=== PATIENT | female | born 1950 | race Caucasian/White ===

== ENCOUNTER 2020-04-25 09:52 | Outpatient (REF) | payer MEDICARE, MEDICAID, SELFPAY ==
--- NOTE | 2020-04-25 11:49 | ECG_ITS ---
Test Reason : CP Blood Pressure : / mmHG Vent. Rate : 086 BPM Atrial Rate : 086 BPM P-R Int : 154 ms QRS Dur : 078 ms QT Int : 360 ms P-R-T Axes : 052 047 041 degrees QTc Int : 430 ms Normal sinus rhythm Nonspecific ST abnormality Abnormal ECG When compared with ECG of 07-NOV-2019 11:13, No significant change was found Referred By: Kim Quinn Electronically Signed By:JORGE LAUGHLIN MD
[2020-04-25 11:59] LABS: MANUAL DIFF FLAG NO
[2020-04-25 12:09] LABS: Basophils Percent Auto 0.2 % (0-2); Eosinophils Absolute Auto 0.3 X10*3/uL (0.0-0.4); Eosinophils Percent Auto 2.1 % (0-4); Hematocrit 41.7 % (37-47); Hemoglobin 12.9 g/dl (12.0-16.0); Imm Gran Abs Auto 0.04 X10*3/uL (0.00-0.03); Imm Gran Pct Auto 0.3 % (0.0-0.4); Lymphocytes Absolute Auto 3.8 X10*3/uL (1.2-4.9); Lymphocytes Percent Auto 31.4 % (20-40); Mean Corpuscular HGB Conc 30.9 g/dl (31.0-35.0); Mean Corpuscular Hemoglobin 27.6 pg (27.0-33.0); Mean Corpuscular Volume 89.3 fL (80-98); Monocytes Absolute Auto 0.7 X10*3/uL (0.1-1.2); Monocytes Percent Auto 5.7 % (2-11); Neutrophils Absolute Auto 7.3 X10*3/uL (2.0-8.3); Neutrophils Percent Auto 60.3 % (45-73); Platelet Count 286 X10*3/uL (160-400); Red Blood Count 4.67 X10*6/uL (4.20-5.50); Red Cell Distribution Width 13.9 % (11.0-16.0); White Blood Count 12.1 X10*3/uL (4.8-10.8)
[2020-04-25 12:48] LABS: Anion Gap 14 (12-20); Blood Urea Nitrogen 15 mg/dL (9-16); Calcium 9.2 mg/dL (8.4-10.2); Carbon Dioxide 31 mmol/L (22-29); Chloride 101 mmol/L (96-108); Estimated Glomerular Filt Rate 48; Glucose Random 89 mg/dL (60-115); Potassium 4.7 mmol/l (3.3-5.1); Sodium 141 mmol/L (135-145)
== END 2020-04-25 09:53 | disposition home or self-care (01) ==
LOC: HO.LAB 09:52
PROVIDERS: PCP Internal Medicine; Referring Provider Orthopaedic Surgery; Visit Provider Physician Assistant
DX: Z01.810 Encounter for preprocedural cardiovascular examination (principal)
CPT/HCPCS: 36415; 80048; 85025; 93005

== ENCOUNTER 2020-05-23 14:31 | Outpatient (REF) | payer MEDICARE, MEDICAID, SELFPAY | END 2020-05-23 14:32 | disposition home or self-care (01) | LOC: HO.LAB 14:31 | PROVIDERS: PCP Internal Medicine; Visit Provider Physician Assistant | DX: Z13.89 Encounter for screening for other disorder (principal) ==

== ENCOUNTER → 2020-05-24 09:21 | Outpatient (BNVA) | payer MEDICARE, MEDICAID, SELFPAY | PROVIDERS: PCP Internal Medicine; Visit Provider Orthopaedic Surgery | DX: Z76.89 Persons encountering health services in other specified circumstances (principal) ==

== ENCOUNTER 2020-05-25 13:20 | Outpatient (REF) | payer MEDICARE, MEDICAID, SELFPAY | END 2020-05-25 13:21 | disposition home or self-care (01) | LOC: HO.MAMMO 13:20 | PROVIDERS: PCP Internal Medicine; Visit Provider Internal Medicine | DX: Z13.89 Encounter for screening for other disorder (principal) ==

== ENCOUNTER 2020-05-28 05:40 | Inpatient (IN) | payer MEDICARE, MEDICAID, SELFPAY ==
[2020-05-14 14:03] VITALS: BMI 38.5
[2020-05-14 14:28] VITALS: BP 141/63; PULSE 95; RESP 24; O2SAT 94
--- NOTE | 2020-05-14 14:43 | P.CONAN_ITS ---
Documented by User: Ethel Parsons 05/14/20 15:00 HPI - Anesthesia Eval Consult details Narrative: 70yo F for L Knee Replacement Total PCP clearance pending [facility] Past Medical History Medical History Arthritis Back pain COPD (chronic obstructive pulmonary disease) CPAP (continuous positive airway pressure) dependence 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, managed as type 1 DMII (diabetes mellitus, type 2) Elevated cholesterol GERD (gastroesophageal reflux disease) History of adrenal adenoma History of diverticulitis History of restless legs syndrome Hx SBO Hyperlipidemia No family history of adverse response to anesthesia ALDO (obstructive sleep apnea) Osteochondroma of left femur Sleep apnea Wears dentures Wears glasses Family History Family History Father HTN (hypertension) Diabetes mellitus Mother HTN (hypertension) Liver cancer Family history of problems with anesthesia: No Surgical History Surgical History (Updated 05/23/20 @ 10:25 by Treva Hess CMA) H/O colonoscopy H/O excision of mass H/O exploratory laparotomy History of appendectomy History of arthroscopy of left knee History of cholecystectomy History of hysterectomy History of oophorectomy History of partial colectomy History of surgery Hx of cataract extraction History of Problems with Anesthesia: No Social History Social History Are you a primary health care technician to a significant other at home: No Do you presently have visiting nurse or other home services: No Smoking Status: Never smoker Second Hand Smoke Exposure: Yes Use of substances other than those prescribed or required for medical reasons: No Have you been hit, kicked, punched, or otherwise hurt by someone within the past year? If so, by whom?: No Advance Directives Information Provided: No Recently lost weight without trying: No Narrative Narrative: No recent illness >4 mets with walking/stairs Meds Allergies Allergy/AdvReac Type Severity Reaction Status Date / Time adhesive tape [ADHESIVE TAPE] Allergy Intermediate RASH Verified 05/23/20 13:19 trimethobenzamide Allergy Mild NAUSEA Verified 05/23/20 13:19 [From TIGAN] environmental Allergy Intermediate Nasal Uncoded 05/23/20 10:40 congestion Home Medications Medication Instructions Recorded Confirmed Type blood sugar diagnostic #10 ea 10/14/20 11/04/20 History bupropion HCl 150 mg 24 hr tablet, 150 mg PO QAM 04/25/20 05/16/20 History extended release fluticasone propionate 50 1 spray INTRANASAL DAILY 04/25/20 05/16/20 History mcg/actuation nasal spray,suspension gabapentin 300 mg capsule 300 mg PO BID 04/25/20 05/16/20 History lancets 28 gauge #100 ea 04/25/20 05/16/20 History mirabegron 25 mg tablet,extended 25 mg PO QAM 04/25/20 05/16/20 History release 24 hr montelukast 10 mg tablet 10 mg PO QAM 04/25/20 05/16/20 History oxygen-air delivery systems #1 04/25/20 05/16/20 History pen needle, diabetic 31 gauge x #50 ea 04/25/20 05/16/20 History 3/16 ropinirole 1 mg tablet 1 mg PO BID 04/25/20 05/16/20 History trazodone 100 mg tablet 250 mg PO BEDTIME 04/25/20 05/16/20 History Levemir FlexTouch U-100 Insuln 20 unit SUBCUT QAM 05/14/20 05/16/20 History albuterol sulfate [Ventolin HFA] 2 puff INHALATION Q4-6H PRN 05/14/20 05/16/20 History metformin 500 mg PO QAM 05/14/20 05/16/20 History lidocaine 5 % topical patch 1 patch TOPICAL DAILY 05/16/20 05/16/20 History albuterol sulfate 90 mcg/actuation 2 inh INHALATION Q6H 05/23/20 History breath activated powder inhaler,sensor aspirin 81 mg tablet,delayed 81 mg PO DAILY 05/23/20 History release fluticasone propionate 115 2 puff INHALATION BID 05/23/20 History mcg-salmeterol 21 mcg/actuation HFA inhaler gabapentin 300 mg capsule 300 mg PO BEDTIME 05/23/20 History insulin glargine 100 unit/mL (3 10 unit SUBCUT QAM 05/23/20 History mL) subcutaneous pen montelukast 10 mg tablet 10 mg PO DAILY 05/23/20 History sertraline 25 mg tablet 25 mg PO DAILY 05/23/20 History sertraline 50 mg tablet 50 mg PO DAILY 05/23/20 History valacyclovir 500 mg tablet mg PO 05/23/20 History Exam Exam Date and Time: May 14, 2020 1443 Height,Weight and Vital Signs: Height 5 ft Weight 89.6 kg Last Vital Signs Pulse 95 05/14/20 14:28 Resp 24 H 05/14/20 14:28 BP 141/63 H 05/14/20 14:28 Pulse Ox 94 05/14/20 14:28 Pertinent Lab Results Pertinent Lab Results: Laboratory Tests 12/27/19 04/25/20 04/25/20 10:22 11:35 11:35 WBC 12.1 H Hgb 12.9 Hct 41.7 Plt Count 286 Sodium 141 Potassium 4.7 Chloride 101 Carbon Dioxide 31 H BUN 15 Creatinine 1.12 Hemoglobin A1c 5.9 Narrative Narrative: EKG 04/25/20: NSR@86, Nonspecific ST abnorm Airway Mallampati Class: III (Small mouth) Neck ROM: Full Denture: Upper Partial: Lower Heart: RRR Lungs: Bilat upper wheeze, clear bilat bases Assessment and Plan Assessment Anesthesia Assessment: Anesthesia Plan Discussed and PAT Visit Documented by User: Roderick Hutchinson 05/28/20 07:24 [facility] Past Medical History Medical History Arthritis Back pain COPD (chronic obstructive pulmonary disease) CPAP (continuous positive airway pressure) dependence 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, managed as type 1 DMII (diabetes mellitus, type 2) Elevated cholesterol GERD (gastroesophageal reflux disease) History of adrenal adenoma History of diverticulitis History of restless legs syndrome Hx SBO Hyperlipidemia No family history of adverse response to anesthesia ALDO (obstructive sleep apnea) Osteochondroma of left femur Sleep apnea Wears dentures Wears glasses Family History Family History Father HTN (hypertension) Diabetes mellitus Mother HTN (hypertension) Liver cancer Surgical History Surgical History (Updated 05/23/20 @ 10:25 by Treva Hess CMA) H/O colonoscopy H/O excision of mass H/O exploratory laparotomy History of appendectomy History of arthroscopy of left knee History of cholecystectomy History of hysterectomy History of oophorectomy History of partial colectomy History of surgery Hx of cataract extraction Social History Social History Are you a primary health care technician to a significant other at home: No Do you presently have visiting nurse or other home services: No Smoking Status: Never smoker Second Hand Smoke Exposure: Yes Use of substances other than those prescribed or required for medical reasons: No Have you been hit, kicked, punched, or otherwise hurt by someone within the past year? If so, by whom?: No Advance Directives Information Provided: No Recently lost weight without trying: No Meds Allergies Allergy/AdvReac Type Severity Reaction Status Date / Time adhesive tape [ADHESIVE TAPE] Allergy Intermediate RASH Verified 05/23/20 13:19 trimethobenzamide Allergy Mild NAUSEA Verified 05/23/20 13:19 [From TIGAN] environmental Allergy Intermediate Nasal Uncoded 05/23/20 10:40 congestion Home Medications Medication Instructions Recorded Confirmed Type blood sugar diagnostic #10 ea 04/25/20 05/16/20 History bupropion HCl 150 mg 24 hr tablet, 150 mg PO QAM 04/25/20 05/16/20 History extended release fluticasone propionate 50 1 spray INTRANASAL DAILY 04/25/20 05/16/20 History mcg/actuation nasal spray,suspension gabapentin 300 mg capsule 300 mg PO BID 04/25/20 05/16/20 History lancets 28 gauge #100 ea 04/25/20 05/16/20 History mirabegron 25 mg tablet,extended 25 mg PO QAM 04/25/20 05/16/20 History release 24 hr montelukast 10 mg tablet 10 mg PO QAM 04/25/20 05/16/20 History oxygen-air delivery systems #1 04/25/20 05/16/20 History pen needle, diabetic 31 gauge x #50 ea 04/25/20 05/16/20 History 3/16 ropinirole 1 mg tablet 1 mg PO BID 04/25/20 05/16/20 History trazodone 100 mg tablet 250 mg PO BEDTIME 04/25/20 05/16/20 History Levemir FlexTouch U-100 Insuln 20 unit SUBCUT QAM 05/14/20 05/16/20 History albuterol sulfate [Ventolin HFA] 2 puff INHALATION Q4-6H PRN 05/14/20 05/16/20 History metformin 500 mg PO QAM 05/14/20 05/16/20 History lidocaine 5 % topical patch 1 patch TOPICAL DAILY 05/16/20 05/16/20 History albuterol sulfate 90 mcg/actuation 2 inh INHALATION Q6H 05/23/20 History breath activated powder inhaler,sensor aspirin 81 mg tablet,delayed 81 mg PO DAILY 05/23/20 History release fluticasone propionate 115 2 puff INHALATION BID 05/23/20 History mcg-salmeterol 21 mcg/actuation HFA inhaler gabapentin 300 mg capsule 300 mg PO BEDTIME 05/23/20 History insulin glargine 100 unit/mL (3 10 unit SUBCUT QAM 05/23/20 History mL) subcutaneous pen montelukast 10 mg tablet 10 mg PO DAILY 05/23/20 History sertraline 25 mg tablet 25 mg PO DAILY 05/23/20 History sertraline 50 mg tablet 50 mg PO DAILY 05/23/20 History valacyclovir 500 mg tablet mg PO 05/23/20 History Exam Airway Mallampati Class: III TM Dist: >3cm Neck ROM: Limited Loose/Missing/Broken Teeth: Yes (No upper. Missing some lower) Heart: RRR Assessment and Plan Assessment Anesthesia Assessment: Anesthesia Plan Discussed Final Anesthetic Review NPO: Yes (Except medicatons) ASA Class: III Final Preanesthetic Review: Consent Obtained/Reviewed Anesthetic Plan Anesthetic Plan: Spinal and Regional Block Disposition: Standard PACU
[2020-05-15 08:28] LABS: MRSA Nasal PCR NEGATIVE (Negative); SA Nasal PCR NEGATIVE (Negative)
[2020-05-28] VITALS (13 sets, daily range): BP systolic 116–144; BP diastolic 55–66; PULSE 72–88; RESP 16–20; TEMP 35.8–36.2; O2SAT 94–100
[2020-05-28 06:11] LABS: COVID-19 Test Negative (Negative)
[2020-05-28 06:37] LABS: Glucose, Whole Blood 132 mg/dL (60-115)
[2020-05-28] MEDS: Gabapentin 600 MG TABLET PO (06:58)
[2020-05-28] MEDS: Lactated Ringers 1,000 ML 100 ML IVCONT ×3 (07:12→21:50)
[2020-05-28] MEDS: ceFAZolin Sodium/Dextrose,Iso 2 GM/50 ML PIGGYBACK IV ×2 (07:13→14:23)
--- NOTE | 2020-05-28 07:30 | MHC.SHP ---
Pre-Procedural Eval Section A The patient is an INPATIENT: No Changes since office visit: No Cold of Flu in the past 2 weeks, No New Medical Problems, No Changes in Medication and No Patient answered all questions The History & Physical has been completed within 30 days and I have reviewed it.: Yes Section B Chief Complaint: osteoarthritis/LEFT TOTAL KNEE ARTHROPLASTY Allergies: Allergies Allergy/AdvReac Type Severity Reaction Status Date / Time adhesive tape [ADHESIVE TAPE] Allergy Intermediate RASH Verified 05/23/20 13:19 trimethobenzamide Allergy Mild NAUSEA Verified 05/23/20 13:19 [From TIGAN] environmental Allergy Intermediate Nasal Uncoded 05/23/20 10:40 congestion Plan Patient has been examined and remains a candidate for the planned procedure
--- NOTE | 2020-05-28 09:18 | PM.PRCOR ---
Brief Operative Note Date of procedure: 05/28/20 Pre-op diagnosis: oa left knee Post-op diagnosis: same Procedure: left tka Anesthesia: regional and spinal Surgeon: Tonya Shaw Estimated blood loss (mL): 75 Condition: stable Disposition: PACU
[2020-05-28] MEDS: ondansetron HCL 4 MG/2 ML VIAL IVPUSH (09:38)
[2020-05-28] MEDS: Morphine Sulfate 2 MG/ML CARTRIDGE IVPUSH ×2 (11:15→16:53)
[2020-05-28] MEDS: Ketorolac Tromethamine 15 MG/ML VIAL IVPUSH ×3 (11:30→22:06)
[2020-05-28] MEDS: oxyCODONE HCl Immed Release 5 MG TABLET 10 MG PO (11:31)
[2020-05-28] MEDS: Acetaminophen 325 MG TABLET 650 MG PO ×3 (11:31→22:06)
--- NOTE | 2020-05-28 13:48 | PM.IMCN ---
History of Present Illness Data of Consult Service Date: 05/28/20 <Rebecca Calloway NP - Last Filed: 05/28/20 17:04> Requesting physician: Tonya Shaw <Rebecca Calloway NP - Last Filed: 05/28/20 17:04> Primary Care Provider: Shelbi Perez MD <Rebecca Calloway NP - Last Filed: 05/28/20 17:04> HPI Reason for consult: Medical Management <Rebecca Calloway NP - Last Filed: 05/28/20 17:04> 70 year old women with multiple medical problems including diabetes, GERD and HLD. She was admitted by orthopedic surgery and is status post lefr knee arthroplasty. Surgery was unremarkable, Vital signs are stable. She was sitting in the chair with no acute medical complaints. <Rebecca Calloway NP - Last Filed: 05/28/20 17:04> Review of Systems Review of Systems: Denies any recent fever chills or decrease in appetite respiratory denies any shortness of breath coverage production cardiovascular is adjustment of any PND or edema gastrointestinal denies any dysphagia abdominal pain nausea vomiting or diarrhea genitourinary denies any dysuria frequency or hematuria musculoskeletal knee pain neuropsych denies any weakness or seizures all other systems reviewed are negative <Rebecca Calloway NP - Last Filed: 05/28/20 17:04> [facility] Medical History: Medical History Arthritis Back pain COPD (chronic obstructive pulmonary disease) CPAP (continuous positive airway pressure) dependence 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, managed as type 1 DMII (diabetes mellitus, type 2) Elevated cholesterol GERD (gastroesophageal reflux disease) History of adrenal adenoma History of diverticulitis History of restless legs syndrome Hx SBO Hyperlipidemia No family history of adverse response to anesthesia ALDO (obstructive sleep apnea) Osteoarthritis of left knee Osteochondroma of left femur Sleep apnea Wears dentures Wears glasses <Rebecca Calloway NP - Last Filed: 05/28/20 17:04> Family History: Family History Father HTN (hypertension) Diabetes mellitus Mother HTN (hypertension) Liver cancer <Rebecca Calloway NP - Last Filed: 05/28/20 17:04> Surgical History: Surgical History H/O colonoscopy H/O excision of mass H/O exploratory laparotomy History of appendectomy History of arthroscopy of left knee History of cholecystectomy History of hysterectomy History of oophorectomy History of partial colectomy History of surgery Hx of cataract extraction <Rebecca Calloway NP - Last Filed: 05/28/20 17:04> Social History: Social History Smoking Status: Never smoker Second Hand Smoke Exposure: Yes service: No Current occupational status: unemployed <Rebecca Calloway NP - Last Filed: 05/28/20 17:04> Meds Allergies/Adverse reactions: Allergies Allergy/AdvReac Type Severity Reaction Status Date / Time adhesive tape [ADHESIVE TAPE] Allergy Intermediate RASH Verified 06/13/20 12:55 trimethobenzamide Allergy Mild NAUSEA Verified 06/13/20 12:55 [From [facility]] environmental Allergy Intermediate Nasal Uncoded 05/23/20 10:40 congestion <Rebecca Calloway NP - Last Filed: 05/28/20 17:04> Home medications: Home Medications Medication Instructions Recorded Confirmed Type blood sugar diagnostic #10 ea 04/25/20 05/16/20 History bupropion HCl 150 mg 24 hr tablet, 150 mg PO QAM 04/25/20 05/16/20 History extended release fluticasone propionate 50 1 spray INTRANASAL DAILY 04/25/20 05/16/20 History mcg/actuation nasal spray,suspension gabapentin 300 mg capsule 300 mg PO BID@09,16 04/25/20 05/28/20 History lancets 28 gauge #100 ea 04/25/20 05/16/20 History mirabegron 25 mg tablet,extended 25 mg PO QAM 04/25/20 05/16/20 History release 24 hr oxygen-air delivery systems #1 04/25/20 05/16/20 History pen needle, diabetic 31 gauge x #50 ea 04/25/20 05/16/20 History 3/16 ropinirole 1 mg tablet 1 mg PO BID 04/25/20 05/16/20 History trazodone 100 mg tablet 250 mg PO BEDTIME 04/25/20 05/16/20 History Levemir FlexTouch U-100 Insuln 20 unit SUBCUT QAM 05/14/20 05/16/20 History albuterol sulfate [Ventolin HFA] 2 puff INHALATION Q4H PRN 05/14/20 05/28/20 History metformin 500 mg PO QAM 05/14/20 05/16/20 History lidocaine 5 % topical patch 1 patch TOPICAL DAILY 05/16/20 05/28/20 History aspirin 81 mg tablet,delayed 81 mg PO DAILY 05/23/20 05/28/20 History release fluticasone propionate 115 2 puff INHALATION BID 05/23/20 05/28/20 History mcg-salmeterol 21 mcg/actuation HFA inhaler gabapentin 300 mg capsule 600 mg PO BEDTIME 05/23/20 05/28/20 History montelukast 10 mg tablet 10 mg PO BEDTIME 05/23/20 05/28/20 History sertraline 50 mg tablet 50 mg PO DAILY 05/23/20 05/28/20 History <Rebecca Calloway NP - Last Filed: 05/28/20 17:04> Physical Exam Vital Signs and Narrative: Vital Signs: Last Vital Signs Temp 96.5 F L 05/28/20 10:15 Pulse 74 05/28/20 13:05 Resp 18 05/28/20 10:45 BP 134/55 L 05/28/20 13:05 Pulse Ox 97 05/28/20 13:05 Body Mass Index 38.5 <Rebecca Calloway NP - Last Filed: 05/28/20 17:04> Appearing in no acute distress head is normocephalic atraumatic eyes pupils are PERRLA sclera is anicteric mouth throat mucous membranes are intact and moist neck is supple no lymphadenopathy, no JVD noted lung sounds are clear to auscultation heart regular rate rhythm, clear S1, S2 positive bowel sounds, abdomen is soft, nontender neuro patient is alert x3, no focal deficits MSK left knee with clean, dry dressing. <Rebecca Calloway NP - Last Filed: 05/28/20 17:04> Results Labs CBC and Chem 7: : 05/29/20 06:34 <Rebecca Calloway NP - Last Filed: 05/28/20 17:04> Labs: Laboratory Results - last 24 hr 05/28/20 05/28/20 05/28/20 05:40 05:40 06:33 POC Glucose 132 H COVID-19 PCR Cancelled COVID-19 (JESSIKA) Negative COVID-19 Clin Com See Note <Rebecca Calloway NP - Last Filed: 05/28/20 17:04> Assessment and Plan (1) Osteoarthritis of left knee: 70 year old women status post left knee arthroplasty Left knee arthroplasty. Management as per surgical team, pain medications. Diabetes. Sliding scale, ADA diet HLD. Continue statin. Depression. Continue home medications. DVT prophylaxis with full dose aspirin. Discussed with Dr. Diaz Full code <Rebecca Calloway NP - Last Filed: 05/28/20 17:04>
[2020-05-28] MEDS: HYDROmorphone HCl 2 MG TABLET PO ×3 (14:23→23:42)
--- NOTE | 2020-05-28 15:30 | MHC.CM.PN ---
nurse caretaker grounds note electronic medical record reviewed aong with case disc uissed with staff tracy . met with patient and explained the re of the nurse caretaker grounds t her she lives with her she has a cane , walker at home but was not using it she did not want to get dependent on this , she has no vna ,no dme services in the home . she reported that she has copd and has no machinery, she has sleep apnea and in the past she had cpap machine but this was discontinued by pulmonary after she lost much weight. patient checks her poc 2x weekly and since her weight loss her physican has decreased her medication doses she has a psychiatricist and is pending her getting a new face to face interactive session after the covid for anxiety and depresison reviewed with patient the list of the vna agencies for her to choose and she chose the [facility] for nursing [facility] home physical discharge plan home with her , with new referral to the [facility] for ? nursing and home physical natividad guardado iniated referra to [facility] f/u as directed on the discharge instructions. transportation family medicare imm explained to her and paperwork given to her
[2020-05-28] MEDS: oxyCODONE HCl Immed Release 5 MG TABLET PO (16:51)
[2020-05-28] MEDS: 0.9 % Sodium Chloride Flush 3 ML SYRINGE IVFLUSH (16:52)
[2020-05-28] MEDS: traZODone HCL 50 MG TABLET 250 MG PO (21:42)
[2020-05-28] MEDS: Docusate Sodium 100 MG CAPSULE PO (21:43)
[2020-05-28] MEDS: Gabapentin 300 MG CAPSULE 600 MG PO (21:43)
[2020-05-28] MEDS: rOPINIRole HCL 1 MG TABLET PO (21:43)
[2020-05-28 21:51] LABS: Glucose, Whole Blood 171 mg/dL (60-115)
[2020-05-28] MEDS: Insulin Lispro 100 UNIT/ML 3 ML VIAL SUBCUT (22:05)
[2020-05-29] VITALS (8 sets, daily range): BP systolic 114–139; BP diastolic 48–81; PULSE 77–94; RESP 16–19; TEMP 36.2–36.8; O2SAT 91–99; BMI 38.5
[2020-05-29] MEDS: Acetaminophen 325 MG TABLET 650 MG PO ×4 (04:08→21:55)
[2020-05-29] MEDS: Ketorolac Tromethamine 15 MG/ML VIAL IVPUSH ×4 (04:09→21:56)
[2020-05-29] MEDS: HYDROmorphone HCl 2 MG TABLET PO ×4 (05:07→18:20)
--- NOTE | 2020-05-29 07:00 | XR_ITS ---
EXAMINATION: XR KNEE, LEFT CLINICAL INFORMATION: Postop COMPARISON: 03/07/2020 TECHNIQUE: Two views of the left knee. FINDINGS: There is a total left knee arthroplasty. The distal femoral component articulates appropriately with the tibial plateau and patellar components. No periprosthetic lucency or fracture. Postoperative soft tissue and joint space gas. Anterior skin stephanie. Smooth osseous excrescence at the medial aspect of the distal femoral metaphysis is unchanged suggestive of osteochondroma. XR/XR knee LT 2V IMPRESSION: Total left knee arthroplasty in typical positioning and alignment.
[2020-05-29 07:05] LABS: Hematocrit 33.4 % (37-47); Hemoglobin 10.3 g/dl (12.0-16.0)
--- NOTE | 2020-05-29 07:53 | P.PNOP_ITS ---
Subjective Subjective Interval history: POD1 s/p LT TKA. Patient resting comfortably in bed. Pain management was an issue overnight. Patient was switched to Dilauded and her pain is now tolerable. She has gotten out of bed to use the bathroom. Denies SOB or chest pain. Physical Exam Vital Signs: Vital Signs: Last Vital Signs Temp 97.1 F 05/29/20 04:00 Pulse 85 05/29/20 04:00 Resp 18 05/29/20 04:00 BP 124/48 L 05/29/20 04:00 Pulse Ox 99 05/29/20 04:00 Body Mass Index 38.5 Const: General: cooperative, healthy appearing and no acute distress Resp: Effort & Inspection: normal respiratory effort and able to speak in complete sentences Cardio: Rate: regular rate Peripheral pulses: Peripheral pulses 2+ throughout GI: Inspection: Yes normal to inspection Palpation (GI): Soft to palpation Skin: General skin exam: no rashes or lesions noted Extrem: Other: No ecchymosis, redness, or drainage. Dressing is clean dry and intact. NVI Progress Note: A&P Assessment and plan (1) Status post left knee replacement: Status: Acute Assessment and Plan: Continue pain mgmnt Begin ASA for dvt ppx today begin PT for LT TKA Dispo planning-Pending PT eval, pain mgmnt Fall Risk Details Current Medications: Current Medications Generic Name Dose Route Start Last Admin Trade Name Freq PRN Reason Stop Dose Admin Acetaminophen 650 mg 05/28/20 10:45 05/29/20 04:08 Acetaminophen 325 Mg Tablet PO 650 mg Q6H RANGEL Administration Albuterol Sulfate 2 puff 05/28/20 18:42 Albuterol Sulfate 90 Mcg 8 Gm Inhaler INHALE Q4H PRN Shortness Of Breath Aspirin 325 mg 05/29/20 22:00 Aspirin 325 Mg Tablet PO BID RANGEL Atorvastatin Calcium 80 mg 05/29/20 09:00 Atorvastatin Calcium 80 Mg Tablet PO DAILY RANGEL Bupropion HCl 150 mg 05/29/20 09:00 Bupropion Hcl Xl 150 Mg Tab.Er.24h PO DAILY RANGEL Docusate Sodium 100 mg 05/28/20 21:00 05/28/20 21:43 Docusate Sodium 100 Mg Capsule PO 100 mg BID RANGEL Administration Fentanyl 25 mcg 05/28/20 09:33 Fentanyl Citrate/Pf 100 Mcg/2 Ml Vial IVPUSH Q5M PRN Pain, Moderate (Pain Scale 4-6 Fluticasone Propionate 1 spray 05/29/20 09:00 Fluticasone Propionate Nasal 16 Gm [place] NOSTRIL-B DAILY [facility] Fluticasone/Vilanterol 1 puff 05/29/20 08:00 Fluticasone/Vilanterol 100/25 Blst.W.Dev INHALE RDAILY [facility] Gabapentin 300 mg 05/29/20 09:00 Gabapentin 300 Mg Capsule PO BID@ [facility] Gabapentin 600 mg 05/28/20 21:00 05/28/20 21:43 Gabapentin 300 Mg Capsule PO 600 mg BEDTIME [facility] Administration Hydromorphone HCl 0.25 mg 05/28/20 09:33 Hydromorphone Hcl 0.5 Mg/0.5 Ml Syringe IVPUSH Q5M PRN Pain, Severe (Pain Scale 7-10) Hydromorphone HCl 2 mg 05/28/20 13:22 05/29/20 05:07 Hydromorphone Hcl 2 Mg Tablet PO 2 mg Q4H PRN Administration Pain, Moderate (Pain Scale 4-6 Lactated Ringer's 1,000 mls @ 100 mls/hr 05/28/20 05:45 05/28/20 21:50 Lr IVCONT 100 mls/hr .Q10H [facility] Administration Insulin Glargine 14 unit 05/29/20 09:00 Insulin Glargine,Hum.Rec.Anlog 100 Unit/Ml 10 Ml Vial SUBCUT DAILY [facility] Insulin Human Lispro 0 unit 05/28/20 21:00 05/28/20 22:05 Insulin Lispro 100 Unit/Ml 3 Ml Vial SUBCUT 2 unit QIDACHS [facility] Administration Protocol Ketorolac Tromethamine 15 mg 05/28/20 10:45 05/29/20 04:09 Ketorolac Tromethamine 15 Mg/Ml Vial IVPUSH 15 mg Q6H [facility] Administration Lidocaine 1 patch 05/29/20 09:00 Lidocaine 4 % Patch Adh..Patch TRANSDERMA DAILY PRN Pain, Mild (Pain Scale 1-3) Metformin HCl 500 mg 05/29/20 09:00 Metformin Hcl 500 Mg Tablet PO DAILY [facility] Mirabegron 25 mg 05/29/20 09:00 Mirabegron 25 Mg Tab.Er.24h PO DAILY [facility] Montelukast Sodium 10 mg 05/28/20 21:00 05/28/20 21:43 Montelukast Sodium 10 Mg Tablet PO Not Given BEDTIME RANGEL Morphine Sulfate 2 mg 05/28/20 10:45 05/28/20 16:53 Morphine Sulfate 2 Mg/Ml Cartridge IVPUSH 2 mg Q2H PRN Administration Pain, Severe (Pain Scale 7-10) Naloxone HCl 0.2 mg 05/28/20 10:45 Naloxone Hcl 0.4 Mg/Ml Vial IVPUSH Q2M PRN Excessive sedation or RR < 8 Ondansetron HCl 4 mg 05/28/20 09:33 05/28/20 09:38 Ondansetron Hcl 4 Mg/2 Ml Vial IVPUSH 4 mg ONCE PRN Administration Nausea and Vomiting Ondansetron HCl 4 mg 05/28/20 10:45 Ondansetron Hcl 4 Mg/2 Ml Vial IVPUSH Q8H PRN Nausea and Vomiting Pharmacy Consult 1 each 05/28/20 16:42 Consult Rx Perform Med Rec MISCELLANE ONCE PRN Consult order Ropinirole HCl 1 mg 05/28/20 21:00 05/28/20 21:43 Ropinirole Hcl 1 Mg Tablet PO 1 mg BID RANGEL Administration Sertraline HCl 50 mg 05/29/20 09:00 Sertraline Hcl 50 Mg Tablet PO DAILY [facility]ANG[facility] Sodium Chloride 3 ml 05/28/20 16:00 05/29/20 07:12 0.9 % Sodium Chloride Flush 3 Ml Syringe IVFLUSH Not Given QSHIFT RANGEL Trazodone HCl 250 mg 05/28/20 21:00 05/28/20 21:42 Trazodone Hcl 50 Mg Tablet PO 250 mg BEDTIME RANGEL Administration Time Spent With Patient Time: Total time spent is greater than 50% in coordination of care (as documented) at patient's floor/unit and/or counseling patient: Time with patient: 15 - 24 minutes Procedures Abscess I/D Date of Service: 05/29/20
[2020-05-29 08:18] LABS: Glucose, Whole Blood 136 mg/dL (60-115)
[2020-05-29] MEDS: Mirabegron 25 MG TAB.ER.24H PO (08:31)
[2020-05-29] MEDS: Gabapentin 300 MG CAPSULE PO ×2 (08:31→16:19)
[2020-05-29] MEDS: rOPINIRole HCL 1 MG TABLET PO ×2 (08:31→21:56)
[2020-05-29] MEDS: Docusate Sodium 100 MG CAPSULE PO ×2 (08:31→21:56)
[2020-05-29] MEDS: metFORMIN HCl 500 MG TABLET PO (08:31)
[2020-05-29] MEDS: Atorvastatin Calcium 80 MG TABLET PO (08:31)
[2020-05-29] MEDS: Insulin Glargine,Hum.rec.anlog 100 UNIT/ML 10 ML VIAL 14 UNIT SUBCUT (08:32)
[2020-05-29] MEDS: Fluticasone Propionate Nasal 16 GM SPRAY 1 SPRAY NOSTRIL-B (08:58)
--- NOTE | 2020-05-29 09:26 | HO.POSTANES ---
Post Anesthesia Evaluation Post Anesthesia Evaluation Vital Signs: Vital Signs Temp Pulse Resp BP Pulse Ox 05/29/20 08:00 97.7 F 89 19 126/81 96 05/29/20 04:00 97.1 F 85 18 124/48 L 99 05/29/20 00:01 98.3 F 77 16 114/52 L 98 Anesthesia: Spinal Mental Status: Awake Pain Control: Satisfactory Nausea/Vomiting: None Hydration: Adequate Anesthesia-Related Issues: No Anes. Related Issues
--- NOTE | 2020-05-29 09:40 | OP_ITS ---
SURGEON: Tonya Shaw MD PREOPERATIVE DIAGNOSIS: Osteoarthritis, left knee. POSTOPERATIVE DIAGNOSIS: Osteoarthritis, left knee. PROCEDURE PERFORMED: Left total knee arthroplasty - Seema NexGen CR-Flex size D, left GSF femur, 5 x 10 mm monoblock tibial component, 32 mm monoblock patellar component. ESTIMATED BLOOD LOSS: COMPLICATIONS: ANESTHESIA: ASSISTANTS: SPECIMENS: STORAGE MANAGEMENT CONSULTANT: EDMUND Hughes CLINICAL NOTE: This lady has had ongoing problems with osteoarthritis involving the left knee over number of years. Over time, she has subsequently become medically stable and cleared for surgery and therefore after explaining the risks, benefits, and alternatives and answering all the questions, it was mutually agreed upon to carry out the following procedure. DESCRIPTION OF PROCEDURE: Under adductor block and spinal anesthetic, the patient was placed supine on the operating table. Pneumatic tourniquet cuff was placed around the upper left thigh and inflated to 300 mmHg at the beginning of the case. The left knee was then prepped and draped in standard fashion. Surgical time-out was then performed. The patient was identified, procedure confirmed, site confirmed. Medical analogy and history reviewed. Preoperative antibiotics were given. Tranexamic acid was given as well. All other items were discussed and agreed upon. Standard midline approach to the knee was carried out, taken down through subcutaneous tissues. Hemostasis was achieved along the way using electrocautery. This brought us down to the level of the extensor mechanism, where standard medial parapatellar arthrotomy was carried out. The patella was retracted to lateral gutter. The soft tissue elevated from the anterior aspect of the femur. At the level of the tibia, the soft tissue elevated medially subperiosteally protecting medial-sided soft tissues. Then, portion of the meniscus was excised. Similarly on the lateral side, portion of the fat pad, portion of the meniscus were excised and soft tissue elevated protecting the lateral-sided soft tissues. The ACL was resected. We turned our attention to the femur. Standard intramedullary hole was established. Cutting guide was set for 5 degrees of valgus with a standard cut was resected flat. The sizing guide was then used. Size was size D. The 3-degree external rotation pins were set. The all-in-one cutting guide was placed over the distal end. Following this, the anterior and anterior chamfer, posterior and posterior chamfer, and patellar recess cuts were all made. The lug holes were made. The guides were removed. Bony fragments were removed. We turned our attention to the tibia. Extramedullary guide was used in standard fashion, referencing the tibial tubercle, subcutaneous port of the tibia, and the middle of the ankle. The slope was set. It was set for minimal resection. It was resected flat. A trial reduction was then performed using the 5 tibial base plate aligned with the extramedullary guided pin with a 10 mm trial liner. This was performed using the CR-Flex GSF femur. This showed external alignment, full range of motion, and stability at 0, 30, 60, and 90 degrees of flexion. We then turned our attention to the patella. Soft tissue elevated circumferentially, it was resected flat. The 32 mm guide was selected. It fit nicely. The lug hole was made. The trial component was put into place. The knee was placed through range of motion. Patella tracked centrally and therefore, the size D CR-Flex GSF femur for the left side along with 5 x 10 mm monoblock tibial component, 32 mm monoblock patellar component were all selected and brought up to the table. The trial components were all removed after the peg holes of the tibia was made. The tourniquet was let down. Total tourniquet time of 41 minutes. The area of the lateral genicular artery was identified and cauterized. The knee was then thoroughly irrigated. Permanent components were brought up the table. The tibia followed by the femur, followed by the patella were all successfully press-fit into place. The knee was placed through range of motion at full extension, full flexion, external alignment, stable mediolaterally at 0, 30, 60, and 90 degrees of flexion and the patella tracked centrally and therefore, we proceeded to closure. Wound was thoroughly irrigated. The extensor mechanism was closed with the combination of interrupted #2 Dexon and #2 Quill suture running. The skin was approximated using interrupted 2-0 Dexon. Skin was closed with stephanie. Sterile dressing was then applied. The patient was then transferred supine to the room bed, then taken to the recovery room in good condition. Intraoperatively, there was approximately 75 mL blood loss. No intraoperative transfusions or complications. A second unit of tranexamic acid was given at the time of closure. MD GEORGE Ramos/[facility] / [id number]
[2020-05-29 10:48] LABS: Estimated Glomerular Filt Rate 46
[2020-05-29 11:35] LABS: Glucose, Whole Blood 137 mg/dL (60-115)
[2020-05-29] MEDS: 0.9 % Sodium Chloride Flush 3 ML SYRINGE IVFLUSH ×2 (16:21→21:56)
--- NOTE | 2020-05-29 16:41 | P.PNIM_ITS ---
Subjective Subjective Date of Service: 05/30/20 Interval History: copd, diabetes Review of Systems Patient still has knee area pain operation area, denies any chest pain or shortness of breath . Cardiovascular Denies any chest pain or palpitations Respiratory no cough Gastrointestinal Denies any abdominal pain or nausea vomiting Physical Exam Vital Signs: Vital Signs: Last Vital Signs Temp 97.5 F 05/29/20 11:07 Pulse 83 05/29/20 13:30 Resp 18 05/29/20 11:07 BP 126/56 L 05/29/20 13:30 Pulse Ox 96 05/29/20 13:30 Body Mass Index 38.5 Physical exam: Cvs: rrr, [id number] , no murmur res: clear to auscultation ,no rhonchii or wheezing abd: no rebound or guarding ,nt, bs present. ext : left knee operation area : still has pain ,pulses present , no cyanosis neuro: axo3 , nonfocal. Objective Data Current Medications Generic Name Dose Route Start Last Admin Trade Name Freq PRN Reason Stop Dose Admin Acetaminophen 650 mg 05/28/20 10:45 05/29/20 16:19 Acetaminophen 325 Mg Tablet PO 650 mg Q6H RANGEL Administration Albuterol Sulfate 2 puff 05/28/20 18:42 Albuterol Sulfate 90 Mcg 8 Gm Inhaler INHALE Q4H PRN Shortness Of Breath Aspirin 325 mg 05/29/20 22:00 Aspirin 325 Mg Tablet PO BID RANGEL Atorvastatin Calcium 80 mg 05/29/20 09:00 05/29/20 08:31 Atorvastatin Calcium 80 Mg Tablet PO 80 mg DAILY RANGEL Administration Bupropion HCl 150 mg 05/29/20 09:00 05/29/20 08:46 Bupropion Hcl Xl 150 Mg Tab.Er.24h PO Not Given DAILY RANGEL Docusate Sodium 100 mg 05/28/20 21:00 05/29/20 08:31 Docusate Sodium 100 Mg Capsule PO 100 mg BID RANGEL Administration Fentanyl 25 mcg 05/28/20 09:33 Fentanyl Citrate/Pf 100 Mcg/2 Ml Vial IVPUSH Q5M PRN Pain, Moderate (Pain Scale 4-6 Fluticasone Propionate 1 spray 05/29/20 09:00 05/29/20 08:58 Fluticasone Propionate Nasal 16 Gm [place] NOSTRIL-B 1 spray DAILY RANGEL Administration Fluticasone/Vilanterol 1 puff 05/29/20 08:00 05/29/20 10:18 Fluticasone/Vilanterol 100/25 Blst.W.Dev INHALE Not Given RDAILY [facility] Gabapentin 300 mg 05/29/20 09:00 05/29/20 16:19 Gabapentin 300 Mg Capsule PO 300 mg BID@ [facility]ANGEL Administration Gabapentin 600 mg 05/28/20 21:00 05/28/20 21:43 Gabapentin 300 Mg Capsule PO 600 mg BEDTIME [facility] Administration Hydromorphone HCl 0.25 mg 05/28/20 09:33 Hydromorphone Hcl 0.5 Mg/0.5 Ml Syringe IVPUSH Q5M PRN Pain, Severe (Pain Scale 7-10) Hydromorphone HCl 2 mg 05/28/20 13:22 05/29/20 12:53 Hydromorphone Hcl 2 Mg Tablet PO 2 mg Q4H PRN Administration Pain, Moderate (Pain Scale 4-6 Insulin Glargine 14 unit 05/29/20 09:00 05/29/20 08:32 Insulin Glargine,Hum.Rec.Anlog 100 Unit/Ml 10 Ml Vial SUBCUT 14 unit DAILY [facility] Administration Insulin Human Lispro 0 unit 05/28/20 21:00 05/29/20 11:29 Insulin Lispro 100 Unit/Ml 3 Ml Vial SUBCUT Not Given QIDACHS [facility] Protocol Ketorolac Tromethamine 15 mg 05/28/20 10:45 05/29/20 16:19 Ketorolac Tromethamine 15 Mg/Ml Vial IVPUSH 15 mg Q6H [facility] Administration Lidocaine 1 patch 05/29/20 09:00 Lidocaine 4 % Patch Adh..Patch TRANSDERMA DAILY PRN Pain, Mild (Pain Scale 1-3) Metformin HCl 500 mg 05/29/20 09:00 05/29/20 08:31 Metformin Hcl 500 Mg Tablet PO 500 mg DAILY [facility] Administration Mirabegron 25 mg 05/29/20 09:00 05/29/20 08:31 Mirabegron 25 Mg Tab.Er.24h PO 25 mg DAILY RANGEL Administration Montelukast Sodium 10 mg 05/28/20 21:00 05/28/20 21:43 Montelukast Sodium 10 Mg Tablet PO Not Given BEDTIME [facility] Morphine Sulfate 2 mg 05/28/20 10:45 05/28/20 16:53 Morphine Sulfate 2 Mg/Ml Cartridge IVPUSH 2 mg Q2H PRN Administration Pain, Severe (Pain Scale 7-10) Naloxone HCl 0.2 mg 05/28/20 10:45 Naloxone Hcl 0.4 Mg/Ml Vial IVPUSH Q2M PRN Excessive sedation or RR < 8 Ondansetron HCl 4 mg 05/28/20 09:33 05/28/20 09:38 Ondansetron Hcl 4 Mg/2 Ml Vial IVPUSH 4 mg ONCE PRN Administration Nausea and Vomiting Ondansetron HCl 4 mg 05/28/20 10:45 Ondansetron Hcl 4 Mg/2 Ml Vial IVPUSH Q8H PRN Nausea and Vomiting Pharmacy Consult 1 each 05/28/20 16:42 Consult Rx Perform Med Rec MISCELLANE ONCE PRN Consult order Ropinirole HCl 1 mg 05/28/20 21:00 05/29/20 08:31 Ropinirole Hcl 1 Mg Tablet PO 1 mg BID RANGEL Administration Sertraline HCl 50 mg 05/29/20 09:00 05/29/20 08:46 Sertraline Hcl 50 Mg Tablet PO Not Given DAILY RANGEL Sodium Chloride 3 ml 05/28/20 16:00 05/29/20 16:21 0.9 % Sodium Chloride Flush 3 Ml Syringe IVFLUSH 3 ml QSHIFT RANGEL Administration Trazodone HCl 250 mg 05/28/20 21:00 05/28/20 21:42 Trazodone Hcl 50 Mg Tablet PO 250 mg BEDTIME RANGEL Administration Labs CBC & Chem 7: 05/29/20 06:34 Assessment and Plan (1) Diabetes 1.5, managed as type 1: Status: Acute (2) Osteoarthritis of left knee: Status: Acute Assessment and Plan: 70 year old women status post left knee arthroplasty 1.Left knee arthroplasty. Management as per surgical team, Continue pain management. 2.Diabetes.: Fingersticks with sliding scale -continue glargine , metformin and Sliding scale, ADA diet 3.HLD. Continue statin. 4.Depression. Continue sertraline . 5. copd:continue flucotisone/vilantrol, singulair
[2020-05-29 17:04] LABS: Glucose, Whole Blood 136 mg/dL (60-115)
[2020-05-29 20:40] LABS: Glucose, Whole Blood 164 mg/dL (60-115)
[2020-05-29] MEDS: Insulin Lispro 100 UNIT/ML 3 ML VIAL SUBCUT (21:54)
[2020-05-29] MEDS: traZODone HCL 50 MG TABLET 250 MG PO (21:55)
[2020-05-29] MEDS: Aspirin 325 MG TABLET PO (21:55)
[2020-05-29] MEDS: Gabapentin 300 MG CAPSULE 600 MG PO (21:55)
[2020-05-29] MEDS: Montelukast Sodium 10 MG TABLET PO (21:55)
[2020-05-30] VITALS (9 sets, daily range): BP systolic 103–159; BP diastolic 54–68; PULSE 74–89; RESP 16–18; TEMP 35.5–36.4; O2SAT 90–99
[2020-05-30] MEDS: HYDROmorphone HCl 2 MG TABLET PO ×5 (01:00→19:12)
[2020-05-30] MEDS: Ketorolac Tromethamine 15 MG/ML VIAL IVPUSH ×4 (04:49→22:02)
[2020-05-30] MEDS: Acetaminophen 325 MG TABLET 650 MG PO ×4 (04:49→22:00)
[2020-05-30 08:16] LABS: Glucose, Whole Blood 136 mg/dL (60-115)
[2020-05-30] MEDS: Aspirin 325 MG TABLET PO ×2 (09:14→22:00)
[2020-05-30] MEDS: Mirabegron 25 MG TAB.ER.24H PO (09:14)
[2020-05-30] MEDS: Gabapentin 300 MG CAPSULE PO ×2 (09:14→14:56)
[2020-05-30] MEDS: metFORMIN HCl 500 MG TABLET PO (09:14)
[2020-05-30] MEDS: rOPINIRole HCL 1 MG TABLET PO ×2 (09:14→22:01)
[2020-05-30] MEDS: Atorvastatin Calcium 80 MG TABLET PO (09:14)
[2020-05-30] MEDS: Insulin Glargine,Hum.rec.anlog 100 UNIT/ML 10 ML VIAL 14 UNIT SUBCUT (09:15)
[2020-05-30] MEDS: 0.9 % Sodium Chloride Flush 3 ML SYRINGE IVFLUSH ×3 (09:19→22:02)
--- NOTE | 2020-05-30 09:58 | MHC.CM.PN ---
nurse health care aide note , electronic medica record reviewed physical thearpy is recomending home with physical thearpy , plan of care assess pain management , monitor labs daily pt/t services discharge plan anticipate discharge tomorrow 05/31/2020 home with new referral to the [facility] for [facility] physical theap[facility] (patient luis f be going home on asa) pcp patient to [facility] for fllow up post hospitla discharge rthopedic follow up per discharge instructions transprtation famiy imm was tutu 05/28/2020
--- NOTE | 2020-05-30 10:06 | PM.PNORT ---
Subjective Subjective Interval history: POD 2 s/p LT TKA No overnight events resting in chair, states PT went well she is starting to feel more comfortable walking with walker denies sob, cp, dizziness Physical Exam Vital Signs: Vital Signs: Last Vital Signs Temp 96.8 F 05/30/20 07:47 Pulse 74 05/30/20 08:46 Resp 18 05/30/20 07:47 BP 103/54 L 05/30/20 08:46 Pulse Ox 99 05/30/20 08:46 Body Mass Index 38.5 Const: General: cooperative, healthy appearing and no acute distress Resp: Effort & Inspection: normal respiratory effort and able to speak in complete sentences Cardio: Rate: regular rate Peripheral pulses: Peripheral pulses 2+ throughout GI: Inspection: Yes normal to inspection Palpation (GI): Soft to palpation Skin: General skin exam: no rashes or lesions noted Extrem: Other: Left knee bandage intact, no erythema mild edema, calf supple non tender. Progress Note: A&P Assessment and plan (1) Status post left knee replacement: Status: Acute Assessment and Plan: Continue pain mgmnt cont dvt ppx cont PT for LT TKA Dispo planning-Pending PT, pain mgmnt Fall Risk Details Current Medications: Current Medications Generic Name Dose Route Start Last Admin Trade Name Freq PRN Reason Stop Dose Admin Acetaminophen 650 mg 05/28/20 10:45 05/30/20 09:14 Acetaminophen 325 Mg Tablet PO 650 mg Q6H RANGEL Administration Albuterol Sulfate 2 puff 05/28/20 18:42 Albuterol Sulfate 90 Mcg 8 Gm Inhaler INHALE Q4H PRN Shortness Of Breath Aspirin 325 mg 05/29/20 22:00 05/30/20 09:14 Aspirin 325 Mg Tablet PO 325 mg BID RANGEL Administration Atorvastatin Calcium 80 mg 05/29/20 09:00 05/30/20 09:14 Atorvastatin Calcium 80 Mg Tablet PO 80 mg DAILY [facility]ANGEL Administration Bupropion HCl 150 mg 05/29/20 09:00 05/30/20 09:18 Bupropion Hcl Xl 150 Mg Tab.Er.24h PO Not Given DAILY RANGEL Docusate Sodium 100 mg 05/28/20 21:00 05/30/20 09:18 Docusate Sodium 100 Mg Capsule PO Not Given BID RANGEL Fentanyl 25 mcg 05/28/20 09:33 Fentanyl Citrate/Pf 100 Mcg/2 Ml Vial IVPUSH Q5M PRN Pain, Moderate (Pain Scale 4-6 Fluticasone Propionate 1 spray 05/29/20 09:00 05/30/20 09:20 Fluticasone Propionate Nasal 16 Gm [place] NOSTRIL-B Not Given DAILY [facility] Fluticasone/Vilanterol 1 puff 05/29/20 08:00 05/30/20 09:19 Fluticasone/Vilanterol 100/25 Blst.W.Dev INHALE Not Given RDAILY [facility] Gabapentin 300 mg 05/29/20 09:00 05/30/20 09:14 Gabapentin 300 Mg Capsule PO 300 mg BID@ [facility] Administration Gabapentin 600 mg 05/28/20 21:00 05/29/20 21:55 Gabapentin 300 Mg Capsule PO 600 mg BEDTIME [facility] Administration Hydromorphone HCl 0.25 mg 05/28/20 09:33 Hydromorphone Hcl 0.5 Mg/0.5 Ml Syringe IVPUSH Q5M PRN Pain, Severe (Pain Scale 7-10) Hydromorphone HCl 2 mg 05/28/20 13:22 05/30/20 06:13 Hydromorphone Hcl 2 Mg Tablet PO 2 mg Q4H PRN Administration Pain, Moderate (Pain Scale 4-6 Insulin Glargine 14 unit 05/29/20 09:00 05/30/20 09:15 Insulin Glargine,Hum.Rec.Anlog 100 Unit/Ml 10 Ml Vial SUBCUT 14 unit DAILY [facility] Administration Insulin Human Lispro 0 unit 05/28/20 21:00 05/30/20 08:02 Insulin Lispro 100 Unit/Ml 3 Ml Vial SUBCUT Not Given QIDACHS [facility] Protocol Ketorolac Tromethamine 15 mg 05/28/20 10:45 05/30/20 09:14 Ketorolac Tromethamine 15 Mg/Ml Vial IVPUSH 15 mg Q6H [facility] Administration Lidocaine 1 patch 05/29/20 09:00 Lidocaine 4 % Patch Adh..Patch TRANSDERMA DAILY PRN Pain, Mild (Pain Scale 1-3) Metformin HCl 500 mg 05/29/20 09:00 05/30/20 09:14 Metformin Hcl 500 Mg Tablet PO 500 mg DAILY [facility] Administration Mirabegron 25 mg 05/29/20 09:00 05/30/20 09:14 Mirabegron 25 Mg Tab.Er.24h PO 25 mg DAILY [facility] Administration Montelukast Sodium 10 mg 05/28/20 21:00 05/29/20 21:55 Montelukast Sodium 10 Mg Tablet PO 10 mg BEDTIME [facility]ANGEL Administration Morphine Sulfate 2 mg 05/28/20 10:45 05/28/20 16:53 Morphine Sulfate 2 Mg/Ml Cartridge IVPUSH 2 mg Q2H PRN Administration Pain, Severe (Pain Scale 7-10) Naloxone HCl 0.2 mg 05/28/20 10:45 Naloxone Hcl 0.4 Mg/Ml Vial IVPUSH Q2M PRN Excessive sedation or RR < 8 Ondansetron HCl 4 mg 05/28/20 09:33 05/28/20 09:38 Ondansetron Hcl 4 Mg/2 Ml Vial IVPUSH 4 mg ONCE PRN Administration Nausea and Vomiting Ondansetron HCl 4 mg 05/28/20 10:45 Ondansetron Hcl 4 Mg/2 Ml Vial IVPUSH Q8H PRN Nausea and Vomiting Pharmacy Consult 1 each 05/28/20 16:42 Consult Rx Perform Med Rec MISCELLANE ONCE PRN Consult order Ropinirole HCl 1 mg 05/28/20 21:00 05/30/20 09:14 Ropinirole Hcl 1 Mg Tablet PO 1 mg BID RANGEL Administration Sertraline HCl 50 mg 05/29/20 09:00 05/30/20 09:20 Sertraline Hcl 50 Mg Tablet PO Not Given DAILY [facility]ANGEL Sodium Chloride 3 ml 05/28/20 16:00 05/30/20 09:19 0.9 % Sodium Chloride Flush 3 Ml Syringe IVFLUSH 3 ml QSHIFT RANGEL Administration Trazodone HCl 250 mg 05/28/20 21:00 05/29/20 21:55 Trazodone Hcl 50 Mg Tablet PO 250 mg BEDTIME RANGEL Administration Time Spent With Patient Time: Total time spent is greater than 50% in coordination of care (as documented) at patient's floor/unit and/or counseling patient: Time with patient: 15 - 24 minutes Procedures Abscess I/D Date of Service: 05/30/20
[2020-05-30 11:42] LABS: Glucose, Whole Blood 132 mg/dL (60-115)
--- NOTE | 2020-05-30 14:19 | HO.PM.IMPN ---
Subjective Subjective Date of Service: 05/30/20 Interval History: copd , dm Review of Systems Denies any chest pain or shortness of breath or abdominal pain or fever or chills. No urinary complaints. Physical Exam Vital Signs: Vital Signs: Last Vital Signs Temp 96.9 F 05/30/20 11:28 Pulse 82 05/30/20 11:28 Resp 18 05/30/20 11:28 BP 129/63 05/30/20 11:28 Pulse Ox 94 05/30/20 11:28 Body Mass Index 38.5 Physical exam: Heent : neck supple eyes: no erythema or discharge. Cvs: rrr, [id number] , no murmur. res: clear to auscultation ,no rhonchii or wheezing abd: no rebound or guarding ,nt, bs present. ext pulses present , no cyanosis neuro: axo3 , nonfocal. Objective Data Current Medications Generic Name Dose Route Start Last Admin Trade Name Freq PRN Reason Stop Dose Admin Acetaminophen 650 mg 05/28/20 10:45 05/30/20 09:14 Acetaminophen 325 Mg Tablet PO 650 mg Q6H RANGEL Administration Albuterol Sulfate 2 puff 05/28/20 18:42 Albuterol Sulfate 90 Mcg 8 Gm Inhaler INHALE Q4H PRN Shortness Of Breath Aspirin 325 mg 05/29/20 22:00 05/30/20 09:14 Aspirin 325 Mg Tablet PO 325 mg BID RANGEL Administration Atorvastatin Calcium 80 mg 05/29/20 09:00 05/30/20 09:14 Atorvastatin Calcium 80 Mg Tablet PO 80 mg DAILY RANGEL Administration Bupropion HCl 150 mg 05/29/20 09:00 05/30/20 09:18 Bupropion Hcl Xl 150 Mg Tab.Er.24h PO Not Given DAILY RANGEL Docusate Sodium 100 mg 05/28/20 21:00 05/30/20 09:18 Docusate Sodium 100 Mg Capsule PO Not Given BID [facility] Fentanyl 25 mcg 05/28/20 09:33 Fentanyl Citrate/Pf 100 Mcg/2 Ml Vial IVPUSH Q5M PRN Pain, Moderate (Pain Scale 4-6 Fluticasone Propionate 1 spray 05/29/20 09:00 05/30/20 09:20 Fluticasone Propionate Nasal 16 Gm Gibson NOSTRIL-B Not Given DAILY [facility] Fluticasone/Vilanterol 1 puff 05/29/20 08:00 05/30/20 09:19 Fluticasone/Vilanterol 100/25 Blst.W.Dev INHALE Not Given RDAILY [facility] Gabapentin 300 mg 05/29/20 09:00 05/30/20 09:14 Gabapentin 300 Mg Capsule PO 300 mg BID@ RANGEL Administration Gabapentin 600 mg 05/28/20 21:00 05/29/20 21:55 Gabapentin 300 Mg Capsule PO 600 mg BEDTIME RANGEL Administration Hydromorphone HCl 0.25 mg 05/28/20 09:33 Hydromorphone Hcl 0.5 Mg/0.5 Ml Syringe IVPUSH Q5M PRN Pain, Severe (Pain Scale 7-10) Hydromorphone HCl 2 mg 05/28/20 13:22 05/30/20 10:28 Hydromorphone Hcl 2 Mg Tablet PO 2 mg Q4H PRN Administration Pain, Moderate (Pain Scale 4-6 Insulin Glargine 14 unit 05/29/20 09:00 05/30/20 09:15 Insulin Glargine,Hum.Rec.Anlog 100 Unit/Ml 10 Ml Vial SUBCUT 14 unit DAILY RANGEL Administration Insulin Human Lispro 0 unit 05/28/20 21:00 05/30/20 12:21 Insulin Lispro 100 Unit/Ml 3 Ml Vial SUBCUT Not Given QIDACHS [facility] Protocol Ketorolac Tromethamine 15 mg 05/28/20 10:45 05/30/20 09:14 Ketorolac Tromethamine 15 Mg/Ml Vial IVPUSH 15 mg Q6H RANGEL Administration Lidocaine 1 patch 05/29/20 09:00 Lidocaine 4 % Patch Adh..Patch TRANSDERMA DAILY PRN Pain, Mild (Pain Scale 1-3) Metformin HCl 500 mg 05/29/20 09:00 05/30/20 09:14 Metformin Hcl 500 Mg Tablet PO 500 mg DAILY RANGEL Administration Mirabegron 25 mg 05/29/20 09:00 05/30/20 09:14 Mirabegron 25 Mg Tab.Er.24h PO 25 mg DAILY RANGEL Administration Montelukast Sodium 10 mg 05/28/20 21:00 05/29/20 21:55 Montelukast Sodium 10 Mg Tablet PO 10 mg BEDTIME RANGEL Administration Morphine Sulfate 2 mg 05/28/20 10:45 05/28/20 16:53 Morphine Sulfate 2 Mg/Ml Cartridge IVPUSH 2 mg Q2H PRN Administration Pain, Severe (Pain Scale 7-10) Naloxone HCl 0.2 mg 05/28/20 10:45 Naloxone Hcl 0.4 Mg/Ml Vial IVPUSH Q2M PRN Excessive sedation or RR < 8 Ondansetron HCl 4 mg 05/28/20 09:33 05/28/20 09:38 Ondansetron Hcl 4 Mg/2 Ml Vial IVPUSH 4 mg ONCE PRN Administration Nausea and Vomiting Ondansetron HCl 4 mg 05/28/20 10:45 Ondansetron Hcl 4 Mg/2 Ml Vial IVPUSH Q8H PRN Nausea and Vomiting Pharmacy Consult 1 each 05/28/20 16:42 Consult Rx Perform Med Rec MISCELLANE ONCE PRN Consult order Ropinirole HCl 1 mg 05/28/20 21:00 05/30/20 09:14 Ropinirole Hcl 1 Mg Tablet PO 1 mg BID RANGEL Administration Sertraline HCl 50 mg 05/29/20 09:00 05/30/20 09:20 Sertraline Hcl 50 Mg Tablet PO Not Given DAILY RANGEL Sodium Chloride 3 ml 05/28/20 16:00 05/30/20 09:19 0.9 % Sodium Chloride Flush 3 Ml Syringe IVFLUSH 3 ml QSHIFT RANGEL Administration Trazodone HCl 250 mg 05/28/20 21:00 05/29/20 21:55 Trazodone Hcl 50 Mg Tablet PO 250 mg BEDTIME RANGEL Administration Labs CBC & Chem 7: 05/29/20 06:34 Assessment and Plan (1) Diabetes 1.5, managed as type 1: Status: Acute Assessment and Plan: 70 year old women status post left knee arthroplasty 1.Left knee arthroplasty. Management as per surgical team, Continue pain management. postop anemia mild leucocytosis seems reactive yesterday , patient is asymptomatic. 2.Diabetes.: fs running 130-170 Fingersticks with sliding scale -continue glargine , metformin and Sliding scale, ADA diet 3.HLD. Continue statin. 4.Depression. Continue sertraline , wellbutrin. 5. copd:continue flucotisone/vilantrol, singulair
[2020-05-30 16:46] LABS: Glucose, Whole Blood 158 mg/dL (60-115)
[2020-05-30] MEDS: Insulin Lispro 100 UNIT/ML 3 ML VIAL SUBCUT ×2 (16:51→22:02)
[2020-05-30 20:59] LABS: Glucose, Whole Blood 160 mg/dL (60-115)
[2020-05-30] MEDS: Gabapentin 300 MG CAPSULE 600 MG PO (22:01)
[2020-05-30] MEDS: traZODone HCL 50 MG TABLET 250 MG PO (22:01)
[2020-05-30] MEDS: Docusate Sodium 100 MG CAPSULE PO (22:01)
[2020-05-30] MEDS: Montelukast Sodium 10 MG TABLET PO (22:01)
[2020-05-31] MEDS: HYDROmorphone HCl 2 MG TABLET PO ×2 (02:19→08:01)
[2020-05-31 03:38] VITALS: BP 145/61; PULSE 79; RESP 16; TEMP 36; O2SAT 95
[2020-05-31] MEDS: Ketorolac Tromethamine 15 MG/ML VIAL IVPUSH ×2 (04:14→10:37)
[2020-05-31] MEDS: Acetaminophen 325 MG TABLET 650 MG PO ×2 (04:14→10:37)
[2020-05-31 07:30] VITALS: BP 134/50; PULSE 77; RESP 18; TEMP 35.8; O2SAT 97
[2020-05-31 07:36] LABS: Glucose, Whole Blood 122 mg/dL (60-115)
[2020-05-31] MEDS: 0.9 % Sodium Chloride Flush 3 ML SYRINGE IVFLUSH (08:02)
--- NOTE | 2020-05-31 08:32 | P.DS_ITS ---
DS: Providers Provider Date of admission: 05/28/20 05:40 Primary care physician: Shelbi Perez MD Consults: 05/28/20 10:45 Consult to Hospitalist Routine Consulting Provider: Hospitalist Reason for consultation: medical issues Has provider been notified: No DS: Diagnosis Discharge Diagnosis (1) Status post left knee replacement: Status: Acute Problem details: Ms. Fraga is a 70-year-old female who presented to our office with ongoing right knee pain. She had failed all conservative measures and continued to have difficulty with daily activities therefore she consented to move forward with right total knee arthroplasty. DS: Medications Discharge Medications Home Medications: Home Medications Medication Instructions Recorded Confirmed blood sugar diagnostic #10 ea 04/25/20 05/16/20 bupropion HCl 150 mg 24 hr tablet, 150 mg PO QAM 04/25/20 05/16/20 extended release fluticasone propionate 50 1 spray INTRANASAL DAILY 04/25/20 05/16/20 mcg/actuation nasal spray,suspension gabapentin 300 mg capsule 300 mg PO BID@09,16 04/25/20 05/28/20 lancets 28 gauge #100 ea 04/25/20 05/16/20 mirabegron 25 mg tablet,extended 25 mg PO QAM 04/25/20 05/16/20 release 24 hr oxygen-air delivery systems #1 04/25/20 05/16/20 pen needle, diabetic 31 gauge x #50 ea 04/25/20 05/16/2009/25 ropinirole 1 mg tablet 1 mg PO BID 04/25/20 05/16/20 trazodone 100 mg tablet 250 mg PO BEDTIME 04/25/20 05/16/20 Levemir FlexTouch U-100 Insuln 20 unit SUBCUT QAM 05/14/20 05/16/20 albuterol sulfate [Ventolin HFA] 2 puff INHALATION Q4H PRN 05/14/20 05/28/20 metformin 500 mg PO QAM 05/14/20 05/16/20 lidocaine 5 % topical patch 1 patch TOPICAL DAILY 05/16/20 05/28/20 aspirin 81 mg tablet,delayed 81 mg PO DAILY 05/23/20 05/28/20 release fluticasone propionate 115 2 puff INHALATION BID 05/23/20 05/28/20 mcg-salmeterol 21 mcg/actuation HFA inhaler gabapentin 300 mg capsule 600 mg PO BEDTIME 05/23/20 05/28/20 montelukast 10 mg tablet 10 mg PO BEDTIME 05/23/20 05/28/20 sertraline 50 mg tablet 50 mg PO DAILY 05/23/20 05/28/20 Previous Rx's Medication Instructions Recorded atorvastatin 80 mg tablet 80 mg PO DAILY #90 tab 05/08/20 acetaminophen 650 mg PO Q6H 30 Days #240 tab 05/31/20 aspirin 325 mg PO BID 14 Days #28 tab 05/31/20 docusate sodium 100 mg PO BID 30 Days #60 cap 05/31/20 hydromorphone 2 mg PO Q4H PRN 7 Days #42 tab 05/31/20 DS: Summary Hospital Course Hospital Course: Ms. fraga underwent a successful right total knee arthroplasty she was transferred to PACU and then to the floor where she recovered during her stay her vitals were stable afebrile at 96.5 and her labs are unremarkable hemoglobin 10.3 hematocrit 33.4. Postop day 1 she was started on aspirin 325 mg p.o. b.i.d. and she received physical therapy services twice a day prior to discharge her Aquacel dressing was changed incision clean dry and intact oxygen applied and the plan is to be discharged home with VNA services. Time spent discussing smoking cessation with patient: more than 10 minutes Status at Discharge Functional status at discharge: uses cane/walker Time Spent with Patient Time attestation: Total time spent providing and/or coordinating discharge services: Discharge coordination time: Greater than 30 minutes Physical Exam Vital Signs: Vital Signs: Last Vital Signs Temp 96.5 F L 05/31/20 07:30 Pulse 77 05/31/20 07:30 Resp 18 05/31/20 07:30 BP 134/50 L 05/31/20 07:30 Pulse Ox 97 05/31/20 07:30 Body Mass Index 38.5 Const: General: cooperative, healthy appearing and no acute distress Resp: Effort & Inspection: normal respiratory effort and able to speak in complete sentences Cardio: Rate: regular rate Peripheral pulses: Peripheral pulses 2+ throughout GI: Inspection: Yes normal to inspection Palpation (GI): Soft to palpation Skin: General skin exam: no rashes or lesions noted Extrem: Other: Right knee incision clean dry and intact. No erythema or drainage. Calf supple nontender. DS: Data Data Completed and Pending Pending studies at discharge: Pending at discharge 05/28/20 09:00 Surgical [PTH] Routine Labs on day of discharge: 05/14/20 14:40 MRSA Nasal Screen Routine 05/23/20 15:11 Type and Screen Routine 05/28/20 05:38 Albuterol Sulfate (0.083%) [Ventolin (0.083%)] 2.5 mg INHALE ONCE PRN Gabapentin [Neurontin] 600 mg PO PREOP ONE ceFAZolin Sodium/Dextrose,Iso [Ancef] 2 gm in 50 ml IV PREOP 05/28/20 05:38 Glucose, blood poc AM PRE-OP Providone-Iodine Solution 5% nasal swab .Both Nares x2 pre-op Surgical prep, hair removal PREOP 05/28/20 05:40 COVID-19 ID NOW ([facility]) Stat 05/28/20 05:45 Lactated Ringers [Lr] 1,000 ml IVCONT 100 mls/hr 05/28/20 06:33 Glucose, Whole Blood Routine 05/28/20 06:40 Gabapentin [Neurontin] 300 mg .ROUTE .STK-MED ONE ceFAZolin Sodium/Dextrose,Iso [Ancef] 2 gm in 50 ml .ROUTE As directed 05/28/20 07:11 Bupivacaine MPF 0.5 % [Sensorcaine MPF 0.5% 30 ML] 30 ml .ROUTE .STK-MED ONE Lidocaine HCl 2 % MPF [Xylocaine 2 % MPF] 5 ml .ROUTE .STK-MED ONE Midazolam HCl/PF [Versed] 2 mg .ROUTE .STK-MED ONE 05/28/20 07:15 Vital Signs Q1H Albuterol Sulfate (0.083%) [Ventolin (0.083%)] 2.5 mg INHALE ONCE PRN ondansetron HCL [Zofran] 4 mg IVPUSH ONCE PRN 05/28/20 07:46 Tranexamic Acid [Cyklokapron] 1,000 mg .ROUTE .STK-MED ONE 05/28/20 08:03 Ketamine HCl/NS 50 mg IVPUSH .STK-MED ONE 05/28/20 08:32 Tranexamic Acid [Cyklokapron] 1,000 mg .ROUTE .STK-MED ONE ePHEDrine sulfate 50 mg .ROUTE .STK-MED ONE 05/28/20 09:11 Transfer Order Routine 05/28/20 09:33 Continuous pulse oximetry CONT Vital Signs Q1H Vital Signs Q5MIN oxyCODONE HCl Immed Release [Roxicodone] 5 mg PO ONCE PRN 05/28/20 Breakfast Regular Diet 05/28/20 10:45 Straight Urinary Catheterization NEEDED 05/28/20 12:00 oxyCODONE HCl Immed Release [Roxicodone] 10 mg PO Q6H 05/28/20 13:45 ceFAZolin Sodium/Dextrose,Iso [Ancef] 2 gm in 50 ml IV ONCE@1345 05/28/20 21:16 Glucose, Whole Blood Routine 05/29/20 06:34 Hemoglobin and Hematocrit DAILY@0600 05/29/20 07:00 XR knee LT 2V Routine 05/29/20 08:13 Glucose, Whole Blood Routine 05/29/20 10:21 Creatinine Stat 05/29/20 11:11 Glucose, Whole Blood Routine 05/29/20 17:00 Glucose, Whole Blood Routine 05/29/20 20:36 Glucose, Whole Blood Routine 05/30/20 07:45 Glucose, Whole Blood Routine 05/30/20 11:27 Glucose, Whole Blood Routine 05/30/20 16:38 Glucose, Whole Blood Routine 05/30/20 20:53 Glucose, Whole Blood Routine 05/31/20 07:23 Glucose, Whole Blood Routine Laboratory Last Values Hgb 10.3 g/dl (12.0-16.0) L D 05/29/20 06:34 Hct 33.4 % (37-47) L 05/29/20 06:34 Creatinine 1.16 mg/dL (0.5-1.4) 05/29/20 10:21 Estim Creat Clear Calc 45.0 05/29/20 10:21 Estimated GFR 46 05/29/20 10:21 POC Glucose 122 mg/dL (60-115) H 05/31/20 07:23 Nasal Screen MRSA (PCR) NEGATIVE (Negative) 05/14/20 14:40 Nasal S. aureus Screen NEGATIVE (Negative) 05/14/20 14:40 Nasal MRSA/S.aureus Interp SEE NOTE 05/14/20 14:40 COVID-19 PCR Cancelled 05/28/20 05:40 COVID-19 (JESSIKA) Negative (Negative) 05/28/20 05:40 COVID-19 Clin Com See Note 05/28/20 05:40 Blood Type A Positive 05/23/20 15:11 Antibody Screen NEGATIVE 05/23/20 15:11 Discharge Plan Discharge Patient Disposition: Home Health Service Referrals: Kim Quinn PA-C [Physician [facility] Molder] - (06/13/20 12:30) Discharge Medications: New acetaminophen 325 mg Tablet 650 mg PO Q6H 30 Days Qty: 240 RF: 0 aspirin 325 mg Tablet 325 mg PO BID 14 Days Qty: 28 RF: 0 hydromorphone 2 mg Tablet 2 mg PO Q4H PRN (Reason: Pain, Moderate (Pain Scale 4-6) 7 Days Qty: 42 RF: 0 docusate sodium 100 mg Capsule 100 mg PO BID 30 Days Qty: 60 RF: 0 Continued atorvastatin 80 mg tablet 80 mg PO DAILY Qty: 90 RF: 0 Levemir FlexTouch U-100 Insuln 100 unit/mL (3 mL) insulin pen 20 unit subcut QAM RF: 0 metformin 500 mg tablet 500 mg PO QAM RF: 0 albuterol sulfate [Ventolin HFA] 90 mcg/actuation Hfa Aerosol Inhaler 2 puff INHALATION Q4H PRN (Reason: Shortness Of Breath) RF: 0 sertraline 50 mg tablet 50 mg PO DAILY RF: 0 lidocaine 5 % adhesive patch,medicated 1 patch topical DAILY RF: 0 gabapentin 300 mg capsule 300 mg PO BID@16 RF: 0 trazodone 100 mg tablet 250 mg PO BEDTIME RF: 0 (DME) blood sugar diagnostic Strip See Rx Instructions ea Not Applicable TID Qty: 10 RF: 0 mirabegron 25 mg tablet extended release 24 hr 25 mg PO QAM RF: 0 fluticasone propionate 50 mcg/actuation spray,suspension 1 spray intranasal DAILY RF: 0 bupropion HCl 150 mg tablet extended release 24 hr 150 mg PO QAM RF: 0 (DME) lancets 28 gauge misc See Rx Instructions ea topical TID Qty: 100 RF: 0 ropinirole 1 mg tablet 1 mg PO BID RF: 0 (DME) pen needle, diabetic 31 gauge x 3/16 needle See Rx Instructions ea subcut TID Qty: 50 RF: 0 (DME) oxygen-air delivery systems Device See Rx Instructions .ROUTE .MEDSUPPLY Qty: 1 RF: 0 Advair HFA 115-21 mcg/actuation HFA aerosol inhaler 2 puff inhalation BID RF: 0 montelukast 10 mg tablet 10 mg PO BEDTIME RF: 0 gabapentin 300 mg capsule 600 mg PO BEDTIME RF: 0 Held aspirin [Adult Aspirin Regimen] 81 mg tablet,delayed release (DR/EC) 81 mg PO DAILY RF: 0 Hold Instructions: Resume on 06/15/20. Discharge Orders: Discharge Order (Routine); Ordered 05/31/20 Ordered By: Kim Quinn Diet: regular diet Activity on Discharge: Use cane or walker Activity Restrictions/Additional Instructions: * Physical Therapy for ROM 0-120, quad strength, gait training . Use walker for ambulation * Limit stair climbing, No shower, No tub bath, No driving * Continue Aspirin for 2 weeks * Keep Aquacel dressing clean, dry and intact. * Follow up with orthopedics in 2 weeks Visit Report Forms: Patient Portal Discharge page Care Plan Goals: Restore function of right knee Health Concerns: None Plan of Treatment: Physical Therapy Pain management DVT prophylaxis
--- NOTE | 2020-05-31 08:32 | W.MHC.F2F ---
Service Date Service Date: 05/31/20 Reasons for Services Homebound: Leaving the home is medically contraindicated at this time without the asist of a device and/or another person due th the listed conditions above and below. Certification: Based on the above findings, I certify that this patient is confined to the home and needs intermittent shelter care, physical therapy and/or speech therapy, or continues to need occupational therapy. The patient is under my care, and I have initiated the establishment of the plan of care. The patient will be followed by a physician who will periodically review the plan of care.
[2020-05-31 09:09] VITALS: BP 134/50; PULSE 77; O2SAT 97
[2020-05-31] MEDS: Gabapentin 300 MG CAPSULE PO (09:20)
[2020-05-31] MEDS: Mirabegron 25 MG TAB.ER.24H PO (09:20)
[2020-05-31] MEDS: Atorvastatin Calcium 80 MG TABLET PO (09:20)
[2020-05-31] MEDS: buPROPion HCl XL 150 MG TAB.ER.24H PO (09:20)
[2020-05-31] MEDS: Docusate Sodium 100 MG CAPSULE PO (09:20)
[2020-05-31] MEDS: Aspirin 325 MG TABLET PO (09:21)
[2020-05-31] MEDS: metFORMIN HCl 500 MG TABLET PO (09:21)
[2020-05-31] MEDS: Insulin Glargine,Hum.rec.anlog 100 UNIT/ML 10 ML VIAL 14 UNIT SUBCUT (09:22)
[2020-05-31] MEDS: rOPINIRole HCL 1 MG TABLET PO (09:26)
[2020-05-31 11:08] VITALS: BP 118/55; PULSE 89; RESP 18; TEMP 36; O2SAT 96
--- NOTE | 2020-05-31 11:15 | MHC.CM.PN ---
nurse palliative care physician note electronic medical record reviewed along with case discussed with orthopedic surgical pa and staff nurse . met with patient she was aware that she would be dischagred home today and was ready , discharge home with referral to the [facility] for home physical therarpy to start tomorrow pcp dr pastor san patient has scheduled appointment in two weeks orthopedic surgical pa follow up as directed n the discharge instructions transportation family medicare imm updated all paperwork cmpleted and reviewed with patient
[2020-05-31 11:36] LABS: Glucose, Whole Blood 219 mg/dL (60-115)
[2020-05-31] MEDS: Insulin Lispro 100 UNIT/ML 3 ML VIAL SUBCUT (11:51)
--- NOTE | 2020-05-31 17:43 | HO.PM.IMPN ---
Subjective Subjective Date of Service: 05/31/20 Interval History: COPD, diabetes Review of Systems Patient denies any chest pain or shortness of breath or abdominal pain or fever or chills or any urinary complaints. Physical Exam Vital Signs: Vital Signs: Last Vital Signs Temp 96.8 F 05/31/20 11:08 Pulse 89 05/31/20 11:08 Resp 18 05/31/20 11:08 BP 118/55 L 05/31/20 11:08 Pulse Ox 96 05/31/20 11:08 Body Mass Index 38.5 Physical exam: Cvs: rrr, [id number] , no murmur res: clear to auscultation ,no rhonchii or wheezing abd: no rebound or guarding ,nt, bs present. ext pulses present , no cyanosis neuro: axo3 , nonfocal. Objective Data Labs CBC & Chem 7: 05/29/20 06:34 Assessment and Plan (1) Status post left knee replacement: Problem details: Ms. Peacock is a 70-year-old female who presented to our office with ongoing right knee pain. She had failed all conservative measures and continued to have difficulty with daily activities therefore she consented to move forward with right total knee arthroplasty. Status: Acute (2) Diabetes 1.5, managed as type 1: Status: Acute Assessment and Plan: 70 year old women status post left knee arthroplasty 1.Left knee arthroplasty. Management as per surgical team, Continue pain management. postop anemia mild leucocytosis seems reactive . Asymptomatic 2.Diabetes.: fs running 120-160 Fingersticks with sliding scale -continue glargine , metformin and Sliding scale, ADA diet 3.HLD. Continue statin. 4.Depression. Continue sertraline , wellbutrin. 5. copd:continue flucotisone/vilantrol, singulair. Above management discussed with primary team in detail. Will sign off , please call us for any questions.
== END 2020-05-31 14:16 | disposition home health service (06) | DRG 470 ==
LOC: HO.SSSA 05:42 → HO.S3 09:34
PROVIDERS: Nurse Practitioner Acute Care; Orthopaedic Surgery; Admitting Provider Orthopaedic Surgery; PCP Internal Medicine; Visit Provider Orthopaedic Surgery
PROC: 0SRD0JA Replacement of Left Knee Joint with Synthetic Substitute, Uncemented, Open Approach (ICD-10-PCS; CPT 27447; principal; 2020-05-28 07:30)
DX: M17.12 Unilateral primary osteoarthritis, left knee (principal); E78.5 Hyperlipidemia, unspecified; Z20.828 Contact with and (suspected) exposure to other viral communicable diseases; J44.9 Chronic obstructive pulmonary disease, unspecified; E11.9 Type 2 diabetes mellitus without complications; Z79.51 Long term (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 inhaled steroids; Z79.84 Long term (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 oral hypoglycemic drugs; Z79.899 Other long term (current) drug therapy
CPT/HCPCS: 27447; 36415; 73560; 82565; 82947; 85014; 85018; 86850; 86900; 86901; 87635; 87640; 87641; 88304; 88311; 97110; 97116; 97162; 97166; 97535; C1776; J0690; J1885; J2250; J2270; J2405; U0003

== ENCOUNTER → 2020-06-13 12:50 | Outpatient (BNVA) | payer MEDICARE, MEDICAID, SELFPAY | PROVIDERS: PCP Internal Medicine; Referring Provider Internal Medicine; Visit Provider Physician Assistant | DX: Z96.652 Presence of left artificial knee joint (principal); Z77.22 Contact with and (suspected) exposure to environmental tobacco smoke (acute) (chronic) | CPT/HCPCS: 99212 ==

== ENCOUNTER → 2020-07-17 10:36 | Outpatient (BNVA) | payer MEDICARE, MEDICAID, SELFPAY | PROVIDERS: PCP Internal Medicine; Visit Provider Orthopaedic Surgery | DX: Z47.1 Aftercare following joint replacement surgery (principal); Z96.652 Presence of left artificial knee joint | CPT/HCPCS: 99212 ==

== ENCOUNTER → 2020-08-23 09:36 | Outpatient (BNVA) | payer MEDICARE, MEDICAID, SELFPAY | PROVIDERS: PCP Internal Medicine; Visit Provider Internal Medicine | DX: E66.9 Obesity, unspecified (principal); G47.33 Obstructive sleep apnea (adult) (pediatric); J98.4 Other disorders of lung; G47.34 Idiopathic sleep related nonobstructive alveolar hypoventilation | CPT/HCPCS: 99212 ==

== ENCOUNTER 2020-09-25 07:19 | Outpatient (REF) | payer MEDICARE, MEDICAID, SELFPAY ==
--- NOTE | ~2020-09-25 | XR_ITS ---
EXAMINATION: KNEE X-RAY CLINICAL INFORMATION: Left knee replacement. Bilateral knee pain. COMPARISON: Previous x-ray most recent May 2020 TECHNIQUE: Standing AP view of both knees and lateral view of the left knee FINDINGS: Left: There is a left 3 component total knee replacement in satisfactory position. Bone alignment is normal. No acute fracture or dislocation is seen. There is abnormal contour to the medial distal femoral metaphysis that is stable. There are small bony protuberances projecting off the medial distal femoral metaphysis and proximal tibial diaphysis suggestive of small osteochondromas. These appear unchanged. There is a osteophyte at the quadriceps tendon insertion to the patella. There is a joint effusion. Standing AP view of the right knee demonstrates medial femoral tibial joint space narrowing. There are osteochondromas projecting off the medial and lateral distal femoral metaphysis and medial proximal tibial metaphysis. XR/XR knee LT 2V IMPRESSION: Left knee: Satisfactory appearance of left knee replacement. Joint effusion. Probable small medial femoral and tibial osteochondromas. Left knee: Medial femoral tibial joint space narrowing. Distal femoral and proximal tibial osteochondromas.
--- NOTE | ~2020-09-25 | XR_ITS ---
EXAMINATION: KNEE X-RAY CLINICAL INFORMATION: Left knee replacement. Bilateral knee pain. COMPARISON: Previous x-ray most recent May 2020 TECHNIQUE: Standing AP view of both knees and lateral view of the left knee FINDINGS: Left: There is a left 3 component total knee replacement in satisfactory position. Bone alignment is normal. No acute fracture or dislocation is seen. There is abnormal contour to the medial distal femoral metaphysis that is stable. There are small bony protuberances projecting off the medial distal femoral metaphysis and proximal tibial diaphysis suggestive of small osteochondromas. These appear unchanged. There is a osteophyte at the quadriceps tendon insertion to the patella. There is a joint effusion. Standing AP view of the right knee demonstrates medial femoral tibial joint space narrowing. There are osteochondromas projecting off the medial and lateral distal femoral metaphysis and medial proximal tibial metaphysis. XR/XR knee standing BI IMPRESSION: Left knee: Satisfactory appearance of left knee replacement. Joint effusion. Probable small medial femoral and tibial osteochondromas. Left knee: Medial femoral tibial joint space narrowing. Distal femoral and proximal tibial osteochondromas.
== END 2020-09-25 07:20 | disposition home or self-care (01) ==
LOC: HO.HOSX 07:19
PROVIDERS: Visit Provider Orthopaedic Surgery
DX: M25.562 Pain in left knee (principal); M25.561 Pain in right knee; Z96.652 Presence of left artificial knee joint
CPT/HCPCS: 73560; 73565; 99212

== ENCOUNTER 2020-10-09 08:00 | Outpatient (RCR) | payer MEDICARE, MEDICAID, SELFPAY ==
--- NOTE | 2020-07-05 08:00 | MHC.PT.EP ---
[facility] [place] Office [place] Office [place] Office [address] James Stein [address] [phone] F: [phone] F: [phone] F: [phone] F: [phone] Physical Therapy Plan of Care Date of Evaluation: 07/05/20 Date of Surgery: 05/28/2020 Diagnosis: This is a 70 yo female presenting to skilled PT with a script for L TKA. Assessment: This is a 70 yo female presenting to skilled PT with a script for L TKA. Patient comes to the facility after a L TKA on 05/28 performed at [facility]. Patient had home PT until 06/29. Reports that her range was 107 at home. States that she has not been doing her HEP that much but walks (about 50 ft max, 3-4 per day). She reports having a lot of pain described as sharp and achy that is located over the incision and anterior kim. Functionally, she is limited in walking, stairs and transfers (sleeps in a recliner but was doing so at baseline). She needs assist with getting in and out of the bath tub (but showers on own using a shower chair). At [facility] she was occasionally on O2 and uses this sporadically at baseline. She is here today with a FWW but goals are to walk without it. Assessment reveals pain that ranges up to a 9/10 at the worst. She demos decreased gross ROM, gross strength, impaired balance and gait as expected of a TKA. She demos decreased function with stairs, walking and transfers. She has poor pain tolerance at [facility]. She has had PT in the past for multiple other ailments and is familiar with our facility. She is a good/fair candidate for skilled PT 2x/wk for 6wks in order to improve the functional impairments above and return to PLOF safely. Frequency and Duration: The patient will be seen 2x/wk for 6wks Short Term Goals: I in HEP Improved AAROM by at least 10 degs Longterm Goals: Perform stairs with reciprocal gait and without compensatory movements Pain improved to no more than 4/10 at the worst AROM to 115 degs at least and 0 degs extension Improve LEFs by at least 10 points Return to normal gait (from PLOF) without AD Treatment Plan: Modalities to reduce pain, spasms and effusion. Manual therapy to restore motion and function. Therapeutic exercise to improve strength and flexibility. Neuromuscular re-education for posture and balance. Therapeutic activities to return to functional activities of daily living. Electronically signed by: Lizeth Brady PT Please sign and return to therapist. Thank you for your referral.
--- NOTE | 2020-08-07 10:32 | MHC.PT.PR ---
[facility] [place] Office [place] Office [place] Office [address] James Stein [address] [phone] F: [phone] F: [phone] F: [phone] F: [phone] Physical Therapy Progress Note Diagnosis: This is a 70 yo female presenting to skilled PT with a script for L TKA. Date of Surgery: 05/28/2020 Date of Evaluation: 07/05/20 Treatments to Date: 9 Cancellations to Date: 1 No Shows to Date: 0 Subjective: Patient reporting in a lot of pain again, was up at night. Pain Score and Location: 6 anterior knee Objective Measures: PROM 5-105 degs Assessment: As the patient has had 9 visits with PT, progress note is being sent to ortho about general ROM, strength, pain etc. She demos 10-105 degs ROM AA. PT is having a hard time progressing this range as she reports too much pain and will not allow PT to progress her with PROM other than 1-2 reps on occasion. She demos poor quad set and still has a hard time with proper SLR. She is unable to reach full revolutions on the bike. The patient continues to need cuing throughout the session and questionable compliance with HEP as little progress is being made with gross ROM and strength. Additionally, she states that her MD is encouraging her to now use O2 during exercise as she reported that she did not want to before however her tank was empty and she did not bring in any today. She reports pain is limiting her and does not understand why. PT has educated her extensively on importance of HEP, pain management, and anatomy after surgery. I booked her out another 4 wks of PT as she is not functional yet and has not met goals. PT Plan: Continue with PT Frequency and Duration: The patient will be seen 2x/wk 4wks Treatment Plan: Therapeutic Exercise Dynamic Therapeutic Activities Neuromuscular Re-ed Manual Therapies Gait Home Exercise Program Patient Education Hot or Cold Pack Reviewed/ Agreed with Student Documentation: Therapist: Thank you once again for your referral.
== END 2020-10-10 15:32 | disposition other institution (70) ==
LOC: HO.PTCHIC 08:00
PROVIDERS: PCP Internal Medicine; Visit Provider Physician Assistant
DX: Z47.1 Aftercare following joint replacement surgery (principal); Z96.652 Presence of left artificial knee joint
CPT/HCPCS: 97110; 97140; 97162; 97163; 97530

== ENCOUNTER 2020-10-25 16:45 | Emergency (ER) | payer MEDICARE, MEDICAID, SELFPAY ==
[2020-10-25 16:51] VITALS: BP 140/64; PULSE 79; RESP 22; TEMP 36.7; O2SAT 98; BMI 39.2
== END 2020-10-25 20:14 | disposition left against medical advice (07) ==
PROVIDERS: Emergency Provider Emergency Medicine; PCP Internal Medicine
DX: J44.9 Chronic obstructive pulmonary disease, unspecified (principal); Z99.81 Dependence on supplemental oxygen; E11.9 Type 2 diabetes mellitus without complications; K21.9 Gastro-esophageal reflux disease without esophagitis
CPT/HCPCS: 99282; 99283

== ENCOUNTER 2020-11-09 10:54 | Outpatient (REF) | payer MEDICARE, MEDICAID, SELFPAY ==
--- NOTE | ~2020-11-09 | XR_ITS ---
EXAMINATION: XR CHEST CLINICAL INFORMATION: Cough COMPARISON: Previous chest x-ray most recent January 2019 and CTA of the chest January 2019 TECHNIQUE: 2 views of the chest were obtained. FINDINGS: The cardiac and mediastinal contours are stable. There are increased densities seen in both lungs probably related to bilateral costochondral cartilage. The lungs are otherwise clear. There is no pleural effusion or pneumothorax. There are degenerative changes of the spine. XR/XR chest 2V IMPRESSION: No evidence for acute disease in the chest.
[2020-11-09 14:22] LABS: Estimated Average Glucose 137 mg/dL; Hemoglobin A1c % 6.4 %
[2020-11-09 14:29] LABS: Alanine Aminotransferase 10 U/L (0-31); Albumin Level 3.8 g/dL (3.5-5.0); Alkaline Phosphatase 55 U/L (39-117); Anion Gap 16 (12-20); Aspartate Amino Transferase 13 U/L (5-31); Bilirubin Total 0.4 mg/dL (0.0-1.0); Blood Urea Nitrogen 16 mg/dL (9-16); Calcium 9.1 mg/dL (8.4-10.2); Carbon Dioxide 29 mmol/L (22-29); Chloride 100 mmol/L (96-108); Estimated Glomerular Filt Rate 47; Glucose Random 146 mg/dL (60-115); Potassium 4.1 mmol/L (3.3-5.1); Sodium 141 mmol/L (135-145); Total Protein 6.4 g/dL (6.5-8.0)
== END 2020-11-09 10:55 | disposition home or self-care (01) ==
LOC: HO.HMGCX 10:54
PROVIDERS: PCP Internal Medicine; Visit Provider Internal Medicine
DX: E11.40 Type 2 diabetes mellitus with diabetic neuropathy, unspecified (principal); R05 Cough; K21.9 Gastro-esophageal reflux disease without esophagitis; E78.9 Disorder of lipoprotein metabolism, unspecified; G25.81 Restless legs syndrome; Z91.09 Other allergy status, other than to drugs and biological substances
CPT/HCPCS: 36415; 71046; 80053; 83036

== ENCOUNTER 2020-11-17 08:24 | Outpatient (REF) | payer MEDICARE, MEDICAID, SELFPAY ==
--- NOTE | ~2020-11-17 | MM_ITS ---
EXAMINATION: MM SCREENING DIGITAL BREAST TOMOSYNTHESIS, BILATERAL CLINICAL INFORMATION: Screening. Asymptomatic. The lifetime risk of breast cancer based on the Tyrer-Cuzick Model is 3%. COMPARISON: Mammography: 10/01/2018, 03/01/2018, 08/12/2017, 02/06/2017, 01/30/2017 TECHNIQUE: Digital breast tomosynthesis is performed in both the craniocaudal and mediolateral oblique views along with computer-aided detection (CAD). Synthesized 2D images are generated from the tomosynthesis. Additional bilateral MLO views are provided. FINDINGS: There are scattered areas of fibroglandular density (ACR BI-RADS breast composition Category b). There is fibronodular parenchymal pattern with scattered asymmetries in both breasts, overall similar to prior studies. There is no significant mass or architectural abnormality or abnormal calcifications. The axilla and skin contours are unremarkable. No significant changes. MM/MM tomosynthesis screening BI IMPRESSION: No significant changes from prior exams. ASSESSMENT: BI-RADS 2: Benign RECOMMENDATION: Routine annual mammography screening. This patient's information was entered into a reminder system with a target due date for their next mammogram.
== END 2020-11-17 08:25 | disposition home or self-care (01) ==
LOC: HO.MAMMO 08:24
PROVIDERS: PCP Internal Medicine; Visit Provider Internal Medicine
DX: Z12.31 Encounter for screening mammogram for malignant neoplasm of breast (principal)
CPT/HCPCS: 77063; 77067

== ENCOUNTER 2020-12-13 16:03 | Emergency (ER) | payer MEDICARE, MEDICAID, SELFPAY ==
--- NOTE | ~2020-12-13 | XR_ITS ---
EXAMINATION: XR CHEST CLINICAL INFORMATION: Shortness of breath. COMPARISON: 11/09/2020 chest radiographs. TECHNIQUE: Frontal view of the chest was obtained. FINDINGS: No significant abnormality is noted involving the heart, lungs, mediastinum, bony thorax or soft tissues. XR/XR chest 1V IMPRESSION: No acute cardiopulmonary process.
[2020-12-13 16:13] VITALS: BP 150/73; PULSE 86; RESP 16; TEMP 37; O2SAT 97; BMI 39.0
--- NOTE | 2020-12-13 16:20 | ECG_ITS ---
Test Reason : CHEST PAIN Blood Pressure : / mmHG Vent. Rate : 084 BPM Atrial Rate : 084 BPM P-R Int : 164 ms QRS Dur : 084 ms QT Int : 382 ms P-R-T Axes : 049 020 027 degrees QTc Int : 451 ms Normal sinus rhythm with sinus arrhythmia Nonspecific ST abnormality Abnormal ECG When compared with ECG of 25-APR-2020 12:01, No significant change was found Referred By: Cruz Petty Electronically Signed By:Isaías Denise
--- NOTE | 2020-12-13 16:24 | ED.SOB ---
HPI - SOB/Dyspnea General Chief Complaint: Dyspnea Stated Complaint: SOB Time Seen by Provider: 12/13/20 16:15 Source: patient Mode of arrival: EMS Limitations: no limitations History of Present Illness HPI Narrative: pt with History of sleep apnea COPD not on any inhaler oxygen at home noticed increased shortness of breath for last few weeks which is getting worse ,, slight ambulation makes her short of breath feel chest tight no fever no chills no cough no leg swelling patient does have oxygen at home which she used to use before for sleep apnea and she been using it lately ,denies any chest pain Related Data Home Medications Medication Instructions Recorded Confirmed blood sugar diagnostic #10 ea 04/25/20 10/26/20 bupropion HCl 150 mg 24 hr tablet, 150 mg PO QAM 04/25/20 10/26/20 extended release fluticasone propionate 50 1 spray INTRANASAL DAILY 04/25/20 10/26/20 mcg/actuation nasal spray,suspension lancets 28 gauge #100 ea 04/25/20 10/26/20 mirabegron 25 mg tablet,extended 25 mg PO QAM 04/25/20 10/26/20 release 24 hr oxygen-air delivery systems #1 04/25/20 10/26/20 pen needle, diabetic 31 gauge x #50 ea 04/25/20 06/29/2009/25 ropinirole 1 mg tablet 1 mg PO BID 04/25/20 10/26/20 trazodone 100 mg tablet 250 mg PO BEDTIME 04/25/20 10/26/20 Levemir FlexTouch U-100 Insuln 20 unit SUBCUT QAM 05/14/20 10/26/20 aspirin 81 mg tablet,delayed 81 mg PO DAILY 05/23/20 10/26/20 release gabapentin 300 mg capsule 300 mg PO DAILY cap 08/23/20 10/26/20 gabapentin 300 mg capsule 900 mg PO BEDTIME cap 10/26/20 10/26/20 Previous Rx's Medication Instructions Recorded docusate sodium 100 mg PO BID 30 Days #60 cap 05/31/20 montelukast 10 mg tablet 10 mg PO BEDTIME 90 Days #90 tab 06/29/20 diaper,brief,adult,disposable #64 ea 07/31/20 atorvastatin 80 mg tablet 80 mg PO DAILY #90 tab 10/25/20 azithromycin 250 mg tablet 250 mg PO ONCE 5 Days #6 tab 10/26/20 sennosides 8.6 mg-docusate sodium 1 tab-cap PO BEDTIME 30 Days #30 11/06/20 50 mg tablet tab metformin 500 mg tablet 500 mg PO QAM 90 Days #90 tab 11/26/20 Allergies Allergy/AdvReac Type Severity Reaction Status Date / Time adhesive tape [ADHESIVE TAPE] Allergy Intermediate RASH Verified 10/26/20 11:18 trimethobenzamide Allergy Mild NAUSEA Verified 10/26/20 11:18 [From TIGAN] environmental Allergy Intermediate Nasal Uncoded 10/26/20 11:18 congestion Review of Systems Review of Systems: Constitutional : No Weight loss, No Fever, No Chills ENT/Mouth : No sore throat, No Rhinorrhea Eyes: No Eye Pain, No Swelling Cardiovascular : No Chest Pain, no palpitations Respiratory : No Cough, No Sputum, + shortness of breath Gastrointestinal : no Nausea, No Vomiting, No Diarrhea, No abdominal Pain, no black stools Genitourinary : No Dysuria, No Urinary Frequency Musculoskeletal : No joint pain, No Myalgias, No Joint Swelling Skin : No Skin Lesions, No rash Neuro : No Weakness, No Numbness, No Dizziness, No Headache Psych : No Anxiety/Panic, No Depression Heme/Lymph: No Bruising, No Lymphadenopathy Endocrine : No Polyuria, No Polydipsia All other systems reviewed and are negative [facility] Past Medical History Medical History Arthritis Back pain Constipation due to opioid therapy COPD (chronic obstructive pulmonary disease) CPAP (continuous positive airway pressure) dependence 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, managed as type 1 DMII (diabetes mellitus, type 2) Elevated cholesterol GERD (gastroesophageal reflux disease) History of adrenal adenoma History of diverticulitis History of restless legs syndrome Hx SBO Hyperlipidemia No family history of adverse response to anesthesia Nocturnal hypoxemia Obesity (BMI 30-39.9) ALDO (obstructive sleep apnea) ALDO (obstructive sleep apnea) Osteoarthritis of left knee Osteochondroma of left femur Restrictive airway disease Sleep apnea Wears dentures Wears glasses Surgical History H/O colonoscopy H/O excision of mass H/O exploratory laparotomy History of appendectomy History of arthroscopy of left knee History of cholecystectomy History of hysterectomy History of oophorectomy History of partial colectomy History of surgery Hx of cataract extraction Family History Family History Father HTN (hypertension) Diabetes mellitus Mother HTN (hypertension) Liver cancer Social History Social History Are you a primary career development associate to a significant other at home: No Do you presently have visiting nurse or other home services: No Alcohol intake: never Patient Tobacco Use Status: Never used Tobacco Second Hand Smoke Exposure: Yes Use of substances other than those prescribed or required for medical reasons: No Advance Directives: No Advance Directives Information Provided: Yes service: No Current occupational status: unemployed Physical Exam Vital Signs: Vital Signs: Last Vital Signs Temp 97.8 F 12/13/20 20:10 Pulse 82 12/13/20 20:10 Resp 16 12/13/20 20:10 BP 152/77 H 12/13/20 20:10 Pulse Ox 100 12/13/20 20:10 Body Mass Index 39.0 Appearance: Alert. Oriented X3. No acute distress. Obese Eyes: PERRLA, No Nystagmus ENT: Pharynx normal. Oral Mucosa moist Neck: Normal inspection. Neck supple. CVS: Normal heart rate and rhythm. Pulses normal. Respiratory: No respiratory distress. Equal air entry bilateral, no wheezing/rales/rhonchi decreased air entry bilateral Abdomen: Soft and nontender. Bowel sounds are present, no mass palpable, no CVA tenderness Skin: Skin warm and dry. Normal skin color. Normal skin turgor. Extremities: No lower extremity edema. No calf tenderness Neuro: Oriented X 3. No motor deficit. No sensory deficit.No cerebellar signs , cranial nerves II-XII intact MDM - SOB/Dyspnea MDM Narrative Medical decision making narrative: Patient workup is negative for any CHF. Symptoms likely from sleep apnea Pickwickian syndrome patient already has oxygen at home at this time patient is saturating 97% on room air Lab Data Attestation: I reviewed the patient's lab results. Result diagrams: 12/13/20 17:02 12/13/20 17:02 Labs: Lab Results 12/13/20 12/13/20 12/13/20 Range/Units 17:02 17:02 17:02 WBC 9.5 (4.8-10.8) X10*3/uL RBC 4.33 (4.20-5.50) X10*6/uL Hgb 11.8 L (12.0-16.0) g/dl Hct 37.7 (37-47) % MCV 87.1 (80-98) fL MCH 27.3 (27.0-33.0) pg MCHC 31.3 (31.0-35.0) g/dl RDW 14.5 (11.0-16.0) % Plt Count 256 (160-400) X10*3/uL MPV 11.9 (9.4-12.3) fL Immature Gran % (Auto) 0.2 (0.0-0.4) % Neut % (Auto) 58.3 (45-73) % Lymph % (Auto) 31.4 (20-40) % [place] % (Auto) 7.0 (2-11) % Eos % (Auto) 2.8 (0-4) % Baso % (Auto) 0.3 (0-2) % Lymph # (Auto) 3.0 (1.2-4.9) X10*3/uL [place] # (Auto) 0.7 (0.1-1.2) X10*3/uL Eos # (Auto) 0.3 (0.0-0.4) X10*3/uL Baso # (Auto) 0.0 (0.0-0.2) X10*3/uL Abs Immat Gran (auto) 0.02 (0.00-0.03) X10*3/uL Absolute Neuts (auto) 5.5 (2.0-8.3) X10*3/uL Absolute Nucleated RBC 0.000 (0.0-0.012) X10*3/uL Nucleated RBC % (auto) 0.0 (0.0-0.2) /100WBC PT 11.7 (10.8-13.0) SEC INR 1.0 (0.9-1.1) APTT 34.3 (24.1-38.0) SEC D-Dimer 262 NG/ML VBG pH (7.32-7.43) VBG pCO2 mmHg VBG pO2 mmHg VBG HCO3 (22-26) mmol/L VBG O2 Saturation % VBG Base Excess mmol/L Sodium 142 (135-145) mmol/L Potassium 4.4 (3.3-5.1) mmol/L Chloride 104 (96-108) mmol/L Carbon Dioxide 29 (22-29) mmol/L Anion Gap 13 (12-20) BUN 16 (9-16) mg/dL Creatinine 0.99 (0.5-1.4) mg/dL Estim Creat Clear Calc 53.0 Estimated GFR 55 Random Glucose 112 (60-115) mg/dL Calcium 9.3 (8.4-10.2) mg/dL Total Bilirubin 0.3 (0.0-1.0) mg/dL Direct Bilirubin < 0.2 (0.0-0.5) mg/dL AST 16 (5-31) U/L ALT 16 (0-31) U/L Alkaline Phosphatase 49 (39-117) U/L Troponin I High Sens (<3.5-17.0) ng/L B-Natriuretic Peptide (<100) pg/mL Total Protein 6.7 (6.5-8.0) g/dL Albumin 4.0 (3.5-5.0) g/dL COVID-19 (JESSIKA) (Negative) COVID-19 Clin Com 12/13/20 12/13/20 12/13/20 Range/Units 17:02 17:02 17:07 WBC (4.8-10.8) X10*3/uL RBC (4.20-5.50) X10*6/uL Hgb (12.0-16.0) g/dl Hct (37-47) % MCV (80-98) fL MCH (27.0-33.0) pg MCHC (31.0-35.0) g/dl RDW (11.0-16.0) % Plt Count (160-400) X10*3/uL MPV (9.4-12.3) fL Immature Gran % (Auto) (0.0-0.4) % Neut % (Auto) (45-73) % Lymph % (Auto) (20-40) % [place] % (Auto) (2-11) % Eos % (Auto) (0-4) % Baso % (Auto) (0-2) % Lymph # (Auto) (1.2-4.9) X10*3/uL [place] # (Auto) (0.1-1.2) X10*3/uL Eos # (Auto) (0.0-0.4) X10*3/uL Baso # (Auto) (0.0-0.2) X10*3/uL Abs Immat Gran (auto) (0.00-0.03) X10*3/uL Absolute Neuts (auto) (2.0-8.3) X10*3/uL Absolute Nucleated RBC (0.0-0.012) X10*3/uL Nucleated RBC % (auto) (0.0-0.2) /100WBC PT (10.8-13.0) SEC INR (0.9-1.1) APTT (24.1-38.0) SEC D-Dimer NG/ML VBG pH 7.39 (7.32-7.43) VBG pCO2 54 mmHg VBG pO2 53 mmHg VBG HCO3 33 H (22-26) mmol/L VBG O2 Saturation 82.0 % VBG Base Excess 7.0 mmol/L Sodium (135-145) mmol/L Potassium (3.3-5.1) mmol/L Chloride (96-108) mmol/L Carbon Dioxide (22-29) mmol/L Anion Gap (12-20) BUN (9-16) mg/dL Creatinine (0.5-1.4) mg/dL Estim Creat Clear Calc Estimated GFR Random Glucose (60-115) mg/dL Calcium (8.4-10.2) mg/dL Total Bilirubin (0.0-1.0) mg/dL Direct Bilirubin (0.0-0.5) mg/dL AST (5-31) U/L ALT (0-31) U/L Alkaline Phosphatase (39-117) U/L Troponin I High Sens < 3.5 (<3.5-17.0) ng/L B-Natriuretic Peptide < 10 (<100) pg/mL Total Protein (6.5-8.0) g/dL Albumin (3.5-5.0) g/dL COVID-19 (JESSIKA) Negative (Negative) COVID-19 Clin Com See Note ECG Data Attestation: I personally reviewed and interpreted this ECG as follows: Interpretation: Normal sinus rhythm heart rate 84 beats per minute nonspecific ST T wave changes no acute ischemia Discharge Plan Discharge Clinical Impression: Chronic dyspnea Patient Disposition: Home, Self-Care Instructions: Dyspnea (ED) Additional Instructions: Your shortness of breath is likely because of gain weight and possible sleep apnea. Follow with PCP Prescriptions: No Action (DME) Depend Underwear For Women S-M Misc See Rx Instructions .ROUTE .MEDSUPPLY Qty: 64 RF: 6 atorvastatin 80 mg tablet 80 mg PO DAILY Qty: 90 RF: 0 sennosides-docusate sodium [Senokot-S] 8.6-50 mg tablet 1 tab-cap PO BEDTIME 30 Days Qty: 30 RF: 0 metformin 500 mg tablet 500 mg PO QAM 90 Days Qty: 90 RF: 0 Levemir FlexTouch U-100 Insuln 100 unit/mL (3 mL) insulin pen 20 unit subcut QAM RF: 0 docusate sodium 100 mg Capsule 100 mg PO BID 30 Days Qty: 60 RF: 0 montelukast 10 mg tablet 10 mg PO BEDTIME 90 Days Qty: 90 RF: 0 gabapentin 300 mg capsule 900 mg PO BEDTIME RF: 0 azithromycin 250 mg tablet 250 mg PO ONCE 5 Days Qty: 6 RF: 0 trazodone 100 mg tablet 250 mg PO BEDTIME RF: 0 (DME) blood sugar diagnostic Strip See Rx Instructions ea Not Applicable TID Qty: 10 RF: 0 mirabegron 25 mg tablet extended release 24 hr 25 mg PO QAM RF: 0 fluticasone propionate 50 mcg/actuation spray,suspension 1 spray intranasal DAILY RF: 0 bupropion HCl 150 mg tablet extended release 24 hr 150 mg PO QAM RF: 0 (DME) lancets 28 gauge misc See Rx Instructions ea topical TID Qty: 100 RF: 0 ropinirole 1 mg tablet 1 mg PO BID RF: 0 (DME) pen needle, diabetic 31 gauge x 3/16 needle See Rx Instructions ea subcut TID Qty: 50 RF: 0 (DME) oxygen-air delivery systems Device See Rx Instructions .ROUTE .MEDSUPPLY Qty: 1 RF: 0 gabapentin 300 mg capsule 300 mg PO DAILY RF: 0 aspirin [Adult Aspirin Regimen] 81 mg tablet,delayed release (DR/EC) 81 mg PO DAILY RF: 0 Hold Instructions: Resume on 06/15/20. Interventions: ED Discharge Assessment Last Done: 12/13/20 21:19 Discharge Date/Time: 12/13/20 21:20
[2020-12-13] MEDS: Albuterol/Iprat 2.5/0.5MG 3 ML AMPUL.NEB INHALE (16:58)
[2020-12-13 16:59] VITALS: PULSE 87; O2SAT 94
[2020-12-13 17:11] LABS: MANUAL DIFF FLAG NO
[2020-12-13 17:18] LABS: Venous Blood Gas Refer to POC result
[2020-12-13 17:18] LABS: Basophils Percent Auto 0.3 % (0-2); Eosinophils Absolute Auto 0.3 X10*3/uL (0.0-0.4); Eosinophils Percent Auto 2.8 % (0-4); Hematocrit 37.7 % (37-47); Hemoglobin 11.8 g/dl (12.0-16.0); Imm Gran Abs Auto 0.02 X10*3/uL (0.00-0.03); Imm Gran Pct Auto 0.2 % (0.0-0.4); Lymphocytes Percent Auto 31.4 % (20-40); Mean Corpuscular HGB Conc 31.3 g/dl (31.0-35.0); Mean Corpuscular Hemoglobin 27.3 pg (27.0-33.0); Mean Corpuscular Volume 87.1 fL (80-98); Mean Platelet Volume 11.9 fL (9.4-12.3); Monocytes Absolute Auto 0.7 X10*3/uL (0.1-1.2); Neutrophils Absolute Auto 5.5 X10*3/uL (2.0-8.3); Neutrophils Percent Auto 58.3 % (45-73); Platelet Count 256 X10*3/uL (160-400); Red Blood Count 4.33 X10*6/uL (4.20-5.50); Red Cell Distribution Width 14.5 % (11.0-16.0); White Blood Count 9.5 X10*3/uL (4.8-10.8)
[2020-12-13 17:19] LABS: VBG HCO3 33 mmol/L (22-26); VBG pCO2 54 mmHg; VBG pH 7.39 (7.32-7.43); VBG pO2 53 mmHg
[2020-12-13 17:24] VITALS: BP 124/67; PULSE 78; RESP 18; TEMP 37.1; O2SAT 96
[2020-12-13 17:31] LABS: Prothrombin Time 11.7 SEC (10.8-13.0)
[2020-12-13 17:34] LABS: D Dimer 262 NG/ML; Partial Thromboplastin Time 34.3 SEC (24.1-38.0)
[2020-12-13 17:40] LABS: Alanine Aminotransferase 16 U/L (0-31); Alkaline Phosphatase 49 U/L (39-117); Anion Gap 13 (12-20); Aspartate Amino Transferase 16 U/L (5-31); Bilirubin Direct < 0.2 mg/dL (0.0-0.5); Bilirubin Total 0.3 mg/dL (0.0-1.0); Blood Urea Nitrogen 16 mg/dL (9-16); Calcium 9.3 mg/dL (8.4-10.2); Carbon Dioxide 29 mmol/L (22-29); Chloride 104 mmol/L (96-108); Estimated Glomerular Filt Rate 55; Glucose Random 112 mg/dL (60-115); Potassium 4.4 mmol/L (3.3-5.1); Sodium 142 mmol/L (135-145); Total Protein 6.7 g/dL (6.5-8.0)
[2020-12-13 17:44] LABS: B Type Natriuretic Peptide < 10 pg/mL (<100); Troponin-I High Sensitivity < 3.5 ng/L (<3.5-17.0)
[2020-12-13 17:45] LABS: COVID-19 Test Negative (Negative)
[2020-12-13 20:10] VITALS: BP 152/77; PULSE 82; RESP 16; TEMP 36.6; O2SAT 100
== END 2020-12-13 21:20 | disposition home or self-care (01) ==
PROVIDERS: Emergency Provider Internal Medicine; PCP Internal Medicine
DX: R06.00 Dyspnea, unspecified (principal); Z20.822 Contact with and (suspected) exposure to COVID-19; J44.9 Chronic obstructive pulmonary disease, unspecified; E11.9 Type 2 diabetes mellitus without complications; E78.5 Hyperlipidemia, unspecified; Z99.81 Dependence on supplemental oxygen; Z79.02 Long term (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 antithrombotics/antiplatelets; Z79.82 Long term (current) use of aspirin; Z79.4 Long term (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 insulin
CPT/HCPCS: 36415; 71045; 80048; 80076; 83880; 84484; 85025; 85379; 85610; 85730; 87635; 93005; 94640; 99284; 99285

== ENCOUNTER → 2020-12-26 09:33 | Outpatient (BNVA) | payer MEDICARE, MEDICAID, SELFPAY | PROVIDERS: Visit Provider Orthopaedic Surgery | DX: Z47.1 Aftercare following joint replacement surgery (principal); Z96.652 Presence of left artificial knee joint | CPT/HCPCS: 99212 ==

== ENCOUNTER 2021-01-29 16:18 | Emergency (ER) | payer MEDICARE, MEDICAID, SELFPAY ==
--- NOTE | ~2021-01-29 | CT_ITS ---
EXAMINATION: CT ABDOMEN AND PELVIS WITHOUT CONTRAST CLINICAL INFORMATION: Diffuse abdominal pain. History of multiple small bowel obstructions. COMPARISON: CT abdomen and pelvis with contrast 01/19/2020. TECHNIQUE: Multidetector volumetric imaging was performed from the superior aspect of the liver through the pubic symphysis. Sagittal and coronal reformatted images were obtained on the technologist's workstation. This CT examination was performed using dose optimization techniques as appropriate, variously including the following: *Automated exposure control *Adjustment of mA and/or kV according to patient size (this includes techniques or standardized protocols for targeted exams where dose is matched to indication/reason for exam; i.e. extremities or head) *Use of iterative reconstruction technique DLP: 1001 mGy-cm FINDINGS: LUNG BASES: The heart size and the lung bases are clear. LIVER, GALLBLADDER, AND BILIARY TREE: The liver is normal in size, shape, and attenuation. No focal hepatic lesion or biliary ductal dilatation is present. The gallbladder is not visualized. PANCREAS: Unremarkable. SPLEEN: Unremarkable. ADRENAL GLANDS: Unremarkable. KIDNEYS AND URETERS: The kidneys are normal in size, shape, and attenuation. 3 mm calculi lower pole left kidney is stable. No additional calculi seen. There is no caliectasis or hydronephrosis. BLADDER: Unremarkable. GASTROINTESTINAL TRACT: There is an anastomotic suture line in the sigmoid colon, patent. Scattered stool, diverticuli and gas is seen in the colon. The small bowel loops are unremarkable. Smaller appendix is not seen. No free air or free fluid seen. ABDOMINAL WALL: No significant hernia is appreciated. LYMPH NODES: Normal. VASCULAR: Unremarkable. PELVIC VISCERA: No free air or free fluid seen. OSSEOUS STRUCTURES: There are degenerative disc changes L5-S1 disc level with vacuum disc phenomena. Rest of the disc levels, vertebral heights and alignment is normal. CT/CT abdomen pelvis wo con IMPRESSION: No acute intra-abdominal process seen. Anastomotic suture line sigmoid colon is stable. No obstruction or bowel dilatation seen. No change in the nonobstructing 3 mm calculi lower pole left kidney.
[2021-01-29 16:20] VITALS: BP 150/82; PULSE 99; RESP 18; TEMP 37.1; O2SAT 95; BMI 42.7
--- NOTE | 2021-01-29 18:18 | ECG_ITS ---
Test Reason : ABDOMINAL PAIN Blood Pressure : / mmHG Vent. Rate : 081 BPM Atrial Rate : 081 BPM P-R Int : 156 ms QRS Dur : 084 ms QT Int : 386 ms P-R-T Axes : 041 028 033 degrees QTc Int : 448 ms Normal sinus rhythm Nonspecific ST abnormality Abnormal ECG When compared with ECG of 13-DEC-2020 16:42, No significant change was found Referred By: Cleopatra Rogers Electronically Signed By:RAMSYE ZARATE MD
--- NOTE | 2021-01-29 18:23 | ED_ITS ---
HPI - Abdominal Pain General Chief Complaint: Abdominal Pain Stated Complaint: abdominal pain Time Seen by Provider: 01/29/21 18:06 Source: patient Mode of arrival: ambulatory Limitations: no limitations History of Present Illness HPI narrative: Patient comes emergency room complaining of diffuse abdominal pain but worse in the epigastric and umbilical area. Patient has had multiple small-bowel obstructions in the past, states it feels about same. Patient has been nauseous, no vomiting, had diarrhea 2 days ago, and no bowel movements for the last 2 days. Patient states that she is able to pass gas. Patient denies dysuria, no flank pain, no fever chills Related Data Home Medications Medication Instructions Recorded Confirmed blood sugar diagnostic #10 ea 04/25/20 10/26/20 bupropion HCl 150 mg 24 hr tablet, 150 mg PO QAM 04/25/20 10/26/20 extended release lancets 28 gauge #100 ea 04/25/20 10/26/20 mirabegron 25 mg tablet,extended 25 mg PO QAM 04/25/20 10/26/20 release 24 hr oxygen-air delivery systems #1 04/25/20 10/26/20 pen needle, diabetic 31 gauge x #50 ea 04/25/20 06/29/2009/25 ropinirole 1 mg tablet 1 mg PO BID 04/25/20 10/26/20 trazodone 100 mg tablet 250 mg PO BEDTIME 04/25/20 10/26/20 Levemir FlexTouch U-100 Insuln 20 unit SUBCUT QAM 05/14/20 10/26/20 aspirin 81 mg tablet,delayed 81 mg PO DAILY 05/23/20 10/26/20 release gabapentin 300 mg capsule 300 mg PO DAILY cap 08/23/20 10/26/20 gabapentin 300 mg capsule 900 mg PO BEDTIME cap 10/26/20 10/26/20 Previous Rx's Medication Instructions Recorded docusate sodium 100 mg PO BID 30 Days #60 cap 05/31/20 diaper,brief,adult,disposable #64 ea 07/31/20 azithromycin 250 mg tablet 250 mg PO ONCE 5 Days #6 tab 10/26/20 metformin 500 mg tablet 500 mg PO QAM 90 Days #90 tab 11/26/20 fluticasone propionate 50 1 spray INTRANASAL DAILY 30 Days 12/19/20 mcg/actuation nasal #16 g spray,suspension montelukast 10 mg tablet 10 mg PO BEDTIME 90 Days #90 tab 12/26/20 albuterol sulfate 90 mcg/actuation 2 puff INHALATION Q4-6H PRN 30 12/27/20 aerosol inhaler Days #8.5 g atorvastatin 80 mg tablet 80 mg PO DAILY #90 tab 01/18/21 cefuroxime axetil 500 mg PO BID #20 tab 01/29/21 hyoscyamine sulfate 0.25 mg PO QID PRN #10 tab 01/29/21 Allergies Allergy/AdvReac Type Severity Reaction Status Date / Time adhesive tape [ADHESIVE TAPE] Allergy Intermediate RASH Verified 01/29/21 16:20 trimethobenzamide Allergy Mild NAUSEA Verified 01/29/21 16:20 [From TIGAN] environmental Allergy Intermediate Nasal Uncoded 01/29/21 15:29 congestion Review of Systems Review of Systems Constitutional : No Weight loss, No Fever, No Chills, No Night Sweats, No Fatigue, No Malaise ENT/Mouth : No Hearing loss, No Ear Pain, No Nasal Congestion, No Sinus Pain, No Hoarseness, No sore throat, No Rhinorrhea, No Swallowing Difficulty Eyes: No Eye Pain, No Swelling, No Redness, No Foreign Body, No Discharge, No Vision Changes Cardiovascular : No Chest Pain, No SOB, No Dyspnea on Exertion, No Orthopnea, No Edema, No Palpitations Respiratory : No Cough, No Sputum, No Wheezing, No Smoke Exposure, No Dyspnea Gastrointestinal : Complaining of Nausea, No Vomiting, complaining Diarrhea 2 days ago, complaining of diffuse abdominal Pain but worse in the epigastric and malcolm umbilical area, No Hematochezia, No Melena Genitourinary : no irregular bleeding, No Dysuria, No Urinary Frequency, No Hematuria, No Urinary Incontinence, No Urgency, No Flank Pain, No Urinary Flow Changes, No Hesitancy Musculoskeletal : No joint pain, No Myalgias, No Joint Swelling Skin : No Skin Lesions, No rash Neuro : No Weakness, No Numbness, No Paresthesias, No Loss of Consciousness, No Dizziness, No Headache Psych : No Anxiety/Panic, No Depression, No SI/HI/AH/VH, No Social Issues, Heme/Lymph: No Bruising, No Bleeding,No Lymphadenopathy Endocrine : No Polyuria, No Polydipsia, No Temperature Intolerance Physical Exam Vital Signs: Vital Signs: Last Vital Signs Temp 98.7 F 01/29/21 16:20 Pulse 80 01/29/21 19:36 Resp 15 01/29/21 20:18 BP 140/74 H 01/29/21 19:36 Pulse Ox 97 01/29/21 19:36 Body Mass Index 42.7 Appearance: Alert. Oriented X3. Seems uncomfortable Eyes: Pupils equal, round and reactive to light. ENT: Pharynx normal. Neck: Normal inspection. Neck supple. No lymph nodes noted. No crepitus CVS: Normal heart rate and rhythm. Pulses normal. Normal S1 and S2 Respiratory: No respiratory distress. Breath sounds normal. No Wheezing. No rales Abdomen: Soft , diffuse abdominal pain but worse in the epigastric area. No rigidity. Moderate distention, no guarding, no rebound. Skin: Skin warm and dry. Normal skin color. Normal skin turgor. Extremities: No lower extremity edema. No lower extremity edema. No Lacerations. No Rash Neuro: Oriented X 3. No motor deficit. No sensory deficit. Moving all extermities. No slurred speech. Course Course Course Narrative: Patient feeling much better. Patient has not had any vomiting or diarrhea. I discussed the labs and imaging with the patient, no acute process. Urinalysis is pending. Patient does have a urine tract infection. Patient was giving a 1st dose of ceftriaxone in the emergency room. Sepsis is not suspected. MDM - Abdominal Pain Lab Data Result diagrams: 01/29/21 19:12 01/29/21 19:12 Labs: Lab Results 01/29/21 01/29/21 01/29/21 Range/Units 19:12 19:12 19:12 WBC Cancelled 11.2 H RBC Cancelled 4.19 L Hgb Cancelled 11.5 L Hct Cancelled 37.1 MCV Cancelled 88.5 MCH Cancelled 27.4 MCHC Cancelled 31.0 RDW Cancelled 14.2 Plt Count Cancelled 255 MPV Cancelled 11.2 Immature Gran % (Auto) Cancelled 0.4 Neut % (Auto) Cancelled 63.2 Lymph % (Auto) Cancelled 27.1 Daggett % (Auto) Cancelled 6.7 Eos % (Auto) Cancelled 2.4 Baso % (Auto) Cancelled 0.2 Lymph # (Auto) Cancelled 3.0 Daggett # (Auto) Cancelled 0.8 Eos # (Auto) Cancelled 0.3 Baso # (Auto) Cancelled 0.0 Abs Immat Gran (auto) Cancelled 0.05 H Absolute Neuts (auto) Cancelled 7.1 Absolute Nucleated RBC Cancelled 0.000 Nucleated RBC % (auto) Cancelled 0.0 Sodium 144 (135-145) mmol/L Potassium 4.2 (3.3-5.1) mmol/L Chloride 104 (96-108) mmol/L Carbon Dioxide 32 H (22-29) mmol/L Anion Gap 12 (12-20) BUN 14 (9-16) mg/dL Creatinine 1.23 (0.5-1.4) mg/dL Estim Creat Clear Calc 44.4 Estimated GFR 43 Random Glucose 93 (60-115) mg/dL Lactic Acid (0.5-2.0) mmol/L Calcium 9.2 (8.4-10.2) mg/dL Total Bilirubin 0.2 (0.0-1.0) mg/dL Direct Bilirubin (0.0-0.5) mg/dL AST 18 (5-31) U/L ALT 18 (0-31) U/L Alkaline Phosphatase 45 (39-117) U/L Total Protein 6.4 L (6.5-8.0) g/dL Albumin 3.7 (3.5-5.0) g/dL Lipase (8-78) U/L Urine Color Urine Appearance Urine pH (5.0-8.0) Ur Specific [place] (1.005-1.025) Urine Protein (NEG-TRACE) MG/DL Urine Glucose (UA) (NEG) MG/DL Urine Ketones (NEG) MG/DL Urine Blood (NEG) Urine Nitrite (NEG) Ur Leukocyte Esterase (NEG) Urine RBC (0) /HPF Urine WBC (0-4) /HPF Ur Squamous Epith Cells /LPF Tyrosine Crystals /LPF Amorphous Sediment /LPF Urine Bacteria /LPF Urine Mucus /LPF 01/29/21 01/29/21 01/29/21 Range/Units 19:12 19:12 19:12 WBC RBC Hgb Hct MCV MCH MCHC RDW Plt Count MPV Immature Gran % (Auto) Neut % (Auto) Lymph % (Auto) Daggett % (Auto) Eos % (Auto) Baso % (Auto) Lymph # (Auto) Daggett # (Auto) Eos # (Auto) Baso # (Auto) Abs Immat Gran (auto) Absolute Neuts (auto) Absolute Nucleated RBC Nucleated RBC % (auto) Sodium 143 (135-145) mmol/L Potassium 4.3 (3.3-5.1) mmol/L Chloride 103 (96-108) mmol/L Carbon Dioxide 33 H (22-29) mmol/L Anion Gap 11 L (12-20) BUN 14 (9-16) mg/dL Creatinine 1.22 (0.5-1.4) mg/dL Estim Creat Clear Calc 44.7 Estimated GFR 43 Random Glucose 94 (60-115) mg/dL Lactic Acid 1.2 (0.5-2.0) mmol/L Calcium 9.0 (8.4-10.2) mg/dL Total Bilirubin 0.3 (0.0-1.0) mg/dL Direct Bilirubin < 0.2 (0.0-0.5) mg/dL AST 19 (5-31) U/L ALT 18 (0-31) U/L Alkaline Phosphatase 45 (39-117) U/L Total Protein 6.4 L (6.5-8.0) g/dL Albumin 3.7 (3.5-5.0) g/dL Lipase 14 (8-78) U/L Urine Color Urine Appearance Urine pH (5.0-8.0) Ur Specific [place] (1.005-1.025) Urine Protein (NEG-TRACE) MG/DL Urine Glucose (UA) (NEG) MG/DL Urine Ketones (NEG) MG/DL Urine Blood (NEG) Urine Nitrite (NEG) Ur Leukocyte Esterase (NEG) Urine RBC (0) /HPF Urine WBC (0-4) /HPF Ur Squamous Epith Cells /LPF Tyrosine Crystals /LPF Amorphous Sediment /LPF Urine Bacteria /LPF Urine Mucus /LPF 01/29/ Range/Units 20:43 WBC RBC Hgb Hct MCV MCH MCHC RDW Plt Count MPV Immature Gran % (Auto) Neut % (Auto) Lymph % (Auto) Daggett % (Auto) Eos % (Auto) Baso % (Auto) Lymph # (Auto) Daggett # (Auto) Eos # (Auto) Baso # (Auto) Abs Immat Gran (auto) Absolute Neuts (auto) Absolute Nucleated RBC Nucleated RBC % (auto) Sodium (135-145) mmol/L Potassium (3.3-5.1) mmol/L Chloride (96-108) mmol/L Carbon Dioxide (22-29) mmol/L Anion Gap (12-20) BUN (9-16) mg/dL Creatinine (0.5-1.4) mg/dL Estim Creat Clear Calc Estimated GFR Random Glucose (60-115) mg/dL Lactic Acid (0.5-2.0) mmol/L Calcium (8.4-10.2) mg/dL Total Bilirubin (0.0-1.0) mg/dL Direct Bilirubin (0.0-0.5) mg/dL AST (5-31) U/L ALT (0-31) U/L Alkaline Phosphatase (39-117) U/L Total Protein (6.5-8.0) g/dL Albumin (3.5-5.0) g/dL Lipase (8-78) U/L Urine Color YELLOW Urine Appearance HAZY Urine pH 6.0 (5.0-8.0) Ur Specific [place] >= 1.030 H (1.005-1.025) Urine Protein 1+ H (NEG-TRACE) MG/DL Urine Glucose (UA) NEG (NEG) MG/DL Urine Ketones NEG (NEG) MG/DL Urine Blood 3+ H (NEG) Urine Nitrite POS H (NEG) Ur Leukocyte Esterase 1+ H (NEG) Urine RBC 15-29 H (0) /HPF Urine WBC 30-49 H (0-4) /HPF Ur Squamous Epith Cells 1+ /LPF Tyrosine Crystals TRACE /LPF Amorphous Sediment TRACE /LPF Urine Bacteria 3+ /LPF Urine Mucus TRACE /LPF Imaging Data CT scan - abdomen: Radiologist's impression: INDINGS: LUNG BASES: The heart size and the lung bases are clear. LIVER, GALLBLADDER, AND BILIARY TREE: The liver is normal in size, shape, and attenuation. No focal hepatic lesion or biliary ductal dilatation is present. The gallbladder is not visualized. PANCREAS: Unremarkable. SPLEEN: Unremarkable. ADRENAL GLANDS: Unremarkable. KIDNEYS AND URETERS: The kidneys are normal in size, shape, and attenuation. 3 mm calculi lower pole left kidney is stable. No additional calculi seen. There is no caliectasis or hydronephrosis. BLADDER: Unremarkable. GASTROINTESTINAL TRACT: There is an anastomotic suture line in the sigmoid colon, patent. Scattered stool, diverticuli and gas is seen in the colon. The small bowel loops are unremarkable. Smaller appendix is not seen. No free air or free fluid seen. ABDOMINAL WALL: No significant hernia is appreciated. LYMPH NODES: Normal. VASCULAR: Unremarkable. PELVIC VISCERA: No free air or free fluid seen. OSSEOUS STRUCTURES: There are degenerative disc changes L5-S1 disc level with vacuum disc phenomena. Rest of the disc levels, vertebral heights and alignment is normal. CT/CT abdomen pelvis wo con IMPRESSION: No acute intra-abdominal process seen. Anastomotic suture line sigmoid colon is stable. No obstruction or bowel dilatation seen. No change in the nonobstructing 3 mm calculi lower pole left kidney. ECG Data Attestation: I personally reviewed and interpreted this ECG as follows: (Sinus rhythm, heart rate 81, no ST segment depression, T-wave inversion, QTC 448) Discharge Plan Discharge Clinical Impression: Acute UTI (urinary tract infection) Abdominal pain Qualifiers: Abdominal location: generalized Qualified Code(s): R10.84 - Generalized abdominal pain Patient Disposition: Home, Self-Care Instructions: Abdominal Pain (ED), Urinary Tract Infection in Older Adults (ED) Additional Instructions: Please follow-up with your primary care physician tomorrow. If you have any worsening or new symptoms, please return to the emergency room or call 911 Prescriptions: New hyoscyamine sulfate 0.125 mg tablet 0.25 mg PO QID PRN (Reason: dyspepsia) Qty: 10 RF: 0 cefuroxime axetil 500 mg tablet 500 mg PO BID Qty: 20 RF: 0 No Action (DME) Depend Underwear For Women S-M Misc See Rx Instructions .ROUTE .MEDSUPPLY Qty: 64 RF: 6 metformin 500 mg tablet 500 mg PO QAM 90 Days Qty: 90 RF: 0 fluticasone propionate 50 mcg/actuation spray,suspension 1 spray intranasal DAILY 30 Days Qty: 16 RF: 5 montelukast 10 mg tablet 10 mg PO BEDTIME 90 Days Qty: 90 RF: 0 albuterol sulfate [ProAir HFA] 90 mcg/actuation HFA aerosol inhaler 2 puff inhalation Q4-6H PRN (Reason: shortness of breath or wheezing) 30 Days Qty: 8.5 RF: 1 atorvastatin 80 mg tablet 80 mg PO DAILY Qty: 90 RF: 0 Levemir FlexTouch U-100 Insuln 100 unit/mL (3 mL) insulin pen 20 unit subcut QAM RF: 0 docusate sodium 100 mg Capsule 100 mg PO BID 30 Days Qty: 60 RF: 0 gabapentin 300 mg capsule 900 mg PO BEDTIME RF: 0 azithromycin 250 mg tablet 250 mg PO ONCE 5 Days Qty: 6 RF: 0 trazodone 100 mg tablet 250 mg PO BEDTIME RF: 0 (DME) blood sugar diagnostic Strip See Rx Instructions ea Not Applicable TID Qty: 10 RF: 0 mirabegron 25 mg tablet extended release 24 hr 25 mg PO QAM RF: 0 bupropion HCl 150 mg tablet extended release 24 hr 150 mg PO QAM RF: 0 (DME) lancets 28 gauge misc See Rx Instructions ea topical TID Qty: 100 RF: 0 ropinirole 1 mg tablet 1 mg PO BID RF: 0 (DME) pen needle, diabetic 31 gauge x 3/16 needle See Rx Instructions ea subcut TID Qty: 50 RF: 0 (DME) oxygen-air delivery systems Device See Rx Instructions .ROUTE .MEDSUPPLY Qty: 1 RF: 0 gabapentin 300 mg capsule 300 mg PO DAILY RF: 0 aspirin [Adult Aspirin Regimen] 81 mg tablet,delayed release (DR/EC) 81 mg PO DAILY RF: 0 Hold Instructions: Resume on 06/15/20. [facility] Past Medical History Medical History Arthritis Back pain Constipation due to opioid therapy COPD (chronic obstructive pulmonary disease) CPAP (continuous positive airway pressure) dependence 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, managed as type 1 DMII (diabetes mellitus, type 2) Elevated cholesterol GERD (gastroesophageal reflux disease) History of adrenal adenoma History of diverticulitis History of restless legs syndrome Hx SBO Hyperlipidemia No family history of adverse response to anesthesia Nocturnal hypoxemia Obesity (BMI 30-39.9) ALDO (obstructive sleep apnea) ALDO (obstructive sleep apnea) Osteoarthritis of left knee Osteochondroma of left femur Restrictive airway disease Sleep apnea Wears dentures Wears glasses Surgical History H/O colonoscopy H/O excision of mass H/O exploratory laparotomy History of appendectomy History of arthroscopy of left knee History of cholecystectomy History of hysterectomy History of oophorectomy History of partial colectomy History of surgery Hx of cataract extraction Family History Family History Father HTN (hypertension) Diabetes mellitus Mother HTN (hypertension) Liver cancer Social History Social History Are you a primary managed care provider to a significant other at home: No Do you presently have visiting nurse or other home services: No Alcohol intake: never Patient Tobacco Use Status: Never used Tobacco Second Hand Smoke Exposure: Yes Advance Directives: No Advance Directives Information Provided: Yes service: No Current occupational status: unemployed
[2021-01-29 19:23] LABS: MANUAL DIFF FLAG NO
[2021-01-29 19:25] LABS: Basophils Percent Auto 0.2 % (0-2); Eosinophils Absolute Auto 0.3 X10*3/uL (0.0-0.4); Eosinophils Percent Auto 2.4 % (0-4); Hematocrit 37.1 % (37-47); Hemoglobin 11.5 g/dl (12.0-16.0); Imm Gran Abs Auto 0.05 X10*3/uL (0.00-0.03); Imm Gran Pct Auto 0.4 % (0.0-0.4); Lymphocytes Percent Auto 27.1 % (20-40); Mean Corpuscular Hemoglobin 27.4 pg (27.0-33.0); Mean Corpuscular Volume 88.5 fL (80-98); Mean Platelet Volume 11.2 fL (9.4-12.3); Monocytes Absolute Auto 0.8 X10*3/uL (0.1-1.2); Monocytes Percent Auto 6.7 % (2-11); Neutrophils Absolute Auto 7.1 X10*3/uL (2.0-8.3); Neutrophils Percent Auto 63.2 % (45-73); Platelet Count 255 X10*3/uL (160-400); Red Blood Count 4.19 X10*6/uL (4.20-5.50); Red Cell Distribution Width 14.2 % (11.0-16.0); White Blood Count 11.2 X10*3/uL (4.8-10.8)
[2021-01-29 19:36] VITALS: BP 140/74; PULSE 80; RESP 18; O2SAT 97
[2021-01-29 19:49] LABS: Lactic Acid 1.2 mmol/L (0.5-2.0)
[2021-01-29 19:52] LABS: Alanine Aminotransferase 18 U/L (0-31); Albumin Level 3.7 g/dL (3.5-5.0); Alkaline Phosphatase 45 U/L (39-117); Anion Gap 11 (12-20); Aspartate Amino Transferase 19 U/L (5-31); Bilirubin Direct < 0.2 mg/dL (0.0-0.5); Bilirubin Total 0.3 mg/dL (0.0-1.0); Blood Urea Nitrogen 14 mg/dL (9-16); Carbon Dioxide 33 mmol/L (22-29); Chloride 103 mmol/L (96-108); Creatinine Clr Calc Pharmacy 44.7; Estimated Glomerular Filt Rate 43; Glucose Random 94 mg/dL (60-115); Lipase 14 U/L (8-78); Potassium 4.3 mmol/L (3.3-5.1); Sodium 143 mmol/L (135-145); Total Protein 6.4 g/dL (6.5-8.0)
[2021-01-29 19:53] LABS: Alanine Aminotransferase 18 U/L (0-31); Albumin Level 3.7 g/dL (3.5-5.0); Alkaline Phosphatase 45 U/L (39-117); Anion Gap 12 (12-20); Aspartate Amino Transferase 18 U/L (5-31); Bilirubin Total 0.2 mg/dL (0.0-1.0); Blood Urea Nitrogen 14 mg/dL (9-16); Calcium 9.2 mg/dL (8.4-10.2); Carbon Dioxide 32 mmol/L (22-29); Chloride 104 mmol/L (96-108); Creatinine Clr Calc Pharmacy 44.4; Estimated Glomerular Filt Rate 43; Glucose Random 93 mg/dL (60-115); Potassium 4.2 mmol/L (3.3-5.1); Sodium 144 mmol/L (135-145); Total Protein 6.4 g/dL (6.5-8.0)
[2021-01-29 20:18] VITALS: RESP 15
[2021-01-29] MEDS: HYDROmorphone HCl 1 MG/ML SYRINGE IVPUSH (20:18)
[2021-01-29] MEDS: ondansetron HCL 4 MG/2 ML VIAL IVPUSH (20:18)
[2021-01-29] MEDS: 0.9 % Sodium Chloride 1,000 ML 999 ML IVCONT (20:18)
[2021-01-29 20:49] LABS: Appearance Urine HAZY; Color Urine YELLOW; Glucose Urine UA NEG (NEG); Leukocyte Esterase Urine 1+ (NEG); Nitrite Urine POS (NEG); Specific Gravity - Urine >= 1.030 (1.005-1.025); UACC Culture Trigger YES; Urine Blood 3+ (NEG); Urine Ketones NEG (NEG); Urine Protein 1+ MG/DL (NEG-TRACE)
[2021-01-29 20:56] LABS: Bacteria Urine 3+ /LPF; Mucus Urine TRACE /LPF; Squamous Epithelial Cell Urine 1+ /LPF; Tyrosine Crystal Urine TRACE /LPF; WBC Urine 30-49 /HPF (0-4)
[2021-01-29 20:57] LABS: Amorphous Sediment Urine TRACE /LPF
[2021-01-29] MEDS: cefTRIAXone sodium 1 GM in 0.9 % Sodium Chloride 50 ML IV (22:06)
[2021-01-29 22:11] VITALS: BP 105/60; PULSE 82; RESP 18; TEMP 36.6; O2SAT 93
[2021-01-29] MEDS: Acetaminophen 325 MG TABLET 975 MG PO (22:48)
[2021-01-29] MEDS: Ibuprofen 400 MG TABLET PO (22:49)
== END 2021-01-29 23:10 | disposition home or self-care (01) ==
PROVIDERS: Emergency Provider Emergency Medicine; PCP Internal Medicine
DX: N39.0 Urinary tract infection, site not specified (principal); E11.9 Type 2 diabetes mellitus without complications; J44.9 Chronic obstructive pulmonary disease, unspecified; Z79.4 Long term (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 insulin; Z79.899 Other long term (current) drug therapy
CPT/HCPCS: 36415; 51701; 74176; 80048; 80053; 80076; 81001; 81003; 82248; 83605; 83690; 85025; 87086; 87088; 87186; 93005; 96365; 96375; 99284; J0696; J1170; J2405

== ENCOUNTER 2021-02-05 10:45 | Emergency (ER) | payer MEDICARE, MEDICAID, SELFPAY ==
--- NOTE | ~2021-02-05 | US_ITS ---
EXAMINATION: US VENOUS ULTRASOUND WITH DOPPLER LOWER EXTREMITY, BILATERAL CLINICAL INFORMATION: Bilateral lower extremity swelling, left greater than right COMPARISON: Previous lower extremity venous ultrasound most recent December 2019 TECHNIQUE: Ultrasound of the deep veins is performed from the hip to the calf with compression sonography and color and pulse Doppler assessment. Spectral analysis with color-flow imaging is performed. FINDINGS: RIGHT: There is normal venous compression and respiratory variation and augmented flow. The visualized common femoral vein, superficial femoral vein, profunda femoral vein, popliteal vein, and the trifurcation region shows no evidence of deep venous thrombosis. There is no significant popliteal fossa cyst. LEFT: There is normal venous compression and respiratory variation and augmented flow. The visualized common femoral vein, superficial femoral vein, profunda femoral vein, popliteal vein, and the trifurcation region shows no evidence of deep venous thrombosis. There is no significant popliteal fossa cyst. US/US venous duplex LE BI IMPRESSION: No DVT demonstrated in the bilateral lower extremity.
--- NOTE | ~2021-02-05 | XR_ITS ---
EXAMINATION: XR CHEST CLINICAL INFORMATION: Shortness of breath COMPARISON: None TECHNIQUE: Frontal view of the chest was obtained. FINDINGS: The lungs are well-expanded and clear of acute pneumonic process. The heart size and pulmonary vascularity is normal. There is moderate spondylosis dorsal spine. No lytic process seen. XR/XR chest 1V IMPRESSION: Unremarkable chest exam. Mild cardiomegaly. Moderate spondylosis dorsal spine.
[2021-02-05 11:35] VITALS: BP 123/60; BP 141/76; PULSE 84; PULSE 90; RESP 16; TEMP 36.5; O2SAT 99; BMI 42.0
--- NOTE | 2021-02-05 11:48 | PC.NURSE ---
Pt alert and oriented x3, vss, LS audible inspiratory and expiratory wheezes. Pt states yesterday after walking to her car she began having a copd exacerbation. Pt is on 2L n/c at home. She states that she used her inhaler 2hrs ago with no relief. and has dyspnia with exertion. Pt got an albuterol tx in the ambulance with some relief. Pt denies sob/difficulty breathing at this time. No apparent distress noted. Awaiting ED provider.
--- NOTE | 2021-02-05 12:27 | ECG_ITS ---
Test Reason : DYSPNEA Blood Pressure : / mmHG Vent. Rate : 081 BPM Atrial Rate : 081 BPM P-R Int : 158 ms QRS Dur : 086 ms QT Int : 396 ms P-R-T Axes : 047 018 024 degrees QTc Int : 460 ms Normal sinus rhythm Nonspecific ST abnormality Abnormal ECG When compared with ECG of 29-JAN-2021 19:01, No significant change was found Referred By: Radha Jacinto Electronically Signed By:CASH SHELBY
[2021-02-05] MEDS: guaiFEN/Codeine SF 200/20/10ML 10 ML LIQUID PO (12:52)
[2021-02-05] MEDS: Magnesium Sulfate/H2O 2 GM/50 ML PIGGYBACK IV (12:52)
[2021-02-05] MEDS: methylPREDNISolone Sod Succ 125 MG/2 ML VIAL IVPUSH (12:52)
[2021-02-05] MEDS: Acetaminophen 325 MG TABLET 650 MG PO (13:23)
[2021-02-05] MEDS: diphenhydrAMINE HCL 25 MG TABLET 50 MG PO (13:23)
--- NOTE | 2021-02-05 13:38 | PC.NURSE ---
Iv in the pt's R hand that was placed by ems infiltrated. New IV 22 gauge placed in R wrist also infiltrated. Pt is a difficult stick, this health underwriter is awaiting another RN to place a new IV.
[2021-02-05 14:46] LABS: MANUAL DIFF FLAG NO
[2021-02-05 14:48] LABS: Basophils Percent Auto 0.2 % (0-2); Eosinophils Absolute Auto 0.3 X10*3/uL (0.0-0.4); Eosinophils Percent Auto 2.2 % (0-4); Hematocrit 38.3 % (37-47); Hemoglobin 11.8 g/dl (12.0-16.0); Imm Gran Abs Auto 0.04 X10*3/uL (0.00-0.03); Imm Gran Pct Auto 0.3 % (0.0-0.4); Lymphocytes Absolute Auto 2.6 X10*3/uL (1.2-4.9); Lymphocytes Percent Auto 21.8 % (20-40); Mean Corpuscular HGB Conc 30.8 g/dl (31.0-35.0); Mean Corpuscular Hemoglobin 27.2 pg (27.0-33.0); Mean Corpuscular Volume 88.2 fL (80-98); Mean Platelet Volume 11.5 fL (9.4-12.3); Monocytes Absolute Auto 0.5 X10*3/uL (0.1-1.2); Monocytes Percent Auto 4.1 % (2-11); Neutrophils Absolute Auto 8.6 X10*3/uL (2.0-8.3); Neutrophils Percent Auto 71.4 % (45-73); Platelet Count 235 X10*3/uL (160-400); Red Blood Count 4.34 X10*6/uL (4.20-5.50); Red Cell Distribution Width 14.2 % (11.0-16.0); White Blood Count 12.1 X10*3/uL (4.8-10.8)
--- NOTE | 2021-02-05 14:48 | ED_ITS ---
HPI - General Adult General Chief complaint: Upper Respiratory Symptoms Stated complaint: R KNEE PAIN AFTER MIS STEP Time Seen by Provider: 02/05/21 12:04 Source: patient and EMS Mode of arrival: EMS Limitations: no limitations History of Present Illness HPI narrative: 71-year-old female with a past medical history of COPD, obstructive sleep apnea, restrictive airway disease, nocturnal hypoxemia currently on on 2 L of nasal cannula oxygen at bedtime only and multiple comorbidities presenting to the ED via EMS with complaints of a dry cough over the past week worse in the past 2 days where she is using her Singulair and albuterol inhaler and mild to no symptomatic relief. She reports she placed her 2 L of nasal cannula oxygen on during the day this morning due to she was having difficulty breathing this morning. She says the shortness of breath is worse with walking or laying down flat. She denies any dizziness, headaches, fevers, change in vision, chest pain, nausea/vomiting/diarrhea, abdominal pain or any other symptoms complaints or concerns at this time. MD complaint: Shortness of breath/cough Onset (ago): week(s) (One week worse since yesterday) Related Data Home Medications Medication Instructions Recorded Confirmed bupropion HCl 150 mg 24 hr tablet, 150 mg PO QAM 04/25/20 10/26/20 extended release lancets 28 gauge #100 ea 04/25/20 10/26/20 mirabegron 25 mg tablet,extended 25 mg PO QAM 04/25/20 10/26/20 release 24 hr oxygen-air delivery systems #1 04/25/20 10/26/20 pen needle, diabetic 31 gauge x #50 ea 04/25/20 06/29/2009/25 trazodone 100 mg tablet 250 mg PO BEDTIME 04/25/20 10/26/20 Levemir FlexTouch U-100 Insuln 20 unit SUBCUT QAM 05/14/20 10/26/20 aspirin 81 mg tablet,delayed 81 mg PO DAILY 05/23/20 10/26/20 release gabapentin 300 mg capsule 300 mg PO DAILY cap 08/23/20 10/26/20 gabapentin 300 mg capsule 900 mg PO BEDTIME cap 10/26/20 10/26/20 Previous Rx's Medication Instructions Recorded docusate sodium 100 mg PO BID 30 Days #60 cap 05/31/20 diaper,brief,adult,disposable #64 ea 07/31/20 azithromycin 250 mg tablet 250 mg PO ONCE 5 Days #6 tab 10/26/20 metformin 500 mg tablet 500 mg PO QAM 90 Days #90 tab 11/26/20 fluticasone propionate 50 1 spray INTRANASAL DAILY 30 Days 12/19/20 mcg/actuation nasal #16 g spray,suspension montelukast 10 mg tablet 10 mg PO BEDTIME 90 Days #90 tab 12/26/20 albuterol sulfate 90 mcg/actuation 2 puff INHALATION Q4-6H PRN 30 12/27/20 aerosol inhaler Days #8.5 g cefuroxime axetil 500 mg PO BID #20 tab 01/29/21 hyoscyamine sulfate 0.25 mg PO QID PRN #10 tab 01/29/21 ropinirole 1 mg tablet 1 mg PO BID 30 Days #60 tab 01/30/21 atorvastatin 80 mg tablet 80 mg PO DAILY #90 tab 02/04/21 blood sugar diagnostic See Rx Instructions .ROUTE TID 02/04/21 #100 strip albuterol sulfate 0.63 mg INHALATION QID PRN #75 ml 02/05/21 albuterol sulfate 1 inh INHALATION QID PRN #8.5 g 02/05/21 azithromycin See Rx Instructions .ROUTE 02/05/21 .COMPLEX #6 tab codeine-guaifenesin [Guaifenesin 5 ml PO Q6H PRN #120 ml 02/05/21 AC] nebulizers [AeroEclipse II #1 ea 02/05/21 Nebulizer] prednisone 40 mg PO DAILY 5 Days #10 tab 02/05/21 Allergies Allergy/AdvReac Type Severity Reaction Status Date / Time adhesive tape [ADHESIVE TAPE] Allergy Intermediate RASH Verified 01/29/21 16:20 trimethobenzamide Allergy Mild NAUSEA Verified 01/29/21 16:20 [From TIGAN] environmental Allergy Intermediate Nasal Uncoded 01/29/21 15:29 congestion Review of Systems Review of Systems: Constitutional : No Weight loss, No Fever, No Chills, No Night Sweats, No Fatigue, No Malaise ENT/Mouth : No Hearing loss, No Ear Pain, No Nasal Congestion, No Sinus Pain, No Hoarseness, No sore throat, No Rhinorrhea, No Swallowing Difficulty Eyes: No Eye Pain, No Swelling, No Redness, No Foreign Body, No Discharge, No Vision Changes Cardiovascular : Positive shortness of breath/dyspnea on exertion/orthopnea, No Chest Pain, No Edema, No Palpitations Respiratory : Positive Cough, positive wheezing, No Sputum Gastrointestinal : No Nausea, No Vomiting, No Diarrhea, No Constipation, No abdominal Pain, No Hematochezia, No Melena Genitourinary : no irregular bleeding, No Dysuria, No Urinary Frequency, No Hematuria, No Urinary Incontinence, No Urgency, No Flank Pain, No Urinary Flow Changes, No Hesitancy Musculoskeletal : No joint pain, No Myalgias, No Joint Swelling Skin : No Skin Lesions, No rash Neuro : No Weakness, No Numbness, No Paresthesias, No Loss of Consciousness, No Dizziness, No Headache Psych : No Anxiety/Panic, No Depression, No SI/HI/AH/VH, No Social Issues, Heme/Lymph: No Bruising, No Bleeding,No Lymphadenopathy Endocrine : No Polyuria, No Polydipsia, No Temperature Intolerance Yes all other systems are reviewed and are negative PMFSH Past Medical History Attestation statement: The following information was validated with the patient. Medical History Arthritis Back pain Constipation due to opioid therapy COPD (chronic obstructive pulmonary disease) CPAP (continuous positive airway pressure) dependence 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, managed as type 1 DMII (diabetes mellitus, type 2) Elevated cholesterol GERD (gastroesophageal reflux disease) History of adrenal adenoma History of diverticulitis History of restless legs syndrome Hx SBO Hyperlipidemia No family history of adverse response to anesthesia Nocturnal hypoxemia Obesity (BMI 30-39.9) ALDO (obstructive sleep apnea) ALDO (obstructive sleep apnea) Osteoarthritis of left knee Osteochondroma of left femur Restrictive airway disease Sleep apnea Wears dentures Wears glasses Surgical History H/O colonoscopy H/O excision of mass H/O exploratory laparotomy History of appendectomy History of arthroscopy of left knee History of cholecystectomy History of hysterectomy History of oophorectomy History of partial colectomy History of surgery Hx of cataract extraction Family History Family History Father HTN (hypertension) Diabetes mellitus Mother HTN (hypertension) Liver cancer Social History Social History Are you a primary adult care provider to a significant other at home: No Do you presently have visiting nurse or other home services: No Alcohol intake: never Patient Tobacco Use Status: Never used Tobacco Second Hand Smoke Exposure: Yes Use of substances other than those prescribed or required for medical reasons: No Advance Directives: Yes Advance Directives Information Provided: No Advance Directives on File: No service: No Current occupational status: unemployed Physical Exam Vital Signs: Vital Signs: Last Vital Signs Temp 97.7 F 02/05/21 11:35 Pulse 79 02/05/21 16:08 Resp 13 02/05/21 14:49 BP 142/66 H 02/05/21 14:49 Pulse Ox 99 02/05/21 14:49 Oxygen Flow Rate 2 02/05/21 11:35 Body Mass Index 42.0 vital signs have been reviewed as normal and appeared to be correct. Blood pressure normal. Heart rate normal. Respiration rate normal. Temperature normal. Oxygen saturation normal. Appearance: Alert. Oriented X3. No acute distress. Head: Normal external exam. Normocephalic. Atraumatic. Eyes: PERRLA. EOMI. Conjunctiva and sclera normal. Eyelids normal. ENT: EAC normal. TM's Normal. Pharynx normal. Uvula midline. Moist mucous membranes. No trismus noted. No drooling noted. No muffled voice noted. Neck: Normal inspection. Neck supple. FROM. No adenopathy. Thyroid Normal. No meningeal signs. No neck mass noted. CVS: Normal heart rate and rhythm. Heart sound normal. Pulses normal throughout. No murmurs/rales/gallops. Respiratory: Mild respiratory distress with 2 L of nasal cannula on with inspiratory and expiratory wheezing throughout and decreased breath sounds. No rales/rhonchi noted. Chest nontender. Abdomen: Soft and nontender. Bowel sounds normal in all 4 quadrants. No distention noted. No organomegaly noted. No visible injury noted. Back: Full range of motion noted. No rashes/lesion/induration/fluctuance or signs of infection noted. Skin: Skin warm and dry. Normal skin color. Normal skin turgor. No rashes/lesions/lacerations noted. Extremities: Lower extremity edema worse on the left than the right with calf tenderness on the left side. No calf tenderness to the right lower extremity. Extremities exhibit normal range of motion. Extremities nontender. Neuro: Oriented X 3. No motor deficit. No sensory deficit. Reflexes normal. Normal steady gait. No focal neuro deficits noted. Vascular: + radial pulses/+ 2 distal pedal pulses/+2 dorsalis pedis b/l. Normal cap refill. No cyanosis noted to upper extremity nails and lower extremity toes nails. Course Course Course Narrative: 12:30pm - 71-year-old presenting to the ED via EMS with complaints of a dry cough over the past week worse in the past 2 days where she is using her Singulair and albuterol inhaler and mild to no symptomatic relief. She reports she placed her 2 L of nasal cannula oxygen on during the day this morning due to she was having difficulty breathing this morning. She says the shortness of breath is worse with walking or laying down flat. On exam patient is alert and oriented x3. In mild respiratory distress with inspiratory and expiratory wheezing throughout and decreased breath sounds requiring to use her 2 L of nasal cannula oxygen during the day at this time. Otherwise no other acute distress. Vital signs are stable within normal limits. CV RRR. Abdomen is soft nontender. Patient was noted to have bilateral pitting edema worse on the left than the right with left calf tenderness. Although has bilateral distal +2 pedal pulses. Plan: Labs, chest x-ray, EKG, venous duplex ultrasound of bilateral lower extremities, COVID/flu/RSV swab, UA. Provide a L of IV fluids, 2 g of magnesium, 125 mg Solu-Medrol and 10 mg of Robitussin with codeine and re- evaluate. Reevaluation(s) Reevaluation #1: - patient had an IV that infiltrated from EMS to her right hand dorsal aspect the nurse noticed right away pulled out the IV in place warm compresses and I gave the patient some Tylenol and some Benadryl due to she was reporting some itchiness as well. - CXR revealed mild cardiomegaly otherwise no acute processes are noted. - EKG normal sinus rhythm with ventricular of [address] abnormalities no acute ischemic changes are noted. - Still awaiting labs and ultrasound of lower extremities at this time. Time: 13:10 Reevaluation #2: - labs [place] [id number]. Random glucose 116. Troponin 3.9. Otherwise all other labs are within normal limits. UA with blood otherwise no evidence of UTI. Patient negative for COVID/RSV/flu. - awaiting venous duplex ultrasound of lower extremities Time: 15:51 Reevaluation #3: - venous duplex ultrasound of lower extremity within normal limits. - I took the patient off of the 2 L of nasal cannula oxygen and she continues to stay at 94-96% on room air. - therefore at this time will DC home with antibiotics for bronchitis, predn isone, and inhalers and instructions to return if any new or worsening symptoms to follow up with primary care provider. Patient understands agrees with this plan. Time: 16:45 Medical Decision Making Medical Records Medical records reviewed: Yes I reviewed the patient's medical records. Lab Data Lab results reviewed: Yes I reviewed the patient's lab results. Result diagrams: 02/05/21 14:41 02/05/21 14:41 Labs: Lab Results 02/05/21 02/05/21 02/05/21 Range/Units 14:41 14:41 14:41 WBC 12.1 H (4.8-10.8) X10*3/uL RBC 4.34 (4.20-5.50) X10*6/uL Hgb 11.8 L (12.0-16.0) g/dl Hct 38.3 (37-47) % MCV 88.2 (80-98) fL MCH 27.2 (27.0-33.0) pg MCHC 30.8 L (31.0-35.0) g/dl RDW 14.2 (11.0-16.0) % Plt Count 235 (160-400) X10*3/uL MPV 11.5 (9.4-12.3) fL Immature Gran % (Auto) 0.3 (0.0-0.4) % Neut % (Auto) 71.4 (45-73) % Lymph % (Auto) 21.8 (20-40) % Randall % (Auto) 4.1 (2-11) % Eos % (Auto) 2.2 (0-4) % Baso % (Auto) 0.2 (0-2) % Lymph # (Auto) 2.6 (1.2-4.9) X10*3/uL Randall # (Auto) 0.5 (0.1-1.2) X10*3/uL Eos # (Auto) 0.3 (0.0-0.4) X10*3/uL Baso # (Auto) 0.0 (0.0-0.2) X10*3/uL Abs Immat Gran (auto) 0.04 H (0.00-0.03) X10*3/uL Absolute Neuts (auto) 8.6 H (2.0-8.3) X10*3/uL Absolute Nucleated RBC 0.000 (0.0-0.012) X10*3/uL Nucleated RBC % (auto) 0.0 (0.0-0.2) /100WBC PT 11.4 (9.9-13.0) SEC INR 1.0 (0.9-1.1) Sodium 143 (135-145) mmol/L Potassium 3.9 (3.3-5.1) mmol/L Chloride 105 (96-108) mmol/L Carbon Dioxide 28 (22-29) mmol/L Anion Gap 14 (12-20) BUN 12 (9-16) mg/dL Creatinine 1.13 (0.5-1.4) mg/dL Estim Creat Clear Calc 47.8 Estimated GFR 47 Random Glucose 116 H (60-115) mg/dL Calcium 8.8 (8.4-10.2) mg/dL Magnesium 1.8 (1.6-2.6) mg/dL Total Bilirubin < 0.2 (0.0-1.0) mg/dL AST 19 (5-31) U/L ALT 18 (0-31) U/L Alkaline Phosphatase 44 (39-117) U/L Troponin I High Sens (<3.5-17.0) ng/L B-Natriuretic Peptide (<100) pg/mL Total Protein 6.5 (6.5-8.0) g/dL Albumin 3.8 (3.5-5.0) g/dL Urine Color Urine Appearance Urine pH (5.0-8.0) Ur Specific [place] (1.005-1.025) Urine Protein (NEG-TRACE) MG/DL Urine Glucose (UA) (NEG) MG/DL Urine Ketones (NEG) MG/DL Urine Blood (NEG) Urine Nitrite (NEG) Ur Leukocyte Esterase (NEG) Urine RBC (0) /HPF Urine WBC (0-4) /HPF Ur Squamous Epith Cells /LPF Urine Bacteria /LPF Urine Yeast /HPF Coronavirus (PCR) (Negative) Influenza Type A (PCR) (Negative) Influenza Type B (PCR) (Negative) RSV RNA Qual (PCR) (Negative) 02/05/21 02/05/21 02/05/21 Range/Units 14:41 14:41 14:42 WBC (4.8-10.8) X10*3/uL RBC (4.20-5.50) X10*6/uL Hgb (12.0-16.0) g/dl Hct (37-47) % MCV (80-98) fL MCH (27.0-33.0) pg MCHC (31.0-35.0) g/dl RDW (11.0-16.0) % Plt Count (160-400) X10*3/uL MPV (9.4-12.3) fL Immature Gran % (Auto) (0.0-0.4) % Neut % (Auto) (45-73) % Lymph % (Auto) (20-40) % Randall % (Auto) (2-11) % Eos % (Auto) (0-4) % Baso % (Auto) (0-2) % Lymph # (Auto) (1.2-4.9) X10*3/uL Randall # (Auto) (0.1-1.2) X10*3/uL Eos # (Auto) (0.0-0.4) X10*3/uL Baso # (Auto) (0.0-0.2) X10*3/uL Abs Immat Gran (auto) (0.00-0.03) X10*3/uL Absolute Neuts (auto) (2.0-8.3) X10*3/uL Absolute Nucleated RBC (0.0-0.012) X10*3/uL Nucleated RBC % (auto) (0.0-0.2) /100WBC PT (9.9-13.0) SEC INR (0.9-1.1) Sodium (135-145) mmol/L Potassium (3.3-5.1) mmol/L Chloride (96-108) mmol/L Carbon Dioxide (22-29) mmol/L Anion Gap (12-20) BUN (9-16) mg/dL Creatinine (0.5-1.4) mg/dL Estim Creat Clear Calc Estimated GFR Random Glucose (60-115) mg/dL Calcium (8.4-10.2) mg/dL Magnesium (1.6-2.6) mg/dL Total Bilirubin (0.0-1.0) mg/dL AST (5-31) U/L ALT (0-31) U/L Alkaline Phosphatase (39-117) U/L Troponin I High Sens 3.9 (<3.5-17.0) ng/L B-Natriuretic Peptide 10 (<100) pg/mL Total Protein (6.5-8.0) g/dL Albumin (3.5-5.0) g/dL Urine Color YELLOW Urine Appearance HAZY Urine pH 6.0 (5.0-8.0) Ur Specific [place] 1.025 (1.005-1.025) Urine Protein 1+ H (NEG-TRACE) MG/DL Urine Glucose (UA) NEG (NEG) MG/DL Urine Ketones NEG (NEG) MG/DL Urine Blood 3+ H (NEG) Urine Nitrite NEG (NEG) Ur Leukocyte Esterase NEG (NEG) Urine RBC 10-14 H (0) /HPF Urine WBC 0-2 (0-4) /HPF Ur Squamous Epith Cells 2+ /LPF Urine Bacteria TRACE /LPF Urine Yeast 2+ /HPF Coronavirus (PCR) NEGATIVE (Negative) Influenza Type A (PCR) NEGATIVE (Negative) Influenza Type B (PCR) NEGATIVE (Negative) RSV RNA Qual (PCR) NEGATIVE (Negative) Imaging Data Chest x-ray: Attestation: I personally reviewed and interpreted this imaging study as follows: Radiologist's impression: FINDINGS: The lungs are well-expanded and clear of acute pneumonic process. The heart size and pulmonary vascularity is normal. There is moderate spondylosis dorsal spine. No lytic process seen. XR/XR chest 1V IMPRESSION: Unremarkable chest exam. Mild cardiomegaly. Moderate spondylosis dorsal spine. Venous duplex ultrasound of lower extremities: Attestation: I personally reviewed and interpreted this imaging study as follows: Radiologist's impression: FINDINGS: RIGHT: There is normal venous compression and respiratory variation and augmented flow. The visualized common femoral vein, superficial femoral vein, profunda femoral vein, popliteal vein, and the trifurcation region shows no evidence of deep venous thrombosis. There is no significant popliteal fossa cyst. LEFT: There is normal venous compression and respiratory variation and augmented flow. The visualized common femoral vein, superficial femoral vein, profunda femoral vein, popliteal vein, and the trifurcation region shows no evidence of deep venous thrombosis. There is no significant popliteal fossa cyst. US/US venous duplex LE BI IMPRESSION: No DVT demonstrated in the bilateral lower extremity. ECG Data Attestation: I personally reviewed and interpreted this ECG as follows: Interpretation: - EKG normal sinus rhythm with ventricular of [address] abnormalities no acute ischemic changes are noted. Similar when compared to prior EKG 12/13/2020. Critical Care Time Critical Care Time Critical Care Time: Yes Total Critical Care Time: 60 Attestation: I personally attest to this time spent taking care of the patient Discharge Plan Discharge Clinical Impression: Bronchitis, COPD (chronic obstructive pulmonary disease), Chronic dyspnea, Bilateral wheezing, Acute bronchospasm Patient Disposition: Home, Self-Care Instructions: Acute Bronchitis (ED), COPD (Chronic Obstructive Pulmonary Disease) (ED) Additional Instructions: You are being prescribed steroids you are diabetic please monitor your blood glucose level more often because the steroids can increase your blood glucose levels. Please adjust her insulin level as needed. Return if any new or wo rsening symptoms follow-up with your primary care provider. Prescriptions: New (DME) AeroEclipse II Nebulizer Misc See Rx Instructions .ROUTE .MEDSUPPLY Qty: 1 RF: 0 albuterol sulfate 0.63 mg/3 mL solution for nebulization 0.63 mg inhalation QID PRN (Reason: shortness of breath or wheezing) Qty: 75 RF: 0 azithromycin 250 mg tablet See Rx Instructions .ROUTE .COMPLEX Qty: 6 RF: 0 codeine-guaifenesin [Guaifenesin AC] 10-100 mg/5 mL liquid 5 ml PO Q6H PRN (Reason: cold symptoms) Qty: 120 RF: 0 albuterol sulfate 90 mcg/actuation HFA aerosol inhaler 1 inh inhalation QID PRN (Reason: shortness of breath or wheezing) Qty: 8.5 RF: 0 prednisone 20 mg tablet 40 mg PO DAILY 5 Days Qty: 10 RF: 0 No Action (DME) Depend Underwear For Women S-M Misc See Rx Instructions .ROUTE .MEDSUPPLY Qty: 64 RF: 6 metformin 500 mg tablet 500 mg PO QAM 90 Days Qty: 90 RF: 0 fluticasone propionate 50 mcg/actuation spray,suspension 1 spray intranasal DAILY 30 Days Qty: 16 RF: 5 montelukast 10 mg tablet 10 mg PO BEDTIME 90 Days Qty: 90 RF: 0 albuterol sulfate [ProAir HFA] 90 mcg/actuation HFA aerosol inhaler 2 puff inhalation Q4-6H PRN (Reason: shortness of breath or wheezing) 30 Days Qty: 8.5 RF: 1 ropinirole 1 mg tablet 1 mg PO BID 30 Days Qty: 60 RF: 0 atorvastatin 80 mg tablet 80 mg PO DAILY Qty: 90 RF: 0 blood sugar diagnostic [FreeStyle Lite Strips] Strip See Rx Instructions .ROUTE TID Qty: 100 RF: 11 Levemir FlexTouch U-100 Insuln 100 unit/mL (3 mL) insulin pen 20 unit subcut QAM RF: 0 docusate sodium 100 mg Capsule 100 mg PO BID 30 Days Qty: 60 RF: 0 hyoscyamine sulfate 0.125 mg tablet 0.25 mg PO QID PRN (Reason: dyspepsia) Qty: 10 RF: 0 cefuroxime axetil 500 mg tablet 500 mg PO BID Qty: 20 RF: 0 gabapentin 300 mg capsule 900 mg PO BEDTIME RF: 0 azithromycin 250 mg tablet 250 mg PO ONCE 5 Days Qty: 6 RF: 0 trazodone 100 mg tablet 250 mg PO BEDTIME RF: 0 mirabegron 25 mg tablet extended release 24 hr 25 mg PO QAM RF: 0 bupropion HCl 150 mg tablet extended release 24 hr 150 mg PO QAM RF: 0 (DME) lancets 28 gauge misc See Rx Instructions ea topical TID Qty: 100 RF: 0 (DME) pen needle, diabetic 31 gauge x 3/16 needle See Rx Instructions ea subcut TID Qty: 50 RF: 0 (DME) oxygen-air delivery systems Device See Rx Instructions .ROUTE .MEDSUPPLY Qty: 1 RF: 0 gabapentin 300 mg capsule 300 mg PO DAILY RF: 0 aspirin [Adult Aspirin Regimen] 81 mg tablet,delayed release (DR/EC) 81 mg PO DAILY RF: 0 Hold Instructions: Resume on 06/15/20. Referrals: Shelbi Perez MD [Primary Care Provider] - 2 days Print Language: [place]
[2021-02-05 14:49] VITALS: BP 142/66; PULSE 82; RESP 13; O2SAT 99
[2021-02-05 14:49] LABS: Glucose Urine UA NEG (NEG); Leukocyte Esterase Urine NEG (NEG); Nitrite Urine NEG (NEG); Specific Gravity - Urine 1.025 (1.005-1.025); Urine Blood 3+ (NEG); Urine Ketones NEG (NEG); Urine Protein 1+ MG/DL (NEG-TRACE)
[2021-02-05 14:50] LABS: Appearance Urine HAZY; Color Urine YELLOW
--- NOTE | 2021-02-05 14:50 | PC.NURSE ---
new iv placed in R hand, line patent.
[2021-02-05 14:54] LABS: Prothrombin Time 11.4 SEC (9.9-13.0)
[2021-02-05 14:59] LABS: WBC Urine 0-2 /HPF (0-4)
[2021-02-05 15:00] LABS: Bacteria Urine TRACE /LPF; Squamous Epithelial Cell Urine 2+ /LPF
[2021-02-05 15:18] LABS: Alanine Aminotransferase 18 U/L (0-31); Albumin Level 3.8 g/dL (3.5-5.0); Alkaline Phosphatase 44 U/L (39-117); Anion Gap 14 (12-20); Aspartate Amino Transferase 19 U/L (5-31); Bilirubin Total < 0.2 mg/dL (0.0-1.0); Blood Urea Nitrogen 12 mg/dL (9-16); Calcium 8.8 mg/dL (8.4-10.2); Carbon Dioxide 28 mmol/L (22-29); Chloride 105 mmol/L (96-108); Creatinine Clr Calc Pharmacy 47.8; Estimated Glomerular Filt Rate 47; Glucose Random 116 mg/dL (60-115); Magnesium 1.8 mg/dL (1.6-2.6); Potassium 3.9 mmol/L (3.3-5.1); Sodium 143 mmol/L (135-145); Total Protein 6.5 g/dL (6.5-8.0)
[2021-02-05 15:20] LABS: B Type Natriuretic Peptide 10 pg/mL (<100); Troponin-I High Sensitivity 3.9 ng/L (<3.5-17.0)
[2021-02-05 15:26] LABS: Influenza A PCR NEGATIVE (Negative); Influenza B PCR NEGATIVE (Negative); Resp Syncy Virus RNA Qual PCR NEGATIVE (Negative); SARS COV2 PCR INHOUSE NEGATIVE (Negative)
--- NOTE | 2021-02-05 15:59 | PC.NURSE ---
Vera Respiratory Therapist was contacted by this medical writer, she will be down to ed to see pt shortly.
[2021-02-05 16:08] VITALS: PULSE 79; O2SAT 96
[2021-02-05] MEDS: Albuterol Sulfate (0.083%) 2.5 MG/3 ML VIAL.NEB 10 MG INHALE (16:12)
== END 2021-02-05 18:14 | disposition home or self-care (01) ==
PROVIDERS: Physician Assistant Medical; Emergency Provider Emergency Medicine Emergency Medical Services; PCP Internal Medicine
DX: J40 Bronchitis, not specified as acute or chronic (principal); J44.9 Chronic obstructive pulmonary disease, unspecified; R06.09 Other forms of dyspnea; J98.01 Acute bronchospasm; M79.661 Pain in right lower leg; R60.0 Localized edema; R06.02 Shortness of breath; R06.2 Wheezing; E78.5 Hyperlipidemia, unspecified; E11.9 Type 2 diabetes mellitus without complications; Z20.822 Contact with and (suspected) exposure to COVID-19; Z79.82 Long term (current) use of aspirin; Z79.02 Long term (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 antithrombotics/antiplatelets; Z79.84 Long term (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 oral hypoglycemic drugs; Z79.899 Other long term (current) drug therapy
CPT/HCPCS: 0241U; 36415; 71045; 80053; 81001; 83735; 83880; 84484; 85025; 85610; 93005; 93970; 94640; 96365; 96366; 96375; 99284; 99291; J2930; J3475; Q0163

== ENCOUNTER → 2021-02-21 11:22 | Outpatient (BNVA) | payer MEDICARE, MEDICAID, SELFPAY | PROVIDERS: PCP Internal Medicine; Visit Provider Internal Medicine | DX: G47.33 Obstructive sleep apnea (adult) (pediatric) (principal); E66.09 Other obesity due to excess calories; J98.4 Other disorders of lung; J30.9 Allergic rhinitis, unspecified | CPT/HCPCS: 99212 ==

== ENCOUNTER 2021-04-23 12:46 | Outpatient (REF) | payer MEDICARE, MEDICAID, SELFPAY ==
--- NOTE | ~2021-04-23 | XR_ITS ---
EXAMINATION: XR CHEST CLINICAL INFORMATION: Chronic obstructive pulmonary disease. COMPARISON: Most recent chest radiograph dated 02/05/2021. TECHNIQUE: 2 views of the chest were obtained. FINDINGS: Mild, unchanged chronic interstitial prominence. No new airspace consolidation. No pleural effusion or pneumothorax. Stable cardiomediastinal silhouette. No acute osseous abnormality. XR/XR chest 2V IMPRESSION: No acute cardiopulmonary findings.
== END 2021-04-23 12:47 | disposition home or self-care (01) ==
LOC: HO.XRAY 12:46
PROVIDERS: PCP Internal Medicine; Visit Provider Internal Medicine
DX: J44.1 Chronic obstructive pulmonary disease with (acute) exacerbation (principal); G47.33 Obstructive sleep apnea (adult) (pediatric); J98.4 Other disorders of lung; G47.34 Idiopathic sleep related nonobstructive alveolar hypoventilation
CPT/HCPCS: 71046; 99212

== ENCOUNTER → 2021-05-13 13:01 | Outpatient (BNVA) | payer MEDICARE, MEDICAID, SELFPAY | PROVIDERS: PCP Internal Medicine; Visit Provider Internal Medicine | DX: J44.1 Chronic obstructive pulmonary disease with (acute) exacerbation (principal); J98.4 Other disorders of lung; G47.33 Obstructive sleep apnea (adult) (pediatric); G47.34 Idiopathic sleep related nonobstructive alveolar hypoventilation; J30.9 Allergic rhinitis, unspecified; E66.09 Other obesity due to excess calories; Z68.42 Body mass index [BMI] 45.0-49.9, adult; Z71.3 Dietary counseling and surveillance; Z99.89 Dependence on other enabling machines and devices | CPT/HCPCS: 99212 ==

== ENCOUNTER 2021-06-26 11:00 | Outpatient (REF) | payer MEDICARE, MEDICAID, SELFPAY ==
[2021-06-26 14:07] LABS: Estimated Average Glucose 169 mg/dL; Hemoglobin A1c % 7.5 %
[2021-06-26 14:36] LABS: Alanine Aminotransferase 17 U/L (0-31); Albumin Level 4.1 g/dL (3.5-5.0); Alkaline Phosphatase 50 U/L (39-117); Anion Gap 17 (12-20); Aspartate Amino Transferase 21 U/L (5-31); Bilirubin Total 0.3 mg/dL (0.0-1.0); Blood Urea Nitrogen 18 mg/dL (9-16); Calcium 9.5 mg/dL (8.4-10.2); Carbon Dioxide 27 mmol/L (22-29); Chloride 102 mmol/L (96-108); Estimated Glomerular Filt Rate 32; Glucose Random 138 mg/dL (60-115); Potassium 4.1 mmol/L (3.3-5.1); Sodium 142 mmol/L (135-145); Total Protein 6.8 g/dL (6.5-8.0)
[2021-06-26 14:45] LABS: Creatinine Urine 95.35 mg/dL; Microalbum/Creatinine Ratio Ur 57.6 ug/mg cr
== END 2021-06-26 11:01 | disposition home or self-care (01) ==
LOC: HO.HMGCLDS 11:00
PROVIDERS: PCP Internal Medicine; Visit Provider Internal Medicine
DX: Z13.89 Encounter for screening for other disorder (principal)
CPT/HCPCS: 36415; 80053; 82043; 83036

== ENCOUNTER 2021-06-29 10:19 | Inpatient (IN) | payer MEDICARE, MEDICAID, SELFPAY ==
[2021-06-29] VITALS (9 sets, daily range): BP systolic 134–162; BP diastolic 58–84; PULSE 93–116; RESP 17–24; TEMP 36.8–37; O2SAT 94–99; BMI 47.0
--- NOTE | ~2021-06-29 | XR_ITS ---
EXAMINATION: XR CHEST CLINICAL INFORMATION: SOB COMPARISON: Chest 04/23/2021 TECHNIQUE: Frontal view of the chest was obtained. FINDINGS: The lungs are fairly well-expanded and clear of acute process. The heart size and pulmonary vascularity is normal. There is moderate spondylosis dorsal spine. No lytic process seen. XR/XR chest 1V IMPRESSION: Unremarkable chest exam. There is moderate spondylosis dorsal spine. No major change compared to 04/23/2021
--- NOTE | 2021-06-29 10:55 | ED.SOB ---
HPI - SOB/Dyspnea General Chief Complaint: Dyspnea Stated Complaint: DIFFICULTY BREATHING Time Seen by Provider: 06/29/21 10:41 Source: patient and EMS Mode of arrival: EMS Limitations: no limitations History of Present Illness HPI Narrative: 71-year-old female came in by ambulance for evaluation of shortness of breath. Patient with a history of COPD/restrictive lung disease, sleep apnea, for the past 3-4 days patient been having gradual worsening of difficulty breathing with dry nonproductive coughing, but no fever or chills. Patient also notice swelling in her lower extremities, patient sleeps on a recliner because cannot sleep in bed. Patient declined chest pain. Patient's symptoms is worsening with exertion. Nothing improves the patient's symptoms, described it as moderate in severity. Patient did not have symptoms like this in the past. Patient received her 3 COVID vaccination, with no exposure to sick contact, no recent travel, no prolonged immobilization. Related Data Home Medications Medication Instructions Recorded Confirmed bupropion HCl 150 mg 24 hr tablet, 150 mg PO QAM 04/25/20 06/29/21 extended release oxygen-air delivery systems #1 04/25/20 06/29/21 trazodone 100 mg tablet 250 mg PO BEDTIME 04/25/20 06/29/21 aspirin 81 mg tablet,delayed 81 mg PO DAILY 05/23/20 06/29/21 release (Adult Aspirin Regimen) gabapentin 300 mg capsule 900 mg PO BEDTIME cap 05/13/21 06/29/21 atorvastatin 80 mg tablet 80 mg PO BEDTIME 06/29/21 06/29/21 fluticasone propionate 50 1 spray INTRANASAL DAILY 06/29/21 06/29/21 mcg/actuation nasal spray,suspension gabapentin 300 mg capsule 300 mg PO DAILY 06/29/21 06/29/21 hydroxyzine pamoate 25 mg capsule 1 cap PO BID 06/29/21 06/29/21 metformin 500 mg tablet 500 mg PO DAILY 06/29/21 06/29/21 ropinirole 1 mg tablet 2 mg PO BID 06/29/21 06/29/21 Previous Rx's Medication Instructions Recorded nebulizers (AeroEclipse II #1 ea 02/05/21 Nebulizer) albuterol sulfate 0.63 mg/3 mL 0.63 mg (3 mL) INHALATION QID PRN 02/21/21 solution for nebulization #75 ml albuterol sulfate 90 mcg/actuation 2 puff INHALATION Q4-6H PRN 30 05/13/21 aerosol inhaler (ProAir HFA) Days #8.5 g insulin detemir U-100 100 unit/mL 20 unit (0.2 mL) SUBCUT QAM 90 06/24/21 (3 mL) subcutaneous pen (Levemir Days #18 ml FlexTouch U-100 Insulin) lancets 28 gauge #100 ea 06/24/21 montelukast 10 mg tablet 10 mg PO BEDTIME 90 Days #90 tab 06/24/21 diaper,brief,adult,disposable #64 ea 06/26/21 (Depend Underwear For Women S-M) lisinopril 5 mg tablet 5 mg PO DAILY 90 Days #90 tab 06/26/21 pen needle, diabetic 31 gauge x #100 ea 06/26/21 3/16 Allergies Allergy/AdvReac Type Severity Reaction Status Date / Time adhesive tape [ADHESIVE TAPE] Allergy Intermediate RASH Verified 06/26/21 10:38 trimethobenzamide Allergy Mild NAUSEA Verified 06/26/21 10:38 [From TIGAN] environmental Allergy Intermediate Nasal Uncoded 06/26/21 10:38 congestion Review of Systems Review of Systems: All other systems are reviewed and are negative Constitutional: Reports as per HPI and Reports no additional constitutional complaints Eyes: Reports as per HPI and Reports no additional eye complaints Reports system reviewed and no additional complaints, except as documented Cardiovascular: Reports as per HPI and Reports no additional cardiovascular complaints Respiratory: Reports as per HPI and Reports no additional respiratory complaints Gastrointestinal: Reports as per HPI and Reports no additional gastrointestinal complaints Genitourinary: Reports no additional female genitourinary complaints Musculoskeletal: Reports no additional musculoskeletal complaints Skin/Breast: Reports system reviewed and no additional complaints, except as docu Psychiatric: Reports no additional psychiatric complaints Endocrine: Reports no additional endocrine complaints Hematologic/Lymphatic: Reports no additional hematologic/lymphatic complaints Allergic/Immunologic: Reports no additional allergic/immunologic complaints Reports system reviewed and no additional complaints, except as documented and Reports Abnormal speech present [facility] Past Medical History Medical History Allergic rhinitis Arthritis Back pain Constipation due to opioid therapy COPD (chronic obstructive pulmonary disease) COPD (chronic obstructive pulmonary disease) COPD exacerbation CPAP (continuous positive airway pressure) dependence 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, managed as type 1 DMII (diabetes mellitus, type 2) Elevated cholesterol GERD (gastroesophageal reflux disease) History of adrenal adenoma History of diverticulitis History of restless legs syndrome Hx SBO Hyperlipidemia No family history of adverse response to anesthesia Nocturnal hypoxemia Obesity (BMI 30-39.9) ALDO (obstructive sleep apnea) ALDO (obstructive sleep apnea) Osteoarthritis of left knee Osteochondroma of left femur Restrictive airway disease Sleep apnea Wears dentures Wears glasses Surgical History H/O colonoscopy H/O excision of mass H/O exploratory laparotomy History of appendectomy History of arthroscopy of left knee History of cholecystectomy History of hysterectomy History of oophorectomy History of partial colectomy History of surgery Hx of cataract extraction Family History Family History Father HTN (hypertension) Diabetes mellitus Mother HTN (hypertension) Liver cancer Social History Social History Housing: Apartment Are you a primary customer care agent to a significant other at home: No Do you presently have visiting nurse or other home services: No Alcohol intake: never Patient Tobacco Use Status: Never used Tobacco Second Hand Smoke Exposure: Yes Use of substances other than those prescribed or required for medical reasons: No Advance Directives: No Advance Directives Information Provided: No service: No Current occupational status: unemployed Physical Exam Vital Signs: Vital Signs: Last Vital Signs Temp 98.3 F 06/29/21 10:38 Pulse 104 H 06/29/21 12:30 Resp 24 H 06/29/21 12:30 BP 157/84 H 06/29/21 12:30 Pulse Ox 94 06/29/21 12:30 Oxygen Flow Rate 2 06/29/21 10:38 BMI result Body Mass Index 47.0 Vital signs have been reviewed as appeared to be correct. Blood pressure normal. Heart rate normal. Respiration rate normal. Temperature normal. Oxygen saturation normal. Appearance: Alert. Oriented X3. No acute distress. Head: Normal external exam. Normocephalic. Atraumatic. No Hammer signs noted. No raccoon eyes noted Eyes: PERRLA. EOMI. Conjunctiva and sclera normal. Eyelids normal. ENT: TM's Normal. Pharynx normal. Uvula midline. Moist mucous membranes. No trismus noted. No drooling noted. No muffled voice noted. Neck: Normal inspection. Neck supple. FROM. No adenopathy. Thyroid Normal. No meningeal signs. No neck mass noted. CVS: Normal heart rate and rhythm. Heart sound normal. No murmurs noted. Pulses normal throughout. Respiratory: No respiratory distress. Diffuse bilateral expiratory wheezing with prolonged expiration, bilateral basal rales. Abdomen: Soft and nontender. Bowel sounds normal in all 4 quadrants. No distention noted. No organomegaly noted. No visible injury noted. Back: No CVA tenderness. Full range of motion noted. Skin: Skin warm and dry. Normal skin color. Normal skin turgor. No rashes/lesions/lacerations noted. Extremities: +2 bilateral lower extremity edema. Extremities exhibit normal range of motion. Extremities nontender. Neuro: Oriented X 3. Cranial nerve exam: II-XII are grossly intact No motor deficit. No sensory deficit. Reflexes normal. Course Course Course Narrative: Assessment and plan. 71-year-old female history of COPD, sleep apnea, use oxygen at home, came in for evaluation of COPD exacerbation, patient initially came in with difficulty breathing with widespread wheezing and prolonged expiration and bilateral lung rales with +2 edema bilaterally, patient partially improved with Solu-Medrol/magnesium and bronchodilator. Patient feels better but still with COPD exacerbation after the treatment. Patient will require admission. Patient with acute renal injury. Reevaluation(s) Reevaluation #1: IV fluid/antibiotic was ordered later after the x-ray was reported at 12:30 to ensure no other comorbidity i.e. congestive heart failure or volume overload due to acute renal injury. Time: 13:00 MDM - SOB/Dyspnea Medical Records Attestation: I reviewed the patient's medical records. Lab Data Attestation: I reviewed the patient's lab results. Result diagrams: 06/29/21 11:14 06/29/21 11:14 Labs: Lab Results 06/29/21 06/29/21 06/29/21 Range/Units 11:14 11:14 11:14 WBC 14.9 H (4.8-10.8) X10*3/uL RBC 3.71 L (4.20-5.50) X10*6/uL Hgb 10.8 L (12.0-16.0) g/dl Hct 33.6 L (37.0-47.0) % MCV 90.6 (80.0-98.0) fL MCH 29.1 (27.0-33.0) pg MCHC 32.1 (31.0-35.0) g/dl RDW 12.6 (11.0-16.0) % Plt Count 219 (160-400) X10*3/uL MPV 11.8 (9.4-12.3) fL Immature Gran % (Auto) 0.4 (0.0-0.4) % Neut % (Auto) 79.6 H (45-73) % Lymph % (Auto) 12.5 L (20-40) % Norton % (Auto) 6.1 (2-11) % Eos % (Auto) 1.3 (0-4) % Baso % (Auto) 0.1 (0-2) % Lymph # (Auto) 1.9 (1.2-4.9) X10*3/uL Norton # (Auto) 0.9 (0.1-1.2) X10*3/uL Eos # (Auto) 0.2 (0.0-0.4) X10*3/uL Baso # (Auto) 0.0 (0.0-0.2) X10*3/uL Abs Immat Gran (auto) 0.06 H (0.00-0.03) X10*3/uL Absolute Neuts (auto) 11.9 H (2.0-8.3) x10*3/uL Absolute Nucleated RBC 0.000 (0.0-0.012) X10*3/uL Nucleated RBC % (auto) 0.0 (0.0-0.2) /100WBC PT 12.3 (9.9-13.0) SEC INR 1.1 (0.9-1.1) APTT 33.2 (24.1-38.0) SEC Sodium 139 (135-145) mmol/L Potassium 4.4 (3.3-5.1) mmol/L Chloride 104 (96-108) mmol/L Carbon Dioxide 27 (22-29) mmol/L Anion Gap 12 (12-20) BUN 18 H (9-16) mg/dL Creatinine 1.57 H (0.5-1.4) mg/dL Estim Creat Clear Calc 36.8 Estimated GFR 32 Random Glucose 262 H (60-115) mg/dL Lactic Acid (0.5-2.0) mmol/L Calcium 8.8 D (8.4-10.2) mg/dL Total Bilirubin 0.4 (0.0-1.0) mg/dL Direct Bilirubin < 0.2 (0.0-0.5) mg/dL AST 19 (5-31) U/L ALT 18 (0-31) U/L Alkaline Phosphatase 41 (39-117) U/L Troponin I High Sens (<3.5-17.0) ng/L B-Natriuretic Peptide (<100) pg/mL Total Protein 6.1 L (6.5-8.0) g/dL Albumin 3.7 (3.5-5.0) g/dL Lipase 19 (8-78) U/L Urine Color Urine Appearance Urine pH (5.0-8.0) Ur Specific Oscar (1.005-1.025) Urine Protein (NEG-TRACE) MG/DL Urine Glucose (UA) (NEG) MG/DL Urine Ketones (NEG) MG/DL Urine Blood (NEG) Urine Nitrite (NEG) Ur Leukocyte Esterase (NEG) Urine RBC (0) /HPF Urine WBC (0-4) /HPF Ur Squamous Epith Cells /LPF Urine Bacteria /LPF Influenza Type A (PCR) (Negative) Influenza Type B (PCR) (Negative) RSV RNA Qual (PCR) (Negative) SARS-CoV-2 RNA (RT-PCR) (Negative) 06/29/21 06/29/21 06/29/21 Range/Units 11:14 11:14 11:14 WBC (4.8-10.8) X10*3/uL RBC (4.20-5.50) X10*6/uL Hgb (12.0-16.0) g/dl Hct (37.0-47.0) % MCV (80.0-98.0) fL MCH (27.0-33.0) pg MCHC (31.0-35.0) g/dl RDW (11.0-16.0) % Plt Count (160-400) X10*3/uL MPV (9.4-12.3) fL Immature Gran % (Auto) (0.0-0.4) % Neut % (Auto) (45-73) % Lymph % (Auto) (20-40) % Norton % (Auto) (2-11) % Eos % (Auto) (0-4) % Baso % (Auto) (0-2) % Lymph # (Auto) (1.2-4.9) X10*3/uL Norton # (Auto) (0.1-1.2) X10*3/uL Eos # (Auto) (0.0-0.4) X10*3/uL Baso # (Auto) (0.0-0.2) X10*3/uL Abs Immat Gran (auto) (0.00-0.03) X10*3/uL Absolute Neuts (auto) (2.0-8.3) x10*3/uL Absolute Nucleated RBC (0.0-0.012) X10*3/uL Nucleated RBC % (auto) (0.0-0.2) /100WBC PT (9.9-13.0) SEC INR (0.9-1.1) APTT (24.1-38.0) SEC Sodium (135-145) mmol/L Potassium (3.3-5.1) mmol/L Chloride (96-108) mmol/L Carbon Dioxide (22-29) mmol/L Anion Gap (12-20) BUN (9-16) mg/dL Creatinine (0.5-1.4) mg/dL Estim Creat Clear Calc Estimated GFR Random Glucose (60-115) mg/dL Lactic Acid 1.2 (0.5-2.0) mmol/L Calcium (8.4-10.2) mg/dL Total Bilirubin (0.0-1.0) mg/dL Direct Bilirubin (0.0-0.5) mg/dL AST (5-31) U/L ALT (0-31) U/L Alkaline Phosphatase (39-117) U/L Troponin I High Sens 5.7 (<3.5-17.0) ng/L B-Natriuretic Peptide < 10 (<100) pg/mL Total Protein (6.5-8.0) g/dL Albumin (3.5-5.0) g/dL Lipase (8-78) U/L Urine Color Urine Appearance Urine pH (5.0-8.0) Ur Specific Oscar (1.005-1.025) Urine Protein (NEG-TRACE) MG/DL Urine Glucose (UA) (NEG) MG/DL Urine Ketones (NEG) MG/DL Urine Blood (NEG) Urine Nitrite (NEG) Ur Leukocyte Esterase (NEG) Urine RBC (0) /HPF Urine WBC (0-4) /HPF Ur Squamous Epith Cells /LPF Urine Bacteria /LPF Influenza Type A (PCR) NEGATIVE (Negative) Influenza Type B (PCR) NEGATIVE (Negative) RSV RNA Qual (PCR) NEGATIVE (Negative) SARS-CoV-2 RNA (RT-PCR) NEGATIVE (Negative) 06/29/21 Range/Units 11:14 WBC (4.8-10.8) X10*3/uL RBC (4.20-5.50) X10*6/uL Hgb (12.0-16.0) g/dl Hct (37.0-47.0) % MCV (80.0-98.0) fL MCH (27.0-33.0) pg MCHC (31.0-35.0) g/dl RDW (11.0-16.0) % Plt Count (160-400) X10*3/uL MPV (9.4-12.3) fL Immature Gran % (Auto) (0.0-0.4) % Neut % (Auto) (45-73) % Lymph % (Auto) (20-40) % Norton % (Auto) (2-11) % Eos % (Auto) (0-4) % Baso % (Auto) (0-2) % Lymph # (Auto) (1.2-4.9) X10*3/uL Norton # (Auto) (0.1-1.2) X10*3/uL Eos # (Auto) (0.0-0.4) X10*3/uL Baso # (Auto) (0.0-0.2) X10*3/uL Abs Immat Gran (auto) (0.00-0.03) X10*3/uL Absolute Neuts (auto) (2.0-8.3) x10*3/uL Absolute Nucleated RBC (0.0-0.012) X10*3/uL Nucleated RBC % (auto) (0.0-0.2) /100WBC PT (9.9-13.0) SEC INR (0.9-1.1) APTT (24.1-38.0) SEC Sodium (135-145) mmol/L Potassium (3.3-5.1) mmol/L Chloride (96-108) mmol/L Carbon Dioxide (22-29) mmol/L Anion Gap (12-20) BUN (9-16) mg/dL Creatinine (0.5-1.4) mg/dL Estim Creat Clear Calc Estimated GFR Random Glucose (60-115) mg/dL Lactic Acid (0.5-2.0) mmol/L Calcium (8.4-10.2) mg/dL Total Bilirubin (0.0-1.0) mg/dL Direct Bilirubin (0.0-0.5) mg/dL AST (5-31) U/L ALT (0-31) U/L Alkaline Phosphatase (39-117) U/L Troponin I High Sens (<3.5-17.0) ng/L B-Natriuretic Peptide (<100) pg/mL Total Protein (6.5-8.0) g/dL Albumin (3.5-5.0) g/dL Lipase (8-78) U/L Urine Color YELLOW Urine Appearance HAZY Urine pH 6.0 (5.0-8.0) Ur Specific Oscar 1.020 (1.005-1.025) Urine Protein NEG (NEG-TRACE) MG/DL Urine Glucose (UA) 100 H (NEG) MG/DL Urine Ketones NEG (NEG) MG/DL Urine Blood 3+ H (NEG) Urine Nitrite POS H (NEG) Ur Leukocyte Esterase TRACE H (NEG) Urine RBC 15-29 H (0) /HPF Urine WBC 15-29 H (0-4) /HPF Ur Squamous Epith Cells 2+ /LPF Urine Bacteria 3+ /LPF Influenza Type A (PCR) (Negative) Influenza Type B (PCR) (Negative) RSV RNA Qual (PCR) (Negative) SARS-CoV-2 RNA (RT-PCR) (Negative) Imaging Data Chest x-ray: Attestation: I personally reviewed and interpreted this imaging study as follows: Radiologist's impression: Unremarkable chest exam. Discharge Plan Discharge Clinical Impression: COPD exacerbation, Acute kidney injury Patient Disposition: Admitted As Inpatient
[2021-06-29 11:22] LABS: MANUAL DIFF FLAG NO
[2021-06-29 11:23] LABS: Basophils Percent Auto 0.1 % (0-2); Eosinophils Absolute Auto 0.2 X10*3/uL (0.0-0.4); Eosinophils Percent Auto 1.3 % (0-4); Hematocrit 33.6 % (37.0-47.0); Hemoglobin 10.8 g/dl (12.0-16.0); Imm Gran Abs Auto 0.06 X10*3/uL (0.00-0.03); Imm Gran Pct Auto 0.4 % (0.0-0.4); Lymphocytes Absolute Auto 1.9 X10*3/uL (1.2-4.9); Lymphocytes Percent Auto 12.5 % (20-40); Mean Corpuscular HGB Conc 32.1 g/dl (31.0-35.0); Mean Corpuscular Hemoglobin 29.1 pg (27.0-33.0); Mean Corpuscular Volume 90.6 fL (80.0-98.0); Mean Platelet Volume 11.8 fL (9.4-12.3); Monocytes Absolute Auto 0.9 X10*3/uL (0.1-1.2); Monocytes Percent Auto 6.1 % (2-11); Neutrophils Absolute Auto 11.9 x10*3/uL (2.0-8.3); Neutrophils Percent Auto 79.6 % (45-73); Platelet Count 219 X10*3/uL (160-400); Red Blood Count 3.71 X10*6/uL (4.20-5.50); Red Cell Distribution Width 12.6 % (11.0-16.0); White Blood Count 14.9 X10*3/uL (4.8-10.8)
[2021-06-29 11:29] LABS: INTERNATIONAL NORM RATIO 1.1 (0.9-1.1); Prothrombin Time 12.3 SEC (9.9-13.0)
[2021-06-29 11:31] LABS: Appearance Urine HAZY; Color Urine YELLOW; Glucose Urine UA 100 MG/DL (NEG); Leukocyte Esterase Urine TRACE (NEG); Nitrite Urine POS (NEG); UACC Culture Trigger YES; Urine Blood 3+ (NEG); Urine Ketones NEG (NEG); Urine Protein NEG (NEG-TRACE)
[2021-06-29 11:32] LABS: Partial Thromboplastin Time 33.2 SEC (24.1-38.0)
[2021-06-29 11:33] LABS: Lactic Acid 1.2 mmol/L (0.5-2.0)
[2021-06-29 11:37] LABS: Bacteria Urine 3+ /LPF; Squamous Epithelial Cell Urine 2+ /LPF
[2021-06-29 11:41] LABS: Alanine Aminotransferase 18 U/L (0-31); Albumin Level 3.7 g/dL (3.5-5.0); Alkaline Phosphatase 41 U/L (39-117); Anion Gap 12 (12-20); Aspartate Amino Transferase 19 U/L (5-31); Bilirubin Direct < 0.2 mg/dL (0.0-0.5); Bilirubin Total 0.4 mg/dL (0.0-1.0); Blood Urea Nitrogen 18 mg/dL (9-16); Calcium 8.8 mg/dL (8.4-10.2); Carbon Dioxide 27 mmol/L (22-29); Chloride 104 mmol/L (96-108); Creatinine Clr Calc Pharmacy 36.8; Estimated Glomerular Filt Rate 32; Glucose Random 262 mg/dL (60-115); Lipase 19 U/L (8-78); Potassium 4.4 mmol/L (3.3-5.1); Sodium 139 mmol/L (135-145); Total Protein 6.1 g/dL (6.5-8.0)
[2021-06-29 11:45] LABS: B Type Natriuretic Peptide < 10 pg/mL (<100); Troponin-I High Sensitivity 5.7 ng/L (<3.5-17.0)
[2021-06-29 12:02] LABS: Influenza A PCR NEGATIVE (Negative); Influenza B PCR NEGATIVE (Negative); Resp Syncy Virus RNA Qual PCR NEGATIVE (Negative); SARS COV2 PCR INHOUSE NEGATIVE (Negative)
[2021-06-29] MEDS: Albuterol/Iprat 2.5/0.5MG 3 ML AMPUL.NEB INHALE ×2 (12:18→20:24)
[2021-06-29] MEDS: Albuterol Sulfate (0.083%) 2.5 MG/3 ML VIAL.NEB INHALE (12:18)
[2021-06-29] MEDS: methylPREDNISolone Sod Succ 125 MG/2 ML VIAL IVPUSH (12:23)
--- NOTE | 2021-06-29 12:25 | PC.NURSE ---
Receiving updraft at this time, no visible SOB noted however pt sounds congested with exp wheezing throughout
--- NOTE | 2021-06-29 14:21 | P.HPHOSP_ITS ---
History of Present Illness Date of Service: 06/29/21 <EDMUND March - Last Filed: 06/29/21 14:39> Attending physician on admission: Russell Diaz <EDMUND March - Last Filed: 06/29/21 14:39> Chief Complaint: cough <EDMUND March - Last Filed: 06/29/21 14:39> This is a 71 female with history chronic respiratory failure / COPD who presents to the emergency department cough. Patient reports 5 days increasing shortness breath especially with exertion. This has been associated with a cough productive of thick phlegm. She denies any associated fever, chills, recent sick contacts. In the emergency department she was noted to be tachypneic on arrival. Workup was significant for leukocytosis of 14.9 as well as elevated creatinine of 1.57. Chest x-ray showed no evidence of pneumonia. COVID, flu, RSV screen were negative. She received multiple updraft treatments as well as systemic steroids but continued to be tachypneic and continued to wheeze therefore the decision was made to admit her for further management. <EDMUND March - Last Filed: 06/29/21 14:39> Review of Systems Review of Systems: Yes all other systems are reviewed and are negative <EDMUND March - Last Filed: 06/29/21 14:39> Constitutional: Constitutional: Denies chills and Denies fever(s) <EDMUND March - Last Filed: 06/29/21 14:39> Cardiovascular: Cardiovascular: Denies chest pain and Reports dyspnea <EDMUND March - Last Filed: 06/29/21 14:39> Respiratory: Respiratory: Reports cough, Reports excessive phlegm production and Reports dyspnea <EDMUND March Last Filed: 06/29/21 14:39> Gastrointestinal: Gastrointestinal: Denies abdominal pain <EDMUND March - Last Filed: 06/29/21 14:39> [facility] Medical History: Medical History Allergic rhinitis Arthritis Back pain Constipation due to opioid therapy COPD (chronic obstructive pulmonary disease) COPD (chronic obstructive pulmonary disease) COPD exacerbation CPAP (continuous positive airway pressure) dependence 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, managed as type 1 DMII (diabetes mellitus, type 2) Elevated cholesterol GERD (gastroesophageal reflux disease) History of adrenal adenoma History of diverticulitis History of restless legs syndrome Hx SBO Hyperlipidemia No family history of adverse response to anesthesia Nocturnal hypoxemia Obesity (BMI 30-39.9) ALDO (obstructive sleep apnea) ALDO (obstructive sleep apnea) Osteoarthritis of left knee Osteochondroma of left femur Restrictive airway disease Sleep apnea Wears dentures Wears glasses <EDMUND March - Last Filed: 06/29/21 14:39> Family History: Family History Father HTN (hypertension) Diabetes mellitus Mother HTN (hypertension) Liver cancer <EDMUND March - Last Filed: 06/29/21 14:39> Surgical History: Surgical History H/O colonoscopy H/O excision of mass H/O exploratory laparotomy History of appendectomy History of arthroscopy of left knee History of cholecystectomy History of hysterectomy History of oophorectomy History of partial colectomy History of surgery Hx of cataract extraction <EDMUND March - Last Filed: 06/29/21 14:39> Social History: Social History 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: Other 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 Other:: ex Housing: Apartment Are you a primary customer care specialist to a significant other at home: No Do you presently have visiting nurse or other home services: No Alcohol intake: never Patient Tobacco Use Status: Never used Tobacco Second Hand Smoke Exposure: Yes service: No Current occupational status: unemployed <EDMUND March - Last Filed: 06/29/21 14:39> Meds Allergies/Adverse reactions: Allergies Allergy/AdvReac Type Severity Reaction Status Date / Time adhesive tape [ADHESIVE TAPE] Allergy Intermediate RASH Verified 06/26/21 10:38 trimethobenzamide Allergy Mild NAUSEA Verified 06/26/21 10:38 [From TIGAN] environmental Allergy Intermediate Nasal Uncoded 06/26/21 10:38 congestion <EDMUND March - Last Filed: 06/29/21 14:39> Active Medications: Current Medications Acetaminophen (Acetaminophen 325 Mg Tablet) 650 mg PO Q6H PRN PRN Reason: Pain, Mild (Pain Scale 1-3) Albuterol/Ipratropium (Albuterol/Iprat 2.5/0.5mg 3 Ml Ampul.Neb) 3 ml INHALE RQ6H WHILE AWAKE RANGEL Albuterol/Ipratropium (Albuterol/Iprat 2.5/0.5mg 3 Ml Ampul.Neb) 3 ml INHALE RQ4H PRN PRN Reason: shorntess of breath/wheezing Aspirin (Aspirin Enteric Coated 81 Mg Tablet.Dr) 81 mg PO DAILY RANGEL Atorvastatin Calcium (Atorvastatin Calcium 80 Mg Tablet) 80 mg PO BEDTIME RANGEL Bupropion HCl (Bupropion Hcl Xl 150 Mg Tab.Er.24h) 150 mg PO QAM RANGEL Dextrose (Dextrose 50 % 25 Gm/50 Ml Vial) 25 gm IVPUSH Q15M PRN; Protocol PRN Reason: per Hypoglycemia Standing Ord. Docusate Sodium (Docusate Sodium 100 Mg Capsule) 100 mg PO DAILY PRN PRN Reason: Constipation Fluticasone Propionate (Fluticasone Propionate Nasal 16 Gm [place]) 1 spray NOSTRIL-B DAILY [facility] Gabapentin (Gabapentin 300 Mg Capsule) 300 mg PO DAILY RANGEL Gabapentin (Gabapentin 300 Mg Capsule) 900 mg PO BEDTIME RANGEL Glucose (Glucose Gel 15 Gm Gel..Gram.) 15 gm PO Q15M PRN; Protocol PRN Reason: per Hypoglycemia Standing Ord. Heparin Sodium (Porcine) (Heparin Sodium,Porcine 5,000 Unit/Ml Vial) 5,000 unit SUBCUT Q12H [facility] Hydroxyzine HCl (Hydroxyzine Hcl 25 Mg Tablet) 25 mg PO BID [facility] Sodium Chloride (Ns) 1,000 mls @ 999 mls/hr IVCONT .Q1H1M RANGEL Stop: 06/29/21 15:00 Ceftriaxone Sodium 1 gm/ (Sodium Chloride) 50 mls @ 100 mls/hr IV ONCE ONE Stop: 06/29/21 14:25 Insulin Human Lispro (Insulin Lispro 100 Unit/Ml 3 Ml Vial) 0 unit SUBCUT QIDACHS RANGEL; Protocol Methylprednisolone Sodium Succinate (Methylprednisolone Sod Succ 40 Mg/Ml Vial) 40 mg IVPUSH BID [facility] Montelukast Sodium (Montelukast Sodium 10 Mg Tablet) 10 mg PO BEDTIME [facility] Non-Formulary Medication (Insulin Detemir U-100 [Levemir Flextouch U-100 Insuln]) 20 unit SUBCUT QAM [facility] Ondansetron HCl (Ondansetron Hcl 4 Mg/2 Ml Vial) 4 mg IVPUSH Q8H PRN PRN Reason: Nausea and Vomiting Pharmacy Consult (Consult Rx Perform Med Rec) 1 each MISCELLANE ONCE PRN PRN Reason: Consult order Ropinirole HCl (Ropinirole Hcl 1 Mg Tablet) 2 mg PO BID [facility] Sodium Chloride (0.9 % Sodium Chloride Flush 3 Ml Syringe) 3 ml IVFLUSH QSHIFT RANGEL Trazodone HCl (Trazodone Hcl 50 Mg Tablet) 250 mg PO BEDTIME [facility] <EDMUND March - Last Filed: 06/29/21 14:39> Home medications: Home Medications Medication Instructions Recorded Confirmed Last Taken Type bupropion HCl 150 mg 24 hr tablet, 150 mg PO QAM 04/25/20 06/29/21 06/29/21 History extended release oxygen-air delivery systems #1 04/25/20 06/29/21 Unknown History trazodone 100 mg tablet 250 mg PO BEDTIME 04/25/20 06/29/21 06/28/21 History aspirin 81 mg tablet,delayed 81 mg PO DAILY 05/23/20 06/29/21 06/29/21 History release (Adult Aspirin Regimen) gabapentin 300 mg capsule 900 mg PO BEDTIME cap 05/13/21 06/29/21 06/28/21 History atorvastatin 80 mg tablet 80 mg PO BEDTIME 06/29/21 06/29/21 06/28/21 History fluticasone propionate 50 1 spray INTRANASAL DAILY 06/29/21 06/29/21 06/29/21 History mcg/actuation nasal spray,suspension gabapentin 300 mg capsule 300 mg PO DAILY 06/29/21 06/29/21 06/29/21 History hydroxyzine pamoate 25 mg capsule 1 cap PO BID 06/29/21 06/29/21 06/29/21 History metformin 500 mg tablet 500 mg PO DAILY 06/29/21 06/29/21 06/29/21 History ropinirole 1 mg tablet 2 mg PO BID 06/29/21 06/29/21 06/28/21 History <EDMUND March - Last Filed: 06/29/21 14:39> Physical Exam Vital Signs and Narrative: Vital Signs: Last Vital Signs Temp 98.3 F 06/29/21 10:38 Pulse 104 H 06/29/21 12:30 Resp 24 H 06/29/21 12:30 BP 157/84 H 06/29/21 12:30 Pulse Ox 94 06/29/21 12:30 Oxygen Flow Rate 2 06/29/21 10:38 BMI result Body Mass Index 47.0 <EDMUND March - Last Filed: 06/29/21 14:39> Const: General: comfortable, alert and awake <EDMUND March - Last Filed: 06/29/21 14:39> Nutritional Appearance: obese <EDMUND March - Last Filed: 06/29/21 14:39> Orientation/consciousness: patient oriented x3 <EDMUND March - Last Filed: 06/29/21 14:39> HENMT: Head: Yes normocephalic and Yes atraumatic <EDMUND March - Last Filed: 06/29/21 14:39> Eyes: Sclerae: sclerae normal <EDMUND March - Last Filed: 06/29/21 14:39> Resp: Other: Bilateral expiratory wheezing and rhonchi <EDMUND March - Last Filed: 06/29/21 14:39> Cardio: Rate: regular rate <EDMUND March - Last Filed: 06/29/21 14:39> Rhythm: regular rhythm <EDMUND March - Last Filed: 06/29/21 14:39> GI: Palpation (GI): Soft to palpation and nontender <EDMUND March - Last Filed: 06/29/21 14:39> Neuro: General: patient oriented x3 <EDMUND March - Last Filed: 06/29/21 14:39> Cranial nerves: Yes CN's II-XII intact bilaterally and Yes Bilaterally intact EOM present <EDMUND March - Last Filed: 06/29/21 14:39> Extrem: Other: able to move all 4 extremities spontaneously. There is no lower extremity edema <EDMUND March - Last Filed: 06/29/21 14:39> Results Labs CBC and Chem 7: : 07/01/21 08:14 07/01/21 04:13 <EDMUND March - Last Filed: 06/29/21 14:39> Labs: Laboratory Results - last 24 hr 06/29/21 06/29/21 06/29/21 11:14 11:14 11:14 MCV 90.6 MCH 29.1 MCHC 32.1 RDW 12.6 Plt Count 219 MPV 11.8 Immature Gran % (Auto) 0.4 Neut % (Auto) 79.6 H Lymph % (Auto) 12.5 L Power % (Auto) 6.1 Eos % (Auto) 1.3 Baso % (Auto) 0.1 Lymph # (Auto) 1.9 Power # (Auto) 0.9 Eos # (Auto) 0.2 Baso # (Auto) 0.0 Abs Immat Gran (auto) 0.06 H Absolute Neuts (auto) 11.9 H Absolute Nucleated RBC 0.000 Nucleated RBC % (auto) 0.0 PT 12.3 INR 1.1 APTT 33.2 Anion Gap 12 Estim Creat Clear Calc 36.8 Estimated GFR 32 Random Glucose 262 H Lactic Acid Calcium 8.8 D Total Bilirubin 0.4 Direct Bilirubin < 0.2 AST 19 ALT 18 Alkaline Phosphatase 41 Troponin I High Sens B-Natriuretic Peptide Total Protein 6.1 L Albumin 3.7 Lipase 19 Urine Color Urine Appearance Urine pH Ur Specific [place] Urine Protein Urine Glucose (UA) Urine Ketones Urine Blood Urine Nitrite Ur Leukocyte Esterase Urine RBC Urine WBC Ur Squamous Epith Cells Urine Bacteria Influenza Type A (PCR) Influenza Type B (PCR) RSV RNA Qual (PCR) SARS-CoV-2 RNA (RT-PCR) 06/29/21 06/29/21 06/29/21 11:14 11:14 11:14 MCV MCH MCHC RDW Plt Count MPV Immature Gran % (Auto) Neut % (Auto) Lymph % (Auto) Power % (Auto) Eos % (Auto) Baso % (Auto) Lymph # (Auto) Power # (Auto) Eos # (Auto) Baso # (Auto) Abs Immat Gran (auto) Absolute Neuts (auto) Absolute Nucleated RBC Nucleated RBC % (auto) PT INR APTT Anion Gap Estim Creat Clear Calc Estimated GFR Random Glucose Lactic Acid 1.2 Calcium Total Bilirubin Direct Bilirubin AST ALT Alkaline Phosphatase Troponin I High Sens 5.7 B-Natriuretic Peptide < 10 Total Protein Albumin Lipase Urine Color Urine Appearance Urine pH Ur Specific [place] Urine Protein Urine Glucose (UA) Urine Ketones Urine Blood Urine Nitrite Ur Leukocyte Esterase Urine RBC Urine WBC Ur Squamous Epith Cells Urine Bacteria Influenza Type A (PCR) NEGATIVE Influenza Type B (PCR) NEGATIVE RSV RNA Qual (PCR) NEGATIVE SARS-CoV-2 RNA (RT-PCR) NEGATIVE 06/29/21 11:14 MCV MCH MCHC RDW Plt Count MPV Immature Gran % (Auto) Neut % (Auto) Lymph % (Auto) Power % (Auto) Eos % (Auto) Baso % (Auto) Lymph # (Auto) Power # (Auto) Eos # (Auto) Baso # (Auto) Abs Immat Gran (auto) Absolute Neuts (auto) Absolute Nucleated RBC Nucleated RBC % (auto) PT INR APTT Anion Gap Estim Creat Clear Calc Estimated GFR Random Glucose Lactic Acid Calcium Total Bilirubin Direct Bilirubin AST ALT Alkaline Phosphatase Troponin I High Sens B-Natriuretic Peptide Total Protein Albumin Lipase Urine Color YELLOW Urine Appearance HAZY Urine pH 6.0 Ur Specific [place] 1.020 Urine Protein NEG Urine Glucose (UA) 100 H Urine Ketones NEG Urine Blood 3+ H Urine Nitrite POS H Ur Leukocyte Esterase TRACE H Urine RBC 15-29 H Urine WBC 15-29 H Ur Squamous Epith Cells 2+ Urine Bacteria 3+ Influenza Type A (PCR) Influenza Type B (PCR) RSV RNA Qual (PCR) SARS-CoV-2 RNA (RT-PCR) <EDMUND March - Last Filed: 06/29/21 14:39> Imaging Radiologist's Impressions: Impressions Chest X-Ray 06/29/21 12:05 IMPRESSION: Unremarkable chest exam. There is moderate spondylosis dorsal spine. No major change compared to 04/23/2021 <EDMUND March - Last Filed: 06/29/21 14:39> Assessment and Plan (1) Acute kidney injury: Status: Acute <EDMUND March - Last Filed: 06/29/21 14:39> (2) COPD exacerbation: Status: Acute <EDMUND March - Last Filed: 06/29/21 14:39> this is a 71 old female with history COPD /chronic respiratory failure on 2 L of home oxygen, morbid obesity, hypoventilation, diabetes presents to the emergency department with 5 day history of increasing shortness of breath on exertion and productive cough acute COPD exacerbation/ chronic respiratory failure currently maintaining saturations in the mid 90s on baseline oxygen scheduled and p.r.n. breathing treatments IV Solu-Medrol given increase in cough and purulent sputum production, will start azithromycin AGUSTIN on CKD3 SCr today 1.57 (1.60 on 06/26 when routine labs were drawn and was increased from baseline and pcp was planning on repeating labs) hold lisinopril follow renal function daily DM will convert home dose of Levimir to Lantus hold metformin SSI, POCs, ADA diet HLD continue HLD mood continue bupropion, hydroxizine RLS continue ropinerole, gabapentin dvt ppx - heparin hcp - son code status - Full code attending - dr. diaz <EDMUND March - Last Filed: 06/29/21 14:39> Quality Stroke Does the patient have a stroke diagnosis?: No <EDMUND March - Last Filed: 06/29/21 14:39> VTE Prior VTE?: No <EDMUND March - Last Filed: 06/29/21 14:39> VTE Risk Level:: Medical - moderate - high <EDMUND March - Last Filed: 06/29/21 14:39> VTE Device Contraindication: N/A - Device Ordered <EDMUND March - Last Filed: 06/29/21 14:39> VTE Drug Contraindication: N/A - Med Ordered <EDMUND March - Last Filed: 06/29/21 14:39>
[2021-06-29] MEDS: cefTRIAXone sodium 1 GM in 0.9 % Sodium Chloride 50 ML IV (14:34)
[2021-06-29] MEDS: 0.9 % Sodium Chloride 1,000 ML 999 ML IVCONT (14:36)
[2021-06-29] MEDS: Heparin Sodium,Porcine 5,000 UNIT/ML VIAL 5000 UNIT SUBCUT (14:36)
--- NOTE | 2021-06-29 15:08 | PM.EVENT ---
Event Note Date of Service: 06/29/21 Event Note: This patient is seen and examined with APC. Patient came with shortness of breath and cough with phlegm for 3-4days duration, ?Workup was significant for leukocytosis of 14.9 as well as elevated creatinine of 1.57.? Chest x-ray showed no evidence of pneumonia.? COVID, flu, RSV screen were negative. ED admission given for COPD exacerbation: Lab imaging reviewed- As above. Physical exam: Please see H&P chest: Has bilateral wheezing. assessment and plan coordinated in APCs note, Agree with the plan in addition: COPD exacerbation: Started on nebs, steroids, antibiotics, oxygen support continue to monitor.
[2021-06-29] MEDS: Azithromycin 500 MG in 0.9 % Sodium Chloride 250 ML 125 MG IV (15:50)
[2021-06-29] MEDS: Insulin Lispro 100 UNIT/ML 3 ML VIAL SUBCUT ×2 (16:26→21:44)
[2021-06-29 16:30] LABS: Glucose, Whole Blood 284 mg/dL (60-115)
[2021-06-29 20:45] LABS: Glucose, Whole Blood 321 mg/dL (60-115)
[2021-06-29] MEDS: traZODone HCL 50 MG TABLET 250 MG PO (21:37)
[2021-06-29] MEDS: methylPREDNISolone Sod Succ 40 MG/ML VIAL IVPUSH (21:37)
[2021-06-29] MEDS: Montelukast Sodium 10 MG TABLET PO (21:38)
[2021-06-29] MEDS: Atorvastatin Calcium 80 MG TABLET PO (21:38)
[2021-06-29] MEDS: hydrOXYzine HCL 25 MG TABLET PO (21:38)
[2021-06-29] MEDS: Gabapentin 300 MG CAPSULE PO (21:39)
[2021-06-29] MEDS: rOPINIRole HCL 2 MG TABLET PO (21:39)
[2021-06-29] MEDS: Gabapentin 300 MG CAPSULE 900 MG PO (21:44)
[2021-06-30] VITALS (7 sets, daily range): BP systolic 117–189; BP diastolic 50–78; PULSE 79–100; RESP 17–19; TEMP 36.3–37; O2SAT 93–97
[2021-06-30] MEDS: Heparin Sodium,Porcine 5,000 UNIT/ML VIAL 5000 UNIT SUBCUT ×2 (01:13→12:38)
[2021-06-30] MEDS: 0.9 % Sodium Chloride Flush 3 ML SYRINGE IVFLUSH ×3 (01:13→15:45)
[2021-06-30] MEDS: guaiFENesin DM 100/10/5 ML 5 ML SYRUP PO ×2 (01:49→09:23)
[2021-06-30 06:12] LABS: MANUAL DIFF FLAG NO
[2021-06-30 06:15] LABS: Basophils Percent Auto 0.1 % (0-2); Hematocrit 32.1 % (37.0-47.0); Hemoglobin 10.2 g/dl (12.0-16.0); Imm Gran Abs Auto 0.08 X10*3/uL (0.00-0.03); Imm Gran Pct Auto 0.5 % (0.0-0.4); Lymphocytes Absolute Auto 1.2 X10*3/uL (1.2-4.9); Lymphocytes Percent Auto 8.4 % (20-40); Mean Corpuscular HGB Conc 31.8 g/dl (31.0-35.0); Mean Corpuscular Volume 91.2 fL (80.0-98.0); Mean Platelet Volume 11.8 fL (9.4-12.3); Monocytes Absolute Auto 0.3 X10*3/uL (0.1-1.2); Monocytes Percent Auto 2.1 % (2-11); Neutrophils Absolute Auto 13.1 x10*3/uL (2.0-8.3); Neutrophils Percent Auto 88.9 % (45-73); Platelet Count 228 X10*3/uL (160-400); Red Blood Count 3.52 X10*6/uL (4.20-5.50); Red Cell Distribution Width 12.9 % (11.0-16.0); White Blood Count 14.8 X10*3/uL (4.8-10.8)
[2021-06-30 06:55] LABS: Anion Gap 13 (12-20); Blood Urea Nitrogen 21 mg/dL (9-16); Calcium 8.5 mg/dL (8.4-10.2); Carbon Dioxide 27 mmol/L (22-29); Chloride 105 mmol/L (96-108); Creatinine Clr Calc Pharmacy 38.5; Estimated Glomerular Filt Rate 34; Glucose Random 299 mg/dL (60-115); Potassium 4.1 mmol/L (3.3-5.1); Sodium 141 mmol/L (135-145)
[2021-06-30] MEDS: Gabapentin 300 MG CAPSULE PO (07:41)
[2021-06-30] MEDS: hydrOXYzine HCL 25 MG TABLET PO ×2 (07:41→20:40)
[2021-06-30] MEDS: buPROPion HCl XL 150 MG TAB.ER.24H PO (07:41)
[2021-06-30] MEDS: rOPINIRole HCL 2 MG TABLET PO ×2 (07:42→20:40)
[2021-06-30] MEDS: Insulin Lispro 100 UNIT/ML 3 ML VIAL SUBCUT ×4 (07:42→20:39)
[2021-06-30] MEDS: Aspirin Enteric Coated 81 MG TABLET.DR PO (07:42)
[2021-06-30 07:43] LABS: Glucose, Whole Blood 258 mg/dL (60-115)
[2021-06-30] MEDS: Lactated Ringers 1,000 ML 80 ML IVCONT (07:49)
[2021-06-30] MEDS: Insulin Glargine,Hum.rec.anlog 100 UNIT/ML 10 ML VIAL 14 UNIT SUBCUT (09:24)
[2021-06-30] MEDS: methylPREDNISolone Sod Succ 40 MG/ML VIAL IVPUSH ×2 (09:24→20:40)
[2021-06-30 11:41] LABS: Glucose, Whole Blood 267 mg/dL (60-115)
--- NOTE | 2021-06-30 11:42 | P.PNIM_ITS ---
Subjective Subjective Date of Service: 06/30/21 Interval History: seen and examined this morning follow up for copd exacerbation, possible agustin still reporting OBRIEN, productive cough Review of Systems Review of Systems: Yes all other systems are reviewed and are negative Constitutional Constitutional: Denies chills and Denies fever(s) Cardiovascular Cardiovascular: Denies chest pain and Reports dyspnea on exertion Respiratory Respiratory: Reports change in phlegm color, Reports cough and Reports dyspnea on exertion Gastrointestinal Gastrointestinal: Denies abdominal pain Physical Exam Verdana 4l Vital Signs: Verdana 4d Verdana 4d Vital Signs: Verdana 4d Verdana 4Bd Last Vital Signs Verdana 4d Director Of Institutional Research New 4d Director Of Institutional Research New 4d Temp 98.0 F 06/30/21 07:15 Director Of Institutional Research New 4d Pulse 79 06/30/21 07:15 Director Of Institutional Research NewNew 4d Resp 19 06/30/21 07:15 BP 132/61 06/30/21 07:15 Pulse Ox 93 06/30/21 07:15 Oxygen Flow Rate 2 06/29/21 10:38 BMI result Body Mass Index 47.0 Const: General: comfortable, alert and awake Nutritional Appearance: obese Orientation/consciousness: patient oriented x3 HENMT: Head: Yes normocephalic and Yes atraumatic Eyes: Sclerae: sclerae normal Resp: Other: wheezing improving, b/l rhonchi Cardio: Rate: regular rate Rhythm: regular rhythm GI: Palpation (GI): Soft to palpation and nontender Neuro: General: patient oriented x3 Cranial nerves: Yes CN's II-XII intact bilaterally and Yes Bilaterally intact EOM present Extrem: Other: able to move all 4 extremities spontaneously. There is no lower extremity edema Objective Data Active Medications Acetaminophen (Acetaminophen 325 Mg Tablet) 650 mg PO Q6H PRN PRN Reason: Pain, Mild (Pain Scale 1-3) Albuterol/Ipratropium (Albuterol/Iprat 2.5/0.5mg 3 Ml Ampul.Neb) 3 ml INHALE RQ6H WHILE AWAKE [facility] Last Admin: 06/30/21 10:56 Dose: Not Given Documented by: BENNY Non-Admin Reason: resp not avail Albuterol/Ipratropium (Albuterol/Iprat 2.5/0.5mg 3 Ml Ampul.Neb) 3 ml INHALE RQ4H PRN PRN Reason: shorntess of breath/wheezing Aspirin (Aspirin Enteric Coated 81 Mg Tablet.Dr) 81 mg PO DAILY [facility] Last Admin: 06/30/21 07:42 Dose: 81 mg Documented by: KULDEEP Atorvastatin Calcium (Atorvastatin Calcium 80 Mg Tablet) 80 mg PO BEDTIME [facility] Last Admin: 06/29/21 21:38 Dose: 80 mg Documented by: CRISTINO Bupropion HCl (Bupropion Hcl Xl 150 Mg Tab.Er.24h) 150 mg PO DAILY [facility] Last Admin: 06/30/21 07:41 Dose: 150 mg Documented by: KULDEEP Dextrose (Dextrose 50 % 25 Gm/50 Ml Vial) 25 gm IVPUSH Q15M PRN; Protocol PRN Reason: per Hypoglycemia Standing Ord. Docusate Sodium (Docusate Sodium 100 Mg Capsule) 100 mg PO DAILY PRN PRN Reason: Constipation Fluticasone Propionate (Fluticasone Propionate Nasal 16 Gm [place]) 1 spray NOSTRIL-B DAILY [facility] Last Admin: 06/30/21 10:56 Dose: Not Given Documented by: ERNIERICC Non-Admin Reason: resp not avial Gabapentin (Gabapentin 300 Mg Capsule) 300 mg PO DAILY [facility] Last Admin: 06/30/21 07:41 Dose: 300 mg Documented by: KULDEEP Gabapentin (Gabapentin 300 Mg Capsule) 900 mg PO BEDTIME [facility] Last Admin: 06/29/21 21:44 Dose: 900 mg Documented by: CRISTINO Glucose (Glucose Gel 15 Gm Gel..Gram.) 15 gm PO Q15M PRN; Protocol PRN Reason: per Hypoglycemia Standing Ord. Guaifenesin/Dextromethorphan (Guaifenesin Dm 100/10/5 Ml 5 Ml Syrup) 5 ml PO Q4H PRN PRN Reason: Cough Last Admin: 06/30/21 09:23 Dose: 5 ml Documented by: KULDEEP Heparin Sodium (Porcine) (Heparin Sodium,Porcine 5,000 Unit/Ml Vial) 5,000 unit SUBCUT Q12H [facility] Last Admin: 06/30/21 01:13 Dose: 5,000 unit Documented by: JESSICA Hydroxyzine HCl (Hydroxyzine Hcl 25 Mg Tablet) 25 mg PO BID [facility] Last Admin: 06/30/21 07:41 Dose: 25 mg Documented by: KULDEEP Azithromycin 500 mg/ Sodium (Chloride) 250 mls @ 125 mls/hr IV Q24H [facility] Last Infusion: 06/29/21 18:31 Dose: 0 mls/hr Documented by: CRISTINO Lactated Ringer's (Lr) 1,000 mls @ 80 mls/hr IVCONT .[id number] [facility] Stop: 06/30/21 20:14 Last Admin: 06/30/21 07:49 Dose: 80 mls/hr Documented by: KULDEEP Insulin Glargine (Insulin Glargine,Hum.Rec.Anlog 100 Unit/Ml 10 Ml Vial) 14 unit SUBCUT DAILY [facility] Last Admin: 06/30/21 09:24 Dose: 14 unit Documented by: KULDEEP Insulin Human Lispro (Insulin Lispro 100 Unit/Ml 3 Ml Vial) 0 unit SUBCUT QIDACHS [facility]; Protocol Last Admin: 06/30/21 11:33 Dose: 6 unit Documented by: KULDEEP Methylprednisolone Sodium Succinate (Methylprednisolone Sod Succ 40 Mg/Ml Vial) 40 mg IVPUSH BID [facility] Last Admin: 06/30/21 09:24 Dose: 40 mg Documented by: KULDEEP Montelukast Sodium (Montelukast Sodium 10 Mg Tablet) 10 mg PO BEDTIME [facility] Last Admin: 06/29/21 21:38 Dose: 10 mg Documented by: CRISTINO Pharmacy Consult (Consult Rx Perform Med Rec) 1 each MISCELLANE ONCE PRN PRN Reason: Consult order Ropinirole HCl (Ropinirole Hcl 2 Mg Tablet) 2 mg PO BID [facility] Last Admin: 06/30/21 07:42 Dose: 2 mg Documented by: KULDEEP Sodium Chloride (0.9 % Sodium Chloride Flush 3 Ml Syringe) 3 ml IVFLUSH QSHIFT [facility] Last Admin: 06/30/21 07:55 Dose: 3 ml Documented by: KULDEEP Trazodone HCl (Trazodone Hcl 50 Mg Tablet) 250 mg PO BEDTIME [facility] Last Admin: 06/29/21 21:37 Dose: 250 mg Documented by: CRISTINO Labs CBC & Chem 7: 06/30/21 06:00 06/30/21 06:00 Labs: Laboratory Results - last 24 hr 06/29/21 06/29/21 06/29/21 11:14 11:14 11:14 MCV MCH MCHC RDW Plt Count MPV Immature Gran % (Auto) Neut % (Auto) Lymph % (Auto) [place] % (Auto) Eos % (Auto) Baso % (Auto) Lymph # (Auto) [place] # (Auto) Eos # (Auto) Baso # (Auto) Abs Immat Gran (auto) Absolute Neuts (auto) Absolute Nucleated RBC Nucleated RBC % (auto) Anion Gap 12 Estim Creat Clear Calc 36.8 Estimated GFR 32 POC Glucose Random Glucose 262 H Calcium 8.8 D Total Bilirubin 0.4 Direct Bilirubin < 0.2 AST 19 ALT 18 Alkaline Phosphatase 41 Troponin I High Sens 5.7 B-Natriuretic Peptide < 10 Total Protein 6.1 L Albumin 3.7 Lipase 19 Influenza Type A (PCR) NEGATIVE Influenza Type B (PCR) NEGATIVE RSV RNA Qual (PCR) NEGATIVE SARS-CoV-2 RNA (RT-PCR) NEGATIVE 06/29/21 06/29/21 06/30/21 16:23 20:20 06:00 MCV 91.2 MCH 29.0 MCHC 31.8 RDW 12.9 Plt Count 228 MPV 11.8 Immature Gran % (Auto) 0.5 H Neut % (Auto) 88.9 H Lymph % (Auto) 8.4 L [place] % (Auto) 2.1 Eos % (Auto) 0.0 Baso % (Auto) 0.1 Lymph # (Auto) 1.2 [place] # (Auto) 0.3 Eos # (Auto) 0.0 Baso # (Auto) 0.0 Abs Immat Gran (auto) 0.08 H Absolute Neuts (auto) 13.1 H Absolute Nucleated RBC 0.000 Nucleated RBC % (auto) 0.0 Anion Gap Estim Creat Clear Calc Estimated GFR POC Glucose 284 H 321 H Random Glucose Calcium Total Bilirubin Direct Bilirubin AST ALT Alkaline Phosphatase Troponin I High Sens B-Natriuretic Peptide Total Protein Albumin Lipase Influenza Type A (PCR) Influenza Type B (PCR) RSV RNA Qual (PCR) SARS-CoV-2 RNA (RT-PCR) 06/30/21 06/30/21 06/30/21 06:00 07:14 11:28 MCV MCH MCHC RDW Plt Count MPV Immature Gran % (Auto) Neut % (Auto) Lymph % (Auto) [place] % (Auto) Eos % (Auto) Baso % (Auto) Lymph # (Auto) [place] # (Auto) Eos # (Auto) Baso # (Auto) Abs Immat Gran (auto) Absolute Neuts (auto) Absolute Nucleated RBC Nucleated RBC % (auto) Anion Gap 13 Estim Creat Clear Calc 38.5 Estimated GFR 34 POC Glucose 258 H 267 H Random Glucose 299 H Calcium 8.5 Total Bilirubin Direct Bilirubin AST ALT Alkaline Phosphatase Troponin I High Sens B-Natriuretic Peptide Total Protein Albumin Lipase Influenza Type A (PCR) Influenza Type B (PCR) RSV RNA Qual (PCR) SARS-CoV-2 RNA (RT-PCR) Microbiology Microbiology Results: Microbiology 06/29/21 Unknown Urine Culture - Preliminary Urine clean catch - Urine almaguer top Gram negative alesha Assessment and Plan (1) COPD exacerbation: Status: Acute (2) Acute kidney injury: Status: Acute Assessment and Plan: this is a 71 old female with history COPD /chronic respiratory failure on 2 L of home oxygen, morbid obesity, hypoventilation, diabetes presents to the emergency department with 5 day history of increasing shortness of breath on exertion and productive cough acute COPD exacerbation/ chronic respiratory failure currently maintaining saturations in the mid 90s on baseline 2L oxygen continue scheduled and p.r.n. breathing treatments continue IV Solu-Medrol, can likely transition to PO prednisone tomorrow given increase in cough and purulent sputum production, initially started on azithromycin, will change to ceftin to cover urine as well AGUSTIN on CKD3 SCr today 1.50 (1.60 on 06/26 when routine labs were drawn and was increased from baseline and pcp was planning on repeating labs) hold lisinopril gentle IVF follow renal function daily. if no significant improvement, this may represent new baseline UTI unclear why UA collected as patient has no urinary symptoms UCx growing gram neg alesha will change abx to ceftin to cover urine source as well leukocytosis r/t steroid use DM will convert home dose of Levimir to Lantus hold metformin SSI, POCs, ADA diet HLD continue HLD mood continue bupropion, hydroxizine RLS continue ropinerole, gabapentin dvt ppx - heparin hcp - son code status - Full code attending - dr. brumfield Quality Stroke Does the patient have a stroke diagnosis?: No VTE Prior VTE?: No VTE Risk Level:: Medical - moderate - high VTE Device Contraindication: N/A - Device Ordered VTE Drug Contraindication: N/A - Med Ordered
[2021-06-30 16:33] LABS: Glucose, Whole Blood 257 mg/dL (60-115)
[2021-06-30] MEDS: Albuterol/Iprat 2.5/0.5MG 3 ML AMPUL.NEB INHALE (20:09)
[2021-06-30 20:34] LABS: Glucose, Whole Blood 309 mg/dL (60-115)
[2021-06-30] MEDS: traZODone HCL 50 MG TABLET 250 MG PO (20:40)
[2021-06-30] MEDS: Montelukast Sodium 10 MG TABLET PO (20:40)
[2021-06-30] MEDS: Atorvastatin Calcium 80 MG TABLET PO (20:41)
[2021-06-30] MEDS: Gabapentin 300 MG CAPSULE 900 MG PO (20:41)
[2021-07-01] VITALS (7 sets, daily range): BP systolic 137–166; BP diastolic 57–71; PULSE 67–93; RESP 17–20; TEMP 36.2–36.6; O2SAT 92–98
[2021-07-01] MEDS: 0.9 % Sodium Chloride Flush 3 ML SYRINGE IVFLUSH ×4 (00:02→21:54)
[2021-07-01] MEDS: Heparin Sodium,Porcine 5,000 UNIT/ML VIAL 5000 UNIT SUBCUT ×2 (03:31→15:32)
[2021-07-01 05:09] LABS: Anion Gap 17 (12-20); Blood Urea Nitrogen 30 mg/dL (9-16); Calcium 8.5 mg/dL (8.4-10.2); Carbon Dioxide 21 mmol/L (22-29); Chloride 107 mmol/L (96-108); Creatinine Clr Calc Pharmacy 40.1; Estimated Glomerular Filt Rate 36; Glucose Random 316 mg/dL (60-115); Potassium 4.6 mmol/L (3.3-5.1); Sodium 140 mmol/L (135-145)
[2021-07-01 07:49] LABS: Glucose, Whole Blood 273 mg/dL (60-115)
[2021-07-01] MEDS: Insulin Lispro 100 UNIT/ML 3 ML VIAL SUBCUT ×4 (07:51→21:54)
[2021-07-01] MEDS: Gabapentin 300 MG CAPSULE PO (07:52)
[2021-07-01] MEDS: Aspirin Enteric Coated 81 MG TABLET.DR PO (07:52)
[2021-07-01] MEDS: buPROPion HCl XL 150 MG TAB.ER.24H PO (07:52)
[2021-07-01] MEDS: hydrOXYzine HCL 25 MG TABLET PO ×2 (07:52→21:54)
[2021-07-01] MEDS: Albuterol/Iprat 2.5/0.5MG 3 ML AMPUL.NEB INHALE ×3 (08:29→19:14)
[2021-07-01 08:30] LABS: Basophils Percent Auto 0.1 % (0-2); Hematocrit 34.2 % (37.0-47.0); Hemoglobin 10.9 g/dl (12.0-16.0); Imm Gran Abs Auto 0.11 X10*3/uL (0.00-0.03); Imm Gran Pct Auto 0.6 % (0.0-0.4); Lymphocytes Absolute Auto 1.8 X10*3/uL (1.2-4.9); Lymphocytes Percent Auto 10.2 % (20-40); Mean Corpuscular HGB Conc 31.9 g/dl (31.0-35.0); Mean Corpuscular Hemoglobin 28.5 pg (27.0-33.0); Mean Corpuscular Volume 89.5 fL (80.0-98.0); Mean Platelet Volume 12.1 fL (9.4-12.3); Monocytes Absolute Auto 0.5 X10*3/uL (0.1-1.2); Monocytes Percent Auto 3.1 % (2-11); Platelet Count 239 X10*3/uL (160-400); Red Blood Count 3.82 X10*6/uL (4.20-5.50); Red Cell Distribution Width 12.9 % (11.0-16.0); White Blood Count 17.5 X10*3/uL (4.8-10.8)
[2021-07-01 08:32] LABS: MANUAL DIFF FLAG NO
--- NOTE | 2021-07-01 09:56 | MHC.CLN ---
NUTRITION CHANGED DIET TO DIABETIC 1800 KCAL. PROVIDES 39.6 KCALS/KG IBW.
[2021-07-01] MEDS: methylPREDNISolone Sod Succ 40 MG/ML VIAL IVPUSH ×2 (10:09→21:52)
[2021-07-01] MEDS: Fluticasone Propionate Nasal 16 GM SPRAY 1 SPRAY NOSTRIL-B (10:09)
[2021-07-01] MEDS: Insulin Glargine,Hum.rec.anlog 100 UNIT/ML 10 ML VIAL 14 UNIT SUBCUT (10:09)
[2021-07-01] MEDS: rOPINIRole HCL 2 MG TABLET PO ×2 (10:09→21:52)
--- NOTE | 2021-07-01 10:48 | P.PNIM_ITS ---
Subjective Subjective Date of Service: 07/01/21 Review of Systems Follow-up COPD exacerbation Still with coughing and wheezing Sitting up in a chair Physical Exam Vital Signs: Vital Signs: Last Vital Signs Temp 97.1 F 07/01/21 07:24 Pulse 67 07/01/21 08:30 Resp 20 07/01/21 08:30 BP 137/57 L 07/01/21 07:24 Pulse Ox 95 07/01/21 07:24 Oxygen Flow Rate 2 06/29/21 10:38 BMI result Body Mass Index 47.0 Objective Data Active Medications Acetaminophen (Acetaminophen 325 Mg Tablet) 650 mg PO Q6H PRN PRN Reason: Pain, Mild (Pain Scale 1-3) Albuterol/Ipratropium (Albuterol/Iprat 2.5/0.5mg 3 Ml Ampul.Neb) 3 ml INHALE RQ6H WHILE AWAKE [facility] Last Admin: 07/01/21 08:29 Dose: 3 ml Documented by: ORESTES Albuterol/Ipratropium (Albuterol/Iprat 2.5/0.5mg 3 Ml Ampul.Neb) 3 ml INHALE R Q4H PRN PRN Reason: shorntess of breath/wheezing Aspirin (Aspirin Enteric Coated 81 Mg Tablet.Dr) 81 mg PO DAILY [facility] Last Admin: 07/01/21 07:52 Dose: 81 mg Documented by: KULDEEP Atorvastatin Calcium (Atorvastatin Calcium 80 Mg Tablet) 80 mg PO BEDTIME [facility] Last Admin: 06/30/21 20:41 Dose: 80 mg Documented by: CRISTINO Bupropion HCl (Bupropion Hcl Xl 150 Mg Tab.Er.24h) 150 mg PO DAILY [facility] Last Admin: 07/01/21 07:52 Dose: 150 mg Documented by: KULDEEP Cefuroxime Axetil (Cefuroxime Axetil 250 Mg Tablet) 250 mg PO Q12H [facility] Last Admin: 07/01/21 00:00 Dose: 250 mg Documented by: AKIKO Dextrose (Dextrose 50 % 25 Gm/50 Ml Vial) 25 gm IVPUSH Q15M PRN; Protocol PRN Reason: per Hypoglycemia Standing Ord. Docusate Sodium (Docusate Sodium 100 Mg Capsule) 100 mg PO DAILY PRN PRN Reason: Constipation Fluticasone Propionate (Fluticasone Propionate Nasal 16 Gm [place]) 1 spray NOSTRIL-B DAILY [facility] Last Admin: 07/01/21 10:09 Dose: 1 spray Documented by: KULDEEP Gabapentin (Gabapentin 300 Mg Capsule) 300 mg PO DAILY [facility] Last Admin: 07/01/21 07:52 Dose: 300 mg Documented by: KULDEEP Gabapentin (Gabapentin 300 Mg Capsule) 900 mg PO BEDTIME [facility] Last Admin: 06/30/21 20:41 Dose: 900 mg Documented by: CRISTINO Glucose (Glucose Gel 15 Gm Gel..Gram.) 15 gm PO Q15M PRN; Protocol PRN Reason: per Hypoglycemia Standing Ord. Guaifenesin/Dextromethorphan (Guaifenesin Dm 100/10/5 Ml 5 Ml Syrup) 5 ml PO Q4H PRN PRN Reason: Cough Last Admin: 06/30/21 09:23 Dose: 5 ml Documented by: KULDEEP Heparin Sodium (Porcine) (Heparin Sodium,Porcine 5,000 Unit/Ml Vial) 5,000 unit SUBCUT Q12H [facility] Last Admin: 07/01/21 03:31 Dose: 5,000 unit Documented by: AKIKO Hydroxyzine HCl (Hydroxyzine Hcl 25 Mg Tablet) 25 mg PO BID [facility] Last Admin: 07/01/21 07:52 Dose: 25 mg Documented by: KULDEEP Insulin Glargine (Insulin Glargine,Hum.Rec.Anlog 100 Unit/Ml 10 Ml Vial) 14 unit SUBCUT DAILY [facility] Last Admin: 07/01/21 10:09 Dose: 14 unit Documented by: KULDEEP Insulin Human Lispro (Insulin Lispro 100 Unit/Ml 3 Ml Vial) 0 unit SUBCUT QIDACHS [facility]; Protocol Last Admin: 07/01/21 07:51 Dose: 6 unit Documented by: KULDEEP Methylprednisolone Sodium Succinate (Methylprednisolone Sod Succ 40 Mg/Ml Vial) 40 mg IVPUSH BID [facility] Last Admin: 07/01/21 10:09 Dose: 40 mg Documented by: KULDEEP Montelukast Sodium (Montelukast Sodium 10 Mg Tablet) 10 mg PO BEDTIME [facility] Last Admin: 06/30/21 20:40 Dose: 10 mg Documented by: CRISTINO Pharmacy Consult (Consult Rx Perform Med Rec) 1 each MISCELLANE ONCE PRN PRN Reason: Consult order Ropinirole HCl (Ropinirole Hcl 2 Mg Tablet) 2 mg PO BID [facility] Last Admin: 07/01/21 10:09 Dose: 2 mg Documented by: KULDEEP Sodium Chloride (0.9 % Sodium Chloride Flush 3 Ml Syringe) 3 ml IVFLUSH QSHIFT [facility] Last Admin: 07/01/21 10:10 Dose: 3 ml Documented by: KULDEEP Trazodone HCl (Trazodone Hcl 50 Mg Tablet) 250 mg PO BEDTIME [facility] Last Admin: 06/30/21 20:40 Dose: 250 mg Documented by: CRISTINO Labs CBC & Chem 7: 07/01/21 08:14 07/01/21 04:13 Labs: Laboratory Results - last 24 hr 06/30/21 06/30/21 06/30/21 11:28 16:09 19:41 MCV MCH MCHC RDW Plt Count MPV Immature Gran % (Auto) Neut % (Auto) Lymph % (Auto) [place] % (Auto) Eos % (Auto) Baso % (Auto) Lymph # (Auto) [place] # (Auto) Eos # (Auto) Baso # (Auto) Abs Immat Gran (auto) Absolute Neuts (auto) Absolute Nucleated RBC Nucleated RBC % (auto) Anion Gap Estim Creat Clear Calc Estimated GFR POC Glucose 267 H 257 H 309 H Random Glucose Calcium 07/01/21 07/01/21 07/01/21 04:13 07:20 08:14 MCV 89.5 MCH 28.5 MCHC 31.9 RDW 12.9 Plt Count 239 MPV 12.1 Immature Gran % (Auto) 0.6 H Neut % (Auto) 86.0 H Lymph % (Auto) 10.2 L [place] % (Auto) 3.1 Eos % (Auto) 0.0 Baso % (Auto) 0.1 Lymph # (Auto) 1.8 [place] # (Auto) 0.5 Eos # (Auto) 0.0 Baso # (Auto) 0.0 Abs Immat Gran (auto) 0.11 H Absolute Neuts (auto) 15.0 H Absolute Nucleated RBC 0.000 Nucleated RBC % (auto) 0.0 Anion Gap 17 Estim Creat Clear Calc 40.1 Estimated GFR 36 POC Glucose 273 H Random Glucose 316 H Calcium 8.5 Microbiology Microbiology Results: Microbiology 06/29/21 Unknown Urine Culture - Preliminary Urine clean catch - Urine almaguer top Gram negative alesha 06/29/21 12:33 Blood Culture - Preliminary Blood - Venous No growth after 24 hours. 06/29/21 11:14 Blood Culture - Preliminary Blood - Venous No growth after 24 hours. Assessment and Plan (1) COPD exacerbation: Status: Acute (2) Acute kidney injury: Status: Acute (3) COPD (chronic obstructive pulmonary disease): Status: Acute (4) Diabetes: Status: Acute Assessment and Plan: This is a 71 old female with history COPD /chronic respiratory failure on 2 L of home oxygen, morbid obesity, hypoventilation, diabetes presents to the emergency department with 5 day history of increasing shortness of breath on exertion and productive cough acute COPD exacerbation/ chronic respiratory failure Still with coughing and wheezing continue scheduled and? p.r.n. breathing treatments Increase IV Solu-Medrol to t.i.d. Ceftin AGUSTIN on CKD3 SCr today 1.50 (1.60 on 06/26 when routine labs were drawn and was increased from baseline and pcp was planning on repeating labs) hold lisinopril gentle IVF follow renal function daily. if no significant improvement, this may represent new baseline UTI unclear why UA collected as patient has no urinary symptoms UCx growing gram neg alesha continue Ceftin leukocytosis r/t steroid use DM will convert home dose of Levimir to Lantus hold metformin SSI, POCs, ADA diet HLD continue HLD mood continue bupropion, hydroxizine RLS continue ropinerole, gabapentin dvt ppx - heparin hcp - son code status - Full code attending Dr. Tang Quality Stroke Does the patient have a stroke diagnosis?: No VTE Prior VTE?: No VTE Risk Level:: Medical - moderate - high VTE Device Contraindication: N/A - Device Ordered VTE Drug Contraindication: N/A - Med Ordered
[2021-07-01 11:46] LABS: Glucose, Whole Blood 197 mg/dL (60-115)
--- NOTE | 2021-07-01 14:46 | MHC.CM.PN ---
Addendum entered by Erika Carcamo 07/02/21 13:46: 07/02/22 PATIENT EVALUATED BY PHYSICAL THERAPY AND PATIENT WITH EXERTION O2 SATS DROP SIGNIFICANTLY. AND THEY RECOMENDED STR , PATIENT TERRIE IS VERUY ACCEPTING OF [facility] AND IS WILLING TO ONLY GO TO [facility] REFERRAL SENT TO THEM AWAITING RESPONSE WITH DISCHARGE FOR TOMORROW WITH OXYGEN Original Note: nurse home day care provider note electronic medical record reviewed along with case discussed on rounds, met with patient she lives [facility] in [facility], she has no vna services as she is not homebound, she does have a stunt woman from [facility] 1x week for housekeeping and laundry bathing her friend will stay with her overnight if she is not feeling well or needs help , her son lives close by she is independnet in [place] and mobility with out the use of any equipementy she recived the coiv vacination aug the pfzier she confirmed health care proxy naming her son requested copy to be brought o the hospital , confirmed pcp dr odin guy dioscharge plan home with no vna as of now. self resumption of linecare for her home oxygen and nebulizer transportation family or friend, patient has handicap sticker for her care, her friend or son transport to medical appointment s, she is followed by dr caicedo pulomnary pcp dr odin stewart medic[employer] imm sighned re uested copy of hcp
[2021-07-01] MEDS: Acetaminophen 325 MG TABLET 650 MG PO (15:37)
[2021-07-01] MEDS: guaiFENesin DM 100/10/5 ML 5 ML SYRUP PO ×2 (15:37→23:40)
[2021-07-01 16:51] LABS: Glucose, Whole Blood 334 mg/dL (60-115)
[2021-07-01 19:22] LABS: Glucose, Whole Blood 262 mg/dL (60-115)
[2021-07-01] MEDS: Montelukast Sodium 10 MG TABLET PO (21:52)
[2021-07-01] MEDS: traZODone HCL 50 MG TABLET 250 MG PO (21:53)
[2021-07-01] MEDS: Gabapentin 300 MG CAPSULE 900 MG PO (21:53)
[2021-07-01] MEDS: Atorvastatin Calcium 80 MG TABLET PO (21:54)
[2021-07-02] VITALS (10 sets, daily range): BP systolic 149–188; BP diastolic 54–77; PULSE 68–80; RESP 17–20; TEMP 36.2–36.6; O2SAT 20–97
[2021-07-02] MEDS: Heparin Sodium,Porcine 5,000 UNIT/ML VIAL 5000 UNIT SUBCUT ×2 (02:02→13:54)
[2021-07-02 06:07] LABS: Hematocrit 33.6 % (37.0-47.0); Hemoglobin 10.8 g/dl (12.0-16.0); Mean Corpuscular HGB Conc 32.1 g/dl (31.0-35.0); Mean Corpuscular Hemoglobin 28.7 pg (27.0-33.0); Mean Corpuscular Volume 89.4 fL (80.0-98.0); Mean Platelet Volume 12.5 fL (9.4-12.3); Platelet Count 253 X10*3/uL (160-400); Red Blood Count 3.76 X10*6/uL (4.20-5.50); Red Cell Distribution Width 12.8 % (11.0-16.0); White Blood Count 14.3 X10*3/uL (4.8-10.8)
[2021-07-02 06:27] LABS: Anion Gap 15 (12-20); Blood Urea Nitrogen 40 mg/dL (9-16); Calcium 8.9 mg/dL (8.4-10.2); Carbon Dioxide 26 mmol/L (22-29); Chloride 102 mmol/L (96-108); Creatinine Clr Calc Pharmacy 33.2; Estimated Glomerular Filt Rate 29; Glucose Random 345 mg/dL (60-115); Potassium 4.9 mmol/L (3.3-5.1); Sodium 138 mmol/L (135-145)
[2021-07-02 07:46] LABS: Glucose, Whole Blood 284 mg/dL (60-115)
[2021-07-02] MEDS: Insulin Lispro 100 UNIT/ML 3 ML VIAL SUBCUT ×4 (07:53→20:38)
[2021-07-02] MEDS: methylPREDNISolone Sod Succ 40 MG/ML VIAL IVPUSH ×2 (07:53→20:37)
[2021-07-02] MEDS: Insulin Glargine,Hum.rec.anlog 100 UNIT/ML 10 ML VIAL 14 UNIT SUBCUT (07:53)
[2021-07-02] MEDS: Aspirin Enteric Coated 81 MG TABLET.DR PO (07:54)
[2021-07-02] MEDS: rOPINIRole HCL 2 MG TABLET PO ×2 (07:54→20:37)
[2021-07-02] MEDS: 0.9 % Sodium Chloride Flush 3 ML SYRINGE IVFLUSH ×3 (07:54→20:38)
[2021-07-02] MEDS: hydrOXYzine HCL 25 MG TABLET PO ×2 (07:54→20:37)
[2021-07-02] MEDS: Gabapentin 300 MG CAPSULE PO (07:54)
[2021-07-02] MEDS: buPROPion HCl XL 150 MG TAB.ER.24H PO (07:54)
[2021-07-02] MEDS: Albuterol/Iprat 2.5/0.5MG 3 ML AMPUL.NEB INHALE ×2 (08:13→15:09)
--- NOTE | 2021-07-02 10:51 | HO.PM.IMPN ---
Subjective Subjective Date of Service: 07/02/21 Review of Systems Follow up COPD exacerbation Still with cough and wheezing but better Denies chest pain, nausea, vomiting All other systems are reviewed and are negative Physical Exam Vital Signs: Vital Signs: Last Vital Signs Temp 97.4 F 07/02/21 07:35 Pulse 77 07/02/21 09:54 Resp 17 07/02/21 07:35 BP 164/73 H 07/02/21 07:35 Pulse Ox 94 07/02/21 09:54 Oxygen Flow Rate 2 06/29/21 10:38 BMI result Body Mass Index 47.0 Appearing in no acute distress lungs exp wheezing heart regular rate rhythm, clear S1, S2 positive bowel sounds, abdomen is soft, nontender neuro patient is alert x3, no focal deficits Objective Data Active Medications Acetaminophen (Acetaminophen 325 Mg Tablet) 650 mg PO Q6H PRN PRN Reason: Pain, Mild (Pain Scale 1-3) Last Admin: 07/01/21 15:37 Dose: 650 mg Documented by: MONSE Albuterol/Ipratropium (Albuterol/Iprat 2.5/0.5mg 3 Ml Ampul.Neb) 3 ml INHALE RQ6H WHILE AWAKE [facility] Last Admin: 07/02/21 08:13 Dose: 3 ml Documented by: ORESTES Albuterol/Ipratropium (Albuterol/Iprat 2.5/0.5mg 3 Ml Ampul.Neb) 3 ml INHALE RQ4H PRN PRN Reason: shorntess of breath/wheezing Aspirin (Aspirin Enteric Coated 81 Mg Tablet.) 81 mg PO DAILY [facility] Last Admin: 07/02/21 07:54 Dose: 81 mg Documented by: NEGRA Atorvastatin Calcium (Atorvastatin Calcium 80 Mg Tablet) 80 mg PO BEDTIME [facility] Last Admin: 07/01/21 21:54 Dose: 80 mg Documented by: LEIGHTON Bupropion HCl (Bupropion Hcl Xl 150 Mg Tab.Er.24h) 150 mg PO DAILY [facility] Last Admin: 07/02/21 07:54 Dose: 150 mg Documented by: NEGRA Cefuroxime Axetil (Cefuroxime Axetil 250 Mg Tablet) 250 mg PO Q12H [facility] Last Admin: 07/01/21 23:41 Dose: 250 mg Documented by: HO.CASTILM Dextrose (Dextrose 50 % 25 Gm/50 Ml Vial) 25 gm IVPUSH Q15M PRN; Protocol PRN Reason: per Hypoglycemia Standing Ord. Docusate Sodium (Docusate Sodium 100 Mg Capsule) 100 mg PO DAILY PRN PRN Reason: Constipation Fluticasone Propionate (Fluticasone Propionate Nasal 16 Gm [place]) 1 spray NOSTRIL-B DAILY [facility] Last Admin: 07/02/21 08:00 Dose: Not Given Documented by: NEGRA Non-Admin Reason: Patient Refused Gabapentin (Gabapentin 300 Mg Capsule) 300 mg PO DAILY [facility] Last Admin: 07/02/21 07:54 Dose: 300 mg Documented by: NEGRA Gabapentin (Gabapentin 300 Mg Capsule) 900 mg PO BEDTIME [facility] Last Admin: 07/01/21 21:53 Dose: 900 mg Documented by: LEIGHTON Glucose (Glucose Gel 15 Gm Gel..Gram.) 15 gm PO Q15M PRN; Protocol PRN Reason: per Hypoglycemia Standing Ord. Guaifenesin/Dextromethorphan (Guaifenesin Dm 100/10/5 Ml 5 Ml Syrup) 5 ml PO Q4H PRN PRN Reason: Cough Last Admin: 07/01/21 23:40 Dose: 5 ml Documented by: LEIGHTON Heparin Sodium (Porcine) (Heparin Sodium,Porcine 5,000 Unit/Ml Vial) 5,000 unit SUBCUT Q12H [facility] Last Admin: 07/02/21 02:02 Dose: 5,000 unit Documented by: LEIGHTON Hydroxyzine HCl (Hydroxyzine Hcl 25 Mg Tablet) 25 mg PO BID [facility] Last Admin: 07/02/21 07:54 Dose: 25 mg Documented by: NEGRA Insulin Glargine (Insulin Glargine,Hum.Rec.Anlog 100 Unit/Ml 10 Ml Vial) 14 unit SUBCUT DAILY [facility] Last Admin: 07/02/21 07:53 Dose: 14 unit Documented by: NEGRA Insulin Human Lispro (Insulin Lispro 100 Unit/Ml 3 Ml Vial) 0 unit SUBCUT QIDACHS [facility]; Protocol Last Admin: 07/02/21 07:53 Dose: 6 unit Documented by: NEGRA Methylprednisolone Sodium Succinate (Methylprednisolone Sod Succ 40 Mg/Ml Vial) 40 mg IVPUSH BID [facility] Last Admin: 07/02/21 07:53 Dose: 40 mg Documented by: NEGRA Montelukast Sodium (Montelukast Sodium 10 Mg Tablet) 10 mg PO BEDTIME [facility] Last Admin: 07/01/21 21:52 Dose: 10 mg Documented by: LEIGHTON Pharmacy Consult (Consult Rx Perform Med Rec) 1 each MISCELLANE ONCE PRN PRN Reason: Consult order Ropinirole HCl (Ropinirole Hcl 2 Mg Tablet) 2 mg PO BID [facility] Last Admin: 07/02/21 07:54 Dose: 2 mg Documented by: NEGRA Sodium Chloride (0.9 % Sodium Chloride Flush 3 Ml Syringe) 3 ml IVFLUSH QSHIFT [facility] Last Admin: 07/02/21 07:54 Dose: 3 ml Documented by: NEGRA Trazodone HCl (Trazodone Hcl 50 Mg Tablet) 250 mg PO BEDTIME [facility] Last Admin: 07/01/21 21:53 Dose: 250 mg Documented by: LEIGHTON Labs CBC & Chem 7: 07/02/21 05:23 07/02/21 05:23 Labs: Laboratory Results - last 24 hr 07/01/21 07/01/21 07/01/21 11:41 15:48 19:18 MCV MCH MCHC RDW Plt Count MPV Absolute Nucleated RBC Nucleated RBC % (auto) Anion Gap Estim Creat Clear Calc Estimated GFR POC Glucose 197 H 334 H 262 H Random Glucose Calcium 07/02/21 07/02/21 07/02/21 05:23 05:23 07:33 MCV 89.4 MCH 28.7 MCHC 32.1 RDW 12.8 Plt Count 253 MPV 12.5 H Absolute Nucleated RBC 0.000 Nucleated RBC % (auto) 0.0 Anion Gap 15 Estim Creat Clear Calc 33.2 Estimated GFR 29 POC Glucose 284 H Random Glucose 345 H Calcium 8.9 Microbiology Microbiology Results: Microbiology 06/29/21 12:33 Blood Culture - Preliminary Blood - Venous No growth after 48 hours. 06/29/21 11:14 Blood Culture - Preliminary Blood - Venous No growth after 48 hours. 06/29/21 Unknown Urine Culture - Preliminary Urine clean catch - Urine almaguer top Gram negative alesha Assessment and Plan (1) COPD exacerbation: Status: Acute (2) Acute kidney injury: Status: Acute (3) UTI (urinary tract infection): Status: Acute Assessment and Plan: This is a 71 old female with history COPD /chronic respiratory failure on 2 L of home oxygen, morbid obesity, hypoventilation, diabetes presents to the emergency department with 5 day history of increasing shortness of breath on exertion and productive cough Acute COPD exacerbation/ chronic respiratory failure Still with coughing and wheezing but improving continue scheduled and? p.r.n. breathing treatments Ceftin AGUSTIN on CKD3 (1.60 on 06/26 when routine labs were drawn and was increased from baseline and pcp was planning on repeating labs) hold lisinopril follow renal function daily. if no significant improvement, this may represent new baseline UTI unclear why UA collected as patient has no urinary symptoms UCx growing gram neg alesha continue Ceftin leukocytosis r/t steroid use DM will convert home dose of Levimir to Lantus hold metformin SSI, POCs, ADA diet HLD continue HLD mood continue bupropion, hydroxizine RLS continue ropinerole, gabapentin dvt ppx - heparin hcp - son code status - Full code attending? Dr. Tang Quality Stroke Does the patient have a stroke diagnosis?: No VTE Prior VTE?: No VTE Risk Level:: Medical - moderate - high VTE Device Contraindication: N/A - Device Ordered VTE Drug Contraindication: N/A - Med Ordered
[2021-07-02 11:32] LABS: Glucose, Whole Blood 307 mg/dL (60-115)
--- NOTE | 2021-07-02 13:57 | MHC.CM.PN ---
NURSE DIFFERENTIAL SPECIALIST NOTE DISCHARGE PLAN PATIENT NOW ACCEPTING REFERRAL TO [facility] (WAITING ON [facility]ONSEONLY AT THIS TIME FOR STR WITH OXYGEN , PER PHYSICAL THERAPY EVALUATION DISCHARGE ANTICIPATED FOR TOMORROW TRANSPORTATION ACTION [facility]LS VS WHEELCHAIR VAN WITH O2
[2021-07-02 16:42] LABS: Glucose, Whole Blood 331 mg/dL (60-115)
[2021-07-02 20:11] LABS: Glucose, Whole Blood 254 mg/dL (60-115)
[2021-07-02] MEDS: Gabapentin 300 MG CAPSULE 900 MG PO (20:37)
[2021-07-02] MEDS: Atorvastatin Calcium 80 MG TABLET PO (20:37)
[2021-07-02] MEDS: Montelukast Sodium 10 MG TABLET PO (20:37)
[2021-07-02] MEDS: traZODone HCL 50 MG TABLET 250 MG PO (20:37)
[2021-07-02] MEDS: guaiFENesin DM 100/10/5 ML 5 ML SYRUP PO (20:44)
[2021-07-03] VITALS (9 sets, daily range): BP systolic 146–172; BP diastolic 56–75; PULSE 63–94; RESP 17–24; TEMP 36.2–37; O2SAT 92–97
[2021-07-03] MEDS: Heparin Sodium,Porcine 5,000 UNIT/ML VIAL 5000 UNIT SUBCUT ×2 (02:30→13:44)
[2021-07-03] MEDS: hydrOXYzine HCL 25 MG TABLET PO ×2 (07:36→20:39)
[2021-07-03] MEDS: Gabapentin 300 MG CAPSULE PO (07:36)
[2021-07-03] MEDS: Aspirin Enteric Coated 81 MG TABLET.DR PO (07:36)
[2021-07-03] MEDS: buPROPion HCl XL 150 MG TAB.ER.24H PO (07:36)
[2021-07-03] MEDS: rOPINIRole HCL 2 MG TABLET PO ×2 (07:36→20:39)
[2021-07-03] MEDS: methylPREDNISolone Sod Succ 40 MG/ML VIAL IVPUSH ×2 (07:37→20:38)
[2021-07-03] MEDS: 0.9 % Sodium Chloride Flush 3 ML SYRINGE IVFLUSH ×3 (07:37→23:03)
[2021-07-03] MEDS: Insulin Glargine,Hum.rec.anlog 100 UNIT/ML 10 ML VIAL 14 UNIT SUBCUT (07:37)
[2021-07-03] MEDS: Insulin Lispro 100 UNIT/ML 3 ML VIAL SUBCUT ×4 (07:37→20:39)
[2021-07-03 07:49] LABS: Glucose, Whole Blood 272 mg/dL (60-115)
[2021-07-03] MEDS: Albuterol/Iprat 2.5/0.5MG 3 ML AMPUL.NEB INHALE ×3 (08:18→20:30)
--- NOTE | 2021-07-03 10:28 | P.PNIM_ITS ---
Subjective Subjective Date of Service: 07/03/21 Interval History: seen and examined this AM slowly improving able to ambulate but desaturates to high 80s on oxygen Review of Systems negative except HPI Physical Exam Vital Signs: Vital Signs: Last Vital Signs Temp 97.9 F 07/03/21 07:14 Pulse 76 07/03/21 08:18 Resp 18 07/03/21 08:18 BP 157/69 H 07/03/21 07:14 Pulse Ox 97 07/03/21 07:14 Oxygen Flow Rate 2 06/29/21 10:38 BMI result Body Mass Index 47.0 Const: Other: General - no acute distress, appears comfortable Cardiovascular - regular rate and rhythm, S1-S2 Lungs - mild distress with exertion, scattered wheezing Abdomen - soft, nontender, no rebound or guarding Extremities - no edema bilaterally Neuro - awake and alert, no focal deficits Objective Data Active Medications Acetaminophen (Acetaminophen 325 Mg Tablet) 650 mg PO Q6H PRN PRN Reason: Pain, Mild (Pain Scale 1-3) Last Admin: 07/01/21 15:37 Dose: 650 mg Documented by: MONSE Albuterol/Ipratropium (Albuterol/Iprat 2.5/0.5mg 3 Ml Ampul.Neb) 3 ml INHALE RQ6H WHILE AWAKE [facility] Last Admin: 07/03/21 08:18 Dose: 3 ml Documented by: SAHIL Albuterol/Ipratropium (Albuterol/Iprat 2.5/0.5mg 3 Ml Ampul.Neb) 3 ml INHALE RQ4H PRN PRN Reason: shorntess of breath/wheezing Aspirin (Aspirin Enteric Coated 81 Mg Tablet.) 81 mg PO DAILY [facility] Last Admin: 07/03/21 07:36 Dose: 81 mg Documented by: NEGRA Atorvastatin Calcium (Atorvastatin Calcium 80 Mg Tablet) 80 mg PO BEDTIME [facility] Last Admin: 07/02/21 20:37 Dose: 80 mg Documented by: ROSAURA Bupropion HCl (Bupropion Hcl Xl 150 Mg Tab.Er.24h) 150 mg PO DAILY [facility] Last Admin: 07/03/21 07:36 Dose: 150 mg Documented by: NEGRA Cefuroxime Axetil (Cefuroxime Axetil 250 Mg Tablet) 250 mg PO Q12H [facility] Last Admin: 07/02/21 23:33 Dose: 250 mg Documented by: ROSAURA Dextrose (Dextrose 50 % 25 Gm/50 Ml Vial) 25 gm IVPUSH Q15M PRN; Protocol PRN Reason: per Hypoglycemia Standing Ord. Docusate Sodium (Docusate Sodium 100 Mg Capsule) 100 mg PO DAILY PRN PRN Reason: Constipation Fluticasone Propionate (Fluticasone Propionate Nasal 16 Gm [place]) 1 spray NOSTRIL-B DAILY [facility] Last Admin: 07/03/21 07:38 Dose: Not Given Documented by: NEGRA Non-Admin Reason: Patient Refused Gabapentin (Gabapentin 300 Mg Capsule) 300 mg PO DAILY [facility] Last Admin: 07/03/21 07:36 Dose: 300 mg Documented by: NEGRA Gabapentin (Gabapentin 300 Mg Capsule) 900 mg PO BEDTIME [facility] Last Admin: 07/02/21 20:37 Dose: 900 mg Documented by: ROSAURA Glucose (Glucose Gel 15 Gm Gel..Gram.) 15 gm PO Q15M PRN; Protocol PRN Reason: per Hypoglycemia Standing Ord. Guaifenesin/Dextromethorphan (Guaifenesin Dm 100/10/5 Ml 5 Ml Syrup) 5 ml PO Q4H PRN PRN Reason: Cough Last Admin: 07/02/21 20:44 Dose: 5 ml Documented by: ROSAURA Heparin Sodium (Porcine) (Heparin Sodium,Porcine 5,000 Unit/Ml Vial) 5,000 unit SUBCUT Q12H [facility] Last Admin: 07/03/21 02:30 Dose: 5,000 unit Documented by: ROSAURA Hydroxyzine HCl (Hydroxyzine Hcl 25 Mg Tablet) 25 mg PO BID [facility] Last Admin: 07/03/21 07:36 Dose: 25 mg Documented by: NEGRA Insulin Glargine (Insulin Glargine,Hum.Rec.Anlog 100 Unit/Ml 10 Ml Vial) 14 unit SUBCUT DAILY [facility] Last Admin: 07/03/21 07:37 Dose: 14 unit Documented by: NEGRA Insulin Human Lispro (Insulin Lispro 100 Unit/Ml 3 Ml Vial) 0 unit SUBCUT QIDACHS [facility]; Protocol Last Admin: 07/03/21 07:37 Dose: 6 unit Documented by: NEGRA Methylprednisolone Sodium Succinate (Methylprednisolone Sod Succ 40 Mg/Ml Vial) 40 mg IVPUSH BID [facility] Last Admin: 07/03/21 07:37 Dose: 40 mg Documented by: NEGRA Montelukast Sodium (Montelukast Sodium 10 Mg Tablet) 10 mg PO BEDTIME [facility] Last Admin: 07/02/21 20:37 Dose: 10 mg Documented by: ROSAURA Pharmacy Consult (Consult Rx Perform Med Rec) 1 each MISCELLANE ONCE PRN PRN Reason: Consult order Ropinirole HCl (Ropinirole Hcl 2 Mg Tablet) 2 mg PO BID [facility] Last Admin: 07/03/21 07:36 Dose: 2 mg Documented by: NEGRA Sodium Chloride (0.9 % Sodium Chloride Flush 3 Ml Syringe) 3 ml IVFLUSH QSHIFT [facility] Last Admin: 07/03/21 07:37 Dose: 3 ml Documented by: NEGRA Trazodone HCl (Trazodone Hcl 50 Mg Tablet) 250 mg PO BEDTIME [facility] Last Admin: 07/02/21 20:37 Dose: 250 mg Documented by: ROSAURA Labs CBC & Chem 7: 07/02/21 05:23 07/02/21 05:23 Labs: Laboratory Results - last 24 hr 07/02/21 07/02/21 07/02/21 11:12 16:14 19:09 POC Glucose 307 H 331 H 254 H 07/03/21 07:12 POC Glucose 272 H Microbiology Microbiology Results: Microbiology 06/29/21 Unknown Urine Culture - Preliminary Urine clean catch - Urine almaguer top Klebsiella oxytoca Assessment and Plan (1) COPD exacerbation: Status: Acute Assessment and Plan: This is a 71 old female with history COPD /chronic respiratory failure on 2 L of home oxygen, morbid obesity, hypoventilation, diabetes presents to the emergency department with 5 day history of increasing shortness of breath on exertion and productive cough Acute COPD exacerbation/ chronic respiratory failure slowly improving continue iv steroids an additional 24 hours and reassess continue scheduled bronchodilators AGUSTIN on CKD3 this may be her new baseline monitor UTI due to klebsiella oxytoca pt does not endorse any urinary symptoms continue ceftin blood cx negative cx sent to ref. lab DM lantus + SSI, POCs, ADA diet hold orals HLD continue HLD mood continue bupropion, hydroxizine RLS continue ropinerole, gabapentin Full Code DVT pptx, Subcut. heparin Quality Stroke Does the patient have a stroke diagnosis?: No VTE Prior VTE?: No VTE Risk Level:: Medical - moderate - high VTE Device Contraindication: N/A - Device Ordered VTE Drug Contraindication: N/A - Med Ordered
[2021-07-03 11:18] LABS: Glucose, Whole Blood 233 mg/dL (60-115)
[2021-07-03] MEDS: Acetaminophen 325 MG TABLET 650 MG PO ×2 (13:44→23:03)
--- NOTE | 2021-07-03 14:53 | MHC.CM.PN ---
Addendum entered by Tricia Philip 07/03/21 15:33: [facility] WILLING TO OFFER BUT UNABLE TO DO SO UNTIL EARLY NEXT WEEK. MD NOTIFIED Original Note: PATIENT STATES SHE WANTS TO GO HOME WITH [facility] SERVICES AND NOT GO TO REHAB. SHE IS AGREEABLE TO ANY AGENCY THAT WILL OFFER AND HAS NO PREFERENCE. REFERRAL PLACED TO NA. CASE MANAGEMENT TO FOLLOW AND UPDATE NEEDED. PATIENT IS OUT OF HER NEBULIZER VIALS AND SHE WILL NEED AN RX FOR THIS
[2021-07-03 16:10] LABS: Glucose, Whole Blood 355 mg/dL (60-115)
--- NOTE | 2021-07-03 16:21 | MHC.CM.PN ---
PLAN IS HOME TOMORROW WITH [facility]. AWARE THAT AGENCY WILL NOT BE ABLE TO START UNTIL EARLY NEXT WEEK.
[2021-07-03 20:15] LABS: Glucose, Whole Blood 284 mg/dL (60-115)
[2021-07-03] MEDS: guaiFENesin DM 100/10/5 ML 5 ML SYRUP PO (20:38)
[2021-07-03] MEDS: Gabapentin 300 MG CAPSULE 900 MG PO (20:39)
[2021-07-03] MEDS: Atorvastatin Calcium 80 MG TABLET PO (20:39)
[2021-07-03] MEDS: traZODone HCL 50 MG TABLET 250 MG PO (20:39)
[2021-07-03] MEDS: Montelukast Sodium 10 MG TABLET PO (20:39)
[2021-07-04] VITALS: BP 130/59; PULSE 75; RESP 16; TEMP 36.5; O2SAT 95
[2021-07-04] MEDS: Heparin Sodium,Porcine 5,000 UNIT/ML VIAL 5000 UNIT SUBCUT (03:50)
[2021-07-04 04:00] VITALS: BP 152/64; PULSE 82; RESP 16; TEMP 36.3; O2SAT 93
[2021-07-04 07:16] VITALS: BP 163/72; PULSE 64; RESP 20; TEMP 36.5; O2SAT 96
[2021-07-04 07:42] LABS: Glucose, Whole Blood 343 mg/dL (60-115)
[2021-07-04] MEDS: Aspirin Enteric Coated 81 MG TABLET.DR PO (07:42)
[2021-07-04] MEDS: Gabapentin 300 MG CAPSULE PO (07:42)
[2021-07-04] MEDS: hydrOXYzine HCL 25 MG TABLET PO (07:42)
[2021-07-04] MEDS: rOPINIRole HCL 2 MG TABLET PO (07:42)
[2021-07-04] MEDS: buPROPion HCl XL 150 MG TAB.ER.24H PO (07:42)
[2021-07-04] MEDS: Insulin Glargine,Hum.rec.anlog 100 UNIT/ML 10 ML VIAL 14 UNIT SUBCUT (07:43)
[2021-07-04] MEDS: Insulin Lispro 100 UNIT/ML 3 ML VIAL SUBCUT (07:43)
[2021-07-04] MEDS: methylPREDNISolone Sod Succ 40 MG/ML VIAL IVPUSH (07:43)
[2021-07-04] MEDS: 0.9 % Sodium Chloride Flush 3 ML SYRINGE IVFLUSH (07:43)
[2021-07-04] MEDS: Albuterol/Iprat 2.5/0.5MG 3 ML AMPUL.NEB INHALE (09:22)
[2021-07-04 09:23] VITALS: PULSE 82; RESP 22; O2SAT 98
--- NOTE | 2021-07-04 10:19 | W.MHC.F2F ---
Service Date Service Date: 07/04/21 Encounter Date of encounter: 07/04/21 Reasons for Services Reason for physical therapy: home safety and mobility, therapeutic exercises and gait/transfer training MD Overseeing Care: Shelbi Perez Homebound: Leaving the home is medically contraindicated at this time without the asist of a device and/or another person due th the listed conditions above and below. Reason homebound: shortness of breath with minimal effort, poor balance / fall risk and weakness related to hospital stay Certification: Based on the above findings, I certify that this patient is confined to the home and needs intermittent shelter care, physical therapy and/or speech therapy, or continues to need occupational therapy. The patient is under my care, and I have initiated the establishment of the plan of care. The patient will be followed by a physician who will periodically review the plan of care.
--- NOTE | 2021-07-04 11:19 | P.DS_ITS ---
DS: Providers Provider Date of Service: 07/04/21 Date of admission: 06/29/21 14:08 Date of discharge: 07/04/21 Primary care physician: Shelbi Perez MD Attending physician on discharge: Kingsley Tang Discharging clinician: Elmira Henry DS: Diagnosis Discharge Diagnosis (1) COPD exacerbation: Status: Acute DS: Summary Hospital Course Hospital Course: From H&P This is a 71 female with history chronic respiratory failure / COPD who presents to the emergency department cough.? Patient reports 5 days increasing shortness breath especially with exertion.? This has been associated with a cough productive of thick phlegm.? She denies any associated fever, chills, recent sick contacts.? In the emergency department she was noted to be tachypneic on arrival. ? Workup was significant for leukocytosis of 14.9 as well as elevated creatinine of 1.57.? Chest x-ray showed no evidence of pneumonia.? COVID, flu, RSV screen were negative.? She received multiple updraft treatments as well as systemic steroids but continued to be tachypneic and continued to wheeze therefore the decision was made to admit her for further management. Acute COPD exacerbation: patient was started on Systemic steroids and initially started on azithromycin as well as breathing treatments. Her antibiotics were changed from azithromycin Ceftin due to concern for UTI. she was maintained on her home 2 L of oxygen. Over the past 2 days her breathing and cough improved significantly and she is now stable for discharge home. UTI. UA was obtained as part of workup in the ED. Urine culture grew Klebsiella oxytoca. Sensitivities are not yet back and were sent out to reference lab for susceptibility testing however she had no urinary symptoms. she was treated with ceftin and completed course of antibiotics while in the hospital. she was evaluated by Physical therapy who recommended SNF. patient declined SNF and opted to return home with home physical therapy. Physical therapy will likely not be available to start with her until Thursday. This was discussed with the patient however she prefers to spend the holiday at home and requests to be discharged home. Time Spent with Patient Time attestation: Total time spent providing and/or coordinating discharge services: Discharge coordination time: Greater than 30 minutes Quality: Stroke Does the patient have a stroke diagnosis?: No Physical Exam Vital Signs: Vital Signs: Last Vital Signs Temp 97.7 F 07/04/21 07:16 Pulse 82 07/04/21 09:23 Resp 22 H 07/04/21 09:23 BP 163/72 H 07/04/21 07:16 Pulse Ox 96 07/04/21 07:16 Oxygen Flow Rate 2 06/29/21 10:38 BMI result Body Mass Index 47.0 DS: Data Data Completed and Pending Completed studies during hospitalization [Text1]: Procedures Replacement of Left Knee Joint with Synthetic Substitute, Uncemented, Open Approach (05/28/20) Labs on day of discharge: Laboratory Results - last 24 hr 07/03/21 07/03/21 07/03/21 11:11 16:01 20:11 POC Glucose 233 H 355 H* 284 H 07/04/21 07:16 POC Glucose 343 H Preliminary micro results at discharge 06/29/21 Unknown Urine Culture - Preliminary Urine clean catch - Urine almaguer top Klebsiella oxytoca 06/29/21 12:33 Blood Culture - Preliminary Blood - Venous No growth after 48 hours. 06/29/21 11:14 Blood Culture - Preliminary Blood - Venous No growth after 48 hours. Discharge Plan Discharge Patient Disposition: Home Health Service Discharge Diagnosis: COPD exacerbation Renal insufficiency Referrals: Shelbi Perez MD [Primary Care Provider] - 1 Week Discharge Medications: New amlodipine [Norvasc] 5 mg tablet 5 mg PO DAILY 30 Days Qty: 30 RF: 0 prednisone 20 mg tablet 40 mg PO DAILY 5 Days Qty: 10 RF: 0 Continued Levemir FlexTouch U-100 Insuln 100 unit/mL (3 mL) insulin pen 20 unit subcut QAM 90 Days Qty: 18 RF: 1 montelukast 10 mg tablet 10 mg PO BEDTIME 90 Days Qty: 90 RF: 0 hydroxyzine pamoate 25 mg capsule 1 cap PO BID RF: 0 ropinirole 1 mg tablet 2 mg PO BID RF: 0 fluticasone propionate 50 mcg/actuation spray,suspension 1 spray intranasal DAILY RF: 0 gabapentin 300 mg capsule 300 mg PO DAILY RF: 0 metformin 500 mg tablet 500 mg PO DAILY RF: 0 atorvastatin 80 mg tablet 80 mg PO BEDTIME RF: 0 aspirin [Adult Aspirin Regimen] 81 mg tablet,delayed release (DR/EC) 81 mg PO DAILY 30 Days Qty: 30 RF: 0 gabapentin 300 mg capsule 900 mg PO BEDTIME RF: 0 trazodone 100 mg tablet 250 mg PO BEDTIME RF: 0 bupropion HCl 150 mg tablet extended release 24 hr 150 mg PO QAM RF: 0 albuterol sulfate 0.63 mg/3 mL solution for nebulization 0.63 mg inhalation QID PRN (Reason: shortness of breath or wheezing) Qty: 75 RF: 0 albuterol sulfate [ProAir HFA] 90 mcg/actuation HFA aerosol inhaler 2 puff inhalation Q4-6H PRN (Reason: shortness of breath or wheezing) 30 Days Qty: 8.5 RF: 2 Discontinued lisinopril 5 mg tablet 5 mg PO DAILY 90 Days Qty: 90 RF: 0 No Action (DME) lancets 28 gauge misc See Rx Instructions ea topical TID Qty: 100 RF: 3 (DME) pen needle, diabetic 31 gauge x 3/16 needle See Rx Instructions ea subcut TID Qty: 100 RF: 1 (DME) Depend Underwear For Women S-M Misc See Rx Instructions .ROUTE .MEDSUPPLY Qty: 64 RF: 6 (DME) AeroEclipse II Nebulizer Misc See Rx Instructions .ROUTE .MEDSUPPLY Qty: 1 RF: 0 (DME) oxygen-air delivery systems Device See Rx Instructions .ROUTE .MEDSUPPLY Qty: 1 RF: 0 Discharge Orders: Discharge Order (Routine); Ordered 07/04/21 Ordered By: Elmira Henry Diet: diabetic diet Activity on Discharge: As tolerated Stand Alone Forms: Patient Portal Discharge page Other Ambulatory Orders: Basic Metabolic Panel (Routine) Timeframe: 1 Week Facility: [facility] - Location: Laboratory Ordered By: Elmira Henry Care Plan Goals: see below Health Concerns: COPD exacerbation renal insufficiency. UTI Plan of Treatment: COPD.Complete course of steroids Abnormal kidney function. Labs should be repeated in one weeks. Blood pressure: Do not take lisinopril. you have been started on a new blood pressure medication Norvasc, please take as prescribed. Call to schedule follow up with PCP for blood pressure and kidney function monitoring Assessment: see discharge summary
--- NOTE | 2021-07-04 12:22 | MHC.CM.PN ---
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
== END 2021-07-04 11:30 | disposition home health service (06) | DRG 191 ==
LOC: HO.ED 14:04 → HO.EDOVER 14:35 → HO.S3 16:58
PROVIDERS: Family Medicine; Nurse Practitioner Acute Care; Admitting Provider Physician Assistant Medical; Emergency Provider Emergency Medicine; PCP Internal Medicine; Visit Provider Physician Assistant Medical
DX: J44.1 Chronic obstructive pulmonary disease with (acute) exacerbation (principal); N17.9 Acute kidney failure, unspecified; N39.0 Urinary tract infection, site not specified; J96.10 Chronic respiratory failure, unspecified whether with hypoxia or hypercapnia; Z68.42 Body mass index [BMI] 45.0-49.9, adult; E66.2 Morbid (severe) obesity with alveolar hypoventilation; E11.22 Type 2 diabetes mellitus with diabetic chronic kidney disease; G25.81 Restless legs syndrome; E78.5 Hyperlipidemia, unspecified; F39 Unspecified mood [affective] disorder; N18.30 Chronic kidney disease, stage 3 unspecified; Z99.81 Dependence on supplemental oxygen; Z20.822 Contact with and (suspected) exposure to COVID-19; Z79.4 Long term (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 insulin; Z79.51 Long term (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 inhaled steroids; Z79.82 Long term (current) use of aspirin; Z79.899 Other long term (current) drug therapy
CPT/HCPCS: 0241U; 36415; 71045; 80048; 80053; 80076; 81001; 82043; 82947; 83036; 83605; 83690; 83880; 84484; 85025; 85027; 85610; 85730; 87040; 87086; 87088; 94640; 96365; 96375; 97110; 97116; 97162; 99285; J0456; J0696; J2920; J2930

== ENCOUNTER 2021-07-07 10:43 | Inpatient (IN) | payer MEDICARE, MEDICAID, SELFPAY ==
--- NOTE | ~2021-07-07 | CT_ITS ---
EXAMINATION: CT CHEST WITHOUT CONTRAST CLINICAL INFORMATION: Shortness of breath COMPARISON: Chest x-ray of same day and CT of the chest of January 27, 2019 TECHNIQUE: Multidetector volumetric CT imaging of the chest was done. Axial MIP volume rendering provided. Sagittal and coronal reformatted images were obtained. This CT examination was performed using dose optimization techniques as appropriate, variously including the following: *Automated exposure control *Adjustment of mA and/or kV according to patient size (this includes techniques or standardized protocols for targeted exams where dose is matched to indication/reason for exam; i.e. extremities or head) *Use of iterative reconstruction technique DLP: 546 mGy-cm FINDINGS: LUNGS: Central airways are patent. No significant bronchial wall thickening is seen. No bronchiectasis is noted. There are some scattered sub-4 mm densities seen. Calcified granulomas present. There are some areas of atelectasis or scarring seen in the lower lobes bilaterally. MEDIASTINUM: Visualized thyroid gland appears unremarkable. Heart upper limits of normal in size. No pericardial effusion. No hilar or mediastinal lymphadenopathy appreciated. No thoracic aortic aneurysm. PLEURA: There is no pleural effusion. No pleural mass or thickening. AXILLA: No lymphadenopathy. UPPER ABDOMEN: Unremarkable. OSSEOUS STRUCTURES: There are multiple old healed left rib fractures. There is a 9 mm sclerotic lesion seen about the anterior superior aspect of the T11 vertebral body without definite bony destruction but which could represent a sclerotic metastases and clinical correlation with possible breast malignancy is suggested Degenerative changes of both shoulders evident. There is multilevel degenerative disc disease seen. CT/CT chest wo con IMPRESSION: No significant acute parenchymal disease within the lungs. Single sclerotic lesion within the T11 vertebral body as described. Old granulomatous disease. According to the UPDATED 2017 Fleischner Society recommendations, the advised follow-up imaging for solid nodules < 6 mm is: LOW RISK PATIENT: No routine follow-up. HIGH RISK PATIENT: Optional CT at 12 months.
--- NOTE | ~2021-07-07 | NM_ITS ---
EXAMINATION: NM BONE SCAN OF THE WHOLE BODY CLINICAL INFORMATION: Back pain. Single sclerotic lesion in the T11 vertebral body. COMPARISON: No previous lung scan is available for comparison. Radiographs of the chest dated 07/07/2021 are available for comparison. CT scan of the chest dated 07/07/2021 is available for comparison. CT scan of the abdomen and pelvis dated 01/29/2021 is also available for comparison. Multiple additional CT scans are available for comparison dating back to CT scan of the chest dated 09/12/2016. TECHNIQUE: Multiple gamma scintillation camera images of the whole body were performed 2.5 hours following the intravenous administration of 34 mCi Tc-99m MDP. FINDINGS: In the head, no significant abnormalities are present. In the thoracic cage and upper extremities, there is mildly increased activity in the acromioclavicular joints bilaterally and the right sternoclavicular joint. Faintly increased activity in the left sternoclavicular joint and sternomanubrial junction is also noted. All of these abnormalities are likely arthritic in etiology. In the spine, there is a minimal thoracolumbar scoliosis with lumbar convexity to the left. No significant foci of abnormally increased activity are present in the spine. In particular, the T11 vertebral body appears unremarkable. In the pelvis, there is a small focus of mildly increased activity adjacent to the right ischial tuberosity and this appears to correspond to degenerative osteophyte at this site on the 2020 CT scan. In the lower extremities, a photopenic defect from a well-healed left total knee prosthesis is noted. Mildly increased activity is present in both knees without a discrete focal component on either side. No other definite bony abnormalities are noted. The urinary bladder and faint visualization of both kidneys are noted. The CT scan dated 07/07/2021 shows a densely sclerotic subcentimeter focus anteriorly in the left superior endplate of T11. This is been present on multiple prior CT scans, and appears slightly larger than on the earliest available CT scan dated 09/12/2016, but appears stable when compared to the 01/29/2021 CT scan. NM/NM bone scan whole body IMPRESSION: 1. No significant abnormality is present on this bone scan in the T11 vertebral body. This suggests a chronic CT sclerotic focus present at this site is likely a nonaggressive lesion such as a benign bone island. On the available CT scans, this appears stable since 01/29/2021, but slightly larger than on the least recent study dated 09/12/2016, although it was clearly evident on that study. 2. A few additional mild nonspecific abnormalities are noted as described above and these are all likely arthritic or traumatic in etiology. None of these abnormalities is strongly suspicious for metastatic disease.
--- NOTE | ~2021-07-07 | XR_ITS ---
EXAMINATION: XR CHEST CLINICAL INFORMATION: Shortness of breath COMPARISON: Chest x-ray on 06/29/2021 TECHNIQUE: 2 views of the chest were obtained. FINDINGS: No significant abnormality is noted involving the heart, lungs, mediastinum, bony thorax or soft tissues. XR/XR chest 2V IMPRESSION: Unremarkable examination.
--- NOTE | 2021-07-07 10:57 | ECG_ITS ---
Test Reason : SOB Blood Pressure : / mmHG Vent. Rate : 089 BPM Atrial Rate : 089 BPM P-R Int : 144 ms QRS Dur : 084 ms QT Int : 372 ms P-R-T Axes : 061 033 023 degrees QTc Int : 452 ms Normal sinus rhythm Normal ECG When compared with ECG of 05-FEB-2021 13:00, No significant change was found Referred By: Janett Talavera Electronically Signed By:Isaías Denise
--- NOTE | 2021-07-07 10:59 | ED.SOB ---
HPI - SOB/Dyspnea General Chief Complaint: Back Pain/Injury Stated Complaint: lower back pain Time Seen by Provider: 07/07/21 10:47 Source: patient and EMS Mode of arrival: EMS Limitations: no limitations History of Present Illness HPI Narrative: ?71-year-old female with a past medical history of COPD on 2L NC chronically, obstructive sleep apnea, restrictive airway disease, GERD, HLD, DM here with complaints of acute on chronic SOB x 2 days with productive cough, mid to low back pain. Of note the patient was admitted to this facility from 06/29-07/04 for COPD exacerbation, acute kidney injury. Patient tells me after leaving she felt well for about a day and then her symptoms returned. She is currently on prednisone 40 mg daily. The patient denies any chest pain, leg swelling, fevers, chills, body aches, joint pain, muscle aches. No radiation of back pain. No incontinence. No numbness or tingling of lower extremities. No saddle anesthesia Related Data Home Medications Medication Instructions Recorded Confirmed bupropion HCl 150 mg 24 hr tablet, 150 mg PO DAILY 04/25/20 07/07/21 extended release oxygen-air delivery systems #1 04/25/20 06/29/21 trazodone 100 mg tablet 250 mg PO BEDTIME 04/25/20 07/07/21 gabapentin 300 mg capsule 900 mg PO BEDTIME cap 05/13/21 07/07/21 atorvastatin 80 mg tablet 80 mg PO BEDTIME 06/29/21 07/07/21 fluticasone propionate 50 1 spray INTRANASAL DAILY 06/29/21 07/07/21 mcg/actuation nasal spray,suspension gabapentin 300 mg capsule 300 mg PO DAILY 06/29/21 07/07/21 hydroxyzine pamoate 25 mg capsule 1 cap PO BID 06/29/21 07/07/21 metformin 500 mg tablet 500 mg PO DAILY 06/29/21 07/07/21 ropinirole 1 mg tablet 2 mg PO BID 06/29/21 07/07/21 Previous Rx's Medication Instructions Recorded nebulizers (AeroEclipse II #1 ea 02/05/21 Nebulizer) albuterol sulfate 0.63 mg/3 mL 0.63 mg (3 mL) INHALATION QID PRN 02/21/21 solution for nebulization #75 ml albuterol sulfate 90 mcg/actuation 2 puff INHALATION Q4-6H PRN 30 05/13/21 aerosol inhaler (ProAir HFA) Days #8.5 g insulin detemir U-100 100 unit/mL 20 unit (0.2 mL) SUBCUT QAM 90 06/24/21 (3 mL) subcutaneous pen (Levemir Days #18 ml FlexTouch U-100 Insulin) lancets 28 gauge #100 ea 06/24/21 montelukast 10 mg tablet 10 mg PO BEDTIME 90 Days #90 tab 06/24/21 diaper,brief,adult,disposable #64 ea 06/26/21 (Depend Underwear For Women S-M) pen needle, diabetic 31 gauge x #100 ea 06/26/21 3/16 aspirin 81 mg tablet,delayed 81 mg PO DAILY 30 Days #30 tab 07/03/21 release (Adult Aspirin Regimen) amlodipine 5 mg tablet (Norvasc) 5 mg PO DAILY 30 Days #30 tab 07/04/21 prednisone 20 mg tablet 40 mg PO DAILY 5 Days #10 tab 07/04/21 Allergies Allergy/AdvReac Type Severity Reaction Status Date / Time adhesive tape [ADHESIVE TAPE] Allergy Intermediate RASH Verified 06/26/21 10:38 trimethobenzamide Allergy Mild NAUSEA Verified 06/26/21 10:38 [From TIGAN] environmental Allergy Intermediate Nasal Uncoded 06/26/21 10:38 congestion Review of Systems Review of Systems: Yes all other systems are reviewed and are negative Constitutional: Constitutional: Reports no additional constitutional complaints, Denies body ache(s), Denies chills, Denies fever(s), Denies headache(s) and Denies weakness Eyes: Eyes: Reports no additional eye complaints and Denies change in vision ENT: Reports system reviewed and no additional complaints, except as documented, Denies dizziness, Denies headache(s), Denies nasal congestion, Denies nasal discharge and Denies neck pain Cardiovascular: Cardiovascular: Reports no additional cardiovascular complaints, Denies chest pain, Denies leg edema and Reports dyspnea Respiratory: Respiratory: Reports no additional respiratory complaints, Reports cough and Reports dyspnea Gastrointestinal: Gastrointestinal: Reports no additional gastrointestinal complaints, Denies abdominal pain, Denies diarrhea, Denies nausea and Denies vomiting Genitourinary: Genitourinary: Reports no additional female genitourinary complaints and Denies urinary incontinence Musculoskeletal: Musculoskeletal: Reports no additional musculoskeletal complaints, Reports back pain, Denies arthralgias, Denies joint swelling, Denies neck pain, Denies numbness and Denies tingling Integumentary/Breasts: Skin/Breast: Reports system reviewed and no additional complaints, except as docu and Denies rash Neurologic: Reports system reviewed and no additional complaints, except as documented, Denies Abnormal speech present, Denies dizziness, Denies headache(s), Denies numbness, Denies tingling and Denies weakness [facility] Past Medical History Attestation statement: The following information was validated with the patient. Source: old records reviewed and nursing notes reviewed Medical History Allergic rhinitis Arthritis Back pain Constipation due to opioid therapy COPD (chronic obstructive pulmonary disease) COPD (chronic obstructive pulmonary disease) COPD exacerbation CPAP (continuous positive airway pressure) dependence 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, managed as type 1 DMII (diabetes mellitus, type 2) Elevated cholesterol GERD (gastroesophageal reflux disease) History of adrenal adenoma History of diverticulitis History of restless legs syndrome Hx SBO Hyperlipidemia No family history of adverse response to anesthesia Nocturnal hypoxemia Obesity (BMI 30-39.9) ALDO (obstructive sleep apnea) ALDO (obstructive sleep apnea) Osteoarthritis of left knee Osteochondroma of left femur Restrictive airway disease Sleep apnea Wears dentures Wears glasses Surgical History H/O colonoscopy H/O excision of mass H/O exploratory laparotomy History of appendectomy History of arthroscopy of left knee History of cholecystectomy History of hysterectomy History of oophorectomy History of partial colectomy History of surgery Hx of cataract extraction Family History Family History Father HTN (hypertension) Diabetes mellitus Mother HTN (hypertension) Liver cancer Social History Social History 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: Other 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 Other:: ex Housing: Apartment Are you a primary daytime caregiver to a significant other at home: No Do you presently have visiting nurse or other home services: No Alcohol intake: never Patient Tobacco Use Status: Never used Tobacco Second Hand Smoke Exposure: Yes Advance Directives: Yes Advance Directives Information Provided: No Advance Directives on File: No service: No Current occupational status: unemployed Physical Exam Vital Signs: Vital Signs: Last Vital Signs Temp 98.1 F 07/07/21 14:57 Pulse 87 07/07/21 14:57 Resp 18 07/07/21 14:57 BP 125/50 L 07/07/21 14:57 Pulse Ox 94 07/07/21 14:57 Oxygen Flow Rate 2 07/07/21 11:13 BMI result Body Mass Index 53.8 Const: General: cooperative, healthy appearing, comfortable and no acute distress Orientation/consciousness: patient oriented x3 Limitations: no limitations HENMT: Head: Yes normal to inspection Ears: hearing grossly normal bilaterally and TM's normal bilaterally General nose exam: Normal external nose present Face and sinus: Yes normal facial exam Mouth: Normal oral and palatal mucosa present Throat: Yes posterior oropharynx normal, Yes tonsils normal and Yes uvula midline Eyes: General: appearance normal, both eyes and all related structures Pupils: Equal, round and reactive pupils present Neck: Neck: Yes normal visual inspection, Yes full ROM, Yes no lymphadenopathy and Yes no meningeal signs Chest: Chest palpation & inspection: normal inspection of the chest Resp: Other: Tachypnea with a rate of 22, expiratory wheezing throughout, coarse breath sounds anteriorairway. Cardio: Rate: regular rate Rhythm: regular rhythm Peripheral pulses: Peripheral pulses 2+ throughout GI: Inspection: Yes normal to inspection Palpation (GI): Soft to palpation and nontender Auscultation: normal bowel sounds Back/Spine/Pelvis: Other: Tenderness in the midthoracic spine and into the mid to lower lumbar spine with no step-offs or deformities. There is also tenderness in the bilateral soft tissue area of the thoracic spine with a palpable muscle spasm. No CVA tenderness. Thoracic/Lumbar Spine: thoracic and lumbar spine normal to inspection Skin: General skin exam: no rashes or lesions noted Neuro: General: patient oriented x3, no meningeal signs, no focal motor deficits and normal sensation to monofilament Cranial nerves: Yes Equal, round and reactive pupils present Cognition (Neuro): normal cognition Speech: No Abnormal speech present Gait exam (Neuro): Normal gait present Motor exam (neuro): 5/5 motor strength present throughout Extrem: General: Yes normal to inspection Course Course Course Narrative: 71-year-old female with a history of COPD on chronic oxygen here with reports of increasing shortness of breath for last 2 days with productive cough and mid to low back pain with no known injury or trauma. On exam the patient has mild tachypnea, inspiratory x-ray wheezing throughout, diffuse back tenderness. No neurological deficits or red flag symptoms. Per patient pain is worsened with palpation of the back and is not worsened with any breathing or coughing. Recent admit for COPD exacerbation discharged on June 04. Will check labs, EKG, chest x-ray, COVID screen. Will give DuoNeb, magnesium, Solu-Medrol, analgesia and re-assess. 1330-labs show mild leukocytosis unchanged from previous. Renal function at baseline. Chest x-ray shows no acute finding. Due to symptoms will check CT chest. 1340-continued wheezing, cough, tachypnea. Will repeat nebulizer, give cough suppressant, low dose narcotic. 1700-continued wheezing. CT chest shows no signs of infection. Plan for admit for COPD exacerbation. Tachypnea from chronic lung disease and not infection. Call out to Medicine (Dr Mendoza) who accepted admission. MDM - SOB/Dyspnea Medical Records Attestation: I reviewed the patient's medical records. Lab Data Attestation: I reviewed the patient's lab results. Result diagrams: 07/07/21 11:47 07/07/21 11:47 Labs: Lab Results 07/07/21 07/07/21 07/07/21 Range/Units 11:46 11:47 11:47 WBC 17.0 H (4.8-10.8) X10*3/uL RBC 3.79 L (4.20-5.50) X10*6/uL Hgb 10.8 L (12.0-16.0) g/dl Hct 34.0 L (37.0-47.0) % MCV 89.7 (80.0-98.0) fL MCH 28.5 (27.0-33.0) pg MCHC 31.8 (31.0-35.0) g/dl RDW 13.1 (11.0-16.0) % Plt Count 263 (160-400) X10*3/uL MPV 11.9 (9.4-12.3) fL Immature Gran % (Auto) 1.8 H (0.0-0.4) % Neut % (Auto) 80.1 H (45-73) % Lymph % (Auto) 12.6 L (20-40) % [place] % (Auto) 3.3 (2-11) % Eos % (Auto) 2.1 (0-4) % Baso % (Auto) 0.1 (0-2) % Lymph # (Auto) 2.1 (1.2-4.9) X10*3/uL [place] # (Auto) 0.6 (0.1-1.2) X10*3/uL Eos # (Auto) 0.4 (0.0-0.4) X10*3/uL Baso # (Auto) 0.0 (0.0-0.2) X10*3/uL Abs Immat Gran (auto) 0.31 H (0.00-0.03) X10*3/uL Absolute Neuts (auto) 13.6 H (2.0-8.3) x10*3/uL Absolute Nucleated RBC 0.000 (0.0-0.012) X10*3/uL Nucleated RBC % (auto) 0.0 (0.0-0.2) /100WBC PT 10.8 (9.9-13.0) SEC INR 1.0 (0.9-1.1) Sodium (135-145) mmol/L Potassium (3.3-5.1) mmol/L Chloride (96-108) mmol/L Carbon Dioxide (22-29) mmol/L Anion Gap (12-20) BUN (9-16) mg/dL Creatinine (0.5-1.4) mg/dL Estim Creat Clear Calc Estimated GFR Random Glucose (60-115) mg/dL Lactic Acid (0.5-2.0) mmol/L Calcium (8.4-10.2) mg/dL Magnesium (1.6-2.6) mg/dL Total Bilirubin (0.0-1.0) mg/dL Direct Bilirubin (0.0-0.5) mg/dL AST (5-31) U/L ALT (0-31) U/L Alkaline Phosphatase (39-117) U/L Troponin I High Sens (<3.5-17.0) ng/L B-Natriuretic Peptide (<100) pg/mL Total Protein (6.5-8.0) g/dL Albumin (3.5-5.0) g/dL Urine Color Urine Appearance Urine pH (5.0-8.0) Ur Specific [place] (1.005-1.025) Urine Protein (NEG-TRACE) MG/DL Urine Glucose (UA) (NEG) MG/DL Urine Ketones (NEG) MG/DL Urine Blood (NEG) Urine Nitrite (NEG) Ur Leukocyte Esterase (NEG) Urine RBC (0) /HPF Urine WBC (0-4) /HPF Ur Squamous Epith Cells /LPF Urine Bacteria /LPF Urine Yeast /HPF Influenza Type A (PCR) NEGATIVE (Negative) Influenza Type B (PCR) NEGATIVE (Negative) RSV RNA Qual (PCR) NEGATIVE (Negative) SARS-CoV-2 RNA (RT-PCR) NEGATIVE (Negative) 07/07/21 07/07/21 07/07/21 Range/Units 11:47 11:47 11:47 WBC (4.8-10.8) X10*3/uL RBC (4.20-5.50) X10*6/uL Hgb (12.0-16.0) g/dl Hct (37.0-47.0) % MCV (80.0-98.0) fL MCH (27.0-33.0) pg MCHC (31.0-35.0) g/dl RDW (11.0-16.0) % Plt Count (160-400) X10*3/uL MPV (9.4-12.3) fL Immature Gran % (Auto) (0.0-0.4) % Neut % (Auto) (45-73) % Lymph % (Auto) (20-40) % [place] % (Auto) (2-11) % Eos % (Auto) (0-4) % Baso % (Auto) (0-2) % Lymph # (Auto) (1.2-4.9) X10*3/uL [place] # (Auto) (0.1-1.2) X10*3/uL Eos # (Auto) (0.0-0.4) X10*3/uL Baso # (Auto) (0.0-0.2) X10*3/uL Abs Immat Gran (auto) (0.00-0.03) X10*3/uL Absolute Neuts (auto) (2.0-8.3) x10*3/uL Absolute Nucleated RBC (0.0-0.012) X10*3/uL Nucleated RBC % (auto) (0.0-0.2) /100WBC PT (9.9-13.0) SEC INR (0.9-1.1) Sodium 138 (135-145) mmol/L Potassium 4.8 (3.3-5.1) mmol/L Chloride 102 (96-108) mmol/L Carbon Dioxide 26 (22-29) mmol/L Anion Gap 15 (12-20) BUN 27 H (9-16) mg/dL Creatinine 1.50 H (0.5-1.4) mg/dL Estim Creat Clear Calc 37.1 Estimated GFR 34 Random Glucose 332 H (60-115) mg/dL Lactic Acid 1.9 (0.5-2.0) mmol/L Calcium 8.8 (8.4-10.2) mg/dL Magnesium 1.9 (1.6-2.6) mg/dL Total Bilirubin 0.2 (0.0-1.0) mg/dL Direct Bilirubin < 0.2 (0.0-0.5) mg/dL AST 19 (5-31) U/L ALT 23 (0-31) U/L Alkaline Phosphatase 40 (39-117) U/L Troponin I High Sens 4.6 (<3.5-17.0) ng/L B-Natriuretic Peptide < 10 (<100) pg/mL Total Protein 6.0 L (6.5-8.0) g/dL Albumin 3.2 L (3.5-5.0) g/dL Urine Color Urine Appearance Urine pH (5.0-8.0) Ur Specific [place] (1.005-1.025) Urine Protein (NEG-TRACE) MG/DL Urine Glucose (UA) (NEG) MG/DL Urine Ketones (NEG) MG/DL Urine Blood (NEG) Urine Nitrite (NEG) Ur Leukocyte Esterase (NEG) Urine RBC (0) /HPF Urine WBC (0-4) /HPF Ur Squamous Epith Cells /LPF Urine Bacteria /LPF Urine Yeast /HPF Influenza Type A (PCR) (Negative) Influenza Type B (PCR) (Negative) RSV RNA Qual (PCR) (Negative) SARS-CoV-2 RNA (RT-PCR) (Negative) 07/07/21 Range/Units 12:16 WBC (4.8-10.8) X10*3/uL RBC (4.20-5.50) X10*6/uL Hgb (12.0-16.0) g/dl Hct (37.0-47.0) % MCV (80.0-98.0) fL MCH (27.0-33.0) pg MCHC (31.0-35.0) g/dl RDW (11.0-16.0) % Plt Count (160-400) X10*3/uL MPV (9.4-12.3) fL Immature Gran % (Auto) (0.0-0.4) % Neut % (Auto) (45-73) % Lymph % (Auto) (20-40) % [place] % (Auto) (2-11) % Eos % (Auto) (0-4) % Baso % (Auto) (0-2) % Lymph # (Auto) (1.2-4.9) X10*3/uL [place] # (Auto) (0.1-1.2) X10*3/uL Eos # (Auto) (0.0-0.4) X10*3/uL Baso # (Auto) (0.0-0.2) X10*3/uL Abs Immat Gran (auto) (0.00-0.03) X10*3/uL Absolute Neuts (auto) (2.0-8.3) x10*3/uL Absolute Nucleated RBC (0.0-0.012) X10*3/uL Nucleated RBC % (auto) (0.0-0.2) /100WBC PT (9.9-13.0) SEC INR (0.9-1.1) Sodium (135-145) mmol/L Potassium (3.3-5.1) mmol/L Chloride (96-108) mmol/L Carbon Dioxide (22-29) mmol/L Anion Gap (12-20) BUN (9-16) mg/dL Creatinine (0.5-1.4) mg/dL Estim Creat Clear Calc Estimated GFR Random Glucose (60-115) mg/dL Lactic Acid (0.5-2.0) mmol/L Calcium (8.4-10.2) mg/dL Magnesium (1.6-2.6) mg/dL Total Bilirubin (0.0-1.0) mg/dL Direct Bilirubin (0.0-0.5) mg/dL AST (5-31) U/L ALT (0-31) U/L Alkaline Phosphatase (39-117) U/L Troponin I High Sens (<3.5-17.0) ng/L B-Natriuretic Peptide (<100) pg/mL Total Protein (6.5-8.0) g/dL Albumin (3.5-5.0) g/dL Urine Color YELLOW Urine Appearance HAZY Urine pH 5.5 (5.0-8.0) Ur Specific [place] >= 1.030 H (1.005-1.025) Urine Protein TRACE (NEG-TRACE) MG/DL Urine Glucose (UA) 500 H (NEG) MG/DL Urine Ketones NEG (NEG) MG/DL Urine Blood 2+ H (NEG) Urine Nitrite NEG (NEG) Ur Leukocyte Esterase NEG (NEG) Urine RBC 5-9 H (0) /HPF Urine WBC 1-4 (0-4) /HPF Ur Squamous Epith Cells 2+ /LPF Urine Bacteria 1+ /LPF Urine Yeast 2+ /HPF Influenza Type A (PCR) (Negative) Influenza Type B (PCR) (Negative) RSV RNA Qual (PCR) (Negative) SARS-CoV-2 RNA (RT-PCR) (Negative) Imaging Data Chest x-ray: Attestation: I personally reviewed and interpreted this imaging study as follows: Radiologist's impression: EXAMINATION: XR CHEST CLINICAL INFORMATION: Shortness of breath COMPARISON: Chest x-ray on 06/29/2021 TECHNIQUE: 2 views of the chest were obtained. FINDINGS: No significant abnormality is noted involving the heart, lungs, mediastinum, bony thorax or soft tissues. XR/XR chest 2V IMPRESSION: Unremarkable examination. CT scan - chest: Attestation: I personally reviewed and interpreted this imaging study as follows: Radiologist's impression: FINDINGS: LUNGS: Central airways are patent. No significant bronchial wall thickening is seen. No bronchiectasis is noted. There are some scattered sub-4 mm densities seen. Calcified granulomas present. There are some areas of atelectasis or scarring seen in the lower lobes bilaterally.? MEDIASTINUM: Visualized thyroid gland appears unremarkable. Heart upper limits of normal in size. No pericardial effusion. No hilar or mediastinal lymphadenopathy appreciated. No thoracic aortic aneurysm. PLEURA: There is no pleural effusion. No pleural mass or thickening.? AXILLA: No lymphadenopathy.? UPPER ABDOMEN: Unremarkable.? OSSEOUS STRUCTURES: There are multiple old healed left rib fractures. There is a 9 mm sclerotic lesion seen about the anterior superior aspect of the T11 vertebral body without definite bony destruction but which could represent a sclerotic metastases and clinical correlation with possible breast malignancy is suggested Degenerative changes of both shoulders evident. There is multilevel degenerative disc disease seen.? CT/CT chest wo con IMPRESSION: No significant acute parenchymal disease within the lungs. ? Single sclerotic lesion within the T11 vertebral body as described.? ? Old granulomatous disease. ? According to the UPDATED 2017 Fleischner Society recommendations, the advised follow-up imaging for solid nodules < 6 mm is: ?? LOW RISK PATIENT: No routine follow-up. ?? HIGH RISK PATIENT: Optional CT at 12 months. ECG Data Attestation: I personally reviewed and interpreted this ECG as follows: ECG interpretation date: 07/07/21 ECG interpretation time: 11:25 Interpretation: Normal sinus rhythm with a rate 89, normal RI, normal QRS, QT Discharge Plan Discharge Clinical Impression: COPD (chronic obstructive pulmonary disease), COPD exacerbation Patient Disposition: Admitted As Inpatient
[2021-07-07 11:13] VITALS: BP 154/55; PULSE 88; PULSE 89; RESP 18; TEMP 36.8; O2SAT 98; BMI 53.8
[2021-07-07 11:55] LABS: MANUAL DIFF FLAG NO
[2021-07-07 11:56] LABS: Basophils Percent Auto 0.1 % (0-2); Eosinophils Absolute Auto 0.4 X10*3/uL (0.0-0.4); Eosinophils Percent Auto 2.1 % (0-4); Hemoglobin 10.8 g/dl (12.0-16.0); Imm Gran Abs Auto 0.31 X10*3/uL (0.00-0.03); Imm Gran Pct Auto 1.8 % (0.0-0.4); Lymphocytes Absolute Auto 2.1 X10*3/uL (1.2-4.9); Lymphocytes Percent Auto 12.6 % (20-40); Mean Corpuscular HGB Conc 31.8 g/dl (31.0-35.0); Mean Corpuscular Hemoglobin 28.5 pg (27.0-33.0); Mean Corpuscular Volume 89.7 fL (80.0-98.0); Mean Platelet Volume 11.9 fL (9.4-12.3); Monocytes Absolute Auto 0.6 X10*3/uL (0.1-1.2); Monocytes Percent Auto 3.3 % (2-11); Neutrophils Absolute Auto 13.6 x10*3/uL (2.0-8.3); Neutrophils Percent Auto 80.1 % (45-73); Platelet Count 263 X10*3/uL (160-400); Red Blood Count 3.79 X10*6/uL (4.20-5.50); Red Cell Distribution Width 13.1 % (11.0-16.0)
[2021-07-07] MEDS: Magnesium Sulfate/H2O 2 GM/50 ML PIGGYBACK IV (11:59)
[2021-07-07] MEDS: methylPREDNISolone Sod Succ 125 MG/2 ML VIAL IVPUSH (11:59)
[2021-07-07] MEDS: Morphine Sulfate 4 MG/ML CARTRIDGE IVPUSH (11:59)
[2021-07-07 12:08] LABS: Lactic Acid 1.9 mmol/L (0.5-2.0)
[2021-07-07 12:09] LABS: Prothrombin Time 10.8 SEC (9.9-13.0)
[2021-07-07 12:16] LABS: Alanine Aminotransferase 23 U/L (0-31); Albumin Level 3.2 g/dL (3.5-5.0); Alkaline Phosphatase 40 U/L (39-117); Anion Gap 15 (12-20); Aspartate Amino Transferase 19 U/L (5-31); Bilirubin Direct < 0.2 mg/dL (0.0-0.5); Bilirubin Total 0.2 mg/dL (0.0-1.0); Blood Urea Nitrogen 27 mg/dL (9-16); Calcium 8.8 mg/dL (8.4-10.2); Carbon Dioxide 26 mmol/L (22-29); Chloride 102 mmol/L (96-108); Creatinine Clr Calc Pharmacy 37.1; Estimated Glomerular Filt Rate 34; Glucose Random 332 mg/dL (60-115); Magnesium 1.9 mg/dL (1.6-2.6); Potassium 4.8 mmol/L (3.3-5.1); Sodium 138 mmol/L (135-145)
[2021-07-07 12:18] LABS: B Type Natriuretic Peptide < 10 pg/mL (<100); Troponin-I High Sensitivity 4.6 ng/L (<3.5-17.0)
[2021-07-07 12:23] LABS: Appearance Urine HAZY; Color Urine YELLOW; Glucose Urine UA 500 MG/DL (NEG); Leukocyte Esterase Urine NEG (NEG); Nitrite Urine NEG (NEG); PH 5.5 (5.0-8.0); Specific Gravity - Urine >= 1.030 (1.005-1.025); UACC Culture Trigger NO; Urine Blood 2+ (NEG); Urine Ketones NEG (NEG); Urine Protein TRACE MG/DL (NEG-TRACE)
--- NOTE | 2021-07-07 12:30 | PHA.MEDREC ---
Pharmacy Consult ? Medication Reconciliation Pharmacy has completed the medication reconciliation. Spoke with patient in ED, meds have not changed since previous discharge on 07/04/21. Took all AM medications
[2021-07-07 12:34] LABS: Bacteria Urine 1+ /LPF; Squamous Epithelial Cell Urine 2+ /LPF
[2021-07-07 12:35] LABS: Influenza A PCR NEGATIVE (Negative); Influenza B PCR NEGATIVE (Negative); Resp Syncy Virus RNA Qual PCR NEGATIVE (Negative); SARS COV2 PCR INHOUSE NEGATIVE (Negative)
[2021-07-07] MEDS: Albuterol/Iprat 2.5/0.5MG 3 ML AMPUL.NEB INHALE (12:35)
[2021-07-07] MEDS: Albuterol Sulfate (0.083%) 2.5 MG/3 ML VIAL.NEB 10 MG INHALE (13:49)
[2021-07-07 13:52] VITALS: PULSE 78; RESP 16; O2SAT 97
[2021-07-07] MEDS: Morphine Sulfate 2 MG/ML CARTRIDGE IVPUSH (14:50)
[2021-07-07] MEDS: guaiFEN/Codeine SF 200/20/10ML 10 ML LIQUID PO (14:50)
[2021-07-07 14:57] VITALS: BP 125/50; PULSE 87; RESP 18; TEMP 36.7; O2SAT 94
--- NOTE | 2021-07-07 17:32 | P.HPHOSP_ITS ---
History of Present Illness Date of Service: 07/07/21 Chief Complaint: Shortness of breath 71-year-old woman presented to the complaints of worsening shortness of breath. She was recently discharged from [facility] on 07/04/2021 and at that time treated for COPD exacerbation. At that time was recommended that she go to short-term rehab however she declined and preferred to have physical therapy at home. She is returning today with continued cough, shortness breath productive cough and low back pain. In the ER she was noted to have an elevated white blood cell count of 17.0, COVID-19 negative. She is not noted to have any hypoxia. chest CT did not show any clear consolidation. In the ER she was given a dose of albuterol, Solu- Medrol, magnesium, Robitussin, morphine. She will be admitted for further management and treatment of acute on chronic COPD exacerbation. Review of Systems Verdana 4l Review of Systems: Verdana 4d Verdana 4d Denies any recent fever chills or decrease in appetite respiratory See HPI cardiovascular See HPI gastrointestinal denies any dysphagia abdominal pain nausea vomiting or diarrhea genitourinary denies any dysuria frequency or hematuriahematuria musculoskeletal denies any joint pain or swelling neuropsych denies any weakness or seizures all other systems reviewed are negative [facility] Medical History (Updated 07/07/21 @ 17:37 by Rebecca Calloway NP) Allergic rhinitis Arthritis Constipation due to opioid therapy COPD (chronic obstructive pulmonary disease) CPAP (continuous positive airway pressure) dependence Diabetes Elevated cholesterol GERD (gastroesophageal reflux disease) History of adrenal adenoma History of diverticulitis History of restless legs syndrome Hx SBO Hyperlipidemia Obesity (BMI 30-39.9) ALDO (obstructive sleep apnea) Osteoarthritis of left knee Osteochondroma of left femur Family History Father HTN (hypertension) Diabetes mellitus Mother HTN (hypertension) Liver cancer Surgical History H/O colonoscopy H/O excision of mass H/O exploratory laparotomy History of appendectomy History of arthroscopy of left knee History of cholecystectomy History of hysterectomy History of oophorectomy History of partial colectomy History of surgery Hx of cataract extraction Social History 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: Family 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 Other:: ex Housing: House Are you a primary rn complex care to a significant other at home: No Do you presently have visiting nurse or other home services: Yes Alcohol intake: never Patient Tobacco Use Status: Never used Tobacco Second Hand Smoke Exposure: Yes Use of substances other than those prescribed or required for medical reasons: No Advance Directives: Yes Advance Directives Information Provided: No Advance Directives on File: No Advance Directives Date on File: 07/08/21 Do you have thoughts of harming others: None Do you have a plan to hurt others: No Plan Recently lost weight without trying: No service: No Current occupational status: unemployed Meds Allergies Allergy/AdvReac Type Severity Reaction Status Date / Time adhesive tape Allergy Intermediate RASH Verified 06/26/21 10:38 [ADHESIVE TAPE] trimethobenzamide Allergy Mild NAUSEA Verified 06/26/21 10:38 [From TIGAN] environmental Allergy Intermediate Nasal Uncoded 06/26/21 10:38 congestion Active Medications: Current Medications Acetaminophen (Acetaminophen 325 Mg Tablet) 650 mg PO Q6H PRN PRN Reason: Pain, Mild (Pain Scale 1-3) Albuterol Sulfate (Albuterol Sulfate (0.083%) 2.5 Mg/3 Ml Vial.Neb) 2.5 mg INHALE RQ4H WHILE AWAKE RANGEL Amlodipine Besylate (Amlodipine Besylate 5 Mg Tablet) 5 mg PO DAILY RANGEL; Protocol Aspirin (Aspirin Enteric Coated 81 Mg Tablet.Dr) 81 mg PO DAILY RANGEL Atorvastatin Calcium (Atorvastatin Calcium 80 Mg Tablet) 80 mg PO BEDTIME RANGEL Bupropion HCl (Bupropion Hcl Xl 150 Mg Tab.Er.24h) 150 mg PO DAILY [facility] Fluticasone Propionate (Fluticasone Propionate Nasal 16 Gm [place]) 1 spray NOSTRIL-B DAILY [facility] Gabapentin (Gabapentin 300 Mg Capsule) 300 mg PO DAILY [facility] Gabapentin (Gabapentin 300 Mg Capsule) 900 mg PO BEDTIME RANGEL Heparin Sodium (Porcine) (Heparin Sodium,Porcine 5,000 Unit/Ml Vial) 5,000 unit SUBCUT Q12H RANGEL Hydroxyzine HCl (Hydroxyzine Hcl 25 Mg Tablet) 25 mg PO BID [facility] Methylprednisolone Sodium Succinate (Methylprednisolone Sod Succ 40 Mg/Ml Vial) 40 mg IVPUSH Q8H RANGEL Montelukast Sodium (Montelukast Sodium 10 Mg Tablet) 10 mg PO BEDTIME [facility] Non-Formulary Medication (Insulin Detemir U-100 [Levemir Flextouch U-100 Insuln]) 20 unit SUBCUT QAM [facility] Ondansetron HCl (Ondansetron Hcl 4 Mg/2 Ml Vial) 4 mg IVPUSH Q8H PRN PRN Reason: Nausea and Vomiting Pharmacy Consult (Consult Rx Perform Med Rec) 1 each MISCELLANE ONCE PRN PRN Reason: Consult order Ropinirole HCl (Ropinirole Hcl 1 Mg Tablet) 2 mg PO BID [facility] Sodium Chloride (0.9 % Sodium Chloride Flush 3 Ml Syringe) 3 ml IVFLUSH QSHIFT [facility] Trazodone HCl (Trazodone Hcl 50 Mg Tablet) 250 mg PO BEDTIME [facility] Home Medications Medication Instructions Recorded Confirmed Last Taken Type bupropion HCl 150 150 mg PO DAILY 04/25/20 07/07/21 07/07/21 History mg 24 hr tablet, extended release oxygen-air #1 04/25/20 06/29/21 07/07/21 History delivery systems trazodone 100 mg 250 mg PO 04/25/20 07/07/21 07/06/21 History tablet BEDTIME gabapentin 300 mg 900 mg PO 05/13/21 07/07/21 07/06/21 History capsule BEDTIME cap atorvastatin 80 80 mg PO BEDTIME 06/29/21 07/07/21 07/06/21 History mg tablet fluticasone 1 spray 06/29/21 07/07/21 07/07/21 History propionate 50 INTRANASAL DAILY mcg/actuation nasal spray,suspension gabapentin 300 mg 300 mg PO DAILY 06/29/21 07/07/21 07/07/21 History capsule hydroxyzine 1 cap PO BID 06/29/21 07/07/21 07/07/21 History pamoate 25 mg capsule metformin 500 mg 500 mg PO DAILY 06/29/21 07/07/21 07/07/21 History tablet ropinirole 1 mg 2 mg PO BID 06/29/21 07/07/21 07/07/21 History tablet Physical Exam Verdana 4l Vital Signs and Narrative: Verdana 4d Verdana 4d Vital Signs: Verdana 4d Verdana 4Bd Last Vital Signs Verdana 4d Postdoctoral Scientist New 4d Postdoctoral Scientist New 4d Temp 98.1 F 07/07/21 14:57 Postdoctoral Scientist New 4d Pulse 87 07/07/21 14:57 Manuel FreitasNejohanna 4d Resp 18 07/07/21 14:57 BP 125/50 L 07/07/21 14:57 Pulse Ox 94 07/07/21 14:57 Oxygen Flow Rate 2 07/07/21 11:13 BMI result Body Mass Index 53.8 Appearing in no acute distress head is normocephalic atraumatic eyes pupils are PERRLA sclera is anicteric mouth throat mucous membranes are intact and moist neck is supple no lymphadenopathy, no JVD noted lung sounds exp wheezing heart regular rate rhythm, clear S1, S2 positive bowel sounds, abdomen is soft, nontender neuro patient is alert x3, no focal deficits Results Labs CBC and Chem 7: 07/08/21 07:10 07/08/21 07:10 Labs: Laboratory Results - last 24 hr 07/07/21 07/07/21 07/07/21 11:46 11:47 11:47 MCV 89.7 MCH 28.5 MCHC 31.8 RDW 13.1 Plt Count 263 MPV 11.9 Immature Gran % (Auto) 1.8 H Neut % (Auto) 80.1 H Lymph % (Auto) 12.6 L [place] % (Auto) 3.3 Eos % (Auto) 2.1 Baso % (Auto) 0.1 Lymph # (Auto) 2.1 [place] # (Auto) 0.6 Eos # (Auto) 0.4 Baso # (Auto) 0.0 Abs Immat Gran (auto) 0.31 H Absolute Neuts (auto) 13.6 H Absolute Nucleated RBC 0.000 Nucleated RBC % (auto) 0.0 PT 10.8 INR 1.0 Anion Gap Estim Creat Clear Calc Estimated GFR Random Glucose Lactic Acid Calcium Magnesium Total Bilirubin Direct Bilirubin AST ALT Alkaline Phosphatase Troponin I High Sens B-Natriuretic Peptide Total Protein Albumin Urine Color Urine Appearance Urine pH Ur Specific [place] Urine Protein Urine Glucose (UA) Urine Ketones Urine Blood Urine Nitrite Ur Leukocyte Esterase Urine RBC Urine WBC Ur Squamous Epith Cells Urine Bacteria Urine Yeast Influenza Type A (PCR) NEGATIVE Influenza Type B (PCR) NEGATIVE RSV RNA Qual (PCR) NEGATIVE SARS-CoV-2 RNA (RT-PCR) NEGATIVE 07/07/21 07/07/21 07/07/21 11:47 11:47 11:47 MCV MCH MCHC RDW Plt Count MPV Immature Gran % (Auto) Neut % (Auto) Lymph % (Auto) [place] % (Auto) Eos % (Auto) Baso % (Auto) Lymph # (Auto) [place] # (Auto) Eos # (Auto) Baso # (Auto) Abs Immat Gran (auto) Absolute Neuts (auto) Absolute Nucleated RBC Nucleated RBC % (auto) PT INR Anion Gap 15 Estim Creat Clear Calc 37.1 Estimated GFR 34 Random Glucose 332 H Lactic Acid 1.9 Calcium 8.8 Magnesium 1.9 Total Bilirubin 0.2 Direct Bilirubin < 0.2 AST 19 ALT 23 Alkaline Phosphatase 40 Troponin I High Sens 4.6 B-Natriuretic Peptide < 10 Total Protein 6.0 L Albumin 3.2 L Urine Color Urine Appearance Urine pH Ur Specific [place] Urine Protein Urine Glucose (UA) Urine Ketones Urine Blood Urine Nitrite Ur Leukocyte Esterase Urine RBC Urine WBC Ur Squamous Epith Cells Urine Bacteria Urine Yeast Influenza Type A (PCR) Influenza Type B (PCR) RSV RNA Qual (PCR) SARS-CoV-2 RNA (RT-PCR) 07/07/21 12:16 MCV MCH MCHC RDW Plt Count MPV Immature Gran % (Auto) Neut % (Auto) Lymph % (Auto) [place] % (Auto) Eos % (Auto) Baso % (Auto) Lymph # (Auto) [place] # (Auto) Eos # (Auto) Baso # (Auto) Abs Immat Gran (auto) Absolute Neuts (auto) Absolute Nucleated RBC Nucleated RBC % (auto) PT INR Anion Gap Estim Creat Clear Calc Estimated GFR Random Glucose Lactic Acid Calcium Magnesium Total Bilirubin Direct Bilirubin AST ALT Alkaline Phosphatase Troponin I High Sens B-Natriuretic Peptide Total Protein Albumin Urine Color YELLOW Urine Appearance HAZY Urine pH 5.5 Ur Specific [place] >= 1.030 H Urine Protein TRACE Urine Glucose (UA) 500 H Urine Ketones NEG Urine Blood 2+ H Urine Nitrite NEG Ur Leukocyte Esterase NEG Urine RBC 5-9 H Urine WBC 1-4 Ur Squamous Epith Cells 2+ Urine Bacteria 1+ Urine Yeast 2+ Influenza Type A (PCR) Influenza Type B (PCR) RSV RNA Qual (PCR) SARS-CoV-2 RNA (RT-PCR) Imaging Radiologist's Impressions: Impressions Chest X-Ray 07/07/21 12:28 IMPRESSION: Unremarkable examination. Chest CT 07/07/21 14:51 IMPRESSION: No significant acute parenchymal disease within the lungs. Single sclerotic lesion within the T11 vertebral body as described. Old granulomatous disease. According to the UPDATED 2017 Fleischner Society recommendations, the advised follow-up imaging for solid nodules < 6 mm is: LOW RISK PATIENT: No routine follow-up. HIGH RISK PATIENT: Optional CT at 12 months. Assessment and Plan (1) Low back pain: Status: Acute (2) COPD exacerbation: Status: Acute (3) Obesity due to excess calories: Status: Acute 71 year old women admitted with acute on chronic COPD exacerbation Acute on chronic respiratory failure secondary to COPD exacerbation with no hypoxia Scheduled duonebs Solumedrol 40mg Q8h Supplemental oxygen as needed Single sclerotic lesion within the T11 vertebral body New finding will order bone scan CKD3 Avoid nephrotoxic agents Diabetes will convert home dose of Levimir to Lantus hold metformin SSI, POCs, ADA diet HLD continue HLD mood continue bupropion, hydroxizine RLS continue ropinerole, gabapentin Morbid obesity. BMI 53.9 Discussed the importance of weight management as this may contribute to worsening of other comorbidities. dvt ppx - heparin Attending Dr. Mendoza code status - Full code Quality Stroke Does the patient have a stroke diagnosis?: No VTE Prior VTE?: No VTE Risk Level:: Medical - moderate - high VTE Device Contraindication: Treatment Not Indicated VTE Drug Contraindication: N/A - Med Ordered
[2021-07-07] MEDS: Heparin Sodium,Porcine 5,000 UNIT/ML VIAL 5000 UNIT SUBCUT (18:04)
[2021-07-07 19:20] VITALS: BP 139/68; PULSE 88; RESP 16; TEMP 36.5; O2SAT 97
[2021-07-07] MEDS: Albuterol Sulfate (0.083%) 2.5 MG/3 ML VIAL.NEB INHALE (20:54)
[2021-07-07 20:55] VITALS: PULSE 85; RESP 20; O2SAT 98
[2021-07-07] MEDS: traZODone HCL 100 MG TABLET 250 MG PO (22:53)
[2021-07-07] MEDS: hydrOXYzine HCL 25 MG TABLET PO (22:53)
[2021-07-07] MEDS: Gabapentin 300 MG CAPSULE 900 MG PO (22:54)
[2021-07-07] MEDS: Montelukast Sodium 10 MG TABLET PO (22:55)
[2021-07-07] MEDS: methylPREDNISolone Sod Succ 40 MG/ML VIAL IVPUSH (22:55)
[2021-07-07 23:00] LABS: Glucose, Whole Blood 305 mg/dL (60-115)
[2021-07-07] MEDS: Insulin Lispro 100 UNIT/ML 3 ML VIAL SUBCUT (23:19)
[2021-07-07] MEDS: Atorvastatin Calcium 80 MG TABLET PO (23:20)
[2021-07-07] MEDS: rOPINIRole HCL 2 MG TABLET PO (23:20)
[2021-07-07 23:22] VITALS: BP 131/52; PULSE 90; RESP 17
[2021-07-07] MEDS: rOPINIRole HCL 1 MG TABLET 2 MG PO (23:31)
[2021-07-08] VITALS (12 sets, daily range): BP systolic 135–153; BP diastolic 60–70; PULSE 77–91; RESP 14–24; TEMP 36.2–37; O2SAT 94–100
[2021-07-08] MEDS: methylPREDNISolone Sod Succ 40 MG/ML VIAL IVPUSH ×3 (05:34→21:03)
[2021-07-08] MEDS: Heparin Sodium,Porcine 5,000 UNIT/ML VIAL 5000 UNIT SUBCUT ×2 (05:34→17:11)
[2021-07-08] MEDS: 0.9 % Sodium Chloride Flush 3 ML SYRINGE IVFLUSH ×4 (05:37→21:07)
[2021-07-08 07:20] LABS: MANUAL DIFF FLAG NO
[2021-07-08 07:28] LABS: Basophils Percent Auto 0.1 % (0-2); Hemoglobin 11.1 g/dl (12.0-16.0); Imm Gran Abs Auto 0.32 X10*3/uL (0.00-0.03); Imm Gran Pct Auto 1.6 % (0.0-0.4); Lymphocytes Absolute Auto 1.9 X10*3/uL (1.2-4.9); Lymphocytes Percent Auto 9.4 % (20-40); Mean Corpuscular HGB Conc 31.7 g/dl (31.0-35.0); Mean Corpuscular Hemoglobin 28.4 pg (27.0-33.0); Mean Corpuscular Volume 89.5 fL (80.0-98.0); Mean Platelet Volume 11.8 fL (9.4-12.3); Monocytes Absolute Auto 0.4 X10*3/uL (0.1-1.2); Monocytes Percent Auto 2.1 % (2-11); Neutrophils Absolute Auto 17.4 x10*3/uL (2.0-8.3); Neutrophils Percent Auto 86.8 % (45-73); Platelet Count 255 X10*3/uL (160-400); Red Blood Count 3.91 X10*6/uL (4.20-5.50); Red Cell Distribution Width 13.1 % (11.0-16.0); White Blood Count 20.1 X10*3/uL (4.8-10.8)
[2021-07-08] MEDS: Insulin Glargine,Hum.rec.anlog 100 UNIT/ML 10 ML VIAL 14 UNIT SUBCUT (07:30)
[2021-07-08] MEDS: Insulin Lispro 100 UNIT/ML 3 ML VIAL SUBCUT ×4 (07:30→21:06)
[2021-07-08] MEDS: amLODIPine Besylate 5 MG TABLET PO (07:31)
[2021-07-08] MEDS: buPROPion HCl XL 150 MG TAB.ER.24H PO (07:31)
[2021-07-08] MEDS: Gabapentin 300 MG CAPSULE PO (07:31)
[2021-07-08] MEDS: Aspirin Enteric Coated 81 MG TABLET.DR PO (07:31)
[2021-07-08] MEDS: hydrOXYzine HCL 25 MG TABLET PO ×2 (07:32→21:03)
[2021-07-08] MEDS: rOPINIRole HCL 2 MG TABLET PO ×2 (07:34→21:04)
[2021-07-08 07:48] LABS: Anion Gap 13 (12-20); Blood Urea Nitrogen 31 mg/dL (9-16); Carbon Dioxide 27 mmol/L (22-29); Chloride 103 mmol/L (96-108); Creatinine Clr Calc Pharmacy 43.8; Estimated Glomerular Filt Rate 41; Glucose Random 265 mg/dL (60-115); Potassium 4.9 mmol/L (3.3-5.1); Sodium 138 mmol/L (135-145)
[2021-07-08 09:27] LABS: Glucose, Whole Blood 220 mg/dL (60-115)
[2021-07-08] MEDS: Acetaminophen 325 MG TABLET 650 MG PO (09:36)
--- NOTE | 2021-07-08 11:18 | P.PNIM_ITS ---
Subjective Subjective Date of Service: 07/08/21 <Rebecca Calloway NP - Last Filed: 07/08/21 15:02> 07/19/21 <Nicolas Pavon DO - Last Filed: 07/19/21 18:07> Review of Systems Follow-up COPD exacerbation, back pain Still having 10/10 back pain, no shortness of breath All other systems are reviewed and are negative <Rebecca Calloway NP - Last Filed: 07/08/21 15:02> Physical Exam Vital Signs: Vital Signs: Last Vital Signs Temp 97.8 F 07/08/21 10:23 Pulse 83 07/08/21 10:23 Resp 24 H 07/08/21 10:23 BP 150/68 H 07/08/21 10:23 Pulse Ox 99 07/08/21 10:23 Oxygen Flow Rate 2 07/07/21 11:13 BMI result Body Mass Index 53.8 <Rebecca Calloway NP - Last Filed: 07/08/21 15:02> Appearing in no acute distress lung sounds are clear to auscultation heart regular rate rhythm, clear S1, S2 positive bowel sounds, abdomen is soft, nontender neuro patient is alert x3, no focal deficits <Rebecca Calloway NP - Last Filed: 07/08/21 15:02> Objective Data Active Medications Acetaminophen (Acetaminophen 325 Mg Tablet) 650 mg PO Q6H PRN PRN Reason: Pain, Mild (Pain Scale 1-3) Last Admin: 07/08/21 09:36 Dose: 650 mg Documented by: YUE Albuterol Sulfate (Albuterol Sulfate (0.083%) 2.5 Mg/3 Ml Vial.Neb) 2.5 mg INHALE RQ4H WHILE AWAKE [facility] Last Admin: 07/08/21 08:17 Dose: Not Given Documented by: NAEEM Non-Admin Reason: pt with PT eval Amlodipine Besylate (Amlodipine Besylate 5 Mg Tablet) 5 mg PO DAILY [facility]; Protocol Last Admin: 07/08/21 07:31 Dose: 5 mg Documented by: YUE Aspirin (Aspirin Enteric Coated 81 Mg Tablet.) 81 mg PO DAILY [facility] Last Admin: 07/08/21 07:31 Dose: 81 mg Documented by: YUE Atorvastatin Calcium (Atorvastatin Calcium 80 Mg Tablet) 80 mg PO BEDTIME [facility] Last Admin: 07/07/21 23:20 Dose: 80 mg Documented by: KNE Bupropion HCl (Bupropion Hcl Xl 150 Mg Tab.Er.24h) 150 mg PO DAILY [facility] Last Admin: 07/08/21 07:31 Dose: 150 mg Documented by: YUE Dextrose (Dextrose 50 % 25 Gm/50 Ml Vial) 25 gm IVPUSH Q15M PRN; Protocol PRN Reason: per Hypoglycemia Standing Ord. Fluticasone Propionate (Fluticasone Propionate Nasal 16 Gm Butler) 1 spray NOSTRIL-B DAILY [facility] Last Admin: 07/08/21 10:55 Dose: Not Given Documented by: GEN Non-Admin Reason: See Note Comments: NOT STOCKED ON UNIT Gabapentin (Gabapentin 300 Mg Capsule) 300 mg PO DAILY [facility] Last Admin: 07/08/21 07:31 Dose: 300 mg Documented by: YUE Gabapentin (Gabapentin 300 Mg Capsule) 900 mg PO BEDTIME [facility] Last Admin: 07/07/21 22:54 Dose: 900 mg Documented by: KEN Glucose (Glucose Gel 15 Gm Gel..Gram.) 15 gm PO Q15M PRN; Protocol PRN Reason: per Hypoglycemia Standing Ord. Heparin Sodium (Porcine) (Heparin Sodium,Porcine 5,000 Unit/Ml Vial) 5,000 unit SUBCUT Q12H [facility] Last Admin: 07/08/21 05:34 Dose: 5,000 unit Documented by: KEN Hydroxyzine HCl (Hydroxyzine Hcl 25 Mg Tablet) 25 mg PO BID [facility] Last Admin: 07/08/21 07:32 Dose: 25 mg Documented by: YUE Insulin Glargine (Insulin Glargine,Hum.Rec.Anlog 100 Unit/Ml 10 Ml Vial) 14 unit SUBCUT DAILY [facility] Last Admin: 07/08/21 07:30 Dose: 14 unit Documented by: YUE Insulin Human Lispro (Insulin Lispro 100 Unit/Ml 3 Ml Vial) 0 unit SUBCUT QIDACHS [facility]; Protocol Last Admin: 07/08/21 07:30 Dose: 4 unit Documented by: YUE Methylprednisolone Sodium Succinate (Methylprednisolone Sod Succ 40 Mg/Ml Vial) 40 mg IVPUSH Q8H [facility] Last Admin: 07/08/21 05:34 Dose: 40 mg Documented by: KEN Montelukast Sodium (Montelukast Sodium 10 Mg Tablet) 10 mg PO BEDTIME [facility] Last Admin: 07/07/21 22:55 Dose: 10 mg Documented by: KEN Morphine Sulfate (Morphine Sulfate 2 Mg/Ml Cartridge) 2 mg IVPUSH Q4H PRN; Protocol PRN Reason: Pain, Mild (Pain Scale 1-3) Ondansetron HCl (Ondansetron Hcl 4 Mg/2 Ml Vial) 4 mg IVPUSH Q8H PRN PRN Reason: Nausea and Vomiting Pharmacy Consult (Consult Rx Perform Med Rec) 1 each MISCELLANE ONCE PRN PRN Reason: Consult order Ropinirole HCl (Ropinirole Hcl 2 Mg Tablet) 2 mg PO BID [facility] Last Admin: 07/08/21 07:34 Dose: 2 mg Documented by: YUE Sodium Chloride (0.9 % Sodium Chloride Flush 3 Ml Syringe) 3 ml IVFLUSH QSHIFT [facility] Last Admin: 07/08/21 07:37 Dose: 3 ml Documented by: YUE Trazodone HCl (Trazodone Hcl 100 Mg Tablet) 250 mg PO BEDTIME [facility] Last Admin: 07/07/21 22:53 Dose: 250 mg Documented by: KEN <Rebecca Calloway NP - Last Filed: 07/08/21 15:02> Labs CBC & Chem 7: : 07/09/21 06:09 07/09/21 06:09 <Rebecca Calloway NP - Last Filed: 07/08/21 15:02> Labs: Laboratory Results - last 24 hr 07/07/21 07/07/21 07/07/21 11:46 11:47 11:47 MCV 89.7 MCH 28.5 MCHC 31.8 RDW 13.1 Plt Count 263 MPV 11.9 Immature Gran % (Auto) 1.8 H Neut % (Auto) 80.1 H Lymph % (Auto) 12.6 L [place] % (Auto) 3.3 Eos % (Auto) 2.1 Baso % (Auto) 0.1 Lymph # (Auto) 2.1 [place] # (Auto) 0.6 Eos # (Auto) 0.4 Baso # (Auto) 0.0 Abs Immat Gran (auto) 0.31 H Absolute Neuts (auto) 13.6 H Absolute Nucleated RBC 0.000 Nucleated RBC % (auto) 0.0 PT 10.8 INR 1.0 Anion Gap Estim Creat Clear Calc Estimated GFR POC Glucose Random Glucose Lactic Acid Calcium Magnesium Total Bilirubin Direct Bilirubin AST ALT Alkaline Phosphatase Troponin I High Sens B-Natriuretic Peptide Total Protein Albumin Urine Color Urine Appearance Urine pH Ur Specific [place] Urine Protein Urine Glucose (UA) Urine Ketones Urine Blood Urine Nitrite Ur Leukocyte Esterase Urine RBC Urine WBC Ur Squamous Epith Cells Urine Bacteria Urine Yeast Influenza Type A (PCR) NEGATIVE Influenza Type B (PCR) NEGATIVE RSV RNA Qual (PCR) NEGATIVE SARS-CoV-2 RNA (RT-PCR) NEGATIVE 07/07/21 07/07/21 07/07/21 11:47 11:47 11:47 MCV MCH MCHC RDW Plt Count MPV Immature Gran % (Auto) Neut % (Auto) Lymph % (Auto) [place] % (Auto) Eos % (Auto) Baso % (Auto) Lymph # (Auto) [place] # (Auto) Eos # (Auto) Baso # (Auto) Abs Immat Gran (auto) Absolute Neuts (auto) Absolute Nucleated RBC Nucleated RBC % (auto) PT INR Anion Gap 15 Estim Creat Clear Calc 37.1 Estimated GFR 34 POC Glucose Random Glucose 332 H Lactic Acid 1.9 Calcium 8.8 Magnesium 1.9 Total Bilirubin 0.2 Direct Bilirubin < 0.2 AST 19 ALT 23 Alkaline Phosphatase 40 Troponin I High Sens 4.6 B-Natriuretic Peptide < 10 Total Protein 6.0 L Albumin 3.2 L Urine Color Urine Appearance Urine pH Ur Specific [place] Urine Protein Urine Glucose (UA) Urine Ketones Urine Blood Urine Nitrite Ur Leukocyte Esterase Urine RBC Urine WBC Ur Squamous Epith Cells Urine Bacteria Urine Yeast Influenza Type A (PCR) Influenza Type B (PCR) RSV RNA Qual (PCR) SARS-CoV-2 RNA (RT-PCR) 07/07/21 07/07/21 07/08/21 12:16 22:56 07:10 MCV 89.5 MCH 28.4 MCHC 31.7 RDW 13.1 Plt Count 255 MPV 11.8 Immature Gran % (Auto) 1.6 H Neut % (Auto) 86.8 H Lymph % (Auto) 9.4 L [place] % (Auto) 2.1 Eos % (Auto) 0.0 Baso % (Auto) 0.1 Lymph # (Auto) 1.9 [place] # (Auto) 0.4 Eos # (Auto) 0.0 Baso # (Auto) 0.0 Abs Immat Gran (auto) 0.32 H Absolute Neuts (auto) 17.4 H Absolute Nucleated RBC 0.000 Nucleated RBC % (auto) 0.0 PT INR Anion Gap Estim Creat Clear Calc Estimated GFR POC Glucose 305 H Random Glucose Lactic Acid Calcium Magnesium Total Bilirubin Direct Bilirubin AST ALT Alkaline Phosphatase Troponin I High Sens B-Natriuretic Peptide Total Protein Albumin Urine Color YELLOW Urine Appearance HAZY Urine pH 5.5 Ur Specific [place] >= 1.030 H Urine Protein TRACE Urine Glucose (UA) 500 H Urine Ketones NEG Urine Blood 2+ H Urine Nitrite NEG Ur Leukocyte Esterase NEG Urine RBC 5-9 H Urine WBC 1-4 Ur Squamous Epith Cells 2+ Urine Bacteria 1+ Urine Yeast 2+ Influenza Type A (PCR) Influenza Type B (PCR) RSV RNA Qual (PCR) SARS-CoV-2 RNA (RT-PCR) 07/08/21 07/08/21 07:10 07:20 MCV MCH MCHC RDW Plt Count MPV Immature Gran % (Auto) Neut % (Auto) Lymph % (Auto) [place] % (Auto) Eos % (Auto) Baso % (Auto) Lymph # (Auto) [place] # (Auto) Eos # (Auto) Baso # (Auto) Abs Immat Gran (auto) Absolute Neuts (auto) Absolute Nucleated RBC Nucleated RBC % (auto) PT INR Anion Gap 13 Estim Creat Clear Calc 43.8 Estimated GFR 41 POC Glucose 220 H Random Glucose 265 H Lactic Acid Calcium 9.0 Magnesium Total Bilirubin Direct Bilirubin AST ALT Alkaline Phosphatase Troponin I High Sens B-Natriuretic Peptide Total Protein Albumin Urine Color Urine Appearance Urine pH Ur Specific [place] Urine Protein Urine Glucose (UA) Urine Ketones Urine Blood Urine Nitrite Ur Leukocyte Esterase Urine RBC Urine WBC Ur Squamous Epith Cells Urine Bacteria Urine Yeast Influenza Type A (PCR) Influenza Type B (PCR) RSV RNA Qual (PCR) SARS-CoV-2 RNA (RT-PCR) <Rebecca Calloway NP - Last Filed: 07/08/21 15:02> Assessment and Plan (1) COPD exacerbation: Status: Resolved <Rebecca Calloway NP - Last Filed: 07/08/21 15:02> (2) Low back pain: Status: Acute <Rebecca Calloway NP - Last Filed: 07/08/21 15:02> Assessment and Plan: 71 year old women admitted with acute on chronic COPD exacerbation Acute COPD exacerbation with no hypoxia Scheduled duonebs Solumedrol 40mg Q8h Supplemental oxygen as needed Single sclerotic lesion within the T11 vertebral body 10/10 back pain New finding? will order bone scan Pain management CKD3 Avoid nephrotoxic agents Diabetes will convert home dose of Levimir to Lantus hold metformin SSI, POCs, ADA diet HLD continue HLD mood continue bupropion, hydroxizine RLS continue ropinerole, gabapentin dvt ppx - heparin Attending Dr. Pavon code status - Full code <Rebecca Calloway NP - Last Filed: 07/08/21 15:02> 71 year old women admitted with acute on chronic COPD exacerbation Acute COPD exacerbation with no hypoxia Scheduled duonebs Solumedrol 40mg Q8h Supplemental oxygen as needed Single sclerotic lesion within the T11 vertebral body 10/10 back pain New finding? will order bone scan Pain management CKD3 Avoid nephrotoxic agents Diabetes will convert home dose of Levimir to Lantus hold metformin SSI, POCs, ADA diet HLD continue HLD mood continue bupropion, hydroxizine RLS continue ropinerole, gabapentin dvt ppx - heparin Attending Dr. Pavon code status - Full code I personally examined and reviewed the chart. I agree with history physical assessment and plan as outlined by Ms. Calloway <Nicolas Pavon, DO - Last Filed: 07/19/21 18:07> Quality Stroke Does the patient have a stroke diagnosis?: No <Rebecca Calloway NP - Last Filed: 07/08/21 15:02> VTE Prior VTE?: No <Rebecca Calloway NP - Last Filed: 07/08/21 15:02> VTE Risk Level:: Medical - moderate - high <Rebecca Calloway NP - Last Filed: 07/08/21 15:02> VTE Device Contraindication: Treatment Not Indicated <Rebecca Calloway NP - Last Filed: 07/08/21 15:0 2> VTE Drug Contraindication: N/A - Med Ordered <Rebecca Calloway NP - Last Filed: 07/08/21 15:02>
[2021-07-08 11:39] LABS: Glucose, Whole Blood 348 mg/dL (60-115)
[2021-07-08] MEDS: Morphine Sulfate 2 MG/ML CARTRIDGE IVPUSH ×2 (11:45→21:12)
[2021-07-08] MEDS: Albuterol Sulfate (0.083%) 2.5 MG/3 ML VIAL.NEB INHALE ×3 (11:56→20:53)
--- NOTE | 2021-07-08 12:29 | PC.NURSE ---
REPORT TO MS RN GIVEN. [facility] CALLED AND NOTIFIED OF PTS TRANSFER TO FLOOR AND PLAN DISCUSSED WITH [facility] ABOUT VOIDING PRIOR TO SCAN. PRN MORPHINE ORDERED AND ADMINISTERED FOR BONE PAIN WITH POSITIVE EFFECT. BASELINE PAIN PER PT 5/10 FOR CHRONIC PAIN.
[2021-07-08 16:41] LABS: Glucose, Whole Blood 273 mg/dL (60-115)
[2021-07-08 20:10] LABS: Glucose, Whole Blood 368 mg/dL (60-115)
[2021-07-08] MEDS: traZODone HCL 100 MG TABLET 250 MG PO (21:03)
[2021-07-08] MEDS: Montelukast Sodium 10 MG TABLET PO (21:04)
[2021-07-08] MEDS: Atorvastatin Calcium 80 MG TABLET PO (21:04)
[2021-07-08] MEDS: Gabapentin 300 MG CAPSULE 900 MG PO (21:05)
[2021-07-09] MEDS: guaiFENesin DM 100/10/5 ML 5 ML SYRUP PO (01:48)
[2021-07-09] MEDS: methylPREDNISolone Sod Succ 40 MG/ML VIAL IVPUSH ×2 (03:35→12:11)
[2021-07-09] MEDS: Morphine Sulfate 2 MG/ML CARTRIDGE IVPUSH ×2 (03:35→10:12)
[2021-07-09 04:00] VITALS: BP 132/60; PULSE 79; RESP 17; TEMP 36.1; O2SAT 94
[2021-07-09] MEDS: Heparin Sodium,Porcine 5,000 UNIT/ML VIAL 5000 UNIT SUBCUT (05:18)
--- NOTE | 2021-07-09 05:41 | PC.NURSE ---
Pt still with SOB on exertion and back pain, can tolerate walking to the BR independently, tolerating O2 at 2L/min via NC, prn Morphine given with some effect, c/o persistent and congested coughing, notified, Guaifenissin po ordered, gave to pt, slept at intervals.
[2021-07-09 06:24] LABS: Hematocrit 32.3 % (37.0-47.0); Hemoglobin 10.5 g/dl (12.0-16.0); Mean Corpuscular HGB Conc 32.5 g/dl (31.0-35.0); Mean Corpuscular Hemoglobin 29.2 pg (27.0-33.0); Mean Corpuscular Volume 89.7 fL (80.0-98.0); Mean Platelet Volume 12.1 fL (9.4-12.3); Platelet Count 253 X10*3/uL (160-400); Red Cell Distribution Width 13.2 % (11.0-16.0); White Blood Count 19.3 X10*3/uL (4.8-10.8)
[2021-07-09] MEDS: Albuterol Sulfate (0.083%) 2.5 MG/3 ML VIAL.NEB INHALE (07:46)
[2021-07-09 07:48] VITALS: PULSE 88; RESP 16; O2SAT 95
[2021-07-09 07:53] LABS: Glucose, Whole Blood 332 mg/dL (60-115)
[2021-07-09 08:00] VITALS: BP 146/65; PULSE 79; RESP 17; TEMP 36.1; O2SAT 97
[2021-07-09 08:06] LABS: Anion Gap 12 (12-20); Blood Urea Nitrogen 45 mg/dL (9-16); Calcium 8.9 mg/dL (8.4-10.2); Carbon Dioxide 26 mmol/L (22-29); Chloride 101 mmol/L (96-108); Creatinine Clr Calc Pharmacy 35.9; Estimated Glomerular Filt Rate 33; Glucose Random 382 mg/dL (60-115); Potassium 5.2 mmol/L (3.3-5.1); Sodium 134 mmol/L (135-145)
[2021-07-09] MEDS: Insulin Lispro 100 UNIT/ML 3 ML VIAL SUBCUT ×2 (08:25→12:10)
[2021-07-09] MEDS: Aspirin Enteric Coated 81 MG TABLET.DR PO (08:26)
[2021-07-09] MEDS: amLODIPine Besylate 5 MG TABLET PO (08:26)
[2021-07-09] MEDS: buPROPion HCl XL 150 MG TAB.ER.24H PO (08:26)
[2021-07-09] MEDS: hydrOXYzine HCL 25 MG TABLET PO (08:26)
[2021-07-09] MEDS: 0.9 % Sodium Chloride Flush 3 ML SYRINGE IVFLUSH (08:26)
[2021-07-09] MEDS: Gabapentin 300 MG CAPSULE PO (08:26)
[2021-07-09] MEDS: rOPINIRole HCL 2 MG TABLET PO (08:26)
[2021-07-09] MEDS: Insulin Glargine,Hum.rec.anlog 100 UNIT/ML 10 ML VIAL 14 UNIT SUBCUT (08:28)
[2021-07-09 09:26] VITALS: BP 146/65; PULSE 79; O2SAT 97
--- NOTE | 2021-07-09 10:33 | MHC.CM.PN ---
CM MET WITH PT WHO REPORTS SHE WAS RECENTLY DISCHARGED AND FELT SHE COULD MANAGE AT HOME SHE REPORTS SHE HAS HER EX- LIVING WITH HER AND THE PLAN WAS FOR HIM TO HELP HER HOWEVER HE WILL NOT DO SO. SHE REPORTS SHE WAS DISCHARGED WITH [facility] BUT DID NOT KNOW THE AGENCY PT HAS A HCP ON FILE AND HER [facility] DELIVERED PT NOW AGREEABLE TO STR SHE WOULD LIKE DINORAH DUNNE VACCINATION CARD PROVIDED, COPY PLACED IN CHART
[2021-07-09 11:30] LABS: Glucose, Whole Blood 302 mg/dL (60-115)
[2021-07-09 11:34] VITALS: BP 140/62; PULSE 85; RESP 20; TEMP 36.1; O2SAT 96
--- NOTE | 2021-07-09 12:13 | PM.DS ---
DS: Providers Provider Date of Service: 07/09/21 Date of admission: 07/07/21 17:28 Primary care physician: Shelbi Perez MD Attending physician on discharge: Kingsley Tang Discharging clinician: Rebecca Calloway DS: Diagnosis Discharge Diagnosis (1) Low back pain: Status: Acute (2) COPD exacerbation: Status: Acute (3) Obesity due to excess calories: Status: Acute DS: Summary Hospital Course Hospital Course: Hp as per admitting provider 71-year-old woman presented to the complaints of worsening shortness of breath.? She was recently discharged from [facility] on 07/04/2021 and at that time treated for COPD exacerbation.? At that time was recommended that she go to short-term rehab however she declined and preferred to have physical therapy at home.? She is returning today with continued cough, shortness breath productive cough and low back pain. In the ER she was noted to have an elevated white blood cell count of 17.0, COVID-19 negative.? She is not noted to have any hypoxia. chest CT did not show any clear consolidation.? In the ER she was given a dose of albuterol, Solu-Medrol, magnesium, Robitussin, morphine.? She will be admitted for further management and treatment of acute on chronic COPD exacerbation. Acute COPD exacerbation with no hypoxia Scheduled duonebs Solumedrol 40mg Q8h Supplemental oxygen as needed Steroids changed to prednisone taper continue albuterol treatments as prescribed. Single sclerotic lesion within the T11 vertebral body 10/10 back pain initially New finding? Bone scan negative for malignancy, arthritic changes noted Pain management as needed CKD Chronic avoid nephrotoxic agents Time Spent with Patient Time attestation: Total time spent providing and/or coordinating discharge services: Discharge coordination time: Greater than 30 minutes Quality: Stroke Does the patient have a stroke diagnosis?: No Physical Exam Vital Signs: Vital Signs: Last Vital Signs Temp 96.9 F 07/09/21 11:34 Pulse 85 07/09/21 11:34 Resp 20 07/09/21 11:34 BP 140/62 H 07/09/21 11:34 Pulse Ox 96 07/09/21 11:34 Oxygen Flow Rate 2 07/07/21 11:13 BMI result Body Mass Index 53.8 Appearing in no acute distress head is normocephalic atraumatic eyes pupils are PERRLA sclera is anicteric mouth throat mucous membranes are intact and moist neck is supple no lymphadenopathy, no JVD noted lung sounds mild chronic wheeze heart regular rate rhythm, clear S1, S2 positive bowel sounds, abdomen is soft, nontender, obese neuro patient is alert x3, no focal deficits DS: Data Data Completed and Pending Completed studies during hospitalization [Text1]: Procedures Replacement of Left Knee Joint with Synthetic Substitute, Uncemented, Open Approach (05/28/20) Labs on day of discharge: Laboratory Results - last 24 hr 07/08/21 07/08/21 07/09/21 15:51 19:33 06:09 WBC 19.3 H RBC 3.60 L Hgb 10.5 L Hct 32.3 L MCV 89.7 MCH 29.2 MCHC 32.5 RDW 13.2 Plt Count 253 MPV 12.1 Absolute Nucleated RBC 0.000 Nucleated RBC % (auto) 0.0 Sodium Potassium Chloride Carbon Dioxide Anion Gap BUN Creatinine Estim Creat Clear Calc Estimated GFR POC Glucose 273 H 368 H* Random Glucose Calcium 07/09/21 07/09/21 07/09/21 06:09 07:28 11:12 WBC RBC Hgb Hct MCV MCH MCHC RDW Plt Count MPV Absolute Nucleated RBC Nucleated RBC % (auto) Sodium 134 L Potassium 5.2 H Chloride 101 Carbon Dioxide 26 Anion Gap 12 BUN 45 H Creatinine 1.55 H Estim Creat Clear Calc 35.9 Estimated GFR 33 POC Glucose 332 H 302 H Random Glucose 382 H* Calcium 8.9 Preliminary micro results at discharge 07/07/21 11:46 Blood Culture - Preliminary Blood - Venous No growth after 24 hours. 07/07/21 11:47 Blood Culture - Preliminary Blood - Venous No growth after 24 hours. Discharge Plan Discharge Anticipated Discharge Date/Time: 07/09/21 12:06 Patient Disposition: [facility] Discharge Diagnosis: COPD exacerbation Low back pain Referrals: Shelbi Perez MD [Primary Care Provider] - 1 Week Discharge Medications: New prednisone 10 mg tablet See Taper mg PO DAILY Qty: 30 RF: 0 Continued Levemir FlexTouch U-100 Insuln 100 unit/mL (3 mL) insulin pen 20 unit subcut QAM 90 Days Qty: 18 RF: 1 montelukast 10 mg tablet 10 mg PO BEDTIME 90 Days Qty: 90 RF: 0 (DME) lancets 28 gauge misc See Rx Instructions ea topical TID Qty: 100 RF: 3 (DME) pen needle, diabetic 31 gauge x 3/16 needle See Rx Instructions ea subcut TID Qty: 100 RF: 1 (DME) Depend Underwear For Women S-M Misc See Rx Instructions .ROUTE .MEDSUPPLY Qty: 64 RF: 6 (DME) AeroEclipse II Nebulizer Misc See Rx Instructions .ROUTE .MEDSUPPLY Qty: 1 RF: 0 hydroxyzine pamoate 25 mg capsule 1 cap PO BID RF: 0 ropinirole 1 mg tablet 2 mg PO BID RF: 0 fluticasone propionate 50 mcg/actuation spray,suspension 1 spray intranasal DAILY RF: 0 gabapentin 300 mg capsule 300 mg PO DAILY RF: 0 metformin 500 mg tablet 500 mg PO DAILY RF: 0 atorvastatin 80 mg tablet 80 mg PO BEDTIME RF: 0 aspirin [Adult Aspirin Regimen] 81 mg tablet,delayed release (DR/EC) 81 mg PO DAILY 30 Days Qty: 30 RF: 0 amlodipine [Norvasc] 5 mg tablet 5 mg PO DAILY 30 Days Qty: 30 RF: 0 prednisone 20 mg tablet 40 mg PO DAILY 5 Days Qty: 10 RF: 0 gabapentin 300 mg capsule 900 mg PO BEDTIME RF: 0 trazodone 100 mg tablet 250 mg PO BEDTIME RF: 0 bupropion HCl 150 mg tablet extended release 24 hr 150 mg PO DAILY RF: 0 (DME) oxygen-air delivery systems Device See Rx Instructions .ROUTE .MEDSUPPLY Qty: 1 RF: 0 albuterol sulfate 0.63 mg/3 mL solution for nebulization 0.63 mg inhalation QID PRN (Reason: shortness of breath or wheezing) Qty: 75 RF: 0 albuterol sulfate [ProAir HFA] 90 mcg/actuation HFA aerosol inhaler 2 puff inhalation Q4-6H PRN (Reason: shortness of breath or wheezing) 30 Days Qty: 8.5 RF: 2 Discharge Orders: Discharge Order (Routine); Ordered 07/09/21 Ordered By: Rebecca Calloway Diet: advance to usual diet Activity on Discharge: As tolerated Stand Alone Forms: Patient Portal Discharge page Care Plan Goals: Resolution of back pain and respiratory symptoms Health Concerns: COPD exacerbation Low back pain Plan of Treatment: Follow-up with your primary care provider once discharged from short-term rehab Continue your prednisone taper Assessment: see discharge summary
--- NOTE | 2021-07-09 12:26 | MHC.CM.PN ---
Addendum entered by Erika Carcamo 07/09/21 14:05: PER [facility] STA[facility] PATIENT DID NOT MEET CRITERIA FOR BLS TRANSPORT SO THEY TOOK HER IN THE AMBULANCE AFTER WHEELCHAIR VAN TANIYA COMPLEETED EXPLAINED TO PATIENT SHE UNDERSTANDS THIS IS SELF PAY AND WAS ACCEPTING OF THIS , INFORMED THE FACILITY THAT THERE WAS A DELAY AND SHE WAS LEAVING [facility] NOW Original Note: NURSE TURF GROWER NOTE CASE DISCUSSED WITH HOSPITLIST INSULATION BLOWER PATIENT WILL BE DISCHARGED TODAY IF STR BED SECURED , REFERRRALS [facility]IATED TO [facility] (NO BED AVAILABILITY)( CLINIOClly accepted at [facility] discharge to [facility] with cont o2 transport via [facility] with o2 care [facility] to follow up with lázaro man all discharge paperwork completed and sent via [employer] to facility post anesthesia care unit nurse , staff nurse and patient awarw of disposition and time of transport
== END 2021-07-09 14:00 | disposition skilled nursing facility (03) | DRG 190 ==
LOC: HO.ED 16:20 → HO.EDOVER 18:00 → HO.S3 07-08 12:10
PROVIDERS: Nurse Practitioner Family; Admitting Provider Nurse Practitioner Acute Care; Emergency Provider Emergency Medicine; PCP Internal Medicine; Visit Provider Nurse Practitioner Acute Care
DX: J44.1 Chronic obstructive pulmonary disease with (acute) exacerbation (principal); J96.20 Acute and chronic respiratory failure, unspecified whether with hypoxia or hypercapnia; Z68.43 Body mass index [BMI] 50.0-59.9, adult; Z20.822 Contact with and (suspected) exposure to COVID-19; Z99.81 Dependence on supplemental oxygen; N18.30 Chronic kidney disease, stage 3 unspecified; E78.5 Hyperlipidemia, unspecified; E11.22 Type 2 diabetes mellitus with diabetic chronic kidney disease; M54.50 Low back pain, unspecified; G25.81 Restless legs syndrome; E66.01 Morbid (severe) obesity due to excess calories; K21.9 Gastro-esophageal reflux disease without esophagitis; Z79.4 Long term (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 insulin; Z79.51 Long term (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 inhaled steroids; Z79.84 Long term (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 oral hypoglycemic drugs; Z79.899 Other long term (current) drug therapy
CPT/HCPCS: 0241U; 36415; 71046; 71250; 78306; 80048; 80076; 81001; 82947; 83605; 83735; 83880; 84484; 85025; 85027; 85610; 87040; 93005; 94640; 94644; 97116; 97162; 99285; A9503; J2270; J2920; J2930; J3475

== ENCOUNTER 2021-07-15 00:16 | Outpatient (REF) | payer MEDICARE, MEDICAID, SELFPAY | END 2021-07-15 00:17 | disposition home or self-care (01) | LOC: HO.MMNH1L 00:16 | PROVIDERS: Visit Provider Family Medicine | DX: Z13.89 Encounter for screening for other disorder (principal) ==

== ENCOUNTER 2021-07-16 22:34 | Inpatient (IN) | payer MEDICARE, MEDICAID, SELFPAY ==
--- NOTE | ~2021-07-16 | XR_ITS ---
EXAMINATION: CHEST AND LUMBAR SPINE CLINICAL INFORMATION: Fall with back pain COMPARISON: CT chest as well as chest radiograph dated 07/07/2021 TECHNIQUE: Single view chest, 3 views lumbar spine FINDINGS: Heart size upper limits of normal for technique. Some mild bibasilar atelectasis is seen. No acute infiltrates, effusions or lung masses are seen. Mild degenerative changes present in the spine with predominantly endplate changes with sclerosis and osteophytes. Vertebral heights are well-maintained as are disc spaces with some mild narrowing at L5-S1. Surgical clips are seen in the mid pelvis. A rectal chain suture anastomosis appears to be present XR/XR lumbar spine 2-3V IMPRESSION: * No acute intrathoracic disease. * No evidence of a traumatic osseous injury involving the lumbar spine.
--- NOTE | ~2021-07-16 | XR_ITS ---
EXAMINATION: CHEST AND LUMBAR SPINE CLINICAL INFORMATION: Fall with back pain COMPARISON: CT chest as well as chest radiograph dated 07/07/2021 TECHNIQUE: Single view chest, 3 views lumbar spine FINDINGS: Heart size upper limits of normal for technique. Some mild bibasilar atelectasis is seen. No acute infiltrates, effusions or lung masses are seen. Mild degenerative changes present in the spine with predominantly endplate changes with sclerosis and osteophytes. Vertebral heights are well-maintained as are disc spaces with some mild narrowing at L5-S1. Surgical clips are seen in the mid pelvis. A rectal chain suture anastomosis appears to be present XR/XR chest 1V IMPRESSION: * No acute intrathoracic disease. * No evidence of a traumatic osseous injury involving the lumbar spine.
--- NOTE | ~2021-07-16 | CT_ITS ---
EXAMINATION: CT HEAD WITHOUT CONTRAST CLINICAL INFORMATION: Fall COMPARISON: None TECHNIQUE: Contiguous axial imaging was performed from the skull base to vertex without intravenous administration of contrast. This CT examination was performed using dose optimization techniques as appropriate, variously including the following: *Automated exposure control *Adjustment of mA and/or kV according to patient size (this includes techniques or standardized protocols for targeted exams where dose is matched to indication/reason for exam; i.e. extremities or head) *Use of iterative reconstruction technique DLP: 640 mGy-cm FINDINGS: There is no evidence of acute intracranial hemorrhage or territorial infarction. No abnormal mass effect or midline shift is seen. Pathak to white matter differentiation is well preserved. No extra-axial fluid collections are identified. The ventricles are normal in size. There is no abnormal attenuation within the brain parenchyma. The osseous structures and soft tissues are normal. Moderate mucosal thickening throughout the paranasal sinuses. Mastoid air cells are clear. CT/CT head/brain wo con IMPRESSION: No acute intracranial pathology.
[2021-07-16 22:39] VITALS: BP 110/58; PULSE 115; O2SAT 97
--- NOTE | 2021-07-16 22:49 | ECG_ITS ---
Test Reason : WEAKNESS Blood Pressure : / mmHG Vent. Rate : 117 BPM Atrial Rate : 117 BPM P-R Int : 146 ms QRS Dur : 082 ms QT Int : 338 ms P-R-T Axes : 051 033 023 degrees QTc Int : 471 ms Sinus tachycardia Nonspecific ST abnormality Abnormal ECG When compared with ECG of 07-JUL-2021 11:25, Nonspecific ST abnormality is now Present Referred By: Renee Aranda Electronically Signed By:RAMSEY ZARATE MD
--- NOTE | 2021-07-16 22:53 | ED.FALL ---
HPI - Fall General Chief Complaint: Fall Stated Complaint: fall Time Seen by Provider: 07/16/21 22:48 Source: patient and EMS Mode of arrival: EMS Limitations: no limitations History of Present Illness HPI Narrative: 71-year-old female came in from home by EMS for evaluation after she fell of the chair. Patient with history of COPD, restrictive lung disease, sleep apnea, patient uses 2 L of supplemental oxygen at home, patient has been complaining worsening of difficulty breathing, patient chronically with difficulty breathing due to advanced COPD, patient also complaining of nonproductive cough, no fever, no chills, patient received her 3 COVID vaccination, decline any sick contacts, no recent travel. Patient also came in for evaluation after she slipped of the recliner at home, landing on her back, patient do not recall if she hit her head, patient declined headache, no neck pain. Related Data Home Medications Medication Instructions Recorded Confirmed bupropion HCl 150 mg 24 hr tablet, 150 mg PO DAILY 04/25/20 07/07/21 extended release oxygen-air delivery systems #1 04/25/20 06/29/21 trazodone 100 mg tablet 250 mg PO BEDTIME 04/25/20 07/07/21 gabapentin 300 mg capsule 900 mg PO BEDTIME cap 05/13/21 07/07/21 atorvastatin 80 mg tablet 80 mg PO BEDTIME 06/29/21 07/07/21 fluticasone propionate 50 1 spray INTRANASAL DAILY 06/29/21 07/07/21 mcg/actuation nasal spray,suspension gabapentin 300 mg capsule 300 mg PO DAILY 06/29/21 07/07/21 hydroxyzine pamoate 25 mg capsule 1 cap PO BID 06/29/21 07/07/21 metformin 500 mg tablet 500 mg PO DAILY 06/29/21 07/07/21 ropinirole 1 mg tablet 2 mg PO BID 06/29/21 07/07/21 Previous Rx's Medication Instructions Recorded nebulizers (AeroEclipse II #1 ea 02/05/21 Nebulizer) albuterol sulfate 0.63 mg/3 mL 0.63 mg (3 mL) INHALATION QID PRN 02/21/21 solution for nebulization #75 ml albuterol sulfate 90 mcg/actuation 2 puff INHALATION Q4-6H PRN 30 05/13/21 aerosol inhaler (ProAir HFA) Days #8.5 g insulin detemir U-100 100 unit/mL 20 unit (0.2 mL) SUBCUT QAM 90 06/24/21 (3 mL) subcutaneous pen (Levemir Days #18 ml FlexTouch U-100 Insulin) lancets 28 gauge #100 ea 06/24/21 montelukast 10 mg tablet 10 mg PO BEDTIME 90 Days #90 tab 06/24/21 diaper,brief,adult,disposable #64 ea 06/26/21 (Depend Underwear For Women S-M) pen needle, diabetic 31 gauge x #100 ea 06/26/21 3/16 aspirin 81 mg tablet,delayed 81 mg PO DAILY 30 Days #30 tab 07/03/21 release (Adult Aspirin Regimen) amlodipine 5 mg tablet (Norvasc) 5 mg PO DAILY 30 Days #30 tab 07/04/21 prednisone 20 mg tablet 40 mg PO DAILY 5 Days #10 tab 07/04/21 prednisone 10 mg tablet See Taper PO DAILY #30 tab 07/09/21 Allergies Allergy/AdvReac Type Severity Reaction Status Date / Time adhesive tape [ADHESIVE TAPE] Allergy Intermediate RASH Verified 06/26/21 10:38 trimethobenzamide Allergy Mild NAUSEA Verified 06/26/21 10:38 [From TIGAN] environmental Allergy Intermediate Nasal Uncoded 06/26/21 10:38 congestion Review of Systems Review of Systems: All other systems are reviewed and are negative Constitutional: Reports as per HPI and Reports no additional constitutional complaints Eyes: Reports as per HPI and Reports no additional eye complaints Reports system reviewed and no additional complaints, except as documented Cardiovascular: Reports as per HPI and Reports no additional cardiovascular complaints Respiratory: Reports as per HPI and Reports no additional respiratory complaints Gastrointestinal: Reports as per HPI and Reports no additional gastrointestinal complaints Genitourinary: Reports no additional female genitourinary complaints Musculoskeletal: Reports no additional musculoskeletal complaints Skin/Breast: Reports system reviewed and no additional complaints, except as docu Psychiatric: Reports no additional psychiatric complaints Endocrine: Reports no additional endocrine complaints Hematologic/Lymphatic: Reports no additional hematologic/lymphatic complaints Allergic/Immunologic: Reports no additional allergic/immunologic complaints Reports system reviewed and no additional complaints, except as documented and Reports Abnormal speech present PMFSH Past Medical History Medical History Allergic rhinitis Arthritis Constipation due to opioid therapy COPD (chronic obstructive pulmonary disease) CPAP (continuous positive airway pressure) dependence Diabetes Diabetes Elevated cholesterol GERD (gastroesophageal reflux disease) History of adrenal adenoma History of diverticulitis History of restless legs syndrome Hx SBO Hyperlipidemia Obesity (BMI 30-39.9) Obesity due to excess calories ALDO (obstructive sleep apnea) Osteoarthritis of left knee Osteochondroma of left femur Surgical History H/O colonoscopy H/O excision of mass H/O exploratory laparotomy History of appendectomy History of arthroscopy of left knee History of cholecystectomy History of hysterectomy History of oophorectomy History of partial colectomy History of surgery Hx of cataract extraction Family History Family History Father HTN (hypertension) Diabetes mellitus Mother HTN (hypertension) Liver cancer Social History Social History 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: Family 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 Other:: ex Housing: House Are you a primary health care specialist to a significant other at home: No Do you presently have visiting nurse or other home services: Yes Alcohol intake: never Patient Tobacco Use Status: Never used Tobacco Second Hand Smoke Exposure: Yes Advance Directives Date on File: 07/08/21 service: No Current occupational status: unemployed Physical Exam Vital Signs: Vital Signs: Last Vital Signs Pulse 107 H 07/17/21 00:00 Resp 18 07/17/21 00:00 BP 119/54 L 07/17/21 00:00 Pulse Ox 99 07/17/21 00:00 Oxygen Flow Rate 2 07/16/21 23:00 BMI result Body Mass Index 40.6 Vital signs have been reviewed as appeared to be correct. Blood pressure normal. Heart rate normal. Respiration rate normal. Temperature normal. Oxygen saturation normal. Appearance: Alert. Oriented X3. No acute distress. Head: Normal external exam. Normocephalic. Atraumatic. No Hammer signs noted. No raccoon eyes noted Eyes: PERRLA. EOMI. Conjunctiva and sclera normal. Eyelids normal. ENT: TM's Normal. Pharynx normal. Uvula midline. Moist mucous membranes. No trismus noted. No drooling noted. No muffled voice noted. Neck: Normal inspection. Neck supple. FROM. No adenopathy. Thyroid Normal. No meningeal signs. No neck mass noted. CVS: Normal heart rate and rhythm. Heart sound normal. No murmurs noted. Pulses normal throughout. Respiratory: No respiratory distress. Painless inspiration. Breath sounds normal. Diffuse expiratory wheezing, prolonged expiration, decreased air entry bilaterally. Abdomen: Soft and nontender. Bowel sounds normal in all 4 quadrants. No distention noted. No organomegaly noted. No visible injury noted. Back: No CVA tenderness. Full range of motion noted. Skin: Skin warm and dry. Normal skin color. Normal skin turgor. No rashes/lesions/lacerations noted. Extremities: No lower extremity edema. Extremities exhibit normal range of motion. Extremities nontender. Neuro: Oriented X 3. Cranial nerve exam: II-XII are grossly intact No motor deficit. No sensory deficit. Reflexes normal. Course Course Course Narrative: Assessment and plan. 71-year-old female history of COPD came in with COPD exacerbation. 1. found to be tachycardic and tachypneic with leukocytosis that will fall the patient into sirs criteria patient received antibiotics, culture and lactic acid was checked. 2. COPD exacerbation is likely secondary to COVID infection. 3. Falling from recliner hitting her head and lower back with no internal injury on the CT of the abdomen or lumbar spine x-ray. 4. Patient is hyperglycemic known history of diabetes, well controlled with insulin p.r.n.. MDM - Fall Medical Records Attestation: I reviewed the patient's medical records. Lab Data Attestation: I reviewed the patient's lab results. Result diagrams: 07/16/21 23:59 07/16/21 23:59 Labs: Lab Results 07/16/21 07/16/21 07/16/21 Range/Units 22:58 23:59 23:59 WBC 13.2 H (4.8-10.8) X10*3/uL RBC 4.07 L (4.20-5.50) X10*6/uL Hgb 11.9 L (12.0-16.0) g/dl Hct 36.7 L (37.0-47.0) % MCV 90.2 (80.0-98.0) fL MCH 29.2 (27.0-33.0) pg MCHC 32.4 (31.0-35.0) g/dl RDW 13.3 (11.0-16.0) % Plt Count Not Reportable MPV Not Reportable Immature Gran % (Auto) 0.8 H (0.0-0.4) % Neut % (Auto) 79.1 H (45-73) % Lymph % (Auto) 7.6 L (20-40) % [place] % (Auto) 11.9 H (2-11) % Eos % (Auto) 0.5 (0-4) % Baso % (Auto) 0.1 (0-2) % Lymph # (Auto) 1.0 L (1.2-4.9) X10*3/uL [place] # (Auto) 1.6 H (0.1-1.2) X10*3/uL Eos # (Auto) 0.1 (0.0-0.4) X10*3/uL Baso # (Auto) 0.0 (0.0-0.2) X10*3/uL Abs Immat Gran (auto) 0.11 H (0.00-0.03) X10*3/uL Absolute Neuts (auto) 10.4 H (2.0-8.3) x10*3/uL Absolute Nucleated RBC 0.000 (0.0-0.012) X10*3/uL Nucleated RBC % (auto) 0.0 (0.0-0.2) /100WBC Smear Tech's Comments VERIFIED Sodium 135 (135-145) mmol/L Potassium 4.3 (3.3-5.1) mmol/L Chloride 98 (96-108) mmol/L Carbon Dioxide 24 (22-29) mmol/L Anion Gap 17 (12-20) BUN 21 H (9-16) mg/dL Creatinine 2.01 H (0.5-1.4) mg/dL Estim Creat Clear Calc 26.4 Estimated GFR 24 POC Glucose 359 H* (60-115) mg/dL Random Glucose 391 H* (60-115) mg/dL Lactic Acid (0.5-2.0) mmol/L Calcium 8.4 D (8.4-10.2) mg/dL Magnesium 1.7 (1.6-2.6) mg/dL Total Bilirubin 0.5 (0.0-1.0) mg/dL Direct Bilirubin 0.2 (0.0-0.5) mg/dL AST 19 D (5-31) U/L ALT 24 (0-31) U/L Alkaline Phosphatase 40 (39-117) U/L B-Natriuretic Peptide (<100) pg/mL Total Protein 5.9 L (6.5-8.0) g/dL Albumin 3.3 L (3.5-5.0) g/dL Lipase 42 (8-78) U/L Influenza Type A (PCR) (Negative) Influenza Type B (PCR) (Negative) RSV RNA Qual (PCR) (Negative) SARS-CoV-2 RNA (RT-PCR) (Negative) 07/16/21 07/16/21 07/17/21 Range/Units 23:59 23:59 00:07 WBC (4.8-10.8) X10*3/uL RBC (4.20-5.50) X10*6/uL Hgb (12.0-16.0) g/dl Hct (37.0-47.0) % MCV (80.0-98.0) fL MCH (27.0-33.0) pg MCHC (31.0-35.0) g/dl RDW (11.0-16.0) % Plt Count MPV Immature Gran % (Auto) (0.0-0.4) % Neut % (Auto) (45-73) % Lymph % (Auto) (20-40) % [place] % (Auto) (2-11) % Eos % (Auto) (0-4) % Baso % (Auto) (0-2) % Lymph # (Auto) (1.2-4.9) X10*3/uL [place] # (Auto) (0.1-1.2) X10*3/uL Eos # (Auto) (0.0-0.4) X10*3/uL Baso # (Auto) (0.0-0.2) X10*3/uL Abs Immat Gran (auto) (0.00-0.03) X10*3/uL Absolute Neuts (auto) (2.0-8.3) x10*3/uL Absolute Nucleated RBC (0.0-0.012) X10*3/uL Nucleated RBC % (auto) (0.0-0.2) /100WBC Smear Tech's Comments Sodium (135-145) mmol/L Potassium (3.3-5.1) mmol/L Chloride (96-108) mmol/L Carbon Dioxide (22-29) mmol/L Anion Gap (12-20) BUN (9-16) mg/dL Creatinine (0.5-1.4) mg/dL Estim Creat Clear Calc Estimated GFR POC Glucose (60-115) mg/dL Random Glucose (60-115) mg/dL Lactic Acid 1.5 (0.5-2.0) mmol/L Calcium (8.4-10.2) mg/dL Magnesium (1.6-2.6) mg/dL Total Bilirubin (0.0-1.0) mg/dL Direct Bilirubin (0.0-0.5) mg/dL AST (5-31) U/L ALT (0-31) U/L Alkaline Phosphatase (39-117) U/L B-Natriuretic Peptide 14 (<100) pg/mL Total Protein (6.5-8.0) g/dL Albumin (3.5-5.0) g/dL Lipase (8-78) U/L Influenza Type A (PCR) NEGATIVE (Negative) Influenza Type B (PCR) NEGATIVE (Negative) RSV RNA Qual (PCR) NEGATIVE (Negative) SARS-CoV-2 RNA (RT-PCR) POSITIVE A (Negative) Imaging Data CT scan - head: Attestation: I personally reviewed and interpreted this imaging study as follows: Radiologist's impression: No acute intracranial pathology. Lumbar spine x-ray: Attestation: I personally reviewed and interpreted this imaging study as follows: Radiologist's impression: No acute pathology involving the lumbar spine. ECG Data Attestation: I personally reviewed and interpreted this ECG as follows: Interpretation: Sinus tachycardia at 117 beats per minute, normal axis deviation, normal intervals, nonspecific ST-T changes. Discharge Plan Discharge Clinical Impression: Asthma exacerbation in COPD, COVID-19 virus infection, Hyperglycemia, Fall Patient Disposition: Admitted As Inpatient Prescriptions: No Action Levemir FlexTouch U-100 Insuln 100 unit/mL (3 mL) insulin pen 20 unit subcut QAM 90 Days Qty: 18 RF: 1 montelukast 10 mg tablet 10 mg PO BEDTIME 90 Days Qty: 90 RF: 0 (DME) lancets 28 gauge misc See Rx Instructions ea topical TID Qty: 100 RF: 3 (DME) pen needle, diabetic 31 gauge x 3/16 needle See Rx Instructions ea subcut TID Qty: 100 RF: 1 (DME) Depend Underwear For Women S-M Misc See Rx Instructions .ROUTE .MEDSUPPLY Qty: 64 RF: 6 (DME) AeroEclipse II Nebulizer Misc See Rx Instructions .ROUTE .MEDSUPPLY Qty: 1 RF: 0 hydroxyzine pamoate 25 mg capsule 1 cap PO BID RF: 0 ropinirole 1 mg tablet 2 mg PO BID RF: 0 fluticasone propionate 50 mcg/actuation spray,suspension 1 spray intranasal DAILY RF: 0 gabapentin 300 mg capsule 300 mg PO DAILY RF: 0 metformin 500 mg tablet 500 mg PO DAILY RF: 0 atorvastatin 80 mg tablet 80 mg PO BEDTIME RF: 0 aspirin [Adult Aspirin Regimen] 81 mg tablet,delayed release (DR/EC) 81 mg PO DAILY 30 Days Qty: 30 RF: 0 amlodipine [Norvasc] 5 mg tablet 5 mg PO DAILY 30 Days Qty: 30 RF: 0 prednisone 20 mg tablet 40 mg PO DAILY 5 Days Qty: 10 RF: 0 prednisone 10 mg tablet See Taper mg PO DAILY Qty: 30 RF: 0 gabapentin 300 mg capsule 900 mg PO BEDTIME RF: 0 trazodone 100 mg tablet 250 mg PO BEDTIME RF: 0 bupropion HCl 150 mg tablet extended release 24 hr 150 mg PO DAILY RF: 0 (DME) oxygen-air delivery systems Device See Rx Instructions .ROUTE .MEDSUPPLY Qty: 1 RF: 0 albuterol sulfate 0.63 mg/3 mL solution for nebulization 0.63 mg inhalation QID PRN (Reason: shortness of breath or wheezing) Qty: 75 RF: 0 albuterol sulfate [ProAir HFA] 90 mcg/actuation HFA aerosol inhaler 2 puff inhalation Q4-6H PRN (Reason: shortness of breath or wheezing) 30 Days Qty: 8.5 RF: 2
[2021-07-16 23:00] VITALS: BP 122/54; PULSE 109; RESP 29; O2SAT 99; BMI 40.6
[2021-07-16 23:09] LABS: Glucose, Whole Blood 359 mg/dL (60-115)
[2021-07-16] MEDS: methylPREDNISolone Sod Succ 125 MG/2 ML VIAL IVPUSH (23:30)
[2021-07-16] MEDS: Magnesium Sulfate/H2O 2 GM/50 ML PIGGYBACK IV (23:30)
[2021-07-16] MEDS: Albuterol/Iprat 2.5/0.5MG 3 ML AMPUL.NEB INHALE (23:50)
[2021-07-16] MEDS: Albuterol Sulfate (0.083%) 2.5 MG/3 ML VIAL.NEB 5 MG INHALE (23:50)
[2021-07-16 23:51] VITALS: PULSE 109; RESP 29
[2021-07-17] VITALS (10 sets, daily range): BP systolic 105–155; BP diastolic 49–64; PULSE 88–108; RESP 18–26; TEMP 36.6–36.9; O2SAT 94–99
[2021-07-17] MEDS: levoFLOXacin/D5W 750 MG/150 ML PIGGYBACK 100 MG IV
[2021-07-17 00:07] LABS: Basophils Percent Auto 0.1 % (0-2); Eosinophils Absolute Auto 0.1 X10*3/uL (0.0-0.4); Eosinophils Percent Auto 0.5 % (0-4); Hematocrit 36.7 % (37.0-47.0); Hemoglobin 11.9 g/dl (12.0-16.0); Imm Gran Abs Auto 0.11 X10*3/uL (0.00-0.03); Imm Gran Pct Auto 0.8 % (0.0-0.4); Lymphocytes Percent Auto 7.6 % (20-40); MANUAL DIFF FLAG SCAN; Mean Corpuscular HGB Conc 32.4 g/dl (31.0-35.0); Mean Corpuscular Hemoglobin 29.2 pg (27.0-33.0); Mean Corpuscular Volume 90.2 fL (80.0-98.0); Monocytes Absolute Auto 1.6 X10*3/uL (0.1-1.2); Monocytes Percent Auto 11.9 % (2-11); Neutrophils Absolute Auto 10.4 x10*3/uL (2.0-8.3); Neutrophils Percent Auto 79.1 % (45-73); Red Blood Count 4.07 X10*6/uL (4.20-5.50); Red Cell Distribution Width 13.3 % (11.0-16.0); SCAN SMEAR FLAG 1; White Blood Count 13.2 X10*3/uL (4.8-10.8)
[2021-07-17 00:17] LABS: Lactic Acid 1.5 mmol/L (0.5-2.0)
[2021-07-17 00:26] LABS: Alanine Aminotransferase 24 U/L (0-31); Albumin Level 3.3 g/dL (3.5-5.0); Alkaline Phosphatase 40 U/L (39-117); Anion Gap 17 (12-20); Aspartate Amino Transferase 19 U/L (5-31); B Type Natriuretic Peptide 14 pg/mL (<100); Bilirubin Direct 0.2 mg/dL (0.0-0.5); Bilirubin Total 0.5 mg/dL (0.0-1.0); Blood Urea Nitrogen 21 mg/dL (9-16); Calcium 8.4 mg/dL (8.4-10.2); Carbon Dioxide 24 mmol/L (22-29); Chloride 98 mmol/L (96-108); Creatinine Clr Calc Pharmacy 26.4; Estimated Glomerular Filt Rate 24; Glucose Random 391 mg/dL (60-115); Lipase 42 U/L (8-78); Magnesium 1.7 mg/dL (1.6-2.6); Potassium 4.3 mmol/L (3.3-5.1); Sodium 135 mmol/L (135-145); Total Protein 5.9 g/dL (6.5-8.0)
[2021-07-17 00:28] LABS: SLIDE REVIEW VERIFIED
[2021-07-17 00:58] LABS: Influenza A PCR NEGATIVE (Negative); Influenza B PCR NEGATIVE (Negative); Resp Syncy Virus RNA Qual PCR NEGATIVE (Negative); SARS COV2 PCR INHOUSE POSITIVE (Negative)
[2021-07-17] MEDS: Insulin Regular, Human 100 UNIT/ML 3 ML VIAL 10 UNIT IVPUSH (01:25)
--- NOTE | 2021-07-17 01:36 | P.HPHOSP_ITS ---
History of Present Illness Date of Service: 07/17/21 Chief Complaint: Fall 71-year-old female with a past medical history of hypertension, hyperlipidemia, diabetes, GERD, obesity, ALDO on CPAP, osteoarthritis, osteo chondroma left femur, COPD on 2 L of home oxygen; COVID-19 vaccinated; presented to the hospital today with a chief complaint of fall. Patient reports that she was on her in recliner and subsequently she tripped and fell over;denies any head strike or loss of consciousness. Denies any chest brittaney n or palpitations. Reports that she has been having shortness of breath which has worsened; denies any fever chills or cough. Mentioned she uses home oxygen. Denies any numbness tingling or focal weakness. Denies any GI symptoms. Review of all other systems is negative except mentioned above ER course: Per ER team patient noted to have bilateral wheezing on examination; given nebu lizations and steroids. On follow-up patient COVID came back positive. CT head and lumbar spine x-ray showed no acute findings; patient given a dose of Levaquin. Admitted to the hospital for further management [facility] Medical History Allergic rhinitis Arthritis Constipation due to opioid therapy COPD (chronic obstructive pulmonary disease) CPAP (continuous positive airway pressure) dependence Diabetes Diabetes Elevated cholesterol GERD (gastroesophageal reflux disease) History of adrenal adenoma History of diverticulitis History of restless legs syndrome Hx SBO Hyperlipidemia Obesity (BMI 30-39.9) Obesity due to excess calories ALDO (obstructive sleep apnea) Osteoarthritis of left knee Osteochondroma of left femur Family History Father HTN (hypertension) Diabetes mellitus Mother HTN (hypertension) Liver cancer Pertinent family history: as above Surgical History H/O colonoscopy H/O excision of mass H/O exploratory laparotomy History of appendectomy History of arthroscopy of left knee History of cholecystectomy History of hysterectomy History of oophorectomy History of partial colectomy History of surgery Hx of cataract extraction Social History 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: Family 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 Other:: ex Housing: House Are you a primary career development engineer to a significant other at home: No Do you presently have visiting nurse or other home services: Yes Alcohol intake: never Patient Tobacco Use Status: Never used Tobacco Second Hand Smoke Exposure: Yes Advance Directives: Yes Advance Directives on File: Yes Advance Directives Date on File: 07/08/21 service: No Current occupational status: unemployed Meds Allergies Allergy/AdvReac Type Severity Reaction Status Date / Time adhesive tape [ADHESIVE TAPE] Allergy Intermediate RASH Verified 06/26/21 10:38 trimethobenzamide Allergy Mild NAUSEA Verified 06/26/21 10:38 [From TIGAN] environmental Allergy Intermediate Nasal Uncoded 06/26/21 10:38 congestion Home Medications Medication Instructions Recorded Confirmed Last Taken Type bupropion HCl 150 mg 24 hr tablet, 150 mg PO DAILY 04/25/20 07/07/21 07/07/21 History extended release oxygen-air delivery systems #1 04/25/20 06/29/21 07/07/21 History trazodone 100 mg tablet 250 mg PO BEDTIME 04/25/20 07/07/21 07/06/21 History gabapentin 300 mg capsule 900 mg PO BEDTIME cap 05/13/21 07/07/21 07/06/21 History atorvastatin 80 mg tablet 80 mg PO BEDTIME 06/29/21 07/07/21 07/06/21 History fluticasone propionate 50 1 spray INTRANASAL DAILY 06/29/21 07/07/21 07/07/21 History mcg/actuation nasal spray,suspension gabapentin 300 mg capsule 300 mg PO DAILY 06/29/21 07/07/21 07/07/21 History hydroxyzine pamoate 25 mg capsule 1 cap PO BID 06/29/21 07/07/21 07/07/21 History metformin 500 mg tablet 500 mg PO DAILY 06/29/21 07/07/21 07/07/21 History ropinirole 1 mg tablet 2 mg PO BID 06/29/21 07/07/21 07/07/21 History Physical Exam Vital Signs and Narrative: Vital Signs: Last Vital Signs Pulse 107 H 07/17/21 00:00 Resp 18 07/17/21 00:00 BP 119/54 L 07/17/21 00:00 Pulse Ox 99 07/17/21 00:00 Oxygen Flow Rate 2 07/16/21 23:00 BMI result Body Mass Index 40.6 Gen: Appears be in no acute distress; speaks in full sentences. On supplemental oxygen. HEENT: NCAT, Moist mucosa. Pulmonary: Bilateral wheezing noted CVS: Normal S1-S2 Abdomen: BS+, Soft, Nontender Extremities: Warm well perfused Neuro: Alert and awake. Results Labs CBC and Chem 7: 07/16/21 23:59 07/16/21 23:59 Labs: Laboratory Results - last 24 hr 07/16/21 07/16/21 07/16/21 22:58 23:59 23:59 MCV 90.2 MCH 29.2 MCHC 32.4 RDW 13.3 Plt Count Not Reportable MPV Not Reportable Immature Gran % (Auto) 0.8 H Neut % (Auto) 79.1 H Lymph % (Auto) 7.6 L Simpson % (Auto) 11.9 H Eos % (Auto) 0.5 Baso % (Auto) 0.1 Lymph # (Auto) 1.0 L Simpson # (Auto) 1.6 H Eos # (Auto) 0.1 Baso # (Auto) 0.0 Abs Immat Gran (auto) 0.11 H Absolute Neuts (auto) 10.4 H Absolute Nucleated RBC 0.000 Nucleated RBC % (auto) 0.0 Smear Tech's Comments VERIFIED Anion Gap 17 Estim Creat Clear Calc 26.4 Estimated GFR 24 POC Glucose 359 H* Random Glucose 391 H* Lactic Acid Calcium 8.4 D Magnesium 1.7 Total Bilirubin 0.5 Direct Bilirubin 0.2 AST 19 D ALT 24 Alkaline Phosphatase 40 B-Natriuretic Peptide Total Protein 5.9 L Albumin 3.3 L Lipase 42 Influenza Type A (PCR) Influenza Type B (PCR) RSV RNA Qual (PCR) SARS-CoV-2 RNA (RT-PCR) 07/16/21 07/16/21 07/17/21 23:59 23:59 00:07 MCV MCH MCHC RDW Plt Count MPV Immature Gran % (Auto) Neut % (Auto) Lymph % (Auto) Simpson % (Auto) Eos % (Auto) Baso % (Auto) Lymph # (Auto) Simpson # (Auto) Eos # (Auto) Baso # (Auto) Abs Immat Gran (auto) Absolute Neuts (auto) Absolute Nucleated RBC Nucleated RBC % (auto) Smear Tech's Comments Anion Gap Estim Creat Clear Calc Estimated GFR POC Glucose Random Glucose Lactic Acid 1.5 Calcium Magnesium Total Bilirubin Direct Bilirubin AST ALT Alkaline Phosphatase B-Natriuretic Peptide 14 Total Protein Albumin Lipase Influenza Type A (PCR) NEGATIVE Influenza Type B (PCR) NEGATIVE RSV RNA Qual (PCR) NEGATIVE SARS-CoV-2 RNA (RT-PCR) POSITIVE A Imaging Radiologist's Impressions: Impressions Chest X-Ray 07/17/21 00:29 IMPRESSION: * No acute intrathoracic disease. * No evidence of a traumatic osseous injury involving the lumbar spine. Lumbar Spine X-Ray 07/17/21 00:29 IMPRESSION: * No acute intrathoracic disease. * No evidence of a traumatic osseous injury involving the lumbar spine. Head CT 07/17/21 00:30 IMPRESSION: No acute intracranial pathology. Assessment and Plan (1) Asthma exacerbation in COPD: Status: Acute (2) COVID-19 virus infection: Status: Acute (3) Hyperglycemia: Status: Acute 71-year-old female with a past medical history of hypertension, hyperlipidemia, diabetes, GERD, obesity, ALDO on CPAP, osteoarthritis, osteo chondroma left femur, COPD on 2 L of home oxygen; COVID-19 vaccinated; presented to the hospital today with a chief complaint of fall/SOB-> noted to have all in conditions Fall: Mechanical in nature. CT head and lumbar spine showed no acute findings. Patient reports back pain- chronic; denies any numbness tingling or focal weakness. Pain control. COVID-19 positive: Patient on supplemental oxygen at baseline. Supportive care. Patient on steroids. id consult COPD exacerbation: Patient noted to bilateral wheezing. Patient given nebulizations. Spoke to the nursing excavating supervisor for isolated room to continue nebulizer treatments as the patient is COVID positive. Continue Solu-Medrol 40 mg Diabetes with hyperglycemia: Will keep the patient on Lantus plus insulin sl iding scale. Monitor fingerstick glucose. History of ALDO: Continue home CPAP at night For all other chronic conditions home medications will be continued DVT prophylaxis: Lovenox Code status: Full code Quality Stroke Does the patient have a stroke diagnosis?: No VTE Prior VTE?: No VTE Risk Level:: Medical - moderate - high VTE Device Contraindication: Treatment Not Indicated VTE Drug Contraindication: N/A - Med Ordered
[2021-07-17 03:14] LABS: Appearance Urine HAZY; Color Urine OTHER; Glucose Urine UA >=1000 MG/DL (NEG); Leukocyte Esterase Urine NEG (NEG); Nitrite Urine NEG (NEG); PH 5.5 (5.0-8.0); Specific Gravity - Urine 1.025 (1.005-1.025); UACC Culture Trigger NO; Urine Blood 3+ (NEG); Urine Ketones NEG (NEG); Urine Protein 2+ MG/DL (NEG-TRACE)
[2021-07-17 03:33] LABS: Amorphous Sediment Urine 3+ /LPF; Mucus Urine 2+ /LPF; Squamous Epithelial Cell Urine 1+ /LPF
[2021-07-17 07:25] LABS: Basophils Percent Auto 0.1 % (0-2); Eosinophils Percent Auto 0.1 % (0-4); Hemoglobin 10.1 g/dl (12.0-16.0); Imm Gran Abs Auto 0.04 X10*3/uL (0.00-0.03); Imm Gran Pct Auto 0.5 % (0.0-0.4); Lymphocytes Absolute Auto 0.4 X10*3/uL (1.2-4.9); Lymphocytes Percent Auto 4.4 % (20-40); Mean Corpuscular HGB Conc 31.6 g/dl (31.0-35.0); Mean Corpuscular Hemoglobin 28.2 pg (27.0-33.0); Mean Corpuscular Volume 89.4 fL (80.0-98.0); Mean Platelet Volume 12.4 fL (9.4-12.3); Monocytes Absolute Auto 0.2 X10*3/uL (0.1-1.2); Monocytes Percent Auto 2.2 % (2-11); Neutrophils Percent Auto 92.7 % (45-73); Platelet Count 170 X10*3/uL (160-400); Red Blood Count 3.58 X10*6/uL (4.20-5.50); Red Cell Distribution Width 13.2 % (11.0-16.0); SCAN SMEAR FLAG 1; White Blood Count 8.7 X10*3/uL (4.8-10.8)
[2021-07-17 07:40] LABS: Anion Gap 13 (12-20); Blood Urea Nitrogen 25 mg/dL (9-16); Calcium 8.6 mg/dL (8.4-10.2); Carbon Dioxide 29 mmol/L (22-29); Chloride 96 mmol/L (96-108); Creatinine Clr Calc Pharmacy 24.7; Estimated Glomerular Filt Rate 23; Glucose Random 546 mg/dL (60-115); Potassium 4.2 mmol/L (3.3-5.1); Sodium 134 mmol/L (135-145)
[2021-07-17 07:41] LABS: Glucose, Whole Blood 457 mg/dL (60-115)
[2021-07-17] MEDS: methylPREDNISolone Sod Succ 40 MG/ML VIAL IVPUSH ×3 (07:56→18:18)
[2021-07-17] MEDS: 0.9 % Sodium Chloride Flush 3 ML SYRINGE IVFLUSH ×2 (07:56→15:00)
[2021-07-17 08:13] LABS: MANUAL DIFF FLAG SCAN
--- NOTE | 2021-07-17 08:37 | PC.NURSE ---
waiting to hear back from hopsitalist about blood glucose level and new insulin order.
[2021-07-17] MEDS: Insulin Lispro 100 UNIT/ML 3 ML VIAL SUBCUT ×4 (10:19→21:22)
[2021-07-17] MEDS: Insulin Lispro 100 UNIT/ML 3 ML VIAL 10 UNIT SUBCUT ×2 (10:20→18:19)
--- NOTE | 2021-07-17 10:49 | PC.NURSE ---
pt resting comfortably in bed, no rachael, 2l nc. shields in place. pt aware of plan for admission and denied having any questions at this time.
--- NOTE | 2021-07-17 11:22 | MHC.CM.PN ---
Addendum entered by Coral Crowder 07/17/21 11:30: PT DISCHARGED HOME WITH [facility] ON 07/04/21. ANOTHER REFERRAL WAS MADE TO THEM FOR POST DC NEEDS Original Note: PT WAS RECENTLY DISCHARGED TO [facility] FOR STR CM CONTACTED PT VIA T/C [phone]. PT REPORTS SHE SIGNED HERSELF OUT OF [facility] THE DAY OF ADMISSION, SHE REPORTS THE CONDITIONS THERE WERE TERRIBLE AND SHE FEELS THEY GAVE HER COVID-19 PT REPORTS SHE WILL NOT GO TO [facility] AT DC, SHE SAYS SHE WILL GO HOME AND NO WHERE ELSE. PTS EX- LIVES WITH HER AND SHE HAS HOME O2 PT CONFIRMS HER PCP IS IVAN DUMONT AND SHE HAS A HCP ON FILE PT REPORTS SHE WAS SUPPOSED TO HAVE A VNA PRIOR TO HER LAST INPT ADMISSION BUT IS UNSURE OF THE AGENCY. IMM DELIVERED VIA T/C, ORIGINAL TO BE MAILED, COPY SENT TO [facility] CURRENT DC PLAN IS HOME WITH [facility] EX- WILL TRANSPORT
[2021-07-17] MEDS: Albuterol/Iprat 2.5/0.5MG 3 ML AMPUL.NEB INHALE ×2 (11:51→20:04)
[2021-07-17 12:01] LABS: Glucose, Whole Blood 472 mg/dL (60-115)
--- NOTE | 2021-07-17 12:55 | PM.EVENT ---
Event Note Date of Service: 07/17/21 Event Note: I personally and examined this patient and reviewed record, labs, meds, vitals and I agree with assessment plan from H and P from this morning. Assymptomatic from covid perspective so no steroid at this time.
--- NOTE | 2021-07-17 15:15 | PC.NURSE ---
patient requested medication for anxiety, Dr. Mendoza was notified of patients request as well as the patients current poc. No new orders have been given at this time, will continue to monitor.
[2021-07-17 16:21] LABS: Glucose, Whole Blood 444 mg/dL (60-115)
--- NOTE | 2021-07-17 16:57 | W.PM.IDCN ---
History of Present Illness Data of Consult Service Date: 07/17/21 Requesting physician: Rajat Mendoza Primary Care Provider: Unknown Physician HPI Reason for consult: COVID She presents with fall out of chair She normally has shortness of breath and uses oxygen She takes 2 liters She is now on room air Review of Systems Review of Systems: Yes all other systems are reviewed and are negative [facility] Past Medical History Medical History Allergic rhinitis Arthritis Constipation due to opioid therapy COPD (chronic obstructive pulmonary disease) CPAP (continuous positive airway pressure) dependence Diabetes Diabetes Elevated cholesterol GERD (gastroesophageal reflux disease) History of adrenal adenoma History of diverticulitis History of restless legs syndrome Hx SBO Hyperlipidemia Obesity (BMI 30-39.9) Obesity due to excess calories ALDO (obstructive sleep apnea) Osteoarthritis of left knee Osteochondroma of left femur Family History Family History Father HTN (hypertension) Diabetes mellitus Mother HTN (hypertension) Liver cancer Family history: reviewed and not pertinent Surgical History Surgical History H/O colonoscopy H/O excision of mass H/O exploratory laparotomy History of appendectomy History of arthroscopy of left knee History of cholecystectomy History of hysterectomy History of oophorectomy History of partial colectomy History of surgery Hx of cataract extraction Social History Social History 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: Spouse 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 Other:: ex Housing: House Are you a primary child care associate teacher to a significant other at home: No Do you presently have visiting nurse or other home services: No Alcohol intake: unknown Patient Tobacco Use Status: Never used Tobacco Second Hand Smoke Exposure: Yes Advance Directives Date on File: 07/08/21 service: No Current occupational status: unemployed Meds Allergies Allergy/AdvReac Type Severity Reaction Status Date / Time adhesive tape [ADHESIVE TAPE] Allergy Intermediate RASH Verified 08/07/21 13:06 trimethobenzamide Allergy Mild NAUSEA Verified 08/07/21 13:06 [From TIGAN] environmental Allergy Intermediate Nasal Uncoded 08/07/21 13:06 congestion Active Medications: Current Medications Acetaminophen (Acetaminophen 325 Mg Tablet) 650 mg PO Q6H PRN PRN Reason: Pain, Mild (Pain Scale 1-3) Albuterol Sulfate (Albuterol Sulfate (0.083%) 2.5 Mg/3 Ml Vial.Neb) 2.5 mg INHALE Q2H PRN PRN Reason: Shortness of Breath/Wheezing Albuterol Sulfate (Albuterol Sulfate 90 Mcg 8 Gm Inhaler) 2 puff INHALE Q4H PRN PRN Reason: shortness of breath or wheezing Albuterol/Ipratropium (Albuterol/Iprat 2.5/0.5mg 3 Ml Ampul.Neb) 3 ml INHALE RQ4H WHILE AWAKE [facility] Last Admin: 07/17/21 11:51 Dose: 3 ml Documented by: Amlodipine Besylate (Amlodipine Besylate 5 Mg Tablet) 5 mg PO DAILY [facility]; Protocol Atorvastatin Calcium (Atorvastatin Calcium 80 Mg Tablet) 80 mg PO BEDTIME [facility] Bupropion HCl (Bupropion Hcl Xl 150 Mg Tab.Er.24h) 150 mg PO DAILY [facility] Dextrose (Dextrose 50 % 25 Gm/50 Ml Vial) 25 gm IVPUSH Q15M PRN; Protocol PRN Reason: per Hypoglycemia Standing Ord. Enoxaparin Sodium (Enoxaparin Sodium 40 Mg/0.4 Ml Syringe) 40 mg SUBCUT Q24H [facility] Last Admin: 07/17/21 01:48 Dose: Not Given Documented by: Fluticasone Propionate (Fluticasone Propionate Nasal 16 Gm [place]) 1 spray NOSTRIL-B DAILY [facility] Gabapentin (Gabapentin 300 Mg Capsule) 300 mg PO DAILY [facility] Gabapentin (Gabapentin 300 Mg Capsule) 900 mg PO BEDTIME [facility] Glucose (Glucose Gel 15 Gm Gel..Gram.) 15 gm PO Q15M PRN; Protocol PRN Reason: per Hypoglycemia Standing Ord. Hydroxyzine HCl (Hydroxyzine Hcl 25 Mg Tablet) 25 mg PO BID [facility] Insulin Glargine (Insulin Glargine,Hum.Rec.Anlog 100 Unit/Ml 10 Ml Vial) 20 unit SUBCUT BEDTIME [facility] Insulin Human Lispro (Insulin Lispro 100 Unit/Ml 3 Ml Vial) 0 - 10 unit SUBCUT QIDACHS [facility]; Protocol Last Admin: 07/17/21 14:59 Dose: 10 unit Documented by: Levofloxacin (Levofloxacin 500 Mg Tablet) 500 mg PO Q24H [facility] Last Admin: 07/17/21 01:49 Dose: Not Given Documented by: Lisinopril (Lisinopril 5 Mg Tablet) 5 mg PO DAILY [facility]; Protocol Melatonin (Melatonin 3 Mg Tablet) 6 mg PO BEDTIME PRN PRN Reason: Insomnia Metformin HCl (Metformin Hcl 500 Mg Tablet) 500 mg PO DAILY [facility] Methylprednisolone Sodium Succinate (Methylprednisolone Sod Succ 40 Mg/Ml Vial) 40 mg IVPUSH Q6H [facility] Last Admin: 07/17/21 15:00 Dose: 40 mg Documented by: Montelukast Sodium (Montelukast Sodium 10 Mg Tablet) 10 mg PO BEDTIME [facility]ANGEL Morphine Sulfate (Morphine Sulfate 4 Mg/Ml Cartridge) 1 mg IVPUSH Q4H PRN; Protocol PRN Reason: Pain, SOB Ropinirole HCl (Ropinirole Hcl 2 Mg Tablet) 2 mg PO BID [facility] Senna (Sennosides 8.6 Mg Tablet) 17.2 mg PO BEDTIME PRN PRN Reason: Constipation Sodium Chloride (0.9 % Sodium Chloride Flush 3 Ml Syringe) 3 ml IVFLUSH QSHIFT [facility] Last Admin: 07/17/21 15:00 Dose: 3 ml Documented by: Trazodone HCl (Trazodone Hcl 100 Mg Tablet) 250 mg PO BEDTIME [facility] Home Medications Medication Instructions Recorded Confirmed Last Taken Type bupropion HCl 150 mg 24 hr tablet, 150 mg PO DAILY 04/25/20 08/07/21 07/07/21 History extended release oxygen-air delivery systems #1 04/25/20 07/17/21 07/07/21 History trazodone 100 mg tablet 250 mg PO BEDTIME 04/25/20 08/07/21 07/06/21 History gabapentin 300 mg capsule 900 mg PO BEDTIME cap 05/13/21 08/07/21 07/06/21 History fluticasone propionate 50 1 spray INTRANASAL DAILY 06/29/21 08/07/21 07/07/21 History mcg/actuation nasal spray,suspension gabapentin 300 mg capsule 300 mg PO DAILY 06/29/21 08/07/21 07/07/21 History hydroxyzine pamoate 25 mg capsule 1 cap PO BID 06/29/21 08/07/21 07/07/21 History metformin 500 mg tablet 500 mg PO DAILY 06/29/21 08/07/21 07/07/21 History ropinirole 2 mg tablet 2 mg PO BID 07/17/21 08/07/21 Unknown History blood sugar diagnostic (FreeStyle 08/09/21 Unknown History Lite Strips) Physical Exam Vital Signs: Vital Signs: Last Vital Signs Temp 98.0 F 07/17/21 11:33 Pulse 108 H 07/17/21 12:07 Resp 21 H 07/17/21 12:07 BP 141/61 H 07/17/21 11:33 Pulse Ox 96 07/17/21 11:33 Oxygen Flow Rate 2 07/16/21 23:00 BMI result Body Mass Index 40.6 Const: General: cooperative Eyes: General: appearance normal, both eyes and all related structures Pupils: Equal, round and reactive pupils present Resp: Effort & Inspection: normal respiratory effort Cardio: Rate: regular rate Rhythm: regular rhythm GI: Palpation (GI): nontender Neuro: Cranial nerves: Yes Equal, round and reactive pupils present Results Labs CBC & Chem 7: 07/25/21 06:54 07/25/21 06:54 Labs: Short CBC 07/16/21 07/17/21 Range/Units 23:59 06:58 WBC 13.2 H 8.7 (4.8-10.8) X10*3/uL Hgb 11.9 L 10.1 L (12.0-16.0) g/dl Hct 36.7 L 32.0 L (37.0-47.0) % Plt Count Not Reportable 170 D BMP 07/16/21 07/17/21 23:59 06:58 Sodium 135 134 L Potassium 4.3 4.2 Chloride 98 96 Carbon Dioxide 24 29 BUN 21 H 25 H Creatinine 2.01 H 2.14 H Calcium 8.4 D 8.6 Liver Function 07/16/21 Range/Units 23:59 Total Bilirubin 0.5 (0.0-1.0) mg/dL Direct Bilirubin 0.2 (0.0-0.5) mg/dL AST 19 D (5-31) U/L ALT 24 (0-31) U/L Alkaline Phosphatase 40 (39-117) U/L Albumin 3.3 L (3.5-5.0) g/dL Urine 07/17/21 Range/Units 03:06 Urine Color OTHER Urine Appearance HAZY Urine pH 5.5 (5.0-8.0) Ur Specific [place] 1.025 (1.005-1.025) Urine Protein 2+ H (NEG-TRACE) MG/DL Urine Glucose (UA) >=1000 H (NEG) MG/DL Assessment and Plan (1) Asthma exacerbation in COPD: Status: Resolved (2) COVID-19 virus infection: Status: Resolved She has rather unknown duration of lung symptoms if any as presents with fall She is responding to steroids She has no signs of UTI and no pyuria of note (3) Fall: Status: Resolved Plan May continue steroids and oxygen as needed Would stop Levaquin No need for Remdesivir or Baricitinib at this time
[2021-07-17] MEDS: Gabapentin 300 MG CAPSULE PO (18:18)
[2021-07-17] MEDS: amLODIPine Besylate 5 MG TABLET PO (18:18)
[2021-07-17] MEDS: metFORMIN HCl 500 MG TABLET PO (18:18)
[2021-07-17] MEDS: Fluticasone Propionate Nasal 16 GM SPRAY 1 SPRAY NOSTRIL-B (18:18)
[2021-07-17] MEDS: lisinopriL 5 MG TABLET PO (18:19)
[2021-07-17] MEDS: buPROPion HCl XL 150 MG TAB.ER.24H PO (18:19)
[2021-07-17 20:52] LABS: Glucose, Whole Blood 453 mg/dL (60-115)
[2021-07-17] MEDS: traZODone HCL 100 MG TABLET 250 MG PO (21:20)
[2021-07-17] MEDS: Montelukast Sodium 10 MG TABLET PO (21:20)
[2021-07-17] MEDS: Atorvastatin Calcium 80 MG TABLET PO (21:21)
[2021-07-17] MEDS: hydrOXYzine HCL 25 MG TABLET PO (21:21)
[2021-07-17] MEDS: rOPINIRole HCL 2 MG TABLET PO (21:21)
[2021-07-17] MEDS: Insulin Glargine,Hum.rec.anlog 100 UNIT/ML 10 ML VIAL 20 UNIT SUBCUT (21:22)
[2021-07-17] MEDS: Gabapentin 300 MG CAPSULE 900 MG PO (21:22)
--- NOTE | 2021-07-17 21:44 | PC.NURSE ---
patient a&ox3, vss, night monitor nsr, pt medicated per order, call hurst within reach, will continue to monitor.
[2021-07-18] VITALS (12 sets, daily range): BP systolic 89–116; BP diastolic 39–53; PULSE 77–101; RESP 16–22; TEMP 36.2–36.6; O2SAT 92–97
[2021-07-18] MEDS: 0.9 % Sodium Chloride Flush 3 ML SYRINGE IVFLUSH ×3 (01:44→18:34)
[2021-07-18] MEDS: Enoxaparin Sodium 40 MG/0.4 ML SYRINGE SUBCUT (01:44)
[2021-07-18] MEDS: methylPREDNISolone Sod Succ 40 MG/ML VIAL IVPUSH ×4 (01:44→21:36)
--- NOTE | 2021-07-18 05:48 | PM.EVENT ---
Event Note Date of Service: 07/18/21 Event Note: NSVT: pt had 20 beat Vtach; ordered basic p[yvette and mag levels; Will defer to Day team for cardiology follow up. pt asymptomatic
[2021-07-18 07:19] LABS: Glucose, Whole Blood 444 mg/dL (60-115)
[2021-07-18 07:49] LABS: Magnesium 2.3 mg/dL (1.6-2.6)
[2021-07-18] MEDS: Albuterol/Iprat 2.5/0.5MG 3 ML AMPUL.NEB INHALE ×4 (08:01→20:07)
[2021-07-18] MEDS: rOPINIRole HCL 2 MG TABLET PO ×2 (08:13→21:40)
[2021-07-18] MEDS: metFORMIN HCl 500 MG TABLET PO (08:13)
[2021-07-18] MEDS: Gabapentin 300 MG CAPSULE PO (08:14)
[2021-07-18] MEDS: buPROPion HCl XL 150 MG TAB.ER.24H PO (08:14)
[2021-07-18] MEDS: Fluticasone Propionate Nasal 16 GM SPRAY 1 SPRAY NOSTRIL-B (08:15)
[2021-07-18] MEDS: Insulin Lispro 100 UNIT/ML 3 ML VIAL SUBCUT ×4 (08:15→21:37)
[2021-07-18] MEDS: hydrOXYzine HCL 25 MG TABLET PO ×2 (08:22→21:40)
--- NOTE | 2021-07-18 08:49 | P.CDIC_ITS ---
CDI Concurrent Query Documentation Clarification: PHYSICIAN'S DOCUMENTATION REQUEST Date of Query: 07/18/21 0849 Patient Name: Mine Peacock Admit Date: 07/17/21 Dear Doctor, A review of the medical record indicates additional documentation may be needed. Please review below and update the documentation accordingly. Risk Factors/Clinical Indicators/Treatments BMI: 40.6 If possible, please provide an associated diagnosis related to the abnormal BMI, such as: For a BMI >= 40: * Overweight * Obesity * Due to excess calories * Drug induced * Due to other cause * Severe or Morbid Obesity Or: * BMI is not significant * Other (please specify) * Unable to determine Use of terms such as suspected, likely, concern for, or probable (associated with a specific diagnosis that is being evaluated, monitored, or treated as if it exists) are acceptable and can be coded in the inpatient setting, when documented at the time of discharge. Thank you, Teresita Rodríguez [facility], CDIS Extension: [phone] Please use your independent medical judgment in providing your response. THIS QUERY IS PART OF THE PERMANENT MEDICAL RECORD Provider Response: Morbid Obesity
--- NOTE | 2021-07-18 08:49 | MHC.CDI.CONC ---
CDI Concurrent Query Documentation Clarification: PHYSICIAN'S DOCUMENTATION REQUEST Date of Query: 07/18/21 0849 Patient Name: Mine Peacock Admit Date: 07/17/21 Dear Doctor, A review of the medical record indicates additional documentation may be needed. Please review below and update the documentation accordingly. Risk Factors/Clinical Indicators/Treatments BMI: 40.6 If possible, please provide an associated diagnosis related to the abnormal BMI, such as: For a BMI >= 40: Overweight Obesity Due to excess calories Drug induced Due to other cause Severe or Morbid Obesity Or: BMI is not significant Other (please specify) Unable to determine Use of terms such as suspected, likely, concern for, or probable (associated with a specific diagnosis that is being evaluated, monitored, or treated as if it exists) are acceptable and can be coded in the inpatient setting, when documented at the time of discharge. Thank you, Teresita Rodríguez [facility], CDIS Extension: [phone] Please use your independent medical judgment in providing your response. THIS QUERY IS PART OF THE PERMANENT MEDICAL RECORD Provider Response: Morbid Obesity
--- NOTE | 2021-07-18 08:51 | PC.NURSE ---
D apa notified of BP, Pt alert/oriented, skin pink warm and dry. states mild dizziness when repositioned for breakfast, BP meds held 20 units insulin given sq of lispro for poc 444, sat 95-96% on baseline 2lpm via nc, no visible sob. Ping patent
[2021-07-18] MEDS: Insulin Lispro 100 UNIT/ML 3 ML VIAL 10 UNIT SUBCUT ×2 (08:55→18:34)
[2021-07-18 11:18] LABS: Glucose, Whole Blood 384 mg/dL (60-115)
--- NOTE | 2021-07-18 13:19 | P.PNIM_ITS ---
Subjective Subjective Date of Service: 07/19/21 Interval History: f/u fall, covid that is assymptomatic Review of Systems Gen: no fever Resp: no sob, Physical Exam Vital Signs: Vital Signs: Last Vital Signs Temp 98 F 07/17/21 19:41 Pulse 82 07/18/21 11:13 Resp 20 07/18/21 11:13 BP 100/49 L 07/18/21 10:24 Pulse Ox 96 07/18/21 10:08 Oxygen Flow Rate 2 07/16/21 23:00 BMI result Body Mass Index 40.6 Objective Data Active Medications Acetaminophen (Acetaminophen 325 Mg Tablet) 650 mg PO Q6H PRN PRN Reason: Pain, Mild (Pain Scale 1-3) Albuterol Sulfate (Albuterol Sulfate (0.083%) 2.5 Mg/3 Ml Vial.Neb) 2.5 mg INHALE Q2H PRN PRN Reason: Shortness of Breath/Wheezing Albuterol Sulfate (Albuterol Sulfate 90 Mcg 8 Gm Inhaler) 2 puff INHALE Q4H PRN PRN Reason: shortness of breath or wheezing Albuterol/Ipratropium (Albuterol/Iprat 2.5/0.5mg 3 Ml Ampul.Neb) 3 ml INHALE RQ4H WHILE AWAKE [facility] Last Admin: 07/18/21 11:12 Dose: 3 ml Documented by: ORESTES Amlodipine Besylate (Amlodipine Besylate 5 Mg Tablet) 5 mg PO DAILY [facility]; Protocol Last Admin: 07/18/21 08:15 Dose: Not Given Documented by: ARIADNE Non-Admin Reason: Decreased Blood Pressure Atorvastatin Calcium (Atorvastatin Calcium 80 Mg Tablet) 80 mg PO BEDTIME [facility] Last Admin: 07/17/21 21:21 Dose: 80 mg Documented by: KARENA Bupropion HCl (Bupropion Hcl Xl 150 Mg Tab.Er.24h) 150 mg PO DAILY [facility] Last Admin: 07/18/21 08:14 Dose: 150 mg Documented by: ARIADNE Dextrose (Dextrose 50 % 25 Gm/50 Ml Vial) 25 gm IVPUSH Q15M PRN; Protocol PRN Reason: per Hypoglycemia Standing Ord. Enoxaparin Sodium (Enoxaparin Sodium 40 Mg/0.4 Ml Syringe) 40 mg SUBCUT Q24H [facility] Last Admin: 07/18/21 01:44 Dose: 40 mg Documented by: EMILIANO Fluticasone Propionate (Fluticasone Propionate Nasal 16 Gm [place]) 1 spray NOSTRIL-B DAILY [facility] Last Admin: 07/18/21 08:15 Dose: 1 spray Documented by: ARIADNE Gabapentin (Gabapentin 300 Mg Capsule) 300 mg PO DAILY [facility] Last Admin: 07/18/21 08:14 Dose: 300 mg Documented by: ARIADNE Gabapentin (Gabapentin 300 Mg Capsule) 900 mg PO BEDTIME [facility] Last Admin: 07/17/21 21:22 Dose: 900 mg Documented by: KARENA Glucose (Glucose Gel 15 Gm Gel..Gram.) 15 gm PO Q15M PRN; Protocol PRN Reason: per Hypoglycemia Standing Ord. Hydroxyzine HCl (Hydroxyzine Hcl 25 Mg Tablet) 25 mg PO BID [facility] Last Admin: 07/18/21 08:22 Dose: 25 mg Documented by: ARIADNE Insulin Glargine (Insulin Glargine,Hum.Rec.Anlog 100 Unit/Ml 10 Ml Vial) 30 un it SUBCUT BEDTIME [facility] Insulin Human Lispro (Insulin Lispro 100 Unit/Ml 3 Ml Vial) 0 - 10 unit SUBCUT QIDACHS [facility]; Protocol Last Admin: 07/18/21 08:15 Dose: 10 unit Documented by: ARIADNE Comments: will give [address] Mendoza Lisinopril (Lisinopril 5 Mg Tablet) 5 mg PO DAILY [facility]; Protocol Last Admin: 07/18/21 08:14 Dose: Not Given Documented by: ARIADNE Non-Admin Reason: Decreased Blood Pressure Melatonin (Melatonin 3 Mg Tablet) 6 mg PO BEDTIME PRN PRN Reason: Insomnia Metformin HCl (Metformin Hcl 500 Mg Tablet) 500 mg PO DAILY [facility] Last Admin: 07/18/21 08:13 Dose: 500 mg Documented by: ARIADNE Methylprednisolone Sodium Succinate (Methylprednisolone Sod Succ 40 Mg/Ml Vial) 40 mg IVPUSH Q6H [facility] Last Admin: 07/18/21 08:16 Dose: 40 mg Documented by: ARIADNE Montelukast Sodium (Montelukast Sodium 10 Mg Tablet) 10 mg PO BEDTIME [facility] Last Admin: 07/17/21 21:20 Dose: 10 mg Documented by: KARENA Morphine Sulfate (Morphine Sulfate 4 Mg/Ml Cartridge) 1 mg IVPUSH Q4H PRN; Protocol PRN Reason: Pain, SOB Ropinirole HCl (Ropinirole Hcl 2 Mg Tablet) 2 mg PO BID [facility] Last Admin: 07/18/21 08:13 Dose: 2 mg Documented by: ARIADNE Senna (Sennosides 8.6 Mg Tablet) 17.2 mg PO BEDTIME PRN PRN Reason: Constipation Sodium Chloride (0.9 % Sodium Chloride Flush 3 Ml Syringe) 3 ml IVFLUSH QSHIFT [facility] Last Admin: 07/18/21 08:15 Dose: 3 ml Documented by: ARIADNE Trazodone HCl (Trazodone Hcl 100 Mg Tablet) 250 mg PO BEDTIME [facility] Last Admin: 07/17/21 21:20 Dose: 250 mg Documented by: KARENA Labs CBC & Chem 7: 07/17/21 06:58 07/19/21 05:57 Labs: Laboratory Results - last 24 hr 07/17/21 07/17/21 07/18/21 16:17 20:46 07:16 POC Glucose 444 H* 453 H* 444 H* Magnesium 07/18/21 07/18/21 07:23 11:14 POC Glucose 384 H* Magnesium 2.3 Microbiology Microbiology Results: Microbiology 07/17/21 06:58 Blood Culture - Preliminary Blood - Venous No growth after 24 hours. 07/17/21 00:57 Blood Culture - Preliminary Blood - Venous No growth after 24 hours. Assessment and Plan (1) COVID-19 virus infection: Status: Acute (2) Asthma exacerbation in COPD: Status: Acute (3) Fall: Status: Acute (4) Hyperglycemia: Status: Acute Assessment and Plan: 71-year-old female with a past medical history of hypertension, hyperlipidemia, diabetes, GERD, obesity, ALDO on CPAP, osteoarthritis, osteo chondroma left femur, COPD on 2 L of home oxygen; COVID-19 vaccinated; presented to the hospital today with a chief complaint of fall/SOB-> noted to have all in conditions Fall: Mechanical in nature.? CT head and lumbar spine showed no acute findings.? Patient reports back pain- chronic; denies any numbness tingling or focal weakness.? Pain control.? PT eval COVID-19 positive:?Assymptomatic, on baseline O2 at home COPD exacerbation:? Nebs and steroid Diabetes with hyperglycemia:?Hyperglycemia d/t steroid, continue lantus ssi, increase Lantus History of ALDO: Continue home CPAP at night For all other chronic conditions home medications will be continued DVT prophylaxis:? Lovenox Code status:? Full code Quality Stroke Does the patient have a stroke diagnosis?: No VTE Prior VTE?: No VTE Risk Level:: Medical - moderate - high VTE Device Contraindication: Treatment Not Indicated VTE Drug Contraindication: N/A - Med Ordered
[2021-07-18 13:39] LABS: Glucose, Whole Blood 335 mg/dL (60-115)
[2021-07-18] MEDS: Insulin Lispro 100 UNIT/ML 3 ML VIAL 7 UNIT SUBCUT (13:51)
[2021-07-18 17:47] LABS: Glucose, Whole Blood 428 mg/dL (60-115)
[2021-07-18 21:16] LABS: Glucose, Whole Blood 511 mg/dL (60-115)
[2021-07-18] MEDS: traZODone HCL 100 MG TABLET 250 MG PO (21:39)
[2021-07-18] MEDS: Atorvastatin Calcium 80 MG TABLET PO (21:39)
[2021-07-18] MEDS: Insulin Glargine,Hum.rec.anlog 100 UNIT/ML 10 ML VIAL 30 UNIT SUBCUT (21:39)
[2021-07-18] MEDS: Gabapentin 300 MG CAPSULE 900 MG PO (21:40)
[2021-07-18] MEDS: Montelukast Sodium 10 MG TABLET PO (21:40)
[2021-07-18 22:34] LABS: Anion Gap 15 (12-20); Blood Urea Nitrogen 54 mg/dL (9-16); Calcium 8.5 mg/dL (8.4-10.2); Carbon Dioxide 27 mmol/L (22-29); Chloride 97 mmol/L (96-108); Creatinine Clr Calc Pharmacy 18.5; Estimated Glomerular Filt Rate 16; Glucose Random 557 mg/dL (60-115); Potassium 4.4 mmol/L (3.3-5.1); Sodium 135 mmol/L (135-145)
--- NOTE | 2021-07-18 23:09 | PC.NURSE ---
Addendum entered by Sandra Baca RN 07/19/21 07:33: 0650; lab called with critical glucose of 367. labs show they were drawn at 0557. obstetrics technician checked patient's blood sugar at [address] Richard made aware. Day shift RN made aware in nurse to nurse report. Addendum entered by Sandra Baca RN 07/19/21 05:00: at 2352; blood sugar 512, placed order for 5 units IV Push regular insulin, administered with secondary RN, Saran. Per , recheck blood sugar in 3-4hrs 0339; blood sugar 366. Dr. Richard notified, per MD, administer 10 units humalog per sliding scale, as unscheduled dose and recheck blood sugar in 3 hrs; 0700 In addition, from stat BMP; increase in bun and creatinine noted, NS @50 started at 0040 (total of 500cc) Original Note: 2100; blood sugar 511, per sliding scale 10 units humalog administered and scheduled bedtime lantus [address] Richard notified via [employer], no additional insulin at this time per MD. Per , encourage po water and stat BMP. 2240; Lab called with critical glucose of 557, Dr. Richard notified, awaiting orders.
--- NOTE | 2021-07-18 23:47 | PM.EVENT ---
Event Note Date of Service: 07/18/21 Event Note: Hyperglycemia: FSG in 500s pt given Lispro 10u, and lantus 30U at 9:30Pm. stat BMP showed no DKA. Regular insulin 5u IV push x1 AGUSTIN on CKD: pt creatinine worsened to 2.8; Discontinued metformin, lisinopril; Reduced Lovenox to 30mg; Will defer gabapentin adjustment to Pharmacy. Gentle IV fluids- @50cc/hr total 500cc
[2021-07-18 23:58] LABS: Glucose, Whole Blood 512 mg/dL (60-115)
[2021-07-19] VITALS (9 sets, daily range): BP systolic 114–123; BP diastolic 43–58; PULSE 67–93; RESP 17–24; TEMP 36.4–36.6; O2SAT 95–97
[2021-07-19] MEDS: Insulin Regular, Human 100 UNIT/ML 3 ML VIAL IVPUSH (00:23)
[2021-07-19] MEDS: Enoxaparin Sodium 40 MG/0.4 ML SYRINGE 30 MG SUBCUT ×2 (00:30→23:36)
[2021-07-19] MEDS: 0.9 % Sodium Chloride Flush 3 ML SYRINGE IVFLUSH ×3 (00:30→23:41)
[2021-07-19] MEDS: 0.9 % Sodium Chloride 500 ML 50 ML IVCONT (00:41)
[2021-07-19] MEDS: methylPREDNISolone Sod Succ 40 MG/ML VIAL IVPUSH ×2 (03:32→08:40)
[2021-07-19 03:47] LABS: Glucose, Whole Blood 366 mg/dL (60-115)
[2021-07-19] MEDS: Insulin Lispro 100 UNIT/ML 3 ML VIAL SUBCUT ×4 (04:20→21:25)
[2021-07-19 06:52] LABS: Glucose, Whole Blood 299 mg/dL (60-115)
[2021-07-19 06:53] LABS: Anion Gap 11 (12-20); Blood Urea Nitrogen 54 mg/dL (9-16); Calcium 8.5 mg/dL (8.4-10.2); Carbon Dioxide 29 mmol/L (22-29); Chloride 100 mmol/L (96-108); Creatinine Clr Calc Pharmacy 22.4; Estimated Glomerular Filt Rate 20; Glucose Random 367 mg/dL (60-115); Potassium 4.7 mmol/L (3.3-5.1); Sodium 135 mmol/L (135-145)
[2021-07-19] MEDS: Fluticasone Propionate Nasal 16 GM SPRAY 1 SPRAY NOSTRIL-B (08:38)
[2021-07-19] MEDS: hydrOXYzine HCL 25 MG TABLET PO ×2 (08:40→21:24)
[2021-07-19] MEDS: amLODIPine Besylate 5 MG TABLET PO (08:40)
[2021-07-19] MEDS: buPROPion HCl XL 150 MG TAB.ER.24H PO (08:40)
[2021-07-19] MEDS: Gabapentin 300 MG CAPSULE PO (08:40)
[2021-07-19] MEDS: rOPINIRole HCL 2 MG TABLET PO ×2 (08:40→21:23)
--- NOTE | 2021-07-19 08:46 | PC.NURSE ---
Pt A&Ox3, Lungs diminished in the bases, no complaints of pain at this time. Pt states MD said she will be DC'd today, pt worried as her ride is in [place] and will have to clean out of the snow. Explained no DC orders yet, will not throw pt out, we will give her ride time to get here. Awaiting further orders. Will continue to monitor.
[2021-07-19] MEDS: Albuterol/Iprat 2.5/0.5MG 3 ML AMPUL.NEB INHALE ×4 (08:50→19:29)
--- NOTE | 2021-07-19 14:27 | MHC.CM.PN ---
Per Dr Mendoza, patient will be ready for discharge today. Physical therapy eval is ordered and pending due to falls. Patient has refused shelter in the past. [facility]aretenders aware of potential discharge today. Continue to monitor for d/c needs.
--- NOTE | 2021-07-19 15:19 | HO.PM.IMPN ---
Subjective Subjective Date of Service: 07/20/21 Interval History: f/u fall, covid that is assymptomatic, renal function worse Review of Systems Gen: no fever Resp: no sob, Physical Exam Vital Signs: Vital Signs: Last Vital Signs Temp 97.9 F 07/19/21 03:32 Pulse 93 07/19/21 14:40 Resp 20 07/19/21 14:40 BP 115/43 L 07/19/21 14:40 Pulse Ox 95 07/19/21 14:40 Oxygen Flow Rate 2 07/16/21 23:00 BMI result Body Mass Index 40.6 Objective Data Active Medications Acetaminophen (Acetaminophen 325 Mg Tablet) 650 mg PO Q6H PRN PRN Reason: Pain, Mild (Pain Scale 1-3) Albuterol Sulfate (Albuterol Sulfate (0.083%) 2.5 Mg/3 Ml Vial.Neb) 2.5 mg INHALE Q2H PRN PRN Reason: Shortness of Breath/Wheezing Albuterol Sulfate (Albuterol Sulfate 90 Mcg 8 Gm Inhaler) 2 puff INHALE Q4H PRN PRN Reason: shortness of breath or wheezing Albuterol/Ipratropium (Albuterol/Iprat 2.5/0.5mg 3 Ml Ampul.Neb) 3 ml INHALE RQ4H WHILE AWAKE [facility] Last Admin: 07/19/21 13:15 Dose: 3 ml Documented by: PAYAL Amlodipine Besylate (Amlodipine Besylate 5 Mg Tablet) 5 mg PO DAILY [facility]; Protocol Last Admin: 07/19/21 08:40 Dose: 5 mg Documented by: SAW Atorvastatin Calcium (Atorvastatin Calcium 80 Mg Tablet) 80 mg PO BEDTIME [facility] Last Admin: 07/18/21 21:39 Dose: 80 mg Documented by: FAWAD Bupropion HCl (Bupropion Hcl Xl 150 Mg Tab.Er.24h) 150 mg PO DAILY [facility] Last Admin: 07/19/21 08:40 Dose: 150 mg Documented by: SAW Dextrose (Dextrose 50 % 25 Gm/50 Ml Vial) 25 gm IVPUSH Q15M PRN; Protocol PRN Reason: per Hypoglycemia Standing Ord. Enoxaparin Sodium (Enoxaparin Sodium 40 Mg/0.4 Ml Syringe) 30 mg SUBCUT Q24H [facility] Last Admin: 07/19/21 00:30 Dose: 30 mg Documented by: FAWAD Fluticasone Propionate (Fluticasone Propionate Nasal 16 Gm [place]) 1 spray NOSTRIL-B DAILY [facility] Last Admin: 07/19/21 08:38 Dose: 1 spray Documented by: SAW Gabapentin (Gabapentin 300 Mg Capsule) 300 mg PO DAILY [facility] [place] Last Admin: 07/19/21 08:40 Dose: 300 mg Documented by: SAW Gabapentin (Gabapentin 300 Mg Capsule) 900 mg PO BEDTIME [facility] Last Admin: 07/18/21 21:40 Dose: 900 mg Documented by: FAWAD Glucose (Glucose Gel 15 Gm Gel..Gram.) 15 gm PO Q15M PRN; Protocol PRN Reason: per Hypoglycemia Standing Ord. Hydroxyzine HCl (Hydroxyzine Hcl 25 Mg Tablet) 25 mg PO BID [facility] Last Admin: 07/19/21 08:40 Dose: 25 mg Documented by: SAW Insulin Glargine (Insulin Glargine,Hum.Rec.Anlog 100 Unit/Ml 10 Ml Vial) 30 unit SUBCUT BEDTIME [facility] Last Admin: 07/18/21 21:39 Dose: 30 unit Documented by: FAWAD Insulin Human Lispro (Insulin Lispro 100 Unit/Ml 3 Ml Vial) 0 - 10 unit SUBCUT QIDAS [facility] [place]; Protocol Last Admin: 07/19/21 13:18 Dose: 2 unit Documented by: SAW Insulin Human Lispro (Insulin Lispro 100 Unit/Ml 3 Ml Vial) 10 unit SUBCUT QIDAS [facility] Last Admin: 07/19/21 12:36 Dose: Not Given Documented by: SAW Non-Admin Reason: Physician Held Med Melatonin (Melatonin 3 Mg Tablet) 6 mg PO BEDTIME PRN PRN Reason: Insomnia Montelukast Sodium (Montelukast Sodium 10 Mg Tablet) 10 mg PO BEDTIME [facility] Last Admin: 07/18/21 21:40 Dose: 10 mg Documented by: FAWAD Morphine Sulfate (Morphine Sulfate 4 Mg/Ml Cartridge) 1 mg IVPUSH Q4H PRN; Protocol PRN Reason: Pain, SOB Ropinirole HCl (Ropinirole Hcl 2 Mg Tablet) 2 mg PO BID [facility] Last Admin: 07/19/21 08:40 Dose: 2 mg Documented by: SAW Senna (Sennosides 8.6 Mg Tablet) 17.2 mg PO BEDTIME PRN PRN Reason: Constipation Sodium Chloride (0.9 % Sodium Chloride Flush 3 Ml Syringe) 3 ml IVFLUSH QSHIFT [facility] Last Admin: 07/19/21 08:41 Dose: Not Given Documented by: SAW Non-Admin Reason: IV Running Trazodone HCl (Trazodone Hcl 100 Mg Tablet) 250 mg PO BEDTIME [facility] Last Admin: 07/18/21 21:39 Dose: 250 mg Documented by: FAWAD Labs CBC & Chem 7: 07/17/21 06:58 07/20/21 07:54 Labs: Laboratory Results - last 24 hr 07/18/21 07/18/21 07/18/21 17:43 21:12 22:07 Anion Gap 15 Estim Creat Clear Calc 18.5 Estimated GFR 16 POC Glucose 428 H* 511 H* Random Glucose 557 H* Calcium 8.5 07/18/21 07/19/21 07/19/21 23:52 03:39 05:57 Anion Gap 11 L Estim Creat Clear Calc 22.4 Estimated GFR 20 POC Glucose 512 H* 366 H* Random Glucose 367 H* Calcium 8.5 07/19/21 06:46 Anion Gap Estim Creat Clear Calc Estimated GFR POC Glucose 299 H Random Glucose Calcium Microbiology Microbiology Results: Microbiology 07/17/21 06:58 Blood Culture - Preliminary Blood - Venous No growth after 48 hours. 07/17/21 00:57 Blood Culture - Preliminary Blood - Venous No growth after 48 hours. Assessment and Plan (1) COVID-19 virus infection: Status: Acute (2) Asthma exacerbation in COPD: Status: Acute (3) Fall: Status: Acute (4) Hyperglycemia: Status: Acute Assessment and Plan: 71-year-old female with a past medical history of hypertension, hyperlipidemia, diabetes, GERD, obesity, ALDO on CPAP, osteoarthritis, osteo chondroma left femur, COPD on 2 L of home oxygen; COVID-19 vaccinated; presented to the hospital today with a chief complaint of fall/SOB-> noted to have all in conditions Fall: Mechanical in nature.? CT head and lumbar spine showed no acute findings.? Patient reports back pain- chronic; denies any numbness tingling or focal weakness.? Pain control.? PT eval COVID-19 positive:?Assymptomatic, on baseline O2 at home COPD exacerbation:? Nebs and steroid AGUSTIN--pre renal on IVF, monitor Diabetes with hyperglycemia:?Hyperglycemia d/t steroid, continue lantus ssi, increase Lantus History of ALDO: Continue home CPAP at night For all other chronic conditions home medications will be continued DVT prophylaxis:? Lovenox Code status:? Full code Quality Stroke Does the patient have a stroke diagnosis?: No VTE Prior VTE?: No VTE Risk Level:: Medical - moderate - high VTE Device Contraindication: Treatment Not Indicated VTE Drug Contraindication: N/A - Med Ordered
--- NOTE | 2021-07-19 17:29 | PC.NURSE ---
pt currently resting comfortably in bed in semifowlers position, per case mgt pt d/c has been postponed until thursday pending renal labs. pt was under the impression that she was to be d/c this evening. pt and made aware of change. pt resps are = and nonlabored, pt in nsr on lead 2, pt in no distress
[2021-07-19 18:16] LABS: Glucose, Whole Blood 192 mg/dL (60-115)
[2021-07-19 21:05] LABS: Glucose, Whole Blood 496 mg/dL (60-115)
[2021-07-19] MEDS: traZODone HCL 100 MG TABLET 250 MG PO (21:23)
[2021-07-19] MEDS: Atorvastatin Calcium 80 MG TABLET PO (21:23)
[2021-07-19] MEDS: Gabapentin 300 MG CAPSULE 900 MG PO (21:24)
[2021-07-19] MEDS: Montelukast Sodium 10 MG TABLET PO (21:24)
[2021-07-19] MEDS: Melatonin 3 MG TABLET 6 MG PO (21:24)
[2021-07-19] MEDS: Insulin Glargine,Hum.rec.anlog 100 UNIT/ML 10 ML VIAL 30 UNIT SUBCUT (21:25)
--- NOTE | 2021-07-19 21:25 | PC.NURSE ---
Pt medicated per MAR Pt given 10 units inuslin lispro per sliding scale Will continue to monitor
[2021-07-20] VITALS (8 sets, daily range): BP systolic 102–138; BP diastolic 42–60; PULSE 82–99; RESP 17–30; TEMP 36.7–37; O2SAT 90–98
--- NOTE | 2021-07-20 00:05 | PC.NURSE ---
Pt BG at 1999 496. Pt covered with sliding scale lispro and humalog. Rechecked BG = 367 Dr. Richard made aware. Per Dr. Richard, cover patient with sliding scale. Per sliding scale, will give patient 10 units lispro
--- NOTE | 2021-07-20 00:15 | PC.NURSE ---
BG recheck = 365 Dr. Richard made aware. Per Dr. Richard, cover with sliding scale. Pt given another 10 units of insulin lispro. Pt tolerated well Will continue to monitor
[2021-07-20] MEDS: Insulin Lispro 100 UNIT/ML 3 ML VIAL 10 UNIT SUBCUT (00:27)
[2021-07-20 00:37] LABS: Glucose, Whole Blood 364 mg/dL (60-115)
--- NOTE | 2021-07-20 07:22 | PC.NURSE ---
07/19/21 1630 insulin not administered or documented by previous rn
[2021-07-20 07:46] LABS: Glucose, Whole Blood 101 mg/dL (60-115)
[2021-07-20] MEDS: buPROPion HCl XL 150 MG TAB.ER.24H PO (08:03)
[2021-07-20] MEDS: Fluticasone Propionate Nasal 16 GM SPRAY 1 SPRAY NOSTRIL-B (08:03)
[2021-07-20] MEDS: hydrOXYzine HCL 25 MG TABLET PO ×2 (08:03→21:01)
[2021-07-20] MEDS: amLODIPine Besylate 5 MG TABLET PO (08:03)
[2021-07-20] MEDS: Gabapentin 300 MG CAPSULE PO (08:03)
[2021-07-20] MEDS: rOPINIRole HCL 2 MG TABLET PO ×2 (08:03→21:02)
[2021-07-20] MEDS: 0.9 % Sodium Chloride Flush 3 ML SYRINGE IVFLUSH ×2 (08:04→17:20)
[2021-07-20] MEDS: Albuterol/Iprat 2.5/0.5MG 3 ML AMPUL.NEB INHALE ×4 (08:22→20:56)
[2021-07-20 08:31] LABS: Anion Gap 11 (12-20); Blood Urea Nitrogen 45 mg/dL (9-16); Calcium 8.6 mg/dL (8.4-10.2); Carbon Dioxide 29 mmol/L (22-29); Chloride 102 mmol/L (96-108); Creatinine Clr Calc Pharmacy 29.6; Estimated Glomerular Filt Rate 28; Glucose Random 100 mg/dL (60-115); Potassium 4.1 mmol/L (3.3-5.1); Sodium 138 mmol/L (135-145)
--- NOTE | 2021-07-20 11:27 | P.PNIM_ITS ---
Subjective Subjective Date of Service: 07/20/21 Interval History: f/u fall, covid that is assymptomatic, renal function worse Review of Systems Gen: no fever Resp: no sob, Physical Exam Vital Signs: Vital Signs: Last Vital Signs Temp 98.0 F 07/20/21 08:06 Pulse 82 07/20/21 08:23 Resp 17 07/20/21 08:23 BP 102/42 L 07/20/21 08:06 Pulse Ox 92 07/20/21 08:06 Oxygen Flow Rate 2 07/16/21 23:00 BMI result Body Mass Index 40.6 Const: Other: General: AO X 3, no acute distress Resp: CTA bilateral CVS: S1,S2,RRR GI: +BS, NT, no distention Skin: No rash Neuro: motor grossly intact Psych: appropriate affect Objective Data Active Medications Acetaminophen (Acetaminophen 325 Mg Tablet) 650 mg PO Q6H PRN PRN Reason: Pain, Mild (Pain Scale 1-3) Albuterol Sulfate (Albuterol Sulfate (0.083%) 2.5 Mg/3 Ml Vial.Neb) 2.5 mg INHALE Q2H PRN PRN Reason: Shortness of Breath/Wheezing Albuterol Sulfate (Albuterol Sulfate 90 Mcg 8 Gm Inhaler) 2 puff INHALE Q4H PRN PRN Reason: shortness of breath or wheezing Albuterol/Ipratropium (Albuterol/Iprat 2.5/0.5mg 3 Ml Ampul.Neb) 3 ml INHALE RQ4H WHILE AWAKE [facility] Last Admin: 07/20/21 08:22 Dose: 3 ml Documented by: PAYAL Amlodipine Besylate (Amlodipine Besylate 5 Mg Tablet) 5 mg PO DAILY [facility] [place]; Protocol Last Admin: 07/20/21 08:03 Dose: 5 mg Documented by: ESTHELA Atorvastatin Calcium (Atorvastatin Calcium 80 Mg Tablet) 80 mg PO BEDTIME [facility] [place] Last Admin: 07/19/21 21:23 Dose: 80 mg Documented by: MI Bupropion HCl (Bupropion Hcl Xl 150 Mg Tab.Er.24h) 150 mg PO DAILY [facility] [place] Last Admin: 07/20/21 08:03 Dose: 150 mg Documented by: ESTHELA Dextrose (Dextrose 50 % 25 Gm/50 Ml Vial) 25 gm IVPUSH Q15M PRN; Protocol PRN Reason: per Hypoglycemia Standing Ord. Enoxaparin Sodium (Enoxaparin Sodium 40 Mg/0.4 Ml Syringe) 30 mg SUBCUT Q24H [facility] [place] Last Admin: 07/19/21 23:36 Dose: 30 mg Documented by: MI Fluticasone Propionate (Fluticasone Propionate Nasal 16 Gm [place]) 1 spray NOSTRIL-B DAILY [facility] [place] Last Admin: 07/20/21 08:03 Dose: 1 spray Documented by: ESTHELA Gabapentin (Gabapentin 300 Mg Capsule) 300 mg PO DAILY [facility] [place] Last Admin: 07/20/21 08:03 Dose: 300 mg Documented by: ESTHELA Gabapentin (Gabapentin 300 Mg Capsule) 900 mg PO BEDTIME [facility] [place] Last Admin: 07/19/21 21:24 Dose: 900 mg Documented by: MI Glucose (Glucose Gel 15 Gm Gel..Gram.) 15 gm PO Q15M PRN; Protocol PRN Reason: per Hypoglycemia Standing Ord. Hydroxyzine HCl (Hydroxyzine Hcl 25 Mg Tablet) 25 mg PO BID [facility] [place] Last Admin: 07/20/21 08:03 Dose: 25 mg Documented by: ESTHELA Insulin Glargine (Insulin Glargine,Hum.Rec.Anlog 100 Unit/Ml 10 Ml Vial) 30 unit SUBCUT BEDTIME [facility] [place] Last Admin: 07/19/21 21:25 Dose: 30 unit Documented by: MI Insulin Human Lispro (Insulin Lispro 100 Unit/Ml 3 Ml Vial) 0 - 10 unit SUBCUT QIDACHS [facility] [place]; Protocol Last Admin: 07/20/21 07:45 Dose: Not Given Documented by: ESTHELA Non-Admin Reason: No Insulin Coverage Insulin Human Lispro (Insulin Lispro 100 Unit/Ml 3 Ml Vial) 10 unit SUBCUT QIDACHS [facility] [place] Last Admin: 07/20/21 07:45 Dose: Not Given Documented by: ESTHELA Non-Admin Reason: No Insulin Coverage Melatonin (Melatonin 3 Mg Tablet) 6 mg PO BEDTIME PRN PRN Reason: Insomnia Last Admin: 07/19/21 21:24 Dose: 6 mg Documented by: MI Montelukast Sodium (Montelukast Sodium 10 Mg Tablet) 10 mg PO BEDTIME [facility] [place] Last Admin: 07/19/21 21:24 Dose: 10 mg Documented by: MI Morphine Sulfate (Morphine Sulfate 4 Mg/Ml Cartridge) 1 mg IVPUSH Q4H PRN; Protocol PRN Reason: Pain, SOB Ropinirole HCl (Ropinirole Hcl 2 Mg Tablet) 2 mg PO BID [facility] [place] Last Admin: 07/20/21 08:03 Dose: 2 mg Documented by: ESTHELA Senna (Sennosides 8.6 Mg Tablet) 17.2 mg PO BEDTIME PRN PRN Reason: Constipation Sodium Chloride (0.9 % Sodium Chloride Flush 3 Ml Syringe) 3 ml IVFLUSH QSHIFT [facility] [place] Last Admin: 07/20/21 08:04 Dose: 3 ml Documented by: ESTHELA Trazodone HCl (Trazodone Hcl 100 Mg Tablet) 250 mg PO BEDTIME [facility] [place] Last Admin: 07/19/21 21:23 Dose: 250 mg Documented by: MI Labs CBC & Chem 7: 07/17/21 06:58 07/20/21 07:54 Labs: Laboratory Results - last 24 hr 07/19/21 07/19/21 07/19/21 12:08 20:54 23:37 Anion Gap Estim Creat Clear Calc Estimated GFR POC Glucose 192 H 496 H* 364 H* Random Glucose Calcium 07/20/21 07/20/21 07:38 07:54 Anion Gap 11 L Estim Creat Clear Calc 29.6 Estimated GFR 28 POC Glucose 101 Random Glucose 100 Calcium 8.6 Microbiology Microbiology Results: Microbiology 07/17/21 06:58 Blood Culture - Preliminary Blood - Venous No growth after 48 hours. Assessment and Plan (1) COVID-19 virus infection: Status: Acute (2) Asthma exacerbation in COPD: Status: Acute (3) Fall: Status: Acute (4) Hyperglycemia: Status: Acute Assessment and Plan: 71-year-old female with a past medical history of hypertension, hyperlipidemia, diabetes, GERD, obesity, ALDO on CPAP, osteoarthritis, osteo chondroma left femur, COPD on 2 L of home oxygen; COVID-19 vaccinated; presented to the hospital today with a chief complaint of fall/SOB-> noted to have all in conditions Fall: Mechanical in nature.? CT head and lumbar spine showed no acute findings.? Patient reports back pain- chronic; denies any numbness tingling or focal we akness.? Pain control.? PT eval COVID-19 positive:?Assymptomatic, on baseline O2 at home COPD exacerbation:? Nebs and steroid AGUSTIN--pre renal on IVF, monitor--better today Diabetes with hyperglycemia:?Hyperglycemia d/t steroid, continue lantus ssi, increase Lantus History of ALDO: Continue home CPAP at night For all other chronic conditions home medications will be continued DVT prophylaxis:? Lovenox Code status:? Full code Quality Stroke Does the patient have a stroke diagnosis?: No VTE Prior VTE?: No VTE Risk Level:: Medical - moderate - high VTE Device Contraindication: Treatment Not Indicated VTE Drug Contraindication: N/A - Med Ordered
[2021-07-20 11:55] LABS: Glucose, Whole Blood 127 mg/dL (60-115)
[2021-07-20] MEDS: guaiFEN/Codeine SF 200/20/10ML 10 ML LIQUID 5 ML PO ×2 (15:42→22:20)
[2021-07-20] MEDS: Acetaminophen 325 MG TABLET 650 MG PO (15:45)
[2021-07-20 16:48] LABS: Glucose, Whole Blood 256 mg/dL (60-115)
[2021-07-20] MEDS: Insulin Lispro 100 UNIT/ML 3 ML VIAL SUBCUT ×2 (18:07→22:21)
[2021-07-20 20:46] LABS: Glucose, Whole Blood 376 mg/dL (60-115)
[2021-07-20] MEDS: Insulin Glargine,Hum.rec.anlog 100 UNIT/ML 10 ML VIAL 30 UNIT SUBCUT (21:00)
[2021-07-20] MEDS: Gabapentin 300 MG CAPSULE 900 MG PO (21:01)
[2021-07-20] MEDS: Melatonin 3 MG TABLET 6 MG PO (21:01)
[2021-07-20] MEDS: Atorvastatin Calcium 80 MG TABLET PO (21:01)
[2021-07-20] MEDS: Montelukast Sodium 10 MG TABLET PO (21:02)
[2021-07-20] MEDS: traZODone HCL 100 MG TABLET 250 MG PO (21:02)
--- NOTE | 2021-07-20 22:40 | PC.NURSE ---
pts bedtime POC was 376. per protocol, pt to get 15u insulin and dr richard was notified. oked just the 15 u to be given and no other intervention. pyxis only allowed for set range order to be drawn from pyxis which was 10 unit, t/w notified MD Richard of range order maxing out at 10u even though sliding scale calls for 15u. Dr. Richard oked just 10U to be given. pt medicated per SEP with 10u of insulin Lispro
[2021-07-21] VITALS (8 sets, daily range): BP systolic 102–117; BP diastolic 48–63; PULSE 80–99; RESP 16–24; TEMP 36.7–37.5; O2SAT 94–97
[2021-07-21] MEDS: Enoxaparin Sodium 40 MG/0.4 ML SYRINGE 30 MG SUBCUT (00:17)
[2021-07-21] MEDS: Acetaminophen 325 MG TABLET 650 MG PO ×2 (01:24→08:34)
[2021-07-21 07:31] LABS: Glucose, Whole Blood 195 mg/dL (60-115)
[2021-07-21] MEDS: Insulin Lispro 100 UNIT/ML 3 ML VIAL SUBCUT ×3 (07:52→21:20)
[2021-07-21 08:33] LABS: Anion Gap 12 (12-20); Blood Urea Nitrogen 36 mg/dL (9-16); Calcium 8.9 mg/dL (8.4-10.2); Carbon Dioxide 35 mmol/L (22-29); Chloride 98 mmol/L (96-108); Creatinine Clr Calc Pharmacy 26.7; Estimated Glomerular Filt Rate 25; Glucose Random 179 mg/dL (60-115); Potassium 4.7 mmol/L (3.3-5.1); Sodium 140 mmol/L (135-145)
[2021-07-21] MEDS: guaiFEN/Codeine SF 200/20/10ML 10 ML LIQUID 5 ML PO ×2 (08:33→21:15)
[2021-07-21] MEDS: rOPINIRole HCL 2 MG TABLET PO ×2 (08:34→21:17)
[2021-07-21] MEDS: buPROPion HCl XL 150 MG TAB.ER.24H PO (08:34)
[2021-07-21] MEDS: hydrOXYzine HCL 25 MG TABLET PO ×2 (08:34→21:18)
[2021-07-21] MEDS: amLODIPine Besylate 5 MG TABLET PO (08:34)
[2021-07-21] MEDS: Gabapentin 300 MG CAPSULE PO (08:34)
[2021-07-21] MEDS: 0.9 % Sodium Chloride Flush 3 ML SYRINGE IVFLUSH (08:35)
--- NOTE | 2021-07-21 09:47 | PC.NURSE ---
IV in RAC infiltrated upon assessment. will place a new line
--- NOTE | 2021-07-21 10:39 | PC.NURSE ---
pt had a large BM this morning. OOB by herself, 1x assist to sit to commode and full assist to clean the pt. pts carolina and adalid changed
--- NOTE | 2021-07-21 10:48 | P.PNIM_ITS ---
Subjective Subjective Date of Service: 07/21/21 Interval History: f/u covid, copd and renal failure.. coughing more, no more sob thatn usual, renal function is getting worse Review of Systems Gen: no fever Resp: no sob, Physical Exam Vital Signs: Vital Signs: Last Vital Signs Temp 98.5 F 07/21/21 09:33 Pulse 87 07/21/21 09:33 Resp 22 H 07/21/21 09:33 BP 117/50 L 07/21/21 09:33 Pulse Ox 96 07/21/21 09:33 Oxygen Flow Rate 2 07/16/21 23:00 BMI result Body Mass Index 40.6 Const: Other: General: AO X 3, no acute distress Resp: CTA bilateral CVS: S1,S2,RRR GI: +BS, NT, no distention Skin: No rash Neuro: motor grossly intact Psych: appropriate affect Objective Data Active Medications Acetaminophen (Acetaminophen 325 Mg Tablet) 650 mg PO Q6H PRN PRN Reason: Pain, Mild (Pain Scale 1-3) Last Admin: 07/21/21 08:34 Dose: 650 mg Documented by: TOBY Albuterol Sulfate (Albuterol Sulfate (0.083%) 2.5 Mg/3 Ml Vial.Neb) 2.5 mg INHALE Q2H PRN PRN Reason: Shortness of Breath/Wheezing Albuterol Sulfate (Albuterol Sulfate 90 Mcg 8 Gm Inhaler) 2 puff INHALE Q4H PRN PRN Reason: shortness of breath or wheezing Albuterol/Ipratropium (Albuterol/Iprat 2.5/0.5mg 3 Ml Ampul.Neb) 3 ml INHALE RQ4H WHILE AWAKE [facility] Last Admin: 07/21/21 08:58 Dose: Not Given Documented by: NAEEM Non-Admin Reason: rt unavail Amlodipine Besylate (Amlodipine Besylate 5 Mg Tablet) 5 mg PO DAILY [facility]; Protocol Last Admin: 07/21/21 08:34 Dose: 5 mg Documented by: TOBY Atorvastatin Calcium (Atorvastatin Calcium 80 Mg Tablet) 80 mg PO BEDTIME [facility] Last Admin: 07/20/21 21:01 Dose: 80 mg Documented by: TOBY Benzonatate (Benzonatate 100 Mg Capsule) 100 mg PO TID PRN PRN Reason: Cough Bupropion HCl (Bupropion Hcl Xl 150 Mg Tab.Er.24h) 150 mg PO DAILY [facility] Last Admin: 07/21/21 08:34 Dose: 150 mg Documented by: TOBY Dextrose (Dextrose 50 % 25 Gm/50 Ml Vial) 25 gm IVPUSH Q15M PRN; Protocol PRN Reason: per Hypoglycemia Standing Ord. Enoxaparin Sodium (Enoxaparin Sodium 40 Mg/0.4 Ml Syringe) 30 mg SUBCUT Q24H [facility] Last Admin: 07/21/21 00:17 Dose: 30 mg Documented by: MCTMiguel Angel Fluticasone Propionate (Fluticasone Propionate Nasal 16 Gm [place]) 1 spray NOSTRIL-B DAILY [facility] Last Admin: 07/21/21 08:43 Dose: Not Given Documented by: TOBY Non-Admin Reason: Patient Refused Gabapentin (Gabapentin 300 Mg Capsule) 300 mg PO DAILY [facility] Last Admin: 07/21/21 08:34 Dose: 300 mg Documented by: TOBY Gabapentin (Gabapentin 300 Mg Capsule) 900 mg PO BEDTIME [facility] Last Admin: 07/20/21 21:01 Dose: 900 mg Documented by: TOBY Glucose (Glucose Gel 15 Gm Gel..Gram.) 15 gm PO Q15M PRN; Protocol PRN Reason: per Hypoglycemia Standing Ord. Guaifenesin/Codeine Phosphate (Guaifen/Codeine Sf 200/20/10ml 10 Ml Liquid) 5 ml PO Q6H PRN PRN Reason: Cough Last Admin: 07/21/21 08:33 Dose: 5 ml Documented by: TOBY Hydroxyzine HCl (Hydroxyzine Hcl 25 Mg Tablet) 25 mg PO BID [facility] Last Admin: 07/21/21 08:34 Dose: 25 mg Documented by: TOBY Sodium Chloride () 1,000 mls @ 80 mls/hr IVCONT .[id number] [facility] Insulin Glargine (Insulin Glargine,Hum.Rec.Anlog 100 Unit/Ml 10 Ml Vial) 30 unit SUBCUT BEDTIME [facility] Last Admin: 07/20/21 21:00 Dose: 30 unit Documented by: TOBY Insulin Human Lispro (Insulin Lispro 100 Unit/Ml 3 Ml Vial) 0 - 10 unit SUBCUT QIDACHS [facility]; Protocol Last Admin: 07/21/21 07:52 Dose: 4 unit Documented by: TOBY Melatonin (Melatonin 3 Mg Tablet) 6 mg PO BEDTIME PRN PRN Reason: Insomnia Last Admin: 07/20/21 21:01 Dose: 6 mg Documented by: TOBY Montelukast Sodium (Montelukast Sodium 10 Mg Tablet) 10 mg PO BEDTIME [facility] Last Admin: 07/20/21 21:02 Dose: 10 mg Documented by: TOBY Morphine Sulfate (Morphine Sulfate 4 Mg/Ml Cartridge) 1 mg IVPUSH Q4H PRN; Protocol PRN Reason: Pain, SOB Ropinirole HCl (Ropinirole Hcl 2 Mg Tablet) 2 mg PO BID [facility] Last Admin: 07/21/21 08:34 Dose: 2 mg Documented by: TOBY Senna (Sennosides 8.6 Mg Tablet) 17.2 mg PO BEDTIME PRN PRN Reason: Constipation Sodium Chloride (0.9 % Sodium Chloride Flush 3 Ml Syringe) 3 ml IVFLUSH QSHIFT [facility] Last Admin: 07/21/21 08:35 Dose: 3 ml Documented by: TOBY Trazodone HCl (Trazodone Hcl 100 Mg Tablet) 250 mg PO BEDTIME [facility] Last Admin: 07/20/21 21:02 Dose: 250 mg Documented by: TOBY Labs CBC & Chem 7: 07/17/21 06:58 07/21/21 07:46 Labs: Laboratory Results - last 24 hr 07/20/21 07/20/21 07/20/21 11:50 16:36 20:38 Anion Gap Estim Creat Clear Calc Estimated GFR POC Glucose 127 H 256 H 376 H* Random Glucose Calcium 07/21/21 07/21/21 07:20 07:46 Anion Gap 12 Estim Creat Clear Calc 26.7 Estimated GFR 25 POC Glucose 195 H Random Glucose 179 H Calcium 8.9 Assessment and Plan (1) COVID-19 virus infection: Status: Acute (2) Asthma exacerbation in COPD: Status: Acute (3) Fall: Status: Acute (4) Hyperglycemia: Status: Acute Assessment and Plan: 71-year-old female with a past medical history of hypertension, hyperlipidemia, diabetes, GERD, obesity, ALDO on CPAP, osteoarthritis, osteo chondroma left femur, COPD on 2 L of home oxygen; COVID-19 vaccinated; presented to the hospital today with a chief complaint of fall/SOB-> noted to have all in cond itions Fall: Mechanical in nature.? CT head and lumbar spine showed no acute findings.? Patient reports back pain- chronic; denies any numbness tingling or focal weakness.? Pain control.? PT eval COVID-19 positive:?now coughing, but no sob, on baseline home O2 COPD exacerbation:? Nebs and steroid AGUSTIN--pre renal, creatinine is worst today, Creatinine is worse today, get nephrology consult, restart IVF at 80 and hour Diabetes with hyperglycemia:?Hyperglycemia d/t steroid, continue lantus ssi, hyperglycemia is better History of ALDO: Continue home CPAP at night For all other chronic conditions home medications will be continued DVT prophylaxis:? Lovenox Code status:? Full code Quality Stroke Does the patient have a stroke diagnosis?: No VTE Prior VTE?: No VTE Risk Level:: Medical - moderate - high VTE Device Contraindication: Treatment Not Indicated VTE Drug Contraindication: N/A - Med Ordered
[2021-07-21] MEDS: Albuterol/Iprat 2.5/0.5MG 3 ML AMPUL.NEB INHALE ×3 (11:10→21:26)
[2021-07-21 13:02] LABS: Glucose, Whole Blood 147 mg/dL (60-115)
[2021-07-21] MEDS: Sodium Chloride 0.45 % 1,000 ML 80 ML IVCONT (13:17)
[2021-07-21] MEDS: Morphine Sulfate 4 MG/ML CARTRIDGE 1 MG IVPUSH (15:43)
--- NOTE | 2021-07-21 15:52 | P.CONNP_ITS ---
History of Present Illness Reason for Consult Consult date: 07/21/21 Reason for consult: AGUSTIN Chief Complaint Chief complaint: COPD exacerbation/COVID History of Present Illness Narrative: Ms. Mine Peacock is a 71-year-old female with past medical history of undiagnosed CKD stage II/IIIa (BL Cr 1.1-1.2mg/dL), hypertension, hyperlipidemia, diabetes, GERD, obesity, ALDO on CPAP, osteoarthritis, osteo chondroma left femur, COPD on 2 L of home oxygen who presented to hospital with symptomatic COVID and COPD exacerbation. Course now complicated by AGUSTIN on CKD along with uncontrolled hyperglycemia. U/A showing microhematuria Chest imaging going against any pulmonary edema. Review of Systems Review of Systems Gen: no fever Resp: no sob, PMFSH Past Medical History Medical History Allergic rhinitis Arthritis Constipation due to opioid therapy COPD (chronic obstructive pulmonary disease) CPAP (continuous positive airway pressure) dependence Diabetes Diabetes Elevated cholesterol GERD (gastroesophageal reflux disease) History of adrenal adenoma History of diverticulitis History of restless legs syndrome Hx SBO Hyperlipidemia Obesity (BMI 30-39.9) Obesity due to excess calories ALDO (obstructive sleep apnea) Osteoarthritis of left knee Osteochondroma of left femur Family History Family History Father HTN (hypertension) Diabetes mellitus Mother HTN (hypertension) Liver cancer Family history: reviewed and not pertinent Surgical History Surgical History H/O colonoscopy H/O excision of mass H/O exploratory laparotomy History of appendectomy History of arthroscopy of left knee History of cholecystectomy History of hysterectomy History of oophorectomy History of partial colectomy History of surgery Hx of cataract extraction Social History Social History 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: Family 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 Other:: ex Housing: House Are you a primary hearing care professional to a significant other at home: No Do you presently have visiting nurse or other home services: Yes Alcohol intake: unknown Patient Tobacco Use Status: Never used Tobacco Second Hand Smoke Exposure: Yes Use of substances other than those prescribed or required for medical reasons: Unknown Advance Directives: Yes Advance Directives on File: Yes Advance Directives Date on File: 07/08/21 service: No Current occupational status: unemployed Meds Allergies Allergy/AdvReac Type Severity Reaction Status Date / Time adhesive tape [ADHESIVE TAPE] Allergy Intermediate RASH Verified 06/26/21 10:38 trimethobenzamide Allergy Mild NAUSEA Verified 06/26/21 10:38 [From TIGAN] environmental Allergy Intermediate Nasal Uncoded 06/26/21 10:38 congestion Active Medications: Current Medications Acetaminophen (Acetaminophen 325 Mg Tablet) 650 mg PO Q6H PRN PRN Reason: Pain, Mild (Pain Scale 1-3) Last Admin: 07/21/21 08:34 Dose: 650 mg Documented by: Albuterol Sulfate (Albuterol Sulfate (0.083%) 2.5 Mg/3 Ml Vial.Neb) 2.5 mg INHALE Q2H PRN PRN Reason: Shortness of Breath/Wheezing Albuterol Sulfate (Albuterol Sulfate 90 Mcg 8 Gm Inhaler) 2 puff INHALE Q4H PRN PRN Reason: shortness of breath or wheezing Albuterol/Ipratropium (Albuterol/Iprat 2.5/0.5mg 3 Ml Ampul.Neb) 3 ml INHALE RQ4H WHILE AWAKE [facility] Last Admin: 07/21/21 15:21 Dose: 3 ml Documented by: Amlodipine Besylate (Amlodipine Besylate 5 Mg Tablet) 5 mg PO DAILY [facility]; Protocol Last Admin: 07/21/21 08:34 Dose: 5 mg Documented by: Atorvastatin Calcium (Atorvastatin Calcium 80 Mg Tablet) 80 mg PO BEDTIME [facility] Last Admin: 07/20/21 21:01 Dose: 80 mg Documented by: Benzonatate (Benzonatate 100 Mg Capsule) 100 mg PO TID PRN PRN Reason: Cough Bupropion HCl (Bupropion Hcl Xl 150 Mg Tab.Er.24h) 150 mg PO DAILY [facility] Last Admin: 07/21/21 08:34 Dose: 150 mg Documented by: Dextrose (Dextrose 50 % 25 Gm/50 Ml Vial) 25 gm IVPUSH Q15M PRN; Protocol PRN Reason: per Hypoglycemia Standing Ord. Enoxaparin Sodium (Enoxaparin Sodium 40 Mg/0.4 Ml Syringe) 30 mg SUBCUT Q24H [facility] Last Admin: 07/21/21 00:17 Dose: 30 mg Documented by: Fluticasone Propionate (Fluticasone Propionate Nasal 16 Gm [place]) 1 spray NOSTRIL-B DAILY [facility] Last Admin: 07/21/21 08:43 Dose: Not Given Documented by: Gabapentin (Gabapentin 300 Mg Capsule) 300 mg PO DAILY [facility] Last Admin: 07/21/21 08:34 Dose: 300 mg Documented by: Gabapentin (Gabapentin 300 Mg Capsule) 900 mg PO BEDTIME [facility] Last Admin: 07/20/21 21:01 Dose: 900 mg Documented by: Glucose (Glucose Gel 15 Gm Gel..Gram.) 15 gm PO Q15M PRN; Protocol PRN Reason: per Hypoglycemia Standing Ord. Guaifenesin/Codeine Phosphate (Guaifen/Codeine Sf 200/20/10ml 10 Ml Liquid) 5 ml PO Q6H PRN PRN Reason: Cough Last Admin: 07/21/21 08:33 Dose: 5 ml Documented by: Hydroxyzine HCl (Hydroxyzine Hcl 25 Mg Tablet) 25 mg PO BID [facility] Last Admin: 07/21/21 08:34 Dose: 25 mg Documented by: Sodium Chloride () 1,000 mls @ 80 mls/hr IVCONT .[id number] [facility] Last Admin: 07/21/21 13:17 Dose: 80 mls/hr Documented by: Insulin Glargine (Insulin Glargine,Hum.Rec.Anlog 100 Unit/Ml 10 Ml Vial) 30 unit SUBCUT BEDTIME [facility] Last Admin: 07/20/21 21:00 Dose: 30 unit Documented by: Insulin Human Lispro (Insulin Lispro 100 Unit/Ml 3 Ml Vial) 0 - 10 unit SUBCUT QIDACHS [facility]; Protocol Last Admin: 07/21/21 13:17 Dose: Not Given Documented by: Melatonin (Melatonin 3 Mg Tablet) 6 mg PO BEDTIME PRN PRN Reason: Insomnia Last Admin: 07/20/21 21:01 Dose: 6 mg Documented by: Montelukast Sodium (Montelukast Sodium 10 Mg Tablet) 10 mg PO BEDTIME [facility] Last Admin: 07/20/21 21:02 Dose: 10 mg Documented by: Morphine Sulfate (Morphine Sulfate 4 Mg/Ml Cartridge) 1 mg IVPUSH Q4H PRN; Protocol PRN Reason: Pain, SOB Last Admin: 07/21/21 15:43 Dose: 1 mg Documented by: Ropinirole HCl (Ropinirole Hcl 2 Mg Tablet) 2 mg PO BID [facility] Last Admin: 07/21/21 08:34 Dose: 2 mg Documented by: Senna (Sennosides 8.6 Mg Tablet) 17.2 mg PO BEDTIME PRN PRN Reason: Constipation Sodium Chloride (0.9 % Sodium Chloride Flush 3 Ml Syringe) 3 ml IVFLUSH QSHIFT [facility] Last Admin: 07/21/21 08:35 Dose: 3 ml Documented by: Trazodone HCl (Trazodone Hcl 100 Mg Tablet) 250 mg PO BEDTIME [facility] Last Admin: 07/20/21 21:02 Dose: 250 mg Documented by: Home Medications Medication Instructions Recorded Confirmed Last Taken Type bupropion HCl 150 mg 24 hr tablet, 150 mg PO DAILY 04/25/20 07/17/21 07/07/21 History extended release oxygen-air delivery systems #1 04/25/20 07/17/21 07/07/21 History trazodone 100 mg tablet 250 mg PO BEDTIME 04/25/20 07/17/21 07/06/21 History gabapentin 300 mg capsule 900 mg PO BEDTIME cap 05/13/21 07/17/21 07/06/21 History atorvastatin 80 mg tablet 80 mg PO BEDTIME 06/29/21 07/17/21 07/06/21 History fluticasone propionate 50 1 spray INTRANASAL DAILY 06/29/21 07/17/21 07/07/21 History mcg/actuation nasal spray,suspension gabapentin 300 mg capsule 300 mg PO DAILY 06/29/21 07/17/21 07/07/21 History hydroxyzine pamoate 25 mg capsule 1 cap PO BID 06/29/21 07/17/21 07/07/21 History metformin 500 mg tablet 500 mg PO DAILY 06/29/21 07/17/21 07/07/21 History lisinopril 5 mg tablet 1 tab PO DAILY 07/17/21 07/17/21 Unknown History ropinirole 2 mg tablet 2 mg PO BID 07/17/21 07/17/21 Unknown History Physical Exam Vital Signs: Last Vital Signs Temp 98.5 F 07/21/21 09:33 Pulse 95 07/21/21 15:21 Resp 20 07/21/21 15:21 BP 117/50 L 07/21/21 09:33 Pulse Ox 96 07/21/21 09:33 Oxygen Flow Rate 2 07/16/21 23:00 BMI result Body Mass Index 40.6 Const Other: General: AO X 3, no acute distress Resp: CTA bilateral CVS: S1,S2,RRR GI: +BS, NT, no distention Skin: No rash Neuro: motor grossly intact Psych: appropriate affect Results Lab Results Result Diagrams: 07/17/21 06:58 07/21/21 07:46 Lab results: Chemistry 07/18/21 07/19/21 07/20/21 22:07 05:57 07:54 Sodium 135 135 138 Potassium 4.4 4.7 4.1 Carbon Dioxide 27 29 29 BUN 54 H D 54 H 45 H Creatinine 2.85 H 2.36 H 1.79 H Calcium 8.5 8.5 8.6 07/21/21 07:46 Sodium 140 Potassium 4.7 Carbon Dioxide 35 H BUN 36 H Creatinine 1.98 H Calcium 8.9 Assessment and Plan (1) COVID-19 virus infection: Status: Acute (2) Asthma exacerbation in COPD: Status: Acute (3) Fall: Status: Acute (4) Hyperglycemia: Status: Acute (5) AGUSTIN (acute kidney injury): Status: Acute Ms. Mine Peacock is a 71-year-old female with past medical history of undiagnosed CKD stage II/IIIa (BL Cr 1.1-1.2mg/dL), hypertension, hyperlipidemia, diabetes, GERD, obesity, ALDO on CPAP, osteoarthritis, osteo chondroma left femur, COPD on 2 L of home oxygen who presented to hospital with symptomatic COVID and COPD exacerbation. Course now complicated by AGUSTIN on CKD along with uncontrolled hyperglycemia. 1. AGUSTIN on CKD BL Cr 1.0-1.1mg/dL Prtoeinuria on U/As MIcroscopic hematuria Cr rise from 06/26/2021 so ? Subacute kidney injury. CT chest at this time ?old granulomatous disease? Assessment: I hope this is all just pre-renal AGUSTIN with COVID. However with the hematuria and Cr rise since mid June I wonder if she has a GN. Plan: - Repeat U/A - Chec C3, C4, ANCA, SPEP, Immunfix, and Free light chains - check 1,25 vit D - IVF as yo uare for now - control hyperglycemia which causes hypovolemia by osmotic diuresis Procedures Date of Service Date of Service: 07/21/21
[2021-07-21 18:24] LABS: Glucose, Whole Blood 268 mg/dL (60-115)
[2021-07-21 20:14] LABS: Glucose, Whole Blood 235 mg/dL (60-115)
[2021-07-21] MEDS: Melatonin 3 MG TABLET 6 MG PO (21:17)
[2021-07-21] MEDS: traZODone HCL 100 MG TABLET 250 MG PO (21:17)
[2021-07-21] MEDS: Gabapentin 300 MG CAPSULE 900 MG PO (21:17)
[2021-07-21] MEDS: Montelukast Sodium 10 MG TABLET PO (21:18)
[2021-07-21] MEDS: Atorvastatin Calcium 80 MG TABLET PO (21:18)
[2021-07-21] MEDS: Insulin Glargine,Hum.rec.anlog 100 UNIT/ML 10 ML VIAL 30 UNIT SUBCUT (21:19)
--- NOTE | 2021-07-21 21:45 | PC.NURSE ---
Assumed care of pt Pt medicated per SEP Pt tolerated well Will continue to monitor
[2021-07-22] VITALS (10 sets, daily range): BP systolic 110–121; BP diastolic 45–68; PULSE 64–85; RESP 16–21; TEMP 36.2–37.2; O2SAT 90–98
[2021-07-22] MEDS: Sodium Chloride 0.45 % 1,000 ML 80 ML IVCONT ×2 (00:27→14:30)
[2021-07-22] MEDS: Enoxaparin Sodium 40 MG/0.4 ML SYRINGE 30 MG SUBCUT (01:03)
[2021-07-22] MEDS: ondansetron HCL 4 MG/2 ML VIAL IVPUSH (03:33)
[2021-07-22] MEDS: Acetaminophen 325 MG TABLET 650 MG PO ×2 (03:37→14:36)
[2021-07-22] MEDS: guaiFEN/Codeine SF 200/20/10ML 10 ML LIQUID 5 ML PO ×2 (03:38→14:36)
[2021-07-22 07:37] LABS: Glucose, Whole Blood 129 mg/dL (60-115)
[2021-07-22] MEDS: Albuterol/Iprat 2.5/0.5MG 3 ML AMPUL.NEB INHALE ×4 (08:26→21:19)
[2021-07-22] MEDS: hydrOXYzine HCL 25 MG TABLET PO ×2 (08:30→22:35)
[2021-07-22] MEDS: buPROPion HCl XL 150 MG TAB.ER.24H PO (08:30)
[2021-07-22] MEDS: amLODIPine Besylate 5 MG TABLET PO (08:30)
[2021-07-22] MEDS: Gabapentin 300 MG CAPSULE PO (08:31)
[2021-07-22] MEDS: 0.9 % Sodium Chloride Flush 3 ML SYRINGE IVFLUSH (08:31)
[2021-07-22] MEDS: rOPINIRole HCL 2 MG TABLET PO ×2 (08:31→22:34)
[2021-07-22 09:53] LABS: Anion Gap 11 (12-20); Blood Urea Nitrogen 32 mg/dL (9-16); Calcium 8.3 mg/dL (8.4-10.2); Carbon Dioxide 33 mmol/L (22-29); Chloride 98 mmol/L (96-108); Creatinine Clr Calc Pharmacy 27.3; Estimated Glomerular Filt Rate 25; Glucose Random 159 mg/dL (60-115); Potassium 4.2 mmol/L (3.3-5.1); Sodium 138 mmol/L (135-145)
--- NOTE | 2021-07-22 10:40 | P.PNNP_ITS ---
Subjective Subjective Date of Service: 07/26/21 Interval history: Events noted Physical Exam Vital Signs: Vital Signs: Last Vital Signs Temp 98.4 F 07/22/21 05:50 Pulse 70 07/22/21 08:27 Resp 16 07/22/21 08:27 BP 110/45 L 07/22/21 08:02 Pulse Ox 94 07/22/21 08:02 Oxygen Flow Rate 2 07/16/21 23:00 BMI result Body Mass Index 40.6 Const: Other: General: AO X 3, no acute distress Resp: CTA bilateral CVS: S1,S2,RRR GI: +BS, NT, no distention Skin: No rash Neuro: motor grossly intact Psych: appropriate affect Objective Data Labs CBC & Chem 7: 07/25/21 06:54 07/25/21 06:54 Labs: Laboratory Results - last 24 hr 07/21/21 07/21/21 07/21/21 12:55 18:02 20:01 Sodium Potassium Chloride Carbon Dioxide Anion Gap BUN Creatinine Estim Creat Clear Calc Estimated GFR POC Glucose 147 H 268 H 235 H Random Glucose Calcium 07/22/21 07/22/21 07:26 09:07 Sodium 138 Potassium 4.2 Chloride 98 Carbon Dioxide 33 H Anion Gap 11 L BUN 32 H Creatinine 1.94 H Estim Creat Clear Calc 27.3 Estimated GFR 25 POC Glucose 129 H Random Glucose 159 H Calcium 8.3 L D Microbiology Microbiology Results: Microbiology 07/17/21 06:58 Blood - Venous Blood Culture - Final No growth after 5 days. 07/17/21 00:57 Blood - Venous Blood Culture - Final No growth after 5 days. Procedures Date of Service Date of Service: 07/22/21 Assessment & Plan Assessment and plan (1) COVID-19 virus infection: Status: Acute (2) Asthma exacerbation in COPD: Status: Resolved (3) Fall: Status: Resolved (4) Hyperglycemia: Status: Resolved (5) AGUSTIN (acute kidney injury): Status: Acute Assessment and Plan: 71-year-old female with past medical history of undiagnosed CKD stage II/IIIa (BL Cr 1.1-1.2mg/dL), hypertension, hyperlipidemia, diabetes, GERD, obesity, ALDO on CPAP, osteoarthritis, osteo chondroma left femur, COPD on 2 L of home oxygen who presented to hospital with symptomatic COVID and COPD exacerbation. Course now complicated by AGUSTIN on CKD along with uncontrolled hyperglycemia. 1. AGUSTIN on CKD BL Cr 1.0-1.1mg/dL Prtoeinuria on U/As MIcroscopic hematuria Cr rise from 06/26/2021 so ? Subacute kidney injury. CT chest at this time ?old granulomatous disease? Assessment: I hope this is all just pre-renal AGUSTIN with COVID. However with the hematuria and Cr rise since mid June ? GN. Plan: - Urine protein creatinine ratio - Check C3, C4, ANCA, SPEP, Immunfix, and Free light chains - control hyperglycemia which causes hypovolemia by osmotic diuresis Time Spent With Patient Time: Total time spent is greater than 50% in coordination of care (as document ed) at patient's floor/unit and/or counseling patient: Time with patient: 15 - 24 minutes Progress Note: Quality Stroke Does the patient have a stroke diagnosis?: No
--- NOTE | 2021-07-22 11:04 | PC.NURSE ---
Pt A&ox3, no complaints of pain at this time. Medicated as per MAR orders, shields with clear yellow urine at this time. Assisted with T&P in bed. Will continue to monitor.
[2021-07-22 13:47] LABS: Glucose, Whole Blood 113 mg/dL (60-115)
[2021-07-22] MEDS: Benzonatate 100 MG CAPSULE PO (14:36)
--- NOTE | 2021-07-22 15:25 | HO.PM.IMPN ---
Subjective Subjective Date of Service: 07/23/21 Interval History: f/u on on covid, copd exacerbation, hypoxia, renal failure--she is feeling better, cough is better Review of Systems cough no fever Physical Exam Vital Signs: Vital Signs: Last Vital Signs Temp 98.4 F 07/22/21 05:50 Pulse 64 07/22/21 12:00 Resp 18 07/22/21 12:00 BP 110/45 L 07/22/21 08:02 Pulse Ox 94 07/22/21 08:02 Oxygen Flow Rate 2 07/16/21 23:00 BMI result Body Mass Index 40.6 Const: Other: General: AO X 3, no acute distress Resp: CTA bilateral CVS: S1,S2,RRR GI: +BS, NT, no distention Skin: No rash Neuro: motor grossly intact Psych: appropriate affect Objective Data Active Medications Acetaminophen (Acetaminophen 325 Mg Tablet) 650 mg PO Q6H PRN PRN Reason: Pain, Mild (Pain Scale 1-3) Last Admin: 07/22/21 14:36 Dose: 650 mg Documented by: SAW Albuterol Sulfate (Albuterol Sulfate (0.083%) 2.5 Mg/3 Ml Vial.Neb) 2.5 mg INHALE Q2H PRN PRN Reason: Shortness of Breath/Wheezing Albuterol Sulfate (Albuterol Sulfate 90 Mcg 8 Gm Inhaler) 2 puff INHALE Q4H PRN PRN Reason: shortness of breath or wheezing Albuterol/Ipratropium (Albuterol/Iprat 2.5/0.5mg 3 Ml Ampul.Neb) 3 ml INHALE RQ4H WHILE AWAKE [facility] Last Admin: 07/22/21 11:59 Dose: 3 ml Documented by: NAEEM Amlodipine Besylate (Amlodipine Besylate 5 Mg Tablet) 5 mg PO DAILY [facility]; Protocol Last Admin: 07/22/21 08:30 Dose: 5 mg Documented by: SAW Atorvastatin Calcium (Atorvastatin Calcium 80 Mg Tablet) 80 mg PO BEDTIME [facility] Last Admin: 07/21/21 21:18 Dose: 80 mg Documented by: BRENNEN Benzonatate (Benzonatate 100 Mg Capsule) 100 mg PO TID PRN PRN Reason: Cough Last Admin: 07/22/21 14:36 Dose: 100 mg Documented by: SAW Bupropion HCl (Bupropion Hcl Xl 150 Mg Tab.Er.24h) 150 mg PO DAILY [facility] Last Admin: 07/22/21 08:30 Dose: 150 mg Documented by: SAW Dextrose (Dextrose 50 % 25 Gm/50 Ml Vial) 25 gm IVPUSH Q15M PRN; Protocol PRN Reason: per Hypoglycemia Standing Ord. Enoxaparin Sodium (Enoxaparin Sodium 40 Mg/0.4 Ml Syringe) 30 mg SUBCUT Q24H [facility] Last Admin: 07/22/21 01:03 Dose: 30 mg Documented by: BRENNEN Fluticasone Propionate (Fluticasone Propionate Nasal 16 Gm [place]) 1 spray NOSTRIL-B DAILY [facility] Last Admin: 07/22/21 09:36 Dose: Not Given Documented by: SAW Non-Admin Reason: Patient Refused Gabapentin (Gabapentin 300 Mg Capsule) 300 mg PO DAILY [facility] Last Admin: 07/22/21 08:31 Dose: 300 mg Documented by: SAW Gabapentin (Gabapentin 300 Mg Capsule) 900 mg PO BEDTIME [facility] Last Admin: 07/21/21 21:17 Dose: 900 mg Documented by: BRENNEN Glucose (Glucose Gel 15 Gm Gel..Gram.) 15 gm PO Q15M PRN; Protocol PRN Reason: per Hypoglycemia Standing Ord. Guaifenesin/Codeine Phosphate (Guaifen/Codeine Sf 200/20/10ml 10 Ml Liquid) 5 ml PO Q6H PRN PRN Reason: Cough Last Admin: 07/22/21 14:36 Dose: 5 ml Documented by: SAW Hydroxyzine HCl (Hydroxyzine Hcl 25 Mg Tablet) 25 mg PO BID [facility] Last Admin: 07/22/21 08:30 Dose: 25 mg Documented by: SAW Sodium Chloride () 1,000 mls @ 80 mls/hr IVCONT .[id number] [facility] Last Admin: 07/22/21 14:30 Dose: 80 mls/hr Documented by: SAW Insulin Glargine (Insulin Glargine,Hum.Rec.Anlog 100 Unit/Ml 10 Ml Vial) 30 unit SUBCUT BEDTIME [facility] Last Admin: 07/21/21 21:19 Dose: 30 unit Documented by: BRENNEN Insulin Human Lispro (Insulin Lispro 100 Unit/Ml 3 Ml Vial) 0 - 10 unit SUBCUT QIDAS [facility]; Protocol Last Admin: 07/22/21 13:48 Dose: Not Given Documented by: SAW Non-Admin Reason: No Insulin Coverage Melatonin (Melatonin 3 Mg Tablet) 6 mg PO BEDTIME PRN PRN Reason: Insomnia Last Admin: 07/21/21 21:17 Dose: 6 mg Documented by: BRENNEN Montelukast Sodium (Montelukast Sodium 10 Mg Tablet) 10 mg PO BEDTIME [facility] Last Admin: 07/21/21 21:18 Dose: 10 mg Documented by: BRENNEN Ropinirole HCl (Ropinirole Hcl 2 Mg Tablet) 2 mg PO BID [facility] Last Admin: 07/22/21 08:31 Dose: 2 mg Documented by: SAW Senna (Sennosides 8.6 Mg Tablet) 17.2 mg PO BEDTIME PRN PRN Reason: Constipation Sodium Chloride (0.9 % Sodium Chloride Flush 3 Ml Syringe) 3 ml IVFLUSH QSHIFT [facility] Last Admin: 07/22/21 08:31 Dose: 3 ml Documented by: SAW Trazodone HCl (Trazodone Hcl 100 Mg Tablet) 250 mg PO BEDTIME [facility] Last Admin: 07/21/21 21:17 Dose: 250 mg Documented by: BRENNEN Labs CBC & Chem 7: 07/17/21 06:58 07/23/21 07:52 Labs: Laboratory Results - last 24 hr 07/21/21 07/21/21 07/22/21 18:02 20:01 07:26 Anion Gap Estim Creat Clear Calc Estimated GFR POC Glucose 268 H 235 H 129 H Random Glucose Calcium 07/22/21 07/22/21 09:07 13:35 Anion Gap 11 L Estim Creat Clear Calc 27.3 Estimated GFR 25 POC Glucose 113 Random Glucose 159 H Calcium 8.3 L D Microbiology Microbiology Results: Microbiology 07/17/21 06:58 Blood Culture - Final Blood - Venous No growth after 5 days. 07/17/21 00:57 Blood Culture - Final Blood - Venous No growth after 5 days. Assessment and Plan (1) COVID-19 virus infection: Status: Acute (2) Asthma exacerbation in COPD: Status: Resolved (3) Fall: Status: Resolved (4) Hyperglycemia: Status: Resolved Assessment and Plan: 71-year-old female with a past medical history of hypertension, hyperlipidemia, diabetes, GERD, obesity, ALDO on CPAP, osteoarthritis, osteo chondroma left femur, COPD on 2 L of home oxygen; COVID-19 vaccinated; presented to the hospital today with a chief complaint of fall/SOB-> noted to have all in conditions Fall: Mechanical in nature.? CT head and lumbar spine showed no acute findings.? Patient reports back pain- chronic; denies any numbness tingling or focal weakness.? Pain control.? PT eval COVID-19 positive:?now coughing, but no sob, on baseline home O2, added steroid for copd COPD exacerbation:? Nebs and steroid AGUSTIN on CKD--pre renal, creatinine is worst today, Creatinine is better, probably at baseline, dc IVF Diabetes with hyperglycemia:?Hyperglycemia d/t steroid, continue insulin, steroid is been reduced History of ALDO: Continue home CPAP at night For all other chronic conditions home medications will be continued DVT prophylaxis:? Lovenox Code status:? Full code PT eval Quality Stroke Does the patient have a stroke diagnosis?: No VTE Prior VTE?: No VTE Risk Level:: Medical - moderate - high VTE Device Contraindication: Treatment Not Indicated VTE Drug Contraindication: N/A - Med Ordered
[2021-07-22] MEDS: methylPREDNISolone Sod Succ 40 MG/ML VIAL 30 MG IVPUSH (17:01)
[2021-07-22] MEDS: Insulin Lispro 100 UNIT/ML 3 ML VIAL SUBCUT ×2 (17:02→22:39)
[2021-07-22 17:17] LABS: Glucose, Whole Blood 213 mg/dL (60-115)
--- NOTE | 2021-07-22 21:00 | PC.NURSE ---
patient had a partial bed bath ,bedding was change ,patient in good spirits ,blood sugar 408 rn aware .
[2021-07-22 21:37] LABS: Glucose, Whole Blood 408 mg/dL (60-115)
[2021-07-22] MEDS: Atorvastatin Calcium 80 MG TABLET PO (22:35)
[2021-07-22] MEDS: Montelukast Sodium 10 MG TABLET PO (22:35)
[2021-07-22] MEDS: Melatonin 3 MG TABLET 6 MG PO (22:36)
[2021-07-22] MEDS: traZODone HCL 100 MG TABLET 250 MG PO (22:36)
[2021-07-22] MEDS: Gabapentin 300 MG CAPSULE 900 MG PO (22:37)
[2021-07-22] MEDS: Insulin Glargine,Hum.rec.anlog 100 UNIT/ML 10 ML VIAL 30 UNIT SUBCUT (22:39)
[2021-07-22] MEDS: Lidocaine 4 % Patch ADH..PATCH 1 PATCH TRANSDERMA (22:54)
--- NOTE | 2021-07-22 22:59 | PC.NURSE ---
delayed entry- Assumed care of pt at 1900. Pt resting in bed, in NAD, awake and alert, resps even and non-labored, attached to cardiac nurse practitioner. Medicated per SEP. Expressing frustration regarding lack of inpt bed, also states food trays have been incorrect. Offered verbal reassurance and therapeutic communication. Call light at hand, lights dimmed for comfort, pt able to reposition self.
[2021-07-23] VITALS (11 sets, daily range): BP systolic 103–125; BP diastolic 43–60; PULSE 67–90; RESP 13–24; TEMP 36.2–37.3; O2SAT 90–97
[2021-07-23] MEDS: Enoxaparin Sodium 40 MG/0.4 ML SYRINGE 30 MG SUBCUT (00:35)
[2021-07-23] MEDS: methylPREDNISolone Sod Succ 40 MG/ML VIAL 30 MG IVPUSH ×2 (00:36→09:06)
[2021-07-23] MEDS: Sodium Chloride 0.45 % 1,000 ML 80 ML IVCONT ×2 (01:49→13:35)
[2021-07-23] MEDS: Benzonatate 100 MG CAPSULE PO ×2 (02:53→15:56)
[2021-07-23] MEDS: guaiFEN/Codeine SF 200/20/10ML 10 ML LIQUID 5 ML PO ×2 (02:53→17:58)
[2021-07-23] MEDS: Acetaminophen 325 MG TABLET 650 MG PO ×2 (02:53→17:58)
--- NOTE | 2021-07-23 06:33 | PC.NURSE ---
Report called to jo RN. Pt to floor on hospital bed, transported in stable condition w/ all belongings, attached to portable quality assurance monitor, 3.5L O2 via [place]
[2021-07-23 07:25] LABS: Glucose, Whole Blood 331 mg/dL (60-115)
[2021-07-23] MEDS: Albuterol/Iprat 2.5/0.5MG 3 ML AMPUL.NEB INHALE ×2 (07:31→21:11)
[2021-07-23 08:51] LABS: Glucose Random 384 mg/dL (60-115)
[2021-07-23 08:52] LABS: Anion Gap 13 (12-20); Blood Urea Nitrogen 38 mg/dL (9-16); Calcium 8.1 mg/dL (8.4-10.2); Carbon Dioxide 28 mmol/L (22-29); Chloride 99 mmol/L (96-108); Creatinine Clr Calc Pharmacy 27.3; Estimated Glomerular Filt Rate 25; Potassium 5.1 mmol/L (3.3-5.1); Sodium 135 mmol/L (135-145)
[2021-07-23] MEDS: Insulin Lispro 100 UNIT/ML 3 ML VIAL SUBCUT ×5 (09:05→20:18)
[2021-07-23] MEDS: buPROPion HCl XL 150 MG TAB.ER.24H PO (09:06)
[2021-07-23] MEDS: rOPINIRole HCL 2 MG TABLET PO ×2 (09:06→20:17)
[2021-07-23] MEDS: Gabapentin 300 MG CAPSULE PO (09:06)
[2021-07-23] MEDS: hydrOXYzine HCL 25 MG TABLET PO ×2 (09:06→20:17)
[2021-07-23] MEDS: amLODIPine Besylate 5 MG TABLET PO (09:06)
--- NOTE | 2021-07-23 11:14 | P.PNNP_ITS ---
Subjective Subjective Date of Service: 07/26/21 Interval history: Events noted Physical Exam Vital Signs: Vital Signs: Last Vital Signs Temp 97.2 F 07/23/21 07:40 Pulse 72 07/23/21 09:44 Resp 24 H 07/23/21 07:40 BP 122/51 L 07/23/21 09:44 Pulse Ox 97 07/23/21 06:56 Oxygen Flow Rate 2 07/16/21 23:00 BMI result Body Mass Index 40.6 Const: Other: General: AO X 3, no acute distress Resp: CTA bilateral CVS: S1,S2,RRR GI: +BS, NT, no distention Skin: No rash Neuro: motor grossly intact Psych: appropriate affect Objective Data Labs CBC & Chem 7: 07/25/21 06:54 07/25/21 06:54 Labs: Laboratory Results - last 24 hr 07/22/21 07/22/21 07/22/21 13:35 16:45 20:54 Sodium Potassium Chloride Carbon Dioxide Anion Gap BUN Creatinine Estim Creat Clear Calc Estimated GFR POC Glucose 113 213 H 408 H* Random Glucose Calcium 07/23/21 07/23/21 07:17 07:52 Sodium 135 Potassium 5.1 D Chloride 99 Carbon Dioxide 28 Anion Gap 13 BUN 38 H Creatinine 1.94 H Estim Creat Clear Calc 27.3 Estimated GFR 25 POC Glucose 331 H Random Glucose 384 H* Calcium 8.1 L Microbiology Microbiology Results: Microbiology 07/17/21 06:58 Blood - Venous Blood Culture - Final No growth after 5 days. 07/17/21 00:57 Blood - Venous Blood Culture - Final No growth after 5 days. Procedures Date of Service Date of Service: 07/23/21 Assessment & Plan Assessment and plan (1) COVID-19 virus infection: Status: Acute (2) Asthma exacerbation in COPD: Status: Resolved (3) Fall: Status: Resolved (4) Hyperglycemia: Status: Resolved (5) AGUSTIN (acute kidney injury): Status: Acute Assessment and Plan: 71-year-old female with past medical history of undiagnosed CKD stage II/IIIa (BL Cr 1.1-1.2mg/dL), hypertension, hyperlipidemia, diabetes, GERD, obesity, ALDO on CPAP, osteoarthritis, osteo chondroma left femur, COPD on 2 L of home oxygen who presented to hospital with symptomatic COVID and COPD exacerbation. Course now complicated by AGUSTIN on CKD along with uncontrolled hyperglycemia. 1. AGUSTIN on CKD BL Cr 1.0-1.1mg/dL Proteinuria on U/As MIcroscopic hematuria Cr rise from 06/26/2021 so ? Subacute kidney injury. CT chest at this time ?old granulomatous disease? Assessment: ? pre-renal AGUSTIN with COVID. However with the hematuria and Cr rise since mid June ? GN. No change in creatinine today Plan: - Urine protein creatinine ratio - Check C3, C4, ANCA, SPEP, Immunfix, and Free light chains - control hyperglycemia which causes hypovolemia by osmotic diuresis Time Spent With Patient Time: Total time spent is greater than 50% in coordination of care (as docu mented) at patient's floor/unit and/or counseling patient: Time with patient: 15 - 24 minutes Progress Note: Quality Stroke Does the patient have a stroke diagnosis?: No
[2021-07-23 11:25] LABS: Glucose, Whole Blood 320 mg/dL (60-115)
--- NOTE | 2021-07-23 14:32 | MHC.SLORD ---
Speech Language Pathology Order Status: Sent secure text to (Dr. Mendoza) re Speech eval/consult ordered for this PT on 07/23. stated that consult/eval not needed at this time. D/C of Speech order.
[2021-07-23 16:08] LABS: Glucose, Whole Blood 392 mg/dL (60-115)
[2021-07-23 20:00] LABS: Glucose, Whole Blood 436 mg/dL (60-115)
[2021-07-23] MEDS: Montelukast Sodium 10 MG TABLET PO (20:17)
[2021-07-23] MEDS: Gabapentin 300 MG CAPSULE 900 MG PO (20:17)
[2021-07-23] MEDS: traZODone HCL 100 MG TABLET 250 MG PO (20:17)
[2021-07-23] MEDS: Atorvastatin Calcium 80 MG TABLET PO (20:17)
[2021-07-23] MEDS: 0.9 % Sodium Chloride Flush 3 ML SYRINGE IVFLUSH (20:18)
[2021-07-23] MEDS: Insulin Glargine,Hum.rec.anlog 100 UNIT/ML 10 ML VIAL 30 UNIT SUBCUT (20:18)
[2021-07-24] VITALS (7 sets, daily range): BP systolic 100–136; BP diastolic 46–62; PULSE 67–81; RESP 18–20; TEMP 36.4–36.9; O2SAT 94–99
[2021-07-24] MEDS: guaiFEN/Codeine SF 200/20/10ML 10 ML LIQUID 5 ML PO ×2 (01:06→14:44)
[2021-07-24] MEDS: Enoxaparin Sodium 40 MG/0.4 ML SYRINGE 30 MG SUBCUT ×2 (01:06→23:11)
[2021-07-24] MEDS: Sodium Chloride 0.45 % 1,000 ML 80 ML IVCONT (02:22)
[2021-07-24 06:42] LABS: Anion Gap 9 (12-20); Blood Urea Nitrogen 38 mg/dL (9-16); Carbon Dioxide 30 mmol/L (22-29); Chloride 105 mmol/L (96-108); Creatinine Clr Calc Pharmacy 28.6; Estimated Glomerular Filt Rate 27; Glucose Random 195 mg/dL (60-115); Potassium 4.6 mmol/L (3.3-5.1); Sodium 139 mmol/L (135-145)
[2021-07-24 07:56] LABS: Glucose, Whole Blood 154 mg/dL (60-115)
[2021-07-24] MEDS: Insulin Lispro 100 UNIT/ML 3 ML VIAL SUBCUT ×4 (08:20→21:39)
[2021-07-24] MEDS: hydrOXYzine HCL 25 MG TABLET PO ×2 (08:22→21:37)
[2021-07-24] MEDS: buPROPion HCl XL 150 MG TAB.ER.24H PO (08:22)
[2021-07-24] MEDS: Gabapentin 300 MG CAPSULE PO (08:22)
[2021-07-24] MEDS: rOPINIRole HCL 2 MG TABLET PO ×2 (08:23→21:38)
[2021-07-24] MEDS: amLODIPine Besylate 5 MG TABLET PO (08:23)
[2021-07-24] MEDS: Lidocaine 4 % Patch ADH..PATCH 1 PATCH TRANSDERMA (08:24)
--- NOTE | 2021-07-24 11:04 | PM.PNNEP ---
Subjective Subjective Date of Service: 07/26/21 Interval history: Events noted Physical Exam Vital Signs: Vital Signs: Last Vital Signs Temp 97.7 F 07/24/21 07:59 Pulse 67 07/24/21 09:59 Resp 20 07/24/21 07:59 BP 100/57 L 07/24/21 09:59 Pulse Ox 97 07/24/21 09:59 Oxygen Flow Rate 2 07/16/21 23:00 BMI result Body Mass Index 40.6 Const: Other: General: AO X 3, no acute distress Resp: CTA bilateral CVS: S1,S2,RRR GI: +BS, NT, no distention Skin: No rash Neuro: motor grossly intact Psych: appropriate affect Objective Data Labs CBC & Chem 7: 07/25/21 06:54 07/25/21 06:54 Labs: Laboratory Results - last 24 hr 07/23/21 07/23/21 07/23/21 11:19 16:04 19:56 Sodium Potassium Chloride Carbon Dioxide Anion Gap BUN Creatinine Estim Creat Clear Calc Estimated GFR POC Glucose 320 H 392 H* 436 H* Random Glucose Calcium 07/24/21 07/24/21 06:04 07:42 Sodium 139 Potassium 4.6 Chloride 105 Carbon Dioxide 30 H Anion Gap 9 L BUN 38 H Creatinine 1.85 H Estim Creat Clear Calc 28.6 Estimated GFR 27 POC Glucose 154 H Random Glucose 195 H Calcium 8.0 L Microbiology Microbiology Results: Microbiology 07/17/21 06:58 Blood - Venous Blood Culture - Final No growth after 5 days. 07/17/21 00:57 Blood - Venous Blood Culture - Final No growth after 5 days. Procedures Date of Service Date of Service: 07/24/21 Assessment & Plan Assessment and plan (1) COVID-19 virus infection: Status: Acute (2) Asthma exacerbation in COPD: Status: Resolved (3) Fall: Status: Resolved (4) Hyperglycemia: Status: Resolved (5) AGUSTIN (acute kidney injury): Status: Acute Assessment and Plan: 71-year-old female with past medical history of undiagnosed CKD stage II/IIIa (BL Cr 1.1-1.2mg/dL), hypertension, hyperlipidemia, diabetes, GERD, obesity, ALDO on CPAP, osteoarthritis, osteo chondroma left femur, COPD on 2 L of home oxygen who presented to hospital with symptomatic COVID and COPD exacerbation. Course now complicated by AGUSTIN on CKD along with uncontrolled hyperglycemia. 1. AGUSTIN on CKD BL Cr 1.0-1.1mg/dL Proteinuria on U/As MIcroscopic hematuria Cr rise from 06/26/2021 so ? Subacute kidney injury. CT chest at this time ?old granulomatous disease? ? pre-renal AGUSTIN with COVID. However with the hematuria and Cr rise since mid June ? GN. creatinine marginally beter Plan: - Urine protein creatinine ratio - Check C3, C4, ANCA, SPEP, Immunfix, and Free light chains - control hyperglycemia which causes hypovolemia by osmotic diuresis Time Spent With Patient Time: Total time spent is greater than 50% in coordination of care (as documented) at patient's floor/unit and/or counseling patient: Time with patient: 15 - 24 minutes Progress Note: Quality Stroke Does the patient have a stroke diagnosis?: No
[2021-07-24 11:29] LABS: Glucose, Whole Blood 185 mg/dL (60-115)
--- NOTE | 2021-07-24 15:13 | P.PNIM_ITS ---
Subjective Subjective Date of Service: 07/24/21 Interval History: no acute issues overnight. Breathing slowly improving Review of Systems denies chest pain Admits to shortness of breath with minimal exertion Denies nausea vomiting diarrhea Physical Exam Vital Signs: Vital Signs: Last Vital Signs Temp 97.8 F 07/24/21 11:53 Pulse 74 07/24/21 11:53 Resp 18 07/24/21 11:53 BP 113/62 07/24/21 11:53 Pulse Ox 99 07/24/21 11:53 Oxygen Flow Rate 2 07/16/21 23:00 BMI result Body Mass Index 40.6 Const: Other: no acute distress Resp: Other: clear to auscultation bilaterally no rales rho Cardio: Other: no S4; positive S1-S2; no S3 murmurs rubs or gallops GI: Other: soft nontender nondistended with normoactive bowel sounds Extrem: Other: no edema bilateral Objective Data Active Medications Acetaminophen (Acetaminophen 325 Mg Tablet) 650 mg PO Q6H PRN PRN Reason: Pain, Mild (Pain Scale 1-3) Last Admin: 07/23/21 17:58 Dose: 650 mg Documented by: PONCE Albuterol Sulfate (Albuterol Sulfate 90 Mcg 8 Gm Inhaler) 2 puff INHALE Q4H PRN PRN Reason: shortness of breath or wheezing Amlodipine Besylate (Amlodipine Besylate 5 Mg Tablet) 5 mg PO DAILY [facility]; Protocol Last Admin: 07/24/21 08:23 Dose: 5 mg Documented by: FELICIA Atorvastatin Calcium (Atorvastatin Calcium 80 Mg Tablet) 80 mg PO BEDTIME [facility] Last Admin: 07/23/21 20:17 Dose: 80 mg Documented by: HUNTER Benzonatate (Benzonatate 100 Mg Capsule) 100 mg PO TID PRN PRN Reason: Cough Last Admin: 07/23/21 15:56 Dose: 100 mg Documented by: PONCE Bupropion HCl (Bupropion Hcl Xl 150 Mg Tab.Er.24h) 150 mg PO DAILY [facility] Last Admin: 07/24/21 08:22 Dose: 150 mg Documented by: FELICIA Dextrose (Dextrose 50 % 25 Gm/50 Ml Vial) 25 gm IVPUSH Q15M PRN; Protocol PRN Reason: per Hypoglycemia Standing Ord. Enoxaparin Sodium (Enoxaparin Sodium 40 Mg/0.4 Ml Syringe) 30 mg SUBCUT Q24H [facility] Last Admin: 07/24/21 01:06 Dose: 30 mg Documented by: HUNTER Fluticasone Propionate (Fluticasone Propionate Nasal 16 Gm [place]) 1 spray NOSTRIL-B DAILY [facility] Last Admin: 07/23/21 11:06 Dose: Not Given Documented by: PONCE Non-Admin Reason: Patient Refused Gabapentin (Gabapentin 300 Mg Capsule) 300 mg PO DAILY [facility] Last Admin: 07/24/21 08:22 Dose: 300 mg Documented by: FELICIA Gabapentin (Gabapentin 300 Mg Capsule) 900 mg PO BEDTIME [facility] Last Admin: 07/23/21 20:17 Dose: 900 mg Documented by: HUNTER Glucose (Glucose Gel 15 Gm Gel..Gram.) 15 gm PO Q15M PRN; Protocol PRN Reason: per Hypoglycemia Standing Ord. Guaifenesin/Codeine Phosphate (Guaifen/Codeine Sf 200/20/10ml 10 Ml Liquid) 5 ml PO Q6H PRN PRN Reason: Cough Last Admin: 07/24/21 14:44 Dose: 5 ml Documented by: FELICIA Hydroxyzine HCl (Hydroxyzine Hcl 25 Mg Tablet) 25 mg PO BID [facility] Last Admin: 07/24/21 08:22 Dose: 25 mg Documented by: FELICIA Insulin Glargine (Insulin Glargine,Hum.Rec.Anlog 100 Unit/Ml 10 Ml Vial) 30 unit SUBCUT BEDTIME [facility] Last Admin: 07/23/21 20:18 Dose: 30 unit Documented by: HUNTER Insulin Human Lispro (Insulin Lispro 100 Unit/Ml 3 Ml Vial) 0 - 10 unit SUBCUT QIDACHS [facility]; Protocol Last Admin: 07/24/21 12:19 Dose: 4 unit Documented by: FELICIA Lidocaine (Lidocaine 4 % Patch Adh..Patch) 1 patch TRANSDERMA DAILY [facility]; Protocol Last Admin: 07/24/21 08:24 Dose: 1 patch Documented by: FELICIA Melatonin (Melatonin 3 Mg Tablet) 6 mg PO BEDTIME PRN PRN Reason: Insomnia Last Admin: 07/22/21 22:36 Dose: 6 mg Documented by: EDMUNDO Montelukast Sodium (Montelukast Sodium 10 Mg Tablet) 10 mg PO BEDTIME [facility] Last Admin: 07/23/21 20:17 Dose: 10 mg Documented by: HUNTER Ropinirole HCl (Ropinirole Hcl 2 Mg Tablet) 2 mg PO BID [facility] Last Admin: 07/24/21 08:23 Dose: 2 mg Documented by: FELICIA Senna (Sennosides 8.6 Mg Tablet) 17.2 mg PO BEDTIME PRN PRN Reason: Constipation Sodium Chloride (0.9 % Sodium Chloride Flush 3 Ml Syringe) 3 ml IVFLUSH QSHIFT [facility] Last Admin: 07/24/21 08:27 Dose: Not Given Documented by: FELICIA Non-Admin Reason: IV Running Trazodone HCl (Trazodone Hcl 100 Mg Tablet) 250 mg PO BEDTIME [facility] Last Admin: 07/23/21 20:17 Dose: 250 mg Documented by: HUNTER Labs CBC & Chem 7: 07/17/21 06:58 07/24/21 06:04 Labs: Laboratory Results - last 24 hr 07/16/21 07/17/21 07/18/21 23:59 06:58 22:07 Anion Gap Creatinine 2.01 H 2.14 H 2.85 H Estim Creat Clear Calc Estimated GFR POC Glucose Random Glucose Calcium 07/19/21 07/20/21 07/21/21 05:57 07:54 07:46 Anion Gap Creatinine 2.36 H 1.79 H 1.98 H Estim Creat Clear Calc Estimated GFR POC Glucose Random Glucose Calcium 07/22/21 07/23/21 07/23/21 09:07 07:52 16:04 Anion Gap Creatinine 1.94 H 1.94 H Estim Creat Clear Calc Estimated GFR POC Glucose 392 H* Random Glucose Calcium 07/23/21 07/24/21 07/24/21 19:56 06:04 07:42 Anion Gap 9 L Creatinine 1.85 H Estim Creat Clear Calc 28.6 Estimated GFR 27 POC Glucose 436 H* 154 H Random Glucose 195 H Calcium 8.0 L 07/24/21 11:14 Anion Gap Creatinine Estim Creat Clear Calc Estimated GFR POC Glucose 185 H Random Glucose Calcium Assessment and Plan (1) AGUSTIN (acute kidney injury): Status: Acute (2) COVID-19 virus infection: Status: Acute (3) Diabetes 1.5, managed as type 1: Status: Acute Assessment and Plan: 71-year-old female with a past medical history of hypertension, hyperlipidemia, diabetes, GERD, obesity, ALDO on CPAP, osteoarthritis, osteo chondroma left femur, COPD on 2 L of home oxygen; COVID-19 vaccinated; presented to the hospital today with a chief complaint of fall/SOB-> noted to have all in conditions 1.COVID-19 Back to baseline O2....steroids as ordered(COPD) Continue Nebs 2.AGUSTIN on CKD Slowly improving...appreciate Renal input Follow renals/divalents 3.DMII Continue Sliding scale as ordered Adjust as indicated History of ALDO: Continue home CPAP at night DVT prophylaxis:? Lovenox Code status:? Full code PT eval Quality Stroke Does the patient have a stroke diagnosis?: No VTE Prior VTE?: No VTE Risk Level:: Medical - moderate - high VTE Device Contraindication: Treatment Not Indicated VTE Drug Contraindication: N/A - Med Ordered
[2021-07-24 16:36] LABS: Glucose, Whole Blood 198 mg/dL (60-115)
[2021-07-24] MEDS: 0.9 % Sodium Chloride Flush 3 ML SYRINGE IVFLUSH ×2 (17:16→21:38)
[2021-07-24 20:13] LABS: Glucose, Whole Blood 261 mg/dL (60-115)
[2021-07-24] MEDS: Gabapentin 300 MG CAPSULE 900 MG PO (21:37)
[2021-07-24] MEDS: Montelukast Sodium 10 MG TABLET PO (21:37)
[2021-07-24] MEDS: Atorvastatin Calcium 80 MG TABLET PO (21:38)
[2021-07-24] MEDS: Melatonin 3 MG TABLET 6 MG PO (21:38)
[2021-07-24] MEDS: Insulin Glargine,Hum.rec.anlog 100 UNIT/ML 10 ML VIAL 30 UNIT SUBCUT (21:38)
[2021-07-24] MEDS: traZODone HCL 100 MG TABLET 250 MG PO (21:38)
[2021-07-24] MEDS: Acetaminophen 325 MG TABLET 650 MG PO (23:11)
[2021-07-25 03:28] VITALS: BP 115/53; PULSE 77; RESP 19; TEMP 36.7; O2SAT 95
[2021-07-25 07:40] VITALS: BP 131/71; PULSE 89; RESP 18; TEMP 36.4; O2SAT 95
[2021-07-25 07:43] LABS: Hematocrit 33.4 % (37.0-47.0); Hemoglobin 10.1 g/dl (12.0-16.0); Mean Corpuscular HGB Conc 30.2 g/dl (31.0-35.0); Mean Corpuscular Hemoglobin 28.6 pg (27.0-33.0); Mean Corpuscular Volume 94.6 fL (80.0-98.0); Platelet Count 187 X10*3/uL (160-400); Red Blood Count 3.53 X10*6/uL (4.20-5.50); Red Cell Distribution Width 13.4 % (11.0-16.0); White Blood Count 8.5 X10*3/uL (4.8-10.8)
[2021-07-25 07:47] LABS: Anion Gap 11 (12-20); Blood Urea Nitrogen 41 mg/dL (9-16); Calcium 8.1 mg/dL (8.4-10.2); Carbon Dioxide 27 mmol/L (22-29); Chloride 104 mmol/L (96-108); Creatinine Clr Calc Pharmacy 30.8; Estimated Glomerular Filt Rate 29; Glucose Random 163 mg/dL (60-115); Potassium 4.3 mmol/L (3.3-5.1); Sodium 138 mmol/L (135-145)
[2021-07-25 07:51] LABS: Glucose, Whole Blood 133 mg/dL (60-115)
[2021-07-25 08:39] LABS: Band Neutrophils Percent 3 % (3-5); Eosinophils Absolute Manual 0.5 X10*3/uL (0.0-0.4); Eosinophils Percent Manual 6 % (0-4); Lymphocytes Absolute Manual 2.6 X10*3/uL (1.2-4.9); Lymphocytes Percent Manual 31 % (20-40); Metamyelocytes Absolute 0.4 X10*3/uL; Metamyelocytes Percent 5 %; Neutrophils Absolute Manual 4.9 X10*3/uL (2.0-8.3); Neutrophils Percent Manual 55 % (45-73); RBC Morphology NOTED
[2021-07-25 08:40] LABS: Hypochromasia 1+ (5-14) /OIF; Platelet Estimate NORMAL (NORMAL); Platelet Morphology Comment NORMAL; Schistocytes 1+ (0-2) /OIF
[2021-07-25 08:41] LABS: Toxic Vacuolation PRESENT
[2021-07-25] MEDS: Gabapentin 300 MG CAPSULE PO (09:02)
[2021-07-25] MEDS: amLODIPine Besylate 5 MG TABLET PO (09:02)
[2021-07-25] MEDS: hydrOXYzine HCL 25 MG TABLET PO (09:02)
[2021-07-25] MEDS: 0.9 % Sodium Chloride Flush 3 ML SYRINGE IVFLUSH (09:02)
[2021-07-25] MEDS: buPROPion HCl XL 150 MG TAB.ER.24H PO (09:02)
[2021-07-25] MEDS: rOPINIRole HCL 2 MG TABLET PO (09:02)
[2021-07-25] MEDS: Lidocaine 4 % Patch ADH..PATCH 1 PATCH TRANSDERMA (09:03)
[2021-07-25 09:48] VITALS: PULSE 102; PULSE 79; PULSE 80; O2SAT 90; O2SAT 92
--- NOTE | 2021-07-25 10:39 | P.PNNP_ITS ---
Subjective Subjective Date of Service: 07/26/21 Interval history: Events noted Physical Exam Vital Signs: Vital Signs: Last Vital Signs Temp 97.5 F 07/25/21 07:40 Pulse 89 07/25/21 07:40 Resp 18 07/25/21 07:40 BP 131/71 07/25/21 07:40 Pulse Ox 95 07/25/21 07:40 Oxygen Flow Rate 2 07/16/21 23:00 BMI result Body Mass Index 40.6 Const: Other: General: AO X 3, no acute distress Resp: CTA bilateral CVS: S1,S2,RRR GI: +BS, NT, no distention Skin: No rash Neuro: motor grossly intact Psych: appropriate affect Objective Data Labs CBC & Chem 7: 07/25/21 06:54 07/25/21 06:54 Labs: Laboratory Results - last 24 hr 07/24/21 07/24/21 07/24/21 11:14 16:12 19:41 WBC RBC Hgb Hct MCV MCH MCHC RDW Plt Count MPV Immature Gran % (Auto) Neut % (Auto) Lymph % (Auto) [place] % (Auto) Eos % (Auto) Baso % (Auto) Lymph # (Auto) [place] # (Auto) Eos # (Auto) Baso # (Auto) Abs Immat Gran (auto) Absolute Neuts (auto) Absolute Nucleated RBC Nucleated RBC % (auto) Neutrophils % (Manual) Band Neutrophils % Lymphocytes % (Manual) Eosinophils % (Manual) Metamyelocytes % Abs Neuts (Manual) Lymphocytes # (Manual) Eosinophils # (Manual) Metamyelocytes # Toxic Vacuolation Platelet Estimate Plt Morphology Comment RBC Morphology Hypochromasia Schistocytes Sodium Potassium Chloride Carbon Dioxide Anion Gap BUN Creatinine Estim Creat Clear Calc Estimated GFR POC Glucose 185 H 198 H 261 H Random Glucose Calcium 07/25/21 07/25/21 07/25/21 06:54 06:54 07:41 WBC 8.5 RBC 3.53 L Hgb 10.1 L Hct 33.4 L MCV 94.6 MCH 28.6 MCHC 30.2 L RDW 13.4 Plt Count 187 MPV 12.0 Immature Gran % (Auto) Cancelled Neut % (Auto) Cancelled Lymph % (Auto) Cancelled [place] % (Auto) Cancelled Eos % (Auto) Cancelled Baso % (Auto) Cancelled Lymph # (Auto) Cancelled [place] # (Auto) Cancelled Eos # (Auto) Cancelled Baso # (Auto) Cancelled Abs Immat Gran (auto) Cancelled Absolute Neuts (auto) Cancelled Absolute Nucleated RBC 0.000 Nucleated RBC % (auto) 0.0 Neutrophils % (Manual) 55 Band Neutrophils % 3 Lymphocytes % (Manual) 31 Eosinophils % (Manual) 6 H Metamyelocytes % 5 Abs Neuts (Manual) 4.9 Lymphocytes # (Manual) 2.6 Eosinophils # (Manual) 0.5 H Metamyelocytes # 0.4 Toxic Vacuolation PRESENT Platelet Estimate NORMAL Plt Morphology Comment NORMAL RBC Morphology NOTED Hypochromasia 1+ (5-14) Schistocytes 1+ (0-2) Sodium 138 Potassium 4.3 Chloride 104 Carbon Dioxide 27 Anion Gap 11 L BUN 41 H Creatinine 1.72 H Estim Creat Clear Calc 30.8 Estimated GFR 29 POC Glucose 133 H Random Glucose 163 H Calcium 8.1 L Microbiology Microbiology Results: Microbiology 07/17/21 06:58 Blood - Venous Blood Culture - Final No growth after 5 days. 07/17/21 00:57 Blood - Venous Blood Culture - Final No growth after 5 days. Procedures Date of Service Date of Service: 07/25/21 Assessment & Plan Assessment and plan (1) COVID-19 virus infection: Status: Acute (2) Asthma exacerbation in COPD: Status: Resolved (3) Fall: Status: Resolved (4) Hyperglycemia: Status: Resolved (5) AGUSTIN (acute kidney injury): Status: Acute Assessment and Plan: 71-year-old female with past medical history of undiagnosed CKD stage II/IIIa (BL Cr 1.1-1.2mg/dL), hypertension, hyperlipidemia, diabetes, GERD, obesity, ALDO on CPAP, osteoarthritis, osteo chondroma left femur, COPD on 2 L of home oxygen who presented to hospital with symptomatic COVID and COPD exacerbation. Course now complicated by AGUSTIN on CKD along with uncontrolled hyperglycemia. 1. AGUSTIN on CKD BL Cr 1.0-1.1mg/dL Proteinuria on U/As MIcroscopic hematuria Cr rise from 06/26/2021 so ? Subacute kidney injury. CT chest at this time ?old granulomatous disease? ? pre-renal AGUSTIN with COVID. However with the hematuria and Cr rise since mid June ? GN. creatinine marginally beter Plan: - Urine protein creatinine ratio - Check C3, C4, ANCA, SPEP, Immunfix, and Free light chains - can be done as outpatient DC planning Time Spent With Patient Time: Total time spent is greater than 50% in coordination of care (as documented) at patient's floor/unit and/or counseling patient: Time with patient: 15 - 24 minutes Progress Note: Quality Stroke Does the patient have a stroke diagnosis?: No
[2021-07-25 10:59] VITALS: BP 139/54; PULSE 94; RESP 19; TEMP 36.4; O2SAT 93
[2021-07-25 11:38] LABS: Glucose, Whole Blood 467 mg/dL (60-115)
--- NOTE | 2021-07-25 11:42 | P.DS_ITS ---
DS: Providers Provider Date of Service: 07/25/21 Date of admission: 07/17/21 01:31 Primary care physician: Unknown Physician Consults: 07/17/21 01:36 Consult to Infectious Diseases Routine Consulting Provider: Beverley Friend Reason for consultation: covid positive 07/21/21 10:45 Consult to Nephrology Routine Consulting Provider: Mekhi Tolliver Reason for consultation: AGUSTIN that is not improving Has provider been notified: No DS: Diagnosis Discharge Diagnosis (1) COVID-19 virus infection: Status: Acute (2) Asthma exacerbation in COPD: Status: Resolved (3) Fall: Status: Resolved (4) Hyperglycemia: Status: Resolved (5) AGUSTIN (acute kidney injury): Status: Acute DS: Summary Hospital Course Hospital Course: 71-year-old female with a past medical history of hypertension, hyperlipidemia, diabetes, GERD, obesity, ALDO on CPAP, osteoarthritis, osteo chondroma left femur, COPD on 2 L of home oxygen; COVID-19 vaccinated; presented to the hospital today with a chief complaint of fall/SOB- Hospital course patient admitted to the floor and seen in consultation by Renal. Workup in place and per Renal can be continued as an outpatient. Renal function slowly returned back to baseline. Patient recovered from COVID with steroids and supplemental O2 and is now at her baseline O2. Sugars were adjusted secondary to steroids. At this point time she has been cleared for return home on previous oxygen settings and can follow up with her PCP Time Spent with Patient Time attestation: Total time spent providing and/or coordinating discharge services: Discharge coordination time: Greater than 30 minutes Quality: Stroke Does the patient have a stroke diagnosis?: No Physical Exam Vital Signs: Vital Signs: Last Vital Signs Temp 97.5 F 07/25/21 10:59 Pulse 94 07/25/21 10:59 Resp 19 07/25/21 10:59 BP 139/54 L 07/25/21 10:59 Pulse Ox 93 07/25/21 10:59 Oxygen Flow Rate 2 07/16/21 23:00 BMI result Body Mass Index 40.6 Const: Other: no acute distress Resp: Other: clear to auscultation bilaterally no rales rho Cardio: Other: no S4; positive S1-S2; no S3 murmurs rubs or gallops GI: Other: soft nontender nondistended with normoactive bowel sounds Extrem: Other: no edema bilateral DS: Data Data Completed and Pending Completed studies during hospitalization [Text1]: Procedures Replacement of Left Knee Joint with Synthetic Substitute, Uncemented, Open Approach (05/28/20) Labs on day of discharge: Laboratory Results - last 24 hr 07/24/21 07/24/21 07/25/21 16:12 19:41 06:54 WBC RBC Hgb Hct MCV MCH MCHC RDW Plt Count MPV Immature Gran % (Auto) Neut % (Auto) Lymph % (Auto) [place] % (Auto) Eos % (Auto) Baso % (Auto) Lymph # (Auto) [place] # (Auto) Eos # (Auto) Baso # (Auto) Abs Immat Gran (auto) Absolute Neuts (auto) Absolute Nucleated RBC Nucleated RBC % (auto) Neutrophils % (Manual) Band Neutrophils % Lymphocytes % (Manual) Eosinophils % (Manual) Metamyelocytes % Abs Neuts (Manual) Lymphocytes # (Manual) Eosinophils # (Manual) Metamyelocytes # Toxic Vacuolation Platelet Estimate Plt Morphology Comment RBC Morphology Hypochromasia Schistocytes Sodium 138 Potassium 4.3 Chloride 104 Carbon Dioxide 27 Anion Gap 11 L BUN 41 H Creatinine 1.72 H Estim Creat Clear Calc 30.8 Estimated GFR 29 POC Glucose 198 H 261 H Random Glucose 163 H Calcium 8.1 L 07/25/21 07/25/21 07/25/21 06:54 07:41 11:22 WBC 8.5 RBC 3.53 L Hgb 10.1 L Hct 33.4 L MCV 94.6 MCH 28.6 MCHC 30.2 L RDW 13.4 Plt Count 187 MPV 12.0 Immature Gran % (Auto) Cancelled Neut % (Auto) Cancelled Lymph % (Auto) Cancelled [place] % (Auto) Cancelled Eos % (Auto) Cancelled Baso % (Auto) Cancelled Lymph # (Auto) Cancelled [place] # (Auto) Cancelled Eos # (Auto) Cancelled Baso # (Auto) Cancelled Abs Immat Gran (auto) Cancelled Absolute Neuts (auto) Cancelled Absolute Nucleated RBC 0.000 Nucleated RBC % (auto) 0.0 Neutrophils % (Manual) 55 Band Neutrophils % 3 Lymphocytes % (Manual) 31 Eosinophils % (Manual) 6 H Metamyelocytes % 5 Abs Neuts (Manual) 4.9 Lymphocytes # (Manual) 2.6 Eosinophils # (Manual) 0.5 H Metamyelocytes # 0.4 Toxic Vacuolation PRESENT Platelet Estimate NORMAL Plt Morphology Comment NORMAL RBC Morphology NOTED Hypochromasia 1+ (5-14) Schistocytes 1+ (0-2) Sodium Potassium Chloride Carbon Dioxide Anion Gap BUN Creatinine Estim Creat Clear Calc Estimated GFR POC Glucose 133 H 467 H* Random Glucose Calcium Discharge Plan Discharge Anticipated Discharge Date/Time: 07/19/21 14:21 Patient Disposition: Home Health Service Discharge Diagnosis: COPD ex, covid 19 fall, Referrals: [facility] [Outside] - 1 Week Physician,Unknown J [Primary Care Provider] - 1 Week Discharge Medications: No Action montelukast 10 mg tablet 10 mg PO BEDTIME 90 Days Qty: 90 RF: 0 (DME) lancets 28 gauge misc See Rx Instructions ea topical TID Qty: 100 RF: 3 (DME) pen needle, diabetic 31 gauge x 3/16 needle See Rx Instructions ea subcut TID Qty: 100 RF: 1 (DME) Depend Underwear For Women S-M Misc See Rx Instructions .ROUTE .MEDSUPPLY Qty: 64 RF: 6 (DME) AeroEclipse II Nebulizer Misc See Rx Instructions .ROUTE .MEDSUPPLY Qty: 1 RF: 0 hydroxyzine pamoate 25 mg capsule 1 cap PO BID RF: 0 fluticasone propionate 50 mcg/actuation spray,suspension 1 spray intranasal DAILY RF: 0 gabapentin 300 mg capsule 300 mg PO DAILY RF: 0 metformin 500 mg tablet 500 mg PO DAILY RF: 0 atorvastatin 80 mg tablet 80 mg PO BEDTIME RF: 0 amlodipine [Norvasc] 5 mg tablet 5 mg PO DAILY 30 Days Qty: 30 RF: 0 ropinirole 2 mg tablet 2 mg PO BID RF: 0 lisinopril 5 mg tablet 1 tab PO DAILY RF: 0 gabapentin 300 mg capsule 900 mg PO BEDTIME RF: 0 trazodone 100 mg tablet 250 mg PO BEDTIME RF: 0 bupropion HCl 150 mg tablet extended release 24 hr 150 mg PO DAILY RF: 0 (DME) oxygen-air delivery systems Device See Rx Instructions .ROUTE .MEDSUPPLY Qty: 1 RF: 0 albuterol sulfate [ProAir HFA] 90 mcg/actuation HFA aerosol inhaler 2 puff inhalation Q4-6H PRN (Reason: shortness of breath or wheezing) 30 Days Qty: 8.5 RF: 2 Discharge Orders: Discharge Order (Routine); Ordered 07/25/21 Ordered By: Nicolas Pavon Diet: advance to usual diet Activity on Discharge: As tolerated Stand Alone Forms: Patient Portal Discharge page Care Plan Goals: Full recovery from covid and fall Health Concerns: continue Plan of Treatment: continue using your inhalers as before, follow up with your Doctor in a week, you declined rehab Assessment: As above
--- NOTE | 2021-07-25 11:52 | MHC.CM.PN ---
IMM 07/25/21 Female 71 DX Covid+ She is discharged today. [facility] will provide home care services. The patient has arranged for transportation home. Pts spouse will provide transportation and he will bring home oxygen supply as well.
[2021-07-25] MEDS: Insulin Lispro 100 UNIT/ML 3 ML VIAL SUBCUT (11:55)
[2021-07-25 15:39] VITALS: BP 123/64; PULSE 89; RESP 18; TEMP 37.1; O2SAT 97
== END 2021-07-25 16:05 | disposition home health service (06) | DRG 178 ==
LOC: HO.ED 07-17 01:25 → HO.EDOVER 07-17 01:39 → HO.IMC 07-23 05:36
PROVIDERS: Internal Medicine; Admitting Provider Hospitalist; Emergency Provider Emergency Medicine; PCP Internal Medicine; Visit Provider Hospitalist
DX: U07.1 COVID-19 (principal); J44.1 Chronic obstructive pulmonary disease with (acute) exacerbation; J45.901 Unspecified asthma with (acute) exacerbation; I47.2 Ventricular tachycardia; Z68.41 Body mass index [BMI] 40.0-44.9, adult; N17.9 Acute kidney failure, unspecified; E11.65 Type 2 diabetes mellitus with hyperglycemia; E78.5 Hyperlipidemia, unspecified; E66.01 Morbid (severe) obesity due to excess calories; G89.29 Other chronic pain; N18.31 Chronic kidney disease, stage 3a; E11.22 Type 2 diabetes mellitus with diabetic chronic kidney disease; K21.9 Gastro-esophageal reflux disease without esophagitis; G47.33 Obstructive sleep apnea (adult) (pediatric); Z99.81 Dependence on supplemental oxygen; Z79.51 Long term (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 inhaled steroids; Z79.84 Long term (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 oral hypoglycemic drugs; Z79.899 Other long term (current) drug therapy
CPT/HCPCS: 0241U; 36415; 70450; 71045; 72100; 80048; 80076; 81001; 82947; 83605; 83690; 83735; 83880; 85007; 85025; 85027; 87040; 93005; 94640; 96365; 96366; 96375; 97110; 97161; 97530; 99285; C1758; J1650; J1956; J2270; J2405; J2920; J2930; J3475

== ENCOUNTER 2021-07-22 00:58 | Outpatient (REF) | payer MEDICARE, MEDICAID, SELFPAY | END 2021-07-22 00:59 | disposition home or self-care (01) | LOC: HO.MMNH1L 00:58 | PROVIDERS: Visit Provider Family Medicine | DX: Z13.89 Encounter for screening for other disorder (principal) ==

== ENCOUNTER 2021-08-08 13:30 | Outpatient (REF) | payer MEDICARE, MEDICAID, SELFPAY ==
--- NOTE | ~2021-08-08 | XR_ITS ---
EXAMINATION: XR CHEST CLINICAL INFORMATION: Shortness of breath COMPARISON: Previous chest x-rays most recent 07/17/2021 TECHNIQUE: 2 views of the chest were obtained. FINDINGS: The cardiac and mediastinal contours are stable. There is slight elevation of the right hemidiaphragm. There is question of atelectasis or small infiltrate at the lung bases. There is no pleural effusion or pneumothorax. There are degenerative changes of the spine. XR/XR chest 2V IMPRESSION: Question atelectasis or small infiltrates at the lung bases.
== END 2021-08-08 13:31 | disposition home or self-care (01) ==
LOC: HO.HMGCX 13:30
PROVIDERS: Visit Provider Internal Medicine
DX: R06.02 Shortness of breath (principal)
CPT/HCPCS: 71046

== ENCOUNTER 2021-08-12 09:07 | Inpatient (IN) | payer MEDICARE, MEDICAID, SELFPAY ==
[2021-08-12] VITALS (9 sets, daily range): BP systolic 112–190; BP diastolic 57–80; PULSE 84–104; RESP 16–20; TEMP 36.4–36.9; O2SAT 88–99; BMI 32.6
--- NOTE | ~2021-08-12 | XR_ITS ---
EXAMINATION: XR CHEST CLINICAL INFORMATION: SOB COMPARISON: Chest 08/08/2021 TECHNIQUE: 2 views of the chest were obtained. FINDINGS: The lungs are well-expanded and clear of acute pneumonic process. There is patchy opacity in both lung bases question atelectasis or infiltrate, similar to previous study. The heart size and pulmonary vascularity is normal. Mild extra scoliosis with moderate spondylosis dorsal spine. XR/XR chest 2V IMPRESSION: Patchy opacity in both lung bases likely atelectasis or infiltrate. No change from previous study 08/08/2021
--- NOTE | 2021-08-12 09:33 | ECG_ITS ---
Test Reason : CHF Blood Pressure : / mmHG Vent. Rate : 093 BPM Atrial Rate : 093 BPM P-R Int : 156 ms QRS Dur : 082 ms QT Int : 368 ms P-R-T Axes : 053 018 020 degrees QTc Int : 457 ms Normal sinus rhythm Normal ECG When compared with ECG of 16-JUL-2021 23:29, No significant change was found Referred By: Janett Talavera Electronically Signed By:CASH SHELBY
--- NOTE | 2021-08-12 09:35 | ED_ITS ---
HPI - URI/Sore Throat General Chief Complaint: Upper Respiratory Symptoms Stated Complaint: SOB 98% @ 3LPM,LEG SWELLING PER EMS Time Seen by Provider: 08/12/21 09:21 Source: EMS Mode of arrival: EMS Limitations: no limitations History of Present Illness HPI Narrative: 71-year-old female with a past medical history of hypertension, hyperlipidemia, diabetes, GERD, obesity, ALDO on CPAP, osteoarthritis, osteo chondroma left femur, COPD on 2-3 L of home oxygen here with acute on chronic SOB over last few days despite home medications. Saw her PCP Thursday for follow-up. Recommended go to ER due to difficulty breathing but patient declined. Had outpatient x-ray and recommended to follow-up with Dr Frederick. Continues to feel short of breath today which is worsening causing patient to call EMS. +chronic cough. No chest pain, fever. Has LE swelling noted over the last few weeks. No pain, redness of the legs. On ASA only. Recent admit July 17 through July 25 for COPD exacerbation, COVID treated with nebulizers, IV steroids. Declined STR and was discharged home. Related Data Home Medications Medication Instructions Recorded Confirmed bupropion HCl 150 mg 24 hr 150 mg PO DAILY 04/25/20 08/12/21 tablet, extended release oxygen-air delivery systems #1 04/25/20 07/17/21 trazodone 100 mg tablet 250 mg PO BEDTIME 04/25/20 08/12/21 gabapentin 300 mg capsule 900 mg PO BEDTIME cap 05/13/21 08/12/21 fluticasone propionate 50 1 spray INTRANASAL DAILY 06/29/21 08/12/21 mcg/actuation nasal spray,suspension gabapentin 300 mg capsule 300 mg PO DAILY 06/29/21 08/12/21 hydroxyzine pamoate 25 mg 1 cap PO BID 06/29/21 08/12/21 capsule metformin 500 mg tablet 500 mg PO DAILY 06/29/21 08/12/21 ropinirole 2 mg tablet 2 mg PO BID 07/17/21 08/12/21 blood sugar diagnostic 08/09/21 (FreeStyle Lite Strips) hydroxyzine pamoate 25 mg 25 mg PO DAILY PRN 08/12/21 08/12/21 capsule insulin detemir U-100 100 20 unit SUBCUT DAILY 08/12/21 08/12/21 unit/mL (3 mL) subcutaneous pen (Levemir FlexTouch U-100 Insulin) Previous Rx's Medication Instructions Recorded nebulizers (AeroEclipse II #1 ea 02/05/21 Nebulizer) albuterol sulfate 90 mcg/actuation 2 puff INHALATION Q4-6H PRN 30 05/13/21 aerosol inhaler (ProAir HFA) Days #8.5 g lancets 28 gauge #100 ea 06/24/21 montelukast 10 mg tablet 10 mg PO BEDTIME 90 Days #90 tab 06/24/21 diaper,brief,adult,disposable #64 ea 06/26/21 (Depend Underwear For Women S-M) amlodipine 5 mg tablet (Norvasc) 5 mg PO DAILY 30 Days #30 tab 07/04/21 atorvastatin 80 mg tablet 80 mg PO DAILY 90 Days #90 tab 08/07/21 lisinopril 5 mg tablet 5 mg PO DAILY 90 Days #90 tab 08/09/21 pen needle, diabetic 31 gauge x #100 ea 08/09/2109/25 (BD Ultra-Fine Mini Pen Needle) pen needle, diabetic 31 gauge x #100 ea 08/12/21 3/16 Allergies Allergy/AdvReac Type Severity Reaction Status Date / Time adhesive tape Allergy Intermediate RASH Verified 08/07/21 13:06 [ADHESIVE TAPE] trimethobenzamide Allergy Mild NAUSEA Verified 08/07/21 13:06 [From TIGAN] environmental Allergy Intermediate Nasal Uncoded 08/07/21 13:06 congestion Review of Systems Verdana 4l Review of Systems: Yes all other systems are reviewed and Verdana 4d are negative Verdana 4l Constitutional: Verdana 4d Constitutional: Verdana 4d Verdana 4d Reports no additional constitutional complaints, Denies body ache(s), Denies chills, Denies fever(s), Denies headache(s) and Denies weakness Verdana 4l Eyes: Verdana 4d Verdana 4d Eyes: Verdana 4d Reports no additional eye complaints and Denies change in vision Verdana 4l ENT: Verdana 4d Reports system reviewed and no additional complaints, except as documented, Denies dizziness, Denies headache(s), Denies nasal congestion, Denies nasal discharge and Denies neck pain Verdana 4l Cardiovascular: Verdana 4d Cardiovascular: Verdana 4d Verdana 4d Reports no additional cardiovascular complaints, Denies chest pain, Reports leg edema and Reports dyspnea Verdana 4l Respiratory: Verdana 4d Verdana 4d Respiratory: Verdana 4d Reports no additional respiratory complaints, Reports cough and Reports dyspnea Verdana 4l Gastrointestinal: Verdana 4d Gastrointestinal: Verdana 4d Verdana 4d Reports no additional gastrointestinal complaints, Denies abdominal pain, Denies diarrhea, Denies nausea and Denies vomiting Verdana 4l Genitourinary: Verdana 4d Verdana 4d Genitourinary: Verdana 4d Reports no additional female genitourinary complaints and Denies urinary incontinence Verdana 4l Musculoskeletal: Verdana 4d Musculoskeletal: Verdana 4d Verdana 4d Reports no additional musculoskeletal complaints, Denies back pain, Denies arthralgias, Denies joint swelling, Denies neck pain, Denies numbness and Denies tingling Verdana 4l Integumentary/Breasts: Verdana 4d Skin/Breast: Verdana 4d Verdana 4d Reports system reviewed and no additional complaints, except as docu and Denies rash Verdana 4l Neurologic: Verdana 4d Reports system reviewed and no additional complaints, except as documented, Denies Abnormal speech present, Denies dizziness, Denies headache(s), Denies numbness, Denies tingling and Denies weakness PMFSH Past Medical History Attestation statement: The following information was validated with the patient. Source: old records reviewed and nursing notes reviewed Medical History Allergic rhinitis Arthritis Constipation due to opioid therapy COPD (chronic obstructive pulmonary disease) CPAP (continuous positive airway pressure) dependence Diabetes Diabetes Elevated cholesterol GERD (gastroesophageal reflux disease) History of adrenal adenoma History of diverticulitis History of restless legs syndrome Hx SBO Hyperlipidemia Obesity (BMI 30-39.9) Obesity due to excess calories ALDO (obstructive sleep apnea) Osteoarthritis of left knee Osteochondroma of left femur Surgical History H/O colonoscopy H/O excision of mass H/O exploratory laparotomy History of appendectomy History of arthroscopy of left knee History of cholecystectomy History of hysterectomy History of oophorectomy History of partial colectomy History of surgery Hx of cataract extraction Family History Family History Father HTN (hypertension) Diabetes mellitus Mother HTN (hypertension) Liver cancer Social History Social History 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: Spouse 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 Other:: ex Housing: House Are you a primary career education teacher to a significant other at home: No Do you presently have visiting nurse or other home services: No Alcohol intake: unknown Patient Tobacco Use Status: Never used Tobacco Second Hand Smoke Exposure: Yes Advance Directives: Yes Advance Directives Information Provided: Yes Advance Directives on File: No Advance Directives Date on File: 07/08/21 service: No Current occupational status: unemployed Physical Exam Verdana 4l Vital Signs: Verdana 4d Verdana 4d Vital Signs: Verdana 4d Verdana 4Bd Last Vital Signs Verdana 4d Appliance Tester New 4d Appliance Tester New 4d Temp 97.5 F 08/12/21 11:02 Appliance Tester New 4d Pulse 84 08/12/21 11:02 Appliance Tester New 4d Resp 19 08/12/21 11:02 BP 112/59 L 08/12/21 11:02 Pulse Ox 97 08/12/21 13:11 Oxygen Flow Rate 3 08/12/21 09:20 BMI result Body Mass Index 32.6 Const: General: cooperative, healthy appearing, comfortable and no acute distress Orientation/consciousness: patient oriented x3 Limitations: no limitations HENMT: Head: Yes normal to inspection Ears: hearing grossly normal bilaterally General nose exam: Normal external nose present Face and sinus: Yes normal facial exam Mouth: Normal oral and palatal mucosa present Throat: Yes posterior oropharynx normal Eyes: General: appearance normal, both eyes and all related structures Pupils: Equal, round and reactive pupils present Neck: Neck: Yes normal visual inspection and Yes no lymphadenopathy Chest: Chest palpation & inspection: normal inspection of the chest Resp: Other: Not moving much air Diminished throughout with slight wheezing in upper airways Mild accessory muscle use with tachypnea rate 22 Effort & Inspection: normal respiratory effort Cardio: Rate: regular rate Rhythm: regular rhythm Peripheral pulses: Peripheral pulses 2+ throughout GI: Inspection: Yes normal to inspection Palpation (GI): Soft to palpation and nontender Auscultation: normal bowel sounds Back/Spine/Pelvis: Thoracic/Lumbar Spine: thoracic and lumbar spine normal to inspection Skin: General skin exam: no rashes or lesions noted Neuro: General: patient oriented x3, no focal motor deficits and normal sensation to monofilament Cranial nerves: Yes Equal, round and reactive pupils present Cognition (Neuro): normal cognition Speech: No Abnormal speech present Gait exam (Neuro): Normal gait present Motor exam (neuro): 5/5 motor strength present throughout Extrem: Other: 1 plus non pitting edema to LE General: Yes normal to inspection and Yes no calf tenderness Course Course Course Narrative: 71 yo female here with complaints of increasing SOB last few days with associated chronic cough and LE swelling. No increased oxygen requirements. Using nebulizers with continued symptoms. Recent admit for COPD exacerbation complicated by COVID 19 infection, declined STR on discharge and has been home with services. On arrival mild tachypnea noted, diminished breath sounds throughout with wheezing. 1 plus non pitting edema. Will check CXR, EKG, labs. Give duoneb, IV solumedrol, IV magnesium. Tachypnea from CLD and not infection 1115-chest x-ray is concerning for bilateral pneumonia. Patient recent hospitalization for both COVID and COPD exacerbation. At this time infection chavarria spected. Blood cultures and lactic acid ordered. Antibiotics ordered for assumed a healthcare acquired pneumonia. Very tachypnic with movement to commode, continued wheezing throughout, w hypoxia on baseline 2L NC. Anticipate admission. 1230-discussed case with Dr. Smith from medicine who accepted admission MDM - URI/Sore Throat Medical Records Attestation: I reviewed the patient's medical records. Lab Data Attestation: I reviewed the patient's lab results. Result diagrams: 08/12/21 09:52 08/12/21 09:52 Labs: Lab Results 08/12/21 08/12/21 08/12/21 Range/Units 09:52 09:52 09:52 WBC 7.4 (4.8-10.8) X10*3/uL RBC 3.25 L (4.20-5.50) X10*6/uL Hgb 9.1 L (12.0-16.0) g/dl Hct 29.8 L (37.0-47.0) % MCV 91.7 (80.0-98.0) fL MCH 28.0 (27.0-33.0) pg MCHC 30.5 L (31.0-35.0) g/dl RDW 13.2 (11.0-16.0) % Plt Count 268 D (160-400) X10*3/uL MPV 10.8 (9.4-12.3) fL Immature Gran % (Auto) 1.7 H (0.0-0.4) % Neut % (Auto) 60.0 (45-73) % Lymph % (Auto) 25.7 (20-40) % [place] % (Auto) 8.9 (2-11) % Eos % (Auto) 3.6 (0-4) % Baso % (Auto) 0.1 (0-2) % Lymph # (Auto) 1.9 (1.2-4.9) X10*3/uL [place] # (Auto) 0.7 (0.1-1.2) X10*3/uL Eos # (Auto) 0.3 (0.0-0.4) X10*3/uL Baso # (Auto) 0.0 (0.0-0.2) X10*3/uL Abs Immat Gran (auto) 0.13 H (0.00-0.03) X10*3/uL Absolute Neuts (auto) 4.5 (2.0-8.3) x10*3/uL Absolute Nucleated RBC 0.000 (0.0-0.012) X10*3/uL Nucleated RBC % (auto) 0.0 (0.0-0.2) /100WBC PT (9.9-13.0) SEC INR (0.9-1.1) VBG pH (7.32-7.43) VBG pCO2 mmHg VBG pO2 mmHg VBG HCO3 (22-26) mmol/L VBG O2 Saturation % VBG Base Excess mmol/L Sodium 141 (135-145) mmol/L Potassium 4.4 (3.3-5.1) mmol/L Chloride 101 (96-108) mmol/L Carbon Dioxide 30 H (22-29) mmol/L Anion Gap 14 (12-20) BUN 19 H D (9-16) mg/dL Creatinine 1.72 H (0.5-1.4) mg/dL Estim Creat Clear Calc 36.6 Estimated GFR 29 Random Glucose 244 H (60-115) mg/dL Calcium 9.4 D (8.4-10.2) mg/dL Total Bilirubin 0.3 (0.0-1.0) mg/dL Direct Bilirubin < 0.2 (0.0-0.5) mg/dL AST 19 (5-31) U/L ALT 18 (0-31) U/L Alkaline Phosphatase 43 (39-117) U/L Troponin I High Sens 4.8 (<3.5-17.0) ng/L B-Natriuretic Peptide < 10 (<100) pg/mL Total Protein 6.0 L (6.5-8.0) g/dL Albumin 3.3 L (3.5-5.0) g/dL Procalcitonin ng/mL COVID-19 (JESSIKA) (Negative) COVID-19 Clin Com 08/12/21 08/12/21 08/12/21 Range/Units 09:52 09:52 09:59 WBC (4.8-10.8) X10*3/uL RBC (4.20-5.50) X10*6/uL Hgb (12.0-16.0) g/dl Hct (37.0-47.0) % MCV (80.0-98.0) fL MCH (27.0-33.0) pg MCHC (31.0-35.0) g/dl RDW (11.0-16.0) % Plt Count (160-400) X10*3/uL MPV (9.4-12.3) fL Immature Gran % (Auto) (0.0-0.4) % Neut % (Auto) (45-73) % Lymph % (Auto) (20-40) % [place] % (Auto) (2-11) % Eos % (Auto) (0-4) % Baso % (Auto) (0-2) % Lymph # (Auto) (1.2-4.9) X10*3/uL [place] # (Auto) (0.1-1.2) X10*3/uL Eos # (Auto) (0.0-0.4) X10*3/uL Baso # (Auto) (0.0-0.2) X10*3/uL Abs Immat Gran (auto) (0.00-0.03) X10*3/uL Absolute Neuts (auto) (2.0-8.3) x10*3/uL Absolute Nucleated RBC (0.0-0.012) X10*3/uL Nucleated RBC % (auto) (0.0-0.2) /100WBC PT 12.1 (9.9-13.0) SEC INR 1.1 (0.9-1.1) VBG pH 7.47 H (7.32-7.43) VBG pCO2 44 mmHg VBG pO2 98 mmHg VBG HCO3 32 H (22-26) mmol/L VBG O2 Saturation 97.0 % VBG Base Excess 8.4 mmol/L Sodium (135-145) mmol/L Potassium (3.3-5.1) mmol/L Chloride (96-108) mmol/L Carbon Dioxide (22-29) mmol/L Anion Gap (12-20) BUN (9-16) mg/dL Creatinine (0.5-1.4) mg/dL Estim Creat Clear Calc Estimated GFR Random Glucose (60-115) mg/dL Calcium (8.4-10.2) mg/dL Total Bilirubin (0.0-1.0) mg/dL Direct Bilirubin (0.0-0.5) mg/dL AST (5-31) U/L ALT (0-31) U/L Alkaline Phosphatase (39-117) U/L Troponin I High Sens (<3.5-17.0) ng/L B-Natriuretic Peptide (<100) pg/mL Total Protein (6.5-8.0) g/dL Albumin (3.5-5.0) g/dL Procalcitonin 0.06 ng/mL COVID-19 (JESSIKA) (Negative) COVID-19 Clin Com 08/12/21 Range/Units 12:32 WBC (4.8-10.8) X10*3/uL RBC (4.20-5.50) X10*6/uL Hgb (12.0-16.0) g/dl Hct (37.0-47.0) % MCV (80.0-98.0) fL MCH (27.0-33.0) pg MCHC (31.0-35.0) g/dl RDW (11.0-16.0) % Plt Count (160-400) X10*3/uL MPV (9.4-12.3) fL Immature Gran % (Auto) (0.0-0.4) % Neut % (Auto) (45-73) % Lymph % (Auto) (20-40) % [place] % (Auto) (2-11) % Eos % (Auto) (0-4) % Baso % (Auto) (0-2) % Lymph # (Auto) (1.2-4.9) X10*3/uL [place] # (Auto) (0.1-1.2) X10*3/uL Eos # (Auto) (0.0-0.4) X10*3/uL Baso # (Auto) (0.0-0.2) X10*3/uL Abs Immat Gran (auto) (0.00-0.03) X10*3/uL Absolute Neuts (auto) (2.0-8.3) x10*3/uL Absolute Nucleated RBC (0.0-0.012) X10*3/uL Nucleated RBC % (auto) (0.0-0.2) /100WBC PT (9.9-13.0) SEC INR (0.9-1.1) VBG pH (7.32-7.43) VBG pCO2 mmHg VBG pO2 mmHg VBG HCO3 (22-26) mmol/L VBG O2 Saturation % VBG Base Excess mmol/L Sodium (135-145) mmol/L Potassium (3.3-5.1) mmol/L Chloride (96-108) mmol/L Carbon Dioxide (22-29) mmol/L Anion Gap (12-20) BUN (9-16) mg/dL Creatinine (0.5-1.4) mg/dL Estim Creat Clear Calc Estimated GFR Random Glucose (60-115) mg/dL Calcium (8.4-10.2) mg/dL Total Bilirubin (0.0-1.0) mg/dL Direct Bilirubin (0.0-0.5) mg/dL AST (5-31) U/L ALT (0-31) U/L Alkaline Phosphatase (39-117) U/L Troponin I High Sens (<3.5-17.0) ng/L B-Natriuretic Peptide (<100) pg/mL Total Protein (6.5-8.0) g/dL Albumin (3.5-5.0) g/dL Procalcitonin ng/mL COVID-19 (JESSIKA) Negative (Negative) COVID-19 Clin Com See Note Imaging Data Chest x-ray: Attestation: I personally reviewed and interpreted this imaging study as follows: Radiologist's impression: FINDINGS: The lungs are well-expanded and clear of acute pneumonic process. There is patchy opacity in both lung bases question atelectasis or infiltrate, similar to previous study. The heart size and pulmonary vascularity is normal. Mild extra scoliosis with moderate spondylosis dorsal spine. XR/XR chest 2V IMPRESSION: Patchy opacity in both lung bases likely atelectasis or infiltrate. No change from previous study 08/08/2021 ECG Data Attestation: I personally reviewed and interpreted this ECG as follows: ECG interpretation date: 08/12/21 ECG interpretation time: 10:02 Interpretation: Normal sinus rhythm with a rate of 93, normal FL, normal QRS, normal QT Discharge Plan Discharge Clinical Impression: COPD exacerbation, Pneumonia, Anemia, CKD (chronic kidney disease) Patient Disposition: Admitted As Inpatient
[2021-08-12] MEDS: Albuterol/Iprat 2.5/0.5MG 3 ML AMPUL.NEB INHALE ×3 (09:45→21:00)
[2021-08-12 10:03] LABS: Venous Blood Gas Refer to POC result
[2021-08-12 10:04] LABS: VBG Base Excess 8.4 mmol/L; VBG HCO3 32 mmol/L (22-26); VBG pCO2 44 mmHg; VBG pH 7.47 (7.32-7.43); VBG pO2 98 mmHg
[2021-08-12 10:07] LABS: MANUAL DIFF FLAG NO
[2021-08-12 10:15] LABS: INTERNATIONAL NORM RATIO 1.1 (0.9-1.1); Prothrombin Time 12.1 SEC (9.9-13.0)
[2021-08-12 10:17] LABS: Basophils Percent Auto 0.1 % (0-2); Eosinophils Absolute Auto 0.3 X10*3/uL (0.0-0.4); Eosinophils Percent Auto 3.6 % (0-4); Hematocrit 29.8 % (37.0-47.0); Hemoglobin 9.1 g/dl (12.0-16.0); Imm Gran Abs Auto 0.13 X10*3/uL (0.00-0.03); Imm Gran Pct Auto 1.7 % (0.0-0.4); Lymphocytes Absolute Auto 1.9 X10*3/uL (1.2-4.9); Lymphocytes Percent Auto 25.7 % (20-40); Mean Corpuscular HGB Conc 30.5 g/dl (31.0-35.0); Mean Corpuscular Volume 91.7 fL (80.0-98.0); Mean Platelet Volume 10.8 fL (9.4-12.3); Monocytes Absolute Auto 0.7 X10*3/uL (0.1-1.2); Monocytes Percent Auto 8.9 % (2-11); Neutrophils Absolute Auto 4.5 x10*3/uL (2.0-8.3); Platelet Count 268 X10*3/uL (160-400); Red Blood Count 3.25 X10*6/uL (4.20-5.50); Red Cell Distribution Width 13.2 % (11.0-16.0); White Blood Count 7.4 X10*3/uL (4.8-10.8)
[2021-08-12] MEDS: methylPREDNISolone Sod Succ 125 MG/2 ML VIAL IVPUSH (10:18)
[2021-08-12] MEDS: Magnesium Sulfate/H2O 2 GM/50 ML PIGGYBACK IV (10:18)
[2021-08-12 10:35] LABS: Alanine Aminotransferase 18 U/L (0-31); Albumin Level 3.3 g/dL (3.5-5.0); Alkaline Phosphatase 43 U/L (39-117); Anion Gap 14 (12-20); Aspartate Amino Transferase 19 U/L (5-31); Bilirubin Direct < 0.2 mg/dL (0.0-0.5); Bilirubin Total 0.3 mg/dL (0.0-1.0); Blood Urea Nitrogen 19 mg/dL (9-16); Calcium 9.4 mg/dL (8.4-10.2); Carbon Dioxide 30 mmol/L (22-29); Chloride 101 mmol/L (96-108); Creatinine Clr Calc Pharmacy 36.6; Estimated Glomerular Filt Rate 29; Glucose Random 244 mg/dL (60-115); Potassium 4.4 mmol/L (3.3-5.1); Sodium 141 mmol/L (135-145)
[2021-08-12 10:45] LABS: B Type Natriuretic Peptide < 10 pg/mL (<100); Troponin-I High Sensitivity 4.8 ng/L (<3.5-17.0)
--- NOTE | 2021-08-12 11:43 | PHA.MEDREC ---
Pharmacy Consult ? Medication Reconciliation Pharmacy has completed the medication reconciliation. Patient reports medication are the same as last admission. Levemir was no on list but she takes it at home. She reports she has a PRN hydroxyzine in addition to BID RANGEL. Jennifer Mujica, SeleneD
[2021-08-12 12:18] LABS: Procalcitonin 0.06 ng/mL
[2021-08-12 12:51] LABS: COVID-19 Test Negative (Negative)
--- NOTE | 2021-08-12 13:55 | PC.NURSE ---
PT IS A DIFFICULT STICK AND WAITING ON PHLEBOTOMY FOR LAB WORK
--- NOTE | 2021-08-12 14:01 | P.HPHOSP_ITS ---
History of Present Illness Date of Service: 08/12/21 Attending physician on admission: Em Smith Chief Complaint: shortness of breath 71-year-old female patient with past medical history significant for hypertension, hyperlipidemia, diabetes mellitus, GERD, osteoarthritis, osteo chondroma left femur history of COPD on 2 L of oxygen, history of obstructive sleep apnea on CPAP recently discharged from [facility] on July 25 after being treated for COVID infection, AGUSTIN and fall, as per patient she was doing fine up until few days ago when she developed shortness of breath worse with exertion associated with cough productive of clear phlegm she has been feeling cold but denies any fevers, denies nausea vomiting no recent travel, has been compliant with all of her medication use 2 L of oxygen at home since was unable to walk short distances without being short of breath came to the emergency room and noted to have finger 88% on 2 L, chest x-ray showed bilateral opacity infiltrate versus atelectasis, renal function at baseline, noted to have drop in hematocrit from 33.4-29.8, patient denies melena, hematochezia or hematemesis, patient will be admitted to medical floor with a diagnosis of acute on chronic hypoxic respiratory failure. Review of Systems Verdana 4l Review of Systems: Verdana 4d Verdana 4d General no headache , no dizziness , feels cold no fever CVS no chest pain, no palpitation. Respiratory productive cough, shortness of breath worse with exertion Gastrointestinal no nausea no vomiting, no abdominal pain no urgency,, no burning musculoskeletal no pain skin no rash Yes all other systems are reviewed and are negative [facility] Medical History Allergic rhinitis Arthritis Constipation due to opioid therapy COPD (chronic obstructive pulmonary disease) CPAP (continuous positive airway pressure) dependence Diabetes Diabetes Elevated cholesterol GERD (gastroesophageal reflux disease) History of adrenal adenoma History of diverticulitis History of restless legs syndrome Hx SBO Hyperlipidemia Obesity (BMI 30-39.9) Obesity due to excess calories ALDO (obstructive sleep apnea) Osteoarthritis of left knee Osteochondroma of left femur Family History Father HTN (hypertension) Diabetes mellitus Mother HTN (hypertension) Liver cancer Surgical History H/O colonoscopy H/O excision of mass H/O exploratory laparotomy History of appendectomy History of arthroscopy of left knee History of cholecystectomy History of hysterectomy History of oophorectomy History of partial colectomy History of surgery Hx of cataract extraction Social History 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: Spouse 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 Other:: ex Housing: House Are you a primary direct care professional to a significant other at home: No Do you presently have visiting nurse or other home services: No Alcohol intake: unknown Patient Tobacco Use Status: Never used Tobacco Second Hand Smoke Exposure: Yes Advance Directives: Yes Advance Directives Information Provided: Yes Advance Directives on File: No Advance Directives Date on File: 07/08/21 service: No Current occupational status: unemployed Meds Allergies Allergy/AdvReac Type Severity Reaction Status Date / Time adhesive tape Allergy Intermediate RASH Verified 08/07/21 13:06 [ADHESIVE TAPE] trimethobenzamide Allergy Mild NAUSEA Verified 08/07/21 13:06 [From TIGAN] environmental Allergy Intermediate Nasal Uncoded 08/07/21 13:06 congestion Active Medications: Current Medications Acetaminophen (Acetaminophen 325 Mg Tablet) 650 mg PO Q6H PRN PRN Reason: Pain, Mild (Pain Scale 1-3) Albuterol Sulfate (Albuterol Sulfate 90 Mcg 8 Gm Inhaler) 2 puff INHALE Q4H PRN PRN Reason: shortness of breath or wheezing Albuterol/Ipratropium (Albuterol/Iprat 2.5/0.5mg 3 Ml Ampul.Neb) 3 ml INHALE RQ6H WHILE AWAKE [facility] Amlodipine Besylate (Amlodipine Besylate 5 Mg Tablet) 5 mg PO DAILY RANGEL; Protocol Atorvastatin Calcium (Atorvastatin Calcium 80 Mg Tablet) 80 mg PO DAILY [facility] Bupropion HCl (Bupropion Hcl Xl 150 Mg Tab.Er.24h) 150 mg PO DAILY [facility] Enoxaparin Sodium (Enoxaparin Sodium 40 Mg/0.4 Ml Syringe) 40 mg SUBCUT Q24H [facility] Fluticasone Propionate (Fluticasone Propionate Nasal 16 Gm [place]) 1 spray NOSTRIL-B DAILY [facility] Gabapentin (Gabapentin 300 Mg Capsule) 300 mg PO DAILY [facility] Gabapentin (Gabapentin 300 Mg Capsule) 900 mg PO BEDTIME [facility] Hydroxyzine HCl (Hydroxyzine Hcl 25 Mg Tablet) 25 mg PO DAILY PRN PRN Reason: Anxiety Hydroxyzine HCl (Hydroxyzine Hcl 25 Mg Tablet) 25 mg PO BID [facility] Metformin HCl (Metformin Hcl 500 Mg Tablet) 500 mg PO DAILY [facility] Montelukast Sodium (Montelukast Sodium 10 Mg Tablet) 10 mg PO BEDTIME [facility] Non-Formulary Medication (Insulin Detemir U-100 [Levemir Flextouch U-100 In suln]) 20 unit SUBCUT DAILY [facility] Ondansetron HCl (Ondansetron Hcl 4 Mg/2 Ml Vial) 4 mg IVPUSH Q8H PRN PRN Reason: Nausea Pharmacy Consult (Consult Rx Perform Med Rec) 1 each MISCELLANE ONCE PRN PRN Reason: Consult order Ropinirole HCl (Ropinirole Hcl 2 Mg Tablet) 2 mg PO BID [facility] Sodium Chloride (0.9 % Sodium Chloride Flush 3 Ml Syringe) 3 ml IVFLUSH QSHIFT [facility] Trazodone HCl (Trazodone Hcl 100 Mg Tablet) 200 mg PO BEDTIME [facility] Home Medications Medication Instructions Recorded Confirmed Last Taken Type bupropion HCl 150 150 mg PO DAILY 04/25/20 08/12/21 07/07/21 History mg 24 hr tablet, extended release oxygen-air #1 04/25/20 07/17/21 07/07/21 History delivery systems trazodone 100 mg 250 mg PO 04/25/20 08/12/21 07/06/21 History tablet BEDTIME gabapentin 300 mg 900 mg PO 05/13/21 08/12/21 07/06/21 History capsule BEDTIME cap fluticasone 1 spray 06/29/21 08/12/21 07/07/21 History propionate 50 INTRANASAL DAILY mcg/actuation nasal spray,suspension gabapentin 300 mg 300 mg PO DAILY 06/29/21 08/12/21 07/07/21 History capsule hydroxyzine 1 cap PO BID 06/29/21 08/12/21 07/07/21 History pamoate 25 mg capsule metformin 500 mg 500 mg PO DAILY 06/29/21 08/12/21 07/07/21 History tablet ropinirole 2 mg 2 mg PO BID 07/17/21 08/12/21 Unknown History tablet blood sugar 08/09/21 Unknown History diagnostic (FreeStyle Lite Strips) hydroxyzine 25 mg PO DAILY 08/12/21 08/12/21 Unknown History pamoate 25 mg PRN capsule insulin detemir 20 unit SUBCUT 08/12/21 08/12/21 Unknown History U-100 100 unit/mL DAILY (3 mL) subcutaneous pen (Levemir FlexTouch U-100 Insulin) Physical Exam Verdana 4l Vital Signs and Narrative: Verdana 4d Verdana 4d Vital Signs: Verdana 4d Verdana 4Bd Last Vital Signs Verdana 4d Final Inspection Supervisor New 4d Final Inspection Supervisor New 4d Temp 97.5 F 08/12/21 11:02 Final Inspection Supervisor New 4d Pulse 84 08/12/21 11:02 Final Inspection Supervisor New 4d Resp 19 08/12/21 11:02 BP 112/59 L 08/12/21 11:02 Pulse Ox 97 08/12/21 13:11 Oxygen Flow Rate 3 08/12/21 09:20 BMI result Body Mass Index 32.6 Const: Other: General awake alert, no acute distress. HEENT pupil equal reactive to light and accommodation Neck supple no JVD. CVS regular rate rhythm, Respiratory lungs clear to auscultation, no respiratory distress Gastrointestinal abdomen soft, nontender, bowel sounds audible, Extremities no edema. Neuro nonfocal , speech clear. Skin no rash Psych appropriate affect Results Labs CBC and Chem 7: 08/12/21 09:52 08/12/21 09:52 Labs: Laboratory Results - last 24 hr 08/12/21 08/12/21 08/12/21 09:52 09:52 09:52 MCV 91.7 MCH 28.0 MCHC 30.5 L RDW 13.2 Plt Count 268 D MPV 10.8 Immature Gran % (Auto) 1.7 H Neut % (Auto) 60.0 Lymph % (Auto) 25.7 Love % (Auto) 8.9 Eos % (Auto) 3.6 Baso % (Auto) 0.1 Lymph # (Auto) 1.9 Love # (Auto) 0.7 Eos # (Auto) 0.3 Baso # (Auto) 0.0 Abs Immat Gran (auto) 0.13 H Absolute Neuts (auto) 4.5 Absolute Nucleated RBC 0.000 Nucleated RBC % (auto) 0.0 PT INR VBG pH VBG pCO2 VBG pO2 VBG HCO3 VBG O2 Saturation VBG Base Excess Anion Gap 14 Estim Creat Clear Calc 36.6 Estimated GFR 29 Random Glucose 244 H Calcium 9.4 D Total Bilirubin 0.3 Direct Bilirubin < 0.2 AST 19 ALT 18 Alkaline Phosphatase 43 Troponin I High Sens 4.8 B-Natriuretic Peptide < 10 Total Protein 6.0 L Albumin 3.3 L Procalcitonin COVID-19 (JESSIKA) COVID-19 Clin Com 08/12/21 08/12/21 08/12/21 09:52 09:52 09:59 MCV MCH MCHC RDW Plt Count MPV Immature Gran % (Auto) Neut % (Auto) Lymph % (Auto) Love % (Auto) Eos % (Auto) Baso % (Auto) Lymph # (Auto) Love # (Auto) Eos # (Auto) Baso # (Auto) Abs Immat Gran (auto) Absolute Neuts (auto) Absolute Nucleated RBC Nucleated RBC % (auto) PT 12.1 INR 1.1 VBG pH 7.47 H VBG pCO2 44 VBG pO2 98 VBG HCO3 32 H VBG O2 Saturation 97.0 VBG Base Excess 8.4 Anion Gap Estim Creat Clear Calc Estimated GFR Random Glucose Calcium Total Bilirubin Direct Bilirubin AST ALT Alkaline Phosphatase Troponin I High Sens B-Natriuretic Peptide Total Protein Albumin Procalcitonin 0.06 COVID-19 (JESSIKA) COVID-19 Clin Com 08/12/21 12:32 MCV MCH MCHC RDW Plt Count MPV Immature Gran % (Auto) Neut % (Auto) Lymph % (Auto) Love % (Auto) Eos % (Auto) Baso % (Auto) Lymph # (Auto) Love # (Auto) Eos # (Auto) Baso # (Auto) Abs Immat Gran (auto) Absolute Neuts (auto) Absolute Nucleated RBC Nucleated RBC % (auto) PT INR VBG pH VBG pCO2 VBG pO2 VBG HCO3 VBG O2 Saturation VBG Base Excess Anion Gap Estim Creat Clear Calc Estimated GFR Random Glucose Calcium Total Bilirubin Direct Bilirubin AST ALT Alkaline Phosphatase Troponin I High Sens B-Natriuretic Peptide Total Protein Albumin Procalcitonin COVID-19 (JESSIKA) Negative COVID-19 Clin Com See Note Imaging Radiologist's Impressions: Impressions Chest X-Ray 08/12/21 10:35 IMPRESSION: Patchy opacity in both lung bases likely atelectasis or infiltrate. No change from previous study 08/08/2021 Assessment and Plan (1) Anemia: Status: Acute (2) CKD (chronic kidney disease): Status: Acute (3) COPD exacerbation: Status: Acute (4) Acute and chronic respiratory failure with hypoxia: Status: Acute Plan 71-year-old female with a past medical history of hypertension, hyperlipidemia, diabetes, GERD, obesity, ALDO on CPAP, osteoarthritis, osteo chondroma left femur, COPD on 2 L of home oxygen; COVID-19 vaccinated, status post recent COVID infection and AGUSTIN presented to the hospital today with a chief complaint of shortness of breath worse with exertion associated with cough productive of clear phlegm, diagnosed to have acute on chronic hypoxic respiratory failure and acute on chronic anemia. Acute on chronic hypoxic respiratory failure likely due to COPD exacerbation , post COVID sequlea and worsening anemia. will treat patient with DuoNeb, IV steroids,and cough medication, supportive care patient on 2 L of oxygen at home, noted to have finger oximetry 88% on 2 L check stool guaiac iron studies repeat COVID is negative obstructive sleep apnea continue CPAP diabetes mellitus type 2 with hyperglycemia continue home medication add insulin sliding scale and diabetic diet generalized weakness, encourage out of bed with ambulation, if noted to be weak will obtain PT consult, on multiple sedative medications will reduce dose of trazodone to 200 mg from 250 mg hypertension soft BP on arrival patient on lisinopril and amlodipine will hold lisinopril continue amlodipine follow BP closely chronic kidney disease stage 3 stable DVT prophylaxis with lovenox full code Quality Stroke Does the patient have a stroke diagnosis?: No VTE Prior VTE?: No VTE Risk Level:: Medical - moderate - high VTE Device Contraindication: Treatment Not Indicated VTE Drug Contraindication: N/A - Med Ordered
[2021-08-12] MEDS: cefEPime HCl 2 GM in 0.9 % Sodium Chloride 50 ML IV (14:10)
[2021-08-12] MEDS: Enoxaparin Sodium 40 MG/0.4 ML SYRINGE SUBCUT (14:11)
[2021-08-12 14:47] LABS: Lactic Acid 3.3 mmol/L (0.5-2.0)
[2021-08-12 14:57] LABS: Iron 52 mcg/dL (30-160); Percent Iron Saturation 18 % (15-50); Total Iron Binding Capacity 294 mcg/dL (228-428); Unsaturated Iron Binding 242 ug/dL
[2021-08-12 15:17] LABS: Ferritin 109 ng/mL (10-250)
[2021-08-12 16:04] LABS: Reflex Lactate? Lactic Acid Added
[2021-08-12 16:57] LABS: ~Lactic Acid-LAB USE ONLY 5.1 mmol/L (0.5-2.0)
[2021-08-12 17:28] LABS: Glucose, Whole Blood 409 mg/dL (60-115)
[2021-08-12] MEDS: Insulin Lispro 100 UNIT/ML 3 ML VIAL SUBCUT ×2 (17:29→20:15)
[2021-08-12] MEDS: 0.9 % Sodium Chloride 1,000 ML 100 ML IVCONT (17:39)
[2021-08-12] MEDS: 0.9 % Sodium Chloride Flush 3 ML SYRINGE IVFLUSH (17:39)
[2021-08-12 18:43] LABS: Reflex Lactate? 2 Y
[2021-08-12 19:59] LABS: Glucose, Whole Blood 401 mg/dL (60-115)
[2021-08-12] MEDS: traZODone HCL 100 MG TABLET 200 MG PO (20:14)
[2021-08-12] MEDS: Montelukast Sodium 10 MG TABLET PO (20:14)
[2021-08-12] MEDS: Gabapentin 300 MG CAPSULE 900 MG PO (20:14)
[2021-08-12] MEDS: methylPREDNISolone Sod Succ 40 MG/ML VIAL IVPUSH (20:14)
[2021-08-12] MEDS: rOPINIRole HCL 2 MG TABLET PO (20:14)
[2021-08-12] MEDS: hydrOXYzine HCL 25 MG TABLET PO (20:14)
--- NOTE | 2021-08-12 22:54 | PC.NURSE ---
pt's POC at bedtime was 401, Dr. Richard aware, gave 14 units of humalog per sliding scale.
[2021-08-12 23:51] LABS: Lactic Acid 2.9 mmol/L (0.5-2.0)
[2021-08-13 01:19] LABS: Reflex Lactate? Lactic Acid Added
[2021-08-13 01:56] LABS: ~Lactic Acid-LAB USE ONLY 2.4 mmol/L (0.5-2.0)
[2021-08-13 03:41] LABS: Reflex Lactate? 2 Y
--- NOTE | 2021-08-13 03:45 | PC.NURSE ---
PER CHANGE OF SHIFT REPORT A REPEAT LACTIC LEVEL WILL BE DRAWN ON THIS PT AT 0000; RESULT NOTED AT 2.9 WHICH IS DOWN FROM PREVIOUS 5.0. HOSPITALIST ON DUTY ALERTED VIA TIGER TEXT AND WILL AGAIN REPEAT DRAW IN 2 HOURS. VITALS, [id number], O2 AT 4L/M N/C AND SAT LEVEL 95%, IVF ORDERED OF NS 100ML/HR. PT OFFERS NO COMPLAINTS, ASSIST OF ONE TO BEDSIDE COMMODE. REPEAT LACTIC RESULT OF 2.4 AT 0200 ALSO REPORTED TO HOSPITALIST, NO CHANGES TO PT STATUS, AND WILL AGAIN REPEAT AT 0400. CONTINUE TO MONITOR CLOSELY
[2021-08-13 04:00] VITALS: BP 130/60; PULSE 91; RESP 17; TEMP 36.9; O2SAT 96
[2021-08-13 04:09] LABS: ~Lactic Acid-LAB USE ONLY 1.8 mmol/L (0.5-2.0)
--- NOTE | 2021-08-13 04:41 | PC.NURSE ---
REPEAT LACTIC DRAW FROM 0400 IS AT 1.8. HOSPITALIST UPDATED BY TIGER TEXT AND NOTED TO HAVE READ ALL MESSAGES.
[2021-08-13] MEDS: Albuterol/Iprat 2.5/0.5MG 3 ML AMPUL.NEB INHALE ×2 (05:40→11:11)
[2021-08-13 05:41] VITALS: PULSE 106; RESP 18
[2021-08-13 07:16] VITALS: BP 117/56; PULSE 91; RESP 20; TEMP 36.1; O2SAT 97
[2021-08-13 07:43] LABS: Glucose, Whole Blood 353 mg/dL (60-115)
[2021-08-13] MEDS: Insulin Lispro 100 UNIT/ML 3 ML VIAL SUBCUT ×2 (07:51→12:07)
[2021-08-13] MEDS: methylPREDNISolone Sod Succ 40 MG/ML VIAL IVPUSH (07:53)
[2021-08-13] MEDS: 0.9 % Sodium Chloride Flush 3 ML SYRINGE IVFLUSH (07:53)
[2021-08-13] MEDS: buPROPion HCl XL 150 MG TAB.ER.24H PO (07:53)
[2021-08-13] MEDS: Atorvastatin Calcium 80 MG TABLET PO (07:54)
[2021-08-13] MEDS: amLODIPine Besylate 5 MG TABLET PO (07:54)
[2021-08-13] MEDS: hydrOXYzine HCL 25 MG TABLET PO (07:55)
[2021-08-13] MEDS: Gabapentin 300 MG CAPSULE PO (07:55)
[2021-08-13] MEDS: rOPINIRole HCL 2 MG TABLET PO (07:55)
--- NOTE | 2021-08-13 09:23 | MHC.CM.PN ---
CM met with Patient at bedside and addressed IMM with her, providing her with the original and placing a copy on the chart. Patient lives in an apartment with her Ex and she uses a walker to assist with mobility. Patient has [employer] for home O2 and she is active with [facility]. Home/resume said services is the goal and CM has initiated and will follow for dc planning. Patient's PCP is Dr. Shelbi Perez and she has received [employer] X 3 [employer] vax.
[2021-08-13] MEDS: Insulin Glargine,Hum.rec.anlog 100 UNIT/ML 10 ML VIAL 14 UNIT SUBCUT (09:33)
[2021-08-13 11:13] VITALS: PULSE 92; RESP 20; O2SAT 93
[2021-08-13 11:14] LABS: Glucose, Whole Blood 273 mg/dL (60-115)
[2021-08-13 11:49] VITALS: BP 116/60; RESP 18; TEMP 36.9; O2SAT 97
--- NOTE | 2021-08-13 14:03 | P.DS_ITS ---
DS: Providers Provider Date of Service: 08/13/21 Date of admission: 08/12/21 13:38 Primary care physician: Shelbi Perez MD DS: Diagnosis Discharge Diagnosis (1) Anemia: Status: Acute (2) CKD (chronic kidney disease): Status: Acute (3) COPD exacerbation: Status: Acute (4) Acute and chronic respiratory failure with hypoxia: Status: Acute DS: Summary Hospital Course Hospital Course: Chief Complaint:? shortness of breath ?71-year-old female patient with past medical history significant for hypertension, hyperlipidemia, diabetes mellitus, GERD, osteoarthritis, osteo chondroma left femur history of COPD on 2 L of oxygen, history of obstructive sleep apnea on CPAP recently discharged from [facility] on July 25 after being treated for COVID infection, AGUSTIN and fall, as per patient she was doing fine up until few days ago when she developed shortness of breath worse with exertion associated with cough productive of clear phlegm she has been feeling cold but denies any fevers, denies nausea vomiting no recent travel, has been compliant with all of her medication use 2 L of oxygen at home since was unable to walk short distances without being short of breath came to the emergency room and noted to have finger? 88% on 2 L, chest x-ray showed bilateral opacity infiltrate versus? atelectasis, renal function at baseline, no jeanna to have drop in hematocrit from 33.4-29.8, patient denies melena, hematochezia or hematemesis, patient will be admitted to medical floor with a diagnosis of acute on chronic hypoxic respiratory failure. hospital course 71-year-old female with a past medical history of hypertension, hyperlipidemia, diabetes, GERD, obesity, ALDO on CPAP, osteoarthritis, osteo chondroma left femur, COPD on 2 L of home oxygen; COVID-19 vaccinated, status post recent COVID infection and AGUSTIN presented to the hospital with a chief complaint of? shortness of breath worse with exertion associated with cough productive of clear phlegm, diagnosed to have acute on chronic hypoxic?respiratory failure likely related to post COVID sequelae and mild COPD exacerbation and acute on chronic anemia, patient admitted to medical floor was treated with DuoNeb and IV steroids or the course of hospitalization patient remained hemodynamically stable able to walk to the bathroom without hypoxia and distress in regard to drop in hematocrit iron studies were obtained direct consistent with anemia of inflammatory disease likely related to recent acute COVID infection, since patient seems to be at baseline she has been recommended to continue activity as tolerated at home to have outpatient follow-up with PCP for repeat hematocrit, noted to have low procalcitonin and have no new infiltrates on chest x-ray therefore does not require treatment with antibiotics patient also complain of generalized weakness likely multifactorial related to anemia, recent COVID infection, hypotension and polypharmacy therefore dose of trazodone reduced to 200 mg from 250 mg, she has been recommended to minimize use of hydroxyzine , lisinopril has been discontinued due to soft blood pressure. patient also noted to have lactic acidosis likely related to metformin and poor by mouth intake patient was treated with IV fluids lactic acid normalized metformin has been discontinued. obstructive sleep apnea continue CPAP diabetes mellitus type 2 with hyperglycemia continue insulin and low-dose glipizide added can further adjust dose of glipizide for better blood sugar control chronic kidney disease stage 3 stable Time Spent with Patient Time attestation: Total time spent providing and/or coordinating discharge services: Discharge coordination time: Greater than 30 minutes Quality: Stroke Does the patient have a stroke diagnosis?: No Physical Exam Verdana 4l Vital Signs: Verdana 4d Verdana 4d Vital Signs: Verdana 4d Verdana 4Bd Last Vital Signs Verdana 4d Public Service Officer New 4d Public Service Officer New 4d Temp 98.5 F 08/13/21 11:49 Public Service Officer New 4d Pulse 92 08/13/21 11:13 Public Service Officer New 4d Resp 18 08/13/21 11:49 BP 116/60 08/13/21 11:49 Pulse Ox 97 08/13/21 11:49 Oxygen Flow Rate 3 08/12/21 09:20 BMI result Body Mass Index 32.6 Const: Other: General? awake alert, no acute distress. HEENT pupil equal reactive to light and accommodation Neck? supple no JVD. CVS? regular rate rhythm, Respiratory lungs clear to auscultation, no respiratory distress Gastrointestinal abdomen soft, nontender, bowel sounds audible, Extremities no edema. Neuro nonfocal , speech clear. Skin no rash Psych appropriate affect DS: Data Data Completed and Pending Completed studies during hospitalization [Text1]: Procedures Replacement of Left Knee Joint with Synthetic Substitute, Uncemented, Open Approach (05/28/20) Labs on day of discharge: Laboratory Results - last 24 hr 08/12/21 08/12/2108/12/22 09:52 14:00 16:34 POC Glucose Lactic Acid 3.3 H* Lactic Acid F/U @ 2Hr 5.1 H* Lactic Acid F/U @ 4Hr Iron 52 TIBC 294 % Saturation 18 Unsat Iron Binding 242 Ferritin 109 08/12/21 08/12/21 08/12/21 17:19 19:02 19:47 POC Glucose 409 H* 401 H* Lactic Acid Lactic Acid F/U @ 2Hr Lactic Acid F/U @ 4Hr 5.0 H* Iron TIBC % Saturation Unsat Iron Binding Ferritin 08/12/21 08/13/21 08/13/21 23:16 01:38 03:54 POC Glucose Lactic Acid 2.9 H* Lactic Acid F/U @ 2Hr 2.4 H* Lactic Acid F/U @ 4Hr 1.8 Iron TIBC % Saturation Unsat Iron Binding Ferritin 08/13/21 08/13/21 07:37 11:10 POC Glucose 353 H* 273 H Lactic Acid Lactic Acid F/U @ 2Hr Lactic Acid F/U @ 4Hr Iron TIBC % Saturation Unsat Iron Binding Ferritin Discharge Plan Discharge Patient Disposition: Home Health Service Discharge Diagnosis: acute on chronic hypoxic respiratory failure generalized weakness Lactic acidosis Referrals: Shelbi Perez MD [Primary Care Provider] - 1 Week Discharge Medications: New dextromethorphan-guaifenesin 10-100 mg/5 mL Syrup 10 ml PO Q6H PRN (Reason: cough) Qty: 240 0RF glipizide 2.5 mg tablet extended release 24 hr 2.5 mg PO DAILY Qty: 30 0RF Continued montelukast 10 mg tablet 10 mg PO BEDTIME 90 Days Qty: 90 0RF (DME) lancets 28 gauge misc See Rx Instructions ea topical TID Qty: 100 3RF Rx Instructions: once a day (DME) Depend Underwear For Women S-M Misc See Rx Instructions .ROUTE .MEDSUPPLY Qty: 64 6RF Rx Instructions: 2 times a day as needed atorvastatin 80 mg tablet 80 mg PO DAILY 90 Days Qty: 90 0RF (DME) pen needle, diabetic [BD Ultra-Fine Mini Pen Needle] 31 gauge x 3/16 needle See Rx Instructions .Route Qty: 100 2RF Rx Instructions: Use to administer insulin twice daily (DME) FreeStyle Lite Strips Strip See Rx Instructions .ROUTE 0RF Rx Instructions: Use to check blood sugar twice daily and when having symptoms of hypo/hyperglycemia (DME) pen needle, diabetic 31 gauge x 3/16 needle See Rx Instructions ea subcut TID Qty: 100 1RF Rx Instructions: As directed (DME) AeroEclipse II Nebulizer Misc See Rx Instructions .ROUTE .MEDSUPPLY Qty: 1 0RF Rx Instructions: As directed hydroxyzine pamoate 25 mg capsule 1 cap PO BID 0RF fluticasone propionate 50 mcg/actuation spray,suspension 1 spray intranasal DAILY 0RF gabapentin 300 mg capsule 300 mg PO DAILY 0RF amlodipine [Norvasc] 5 mg tablet 5 mg PO DAILY 30 Days Qty: 30 0RF ropinirole 2 mg tablet 2 mg PO BID 0RF Levemir FlexTouch U-100 Insuln 100 unit/mL (3 mL) insulin pen 20 unit subcut DAILY 0RF hydroxyzine pamoate 25 mg capsule 25 mg PO DAILY PRN (Reason: Anxiety) 0RF gabapentin 300 mg capsule 900 mg PO BEDTIME 0RF Rx Instructions: pt takes 1 300mg in am and pm and 3 and bedtime trazodone 100 mg tablet 250 mg PO BEDTIME 0RF bupropion HCl 150 mg tablet extended release 24 hr 150 mg PO DAILY 0RF (DME) oxygen-air delivery systems Device See Rx Instructions .ROUTE .MEDSUPPLY Qty: 1 0RF Rx Instructions: As directed albuterol sulfate [ProAir HFA] 90 mcg/actuation HFA aerosol inhaler 2 puff inhalation Q4-6H PRN (Reason: shortness of breath or wheezing) 30 Days Qty: 8.5 2RF Changed trazodone 100 mg tablet 200 mg PO BEDTIME Qty: 0 0RF Discontinued lisinopril 5 mg tablet 5 mg PO DAILY 90 Days Qty: 90 0RF metformin 500 mg tablet 500 mg PO DAILY 0RF Discharge Orders: Discharge Order (Routine); Ordered 08/13/21 Ordered By: Em Smith Diet: diabetic diet and low fat, low cholesterol Activity on Discharge: As tolerated Stand Alone Forms: Patient Portal Discharge page Care Plan Goals: generalized weakness post COVID securely recommend to continue all home medications as before. Metformin due to lactic acidosis, reduce dose of trazo done to 200 mg at bedtime, stop lisinopril since noted to have soft blood pressures, you have been started on new medication glipizide 2.[address] of metformin follow diabetic diet ambulate as tolerated continue home oxygen as before. Health Concerns: COPD, chronic respiratory failure, diabetes mellitus continue home medications other than changes mentioned above Plan of Treatment: outpatient follow-up with primary care physician in 7-10 days. Assessment: per discharge summary
--- NOTE | 2021-08-13 14:19 | MHC.CM.PN ---
Patient has been medically cleared for dc to home today, with services. Patient is active with [facility], who has been notified of today's dc. IMM addressed with Patient this morning.
== END 2021-08-13 15:55 | disposition home health service (06) | DRG 190 ==
LOC: HO.ED 11:48 → HO.EDOVER 13:49 → HO.S3 16:02
PROVIDERS: Hospitalist; Nurse Practitioner Family; Admitting Provider Hospitalist; Emergency Provider Emergency Medicine Emergency Medical Services; PCP Internal Medicine; Visit Provider Hospitalist
DX: J44.1 Chronic obstructive pulmonary disease with (acute) exacerbation (principal); J96.21 Acute and chronic respiratory failure with hypoxia; E87.2 Acidosis; E66.9 Obesity, unspecified; Z99.81 Dependence on supplemental oxygen; Z20.822 Contact with and (suspected) exposure to COVID-19; D63.1 Anemia in chronic kidney disease; K21.9 Gastro-esophageal reflux disease without esophagitis; G47.33 Obstructive sleep apnea (adult) (pediatric); Z99.89 Dependence on other enabling machines and devices; E11.65 Type 2 diabetes mellitus with hyperglycemia; I12.9 Hypertensive chronic kidney disease with stage 1 through stage 4 chronic kidney disease, or unspecified chronic kidney disease; Z68.32 Body mass index [BMI] 32.0-32.9, adult; U09.9 Post COVID-19 condition, unspecified; N18.30 Chronic kidney disease, stage 3 unspecified; E11.22 Type 2 diabetes mellitus with diabetic chronic kidney disease; Z79.4 Long term (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 insulin; Z79.51 Long term (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 inhaled steroids; Z79.899 Other long term (current) drug therapy
CPT/HCPCS: 36415; 71046; 80048; 80076; 82728; 82803; 82947; 83540; 83605; 83880; 84145; 84484; 85025; 85610; 87040; 87635; 93005; 94640; 96365; 96366; 96375; 99285; J0692; J1650; J2920; J2930; J3475

== ENCOUNTER 2021-08-23 09:54 | Outpatient (REF) | payer MEDICARE, MEDICAID, SELFPAY ==
[2021-08-23 11:23] LABS: MANUAL DIFF FLAG NO
[2021-08-23 11:27] LABS: Basophils Percent Auto 0.1 % (0-2); Eosinophils Absolute Auto 0.2 X10*3/uL (0.0-0.4); Eosinophils Percent Auto 2.2 % (0-4); Hematocrit 30.4 % (37.0-47.0); Hemoglobin 9.4 g/dl (12.0-16.0); Imm Gran Abs Auto 0.08 X10*3/uL (0.00-0.03); Imm Gran Pct Auto 0.9 % (0.0-0.4); Lymphocytes Absolute Auto 1.8 X10*3/uL (1.2-4.9); Lymphocytes Percent Auto 18.8 % (20-40); Mean Corpuscular HGB Conc 30.9 g/dl (31.0-35.0); Mean Corpuscular Hemoglobin 28.2 pg (27.0-33.0); Mean Corpuscular Volume 91.3 fL (80.0-98.0); Mean Platelet Volume 11.6 fL (9.4-12.3); Monocytes Absolute Auto 0.8 X10*3/uL (0.1-1.2); Monocytes Percent Auto 8.5 % (2-11); Neutrophils Absolute Auto 6.5 x10*3/uL (2.0-8.3); Neutrophils Percent Auto 69.5 % (45-73); Platelet Count 228 X10*3/uL (160-400); Red Blood Count 3.33 X10*6/uL (4.20-5.50); Red Cell Distribution Width 13.4 % (11.0-16.0); White Blood Count 9.3 X10*3/uL (4.8-10.8)
[2021-08-23 11:37] LABS: Alanine Aminotransferase 17 U/L (0-31); Albumin Level 3.8 g/dL (3.5-5.0); Alkaline Phosphatase 38 U/L (39-117); Anion Gap 13 (12-20); Aspartate Amino Transferase 18 U/L (5-31); Bilirubin Total 0.3 mg/dL (0.0-1.0); Blood Urea Nitrogen 17 mg/dL (9-16); Calcium 9.5 mg/dL (8.4-10.2); Carbon Dioxide 31 mmol/L (22-29); Chloride 101 mmol/L (96-108); Estimated Glomerular Filt Rate 30; Glucose Random 184 mg/dL (60-115); Potassium 4.4 mmol/L (3.3-5.1); Sodium 141 mmol/L (135-145); Total Protein 6.3 g/dL (6.5-8.0)
== END 2021-08-23 09:55 | disposition home or self-care (01) ==
LOC: HO.HMGCLDS 09:54
PROVIDERS: Visit Provider Internal Medicine
DX: D64.9 Anemia, unspecified (principal); R79.89 Other specified abnormal findings of blood chemistry; E13.9 Other specified diabetes mellitus without complications; Z79.4 Long term (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 insulin
CPT/HCPCS: 36415; 80053; 85025

== ENCOUNTER → 2021-08-28 11:07 | Outpatient (BNVA) | payer MEDICARE, MEDICAID, SELFPAY | PROVIDERS: PCP Internal Medicine; Visit Provider Internal Medicine | DX: G47.33 Obstructive sleep apnea (adult) (pediatric) (principal); J30.9 Allergic rhinitis, unspecified; J98.4 Other disorders of lung; E66.01 Morbid (severe) obesity due to excess calories; R09.02 Hypoxemia; R53.1 Weakness; R05.9 Cough, unspecified; U09.9 Post COVID-19 condition, unspecified | CPT/HCPCS: 99212 ==

== ENCOUNTER 2021-09-25 09:54 | Outpatient (REF) | payer MEDICARE, MEDICAID, SELFPAY ==
--- NOTE | ~2021-09-25 | US_ITS ---
EXAMINATION: US RETROPERITONEAL LIMITED (RENAL ONLY) CLINICAL INFORMATION: Dorsalgia, unspecified. COMPARISON: CT abdomen and pelvis 01/29/2021. TECHNIQUE: Real-time imaging of the kidneys. FINDINGS: RIGHT KIDNEY: 8.8 x 3.5 x 4.4 cm (SAG x AP x TRV). The kidney is normal in size, contour, and echogenicity. Renal cortical thickness is normal. No calculi or focal parenchymal lesions. No hydronephrosis. LEFT KIDNEY: 9.2 x 3.6 x 4.9 cm (SAG x AP x TRV). The kidney is normal in size, contour, and echogenicity. Renal cortical thickness is normal. No focal parenchymal lesions or hydronephrosis. A 3 mm nonobstructing left lower pole renal stone. US/US renal BI IMPRESSION: 3 mm nonobstructing left lower pole renal stone.
--- NOTE | 2021-10-01 14:04 | P.HPGS_ITS ---
History of Present Illness History of Present Illness Date of Service: 10/01/21 Chief complaint: DORSALGIA Narrative: Mine Peacock is a 71 year old female who came tot ED this morning because of abdominal pain. This started at around 5AM this morning. She describes this as diffuse and not localized to one area of the abdomen. She denies nausea or vomitting. She has had BMs, and actually says she had one watery bowel movement yesterday and 3 others with wellformed stools. She denies diarrhea currently and seems to be passing flatus. She has had multiple abdominal surgeries. She has had sigmoid resection for diverticulitis, appendectomy, cholecystectomy and an ex lap in 2018 for SBO with lysis of adhesions done at that time. She does mention she has frequent urination. Review of Systems Constitutional: Constitutional: Reports chills (says she usually gets chills whenever she has abdominal pain) and Denies fever(s) Cardiovascular: Cardiovascular: Denies chest pain, Reports dyspnea and Reports dyspnea on exertion Respiratory: Respiratory: Reports cough, Reports dyspnea and Reports dyspnea on exertion Gastrointestinal: Gastrointestinal: Denies hematochezia and Denies change in bowel habits Genitourinary: Genitourinary: Denies hematuria Musculoskeletal: Musculoskeletal: Reports back pain and Denies limited range of motion Neurologic: Denies focal weakness and Denies convulsions Psychiatric: Psychiatric: Denies depression and Denies mood swings PMFSH Past Medical History Medical History Allergic rhinitis Anemia Arthritis CKD (chronic kidney disease) Constipation due to opioid therapy COPD (chronic obstructive pulmonary disease) COPD exacerbation CPAP (continuous positive airway pressure) dependence Diabetes Diabetes Elevated cholesterol GERD (gastroesophageal reflux disease) History of adrenal adenoma History of diverticulitis History of restless legs syndrome Hx SBO Hyperlipidemia Hypoxemia Morbid obesity Obesity (BMI 30-39.9) Obesity due to excess calories ALDO (obstructive sleep apnea) Osteoarthritis of left knee Osteochondroma of left femur Family History Family History Father HTN (hypertension) Diabetes mellitus Mother HTN (hypertension) Liver cancer Surgical History Surgical History H/O colonoscopy H/O excision of mass H/O exploratory laparotomy History of appendectomy History of arthroscopy of left knee History of cholecystectomy History of hysterectomy History of oophorectomy History of partial colectomy History of surgery Hx of cataract extraction Social History Social History 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: Significant Other 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 Other:: ex Housing: Apartment Are you a primary physician primary care sports medicine to a significant other at home: No Do you presently have visiting nurse or other home services: Yes ([facility]) Alcohol intake: unknown Patient Tobacco Use Status: Never used Tobacco Second Hand Smoke Exposure: Yes Advance Directives: Yes Advance Directives on File: Yes Advance Directives Date on File: 07/08/21 service: No Current occupational status: retired Meds Allergies Allergy/AdvReac Type Severity Reaction Status Date / Time adhesive tape [ADHESIVE TAPE] Allergy Intermediate RASH Verified 08/28/21 11:54 trimethobenzamide Allergy Mild NAUSEA Verified 08/28/21 11:54 [From TIGAN] environmental Allergy Intermediate Nasal Uncoded 08/28/21 11:54 congestion Active Medications: Current Medications Sodium Chloride (Ns) 1,000 mls @ 100 mls/hr IVCONT .Q10H RANGEL Morphine Sulfate (Morphine Sulfate 4 Mg/Ml Cartridge) 3 mg IVPUSH Q3H PRN; Protocol PRN Reason: Pain, Severe (Pain Scale 7-10) Sodium Chloride (0.9 % Sodium Chloride Flush 3 Ml Syringe) 3 ml IVFLUSH QSHIFT RANGEL Home Medications Medication Instructions Recorded Confirmed Last Taken Type bupropion HCl 150 mg 24 hr tablet, 150 mg PO DAILY 04/25/20 10/01/21 07/07/21 History extended release oxygen-air delivery systems #1 04/25/20 08/23/21 07/07/21 History gabapentin 300 mg capsule 900 mg PO BEDTIME cap 05/13/21 10/01/21 07/06/21 History gabapentin 300 mg capsule 300 mg PO DAILY 06/29/21 10/01/21 07/07/21 History hydroxyzine pamoate 25 mg capsule 1 cap PO BID 06/29/21 10/01/21 07/07/21 History blood sugar diagnostic (FreeStyle 08/09/21 08/23/21 Unknown History Lite Strips) insulin detemir U-100 100 unit/mL 20 unit SUBCUT DAILY 08/12/21 10/01/21 Unknown History (3 mL) subcutaneous pen (Levemir FlexTouch U-100 Insulin) aspirin 81 mg chewable tablet 81 mg PO DAILY 10/01/21 10/01/21 Unknown History lisinopril 5 mg tablet 1 tab PO DAILY 10/01/21 10/01/21 Unknown History trazodone 100 mg tablet 200 mg PO BEDTIME 10/01/21 10/01/21 Unknown History Physical Exam Const: Other: morbidly obese ,appears anxious General: no acute distress Orientation/consciousness: patient oriented x3 Neck: Neck: Yes no lymphadenopathy Resp: Auscultation: clear to auscultation bilaterally Cardio: Rhythm: regular rhythm GI: Other: tender diffusely Palpation (GI): Soft to palpation, Tenderness to palpation present (GI) and no guarding Neuro: General: patient oriented x3 Results Results Abdomen CT scan report/results: report reviewed and image reviewed CT scan - pelvis: report reviewed and image reviewed Assessment and Plan (1) Abdominal pain: Qualifiers: Abdominal location: generalized Qualified Code(s): R10.84 - Generalized abdominal pain Status: Acute I have reviewed her CT scan with Dr. Mcneal. There is no acute inflammatory process. There is some fecalization in one segment of the distal small bowel without other signs of obstruction. There may be some loops of small bowel that are adherent to the abdominal wall on the right sie Quality VTE VTE Risk Level:: Medical - moderate - high VTE Device Contraindication: N/A - Device Ordered VTE Drug Contraindication: N/A - Med Ordered
== END 2021-09-25 09:55 | disposition home or self-care (01) ==
LOC: HO.HMGCX 09:54
PROVIDERS: PCP Internal Medicine; Visit Provider Internal Medicine
DX: M54.9 Dorsalgia, unspecified (principal); Z87.442 Personal history of urinary calculi
CPT/HCPCS: 76775

== ENCOUNTER 2021-10-01 06:30 | Inpatient (IN) | payer MEDICARE, MEDICAID, SELFPAY ==
[2021-10-01] VITALS (9 sets, daily range): BP systolic 114–172; BP diastolic 46–90; PULSE 84–105; RESP 14–22; TEMP 36.3–37.3; O2SAT 97–100; BMI 90.8
--- NOTE | ~2021-10-01 | CT_ITS ---
EXAMINATION: CT ABDOMEN AND PELVIS WITHOUT CONTRAST CLINICAL INFORMATION: Diffuse abdominal pain, distention. Rule out obstruction. COMPARISON: Renal ultrasound 09/25/2021. CT abdomen and pelvis without contrast 09/29/2020. TECHNIQUE: Multidetector volumetric imaging was performed from the superior aspect of the liver through the pubic symphysis. Sagittal and coronal reformatted images were obtained on the technologist's workstation. This CT examination was performed using dose optimization techniques as appropriate, variously including the following: *Automated exposure control *Adjustment of mA and/or kV according to patient size (this includes techniques or standardized protocols for targeted exams where dose is matched to indication/reason for exam; i.e. extremities or head) *Use of iterative reconstruction technique DLP: 991 mGy-cm FINDINGS: LUNG BASES: There is platelike atelectasis in both lung bases. The heart size is normal. LIVER, GALLBLADDER, AND BILIARY TREE: The liver is enlarged in size measuring 20 cm in length. It has normal shape, counter and attenuation. No focal hepatic lesion or biliary ductal dilatation is present. The gallbladder is not visualized. PANCREAS: Unremarkable. SPLEEN: Unremarkable. ADRENAL GLANDS: Unremarkable. KIDNEYS AND URETERS: The kidneys are normal in size, shape, and attenuation. There is a 5 mm nonobstructive radiopaque calculi lower pole left kidney. No additional radiopaque calculi seen. There is no caliectasis or hydronephrosis. There is no perinephric stranding either. BLADDER: Unremarkable. GASTROINTESTINAL TRACT: There is scattered stool, diverticula and gas seen throughout the colon without any significant distention. There is previous surgical changes along the proximal sigmoid colon with anastomotic segment appearing patent. There is a soft tissue density adjacent to the anastomosis measuring 2.6 cm in a craniocaudad length on sagittal image 75/5 and axial image 67/3, question scar, recurrence or old diverticulum. An outpouching or diverticulum was seen on the previous CT exam 01/29/2021 image 68/3. The small bowel loops are normal caliber. Appendix is not visualized. There is no free air or free fluid. ABDOMINAL WALL: No significant hernia is appreciated. LYMPH NODES: No abnormal lymph nodes seen in the pelvis or the retroperitoneum. No abnormal mesenteric lymph nodes seen either. VASCULAR: Unremarkable. PELVIC VISCERA: Unremarkable. OSSEOUS STRUCTURES: Evaluation of the there are degenerative disc changes L5-S1 disc level with vacuum disc phenomena. Mild spondylosis seen. CT/CT abdomen pelvis wo con IMPRESSION: Anastomotic sigmoid colon is widely patent. However there is a likely diverticulum which was opacified is stool in the previous study is now is appears solid measuring 50 Hounsfield units. Whether this is fluid-filled R there is a recurrence of tumor is not known. Mild constipation is present without distention. There is colonic diverticulosis without diverticulitis.. No abnormal size lymph nodes seen. Mild hepatomegaly. Fleischner guidelines were followed.
[2021-10-01 07:28] LABS: MANUAL DIFF FLAG NO
--- NOTE | 2021-10-01 07:28 | ECG_ITS ---
Test Reason : ABDOMINAL PAIN Blood Pressure : / mmHG Vent. Rate : 082 BPM Atrial Rate : 082 BPM P-R Int : 166 ms QRS Dur : 084 ms QT Int : 390 ms P-R-T Axes : 055 016 034 degrees QTc Int : 455 ms Normal sinus rhythm Nonspecific ST abnormality Abnormal ECG When compared with ECG of 12-AUG-2021 10:02, No significant change was found Referred By: Osmar Linda Electronically Signed By:Isaías Denise
--- NOTE | 2021-10-01 07:31 | ED_ITS ---
HPI - Abdominal Pain General Chief Complaint: Abdominal Pain Stated Complaint: ABD PAIN Time Seen by Provider: 10/01/21 06:44 Source: patient Mode of arrival: EMS Limitations: no limitations History of Present Illness HPI narrative: 71-year-old female who presents emergency department for evaluation of abdominal pain, nausea and vomiting with symptoms beginning at 05:00 hours. Patient states that she was fine yesterday. This morning she woke up with severe, sharp, epigastric pain that radiates to her back. She states the pain came on suddenly. She states the pain is 10/10. The patient had associated nausea with dry heaves. She states that her abdomen does feel distended and bloated. She states that she has had a cough which is productive of white phlegm but denies chest pain. She does feel short of breath. She states she had chills but no fever. The patient did not have any diarrhea. She states she had 3 normal bowel movements yesterday. The patient has significant past surgical history with small bowel obstruction , partial colectomy, appendectomy, cholecystectomy, hysterectomy, 1 ovary removed. She has been vaccinated for COVID-19 with 3 Pfizer vaccinations. MD elicited complaint: abdominal pain Pertinent past history: other (Bowel obstruction requiring surgery in the past, appendectomy, cholecystectomy, hysterectomy, 1 ovary removed) Onset (ago): hour(s) (2) Pain Consistency: constant Location: epigastric Severity: severe Pain scale (0-10): 10 Quality: sharp Radiation: back Migration to: no migration Exacerbating factors: nothing Relieving factors: nothing Associated symptoms: nausea, vomiting and chills Related Data Home Medications Medication Instructions Recorded Confirmed bupropion HCl 150 mg 24 hr tablet, 150 mg PO DAILY 04/25/20 08/23/21 extended release oxygen-air delivery systems #1 04/25/20 08/23/21 gabapentin 300 mg capsule 900 mg PO BEDTIME cap 05/13/21 08/23/21 gabapentin 300 mg capsule 300 mg PO DAILY 06/29/21 08/23/21 hydroxyzine pamoate 25 mg capsule 1 cap PO BID 06/29/21 08/23/21 blood sugar diagnostic (FreeStyle 08/09/21 08/23/21 Lite Strips) insulin detemir U-100 100 unit/mL 20 unit SUBCUT DAILY 08/12/21 08/23/21 (3 mL) subcutaneous pen (Levemir FlexTouch U-100 Insulin) Previous Rx's Medication Instructions Recorded nebulizers (AeroEclipse II #1 ea 02/05/21 Nebulizer) albuterol sulfate 90 mcg/actuation 2 puff INHALATION Q4-6H PRN 30 05/13/21 aerosol inhaler (ProAir HFA) Days #8.5 g lancets 28 gauge #100 ea 06/24/21 montelukast 10 mg tablet 10 mg PO BEDTIME 90 Days #90 tab 06/24/21 diaper,brief,adult,disposable #64 ea 06/26/21 (Depend Underwear For Women S-M) atorvastatin 80 mg tablet 80 mg PO DAILY 90 Days #90 tab 08/07/21 pen needle, diabetic 31 gauge x #100 ea 08/09/2109/25 (BD Ultra-Fine Mini Pen Needle) pen needle, diabetic 31 gauge x #100 ea 08/12/21 316 glipizide 2.5 mg tablet, extended 2.5 mg PO DAILY #30 tab 08/13/21 release 24 hr trazodone 100 mg tablet 200 mg PO BEDTIME #0 tab 08/13/21 amlodipine 5 mg tablet (Norvasc) 5 mg PO DAILY 30 Days #90 tab 08/26/21 fluticasone propionate 50 1 spray INTRANASAL DAILY 30 Days 09/09/21 mcg/actuation nasal #16 g spray,suspension insulin detemir U-100 100 unit/mL 20 unit (0.2 mL) SUBCUT QAM 90 09/09/21 (3 mL) subcutaneous pen (Levemir Days #18 ml FlexTouch U-100 Insulin) ropinirole 2 mg tablet 2 mg PO BID 90 Days #180 tab 09/16/21 albuterol sulfate 1.25 mg/3 mL 2.5 mg (6 mL) INHALATION Q4-6H PRN 09/18/21 solution for nebulization 30 Days #90 ml Allergies Allergy/AdvReac Type Severity Reaction Status Date / Time adhesive tape [ADHESIVE TAPE] Allergy Intermediate RASH Verified 08/28/21 11:54 trimethobenzamide Allergy Mild NAUSEA Verified 08/28/21 11:54 [From TIGAN] environmental Allergy Intermediate Nasal Uncoded 08/28/21 11:54 congestion Review of Systems Review of Systems Yes all other systems are reviewed and are negative [facility]LY [facility] Past Medical History FOR[facility] Narrative: Social history: Patient lives with her , he has recent abdominal aneurysm surgery but is recovering. The patient denies tobacco use. She denies alcohol use. She denies drug use. Medical History Allergic rhinitis Anemia Arthritis CKD (chronic kidney disease) Constipation due to opioid therapy COPD (chronic obstructive pulmonary disease) COPD exacerbation CPAP (continuous positive airway pressure) dependence Diabetes Diabetes Elevated cholesterol GERD (gastroesophageal reflux disease) History of adrenal adenoma History of diverticulitis History of restless legs syndrome Hx SBO Hyperlipidemia Hypoxemia Morbid obesity Obesity (BMI 30-39.9) Obesity due to excess calories ALDO (obstructive sleep apnea) Osteoarthritis of left knee Osteochondroma of left femur Surgical History H/O colonoscopy H/O excision of mass H/O exploratory laparotomy History of appendectomy History of arthroscopy of left knee History of cholecystectomy History of hysterectomy History of oophorectomy History of partial colectomy History of surgery Hx of cataract extraction Family History Family History Father HTN (hypertension) Diabetes mellitus Mother HTN (hypertension) Liver cancer Social History Social History 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: Significant Other 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 Other:: ex Housing: Apartment Are you a primary grounds caretaker to a significant other at home: No Do you presently have visiting nurse or other home services: Yes ([facility]) Alcohol intake: unknown Patient Tobacco Use Status: Never used Tobacco Second Hand Smoke Exposure: Yes Advance Directives: Yes Advance Directives on File: Yes Advance Directives Date on File: 07/08/21 service: No Current occupational status: retired Physical Exam ED Vital Signs: Vital Signs - 24 hr 10/01/21 06:44 10/01/21 06:45 10/01/21 06:51 Temperature 98.0 F 97.9 F Pulse Rate 86 97 Respiratory Rate 16 22 H Blood Pressure 149/74 H 172/66 H Pulse Oximetry 97 99 10/01/21 07:38 10/01/21 09:56 10/01/21 12:13 Temperature 97.4 F Pulse Rate 86 91 84 Respiratory Rate 20 20 17 Blood Pressure 136/46 L 139/59 L 126/64 Pulse Oximetry 99 97 10/01/ 13:29 Temperature Pulse Rate 87 Respiratory Rate 14 Blood Pressure 149/54 H Pulse Oximetry 100 BMI result Body Mass Index 90.8 Const Other: Awake, alert, female, appears to be in moderate distress secondary to her pain, very pleasant cooperative, answers all questions appropriately HENMT Head: Yes normal to inspection, Yes normocephalic and Yes atraumatic Ears: external ears normal General nose exam: Normal external nose present Face and sinus: Yes normal facial exam Mouth: Normal oral and palatal mucosa present Throat: Yes posterior oropharynx normal Eyes General: appearance normal, both eyes and all related structures Pupils: Equal, round and reactive pupils present Neck Neck: Yes normal visual inspection, Yes no lymphadenopathy, Yes trachea midline and Yes supple Chest Chest palpation & inspection: normal inspection of the chest and normal palpation of entire chest wall Resp Effort & Inspection: normal respiratory effort and able to speak in complete sentences Auscultation: clear to auscultation bilaterally Cardio Rate: regular rate Rhythm: regular rhythm Heart sounds: S1 normal heart sound present, S2 normal heart sound present and no murmurs GI Other: Obese, moderate to severe mid epigastric tenderness, [id number] diffuse tenderness, she does appear to be distended, she has normoactive bowel sounds General: Yes no CVA tenderness Back/Spine/Pelvis Back: no CVA tenderness Skin General skin exam: no rashes or lesions noted Neuro Cranial nerves: Yes CN's II-XII intact bilaterally and Yes Equal, round and reactive pupils present Cognition (Neuro): normal cognition Motor exam (neuro): 5/5 motor strength present throughout Extrem General: Yes normal to inspection Psych Appearance: grossly normal Speech and movement: Normal speech and movement present Affect: normal affect Attitude: cooperative Thought process: Normal thought process present Thought content: Normal thought content present Course Course Course Narrative: 71-year-old female who presents emergency department for evaluation of sudden onset mid epigastric abdominal pain at 05:00 hours, the pain came on suddenly and was severe 10/10. Patient's vital signs revealed an elevated blood pressure of 149/74 otherwise unremarkable. The patient does have significant midepigastric tenderness as well as diffuse tenderness, she does appear to be distended. Patient has had multiple surgical procedures including a small-bowel obstruction and a partial colectomy. Differential includes was not limited to viral syndrome, small-bowel obstruction, perforated bowel, gastritis. I ordered a BMP, CBC, lactic acid, lipase, liver panel, PT/INR, PTT, troponin, urinalysis. CT scan of the abdomen pelvis with IV contrast will be obtained. Patient was ordered to get normal saline IV x1 L, Dilaudid 1 mg IV and Zofran 4 mg IV. 11 11: Laboratory evaluation: WBC normal 10,700, BUN and creatinine elevated at 19 and 1.73, this is chronic. LFTs, lipase normal. Urinalysis 2+ blood, negative leukocyte esterase positive nitrates. Microscopic 2 RBCs, 4 WBCs, 3+ bacteria 2+ squamous cells, do not think that this represents a urinary tract infection. Lactate elevated 2.2. COVID-[address] scan abdomen pelvis without IV contrast, radiology reading as follows: Anastomotic sigmoid colon is widely patent. However there is a likely diverticulum which was opacified is stool in the previous study is now is appears solid measuring 50 Hounsfield units. Whether this is fluid-filled R there is a recurrence of tumor is not known. Mild constipation is present without distention. There is colonic diverticulosis without diverticulitis. No abnormal size lymph nodes seen. Mild hepatomegaly. The patient continues to have significant abdominal pain and diffuse abdominal tenderness despite being treated with 2 doses of Dilaudid 1 mg IV. This time I do not have a clear etiology for her pain. I believe the patient should be admitted for pain management and further observation. I will discuss this with the covering surgeon. 1129: I did discuss the patient's case with the covering surgeon, Dr. Quintanilla as and he did agree to evaluate the patient here in the emergency department for further management. 1335: Patient was seen by the surgeon, Dr. Quintanilla and he did evaluate the patient. He will admit the patient to his service. At this time, we both agree that there does not seem to be in acute infectious process therefore the patient was not treated with antibiotics. Patient did require another dose of Dilaudid 1 mg IV for her pain. ? MDM - Abdominal Pain Lab Data Attestation: I reviewed the patient's lab results. Result diagrams: 10/01/21 07:26 10/01/21 07:26 Labs: Lab Results 10/01/21 10/01/2122 Range/Units 07:26 07:26 07:26 WBC 10.7 (4.8-10.8) X10*3/uL RBC 4.22 D (4.20-5.50) X10*6/uL Hgb 11.6 L D (12.0-16.0) g/dl Hct 38.0 D (37.0-47.0) % MCV 90.0 (80.0-98.0) fL MCH 27.5 (27.0-33.0) pg MCHC 30.5 L (31.0-35.0) g/dl RDW 12.9 (11.0-16.0) % Plt Count 201 (160-400) X10*3/uL MPV 12.0 (9.4-12.3) fL Immature Gran % (Auto) 0.4 (0.0-0.4) % Neut % (Auto) 72.9 (45-73) % Lymph % (Auto) 18.3 L (20-40) % [place] % (Auto) 5.7 (2-11) % Eos % (Auto) 2.4 (0-4) % Baso % (Auto) 0.3 (0-2) % Lymph # (Auto) 2.0 (1.2-4.9) X10*3/uL [place] # (Auto) 0.6 (0.1-1.2) X10*3/uL Eos # (Auto) 0.3 (0.0-0.4) X10*3/uL Baso # (Auto) 0.0 (0.0-0.2) X10*3/uL Abs Immat Gran (auto) 0.04 H (0.00-0.03) X10*3/uL Absolute Neuts (auto) 7.8 (2.0-8.3) x10*3/uL Absolute Nucleated RBC 0.000 (0.0-0.012) X10*3/uL Nucleated RBC % (auto) 0.0 (0.0-0.2) /100WBC PT (9.9-13.0) SEC INR (0.9-1.1) APTT (24.1-38.0) SEC Sodium 139 (135-145) mmol/L Potassium 4.6 (3.3-5.1) mmol/L Chloride 101 (96-108) mmol/L Carbon Dioxide 25 (22-29) mmol/L Anion Gap 18 (12-20) BUN 19 H (9-16) mg/dL Creatinine 1.73 H (0.5-1.4) mg/dL Estim Creat Clear Calc 52.5 Estimated GFR 29 Random Glucose 241 H (60-115) mg/dL Lactic Acid (0.5-2.0) mmol/L Lactic Acid F/U @ 2Hr (0.5-2.0) mmol/L Calcium 9.3 (8.4-10.2) mg/dL Total Bilirubin 0.4 (0.0-1.0) mg/dL Direct Bilirubin < 0.2 (0.0-0.5) mg/dL AST 17 (5-31) U/L ALT 18 (0-31) U/L Alkaline Phosphatase 39 (39-117) U/L Troponin I High Sens < 3.5 (<3.5-17.0) ng/L Total Protein 6.4 L (6.5-8.0) g/dL Albumin 4.0 (3.5-5.0) g/dL Lipase 18 (8-78) U/L Urine Color Urine Appearance Urine pH (5.0-8.0) Ur Specific [place] (1.005-1.025) Urine Protein (NEG-TRACE) MG/DL Urine Glucose (UA) (NEG) MG/DL Urine Ketones (NEG) MG/DL Urine Blood (NEG) Urine Nitrite (NEG) Ur Leukocyte Esterase (NEG) Urine RBC (0) /HPF Urine WBC (0-4) /HPF Ur Squamous Epith Cells /LPF Urine Bacteria /LPF Urine Mucus /LPF COVID-19 (JESSIKA) (Negative) COVID-19 Clin Com 10/01/21 10/01/21 10/01/21 Range/Units 07:47 08:20 08:20 WBC (4.8-10.8) X10*3/uL RBC (4.20-5.50) X10*6/uL Hgb (12.0-16.0) g/dl Hct (37.0-47.0) % MCV (80.0-98.0) fL MCH (27.0-33.0) pg MCHC (31.0-35.0) g/dl RDW (11.0-16.0) % Plt Count (160-400) X10*3/uL MPV (9.4-12.3) fL Immature Gran % (Auto) (0.0-0.4) % Neut % (Auto) (45-73) % Lymph % (Auto) (20-40) % [place] % (Auto) (2-11) % Eos % (Auto) (0-4) % Baso % (Auto) (0-2) % Lymph # (Auto) (1.2-4.9) X10*3/uL [place] # (Auto) (0.1-1.2) X10*3/uL Eos # (Auto) (0.0-0.4) X10*3/uL Baso # (Auto) (0.0-0.2) X10*3/uL Abs Immat Gran (auto) (0.00-0.03) X10*3/uL Absolute Neuts (auto) (2.0-8.3) x10*3/uL Absolute Nucleated RBC (0.0-0.012) X10*3/uL Nucleated RBC % (auto) (0.0-0.2) /100WBC PT 11.6 (9.9-13.0) SEC INR 1.0 (0.9-1.1) APTT 28.1 (24.1-38.0) SEC Sodium (135-145) mmol/L Potassium (3.3-5.1) mmol/L Chloride (96-108) mmol/L Carbon Dioxide (22-29) mmol/L Anion Gap (12-20) BUN (9-16) mg/dL Creatinine (0.5-1.4) mg/dL Estim Creat Clear Calc Estimated GFR Random Glucose (60-115) mg/dL Lactic Acid 2.2 H* (0.5-2.0) mmol/L Lactic Acid F/U @ 2Hr (0.5-2.0) mmol/L Calcium (8.4-10.2) mg/dL Total Bilirubin (0.0-1.0) mg/dL Direct Bilirubin (0.0-0.5) mg/dL AST (5-31) U/L ALT (0-31) U/L Alkaline Phosphatase (39-117) U/L Troponin I High Sens (<3.5-17.0) ng/L Total Protein (6.5-8.0) g/dL Albumin (3.5-5.0) g/dL Lipase (8-78) U/L Urine Color Urine Appearance Urine pH (5.0-8.0) Ur Specific [place] (1.005-1.025) Urine Protein (NEG-TRACE) MG/DL Urine Glucose (UA) (NEG) MG/DL Urine Ketones (NEG) MG/DL Urine Blood (NEG) Urine Nitrite (NEG) Ur Leukocyte Esterase (NEG) Urine RBC (0) /HPF Urine WBC (0-4) /HPF Ur Squamous Epith Cells /LPF Urine Bacteria /LPF Urine Mucus /LPF COVID-19 (JESSIKA) Negative (Negative) COVID-19 Clin Com See Note 10/01/21 10/01/21 Range/Units 09:59 11:34 WBC (4.8-10.8) X10*3/uL RBC (4.20-5.50) X10*6/uL Hgb (12.0-16.0) g/dl Hct (37.0-47.0) % MCV (80.0-98.0) fL MCH (27.0-33.0) pg MCHC (31.0-35.0) g/dl RDW (11.0-16.0) % Plt Count (160-400) X10*3/uL MPV (9.4-12.3) fL Immature Gran % (Auto) (0.0-0.4) % Neut % (Auto) (45-73) % Lymph % (Auto) (20-40) % [place] % (Auto) (2-11) % Eos % (Auto) (0-4) % Baso % (Auto) (0-2) % Lymph # (Auto) (1.2-4.9) X10*3/uL [place] # (Auto) (0.1-1.2) X10*3/uL Eos # (Auto) (0.0-0.4) X10*3/uL Baso # (Auto) (0.0-0.2) X10*3/uL Abs Immat Gran (auto) (0.00-0.03) X10*3/uL Absolute Neuts (auto) (2.0-8.3) x10*3/uL Absolute Nucleated RBC (0.0-0.012) X10*3/uL Nucleated RBC % (auto) (0.0-0.2) /100WBC PT (9.9-13.0) SEC INR (0.9-1.1) APTT (24.1-38.0) SEC Sodium (135-145) mmol/L Potassium (3.3-5.1) mmol/L Chloride (96-108) mmol/L Carbon Dioxide (22-29) mmol/L Anion Gap (12-20) BUN (9-16) mg/dL Creatinine (0.5-1.4) mg/dL Estim Creat Clear Calc Estimated GFR Random Glucose (60-115) mg/dL Lactic Acid (0.5-2.0) mmol/L Lactic Acid F/U @ 2Hr 1.6 (0.5-2.0) mmol/L Calcium (8.4-10.2) mg/dL Total Bilirubin (0.0-1.0) mg/dL Direct Bilirubin (0.0-0.5) mg/dL AST (5-31) U/L ALT (0-31) U/L Alkaline Phosphatase (39-117) U/L Troponin I High Sens (<3.5-17.0) ng/L Total Protein (6.5-8.0) g/dL Albumin (3.5-5.0) g/dL Lipase (8-78) U/L Urine Color YELLOW Urine Appearance HAZY Urine pH 5.5 (5.0-8.0) Ur Specific [place] 1.020 (1.005-1.025) Urine Protein NEG (NEG-TRACE) MG/DL Urine Glucose (UA) NEG (NEG) MG/DL Urine Ketones NEG (NEG) MG/DL Urine Blood 2+ H (NEG) Urine Nitrite POS H (NEG) Ur Leukocyte Esterase NEG (NEG) Urine RBC 0-2 (0) /HPF Urine WBC 1-4 (0-4) /HPF Ur Squamous Epith Cells 2+ /LPF Urine Bacteria 3+ /LPF Urine Mucus 1+ /LPF COVID-19 (JESSIKA) (Negative) COVID-19 Clin Com ECG Data Attestation: I personally reviewed and interpreted this ECG as follows: Interpretation: 0751: Normal sinus rhythm rate of 82, normal [place] interval, QRS duration and QTC interval, Q-wave in lead 3, no ST segment elevation, no ST segment depression, no PACs, no PVCs Discharge Plan Discharge Clinical Impression: Abdominal pain Qualifiers: Abdominal location: generalized Qualified Code(s): R10.84 - Generalized a bdominal pain Patient Disposition: Admitted As Inpatient
[2021-10-01 07:32] LABS: Basophils Percent Auto 0.3 % (0-2); Eosinophils Absolute Auto 0.3 X10*3/uL (0.0-0.4); Eosinophils Percent Auto 2.4 % (0-4); Hemoglobin 11.6 g/dl (12.0-16.0); Imm Gran Abs Auto 0.04 X10*3/uL (0.00-0.03); Imm Gran Pct Auto 0.4 % (0.0-0.4); Lymphocytes Percent Auto 18.3 % (20-40); Mean Corpuscular HGB Conc 30.5 g/dl (31.0-35.0); Mean Corpuscular Hemoglobin 27.5 pg (27.0-33.0); Monocytes Absolute Auto 0.6 X10*3/uL (0.1-1.2); Monocytes Percent Auto 5.7 % (2-11); Neutrophils Absolute Auto 7.8 x10*3/uL (2.0-8.3); Neutrophils Percent Auto 72.9 % (45-73); Platelet Count 201 X10*3/uL (160-400); Red Blood Count 4.22 X10*6/uL (4.20-5.50); Red Cell Distribution Width 12.9 % (11.0-16.0); White Blood Count 10.7 X10*3/uL (4.8-10.8)
[2021-10-01] MEDS: 0.9 % Sodium Chloride 1,000 ML 999 ML IV (07:39)
[2021-10-01] MEDS: HYDROmorphone HCl 1 MG/ML SYRINGE IVPUSH ×3 (07:39→13:38)
[2021-10-01] MEDS: ondansetron HCL 4 MG/2 ML VIAL IVPUSH (07:40)
[2021-10-01 07:46] LABS: Alanine Aminotransferase 18 U/L (0-31); Alkaline Phosphatase 39 U/L (39-117); Anion Gap 18 (12-20); Aspartate Amino Transferase 17 U/L (5-31); Bilirubin Direct < 0.2 mg/dL (0.0-0.5); Bilirubin Total 0.4 mg/dL (0.0-1.0); Blood Urea Nitrogen 19 mg/dL (9-16); Calcium 9.3 mg/dL (8.4-10.2); Carbon Dioxide 25 mmol/L (22-29); Chloride 101 mmol/L (96-108); Creatinine Clr Calc Pharmacy 52.5; Estimated Glomerular Filt Rate 29; Glucose Random 241 mg/dL (60-115); Lipase 18 U/L (8-78); Potassium 4.6 mmol/L (3.3-5.1); Sodium 139 mmol/L (135-145); Total Protein 6.4 g/dL (6.5-8.0)
[2021-10-01 07:52] LABS: Troponin-I High Sensitivity < 3.5 ng/L (<3.5-17.0)
[2021-10-01 08:08] LABS: COVID-19 Test Negative (Negative)
[2021-10-01 08:32] LABS: Prothrombin Time 11.6 SEC (9.9-13.0)
[2021-10-01 08:35] LABS: Partial Thromboplastin Time 28.1 SEC (24.1-38.0)
[2021-10-01 08:40] LABS: Lactic Acid 2.2 mmol/L (0.5-2.0)
[2021-10-01 10:11] LABS: Appearance Urine HAZY; Color Urine YELLOW; Glucose Urine UA NEG (NEG); Leukocyte Esterase Urine NEG (NEG); Nitrite Urine POS (NEG); PH 5.5 (5.0-8.0); UACC Culture Trigger YES; Urine Blood 2+ (NEG); Urine Ketones NEG (NEG); Urine Protein NEG (NEG-TRACE)
[2021-10-01 10:24] LABS: Reflex Lactate? Lactic Acid Added
[2021-10-01 10:27] LABS: Bacteria Urine 3+ /LPF; Mucus Urine 1+ /LPF; RBC Urine 0-2 /HPF (0); Squamous Epithelial Cell Urine 2+ /LPF
[2021-10-01 11:57] LABS: ~Lactic Acid-LAB USE ONLY 1.6 mmol/L (0.5-2.0)
[2021-10-01] MEDS: Lactated Ringers 1,000 ML 125 ML IVCONT (12:16)
--- NOTE | 2021-10-01 14:13 | PHA.MEDREC ---
Pharmacy Consult ? Medication Reconciliation Pharmacy has completed the medication reconciliation. Patient confirmed all medications. Reports she no longer takes metformin at home. Jennifer Mujica, PharmD
--- NOTE | 2021-10-01 14:16 | P.HPGS_ITS ---
History of Present Illness History of Present Illness Date of Service: 10/04/21 Chief complaint: abdominal pain Narrative: Mine Peacock is a 71 year old female who came tot ED this morning because of abdominal pain. This started at around 5AM this morning. She describes this as diffuse and not localized to one area of the abdomen. She denies nausea or vomitting. She has had BMs, and actually says she had one watery bowel movement yesterday and 3 others with wellformed stools. She denies diarrhea currently and seems to be passing flatus. She has had multiple abdominal surgeries. She has had sigmoid resection for diverticulitis, appendectomy, cholecystectomy and an ex lap in 2018 for SBO with lysis of adhesions done at that time. She does mention she has frequent urination. Review of Systems Constitutional: Constitutional: Reports chills (she says she usually gets chills whenever she has abdominal pain) and Denies fever(s) Cardiovascular: Cardiovascular: Denies chest pain, Reports dyspnea and Reports dyspnea on exertion Respiratory: Respiratory: Denies cough, Reports dyspnea and Reports dyspnea on exertion Gastrointestinal: Gastrointestinal: Denies hematochezia and Denies change in bowel habits Genitourinary: Genitourinary: Denies hematuria Musculoskeletal: Musculoskeletal: Reports back pain and Reports limited range of motion Neurologic: Denies focal weakness and Denies convulsions Psychiatric: Psychiatric: Denies depression and Denies mood swings [facility] Past Medical History Medical History (Updated 10/01/21 @ 16:16 by Rebecca Calloway NP) Allergic rhinitis Anemia Arthritis CKD (chronic kidney disease) Constipation due to opioid therapy COPD exacerbation CPAP (continuous positive airway pressure) dependence Diabetes Elevated cholesterol GERD (gastroesophageal reflux disease) History of adrenal adenoma History of diverticulitis History of restless legs syndrome Hx SBO Hyperlipidemia Hypoxemia Morbid obesity Obesity (BMI 30-39.9) ALDO (obstructive sleep apnea) Osteoarthritis of left knee Osteochondroma of left femur Family History Family History Father HTN (hypertension) Diabetes mellitus Mother HTN (hypertension) Liver cancer Surgical History Surgical History H/O colonoscopy H/O excision of mass H/O exploratory laparotomy History of appendectomy History of arthroscopy of left knee History of cholecystectomy History of hysterectomy History of oophorectomy History of partial colectomy History of surgery Hx of cataract extraction Social History Social History 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: Family 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 Other:: ex Housing: Apartment Are you a primary director of primary care to a significant other at home: No Do you presently have visiting nurse or other home services: Yes ([facility]) Alcohol intake: unknown Patient Tobacco Use Status: Never used Tobacco Second Hand Smoke Exposure: Yes Use of substances other than those prescribed or required for medical reasons: No Currently Displaying Signs/Symptoms of Drug Intoxication Withdrawal: No Any prior treatment program specific to substance use: No Have you been hit, kicked, punched, or otherwise hurt by someone within the past year? If so, by whom?: No Do you feel safe in your current relationship?: No Current Relationship Is there a partner from a previous relationship who is making you feel unsafe now?: No Are you made to feel afraid or neglected: No Spiritual Healthcare Practices: none Restorationism Healthcare Practices: Islam music Advance Directives: Yes Advance Directives on File: Yes Advance Directives Date on File: 07/08/21 Do you have thoughts of harming others: None Do you have a plan to hurt others: No Plan Recently lost weight without trying: No Eating poorly because of decreased appetite: No Nutrition Risks: No Nutritional Risk Patient : No : No Poor oral hygiene: No service: No Current occupational status: retired [employer] Allergies Allergy/AdvReac Type Severity Reaction Status Date / Time adhesive tape [ADHESIVE TAPE] Allergy Intermediate RASH Verified 08/28/21 11:54 trimethobenzamide Allergy Mild NAUSEA Verified 08/28/21 11:54 [From TIGAN] environmental Allergy Intermediate Nasal Uncoded 08/28/21 11:54 congestion Active Medications: Current Medications Lactated Ringer's (Lr) 1,000 mls @ 125 mls/hr IVCONT .Q8H RANGEL Last Admin: 10/01/21 12:16 Dose: 125 mls/hr Documented by: Home Medications Medication Instructions Recorded Confirmed Last Taken Type bupropion HCl 150 mg 24 hr tablet, 150 mg PO DAILY 04/25/20 10/01/21 07/07/21 History extended release oxygen-air delivery systems #1 04/25/20 08/23/21 07/07/21 History gabapentin 300 mg capsule 900 mg PO BEDTIME cap 05/13/21 10/01/21 07/06/21 History gabapentin 300 mg capsule 300 mg PO DAILY 06/29/21 10/01/21 07/07/21 History hydroxyzine pamoate 25 mg capsule 1 cap PO BID 06/29/21 10/01/21 07/07/21 History blood sugar diagnostic (FreeStyle 08/09/21 08/23/21 Unknown History Lite Strips) insulin detemir U-100 100 unit/mL 20 unit SUBCUT DAILY 08/12/21 10/01/21 Unknown History (3 mL) subcutaneous pen (Levemir FlexTouch U-100 Insulin) aspirin 81 mg chewable tablet 81 mg PO DAILY 10/01/21 10/01/21 Unknown History lisinopril 5 mg tablet 1 tab PO DAILY 10/01/21 10/01/21 Unknown History trazodone 100 mg tablet 200 mg PO BEDTIME 10/01/21 10/01/21 Unknown History Physical Exam Vital Signs: Vital Signs: Last Vital Signs Temp 97.4 F 10/01/21 07:38 Pulse 87 10/01/21 13:29 Resp 14 10/01/21 13:29 BP 149/54 H 10/01/21 13:29 Pulse Ox 100 10/01/21 13:29 Oxygen Flow Rate 2 10/01/21 06:44 BMI result Body Mass Index 90.8 Const: Other: morbidly obese General: no acute distress Orientation/consciousness: patient oriented x3 Neck: Neck: Yes no lymphadenopathy Resp: Auscultation: clear to auscultation bilaterally Cardio: Rhythm: regular rhythm GI: Other: diffusely tender Palpation (GI): Soft to palpation, Tenderness to palpation present (GI), no guarding and not rigid Neuro: General: patient oriented x3 Results Results Labs: Short CBC 10/01/21 Range/Units 07:26 WBC 10.7 (4.8-10.8) X10*3/uL Hgb 11.6 L D (12.0-16.0) g/dl Hct 38.0 D (37.0-47.0) % Plt Count 201 (160-400) X10*3/uL BMP 10/01/21 07:26 Sodium 139 Potassium 4.6 Chloride 101 Carbon Dioxide 25 BUN 19 H Creatinine 1.73 H Calcium 9.3 Liver Function 10/01/21 Range/Units 07:26 Total Bilirubin 0.4 (0.0-1.0) mg/dL Direct Bilirubin < 0.2 (0.0-0.5) mg/dL AST 17 (5-31) U/L ALT 18 (0-31) U/L Alkaline Phosphatase 39 (39-117) U/L Albumin 4.0 (3.5-5.0) g/dL Urine 10/01/21 Range/Units 09:59 Urine Color YELLOW Urine Appearance HAZY Urine pH 5.5 (5.0-8.0) Ur Specific [place] 1.020 (1.005-1.025) Urine Protein NEG (NEG-TRACE) MG/DL Urine Glucose (UA) NEG (NEG) MG/DL Abdomen CT scan report/results: report reviewed and image reviewed CT scan - pelvis: report reviewed and image reviewed Assessment and Plan (1) Abdominal pain: Qualifiers: Abdominal location: generalized Qualified Code(s): R10.84 - Generalized abdominal pain Status: Acute I have reviewed her CT scan with Dr. Mcneal. There is no acute inflammatory process. There is some fecalization in one segment of the distal small bowel without other signs of obstruction. There may be some loops of small bowel that are adherent to the abdominal wall on the right side that may be thickened. Again, there is no evidence of obstruction being caused by this at this time. The old sigmoid anastomosis appears patent, and there is air distally in the GI tract. It is uncertain at this time as to the exact etiology of her abdominal pain. Her lactate is at the upper limit of normal and this is likely due to having no oral intake since early this morning. She does not have leukocytosis or left shift. We will keep her NPO with IVF. I have consulted the Hospitalist in view of her multiple medical issues. She appears hemodynamically stable at this time. Quality Stroke Does the patient have a stroke diagnosis?: No VTE Prior VTE?: No VTE Risk Level:: Medical - moderate - high VTE Device Contraindication: N/A - Device Ordered VTE Drug Contraindication: N/A - Med Ordered Procedures Date of Service Date of Service: 10/01/21
[2021-10-01] MEDS: 0.9 % Sodium Chloride 1,000 ML 100 ML IVCONT (15:33)
--- NOTE | 2021-10-01 16:12 | P.CONHOSP_ITS ---
History of Present Illness Data of Consult Service Date: 10/01/21 <Rebecca Calloway NP - Last Filed: 10/01/21 17:05> Requesting physician: Juan Quintanilla <Rebecca Calloway NP - Last Filed: 10/01/21 17:05> Primary Care Provider: Unknown Physician <Rebecca Calloway NP - Last Filed: 10/01/21 17:05> HPI 71 year old women admitted by general surgery for abdominal pain that started at 0500 with no nausea or vomiting. She did have one watery stool yesterday. She is passing flatus. Her vital signs are stable, labs within acceptable limits. Abdominal and pelvic CT showed mild constipation without distension, diverticulosis without diverticulitis, anastomotic sigmoid colon with no obvious obstruction <Rebecca Calloway NP - Last Filed: 10/01/21 17:05> Review of Systems Review of Systems: Denies any recent fever chills or decrease in appetite respiratory denies any shortness of breath coverage production cardiovascular denies chest pain gastrointestinal See HPI genitourinary denies any dysuria frequency or hematuria musculoskeletal denies any joint pain or swelling neuropsych denies any weakness or seizures all other systems reviewed are negative <Rebecca Calloway NP - Last Filed: 10/01/21 17:05> [facility] Medical History: Medical History (Updated 10/01/21 @ 16:16 by Rebecca Calloway NP) Allergic rhinitis Anemia Arthritis CKD (chronic kidney disease) Constipation due to opioid therapy COPD exacerbation CPAP (continuous positive airway pressure) dependence Diabetes Elevated cholesterol GERD (gastroesophageal reflux disease) History of adrenal adenoma History of diverticulitis History of restless legs syndrome Hx SBO Hyperlipidemia Hypoxemia Morbid obesity Obesity (BMI 30-39.9) ALDO (obstructive sleep apnea) Osteoarthritis of left knee Osteochondroma of left femur <Rebecca Calloway NP - Last Filed: 10/01/21 17:05> Family History: Family History Father HTN (hypertension) Diabetes mellitus Mother HTN (hypertension) Liver cancer <Rebecca Calloway NP - Last Filed: 10/01/21 17:05> Surgical History: Surgical History H/O colonoscopy H/O excision of mass H/O exploratory laparotomy History of appendectomy History of arthroscopy of left knee History of cholecystectomy History of hysterectomy History of oophorectomy History of partial colectomy History of surgery Hx of cataract extraction <Rebecca Calloway NP - Last Filed: 10/01/21 17:05> Social History: Social History 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: Significant Other 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 Other:: ex Housing: Apartment Are you a primary customer care representative to a significant other at home: No Do you presently have visiting nurse or other home services: Yes ([facility]) Alcohol intake: unknown Patient Tobacco Use Status: Never used Tobacco Second Hand Smoke Exposure: Yes Currently Displaying Signs/Symptoms of Drug Intoxication Withdrawal: No Advance Directives: Yes Advance Directives on File: Yes Advance Directives Date on File: 07/08/21 service: No Current occupational status: retired <Rebecca Calloway NP - Last Filed: 10/01/21 17:05> Meds Allergies/Adverse reactions: Allergies Allergy/AdvReac Type Severity Reaction Status Date / Time adhesive tape [ADHESIVE TAPE] Allergy Intermediate RASH Verified 08/28/21 11:54 trimethobenzamide Allergy Mild NAUSEA Verified 08/28/21 11:54 [From TIGAN] environmental Allergy Intermediate Nasal Uncoded 08/28/21 11:54 congestion <Rebecca Calloway NP - Last Filed: 10/01/21 17:05> Active Medications: Current Medications Heparin Sodium (Porcine) (Heparin Sodium,Porcine 5,000 Unit/Ml Vial) 5,000 unit SUBCUT Q8H RANGEL Lactated Ringer's (Lr) 1,000 mls @ 125 mls/hr IVCONT .Q8H RANGEL Last Infusion: 10/01/21 15:40 Dose: Infused Documented by: Sodium Chloride (Ns) 1,000 mls @ 100 mls/hr IVCONT .Q10H RANGEL Last Admin: 10/01/21 15:33 Dose: 100 mls/hr Documented by: Sodium Chloride (Ns) 1,000 mls @ 100 mls/hr IVCONT .Q10H RANGEL Last Admin: 10/01/21 16:04 Dose: Not Given Documented by: Morphine Sulfate (Morphine Sulfate 4 Mg/Ml Cartridge) 3 mg IVPUSH Q3H PRN; Protocol PRN Reason: Pain, Severe (Pain Scale 7-10) Morphine Sulfate (Morphine Sulfate 4 Mg/Ml Cartridge) 3 mg IVPUSH Q3H PRN; Protocol PRN Reason: Pain, Severe (Pain Scale 7-10) Sodium Chloride (0.9 % Sodium Chloride Flush 3 Ml Syringe) 3 ml IVFLUSH [facility] Last Admin: 10/01/21 16:04 Dose: Not Given Documented by: Sodium Chloride (0.9 % Sodium Chloride Flush 3 Ml Syringe) 3 ml IVFLUSH [facility] Last Admin: 10/01/21 16:04 Dose: Not Given Documented by: <Rebecca Calloway NP - Last Filed: 10/01/21 17:05> Home medications: Home Medications Medication Instructions Recorded Confirmed Last Taken Type bupropion HCl 150 mg 24 hr tablet, 150 mg PO DAILY 04/25/20 10/01/21 07/07/21 History extended release oxygen-air delivery systems #1 04/25/20 08/23/21 07/07/21 History gabapentin 300 mg capsule 900 mg PO BEDTIME cap 05/13/21 10/01/21 07/06/21 History gabapentin 300 mg capsule 300 mg PO DAILY 06/29/21 10/01/21 07/07/21 History hydroxyzine pamoate 25 mg capsule 1 cap PO BID 06/29/21 10/01/21 07/07/21 History blood sugar diagnostic (FreeStyle 08/09/21 08/23/21 Unknown History Lite Strips) insulin detemir U-100 100 unit/mL 20 unit SUBCUT DAILY 08/12/21 10/01/21 Unknown History (3 mL) subcutaneous pen (Levemir FlexTouch U-100 Insulin) aspirin 81 mg chewable tablet 81 mg PO DAILY 10/01/21 10/01/21 Unknown History lisinopril 5 mg tablet 1 tab PO DAILY 10/01/21 10/01/21 Unknown History trazodone 100 mg tablet 200 mg PO BEDTIME 10/01/21 10/01/21 Unknown History <Rebecca Calloway NP - Last Filed: 10/01/21 17:05> Physical Exam Vital Signs and Narrative: Vital Signs: Last Vital Signs Temp 99.1 F 10/01/21 15:27 Pulse 91 10/01/21 15:27 Resp 14 10/01/21 15:27 BP 169/79 H 10/01/21 15:27 Pulse Ox 100 10/01/21 15:27 Oxygen Flow Rate 2 10/01/21 06:44 BMI result Body Mass Index 90.8 <Rebecca Calloway NP - Last Filed: 10/01/21 17:05> Appearing in no acute distress head is normocephalic atraumatic eyes pupils are PERRLA sclera is anicteric mouth throat mucous membranes are intact and moist neck is supple no lymphadenopathy, no JVD noted lung sounds are clear to auscultation heart regular rate rhythm, clear S1, S2 positive bowel sounds,diffuse tenderness neuro patient is alert x3, no focal deficits <Rebecca Calloway NP - Last Filed: 10/01/21 17:05> Results Labs CBC and Chem 7: : 10/02/21 06:03 10/02/21 06:03 <Rebecca Calloway NP - Last Filed: 10/01/21 17:05> Labs: Laboratory Results - last 24 hr 10/01/21 10/01/21 10/01/21 07:26 07:26 07:47 MCV 90.0 MCH 27.5 MCHC 30.5 L RDW 12.9 Plt Count 201 MPV 12.0 Immature Gran % (Auto) 0.4 Neut % (Auto) 72.9 Lymph % (Auto) 18.3 L [place] % (Auto) 5.7 Eos % (Auto) 2.4 Baso % (Auto) 0.3 Lymph # (Auto) 2.0 [place] # (Auto) 0.6 Eos # (Auto) 0.3 Baso # (Auto) 0.0 Abs Immat Gran (auto) 0.04 H Absolute Neuts (auto) 7.8 Absolute Nucleated RBC 0.000 Nucleated RBC % (auto) 0.0 PT INR APTT Anion Gap 18 Estim Creat Clear Calc 52.5 Estimated GFR 29 Random Glucose 241 H Lactic Acid Lactic Acid F/U @ 2Hr Calcium 9.3 Total Bilirubin 0.4 Direct Bilirubin < 0.2 AST 17 ALT 18 Alkaline Phosphatase 39 Total Protein 6.4 L Albumin 4.0 Lipase 18 Urine Color Urine Appearance Urine pH Ur Specific [place] Urine Protein Urine Glucose (UA) Urine Ketones Urine Blood Urine Nitrite Ur Leukocyte Esterase Urine RBC Urine WBC Ur Squamous Epith Cells Urine Bacteria Urine Mucus COVID-19 (JESSIKA) Negative COVID-19 Clin Com See Note 10/01/21 10/01/21 10/01/21 08:20 08:20 09:59 MCV MCH MCHC RDW Plt Count MPV Immature Gran % (Auto) Neut % (Auto) Lymph % (Auto) [place] % (Auto) Eos % (Auto) Baso % (Auto) Lymph # (Auto) [place] # (Auto) Eos # (Auto) Baso # (Auto) Abs Immat Gran (auto) Absolute Neuts (auto) Absolute Nucleated RBC Nucleated RBC % (auto) PT 11.6 INR 1.0 APTT 28.1 Anion Gap Estim Creat Clear Calc Estimated GFR Random Glucose Lactic Acid 2.2 H* Lactic Acid F/U @ 2Hr Calcium Total Bilirubin Direct Bilirubin AST ALT Alkaline Phosphatase Total Protein Albumin Lipase Urine Color YELLOW Urine Appearance HAZY Urine pH 5.5 Ur Specific [place] 1.020 Urine Protein NEG Urine Glucose (UA) NEG Urine Ketones NEG Urine Blood 2+ H Urine Nitrite POS H Ur Leukocyte Esterase NEG Urine RBC 0-2 Urine WBC 1-4 Ur Squamous Epith Cells 2+ Urine Bacteria 3+ Urine Mucus 1+ COVID-19 (JESSIKA) COVID-19 [facility] Com 10/01/21 11:34 MCV MCH MCHC RDW Plt Count MPV Immature Gran % (Auto) Neut % (Auto) Lymph % (Auto) [place] % (Auto) Eos % (Auto) Baso % (Auto) Lymph # (Auto) [place] # (Auto) Eos # (Auto) Baso # (Auto) Abs Immat Gran (auto) Absolute Neuts (auto) Absolute Nucleated RBC Nucleated RBC % (auto) PT INR APTT Anion Gap Estim Creat Clear Calc Estimated GFR Random Glucose Lactic Acid Lactic Acid F/U @ 2Hr 1.6 Calcium Total Bilirubin Direct Bilirubin AST ALT Alkaline Phosphatase Total Protein Albumin Lipase Urine Color Urine Appearance Urine pH Ur Specific [place] Urine Protein Urine Glucose (UA) Urine Ketones Urine Blood Urine Nitrite Ur Leukocyte Esterase Urine RBC Urine WBC Ur Squamous Epith Cells Urine Bacteria Urine Mucus COVID-19 (JESSIKA) COVID-19 Clin Com <Rebecca Calloway NP - Last Filed: 10/01/21 17:05> Imaging Radiologist's Impressions: Impressions Abdomen/Pelvis CT 10/01/21 08:41 IMPRESSION: Anastomotic sigmoid colon is widely patent. However there is a likely diverticulum which was opacified is stool in the previous study is now is appears solid measuring 50 Hounsfield units. Whether this is fluid-filled R there is a recurrence of tumor is not known. Mild constipation is present without distention. There is colonic diverticulosis without diverticulitis.. No abnormal size lymph nodes seen. Mild hepatomegaly. Fleischner guidelines were followed. <Rebecca Callowya NP - Last Filed: 10/01/21 17:05> Assessment and Plan (1) Abdominal pain: Qualifiers: Abdominal location: generalized Qualified Code(s): R10.84 - Generalized abdominal pain <Rebecca Calloway NP - Last Filed: 10/01/21 17:05> Status: Acute <Rebecca Calloway NP - Last Filed: 10/01/21 17:05> Plan 71 year old women admitted by general surgery with abdominal pain Abdominal pain. History of multiple abdominal surgeries No evidence obstruction on the CT scan, there may be some loops of small bowel that are adherent to the abdominal wall on the right side that may be thickened NPO IV fluids CKD3. Near baseline Avoid nephrotoxic agents Diabetes will convert home dose of Levimir to Lantus hold metformin SSI, POCs, ADA diet Hypertension Continue lisinopril and amlodipine Mental health. Continue home medications Neuropathy Continue gabapentin HLD continue HLD RLS continue ropinerole, gabapentin Morbid obesity.? Discussed the importance of weight management as this may contribute to worsening of other comorbidities. dvt ppx - heparin Attending Dr. Pavon code status - Full code <Rebecca Calloway NP - Last Filed: 10/01/21 17:05> Brief Operative Note Date of procedure: 10/02/21 <Teresita Clark CNP - Last Filed: 10/02/21 12:35> Procedure: Under sterile conditions, inserted 18G angio catheter to left external jugular, good blood return, flushed with 0.9% NaCl and secured. <Teresita Clark CNP - Last Filed: 10/02/21 12:35>
[2021-10-01] MEDS: Morphine Sulfate 4 MG/ML CARTRIDGE 3 MG IVPUSH (17:44)
--- NOTE | 2021-10-01 17:46 | MHC.CM.PN ---
CM met with admitted patient with bed assignment pending. A&Ox3. IMM reviewed and signed 10/01/2021@4620. Copy given and to medical records. HCP on file. HCP/son Lewis Pappas ([phone]). Lives with . No DME. [facility]. [employer]. Fully vaccinated and boosted with Pfizer. D/C plan is home with existing services. Pt to arrange transportation home.
--- NOTE | 2021-10-01 20:28 | PC.NURSE ---
Pt was sleeping soundly when I woke her to introduce myself and assess her. Pt yelled at me to give her her pain medications. I explained to patient she wasn't due just yet but by the time I finished my assessment, I could get her HS meds including her pain medication (Morphine). Pt was agreeable. IV fluids infusing as ordered. Pt is A&OX3, speech is clear. LS-CTA. No cough or sob. Pt snorts. Pt obese. BS-hypoactive. Last BM was yesterday, 09/30. Pt NPO. PP+, +LE edema. Will medicate patient and continue to monitor.
[2021-10-01] MEDS: traZODone HCL 100 MG TABLET 200 MG PO (20:39)
[2021-10-01] MEDS: Montelukast Sodium 10 MG TABLET PO (20:40)
[2021-10-01] MEDS: Gabapentin 300 MG CAPSULE 900 MG PO (20:41)
[2021-10-01] MEDS: hydrOXYzine HCL 25 MG TABLET PO (20:42)
[2021-10-01] MEDS: rOPINIRole HCL 2 MG TABLET PO (21:37)
[2021-10-01 21:53] LABS: Glucose, Whole Blood 145 mg/dL (60-115)
[2021-10-01] MEDS: oxyCODONE HCl Immed Release 5 MG TABLET 10 MG PO (22:26)
--- NOTE | 2021-10-01 22:41 | PC.NURSE ---
Pt c/o 03/22 abdominal pain. When going to give IV Morphine, pt told me her IV hurt. IV assessed and was infiltrated, area puffy. Several attempts to restart IV by [address] ordered PO Oxycodone prn-given.
[2021-10-02] VITALS: BP 145/52; PULSE 101; RESP 14; TEMP 36.3; O2SAT 98
[2021-10-02] MEDS: Prochlorperazine Edisylate 10 MG/2 ML VIAL 5 MG IM ×2 (00:26→21:17)
[2021-10-02 03:30] VITALS: BP 107/55; PULSE 100; RESP 16; TEMP 36.6; O2SAT 94
[2021-10-02] MEDS: oxyCODONE HCl Immed Release 5 MG TABLET 10 MG PO ×3 (03:52→18:32)
[2021-10-02 06:22] LABS: MANUAL DIFF FLAG NO
[2021-10-02 06:45] LABS: Anion Gap 14 (12-20); Blood Urea Nitrogen 18 mg/dL (9-16); Carbon Dioxide 29 mmol/L (22-29); Chloride 103 mmol/L (96-108); Creatinine Clr Calc Pharmacy 55.1; Estimated Glomerular Filt Rate 31; Glucose Random 173 mg/dL (60-115); Potassium 4.6 mmol/L (3.3-5.1); Sodium 141 mmol/L (135-145)
[2021-10-02 06:53] LABS: Basophils Percent Auto 0.2 % (0-2); Eosinophils Absolute Auto 0.2 X10*3/uL (0.0-0.4); Hematocrit 35.6 % (37.0-47.0); Hemoglobin 10.6 g/dl (12.0-16.0); Imm Gran Abs Auto 0.04 X10*3/uL (0.00-0.03); Imm Gran Pct Auto 0.4 % (0.0-0.4); Lymphocytes Absolute Auto 2.9 X10*3/uL (1.2-4.9); Lymphocytes Percent Auto 29.5 % (20-40); Mean Corpuscular HGB Conc 29.8 g/dl (31.0-35.0); Mean Corpuscular Hemoglobin 27.3 pg (27.0-33.0); Mean Corpuscular Volume 91.8 fL (80.0-98.0); Mean Platelet Volume 12.6 fL (9.4-12.3); Monocytes Percent Auto 10.3 % (2-11); Neutrophils Absolute Auto 5.7 x10*3/uL (2.0-8.3); Neutrophils Percent Auto 57.6 % (45-73); Platelet Count 209 X10*3/uL (160-400); Red Blood Count 3.88 X10*6/uL (4.20-5.50); White Blood Count 9.9 X10*3/uL (4.8-10.8)
[2021-10-02 08:15] VITALS: BP 101/44; PULSE 107; RESP 19; TEMP 37.5; O2SAT 90
[2021-10-02] MEDS: rOPINIRole HCL 2 MG TABLET PO ×2 (08:52→20:38)
[2021-10-02] MEDS: Atorvastatin Calcium 80 MG TABLET PO (08:52)
[2021-10-02] MEDS: buPROPion HCl XL 150 MG TAB.ER.24H PO (08:52)
[2021-10-02] MEDS: Gabapentin 300 MG CAPSULE PO (08:52)
[2021-10-02] MEDS: Heparin Sodium,Porcine 5,000 UNIT/ML VIAL 5000 UNIT SUBCUT ×2 (08:53→17:17)
[2021-10-02] MEDS: hydrOXYzine HCL 25 MG TABLET PO ×2 (08:53→20:39)
--- NOTE | 2021-10-02 09:34 | PM.PNGS ---
Subjective Subjective Date of Service: 10/02/21 Interval history: Has multiple complaints Lower abdominal pain, associated with urination She describes vague symptoms of urinary frequency well as difficulty She also describes back pain Physical Exam Vital Signs: Vital Signs: Last Vital Signs Temp 99.5 F 10/02/21 08:15 Pulse 107 H 10/02/21 08:15 Resp 19 10/02/21 08:15 BP 101/44 L 10/02/21 08:15 Pulse Ox 90 L 10/02/21 08:15 Oxygen Flow Rate 2 10/01/21 06:44 BMI result Body Mass Index 90.8 Const: Other: Very anxious looking General: no acute distress Resp: Effort & Inspection: normal respiratory effort Cardio: Rhythm: regular rhythm GI: Other: Vague tenderness diffusely Palpation (GI): Soft to palpation, not firm and no guarding Objective Data Active Medications Albuterol Sulfate (Albuterol Sulfate (0.042%) 1.25 Mg/3 Ml Vial.Neb) 2.5 mg INHALE Q4H PRN PRN Reason: shortness of breath or wheezing Albuterol Sulfate (Albuterol Sulfate 90 Mcg 8 Gm Inhaler) 2 puff INHALE Q4H PRN PRN Reason: shortness of breath or wheezing Amlodipine Besylate (Amlodipine Besylate 5 Mg Tablet) 5 mg PO DAILY [facility]; Protocol Last Admin: 10/02/21 08:55 Dose: Not Given Documented by: MONSE Non-Admin Reason: Decreased Blood Pressure Atorvastatin Calcium (Atorvastatin Calcium 80 Mg Tablet) 80 mg PO DAILY [facility] Last Admin: 10/02/21 08:52 Dose: 80 mg Documented by: MONSE Bupropion HCl (Bupropion Hcl Xl 150 Mg Tab.Er.24h) 150 mg PO DAILY [facility] Last Admin: 10/02/21 08:52 Dose: 150 mg Documented by: MONSE Fluticasone Propionate (Fluticasone Propionate Nasal 16 Gm [place]) 1 spray NOSTRIL-B DAILY [facility] Gabapentin (Gabapentin 300 Mg Capsule) 300 mg PO DAILY [facility] Last Admin: 10/02/21 08:52 Dose: 300 mg Documented by: MONSE Gabapentin (Gabapentin 300 Mg Capsule) 900 mg PO BEDTIME [facility] Last Admin: 10/01/21 20:41 Dose: 900 mg Documented by: KENDAL Heparin Sodium (Porcine) (Heparin Sodium,Porcine 5,000 Unit/Ml Vial) 5,000 unit SUBCUT Q8H [facility] Last Admin: 10/02/21 08:53 Dose: 5,000 unit Documented by: MONSE Hydroxyzine HCl (Hydroxyzine Hcl 25 Mg Tablet) 25 mg PO BID [facility] Last Admin: 10/02/21 08:53 Dose: 25 mg Documented by: MONSE Sodium Chloride (Ns) 1,000 mls @ 100 mls/hr IVCONT .Q10H [facility] Last Admin: 10/02/21 00:39 Dose: Not Given Documented by: GLEN Non-Admin Reason: Not In Room Ceftriaxone Sodium 1 gm/ (Sodium Chloride) 50 mls @ 100 mls/hr IV Q24H [facility] Insulin Glargine (Insulin Glargine,Hum.Rec.Anlog 100 Unit/Ml 10 Ml Vial) 14 unit SUBCUT DAILY [facility] Lisinopril (Lisinopril 5 Mg Tablet) 5 mg PO DAILY [facility]; Protocol Last Admin: 10/02/21 08:55 Dose: Not Given Documented by: MONSE Non-Admin Reason: Decreased Blood Pressure Montelukast Sodium (Montelukast Sodium 10 Mg Tablet) 10 mg PO BEDTIME [facility] Last Admin: 10/01/21 20:40 Dose: 10 mg Documented by: KENDAL Morphine Sulfate (Morphine Sulfate 4 Mg/Ml Cartridge) 3 mg IVPUSH Q3H PRN; Protocol PRN Reason: Pain, Severe (Pain Scale 7-10) Last Admin: 10/01/21 17:44 Dose: 3 mg Documented by: Oxycodone HCl (Oxycodone Hcl Immed Release 5 Mg Tablet) 10 mg PO Q4H PRN PRN Reason: Pain, Severe (Pain Scale 7-10) Last Admin: 10/02/21 08:52 Dose: 10 mg Documented by: MONSE Prochlorperazine Edisylate (Prochlorperazine Edisylate 10 Mg/2 Ml Vial) 5 mg IM Q6H PRN PRN Reason: Nausea and Vomiting Last Admin: 10/02/21 00:26 Dose: 5 mg Documented by: GLEN Ropinirole HCl (Ropinirole Hcl 2 Mg Tablet) 2 mg PO BID [facility] Last Admin: 10/02/21 08:52 Dose: 2 mg Documented by: MONSE Sodium Chloride (0.9 % Sodium Chloride Flush 3 Ml Syringe) 3 ml IVFLUSH QSAKFT [facility] Last Admin: 10/02/21 08:15 Dose: Not Given Documented by: MONSE Non-Admin Reason: No Access Sodium Chloride (0.9 % Sodium Chloride Flush 3 Ml Syringe) [facility] Last Admin: 10/02/21 08:15 Dose: Not Given Documented by: MONSE Non-Admin Reason: No Access Trazodone HCl (Trazodone Hcl 100 Mg Tablet) 200 mg PO BEDTIME [facility] Last Admin: 10/01/21 20:39 Dose: 200 mg Documented by: KENDAL Labs CBC & Chem 7: 10/02/21 06:03 10/02/21 06:03 Labs: Laboratory Results - last 24 hr 10/01/21 10/01/21 10/01/21 09:59 11:34 21:50 MCV MCH MCHC RDW Plt Count MPV Immature Gran % (Auto) Neut % (Auto) Lymph % (Auto) [place] % (Auto) Eos % (Auto) Baso % (Auto) Lymph # (Auto) [place] # (Auto) Eos # (Auto) Baso # (Auto) Abs Immat Gran (auto) Absolute Neuts (auto) Absolute Nucleated RBC Nucleated RBC % (auto) Anion Gap Estim Creat Clear Calc Estimated GFR POC Glucose 145 H Random Glucose Lactic Acid F/U @ 2Hr 1.6 Calcium Urine Color YELLOW Urine Appearance HAZY Urine pH 5.5 Ur Specific [place] 1.020 Urine Protein NEG Urine Glucose (UA) NEG Urine Ketones NEG Urine Blood 2+ H Urine Nitrite POS H Ur Leukocyte Esterase NEG Urine RBC 0-2 Urine WBC 1-4 Ur Squamous Epith Cells 2+ Urine Bacteria 3+ Urine Mucus 1+ 10/02/21 10/02/21 06:03 06:03 MCV 91.8 MCH 27.3 MCHC 29.8 L RDW 13.0 Plt Count 209 MPV 12.6 H Immature Gran % (Auto) 0.4 Neut % (Auto) 57.6 Lymph % (Auto) 29.5 [place] % (Auto) 10.3 Eos % (Auto) 2.0 Baso % (Auto) 0.2 Lymph # (Auto) 2.9 [place] # (Auto) 1.0 Eos # (Auto) 0.2 Baso # (Auto) 0.0 Abs Immat Gran (auto) 0.04 H Absolute Neuts (auto) 5.7 Absolute Nucleated RBC 0.000 Nucleated RBC % (auto) 0.0 Anion Gap 14 Estim Creat Clear Calc 55.1 Estimated GFR 31 POC Glucose Random Glucose 173 H Lactic Acid F/U @ 2Hr Calcium 9.0 Urine Color Urine Appearance Urine pH Ur Specific [place] Urine Protein Urine Glucose (UA) Urine Ketones Urine Blood Urine Nitrite Ur Leukocyte Esterase Urine RBC Urine WBC Ur Squamous Epith Cells Urine Bacteria Urine Mucus Procedures Date of Service Date of Service: 10/02/21 Progress Note: A&P Assessment and plan (1) Abdominal pain: Status: Acute Assessment and Plan: Has multiple vague complaints Reviewed CT scan with radiologist - no acute intra-abdominal process this time Although there is note of loop of small bowel that seems to be adherent to the abdominal wall on the right side Also has UTI - currently being treated Okay to have clear liquids Will need midline because of poor IV access Encouraged to get out of bed Discussed with hospitalist Fall Risk Details Current Medications: Current Medications Albuterol Sulfate (Albuterol Sulfate (0.042%) 1.25 Mg/3 Ml Vial.Neb) 2.5 mg INHALE Q4H PRN PRN Reason: shortness of breath or wheezing Albuterol Sulfate (Albuterol Sulfate 90 Mcg 8 Gm Inhaler) 2 puff INHALE Q4H PRN PRN Reason: shortness of breath or wheezing Amlodipine Besylate (Amlodipine Besylate 5 Mg Tablet) 5 mg PO DAILY [facility]; Protocol Last Admin: 10/02/21 08:55 Dose: Not Given Documented by: Atorvastatin Calcium (Atorvastatin Calcium 80 Mg Tablet) 80 mg PO DAILY [facility] Last Admin: 10/02/21 08:52 Dose: 80 mg Documented by: Bupropion HCl (Bupropion Hcl Xl 150 Mg Tab.Er.24h) 150 mg PO DAILY [facility] Last Admin: 10/02/21 08:52 Dose: 150 mg Documented by: Fluticasone Propionate (Fluticasone Propionate Nasal 16 Gm [place]) 1 spray NOSTRIL-B DAILY [facility] Gabapentin (Gabapentin 300 Mg Capsule) 300 mg PO DAILY [facility] Last Admin: 10/02/21 08:52 Dose: 300 mg Documented by: Gabapentin (Gabapentin 300 Mg Capsule) 900 mg PO BEDTIME [facility] Last Admin: 03/22/22 20:41 Dose: 900 mg Documented by: Heparin Sodium (Porcine) (Heparin Sodium,Porcine 5,000 Unit/Ml Vial) 5,000 unit SUBCUT Q8H [facility] Last Admin: 10/02/21 08:53 Dose: 5,000 unit Documented by: Hydroxyzine HCl (Hydroxyzine Hcl 25 Mg Tablet) 25 mg PO BID [facility] Last Admin: 10/02/21 08:53 Dose: 25 mg Documented by: Sodium Chloride (Ns) 1,000 mls @ 100 mls/hr IVCONT .Q10H [facility] Last Admin: 10/02/21 00:39 Dose: Not Given Documented by: Ceftriaxone Sodium 1 gm/ (Sodium Chloride) 50 mls @ 100 mls/hr IV Q24H [facility] Insulin Glargine (Insulin Glargine,Hum.Rec.Anlog 100 Unit/Ml 10 Ml Vial) 14 unit SUBCUT DAILY [facility] Lisinopril (Lisinopril 5 Mg Tablet) 5 mg PO DAILY [facility]; Protocol Last Admin: 10/02/21 08:55 Dose: Not Given Documented by: Montelukast Sodium (Montelukast Sodium 10 Mg Tablet) 10 mg PO BEDTIME [facility] Last Admin: 10/01/21 20:40 Dose: 10 mg Documented by: Morphine Sulfate (Morphine Sulfate 4 Mg/Ml Cartridge) 3 mg IVPUSH Q3H PRN; Protocol PRN Reason: Pain, Severe (Pain Scale 7-10) Last Admin: 10/01/21 17:44 Dose: 3 mg Documented by: Oxycodone HCl (Oxycodone Hcl Immed Release 5 Mg Tablet) 10 mg PO Q4H PRN PRN Reason: Pain, Severe (Pain Scale 7-10) Last Admin: 10/02/21 08:52 Dose: 10 mg Documented by: Prochlorperazine Edisylate (Prochlorperazine Edisylate 10 Mg/2 Ml Vial) 5 mg IM Q6H PRN PRN Reason: Nausea and Vomiting Last Admin: 10/02/21 00:26 Dose: 5 mg Documented by: Ropinirole HCl (Ropinirole Hcl 2 Mg Tablet) 2 mg PO BID [facility] Last Admin: 10/02/21 08:52 Dose: 2 mg Documented by: Sodium Chloride (0.9 % Sodium Chloride Flush 3 Ml Syringe) 3 ml IVFLUSH QSHIFT [facility] Last Admin: 10/02/21 08:15 Dose: Not Given Documented by: Sodium Chloride (0.9 % Sodium Chloride Flush 3 Ml Syringe) 3 ml IVFLUSH QSHIFT [facility] Last Admin: 10/02/21 08:15 Dose: Not Given Documented by: Trazodone HCl (Trazodone Hcl 100 Mg Tablet) 200 mg PO BEDTIME [facility] Last Admin: 10/01/21 20:39 Dose: 200 mg Documented by: Time Spent With Patient Time: Total time spent is greater than 50% in coordination of care (as documented) at patient's floor/unit and/or counseling patient: Quality Stroke Does the patient have a stroke diagnosis?: No VTE Prior VTE?: No VTE Risk Level:: Medical - moderate - high VTE Device Contraindication: N/A - Device Ordered VTE Drug Contraindication: N/A - Med Ordered
--- NOTE | 2021-10-02 10:24 | MHC.CM.PN ---
Female 71 DX AB pain. Patient lives at home with her spouse. She has [facility] services in place. DP home with resumption of services. The patient prefers to go home. She will accept a VNA if ordered by MD. She does not want to discharge to a facility for STR. Family will provide transportation home.
[2021-10-02 11:32] VITALS: BP 146/55; PULSE 109; RESP 18; TEMP 37.3; O2SAT 93
[2021-10-02] MEDS: 0.9 % Sodium Chloride 1,000 ML 100 ML IVCONT ×2 (12:49→21:55)
[2021-10-02] MEDS: cefTRIAXone sodium 1 GM in 0.9 % Sodium Chloride 50 ML IV (12:49)
[2021-10-02] MEDS: Fluticasone Propionate Nasal 16 GM SPRAY 1 SPRAY NOSTRIL-B (12:55)
--- NOTE | 2021-10-02 14:07 | HO.PM.IMPN ---
Subjective Subjective Date of Service: 10/02/21 Review of Systems Follow-up abdominal pain Denies nausea, vomiting, diarrhea Reports diffuse body pain Physical Exam Vital Signs: Vital Signs: Last Vital Signs Temp 99.2 F 10/02/21 11:32 Pulse 109 H 10/02/21 11:32 Resp 18 10/02/21 11:32 BP 146/55 H 10/02/21 11:32 Pulse Ox 93 10/02/21 11:32 Oxygen Flow Rate 2 10/01/21 06:44 BMI result Body Mass Index 90.8 Appearing in no acute distress lung sounds are clear to auscultation heart regular rate rhythm, clear S1, S2 positive bowel sounds, abdomen is soft, nontender neuro patient is alert x3, no focal deficits New EJ placed for IV access Objective Data Active Medications Albuterol Sulfate (Albuterol Sulfate (0.042%) 1.25 Mg/3 Ml Vial.Neb) 2.5 mg INHALE Q4H PRN PRN Reason: shortness of breath or wheezing Albuterol Sulfate (Albuterol Sulfate 90 Mcg 8 Gm Inhaler) 2 puff INHALE Q4H PRN PRN Reason: shortness of breath or wheezing Amlodipine Besylate (Amlodipine Besylate 5 Mg Tablet) 5 mg PO DAILY [facility]; Protocol Last Admin: 10/02/21 08:55 Dose: Not Given Documented by: MONSE Non-Admin Reason: Decreased Blood Pressure Atorvastatin Calcium (Atorvastatin Calcium 80 Mg Tablet) 80 mg PO DAILY [facility] Last Admin: 10/02/21 08:52 Dose: 80 mg Documented by: MONSE Bupropion HCl (Bupropion Hcl Xl 150 Mg Tab.Er.24h) 150 mg PO DAILY [facility] Last Admin: 10/02/21 08:52 Dose: 150 mg Documented by: MONSE Fluticasone Propionate (Fluticasone Propionate Nasal 16 Gm [place]) 1 spray NOSTRIL-B DAILY [facility] Last Admin: 10/02/21 12:55 Dose: 1 spray Documented by: MONSE Gabapentin (Gabapentin 300 Mg Capsule) 300 mg PO DAILY [facility] Last Admin: 10/02/21 08:52 Dose: 300 mg Documented by: MONSE Gabapentin (Gabapentin 300 Mg Capsule) 900 mg PO BEDTIME [facility] Last Admin: 10/01/21 20:41 Dose: 900 mg Documented by: KENDAL Heparin Sodium (Porcine) (Heparin Sodium,Porcine 5,000 Unit/Ml Vial) 5,000 unit SUBCUT Q8H [facility] Last Admin: 10/02/21 08:53 Dose: 5,000 unit Documented by: MONSE Hydroxyzine HCl (Hydroxyzine Hcl 25 Mg Tablet) 25 mg PO BID [facility] Last Admin: 10/02/21 08:53 Dose: 25 mg Documented by: MONSE Sodium Chloride (Ns) 1,000 mls @ 100 mls/hr IVCONT .Q10H [facility] Last Admin: 10/02/21 12:49 Dose: 100 mls/hr Documented by: MONSE Ceftriaxone Sodium 1 gm/ (Sodium Chloride) 50 mls @ 100 mls/hr IV Q24H [facility] Last Infusion: 10/02/21 13:19 Dose: 0 mls/hr Documented by: MONSE Insulin Glargine (Insulin Glargine,Hum.Rec.Anlog 100 Unit/Ml 10 Ml Vial) 14 unit SUBCUT DAILY [facility] Last Admin: 10/02/21 10:08 Dose: Not Given Documented by: MONSE Non-Admin Reason: NPO Lisinopril (Lisinopril 5 Mg Tablet) 5 mg PO DAILY [facility]; Protocol Last Admin: 10/02/21 08:55 Dose: Not Given Documented by: MONSE Non-Admin Reason: Decreased Blood Pressure Montelukast Sodium (Montelukast Sodium 10 Mg Tablet) 10 mg PO BEDTIME [facility] Last Admin: 10/01/21 20:40 Dose: 10 mg Documented by: KENDAL Morphine Sulfate (Morphine Sulfate 4 Mg/Ml Cartridge) 3 mg IVPUSH Q3H PRN; Protocol PRN Reason: Pain, Severe (Pain Scale 7-10) Last Admin: 10/01/21 17:44 Dose: 3 mg Documented by: Oxycodone HCl (Oxycodone Hcl Immed Release 5 Mg Tablet) 10 mg PO Q4H PRN PRN Reason: Pain, Severe (Pain Scale 7-10) Last Admin: 10/02/21 08:52 Dose: 10 mg Documented by: MONSE Prochlorperazine Edisylate (Prochlorperazine Edisylate 10 Mg/2 Ml Vial) 5 mg IM Q6H PRN PRN Reason: Nausea and Vomiting Last Admin: 10/02/21 00:26 Dose: 5 mg Documented by: GLEN Ropinirole HCl (Ropinirole Hcl 2 Mg Tablet) 2 mg PO BID [facility] Last Admin: 10/02/21 08:52 Dose: 2 mg Documented by: MONSE Sodium Chloride (0.9 % Sodium Chloride Flush 3 Ml Syringe) [facility] Last Admin: 10/02/21 08:15 Dose: Not Given Documented by: MONSE Non-Admin Reason: No Access Sodium Chloride (0.9 % Sodium Chloride Flush 3 Ml Syringe) [facility] Last Admin: 10/02/21 08:15 Dose: Not Given Documented by: MONSE Non-Admin Reason: No Access Trazodone HCl (Trazodone Hcl 100 Mg Tablet) 200 mg PO BEDTIME [facility] Last Admin: 10/01/21 20:39 Dose: 200 mg Documented by: KENDAL Labs CBC & Chem 7: 10/02/21 06:03 10/02/21 06:03 Labs: Laboratory Results - last 24 hr 10/01/21 10/02/21 10/02/21 21:50 06:03 06:03 MCV 91.8 MCH 27.3 MCHC 29.8 L RDW 13.0 Plt Count 209 MPV 12.6 H Immature Gran % (Auto) 0.4 Neut % (Auto) 57.6 Lymph % (Auto) 29.5 [place] % (Auto) 10.3 Eos % (Auto) 2.0 Baso % (Auto) 0.2 Lymph # (Auto) 2.9 [place] # (Auto) 1.0 Eos # (Auto) 0.2 Baso # (Auto) 0.0 Abs Immat Gran (auto) 0.04 H Absolute Neuts (auto) 5.7 Absolute Nucleated RBC 0.000 Nucleated RBC % (auto) 0.0 Anion Gap 14 Estim Creat Clear Calc 55.1 Estimated GFR 31 POC Glucose 145 H Random Glucose 173 H Calcium 9.0 Microbiology Microbiology Results: Microbiology 10/01/21 00:00 Urine Culture - Preliminary Urine clean catch - Urine almaguer top Gram negative alesha Assessment and Plan (1) Abdominal pain: Status: Acute Plan 71 year old women admitted by general surgery with abdominal pain Abdominal pain.? History of multiple abdominal surgeries No evidence obstruction on the CT scan, there may be some loops of small bowel that are adherent to the abdominal wall on the right side that may be thickened NPO IV fluids, EJ placed Pain management CKD3.? Near baseline Avoid nephrotoxic agents Diabetes will convert home dose of Levimir to Lantus hold metformin SSI, POCs, ADA diet Hypertension Continue lisinopril and amlodipine Mental health.? Continue home medications Neuropathy Continue gabapentin HLD continue HLD RLS continue ropinerole, gabapentin Morbid obesity.? Discussed the importance of weight management as this may contribute to worsening of other comorbidities. dvt ppx - heparin Attending Dr. Tang code status - Full code Quality Stroke Does the patient have a stroke diagnosis?: No VTE Prior VTE?: No VTE Risk Level:: Medical - moderate - high VTE Device Contraindication: N/A - Device Ordered VTE Drug Contraindication: N/A - Med Ordered
[2021-10-02] MEDS: 0.9 % Sodium Chloride Flush 3 ML SYRINGE IVFLUSH (15:15)
[2021-10-02 16:00] VITALS: BP 128/60; PULSE 99; RESP 20; TEMP 36.7; O2SAT 96
[2021-10-02 16:47] LABS: Glucose, Whole Blood 125 mg/dL (60-115)
[2021-10-02 19:44] VITALS: BP 180/69; PULSE 97; RESP 20; TEMP 36.6; O2SAT 96
[2021-10-02] MEDS: Gabapentin 300 MG CAPSULE 900 MG PO (20:38)
[2021-10-02] MEDS: traZODone HCL 100 MG TABLET 200 MG PO (20:39)
[2021-10-02] MEDS: Montelukast Sodium 10 MG TABLET PO (20:39)
[2021-10-02 20:40] LABS: Glucose, Whole Blood 121 mg/dL (60-115)
[2021-10-03] VITALS (7 sets, daily range): BP systolic 117–137; BP diastolic 44–56; PULSE 81–95; RESP 15–20; TEMP 36.3–36.8; O2SAT 91–98
[2021-10-03] MEDS: oxyCODONE HCl Immed Release 5 MG TABLET 10 MG PO ×2 (00:13→08:44)
[2021-10-03] MEDS: Heparin Sodium,Porcine 5,000 UNIT/ML VIAL 5000 UNIT SUBCUT ×3 (00:15→15:02)
[2021-10-03] MEDS: Morphine Sulfate 4 MG/ML CARTRIDGE 3 MG IVPUSH ×2 (03:01→20:38)
[2021-10-03 07:57] LABS: Glucose, Whole Blood 107 mg/dL (60-115)
--- NOTE | 2021-10-03 08:19 | P.PNGS_ITS ---
Subjective Subjective Date of Service: 10/03/21 Interval history: Complaints of frequent urination, dysuria Says she is unable to control voiding because of this frequent urination No nausea or vomiting Hungry and wants to try food Physical Exam Vital Signs: Vital Signs: Last Vital Signs Temp 97.7 F 10/03/21 07:49 Pulse 88 10/03/21 07:49 Resp 19 10/03/21 07:49 BP 127/47 L 10/03/21 07:49 Pulse Ox 97 10/03/21 07:49 Oxygen Flow Rate 2 10/01/21 06:44 BMI result Body Mass Index 90.8 Const: Other: A little anxious General: comfortable and no acute distress Resp: Other: On O2 by nasal cannula Effort & Inspection: normal respiratory effort Cardio: Rate: regular rate GI: Palpation (GI): Soft to palpation, not firm, nontender and no guarding Objective Data Active Medications Albuterol Sulfate (Albuterol Sulfate (0.042%) 1.25 Mg/3 Ml Vial.Neb) 2.5 mg INHALE Q4H PRN PRN Reason: shortness of breath or wheezing Albuterol Sulfate (Albuterol Sulfate 90 Mcg 8 Gm Inhaler) 2 puff INHALE Q4H PRN PRN Reason: shortness of breath or wheezing Amlodipine Besylate (Amlodipine Besylate 5 Mg Tablet) 5 mg PO DAILY [facility]; Prot ocol Last Admin: 10/02/21 08:55 Dose: Not Given Documented by: MONSE Non-Admin Reason: Decreased Blood Pressure Atorvastatin Calcium (Atorvastatin Calcium 80 Mg Tablet) 80 mg PO DAILY [facility] Last Admin: 10/02/21 08:52 Dose: 80 mg Documented by: MONSE Bupropion HCl (Bupropion Hcl Xl 150 Mg Tab.Er.24h) 150 mg PO DAILY [facility] Last Admin: 10/02/21 08:52 Dose: 150 mg Documented by: MONSE Dextrose (Dextrose 50 % 25 Gm/50 Ml Vial) 25 gm IVPUSH Q15M PRN; Protocol PRN Reason: per Hypoglycemia Standing Ord. Fluticasone Propionate (Fluticasone Propionate Nasal 16 Gm [place]) 1 spray NOSTRIL-B DAILY [facility] Last Admin: 10/02/21 12:55 Dose: 1 spray Documented by: MONSE Gabapentin (Gabapentin 300 Mg Capsule) 300 mg PO DAILY [facility] Last Admin: 10/02/21 08:52 Dose: 300 mg Documented by: MONSE Gabapentin (Gabapentin 300 Mg Capsule) 900 mg PO BEDTIME [facility] Last Admin: 10/02/21 20:38 Dose: 900 mg Documented by: BIRGIT Glucose (Glucose Gel 15 Gm Gel..Gram.) 15 gm PO Q15M PRN; Protocol PRN Reason: per Hypoglycemia Standing Ord. Heparin Sodium (Porcine) (Heparin Sodium,Porcine 5,000 Unit/Ml Vial) 5,000 unit SUBCUT Q8H [facility] Last Admin: 10/03/21 00:15 Dose: 5,000 unit Documented by: ROSEY Hydroxyzine HCl (Hydroxyzine Hcl 25 Mg Tablet) 25 mg PO BID [facility] Last Admin: 10/02/21 20:39 Dose: 25 mg Documented by: BIRGIT Sodium Chloride (Ns) 1,000 mls @ 100 mls/hr IVCONT .Q10H [facility] Last Admin: 10/02/21 21:55 Dose: 100 mls/hr Documented by: BIRGIT Ceftriaxone Sodium 1 gm/ (Sodium Chloride) 50 mls @ 100 mls/hr IV Q24H [facility] Last Infusion: 10/02/21 13:19 Dose: 0 mls/hr Documented by: MONSE Insulin Glargine (Insulin Glargine,Hum.Rec.Anlog 100 Unit/Ml 10 Ml Vial) 14 unit SUBCUT DAILY [facility] Last Admin: 10/02/21 10:08 Dose: Not Given Documented by: MONSE Non-Admin Reason: NPO Insulin Human Lispro (Insulin Lispro 100 Unit/Ml 3 Ml Vial) 0 unit SUBCUT QIDACHS [facility]; Protocol Last Admin: 10/03/21 08:06 Dose: Not Given Documented by: ANNA Non-Admin Reason: No Insulin Coverage Lisinopril (Lisinopril 5 Mg Tablet) 5 mg PO DAILY [facility]; Protocol Last Admin: 10/02/21 08:55 Dose: Not Given Documented by: MONSE Non-Admin Reason: Decreased Blood Pressure Montelukast Sodium (Montelukast Sodium 10 Mg Tablet) 10 mg PO BEDTIME [facility] Last Admin: 10/02/21 20:39 Dose: 10 mg Documented by: BIRGIT Morphine Sulfate (Morphine Sulfate 4 Mg/Ml Cartridge) 3 mg IVPUSH Q3H PRN; Pr otocol PRN Reason: Pain, Severe (Pain Scale 7-10) Last Admin: 10/03/21 03:01 Dose: 3 mg Documented by: ROSEY Oxycodone HCl (Oxycodone Hcl Immed Release 5 Mg Tablet) 10 mg PO Q4H PRN PRN Reason: Pain, Severe (Pain Scale 7-10) Last Admin: 10/03/21 00:13 Dose: 10 mg Documented by: ROSEY Prochlorperazine Edisylate (Prochlorperazine Edisylate 10 Mg/2 Ml Vial) 5 mg IM Q6H PRN PRN Reason: Nausea and Vomiting Last Admin: 10/02/21 21:17 Dose: 5 mg Documented by: BIRGTI Ropinirole HCl (Ropinirole Hcl 2 Mg Tablet) 2 mg PO BID [facility] Last Admin: 10/02/21 20:38 Dose: 2 mg Documented by: BIRGIT Sodium Chloride (0.9 % Sodium Chloride Flush 3 Ml Syringe) 3 ml IVFLUSH [facility] Last Admin: 10/03/21 00:15 Dose: Not Given Documented by: ROSEY Non-Admin Reason: IV Running Sodium Chloride (0.9 % Sodium Chloride Flush 3 Ml Syringe) 3 ml IVFLUSH [facility] Last Admin: 10/03/21 00:15 Dose: Not Given Documented by: ROSEY Non-Admin Reason: IV Running Trazodone HCl (Trazodone Hcl 100 Mg Tablet) 200 mg PO BEDTIME [facility] Last Admin: 10/02/21 20:39 Dose: 200 mg Documented by: BIRGIT Labs CBC & Chem 7: 10/02/21 06:03 10/02/21 06:03 Labs: Laboratory Results - last 24 hr 10/02/21 10/02/21 10/03/21 16:42 20:36 07:53 POC Glucose 125 H 121 H 107 Microbiology Microbiology Results: Microbiology 10/01/21 00:00 Urine Culture - Preliminary Urine clean catch - Urine almaguer top Gram negative alesha Procedures Date of Service Date of Service: 10/03/21 Progress Note: A&P Assessment and plan (1) Abdominal pain: Status: Acute Assessment and Plan: Main complaint now is frequent urination with dysuria Will advance diet Encouraged to get out of bed Hospitalist following for multiple medical issues Abdominal exam benign WBC normal, creatinine slightly elevated Fall Risk Details Current Medications: Current Medications Albuterol Sulfate (Albuterol Sulfate (0.042%) 1.25 Mg/3 Ml Vial.Neb) 2.5 mg INHALE Q4H PRN PRN Reason: shortness of breath or wheezing Albuterol Sulfate (Albuterol Sulfate 90 Mcg 8 Gm Inhaler) 2 puff INHALE Q4H PRN PRN Reason: shortness of breath or wheezing Amlodipine Besylate (Amlodipine Besylate 5 Mg Tablet) 5 mg PO DAILY [facility]; Protocol Last Admin: 10/02/21 08:55 Dose: Not Given Documented by: Atorvastatin Calcium (Atorvastatin Calcium 80 Mg Tablet) 80 mg PO DAILY [facility] Last Admin: 10/02/21 08:52 Dose: 80 mg Documented by: Bupropion HCl (Bupropion Hcl Xl 150 Mg Tab.Er.24h) 150 mg PO DAILY [facility] Last Admin: 10/02/21 08:52 Dose: 150 mg Documented by: Dextrose (Dextrose 50 % 25 Gm/50 Ml Vial) 25 gm IVPUSH Q15M PRN; Protocol PRN Reason: per Hypoglycemia Standing Ord. Fluticasone Propionate (Fluticasone Propionate Nasal 16 Gm [place]) 1 spray NOSTRIL-B DAILY [facility] Last Admin: 10/02/21 12:55 Dose: 1 spray Documented by: Gabapentin (Gabapentin 300 Mg Capsule) 300 mg PO DAILY [facility] Last Admin: 10/02/21 08:52 Dose: 300 mg Documented by: Gabapentin (Gabapentin 300 Mg Capsule) 900 mg PO BEDTIME [facility] Last Admin: 10/02/21 20:38 Dose: 900 mg Documented by: Glucose (Glucose Gel 15 Gm Gel..Gram.) 15 gm PO Q15M PRN; Protocol PRN Reason: per Hypoglycemia Standing Ord. Heparin Sodium (Porcine) (Heparin Sodium,Porcine 5,000 Unit/Ml Vial) 5,000 unit SUBCUT Q8H [facility] Last Admin: 10/03/21 00:15 Dose: 5,000 unit Documented by: Hydroxyzine HCl (Hydroxyzine Hcl 25 Mg Tablet) 25 mg PO BID [facility] Last Admin: 10/02/21 20:39 Dose: 25 mg Documented by: Sodium Chloride (Ns) 1,000 mls @ 100 mls/hr IVCONT .Q10H [facility] Last Admin: 10/02/21 21:55 Dose: 100 mls/hr Documented by: Ceftriaxone Sodium 1 gm/ (Sodium Chloride) 50 mls @ 100 mls/hr IV Q24H [facility] Last Infusion: 10/02/21 13:19 Dose: Infused Documented by: Insulin Glargine (Insulin Glargine,Hum.Rec.Anlog 100 Unit/Ml 10 Ml Vial) 14 unit SUBCUT DAILY [facility] Last Admin: 10/02/21 10:08 Dose: Not Given Documented by: Insulin Human Lispro (Insulin Lispro 100 Unit/Ml 3 Ml Vial) 0 unit SUBCUT QIDACHS [facility]; Protocol Last Admin: 10/03/21 08:06 Dose: Not Given Documented by: Lisinopril (Lisinopril 5 Mg Tablet) 5 mg PO DAILY [facility]; Protocol Last Admin: 10/02/21 08:55 Dose: Not Given Documented by: Montelukast Sodium (Montelukast Sodium 10 Mg Tablet) 10 mg PO BEDTIME [facility] Last Admin: 10/02/21 20:39 Dose: 10 mg Documented by: Morphine Sulfate (Morphine Sulfate 4 Mg/Ml Cartridge) 3 mg IVPUSH Q3H PRN; Protocol PRN Reason: Pain, Severe (Pain Scale 7-10) Last Admin: 10/03/21 03:01 Dose: 3 mg Documented by: Oxycodone HCl (Oxycodone Hcl Immed Release 5 Mg Tablet) 10 mg PO Q4H PRN PRN Reason: Pain, Severe (Pain Scale 7-10) Last Admin: 10/03/21 00:13 Dose: 10 mg Documented by: Prochlorperazine Edisylate (Prochlorperazine Edisylate 10 Mg/2 Ml Vial) 5 mg IM Q6H PRN PRN Reason: Nausea and Vomiting Last Admin: 10/02/21 21:17 Dose: 5 mg Documented by: Ropinirole HCl (Ropinirole Hcl 2 Mg Tablet) 2 mg PO BID [facility] Last Admin: 10/02/21 20:38 Dose: 2 mg Documented by: Sodium Chloride (0.9 % Sodium Chloride Flush 3 Ml Syringe) 3 ml IVFLUSH QSHIFT [facility] Last Admin: 10/03/21 00:15 Dose: Not Given Documented by: Sodium Chloride (0.9 % Sodium Chloride Flush 3 Ml Syringe) 3 ml IVFLUSH QSHIFT [facility] Last Admin: 10/03/21 00:15 Dose: Not Given Documented by: Trazodone HCl (Trazodone Hcl 100 Mg Tablet) 200 mg PO BEDTIME [facility] Last Admin: 10/02/21 20:39 Dose: 200 mg Documented by: Time Spent With Patient Time: Total time spent is greater than 50% in coordination of care (as documented) at patient's floor/unit and/or counseling patient: Quality Stroke Does the patient have a stroke diagnosis?: No VTE Prior VTE?: No VTE Risk Level:: Medical - moderate - high VTE Device Contraindication: N/A - Device Ordered VTE Drug Contraindication: N/A - Med Ordered
[2021-10-03] MEDS: cefTRIAXone sodium 1 GM in 0.9 % Sodium Chloride 50 ML IV (08:34)
[2021-10-03] MEDS: 0.9 % Sodium Chloride 1,000 ML 100 ML IVCONT ×2 (08:34→18:26)
[2021-10-03] MEDS: buPROPion HCl XL 150 MG TAB.ER.24H PO (08:45)
[2021-10-03] MEDS: Gabapentin 300 MG CAPSULE PO (08:45)
[2021-10-03] MEDS: lisinopriL 5 MG TABLET PO (08:45)
[2021-10-03] MEDS: hydrOXYzine HCL 25 MG TABLET PO ×2 (08:45→20:38)
[2021-10-03] MEDS: 0.9 % Sodium Chloride Flush 3 ML SYRINGE IVFLUSH ×5 (08:45→20:46)
[2021-10-03] MEDS: rOPINIRole HCL 2 MG TABLET PO ×2 (08:45→20:38)
[2021-10-03] MEDS: amLODIPine Besylate 5 MG TABLET PO (08:45)
[2021-10-03] MEDS: Atorvastatin Calcium 80 MG TABLET PO (08:45)
[2021-10-03 11:49] LABS: Glucose, Whole Blood 121 mg/dL (60-115)
--- NOTE | 2021-10-03 13:17 | P.PNIM_ITS ---
Subjective Subjective Date of Service: 10/03/21 Interval History: Seen and examined this morning Reporting back pain, upper abdominal pain. No dysuria, increased urination no fever or chills Review of Systems Review of Systems: Yes all other systems are reviewed and are negative Constitutional Constitutional: Denies chills and Denies fever(s) Cardiovascular Cardiovascular: Denies chest pain, Denies palpitations and Denies dyspnea Respiratory Respiratory: Denies dyspnea Gastrointestinal Gastrointestinal: Denies nausea and Denies vomiting Endocrine Endocrine: Denies palpitations Physical Exam Vital Signs: Vital Signs: Last Vital Signs Temp 97.8 F 10/03/21 12:00 Pulse 95 10/03/21 12:00 Resp 19 10/03/21 12:00 BP 137/50 L 10/03/21 12:00 Pulse Ox 97 10/03/21 12:00 Oxygen Flow Rate 2 10/01/21 06:44 BMI result Body Mass Index 90.8 Const: General: comfortable, alert and awake Nutritional Appearance: overweight Orientation/consciousness: patient oriented x3 Resp: Effort & Inspection: normal respiratory effort and able to speak in complete sentences Cardio: Rate: regular rate Heart sounds: S1 normal heart sound present and S2 normal heart sound present GI: Inspection: No distended Palpation (GI): Soft to palpation and nontender Neuro: General: patient oriented x3 Objective Data Active Medications Albuterol Sulfate (Albuterol Sulfate (0.042%) 1.25 Mg/3 Ml Vial.Neb) 2.5 mg INHALE Q4H PRN PRN Reason: shortness of breath or wheezing Albuterol Sulfate (Albuterol Sulfate 90 Mcg 8 Gm Inhaler) 2 puff INHALE Q4H PRN PRN Reason: shortness of breath or wheezing Amlodipine Besylate (Amlodipine Besylate 5 Mg Tablet) 5 mg PO DAILY [facility]; Protocol Last Admin: 10/03/21 08:45 Dose: 5 mg Documented by: ANNA Atorvastatin Calcium (Atorvastatin Calcium 80 Mg Tablet) 80 mg PO DAILY [facility] Last Admin: 10/03/21 08:45 Dose: 80 mg Documented by: ANNA Bupropion HCl (Bupropion Hcl Xl 150 Mg Tab.Er.24h) 150 mg PO DAILY [facility] Last Admin: 10/03/21 08:45 Dose: 150 mg Documented by: ANNA Dextrose (Dextrose 50 % 25 Gm/50 Ml Vial) 25 gm IVPUSH Q15M PRN; Protocol PRN Reason: per Hypoglycemia Standing Ord. Fluticasone Propionate (Fluticasone Propionate Nasal 16 Gm [place]) 1 spray NOSTRIL-B DAILY [facility] Last Admin: 10/03/21 08:46 Dose: Not Given Documented by: ANNA Non-Admin Reason: Patient Refused Gabapentin (Gabapentin 300 Mg Capsule) 300 mg PO DAILY [facility] Last Admin: 10/03/21 08:45 Dose: 300 mg Documented by: ANNA Gabapentin (Gabapentin 300 Mg Capsule) 900 mg PO BEDTIME [facility] Last Admin: 10/02/21 20:38 Dose: 900 mg Documented by: BIRGIT Glucose (Glucose Gel 15 Gm Gel..Gram.) 15 gm PO Q15M PRN; Protocol PRN Reason: per Hypoglycemia Standing Ord. Heparin Sodium (Porcine) (Heparin Sodium,Porcine 5,000 Unit/Ml Vial) 5,000 unit SUBCUT Q8H [facility] Last Admin: 10/03/21 08:44 Dose: 5,000 unit Documented by: ANNA Hydroxyzine HCl (Hydroxyzine Hcl 25 Mg Tablet) 25 mg PO BID [facility] Last Admin: 10/03/21 08:45 Dose: 25 mg Documented by: ANNA Sodium Chloride (Ns) 1,000 mls @ 100 mls/hr IVCONT .Q10H [facility] Last Admin: 10/03/21 08:34 Dose: 100 mls/hr Documented by: ANNA Ceftriaxone Sodium 1 gm/ (Sodium Chloride) 50 mls @ 100 mls/hr IV Q24H [facility] Last Infusion: 10/03/21 09:15 Dose: 0 mls/hr Documented by: ANNA Insulin Glargine (Insulin Glargine,Hum.Rec.Anlog 100 Unit/Ml 10 Ml Vial) 14 unit SUBCUT DAILY [facility] Last Admin: 10/03/21 08:43 Dose: Not Given Documented by: ANNA Non-Admin Reason: decreased PO intake; refused snack Insulin Human Lispro (Insulin Lispro 100 Unit/Ml 3 Ml Vial) 0 unit SUBCUT QIDACHS [facility]; Protocol Last Admin: 10/03/21 11:58 Dose: Not Given Documented by: ANNA Non-Admin Reason: No Insulin Coverage Lisinopril (Lisinopril 5 Mg Tablet) 5 mg PO DAILY [facility]; Protocol Last Admin: 10/03/21 08:45 Dose: 5 mg Documented by: ANNA Montelukast Sodium (Montelukast Sodium 10 Mg Tablet) 10 mg PO BEDTIME [facility] Last Admin: 10/02/21 20:39 Dose: 10 mg Documented by: BIRGIT Morphine Sulfate (Morphine Sulfate 4 Mg/Ml Cartridge) 3 mg IVPUSH Q3H PRN; Protocol PRN Reason: Pain, Severe (Pain Scale 7-10) Last Admin: 10/03/21 03:01 Dose: 3 mg Documented by: ROSEY Oxycodone HCl (Oxycodone Hcl Immed Release 5 Mg Tablet) 10 mg PO Q4H PRN PRN Reason: Pain, Severe (Pain Scale 7-10) Last Admin: 10/03/21 08:44 Dose: 10 mg Documented by: ANNA Prochlorperazine Edisylate (Prochlorperazine Edisylate 10 Mg/2 Ml Vial) 5 mg IM Q6H PRN PRN Reason: Nausea and Vomiting Last Admin: 10/02/21 21:17 Dose: 5 mg Documented by: BIRGIT Ropinirole HCl (Ropinirole Hcl 2 Mg Tablet) 2 mg PO BID [facility] Last Admin: 10/03/21 08:45 Dose: 2 mg Documented by: ANNA Sodium Chloride (0.9 % Sodium Chloride Flush 3 Ml Syringe) 3 ml IVFLUSH [facility] Last Admin: 10/03/21 08:45 Dose: 3 ml Documented by: ANNA Sodium Chloride (0.9 % Sodium Chloride Flush 3 Ml Syringe) 3 ml IVFLUSH [facility] Last Admin: 10/03/21 08:45 Dose: 3 ml Documented by: ANNA Trazodone HCl (Trazodone Hcl 100 Mg Tablet) 200 mg PO BEDTIME [facility] Last Admin: 10/02/21 20:39 Dose: 200 mg Documented by: BIRGIT Labs CBC & Chem 7: 10/02/21 06:03 10/02/21 06:03 Labs: Laboratory Results - last 24 hr 10/02/21 10/02/21 10/03/21 16:42 20:36 07:53 POC Glucose 125 H 121 H 107 10/03/21 11:45 POC Glucose 121 H Microbiology Microbiology Results: Microbiology 10/01/21 00:00 Urine Culture - Final Urine clean catch - Urine almaguer top Klebsiella pneumoniae Assessment and Plan (1) UTI (urinary tract infection): Status: Acute (2) Abdominal pain: Status: Acute Plan 71 year old women admitted by general surgery with abdominal pain UTI afebrile, no leukocytosis Urine culture growing Klebsiella pneumonia Continue IV ceftriaxone Abdominal pain.? History of multiple abdominal surgeries No evidence obstruction on the CT scan, there may be some loops of small bowel that are adherent to the abdominal wall on the right side that may be thickened management per surgical team CKD3.? Creatinine Near baseline Avoid nephrotoxic agents Chronic respiratory failure secondary to COPD Continue 2 L supplemental oxygen Diabetes will convert home dose of Levimir to Lantus hold metformin SSI, POCs, ADA diet Hypertension Continue lisinopril and amlodipine Mental health.? Continue home medications Neuropathy Continue gabapentin HLD continue HLD RLS continue ropinerole, gabapentin Morbid obesity.? Discussed the importance of weight management as this may contribute to worsening of other comorbidities. dvt ppx - heparin Attending Dr. Tang code status - Full code Quality Stroke Does the patient have a stroke diagnosis?: No VTE Prior VTE?: No VTE Risk Level:: Medical - moderate - high VTE Device Contraindication: N/A - Device Ordered VTE Drug Contraindication: N/A - Med Ordered
[2021-10-03] MEDS: oxyCODONE HCl Immed Release 5 MG TABLET PO (15:02)
[2021-10-03 16:12] LABS: Glucose, Whole Blood 108 mg/dL (60-115)
[2021-10-03] MEDS: Gabapentin 300 MG CAPSULE 900 MG PO (20:38)
[2021-10-03] MEDS: Montelukast Sodium 10 MG TABLET PO (20:38)
[2021-10-03] MEDS: traZODone HCL 100 MG TABLET 200 MG PO (20:38)
[2021-10-03 21:00] LABS: Glucose, Whole Blood 121 mg/dL (60-115)
[2021-10-04] VITALS (7 sets, daily range): BP systolic 118–163; BP diastolic 49–62; PULSE 80–93; RESP 18–19; TEMP 36.1–36.8; O2SAT 97–98
[2021-10-04] MEDS: Heparin Sodium,Porcine 5,000 UNIT/ML VIAL 5000 UNIT SUBCUT ×3 (00:38→18:18)
[2021-10-04] MEDS: 0.9 % Sodium Chloride Flush 3 ML SYRINGE IVFLUSH ×4 (00:42→18:21)
[2021-10-04] MEDS: Morphine Sulfate 4 MG/ML CARTRIDGE 3 MG IVPUSH ×3 (02:40→21:09)
[2021-10-04] MEDS: 0.9 % Sodium Chloride 1,000 ML 100 ML IVCONT ×2 (06:38→18:29)
[2021-10-04 08:34] LABS: Glucose, Whole Blood 128 mg/dL (60-115)
[2021-10-04] MEDS: cefTRIAXone sodium 1 GM in 0.9 % Sodium Chloride 50 ML IV (09:55)
[2021-10-04] MEDS: hydrOXYzine HCL 25 MG TABLET PO ×2 (09:57→21:01)
[2021-10-04] MEDS: lisinopriL 5 MG TABLET PO (09:57)
[2021-10-04] MEDS: Gabapentin 300 MG CAPSULE PO (09:57)
[2021-10-04] MEDS: amLODIPine Besylate 5 MG TABLET PO (09:57)
[2021-10-04] MEDS: Atorvastatin Calcium 80 MG TABLET PO (09:57)
[2021-10-04] MEDS: rOPINIRole HCL 2 MG TABLET PO ×2 (09:57→21:01)
[2021-10-04] MEDS: buPROPion HCl XL 150 MG TAB.ER.24H PO (09:57)
[2021-10-04] MEDS: Insulin Glargine,Hum.rec.anlog 100 UNIT/ML 10 ML VIAL 14 UNIT SUBCUT (09:58)
[2021-10-04] MEDS: Fluticasone Propionate Nasal 16 GM SPRAY 1 SPRAY NOSTRIL-B (10:17)
[2021-10-04 10:22] LABS: MANUAL DIFF FLAG NO
[2021-10-04 10:24] LABS: Basophils Percent Auto 0.2 % (0-2); Eosinophils Absolute Auto 0.3 X10*3/uL (0.0-0.4); Eosinophils Percent Auto 4.4 % (0-4); Hematocrit 30.7 % (37.0-47.0); Hemoglobin 9.4 g/dl (12.0-16.0); Imm Gran Abs Auto 0.01 X10*3/uL (0.00-0.03); Imm Gran Pct Auto 0.2 % (0.0-0.4); Lymphocytes Absolute Auto 1.3 X10*3/uL (1.2-4.9); Lymphocytes Percent Auto 20.1 % (20-40); Mean Corpuscular HGB Conc 30.6 g/dl (31.0-35.0); Mean Corpuscular Hemoglobin 27.7 pg (27.0-33.0); Mean Corpuscular Volume 90.6 fL (80.0-98.0); Mean Platelet Volume 11.9 fL (9.4-12.3); Monocytes Absolute Auto 0.5 X10*3/uL (0.1-1.2); Monocytes Percent Auto 6.8 % (2-11); Neutrophils Absolute Auto 4.5 x10*3/uL (2.0-8.3); Neutrophils Percent Auto 68.3 % (45-73); Platelet Count 157 X10*3/uL (160-400); Red Blood Count 3.39 X10*6/uL (4.20-5.50); Red Cell Distribution Width 12.6 % (11.0-16.0); White Blood Count 6.6 X10*3/uL (4.8-10.8)
[2021-10-04 10:52] LABS: Anion Gap 12 (12-20); Blood Urea Nitrogen 12 mg/dL (9-16); Calcium 8.2 mg/dL (8.4-10.2); Carbon Dioxide 26 mmol/L (22-29); Chloride 107 mmol/L (96-108); Creatinine Clr Calc Pharmacy 71.6; Estimated Glomerular Filt Rate 41; Glucose Random 137 mg/dL (60-115); Potassium 4.1 mmol/L (3.3-5.1); Sodium 141 mmol/L (135-145)
[2021-10-04 11:11] LABS: Glucose, Whole Blood 148 mg/dL (60-115)
--- NOTE | 2021-10-04 11:16 | P.PNGS_ITS ---
Subjective Subjective Date of Service: 10/07/21 Interval history: Complaints of back pain abdominal pain, frequent urination Otherwise tolerating diet well Has had good BMs Physical Exam Vital Signs: Vital Signs: Last Vital Signs Temp 97.3 F 10/04/21 11:08 Pulse 93 10/04/21 11:08 Resp 18 10/04/21 11:08 BP 149/62 H 10/04/21 11:08 Pulse Ox 97 10/04/21 11:08 Oxygen Flow Rate 2 10/01/21 06:44 BMI result Body Mass Index 90.8 Const: Other: Morbidly obese, a little short of breath as baseline General: comfortable Resp: Other: A little short of breath Cardio: Rate: regular rate GI: Other: Soft, no guarding, no rebound, not distended, some tenderness, vague, mid abdomen Objective Data Active Medications Albuterol Sulfate (Albuterol Sulfate (0.042%) 1.25 Mg/3 Ml Vial.Neb) 2.5 mg INHALE Q4H PRN PRN Reason: shortness of breath or wheezing Albuterol Sulfate (Albuterol Sulfate 90 Mcg 8 Gm Inhaler) 2 puff INHALE Q4H PRN PRN Reason: shortness of breath or wheezing Amlodipine Besylate (Amlodipine Besylate 5 Mg Tablet) 5 mg PO DAILY [facility]; Protocol Last Admin: 10/04/21 09:57 Dose: 5 mg Documented by: GISELL Atorvastatin Calcium (Atorvastatin Calcium 80 Mg Tablet) 80 mg PO DAILY [facility] Last Admin: 10/04/21 09:57 Dose: 80 mg Documented by: GISELL Bupropion HCl (Bupropion Hcl Xl 150 Mg Tab.Er.24h) 150 mg PO DAILY [facility] Last Admin: 10/04/21 09:57 Dose: 150 mg Documented by: GISELL Dextrose (Dextrose 50 % 25 Gm/50 Ml Vial) 25 gm IVPUSH Q15M PRN; Protocol PRN Reason: per Hypoglycemia Standing Ord. Fluticasone Propionate (Fluticasone Propionate Nasal 16 Gm [place]) 1 spray NOSTRIL-B DAILY [facility] Last Admin: 10/04/21 10:17 Dose: 1 spray Documented by: GISELL Gabapentin (Gabapentin 300 Mg Capsule) 300 mg PO DAILY [facility] Last Admin: 10/04/21 09:57 Dose: 300 mg Documented by: GISELL Gabapentin (Gabapentin 300 Mg Capsule) 900 mg PO BEDTIME [facility] Last Admin: 10/03/21 20:38 Dose: 900 mg Documented by: TAM Glucose (Glucose Gel 15 Gm Gel..Gram.) 15 gm PO Q15M PRN; Protocol PRN Reason: per Hypoglycemia Standing Ord. Heparin Sodium (Porcine) (Heparin Sodium,Porcine 5,000 Unit/Ml Vial) 5,000 unit SUBCUT Q8H [facility] Last Admin: 10/04/21 09:56 Dose: 5,000 unit Documented by: GISELL Hydroxyzine HCl (Hydroxyzine Hcl 25 Mg Tablet) 25 mg PO BID [facility] Last Admin: 10/04/21 09:57 Dose: 25 mg Documented by: GISELL Sodium Chloride (Ns) 1,000 mls @ 100 mls/hr IVCONT .Q10H [facility] Last Admin: 10/04/21 06:38 Dose: 100 mls/hr Documented by: TAM Ceftriaxone Sodium 1 gm/ (Sodium Chloride) 50 mls @ 100 mls/hr IV Q24H [facility] Last Admin: 10/04/21 09:55 Dose: 100 mls/hr Documented by: GISELL Insulin Glargine (Insulin Glargine,Hum.Rec.Anlog 100 Unit/Ml 10 Ml Vial) 14 unit SUBCUT DAILY [facility] Last Admin: 10/04/21 09:58 Dose: 14 unit Documented by: GISELL Insulin Human Lispro (Insulin Lispro 100 Unit/Ml 3 Ml Vial) 0 unit SUBCUT QIDACHS [facility]; Protocol Last Admin: 10/04/21 08:07 Dose: Not Given Documented by: GISELL Non-Admin Reason: No Insulin Coverage Lisinopril (Lisinopril 5 Mg Tablet) 5 mg PO DAILY [facility]; Protocol Last Admin: 10/04/21 09:57 Dose: 5 mg Documented by: GISELL Montelukast Sodium (Montelukast Sodium 10 Mg Tablet) 10 mg PO BEDTIME [facility] Last Admin: 10/03/21 20:38 Dose: 10 mg Documented by: TAM Morphine Sulfate (Morphine Sulfate 4 Mg/Ml Cartridge) 3 mg IVPUSH Q3H PRN; Protocol PRN Reason: Pain, Severe (Pain Scale 7-10) Last Admin: 10/04/21 09:53 Dose: 3 mg Documented by: GISELL Oxycodone HCl (Oxycodone Hcl Immed Release 5 Mg Tablet) 5 mg PO Q4H PRN PRN Reason: Pain, Severe (Pain Scale 7-10) Last Admin: 10/03/21 15:02 Dose: 5 mg Documented by: ANNA Prochlorperazine Edisylate (Prochlorperazine Edisylate 10 Mg/2 Ml Vial) 5 mg IM Q6H PRN PRN Reason: Nausea and Vomiting Last Admin: 10/02/21 21:17 Dose: 5 mg Documented by: BIRGIT Ropinirole HCl (Ropinirole Hcl 2 Mg Tablet) 2 mg PO BID [facility] Last Admin: 10/04/21 09:57 Dose: 2 mg Documented by: GISELL Sodium Chloride (0.9 % Sodium Chloride Flush 3 Ml Syringe) [facility] Last Admin: 10/04/21 09:58 Dose: 3 ml Documented by: GISELL Sodium Chloride (0.9 % Sodium Chloride Flush 3 Ml Syringe) 3 ml IVFLUSH [facility] Last Admin: 10/04/21 09:58 Dose: 3 ml Documented by: GISELL Trazodone HCl (Trazodone Hcl 100 Mg Tablet) 200 mg PO BEDTIME [facility] Last Admin: 10/03/21 20:38 Dose: 200 mg Documented by: TAM Labs CBC & Chem 7: 10/04/21 10:16 10/04/21 10:16 Labs: Laboratory Results - last 24 hr 10/03/21 10/03/21 10/03/21 11:45 16:09 20:47 MCV MCH MCHC RDW Plt Count MPV Immature Gran % (Auto) Neut % (Auto) Lymph % (Auto) [place] % (Auto) Eos % (Auto) Baso % (Auto) Lymph # (Auto) [place] # (Auto) Eos # (Auto) Baso # (Auto) Abs Immat Gran (auto) Absolute Neuts (auto) Absolute Nucleated RBC Nucleated RBC % (auto) Anion Gap Estim Creat Clear Calc Estimated GFR POC Glucose 121 H 108 121 H Random Glucose Calcium 10/04/21 10/04/21 10/04/21 07:50 10:16 10:16 MCV 90.6 MCH 27.7 MCHC 30.6 L RDW 12.6 Plt Count 157 L MPV 11.9 Immature Gran % (Auto) 0.2 Neut % (Auto) 68.3 Lymph % (Auto) 20.1 [place] % (Auto) 6.8 Eos % (Auto) 4.4 H Baso % (Auto) 0.2 Lymph # (Auto) 1.3 [place] # (Auto) 0.5 Eos # (Auto) 0.3 Baso # (Auto) 0.0 Abs Immat Gran (auto) 0.01 Absolute Neuts (auto) 4.5 Absolute Nucleated RBC 0.000 Nucleated RBC % (auto) 0.0 Anion Gap 12 Estim Creat Clear Calc 71.6 Estimated GFR 41 POC Glucose 128 H Random Glucose 137 H Calcium 8.2 L D 10/04/21 11:08 MCV MCH MCHC RDW Plt Count MPV Immature Gran % (Auto) Neut % (Auto) Lymph % (Auto) [place] % (Auto) Eos % (Auto) Baso % (Auto) Lymph # (Auto) [place] # (Auto) Eos # (Auto) Baso # (Auto) Abs Immat Gran (auto) Absolute Neuts (auto) Absolute Nucleated RBC Nucleated RBC % (auto) Anion Gap Estim Creat Clear Calc Estimated GFR POC Glucose 148 H Random Glucose Calcium Microbiology Microbiology Results: Microbiology 10/01/21 00:00 Urine Culture - Final Urine clean catch - Urine almaguer top Klebsiella pneumoniae Procedures Date of Service Date of Service: 10/04/21 Progress Note: A&P Assessment and plan (1) Abdominal pain: Status: Acute Assessment and Plan: No significant etiology of abdominal pain CT scan review She did have UTI Good GI functions No obstruction Has multiple medical issues, and especially pulmonary Plan is to discharge her home once she feels ready Poor oral intake Has been on antibiotics for UTI Will discuss with hospitalist Fall Risk Details Current Medications: Current Medications Albuterol Sulfate (Albuterol Sulfate (0.042%) 1.25 Mg/3 Ml Vial.Neb) 2.5 mg INHALE Q4H PRN PRN Reason: shortness of breath or wheezing Albuterol Sulfate (Albuterol Sulfate 90 Mcg 8 Gm Inhaler) 2 puff INHALE Q4H PRN PRN Reason: shortness of breath or wheezing Amlodipine Besylate (Amlodipine Besylate 5 Mg Tablet) 5 mg PO DAILY [facility]; Protocol Last Admin: 10/04/21 09:57 Dose: 5 mg Documented by: Atorvastatin Calcium (Atorvastatin Calcium 80 Mg Tablet) 80 mg PO DAILY [facility] Last Admin: 10/04/21 09:57 Dose: 80 mg Documented by: Bupropion HCl (Bupropion Hcl Xl 150 Mg Tab.Er.24h) 150 mg PO DAILY [facility] Last Admin: 10/04/21 09:57 Dose: 150 mg Documented by: Dextrose (Dextrose 50 % 25 Gm/50 Ml Vial) 25 gm IVPUSH Q15M PRN; Protocol PRN Reason: per Hypoglycemia Standing Ord. Fluticasone Propionate (Fluticasone Propionate Nasal 16 Gm [place]) 1 spray NOSTRIL-B DAILY [facility] Last Admin: 10/04/21 10:17 Dose: 1 spray Documented by: Gabapentin (Gabapentin 300 Mg Capsule) 300 mg PO DAILY [facility] Last Admin: 10/04/21 09:57 Dose: 300 mg Documented by: Gabapentin (Gabapentin 300 Mg Capsule) 900 mg PO BEDTIME [facility] Last Admin: 10/03/21 20:38 Dose: 900 mg Documented by: Glucose (Glucose Gel 15 Gm Gel..Gram.) 15 gm PO Q15M PRN; Protocol PRN Reason: per Hypoglycemia Standing Ord. Heparin Sodium (Porcine) (Heparin Sodium,Porcine 5,000 Unit/Ml Vial) 5,000 unit SUBCUT Q8H [facility] Last Admin: 10/04/21 09:56 Dose: 5,000 unit Documented by: Hydroxyzine HCl (Hydroxyzine Hcl 25 Mg Tablet) 25 mg PO BID [facility] Last Admin: 10/04/21 09:57 Dose: 25 mg Documented by: Sodium Chloride (Ns) 1,000 mls @ 100 mls/hr IVCONT .Q10H [facility] Last Admin: 10/04/21 06:38 Dose: 100 mls/hr Documented by: Ceftriaxone Sodium 1 gm/ (Sodium Chloride) 50 mls @ 100 mls/hr IV Q24H [facility] Last Admin: 10/04/21 09:55 Dose: 100 mls/hr Documented by: Insulin Glargine (Insulin Glargine,Hum.Rec.Anlog 100 Unit/Ml 10 Ml Vial) 14 unit SUBCUT DAILY [facility] Last Admin: 10/04/21 09:58 Dose: 14 unit Documented by: Insulin Human Lispro (Insulin Lispro 100 Unit/Ml 3 Ml Vial) 0 unit SUBCUT QIDACHS [facility]; Protocol Last Admin: 10/04/21 08:07 Dose: Not Given Documented by: Lisinopril (Lisinopril 5 Mg Tablet) 5 mg PO DAILY [facility]; Protocol Last Admin: 10/04/21 09:57 Dose: 5 mg Documented by: Montelukast Sodium (Montelukast Sodium 10 Mg Tablet) 10 mg PO BEDTIME [facility] Last Admin: 10/03/21 20:38 Dose: 10 mg Documented by: Morphine Sulfate (Morphine Sulfate 4 Mg/Ml Cartridge) 3 mg IVPUSH Q3H PRN; Protocol PRN Reason: Pain, Severe (Pain Scale 7-10) Last Admin: 10/04/21 09:53 Dose: 3 mg Documented by: Oxycodone HCl (Oxycodone Hcl Immed Release 5 Mg Tablet) 5 mg PO Q4H PRN PRN Reason: Pain, Severe (Pain Scale 7-10) Last Admin: 10/03/21 15:02 Dose: 5 mg Documented by: Prochlorperazine Edisylate (Prochlorperazine Edisylate 10 Mg/2 Ml Vial) 5 mg IM Q6H PRN PRN Reason: Nausea and Vomiting Last Admin: 10/02/21 21:17 Dose: 5 mg Documented by: Ropinirole HCl (Ropinirole Hcl 2 Mg Tablet) 2 mg PO BID [facility] Last Admin: 10/04/21 09:57 Dose: 2 mg Documented by: Sodium Chloride (0.9 % Sodium Chloride Flush 3 Ml Syringe) 3 ml IVFLUSH [facility] Last Admin: 10/04/21 09:58 Dose: 3 ml Documented by: Sodium Chloride (0.9 % Sodium Chloride Flush 3 Ml Syringe) 3 ml IVFLUSH [facility] Last Admin: 10/04/21 09:58 Dose: 3 ml Documented by: Trazodone HCl (Trazodone Hcl 100 Mg Tablet) 200 mg PO BEDTIME [facility] Last Admin: 10/03/21 20:38 Dose: 200 mg Documented by: Time Spent With Patient Time: Total time spent is greater than 50% in coordination of care (as documented) at patient's floor/unit and/or counseling patient: Quality Stroke Does the patient have a stroke diagnosis?: No VTE Prior VTE?: No VTE Risk Level:: Medical - moderate - high VTE Device Contraindication: N/A - Device Ordered VTE Drug Contraindication: N/A - Med Ordered
[2021-10-04 13:34] LABS: Glucose, Whole Blood < 10 mg/dL (60-115)
--- NOTE | 2021-10-04 14:01 | HO.PM.IMPN ---
Subjective Subjective Date of Service: 10/04/21 Interval History: reporting mid abdominal pain but no nausea or vomiting or diarrhea no dysuria, fever or chills Review of Systems Review of Systems: Yes all other systems are reviewed and are negative Constitutional Constitutional: Denies chills and Denies fever(s) Cardiovascular Cardiovascular: Denies chest pain, Denies palpitations and Denies dyspnea Respiratory Respiratory: Denies cough and Denies dyspnea Gastrointestinal Gastrointestinal: Denies diarrhea, Denies nausea and Denies vomiting Endocrine Endocrine: Denies palpitations Physical Exam Vital Signs: Vital Signs: Last Vital Signs Temp 97.3 F 10/04/21 11:08 Pulse 93 10/04/21 11:08 Resp 18 10/04/21 11:08 BP 149/62 H 10/04/21 11:08 Pulse Ox 97 10/04/21 11:08 Oxygen Flow Rate 2 10/01/21 06:44 BMI result Body Mass Index 90.8 Const: General: comfortable, alert and awake Nutritional Appearance: overweight Orientation/consciousness: patient oriented x3 Resp: Other: scattered wheezing Effort & Inspection: normal respiratory effort and able to speak in complete sentences Cardio: Rate: regular rate Heart sounds: S1 normal heart sound present and S2 normal heart sound present GI: Inspection: No distended Palpation (GI): Soft to palpation and nontender Neuro: General: patient oriented x3 Objective Data Active Medications Albuterol Sulfate (Albuterol Sulfate (0.042%) 1.25 Mg/3 Ml Vial.Neb) 2.5 mg INHALE Q4H PRN PRN Reason: shortness of breath or wheezing Albuterol Sulfate (Albuterol Sulfate 90 Mcg 8 Gm Inhaler) 2 puff INHALE Q4H PRN PRN Reason: shortness of breath or wheezing Amlodipine Besylate (Amlodipine Besylate 5 Mg Tablet) 5 mg PO DAILY [facility]; Protocol Last Admin: 10/04/21 09:57 Dose: 5 mg Documented by: GISELL Atorvastatin Calcium (Atorvastatin Calcium 80 Mg Tablet) 80 mg PO DAILY [facility] Last Admin: 10/04/21 09:57 Dose: 80 mg Documented by: GISELL Bupropion HCl (Bupropion Hcl Xl 150 Mg Tab.Er.24h) 150 mg PO DAILY [facility] Last Admin: 10/04/21 09:57 Dose: 150 mg Documented by: GISELL Dextrose (Dextrose 50 % 25 Gm/50 Ml Vial) 25 gm IVPUSH Q15M PRN; Protocol PRN Reason: per Hypoglycemia Standing Ord. Fluticasone Propionate (Fluticasone Propionate Nasal 16 Gm [place]) 1 spray NOSTRIL-B DAILY [facility] Last Admin: 10/04/21 10:17 Dose: 1 spray Documented by: GISELL Gabapentin (Gabapentin 300 Mg Capsule) 300 mg PO DAILY [facility] Last Admin: 10/04/21 09:57 Dose: 300 mg Documented by: GISELL Gabapentin (Gabapentin 300 Mg Capsule) 900 mg PO BEDTIME [facility] Last Admin: 10/03/21 20:38 Dose: 900 mg Documented by: TAM Glucose (Glucose Gel 15 Gm Gel..Gram.) 15 gm PO Q15M PRN; Protocol PRN Reason: per Hypoglycemia Standing Ord. Heparin Sodium (Porcine) (Heparin Sodium,Porcine 5,000 Unit/Ml Vial) 5,000 unit SUBCUT Q8H [facility] Last Admin: 10/04/21 09:56 Dose: 5,000 unit Documented by: GISELL Hydroxyzine HCl (Hydroxyzine Hcl 25 Mg Tablet) 25 mg PO BID [facility] Last Admin: 10/04/21 09:57 Dose: 25 mg Documented by: GISELL Sodium Chloride (Ns) 1,000 mls @ 100 mls/hr IVCONT .Q10H [facility] Last Admin: 10/04/21 06:38 Dose: 100 mls/hr Documented by: TAM Ceftriaxone Sodium 1 gm/ (Sodium Chloride) 50 mls @ 100 mls/hr IV Q24H [facility] Last Infusion: 10/04/21 11:16 Dose: 0 mls/hr Documented by: GISELL Insulin Glargine (Insulin Glargine,Hum.Rec.Anlog 100 Unit/Ml 10 Ml Vial) 14 unit SUBCUT DAILY [facility] Last Admin: 10/04/21 09:58 Dose: 14 unit Documented by: GISELL Insulin Human Lispro (Insulin Lispro 100 Unit/Ml 3 Ml Vial) 0 unit SUBCUT QIDACHS [facility]; Protocol Last Admin: 10/04/21 11:17 Dose: Not Given Documented by: GISELL Non-Admin Reason: No Insulin Coverage Lisinopril (Lisinopril 5 Mg Tablet) 5 mg PO DAILY [facility]; Protocol Last Admin: 10/04/21 09:57 Dose: 5 mg Documented by: GISELL Montelukast Sodium (Montelukast Sodium 10 Mg Tablet) 10 mg PO BEDTIME [facility] Last Admin: 10/03/21 20:38 Dose: 10 mg Documented by: TAM Morphine Sulfate (Morphine Sulfate 4 Mg/Ml Cartridge) 3 mg IVPUSH Q3H PRN; Protocol PRN Reason: Pain, Severe (Pain Scale 7-10) Last Admin: 10/04/21 09:53 Dose: 3 mg Documented by: GISELL Oxycodone HCl (Oxycodone Hcl Immed Release 5 Mg Tablet) 5 mg PO Q4H PRN PRN Reason: Pain, Severe (Pain Scale 7-10) Last Admin: 10/03/21 15:02 Dose: 5 mg Documented by: ANNA Prochlorperazine Edisylate (Prochlorperazine Edisylate 10 Mg/2 Ml Vial) 5 mg IM Q6H PRN PRN Reason: Nausea and Vomiting Last Admin: 10/02/21 21:17 Dose: 5 mg Documented by: BIRGIT Ropinirole HCl (Ropinirole Hcl 2 Mg Tablet) 2 mg PO BID [facility] Last Admin: 10/04/21 09:57 Dose: 2 mg Documented by: GISELL Sodium Chloride (0.9 % Sodium Chloride Flush 3 Ml Syringe) 3 ml IVFLUSH [facility] Last Admin: 10/04/21 09:58 Dose: 3 ml Documented by: GISELL Sodium Chloride (0.9 % Sodium Chloride Flush 3 Ml Syringe) 3 ml IVFLUSH [facility] Last Admin: 10/04/21 09:58 Dose: 3 ml Documented by: GISELL Trazodone HCl (Trazodone Hcl 100 Mg Tablet) 200 mg PO BEDTIME [facility] Last Admin: 10/03/21 20:38 Dose: 200 mg Documented by: TAM Labs CBC & Chem 7: 10/04/21 10:16 10/04/21 10:16 Labs: Laboratory Results - last 24 hr 10/03/21 10/03/21 10/04/21 16:09 20:47 07:49 MCV MCH MCHC RDW Plt Count MPV Immature Gran % (Auto) Neut % (Auto) Lymph % (Auto) [place] % (Auto) Eos % (Auto) Baso % (Auto) Lymph # (Auto) [place] # (Auto) Eos # (Auto) Baso # (Auto) Abs Immat Gran (auto) Absolute Neuts (auto) Absolute Nucleated RBC Nucleated RBC % (auto) Anion Gap Estim Creat Clear Calc Estimated GFR POC Glucose 108 121 H < 10 L* Random Glucose Calcium 10/04/21 10/04/21 10/04/21 07:50 10:16 10:16 MCV 90.6 MCH 27.7 MCHC 30.6 L RDW 12.6 Plt Count 157 L MPV 11.9 Immature Gran % (Auto) 0.2 Neut % (Auto) 68.3 Lymph % (Auto) 20.1 [place] % (Auto) 6.8 Eos % (Auto) 4.4 H Baso % (Auto) 0.2 Lymph # (Auto) 1.3 [place] # (Auto) 0.5 Eos # (Auto) 0.3 Baso # (Auto) 0.0 Abs Immat Gran (auto) 0.01 Absolute Neuts (auto) 4.5 Absolute Nucleated RBC 0.000 Nucleated RBC % (auto) 0.0 Anion Gap 12 Estim Creat Clear Calc 71.6 Estimated GFR 41 POC Glucose 128 H Random Glucose 137 H Calcium 8.2 L D 10/04/21 11:08 MCV MCH MCHC RDW Plt Count MPV Immature Gran % (Auto) Neut % (Auto) Lymph % (Auto) [place] % (Auto) Eos % (Auto) Baso % (Auto) Lymph # (Auto) [place] # (Auto) Eos # (Auto) Baso # (Auto) Abs Immat Gran (auto) Absolute Neuts (auto) Absolute Nucleated RBC Nucleated RBC % (auto) Anion Gap Estim Creat Clear Calc Estimated GFR POC Glucose 148 H Random Glucose Calcium Assessment and Plan (1) UTI (urinary tract infection): Status: Acute Plan 71 year old women admitted by general surgery with abdominal pain UTI afebrile, no leukocytosis Urine culture growing Klebsiella pneumonia Continue IV ceftriaxone Abdominal pain.? History of multiple abdominal surgeries No evidence obstruction on the CT scan management per surgical team CKD3.? Creatinine Near baseline Avoid nephrotoxic agents Chronic respiratory failure secondary to COPD Continue 2 L supplemental oxygen scattered wheezing on exam but no sob or cough continue prn breathing treatments Diabetes will convert home dose of Levimir to Lantus hold metformin SSI, POCs, ADA diet Hypertension Continue lisinopril and amlodipine Mood Continue home medications, wellbutrin, atarax Neuropathy Continue gabapentin HLD continue HLD RLS continue ropinerole, gabapentin Morbid obesity.? Discussed the importance of weight management as this may contribute to worsening of other comorbidities. dvt ppx - heparin Attending Dr. Tang code status - Full code Quality Stroke Does the patient have a stroke diagnosis?: No VTE Prior VTE?: No VTE Risk Level:: Medical - moderate - high VTE Device Contraindication: N/A - Device Ordered VTE Drug Contraindication: N/A - Med Ordered
--- NOTE | 2021-10-04 15:18 | MHC.CM.PN ---
Female 71 DX UTI DP home with resumption of [facility]. She will arrange for transportation home.
[2021-10-04 16:33] LABS: Glucose, Whole Blood 131 mg/dL (60-115)
[2021-10-04 20:46] LABS: Glucose, Whole Blood 162 mg/dL (60-115)
[2021-10-04] MEDS: Insulin Lispro 100 UNIT/ML 3 ML VIAL SUBCUT (21:01)
[2021-10-04] MEDS: traZODone HCL 100 MG TABLET 200 MG PO (21:02)
[2021-10-04] MEDS: Montelukast Sodium 10 MG TABLET PO (21:02)
[2021-10-04] MEDS: Gabapentin 300 MG CAPSULE 900 MG PO (21:02)
[2021-10-05] MEDS: Heparin Sodium,Porcine 5,000 UNIT/ML VIAL 5000 UNIT SUBCUT ×4 (00:23→23:36)
[2021-10-05] MEDS: 0.9 % Sodium Chloride Flush 3 ML SYRINGE IVFLUSH ×6 (00:25→23:37)
[2021-10-05 03:08] VITALS: BP 126/71; PULSE 84; RESP 18; TEMP 36.1; O2SAT 97
[2021-10-05] MEDS: Albuterol Sulfate (0.042%) 1.25 MG/3 ML VIAL.NEB 2.5 MG INHALE (06:40)
[2021-10-05 06:41] VITALS: PULSE 84; RESP 20; O2SAT 97
[2021-10-05 08:00] VITALS: BP 150/65; PULSE 102; RESP 20; TEMP 36.2; O2SAT 99
[2021-10-05 08:32] LABS: Glucose, Whole Blood 138 mg/dL (60-115)
[2021-10-05] MEDS: rOPINIRole HCL 2 MG TABLET PO ×2 (10:05→21:59)
[2021-10-05] MEDS: buPROPion HCl XL 150 MG TAB.ER.24H PO (10:05)
[2021-10-05] MEDS: amLODIPine Besylate 5 MG TABLET PO (10:05)
[2021-10-05] MEDS: lisinopriL 5 MG TABLET PO (10:06)
[2021-10-05] MEDS: Atorvastatin Calcium 80 MG TABLET PO (10:06)
[2021-10-05] MEDS: hydrOXYzine HCL 25 MG TABLET PO ×2 (10:06→21:59)
--- NOTE | 2021-10-05 10:06 | PM.PNGS ---
Subjective Subjective Date of Service: 10/05/21 Interval history: Patient reports continued abdominal pain in the lower abdomen. Was incontinent of urine but did have a solid bowel movement this morning. Physical Exam Vital Signs: Vital Signs: Last Vital Signs Temp 97.2 F 10/05/21 08:00 Pulse 102 H 10/05/21 08:00 Resp 20 10/05/21 08:00 BP 150/65 H 10/05/21 08:00 Pulse Ox 99 10/05/21 08:00 Oxygen Flow Rate 2 10/01/21 06:44 BMI result Body Mass Index 90.8 Const: General: no acute distress Nutritional Appearance: obese Orientation/consciousness: patient oriented x3 Limitations: no limitations HEENT: Head: Yes normocephalic and Yes atraumatic Resp: Other: On nasal O2 Effort & Inspection: normal respiratory effort GI: Other: Obese, distended, soft, mild tenderness in the lower abdomen without rebound or guarding. Skin: Other: Warm, dry, no rash Neuro: General: patient oriented x3 Objective Data Active Medications Albuterol Sulfate (Albuterol Sulfate (0.042%) 1.25 Mg/3 Ml Vial.Neb) 2.5 mg INHALE Q4H PRN PRN Reason: shortness of breath or wheezing Last Admin: 10/05/21 06:40 Dose: 2.5 mg Documented by: OMAR Albuterol Sulfate (Albuterol Sulfate 90 Mcg 8 Gm Inhaler) 2 puff INHALE Q4H PRN PRN Reason: shortness of breath or wheezing Amlodipine Besylate (Amlodipine Besylate 5 Mg Tablet) 5 mg PO DAILY [facility]; Protocol Last Admin: 10/04/21 09:57 Dose: 5 mg Documented by: GISELL Atorvastatin Calcium (Atorvastatin Calcium 80 Mg Tablet) 80 mg PO DAILY [facility] Last Admin: 10/04/21 09:57 Dose: 80 mg Documented by: GISELL Bupropion HCl (Bupropion Hcl Xl 150 Mg Tab.Er.24h) 150 mg PO DAILY [facility] Last Admin: 10/04/21 09:57 Dose: 150 mg Documented by: GISELL Dextrose (Dextrose 50 % 25 Gm/50 Ml Vial) 25 gm IVPUSH Q15M PRN; Protocol PRN Reason: per Hypoglycemia Standing Ord. Fluticasone Propionate (Fluticasone Propionate Nasal 16 Gm [place]) 1 spray NOSTRIL-B DAILY [facility] Last Admin: 10/04/21 10:17 Dose: 1 spray Documented by: IGSELL Gabapentin (Gabapentin 300 Mg Capsule) 300 mg PO DAILY [facility] Last Admin: 10/04/21 09:57 Dose: 300 mg Documented by: GISELL Gabapentin (Gabapentin 300 Mg Capsule) 900 mg PO BEDTIME [facility] Last Admin: 10/04/21 21:02 Dose: 900 mg Documented by: PONCE Glucose (Glucose Gel 15 Gm Gel..Gram.) 15 gm PO Q15M PRN; Protocol PRN Reason: per Hypoglycemia Standing Ord. Heparin Sodium (Porcine) (Heparin Sodium,Porcine 5,000 Unit/Ml Vial) 5,000 unit SUBCUT Q8H [facility] Last Admin: 10/05/21 00:23 Dose: 5,000 unit Documented by: AKIKO Hydroxyzine HCl (Hydroxyzine Hcl 25 Mg Tablet) 25 mg PO BID [facility] Last Admin: 10/04/21 21:01 Dose: 25 mg Documented by: PONCE Ceftriaxone Sodium 1 gm/ (Sodium Chloride) 50 mls @ 100 mls/hr IV Q24H [facility] Stop: 10/06/21 09:29 Last Infusion: 10/04/21 11:16 Dose: 0 mls/hr Documented by: GISELL Insulin Glargine (Insulin Glargine,Hum.Rec.Anlog 100 Unit/Ml 10 Ml Vial) 14 unit SUBCUT DAILY [facility] Last Admin: 10/04/21 09:58 Dose: 14 unit Documented by: GISELL Insulin Human Lispro (Insulin Lispro 100 Unit/Ml 3 Ml Vial) 0 unit SUBCUT QIDACHS [facility]; Protocol Last Admin: 10/05/21 07:30 Dose: Not Given Documented by: JOSEPH Non-Admin Reason: No Insulin Coverage Lisinopril (Lisinopril 5 Mg Tablet) 5 mg PO DAILY [facility]; Protocol Last Admin: 10/04/21 09:57 Dose: 5 mg Documented by: GISELL Montelukast Sodium (Montelukast Sodium 10 Mg Tablet) 10 mg PO BEDTIME [facility] Last Admin: 10/04/21 21:02 Dose: 10 mg Documented by: PONCE Morphine Sulfate (Morphine Sulfate 4 Mg/Ml Cartridge) 3 mg IVPUSH Q3H PRN; Protocol PRN Reason: Pain, Severe (Pain Scale 7-10) Last Admin: 10/04/21 21:09 Dose: 3 mg Documented by: PONCE Oxycodone HCl (Oxycodone Hcl Immed Release 5 Mg Tablet) 5 mg PO Q4H PRN PRN Reason: Pain, Severe (Pain Scale 7-10) Last Admin: 10/03/21 15:02 Dose: 5 mg Documented by: ANNA Prochlorperazine Edisylate (Prochlorperazine Edisylate 10 Mg/2 Ml Vial) 5 mg IM Q6H PRN PRN Reason: Nausea and Vomiting Last Admin: 10/02/21 21:17 Dose: 5 mg Documented by: BIRGIT Ropinirole HCl (Ropinirole Hcl 2 Mg Tablet) 2 mg PO BID [facility] Last Admin: 10/04/21 21:01 Dose: 2 mg Documented by: PONCE Sodium Chloride (0.9 % Sodium Chloride Flush 3 Ml Syringe) 3 ml IVFLUSH [facility] Last Admin: 10/05/21 00:25 Dose: 3 ml Documented by: AKIKO Sodium Chloride (0.9 % Sodium Chloride Flush 3 Ml Syringe) 3 ml IVFLUSH [facility] Last Admin: 10/05/21 00:25 Dose: 3 ml Documented by: AKIKO Trazodone HCl (Trazodone Hcl 100 Mg Tablet) 200 mg PO BEDTIME [facility] Last Admin: 10/04/21 21:02 Dose: 200 mg Documented by: PONCE Labs CBC & Chem 7: 10/04/21 10:16 10/04/21 10:16 Labs: Laboratory Results - last 24 hr 10/04/21 10/04/21 10/04/21 07:49 10:16 10:16 MCV 90.6 MCH 27.7 MCHC 30.6 L RDW 12.6 Plt Count 157 L MPV 11.9 Immature Gran % (Auto) 0.2 Neut % (Auto) 68.3 Lymph % (Auto) 20.1 [place] % (Auto) 6.8 Eos % (Auto) 4.4 H Baso % (Auto) 0.2 Lymph # (Auto) 1.3 [place] # (Auto) 0.5 Eos # (Auto) 0.3 Baso # (Auto) 0.0 Abs Immat Gran (auto) 0.01 Absolute Neuts (auto) 4.5 Absolute Nucleated RBC 0.000 Nucleated RBC % (auto) 0.0 Anion Gap 12 Estim Creat Clear Calc 71.6 Estimated GFR 41 POC Glucose < 10 L* Random Glucose 137 H Calcium 8.2 L D 10/04/21 10/04/21 10/04/21 11:08 16:24 20:39 MCV MCH MCHC RDW Plt Count MPV Immature Gran % (Auto) Neut % (Auto) Lymph % (Auto) [place] % (Auto) Eos % (Auto) Baso % (Auto) Lymph # (Auto) [place] # (Auto) Eos # (Auto) Baso # (Auto) Abs Immat Gran (auto) Absolute Neuts (auto) Absolute Nucleated RBC Nucleated RBC % (auto) Anion Gap Estim Creat Clear Calc Estimated GFR POC Glucose 148 H 131 H 162 H Random Glucose Calcium 10/05/21 07:25 MCV MCH MCHC RDW Plt Count MPV Immature Gran % (Auto) Neut % (Auto) Lymph % (Auto) [place] % (Auto) Eos % (Auto) Baso % (Auto) Lymph # (Auto) [place] # (Auto) Eos # (Auto) Baso # (Auto) Abs Immat Gran (auto) Absolute Neuts (auto) Absolute Nucleated RBC Nucleated RBC % (auto) Anion Gap Estim Creat Clear Calc Estimated GFR POC Glucose 138 H Random Glucose Calcium Procedures Date of Service Date of Service: 10/05/21 Progress Note: A&P Assessment and plan (1) Abdominal pain: Status: Acute Assessment and Plan: Continued abdominal pain of unknown etiology. CT shows no obstruction, full stool. Her GI function remains good and she is tolerating some food. She continues on antibiotics for UTI. Will continue to monitor for the next 24 hours. Fall Risk Details Current Medications: Current Medications Albuterol Sulfate (Albuterol Sulfate (0.042%) 1.25 Mg/3 Ml Vial.Neb) 2.5 mg INHALE Q4H PRN PRN Reason: shortness of breath or wheezing Last Admin: 10/05/21 06:40 Dose: 2.5 mg Documented by: Albuterol Sulfate (Albuterol Sulfate 90 Mcg 8 Gm Inhaler) 2 puff INHALE Q4H PRN PRN Reason: shortness of breath or wheezing Amlodipine Besylate (Amlodipine Besylate 5 Mg Tablet) 5 mg PO DAILY [facility]; Protocol Last Admin: 10/04/21 09:57 Dose: 5 mg Documented by: Atorvastatin Calcium (Atorvastatin Calcium 80 Mg Tablet) 80 mg PO DAILY [facility] Last Admin: 10/04/21 09:57 Dose: 80 mg Documented by: Bupropion HCl (Bupropion Hcl Xl 150 Mg Tab.Er.24h) 150 mg PO DAILY [facility] Last Admin: 10/04/21 09:57 Dose: 150 mg Documented by: Dextrose (Dextrose 50 % 25 Gm/50 Ml Vial) 25 gm IVPUSH Q15M PRN; Protocol PRN Reason: per Hypoglycemia Standing Ord. Fluticasone Propionate (Fluticasone Propionate Nasal 16 Gm [place]) 1 spray NOSTRIL-B DAILY [facility] Last Admin: 10/04/21 10:17 Dose: 1 spray Documented by: Gabapentin (Gabapentin 300 Mg Capsule) 300 mg PO DAILY [facility] Last Admin: 10/04/21 09:57 Dose: 300 mg Documented by: Gabapentin (Gabapentin 300 Mg Capsule) 900 mg PO BEDTIME [facility] Last Admin: 10/04/21 21:02 Dose: 900 mg Documented by: Glucose (Glucose Gel 15 Gm Gel..Gram.) 15 gm PO Q15M PRN; Protocol PRN Reason: per Hypoglycemia Standing Ord. Heparin Sodium (Porcine) (Heparin Sodium,Porcine 5,000 Unit/Ml Vial) 5,000 unit SUBCUT Q8H [facility] Last Admin: 10/05/21 00:23 Dose: 5,000 unit Documented by: Hydroxyzine HCl (Hydroxyzine Hcl 25 Mg Tablet) 25 mg PO BID [facility] Last Admin: 10/04/21 21:01 Dose: 25 mg Documented by: Ceftriaxone Sodium 1 gm/ (Sodium Chloride) 50 mls @ 100 mls/hr IV Q24H [facility] Stop: 10/06/21 09:29 Last Infusion: 10/04/21 11:16 Dose: Infused Documented by: Insulin Glargine (Insulin Glargine,Hum.Rec.Anlog 100 Unit/Ml 10 Ml Vial) 14 unit SUBCUT DAILY [facility] Last Admin: 10/04/21 09:58 Dose: 14 unit Documented by: Insulin Human Lispro (Insulin Lispro 100 Unit/Ml 3 Ml Vial) 0 unit SUBCUT QIDACHS [facility]; Protocol Last Admin: 10/05/21 07:30 Dose: Not Given Documented by: Lisinopril (Lisinopril 5 Mg Tablet) 5 mg PO DAILY [facility]; Protocol Last Admin: 10/04/21 09:57 Dose: 5 mg Documented by: Montelukast Sodium (Montelukast Sodium 10 Mg Tablet) 10 mg PO BEDTIME [facility] Last Admin: 10/04/21 21:02 Dose: 10 mg Documented by: Morphine Sulfate (Morphine Sulfate 4 Mg/Ml Cartridge) 3 mg IVPUSH Q3H PRN; Protocol PRN Reason: Pain, Severe (Pain Scale 7-10) Last Admin: 10/04/21 21:09 Dose: 3 mg Documented by: Oxycodone HCl (Oxycodone Hcl Immed Release 5 Mg Tablet) 5 mg PO Q4H PRN PRN Reason: Pain, Severe (Pain Scale 7-10) Last Admin: 10/03/21 15:02 Dose: 5 mg Documented by: Prochlorperazine Edisylate (Prochlorperazine Edisylate 10 Mg/2 Ml Vial) 5 mg IM Q6H PRN PRN Reason: Nausea and Vomiting Last Admin: 10/02/21 21:17 Dose: 5 mg Documented by: Ropinirole HCl (Ropinirole Hcl 2 Mg Tablet) 2 mg PO BID [facility] Last Admin: 10/04/21 21:01 Dose: 2 mg Documented by: Sodium Chloride (0.9 % Sodium Chloride Flush 3 Ml Syringe) 3 ml IVFLUSH [facility] Last Admin: 10/05/21 00:25 Dose: 3 ml Documented by: Sodium Chloride (0.9 % Sodium Chloride Flush 3 Ml Syringe) 3 ml IVFLUSH [facility] Last Admin: 10/05/21 00:25 Dose: 3 ml Documented by: Trazodone HCl (Trazodone Hcl 100 Mg Tablet) 200 mg PO BEDTIME [facility] Last Admin: 10/04/21 21:02 Dose: 200 mg Documented by: Time Spent With Patient Time: Total time spent is greater than 50% in coordination of care (as documented) at patient's floor/unit and/or counseling patient: Quality Stroke Does the patient have a stroke diagnosis?: No VTE Prior VTE?: No VTE Risk Level:: Medical - moderate - high VTE Device Contraindication: N/A - Device Ordered VTE Drug Contraindication: N/A - Med Ordered
[2021-10-05] MEDS: Insulin Glargine,Hum.rec.anlog 100 UNIT/ML 10 ML VIAL 14 UNIT SUBCUT (10:07)
[2021-10-05] MEDS: Gabapentin 300 MG CAPSULE PO (10:07)
[2021-10-05] MEDS: cefTRIAXone sodium 1 GM in 0.9 % Sodium Chloride 50 ML IV (10:07)
[2021-10-05] MEDS: Fluticasone Propionate Nasal 16 GM SPRAY 1 SPRAY NOSTRIL-B (10:07)
[2021-10-05] MEDS: Morphine Sulfate 4 MG/ML CARTRIDGE 3 MG IVPUSH ×2 (10:18→22:04)
[2021-10-05 11:22] LABS: Glucose, Whole Blood 223 mg/dL (60-115)
[2021-10-05 11:40] VITALS: BP 134/56; PULSE 84; RESP 20; TEMP 36.8; O2SAT 98
[2021-10-05] MEDS: Insulin Lispro 100 UNIT/ML 3 ML VIAL SUBCUT ×2 (12:28→17:35)
--- NOTE | 2021-10-05 13:18 | P.PNIM_ITS ---
Subjective Subjective Date of Service: 10/05/21 Interval History: seen and examined this morning feeling better today, less abdominal pain, back pain no nausea, vomiting, or diarrhea no fever or chills Review of Systems Review of Systems: Yes all other systems are reviewed and are negative Constitutional Constitutional: Denies chills and Denies fever(s) Cardiovascular Cardiovascular: Denies chest pain, Denies palpitations and Denies dyspnea Respiratory Respiratory: Denies cough and Denies dyspnea Gastrointestinal Gastrointestinal: Reports abdominal pain, Denies diarrhea, Denies nausea and Denies vomiting Endocrine Endocrine: Denies palpitations Physical Exam Vital Signs: Vital Signs: Last Vital Signs Temp 98.3 F 10/05/21 11:40 Pulse 84 10/05/21 11:40 Resp 20 10/05/21 11:40 BP 134/56 L 10/05/21 11:40 Pulse Ox 98 10/05/21 11:40 Oxygen Flow Rate 2 10/01/21 06:44 BMI result Body Mass Index 90.8 Const: General: comfortable, alert and awake Nutritional Appearance: overweight Orientation/consciousness: patient oriented x3 Resp: Effort & Inspection: normal respiratory effort and able to speak in complete sentences Cardio: Rate: regular rate Heart sounds: S1 normal heart sound present and S2 normal heart sound present GI: Inspection: No distended Palpation (GI): Soft to palpation and nonte nder Neuro: General: patient oriented x3 Objective Data Active Medications Albuterol Sulfate (Albuterol Sulfate (0.042%) 1.25 Mg/3 Ml Vial.Neb) 2.5 mg INHALE Q4H PRN PRN Reason: shortness of breath or wheezing Last Admin: 10/05/21 06:40 Dose: 2.5 mg Documented by: OMAR Albuterol Sulfate (Albuterol Sulfate 90 Mcg 8 Gm Inhaler) 2 puff INHALE Q4H PRN PRN Reason: shortness of breath or wheezing Amlodipine Besylate (Amlodipine Besylate 5 Mg Tablet) 5 mg PO DAILY [facility]; Protocol Last Admin: 10/05/21 10:05 Dose: 5 mg Documented by: JOSEPH Atorvastatin Calcium (Atorvastatin Calcium 80 Mg Tablet) 80 mg PO DAILY [facility] Last Admin: 10/05/21 10:06 Dose: 80 mg Documented by: JOSEPH Bupropion HCl (Bupropion Hcl Xl 150 Mg Tab.Er.24h) 150 mg PO DAILY [facility] Last Admin: 10/05/21 10:05 Dose: 150 mg Documented by: JOSEPH Dextrose (Dextrose 50 % 25 Gm/50 Ml Vial) 25 gm IVPUSH Q15M PRN; Protocol PRN Reason: per Hypoglycemia Standing Ord. Fluticasone Propionate (Fluticasone Propionate Nasal 16 Gm [place]) 1 spray NOSTRIL-B DAILY [facility] Last Admin: 10/05/21 10:07 Dose: 1 spray Documented by: JOSEPH Gabapentin (Gabapentin 300 Mg Capsule) 300 mg PO DAILY [facility] Last Admin: 10/05/21 10:07 Dose: 300 mg Documented by: JOSEPH Gabapentin (Gabapentin 300 Mg Capsule) 900 mg PO BEDTIME [facility] Last Admin: 10/04/21 21:02 Dose: 900 mg Documented by: BROUlysses Glucose (Glucose Gel 15 Gm Gel..Gram.) 15 gm PO Q15M PRN; Protocol PRN Reason: per Hypoglycemia Standing Ord. Heparin Sodium (Porcine) (Heparin Sodium,Porcine 5,000 Unit/Ml Vial) 5,000 unit SUBCUT Q8H [facility] Last Admin: 10/05/21 10:05 Dose: 5,000 unit Documented by: JOSEPH Hydroxyzine HCl (Hydroxyzine Hcl 25 Mg Tablet) 25 mg PO BID [facility] Last Admin: 10/05/21 10:06 Dose: 25 mg Documented by: JOSEPH Ceftriaxone Sodium 1 gm/ (Sodium Chloride) 50 mls @ 100 mls/hr IV Q24H [facility] Stop: 10/06/21 09:29 Last Infusion: 10/05/21 11:46 Dose: 0 mls/hr Documented by: JOSEPH Insulin Glargine (Insulin Glargine,Hum.Rec.Anlog 100 Unit/Ml 10 Ml Vial) 14 unit SUBCUT DAILY [facility] Last Admin: 10/05/21 10:07 Dose: 14 unit Documented by: JOSEPH Insulin Human Lispro (Insulin Lispro 100 Unit/Ml 3 Ml Vial) 0 unit SUBCUT QIDACHS [facility]; Protocol Last Admin: 10/05/21 12:28 Dose: 4 unit Documented by: JOSEPH Lisinopril (Lisinopril 5 Mg Tablet) 5 mg PO DAILY [facility]; Protocol Last Admin: 10/05/21 10:06 Dose: 5 mg Documented by: JOSEPH Montelukast Sodium (Montelukast Sodium 10 Mg Tablet) 10 mg PO BEDTIME [facility] Last Admin: 10/04/21 21:02 Dose: 10 mg Documented by: PONCE Morphine Sulfate (Morphine Sulfate 4 Mg/Ml Cartridge) 3 mg IVPUSH Q3H PRN; Protocol PRN Reason: Pain, Severe (Pain Scale 7-10) Last Admin: 10/05/21 10:18 Dose: 3 mg Documented by: JOSEPH Oxycodone HCl (Oxycodone Hcl Immed Release 5 Mg Tablet) 5 mg PO Q4H PRN PRN Reason: Pain, Severe (Pain Scale 7-10) Last Admin: 10/03/21 15:02 Dose: 5 mg Documented by: ANNA Prochlorperazine Edisylate (Prochlorperazine Edisylate 10 Mg/2 Ml Vial) 5 mg IM Q6H PRN PRN Reason: Nausea and Vomiting Last Admin: 10/02/21 21:17 Dose: 5 mg Documented by: BIRGIT Ropinirole HCl (Ropinirole Hcl 2 Mg Tablet) 2 mg PO BID [facility] Last Admin: 10/05/21 10:05 Dose: 2 mg Documented by: JOSEPH Sodium Chloride (0.9 % Sodium Chloride Flush 3 Ml Syringe) 3 ml IVFLUSH [facility] Last Admin: 10/05/21 10:06 Dose: 3 ml Documented by: JOSEPH Sodium Chloride (0.9 % Sodium Chloride Flush 3 Ml Syringe) 3 ml IVFLUSH [facility] Last Admin: 10/05/21 10:06 Dose: Not Given Documented by: JOSEPH Non-Admin Reason: Duplicate Order Trazodone HCl (Trazodone Hcl 100 Mg Tablet) 200 mg PO BEDTIME [facility] Last Admin: 10/04/21 21:02 Dose: 200 mg Documented by: PONCE Labs CBC & Chem 7: 10/04/21 10:16 10/04/21 10:16 Labs: Laboratory Results - last 24 hr 10/04/21 10/04/21 10/04/21 07:49 16:24 20:39 POC Glucose < 10 L* 131 H 162 H 10/05/21 10/05/21 07:25 11:15 POC Glucose 138 H 223 H Assessment and Plan (1) UTI (urinary tract infection): Status: Acute Plan 71 year old women admitted by general surgery with abdominal pain UTI afebrile, no leukocytosis; no evidence of sepsis Urine culture growing Klebsiella pneumonia Continue IV ceftriaxone, day 4/5 Abdominal pain.? History of multiple abdominal surgeries No evidence obstruction on the CT scan management per surgical team CKD3.? Creatinine Near baseline Avoid nephrotoxic agents Chronic respiratory failure secondary to COPD saturating well on baseline 2 L supplemental oxygen continue prn breathing treatments Diabetes home dose of Levimir converted to Lantus hold metformin SSI, POCs, ADA diet Hypertension Continue lisinopril and amlodipine Mood Continue home medications, wellbutrin, atarax Neuropathy Continue gabapentin HLD continue HLD RLS continue ropinerole, gabapentin Morbid obesity.? Discussed the importance of weight management as this may contribute to worsening of other comorbidities. dvt ppx - heparin Attending Dr. Murdock code status - Full code Quality Stroke Does the patient have a stroke diagnosis?: No VTE Prior VTE?: No VTE Risk Level:: Medical - moderate - high VTE Device Contraindication: N/A - Device Ordered VTE Drug Contraindication: N/A - Med Ordered
[2021-10-05 15:13] VITALS: BP 125/88; PULSE 95; RESP 18; TEMP 36.5; O2SAT 98
[2021-10-05 16:31] LABS: Glucose, Whole Blood 215 mg/dL (60-115)
[2021-10-05 20:00] VITALS: BP 168/62; PULSE 94; RESP 18; TEMP 36.2; O2SAT 97
[2021-10-05 21:53] LABS: Glucose, Whole Blood 140 mg/dL (60-115)
[2021-10-05] MEDS: traZODone HCL 100 MG TABLET 200 MG PO (21:58)
[2021-10-05] MEDS: Gabapentin 300 MG CAPSULE 900 MG PO (21:59)
[2021-10-05] MEDS: Montelukast Sodium 10 MG TABLET PO (21:59)
[2021-10-06] VITALS (7 sets, daily range): BP systolic 111–127; BP diastolic 54–57; PULSE 68–86; RESP 17–20; TEMP 36.3–37.1; O2SAT 95–98
[2021-10-06 07:53] LABS: Glucose, Whole Blood 160 mg/dL (60-115)
[2021-10-06] MEDS: Insulin Glargine,Hum.rec.anlog 100 UNIT/ML 10 ML VIAL 14 UNIT SUBCUT (08:27)
[2021-10-06] MEDS: Insulin Lispro 100 UNIT/ML 3 ML VIAL SUBCUT ×3 (08:27→22:07)
[2021-10-06] MEDS: Heparin Sodium,Porcine 5,000 UNIT/ML VIAL 5000 UNIT SUBCUT ×2 (08:28→16:34)
[2021-10-06] MEDS: cefTRIAXone sodium 1 GM in 0.9 % Sodium Chloride 50 ML IV (08:28)
[2021-10-06] MEDS: lisinopriL 5 MG TABLET PO (08:28)
[2021-10-06] MEDS: 0.9 % Sodium Chloride Flush 3 ML SYRINGE IVFLUSH ×3 (08:28→22:07)
[2021-10-06] MEDS: Atorvastatin Calcium 80 MG TABLET PO (08:28)
[2021-10-06] MEDS: Gabapentin 300 MG CAPSULE PO (08:28)
[2021-10-06] MEDS: hydrOXYzine HCL 25 MG TABLET PO ×2 (08:29→22:06)
[2021-10-06] MEDS: rOPINIRole HCL 2 MG TABLET PO ×2 (08:29→22:08)
[2021-10-06] MEDS: amLODIPine Besylate 5 MG TABLET PO (08:29)
[2021-10-06] MEDS: buPROPion HCl XL 150 MG TAB.ER.24H PO (08:29)
[2021-10-06] MEDS: Fluticasone Propionate Nasal 16 GM SPRAY 1 SPRAY NOSTRIL-B (08:31)
[2021-10-06] MEDS: Morphine Sulfate 4 MG/ML CARTRIDGE 3 MG IVPUSH ×2 (08:42→14:10)
--- NOTE | 2021-10-06 09:57 | PM.PNGS ---
Subjective Subjective Date of Service: 10/06/21 Interval history: Abdominal pain is improved today. She is tolerating regular diet without nausea or vomiting. She does have occasional waves of increased pain in the upper abdomen. Bowels are moving daily. Physical Exam Vital Signs: Vital Signs: Last Vital Signs Temp 98.7 F 10/06/21 07:43 Pulse 80 10/06/21 07:43 Resp 20 10/06/21 07:43 BP 120/56 L 10/06/21 07:43 Pulse Ox 95 10/06/21 07:43 Oxygen Flow Rate 2 10/01/21 06:44 BMI result Body Mass Index 90.8 Const: General: cooperative and no acute distress Nutritional Appearance: obese Orientation/consciousness: patient oriented x3 Limitations: no limitations Resp: Effort & Inspection: normal respiratory effort GI: Inspection: Yes normal to inspection Palpation (GI): Soft to palpation and Tenderness to palpation present (GI) in the LUQ and in the RUQ Percussion: Yes normal to percussion Auscultation: normal bowel sounds Rectal Exam - Female: deferred Skin: General skin exam: no rashes or lesions noted Neuro: General: patient oriented x3 Extrem: General: Yes normal to inspection Objective Data Active Medications Albuterol Sulfate (Albuterol Sulfate (0.042%) 1.25 Mg/3 Ml Vial.Neb) 2.5 mg INHALE Q4H PRN PRN Reason: shortness of breath or wheezing Last Admin: 10/05/21 06:40 Dose: 2.5 mg Documented by: OMAR Albuterol Sulfate (Albuterol Sulfate 90 Mcg 8 Gm Inhaler) 2 puff INHALE Q4H PRN PRN Reason: shortness of breath or wheezing Amlodipine Besylate (Amlodipine Besylate 5 Mg Tablet) 5 mg PO DAILY [facility]; Protocol Last Admin: 10/06/21 08:29 Dose: 5 mg Documented by: LEIGHTON Atorvastatin Calcium (Atorvastatin Calcium 80 Mg Tablet) 80 mg PO DAILY [facility] Last Admin: 10/06/21 08:28 Dose: 80 mg Documented by: LEIGHTON Bupropion HCl (Bupropion Hcl Xl 150 Mg Tab.Er.24h) 150 mg PO DAILY [facility] Last Admin: 10/06/21 08:29 Dose: 150 mg Documented by: LEIGHTON Dextrose (Dextrose 50 % 25 Gm/50 Ml Vial) 25 gm IVPUSH Q15M PRN; Protocol PRN Reason: per Hypoglycemia Standing Ord. Fluticasone Propionate (Fluticasone Propionate Nasal 16 Gm [place]) 1 spray NOSTRIL-B DAILY [facility] Last Admin: 10/06/21 08:31 Dose: 1 spray Documented by: LEIGHTON Gabapentin (Gabapentin 300 Mg Capsule) 300 mg PO DAILY [facility] Last Admin: 10/06/21 08:28 Dose: 300 mg Documented by: LEIGHTON Gabapentin (Gabapentin 300 Mg Capsule) 900 mg PO BEDTIME [facility] Last Admin: 10/05/21 21:59 Dose: 900 mg Documented by: LEIGHTON Glucose (Glucose Gel 15 Gm Gel..Gram.) 15 gm PO Q15M PRN; Protocol PRN Reason: per Hypoglycemia Standing Ord. Heparin Sodium (Porcine) (Heparin Sodium,Porcine 5,000 Unit/Ml Vial) 5,000 unit SUBCUT Q8H [facility] Last Admin: 10/06/21 08:28 Dose: 5,000 unit Documented by: LEIGHTON Hydroxyzine HCl (Hydroxyzine Hcl 25 Mg Tablet) 25 mg PO BID [facility] Last Admin: 10/06/21 08:29 Dose: 25 mg Documented by: LEIGHTON Insulin Glargine (Insulin Glargine,Hum.Rec.Anlog 100 Unit/Ml 10 Ml Vial) 14 unit SUBCUT DAILY [facility] Last Admin: 10/06/21 08:27 Dose: 14 unit Documented by: LEIGHTON Insulin Human Lispro (Insulin Lispro 100 Unit/Ml 3 Ml Vial) 0 unit SUBCUT QIDACHS [facility]; Protocol Last Admin: 10/06/21 08:27 Dose: 2 unit Documented by: LEIGHTON Lisinopril (Lisinopril 5 Mg Tablet) 5 mg PO DAILY [facility]; Protocol Last Admin: 10/06/21 08:28 Dose: 5 mg Documented by: LEIGHTON Montelukast Sodium (Montelukast Sodium 10 Mg Tablet) 10 mg PO BEDTIME [facility] Last Admin: 10/05/21 21:59 Dose: 10 mg Documented by: LEIGHTON Morphine Sulfate (Morphine Sulfate 4 Mg/Ml Cartridge) 3 mg IVPUSH Q3H PRN; Protocol PRN Reason: Pain, Severe (Pain Scale 7-10) Last Admin: 10/06/21 08:42 Dose: 3 mg Documented by: LEIGHTON Oxycodone HCl (Oxycodone Hcl Immed Release 5 Mg Tablet) 5 mg PO Q4H PRN PRN Reason: Pain, Severe (Pain Scale 7-10) Last Admin: 10/03/21 15:02 Dose: 5 mg Documented by: ANNA Prochlorperazine Edisylate (Prochlorperazine Edisylate 10 Mg/2 Ml Vial) 5 mg IM Q6H PRN PRN Reason: Nausea and Vomiting Last Admin: 10/02/21 21:17 Dose: 5 mg Documented by: BIRGIT Ropinirole HCl (Ropinirole Hcl 2 Mg Tablet) 2 mg PO BID [facility] Last Admin: 10/06/21 08:29 Dose: 2 mg Documented by: LEIGHTON Sodium Chloride (0.9 % Sodium Chloride Flush 3 Ml Syringe) [facility] Last Admin: 10/06/21 08:28 Dose: 3 ml Documented by: LEIGHTON Sodium Chloride (0.9 % Sodium Chloride Flush 3 Ml Syringe) 3 ml IVFLUSH [facility] Last Admin: 10/06/21 09:54 Dose: Not Given Documented by: LEIGHTON Non-Admin Reason: Previously Administered Trazodone HCl (Trazodone Hcl 100 Mg Tablet) 200 mg PO BEDTIME [facility] Last Admin: 10/05/21 21:58 Dose: 200 mg Documented by: LEIGHTON Labs CBC & Chem 7: 10/04/21 10:16 10/04/21 10:16 Labs: Laboratory Results - last 24 hr 10/05/21 10/05/21 10/05/21 11:15 16:27 21:46 POC Glucose 223 H 215 H 140 H 10/06/21 07:48 POC Glucose 160 H Procedures Date of Service Date of Service: 10/06/21 Progress Note: A&P Assessment and plan (1) Abdominal pain: Status: Acute Plan Overall patient does feel improved but does continue to complain of upper abdominal pain. She denies any urinary symptoms. She is tolerating regular diet without nausea or vomiting. On exam she is tender in the epigastrium and upper quadrants. Will observe for 24 hours more with possible discharge in a.m. tomorrow. Discussed with patient's son as well. Fall Risk Details Current Medications: Current Medications Albuterol Sulfate (Albuterol Sulfate (0.042%) 1.25 Mg/3 Ml Vial.Neb) 2.5 mg INHALE Q4H PRN PRN Reason: shortness of breath or wheezing Last Admin: 10/05/21 06:40 Dose: 2.5 mg Documented by: Albuterol Sulfate (Albuterol Sulfate 90 Mcg 8 Gm Inhaler) 2 puff INHALE Q4H PRN PRN Reason: shortness of breath or wheezing Amlodipine Besylate (Amlodipine Besylate 5 Mg Tablet) 5 mg PO DAILY [facility]; Protocol Last Admin: 10/06/21 08:29 Dose: 5 mg Documented by: Atorvastatin Calcium (Atorvastatin Calcium 80 Mg Tablet) 80 mg PO DAILY [facility] Last Admin: 10/06/21 08:28 Dose: 80 mg Documented by: Bupropion HCl (Bupropion Hcl Xl 150 Mg Tab.Er.24h) 150 mg PO DAILY [facility] Last Admin: 10/06/21 08:29 Dose: 150 mg Documented by: Dextrose (Dextrose 50 % 25 Gm/50 Ml Vial) 25 gm IVPUSH Q15M PRN; Protocol PRN Reason: per Hypoglycemia Standing Ord. Fluticasone Propionate (Fluticasone Propionate Nasal 16 Gm [place]) 1 spray NOSTRIL-B DAILY [facility] Last Admin: 10/06/21 08:31 Dose: 1 spray Documented by: Gabapentin (Gabapentin 300 Mg Capsule) 300 mg PO DAILY [facility] Last Admin: 10/06/21 08:28 Dose: 300 mg Documented by: Gabapentin (Gabapentin 300 Mg Capsule) 900 mg PO BEDTIME [facility] Last Admin: 10/05/21 21:59 Dose: 900 mg Documented by: Glucose (Glucose Gel 15 Gm Gel..Gram.) 15 gm PO Q15M PRN; Protocol PRN Reason: per Hypoglycemia Standing Ord. Heparin Sodium (Porcine) (Heparin Sodium,Porcine 5,000 Unit/Ml Vial) 5,000 unit SUBCUT Q8H [facility] Last Admin: 10/06/21 08:28 Dose: 5,000 unit Documented by: Hydroxyzine HCl (Hydroxyzine Hcl 25 Mg Tablet) 25 mg PO BID [facility] Last Admin: 10/06/21 08:29 Dose: 25 mg Documented by: Insulin Glargine (Insulin Glargine,Hum.Rec.Anlog 100 Unit/Ml 10 Ml Vial) 14 unit SUBCUT DAILY [facility] Last Admin: 10/06/21 08:27 Dose: 14 unit Documented by: Insulin Human Lispro (Insulin Lispro 100 Unit/Ml 3 Ml Vial) 0 unit SUBCUT QIDACHS [facility]; Protocol Last Admin: 10/06/21 08:27 Dose: 2 unit Documented by: Lisinopril (Lisinopril 5 Mg Tablet) 5 mg PO DAILY [facility]; Protocol Last Admin: 10/06/21 08:28 Dose: 5 mg Documented by: Montelukast Sodium (Montelukast Sodium 10 Mg Tablet) 10 mg PO BEDTIME [facility] Last Admin: 10/05/21 21:59 Dose: 10 mg Documented by: Morphine Sulfate (Morphine Sulfate 4 Mg/Ml Cartridge) 3 mg IVPUSH Q3H PRN; Protocol PRN Reason: Pain, Severe (Pain Scale 7-10) Last Admin: 10/06/21 08:42 Dose: 3 mg Documented by: Oxycodone HCl (Oxycodone Hcl Immed Release 5 Mg Tablet) 5 mg PO Q4H PRN PRN Reason: Pain, Severe (Pain Scale 7-10) Last Admin: 10/03/21 15:02 Dose: 5 mg Documented by: Prochlorperazine Edisylate (Prochlorperazine Edisylate 10 Mg/2 Ml Vial) 5 mg IM Q6H PRN PRN Reason: Nausea and Vomiting Last Admin: 10/02/21 21:17 Dose: 5 mg Documented by: Ropinirole HCl (Ropinirole Hcl 2 Mg Tablet) 2 mg PO BID [facility] Last Admin: 10/06/21 08:29 Dose: 2 mg Documented by: Sodium Chloride (0.9 % Sodium Chloride Flush 3 Ml Syringe) 3 ml IVFLUSH [facility] Last Admin: 10/06/21 08:28 Dose: 3 ml Documented by: Sodium Chloride (0.9 % Sodium Chloride Flush 3 Ml Syringe) 3 ml IVFLUSH [facility] Last Admin: 10/06/21 09:54 Dose: Not Given Documented by: Trazodone HCl (Trazodone Hcl 100 Mg Tablet) 200 mg PO BEDTIME [facility] Last Admin: 10/05/21 21:58 Dose: 200 mg Documented by: Time Spent With Patient Time: Total time spent is greater than 50% in coordination of care (as documented) at patient's floor/unit and/or counseling patient: Quality Stroke Does the patient have a stroke diagnosis?: No VTE Prior VTE?: No VTE Risk Level:: Medical - moderate - high VTE Device Contraindication: N/A - Device Ordered VTE Drug Contraindication: N/A - Med Ordered
--- NOTE | 2021-10-06 11:19 | P.PNIM_ITS ---
Subjective Subjective Date of Service: 10/06/21 Interval History: Seen and examined this morning Abdominal pain and back pain are improving She is tolerating a diet without nausea, vomiting, diarrhea Review of Systems Review of Systems: Yes all other systems are reviewed and are negative Constitutional Constitutional: Denies chills and Denies fever(s) Cardiovascular Cardiovascular: Denies chest pain, Denies palpitations and Denies dyspnea Respiratory Respiratory: Denies cough and Denies dyspnea Gastrointestinal Gastrointestinal: Reports abdominal pain, Denies nausea and Denies vomiting Endocrine Endocrine: Denies palpitations Physical Exam Vital Signs: Vital Signs: Last Vital Signs Temp 98.7 F 10/06/21 07:43 Pulse 80 10/06/21 07:43 Resp 20 10/06/21 07:43 BP 120/56 L 10/06/21 07:43 Pulse Ox 95 10/06/21 07:43 Oxygen Flow Rate 2 10/01/21 06:44 BMI result Body Mass Index 90.8 Const: General: comfortable, alert and awake Nutritional Appearance: overweight Orientation/consciousness: patient oriented x3 Resp: Other: scattered wheezing; no tachypnea Effort & Inspection: normal respiratory effort and able to speak in complete sentences Cardio: Rate: regular rate Heart sounds: S1 normal heart sound present and S2 normal heart sound present GI: Inspection: No distended Palpation (GI): Soft to palpation and nontender Neuro: General: patient oriented x3 Objective Data Active Medications Albuterol Sulfate (Albuterol Sulfate (0.042%) 1.25 Mg/3 Ml Vial.Neb) 2.5 mg INHALE Q4H PRN PRN Reason: shortness of breath or wheezing Last Admin: 10/05/21 06:40 Dose: 2.5 mg Documented by: OMAR Albuterol Sulfate (Albuterol Sulfate 90 Mcg 8 Gm Inhaler) 2 puff INHALE Q4H PRN PRN Reason: shortness of breath or wheezing Amlodipine Besylate (Amlodipine Besylate 5 Mg Tablet) 5 mg PO DAILY [facility]; Protocol Last Admin: 10/06/21 08:29 Dose: 5 mg Documented by: LEIGHTON Atorvastatin Calcium (Atorvastatin Calcium 80 Mg Tablet) 80 mg PO DAILY [facility] Last Admin: 10/06/21 08:28 Dose: 80 mg Documented by: LEIGHTON Bupropion HCl (Bupropion Hcl Xl 150 Mg Tab.Er.24h) 150 mg PO DAILY [facility] Last Admin: 10/06/21 08:29 Dose: 150 mg Documented by: LEIGHTON Dextrose (Dextrose 50 % 25 Gm/50 Ml Vial) 25 gm IVPUSH Q15M PRN; Protocol PRN Reason: per Hypoglycemia Standing Ord. Fluticasone Propionate (Fluticasone Propionate Nasal 16 Gm [place]) 1 spray NOSTRIL-B DAILY [facility] Last Admin: 10/06/21 08:31 Dose: 1 spray Documented by: LEIGHTON Gabapentin (Gabapentin 300 Mg Capsule) 300 mg PO DAILY [facility] Last Admin: 10/06/21 08:28 Dose: 300 mg Documented by: LEIGHTON Gabapentin (Gabapentin 300 Mg Capsule) 900 mg PO BEDTIME [facility] Last Admin: 10/05/21 21:59 Dose: 900 mg Documented by: LEIGHTON Glucose (Glucose Gel 15 Gm Gel..Gram.) 15 gm PO Q15M PRN; Protocol PRN Reason: per Hypoglycemia Standing Ord. Heparin Sodium (Porcine) (Heparin Sodium,Porcine 5,000 Unit/Ml Vial) 5,000 unit SUBCUT Q8H [facility] Last Admin: 10/06/21 08:28 Dose: 5,000 unit Documented by: LEIGHTON Hydroxyzine HCl (Hydroxyzine Hcl 25 Mg Tablet) 25 mg PO BID [facility] Last Admin: 10/06/21 08:29 Dose: 25 mg Documented by: LEIGHTON Insulin Glargine (Insulin Glargine,Hum.Rec.Anlog 100 Unit/Ml 10 Ml Vial) 14 unit SUBCUT DAILY [facility] Last Admin: 10/06/21 08:27 Dose: 14 unit Documented by: LEIGHTON Insulin Human Lispro (Insulin Lispro 100 Unit/Ml 3 Ml Vial) 0 unit SUBCUT QIDACHS [facility]; Protocol Last Admin: 10/06/21 08:27 Dose: 2 unit Documented by: LEIGHTON Lisinopril (Lisinopril 5 Mg Tablet) 5 mg PO DAILY [facility]; Protocol Last Admin: 10/06/21 08:28 Dose: 5 mg Documented by: LEIGHTON Montelukast Sodium (Montelukast Sodium 10 Mg Tablet) 10 mg PO BEDTIME [facility] Last Admin: 10/05/21 21:59 Dose: 10 mg Documented by: LEIGHTON Morphine Sulfate (Morphine Sulfate 4 Mg/Ml Cartridge) 3 mg IVPUSH Q3H PRN; Protocol PRN Reason: Pain, Severe (Pain Scale 7-10) Last Admin: 10/06/21 08:42 Dose: 3 mg Documented by: LEIGHTON Oxycodone HCl (Oxycodone Hcl Immed Release 5 Mg Tablet) 5 mg PO Q6H PRN PRN Reason: Pain, Severe (Pain Scale 7-10) Prochlorperazine Edisylate (Prochlorperazine Edisylate 10 Mg/2 Ml Vial) 5 mg IM Q6H PRN PRN Reason: Nausea and Vomiting Last Admin: 10/02/21 21:17 Dose: 5 mg Documented by: BIRGIT Ropinirole HCl (Ropinirole Hcl 2 Mg Tablet) 2 mg PO BID [facility] Last Admin: 10/06/21 08:29 Dose: 2 mg Documented by: LEIGHTON Sodium Chloride (0.9 % Sodium Chloride Flush 3 Ml Syringe) 3 ml IVFLUSH [facility] Last Admin: 10/06/21 08:28 Dose: 3 ml Documented by: LEIGHTON Sodium Chloride (0.9 % Sodium Chloride Flush 3 Ml Syringe) 3 ml IVFLUSH [facility] Last Admin: 10/06/21 09:54 Dose: Not Given Documented by: LEIGHTON Non-Admin Reason: Previously Administered Trazodone HCl (Trazodone Hcl 100 Mg Tablet) 200 mg PO BEDTIME [facility] Last Admin: 10/05/21 21:58 Dose: 200 mg Documented by: LEIGHTON Labs CBC & Chem 7: 10/04/21 10:16 10/04/21 10:16 Labs: Laboratory Results - last 24 hr 10/05/21 10/05/21 10/05/21 11:15 16:27 21:46 POC Glucose 223 H 215 H 140 H 10/06/21 07:48 POC Glucose 160 H Assessment and Plan (1) UTI (urinary tract infection): Status: Acute Plan 71 year old women admitted by general surgery with abdominal pain UTI afebrile, no leukocytosis; no evidence of sepsis Urine culture growing Klebsiella pneumonia Continue IV ceftriaxone, day 5/5 Abdominal pain.? Improving History of multiple abdominal surgeries. No evidence obstruction on the CT scan management per surgical team CKD3.? Creatinine Near baseline Avoid nephrotoxic agents Chronic respiratory failure secondary to COPD intermittent wheezing, but no respiratory symptoms saturating well on baseline 2 L supplemental oxygen continue prn breathing treatments Diabetes home dose of Levimir converted to Lantus hold metformin SSI, POCs, ADA diet Hypertension Continue lisinopril and amlodipine Mood Continue home medications, wellbutrin, atarax Neuropathy Continue gabapentin HLD continue HLD RLS continue ropinerole, gabapentin Morbid obesity.? Discussed the importance of weight management as this may contribute to worsening of other comorbidities. dvt ppx - heparin Attending Dr. Murdock code status - Full code Quality Stroke Does the patient have a stroke diagnosis?: No VTE Prior VTE?: No VTE Risk Level:: Medical - moderate - high VTE Device Contraindication: N/A - Device Ordered VTE Drug Contraindication: N/A - Med Ordered
[2021-10-06 11:39] LABS: Glucose, Whole Blood 173 mg/dL (60-115)
[2021-10-06] MEDS: Albuterol Sulfate (0.042%) 1.25 MG/3 ML VIAL.NEB 2.5 MG INHALE (12:41)
[2021-10-06 16:27] LABS: Glucose, Whole Blood 123 mg/dL (60-115)
[2021-10-06 20:28] LABS: Glucose, Whole Blood 179 mg/dL (60-115)
[2021-10-06] MEDS: Montelukast Sodium 10 MG TABLET PO (22:06)
[2021-10-06] MEDS: Gabapentin 300 MG CAPSULE 900 MG PO (22:06)
[2021-10-06] MEDS: traZODone HCL 100 MG TABLET 200 MG PO (22:07)
[2021-10-06] MEDS: oxyCODONE HCl Immed Release 5 MG TABLET PO (22:15)
[2021-10-07] VITALS: BP 146/58; PULSE 74; RESP 20; TEMP 36.8; O2SAT 96
[2021-10-07] MEDS: Heparin Sodium,Porcine 5,000 UNIT/ML VIAL 5000 UNIT SUBCUT ×2 (00:59→08:37)
[2021-10-07] MEDS: 0.9 % Sodium Chloride Flush 3 ML SYRINGE IVFLUSH ×3 (01:05→08:37)
[2021-10-07 03:34] VITALS: BP 101/50; PULSE 64; RESP 20; TEMP 36.7; O2SAT 98
[2021-10-07 08:00] VITALS: BP 137/69; PULSE 74; RESP 18; TEMP 36.5; O2SAT 98
[2021-10-07 08:18] LABS: Glucose, Whole Blood 158 mg/dL (60-115)
[2021-10-07] MEDS: Gabapentin 300 MG CAPSULE PO (08:35)
[2021-10-07] MEDS: rOPINIRole HCL 2 MG TABLET PO (08:35)
[2021-10-07] MEDS: buPROPion HCl XL 150 MG TAB.ER.24H PO (08:35)
[2021-10-07] MEDS: oxyCODONE HCl Immed Release 5 MG TABLET PO (08:35)
[2021-10-07] MEDS: amLODIPine Besylate 5 MG TABLET PO (08:35)
[2021-10-07] MEDS: lisinopriL 5 MG TABLET PO (08:35)
[2021-10-07] MEDS: Atorvastatin Calcium 80 MG TABLET PO (08:35)
[2021-10-07] MEDS: hydrOXYzine HCL 25 MG TABLET PO (08:35)
[2021-10-07] MEDS: Insulin Lispro 100 UNIT/ML 3 ML VIAL SUBCUT ×2 (08:36→11:55)
[2021-10-07] MEDS: Fluticasone Propionate Nasal 16 GM SPRAY 1 SPRAY NOSTRIL-B (08:44)
--- NOTE | 2021-10-07 09:58 | HO.PM.IMPN ---
Subjective Subjective Date of Service: 10/07/21 Review of Systems Follow up consultation abd pain denied nausea or vomiting Doing better today Physical Exam Vital Signs: Vital Signs: Last Vital Signs Temp 97.7 F 10/07/21 08:00 Pulse 74 10/07/21 08:00 Resp 18 10/07/21 08:00 BP 137/69 10/07/21 08:00 Pulse Ox 98 10/07/21 08:00 Oxygen Flow Rate 2 10/01/21 06:44 BMI result Body Mass Index 90.8 Appearing in no acute distress lung sounds are clear to auscultation heart regular rate rhythm, clear S1, S2 positive bowel sounds, abdomen is soft, nontender neuro patient is alert x3, no focal deficits Objective Data Active Medications Albuterol Sulfate (Albuterol Sulfate (0.042%) 1.25 Mg/3 Ml Vial.Neb) 2.5 mg INHALE Q4H PRN PRN Reason: shortness of breath or wheezing Last Admin: 10/06/21 12:41 Dose: 2.5 mg Documented by: NAEEM Albuterol Sulfate (Albuterol Sulfate 90 Mcg 8 Gm Inhaler) 2 puff INHALE Q4H PRN PRN Reason: shortness of breath or wheezing Amlodipine Besylate (Amlodipine Besylate 5 Mg Tablet) 5 mg PO DAILY [facility]; Protocol Last Admin: 10/07/21 08:35 Dose: 5 mg Documented by: EVONNE Atorvastatin Calcium (Atorvastatin Calcium 80 Mg Tablet) 80 mg PO DAILY [facility]S [facility] Last Admin: 10/07/21 08:35 Dose: 80 mg Documented by: EVONNE Bupropion HCl (Bupropion Hcl Xl 150 Mg Tab.Er.24h) 150 mg PO DAILY [facility] 234 B[facility]S [facility] Last Admin: 10/07/21 08:35 Dose: 150 mg Documented by: EVONNE Dextrose (Dextrose 50 % 25 Gm/50 Ml Vial) 25 gm IVPUSH Q15M PRN; Protocol PRN Reason: per Hypoglycemia Standing Ord. Fluticasone Propionate (Fluticasone Propionate Nasal 16 Gm [place]) 1 spray NOSTRIL-B DAILY [facility] 234 [facility]S [facility] Last Admin: 10/07/21 08:44 Dose: 1 spray Documented by: EVONNE Gabapentin (Gabapentin 300 Mg Capsule) 300 mg PO DAILY [facility] 234 [facility]S [facility] Last Admin: 10/07/21 08:35 Dose: 300 mg Documented by: EVONNE Gabapentin (Gabapentin 300 Mg Capsule) 900 mg PO BEDTIME [facility] 234 [facility]EDS [facility] Last Admin: 10/06/21 22:06 Dose: 900 mg Documented by: SUMA Glucose (Glucose Gel 15 Gm Gel..Gram.) 15 gm PO Q15M PRN; Protocol PRN Reason: per Hypoglycemia Standing Ord. Heparin Sodium (Porcine) (Heparin Sodium,Porcine 5,000 Unit/Ml Vial) 5,000 unit SUBCUT Q8H [facility] 234 B[facility]S [facility] Last Admin: 10/07/21 08:37 Dose: 5,000 unit Documented by: EVONNE Hydroxyzine HCl (Hydroxyzine Hcl 25 Mg Tablet) 25 mg PO BID [facility] 234 B[facility]S [facility] Last Admin: 10/07/21 08:35 Dose: 25 mg Documented by: EVONNE Insulin Glargine (Insulin Glargine,Hum.Rec.Anlog 100 Unit/Ml 10 Ml Vial) 14 unit SUBCUT DAILY [facility] 234 BEDS [facility] Last Admin: 10/06/21 08:27 Dose: 14 unit Documented by: LEIGHTON Insulin Human Lispro (Insulin Lispro 100 Unit/Ml 3 Ml Vial) 0 unit SUBCUT QIDACHS [facility] 234 BEDS [facility]; Protocol Last Admin: 10/07/21 08:36 Dose: 2 unit Documented by: EVONNE Lisinopril (Lisinopril 5 Mg Tablet) 5 mg PO DAILY [facility] 234 B[facility]S [facility]; Protocol Last Admin: 10/07/21 08:35 Dose: 5 mg Documented by: EVONNE Montelukast Sodium (Montelukast Sodium 10 Mg Tablet) 10 mg PO BEDTIME [facility] 234 BEDS [facility] Last Admin: 10/06/21 22:06 Dose: 10 mg Documented by: SUMA Oxycodone HCl (Oxycodone Hcl Immed Release 5 Mg Tablet) 5 mg PO Q6H PRN PRN Reason: Pain, Severe (Pain Scale 7-10) Last Admin: 10/07/21 08:35 Dose: 5 mg Documented by: EVONNE Prochlorperazine Edisylate (Prochlorperazine Edisylate 10 Mg/2 Ml Vial) 5 mg IM Q6H PRN PRN Reason: Nausea and Vomiting Last Admin: 10/02/21 21:17 Dose: 5 mg Documented by: BIRGIT Ropinirole HCl (Ropinirole Hcl 2 Mg Tablet) 2 mg PO BID [facility] 234 B[facility]S AT [facility] Last Admin: 10/07/21 08:35 Dose: 2 mg Documented by: EVONNE Sodium Chloride (0.9 % Sodium Chloride Flush 3 Ml Syringe) 3 ml IVFLUSH QSHIFT [facility]CLUDE 234 BEDS AT [facility] Last Admin: 10/07/21 08:37 Dose: 3 ml Documented by: EVONNE Sodium Chloride (0.9 % Sodium Chloride Flush 3 Ml Syringe) 3 ml IVFLUSH QSHIFT [facility]CLUDE 234 BEDS AT [facility] Last Admin: 10/07/21 08:45 Dose: Not Given Documented by: EVONNE Non-Admin Reason: Previously Administered Trazodone HCl (Trazodone Hcl 100 Mg Tablet) 200 mg PO BEDTIME [facility] 234 BEDS AT [facility] Last Admin: 10/06/21 22:07 Dose: 200 mg Documented by: SUMA Labs CBC & Chem 7: 10/04/21 10:16 10/04/21 10:16 Labs: Laboratory Results - last 24 hr 10/06/21 10/06/21 10/06/21 11:21 15:32 20:06 POC Glucose 173 H 123 H 179 H 10/07/21 08:14 POC Glucose 158 H Assessment and Plan (1) Abdominal pain: Status: Acute Plan 71 year old women admitted by general surgery with abdominal pain UTI afebrile, no leukocytosis; no evidence of sepsis Urine culture growing Klebsiella pneumonia Continue IV ceftriaxone, day 5/5 Abdominal pain.? Improving History of multiple abdominal surgeries. No evidence obstruction on the CT scan management per surgical team CKD3.? Creatinine Near baseline Avoid nephrotoxic agents Chronic respiratory failure secondary to COPD intermittent wheezing, but no respiratory symptoms saturating well on baseline 2 L supplemental oxygen continue prn breathing treatments Diabetes home dose of Levimir converted to Lantus hold metformin SSI, POCs, ADA diet Hypertension Continue lisinopril and amlodipine Mood Continue home medications, wellbutrin, atarax Neuropathy Continue gabapentin HLD continue HLD RLS continue ropinerole, gabapentin Morbid obesity.? Discussed the importance of weight management as this may contribute to worsening of other comorbidities. dvt ppx - heparin Attending Dr. Smith code status - Full code DISPO. Patient may likely be discharged today MEDICAL CONSULTATION COMPLETE. WILL SIGN OFF Quality Stroke Does the patient have a stroke diagnosis?: No VTE Prior VTE?: No VTE Risk Level:: Medical - moderate - high VTE Device Contraindication: N/A - Device Ordered VTE Drug Contraindication: N/A - Med Ordered
--- NOTE | 2021-10-07 10:48 | P.PNGS_ITS ---
Subjective Subjective Date of Service: 10/07/21 Interval history: Main complaint is back pain Otherwise tolerating diet Says she has constipation but this chronic Says she is ready to go home later today Physical Exam Vital Signs: Vital Signs: Last Vital Signs Temp 97.7 F 10/07/21 08:00 Pulse 74 10/07/21 08:00 Resp 18 10/07/21 08:00 BP 137/69 10/07/21 08:00 Pulse Ox 98 10/07/21 08:00 Oxygen Flow Rate 2 10/01/21 06:44 BMI result Body Mass Index 90.8 Const: Other: A little short of breath, as baseline General: comfortable and no acute distress Resp: Other: Using O2, good air entry bilaterally although with some shortness of breath periodically, as baseline Effort & Inspection: No symmetric chest movement Cardio: Other: Regular rhythm GI: Other: Abdomen obese but soft, no guarding rebound, vague diffuse tenderness, mild Objective Data Active Medications Albuterol Sulfate (Albuterol Sulfate (0.042%) 1.25 Mg/3 Ml Vial.Neb) 2.5 mg INHALE Q4H PRN PRN Reason: shortness of breath or wheezing Last Admin: 10/06/21 12:41 Dose: 2.5 mg Documented by: NAEEM Albuterol Sulfate (Albuterol Sulfate 90 Mcg 8 Gm Inhaler) 2 puff INHALE Q4H PRN PRN Reason: shortness of breath or wheezing Amlodipine Besylate (Amlodipine Besylate 5 Mg Tablet) 5 mg PO DAILY [facility]; P rotocol Last Admin: 10/07/21 08:35 Dose: 5 mg Documented by: EVONNE Atorvastatin Calcium (Atorvastatin Calcium 80 Mg Tablet) 80 mg PO DAILY [facility] Last Admin: 10/07/21 08:35 Dose: 80 mg Documented by: EVONNE Bupropion HCl (Bupropion Hcl Xl 150 Mg Tab.Er.24h) 150 mg PO DAILY [facility] Last Admin: 10/07/21 08:35 Dose: 150 mg Documented by: EVONNE Dextrose (Dextrose 50 % 25 Gm/50 Ml Vial) 25 gm IVPUSH Q15M PRN; Protocol PRN Reason: per Hypoglycemia Standing Ord. Fluticasone Propionate (Fluticasone Propionate Nasal 16 Gm Custer) 1 spray N OSTRIL-B DAILY [facility] Last Admin: 10/07/21 08:44 Dose: 1 spray Documented by: EVONNE Gabapentin (Gabapentin 300 Mg Capsule) 300 mg PO DAILY [facility] Last Admin: 10/07/21 08:35 Dose: 300 mg Documented by: EVONNE Gabapentin (Gabapentin 300 Mg Capsule) 900 mg PO BEDTIME [facility] Last Admin: 10/06/21 22:06 Dose: 900 mg Documented by: SUMA Glucose (Glucose Gel 15 Gm Gel..Gram.) 15 gm PO Q15M PRN; Protocol PRN Reason: per Hypoglycemia Standing Ord. Heparin Sodium (Porcine) (Heparin Sodium,Porcine 5,000 Unit/Ml Vial) 5,000 unit SUBCUT Q8H [facility] Last Admin: 10/07/21 08:37 Dose: 5,000 unit Documented by: EVONNE Hydroxyzine HCl (Hydroxyzine Hcl 25 Mg Tablet) 25 mg PO BID [facility] Last Admin: 10/07/21 08:35 Dose: 25 mg Documented by: EVONNE Insulin Glargine (Insulin Glargine,Hum.Rec.Anlog 100 Unit/Ml 10 Ml Vial) 14 unit SUBCUT DAILY [facility] Last Admin: 10/06/21 08:27 Dose: 14 unit Documented by: CASTJOI Insulin Human Lispro (Insulin Lispro 100 Unit/Ml 3 Ml Vial) 0 unit SUBCUT QIDACHS [facility]; Protocol Last Admin: 10/07/21 08:36 Dose: 2 unit Documented by: EVONNE Lisinopril (Lisinopril 5 Mg Tablet) 5 mg PO DAILY [facility]; Protocol Last Admin: 10/07/21 08:35 Dose: 5 mg Documented by: EVONNE Montelukast Sodium (Montelukast Sodium 10 Mg Tablet) 10 mg PO BEDTIME [facility] Last Admin: 10/06/21 22:06 Dose: 10 mg Documented by: SUMA Oxycodone HCl (Oxycodone Hcl Immed Release 5 Mg Tablet) 5 mg PO Q6H PRN PRN Reason: Pain, Severe (Pain Scale 7-10) Last Admin: 10/07/21 08:35 Dose: 5 mg Documented by: EVONNE Prochlorperazine Edisylate (Prochlorperazine Edisylate 10 Mg/2 Ml Vial) 5 mg IM Q6H PRN PRN Reason: Nausea and Vomiting Last Admin: 10/02/21 21:17 Dose: 5 mg Documented by: BIRGIT Ropinirole HCl (Ropinirole Hcl 2 Mg Tablet) 2 mg PO BID [facility] Last Admin: 10/07/21 08:35 Dose: 2 mg Documented by: EVONNE Sodium Chloride (0.9 % Sodium Chloride Flush 3 Ml Syringe) [facility] Last Admin: 10/07/21 08:37 Dose: 3 ml Documented by: EVONNE Sodium Chloride (0.9 % Sodium Chloride Flush 3 Ml Syringe) [facility] Last Admin: 10/07/21 08:45 Dose: Not Given Documented by: EVONNE Non-Admin Reason: Previously Administered Trazodone HCl (Trazodone Hcl 100 Mg Tablet) 200 mg PO BEDTIME [facility] Last Admin: 10/06/21 22:07 Dose: 200 mg Documented by: SUMA Labs CBC & Chem 7: 10/04/21 10:16 10/04/21 10:16 Labs: Laboratory Results - last 24 hr 10/06/21 10/06/21 10/06/21 11:21 15:32 20:06 POC Glucose 173 H 123 H 179 H 10/07/21 08:14 POC Glucose 158 H Procedures Date of Service Date of Service: 10/07/21 Progress Note: A&P Assessment and plan (1) Abdominal pain: Status: Acute Assessment and Plan: CT scans reviewed multiple times - no obvious etiology Patient does have chronic constipation She says she is to be discharged Restart all medications Advised on high-fiber diet Also advised to follow-up with her primary care physician in view of multiple other chronic issues She is comfortable with the plan Fall Risk Details Current Medications: Current Medications Albuterol Sulfate (Albuterol Sulfate (0.042%) 1.25 Mg/3 Ml Vial.Neb) 2.5 mg INHALE Q4H PRN PRN Reason: shortness of breath or wheezing Last Admin: 10/06/21 12:41 Dose: 2.5 mg Documented by: Albuterol Sulfate (Albuterol Sulfate 90 Mcg 8 Gm Inhaler) 2 puff INHALE Q4H PRN PRN Reason: shortness of breath or wheezing Amlodipine Besylate (Amlodipine Besylate 5 Mg Tablet) 5 mg PO DAILY [facility]; Protocol Last Admin: 10/07/21 08:35 Dose: 5 mg Documented by: Atorvastatin Calcium (Atorvastatin Calcium 80 Mg Tablet) 80 mg PO DAILY [facility] Last Admin: 10/07/21 08:35 Dose: 80 mg Documented by: Bupropion HCl (Bupropion Hcl Xl 150 Mg Tab.Er.24h) 150 mg PO DAILY [facility] Last Admin: 10/07/21 08:35 Dose: 150 mg Documented by: Dextrose (Dextrose 50 % 25 Gm/50 Ml Vial) 25 gm IVPUSH Q15M PRN; Protocol PRN Reason: per Hypoglycemia Standing Ord. Fluticasone Propionate (Fluticasone Propionate Nasal 16 Gm Custer) 1 spray NOSTRIL-B DAILY [facility] Last Admin: 10/07/21 08:44 Dose: 1 spray Documented by: Gabapentin (Gabapentin 300 Mg Capsule) 300 mg PO DAILY [facility] Last Admin: 10/07/21 08:35 Dose: 300 mg Documented by: Gabapentin (Gabapentin 300 Mg Capsule) 900 mg PO BEDTIME [facility] Last Admin: 10/06/21 22:06 Dose: 900 mg Documented by: Glucose (Glucose Gel 15 Gm Gel..Gram.) 15 gm PO Q15M PRN; Protocol PRN Reason: per Hypoglycemia Standing Ord. Heparin Sodium (Porcine) (Heparin Sodium,Porcine 5,000 Unit/Ml Vial) 5,000 unit SUBCUT Q8H [facility] Last Admin: 10/07/21 08:37 Dose: 5,000 unit Documented by: Hydroxyzine HCl (Hydroxyzine Hcl 25 Mg Tablet) 25 mg PO BID [facility] Last Admin: 10/07/21 08:35 Dose: 25 mg Documented by: Insulin Glargine (Insulin Glargine,Hum.Rec.Anlog 100 Unit/Ml 10 Ml Vial) 14 unit SUBCUT DAILY [facility] Last Admin: 10/06/21 08:27 Dose: 14 unit Documented by: Insulin Human Lispro (Insulin Lispro 100 Unit/Ml 3 Ml Vial) 0 unit SUBCUT QIDACHS [facility]; Protocol Last Admin: 10/07/21 08:36 Dose: 2 unit Documented by: Lisinopril (Lisinopril 5 Mg Tablet) 5 mg PO DAILY [facility]; Protocol Last Admin: 10/07/21 08:35 Dose: 5 mg Documented by: Montelukast Sodium (Montelukast Sodium 10 Mg Tablet) 10 mg PO BEDTIME [facility] Last Admin: 10/06/21 22:06 Dose: 10 mg Documented by: Oxycodone HCl (Oxycodone Hcl Immed Release 5 Mg Tablet) 5 mg PO Q6H PRN PRN Reason: Pain, Severe (Pain Scale 7-10) Last Admin: 10/07/21 08:35 Dose: 5 mg Documented by: Prochlorperazine Edisylate (Prochlorperazine Edisylate 10 Mg/2 Ml Vial) 5 mg IM Q6H PRN PRN Reason: Nausea and Vomiting Last Admin: 10/02/21 21:17 Dose: 5 mg Documented by: Ropinirole HCl (Ropinirole Hcl 2 Mg Tablet) 2 mg PO BID [facility] Last Admin: 10/07/21 08:35 Dose: 2 mg Documented by: Sodium Chloride (0.9 % Sodium Chloride Flush 3 Ml Syringe) 3 ml IVFLUSH [facility] Last Admin: 10/07/21 08:37 Dose: 3 ml Documented by: Sodium Chloride (0.9 % Sodium Chloride Flush 3 Ml Syringe) 3 ml IVFLUSH [facility] Last Admin: 10/07/21 08:45 Dose: Not Given Documented by: Trazodone HCl (Trazodone Hcl 100 Mg Tablet) 200 mg PO BEDTIME [facility] Last Admin: 10/06/21 22:07 Dose: 200 mg Documented by: Time Spent With Patient Time: Total time spent is greater than 50% in coordination of care (as documented) at patient's floor/unit and/or counseling patient: Quality Stroke Does the patient have a stroke diagnosis?: No VTE Prior VTE?: No VTE Risk Level:: Medical - moderate - high VTE Device Contraindication: N/A - Device Ordered VTE Drug Contraindication: N/A - Med Ordered
[2021-10-07] MEDS: Insulin Glargine,Hum.rec.anlog 100 UNIT/ML 10 ML VIAL 14 UNIT SUBCUT (11:01)
[2021-10-07 11:24] LABS: Glucose, Whole Blood 160 mg/dL (60-115)
[2021-10-07 12:00] VITALS: BP 129/63; PULSE 88; RESP 18; TEMP 36.2; O2SAT 98
--- NOTE | 2021-10-07 14:05 | MHC.CM.PN ---
PT MEDICALLY CLEARED FOR D/C HOME W/[facility] OF [facility] AND [facility] FOR HOME O2, PT'S SON AT BEDSIDE AND HE WILL TRANSPORT PT HOME. LOANER TANK HAS BEEN REQUESTED FROM [facility].
--- NOTE | 2021-10-09 16:09 | P.DS_ITS ---
DS: Providers Provider Date of Service: 10/07/21 Date of admission: 10/01/21 14:22 Primary care physician: Shelbi Perez MD Consults: 10/01/21 14:22 Consult to Hospitalist Routine Consulting Provider: Hospitalist Reason For Exam: DM, COPD, HTN DS: Diagnosis Discharge Diagnosis (1) Abdominal pain: Status: Acute (2) Urinary tract infection: Status: Acute DS: Summary Hospital Course Hospital Course: [age] year old female with multiple medical problems, admitted on 10/01/2021 of abdominal pain. She has multiple abdominal surgeries. Her CAT scan showed some fecalization of the distal small bowel without obvious transition point. She was kept NPO initially and on IV fluids. She also was diagnosed to have urinary tract infection. She did have significant complaints with urination. She continued to have a benign exam so her diet was slowly advanced from clear liquids to regular. She did not have any vomiting and tolerated this well. She continued to have issues with urination and also stated she had significant back pain among others. She was therefore kept in the hospital as she did not feel she was ready to be discharged. A hospitalist was also following her because of her other medical issues. She did to tolerate regular diet. She had good bowel movements and flatus. She never had any fever. Her white colon was normal. She eventually felt ready to be discharged on October 08, 2021. Time Spent with Patient Time attestation: Total time spent providing and/or coordinating discharge services: Discharge coordination time: Greater than 30 minutes Quality: Stroke Does the patient have a stroke diagnosis?: No Physical Exam Vital Signs: Vital Signs: Last Vital Signs Temp 97.2 F 10/07/21 12:00 Pulse 88 10/07/21 12:00 Resp 18 10/07/21 12:00 BP 129/63 10/07/21 12:00 Pulse Ox 98 10/07/21 12:00 Oxygen Flow Rate 2 10/01/21 06:44 BMI result Body Mass Index 90.8 Const: Other: Morbidly obese General: comfortable and no acute distress Resp: Other: On O2 by nasal cannula, good breath sounds bilaterally, occasionally short of breath Cardio: Rate: regular rate GI: Other: Soft, obese, no guarding rebound, nontender DS: Data Data Completed and Pending Completed studies during hospitalization [Text1]: Procedures Replacement of Left Knee Joint with Synthetic Substitute, Uncemented, Open Approach (05/28/20) Labs on day of discharge: Laboratory Results WBC 6.6 X10*3/uL (4.8-10.8) 10/04/21 10:16 RBC 3.39 X10*6/uL (4.20-5.50) L 10/04/21 10:16 Hgb 9.4 g/dl (12.0-16.0) L 10/04/21 10:16 Hct 30.7 % (37.0-47.0) L 10/04/21 10:16 MCV 90.6 fL (80.0-98.0) 10/04/21 10:16 MCH 27.7 pg (27.0-33.0) 10/04/21 10:16 MCHC 30.6 g/dl (31.0-35.0) L 10/04/21 10:16 RDW 12.6 % (11.0-16.0) 10/04/21 10:16 Plt Count 157 X10*3/uL (160-400) L 10/04/21 10:16 MPV 11.9 fL (9.4-12.3) 10/04/21 10:16 Immature Gran % (Auto) 0.2 % (0.0-0.4) 10/04/21 10:16 Neut % (Auto) 68.3 % (45-73) 10/04/21 10:16 Lymph % (Auto) 20.1 % (20-40) 10/04/21 10:16 [place] % (Auto) 6.8 % (2-11) 10/04/21 10:16 Eos % (Auto) 4.4 % (0-4) H 10/04/21 10:16 Baso % (Auto) 0.2 % (0-2) 10/04/21 10:16 Lymph # (Auto) 1.3 X10*3/uL (1.2-4.9) 10/04/21 10:16 [place] # (Auto) 0.5 X10*3/uL (0.1-1.2) 10/04/21 10:16 Eos # (Auto) 0.3 X10*3/uL (0.0-0.4) 10/04/21 10:16 Baso # (Auto) 0.0 X10*3/uL (0.0-0.2) 10/04/21 10:16 Abs Immat Gran (auto) 0.01 X10*3/uL (0.00-0.03) 10/04/21 10:16 Absolute Neuts (auto) 4.5 x10*3/uL (2.0-8.3) 10/04/21 10:16 Absolute Nucleated RBC 0.000 X10*3/uL (0.0-0.012) 10/04/21 10:16 Nucleated RBC % (auto) 0.0 /100WBC (0.0-0.2) 10/04/21 10:16 PT 11.6 SEC (9.9-13.0) 10/01/21 08:20 INR 1.0 (0.9-1.1) 10/01/21 08:20 APTT 28.1 SEC (24.1-38.0) 10/01/21 08:20 Sodium 141 mmol/L (135-145) 10/04/21 10:16 Potassium 4.1 mmol/L (3.3-5.1) 10/04/21 10:16 Chloride 107 mmol/L (96-108) 10/04/21 10:16 Carbon Dioxide 26 mmol/L (22-29) 10/04/21 10:16 Anion Gap 12 (12-20) 10/04/21 10:16 BUN 12 mg/dL (9-16) 10/04/21 10:16 Creatinine 1.27 mg/dL (0.5-1.4) 10/04/21 10:16 Estim Creat Clear Calc 71.6 10/04/21 10:16 Estimated GFR 41 10/04/21 10:16 POC Glucose 160 mg/dL (60-115) H 10/07/21 11:06 Random Glucose 137 mg/dL (60-115) H 10/04/21 10:16 Lactic Acid 2.2 mmol/L (0.5-2.0) H* 10/01/21 08:20 Lactic Acid F/U @ 2Hr 1.6 mmol/L (0.5-2.0) 10/01/21 11:34 Calcium 8.2 mg/dL (8.4-10.2) L D 10/04/21 10:16 Total Bilirubin 0.4 mg/dL (0.0-1.0) 10/01/21 07:26 Direct Bilirubin < 0.2 mg/dL (0.0-0.5) 10/01/21 07:26 AST 17 U/L (5-31) 10/01/21 07:26 ALT 18 U/L (0-31) 10/01/21 07:26 Alkaline Phosphatase 39 U/L (39-117) 10/01/21 07:26 Troponin I High Sens < 3.5 ng/L (<3.5-17.0) 10/01/21 07:26 Total Protein 6.4 g/dL (6.5-8.0) L 10/01/21 07:26 Albumin 4.0 g/dL (3.5-5.0) 10/01/21 07:26 Lipase 18 U/L (8-78) 10/01/21 07:26 Urine Color YELLOW 10/01/21 09:59 Urine Appearance HAZY 10/01/21 09:59 Urine pH 5.5 (5.0-8.0) 10/01/21 09:59 Ur Specific [place] 1.020 (1.005-1.025) 10/01/21 09:59 Urine Protein NEG MG/DL (NEG-TRACE) 10/01/21 09:59 Urine Glucose (UA) NEG MG/DL (NEG) 10/01/21 09:59 Urine Ketones NEG MG/DL (NEG) 10/01/21 09:59 Urine Blood 2+ (NEG) H 10/01/21 09:59 Urine Nitrite POS (NEG) H 10/01/21 09:59 Ur Leukocyte Esterase NEG (NEG) 10/01/21 09:59 Urine RBC 0-2 /HPF (0) 10/01/21 09:59 Urine WBC 1-4 /HPF (0-4) 10/01/21 09:59 Ur Squamous Epith Cells 2+ /LPF 10/01/21 09:59 Urine Bacteria 3+ /LPF 10/01/21 09:59 Urine Mucus 1+ /LPF 10/01/21 09:59 COVID-19 (JESSIKA) Negative (Negative) 10/01/21 07:47 COVID-19 Clin Com See Note 10/01/21 07:47 Impressions Abdomen/Pelvis CT 10/01/21 08:41 IMPRESSION: Anastomotic sigmoid colon is widely patent. However there is a likely diverticulum which was opacified is stool in the previous study is now is appears solid measuring 50 Hounsfield units. Whether this is fluid-filled R there is a recurrence of tumor is not known. Mild constipation is present without distention. There is colonic diverticulosis without diverticulitis.. No abnormal size lymph nodes seen. Mild hepatomegaly. Fleischner guidelines were followed. Discharge Plan Discharge Patient Disposition: Home, Self-Care Discharge Diagnosis: abdominal pain, UTI Referrals: Shelbi Perez MD [Primary Care Provider] - 1 Week Discharge Medications: New oxycodone-acetaminophen [Percocet] 5-325 mg tablet 1 tab PO TID PRN (Reason: back pain) Qty: 20 0RF docusate sodium [Colace] 100 mg capsule 100 mg PO BID Qty: 60 2RF Continued montelukast 10 mg tablet 10 mg PO BEDTIME 90 Days Qty: 90 0RF (DME) lancets [facility] See Rx Instructions ea topical TID Qty: 100 3RF Rx Instructions: once a day (DME) Depend Underwear For Women [facility] [place] [facility] See Rx Instructions .ROUTE .MEDSUPPLY Qty: 64 6RF Rx Instructions: 2 times a day as needed atorvastatin 80 mg tablet 80 mg PO DAILY 90 Days Qty: 90 0RF (DME) pen needle, diabetic [BD Ultra-Fine Mini Pen Needle] 31 gauge x 3/16 needle See Rx Instructions .Route Qty: 100 2RF Rx Instructions: Use to administer insulin twice daily (DME) FreeStyle Lite Strips Strip See Rx Instructions .Route 0RF Rx Instructions: Use to check blood sugar twice daily and when having symptoms of hypo/hyperglycemia (DME) pen needle, diabetic 31 gauge x 3/16 needle See Rx Instructions ea subcut TID Qty: 100 1RF Rx Instructions: As directed amlodipine [Norvasc] 5 mg tablet 5 mg PO DAILY 30 Days Qty: 90 0RF fluticasone propionate 50 mcg/actuation spray,suspension 1 spray intranasal DAILY 30 Days Qty: 16 3RF ropinirole 2 mg tablet 2 mg PO BID 90 Days Qty: 180 1RF (DME) AeroEclipse II Nebulizer Misc See Rx Instructions .ROUTE .MEDSUPPLY Qty: 1 0RF Rx Instructions: As directed hydroxyzine pamoate 25 mg capsule 1 cap PO BID 0RF gabapentin 300 mg capsule 300 mg PO DAILY 0RF Levemir FlexTouch U-100 Insuln 100 unit/mL (3 mL) insulin pen 20 unit subcut DAILY 0RF glipizide 2.5 mg tablet extended release 24 hr 2.5 mg PO DAILY Qty: 30 0RF lisinopril 5 mg tablet 1 tab PO DAILY 0RF trazodone 100 mg tablet 200 mg PO BEDTIME 0RF aspirin 81 mg Tablet,Chewable 81 mg PO DAILY 0RF albuterol sulfate 1.25 mg/3 mL solution for nebulization 2.5 mg inhalation Q4-6H PRN (Reason: shortness of breath or wheezing) 30 Days Qty: 90 2RF gabapentin 300 mg capsule 900 mg PO BEDTIME 0RF Rx Instructions: pt takes 1 300mg in am and pm and 3 and bedtime bupropion HCl 150 mg tablet extended release 24 hr 150 mg PO DAILY 0RF (DME) oxygen-air delivery systems Device See Rx Instructions .ROUTE .MEDSUPPLY Qty: 1 0RF Rx Instructions: As directed albuterol sulfate [ProAir HFA] 90 mcg/actuation HFA aerosol inhaler 2 puff inhalation Q4-6H PRN (Reason: shortness of breath or wheezing) 30 Days Qty: 8.5 2RF Discharge Orders: Discharge Order (Routine); Ordered 10/07/21 Ordered By: Randi Marquez Diet: advance to usual diet Activity on Discharge: As tolerated Stand Alone Forms: Patient Portal Discharge page Activity Restrictions/Additional Instructions: diet as tolerated Care Plan Goals: control UTI Monitor respiratory issues Health Concerns: COPD DM control Plan of Treatment: restart all meds close ffup with PCP Assessment: Much improved, good GI function Discharge Date/Time: 10/07/21 14:46
== END 2021-10-07 14:46 | disposition home or self-care (01) | DRG 690 ==
LOC: HO.ED 13:36 → HO.EDOVER 14:33 → HO.IMC 22:50 → HO.S3 10-05 16:52
PROVIDERS: Physician Assistant Medical; Admitting Provider Surgery; Emergency Provider Emergency Medicine Emergency Medical Services; PCP Internal Medicine; Visit Provider Nurse Practitioner Acute Care
DX: N39.0 Urinary tract infection, site not specified (principal); Z68.45 Body mass index [BMI] 70 or greater, adult; J96.10 Chronic respiratory failure, unspecified whether with hypoxia or hypercapnia; B96.1 Klebsiella pneumoniae [K. pneumoniae] as the cause of diseases classified elsewhere; I12.9 Hypertensive chronic kidney disease with stage 1 through stage 4 chronic kidney disease, or unspecified chronic kidney disease; N18.30 Chronic kidney disease, stage 3 unspecified; E66.01 Morbid (severe) obesity due to excess calories; E11.22 Type 2 diabetes mellitus with diabetic chronic kidney disease; E11.40 Type 2 diabetes mellitus with diabetic neuropathy, unspecified; E78.5 Hyperlipidemia, unspecified; G25.81 Restless legs syndrome; Z20.822 Contact with and (suspected) exposure to COVID-19; K21.9 Gastro-esophageal reflux disease without esophagitis; Z79.4 Long term (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 insulin; Z79.51 Long term (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 inhaled steroids; Z79.82 Long term (current) use of aspirin; Z79.891 Long term (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 opiate analgesic; Z79.899 Other long term (current) drug therapy
CPT/HCPCS: 36415; 74176; 80048; 80076; 81001; 82947; 83605; 83690; 84484; 85025; 85610; 85730; 87086; 87088; 87186; 87635; 93005; 94640; 96361; 96374; 96375; 96376; 99285; J0696; J1170; J2270; J2405

== ENCOUNTER → 2021-10-14 14:16 | Outpatient (BNVA) | payer MEDICARE, MEDICAID, SELFPAY | PROVIDERS: PCP Internal Medicine; Visit Provider Internal Medicine | DX: G47.33 Obstructive sleep apnea (adult) (pediatric) (principal); R06.02 Shortness of breath; J30.9 Allergic rhinitis, unspecified; J98.4 Other disorders of lung; E66.01 Morbid (severe) obesity due to excess calories; Z68.41 Body mass index [BMI] 40.0-44.9, adult | CPT/HCPCS: 99212 ==

== ENCOUNTER 2021-10-30 13:02 | Outpatient (REF) | payer MEDICARE, MEDICAID, SELFPAY ==
[2021-10-30 13:49] LABS: MANUAL DIFF FLAG NO
[2021-10-30 13:54] LABS: Basophils Percent Auto 0.4 % (0-2); Eosinophils Absolute Auto 0.3 X10*3/uL (0.0-0.4); Hematocrit 37.1 % (37.0-47.0); Hemoglobin 11.6 g/dl (12.0-16.0); Imm Gran Abs Auto 0.04 X10*3/uL (0.00-0.03); Imm Gran Pct Auto 0.4 % (0.0-0.4); Lymphocytes Absolute Auto 2.9 X10*3/uL (1.2-4.9); Lymphocytes Percent Auto 25.8 % (20-40); Mean Corpuscular HGB Conc 31.3 g/dl (31.0-35.0); Mean Corpuscular Hemoglobin 27.2 pg (27.0-33.0); Mean Corpuscular Volume 87.1 fL (80.0-98.0); Mean Platelet Volume 12.4 fL (9.4-12.3); Monocytes Absolute Auto 0.6 X10*3/uL (0.1-1.2); Monocytes Percent Auto 5.1 % (2-11); Neutrophils Absolute Auto 7.3 x10*3/uL (2.0-8.3); Neutrophils Percent Auto 65.3 % (45-73); Platelet Count 241 X10*3/uL (160-400); Red Blood Count 4.26 X10*6/uL (4.20-5.50); Red Cell Distribution Width 12.8 % (11.0-16.0); White Blood Count 11.1 X10*3/uL (4.8-10.8)
[2021-10-30 14:15] LABS: Alanine Aminotransferase 16 U/L (0-31); Albumin Level 3.9 g/dL (3.5-5.0); Alkaline Phosphatase 41 U/L (39-117); Anion Gap 16 (12-20); Aspartate Amino Transferase 17 U/L (5-31); Bilirubin Total 0.4 mg/dL (0.0-1.0); Blood Urea Nitrogen 21 mg/dL (9-16); Calcium 9.6 mg/dL (8.4-10.2); Carbon Dioxide 27 mmol/L (22-29); Chloride 100 mmol/L (96-108); Estimated Glomerular Filt Rate 29; Glucose Random 132 mg/dL (60-115); Potassium 4.5 mmol/L (3.3-5.1); Sodium 138 mmol/L (135-145); Total Protein 6.6 g/dL (6.5-8.0)
[2021-10-30 14:19] LABS: Estimated Average Glucose 166 mg/dL; Hemoglobin A1c % 7.4 %
[2021-10-30 14:36] LABS: Ferritin 43 ng/mL (10-250); TSH reflex Free T4 1.12 uIU/mL (0.32-4.0)
[2021-10-30 14:49] LABS: Folate 7.4 ng/mL (> or = 4.0); Vitamin B12 285 pg/mL (200-900)
== END 2021-10-30 13:03 | disposition home or self-care (01) ==
LOC: HO.HMGCLDS 13:02
PROVIDERS: PCP Internal Medicine; Visit Provider Internal Medicine
DX: E11.40 Type 2 diabetes mellitus with diabetic neuropathy, unspecified (principal); D64.9 Anemia, unspecified; R79.89 Other specified abnormal findings of blood chemistry; E78.9 Disorder of lipoprotein metabolism, unspecified; R32 Unspecified urinary incontinence; Z79.4 Long term (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 insulin
CPT/HCPCS: 36415; 80053; 82607; 82728; 82746; 83036; 84443; 85025

== ENCOUNTER 2021-11-22 09:49 | Emergency (ER) | payer MEDICARE, MEDICAID, SELFPAY ==
--- NOTE | ~2021-11-22 | CT_ITS ---
EXAMINATION: CT ABDOMEN AND PELVIS WITHOUT CONTRAST CLINICAL INFORMATION: Abdominal pain and constipation. COMPARISON: Previous CT of the abdomen and pelvis September 2021. TECHNIQUE: Multidetector volumetric imaging was performed from the superior aspect of the liver through the pubic symphysis. Sagittal and coronal reformatted images were obtained on the technologist's workstation. This CT examination was performed using dose optimization techniques as appropriate, variously including the following: *Automated exposure control *Adjustment of mA and/or kV according to patient size (this includes techniques or standardized protocols for targeted exams where dose is matched to indication/reason for exam; i.e. extremities or head) *Use of iterative reconstruction technique DLP: 997 mGy-cm FINDINGS: LUNG BASES: The visualized lung bases are unremarkable. LIVER, GALLBLADDER, AND BILIARY TREE: The liver is normal in size, shape, and attenuation. No focal hepatic lesion or biliary ductal dilatation is present. The gallbladder is not seen and may have been removed. PANCREAS: Unremarkable. SPLEEN: Unremarkable. ADRENAL GLANDS: Unremarkable. KIDNEYS AND URETERS: There is a 4 mm stone in the lower pole of the left kidney. BLADDER: Unremarkable. GASTROINTESTINAL TRACT: There are postsurgical changes to the distal sigmoid colon or upper rectum. There is increased soft tissue along the left side of the anastomosis measuring 1.5 cm axial image 70 series 3 that is unchanged from recent exam September 2021. There is stool seen in this region on prior exam January 2021 and this may represent postsurgical change from the anastomosis for outpouching or diverticulum containing stool. There is diverticulosis of the colon. No evidence of diverticulitis is seen. There is stool throughout the colon questionable for mild constipation. There is no evidence of obstruction. The appendix is not seen. ABDOMINAL WALL: No significant hernia is appreciated. LYMPH NODES: Normal. VASCULAR: Unremarkable. PELVIC VISCERA: Unremarkable. OSSEOUS STRUCTURES: Stable postsurgical changes to the distal sigmoid colon. There is degenerative disc disease at L5-S1 and multilevel spondylosis. CT/CT abdomen pelvis wo con IMPRESSION: Diverticulosis. No evidence of diverticulitis. Stool throughout the colon questionable for constipation. No evidence of obstruction. Nonobstructing left renal stone. Fleischner guidelines were followed.
[2021-11-22 09:59] VITALS: BP 161/69; PULSE 100; RESP 19; TEMP 36.6; O2SAT 98; BMI 43.0
--- NOTE | 2021-11-22 10:39 | ED_ITS ---
HPI - Abdominal Pain General Chief Complaint: Abdominal Pain Stated Complaint: abd pain/nausea Time Seen by Provider: 11/22/21 10:37 Source: patient and old records reviewed Mode of arrival: EMS Limitations: no limitations History of Present Illness MD elicited complaint: abdominal pain Pertinent past history: other (UTI, SBO, multiple abdominal surgeries) Onset (ago): day(s) (3) Pain Consistency: constant Location: LUQ Severity: moderate Quality: stabbing Radiation: other (periumbilical) Migration to: no migration Exacerbating factors: movement Relieving factors: nothing Context: history of similar episodes Associated symptoms: nausea and constipation (last BM two days ago did pass flatus this AM) Related Data Home Medications Medication Instructions Recorded Confirmed bupropion HCl 150 mg 24 hr tablet, 150 mg PO DAILY 04/25/20 10/30/21 extended release oxygen-air delivery systems #1 04/25/20 10/30/21 gabapentin 300 mg capsule 900 mg PO BEDTIME cap 05/13/21 10/30/21 gabapentin 300 mg capsule 300 mg PO DAILY 06/29/21 10/30/21 hydroxyzine pamoate 25 mg capsule 1 cap PO BID 06/29/21 10/30/21 blood sugar diagnostic (FreeStyle 08/09/21 08/23/21 Lite Strips) insulin detemir U-100 100 unit/mL 20 unit SUBCUT DAILY 08/12/21 10/30/21 (3 mL) subcutaneous pen (Levemir FlexTouch U-100 Insulin) aspirin 81 mg chewable tablet 81 mg PO DAILY 10/01/21 10/30/21 lisinopril 5 mg tablet 1 tab PO DAILY 10/01/21 10/30/21 trazodone 100 mg tablet 200 mg PO BEDTIME 10/01/21 10/30/21 Previous Rx's Medication Instructions Recorded nebulizers (AeroEclipse II #1 ea 02/05/21 Nebulizer) albuterol sulfate 90 mcg/actuation 2 puff INHALATION Q4-6H PRN 30 05/13/21 aerosol inhaler (ProAir HFA) Days #8.5 g lancets 28 gauge #100 ea 06/24/21 montelukast 10 mg tablet 10 mg PO BEDTIME 90 Days #90 tab 06/24/21 diaper,brief,adult,disposable #64 ea 06/26/21 (Depend Underwear For Women S-M) atorvastatin 80 mg tablet 80 mg PO DAILY 90 Days #90 tab 08/07/21 pen needle, diabetic 31 gauge x #100 ea 08/09/2109/25 (BD Ultra-Fine Mini Pen Needle) pen needle, diabetic 31 gauge x #100 ea 08/12/2109/25 glipizide 2.5 mg tablet, extended 2.5 mg PO DAILY #30 tab 08/13/21 release 24 hr amlodipine 5 mg tablet (Norvasc) 5 mg PO DAILY 30 Days #90 tab 08/26/21 fluticasone propionate 50 1 spray INTRANASAL DAILY 30 Days 09/09/21 mcg/actuation nasal #16 g spray,suspension ropinirole 2 mg tablet 2 mg PO BID 90 Days #180 tab 09/16/21 docusate sodium 100 mg capsule 100 mg PO BID #60 cap 10/07/21 (Colace) oxycodone-acetaminophen 5 mg-325 1 tab PO TID PRN #20 tab 10/07/21 mg tablet (Percocet) furosemide 20 mg tablet (Lasix) 20 mg PO Q OTHER DAY 28 Days #14 10/14/21 tab acyclovir 5 % topical ointment 1 appl TOPICAL 6XD 7 Days #5 g 11/18/21 (Zovirax) albuterol sulfate 1.25 mg/3 mL 2.5 mg (6 mL) INHALATION Q4-6H PRN 11/20/21 solution for nebulization 30 Days #90 ml MDD copd hydrocortisone 2.5 % topical cream 1 appl TOPICAL BID PRN #20 g 11/20/21 Allergies Allergy/AdvReac Type Severity Reaction Status Date / Time adhesive tape [ADHESIVE TAPE] Allergy Intermediate RASH Verified 11/18/21 14:36 trimethobenzamide Allergy Mild NAUSEA Verified 11/18/21 14:36 [From TIGAN] environmental Allergy Intermediate Nasal Uncoded 11/18/21 14:36 congestion Review of Systems Review of Systems Constitutional : No Weight loss, No Fever, No Chills ENT/Mouth : No sore throat, No Rhinorrhea Eyes: No Swelling, No Redness Cardiovascular : No Chest Pain, No SOB, NoEdema Respiratory : No Cough, No Sputum, No Wheezing Gastrointestinal : Positive Nausea, no Vomiting, no Diarrhea, positive abdominal Pain, No Hematochezia, No Melena, pos constipation Genitourinary : No Dysuria, No Urinary Frequency, No Hematuria, No Urgency Musculoskeletal : No joint pain, No Myalgias, No Joint Swelling Skin : No Skin Lesions, No rash Neuro : No Weakness, No Numbness, No Dizziness, No Headache Psych : No Anxiety/Panic, No Depression Heme/Lymph: No Bruising, No Lymphadenopathy Endocrine : No Polyuria, No Polydipsia All other systems reviewed and are negative. [facility] Past Medical History Attestation statement: The following information was validated with the patient. Source: old records reviewed Medical History Allergic rhinitis Anemia Arthritis CKD (chronic kidney disease) Constipation due to opioid therapy COPD exacerbation CPAP (continuous positive airway pressure) dependence Diabetes Elevated cholesterol GERD (gastroesophageal reflux disease) History of adrenal adenoma History of diverticulitis History of restless legs syndrome Hx SBO Hyperlipidemia Hypoxemia Morbid obesity Obesity (BMI 30-39.9) ALDO (obstructive sleep apnea) Osteoarthritis of left knee Osteochondroma of left femur Urinary tract infection Surgical History H/O colonoscopy H/O excision of mass H/O exploratory laparotomy History of appendectomy History of arthroscopy of left knee History of cholecystectomy History of hysterectomy History of oophorectomy History of partial colectomy History of surgery Hx of cataract extraction Family History Family History Father HTN (hypertension) Diabetes mellitus Mother HTN (hypertension) Liver cancer Social History Social History 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: Family 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 Other:: ex Housing: Apartment Are you a primary care support representative to a significant other at home: No Do you presently have visiting nurse or other home services: Yes ([facility]) Alcohol intake: unknown Patient Tobacco Use Status: Never used Tobacco Second Hand Smoke Exposure: Yes Advance Directives: Yes Advance Directives on File: Yes Advance Directives Date on File: 07/08/21 service: No Current occupational status: retired Cognitive needs: No Hearing needs: No Vision needs: No Physical Exam ED Vital Signs: Vital Signs - 24 hr 11/22/21 09:59 11/22/21 11:54 11/22/21 13:00 Temperature 98 F Pulse Rate 100 83 Respiratory Rate 19 20 16 Blood Pressure 161/69 H 108/43 L Pulse Oximetry 98 94 BMI result Body Mass Index 43.0 Appearance: Alert. Oriented X3. No acute distress. Eyes: Pupils equal, round and reactive to light. ENT: Pharynx normal. Neck: Normal inspection. Neck supple. CVS: Normal heart rate and rhythm. Pulses normal. Respiratory: No respiratory distress. Breath sounds normal. Abdomen: Soft and ttp across the periumbilical area no mass felt mild distention no rebound Skin: Skin warm and dry. Normal skin color. Extremities: No lower extremity edema. No calf ttp Neuro: Oriented X 3. No motor deficit. No sensory deficit. Course Course Course Narrative: Cr at baseline will place on bowel regimen and have PCP repeat Cr on Thursday MDM - Abdominal Pain MDM Narrative Medical decision making narrative: 71 yo female with hx of anemia, UTI, obesity, IDDM, CKD, ALDO, multiple abdominal surgeries here with c/o 3 days of sharp intermittent abdominal pain no BM x 2 days with nausea did pass flatus this AM. At this time will obtain basic labs, IV pain medications, CT scan for SBO. Dispo per results and findings. Lab Data Result diagrams: 11/22/21 11:42 11/22/21 11:42 Labs: Lab Results 11/22/21 11/22/21 11/22/21 Range/Units 11:42 11:42 11:59 WBC 10.3 (4.8-10.8) X10*3/uL RBC 4.15 L (4.20-5.50) X10*6/uL Hgb 11.2 L (12.0-16.0) g/dl Hct 35.2 L (37.0-47.0) % MCV 84.8 (80.0-98.0) fL MCH 27.0 (27.0-33.0) pg MCHC 31.8 (31.0-35.0) g/dl RDW 13.2 (11.0-16.0) % Plt Count 226 (160-400) X10*3/uL MPV 12.2 (9.4-12.3) fL Immature Gran % (Auto) 0.4 (0.0-0.4) % Neut % (Auto) 60.8 (45-73) % Lymph % (Auto) 29.6 (20-40) % [place] % (Auto) 6.5 (2-11) % Eos % (Auto) 2.4 (0-4) % Baso % (Auto) 0.3 (0-2) % Lymph # (Auto) 3.1 (1.2-4.9) X10*3/uL [place]ink[place] # (Auto) 0.7 (0.1-1.2) X10*3/uL Eos # (Auto) 0.3 (0.0-0.4) X10*3/uL Baso # (Auto) 0.0 (0.0-0.2) X10*3/uL Abs Immat Gran (auto) 0.04 H (0.00-0.03) X10*3/uL Absolute Neuts (auto) 6.3 (2.0-8.3) x10*3/uL Absolute Nucleated RBC 0.000 (0.0-0.012) X10*3/uL Nucleated RBC % (auto) 0.0 (0.0-0.2) /100WBC PT (9.9-13.0) SEC INR (0.9-1.1) Sodium 139 (135-145) mmol/L Potassium 4.8 (3.3-5.1) mmol/L Chloride 101 (96-108) mmol/L Carbon Dioxide 26 (22-29) mmol/L Anion Gap 17 (12-20) BUN 25 H (9-16) mg/dL Creatinine 1.83 H (0.5-1.4) mg/dL Estim Creat Clear Calc 29.9 Estimated GFR 27 Random Glucose 138 H (60-115) mg/dL Calcium 9.5 (8.4-10.2) mg/dL Magnesium 1.7 (1.6-2.6) mg/dL Total Bilirubin 0.2 (0.0-1.0) mg/dL Direct Bilirubin < 0.2 (0.0-0.5) mg/dL AST 22 (5-31) U/L ALT 18 (0-31) U/L Alkaline Phosphatase 41 (39-117) U/L Total Protein 6.7 (6.5-8.0) g/dL Albumin 3.9 (3.5-5.0) g/dL Lipase 17 (8-78) U/L Urine Color Urine Appearance Urine pH (5.0-8.0) Ur Specific [place] (1.005-1.025) Urine Protein (NEG-TRACE) MG/DL Urine Glucose (UA) (NEG) MG/DL Urine Ketones (NEG) MG/DL Urine Blood (NEG) Urine Nitrite (NEG) Ur Leukocyte Esterase (NEG) Urine RBC (0) /HPF Urine WBC (0-4) /HPF Ur Squamous Epith Cells /LPF Urine Bacteria /LPF Urine Yeast /HPF COVID-19 (JESSIKA) Negative (Negative) COVID-19 Clin Com See Note 11/22/21 11/22/21 Range/Units 11:59 12:36 WBC (4.8-10.8) X10*3/uL RBC (4.20-5.50) X10*6/uL Hgb (12.0-16.0) g/dl Hct (37.0-47.0) % MCV (80.0-98.0) fL MCH (27.0-33.0) pg MCHC (31.0-35.0) g/dl RDW (11.0-16.0) % Plt Count (160-400) X10*3/uL MPV (9.4-12.3) fL Immature Gran % (Auto) (0.0-0.4) % Neut % (Auto) (45-73) % Lymph % (Auto) (20-40) % Winkler % (Auto) (2-11) % Eos % (Auto) (0-4) % Baso % (Auto) (0-2) % Lymph # (Auto) (1.2-4.9) X10*3/uL [place]ink[place] # (Auto) (0.1-1.2) X10*3/uL Eos # (Auto) (0.0-0.4) X10*3/uL Baso # (Auto) (0.0-0.2) X10*3/uL Abs Immat Gran (auto) (0.00-0.03) X10*3/uL Absolute Neuts (auto) (2.0-8.3) x10*3/uL Absolute Nucleated RBC (0.0-0.012) X10*3/uL Nucleated RBC % (auto) (0.0-0.2) /100WBC PT 12.3 (9.9-13.0) SEC INR 1.1 (0.9-1.1) Sodium (135-145) mmol/L Potassium (3.3-5.1) mmol/L Chloride (96-108) mmol/L Carbon Dioxide (22-29) mmol/L Anion Gap (12-20) BUN (9-16) mg/dL Creatinine (0.5-1.4) mg/dL Estim Creat Clear Calc Estimated GFR Random Glucose (60-115) mg/dL Calcium (8.4-10.2) mg/dL Magnesium (1.6-2.6) mg/dL Total Bilirubin (0.0-1.0) mg/dL Direct Bilirubin (0.0-0.5) mg/dL AST (5-31) U/L ALT (0-31) U/L Alkaline Phosphatase (39-117) U/L Total Protein (6.5-8.0) g/dL Albumin (3.5-5.0) g/dL Lipase (8-78) U/L Urine Color YELLOW Urine Appearance CLEAR Urine pH 6.0 (5.0-8.0) Ur Specific [place] 1.015 (1.005-1.025) Urine Protein NEG (NEG-TRACE) MG/DL Urine Glucose (UA) NEG (NEG) MG/DL Urine Ketones NEG (NEG) MG/DL Urine Blood 1+ H (NEG) Urine Nitrite NEG (NEG) Ur Leukocyte Esterase NEG (NEG) Urine RBC 0-2 (0) /HPF Urine WBC 0-2 (0-4) /HPF Ur Squamous Epith Cells 3+ /LPF Urine Bacteria 1+ /LPF Urine Yeast TRACE /HPF COVID-19 (JESSIKA) (Negative) COVID-19 Clin Com ECG Data Attestation: I personally reviewed and interpreted this ECG as follows: ECG interpretation date: 11/22/21 ECG interpretation time: 11:34 Interpretation: Rate: 84 Rhythm: NSR [place]: normal Normal P waves. Normal MELISSA. Normal QRS complex. ST T wave : non specific no EDWIN qTC: normal prior studies: no acute ischemia The study has been interpreted contemporaneously by me. Discharge Plan Discharge Clinical Impression: Constipation Qualifiers: Constipation type: unspecified constipation type Qualified Code(s): K59.00 - Constipation, unspecified Abdominal pain Qualifiers: Abdominal location: periumbilical Qualified Code(s): R10.33 - Periumbilical pain CKD (chronic kidney disease) Qualifiers: Chronic kidney disease stage: unspecified stage Qualified Code(s): N18.9 - Chronic kidney disease, unspecified Patient Disposition: Home, Self-Care Instructions: Abdominal Pain (ED), Chronic Kidney Disease (ED), Constipation (ED) Additional Instructions: return to ED for any worsening symptoms or concerns repeat Cr with PCP no later than Thursday take docusate, senna, miralax and probiotic for stool regimen Prescriptions: No Action montelukast 10 mg tablet 10 mg PO BEDTIME 90 Days Qty: 90 0RF (DME) lancets 28 gauge misc See Rx Instructions ea topical TID Qty: 100 3RF Rx Instructions: once a day (DME) Depend Underwear For Women [facility] See Rx Instructions .ROUTE .MEDSUPPLY Qty: 64 6RF Rx Instructions: 2 times a day as needed atorvastatin 80 mg tablet 80 mg PO DAILY 90 Days Qty: 90 0RF (DME) pen needle, diabetic [BD Ultra-Fine Mini Pen Needle] 31 gauge x 3/16 needle See Rx Instructions .Route Qty: 100 2RF Rx Instructions: Use to administer insulin twice daily (DME) FreeStyle Lite Strips Strip See Rx Instructions .Route 0RF Rx Instructions: Use to check blood sugar twice daily and when having symptoms of hypo/hyperglycemia (DME) pen needle, diabetic 31 gauge x 3/16 needle See Rx Instructions ea subcut TID Qty: 100 1RF Rx Instructions: As directed amlodipine [Norvasc] 5 mg tablet 5 mg PO DAILY 30 Days Qty: 90 0RF fluticasone propionate 50 mcg/actuation spray,suspension 1 spray intranasal DAILY 30 Days Qty: 16 3RF ropinirole 2 mg tablet 2 mg PO BID 90 Days Qty: 180 1RF hydrocortisone 2.5 % cream 1 appl topical BID PRN (Reason: skin irritation) Qty: 20 0RF albuterol sulfate 1.25 mg/3 mL solution for nebulization 2.5 mg inhalation Q4-6H MDD copd PRN (Reason: copd) 30 Days Qty: 90 2RF (DME) AeroEclipse II Nebulizer Misc See Rx Instructions .ROUTE .MEDSUPPLY Qty: 1 0RF Rx Instructions: As directed hydroxyzine pamoate 25 mg capsule 1 cap PO BID 0RF gabapentin 300 mg capsule 300 mg PO DAILY 0RF Levemir FlexTouch U-100 Insuln 100 unit/mL (3 mL) insulin pen 20 unit subcut DAILY 0RF glipizide 2.5 mg tablet extended release 24 hr 2.5 mg PO DAILY Qty: 30 0RF lisinopril 5 mg tablet 1 tab PO DAILY 0RF trazodone 100 mg tablet 200 mg PO BEDTIME 0RF aspirin 81 mg Tablet,Chewable 81 mg PO DAILY 0RF oxycodone-acetaminophen [Percocet] 5-325 mg tablet 1 tab PO TID PRN (Reason: back pain) Qty: 20 0RF docusate sodium [Colace] 100 mg capsule 100 mg PO BID Qty: 60 2RF gabapentin 300 mg capsule 900 mg PO BEDTIME 0RF Rx Instructions: pt takes 1 300mg in am and pm and 3 and bedtime acyclovir [Zovirax] 5 % ointment 1 appl topical 6XD 7 Days Qty: 5 0RF bupropion HCl 150 mg tablet extended release 24 hr 150 mg PO DAILY 0RF (DME) oxygen-air delivery systems Device See Rx Instructions .ROUTE .MEDSUPPLY Qty: 1 0RF Rx Instructions: As directed albuterol sulfate [ProAir HFA] 90 mcg/actuation HFA aerosol inhaler 2 puff inhalation Q4-6H PRN (Reason: shortness of breath or wheezing) 30 Days Qty: 8.5 2RF furosemide [Lasix] 20 mg tablet 20 mg PO Q OTHER DAY 28 Days Qty: 14 2RF Referrals: Shelbi Perez MD [Primary Care Provider] - (no later than Thursday repeat kidney function can happen tomorrow too)
--- NOTE | 2021-11-22 10:48 | ECG_ITS ---
Test Reason : ABDOMINAL PAIN Blood Pressure : / mmHG Vent. Rate : 084 BPM Atrial Rate : 084 BPM P-R Int : 166 ms QRS Dur : 080 ms QT Int : 382 ms P-R-T Axes : 038 022 028 degrees QTc Int : 451 ms Normal sinus rhythm Nonspecific ST abnormality Abnormal ECG When compared with ECG of 01-OCT-2021 07:51, No significant change was found Referred By: Arleen Banegas Electronically Signed By:RAMSEY ZARATE MD
[2021-11-22 11:49] LABS: MANUAL DIFF FLAG NO
[2021-11-22 11:52] LABS: Basophils Percent Auto 0.3 % (0-2); Eosinophils Absolute Auto 0.3 X10*3/uL (0.0-0.4); Eosinophils Percent Auto 2.4 % (0-4); Hematocrit 35.2 % (37.0-47.0); Hemoglobin 11.2 g/dl (12.0-16.0); Imm Gran Abs Auto 0.04 X10*3/uL (0.00-0.03); Imm Gran Pct Auto 0.4 % (0.0-0.4); Lymphocytes Absolute Auto 3.1 X10*3/uL (1.2-4.9); Lymphocytes Percent Auto 29.6 % (20-40); Mean Corpuscular HGB Conc 31.8 g/dl (31.0-35.0); Mean Corpuscular Volume 84.8 fL (80.0-98.0); Mean Platelet Volume 12.2 fL (9.4-12.3); Monocytes Absolute Auto 0.7 X10*3/uL (0.1-1.2); Monocytes Percent Auto 6.5 % (2-11); Neutrophils Absolute Auto 6.3 x10*3/uL (2.0-8.3); Neutrophils Percent Auto 60.8 % (45-73); Platelet Count 226 X10*3/uL (160-400); Red Blood Count 4.15 X10*6/uL (4.20-5.50); Red Cell Distribution Width 13.2 % (11.0-16.0); White Blood Count 10.3 X10*3/uL (4.8-10.8)
[2021-11-22 11:54] VITALS: RESP 20
[2021-11-22] MEDS: HYDROmorphone HCl 0.5 MG/0.5 ML SYRINGE IVPUSH (11:54)
[2021-11-22] MEDS: ondansetron HCL 4 MG/2 ML VIAL IVPUSH (11:54)
[2021-11-22 12:07] LABS: Alanine Aminotransferase 18 U/L (0-31); Albumin Level 3.9 g/dL (3.5-5.0); Alkaline Phosphatase 41 U/L (39-117); Anion Gap 17 (12-20); Aspartate Amino Transferase 22 U/L (5-31); Bilirubin Direct < 0.2 mg/dL (0.0-0.5); Bilirubin Total 0.2 mg/dL (0.0-1.0); Blood Urea Nitrogen 25 mg/dL (9-16); Calcium 9.5 mg/dL (8.4-10.2); Carbon Dioxide 26 mmol/L (22-29); Chloride 101 mmol/L (96-108); Creatinine Clr Calc Pharmacy 29.9; Estimated Glomerular Filt Rate 27; Glucose Random 138 mg/dL (60-115); Lipase 17 U/L (8-78); Magnesium 1.7 mg/dL (1.6-2.6); Potassium 4.8 mmol/L (3.3-5.1); Sodium 139 mmol/L (135-145); Total Protein 6.7 g/dL (6.5-8.0)
[2021-11-22 12:13] LABS: Appearance Urine CLEAR; Color Urine YELLOW; Glucose Urine UA NEG (NEG); Leukocyte Esterase Urine NEG (NEG); Nitrite Urine NEG (NEG); Specific Gravity - Urine 1.015 (1.005-1.025); UACC Culture Trigger NO; Urine Blood 1+ (NEG); Urine Ketones NEG (NEG); Urine Protein NEG (NEG-TRACE)
[2021-11-22 12:22] LABS: Squamous Epithelial Cell Urine 3+ /LPF
[2021-11-22 12:23] LABS: Bacteria Urine 1+ /LPF; WBC Urine 0-2 /HPF (0-4)
[2021-11-22 12:24] LABS: COVID-19 Test Negative (Negative); RBC Urine 0-2 /HPF (0)
[2021-11-22 12:50] LABS: INTERNATIONAL NORM RATIO 1.1 (0.9-1.1); Prothrombin Time 12.3 SEC (9.9-13.0)
[2021-11-22 13:00] VITALS: BP 108/43; PULSE 83; RESP 16; O2SAT 94
== END 2021-11-22 14:29 | disposition home or self-care (01) ==
PROVIDERS: Emergency Provider Emergency Medicine; PCP Internal Medicine
DX: R10.33 Periumbilical pain (principal); K59.00 Constipation, unspecified; E11.22 Type 2 diabetes mellitus with diabetic chronic kidney disease; N18.9 Chronic kidney disease, unspecified; J44.9 Chronic obstructive pulmonary disease, unspecified; G47.33 Obstructive sleep apnea (adult) (pediatric); Z79.4 Long term (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 insulin; Z99.89 Dependence on other enabling machines and devices
CPT/HCPCS: 36415; 74176; 80048; 80076; 81001; 83690; 83735; 85025; 85610; 87635; 93005; 99283; J1170; J2405

== ENCOUNTER 2021-11-23 19:02 | Inpatient (IN) | payer MEDICARE, MEDICAID, SELFPAY ==
--- NOTE | ~2021-11-23 | CT_ITS ---
EXAMINATION: CT ABDOMEN AND PELVIS WITHOUT CONTRAST CLINICAL INFORMATION: Epigastric pain. Elevated white blood cell count COMPARISON: 11/22/2021 TECHNIQUE: Multidetector volumetric imaging was performed from the superior aspect of the liver through the pubic symphysis. Sagittal and coronal reformatted images were obtained on the technologist's workstation. This CT examination was performed using dose optimization techniques as appropriate, variously including the following: *Automated exposure control *Adjustment of mA and/or kV according to patient size (this includes techniques or standardized protocols for targeted exams where dose is matched to indication/reason for exam; i.e. extremities or head) *Use of iterative reconstruction technique DLP: 932 mGy-cm FINDINGS: LUNG BASES: The visualized lung bases are unremarkable. LIVER, GALLBLADDER, AND BILIARY TREE: The liver is normal in size, shape, and attenuation. No focal hepatic lesion or biliary ductal dilatation is present. Gallbladder absent. PANCREAS: Unremarkable. SPLEEN: Unremarkable. ADRENAL GLANDS: Unremarkable. KIDNEYS AND URETERS: The kidneys are normal in size, shape, and attenuation. No hydronephrosis or hydroureter. Nonobstructive 4 mm calculus, lower pole left kidney. No perinephric stranding. BLADDER: Unremarkable. GASTROINTESTINAL TRACT: There are multiple loops of small bowel within the midabdomen which straight wall thickening, perienteric fat stranding and haziness and trace mesenteric fluid, without significant dilatation to suggest obstruction. Scattered colonic diverticula without evidence of diverticulitis. Rectosigmoid anastomosis intact. Appendix not seen. Stomach unremarkable. ABDOMINAL WALL: No significant hernia is appreciated. LYMPH NODES: Normal. VASCULAR: Aorta mildly atherosclerotic but normal caliber. PELVIC VISCERA: Hysterectomy. No adnexal abnormalities. OSSEOUS STRUCTURES: No acute or suspicious osseous abnormalities. CT/CT abdomen pelvis wo con IMPRESSION: Interval development of multiple inflamed loops of small bowel within the midabdomen with associated mesenteric edema and fluid. No evidence of bowel obstruction. Infectious and ischemic enteritis are considered. Lack of intravenous contrast limits assessment of the latter. These correlate with lactate levels and consider repeating the scan with angiographic and portal venous phase imaging to exclude mesenteric arterial and venous occlusion, as clinically indicated.
--- NOTE | ~2021-11-23 | XR_ITS ---
EXAMINATION: XR ABDOMEN KUB CLINICAL INDICATION: Epigastric pain COMPARISON: CT abdomen pelvis yesterday, 11/22/2021 TECHNIQUE: AP view of the abdomen. FINDINGS: No evidence of bowel obstruction. Postop changes seen in the pelvis with colonic anastomosis and multiple surgical clips. The lung bases are unremarkable. XR/XR KUB IMPRESSION: No evidence of bowel obstruction
--- NOTE | ~2021-11-23 | CT_ITS ---
EXAMINATION: CT ANGIOGRAM ABDOMEN AND PELVIS CLINICAL INFORMATION: Severe epigastric pain COMPARISON: CT from 11/23/2021 and 11/22/2021 TECHNIQUE: Multiple axial images were obtained through the abdomen and pelvis and pelvis following the administration of 100 mL of Omnipaque 350 intravenous contrast. Acquisition performed in both the arterial and portal venous phase. Coronal, sagittal, and three-dimensional/MIP reformatted images are obtained and reviewed. Images were reviewed on a dedicated 3-D workstation. This CT examination was performed using dose optimization techniques as appropriate, variously including the following: *Automated exposure control *Adjustment of mA and/or kV according to patient size (this includes techniques or standardized protocols for targeted exams where dose is matched to indication/reason for exam; i.e. extremities or head) *Use of iterative reconstruction technique DLP: 1751 mGy-cm FINDINGS: Vascular: 1. The abdominal aorta is normal in course and caliber. The iliac vasculature is patent with normal caliber. No dissection. 2. There are single bilateral renal arteries which are widely patent. 3. The celiac axis, superior mesenteric artery, and inferior mesenteric artery are patent. The branches of the superior mesenteric artery in the region of enteritis appear normally opacified. 4. The portal vein is patent. The superior mesenteric vein is patent. Nonvascular: LUNG BASES: Minimal bibasilar atelectasis. LIVER, GALLBLADDER, AND BILIARY TREE: The liver is normal in size, shape, and attenuation. No focal liver lesion. There is mild intrahepatic biliary ductal dilatation again noted.. The gallbladder is absent. PANCREAS: Unremarkable. SPLEEN: Unremarkable. ADRENAL GLANDS: Unremarkable. KIDNEYS AND URETERS: The kidneys are normal in size, shape, and attenuation. No hydronephrosis or hydroureter. The left lower pole renal calculus is again noted. BLADDER: Unremarkable. GASTROINTESTINAL TRACT: The stomach is unremarkable. Prominent duodenal diverticulum present. Normal caliber small bowel. As seen on the recent prior CT, there is wall thickening with adjacent inflammatory stranding of the fat involving small bowel in the left anterior abdomen. Colonic diverticulosis without diverticulitis. Distal colonic anastomosis noted. No free air. ABDOMINAL WALL: No significant hernia is appreciated. LYMPH NODES: Normal. PELVIC VISCERA: Uterus not seen. No adnexal mass. OSSEOUS STRUCTURES: Sclerotic focus of the superior endplate of T11 is again noted. Mild degenerative changes of the spine. Degenerative changes of the hips. CT/CT angio abdomen pelvis IMPRESSION: 1. No vascular abnormality to suggest mesenteric ischemia. 2. Persistent inflammatory change of the fat in the region of small bowel wall thickening in the left anterior abdomen. The wall thickening is less prominent than on the recent prior study. This is suggestive of enteritis, likely infectious or inflammatory. Fleischner guidelines were followed.
[2021-11-23 19:12] VITALS: BP 160/88; PULSE 92; O2SAT 98; BMI 34.2
--- NOTE | 2021-11-23 19:58 | ED.ABDPAIN ---
HPI - Abdominal Pain General Chief Complaint: Abdominal Pain <EDMUND Anderson Last Filed: 11/24/21 03:55> Stated Complaint: Abd pain <EDMUND Anderson - Last Filed: 11/24/21 03:55> Time Seen by Provider: 11/23/21 19:35 <EDMUND Anderson Last Filed: 11/24/21 03:55> Source: patient <EDMUND Anderson - Last Filed: 11/24/21 03:55> Mode of arrival: ambulatory <EDMUND Anderson Last Filed: 11/24/21 03:55> Limitations: no limitations <EDMUND Anderson Last Filed: 11/24/21 03:55> History of Present Illness HPI narrative: This is a 71-year-old female past medical history significant for CKD, COPD, diabetes, GERD, SBO, diabetes, obesity presenting to the emergency department with complaints of epigastric abdominal pain. Patient tells me that she was seen here yesterday had a full workup which was unremarkable, they told her that her abdominal pain was likely secondary to constipation. Patient tells me she went home she took all medications as prescribed had a large bowel movement she now reports symptoms diarrhea and severe epigastric pain, 10/10 nonradiating. She tells me that it is an aching pain. She denies fevers, chills, nausea, vomiting, chest pain, shortness of breath, headache, dizziness. <EDMUND Anderson Last Filed: 11/24/21 03:55> MD elicited complaint: abdominal pain <EDMUND Anderson Last Filed: 11/24/21 03:55> Pertinent past history: constipation <EDMUND Anderson Last Filed: 11/24/21 03:55> Onset (ago): day(s) (1) <EDMUND Anderson Last Filed: 11/24/21 03:55> Pain Consistency: constant <EDMUND Anderson Last Filed: 11/24/21 03:55> Location: epigastric <EDMUND Anderson Last Filed: 11/24/21 03:55> Severity: severe <EDMUND Anderson - Last Filed: 11/24/21 03:55> Pain scale (0-10): 10 <EDMUND Anderson - Last Filed: 11/24/21 03:55> Quality: cramping <EDMUND Anderson - Last Filed: 11/24/21 03:55> Radiation: none <EDMUND Anderson - Last Filed: 11/24/21 03:55> Migration to: no migration <EDMUND Anderson - Last Filed: 11/24/21 03:55> Exacerbating factors: nothing <EDMUND Anderson - Last Filed: 11/24/21 03:55> Relieving factors: nothing <EDMUND Anderson - Last Filed: 11/24/21 03:55> Associated symptoms: denies other symptoms <EDMUND Anderson - Last Filed: 11/24/21 03:55> Related Data Home Medications: Home Medications Medication Instructions Recorded Confirmed bupropion HCl 150 mg 24 hr tablet, 150 mg PO DAILY 04/25/20 10/30/21 extended release oxygen-air delivery systems #1 04/25/20 10/30/21 gabapentin 300 mg capsule 900 mg PO BEDTIME cap 05/13/21 10/30/21 gabapentin 300 mg capsule 300 mg PO DAILY 06/29/21 10/30/21 hydroxyzine pamoate 25 mg capsule 1 cap PO BID 06/29/21 10/30/21 blood sugar diagnostic (FreeStyle 08/09/21 08/23/21 Lite Strips) insulin detemir U-100 100 unit/mL 20 unit SUBCUT DAILY 08/12/21 10/30/21 (3 mL) subcutaneous pen (Levemir FlexTouch U-100 Insulin) aspirin 81 mg chewable tablet 81 mg PO DAILY 10/01/21 10/30/21 lisinopril 5 mg tablet 1 tab PO DAILY 10/01/21 10/30/21 trazodone 100 mg tablet 200 mg PO BEDTIME 10/01/21 10/30/21 Previous Rx's Medication Instructions Recorded nebulizers (AeroEclipse II #1 ea 02/05/21 Nebulizer) albuterol sulfate 90 mcg/actuation 2 puff INHALATION Q4-6H PRN 30 05/13/21 aerosol inhaler (ProAir HFA) Days #8.5 g lancets 28 gauge #100 ea 06/24/21 montelukast 10 mg tablet 10 mg PO BEDTIME 90 Days #90 tab 06/24/21 diaper,brief,adult,disposable #64 ea 06/26/21 (Depend Underwear For Women S-M) atorvastatin 80 mg tablet 80 mg PO DAILY 90 Days #90 tab 08/07/21 pen needle, diabetic 31 gauge x #100 ea 08/09/2109/25 (BD Ultra-Fine Mini Pen Needle) pen needle, diabetic 31 gauge x #100 ea 08/12/2109/25 glipizide 2.5 mg tablet, extended 2.5 mg PO DAILY #30 tab 08/13/21 release 24 hr amlodipine 5 mg tablet (Norvasc) 5 mg PO DAILY 30 Days #90 tab 08/26/21 fluticasone propionate 50 1 spray INTRANASAL DAILY 30 Days 09/09/21 mcg/actuation nasal #16 g spray,suspension ropinirole 2 mg tablet 2 mg PO BID 90 Days #180 tab 09/16/21 docusate sodium 100 mg capsule 100 mg PO BID #60 cap 10/07/21 (Colace) oxycodone-acetaminophen 5 mg-325 1 tab PO TID PRN #20 tab 10/07/21 mg tablet (Percocet) furosemide 20 mg tablet (Lasix) 20 mg PO Q OTHER DAY 28 Days #14 10/14/21 tab acyclovir 5 % topical ointment 1 appl TOPICAL 6XD 7 Days #5 g 11/18/21 (Zovirax) albuterol sulfate 1.25 mg/3 mL 2.5 mg (6 mL) INHALATION Q4-6H PRN 11/20/21 solution for nebulization 30 Days #90 ml MDD copd hydrocortisone 2.5 % topical cream 1 appl TOPICAL BID PRN #20 g 11/20/21 <EDMUND Anderson - Last Filed: 11/24/21 03:55> Allergies/Adverse Reactions: Allergies Allergy/AdvReac Type Severity Reaction Status Date / Time adhesive tape [ADHESIVE TAPE] Allergy Intermediate RASH Verified 11/18/21 14:36 trimethobenzamide Allergy Mild NAUSEA Verified 11/18/21 14:36 [From TIG] environmental Allergy Intermediate Nasal Uncoded 11/18/21 14:36 congestion <EDMUND Anderson - Last Filed: 11/24/21 03:55> Review of Systems Review of Systems Constitutional : No Weight loss, No Fever, No Chills, No Fatigue, No Malaise ENT/Mouth : No sore throat, No Rhinorrhea Eyes: No Eye Pain, No Swelling, No Redness Cardiovascular : No Chest Pain, No SOB, No Dyspnea on Exertion, No Orthopnea, No Edema, No Palpitations Respiratory : No Cough, No Sputum, No Wheezing Gastrointestinal : No Nausea, No Vomiting, + Diarrhea, + Constipation, + abdominal Pain, No Hematochezia, No Melena Genitourinary : No Dysuria, No Urinary Frequency, No Hematuria, Musculoskeletal : No joint pain, No Myalgias, No Joint Swelling Skin : No Skin Lesions, No rash Neuro : No Weakness, No Numbness, No Dizziness, No Headache Psych : No Anxiety/Panic, No Depression All other systems reviewed and are negative <EDMUND Anderson - Last Filed: 11/24/21 03:55> Yes all other systems are reviewed and are negative <EDMUND Anderson - Last Filed: 11/24/21 03:55> [facility] Past Medical History Attestation statement: The following information was validated with the patient. <EDMUND Anderson - Last Filed: 11/24/21 03:55> Source: old records reviewed and nursing notes reviewed <EDMUND Anderson - Last Filed: 11/24/21 03:55> Medical History: Medical History Allergic rhinitis Anemia Arthritis CKD (chronic kidney disease) Constipation due to opioid therapy COPD exacerbation CPAP (continuous positive airway pressure) dependence Diabetes Elevated cholesterol GERD (gastroesophageal reflux disease) History of adrenal adenoma History of diverticulitis History of restless legs syndrome Hx SBO Hyperlipidemia Hypoxemia Morbid obesity Obesity (BMI 30-39.9) ALDO (obstructive sleep apnea) Osteoarthritis of left knee Osteochondroma of left femur Urinary tract infection <EDMUND Anderson - Last Filed: 11/24/21 03:55> Surgical History: Surgical History H/O colonoscopy H/O excision of mass H/O exploratory laparotomy History of appendectomy History of arthroscopy of left knee History of cholecystectomy History of hysterectomy History of oophorectomy History of partial colectomy History of surgery Hx of cataract extraction <EDMUND Anderson - Last Filed: 11/24/21 03:55> Family History Family History: Family History Father HTN (hypertension) Diabetes mellitus Mother HTN (hypertension) Liver cancer <EDMUND Anderson - Last Filed: 11/24/21 03:55> Social History Social History: Social History 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: Family 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 Other:: ex Housing: Apartment Are you a primary urgent care physician assistant to a significant other at home: No Do you presently have visiting nurse or other home services: Yes ([facility]) Alcohol intake: never Patient Tobacco Use Status: Never used Tobacco Second Hand Smoke Exposure: Yes Use of substances other than those prescribed or required for medical reasons: No Advance Directives: Yes Advance Directives Information Provided: No Advance Directives on File: No Advance Directives Date on File: 07/08/21 service: No Current occupational status: retired Cognitive needs: No Hearing needs: No Vision needs: No <EDMUND Anderson - Last Filed: 11/24/21 03:55> Physical Exam ED Vital Signs: Vital Signs - 24 hr 11/24/21 03:49 11/24/21 06:31 Temperature 98.2 F Pulse Rate 90 94 Blood Pressure 133/57 L 129/64 Pulse Oximetry 95 98 BMI result Body Mass Index 34.2 <EDMUND Anderson - Last Filed: 11/24/21 03:55> Vital Signs - 24 hr 11/24/21 03:49 11/24/21 06:31 Temperature 98.2 F Pulse Rate 90 94 Blood Pressure 133/57 L 129/64 Pulse Oximetry 95 98 BMI result Body Mass Index 34.2 <Maria Black MD - Last Filed: 11/24/21 06:49> Appearance: Alert.? Oriented X3.? No acute distress.? Head: Normocephalic, atraumatic, no step-offs or deformities Eyes: Pupils equal, round and reactive to light.? ENT: Pharynx normal.? Neck: Normal inspection.? Neck supple.? CVS: Normal heart rate and rhythm, normal rate low 100s.? Pulses normal.? Respiratory: No respiratory distress.? Breath sounds normal.? Abdomen: Soft and + pain in the epigastric region, nontender to bilateral lower quadrants common bilateral upper quadrants. Skin: Skin warm and dry.? Normal skin color.? Normal skin turgor.? Extremities: No lower extremity edema.? No calf ttp. 5/5 strength to bilateral upper and lower extremities Back: No midline tenderness, no C-spine tenderness, full range of motion, no CVA tenderness bilaterally Neuro: Oriented X 3.? No motor deficit.? No sensory deficit. CN 2-12 intact <EDMUND Anderson - Last Filed: 11/24/21 03:55> Course Reevaluation(s) Reevaluation #1: Patient is noted to have a significant leukocytosis with left shift. No acute electrolyte abnormalities requiring intervention. Patient is noted to have a slight AGUSTIN which appears to be around patient's baseline. At this time infection is suspected will order blood cultures, lactic and Zosyn. I will also repeat CT of abdomen and pelvis to ensure that patient does not have diverticulitis. Urine is also pending. <EDMUND Anderson - Last Filed: 11/24/21 03:55> Time: 23:00 <EDMUND Anderson Last Filed: 11/24/21 03:55> Reevaluation #2: Discuss this case with Dr. Sheikh who recommends a CT angiogram of the abdomen to rule out venous or arterial occlusions, as patient has a new onset white blood cell count home, increased lactic acid. At this time CTA of the abdomen will be ordered. <EDMUND Anderson - Last Filed: 11/24/21 03:55> Time: 00:14 <EMDUND Anderson Last Filed: 11/24/21 03:55> Reevaluation #3: CT angiogram of the abdomen pending. I did reach out to Dr. Fuller and expressed my concern for mesenteric ischemia. He tells me that if the scan shows that this requires bypassing patient will likely require transfer to another facility however if it is a mesenteric ischemia without complications patient can likely stay here in-house. I have given report to Dr. Black, requested that we inform him of any abnormal CT results. Will continue to monitor <EDMUND Anderson - Last Filed: 11/24/21 03:55> Time: 02:56 <EDMUND Anderson - Last Filed: 11/24/21 03:55> Additional Reevaluation(s): Troponin added, EKG normal sinus rhythm no signs atrial fibrillation. Report given to . <EDMUND Anderson - Last Filed: 11/24/21 03:55> Troponin added, EKG normal sinus rhythm no signs atrial fibrillation. Report given to . Patient was signed out to me to follow-up on CT angio for possible mesenteric ischemia. On review of these results that CT angio was negative for mesenteric ischemia up and only identify enteritis. This was communicated to both surgery as well as to the inpatient hospitalist the latter of which accepted admission. Patient has remained hemodynamically stable, received an a, as well as pain medication. <Maria Black MD - Last Filed: 11/24/21 06:49> MDM - Abdominal Pain MDM Narrative Medical decision making narrative: 2030 71-year-old female presenting to the emergency department with epigastric pain status post episode of constipation. Patient now reports she is having some diarrhea and severe epigastric pain. Physical examination significant for pain with palpation to epigastric region with normal active bowel sounds. No CVA tenderness. Regular rate and rhythm. Lungs clear. Neuro exam nonfocal. Vitals were not put in by nursing patient on portable monitor 98% 2L, RR 16, Pulse around 100, w/ regular rate and rythem. Plan at this time is basic labs, urine, KUB. I reviewed patient's imaging from yesterday she was noted to have constipation, diverticulosis without diverticulitis. Patient has no history of aneurysms, vasculature on yesterday's CT scan of the abdomen was not within normal limits therefore very low suspicion for abdominal aneurysm/dissection. Patient's epigastric pain likely secondary to constipation which is now been resolved. <EDMUND Anderson - Last Filed: 11/24/21 03:55> Medical Records Attestation: I reviewed the patient's medical records. <EDMUND Anderson - Last Filed: 11/24/21 03:55> Lab Data Attestation: I reviewed the patient's lab results. <EDMUND Anderson - Last Filed: 11/24/21 03:55> Result diagrams: : 11/23/21 20:59 11/24/21 01:35 <EDMUND Anderson - Last Filed: 11/24/21 03:55> Labs: Lab Results 11/23/21 11/23/21 11/23/21 Range/Units 20:59 20:59 20:59 WBC 16.4 H (4.8-10.8) X10*3/uL RBC 4.87 (4.20-5.50) X10*6/uL Hgb 13.1 (12.0-16.0) g/dl Hct 41.3 (37.0-47.0) % MCV 84.8 (80.0-98.0) fL MCH 26.9 L (27.0-33.0) pg MCHC 31.7 (31.0-35.0) g/dl RDW 13.2 (11.0-16.0) % Plt Count Not Reportable MPV Not Reportable Immature Gran % (Auto) 0.4 (0.0-0.4) % Neut % (Auto) 80.1 H (45-73) % Lymph % (Auto) 12.4 L (20-40) % [place] % (Auto) 5.7 (2-11) % Eos % (Auto) 1.2 (0-4) % Baso % (Auto) 0.2 (0-2) % Lymph # (Auto) 2.0 (1.2-4.9) X10*3/uL [place] # (Auto) 0.9 (0.1-1.2) X10*3/uL Eos # (Auto) 0.2 (0.0-0.4) X10*3/uL Baso # (Auto) 0.0 (0.0-0.2) X10*3/uL Abs Immat Gran (auto) 0.06 H (0.00-0.03) X10*3/uL Absolute Neuts (auto) 13.2 H (2.0-8.3) x10*3/uL Absolute Nucleated RBC 0.000 (0.0-0.012) X10*3/uL Nucleated RBC % (auto) 0.0 (0.0-0.2) /100WBC ESR 29 H (0-20) MM/HR Sodium 139 (135-145) mmol/L Potassium 4.7 (3.3-5.1) mmol/L Chloride 101 (96-108) mmol/L Carbon Dioxide 26 (22-29) mmol/L Anion Gap 17 (12-20) BUN 29 H (9-16) mg/dL Creatinine 1.74 H (0.5-1.4) mg/dL Estim Creat Clear Calc 27.6 Estimated GFR 29 Random Glucose 160 H (60-115) mg/dL Lactic Acid (0.5-2.0) mmol/L Lactic Acid F/U @ 2Hr (0.5-2.0) mmol/L Calcium 9.7 (8.4-10.2) mg/dL Magnesium 1.7 (1.6-2.6) mg/dL Total Bilirubin 0.3 (0.0-1.0) mg/dL AST 21 (5-31) U/L ALT 20 (0-31) U/L Alkaline Phosphatase 42 (39-117) U/L Troponin I High Sens (<3.5-17.0) ng/L C-Reactive Protein 2.02 H (< or = 0.50) mg/dL Total Protein 6.9 (6.5-8.0) g/dL Albumin 3.9 (3.5-5.0) g/dL Lipase 15 (8-78) U/L Urine Color Urine Appearance Urine pH (5.0-8.0) Ur Specific [place] (1.005-1.025) Urine Protein (NEG-TRACE) MG/DL Urine Glucose (UA) (NEG) MG/DL Urine Ketones (NEG) MG/DL Urine Blood (NEG) Urine Nitrite (NEG) Ur Leukocyte Esterase (NEG) Urine RBC (0) /HPF Urine WBC (0-4) /HPF Ur Squamous Epith Cells /LPF Uric Acid Crystals /LPF Urine Bacteria /LPF Urine Yeast /HPF 11/23/21 11/24/21 11/24/21 Range/Units 23:10 01:35 01:40 WBC (4.8-10.8) X10*3/uL RBC (4.20-5.50) X10*6/uL Hgb (12.0-16.0) g/dl Hct (37.0-47.0) % MCV (80.0-98.0) fL MCH (27.0-33.0) pg MCHC (31.0-35.0) g/dl RDW (11.0-16.0) % Plt Count MPV Immature Gran % (Auto) (0.0-0.4) % Neut % (Auto) (45-73) % Lymph % (Auto) (20-40) % [place] % (Auto) (2-11) % Eos % (Auto) (0-4) % Baso % (Auto) (0-2) % Lymph # (Auto) (1.2-4.9) X10*3/uL [place] # (Auto) (0.1-1.2) X10*3/uL Eos # (Auto) (0.0-0.4) X10*3/uL Baso # (Auto) (0.0-0.2) X10*3/uL Abs Immat Gran (auto) (0.00-0.03) X10*3/uL Absolute Neuts (auto) (2.0-8.3) x10*3/uL Absolute Nucleated RBC (0.0-0.012) X10*3/uL Nucleated RBC % (auto) (0.0-0.2) /100WBC ESR (0-20) MM/HR Sodium 140 (135-145) mmol/L Potassium 4.2 (3.3-5.1) mmol/L Chloride 105 (96-108) mmol/L Carbon Dioxide 24 (22-29) mmol/L Anion Gap 15 (12-20) BUN 26 H (9-16) mg/dL Creatinine 1.54 H (0.5-1.4) mg/dL Estim Creat Clear Calc 31.2 Estimated GFR 33 Random Glucose 161 H (60-115) mg/dL Lactic Acid 2.1 H* (0.5-2.0) mmol/L Lactic Acid F/U @ 2Hr 2.0 (0.5-2.0) mmol/L Calcium 8.3 L D (8.4-10.2) mg/dL Magnesium (1.6-2.6) mg/dL Total Bilirubin (0.0-1.0) mg/dL AST (5-31) U/L ALT (0-31) U/L Alkaline Phosphatase (39-117) U/L Troponin I High Sens (<3.5-17.0) ng/L C-Reactive Protein (< or = 0.50) mg/dL Total Protein (6.5-8.0) g/dL Albumin (3.5-5.0) g/dL Lipase (8-78) U/L Urine Color Urine Appearance Urine pH (5.0-8.0) Ur Specific [place] (1.005-1.025) Urine Protein (NEG-TRACE) MG/DL Urine Glucose (UA) (NEG) MG/DL Urine Ketones (NEG) MG/DL Urine Blood (NEG) Urine Nitrite (NEG) Ur Leukocyte Esterase (NEG) Urine RBC (0) /HPF Urine WBC (0-4) /HPF Ur Squamous Epith Cells /LPF Uric Acid Crystals /LPF Urine Bacteria /LPF Urine Yeast /HPF 11/24/21 11/24/21 Range/Units 03:03 06:07 WBC (4.8-10.8) X10*3/uL RBC (4.20-5.50) X10*6/uL Hgb (12.0-16.0) g/dl Hct (37.0-47.0) % MCV (80.0-98.0) fL MCH (27.0-33.0) pg MCHC (31.0-35.0) g/dl RDW (11.0-16.0) % Plt Count MPV Immature Gran % (Auto) (0.0-0.4) % Neut % (Auto) (45-73) % Lymph % (Auto) (20-40) % [place] % (Auto) (2-11) % Eos % (Auto) (0-4) % Baso % (Auto) (0-2) % Lymph # (Auto) (1.2-4.9) X10*3/uL [place] # (Auto) (0.1-1.2) X10*3/uL Eos # (Auto) (0.0-0.4) X10*3/uL Baso # (Auto) (0.0-0.2) X10*3/uL Abs Immat Gran (auto) (0.00-0.03) X10*3/uL Absolute Neuts (auto) (2.0-8.3) x10*3/uL Absolute Nucleated RBC (0.0-0.012) X10*3/uL Nucleated RBC % (auto) (0.0-0.2) /100WBC ESR (0-20) MM/HR Sodium (135-145) mmol/L Potassium (3.3-5.1) mmol/L Chloride (96-108) mmol/L Carbon Dioxide (22-29) mmol/L Anion Gap (12-20) BUN (9-16) mg/dL Creatinine (0.5-1.4) mg/dL Estim Creat Clear Calc Estimated GFR Random Glucose (60-115) mg/dL Lactic Acid (0.5-2.0) mmol/L Lactic Acid F/U @ 2Hr (0.5-2.0) mmol/L Calcium (8.4-10.2) mg/dL Magnesium (1.6-2.6) mg/dL Total Bilirubin (0.0-1.0) mg/dL AST (5-31) U/L ALT (0-31) U/L Alkaline Phosphatase (39-117) U/L Troponin I High Sens < 3.5 (<3.5-17.0) ng/L C-Reactive Protein (< or = 0.50) mg/dL Total Protein (6.5-8.0) g/dL Albumin (3.5-5.0) g/dL Lipase (8-78) U/L Urine Color YELLOW Urine Appearance HAZY Urine pH 5.5 (5.0-8.0) Ur Specific [place] 1.025 (1.005-1.025) Urine Protein NEG (NEG-TRACE) MG/DL Urine Glucose (UA) NEG (NEG) MG/DL Urine Ketones NEG (NEG) MG/DL Urine Blood 2+ H (NEG) Urine Nitrite NEG (NEG) Ur Leukocyte Esterase NEG (NEG) Urine RBC 0-2 (0) /HPF Urine WBC 0-2 (0-4) /HPF Ur Squamous Epith Cells 3+ /LPF Uric Acid Crystals 2+ /LPF Urine Bacteria 1+ /LPF Urine Yeast 1+ /HPF <EDMUND Anderson - Last Filed: 11/24/21 03:55> Lab Results 11/23/21 11/23/21 11/23/21 Range/Units 20:59 20:59 20:59 WBC 16.4 H (4.8-10.8) X10*3/uL RBC 4.87 (4.20-5.50) X10*6/uL Hgb 13.1 (12.0-16.0) g/dl Hct 41.3 (37.0-47.0) % MCV 84.8 (80.0-98.0) fL MCH 26.9 L (27.0-33.0) pg MCHC 31.7 (31.0-35.0) g/dl RDW 13.2 (11.0-16.0) % Plt Count Not Reportable MPV Not Reportable Immature Gran % (Auto) 0.4 (0.0-0.4) % Neut % (Auto) 80.1 H (45-73) % Lymph % (Auto) 12.4 L (20-40) % [place] % (Auto) 5.7 (2-11) % Eos % (Auto) 1.2 (0-4) % Baso % (Auto) 0.2 (0-2) % Lymph # (Auto) 2.0 (1.2-4.9) X10*3/uL [place] # (Auto) 0.9 (0.1-1.2) X10*3/uL Eos # (Auto) 0.2 (0.0-0.4) X10*3/uL Baso # (Auto) 0.0 (0.0-0.2) X10*3/uL Abs Immat Gran (auto) 0.06 H (0.00-0.03) X10*3/uL Absolute Neuts (auto) 13.2 H (2.0-8.3) x10*3/uL Absolute Nucleated RBC 0.000 (0.0-0.012) X10*3/uL Nucleated RBC % (auto) 0.0 (0.0-0.2) /100WBC ESR 29 H (0-20) MM/HR Sodium 139 (135-145) mmol/L Potassium 4.7 (3.3-5.1) mmol/L Chloride 101 (96-108) mmol/L Carbon Dioxide 26 (22-29) mmol/L Anion Gap 17 (12-20) BUN 29 H (9-16) mg/dL Creatinine 1.74 H (0.5-1.4) mg/dL Estim Creat Clear Calc 27.6 Estimated GFR 29 Random Glucose 160 H (60-115) mg/dL Lactic Acid (0.5-2.0) mmol/L Lactic Acid F/U @ 2Hr (0.5-2.0) mmol/L Calcium 9.7 (8.4-10.2) mg/dL Magnesium 1.7 (1.6-2.6) mg/dL Total Bilirubin 0.3 (0.0-1.0) mg/dL AST 21 (5-31) U/L ALT 20 (0-31) U/L Alkaline Phosphatase 42 (39-117) U/L Troponin I High Sens (<3.5-17.0) ng/L C-Reactive Protein 2.02 H (< or = 0.50) mg/dL Total Protein 6.9 (6.5-8.0) g/dL Albumin 3.9 (3.5-5.0) g/dL Lipase 15 (8-78) U/L Urine Color Urine Appearance Urine pH (5.0-8.0) Ur Specific [place] (1.005-1.025) Urine Protein (NEG-TRACE) MG/DL Urine Glucose (UA) (NEG) MG/DL Urine Ketones (NEG) MG/DL Urine Blood (NEG) Urine Nitrite (NEG) Ur Leukocyte Esterase (NEG) Urine RBC (0) /HPF Urine WBC (0-4) /HPF Ur Squamous Epith Cells /LPF Uric Acid Crystals /LPF Urine Bacteria /LPF Urine Yeast /HPF 05/14/22 05/15/22 05/15/22 Range/Units 23:10 01:35 01:40 WBC (4.8-10.8) X10*3/uL RBC (4.20-5.50) X10*6/uL Hgb (12.0-16.0) g/dl Hct (37.0-47.0) % MCV (80.0-98.0) fL MCH (27.0-33.0) pg MCHC (31.0-35.0) g/dl RDW (11.0-16.0) % Plt Count MPV Immature Gran % (Auto) (0.0-0.4) % Neut % (Auto) (45-73) % Lymph % (Auto) (20-40) % [place] % (Auto) (2-11) % Eos % (Auto) (0-4) % Baso % (Auto) (0-2) % Lymph # (Auto) (1.2-4.9) X10*3/uL [place] # (Auto) (0.1-1.2) X10*3/uL Eos # (Auto) (0.0-0.4) X10*3/uL Baso # (Auto) (0.0-0.2) X10*3/uL Abs Immat Gran (auto) (0.00-0.03) X10*3/uL Absolute Neuts (auto) (2.0-8.3) x10*3/uL Absolute Nucleated RBC (0.0-0.012) X10*3/uL Nucleated RBC % (auto) (0.0-0.2) /100WBC ESR (0-20) MM/HR Sodium 140 (135-145) mmol/L Potassium 4.2 (3.3-5.1) mmol/L Chloride 105 (96-108) mmol/L Carbon Dioxide 24 (22-29) mmol/L Anion Gap 15 (12-20) BUN 26 H (9-16) mg/dL Creatinine 1.54 H (0.5-1.4) mg/dL Estim Creat Clear Calc 31.2 Estimated GFR 33 Random Glucose 161 H (60-115) mg/dL Lactic Acid 2.1 H* (0.5-2.0) mmol/L Lactic Acid F/U @ 2Hr 2.0 (0.5-2.0) mmol/L Calcium 8.3 L D (8.4-10.2) mg/dL Magnesium (1.6-2.6) mg/dL Total Bilirubin (0.0-1.0) mg/dL AST (5-31) U/L ALT (0-31) U/L Alkaline Phosphatase (39-117) U/L Troponin I High Sens (<3.5-17.0) ng/L C-Reactive Protein (< or = 0.50) mg/dL Total Protein (6.5-8.0) g/dL Albumin (3.5-5.0) g/dL Lipase (8-78) U/L Urine Color Urine Appearance Urine pH (5.0-8.0) Ur Specific [place] (1.005-1.025) Urine Protein (NEG-TRACE) MG/DL Urine Glucose (UA) (NEG) MG/DL Urine Ketones (NEG) MG/DL Urine Blood (NEG) Urine Nitrite (NEG) Ur Leukocyte Esterase (NEG) Urine RBC (0) /HPF Urine WBC (0-4) /HPF Ur Squamous Epith Cells /LPF Uric Acid Crystals /LPF Urine Bacteria /LPF Urine Yeast /HPF 11/24/21 11/24/21 Range/Units 03:03 06:07 WBC (4.8-10.8) X10*3/uL RBC (4.20-5.50) X10*6/uL Hgb (12.0-16.0) g/dl Hct (37.0-47.0) % MCV (80.0-98.0) fL MCH (27.0-33.0) pg MCHC (31.0-35.0) g/dl RDW (11.0-16.0) % Plt Count MPV Immature Gran % (Auto) (0.0-0.4) % Neut % (Auto) (45-73) % Lymph % (Auto) (20-40) % [place] % (Auto) (2-11) % Eos % (Auto) (0-4) % Baso % (Auto) (0-2) % Lymph # (Auto) (1.2-4.9) X10*3/uL [place] # (Auto) (0.1-1.2) X10*3/uL Eos # (Auto) (0.0-0.4) X10*3/uL Baso # (Auto) (0.0-0.2) X10*3/uL Abs Immat Gran (auto) (0.00-0.03) X10*3/uL Absolute Neuts (auto) (2.0-8.3) x10*3/uL Absolute Nucleated RBC (0.0-0.012) X10*3/uL Nucleated RBC % (auto) (0.0-0.2) /100WBC ESR (0-20) MM/HR Sodium (135-145) mmol/L Potassium (3.3-5.1) mmol/L Chloride (96-108) mmol/L Carbon Dioxide (22-29) mmol/L Anion Gap (12-20) BUN (9-16) mg/dL Creatinine (0.5-1.4) mg/dL Estim Creat Clear Calc Estimated GFR Random Glucose (60-115) mg/dL Lactic Acid (0.5-2.0) mmol/L Lactic Acid F/U @ 2Hr (0.5-2.0) mmol/L Calcium (8.4-10.2) mg/dL Magnesium (1.6-2.6) mg/dL Total Bilirubin (0.0-1.0) mg/dL AST (5-31) U/L ALT (0-31) U/L Alkaline Phosphatase (39-117) U/L Troponin I High Sens < 3.5 (<3.5-17.0) ng/L C-Reactive Protein (< or = 0.50) mg/dL Total Protein (6.5-8.0) g/dL Albumin (3.5-5.0) g/dL Lipase (8-78) U/L Urine Color YELLOW Urine Appearance HAZY Urine pH 5.5 (5.0-8.0) Ur Specific [place] 1.025 (1.005-1.025) Urine Protein NEG (NEG-TRACE) MG/DL Urine Glucose (UA) NEG (NEG) MG/DL Urine Ketones NEG (NEG) MG/DL Urine Blood 2+ H (NEG) Urine Nitrite NEG (NEG) Ur Leukocyte Esterase NEG (NEG) Urine RBC 0-2 (0) /HPF Urine WBC 0-2 (0-4) /HPF Ur Squamous Epith Cells 3+ /LPF Uric Acid Crystals 2+ /LPF Urine Bacteria 1+ /LPF Urine Yeast 1+ /HPF <Maria Black MD - Last Filed: 11/24/21 06:49> ECG Data Attestation: I personally reviewed and interpreted this ECG as follows: <EDMUND Anderson - Last Filed: 11/24/21 03:55> ECG interpretation date: 11/24/21 <EDMUND Anderson - Last Filed: 11/24/21 03:55> ECG interpretation time: 03:50 <EDMUND Anderson - Last Filed: 11/24/21 03:55> Prior ECG tracings: available for review <EDMUND Anderson - Last Filed: 11/24/21 03:55> Interpretation: Ventricular rate of 89, MD normal, QRS normal, QT/QTC normal. No evidence signs of ischemia. No significant changes from September 2021 <EDMUND Anderson - Last Filed: 11/24/21 03:55> Critical Care Time Critical Care Time Critical Care Time: No <EDMUND Anderson Last Filed: 11/24/21 03:55> Discharge Plan Discharge Clinical Impression: Enteritis, ALDO (obstructive sleep apnea), Diabetes <EDMUND Anderson Last Filed: 11/24/21 03:55> Patient Disposition: Admitted As Inpatient <EDMUND Anderson Last Filed: 11/24/21 03:55>
[2021-11-23 21:03] LABS: MANUAL DIFF FLAG NO
[2021-11-23] MEDS: oxyCODONE HCl Immed Release 5 MG TABLET PO (21:05)
[2021-11-23 21:13] LABS: Basophils Percent Auto 0.2 % (0-2); Eosinophils Absolute Auto 0.2 X10*3/uL (0.0-0.4); Eosinophils Percent Auto 1.2 % (0-4); Hemoglobin 13.1 g/dl (12.0-16.0); Imm Gran Pct Auto 0.4 % (0.0-0.4); PLT CLUMP 1; SCAN SMEAR FLAG 1
[2021-11-23 21:15] LABS: Hematocrit 41.3 % (37.0-47.0); Imm Gran Abs Auto 0.06 X10*3/uL (0.00-0.03); Lymphocytes Percent Auto 12.4 % (20-40); Mean Corpuscular HGB Conc 31.7 g/dl (31.0-35.0); Mean Corpuscular Hemoglobin 26.9 pg (27.0-33.0); Mean Corpuscular Volume 84.8 fL (80.0-98.0); Monocytes Absolute Auto 0.9 X10*3/uL (0.1-1.2); Monocytes Percent Auto 5.7 % (2-11); Neutrophils Absolute Auto 13.2 x10*3/uL (2.0-8.3); Neutrophils Percent Auto 80.1 % (45-73); Red Blood Count 4.87 X10*6/uL (4.20-5.50); Red Cell Distribution Width 13.2 % (11.0-16.0)
[2021-11-23 21:43] LABS: White Blood Count 16.4 X10*3/uL (4.8-10.8)
[2021-11-23 21:50] LABS: Alanine Aminotransferase 20 U/L (0-31); Albumin Level 3.9 g/dL (3.5-5.0); Alkaline Phosphatase 42 U/L (39-117); Anion Gap 17 (12-20); Aspartate Amino Transferase 21 U/L (5-31); Bilirubin Total 0.3 mg/dL (0.0-1.0); Blood Urea Nitrogen 29 mg/dL (9-16); Calcium 9.7 mg/dL (8.4-10.2); Carbon Dioxide 26 mmol/L (22-29); Chloride 101 mmol/L (96-108); Creatinine Clr Calc Pharmacy 27.6; Estimated Glomerular Filt Rate 29; Glucose Random 160 mg/dL (60-115); Lipase 15 U/L (8-78); Magnesium 1.7 mg/dL (1.6-2.6); Potassium 4.7 mmol/L (3.3-5.1); Sodium 139 mmol/L (135-145); Total Protein 6.9 g/dL (6.5-8.0)
[2021-11-23] MEDS: Magnesium Hydrox/Alum Hydrox 30 ML ORAL.SUSP PO (23:27)
[2021-11-23] MEDS: Piperacillin Sodium/Tazobactam 3.375 GM in 0.9 % Sodium Chloride 50 ML IV (23:28)
[2021-11-23] MEDS: 0.9 % Sodium Chloride 1,000 ML 999 ML IV (23:29)
[2021-11-23 23:49] LABS: Lactic Acid 2.1 mmol/L (0.5-2.0)
--- NOTE | 2021-11-23 23:57 | PC.NURSE ---
Reported critical lab to Rosario Gabriel.
[2021-11-24 00:20] LABS: C Reactive Protein 2.02 mg/dL (< or = 0.50)
[2021-11-24] MEDS: 0.9 % Sodium Chloride 1,000 ML 999 ML IV (00:25)
[2021-11-24 00:44] LABS: Erythrocyte Sedimentation Rate 29 MM/HR (0-20)
[2021-11-24 01:17] LABS: Reflex Lactate? Lactic Acid Added
[2021-11-24] MEDS: Morphine Sulfate 4 MG/ML CARTRIDGE IVPUSH (01:19)
[2021-11-24 02:00] LABS: Anion Gap 15 (12-20); Blood Urea Nitrogen 26 mg/dL (9-16); Calcium 8.3 mg/dL (8.4-10.2); Carbon Dioxide 24 mmol/L (22-29); Chloride 105 mmol/L (96-108); Creatinine Clr Calc Pharmacy 31.2; Estimated Glomerular Filt Rate 33; Glucose Random 161 mg/dL (60-115); Potassium 4.2 mmol/L (3.3-5.1); Sodium 140 mmol/L (135-145)
--- NOTE | 2021-11-24 02:48 | ECG_ITS ---
Test Reason : palpitations Blood Pressure : / mmHG Vent. Rate : 089 BPM Atrial Rate : 089 BPM P-R Int : 174 ms QRS Dur : 068 ms QT Int : 362 ms P-R-T Axes : 050 008 032 degrees QTc Int : 440 ms Normal sinus rhythm Nonspecific ST and T wave abnormality Borderline ECG When compared with ECG of 22-NOV-2021 11:20, No significant changes seen Referred By: Megan Baez Electronically Signed By:CASH SHELBY
[2021-11-24 03:11] LABS: Appearance Urine HAZY; Color Urine YELLOW; Glucose Urine UA NEG (NEG); Leukocyte Esterase Urine NEG (NEG); Nitrite Urine NEG (NEG); PH 5.5 (5.0-8.0); Specific Gravity - Urine 1.025 (1.005-1.025); UACC Culture Trigger NO; Urine Blood 2+ (NEG); Urine Ketones NEG (NEG); Urine Protein NEG (NEG-TRACE)
[2021-11-24 03:17] LABS: Bacteria Urine 1+ /LPF; RBC Urine 0-2 /HPF (0); Squamous Epithelial Cell Urine 3+ /LPF; Uric Acid Crystals Urine 2+ /LPF; WBC Urine 0-2 /HPF (0-4)
--- NOTE | 2021-11-24 03:46 | PC.NURSE ---
I assumed nursing care of Mine upon her arrival to the ER via EMS. She presents for evaluation of persistent, severe epigastric abdominal pain. She was seen in our ED one day prior for constipation and was discharged home with instructions on what to take to relieve her constipation. She states she did so and had a very large bowel movement, but all day today has had the pain that she presents with. Mine is alert, oriented x 3, she makes eye contact with RN and has been calm and cooperative. Respirations are non-labored, no cyanosis, she speaks in full sentences, room air sat's 95% or better. She denies feeling short of breath. She complains of nausea but states she has not vomited. She has not had any difficulty voiding, and states that she has had multiple episodes of diarrhea prior to coming to ED (after the initial large bowel movement that relieved her constipation). Skin pale/warm/dry. She has ambulated throughout the department with one stand by assist with slow but otherwise steady gait. Since she arrived she has continuously complained of severe abdominal [pain, describes it as coming in waves and it seems to be worse with any movement (ie: getting OOB to walk to the bathroom). She was initially given PO Oxycodone without any change in her pain. In addition she was administered Morphine 4mg IVP and admitted to some relief of her pain (5/10 from 10). There has been no vomiting in the ED. Miguel is currently having her second CT (first was non-con, second with con) and will remain in the ED and we will continue to monitor her.
[2021-11-24 03:49] VITALS: BP 133/57; PULSE 90; TEMP 36.8; O2SAT 95
[2021-11-24] MEDS: iohexoL 350 MG/ML 100 ML INFUS..BTL IV (05:42)
[2021-11-24] MEDS: HYDROmorphone HCl 0.5 MG/0.5 ML SYRINGE IVPUSH (06:00)
[2021-11-24 06:31] VITALS: BP 129/64; PULSE 94; O2SAT 98
[2021-11-24 06:34] LABS: Troponin-I High Sensitivity < 3.5 ng/L (<3.5-17.0)
--- NOTE | 2021-11-24 07:18 | P.HPHOSP_ITS ---
History of Present Illness Date of Service: 11/24/21 Chief Complaint: Abdominal pain 71-year-old female patient with past medical history significant for hypertension, hyperlipidemia, diabetes mellitus, GERD, osteoarthritis, CKD3, osteo chondroma left femur history of COPD on 2 L of oxygen, history of obstructive sleep apnea on CPAP. She presented to ED with abdominal pain. She had been seen in ED the day before with abdominal pain that was attributed to constipation and was given bowel regimen which she took and had multiple bowel and thought she was all cleaned up , however she continues to have abdominal pain in the epigastric region and returned to the ED where a CT initially raised conncern of mesenteric ischemia but a repeat with contrast showed no evidence of mesenteric ischemia but rather enteritis coinciding with WBC of 16. She was given Zosyn in the ED. Review of Systems Review of Systems: Gen: no fever Resp: no sob, no cough CV: no chest, no OBRIEN, no leg edema GI: No n/v, no abd pain Neuro: No confusion Yes all other systems are reviewed and are negative ON LICENSE OF [facility] Medical History Allergic rhinitis Anemia Arthritis CKD (chronic kidney disease) Constipation due to opioid therapy COPD exacerbation CPAP (continuous positive airway pressure) dependence Diabetes Elevated cholesterol GERD (gastroesophageal reflux disease) History of adrenal adenoma History of diverticulitis History of restless legs syndrome Hx SBO Hyperlipidemia Hypoxemia Morbid obesity Obesity (BMI 30-39.9) ALDO (obstructive sleep apnea) Osteoarthritis of left knee Osteochondroma of left femur Urinary tract infection Family History Father HTN (hypertension) Diabetes mellitus Mother HTN (hypertension) Liver cancer Surgical History H/O colonoscopy H/O excision of mass H/O exploratory laparotomy History of appendectomy History of arthroscopy of left knee History of cholecystectomy History of hysterectomy History of oophorectomy History of partial colectomy History of surgery Hx of cataract extraction Social History 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: Family 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 Other:: EX Housing: House Are you a primary medicare coordinator to a significant other at home: No Do you presently have visiting nurse or other home services: No Alcohol intake: never Patient Tobacco Use Status: Never used Tobacco Smoked in Last 30 Days: No e-Cigarette/Vaping Use: Never Used Second Hand Smoke Exposure: No Use of substances other than those prescribed or required for medical reasons: No Currently Displaying Signs/Symptoms of Drug Intoxication Withdrawal: No Any prior treatment program specific to substance use: No Have you been hit, kicked, punched, or otherwise hurt by someone within the past year? If so, by whom?: No Do you feel safe in your current relationship?: No Current Relationship Is there a partner from a previous relationship who is making you feel unsafe now?: No Are you made to feel afraid or neglected: No Advance Directives: Yes Advance Directives Information Provided: No Advance Directives on File: No Advance Directives Date on File: 07/08/21 Do you have thoughts of harming others: None Do you have a plan to hurt others: No Plan Recently lost weight without trying: No Eating poorly because of decreased appetite: No Nutrition Risks: No Nutritional Risk Patient : No : No Poor oral hygiene: No service: No Current occupational status: retired Cognitive needs: No Hearing needs: No Vision needs: No Meds Allergies Allergy/AdvReac Type Severity Reaction Status Date / Time adhesive tape [ADHESIVE TAPE] Allergy Intermediate RASH Verified 11/18/21 14:36 trimethobenzamide Allergy Mild NAUSEA Verified 11/18/21 14:36 [From TIGAN] environmental Allergy Intermediate Nasal Uncoded 11/18/21 14:36 congestion Home Medications Medication Instructions Recorded Confirmed Last Taken Type bupropion HCl 150 mg 24 hr tablet, 150 mg PO DAILY 04/25/20 11/24/21 11/22/21 H istory extended release oxygen-air delivery systems #1 04/25/20 11/24/21 11/22/21 History gabapentin 300 mg capsule 900 mg PO BEDTIME cap 05/13/21 11/24/21 11/22/21 History gabapentin 300 mg capsule 300 mg PO DAILY 06/29/21 11/24/21 11/22/21 History hydroxyzine pamoate 25 mg capsule 1 cap PO BID 06/29/21 11/24/21 11/22/21 History blood sugar diagnostic (FreeStyle 08/09/21 11/24/21 11/22/21 History Lite Strips) insulin detemir U-100 100 unit/mL 20 unit SUBCUT DAILY 08/12/21 11/24/21 11/22/21 History (3 mL) subcutaneous pen (Levemir FlexTouch U-100 Insulin) aspirin 81 mg chewable tablet 81 mg PO DAILY 10/01/21 11/24/21 11/22/21 History lisinopril 5 mg tablet 1 tab PO DAILY 10/01/21 11/24/21 11/22/21 History trazodone 100 mg tablet 200 mg PO BEDTIME 10/01/21 11/24/21 11/22/21 History montelukast 10 mg tablet 10 mg PO DAILY 11/24/21 11/24/21 11/22/21 History Physical Exam Vital Signs and Narrative: Vital Signs: Last Vital Signs Temp 98.2 F 11/24/21 03:49 Pulse 94 11/24/21 06:31 BP 129/64 11/24/21 06:31 Pulse Ox 98 11/24/21 06:31 BMI result Body Mass Index 34.2 Const: Other: Constitutional: Alert, in no distress, overweight. Mental Status: Oriented to person, place and time. Eyes: Pupils are equal, round and reactive to light. Ear, Nose and Throat: Oropharynx clear, mucous membranes moist. Ears and nose without eformities. Respiratory: Clear to auscultation. No wheezing, rales or rhonchi. Cardiovascular: S1 S2 regular. No murmurs, rubs or gallops. Gastrointestinal: Abdomen soft, non-tender, non-distended. Normal bowel sounds.? Neurologic: Cranial nerves II-XII grossly intact. No focal neurological deficits. Moves all extremities spontaneously.? Skin: No rashes or lesions.? Musculoskeletal: No cyanosis or clubbing. Psychiatric: Normal mood and affect? Results Labs CBC and Chem 7: 11/25/21 08:43 11/24/21 01:35 Labs: Laboratory Results - last 24 hr 11/23/21 11/23/21 11/23/21 20:59 20:59 20:59 MCV 84.8 MCH 26.9 L MCHC 31.7 RDW 13.2 Plt Count Not Reportable MPV Not Reportable Immature Gran % (Auto) 0.4 Neut % (Auto) 80.1 H Lymph % (Auto) 12.4 L [place] % (Auto) 5.7 Eos % (Auto) 1.2 Baso % (Auto) 0.2 Lymph # (Auto) 2.0 [place] # (Auto) 0.9 Eos # (Auto) 0.2 Baso # (Auto) 0.0 Abs Immat Gran (auto) 0.06 H Absolute Neuts (auto) 13.2 H Absolute Nucleated RBC 0.000 Nucleated RBC % (auto) 0.0 ESR 29 H Anion Gap 17 Estim Creat Clear Calc 27.6 Estimated GFR 29 Random Glucose 160 H Lactic Acid Lactic Acid F/U @ 2Hr Calcium 9.7 Magnesium 1.7 Total Bilirubin 0.3 AST 21 ALT 20 Alkaline Phosphatase 42 Troponin I High Sens C-Reactive Protein 2.02 H Total Protein 6.9 Albumin 3.9 Lipase 15 Urine Color Urine Appearance Urine pH Ur Specific [place] Urine Protein Urine Glucose (UA) Urine Ketones Urine Blood Urine Nitrite Ur Leukocyte Esterase Urine RBC Urine WBC Ur Squamous Epith Cells Uric Acid Crystals Urine Bacteria Urine Yeast 11/23/21 11/24/21 11/24/21 23:10 01:35 01:40 MCV MCH MCHC RDW Plt Count MPV Immature Gran % (Auto) Neut % (Auto) Lymph % (Auto) [place] % (Auto) Eos % (Auto) Baso % (Auto) Lymph # (Auto) [place] # (Auto) Eos # (Auto) Baso # (Auto) Abs Immat Gran (auto) Absolute Neuts (auto) Absolute Nucleated RBC Nucleated RBC % (auto) ESR Anion Gap 15 Estim Creat Clear Calc 31.2 Estimated GFR 33 Random Glucose 161 H Lactic Acid 2.1 H* Lactic Acid F/U @ 2Hr 2.0 Calcium 8.3 L D Magnesium Total Bilirubin AST ALT Alkaline Phosphatase Troponin I High Sens C-Reactive Protein Total Protein Albumin Lipase Urine Color Urine Appearance Urine pH Ur Specific [place] Urine Protein Urine Glucose (UA) Urine Ketones Urine Blood Urine Nitrite Ur Leukocyte Esterase Urine RBC Urine WBC Ur Squamous Epith Cells Uric Acid Crystals Urine Bacteria Urine Yeast 11/24/21 11/24/21 03:03 06:07 MCV MCH MCHC RDW Plt Count MPV Immature Gran % (Auto) Neut % (Auto) Lymph % (Auto) [place] % (Auto) Eos % (Auto) Baso % (Auto) Lymph # (Auto) [place] # (Auto) Eos # (Auto) Baso # (Auto) Abs Immat Gran (auto) Absolute Neuts (auto) Absolute Nucleated RBC Nucleated RBC % (auto) ESR Anion Gap Estim Creat Clear Calc Estimated GFR Random Glucose Lactic Acid Lactic Acid F/U @ 2Hr Calcium Magnesium Total Bilirubin AST ALT Alkaline Phosphatase Troponin I High Sens < 3.5 C-Reactive Protein Total Protein Albumin Lipase Urine Color YELLOW Urine Appearance HAZY Urine pH 5.5 Ur Specific [place] 1.025 Urine Protein NEG Urine Glucose (UA) NEG Urine Ketones NEG Urine Blood 2+ H Urine Nitrite NEG Ur Leukocyte Esterase NEG Urine RBC 0-2 Urine WBC 0-2 Ur Squamous Epith Cells 3+ Uric Acid Crystals 2+ Urine Bacteria 1+ Urine Yeast 1+ Imaging Radiologist's Impressions: Impressions KUB X-Ray 11/23/21 20:13 IMPRESSION: No evidence of bowel obstruction Abdomen/Pelvis CT 11/23/21 22:13 IMPRESSION: Interval development of multiple inflamed loops of small bowel within the midabdomen with associated mesenteric edema and fluid. No evidence of bowel obstruction. Infectious and ischemic enteritis are considered. Lack of intravenous contrast limits assessment of the latter. These correlate with lactate levels and consider repeating the scan with angiographic and portal venous phase imaging to exclude mesenteric arterial and venous occlusion, as clinically indicated. Abdomen/Pelvis CTA 11/24/21 05:40 IMPRESSION: 1. No vascular abnormality to suggest mesenteric ischemia. 2. Persistent inflammatory change of the fat in the region of small bowel wall thickening in the left anterior abdomen. The wall thickening is less prominent than on the recent prior study. This is suggestive of enteritis, likely infectious or inflammatory. Fleischner guidelines were followed. Assessment and Plan (1) Enteritis: Status: Acute (2) Diabetes: Status: Acute Plan 71-year-old female patient with past medical history significant for hypertension, hyperlipidemia, diabetes mellitus, GERD, osteoarthritis, CKD3, osteo chondroma left femur history of COPD on 2 L of oxygen, history of obstruc tive sleep apnea on CPAP. She presented to ED with abdominal pain and found to have enteritis. Enteritis-Treat with IV Abx (Flagyl, Ceftriaxone) and monitor for response liquid diet and advance as tolerated, and if not improving consider GI consult or surgery consult CKD3.? Creatinine Near baseline Avoid nephrotoxic agents Chronic respiratory failure secondary to COPD--no exacerbation Continue 2 L supplemental oxygen Diabetes will convert home dose of Levimir to Lantus hold metformin SSI, POCs, ADA diet Hypertension Continue lisinopril and amlodipine Mood Continue home medications, wellbutrin, atarax Neuropathy Continue gabapentin HLD continue HLD RLS continue ropinerole, gabapentin Morbid obesity.? Discussed the importance of weight management as this may contribute to worsenin g of other comorbidities. DVT prophylaxis, heparin Admission was spent at least 2 midnight to administer IV antibiotics for enteritis and monitor response. Quality Stroke Does the patient have a stroke diagnosis?: No VTE Prior VTE?: No VTE Risk Level:: Medical - moderate - high VTE Device Contraindication: Treatment Not Indicated VTE Drug Contraindication: N/A - Med Ordered
[2021-11-24 08:09] VITALS: BP 137/57; PULSE 91; RESP 16; TEMP 36.6; O2SAT 99
--- NOTE | 2021-11-24 09:11 | PHA.MEDREC ---
Pharmacy Consult ? Medication Reconciliation Pharmacy has completed the medication reconciliation.
[2021-11-24] MEDS: Morphine Sulfate 2 MG/ML CARTRIDGE IVPUSH ×3 (09:34→21:49)
[2021-11-24 14:00] VITALS: BP 122/49; PULSE 91; RESP 18; TEMP 36.6; O2SAT 94
[2021-11-24 14:26] LABS: Glucose, Whole Blood 118 mg/dL (60-115)
[2021-11-24 16:55] VITALS: BP 126/80; PULSE 71; RESP 16
[2021-11-24 18:21] LABS: Glucose, Whole Blood 116 mg/dL (60-115)
[2021-11-24 18:33] LABS: COVID-19 Test Negative (Negative); IDNOW Serial# 55D5AD1C
[2021-11-24 18:39] LABS: Influenza A Negative (Negative); Influenza B2 Negative (Negative)
[2021-11-24] MEDS: rOPINIRole HCL 2 MG TABLET PO (22:30)
[2021-11-24] MEDS: Gabapentin 300 MG CAPSULE 900 MG PO (22:30)
[2021-11-24] MEDS: traZODone HCL 100 MG TABLET 200 MG PO (22:31)
[2021-11-24 22:41] LABS: Glucose, Whole Blood 155 mg/dL (60-115)
[2021-11-24 23:42] VITALS: BP 113/46; PULSE 96; RESP 16; TEMP 37.2; O2SAT 97
[2021-11-25] MEDS: 0.9 % Sodium Chloride Flush 3 ML SYRINGE IVFLUSH ×3 (00:17→17:32)
[2021-11-25 02:13] VITALS: BMI 29.7
[2021-11-25 03:02] VITALS: BP 137/50; PULSE 84; RESP 16; TEMP 36.4; O2SAT 98
[2021-11-25] MEDS: Morphine Sulfate 2 MG/ML CARTRIDGE IVPUSH ×4 (04:46→22:58)
[2021-11-25 07:44] VITALS: BP 108/55; PULSE 84; RESP 18; TEMP 36.1; O2SAT 99
[2021-11-25] MEDS: cefTRIAXone sodium 1 GM in 0.9 % Sodium Chloride 50 ML IV (07:54)
[2021-11-25 07:58] LABS: Glucose, Whole Blood 162 mg/dL (60-115)
[2021-11-25] MEDS: metroNIDAZOLE/NS 500 MG/100 ML PIGGYBACK 100 MG IV ×2 (08:45→17:32)
[2021-11-25 08:59] LABS: Hematocrit 32.7 % (37.0-47.0); Hemoglobin 10.4 g/dl (12.0-16.0); Mean Corpuscular HGB Conc 31.8 g/dl (31.0-35.0); Mean Corpuscular Hemoglobin 26.9 pg (27.0-33.0); Mean Corpuscular Volume 84.7 fL (80.0-98.0); Mean Platelet Volume 11.7 fL (9.4-12.3); Platelet Count 191 X10*3/uL (160-400); Red Blood Count 3.86 X10*6/uL (4.20-5.50); Red Cell Distribution Width 13.4 % (11.0-16.0); White Blood Count 9.2 X10*3/uL (4.8-10.8)
[2021-11-25 09:22] LABS: Platelet Count 230 X10*3/uL (160-400)
--- NOTE | 2021-11-25 09:32 | HO.PM.IMPN ---
Subjective Subjective Date of Service: 11/25/21 Interval History: Follow-up on enteritis Interval history: Still has some pain, but overall better. No nausea vomiting Review of Systems Gen: no fever Resp: no sob, no cough CV: no chest, no OBRIEN, no leg edema GI: No n/v, + abd pain Neuro: No confusion Physical Exam Vital Signs: Vital Signs: Last Vital Signs Temp 97.0 F 11/25/21 07:44 Pulse 84 11/25/21 07:44 Resp 18 11/25/21 07:44 BP 108/55 L 11/25/21 07:44 Pulse Ox 99 11/25/21 07:44 BMI result Body Mass Index 29.7 Const: Other: Constitutional: Alert, in no distress, overweight. Mental Status: Oriented to person, place and time. Respiratory: Clear to auscultation. No wheezing, rales or rhonchi. Cardiovascular: S1 S2 regular. No murmurs, rubs or gallops. Gastrointestinal: Abdomen soft, mid epigastric tenderness, non-distended. Normal bowel sounds.? Neurologic: Cranial nerves II-XII grossly intact. No focal neurological deficits. Moves all extremities spontaneously.? Skin: No rashes or lesions.? Psychiatric: Normal mood and affect? Objective Data Active Medications Dextrose (Dextrose 50 % 25 Gm/50 Ml Syringe) 25 gm IVPUSH Q15M PRN; Protocol PRN Reason: per Hypoglycemia Standing Ord. Gabapentin (Gabapentin 300 Mg Capsule) 900 mg PO BEDTIME [facility] Last Admin: 11/24/21 22:30 Dose: 900 mg Documented by: ANURAG Glucose (Glucose Gel 15 Gm Gel..Gram.) 15 gm PO Q15M PRN; Protocol PRN Reason: per Hypoglycemia Standing Ord. Heparin Sodium (Porcine) (Heparin Sodium,Porcine 5,000 Unit/Ml Vial) 5,000 unit SUBCUT Q12H [facility] Ceftriaxone Sodium 1 gm/ (Sodium Chloride) 50 mls @ 100 mls/hr IV Q24H [facility] Last Admin: 11/25/21 07:54 Dose: 100 mls/hr Documented by: AKIKO Metronidazole (Flagyl) 500 mg in 100 mls @ 100 mls/hr IV Q8H [facility] Last Admin: 11/25/21 08:45 Dose: 100 mls/hr Documented by: AKIKO Insulin Human Lispro (Insulin Lispro 100 Unit/Ml 3 Ml Vial) 0 unit SUBCUT QIDACHS [facility]; Protocol Last Admin: 11/24/21 22:36 Dose: Not Given Documented by: ANURAG Non-Admin Reason: Patient Refused Morphine Sulfate (Morphine Sulfate 2 Mg/Ml Cartridge) 2 mg IVPUSH Q4H PRN; Protocol PRN Reason: Pain, Severe (Pain Scale 7-10) Last Admin: 11/25/21 08:40 Dose: 2 mg Documented by: AKIKO Ropinirole HCl (Ropinirole Hcl 2 Mg Tablet) 2 mg PO BID [facility] Last Admin: 11/24/21 22:30 Dose: 2 mg Documented by: ANURAG Sodium Chloride (0.9 % Sodium Chloride Flush 3 Ml Syringe) 3 ml IVFLUSH QSHIFT [facility] Last Admin: 11/25/21 07:54 Dose: 3 ml Documented by: AKIKO Trazodone HCl (Trazodone Hcl 100 Mg Tablet) 200 mg PO BEDTIME [facility] Last Admin: 11/24/21 22:31 Dose: 200 mg Documented by: ANURAG Labs CBC & Chem 7: 11/25/21 08:43 11/24/21 01:35 Labs: Laboratory Results - last 24 hr 11/23/21 11/24/21 11/24/21 20:59 14:17 18:11 MCV MCH MCHC RDW Plt Count 230 MPV Absolute Nucleated RBC Nucleated RBC % (auto) POC Glucose 118 H COVID-19 (JESSIKA) COVID-19 Clin Com Influenza Type A (DONY) Negative Influenza Type B (DONY) Negative Influenza A & B Note See Note 11/24/21 11/24/21 11/24/21 18:11 18:11 22:36 MCV MCH MCHC RDW Plt Count MPV Absolute Nucleated RBC Nucleated RBC % (auto) POC Glucose 116 H 155 H COVID-19 (JESSIKA) Negative COVID-19 Clin Com See Note Influenza Type A (DONY) Influenza Type B (DONY) Influenza A & B Note 11/25/21 11/25/21 07:47 08:43 MCV 84.7 MCH 26.9 L MCHC 31.8 RDW 13.4 Plt Count 191 MPV 11.7 Absolute Nucleated RBC 0.000 Nucleated RBC % (auto) 0.0 POC Glucose 162 H COVID-19 (JESSIKA) COVID-19 Clin Com Influenza Type A (DONY) Influenza Type B (DONY) Influenza A & B Note Microbiology Microbiology Results: Microbiology 11/23/21 23:10 Blood Culture - Preliminary Blood - Venous No growth after 24 hours. 11/23/21 23:10 Blood Culture - Preliminary Blood - Venous No growth after 24 hours. Assessment and Plan (1) Enteritis: Status: Acute (2) Diabetes: Status: Acute Plan 71-year-old female patient with past medical history significant for hypertension, hyperlipidemia, diabetes mellitus, GERD, osteoarthritis, CKD3, osteo chondroma left femur history of COPD on 2 L of oxygen, history of obstructive sleep apnea on CPAP. She presented to ED with abdominal pain and found to have enteritis. Enteritis-Treat with IV Abx (Flagyl, Ceftriaxone) and monitor for response liquid diet and advance as tolerated. GI consult CKD3.? Creatinine Near baseline Avoid nephrotoxic agents Chronic respiratory failure secondary to COPD--no exacerbation Continue 2 L supplemental oxygen Diabetes will convert home dose of Levimir to Lantus hold metformin SSI, POCs, ADA diet Hypertension Continue lisinopril and amlodipine Mood Continue home medications, wellbutrin, atarax Neuropathy Continue gabapentin HLD continue HLD RLS continue ropinerole, gabapentin Morbid obesity.? Discussed the importance of weight management as this may contribute to worsening of other comorbidities. DVT prophylaxis, heparin Inaptient need: Ongoing management with IV Abx for suspected bacterial enteritis, peristent pain with need for IV pain medication and diet being slowly advanced Quality Stroke Does the patient have a stroke diagnosis?: No VTE Prior VTE?: No VTE Risk Level:: Medical - moderate - high VTE Device Contraindication: Treatment Not Indicated VTE Drug Contraindication: N/A - Med Ordered
[2021-11-25 11:17] VITALS: BP 130/59; PULSE 88; RESP 18; TEMP 36.9; O2SAT 95
[2021-11-25 11:42] LABS: Glucose, Whole Blood 159 mg/dL (60-115)
[2021-11-25] MEDS: Insulin Lispro 100 UNIT/ML 3 ML VIAL SUBCUT (12:22)
[2021-11-25] MEDS: Heparin Sodium,Porcine 5,000 UNIT/ML VIAL 5000 UNIT SUBCUT ×2 (12:22→21:00)
[2021-11-25] MEDS: rOPINIRole HCL 2 MG TABLET PO ×2 (12:22→20:59)
--- NOTE | 2021-11-25 14:27 | PC.NURSE ---
Shyann reporting abdominal pain with clear liquids. Poor PO intake. MD notified via text.
[2021-11-25 15:09] VITALS: BP 149/63; PULSE 94; RESP 18; TEMP 37.1; O2SAT 92
--- NOTE | 2021-11-25 16:09 | PM.EVENT ---
Event Note Date of Service: 11/25/21 Event Note: GI consult dictated Enteritis on CT, currently on abx. Agree with present rx, if worsens consider repeat CT and surgery eval.
--- NOTE | 2021-11-25 16:16 | MHC.CM.PN ---
IMM 11/25/21, CM MET W/PT WHO REPORTS SHE LIVES W//HER , PT REPORTS SHE HAS TWO WALKERS, NR RAILS, PRN HOME O2 W/LINCARE AND DAILY [employer] FOR ASSISTANCE W/ADLS'SHOWERING AND TWICE WEEKLY [employer] DOES [employer] LO[employer], PT REPORTS SHE IS FULLY VACC W/PFIZER, HCP VERIFIES SON CRISTINA AND IS ON FILE AND PCP VERFIED IVAN DUMONT, PT REPORTS SHE DOES NOT WANT STR HOWEVER WOULD ACCEPT A VNA IF RECOMMENDED. D/C PLAN HOME W/RESUMP OF DAILY [employer] VS HOME W/[employer]ER AND NEW VNA, PT'S SON CRISTINA FOR TRANSPORT
[2021-11-25 16:18] LABS: Glucose, Whole Blood 134 mg/dL (60-115)
[2021-11-25] MEDS: 0.9 % Sodium Chloride 1,000 ML 100 ML IVCONT (17:32)
[2021-11-25 19:15] VITALS: BP 139/64; PULSE 86; RESP 18; TEMP 36.7; O2SAT 94
[2021-11-25] MEDS: ondansetron HCL 4 MG/2 ML VIAL IVPUSH (19:38)
[2021-11-25 20:26] LABS: Glucose, Whole Blood 133 mg/dL (60-115)
[2021-11-25] MEDS: traZODone HCL 100 MG TABLET 200 MG PO (20:58)
[2021-11-25] MEDS: Gabapentin 300 MG CAPSULE 900 MG PO (20:59)
[2021-11-25 23:53] VITALS: BP 137/63; PULSE 90; RESP 17; TEMP 36.7; O2SAT 92
[2021-11-26] MEDS: metroNIDAZOLE/NS 500 MG/100 ML PIGGYBACK 100 MG IV ×4 (00:29→23:16)
--- NOTE | 2021-11-26 02:58 | CONS_ITS ---
DATE OF SERVICE: 11/25/2021 REFERRING PHYSICIAN: Rajat Mendoza MD REFERRING PROVIDER: Rajat Mendoza MD. REASON FOR CONSULTATION: Enteritis. HISTORY OF PRESENT ILLNESS: The patient is a pleasant 71-year-old woman, who was admitted to the hospital after presenting to the emergency room with complaints of abdominal pain. She was initially seen on November 22 with complaints of abdominal pain with associated constipation. She underwent CT scanning, which is reviewed. She was prescribed laxatives and took these, which cause some diarrhea. Subsequently, she returned to the emergency room with continued complaints of abdominal pain. CT scanning was again obtained, which raised a question of ischemia and a followup CT scan with angiography was interpreted as showing persistent inflammatory change in the fat in the region of the small bowel wall thickening suggestive of enteritis, possibly infectious or inflammatory. The patient was admitted to the hospital and has been started on antibiotics. She has had no diarrhea since admission. PAST MEDICAL HISTORY: 1. Hypertension. 2. Hyperlipidemia. 3. Diabetes. 4. Gastroesophageal reflux disease. 5. Osteoarthritis. 6. Chronic kidney disease. 7. COPD. 8. Sleep apnea. 9. Elevated BMI. PAST SURGICAL HISTORY: Includes exploratory laparotomy, arthroscopy, cholecystectomy, hysterectomy, sigmoid resection for diverticular disease, cataract surgery, and colonoscopy on October 14, 2018 showing diverticulosis and multiple polyps. CURRENT MEDICATIONS: Her current medication list is reviewed in the chart. ALLERGIES: MULTIPLE MEDICATION ALLERGIES ARE REVIEWED. FAMILY HISTORY: This is reviewed with the patient and is noncontributory. SOCIAL HISTORY: There is no current tobacco, alcohol, or substance abuse. REVIEW OF SYSTEMS: SKIN: No pruritus. HEENT: Negative. CARDIOPULMONARY: She denies shortness of breath or chest pain. GASTROINTESTINAL: As above. GENITOURINARY: Negative. NEUROPSYCHIATRIC: Negative. PHYSICAL EXAMINATION: GENERAL: Shows a pleasant female, lying comfortably in bed. VITAL SIGNS: Reviewed in electronic medical record and are stable. SKIN: Anicteric. HEENT: Shows no scleral icterus. NECK: Without lymphadenopathy or thyromegaly. LUNGS: Clear. HEART: Shows a regular rate and rhythm. S1, S2. No murmur. ABDOMEN: Soft without focal masses or tenderness. Bowel sounds are present. No organomegaly is noted. There is some mild diffuse tenderness to palpation. EXTREMITIES: Without edema. LABORATORY DATA: Shows a white blood cell count of 6.6, hematocrit 32. Chemistries are reviewed. Review of her CT scan shows findings as noted above. IMPRESSION: Enteritis, possible causes for this include an infectious gastroenteritis. Ischemia seems to be less likely based on the CT scan findings. She has also had multiple abdominal surgeries, but this does not appear to be consistent with a bowel obstruction. I agree with treating her with IV antibiotics and following her clinically. If she has worsening of her symptoms, I would recommend surgical consultation and possible repeat CAT scanning. Thanks for asking me to see her. I will follow her in the hospital with you. MD HOSEA Harrison/[facility] / [phone]
[2021-11-26] MEDS: Morphine Sulfate 2 MG/ML CARTRIDGE IVPUSH ×4 (03:02→23:16)
[2021-11-26] MEDS: 0.9 % Sodium Chloride 1,000 ML 100 ML IVCONT ×3 (03:03→21:42)
[2021-11-26 03:55] VITALS: BP 112/57; PULSE 75; RESP 16; TEMP 36.4; O2SAT 98
[2021-11-26 07:22] VITALS: BP 131/57; PULSE 88; RESP 19; TEMP 36.1; O2SAT 99
[2021-11-26 07:33] LABS: Glucose, Whole Blood 107 mg/dL (60-115)
[2021-11-26] MEDS: rOPINIRole HCL 2 MG TABLET PO ×2 (09:58→21:41)
[2021-11-26] MEDS: Heparin Sodium,Porcine 5,000 UNIT/ML VIAL 5000 UNIT SUBCUT ×2 (09:58→21:41)
[2021-11-26] MEDS: cefTRIAXone sodium 1 GM in 0.9 % Sodium Chloride 50 ML IV (09:58)
[2021-11-26 11:43] VITALS: BP 122/53; PULSE 77; RESP 20; TEMP 36.3; O2SAT 98
[2021-11-26 11:44] LABS: Glucose, Whole Blood 97 mg/dL (60-115)
[2021-11-26] MEDS: ondansetron HCL 4 MG/2 ML VIAL IVPUSH (14:45)
[2021-11-26 15:13] VITALS: BP 168/64; PULSE 93; RESP 18; TEMP 36.7; O2SAT 96
--- NOTE | 2021-11-26 15:41 | MHC.CM.PN ---
NOT READY FOR DISCHARGE PLAN IS FOR SCAN. PATIENT MAY NEED VNA UPON DISCHARGE AND CASE MANAGEMENT WILL DISCUSS PREFERENCES WITH HER DC TIME NEARS
--- NOTE | 2021-11-26 15:47 | P.PNIM_ITS ---
Subjective Subjective Date of Service: 11/26/21 Interval History: enteritis Review of Systems Abdominal pain is similar to yesterday Denies any nausea vomiting She says that the pain is still persistent and need pain medications Physical Exam Vital Signs: Vital Signs: Last Vital Signs Temp 98.0 F 11/26/21 15:13 Pulse 93 11/26/21 15:13 Resp 18 11/26/21 15:13 BP 168/64 H 11/26/21 15:13 Pulse Ox 96 11/26/21 15:13 BMI result Body Mass Index 29.7 Appearance: Alert.? Oriented X3.? cvs: rrr, [id number] , no murmur res: clear to auscultation ,no rhonchii or wheezing abd: no rebound or guarding ,still has midabdomen pain persistent, bs present. ext pulses present , no cyanosis . neuro: axo3 , nonfocal. Objective Data Active Medications Dextrose (Dextrose 50 % 25 Gm/50 Ml Syringe) 25 gm IVPUSH Q15M PRN; Protocol PRN Reason: per Hypoglycemia Standing Ord. Gabapentin (Gabapentin 300 Mg Capsule) 900 mg PO BEDTIME [facility] Last Admin: 11/25/21 20:59 Dose: 900 mg Documented by: CRISTINO Glucose (Glucose Gel 15 Gm Gel..Gram.) 15 gm PO Q15M PRN; Protocol PRN Reason: per Hypoglycemia Standing Ord. Heparin Sodium (Porcine) (Heparin Sodium,Porcine 5,000 Unit/Ml Vial) 5,000 unit SUBCUT Q12H [facility] Last Admin: 11/26/21 09:58 Dose: 5,000 unit Documented by: TRINIDAD Ceftriaxone Sodium 1 gm/ (Sodium Chloride) 50 mls @ 100 mls/hr IV Q24H [facility] Last Infusion: 11/26/21 10:33 Dose: 0 mls/hr Documented by: TRINIDAD Metronidazole (Flagyl) 500 mg in 100 mls @ 100 mls/hr IV Q8H [facility] Last Admin: 11/26/21 14:46 Dose: 100 mls/hr Documented by: TRINIDAD Sodium Chloride (Ns) 1,000 mls @ 100 mls/hr IVCONT .Q10H [facility] Last Infusion: 11/26/21 13:06 Dose: 0 mls/hr Documented by: TRINIDAD Insulin Human Lispro (Insulin Lispro 100 Unit/Ml 3 Ml Vial) 0 unit SUBCUT QIDACHS [facility]; Protocol Last Admin: 11/26/21 12:13 Dose: Not Given Documented by: TRINIDAD Non-Admin Reason: No Insulin Coverage Morphine Sulfate (Morphine Sulfate 2 Mg/Ml Cartridge) 2 mg IVPUSH Q4H PRN; Protocol PRN Reason: Pain, Severe (Pain Scale 7-10) Last Admin: 11/26/21 10:44 Dose: 2 mg Documented by: TRINIDAD Ondansetron HCl (Ondansetron Hcl 4 Mg/2 Ml Vial) 4 mg IVPUSH Q8H PRN PRN Reason: Nausea and Vomiting Last Admin: 11/26/21 14:45 Dose: 4 mg Documented by: TRINIDAD Ropinirole HCl (Ropinirole Hcl 2 Mg Tablet) 2 mg PO BID [facility] Last Admin: 11/26/21 09:58 Dose: 2 mg Documented by: TRINIDAD Sodium Chloride (0.9 % Sodium Chloride Flush 3 Ml Syringe) 3 ml IVFLUSH QSHIFT [facility] Last Admin: 11/26/21 14:46 Dose: Not Given Documented by: TRINIDAD Non-Admin Reason: IV Running Trazodone HCl (Trazodone Hcl 100 Mg Tablet) 200 mg PO BEDTIME [facility] Last Admin: 11/25/21 20:58 Dose: 200 mg Documented by: CRISTIANOIT Labs CBC & Chem 7: 11/25/21 08:43 11/24/21 01:35 Labs: Laboratory Results - last 24 hr 11/25/21 11/25/21 11/26/21 15:07 19:11 07:11 POC Glucose 134 H 133 H 107 11/26/21 11:07 POC Glucose 97 Microbiology Microbiology Results: Microbiology 11/23/21 23:10 Blood Culture - Preliminary Blood - Venous No growth after 48 hours. 11/23/21 23:10 Blood Culture - Preliminary Blood - Venous No growth after 48 hours. Assessment and Plan (1) Enteritis: Status: Acute Plan 71-year-old female patient with past medical history significant for hypertension, hyperlipidemia, diabetes mellitus, GERD, osteoarthritis, CKD3, osteo chondroma left femur history of COPD on 2 L of oxygen, history of obstructive sleep apnea on CPAP. She presented to ED with abdominal pain and found to have enteritis. Enteritis- abd ct: 1. No vascular abnormality to suggest mesenteric ischemia. 2. Persistent inflammatory change of the fat in the region of small bowel wall thickening in the left anterior abdomen. The wall thickening is less prominent than on the recent prior study. This is suggestive of enteritis, likely infectious or inflammatory Treat with IV Abx (Flagyl, Ceftriaxone) GI consult-noted -persistent abomen pain,continue iv antibiotics,will try trial of clear liquid diet added surgery eval-since persistenet pain . CKD3.? Creatinine Near baseline Avoid nephrotoxic agents Chronic respiratory failure secondary to COPD--no exacerbation Continue 2 L supplemental oxygen Diabetes: fs running 97-130 range will convert home dose of Levimir to Lantus hold metformin SSI, POCs, ADA diet Hypertension Continue lisinopril and amlodipine Mood Continue home medications, wellbutrin, atarax Neuropathy Continue gabapentin HLD continue HLD RLS continue ropinerole, gabapentin Morbid obesity.? Discussed the importance of weight management as this may contribute to worsening of other comorbidities. DVT prophylaxis, heparin Inaptient need: Ongoing management with IV Abx for suspected bacterial enteritis, peristent pain with need for IV pain medication and diet clear liquid -if tolerate will advance. Quality Stroke Does the patient have a stroke diagnosis?: No VTE Prior VTE?: No VTE Risk Level:: Medical - moderate - high VTE Device Contraindication: Treatment Not Indicated VTE Drug Contraindication: N/A - Med Ordered
[2021-11-26 16:10] LABS: Glucose, Whole Blood 117 mg/dL (60-115)
--- NOTE | 2021-11-26 16:36 | PM.CNGS ---
History of Present Illness Consult details Consult date: 11/26/21 Reason for consult: abdominal pain Requesting physician: Russell Diaz Narrative: 71-year-old female patient with history of enteritis, diabetes, morbid obesity and chronic abdominal pain presenting with complaints of persistent abdominal pain mainly in the left upper quadrant. She has undergone multiple abdominal procedures including sigmoid resection for diverticulitis, appendectomy, cholecystectomy, exploratory laparotomy for small-bowel obstruction with lysis of adhesions. The pain is usually associated with constipation but she is reporting passing her bowels after taking stool softeners. She returns to the emergency department on 11/24/2021 because of increased abdominal pain. Initial will evaluation with CT abdomen and pelvis without contrast raised the suspicion of mesenteric ischemia however subsequent repeat CT with contrast revealed no evidence of mesenteric ischemia. There is inflammation of a loop of small bowel in the left upper quadrant suggestive of enteritis. She was placed on Zosyn. She reports anorexia and continues to move her bowels. Review of Systems Constitutional: Constitutional: Reports chills (she says she usually gets chills whenever she has abdominal pain) and Denies fever(s) Cardiovascular: Cardiovascular: Denies chest pain, Reports dyspnea and Reports dyspnea on exertion Respiratory: Respiratory: Denies cough, Reports dyspnea and Reports dyspnea on exertion Gastrointestinal: Gastrointestinal: Denies hematochezia and Denies change in bowel habits Genitourinary: Genitourinary: Denies hematuria Musculoskeletal: Musculoskeletal: Reports back pain, Reports arthralgias and Reports limited range of motion Neurologic: Denies focal weakness and Denies convulsions Psychiatric: Psychiatric: Reports depression and Denies mood swings [facility] Past Medical History Medical History Allergic rhinitis Anemia Arthritis CKD (chronic kidney disease) Constipation due to opioid therapy COPD exacerbation CPAP (continuous positive airway pressure) dependence Diabetes Elevated cholesterol GERD (gastroesophageal reflux disease) History of adrenal adenoma History of diverticulitis History of restless legs syndrome Hx SBO Hyperlipidemia Hypoxemia Morbid obesity Obesity (BMI 30-39.9) ALDO (obstructive sleep apnea) Osteoarthritis of left knee Osteochondroma of left femur Urinary tract infection Family History Family History Father HTN (hypertension) Diabetes mellitus Mother HTN (hypertension) Liver cancer Surgical History Surgical History H/O colonoscopy H/O excision of mass H/O exploratory laparotomy History of appendectomy History of arthroscopy of left knee History of cholecystectomy History of hysterectomy History of oophorectomy History of partial colectomy History of surgery Hx of cataract extraction Social History Social History 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: Family 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 Other:: EX Housing: House Are you a primary cattle care worker to a significant other at home: No Do you presently have visiting nurse or other home services: No Alcohol intake: never Patient Tobacco Use Status: Never used Tobacco Smoked in Last 30 Days: No e-Cigarette/Vaping Use: Never Used Second Hand Smoke Exposure: No Use of substances other than those prescribed or required for medical reasons: No Currently Displaying Signs/Symptoms of Drug Intoxication Withdrawal: No Any prior treatment program specific to substance use: No Have you been hit, kicked, punched, or otherwise hurt by someone within the past year? If so, by whom?: No Do you feel safe in your current relationship?: No Current Relationship Is there a partner from a previous relationship who is making you feel unsafe now?: No Are you made to feel afraid or neglected: No Advance Directives: Yes Advance Directives Information Provided: No Advance Directives on File: No Advance Directives Date on File: 07/08/21 Do you have thoughts of harming others: None Do you have a plan to hurt others: No Plan Recently lost weight without trying: No Eating poorly because of decreased appetite: No Nutrition Risks: No Nutritional Risk Patient : No : No Poor oral hygiene: No service: No Current occupational status: retired Cognitive needs: No Hearing needs: No Vision needs: No Meds Allergies Allergy/AdvReac Type Severity Reaction Status Date / Time adhesive tape [ADHESIVE TAPE] Allergy Intermediate RASH Verified 11/18/21 14:36 trimethobenzamide Allergy Mild NAUSEA Verified 11/18/21 14:36 [From TIGAN] environmental Allergy Intermediate Nasal Uncoded 11/18/21 14:36 congestion Active Medications: Current Medications Dextrose (Dextrose 50 % 25 Gm/50 Ml Syringe) 25 gm IVPUSH Q15M PRN; Protocol PRN Reason: per Hypoglycemia Standing Ord. Gabapentin (Gabapentin 300 Mg Capsule) 900 mg PO BEDTIME [facility]ANGEL Last Admin: 11/25/21 20:59 Dose: 900 mg Documented by: Glucose (Glucose Gel 15 Gm Gel..Gram.) 15 gm PO Q15M PRN; Protocol PRN Reason: per Hypoglycemia Standing Ord. Heparin Sodium (Porcine) (Heparin Sodium,Porcine 5,000 Unit/Ml Vial) 5,000 unit SUBCUT Q12H [facility] Last Admin: 11/26/21 09:58 Dose: 5,000 unit Documented by: Ceftriaxone Sodium 1 gm/ (Sodium Chloride) 50 mls @ 100 mls/hr IV Q24H [facility] Last Infusion: 11/26/21 10:33 Dose: Infused Documented by: Metronidazole (Flagyl) 500 mg in 100 mls @ 100 mls/hr IV Q8H [facility] Last Infusion: 11/26/21 16:24 Dose: Infused Documented by: Sodium Chloride (Ns) 1,000 mls @ 100 mls/hr IVCONT .Q10H [facility] Last Infusion: 11/26/21 13:06 Dose: Infused Documented by: Insulin Human Lispro (Insulin Lispro 100 Unit/Ml 3 Ml Vial) 0 unit SUBCUT QIDACHS [facility]; Protocol Last Admin: 11/26/21 16:26 Dose: Not Given Documented by: Morphine Sulfate (Morphine Sulfate 2 Mg/Ml Cartridge) 2 mg IVPUSH Q4H PRN; Protocol PRN Reason: Pain, Severe (Pain Scale 7-10) Last Admin: 11/26/21 10:44 Dose: 2 mg Documented by: Ondansetron HCl (Ondansetron Hcl 4 Mg/2 Ml Vial) 4 mg IVPUSH Q8H PRN PRN Reason: Nausea and Vomiting Last Admin: 11/26/21 14:45 Dose: 4 mg Documented by: Ropinirole HCl (Ropinirole Hcl 2 Mg Tablet) 2 mg PO BID [facility] Last Admin: 11/26/21 09:58 Dose: 2 mg Documented by: Sodium Chloride (0.9 % Sodium Chloride Flush 3 Ml Syringe) 3 ml IVFLUSH QSHIFT [facility] Last Admin: 11/26/21 14:46 Dose: Not Given Documented by: Trazodone HCl (Trazodone Hcl 100 Mg Tablet) 200 mg PO BEDTIME [facility] Last Admin: 11/25/21 20:58 Dose: 200 mg Documented by: Home Medications Medication Instructions Recorded Confirmed Last Taken Type bupropion HCl 150 mg 24 hr tablet, 150 mg PO DAILY 04/25/20 11/24/21 11/22/21 History extended release oxygen-air delivery systems #1 04/25/20 11/24/21 11/22/21 History gabapentin 300 mg capsule 900 mg PO BEDTIME cap 05/13/21 11/24/21 11/22/21 History gabapentin 300 mg capsule 300 mg PO DAILY 06/29/21 11/24/21 11/22/21 History hydroxyzine pamoate 25 mg capsule 1 cap PO BID 06/29/21 11/24/21 11/22/21 History blood sugar diagnostic (FreeStyle 08/09/21 11/24/21 11/22/21 History Lite Strips) insulin detemir U-100 100 unit/mL 20 unit SUBCUT DAILY 08/12/21 11/24/21 11/22/21 History (3 mL) subcutaneous pen (Levemir FlexTouch U-100 Insulin) aspirin 81 mg chewable tablet 81 mg PO DAILY 10/01/21 11/24/21 11/22/21 History lisinopril 5 mg tablet 1 tab PO DAILY 10/01/21 11/24/21 11/22/21 History trazodone 100 mg tablet 200 mg PO BEDTIME 10/01/21 11/24/21 11/22/21 History montelukast 10 mg tablet 10 mg PO DAILY 11/24/21 11/24/21 11/22/21 History Physical Exam Vital Signs: Vital Signs: Last Vital Signs Temp 98.0 F 11/26/21 15:13 Pulse 93 11/26/21 15:13 Resp 18 11/26/21 15:13 BP 168/64 H 11/26/21 15:13 Pulse Ox 96 11/26/21 15:13 BMI result Body Mass Index 29.7 Const: General: no acute distress Nutritional Appearance: obese Orientation/consciousness: patient oriented x3 Limitations: no limitations HEENT: Head: Yes normocephalic and Yes atraumatic Ears: hearing grossly normal bilaterally Resp: Other: On nasal O2, Effort & Inspection: uses accessory muscles Auscultation: no rales, no rhonchi and no wheezes GI: Inspection: Yes Abdominal panniculus present and Yes obesity Palpation (GI): Soft to palpation, Tenderness to palpation present (GI) in the LUQ and in the RUQ; Negative for Dalton's sign negative and with no rebound tenderness, no guarding and not rigid Auscultation: normal bowel sounds Rectal Exam - Female: deferred Skin: General skin exam: no rashes or lesions noted Neuro: General: patient oriented x3 Extrem: General: Yes normal to inspection Results Labs Result diagrams: 11/25/21 08:43 11/24/21 01:35 Labs: Abnormal lab results 11/25/21 11/26/21 Range/Units 19:11 15:18 POC Glucose 133 H 117 H (60-115) mg/dL Urine 11/24/21 Range/Units 03:03 Urine Color YELLOW Urine Appearance HAZY Urine pH 5.5 (5.0-8.0) Ur Specific Rawson 1.025 (1.005-1.025) Urine Protein NEG (NEG-TRACE) MG/DL Urine Glucose (UA) NEG (NEG) MG/DL All other labs normal. Assessment and Plan (1) Enteritis: Status: Acute Plan 71-year-old female patient with multiple medical problems and previous history of small-bowel obstruction presenting with complaints of abdominal pain in the upper abdomen. Patient was initially thought to have mesenteric ischemia however subsequent CT evaluation is negative for ischemia. She does have an area of enteritis mainly in the left upper quadrant this may be results of her previous surgical procedures. There is no evidence of obstruction at this time. There is some fluid surrounding the bowel. Agree with IV antibiotics and starting clear liquid diet. Patient was encouraged to get out of bed and ambulate. I will follow along during her hospitalization. Procedures Date of Service Date of Service: 11/26/21
[2021-11-26 20:00] VITALS: BP 128/57; PULSE 78; RESP 18; TEMP 36.9; O2SAT 98
[2021-11-26 20:47] LABS: Glucose, Whole Blood 124 mg/dL (60-115)
[2021-11-26] MEDS: Gabapentin 300 MG CAPSULE 900 MG PO (21:41)
[2021-11-26] MEDS: traZODone HCL 100 MG TABLET 200 MG PO (21:41)
[2021-11-26 23:23] VITALS: BP 147/56; PULSE 70; RESP 18; TEMP 36.1; O2SAT 98
[2021-11-27] VITALS (8 sets, daily range): BP systolic 126–151; BP diastolic 53–71; PULSE 74–95; RESP 16–18; TEMP 36.2–37.1; O2SAT 91–100
[2021-11-27 07:03] LABS: Anion Gap 11 (12-20); Blood Urea Nitrogen 8 mg/dL (9-16); Calcium 8.5 mg/dL (8.4-10.2); Carbon Dioxide 28 mmol/L (22-29); Chloride 106 mmol/L (96-108); Creatinine Clr Calc Pharmacy 36.4; Estimated Glomerular Filt Rate 43; Glucose Random 115 mg/dL (60-115); Potassium 3.5 mmol/L (3.3-5.1); Sodium 141 mmol/L (135-145)
[2021-11-27 07:52] LABS: Glucose, Whole Blood 114 mg/dL (60-115)
--- NOTE | 2021-11-27 08:37 | P.PNIM_ITS ---
Subjective Subjective Date of Service: 11/27/21 Interval History: enteritis Review of Systems Abdominal pain is minimally better than yesterday but still significant pain. She is taking little bit clear liquid diet today. Has diarrhea Physical Exam Vital Signs: Vital Signs: Last Vital Signs Temp 98.0 F 11/27/21 07:12 Pulse 81 11/27/21 07:12 Resp 18 11/27/21 07:12 BP 151/56 H 11/27/21 07:12 Pulse Ox 99 11/27/21 07:12 BMI result Body Mass Index 29.7 Appearance: Alert.? Oriented X3.? cvs: [id number], [id number] , no murmur res: Air entry fair, has mild wheezing. abd: no rebound or guarding ,still has midabdomen pain persistent, bs present. ext pulses present , no cyanosis . neuro: axo3 , nonfocal Objective Data Active Medications Dextrose (Dextrose 50 % 25 Gm/50 Ml Syringe) 25 gm IVPUSH Q15M PRN; Protocol PRN Reason: per Hypoglycemia Standing Ord. Gabapentin (Gabapentin 300 Mg Capsule) 900 mg PO BEDTIME [facility] Last Admin: 11/26/21 21:41 Dose: 900 mg Documented by: ERIKA Glucose (Glucose Gel 15 Gm Gel..Gram.) 15 gm PO Q15M PRN; Protocol PRN Reason: per Hypoglycemia Standing Ord. Heparin Sodium (Porcine) (Heparin Sodium,Porcine 5,000 Unit/Ml Vial) 5,000 unit SUBCUT Q12H [facility] Last Admin: 11/26/21 21:41 Dose: 5,000 unit Documented by: ERIKA Ceftriaxone Sodium 1 gm/ (Sodium Chloride) 50 mls @ 100 mls/hr IV Q24H [facility] Last Infusion: 11/26/21 10:33 Dose: 0 mls/hr Documented by: TRINIDAD Metronidazole (Flagyl) 500 mg in 100 mls @ 100 mls/hr IV Q8H [facility] Last Infusion: 11/27/21 00:23 Dose: 0 mls/hr Documented by: ERIKA Insulin Human Lispro (Insulin Lispro 100 Unit/Ml 3 Ml Vial) 0 unit SUBCUT QIDACHS [facility]; Protocol Last Admin: 11/26/21 21:41 Dose: Not Given Documented by: ERIKA Non-Admin Reason: No Insulin Coverage Morphine Sulfate (Morphine Sulfate 2 Mg/Ml Cartridge) 2 mg IVPUSH Q4H PRN; Protocol PRN Reason: Pain, Severe (Pain Scale 7-10) Last Admin: 11/26/21 23:16 Dose: 2 mg Documented by: ERIKA Ondansetron HCl (Ondansetron Hcl 4 Mg/2 Ml Vial) 4 mg IVPUSH Q8H PRN PRN Reason: Nausea and Vomiting Last Admin: 11/26/21 14:45 Dose: 4 mg Documented by: TRINIDAD Ropinirole HCl (Ropinirole Hcl 2 Mg Tablet) 2 mg PO BID [facility] Last Admin: 11/26/21 21:41 Dose: 2 mg Documented by: ERIKA Sodium Chloride (0.9 % Sodium Chloride Flush 3 Ml Syringe) 3 ml IVFLUSH QSHIFT [facility] Last Admin: 11/26/21 21:43 Dose: Not Given Documented by: ERIKA Non-Admin Reason: IV Running Trazodone HCl (Trazodone Hcl 100 Mg Tablet) 200 mg PO BEDTIME [facility] Last Admin: 11/26/21 21:41 Dose: 200 mg Documented by: ERIKA Labs CBC & Chem 7: 11/25/21 08:43 11/27/21 06:11 Labs: Laboratory Results - last 24 hr 11/26/21 11/26/21 11/26/21 11:07 15:18 20:18 Anion Gap Estim Creat Clear Calc Estimated GFR POC Glucose 97 117 H 124 H Random Glucose Calcium 11/27/21 11/27/21 06:11 07:16 Anion Gap 11 L Estim Creat Clear Calc 36.4 Estimated GFR 43 POC Glucose 114 Random Glucose 115 Calcium 8.5 Assessment and Plan (1) Enteritis: Status: Acute Plan 71-year-old female patient with past medical history significant for hypertension, hyperlipidemia, diabetes mellitus, GERD, osteoarthritis, CKD3, osteo chondroma left femur history of COPD on 2 L of oxygen, history of obstru ctive sleep apnea on CPAP. She presented to ED with abdominal pain and found to have enteritis. Enteritis- abd ct: 1. No vascular abnormality to suggest mesenteric ischemia. 2. Persistent inflammatory change of the fat in the region of small bowel wall thickening in the left anterior abdomen. The wall thickening is less prominent than on the recent prior study. This is suggestive of enteritis, likely infectious or inflammatory Treat with IV Abx (Flagyl, Ceftriaxone) GI consult-noted -persistent abomen pain,continue iv antibiotics,clear liquid diet added surgery eval-noted,continue current management. CKD3.? Creatinine Near baseline Avoid nephrotoxic agents Chronic respiratory failure secondary to COPD-has copd excerebation Continue 2 L supplemental oxygen, nebs Diarrahe: stool studies if cdiff neg -then will lopermide. Diabetes: fs running 100-130 range will convert home dose of Levimir to Lantus hold metformin SSI, POCs, ADA diet Hypertension Continue lisinopril and amlodipine Mood Continue home medications, wellbutrin, atarax Neuropathy Continue gabapentin HLD continue HLD RLS continue ropinerole, gabapentin Morbid obesity.? Discussed the importance of weight management as this may contribute to worsening of other comorbidities. DVT prophylaxis, heparin Inaptient need: Ongoing management with IV Abx for suspected bacterial enteritis, peristent pain with need for IV pain medication and diet clear liquid , diarrhae -if tolerate will advance. Quality Stroke Does the patient have a stroke diagnosis?: No VTE Prior VTE?: No VTE Risk Level:: Medical - moderate - high VTE Device Contraindication: Treatment Not Indicated VTE Drug Contraindication: N/A - Med Ordered
[2021-11-27] MEDS: rOPINIRole HCL 2 MG TABLET PO ×2 (09:40→20:35)
[2021-11-27] MEDS: Heparin Sodium,Porcine 5,000 UNIT/ML VIAL 5000 UNIT SUBCUT ×2 (09:40→20:34)
[2021-11-27] MEDS: Furosemide 20 MG/2 ML VIAL IVPUSH (09:40)
[2021-11-27] MEDS: metroNIDAZOLE/NS 500 MG/100 ML PIGGYBACK 100 MG IV ×2 (09:41→17:28)
[2021-11-27] MEDS: 0.9 % Sodium Chloride Flush 3 ML SYRINGE IVFLUSH (09:41)
[2021-11-27] MEDS: 0.9 % Sodium Chloride 1,000 ML 100 ML IVCONT (09:56)
[2021-11-27] MEDS: cefTRIAXone sodium 1 GM in 0.9 % Sodium Chloride 50 ML IV (11:00)
[2021-11-27] MEDS: Morphine Sulfate 2 MG/ML CARTRIDGE IVPUSH ×2 (11:04→21:36)
[2021-11-27 11:23] LABS: Glucose, Whole Blood 138 mg/dL (60-115)
[2021-11-27] MEDS: Albuterol/Iprat 2.5/0.5MG 3 ML AMPUL.NEB INHALE ×3 (11:38→19:08)
[2021-11-27] MEDS: ondansetron HCL 4 MG/2 ML VIAL IVPUSH ×2 (11:53→23:18)
[2021-11-27 15:57] LABS: Glucose, Whole Blood 104 mg/dL (60-115)
[2021-11-27] MEDS: 0.9 % Sodium Chloride 1,000 ML 50 ML IVCONT (17:29)
[2021-11-27 19:46] LABS: Glucose, Whole Blood 175 mg/dL (60-115)
[2021-11-27] MEDS: traZODone HCL 100 MG TABLET 200 MG PO (20:35)
[2021-11-27] MEDS: Gabapentin 300 MG CAPSULE 900 MG PO (20:35)
[2021-11-28] MEDS: 0.9 % Sodium Chloride Flush 3 ML SYRINGE IVFLUSH (01:02)
[2021-11-28] MEDS: metroNIDAZOLE/NS 500 MG/100 ML PIGGYBACK 100 MG IV ×2 (01:02→09:45)
[2021-11-28 01:53] VITALS: RESP 18
[2021-11-28] MEDS: Morphine Sulfate 2 MG/ML CARTRIDGE IVPUSH (01:53)
[2021-11-28] MEDS: 0.9 % Sodium Chloride 1,000 ML 50 ML IVCONT (01:54)
[2021-11-28 03:31] VITALS: BP 126/60; PULSE 76; RESP 14; O2SAT 91
[2021-11-28 07:30] VITALS: BP 145/68; PULSE 100; RESP 18; TEMP 36.7; O2SAT 94
[2021-11-28 07:50] LABS: Glucose, Whole Blood 134 mg/dL (60-115)
[2021-11-28] MEDS: Albuterol/Iprat 2.5/0.5MG 3 ML AMPUL.NEB INHALE ×2 (08:27→11:25)
[2021-11-28 08:28] VITALS: PULSE 89; RESP 20; O2SAT 91
[2021-11-28] MEDS: rOPINIRole HCL 2 MG TABLET PO (08:40)
[2021-11-28] MEDS: Heparin Sodium,Porcine 5,000 UNIT/ML VIAL 5000 UNIT SUBCUT (08:40)
[2021-11-28] MEDS: cefTRIAXone sodium 1 GM in 0.9 % Sodium Chloride 50 ML IV (08:40)
[2021-11-28] MEDS: ondansetron HCL 4 MG/2 ML VIAL IVPUSH (09:46)
[2021-11-28 11:27] VITALS: PULSE 89; RESP 20; O2SAT 94
[2021-11-28 11:46] VITALS: BP 139/62; PULSE 91; RESP 18; TEMP 36.7; O2SAT 91
[2021-11-28 11:57] LABS: Glucose, Whole Blood 152 mg/dL (60-115)
--- NOTE | 2021-11-28 12:48 | HO.PM.IMPN ---
Subjective Subjective Date of Service: 11/28/21 Interval History: Enteritis Review of Systems Abdominal pain improving, tolerating diet, denies any chest pain or shortness of breath or fever or chills. Physical Exam Vital Signs: Vital Signs: Last Vital Signs Temp 98.1 F 11/28/21 11:46 Pulse 91 11/28/21 11:46 Resp 18 11/28/21 11:46 BP 139/62 11/28/21 11:46 Pulse Ox 91 L 11/28/21 11:46 BMI result Body Mass Index 29.7 Appearance: Alert.? Oriented X3.? cvs: rrr, [id number] , no murmur res:? Air entry fair, has mild wheezing. abd: no rebound or guarding ,painseems imporving significantly, bs present. ext pulses present , no cyanosis . neuro: axo3 , nonfocal Objective Data Active Medications Albuterol/Ipratropium (Albuterol/Iprat 2.5/0.5mg 3 Ml Ampul.Neb) 3 ml INHALE RQ4H WHILE AWAKE [facility] Last Admin: 11/28/21 11:25 Dose: 3 ml Documented by: KYREE Dextrose (Dextrose 50 % 25 Gm/50 Ml Syringe) 25 gm IVPUSH Q15M PRN; Protocol PRN Reason: per Hypoglycemia Standing Ord. Gabapentin (Gabapentin 300 Mg Capsule) 900 mg PO BEDTIME [facility] Last Admin: 11/27/21 20:35 Dose: 900 mg Documented by: CRISTINO Glucose (Glucose Gel 15 Gm Gel..Gram.) 15 gm PO Q15M PRN; Protocol PRN Reason: per Hypoglycemia Standing Ord. Heparin Sodium (Porcine) (Heparin Sodium,Porcine 5,000 Unit/Ml Vial) 5,000 unit SUBCUT Q12H [facility] Last Admin: 11/28/21 08:40 Dose: 5,000 unit Documented by: ZAK Ceftriaxone Sodium 1 gm/ (Sodium Chloride) 50 mls @ 100 mls/hr IV Q24H [facility] Last Infusion: 11/28/21 09:55 Dose: 0 mls/hr Documented by: ZAK Metronidazole (Flagyl) 500 mg in 100 mls @ 100 mls/hr IV Q8H [facility] Last Infusion: 11/28/21 11:06 Dose: 0 mls/hr Documented by: ZAK Insulin Human Lispro (Insulin Lispro 100 Unit/Ml 3 Ml Vial) 0 unit SUBCUT QIDACHS [facility]; Protocol Last Admin: 11/28/21 12:03 Dose: Not Given Documented by: ZAK Non-Admin Reason: No Insulin Coverage Morphine Sulfate (Morphine Sulfate 2 Mg/Ml Cartridge) 2 mg IVPUSH Q4H PRN; Protocol PRN Reason: Pain, Severe (Pain Scale 7-10) Last Admin: 11/28/21 01:53 Dose: 2 mg Documented by: JACOBOC Ondansetron HCl (Ondansetron Hcl 4 Mg/2 Ml Vial) 4 mg IVPUSH Q6H PRN PRN Reason: Nausea and Vomiting Ropinirole HCl (Ropinirole Hcl 2 Mg Tablet) 2 mg PO BID [facility] Last Admin: 11/28/21 08:40 Dose: 2 mg Documented by: ZAK Sodium Chloride (0.9 % Sodium Chloride Flush 3 Ml Syringe) 3 ml IVFLUSH QSHIFT [facility] Last Admin: 11/28/21 08:24 Dose: Not Given Documented by: COTEMA Non-Admin Reason: IV Running Trazodone HCl (Trazodone Hcl 100 Mg Tablet) 200 mg PO BEDTIME [facility] Last Admin: 11/27/21 20:35 Dose: 200 mg Documented by: BEIT Labs CBC & Chem 7: 11/25/21 08:43 11/27/21 06:11 Labs: Laboratory Results - last 24 hr 11/27/21 11/27/21 11/28/21 15:12 18:57 07:29 POC Glucose 104 175 H 134 H 11/28/21 11:47 POC Glucose 152 H Assessment and Plan Plan 71-year-old female patient with past medical history significant for hypertension, hyperlipidemia, diabetes mellitus, GERD, osteoarthritis, CKD3, osteo chondroma left femur history of COPD on 2 L of oxygen, history of obstructive sleep apnea on CPAP. She presented to ED with abdominal pain and found to have enteritis. Enteritis- abd ct: 1. No vascular abnormality to suggest mesenteric ischemia. 2. Persistent inflammatory change of the fat in the region of small bowel wall thickening in the left anterior abdomen. The wall thickening is less prominent than on the recent prior study. This is suggestive of enteritis, likely infectious or inflammatory Treat with IV Abx (Flagyl, Ceftriaxone) GI consult-noted -persistent abomen pain,continue iv antibiotics,clear liquid diet added surgery eval-noted,continue current management. CKD3.? Creatinine Near baseline Avoid nephrotoxic agents Chronic respiratory failure secondary to COPD-has copd excerebation Continue 2 L supplemental oxygen, nebs Diarrahe: stool studies if cdiff neg -then will lopermide. Diabetes: fs running 100-130 range will convert home dose of Levimir to Lantus hold metformin SSI, POCs, ADA diet Hypertension Continue lisinopril and amlodipine Mood Continue home medications, wellbutrin, atarax Neuropathy Continue gabapentin HLD continue HLD RLS continue ropinerole, gabapentin Morbid obesity.? Discussed the importance of weight management as this may contribute to worsening of other comorbidities. DVT prophylaxis, heparin Inaptient need Quality Stroke Does the patient have a stroke diagnosis?: No VTE Prior VTE?: No VTE Risk Level:: Medical - moderate - high VTE Device Contraindication: Treatment Not Indicated VTE Drug Contraindication: N/A - Med Ordered
--- NOTE | 2021-11-28 12:54 | PM.PNGS ---
Subjective Subjective Date of Service: 11/28/21 Interval history: Patient reports decreased abdominal pain. She is tolerating p.o. without nausea or vomiting. She reports a loose bowel movement yesterday, but no diarrhea today. Physical Exam Vital Signs: Vital Signs: Last Vital Signs Temp 98.1 F 11/28/21 11:46 Pulse 91 11/28/21 11:46 Resp 18 11/28/21 11:46 BP 139/62 11/28/21 11:46 Pulse Ox 91 L 11/28/21 11:46 BMI result Body Mass Index 29.7 Const: General: comfortable and no acute distress Nutritional Appearance: obese Orientation/consciousness: patient oriented x3 Resp: Effort & Inspection: normal respiratory effort, no cough and no respiratory distress GI: Palpation (GI): Soft to palpation and Tenderness to palpation present (GI) ( To deep palpation in the upper abdomen. No rebound or guarding) Percussion: Yes normal to percussion Auscultation: normal bowel sounds Neuro: General: patient oriented x3 Objective Data Active Medications Albuterol/Ipratropium (Albuterol/Iprat 2.5/0.5mg 3 Ml Ampul.Neb) 3 ml INHALE RQ4H WHILE AWAKE [facility] Last Admin: 11/28/21 11:25 Dose: 3 ml Documented by: KYREE Dextrose (Dextrose 50 % 25 Gm/50 Ml Syringe) 25 gm IVPUSH Q15M PRN; Protocol PRN Reason: per Hypoglycemia Standing Ord. Gabapentin (Gabapentin 300 Mg Capsule) 900 mg PO BEDTIME [facility] Last Admin: 11/27/21 20:35 Dose: 900 mg Documented by: CRISTINO Glucose (Glucose Gel 15 Gm Gel..Gram.) 15 gm PO Q15M PRN; Protocol PRN Reason: per Hypoglycemia Standing Ord. Heparin Sodium (Porcine) (Heparin Sodium,Porcine 5,000 Unit/Ml Vial) 5,000 unit SUBCUT Q12H [facility] Last Admin: 11/28/21 08:40 Dose: 5,000 unit Documented by: ZAK Ceftriaxone Sodium 1 gm/ (Sodium Chloride) 50 mls @ 100 mls/hr IV Q24H [facility] Last Infusion: 11/28/21 09:55 Dose: 0 mls/hr Documented by: ZAK Metronidazole (Flagyl) 500 mg in 100 mls @ 100 mls/hr IV Q8H [facility] Last Infusion: 11/28/21 11:06 Dose: 0 mls/hr Documented by: ZAK Insulin Human Lispro (Insulin Lispro 100 Unit/Ml 3 Ml Vial) 0 unit SUBCUT QIDACHS [facility]; Protocol Last Admin: 11/28/21 12:03 Dose: Not Given Documented by: ZAK Non-Admin Reason: No Insulin Coverage Morphine Sulfate (Morphine Sulfate 2 Mg/Ml Cartridge) 2 mg IVPUSH Q4H PRN; Protocol PRN Reason: Pain, Severe (Pain Scale 7-10) Last Admin: 11/28/21 01:53 Dose: 2 mg Documented by: NAUMOC Ondansetron HCl (Ondansetron Hcl 4 Mg/2 Ml Vial) 4 mg IVPUSH Q6H PRN PRN Reason: Nausea and Vomiting Ropinirole HCl (Ropinirole Hcl 2 Mg Tablet) 2 mg PO BID [facility] Last Admin: 11/28/21 08:40 Dose: 2 mg Documented by: ZAK Sodium Chloride (0.9 % Sodium Chloride Flush 3 Ml Syringe) 3 ml IVFLUSH QSHIFT [facility] Last Admin: 11/28/21 08:24 Dose: Not Given Documented by: COTEMA Non-Admin Reason: IV Running Trazodone HCl (Trazodone Hcl 100 Mg Tablet) 200 mg PO BEDTIME [facility] Last Admin: 11/27/21 20:35 Dose: 200 mg Documented by: BEIT Labs CBC & Chem 7: 11/25/21 08:43 11/27/21 06:11 Labs: Laboratory Results - last 24 hr 11/27/21 11/27/21 11/28/21 15:12 18:57 07:29 POC Glucose 104 175 H 134 H 11/28/21 11:47 POC Glucose 152 H Procedures Date of Service Date of Service: 11/28/21 Progress Note: A&P Assessment and plan (1) Enteritis: Status: Acute Plan Overall the patient is improved with decreased abdominal pain and no evidence of bowel obstruction. She is tolerating some p.o. without nausea or vomiting and her bowels are moving. No surgical intervention recommended. Time Spent With Patient Time: Total time spent is greater than 50% in coordination of care (as documented) at patient's floor/unit and/or counseling patient: Quality Stroke Does the patient have a stroke diagnosis?: No VTE Prior VTE?: No VTE Risk Level:: Medical - moderate - high VTE Device Contraindication: Treatment Not Indicated VTE Drug Contraindication: N/A - Med Ordered
--- NOTE | 2021-11-28 13:00 | MHC.CM.PN ---
PATIENT AGREESS TO RETURN HOME TODAY HER SON LEAVES WORK AT [address] PROVIDE TRANSPORT PATIENT REQUESTS [facility], SHE HAD THEM IN THE PAST AND LIKED THE CARD WRITER [employer]ACED IMM 11/27 IN CHART
--- NOTE | 2021-11-28 13:44 | W.MHC.F2F ---
Service Date Service Date: 11/28/21 Encounter Date of encounter: 11/28/21 Reasons for Services Signs and symptoms assessed: Enteritis, Kay on CKD. Denies any new complaint of chest pain or shortness of breath or abdominal pain or fever or chills or nausea or vomiting Denies any cough Denies any weakness or numbness. Reason for intermediate: diabetic teaching, medication management, medication treatment and teach disease management MD Overseeing Care: Shelbi Perez Homebound: Leaving the home is medically contraindicated at this time without the asist of a device and/or another person due th the listed conditions above and below. Reason homebound: weakness related to hospital stay Homebound supporting statement: Patient is generalized weak post hospitalization-also need help with appointments, blood draws. Certification: Based on the above findings, I certify that this patient is confined to the home and needs intermittent intermediate care, physical therapy and/or speech therapy, or continues to need occupational therapy. The patient is under my care, and I have initiated the establishment of the plan of care. The patient will be followed by a physician who will periodically review the plan of care.
--- NOTE | 2021-11-28 13:48 | MHC.CM.PN ---
[facility] HAS TAKEN THE DAY OFF AND WILL BE IN TO TRANSPORT HIS MOTHER AROUND 1530 TODAY RN AWARE
--- NOTE | 2021-11-28 13:54 | P.DS_ITS ---
DS: Providers Provider Date of Service: 11/28/21 Date of admission: 11/24/21 09:11 Primary care physician: Shelbi Perez MD Consults: 11/25/21 09:34 Consult to Gastroenterology Routine Consulting Provider: Tom Carrasco Reason for consultation: enteritis Has provider been notified: No 11/26/21 12:52 Consult to General Surgery Routine Consulting Provider: [facility] General Surgeons Reason for consultation: abd pain not improvin , enritis ,multiple abd surgeries Has provider been notified: No DS: Diagnosis Discharge Diagnosis (1) Enteritis: Status: Acute DS: Summary Hospital Course Hospital Course: 71-year-old female patient with past medical history significant for hypertension, hyperlipidemia, diabetes mellitus, GERD, osteoarthritis, CKD3, osteo chondroma left femur history of COPD on 2 L of oxygen, history of obstructive sleep apnea on CPAP. She presented to ED with abdominal pain. She had been seen in ED the day before with abdominal pain that was attributed to constipation and was given bowel regimen which she took and had multiple bowel and thought she was all cleaned up , however she continues to have abdominal pain in the epigastric region and returned to the ED where a CT initially raised conncern of mesenteric ischemia but a repeat with contrast showed no evidence of mesenteric ischemia but rather? enteritis coinciding with WBC of 16. She was given Zosyn in the ED. Hospital course: Patient was admitted for mid abdominal pain and found to have enteritis started on IV antibiotic and CT abdomen was done-with IV antibiotics and bowel rest and hydration patient improved significantly. CT abdomen does not show ischemia. Leukocytosis improved, no fever, blood culture negative at 48 hours. Patient was seen by surgery and GI-since patient is improving patient is going home with p.o. antibiotics. Patient also had a KI on CKD: Improved with hydration and holding lisinopril, monitor BMP out patiently in 1 week-further use of lisinopril out patiently as per PCP. Patient was encouraged for p.o. hydration. Mild COPD exacerbation improved with nebs.not sob or wheezing anymore,continue home meds . Above management discussed with the patient in detail length she understand and in agreement with the above plan, time spent 50 minutes and 50% time spent on counseling. Significant findings: As above. Procedures performed: None. Treatment and response: As above. Complications: None. Time Spent with Patient Time attestation: Total time spent providing and/or coordinating discharge services: Discharge coordination time: Greater than 30 minutes Quality: Safe Use of Opioids Does Pt have an Active Cancer Diagnosis on the Problem List?: No Quality: Stroke Does the patient have a stroke diagnosis?: No Physical Exam Vital Signs: Vital Signs: Last Vital Signs Temp 98.1 F 11/28/21 11:46 Pulse 91 11/28/21 11:46 Resp 18 11/28/21 11:46 BP 139/62 11/28/21 11:46 Pulse Ox 91 L 11/28/21 11:46 BMI result Body Mass Index 29.7 Appearance: Alert.? Oriented X3.? cvs: rrr, [id number] , no murmur res:? Air entry fair, has mild wheezing. abd: no rebound or guarding ,abd pain improved, bs present. ext pulses present , no cyanosis . neuro: axo3 , nonfocal DS: Data Data Completed and Pending Completed studies during hospitalization [Text1]: Procedures Replacement of Left Knee Joint with Synthetic Substitute, Uncemented, Open Approach (05/28/20) Labs on day of discharge: Laboratory Results - last 24 hr 11/27/21 11/27/21 11/28/21 15:12 18:57 07:29 POC Glucose 104 175 H 134 H 11/28/21 11:47 POC Glucose 152 H Preliminary micro results at discharge 11/23/21 23:10 Blood Culture - Preliminary Blood - Venous No growth after 48 hours. 11/23/21 23:10 Blood Culture - Preliminary Blood - Venous No growth after 48 hours. Additional Comments Additional comments: CT/CT angio abdomen pelvis IMPRESSION: ? 1. No vascular abnormality to suggest mesenteric ischemia. 2. Persistent inflammatory change of the fat in the region of small bowel wall thickening in the left anterior abdomen. The wall thickening is less prominent than on the recent prior study. This is suggestive of enteritis, likely infectious or inflammatory. ? Fleischner guidelines were followed. Discharge Plan Discharge Patient Disposition: Home, Self-Care Discharge Diagnosis: enteritis Referrals: [facility] [Outside] - 1 Week Shelbi Perez MD [Primary Care Provider] - 1 Week Discharge Medications: New amoxicillin-pot clavulanate 875-125 mg tablet 1 tab PO BID Qty: 8 0RF Continued (DME) lancets 28 gauge misc See Rx Instructions ea topical TID Qty: 100 3RF Rx Instructions: once a day (DME) Depend Underwear For Women S-M [facility] [place] See Rx Instructions .ROUTE .MEDSUPPLY Qty: 64 6RF Rx Instructions: 2 times a day as needed atorvastatin 80 mg tablet 80 mg PO DAILY 90 Days Qty: 90 0RF (DME) pen needle, diabetic [BD Ultra-Fine Mini Pen Needle] 31 gauge x 3/16 needle See Rx Instructions .Route Qty: 100 2RF Rx Instructions: Use to administer insulin twice daily (DME) FreeStyle Lite Strips Strip See Rx Instructions .Route 0RF Rx Instructions: Use to check blood sugar twice daily and when having symptoms of hy po/hyperglycemia (DME) pen needle, diabetic 31 gauge x 3/16 needle See Rx Instructions ea subcut TID Qty: 100 1RF Rx Instructions: As directed ropinirole 2 mg tablet 2 mg PO BID 90 Days Qty: 180 1RF hydrocortisone 2.5 % cream 1 appl topical BID PRN (Reason: skin irritation) Qty: 20 0RF albuterol sulfate 1.25 mg/3 mL solution for nebulization 2.5 mg inhalation Q4-6H MDD copd PRN (Reason: copd) 30 Days Qty: 90 2RF amlodipine [Norvasc] 5 mg tablet 5 mg PO DAILY 30 Days Qty: 90 0RF (DME) AeroEclipse II Nebulizer [facility] [place] See Rx Instructions .ROUTE .MEDSUPPLY Qty: 1 0RF Rx Instructions: As directed hydroxyzine pamoate 25 mg capsule 1 cap PO BID 0RF gabapentin 300 mg capsule 300 mg PO DAILY 0RF Levemir FlexTouch U-100 Insuln 100 unit/mL (3 mL) insulin pen 20 unit subcut DAILY 0RF glipizide 2.5 mg tablet extended release 24 hr 2.5 mg PO DAILY Qty: 30 0RF trazodone 100 mg tablet 200 mg PO BEDTIME 0RF aspirin 81 mg Tablet,Chewable 81 mg PO DAILY 0RF docusate sodium [Colace] 100 mg capsule 100 mg PO BID Qty: 60 2RF montelukast 10 mg tablet 10 mg PO DAILY 0RF gabapentin 300 mg capsule 900 mg PO BEDTIME 0RF Rx Instructions: pt takes 1 300mg in am and pm and 3 and bedtime acyclovir [Zovirax] 5 % ointment 1 appl topical 6XD 7 Days Qty: 5 0RF bupropion HCl 150 mg tablet extended release 24 hr 150 mg PO DAILY 0RF (DME) oxygen-air delivery systems Device See Rx Instructions .ROUTE .MEDSUPPLY Qty: 1 0RF Rx Instructions: As directed albuterol sulfate [ProAir HFA] 90 mcg/actuation HFA aerosol inhaler 2 puff inhalation Q4-6H PRN (Reason: shortness of breath or wheezing) 30 Days Qty: 8.5 2RF Held lisinopril 5 mg tablet 1 tab PO DAILY 0RF Hold Instructions: Resume on 12/10/21. Discharge Orders: Discharge Order (Routine); Ordered 11/28/21 Ordered By: Russell Diaz Diet: advance to usual diet Activity on Discharge: As tolerated Stand Alone Forms: Patient Portal Discharge page Care Plan Goals: Patient was admitted for mid abdominal pain and found to have enteritis started on IV antibiotic and CT abdomen was done-with IV antibiotics and bowel rest and hydration patient improved significantly. CT abdomen does not show ischemia. Leukocytosis improved, no fever, blood culture negative at 48 hours. Patient was seen by surgery and GI-since patient is improving patient is going home with p.o. antibiotics. Patient also had a KI on CKD: Improved with hydration and holding lisinopril, monitor BMP out patiently in 1 week-further use of lisinopril out patiently as per PCP. Patient was encouraged for p.o. hydration. Mild COPD exacerbation improved with nebs. Health Concerns: As above. Plan of Treatment: As above. Assessment: As Above.
[2021-11-28] MEDS: Amoxicillin/Potassium Clav 875 MG TABLET PO (14:05)
== END 2021-11-28 15:23 | disposition home or self-care (01) | DRG 392 ==
LOC: HO.ED 11-24 06:20 → HO.EDOVER 11-24 09:26 → HO.S3 11-24 19:44
PROVIDERS: Physician Assistant; Student in an Organized Health Care Education/Training Program; Admitting Provider Internal Medicine; Emergency Provider Internal Medicine; PCP Internal Medicine; Visit Provider Internal Medicine
DX: A09 Infectious gastroenteritis and colitis, unspecified (principal); J44.1 Chronic obstructive pulmonary disease with (acute) exacerbation; N17.9 Acute kidney failure, unspecified; J96.10 Chronic respiratory failure, unspecified whether with hypoxia or hypercapnia; G47.33 Obstructive sleep apnea (adult) (pediatric); I12.9 Hypertensive chronic kidney disease with stage 1 through stage 4 chronic kidney disease, or unspecified chronic kidney disease; N18.30 Chronic kidney disease, stage 3 unspecified; E11.22 Type 2 diabetes mellitus with diabetic chronic kidney disease; E78.5 Hyperlipidemia, unspecified; K21.9 Gastro-esophageal reflux disease without esophagitis; M19.90 Unspecified osteoarthritis, unspecified site; E11.40 Type 2 diabetes mellitus with diabetic neuropathy, unspecified; G25.81 Restless legs syndrome; E66.01 Morbid (severe) obesity due to excess calories; Z96.652 Presence of left artificial knee joint; Z68.29 Body mass index [BMI] 29.0-29.9, adult; Z20.822 Contact with and (suspected) exposure to COVID-19; Z88.8 Allergy status to other drugs, medicaments and biological substances; Z79.4 Long term (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 insulin; Z79.82 Long term (current) use of aspirin; Z79.899 Other long term (current) drug therapy
CPT/HCPCS: 36415; 74018; 74174; 74176; 80048; 80053; 80076; 81001; 82947; 83605; 83690; 83735; 84484; 85025; 85027; 85610; 85652; 86140; 87040; 87502; 87635; 93005; 96361; 96365; 96374; 96375; 99283; 99284; 99285; J0696; J1170; J1940; J2270; J2405; J2543; Q9967

== ENCOUNTER → 2021-12-30 15:15 | Outpatient (BNVA) | payer MEDICARE, MEDICAID, SELFPAY | PROVIDERS: PCP Internal Medicine; Visit Provider Internal Medicine | DX: G47.33 Obstructive sleep apnea (adult) (pediatric) (principal); G47.34 Idiopathic sleep related nonobstructive alveolar hypoventilation; J98.4 Other disorders of lung; E66.01 Morbid (severe) obesity due to excess calories; Z68.41 Body mass index [BMI] 40.0-44.9, adult | CPT/HCPCS: 99212 ==

== ENCOUNTER 2022-01-03 20:11 | Inpatient (IN) | payer MEDICARE, MEDICAID, SELFPAY ==
--- NOTE | ~2022-01-03 | US_ITS ---
EXAMINATION: US VENOUS ULTRASOUND WITH DOPPLER LOWER EXTREMITY, BILATERAL CLINICAL INFORMATION: Bilateral lower extremity pain. COMPARISON: None TECHNIQUE: Ultrasound of the deep veins is performed from the hip to the calf with compression sonography and color and pulse Doppler assessment. Spectral analysis with color-flow imaging is performed. FINDINGS: RIGHT: There is normal venous compression and respiratory variation and augmented flow. The visualized common femoral vein, superficial femoral vein, profunda femoral vein, popliteal vein, and the trifurcation region shows no evidence of deep venous thrombosis. There is no significant popliteal fossa cyst. LEFT: There is normal venous compression and respiratory variation and augmented flow. The visualized common femoral vein, superficial femoral vein, profunda femoral vein, popliteal vein, and the trifurcation region shows no evidence of deep venous thrombosis. There is no significant popliteal fossa cyst. If the patient's symptoms persist, followup ultrasound in 5 days 7 days might be of value to exclude proximal propagation from a non-visualized calf vein. US/US venous duplex LE BI IMPRESSION: No DVT demonstrated in the bilateral lower extremity.
--- NOTE | ~2022-01-03 | CT_ITS ---
EXAMINATION: CT ABDOMEN AND PELVIS WITHOUT CONTRAST CLINICAL INFORMATION: Constipation, abdominal pain, vomiting. COMPARISON: 11/23/2021, 11/24/2021, 2017 study TECHNIQUE: Multidetector volumetric imaging was performed from the superior aspect of the liver through the pubic symphysis. Sagittal and coronal reformatted images were obtained on the technologist's workstation. This CT examination was performed using dose optimization techniques as appropriate, variously including the following: *Automated exposure control *Adjustment of mA and/or kV according to patient size (this includes techniques or standardized protocols for targeted exams where dose is matched to indication/reason for exam; i.e. extremities or head) *Use of iterative reconstruction technique DLP: 1005 mGy-cm FINDINGS: This exam is limited from motion. LUNG BASES: Comparable to previous. No acute finding LIVER, GALLBLADDER, AND BILIARY TREE: The liver is normal in size, shape, and attenuation. No focal hepatic lesion or biliary ductal dilatation is present. A normal gallbladder is not seen. No change from previous PANCREAS: Unremarkable. SPLEEN: Unremarkable. ADRENAL GLANDS: Unremarkable. KIDNEYS AND URETERS: Nonobstructing calculi on the left. BLADDER: Unremarkable. GASTROINTESTINAL TRACT: The bowel pattern is felt to be nonobstructing. Again motion limits detailed evaluation. Overall there is felt to be decreasing soft tissue stranding associated with bowel loops adjacent to the abdominal wall on the left however there is felt to be some soft tissue stranding which is new around the region of the splenic flexure and some thickening of the bowel wall here.. In addition there is air density in the region and while vast majority of this is felt to be in bowel cannot exclude some localized air density outside of the bowel as some of this air density is intimately associated with the anterior abdominal wall. ABDOMINAL WALL: No significant hernia is appreciated. LYMPH NODES: Normal. VASCULAR: No aneurysmal change. Some atherosclerotic changes PELVIC VISCERA: Unremarkable. OSSEOUS STRUCTURES: Degenerative changes. Sclerotic area anterior at D11 is not significantly changed from most recent previous but is felt to be increasing from previous studies dating 09/01/2017 CT/CT abdomen pelvis wo con IMPRESSION: While there is overall improvement in the appearance of bowel adjacent the abdominal wall on the left there is felt to be a new area of concern in the region and this is felt to be involving large bowel in the region of the splenic flexure. There are diverticular in the region therefore this could represent diverticulitis. Colitis infectious versus noninfectious focal would also be in the differential and ischemia again cannot be excluded. In addition air densities are seen in the region and while the majority of this air density is felt to be within bowel loops I cannot exclude some extraluminal air density and some of this does appear to be associated with the abdominal wall. Correlation needs to be made clinically. Abscess in this region cannot be excluded Motion does limit this exam and therefore detailed evaluation is limited. Sclerotic lesion at D11 which is increasing in size compared to previous studies. Certainly sclerotic metastatic metastatic focus cannot be excluded though no other lesion is seen here. Correlation recommended clinically. Recommend pre and postcontrast MRI to further evaluate and/or bone scan Fleischner guidelines were followed.
[2022-01-03 20:17] VITALS: BP 150/100; PULSE 86; O2SAT 95
--- NOTE | 2022-01-03 20:22 | ECG_ITS ---
Test Reason : nausea/vomiting Blood Pressure : / mmHG Vent. Rate : 085 BPM Atrial Rate : 085 BPM P-R Int : 168 ms QRS Dur : 082 ms QT Int : 380 ms P-R-T Axes : 047 015 024 degrees QTc Int : 452 ms Normal sinus rhythm Nonspecific ST abnormality Abnormal ECG When compared with ECG of 24-NOV-2021 03:34, Nonspecific T wave abnormality, improved in Anterior leads Referred By: Arleen Banegas Electronically Signed By:RAMSEY ZARATE MD
--- NOTE | 2022-01-03 20:25 | ED_ITS ---
HPI - Nausea/Vomiting/Diarrhea General Chief complaint: Nausea/Vomiting/Diarrhea Stated complaint: N/V Time Seen by Provider: 01/03/22 20:21 Source: patient Mode of arrival: EMS Limitations: no limitations History of Present Illness HPI Narrative: 71 yo female hx of CKD, enteritis, DM, obesity, chronic abdominal pain, SBO in past with ex lap and lysis of adhesions, IDDM, here with c/o nausea and vomiting after eating a ham sandwhich today all symptoms started at 4pm. She reports some mild abdominal pain. She is passing gas today. Last BM two days ago per her reports which was diarrhea. MD elicited complaint: nausea, vomiting and abdominal pain Pertinent past history: bowel obstruction Onset (ago): hour(s) (4) Description of vomiting: food contents and watery Associated nausea: Yes Associated abdominal pain: Yes Location of pain: diffuse Radiation: diffuse Pain consistency: intermittent Severity: mild Quality: cramping Exacerbating factors: eating Relieving factors: none Context: other (started after eating a ham sandwhich) Associated symptoms: loss of appetite, malaise and nausea/vomiting Treatment prior to arrival: other (zofran with EMS) Related Data Home Medications Medication Instructions Recorded Confirmed bupropion HCl 150 mg 24 hr tablet, 150 mg PO DAILY 04/25/20 11/29/21 extended release oxygen-air delivery systems ##1 04/25/20 11/29/21 gabapentin 300 mg capsule 900 mg PO BEDTIME 05/13/21 11/29/21 gabapentin 300 mg capsule 300 mg PO DAILY 06/29/21 11/29/21 hydroxyzine pamoate 25 mg capsule 1 cap PO BID 06/29/21 11/29/21 blood sugar diagnostic (FreeStyle 08/09/21 11/29/21 Lite Strips) insulin detemir U-100 100 unit/mL 20 unit subcut DAILY 08/12/21 11/29/21 (3 mL) subcutaneous pen (Levemir FlexTouch U-100 Insulin) aspirin 81 mg chewable tablet 81 mg PO DAILY 10/01/21 11/29/21 lisinopril 5 mg tablet 1 tab PO DAILY 10/01/21 11/29/21 trazodone 100 mg tablet 200 mg PO BEDTIME 10/01/21 11/29/21 Previous Rx's Medication Instructions Recorded nebulizers (AeroEclipse II #1 ea 02/05/21 Nebulizer) albuterol sulfate 90 mcg/actuation 2 puff inhalation Q4-6H PRN 05/13/21 aerosol inhaler (ProAir HFA) shortness of breath or wheezing 30 days #8.5 grams lancets 28 gauge #100 ea 06/24/21 diaper,brief,adult,disposable #64 ea 06/26/21 (Depend Underwear For Women S-M) pen needle, diabetic 31 gauge x #100 ea 08/09/2109/25 (BD Ultra-Fine Mini Pen Needle) pen needle, diabetic 31 gauge x #100 ea 08/12/21 316 ropinirole 2 mg tablet 2 mg PO BID 90 days #180 tabs 09/16/21 docusate sodium 100 mg capsule 100 mg PO BID #60 caps 10/07/21 (Colace) acyclovir 5 % topical ointment 1 appl topical 6XD 7 days #5 grams 11/18/21 (Zovirax) hydrocortisone 2.5 % topical cream 1 appl topical BID PRN skin 11/20/21 irritation #20 grams montelukast 10 mg tablet 10 mg PO DAILY #90 tabs 11/29/21 albuterol sulfate 1.25 mg/3 mL 2.5 mg (6 mL) inhalation Q4-6H PRN 12/30/21 solution for nebulization copd 30 days #90 mL amlodipine 5 mg tablet (Norvasc) 5 mg PO DAILY 30 days #90 tabs 01/01/22 atorvastatin 80 mg tablet 80 mg PO DAILY 90 days #90 tabs 01/01/22 Allergies Allergy/AdvReac Type Severity Reaction Status Date / Time adhesive tape [ADHESIVE TAPE] Allergy Intermediate RASH Verified 12/30/21 16:03 trimethobenzamide Allergy Mild NAUSEA Verified 12/30/21 16:03 [From TIGAN] environmental Allergy Intermediate Nasal Uncoded 12/30/21 16:03 congestion Review of Systems Review of Systems: Constitutional : No Weight loss, No Fever, No Chills ENT/Mouth : No sore throat, No Rhinorrhea Eyes: No Swelling, No Redness Cardiovascular : No Chest Pain, No SOB, NoEdema Respiratory : No Cough, No Sputum, No Wheezing Gastrointestinal : Positive Nausea, Positive Vomiting, no Diarrhea, positive abdominal Pain, No Hematochezia, No Melena Genitourinary : No Dysuria, No Urinary Frequency, No Hematuria, No Urgency Musculoskeletal : No joint pain, No Myalgias, No Joint Swelling Skin : No Skin Lesions, No rash Neuro : No Weakness, No Numbness, No Dizziness, No Headache Psych : No Anxiety/Panic, No Depression Heme/Lymph: No Bruising, No Lymphadenopathy Endocrine : No Polyuria, No Polydipsia All other systems reviewed and are negative. Gastrointestinal: Gastrointestinal: Reports nausea PMFSH Past Medical History Attestation statement: The following information was validated with the patient. Medical History Anemia CKD (chronic kidney disease) COPD exacerbation CPAP (continuous positive airway pressure) dependence Diabetes Elevated cholesterol GERD (gastroesophageal reflux disease) History of adrenal adenoma History of diverticulitis History of restless legs syndrome Hx SBO Hyperlipidemia Osteoarthritis of left knee Osteochondroma of left femur Surgical History H/O colonoscopy H/O excision of mass H/O exploratory laparotomy History of appendectomy History of arthroscopy of left knee History of cholecystectomy History of hysterectomy History of oophorectomy History of partial colectomy History of surgery Hx of cataract extraction Family History Family History Father HTN (hypertension) Diabetes mellitus Mother HTN (hypertension) Liver cancer Social History Social History 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: Family 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 Other:: EX Housing: House Are you a primary administrator health care facility to a significant other at home: No Do you presently have visiting nurse or other home services: No Alcohol intake: never Patient Tobacco Use Status: Never used Tobacco e-Cigarette/Vaping Use: Never Used Second Hand Smoke Exposure: No Advance Directives: Yes Advance Directives on File: Yes Advance Directives Date on File: 07/08/21 service: No Current occupational status: retired Cognitive needs: No Hearing needs: No Vision needs: No Physical Exam Vital Signs: Vital Signs: Last Vital Signs Temp 98.4 F 01/03/22 22:00 Pulse 71 01/03/22 22:00 Resp 16 01/03/22 22:00 BP 97/54 L 01/03/22 22:00 Pulse Ox 98 01/03/22 22:00 O2 Del Method 01/03/22 22:00 Oxygen Flow Rate 4 01/03/22 20:28 BMI result Body Mass Index 39.9 Appearance: Alert. Oriented X3. No acute distress. Eyes: Pupils equal, round and reactive to light. ENT: Pharynx normal. Neck: Normal inspection. Neck supple. CVS: Normal heart rate and rhythm. Pulses normal. Respiratory: No respiratory distress. Breath sounds normal. Abdomen: Soft and obese with mild diffuse ttp no rebound, food emesis on shirt Skin: Skin warm and dry. Normal skin color. Normal skin turgor. Extremities: trace pitting lower extremity edema. No calf ttp Neuro: Oriented X 3. No motor deficit. No sensory deficit. Course Course Course Narrative: at this time possible infection suspected 1046pm will start on zosyn and admit the patient MDM - Nausea/Vomiting/Diarrhea MDM Narrative Medical decision making narrative: 71 yo female hx of CKD, enteritis, DM, obesity, chronic abdominal pain, SBO in past with ex lap and lysis of adhesions, IDDM, here with c/o nausea and vomiting after eating a ham sandwhich today at this time will need labs, EKG, CT scan for SBO, UA - possible enteritis, SBO, UTI - dispo per results and findings. Lab Data Result diagrams: 01/03/22 22:01 01/03/22 22:00 Labs: Lab Results 01/03/22 01/03/22 01/03/22 Range/Units 21:49 21:49 22:00 WBC (4.8-10.8) X10*3/uL RBC (4.20-5.50) X10*6/uL Hgb (12.0-16.0) g/dl Hct (37.0-47.0) % MCV (80.0-98.0) fL MCH (27.0-33.0) pg MCHC (31.0-35.0) g/dl RDW (11.0-16.0) % Plt Count (160-400) X10*3/uL MPV (9.4-12.3) fL Immature Gran % (Auto) (0.0-0.4) % Neut % (Auto) (45-73) % Lymph % (Auto) (20-40) % [place] % (Auto) (2-11) % Eos % (Auto) (0-4) % Baso % (Auto) (0-2) % Lymph # (Auto) (1.2-4.9) X10*3/uL [place] # (Auto) (0.1-1.2) X10*3/uL Eos # (Auto) (0.0-0.4) X10*3/uL Baso # (Auto) (0.0-0.2) X10*3/uL Abs Immat Gran (auto) (0.00-0.03) X10*3/uL Absolute Neuts (auto) (2.0-8.3) x10*3/uL Absolute Nucleated RBC (0.0-0.012) X10*3/uL Nucleated RBC % (auto) (0.0-0.2) /100WBC PT (9.9-13.0) SEC INR (0.9-1.1) VBG pH (7.32-7.43) VBG pCO2 mmHg VBG pO2 mmHg VBG HCO3 (22-26) mmol/L VBG O2 Saturation % VBG Base Excess mmol/L Sodium 137 (135-145) mmol/L Potassium 4.4 D (3.3-5.1) mmol/L Chloride 101 (96-108) mmol/L Carbon Dioxide 24 (22-29) mmol/L Anion Gap 16 (12-20) BUN 27 H D (9-16) mg/dL Creatinine 1.87 H (0.5-1.4) mg/dL Estim Creat Clear Calc 28.0 Estimated GFR 27 Random Glucose 202 H (60-115) mg/dL Lactic Acid (0.5-2.0) mmol/L Calcium 9.1 D (8.4-10.2) mg/dL Magnesium 1.9 (1.6-2.6) mg/dL Total Bilirubin 0.5 (0.0-1.0) mg/dL Direct Bilirubin 0.2 (0.0-0.5) mg/dL AST 16 (5-31) U/L ALT 15 (0-31) U/L Alkaline Phosphatase 41 (39-117) U/L Troponin I High Sens 4.5 (<3.5-17.0) ng/L B-Natriuretic Peptide < 10 (<100) pg/mL Total Protein 6.3 L (6.5-8.0) g/dL Albumin 3.7 (3.5-5.0) g/dL Lipase 17 (8-78) U/L COVID-19 (JESSIKA) Negative (Negative) COVID-19 Clin Com See Note 01/03/22 01/03/22 01/03/22 Range/Units 22:01 22:01 22:01 WBC 15.7 H (4.8-10.8) X10*3/uL RBC 4.08 L (4.20-5.50) X10*6/uL Hgb 11.1 L (12.0-16.0) g/dl Hct 34.6 L (37.0-47.0) % MCV 84.8 (80.0-98.0) fL MCH 27.2 (27.0-33.0) pg MCHC 32.1 (31.0-35.0) g/dl RDW 14.6 (11.0-16.0) % Plt Count 204 (160-400) X10*3/uL MPV 12.0 (9.4-12.3) fL Immature Gran % (Auto) 0.6 H (0.0-0.4) % Neut % (Auto) 79.5 H (45-73) % Lymph % (Auto) 11.6 L (20-40) % [place] % (Auto) 7.2 (2-11) % Eos % (Auto) 0.9 (0-4) % Baso % (Auto) 0.2 (0-2) % Lymph # (Auto) 1.8 (1.2-4.9) X10*3/uL [place] # (Auto) 1.1 (0.1-1.2) X10*3/uL Eos # (Auto) 0.1 (0.0-0.4) X10*3/uL Baso # (Auto) 0.0 (0.0-0.2) X10*3/uL Abs Immat Gran (auto) 0.09 H (0.00-0.03) X10*3/uL Absolute Neuts (auto) 12.5 H (2.0-8.3) x10*3/uL Absolute Nucleated RBC 0.000 (0.0-0.012) X10*3/uL Nucleated RBC % (auto) 0.0 (0.0-0.2) /100WBC PT 12.0 (9.9-13.0) SEC INR 1.1 (0.9-1.1) VBG pH (7.32-7.43) VBG pCO2 mmHg VBG pO2 mmHg VBG HCO3 (22-26) mmol/L VBG O2 Saturation % VBG Base Excess mmol/L Sodium (135-145) mmol/L Potassium (3.3-5.1) mmol/L Chloride (96-108) mmol/L Carbon Dioxide (22-29) mmol/L Anion Gap (12-20) BUN (9-16) mg/dL Creatinine (0.5-1.4) mg/dL Estim Creat Clear Calc Estimated GFR Random Glucose (60-115) mg/dL Lactic Acid 1.8 (0.5-2.0) mmol/L Calcium (8.4-10.2) mg/dL Magnesium (1.6-2.6) mg/dL Total Bilirubin (0.0-1.0) mg/dL Direct Bilirubin (0.0-0.5) mg/dL AST (5-31) U/L ALT (0-31) U/L Alkaline Phosphatase (39-117) U/L Troponin I High Sens (<3.5-17.0) ng/L B-Natriuretic Peptide (<100) pg/mL Total Protein (6.5-8.0) g/dL Albumin (3.5-5.0) g/dL Lipase (8-78) U/L COVID-19 (JESSIKA) (Negative) COVID-19 Clin Com 01/03/22 Range/Units 22:07 WBC (4.8-10.8) X10*3/uL RBC (4.20-5.50) X10*6/uL Hgb (12.0-16.0) g/dl Hct (37.0-47.0) % MCV (80.0-98.0) fL MCH (27.0-33.0) pg MCHC (31.0-35.0) g/dl RDW (11.0-16.0) % Plt Count (160-400) X10*3/uL MPV (9.4-12.3) fL Immature Gran % (Auto) (0.0-0.4) % Neut % (Auto) (45-73) % Lymph % (Auto) (20-40) % [place] % (Auto) (2-11) % Eos % (Auto) (0-4) % Baso % (Auto) (0-2) % Lymph # (Auto) (1.2-4.9) X10*3/uL [place] # (Auto) (0.1-1.2) X10*3/uL Eos # (Auto) (0.0-0.4) X10*3/uL Baso # (Auto) (0.0-0.2) X10*3/uL Abs Immat Gran (auto) (0.00-0.03) X10*3/uL Absolute Neuts (auto) (2.0-8.3) x10*3/uL Absolute Nucleated RBC (0.0-0.012) X10*3/uL Nucleated RBC % (auto) (0.0-0.2) /100WBC PT (9.9-13.0) SEC INR (0.9-1.1) VBG pH 7.46 H (7.32-7.43) VBG pCO2 31 mmHg VBG pO2 156 mmHg VBG HCO3 22 (22-26) mmol/L VBG O2 Saturation 99.0 % VBG Base Excess -0.2 mmol/L Sodium (135-145) mmol/L Potassium (3.3-5.1) mmol/L Chloride (96-108) mmol/L Carbon Dioxide (22-29) mmol/L Anion Gap (12-20) BUN (9-16) mg/dL Creatinine (0.5-1.4) mg/dL Estim Creat Clear Calc Estimated GFR Random Glucose (60-115) mg/dL Lactic Acid (0.5-2.0) mmol/L Calcium (8.4-10.2) mg/dL Magnesium (1.6-2.6) mg/dL Total Bilirubin (0.0-1.0) mg/dL Direct Bilirubin (0.0-0.5) mg/dL AST (5-31) U/L ALT (0-31) U/L Alkaline Phosphatase (39-117) U/L Troponin I High Sens (<3.5-17.0) ng/L B-Natriuretic Peptide (<100) pg/mL Total Protein (6.5-8.0) g/dL Albumin (3.5-5.0) g/dL Lipase (8-78) U/L COVID-19 (JESSIKA) (Negative) COVID-19 Clin Com ECG Data Attestation: I personally reviewed and interpreted this ECG as follows: ECG interpretation date: 01/03/22 ECG interpretation time: 20:39 Interpretation: Rate: 85 Rhythm: NSR [place]: normal Normal P waves. Normal MELISSA. Normal QRS complex. ST T wave : no EDWIN, inverted V1-V2 qTC: normal prior studies: no change from prior The study has been interpreted contemporaneously by me. . Discharge Plan Discharge Clinical Impression: AGUSTIN (acute kidney injury) Leukocytosis Qualifiers: Leukocytosis type: unspecified Qualified Code(s): D72.829 - Elevated white blood cell count, unspecified Abdominal pain Qualifiers: Abdominal location: unspecified location Qualified Code(s): R10.9 - Unspecified abdominal pain Vomiting Qualifiers: Vomiting type: unspecified Nausea presence: with nausea Qualified Code(s): R11.2 - Nausea with vomiting, unspecified Patient Disposition: Admitted As Inpatient Prescriptions: No Action (DME) lancets 28 gauge misc See Rx Instructions topical TID Qty: 100 3RF Rx Instructions: once a day (DME) Depend Underwear For Women S-[place] [facility] [place] Rx Instructions .ROUTE .MEDSUPPLY Qty: 64 6RF Rx Instructions: 2 times a day as needed (DME) pen needle, diabetic [BD Ultra-Fine Mini Pen Needle] 31 gauge x 3/16 needle See Rx Instructions .Route Qty: 100 2RF Rx Instructions: Use to administer insulin twice daily (DME) FreeStyle Lite Strips Strip See Rx Instructions .Route Rx Instructions: Use to check blood sugar twice daily and when having symptoms of hypo/hyperglycemia (DME) pen needle, diabetic 31 gauge x 3/16 needle See Rx Instructions subcut TID Qty: 100 1RF Rx Instructions: As directed ropinirole 2 mg tablet 2 mg PO BID 90 Days Qty: 180 1RF hydrocortisone 2.5 % cream 1 appl topical BID PRN (Reason: skin irritation) Qty: 20 0RF montelukast 10 mg tablet 10 mg PO DAILY Qty: 90 1RF amlodipine [Norvasc] 5 mg tablet 5 mg PO DAILY 30 Days Qty: 90 0RF atorvastatin 80 mg tablet 80 mg PO DAILY 90 Days Qty: 90 0RF (DME) AeroEclipse II Nebulizer Misc See Rx Instructions .ROUTE .MEDSUPPLY Qty: 1 0RF Rx Instructions: As directed hydroxyzine pamoate 25 mg capsule 1 cap PO BID gabapentin 300 mg capsule 300 mg PO DAILY Levemir FlexTouch U-100 Insuln 100 unit/mL (3 mL) insulin pen 20 unit subcut DAILY lisinopril 5 mg tablet 1 tab PO DAILY Hold Instructions: Resume on 12/10/21. trazodone 100 mg tablet 200 mg PO BEDTIME aspirin 81 mg Tablet,Chewable 81 mg PO DAILY docusate sodium [Colace] 100 mg capsule 100 mg PO BID Qty: 60 2RF gabapentin 300 mg capsule 900 mg PO BEDTIME Rx Instructions: pt takes 1 300mg in am and pm and 3 and bedtime acyclovir [Zovirax] 5 % ointment 1 appl topical 6XD 7 Days Qty: 5 0RF bupropion HCl 150 mg tablet extended release 24 hr 150 mg PO DAILY (DME) oxygen-air delivery systems Device See Rx Instructions .ROUTE .MEDSUPPLY Qty: 1 Rx Instructions: As directed albuterol sulfate [ProAir HFA] 90 mcg/actuation HFA aerosol inhaler 2 puff inhalation Q4-6H PRN (Reason: shortness of breath or wheezing) 30 Days Qty: 8.5 2RF albuterol sulfate 1.25 mg/3 mL solution for nebulization 2.5 mg inhalation Q4-6H MDD copd PRN (Reason: copd) 30 Days Qty: 90 2RF
[2022-01-03 20:28] VITALS: BP 112/32; PULSE 85; RESP 18; TEMP 36.9; O2SAT 100; BMI 39.9
--- NOTE | 2022-01-03 20:43 | PC.NURSE ---
PATIENT CAME IN WITH NAUSEA /VOMITING ,PATIENT WAS CLEAN UP AND CHANGE INTO HOSPITAL ATTIRE .
[2022-01-03 22:00] VITALS: BP 97/54; PULSE 71; RESP 16; TEMP 36.9; O2SAT 98
[2022-01-03 22:05] LABS: Venous Blood Gas Refer to POC result
[2022-01-03 22:05] LABS: MANUAL DIFF FLAG NO
[2022-01-03 22:07] LABS: Basophils Percent Auto 0.2 % (0-2); Eosinophils Absolute Auto 0.1 X10*3/uL (0.0-0.4); Eosinophils Percent Auto 0.9 % (0-4); Hematocrit 34.6 % (37.0-47.0); Hemoglobin 11.1 g/dl (12.0-16.0); Imm Gran Abs Auto 0.09 X10*3/uL (0.00-0.03); Imm Gran Pct Auto 0.6 % (0.0-0.4); Lymphocytes Absolute Auto 1.8 X10*3/uL (1.2-4.9); Lymphocytes Percent Auto 11.6 % (20-40); Mean Corpuscular HGB Conc 32.1 g/dl (31.0-35.0); Mean Corpuscular Hemoglobin 27.2 pg (27.0-33.0); Mean Corpuscular Volume 84.8 fL (80.0-98.0); Monocytes Absolute Auto 1.1 X10*3/uL (0.1-1.2); Monocytes Percent Auto 7.2 % (2-11); Neutrophils Absolute Auto 12.5 x10*3/uL (2.0-8.3); Neutrophils Percent Auto 79.5 % (45-73); Platelet Count 204 X10*3/uL (160-400); Red Blood Count 4.08 X10*6/uL (4.20-5.50); Red Cell Distribution Width 14.6 % (11.0-16.0); White Blood Count 15.7 X10*3/uL (4.8-10.8)
[2022-01-03 22:09] LABS: COVID-19 Test Negative (Negative); IDNOW Serial# 08D9AD1C
[2022-01-03 22:13] LABS: INTERNATIONAL NORM RATIO 1.1 (0.9-1.1)
[2022-01-03 22:14] LABS: B Type Natriuretic Peptide < 10 pg/mL (<100); Troponin-I High Sensitivity 4.5 ng/L (<3.5-17.0)
[2022-01-03 22:14] LABS: VBG Base Excess -0.2 mmol/L; VBG HCO3 22 mmol/L (22-26); VBG pCO2 31 mmHg; VBG pH 7.46 (7.32-7.43); VBG pO2 156 mmHg
[2022-01-03 22:19] LABS: Lactic Acid 1.8 mmol/L (0.5-2.0)
[2022-01-03 22:35] LABS: Alanine Aminotransferase 15 U/L (0-31); Albumin Level 3.7 g/dL (3.5-5.0); Alkaline Phosphatase 41 U/L (39-117); Anion Gap 16 (12-20); Aspartate Amino Transferase 16 U/L (5-31); Bilirubin Direct 0.2 mg/dL (0.0-0.5); Bilirubin Total 0.5 mg/dL (0.0-1.0); Blood Urea Nitrogen 27 mg/dL (9-16); Calcium 9.1 mg/dL (8.4-10.2); Carbon Dioxide 24 mmol/L (22-29); Chloride 101 mmol/L (96-108); Estimated Glomerular Filt Rate 27; Glucose Random 202 mg/dL (60-115); Lipase 17 U/L (8-78); Magnesium 1.9 mg/dL (1.6-2.6); Potassium 4.4 mmol/L (3.3-5.1); Sodium 137 mmol/L (135-145); Total Protein 6.3 g/dL (6.5-8.0)
[2022-01-03] MEDS: Piperacillin Sodium/Tazobactam 3.375 GM in 0.9 % Sodium Chloride 50 ML IV (23:44)
[2022-01-03] MEDS: 0.9 % Sodium Chloride 500 ML IV (23:44)
[2022-01-03 23:45] VITALS: BP 130/56; PULSE 79; RESP 16; TEMP 36.7; O2SAT 98
[2022-01-03 23:46] VITALS: BP 121/40; PULSE 79; RESP 20; TEMP 36.6; O2SAT 98
--- NOTE | 2022-01-03 23:46 | PM.IMHP ---
History of Present Illness Date of Service: 01/03/22 Chief Complaint: weakness This is a 71-year-old female with extensive past medical history that includes anemia, CKD, COPD, diabetes, GERD, history of diverticulitis, HLD, depression anxiety, restless leg syndrome, among others who presents to the hospital with complaints of generalized weakness. . Shunt reports that for the past 1 week she has had difficulty with increased worsening weakness, she has been feeling dizzy, she went use the bathroom today, sat in the toilet, and was unable to get up therefore EMS was called. Patient reports some nausea with no vomiting, decreased oral intake, reports that she has only been drinking some juice and very minimal water intake, she has had poor appetite, she reports chills with no fever, reports a chronic cough that has not worsened, reports no worsening shortness of breath or sputum production. Reports no diarrhea constipation. Reports that her urine has been decrease, has decreased urine output as well as dysuria. Patient reports no lower extremity edema. On arrival to the ED patient hemodynamically stable no significant abnormal vitals. Of note patient uses 2 L of oxygen at home chronically, currently satting in the high 90s. Labs are significant for WBC count of 15.7, hemoglobin of 11.1 which is around her baseline, BUN of 27, creatinine of 1.87 with a baseline of around 1.2-1.5, LDH of 254, lactic acid normal, UA positive for leukocyte Estrace and WBC, Abdominal pelvic CT shows concern for possible diverticulitis versus colitis infectious versus noninfectious etiology. This appears improved in the appearance of bowel adjacent to the abdominal wall on the left but there are felt to be a new area of concern in the region and this is felt to be involving large bowel in the region of the splenic flexure, diverticulitis versus colitis. Patient will be admitted for further management Review of Systems Review of Systems: Yes all other systems are reviewed and are negative [facility] Medical History Anemia CKD (chronic kidney disease) COPD exacerbation CPAP (continuous positive airway pressure) dependence Diabetes Elevated cholesterol GERD (gastroesophageal reflux disease) History of adrenal adenoma History of diverticulitis History of restless legs syndrome Hx SBO Hyperlipidemia Osteoarthritis of left knee Osteochondroma of left femur Family History Father HTN (hypertension) Diabetes mellitus Mother HTN (hypertension) Liver cancer Surgical History H/O colonoscopy H/O excision of mass H/O exploratory laparotomy History of appendectomy History of arthroscopy of left knee History of cholecystectomy History of hysterectomy History of oophorectomy History of partial colectomy History of surgery Hx of cataract extraction Social History 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: Family 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 Other:: EX Housing: House Are you a primary day care supervisor to a significant other at home: No Do you presently have visiting nurse or other home services: No Alcohol intake: never Patient Tobacco Use Status: Never used Tobacco e-Cigarette/Vaping Use: Never Used Second Hand Smoke Exposure: No Advance Directives: Yes Advance Directives on File: Yes Advance Directives Date on File: 07/08/21 service: No Current occupational status: retired Cognitive needs: No Hearing needs: No Vision needs: No Meds Allergies Allergy/AdvReac Type Severity Reaction Status Date / Time adhesive tape [ADHESIVE TAPE] Allergy Intermediate RASH Verified 12/30/21 16:03 trimethobenzamide Allergy Mild NAUSEA Verified 12/30/21 16:03 [From TIGAN] environmental Allergy Intermediate Nasal Uncoded 12/30/21 16:03 congestion Active Medications: Current Medications Pharmacy Consult (Consult Rx Perform Med Rec) 1 each MISCELLANE ONCE PRN PRN Reason: Consult order Home Medications Medication Instructions Recorded Confirmed Last Taken Type bupropion HCl 150 mg 24 hr tablet, 150 mg PO DAILY 04/25/20 11/29/21 11/22/21 History extended release oxygen-air delivery systems ##1 04/25/20 11/29/21 11/22/21 History gabapentin 300 mg capsule 900 mg PO BEDTIME 05/13/21 11/29/21 11/22/21 History gabapentin 300 mg capsule 300 mg PO DAILY 06/29/21 11/29/21 11/22/21 History hydroxyzine pamoate 25 mg capsule 1 cap PO BID 06/29/21 11/29/21 11/22/21 History blood sugar diagnostic (FreeStyle 08/09/21 11/29/21 11/22/21 History Lite Strips) insulin detemir U-100 100 unit/mL 20 unit subcut DAILY 08/12/21 11/29/21 11/22/21 History (3 mL) subcutaneous pen (Levemir FlexTouch U-100 Insulin) aspirin 81 mg chewable tablet 81 mg PO DAILY 10/01/21 11/29/21 11/22/21 History lisinopril 5 mg tablet 1 tab PO DAILY 10/01/21 11/29/21 11/22/21 History trazodone 100 mg tablet 200 mg PO BEDTIME 10/01/21 11/29/21 11/22/21 History Physical Exam Vital Signs and Narrative: Vital Signs: Last Vital Signs Temp 98.4 F 01/03/22 22:00 Pulse 71 01/03/22 22:00 Resp 16 01/03/22 22:00 BP 97/54 L 01/03/22 22:00 Pulse Ox 98 01/03/22 22:00 O2 Del Method 01/03/22 22:00 Oxygen Flow Rate 4 01/03/22 20:28 BMI result Body Mass Index 39.9 Const: General: cooperative and no acute distress Orientation/consciousness: patient oriented x3 Eyes: General: appearance normal, both eyes and all related structures Pupils: Equal, round and reactive pupils present Resp: Effort & Inspection: normal respiratory effort Auscultation: clear to auscultation bilaterally Cardio: Rate: regular rate Rhythm: regular rhythm GI: Other: Abdomen is soft, mildly tender on deep palpation, no rebound or guarding Palpation (GI): Soft to palpation Auscultation: normal bowel sounds Skin: General skin exam: no rashes or lesions noted Neuro: General: patient oriented x3 Cranial nerves: Yes Equal, round and reactive pupils present Cognition (Neuro): normal cognition Extrem: Other: Has significant pain in the lower extremities on palpation, around the knee, behind calves bilaterally General: Yes normal to inspection and Yes no pedal edema Results Labs CBC and Chem 7: 01/03/22 22:01 01/03/22 22:00 Labs: Laboratory Results - last 24 hr 01/03/22 01/03/22 01/03/22 21:49 21:49 22:00 MCV MCH MCHC RDW Plt Count MPV Immature Gran % (Auto) Neut % (Auto) Lymph % (Auto) [place] % (Auto) Eos % (Auto) Baso % (Auto) Lymph # (Auto) [place] # (Auto) Eos # (Auto) Baso # (Auto) Abs Immat Gran (auto) Absolute Neuts (auto) Absolute Nucleated RBC Nucleated RBC % (auto) PT INR VBG pH VBG pCO2 VBG pO2 VBG HCO3 VBG O2 Saturation VBG Base Excess Anion Gap 16 Estim Creat Clear Calc 28.0 Estimated GFR 27 Random Glucose 202 H Lactic Acid Calcium 9.1 D Magnesium 1.9 Total Bilirubin 0.5 Direct Bilirubin 0.2 AST 16 ALT 15 Alkaline Phosphatase 41 Troponin I High Sens 4.5 B-Natriuretic Peptide < 10 Total Protein 6.3 L Albumin 3.7 Lipase 17 COVID-19 (JESSIKA) Negative COVID-19 Clin Com See Note 01/03/22 01/03/22 01/03/22 22:01 22:01 22:01 MCV 84.8 MCH 27.2 MCHC 32.1 RDW 14.6 Plt Count 204 MPV 12.0 Immature Gran % (Auto) 0.6 H Neut % (Auto) 79.5 H Lymph % (Auto) 11.6 L [place] % (Auto) 7.2 Eos % (Auto) 0.9 Baso % (Auto) 0.2 Lymph # (Auto) 1.8 [place] # (Auto) 1.1 Eos # (Auto) 0.1 Baso # (Auto) 0.0 Abs Immat Gran (auto) 0.09 H Absolute Neuts (auto) 12.5 H Absolute Nucleated RBC 0.000 Nucleated RBC % (auto) 0.0 PT 12.0 INR 1.1 VBG pH VBG pCO2 VBG pO2 VBG HCO3 VBG O2 Saturation VBG Base Excess Anion Gap Estim Creat Clear Calc Estimated GFR Random Glucose Lactic Acid 1.8 Calcium Magnesium Total Bilirubin Direct Bilirubin AST ALT Alkaline Phosphatase Troponin I High Sens B-Natriuretic Peptide Total Protein Albumin Lipase COVID-19 (JESSIKA) COVID-19 Clin Com 01/03/22 22:07 MCV MCH MCHC RDW Plt Count MPV Immature Gran % (Auto) Neut % (Auto) Lymph % (Auto) [place] % (Auto) Eos % (Auto) Baso % (Auto) Lymph # (Auto) [place] # (Auto) Eos # (Auto) Baso # (Auto) Abs Immat Gran (auto) Absolute Neuts (auto) Absolute Nucleated RBC Nucleated RBC % (auto) PT INR VBG pH 7.46 H VBG pCO2 31 VBG pO2 156 VBG HCO3 22 VBG O2 Saturation 99.0 VBG Base Excess -0.2 Anion Gap Estim Creat Clear Calc Estimated GFR Random Glucose Lactic Acid Calcium Magnesium Total Bilirubin Direct Bilirubin AST ALT Alkaline Phosphatase Troponin I High Sens B-Natriuretic Peptide Total Protein Albumin Lipase COVID-19 (JESSIKA) COVID-19 Clin Com Imaging Radiologist's Impressions: Impressions Abdomen/Pelvis CT 01/03/22 21:03 IMPRESSION: While there is overall improvement in the appearance of bowel adjacent the abdominal wall on the left there is felt to be a new area of concern in the region and this is felt to be involving large bowel in the region of the splenic flexure. There are diverticular in the region therefore this could represent diverticulitis. Colitis infectious versus noninfectious focal would also be in the differential and ischemia again cannot be excluded. In addition air densities are seen in the region and while the majority of this air density is felt to be within bowel loops I cannot exclude some extraluminal air density and some of this does appear to be associated with the abdominal wall. Correlation needs to be made clinically. Abscess in this region cannot be excluded Motion does limit this exam and therefore detailed evaluation is limited. Sclerotic lesion at D11 which is increasing in size compared to previous studies. Certainly sclerotic metastatic metastatic focus cannot be excluded though no other lesion is seen here. Correlation recommended clinically. Recommend pre and postcontrast MRI to further evaluate and/or bone scan Fleischner guidelines were followed. Assessment and Plan (1) AGUSTIN (acute kidney injury): Status: Acute (2) Urinary tract infection: Status: Acute (3) Leukocytosis: Qualifiers: Leukocytosis type: unspecified Qualified Code(s): D72.829 - Elevated white blood cell count, unspecified Status: Acute (4) Colitis: Status: Acute Plan 71-year-old female with past medical history as above presents to the hospital with generalized weakness found to have UTI as well as AGUSTIN # UTI - likely the cause of her weakness - UA positive for leukocyte Estrace and WBC - will treat with antibiotics - follow cultures # AGUSTIN - likely prerenal secondary to dehydration as well as UTI - IV fluids - follow BMP # colitis versus diverticulitis - patient has abnormal findings on abdominal CT - abdominal exam shows no rebound or guarding, mild tenderness on deep palpation - has no lactic acidosis but mildly elevated LDH - will treat with IV antibiotics for colitis/diverticulitis - GI consulted - will keep NPO right now until GI consult and further recommendation # leukocytosis - likely multifactorial in the setting of UTI as well as possible colitis - treat above - follow CBC # diabetes - low-dose sliding scale insulin - diabetic diet # hypertension - stable will continue amlodipine, hold lisinopril in the setting of AGUSTIN # at this time pending further med review, will continue all her other medications once reviewed Given AGUSTIN, further evaluation for the diverticulitis versus colitis, as well as requirement for IV fluid, patient will need a minimum 2 night hospital stay for further management and monitoring Quality Stroke Does the patient have a stroke diagnosis?: No VTE Prior VTE?: No VTE Risk Level:: Medical - moderate - high VTE Device Contraindication: Treatment Not Indicated VTE Drug Contraindication: N/A - Med Ordered
[2022-01-03 23:47] LABS: Lactate Dehydrogenase 254 U/L (122-220)
--- NOTE | 2022-01-03 23:47 | PC.NURSE ---
PATIENT WAS CHECK ON AND REPOSITION ,WAS GIVEN A PITCHER OF WATER AT BEDSIDE ,
[2022-01-03 23:59] LABS: Color Urine YELLOW; Glucose Urine UA NEG (NEG); Leukocyte Esterase Urine 1+ (NEG); Nitrite Urine NEG (NEG); Specific Gravity - Urine 1.025 (1.005-1.025); UACC Culture Trigger YES; Urine Blood 2+ (NEG); Urine Ketones NEG (NEG); Urine Protein NEG (NEG-TRACE)
[2022-01-04] VITALS (9 sets, daily range): BP systolic 95–135; BP diastolic 45–62; PULSE 60–88; RESP 12–19; TEMP 36.6–36.8; O2SAT 93–100
[2022-01-04] LABS: Appearance Urine HAZY
[2022-01-04 00:09] LABS: Bacteria Urine 4+ /LPF; Squamous Epithelial Cell Urine 1+ /LPF; WBC Urine 30-49 /HPF (0-4)
[2022-01-04] MEDS: Lactated Ringers 1,000 ML 100 ML IVCONT ×3 (01:08→23:44)
[2022-01-04] MEDS: 0.9 % Sodium Chloride Flush 3 ML SYRINGE IVFLUSH ×3 (01:09→17:46)
[2022-01-04] MEDS: Heparin Sodium,Porcine 5,000 UNIT/ML VIAL 5000 UNIT SUBCUT ×3 (01:13→23:43)
[2022-01-04] MEDS: metroNIDAZOLE/NS 500 MG/100 ML PIGGYBACK 100 MG IV ×4 (01:13→23:44)
[2022-01-04] MEDS: levoFLOXacin/D5W 750 MG/150 ML PIGGYBACK 100 MG IV (02:12)
[2022-01-04] MEDS: oxyCODONE HCl Immed Release 5 MG TABLET PO (02:12)
[2022-01-04] MEDS: Lactated Ringers 1,000 ML 999 ML IV (04:01)
[2022-01-04 07:01] LABS: MANUAL DIFF FLAG NO
[2022-01-04 07:04] LABS: Glucose, Whole Blood 125 mg/dL (60-115)
[2022-01-04 07:08] LABS: Basophils Percent Auto 0.3 % (0-2); Eosinophils Absolute Auto 0.2 X10*3/uL (0.0-0.4); Eosinophils Percent Auto 1.4 % (0-4); Hematocrit 37.7 % (37.0-47.0); Hemoglobin 11.9 g/dl (12.0-16.0); Imm Gran Abs Auto 0.05 X10*3/uL (0.00-0.03); Imm Gran Pct Auto 0.5 % (0.0-0.4); Lymphocytes Absolute Auto 2.6 X10*3/uL (1.2-4.9); Lymphocytes Percent Auto 23.6 % (20-40); Mean Corpuscular HGB Conc 31.6 g/dl (31.0-35.0); Mean Corpuscular Hemoglobin 27.2 pg (27.0-33.0); Mean Corpuscular Volume 86.3 fL (80.0-98.0); Mean Platelet Volume 12.2 fL (9.4-12.3); Monocytes Absolute Auto 0.8 X10*3/uL (0.1-1.2); Monocytes Percent Auto 7.6 % (2-11); Neutrophils Absolute Auto 7.4 x10*3/uL (2.0-8.3); Neutrophils Percent Auto 66.6 % (45-73); Platelet Count 201 X10*3/uL (160-400); Red Blood Count 4.37 X10*6/uL (4.20-5.50); Red Cell Distribution Width 14.6 % (11.0-16.0); White Blood Count 11.1 X10*3/uL (4.8-10.8)
[2022-01-04] MEDS: Acetaminophen 325 MG TABLET 650 MG PO (07:27)
[2022-01-04 07:35] LABS: Anion Gap 14 (12-20); Blood Urea Nitrogen 25 mg/dL (9-16); Calcium 9.1 mg/dL (8.4-10.2); Carbon Dioxide 26 mmol/L (22-29); Chloride 104 mmol/L (96-108); Creatinine Clr Calc Pharmacy 31.7; Estimated Glomerular Filt Rate 31; Glucose Random 134 mg/dL (60-115); Potassium 4.3 mmol/L (3.3-5.1); Sodium 140 mmol/L (135-145)
--- NOTE | 2022-01-04 09:20 | PHA.MEDREC ---
Pharmacy Consult ? Medication Reconciliation Pharmacy has completed the medication reconciliation. Pt stated she was here in September and takes all of the medications she was discharged on, went over med list and confirmed doses and timing.
--- NOTE | 2022-01-04 10:37 | P.CNGI_ITS ---
History of Present Illness Data of Consult Service Date: 01/04/22 Requesting physician: Kaleb Roman Primary Care Provider: Shelbi Perez MD [facility] Reason for consult: abnormal CT scan of the colon 71 YF with extensive PMH that includes anemia, CKD, COPD (on home O2 of 2L/m by [place]), diabetes, GERD, history of diverticulitis, HLD, depression anxiety, restless leg syndrome. Pt has had multiple abdominal surgeries - sigmoid resection for diverticulitis, appendectomy, cholecystectomy and an ex lap in 2018 for SBO with lysis of adhesions done at that time. Pt came [place] [facility] on 01/03/22 with generalized weakness. .? She reported that she has noted wosening dizziness and weakness for the past 1 week. Pt was unable to get up from the toilet seat yesterday and EMS was called.? She notes poor appetite with decreased oral intake with nausea with no vomiting, Pt has been drinking some juice with minimal water intake She complained of chills (no fever), chronic cough and denied any worsening of chronic shortness of breath or sputum production.? Pt denied diarrhea or constipation.? Reports that her urine has been decrease, has decreased urine output as well as dysuria.? Patient reports no lower extremity edema.? On arrival to the ED patient hemodynamically stable no significant abnormal vitals.? Of note patient uses 2 L of oxygen at home chronically, currently satting in the high 90s. Pt complains of poor appetite and lower abdominal pain x 1 week. She notes nausea on waking up - resolves after she has breakfast. She only ate when she felt like - mostly fish, pork chops and steak Patient denies symptoms of heartburn, dysphagia. Pt has chronic constipation and takes colace twice daily with good results. She has a BM every morning followed by 2 episodes of loose stools with urgency and sometimes fecal incontinence. She notes some abdominal cramps which resolve after she has a BM. BM have been brownish in color without black stools or rectal bleeding. Patient has DM, CKD and COPD (on home O2) Denies being on chronic anticoagulation. pt is and has 2 children. She worked at [employer] at [facility] [place] 15 yrs and left due to disabilty related to asthma/COPD. She denies smoking or ETOH abuse. Patient denies known family history of colon cancer or other GI malignancies. Son has a colostomy ? due to colon polyps. Dad had colitis. Labs are significant for WBC count of 15.7, hemoglobin of 11.1 which is around her baseline, BUN of 27, creatinine of 1.87 with a baseline of around 1.2-1.5, LDH of 254, lactic acid normal, UA positive for leukocyte Estrace and WBC, Pt was admitted and started on IV antiobiotics (levofloxacin and metronidazole). IMAGING STUDIES: 01/03/[address] SCAN SHOWED: While there is overall improvement in the appearance of bowel adjacent the abdominal wall on the left there is felt to be a new area of concern in the region and this is felt to be involving large bowel in the region of the splenic flexure. There are diverticular in the region therefore this could represent diverticulitis. Colitis infectious versus noninfectious focal would also be in the differential and ischemia again cannot be excluded. In addition air densities are seen in the region and while the majority of this air density is felt to be within bowel loops I cannot exclude some extraluminal air density and some of this does appear to be associated with the abdominal wall. Correlation needs to be made clinically. Abscess in this region cannot be excluded ? Motion does limit this exam and therefore detailed evaluation is limited. PAST EGD/COLONOSCOPY: 10/2018 PT HAD A SCREENING COLONOSCOPY: Cecum ? A 3-4 mm diminutive polyp removed by cold biopsy Ascending Colon ? Three 3-4 mm sessile polyps removed by cold biopsy and moderate diverticulosis. A 4th 1 cms sessile polyp removed with hot snare and polypectomy site treated with cautery using the snare tip. Sigmoid Colon ? A 12-15 mm sessile polyp at 35 cms removed with a hot snare and moderate diverticulosis. Normal end to end anastomosis seen at 10 cms. Ano-rectum - Moderate internal hemorrhoids Colonoscopy Findings: Six adenomatous polyps removed Normal end to end colon anastomosis seen at 10 cms. Moderate diverticulosis seen in the entire colon Moderate hemorrhoids on retroflexed exam. Plan: Repeat Colonoscopy interval based on path results ? in 3-5 years if polyps are adenomatous and 10 years if polyps are hyperplastic. Review of Systems Review of Systems: Yes all other systems are reviewed and are negative Constitutional: Constitutional: Reports fatigue, Denies fever(s) and Reports poor appetite Cardiovascular: Cardiovascular: Denies chest pain and Reports dyspnea (due to COPD) Respiratory: Respiratory: Reports dyspnea (due to COPD) Gastrointestinal: Gastrointestinal: Reports abdominal pain, Reports constipation and Reports diarrhea Endocrine: Endocrine: Reports fatigue [facility] Past Medical History Medical History Anemia CKD (chronic kidney disease) COPD exacerbation CPAP (continuous positive airway pressure) dependence Diabetes Elevated cholesterol GERD (gastroesophageal reflux disease) History of adrenal adenoma History of diverticulitis History of restless legs syndrome Hx SBO Hyperlipidemia Osteoarthritis of left knee Osteochondroma of left femur Family History Family History Father HTN (hypertension) Diabetes mellitus Mother HTN (hypertension) Liver cancer Surgical History Surgical History H/O colonoscopy H/O excision of mass H/O exploratory laparotomy History of appendectomy History of arthroscopy of left knee History of cholecystectomy History of hysterectomy History of oophorectomy History of partial colectomy History of surgery Hx of cataract extraction Social History Social History 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: Other 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 Other:: EX Housing: Apartment Are you a primary patient care provider to a significant other at home: No Do you presently have visiting nurse or other home services: No Alcohol intake: never Patient Tobacco Use Status: Never used Tobacco e-Cigarette/Vaping Use: Never Used Second Hand Smoke Exposure: No Advance Directives Date on File: 07/08/21 service: No Current occupational status: retired Cognitive needs: No Hearing needs: No Vision needs: No Meds Allergies Allergy/AdvReac Type Severity Reaction Status Date / Time adhesive tape [ADHESIVE TAPE] Allergy Intermediate RASH Verified 12/30/21 16:03 trimethobenzamide Allergy Mild NAUSEA Verified 12/30/21 16:03 [From TIGAN] environmental Allergy Intermediate Nasal Uncoded 12/30/21 16:03 congestion Active Medications: Current Medications Acetaminophen (Acetaminophen 325 Mg Tablet) 650 mg PO Q6H PRN PRN Reason: Pain, Mild (Pain Scale 1-3) Last Admin: 01/04/22 07:27 Dose: 650 mg Albuterol/Ipratropium (Albuterol/Iprat 2.5/0.5mg 3 Ml Ampul.Neb) 3 ml INHALE RQ4H PRN PRN Reason: Shortness of Breath/Wheezing Dextrose (Dextrose 50 % 25 Gm/50 Ml Syringe) 25 gm IVPUSH Q15M PRN; Protocol PRN Reason: per Hypoglycemia Standing Ord. Docusate Sodium (Docusate Sodium 100 Mg Capsule) 100 mg PO DAILY PRN PRN Reason: Constipation Glucose (Glucose Gel 15 Gm Gel..Gram.) 15 gm PO Q15M PRN; Protocol PRN Reason: per Hypoglycemia Standing Ord. Heparin Sodium (Porcine) (Heparin Sodium,Porcine 5,000 Unit/Ml Vial) 5,000 unit SUBCUT Q12H [facility] Last Admin: 01/04/22 01:13 Dose: 5,000 unit Lactated Ringer's (Lr) 1,000 mls @ 100 mls/hr IVCONT .Q10H [facility] Last Admin: 01/04/22 08:19 Dose: 100 mls/hr Levofloxacin (Levaquin) 750 mg in 150 mls @ 100 mls/hr IV Q48H [facility] Metronidazole (Flagyl) 500 mg in 100 mls @ 100 mls/hr IV Q8H [facility] Last Admin: 01/04/22 07:50 Dose: 100 mls/hr Insulin Human Lispro (Insulin Lispro 100 Unit/Ml 3 Ml Vial) 0 unit SUBCUT QIDACHS [facility]; Protocol Last Admin: 01/04/22 07:09 Dose: Not Given Ondansetron HCl (Ondansetron Hcl 4 Mg/2 Ml Vial) 4 mg IVPUSH Q8H PRN PRN Reason: Nausea and Vomiting Pharmacy Consult (Consult Rx Perform Med Rec) 1 each MISCELLANE ONCE PRN PRN Reason: Consult order Sodium Chloride (0.9 % Sodium Chloride Flush 3 Ml Syringe) 3 ml IVFLUSH QSHIFT [facility] Last Admin: 01/04/22 07:51 Dose: 3 ml Home Medications Medication Instructions Recorded Confirmed Last Taken Type bupropion HCl 150 mg 24 hr tablet, 150 mg PO DAILY 04/25/20 01/04/22 01/03/22 History extended release oxygen-air delivery systems ##1 04/25/20 11/29/21 11/22/21 History gabapentin 300 mg capsule 900 mg PO BEDTIME 05/13/21 01/04/22 11/22/21 History gabapentin 300 mg capsule 300 mg PO DAILY 06/29/21 01/04/2201/03/22 History hydroxyzine pamoate 25 mg capsule 1 cap PO BID 06/29/21 01/04/22 01/03/22 History blood sugar diagnostic (FreeStyle 08/09/21 11/29/21 11/22/21 History Lite Strips) insulin detemir U-100 100 unit/mL 20 unit subcut DAILY 08/12/21 01/04/22 2 History (3 mL) subcutaneous pen (Levemir FlexTouch U-100 Insulin) aspirin 81 mg chewable tablet 81 mg PO DAILY 10/01/21 01/04/22 01/03/22 History lisinopril 5 mg tablet 1 tab PO DAILY 10/01/21 01/04/22 01/03/22 History trazodone 100 mg tablet 200 mg PO BEDTIME 10/01/21 01/04/22 11/22/21 History cholecalciferol (vitamin D3) 25 25 mcg PO DAILY 01/04/22 01/04/22 01/03/22 History mcg (1,000 unit) capsule furosemide 20 mg tablet 1 tab PO Q OTHER DAY edema 01/04/22 01/04/22 01/02/22 History Physical Exam Vital Signs: Vital Signs: Last Vital Signs Temp 97.9 F 01/04/22 02:41 Pulse 67 01/04/22 06:44 Resp 13 01/04/22 06:44 BP 118/58 L 01/04/22 06:44 Pulse Ox 100 01/04/22 06:44 O2 Del Method 01/04/22 06:44 O2 Flow Rate 2 01/04/22 06:44 Oxygen Flow Rate 4 01/03/22 20:28 BMI result Body Mass Index 39.9 Const: General: no acute distress Nutritional Appearance: obese Orientation/consciousness: patient oriented x3 Limitations: no limitations HEENT: Head: Yes normal to inspection Ears: hearing grossly normal bilaterally Eyes: Sclerae: sclerae normal Pupils: Equal, round and reactive pupils present Neck: Neck: Yes normal visual inspection Chest: Chest palpation & inspection: normal inspection of the chest Resp: Effort & Inspection: normal respiratory effort Auscultation: clear to auscultation bilaterally Cardio: Palpation: normal PMI Rate: regular rate Rhythm: regular rhythm Heart sounds: S1 normal heart sound present, S2 normal heart sound present and no murmurs GI: Inspection: Yes obesity and Yes scar (healed mid line scar of past abdominal surgeries) Palpation (GI): Soft to palpation, Tenderness to palpation present (GI) (Mild to moderate tenderness in the RLQ and LUQ) and No hepatosplenomegaly present Auscultation: normal bowel sounds Rectal Exam - Female: deferred Skin: General skin exam: no rashes or lesions noted Neuro: General: patient oriented x3, gait normal and moves all extremities Cranial nerves: Yes Equal, round and reactive pupils present Psych: Appearance: grossly normal Mental Status: mental status grossly normal Results Labs CBC & Chem 7: 01/06/22 06:09 01/08/22 09:59 Labs: Short CBC 01/03/22 01/04/22 Range/Units 22:01 06:31 WBC 15.7 H 11.1 H (4.8-10.8) X10*3/uL Hgb 11.1 L 11.9 L (12.0-16.0) g/dl Hct 34.6 L 37.7 (37.0-47.0) % Plt Count 204 201 (160-400) X10*3/uL BMP 01/03/22 01/04/22 22:00 06:31 Sodium 137 140 Potassium 4.4 D 4.3 Chloride 101 104 Carbon Dioxide 24 26 BUN 27 H D 25 H Creatinine 1.87 H 1.65 H Calcium 9.1 D 9.1 Liver Function 01/03/22 Range/Units 22:00 Total Bilirubin 0.5 (0.0-1.0) mg/dL Direct Bilirubin 0.2 (0.0-0.5) mg/dL AST 16 (5-31) U/L ALT 15 (0-31) U/L Alkaline Phosphatase 41 (39-117) U/L Albumin 3.7 (3.5-5.0) g/dL Urine 01/03/22 Range/Units 23:50 Urine Color YELLOW Urine Appearance HAZY Urine pH 6.0 (5.0-8.0) Ur Specific [place] 1.025 (1.005-1.025) Urine Protein NEG (NEG-TRACE) MG/DL Urine Glucose (UA) NEG (NEG) MG/DL Assessment and Plan (1) Colitis: Status: Acute (2) Abdominal pain: Qualifiers: Abdominal location: unspecified location Qualified Code(s): R10.9 - Unspecified abdominal pain Status: Acute (3) Nausea: Status: Acute (4) Enteritis: Status: Acute Plan 71 YF with extensive PMH that includes anemia, CKD, COPD (on home O2 of 2L/m by [place]), diabetes, GERD, history of diverticulitis, HLD, depression anxiety, restless leg syndrome. Pt has had multiple abdominal surgeries - sigmoid resection for diverticulitis, appendectomy, cholecystectomy and an ex lap in 2018 for SBO with lysis of adhesions done at that time. Pt admitted on 01/03/22 with generalized weakness, dizziness, poor appetite with decreased oral intake and abdominal pain, Abd CT scan showed improvement in the appearance of bowel adjacent the abdominal wall and a new area involving large bowel in the region of the splenic flexure. ? diverticulitis. infectious or ischemic Colitis RECOMMENDATIONS: 1. Continue IV antibiotics for UTI and suspected diverticulitis. 2. Start on a clear liquid diet in the am and advance diet as tolerated 3. Pt will be scheduled for a colonoscopy as an outpatient in 2-3 weeks - after resolution of diverticulitis. Procedures Date of Service Date of Service: 01/04/22
--- NOTE | 2022-01-04 11:06 | P.PNIM_ITS ---
Subjective Subjective Date of Service: 01/04/22 Interval History: f/u on colitis interval history: Still has some abdominal pain, and leg pain from restless legs Review of Systems abdominal pain, pain in the legs Physical Exam Vital Signs: Vital Signs: Last Vital Signs Temp 97.9 F 01/04/22 02:41 Pulse 78 01/04/22 10:39 Resp 12 01/04/22 10:39 BP 114/45 L 01/04/22 10:39 Pulse Ox 93 01/04/22 10:39 O2 Del Method 01/04/22 10:39 O2 Flow Rate 2 01/04/22 10:39 Oxygen Flow Rate 4 01/03/22 20:28 BMI result Body Mass Index 39.9 Const: Other: General: AO X 3, no acute distress Resp: CTA bilateral CVS: S1,S2,RRR GI: +BS non specific tenderness, no distention Skin: No rash Neuro: motor grossly intact Psych: appropriate affect General: cooperative and no acute distress Orientation/consciousness: patient oriented x3 Eyes: General: appearance normal, both eyes and all related structures Pupils: Equal, round and reactive pupils present Resp: Effort & Inspection: normal respiratory effort Auscultation: clear to auscultation bilaterally Cardio: Rate: regular rate Rhythm: regular rhythm GI: Other: Abdomen is soft, mildly tender on deep palpation, no rebound or guarding Palpation (GI): Soft to palpation Auscultation: normal bowel sounds Skin: General skin exam: no rashes or lesions noted Neuro: General: patient oriented x3 Cranial nerves: Yes Equal, round and reactive pupils present Cognition (Neuro): normal cognition Extrem: Other: Has significant pain in the lower extremities on palpation, around the knee, behind calves bilaterally General: Yes normal to inspection and Yes no pedal edema Objective Data Active Medications Acetaminophen (Acetaminophen 325 Mg Tablet) 650 mg PO Q6H PRN PRN Reason: Pain, Mild (Pain Scale 1-3) Last Admin: 01/04/22 07:27 Dose: 650 mg Documented By: RICHARD Albuterol/Ipratropium (Albuterol/Iprat 2.5/0.5mg 3 Ml Ampul.Neb) 3 ml INHALE RQ4H PRN PRN Reason: Shortness of Breath/Wheezing Dextrose (Dextrose 50 % 25 Gm/50 Ml Syringe) 25 gm IVPUSH Q15M PRN; Protocol PRN Reason: per Hypoglycemia Standing Ord. Docusate Sodium (Docusate Sodium 100 Mg Capsule) 100 mg PO DAILY PRN PRN Reason: Constipation Glucose (Glucose Gel 15 Gm Gel..Gram.) 15 gm PO Q15M PRN; Protocol PRN Reason: per Hypoglycemia Standing Ord. Heparin Sodium (Porcine) (Heparin Sodium,Porcine 5,000 Unit/Ml Vial) 5,000 unit SUBCUT Q12H [facility] Last Admin: 01/04/22 01:13 Dose: 5,000 unit Documented By: ELSI Lactated Ringer's (Lr) 1,000 mls @ 100 mls/hr IVCONT .Q10H [facility] Last Admin: 01/04/22 08:19 Dose: 100 mls/hr Documented By: RICHARD Levofloxacin (Levaquin) 750 mg in 150 mls @ 100 mls/hr IV Q48H [facility] Metronidazole (Flagyl) 500 mg in 100 mls @ 100 mls/hr IV Q8H [facility] Last Admin: 01/04/22 07:50 Dose: 100 mls/hr Documented By: RICHARD Insulin Human Lispro (Insulin Lispro 100 Unit/Ml 3 Ml Vial) 0 unit SUBCUT QIDACHS [facility]; Protocol Last Admin: 01/04/22 07:09 Dose: Not Given Documented By: DONNA Non-Admin Reason: No Insulin Coverage Ondansetron HCl (Ondansetron Hcl 4 Mg/2 Ml Vial) 4 mg IVPUSH Q8H PRN PRN Reason: Nausea and Vomiting Pharmacy Consult (Consult Rx Perform Med Rec) 1 each MISCELLANE ONCE PRN PRN Reason: Consult order Sodium Chloride (0.9 % Sodium Chloride Flush 3 Ml Syringe) 3 ml IVFLUSH QSHIFT [facility] Last Admin: 01/04/22 07:51 Dose: 3 ml Documented By: RICHARD Labs CBC & Chem 7: 01/04/22 06:31 01/04/22 06:31 Labs: Laboratory Results - last 24 hr 01/03/22 01/03/22 01/03/22 21:49 21:49 22:00 MCV MCH MCHC RDW Plt Count MPV Immature Gran % (Auto) Neut % (Auto) Lymph % (Auto) [place] % (Auto) Eos % (Auto) Baso % (Auto) Lymph # (Auto) [place] # (Auto) Eos # (Auto) Baso # (Auto) Abs Immat Gran (auto) Absolute Neuts (auto) Absolute Nucleated RBC Nucleated RBC % (auto) PT INR VBG pH VBG pCO2 VBG pO2 VBG HCO3 VBG O2 Saturation VBG Base Excess Anion Gap 16 Estim Creat Clear Calc 28.0 Estimated GFR 27 POC Glucose Random Glucose 202 H Lactic Acid Calcium 9.1 D Magnesium 1.9 Total Bilirubin 0.5 Direct Bilirubin 0.2 AST 16 ALT 15 Alkaline Phosphatase 41 Lactate Dehydrogenase 254 H Troponin I High Sens 4.5 B-Natriuretic Peptide < 10 Total Protein 6.3 L Albumin 3.7 Lipase 17 Urine Color Urine Appearance Urine pH Ur Specific [place] Urine Protein Urine Glucose (UA) Urine Ketones Urine Blood Urine Nitrite Ur Leukocyte Esterase Urine RBC Urine WBC Ur Squamous Epith Cells Urine Bacteria COVID-19 (JESSIKA) Negative COVID-IR Diagnostyx Com See Note 01/03/22 01/03/22 01/03/22 22:01 22:01 22:01 MCV 84.8 MCH 27.2 MCHC 32.1 RDW 14.6 Plt Count 204 MPV 12.0 Immature Gran % (Auto) 0.6 H Neut % (Auto) 79.5 H Lymph % (Auto) 11.6 L [place] % (Auto) 7.2 Eos % (Auto) 0.9 Baso % (Auto) 0.2 Lymph # (Auto) 1.8 [place] # (Auto) 1.1 Eos # (Auto) 0.1 Baso # (Auto) 0.0 Abs Immat Gran (auto) 0.09 H Absolute Neuts (auto) 12.5 H Absolute Nucleated RBC 0.000 Nucleated RBC % (auto) 0.0 PT 12.0 INR 1.1 VBG pH VBG pCO2 VBG pO2 VBG HCO3 VBG O2 Saturation VBG Base Excess Anion Gap Estim Creat Clear Calc Estimated GFR POC Glucose Random Glucose Lactic Acid 1.8 Calcium Magnesium Total Bilirubin Direct Bilirubin AST ALT Alkaline Phosphatase Lactate Dehydrogenase Troponin I High Sens B-Natriuretic Peptide Total Protein Albumin Lipase Urine Color Urine Appearance Urine pH Ur Specific [place] Urine Protein Urine Glucose (UA) Urine Ketones Urine Blood Urine Nitrite Ur Leukocyte Esterase Urine RBC Urine WBC Ur Squamous Epith Cells Urine Bacteria COVID-19 (JESSIKA) COVID-IR Diagnostyx Com 01/03/22 01/03/22 01/04/22 22:07 23:50 06:31 MCV 86.3 MCH 27.2 MCHC 31.6 RDW 14.6 Plt Count 201 MPV 12.2 Immature Gran % (Auto) 0.5 H Neut % (Auto) 66.6 Lymph % (Auto) 23.6 [place] % (Auto) 7.6 Eos % (Auto) 1.4 Baso % (Auto) 0.3 Lymph # (Auto) 2.6 [place] # (Auto) 0.8 Eos # (Auto) 0.2 Baso # (Auto) 0.0 Abs Immat Gran (auto) 0.05 H Absolute Neuts (auto) 7.4 Absolute Nucleated RBC 0.000 Nucleated RBC % (auto) 0.0 PT INR VBG pH 7.46 H VBG pCO2 31 VBG pO2 156 VBG HCO3 22 VBG O2 Saturation 99.0 VBG Base Excess -0.2 Anion Gap Estim Creat Clear Calc Estimated GFR POC Glucose Random Glucose Lactic Acid Calcium Magnesium Total Bilirubin Direct Bilirubin AST ALT Alkaline Phosphatase Lactate Dehydrogenase Troponin I High Sens B-Natriuretic Peptide Total Protein Albumin Lipase Urine Color YELLOW Urine Appearance HAZY Urine pH 6.0 Ur Specific [place] 1.025 Urine Protein NEG Urine Glucose (UA) NEG Urine Ketones NEG Urine Blood 2+ H Urine Nitrite NEG Ur Leukocyte Esterase 1+ H Urine RBC 1-4 Urine WBC 30-49 H Ur Squamous Epith Cells 1+ Urine Bacteria 4+ COVID-19 (JESSIKA) COVID-19 Clin Com 01/04/22 01/04/22 06:31 06:53 MCV MCH MCHC RDW Plt Count MPV Immature Gran % (Auto) Neut % (Auto) Lymph % (Auto) [place] % (Auto) Eos % (Auto) Baso % (Auto) Lymph # (Auto) [place] # (Auto) Eos # (Auto) Baso # (Auto) Abs Immat Gran (auto) Absolute Neuts (auto) Absolute Nucleated RBC Nucleated RBC % (auto) PT INR VBG pH VBG pCO2 VBG pO2 VBG HCO3 VBG O2 Saturation VBG Base Excess Anion Gap 14 Estim Creat Clear Calc 31.7 Estimated GFR 31 POC Glucose 125 H Random Glucose 134 H Lactic Acid Calcium 9.1 Magnesium Total Bilirubin Direct Bilirubin AST ALT Alkaline Phosphatase Lactate Dehydrogenase Troponin I High Sens B-Natriuretic Peptide Total Protein Albumin Lipase Urine Color Urine Appearance Urine pH Ur Specific [place] Urine Protein Urine Glucose (UA) Urine Ketones Urine Blood Urine Nitrite Ur Leukocyte Esterase Urine RBC Urine WBC Ur Squamous Epith Cells Urine Bacteria COVID-19 (JESSIKA) COVID-19 Clin Com Assessment and Plan (1) AGUSTIN (acute kidney injury): Status: Acute (2) Colitis: Status: Acute Plan 71-year-old female with past medical history as above presents to the hospital with generalized weakness found to have UTI as well as AGUSTIN # UTI - likely the cause of her weakness -continue Levaquin, follow cultures # AGUSTIN--Improving, continue IVF, BMP # Colitis versus diverticulitis -Continue Flagyl+Levaquin -Morphine for pain # leukocytosis - likely multifactorial in the setting of UTI as well as possible colitis - treat above - follow CBC # diabetes - low-dose sliding scale insulin - diabetic diet # hypertension - stable will continue amlodipine, hold lisinopril in the setting of AGUSTIN Need for inpatient: IV Abx for acute colitis, AGUSTIN needing IVF Quality Stroke Does the patient have a stroke diagnosis?: No VTE Prior VTE?: No VTE Risk Level:: Medical - moderate - high VTE Device Contraindication: Treatment Not Indicated VTE Drug Contraindication: N/A - Med Ordered
[2022-01-04] MEDS: Furosemide 20 MG TABLET PO (11:46)
[2022-01-04] MEDS: Morphine Sulfate 2 MG/ML CARTRIDGE IVPUSH ×3 (11:48→23:00)
[2022-01-04] MEDS: amLODIPine Besylate 5 MG TABLET PO (11:48)
[2022-01-04 11:53] LABS: Glucose, Whole Blood 137 mg/dL (60-115)
--- NOTE | 2022-01-04 15:02 | PC.NURSE ---
Pt A&Ox4, pt out of bed to commode. Pt resting in bed and needs are being met.
[2022-01-04 18:35] LABS: Glucose, Whole Blood 99 mg/dL (60-115)
--- NOTE | 2022-01-04 21:32 | PC.NURSE ---
Attempted to call report Amanda GUTIERREZ will call me back.
[2022-01-04 22:51] LABS: Glucose, Whole Blood 109 mg/dL (60-115)
[2022-01-04] MEDS: Gabapentin 300 MG CAPSULE 900 MG PO (22:58)
[2022-01-04] MEDS: hydrOXYzine HCL 25 MG TABLET PO (22:59)
[2022-01-04] MEDS: Docusate Sodium 100 MG CAPSULE PO (22:59)
[2022-01-04] MEDS: traZODone HCL 100 MG TABLET 200 MG PO (22:59)
[2022-01-04] MEDS: rOPINIRole HCL 2 MG TABLET PO (23:43)
[2022-01-05 03:46] VITALS: BP 139/65; PULSE 83; RESP 15; TEMP 36; O2SAT 100
[2022-01-05] MEDS: Morphine Sulfate 2 MG/ML CARTRIDGE IVPUSH ×4 (04:54→23:08)
[2022-01-05 07:45] LABS: Glucose, Whole Blood 145 mg/dL (60-115)
[2022-01-05 08:00] VITALS: BP 118/85; PULSE 83; RESP 18; TEMP 37.1; O2SAT 96
[2022-01-05] MEDS: Docusate Sodium 100 MG CAPSULE PO ×2 (08:10→19:44)
[2022-01-05] MEDS: amLODIPine Besylate 5 MG TABLET PO (08:10)
[2022-01-05] MEDS: Aspirin 81 MG TAB.CHEW PO (08:10)
[2022-01-05] MEDS: rOPINIRole HCL 2 MG TABLET PO ×2 (08:11→19:42)
[2022-01-05] MEDS: lisinopriL 5 MG TABLET PO (08:11)
[2022-01-05] MEDS: hydrOXYzine HCL 25 MG TABLET PO ×2 (08:11→19:43)
[2022-01-05] MEDS: Atorvastatin Calcium 80 MG TABLET PO (08:11)
[2022-01-05] MEDS: Montelukast Sodium 10 MG TABLET PO (08:11)
[2022-01-05] MEDS: Cholecalciferol (Vitamin D3) 25 MCG TABLET PO (08:11)
[2022-01-05] MEDS: Gabapentin 300 MG CAPSULE PO (08:11)
[2022-01-05] MEDS: buPROPion HCl XL 150 MG TAB.ER.24H PO (08:11)
[2022-01-05] MEDS: Insulin Glargine,Hum.rec.anlog 100 UNIT/ML 10 ML VIAL 14 UNIT SUBCUT (08:12)
[2022-01-05] MEDS: metroNIDAZOLE/NS 500 MG/100 ML PIGGYBACK 100 MG IV ×3 (08:12→23:10)
--- NOTE | 2022-01-05 09:16 | MHC.CM.PN ---
UPON ASSESSMENT ATTEMPT, PATIENT ASKS TO BE LEFT ALONE SHE ASKS THAT IMM BE LEFT BEDSIDE AND SHE VERBALIZES COMPREHENSION OF HER MEDICARE RIGHTS. WHEN ASKED IF HER ASSESSMENT INFORMATION WE HAVE ON FILE IS STILL THE SAME, SHE AGREES ACCORDING TO PREVIOUS VISIT, PATIENT LIVES WITH SPOUSE AND HAS 2 WALKERS IN THE HOME SHE IS ACTIVE WITH [facility] AIDE AND [employer] [employer] HOME O2 [facility]ROUGH [facility]. REFERRAL TO BE PLACED TO [facility] TO ASKS IF PATIENT IS STILL ACTIVE WITH AGENCY. HCP IS ON FILE AND VERIFIED. SHE IS COVID VACCINATED X 3. THIS INFORMATION WAS RETRIEVED FROM [facility] 01/05 IN CHART CASE MANAGEMENT FOLLOWING
--- NOTE | 2022-01-05 09:53 | P.PNIM_ITS ---
Subjective Subjective Date of Service: 01/05/22 Interval History: f/u on colitis interval history: She feels a bit better, but sore all over Review of Systems abdominal pain, pain in the legs Physical Exam Vital Signs: Vital Signs: Last Vital Signs Temp 98.8 F 01/05/22 08:00 Pulse 83 01/05/22 08:00 Resp 18 01/05/22 08:00 BP 118/85 01/05/22 08:00 Pulse Ox 96 01/05/22 08:00 O2 Del Method 01/05/22 08:00 O2 Flow Rate 2 01/05/22 03:46 Oxygen Flow Rate 4 01/03/22 20:28 BMI result Body Mass Index 39.9 Const: Other: General: AO X 3, no acute distress Resp: CTA bilateral CVS: S1,S2,RRR GI: +BS non specific tenderness, no distention Skin: No rash Neuro: motor grossly intact Psych: appropriate affect Objective Data Active Medications Acetaminophen (Acetaminophen 325 Mg Tablet) 650 mg PO Q6H PRN PRN Reason: Pain, Mild (Pain Scale 1-3) Last Admin: 01/04/22 07:27 Dose: 650 mg Documented By: RICHARD Albuterol Sulfate (Albuterol Sulfate (0.042%) 1.25 Mg/3 Ml Vial.Neb) 2.5 mg INHALE Q4H PRN PRN Reason: copd Albuterol Sulfate (Albuterol Sulfate 90 Mcg 8 Gm Inhaler) 2 puff INHALE Q4H PRN PRN Reason: shortness of breath or wheezing Albuterol/Ipratropium (Albuterol/Iprat 2.5/0.5mg 3 Ml Ampul.Neb) 3 ml INHALE RQ4H PRN PRN Reason: Shortness of Breath/Wheezing Amlodipine Besylate (Amlodipine Besylate 5 Mg Tablet) 5 mg PO DAILY [facility]; Protocol Last Admin: 01/05/22 08:10 Dose: 5 mg Documented By: ALEXA Aspirin (Aspirin 81 Mg Tab.Chew) 81 mg PO DAILY [facility] Last Admin: 01/05/22 08:10 Dose: 81 mg Documented By: ALEXA Atorvastatin Calcium (Atorvastatin Calcium 80 Mg Tablet) 80 mg PO DAILY [facility] Last Admin: 01/05/22 08:11 Dose: 80 mg Documented By: ALEXA Bupropion HCl (Bupropion Hcl Xl 150 Mg Tab.Er.24h) 150 mg PO DAILY [facility] Last Admin: 01/05/22 08:11 Dose: 150 mg Documented By: ALEXA Dextrose (Dextrose 50 % 25 Gm/50 Ml Syringe) 25 gm IVPUSH Q15M PRN; Protocol PRN Reason: per Hypoglycemia Standing Ord. Docusate Sodium (Docusate Sodium 100 Mg Capsule) 100 mg PO DAILY PRN PRN Reason: Constipation Docusate Sodium (Docusate Sodium 100 Mg Capsule) 100 mg PO BID [facility] Last Admin: 01/05/22 08:10 Dose: 100 mg Documented By: ALEXA Furosemide (Furosemide 20 Mg Tablet) 20 mg PO Q48H [facility]; Protocol Last Admin: 01/04/22 11:46 Dose: 20 mg Documented By: DONNA Gabapentin (Gabapentin 300 Mg Capsule) 300 mg PO DAILY [facility] Last Admin: 01/05/22 08:11 Dose: 300 mg Documented By: ALEXA Gabapentin (Gabapentin 300 Mg Capsule) 900 mg PO BEDTIME [facility] Last Admin: 01/04/22 22:58 Dose: 900 mg Documented By: ANURAG Glucose (Glucose Gel 15 Gm Gel..Gram.) 15 gm PO Q15M PRN; Protocol PRN Reason: per Hypoglycemia Standing Ord. Heparin Sodium (Porcine) (Heparin Sodium,Porcine 5,000 Unit/Ml Vial) 5,000 unit SUBCUT Q12H [facility] Last Admin: 01/04/22 23:43 Dose: 5,000 unit Documented By: DEBRA Hydroxyzine HCl (Hydroxyzine Hcl 25 Mg Tablet) 25 mg PO BID [facility] Last Admin: 01/05/22 08:11 Dose: 25 mg Documented By: ALEXA Lactated Ringer's (Lr) 1,000 mls @ 100 mls/hr IVCONT .Q10H [facility] Last Infusion: 01/05/22 08:15 Dose: 0 mls/hr Documented By: ALEXA Levofloxacin (Levaquin) 750 mg in 150 mls @ 100 mls/hr IV Q48H [facility] Metronidazole (Flagyl) 500 mg in 100 mls @ 100 mls/hr IV Q8H [facility] Last Admin: 01/05/22 08:12 Dose: 100 mls/hr Documented By: ALEXA Insulin Glargine (Insulin Glargine,Hum.Rec.Anlog 100 Unit/Ml 10 Ml Vial) 14 unit SUBCUT DAILY [facility] Last Admin: 01/05/22 08:12 Dose: 14 unit Documented By: ALEXA Insulin Human Lispro (Insulin Lispro 100 Unit/Ml 3 Ml Vial) 0 unit SUBCUT QIDACHS [facility]; Protocol Last Admin: 01/05/22 07:57 Dose: Not Given Documented By: ALEXA Non-Admin Reason: No Insulin Coverage Lisinopril (Lisinopril 5 Mg Tablet) 5 mg PO DAILY [facility]; Protocol Last Admin: 01/05/22 08:11 Dose: 5 mg Documented By: ALEXA Montelukast Sodium (Montelukast Sodium 10 Mg Tablet) 10 mg PO DAILY [facility] Last Admin: 01/05/22 08:11 Dose: 10 mg Documented By: ALEXA Morphine Sulfate (Morphine Sulfate 2 Mg/Ml Cartridge) 2 mg IVPUSH Q3H PRN; Protocol PRN Reason: Pain, Severe (Pain Scale 7-10) Last Admin: 01/05/22 04:54 Dose: 2 mg Documented By: DEBRA Ondansetron HCl (Ondansetron Hcl 4 Mg/2 Ml Vial) 4 mg IVPUSH Q8H PRN PRN Reason: Nausea and Vomiting Pharmacy Consult (Consult Rx Perform Med Rec) 1 each MISCELLANE ONCE PRN PRN Reason: Consult order Ropinirole HCl (Ropinirole Hcl 2 Mg Tablet) 2 mg PO BID [facility] Last Admin: 01/05/22 08:11 Dose: 2 mg Documented By: ALEXA Sodium Chloride (0.9 % Sodium Chloride Flush 3 Ml Syringe) 3 ml IVFLUSH QSHIFT [facility] Last Admin: 01/05/22 07:13 Dose: Not Given Documented By: ALEXA Non-Admin Reason: IV Running Trazodone HCl (Trazodone Hcl 100 Mg Tablet) 200 mg PO BEDTIME [facility] Last Admin: 01/04/22 22:59 Dose: 200 mg Documented By: ANURAG Vitamin D (Cholecalciferol (Vitamin D3) 25 Mcg Tablet) 25 mcg PO DAILY [facility] Last Admin: 01/05/22 08:11 Dose: 25 mcg Documented By: ALEXA Labs CBC & Chem 7: 01/04/22 06:31 01/04/22 06:31 Labs: Laboratory Results - last 24 hr 01/04/22 01/04/22 01/04/22 11:49 18:32 22:47 POC Glucose 137 H 99 109 01/05/22 07:33 POC Glucose 145 H Microbiology Microbiology Results: Microbiology 01/03/22 21:49 Blood Culture - Preliminary Blood - Venous No growth after 24 hours. 01/03/22 21:49 Blood Culture - Preliminary Blood - Venous No growth after 24 hours. Assessment and Plan (1) Colitis: Status: Acute (2) Leukocytosis: Status: Acute Plan 71-year-old female with past medical history as above presents to the hospital with generalized weakness found to have UTI as well as AGUSTIN # UTI -likely the cause of her weakness -continue Levaquin, follow cultures # AGUSTIN--Improving, continue IVF, BMP # Colitis versus diverticulitis -Continue Flagyl+Levaquin -Morphine for pain -seen by GI, recommendation: -1.? Continue IV antibiotics for UTI and suspected diverticulitis. 2.? Repeat Abdominal CT scan on 01/06/22 3.? If repeat CT scan rules out diverticulitis, I can schedule pt for a colonoscopy on 01/07/22 4.? Start on a clear liquid diet in the am and advance diet as tolerated # leukocytosis - likely multifactorial in the setting of UTI as well as possible colitis - treat above - follow CBC # diabetes - low-dose sliding scale insulin - diabetic diet # hypertension - normal continue amlodipine, hold lisinopril in the setting of AGUSTIN Need for inpatient: IV Abx for acute colitis, AGUSTIN needing IVF Quality Stroke Does the patient have a stroke diagnosis?: No VTE Prior VTE?: No VTE Risk Level:: Medical - moderate - high VTE Device Contraindication: Treatment Not Indicated VTE Drug Contraindication: N/A - Med Ordered
[2022-01-05 11:11] LABS: Glucose, Whole Blood 149 mg/dL (60-115)
[2022-01-05] MEDS: Heparin Sodium,Porcine 5,000 UNIT/ML VIAL 5000 UNIT SUBCUT ×2 (11:44→23:09)
[2022-01-05 12:00] VITALS: BP 108/59; PULSE 84; RESP 18; TEMP 36.6; O2SAT 98
[2022-01-05 16:00] VITALS: BP 110/56; PULSE 77; RESP 16; TEMP 36.6; O2SAT 98
[2022-01-05] MEDS: Lactated Ringers 1,000 ML 100 ML IVCONT (16:20)
[2022-01-05 16:37] LABS: Glucose, Whole Blood 153 mg/dL (60-115)
[2022-01-05] MEDS: Insulin Lispro 100 UNIT/ML 3 ML VIAL SUBCUT (16:44)
[2022-01-05] MEDS: traZODone HCL 100 MG TABLET 200 MG PO (19:43)
[2022-01-05] MEDS: Gabapentin 300 MG CAPSULE 900 MG PO (19:43)
[2022-01-05] MEDS: 0.9 % Sodium Chloride Flush 3 ML SYRINGE IVFLUSH (19:44)
[2022-01-05 19:59] VITALS: BP 122/59; PULSE 82; RESP 17; TEMP 37.2; O2SAT 97
[2022-01-05 20:43] LABS: Glucose, Whole Blood 136 mg/dL (60-115)
[2022-01-05] MEDS: levoFLOXacin/D5W 750 MG/150 ML PIGGYBACK 100 MG IV (21:36)
[2022-01-05 23:18] VITALS: BP 105/50; PULSE 77; RESP 20; TEMP 36.9; O2SAT 97
[2022-01-06] MEDS: Albuterol/Iprat 2.5/0.5MG 3 ML AMPUL.NEB INHALE (01:08)
[2022-01-06 01:09] VITALS: PULSE 77; RESP 20; O2SAT 96
[2022-01-06 03:46] VITALS: BP 121/53; PULSE 80; RESP 21; TEMP 37.1; O2SAT 98
[2022-01-06] MEDS: Morphine Sulfate 2 MG/ML CARTRIDGE IVPUSH ×4 (04:07→21:21)
[2022-01-06 06:41] LABS: Anion Gap 11 (12-20); Blood Urea Nitrogen 20 mg/dL (9-16); Calcium 8.5 mg/dL (8.4-10.2); Carbon Dioxide 31 mmol/L (22-29); Chloride 101 mmol/L (96-108); Creatinine Clr Calc Pharmacy 33.2; Estimated Glomerular Filt Rate 32; Glucose Random 142 mg/dL (60-115); Potassium 4.1 mmol/L (3.3-5.1); Sodium 139 mmol/L (135-145)
[2022-01-06 07:17] LABS: Hematocrit 31.5 % (37.0-47.0); Hemoglobin 9.8 g/dl (12.0-16.0); Mean Corpuscular HGB Conc 31.1 g/dl (31.0-35.0); Mean Corpuscular Volume 86.8 fL (80.0-98.0); Mean Platelet Volume 11.8 fL (9.4-12.3); Platelet Count 210 X10*3/uL (160-400); Red Blood Count 3.63 X10*6/uL (4.20-5.50); Red Cell Distribution Width 14.4 % (11.0-16.0); White Blood Count 9.2 X10*3/uL (4.8-10.8)
[2022-01-06 07:40] LABS: Glucose, Whole Blood 127 mg/dL (60-115)
--- NOTE | 2022-01-06 08:55 | P.CDIC_ITS ---
CDI Concurrent Query Documentation Clarification: PHYSICIAN'S DOCUMENTATION REQUEST Date of Query: 01/06/22 0855 Patient Name: Mine Peacock Admit Date: 01/03/22 Dear Doctor, A review of the medical record indicates additional documentation may be needed. Please review below and update the documentation accordingly. Clinical Indicators: The following clinical information was noted in the record: Risk Factors/Clinical Indicators/Treatments BUN 27/Creat 1.87/Est GFR 27 Per H&P: AGUSTIN PMH: CKD Please clarify which of the following accurately represents the patient's renal status: * Acute renal failure (with type, appropriate) on Chronic Kidney Disease (CKD) - see criteria * CKD, please provide stage - see criteria * Other (please specify) * Unable to determine Criteria for AGUSTIN* Stages of Chronic Kidney Disease* 1. Increase in serum creatinine by ? 0.3 mg/dL Level Description GFR (?26.5 micromol/L) within 48 hours, or G1 Normal or High > 90 2. Increase in serum creatinine to ?1.5 times baseline, G2 Mildly decreased 60 ? 89 which is known or presumed to have occurred within 7 days, or G3a Mildly to moderately decreased 45 ? 59 3. Urine volume <0.5 mL/kg/hour for six hours G3b Moderately to severely decreased 30 - 44 G4 Severely decreased 15 ? 29 G5 Kidney failure < 15 *Source: Kidney Disease: Improving Global Outcomes (KDIGO) 2012 Use of terms such as suspected, likely, concern for, or probable (associated with a specific diagnosis that is being evaluated, monitored, or treated as if it exists) are acceptable and can be coded in the inpatient setting, when documented at the time of discharge. Thank you, Leslee Belcher , RN Extension: [phone] Please use your independent medical judgment in providing your response. THIS QUERY IS PART OF THE PERMANENT MEDICAL RECORD Provider Response: Other Other Diagnosis: Agustin, on ckd
[2022-01-06] MEDS: metroNIDAZOLE/NS 500 MG/100 ML PIGGYBACK 100 MG IV ×3 (09:33→23:27)
[2022-01-06] MEDS: 0.9 % Sodium Chloride Flush 3 ML SYRINGE IVFLUSH ×4 (09:33→23:32)
[2022-01-06] MEDS: Insulin Glargine,Hum.rec.anlog 100 UNIT/ML 10 ML VIAL 14 UNIT SUBCUT (09:34)
[2022-01-06] MEDS: hydrOXYzine HCL 25 MG TABLET PO ×2 (09:35→20:50)
[2022-01-06] MEDS: Insulin Lispro 100 UNIT/ML 3 ML VIAL SUBCUT (09:35)
[2022-01-06] MEDS: amLODIPine Besylate 5 MG TABLET PO (09:35)
[2022-01-06] MEDS: Gabapentin 300 MG CAPSULE PO (09:35)
[2022-01-06] MEDS: buPROPion HCl XL 150 MG TAB.ER.24H PO (09:35)
[2022-01-06] MEDS: Cholecalciferol (Vitamin D3) 25 MCG TABLET PO (09:35)
[2022-01-06] MEDS: lisinopriL 5 MG TABLET PO (09:36)
[2022-01-06] MEDS: Aspirin 81 MG TAB.CHEW PO (09:36)
[2022-01-06] MEDS: rOPINIRole HCL 2 MG TABLET PO ×2 (09:36→20:51)
[2022-01-06] MEDS: Atorvastatin Calcium 80 MG TABLET PO (09:36)
[2022-01-06] MEDS: Docusate Sodium 100 MG CAPSULE PO ×2 (09:36→20:51)
[2022-01-06] MEDS: Montelukast Sodium 10 MG TABLET PO (09:36)
--- NOTE | 2022-01-06 09:36 | HO.PM.IMPN ---
Subjective Subjective Date of Service: 01/06/22 Interval History: f/u on colitis interval history: She is sore everywhere and stick to stomach Review of Systems abdominal pain, pain in the legs Physical Exam Vital Signs: Vital Signs: Last Vital Signs Temp 98.7 F 01/06/22 03:46 Pulse 80 01/06/22 03:46 Resp 21 H 01/06/22 03:46 BP 121/53 L 01/06/22 03:46 Pulse Ox 98 01/06/22 03:46 O2 Del Method 01/06/22 04:00 O2 Flow Rate 2 01/05/22 19:59 Oxygen Flow Rate 4 01/03/22 20:28 BMI result Body Mass Index 39.9 Const: Other: General: AO X 3, no acute distress Resp: CTA bilateral CVS: S1,S2,RRR GI: +BS non specific tenderness, no distention Skin: No rash Neuro: motor grossly intact Psych: appropriate affect Objective Data Active Medications Acetaminophen (Acetaminophen 325 Mg Tablet) 650 mg PO Q6H PRN PRN Reason: Pain, Mild (Pain Scale 1-3) Last Admin: 01/04/22 07:27 Dose: 650 mg Documented By: RICHARD Albuterol Sulfate (Albuterol Sulfate (0.042%) 1.25 Mg/3 Ml Vial.Neb) 2.5 mg INHALE Q4H PRN PRN Reason: copd Albuterol Sulfate (Albuterol Sulfate 90 Mcg 8 Gm Inhaler) 2 puff INHALE Q4H PRN PRN Reason: shortness of breath or wheezing Albuterol/Ipratropium (Albuterol/Iprat 2.5/0.5mg 3 Ml Ampul.Neb) 3 ml INHALE RQ4H PRN PRN Reason: Shortness of Breath/Wheezing Last Admin: 01/06/22 01:08 Dose: 3 ml Documented By: DAMI Amlodipine Besylate (Amlodipine Besylate 5 Mg Tablet) 5 mg PO DAILY [facility]; Protocol Last Admin: 01/05/22 08:10 Dose: 5 mg Documented By: ALEXA Aspirin (Aspirin 81 Mg Tab.Chew) 81 mg PO DAILY [facility] Last Admin: 01/05/22 08:10 Dose: 81 mg Documented By: ALEXA Atorvastatin Calcium (Atorvastatin Calcium 80 Mg Tablet) 80 mg PO DAILY [facility] Last Admin: 01/05/22 08:11 Dose: 80 mg Documented By: ALEXA Bupropion HCl (Bupropion Hcl Xl 150 Mg Tab.Er.24h) 150 mg PO DAILY [facility] Last Admin: 01/05/22 08:11 Dose: 150 mg Documented By: ALEXA Dextrose (Dextrose 50 % 25 Gm/50 Ml Syringe) 25 gm IVPUSH Q15M PRN; Protocol PRN Reason: per Hypoglycemia Standing Ord. Docusate Sodium (Docusate Sodium 100 Mg Capsule) 100 mg PO DAILY PRN PRN Reason: Constipation Docusate Sodium (Docusate Sodium 100 Mg Capsule) 100 mg PO BID [facility] Last Admin: 01/05/22 19:44 Dose: 100 mg Documented By: TOOTIE Furosemide (Furosemide 20 Mg Tablet) 20 mg PO Q48H [facility]; Protocol Last Admin: 01/04/22 11:46 Dose: 20 mg Documented By: DONNA Gabapentin (Gabapentin 300 Mg Capsule) 300 mg PO DAILY [facility] Last Admin: 01/05/22 08:11 Dose: 300 mg Documented By: ALEXA Gabapentin (Gabapentin 300 Mg Capsule) 900 mg PO BEDTIME [facility] Last Admin: 01/05/22 19:43 Dose: 900 mg Documented By: TOOTIE Glucose (Glucose Gel 15 Gm Gel..Gram.) 15 gm PO Q15M PRN; Protocol PRN Reason: per Hypoglycemia Standing Ord. Heparin Sodium (Porcine) (Heparin Sodium,Porcine 5,000 Unit/Ml Vial) 5,000 unit SUBCUT Q12H [facility] Last Admin: 01/05/22 23:09 Dose: 5,000 unit Documented By: TOOTIE Hydroxyzine HCl (Hydroxyzine Hcl 25 Mg Tablet) 25 mg PO BID [facility] Last Admin: 01/05/22 19:43 Dose: 25 mg Documented By: TOOTIE Levofloxacin (Levaquin) 750 mg in 150 mls @ 100 mls/hr IV Q48H [facility] Last Infusion: 01/05/22 23:13 Dose: 0 mls/hr Documented By: TOOTIE Metronidazole (Flagyl) 500 mg in 100 mls @ 100 mls/hr IV Q8H [facility] Last Infusion: 01/06/22 00:21 Dose: 0 mls/hr Documented By: TOOTIE Insulin Glargine (Insulin Glargine,Hum.Rec.Anlog 100 Unit/Ml 10 Ml Vial) 14 unit SUBCUT DAILY [facility] Last Admin: 01/05/22 08:12 Dose: 14 unit Documented By: ALEXA Insulin Human Lispro (Insulin Lispro 100 Unit/Ml 3 Ml Vial) 0 unit SUBCUT QIDACHS [facility]; Protocol Last Admin: 01/05/22 21:20 Dose: Not Given Documented By: TOOTIE Non-Admin Reason: No Insulin Coverage Lisinopril (Lisinopril 5 Mg Tablet) 5 mg PO DAILY [facility]; Protocol Last Admin: 01/05/22 08:11 Dose: 5 mg Documented By: ALEXA Montelukast Sodium (Montelukast Sodium 10 Mg Tablet) 10 mg PO DAILY [facility] Last Admin: 01/05/22 08:11 Dose: 10 mg Documented By: ALEXA Morphine Sulfate (Morphine Sulfate 2 Mg/Ml Cartridge) 2 mg IVPUSH Q3H PRN; Protocol PRN Reason: Pain, Severe (Pain Scale 7-10) Last Admin: 01/06/22 04:07 Dose: 2 mg Documented By: TOOTIE Ondansetron HCl (Ondansetron Hcl 4 Mg/2 Ml Vial) 4 mg IVPUSH Q8H PRN PRN Reason: Nausea and Vomiting Pharmacy Consult (Consult Rx Perform Med Rec) 1 each MISCELLANE ONCE PRN PRN Reason: Consult order Ropinirole HCl (Ropinirole Hcl 2 Mg Tablet) 2 mg PO BID [facility] Last Admin: 01/05/22 19:42 Dose: 2 mg Documented By: TOOTIE Sodium Chloride (0.9 % Sodium Chloride Flush 3 Ml Syringe) 3 ml IVFLUSH QSHIFT [facility] Last Admin: 01/05/22 19:44 Dose: 3 ml Documented By: TOOTIE Trazodone HCl (Trazodone Hcl 100 Mg Tablet) 200 mg PO BEDTIME [facility] Last Admin: 01/05/22 19:43 Dose: 200 mg Documented By: TOOTIE Vitamin D (Cholecalciferol (Vitamin D3) 25 Mcg Tablet) 25 mcg PO DAILY [facility] Last Admin: 01/05/22 08:11 Dose: 25 mcg Documented By: ALEXA Labs CBC & Chem 7: 01/06/22 06:09 01/06/22 06:09 Labs: Laboratory Results - last 24 hr 01/05/22 01/05/22 01/05/22 11:05 16:13 20:01 MCV MCH MCHC RDW Plt Count MPV Absolute Nucleated RBC Nucleated RBC % (auto) Anion Gap Estim Creat Clear Calc Estimated GFR POC Glucose 149 H 153 H 136 H Random Glucose Calcium 01/06/22 01/06/22 01/06/22 06:09 06:09 07:33 MCV 86.8 MCH 27.0 MCHC 31.1 RDW 14.4 Plt Count 210 MPV 11.8 Absolute Nucleated RBC 0.000 Nucleated RBC % (auto) 0.0 Anion Gap 11 L Estim Creat Clear Calc 33.2 Estimated GFR 32 POC Glucose 127 H Random Glucose 142 H Calcium 8.5 D Microbiology Microbiology Results: Microbiology 01/04/22 Unknown Urine Culture - Preliminary Urine Catheterized - Feng Catheter Gram negative alesha 01/03/22 21:49 Blood Culture - Preliminary Blood - Venous No growth after 48 hours. 01/03/22 21:49 Blood Culture - Preliminary Blood - Venous No growth after 48 hours. Assessment and Plan (1) Colitis: Status: Acute (2) Leukocytosis: Status: Acute Plan 71-year-old female with past medical history as above presents to the hospital with generalized weakness found to have UTI as well as AGUSTIN # UTI, culture growing GNR -likely the cause of her weakness -continue Levaquin, follow cultures # AGUSTIN on CKD --Improving, continue IVF, # Colitis versus diverticulitis -Continue Flagyl+Levaquin -Morphine for pain -seen by GI, recommendation: -1.? Continue IV antibiotics for UTI and suspected diverticulitis. 2.? Repeat Abdominal CT scan on 01/06/22 3.? If repeat CT scan rules out diverticulitis, I can schedule pt for a colonoscopy on 01/07/22 4.? Start on a clear liquid diet in the am and advance diet as tolerated # leukocytosis--resollved - likely multifactorial in the setting of UTI as well as possible colitis - treat above - follow CBC # diabetes - low-dose sliding scale insulin - diabetic diet # hypertension - normal continue amlodipine, hold lisinopril in the setting of AGUSTIN Need for inpatient: IV Abx for acute colitis, AGUSTIN needing IVF PT eval for possible rehab Quality Stroke Does the patient have a stroke diagnosis?: No VTE Prior VTE?: No VTE Risk Level:: Medical - moderate - high VTE Device Contraindication: Treatment Not Indicated VTE Drug Contraindication: N/A - Med Ordered
[2022-01-06 10:52] VITALS: BP 103/40; PULSE 68; RESP 18; TEMP 36.6; O2SAT 97
[2022-01-06 11:57] LABS: Glucose, Whole Blood 128 mg/dL (60-115)
[2022-01-06] MEDS: ondansetron HCL 4 MG/2 ML VIAL IVPUSH ×2 (13:09→21:22)
[2022-01-06] MEDS: Heparin Sodium,Porcine 5,000 UNIT/ML VIAL 5000 UNIT SUBCUT ×2 (13:09→23:28)
[2022-01-06] MEDS: Furosemide 20 MG TABLET PO (13:10)
[2022-01-06 15:22] VITALS: BP 129/57; PULSE 77; RESP 18; TEMP 37.1; O2SAT 98
[2022-01-06 16:27] LABS: Glucose, Whole Blood 116 mg/dL (60-115)
[2022-01-06 19:19] VITALS: BP 132/62; PULSE 82; RESP 18; TEMP 36.7; O2SAT 91
[2022-01-06 19:55] LABS: Glucose, Whole Blood 105 mg/dL (60-115)
[2022-01-06 20:09] LABS: Glucose, Whole Blood 113 mg/dL (60-115)
[2022-01-06] MEDS: traZODone HCL 100 MG TABLET 200 MG PO (20:50)
[2022-01-06] MEDS: Gabapentin 300 MG CAPSULE 900 MG PO (20:50)
[2022-01-06 23:23] VITALS: BP 128/61; PULSE 82; RESP 17; TEMP 36.4; O2SAT 94
[2022-01-07 04:00] VITALS: BP 124/54; PULSE 84; RESP 17; TEMP 36.4; O2SAT 94
[2022-01-07 07:24] VITALS: BP 142/58; PULSE 88; RESP 16; TEMP 36.8; O2SAT 93
[2022-01-07 07:36] LABS: Glucose, Whole Blood 151 mg/dL (60-115)
[2022-01-07] MEDS: metroNIDAZOLE/NS 500 MG/100 ML PIGGYBACK 100 MG IV ×3 (07:49→23:08)
[2022-01-07] MEDS: 0.9 % Sodium Chloride Flush 3 ML SYRINGE IVFLUSH ×3 (07:50→20:24)
[2022-01-07] MEDS: Cholecalciferol (Vitamin D3) 25 MCG TABLET PO (07:50)
[2022-01-07] MEDS: amLODIPine Besylate 5 MG TABLET PO (07:50)
[2022-01-07] MEDS: Insulin Lispro 100 UNIT/ML 3 ML VIAL SUBCUT ×3 (07:50→20:22)
[2022-01-07] MEDS: rOPINIRole HCL 2 MG TABLET PO ×2 (07:50→20:22)
[2022-01-07] MEDS: Insulin Glargine,Hum.rec.anlog 100 UNIT/ML 10 ML VIAL 14 UNIT SUBCUT (07:50)
[2022-01-07] MEDS: buPROPion HCl XL 150 MG TAB.ER.24H PO (07:51)
[2022-01-07] MEDS: Docusate Sodium 100 MG CAPSULE PO ×2 (07:51→20:22)
[2022-01-07] MEDS: lisinopriL 5 MG TABLET PO (07:51)
[2022-01-07] MEDS: hydrOXYzine HCL 25 MG TABLET PO ×2 (07:51→20:22)
[2022-01-07] MEDS: Montelukast Sodium 10 MG TABLET PO (07:51)
[2022-01-07] MEDS: Atorvastatin Calcium 80 MG TABLET PO (07:51)
[2022-01-07] MEDS: Gabapentin 300 MG CAPSULE PO (07:51)
[2022-01-07] MEDS: Aspirin 81 MG TAB.CHEW PO (07:52)
[2022-01-07] MEDS: Morphine Sulfate 2 MG/ML CARTRIDGE IVPUSH ×4 (08:56→23:09)
--- NOTE | 2022-01-07 09:18 | HO.PM.IMPN ---
Subjective Subjective Date of Service: 01/07/22 Interval History: f/u on colitis interval history:c/o pain in the legs from fall last week, no abdominal pain but vomitting last night Review of Systems abdominal pain, pain in the legs Physical Exam Vital Signs: Vital Signs: Last Vital Signs Temp 98.3 F 01/07/22 07:24 Pulse 88 01/07/22 07:24 Resp 16 01/07/22 07:24 BP 142/58 H 01/07/22 07:24 Pulse Ox 93 01/07/22 07:24 O2 Del Method 01/07/22 07:24 O2 Flow Rate 2.0 01/07/22 07:24 Oxygen Flow Rate 4 01/03/22 20:28 BMI result Body Mass Index 39.9 Const: Other: General: AO X 3, no acute distress Resp: CTA bilateral CVS: S1,S2,RRR GI: +BS non specific tenderness, no distention Skin: No rash Neuro: motor grossly intact Psych: appropriate affect Objective Data Active Medications Acetaminophen (Acetaminophen 325 Mg Tablet) 650 mg PO Q6H PRN PRN Reason: Pain, Mild (Pain Scale 1-3) Last Admin: 01/04/22 07:27 Dose: 650 mg Documented By: RCIHARD Albuterol Sulfate (Albuterol Sulfate (0.042%) 1.25 Mg/3 Ml Vial.Neb) 2.5 mg INHALE Q4H PRN PRN Reason: copd Albuterol Sulfate (Albuterol Sulfate 90 Mcg 8 Gm Inhaler) 2 puff INHALE Q4H PRN PRN Reason: shortness of breath or wheezing Albuterol/Ipratropium (Albuterol/Iprat 2.5/0.5mg 3 Ml Ampul.Neb) 3 ml INHALE RQ4H PRN PRN Reason: Shortness of Breath/Wheezing Last Admin: 01/06/22 01:08 Dose: 3 ml Documented By: DAMI Amlodipine Besylate (Amlodipine Besylate 5 Mg Tablet) 5 mg PO DAILY [facility]; Protocol Last Admin: 01/07/22 07:50 Dose: 5 mg Documented By: NEGRA Aspirin (Aspirin 81 Mg Tab.Chew) 81 mg PO DAILY [facility] Last Admin: 01/07/22 07:52 Dose: 81 mg Documented By: NEGRA Atorvastatin Calcium (Atorvastatin Calcium 80 Mg Tablet) 80 mg PO DAILY [facility] Last Admin: 01/07/22 07:51 Dose: 80 mg Documented By: NEGRA Bupropion HCl (Bupropion Hcl Xl 150 Mg Tab.Er.24h) 150 mg PO DAILY [facility] Last Admin: 01/07/22 07:51 Dose: 150 mg Documented By: NEGRA Dextrose (Dextrose 50 % 25 Gm/50 Ml Syringe) 25 gm IVPUSH Q15M PRN; Protocol PRN Reason: per Hypoglycemia Standing Ord. Docusate Sodium (Docusate Sodium 100 Mg Capsule) 100 mg PO DAILY PRN PRN Reason: Constipation Docusate Sodium (Docusate Sodium 100 Mg Capsule) 100 mg PO BID [facility] Last Admin: 01/07/22 07:51 Dose: 100 mg Documented By: NEGRA Furosemide (Furosemide 20 Mg Tablet) 20 mg PO Q48H [facility]; Protocol Last Admin: 01/06/22 13:10 Dose: 20 mg Documented By: KATHARINA-TONO Gabapentin (Gabapentin 300 Mg Capsule) 300 mg PO DAILY [facility] Last Admin: 01/07/22 07:51 Dose: 300 mg Documented By: NEGRA Gabapentin (Gabapentin 300 Mg Capsule) 900 mg PO BEDTIME [facility] Last Admin: 01/06/22 20:50 Dose: 900 mg Documented By: SAROJ Glucose (Glucose Gel 15 Gm Gel..Gram.) 15 gm PO Q15M PRN; Protocol PRN Reason: per Hypoglycemia Standing Ord. Heparin Sodium (Porcine) (Heparin Sodium,Porcine 5,000 Unit/Ml Vial) 5,000 unit SUBCUT Q12H [facility] Last Admin: 01/06/22 23:28 Dose: 5,000 unit Documented By: SAROJ Hydroxyzine HCl (Hydroxyzine Hcl 25 Mg Tablet) 25 mg PO BID [facility] Last Admin: 01/07/22 07:51 Dose: 25 mg Documented By: NEGRA Levofloxacin (Levaquin) 750 mg in 150 mls @ 100 mls/hr IV Q48H [facility] Last Infusion: 01/05/22 23:13 Dose: 0 mls/hr Documented By: TOOTIE Metronidazole (Flagyl) 500 mg in 100 mls @ 100 mls/hr IV Q8H [facility] Last Infusion: 01/07/22 09:00 Dose: 0 mls/hr Documented By: NEGRA Insulin Glargine (Insulin Glargine,Hum.Rec.Anlog 100 Unit/Ml 10 Ml Vial) 14 unit SUBCUT DAILY [facility] Last Admin: 01/07/22 07:50 Dose: 14 unit Documented By: NEGRA Insulin Human Lispro (Insulin Lispro 100 Unit/Ml 3 Ml Vial) 0 unit SUBCUT QIDACHS [facility]; Protocol Last Admin: 01/07/22 07:50 Dose: 2 unit Documented By: NEGRA Lisinopril (Lisinopril 5 Mg Tablet) 5 mg PO DAILY [facility]; Protocol Last Admin: 01/07/22 07:51 Dose: 5 mg Documented By: NEGRA Montelukast Sodium (Montelukast Sodium 10 Mg Tablet) 10 mg PO DAILY [facility] Last Admin: 01/07/22 07:51 Dose: 10 mg Documented By: NEGRA Morphine Sulfate (Morphine Sulfate 2 Mg/Ml Cartridge) 2 mg IVPUSH Q3H PRN; Protocol PRN Reason: Pain, Severe (Pain Scale 7-10) Last Admin: 01/07/22 08:56 Dose: 2 mg Documented By: NEGRA Ondansetron HCl (Ondansetron Hcl 4 Mg/2 Ml Vial) 4 mg IVPUSH Q8H PRN PRN Reason: Nausea and Vomiting Last Admin: 01/06/22 21:22 Dose: 4 mg Documented By: SAROJ Pharmacy Consult (Consult Rx Perform Med Rec) 1 each MISCELLANE ONCE PRN PRN Reason: Consult order Ropinirole HCl (Ropinirole Hcl 2 Mg Tablet) 2 mg PO BID [facility] Last Admin: 01/07/22 07:50 Dose: 2 mg Documented By: NEGRA Sodium Chloride (0.9 % Sodium Chloride Flush 3 Ml Syringe) 3 ml IVFLUSH QSHIFT [facility] Last Admin: 01/07/22 07:50 Dose: 3 ml Documented By: NEGRA Trazodone HCl (Trazodone Hcl 100 Mg Tablet) 200 mg PO BEDTIME [facility] Last Admin: 01/06/22 20:50 Dose: 200 mg Documented By: SAROJ Vitamin D (Cholecalciferol (Vitamin D3) 25 Mcg Tablet) 25 mcg PO DAILY [facility] Last Admin: 01/07/22 07:50 Dose: 25 mcg Documented By: NEGRA Labs CBC & Chem 7: 01/06/22 06:09 01/06/22 06:09 Labs: Laboratory Results - last 24 hr 01/06/22 01/06/22 01/06/22 11:02 15:25 19:21 POC Glucose 128 H 116 H 105 01/06/22 01/07/22 20:00 07:24 POC Glucose 113 151 H Microbiology Microbiology Results: Microbiology 01/04/22 Unknown Urine Culture - Final Urine Catheterized - Feng Catheter Klebsiella oxytoca Assessment and Plan (1) Colitis: Status: Acute (2) Urinary tract infection: Status: Acute (3) Morbid obesity: Status: Acute Plan 71-year-old female with past medical history as above presents to the hospital with generalized weakness found to have UTI as well as AGUSTIN # UTI, culture growing Klebsiel oxytoca sensitive to Levaquin -likely the cause of her weakness -continue Levaquin # AGUSTIN on CKD 3 --Improving, Cr back to baseline, check labs today # Colitis versus diverticulitis--clinically seem to be improving -Continue Flagyl+Levaquin -Morphine for pain -seen by GI, recommendation: -GI recommending colonoscopy down the road # leukocytosis--resollved - likely multifactorial in the setting of UTI as well as possible colitis - treat above - follow CBC # diabetes - low-dose sliding scale insulin - diabetic diet # hypertension - normal continue amlodipine, hold lisinopril in the setting of AGUSTIN #obesity--weight loss advised to minimize health risks Leg pain, recent fall --hip xray PT eval for possible rehab Need for inpatient: IV Abx for acute colitis, AGUSTIN needing IVF PT eval for possible rehab Quality Stroke Does the patient have a stroke diagnosis?: No VTE Prior VTE?: No VTE Risk Level:: Medical - moderate - high VTE Device Contraindication: Treatment Not Indicated VTE Drug Contraindication: N/A - Med Ordered
[2022-01-07 11:11] LABS: Anion Gap 13 (12-20); Blood Urea Nitrogen 18 mg/dL (9-16); Calcium 8.7 mg/dL (8.4-10.2); Carbon Dioxide 32 mmol/L (22-29); Chloride 98 mmol/L (96-108); Creatinine Clr Calc Pharmacy 32.7; Estimated Glomerular Filt Rate 32; Glucose Random 157 mg/dL (60-115); Sodium 139 mmol/L (135-145)
[2022-01-07 11:56] LABS: Glucose, Whole Blood 143 mg/dL (60-115)
[2022-01-07 12:02] VITALS: BP 122/51; PULSE 72; RESP 16; TEMP 36.2; O2SAT 96
[2022-01-07] MEDS: Heparin Sodium,Porcine 5,000 UNIT/ML VIAL 5000 UNIT SUBCUT ×2 (12:27→23:09)
[2022-01-07 15:07] VITALS: BP 113/57; PULSE 71; RESP 18; TEMP 36.2; O2SAT 91
[2022-01-07 15:35] LABS: Glucose, Whole Blood 165 mg/dL (60-115)
--- NOTE | 2022-01-07 16:15 | MHC.CM.PN ---
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
[2022-01-07 19:13] VITALS: BP 91/57; PULSE 73; RESP 18; TEMP 36.1; O2SAT 94
[2022-01-07 19:35] LABS: Glucose, Whole Blood 186 mg/dL (60-115)
[2022-01-07] MEDS: levoFLOXacin/D5W 750 MG/150 ML PIGGYBACK 100 MG IV (20:19)
[2022-01-07] MEDS: Gabapentin 300 MG CAPSULE 900 MG PO (20:21)
[2022-01-07] MEDS: traZODone HCL 100 MG TABLET 200 MG PO (20:22)
[2022-01-07 23:31] VITALS: BP 90/48; PULSE 70; RESP 17; TEMP 36.8; O2SAT 97
[2022-01-08] VITALS (8 sets, daily range): BP systolic 100–119; BP diastolic 50–59; PULSE 68–98; RESP 16–18; TEMP 36.4–36.9; O2SAT 97–98
[2022-01-08 08:02] LABS: Glucose, Whole Blood 142 mg/dL (60-115)
[2022-01-08] MEDS: Aspirin 81 MG TAB.CHEW PO (08:04)
[2022-01-08] MEDS: rOPINIRole HCL 2 MG TABLET PO ×2 (08:04→20:18)
[2022-01-08] MEDS: Cholecalciferol (Vitamin D3) 25 MCG TABLET PO (08:04)
[2022-01-08] MEDS: metroNIDAZOLE/NS 500 MG/100 ML PIGGYBACK 100 MG IV ×3 (08:04→23:36)
[2022-01-08] MEDS: Gabapentin 300 MG CAPSULE PO (08:05)
[2022-01-08] MEDS: amLODIPine Besylate 5 MG TABLET PO (08:05)
[2022-01-08] MEDS: lisinopriL 5 MG TABLET PO (08:05)
[2022-01-08] MEDS: Insulin Glargine,Hum.rec.anlog 100 UNIT/ML 10 ML VIAL 14 UNIT SUBCUT (08:05)
[2022-01-08] MEDS: hydrOXYzine HCL 25 MG TABLET PO ×2 (08:05→20:18)
[2022-01-08] MEDS: Atorvastatin Calcium 80 MG TABLET PO (08:05)
[2022-01-08] MEDS: buPROPion HCl XL 150 MG TAB.ER.24H PO (08:05)
[2022-01-08] MEDS: Montelukast Sodium 10 MG TABLET PO (08:05)
[2022-01-08] MEDS: Docusate Sodium 100 MG CAPSULE PO ×2 (08:05→20:18)
[2022-01-08] MEDS: 0.9 % Sodium Chloride Flush 3 ML SYRINGE IVFLUSH ×3 (08:06→20:19)
[2022-01-08] MEDS: Albuterol/Iprat 2.5/0.5MG 3 ML AMPUL.NEB INHALE (08:40)
[2022-01-08 10:17] LABS: Anion Gap 15 (12-20); Blood Urea Nitrogen 20 mg/dL (9-16); Calcium 8.5 mg/dL (8.4-10.2); Carbon Dioxide 28 mmol/L (22-29); Chloride 99 mmol/L (96-108); Estimated Glomerular Filt Rate 30; Glucose Random 275 mg/dL (60-115); Sodium 138 mmol/L (135-145)
[2022-01-08] MEDS: Morphine Sulfate 2 MG/ML CARTRIDGE IVPUSH (10:17)
[2022-01-08 11:21] LABS: Glucose, Whole Blood 227 mg/dL (60-115)
[2022-01-08] MEDS: Heparin Sodium,Porcine 5,000 UNIT/ML VIAL 5000 UNIT SUBCUT ×2 (11:44→23:36)
[2022-01-08] MEDS: Insulin Lispro 100 UNIT/ML 3 ML VIAL SUBCUT ×3 (11:44→20:19)
--- NOTE | 2022-01-08 14:48 | P.PNIM_ITS ---
Subjective Subjective Date of Service: 01/08/22 Interval History: Seen and examined this morning Reporting back pain and leg pain since fall last Thursday No abdominal pain, denies diarrhea Review of Systems Review of Systems: Yes all other systems are reviewed and are negative Constitutional Constitutional: Denies chills and Denies fever(s) Cardiovascular Cardiovascular: Denies chest pain, Denies palpitations and Denies dyspnea Respiratory Respiratory: Denies dyspnea Gastrointestinal Gastrointestinal: Denies abdominal pain, Denies nausea and Denies vomiting Endocrine Endocrine: Denies palpitations Physical Exam Vital Signs: Vital Signs: Last Vital Signs Temp 97.5 F 01/08/22 11:32 Pulse 69 01/08/22 11:38 Resp 16 01/08/22 11:32 BP 119/53 L 01/08/22 11:38 Pulse Ox 98 01/08/22 11:38 O2 Del Method 01/08/22 11:32 O2 Flow Rate 2.0 01/08/22 11:32 Oxygen Flow Rate 4 01/03/22 20:28 BMI result Body Mass Index 39.9 Const: General: comfortable and no acute distress Nutritional Appearance: obese Orientation/consciousness: patient oriented x3 Resp: Effort & Inspection: normal respiratory effort and able to speak in complete sentences Cardio: Rate: regular rate Heart sounds: S1 normal heart sound present and S2 normal heart sound present GI: Inspection: No distended Palpation (GI): Soft to palpation and nontender Neuro: General: patient oriented x3 Extrem: Other: Able to move all 4 extremities spontaneously General: Yes no pedal edema Objective Data Active Medications Acetaminophen (Acetaminophen 325 Mg Tablet) 650 mg PO Q6H PRN PRN Reason: Pain, Mild (Pain Scale 1-3) Last Admin: 01/04/22 07:27 Dose: 650 mg Documented By: RICHARD Albuterol Sulfate (Albuterol Sulfate (0.042%) 1.25 Mg/3 Ml Vial.Neb) 2.5 mg INHALE Q4H PRN PRN Reason: copd Albuterol Sulfate (Albuterol Sulfate 90 Mcg 8 Gm Inhaler) 2 puff INHALE Q4H PRN PRN Reason: shortness of breath or wheezing Albuterol/Ipratropium (Albuterol/Iprat 2.5/0.5mg 3 Ml Ampul.Neb) 3 ml INHALE RQ4H PRN PRN Reason: Shortness of Breath/Wheezing Last Admin: 01/08/22 08:40 Dose: 3 ml Documented By: LUIS ALFREDO Amlodipine Besylate (Amlodipine Besylate 5 Mg Tablet) 5 mg PO DAILY [facility]; Protocol Last Admin: 01/08/22 08:05 Dose: 5 mg Documented By: NEGRA Aspirin (Aspirin 81 Mg Tab.Chew) 81 mg PO DAILY [facility] Last Admin: 01/08/22 08:04 Dose: 81 mg Documented By: NEGRA Atorvastatin Calcium (Atorvastatin Calcium 80 Mg Tablet) 80 mg PO DAILY [facility] Last Admin: 01/08/22 08:05 Dose: 80 mg Documented By: NEGRA Bupropion HCl (Bupropion Hcl Xl 150 Mg Tab.Er.24h) 150 mg PO DAILY [facility] Last Admin: 01/08/22 08:05 Dose: 150 mg Documented By: NEGRA Dextrose (Dextrose 50 % 25 Gm/50 Ml Syringe) 25 gm IVPUSH Q15M PRN; Protocol PRN Reason: per Hypoglycemia Standing Ord. Docusate Sodium (Docusate Sodium 100 Mg Capsule) 100 mg PO DAILY PRN PRN Reason: Constipation Docusate Sodium (Docusate Sodium 100 Mg Capsule) 100 mg PO BID [facility] Last Admin: 01/08/22 08:05 Dose: 100 mg Documented By: NEGRA Furosemide (Furosemide 20 Mg Tablet) 20 mg PO Q48H [facility]; Protocol Last Admin: 01/08/22 11:45 Dose: Not Given Documented By: NEGRA Non-Admin Reason: Patient Refused Gabapentin (Gabapentin 300 Mg Capsule) 300 mg PO DAILY [facility] Last Admin: 01/08/22 08:05 Dose: 300 mg Documented By: NEGRA Gabapentin (Gabapentin 300 Mg Capsule) 900 mg PO BEDTIME [facility] Last Admin: 01/07/22 20:21 Dose: 900 mg Documented By: SAROJ Glucose (Glucose Gel 15 Gm Gel..Gram.) 15 gm PO Q15M PRN; Protocol PRN Reason: per Hypoglycemia Standing Ord. Heparin Sodium (Porcine) (Heparin Sodium,Porcine 5,000 Unit/Ml Vial) 5,000 unit SUBCUT Q12H [facility] Last Admin: 01/08/22 11:44 Dose: 5,000 unit Documented By: NEGRA Hydroxyzine HCl (Hydroxyzine Hcl 25 Mg Tablet) 25 mg PO BID [facility] Last Admin: 01/08/22 08:05 Dose: 25 mg Documented By: NEGRA Levofloxacin (Levaquin) 750 mg in 150 mls @ 100 mls/hr IV Q48H [facility] Last Infusion: 01/07/22 22:03 Dose: 0 mls/hr Documented By: SAROJ Metronidazole (Flagyl) 500 mg in 100 mls @ 100 mls/hr IV Q8H [facility] Last Infusion: 01/08/22 09:07 Dose: 0 mls/hr Documented By: NEGRA Insulin Glargine (Insulin Glargine,Hum.Rec.Anlog 100 Unit/Ml 10 Ml Vial) 14 unit SUBCUT DAILY [facility] Last Admin: 01/08/22 08:05 Dose: 14 unit Documented By: NEGRA Insulin Human Lispro (Insulin Lispro 100 Unit/Ml 3 Ml Vial) 0 unit SUBCUT QIDACHS [facility]; Protocol Last Admin: 01/08/22 11:44 Dose: 4 unit Documented By: NEGRA Lisinopril (Lisinopril 5 Mg Tablet) 5 mg PO DAILY [facility]; Protocol Last Admin: 01/08/22 08:05 Dose: 5 mg Documented By: NEGRA Montelukast Sodium (Montelukast Sodium 10 Mg Tablet) 10 mg PO DAILY [facility] Last Admin: 01/08/22 08:05 Dose: 10 mg Documented By: NEGRA Morphine Sulfate (Morphine Sulfate 2 Mg/Ml Cartridge) 2 mg IVPUSH Q3H PRN; Protocol PRN Reason: Pain, Severe (Pain Scale 7-10) Last Admin: 01/08/22 10:17 Dose: 2 mg Documented By: NEGRA Ondansetron HCl (Ondansetron Hcl 4 Mg/2 Ml Vial) 4 mg IVPUSH Q8H PRN PRN Reason: Nausea and Vomiting Last Admin: 01/06/22 21:22 Dose: 4 mg Documented By: SAROJ Pharmacy Consult (Consult Rx Perform Med Rec) 1 each MISCELLANE ONCE PRN PRN Reason: Consult order Ropinirole HCl (Ropinirole Hcl 2 Mg Tablet) 2 mg PO BID [facility] Last Admin: 01/08/22 08:04 Dose: 2 mg Documented By: NEGRA Sodium Chloride (0.9 % Sodium Chloride Flush 3 Ml Syringe) 3 ml IVFLUSH QSHIFT [facility] Last Admin: 01/08/22 08:06 Dose: 3 ml Documented By: NEGRA Trazodone HCl (Trazodone Hcl 100 Mg Tablet) 200 mg PO BEDTIME [facility] Last Admin: 01/07/22 20:22 Dose: 200 mg Documented By: SAROJ Vitamin D (Cholecalciferol (Vitamin D3) 25 Mcg Tablet) 25 mcg PO DAILY [facility] Last Admin: 01/08/22 08:04 Dose: 25 mcg Documented By: NEGRA Labs CBC & Chem 7: 01/06/22 06:09 01/08/22 09:59 Labs: Laboratory Results - last 24 hr 01/07/22 01/07/22 01/08/22 15:06 19:18 07:10 Anion Gap Estim Creat Clear Calc Estimated GFR POC Glucose 165 H 186 H 142 H Random Glucose Calcium 01/08/22 01/08/22 09:59 11:11 Anion Gap 15 Estim Creat Clear Calc 31.0 Estimated GFR 30 POC Glucose 227 H Random Glucose 275 H Calcium 8.5 Assessment and Plan (1) Colitis: Status: Acute Plan 71-year-old female with past medical history as above presents to the hospital with generalized weakness found to have UTI as well as AGUSTIN Back pain T11 sclerotic lesion Patient had a bone scan in 2020 with no significant abnormality present in the T11 vertebral body suggesting nonaggressive lesion Appears to have increased in size on repeat imaging, would consider outpatient follow-up eval by PT, states that pain is not limiting functional activity pain control UTI, culture growing Klebsiel oxytoca sensitive to Levaquin -likely the cause of her weakness -continue Levaquin day #4 -blood cultures negative to date AGUSTIN on CKD 3 Creatinine seems to fluctuate, seems within baseline at this time Colitis versus diverticulitis--clinically seem to be improving -Continue Flagyl+Levaquin -Morphine for pain -seen by GI - GI recommending outpatient colonoscopy leukocytosis--resolved - likely multifactorial in the setting of UTI as well as possible colitis diabetes -continue lantus - low-dose sliding scale insulin - diabetic diet hypertension - normal continue amlodipine - lisinopril resumed obesity--weight loss advised to minimize health risks PT eval --recommend home with home PT Need for inpatient: IV Abx for acute colitis, UTI Attending-Dr. Tang Quality Stroke Does the patient have a stroke diagnosis?: No VTE Prior VTE?: No VTE Risk Level:: Medical - moderate - high VTE Device Contraindication: Treatment Not Indicated VTE Drug Contraindication: N/A - Med Ordered
[2022-01-08 15:34] LABS: Glucose, Whole Blood 236 mg/dL (60-115)
[2022-01-08 19:35] LABS: Glucose, Whole Blood 212 mg/dL (60-115)
[2022-01-08] MEDS: Gabapentin 300 MG CAPSULE 900 MG PO (20:19)
[2022-01-08] MEDS: traZODone HCL 100 MG TABLET 200 MG PO (20:19)
[2022-01-08] MEDS: oxyCODONE HCl Immed Release 5 MG TABLET PO (20:23)
[2022-01-09] MEDS: oxyCODONE HCl Immed Release 5 MG TABLET PO (02:53)
[2022-01-09 04:00] VITALS: BP 100/45; PULSE 63; RESP 17; TEMP 36.4; O2SAT 95
[2022-01-09 07:15] VITALS: BP 110/53; PULSE 66; RESP 18; TEMP 36.4; O2SAT 98
[2022-01-09 07:27] LABS: Glucose, Whole Blood 183 mg/dL (60-115)
[2022-01-09] MEDS: Insulin Glargine,Hum.rec.anlog 100 UNIT/ML 10 ML VIAL 14 UNIT SUBCUT (07:39)
[2022-01-09] MEDS: Insulin Lispro 100 UNIT/ML 3 ML VIAL SUBCUT (07:39)
[2022-01-09] MEDS: rOPINIRole HCL 2 MG TABLET PO (07:41)
[2022-01-09] MEDS: amLODIPine Besylate 5 MG TABLET PO (07:41)
[2022-01-09] MEDS: Montelukast Sodium 10 MG TABLET PO (07:41)
[2022-01-09] MEDS: Cholecalciferol (Vitamin D3) 25 MCG TABLET PO (07:41)
[2022-01-09] MEDS: buPROPion HCl XL 150 MG TAB.ER.24H PO (07:41)
[2022-01-09] MEDS: Gabapentin 300 MG CAPSULE PO (07:41)
[2022-01-09] MEDS: Atorvastatin Calcium 80 MG TABLET PO (07:41)
[2022-01-09] MEDS: lisinopriL 5 MG TABLET PO (07:41)
[2022-01-09] MEDS: Aspirin 81 MG TAB.CHEW PO (07:42)
[2022-01-09] MEDS: 0.9 % Sodium Chloride Flush 3 ML SYRINGE IVFLUSH (07:42)
[2022-01-09] MEDS: hydrOXYzine HCL 25 MG TABLET PO (07:42)
[2022-01-09] MEDS: Docusate Sodium 100 MG CAPSULE PO (07:42)
[2022-01-09] MEDS: metroNIDAZOLE/NS 500 MG/100 ML PIGGYBACK 100 MG IV (07:42)
--- NOTE | 2022-01-09 09:51 | P.DS_ITS ---
DS: Providers Provider Date of Service: 01/09/22 Date of admission: 01/03/22 23:44 Date of discharge: 01/09/22 Primary care physician: Shelbi Dumont MD Consults: 01/04/22 06:33 Consult to Gastroenterology Routine Consulting Provider: Britton Aceves Reason for consultation: abdnormal Abd CT Has provider been notified: No Attending physician on discharge: Kingsley Tang Discharging clinician: Elmira Henry DS: Diagnosis Discharge Diagnosis (1) Colitis: Status: Acute DS: Summary Hospital Course Hospital Course: From H&P on day of admission This is a 71-year-old female with extensive past medical history that includes anemia, CKD, COPD, diabetes, GERD, history of diverticulitis, HLD, depression anxiety, restless leg syndrome, among others who presents to the hospital with complaints of generalized weakness. .? Shunt reports that for the past 1 week she has had difficulty with increased worsening weakness, she has been feeling dizzy, she went use the bathroom today, sat in the toilet, and was unable to get up therefore EMS was called.? Patient reports some nausea with no vomiting, decreased oral intake, reports that she has only been drinking some juice and very minimal water intake, she has had poor appetite, she reports chills with no fever, reports a chronic cough that has not worsened, reports no worsening shortness of breath or sputum production.? Reports no diarrhea constipation.? Reports that her urine has been decrease, has decreased urine output as well as dysuria.? Patient reports no lower extremity edema.? On arrival to the ED patient hemodynamically stable no significant abnormal vitals.? Of note patient uses 2 L of oxygen at home chronically, currently satting in the high 90s. Labs are significant for WBC count of 15.7, hemoglobin of 11.1 which is around her baseline, BUN of 27, creatinine of 1.87 with a baseline of around 1.2-1.5, LDH of 254, lactic acid normal, UA positive for leukocyte Estrace and WBC, Abdominal pelvic CT shows concern for possible diverticulitis versus colitis infectious versus noninfectious etiology.? This appears improved in the appearance of bowel adjacent to the abdominal wall on the left but there are felt to be a new area of concern in the region and this is felt to be involving large bowel in the region of the splenic flexure, diverticulitis versus colitis. Patient will be admitted for further management Discharge diagnoses: Probable diverticulitis UTI AGUSTIN on CKD 3 Mechanical fall pain secondary to mechanical fall Hospital course by problem: Back pain T11 sclerotic lesion on imaging. No leg weakness. Patient had a bone scan in 2020 with no significant abnormality present in the T11 vertebral body suggesting nonaggressive lesion. Appears to have increased in size on repeat imaging, would consider outpatient follow-up.patient was initially treated for pain with IV narcotics but was able to be weaned off. She was evaluated by PT, states that pain is not limiting functional activity and recommended to discharge her home with home physical therapy. UTI, culture growing Klebsiel oxytoca sensitive to Levaquin She will be discharged home to complete a course of antibiotics. Blood cultures have remained negative to date AGUSTIN on CKD 3 Creatinine seems to fluctuate, seems within baseline at this time Colitis versus diverticulitis. She was treated with IV levofloxacin and Flagyl. Leukocytosis resolved. Diarrhea resolved. Patient has no abdominal pain and is tolerating a regular diet. She was seen by GI who recommended an outpatient colonoscopy in the near future. Time Spent with Patient Time attestation: Total time spent providing and/or coordinating discharge services: Discharge coordination time: Greater than 30 minutes Quality: Safe Use of Opioids Does Pt have an Active Cancer Diagnosis on the Problem List?: No Quality: Stroke Does the patient have a stroke diagnosis?: No Physical Exam Vital Signs: Vital Signs: Last Vital Signs Temp 97.6 F 01/09/22 07:15 Pulse 66 01/09/22 07:15 Resp 18 01/09/22 07:15 BP 110/53 L 01/09/22 07:15 Pulse Ox 98 01/09/22 07:15 O2 Del Method 01/09/22 07:15 O2 Flow Rate 2.0 01/09/22 07:15 Oxygen Flow Rate 4 01/03/22 20:28 BMI result Body Mass Index 39.9 Const: General: comfortable and no acute distress Nutritional Appearance: obese Orientation/consciousness: patient oriented x3 Resp: Effort & Inspection: normal respiratory effort and able to speak in complete sentences Cardio: Rate: regular rate Heart sounds: S1 normal heart sound present and S2 normal heart sound present GI: Inspection: No distended Palpation (GI): Soft to palpation and nontende r Neuro: General: patient oriented x3 Extrem: Other: Able to move all 4 extremities spontaneously General: Yes no pedal edema DS: Data Data Completed and Pending Completed studies during hospitalization [Text1]: Procedures Replacement of Left Knee Joint with Synthetic Substitute, Uncemented, Open Approach (05/28/20) Labs on day of discharge: Laboratory Results - last 24 hr 01/08/22 01/08/22 01/08/22 09:59 11:11 15:10 Sodium 138 Potassium 4.0 Chloride 99 Carbon Dioxide 28 Anion Gap 15 BUN 20 H Creatinine 1.69 H Estim Creat Clear Calc 31.0 Estimated GFR 30 POC Glucose 227 H 236 H Random Glucose 275 H Calcium 8.5 01/08/22 01/09/22 19:16 07:13 Sodium Potassium Chloride Carbon Dioxide Anion Gap BUN Creatinine Estim Creat Clear Calc Estimated GFR POC Glucose 212 H 183 H Random Glucose Calcium Discharge Plan Discharge Patient Disposition: Home Health Service Discharge Diagnosis: UTI colitis CKD3 Referrals: [facility] [Other] - 1 Day ([facility]UMPTION OF HER [facility] FOR NRUSING FOR DIAGNOSIS SIGN SYMPTOM MANAGEMENT AND HOME PT OF OCYGEN CONSUMPTION AND TREATMENT SELF RESUMPTION OF HER HOME O2 CO TRANSPORTATION FAMILY PCP DR SHELBI DUMONT PATIENT INSTRUCTED TO CLAL FOR APPOINTMENT TO BE SEEN POST HOSPITLA DISCHARGE ) Shelbi Dumont MD [Primary Care Provider] - 1 Week Britton Aceves MD [Physician] - 1 Week Discharge Medications: New levofloxacin 500 mg tablet 500 mg PO DAILY 5 Days Qty: 5 0RF metronidazole 500 mg tablet 500 mg PO Q8H 5 Days Qty: 15 0RF Continued ropinirole 2 mg tablet 2 mg PO BID 90 Days Qty: 180 1RF montelukast 10 mg tablet 10 mg PO DAILY Qty: 90 1RF amlodipine [Norvasc] 5 mg tablet 5 mg PO DAILY 30 Days Qty: 90 0RF atorvastatin 80 mg tablet 80 mg PO DAILY 90 Days Qty: 90 0RF hydroxyzine pamoate 25 mg capsule 1 cap PO BID gabapentin 300 mg capsule 300 mg PO DAILY Levemir FlexTouch U-100 Insuln 100 unit/mL (3 mL) insulin pen 20 unit subcut DAILY lisinopril 5 mg tablet 1 tab PO DAILY Hold Instructions: Resume on 12/10/21. trazodone 100 mg tablet 200 mg PO BEDTIME aspirin 81 mg Tablet,Chewable 81 mg PO DAILY docusate sodium [Colace] 100 mg capsule 100 mg PO BID Qty: 60 2RF furosemide 20 mg tablet 1 tab PO Q OTHER DAY cholecalciferol (vitamin D3) 25 mcg (1,000 unit) Capsule 25 mcg PO DAILY gabapentin 300 mg capsule 900 mg PO BEDTIME Rx Instructions: pt takes 1 300mg in am and pm and 3 and bedtime bupropion HCl 150 mg tablet extended release 24 hr 150 mg PO DAILY albuterol sulfate [ProAir HFA] 90 mcg/actuation HFA aerosol inhaler 2 puff inhalation Q4-6H PRN (Reason: shortness of breath or wheezing) 30 Days Qty: 8.5 2RF albuterol sulfate 1.25 mg/3 mL solution for nebulization 2.5 mg inhalation Q4-6H MDD copd PRN (Reason: copd) 30 Days Qty: 90 2RF No Action (DME) [facility]ancets [facility] See Rx Instructions topical TID Qty: 100 3RF Rx Instructions: once a day (DME) Depend Underwear For Women S-M [facility] [place] See Rx Instructions .ROUTE .MEDSUPPLY Qty: 64 6RF Rx Instructions: 2 times a day as needed (DME) pen needle, diabetic [BD Ultra-Fine Mini Pen Needle] 31 gauge x 3/16 needle See Rx Instructions .Route Qty: 100 2RF Rx Instructions: Use to administer insulin twice daily (DME) FreeStyle Lite Strips Strip See Rx Instructions .Route Rx Instructions: Use to check blood sugar twice daily and when having symptoms of hypo/hyperglycemia (DME) pen needle, diabetic 31 gauge x 3/16 needle See Rx Instructions subcut TID Qty: 100 1RF Rx Instructions: As directed (DME) AeroEclipse II Nebulizer [facility] [place] See Rx Instructions .ROUTE .MEDSUPPLY Qty: 1 0RF Rx Instructions: As directed (DME) oxygen-air delivery systems Device See Rx Instructions .ROUTE .MEDSUPPLY Qty: 1 Rx Instructions: As directed Discharge Orders: Discharge Order (Routine); Ordered 01/09/22 Ordered By: Elmira Henry Activity on Discharge: As tolerated Stand Alone Forms: Patient Portal Discharge page Care Plan Goals: see below Health Concerns: UTI probable diverticulitis Plan of Treatment: complete course of antibiotics as prescribed You will be discharged home with physical therapy at home Call to schedule a follow-up appointment with your PCP Call to schedule a follow-up appointment with Gastroenterology to schedule a colonoscopy Assessment: see discharge summary Discharge Date/Time: 01/09/22 12:27
--- NOTE | 2022-01-09 11:14 | P.F2F_ITS ---
Service Date Service Date: 01/09/22 Encounter Date of encounter: 01/09/22 Reasons for Services Signs and symptoms assessed: increased lateral weight shift, slow carli, decreased heel to toe Reason for physical therapy: home safety and mobility, therapeutic exercises and gait/transfer training MD Overseeing Care: Shelbi Perez Homebound: Leaving the home is medically contraindicated at this time without the asist of a device and/or another person due th the listed conditions above and below. Reason homebound: unsteady gait / fall risk Certification: Based on the above findings, I certify that this patient is confined to the home and needs intermittent [facility] care, physical therapy and/or speech therapy, or continues to need occupational therapy. The patient is under my care, and I have initiated the establishment of the plan of care. The patient will be followed by a physician who will periodically review the plan of care.
--- NOTE | 2022-01-09 13:19 | MHC.CM.PN ---
NURSE CASR VERIFY REP NOTE PATIENT WAS DISCUAHRED BEFORE I WAS ABLE TO ENTER HER D/C PAPERWORK IN TO HER D/C PLAN I CALLED HER AND SPOKE WITH HER AND INFORMED HER THYAT SHE WILL BE HAVING THE RESUIMPTION OF HER [facility] for nur[facility] and home pt and i requested they call her to let them know when they will be coming out discharge plan home with [facility] for nsg and home pt self resumtpion of her home oe pcp patient to contact pcp and make post hospitla dischagre follow up transportation family
== END 2022-01-09 12:27 | disposition home health service (06) | DRG 690 ==
LOC: HO.ED 22:51 → HO.EDOVER 23:59 → HO.S3 01-04 20:43
PROVIDERS: Hospitalist; Internal Medicine; Admitting Provider Internal Medicine; Emergency Provider Emergency Medicine; PCP Internal Medicine; Responsible Provider Physician Assistant Medical; Visit Provider Physician Assistant Medical
DX: N39.0 Urinary tract infection, site not specified (principal); N17.9 Acute kidney failure, unspecified; E66.01 Morbid (severe) obesity due to excess calories; J44.9 Chronic obstructive pulmonary disease, unspecified; E78.5 Hyperlipidemia, unspecified; D72.829 Elevated white blood cell count, unspecified; E86.0 Dehydration; K57.30 Diverticulosis of large intestine without perforation or abscess without bleeding; I12.9 Hypertensive chronic kidney disease with stage 1 through stage 4 chronic kidney disease, or unspecified chronic kidney disease; N18.30 Chronic kidney disease, stage 3 unspecified; K52.9 Noninfective gastroenteritis and colitis, unspecified; E11.22 Type 2 diabetes mellitus with diabetic chronic kidney disease; Z20.822 Contact with and (suspected) exposure to COVID-19; Z99.81 Dependence on supplemental oxygen; Z91.81 History of falling; Z68.39 Body mass index [BMI] 39.0-39.9, adult; Z88.8 Allergy status to other drugs, medicaments and biological substances; Z79.4 Long term (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 insulin; Z79.82 Long term (current) use of aspirin; Z79.899 Other long term (current) drug therapy
CPT/HCPCS: 36415; 74176; 80048; 80076; 81001; 81003; 82803; 82947; 83605; 83615; 83690; 83735; 83880; 84484; 85025; 85027; 85610; 87040; 87086; 87088; 87186; 87635; 93005; 93970; 96361; 96374; 97116; 97162; 99285; J1956; J2270; J2405; J2543

== ENCOUNTER 2022-02-25 11:08 | Outpatient (REF) | payer MEDICARE, MEDICAID, SELFPAY ==
[2022-02-25 14:11] LABS: Anion Gap 18 (12-20); Blood Urea Nitrogen 25 mg/dL (9-16); Calcium 9.2 mg/dL (8.4-10.2); Carbon Dioxide 27 mmol/L (22-29); Chloride 101 mmol/L (96-108); Estimated Glomerular Filt Rate 33; Glucose Random 174 mg/dL (60-115); Potassium 4.5 mmol/L (3.3-5.1); Sodium 141 mmol/L (135-145)
== END 2022-02-25 11:09 | disposition home or self-care (01) ==
LOC: HO.HMGCLDS 11:08
PROVIDERS: PCP Internal Medicine; Visit Provider Internal Medicine Hypertension Specialist
DX: N18.32 Chronic kidney disease, stage 3b (principal)
CPT/HCPCS: 36415; 80048

== ENCOUNTER 2022-04-17 11:12 | Emergency (ER) | payer MEDICARE, MEDICAID, SELFPAY ==
--- NOTE | ~2022-04-17 | CT_ITS ---
EXAMINATION: CT ABDOMEN AND PELVIS WITHOUT CONTRAST CLINICAL INFORMATION: Bilateral lower abdomen pain COMPARISON: 01/03/2022 TECHNIQUE: Multidetector volumetric imaging was performed from the superior aspect of the liver through the pubic symphysis. Sagittal and coronal reformatted images were obtained on the technologist's workstation. This CT examination was performed using dose optimization techniques as appropriate, variously including the following: *Automated exposure control *Adjustment of mA and/or kV according to patient size (this includes techniques or standardized protocols for targeted exams where dose is matched to indication/reason for exam; i.e. extremities or head) *Use of iterative reconstruction technique DLP: 2005 mGy-cm FINDINGS: Suboptimal assessment in some regions due to motion artifact. LUNG BASES: Mild dependent patchy right basilar opacity. LIVER, GALLBLADDER, AND BILIARY TREE: The liver is normal in size, shape, and attenuation. No focal hepatic lesion or biliary ductal dilatation is identified. The bladder appears absent. PANCREAS: Unremarkable. SPLEEN: Unremarkable. ADRENAL GLANDS: Unremarkable. KIDNEYS AND URETERS: No hydronephrosis or obstructing calculus bilaterally. There are left lower pole renal calculi measuring up to approximately 6 mm. BLADDER: Unremarkable. GASTROINTESTINAL TRACT: No evidence of bowel obstruction. Suture line is present in the sigmoid colon. There is colonic diverticulosis without diverticulitis. No free fluid or free air is seen. ABDOMINAL WALL: No significant hernia is appreciated. LYMPH NODES: Normal. VASCULAR: Mild scattered atherosclerotic calcifications. PELVIC VISCERA: Status post hysterectomy. OSSEOUS STRUCTURES: Redemonstrated sclerotic focus in the T11 vertebral body, similar to prior. Degenerative changes are noted in the spine. CT/CT abdomen pelvis wo IV con IMPRESSION: No acute findings identified in the abdomen/pelvis.
[2022-04-17 11:20] VITALS: BP 158/61; PULSE 80; O2SAT 98
[2022-04-17 11:28] VITALS: BP 101/65; PULSE 90; RESP 20; TEMP 36.6; O2SAT 94; BMI 33.6
[2022-04-17 11:47] LABS: MANUAL DIFF FLAG NO
[2022-04-17 11:48] LABS: Basophils Percent Auto 0.3 % (0-2); Eosinophils Absolute Auto 0.3 X10*3/uL (0.0-0.4); Eosinophils Percent Auto 2.5 % (0-4); Hematocrit 37.3 % (37.0-47.0); Hemoglobin 11.9 g/dl (12.0-16.0); Imm Gran Abs Auto 0.03 X10*3/uL (0.00-0.03); Imm Gran Pct Auto 0.3 % (0.0-0.4); Lymphocytes Absolute Auto 2.3 X10*3/uL (1.2-4.9); Lymphocytes Percent Auto 21.9 % (20-40); Mean Corpuscular HGB Conc 31.9 g/dl (31.0-35.0); Mean Corpuscular Hemoglobin 27.3 pg (27.0-33.0); Mean Corpuscular Volume 85.6 fL (80.0-98.0); Mean Platelet Volume 11.3 fL (9.4-12.3); Monocytes Absolute Auto 0.6 X10*3/uL (0.1-1.2); Monocytes Percent Auto 5.4 % (2-11); Neutrophils Absolute Auto 7.3 x10*3/uL (2.0-8.3); Neutrophils Percent Auto 69.6 % (45-73); Platelet Count 226 X10*3/uL (160-400); Red Blood Count 4.36 X10*6/uL (4.20-5.50); Red Cell Distribution Width 12.9 % (11.0-16.0); White Blood Count 10.4 X10*3/uL (4.8-10.8)
[2022-04-17 12:16] LABS: Alanine Aminotransferase 19 U/L (0-31); Albumin Level 3.8 g/dL (3.5-5.0); Alkaline Phosphatase 48 U/L (39-117); Anion Gap 17 (12-20); Aspartate Amino Transferase 28 U/L (5-31); Bilirubin Direct 0.2 mg/dL (0.0-0.5); Bilirubin Total 0.5 mg/dL (0.0-1.0); Blood Urea Nitrogen 16 mg/dL (9-16); Calcium 8.9 mg/dL (8.4-10.2); Carbon Dioxide 24 mmol/L (22-29); Chloride 102 mmol/L (96-108); Creatinine Clr Calc Pharmacy 35.4; Estimated Glomerular Filt Rate 34; Glucose Random 129 mg/dL (60-115); Lipase 14 U/L (8-78); Potassium 4.2 mmol/L (3.3-5.1); Sodium 139 mmol/L (135-145); Total Protein 6.5 g/dL (6.5-8.0)
[2022-04-17 14:33] LABS: Appearance Urine Cloudy; Color Urine Yellow; Glucose Urine UA Negative (Negative); Leukocyte Esterase Urine Moderate (2+) (Negative); Nitrite Urine Positive (Negative); PH 5.5 (5.0-9.0); Specific Gravity - Urine 1.015 (1.005-1.025); UMIC TRIGGER UACC YES; Urine Blood Trace (Negative); Urine Ketones Negative (Negative); Urine Protein Negative (Neg-Trace)
[2022-04-17 14:38] LABS: Bacteria Urine 4+ (None Seen); Hyaline Casts Urine 0-2 /LPF (0-2); RBC Urine 0-2 /HPF (0-2); UACC Culture Trigger YES; WBC Urine >50 /HPF (0-5)
[2022-04-17 21:52] VITALS: BP 150/71; PULSE 97; RESP 16; TEMP 36.4; O2SAT 93
[2022-04-17 23:02] VITALS: BP 149/67; PULSE 102; RESP 22; TEMP 36.4; O2SAT 96
--- NOTE | 2022-04-17 23:10 | ED.ABDPAIN ---
HPI - Abdominal Pain General Chief Complaint: Abdominal Pain Stated Complaint: abdominal pain Time Seen by Provider: 04/17/22 22:56 Source: patient Mode of arrival: ambulatory Limitations: no limitations History of Present Illness HPI narrative: 72-year-old female past medical history significant for hypertension, hyperlipidemia, diabetes, GERD, obesity, ALDO on CPAP, osteoarthritis, osteochondroma of the left femur, COPD on 2-3 L of oxygen at home, colitis presenting to the emergency department with complaints of lower abdominal pain, urinary frequency, urgency, dysuria as well as diarrhea x1 week worsening. Patient tells me that she has intermittent boring pain to the lower abdomen, she reports this feels like her typical UTI. Patient also reports that she has been having episodes of loose diarrhea over the past week with mucus mixed into it. Denies blood in stool. Patient tells me that she just does not feel well. Denies chest pain, shortness of breath, nausea, vomiting, headache, vision changes, dizziness fevers, chills, back pain, flank pain Denies recent antibiotic use, abnormal consumed food, recent travel Related Data Home Medications Medication Instructions Recorded Confirmed bupropion HCl 150 mg 24 hr tablet, 150 mg PO DAILY 04/25/20 02/25/22 extended release oxygen-air delivery systems ##1 04/25/20 02/25/22 gabapentin 300 mg capsule 900 mg PO BEDTIME 05/13/21 02/25/22 gabapentin 300 mg capsule 300 mg PO DAILY 06/29/21 02/25/22 hydroxyzine pamoate 25 mg capsule 1 cap PO BID 06/29/21 02/25/22 blood sugar diagnostic (FreeStyle 08/09/21 02/25/22 Lite Strips) aspirin 81 mg chewable tablet 81 mg PO DAILY 10/01/21 02/25/22 trazodone 100 mg tablet 200 mg PO BEDTIME 10/01/21 02/25/22 cholecalciferol (vitamin D3) 25 25 mcg PO DAILY 01/04/22 02/25/22 mcg (1,000 unit) capsule Previous Rx's Medication Instructions Recorded nebulizers (AeroEclipse II #1 ea 02/05/21 Nebulizer) albuterol sulfate 90 mcg/actuation 2 puff inhalation Q4-6H PRN 05/13/21 aerosol inhaler (ProAir HFA) shortness of breath or wheezing 30 days #8.5 grams lancets 28 gauge #100 ea 06/24/21 diaper,brief,adult,disposable #64 ea 06/26/21 (Depend Underwear For Women Small-Medium) pen needle, diabetic 31 gauge x #100 ea 08/09/2109/25 (BD Ultra-Fine Mini Pen Needle) pen needle, diabetic 31 gauge x #100 ea 08/12/21 3 ropinirole 2 mg tablet 2 mg PO BID 90 days #180 tabs 09/16/21 montelukast 10 mg tablet 10 mg PO DAILY #90 tabs 11/29/21 atorvastatin 80 mg tablet 80 mg PO DAILY 90 days #90 tabs 01/01/22 levofloxacin 500 mg tablet 500 mg PO DAILY 5 days #5 tabs 01/09/22 metronidazole 500 mg tablet 500 mg PO Q8H 5 days #15 tabs 01/09/22 bisacodyl 5 mg tablet,delayed 10 mg PO ONCE 1 day #2 tabs 01/14/22 release (Dulcolax (bisacodyl)) polyethylene glycol 3350 17 238 g PO ONCE 1 day #238 grams 01/14/22 gram/dose oral powder (Miralax) docusate sodium 100 mg capsule 100 mg PO BID #60 caps 02/07/22 (Colace) lisinopril 5 mg tablet 5 mg PO DAILY #90 tabs 02/07/22 adult diapers large #100 ea 02/25/22 amlodipine 5 mg tablet (Norvasc) 5 mg PO DAILY 30 days #90 tabs 03/05/22 insulin detemir U-100 100 unit/mL 20 unit (0.2 mL) subcut DAILY 90 03/05/22 (3 mL) subcutaneous pen (Levemir days #18 mL FlexTouch U-100 Insulin) albuterol sulfate 1.25 mg/3 mL 1.25 mg (3 mL) inhalation Q4-6H 03/18/22 solution for nebulization PRN shortness of breath or wheezing #150 mL furosemide 20 mg tablet 20 mg PO Q OTHER DAY edema 28 days 03/18/22 #14 tabs cefuroxime axetil 250 mg tablet 250 mg PO BID 7 days #14 tabs 04/17/22 Allergies Allergy/AdvReac Type Severity Reaction Status Date / Time adhesive tape [ADHESIVE TAPE] Allergy Intermediate RASH Verified 02/25/22 11:33 trimethobenzamide Allergy Mild NAUSEA Verified 02/25/22 11:33 [From TIGAN] environmental Allergy Intermediate Nasal Uncoded 12/30/21 16:03 congestion Review of Systems Review of Systems Constitutional : No Weight loss, No Fever, No Chills, No Fatigue, No Malaise ENT/Mouth : No sore throat, No Rhinorrhea Eyes: No Eye Pain, No Swelling, No Redness Cardiovascular : No Chest Pain, No SOB, No Dyspnea on Exertion, No Orthopnea, No Edema, No Palpitations Respiratory : No Cough, No Sputum, No Wheezing Gastrointestinal : No Nausea, No Vomiting, + Diarrhea, No Constipation, No abdominal Pain, No Hematochezia, No Melena Genitourinary : + Dysuria, + Urinary Frequency, + Hematuria, Musculoskeletal : No joint pain, No Myalgias, No Joint Swelling Skin : No Skin Lesions, No rash Neuro : No Weakness, No Numbness, No Dizziness, No Headache Psych : No Anxiety/Panic, No Depression All other systems reviewed and are negative Yes all other systems are reviewed and are negative PMFSH Past Medical History Attestation statement: The following information was validated with the patient. Source: old records reviewed and nursing notes reviewed Medical History Allergic rhinitis Anemia Arthritis CKD (chronic kidney disease) Constipation due to opioid therapy COPD exacerbation CPAP (continuous positive airway pressure) dependence Diabetes Elevated cholesterol GERD (gastroesophageal reflux disease) History of adrenal adenoma History of diverticulitis History of restless legs syndrome Hx SBO Hyperlipidemia Hypoxemia Morbid obesity Obesity (BMI 30-39.9) ALDO (obstructive sleep apnea) Osteoarthritis of left knee Osteochondroma of left femur Urinary tract infection Surgical History H/O colonoscopy H/O excision of mass H/O exploratory laparotomy History of appendectomy History of arthroscopy of left knee History of cholecystectomy History of hysterectomy History of oophorectomy History of partial colectomy History of surgery Hx of cataract extraction Family History Family History Father HTN (hypertension) Diabetes mellitus Mother HTN (hypertension) Liver cancer Social History Social History 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: Other 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 Other:: EX Housing: Apartment Are you a primary vocational childcare teacher to a significant other at home: No Do you presently have visiting nurse or other home services: No Alcohol intake: never Patient Tobacco Use Status: Never used Tobacco e-Cigarette/Vaping Use: Never Used Second Hand Smoke Exposure: No Advance Directives: No Advance Directives Date on File: 07/08/21 service: No Current occupational status: retired Cognitive needs: No Hearing needs: No Vision needs: No Physical Exam ED Vital Signs: Vital Signs - 24 hr 04/17/22 11:28 04/17/22 21:52 04/17/22 23:02 Temperature 97.9 F 97.5 F 97.5 F Pulse Rate 90 97 102 H Respiratory Rate 20 16 22 H Blood Pressure 101/65 150/71 H 149/67 H Pulse Oximetry 94 93 96 Oxygen Delivery Method Room Air Room Air Room Air 04/17/22 23:56 Temperature 97.9 F Pulse Rate 94 Respiratory Rate 15 Blood Pressure 132/61 Pulse Oximetry 94 Oxygen Delivery Method Room Air BMI result Body Mass Index 33.6 Vital signs stable Appearance: Alert.? Oriented X3.? No acute distress.? Head: Normocephalic, atraumatic, no step-offs or deformities Eyes: Pupils equal, round and reactive to light.? CVS: Normal heart rate and rhythm.? Pulses normal.? Respiratory: No respiratory distress.? Breath sounds normal.? Abdomen: Soft and diffusely tender worse in the lower abdomen. Normoactive bowel sounds Skin: Skin warm and dry.? Normal skin color.? Normal skin turgor.? Extremities: No lower extremity edema.? No calf ttp. 5/5 strength to bilateral upper and lower extremities Back: No CVA tenderness bilaterally Neuro: Oriented X 3.? No motor deficit.? No sensory deficit. CN 2-12 intact Course Reevaluation(s) Reevaluation #1: CBC appears to be around patient's baseline. Chemistry with no acute electrolyte abnormalities requiring intervention, patient's creatinine noted to be elevated however around baseline. Lipase within normal limits. UA positive for infection with leukocyte esterases and nitrates. At this time patient will be given antibiotics. Time: 23:15 Reevaluation #2: Patient's CT of the abdomen with no acute findings. Patient's pain likely secondary to urinary tract infection. No signs of pyelonephritis, no signs of intra-abdominal pathologies. Patient will be discharged home with p.o. antibiotics, advised return with new or worsening symptoms. At this time I feel comfortable discharge home with prompt PCP follow-up. Patient tells me she is unable to give us a stool sample and he does not feel like she is had to go while waiting or in our emergency department. Therefore supporting the unlikely that this is Clostridium difficile Time: 00:15 MDM - Abdominal Pain MDM Narrative Medical decision making narrative: 2310 72-year-old female presents with urinary frequency, urgency, dysuria, lower abdominal pain and diarrhea times a week. Physical examination with the diffusely tender abdomen worse in the lower region, normoactive bowel sounds, soft, nondistended. No CVA tenderness. Regular rate and rhythm, lungs clear. Neuro nonfocal. Vital signs stable. Likely cystitis versus UTI. I do not suspect pyelonephritis in this patient. Low suspicion for C diff, likely viral diarrhea or colitis. Plan at this time is to obtain basic labs, imaging, urine. Medical Records Attestation: I reviewed the patient's medical records. Lab Data Attestation: I reviewed the patient's lab results. Result diagrams: 04/17/22 11:40 04/17/22 11:40 Labs: Lab Results 04/17/22 04/17/22 04/17/22 Range/Units 11:40 11:40 14:21 WBC 10.4 (4.8-10.8) X10*3/uL RBC 4.36 D (4.20-5.50) X10*6/uL Hgb 11.9 L D (12.0-16.0) g/dl Hct 37.3 (37.0-47.0) % MCV 85.6 (80.0-98.0) fL MCH 27.3 (27.0-33.0) pg MCHC 31.9 (31.0-35.0) g/dl RDW 12.9 (11.0-16.0) % Plt Count 226 (160-400) X10*3/uL MPV 11.3 (9.4-12.3) fL Immature Gran % (Auto) 0.3 (0.0-0.4) % Neut % (Auto) 69.6 (45-73) % Lymph % (Auto) 21.9 (20-40) % [place] % (Auto) 5.4 (2-11) % Eos % (Auto) 2.5 (0-4) % Baso % (Auto) 0.3 (0-2) % Lymph # (Auto) 2.3 (1.2-4.9) X10*3/uL [place] # (Auto) 0.6 (0.1-1.2) X10*3/uL Eos # (Auto) 0.3 (0.0-0.4) X10*3/uL Baso # (Auto) 0.0 (0.0-0.2) X10*3/uL Abs Immat Gran (auto) 0.03 (0.00-0.03) X10*3/uL Absolute Neuts (auto) 7.3 (2.0-8.3) x10*3/uL Absolute Nucleated RBC 0.000 (0.0-0.012) X10*3/uL Nucleated RBC % (auto) 0.0 (0.0-0.2) /100WBC Sodium 139 (135-145) mmol/L Potassium 4.2 (3.3-5.1) mmol/L Chloride 102 (96-108) mmol/L Carbon Dioxide 24 (22-29) mmol/L Anion Gap 17 (12-20) BUN 16 (9-16) mg/dL Creatinine 1.49 H (0.5-1.4) mg/dL Estim Creat Clear Calc 35.4 Estimated GFR 34 Random Glucose 129 H (60-115) mg/dL Calcium 8.9 (8.4-10.2) mg/dL Total Bilirubin 0.5 (0.0-1.0) mg/dL Direct Bilirubin 0.2 (0.0-0.5) mg/dL AST 28 D (5-31) U/L ALT 19 (0-31) U/L Alkaline Phosphatase 48 (39-117) U/L Total Protein 6.5 (6.5-8.0) g/dL Albumin 3.8 (3.5-5.0) g/dL Lipase 14 (8-78) U/L Urine Color Yellow Urine Appearance Cloudy Urine pH 5.5 (5.0-9.0) Ur Specific [place] 1.015 (1.005-1.025) Urine Protein Negative (Neg-Trace) mg/dL Urine Glucose (UA) Negative (Negative) mg/dL Urine Ketones Negative (Negative) mg/dL Urine Blood Trace H (Negative) Urine Nitrite Positive H (Negative) Ur Leukocyte Esterase Moderate (2+) H (Negative) Urine RBC 0-2 (0-2) /HPF Urine WBC >50 H (0-5) /HPF Ur Squamous Epith Cells 3-5 (0-2) /HPF Urine Bacteria 4+ (None Seen) Hyaline Casts 0-2 (0-2) /LPF Critical Care Time Critical Care Time Critical Care Time: No Discharge Plan Discharge Clinical Impression: Lower abdominal pain, Urinary tract infection, Diarrhea Patient Disposition: Home, Self-Care Instructions: Acute Diarrhea (ED), Abdominal Pain (ED), Urinary Tract Infection in Older Adults (ED) Additional Instructions: Take your medications as prescribed. If you were prescribed antibiotics today, it is important that you take your medication to their entirety, do not skip any doses, do not finish them early. Follow-up with your primary care provider this week. Return to the emergency department with new or worsening symptoms. Such as fevers, chills, chest pain, shortness of breath, nausea, vomiting, dizziness, headache, vision changes, lethargy In case of emergency call 911 CT/CT abdomen pelvis wo IV con IMPRESSION: No acute findings identified in the abdomen/pelvis.? Prescriptions: New cefuroxime axetil 250 mg tablet 250 mg PO BID 7 Days Qty: 14 0RF No Action (DME) lancets 28 gauge misc See Rx Instructions topical TID Qty: 100 3RF Rx Instructions: once a day (DME) Depend Underwear For Women [facility] [place] .ROUTE .MEDSUPPLY Qty: 64 6RF Rx Instructions: 2 times a day as needed (DME) pen needle, diabetic [BD Ultra-Fine Mini Pen Needle] 31 gauge x 3/16 needle See Rx Instructions .Route Qty: 100 2RF Rx Instructions: Use to administer insulin twice daily (DME) FreeStyle Lite Strips Strip See Rx Instructions .Route Rx Instructions: Use to check blood sugar twice daily and when having symptoms of hypo/hyperglycemia (DME) pen needle, diabetic 31 gauge x 3/16 needle See Rx Instructions subcut TID Qty: 100 1RF Rx Instructions: As directed ropinirole 2 mg tablet 2 mg PO BID 90 Days Qty: 180 1RF montelukast 10 mg tablet 10 mg PO DAILY Qty: 90 1RF atorvastatin 80 mg tablet 80 mg PO DAILY 90 Days Qty: 90 0RF bisacodyl [Dulcolax (bisacodyl)] 5 mg tablet,delayed release (DR/EC) 10 mg PO ONCE 1 Days Qty: 2 0RF Rx Instructions: take orally as directed prior to colonoscopy polyethylene glycol 3350 [Miralax] 17 gram/dose powder 238 g PO ONCE 1 Days Qty: 238 0RF Rx Instructions: take orally as directed prior to colonoscopy lisinopril 5 mg tablet 5 mg PO DAILY Qty: 90 0RF Hold Instructions: Resume on 12/10/21. docusate sodium [Colace] 100 mg capsule 100 mg PO BID Qty: 60 2RF amlodipine [Norvasc] 5 mg tablet 5 mg PO DAILY 30 Days Qty: 90 0RF Levemir FlexTouch U-100 Insuln 100 unit/mL (3 mL) insulin pen 20 unit subcut DAILY 90 Days Qty: 18 3RF furosemide 20 mg tablet 20 mg PO Q OTHER DAY 28 Days Qty: 14 3RF albuterol sulfate 1.25 mg/3 mL solution for nebulization 1.25 mg inhalation Q4-6H PRN (Reason: shortness of breath or wheezing) Qty: 150 2RF (DME) AeroEclipse [place]ul[place] [facility] [place] [facility] [place] Instructions .ROUTE .MEDSUPPLY Qty: 1 0RF Rx Instructions: As directed hydroxyzine pamoate 25 mg capsule 1 cap PO BID gabapentin 300 mg capsule 300 mg PO DAILY trazodone 100 mg tablet 200 mg PO BEDTIME aspirin 81 mg Tablet,Chewable 81 mg PO DAILY cholecalciferol (vitamin D3) 25 mcg (1,000 unit) Capsule 25 mcg PO DAILY levofloxacin 500 mg tablet 500 mg PO DAILY 5 Days Qty: 5 0RF metronidazole 500 mg tablet 500 mg PO Q8H 5 Days Qty: 15 0RF gabapentin 300 mg capsule 900 mg PO BEDTIME Rx Instructions: pt takes 1 300mg in am and pm and 3 and bedtime (DME) adult diapers large large See Rx Instructions .Route .MEDSUPPLY Qty: 100 6RF Rx Instructions: twice a day bupropion HCl 150 mg tablet extended release 24 hr 150 mg PO DAILY (DME) oxygen-air delivery systems Device See Rx Instructions .ROUTE .MEDSUPPLY Qty: 1 Rx Instructions: As directed albuterol sulfate [ProAir HFA] 90 mcg/actuation HFA aerosol inhaler 2 puff inhalation Q4-6H PRN (Reason: shortness of breath or wheezing) 30 Days Qty: 8.5 2RF Referrals: Shelbi Perez MD [Primary Care Provider] - Interventions: LWBS Worksheet Last Done: 04/17/22 20:58
[2022-04-17 23:56] VITALS: BP 132/61; PULSE 94; RESP 15; TEMP 36.6; O2SAT 94
== END 2022-04-18 00:58 | disposition home or self-care (01) ==
PROVIDERS: Emergency Provider Internal Medicine; PCP Internal Medicine
DX: N39.0 Urinary tract infection, site not specified (principal); B96.1 Klebsiella pneumoniae [K. pneumoniae] as the cause of diseases classified elsewhere; R31.9 Hematuria, unspecified; R19.7 Diarrhea, unspecified; R10.30 Lower abdominal pain, unspecified; E11.9 Type 2 diabetes mellitus without complications; I10 Essential (primary) hypertension; E78.5 Hyperlipidemia, unspecified; E66.9 Obesity, unspecified; Z68.33 Body mass index [BMI] 33.0-33.9, adult; Z79.82 Long term (current) use of aspirin; Z79.899 Other long term (current) drug therapy; Z79.02 Long term (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 antithrombotics/antiplatelets; Z79.4 Long term (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 insulin
CPT/HCPCS: 36415; 74176; 80048; 80076; 81001; 83690; 85025; 87086; 87088; 87186; 99283; 99284

== ENCOUNTER 2022-05-02 14:39 | Outpatient (REF) | payer MEDICARE, MEDICAID, SELFPAY ==
[2022-05-02 16:39] LABS: Appearance Urine Cloudy; Color Urine Yellow; Glucose Urine UA Negative (Negative); Leukocyte Esterase Urine Moderate (2+) (Negative); Nitrite Urine Positive (Negative); PH 6.5 (5.0-9.0); Specific Gravity - Urine 1.015 (1.005-1.025); UMIC TRIGGER UACC YES; Urine Blood Trace (Negative); Urine Ketones Negative (Negative); Urine Protein Negative (Neg-Trace)
[2022-05-02 16:42] LABS: Bacteria Urine 4+ (None Seen); Hyaline Casts Urine 0-2 /LPF (0-2); RBC Urine 0-2 /HPF (0-2); UACC Culture Trigger YES; WBC Urine >50 /HPF (0-5)
[2022-05-02 17:39] LABS: CDiff Gene PCR NEGATIVE (Negative)
== END 2022-05-02 14:40 | disposition home or self-care (01) ==
LOC: HO.HMGCLDS 14:39
PROVIDERS: PCP Internal Medicine; Visit Provider Internal Medicine
DX: R19.7 Diarrhea, unspecified (principal); N39.0 Urinary tract infection, site not specified
CPT/HCPCS: 36415; 81001; 87086; 87088; 87186; 87493

== ENCOUNTER → 2022-05-14 10:20 | Outpatient (BNVA) | payer MEDICARE, MEDICAID, SELFPAY | PROVIDERS: PCP Internal Medicine; Visit Provider Internal Medicine | DX: G47.33 Obstructive sleep apnea (adult) (pediatric) (principal); J96.91 Respiratory failure, unspecified with hypoxia; J98.4 Other disorders of lung; R05.9 Cough, unspecified | CPT/HCPCS: 99212 ==

== ENCOUNTER 2022-07-10 07:45 | Emergency (ER) | payer MEDICARE, MEDICAID, SELFPAY ==
--- NOTE | ~2022-07-10 | XR_ITS ---
EXAMINATION: XR CHEST CLINICAL INFORMATION: SOB. COMPARISON: None TECHNIQUE: Frontal view of the chest was obtained. FINDINGS: The lungs are well-expanded and clear. The heart size is enlarged. Pulmonary vascularity is normal. There is moderate spondylosis dorsal spine with mild dextroscoliosis dorsal spine noted. XR/XR chest 1V IMPRESSION: Mild cardiomegaly. No acute process seen.
[2022-07-10 07:53] VITALS: BP 134/61; BP 148/90; PULSE 102; PULSE 88; RESP 17; TEMP 37; O2SAT 97; O2SAT 98; BMI 33.7
--- NOTE | 2022-07-10 08:17 | ED.SOB ---
HPI - SOB/Dyspnea General Chief Complaint: Dyspnea Stated Complaint: DIFF BREATHING,?UTI PER EMS Time Seen by Provider: 07/10/22 08:12 Source: patient Mode of arrival: EMS History of Present Illness HPI Narrative: 72-year-old female brought in by EMS with history of COPD on baseline oxygen states that she began having a cough with increased shortness of breath as well as chest pain with the cough since last night and endorses that she does use ?water pills?. She otherwise denies any fever, chills, GI symptoms but does states she has had some urinary burning. Related Data Home Medications Medication Instructions Recorded Confirmed bupropion HCl 150 mg 24 hr tablet, 150 mg PO DAILY 04/25/20 04/30/22 extended release oxygen-air delivery systems ##1 04/25/20 04/30/22 gabapentin 300 mg capsule 900 mg PO BEDTIME 05/13/21 04/30/22 gabapentin 300 mg capsule 300 mg PO DAILY 06/29/21 04/30/22 hydroxyzine pamoate 25 mg capsule 1 cap PO BID 06/29/21 04/30/22 blood sugar diagnostic (FreeStyle 08/09/21 04/30/22 Lite Strips) aspirin 81 mg chewable tablet 81 mg PO DAILY 10/01/21 04/30/22 trazodone 100 mg tablet 200 mg PO BEDTIME 10/01/21 04/30/22 cholecalciferol (vitamin D3) 25 25 mcg PO DAILY 01/04/22 04/30/22 mcg (1,000 unit) capsule Previous Rx's Medication Instructions Recorded nebulizers (AeroEclipse II #1 ea 02/05/21 Nebulizer) lancets 28 gauge #100 ea 06/24/21 pen needle, diabetic 31 gauge x #100 ea 08/09/2109/25 (BD Ultra-Fine Mini Pen Needle) pen needle, diabetic 31 gauge x #100 ea 08/12/2109/25 metronidazole 500 mg tablet 500 mg PO Q8H 5 days #15 tabs 01/09/22 bisacodyl 5 mg tablet,delayed 10 mg PO ONCE 1 day #2 tabs 01/14/22 release (Dulcolax (bisacodyl)) polyethylene glycol 3350 17 238 g PO ONCE 1 day #238 grams 01/14/22 gram/dose oral powder (Miralax) docusate sodium 100 mg capsule 100 mg PO BID #60 caps 02/07/22 (Colace) adult diapers large #100 ea 02/25/22 insulin detemir U-100 100 unit/mL 20 unit (0.2 mL) subcut DAILY 90 03/05/22 (3 mL) subcutaneous pen (Levemir days #18 mL FlexTouch U-100 Insulin) albuterol sulfate 1.25 mg/3 mL 1.25 mg (3 mL) inhalation Q4-6H 03/18/22 solution for nebulization PRN shortness of breath or wheezing #150 mL cefuroxime axetil 250 mg tablet 250 mg PO BID 7 days #14 tabs 04/30/22 levofloxacin 500 mg tablet 500 mg PO DAILY 5 days #5 tabs 05/05/22 diaper,brief,adult,disposable #64 ea 05/06/22 albuterol sulfate 90 mcg/actuation 2 puff inhalation Q4-6H PRN 05/17/22 aerosol inhaler (ProAir HFA) shortness of breath or wheezing 30 days #8.5 grams montelukast 10 mg tablet 10 mg PO DAILY #90 tabs 05/22/22 ipratropium 0.5 mg-albuterol 3 mg 3 ml inhalation Q6H PRN wheezing, 05/26/22 (2.5 mg base)/3 mL nebulization copd 30 days #180 mL soln furosemide 20 mg tablet 20 mg PO Q OTHER DAY for edema #42 06/02/22 tabs ropinirole 2 mg tablet 2 mg PO BID 90 days #180 tabs 06/02/22 amlodipine 5 mg tablet (Norvasc) 5 mg PO DAILY 30 days #90 tabs 06/25/22 atorvastatin 80 mg tablet 80 mg PO DAILY 90 days #90 tabs 06/25/22 lisinopril 5 mg tablet 5 mg PO DAILY #90 tabs 06/25/22 levofloxacin 750 mg tablet 750 mg PO DAILY 7 days #7 tabs 07/10/22 oseltamivir 30 mg capsule (Tamiflu) 30 mg PO BID 5 days #10 caps 07/10/22 Allergies Allergy/AdvReac Type Severity Reaction Status Date / Time adhesive tape [ADHESIVE TAPE] Allergy Intermediate RASH Verified 07/10/22 07:55 trimethobenzamide Allergy Mild NAUSEA Verified 07/10/22 07:55 [From TIGAN] environmental Allergy Intermediate Nasal Uncoded 07/10/22 07:55 congestion Review of Systems Review of Systems: Pertinent positives and negatives as stated in HPI PENDING SALE TO [facility] Past Medical History Source: nursing notes reviewed Medical History Allergic rhinitis Anemia Arthritis CKD (chronic kidney disease) Constipation due to opioid therapy COPD exacerbation CPAP (continuous positive airway pressure) dependence Diabetes Elevated cholesterol GERD (gastroesophageal reflux disease) History of adrenal adenoma History of diverticulitis History of restless legs syndrome Hx SBO Hyperlipidemia Hypoxemia Morbid obesity Obesity (BMI 30-39.9) ALDO (obstructive sleep apnea) Osteoarthritis of left knee Osteochondroma of left femur Respiratory failure with hypoxia Urinary tract infection Surgical History H/O colonoscopy H/O excision of mass H/O exploratory laparotomy History of appendectomy History of arthroscopy of left knee History of cholecystectomy History of hysterectomy History of oophorectomy History of partial colectomy History of surgery Hx of cataract extraction Family History Family History Father HTN (hypertension) Diabetes mellitus Mother HTN (hypertension) Liver cancer Social History Social History 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: Other 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 Other:: EX Housing: Apartment Are you a primary sub acute care nurse to a significant other at home: No Do you presently have visiting nurse or other home services: No Alcohol intake: never Patient Tobacco Use Status: Never used Tobacco e-Cigarette/Vaping Use: Never Used Second Hand Smoke Exposure: No Advance Directives: Yes Advance Directives Information Provided: Yes Advance Directives on File: No Advance Directives Date on File: 07/08/21 service: No Current occupational status: retired Cognitive needs: No Hearing needs: No Vision needs: No Physical Exam Vital Signs: Vital Signs: Last Vital Signs Temp 98.6 F 07/10/22 07:53 Pulse 85 07/10/22 09:28 Resp 19 07/10/22 09:28 BP 138/63 07/10/22 09:28 Pulse Ox 100 07/10/22 09:28 O2 Del Method 07/10/22 09:28 O2 Flow Rate 3 07/10/22 09:28 Oxygen Flow Rate 3 07/10/22 07:53 BMI result Body Mass Index 33.7 VITAL SIGNS: Reviewed. GENERAL: Well developed, well nourished, in no acute distress. HEAD: Normocephalic/atraumatic EYES: PERRLA, EOMI EARS: Ext canals without abnormality, TMs non-bulging and non-erythematous NOSE: Nares patent bilateral OROPHARYNX: no oral lesions noted, posterior pharynx clear and non-erythematous without noted tonsillar enlargement/erythema/exudates NECK: Supple, no adenopathy LUNGS: Good inspiratory effort without significant expiratory wheeze or rhonchi noted, patient does not appear to be tachypneic and is on baseline nasal cannula. SpO2<98> CARDIOVASCULAR: Regular rate and rhythm without noted murmurs, no JVD 1+ symmetrical lower extremity edema. ABDOMEN: Soft, non-tender, non-distended with bowel sounds. MUSCULOSKELETAL: No tenderness, deformities, or effusions noted on gross inspection. EXTREMITIES: No cyanosis, clubbing or edema. SKIN: Inspection of the skin reveals no rashes NEUROLOGIC: Alert and oriented x 3. Strength and sensation to light touch were grossly intact x 4. Medical Decision Making Medical Decision Making MDM Narrative: 72-year-old female arrives via EMS with shortness breath and cough related chest pain since last night she is afebrile and oxygenating well on baseline nasal cannula. She otherwise appears well. 0958: I reviewed all investigations and there is no leukocytosis or left shift and the anemia is chronically stable, VBG is negative for acidosis and pCO2 is 44, renal function appears to be chronically stable and no acute findings on chest x-ray. Patient has otherwise been oxygenating well on her baseline oxygen, she is not tachypneic nor is she febrile. On review of further testing she is noted to be influenza A positive and within the window for treatment. Due to her renal function she will be started on 30 mg b.i.d. for 5 days. She is also noted to have a UTI which is recurrent and based off of last microbiology results she is started on levofloxacin. EKG is negative for evidence of QT prolongation and additional information was given to the facility regarding follow-up on urine culture and possible antibiotic adjustment. Differential Diagnosis Differential Diagnoses: The differential diagnosis associated with the presentation includes I will rule out Viral illness, COPD exacerbation, UTI Lab Data [facility] Lab Attestation statement: I reviewed the patient's lab results. Please see discussion above Result Diagrams: 07/10/22 09:03 07/10/22 09:03 Labs: Lab Results 07/10/22 07/10/22 07/10/22 Range/Units 08:04 09:03 09:03 WBC 8.9 (4.8-10.8) X10*3/uL RBC 4.28 (4.20-5.50) X10*6/uL Hgb 11.6 L (12.0-16.0) g/dl Hct 36.5 L (37.0-47.0) % MCV 85.3 (80.0-98.0) fL MCH 27.1 (27.0-33.0) pg MCHC 31.8 (31.0-35.0) g/dl RDW 13.7 (11.0-16.0) % Plt Count 202 (160-400) X10*3/uL MPV 11.9 (9.4-12.3) fL Immature Gran % (Auto) 0.3 (0.0-0.4) % Neut % (Auto) 71.2 (45-73) % Lymph % (Auto) 18.8 L (20-40) % Carver % (Auto) 6.9 (2-11) % Eos % (Auto) 2.6 (0-4) % Baso % (Auto) 0.2 (0-2) % Lymph # (Auto) 1.7 (1.2-4.9) X10*3/uL Carver # (Auto) 0.6 (0.1-1.2) X10*3/uL Eos # (Auto) 0.2 (0.0-0.4) X10*3/uL Baso # (Auto) 0.0 (0.0-0.2) X10*3/uL Abs Immat Gran (auto) 0.03 (0.00-0.03) X10*3/uL Absolute Neuts (auto) 6.3 (2.0-8.3) x10*3/uL Absolute Nucleated RBC 0.000 (0.0-0.012) X10*3/uL Nucleated RBC % (auto) 0.0 (0.0-0.2) /100WBC VBG pH (7.32-7.43) VBG pCO2 mmHg VBG pO2 mmHg VBG HCO3 (22-26) mmol/L VBG O2 Saturation % VBG Base Excess mmol/L Sodium 140 (135-145) mmol/L Potassium 4.0 (3.3-5.1) mmol/L Chloride 103 (96-108) mmol/L Carbon Dioxide 29 (22-29) mmol/L Anion Gap 12 (12-20) BUN 18 H (9-16) mg/dL Creatinine 1.49 H (0.5-1.4) mg/dL Estim Creat Clear Calc 42.3 Estimated GFR 34 Random Glucose 237 H (60-115) mg/dL Calcium 8.9 (8.4-10.2) mg/dL Total Bilirubin 0.3 (0.0-1.0) mg/dL AST 17 (5-31) U/L ALT 18 (0-31) U/L Alkaline Phosphatase 47 (39-117) U/L Total Protein 6.3 L (6.5-8.0) g/dL Albumin 3.8 (3.5-5.0) g/dL Urine Color Urine Appearance Urine pH (5.0-9.0) Ur Specific [place] (1.005-1.025) Urine Protein (Neg-Trace) mg/dL Urine Glucose (UA) (Negative) mg/dL Urine Ketones (Negative) mg/dL Urine Blood (Negative) Urine Nitrite (Negative) Ur Leukocyte Esterase (Negative) Urine RBC (0-2) /HPF Urine WBC (0-5) /HPF Ur Squamous Epith Cells (0-2) /HPF Urine Bacteria (None Seen) Hyaline Casts (0-2) /LPF Influenza Type A (PCR) POSITIVE A (Negative) Influenza Type B (PCR) NEGATIVE (Negative) RSV RNA Qual (PCR) NEGATIVE (Negative) SARS-CoV-2 RNA (RT-PCR) NEGATIVE (Negative) 07/10/22 07/10/22 Range/Units 09:03 09:10 WBC (4.8-10.8) X10*3/uL RBC (4.20-5.50) X10*6/uL Hgb (12.0-16.0) g/dl Hct (37.0-47.0) % MCV (80.0-98.0) fL MCH (27.0-33.0) pg MCHC (31.0-35.0) g/dl RDW (11.0-16.0) % Plt Count (160-400) X10*3/uL MPV (9.4-12.3) fL Immature Gran % (Auto) (0.0-0.4) % Neut % (Auto) (45-73) % Lymph % (Auto) (20-40) % Carver % (Auto) (2-11) % Eos % (Auto) (0-4) % Baso % (Auto) (0-2) % Lymph # (Auto) (1.2-4.9) X10*3/uL Carver # (Auto) (0.1-1.2) X10*3/uL Eos # (Auto) (0.0-0.4) X10*3/uL Baso # (Auto) (0.0-0.2) X10*3/uL Abs Immat Gran (auto) (0.00-0.03) X10*3/uL Absolute Neuts (auto) (2.0-8.3) x10*3/uL Absolute Nucleated RBC (0.0-0.012) X10*3/uL Nucleated RBC % (auto) (0.0-0.2) /100WBC VBG pH 7.37 (7.32-7.43) VBG pCO2 44 mmHg VBG pO2 59 mmHg VBG HCO3 25 (22-26) mmol/L VBG O2 Saturation 85.0 % VBG Base Excess 0.2 mmol/L Sodium (135-145) mmol/L Potassium (3.3-5.1) mmol/L Chloride (96-108) mmol/L Carbon Dioxide (22-29) mmol/L Anion Gap (12-20) BUN (9-16) mg/dL Creatinine (0.5-1.4) mg/dL Estim Creat Clear Calc Estimated GFR Random Glucose (60-115) mg/dL Calcium (8.4-10.2) mg/dL Total Bilirubin (0.0-1.0) mg/dL AST (5-31) U/L ALT (0-31) U/L Alkaline Phosphatase (39-117) U/L Total Protein (6.5-8.0) g/dL Albumin (3.5-5.0) g/dL Urine Color Yellow Urine Appearance Clear Urine pH 5.5 (5.0-9.0) Ur Specific [place] 1.020 (1.005-1.025) Urine Protein Negative (Neg-Trace) mg/dL Urine Glucose (UA) 500 H (Negative) mg/dL Urine Ketones Negative (Negative) mg/dL Urine Blood Trace H (Negative) Urine Nitrite Positive H (Negative) Ur Leukocyte Esterase Small (1+) H (Negative) Urine RBC 0-2 (0-2) /HPF Urine WBC 21-50 H (0-5) /HPF Ur Squamous Epith Cells 3-5 (0-2) /HPF Urine Bacteria 4+ (None Seen) Hyaline Casts 0-2 (0-2) /LPF Influenza Type A (PCR) (Negative) Influenza Type B (PCR) (Negative) RSV RNA Qual (PCR) (Negative) SARS-CoV-2 RNA (RT-PCR) (Negative) Independent Interpretation I performed an independent interpretation of an: EKG Interpretation: Normal sinus rhythm, HR-82, no STEMI, MO/QRS/QTC are within normal limits. External Record Review External record reviewed: Prior outpatient labs Prescription Management I considered prescription management with: Antiviral Tamiflu that was renally dosed Chronic Conditions Patient?s care impacted by: Other COPD Critical Care Time Critical Care Time Critical Care Time: Yes Total Critical Care Time: 30 Attestation: I personally attest to this time spent taking care of the patient. Discharge Plan Discharge Clinical Impression: Viral syndrome, Influenza A, Acute UTI Patient Disposition: [facility] Additional Instructions: 1. Resume all home medications as prescribed. 2. Complete the entire course of antibiotics for the UTI, it will be very important to follow-up on the urine culture and adjust antibiotics as indicated. 3. Please complete the entire course of antiviral medication for the influenza a infection. 4. Please follow-up with the primary care provider in the next 1 day. May consider a urology consult regarding patient's frequent UTIs. Return to the ER for any worsening symptoms. Prescriptions: New oseltamivir [Tamiflu] 30 mg capsule 30 mg PO BID 5 Days Qty: 10 0RF levofloxacin 750 mg tablet 750 mg PO DAILY 7 Days Qty: 7 0RF No Action (DME) lancets 28 gauge misc See Rx Instructions topical TID Qty: 100 3RF Rx Instructions: once a day (DME) pen needle, diabetic [BD Ultra-Fine Mini Pen Needle] 31 gauge x 3/16 needle See Rx Instructions .Route Qty: 100 2RF Rx Instructions: Use to administer insulin twice daily (DME) FreeStyle Lite Strips Strip See Rx Instructions .Route Rx Instructions: Use to check blood sugar twice daily and when having symptoms of hypo/hyperglycemia (DME) pen needle, diabetic 31 gauge x 3/16 needle See Rx Instructions subcut TID Qty: 100 1RF Rx Instructions: As directed bisacodyl [Dulcolax (bisacodyl)] 5 mg tablet,delayed release (DR/EC) 10 mg PO ONCE 1 Days Qty: 2 0RF Rx Instructions: take orally as directed prior to colonoscopy polyethylene glycol 3350 [Miralax] 17 gram/dose powder 238 g PO ONCE 1 Days Qty: 238 0RF Rx Instructions: take orally as directed prior to colonoscopy docusate sodium [Colace] 100 mg capsule 100 mg PO BID Qty: 60 2RF Levemir FlexTouch U-100 Insuln 100 unit/mL (3 mL) insulin pen 20 unit subcut DAILY 90 Days Qty: 18 3RF albuterol sulfate 1.25 mg/3 mL solution for nebulization 1.25 mg inhalation Q4-6H PRN (Reason: shortness of breath or wheezing) Qty: 150 2RF levofloxacin 500 mg tablet 500 mg PO DAILY 5 Days Qty: 5 0RF (DME) diaper,brief,adult,disposable [facility] See Rx Instructions .Route Qty: 64 5RF Rx Instructions: Use for stress incontinence albuterol sulfate [ProAir HFA] 90 mcg/actuation HFA aerosol inhaler 2 puff inhalation Q4-6H PRN (Reason: shortness of breath or wheezing) 30 Days Qty: 8.5 2RF montelukast 10 mg tablet 10 mg PO DAILY Qty: 90 1RF ipratropium-albuterol 0.5 mg-3 mg(2.5 mg base)/3 mL solution for nebulization 3 ml inhalation Q6H PRN (Reason: wheezing, copd) 30 Days Qty: 180 3RF furosemide 20 mg tablet 20 mg PO Q OTHER DAY Qty: 42 1RF ropinirole 2 mg tablet 2 mg PO BID 90 Days Qty: 180 1RF lisinopril 5 mg tablet 5 mg PO DAILY Qty: 90 0RF Hold Instructions: Resume on 12/10/21. amlodipine [Norvasc] 5 mg tablet 5 mg PO DAILY 30 Days Qty: 90 0RF atorvastatin 80 mg tablet 80 mg PO DAILY 90 Days Qty: 90 0RF (DME) AeroEclipse II Nebulizer Misc See Rx Instructions .ROUTE .MEDSUPPLY Qty: 1 0RF Rx Instructions: As directed hydroxyzine pamoate 25 mg capsule 1 cap PO BID gabapentin 300 mg capsule 300 mg PO DAILY trazodone 100 mg tablet 200 mg PO BEDTIME aspirin 81 mg Tablet,Chewable 81 mg PO DAILY cholecalciferol (vitamin D3) 25 mcg (1,000 unit) Capsule 25 mcg PO DAILY metronidazole 500 mg tablet 500 mg PO Q8H 5 Days Qty: 15 0RF gabapentin 300 mg capsule 900 mg PO BEDTIME Rx Instructions: pt takes 1 300mg in am and pm and 3 and bedtime (DME) adult diapers large large See Rx Instructions .Route .MEDSUPPLY Qty: 100 6RF Rx Instructions: twice a day cefuroxime axetil 250 mg tablet 250 mg PO BID 7 Days Qty: 14 0RF bupropion HCl 150 mg tablet extended release 24 hr 150 mg PO DAILY (DME) oxygen-air delivery systems Device See Rx Instructions .ROUTE .MEDSUPPLY Qty: 1 Rx Instructions: As directed Referrals: Shelbi Perez MD [Primary Care Provider] - (Influenza a positive)
--- NOTE | 2022-07-10 08:41 | ECG_ITS ---
Test Reason : DYSPNEA Blood Pressure : / mmHG Vent. Rate : 082 BPM Atrial Rate : 082 BPM P-R Int : 162 ms QRS Dur : 086 ms QT Int : 394 ms P-R-T Axes : 037 025 029 degrees QTc Int : 460 ms Normal sinus rhythm Nonspecific ST and T wave abnormality Abnormal ECG When compared with ECG of 03-JAN-2022 20:26, No significant change was found Referred By: Maria Black Electronically Signed By:RAMSEY ZARATE MD
[2022-07-10 09:11] LABS: MANUAL DIFF FLAG NO
[2022-07-10 09:14] LABS: Venous Blood Gas Refer to POC result
[2022-07-10 09:15] LABS: VBG Base Excess 0.2 mmol/L; VBG HCO3 25 mmol/L (22-26); VBG pCO2 44 mmHg; VBG pH 7.37 (7.32-7.43); VBG pO2 59 mmHg
[2022-07-10 09:16] LABS: Basophils Percent Auto 0.2 % (0-2); Eosinophils Absolute Auto 0.2 X10*3/uL (0.0-0.4); Eosinophils Percent Auto 2.6 % (0-4); Hematocrit 36.5 % (37.0-47.0); Hemoglobin 11.6 g/dl (12.0-16.0); Imm Gran Abs Auto 0.03 X10*3/uL (0.00-0.03); Imm Gran Pct Auto 0.3 % (0.0-0.4); Lymphocytes Absolute Auto 1.7 X10*3/uL (1.2-4.9); Lymphocytes Percent Auto 18.8 % (20-40); Mean Corpuscular HGB Conc 31.8 g/dl (31.0-35.0); Mean Corpuscular Hemoglobin 27.1 pg (27.0-33.0); Mean Corpuscular Volume 85.3 fL (80.0-98.0); Mean Platelet Volume 11.9 fL (9.4-12.3); Monocytes Absolute Auto 0.6 X10*3/uL (0.1-1.2); Monocytes Percent Auto 6.9 % (2-11); Neutrophils Absolute Auto 6.3 x10*3/uL (2.0-8.3); Neutrophils Percent Auto 71.2 % (45-73); Platelet Count 202 X10*3/uL (160-400); Red Blood Count 4.28 X10*6/uL (4.20-5.50); Red Cell Distribution Width 13.7 % (11.0-16.0); White Blood Count 8.9 X10*3/uL (4.8-10.8)
[2022-07-10 09:19] LABS: Influenza A PCR POSITIVE (Negative); Influenza B PCR NEGATIVE (Negative); Resp Syncy Virus RNA Qual PCR NEGATIVE (Negative); SARS COV2 PCR INHOUSE NEGATIVE (Negative)
[2022-07-10 09:21] LABS: Appearance Urine Clear; Color Urine Yellow; Glucose Urine UA 500 mg/dL (Negative); Leukocyte Esterase Urine Small (1+) (Negative); Nitrite Urine Positive (Negative); PH 5.5 (5.0-9.0); UMIC TRIGGER UACC YES; Urine Blood Trace (Negative); Urine Ketones Negative (Negative); Urine Protein Negative (Neg-Trace)
[2022-07-10 09:28] VITALS: BP 138/63; PULSE 85; RESP 19; O2SAT 100
[2022-07-10 09:31] LABS: Bacteria Urine 4+ (None Seen); Hyaline Casts Urine 0-2 /LPF (0-2); RBC Urine 0-2 /HPF (0-2); UACC Culture Trigger YES; WBC Urine 21-50 /HPF (0-5)
[2022-07-10 09:32] LABS: Alanine Aminotransferase 18 U/L (0-31); Albumin Level 3.8 g/dL (3.5-5.0); Alkaline Phosphatase 47 U/L (39-117); Anion Gap 12 (12-20); Aspartate Amino Transferase 17 U/L (5-31); Bilirubin Total 0.3 mg/dL (0.0-1.0); Blood Urea Nitrogen 18 mg/dL (9-16); Calcium 8.9 mg/dL (8.4-10.2); Carbon Dioxide 29 mmol/L (22-29); Chloride 103 mmol/L (96-108); Creatinine Clr Calc Pharmacy 42.3; Estimated Glomerular Filt Rate 34; Glucose Random 237 mg/dL (60-115); Sodium 140 mmol/L (135-145); Total Protein 6.3 g/dL (6.5-8.0)
[2022-07-10] MEDS: levoFLOXacin 750 MG TABLET PO (11:08)
[2022-07-10] MEDS: Ibuprofen 400 MG TABLET PO (11:08)
[2022-07-10] MEDS: Acetaminophen 325 MG TABLET 975 MG PO (11:08)
== END 2022-07-10 11:22 | disposition skilled nursing facility (03) ==
PROVIDERS: Emergency Provider Student in an Organized Health Care Education/Training Program; PCP Internal Medicine
DX: J11.1 Influenza due to unidentified influenza virus with other respiratory manifestations (principal); N39.0 Urinary tract infection, site not specified; B96.20 Unspecified Escherichia coli [E. coli] as the cause of diseases classified elsewhere; E13.22 Other specified diabetes mellitus with diabetic chronic kidney disease; N18.30 Chronic kidney disease, stage 3 unspecified; E78.5 Hyperlipidemia, unspecified; E66.9 Obesity, unspecified; Z68.33 Body mass index [BMI] 33.0-33.9, adult; Z99.81 Dependence on supplemental oxygen; Z79.4 Long term (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 insulin; Z20.822 Contact with and (suspected) exposure to COVID-19
CPT/HCPCS: 0241U; 36415; 71045; 80053; 81001; 82803; 85025; 87086; 87088; 87186; 93005; 99284

== ENCOUNTER 2022-08-05 09:41 | Outpatient (REF) | payer MEDICARE, MEDICAID, SELFPAY ==
[2022-08-05 18:03] LABS: Urine Cytology See Pathology rpt
== END 2022-08-05 09:42 | disposition home or self-care (01) ==
LOC: HO.LAB 09:41
PROVIDERS: PCP Internal Medicine; Visit Provider Nurse Practitioner Family
DX: N39.0 Urinary tract infection, site not specified (principal); R31.29 Other microscopic hematuria; N32.81 Overactive bladder
CPT/HCPCS: 51798; 87086; 87088; 87186; 88112; 99202

== ENCOUNTER → 2022-08-13 10:08 | Outpatient (BNVA) | payer OTHER, SELFPAY | PROVIDERS: PCP Internal Medicine; Visit Provider Internal Medicine | DX: G47.33 Obstructive sleep apnea (adult) (pediatric) (principal); G47.34 Idiopathic sleep related nonobstructive alveolar hypoventilation; J98.4 Other disorders of lung; J44.9 Chronic obstructive pulmonary disease, unspecified; J30.9 Allergic rhinitis, unspecified | CPT/HCPCS: 99212 ==

== ENCOUNTER 2022-08-22 09:29 | Outpatient (REF) | payer OTHER, SELFPAY ==
[2022-08-22 11:31] LABS: MANUAL DIFF FLAG NO
[2022-08-22 11:46] LABS: Basophils Percent Auto 0.3 % (0-2); Eosinophils Absolute Auto 0.3 X10*3/uL (0.0-0.4); Eosinophils Percent Auto 2.5 % (0-4); Hematocrit 37.5 % (37.0-47.0); Imm Gran Abs Auto 0.04 X10*3/uL (0.00-0.03); Imm Gran Pct Auto 0.4 % (0.0-0.4); Lymphocytes Absolute Auto 2.8 X10*3/uL (1.2-4.9); Lymphocytes Percent Auto 24.7 % (20-40); Mean Corpuscular Hemoglobin 27.6 pg (27.0-33.0); Mean Corpuscular Volume 86.2 fL (80.0-98.0); Mean Platelet Volume 12.8 fL (9.4-12.3); Monocytes Absolute Auto 0.6 X10*3/uL (0.1-1.2); Monocytes Percent Auto 5.6 % (2-11); Neutrophils Absolute Auto 7.6 x10*3/uL (2.0-8.3); Neutrophils Percent Auto 66.5 % (45-73); Platelet Count 253 X10*3/uL (160-400); Red Blood Count 4.35 X10*6/uL (4.20-5.50); Red Cell Distribution Width 14.5 % (11.0-16.0); White Blood Count 11.4 X10*3/uL (4.8-10.8)
[2022-08-22 12:02] LABS: Alanine Aminotransferase 17 U/L (0-31); Albumin Level 3.9 g/dL (3.5-5.0); Alkaline Phosphatase 57 U/L (39-117); Anion Gap 16 (12-20); Aspartate Amino Transferase 18 U/L (5-31); Bilirubin Total 0.5 mg/dL (0.0-1.0); Blood Urea Nitrogen 21 mg/dL (9-16); Calcium 9.4 mg/dL (8.4-10.2); Carbon Dioxide 25 mmol/L (22-29); Chloride 104 mmol/L (96-108); Estimated Glomerular Filt Rate 37; Glucose Random 222 mg/dL (60-115); Potassium 4.1 mmol/L (3.3-5.1); Sodium 141 mmol/L (135-145); Total Protein 6.6 g/dL (6.5-8.0)
[2022-08-22 12:19] LABS: Estimated Average Glucose 209 mg/dL; Hemoglobin A1c % 8.9 %
== END 2022-08-22 09:30 | disposition home or self-care (01) ==
LOC: HO.HMGCLDS 09:29
PROVIDERS: PCP Internal Medicine; Visit Provider Internal Medicine
DX: D64.9 Anemia, unspecified (principal); E11.40 Type 2 diabetes mellitus with diabetic neuropathy, unspecified; E78.9 Disorder of lipoprotein metabolism, unspecified; F33.9 Major depressive disorder, recurrent, unspecified; F41.1 Generalized anxiety disorder; G25.81 Restless legs syndrome; K21.9 Gastro-esophageal reflux disease without esophagitis; Z79.4 Long term (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 insulin
CPT/HCPCS: 36415; 80053; 83036; 85025

== ENCOUNTER 2022-08-27 13:26 | Outpatient (REF) | payer OTHER, SELFPAY ==
[2022-08-27 17:05] LABS: Appearance Urine Clear; Color Urine Yellow; Glucose Urine UA Negative (Negative); Leukocyte Esterase Urine Trace (Negative); Nitrite Urine Positive (Negative); PH 5.5 (5.0-9.0); Specific Gravity - Urine 1.015 (1.005-1.025); UMIC TRIGGER UACC YES; Urine Blood Negative (Negative); Urine Ketones Negative (Negative); Urine Protein Negative (Neg-Trace)
[2022-08-27 17:08] LABS: Bacteria Urine 4+ (None Seen); Hyaline Casts Urine 0-2 /LPF (0-2); RBC Urine 0-2 /HPF (0-2); UACC Culture Trigger YES
== END 2022-08-27 13:27 | disposition home or self-care (01) ==
LOC: HO.HMGCLNP 13:26
PROVIDERS: Visit Provider Internal Medicine
DX: R79.89 Other specified abnormal findings of blood chemistry (principal); E10.9 Type 1 diabetes mellitus without complications; N39.0 Urinary tract infection, site not specified; R31.29 Other microscopic hematuria; D64.9 Anemia, unspecified
CPT/HCPCS: 81001; 81003; 87086; 87088; 87186

== ENCOUNTER 2022-10-05 21:38 | Emergency (ER) | payer OTHER, SELFPAY ==
--- NOTE | ~2022-10-05 | CT_ITS ---
EXAMINATION: CT ABDOMEN AND PELVIS WITHOUT CONTRAST CLINICAL INFORMATION: Left-sided flank COMPARISON: CT abdomen pelvis 04/17/2022 along with multiple other CT scans of the abdomen pelvis the pelvis dating back to 10/18/2016. TECHNIQUE: Multidetector volumetric imaging was performed from the superior aspect of the liver through the pubic symphysis. Sagittal and coronal reformatted images were obtained on the technologist's workstation. This CT examination was performed using dose optimization techniques as appropriate, variously including the following: *Automated exposure control *Adjustment of mA and/or kV according to patient size (this includes techniques or standardized protocols for targeted exams where dose is matched to indication/reason for exam; i.e. extremities or head) *Use of iterative reconstruction technique DLP: 1060 mGy-cm FINDINGS: LUNG BASES: The visualized lung bases are unremarkable. LIVER, GALLBLADDER, AND BILIARY TREE: The liver is enlarged measuring 21.2 cm in greatest cephalocaudad dimension. Shape and attenuation are normal. No focal hepatic lesion or biliary ductal dilatation is present. The gallbladder is not seen PANCREAS: Unremarkable. SPLEEN: Unremarkable. ADRENAL GLANDS: Unremarkable. KIDNEYS AND URETERS: The kidneys are normal in size, shape, and attenuation. A 4 mm nonobstructing left lower pole renal calculus is present which measures about 500 Hounsfield units which includes partial volume averaging and is 14 cm from the posterior axillary line. No hydronephrosis, hydroureter, or additional calculi seen. No perinephric stranding. BLADDER: Calcification is present at the dome of the bladder (8:71) which has been present since at least 10/18/2016 and is unchanged. GASTROINTESTINAL TRACT: Dense seen is a suture line near the distal sigmoid/proximal rectum without evidence of obstruction. There are a few scattered colonic diverticula without diverticulitis. The small and large bowel are otherwise unremarkable. The appendix is not seen but there is no evidence of appendicitis evidence of appendicitis.. ABDOMINAL WALL: No significant hernia is appreciated. LYMPH NODES: Normal. VASCULAR: Unremarkable. PELVIC VISCERA: Uterus is not present. An abnormal adnexal mass or free intraperitoneal fluid is not present. OSSEOUS STRUCTURES: Degenerative changes are present in the spine most marked at L5-S1. CT/CT abdomen pelvis wo IV con IMPRESSION: 1. A cause for the patient's left-sided flank pain has not been found. 2. Incidental note made of a nonobstructing 4 mm left lower pole renal calculus, hepatomegaly, cholecystectomy, colonic diverticula without diverticulitis, hysterectomy and degenerative changes L5-S1. Fleischner guidelines were followed.
[2022-10-05 21:48] VITALS: BP 154/76; PULSE 96; O2SAT 97
[2022-10-05 22:02] VITALS: BP 135/62; PULSE 90; RESP 18; TEMP 36.6; O2SAT 97; BMI 39.0
--- NOTE | 2022-10-05 22:50 | MHC.EDTECH ---
PT BLOOD DRAWN AND SENT TO LAB ,PT WAS GIVEN A URINE CUP FOR SAMPLE .
[2022-10-05 22:53] LABS: MANUAL DIFF FLAG NO
[2022-10-05 22:54] LABS: Basophils Percent Auto 0.3 % (0-2); Eosinophils Absolute Auto 0.2 X10*3/uL (0.0-0.4); Eosinophils Percent Auto 1.6 % (0-4); Hematocrit 35.9 % (37.0-47.0); Hemoglobin 11.4 g/dl (12.0-16.0); Imm Gran Abs Auto 0.05 X10*3/uL (0.00-0.03); Imm Gran Pct Auto 0.4 % (0.0-0.4); Lymphocytes Absolute Auto 2.5 X10*3/uL (1.2-4.9); Lymphocytes Percent Auto 18.9 % (20-40); Mean Corpuscular HGB Conc 31.8 g/dl (31.0-35.0); Mean Corpuscular Hemoglobin 27.4 pg (27.0-33.0); Mean Corpuscular Volume 86.3 fL (80.0-98.0); Monocytes Absolute Auto 0.9 X10*3/uL (0.1-1.2); Monocytes Percent Auto 6.5 % (2-11); Neutrophils Absolute Auto 9.7 x10*3/uL (2.0-8.3); Neutrophils Percent Auto 72.3 % (45-73); Platelet Count 228 X10*3/uL (160-400); Red Blood Count 4.16 X10*6/uL (4.20-5.50); Red Cell Distribution Width 14.1 % (11.0-16.0); White Blood Count 13.4 X10*3/uL (4.8-10.8)
[2022-10-05 23:10] LABS: Alanine Aminotransferase 16 U/L (0-31); Albumin Level 3.6 g/dL (3.5-5.0); Alkaline Phosphatase 45 U/L (39-117); Anion Gap 16 (12-20); Aspartate Amino Transferase 16 U/L (5-31); Bilirubin Total 0.4 mg/dL (0.0-1.0); Blood Urea Nitrogen 28 mg/dL (9-16); Calcium 8.5 mg/dL (8.4-10.2); Carbon Dioxide 27 mmol/L (22-29); Chloride 100 mmol/L (96-108); Creatinine Clr Calc Pharmacy 31.1; Estimated Glomerular Filt Rate 31; Glucose Random 256 mg/dL (60-115); Potassium 4.5 mmol/L (3.3-5.1); Sodium 138 mmol/L (135-145)
--- NOTE | 2022-10-06 00:07 | ED_ITS ---
HPI - Abdominal Pain General Chief Complaint: Abdominal Pain Stated Complaint: L Flank pain Time Seen by Provider: 10/05/22 23:27 History of Present Illness HPI narrative: Patient is a 72-year-old female presents today with having left sided abdominal pain. The pain is dull in nature. Been ongoing for the day. There is no fever no chills. No cough no congestion or worsening symptoms. Positive previous abdominal surgery in the past. Patient claims she has sepsis and then the dirk rajesh was done about 15 years ago. There is no change in bowel movement. There is no nausea no vomiting. Patient is from home. Had a previous history UTI. Positive history of diabetes, chronic kidney disease. History of COPD. Related Data Home Medications Medication Instructions Recorded Confirmed bupropion HCl 150 mg 24 hr tablet, 150 mg PO DAILY 04/25/20 08/22/22 extended release oxygen-air delivery systems ##1 04/25/20 08/22/22 gabapentin 300 mg capsule 900 mg PO BEDTIME 05/13/21 08/22/22 gabapentin 300 mg capsule 300 mg PO DAILY 06/29/21 08/22/22 blood sugar diagnostic (FreeStyle 08/09/21 08/22/22 Lite Strips) aspirin 81 mg chewable tablet 81 mg PO DAILY 10/01/21 08/22/22 trazodone 100 mg tablet 200 mg PO BEDTIME 10/01/21 08/22/22 cholecalciferol (vitamin D3) 25 25 mcg PO DAILY 01/04/22 08/22/22 mcg (1,000 unit) capsule ropinirole 4 mg tablet 4 mg PO BID 08/05/22 08/22/22 hydroxyzine pamoate 25 mg capsule 25 mg PO BEDTIME 08/13/22 08/22/22 Previous Rx's Medication Instructions Recorded nebulizers (AeroEclipse II #1 ea 02/05/21 Nebulizer) lancets 28 gauge #100 ea 06/24/21 pen needle, diabetic 31 gauge x #100 ea 08/09/2109/25 (BD Ultra-Fine Mini Pen Needle) bisacodyl 5 mg tablet,delayed 10 mg PO ONCE 1 day #2 tabs 01/14/22 release (Dulcolax (bisacodyl)) polyethylene glycol 3350 17 238 g PO ONCE 1 day #238 grams 01/14/22 gram/dose oral powder (Miralax) docusate sodium 100 mg capsule 100 mg PO BID #60 caps 02/07/22 (Colace) adult diapers large #100 ea 02/25/22 insulin detemir U-100 100 unit/mL 20 unit (0.2 mL) subcut DAILY 90 03/05/22 (3 mL) subcutaneous pen (Levemir days #18 mL FlexTouch U-100 Insulin) albuterol sulfate 1.25 mg/3 mL 1.25 mg (3 mL) inhalation Q4-6H 03/18/22 solution for nebulization PRN shortness of breath or wheezing #150 mL diaper,brief,adult,disposable #64 ea 05/06/22 albuterol sulfate 90 mcg/actuation 2 puff inhalation Q4-6H PRN 05/17/22 aerosol inhaler (ProAir HFA) shortness of breath or wheezing 30 days #8.5 grams ipratropium 0.5 mg-albuterol 3 mg 3 ml inhalation Q6H PRN wheezing, 05/26/22 (2.5 mg base)/3 mL nebulization copd 30 days #180 mL soln ropinirole 2 mg tablet 2 mg PO BID 90 days #180 tabs 06/02/22 atorvastatin 80 mg tablet 80 mg PO DAILY 90 days #90 tabs 06/25/22 lisinopril 5 mg tablet 5 mg PO DAILY #90 tabs 06/25/22 pen needle, diabetic 31 gauge x #100 ea 07/11/2209/25 amlodipine 5 mg tablet (Norvasc) 5 mg PO DAILY 30 days #90 tabs 08/21/22 estradiol 0.01% (0.1 mg/gram) See Rx Instructions vaginal 3XW 08/21/22 vaginal cream #42.5 grams tolterodine 2 mg capsule,extended 2 mg PO DAILY 30 days #30 caps 08/28/22 release 24 hr sulfamethoxazole 800 1 tab PO BID UTI 10 days #20 tabs 08/29/22 mg-trimethoprim 160 mg tablet (Bactrim DS) blood sugar diagnostic (OneTouch #100 ea 09/16/22 Ultra Test strips) lancets 30 gauge (OneTouch Delica #100 ea 09/16/22 Lancets) blood-glucose meter (OneTouch #1 ea 09/19/22 Ultra2 Meter) ondansetron 4 mg disintegrating 4 mg PO ONCE PRN nausea and 09/19/22 tablet vomiting 30 days #30 tabs montelukast 10 mg tablet 10 mg PO DAILY #90 tabs 10/03/22 sulfamethoxazole 800 1 tab PO BID 7 days #14 tabs 10/06/22 mg-trimethoprim 160 mg tablet (Bactrim DS) Allergies Allergy/AdvReac Type Severity Reaction Status Date / Time adhesive tape [ADHESIVE TAPE] Allergy Intermediate RASH Verified 10/05/22 22:02 trimethobenzamide Allergy Mild NAUSEA Verified 10/05/22 22:02 [From TIGAN] environmental Allergy Intermediate Nasal Uncoded 08/13/22 10:29 congestion Review of Systems Review of Systems Positive abdominal pain on the left side Yes all other systems are reviewed and are negative PMFSH Past Medical History Attestation statement: The following information was validated with the patient. Medical History Allergic rhinitis Anemia Arthritis CKD (chronic kidney disease) Constipation due to opioid therapy COPD (chronic obstructive pulmonary disease) COPD exacerbation CPAP (continuous positive airway pressure) dependence Diabetes Elevated cholesterol GERD (gastroesophageal reflux disease) History of adrenal adenoma History of diverticulitis History of restless legs syndrome Hx SBO Hyperlipidemia Hypoxemia Morbid obesity Obesity (BMI 30-39.9) ALDO (obstructive sleep apnea) Osteoarthritis of left knee Osteochondroma of left femur Respiratory failure with hypoxia Urinary tract infection Surgical History H/O colonoscopy H/O excision of mass H/O exploratory laparotomy History of appendectomy History of arthroscopy of left knee History of cholecystectomy History of hysterectomy History of oophorectomy History of partial colectomy History of surgery Hx of cataract extraction Family History Family History Father HTN (hypertension) Diabetes mellitus Mother HTN (hypertension) Liver cancer Social History Social History 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: Other 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 Other:: EX Housing: Apartment Are you a primary special needs child caregiver to a significant other at home: No Do you presently have visiting nurse or other home services: No Alcohol intake: never Patient Tobacco Use Status: Never used Tobacco e-Cigarette/Vaping Use: Never Used Second Hand Smoke Exposure: No Advance Directives: No Advance Directives Information Provided: No Advance Directives Date on File: 07/08/21 service: No Current occupational status: retired Cognitive needs: No Hearing needs: No Vision needs: No Physical Exam ED Vital Signs: Vital Signs - 24 hr 10/05/22 22:02 Temperature 97.9 F Pulse Rate 90 Respiratory Rate 18 Blood Pressure 135/62 Pulse Oximetry 97 Oxygen Delivery Method Nasal Cannula BMI result Body Mass Index 39.0 Appearance: Alert. Oriented X3. No acute distress. Eyes: Pupils equal, round and reactive to light. ENT: Pharynx normal. Neck: Normal inspection. Neck supple. No lymph nodes noted. No crepitus CVS: Normal heart rate and rhythm. Pulses normal. Normal S1 and S2 Respiratory: No respiratory distress. Breath sounds normal. No Wheezing. No rales Abdomen: Soft and nontender. No rigidity. No distention. good BS x4 Skin: Skin warm and dry. Normal skin color. Normal skin turgor. Extremities: No lower extremity edema. Neurovascular intact to all extremities. No Lacerations. No Rash Neuro: Oriented X 3. No motor deficit. No sensory deficit. Moving all ext ermities. No slurred speech Medical Decision Making Medical Decision Making MDM Narrative: Positive abdominal pain more on the left side. CT scan of the abdomen showed no evidence of diverticulitis. No evidence of abscess no evidence of perforation. Patient's urine however was grossly infected. Patient is old chart was reviewed. Will start patient on Rocephin. No distress. White count slightly elevated. Creatinine is baseline. Patient has a history of recurrent UTIs. In stable condition. Tolerating fluid no distress abdomen is benign will discharge home on antibiotics. Differential Diagnosis UTI, diverticulitis, abscess, perforation Admission/Observation Consideration of admission/observation: Escalation of care including admission/observation considered Lab Data MDM Lab Attestation statement: I reviewed the patient's lab results. 10/05/22 22:48 10/05/22 22:48 Labs: Lab Results 10/05/22 10/05/22 10/06/22 Range/Units 22:48 22:48 00:21 WBC 13.4 H (4.8-10.8) X10*3/uL RBC 4.16 L (4.20-5.50) X10*6/uL Hgb 11.4 L (12.0-16.0) g/dl Hct 35.9 L (37.0-47.0) % MCV 86.3 (80.0-98.0) fL MCH 27.4 (27.0-33.0) pg MCHC 31.8 (31.0-35.0) g/dl RDW 14.1 (11.0-16.0) % Plt Count 228 (160-400) X10*3/uL MPV 12.0 (9.4-12.3) fL Immature Gran % (Auto) 0.4 (0.0-0.4) % Neut % (Auto) 72.3 (45-73) % Lymph % (Auto) 18.9 L (20-40) % [place] % (Auto) 6.5 (2-11) % Eos % (Auto) 1.6 (0-4) % Baso % (Auto) 0.3 (0-2) % Lymph # (Auto) 2.5 (1.2-4.9) X10*3/uL [place] # (Auto) 0.9 (0.1-1.2) X10*3/uL Eos # (Auto) 0.2 (0.0-0.4) X10*3/uL Baso # (Auto) 0.0 (0.0-0.2) X10*3/uL Abs Immat Gran (auto) 0.05 H (0.00-0.03) X10*3/uL Absolute Neuts (auto) 9.7 H (2.0-8.3) x10*3/uL Absolute Nucleated RBC 0.000 (0.0-0.012) X10*3/uL Nucleated RBC % (auto) 0.0 (0.0-0.2) /100WBC Sodium 138 (135-145) mmol/L Potassium 4.5 (3.3-5.1) mmol/L Chloride 100 (96-108) mmol/L Carbon Dioxide 27 (22-29) mmol/L Anion Gap 16 (12-20) BUN 28 H (9-16) mg/dL Creatinine 1.64 H (0.5-1.4) mg/dL Estim Creat Clear Calc 31.1 Estimated GFR 31 Random Glucose 256 H (60-115) mg/dL Calcium 8.5 D (8.4-10.2) mg/dL Total Bilirubin 0.4 (0.0-1.0) mg/dL AST 16 (5-31) U/L ALT 16 (0-31) U/L Alkaline Phosphatase 45 (39-117) U/L Total Protein 6.0 L (6.5-8.0) g/dL Albumin 3.6 (3.5-5.0) g/dL Urine Color Yellow Urine Appearance Turbid Urine pH 6.0 (5.0-9.0) Ur Specific [place] 1.020 (1.005-1.025) Urine Protein 100 (2+) H (Neg-Trace) mg/dL Urine Glucose (UA) 100 H (Negative) mg/dL Urine Ketones Negative (Negative) mg/dL Urine Blood Moderate (2+) H (Negative) Urine Nitrite Positive H (Negative) Ur Leukocyte Esterase Large (3+) H (Negative) Radiology Impression Discussion of test interpretation with radiology: I have reviewed the radiologist's reading. External Record Review External record reviewed: Inpatient record Chronic Conditions Patient?s care impacted by: Diabetes and Hypertension With previous abdominal surgery multiple UTI COPD Discharge Plan Discharge Clinical Impression: Recurrent UTI Patient Disposition: Home, Self-Care Instructions: Urinary Tract Infection in Older Adults (ED) Prescriptions: New sulfamethoxazole-trimethoprim [Bactrim DS] 800-160 mg tablet 1 tab PO BID 7 Days Qty: 14 0RF No Action (DME) lancets 28 gauge misc See Rx Instructions topical TID Qty: 100 3RF Rx Instructions: once a day (DME) pen needle, diabetic [BD Ultra-Fine Mini Pen Needle] 31 gauge x 3/16 needle See Rx Instructions .Route Qty: 100 2RF Rx Instructions: Use to administer insulin twice daily (DME) FreeStyle Lite Strips Strip See Rx Instructions .Route Rx Instructions: Use to check blood sugar twice daily and when having symptoms of hypo/hyperglycemia bisacodyl [Dulcolax (bisacodyl)] 5 mg tablet,delayed release (DR/EC) 10 mg PO ONCE 1 Days Qty: 2 0RF Rx Instructions: take orally as directed prior to colonoscopy polyethylene glycol 3350 [Miralax] 17 gram/dose powder 238 g PO ONCE 1 Days Qty: 238 0RF Rx Instructions: take orally as directed prior to colonoscopy docusate sodium [Colace] 100 mg capsule 100 mg PO BID Qty: 60 2RF Levemir FlexTouch U-100 Insuln 100 unit/mL (3 mL) insulin pen 20 unit subcut DAILY 90 Days Qty: 18 3RF albuterol sulfate 1.25 mg/3 mL solution for nebulization 1.25 mg inhalation Q4-6H PRN (Reason: shortness of breath or wheezing) Qty: 150 2RF (DME) diaper,brief,adult,disposable Misc See Rx Instructions .Route Qty: 64 5RF Rx Instructions: Use for stress incontinence albuterol sulfate [ProAir HFA] 90 mcg/actuation HFA aerosol inhaler 2 puff inhalation Q4-6H PRN (Reason: shortness of breath or wheezing) 30 Days Qty: 8.5 2RF ipratropium-albuterol 0.5 mg-3 mg(2.5 mg base)/3 mL solution for nebulization 3 ml inhalation Q6H PRN (Reason: wheezing, copd) 30 Days Qty: 180 3RF ropinirole 2 mg tablet 2 mg PO BID 90 Days Qty: 180 1RF lisinopril 5 mg tablet 5 mg PO DAILY Qty: 90 0RF Hold Instructions: Resume on 12/10/21. atorvastatin 80 mg tablet 80 mg PO DAILY 90 Days Qty: 90 0RF (DME) pen needle, diabetic 31 gauge x 3/16 needle See Rx Instructions subcut TID Qty: 100 1RF Rx Instructions: As directed estradiol 0.01 % (0.1 mg/gram) cream See Rx Instructions vaginal 3XW Qty: 42.5 1RF Rx Instructions: vaginally 3 times a week; pea sized amount to urethra 3 times a week amlodipine [Norvasc] 5 mg tablet 5 mg PO DAILY 30 Days Qty: 90 0RF tolterodine 2 mg capsule,extended release 24hr 2 mg PO DAILY 30 Days Qty: 30 1RF sulfamethoxazole-trimethoprim [Bactrim DS] 800-160 mg tablet 1 tab PO BID 10 Days Qty: 20 0RF (DME) OneTouch Ultra Test Strip See Rx Instructions .Route Qty: 100 2RF Rx Instructions: Use to check blood sugar twice daily and when having symptoms of hypo/hyperglycemia (DME) lancets [OneTouch Delica Lancets] 30 gauge misc See Rx Instructions .Route Qty: 100 2RF Rx Instructions: Use to check blood sugar twice daily and when having symptoms of hypo/hyperglycemia (DME) blood-glucose meter [OneTouch Ultra2 Meter] [facility] [place] See Rx Instructions .Route Qty: 1 0RF Rx Instructions: Use to check blood sugar twice daily and when having symptoms of hypo/hyperglycemia ondansetron 4 mg tablet,disintegrating 4 mg PO ONCE PRN (Reason: nausea and vomiting) 30 Days Qty: 30 0RF montelukast 10 mg tablet 10 mg PO DAILY Qty: 90 1RF (DME) AeroEclipse II Nebulizer [facility] [place] See Rx Instructions .ROUTE .MEDSUPPLY Qty: 1 0RF Rx Instructions: As directed gabapentin 300 mg capsule 300 mg PO DAILY hydroxyzine pamoate 25 mg capsule 25 mg PO BEDTIME trazodone 100 mg tablet 200 mg PO BEDTIME aspirin 81 mg Tablet,Chewable 81 mg PO DAILY cholecalciferol (vitamin D3) 25 mcg (1,000 unit) Capsule 25 mcg PO DAILY gabapentin 300 mg capsule 900 mg PO BEDTIME Rx Instructions: pt takes 1 300mg in am and pm and 3 and bedtime (DME) adult diapers large large See Rx Instructions .Route .MEDSUPPLY Qty: 100 6RF Rx Instructions: twice a day bupropion HCl 150 mg tablet extended release 24 hr 150 mg PO DAILY (DME) oxygen-air delivery systems Device See Rx Instructions .ROUTE .MEDSUPPLY Qty: 1 Rx Instructions: As directed ropinirole 4 mg tablet 4 mg PO BID Referrals: Shelbi Perez MD [Primary Care Provider] -
[2022-10-06 00:27] LABS: Appearance Urine Turbid; Color Urine Yellow; Glucose Urine UA 100 mg/dL (Negative); Leukocyte Esterase Urine Large (3+) (Negative); Nitrite Urine Positive (Negative); UMIC TRIGGER UACC YES; Urine Blood Moderate (2+) (Negative); Urine Ketones Negative (Negative); Urine Protein 100 (2+) mg/dL (Neg-Trace)
[2022-10-06 00:46] LABS: Bacteria Urine 4+ (None Seen); Hyaline Casts Urine 0-2 /LPF (0-2); UACC Culture Trigger YES; WBC Urine >50 /HPF (0-5)
[2022-10-06] MEDS: cefTRIAXone sodium 1 GM in 0.9 % Sodium Chloride 50 ML IV (01:07)
== END 2022-10-06 01:56 | disposition home or self-care (01) ==
PROVIDERS: Emergency Provider Emergency Medicine Emergency Medical Services; PCP Internal Medicine
DX: N39.0 Urinary tract infection, site not specified (principal); R10.2 Pelvic and perineal pain; E11.9 Type 2 diabetes mellitus without complications; Z79.899 Other long term (current) drug therapy; Z79.4 Long term (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 insulin
CPT/HCPCS: 36415; 74176; 80053; 81001; 85025; 87086; 87186; 96374; 99284; J0696

== ENCOUNTER 2022-10-13 10:14 | Emergency (ER) | payer OTHER, SELFPAY ==
--- NOTE | ~2022-10-13 | CT_ITS ---
EXAMINATION: CT ABDOMEN AND PELVIS WITHOUT CONTRAST CLINICAL INFORMATION: Abdominal pain COMPARISON: 10/05/2022 TECHNIQUE: Multidetector volumetric imaging was performed from the superior aspect of the liver through the pubic symphysis. Sagittal and coronal reformatted images were obtained on the technologist's workstation. This CT examination was performed using dose optimization techniques as appropriate, variously including the following: *Automated exposure control *Adjustment of mA and/or kV according to patient size (this includes techniques or standardized protocols for targeted exams where dose is matched to indication/reason for exam; i.e. extremities or head) *Use of iterative reconstruction technique DLP: 1056 mGy-cm FINDINGS: LUNG BASES: The visualized lung bases are unremarkable. LIVER, GALLBLADDER, AND BILIARY TREE: The liver is normal in size, shape, and attenuation. No focal hepatic lesion or biliary ductal dilatation is present. The gallbladder is likely absent. PANCREAS: Unremarkable. SPLEEN: Unremarkable. ADRENAL GLANDS: Unremarkable. KIDNEYS AND URETERS: The kidneys are normal in size, shape, and attenuation. No hydronephrosis or hydroureter. Left lower pole 0.5 cm calculus is 16 cm from the posterior axillary line. BLADDER: Unremarkable. GASTROINTESTINAL TRACT: The stomach is unremarkable. Normal caliber small bowel. There is no obstruction. Scattered colonic diverticulosis throughout the colon. No diverticulitis. No wall thickening or inflammation. Distal colonic anastomosis noted. No free air or free fluid. ABDOMINAL WALL: No significant hernia is appreciated. Mild stranding in the subcutaneous fat along the lower left anterior abdominal wall. No collection. LYMPH NODES: Normal. VASCULAR: Normal caliber aorta with mild atherosclerotic calcification. PELVIC VISCERA: Uterus not seen. No adnexal mass. OSSEOUS STRUCTURES: No acute or suspicious osseous abnormality. Mild degenerative change throughout the spine. Degenerative changes of the hips. T11 vertebral body focal sclerosis is unchanged. CT/CT abdomen pelvis wo IV con IMPRESSION: 1. No acute findings in the abdomen or pelvis. No inflammatory changes. Colonic diverticulosis without diverticulitis. 2. Nonobstructing left lower pole renal calculus. Fleischner guidelines were followed.
[2022-10-13 10:16] VITALS: BP 129/53; PULSE 100; RESP 22; TEMP 36.6; O2SAT 94; BMI 43.0
[2022-10-13 10:26] VITALS: BP 124/52; PULSE 93; RESP 18; TEMP 36.4; O2SAT 92
--- NOTE | 2022-10-13 10:54 | ED_ITS ---
HPI - General Adult General Chief complaint: Abdominal Pain Stated complaint: severe abd pain Time Seen by Provider: 10/13/22 10:54 Source: patient Mode of arrival: ambulatory Limitations: no limitations History of Present Illness HPI narrative: Patient is a 72yo female with an extensive PMH including DM and CKD presenting for abdominal pain. Patient stated that yesterday she woke up with back pain which moved towards her abdomen throughout the day causing her to vomit. She stated she has been unable to keep food down. She stated that her last BM was yesterday and was large but otherwise consistent with her regular stools. She stated she has been able to pass flatus. Patient denies fever or headache. She has no known sick contacts. Patient was seen for similar complaint on 10/05/22 and diagnosed with a UTI at that time and was treated with Bactrim. Patient denies any chest pain, shortness of breath, or difficulty breathing. MD complaint: LLQ pain Onset (ago): day(s) (1) Location: abdomen Radiation: back Quality: sharp Pain Consistency: constant Relieving factors: rest Exacerbating factors: eating and movement Associated symptoms: nausea/vomiting Treatments prior to arrival: none Related Data Home Medications Medication Instructions Recorded Confirmed bupropion HCl 150 mg 24 hr tablet, 150 mg PO DAILY 04/25/20 08/22/22 extended release oxygen-air delivery systems ##1 04/25/20 08/22/22 gabapentin 300 mg capsule 900 mg PO BEDTIME 05/13/21 08/22/22 gabapentin 300 mg capsule 300 mg PO DAILY 06/29/21 08/22/22 blood sugar diagnostic (FreeStyle 08/09/21 08/22/22 Lite Strips) aspirin 81 mg chewable tablet 81 mg PO DAILY 10/01/21 08/22/22 trazodone 100 mg tablet 200 mg PO BEDTIME 10/01/21 08/22/22 cholecalciferol (vitamin D3) 25 25 mcg PO DAILY 01/04/22 08/22/22 mcg (1,000 unit) capsule ropinirole 4 mg tablet 4 mg PO BID 08/05/22 08/22/22 hydroxyzine pamoate 25 mg capsule 25 mg PO BEDTIME 08/13/22 08/22/22 Previous Rx's Medication Instructions Recorded nebulizers (AeroEclipse II #1 ea 02/05/21 Nebulizer) lancets 28 gauge #100 ea 06/24/21 bisacodyl 5 mg tablet,delayed 10 mg PO ONCE 1 day #2 tabs 01/14/22 release (Dulcolax (bisacodyl)) polyethylene glycol 3350 17 238 g PO ONCE 1 day #238 grams 01/14/22 gram/dose oral powder (Miralax) docusate sodium 100 mg capsule 100 mg PO BID #60 caps 02/07/22 (Colace) adult diapers large #100 ea 02/25/22 insulin detemir U-100 100 unit/mL 20 unit (0.2 mL) subcut DAILY 90 03/05/22 (3 mL) subcutaneous pen (Levemir days #18 mL FlexTouch U-100 Insulin) albuterol sulfate 1.25 mg/3 mL 1.25 mg (3 mL) inhalation Q4-6H 03/18/22 solution for nebulization PRN shortness of breath or wheezing #150 mL diaper,brief,adult,disposable #64 ea 05/06/22 albuterol sulfate 90 mcg/actuation 2 puff inhalation Q4-6H PRN 05/17/22 aerosol inhaler (ProAir HFA) shortness of breath or wheezing 30 days #8.5 grams ipratropium 0.5 mg-albuterol 3 mg 3 ml inhalation Q6H PRN wheezing, 05/26/22 (2.5 mg base)/3 mL nebulization copd 30 days #180 mL soln ropinirole 2 mg tablet 2 mg PO BID 90 days #180 tabs 06/02/22 atorvastatin 80 mg tablet 80 mg PO DAILY 90 days #90 tabs 06/25/22 pen needle, diabetic 31 gauge x #100 ea 07/11/22 3/16 amlodipine 5 mg tablet (Norvasc) 5 mg PO DAILY 30 days #90 tabs 08/21/22 estradiol 0.01% (0.1 mg/gram) See Rx Instructions vaginal 3XW 08/21/22 vaginal cream #42.5 grams tolterodine 2 mg capsule,extended 2 mg PO DAILY 30 days #30 caps 08/28/22 release 24 hr sulfamethoxazole 800 1 tab PO BID UTI 10 days #20 tabs 08/29/22 mg-trimethoprim 160 mg tablet (Bactrim DS) blood sugar diagnostic (OneTouch #100 ea 09/16/22 Ultra Test strips) lancets 30 gauge (OneTouch Delica #100 ea 09/16/22 Lancets) blood-glucose meter (OneTouch #1 ea 09/19/22 Ultra2 Meter) ondansetron 4 mg disintegrating 4 mg PO ONCE PRN nausea and 09/19/22 tablet vomiting 30 days #30 tabs montelukast 10 mg tablet 10 mg PO DAILY #90 tabs 10/03/22 lisinopril 5 mg tablet 5 mg PO DAILY #90 tabs 10/06/22 sulfamethoxazole 800 1 tab PO BID 7 days #14 tabs 10/06/22 mg-trimethoprim 160 mg tablet (Bactrim DS) pen needle, diabetic 31 gauge x #100 ea 10/08/22 3 (BD Ultra-Fine Mini Pen Needle) Allergies Allergy/AdvReac Type Severity Reaction Status Date / Time adhesive tape [ADHESIVE TAPE] Allergy Intermediate RASH Verified 10/13/22 10:16 trimethobenzamide Allergy Mild NAUSEA Verified 10/13/22 10:16 [From TIGAN] environmental Allergy Intermediate Nasal Uncoded 10/13/22 10:16 congestion Review of Systems Review of Systems: Yes all other systems are reviewed and are negative Constitutional: Constitutional: Reports no additional constitutional complaints, Denies chills, Denies fever(s) and Denies night sweats Eyes: Eyes: Reports no additional eye complaints, Denies blurry vision, Denies change in vision, Denies diplopia, Denies eye discharge, Denies loss of vision and Denies eye pain ENT: Denies dizziness Cardiovascular: Cardiovascular: Reports no additional cardiovascular complaints, Denies chest pain, Denies lightheadedness, Denies Loss of Consciousn ess and Denies dyspnea Respiratory: Respiratory: Reports no additional respiratory complaints and Denies dyspnea Gastrointestinal: Gastrointestinal: Reports no additional gastrointestinal complaints, Reports abdominal pain, Denies melena, Denies hematochezia, Denies change in bowel habits and Denies change in stool character Genitourinary: Genitourinary: Denies hematuria, Denies urinary frequency, Denies dysuria, Denies urinary incontinence, Denies urinary hesitancy and Denies urinary urgency Musculoskeletal: Musculoskeletal: Reports no additional musculoskeletal complaints, Denies numbness and Denies tingling Neurologic: Denies dizziness, Denies loss of vision, Denies numbness and Denies tingling Psychiatric: Psychiatric: Reports no additional psychiatric complaints Endocrine: Endocrine: Reports no additional endocrine complaints Hematologic/Lymphatic: Hematologic/Lymphatic: Reports no additional hematologic/lymphatic complaints Allergic/Immunologic: Allergic/Immunologic: Reports no additional allergic/immunologic complaints [facility] Past Medical History Attestation statement: The following information was validated with the patient. Source: old records reviewed and nursing notes reviewed Medical History Allergic rhinitis Anemia Arthritis CKD (chronic kidney disease) Constipation due to opioid therapy COPD (chronic obstructive pulmonary disease) COPD exacerbation CPAP (continuous positive airway pressure) dependence Diabetes Elevated cholesterol GERD (gastroesophageal reflux disease) History of adrenal adenoma History of diverticulitis History of restless legs syndrome Hx SBO Hyperlipidemia Hypoxemia Morbid obesity Obesity (BMI 30-39.9) ALDO (obstructive sleep apnea) Osteoarthritis of left knee Osteochondroma of left femur Respiratory failure with hypoxia Urinary tract infection Surgical History H/O colonoscopy H/O excision of mass H/O exploratory laparotomy History of appendectomy History of arthroscopy of left knee History of cholecystectomy History of hysterectomy History of oophorectomy History of partial colectomy History of surgery Hx of cataract extraction Family History Family History Father HTN (hypertension) Diabetes mellitus Mother HTN (hypertension) Liver cancer Social History Social History 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: Other 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 Other:: EX Housing: Apartment Are you a primary day care center director to a significant other at home: No Do you presently have visiting nurse or other home services: No Alcohol intake: never Patient Tobacco Use Status: Never used Tobacco Smoked in Last 30 Days: No e-Cigarette/Vaping Use: Never Used Second Hand Smoke Exposure: No Use of substances other than those prescribed or required for medical reasons: No Any prior treatment program specific to substance use: No Advance Directives: No Advance Directives Information Provided: Yes Advance Directives Date on File: 07/08/21 service: No Current occupational status: retired Cognitive needs: No Hearing needs: No Vision needs: No Physical Exam ED Vital Signs: Vital Signs - 24 hr 10/13/22 10:16 10/13/22 10:26 10/13/22 12:03 Temperature 98 F 97.6 F Pulse Rate 100 93 80 Respiratory Rate 22 H 18 16 Blood Pressure 129/53 L 124/52 L 114/40 L Pulse Oximetry 94 92 96 Oxygen Delivery Method Room Air Room Air Room Air 10/13/22 14:09 Temperature Pulse Rate 83 Respiratory Rate 16 Blood Pressure 135/49 L Pulse Oximetry 93 Oxygen Delivery Method Room Air BMI result Body Mass Index 43.0 Const General: no acute distress, alert and awake Nutritional Appearance: obese Orientation/consciousness: patient oriented x3 Limitations: no limitations HENMT Head: Yes normal to inspection and Yes atraumatic Ears: hearing grossly normal bilaterally and external ears normal General nose exam: Normal external nose present, no nasal discharge noted and no epistaxis Face and sinus: Yes normal facial exam, No abrasion and No laceration Mouth: Normal oral and palatal mucosa present, no drooling and no muffled voice Eyes General: appearance normal, both eyes and all related structures Periorbital: periorbital findings normal Eyelids: Yes eyelids normal Conjunctivae: conjunctivae normal Pupils: Equal, round and reactive pupils present EOM: EOMs intact bilaterally Neck Neck: Yes normal visual inspection, Yes full ROM and Yes no lymphadenopathy Chest Chest palpation & inspection: normal inspection of the chest Resp Effort & Inspection: normal respiratory effort and able to speak in complete sentences Auscultation: clear to auscultation bilaterally Cardio Rate: regular rate Rhythm: regular rhythm GI Inspection: Yes normal to inspection Palpation (GI): Soft to palpation, not firm, Tenderness to palpation present (GI) in the LLQ, no guarding and not rigid Neuro General: patient oriented x3 and moves all extremities Cranial nerves: Yes Equal, round and reactive pupils present Cognition (Neuro): normal cognition Motor exam (neuro): 5/5 motor strength present throughout Sensory Exam: Normal double simultaneous stimulation for sensation Coordination: [id number] test normal Extrem General: Yes normal to inspection, Yes full ROM and Yes capillary refill normal Psych Appearance: grossly normal Mental Status: mental status grossly normal Affect: normal affect Attitude: cooperative Thought process: Normal thought process present Thought content: Normal thought content present Insight: Good insight present (Psych) Medications Administered Discontinued Medications Generic Name Dose Route Start Last Admin Trade Name Freq PRN Reason Stop Dose Admin Morphine Sulfate 4 mg 10/13/22 13:55 10/13/22 13:59 Morphine Sulfate 4 Mg/Ml Cartridge IVPUSH 10/13/22 13:56 4 mg ONCE ONE Administration Protocol Ondansetron HCl 4 mg 10/13/22 13:55 10/13/22 13:59 Ondansetron Hcl 4 Mg/2 Ml Vial IVPUSH 10/13/22 13:56 4 mg ONCE ONE Administration Medical Decision Making Medical Decision Making [facility] Narrative: Patient is a 72 year old assigned female at with a history of DM and CKD presenting to the emergency department today with abdominal pain. Patient's physical exam showed minimal abdominal pain to palpation but was otherwise unremarkable. Patient's blood work showed a mildly elevated K+ but was otherwise unremarkable. Patient's urine showed no acute process. Patient's EKG was unremarkable. Patient's abdominal CT showed no acute process. I explained my physical exam findings as well as all test results to the patient. I answered all questions asked by the patient. I stressed the importance of the patient taking her medication as prescribed. I stressed the importance of the patient following up with her primary care provider. I stressed the importance of the patient returning to the emergency department immediately if her symptoms were to worsen or if she were to develop any dizziness, shortness of breath, difficulty breathing, chest pain, blurry vision, loss of vision, nausea, vomiting, abdominal pain, fever, chills, back pain, or any other complaints. Patient verbalized agreement and understanding with this treatment plan and discharge. Differential Diagnosis Differential Diagnoses: The differential diagnosis associated with the presentation includes colitis, diverticulitis, bowel obstruction Lab Data MDM Lab Attestation statement: I reviewed the patient's lab results. 10/13/22 11:10 10/13/22 11:10 Labs: Lab Results 10/13/22 10/13/22 10/13/22 Range/Units 11:06 11:10 11:10 WBC 8.8 (4.8-10.8) X10*3/uL RBC 4.55 (4.20-5.50) X10*6/uL Hgb 12.4 (12.0-16.0) g/dl Hct 39.2 (37.0-47.0) % MCV 86.2 (80.0-98.0) fL MCH 27.3 (27.0-33.0) pg MCHC 31.6 (31.0-35.0) g/dl RDW 14.1 (11.0-16.0) % Plt Count 257 (160-400) X10*3/uL MPV 11.6 (9.4-12.3) fL Immature Gran % (Auto) 0.7 H (0.0-0.4) % Neut % (Auto) 72.9 (45-73) % Lymph % (Auto) 19.3 L (20-40) % [place] % (Auto) 4.1 (2-11) % Eos % (Auto) 2.8 (0-4) % Baso % (Auto) 0.2 (0-2) % Lymph # (Auto) 1.7 (1.2-4.9) X10*3/uL [place] # (Auto) 0.4 (0.1-1.2) X10*3/uL Eos # (Auto) 0.3 (0.0-0.4) X10*3/uL Baso # (Auto) 0.0 (0.0-0.2) X10*3/uL Abs Immat Gran (auto) 0.06 H (0.00-0.03) X10*3/uL Absolute Neuts (auto) 6.4 (2.0-8.3) x10*3/uL Absolute Nucleated RBC 0.000 (0.0-0.012) X10*3/uL Nucleated RBC % (auto) 0.0 (0.0-0.2) /100WBC Sodium 135 (135-145) mmol/L Potassium 5.2 H (3.3-5.1) mmol/L Chloride 101 (96-108) mmol/L Carbon Dioxide 25 (22-29) mmol/L Anion Gap 14 (12-20) BUN 31 H (9-16) mg/dL Creatinine 2.02 H (0.5-1.4) mg/dL Estim Creat Clear Calc 26.7 Estimated GFR 24 Random Glucose 197 H (60-115) mg/dL Calcium 9.4 D (8.4-10.2) mg/dL Magnesium 1.8 (1.6-2.6) mg/dL Total Bilirubin 0.4 (0.0-1.0) mg/dL AST 24 (5-31) U/L ALT 19 (0-31) U/L Alkaline Phosphatase 46 (39-117) U/L Troponin I High Sens (<3.5-17.0) ng/L Total Protein 6.7 (6.5-8.0) g/dL Albumin 4.1 (3.5-5.0) g/dL Urine Color Urine Appearance Urine pH (5.0-9.0) Ur Specific [place] (1.005-1.025) Urine Protein (Neg-Trace) mg/dL Urine Glucose (UA) (Negative) mg/dL Urine Ketones (Negative) mg/dL Urine Blood (Negative) Urine Nitrite (Negative) Ur Leukocyte Esterase (Negative) COVID-19 (JESSIKA) Negative (Negative) COVID-19 Clin Com See Note 10/13/22 10/13/22 Range/Units 11:10 12:18 WBC (4.8-10.8) X10*3/uL RBC (4.20-5.50) X10*6/uL Hgb (12.0-16.0) g/dl Hct (37.0-47.0) % MCV (80.0-98.0) fL MCH (27.0-33.0) pg MCHC (31.0-35.0) g/dl RDW (11.0-16.0) % Plt Count (160-400) X10*3/uL MPV (9.4-12.3) fL Immature Gran % (Auto) (0.0-0.4) % Neut % (Auto) (45-73) % Lymph % (Auto) (20-40) % [place] % (Auto) (2-11) % Eos % (Auto) (0-4) % Baso % (Auto) (0-2) % Lymph # (Auto) (1.2-4.9) X10*3/uL [place] # (Auto) (0.1-1.2) X10*3/uL Eos # (Auto) (0.0-0.4) X10*3/uL Baso # (Auto) (0.0-0.2) X10*3/uL Abs Immat Gran (auto) (0.00-0.03) X10*3/uL Absolute Neuts (auto) (2.0-8.3) x10*3/uL Absolute Nucleated RBC (0.0-0.012) X10*3/uL Nucleated RBC % (auto) (0.0-0.2) /100WBC Sodium (135-145) mmol/L Potassium (3.3-5.1) mmol/L Chloride (96-108) mmol/L Carbon Dioxide (22-29) mmol/L Anion Gap (12-20) BUN (9-16) mg/dL Creatinine (0.5-1.4) mg/dL Estim Creat Clear Calc Estimated GFR Random Glucose (60-115) mg/dL Calcium (8.4-10.2) mg/dL Magnesium (1.6-2.6) mg/dL Total Bilirubin (0.0-1.0) mg/dL AST (5-31) U/L ALT (0-31) U/L Alkaline Phosphatase (39-117) U/L Troponin I High Sens < 3.5 (<3.5-17.0) ng/L Total Protein (6.5-8.0) g/dL Albumin (3.5-5.0) g/dL Urine Color Yellow Urine Appearance Clear Urine pH 5.5 (5.0-9.0) Ur Specific [place] 1.020 (1.005-1.025) Urine Protein Negative (Neg-Trace) mg/dL Urine Glucose (UA) Negative (Negative) mg/dL Urine Ketones Negative (Negative) mg/dL Urine Blood Negative (Negative) Urine Nitrite Negative (Negative) Ur Leukocyte Esterase Negative (Negative) COVID-19 (JESSIKA) (Negative) COVID-19 Clin Com Independent Interpretation I performed an independent interpretation of an: EKG Interpretation: Vent. Rate: 086 BPM ? ? Atrial Rate: 086 BPM P-R Int: 164 ms? QRS Dur: 082 ms QT Int: 368 ms ? ? ? P-R-T Axes: 054 020 027 degrees QTc Int: 440 ms ? Normal sinus rhythm Nonspecific ST abnormality Abnormal ECG When compared with ECG of 10-JUL-2022 09:20, T wave inversion no longer evident in Anterior leads DD/ [id number] Radiology Impression Radiologist Impression: My interpretation is in agreement with the radiologist's impression of this imaging study. EXAMINATION: CT ABDOMEN AND PELVIS WITHOUT CONTRAST? CLINICAL INFORMATION: Abdominal pain? COMPARISON: 10/05/2022? TECHNIQUE: Multidetector volumetric imaging was performed from the superior aspect of the liver through the pubic symphysis. Sagittal and coronal reformatted images were obtained on the technologist's workstation.? This CT examination was performed using dose optimization techniques as appropriate, variously including the following: *Automated exposure control *Adjustment of mA and/or kV according to patient size (this includes techniques or standardized protocols for targeted exams where dose is matched to indication/reason for exam; i.e. extremities or head) *Use of iterative reconstruction technique DLP: 1056 mGy-cm FINDINGS: LUNG BASES: The visualized lung bases are unremarkable.? LIVER, GALLBLADDER, AND BILIARY TREE: The liver is normal in size, shape, and attenuation. No focal hepatic lesion or biliary ductal dilatation is present. The gallbladder is likely absent.? PANCREAS: Unremarkable.? SPLEEN: Unremarkable.? ADRENAL GLANDS: Unremarkable.? KIDNEYS AND URETERS: The kidneys are normal in size, shape, and attenuation. No hydronephrosis or hydroureter. Left lower pole 0.5 cm calculus is 16 cm from the posterior axillary line. BLADDER: Unremarkable.? GASTROINTESTINAL TRACT: The stomach is unremarkable. Normal caliber small bowel. There is no obstruction. Scattered colonic diverticulosis throughout the colon. No diverticulitis. No wall thickening or inflammation. Distal colonic anastomosis noted. No free air or free fluid.? ABDOMINAL WALL: No significant hernia is appreciated. Mild stranding in the subcutaneous fat along the lower left anterior abdominal wall. No collection. LYMPH NODES: Normal. VASCULAR: Normal caliber aorta with mild atherosclerotic calcification. PELVIC VISCERA: Uterus not seen. No adnexal mass.? OSSEOUS STRUCTURES: No acute or suspicious osseous abnormality. Mild degenerative change throughout the spine. Degenerative changes of the hips. T11 vertebral body focal sclerosis is unchanged.? CT/CT abdomen pelvis wo IV con IMPRESSION: 1.? No acute findings in the abdomen or pelvis. No inflammatory changes. Colonic diverticulosis without diverticulitis. 2.? Nonobstructing left lower pole renal calculus. ? Fleischner guidelines were followed. Dictated By: Davey York MD Signed By: Electronically signed by Davey York MD 10/13/22 [id number] Discharge Plan Discharge Clinical Impression: Abdominal pain Patient Disposition: Home, Self-Care Instructions: Abdominal Pain (ED) Additional Instructions: Follow up with your primary care provider. Return to the emergency department immediately if your symptoms worsen or if you develop any dizziness, shortness of breath, difficulty breathing, chest pain, blurry vision, loss of vision, nausea, vomiting, abdominal pain, fever, chills, back pain, or any other complaints. Prescriptions: No Action (DME) lancets 28 gauge misc See Rx Instructions topical TID Qty: 100 3RF Rx Instructions: once a day (DME) FreeStyle Lite Strips Strip See Rx Instructions .Route Rx Instructions: Use to check blood sugar twice daily and when having symptoms of hyp o/hyperglycemia bisacodyl [Dulcolax (bisacodyl)] 5 mg tablet,delayed release (DR/EC) 10 mg PO ONCE 1 Days Qty: 2 0RF Rx Instructions: take orally as directed prior to colonoscopy polyethylene glycol 3350 [Miralax] 17 gram/dose powder 238 g PO ONCE 1 Days Qty: 238 0RF Rx Instructions: take orally as directed prior to colonoscopy docusate sodium [Colace] 100 mg capsule 100 mg PO BID Qty: 60 2RF Levemir FlexTouch U-100 Insuln 100 unit/mL (3 mL) insulin pen 20 unit subcut DAILY 90 Days Qty: 18 3RF albuterol sulfate 1.25 mg/3 mL solution for nebulization 1.25 mg inhalation Q4-6H PRN (Reason: shortness of breath or wheezing) Qty: 150 2RF (DME) diaper,brief,adult,disposable Misc See Rx Instructions .Route Qty: 64 5RF Rx Instructions: Use for stress incontinence albuterol sulfate [ProAir HFA] 90 mcg/actuation HFA aerosol inhaler 2 puff inhalation Q4-6H PRN (Reason: shortness of breath or wheezing) 30 Days Qty: 8.5 2RF ipratropium-albuterol 0.5 mg-3 mg(2.5 mg base)/3 mL solution for nebulization 3 ml inhalation Q6H PRN (Reason: wheezing, copd) 30 Days Qty: 180 3RF ropinirole 2 mg tablet 2 mg PO BID 90 Days Qty: 180 1RF atorvastatin 80 mg tablet 80 mg PO DAILY 90 Days Qty: 90 0RF (DME) pen needle, diabetic 31 gauge x 3/16 needle See Rx Instructions subcut TID Qty: 100 1RF Rx Instructions: As directed estradiol 0.01 % (0.1 mg/gram) cream See Rx Instructions vaginal 3XW Qty: 42.5 1RF Rx Instructions: vaginally 3 times a week; pea sized amount to urethra 3 times a week amlodipine [Norvasc] 5 mg tablet 5 mg PO DAILY 30 Days Qty: 90 0RF tolterodine 2 mg capsule,extended release 24hr 2 mg PO DAILY 30 Days Qty: 30 1RF sulfamethoxazole-trimethoprim [Bactrim DS] 800-160 mg tablet 1 tab PO BID 10 Days Qty: 20 0RF (DME) OneTouch Ultra Test Strip See Rx Instructions .Route Qty: 100 2RF Rx Instructions: Use to check blood sugar twice daily and when having symptoms of hypo/hyperglycemia (DME) lancets [OneTouch Delica Lancets] 30 gauge misc See Rx Instructions .Route Qty: 100 2RF Rx Instructions: Use to check blood sugar twice daily and when having symptoms of hypo/hyperglycemia (DME) blood-glucose meter [OneTouch Ultra2 Meter] Misc See Rx Instructions .Route Qty: 1 0RF Rx Instructions: Use to check blood sugar twice daily and when having symptoms of hypo/hyperglycemia ondansetron 4 mg tablet,disintegrating 4 mg PO ONCE PRN (Reason: nausea and vomiting) 30 Days Qty: 30 0RF montelukast 10 mg tablet 10 mg PO DAILY Qty: 90 1RF lisinopril 5 mg tablet 5 mg PO DAILY Qty: 90 0RF Hold Instructions: Resume on 12/10/21. (DME) pen needle, diabetic [BD Ultra-Fine Mini Pen Needle] 31 gauge x 3/16 needle See Rx Instructions .Route Qty: 100 2RF Rx Instructions: Use to administer insulin twice daily (DME) AeroEclipse II Nebulizer Misc See Rx Instructions .ROUTE .MEDSUPPLY Qty: 1 0RF Rx Instructions: As directed gabapentin 300 mg capsule 300 mg PO DAILY hydroxyzine pamoate 25 mg capsule 25 mg PO BEDTIME trazodone 100 mg tablet 200 mg PO BEDTIME aspirin 81 mg Tablet,Chewable 81 mg PO DAILY cholecalciferol (vitamin D3) 25 mcg (1,000 unit) Capsule 25 mcg PO DAILY sulfamethoxazole-trimethoprim [Bactrim DS] 800-160 mg tablet 1 tab PO BID 7 Days Qty: 14 0RF gabapentin 300 mg capsule 900 mg PO BEDTIME Rx Instructions: pt takes 1 300mg in am and pm and 3 and bedtime (DME) adult diapers large large See Rx Instructions .Route .MEDSUPPLY Qty: 100 6RF Rx Instructions: twice a day bupropion HCl 150 mg tablet extended release 24 hr 150 mg PO DAILY (DME) oxygen-air delivery systems Device See Rx Instructions .ROUTE .MEDSUPPLY Qty: 1 Rx Instructions: As directed ropinirole 4 mg tablet 4 mg PO BID Referrals: Shelbi Perez MD [Primary Care Provider] - Stand Alone Forms: Work/School Release Interventions: ED Discharge Assessment Last Done: 10/13/22 15:25 Discharge Date/Time: 10/13/22 15:25 Print Language: Setswana
--- NOTE | 2022-10-13 10:55 | ECG_ITS ---
Test Reason : ABD PAIN, N/V Blood Pressure : / mmHG Vent. Rate : 086 BPM Atrial Rate : 086 BPM P-R Int : 164 ms QRS Dur : 082 ms QT Int : 368 ms P-R-T Axes : 054 020 027 degrees QTc Int : 440 ms Normal sinus rhythm Nonspecific ST abnormality Abnormal ECG When compared with ECG of 10-JUL-2022 09:20, T wave inversion no longer evident in Anterior leads Referred By: Shima Rai Electronically Signed By:Isaías Denise
[2022-10-13 11:15] LABS: MANUAL DIFF FLAG NO
[2022-10-13 11:22] LABS: Basophils Percent Auto 0.2 % (0-2); Eosinophils Absolute Auto 0.3 X10*3/uL (0.0-0.4); Eosinophils Percent Auto 2.8 % (0-4); Hematocrit 39.2 % (37.0-47.0); Hemoglobin 12.4 g/dl (12.0-16.0); Imm Gran Abs Auto 0.06 X10*3/uL (0.00-0.03); Imm Gran Pct Auto 0.7 % (0.0-0.4); Lymphocytes Absolute Auto 1.7 X10*3/uL (1.2-4.9); Lymphocytes Percent Auto 19.3 % (20-40); Mean Corpuscular HGB Conc 31.6 g/dl (31.0-35.0); Mean Corpuscular Hemoglobin 27.3 pg (27.0-33.0); Mean Corpuscular Volume 86.2 fL (80.0-98.0); Mean Platelet Volume 11.6 fL (9.4-12.3); Monocytes Absolute Auto 0.4 X10*3/uL (0.1-1.2); Monocytes Percent Auto 4.1 % (2-11); Neutrophils Absolute Auto 6.4 x10*3/uL (2.0-8.3); Neutrophils Percent Auto 72.9 % (45-73); Platelet Count 257 X10*3/uL (160-400); Red Blood Count 4.55 X10*6/uL (4.20-5.50); Red Cell Distribution Width 14.1 % (11.0-16.0); White Blood Count 8.8 X10*3/uL (4.8-10.8)
[2022-10-13 11:39] LABS: Alanine Aminotransferase 19 U/L (0-31); Albumin Level 4.1 g/dL (3.5-5.0); Alkaline Phosphatase 46 U/L (39-117); Anion Gap 14 (12-20); Aspartate Amino Transferase 24 U/L (5-31); Bilirubin Total 0.4 mg/dL (0.0-1.0); Blood Urea Nitrogen 31 mg/dL (9-16); Calcium 9.4 mg/dL (8.4-10.2); Carbon Dioxide 25 mmol/L (22-29); Chloride 101 mmol/L (96-108); Creatinine Clr Calc Pharmacy 26.7; Estimated Glomerular Filt Rate 24; Glucose Random 197 mg/dL (60-115); Magnesium 1.8 mg/dL (1.6-2.6); Potassium 5.2 mmol/L (3.3-5.1); Sodium 135 mmol/L (135-145); Total Protein 6.7 g/dL (6.5-8.0)
[2022-10-13 11:44] LABS: COVID-19 Test Negative (Negative); IDNOW Serial# 55D5AD1C
[2022-10-13 11:52] LABS: Troponin-I High Sensitivity < 3.5 ng/L (<3.5-17.0)
[2022-10-13 12:03] VITALS: BP 114/40; PULSE 80; RESP 16; O2SAT 96
[2022-10-13 12:32] LABS: Appearance Urine Clear; Color Urine Yellow; Glucose Urine UA Negative (Negative); Leukocyte Esterase Urine Negative (Negative); Nitrite Urine Negative (Negative); PH 5.5 (5.0-9.0); Urine Blood Negative (Negative); Urine Ketones Negative (Negative); Urine Protein Negative (Neg-Trace)
[2022-10-13] MEDS: ondansetron HCL 4 MG/2 ML VIAL IVPUSH (13:59)
[2022-10-13] MEDS: Morphine Sulfate 4 MG/ML CARTRIDGE IVPUSH (13:59)
[2022-10-13 14:09] VITALS: BP 135/49; PULSE 83; RESP 16; O2SAT 93
== END 2022-10-13 15:25 | disposition home or self-care (01) ==
PROVIDERS: Physician Assistant Medical; Emergency Provider Emergency Medicine; PCP Internal Medicine
DX: R10.32 Left lower quadrant pain (principal); R11.2 Nausea with vomiting, unspecified; Z20.822 Contact with and (suspected) exposure to COVID-19; Z20.828 Contact with and (suspected) exposure to other viral communicable diseases; Z79.899 Other long term (current) drug therapy
CPT/HCPCS: 74176; 80053; 81003; 83735; 84484; 85025; 87635; 93005; 96374; 96375; 99284; 99285; J2270; J2405

== ENCOUNTER 2022-11-12 08:57 | Outpatient (REF) | payer OTHER, SELFPAY ==
--- NOTE | ~2022-11-12 | US_ITS ---
EXAMINATION: US RETROPERITONEAL LIMITED (RENAL ONLY) CLINICAL INFORMATION: Other microscopic hematuria. COMPARISON: CT abdomen pelvis 10/13/2022. X-ray abdomen KUB 11/23/2021. Renal ultrasound 09/25/2021. TECHNIQUE: Real-time imaging of the kidneys. Technically difficult study secondary to body habitus. FINDINGS: RIGHT KIDNEY: 9.7 x 3.7 x 5.1 cm (SAG x AP x TRV). The kidney is normal in size, contour, and echogenicity. Renal cortical thickness is normal. No calculi or focal parenchymal lesions. No hydronephrosis. LEFT KIDNEY: 10.5 x 3.8 x 5.0 cm (SAG x AP x TRV). The kidney is normal in size, contour, and echogenicity. Renal cortical thickness is normal. No calculi or focal parenchymal lesions. No hydronephrosis. US/US renal BI IMPRESSION: Unremarkable renal ultrasound.
== END 2022-11-12 08:58 | disposition home or self-care (01) ==
LOC: HO.HMGCX 08:57
PROVIDERS: PCP Internal Medicine; Visit Provider Nurse Practitioner Family
DX: R31.29 Other microscopic hematuria (principal); N32.81 Overactive bladder; J44.9 Chronic obstructive pulmonary disease, unspecified; R09.02 Hypoxemia; R05.9 Cough, unspecified
CPT/HCPCS: 76775; 99212

== ENCOUNTER 2022-11-19 10:30 | Outpatient (REF) | payer OTHER, SELFPAY ==
--- NOTE | ~2022-11-19 | US_ITS ---
EXAMINATION: US PELVIS LIMITED (BLADDER) CLINICAL INFORMATION: Overactive bladder, microscopic hematuria. COMPARISON: Ultrasound retroperitoneal limited (renal only) 11/12/2022. CT abdomen and pelvis without contrast 10/13/2022. X-ray abdomen KUB 11/23/2021. Ultrasound retroperitoneal limited (renal only) 09/25/2021. X-ray abdomen 03/09/2018. TECHNIQUE: Real-time imaging of the bladder. FINDINGS: BLADDER: Well distended and normal. Bilateral ureteral jets are demonstrated. Prevoid bladder volume is 196.6 mL. Postvoid bladder volume is 47.7 mL. US/US bladder IMPRESSION: [id number] post void residual bladder volume. Normal bilateral ureteral jets.
--- NOTE | ~2022-11-19 | MM_ITS ---
EXAMINATION: MM SCREENING DIGITAL BREAST TOMOSYNTHESIS, BILATERAL CLINICAL INFORMATION: Screening. Asymptomatic. The lifetime risk of breast cancer based on the Tyrer-Cuzick Model is 2%. COMPARISON: Mammography: 11/17/2020, 09/03/2018, 03/01/2019, 09/03/2018 TECHNIQUE: Digital breast tomosynthesis is performed in both the craniocaudal and mediolateral oblique views along with computer-aided detection (CAD). Synthesized 2D images are generated from the tomosynthesis. FINDINGS: There are scattered areas of fibroglandular density (ACR BI-RADS breast composition Category b). Parenchymal pattern is similar to prior exams. There are scattered fibronodular and minor asymmetric fibroglandular densities similar to prior exams. No developing density or architectural abnormality. There are no significant masses, abnormal calcifications, or other abnormalities. The axilla and skin contours are unremarkable. No significant changes from prior studies. MM/MM tomosynthesis screening BI IMPRESSION: No mammographic evidence of malignancy. ASSESSMENT: BI-RADS 2: Benign RECOMMENDATION: Routine annual mammography screening. This patient's information was entered into a reminder system with a target due date for their next mammogram.
[2022-11-19 12:01] LABS: Estimated Average Glucose 200 mg/dL; Hemoglobin A1c % 8.6 %
[2022-11-19 12:48] LABS: Alanine Aminotransferase 25 U/L (0-31); Albumin Level 3.9 g/dL (3.5-5.0); Alkaline Phosphatase 42 U/L (39-117); Anion Gap 16 (12-20); Aspartate Amino Transferase 26 U/L (5-31); Bilirubin Total 0.4 mg/dL (0.0-1.0); Blood Urea Nitrogen 24 mg/dL (9-16); Calcium 9.6 mg/dL (8.4-10.2); Carbon Dioxide 29 mmol/L (22-29); Chloride 99 mmol/L (96-108); Estimated Glomerular Filt Rate 35; Glucose Random 208 mg/dL (60-115); Potassium 4.5 mmol/L (3.3-5.1); Sodium 139 mmol/L (135-145); Total Protein 6.4 g/dL (6.5-8.0)
== END 2022-11-19 10:31 | disposition home or self-care (01) ==
LOC: HO.HMGCLDS 10:30
PROVIDERS: PCP Internal Medicine; Visit Provider Internal Medicine
DX: Z12.31 Encounter for screening mammogram for malignant neoplasm of breast (principal); E13.9 Other specified diabetes mellitus without complications; R79.89 Other specified abnormal findings of blood chemistry; R31.29 Other microscopic hematuria; N32.81 Overactive bladder; Z79.4 Long term (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 insulin
CPT/HCPCS: 36415; 76857; 77063; 77067; 80053; 83036

== ENCOUNTER → 2022-11-26 14:37 | Outpatient (BNVA) | payer OTHER, SELFPAY | PROVIDERS: PCP Internal Medicine; Visit Provider Nurse Practitioner Family | DX: N32.81 Overactive bladder (principal); Z79.899 Other long term (current) drug therapy | CPT/HCPCS: 51798; 99212 ==

== ENCOUNTER 2022-12-20 21:08 | Emergency (ER) | payer OTHER, SELFPAY ==
--- NOTE | ~2022-12-20 | US_ITS ---
EXAMINATION: US VENOUS ULTRASOUND WITH DOPPLER LOWER EXTREMITY, LEFT CLINICAL INFORMATION: Left lower extremity swelling. COMPARISON: Lower extremity Doppler venous ultrasound of 01/04/2022. TECHNIQUE: Ultrasound of the deep veins is performed from the hip to the calf with compression sonography and color and pulse Doppler assessment. Spectral analysis with color-flow imaging is performed. FINDINGS: There is normal venous compression and respiratory variation and augmented flow. The visualized common femoral vein, superficial femoral vein, profunda femoral vein, popliteal vein, and posterior tibial veins shows no evidence of deep venous thrombosis. There is no significant popliteal fossa cyst. The left peroneal veins could not be well demonstrated. If the patient's symptoms persist, followup ultrasound in 5 days 7 days might be of value to exclude proximal propagation from a non-visualized calf vein. US/US venous duplex LE LT IMPRESSION: No DVT demonstrated in the left lower extremity, above the knee. Left peroneal veins could not be demonstrated.
[2022-12-20 21:25] VITALS: BP 147/44; BP 196/100; PULSE 107; PULSE 99; RESP 24; TEMP 36.3; O2SAT 93; O2SAT 95; BMI 43.8
--- NOTE | 2022-12-20 22:11 | MHC.EDTECH ---
Pt was able to ambulate to the bathroom to void. SG
[2022-12-20 22:22] VITALS: BP 167/75; PULSE 104; RESP 14; TEMP 36.2; O2SAT 93
--- NOTE | 2022-12-20 22:36 | PC.NURSE ---
pt very anxiouse, pulling off clothing, not keeping o2 on md made aware,
--- NOTE | 2022-12-20 23:31 | ED_ITS ---
HPI - General Adult General Chief complaint: General Medical Stated complaint: sob diarrhea Time Seen by Provider: 12/20/22 22:43 Source: patient and EMS Mode of arrival: EMS Limitations: no limitations History of Present Illness HPI narrative: 72-year-old female past medical history significant for hypertension, h yperlipidemia, diabetes, GERD, obesity, ALDO on CPAP, osteoarthritis, osteochondroma of the left femur, COPD on 2-3 L of oxygen at home, colitis?here with complaints of restlessness, agitation, anxiety, several episodes of diarrhea. Patient reports these symptoms began after starting Mirapex 0.5 mg b.i.d. on December 15 for restless leg syndrome by her neurologist. She was on Requip prior to this but did not feel that was helping her restless leg symptoms. There for her neurologist changed her to a new medication. Patient also complaining of left lower extremity swelling. Unable quantify how long this is been going on for. No associated redness, warmth, fevers or chill, shortness of breath or chest pain Related Data Home Medications Medication Instructions Recorded Confirmed bupropion HCl 150 mg 24 hr tablet, 150 mg PO DAILY 04/25/20 11/19/22 extended release oxygen-air delivery systems ##1 04/25/20 11/19/22 gabapentin 300 mg capsule 900 mg PO BEDTIME 05/13/21 11/19/22 gabapentin 300 mg capsule 300 mg PO DAILY 06/29/21 11/19/22 blood sugar diagnostic (FreeStyle 08/09/21 11/19/22 Lite Strips) aspirin 81 mg chewable tablet 81 mg PO DAILY 10/01/21 11/19/22 trazodone 100 mg tablet 200 mg PO BEDTIME 10/01/21 11/19/22 cholecalciferol (vitamin D3) 25 25 mcg PO DAILY 01/04/22 11/19/22 mcg (1,000 unit) capsule ropinirole 4 mg tablet 4 mg PO BID 08/05/22 11/19/22 hydroxyzine pamoate 25 mg capsule 25 mg PO BEDTIME 08/13/22 11/19/22 Previous Rx's Medication Instructions Recorded nebulizers (AeroEclipse II #1 ea 02/05/21 Nebulizer) lancets 28 gauge #100 ea 06/24/21 bisacodyl 5 mg tablet,delayed 10 mg PO ONCE 1 day #2 tabs 01/14/22 release (Dulcolax (bisacodyl)) polyethylene glycol 3350 17 238 g PO ONCE 1 day #238 grams 01/14/22 gram/dose oral powder (Miralax) docusate sodium 100 mg capsule 100 mg PO BID #60 caps 02/07/22 (Colace) adult diapers large #100 ea 02/25/22 albuterol sulfate 1.25 mg/3 mL 1.25 mg (3 mL) inhalation Q4-6H 03/18/22 solution for nebulization PRN shortness of breath or wheezing #150 mL diaper,brief,adult,disposable #64 ea 05/06/22 albuterol sulfate 90 mcg/actuation 2 puff inhalation Q4-6H PRN 05/17/22 aerosol inhaler (ProAir HFA) shortness of breath or wheezing 30 days #8.5 grams ipratropium 0.5 mg-albuterol 3 mg 3 ml inhalation Q6H PRN wheezing, 05/26/22 (2.5 mg base)/3 mL nebulization copd 30 days #180 mL soln ropinirole 2 mg tablet 2 mg PO BID 90 days #180 tabs 06/02/22 pen needle, diabetic 31 gauge x #100 ea 07/11/2209/25 estradiol 0.01% (0.1 mg/gram) See Rx Instructions vaginal 3XW 08/21/22 vaginal cream #42.5 grams blood sugar diagnostic (OneTouch #100 ea 09/16/22 Ultra Test strips) lancets 30 gauge (OneTouch Delica #100 ea 09/16/22 Lancets) blood-glucose meter (OneTouch #1 ea 09/19/22 Ultra2 Meter) ondansetron 4 mg disintegrating 4 mg PO ONCE PRN nausea and 09/19/22 tablet vomiting 30 days #30 tabs montelukast 10 mg tablet 10 mg PO DAILY #90 tabs 10/03/22 lisinopril 5 mg tablet 5 mg PO DAILY #90 tabs 10/06/22 pen needle, diabetic 31 gauge x #100 ea 10/14/22 3 (BD Ultra-Fine Mini Pen Needle) amlodipine 5 mg tablet (Norvasc) 5 mg PO DAILY 30 days #90 tabs 10/29/22 insulin detemir U-100 100 unit/mL 20 unit (0.2 mL) subcut DAILY 90 10/29/22 (3 mL) subcutaneous pen (Levemir days #18 mL FlexTouch U-100 Insulin) fluticasone furoate 200 1 inh inhalation DAILY COPD 30 11/14/22 mcg-vilanterol 25 mcg/dose days #60 ea inhalation powder (Breo Ellipta) nitrofurantoin 100 mg PO BID 7 days #14 caps 11/19/22 monohydrate/macrocrystals 100 mg capsule (Macrobid) atorvastatin 80 mg tablet 80 mg PO DAILY 90 days #90 tabs 11/21/22 tolterodine 2 mg capsule,extended 2 mg PO DAILY 90 days #90 caps 11/26/22 release 24 hr insulin aspart U-100 100 unit/mL 10 unit (0.1 mL) subcut TID #15 mL 12/10/22 (3 mL) subcutaneous pen (Novolog FlexPen U-100 Insulin aspart) Allergies Allergy/AdvReac Type Severity Reaction Status Date / Time adhesive tape [ADHESIVE TAPE] Allergy Intermediate RASH Verified 11/26/22 14:39 trimethobenzamide Allergy Mild NAUSEA Verified 11/26/22 14:39 [From TIGAN] environmental Allergy Intermediate Nasal Uncoded 11/26/22 14:39 congestion Review of Systems Review of Systems: Yes all other systems are reviewed and are negative Constitutional: Constitutional: Reports no additional constitutional complaints, Denies body ache(s), Denies chills, Denies fever(s), Denies headach e(s) and Denies weakness Eyes: Eyes: Reports no additional eye complaints and Denies change in vision ENT: Reports system reviewed and no additional complaints, except as documented, Denies dizziness, Denies headache(s), Denies nasal congestion, Denies nasal discharge and Denies neck pain Cardiovascular: Cardiovascular: Reports no additional cardiovascular com plaints, Denies chest pain, Denies leg edema and Denies dyspnea Respiratory: Respiratory: Reports no additional respiratory complaints, Denies cough and Denies dyspnea Gastrointestinal: Gastrointestinal: Reports no additional gastrointestinal complaints, Denies abdominal pain, Denies diarrhea, Denies nausea and Denies vomiting Genitourinary: Genitourinary: Reports no additional female genitourinary complaints and Denies urinary incontinence Musculoskeletal: Musculoskeletal: Reports no additional musculoskeletal complaints, Denies back pain, Denies arthralgias, Denies joint swelling, Denies neck pain, Denies numbness and Denies tingling Integumentary/Breasts: Skin/Breast: Reports system reviewed and no additional complaints, except as docu and Denies rash Neurologic: Reports system reviewed and no additional complaints, except as documented, Denies dizziness, Denies headache(s), Denies numbness, Denies tingling and Denies weakness Psychiatric: Psychiatric: Reports anxiety and Reports irritability PMFSH Past Medical History Attestation statement: The following information was validated with the patient. Source: old records reviewed and nursing notes reviewed Medical History Allergic rhinitis Anemia Arthritis CKD (chronic kidney disease) Constipation due to opioid therapy COPD (chronic obstructive pulmonary disease) COPD exacerbation CPAP (continuous positive airway pressure) dependence Diabetes Elevated cholesterol GERD (gastroesophageal reflux disease) History of adrenal adenoma History of diverticulitis History of restless legs syndrome Hx SBO Hyperlipidemia Hypoxemia Morbid obesity Obesity (BMI 30-39.9) ALDO (obstructive sleep apnea) Osteoarthritis of left knee Osteochondroma of left femur Respiratory failure with hypoxia Urinary tract infection Surgical History H/O colonoscopy H/O excision of mass H/O exploratory laparotomy History of appendectomy History of arthroscopy of left knee History of cholecystectomy History of hysterectomy History of oophorectomy History of partial colectomy History of surgery Hx of cataract extraction Family History Family History Father HTN (hypertension) Diabetes mellitus Mother HTN (hypertension) Liver cancer Social History Social History 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: Other 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 Other:: EX Housing: Apartment Are you a primary manager home healthcare to a significant other at home: No Do you presently have visiting nurse or other home services: No Alcohol intake: never Patient Tobacco Use Status: Never used Tobacco e-Cigarette/Vaping Use: Never Used Second Hand Smoke Exposure: No Advance Directives: No Advance Directives Information Provided: Yes Advance Directives Date on File: 07/08/21 service: No Current occupational status: retired Cognitive needs: No Hearing needs: No Vision needs: No Physical Exam ED Vital Signs: Vital Signs - 24 hr 12/20/22 21:25 12/20/22 22:22 12/21/22 00:00 Temperature 97.4 F 97.1 F Pulse Rate 99 104 H 104 H Respiratory Rate 24 H 14 18 Blood Pressure 147/44 H 167/75 H 174/72 H Pulse Oximetry 93 93 98 Oxygen Delivery Method Room Air Room Air Nasal Cannula Oxygen Flow Rate 2 BMI result Body Mass Index 43.8 Const General: cooperative, healthy appearing, comfortable and no acute distress Orientation/consciousness: patient oriented x3 Limitations: no limitations HENMT Head: Yes normal to inspection Ears: hearing grossly normal bilaterally Eyes General: appearance normal, both eyes and all related structures Pupils: Equal, round and reactive pupils present Neck Neck: Yes normal visual inspection, Yes full ROM, Yes no lymphadenopathy and Yes no meningeal signs Chest Chest palpation & inspection: normal inspection of the chest Resp Effort & Inspection: normal respiratory effort Auscultation: clear to auscultation bilaterally Cardio Rate: regular rate Rhythm: regular rhythm Peripheral pulses: Peripheral pulses 2+ throughout Skin General skin exam: no rashes or lesions noted Neuro General: patient oriented x3, moves all extremities, no meningeal signs and Unable to assess gait Cranial nerves: Yes Equal, round and reactive pupils present Cognition (Neuro): normal cognition Gait exam (Neuro): Unable to assess gait Motor exam (neuro): 5/5 motor strength present throughout Sensory Exam: Normal double simultaneous stimulation for sensation Extrem Other: Left calf tenderness with nonpitting swelling. There are palpable DP and PT pulse. Sensation intact distally Course Course Course Narrative: Ultrasound is negative for DVT. Labs are unremarkable. Patient reports improvement of some of her symptoms with some lorazepam. We discussed that her symptoms are likely secondary to recent medication change. I would recommend she hold the Mirapex and discuss her medications with her neurologist and primary care doctor on Thursday. Reviewed worrisome signs and symptoms of when to return to the emergency room. Comfortabe with plan for discharge home Medications Administered Discontinued Medications Generic Name Dose Route Start Last Admin Trade Name Freq PRN Reason Stop Dose Admin Lorazepam 2 mg 12/20/22 22:54 12/20/22 23:58 Lorazepam 1 Mg Tablet PO 12/20/22 22:55 2 mg ONCE ONE Administration Medical Decision Making Medical Decision Making MDM Narrative: 72-year-old female past medical history significant for hypertension, hyperlipidemia, diabetes, GERD, obesity, ALDO on CPAP, osteoarthritis, osteochondroma of the left femur, COPD on 2-3 L of oxygen at home, colitis?here with complaints of restlessness, agitation, anxiety, several episodes of diarrhea. Patient reports these symptoms began after starting Mirapex 0.5 mg b.i.d. on December 15 for restless leg syndrome by her neurologist. She was on Requip prior to this but did not feel that was helping her restless leg symptoms. There for her neurologist changed her to a new medication. Patient also complaining of left lower extremity swelling. Unable quantify how long this is been going on for. No associated redness, warmth, fevers or chill, shortness of breath or chest pain Symptoms are likely related to her recent medication change. Will obtain labs, venous ultrasound to evaluate the left lower extremity swelling and pain Differential Diagnosis Differential Diagnoses: The differential diagnosis associated with the presentation includes Low concern for DVT, cellulitis Consider medication react Lab Data MDM Lab Attestation statement: I reviewed the patient's lab results. 12/20/22 23:37 12/20/22 23:37 Labs: Lab Results 12/20/22 12/20/22 12/20/22 Range/Units 23:37 23:37 23:37 WBC 12.9 H (4.8-10.8) X10*3/uL RBC 4.29 (4.20-5.50) X10*6/uL Hgb 11.9 L (12.0-16.0) g/dl Hct 37.7 (37.0-47.0) % MCV 87.9 (80.0-98.0) fL MCH 27.7 (27.0-33.0) pg MCHC 31.6 (31.0-35.0) g/dl RDW 14.0 (11.0-16.0) % Plt Count 231 (160-400) X10*3/uL MPV 11.6 (9.4-12.3) fL Immature Gran % (Auto) 0.4 (0.0-0.4) % Neut % (Auto) 71.3 (45-73) % Lymph % (Auto) 20.5 (20-40) % [place] % (Auto) 5.3 (2-11) % Eos % (Auto) 2.2 (0-4) % Baso % (Auto) 0.3 (0-2) % Lymph # (Auto) 2.6 (1.2-4.9) X10*3/uL [place] # (Auto) 0.7 (0.1-1.2) X10*3/uL Eos # (Auto) 0.3 (0.0-0.4) X10*3/uL Baso # (Auto) 0.0 (0.0-0.2) X10*3/uL Abs Immat Gran (auto) 0.05 H (0.00-0.03) X10*3/uL Absolute Neuts (auto) 9.2 H (2.0-8.3) x10*3/uL Absolute Nucleated RBC 0.000 (0.0-0.012) X10*3/uL Nucleated RBC % (auto) 0.0 (0.0-0.2) /100WBC PT 10.2 (10.0-13.1) SEC INR 0.9 (0.9-1.1) Sodium 140 (135-145) mmol/L Potassium 4.7 (3.3-5.1) mmol/L Chloride 102 (96-108) mmol/L Carbon Dioxide 27 (22-29) mmol/L Anion Gap 16 (12-20) BUN 25 H (9-16) mg/dL Creatinine 1.64 H (0.5-1.4) mg/dL Estim Creat Clear Calc 33.2 Estimated GFR 31 Random Glucose 212 H (60-115) mg/dL Calcium 9.6 (8.4-10.2) mg/dL Magnesium 1.9 (1.6-2.6) mg/dL Total Bilirubin 0.3 (0.0-1.0) mg/dL Direct Bilirubin 0.1 (0.0-0.5) mg/dL AST 25 (5-31) U/L ALT 26 (0-31) U/L Alkaline Phosphatase 46 (39-117) U/L Total Protein 6.7 (6.5-8.0) g/dL Albumin 3.9 (3.5-5.0) g/dL Independent Interpretation I performed an independent interpretation of an: Ultrasound Interpretation: I independently reviewed the ultrasound agree with radiologist's report Radiology Impression Discussion of test interpretation with radiology: I have reviewed the radiologist's reading. Radiologist Impression: [address] [address] Ultrasound Report Signed Patient: Mine Peacock MR#: [id number] : 1950 Acct:[id number] Age/Sex: 72 / F ADM Date: 12/20/22 Loc: HO.ED Attending Dr: Ordering Physician: Janett Talavera NP Date of Service: 12/20/22 Procedure(s): US venous duplex LE LT Accession Number(s): [id number] cc: Janett Talavera NP~ EXAMINATION:? US VENOUS ULTRASOUND WITH DOPPLER LOWER EXTREMITY, LEFT CLINICAL INFORMATION:? Left lower extremity swelling. COMPARISON:? Lower extremity Doppler venous ultrasound of 01/04/2022. TECHNIQUE: Ultrasound of the deep veins is performed from the hip to the calf with compression sonography and color and pulse Doppler assessment. Spectral analysis with color-flow imaging is performed. FINDINGS: There is normal venous compression and respiratory variation and augmented flow. The visualized common femoral vein, superficial femoral vein, profunda femoral vein, popliteal vein, and posterior tibial veins shows no evidence of deep venous thrombosis. ? There is no significant popliteal fossa cyst. The left peroneal veins could not be well demonstrated. If the patient's symptoms persist, followup ultrasound in 5 days 7 days might be of value to exclude proximal propagation from a non-visualized calf vein. US/US venous duplex LE LT IMPRESSION: No DVT demonstrated in the left lower extremity, above the knee. Left peroneal veins could not be demonstrated. Discharge Plan Discharge Clinical Impression: Medication reaction Patient Disposition: Home, Self-Care Instructions: Anxiety (ED) Additional Instructions: Please stop taking the Mirapex if you feel that it is making her symptoms worse Discuss this with your neurologist on Thursday Prescriptions: No Action (DME) lancets 28 gauge misc See Rx Instructions topical TID Qty: 100 3RF Rx Instructions: once a day (DME) FreeStyle Lite Strips Strip See Rx Instructions .Route Rx Instructions: Use to check blood sugar twice daily and when having symptoms of hypo/hyperglycemia bisacodyl [Dulcolax (bisacodyl)] 5 mg tablet,delayed release (DR/EC) 10 mg PO ONCE 1 Days Qty: 2 0RF Rx Instructions: take orally as directed prior to colonoscopy polyethylene glycol 3350 [Miralax] 17 gram/dose powder 238 g PO ONCE 1 Days Qty: 238 0RF Rx Instructions: take orally as directed prior to colonoscopy docusate sodium [Colace] 100 mg capsule 100 mg PO BID Qty: 60 2RF albuterol sulfate 1.25 mg/3 mL solution for nebulization 1.25 mg inhalation Q4-6H PRN (Reason: shortness of breath or wheezing) Qty: 150 2RF (DME) diaper,brief,adult,disposable Misc See Rx Instructions .Route Qty: 64 5RF Rx Instructions: Use for stress incontinence albuterol sulfate [ProAir HFA] 90 mcg/actuation HFA aerosol inhaler 2 puff inhalation Q4-6H PRN (Reason: shortness of breath or wheezing) 30 Days Qty: 8.5 2RF ipratropium-albuterol 0.5 mg-3 mg(2.5 mg base)/3 mL solution for nebulization 3 ml inhalation Q6H PRN (Reason: wheezing, copd) 30 Days Qty: 180 3RF ropinirole 2 mg tablet 2 mg PO BID 90 Days Qty: 180 1RF (DME) pen needle, diabetic 31 gauge x 3/16 needle See Rx Instructions subcut TID Qty: 100 1RF Rx Instructions: As directed estradiol 0.01 % (0.1 mg/gram) cream See Rx Instructions vaginal 3XW Qty: 42.5 1RF Rx Instructions: vaginally 3 times a week; pea sized amount to urethra 3 times a week (DME) OneTouch Ultra Test Strip See Rx Instructions .Route Qty: 100 2RF Rx Instructions: Use to check blood sugar twice daily and when having symptoms of hypo/hype rglycemia (DME) lancets [OneTouch Delica Lancets] 30 gauge misc See Rx Instructions .Route Qty: 100 2RF Rx Instructions: Use to check blood sugar twice daily and when having symptoms of hypo/hyperglycemia (DME) blood-glucose meter [OneTouch Ultra2 Meter] Misc See Rx Instructions .Route Qty: 1 0RF Rx Instructions: Use to check blood sugar twice daily and when having symptoms of hypo/hyperglycemia ondansetron 4 mg tablet,disintegrating 4 mg PO ONCE PRN (Reason: nausea and vomiting) 30 Days Qty: 30 0RF montelukast 10 mg tablet 10 mg PO DAILY Qty: 90 1RF lisinopril 5 mg tablet 5 mg PO DAILY Qty: 90 0RF Hold Instructions: Resume on 12/10/21. (DME) pen needle, diabetic [BD Ultra-Fine Mini Pen Needle] 31 gauge x 3/16 needle See Rx Instructions .Route Qty: 100 2RF Rx Instructions: Use to administer insulin twice daily amlodipine [Norvasc] 5 mg tablet 5 mg PO DAILY 30 Days Qty: 90 0RF Levemir FlexTouch U100 Insulin 100 unit/mL (3 mL) insulin pen 20 unit subcut DAILY 90 Days Qty: 18 3RF fluticasone furoate-vilanterol [Breo Ellipta] 200-25 mcg/dose blister with device 1 inh inhalation DAILY 30 Days Qty: 60 4RF atorvastatin 80 mg tablet 80 mg PO DAILY 90 Days Qty: 90 0RF insulin aspart U-100 [Novolog FlexPen U-100 Insulin] 100 unit/mL (3 mL) insulin pen 10 unit subcut TID Qty: 15 0RF (DME) AeroEclipse II Nebulizer Misc See Rx Instructions .ROUTE .MEDSUPPLY Qty: 1 0RF Rx Instructions: As directed gabapentin 300 mg capsule 300 mg PO DAILY hydroxyzine pamoate 25 mg capsule 25 mg PO BEDTIME trazodone 100 mg tablet 200 mg PO BEDTIME aspirin 81 mg Tablet,Chewable 81 mg PO DAILY cholecalciferol (vitamin D3) 25 mcg (1,000 unit) Capsule 25 mcg PO DAILY gabapentin 300 mg capsule 900 mg PO BEDTIME Rx Instructions: pt takes 1 300mg in am and pm and 3 and bedtime (DME) adult diapers large large See Rx Instructions .Route .MEDSUPPLY Qty: 100 6RF Rx Instructions: twice a day nitrofurantoin monohyd/m-cryst [Macrobid] 100 mg capsule 100 mg PO BID 7 Days Qty: 14 0RF Rx Instructions: must administer with a meal/food bupropion HCl 150 mg tablet extended release 24 hr 150 mg PO DAILY (DME) oxygen-air delivery systems Device See Rx Instructions .ROUTE .MEDSUPPLY Qty: 1 Rx Instructions: As directed ropinirole 4 mg tablet 4 mg PO BID tolterodine 2 mg capsule,extended release 24hr 2 mg PO DAILY 90 Days Qty: 90 3RF Referrals: Shelbi Perez MD [Primary Care Provider] - 1 week Interventions: ED Discharge Assessment Last Done: 12/21/22 01:30 Discharge Date/Time: 12/21/22 01:31
[2022-12-20 23:42] LABS: MANUAL DIFF FLAG NO
[2022-12-20 23:53] LABS: Basophils Percent Auto 0.3 % (0-2); Eosinophils Absolute Auto 0.3 X10*3/uL (0.0-0.4); Eosinophils Percent Auto 2.2 % (0-4); Hematocrit 37.7 % (37.0-47.0); Hemoglobin 11.9 g/dl (12.0-16.0); Imm Gran Abs Auto 0.05 X10*3/uL (0.00-0.03); Imm Gran Pct Auto 0.4 % (0.0-0.4); Lymphocytes Absolute Auto 2.6 X10*3/uL (1.2-4.9); Lymphocytes Percent Auto 20.5 % (20-40); Mean Corpuscular HGB Conc 31.6 g/dl (31.0-35.0); Mean Corpuscular Hemoglobin 27.7 pg (27.0-33.0); Mean Corpuscular Volume 87.9 fL (80.0-98.0); Mean Platelet Volume 11.6 fL (9.4-12.3); Monocytes Absolute Auto 0.7 X10*3/uL (0.1-1.2); Monocytes Percent Auto 5.3 % (2-11); Neutrophils Absolute Auto 9.2 x10*3/uL (2.0-8.3); Neutrophils Percent Auto 71.3 % (45-73); Platelet Count 231 X10*3/uL (160-400); Red Blood Count 4.29 X10*6/uL (4.20-5.50); White Blood Count 12.9 X10*3/uL (4.8-10.8)
[2022-12-20 23:58] LABS: INTERNATIONAL NORM RATIO 0.9 (0.9-1.1); Prothrombin Time 10.2 SEC (10.0-13.1)
[2022-12-20] MEDS: LORazepam 1 MG TABLET 2 MG PO (23:58)
[2022-12-21] VITALS: BP 174/72; PULSE 104; RESP 18; O2SAT 98
[2022-12-21 00:12] LABS: Alanine Aminotransferase 26 U/L (0-31); Albumin Level 3.9 g/dL (3.5-5.0); Alkaline Phosphatase 46 U/L (39-117); Anion Gap 16 (12-20); Aspartate Amino Transferase 25 U/L (5-31); Bilirubin Direct 0.1 mg/dL (0.0-0.5); Bilirubin Total 0.3 mg/dL (0.0-1.0); Blood Urea Nitrogen 25 mg/dL (9-16); Calcium 9.6 mg/dL (8.4-10.2); Carbon Dioxide 27 mmol/L (22-29); Chloride 102 mmol/L (96-108); Glucose Random 212 mg/dL (60-115); Magnesium 1.9 mg/dL (1.6-2.6); Potassium 4.7 mmol/L (3.3-5.1); Sodium 140 mmol/L (135-145); Total Protein 6.7 g/dL (6.5-8.0)
[2022-12-21 00:13] LABS: Creatinine Clr Calc Pharmacy 33.2; Estimated Glomerular Filt Rate 31
--- NOTE | 2022-12-21 00:55 | PC.NURSE ---
pt calling her son for a ride home. pt feeling better and ready for discharge.
== END 2022-12-21 01:31 | disposition home or self-care (01) ==
PROVIDERS: Nurse Practitioner Family; Emergency Provider Emergency Medicine; PCP Internal Medicine
DX: R45.1 Restlessness and agitation (principal); F41.9 Anxiety disorder, unspecified; T42.8X5A Adverse effect of antiparkinsonism drugs and other central muscle-tone depressants, initial encounter; Y92.9 Unspecified place or not applicable; R19.7 Diarrhea, unspecified; M79.605 Pain in left leg; M79.604 Pain in right leg; G25.81 Restless legs syndrome; E10.22 Type 1 diabetes mellitus with diabetic chronic kidney disease; I12.9 Hypertensive chronic kidney disease with stage 1 through stage 4 chronic kidney disease, or unspecified chronic kidney disease; N18.30 Chronic kidney disease, stage 3 unspecified; E78.5 Hyperlipidemia, unspecified; E66.9 Obesity, unspecified; Z68.41 Body mass index [BMI] 40.0-44.9, adult; J44.9 Chronic obstructive pulmonary disease, unspecified; Z99.81 Dependence on supplemental oxygen; Z79.899 Other long term (current) drug therapy; Z79.82 Long term (current) use of aspirin; Z79.4 Long term (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 insulin; Z79.02 Long term (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 antithrombotics/antiplatelets
CPT/HCPCS: 36415; 80048; 80076; 83735; 85025; 85610; 93971; 99283; 99284

== ENCOUNTER → 2023-01-14 10:56 | Outpatient (BNVA) | payer OTHER, SELFPAY | PROVIDERS: PCP Internal Medicine; Visit Provider Internal Medicine | DX: J44.9 Chronic obstructive pulmonary disease, unspecified (principal); J96.91 Respiratory failure, unspecified with hypoxia; J30.9 Allergic rhinitis, unspecified | CPT/HCPCS: 99212 ==

== ENCOUNTER 2023-01-24 16:42 | Emergency (ER) | payer OTHER, SELFPAY ==
--- NOTE | ~2023-01-24 | XR_ITS ---
EXAMINATION: XR CHEST CLINICAL INFORMATION: Shortness of breath and chest pain COMPARISON: Chest radiograph 07/10/2022 TECHNIQUE: Frontal view of the chest was obtained. FINDINGS: Heart size mildly enlarged. No other Significant abnormality is noted involving the heart, lungs, mediastinum, bony thorax or soft tissues. XR/XR chest 1V IMPRESSION: Mild cardiomegaly. No acute intrathoracic disease.
--- NOTE | 2023-01-24 16:53 | ED.SOB ---
HPI - SOB/Dyspnea General Chief Complaint: Dyspnea Stated Complaint: SOB?coughing Time Seen by Provider: 01/24/23 17:02 Source: patient and family (Soft) Mode of arrival: ambulatory Limitations: no limitations History of Present Illness HPI Narrative: 73-year-old female history of COPD came in for evaluation of shortness of breath with white sputum for the past 5 days. Patient normally lives with supplemental oxygen 2.5-3 L 02/02 for COPD, no exposure to sick contacts, no recent travel, patient notices bilateral lower extremities increased swelling, complaining of chest pain only with coughing, patient been having chills but no fever. Patient lives home with her limited ambulation home can walk to the bathroom with no actuarial assistant, patient normally sleeps an a recliner at night suffer from PND. Related Data Home Medications Medication Instructions Recorded Confirmed bupropion HCl 150 mg 24 hr tablet, 150 mg PO DAILY 04/25/20 11/19/22 extended release oxygen-air delivery systems ##1 04/25/20 11/19/22 gabapentin 300 mg capsule 900 mg PO BEDTIME 05/13/21 11/19/22 gabapentin 300 mg capsule 300 mg PO DAILY 06/29/21 11/19/22 blood sugar diagnostic (FreeStyle 08/09/21 11/19/22 Lite Strips) aspirin 81 mg chewable tablet 81 mg PO DAILY 10/01/21 11/19/22 trazodone 100 mg tablet 200 mg PO BEDTIME 10/01/21 11/19/22 cholecalciferol (vitamin D3) 25 25 mcg PO DAILY 01/04/22 11/19/22 mcg (1,000 unit) capsule ropinirole 4 mg tablet 4 mg PO BID 08/05/22 11/19/22 hydroxyzine pamoate 25 mg capsule 25 mg PO BEDTIME 08/13/22 11/19/22 pramipexole 0.5 mg tablet 0.5 mg PO BID 01/14/23 Previous Rx's Medication Instructions Recorded nebulizers (AeroEclipse II #1 ea 02/05/21 Nebulizer) lancets 28 gauge #100 ea 06/24/21 bisacodyl 5 mg tablet,delayed 10 mg PO ONCE 1 day #2 tabs 01/14/22 release (Dulcolax (bisacodyl)) polyethylene glycol 3350 17 238 g PO ONCE 1 day #238 grams 01/14/22 gram/dose oral powder (Miralax) docusate sodium 100 mg capsule 100 mg PO BID #60 caps 02/07/22 (Colace) adult diapers large #100 ea 02/25/22 albuterol sulfate 1.25 mg/3 mL 1.25 mg (3 mL) inhalation Q4-6H 03/18/22 solution for nebulization PRN shortness of breath or wheezing #150 mL diaper,brief,adult,disposable #64 ea 05/06/22 albuterol sulfate 90 mcg/actuation 2 puff inhalation Q4-6H PRN 05/17/22 aerosol inhaler (ProAir HFA) shortness of breath or wheezing 30 days #8.5 grams ipratropium 0.5 mg-albuterol 3 mg 3 ml inhalation Q6H PRN wheezing, 05/26/22 (2.5 mg base)/3 mL nebulization copd 30 days #180 mL soln ropinirole 2 mg tablet 2 mg PO BID 90 days #180 tabs 06/02/22 pen needle, diabetic 31 gauge x #100 ea 07/11/2209/25 blood sugar diagnostic (OneTouch #100 ea 09/16/22 Ultra Test strips) lancets 30 gauge (OneTouch Delica #100 ea 09/16/22 Lancets) blood-glucose meter (OneTouch #1 ea 09/19/22 Ultra2 Meter) ondansetron 4 mg disintegrating 4 mg PO ONCE PRN nausea and 09/19/22 tablet vomiting 30 days #30 tabs montelukast 10 mg tablet 10 mg PO DAILY #90 tabs 10/03/22 lisinopril 5 mg tablet 5 mg PO DAILY #90 tabs 10/06/22 pen needle, diabetic 31 gauge x #100 ea 10/14/2209/25 (BD Ultra-Fine Mini Pen Needle) amlodipine 5 mg tablet (Norvasc) 5 mg PO DAILY 30 days #90 tabs 10/29/22 insulin detemir U-100 100 unit/mL 20 unit (0.2 mL) subcut DAILY 90 10/29/22 (3 mL) subcutaneous pen (Levemir days #18 mL FlexTouch U-100 Insulin) fluticasone furoate 200 1 inh inhalation DAILY COPD 30 11/14/22 mcg-vilanterol 25 mcg/dose days #60 ea inhalation powder (Breo Ellipta) nitrofurantoin 100 mg PO BID 7 days #14 caps 11/19/22 monohydrate/macrocrystals 100 mg capsule (Macrobid) atorvastatin 80 mg tablet 80 mg PO DAILY 90 days #90 tabs 11/21/22 tolterodine 2 mg capsule,extended 2 mg PO DAILY 90 days #90 caps 11/26/22 release 24 hr insulin aspart U-100 100 unit/mL 10 unit (0.1 mL) subcut TID #15 mL 12/10/22 (3 mL) subcutaneous pen (Novolog FlexPen U-100 Insulin aspart) estradiol 0.01% (0.1 mg/gram) See Rx Instructions vaginal 3XW 12/29/22 vaginal cream #42.5 grams albuterol sulfate 2.5 mg/3 mL 2.5 mg (3 mL) inhalation Q4-6H PRN 01/24/23 (0.083 %) solution for nebulization shortness of breath or wheezing #75 mL albuterol sulfate 90 mcg/actuation 1 inh inhalation Q4-6H PRN 01/24/23 breath activated powder inhaler shortness of breath or wheezing #1 ea doxycycline hyclate 100 mg tablet 100 mg PO BID #14 tabs 01/24/23 prednisone 20 mg tablet 20 mg PO BID #10 tabs 01/24/23 Allergies Allergy/AdvReac Type Severity Reaction Status Date / Time adhesive tape [ADHESIVE TAPE] Allergy Intermediate RASH Verified 01/24/23 16:53 trimethobenzamide Allergy Mild NAUSEA Verified 01/24/23 16:53 [From TIGAN] environmental Allergy Intermediate Nasal Uncoded 01/14/23 11:54 congestion Review of Systems Review of Systems: All other systems are reviewed and are negative Constitutional: Reports as per HPI and Reports no additional constitutional complaints Eyes: Reports as per HPI and Reports no additional eye complaints Reports system reviewed and no additional complaints, except as documented Cardiovascular: Reports as per HPI and Reports no additional cardiovascular complaints Respiratory: Reports as per HPI and Reports no additional respiratory complaints Gastrointestinal: Reports as per HPI and Reports no additional gastrointestinal complaints Genitourinary: Reports no additional female genitourinary complaints Musculoskeletal: Reports no additional musculoskeletal complaints Skin/Breast: Reports system reviewed and no additional complaints, except as docu Psychiatric: Reports no additional psychiatric complaints Endocrine: Reports no additional endocrine complaints Hematologic/Lymphatic: Reports no additional hematologic/lymphatic complaints Allergic/Immunologic: Reports no additional allergic/immunologic complaints Reports system reviewed and no additional complaints, except as documented and Reports Abnormal speech present [facility] Past Medical History Medical History Allergic rhinitis Anemia Arthritis CKD (chronic kidney disease) Constipation due to opioid therapy COPD (chronic obstructive pulmonary disease) COPD exacerbation CPAP (continuous positive airway pressure) dependence Diabetes Elevated cholesterol GERD (gastroesophageal reflux disease) History of adrenal adenoma History of diverticulitis History of restless legs syndrome Hx SBO Hyperlipidemia Hypoxemia Morbid obesity Obesity (BMI 30-39.9) ALDO (obstructive sleep apnea) Osteoarthritis of left knee Osteochondroma of left femur Respiratory failure with hypoxia Urinary tract infection Surgical History H/O colonoscopy H/O excision of mass H/O exploratory laparotomy History of appendectomy History of arthroscopy of left knee History of cholecystectomy History of hysterectomy History of oophorectomy History of partial colectomy History of surgery Hx of cataract extraction Family History Family History Father HTN (hypertension) Diabetes mellitus Mother HTN (hypertension) Liver cancer Social History Social History 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: Other 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 Other:: EX Housing: Apartment Are you a primary respite care provider to a significant other at home: No Do you presently have visiting nurse or other home services: No Alcohol intake: never Patient Tobacco Use Status: Never used Tobacco Smoked in Last 30 Days: No e-Cigarette/Vaping Use: Never Used Second Hand Smoke Exposure: No Use of substances other than those prescribed or required for medical reasons: No Advance Directives: No Advance Directives Information Provided: No Advance Directives Date on File: 07/08/21 service: No Current occupational status: retired Cognitive needs: No Hearing needs: No Vision needs: No Physical Exam Vital Signs: Vital Signs: Last Vital Signs Temp 98.2 F 01/24/23 20:24 Pulse 83 01/24/23 20:24 Resp 16 01/24/23 20:24 BP 125/40 L 01/24/23 20:24 Pulse Ox 95 01/24/23 20:24 O2 Del Method Nasal Cannula 01/24/23 20:24 O2 Flow Rate 3 01/24/23 20:24 Oxygen Flow Rate 2 01/24/23 16:54 BMI result Body Mass Index 40.4 Vital signs have been reviewed as appeared to be correct. Blood pressure normal. Heart rate normal. Respiration rate normal. Temperature normal. Oxygen saturation normal. Appearance: Alert. Oriented X3. No acute distress. Head: Normal external exam. Normocephalic. Atraumatic. No Hammer signs noted. No raccoon eyes noted Eyes: PERRLA. EOMI. Conjunctiva and sclera normal. Eyelids normal. ENT: TM's Normal. Pharynx normal. Uvula midline. Moist mucous membranes. No trismus noted. No drooling noted. No muffled voice noted. Neck: Normal inspection. Neck supple. FROM. No adenopathy. Thyroid Normal. No meningeal signs. No neck mass noted. CVS: Normal heart rate and rhythm. Heart sound normal. No murmurs noted. Pulses normal throughout. Respiratory: No respiratory distress. Painless inspiration. Breath sounds normal. Bilateral moderate expiratory wheezing with prolonged expiration with basilar rales. Chest nontender. No accessory muscle usage noted or decreased air movement noted. Abdomen: Soft and nontender. Bowel sounds normal in all 4 quadrants. No distention noted. No organomegaly noted. No visible injury noted. Back: No CVA tenderness. Full range of motion noted. Skin: Skin warm and dry. Normal skin color. Normal skin turgor. No rashes/lesions/lacerations noted. Extremities: No lower extremity edema. Extremities exhibit normal range of motion. Extremities nontender. Neuro: Oriented X 3. Cranial nerve exam: II-XII are grossly intact No motor deficit. No sensory deficit. Reflexes normal. Course Course Course Narrative: RME - 73 yo female with history of COPD on 2.5L NC, CKD III, DM, obesity, ALDO, neuropathy, arthritis, depression/anxiety who presents to the ER from home c/o 5-6 days of worsening SOB and productive cough. Using neb Q4 at home with no improvement. She reports intermittent left sided chest pains as well, worse with breathing and coughing. No fevers at home Audibly wheezing in triage. SpO2 94% on 3L NC Plan: CXR, labs, nebs, steroids, and to go back to treatment room now Reevaluation(s) Reevaluation #1: Patient feels better able to bees comfortably satting 95% on 3 L, unremarkable labs and chest x-ray. Medications Administered Discontinued Medications Generic Name Dose Route Start Last Admin Trade Name Freq PRN Reason Stop Dose Admin Albuterol Sulfate 10 mg 01/24/23 16:59 01/24/23 17:08 Albuterol Sulfate (0.083%) 2.5 Mg/3 Ml Vial.Neb INHALE 01/24/23 17:00 10 mg ONCE ONE Administration Albuterol Sulfate 5 mg 01/24/23 17:09 01/24/23 18:25 Albuterol Sulfate (0.083%) 2.5 Mg/3 Ml Vial.Neb INHALE 01/24/23 17:10 Not Given ONCE ONE Albuterol/Ipratropium 3 ml 01/24/23 17:09 01/24/23 18:25 Albuterol/Iprat 2.5/0.5mg 3 Ml Ampul.Neb INHALE 01/24/23 17:10 Not Given ONCE ONE Magnesium Sulfate 2 gm in 50 mls @ 25 mls/hr 01/24/23 17:10 01/24/23 19:00 Magnesium Sulfate/H2o IV 01/24/23 19:09 Infused ONCE ONE Infusion Methylprednisolone Sodium Succinate 125 mg 01/24/23 17:09 01/24/23 18:41 Methylprednisolone Sod Succ 125 Mg/2 Ml Vial IVPUSH 01/24/23 17:10 125 mg ONCE ONE Administration Medical Decision Making Differential Diagnosis Differential Diagnoses: The differential diagnosis associated with the presentation includes (COPD exacerbation, pneumonia, pneumothorax, electrolyte abnormality, ACS, CHF, severe anemia.) Admission/Observation Consideration of admission/observation: Escalation of care including admission/observation considered Lab Data MDM Lab Attestation statement: I reviewed the patient's lab results. 01/24/23 17:51 01/24/23 17:51 Labs: Lab Results 01/24/23 01/24/23 01/24/23 Range/Units 17:51 17:51 17:51 WBC 10.1 (4.8-10.8) X10*3/uL RBC 4.28 (4.20-5.50) X10*6/uL Hgb 12.0 (12.0-16.0) g/dl Hct 38.1 (37.0-47.0) % MCV 89.0 (80.0-98.0) fL MCH 28.0 (27.0-33.0) pg MCHC 31.5 (31.0-35.0) g/dl RDW 13.1 (11.0-16.0) % Plt Count 215 (160-400) X10*3/uL MPV 11.9 (9.4-12.3) fL Immature Gran % (Auto) 0.3 (0.0-0.4) % Neut % (Auto) 53.8 (45-73) % Lymph % (Auto) 37.3 (20-40) % [place] % (Auto) 5.7 (2-11) % Eos % (Auto) 2.7 (0-4) % Baso % (Auto) 0.2 (0-2) % Lymph # (Auto) 3.8 (1.2-4.9) X10*3/uL [place] # (Auto) 0.6 (0.1-1.2) X10*3/uL Eos # (Auto) 0.3 (0.0-0.4) X10*3/uL Baso # (Auto) 0.0 (0.0-0.2) X10*3/uL Abs Immat Gran (auto) 0.03 (0.00-0.03) X10*3/uL Absolute Neuts (auto) 5.4 (2.0-8.3) x10*3/uL Absolute Nucleated RBC 0.000 (0.0-0.012) X10*3/uL Nucleated RBC % (auto) 0.0 (0.0-0.2) /100WBC VBG pH (7.32-7.43) VBG pCO2 mmHg VBG pO2 mmHg VBG HCO3 (22-26) mmol/L VBG O2 Saturation % VBG Base Excess mmol/L Sodium 141 (135-145) mmol/L Potassium 4.3 (3.3-5.1) mmol/L Chloride 101 (96-108) mmol/L Carbon Dioxide 28 (22-29) mmol/L Anion Gap 16 (12-20) BUN 21 H (9-16) mg/dL Creatinine 1.63 H (0.5-1.4) mg/dL Estim Creat Clear Calc 31.5 Estimated GFR 31 Random Glucose 230 H (60-115) mg/dL Lactic Acid 1.6 (0.5-2.0) mmol/L Calcium 9.5 (8.4-10.2) mg/dL Magnesium 1.8 (1.6-2.6) mg/dL Total Bilirubin 0.3 (0.0-1.0) mg/dL Direct Bilirubin 0.1 (0.0-0.5) mg/dL AST 19 (5-31) U/L ALT 21 (0-31) U/L Alkaline Phosphatase 45 (39-117) U/L Troponin I High Sens (<3.5-17.0) ng/L B-Natriuretic Peptide (<100) pg/mL Total Protein 7.0 (6.5-8.0) g/dL Albumin 3.9 (3.5-5.0) g/dL Procalcitonin 0.06 ng/mL Urine Color Urine Appearance Urine pH (5.0-9.0) Ur Specific [place] (1.005-1.025) Urine Protein (Neg-Trace) mg/dL Urine Glucose (UA) (Negative) mg/dL Urine Ketones (Negative) mg/dL Urine Blood (Negative) Urine Nitrite (Negative) Ur Leukocyte Esterase (Negative) Urine RBC (0-2) /HPF Urine WBC (0-5) /HPF Ur Squamous Epith Cells (0-2) /HPF Urine Bacteria (None Seen) Hyaline Casts (0-2) /LPF Respiratory Panel [place] Adenovirus (Rapid PCR) B.pert (TEM-PCR) B.parapertussis DNA PCR C. pneumoniae DNA (PCR) Coronavirus OC43 (PCR) Coronavirus HKU1 (PCR) Coronavirus 229E (PCR) Coronavirus NL63 (PCR) Human Metapneumovir PCR Influenza A (RT-PCR) Influenza B (RT-PCR) M. pneumoniae (PCR) Parainfluenza 1 (PCR) Parainfluenza 2 (PCR) Parainfluenza 3 (PCR) Parainfluenza 4 (PCR) RSV (PCR) Entero/Rhino (PCR) SARS-CoV-2 RNA (RT-PCR) 01/24/23 01/24/23 01/24/23 Range/Units 17:51 17:51 17:51 WBC (4.8-10.8) X10*3/uL RBC (4.20-5.50) X10*6/uL Hgb (12.0-16.0) g/dl Hct (37.0-47.0) % MCV (80.0-98.0) fL MCH (27.0-33.0) pg MCHC (31.0-35.0) g/dl RDW (11.0-16.0) % Plt Count (160-400) X10*3/uL MPV (9.4-12.3) fL Immature Gran % (Auto) (0.0-0.4) % Neut % (Auto) (45-73) % Lymph % (Auto) (20-40) % Bo[place] % (Auto) (2-11) % Eos % (Auto) (0-4) % Baso % (Auto) (0-2) % Lymph # (Auto) (1.2-4.9) X10*3/uL Bo[place] # (Auto) (0.1-1.2) X10*3/uL Eos # (Auto) (0.0-0.4) X10*3/uL Baso # (Auto) (0.0-0.2) X10*3/uL Abs Immat Gran (auto) (0.00-0.03) X10*3/uL Absolute Neuts (auto) (2.0-8.3) x10*3/uL Absolute Nucleated RBC (0.0-0.012) X10*3/uL Nucleated RBC % (auto) (0.0-0.2) /100WBC VBG pH (7.32-7.43) VBG pCO2 mmHg VBG pO2 mmHg VBG HCO3 (22-26) mmol/L VBG O2 Saturation % VBG Base Excess mmol/L Sodium (135-145) mmol/L Potassium (3.3-5.1) mmol/L Chloride (96-108) mmol/L Carbon Dioxide (22-29) mmol/L Anion Gap (12-20) BUN (9-16) mg/dL Creatinine (0.5-1.4) mg/dL Estim Creat Clear Calc Estimated GFR Random Glucose (60-115) mg/dL Lactic Acid (0.5-2.0) mmol/L Calcium (8.4-10.2) mg/dL Magnesium (1.6-2.6) mg/dL Total Bilirubin (0.0-1.0) mg/dL Direct Bilirubin (0.0-0.5) mg/dL AST (5-31) U/L ALT (0-31) U/L Alkaline Phosphatase (39-117) U/L Troponin I High Sens < 2.7 (<3.5-17.0) ng/L B-Natriuretic Peptide 29 (<100) pg/mL Total Protein (6.5-8.0) g/dL Albumin (3.5-5.0) g/dL Procalcitonin ng/mL Urine Color Urine Appearance Urine pH (5.0-9.0) Ur Specific [place] (1.005-1.025) Urine Protein (Neg-Trace) mg/dL Urine Glucose (UA) (Negative) mg/dL Urine Ketones (Negative) mg/dL Urine Blood (Negative) Urine Nitrite (Negative) Ur Leukocyte Esterase (Negative) Urine RBC (0-2) /HPF Urine WBC (0-5) /HPF Ur Squamous Epith Cells (0-2) /HPF Urine Bacteria (None Seen) Hyaline Casts (0-2) /LPF Respiratory Panel [place] Cancelled Adenovirus (Rapid PCR) Cancelled B.pert (TEM-PCR) Cancelled B.parapertussis DNA PCR Cancelled C. pneumoniae DNA (PCR) Cancelled Coronavirus OC43 (PCR) Cancelled Coronavirus HKU1 (PCR) Cancelled Coronavirus 229E (PCR) Cancelled Coronavirus NL63 (PCR) Cancelled Human Metapneumovir PCR Cancelled Influenza A (RT-PCR) Cancelled Influenza B (RT-PCR) Cancelled M. pneumoniae (PCR) Cancelled Parainfluenza 1 (PCR) Cancelled Parainfluenza 2 (PCR) Cancelled Parainfluenza 3 (PCR) Cancelled Parainfluenza 4 (PCR) Cancelled RSV (PCR) Cancelled Entero/Rhino (PCR) Cancelled SARS-CoV-2 RNA (RT-PCR) Cancelled 01/24/23 01/24/23 Range/Units 17:54 17:59 WBC (4.8-10.8) X10*3/uL RBC (4.20-5.50) X10*6/uL Hgb (12.0-16.0) g/dl Hct (37.0-47.0) % MCV (80.0-98.0) fL MCH (27.0-33.0) pg MCHC (31.0-35.0) g/dl RDW (11.0-16.0) % Plt Count (160-400) X10*3/uL MPV (9.4-12.3) fL Immature Gran % (Auto) (0.0-0.4) % Neut % (Auto) (45-73) % Lymph % (Auto) (20-40) % [place] % (Auto) (2-11) % Eos % (Auto) (0-4) % Baso % (Auto) (0-2) % Lymph # (Auto) (1.2-4.9) X10*3/uL [place] # (Auto) (0.1-1.2) X10*3/uL Eos # (Auto) (0.0-0.4) X10*3/uL Baso # (Auto) (0.0-0.2) X10*3/uL Abs Immat Gran (auto) (0.00-0.03) X10*3/uL Absolute Neuts (auto) (2.0-8.3) x10*3/uL Absolute Nucleated RBC (0.0-0.012) X10*3/uL Nucleated RBC % (auto) (0.0-0.2) /100WBC VBG pH 7.45 H (7.32-7.43) VBG pCO2 52 mmHg VBG pO2 56 mmHg VBG HCO3 36 H (22-26) mmol/L VBG O2 Saturation 89.0 % VBG Base Excess 10.6 mmol/L Sodium (135-145) mmol/L Potassium (3.3-5.1) mmol/L Chloride (96-108) mmol/L Carbon Dioxide (22-29) mmol/L Anion Gap (12-20) BUN (9-16) mg/dL Creatinine (0.5-1.4) mg/dL Estim Creat Clear Calc Estimated GFR Random Glucose (60-115) mg/dL Lactic Acid (0.5-2.0) mmol/L Calcium (8.4-10.2) mg/dL Magnesium (1.6-2.6) mg/dL Total Bilirubin (0.0-1.0) mg/dL Direct Bilirubin (0.0-0.5) mg/dL AST (5-31) U/L ALT (0-31) U/L Alkaline Phosphatase (39-117) U/L Troponin I High Sens (<3.5-17.0) ng/L B-Natriuretic Peptide (<100) pg/mL Total Protein (6.5-8.0) g/dL Albumin (3.5-5.0) g/dL Procalcitonin ng/mL Urine Color Yellow Urine Appearance Clear Urine pH 5.5 (5.0-9.0) Ur Specific [place] 1.015 (1.005-1.025) Urine Protein Negative (Neg-Trace) mg/dL Urine Glucose (UA) 250 H (Negative) mg/dL Urine Ketones Negative (Negative) mg/dL Urine Blood Negative (Negative) Urine Nitrite Negative (Negative) Ur Leukocyte Esterase Small (1+) H (Negative) Urine RBC 0-2 (0-2) /HPF Urine WBC 6-10 H (0-5) /HPF Ur Squamous Epith Cells 0-2 (0-2) /HPF Urine Bacteria 4+ (None Seen) Hyaline Casts 0-2 (0-2) /LPF Respiratory Panel [place] Adenovirus (Rapid PCR) B.pert (TEM-PCR) B.parapertussis DNA PCR C. pneumoniae DNA (PCR) Coronavirus OC43 (PCR) Coronavirus HKU1 (PCR) Coronavirus 229E (PCR) Coronavirus NL63 (PCR) Human Metapneumovir PCR Influenza A (RT-PCR) Influenza B (RT-PCR) M. pneumoniae (PCR) Parainfluenza 1 (PCR) Parainfluenza 2 (PCR) Parainfluenza 3 (PCR) Parainfluenza 4 (PCR) RSV (PCR) Entero/Rhino (PCR) SARS-CoV-2 RNA (RT-PCR) Independent Interpretation I performed an independent interpretation of an: Plain X-Ray (Chest: No acute intrathoracic pathology) Radiology Impression Discussion of test interpretation with radiology: I have reviewed the radiologist's reading. Chronic Conditions Patient?s care impacted by: Other (COPD) Discharge Plan Discharge Clinical Impression: Acute exacerbation of chronic obstructive pulmonary disease (COPD) Patient Disposition: Home, Self-Care Instructions: COPD (Chronic Obstructive Pulmonary Disease) (ED) Additional Instructions: Follow-up with your PCP/photo checker. Return to the emergency department if worsening of your breathing. Use supplemental oxygen as directed. Prescriptions: New albuterol sulfate 90 mcg/actuation aerosol powdr breath activated 1 inh inhalation Q4-6H PRN (Reason: shortness of breath or wheezing) Qty: 1 0RF albuterol sulfate 2.5 mg /3 mL (0.083 %) solution for nebulization 2.5 mg inhalation Q4-6H PRN (Reason: shortness of breath or wheezing) Qty: 75 0RF prednisone 20 mg tablet 20 mg PO BID Qty: 10 0RF doxycycline hyclate 100 mg tablet 100 mg PO BID Qty: 14 0RF No Action (DME) lancets 28 gauge misc See Rx Instructions topical TID Qty: 100 3RF Rx Instructions: once a day (DME) FreeStyle Lite Strips Strip See Rx Instructions .Route Rx Instructions: Use to check blood sugar twice daily and when having symptoms of hypo/hyperglycemia bisacodyl [Dulcolax (bisacodyl)] 5 mg tablet,delayed release (DR/EC) 10 mg PO ONCE 1 Days Qty: 2 0RF Rx Instructions: take orally as directed prior to colonoscopy polyethylene glycol 3350 [Miralax] 17 gram/dose powder 238 g PO ONCE 1 Days Qty: 238 0RF Rx Instructions: take orally as directed prior to colonoscopy docusate sodium [Colace] 100 mg capsule 100 mg PO BID Qty: 60 2RF albuterol sulfate 1.25 mg/3 mL solution for nebulization 1.25 mg inhalation Q4-6H PRN (Reason: shortness of breath or wheezing) Qty: 150 2RF (DME) diaper,brief,adult,disposable Misc See Rx Instructions .Route Qty: 64 5RF Rx Instructions: Use for stress incontinence albuterol sulfate [ProAir HFA] 90 mcg/actuation HFA aerosol inhaler 2 puff inhalation Q4-6H PRN (Reason: shortness of breath or wheezing) 30 Days Qty: 8.5 2RF ipratropium-albuterol 0.5 mg-3 mg(2.5 mg base)/3 mL solution for nebulization 3 ml inhalation Q6H PRN (Reason: wheezing, copd) 30 Days Qty: 180 3RF ropinirole 2 mg tablet 2 mg PO BID 90 Days Qty: 180 1RF (DME) pen needle, diabetic 31 gauge x 3/16 needle See Rx Instructions subcut TID Qty: 100 1RF Rx Instructions: As directed (DME) OneTouch Ultra Test Strip See Rx Instructions .Route Qty: 100 2RF Rx Instructions: Use to check blood sugar twice daily and when having symptoms of hypo/hyperglycemia (DME) lancets [EXPO CommunicationsTouch Delica Lancets] 30 gauge misc See Rx Instructions .Route Qty: 100 2RF Rx Instructions: Use to check blood sugar twice daily and when having symptoms of hypo/hyperglycemia (DME) blood-glucose meter [[employer]Touch Ultra2 Meter] Misc See Rx Instructions .Route Qty: 1 0RF Rx Instructions: Use to check blood sugar twice daily and when having symptoms of hypo/hyperglycemia ondansetron 4 mg tablet,disintegrating 4 mg PO ONCE PRN (Reason: nausea and vomiting) 30 Days Qty: 30 0RF montelukast 10 mg tablet 10 mg PO DAILY Qty: 90 1RF lisinopril 5 mg tablet 5 mg PO DAILY Qty: 90 0RF Hold Instructions: Resume on 12/10/21. (DME) pen needle, diabetic [BD Ultra-Fine Mini Pen Needle] 31 gauge x 3/16 needle See Rx Instructions .Route Qty: 100 2RF Rx Instructions: Use to administer insulin twice daily amlodipine [Norvasc] 5 mg tablet 5 mg PO DAILY 30 Days Qty: 90 0RF Levemir FlexTouch U100 Insulin 100 unit/mL (3 mL) insulin pen 20 unit subcut DAILY 90 Days Qty: 18 3RF fluticasone furoate-vilanterol [Breo Ellipta] 200-25 mcg/dose blister with device 1 inh inhalation DAILY 30 Days Qty: 60 4RF atorvastatin 80 mg tablet 80 mg PO DAILY 90 Days Qty: 90 0RF insulin aspart U-100 [Novolog FlexPen U-100 Insulin] 100 unit/mL (3 mL) insulin pen 10 unit subcut TID Qty: 15 0RF estradiol 0.01 % (0.1 mg/gram) cream See Rx Instructions vaginal 3XW Qty: 42.5 3RF Rx Instructions: vaginally 3 times a week; pea sized amount to urethra 3 times a week (DME) AeroEclipse II Nebulizer Misc See Rx Instructions .ROUTE .MEDSUPPLY Qty: 1 0RF Rx Instructions: As directed gabapentin 300 mg capsule 300 mg PO DAILY hydroxyzine pamoate 25 mg capsule 25 mg PO BEDTIME trazodone 100 mg tablet 200 mg PO BEDTIME aspirin 81 mg Tablet,Chewable 81 mg PO DAILY cholecalciferol (vitamin D3) 25 mcg (1,000 unit) Capsule 25 mcg PO DAILY gabapentin 300 mg capsule 900 mg PO BEDTIME Rx Instructions: pt takes 1 300mg in am and pm and 3 and bedtime (DME) adult diapers large large See Rx Instructions .Route .MEDSUPPLY Qty: 100 6RF Rx Instructions: twice a day nitrofurantoin monohyd/m-cryst [Macrobid] 100 mg capsule 100 mg PO BID 7 Days Qty: 14 0RF Rx Instructions: must administer with a meal/food bupropion HCl 150 mg tablet extended release 24 hr 150 mg PO DAILY (DME) oxygen-air delivery systems Device See Rx Instructions .ROUTE .MEDSUPPLY Qty: 1 Rx Instructions: As directed ropinirole 4 mg tablet 4 mg PO BID pramipexole 0.5 mg tablet 0.5 mg PO BID tolterodine 2 mg capsule,extended release 24hr 2 mg PO DAILY 90 Days Qty: 90 3RF Interventions: ED Discharge Assessment Last Done: 01/24/23 21:13 Discharge Date/Time: 01/24/23 21:14
[2023-01-24 16:54] VITALS: BP 95/74; PULSE 96; RESP 24; TEMP 36.8; O2SAT 98; BMI 40.4
--- NOTE | 2023-01-24 16:57 | ECG_ITS ---
Test Reason : SOB Blood Pressure : / mmHG Vent. Rate : 088 BPM Atrial Rate : 088 BPM P-R Int : 162 ms QRS Dur : 080 ms QT Int : 368 ms P-R-T Axes : 044 018 035 degrees QTc Int : 445 ms Normal sinus rhythm Normal ECG When compared with ECG of 13-OCT-2022 10:59, No significant change was found Referred By: Joslyn Qiu Electronically Signed By:RAMSEY ZARATE MD
--- NOTE | 2023-01-24 17:06 | MHC.EDTECH ---
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
[2023-01-24] MEDS: Albuterol Sulfate (0.083%) 2.5 MG/3 ML VIAL.NEB 10 MG INHALE (17:08)
[2023-01-24 17:55] VITALS: BP 141/51; PULSE 85; RESP 18; TEMP 37; O2SAT 97
[2023-01-24 17:57] LABS: MANUAL DIFF FLAG NO
--- NOTE | 2023-01-24 17:59 | MHC.EDTECH ---
PATIENT EKG DONE AND WAS READ BY PROVIDER ,1SET BLOOD CULTURE ,LACTIC ACID ,BMP ,CBC ,BNP ,ESTEBAN BLOOD GAS ,DRAWN , RESP PANEL AND URINE SAMPLE COLLECTED AND SENT TO LAB ,VITALS SIGN TAKEN ,PT IS WATCHING TELEVISION ,PATIENT SON IN ROOM .
[2023-01-24 18:02] LABS: VBG Base Excess 10.6 mmol/L; VBG HCO3 36 mmol/L (22-26); VBG pCO2 52 mmHg; VBG pH 7.45 (7.32-7.43); VBG pO2 56 mmHg
[2023-01-24 18:03] LABS: Venous Blood Gas Refer to POC result
[2023-01-24 18:05] LABS: Basophils Percent Auto 0.2 % (0-2); Eosinophils Absolute Auto 0.3 X10*3/uL (0.0-0.4); Eosinophils Percent Auto 2.7 % (0-4); Hematocrit 38.1 % (37.0-47.0); Imm Gran Abs Auto 0.03 X10*3/uL (0.00-0.03); Imm Gran Pct Auto 0.3 % (0.0-0.4); Lymphocytes Absolute Auto 3.8 X10*3/uL (1.2-4.9); Lymphocytes Percent Auto 37.3 % (20-40); Mean Corpuscular HGB Conc 31.5 g/dl (31.0-35.0); Mean Platelet Volume 11.9 fL (9.4-12.3); Monocytes Absolute Auto 0.6 X10*3/uL (0.1-1.2); Monocytes Percent Auto 5.7 % (2-11); Neutrophils Absolute Auto 5.4 x10*3/uL (2.0-8.3); Neutrophils Percent Auto 53.8 % (45-73); Platelet Count 215 X10*3/uL (160-400); Red Blood Count 4.28 X10*6/uL (4.20-5.50); Red Cell Distribution Width 13.1 % (11.0-16.0); White Blood Count 10.1 X10*3/uL (4.8-10.8)
[2023-01-24 18:08] LABS: Lactic Acid 1.6 mmol/L (0.5-2.0)
[2023-01-24 18:18] LABS: B Type Natriuretic Peptide 29 pg/mL (<100)
[2023-01-24 18:19] LABS: Alanine Aminotransferase 21 U/L (0-31); Albumin Level 3.9 g/dL (3.5-5.0); Alkaline Phosphatase 45 U/L (39-117); Anion Gap 16 (12-20); Aspartate Amino Transferase 19 U/L (5-31); Bilirubin Direct 0.1 mg/dL (0.0-0.5); Bilirubin Total 0.3 mg/dL (0.0-1.0); Blood Urea Nitrogen 21 mg/dL (9-16); Calcium 9.5 mg/dL (8.4-10.2); Carbon Dioxide 28 mmol/L (22-29); Chloride 101 mmol/L (96-108); Creatinine Clr Calc Pharmacy 31.5; Estimated Glomerular Filt Rate 31; Glucose Random 230 mg/dL (60-115); Magnesium 1.8 mg/dL (1.6-2.6); Potassium 4.3 mmol/L (3.3-5.1); Sodium 141 mmol/L (135-145)
[2023-01-24 18:28] LABS: Troponin-I High Sensitivity < 2.7 ng/L (<3.5-17.0)
[2023-01-24 18:33] LABS: Procalcitonin 0.06 ng/mL
[2023-01-24] MEDS: methylPREDNISolone Sod Succ 125 MG/2 ML VIAL IVPUSH (18:41)
[2023-01-24] MEDS: Magnesium Sulfate/H2O 2 GM/50 ML PIGGYBACK IV (18:43)
[2023-01-24 18:49] LABS: Appearance Urine Clear; Color Urine Yellow; Glucose Urine UA 250 mg/dL (Negative); Leukocyte Esterase Urine Small (1+) (Negative); Nitrite Urine Negative (Negative); PH 5.5 (5.0-9.0); Specific Gravity - Urine 1.015 (1.005-1.025); UMIC TRIGGER UACC YES; Urine Blood Negative (Negative); Urine Ketones Negative (Negative); Urine Protein Negative (Neg-Trace)
[2023-01-24 18:54] LABS: Bacteria Urine 4+ (None Seen); Hyaline Casts Urine 0-2 /LPF (0-2); RBC Urine 0-2 /HPF (0-2); Squamous Epithelial Cell Urine 0-2 /HPF (0-2); UACC Culture Trigger YES
[2023-01-24 20:24] VITALS: BP 125/40; PULSE 83; RESP 16; TEMP 36.8; O2SAT 95
== END 2023-01-24 21:14 | disposition home or self-care (01) ==
PROVIDERS: Physician Assistant; Emergency Provider Emergency Medicine
DX: J44.1 Chronic obstructive pulmonary disease with (acute) exacerbation (principal); N39.0 Urinary tract infection, site not specified; B96.89 Other specified bacterial agents as the cause of diseases classified elsewhere; R06.02 Shortness of breath; E10.22 Type 1 diabetes mellitus with diabetic chronic kidney disease; I12.9 Hypertensive chronic kidney disease with stage 1 through stage 4 chronic kidney disease, or unspecified chronic kidney disease; N18.30 Chronic kidney disease, stage 3 unspecified; E78.5 Hyperlipidemia, unspecified; E66.9 Obesity, unspecified; Z68.41 Body mass index [BMI] 40.0-44.9, adult; Z87.440 Personal history of urinary (tract) infections; Z99.81 Dependence on supplemental oxygen; Z79.4 Long term (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 insulin
CPT/HCPCS: 36415; 71045; 80048; 80076; 81001; 82803; 83605; 83735; 83880; 84145; 84484; 85025; 87040; 87086; 87088; 87186; 87633; 93005; 94640; 96374; 96375; 99285; J2930; J3475

== ENCOUNTER → 2023-01-24 16:57 | Outpatient (BNV) | payer OTHER, SELFPAY | PROVIDERS: Emergency Provider Emergency Medicine; Visit Provider Internal Medicine Cardiovascular Disease | DX: R06.02 Shortness of breath (principal) | CPT/HCPCS: 93010 ==

== ENCOUNTER 2023-02-18 11:48 | Outpatient (AMB) | payer OTHER, SELFPAY ==
[2023-02-18 11:48] VITALS: BP 142/64; PULSE 115; O2SAT 95; BMI 42.4
--- NOTE | 2023-02-18 11:48 | A.OFFPC_ITS ---
Vital Signs 02/18/23 11:48 Height 5 ft Weight 217 lb BMI 42.4 BP 142/64 H Blood Pressure Location Lt brachial Position Sitting Pulse 115 H Pulse Source Pulse Oximeter Pulse Oximetry (%) 95 Oxygen Delivery Method Room Air Intake Visit Reasons: PE Intake Note: Pt is here today for PE.Pt states that she has a question about Amlodipine as she has not been taking it. Allergies adhesive tape [ADHESIVE TAPE] Allergy (Intermediate, Verified 02/18/23 11:58) RASH trimethobenzamide [From TIGAN] Allergy (Mild, Verified 02/18/23 11:58) NAUSEA environmental Allergy (Intermediate, Uncoded 02/18/23 11:58) Nasal congestion Medication List - Last Reconciled 02/18/23 by Shelbi Perez MD [adult diapers large twice a day] albuterol sulfate 90 mcg/actuation 1 inh inhalation Q4-6H PRN albuterol sulfate 2.5 mg (3 mL) inhalation Q4-6H PRN albuterol sulfate 1.25 mg (3 mL) inhalation Q4-6H PRN albuterol sulfate 90 mcg/actuation (ProAir HFA) 2 puffs inhalation Q4-6H PRN 30 days amlodipine (Norvasc) 5 mg PO DAILY 30 days aspirin 81 mg PO DAILY atorvastatin 80 mg PO DAILY 90 days bisacodyl (Dulcolax (bisacodyl)) 10 mg (2 x 5 mg) PO ONCE 1 day blood sugar diagnostic (FreeStyle Lite Strips) Use to check blood sugar twice daily and when having symptoms of hypo/hyperglycemia blood sugar diagnostic (OneTouch Ultra Test strips) Use to check blood sugar twi ce daily and when having symptoms of hypo/hyperglycemia blood-glucose meter (OneTouch Ultra2 Meter) Use to check blood sugar twice daily and when having symptoms of hypo/hyperglycemia bupropion HCl 150 mg PO DAILY cefdinir 300 mg PO BID 7 days cholecalciferol (vitamin D3) 25 mcg PO DAILY diaper,brief,adult,disposable Use for stress incontinence docusate sodium (Colace) 100 mg PO BID doxycycline hyclate 100 mg PO BID estradiol 0.01%(0.1mg/gram) vaginally 3 times a week; pea sized amount to urethra 3 times a week fluticasone furoate-vilanterol 200-25 mcg/dose (Breo Ellipta) 1 inh inhalation DAILY 30 days gabapentin 300 mg PO DAILY gabapentin 900 mg PO BEDTIME hydroxyzine pamoate 25 mg PO BEDTIME insulin aspart U-100 (Novolog FlexPen U-100 Insulin aspart) 10 units (0.1 mL) subcut TID insulin detemir U-100 (Levemir FlexTouch U-100 Insulin) 20 units (0.2 mL) subcut DAILY 90 days ipratropium-albuterol 0.5 mg-3 mg(2.5 mg base)/3 mL 3 mL inhalation Q6H PRN 30 days lancets once a day lancets (Eddy LabsTouch Delica Lancets) Use to check blood sugar twice daily and when having symptoms of hypo/hyperglycemia lisinopril 5 mg PO DAILY montelukast 10 mg PO DAILY nebulizers (AeroEclipse II Nebulizer) As directed ondansetron 4 mg PO ONCE PRN 30 days oxygen-air delivery systems As directed pen needle, diabetic As directed pen needle, diabetic (BD Ultra-Fine Mini Pen Needle) Use to administer insulin t wice daily polyethylene glycol 3350 (Miralax) 238 grams PO ONCE 1 day pramipexole 0.5 mg PO BID ropinirole 2 mg PO BID 90 days ropinirole 4 mg PO BID tolterodine ER 2 mg PO DAILY 90 days trazodone 200 mg PO BEDTIME Tobacco use date assessed: 02/18/23 Fall risk assessment: 2 + Falls in past year Last assessed Fall Risk: 02/18/23 Dental Screening Dental Screen Date: 02/18/23 Did you have a dental visit in the last 12 months?: Yes Did you have a dental problem in the last 6 months where you did not have access to dental care?: No Was dental information given to patient?: Patient has dentist HPI PE HPI Details Physical exam appointment Mammogram was November of this year Colonoscopy was October of [address] Aceves Patient have a history of hysterectomy secondary to fibroid Blood pressure is 142/64 as she stop taking amlodipine but continued to take lisinopril Patient is seeing a swimming pool service technician for chronic kidney disease. Creatinine is stable Other provided patient is seeing are Dr. Amos for restless leg syndrome Psychiatrist Dr. Mccray [facility] Dr. 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 Labs were done in January a new set of labs is needed in 3 months before visit. [facility] Medical History Allergic rhinitis Anemia Arthritis CKD (chronic kidney disease) Constipation due to opioid therapy COPD (chronic obstructive pulmonary disease) COPD exacerbation CPAP (continuous positive airway pressure) dependence Diabetes Elevated cholesterol GERD (gastroesophageal reflux disease) History of adrenal adenoma History of diverticulitis History of restless legs syndrome Hx SBO Hyperlipidemia Hypoxemia Morbid obesity Obesity (BMI 30-39.9) ALDO (obstructive sleep apnea) Osteoarthritis of left knee Osteochondroma of left femur Respiratory failure with hypoxia Urinary tract infection Surgical History H/O colonoscopy H/O excision of mass H/O exploratory laparotomy History of appendectomy History of arthroscopy of left knee History of cholecystectomy History of hysterectomy History of oophorectomy History of partial colectomy History of surgery Hx of cataract extraction Family History Father HTN (hypertension) Diabetes mellitus Mother HTN (hypertension) Liver cancer Social History 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: Other 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 Other:: EX Housing: Apartment Are you a primary rn urgent care to a significant other at home: No Do you presently have visiting nurse or other home services: No Alcohol intake: never Patient Tobacco Use Status: Never used Tobacco e-Cigarette/Vaping Use: Never Used Second Hand Smoke Exposure: No Advance Directives Date on File: 07/08/21 service: No Current occupational status: retired Cognitive needs: No Hearing needs: No Vision needs: No Questionnaire PHQ-9 Over the last 2 weeks, how often have you been bothered by any of the following problems? 1. Little interest or pleasure in doing things: several days 2. Feeling down, depressed, or hopeless: several days 3. Trouble falling or staying asleep, or sleeping too much: several days 4. Feeling tired or having little energy: nearly every day 5. Poor appetite or overeating: nearly every day 6. Feeling bad about yourself - or that you are a failure or have let yourself or your family down: not at all 7. Trouble concentrating on things, such as reading the newspaper or watching television: not at all 8. Moving or speaking so slowly that other people could have noticed. Or the opposite - being so fidgety or restless that you have been moving around a lot more than usual: not at all 9. Thoughts that you would be better off or of hurting yourself in some way: not at all Total score: 9 Depression Screening Interpretation: Positive 71715 - PHQ-9 Billing: Yes Source: Developed by Drs. Ellis Child, Nimo Castillo, Miguel East and colleagues, with an educational miki from [employer]. Thrive Questionnaire Date Thrive assessed: 02/18/23 I am a: Patient What is your living situation today?: I have a steady place to live Within the past 12 months, did the food you bought not last and you didn't have the money to get more?: Never true Within the past 12 months, did you worry whether your food would run out before you got money to buy more?: Never true Do you have trouble paying for medicines?: No Do you have trouble getting transportation to medical appointments?: No Do you have trouble paying your heating and electricity bill?: No Do you have trouble taking care of your child, family member or friend?: No Do you have trouble with day-to-day activities such as bathing, preparing meals, shopping, managing finances, etc.?: No Are you currently unemployed and looking for a job?: No Are you interested in more education?: No Please select the resources that you would like help with: None Currently or been in a relationship where the following occur: no concerns reported AUDIT C Alcohol Use Questionnaire (AUDIT-C) 1. How often do you have a drink containing alcohol?: Never 3. How often do you have six or more drinks on one occasion?: Never Total Score: 0 RACHNA-7 AMB Questionnaire RACHNA-7 Date RACHNA - 7 assessed: 02/18/23 Feeling nervous, anxious, or on edge: 0 = Not at all Not being able to stop or control worryin = Not at all Worrying too much about different things: 0 = Not at all Trouble relaxin = Not at all Being so restless that it is hard to sit still: 0 = Not at all Becoming easily annoyed or irritable: 0 = Not at all Feeling afraid as if something awful might happen: 0 = Not at all Total RACHNA-7 score (0-4 normal; 5-9 mild; 10-14 moderate; 15-21 severe): 0 Source: Developed by Drs. Ellis Child, Nimo Castillo, Miguel East and colleagues, with an educational miki from [employer]. Review of Systems Const Denies chills and Denies fever(s) ENT Denies epistaxis and Denies nasal discharge Card Denies chest pain Resp Denies chest congestion, Denies cough and Denies hemoptysis GI Denies nausea Skin/Breast Denies rash Neuro Reports no additional complaints Psych Reports no additional complaints Endo Reports no additional complaints Physical exam (Primary Care) Vital Signs: Last Vital Signs Pulse 115 H 02/18/23 11:48 BP 142/64 H 02/18/23 11:48 Pulse Ox 95 02/18/23 11:48 Oxygen Delivery Method Room Air 02/18/23 11:48 BMI result Body Mass Index 42.4 Tobacco/Smoking Status: Tobacco use Status Tobacco use date assessed 02/18/23 02/18/23 12:03 Patient Tobacco Use Status Never used Tobacco 02/18/23 12:03 e-Cigarette/Vaping Use Never Used 02/18/23 11:53 PHQ-9: PHQ-9 Score PHQ-9: Total score 9 02/18/23 12:31 Depression Screening Interpretation: Positive Thrive Assessment: Date of Thrive Assessment Date Thrive assessed 02/18/23 02/18/23 12:03 Currently or been in a relationship where the following occur: no concerns reported Const General: cooperative, comfortable and no acute distress Orientation/consciousness: patient oriented x3 HENMT Head: Yes normocephalic Eyes General: appearance normal, both eyes and all related structures Neck Neck: Yes supple Resp Effort & Inspection: normal respiratory effort, no cough and no stridor Cardio Rhythm: regular rhythm Heart sounds: S1 normal heart sound present and S2 normal heart sound present Skin General skin exam: turgor normal Neuro Other: Walk with the help of walker General: patient oriented x3, tone normal and moves all extremities Assessment and Plan Assessment & Plan (1) Encounter for general adult medical examination with abnormal findings: Code(s): Z00.01 - Encounter for general adult medical examination with abnormal findings (2) Diabetes 1.5, managed as type 1: Code(s): E13.9 - Other specified diabetes mellitus without complications (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: Code(s): Z79.4 - 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 (4) Diabetic neuropathy, painful: Code(s): E11.40 - Type 2 diabetes mellitus with diabetic neuropathy, unspecified (5) Lipid disorder: Code(s): E78.9 - Disorder of lipoprotein metabolism, unspecified (6) Restless leg syndrome: Code(s): G25.81 - Restless legs syndrome (7) Environmental allergies: Code(s): Z91.09 - Other allergy status, other than to drugs and biological substances (8) Depression, major, recurrent: Code(s): F33.9 - Major depressive disorder, recurrent, unspecified (9) Anxiety, generalized: Code(s): F41.1 - Generalized anxiety disorder Plan Physical exam appointment Mammogram was November of this year Colonoscopy was October of [address] Aceves Patient have a history of hysterectomy secondary to fibroid Blood pressure is 142/64 as she stop taking amlodipine but continued to take lisinopril Patient is seeing a swimming pool service technician for chronic kidney disease. Creatinine is stable Other provided patient is seeing are Dr. Amos for restless leg syndrome Psychiatrist Dr. Mccray [facility] Dr. 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 Labs were done in January a new set of labs is needed in 3 months before visit. Orders: Orders Comprehensive Met. 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, Z91.09 - Other allergy status, other than to drugs and biological substances Hemoglobin A1c Today E11.40 - Type 2 diabetes mellitus with diabetic neuropathy, unspecified, E13.9 - Other specified diabetes mellitus without complications, E78.9 - Disorder of lipoprotein metabolism, unspecified, F33.9 - Major depressive disorder, recurrent, unspecified, F41.1 - Generalized anxiety disorder, G25.81 - Restless legs syndrome, Z00.01 - Encounter for general adult medical examination with abnormal findings, Z79.4 - senior care (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 insulin, Z91.09 - Other allergy status, other than to drugs and biological substances LDL Cholesterol Direct Today E11.40 - Type 2 diabetes mellitus with diabetic neuropathy, unspecified, E13.9 - Other specified diabetes mellitus without complications, E78.9 - Disorder of lipoprotein metabolism, unspecified, F33.9 - Major depressive disorder, recurrent, unspecified, F41.1 - Generalized anxiety disorder, G25.81 - Restless legs syndrome, Z00.01 - Encounter for general adult medical examination with abnormal findings, Z79.4 - senior care (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 insulin, Z91.09 - Other allergy status, other than to drugs and biological substances Complete Blood Count Auto Diff Today E11.40 - Type 2 diabetes mellitus with diabetic neuropathy, unspecified, E13.9 - Other specified diabetes mellitus without complications, E78.9 - Disorder of lipoprotein metabolism, unspecified, F33.9 - Major depressive disorder, recurrent, unspecified, F41.1 - Generalized anxiety disorder, G25.81 - Restless legs syndrome, Z00.01 - Encounter for general adult medical examination with abnormal findings, Z79.4 - 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, Z91.09 - Other allergy status, other than to drugs and biological substances Referrals Podiatry Referral E13.9 - Other specified diabetes mellitus without complications Medications: Changed From pen needle, diabetic As directed 100 ea 1RF E13.9 - Other specified diabetes mellitus without complications To pen needle, diabetic 4x a day 1,200 ea 1RF E13.9 - Other specified diabetes mellitus without complications Discontinued cefdinir Discontinued Reason: Patient Completed Course 300 mg PO BID 7 days 14 caps 0RF doxycycline hyclate Discontinued Reason: Patient Completed Course 100 mg PO BID 14 tabs 0RF Coding Level of Care Code Est Pt Prev Care >65y(46317) Diagnoses Encounter for general adult medical examination with abnormal findings Z00.01 Diabetes 1.5, managed as type 1 E13.9 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
== END 2023-02-18 12:31 | disposition home or self-care (01) ==
PROVIDERS: Visit Provider Internal Medicine
DX: Z00.01 Encounter for general adult medical examination with abnormal findings (principal); E11.40 Type 2 diabetes mellitus with diabetic neuropathy, unspecified; Z79.4 Long term (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 insulin; F33.9 Major depressive disorder, recurrent, unspecified; E78.9 Disorder of lipoprotein metabolism, unspecified; G25.81 Restless legs syndrome; Z91.09 Other allergy status, other than to drugs and biological substances; F41.1 Generalized anxiety disorder
CPT/HCPCS: 99397

== ENCOUNTER 2023-03-18 11:04 | Outpatient (AMB) | payer OTHER, SELFPAY ==
[2023-03-18 11:11] VITALS: BP 110/60; PULSE 109; O2SAT 92; BMI 43.0
--- NOTE | 2023-03-18 11:11 | MHC.OFFVIS ---
Intake Vital Signs 03/18/23 11:11 Height 5 ft Weight 220 lb BMI 43.0 BP 110/60 Blood Pressure Location Lt brachial Position Sitting Pulse 109 H Pulse Source Pulse Oximeter Pulse Oximetry (%) 92 Oxygen Delivery Method Room Air Intake Visit Reasons: COPD Intake Note: pt is here for follow up and states she still does not have portable oxygen due to a battery issue, [facility] is DME, pt had ER visit about a month ago, here at was put on prednisone Pricing Clerk Required: No Allergies adhesive tape [ADHESIVE TAPE] Allergy (Intermediate, Verified 03/18/23 11:15) RASH trimethobenzamide [From TIGAN] Allergy (Mild, Verified 03/18/23 11:15) NAUSEA environmental Allergy (Intermediate, Uncoded 03/18/23 11:15) Nasal congestion Medication List - Last Reconciled 03/18/23 by Hong Frederick MD [adult diapers large twice a day] albuterol sulfate 90 mcg/actuation 1 inh inhalation Q4-6H PRN albuterol sulfate 2.5 mg (3 mL) inhalation Q4-6H PRN albuterol sulfate 1.25 mg (3 mL) inhalation Q4-6H PRN albuterol sulfate 90 mcg/actuation (ProAir HFA) 2 puffs inhalation Q4-6H PRN 30 days amlodipine (Norvasc) 5 mg PO DAILY 30 days aspirin 81 mg PO DAILY atorvastatin 80 mg PO DAILY 90 days bisacodyl (Dulcolax (bisacodyl)) 10 mg (2 x 5 mg) PO ONCE 1 day blood sugar diagnostic (FreeStyle Lite Strips) Use to check blood sugar twice daily and when having symptoms of hypo/hyperglycemia blood sugar diagnostic (OneTouch Ultra Test strips) Use to check blood sugar twice daily and when having symptoms of hypo/hyperglycemia blood-glucose meter (OneTouch Ultra2 Meter) Use to check blood sugar twice daily and when having symptoms of hypo/hyperglycemia bupropion HCl 150 mg PO DAILY cholecalciferol (vitamin D3) 25 mcg PO DAILY diaper,brief,adult,disposable Use for stress incontinence docusate sodium (Colace) 100 mg PO BID estradiol 0.01%(0.1mg/gram) vaginally 3 times a week; pea sized amount to urethra 3 times a week fluticasone furoate-vilanterol 200-25 mcg/dose (Breo Ellipta) 1 inh inhalation DAILY 30 days gabapentin 300 mg PO DAILY gabapentin 900 mg PO BEDTIME hydroxyzine pamoate 25 mg PO BEDTIME insulin aspart U-100 (Novolog FlexPen U-100 Insulin aspart) 10 units (0.1 mL) subcut TID insulin detemir U-100 (Levemir FlexTouch U-100 Insulin) 20 units (0.2 mL) subcut DAILY 90 days ipratropium-albuterol 0.5 mg-3 mg(2.5 mg base)/3 mL 3 mL inhalation Q6H PRN 30 days lancets once a day lancets (OneTouch Delica Lancets) Use to check blood sugar twice daily and when having symptoms of hypo/hyperglycemia lisinopril 5 mg PO DAILY montelukast 10 mg PO DAILY nebulizers (AeroEclipse II Nebulizer) As directed ondansetron 4 mg PO ONCE PRN 30 days oxygen-air delivery systems As directed pen needle, diabetic (BD Ultra-Fine Mini Pen Needle) Use to administer insulin twice daily pen needle, diabetic 4x a day polyethylene glycol 3350 (Miralax) 238 grams PO ONCE 1 day pramipexole 0.5 mg PO BID ropinirole 2 mg PO BID 90 days ropinirole 4 mg PO BID tolterodine ER 2 mg PO DAILY 90 days trazodone 200 mg PO BEDTIME Do you need a note to return to daycare/school/sports/work: No HPI COPD HPI Details THIS 73 YEARS OLD FEMALE, WITH MORBID OBESITY AND MULTIPLE COMORBIDITIES, WELL CHRONIC OBSTRUCTIVE PULMONARY DISEASE, IS HERE FOR FOLLOW-UP AFTER 2 MONTHS. ABOUT A MONTH AGO SEEN IN THE EMERGENCY ROOM WITH AN ACUTE EXACERBATION OF COPD, TREATED WITH A SHORT COURSE OF PREDNISONE AND GOT BETTER. SHE CONTINUES TO COMPLAIN OF GETTING SHORT OF BREATH ON MINIMAL WALKING IN THE HOUSE OR OUTSIDE. SHE DOES TAKE. HER MEDICATIONS REGULARLY SHE DOES USE O2 2 L/MINUTE AT HOME DURING THE DAYTIME WELL AT NIGHT. HER POC UNIT NOT FUNCTIONING WELL DUE TO LACK OF BATTERY. HER LOCOMOTION IS IMPAIRED AND SHE USES WALKER TO WALK AROUND, [facility] Medical History Allergic rhinitis Anemia Arthritis CKD (chronic kidney disease) Constipation due to opioid therapy COPD (chronic obstructive pulmonary disease) COPD exacerbation CPAP (continuous positive airway pressure) dependence Diabetes Elevated cholesterol GERD (gastroesophageal reflux disease) History of adrenal adenoma History of diverticulitis History of restless legs syndrome Hx SBO Hyperlipidemia Hypoxemia Morbid obesity Obesity (BMI 30-39.9) LADO (obstructive sleep apnea) Osteoarthritis of left knee Osteochondroma of left femur Respiratory failure with hypoxia Urinary tract infection Surgical History H/O colonoscopy H/O excision of mass H/O exploratory laparotomy History of appendectomy History of arthroscopy of left knee History of cholecystectomy History of hysterectomy History of oophorectomy History of partial colectomy History of surgery Hx of cataract extraction Family History Father HTN (hypertension) Diabetes mellitus Mother HTN (hypertension) Liver cancer Social History 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: Other 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 Other:: EX Housing: Apartment Are you a primary transitional care manager to a significant other at home: No Do you presently have visiting nurse or other home services: No Alcohol intake: never Patient Tobacco Use Status: Never used Tobacco e-Cigarette/Vaping Use: Never Used Second Hand Smoke Exposure: No Advance Directives Date on File: 07/08/21 service: No Current occupational status: retired Cognitive needs: No Hearing needs: No Vision needs: No Review of Systems Const All systems reviewed & are unremarkable except as noted in HPI and below Eyes Reports no additional complaints ENT Reports nasal congestion (Intermittent) Card Denies chest pain, Denies irregular heart rhythm, Reports leg edema and Reports dyspnea Resp Reports as per HPI and Reports dyspnea GI Reports no additional complaints Reports no additional complaints Musc Reports abnormal gait (Impaired gait due to weakness of lower extremities, has to use a walker), Reports back pain and Reports limited range of motion Skin/Breast Reports system reviewed and no additional complaints, except as documented Neuro Reports abnormal gait (Impaired gait due to weakness of lower extremities, has to use a walker) Endo Reports other (Being treated for diabetes mellitus with diabetic neuropathy) Physical Exam Vital Signs: Last Vital Signs Pulse 109 H 03/18/23 11:11 BP 110/60 03/18/23 11:11 Pulse Ox 92 03/18/23 11:11 Oxygen Delivery Method Room Air 03/18/23 11:11 BMI result Body Mass Index 43.0 Const General: comfortable (But very weak), no acute distress, alert and awake Orientation/consciousness: patient oriented x3 HEENT Head: Yes normal to inspection General nose exam: No nasal polyps present, No nasal discharge present and Other nasal findings present (Mild nasal congestion) Face and sinus: Yes sinuses nontender Mouth: oropharynx normal Throat: Yes posterior oropharynx normal Eyes General: appearance normal, both eyes and all related structures Neck Neck: Yes normal visual inspection, Yes no lymphadenopathy, Yes trachea midline and Yes no JVD Thyroid: Thyroid normal Chest Chest palpation & inspection: normal inspection of the chest, normal palpation of entire chest wall and no tenderness Resp Other: Percussion note is resonant, breath sounds are very decreased over the basilar areas. No audible wheezes rhonchi or creps. Cardio Palpation: normal PMI Rate: regular rate Rhythm: regular rhythm Heart sounds: no gallops and no murmurs GI Palpation (GI): Soft to palpation, nontender, No hepatosplenomegaly present, no masses and Other GI palpation findings present (Abdomen is obese and protuberant) Auscultation: normal bowel sounds Back/Spine/Pelvis Thoracic/Lumbar Spine: thoracic and lumbar spine normal to inspection and thoraco-lumbar ROM limited Skin General skin exam: no rashes or lesions noted Neuro General: patient oriented x3 and no focal motor deficits Cranial nerves: Yes CN's II-XII intact bilaterally Extrem General: Yes normal to inspection, Yes no calf tenderness, Yes edema (ONLY MINIMAL AT THIS TIME.), Yes venous stasis dermatitis and Yes other (HAS THE A SMALL CONTUSION OF THE RIGHT FOREFOOT, WITH BLUISH DISCOLORATION ) Psych Appearance: grossly normal Speech and movement: Normal speech and movement present Assessment & Plan Assessment & Plan (1) COPD (chronic obstructive pulmonary disease): Comment: THIS PATIENT DOES HAVE CHRONIC BRONCHITIS/ COPD, WITH SHORTNESS OF BREATH, COUGH AND CONGESTION OF THE CHEST. RELATIVELY STABLE AT THIS TIME TX :DUONEB UPDRAFTS Q 6 HOURS WHILE AWAKE DURING THE DAYTIME.( MAY USE UP TO 3 TIMES A DAY ) ALBUTEROL HFA 2 PUFFS Q 6 HOURS P.R.N. BREO 100-25 one inh daily . Code(s): J44.9 - Chronic obstructive pulmonary disease, unspecified (2) Respiratory failure with hypoxia: Comment: This patient definitely has nocturnal hypoxemia but also desaturates very quickly on any effort. So she is advised to use O2 2 L/minute 24 hours a day. During the daytime if she cannot use POC , she is advised to use the portable cylinder but should use oxygen with any minimal physical activity. WE HAVE ALREADY SENT A REQUEST TO THE DME SUPPLIER, TO SERVICE HER POC UNIT. Code(s): J96.91 - Respiratory failure, unspecified with hypoxia (3) Allergic rhinitis: Comment: Mild, and she may use Flonase 2 spray each nostril daily as needed. Code(s): J30.9 - Allergic rhinitis, unspecified (4) ALDO (obstructive sleep apnea): Comment: Patient does have obstructive sleep apnea as expected, She is NOT ABLE to tolerate the CPAP. Hence she uses oxygen 2 L/minute at night. Code(s): G47.33 - Obstructive sleep apnea (adult) (pediatric) Coding Level of Care Code Est Pt Level 3 (71365) Diagnoses COPD (chronic obstructive pulmonary disease) J44.9 Respiratory failure with hypoxia J96.91 Allergic rhinitis J30.9 ALDO (obstructive sleep apnea) G47.33
== END 2023-03-18 11:36 | disposition home or self-care (01) ==
PROVIDERS: PCP Internal Medicine; Visit Provider Internal Medicine
DX: J44.9 Chronic obstructive pulmonary disease, unspecified (principal); J96.91 Respiratory failure, unspecified with hypoxia; J30.9 Allergic rhinitis, unspecified; G47.33 Obstructive sleep apnea (adult) (pediatric)
CPT/HCPCS: 99213

== ENCOUNTER → 2023-03-18 11:04 | Outpatient (BNVA) | payer OTHER, SELFPAY | PROVIDERS: PCP Internal Medicine; Visit Provider Internal Medicine | DX: J44.9 Chronic obstructive pulmonary disease, unspecified (principal); J96.91 Respiratory failure, unspecified with hypoxia; J30.9 Allergic rhinitis, unspecified; G47.33 Obstructive sleep apnea (adult) (pediatric) | CPT/HCPCS: 99212 ==

== ENCOUNTER 2023-04-09 10:24 | Outpatient (AMB) | payer OTHER, SELFPAY ==
--- NOTE | 2023-04-09 10:36 | A.OFFVIS_ITS ---
Intake Vital Signs 04/09/23 10:54 Height 5 ft Weight 209 lb 7.026 oz BMI 40.9 BP 120/78 Blood Pressure Location Lt brachial Position Sitting Intake Visit Reasons: Bilateral breast pain Intake Note: Patient is seen in office for evaluation and treatment of a bilateral breast pain. Patient c/o: onset 2 month, pain when bending or moving certain ways around the nipple area, had milk ducts removed in the past due to discharge, no other concerns regarding the breast, did no breast feed E Commerce Web Developer Required: No Accompanied by: Family/Other Allergies adhesive tape [ADHESIVE TAPE] Allergy (Intermediate, Verified 04/09/23 10:48) RASH trimethobenzamide [From TIGAN] Allergy (Mild, Verified 04/09/23 10:48) NAUSEA environmental Allergy (Intermediate, Uncoded 04/09/23 10:48) Nasal congestion Medication List - Last Reconciled 04/09/23 by Luiz Fuller MD [adult diapers large twice a day] albuterol sulfate 90 mcg/actuation 1 inh inhalation Q4-6H PRN albuterol sulfate 2.5 mg (3 mL) inhalation Q4-6H PRN albuterol sulfate 1.25 mg (3 mL) inhalation Q4-6H PRN albuterol sulfate 90 mcg/actuation (ProAir HFA) 2 puffs inhalation Q4-6H PRN 30 days amlodipine (Norvasc) 5 mg PO DAILY 30 days aspirin 81 mg PO DAILY atorvastatin 80 mg PO DAILY 90 days bisacodyl (Dulcolax (bisacodyl)) 10 mg (2 x 5 mg) PO ONCE 1 day blood sugar diagnostic (FreeStyle Lite Strips) Use to check blood sugar twice daily and when having symptoms of hypo/hyperglycemia blood sugar diagnostic (OneTouch Ultra Test strips) Use to check blood sugar twice daily and when having symptoms of hypo/hyperglycemia blood-glucose meter (OneTouch Ultra2 Meter) Use to check blood sugar twice daily and when having symptoms of hypo/hyperglycemia bupropion HCl 150 mg PO DAILY cholecalciferol (vitamin D3) 25 mcg PO DAILY diaper,brief,adult,disposable Use for stress incontinence docusate sodium (Colace) 100 mg PO BID estradiol 0.01%(0.1mg/gram) vaginally 3 times a week; pea sized amount to urethra 3 times a week fluticasone furoate-vilanterol 200-25 mcg/dose (Breo Ellipta) 1 inh inhalation DAILY 30 days gabapentin 300 mg PO DAILY gabapentin 900 mg PO BEDTIME hydroxyzine pamoate 25 mg PO BEDTIME insulin aspart U-100 (Novolog FlexPen U-100 Insulin aspart) 10 units (0.1 mL) subcut TID insulin detemir U-100 (Levemir FlexTouch U-100 Insulin) 20 units (0.2 mL) subcut DAILY 90 days ipratropium-albuterol 0.5 mg-3 mg(2.5 mg base)/3 mL 3 mL inhalation Q6H PRN 30 days lancets once a day lancets ([employer] Lancets) Use to check blood sugar twice daily and when having symptoms of hypo/hyperglycemia lisinopril 5 mg PO DAILY montelukast 10 mg PO DAILY nebulizers (AeroEclipse II Nebulizer) As directed oxygen-air delivery systems As directed pen needle, diabetic (BD Ultra-Fine Mini Pen Needle) Use to administer insulin twice daily pen needle, diabetic 4x a day polyethylene glycol 3350 (Miralax) 238 grams PO ONCE 1 day pramipexole 0.5 mg PO BID ropinirole 2 mg PO BID 90 days ropinirole 4 mg PO BID tolterodine ER 2 mg PO DAILY 90 days trazodone 200 mg PO BEDTIME HPI HPI Comments History of Present Illness Details 73-year-old female patient well known to service presenting with complaints of left breast pain. She reports a previous history of bilateral breast excisions for nipple discharge performed by Dr. Fierro many years ago. She was well until approximately 2 months ago when she developed pain around the left nipple and upper outer quadrant. She denies any trauma to the breast and could not feel any palpable mass. She does frequently check her breast for fear breast cancer but denies any new changes. He also denies any nipple discharge. Her last mammogram dated 11/19/2022 revealed no mammographic evidence of malignancy (BI-RADS 2). She denies a family history of breast cancer. [facility] Medical History Allergic rhinitis Anemia Arthritis CKD (chronic kidney disease) Constipation due to opioid therapy COPD (chronic obstructive pulmonary disease) COPD exacerbation CPAP (continuous positive airway pressure) dependence Diabetes Elevated cholesterol GERD (gastroesophageal reflux disease) History of adrenal adenoma History of diverticulitis History of restless legs syndrome Hx SBO Hyperlipidemia Hypoxemia Morbid obesity Obesity (BMI 30-39.9) ALDO (obstructive sleep apnea) Osteoarthritis of left knee Osteochondroma of left femur Respiratory failure with hypoxia Urinary tract infection Surgical History H/O excision of mass History of oophorectomy History of cholecystectomy History of appendectomy History of arthroscopy of left knee History of partial colectomy Hx of cataract extraction H/O exploratory laparotomy H/O colonoscopy History of surgery History of hysterectomy Family History Father HTN (hypertension) Diabetes mellitus Mother HTN (hypertension) Liver cancer Social History 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: Other 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 Other:: EX Housing: Apartment Are you a primary medicare nurse to a significant other at home: No Do you presently have visiting nurse or other home services: No Alcohol intake: never Patient Tobacco Use Status: Never used Tobacco e-Cigarette/Vaping Use: Never Used Second Hand Smoke Exposure: No Advance Directives Date on File: 07/08/21 service: No Current occupational status: retired Cognitive needs: No Hearing needs: No Vision needs: No Female Reproductive History Menstrual Age of Menarche: 13 Age of menopause: 45 Total pregnancies: 2 Number of Living Children: 2 Review of Systems Const All systems reviewed & are unremarkable except as noted in HPI and below Denies chills, Denies fever(s) and Denies weight loss Card Denies chest pain, Denies irregular heart rhythm, Reports leg edema and Reports dyspnea Resp Reports as per HPI and Reports dyspnea GI Reports no additional complaints Reports no additional complaints and Denies nipple discharge Musc Reports back pain and Reports limited range of motion Skin/Breast Reports system reviewed and no additional complaints, except as documented, Denies breast swelling, Denies breast skin changes, Reports breast pain, Denies breast mass and Denies nipple discharge Physical Exam Vital Signs: Last Vital Signs BP 120/78 04/09/23 10:54 BMI result Body Mass Index 40.9 Const General: no acute distress Nutritional Appearance: obese Orientation/consciousness: patient oriented x3 Chest Other: Large pendulous bilateral breasts. Left breast: No skin change, no nipple retraction, no nipple discharge, no palpable mass, no enlarged lymph nodes. Right breast: No skin change, no nipple retraction, no nipple discharge, no palpable mass, no enlarged lymph nodes Resp Effort & Inspection: normal respiratory effort Neuro General: patient oriented x3 Assessment & Plan Assessment & Plan (1) Mastodynia of left breast: Code(s): N64.4 - Mastodynia Plan 73-year-old female patient presenting with complaints of left breast pain around the nipple and upper outer quadrant. She has had previous bilateral breast b iopsies for nipple discharge which were benign. Examination today revealed no suspicious findings in either breast with no skin change, nipple discharge or enlarged lymph nodes. I recommended further evaluation with a diagnostic left breast mammogram and ultrasound. She should return following the studies to review the results and discuss treatment options. Orders: Orders MM diagnostic mammo unilat LT Today N64.4 - Mastodynia US breast LT limited Today N64.4 - Mastodynia Coding Level of Care Code Est Pt Level 3 (88469) Diagnoses Mastodynia of left breast N64.4
[2023-04-09 10:54] VITALS: BP 120/78; BMI 40.9
== END 2023-04-09 11:11 | disposition home or self-care (01) ==
PROVIDERS: PCP Internal Medicine; Visit Provider Surgery
DX: N64.4 Mastodynia (principal)
CPT/HCPCS: 99213

== ENCOUNTER → 2023-04-09 10:24 | Outpatient (BNVA) | payer OTHER, SELFPAY | PROVIDERS: PCP Internal Medicine; Visit Provider Surgery | DX: N64.4 Mastodynia (principal) | CPT/HCPCS: 99212 ==

== ENCOUNTER 2023-04-16 22:37 | Emergency (ER) | payer OTHER, SELFPAY ==
[2023-04-16 22:44] VITALS: BP 122/59; BP 170/80; PULSE 80; PULSE 93; RESP 20; TEMP 36.8; O2SAT 97; O2SAT 98; BMI 42.9
--- NOTE | 2023-04-16 23:08 | ED.SOB ---
HPI - SOB/Dyspnea General Chief Complaint: Dyspnea Stated Complaint: diff. breathing,albuterol 1hr ago but no relief Time Seen by Provider: 04/16/23 22:58 Source: patient Mode of arrival: ambulatory Limitations: no limitations History of Present Illness HPI Narrative: Patient history of COPD/asthma overlap on 2 L oxygen 24hrs comes here for increased cough and shortness of breath 3 days fever no chills feels congested cough is mostly dry no other family member sick patient using albuterol inhaler without much relief the saturating 97% on 2LPM feel chest tight with nausea no chest pain patient also noticed increased leg swelling I last few weeks and gained about 20 lb in last few months Related Data Home Medications Medication Instructions Recorded Confirmed bupropion HCl 150 mg 24 hr tablet, 150 mg PO DAILY 04/25/20 04/09/23 extended release oxygen-air delivery systems ##1 04/25/20 04/09/23 gabapentin 300 mg capsule 900 mg PO BEDTIME 05/13/21 04/09/23 gabapentin 300 mg capsule 300 mg PO DAILY 06/29/21 04/09/23 blood sugar diagnostic (FreeStyle 08/09/21 04/09/23 Lite Strips) aspirin 81 mg chewable tablet 81 mg PO DAILY 10/01/21 04/09/23 trazodone 100 mg tablet 200 mg PO BEDTIME 10/01/21 04/09/23 cholecalciferol (vitamin D3) 25 25 mcg PO DAILY 01/04/22 04/09/23 mcg (1,000 unit) capsule ropinirole 4 mg tablet 4 mg PO BID 08/05/22 02/18/23 hydroxyzine pamoate 25 mg capsule 25 mg PO BEDTIME 08/13/22 04/09/23 pramipexole 0.5 mg tablet 0.5 mg PO BID 01/14/23 04/09/23 Previous Rx's Medication Instructions Recorded nebulizers (AeroEclipse II #1 ea 02/05/21 Nebulizer) lancets 28 gauge #100 ea 06/24/21 bisacodyl 5 mg tablet,delayed 10 mg (2 x 5 mg) PO ONCE 1 day #2 01/14/22 release (Dulcolax (bisacodyl)) tabs polyethylene glycol 3350 17 238 g PO ONCE 1 day #238 grams 01/14/22 gram/dose oral powder (Miralax) docusate sodium 100 mg capsule 100 mg PO BID #60 caps 02/07/22 (Colace) adult diapers large #100 ea 02/25/22 albuterol sulfate 1.25 mg/3 mL 1.25 mg (3 mL) inhalation Q4-6H 03/18/22 solution for nebulization PRN shortness of breath or wheezing #150 mL diaper,brief,adult,disposable #64 ea 05/06/22 albuterol sulfate 90 mcg/actuation 2 puff inhalation Q4-6H PRN 05/17/22 aerosol inhaler (ProAir HFA) shortness of breath or wheezing 30 days #8.5 grams ipratropium 0.5 mg-albuterol 3 mg 3 ml inhalation Q6H PRN wheezing, 05/26/22 (2.5 mg base)/3 mL nebulization copd 30 days #180 mL soln ropinirole 2 mg tablet 2 mg PO BID 90 days #180 tabs 06/02/22 lancets 30 gauge (OneTouch Delica #100 ea 09/16/22 Lancets) blood-glucose meter (LightSand CommunicationsTouch #1 ea 09/19/22 Ultra2 Meter) montelukast 10 mg tablet 10 mg PO DAILY #90 tabs 10/03/22 pen needle, diabetic 31 gauge x #100 ea 10/14/2209/25 (BD Ultra-Fine Mini Pen Needle) amlodipine 5 mg tablet (Norvasc) 5 mg PO DAILY 30 days #90 tabs 10/29/22 insulin detemir U-100 100 unit/mL 20 unit (0.2 mL) subcut DAILY 90 10/29/22 (3 mL) subcutaneous pen (Levemir days #18 mL FlexTouch U-100 Insulin) fluticasone furoate 200 1 inh inhalation DAILY COPD 30 11/14/22 mcg-vilanterol 25 mcg/dose days #60 ea inhalation powder (Breo Ellipta) tolterodine 2 mg capsule,extended 2 mg PO DAILY 90 days #90 caps 11/26/22 release 24 hr insulin aspart U-100 100 unit/mL 10 unit (0.1 mL) subcut TID #15 mL 12/10/22 (3 mL) subcutaneous pen (Novolog FlexPen U-100 Insulin aspart) estradiol 0.01% (0.1 mg/gram) See Rx Instructions vaginal 3XW 12/29/22 vaginal cream #42.5 grams albuterol sulfate 2.5 mg/3 mL 2.5 mg (3 mL) inhalation Q4-6H PRN 01/24/23 (0.083 %) solution for nebulization shortness of breath or wheezing #75 mL albuterol sulfate 90 mcg/actuation 1 inh inhalation Q4-6H PRN 01/24/23 breath activated powder inhaler shortness of breath or wheezing #1 ea blood sugar diagnostic (OneTouch #100 ea 01/27/23 Ultra Test strips) lisinopril 5 mg tablet 5 mg PO DAILY #90 tabs 01/29/23 pen needle, diabetic 31 gauge x #1,200 ea 02/18/23 3/16 atorvastatin 80 mg tablet 80 mg PO DAILY 90 days #90 tabs 03/02/23 cefuroxime axetil 500 mg tablet 500 mg PO BID 10 days #20 tabs 04/17/23 doxycycline hyclate 100 mg tablet 100 mg PO BID #20 tabs 04/17/23 prednisone 20 mg tablet 40 mg (2 x 20 mg) PO DAILY #10 tabs 04/17/23 Allergies Allergy/AdvReac Type Severity Reaction Status Date / Time adhesive tape [ADHESIVE TAPE] Allergy Intermediate RASH Verified 04/09/23 10:48 trimethobenzamide Allergy Mild NAUSEA Verified 04/09/23 10:48 [From TIGAN] environmental Allergy Intermediate Nasal Uncoded 04/09/23 10:48 congestion PMFSH Past Medical History Medical History Allergic rhinitis Anemia Arthritis CKD (chronic kidney disease) Constipation due to opioid therapy COPD (chronic obstructive pulmonary disease) COPD exacerbation CPAP (continuous positive airway pressure) dependence Diabetes Elevated cholesterol GERD (gastroesophageal reflux disease) History of adrenal adenoma History of diverticulitis History of restless legs syndrome Hx SBO Hyperlipidemia Hypoxemia Morbid obesity Obesity (BMI 30-39.9) ALDO (obstructive sleep apnea) Osteoarthritis of left knee Osteochondroma of left femur Respiratory failure with hypoxia Urinary tract infection Surgical History H/O excision of mass History of oophorectomy History of cholecystectomy History of appendectomy History of arthroscopy of left knee History of partial colectomy Hx of cataract extraction H/O exploratory laparotomy H/O colonoscopy History of surgery History of hysterectomy Family History Family History Father HTN (hypertension) Diabetes mellitus Mother HTN (hypertension) Liver cancer Social History Social History 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: Other 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 Other:: EX Housing: Apartment Are you a primary eye care professional to a significant other at home: No Do you presently have visiting nurse or other home services: No Alcohol intake: never Patient Tobacco Use Status: Never used Tobacco Smoked in Last 30 Days: No e-Cigarette/Vaping Use: Never Used Second Hand Smoke Exposure: No Use of substances other than those prescribed or required for medical reasons: No Advance Directives: Yes Advance Directives Information Provided: Yes Advance Directives on File: No Advance Directives Date on File: 07/08/21 service: No Current occupational status: retired Cognitive needs: No Hearing needs: No Vision needs: No Physical Exam Vital Signs: Vital Signs: Last Vital Signs Temp 98.2 F 04/16/23 22:44 Pulse 90 04/17/23 00:13 Resp 18 04/17/23 00:13 BP 122/59 L 04/16/23 22:44 Pulse Ox 97 04/16/23 22:44 O2 Del Method Nasal Cannula 04/16/23 22:44 Oxygen Flow Rate 2 04/16/23 22:44 BMI result Body Mass Index 42.9 Appearance: Alert. Oriented X3. No acute distress. Eyes: No pallor/icterus ENT: Pharynx normal. Oral Mucosa moist Neck: Normal inspection. Neck supple. CVS: Normal heart rate and rhythm. Pulses normal. Respiratory: No respiratory distress. Equal air entry bilateral, no wheezing/rales/rhonchi prolonged expiration Abdomen: Soft and nontender. Bowel sounds are present, no mass palpable, no CVA tenderness Skin: Skin warm and dry. Normal skin color. Normal skin turgor. Extremities: 2+ lower extremity edema. No calf tenderness Neuro: Oriented X 3. No motor deficit. No sensory deficit.No cerebellar signs , cranial nerves II-XII intact Medications Administered Discontinued Medications Generic Name Dose Route Start Last Admin Trade Name Freq PRN Reason Stop Dose Admin Albuterol/Ipratropium 3 ml 04/16/23 23:37 04/17/23 00:13 Albuterol/Iprat 2.5/0.5mg 3 Ml Ampul.Neb INHALE 04/16/23 23:38 3 ml ONCE ONE Administration Cefuroxime Axetil 500 mg 04/16/23 23:26 04/16/23 23:35 Cefuroxime Axetil 500 Mg Tablet PO 04/16/23 23:27 500 mg ONCE ONE Administration Dexamethasone 10 mg 04/16/23 23:26 04/16/23 23:35 Dexamethasone 2 Mg Tablet PO 04/16/23 23:27 10 mg ONCE ONE Administration Doxycycline Monohydrate 100 mg 04/16/23 23:26 04/16/23 23:35 Doxycycline Monohydrate 100 Mg Capsule PO 04/16/23 23:27 100 mg ONCE ONE Administration Medical Decision Making Medical Decision Making [facility] Narrative: Patient with bronchitis x-ray negative serologies negative for COVID/flu saturating 97% on 2 L of discharge patient home on antibiotics and prednisone Differential Diagnosis Differential Diagnoses: The differential diagnosis associated with the presentation includes COPD/bronchitis/pneumonia/Chf Lab Data [facility] Lab Attestation statement: I reviewed the patient's lab results. 04/16/23 22:59 04/16/23 22:59 Labs: Lab Results 04/16/23 Range/Units 22:59 WBC 12.7 H (4.8-10.8) X10*3/uL RBC 4.26 (4.20-5.50) X10*6/uL Hgb 12.0 (12.0-16.0) g/dl Hct 37.3 (37.0-47.0) % MCV 87.6 (80.0-98.0) fL MCH 28.2 (27.0-33.0) pg MCHC 32.2 (31.0-35.0) g/dl RDW 13.2 (11.0-16.0) % Plt Count 238 (160-400) X10*3/uL MPV 11.3 (9.4-12.3) fL Immature Gran % (Auto) 0.4 (0.0-0.4) % Neut % (Auto) 63.7 (45-73) % Lymph % (Auto) 25.4 (20-40) % [place] % (Auto) 7.3 (2-11) % Eos % (Auto) 3.0 (0-4) % Baso % (Auto) 0.2 (0-2) % Lymph # (Auto) 3.2 (1.2-4.9) X10*3/uL [place] # (Auto) 0.9 (0.1-1.2) X10*3/uL Eos # (Auto) 0.4 (0.0-0.4) X10*3/uL Baso # (Auto) 0.0 (0.0-0.2) X10*3/uL Abs Immat Gran (auto) 0.05 H (0.00-0.03) X10*3/uL Absolute Neuts (auto) 8.1 (2.0-8.3) x10*3/uL Absolute Nucleated RBC 0.000 (0.0-0.012) X10*3/uL Nucleated RBC % (auto) 0.0 (0.0-0.2) /100WBC Sodium 141 (135-145) mmol/L Potassium 4.3 (3.3-5.1) mmol/L Chloride 103 (96-108) mmol/L Carbon Dioxide 26 (22-29) mmol/L Anion Gap 16 (12-20) BUN 28 H (9-16) mg/dL Creatinine 1.46 H (0.5-1.4) mg/dL Estim Creat Clear Calc 36.3 Estimated GFR 35 Random Glucose 120 H (60-115) mg/dL Calcium 9.6 (8.4-10.2) mg/dL Total Bilirubin 0.3 (0.0-1.0) mg/dL Direct Bilirubin 0.1 (0.0-0.5) mg/dL AST 19 (5-31) U/L ALT 19 (0-31) U/L Alkaline Phosphatase 38 L (39-117) U/L Troponin I High Sens < 2.7 (<3.5-17.0) ng/L B-Natriuretic Peptide < 10 (<100) pg/mL Total Protein 6.8 (6.5-8.0) g/dL Albumin 3.9 (3.5-5.0) g/dL Lipase 23 (8-78) U/L COVID-19 (JESSIKA) Negative (Negative) COVID-19 Clin Com See Note Influenza Type A (DONY) Negative (Negative) Influenza Type B (DONY) Negative (Negative) Influenza A & B Note See Note Radiology Impression Discussion of test interpretation with radiology: I have reviewed the radiologist's reading. Discharge Plan Discharge Clinical Impression: COPD (chronic obstructive pulmonary disease) Patient Disposition: Home, Self-Care Instructions: COPD (Chronic Obstructive Pulmonary Disease) (ED) Additional Instructions: Continue taking nebulizer treatment every 4-6 hours as needed Prednisone as prescribed Antibiotic as prescribed Follow with PCP if not better Prescriptions: New prednisone 20 mg tablet 40 mg PO DAILY Qty: 10 0RF cefuroxime axetil 500 mg tablet 500 mg PO BID 10 Days Qty: 20 0RF doxycycline hyclate 100 mg tablet 100 mg PO BID Qty: 20 0RF No Action (DME) lancets 28 gauge misc See Rx Instructions topical TID Qty: 100 3RF Rx Instructions: once a day (DME) FreeStyle Lite Strips Strip See Rx Instructions .Route Rx Instructions: Use to check blood sugar twice daily and when having symptoms of hypo/hyperglycemia bisacodyl [Dulcolax (bisacodyl)] 5 mg tablet,delayed release (DR/EC) 10 mg PO ONCE 1 Days Qty: 2 0RF Rx Instructions: take orally as directed prior to colonoscopy polyethylene glycol 3350 [Miralax] 17 gram/dose powder 238 g PO ONCE 1 Days Qty: 238 0RF Rx Instructions: take orally as directed prior to colonoscopy docusate sodium [Colace] 100 mg capsule 100 mg PO BID Qty: 60 2RF albuterol sulfate 1.25 mg/3 mL solution for nebulization 1.25 mg inhalation Q4-6H PRN (Reason: shortness of breath or wheezing) Qty: 150 2RF (DME) diaper,brief,adult,disposable Misc See Rx Instructions .Route Qty: 64 5RF Rx Instructions: Use for stress incontinence albuterol sulfate [ProAir HFA] 90 mcg/actuation HFA aerosol inhaler 2 puff inhalation Q4-6H PRN (Reason: shortness of breath or wheezing) 30 Days Qty: 8.5 2RF ipratropium-albuterol 0.5 mg-3 mg(2.5 mg base)/3 mL solution for nebulization 3 ml inhalation Q6H PRN (Reason: wheezing, copd) 30 Days Qty: 180 3RF ropinirole 2 mg tablet 2 mg PO BID 90 Days Qty: 180 1RF (DME) lancets [OneTouch Delica Lancets] 30 gauge misc See Rx Instructions .Route Qty: 100 2RF Rx Instructions: Use to check blood sugar twice daily and when having symptoms of hypo/hyperglycemia (DME) blood-glucose meter [OneTouch Ultra2 Meter] Mis See Rx Instructions .Route Qty: 1 0RF Rx Instructions: Use to check blood sugar twice daily and when having symptoms of hypo/hyperglycemia montelukast 10 mg tablet 10 mg PO DAILY Qty: 90 1RF (DME) pen needle, diabetic [BD Ultra-Fine Mini Pen Needle] 31 gauge x 3/16 needle See Rx Instructions .Route Qty: 100 2RF Rx Instructions: Use to administer insulin twice daily amlodipine [Norvasc] 5 mg tablet 5 mg PO DAILY 30 Days Qty: 90 0RF Levemir FlexTouch U100 Insulin 100 unit/mL (3 mL) insulin pen 20 unit subcut DAILY 90 Days Qty: 18 3RF fluticasone furoate-vilanterol [Breo Ellipta] 200-25 mcg/dose blister with device 1 inh inhalation DAILY 30 Days Qty: 60 4RF insulin aspart U-100 [Novolog FlexPen U-100 Insulin] 100 unit/mL (3 mL) insulin pen 10 unit subcut TID Qty: 15 0RF estradiol 0.01 % (0.1 mg/gram) cream See Rx Instructions vaginal 3XW Qty: 42.5 3RF Rx Instructions: vaginally 3 times a week; pea sized amount to urethra 3 times a week (DME) OneTouch Ultra Test Strip See Rx Instructions .Route Qty: 100 2RF Rx Instructions: Use to check blood sugar twice daily and when having symptoms of hypo/hyperglycemia lisinopril 5 mg tablet 5 mg PO DAILY Qty: 90 0RF Hold Instructions: Resume on 12/10/21. atorvastatin 80 mg tablet 80 mg PO DAILY 90 Days Qty: 90 0RF (DME) AeroEclipse II Nebulizer [facility] See Rx Instructions .ROUTE .MEDSUPPLY Qty: 1 0RF Rx Instructions: As directed gabapentin 300 mg capsule 300 mg PO DAILY hydroxyzine pamoate 25 mg capsule 25 mg PO BEDTIME trazodone 100 mg tablet 200 mg PO BEDTIME aspirin 81 mg Tablet,Chewable 81 mg PO DAILY cholecalciferol (vitamin D3) 25 mcg (1,000 unit) Capsule 25 mcg PO DAILY albuterol sulfate 90 mcg/actuation aerosol powdr breath activated 1 inh inhalation Q4-6H PRN (Reason: shortness of breath or wheezing) Qty: 1 0RF albuterol sulfate 2.5 mg /3 mL (0.083 %) solution for nebulization 2.5 mg inhalation Q4-6H PRN (Reason: shortness of breath or wheezing) Qty: 75 0RF gabapentin 300 mg capsule 900 mg PO BEDTIME Rx Instructions: pt takes 1 300mg in am and pm and 3 and bedtime (DME) adult diapers large large See Rx Instructions .Route .MEDSUPPLY Qty: 100 6RF Rx Instructions: twice a day (DME) pen needle, diabetic 31 gauge x 3/16 needle See Rx Instructions subcut TID Qty: 1200 1RF Rx Instructions: 4x a day bupropion HCl 150 mg tablet extended release 24 hr 150 mg PO DAILY (DME) oxygen-air delivery systems Device See Rx Instructions .ROUTE .MEDSUPPLY Qty: 1 Rx Instructions: As directed ropinirole 4 mg tablet 4 mg PO BID pramipexole 0.5 mg tablet 0.5 mg PO BID tolterodine 2 mg capsule,extended release 24hr 2 mg PO DAILY 90 Days Qty: 90 3RF
[2023-04-16 23:38] LABS: Alanine Aminotransferase 19 U/L (0-31); Albumin Level 3.9 g/dL (3.5-5.0); Alkaline Phosphatase 38 U/L (39-117); Anion Gap 16 (12-20); Aspartate Amino Transferase 19 U/L (5-31); Bilirubin Direct 0.1 mg/dL (0.0-0.5); Bilirubin Total 0.3 mg/dL (0.0-1.0); Blood Urea Nitrogen 28 mg/dL (9-16); Calcium 9.6 mg/dL (8.4-10.2); Carbon Dioxide 26 mmol/L (22-29); Chloride 103 mmol/L (96-108); Creatinine Clr Calc Pharmacy 36.3; Estimated Glomerular Filt Rate 35; Glucose Random 120 mg/dL (60-115); Lipase 23 U/L (8-78); Potassium 4.3 mmol/L (3.3-5.1); Sodium 141 mmol/L (135-145); Total Protein 6.8 g/dL (6.5-8.0)
[2023-04-17 00:13] VITALS: PULSE 90; RESP 18; O2SAT 96
--- NOTE | 2023-04-17 01:36 | PC.NURSE ---
pt assessed, pt reported doesnt want to wait for ambulance ride home.pt is currently on chronic oxygen NC without a tank
== END 2023-04-17 01:44 | disposition home or self-care (01) ==
PROVIDERS: Emergency Provider Internal Medicine
DX: J44.9 Chronic obstructive pulmonary disease, unspecified (principal); R06.02 Shortness of breath; R60.0 Localized edema; Z11.52 Encounter for screening for COVID-19; E13.22 Other specified diabetes mellitus with diabetic chronic kidney disease; N18.30 Chronic kidney disease, stage 3 unspecified; D64.9 Anemia, unspecified; G47.33 Obstructive sleep apnea (adult) (pediatric); Z99.89 Dependence on other enabling machines and devices; Z99.81 Dependence on supplemental oxygen; Z79.82 Long term (current) use of aspirin; Z79.899 Other long term (current) drug therapy; Z79.4 Long term (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 insulin
CPT/HCPCS: 36415; 71045; 80048; 80076; 83690; 83880; 84484; 85025; 87502; 87635; 93005; 94640; 99284; 99285; J8540

== ENCOUNTER 2023-05-05 09:08 | Outpatient (REF) | payer OTHER, SELFPAY | END 2023-05-05 09:09 | disposition home or self-care (01) | LOC: HO.MAMMO 09:08 | PROVIDERS: PCP Internal Medicine; Visit Provider Surgery | DX: Z13.89 Encounter for screening for other disorder (principal) ==

== ENCOUNTER 2023-05-25 07:45 | Outpatient (REF) | payer OTHER, SELFPAY ==
--- NOTE | ~2023-05-25 | US_ITS ---
EXAMINATION: MM DIAGNOSTIC DIGITAL BREAST TOMOSYNTHESIS, LEFT US BREAST LIMITED, LEFT MAMMOGRAPHY: CLINICAL INFORMATION: Left breast pain superior and outer aspect. COMPARISON: Mammography: 11/19/2022, 11/17/2020, 09/03/2018, 03/01/2019, 09/03/2018 TECHNIQUE: Digital left breast tomosynthesis is performed in both the craniocaudal and mediolateral oblique views along with computer-aided detection (CAD). Synthesized 2D images are generated from the tomosynthesis. In addition, second left MLO 3-D full-field view was obtained. FINDINGS: There are scattered areas of fibroglandular density (ACR BI-RADS breast composition Category b). There are no suspicious masses, suspicious grouped calcifications, or areas of architectural distortion in either breast. The parenchymal pattern is stable from prior exams. No mammographic abnormality is noted in the region of pain in the superior and outer left breast. ULTRASOUND: CLINICAL INFORMATION: Left breast pain superior and outer aspect COMPARISON: None contributory. TECHNIQUE: Targeted left sonographic evaluation was performed using a high frequency linear transducer. Attention was given to the area of pain in the upper outer quadrant as marked by the technologist and as pointed out by the patient. Selected archived documentation. FINDINGS: LEFT BREAST: There is a mixture of fatty and fibroglandular tissue. No suspicious mass is seen. There is no pathologic acoustic shadowing. There is no cystic abnormality. There is no ultrasonographic correlate to the region of breast pain. US/US breast LT limited mamm only IMPRESSION: No findings suspicious for malignancy in the left breast. No changes from prior studies. No mammographic or ultrasonographic correlate to the focus of left breast pain upper outer quadrant. Recommend clinical management. OVERALL ASSESSMENT: Mammography: BI-RADS 1 - Negative Ultrasound: BI-RADS 1 - Negative RECOMMENDATION: 1. Patient should be managed based on the clinical impression. 2. Otherwise, routine annual screening mammography. This patient's information was entered into a reminder system with a target due date for their next mammogram.
== END 2023-05-25 07:46 | disposition home or self-care (01) ==
LOC: HO.MAMMO 07:45
PROVIDERS: PCP Internal Medicine; Visit Provider Surgery
DX: N64.4 Mastodynia (principal)
CPT/HCPCS: 76642; 77061; 77065

== ENCOUNTER → 2023-05-25 09:00 | Outpatient (BNV) | payer OTHER, SELFPAY | PROVIDERS: PCP Internal Medicine; Visit Provider Radiology Diagnostic Radiology | DX: N64.4 Mastodynia (principal) | CPT/HCPCS: 76642; 77061; 77065 ==

== ENCOUNTER 2023-05-27 09:40 | Outpatient (AMB) | payer MEDICARE, SELFPAY ==
--- NOTE | 2023-05-27 09:44 | MHC.PC.OV ---
Vital Signs 05/27/23 09:46 Height 5 ft Weight 224 lb BMI 43.7 BP 130/74 Blood Pressure Location Lt brachial Position Sitting Pulse 90 Pulse Source Pulse Oximeter Pulse Oximetry (%) 96 Oxygen Delivery Method Room Air Intake Visit Reasons: 3 month follow up Allergies adhesive tape [ADHESIVE TAPE] Allergy (Intermediate, Verified 05/27/23 09:46) RASH trimethobenzamide [From TIGAN] Allergy (Mild, Verified 05/27/23 09:46) NAUSEA environmental Allergy (Intermediate, Uncoded 05/27/23 09:46) Nasal congestion Medication List - Last Reconciled 05/27/23 by Shelbi Perez MD [adult diapers large twice a day] albuterol sulfate 90 mcg/actuation 1 inh inhalation Q4-6H PRN albuterol sulfate 2.5 mg (3 mL) inhalation Q4-6H PRN albuterol sulfate 1.25 mg (3 mL) inhalation Q4-6H PRN albuterol sulfate 90 mcg/actuation (ProAir HFA) 2 puffs inhalation Q4-6H PRN 30 days amlodipine (Norvasc) 5 mg PO DAILY 30 days aspirin 81 mg PO DAILY atorvastatin 80 mg PO DAILY 90 days blood sugar diagnostic (FreeStyle Lite Strips) Use to check blood sugar twice daily and when having symptoms of hypo/hyperglycemia blood sugar diagnostic (OneTouch Ultra Test strips) Use to check blood sugar twice daily and when having symptoms of hypo/hyperglycemia blood-glucose meter (OneTouch Ultra2 Meter) Use to check blood sugar twice daily and when having symptoms of hypo/hyperglycemia bupropion HCl 150 mg PO DAILY cholecalciferol (vitamin D3) 25 mcg PO DAILY diaper,brief,adult,disposable Use for stress incontinence fluticasone furoate-vilanterol 200-25 mcg/dose (Breo Ellipta) 1 inh inhalation DAILY 30 days gabapentin 900 mg PO BEDTIME hydroxyzine pamoate 25 mg PO BEDTIME insulin aspart U-100 (Novolog FlexPen U-100 Insulin aspart) 10 units (0.1 mL) subcut TID insulin detemir U-100 (Levemir FlexTouch U-100 Insulin) 20 units (0.2 mL) subcut DAILY 90 days ipratropium-albuterol 0.5 mg-3 mg(2.5 mg base)/3 mL 3 mL inhalation Q6H PRN 30 days lancets once a day lancets (OneTouch Delica Lancets) Use to check blood sugar twice daily and when having symptoms of hypo/hyperglycemia lisinopril 5 mg PO DAILY montelukast 10 mg PO DAILY nebulizers (AeroEclipse II Nebulizer) As directed oxygen-air delivery systems As directed pen needle, diabetic (BD Ultra-Fine Mini Pen Needle) Use to administer insulin twice daily pen needle, diabetic 4x a day pramipexole 0.5 mg PO BID ropinirole 2 mg PO BID 90 days tolterodine ER 2 mg PO DAILY 90 days trazodone 200 mg PO BEDTIME walker Wheeled walker with seat and brakes Tobacco use date assessed: 05/27/23 Fall risk assessment: No Falls in past year Last assessed Fall Risk: 05/27/23 Dental Screening Dental Screen Date: 05/27/23 Did you have a dental visit in the last 12 months?: No Was dental information given to patient?: Patient declined HPI 3 month follow up HPI Details Patient is 73-year-old female came in today for hospital discharge follow-up from [facility] dated 04/16/2023 Patient have history of COPD/asthma overlap and is on 2 L of baseline oxygen Presented to emergency room with increasing cough and shortness of breath of 3 days duration without any fever or chills. Patient complained of chest congestion Vital signs was stable, pulse ox was 97 on oxygen 2 L White count was elevated at 12.0 Creatinine was 1.46 which has improved from before After evaluation patient was discharged with a diagnosis of COPD flare up She was prescribed nebulizer treatment every 4-6 hours as needed Prednisone 20 mg tablets 10, 2 tablets daily for 5 days And antibiotic , cefuroxime 500 mg b.i.d. for 10 days And doxycycline b.i.d. for 10 days Patient is established with customer acquisition specialist her last visit was in March with Dr. Frederick Medication list reviewed Patient is insulin-dependent diabetic, her hemoglobin A1c is 7.8 Breathing miller she is back to her baseline Blood pressure is stable patient is on amlodipine 5 mg, and lisinopril 5 mg She takes atorvastatin for lipid control Pramipexole for restless leg syndrome Patient is also seeing psychiatrist and is taking medication for depression and anxiety through them She is mobile with the help of walker BMI is 43.7 patient is morbidly obese, and had difficulty losing weight She is complaining of severe sore throat today to a strep test which is negative I have sent amoxicillin for the patient She is requesting a walker with the basket so she can put her oxygen tank Patient has chronic urine incontinence and uses depend diaper large size, she changes 4 times a day she need a script for that She is also requesting a shower chair that fits on the top with grab bars. Patient says that her insurance clinical business manager came in and told her that she can have all these things her name was Katy Patient have a Health Care insurance. She will return in September for follow-up appointment [facility] Medical History COPD (chronic obstructive pulmonary disease) Respiratory failure with hypoxia Urinary tract infection Hypoxemia Morbid obesity CKD (chronic kidney disease) Anemia COPD exacerbation Allergic rhinitis ALDO (obstructive sleep apnea) Obesity (BMI 30-39.9) Constipation due to opioid therapy Osteoarthritis of left knee Hx SBO Hyperlipidemia CPAP (continuous positive airway pressure) dependence History of adrenal adenoma Osteochondroma of left femur Arthritis Diabetes Elevated cholesterol History of restless legs syndrome History of diverticulitis GERD (gastroesophageal reflux disease) Surgical History H/O excision of mass History of oophorectomy History of cholecystectomy History of appendectomy History of arthroscopy of left knee History of partial colectomy Hx of cataract extraction H/O exploratory laparotomy H/O colonoscopy History of surgery History of hysterectomy Family History Father HTN (hypertension) Diabetes mellitus Mother HTN (hypertension) Liver cancer Social History 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: Other 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 Other:: EX Housing: Apartment Are you a primary healthcare representative to a significant other at home: No Do you presently have visiting nurse or other home services: No Alcohol intake: never Patient Tobacco Use Status: Never used Tobacco e-Cigarette/Vaping Use: Never Used Second Hand Smoke Exposure: No Advance Directives Date on File: 07/08/21 service: No Current occupational status: retired Cognitive needs: No Hearing needs: No Vision needs: No Female Reproductive History Menstrual Age of Menarche: 13 Questionnaire Thrive Questionnaire Date Thrive assessed: 02/18/23 RACHNA-7 AMB Questionnaire RACHNA-7 Date RACHNA - 7 assessed: 02/18/23 Source: Developed by Drs. Ellis Child, Nimo Castillo, Miguel East and colleagues, with an educational miki from [employer]. Review of Systems Const Denies chills and Denies fever(s) ENT Denies epistaxis and Denies nasal discharge Card Denies chest pain Resp Denies hemoptysis GI Denies diarrhea and Denies nausea Skin/Breast Denies rash Neuro Reports no additional complaints Psych Reports no additional complaints Endo Reports no additional complaints Physical exam (Primary Care) Vital Signs: Last Vital Signs Pulse 90 05/27/23 09:46 BP 130/74 05/27/23 09:46 Pulse Ox 96 05/27/23 09:46 Oxygen Delivery Method Room Air 05/27/23 09:46 BMI result Body Mass Index 43.7 Tobacco/Smoking Status: Tobacco use Status Tobacco use date assessed 05/27/23 05/27/23 09:47 Patient Tobacco Use Status Never used Tobacco 05/27/23 09:45 e-Cigarette/Vaping Use Never Used 05/27/23 09:45 Thrive Assessment: Date of Thrive Assessment Date Thrive assessed 02/18/23 05/27/23 09:45 Const General: cooperative, comfortable and no acute distress Orientation/consciousness: patient oriented x3 HENMT Head: Yes normocephalic Eyes General: appearance normal, both eyes and all related structures Neck Neck: Yes supple Resp Effort & Inspection: normal respiratory effort, no cough and no stridor Cardio Rhythm: regular rhythm Heart sounds: S1 normal heart sound present and S2 normal heart sound present Skin General skin exam: turgor normal Neuro Other: Unsteady on her feet, use walker to walk General: patient oriented x3, tone normal and moves all extremities Results AMB Hemoglobin A1c AMB Hemoglobin A1c 7.8 % Last Edit by Liz Kowalski CMA on 05/27/23 10:07 AMB Rapid Strep AMB Rapid Strep Negative Last Edit by Liz Kowalski CMA on 05/27/23 10:15 Results Reviewed Results Reviewed: Laboratory Last Values Hgb A1c (Clinic) 7.8 % (4.0-6.0) H 05/27/23 10:06 Strep Scn Rapid Clinic Negative 05/27/23 10:06 Assessment and Plan Assessment & Plan (1) Hospital discharge follow-up: Code(s): Z09 - Encounter for follow-up examination after completed treatment for conditions other than malignant neoplasm (2) Chronic kidney disease, stage III (moderate): Code(s): N18.30 - Chronic kidney disease, stage 3 unspecified Qualifiers: Chronic kidney disease stage 3 subtype: stage 3a (GFR 45-59) Qualified Code(s): N18.31 - Chronic kidney disease, stage 3a (3) COPD (chronic obstructive pulmonary disease): Comment: THIS PATIENT DOES HAVE CHRONIC BRONCHITIS/ COPD, WITH SHORTNESS OF BREATH, COUGH AND CONGESTION OF THE CHEST. RELATIVELY STABLE AT THIS TIME TX :DUONEB UPDRAFTS Q 6 HOURS WHILE AWAKE DURING THE DAYTIME.( MAY USE UP TO 3 TIMES A DAY ) ALBUTEROL HFA 2 PUFFS Q 6 HOURS P.R.N. BREO 100-25 one inh daily . 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: Code(s): E10.69 - Type 1 diabetes mellitus with other specified complication; E66.01 - Morbid (severe) obesity due to excess calories (7) Anemia: Code(s): D64.9 - Anemia, unspecified Qualifiers: Anemia type: due to chronic kidney disease Chronic kidney disease stage: stage 3 (moderate) Chronic kidney disease stage 3 subtype: stage 3a (GFR 45-59) Qualified Code(s): N18.31 - Chronic kidney disease, stage 3a; D63.1 - Anemia in chronic kidney disease (8) terminal carman (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 insulin: Code(s): Z79.4 - terminal carman (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 insulin (9) Urine incontinence: Code(s): R32 - Unspecified urinary incontinence Qualifiers: Urinary Incontinence type: mixed stress and urge incontinence Qualified Code(s): N39.46 - Mixed incontinence (10) Chronic GERD: Code(s): K21.9 - Gastro-esophageal reflux disease without esophagitis (11) Lipid disorder: Code(s): E78.9 - Disorder of lipoprotein metabolism, unspecified (12) Environmental allergies: Code(s): Z91.09 - Other allergy status, other than to drugs and biological substances (13) Restless leg syndrome: Code(s): G25.81 - Restless legs syndrome (14) Walker as ambulation aid: Code(s): Z99.89 - Dependence on other enabling machines and devices (15) Risk for falls: Code(s): Z91.81 - History of falling (16) Gait instability: Code(s): R26.81 - Unsteadiness on feet (17) Weakness of both legs: Code(s): R29.898 - Other symptoms and signs involving the musculoskeletal system Plan Patient is 73-year-old female came in today for hospital discharge follow-up from [facility] dated 04/16/2023 Patient have history of COPD/asthma overlap and is on 2 L of baseline oxygen Presented to emergency room with increasing cough and shortness of breath of 3 days duration without any fever or chills. Patient complained of chest congestion Vital signs was stable, pulse ox was 97 on oxygen 2 L White count was elevated at 12.0 Creatinine was 1.46 which has improved from before After evaluation patient was discharged with a diagnosis of COPD flare up She was prescribed nebulizer treatment every 4-6 hours as needed Prednisone 20 mg tablets 10, 2 tablets daily for 5 days And antibiotic , cefuroxime 500 mg b.i.d. for 10 days And doxycycline b.i.d. for 10 days Patient is established with customer acquisition specialist her last visit was in March with Dr. Frederick Medication list reviewed Patient is insulin-dependent diabetic, her hemoglobin A1c is 7.8 Breathing miller she is back to her baseline Blood pressure is stable patient is on amlodipine 5 mg, and lisinopril 5 mg She takes atorvastatin for lipid control Pramipexole for restless leg syndrome Patient is also seeing psychiatrist and is taking medication for depression and anxiety through them She is mobile with the help of walker BMI is 43.7 patient is morbidly obese, and had difficulty losing weight She is complaining of severe sore throat today to a strep test which is negative I have sent amoxicillin for the patient She is requesting a walker with the basket so she can put her oxygen tank Patient has chronic urine incontinence and uses depend diaper large size, she changes 4 times a day she need a script for that She is also requesting a shower chair that fits on the top with grab bars. Patient says that her insurance clinical business manager came in and told her that she can have all these things her name was Katy Patient have a Health Care insurance. Patient does have diabetic neuropathy and gait instability And she is at risk of fall She will return in September for follow-up appointment Orders: Orders AMB Hemoglobin A1c Today E13.9 - Other specified diabetes mellitus without complications AMB Rapid Strep Screen Today Z13.9 - Encounter for screening, unspecified Medications: New amoxicillin 875 mg PO BID 14 tabs 0RF 7 days Refilled insulin aspart U-100 (Novolog FlexPen U-100 Insulin aspart) 10 units (0.1 mL) subcut TID 15 mL 0RF Discontinued ropinirole Discontinued Reason: Doctor's Order 2 mg PO BID 90 days 180 tabs 1RF Coding Level of Care Code Est Pt Level 5 (59526) Diagnoses Hospital discharge follow-up Z09 Stage 3a chronic kidney disease N18.31 Chronic kidney disease stage 3 subtype: stage 3a (GFR 45-59) Panlobular emphysema J43.1 COPD type: emphysema Emphysema type: panlobular Recurrent major depressive disorder, in partial remission F33.41 Active/Remission status: in partial remission Diabetic neuropathy, painful E11.40 Type 1 diabetes mellitus with morbid obesity E10.69; E66.01 Anemia due to stage 3a chronic kidney disease N18.31; D63.1 Anemia type: due to chronic kidney disease Chronic kidney disease stage: stage 3 (moderate) Chronic kidney disease stage 3 subtype: stage 3a (GFR 45-59) terminal carman (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 insulin Z79.4 Mixed stress and urge urinary incontinence N39.46 Urinary Incontinence type: mixed stress and urge incontinence Chronic GERD K21.9 Lipid disorder E78.9 Environmental allergies Z91.09 Restless leg syndrome G25.81 Walker as ambulation aid Z99.89 Risk for falls Z91.81 Gait instability R26.81 Weakness of both legs R29.898
[2023-05-27 09:46] VITALS: BP 130/74; PULSE 90; O2SAT 96; BMI 43.7
== END 2023-05-27 10:19 | disposition home or self-care (01) ==
PROVIDERS: PCP Internal Medicine; Visit Provider Internal Medicine
DX: E13.9 Other specified diabetes mellitus without complications (principal)
CPT/HCPCS: 83036; 87880; 99215

== ENCOUNTER 2023-06-02 14:20 | Outpatient (AMB) | payer OTHER, SELFPAY ==
--- NOTE | 2023-06-02 14:30 | A.OFFVIS_ITS ---
Intake Vital Signs 06/02/23 14:46 Height 5 ft Weight 222 lb 10.67 oz BMI 43.5 BP 122/82 Blood Pressure Location Lt brachial Position Sitting Intake Visit Reasons: Breast US and mammo results Intake Note: Patient is seen in office for ultrasound results, following left breast. Patient c/o: continued pain, here for results mm & us: 05/25/23 Panel Assembler Required: No Accompanied by: Family/Other Allergies adhesive tape [ADHESIVE TAPE] Allergy (Intermediate, Verified 06/02/23 14:46) RASH trimethobenzamide [From TIGAN] Allergy (Mild, Verified 06/02/23 14:46) NAUSEA environmental Allergy (Intermediate, Uncoded 06/02/23 14:46) Nasal congestion Medication List - Last Reconciled 06/02/23 by Luiz Fuller MD [adult diapers large twice a day] albuterol sulfate 90 mcg/actuation 1 inh inhalation Q4-6H PRN albuterol sulfate 2.5 mg (3 mL) inhalation Q4-6H PRN albuterol sulfate 1.25 mg (3 mL) inhalation Q4-6H PRN albuterol sulfate 90 mcg/actuation (ProAir HFA) 2 puffs inhalation Q4-6H PRN 30 days amlodipine (Norvasc) 5 mg PO DAILY 30 days amoxicillin 875 mg PO BID 7 days aspirin 81 mg PO DAILY atorvastatin 80 mg PO DAILY 90 days blood sugar diagnostic (FreeStyle Lite Strips) Use to check blood sugar twice daily and when having symptoms of hypo/hyperglycemia blood sugar diagnostic (OneTouch Ultra Test strips) Use to check blood sugar twice daily and when having symptoms of hypo/hyperglycemia blood-glucose meter (OneTouch Ultra2 Meter) Use to check blood sugar twice daily and when having symptoms of hypo/hyperglycemia bupropion HCl 150 mg PO DAILY cholecalciferol (vitamin D3) 25 mcg PO DAILY diaper,brief,adult,disposable Use for stress incontinence fluticasone furoate-vilanterol 200-25 mcg/dose (Breo Ellipta) 1 inh inhalation DAILY 30 days gabapentin 900 mg PO BEDTIME hydroxyzine pamoate 25 mg PO BEDTIME insulin aspart U-100 (Novolog FlexPen U-100 Insulin aspart) 10 units (0.1 mL) subcut TID insulin detemir U-100 (Levemir FlexTouch U-100 Insulin) 20 units (0.2 mL) subcut DAILY 90 days ipratropium-albuterol 0.5 mg-3 mg(2.5 mg base)/3 mL 3 mL inhalation Q6H PRN 30 days lancets once a day lancets (OneTouch Delica Lancets) Use to check blood sugar twice daily and when having symptoms of hypo/hyperglycemia lisinopril 5 mg PO DAILY montelukast 10 mg PO DAILY nebulizers (AeroEclipse II Nebulizer) As directed oxygen-air delivery systems As directed pen needle, diabetic (BD Ultra-Fine Mini Pen Needle) Use to administer insulin twice daily pen needle, diabetic 4x a day pramipexole 0.5 mg PO BID Shower Chair Shower chair with back and arm rests tolterodine ER 2 mg PO DAILY 90 days trazodone 200 mg PO BEDTIME walker Wheeled walker with seat and brakes HPI HPI Comments History of Present Illness Details 73-year-old female patient well known to service presenting with complaints of left breast pain. She reports a previous history of bilateral b reast excisions for nipple discharge performed by Dr. Fierro many years ago. She was well until approximately 2 months ago when she developed pain around the left nipple and upper outer quadrant. She denies any trauma to the breast and could not feel any palpable mass. She does frequently check her breast for fear breast cancer but denies any new changes. He also denies any nipple discharge. Her last mammogram dated 11/19/2022 revealed no mammographic evidence of malignancy (BI-RADS 2). She denies a family history of breast cancer. She returns today following a recent diagnostic left breast mammogram and ultrasound. This study was performed at the [facility] on 05/25/2023 and revealed no findings suspicious for malignancy in the left breast. No changes were noted from the prior study. No mammographic or ultrasound mahad correlate to the focus of left breast pain in the outer quadrant. Since her last visit the patient reports continued breast pain. On her previous visit however no suspicious findings were noted on examination. She returns today to review the radiologic studies. [facility] Medical History COPD (chronic obstructive pulmonary disease) Respiratory failure with hypoxia Urinary tract infection Hypoxemia Morbid obesity CKD (chronic kidney disease) Anemia COPD exacerbation Allergic rhinitis ALDO (obstructive sleep apnea) Obesity (BMI 30-39.9) Constipation due to opioid therapy Osteoarthritis of left knee Hx SBO Hyperlipidemia CPAP (continuous positive airway pressure) dependence History of adrenal adenoma Osteochondroma of left femur Arthritis Diabetes Elevated cholesterol History of restless legs syndrome History of diverticulitis GERD (gastroesophageal reflux disease) Surgical History H/O excision of mass History of oophorectomy History of cholecystectomy History of appendectomy History of arthroscopy of left knee History of partial colectomy Hx of cataract extraction H/O exploratory laparotomy H/O colonoscopy History of surgery History of hysterectomy Family History Father HTN (hypertension) Diabetes mellitus Mother HTN (hypertension) Liver cancer 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: Other 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 Other:: EX Housing: Apartment Are you a primary animal care supervisor to a significant other at home: No Do you presently have visiting nurse or other home services: No Alcohol intake: never Patient Tobacco Use Status: Never used Tobacco e-Cigarette/Vaping Use: Never Used Second Hand Smoke Exposure: No Advance Directives Date on File: 07/08/21 service: No Current occupational status: retired Cognitive needs: No Hearing needs: No Vision needs: No Female Reproductive History Menstrual Age of Menarche: 13 Review of Systems Const All systems reviewed & are unremarkable except as noted in HPI and below Denies chills, Denies fever(s) and Denies weight loss Card Denies chest pain, Denies irregular heart rhythm, Reports leg edema and Reports dyspnea Resp Reports as per HPI and Reports dyspnea GI Reports no additional complaints Reports no additional complaints and Denies nipple discharge Musc Reports back pain and Reports limited range of motion Skin/Breast Reports system reviewed and no additional complaints, except as documented, Denies breast swelling, Denies breast skin changes, Reports breast pain, Denies breast mass and Denies nipple discharge Physical Exam Vital Signs: Last Vital Signs BP 122/82 06/02/23 14:46 BMI result Body Mass Index 43.5 Const General: no acute distress Nutritional Appearance: obese Orientation/consciousness: patient oriented x3 Chest Other: Exam deferred Resp Effort & Inspection: normal respiratory effort Neuro General: patient oriented x3 Assessment & Plan Assessment & Plan (1) Mastodynia of left breast: Code(s): N64.4 - Mastodynia Plan 73-year-old female patient presenting with complaints of left breast pain around the nipple and upper outer quadrant. She has had previous bilateral breast biopsies for nipple discharge which were benign. Examination revealed no suspicious findings in either breast with no skin change, nipple discharge or enlarged lymph nodes. Diagnostic mammogram and ultrasound left breast was negative for any suspicious findings. I reviewed the findings in detail with the patient. No surgical intervention is recommended at this time. She should continue with her annual screening mammogram due in November 2023. She should follow up p.r.n.. Coding Level of Care Code Est Pt Level 3 (25151) Diagnoses Mastodynia of left breast N64.4
[2023-06-02 14:46] VITALS: BP 122/82; BMI 43.5
== END 2023-06-02 14:59 | disposition home or self-care (01) ==
LOC: HO.HGS 14:20
PROVIDERS: PCP Internal Medicine; Visit Provider Surgery
DX: N64.4 Mastodynia (principal)
CPT/HCPCS: 99213

== ENCOUNTER → 2023-06-02 14:20 | Outpatient (BNVA) | payer OTHER, SELFPAY | PROVIDERS: PCP Internal Medicine; Visit Provider Surgery | DX: N64.4 Mastodynia (principal) | CPT/HCPCS: 99212 ==

== ENCOUNTER 2023-06-06 07:24 | Inpatient (IN) | payer OTHER, SELFPAY ==
[2023-06-06] VITALS (8 sets, daily range): BP systolic 116–150; BP diastolic 54–78; PULSE 83–108; RESP 16–24; TEMP 36.1–36.8; O2SAT 94–98; BMI 34.7; BMI 43.5
--- NOTE | ~2023-06-06 | XR_ITS ---
EXAMINATION: XR CHEST CLINICAL INFORMATION: Dyspnea COMPARISON: None available. TECHNIQUE: Frontal view of the chest was obtained. FINDINGS: The lungs are well expanded and clear acute processes. Heart size and pulmonary vascularity is normal. There is moderate spondylosis dorsal spine with mild dextroscoliosis. No aggressive lytic process seen. XR/XR chest 1V IMPRESSION: No acute cardiopulmonary process seen.
--- NOTE | 2023-06-06 07:33 | ECG_ITS ---
Test Reason : DYSPNEA Blood Pressure : / mmHG Vent. Rate : 082 BPM Atrial Rate : 082 BPM P-R Int : 180 ms QRS Dur : 066 ms QT Int : 382 ms P-R-T Axes : 067 027 027 degrees QTc Int : 446 ms Normal sinus rhythm Nonspecific ST abnormality Abnormal ECG When compared with ECG of 16-APR-2023 22:54, No significant change was found Referred By: Larisa Banegas Electronically Signed By:JORGE LAUGHLIN MD
--- NOTE | 2023-06-06 07:37 | ED.SOB ---
HPI - SOB/Dyspnea General Chief Complaint: Dyspnea Stated Complaint: DIFF BREATHING X 3 DAYS Source: patient and old records reviewed Mode of arrival: EMS Limitations: no limitations History of Present Illness HPI Narrative: 73 yo female with PMH of COPD on 2L NC, DM, obesity, UTI, CKD, colitis, arthritis, anxiety, depression, anemia, GERD, diverticulitis, HLD, restless leg syndrome notes 3 days of cough, congestion and wheezing. No fevers, chest pain, n/v/d. No sick contacts or travel. She states she just couldn't take it anymore. She is using her nebs every 4 hours. MD elicited complaint: shortness of breath and cough Pertinent past history: COPD and asthma Onset (ago): day(s) (3) Context: recent illness Timing: constant Severity: moderate Exacerbating factors: exertion and coughing Relieving factors: rest and bronchodilators Known history of: COPD Associated symptoms: cough, wheezing and sputum production Treatment prior to arrival: bronchodilator Related Data Home oxygen amount: 2 liters Home Medications Medication Instructions Recorded Confirmed bupropion HCl 150 mg 24 hr tablet, 150 mg PO DAILY 04/25/20 06/02/23 extended release oxygen-air delivery systems ##1 04/25/20 06/02/23 gabapentin 300 mg capsule 900 mg PO BEDTIME 05/13/21 06/02/23 blood sugar diagnostic (FreeStyle 08/09/21 06/02/23 Lite Strips) aspirin 81 mg chewable tablet 81 mg PO DAILY 10/01/21 06/02/23 trazodone 100 mg tablet 200 mg PO BEDTIME 10/01/21 06/02/23 cholecalciferol (vitamin D3) 25 25 mcg PO DAILY 01/04/22 06/02/23 mcg (1,000 unit) capsule hydroxyzine pamoate 25 mg capsule 25 mg PO BEDTIME 08/13/22 06/02/23 pramipexole 0.5 mg tablet 0.5 mg PO BID 01/14/23 06/02/23 Previous Rx's Medication Instructions Recorded nebulizers (AeroEclipse II #1 ea 02/05/21 Nebulizer) lancets 28 gauge #100 ea 06/24/21 albuterol sulfate 1.25 mg/3 mL 1.25 mg (3 mL) inhalation Q4-6H 09/06/22 solution for nebulization PRN shortness of breath or wheezing #150 mL diaper,brief,adult,disposable #64 ea 05/06/22 albuterol sulfate 90 mcg/actuation 2 puff inhalation Q4-6H PRN 05/17/22 aerosol inhaler (ProAir HFA) shortness of breath or wheezing 30 days #8.5 grams ipratropium 0.5 mg-albuterol 3 mg 3 ml inhalation Q6H PRN wheezing, 05/26/22 (2.5 mg base)/3 mL nebulization copd 30 days #180 mL soln lancets 30 gauge (OneTouch Delica #100 ea 09/16/22 Lancets) blood-glucose meter (OneTouch #1 ea 09/19/22 Ultra2 Meter) montelukast 10 mg tablet 10 mg PO DAILY #90 tabs 10/03/22 pen needle, diabetic 31 gauge x #100 ea 10/14/2209/25 (BD Ultra-Fine Mini Pen Needle) amlodipine 5 mg tablet (Norvasc) 5 mg PO DAILY 30 days #90 tabs 10/29/22 insulin detemir U-100 100 unit/mL 20 unit (0.2 mL) subcut DAILY 90 10/29/22 (3 mL) subcutaneous pen (Levemir days #18 mL FlexTouch U-100 Insulin) fluticasone furoate 200 1 inh inhalation DAILY COPD 30 11/14/22 mcg-vilanterol 25 mcg/dose days #60 ea inhalation powder (Breo Ellipta) tolterodine 2 mg capsule,extended 2 mg PO DAILY 90 days #90 caps 11/26/22 release 24 hr albuterol sulfate 2.5 mg/3 mL 2.5 mg (3 mL) inhalation Q4-6H PRN 01/24/23 (0.083 %) solution for nebulization shortness of breath or wheezing #75 mL albuterol sulfate 90 mcg/actuation 1 inh inhalation Q4-6H PRN 01/24/23 breath activated powder inhaler shortness of breath or wheezing #1 ea blood sugar diagnostic (OneTouch #100 ea 01/27/23 Ultra Test strips) lisinopril 5 mg tablet 5 mg PO DAILY #90 tabs 01/29/23 pen needle, diabetic 31 gauge x #1,200 ea 08/09/23 3/16 adult diapers large #100 ea 05/20/23 walker #1 ea 05/20/23 atorvastatin 80 mg tablet 80 mg PO DAILY 90 days #90 tabs 05/22/23 Shower Chair #1 ea 05/27/23 amoxicillin 875 mg tablet 875 mg PO BID 7 days #14 tabs 05/27/23 insulin aspart U-100 100 unit/mL 10 unit (0.1 mL) subcut TID #15 mL 05/27/23 (3 mL) subcutaneous pen (Novolog FlexPen U-100 Insulin aspart) Allergies Allergy/AdvReac Type Severity Reaction Status Date / Time adhesive tape [ADHESIVE TAPE] Allergy Intermediate RASH Verified 06/06/23 07:37 trimethobenzamide Allergy Mild NAUSEA Verified 06/06/23 07:37 [From TIGAN] environmental Allergy Intermediate Nasal Uncoded 06/06/23 07:37 congestion Review of Systems Review of Systems: Constitutional : No Fever, pos Chills ENT/Mouth : No Hoarseness, No sore throat, pos Rhinorrhea Eyes: No Redness, No Discharge, No Vision Changes Cardiovascular : No Chest Pain, positive SOB, positive Dyspnea on Exertion, No Edema Respiratory : positive Cough, No Sputum, positive Wheezing, Gastrointestinal : No Nausea, No Vomiting, No Diarrhea, No abdominal Pain Genitourinary : No Dysuria, No Hematuria Musculoskeletal : No joint pain, No Myalgias Skin : No rash Neuro : No Weakness, No Numbness, No Headache Psych : No anxiety, depression Heme/Lymph: No Bruising, No Bleeding Endocrine : No Polyuria, No Polydipsia All other systems reviewed and are negative PMFSH Past Medical History Attestation statement: The following information was validated with the patient. Medical History COPD (chronic obstructive pulmonary disease) Respiratory failure with hypoxia Urinary tract infection Hypoxemia Morbid obesity CKD (chronic kidney disease) Anemia COPD exacerbation Allergic rhinitis ALDO (obstructive sleep apnea) Obesity (BMI 30-39.9) Constipation due to opioid therapy Osteoarthritis of left knee Hx SBO Hyperlipidemia CPAP (continuous positive airway pressure) dependence History of adrenal adenoma Osteochondroma of left femur Arthritis Diabetes Elevated cholesterol History of restless legs syndrome History of diverticulitis GERD (gastroesophageal reflux disease) Surgical History H/O excision of mass History of oophorectomy History of cholecystectomy History of appendectomy History of arthroscopy of left knee History of partial colectomy Hx of cataract extraction H/O exploratory laparotomy H/O colonoscopy History of surgery History of hysterectomy Family History Family History Father HTN (hypertension) Diabetes mellitus Mother HTN (hypertension) Liver cancer Social History 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: Other 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 Other:: EX Housing: Apartment Are you a primary gericare aide teacher to a significant other at home: No Do you presently have visiting nurse or other home services: No Alcohol intake: never Patient Tobacco Use Status: Never used Tobacco Smoked in Last 30 Days: No e-Cigarette/Vaping Use: Never Used Second Hand Smoke Exposure: No Use of substances other than those prescribed or required for medical reasons: No Advance Directives: No Advance Directives Information Provided: No Advance Directives Date on File: 07/08/21 service: No Current occupational status: retired Cognitive needs: No Hearing needs: No Vision needs: No Physical Exam Vital Signs: Vital Signs: Last Vital Signs Temp 97.8 F 06/06/23 07:32 Pulse 85 06/06/23 09:44 Resp 22 H 06/06/23 09:44 BP 122/58 L 06/06/23 09:44 Pulse Ox 97 06/06/23 09:44 O2 Del Method Nasal Cannula 06/06/23 09:44 O2 Flow Rate 2 06/06/23 09:44 Oxygen Flow Rate 2 06/06/23 07:32 BMI result Body Mass Index 34.7 Appearance: Alert. Oriented X3. No acute distress. Eyes: Pupils equal, round and reactive to light. ENT: Pharynx normal. Neck: Normal inspection. Neck supple. CVS: Normal heart rate and rhythm. Pulses normal. Respiratory: No respiratory distress. Breath sounds coarse and diffuse exp wheezes throughout Abdomen: Soft and nontender. obese Skin: Skin warm and dry. Normal skin color. Normal skin turgor. Extremities: No lower extremity edema. No calf ttp Neuro: Oriented X 3. No motor deficit. No sensory deficit. Course Course Course Narrative: repeat hour long neb ordered Medications Administered Discontinued Medications Generic Name Dose Route Start Last Admin Trade Name Freq PRN Reason Stop Dose Admin Albuterol Sulfate 5 mg/ 7.5 mg 06/06/23 08:24 06/06/23 08:33 Albuterol Sulfate 2.5 mg INHALE 06/06/23 08:25 7.5 mg ONCE ONE Administration Albuterol Sulfate 5 mg/ 0 mg 06/06/23 07:39 06/06/23 07:46 Albuterol/Ipratropium 3 ml INHALE 06/06/23 07:40 7.5 each ONCE ONE Administration Ceftriaxone Sodium 1 gm/ 50 mls @ 100 mls/hr 06/06/23 07:52 06/06/23 09:40 Sodium Chloride IV 06/06/23 08:21 Infused ONCE ONE Infusion Methylprednisolone Sodium Succinate 60 mg 06/06/23 07:33 06/06/23 08:35 Methylprednisolone Sod Succ 125 Mg/2 Ml Vial IVPUSH 06/06/23 07:34 60 mg ONCE ONE Administration Medical Decision Making Medical Decision Making MDM Narrative: 73 yo female with PMH of COPD on 2L NC, DM, obesity, UTI, CKD, colitis, arthritis, anxiety, depression, anemia, GERD, diverticulitis, HLD, restless leg syndrome here with c/o URI symptoms and persistent wheezing despite home treatments. At this time she is very wheezy but not hypoxic she is 96% on her 2L NC will obtain basic labs, cultures, lactic acid, CXR for pneumonia, PCR viral panel, give neb, IV steroids, empiric ceftriaxone. Differential Diagnosis Differential Diagnoses: The differential diagnosis associated with the presentation includes URI, viral syndrome, pneumonia, COPD Admission/Observation Consideration of admission/observation: Escalation of care including admission/observation considered still wheezing, no hypoxia but doesn't feel she can manage at home Consult Healthcare Provider Management of the patient was discussed with: Hospitalist (will admit for further workup) Lab Data [facility] Lab Attestation statement: I reviewed the patient's lab results. 06/06/23 07:56 06/06/23 07:56 Labs: Lab Results 06/06/23 06/06/23 Range/Units 07:56 08:00 WBC 12.0 H (4.8-10.8) X10*3/uL RBC 4.13 L (4.20-5.50) X10*6/uL Hgb 11.7 L (12.0-16.0) g/dl Hct 36.8 L (37.0-47.0) % MCV 89.1 (80.0-98.0) fL MCH 28.3 (27.0-33.0) pg MCHC 31.8 (31.0-35.0) g/dl RDW 13.2 (11.0-16.0) % Plt Count 208 (160-400) X10*3/uL MPV 11.5 (9.4-12.3) fL Immature Gran % (Auto) 0.4 (0.0-0.4) % Neut % (Auto) 60.7 (45-73) % Lymph % (Auto) 30.4 (20-40) % [place] % (Auto) 5.2 (2-11) % Eos % (Auto) 3.1 (0-4) % Baso % (Auto) 0.2 (0-2) % Lymph # (Auto) 3.7 (1.2-4.9) X10*3/uL [place] # (Auto) 0.6 (0.1-1.2) X10*3/uL Eos # (Auto) 0.4 (0.0-0.4) X10*3/uL Baso # (Auto) 0.0 (0.0-0.2) X10*3/uL Abs Immat Gran (auto) 0.05 H (0.00-0.03) X10*3/uL Absolute Neuts (auto) 7.3 (2.0-8.3) x10*3/uL Absolute Nucleated RBC 0.000 (0.0-0.012) X10*3/uL Nucleated RBC % (auto) 0.0 (0.0-0.2) /100WBC VBG pH 7.40 (7.32-7.43) VBG pCO2 54 mmHg VBG pO2 82 mmHg VBG HCO3 34 H (22-26) mmol/L VBG O2 Saturation 96.0 % VBG Base Excess 7.9 mmol/L Sodium 142 (135-145) mmol/L Potassium 4.6 (3.3-5.1) mmol/L Chloride 100 (96-108) mmol/L Carbon Dioxide 30 H (22-29) mmol/L Anion Gap 17 (12-20) BUN 19 H (9-16) mg/dL Creatinine 1.64 H (0.5-1.4) mg/dL Estim Creat Clear Calc 38.4 Estimated GFR 31 Random Glucose 205 H (60-115) mg/dL Lactic Acid 2.0 (0.5-2.0) mmol/L Calcium 9.6 (8.4-10.2) mg/dL Magnesium 1.8 (1.6-2.6) mg/dL Total Bilirubin 0.3 (0.0-1.0) mg/dL Direct Bilirubin 0.1 (0.0-0.5) mg/dL AST 25 (5-31) U/L ALT 19 (0-31) U/L Alkaline Phosphatase 39 (39-117) U/L Troponin I High Sens < 2.7 (<3.5-17.0) ng/L B-Natriuretic Peptide < 10 (<100) pg/mL Total Protein 7.3 (6.5-8.0) g/dL Albumin 4.0 (3.5-5.0) g/dL Procalcitonin 0.07 ng/mL Influenza Type A (PCR) NEGATIVE (Negative) Influenza Type B (PCR) NEGATIVE (Negative) RSV RNA Qual (PCR) NEGATIVE (Negative) SARS-CoV-2 RNA (RT-PCR) NEGATIVE (Negative) Independent Interpretation I performed an independent interpretation of an: EKG and Plain X-Ray (no pneumonia) Interpretation: Rate: 82 Rhythm: NSR [place]: normal Normal P waves. Normal MELISSA. Normal QRS complex. ST T wave : no EDWIN, inverted T wave V1, artifact noted qTC: normal prior studies: no acute ischemia The study has been interpreted contemporaneously by me. . Radiology Impression Discussion of test interpretation with radiology: I have reviewed the radiologist's reading. Independent Historian Clinical information obtained from an independent historian. History obtained from or confirmed by: EMS External Record Review External record reviewed: Inpatient record Critical Care Time Critical Care Time Critical Care Time: Yes Total Critical Care Time: 35 Attestation: repeat hour long nebs, review or records, admission I attest to this time spent taking care of the patient Discharge Plan Discharge Clinical Impression: Acute exacerbation of chronic obstructive pulmonary disease Patient Disposition: Admitted As Inpatient Prescriptions: No Action (DME) lancets 28 gauge misc See Rx Instructions topical TID Qty: 100 3RF Rx Instructions: once a day (DME) FreeStyle Lite Strips Strip See Rx Instructions .Route Rx Instructions: Use to check blood sugar twice daily and when having symptoms of hypo/hyperglycemia albuterol sulfate 1.25 mg/3 mL solution for nebulization 1.25 mg inhalation Q4-6H PRN (Reason: shortness of breath or wheezing) Qty: 150 2RF (DME) diaper,brief,adult,disposable Misc See Rx Instructions .Route Qty: 64 5RF Rx Instructions: Use for stress incontinence albuterol sulfate [ProAir HFA] 90 mcg/actuation HFA aerosol inhaler 2 puff inhalation Q4-6H PRN (Reason: shortness of breath or wheezing) 30 Days Qty: 8.5 2RF ipratropium-albuterol 0.5 mg-3 mg(2.5 mg base)/3 mL solution for nebulization 3 ml inhalation Q6H PRN (Reason: wheezing, copd) 30 Days Qty: 180 3RF (DME) lancets [OneTouch Delica Lancets] 30 gauge misc See Rx Instructions .Route Qty: 100 2RF Rx Instructions: Use to check blood sugar twice daily and when having symptoms of hypo/hyperglycemia (DME) blood-glucose meter [OneTouch Ultra2 Meter] Misc See Rx Instructions .Route Qty: 1 0RF Rx Instructions: Use to check blood sugar twice daily and when having symptoms of hypo/hyperglycemia montelukast 10 mg tablet 10 mg PO DAILY Qty: 90 1RF (DME) pen needle, diabetic [BD Ultra-Fine Mini Pen Needle] 31 gauge x 3/16 needle See Rx Instructions .Route Qty: 100 2RF Rx Instructions: Use to administer insulin twice daily amlodipine [Norvasc] 5 mg tablet 5 mg PO DAILY 30 Days Qty: 90 0RF Levemir FlexTouch U100 Insulin 100 unit/mL (3 mL) insulin pen 20 unit subcut DAILY 90 Days Qty: 18 3RF fluticasone furoate-vilanterol [Breo Ellipta] 200-25 mcg/dose blister with device 1 inh inhalation DAILY 30 Days Qty: 60 4RF (DME) OneTouch Ultra Test Strip See Rx Instructions .Route Qty: 100 2RF Rx Instructions: Use to check blood sugar twice daily and when having symptoms of hypo/hyperglycemia lisinopril 5 mg tablet 5 mg PO DAILY Qty: 90 0RF Hold Instructions: Resume on 12/10/21. ([facility] [place]er [facility] See Rx Instructions .Route Qty: 1 0RF Rx Instructions: Wheeled walker with seat and brakes ([facility] [place]) adult diapers large large See Rx Instructions .Route .MEDSUPPLY Qty: 100 6RF Rx Instructions: twice a day atorvastatin 80 mg tablet 80 mg PO DAILY 90 Days Qty: 90 0RF ([facility] [place]) Shower Chair [facility] See Rx Instructions .Route Qty: 1 0RF Rx Instructions: Shower chair with back and arm rests ([facility] [place]) AeroEclipse II Nebulizer [facility] See Rx Instructions .ROUTE .MEDSUPPLY Qty: 1 0RF Rx Instructions: As directed hydroxyzine pamoate 25 mg capsule 25 mg PO BEDTIME trazodone 100 mg tablet 200 mg PO BEDTIME aspirin 81 mg Tablet,Chewable 81 mg PO DAILY cholecalciferol (vitamin D3) 25 mcg (1,000 unit) Capsule 25 mcg PO DAILY albuterol sulfate 90 mcg/actuation aerosol pow breath activated 1 inh inhalation Q4-6H PRN (Reason: shortness of breath or wheezing) Qty: 1 0RF albuterol sulfate 2.5 mg /3 mL (0.083 %) solution for nebulization 2.5 mg inhalation Q4-6H PRN (Reason: shortness of breath or wheezing) Qty: 75 0RF gabapentin 300 mg capsule 900 mg PO BEDTIME Rx Instructions: pt takes 1 300mg in am and pm and 3 and bedtime insulin aspart U-100 [Novolog FlexPen U-100 Insulin] 100 unit/mL (3 mL) insulin pen 10 unit subcut TID Qty: 15 0RF amoxicillin 875 mg tablet 875 mg PO BID 7 Days Qty: 14 0RF ([facility] [place]) pen needle, diabetic 31 gauge x 3/16 needle See Rx Instructions subcut TID Qty: 1200 1RF Rx Instructions: 4x a day bupropion HCl 150 mg tablet extended release 24 hr 150 mg PO DAILY ([facility] [place]) oxygen-air delivery systems Device See Rx Instructions .ROUTE .MEDSUPPLY Qty: 1 Rx Instructions: As directed pramipexole 0.5 mg tablet 0.5 mg PO BID tolterodine 2 mg capsule,extended release 24hr 2 mg PO DAILY 90 Days Qty: 90 3RF
[2023-06-06] MEDS: Albuterol Sulfate 5 MG, Albuterol/Iprat 2.5/0.5MG 3 ML 3 ML INHALE (07:46)
[2023-06-06 08:01] LABS: MANUAL DIFF FLAG NO
[2023-06-06 08:03] LABS: Basophils Percent Auto 0.2 % (0-2); Eosinophils Absolute Auto 0.4 X10*3/uL (0.0-0.4); Eosinophils Percent Auto 3.1 % (0-4); Hematocrit 36.8 % (37.0-47.0); Hemoglobin 11.7 g/dl (12.0-16.0); Imm Gran Abs Auto 0.05 X10*3/uL (0.00-0.03); Imm Gran Pct Auto 0.4 % (0.0-0.4); Lymphocytes Absolute Auto 3.7 X10*3/uL (1.2-4.9); Lymphocytes Percent Auto 30.4 % (20-40); Mean Corpuscular HGB Conc 31.8 g/dl (31.0-35.0); Mean Corpuscular Hemoglobin 28.3 pg (27.0-33.0); Mean Corpuscular Volume 89.1 fL (80.0-98.0); Mean Platelet Volume 11.5 fL (9.4-12.3); Monocytes Absolute Auto 0.6 X10*3/uL (0.1-1.2); Monocytes Percent Auto 5.2 % (2-11); Neutrophils Absolute Auto 7.3 x10*3/uL (2.0-8.3); Neutrophils Percent Auto 60.7 % (45-73); Platelet Count 208 X10*3/uL (160-400); Red Blood Count 4.13 X10*6/uL (4.20-5.50); Red Cell Distribution Width 13.2 % (11.0-16.0)
[2023-06-06 08:06] LABS: VBG Base Excess 7.9 mmol/L; VBG HCO3 34 mmol/L (22-26); VBG pCO2 54 mmHg; VBG pO2 82 mmHg
[2023-06-06 08:08] LABS: Venous Blood Gas Refer to POC result
[2023-06-06 08:23] LABS: B Type Natriuretic Peptide < 10 pg/mL (<100)
[2023-06-06] MEDS: Albuterol Sulfate 5 MG, Albuterol Sulfate (0.083%) 2.5 MG 7.5 MG INHALE (08:33)
[2023-06-06] MEDS: cefTRIAXone sodium 1 GM in 0.9 % Sodium Chloride 50 ML IV (08:35)
[2023-06-06] MEDS: methylPREDNISolone Sod Succ 125 MG/2 ML VIAL 60 MG IVPUSH (08:35)
[2023-06-06 08:40] LABS: Troponin-I High Sensitivity < 2.7 ng/L (<3.5-17.0)
[2023-06-06 08:48] LABS: Influenza A PCR NEGATIVE (Negative); Influenza B PCR NEGATIVE (Negative); Resp Syncy Virus RNA Qual PCR NEGATIVE (Negative); SARS COV2 PCR INHOUSE NEGATIVE (Negative)
[2023-06-06 08:52] LABS: Alanine Aminotransferase 19 U/L (0-31); Alkaline Phosphatase 39 U/L (39-117); Anion Gap 17 (12-20); Aspartate Amino Transferase 25 U/L (5-31); Bilirubin Direct 0.1 mg/dL (0.0-0.5); Bilirubin Total 0.3 mg/dL (0.0-1.0); Blood Urea Nitrogen 19 mg/dL (9-16); Calcium 9.6 mg/dL (8.4-10.2); Carbon Dioxide 30 mmol/L (22-29); Chloride 100 mmol/L (96-108); Creatinine Clr Calc Pharmacy 38.4; Estimated Glomerular Filt Rate 31; Glucose Random 205 mg/dL (60-115); Magnesium 1.8 mg/dL (1.6-2.6); Potassium 4.6 mmol/L (3.3-5.1); Sodium 142 mmol/L (135-145); Total Protein 7.3 g/dL (6.5-8.0)
[2023-06-06 09:18] LABS: Procalcitonin 0.07 ng/mL
--- NOTE | 2023-06-06 10:40 | PM.IMHP ---
History of Present Illness Date of Service: 06/06/23 Chief Complaint: Shortness of breath Chief Complaint: Abdominal pain 73-year-old female patient with a past medical history significant for hypertension, hyperlipidemia, diabetes mellitus, GERD, osteoarthritis, CKD3, osteo chondroma left femur history of COPD on 2 L of oxygen, history of obstructive sleep apnea on CPAP. She presents with severe days of increasing shortness of breath and wheezing despite repeat use of inhalers at home. CXR is unremarkable, and O2 saturation is within normal range. She is treated in the ED with bronchodilators by Neb, IV steroid, and is being admitted for exacerbation of COPD. Review of Systems Review of Systems: Gen: no fever Resp: + sob, + cough CV: no chest, no OBRIEN, no leg edema GI: No n/v, no abd pain Neuro: No confusion [facility] Medical History COPD (chronic obstructive pulmonary disease) Respiratory failure with hypoxia Urinary tract infection Hypoxemia Morbid obesity CKD (chronic kidney disease) Anemia COPD exacerbation Allergic rhinitis ALDO (obstructive sleep apnea) Obesity (BMI 30-39.9) Constipation due to opioid therapy Osteoarthritis of left knee Hx SBO Hyperlipidemia CPAP (continuous positive airway pressure) dependence History of adrenal adenoma Osteochondroma of left femur Arthritis Diabetes Elevated cholesterol History of restless legs syndrome History of diverticulitis GERD (gastroesophageal reflux disease) Family History Father HTN (hypertension) Diabetes mellitus Mother HTN (hypertension) Liver cancer Surgical History H/O excision of mass History of oophorectomy History of cholecystectomy History of appendectomy History of arthroscopy of left knee History of partial colectomy Hx of cataract extraction H/O exploratory laparotomy H/O colonoscopy History of surgery History of hysterectomy 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: Other 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 Other:: EX Housing: Apartment Are you a primary care companion to a significant other at home: No Do you presently have visiting nurse or other home services: No Alcohol intake: never Patient Tobacco Use Status: Never used Tobacco Smoked in Last 30 Days: No e-Cigarette/Vaping Use: Never Used Second Hand Smoke Exposure: No Use of substances other than those prescribed or required for medical reasons: No Advance Directives: No Advance Directives Information Provided: No Advance Directives Date on File: 07/08/21 service: No Current occupational status: retired Cognitive needs: No Hearing needs: No Vision needs: No Meds Allergies Allergy/AdvReac Type Severity Reaction Status Date / Time adhesive tape [ADHESIVE TAPE] Allergy Intermediate RASH Verified 06/06/23 07:37 trimethobenzamide Allergy Mild NAUSEA Verified 06/06/23 07:37 [From TIGAN] environmental Allergy Intermediate Nasal Uncoded 06/06/23 07:37 congestion Home Medications Medication Instructions Recorded Confirmed Last Taken Type bupropion HCl 150 mg 24 hr tablet, 150 mg PO DAILY 04/25/20 06/06/23 01/03/22 History extended release oxygen-air delivery systems ##1 04/25/20 06/02/23 11/22/21 History gabapentin 300 mg capsule 900 mg PO BEDTIME 05/13/21 06/06/23 11/22/21 History blood sugar diagnostic (FreeStyle 08/09/21 06/02/23 11/22/21 History Lite Strips) aspirin 81 mg chewable tablet 81 mg PO DAILY 10/01/21 06/06/23 01/03/22 History trazodone 100 mg tablet 200 mg PO BEDTIME 10/01/21 06/06/23 11/22/21 History cholecalciferol (vitamin D3) 25 25 mcg PO DAILY 01/04/22 06/06/23 01/03/22 History mcg (1,000 unit) capsule hydroxyzine pamoate 25 mg capsule 25 mg PO BID 08/13/22 06/06/23 Unknown History pramipexole 0.5 mg tablet 0.5 mg PO BID 01/14/23 06/06/23 Unknown History citalopram 10 mg tablet 10 mg PO DAILY 06/06/23 06/06/23 Unknown History gabapentin 300 mg capsule 300 mg PO QAM 06/06/23 06/06/23 Unknown History insulin aspart U-100 100 unit/mL See Protocol subcut TID 06/06/23 06/06/23 06/05/23 History (3 mL) subcutaneous pen (Novolog FlexPen U-100 Insulin aspart) multivitamin 1 tab PO DAILY 06/06/23 06/06/23 Unknown History ropinirole 2 mg tablet 2 mg PO BID 06/06/23 06/06/23 Unknown History Physical Exam Vital Signs and Narrative: Vital Signs: Last Vital Signs Temp 97.8 F 06/06/23 07:32 Pulse 85 06/06/23 09:44 Resp 22 H 06/06/23 09:44 BP 122/58 L 06/06/23 09:44 Pulse Ox 97 06/06/23 09:44 O2 Del Method Nasal Cannula 06/06/23 09:44 O2 Flow Rate 2 06/06/23 09:44 Oxygen Flow Rate 2 06/06/23 07:32 BMI result Body Mass Index 34.7 Const: Other: Constitutional: Alert, in no distress, overweight. Mental Status: Oriented to person, place and time. Eyes: Pupils are equal, round and reactive to light. Ear, Nose and Throat: Oropharynx clear, mucous membranes moist. Respiratory: Clear to auscultation. No wheezing, rales or rhonchi. Cardiovascular: S1 S2 regular. No murmurs, rubs or gallops. Gastrointestinal: Abdomen soft, non-tender, non-distended. Normal bowel sounds.? Neurologic: Cranial nerves II-XII grossly intact. No focal neurological deficits. Moves all extremities spontaneously.? Skin: No rashes or lesions.? Musculoskeletal: No cyanosis or clubbing. Psychiatric: Normal mood and affect? Results Labs 06/06/23 07:56 06/06/23 07:56 Labs: Laboratory Results - last 24 hr 06/06/23 06/06/23 07:56 08:00 MCV 89.1 MCH 28.3 MCHC 31.8 RDW 13.2 Plt Count 208 MPV 11.5 Immature Gran % (Auto) 0.4 Neut % (Auto) 60.7 Lymph % (Auto) 30.4 [place] % (Auto) 5.2 Eos % (Auto) 3.1 Baso % (Auto) 0.2 Lymph # (Auto) 3.7 [place] # (Auto) 0.6 Eos # (Auto) 0.4 Baso # (Auto) 0.0 Abs Immat Gran (auto) 0.05 H Absolute Neuts (auto) 7.3 Absolute Nucleated RBC 0.000 Nucleated RBC % (auto) 0.0 VBG pH 7.40 VBG pCO2 54 VBG pO2 82 VBG HCO3 34 H VBG O2 Saturation 96.0 VBG Base Excess 7.9 Anion Gap 17 Estim Creat Clear Calc 38.4 Estimated GFR 31 Random Glucose 205 H Lactic Acid 2.0 Calcium 9.6 Magnesium 1.8 Total Bilirubin 0.3 Direct Bilirubin 0.1 AST 25 ALT 19 Alkaline Phosphatase 39 B-Natriuretic Peptide < 10 Total Protein 7.3 Albumin 4.0 Procalcitonin 0.07 Influenza Type A (PCR) NEGATIVE Influenza Type B (PCR) NEGATIVE RSV RNA Qual (PCR) NEGATIVE SARS-CoV-2 RNA (RT-PCR) NEGATIVE Imaging Radiologist's Impressions: Impressions Chest X-Ray 06/06/23 08:25 IMPRESSION: No acute cardiopulmonary process seen. Assessment and Plan (1) Acute exacerbation of chronic obstructive pulmonary disease: Status: Acute Plan 73-year-old female patient with past medical history significant for hypertension, hyperlipidemia, diabetes mellitus, GERD, osteoarthritis, CKD3, osteo chondroma left femur history of COPD on 2 L of oxygen, history of obstructive sleep apnea on CPAP here with SOB and is admitted for exacerbation of COPD with chronic respiratory failure #Acute COPD exacerbation without hypoxia -treat with bronchodilaros by Neb, IV Corticosteroid, O2 # diabetes, SSI, - diabetic diet # hypertension, continue Norvasc #HLD --lipitor # peripheral Neuropathy--gabapentin #ckd3--stable #Mood desorders--continue home meds #Obesity--weight loss advised DVT--lovenox admission for 2 minimum midnights for management with acute copd exacerbation need IV steroid and close monitoring for detelioration given multiple comorbidities Quality Stroke Does the patient have a stroke diagnosis?: No VTE Prior VTE?: No VTE Risk Level:: Medical - moderate - high VTE Device Contraindication: Treatment Not Indicated VTE Drug Contraindication: N/A - Med Ordered
--- NOTE | 2023-06-06 10:50 | PHA.MEDREC ---
Addendum entered by Tata Ross 06/06/23 11:55: Asked the patient about lisinopril to reverify and she is unsure if she is on it. Will add to medication list as she last picked up in January (after the amlodipine) and could potentially have some left over from previous fills. Original Note: Pharmacy Consult ? Medication Reconciliation Pharmacy has completed the medication reconciliation. spoke with patient to confirm medications. She reports being on one blood pressure medication and believes the lisinopril got discontinued. She confirmed being on two medications for her restless leg syndrome. The pramipexole is prescribed for TID however she cannot remember to take it in the afternoon so she uses it BID. She confirmed her insulin doses and that she uses a SS for the aspart. She reports taking hydroxyzine BID instead of once daily. She reports that she did not take any medications today.
[2023-06-06] MEDS: Albuterol Sulfate 2.5 MG, Albuterol Sulfate (0.083%) 2.5 MG 5 MG INHALE (11:12)
[2023-06-06] MEDS: buPROPion HCl XL 150 MG TAB.ER.24H PO (12:27)
[2023-06-06] MEDS: Gabapentin 300 MG CAPSULE PO (12:28)
[2023-06-06] MEDS: Escitalopram Oxalate 5 MG TABLET PO (12:28)
[2023-06-06] MEDS: Montelukast Sodium 10 MG TABLET PO (12:28)
[2023-06-06] MEDS: Cholecalciferol (Vitamin D3) 25 MCG TABLET PO (12:28)
[2023-06-06] MEDS: Multivitamin TABLET 1 TAB PO (12:28)
[2023-06-06] MEDS: Atorvastatin Calcium 80 MG TABLET PO (12:28)
[2023-06-06] MEDS: Aspirin 81 MG TAB.CHEW PO (12:29)
[2023-06-06] MEDS: Enoxaparin Sodium 40 MG/0.4 ML SYRINGE SUBCUT (12:30)
--- NOTE | 2023-06-06 12:39 | PC.NURSE ---
delayed admin of and Mirapex and Ropinerole secondary to meds not loaded in pyxis. Pharmacy notified; will bring to unit [facility].
[2023-06-06 13:54] LABS: Glucose, Whole Blood 240 mg/dL (60-115)
[2023-06-06] MEDS: Insulin Lispro 100 UNIT/ML 3 ML VIAL SUBCUT ×3 (13:56→20:39)
[2023-06-06] MEDS: Insulin Glargine,Hum.rec.anlog 100 UNIT/ML 10 ML VIAL 14 UNIT SUBCUT (13:56)
[2023-06-06] MEDS: Pramipexole Di-HCL 0.25 MG TABLET 0.5 MG PO ×2 (13:57→20:40)
[2023-06-06] MEDS: rOPINIRole HCL 2 MG TABLET PO ×2 (13:57→20:41)
--- NOTE | 2023-06-06 16:03 | PC.NURSE ---
Report given to Saran MAURER
[2023-06-06 16:38] LABS: Glucose, Whole Blood 330 mg/dL (60-115)
[2023-06-06] MEDS: 0.9 % Sodium Chloride Flush 3 ML SYRINGE IVFLUSH ×2 (16:55→20:40)
[2023-06-06 20:33] LABS: Glucose, Whole Blood 322 mg/dL (60-115)
[2023-06-06] MEDS: methylPREDNISolone Sod Succ 40 MG/ML VIAL IVPUSH (20:40)
[2023-06-06] MEDS: Gabapentin 300 MG CAPSULE 900 MG PO (20:40)
[2023-06-06] MEDS: traZODone HCL 100 MG TABLET 200 MG PO (20:41)
[2023-06-06] MEDS: hydrOXYzine HCL 25 MG TABLET PO (20:41)
[2023-06-06] MEDS: Acetaminophen 325 MG TABLET 650 MG PO (21:43)
[2023-06-07] MEDS: Albuterol Sulfate (0.083%) 2.5 MG/3 ML VIAL.NEB INHALE ×2 (03:07→14:08)
[2023-06-07 03:08] VITALS: PULSE 76; RESP 18; O2SAT 95
[2023-06-07 03:44] VITALS: BP 140/65; PULSE 79; RESP 18; TEMP 36.6; O2SAT 96
--- NOTE | 2023-06-07 07:06 | P.PNIM_ITS ---
Subjective Subjective Date of Service: 06/07/23 Interval History: f/u on acute copd exacerbation, chronic resp failure. Still feels congested Physical Exam 2 Vital Signs: Vital Signs: Last Vital Signs Temp 97.8 F 06/07/23 03:44 Pulse 79 06/07/23 03:44 Resp 18 06/07/23 03:44 BP 140/65 H 06/07/23 03:44 Pulse Ox 96 06/07/23 03:44 O2 Del Method Nasal Cannula 06/07/23 03:44 O2 Flow Rate 2 06/07/23 03:44 Oxygen Flow Rate 2 06/06/23 07:32 BMI result Body Mass Index 43.5 Const: Other: General: AO X 3, no acute distress Resp: some wheeze and dimish sounds shannan CVS: S1,S2,RRR GI: +BS, NT, no distention Skin: No rash Neuro: motor grossly intact Psych: appropriate affect Objective Data Active Medications Acetaminophen (Acetaminophen 325 Mg Tablet) 650 mg PO Q6H PRN PRN Reason: Pain, Mild (Pain Scale 1-3) Last Admin: 06/06/23 21:43 Dose: 650 mg Documented By: DEBRA Albuterol Sulfate (Albuterol Sulfate (0.083%) 2.5 Mg/3 Ml Vial.Neb) 2.5 mg INHALE Q4H PRN PRN Reason: shortness of breath or wheezing Last Admin: 06/07/23 03:07 Dose: 2.5 mg Documented By: JESSICA Albuterol Sulfate (Albuterol Sulfate 90 Mcg 8 Gm Inhaler) 2 puff INHALE Q4H PRN PRN Reason: shortness of breath or wheezing Amlodipine Besylate (Amlodipine Besylate 5 Mg Tablet) 5 mg PO DAILY [facility]; Protocol Aspirin (Aspirin 81 Mg Tab.Chew) 81 mg PO DAILY [facility] Last Admin: 06/06/23 12:29 Dose: 81 mg Documented By: SADAF Atorvastatin Calcium (Atorvastatin Calcium 80 Mg Tablet) 80 mg PO DAILY [facility] Last Admin: 06/06/23 12:28 Dose: 80 mg Documented By: SADAF Bupropion HCl (Bupropion Hcl Xl 150 Mg Tab.Er.24h) 150 mg PO DAILY [facility] Last Admin: 06/06/23 12:27 Dose: 150 mg Documented By: SADAF Dextrose (Dextrose 50 % 25 Gm/50 Ml Syringe) 25 gm IVPUSH Q15M PRN; Protocol PRN Reason: per Hypoglycemia Standing Ord. Enoxaparin Sodium (Enoxaparin Sodium 40 Mg/0.4 Ml Syringe) 40 mg SUBCUT Q24H [facility] Last Admin: 06/06/23 12:30 Dose: 40 mg Documented By: SADAF Escitalopram Oxalate (Escitalopram Oxalate 5 Mg Tablet) 5 mg PO DAILY [facility] Last Admin: 06/06/23 12:28 Dose: 5 mg Documented By: SADAF Gabapentin (Gabapentin 300 Mg Capsule) 300 mg PO DAILY [facility] Last Admin: 06/06/23 12:28 Dose: 300 mg Documented By: SADAF Gabapentin (Gabapentin 300 Mg Capsule) 900 mg PO BEDTIME [facility] Last Admin: 06/06/23 20:40 Dose: 900 mg Documented By: DEBRA Glucose (Glucose Gel 15 Gm Gel..Gram.) 15 gm PO Q15M PRN; Protocol PRN Reason: per Hypoglycemia Standing Ord. Hydroxyzine HCl (Hydroxyzine Hcl 25 Mg Tablet) 25 mg PO BID [facility] Last Admin: 06/06/23 20:41 Dose: 25 mg Documented By: DEBRA Insulin Glargine (Insulin Glargine,Hum.Rec.Anlog 100 Unit/Ml 10 Ml Vial) 14 unit SUBCUT DAILY [facility] Last Admin: 06/06/23 13:56 Dose: 14 unit Documented By: SADAF Insulin Human Lispro (Insulin Lispro 100 Unit/Ml 3 Ml Vial) 0 unit SUBCUT QIDACHS [facility]; Protocol Last Admin: 06/06/23 20:39 Dose: 8 unit Documented By: EDBRA Magnesium Hydroxide (Milk Of Magnesia 30 Ml Oral.Susp) 30 ml PO DAILY PRN PRN Reason: Constipation Melatonin (Melatonin 3 Mg Tablet) 6 mg PO BEDTIME PRN PRN Reason: Insomnia Methylprednisolone Sodium Succinate (Methylprednisolone Sod Succ 40 Mg/Ml Vial) 40 mg IVPUSH BID [facility] Last Admin: 06/06/23 20:40 Dose: 40 mg Documented By: DEBRA Montelukast Sodium (Montelukast Sodium 10 Mg Tablet) 10 mg PO DAILY [facility] Last Admin: 06/06/23 12:28 Dose: 10 mg Documented By: SADAF Multivitamins/Vitamin C (Multivitamin Tablet) 1 tab PO DAILY [facility] Last Admin: 06/06/23 12:28 Dose: 1 tab Documented By: SADAF Ondansetron HCl (Ondansetron Hcl 4 Mg/2 Ml Vial) 4 mg IVPUSH Q8H PRN PRN Reason: Nausea and Vomiting Pramipexole Dihydrochloride (Pramipexole Di-Hcl 0.25 Mg Tablet) 0.5 mg PO BID [facility] Last Admin: 06/06/23 20:40 Dose: 0.5 mg Documented By: DEBRA Ropinirole HCl (Ropinirole Hcl 2 Mg Tablet) 2 mg PO BID [facility] Last Admin: 06/06/23 20:41 Dose: 2 mg Documented By: DEBRA Senna (Sennosides 8.6 Mg Tablet) 17.2 mg PO BEDTIME PRN PRN Reason: Constipation Sodium Chloride (0.9 % Sodium Chloride Flush 3 Ml Syringe) 3 ml IVFLUSH QSHIFT [facility] Last Admin: 06/06/23 20:40 Dose: 3 ml Documented By: DEBRA Trazodone HCl (Trazodone Hcl 100 Mg Tablet) 200 mg PO BEDTIME [facility] Last Admin: 06/06/23 20:41 Dose: 200 mg Documented By: DEBRA Vitamin D (Cholecalciferol (Vitamin D3) 25 Mcg Tablet) 25 mcg PO DAILY [facility] Last Admin: 06/06/23 12:28 Dose: 25 mcg Documented By: SADAF Labs 06/06/23 07:56 06/06/23 07:56 Labs: Laboratory Results - last 24 hr 06/06/23 06/06/23 06/06/23 07:56 08:00 13:49 MCV 89.1 MCH 28.3 MCHC 31.8 RDW 13.2 Plt Count 208 MPV 11.5 Immature Gran % (Auto) 0.4 Neut % (Auto) 60.7 Lymph % (Auto) 30.4 Cloud % (Auto) 5.2 Eos % (Auto) 3.1 Baso % (Auto) 0.2 Lymph # (Auto) 3.7 Cloud # (Auto) 0.6 Eos # (Auto) 0.4 Baso # (Auto) 0.0 Abs Immat Gran (auto) 0.05 H Absolute Neuts (auto) 7.3 Absolute Nucleated RBC 0.000 Nucleated RBC % (auto) 0.0 VBG pH 7.40 VBG pCO2 54 VBG pO2 82 VBG HCO3 34 H VBG O2 Saturation 96.0 VBG Base Excess 7.9 Anion Gap 17 Estim Creat Clear Calc 38.4 Estimated GFR 31 POC Glucose 240 H Random Glucose 205 H Lactic Acid 2.0 Calcium 9.6 Magnesium 1.8 Total Bilirubin 0.3 Direct Bilirubin 0.1 AST 25 ALT 19 Alkaline Phosphatase 39 B-Natriuretic Peptide < 10 Total Protein 7.3 Albumin 4.0 Procalcitonin 0.07 Influenza Type A (PCR) NEGATIVE Influenza Type B (PCR) NEGATIVE RSV RNA Qual (PCR) NEGATIVE SARS-CoV-2 RNA (RT-PCR) NEGATIVE 06/06/23 06/06/23 16:32 20:13 MCV MCH MCHC RDW Plt Count MPV Immature Gran % (Auto) Neut % (Auto) Lymph % (Auto) Cloud % (Auto) Eos % (Auto) Baso % (Auto) Lymph # (Auto) Cloud # (Auto) Eos # (Auto) Baso # (Auto) Abs Immat Gran (auto) Absolute Neuts (auto) Absolute Nucleated RBC Nucleated RBC % (auto) VBG pH VBG pCO2 VBG pO2 VBG HCO3 VBG O2 Saturation VBG Base Excess Anion Gap Estim Creat Clear Calc Estimated GFR POC Glucose 330 H 322 H Random Glucose Lactic Acid Calcium Magnesium Total Bilirubin Direct Bilirubin AST ALT Alkaline Phosphatase B-Natriuretic Peptide Total Protein Albumin Procalcitonin Influenza Type A (PCR) Influenza Type B (PCR) RSV RNA Qual (PCR) SARS-CoV-2 RNA (RT-PCR) Assessment and Plan (1) Acute exacerbation of chronic obstructive pulmonary disease: Status: Acute Plan 73-year-old female patient with past medical history significant for hypertension, hyperlipidemia, diabetes mellitus, GERD, osteoarthritis, CKD3, osteo chondroma left femur history of COPD on 2 L of oxygen, history of obstructive sleep apnea on CPAP here with SOB and is admitted for exacerbation of COPD with chronic respiratory failure #Acute COPD exacerbation without hypoxia -treat with bronchodilaros by Neb, continue IV Corticosteroid for 1 more day then change to PO, O2@ 2 L NC # diabetes, Lantus + SSI, diabetic diet # hypertension, controlled, continue Norvasc #HLD --lipitor # peripheral Neuropathy--gabapentin #ckd3--stable #Mood desorders--continue home meds #Obesity--weight loss advised DVT--lovenox need for inpt: IV steroid for decompensated copd and frequent monitoring of resp status Quality Stroke Does the patient have a stroke diagnosis?: No VTE Prior VTE?: No VTE Risk Level:: Medical - moderate - high VTE Device Contraindication: Treatment Not Indicated VTE Drug Contraindication: N/A - Med Ordered
[2023-06-07 07:49] LABS: Glucose, Whole Blood 245 mg/dL (60-115)
[2023-06-07 07:53] VITALS: BP 139/64; PULSE 79; RESP 18; TEMP 36.3; O2SAT 96
[2023-06-07] MEDS: hydrOXYzine HCL 25 MG TABLET PO ×2 (08:17→19:46)
[2023-06-07] MEDS: rOPINIRole HCL 2 MG TABLET PO ×2 (08:18→19:46)
[2023-06-07] MEDS: Pramipexole Di-HCL 0.25 MG TABLET 0.5 MG PO ×2 (08:18→19:46)
[2023-06-07] MEDS: Multivitamin TABLET 1 TAB PO (08:18)
[2023-06-07] MEDS: Escitalopram Oxalate 5 MG TABLET PO (08:18)
[2023-06-07] MEDS: Aspirin 81 MG TAB.CHEW PO (08:18)
[2023-06-07] MEDS: Atorvastatin Calcium 80 MG TABLET PO (08:19)
[2023-06-07] MEDS: Montelukast Sodium 10 MG TABLET PO (08:19)
[2023-06-07] MEDS: methylPREDNISolone Sod Succ 40 MG/ML VIAL IVPUSH ×2 (08:19→19:46)
[2023-06-07] MEDS: Cholecalciferol (Vitamin D3) 25 MCG TABLET PO (08:19)
[2023-06-07] MEDS: Gabapentin 300 MG CAPSULE PO (08:19)
[2023-06-07] MEDS: Insulin Lispro 100 UNIT/ML 3 ML VIAL SUBCUT ×4 (08:19→22:03)
[2023-06-07] MEDS: amLODIPine Besylate 5 MG TABLET PO (08:19)
[2023-06-07] MEDS: buPROPion HCl XL 150 MG TAB.ER.24H PO (08:19)
[2023-06-07] MEDS: Insulin Glargine,Hum.rec.anlog 100 UNIT/ML 10 ML VIAL 14 UNIT SUBCUT (08:20)
[2023-06-07 11:33] LABS: Glucose, Whole Blood 327 mg/dL (60-115)
[2023-06-07] MEDS: Enoxaparin Sodium 40 MG/0.4 ML SYRINGE SUBCUT (12:04)
[2023-06-07 14:09] VITALS: PULSE 86; RESP 20; O2SAT 96
--- NOTE | 2023-06-07 14:55 | MHC.CM.PN ---
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
[2023-06-07 15:04] VITALS: BP 127/59; PULSE 86; RESP 16; TEMP 36.1; O2SAT 95
[2023-06-07] MEDS: Acetaminophen 325 MG TABLET 650 MG PO (15:45)
[2023-06-07 16:29] LABS: Glucose, Whole Blood 339 mg/dL (60-115)
[2023-06-07] MEDS: 0.9 % Sodium Chloride Flush 3 ML SYRINGE IVFLUSH ×2 (17:12→19:47)
[2023-06-07] MEDS: Gabapentin 300 MG CAPSULE 900 MG PO (19:45)
[2023-06-07] MEDS: traZODone HCL 100 MG TABLET 200 MG PO (19:46)
[2023-06-07 20:00] VITALS: BP 133/60; PULSE 79; RESP 18; TEMP 36.7; O2SAT 96
[2023-06-07 20:34] LABS: Glucose, Whole Blood 322 mg/dL (60-115)
[2023-06-07 22:23] LABS: Appearance Urine Clear; Color Urine Yellow; Glucose Urine UA >=1000 mg/dL (Negative); Leukocyte Esterase Urine Negative (Negative); Nitrite Urine Negative (Negative); Specific Gravity - Urine 1.025 (1.005-1.025); UMIC TRIGGER UACC YES; Urine Blood Negative (Negative); Urine Ketones Negative (Negative); Urine Protein Negative (Neg-Trace)
[2023-06-07 22:36] LABS: Bacteria Urine None Seen (None Seen); Hyaline Casts Urine 0-2 /LPF (0-2); RBC Urine 0-2 /HPF (0-2); WBC Urine 0-5 /HPF (0-5)
[2023-06-08] MEDS: Acetaminophen 325 MG TABLET 650 MG PO ×2 (02:22→08:41)
[2023-06-08 04:00] VITALS: BP 127/58; PULSE 86; RESP 16; TEMP 36.6; O2SAT 95
[2023-06-08 07:02] VITALS: BP 133/65; PULSE 87; RESP 18; TEMP 37.3; O2SAT 96
[2023-06-08 07:29] LABS: Glucose, Whole Blood 281 mg/dL (60-115)
[2023-06-08] MEDS: Insulin Lispro 100 UNIT/ML 3 ML VIAL SUBCUT ×4 (08:37→21:10)
[2023-06-08] MEDS: Insulin Glargine,Hum.rec.anlog 100 UNIT/ML 10 ML VIAL 14 UNIT SUBCUT (08:37)
[2023-06-08] MEDS: methylPREDNISolone Sod Succ 40 MG/ML VIAL IVPUSH ×2 (08:37→21:13)
[2023-06-08] MEDS: Pramipexole Di-HCL 0.25 MG TABLET 0.5 MG PO ×2 (08:38→21:09)
[2023-06-08] MEDS: Escitalopram Oxalate 5 MG TABLET PO (08:38)
[2023-06-08] MEDS: Cholecalciferol (Vitamin D3) 25 MCG TABLET PO (08:38)
[2023-06-08] MEDS: hydrOXYzine HCL 25 MG TABLET PO ×2 (08:38→21:09)
[2023-06-08] MEDS: Montelukast Sodium 10 MG TABLET PO (08:38)
[2023-06-08] MEDS: Multivitamin TABLET 1 TAB PO (08:38)
[2023-06-08] MEDS: Aspirin 81 MG TAB.CHEW PO (08:38)
[2023-06-08] MEDS: buPROPion HCl XL 150 MG TAB.ER.24H PO (08:38)
[2023-06-08] MEDS: rOPINIRole HCL 2 MG TABLET PO ×2 (08:38→21:08)
[2023-06-08] MEDS: Gabapentin 300 MG CAPSULE PO (08:39)
[2023-06-08] MEDS: amLODIPine Besylate 5 MG TABLET PO (08:39)
[2023-06-08] MEDS: Atorvastatin Calcium 80 MG TABLET PO (08:39)
[2023-06-08] MEDS: 0.9 % Sodium Chloride Flush 3 ML SYRINGE IVFLUSH ×3 (08:39→21:25)
--- NOTE | 2023-06-08 10:33 | P.PNIM_ITS ---
Subjective Subjective Date of Service: 06/08/23 Interval History: feels short of breath particularly with exertion coughing yellow sputum tinged with small amount of blood no fver Review of Systems Review of Systems: Yes all other systems are reviewed and are negative Physical Exam 2 Vital Signs: Vital Signs: Last Vital Signs Temp 99.1 F 06/08/23 07:02 Pulse 87 06/08/23 07:02 Resp 18 06/08/23 07:02 BP 133/65 06/08/23 07:02 Pulse Ox 96 06/08/23 07:02 O2 Del Method Nasal Cannula 06/08/23 07:02 O2 Flow Rate 2 06/08/23 07:02 Oxygen Flow Rate 2 06/06/23 07:32 BMI result Body Mass Index 43.5 Gen: in no acute distress HEENT: sclera anicteric, moist mucus membranes Neck: supple Lungs: diminished air entry, end-expiratory wheezing at bases bilaterally Heart: regular rate and rhythm, no murmurs Abd: soft, non-tender, non-distended, morbidly obese Ext: no edema Skin: warm/well-perfused Neuro: alert and oriented x3, no focal findings Psych: appropriate affect Objective Data Active Medications Acetaminophen (Acetaminophen 325 Mg Tablet) 650 mg PO Q6H PRN PRN Reason: Pain, Mild (Pain Scale 1-3) Last Admin: 06/08/23 08:41 Dose: 650 mg Documented By: MICHEL Albuterol Sulfate (Albuterol Sulfate (0.083%) 2.5 Mg/3 Ml Vial.Neb) 2.5 mg INHALE Q4H PRN PRN Reason: shortness of breath or wheezing Last Admin: 06/07/23 14:08 Dose: 2.5 mg Documented By: LEONILA Albuterol Sulfate (Albuterol Sulfate 90 Mcg 8 Gm Inhaler) 2 puff INHALE Q4H PRN PRN Reason: shortness of breath or wheezing Amlodipine Besylate (Amlodipine Besylate 5 Mg Tablet) 5 mg PO DAILY [facility]; Protocol Last Admin: 06/08/23 08:39 Dose: 5 mg Documented By: MICHEL Aspirin (Aspirin 81 Mg Tab.Chew) 81 mg PO DAILY [facility] Last Admin: 06/08/23 08:38 Dose: 81 mg Documented By: MICHEL Atorvastatin Calcium (Atorvastatin Calcium 80 Mg Tablet) 80 mg PO DAILY [facility] Last Admin: 06/08/23 08:39 Dose: 80 mg Documented By: COTEMA Bupropion HCl (Bupropion Hcl Xl 150 Mg Tab.Er.24h) 150 mg PO DAILY [facility] Last Admin: 06/08/23 08:38 Dose: 150 mg Documented By: COTEMA Dextrose (Dextrose 50 % 25 Gm/50 Ml Syringe) 25 gm IVPUSH Q15M PRN; Protocol PRN Reason: per Hypoglycemia Standing Ord. Enoxaparin Sodium (Enoxaparin Sodium 40 Mg/0.4 Ml Syringe) 40 mg SUBCUT Q24H [facility] Last Admin: 06/07/23 12:04 Dose: 40 mg Documented By: MAHESH Escitalopram Oxalate (Escitalopram Oxalate 5 Mg Tablet) 5 mg PO DAILY [facility] Last Admin: 06/08/23 08:38 Dose: 5 mg Documented By: COTEMA Gabapentin (Gabapentin 300 Mg Capsule) 300 mg PO DAILY [facility] Last Admin: 06/08/23 08:39 Dose: 300 mg Documented By: ESTEFANIAEMA Gabapentin (Gabapentin 300 Mg Capsule) 900 mg PO BEDTIME [facility] Last Admin: 06/07/23 19:45 Dose: 900 mg Documented By: LYSZ Glucose (Glucose Gel 15 Gm Gel..Gram.) 15 gm PO Q15M PRN; Protocol PRN Reason: per Hypoglycemia Standing Ord. Hydroxyzine HCl (Hydroxyzine Hcl 25 Mg Tablet) 25 mg PO BID [facility] Last Admin: 06/08/23 08:38 Dose: 25 mg Documented By: ESTEFANIAEMA Insulin Glargine (Insulin Glargine,Hum.Rec.Anlog 100 Unit/Ml 10 Ml Vial) 14 unit SUBCUT DAILY [facility] Last Admin: 06/08/23 08:37 Dose: 14 unit Documented By: MICHEL Insulin Human Lispro (Insulin Lispro 100 Unit/Ml 3 Ml Vial) 0 unit SUBCUT QIDACHS [facility]; Protocol Last Admin: 06/08/23 08:37 Dose: 6 unit Documented By: ESTEFANIAEMA Magnesium Hydroxide (Milk Of Magnesia 30 Ml Oral.Susp) 30 ml PO DAILY PRN PRN Reason: Constipation Melatonin (Melatonin 3 Mg Tablet) 6 mg PO BEDTIME PRN PRN Reason: Insomnia Methylprednisolone Sodium Succinate (Methylprednisolone Sod Succ 40 Mg/Ml Vial) 40 mg IVPUSH BID [facility] Last Admin: 06/08/23 08:37 Dose: 40 mg Documented By: COTEMA Montelukast Sodium (Montelukast Sodium 10 Mg Tablet) 10 mg PO DAILY [facility] Last Admin: 06/08/23 08:38 Dose: 10 mg Documented By: MICHEL Multivitamins/Vitamin C (Multivitamin Tablet) 1 tab PO DAILY [facility] Last Admin: 06/08/23 08:38 Dose: 1 tab Documented By: ESTEFANIAEMA Ondansetron HCl (Ondansetron Hcl 4 Mg/2 Ml Vial) 4 mg IVPUSH Q8H PRN PRN Reason: Nausea and Vomiting Pramipexole Dihydrochloride (Pramipexole Di-Hcl 0.25 Mg Tablet) 0.5 mg PO BID [facility] Last Admin: 06/08/23 08:38 Dose: 0.5 mg Documented By: MICHEL Ropinirole HCl (Ropinirole Hcl 2 Mg Tablet) 2 mg PO BID [facility] Last Admin: 06/08/23 08:38 Dose: 2 mg Documented By: ESTEFANIAEMA Senna (Sennosides 8.6 Mg Tablet) 17.2 mg PO BEDTIME PRN PRN Reason: Constipation Sodium Chloride (0.9 % Sodium Chloride Flush 3 Ml Syringe) 3 ml IVFLUSH QSHIFT [facility] Last Admin: 06/08/23 08:39 Dose: 3 ml Documented By: MICHEL Trazodone HCl (Trazodone Hcl 100 Mg Tablet) 200 mg PO BEDTIME [facility] Last Admin: 06/07/23 19:46 Dose: 200 mg Documented By: LYSZ Vitamin D (Cholecalciferol (Vitamin D3) 25 Mcg Tablet) 25 mcg PO DAILY [facility] Last Admin: 06/08/23 08:38 Dose: 25 mcg Documented By: MICHEL Labs 06/06/23 07:56 06/06/23 07:56 Labs: Laboratory Results - last 24 hr 06/07/23 06/07/23 06/07/23 11:30 16:18 20:20 POC Glucose 327 H 339 H 322 H Urine Color Urine Appearance Urine pH Ur Specific Lucinda Urine Protein Urine Glucose (UA) Urine Ketones Urine Blood Urine Nitrite Ur Leukocyte Esterase Urine RBC Urine WBC Ur Squamous Epith Cells Urine Bacteria Hyaline Casts Urine Yeast 06/07/23 06/08/23 22:15 07:07 POC Glucose 281 H Urine Color Yellow Urine Appearance Clear Urine pH 6.0 Ur Specific Lucinda 1.025 Urine Protein Negative Urine Glucose (UA) >=1000 H Urine Ketones Negative Urine Blood Negative Urine Nitrite Negative Ur Leukocyte Esterase Negative Urine RBC 0-2 Urine WBC 0-5 Ur Squamous Epith Cells 11-20 Urine Bacteria None Seen Hyaline Casts 0-2 Urine Yeast Present Microbiology Microbiology Results: Microbiology 06/06/23 07:56 Blood Culture - Preliminary Blood - Venous No growth after 48 hours. 06/06/23 08:32 Blood Culture - Preliminary Blood - Venous No growth after 24 hours. Assessment and Plan (1) Acute exacerbation of chronic obstructive pulmonary disease: Status: Acute Plan d3 73yo F with HTN, HLD, DM2, GERD, OA, CKD3, osteochondroma of L femur, COPD on 2L home O2, ALDO on CPAP admitted for COPD exac acute COPD exac - continue IV steroids, nebs chronic hypoxic RF - O2 2L @ night DM2 - basal-bolus insulin HTN - amlodipine HLD - atorvastatin peripheral neuropathy - gabapentin CKD3 - SCr at baseline mood disorder - bupropion, hydroxyzine, trazodone, escitalopram RLS - pramipexole, ropinirole morbid obesity - diet/exercise counseling VTE ppx - LMWH dispo - PT consult, may need STR vs home with VNA In my clinical judgment, the patient requires continued inpatient hospitalization for the following reasons: dyspnea, COPD Total time managing care of this patient today: 35 minutes. Quality Stroke Does the patient have a stroke diagnosis?: No VTE Prior VTE?: No VTE Risk Level:: Medical - moderate - high VTE Device Contraindication: Treatment Not Indicated VTE Drug Contraindication: N/A - Med Ordered
[2023-06-08 11:20] LABS: Glucose, Whole Blood 221 mg/dL (60-115)
[2023-06-08] MEDS: Enoxaparin Sodium 40 MG/0.4 ML SYRINGE SUBCUT (11:37)
--- NOTE | 2023-06-08 13:56 | MHC.CM.PN ---
pr rounds pt to have pt eval ?str no dc date at this time
[2023-06-08] MEDS: oxyCODONE HCl Immed Release 5 MG TABLET PO ×2 (14:16→21:36)
[2023-06-08] MEDS: Lidocaine 4 % Patch ADH..PATCH 1 PATCH TRANSDERMA (14:16)
[2023-06-08 15:21] VITALS: BP 136/60; PULSE 92; RESP 18; TEMP 36.6; O2SAT 96
[2023-06-08 16:30] LABS: Glucose, Whole Blood 400 mg/dL (60-115)
[2023-06-08 19:30] VITALS: BP 129/86; PULSE 87; RESP 16; TEMP 36.6; O2SAT 95
[2023-06-08 20:29] VITALS: PULSE 78; RESP 20; O2SAT 97
[2023-06-08] MEDS: Albuterol Sulfate (0.083%) 2.5 MG/3 ML VIAL.NEB INHALE (20:29)
[2023-06-08 20:37] LABS: Glucose, Whole Blood 382 mg/dL (60-115)
[2023-06-08] MEDS: Gabapentin 300 MG CAPSULE 900 MG PO (21:08)
[2023-06-08] MEDS: traZODone HCL 100 MG TABLET 200 MG PO (21:09)
[2023-06-09] MEDS: oxyCODONE HCl Immed Release 5 MG TABLET PO (03:00)
[2023-06-09 04:00] VITALS: BP 119/58; PULSE 67; RESP 17; TEMP 36.4; O2SAT 95
[2023-06-09 07:22] VITALS: BP 145/77; PULSE 87; RESP 20; TEMP 36.2; O2SAT 97
[2023-06-09 07:29] LABS: Glucose, Whole Blood 307 mg/dL (60-115)
[2023-06-09] MEDS: Lidocaine 4 % Patch ADH..PATCH 1 PATCH TRANSDERMA (07:52)
[2023-06-09] MEDS: Atorvastatin Calcium 80 MG TABLET PO (07:53)
[2023-06-09] MEDS: Sennosides 8.6 MG TABLET 17.2 MG PO (07:53)
[2023-06-09] MEDS: Gabapentin 300 MG CAPSULE PO (07:53)
[2023-06-09] MEDS: Escitalopram Oxalate 5 MG TABLET PO (07:53)
[2023-06-09] MEDS: hydrOXYzine HCL 25 MG TABLET PO (07:53)
[2023-06-09] MEDS: amLODIPine Besylate 5 MG TABLET PO (07:53)
[2023-06-09] MEDS: 0.9 % Sodium Chloride Flush 3 ML SYRINGE IVFLUSH (07:53)
[2023-06-09] MEDS: Cholecalciferol (Vitamin D3) 25 MCG TABLET PO (07:53)
[2023-06-09] MEDS: Montelukast Sodium 10 MG TABLET PO (07:54)
[2023-06-09] MEDS: buPROPion HCl XL 150 MG TAB.ER.24H PO (07:54)
[2023-06-09] MEDS: methylPREDNISolone Sod Succ 40 MG/ML VIAL IVPUSH (07:54)
[2023-06-09] MEDS: Insulin Lispro 100 UNIT/ML 3 ML VIAL SUBCUT ×2 (07:54→12:06)
[2023-06-09] MEDS: Aspirin 81 MG TAB.CHEW PO (07:54)
[2023-06-09] MEDS: Insulin Glargine,Hum.rec.anlog 100 UNIT/ML 10 ML VIAL 18 UNIT SUBCUT (07:55)
[2023-06-09] MEDS: Multivitamin TABLET 1 TAB PO (08:20)
[2023-06-09] MEDS: Pramipexole Di-HCL 0.25 MG TABLET 0.5 MG PO (08:20)
[2023-06-09] MEDS: rOPINIRole HCL 2 MG TABLET PO (08:20)
[2023-06-09 11:13] LABS: Glucose, Whole Blood 230 mg/dL (60-115)
--- NOTE | 2023-06-09 11:27 | P.F2F_ITS ---
Service Date Service Date: 06/09/23 Encounter Date of encounter: 06/09/23 Reasons for Services Signs and symptoms assessed: Dyspnea on Exertion,Gross Deconditioning, Impaired Bed Mobility, Impaired Gait Pattern, Impaired Safety ,Impaired Standing Balance, Impaired Transfer Ability, Impaired Trunk Control,Muscle Weakness Reason for physical therapy: home safety and mobility, therapeutic exercises, gait/transfer training, assess need for DME, ADL training and energy conservation MD Overseeing Care: Shelbi Perez Homebound: Leaving the home is medically contraindicated at this time without the asist of a device and/or another person due th the listed conditions above and below. Reason homebound: shortness of breath with minimal effort and weakness related to hospital stay Homebound supporting statement: Bed Mobility, Transfer Training,Gait Training, Therapeutic Activities, Therapeutic Exercise, Patient Education, Safety,Balance Certification: Based on the above findings, I certify that this patient is confined to the home and needs intermittent detention care, physical therapy and/or speech therapy, or continues to need occupational therapy. The patient is under my care, and I have initiated the establishment of the plan of care. The patient will be followed by a physician who will periodically review the plan of care. Time Spent With Patient Time: Total time managing care of this patient today ____ minutes.
--- NOTE | 2023-06-09 11:37 | PM.DS ---
DS: Providers Provider Date of Service: 06/09/23 Date of admission: 06/06/23 11:38 Date of discharge: 06/09/23 Primary care physician: Shelbi Perez MD DS: Diagnosis Discharge Diagnosis (1) Acute exacerbation of chronic obstructive pulmonary disease: Status: Acute (2) Morbid obesity: Status: Acute DS: Summary Hospital Course Hospital Course: from admission H+P by hospitalist Rajat Rosas, 06/06/23: 73-year-old female patient with a past medical history significant for hypertension, hyperlipidemia, diabetes mellitus, GERD, osteoarthritis, CKD3, osteo chondroma left femur history of COPD on 2 L of oxygen, history of obstructive sleep apnea on CPAP. She presents with severe days of increasing shortness of breath and wheezing despite repeat use of inhalers at home. CXR is unremarkable, and O2 saturation is within normal range. She is treated in the ED with bronchodilators by Neb, IV steroid, and is being admitted for exacerbation of COPD. 73yo F with HTN, HLD, DM2, GERD, OA, CKD3, osteochondroma of L femur, COPD on 2L home O2, and ALDO on CPAP who was admitted for COPD exacerbation. She was treated with IV methylprednisolone and nebulized bronchodilators with symptomatic improvement. Night-time CPAP and ongoing O2 @ 2L NC were continued. Short-term rehabilitation was recommended, but she refused. She was discharged home with VNA services and prescribed a prednisone taper. Time Attestation Total time managing care of this patient today: 35 mintues. Discharge coordination time: Greater than 30 minutes Quality: Safe Use of Opioids Does Pt have an Active Cancer Diagnosis on the Problem List?: No Quality: Stroke Does the patient have a stroke diagnosis?: No Physical Exam Vital Signs: Vital Signs: Last Vital Signs Temp 97.2 F 06/09/23 07:22 Pulse 87 06/09/23 07:22 Resp 20 06/09/23 07:22 BP 145/77 H 06/09/23 07:22 Pulse Ox 97 06/09/23 07:22 O2 Del Method Nasal Cannula 06/09/23 07:22 O2 Flow Rate 2 06/09/23 07:22 Oxygen Flow Rate 2 06/06/23 07:32 BMI result Body Mass Index 43.5 Gen: in no acute distress HEENT: sclera anicteric, moist mucus membranes Neck: supple Lungs: clear to auscultation bilaterally Heart: regular rate and rhythm, no murmurs Abd: soft, non-tender, non-distended, obese Ext: no edema Skin: warm/well-perfused Neuro: alert and oriented x3, no focal findings Psych: appropriate affect DS: Data Data Completed and Pending Completed studies during hospitalization [Text1]: Laboratory Results WBC 12.0 X10*3/uL (4.8-10.8) H 06/06/23 07:56 RBC 4.13 X10*6/uL (4.20-5.50) L 06/06/23 07:56 Hgb 11.7 g/dl (12.0-16.0) L 06/06/23 07:56 Hct 36.8 % (37.0-47.0) L 06/06/23 07:56 MCV 89.1 fL (80.0-98.0) 06/06/23 07:56 MCH 28.3 pg (27.0-33.0) 06/06/23 07:56 MCHC 31.8 g/dl (31.0-35.0) 06/06/23 07:56 RDW 13.2 % (11.0-16.0) 06/06/23 07:56 Plt Count 208 X10*3/uL (160-400) 06/06/23 07:56 MPV 11.5 fL (9.4-12.3) 06/06/23 07:56 Immature Gran % (Auto) 0.4 % (0.0-0.4) 06/06/23 07:56 Neut % (Auto) 60.7 % (45-73) 06/06/23 07:56 Lymph % (Auto) 30.4 % (20-40) 06/06/23 07:56 Luce % (Auto) 5.2 % (2-11) 06/06/23 07:56 Eos % (Auto) 3.1 % (0-4) 06/06/23 07:56 Baso % (Auto) 0.2 % (0-2) 06/06/23 07:56 Lymph # (Auto) 3.7 X10*3/uL (1.2-4.9) 06/06/23 07:56 Luce # (Auto) 0.6 X10*3/uL (0.1-1.2) 06/06/23 07:56 Eos # (Auto) 0.4 X10*3/uL (0.0-0.4) 06/06/23 07:56 Baso # (Auto) 0.0 X10*3/uL (0.0-0.2) 06/06/23 07:56 Abs Immat Gran (auto) 0.05 X10*3/uL (0.00-0.03) H 06/06/23 07:56 Absolute Neuts (auto) 7.3 x10*3/uL (2.0-8.3) 06/06/23 07:56 Absolute Nucleated RBC 0.000 X10*3/uL (0.0-0.012) 06/06/23 07:56 Nucleated RBC % (auto) 0.0 /100WBC (0.0-0.2) 06/06/23 07:56 VBG pH 7.40 (7.32-7.43) 06/06/23 08:00 VBG pCO2 54 mmHg 06/06/23 08:00 VBG pO2 82 mmHg 06/06/23 08:00 VBG HCO3 34 mmol/L (22-26) H 06/06/23 08:00 VBG O2 Saturation 96.0 % 06/06/23 08:00 VBG Base Excess 7.9 mmol/L 06/06/23 08:00 Sodium 142 mmol/L (135-145) 06/06/23 07:56 Potassium 4.6 mmol/L (3.3-5.1) 06/06/23 07:56 Chloride 100 mmol/L (96-108) 06/06/23 07:56 Carbon Dioxide 30 mmol/L (22-29) H 06/06/23 07:56 Anion Gap 17 (12-20) 06/06/23 07:56 BUN 19 mg/dL (9-16) H 06/06/23 07:56 Creatinine 1.64 mg/dL (0.5-1.4) H 06/06/23 07:56 Estim Creat Clear Calc 38.4 06/06/23 07:56 Estimated GFR 31 06/06/23 07:56 POC Glucose 230 mg/dL (60-115) H 06/09/23 11:09 Random Glucose 205 mg/dL (60-115) H 06/06/23 07:56 Lactic Acid 2.0 mmol/L (0.5-2.0) 06/06/23 07:56 Calcium 9.6 mg/dL (8.4-10.2) 06/06/23 07:56 Magnesium 1.8 mg/dL (1.6-2.6) 06/06/23 07:56 Total Bilirubin 0.3 mg/dL (0.0-1.0) 06/06/23 07:56 Direct Bilirubin 0.1 mg/dL (0.0-0.5) 06/06/23 07:56 AST 25 U/L (5-31) 06/06/23 07:56 ALT 19 U/L (0-31) 06/06/23 07:56 Alkaline Phosphatase 39 U/L (39-117) 06/06/23 07:56 Troponin I High Sens < 2.7 ng/L (<3.5-17.0) 06/06/23 07:56 B-Natriuretic Peptide < 10 pg/mL (<100) 06/06/23 07:56 Total Protein 7.3 g/dL (6.5-8.0) 06/06/23 07:56 Albumin 4.0 g/dL (3.5-5.0) 06/06/23 07:56 Procalcitonin 0.07 ng/mL 06/06/23 07:56 Urine Color Yellow 06/07/23 22:15 Urine Appearance Clear 06/07/23 22:15 Urine pH 6.0 (5.0-9.0) 06/07/23 22:15 Ur Specific [place] 1.025 (1.005-1.025) 06/07/23 22:15 Urine Protein Negative mg/dL (Neg-Trace) 06/07/23 22:15 Urine Glucose (UA) >=1000 mg/dL (Negative) H 06/07/23 22:15 Urine Ketones Negative mg/dL (Negative) 06/07/23 22:15 Urine Blood Negative (Negative) 06/07/23 22:15 Urine Nitrite Negative (Negative) 06/07/23 22:15 Ur Leukocyte Esterase Negative (Negative) 06/07/23 22:15 Urine RBC 0-2 /HPF (0-2) 06/07/23 22:15 Urine WBC 0-5 /HPF (0-5) 06/07/23 22:15 Ur Squamous Epith Cells 11-20 /HPF (0-2) 06/07/23 22:15 Urine Bacteria None Seen (None Seen) 06/07/23 22:15 Hyaline Casts 0-2 /LPF (0-2) 06/07/23 22:15 Urine Yeast Present 06/07/23 22:15 Influenza Type A (PCR) NEGATIVE (Negative) 06/06/23 07:56 Influenza Type B (PCR) NEGATIVE (Negative) 06/06/23 07:56 RSV RNA Qual (PCR) NEGATIVE (Negative) 06/06/23 07:56 SARS-CoV-2 RNA (RT-PCR) NEGATIVE (Negative) 06/06/23 07:56 Impressions Chest X-Ray 06/06/23 08:25 IMPRESSION: No acute cardiopulmonary process seen. Labs on day of discharge: Laboratory Results - last 24 hr 06/08/23 06/08/23 06/09/23 16:11 20:14 07:25 POC Glucose 400 H* 382 H* 307 H 06/09/23 11:09 POC Glucose 230 H Preliminary micro results at discharge 06/06/23 08:32 Blood Culture - Preliminary Blood - Venous No growth after 48 hours. 06/06/23 07:56 Blood Culture - Preliminary Blood - Venous No growth after 48 hours. Discharge Plan Discharge Anticipated Discharge Date/Time: 06/09/23 13:17 Patient Disposition: Home Health Service Discharge Diagnosis: COPD exacerbation Referrals: Shelbi Perez MD [Primary Care Provider] - 1 Week Discharge Medications: New lidocaine [Lidocaine Pain Relief] 4 % Adhesive Patch,Medicated 1 patch transdermal DAILY Qty: 30 0RF Protocol: Apply to: Apply to: back prednisone 10 mg tablet See Rx Instructions .ROUTE .COMPLEX Qty: 20 0RF Rx Instructions: 40 mg daily x 2 days, then 30 mg daily x 2 days, then 20 mg daily x 2 days, then 10 mg daily x 2 days Continued (DME) lancets 28 gauge misc See Rx Instructions topical TID Qty: 100 3RF Rx Instructions: once a day (DME) FreeStyle Lite Strips Strip See Rx Instructions .Route Rx Instructions: Use to check blood sugar twice daily and when having symptoms of hypo/hyperglycemia (DME) diaper,brief,adult,disposable Misc See Rx Instructions .Route Qty: 64 5RF Rx Instructions: Use for stress incontinence albuterol sulfate [ProAir HFA] 90 mcg/actuation HFA aerosol inhaler 2 puff inhalation Q4-6H PRN (Reason: shortness of breath or wheezing) 30 Days Qty: 8.5 2RF (DME) lancets [OneTouch Delica Lancets] 30 gauge misc See Rx Instructions .Route Qty: 100 2RF Rx Instructions: Use to check blood sugar twice daily and when having symptoms of hypo/hyperglycemia (DME) blood-glucose meter [Massage EnvyTouch Ultra2 Meter] Misc See Rx Instructions .Route Qty: 1 0RF Rx Instructions: Use to check blood sugar twice daily and when having symptoms of hypo/hyperglycemia montelukast 10 mg tablet 10 mg PO DAILY Qty: 90 1RF (DME) pen needle, diabetic [BD Ultra-Fine Mini Pen Needle] 31 gauge x 3/16 needle See Rx Instructions .Route Qty: 100 2RF Rx Instructions: Use to administer insulin twice daily amlodipine [Norvasc] 5 mg tablet 5 mg PO DAILY 30 Days Qty: 90 0RF Levemir FlexTouch U100 Insulin 100 unit/mL (3 mL) insulin pen 20 unit subcut DAILY 90 Days Qty: 18 3RF (DME) OneTouch Ultra Test Strip See Rx Instructions .Route Qty: 100 2RF Rx Instructions: Use to check blood sugar twice daily and when having symptoms of hypo/hyperglycemia (DME) walker Misc See Rx Instructions .Route Qty: 1 0RF Rx Instructions: Wheeled walker with seat and brakes (DME) adult diapers large large See Rx Instructions .Route .MEDSUPPLY Qty: 100 6RF Rx Instructions: twice a day atorvastatin 80 mg tablet 80 mg PO DAILY 90 Days Qty: 90 0RF (DME) Shower Chair Misc See Rx Instructions .Route Qty: 1 0RF Rx Instructions: Shower chair with back and arm rests (DME) AeroEclipse II Nebulizer Misc See Rx Instructions .ROUTE .MEDSUPPLY Qty: 1 0RF Rx Instructions: As directed hydroxyzine pamoate 25 mg capsule 25 mg PO BID trazodone 100 mg tablet 200 mg PO BEDTIME aspirin 81 mg Tablet,Chewable 81 mg PO DAILY cholecalciferol (vitamin D3) 25 mcg (1,000 unit) Capsule 25 mcg PO DAILY albuterol sulfate 2.5 mg /3 mL (0.083 %) solution for nebulization 2.5 mg inhalation Q4-6H PRN (Reason: shortness of breath or wheezing) Qty: 75 0RF multivitamin Tablet 1 tab PO DAILY citalopram 10 mg tablet 10 mg PO DAILY ropinirole 2 mg tablet 2 mg PO BID gabapentin 300 mg capsule 300 mg PO QAM insulin aspart U-100 [Novolog FlexPen U-100 Insulin] 100 unit/mL (3 mL) insulin pen See Protocol subcut TID Protocol: Insulin Correction Scale Less than or equal to 110 ---- Give (units): 0 111 to 150 Give (units): 0 151 to 200 Give (units): 2 201 to 250 Give (units): 4 251 to 300 Give (units): 6 301 to 350 Give (units): 8 Greater than 350 Give (units): 10 Call MD if Blood Glucose > : 350 lisinopril 5 mg tablet 5 mg PO DAILY gabapentin 300 mg capsule 900 mg PO BEDTIME Rx Instructions: pt takes 1 300mg in am and pm and 3 and bedtime (DME) pen needle, diabetic 31 gauge x 3/16 needle See Rx Instructions subcut TID Qty: 1200 1RF Rx Instructions: 4x a day bupropion HCl 150 mg tablet extended release 24 hr 150 mg PO DAILY (DME) oxygen-air delivery systems Device See Rx Instructions .ROUTE .MEDSUPPLY Qty: 1 Rx Instructions: As directed pramipexole 0.5 mg tablet 0.5 mg PO BID Discharge Orders: Discharge Order (Routine); Ordered 06/09/23 Ordered By: Jason Boyle Diet: Diabetic diet Activity on Discharge: As tolerated Stand Alone Forms: Patient Portal Discharge page Care Plan Goals: respiratory health Health Concerns: COPD exacerbation Plan of Treatment: use home oxygen 2L as prescribed previously prednisone taper: 40 mg daily x 2 days, then 30 mg daily x 2 days, then 20 mg daily x 2 days, then 10 mg daily x 2 days continue albuterol inhaler/nebs for rescue Please follow up with your primary care doctor within 1 week. Return to the hospital if you experience recurrent or worsening symptoms. Assessment: See Discharge Summary.
[2023-06-09 11:54] LABS: Glucose, Whole Blood 215 mg/dL (60-115)
[2023-06-09] MEDS: Enoxaparin Sodium 40 MG/0.4 ML SYRINGE SUBCUT (12:05)
--- NOTE | 2023-06-09 12:12 | MHC.CM.PN ---
pt being dcd home pt declined str spoke w/ benjamín singh who approved hvns pt also has training generalist [facility] and mow
== END 2023-06-09 15:51 | disposition home health service (06) | DRG 191 ==
LOC: HO.ED 09:54 → HO.EDOVER 11:39 → HO.S3 15:37
PROVIDERS: Admitting Provider Internal Medicine; Emergency Provider Emergency Medicine; PCP Internal Medicine; Visit Provider Family Medicine
DX: J44.1 Chronic obstructive pulmonary disease with (acute) exacerbation (principal); J96.11 Chronic respiratory failure with hypoxia; Z68.41 Body mass index [BMI] 40.0-44.9, adult; F39 Unspecified mood [affective] disorder; G25.81 Restless legs syndrome; I12.9 Hypertensive chronic kidney disease with stage 1 through stage 4 chronic kidney disease, or unspecified chronic kidney disease; E78.5 Hyperlipidemia, unspecified; E66.01 Morbid (severe) obesity due to excess calories; E11.42 Type 2 diabetes mellitus with diabetic polyneuropathy; N18.30 Chronic kidney disease, stage 3 unspecified; E11.22 Type 2 diabetes mellitus with diabetic chronic kidney disease; Z20.822 Contact with and (suspected) exposure to COVID-19; Z79.4 Long term (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 insulin; Z79.82 Long term (current) use of aspirin; Z79.899 Other long term (current) drug therapy
CPT/HCPCS: 0241U; 36415; 71045; 80048; 80076; 81001; 82803; 82947; 83605; 83735; 83880; 84145; 84484; 85025; 87040; 93005; 94640; 97162; 99285; J0696; J1650; J2920; J2930

== ENCOUNTER → 2023-06-06 08:12 | Outpatient (BNV) | payer OTHER, SELFPAY | PROVIDERS: Emergency Provider Emergency Medicine; Visit Provider Internal Medicine | DX: J44.1 Chronic obstructive pulmonary disease with (acute) exacerbation (principal); E66.01 Morbid (severe) obesity due to excess calories; Z68.41 Body mass index [BMI] 40.0-44.9, adult | CPT/HCPCS: 99223; 99232; 99239; G0180 ==

== ENCOUNTER 2023-06-17 08:27 | Outpatient (REF) | payer MEDICARE, SELFPAY ==
--- NOTE | ~2023-06-17 | XR_ITS ---
EXAMINATION: XR WRIST, LEFT CLINICAL INFORMATION: Pain COMPARISON: None available. TECHNIQUE: PA, lateral, and oblique views of the left wrist. FINDINGS: No acute visible fracture or dislocation. Moderate multi joint arthritic changes greatest at the first carpometacarpal joint, radiocarpal joint and fifth distal interphalangeal joints. Cortical irregularity along the distal radial diaphysis and mid ulnar diaphysis, nonspecific though may reflect sequela of remote trauma. Joint spaces and alignment are otherwise maintained. Soft tissues are unremarkable. XR/XR wrist LT min 3V IMPRESSION: 1. No acute visible fracture or dislocation. 2. Moderate multi joint arthritic changes greatest at the first carpometacarpal joint, radiocarpal joint and fifth distal interphalangeal joints. 3. Cortical irregularity along the distal radial diaphysis and mid ulnar diaphysis, nonspecific though may reflect sequela of remote trauma.
== END 2023-06-17 08:28 | disposition home or self-care (01) ==
LOC: HO.HOSX 08:27
PROVIDERS: PCP Internal Medicine; Visit Provider Physical Medicine & Rehabilitation
DX: M25.532 Pain in left wrist (principal); Z79.899 Other long term (current) drug therapy
CPT/HCPCS: 73110; 99202

== ENCOUNTER 2023-06-17 08:27 | Outpatient (AMB) | payer MEDICARE, SELFPAY ==
--- NOTE | 2023-06-17 08:35 | A.OFFVIS_ITS ---
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 States pain started about 1-2 months ago. No injury she can recall. States pain is mainly on her dorsum aspect of wrist. States she has a small lump and recently ts has increase inpain. Allergies adhesive tape [ADHESIVE TAPE] Allergy (Intermediate, Verified 06/17/23 08:39) RASH trimethobenzamide [From TIGAN] Allergy (Mild, Verified 06/17/23 08:39) NAUSEA environmental Allergy (Intermediate, Uncoded 06/17/23 08:39) Nasal congestion Medication List - Last Reconciled 06/17/23 by Hansa De Souza MD [adult diapers large twice a day] albuterol sulfate 2.5 mg (3 mL) inhalation Q4-6H PRN albuterol sulfate 90 mcg/actuation (ProAir HFA) 2 puffs inhalation Q4-6H PRN 30 days amlodipine (Norvasc) 5 mg PO DAILY 30 days aspirin 81 mg PO DAILY atorvastatin 80 mg PO DAILY 90 days blood sugar diagnostic (FreeStyle Lite Strips) Use to check blood sugar twice daily and when having symptoms of hypo/hyperglycemia blood sugar diagnostic ([employer] Ultra Test strips) Use to check blood sugar twice daily and when having symptoms of hypo/hyperglycemia blood-glucose meter (NetbooksTouch Ultra2 Meter) Use to check blood sugar twice daily and when having symptoms of hypo/hyperglycemia bupropion HCl 150 mg PO DAILY cholecalciferol (vitamin D3) 25 mcg PO DAILY citalopram 10 mg PO DAILY diaper,brief,adult,disposable Use for stress incontinence gabapentin 300 mg PO QAM gabapentin 900 mg PO BEDTIME hydroxyzine pamoate 25 mg PO BID insulin aspart U-100 (Novolog FlexPen U-100 Insulin aspart) See Protocol sliding scale doses subcut TID insulin detemir U-100 (Levemir FlexTouch U-100 Insulin) 20 units (0.2 mL) subcut DAILY 90 days lancets once a day lancets (NetbooksTouch Delica Lancets) Use to check blood sugar twice daily and when having symptoms of hypo/hyperglycemia lidocaine 4% (Lidocaine Pain Relief) 1 patch See Protocol transdermal DAILY lisinopril 5 mg PO DAILY montelukast 10 mg PO DAILY multivitamin 1 tab PO DAILY nebulizers (AeroEclipse II Nebulizer) As directed oxygen-air delivery systems As directed pen needle, diabetic (BD Ultra-Fine Mini Pen Needle) Use to administer insulin twice daily pen needle, diabetic 4x a day pramipexole 0.5 mg PO BID prednisone 40 mg daily x 2 days, then 30 mg daily x 2 days, then 20 mg daily x 2 days, then 10 mg daily x 2 days ropinirole 2 mg PO BID Shower Chair Shower chair with back and arm rests trazodone 200 mg PO BEDTIME walker Wheeled walker with seat and brakes HPI HPI Comments History of Present Illness Details History of hypertension, hyperlipidemia, diabetes mellitus, GERD, osteoarthritis, CKD3, osteochondroma left femur, history of COPD on 2 L of oxygen. Not on O2 as of today, says not needing it now. History of neuropathy from DM, says she does get numbness on hands and tingling on legs. 4 months of left wrist pain. Denies pain . Says noted enlargement of bone on wrist. if she turns the wrist, it would hurt. bump on left forearm, 7 months, already seen by clay transporter. Not tried any treatment at all. [facility] Medical History (Updated 06/17/23 @ 09:18 by Hansa De Souza MD) COPD (chronic obstructive pulmonary disease) Respiratory failure with hypoxia Urinary tract infection Hypoxemia Morbid obesity CKD (chronic kidney disease) Anemia COPD exacerbation Allergic rhinitis ALDO (obstructive sleep apnea) Obesity (BMI 30-39.9) Constipation due to opioid therapy Osteoarthritis of left knee Hx SBO Hyperlipidemia CPAP (continuous positive airway pressure) dependence History of adrenal adenoma Osteochondroma of left femur Arthritis Diabetes Elevated cholesterol History of restless legs syndrome History of diverticulitis GERD (gastroesophageal reflux disease) Surgical History (Updated 06/10/23 @ 00:03 by Farzad Hays) H/O excision of mass History of oophorectomy History of cholecystectomy History of appendectomy History of arthroscopy of left knee History of partial colectomy Hx of cataract extraction H/O exploratory laparotomy H/O colonoscopy History of surgery History of hysterectomy Family History Father HTN (hypertension) Diabetes mellitus Mother HTN (hypertension) Liver cancer Social History 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 Other:: EX Housing: Apartment Are you a primary doggy daycare activities director to a significant other at home: No Do you presently have visiting nurse or other home services: No Alcohol intake: never Comment: PT SLEEPING Patient Tobacco Use Status: Never used Tobacco e-Cigarette/Vaping Use: Never Used Second Hand Smoke Exposure: No Advance Directives Date on File: 07/08/21 service: No Current occupational status: retired Cognitive needs: No Hearing needs: No Vision needs: No Female Reproductive History Menstrual Age of Menarche: 13 Review of Systems Const All systems reviewed & are unremarkable except as noted in HPI and below Physical Exam Constitutional: Patient appears to be in no acute distress, well nourished and well developed. MSK: Ganglion cyst left forearm. Nontender. No intrinsic hand weakness noted. No atrophy noted. Eladio test negative. Tender on left CMC joint and left radial wrist. Carpal compression test negative. Tinel sign negative. Strength is 5/5 in all muscle groups tested. No increased tone noted. Results Reviewed Results Reviewed: I reviewed records from the following: ER, hospitalist PCP Last HbA1c 7.8 Assessment & Plan Assessment & Plan (1) Arthritis: Code(s): M19.90 - Unspecified osteoarthritis, unspecified site Plan Suspect arthritis affecting CMC joint or wrist. Will put on a resting wrist brace. We will do left wrist x-rays today. Assessment and plan discussed with patient, and patient was agreeable. All questions were answered thoroughly. Hansa De Souza MD, ENRIQUETA Board Certified, [place] [employer] and [employer] (ABPMR) Board Certified, [place] [employer] Electrodiagnostic [employer] (ABEM) Orders: Orders XR wrist LT min 3V Today M19.90 - Unspecified osteoarthritis, unspecified site, M25.539 - Pain in unspecified wrist Coding Level of Care Code New Pt Level 4 (64035) Diagnoses Arthritis M19.90
== END 2023-06-17 09:21 | disposition home or self-care (01) ==
PROVIDERS: PCP Internal Medicine; Visit Provider Physical Medicine & Rehabilitation
DX: M19.90 Unspecified osteoarthritis, unspecified site (principal)
CPT/HCPCS: 99204

== ENCOUNTER 2023-06-27 12:03 | Emergency (ER) | payer OTHER, MEDICARE, SELFPAY ==
[2023-06-27] VITALS (7 sets, daily range): BP systolic 119–140; BP diastolic 53–99; PULSE 89–99; RESP 12–16; TEMP 36.2–36.8; O2SAT 94–99; BMI 39.1
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
--- NOTE | 2023-06-27 13:01 | ECG_ITS ---
Test Reason : CHEST PAIN Blood Pressure : / mmHG Vent. Rate : 090 BPM Atrial Rate : 090 BPM P-R Int : 158 ms QRS Dur : 088 ms QT Int : 376 ms P-R-T Axes : 064 041 042 degrees QTc Int : 459 ms Normal sinus rhythm Normal ECG When compared with ECG of 06-JUN-2023 07:57, No significant change was found Referred By: Lorraine Peacock Electronically Signed By:Isaías Denise
[2023-06-27 14:10] LABS: MANUAL DIFF FLAG NO
[2023-06-27 14:11] LABS: Basophils Percent Auto 0.2 % (0-2); Eosinophils Absolute Auto 0.3 X10*3/uL (0.0-0.4); Eosinophils Percent Auto 3.1 % (0-4); Hematocrit 35.1 % (37.0-47.0); Hemoglobin 11.1 g/dl (12.0-16.0); Imm Gran Abs Auto 0.04 X10*3/uL (0.00-0.03); Imm Gran Pct Auto 0.5 % (0.0-0.4); Lymphocytes Absolute Auto 2.1 X10*3/uL (1.2-4.9); Mean Corpuscular HGB Conc 31.6 g/dl (31.0-35.0); Mean Corpuscular Hemoglobin 28.4 pg (27.0-33.0); Mean Corpuscular Volume 89.8 fL (80.0-98.0); Mean Platelet Volume 11.4 fL (9.4-12.3); Monocytes Absolute Auto 0.5 X10*3/uL (0.1-1.2); Monocytes Percent Auto 5.4 % (2-11); Neutrophils Absolute Auto 5.5 x10*3/uL (2.0-8.3); Neutrophils Percent Auto 65.8 % (45-73); Platelet Count 179 X10*3/uL (160-400); Red Blood Count 3.91 X10*6/uL (4.20-5.50); Red Cell Distribution Width 13.3 % (11.0-16.0); White Blood Count 8.4 X10*3/uL (4.8-10.8)
[2023-06-27 14:24] LABS: Prothrombin Time 11.9 SEC (11.1-13.3)
[2023-06-27 14:26] LABS: Alanine Aminotransferase 32 U/L (0-31); Albumin Level 3.8 g/dL (3.5-5.0); Alkaline Phosphatase 37 U/L (39-117); Anion Gap 13 (12-20); Aspartate Amino Transferase 31 U/L (5-31); Bilirubin Direct 0.2 mg/dL (0.0-0.5); Bilirubin Total 0.4 mg/dL (0.0-1.0); Blood Urea Nitrogen 23 mg/dL (9-16); Calcium 9.5 mg/dL (8.4-10.2); Carbon Dioxide 34 mmol/L (22-29); Chloride 101 mmol/L (96-108); Estimated Glomerular Filt Rate 32; Glucose Random 119 mg/dL (60-115); Lipase 15 U/L (8-78); Sodium 144 mmol/L (135-145); Total Protein 6.7 g/dL (6.5-8.0)
[2023-06-27 14:27] LABS: Partial Thromboplastin Time 28.6 SEC (26.0-36.4)
[2023-06-27 14:32] LABS: Troponin-I High Sensitivity 3.1 ng/L (<3.5-17.0)
[2023-06-27] MEDS: 0.9 % Sodium Chloride 1,000 ML 999 ML IV (14:36)
[2023-06-27] MEDS: iohexoL 350 MG/ML 100 ML INFUS..BTL 85 ML IV (14:49)
[2023-06-27] MEDS: fentaNYL citrate/PF 100 MCG/2 ML VIAL 50 MCG IVPUSH (16:10)
== END 2023-06-27 18:00 | disposition home or self-care (01) ==
PROVIDERS: Physician Assistant Medical; Emergency Provider Emergency Medicine; PCP Internal Medicine
DX: S13.4XXA Sprain of ligaments of cervical spine, initial encounter (principal); V43.52XA Car driver injured in collision with other type car in traffic accident, initial encounter; E10.22 Type 1 diabetes mellitus with diabetic chronic kidney disease; N18.30 Chronic kidney disease, stage 3 unspecified; J44.9 Chronic obstructive pulmonary disease, unspecified; R26.81 Unsteadiness on feet; E66.9 Obesity, unspecified; Z68.39 Body mass index [BMI] 39.0-39.9, adult; Y93.89 Activity, other specified; Y92.414 Local residential or business street as the place of occurrence of the external cause; Y99.9 Unspecified external cause status; R93.89 Abnormal findings on diagnostic imaging of other specified body structures; Z99.81 Dependence on supplemental oxygen; Z79.899 Other long term (current) drug therapy
CPT/HCPCS: 36415; 70450; 70486; 71260; 72125; 73562; 73590; 74177; 80048; 80076; 83690; 84484; 85025; 85610; 85730; 93005; 96361; 96374; 99285; J3010; Q9967

== ENCOUNTER → 2023-06-27 13:01 | Outpatient (BNV) | payer MEDICARE, SELFPAY | PROVIDERS: Emergency Provider Emergency Medicine; PCP Internal Medicine; Visit Provider Internal Medicine Cardiovascular Disease | DX: R07.9 Chest pain, unspecified (principal) | CPT/HCPCS: 93010 ==

== ENCOUNTER 2023-06-30 12:04 | Outpatient (AMB) | payer OTHER, MEDICARE, SELFPAY ==
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
[2023-06-30 12:09] VITALS: BP 138/86; PULSE 101; O2SAT 95; BMI 44.2
== END 2023-06-30 13:38 | disposition home or self-care (01) ==
PROVIDERS: PCP Internal Medicine; Visit Provider Internal Medicine
DX: S06.0X0A Concussion without loss of consciousness, initial encounter (principal); S00.83XA Contusion of other part of head, initial encounter; S60.221A Contusion of right hand, initial encounter; Z04.3 Encounter for examination and observation following other accident; M25.561 Pain in right knee; M25.562 Pain in left knee; V89.2XXA Person injured in unspecified motor-vehicle accident, traffic, initial encounter
CPT/HCPCS: 99215

== ENCOUNTER 2023-07-03 00:13 | Emergency (ER) | payer OTHER, MEDICARE, SELFPAY ==
[2023-07-03 00:21] VITALS: BP 138/62; PULSE 84; RESP 17; TEMP 36.5; O2SAT 96
[2023-07-03 00:25] VITALS: BP 138/62; BP 180/100; PULSE 85; PULSE 94; RESP 20; TEMP 36.7; O2SAT 97; O2SAT 98; BMI 43.6
--- NOTE | 2023-07-03 00:31 | ECG_ITS ---
Test Reason : PAIN Blood Pressure : / mmHG Vent. Rate : 081 BPM Atrial Rate : 081 BPM P-R Int : 162 ms QRS Dur : 086 ms QT Int : 380 ms P-R-T Axes : 064 035 039 degrees QTc Int : 441 ms Normal sinus rhythm Normal ECG When compared with ECG of 27-JUN-2023 13:00, No significant change was found Referred By: Roderick Dillard Electronically Signed By:RAMSEY ZARATE MD
[2023-07-03] MEDS: oxyCODONE HCl Immed Release 5 MG TABLET PO ×2 (00:44→02:09)
--- OUTSIDE RECORDS SUMMARY | 2023-07-03 01:11 | XMS_ITS | Patient Health Record ---
Author Name Unknown [facility] Address [address] [place] [address] Care Team Providers Care Business Management Manager Name Role Phone Chris BROWNE, [facility] Primary Care Provider Nik Horner Unavailable [phone] ALLERGIES No Known Allergies REASON FOR REFERRAL No Information MEDICATIONS Medication SIG (Take, Route, Frequency, Duration) Notes Start Date End Date Status D3-1000 Active Ammonium Lactate 12 % 1 application to affected area Externally to feet Twice a day for 30 days Active buPROPion HCl ER (XL) 150 MG 1 tablet in the morning Oral Active metFORMIN HCl 500 MG Oral Once a day Not-Taking Levemir FlexTouch 100 UNIT/ML Subcutaneous for 37 Active Gabapentin 300 MG Oral Once a day Active Myrbetriq 25 MG Oral for 30 Ac tive Lidocaine 5 % External for 30 Active rOPINIRole HCl 1 MG 2 tablet Oral Once a day Active Montelukast Sodium 10 MG Oral Once a day Active Atorvastatin Calcium 80 MG Oral Once a day Active traZODone HCl 100 MG Oral Once a day Active Destin Aspirin 81 1 tablet Once a day Active glipiZIDE ER 2.5 MG TAKE 1 TABLET BY MARLO TH EVERY DAY Oral for 30 Active Extra Depth Orthopedic Shoes (1 Pair) with Customized Heat Molded Multidensity Innersoles (3 Pair) as directed Dx: NIDDM (E11.9), Hammertoe Foot Deformity (M20.41,M20.42), Preulcerative Skin Lesion(s) (L85.1) Active IMMUNIZATIONS Vaccine Route Administration Date Status Comme nts COVID-19 [employer] Vaccine Unknown 05/10/2021 Administered 1st 08/21/2020 2nd 09/11/2020 Influenza Unknown 03/13/2021 Administered SOCIAL HISTORY Tobacco Use: Social History Observation Description Date Details (start date - stop date) Never Smoker NA - NA Sex Assigned At : Social History Observation Description Sex Assigned At Unknown Tobacco Use/Smoking Question Answer Notes Are you a: nonsmoker Additional Findings: Tobacco Non-User Current no n-smoker Alcohol Screen Question Answer Notes Did you have a drink containing alcohol in the p ast year? No Points 0 Interpretation Negative Tobacco use other than smoking: Question Answer Notes Are you an other tobacco user? No PROBLEMS Problem Type ICD Code Onset Dates Problem Status W/U Status Risk SNOMED Code Notes Problem Other hammer toe(s) (acquired), right foot (M20.41) Active confirmed Acquired hammer toe of right foot (038760270812371 5) Problem Other hammer toe(s) (acquired), left foot (M20.42) Active confirmed Acquired hamme r toe of left foot ([id number] 3) Problem Type 2 diabetes mellitus without complication (E11.9) Active confirmed Type 2 diabetes mellitus without complication (319834296) Encounters Encounter Location Date Provider Diagnosis [facility] [address] 07/04/2022 Nik Hernandez [facility] [address] [facility] [address] [facility] [address] 07/29/2022 Nik Hernandez PLAN OF TREATMENT Pending Test Test Name Order Date [id number] NAIL, 6 OR MORE 09/21/2020 [id number] NAIL, 6 OR MORE 12/21/2020 [id number] NAIL, 6 OR MORE 05/17/2021 [id number] NAIL, 6 OR MORE 08/23/2021 [id number] NAIL, 6 OR MORE 01/28/2022 [id number] NAIL, 6 OR MORE 05/11/2020 Insurance Providers Payer Name Payer Address Payer Phone Subscriber Number Group Number Insured Name Patient Relationship to Insured Coverage Start Date Coverage End Date Medicare National [employer] [address] [place] [address] [id number] [place] Self - patient is the insured MEDICAL (GENERAL) HISTORY Medical History History ICD Code Lung disease COPD CAD Depression Restless Leg type II diabetes Surgical History Surgery Date(Month/Year) teeth extraction Surgery 2019 Left Knee Replacement Hospitalization History Reason Date(Month/Year) [facility] - pneumonia/ high sugars 15 days 2 [facility] fell about a week 01/2022
--- OUTSIDE RECORDS SUMMARY | 2023-07-03 01:12 | XMS_ITS | Patient Health Record ---
Author Name Unknown Organization [facility] Address [address] [place] [address] Care Team Providers Care Cable Tool Driller Name Role Phone José Manuel Bowman MD Primary Care Provider UnavailEllis Bernabe Unavailable [phone] Gladys BROWNE, Wallace Unavailable Unavailable ALLERGIES Allergen (clinical drug ingredient) Drug/Non Drug Allergy documented on EMR Reaction Allergy Type Onset Date Status trimethobenzamide Tigan Unknown Drug Allergy Active REASON FOR REFERRAL No Information SOCIAL HISTORY Sex Assigned At : Social History Observation Description Sex Assigned At Unknown PROBLEMS Problem Type ICD Code Onset Dates Problem Status W/U Status Risk SNOMED Code Notes Problem Ulcerative colitis (K51.90) Active confirmed Ulcerative colitis (90944903) PLAN OF TREATMENT No Information Insurance Providers Payer Name Payer Address Payer Phone Subscriber Number Group Number Insured Name Patient Relationship to Insured Coverage Start Date Coverage End Date MEDICARE OF [place] [address] [place] [id number] MENDY DESMOND Self - patient is the insured MEDICAID OF [facility] [address] [place] [address] [phone] [id number] MENDY DESMOND Self - patient is the insured MEDICAL (GENERAL) HISTORY Medical History History ICD Code colonoscopy 11-09-2006 gerd Surgical History Surgery Date(Month/Year) cholecystectomy hysterectomy with oophorectomy D&C and tubal ligation
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
--- NOTE | 2023-07-03 01:51 | MHC.EDTECH ---
call out to [facility] at 0152 to book transport for pt back home, estimated eta given was 0300
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
== END 2023-07-03 03:15 | disposition home or self-care (01) ==
PROVIDERS: Emergency Provider Emergency Medicine; PCP Internal Medicine
DX: M54.50 Low back pain, unspecified (principal); R07.89 Other chest pain; J44.9 Chronic obstructive pulmonary disease, unspecified; Z99.81 Dependence on supplemental oxygen
CPT/HCPCS: 93005; 99284; 99285

== ENCOUNTER → 2023-07-03 00:31 | Outpatient (BNV) | payer MEDICARE, SELFPAY | PROVIDERS: Emergency Provider Emergency Medicine; PCP Internal Medicine; Visit Provider Internal Medicine Cardiovascular Disease | DX: M54.50 Low back pain, unspecified (principal); R10.9 Unspecified abdominal pain | CPT/HCPCS: 93010 ==

== ENCOUNTER 2023-07-22 10:45 | Outpatient (AMB) | payer MEDICARE, SELFPAY ==
[2023-07-22 11:04] VITALS: BP 112/52; PULSE 112; O2SAT 93; BMI 40.3
--- NOTE | 2023-07-22 11:04 | A.OFFVIS_ITS ---
Intake Vital Signs 07/22/23 11:04 Height 5 ft 2 in Weight 220 lb 7.396 oz BMI 40.3 BP 112/52 L Blood Pressure Location Lt brachial Position Sitting Pulse 112 H Pulse Source Pulse Oximeter Pulse Oximetry (%) 93 Oxygen Delivery Method Nasal Cannula Oxygen Flow Rate 2 Intake Visit Reasons: COPD Intake Note: pt is here for follow up and states her breathing is labored with some chest heaviness. Had ER visit. Business Intelligence Etl Developer Required: No Allergies adhesive tape [ADHESIVE TAPE] Allergy (Intermediate, Verified 07/22/23 11:47) RASH trimethobenzamide [From TIGAN] Allergy (Mild, Verified 07/22/23 11:47) NAUSEA environmental Allergy (Intermediate, Uncoded 07/22/23 11:47) Nasal congestion Medication List - Last Reconciled 07/22/23 by Hong Frederick MD [adult diapers large Use up to 6/day] albuterol sulfate 2.5 mg (3 mL) inhalation Q4-6H PRN albuterol sulfate 90 mcg/actuation (ProAir HFA) 2 puffs inhalation Q4-6H PRN 30 days amlodipine (Norvasc) 5 mg PO DAILY 30 days aspirin 81 mg PO DAILY atorvastatin 80 mg PO DAILY 90 days blood sugar diagnostic (FreeStyle Lite Strips) Use to check blood sugar twice daily and when having symptoms of hypo/hyperglycemia blood sugar diagnostic (OneTouch Ultra Test strips) Use to check blood sugar twice daily and when having symptoms of hypo/hyperglycemia blood-glucose meter (OneTouch Ultra2 Meter) Use to check blood sugar twice daily and when having symptoms of hypo/hyperglycemia bupropion HCl 150 mg PO DAILY cholecalciferol (vitamin D3) 25 mcg PO DAILY citalopram 10 mg PO DAILY diaper,brief,adult,disposable Use for stress incontinence gabapentin 300 mg PO QAM hydroxyzine pamoate 25 mg PO BID insulin aspart U-100 (Novolog FlexPen U-100 Insulin aspart) See Protocol sliding scale doses subcut TID insulin detemir U-100 20 units (0.2 mL) subcut DAILY 90 days lancets once a day lancets (OneTouch Delica Lancets) Use to check blood sugar twice daily and when having symptoms of hypo/hyperglycemia lisinopril 5 mg PO DAILY montelukast 10 mg PO DAILY multivitamin 1 tab PO DAILY nebulizers (AeroEclipse II Nebulizer) As directed oxycodone 5 mg PO Q6H PRN oxygen-air delivery systems As directed pen needle, diabetic (BD Ultra-Fine Mini Pen Needle) Use to administer insulin twice daily pen needle, diabetic 4x a day pramipexole 0.5 mg PO BID ropinirole 2 mg PO BID Shower Chair Shower chair with back and arm rests trazodone 200 mg PO BEDTIME walker Wheeled walker with seat and brakes Do you need a note to return to daycare/school/sports/work: No HPI COPD HPI Details 73 YEARS OLD FEMALE, A KNOWN CASE OF SEV ERE OBSTRUCTIVE AIRWAY DI SORDER, AND HYPOXEMIA, ALONG WITH MULTIPLE COMORBIDITIES, SHE COMES TODAY FOR HER ROUTINE FOLLOW-UP AFTER 3 MONTHS. SHE HAS HAD NO RECENT RESPIRATORY INFECTION, AND DOES NOT SMOKE. SHE IS USING OXYGEN 24 HOURS A DAY, FOR OUTDOORS SHE USING POC . HOWEVER SHE IS A MOUTH BREATHER, AND IS NOT GETTING THE RIGHT AMOUNT OF O2. SO SHE WALKS INTO THE OFFICE EVEN WEARING THE OXYGEN, HER O2 SATS ARE QUITE LOW. AFTER SITTING DOWN AND CONCENTRATING ON BREATHING THROUGH THE NOSE O2 SAT DOES COME UP TO 92-93%. SHE HAS RECENTLY BEEN SEEN IN THE EMERGENCY ROOM BECAUSE OF CHEST AND BACK PAIN. HAD COMPLETE WORKUP, IT SHOWS DEGENERATIVE ARTHRITIS OF THE SPINE, NO SIGNIFICANT ABNORMALITY IN THE CHEST. [facility] Medical History COPD (chronic obstructive pulmonary disease) Respiratory failure with hypoxia Urinary tract infection Hypoxemia Morbid obesity CKD (chronic kidney disease) Anemia COPD exacerbation Allergic rhinitis ALDO (obstructive sleep apnea) Obesity (BMI 30-39.9) Constipation due to opioid therapy Osteoarthritis of left knee Hx SBO Hyperlipidemia CPAP (continuous positive airway pressure) dependence History of adrenal adenoma Osteochondroma of left femur Arthritis Diabetes Elevated cholesterol History of restless legs syndrome History of diverticulitis GERD (gastroesophageal reflux disease) Surgical History H/O excision of mass History of oophorectomy History of cholecystectomy History of appendectomy History of arthroscopy of left knee History of partial colectomy Hx of cataract extraction H/O exploratory laparotomy H/O colonoscopy History of surgery History of hysterectomy Family History Father HTN (hypertension) Diabetes mellitus Mother HTN (hypertension) Liver cancer Social History 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 Other:: EX Housing: Apartment Are you a primary manager critical care to a significant other at home: No Do you presently have visiting nurse or other home services: No Alcohol intake: never Comment: PT SLEEPING Patient Tobacco Use Status: Never used Tobacco e-Cigarette/Vaping Use: Never Used Second Hand Smoke Exposure: No Advance Directives Date on File: 07/08/21 service: No Current occupational status: retired Cognitive needs: No Hearing needs: No Vision needs: No Female Reproductive History Menstrual Age of Menarche: 13 Review of Systems Const All systems reviewed & are unremarkable except as noted in HPI and below Eyes Reports no additional complaints ENT Reports nasal congestion (Intermittent) Card Denies chest pain, Denies irregular heart rhythm, Reports leg edema and Reports dyspnea Resp Reports as per HPI and Reports dyspnea GI Reports no additional complaints Reports no additional complaints Musc Reports abnormal gait (Impaired gait due to weakness of lower extremities, has to use a walker), Reports back pain and Reports limited range of motion Skin/Breast Reports system reviewed and no additional complaints, except as documented Neuro Reports abnormal gait (Impaired gait due to weakness of lower extremities, has to use a walker) Endo Reports other (Being treated for diabetes mellitus with diabetic neuropathy) Physical Exam Vital Signs: Last Vital Signs Pulse 112 H 07/22/23 11:04 BP 112/52 L 07/22/23 11:04 Pulse Ox 93 07/22/23 11:04 Oxygen Delivery Method Nasal Cannula 07/22/23 11:04 Oxygen Flow Rate 2 07/22/23 11:04 BMI result Body Mass Index 40.3 Const General: comfortable (But very weak), no acute distress, alert and awake Orientation/consciousness: patient oriented x3 HEENT Head: Yes normal to inspection General nose exam: No nasal polyps present, No nasal discharge present and Other nasal findings present (Mild nasal congestion) Face and sinus: Yes sinuses nontender Mouth: oropharynx normal Throat: Yes posterior oropharynx normal Eyes General: appearance normal, both eyes and all related structures Neck Neck: Yes normal visual inspection, Yes no lymphadenopathy, Yes trachea midline and Yes no JVD Thyroid: Thyroid normal Chest Chest palpation & inspection: normal inspection of the chest, normal palpation of entire chest wall and no tenderness Resp Other: Percussion note is resonant, breath sounds are very decreased over the basilar areas. No audible wheezes rhonchi or creps. Cardio Palpation: normal PMI Rate: regular rate Rhythm: regular rhythm Heart sounds: no gallops and no murmurs GI Palpation (GI): Soft to palpation, nontender, No hepatosplenomegaly present, no masses and Other GI palpation findings present (Abdomen is obese and protuberant) Auscultation: normal bowel sounds Back/Spine/Pelvis Thoracic/Lumbar Spine: thoracic and lumbar spine normal to inspection and thoraco-lumbar ROM limited Skin General skin exam: no rashes or lesions noted Neuro General: patient oriented x3 and no focal motor deficits Cranial nerves: Yes CN's II-XII intact bilaterally Extrem General: Yes normal to inspection, Yes no calf tenderness, Yes edema (ONLY MINIMAL AT THIS TIME.), Yes venous stasis dermatitis and Yes other (HAS THE A SMALL CONTUSION OF THE RIGHT FOREFOOT, WITH BLUISH DISCOLORATION ) Psych Appearance: grossly normal Speech and movement: Normal speech and movement present Assessment & Plan Assessment & Plan (1) COPD (chronic obstructive pulmonary disease): Comment: THIS PATIENT DOES HAVE CHRONIC BRONCHITIS/ COPD, WITH SHORTNESS OF BREATH, COUGH AND CONGESTION OF THE CHEST. RELATIVELY STABLE AT THIS TIME , BUT CONTINUES TO BE SHORT OF BREATH ON MINIMAL EXERTION, Code(s): J44.9 - Chronic obstructive pulmonary disease, unspecified Qualifiers: COPD type: emphysema Emphysema type: panlobular Qualified Code(s): J43.1 - Panlobular emphysema Plan: TX :DUONEB UPDRAFTS Q 6 HOURS WHILE AWAKE DURING THE DAYTIME.( USE AT LEAST 3 TIMES A DAY . ) ALBUTEROL HFA 2 PUFFS Q 6 HOURS P.R.N. BREO 100-25 one inh daily . (2) Respiratory failure with hypoxia: Comment: This patient definitely has nocturnal hypoxemia as well as Exercise induced Hypoxemia . Use of POC . not effective as she is mouth breather So she is advised to use O2 3 L/minute , when using POC .Instructed Re: proper use of POC/ O2 conserving unit . Code(s): J96.91 - Respiratory failure, unspecified with hypoxia Plan: as above Coding Level of Care Code Est Pt Level 4 (04781) Diagnoses Panlobular emphysema J43.1 COPD type: emphysema Emphysema type: panlobular Respiratory failure with hypoxia J96.91
== END 2023-07-22 11:27 | disposition home or self-care (01) ==
PROVIDERS: PCP Internal Medicine; Visit Provider Internal Medicine
DX: J43.1 Panlobular emphysema (principal); J96.91 Respiratory failure, unspecified with hypoxia
CPT/HCPCS: 99214

== ENCOUNTER → 2023-07-22 10:45 | Outpatient (BNVA) | payer MEDICARE, SELFPAY | PROVIDERS: PCP Internal Medicine; Visit Provider Internal Medicine | DX: J43.1 Panlobular emphysema (principal); J96.91 Respiratory failure, unspecified with hypoxia | CPT/HCPCS: 99212 ==

== ENCOUNTER 2023-07-24 10:30 | Emergency (ER) | payer MEDICARE, SELFPAY ==
--- NOTE | ~2023-07-24 | XR_ITS ---
EXAMINATION: XR CHEST CLINICAL INFORMATION: Left chest pain radiating to back. COMPARISON: CT chest 06/27/2023 TECHNIQUE: 2 views of the chest were obtained. FINDINGS: The lungs are well-expanded without any acute consolidation, pulmonary nodule or mass. There is no pleural effusion suspected. Heart size is borderline enlarged. On recent CT chest exam there is moderate pericardial fat seen. The pulmonary vascularity is normal. Moderate right para midline spondylosis seen. XR/XR chest 2V IMPRESSION: No acute cardiopulmonary process seen.
--- NOTE | 2023-07-24 10:40 | ECG_ITS ---
Test Reason : CP Blood Pressure : / mmHG Vent. Rate : 077 BPM Atrial Rate : 077 BPM P-R Int : 162 ms QRS Dur : 082 ms QT Int : 390 ms P-R-T Axes : 065 047 051 degrees QTc Int : 441 ms Normal sinus rhythm Normal ECG When compared with ECG of 03-JUL-2023 00:40, No significant change was found Referred By: Courtney Phillip Electronically Signed By:RAMSEY ZARATE MD
[2023-07-24 10:59] VITALS: BP 113/84; BP 126/65; PULSE 80; PULSE 86; RESP 20; TEMP 36.6; O2SAT 98; BMI 43.9
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
--- NOTE | 2023-07-24 11:08 | PC.NURSE ---
Pt to [facility] with complaints of CP, pt states that the pain is in her left chest and radiates to her back. O2 dependent, on 2LNC chronically. Pt states that she thinks her pain is related to stress, states that yesterday she didn't have supplemental oxygen all day due to her forgetting to fill the tank. All other VSS. Pt A&Ox3. EKG complete & given to ED provider. Cardiac monitoring in place. WCTA
[2023-07-24 11:35] VITALS: BP 126/65; PULSE 80; RESP 20; TEMP 36.6; O2SAT 98
[2023-07-24 11:49] LABS: MANUAL DIFF FLAG NO
[2023-07-24 12:01] LABS: Basophils Percent Auto 0.3 % (0-2); Eosinophils Absolute Auto 0.3 X10*3/uL (0.0-0.4); Hematocrit 35.7 % (37.0-47.0); Hemoglobin 11.1 g/dl (12.0-16.0); Imm Gran Abs Auto 0.04 X10*3/uL (0.00-0.03); Imm Gran Pct Auto 0.4 % (0.0-0.4); Lymphocytes Absolute Auto 2.2 X10*3/uL (1.2-4.9); Lymphocytes Percent Auto 22.4 % (20-40); Mean Corpuscular HGB Conc 31.1 g/dl (31.0-35.0); Mean Corpuscular Hemoglobin 28.2 pg (27.0-33.0); Mean Corpuscular Volume 90.6 fL (80.0-98.0); Mean Platelet Volume 11.8 fL (9.4-12.3); Monocytes Absolute Auto 0.6 X10*3/uL (0.1-1.2); Monocytes Percent Auto 6.4 % (2-11); Neutrophils Absolute Auto 6.6 x10*3/uL (2.0-8.3); Neutrophils Percent Auto 67.5 % (45-73); Platelet Count 195 X10*3/uL (160-400); Red Blood Count 3.94 X10*6/uL (4.20-5.50); Red Cell Distribution Width 13.2 % (11.0-16.0); White Blood Count 9.7 X10*3/uL (4.8-10.8)
--- OUTSIDE RECORDS SUMMARY | 2023-07-24 12:05 | XMS_ITS | Patient Health Record ---
Author Name Unknown [facility] Address [address] [place] [address] Care Team Providers Care Catcher Filter Tip Name Role Phone Chris BROWNE, [facility] Primary Care Provider Nik Horner Unavailable [phone] ALLERGIES No Known Allergies REASON FOR REFERRAL [...] Route Administration Date Status Comme nts COVID-19 [employer] Vaccine Unknown 05/10/2021 Administered 1st 08/21/2020 2nd [...] confirmed Acquired hammer toe of right foot (313832354020070 5) Problem Other hammer toe(s) (acquired), left foot (M20.42) Active confirmed Acquired hamme r toe of left foot ([id number] 3) Problem Type 2 diabetes mellitus without complication (E11.9) Active confirmed Type 2 diabetes mellitus without complication (048652033) Encounters Encounter Location Date Provider Diagnosis [facility] [address] [address] 07/25/2022 Nik Hernandez [facility] [address] [address] 07/29/2022 Nik Hernandez PLAN OF TREATMENT Pending Test Test Name Order Date [id number] NAIL, 6 OR MORE 09/21/2020 [id number] NAIL, 6 OR MORE 12/21/2020 [id number] NAIL, 6 OR MORE 05/17/2021 [id number] NAIL, 6 OR MORE 08/23/2021 [id number] NAIL, 6 OR MORE 01/28/2022 [id number] NAIL, 6 OR MORE 05/11/2020 Insurance Providers Payer Name Payer Address Payer Phone Subscriber Number Group Number Insured Name Patient Relationship to Insured Coverage Start Date Coverage End Date [employer] [address] [place] [address] [id number] [employer] Self - patient is the insured MEDICAL (GENERAL) HISTORY Medical History History ICD Code Lung disease COPD CAD Depression Restless Leg type II diabetes Surgical History Surgery Date(Month/Year) teeth extraction Surgery 2019 Left Knee Replacement Hospitalization History Reason Date(Month/Year) [facility] - pneumonia/ high sugars 15 days 2 [facility] fell about a week 01/2022
--- OUTSIDE RECORDS SUMMARY | 2023-07-24 12:05 | XMS_ITS | Patient Health Record ---
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 Name Role Phone José Manuel Bowman MD Primary Care Provider UnavailEllis Bernabe Unavailable [phone] Gladys BROWNE, Wallace Unavailable Unavailable ALLERGIES Allergen [...] Ulcerative colitis (K51.90) Active confirmed Ulcerative colitis ([id number]) PLAN OF TREATMENT No Information Insurance Providers Payer Name Payer Address Payer Phone Subscriber Number Group Number Insured Name Patient Relationship to Insured Coverage Start Date Coverage End Date MEDICARE OF [place] [address] [place] [id number] SWATI BROOKEE Self - patient is the insured MEDICAID OF [facility] [address] [place] [phone] [id number] MISSY BROOKELENE Self - patient is the insured MEDICAL (GENERAL) HISTORY Medical History History ICD Code colonoscopy 11-09-2006 gerd Surgical History Surgery Date(Month/Year) cholecystectomy hysterectomy with oophorectomy D&C and tubal ligation
[2023-07-24 12:07] LABS: Prothrombin Time 11.6 SEC (11.1-13.3)
[2023-07-24 12:13] LABS: Alanine Aminotransferase 21 U/L (0-31); Albumin Level 3.8 g/dL (3.5-5.0); Alkaline Phosphatase 41 U/L (39-117); Anion Gap 12 (12-20); Aspartate Amino Transferase 21 U/L (5-31); Bilirubin Total 0.4 mg/dL (0.0-1.0); Blood Urea Nitrogen 23 mg/dL (9-16); Calcium 9.1 mg/dL (8.4-10.2); Carbon Dioxide 31 mmol/L (22-29); Chloride 102 mmol/L (96-108); Creatinine Clr Calc Pharmacy 35.2; Estimated Glomerular Filt Rate 33; Glucose Random 182 mg/dL (60-115); Lipase 16 U/L (8-78); Magnesium 1.8 mg/dL (1.6-2.6); Potassium 4.2 mmol/L (3.3-5.1); Sodium 141 mmol/L (135-145); Total Protein 6.5 g/dL (6.5-8.0)
[2023-07-24 12:17] LABS: B Type Natriuretic Peptide < 10 pg/mL (<100)
[2023-07-24 12:18] LABS: Troponin-I High Sensitivity < 2.7 ng/L (<3.5-17.0)
[2023-07-24 13:40] VITALS: BP 103/68; PULSE 80; RESP 20; TEMP 36.4; O2SAT 99
[2023-07-24 14:42] LABS: D Dimer High Sensitivity < 150 NG/ML
[2023-07-24] MEDS: Magnesium Hydrox/Alum Hydrox 30 ML ORAL.SUSP PO (14:43)
[2023-07-24] MEDS: Acetaminophen 325 MG TABLET 975 MG PO (14:43)
[2023-07-24] MEDS: PHENobarb/Hyoscy/Atropine/Scop 10 ML ELIXIR PO (14:43)
[2023-07-24] MEDS: Ondansetron ODT 4 MG TAB.RAPDIS TRANSLINGU (14:43)
[2023-07-24 15:16] VITALS: BP 103/44; PULSE 74; RESP 20; TEMP 36.6; O2SAT 94
--- NOTE | 2023-07-24 15:28 | MHC.EDTECH ---
THIS PCT ASSUNED CARE OF PT AT 1500 ,VITALS TAKEN AND BLOOD SUGAR CHECK ,PT COMFORTABLE WATCHING TELEVISION .
[2023-07-24 15:32] LABS: Appearance Urine Cloudy; Color Urine Yellow; Glucose Urine UA 100 mg/dL (Negative); Leukocyte Esterase Urine Small (1+) (Negative); Nitrite Urine Negative (Negative); PH 5.5 (5.0-9.0); UMIC TRIGGER UACC YES; Urine Blood Negative (Negative); Urine Ketones Negative (Negative); Urine Protein Negative (Neg-Trace)
[2023-07-24 15:45] LABS: Bacteria Urine 2+ (None Seen); UACC Culture Trigger YES
[2023-07-24 15:51] LABS: RBC Urine 0-2 /HPF (0-2)
[2023-07-24 16:00] VITALS: BP 124/61; PULSE 79; RESP 19; TEMP 36.4; O2SAT 98
[2023-07-24 18:06] LABS: Glucose, Whole Blood 136 mg/dL (60-115)
== END 2023-07-24 16:37 | disposition home or self-care (01) ==
PROVIDERS: Physician Assistant Medical; Emergency Provider Emergency Medicine; PCP Internal Medicine
DX: N39.0 Urinary tract infection, site not specified (principal); K21.9 Gastro-esophageal reflux disease without esophagitis; R07.89 Other chest pain; J44.9 Chronic obstructive pulmonary disease, unspecified; R06.02 Shortness of breath; Z99.81 Dependence on supplemental oxygen; Z79.899 Other long term (current) drug therapy
CPT/HCPCS: 36415; 71046; 80053; 81001; 82947; 83690; 83735; 83880; 84484; 85025; 85379; 85610; 87086; 93005; 99284; 99285

== ENCOUNTER → 2023-07-24 10:40 | Outpatient (BNV) | payer MEDICARE, SELFPAY | PROVIDERS: Emergency Provider Emergency Medicine; PCP Internal Medicine; Visit Provider Internal Medicine Cardiovascular Disease | DX: R07.9 Chest pain, unspecified (principal) | CPT/HCPCS: 93010 ==

== ENCOUNTER 2023-08-04 09:29 | Outpatient (AMB) | payer MEDICARE, SELFPAY ==
[2023-08-04 09:49] VITALS: BP 100/46; PULSE 83; O2SAT 96; BMI 44.0
--- NOTE | 2023-08-04 09:49 | MHC.PC.OV ---
Vital Signs 08/04/23 09:49 Height 5 ft Weight 225 lb 8 oz BMI 44.0 BP 100/46 L Blood Pressure Location Rt brachial Position Sitting Pulse 83 Pulse Source Pulse Oximeter Pulse Oximetry (%) 96 Oxygen Delivery Method Room Air Intake Visit Reasons: COPD Allergies adhesive tape [ADHESIVE TAPE] Allergy (Intermediate, Verified 08/04/23 09:50) RASH trimethobenzamide [From TIGAN] Allergy (Mild, Verified 08/04/23 09:50) NAUSEA environmental Allergy (Intermediate, Uncoded 07/22/23 11:47) Nasal congestion Medication List - Last Reconciled 08/04/23 by Shelbi Perez MD [adult diapers large Use up to 6/day] albuterol sulfate 2.5 mg (3 mL) inhalation Q4-6H PRN albuterol sulfate 90 mcg/actuation (ProAir HFA) 2 puffs inhalation Q4-6H PRN 30 days amlodipine (Norvasc) 5 mg PO DAILY 30 days aspirin 81 mg PO DAILY atorvastatin 80 mg PO DAILY 90 days blood sugar diagnostic (FreeStyle Lite Strips) Use to check blood sugar twice daily and when having symptoms of hypo/hyperglycemia blood sugar diagnostic (Vivid Logicuch Ultra Test strips) Use to check blood sugar twice daily and when having symptoms of hypo/hyperglycemia blood-glucose meter (Vivid Logicuch Ultra2 Meter) Use to check blood sugar twice daily and when having symptoms of hypo/hyperglycemia bupropion HCl 150 mg PO DAILY cholecalciferol (vitamin D3) 25 mcg PO DAILY citalopram 10 mg PO DAILY diaper,brief,adult,disposable Use for stress incontinence gabapentin 300 mg PO QAM hydroxyzine pamoate 25 mg PO BID insulin aspart U-100 (Novolog FlexPen U-100 Insulin aspart) See Protocol sliding scale doses subcut TID insulin detemir U-100 20 units (0.2 mL) subcut DAILY 90 days ipratropium-albuterol 0.5 mg-3 mg(2.5 mg base)/3 mL 3 mL inhalation Q6H PRN 30 days lancets once a day lancets (Vivid Logicuch Delica Lancets) Use to check blood sugar twice daily and when having symptoms of hypo/hyperglycemia lisinopril 5 mg PO DAILY montelukast 10 mg PO DAILY multivitamin 1 tab PO DAILY nebulizers (AeroEclipse II Nebulizer) As directed oxygen-air delivery systems As directed pantoprazole (Protonix) 20 mg PO BEDTIME 4 weeks pen needle, diabetic (BD Ultra-Fine Mini Pen Needle) Use to administer insulin twice daily pen needle, diabetic 4x a day ropinirole 2 mg PO BID Shower Chair Shower chair with back and arm rests trazodone 200 mg PO BEDTIME walker Wheeled walker with seat and brakes Tobacco use date assessed: 08/04/23 Fall risk assessment: No Falls in past year Last assessed Fall Risk: 08/04/23 Dental Screening Dental Screen Date: 08/04/23 Did you have a dental visit in the last 12 months?: No Did you have a dental problem in the last 6 months where you did not have access to dental care?: No Was dental information given to patient?: Patient has dentist HPI COPD HPI Details Patient is 73-year-old female with a history of COPD on 2 L of nasal cannula, diabetes mellitus, morbid obesity, chronic kidney disease, arthritis, anxiety, depression, anemia, GERD, restless leg syndrome, hyperlipidemia, Came in for her regular follow-up appointment Sugars are out of control, hemoglobin A1c is 9.9 Patient is on long-acting 20 units of insulin once a day and NovoLog as per insulin sliding scale I am adding Trulicity today once a week We will book a telemedicine visit in 3 week to follow up on that Patient also have a chronic kidney disease, diabetic nephropathy and microalbuminuria last hemoglobin A1c checked 12th of this month was in 30s She has lost in touch with Nephrology, I have created another referral for her to see them Blood pressure is stable Patient is also on lipid medication Medication list reviewed Depression management through Psychiatry all medications through them for depression Chronic urine incontinence with frequency of urination Patient is on diapers She has requesting a urinalysis which I have ordered for her Diabetic neuropathy treated with gabapentin 300 mg COPD management through sales administration specialist Allergies stable Restless leg syndrome: Patient is on ropinirole 2 mg b.i.d. She uses walker for ambulation Morbidly obese [facility] Medical History COPD (chronic obstructive pulmonary disease) Respiratory failure with hypoxia Urinary tract infection Hypoxemia Morbid obesity CKD (chronic kidney disease) Anemia COPD exacerbation Allergic rhinitis ALDO (obstructive sleep apnea) Obesity (BMI 30-39.9) Constipation due to opioid therapy Osteoarthritis of left knee Hx SBO Hyperlipidemia CPAP (continuous positive airway pressure) dependence History of adrenal adenoma Osteochondroma of left femur Arthritis Diabetes Elevated cholesterol History of restless legs syndrome History of diverticulitis GERD (gastroesophageal reflux disease) Surgical History H/O excision of mass History of oophorectomy History of cholecystectomy History of appendectomy History of arthroscopy of left knee History of partial colectomy Hx of cataract extraction H/O exploratory laparotomy H/O colonoscopy History of surgery History of hysterectomy Family History Father HTN (hypertension) Diabetes mellitus Mother HTN (hypertension) Liver cancer Social History 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 Other:: EX Housing: Apartment Are you a primary professional healthcare representative to a significant other at home: No Do you presently have visiting nurse or other home services: No Unable to assess alcohol history related to: Unknown Alcohol intake: never Comment: PT SLEEPING Patient Tobacco Use Status: Never used Tobacco e-Cigarette/Vaping Use: Never Used Second Hand Smoke Exposure: No Advance Directives Date on File: 07/08/21 service: No Current occupational status: retired Cognitive needs: No Hearing needs: No Vision needs: No Female Reproductive History Menstrual Age of Menarche: 13 Questionnaire Thrive Questionnaire Date Thrive assessed: 06/07/23 RACHNA-7 AMB Questionnaire RACHNA-7 Date RACHNA - 7 assessed: 02/18/23 Source: Developed by Drs. Ellis Child, Nimo Castillo, Miguel East and colleagues, with an educational miki from [employer]. Review of Systems Const Denies chills and Denies fever(s) ENT Denies epistaxis and Denies nasal discharge Card Denies chest pain Resp Denies chest congestion, Denies cough and Denies hemoptysis GI Denies diarrhea and Denies nausea Skin/Breast Denies rash Neuro Reports no additional complaints Psych Reports no additional complaints Endo Reports no additional complaints Physical exam (Primary Care) Vital Signs: Last Vital Signs Pulse 83 08/04/23 09:49 BP 100/46 L 08/04/23 09:49 Pulse Ox 96 08/04/23 09:49 Oxygen Delivery Method Room Air 08/04/23 09:49 BMI result Body Mass Index 44.0 Tobacco/Smoking Status: Tobacco use Status Tobacco use date assessed 08/04/23 08/04/23 09:56 Patient Tobacco Use Status Never used Tobacco 08/04/23 09:53 e-Cigarette/Vaping Use Never Used 08/04/23 09:53 Thrive Assessment: Date of Thrive Assessment Date Thrive assessed 06/07/23 08/04/23 09:53 Const General: cooperative, comfortable and no acute distress Orientation/consciousness: patient oriented x3 HENMT Head: Yes normocephalic Eyes General: appearance normal, both eyes and all related structures Neck Neck: Yes supple Resp Effort & Inspection: normal respiratory effort, no cough and no stridor Cardio Rhythm: regular rhythm Heart sounds: S1 normal heart sound present and S2 normal heart sound present Skin General skin exam: turgor normal Neuro General: patient oriented x3, tone normal and moves all extremities Results AMB Hemoglobin A1c AMB Hemoglobin A1c 9.9 % Last Edit by Liz Kowalski CMA on 08/04/23 10:13 Results Reviewed Results Reviewed: Laboratory Last Values Hgb A1c (Clinic) 9.9 % (4.0-6.0) H 08/04/23 10:10 Assessment and Plan Assessment & Plan (1) Recurrent UTI: Code(s): N39.0 - Urinary tract infection, site not specified (2) Diabetic nephropathy: Code(s): E11.21 - Type 2 diabetes mellitus with diabetic nephropathy Qualifiers: Diabetes mellitus type: type 1 Qualified Code(s): E10.21 - Type 1 diabetes mellitus with diabetic nephropathy (3) CKD (chronic kidney disease): Code(s): N18.9 - Chronic kidney disease, unspecified Qualifiers: Chronic kidney disease stage: stage 3 (moderate) Chronic kidney disease stage 3 subtype: stage 3b (GFR 30-44) Qualified Code(s): N18.32 - Chronic kidney disease, stage 3b (4) Microalbuminuria: Code(s): R80.9 - Proteinuria, unspecified (5) COPD (chronic obstructive pulmonary disease): Comment: THIS PATIENT DOES HAVE CHRONIC BRONCHITIS/ COPD, WITH SHORTNESS OF BREATH, COUGH AND CONGESTION OF THE CHEST. RELATIVELY STABLE AT THIS TIME , BUT CONTINUES TO BE SHORT OF BREATH ON MINIMAL EXERTION, Code(s): J44.9 - Chronic obstructive pulmonary disease, unspecified Qualifiers: COPD type: emphysema Emphysema type: panlobular Qualified Code(s): J43.1 - Panlobular emphysema (6) Depression, major, recurrent: Code(s): F33.9 - Major depressive disorder, recurrent, unspecified Qualifiers: Active/Remission status: in partial remission Qualified Code(s): F33.41 - Major depressive disorder, recurrent, in partial remission (7) Diabetic neuropathy, painful: Code(s): E11.40 - Type 2 diabetes mellitus with diabetic neuropathy, unspecified (8) Type 1 diabetes mellitus with morbid obesity: Code(s): E10.69 - Type 1 diabetes mellitus with other specified complication; E66.01 - Morbid (severe) obesity due to excess calories (9) Anemia: Code(s): D64.9 - Anemia, unspecified Qualifiers: Anemia type: due to chronic kidney disease Chronic kidney disease stage: stage 3 (moderate) Chronic kidney disease stage 3 subtype: stage 3a (GFR 45-59) Qualified Code(s): N18.31 - Chronic kidney disease, stage 3a; D63.1 - Anemia in chronic kidney disease (10) intermediate (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 insulin: Code(s): Z79.4 - environmental health safety engineer (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 insulin (11) Urine incontinence: Code(s): R32 - Unspecified urinary incontinence Qualifiers: Urinary Incontinence type: mixed stress and urge incontinence Qualified Code(s): N39.46 - Mixed incontinence (12) Chronic GERD: Code(s): K21.9 - Gastro-esophageal reflux disease without esophagitis (13) Lipid disorder: Code(s): E78.9 - Disorder of lipoprotein metabolism, unspecified (14) Environmental allergies: Code(s): Z91.09 - Other allergy status, other than to drugs and biological substances (15) Restless leg syndrome: Code(s): G25.81 - Restless legs syndrome (16) Walker as ambulation aid: Code(s): Z99.89 - Dependence on other enabling machines and devices (17) Risk for falls: Code(s): Z91.81 - History of falling (18) Gait instability: Code(s): R26.81 - Unsteadiness on feet (19) Weakness of both legs: Code(s): R29.898 - Other symptoms and signs involving the musculoskeletal system Plan Patient is 73-year-old female with a history of COPD on 2 L of nasal cannula, diabetes mellitus, morbid obesity, chronic kidney disease, arthritis, anxiety, depression, anemia, GERD, restless leg syndrome, hyperlipidemia, Came in for her regular follow-up appointment Sugars are out of control, hemoglobin A1c is 9.9 Patient is on long-acting 20 units of insulin once a day and NovoLog as per insulin sliding scale I am adding Trulicity today once a week We will book a telemedicine visit in 3 week to follow up on that Patient also have a chronic kidney disease, diabetic nephropathy and microalbuminuria last hemoglobin A1c checked 12th of this month was in 30s She has lost in touch with Nephrology, I have created another referral for her to see them Blood pressure is stable Patient is also on lipid medication Medication list reviewed Depression management through Psychiatry all medications through them for depression Chronic urine incontinence with frequency of urination Patient is on diapers She has requesting a urinalysis which I have ordered for her Diabetic neuropathy treated with gabapentin 300 mg COPD management through sales administration specialist Allergies stable Restless leg syndrome: Patient is on ropinirole 2 mg b.i.d. She uses walker for ambulation Morbidly obese Orders: Orders UA CC w/rflx Micro + Cult Today N39.0 - Urinary tract infection, site not specified AMB Hemoglobin A1c Today E10.69 - Type 1 diabetes mellitus with other specified complication, E66.01 - Morbid (severe) obesity due to excess calories Referrals Nephrology Referral E11.21 - Type 2 diabetes mellitus with diabetic nephropathy, N18.9 - Chronic kidney disease, unspecified, N39.0 - Urinary tract infection, site not specified, R80.9 - Proteinuria, unspecified Medications: New dulaglutide (Trulicity) 1.5 mg (0.5 mL) subcut QWEEK 2.5 mL 0RF 30 days Coding Level of Care Code Est Pt Level 5 (66482) Diagnoses Recurrent UTI N39.0 Diabetic nephropathy associated with type 1 diabetes mellitus E10.21 Diabetes mellitus type: type 1 Stage 3b chronic kidney disease N18.32 Chronic kidney disease stage: stage 3 (moderate) Chronic kidney disease stage 3 subtype: stage 3b (GFR 30-44) Microalbuminuria R80.9 Panlobular emphysema J43.1 COPD type: emphysema Emphysema type: panlobular Recurrent major depressive disorder, in partial remission F33.41 Active/Remission status: in partial remission Diabetic neuropathy, painful E11.40 Type 1 diabetes mellitus with morbid obesity E10.69; E66.01 Anemia due to stage 3a chronic kidney disease N18.31; D63.1 Anemia type: due to chronic kidney disease Chronic kidney disease stage: stage 3 (moderate) Chronic kidney disease stage 3 subtype: stage 3a (GFR 45-59) environmental health safety engineer (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 insulin Z79.4 Mixed stress and urge urinary incontinence N39.46 Urinary Incontinence type: mixed stress and urge incontinence Chronic GERD K21.9 Lipid disorder E78.9 Environmental allergies Z91.09 Restless leg syndrome G25.81 Walker as ambulation aid Z99.89 Risk for falls Z91.81 Gait instability R26.81 Weakness of both legs R29.898 Time Spent (min) 40 Comment 5 minute prep, 25 with patient, 5 minute charting, 5 minute coordination of care
== END 2023-08-04 10:07 | disposition home or self-care (01) ==
PROVIDERS: PCP Internal Medicine; Visit Provider Internal Medicine
DX: E10.69 Type 1 diabetes mellitus with other specified complication (principal)
CPT/HCPCS: 83036; 99215

== ENCOUNTER 2023-08-04 10:08 | Outpatient (REF) | payer MEDICARE, SELFPAY ==
[2023-08-04 13:59] LABS: Appearance Urine Clear; Color Urine Yellow; Glucose Urine UA 500 mg/dL (Negative); Leukocyte Esterase Urine Negative (Negative); Nitrite Urine Positive (Negative); PH 5.5 (5.0-9.0); UMIC TRIGGER UACC YES; Urine Blood Negative (Negative); Urine Ketones Negative (Negative); Urine Protein Negative (Neg-Trace)
[2023-08-04 14:06] LABS: Bacteria Urine 4+ (None Seen); Hyaline Casts Urine 0-2 /LPF (0-2); RBC Urine 0-2 /HPF (0-2); UACC Culture Trigger YES
== END 2023-08-04 10:09 | disposition home or self-care (01) ==
LOC: HO.HMGCLDS 10:08
PROVIDERS: PCP Internal Medicine; Visit Provider Internal Medicine
DX: E10.69 Type 1 diabetes mellitus with other specified complication (principal); E66.01 Morbid (severe) obesity due to excess calories
CPT/HCPCS: 81001; 81003; 87086; 87088; 87186

== ENCOUNTER 2023-08-11 14:44 | Outpatient (AMB) | payer MEDICARE, SELFPAY ==
[2023-08-11 14:45] VITALS: BP 134/68; BMI 44.0
--- NOTE | 2023-08-11 14:45 | HO.NEPHOV_ITS ---
HPI HPI Comments History of Present Illness Details 73-year-old woman with hypertension, hyperlipidemia, diabetes mellitus, GERD, osteoarthritis, CKD3, osteo chondroma left femur history of COPD on 2 L of oxygen, history of obstructive sleep apnea on CPAP. h/o CKD 3 : Baseline creatinine of 1.5 h/o few episodes of AGUSTIN - mostly due to hypoperfusion and resolved Recently had UTI with E.Coli and treated with Bactrim x 3 days Blood sugar has been elevated; A1C was 9.9% Trulicity has been prescribed but she has not started yet due to insurance issues [facility] Medical History (Updated 08/11/23 @ 15:08 by Peter Alexander MD) COPD (chronic obstructive pulmonary disease) Respiratory failure with hypoxia Urinary tract infection Hypoxemia Morbid obesity CKD (chronic kidney disease) Anemia COPD exacerbation Allergic rhinitis ALDO (obstructive sleep apnea) Obesity (BMI 30-39.9) Constipation due to opioid therapy Osteoarthritis of left knee Hx SBO Hyperlipidemia CPAP (continuous positive airway pressure) dependence History of adrenal adenoma Osteochondroma of left femur Arthritis Diabetes Elevated cholesterol History of restless legs syndrome History of diverticulitis GERD (gastroesophageal reflux disease) Surgical History H/O excision of mass History of oophorectomy History of cholecystectomy History of appendectomy History of arthroscopy of left knee History of partial colectomy Hx of cataract extraction H/O exploratory laparotomy H/O colonoscopy History of surgery History of hysterectomy Family History Father HTN (hypertension) Diabetes mellitus Mother HTN (hypertension) Liver cancer Social History 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 Other:: EX Housing: Apartment Are you a primary certified caregiver to a significant other at home: No Do you presently have visiting nurse or other home services: No Unable to assess alcohol history related to: Unknown Alcohol intake: never Comment: PT SLEEPING Patient Tobacco Use Status: Never used Tobacco e-Cigarette/Vaping Use: Never Used Second Hand Smoke Exposure: No Advance Directives Date on File: 07/08/21 service: No Current occupational status: retired Cognitive needs: No Hearing needs: No Vision needs: No Female Reproductive History Menstrual Age of Menarche: 13 Vital Signs 08/11/23 14:45 Height 5 ft Weight 225 lb 6 oz BMI 44.0 BP 134/68 Blood Pressure Location Rt brachial Position Sitting Physical Exam Vital Signs: Last Vital Signs BP 134/68 08/11/23 14:45 BMI result Body Mass Index 44.0 Const General: comfortable Nutritional Appearance: well nourished and obese Orientation/consciousness: patient oriented x3 HEENT Head: No normal to inspection Mouth: moist mucous membranes Neck Neck: Yes supple and Yes no JVD Resp Auscultation: clear to auscultation bilaterally, no rales and rub present Cardio Jugular venous distension: no JVD Palpation: no palpable S3 and no palpable S4 Heart sounds: no rubs GI Palpation (GI): Soft to palpation and nontender Percussion: No Fluid wave present General: Yes no CVA tenderness Back/Spine/Pelvis Back: no CVA tenderness Skin General skin exam: no rashes or lesions noted Neuro General: patient oriented x3 Extrem General: Yes no pedal edema and No clubbing Assessment & Plan Assessment & Plan (1) CKD (chronic kidney disease): Code(s): N18.9 - Chronic kidney disease, unspecified Qualifiers: Chronic kidney disease stage: stage 3 (moderate) Chronic kidney disease stage 3 subtype: stage 3b (GFR 30-44) Qualified Code(s): N18.32 - Chronic kidney disease, stage 3b Plan: Due to Hypertensive diabetic kidney disease Urine sediments are balnd- NO reason to suspect AGN/AiN Obstruction unlikely based on recent CT scan Creatinine is close to baseline Goal is to slow the progression of kidney disease Contine to avoid nephrotoxins including NSAIDS - Discussed with Mine Avoid Hypotension and maintain BP < 130/80 Optimize blood sugar Continue ACEi for renal protection Would benefit from SGLT-2 inhibitor Needs weight loss (2) Morbid obesity: Code(s): E66.01 - Morbid (severe) obesity due to excess calories Plan: Discussed weight loss (3) Anemia: Code(s): D64.9 - Anemia, unspecified Qualifiers: Anemia type: due to chronic kidney disease Chronic kidney disease stage: stage 3 (moderate) Chronic kidney disease stage 3 subtype: stage 3a (GFR 45-59) Qualified Code(s): N18.31 - Chronic kidney disease, stage 3a; D63.1 - Anemia in chronic kidney disease Plan: Multifactorial No indication for Epogen Orders: Orders Electrolytes 3 Months N18.9 - Chronic kidney disease, unspecified Blood Urea Nitrogen 3 Months N18.9 - Chronic kidney disease, unspecified Total Protein Urine Random 3 Months N18.9 - Chronic kidney disease, unspecified Creatinine Urine 3 Months N18.9 - Chronic kidney disease, unspecified Creatinine 3 Months N18.9 - Chronic kidney disease, unspecified Calcium 3 Months N18.9 - Chronic kidney disease, unspecified UA and rflx microscopic 3 Months N18.9 - Chronic kidney disease, unspecified Parathyroid Hormone Intact 3 Months N18.9 - Chronic kidney disease, unspecified Coding Level of Care Code Est Pt Level 4 (94901) Diagnoses Stage 3b chronic kidney disease N18.32 Chronic kidney disease stage: stage 3 (moderate) Chronic kidney disease stage 3 subtype: stage 3b (GFR 30-44) Morbid obesity E66.01 Anemia due to stage 3a chronic kidney disease N18.31; D63.1 Anemia type: due to chronic kidney disease Chronic kidney disease stage: stage 3 (moderate) Chronic kidney disease stage 3 subtype: stage 3a (GFR 45-59) Results Reviewed Results Reviewed: 2022 CT SCAN Bilateral adrenal glands: Unremarkable. Kidneys and ureters: Both kidneys are normal size, shape and position. There is a 6 mm radiopaque calculi lower pole and a 6 minute hypodensity upper pole likely cyst left kidney. The right kidney is unremarkable. No perinephric stranding seen. Nephrology Results: Hgb 11.1 g/dl (12.0-16.0) L 07/24/23 WBC 9.7 X10*3/uL (4.8-10.8) 07/24/23 Plt Count 195 X10*3/uL (160-400) 07/24/23 Sodium 141 mmol/L (135-145) 07/24/23 Potassium 4.2 mmol/L (3.3-5.1) 07/24/23 Chloride 102 mmol/L (96-108) 07/24/23 Carbon Dioxide 31 mmol/L (22-29) H 07/24/23 BUN 23 mg/dL (9-16) H 07/24/23 Creatinine 1.53 mg/dL (0.5-1.4) H 07/24/23 Calcium 9.1 mg/dL (8.4-10.2) 07/24/23 Urine Protein Negative mg/dL (Neg-Trace) 08/04/23
== END 2023-08-11 15:14 | disposition home or self-care (01) ==
PROVIDERS: PCP Internal Medicine; Visit Provider Internal Medicine Hypertension Specialist
DX: N18.32 Chronic kidney disease, stage 3b (principal); E66.01 Morbid (severe) obesity due to excess calories; N18.31 Chronic kidney disease, stage 3a; D63.1 Anemia in chronic kidney disease
CPT/HCPCS: 99214

== ENCOUNTER → 2023-08-11 14:44 | Outpatient (BNVA) | payer MEDICARE, SELFPAY | PROVIDERS: PCP Internal Medicine; Visit Provider Internal Medicine Hypertension Specialist | DX: N18.32 Chronic kidney disease, stage 3b (principal); D63.1 Anemia in chronic kidney disease; E66.01 Morbid (severe) obesity due to excess calories; Z68.41 Body mass index [BMI] 40.0-44.9, adult | CPT/HCPCS: 99212 ==

== ENCOUNTER 2023-08-28 15:11 | Outpatient (AMB) | payer MEDICARE, SELFPAY ==
[2023-08-28 15:16] VITALS: BP 146/60; PULSE 119; O2SAT 96; BMI 43.6
--- NOTE | 2023-08-28 15:16 | MHC.PC.OV ---
Vital Signs 08/28/23 15:16 Height 5 ft Weight 223 lb 8 oz BMI 43.6 BP 146/60 H Blood Pressure Location Rt brachial Position Sitting Pulse 119 H Pulse Source Pulse Oximeter Pulse Oximetry (%) 96 Oxygen Delivery Method Room Air Intake Visit Reasons: Pain on side up to back/Coughing up phelgm Allergies adhesive tape [ADHESIVE TAPE] Allergy (Intermediate, Verified 08/28/23 15:18) RASH trimethobenzamide [From TIGAN] Allergy (Mild, Verified 08/28/23 15:18) NAUSEA environmental Allergy (Intermediate, Uncoded 07/22/23 11:47) Nasal congestion Medication List - Last Reconciled 08/28/23 by Shelbi Perez MD [adult diapers large Use up to 6/day] albuterol sulfate 90 mcg/actuation (ProAir HFA) 2 puffs inhalation Q4-6H PRN 30 days albuterol sulfate 2.5 mg (3 mL) inhalation Q4-6H PRN amlodipine (Norvasc) 5 mg PO DAILY 30 days aspirin 81 mg PO DAILY atorvastatin 80 mg PO DAILY 90 days blood sugar diagnostic (FreeStyle Lite Strips) Use to check blood sugar twice daily and when having symptoms of hypo/hyperglycemia blood sugar diagnostic ([employer] Ultra Test strips) Use to check blood sugar twice daily and when having symptoms of hypo/hyperglycemia blood-glucose meter ([employer] Ultra2 Meter) Use to check blood sugar twice daily and when having symptoms of hypo/hyperglycemia bupropion HCl 150 mg PO DAILY cholecalciferol (vitamin D3) 25 mcg PO DAILY citalopram 10 mg PO DAILY diaper,brief,adult,disposable Use for stress incontinence dulaglutide 1.5 mg (0.25 mL) subcut QWEEK 30 days gabapentin 300 mg PO QAM hydroxyzine pamoate 25 mg PO BID insulin aspart U-100 (Novolog FlexPen U-100 Insulin aspart) See Protocol sliding scale doses subcut TID insulin detemir U-100 20 units (0.2 mL) subcut DAILY 90 days ipratropium-albuterol 0.5 mg-3 mg(2.5 mg base)/3 mL 3 mL inhalation Q6H PRN 30 days lancets once a day lancets ([employer] Delica Lancets) Use to check blood sugar twice daily and when having symptoms of hypo/hyperglycemia lisinopril 5 mg PO DAILY montelukast 10 mg PO DAILY multivitamin 1 tab PO DAILY nebulizers (AeroEclipse II Nebulizer) As directed oxygen-air delivery systems As directed pen needle, diabetic (BD Ultra-Fine Mini Pen Needle) Use to administer insulin twice daily pen needle, diabetic 4x a day ropinirole 2 mg PO BID Shower Chair Shower chair with back and arm rests trazodone 200 mg PO BEDTIME walker Wheeled walker with seat and brakes Tobacco use date assessed: 08/28/23 Dental Screening Dental Screen Date: 08/28/23 Did you have a dental visit in the last 12 months?: No Did you have a dental problem in the last 6 months where you did not have access to dental care?: No Was dental information given to patient?: No HPI Pain on side up to back/Coughing up phelgm HPI Details Patient is 73-year-old female with uncontrolled diabetes, spot blood sugar is 383 Patient says that it is because of pain that she is having This morning she started having pain left posterior ribcage area She is pointing to words lower ribs posteriorly at the site of pain And she is having severe pain with pressure at that side Also having muscle spasms I have ordered x-ray of ribs, I have sent Percocet tablets she may take 1q aid as needed for pain And cyclobenzaprine 10 mg Q 8 as needed Further management after the reports Pulse ox is 96% on room air Blood pressure is slightly elevated along with heart rate as patient is in pain She looks uncomfortable, pain is worsened with movement [facility]LY [facility] Medical History COPD (chronic obstructive pulmonary disease) Respiratory failure with hypoxia Urinary tract infection Hypoxemia Morbid obesity CKD (chronic kidney disease) Anemia COPD exacerbation Allergic rhinitis ALDO (obstructive sleep apnea) Obesity (BMI 30-39.9) Constipation due to opioid therapy Osteoarthritis of left knee Hx SBO Hyperlipidemia CPAP (continuous positive airway pressure) dependence History of adrenal adenoma Osteochondroma of left femur Arthritis Diabetes Elevated cholesterol History of restless legs syndrome History of diverticulitis GERD (gastroesophageal reflux disease) Surgical History H/O excision of mass History of oophorectomy History of cholecystectomy History of appendectomy History of arthroscopy of left knee History of partial colectomy Hx of cataract extraction H/O exploratory laparotomy H/O colonoscopy History of surgery History of hysterectomy Family History Father HTN (hypertension) Diabetes mellitus Mother HTN (hypertension) Liver cancer Social History 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 Other:: EX Housing: Apartment Are you a primary long term care social worker to a significant other at home: No Do you presently have visiting nurse or other home services: No Unable to assess alcohol history related to: Unknown Alcohol intake: never Comment: PT SLEEPING Patient Tobacco Use Status: Never used Tobacco e-Cigarette/Vaping Use: Never Used Second Hand Smoke Exposure: No Advance Directives Date on File: 07/08/21 service: No Current occupational status: retired Cognitive needs: No Hearing needs: No Vision needs: No Female Reproductive History Menstrual Age of Menarche: 13 Questionnaire Thrive Questionnaire Date Thrive assessed: 06/07/23 AUDIT C Alcohol Use Questionnaire (AUDIT-C) 1. How often do you have a drink containing alcohol?: Never 3. How often do you have six or more drinks on one occasion?: Never Total Score: 0 Score Reviewed/Action Taken: Yes RACHNA-7 AMB Questionnaire RACHNA-7 Date RACHNA - 7 assessed: 02/18/23 Source: Developed by Drs. Ellis Child, Nimo Castillo, Miguel East and colleagues, with an educational miki from [employer]. Review of Systems Const Denies chills and Denies fever(s) ENT Denies epistaxis and Denies nasal discharge Resp Denies chest congestion and Denies hemoptysis GI Denies diarrhea and Denies nausea Skin/Breast Denies rash Neuro Reports no additional complaints Psych Reports no additional complaints Endo Reports no additional complaints Physical exam (Primary Care) Vital Signs: Last Vital Signs Pulse 119 H 08/28/23 15:16 BP 146/60 H 08/28/23 15:16 Pulse Ox 96 08/28/23 15:16 Oxygen Delivery Method Room Air 08/28/23 15:16 BMI result Body Mass Index 43.6 Tobacco/Smoking Status: Tobacco use Status Tobacco use date assessed 08/28/23 08/28/23 15:20 Patient Tobacco Use Status Never used Tobacco 08/28/23 15:20 e-Cigarette/Vaping Use Never Used 08/28/23 15:20 Thrive Assessment: Date of Thrive Assessment Date Thrive assessed 06/07/23 08/28/23 15:20 Const General: cooperative Orientation/consciousness: patient oriented x3 HENMT Head: Yes normocephalic Neck Neck: Yes supple Resp Effort & Inspection: no stridor Cardio Rhythm: regular rhythm Heart sounds: S1 normal heart sound present and S2 normal heart sound present Back/Spine/Pelvis Back/spine/pelvis image: 1. Site of pain with pressure 2. No pain with percussion Skin General skin exam: turgor normal Neuro General: patient oriented x3, tone normal and moves all extremities Assessment and Plan Assessment & Plan (1) Acute chest wall pain: Code(s): R07.89 - Other chest pain (2) Hyperglycemia: Code(s): R73.9 - Hyperglycemia, unspecified (3) Elevated blood pressure reading: Code(s): R03.0 - Elevated blood-pressure reading, without diagnosis of hypertension (4) Tachycardia: Code(s): R00.0 - Tachycardia, unspecified (5) Pain: Code(s): R52 - Pain, unspecified Plan Patient is 73-year-old female with uncontrolled diabetes, spot blood sugar is 383 Patient says that it is because of pain that she is having This morning she started having pain left posterior ribcage area She is pointing to words lower ribs posteriorly at the site of pain And she is having severe pain with pressure at that side Also having muscle spasms I have ordered x-ray of ribs, I have sent Percocet tablets she may take 1q aid as needed for pain And cyclobenzaprine 10 mg Q 8 as needed Further management after the reports Pulse ox is 96% on room air Blood pressure is slightly elevated along with heart rate as patient is in pain She looks uncomfortable, pain is worsened with movement Orders: Orders XR ribs LT min 3V w CXR1V Today R07.89 - Other chest pain Medications: New oxycodone-acetaminophen 5-325 mg (Percocet) Partial Fill upon patient request. 1 tab PO TID 7 days PRN 20 tabs 0RF pain cyclobenzaprine 10 mg PO TID 7 days PRN 20 tabs 0RF muscle spasm Coding Level of Care Code Est Pt Level 4 (95718) Diagnoses Acute chest wall pain R07.89 Hyperglycemia R73.9 Elevated blood pressure reading R03.0 Tachycardia R00.0 Pain R52
== END 2023-08-28 15:52 | disposition home or self-care (01) ==
PROVIDERS: PCP Internal Medicine; Visit Provider Internal Medicine
DX: R07.89 Other chest pain (principal); R73.9 Hyperglycemia, unspecified; R03.0 Elevated blood-pressure reading, without diagnosis of hypertension; R00.0 Tachycardia, unspecified
CPT/HCPCS: 99214

== ENCOUNTER 2023-08-28 15:37 | Outpatient (REF) | payer MEDICARE, SELFPAY ==
--- NOTE | ~2023-08-28 | XR_ITS ---
EXAMINATION: XR RIBS, LEFT CLINICAL INFORMATION: Chest pain. COMPARISON: Chest radiograph 07/24/2023. TECHNIQUE: 3 views of the left ribs were obtained. FINDINGS: Stable prominence of the cardiomediastinal silhouette. Unchanged mild diffuse interstitial thickening. No new focal consolidation, pleural effusion or pneumothorax. Chronic deformity of the left anterolateral second rib. Chronic deformities of the bilateral proximal humerus. No acutely appearing displaced rib fractures. XR/XR ribs LT min 3V w CXR1V IMPRESSION: 1. No acute cardiopulmonary findings. 2. No acutely appearing displaced rib fractures. 3. Chronic deformities of the bilateral proximal humerus and left anterolateral second rib.
== END 2023-08-28 15:38 | disposition home or self-care (01) ==
LOC: HO.HMGCX 15:37
PROVIDERS: PCP Internal Medicine; Visit Provider Internal Medicine
DX: R07.89 Other chest pain (principal)
CPT/HCPCS: 71101

== ENCOUNTER 2023-09-01 12:18 | Emergency (ER) | payer MEDICARE, SELFPAY ==
--- NOTE | ~2023-09-01 | CT_ITS ---
EXAMINATION: CT chest, abdomen and pelvis without IV contrast. CLINICAL INDICATIONS: Urinary frequency. Question kidney stones. COMPARISON: CT abdomen and pelvis 06/27/2023. TECHNIQUE: 5 mm thin axial and reformatted 3 mm thin sagittal coronal images of chest, abdomen pelvis were obtained without contrast. DLP 1305. This CT examination was performed using dose optimization technique as appropriate, variously including the following: Automated exposure control Adjustment of MA and/or KV according to patient size(this includes techniques or standardized protocols for targeted exams where dose is matched to indication/reason for exam; extremities or head. Use of iterative reconstruction techniques. FINDINGS: CHEST: LUNGS: The lungs are well-expanded without acute consolidation, contusion, mass or pulmonary nodules. Pleura: There is no pleural effusion, thickening or pneumothorax. No calcified pleural plaque seen. Mediastinum: The thyroid lobes are symmetrical and normal. The central trachea and bronchi are widely patent. Heart size and the great vessels are normal caliber. There is no pericardial effusion. No abnormal size mediastinal hilar lymph nodes. Axilla: No abnormal size axillary lymph nodes. The chest wall is unremarkable. Osseous structures: No aggressive lytic or sclerotic process seen. Abdomen and pelvis: Liver, ducts and gallbladder: The liver is normal size, contour and density. No focal lesion or intrahepatic ductal dilatation. Spleen: Unremarkable. Pancreas: Unremarkable. Adrenal glands: Unremarkable. Kidneys: Both kidneys are normal size, position size and position. There is a nonobstructive 6 mm radiopaque calculi lower pole calyx left kidney. No additional radiopaque calculi seen. Both ureters are normal caliber. Bladder: The bladder is nondistended and appears unremarkable. Lymphovascular structures: Abdominal aorta is normal caliber. No retroperitoneal lymph nodes, hematoma or mass seen. GI tract: There is scattered stool, diverticuli and gas seen throughout the colon. No evidence of distention or diverticulitis. There are annular sutures in the sigmoid colon with widely patent lumen. Small bowel loops are normal caliber. Appendix is not visualized. There is no free fluid or free air seen. Abdominal wall: There is no evidence of hernia. Likely postsurgical changes along the lower anterior abdominal wall. Pelvis: The uterus has been surgically removed. No adnexal mass or free fluid seen. Osseous structures: There is mild degenerative disc changes with vacuum disc phenomena L5-S1 disc level. No aggressive lytic or sclerotic process seen. There is mild degenerative ventral spondylosis lower dorsal spine. CT/CT abdomen pelvis wo IV con IMPRESSION: Unremarkable CT chest exam. Nonobstructive 6 mm radiopaque calculi lower pole left kidney. There is no evidence of hydronephrosis. Mild degenerative disc changes L5-S1 disc level with vacuum disc phenomena and ventral spondylosis.
[2023-09-01 12:24] VITALS: BP 134/90; PULSE 92; O2SAT 99
[2023-09-01 12:41] VITALS: BP 110/95; PULSE 93; RESP 19; TEMP 36.6; O2SAT 97; BMI 44.9
--- NOTE | 2023-09-01 12:47 | ECG_ITS ---
Test Reason : sob Blood Pressure : / mmHG Vent. Rate : 088 BPM Atrial Rate : 088 BPM P-R Int : 152 ms QRS Dur : 086 ms QT Int : 366 ms P-R-T Axes : 036 015 019 degrees QTc Int : 442 ms Normal sinus rhythm Cannot rule out Anterior infarct , age undetermined Abnormal ECG When compared with ECG of 24-JUL-2023 10:44, No significant change was found Referred By: Raz Cuenca Electronically Signed By:RAMSEY ZARATE MD
--- NOTE | 2023-09-01 12:47 | ED_ITS ---
HPI - General Adult General Chief complaint: General Medical Stated complaint: DIZZY W/STANDING,PROD COUGH PER EMS History of Present Illness HPI narrative: left without completion of treatment by ED provider. Related Data Home Medications Medication Instructions Recorded Confirmed bupropion HCl 150 mg 24 hr tablet, 150 mg PO DAILY 04/25/20 08/28/23 extended release oxygen-air delivery systems ##1 04/25/20 08/28/23 blood sugar diagnostic (FreeStyle 08/09/21 08/28/23 Lite Strips) aspirin 81 mg chewable tablet 81 mg PO DAILY 10/01/21 08/28/23 trazodone 100 mg tablet 200 mg PO BEDTIME 10/01/21 08/28/23 cholecalciferol (vitamin D3) 25 25 mcg PO DAILY 01/04/22 08/28/23 mcg (1,000 unit) capsule hydroxyzine pamoate 25 mg capsule 25 mg PO BID 08/13/22 08/28/23 citalopram 10 mg tablet 10 mg PO DAILY 06/06/23 08/28/23 multivitamin 1 tab PO DAILY 06/06/23 08/28/23 ropinirole 2 mg tablet 2 mg PO BID 06/06/23 08/28/23 gabapentin 300 mg capsule 300 mg PO QAM 07/22/23 08/28/23 Previous Rx's Medication Instructions Recorded nebulizers (AeroEclipse II #1 ea 02/05/21 Nebulizer) lancets 28 gauge #100 ea 06/24/21 diaper,brief,adult,disposable #64 ea 05/06/22 albuterol sulfate 90 mcg/actuation 2 puff inhalation Q4-6H PRN 05/17/22 aerosol inhaler (ProAir HFA) shortness of breath or wheezing 30 days #8.5 grams lancets 30 gauge (OneTouch Delica #100 ea 09/16/22 Lancets) blood-glucose meter (OneTouch #1 ea 09/19/22 Ultra2 Meter) pen needle, diabetic 31 gauge x #100 ea 10/14/2209/25 (BD Ultra-Fine Mini Pen Needle) blood sugar diagnostic (OneTouch #100 ea 01/27/23 Ultra Test strips) pen needle, diabetic 31 gauge x #1,200 ea 02/18/2309/25 walker #1 ea 05/20/23 Shower Chair #1 ea 05/27/23 adult diapers large #200 ea 06/30/23 ipratropium 0.5 mg-albuterol 3 mg 3 ml inhalation Q6H PRN 07/22/23 (2.5 mg base)/3 mL nebulization copd/wheezing 30 days #270 mL soln amlodipine 5 mg tablet (Norvasc) 5 mg PO DAILY 30 days #90 tabs 08/06/23 atorvastatin 80 mg tablet 80 mg PO DAILY 90 days #90 tabs 08/06/23 insulin aspart U-100 100 unit/mL See Protocol subcut TID #30 mL 08/06/23 (3 mL) subcutaneous pen (Novolog FlexPen U-100 Insulin aspart) lisinopril 5 mg tablet 5 mg PO DAILY #90 tabs 08/06/23 montelukast 10 mg tablet 10 mg PO DAILY #90 tabs 08/06/23 albuterol sulfate 2.5 mg/3 mL 2.5 mg (3 mL) inhalation Q4-6H PRN 08/18/23 (0.083 %) solution for nebulization shortness of breath or wheezing #75 mL dulaglutide 3 mg/0.5 mL 1.5 mg (0.25 mL) subcut QWEEK 30 08/24/23 subcutaneous pen injector days #1.25 mL cyclobenzaprine 10 mg tablet 10 mg PO TID PRN muscle spasm 7 08/28/23 days #20 tabs insulin glargine 100 unit/mL (3 20 unit (0.2 mL) subcut DAILY #15 08/28/23 mL) subcutaneous pen (Lantus mL Solostar U-100 Insulin) oxycodone-acetaminophen 5 mg-325 1 tab PO TID PRN pain 7 days #20 08/28/23 mg tablet (Percocet) tabs Allergies Allergy/AdvReac Type Severity Reaction Status Date / Time adhesive tape [ADHESIVE TAPE] Allergy Intermediate RASH Verified 09/01/23 12:41 trimethobenzamide Allergy Mild NAUSEA Verified 09/01/23 12:41 [From TIGAN] environmental Allergy Intermediate Nasal Uncoded 09/01/23 12:41 congestion PMFSH Past Medical History Medical History COPD (chronic obstructive pulmonary disease) Respiratory failure with hypoxia Urinary tract infection Hypoxemia Morbid obesity CKD (chronic kidney disease) Anemia COPD exacerbation Allergic rhinitis ALDO (obstructive sleep apnea) Obesity (BMI 30-39.9) Constipation due to opioid therapy Osteoarthritis of left knee Hx SBO Hyperlipidemia CPAP (continuous positive airway pressure) dependence History of adrenal adenoma Osteochondroma of left femur Arthritis Diabetes Elevated cholesterol History of restless legs syndrome History of diverticulitis GERD (gastroesophageal reflux disease) Surgical History H/O excision of mass History of oophorectomy History of cholecystectomy History of appendectomy History of arthroscopy of left knee History of partial colectomy Hx of cataract extraction H/O exploratory laparotomy H/O colonoscopy History of surgery History of hysterectomy Family History Family History Father HTN (hypertension) Diabetes mellitus Mother HTN (hypertension) Liver cancer Social History Social History 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 Other:: EX Housing: Apartment Are you a primary client care manager to a significant other at home: No Do you presently have visiting nurse or other home services: No Unable to assess alcohol history related to: Unknown Alcohol intake: never Comment: PT SLEEPING Patient Tobacco Use Status: Never used Tobacco e-Cigarette/Vaping Use: Never Used Second Hand Smoke Exposure: No Advance Directives: No Advance Directives Information Provided: Yes Advance Directives Date on File: 07/08/21 service: No Current occupational status: retired Cognitive needs: No Hearing needs: No Vision needs: No Physical Exam ED Vital Signs: Vital Signs - 24 hr 09/01/23 12:41 09/01/23 13:15 Temperature 98 F Pulse Rate 93 87 Respiratory Rate 19 20 Blood Pressure 110/95 H Pulse Oximetry 97 Oxygen Delivery Method Room Air BMI result Body Mass Index 44.9 Course Course Course Narrative: RME: 73-year-old female oxygen dependent due to COPD with known rib fracture presents to ED for 4 days of coughing with white phlegm. Patient states also states increased urinary frequency. O2 sat at baseline on 2 L which is 98%. Chest CT EKG labs ordered. Medications Administered Discontinued Medications Generic Name Dose Route Start Last Admin Trade Name Freq PRN Reason Stop Dose Admin Albuterol Sulfate 2.5 mg/ 0 mg 09/01/23 13:04 09/01/23 13:13 Albuterol/Ipratropium 3 ml INHALE 09/01/23 13:05 1 dose ONCE ONE Administration Medical Decision Making Lab Data 09/01/23 13:48 09/01/23 13:48 Labs: Lab Results 09/01/23 Range/Units 13:48 WBC 12.4 H (4.8-10.8) X10*3/uL RBC 4.41 (4.20-5.50) X10*6/uL Hgb 12.4 (12.0-16.0) g/dl Hct 39.2 (37.0-47.0) % MCV 88.9 (80.0-98.0) fL MCH 28.1 (27.0-33.0) pg MCHC 31.6 (31.0-35.0) g/dl RDW 12.7 (11.0-16.0) % Plt Count 213 (160-400) X10*3/uL MPV 11.9 (9.4-12.3) fL Immature Gran % (Auto) 0.4 (0.0-0.4) % Neut % (Auto) 67.5 (45-73) % Lymph % (Auto) 24.4 (20-40) % Schuyler % (Auto) 5.1 (2-11) % Eos % (Auto) 2.4 (0-4) % Baso % (Auto) 0.2 (0-2) % Lymph # (Auto) 3.0 (1.2-4.9) X10*3/uL Schuyler # (Auto) 0.6 (0.1-1.2) X10*3/uL Eos # (Auto) 0.3 (0.0-0.4) X10*3/uL Baso # (Auto) 0.0 (0.0-0.2) X10*3/uL Abs Immat Gran (auto) 0.05 H (0.00-0.03) X10*3/uL Absolute Neuts (auto) 8.3 (2.0-8.3) x10*3/uL Absolute Nucleated RBC 0.000 (0.0-0.012) X10*3/uL Nucleated RBC % (auto) 0.0 (0.0-0.2) /100WBC PT 10.9 L (11.1-13.3) SEC INR 0.9 (0.9-1.1) APTT 29.2 (26.0-36.8) SEC Sodium 139 (135-145) mmol/L Potassium 4.9 (3.3-5.1) mmol/L Chloride 100 (96-108) mmol/L Carbon Dioxide 29 (22-29) mmol/L Anion Gap 15 (12-20) BUN 17 H (9-16) mg/dL Creatinine 1.46 H (0.5-1.4) mg/dL Estim Creat Clear Calc 37.3 Estimated GFR 35 Random Glucose 210 H (60-115) mg/dL Calcium 9.1 (8.4-10.2) mg/dL Total Bilirubin 0.2 (0.0-1.0) mg/dL AST 21 (5-31) U/L ALT 20 (0-31) U/L Alkaline Phosphatase 44 (39-117) U/L Troponin I High Sens < 2.7 (<3.5-17.0) ng/L B-Natriuretic Peptide < 10 (<100) pg/mL Total Protein 7.1 (6.5-8.0) g/dL Albumin 3.9 (3.5-5.0) g/dL Discharge Plan Discharge Clinical Impression: URI (upper respiratory infection) Patient Disposition: Left W/O Completing Treatment Prescriptions: No Action (DME) lancets 28 gauge misc See Rx Instructions topical TID Qty: 100 3RF Rx Instructions: once a day (DME) FreeStyle Lite Strips Strip See Rx Instructions .Route Rx Instructions: Use to check blood sugar twice daily and when having symptoms of hypo/hyperglycemia (DME) diaper,brief,adult,disposable Misc See Rx Instructions .Route Qty: 64 5RF Rx Instructions: Use for stress incontinence albuterol sulfate [ProAir HFA] 90 mcg/actuation HFA aerosol inhaler 2 puff inhalation Q4-6H PRN (Reason: shortness of breath or wheezing) 30 Days Qty: 8.5 2RF (DME) lancets [OneTouch Delica Lancets] 30 gauge misc See Rx Instructions .Route Qty: 100 2RF Rx Instructions: Use to check blood sugar twice daily and when having symptoms of hypo/hyperglycemia (DME) blood-glucose meter [OneTouch Ultra2 Meter] [facility] See Rx Instructions .Route Qty: 1 0RF Rx Instructions: Use to check blood sugar twice daily and when having symptoms of hypo/hyperglycemia (DME) pen needle, diabetic [BD Ultra-Fine Mini Pen Needle] 31 gauge x 3/16 needle See Rx Instructions .Route Qty: 100 2RF Rx Instructions: Use to administer insulin twice daily (DME) OneTouch Ultra Test Strip See Rx Instructions .Route Qty: 100 2RF Rx Instructions: Use to check blood sugar twice daily and when having symptoms of hypo/hyperglycemia (DME) walker Mis See Rx Instructions .Route Qty: 1 0RF Rx Instructions: Wheeled walker with seat and brakes (DME) Shower Chair Misc See Rx Instructions .Route Qty: 1 0RF Rx Instructions: Shower chair with back and arm rests (DME) adult diapers large large See Rx Instructions .Route .MEDSUPPLY Qty: 200 6RF Rx Instructions: Use up to 6/day amlodipine [Norvasc] 5 mg tablet 5 mg PO DAILY 30 Days Qty: 90 0RF atorvastatin 80 mg tablet 80 mg PO DAILY 90 Days Qty: 90 0RF insulin aspart U-100 [Novolog FlexPen U-100 Insulin] 100 unit/mL (3 mL) insulin pen See Protocol subcut TID Qty: 30 0RF Protocol: Insulin Correction Scale Less than or equal to 110 ---- Give (units): 0 111 to 150 Give (units): 0 151 to 200 Give (units): 2 201 to 250 Give (units): 4 251 to 300 Give (units): 6 301 to 350 Give (units): 8 Greater than 350 Give (units): 10 Call MD if Blood Glucose > : 350 Rx Instructions: Up to 10 units before each meal according to sliding scale montelukast 10 mg tablet 10 mg PO DAILY Qty: 90 1RF lisinopril 5 mg tablet 5 mg PO DAILY Qty: 90 0RF albuterol sulfate 2.5 mg /3 mL (0.083 %) solution for nebulization 2.5 mg inhalation Q4-6H PRN (Reason: shortness of breath or wheezing) Qty: 75 0RF Trulicity 3 mg/0.5 mL pen injector 1.5 mg subcut QWEEK 30 Days Qty: 1.25 0RF insulin glargine [Lantus Solostar U-100 Insulin] 100 unit/mL (3 mL) insulin pen 20 unit subcut DAILY Qty: 15 0RF (DME) AeroEclipse II Nebulizer Misc See Rx Instructions .ROUTE .MEDSUPPLY Qty: 1 0RF Rx Instructions: As directed hydroxyzine pamoate 25 mg capsule 25 mg PO BID trazodone 100 mg tablet 200 mg PO BEDTIME aspirin 81 mg Tablet,Chewable 81 mg PO DAILY cholecalciferol (vitamin D3) 25 mcg (1,000 unit) Capsule 25 mcg PO DAILY multivitamin Tablet 1 tab PO DAILY citalopram 10 mg tablet 10 mg PO DAILY ropinirole 2 mg tablet 2 mg PO BID gabapentin 300 mg capsule 300 mg PO QAM Rx Instructions: 1 in am and 3 at bedtime oxycodone-acetaminophen [Percocet] 5-325 mg tablet 1 tab PO TID PRN (Reason: pain) 7 Days Qty: 20 0RF Rx Instructions: Partial Fill upon patient request. cyclobenzaprine 10 mg tablet 10 mg PO TID PRN (Reason: muscle spasm) 7 Days Qty: 20 0RF (DME) pen needle, diabetic 31 gauge x 3/16 needle See Rx Instructions subcut TID Qty: 1200 1RF Rx Instructions: 4x a day bupropion HCl 150 mg tablet extended release 24 hr 150 mg PO DAILY (DME) oxygen-air delivery systems Device See Rx Instructions .ROUTE .MEDSUPPLY Qty: 1 Rx Instructions: As directed ipratropium-albuterol 0.5 mg-3 mg(2.5 mg base)/3 mL solution for nebulization 3 ml inhalation Q6H PRN (Reason: copd/wheezing) 30 Days Qty: 270 3RF Discharge Date/Time: 09/01/23 18:12
[2023-09-01] MEDS: Albuterol Sulfate 2.5 MG, Albuterol/Iprat 2.5/0.5MG 3 ML 3 ML INHALE (13:13)
[2023-09-01 13:15] VITALS: PULSE 87; RESP 20; O2SAT 100
--- OUTSIDE RECORDS SUMMARY | 2023-09-01 13:53 | XMS_ITS | Patient Health Record ---
Author Name Unknown [facility] Address [address] [place] [address] Care Team Providers Care Inspector Conveyor Line Name Role Phone Chris BROWNE, [facility] Primary Care Provider Nik Horner Unavailable [phone] ALLERGIES No Known Allergies REASON FOR REFERRAL [...] Route Administration Date Status Comme nts COVID-19 [employer] Vaccine Unknown 05/10/2021 Administered 1st 08/21/2020 2nd [...] confirmed Acquired hammer toe of right foot ([id number] 5) Problem Other hammer toe(s) (acquired), left foot (M20.42) Active confirmed Acquired hamme r toe of left foot ([id number] 3) Problem Type 2 diabetes mellitus without complication (E11.9) Active confirmed Type 2 diabetes mellitus without complication (185269785) PLAN OF TREATMENT Pending Test Test Name Order Date [id number] NAIL, 6 OR MORE 09/21/2020 [id number] NAIL, 6 OR MORE 12/21/2020 [id number] NAIL, 6 OR MORE 05/17/2021 [id number] NAIL, 6 OR MORE 08/23/2021 [id number] NAIL, 6 OR MORE 01/28/2022 [id number] NAIL, 6 OR MORE 05/11/2020 Insurance Providers Payer Name Payer Address Payer Phone Subscriber Number Group Number Insured Name Patient Relationship to Insured Coverage Start Date Coverage End Date [employer] [address] [place] [address] [id number] [employer] [place] Self - patient is the insured MEDICAL (GENERAL) HISTORY Medical History History ICD Code Lung disease COPD CAD Depression Restless Leg type II diabetes Surgical History Surgery Date(Month/Year) teeth extraction Surgery 2019 Left Knee Replacement Hospitalization History Reason Date(Month/Year) [facility] - pneumonia/ high sugars 15 days [facility] fell about a week 01/2022
--- OUTSIDE RECORDS SUMMARY | 2023-09-01 13:53 | XMS_ITS | Patient Health Record ---
Author Name Unknown Organization [facility] Address [address] [place] [address] Care Team Providers Care Renewable Energy Engineer Name Role Phone José Manuel Bowman MD Primary Care Provider UnavailEllis Bernabe Unavailable [phone] Wallace Graham MD Unavailable Unavailable ALLERGIES Allergen (clinical drug ingredient) [...] Ulcerative colitis (K51.90) Active confirmed Ulcerative colitis ([id number]) PLAN OF TREATMENT No Information Insurance Providers Payer Name Payer Address Payer Phone Subscriber Number Group Number Insured Name Patient Relationship to Insured Coverage Start Date Coverage End Date MEDICARE OF [place] [address] [place] [phone] [id number] DESMOND BROOKE Self - patient is the insured MEDICAID OF [facility] [address] [place] [phone] [id number] DESMOND BROOKE Self - patient is the insured MEDICAL (GENERAL) HISTORY Medical History History ICD Code colonoscopy 11-09-2006 gerd Surgical History Surgery Date(Month/Year) cholecystectomy hysterectomy with oophorectomy D&C and tubal ligation
[2023-09-01 13:54] LABS: MANUAL DIFF FLAG NO
[2023-09-01 13:55] LABS: Basophils Percent Auto 0.2 % (0-2); Eosinophils Absolute Auto 0.3 X10*3/uL (0.0-0.4); Eosinophils Percent Auto 2.4 % (0-4); Hematocrit 39.2 % (37.0-47.0); Hemoglobin 12.4 g/dl (12.0-16.0); Imm Gran Abs Auto 0.05 X10*3/uL (0.00-0.03); Imm Gran Pct Auto 0.4 % (0.0-0.4); Lymphocytes Percent Auto 24.4 % (20-40); Mean Corpuscular HGB Conc 31.6 g/dl (31.0-35.0); Mean Corpuscular Hemoglobin 28.1 pg (27.0-33.0); Mean Corpuscular Volume 88.9 fL (80.0-98.0); Mean Platelet Volume 11.9 fL (9.4-12.3); Monocytes Absolute Auto 0.6 X10*3/uL (0.1-1.2); Monocytes Percent Auto 5.1 % (2-11); Neutrophils Absolute Auto 8.3 x10*3/uL (2.0-8.3); Neutrophils Percent Auto 67.5 % (45-73); Platelet Count 213 X10*3/uL (160-400); Red Blood Count 4.41 X10*6/uL (4.20-5.50); Red Cell Distribution Width 12.7 % (11.0-16.0); White Blood Count 12.4 X10*3/uL (4.8-10.8)
[2023-09-01 14:09] LABS: Alanine Aminotransferase 20 U/L (0-31); Albumin Level 3.9 g/dL (3.5-5.0); Alkaline Phosphatase 44 U/L (39-117); Anion Gap 15 (12-20); Aspartate Amino Transferase 21 U/L (5-31); Bilirubin Total 0.2 mg/dL (0.0-1.0); Blood Urea Nitrogen 17 mg/dL (9-16); Calcium 9.1 mg/dL (8.4-10.2); Carbon Dioxide 29 mmol/L (22-29); Chloride 100 mmol/L (96-108); Creatinine Clr Calc Pharmacy 37.3; Estimated Glomerular Filt Rate 35; Glucose Random 210 mg/dL (60-115); INTERNATIONAL NORM RATIO 0.9 (0.9-1.1); Potassium 4.9 mmol/L (3.3-5.1); Prothrombin Time 10.9 SEC (11.1-13.3); Sodium 139 mmol/L (135-145); Total Protein 7.1 g/dL (6.5-8.0)
[2023-09-01 14:12] LABS: Partial Thromboplastin Time 29.2 SEC (26.0-36.8)
[2023-09-01 14:15] LABS: B Type Natriuretic Peptide < 10 pg/mL (<100)
[2023-09-01 14:21] LABS: Troponin-I High Sensitivity < 2.7 ng/L (<3.5-17.0)
== END 2023-09-01 18:12 | disposition left against medical advice (07) ==
PROVIDERS: Physician Assistant; Emergency Provider Emergency Medicine; PCP Internal Medicine
DX: J22 Unspecified acute lower respiratory infection (principal); R42 Dizziness and giddiness; R05.9 Cough, unspecified; R35.0 Frequency of micturition; R06.02 Shortness of breath; R10.2 Pelvic and perineal pain; M54.6 Pain in thoracic spine; Z79.899 Other long term (current) drug therapy
CPT/HCPCS: 36415; 71250; 74176; 80053; 83880; 84484; 85025; 85610; 85730; 93005; 94640; 99284

== ENCOUNTER → 2023-09-01 12:47 | Outpatient (BNV) | payer MEDICARE, SELFPAY | PROVIDERS: Emergency Provider Emergency Medicine; PCP Internal Medicine; Visit Provider Internal Medicine Cardiovascular Disease | DX: R06.02 Shortness of breath (principal); R94.31 Abnormal electrocardiogram [ECG] [EKG] | CPT/HCPCS: 93010 ==

== ENCOUNTER 2023-09-01 23:16 | Inpatient (IN) | payer OTHER, SELFPAY ==
--- NOTE | ~2023-09-01 | IR_ITS ---
CLINICAL HISTORY: IV antibiotics. CKD PROCEDURES: 1. Real-time ultrasound guided access into the right internal jugular vein after documentation of selective vessel patency, and permanent imaging storing in the patient records. 2. Placement of a 6 Fr, 19 cm tunneled, dual-lumen power injectable Horton CLINICIAN: Roderick Jerry PA-C MEDICATIONS: -Lidocaine 1% 10 ml, SQ. -Additional details, please see nursing flowsheet. Complications: None. Estimated blood loss: <5 ml Specimens: None. Contrast: None. Fluoroscopy time: 2.4 min PROCEDURE NOTE: The procedure, risks, benefits, and alternatives were carefully explained to the patient and written informed consent was obtained. The patient was placed supine on the fluoroscopy table. A timeout was performed. The right neck and chest was prepped and draped in usual sterile fashion. Local anesthesia was administered to the right neck access site with lidocaine. Under ultrasound guidance, the right internal jugular vein was accessed with a 5 fr micropuncture set. A permanent ultrasound picture was saved. A peel-away sheath was advanced over the wire. The catheter was measured and cut to length. Next, subcutaneous lidocaine was administered to the chest. Using blunt dissection, a subcutaneous tunnel was created that connects from the upper chest to the venotomy site. The catheter was pulled through the tunnel. The catheter was advanced through the sheath, which was subsequent peeled away. The catheter was tested, flushed, and sutured to the skin with its tip in the cavoatrial junction. The venotomy site was closed with surgical glue. A dry sterile dressing was applied to the chest and the venotomy site. A permanent chest fluoroscopic image was saved demonstrating the catheter tip in the cavoatrial junction. The patient was stable after the procedure was transferred back to the floor. IR/IR cvc insert central tunnel IMPRESSION: Placement of a tunneled dual-lumen Horton catheter PLAN: -The catheter may be used immediately. This procedure was performed by Roderick Jerry PA-C, and supervised by Dr. Rosas
[2023-09-01 23:25] VITALS: BP 124/55; PULSE 87; RESP 20; TEMP 36.7; O2SAT 99
[2023-09-01 23:28] VITALS: BP 138/80; PULSE 85; O2SAT 90
[2023-09-01 23:34] VITALS: BP 124/55; PULSE 78; RESP 16; TEMP 36.6; O2SAT 98; BMI 45.9
--- NOTE | 2023-09-01 23:59 | ED.BACK ---
HPI - Back Pain/Injury General Chief Complaint: Back Pain/Injury Stated Complaint: BI-LAT LOWER BACK PAIN,PAIN URINATING Time Seen by Provider: 09/01/23 23:46 Source: patient and EMS Mode of arrival: EMS Limitations: no limitations History of Present Illness HPI Narrative: 73-year-old female came in for evaluation bilateral flank pain. Patient came to the emergency department earlier today had some blood workup and CT of the chest and abdomen then patient decided to go home before seen by a provider because of the long wait in the waiting room patient returned by ambulance to the ED for evaluation of bilateral flank pain that started 3 days ago, patient declined any history of trauma or fall. No dysuria, no frequency urination, no fever, no chills, no blood in the urine. Related Data Home Medications Medication Instructions Recorded Confirmed bupropion HCl 150 mg 24 hr tablet, 150 mg PO DAILY 04/25/20 08/28/23 extended release oxygen-air delivery systems ##1 04/25/20 08/28/23 blood sugar diagnostic (FreeStyle 08/09/21 08/28/23 Lite Strips) aspirin 81 mg chewable tablet 81 mg PO DAILY 10/01/21 08/28/23 trazodone 100 mg tablet 200 mg PO BEDTIME 10/01/21 08/28/23 cholecalciferol (vitamin D3) 25 25 mcg PO DAILY 01/04/22 08/28/23 mcg (1,000 unit) capsule hydroxyzine pamoate 25 mg capsule 25 mg PO BID 08/13/22 08/28/23 citalopram 10 mg tablet 10 mg PO DAILY 06/06/23 08/28/23 multivitamin 1 tab PO DAILY 06/06/23 08/28/23 ropinirole 2 mg tablet 2 mg PO BID 06/06/23 08/28/23 gabapentin 300 mg capsule 300 mg PO QAM 07/22/23 08/28/23 Previous Rx's Medication Instructions Recorded nebulizers (AeroEclipse II #1 ea 02/05/21 Nebulizer) lancets 28 gauge #100 ea 06/24/21 diaper,brief,adult,disposable #64 ea 05/06/22 albuterol sulfate 90 mcg/actuation 2 puff inhalation Q4-6H PRN 05/17/22 aerosol inhaler (ProAir HFA) shortness of breath or wheezing 30 days #8.5 grams lancets 30 gauge (OneTouch Delica #100 ea 09/16/22 Lancets) blood-glucose meter (OneTouch #1 ea 09/19/22 Ultra2 Meter) pen needle, diabetic 31 gauge x #100 ea 10/14/2209/25 (BD Ultra-Fine Mini Pen Needle) blood sugar diagnostic (OneTouch #100 ea 01/27/23 Ultra Test strips) pen needle, diabetic 31 gauge x #1,200 ea 02/18/2309/25 walker #1 ea 05/20/23 Shower Chair #1 ea 05/27/23 adult diapers large #200 ea 06/30/23 ipratropium 0.5 mg-albuterol 3 mg 3 ml inhalation Q6H PRN 07/22/23 (2.5 mg base)/3 mL nebulization copd/wheezing 30 days #270 mL soln amlodipine 5 mg tablet (Norvasc) 5 mg PO DAILY 30 days #90 tabs 08/06/23 atorvastatin 80 mg tablet 80 mg PO DAILY 90 days #90 tabs 08/06/23 insulin aspart U-100 100 unit/mL See Protocol subcut TID #30 mL 08/06/23 (3 mL) subcutaneous pen (Novolog FlexPen U-100 Insulin aspart) lisinopril 5 mg tablet 5 mg PO DAILY #90 tabs 08/06/23 montelukast 10 mg tablet 10 mg PO DAILY #90 tabs 08/06/23 albuterol sulfate 2.5 mg/3 mL 2.5 mg (3 mL) inhalation Q4-6H PRN 08/18/23 (0.083 %) solution for nebulization shortness of breath or wheezing #75 mL dulaglutide 3 mg/0.5 mL 1.5 mg (0.25 mL) subcut QWEEK 30 08/24/23 subcutaneous pen injector days #1.25 mL cyclobenzaprine 10 mg tablet 10 mg PO TID PRN muscle spasm 7 08/28/23 days #20 tabs insulin glargine 100 unit/mL (3 20 unit (0.2 mL) subcut DAILY #15 08/28/23 mL) subcutaneous pen (Lantus mL Solostar U-100 Insulin) oxycodone-acetaminophen 5 mg-325 1 tab PO TID PRN pain 7 days #20 08/28/23 mg tablet (Percocet) tabs Allergies Allergy/AdvReac Type Severity Reaction Status Date / Time adhesive tape [ADHESIVE TAPE] Allergy Intermediate RASH Verified 09/01/23 23:38 trimethobenzamide Allergy Mild NAUSEA Verified 09/01/23 23:38 [From TIGAN] environmental Allergy Intermediate Nasal Uncoded 09/01/23 12:41 congestion Review of Systems Review of Systems: All other systems are reviewed and are negative Constitutional: Reports as per HPI and Reports no additional constitutional complaints Eyes: Reports as per HPI and Reports no additional eye complaints Reports system reviewed and no additional complaints, except as documented Cardiovascular: Reports as per HPI and Reports no additional cardiovascular complaints Respiratory: Reports as per HPI and Reports no additional respiratory complaints Gastrointestinal: Reports as per HPI and Reports no additional gastrointestinal complaints Genitourinary: Reports no additional female genitourinary complaints Musculoskeletal: Reports no additional musculoskeletal complaints Skin/Breast: Reports system reviewed and no additional complaints, except as docu Psychiatric: Reports no additional psychiatric complaints Endocrine: Reports no additional endocrine complaints Hematologic/Lymphatic: Reports no additional hematologic/lymphatic complaints Allergic/Immunologic: Reports no additional allergic/immunologic complaints Reports system reviewed and no additional complaints, except as documented and Reports Abnormal speech present PMFSH Past Medical History Medical History COPD (chronic obstructive pulmonary disease) Respiratory failure with hypoxia Urinary tract infection Hypoxemia Morbid obesity CKD (chronic kidney disease) Anemia COPD exacerbation Allergic rhinitis ALDO (obstructive sleep apnea) Obesity (BMI 30-39.9) Constipation due to opioid therapy Osteoarthritis of left knee Hx SBO Hyperlipidemia CPAP (continuous positive airway pressure) dependence History of adrenal adenoma Osteochondroma of left femur Arthritis Diabetes Elevated cholesterol History of restless legs syndrome History of diverticulitis GERD (gastroesophageal reflux disease) Surgical History H/O excision of mass History of oophorectomy History of cholecystectomy History of appendectomy History of arthroscopy of left knee History of partial colectomy Hx of cataract extraction H/O exploratory laparotomy H/O colonoscopy History of surgery History of hysterectomy Family History Family History Father HTN (hypertension) Diabetes mellitus Mother HTN (hypertension) Liver cancer Social History Social History 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 Other:: EX Housing: Apartment Are you a primary career development facilitator to a significant other at home: No Do you presently have visiting nurse or other home services: No Unable to assess alcohol history related to: Unknown Alcohol intake: never Comment: PT SLEEPING Patient Tobacco Use Status: Never used Tobacco Smoked in Last 30 Days: No e-Cigarette/Vaping Use: Never Used Second Hand Smoke Exposure: No Use of substances other than those prescribed or required for medical reasons: No Advance Directives: No Advance Directives Information Provided: No Advance Directives Date on File: 07/08/21 service: No Current occupational status: retired Cognitive needs: No Hearing needs: No Vision needs: No Physical Exam Vital Signs: Vital Signs: Last Vital Signs Temp 98.0 F 09/02/23 06:15 Pulse 85 09/02/23 06:15 Resp 16 09/02/23 06:15 BP 122/58 L 09/02/23 06:15 Pulse Ox 99 09/02/23 06:15 O2 Del Method Room Air, Nasal C annula 09/02/23 06:15 O2 Flow Rate 2 09/02/23 06:15 BMI result Body Mass Index 45.9 Vital signs have been reviewed and appear to be correct. Blood pressure elevated. Heart rate normal. Respiratory rate normal. Temperature normal. Oxygen saturation normal. Appearance: Alert. Oriented X3. No acute distress. Head: Normal external exam. Normocephalic. Atraumatic. No Hammer signs noted. No raccoon eyes noted Eyes: PERRLA. EOMI. Conjunctiva and sclera normal. Eyelids normal. ENT: TM's Normal. Pharynx normal. Uvula midline. Moist mucous membranes. No trismus noted. No drooling noted. No muffled voice noted. Neck: Normal inspection. Neck supple. FROM. No adenopathy. Thyroid Normal. No meningeal signs. No neck mass noted. CVS: Normal heart rate and rhythm. Heart sound normal. No murmurs noted. Pulses normal throughout. Respiratory: No respiratory distress. Painless inspiration. Breath sounds normal. No wheezes/rales/rhonchi noted. Chest nontender. No accessory muscle usage noted or decreased air movement noted. Abdomen: Soft and nontender. Bowel sounds normal in all 4 quadrants. No distention noted. No organomegaly noted. No visible injury noted. Back: No CVA tenderness. Full range of motion noted. Skin: Skin warm and dry. Normal skin color. Normal skin turgor. No rashes/lesions/lacerations noted. Extremities: No lower extremity edema. Extremities exhibit normal range of motion. Extremities nontender. Neuro: Oriented X 3. Cranial nerve exam: II-XII are grossly intact No motor deficit. No sensory deficit. Reflexes normal. Course Reevaluation(s) Reevaluation #1: A 73-year-old female was history of multiple ED visits presented today with nontraumatic bilateral flank pain, UA is showing UTI, exam is consistent with pyelonephritis, patient meets SIRS criteria without severe sepsis or septic shock. Will admit for IV ceftriaxone and pain control. Time: 07:01 Medications Administered Discontinued Medications Generic Name Dose Route Start Last Admin Trade Name Freq PRN Reason Stop Dose Admin Sodium Chloride 1,000 mls @ 999 mls/hr 09/02/23 04:31 09/02/23 06:46 Ns IV 09/02/23 05:31 Infused .Q1H1M ONE Infusion Ceftriaxone Sodium 1 gm/ 50 mls @ 100 mls/hr 09/02/23 04:31 09/02/23 05:57 Sodium Chloride IV 09/02/23 05:00 Infused ONCE ONE Infusion Morphine Sulfate 1 mg 09/01/23 23:57 09/02/23 02:11 Morphine Sulfate 2 Mg/Ml Cartridge IVPUSH 09/01/23 23:58 1 mg ONCE ONE Administration Protocol Morphine Sulfate 2 mg 09/02/23 04:44 09/02/23 05:00 Morphine Sulfate 2 Mg/Ml Cartridge IVPUSH 09/02/23 04:45 2 mg ONCE ONE Administration Protocol Medical Decision Making Differential Diagnosis Differential Diagnoses: The differential diagnosis associated with the presentation includes (Simple UTI, pyelonephritis, myofascial back pain, kidney stone, colitis, diverticulitis, electrolyte derangement, severe anemia.) Admission/Observation Consideration of admission/observation: Escalation of care including admission/observation considered Consult Healthcare Provider Management of the patient was discussed with: Hospitalist (Dr. Bolton) Lab Data MDM Lab Attestation statement: I reviewed the patient's lab results. Labs: Lab Results 09/02/23 09/02/23 Range/Units 02:06 05:14 POC Glucose 151 H (60-115) mg/dL Urine Color Yellow Urine Appearance Cloudy Urine pH 5.5 (5.0-9.0) Ur Specific Damon 1.020 (1.005-1.025) Urine Protein Negative (Neg-Trace) mg/dL Urine Glucose (UA) >=1000 H (Negative) mg/dL Urine Ketones Negative (Negative) mg/dL Urine Blood Negative (Negative) Urine Nitrite Positive H (Negative) Ur Leukocyte Esterase Moderate (2+) H (Negative) Urine RBC 0-2 (0-2) /HPF Urine WBC >50 H (0-5) /HPF Ur Squamous Epith Cells 3-5 (0-2) /HPF Urine Bacteria 4+ (None Seen) Hyaline Casts 0-2 (0-2) /LPF Independent Interpretation I performed an independent interpretation of an: CT Scan (Abdomen and pelvis:Nonobstructive 6 mm radiopaque calculi lower pole left kidney. There is no evidence of hydronephrosis. Mild degenerative disc changes L5-S1 disc level with vacuum disc phenomena and ventral spondylosis.) Radiology Impression Discussion of test interpretation with radiology: I have reviewed the radiologist's reading. Critical Care Time Critical Care Time Critical Care Time: Yes Total Critical Care Time: 60 Attestation: I spent 60 minutes providing critical care service to the patient, this including time spent at the bedside to evaluate the patient, reassess the patient, monitoring vital signs, review labs, and radiographic studies, counseling the patient/family, discussing the case with consultants, disposition the patient. Discharge Plan Discharge Clinical Impression: Acute pyelonephritis, Severe back pain Patient Disposition: Admitted As Inpatient Prescriptions: No Action (DME) lancets 28 gauge misc See Rx Instructions topical TID Qty: 100 3RF Rx Instructions: once a day (DME) FreeStyle Lite Strips Strip See Rx Instructions .Route Rx Instructions: Use to check blood sugar twice daily and when having symptoms of hypo/hyperglycemia (DME) diaper,brief,adult,disposable Misc See Rx Instructions .Route Qty: 64 5RF Rx Instructions: Use for stress incontinence albuterol sulfate [ProAir HFA] 90 mcg/actuation HFA aerosol inhaler 2 puff inhalation Q4-6H PRN (Reason: shortness of breath or wheezing) 30 Days Qty: 8.5 2RF (DME) lancets [OneTouch Delica Lancets] 30 gauge misc See Rx Instructions .Route Qty: 100 2RF Rx Instructions: Use to check blood sugar twice daily and when having symptoms of hypo/hyperglycemia (DME) blood-glucose meter [OneTouch Ultra2 Meter] Mis See Rx Instructions .Route Qty: 1 0RF Rx Instructions: Use to check blood sugar twice daily and when having symptoms of hypo/hyperglycemia (DME) pen needle, diabetic [BD Ultra-Fine Mini Pen Needle] 31 gauge x 3/16 needle See Rx Instructions .Route Qty: 100 2RF Rx Instructions: Use to administer insulin twice daily (DME) OneTouch Ultra Test Strip See Rx Instructions .Route Qty: 100 2RF Rx Instructions: Use to check blood sugar twice daily and when having symptoms of hypo/hyperglycemia (DME) walker Misc See Rx Instructions .Route Qty: 1 0RF Rx Instructions: Wheeled walker with seat and brakes (DME) Shower Chair Misc See Rx Instructions .Route Qty: 1 0RF Rx Instructions: Shower chair with back and arm rests (DME) adult diapers large large See Rx Instructions .Route .MEDSUPPLY Qty: 200 6RF Rx Instructions: Use up to 6/day amlodipine [Norvasc] 5 mg tablet 5 mg PO DAILY 30 Days Qty: 90 0RF atorvastatin 80 mg tablet 80 mg PO DAILY 90 Days Qty: 90 0RF insulin aspart U-100 [Novolog FlexPen U-100 Insulin] 100 unit/mL (3 mL) insulin pen See Protocol subcut TID Qty: 30 0RF Protocol: Insulin Correction Scale Less than or equal to 110 ---- Give (units): 0 111 to 150 Give (units): 0 151 to 200 Give (units): 2 201 to 250 Give (units): 4 251 to 300 Give (units): 6 301 to 350 Give (units): 8 Greater than 350 Give (units): 10 Call MD if Blood Glucose > : 350 Rx Instructions: Up to 10 units before each meal according to sliding scale montelukast 10 mg tablet 10 mg PO DAILY Qty: 90 1RF lisinopril 5 mg tablet 5 mg PO DAILY Qty: 90 0RF albuterol sulfate 2.5 mg /3 mL (0.083 %) solution for nebulization 2.5 mg inhalation Q4-6H PRN (Reason: shortness of breath or wheezing) Qty: 75 0RF Trulicity 3 mg/0.5 mL pen injector 1.5 mg subcut QWEEK 30 Days Qty: 1.25 0RF insulin glargine [Lantus Solostar U-100 Insulin] 100 unit/mL (3 mL) insulin pen 20 unit subcut DAILY Qty: 15 0RF (DME) AeroEclipse II Nebulizer Misc See Rx Instructions .ROUTE .MEDSUPPLY Qty: 1 0RF Rx Instructions: As directed hydroxyzine pamoate 25 mg capsule 25 mg PO BID trazodone 100 mg tablet 200 mg PO BEDTIME aspirin 81 mg Tablet,Chewable 81 mg PO DAILY cholecalciferol (vitamin D3) 25 mcg (1,000 unit) Capsule 25 mcg PO DAILY multivitamin Tablet 1 tab PO DAILY citalopram 10 mg tablet 10 mg PO DAILY ropinirole 2 mg tablet 2 mg PO BID gabapentin 300 mg capsule 300 mg PO QAM Rx Instructions: 1 in am and 3 at bedtime oxycodone-acetaminophen [Percocet] 5-325 mg tablet 1 tab PO TID PRN (Reason: pain) 7 Days Qty: 20 0RF Rx Instructions: Partial Fill upon patient request. cyclobenzaprine 10 mg tablet 10 mg PO TID PRN (Reason: muscle spasm) 7 Days Qty: 20 0RF (DME) pen needle, diabetic 31 gauge x 3/16 needle See Rx Instructions subcut TID Qty: 1200 1RF Rx Instructions: 4x a day bupropion HCl 150 mg tablet extended release 24 hr 150 mg PO DAILY (DME) oxygen-air delivery systems Device See Rx Instructions .ROUTE .MEDSUPPLY Qty: 1 Rx Instructions: As directed ipratropium-albuterol 0.5 mg-3 mg(2.5 mg base)/3 mL solution for nebulization 3 ml inhalation Q6H PRN (Reason: copd/wheezing) 30 Days Qty: 270 3RF
[2023-09-02] VITALS (9 sets, daily range): BP systolic 114–135; BP diastolic 52–62; PULSE 85–97; RESP 16–22; TEMP 36.4–36.9; O2SAT 95–100
[2023-09-02] MEDS: Morphine Sulfate 2 MG/ML CARTRIDGE 1 MG IVPUSH (02:11)
[2023-09-02 02:14] LABS: Appearance Urine Cloudy; Color Urine Yellow; Glucose Urine UA >=1000 mg/dL (Negative); Leukocyte Esterase Urine Moderate (2+) (Negative); Nitrite Urine Positive (Negative); PH 5.5 (5.0-9.0); UMIC TRIGGER UACC YES; Urine Blood Negative (Negative); Urine Ketones Negative (Negative); Urine Protein Negative (Neg-Trace)
[2023-09-02 03:02] LABS: Bacteria Urine 4+ (None Seen); Hyaline Casts Urine 0-2 /LPF (0-2); RBC Urine 0-2 /HPF (0-2); UACC Culture Trigger YES; WBC Urine >50 /HPF (0-5)
[2023-09-02] MEDS: Morphine Sulfate 2 MG/ML CARTRIDGE IVPUSH ×4 (05:00→22:22)
[2023-09-02] MEDS: 0.9 % Sodium Chloride 1,000 ML 999 ML IV (05:02)
[2023-09-02] MEDS: cefTRIAXone sodium 1 GM in 0.9 % Sodium Chloride 50 ML IV (05:02)
[2023-09-02 05:19] LABS: Glucose, Whole Blood 151 mg/dL (60-115)
[2023-09-02 06:58] LABS: Lactic Acid 1.4 mmol/L (0.5-2.0)
--- NOTE | 2023-09-02 08:42 | P.HPHOSP_ITS ---
History of Present Illness Date of Service: 09/02/23 Chief Complaint: back pain The patient is a 73 year old female with prior UTI and a PMH of DM, COPD/Chronic hypoxic resp failure on 2L, HTN, HLD, CKD3, RLS, Mood disorder and others who presents to [facility] ED for the second time in less than 24 hours with complaints of bilateral flank pain for 2-3 days duration. She endorses associated chills without fevers. She reports urinary urgency and frequency. She reports nausea without vomiting and a decreased overall oral intake. She reports similar symptoms as her prior UTI, however back pain is new. She denies any CP/SOB/Headache/abd. pain. a She inially presented on 09/01/22 AM but left prior to being seen. Her work up in the ED shows an elevated WBC count, normal lactate, SCr at baseline, UA positive for UTI. CT showing a 6mm non-obstructing stone in the lower pole of L kidney, no hydro. She has been given analgesics, IVF and IV antibiotics. She will now be admitted for further care. Review of Systems 2 Review of Systems: Negative except HPI/interval history. [facility] Medical History COPD (chronic obstructive pulmonary disease) Respiratory failure with hypoxia Urinary tract infection Hypoxemia Morbid obesity CKD (chronic kidney disease) Anemia COPD exacerbation Allergic rhinitis ALDO (obstructive sleep apnea) Obesity (BMI 30-39.9) Constipation due to opioid therapy Osteoarthritis of left knee Hx SBO Hyperlipidemia CPAP (continuous positive airway pressure) dependence History of adrenal adenoma Osteochondroma of left femur Arthritis Diabetes Elevated cholesterol History of restless legs syndrome History of diverticulitis GERD (gastroesophageal reflux disease) Family History Father HTN (hypertension) Diabetes mellitus Mother HTN (hypertension) Liver cancer Surgical History H/O excision of mass History of oophorectomy History of cholecystectomy History of appendectomy History of arthroscopy of left knee History of partial colectomy Hx of cataract extraction H/O exploratory laparotomy H/O colonoscopy History of surgery History of hysterectomy Social History 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 Other:: EX Housing: Apartment Are you a primary insurance healthcare representative to a significant other at home: No Do you presently have visiting nurse or other home services: No Unable to assess alcohol history related to: Unknown Alcohol intake: never Comment: PT SLEEPING Patient Tobacco Use Status: Never used Tobacco Smoked in Last 30 Days: No e-Cigarette/Vaping Use: Never Used Second Hand Smoke Exposure: No Use of substances other than those prescribed or required for medical reasons: No Advance Directives: No Advance Directives Information Provided: No Advance Directives Date on File: 07/08/21 service: No Current occupational status: retired Cognitive needs: No Hearing needs: No Vision needs: No Meds Allergies Allergy/AdvReac Type Severity Reaction Status Date / Time adhesive tape [ADHESIVE TAPE] Allergy Intermediate RASH Verified 09/01/23 23:38 trimethobenzamide Allergy Mild NAUSEA Verified 09/01/23 23:38 [From TIGAN] environmental Allergy Intermediate Nasal Uncoded 09/01/23 12:41 congestion Active Medications: Current Medications Enoxaparin Sodium (Enoxaparin Sodium 40 Mg/0.4 Ml Syringe) 40 mg SUBCUT Q24H RANGEL Ceftriaxone Sodium 1 gm/ (Sodium Chloride) 50 mls @ 100 mls/hr IV Q24H RANGEL Sodium Chloride (0.9 % Sodium Chloride Flush 3 Ml Syringe) 3 ml IVFLUSH QSHIFT [facility] Home Medications Medication Instructions Recorded Confirmed Last Taken Type bupropion HCl 150 mg 24 hr tablet, 150 mg PO QPM 04/25/20 09/02/23 09/01/23 History extended release oxygen-air delivery systems ##1 04/25/20 08/28/23 11/22/21 History blood sugar diagnostic (FreeStyle 08/09/21 08/28/23 11/22/21 History Lite Strips) aspirin 81 mg chewable tablet 81 mg PO DAILY 10/01/21 09/02/23 09/01/23 History trazodone 100 mg tablet 200 mg PO BEDTIME 10/01/21 09/02/23 08/31/23 History cholecalciferol (vitamin D3) 25 25 mcg PO DAILY 01/04/22 09/02/23 09/01/23 History mcg (1,000 unit) capsule hydroxyzine pamoate 25 mg capsule 25 mg PO BID 08/13/22 09/02/23 09/01/23 History citalopram 10 mg tablet 10 mg PO DAILY 06/06/23 09/02/23 09/01/23 History multivitamin 1 tab PO DAILY 06/06/23 09/02/23 09/01/23 History gabapentin 300 mg capsule 300 mg PO QAM 07/22/23 09/02/23 09/01/23 History albuterol sulfate 90 mcg/actuation 2 puff inhalation Q4H PRN 09/02/23 09/02/23 Unknown History aerosol inhaler (ProAir HFA) shortness of breath or wheezing gabapentin 300 mg capsule 900 mg PO BEDTIME 09/02/23 09/02/23 09/01/23 History insulin detemir U-100 100 unit/mL 20 unit subcut BEDTIME 09/02/23 09/02/23 09/01/23 History (3 mL) subcutaneous pen (Levemir FlexPen) pantoprazole 20 mg tablet,delayed 20 mg PO BEDTIME 09/02/23 09/02/23 09/01/23 History release pramipexole 0.5 mg tablet 0.5 mg PO TID 09/02/23 09/02/23 09/01/23 History ropinirole 2 mg tablet 2 mg PO BID 09/02/23 09/02/23 09/01/23 History Physical Exam 2 Vital Signs and Narrative: Vital Signs: Last Vital Signs Temp 98.0 F 09/02/23 06:15 Pulse 85 09/02/23 06:15 Resp 16 09/02/23 06:15 BP 122/58 L 09/02/23 06:15 Pulse Ox 99 09/02/23 06:15 O2 Del Method Room Air, Nasal C annula 09/02/23 06:15 O2 Flow Rate 2 09/02/23 06:15 BMI result Body Mass Index 45.9 Const: Other: Constitutional - Awake and Alert, No apparent distress Eyes - PERRLA, EOMI Cardiovascular - S1S2, RRR, No edema Respiratory - Normal lung expansion, Normal respiratory effort, No respiratory distress, CTA bilaterally Gastrointestinal - NT / ND; +BS; No rebound or guarding - L CVA TTP Extremities - no calf tenderness bilaterally, no swelling Musculoskeletal - Normal inspection, normal ROM Skin - Warm/Dry Neurological - Alert & oriented x3, No focal deficit Psychological - Appropriate affect Results Labs 09/02/23 09:42 Labs: Laboratory Results - last 24 hr 09/02/23 09/02/23 09/02/23 02:06 05:14 06:30 POC Glucose 151 H Lactic Acid 1.4 Urine Color Yellow Urine Appearance Cloudy Urine pH 5.5 Ur Specific [place] 1.020 Urine Protein Negative Urine Glucose (UA) >=1000 H Urine Ketones Negative Urine Blood Negative Urine Nitrite Positive H Ur Leukocyte Esterase Moderate (2+) H Urine RBC 0-2 Urine WBC >50 H Ur Squamous Epith Cells 3-5 Urine Bacteria 4+ Hyaline Casts 0-2 Assessment and Plan (1) Sepsis: Status: Acute Plan This is a 73 year old female with multiple UTIs in the past who now presents with the same. She meets SIRS criteria with tachycardia, tachypnea and leukocytosis. She will be admitted for further management. 1. Sepsis due to UTI Meets sepsis with tachycardia, tachypnea and luekocytosis No severe features; SCr is chronically elevated IV rocephin, f/u cultures 2. Non-obstructive 6mm nephrolithiasis will consult urology unclear if her pain is secondary to this vs MSK in nature 3. DM, uncontrolled last A1C 9.9 slidingt scale + POC ADA diet 4. HTN controlled continue baseline meds 5. HLD statin Full Code Endorses her Sons as HCP Patient with sepsis secondary to UTI / nephrolithiasis, which will require 48 hours of IV antibiotics + consultaition with urology. Therefore, admission expected to span 2 midnights and hence, will be admitted as inpatient. Quality Stroke Does the patient have a stroke diagnosis?: No VTE Prior VTE?: No VTE Risk Level:: Medical - moderate - high VTE Device Contraindication: Treatment Not Indicated VTE Drug Contraindication: N/A - Med Ordered
--- OUTSIDE RECORDS SUMMARY | 2023-09-02 08:56 | XMS_ITS | Patient Health Record ---
Author Name Unknown [facility] Address [address] [place] [address] Care Team Providers Care Tapper Bit Name Role Phone Chris BROWNE, [facility] Primary Care Provider Nik Horner Unavailable [phone] ALLERGIES No Known Allergies REASON FOR REFERRAL [...] Route Administration Date Status Comme nts COVID-19 [employer] Vaccine Unknown 05/10/2021 Administered 1st 08/21/2020 2nd [...] confirmed Acquired hammer toe of right foot (701972153441478 5) Problem Other hammer toe(s) (acquired), left foot (M20.42) Active confirmed Acquired hamme r toe of left foot (173437642432675 3) Problem Type 2 diabetes mellitus without complication (E11.9) Active confirmed Type 2 diabetes mellitus without complication (195726726) PLAN OF TREATMENT Pending Test Test Name Order Date [id number] NAIL, 6 OR MORE 09/21/2020 [id number] NAIL, 6 OR MORE 12/21/2020 [id number] NAIL, 6 OR MORE 05/17/2021 [id number] NAIL, 6 OR MORE 08/23/2021 [id number] NAIL, 6 OR MORE 01/28/2022 [id number] NAIL, 6 OR MORE 05/11/2020 Insurance Providers Payer Name Payer Address Payer Phone Subscriber Number Group Number Insured Name Patient Relationship to Insured Coverage Start Date Coverage End Date Medicare [employer] [address] [place] [address] [id number] [employer] [place] Self - patient is the insured MEDICAL (GENERAL) HISTORY Medical History History ICD Code Lung disease COPD CAD Depression Restless Leg type II diabetes Surgical History Surgery Date(Month/Year) teeth extraction Surgery 2019 Left Knee Replacement Hospitalization History Reason Date(Month/Year) [facility] - pneumonia/ high sugars 15 days [facility] fell about a week 01/2022
--- OUTSIDE RECORDS SUMMARY | 2023-09-02 08:56 | XMS_ITS | Patient Health Record ---
Author Name Unknown Organization [facility] Address [address] [place] [address] Care Team Providers Care Vocational Teacher Name Role Phone José Manuel Bowman MD Primary Care Provider UnavailEllis Bernabe Unavailable [phone] Wallace Graham MD Unavailable Unavailable ALLERGIES Allergen [...] Ulcerative colitis (K51.90) Active confirmed Ulcerative colitis (73875830) PLAN OF TREATMENT No Information Insurance Providers Payer Name Payer Address Payer Phone Subscriber Number Group Number Insured Name Patient Relationship to Insured Coverage Start Date Coverage End Date MEDICARE OF [place] [address] [place] [id number] DESMOND BROOKE Self - patient is the insured MEDICAID OF [facility] [address] [place] [phone] [id number] DESMOND BROOKE Self - patient is the insured MEDICAL (GENERAL) HISTORY Medical History History ICD Code colonoscopy 11-09-2006 gerd Surgical History Surgery Date(Month/Year) cholecystectomy hysterectomy with oophorectomy D&C and tubal ligation
--- NOTE | 2023-09-02 09:11 | PHA.MEDREC ---
Pharmacy Consult ? Medication Reconciliation Pharmacy has completed the medication reconciliation. Spoke to patient and confirmed medication list. Patient no longer takes trulicity, takes gabapentin 300 mg in the morning and 900 mg at bedtime. She also injects 20 units of levemir at bedtime.
--- NOTE | 2023-09-02 09:18 | PC.NURSE ---
took over from prev shift. lovenox not verified yet- called pharmacist to inquire if ready to verify
--- NOTE | 2023-09-02 09:19 | PC.NURSE ---
pharm state awaiting renal labs to verify lovenox
--- NOTE | 2023-09-02 09:19 | PC.NURSE ---
Addendum entered by Kym Bermudez 09/02/23 09:24: spoke w phleb. Mariama Original Note: called phlebotomy to notify pt in need of creatinine lab draw. spoke w place change roof bolter. states will come down.
--- NOTE | 2023-09-02 09:46 | PC.NURSE ---
walked to br w/o issue, voided x1. phleb drawing blood at this time
[2023-09-02 10:04] LABS: Estimated Glomerular Filt Rate 38
[2023-09-02] MEDS: Enoxaparin Sodium 40 MG/0.4 ML SYRINGE SUBCUT (10:33)
[2023-09-02] MEDS: Insulin Lispro 100 UNIT/ML 3 ML VIAL SUBCUT ×3 (12:27→22:29)
[2023-09-02 12:28] LABS: Glucose, Whole Blood 187 mg/dL (60-115)
--- NOTE | 2023-09-02 12:35 | PC.NURSE ---
Assumed care of this patient at 1100, patient resting quietly in bed waiting for bed assignment and lunch at this time.
[2023-09-02 14:28] LABS: Glucose, Whole Blood 218 mg/dL (60-115)
[2023-09-02] MEDS: Gabapentin 300 MG CAPSULE PO (15:20)
[2023-09-02] MEDS: buPROPion HCl XL 150 MG TAB.ER.24H PO (15:20)
[2023-09-02] MEDS: Pramipexole Di-HCL 0.25 MG TABLET 0.5 MG PO ×2 (15:20→22:25)
[2023-09-02 16:39] LABS: Glucose, Whole Blood 229 mg/dL (60-115)
[2023-09-02] MEDS: 0.9 % Sodium Chloride Flush 3 ML SYRINGE IVFLUSH ×2 (17:19→22:20)
[2023-09-02 20:23] LABS: Glucose, Whole Blood 178 mg/dL (60-115)
[2023-09-02] MEDS: Gabapentin 300 MG CAPSULE 900 MG PO (22:25)
[2023-09-02] MEDS: rOPINIRole HCL 2 MG TABLET PO (22:25)
[2023-09-02] MEDS: hydrOXYzine HCL 25 MG TABLET PO (22:25)
[2023-09-02] MEDS: Omeprazole 20 MG CAPSULE.DR PO (22:26)
[2023-09-02] MEDS: traZODone HCL 100 MG TABLET 200 MG PO (22:26)
[2023-09-02] MEDS: Insulin Glargine,Hum.rec.anlog 100 UNIT/ML 10 ML VIAL 14 UNIT SUBCUT (22:29)
[2023-09-03 03:41] VITALS: BP 114/60; PULSE 84; RESP 16; TEMP 36.7; O2SAT 96
[2023-09-03] MEDS: Morphine Sulfate 2 MG/ML CARTRIDGE IVPUSH ×5 (04:06→23:32)
[2023-09-03] MEDS: cefTRIAXone sodium 1 GM in 0.9 % Sodium Chloride 50 ML IV (04:17)
[2023-09-03 06:04] LABS: Anion Gap 13 (12-20); Blood Urea Nitrogen 21 mg/dL (9-16); Calcium 9.1 mg/dL (8.4-10.2); Carbon Dioxide 32 mmol/L (22-29); Chloride 100 mmol/L (96-108); Creatinine Clr Calc Pharmacy 38.7; Estimated Glomerular Filt Rate 36; Glucose Random 166 mg/dL (60-115); Potassium 4.4 mmol/L (3.3-5.1); Sodium 141 mmol/L (135-145)
[2023-09-03 07:23] LABS: Glucose, Whole Blood 141 mg/dL (60-115)
[2023-09-03 07:41] VITALS: BP 126/60; PULSE 86; RESP 18; TEMP 37; O2SAT 98
[2023-09-03] MEDS: Enoxaparin Sodium 40 MG/0.4 ML SYRINGE SUBCUT (08:48)
[2023-09-03] MEDS: Atorvastatin Calcium 80 MG TABLET PO (08:48)
[2023-09-03] MEDS: 0.9 % Sodium Chloride Flush 3 ML SYRINGE IVFLUSH ×3 (08:48→20:14)
[2023-09-03] MEDS: Gabapentin 300 MG CAPSULE PO (08:49)
[2023-09-03] MEDS: Montelukast Sodium 10 MG TABLET PO (08:49)
[2023-09-03] MEDS: rOPINIRole HCL 2 MG TABLET PO ×2 (08:49→20:13)
[2023-09-03] MEDS: Pramipexole Di-HCL 0.25 MG TABLET 0.5 MG PO ×3 (08:49→20:13)
[2023-09-03] MEDS: Escitalopram Oxalate 5 MG TABLET PO (08:49)
[2023-09-03] MEDS: Multivitamin TABLET 1 TAB PO (08:49)
[2023-09-03] MEDS: hydrOXYzine HCL 25 MG TABLET PO ×2 (08:49→20:13)
[2023-09-03] MEDS: Aspirin 81 MG TAB.CHEW PO (08:49)
[2023-09-03] MEDS: Cholecalciferol (Vitamin D3) 25 MCG TABLET PO (08:49)
--- NOTE | 2023-09-03 09:37 | MHC.CM.PN ---
IMM 09/03/23 Patient lives alone; but a friend stays with her prn. 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 Her son is her NIGHTMAN. She uses a walker. A HCP has been documented. Patient states that she will not go to [facility] home with [facility]. A family member will provide transportation home.
[2023-09-03] MEDS: Cyclobenzaprine HCl 10 MG TABLET PO (10:40)
[2023-09-03 11:04] LABS: Glucose, Whole Blood 162 mg/dL (60-115)
--- NOTE | 2023-09-03 11:07 | P.CNUR_ITS ---
History of Present Illness Consult details Consult date: 09/03/23 Narrative: Mine is a 73 year old female with prior UTI and a PMH of HTN, HLD, CKD3, RLS, DM, COPD/Chronic hypoxic resp failure on 2L, Mood disorder with complaints of bilateral flank pain for 2-3 days duration. She reports urinary urgency and frequency. She had some nausea without vomiting, denied fever. On evaluation, urine testing consistent with UTI. CT scan imaging left nonobstructing kidney stone. CTAP wo IV contrast: Kidneys: Both kidneys are normal size, position size and position. There is a nonobstructive 6 mm radiopaque calculi lower pole calyx left kidney. No additional radiopaque calculi seen. Both ureters are normal caliber. Bladder: The bladder is nondistended and appears unremarkable. Review of Systems 2 Review of Systems: 10 point ROS negative other stated in th e HPI [facility] Past Medical History Medical History Recurrent UTI COPD (chronic obstructive pulmonary disease) Respiratory failure with hypoxia Urinary tract infection Hypoxemia Morbid obesity CKD (chronic kidney disease) Anemia COPD exacerbation Allergic rhinitis ALDO (obstructive sleep apnea) Obesity (BMI 30-39.9) Constipation due to opioid therapy Osteoarthritis of left knee Hx SBO Hyperlipidemia CPAP (continuous positive airway pressure) dependence History of adrenal adenoma Osteochondroma of left femur Arthritis Diabetes Elevated cholesterol History of restless legs syndrome History of diverticulitis GERD (gastroesophageal reflux disease) Family History Family History Father HTN (hypertension) Diabetes mellitus Mother HTN (hypertension) Liver cancer Surgical History Surgical History H/O excision of mass History of oophorectomy History of cholecystectomy History of appendectomy History of arthroscopy of left knee History of partial colectomy Hx of cataract extraction H/O exploratory laparotomy H/O colonoscopy History of surgery History of hysterectomy Social History Social History 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: Spouse 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 Other:: EX Housing: Apartment Are you a primary md do resident urgent care to a significant other at home: No Do you presently have visiting nurse or other home services: Yes (Home per diem nurse.) Unable to assess alcohol history related to: Unknown Alcohol intake: never Comment: PT SLEEPING Patient Tobacco Use Status: Never used Tobacco e-Cigarette/Vaping Use: Never Used Second Hand Smoke Exposure: No Advance Directives Date on File: 07/08/21 service: No Current occupational status: retired Cognitive needs: No Hearing needs: No Vision needs: No Meds Allergies Allergy/AdvReac Type Severity Reaction Status Date / Time adhesive tape [ADHESIVE TAPE] Allergy Intermediate RASH Verified 09/01/23 23:38 trimethobenzamide Allergy Mild NAUSEA Verified 09/01/23 23:38 [From TIGAN] environmental Allergy Intermediate Nasal Uncoded 09/01/23 12:41 congestion Active Medications: Current Medications Aspirin (Aspirin 81 Mg Tab.Chew) 81 mg PO DAILY [facility] Last Admin: 09/03/23 08:49 Dose: 81 mg Atorvastatin Calcium (Atorvastatin Calcium 80 Mg Tablet) 80 mg PO DAILY [facility] Last Admin: 09/03/23 08:48 Dose: 80 mg Bupropion HCl (Bupropion Hcl Xl 150 Mg Tab.Er.24h) 150 mg PO DAILY@1999 [facility] Last Admin: 09/02/23 15:20 Dose: 150 mg Cyclobenzaprine HCl (Cyclobenzaprine Hcl 10 Mg Tablet) 10 mg PO TID PRN PRN Reason: muscle spasm Last Admin: 09/03/23 10:40 Dose: 10 mg Enoxaparin Sodium (Enoxaparin Sodium 40 Mg/0.4 Ml Syringe) 40 mg SUBCUT Q24H [facility] Last Admin: 09/03/23 08:48 Dose: 40 mg Escitalopram Oxalate (Escitalopram Oxalate 5 Mg Tablet) 5 mg PO DAILY [facility] Last Admin: 09/03/23 08:49 Dose: 5 mg Gabapentin (Gabapentin 300 Mg Capsule) 900 mg PO BEDTIME [facility] Last Admin: 09/02/23 22:25 Dose: 900 mg Gabapentin (Gabapentin 300 Mg Capsule) 300 mg PO DAILY@0900 [facility] Last Admin: 09/03/23 08:49 Dose: 300 mg Hydroxyzine HCl (Hydroxyzine Hcl 25 Mg Tablet) 25 mg PO BID [facility] Last Admin: 09/03/23 08:49 Dose: 25 mg Ceftriaxone Sodium 1 gm/ (Sodium Chloride) 50 mls @ 100 mls/hr IV Q24H [facility] Last Infusion: 02/22/24 04:53 Dose: Infused Insulin Glargine (Insulin Glargine,Hum.Rec.Anlog 100 Unit/Ml 10 Ml Vial) 14 unit SUBCUT BEDTIME [facility] Last Admin: 09/02/23 22:29 Dose: 14 unit Insulin Human Lispro (Insulin Lispro 100 Unit/Ml 3 Ml Vial) 0 unit SUBCUT QIDACHS [facility]; Protocol Last Admin: 09/03/23 07:28 Dose: Not Given Methylprednisolone Sodium Succinate (Methylprednisolone Sod Succ 125 Mg/2 Ml Vial) 60 mg IVPUSH Q6H [facility] Montelukast Sodium (Montelukast Sodium 10 Mg Tablet) 10 mg PO DAILY [facility] Last Admin: 09/03/23 08:49 Dose: 10 mg Morphine Sulfate (Morphine Sulfate 2 Mg/Ml Cartridge) 2 mg IVPUSH Q4H PRN; Protocol PRN Reason: Pain, Severe (Pain Scale 7-10) Last Admin: 09/03/23 08:48 Dose: 2 mg Multivitamins/Vitamin C (Multivitamin Tablet) 1 tab PO DAILY [facility] Last Admin: 09/03/23 08:49 Dose: 1 tab Omeprazole (Omeprazole 20 Mg Capsule.Dr) 20 mg PO BEDTIME [facility] Last Admin: 09/02/23 22:26 Dose: 20 mg Pramipexole Dihydrochloride (Pramipexole Di-Hcl 0.25 Mg Tablet) 0.5 mg PO TID [facility] Last Admin: 09/03/23 08:49 Dose: 0.5 mg Ropinirole HCl (Ropinirole Hcl 2 Mg Tablet) 2 mg PO BID [facility] Last Admin: 09/03/23 08:49 Dose: 2 mg Sodium Chloride (0.9 % Sodium Chloride Flush 3 Ml Syringe) [facility] Last Admin: 09/03/23 08:48 Dose: 3 ml Trazodone HCl (Trazodone Hcl 100 Mg Tablet) 200 mg PO BEDTIME [facility] Last Admin: 09/02/23 22:26 Dose: 200 mg Vitamin D (Cholecalciferol (Vitamin D3) 25 Mcg Tablet) 25 mcg PO DAILY [facility] Last Admin: 09/03/23 08:49 Dose: 25 mcg Home Medications Medication Instructions Recorded Confirmed Last Taken Type bupropion HCl 150 mg 24 hr tablet, 150 mg PO QPM 04/25/20 09/02/23 09/01/23 History extended release oxygen-air delivery systems ##1 04/25/20 08/28/23 11/22/21 History blood sugar diagnostic (FreeStyle 08/09/21 08/28/23 11/22/21 History Lite Strips) aspirin 81 mg chewable tablet 81 mg PO DAILY 10/01/21 09/02/23 09/01/23 History trazodone 100 mg tablet 200 mg PO BEDTIME 10/01/21 09/02/23 08/31/23 History cholecalciferol (vitamin D3) 25 25 mcg PO DAILY 01/04/22 09/02/23 09/01/23 History mcg (1,000 unit) capsule hydroxyzine pamoate 25 mg capsule 25 mg PO BID 08/13/22 09/02/23 09/01/23 History citalopram 10 mg tablet 10 mg PO DAILY 06/06/23 09/02/23 09/01/23 History multivitamin 1 tab PO DAILY 06/06/23 09/02/23 09/01/23 History gabapentin 300 mg capsule 300 mg PO QAM 07/22/23 09/02/23 09/01/23 History albuterol sulfate 90 mcg/actuation 2 puff inhalation Q4H PRN 09/02/23 09/02/23 Unknown History aerosol inhaler (ProAir HFA) shortness of breath or wheezing gabapentin 300 mg capsule 900 mg PO BEDTIME 09/02/23 09/02/23 09/01/23 History insulin detemir U-100 100 unit/mL 20 unit subcut BEDTIME 09/02/23 09/02/23 09/01/23 History (3 mL) subcutaneous pen (Levemir FlexPen) pantoprazole 20 mg tablet,delayed 20 mg PO BEDTIME 09/02/23 09/02/23 09/01/23 History release pramipexole 0.5 mg tablet 0.5 mg PO TID 09/02/23 09/02/23 09/01/23 History ropinirole 2 mg tablet 2 mg PO BID 09/02/23 09/02/23 09/01/23 History Physical Exam 2 Vital Signs: Vital Signs: Last Vital Signs Temp 98.6 F 09/03/23 07:41 Pulse 86 09/03/23 07:41 Resp 18 09/03/23 07:41 BP 126/60 09/03/23 07:41 Pulse Ox 98 09/03/23 07:41 O2 Del Method Nasal Cannula 09/03/23 07:41 O2 Flow Rate 2 09/03/23 07:41 BMI result Body Mass Index 45.9 Const: General: cooperative, healthy appearing and no acute distress O rientation/consciousness: patient oriented x3 HEENT: Head: Yes normal to inspection, Yes normocephalic and Yes atraumatic Eyes: Conjunctivae: conjunctivae normal Neck: Neck: Yes normal visual inspection and Yes trachea midline Chest: Chest palpation & inspection: normal inspection of the chest Resp: Other: Nasal cannula in place Effort & Inspection: normal respiratory effort Cardio: Rate: regular rate GI: Inspection: Yes normal to inspection : General: Yes CVA tenderness Back/Spine/Pelvis: Back: CVA tenderness Skin: General skin exam: no rashes or lesions noted Neuro: General: patient oriented x3 Psych: Appearance: grossly normal Results Labs 09/03/23 05:22 Labs: Abnormal lab results 09/02/23 09/02/23 09/02/23 Range/Units 12:20 14:23 16:32 Carbon Dioxide (22-29) mmol/L BUN (9-16) mg/dL Creatinine (0.5-1.4) mg/dL POC Glucose 187 H 218 H 229 H (60-115) mg/dL Random Glucose (60-115) mg/dL 09/02/23 09/03/23 09/03/23 Range/Units 20:14 05:22 07:19 Carbon Dioxide 32 H (22-29) mmol/L BUN 21 H (9-16) mg/dL Creatinine 1.43 H (0.5-1.4) mg/dL POC Glucose 178 H 141 H (60-115) mg/dL Random Glucose 166 H (60-115) mg/dL 09/03/23 Range/Units 10:57 Carbon Dioxide (22-29) mmol/L BUN (9-16) mg/dL Creatinine (0.5-1.4) mg/dL POC Glucose 162 H (60-115) mg/dL Random Glucose (60-115) mg/dL BMP 09/03/23 05:22 Sodium 141 Potassium 4.4 Chloride 100 Carbon Dioxide 32 H BUN 21 H Creatinine 1.43 H Calcium 9.1 Urine 09/02/23 Range/Units 02:06 Urine Color Yellow Urine Appearance Cloudy Urine pH 5.5 (5.0-9.0) Ur Specific [place] 1.020 (1.005-1.025) Urine Protein Negative (Neg-Trace) mg/dL Urine Glucose (UA) >=1000 H (Negative) mg/dL All other labs normal. Imaging Abdomen CT scan report/results: report reviewed and image reviewed CT scan - pelvis: report reviewed and image reviewed Additional studies: Date of Service: 09/01/23 EXAMINATION: CT chest, abdomen and pelvis without IV contrast. CLINICAL INDICATIONS: Urinary frequency. Question kidney stones. COMPARISON: CT abdomen and pelvis 06/27/2023. TECHNIQUE: 5 mm thin axial and reformatted 3 mm thin sagittal coronal images of chest, abdomen pelvis were obtained without contrast. DLP 1305. This CT examination was performed using dose optimization technique as appropriate, variously including the following: Automated exposure control Adjustment of MA and/or KV according to patient size(this includes techniques or standardized protocols for targeted exams where dose is matched to indication/reason for exam; extremities or head. Use of iterative reconstruction techniques. FINDINGS: CHEST: LUNGS: The lungs are well-expanded without acute consolidation, contusion, mass or pulmonary nodules. Pleura: There is no pleural effusion, thickening or pneumothorax. No calcified pleural plaque seen. Mediastinum: The thyroid lobes are symmetrical and normal. The central trachea and bronchi are widely patent. Heart size and the great vessels are normal caliber. There is no pericardial effusion. No abnormal size mediastinal hilar lymph nodes. Axilla: No abnormal size axillary lymph nodes. The chest wall is unremarkable. Osseous structures: No aggressive lytic or sclerotic process seen. Abdomen and pelvis: Liver, ducts and gallbladder: The liver is normal size, contour and density. No focal lesion or intrahepatic ductal dilatation. Spleen: Unremarkable. Pancreas: Unremarkable. Adrenal glands: Unremarkable. Kidneys: Both kidneys are normal size, position size and position. There is a nonobstructive 6 mm radiopaque calculi lower pole calyx left kidney. No additional radiopaque calculi seen. Both ureters are normal caliber. Bladder: The bladder is nondistended and appears unremarkable. Lymphovascular structures: Abdominal aorta is normal caliber. No retroperitoneal lymph nodes, hematoma or mass seen. GI tract: There is scattered stool, diverticuli and gas seen throughout the colon. No evidence of distention or diverticulitis. There are annular sutures in the sigmoid colon with widely patent lumen. Small bowel loops are normal caliber. Appendix is not visualized. There is no free fluid or free air seen. Abdominal wall: There is no evidence of hernia. Likely postsurgical changes along the lower anterior abdominal wall. Pelvis: The uterus has been surgically removed. No adnexal mass or free fluid seen. Osseous structures: There is mild degenerative disc changes with vacuum disc phenomena L5-S1 disc level. No aggressive lytic or sclerotic process seen. There is mild degenerative ventral spondylosis lower dorsal spine. IMPRESSION: Unremarkable CT chest exam. Nonobstructive 6 mm radiopaque calculi lower pole left kidney. There is no evidence of hydronephrosis. Mild degenerative disc changes L5-S1 disc level with vacuum disc phenomena and ventral spondylosis. Assessment and Plan (1) Acute pyelonephritis: Status: Acute (2) Kidney stone on left side: Status: Acute (3) Recurrent UTI: Status: Acute Plan urine and blood cultures pending direct antibiotics pending sensitivies, complete 14 day course outpatient fu with Urology for stone management Procedures Date of Service Date of Service: 09/03/23
[2023-09-03] MEDS: methylPREDNISolone Sod Succ 125 MG/2 ML VIAL 60 MG IVPUSH ×3 (11:40→22:34)
[2023-09-03] MEDS: Insulin Lispro 100 UNIT/ML 3 ML VIAL SUBCUT ×3 (11:40→21:01)
--- NOTE | 2023-09-03 14:41 | P.PNIM_ITS ---
Subjective Subjective Date of Service: 09/03/23 Interval History: No acute issues overnight. Still complains of bilateral flank pain Review of Systems Denies chest pain Denies shortness of breath Denies nausea vomiting diarrhea Denies fever chills Physical Exam 2 Vital Signs: Vital Signs: Last Vital Signs Temp 98.6 F 09/03/23 07:41 Pulse 86 09/03/23 07:41 Resp 18 09/03/23 07:41 BP 126/60 09/03/23 07:41 Pulse Ox 98 09/03/23 07:41 O2 Del Method Nasal Cannula 09/03/23 07:41 O2 Flow Rate 2 09/03/23 07:41 BMI result Body Mass Index 45.9 Const: Other: Awake alert no acute distress Resp: Other: Scattered expiratory wheezes throughout Cardio: Other: No S4; positive S1-S2; no S3 murmurs rubs or gallops GI: Other: Soft nontender nondistended normoactive bowel sounds Extrem: Other: No edema bilaterally Objective Data Active Medications Albuterol/Ipratropium (Albuterol/Iprat 2.5/0.5mg 3 Ml Ampul.Neb) 3 ml INHALE RQ4H WHILE AWAKE [facility] Aspirin (Aspirin 81 Mg Tab.Chew) 81 mg PO DAILY [facility] Last Admin: 09/03/23 08:49 Dose: 81 mg Documented By: MARY GRACE Atorvastatin Calcium (Atorvastatin Calcium 80 Mg Tablet) 80 mg PO DAILY [facility] Last Admin: 09/03/23 08:48 Dose: 80 mg Documented By: MARY GRACE Bupropion HCl (Bupropion Hcl Xl 150 Mg Tab.Er.24h) 150 mg PO DAILY@1999 [facility] Last Admin: 09/02/23 15:20 Dose: 150 mg Documented By: LEONILA Cyclobenzaprine HCl (Cyclobenzaprine Hcl 10 Mg Tablet) 10 mg PO TID PRN PRN Reason: muscle spasm Last Admin: 09/03/23 10:40 Dose: 10 mg Documented By: MARY GRACE Enoxaparin Sodium (Enoxaparin Sodium 40 Mg/0.4 Ml Syringe) 40 mg SUBCUT Q24H [facility] Last Admin: 09/03/23 08:48 Dose: 40 mg Documented By: MARY GRACE Escitalopram Oxalate (Escitalopram Oxalate 5 Mg Tablet) 5 mg PO DAILY [facility] Last Admin: 09/03/23 08:49 Dose: 5 mg Documented By: MARY GRACE Gabapentin (Gabapentin 300 Mg Capsule) 900 mg PO BEDTIME [facility] Last Admin: 09/02/23 22:25 Dose: 900 mg Documented By: SHANA Gabapentin (Gabapentin 300 Mg Capsule) 300 mg PO DAILY@0900 [facility] Last Admin: 09/03/23 08:49 Dose: 300 mg Documented By: MARY GRACE Hydroxyzine HCl (Hydroxyzine Hcl 25 Mg Tablet) 25 mg PO BID [facility] Last Admin: 09/03/23 08:49 Dose: 25 mg Documented By: MARY GRACE Ceftriaxone Sodium 1 gm/ (Sodium Chloride) 50 mls @ 100 mls/hr IV Q24H [facility] Last Infusion: 09/03/23 04:53 Dose: Infused Documented By: SHANA Insulin Glargine (Insulin Glargine,Hum.Rec.Anlog 100 Unit/Ml 10 Ml Vial) 14 unit SUBCUT BEDTIME [facility] Last Admin: 09/02/23 22:29 Dose: 14 unit Documented By: SHANA Insulin Human Lispro (Insulin Lispro 100 Unit/Ml 3 Ml Vial) 0 unit SUBCUT QIDACHS [facility]; Protocol Last Admin: 09/03/23 11:40 Dose: 2 unit Documented By: BEAR Methylprednisolone Sodium Succinate (Methylprednisolone Sod Succ 125 Mg/2 Ml Vial) 60 mg IVPUSH Q6H [facility] Last Admin: 09/03/23 11:40 Dose: 60 mg Documented By: BEAR Montelukast Sodium (Montelukast Sodium 10 Mg Tablet) 10 mg PO DAILY [facility] Last Admin: 09/03/23 08:49 Dose: 10 mg Documented By: MARY GRACE Morphine Sulfate (Morphine Sulfate 2 Mg/Ml Cartridge) 2 mg IVPUSH Q4H PRN; Protocol PRN Reason: Pain, Severe (Pain Scale 7-10) Last Admin: 09/03/23 13:07 Dose: 2 mg Documented By: MARY GRACE Multivitamins/Vitamin C (Multivitamin Tablet) 1 tab PO DAILY [facility] Last Admin: 09/03/23 08:49 Dose: 1 tab Documented By: MARY GRACE Omeprazole (Omeprazole 20 Mg Capsule.) 20 mg PO BEDTIME [facility] Last Admin: 09/02/23 22:26 Dose: 20 mg Documented By: SHANA Pramipexole Dihydrochloride (Pramipexole Di-Hcl 0.25 Mg Tablet) 0.5 mg PO TID [facility] Last Admin: 09/03/23 08:49 Dose: 0.5 mg Documented By: MARY GRACE Ropinirole HCl (Ropinirole Hcl 2 Mg Tablet) 2 mg PO BID [facility] Last Admin: 09/03/23 08:49 Dose: 2 mg Documented By: MARY GRACE Sodium Chloride (0.9 % Sodium Chloride Flush 3 Ml Syringe) 3 ml IVFLUSH QSHIFT [facility] Last Admin: 09/03/23 08:48 Dose: 3 ml Documented By: MARY GRACE Trazodone HCl (Trazodone Hcl 100 Mg Tablet) 200 mg PO BEDTIME [facility] Last Admin: 09/02/23 22:26 Dose: 200 mg Documented By: SHANA Vitamin D (Cholecalciferol (Vitamin D3) 25 Mcg Tablet) 25 mcg PO DAILY [facility] Last Admin: 09/03/23 08:49 Dose: 25 mcg Documented By: MARY GRACE Labs 09/03/23 05:22 Labs: Laboratory Results - last 24 hr 09/02/23 09/02/23 09/03/23 16:32 20:14 05:15 Hold Purple Top SEE NOTE Anion Gap Estim Creat Clear Calc Estimated GFR POC Glucose 229 H 178 H Random Glucose Calcium 09/03/23 09/03/23 09/03/23 05:22 07:19 10:57 Hold Purple Top Anion Gap 13 Estim Creat Clear Calc 38.7 Estimated GFR 36 POC Glucose 141 H 162 H Random Glucose 166 H Calcium 9.1 Microbiology Microbiology Results: Microbiology 09/02/23 Unknown Urine Culture - Preliminary Urine clean catch - Urine almaguer top Gram negative alesha 09/02/23 04:54 Blood Culture - Preliminary Blood - Arterial Prelim: GPC Gram Stain only 09/02/23 04:54 Blood Culture - Preliminary Blood - Arterial No growth after 24 hours. Assessment and Plan (1) Sepsis: Status: Acute (2) Recurrent UTI: Status: Acute Plan This is a 73 year old female with multiple UTIs in the past who now presents with the same. She meets SIRS criteria with tachycardia, tachypnea and leukocytosis. She will be admitted for further management. 1. Sepsis due to UTI (preliminary Gram-negative rods) -sepsis resolved -ceftriaxone (2) -await formal culture 2. Non-obstructive 6mm nephrolithiasis -appreciate urology input -continue ceftriaxone; adjust as per culture -outpatient follow-up 3. DMII uncontrolled -acceptable control on current therapies -lispro correctional scale -adjust as indicated 4. HTN -acceptable control -adjust therapies as clinically indicated Full Code Machelle Requires ongoing hospitalization for IV antibiotics to treat likely UTI pending cultures. Also requires IV analgesia at this time Quality Stroke Does the patient have a stroke diagnosis?: No VTE Prior VTE?: No VTE Risk Level:: Medical - moderate - high VTE Device Contraindication: Treatment Not Indicated VTE Drug Contraindication: N/A - Med Ordered
[2023-09-03] MEDS: Albuterol/Iprat 2.5/0.5MG 3 ML AMPUL.NEB INHALE ×2 (15:19→20:26)
[2023-09-03 15:21] VITALS: PULSE 96; RESP 16; O2SAT 94
[2023-09-03 15:26] VITALS: BP 122/56; PULSE 95; RESP 16; TEMP 36.7; O2SAT 94
[2023-09-03 15:47] LABS: Glucose, Whole Blood 250 mg/dL (60-115)
[2023-09-03 19:21] VITALS: BP 130/59; PULSE 99; RESP 16; TEMP 36.4; O2SAT 92
[2023-09-03] MEDS: Omeprazole 20 MG CAPSULE.DR PO (20:13)
[2023-09-03] MEDS: buPROPion HCl XL 150 MG TAB.ER.24H PO (20:13)
[2023-09-03] MEDS: traZODone HCL 100 MG TABLET 200 MG PO (20:13)
[2023-09-03] MEDS: Gabapentin 300 MG CAPSULE 900 MG PO (20:14)
[2023-09-03 20:35] LABS: Glucose, Whole Blood 403 mg/dL (60-115)
[2023-09-03] MEDS: Insulin Glargine,Hum.rec.anlog 100 UNIT/ML 10 ML VIAL 14 UNIT SUBCUT (21:01)
--- NOTE | 2023-09-03 22:01 | PC.NURSE ---
[id number] pt received 10 units lispro per scale and 14 units lantus notified no additional insulin ordered.
[2023-09-04] VITALS (7 sets, daily range): BP systolic 114–131; BP diastolic 53–60; PULSE 78–92; RESP 16–18; TEMP 36.2–36.6; O2SAT 92–96
[2023-09-04] MEDS: Morphine Sulfate 2 MG/ML CARTRIDGE IVPUSH ×3 (03:25→14:54)
[2023-09-04] MEDS: Cyclobenzaprine HCl 10 MG TABLET PO ×3 (03:25→21:10)
[2023-09-04] MEDS: methylPREDNISolone Sod Succ 125 MG/2 ML VIAL 60 MG IVPUSH ×4 (04:55→22:29)
[2023-09-04] MEDS: cefTRIAXone sodium 1 GM in 0.9 % Sodium Chloride 50 ML IV (04:56)
[2023-09-04 07:32] LABS: Glucose, Whole Blood 410 mg/dL (60-115)
[2023-09-04] MEDS: Albuterol/Iprat 2.5/0.5MG 3 ML AMPUL.NEB INHALE ×3 (07:41→20:47)
[2023-09-04] MEDS: Aspirin 81 MG TAB.CHEW PO (07:57)
[2023-09-04] MEDS: Enoxaparin Sodium 40 MG/0.4 ML SYRINGE SUBCUT (07:57)
[2023-09-04] MEDS: Cholecalciferol (Vitamin D3) 25 MCG TABLET PO (07:58)
[2023-09-04] MEDS: Montelukast Sodium 10 MG TABLET PO (07:58)
[2023-09-04] MEDS: Multivitamin TABLET 1 TAB PO (07:58)
[2023-09-04] MEDS: rOPINIRole HCL 2 MG TABLET PO ×2 (07:58→21:10)
[2023-09-04] MEDS: Escitalopram Oxalate 5 MG TABLET PO (07:58)
[2023-09-04] MEDS: Gabapentin 300 MG CAPSULE PO (07:58)
[2023-09-04] MEDS: hydrOXYzine HCL 25 MG TABLET PO ×2 (07:58→21:10)
[2023-09-04] MEDS: Atorvastatin Calcium 80 MG TABLET PO (07:58)
[2023-09-04] MEDS: Pramipexole Di-HCL 0.25 MG TABLET 0.5 MG PO ×3 (07:58→21:09)
[2023-09-04] MEDS: Insulin Lispro 100 UNIT/ML 3 ML VIAL SUBCUT ×4 (07:59→21:16)
[2023-09-04] MEDS: 0.9 % Sodium Chloride Flush 3 ML SYRINGE IVFLUSH ×2 (08:06→21:14)
[2023-09-04 11:25] LABS: Glucose, Whole Blood 416 mg/dL (60-115)
[2023-09-04] MEDS: Insulin Lispro 100 UNIT/ML 3 ML VIAL 10 UNIT SUBCUT (11:59)
--- NOTE | 2023-09-04 12:27 | HO.PM.IMPN ---
Subjective Subjective Date of Service: 09/04/23 Interval History: Continues with mild diffuse abdominal pain and flank pain. Essentially unchanged since admission Review of Systems Denies chest pain Denies shortness of breath Denies nausea vomiting diarrhea Denies fever chills Physical Exam Vital Signs: Vital Signs: Last Vital Signs Temp 97.5 F 09/04/23 07:27 Pulse 78 09/04/23 07:42 Resp 18 09/04/23 07:42 BP 121/58 L 09/04/23 07:27 Pulse Ox 96 09/04/23 07:27 O2 Del Method Nasal Cannula 09/04/23 07:27 O2 Flow Rate 2 09/04/23 07:27 BMI result Body Mass Index 45.9 Const: Other: Awake alert no acute distress Resp: Other: Scattered expiratory wheezes throughout Cardio: Other: No S4; positive S1-S2; no S3 murmurs rubs or gallops GI: Other: Soft nontender nondistended normoactive bowel sounds Extrem: Other: No edema bilaterally Objective Data Active Medications Albuterol/Ipratropium (Albuterol/Iprat 2.5/0.5mg 3 Ml Ampul.Neb) 3 ml INHALE RQ4H WHILE AWAKE [facility] Last Admin: 09/04/23 11:15 Dose: Not Given Documented By: EMMIE Non-Admin Reason: Patient Refused Aspirin (Aspirin 81 Mg Tab.Chew) 81 mg PO DAILY [facility] Last Admin: 09/04/23 07:57 Dose: 81 mg Documented By: MARY GRACE Atorvastatin Calcium (Atorvastatin Calcium 80 Mg Tablet) 80 mg PO DAILY [facility] Last Admin: 09/04/23 07:58 Dose: 80 mg Documented By: MARY GRACE Bupropion HCl (Bupropion Hcl Xl 150 Mg Tab.Er.24h) 150 mg PO DAILY@1999 [facility] Last Admin: 09/03/23 20:13 Dose: 150 mg Documented By: ABRAHAM Cyclobenzaprine HCl (Cyclobenzaprine Hcl 10 Mg Tablet) 10 mg PO TID PRN PRN Reason: muscle spasm Last Admin: 09/04/23 03:25 Dose: 10 mg Documented By: ABRAHAM Enoxaparin Sodium (Enoxaparin Sodium 40 Mg/0.4 Ml Syringe) 40 mg SUBCUT Q24H [facility] Last Admin: 09/04/23 07:57 Dose: 40 mg Documented By: MARY GRACE Escitalopram Oxalate (Escitalopram Oxalate 5 Mg Tablet) 5 mg PO DAILY [facility] Last Admin: 09/04/23 07:58 Dose: 5 mg Documented By: MARY GRACE Gabapentin (Gabapentin 300 Mg Capsule) 900 mg PO BEDTIME [facility] Last Admin: 09/03/23 20:14 Dose: 900 mg Documented By: ABRAHAM Gabapentin (Gabapentin 300 Mg Capsule) 300 mg PO DAILY@0900 [facility] Last Admin: 09/04/23 07:58 Dose: 300 mg Documented By: MARY GRACE Hydroxyzine HCl (Hydroxyzine Hcl 25 Mg Tablet) 25 mg PO BID [facility] Last Admin: 09/04/23 07:58 Dose: 25 mg Documented By: MARY GRACE Ceftriaxone Sodium 1 gm/ (Sodium Chloride) 50 mls @ 100 mls/hr IV Q24H [facility] Last Infusion: 09/04/23 05:35 Dose: Infused Documented By: ABRAHAM Insulin Glargine (Insulin Glargine,Hum.Rec.Anlog 100 Unit/Ml 10 Ml Vial) 14 unit SUBCUT BEDTIME [facility] Last Admin: 09/03/23 21:01 Dose: 14 unit Documented By: ABRAHAM Insulin Human Lispro (Insulin Lispro 100 Unit/Ml 3 Ml Vial) 0 unit SUBCUT QIDACHS [facility]; Protocol Last Admin: 09/04/23 11:59 Dose: 10 unit Documented By: MARY GRACE Methylprednisolone Sodium Succinate (Methylprednisolone Sod Succ 125 Mg/2 Ml Vial) 60 mg IVPUSH Q6H [facility] Last Admin: 09/04/23 10:22 Dose: 60 mg Documented By: MARY GRACE Montelukast Sodium (Montelukast Sodium 10 Mg Tablet) 10 mg PO DAILY [facility] Last Admin: 09/04/23 07:58 Dose: 10 mg Documented By: MARY GRACE Morphine Sulfate (Morphine Sulfate 2 Mg/Ml Cartridge) 2 mg IVPUSH Q4H PRN; Protocol PRN Reason: Pain, Severe (Pain Scale 7-10) Last Admin: 09/04/23 10:26 Dose: 2 mg Documented By: MARY GRACE Multivitamins/Vitamin C (Multivitamin Tablet) 1 tab PO DAILY [facility] Last Admin: 09/04/23 07:58 Dose: 1 tab Documented By: MARY GRACE Omeprazole (Omeprazole 20 Mg Capsule.Dr) 20 mg PO BEDTIME [facility] Last Admin: 09/03/23 20:13 Dose: 20 mg Documented By: ABRAHAM Pramipexole Dihydrochloride (Pramipexole Di-Hcl 0.25 Mg Tablet) 0.5 mg PO TID [facility] Last Admin: 09/04/23 07:58 Dose: 0.5 mg Documented By: MARY GRACE Ropinirole HCl (Ropinirole Hcl 2 Mg Tablet) 2 mg PO BID [facility] Last Admin: 09/04/23 07:58 Dose: 2 mg Documented By: MARY GRACE Sodium Chloride (0.9 % Sodium Chloride Flush 3 Ml Syringe) 3 ml IVFLUSH QSHIFT [facility] Last Admin: 09/04/23 08:06 Dose: 3 ml Documented By: MARY GRACE Trazodone HCl (Trazodone Hcl 100 Mg Tablet) 200 mg PO BEDTIME [facility] Last Admin: 09/03/23 20:13 Dose: 200 mg Documented By: ABRAHAM Vitamin D (Cholecalciferol (Vitamin D3) 25 Mcg Tablet) 25 mcg PO DAILY [facility] Last Admin: 09/04/23 07:58 Dose: 25 mcg Documented By: MARY GRACE Labs 09/03/23 05:22 Labs: Laboratory Results - last 24 hr 09/03/23 09/03/23 09/04/23 15:35 20:28 07:29 POC Glucose 250 H 403 H* 410 H* 09/04/23 11:16 POC Glucose 416 H* Microbiology Microbiology Results: Microbiology 09/02/23 Unknown Urine Culture - Final Urine clean catch - Urine almaguer top Citrobacter freundii Streptococcus viridans group 09/02/23 04:54 Blood Culture - Preliminary Blood - Arterial No growth after 48 hours. 09/02/23 04:54 Blood Culture - Preliminary Blood - Arterial Streptococcus viridans group 09/03/23 05:22 Blood Culture - Preliminary Blood - Venous No growth after 24 hours. 09/03/23 05:22 Blood Culture - Preliminary Blood - Venous No growth after 24 hours. Assessment and Plan (1) Recurrent UTI: Status: Acute (2) Kidney stone on left side: Status: Acute (3) Sepsis: Status: Acute Plan This is a 73 year old female with multiple UTIs in the past who now presents with the same. She meets SIRS criteria with tachycardia, tachypnea and leukocytosis. She will be admitted for further management. 1. Sepsis due to UTI (preliminary Gram-negative rods) -culture C.Freundii resistant CTX (will DC) -start meropenem -ID Consult 2. Non-obstructive 6mm nephrolithiasis -appreciate urology input -continue ceftriaxone; adjust as per culture -outpatient follow-up 3. DMII uncontrolled -acceptable control on current therapies -lispro correctional scale -adjust as indicated 4. HTN -acceptable control -adjust therapies as clinically indicated Full Code Machelle Requires ongoing hospitalization for IV antibiotics to treat likely UTI pending cultures. Also requires IV analgesia at this time Quality Stroke Does the patient have a stroke diagnosis?: No VTE Prior VTE?: No VTE Risk Level:: Medical - moderate - high VTE Device Contraindication: Treatment Not Indicated VTE Drug Contraindication: N/A - Med Ordered
--- NOTE | 2023-09-04 13:56 | MHC.CM.PN ---
per deepika pt to be dcd in 1 to 2 more days plan remins home with new hvns
[2023-09-04 16:09] LABS: Glucose, Whole Blood 298 mg/dL (60-115)
--- NOTE | 2023-09-04 17:22 | P.CNID_ITS ---
History of Present Illness Data of Consult Service Date: 09/04/23 Requesting physician: Nicolas Pavon Primary Care Provider: Shelbi Perez MD HPI Reason for consult: pain left flank,multidrug resistant Citrobacter She presents with one week pain left flank. She has back pain as well. CT scan no OM Small nonobstructing stone. Review of Systems 2 Review of Systems: Yes all other systems are reviewed and are negative PMFSH Past Medical History Medical History Recurrent UTI COPD (chronic obstructive pulmonary disease) Respiratory failure with hypoxia Urinary tract infection Hypoxemia Morbid obesity CKD (chronic kidney disease) Anemia COPD exacerbation Allergic rhinitis ALDO (obstructive sleep apnea) Obesity (BMI 30-39.9) Constipation due to opioid therapy Osteoarthritis of left knee Hx SBO Hyperlipidemia CPAP (continuous positive airway pressure) dependence History of adrenal adenoma Osteochondroma of left femur Arthritis Diabetes Elevated cholesterol History of restless legs syndrome History of diverticulitis GERD (gastroesophageal reflux disease) Family History Family History Father HTN (hypertension) Diabetes mellitus Mother HTN (hypertension) Liver cancer Family history: reviewed and not pertinent Surgical History Surgical History H/O excision of mass History of oophorectomy History of cholecystectomy History of appendectomy History of arthroscopy of left knee History of partial colectomy Hx of cataract extraction H/O exploratory laparotomy H/O colonoscopy History of surgery History of hysterectomy Social History Social History 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: Spouse 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 Other:: EX Housing: Apartment Are you a primary career services officer to a significant other at home: No Do you presently have visiting nurse or other home services: Yes (Home insurance claims assistant.) Unable to assess alcohol history related to: Unknown Alcohol intake: never Comment: PT SLEEPING Patient Tobacco Use Status: Never used Tobacco e-Cigarette/Vaping Use: Never Used Second Hand Smoke Exposure: No Advance Directives Date on File: 07/08/21 service: No Current occupational status: retired Cognitive needs: No Hearing needs: No Vision needs: No Meds Allergies Allergy/AdvReac Type Severity Reaction Status Date / Time adhesive tape [ADHESIVE TAPE] Allergy Intermediate RASH Verified 09/01/23 23:38 trimethobenzamide Allergy Mild NAUSEA Verified 09/01/23 23:38 [From [facility]] environmental Allergy Intermediate Nasal Uncoded 09/01/23 12:41 congestion Active Medications: Current Medications Albuterol/Ipratropium (Albuterol/Iprat 2.5/0.5mg 3 Ml Ampul.Neb) 3 ml INHALE RQ4H WHILE AWAKE [facility] Last Admin: 09/04/23 15:27 Dose: 3 ml Aspirin (Aspirin 81 Mg Tab.Chew) 81 mg PO DAILY [facility] Last Admin: 09/04/23 07:57 Dose: 81 mg Atorvastatin Calcium (Atorvastatin Calcium 80 Mg Tablet) 80 mg PO DAILY [facility] Last Admin: 09/04/23 07:58 Dose: 80 mg Bupropion HCl (Bupropion Hcl Xl 150 Mg Tab.Er.24h) 150 mg PO DAILY@2000 [facility] Last Admin: 09/03/23 20:13 Dose: 150 mg Cyclobenzaprine HCl (Cyclobenzaprine Hcl 10 Mg Tablet) 10 mg PO TID PRN PRN Reason: muscle spasm Last Admin: 09/04/23 13:13 Dose: 10 mg Enoxaparin Sodium (Enoxaparin Sodium 40 Mg/0.4 Ml Syringe) 40 mg SUBCUT Q24H [facility] Last Admin: 09/04/23 07:57 Dose: 40 mg Escitalopram Oxalate (Escitalopram Oxalate 5 Mg Tablet) 5 mg PO DAILY [facility] Last Admin: 09/04/23 07:58 Dose: 5 mg Gabapentin (Gabapentin 300 Mg Capsule) 900 mg PO BEDTIME [facility] Last Admin: 09/03/23 20:14 Dose: 900 mg Gabapentin (Gabapentin 300 Mg Capsule) 300 mg PO DAILY@0900 [facility] Last Admin: 09/04/23 07:58 Dose: 300 mg Hydroxyzine HCl (Hydroxyzine Hcl 25 Mg Tablet) 25 mg PO BID [facility] Last Admin: 09/04/23 07:58 Dose: 25 mg Ceftriaxone Sodium 1 gm/ (Sodium Chloride) 50 mls @ 100 mls/hr IV Q24H [facility] Last Infusion: 09/04/23 05:35 Dose: Infused Meropenem 500 mg/ Sodium (Chloride) 50 mls @ 100 mls/hr IV Q12H [facility] Last Infusion: 09/04/23 14:03 Dose: Infused Insulin Glargine (Insulin Glargine,Hum.Rec.Anlog 100 Unit/Ml 10 Ml Vial) 14 unit SUBCUT BEDTIME [facility] Last Admin: 09/03/23 21:01 Dose: 14 unit Insulin Human Lispro (Insulin Lispro 100 Unit/Ml 3 Ml Vial) 0 unit SUBCUT QIDACHS [facility]; Protocol Last Admin: 09/04/23 16:23 Dose: 6 unit Methylprednisolone Sodium Succinate (Methylprednisolone Sod Succ 125 Mg/2 Ml Vial) 60 mg IVPUSH Q6H [facility] Last Admin: 09/04/23 16:22 Dose: 60 mg Montelukast Sodium (Montelukast Sodium 10 Mg Tablet) 10 mg PO DAILY [facility] Last Admin: 09/04/23 07:58 Dose: 10 mg Morphine Sulfate (Morphine Sulfate 2 Mg/Ml Cartridge) 2 mg IVPUSH Q4H PRN; Protocol PRN Reason: Pain, Severe (Pain Scale 7-10) Last Admin: 09/04/23 14:54 Dose: 2 mg Multivitamins/Vitamin C (Multivitamin Tablet) 1 tab PO DAILY [facility] Last Admin: 09/04/23 07:58 Dose: 1 tab Omeprazole (Omeprazole 20 Mg Capsule.Dr) 20 mg PO BEDTIME [facility] Last Admin: 09/03/23 20:13 Dose: 20 mg Pramipexole Dihydrochloride (Pramipexole Di-Hcl 0.25 Mg Tablet) 0.5 mg PO TID [facility] Last Admin: 09/04/23 14:54 Dose: 0.5 mg Ropinirole HCl (Ropinirole Hcl 2 Mg Tablet) 2 mg PO BID [facility] Last Admin: 09/04/23 07:58 Dose: 2 mg Sodium Chloride (0.9 % Sodium Chloride Flush 3 Ml Syringe) 3 ml IVFLUSH QSHIFT [facility] Last Admin: 09/04/23 14:58 Dose: Not Given Trazodone HCl (Trazodone Hcl 100 Mg Tablet) 200 mg PO BEDTIME [facility] Last Admin: 09/03/23 20:13 Dose: 200 mg Vitamin D (Cholecalciferol (Vitamin D3) 25 Mcg Tablet) 25 mcg PO DAILY [facility] Last Admin: 09/04/23 07:58 Dose: 25 mcg Home Medications Medication Instructions Recorded Confirmed Last Taken Type bupropion HCl 150 mg 24 hr tablet, 150 mg PO QPM 04/25/20 09/02/23 09/01/23 History extended release oxygen-air delivery systems ##1 04/25/20 08/28/23 11/22/21 History blood sugar diagnostic (FreeStyle 08/09/21 08/28/23 11/22/21 History Lite Strips) aspirin 81 mg chewable tablet 81 mg PO DAILY 10/01/21 09/02/23 09/01/23 History trazodone 100 mg tablet 200 mg PO BEDTIME 10/01/21 09/02/23 08/31/23 History cholecalciferol (vitamin D3) 25 25 mcg PO DAILY 01/04/22 09/02/23 09/01/23 History mcg (1,000 unit) capsule hydroxyzine pamoate 25 mg capsule 25 mg PO BID 08/13/22 09/02/23 09/01/23 History citalopram 10 mg tablet 10 mg PO DAILY 06/06/23 09/02/23 09/01/23 History multivitamin 1 tab PO DAILY 06/06/23 09/02/23 09/01/23 History gabapentin 300 mg capsule 300 mg PO QAM 07/22/23 09/02/23 09/01/23 History albuterol sulfate 90 mcg/actuation 2 puff inhalation Q4H PRN 09/02/23 09/02/23 Unknown History aerosol inhaler (ProAir HFA) shortness of breath or wheezing gabapentin 300 mg capsule 900 mg PO BEDTIME 09/02/23 09/02/23 09/01/23 History insulin detemir U-100 100 unit/mL 20 unit subcut BEDTIME 09/02/23 09/02/23 09/01/23 History (3 mL) subcutaneous pen (Levemir FlexPen) pantoprazole 20 mg tablet,delayed 20 mg PO BEDTIME 09/02/23 09/02/23 09/01/23 History release pramipexole 0.5 mg tablet 0.5 mg PO TID 09/02/23 09/02/23 09/01/23 History ropinirole 2 mg tablet 2 mg PO BID 09/02/23 09/02/23 09/01/23 History Physical Exam 2 Vital Signs: Vital Signs: Last Vital Signs Temp 97.2 F 09/04/23 15:33 Pulse 86 09/04/23 15:33 Resp 18 09/04/23 15:33 BP 114/53 L 09/04/23 15:33 Pulse Ox 92 09/04/23 15:33 O2 Del Method Nasal Cannula 09/04/23 15:33 O2 Flow Rate 2 09/04/23 15:33 BMI result Body Mass Index 45.9 GI: Other: left flank pain Results Labs 09/03/23 05:22 Microbiology Microbiology Results: Microbiology 09/02/23 Unknown Urine clean catch - Urine almaguer top Urine Culture - Final Citrobacter freundii Streptococcus viridans group 09/02/23 04:54 Blood - Arterial Blood Culture - Preliminary No growth after 48 hours. 09/02/23 04:54 Blood - Arterial Blood Culture - Preliminary Streptococcus viridans group 09/03/23 05:22 Blood - Venous Blood Culture - Preliminary No growth after 24 hours. 09/03/23 05:22 Blood - Venous Blood Culture - Preliminary No growth after 24 hours. Assessment and Plan (1) Recurrent UTI: Status: Acute (2) Kidney stone on left side: Status: Acute (3) Sepsis: Status: Acute Plan She has probable pyelonephritis left kidney Citrobacter and strep viridans possibly associated with stone. There is small renal stone Would switch to Merem 10 days IV total Ertapenem. Follow Urology.
[2023-09-04 20:04] LABS: Glucose, Whole Blood 329 mg/dL (60-115)
[2023-09-04] MEDS: Gabapentin 300 MG CAPSULE 900 MG PO (21:09)
[2023-09-04] MEDS: traZODone HCL 100 MG TABLET 200 MG PO (21:09)
[2023-09-04] MEDS: Omeprazole 20 MG CAPSULE.DR PO (21:09)
[2023-09-04] MEDS: buPROPion HCl XL 150 MG TAB.ER.24H PO (21:10)
[2023-09-04] MEDS: Insulin Glargine,Hum.rec.anlog 100 UNIT/ML 10 ML VIAL 14 UNIT SUBCUT (21:16)
[2023-09-05] VITALS (12 sets, daily range): BP systolic 125–162; BP diastolic 57–74; PULSE 80–94; RESP 14–24; TEMP 36–37; O2SAT 92–98
[2023-09-05] MEDS: Morphine Sulfate 2 MG/ML CARTRIDGE IVPUSH ×4 (00:04→15:45)
[2023-09-05] MEDS: methylPREDNISolone Sod Succ 125 MG/2 ML VIAL 60 MG IVPUSH ×4 (05:25→22:46)
[2023-09-05 07:26] LABS: Glucose, Whole Blood 393 mg/dL (60-115)
[2023-09-05] MEDS: Albuterol/Iprat 2.5/0.5MG 3 ML AMPUL.NEB INHALE ×4 (07:49→20:39)
[2023-09-05] MEDS: Aspirin 81 MG TAB.CHEW PO (07:54)
[2023-09-05] MEDS: Montelukast Sodium 10 MG TABLET PO (07:54)
[2023-09-05] MEDS: hydrOXYzine HCL 25 MG TABLET PO ×2 (07:55→20:34)
[2023-09-05] MEDS: Gabapentin 300 MG CAPSULE PO (07:55)
[2023-09-05] MEDS: Cholecalciferol (Vitamin D3) 25 MCG TABLET PO (07:55)
[2023-09-05] MEDS: Pramipexole Di-HCL 0.25 MG TABLET 0.5 MG PO ×3 (07:55→20:34)
[2023-09-05] MEDS: Atorvastatin Calcium 80 MG TABLET PO (07:55)
[2023-09-05] MEDS: Multivitamin TABLET 1 TAB PO (07:55)
[2023-09-05] MEDS: rOPINIRole HCL 2 MG TABLET PO ×2 (07:55→20:34)
[2023-09-05] MEDS: Escitalopram Oxalate 5 MG TABLET PO (07:55)
[2023-09-05] MEDS: 0.9 % Sodium Chloride Flush 3 ML SYRINGE IVFLUSH ×3 (07:56→20:37)
[2023-09-05] MEDS: Insulin Lispro 100 UNIT/ML 3 ML VIAL SUBCUT ×4 (07:56→21:17)
[2023-09-05] MEDS: Insulin Lispro 100 UNIT/ML 3 ML VIAL 10 UNIT SUBCUT ×2 (07:56→23:49)
[2023-09-05] MEDS: Enoxaparin Sodium 40 MG/0.4 ML SYRINGE SUBCUT (07:58)
[2023-09-05 11:08] LABS: Glucose, Whole Blood 376 mg/dL (60-115)
[2023-09-05] MEDS: Insulin Glargine,Hum.rec.anlog 100 UNIT/ML 10 ML VIAL 10 UNIT SUBCUT ×2 (11:36→20:36)
--- NOTE | 2023-09-05 13:28 | P.PNIM_ITS ---
Subjective Subjective Date of Service: 09/05/23 Interval History: No acute issues overnight. Slowly improving from pain standpoint. Review of Systems Denies chest pain Denies shortness of breath Denies nausea vomiting diarrhea Denies fever chills Physical Exam 2 Vital Signs: Vital Signs: Last Vital Signs Temp 98.6 F 09/05/23 07:04 Pulse 80 09/05/23 11:07 Resp 18 09/05/23 11:07 BP 138/63 09/05/23 07:04 Pulse Ox 97 09/05/23 07:04 O2 Del Method Nasal Cannula 09/05/23 07:04 O2 Flow Rate 2 09/05/23 07:04 BMI result Body Mass Index 45.9 Const: Other: Awake alert no acute distress Resp: Other: Scattered expiratory wheezes throughout Cardio: Other: No S4; positive S1-S2; no S3 murmurs rubs or gallops GI: Other: Soft nontender nondistended normoactive bowel sounds Extrem: Other: No edema bilaterally Objective Data Active Medications Albuterol/Ipratropium (Albuterol/Iprat 2.5/0.5mg 3 Ml Ampul.Neb) 3 ml INHALE RQ4H WHILE AWAKE [facility] Last Admin: 09/05/23 11:06 Dose: 3 ml Documented By: EMMIE Aspirin (Aspirin 81 Mg Tab.Chew) 81 mg PO DAILY [facility] Last Admin: 09/05/23 07:54 Dose: 81 mg Documented By: MONSE Atorvastatin Calcium (Atorvastatin Calcium 80 Mg Tablet) 80 mg PO DAILY [facility] Last Admin: 09/05/23 07:55 Dose: 80 mg Documented By: MONSE Bupropion HCl (Bupropion Hcl Xl 150 Mg Tab.Er.24h) 150 mg PO DAILY@1999 [facility] Last Admin: 09/04/23 21:10 Dose: 150 mg Documented By: TOOTIE Cyclobenzaprine HCl (Cyclobenzaprine Hcl 10 Mg Tablet) 10 mg PO TID PRN PRN Reason: muscle spasm Last Admin: 09/04/23 21:10 Dose: 10 mg Documented By: TOOTIE Enoxaparin Sodium (Enoxaparin Sodium 40 Mg/0.4 Ml Syringe) 40 mg SUBCUT Q24H [facility] Last Admin: 09/05/23 07:58 Dose: 40 mg Documented By: MONSE Escitalopram Oxalate (Escitalopram Oxalate 5 Mg Tablet) 5 mg PO DAILY [facility] Last Admin: 09/05/23 07:55 Dose: 5 mg Documented By: MONSE Gabapentin (Gabapentin 300 Mg Capsule) 900 mg PO BEDTIME [facility] Last Admin: 09/04/23 21:09 Dose: 900 mg Documented By: TOOTIE Gabapentin (Gabapentin 300 Mg Capsule) 300 mg PO DAILY@0900 [facility] Last Admin: 09/05/23 07:55 Dose: 300 mg Documented By: MONSE Hydroxyzine HCl (Hydroxyzine Hcl 25 Mg Tablet) 25 mg PO BID [facility] Last Admin: 09/05/23 07:55 Dose: 25 mg Documented By: MONSE Meropenem 1 gm/ Sodium (Chloride) 100 mls @ 200 mls/hr IV Q12H [facility] Stop: 09/14/23 00:29 Last Infusion: 09/05/23 12:07 Dose: Infused Documented By: MONSE Insulin Glargine (Insulin Glargine,Hum.Rec.Anlog 100 Unit/Ml 10 Ml Vial) 10 unit SUBCUT BID [facility] Insulin Human Lispro (Insulin Lispro 100 Unit/Ml 3 Ml Vial) 0 unit SUBCUT QIDACHS [facility]; Protocol Last Admin: 09/05/23 11:37 Dose: 10 unit Documented By: MONSE Methylprednisolone Sodium Succinate (Methylprednisolone Sod Succ 125 Mg/2 Ml Vial) 60 mg IVPUSH Q6H [facility] Last Admin: 09/05/23 11:37 Dose: 60 mg Documented By: MONSE Montelukast Sodium (Montelukast Sodium 10 Mg Tablet) 10 mg PO DAILY [facility] Last Admin: 09/05/23 07:54 Dose: 10 mg Documented By: MONSE Morphine Sulfate (Morphine Sulfate 2 Mg/Ml Cartridge) 2 mg IVPUSH Q4H PRN; Protocol PRN Reason: Pain, Severe (Pain Scale 7-10) Last Admin: 09/05/23 11:42 Dose: 2 mg Documented By: MONSE Multivitamins/Vitamin C (Multivitamin Tablet) 1 tab PO DAILY [facility] Last Admin: 09/05/23 07:55 Dose: 1 tab Documented By: MONSE Omeprazole (Omeprazole 20 Mg Capsule.) 20 mg PO BEDTIME [facility] Last Admin: 09/04/23 21:09 Dose: 20 mg Documented By: TOOTIE Pramipexole Dihydrochloride (Pramipexole Di-Hcl 0.25 Mg Tablet) 0.5 mg PO TID [facility] Last Admin: 09/05/23 07:55 Dose: 0.5 mg Documented By: MONSE Ropinirole HCl (Ropinirole Hcl 2 Mg Tablet) 2 mg PO BID [facility] Last Admin: 09/05/23 07:55 Dose: 2 mg Documented By: MONSE Sodium Chloride (0.9 % Sodium Chloride Flush 3 Ml Syringe) 3 ml IVFLUSH QSHIFT [facility] Last Admin: 09/05/23 07:56 Dose: 3 ml Documented By: MONSE Trazodone HCl (Trazodone Hcl 100 Mg Tablet) 200 mg PO BEDTIME [facility] Last Admin: 09/04/23 21:09 Dose: 200 mg Documented By: TOOTIE Vitamin D (Cholecalciferol (Vitamin D3) 25 Mcg Tablet) 25 mcg PO DAILY [facility] Last Admin: 09/05/23 07:55 Dose: 25 mcg Documented By: MONSE Labs 09/03/23 05:22 Labs: Laboratory Results - last 24 hr 09/04/23 09/04/23 09/05/23 16:02 19:54 07:20 POC Glucose 298 H 329 H 393 H* 09/05/23 11:03 POC Glucose 376 H* Microbiology Microbiology Results: Microbiology 09/02/23 04:54 Blood Culture - Preliminary Blood - Arterial Streptococcus viridans group 09/03/23 05:22 Blood Culture - Preliminary Blood - Venous No growth after 48 hours. 09/03/23 05:22 Blood Culture - Preliminary Blood - Venous No growth after 48 hours. 09/02/23 Unknown Urine Culture - Final Urine clean catch - Urine almaguer top Citrobacter freundii Streptococcus viridans group 09/02/23 04:54 Blood Culture - Preliminary Blood - Arterial No growth after 48 hours. Assessment and Plan (1) Recurrent UTI: Status: Acute (2) Sepsis: Status: Acute (3) Diabetes 1.5, managed as type 1: Status: Acute Plan This is a 73 year old female with multiple UTIs in the past who now presents with the same. She meets SIRS criteria with tachycardia, tachypnea and leukocytosis. She will be admitted for further management. 1. Sepsis due to UTI (preliminary Gram-negative rods) -culture C.Freundii resistant CTX (will DC) -start meropenem(1) -ID Consult... 10 day total meropenem/ertapenem 2. Non-obstructive 6mm nephrolithiasis -appreciate urology input -continue meropenem -outpatient follow-up 3. DMII uncontrolled -unacceptable control on current therapies -increase Lantus to 10 units b.i.d. -lispro correctional scale -adjust as indicated 4. HTN -acceptable control -adjust therapies as clinically indicated Full Code Machelle Requires ongoing hospitalization for IV antibiotics to treat likely UTI pending cultures. Also requires IV analgesia at this time Quality Stroke Does the patient have a stroke diagnosis?: No VTE Prior VTE?: No VTE Risk Level:: Medical - moderate - high VTE Device Contraindication: Treatment Not Indicated VTE Drug Contraindication: N/A - Med Ordered
[2023-09-05 17:10] LABS: Glucose, Whole Blood 335 mg/dL (60-115)
[2023-09-05 20:18] LABS: Glucose, Whole Blood 387 mg/dL (60-115)
[2023-09-05] MEDS: traZODone HCL 100 MG TABLET 200 MG PO (20:34)
[2023-09-05] MEDS: buPROPion HCl XL 150 MG TAB.ER.24H PO (20:34)
[2023-09-05] MEDS: Gabapentin 300 MG CAPSULE 900 MG PO (20:34)
[2023-09-05] MEDS: Omeprazole 20 MG CAPSULE.DR PO (20:34)
[2023-09-05] MEDS: Cyclobenzaprine HCl 10 MG TABLET PO (20:35)
[2023-09-05 23:30] LABS: Glucose, Whole Blood 375 mg/dL (60-115)
[2023-09-06] VITALS (8 sets, daily range): BP systolic 131–147; BP diastolic 60–69; PULSE 79–88; RESP 14–18; TEMP 36.2–36.6; O2SAT 95–97
[2023-09-06 02:16] LABS: Glucose, Whole Blood 371 mg/dL (60-115)
[2023-09-06] MEDS: Insulin Lispro 100 UNIT/ML 3 ML VIAL 12 UNIT SUBCUT (02:30)
--- NOTE | 2023-09-06 02:34 | PM.EVENT ---
Event Note Date of Service: 09/06/23 Event Note: Contacted multiple times as the patient has been having persistent hyperglycemia. Long-acting insulin was added as well as insulin with meals plus insulin sliding scale (increased to resistance). Time Spent With Patient Time: Total time managing care of this patient today ____ minutes.
[2023-09-06] MEDS: Morphine Sulfate 2 MG/ML CARTRIDGE IVPUSH ×3 (02:36→23:06)
[2023-09-06] MEDS: 0.9 % Sodium Chloride 500 ML IV (03:33)
[2023-09-06] MEDS: methylPREDNISolone Sod Succ 125 MG/2 ML VIAL 60 MG IVPUSH ×2 (05:11→10:03)
--- NOTE | 2023-09-06 05:29 | PC.NURSE ---
Routine POC at bedtime =387, Dr. Bolton was notified, Lispro sliding scale was revised, Lispro 12 units SC given and schedule Lantus 10 units SC. POC rechecked at [id number], Dr. Bolton was made aware, another Lispro 10 units SC given. POC rechecked at 0200= 371, Dr. Bolton was updated, another Lispro 12 units SC given, NSS 500 ml bolus also was ordered and given.
[2023-09-06 07:21] LABS: Glucose, Whole Blood 224 mg/dL (60-115)
[2023-09-06] MEDS: rOPINIRole HCL 2 MG TABLET PO ×2 (07:49→20:03)
[2023-09-06] MEDS: Multivitamin TABLET 1 TAB PO (07:49)
[2023-09-06] MEDS: Cholecalciferol (Vitamin D3) 25 MCG TABLET PO (07:49)
[2023-09-06] MEDS: Atorvastatin Calcium 80 MG TABLET PO (07:49)
[2023-09-06] MEDS: Gabapentin 300 MG CAPSULE PO (07:49)
[2023-09-06] MEDS: Pramipexole Di-HCL 0.25 MG TABLET 0.5 MG PO ×3 (07:49→20:02)
[2023-09-06] MEDS: hydrOXYzine HCL 25 MG TABLET PO ×2 (07:49→20:02)
[2023-09-06] MEDS: Montelukast Sodium 10 MG TABLET PO (07:49)
[2023-09-06] MEDS: Escitalopram Oxalate 5 MG TABLET PO (07:50)
[2023-09-06] MEDS: Insulin Lispro 100 UNIT/ML 3 ML VIAL SUBCUT ×4 (07:50→20:04)
[2023-09-06] MEDS: Aspirin 81 MG TAB.CHEW PO (07:50)
[2023-09-06] MEDS: Insulin Lispro 100 UNIT/ML 3 ML VIAL 7 UNIT SUBCUT ×4 (07:50→20:03)
[2023-09-06] MEDS: Enoxaparin Sodium 40 MG/0.4 ML SYRINGE SUBCUT (07:51)
[2023-09-06] MEDS: 0.9 % Sodium Chloride Flush 3 ML SYRINGE IVFLUSH ×3 (07:55→20:04)
[2023-09-06] MEDS: Albuterol/Iprat 2.5/0.5MG 3 ML AMPUL.NEB INHALE ×4 (08:22→19:30)
[2023-09-06] MEDS: Insulin Glargine,Hum.rec.anlog 100 UNIT/ML 10 ML VIAL 10 UNIT SUBCUT ×2 (10:07→20:03)
[2023-09-06 11:10] LABS: Glucose, Whole Blood 287 mg/dL (60-115)
--- NOTE | 2023-09-06 12:31 | P.PNIM_ITS ---
Subjective Subjective Date of Service: 09/06/23 Interval History: Still in considerable discomfort. Tolerant of therapies Review of Systems Denies chest pain Denies shortness of breath Denies nausea vomiting diarrhea Denies fever chills Physical Exam 2 Vital Signs: Vital Signs: Last Vital Signs Temp 97.2 F 09/06/23 07:24 Pulse 85 09/06/23 11:42 Resp 18 09/06/23 11:42 BP 135/60 09/06/23 07:24 Pulse Ox 96 09/06/23 07:24 O2 Del Method Nasal Cannula 09/06/23 07:24 O2 Flow Rate 2 09/06/23 07:24 BMI result Body Mass Index 45.9 Const: Other: Awake alert no acute distress Resp: Other: Clear throughout no rales rhonchi, wheezes Cardio: Other: No S4; positive S1-S2; no S3 murmurs rubs or gallops GI: Other: Soft nontender nondistended normoactive bowel sounds Extrem: Other: No edema bilaterally Objective Data Active Medications Albuterol/Ipratropium (Albuterol/Iprat 2.5/0.5mg 3 Ml Ampul.Neb) 3 ml INHALE RQ4H WHILE AWAKE [facility] Last Admin: 09/06/23 11:40 Dose: 3 ml Documented By: INDER Aspirin (Aspirin 81 Mg Tab.Chew) 81 mg PO DAILY [facility] Last Admin: 09/06/23 07:50 Dose: 81 mg Documented By: MONSE Atorvastatin Calcium (Atorvastatin Calcium 80 Mg Tablet) 80 mg PO DAILY [facility] Last Admin: 09/06/23 07:49 Dose: 80 mg Documented By: MONSE Bupropion HCl (Bupropion Hcl Xl 150 Mg Tab.Er.24h) 150 mg PO DAILY@1999 [facility] Last Admin: 09/05/23 20:34 Dose: 150 mg Documented By: LEIGHTON Cyclobenzaprine HCl (Cyclobenzaprine Hcl 10 Mg Tablet) 10 mg PO TID PRN PRN Reason: muscle spasm Last Admin: 09/05/23 20:35 Dose: 10 mg Documented By: LEIGHTON Docusate Sodium (Docusate Sodium 100 Mg Capsule) 100 mg PO BID PRN PRN Reason: Constipation Enoxaparin Sodium (Enoxaparin Sodium 40 Mg/0.4 Ml Syringe) 40 mg SUBCUT Q24H [facility] Last Admin: 09/06/23 07:51 Dose: 40 mg Documented By: MONSE Escitalopram Oxalate (Escitalopram Oxalate 5 Mg Tablet) 5 mg PO DAILY [facility] Last Admin: 09/06/23 07:50 Dose: 5 mg Documented By: MONSE Gabapentin (Gabapentin 300 Mg Capsule) 900 mg PO BEDTIME [facility] Last Admin: 09/05/23 20:34 Dose: 900 mg Documented By: LEIGHTON Gabapentin (Gabapentin 300 Mg Capsule) 300 mg PO DAILY@0900 [facility] Last Admin: 09/06/23 07:49 Dose: 300 mg Documented By: MONSE Hydroxyzine HCl (Hydroxyzine Hcl 25 Mg Tablet) 25 mg PO BID [facility] Last Admin: 09/06/23 07:49 Dose: 25 mg Documented By: MONSE Meropenem 1 gm/ Sodium (Chloride) 100 mls @ 200 mls/hr IV Q12H [facility] Stop: 09/14/23 00:29 Last Infusion: 09/06/23 00:36 Dose: Infused Documented By: LEIGHTON Insulin Glargine (Insulin Glargine,Hum.Rec.Anlog 100 Unit/Ml 10 Ml Vial) 10 unit SUBCUT BID [facility] Last Admin: 09/06/23 10:07 Dose: 10 unit Documented By: MONSE Insulin Human Lispro (Insulin Lispro 100 Unit/Ml 3 Ml Vial) 0 unit SUBCUT QIDACHS [facility]; Protocol Last Admin: 09/06/23 07:50 Dose: 6 unit Documented By: MONSE Insulin Human Lispro (Insulin Lispro 100 Unit/Ml 3 Ml Vial) 7 unit SUBCUT QIDACHS [facility] Last Admin: 09/06/23 07:50 Dose: 7 unit Documented By: MONSE Montelukast Sodium (Montelukast Sodium 10 Mg Tablet) 10 mg PO DAILY [facility] Last Admin: 09/06/23 07:49 Dose: 10 mg Documented By: MONSE Morphine Sulfate (Morphine Sulfate 2 Mg/Ml Cartridge) 2 mg IVPUSH Q4H PRN; Protocol PRN Reason: Pain, Severe (Pain Scale 7-10) Last Admin: 09/06/23 02:36 Dose: 2 mg Documented By: LEIGHTON Multivitamins/Vitamin C (Multivitamin Tablet) 1 tab PO DAILY [facility] Last Admin: 09/06/23 07:49 Dose: 1 tab Documented By: MONSE Omeprazole (Omeprazole 20 Mg Capsule.Dr) 20 mg PO BEDTIME [facility] Last Admin: 09/05/23 20:34 Dose: 20 mg Documented By: LEIGHTON Pramipexole Dihydrochloride (Pramipexole Di-Hcl 0.25 Mg Tablet) 0.5 mg PO TID [facility] Last Admin: 09/06/23 07:49 Dose: 0.5 mg Documented By: MONSE Ropinirole HCl (Ropinirole Hcl 2 Mg Tablet) 2 mg PO BID [facility] Last Admin: 09/06/23 07:49 Dose: 2 mg Documented By: MONSE Sodium Chloride (0.9 % Sodium Chloride Flush 3 Ml Syringe) 3 ml IVFLUSH QSHIFT [facility] Last Admin: 09/06/23 07:55 Dose: 3 ml Documented By: MONSE Trazodone HCl (Trazodone Hcl 100 Mg Tablet) 200 mg PO BEDTIME [facility] Last Admin: 09/05/23 20:34 Dose: 200 mg Documented By: LEIGHTON Vitamin D (Cholecalciferol (Vitamin D3) 25 Mcg Tablet) 25 mcg PO DAILY [facility] Last Admin: 09/06/23 07:49 Dose: 25 mcg Documented By: MONSE Labs 09/03/23 05:22 Labs: Laboratory Results - last 24 hr 09/05/23 09/05/23 09/05/23 16:44 19:55 23:24 POC Glucose 335 H 387 H* 375 H* 09/06/23 09/06/23 09/06/23 02:12 07:16 11:06 POC Glucose 371 H* 224 H 287 H Microbiology Microbiology Results: Microbiology 09/02/23 04:54 Blood Culture - Preliminary Blood - Arterial Streptococcus viridans group 09/03/23 05:22 Blood Culture - Preliminary Blood - Venous No growth after 48 hours. 09/03/23 05:22 Blood Culture - Preliminary Blood - Venous No growth after 48 hours. Assessment and Plan (1) Sepsis: Status: Acute (2) Recurrent UTI: Status: Acute Plan This is a 73 year old female with multiple UTIs in the past who now presents with the same. She meets SIRS criteria with tachycardia, tachypnea and leukocytosis. She will be admitted for further management. 1. Sepsis due to UTI (preliminary Gram-negative rods) -culture C.Freundii resistant CTX (will DC) -start meropenem(2) -ID Consult... 10 day total meropenem/ertapenem 2. Non-obstructive 6mm nephrolithiasis -appreciate urology input -continue meropenem -outpatient follow-up 3. DMII uncontrolled -unacceptable control on current therapies.. Steroids DC add; likely culprit -increase Lantus to 10 units b.i.d. -lispro correctional scale -adjust as indicated 4. HTN -acceptable control -adjust therapies as clinically indicated Full Code Machelle Requires ongoing hospitalization for IV antibiotics to treat likely UTI pending cultures. Also requires IV analgesia at this time Quality Stroke Does the patient have a stroke diagnosis?: No VTE Prior VTE?: No VTE Risk Level:: Medical - moderate - high VTE Device Contraindication: Treatment Not Indicated VTE Drug Contraindication: N/A - Med Ordered
[2023-09-06] MEDS: Docusate Sodium 100 MG CAPSULE PO ×2 (12:46→20:13)
[2023-09-06 16:18] LABS: Glucose, Whole Blood 341 mg/dL (60-115)
[2023-09-06 19:58] LABS: Glucose, Whole Blood 293 mg/dL (60-115)
[2023-09-06] MEDS: Omeprazole 20 MG CAPSULE.DR PO (20:02)
[2023-09-06] MEDS: buPROPion HCl XL 150 MG TAB.ER.24H PO (20:02)
[2023-09-06] MEDS: traZODone HCL 100 MG TABLET 200 MG PO (20:03)
[2023-09-06] MEDS: Gabapentin 300 MG CAPSULE 900 MG PO (20:03)
[2023-09-06] MEDS: Cyclobenzaprine HCl 10 MG TABLET PO (20:13)
[2023-09-07] VITALS (7 sets, daily range): BP systolic 128–146; BP diastolic 57–67; PULSE 75–85; RESP 15–18; TEMP 36.3–36.7; O2SAT 95–98
[2023-09-07] MEDS: Morphine Sulfate 2 MG/ML CARTRIDGE IVPUSH ×2 (04:03→08:50)
[2023-09-07 05:55] LABS: MANUAL DIFF FLAG NO
[2023-09-07 05:59] LABS: Basophils Percent Auto 0.1 % (0-2); Hematocrit 34.2 % (37.0-47.0); Hemoglobin 10.7 g/dl (12.0-16.0); Imm Gran Abs Auto 0.17 X10*3/uL (0.00-0.03); Imm Gran Pct Auto 1.2 % (0.0-0.4); Lymphocytes Absolute Auto 2.1 X10*3/uL (1.2-4.9); Lymphocytes Percent Auto 14.6 % (20-40); Mean Corpuscular HGB Conc 31.3 g/dl (31.0-35.0); Mean Corpuscular Hemoglobin 27.5 pg (27.0-33.0); Mean Corpuscular Volume 87.9 fL (80.0-98.0); Mean Platelet Volume 12.3 fL (9.4-12.3); Monocytes Percent Auto 7.2 % (2-11); Neutrophils Percent Auto 76.9 % (45-73); Platelet Count 202 X10*3/uL (160-400); Red Blood Count 3.89 X10*6/uL (4.20-5.50); Red Cell Distribution Width 13.2 % (11.0-16.0); White Blood Count 14.3 X10*3/uL (4.8-10.8)
[2023-09-07 06:17] LABS: Alanine Aminotransferase 16 U/L (0-31); Albumin Level 3.2 g/dL (3.5-5.0); Alkaline Phosphatase 38 U/L (39-117); Anion Gap 15 (12-20); Aspartate Amino Transferase 17 U/L (5-31); Bilirubin Total 0.2 mg/dL (0.0-1.0); Blood Urea Nitrogen 45 mg/dL (9-16); Calcium 8.8 mg/dL (8.4-10.2); Carbon Dioxide 30 mmol/L (22-29); Chloride 101 mmol/L (96-108); Creatinine Clr Calc Pharmacy 37.3; Estimated Glomerular Filt Rate 35; Glucose Fasting 248 mg/dL (60-99); Potassium 4.5 mmol/L (3.3-5.1); Sodium 141 mmol/L (135-145); Total Protein 5.6 g/dL (6.5-8.0)
[2023-09-07] MEDS: Albuterol/Iprat 2.5/0.5MG 3 ML AMPUL.NEB INHALE ×3 (07:23→20:21)
[2023-09-07 07:26] LABS: Glucose, Whole Blood 214 mg/dL (60-115)
[2023-09-07] MEDS: 0.9 % Sodium Chloride Flush 3 ML SYRINGE IVFLUSH ×3 (07:48→19:57)
[2023-09-07] MEDS: Insulin Lispro 100 UNIT/ML 3 ML VIAL SUBCUT ×2 (08:38→12:09)
[2023-09-07] MEDS: Insulin Lispro 100 UNIT/ML 3 ML VIAL 7 UNIT SUBCUT ×3 (08:38→17:24)
[2023-09-07] MEDS: Insulin Glargine,Hum.rec.anlog 100 UNIT/ML 10 ML VIAL 10 UNIT SUBCUT ×2 (08:39→21:05)
[2023-09-07] MEDS: Enoxaparin Sodium 40 MG/0.4 ML SYRINGE SUBCUT (08:40)
[2023-09-07] MEDS: Pramipexole Di-HCL 0.25 MG TABLET 0.5 MG PO ×3 (08:41→19:57)
[2023-09-07] MEDS: Escitalopram Oxalate 5 MG TABLET PO (08:42)
[2023-09-07] MEDS: Gabapentin 300 MG CAPSULE PO (08:42)
[2023-09-07] MEDS: Atorvastatin Calcium 80 MG TABLET PO (08:42)
[2023-09-07] MEDS: Montelukast Sodium 10 MG TABLET PO (08:42)
[2023-09-07] MEDS: Cholecalciferol (Vitamin D3) 25 MCG TABLET PO (08:42)
[2023-09-07] MEDS: hydrOXYzine HCL 25 MG TABLET PO ×2 (08:42→19:54)
[2023-09-07] MEDS: Multivitamin TABLET 1 TAB PO (08:42)
[2023-09-07] MEDS: Aspirin 81 MG TAB.CHEW PO (08:42)
[2023-09-07] MEDS: rOPINIRole HCL 2 MG TABLET PO ×2 (08:42→19:57)
--- NOTE | 2023-09-07 09:13 | P.PNIM_ITS ---
Subjective Subjective Date of Service: 09/07/23 Physical Exam 2 Vital Signs: Vital Signs: Last Vital Signs Temp 98.0 F 09/07/23 07:10 Pulse 80 09/07/23 07:25 Resp 18 09/07/23 07:25 BP 146/67 H 09/07/23 07:10 Pulse Ox 97 09/07/23 07:10 O2 Del Method Nasal Cannula 09/07/23 07:10 O2 Flow Rate 2 09/07/23 07:10 BMI result Body Mass Index 45.9 Objective Data Active Medications Albuterol/Ipratropium (Albuterol/Iprat 2.5/0.5mg 3 Ml Ampul.Neb) 3 ml INHALE RQ4H WHILE AWAKE [facility] Last Admin: 09/07/23 07:23 Dose: 3 ml Documented By: EMMIE Aspirin (Aspirin 81 Mg Tab.Chew) 81 mg PO DAILY [facility] Last Admin: 09/07/23 08:42 Dose: 81 mg Documented By: LUTHER Atorvastatin Calcium (Atorvastatin Calcium 80 Mg Tablet) 80 mg PO DAILY [facility] Last Admin: 09/07/23 08:42 Dose: 80 mg Documented By: LUTHER Bupropion HCl (Bupropion Hcl Xl 150 Mg Tab.Er.24h) 150 mg PO DAILY@1999 [facility] Last Admin: 09/06/23 20:02 Dose: 150 mg Documented By: LEIGHTON Cyclobenzaprine HCl (Cyclobenzaprine Hcl 10 Mg Tablet) 10 mg PO TID PRN PRN Reason: muscle spasm Last Admin: 09/06/23 20:13 Dose: 10 mg Documented By: LEIGHTON Docusate Sodium (Docusate Sodium 100 Mg Capsule) 100 mg PO BID PRN PRN Reason: Constipation Last Admin: 09/06/23 20:13 Dose: 100 mg Documented By: LEIGHTON Enoxaparin Sodium (Enoxaparin Sodium 40 Mg/0.4 Ml Syringe) 40 mg SUBCUT Q24H [facility] Last Admin: 09/07/23 08:40 Dose: 40 mg Documented By: LUTHER Escitalopram Oxalate (Escitalopram Oxalate 5 Mg Tablet) 5 mg PO DAILY [facility] Last Admin: 09/07/23 08:42 Dose: 5 mg Documented By: LUTHER Gabapentin (Gabapentin 300 Mg Capsule) 900 mg PO BEDTIME [facility] Last Admin: 09/06/23 20:03 Dose: 900 mg Documented By: LEIGHTON Gabapentin (Gabapentin 300 Mg Capsule) 300 mg PO DAILY@0900 [facility] Last Admin: 09/07/23 08:42 Dose: 300 mg Documented By: LUTHER Hydroxyzine HCl (Hydroxyzine Hcl 25 Mg Tablet) 25 mg PO BID [facility] Last Admin: 09/07/23 08:42 Dose: 25 mg Documented By: LUTHER Meropenem 1 gm/ Sodium (Chloride) 100 mls @ 200 mls/hr IV Q12H [facility] Stop: 09/14/23 00:29 Last Infusion: 09/07/23 00:16 Dose: Infused Documented By: LEIGHTON Insulin Glargine (Insulin Glargine,Hum.Rec.Anlog 100 Unit/Ml 10 Ml Vial) 10 unit SUBCUT BID [facility] Last Admin: 09/07/23 08:39 Dose: 10 unit Documented By: LUTHER Insulin Human Lispro (Insulin Lispro 100 Unit/Ml 3 Ml Vial) 0 unit SUBCUT QIDACHS [facility]; Protocol Last Admin: 09/07/23 08:38 Dose: 6 unit Documented By: LUTHER Insulin Human Lispro (Insulin Lispro 100 Unit/Ml 3 Ml Vial) 7 unit SUBCUT QIDACHS [facility] Last Admin: 09/07/23 08:38 Dose: 7 unit Documented By: LUTHER Montelukast Sodium (Montelukast Sodium 10 Mg Tablet) 10 mg PO DAILY [facility] Last Admin: 09/07/23 08:42 Dose: 10 mg Documented By: LUTHER Multivitamins/Vitamin C (Multivitamin Tablet) 1 tab PO DAILY [facility] Last Admin: 09/07/23 08:42 Dose: 1 tab Documented By: LUTHER Omeprazole (Omeprazole 20 Mg Capsule.Dr) 20 mg PO BEDTIME [facility] Last Admin: 09/06/23 20:02 Dose: 20 mg Documented By: LEIGHTON Pramipexole Dihydrochloride (Pramipexole Di-Hcl 0.25 Mg Tablet) 0.5 mg PO TID [facility] Last Admin: 09/07/23 08:41 Dose: 0.5 mg Documented By: LUTHER Ropinirole HCl (Ropinirole Hcl 2 Mg Tablet) 2 mg PO BID [facility] Last Admin: 09/07/23 08:42 Dose: 2 mg Documented By: LUTHER Sodium Chloride (0.9 % Sodium Chloride Flush 3 Ml Syringe) 3 ml IVFLUSH QSHIFT [facility] Last Admin: 09/07/23 07:48 Dose: 3 ml Documented By: LUTHER Trazodone HCl (Trazodone Hcl 100 Mg Tablet) 200 mg PO BEDTIME [facility] Last Admin: 09/06/23 20:03 Dose: 200 mg Documented By: CASTILMichelle Vitamin D (Cholecalciferol (Vitamin D3) 25 Mcg Tablet) 25 mcg PO DAILY [facility] Last Admin: 09/07/23 08:42 Dose: 25 mcg Documented By: LUTHER Labs 09/07/23 05:15 09/07/23 05:15 Labs: Laboratory Results - last 24 hr 09/06/23 09/06/23 09/06/23 11:06 16:13 19:54 MCV MCH MCHC RDW Plt Count MPV Immature Gran % (Auto) Neut % (Auto) Lymph % (Auto) [place] % (Auto) Eos % (Auto) Baso % (Auto) Lymph # (Auto) [place] # (Auto) Eos # (Auto) Baso # (Auto) Abs Immat Gran (auto) Absolute Neuts (auto) Absolute Nucleated RBC Nucleated RBC % (auto) Anion Gap Estim Creat Clear Calc Estimated GFR POC Glucose 287 H 341 H 293 H Fasting Glucose Calcium Total Bilirubin AST ALT Alkaline Phosphatase Total Protein Albumin 09/07/23 09/07/23 05:15 07:23 MCV 87.9 MCH 27.5 MCHC 31.3 RDW 13.2 Plt Count 202 MPV 12.3 Immature Gran % (Auto) 1.2 H Neut % (Auto) 76.9 H Lymph % (Auto) 14.6 L [place] % (Auto) 7.2 Eos % (Auto) 0.0 Baso % (Auto) 0.1 Lymph # (Auto) 2.1 [place] # (Auto) 1.0 Eos # (Auto) 0.0 Baso # (Auto) 0.0 Abs Immat Gran (auto) 0.17 H Absolute Neuts (auto) 11.0 H Absolute Nucleated RBC 0.000 Nucleated RBC % (auto) 0.0 Anion Gap 15 Estim Creat Clear Calc 37.3 Estimated GFR 35 POC Glucose 214 H Fasting Glucose 248 H Calcium 8.8 Total Bilirubin 0.2 AST 17 ALT 16 Alkaline Phosphatase 38 L Total Protein 5.6 L Albumin 3.2 L Microbiology Microbiology Results: Microbiology 09/02/23 04:54 Blood Culture - Final Blood - Arterial Streptococcus viridans group [place] magna Assessment and Plan (1) Sepsis: Status: Acute (2) Recurrent UTI: Status: Acute Plan This is a 73 year old female with multiple UTIs in the past who now presents with the same. She meets SIRS criteria with tachycardia, tachypnea and leukocytosis. She will be admitted for further management. Sepsis due to UTI (preliminary Gram-negative rods) culture C.Freundii resistant CTX (will DC) meropenem ID Consult> 10 day total meropenem/ertapenem Non-obstructive 6mm nephrolithiasis urology consult pending continue meropenem DMII uncontrolled Lantus to 10 units b.i.d. lispro correctional scale HTN acceptable control adjust therapies as clinically indicated Full Code Attending Dr. Clyde Carty Requires ongoing hospitalization for IV antibiotics to treat likely UTI pending cultures. Also requires IV analgesia at this time Quality Stroke Does the patient have a stroke diagnosis?: No VTE Prior VTE?: No VTE Risk Level:: Medical - moderate - high VTE Device Contraindication: Treatment Not Indicated VTE Drug Contraindication: N/A - Med Ordered
[2023-09-07 11:12] LABS: Glucose, Whole Blood 160 mg/dL (60-115)
--- NOTE | 2023-09-07 12:33 | P.PNUR_ITS ---
Subjective Subjective Date of Service: 09/07/23 Interval history: Asked to review stone On imaging has small stone left side. No evidence of hydronephrosis. Creatinine is in her normal range Elevated white count Diabetes is poorly controlled This is a complicated UTI in setting of poorly controlled diabetes Streptococcus urosepsis - continue IV ertapenem and oral antibiotics per Infectious Disease recommendation Physical Exam 2 Vital Signs: Vital Signs: Last Vital Signs Temp 98.0 F 09/07/23 07:10 Pulse 80 09/07/23 07:25 Resp 18 09/07/23 07:25 BP 146/67 H 09/07/23 07:10 Pulse Ox 97 09/07/23 07:10 O2 Del Method Nasal Cannula 09/07/23 07:10 O2 Flow Rate 2 09/07/23 07:10 BMI result Body Mass Index 45.9 Const: General: cooperative, healthy appearing, comfortable and no acute distress Orientation/consciousness: patient oriented x3 HEENT: Face and sinus: Yes normal facial exam Mouth: moist mucous membranes Neck: Neck: Yes normal visual inspection, Yes full ROM and Yes trachea midline Chest: Chest palpation & inspection: normal inspection of the chest Resp: Effort & Inspection: normal respiratory effort, able to speak in complete sentences and no respiratory distress GI: Inspection: Yes normal to inspection Back/Spine/Pelvis: Cervical Spine: normal cervical lordosis Thoracic/Lumbar Spine: thoracic and lumbar spine normal to inspection Skin: General skin exam: no rashes or lesions noted Neuro: General: patient oriented x3, tone normal and moves all extremities Extrem: General: Yes normal to inspection and Yes capillary refill normal Urology Results Labs 09/07/23 05:15 09/07/23 05:15 Labs: Laboratory Results - last 24 hr 09/06/23 09/06/23 09/07/23 16:13 19:54 05:15 WBC 14.3 H RBC 3.89 L Hgb 10.7 L Hct 34.2 L MCV 87.9 MCH 27.5 MCHC 31.3 RDW 13.2 Plt Count 202 MPV 12.3 Immature Gran % (Auto) 1.2 H Neut % (Auto) 76.9 H Lymph % (Auto) 14.6 L [place] % (Auto) 7.2 Eos % (Auto) 0.0 Baso % (Auto) 0.1 Lymph # (Auto) 2.1 [place] # (Auto) 1.0 Eos # (Auto) 0.0 Baso # (Auto) 0.0 Abs Immat Gran (auto) 0.17 H Absolute Neuts (auto) 11.0 H Absolute Nucleated RBC 0.000 Nucleated RBC % (auto) 0.0 Sodium 141 Potassium 4.5 Chloride 101 Carbon Dioxide 30 H Anion Gap 15 BUN 45 H Creatinine 1.48 H Estim Creat Clear Calc 37.3 Estimated GFR 35 POC Glucose 341 H 293 H Fasting Glucose 248 H Calcium 8.8 Total Bilirubin 0.2 AST 17 ALT 16 Alkaline Phosphatase 38 L Total Protein 5.6 L Albumin 3.2 L 09/07/23 09/07/23 07:23 11:08 WBC RBC Hgb Hct MCV MCH MCHC RDW Plt Count MPV Immature Gran % (Auto) Neut % (Auto) Lymph % (Auto) [place] % (Auto) Eos % (Auto) Baso % (Auto) Lymph # (Auto) [place] # (Auto) Eos # (Auto) Baso # (Auto) Abs Immat Gran (auto) Absolute Neuts (auto) Absolute Nucleated RBC Nucleated RBC % (auto) Sodium Potassium Chloride Carbon Dioxide Anion Gap BUN Creatinine Estim Creat Clear Calc Estimated GFR POC Glucose 214 H 160 H Fasting Glucose Calcium Total Bilirubin AST ALT Alkaline Phosphatase Total Protein Albumin Progress Note: A&P Assessment and plan (1) Recurrent UTI: Status: Acute (2) Acute pyelonephritis: Status: Acute (3) Sepsis: Status: Acute Plan Follow ID recommendations for complicated UTI Controlled diabetes Can review with Urology as outpatient Time Spent With Patient Time: Total time managing care of this patient today ____ minutes. Progress Note: Quality Stroke Does the patient have a stroke diagnosis?: No
[2023-09-07] MEDS: Morphine Sulfate 2 MG/ML CARTRIDGE 1 MG IVPUSH ×2 (14:01→22:14)
--- NOTE | 2023-09-07 14:13 | MHC.CM.PN ---
[er rounds pt not medically ready for dc pt to be seen by urololgy
--- NOTE | 2023-09-07 14:14 | MHC.CM.PN ---
per rounds pt not ready for dc needs a urology consult
[2023-09-07 16:10] LABS: Glucose, Whole Blood 113 mg/dL (60-115)
[2023-09-07] MEDS: Gabapentin 300 MG CAPSULE 900 MG PO (19:54)
[2023-09-07] MEDS: Cyclobenzaprine HCl 10 MG TABLET PO (19:54)
[2023-09-07] MEDS: Omeprazole 20 MG CAPSULE.DR PO (19:54)
[2023-09-07] MEDS: traZODone HCL 100 MG TABLET 200 MG PO (19:54)
[2023-09-07] MEDS: buPROPion HCl XL 150 MG TAB.ER.24H PO (19:55)
[2023-09-07 20:40] LABS: Glucose, Whole Blood 142 mg/dL (60-115)
--- NOTE | 2023-09-07 21:42 | PC.NURSE ---
Pt's blood sugar was 142. She has a standing order for 7 units of lispo and a sliding scale. Her blood sugar has been higher the last couple days because she's been on IV solumedrol. Bryant text to Dr. Jim, he said to hold the 7 units. She did get 10 units of lantus and had a snack.
[2023-09-08] VITALS (9 sets, daily range): BP systolic 129–155; BP diastolic 59–67; PULSE 76–92; RESP 16–22; TEMP 36.1–36.6; O2SAT 95–98
[2023-09-08] MEDS: Morphine Sulfate 2 MG/ML CARTRIDGE 1 MG IVPUSH ×2 (06:17→14:17)
[2023-09-08] MEDS: Albuterol/Iprat 2.5/0.5MG 3 ML AMPUL.NEB INHALE ×4 (07:30→20:07)
[2023-09-08 07:33] LABS: Glucose, Whole Blood 185 mg/dL (60-115)
[2023-09-08] MEDS: Multivitamin TABLET 1 TAB PO (08:27)
[2023-09-08] MEDS: Atorvastatin Calcium 80 MG TABLET PO (08:27)
[2023-09-08] MEDS: Montelukast Sodium 10 MG TABLET PO (08:27)
[2023-09-08] MEDS: Cholecalciferol (Vitamin D3) 25 MCG TABLET PO (08:27)
[2023-09-08] MEDS: Gabapentin 300 MG CAPSULE PO (08:27)
[2023-09-08] MEDS: Escitalopram Oxalate 5 MG TABLET PO (08:28)
[2023-09-08] MEDS: rOPINIRole HCL 2 MG TABLET PO ×2 (08:28→20:49)
[2023-09-08] MEDS: Pramipexole Di-HCL 0.25 MG TABLET 0.5 MG PO ×3 (08:28→20:49)
[2023-09-08] MEDS: hydrOXYzine HCL 25 MG TABLET PO ×2 (08:28→20:49)
[2023-09-08] MEDS: Aspirin 81 MG TAB.CHEW PO (08:28)
[2023-09-08] MEDS: Enoxaparin Sodium 40 MG/0.4 ML SYRINGE SUBCUT (08:30)
[2023-09-08] MEDS: Insulin Glargine,Hum.rec.anlog 100 UNIT/ML 10 ML VIAL 10 UNIT SUBCUT ×2 (08:33→20:57)
[2023-09-08] MEDS: Insulin Lispro 100 UNIT/ML 3 ML VIAL SUBCUT ×4 (08:33→20:50)
[2023-09-08] MEDS: 0.9 % Sodium Chloride Flush 3 ML SYRINGE IVFLUSH ×3 (08:34→20:50)
[2023-09-08] MEDS: Insulin Lispro 100 UNIT/ML 3 ML VIAL 7 UNIT SUBCUT ×4 (08:34→20:50)
[2023-09-08 11:07] LABS: Glucose, Whole Blood 255 mg/dL (60-115)
--- NOTE | 2023-09-08 14:03 | HO.PM.IMPN ---
Subjective Subjective Date of Service: 09/08/23 Review of Systems Follow up sepsis, UTI feeling better, oob to chair Physical Exam Vital Signs: Vital Signs: Last Vital Signs Temp 97.8 F 09/08/23 07:04 Pulse 92 09/08/23 12:32 Resp 20 09/08/23 12:32 BP 155/67 H 09/08/23 12:32 Pulse Ox 97 09/08/23 12:32 O2 Del Method Nasal Cannula 09/08/23 12:32 O2 Flow Rate 2 09/08/23 12:32 BMI result Body Mass Index 45.9 Appearing in no acute distress lung sounds are clear to auscultation heart regular rate rhythm, clear S1, S2 positive bowel sounds, abdomen is soft, nontender neuro patient is alert x3, no focal deficits Objective Data Active Medications Albuterol/Ipratropium (Albuterol/Iprat 2.5/0.5mg 3 Ml Ampul.Neb) 3 ml INHALE RQ4H WHILE AWAKE [facility] Last Admin: 09/08/23 11:18 Dose: 3 ml Documented By: ORESTES Aspirin (Aspirin 81 Mg Tab.Chew) 81 mg PO DAILY [facility] Last Admin: 09/08/23 08:28 Dose: 81 mg Documented By: LUTHER Atorvastatin Calcium (Atorvastatin Calcium 80 Mg Tablet) 80 mg PO DAILY [facility] Last Admin: 09/08/23 08:27 Dose: 80 mg Documented By: LUTHER Bupropion HCl (Bupropion Hcl Xl 150 Mg Tab.Er.24h) 150 mg PO DAILY@1999 [facility] Last Admin: 09/07/23 19:55 Dose: 150 mg Documented By: ROSAURA Cyclobenzaprine HCl (Cyclobenzaprine Hcl 10 Mg Tablet) 10 mg PO TID PRN PRN Reason: muscle spasm Last Admin: 09/07/23 19:54 Dose: 10 mg Documented By: ROSAURA Docusate Sodium (Docusate Sodium 100 Mg Capsule) 100 mg PO BID PRN PRN Reason: Constipation Last Admin: 09/06/23 20:13 Dose: 100 mg Documented By: LEIGHTON Enoxaparin Sodium (Enoxaparin Sodium 40 Mg/0.4 Ml Syringe) 40 mg SUBCUT Q24H [facility] Last Admin: 09/08/23 08:30 Dose: 40 mg Documented By: LUTHER Escitalopram Oxalate (Escitalopram Oxalate 5 Mg Tablet) 5 mg PO DAILY [facility] Last Admin: 09/08/23 08:28 Dose: 5 mg Documented By: LUTHER Gabapentin (Gabapentin 300 Mg Capsule) 900 mg PO BEDTIME [facility] Last Admin: 09/07/23 19:54 Dose: 900 mg Documented By: ROSAURA Gabapentin (Gabapentin 300 Mg Capsule) 300 mg PO DAILY@0900 [facility] Last Admin: 09/08/23 08:27 Dose: 300 mg Documented By: LUTHER Hydroxyzine HCl (Hydroxyzine Hcl 25 Mg Tablet) 25 mg PO BID [facility] Last Admin: 09/08/23 08:28 Dose: 25 mg Documented By: LUTHER Meropenem 1 gm/ Sodium (Chloride) 100 mls @ 200 mls/hr IV Q12H [facility] Stop: 09/14/23 00:29 Last Infusion: 09/08/23 12:23 Dose: Infused Documented By: LUTHER Insulin Glargine (Insulin Glargine,Hum.Rec.Anlog 100 Unit/Ml 10 Ml Vial) 10 unit SUBCUT BID [facility] Last Admin: 09/08/23 08:33 Dose: 10 unit Documented By: LUTHER Insulin Human Lispro (Insulin Lispro 100 Unit/Ml 3 Ml Vial) 0 unit SUBCUT QIDAS [facility]; Protocol Last Admin: 09/08/23 11:55 Dose: 8 unit Documented By: LUTHER Insulin Human Lispro (Insulin Lispro 100 Unit/Ml 3 Ml Vial) 7 unit SUBCUT QIDACHS [facility] Last Admin: 09/08/23 11:55 Dose: 7 unit Documented By: LUTHER Montelukast Sodium (Montelukast Sodium 10 Mg Tablet) 10 mg PO DAILY [facility] Last Admin: 09/08/23 08:27 Dose: 10 mg Documented By: LUTHER Morphine Sulfate (Morphine Sulfate 2 Mg/Ml Cartridge) 1 mg IVPUSH Q8H PRN; Protocol PRN Reason: Pain, Moderate(Pain Scale 4-6) Last Admin: 09/08/23 06:17 Dose: 1 mg Documented By: ROSAURA Multivitamins/Vitamin C (Multivitamin Tablet) 1 tab PO DAILY [facility] Last Admin: 09/08/23 08:27 Dose: 1 tab Documented By: LUTHER Omeprazole (Omeprazole 20 Mg Capsule.) 20 mg PO BEDTIME [facility] Last Admin: 09/07/23 19:54 Dose: 20 mg Documented By: ROSAURA Pramipexole Dihydrochloride (Pramipexole Di-Hcl 0.25 Mg Tablet) 0.5 mg PO TID [facility] Last Admin: 09/08/23 14:02 Dose: 0.5 mg Documented By: LUTHER Ropinirole HCl (Ropinirole Hcl 2 Mg Tablet) 2 mg PO BID [facility] Last Admin: 09/08/23 08:28 Dose: 2 mg Documented By: LUTHER Sodium Chloride (0.9 % Sodium Chloride Flush 3 Ml Syringe) 3 ml IVFLUSH QSHIFT [facility] Last Admin: 09/08/23 08:34 Dose: 3 ml Documented By: LUTHER Trazodone HCl (Trazodone Hcl 100 Mg Tablet) 200 mg PO BEDTIME [facility] Last Admin: 09/07/23 19:54 Dose: 200 mg Documented By: ROSAURA Vitamin D (Cholecalciferol (Vitamin D3) 25 Mcg Tablet) 25 mcg PO DAILY [facility] Last Admin: 09/08/23 08:27 Dose: 25 mcg Documented By: LUTHER Labs 09/07/23 05:15 09/07/23 05:15 Labs: Laboratory Results - last 24 hr 09/07/23 09/07/23 09/08/23 16:02 20:30 07:06 POC Glucose 113 142 H 185 H 09/08/23 11:01 POC Glucose 255 H Microbiology Microbiology Results: Microbiology 09/03/23 05:22 Blood Culture - Final Blood - Venous No growth after 5 days. 09/03/23 05:22 Blood Culture - Final Blood - Venous No growth after 5 days. 09/02/23 04:54 Blood Culture - Final Blood - Arterial No growth after 5 days. Assessment and Plan (1) Sepsis: Status: Acute (2) Recurrent UTI: Status: Acute Plan This is a 73 year old female with multiple UTIs in the past who now presents with the same. She meets SIRS criteria with tachycardia, tachypnea and leukocytosis. She will be admitted for further management. Sepsis due to C.Freundii, strep viridans resistant CTX meropenem started 09/05/23 to 09/14/23 ID Consult> 10 day total meropenem/ertapenem will need midline and VNA referral Non-obstructive 6mm nephrolithiasis urology consult> no need for evacuation at this time continue meropenem DMII uncontrolled Lantus to 10 units b.i.d. lispro correctional scale HTN acceptable control adjust therapies as clinically indicated Full Code Attending Dr. Clyde Carty Requires ongoing hospitalization for IV antibiotics to treat likely UTI pending cultures. Also requires IV analgesia at this time Quality Stroke Does the patient have a stroke diagnosis?: No VTE Prior VTE?: No VTE Risk Level:: Medical - moderate - high VTE Device Contraindication: Treatment Not Indicated VTE Drug Contraindication: N/A - Med Ordered
[2023-09-08 16:24] LABS: Glucose, Whole Blood 140 mg/dL (60-115)
[2023-09-08 20:25] LABS: Glucose, Whole Blood 232 mg/dL (60-115)
[2023-09-08] MEDS: traZODone HCL 100 MG TABLET 200 MG PO (20:48)
[2023-09-08] MEDS: buPROPion HCl XL 150 MG TAB.ER.24H PO (20:49)
[2023-09-08] MEDS: Cyclobenzaprine HCl 10 MG TABLET PO (20:49)
[2023-09-08] MEDS: Omeprazole 20 MG CAPSULE.DR PO (20:49)
[2023-09-08] MEDS: Gabapentin 300 MG CAPSULE 900 MG PO (20:49)
[2023-09-09] MEDS: Morphine Sulfate 2 MG/ML CARTRIDGE 1 MG IVPUSH (00:42)
[2023-09-09 03:07] VITALS: BP 143/65; PULSE 99; RESP 19; TEMP 36.1; O2SAT 93
[2023-09-09] MEDS: Cyclobenzaprine HCl 10 MG TABLET PO ×2 (05:47→16:59)
[2023-09-09 07:13] LABS: Glucose, Whole Blood 259 mg/dL (60-115)
[2023-09-09 07:20] VITALS: BP 124/59; PULSE 80; RESP 18; TEMP 36.2; O2SAT 96
[2023-09-09] MEDS: Albuterol/Iprat 2.5/0.5MG 3 ML AMPUL.NEB INHALE ×2 (07:42→15:40)
[2023-09-09 07:43] VITALS: PULSE 90; RESP 18; O2SAT 92
[2023-09-09] MEDS: Insulin Lispro 100 UNIT/ML 3 ML VIAL SUBCUT ×2 (07:52→12:11)
[2023-09-09] MEDS: 0.9 % Sodium Chloride Flush 3 ML SYRINGE IVFLUSH ×2 (07:52→16:55)
[2023-09-09] MEDS: hydrOXYzine HCL 25 MG TABLET PO (07:54)
[2023-09-09] MEDS: Enoxaparin Sodium 40 MG/0.4 ML SYRINGE SUBCUT (07:54)
[2023-09-09] MEDS: Insulin Lispro 100 UNIT/ML 3 ML VIAL 7 UNIT SUBCUT ×2 (07:54→12:11)
[2023-09-09] MEDS: Montelukast Sodium 10 MG TABLET PO (07:55)
[2023-09-09] MEDS: Atorvastatin Calcium 80 MG TABLET PO (07:55)
[2023-09-09] MEDS: rOPINIRole HCL 2 MG TABLET PO (07:55)
[2023-09-09] MEDS: Multivitamin TABLET 1 TAB PO (07:55)
[2023-09-09] MEDS: Cholecalciferol (Vitamin D3) 25 MCG TABLET PO (07:55)
[2023-09-09] MEDS: Pramipexole Di-HCL 0.25 MG TABLET 0.5 MG PO ×2 (07:55→14:49)
[2023-09-09] MEDS: Escitalopram Oxalate 5 MG TABLET PO (07:55)
[2023-09-09] MEDS: Gabapentin 300 MG CAPSULE PO (07:55)
[2023-09-09] MEDS: Aspirin 81 MG TAB.CHEW PO (07:55)
[2023-09-09] MEDS: Insulin Glargine,Hum.rec.anlog 100 UNIT/ML 10 ML VIAL 10 UNIT SUBCUT (07:59)
[2023-09-09] MEDS: oxyCODONE HCl Immed Release 5 MG TABLET PO (10:21)
[2023-09-09] MEDS: Lidocaine 4 % Patch ADH..PATCH 1 PATCH TRANSDERMA (10:21)
--- NOTE | 2023-09-09 11:53 | PM.EVENT ---
Event Note Date of Service: 09/09/23 Event Note: Procedure Note: Right IJ Horton Indication: IV antibiotics, CKD Right IJ 18 cm single lumen Horton placed. Tip dwight cavoatrial junction. Ok for use Roderick SHAFFER Interventional Radiology. Time Spent With Patient Time: Total time managing care of this patient today ____ minutes.
[2023-09-09 12:07] LABS: Glucose, Whole Blood 238 mg/dL (60-115)
--- NOTE | 2023-09-09 13:01 | MHC.CM.PN ---
pt home with [facility] and [facility] will be transported by family
--- NOTE | 2023-09-09 14:05 | PM.DS ---
DS: Providers Provider Date of Service: 09/09/23 Date of admission: 09/02/23 08:38 Primary care physician: Shelbi Perez MD Consults: 09/02/23 08:48 Consult to Urology Routine Consulting Provider: Sanchez Tobar Reason for consultation: 6mm stone, lower pole L kidney 09/04/23 12:33 Consult to Infectious Diseases Routine Consulting Provider: ERNST DAN Reason for consultation: Resistant UTI Has provider been notified: No DS: Diagnosis Discharge Diagnosis (1) Sepsis: Status: Acute (2) Recurrent UTI: Status: Acute DS: Summary Hospital Course Hospital Course: History and physical as per admitting provider. The patient is a 73 year old female with prior UTI and a PMH of DM, COPD/Chronic hypoxic resp failure on 2L, HTN, HLD, CKD3, RLS, Mood disorder and others who presents to [facility] for the second time in less than 24 hours with complaints of bilateral flank pain for 2-3 days duration. She endorses associated chills without fevers. She reports urinary urgency and frequency. She reports nausea without vomiting and a decreased overall oral intake. She reports similar symptoms as her prior UTI, however back pain is new. She denies any CP/SOB/Headache/abd. pain. a She inially presented on 09/01/22 AM but left prior to being seen. Her work up in the ED shows an elevated WBC count, normal lactate, SCr at baseline, UA positive for UTI. CT showing a 6mm non-obstructing stone in the lower pole of L kidney, no hydro. She has been given analgesics, IVF and IV antibiotics. She will now be admitted for further care. 73-year-old woman treated for Sepsis due to C.Freundii, strep viridans resistant and nonobstructive nephrolithiasis. She was treated with IV meropenem, and will continue ertapenem until 09/14/2023 as per [facility]. She had Horton catheter placed on 09/09/2023. Seen evaluated by Urology who stated no need for evacuation of renal calculi at this time as there is no obstruction. Patient had some back pain relieved by oxycodone and lidocaine patch. She has a scheduled appointment with Dr. Angulo in October. She will be followed by the visiting nurse home. Plan is to discharge today. Diabetes mellitus type 2. Continue home insulin Hypertension. Continue lisinopril, amlodipine Mental health. Continue home medications Time Attestation Discharge coordination time: Greater than 30 minutes Quality: Safe Use of Opioids Does Pt have an Active Cancer Diagnosis on the Problem List?: No Quality: Stroke Does the patient have a stroke diagnosis?: No Physical Exam Vital Signs: Vital Signs: Last Vital Signs Temp 97.2 F 09/09/23 07:20 Pulse 90 09/09/23 07:43 Resp 18 09/09/23 07:43 BP 124/59 L 09/09/23 07:20 Pulse Ox 96 09/09/23 07:20 O2 Del Method Nasal Cannula 09/09/23 07:20 O2 Flow Rate 2 09/09/23 07:20 BMI result Body Mass Index 45.9 Appearing in no acute distress head is normocephalic atraumatic eyes pupils are PERRLA sclera is anicteric mouth throat mucous membranes are intact and moist neck is supple no lymphadenopathy, no JVD noted lung sounds are clear to auscultation heart regular rate rhythm, clear S1, S2 positive bowel sounds, abdomen is soft, nontender neuro patient is alert x3, no focal deficits DS: Data Data Completed and Pending Completed studies during hospitalization [Text1]: Procedures Replacement of Left Knee Joint with Synthetic Substitute, Uncemented, Open Approach (05/28/20) Labs on day of discharge: Laboratory Results - last 24 hr 09/08/23 09/08/23 09/09/23 16:20 20:17 07:04 POC Glucose 140 H 232 H 259 H 09/09/23 12:02 POC Glucose 238 H Discharge Plan Discharge Anticipated Discharge Date/Time: 09/09/23 11:57 Patient Disposition: Home, Self-Care Discharge Diagnosis: Recurrent urinary tract infection Sepsis due to C.Freundii, strep viridans resistant UTI Nonobstructive nephrolithiasis Referrals: [facility] [Other] - 1 Week [facility] [Other] - 1 Week Shelbi Perez MD [Primary Care Provider] - 1 Week Discharge Medications: New ertapenem 1 gram recon soln 1 g IV DAILY Qty: 5 0RF Continued (DME) lancets 28 gauge misc See Rx Instructions topical TID Qty: 100 3RF Rx Instructions: once a day (DME) FreeStyle Lite Strips Strip See Rx Instructions .Route Rx Instructions: Use to check blood sugar twice daily and when having symptoms of hypo/hyperglycemia (DME) diaper,brief,adult,disposable Misc See Rx Instructions .Route Qty: 64 5RF Rx Instructions: Use for stress incontinence (DME) lancets [OneTouch Delica Lancets] 30 gauge misc See Rx Instructions .Route Qty: 100 2RF Rx Instructions: Use to check blood sugar twice daily and when having symptoms of hypo/hyperglycemia (DME) blood-glucose meter [Sweetspot IntelligenceTouch Ultra2 Meter] Misc See Rx Instructions .Route Qty: 1 0RF Rx Instructions: Use to check blood sugar twice daily and when having symptoms of hypo/hyperglycemia (DME) pen needle, diabetic [BD Ultra-Fine Mini Pen Needle] 31 gauge x 3/16 needle See Rx Instructions .Route Qty: 100 2RF Rx Instructions: Use to administer insulin twice daily (DME) OneTouch Ultra Test Strip See Rx Instructions .Route Qty: 100 2RF Rx Instructions: Use to check blood sugar twice daily and when having symptoms of hypo/hyperglycemia (DME) walker Misc See Rx Instructions .Route Qty: 1 0RF Rx Instructions: Wheeled walker with seat and brakes (DME) Shower Chair Misc See Rx Instructions .Route Qty: 1 0RF Rx Instructions: Shower chair with back and arm rests amlodipine [Norvasc] 5 mg tablet 5 mg PO DAILY 30 Days Qty: 90 0RF atorvastatin 80 mg tablet 80 mg PO DAILY 90 Days Qty: 90 0RF insulin aspart U-100 [Novolog FlexPen U-100 Insulin] 100 unit/mL (3 mL) insulin pen See Protocol subcut TID Qty: 30 0RF Protocol: Insulin Correction Scale Less than or equal to 110 ---- Give (units): 0 111 to 150 Give (units): 0 151 to 200 Give (units): 2 201 to 250 Give (units): 4 251 to 300 Give (units): 6 301 to 350 Give (units): 8 Greater than 350 Give (units): 10 Call MD if Blood Glucose > : 350 Rx Instructions: Up to 10 units before each meal according to sliding scale montelukast 10 mg tablet 10 mg PO DAILY Qty: 90 1RF lisinopril 5 mg tablet 5 mg PO DAILY Qty: 90 0RF albuterol sulfate 2.5 mg /3 mL (0.083 %) solution for nebulization 2.5 mg inhalation Q4-6H PRN (Reason: shortness of breath or wheezing) Qty: 75 0RF (DME) diaper,brief,adult,disposable Misc See Rx Instructions .Route Qty: 200 5RF Rx Instructions: Size medium pull up briefs (DME) AeroEclipse II Nebulizer Misc See Rx Instructions .ROUTE .MEDSUPPLY Qty: 1 0RF Rx Instructions: As directed hydroxyzine pamoate 25 mg capsule 25 mg PO BID trazodone 100 mg tablet 200 mg PO BEDTIME aspirin 81 mg Tablet,Chewable 81 mg PO DAILY cholecalciferol (vitamin D3) 25 mcg (1,000 unit) Capsule 25 mcg PO DAILY multivitamin Tablet 1 tab PO DAILY citalopram 10 mg tablet 10 mg PO DAILY gabapentin 300 mg capsule 300 mg PO QAM albuterol sulfate [ProAir HFA] 90 mcg/actuation HFA aerosol inhaler 2 puff inhalation Q4H PRN (Reason: shortness of breath or wheezing) gabapentin 300 mg Capsule 900 mg PO BEDTIME Levemir FlexPen 100 unit/mL (3 mL) insulin pen 20 unit subcut BEDTIME pantoprazole 20 mg tablet,delayed release (DR/EC) 20 mg PO BEDTIME pramipexole 0.5 mg tablet 0.5 mg PO TID ropinirole 2 mg tablet 2 mg PO BID cyclobenzaprine 10 mg tablet 10 mg PO TID PRN (Reason: muscle spasm) 7 Days Qty: 20 0RF (DME) pen needle, diabetic 31 gauge x 3/16 needle See Rx Instructions subcut TID Qty: 1200 1RF Rx Instructions: 4x a day bupropion HCl 150 mg tablet extended release 24 hr 150 mg PO QPM (DME) oxygen-air delivery systems Device See Rx Instructions .ROUTE .MEDSUPPLY Qty: 1 Rx Instructions: As directed Discharge Orders: Discharge Order (Routine); Ordered 09/09/23 Ordered By: Rebecca Calloway Diet: Advance to usual diet Activity on Discharge: As tolerated Stand Alone Forms: Patient Portal Discharge page Care Plan Goals: Horton catheter placed 09/09/2023 Health Concerns: Sepsis due to C.Freundii, strep viridans resistant UTI Nonobstructive nephrolithiasis Plan of Treatment: Follow-up with primary care provider as needed Continue ertapenem 1 g daily, stop date 09/13/22 Assessment: See discharge summary
[2023-09-09 15:41] VITALS: PULSE 88; RESP 18; O2SAT 92
[2023-09-09 15:44] VITALS: BP 119/51; PULSE 74; RESP 22; TEMP 36.6; O2SAT 99
[2023-09-09 16:08] LABS: Glucose, Whole Blood 100 mg/dL (60-115)
--- NOTE | 2023-09-09 16:27 | P.CDIM_ITS ---
PROVIDER RESPONSE TEXT: To clarify, the appropriate diagnosis supported by the clinical indicators: Obesity Due to excess calories QUERY TEXT: PHYSICIAN'S DOCUMENTATION REQUEST Date of Query: 09/09/2023 09:47 AM EST Patient Name: Mine Peacock Admit Date: 09/02/2023 Dear Rebecca Calloway, A review of the medical record indicates additional documentation may be needed. Please review below and update the documentation accordingly. Clinical Indicators: Height: ( ) 5' Weight: ( ) 106.594 kg BMI: ( ) 45.9 Other Clinical Notes Supporting Significance of the BMI: Per Nutritional Risk Assessment 09/09/23: on therapeutic diet If possible, please provide an associated diagnosis related to the abnormal BMI, such as: Overweight Obesity Due to excess calories Obesity Drug induced Obesity Due to other cause Specify the other cause Severe or Morbid Obesity With alveolar hypoventilation Severe or Morbid Obesity Without alveolar hypoventilation BMI is not significant Other (explain) Clinically unable to determine (explain) Thank you, Leslee Belcher RN Use of terms such as suspected, likely, concern for, or probable (associated with a specific diagnosi s that is being evaluated, monitored, or treated as if it exists) are acceptable and can be coded in the inpatient se tting, when documented at the time of discharge. Please use your independent medical judgment in providing your response. THIS QUERY IS PART OF THE PERMANENT MEDICAL RECORD
[2023-09-09] MEDS: Ertapenem Sodium 1 GM in 0.9 % Sodium Chloride 50 ML IV (16:53)
== END 2023-09-09 19:00 | disposition home or self-care (01) | DRG 872 ==
LOC: HO.ED 09-02 07:05 → HO.EDOVER 09-02 08:54 → HO.S3 09-02 13:28
PROVIDERS: Hospitalist; Physician Assistant Surgical; Admitting Provider Family Medicine; Emergency Provider Emergency Medicine; PCP Internal Medicine; Visit Provider Nurse Practitioner Acute Care
DX: A41.9 Sepsis, unspecified organism (principal); N10 Acute pyelonephritis; J96.11 Chronic respiratory failure with hypoxia; Z16.39 Resistance to other specified antimicrobial drug; Z68.42 Body mass index [BMI] 45.0-49.9, adult; N20.0 Calculus of kidney; E11.65 Type 2 diabetes mellitus with hyperglycemia; E78.5 Hyperlipidemia, unspecified; E66.09 Other obesity due to excess calories; N18.30 Chronic kidney disease, stage 3 unspecified; B95.4 Other streptococcus as the cause of diseases classified elsewhere; E11.22 Type 2 diabetes mellitus with diabetic chronic kidney disease; J44.9 Chronic obstructive pulmonary disease, unspecified; G25.81 Restless legs syndrome; I12.9 Hypertensive chronic kidney disease with stage 1 through stage 4 chronic kidney disease, or unspecified chronic kidney disease; Z99.81 Dependence on supplemental oxygen; Z87.440 Personal history of urinary (tract) infections; Z79.82 Long term (current) use of aspirin; Z79.4 Long term (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 insulin; Z79.899 Other long term (current) drug therapy
CPT/HCPCS: 36415; 36558; 80048; 80053; 81001; 82565; 82947; 83605; 85025; 87040; 87076; 87086; 87088; 87185; 87186; 87205; 94640; 97116; 97162; 97530; 99285; C1751; C1769; J0696; J1335; J1650; J2185; J2270; J2930

== ENCOUNTER 2023-09-02 08:38 | Outpatient (BNV) | payer OTHER, SELFPAY | END 2023-09-09 10:30 | PROVIDERS: Admitting Provider Family Medicine; Emergency Provider Emergency Medicine; PCP Internal Medicine; Visit Provider Physician Assistant Surgical | DX: N18.9 Chronic kidney disease, unspecified (principal) | CPT/HCPCS: 36558; 76937; 77001 ==

== ENCOUNTER → 2023-09-02 08:38 | Outpatient (BNV) | payer OTHER, SELFPAY | PROVIDERS: Admitting Provider Family Medicine; Emergency Provider Emergency Medicine; PCP Internal Medicine; Visit Provider Internal Medicine | DX: N39.0 Urinary tract infection, site not specified (principal); N20.0 Calculus of kidney; A41.9 Sepsis, unspecified organism | CPT/HCPCS: 99222 ==

== ENCOUNTER → 2023-09-02 08:38 | Outpatient (BNV) | payer OTHER, SELFPAY | PROVIDERS: Admitting Provider Family Medicine; Emergency Provider Emergency Medicine; PCP Internal Medicine; Visit Provider Urology | DX: N39.0 Urinary tract infection, site not specified (principal); N10 Acute pyelonephritis; A41.9 Sepsis, unspecified organism | CPT/HCPCS: 99222; 99232 ==

== ENCOUNTER → 2023-09-02 08:38 | Outpatient (BNV) | payer MEDICARE, SELFPAY | PROVIDERS: Admitting Provider Family Medicine; Emergency Provider Emergency Medicine; PCP Internal Medicine; Visit Provider Family Medicine | DX: A41.9 Sepsis, unspecified organism (principal); N39.0 Urinary tract infection, site not specified | CPT/HCPCS: 99223; 99232; 99233; 99238; 99499 ==

== ENCOUNTER 2023-09-14 12:59 | Outpatient (AMB) | payer OTHER, SELFPAY ==
[2023-09-14 13:13] VITALS: PULSE 89; TEMP 36.9; O2SAT 95
--- NOTE | 2023-09-14 13:13 | A.OFFVIS_ITS ---
Intake Vital Signs 09/14/23 13:13 Pulse 89 Pulse Source Pulse Oximeter Temp 98.5 F Temp Source Oral Pulse Oximetry (%) 95 Intake Visit Reasons: reff option/end of abx 3/4 ertapenem Allergies adhesive tape [ADHESIVE TAPE] Allergy (Intermediate, Verified 09/14/23 13:13) RASH trimethobenzamide [From TIGAN] Allergy (Mild, Verified 09/14/23 13:13) NAUSEA environmental Allergy (Intermediate, Uncoded 09/01/23 12:41) Nasal congestion HPI reff option/end of abx 3/4 ertapenem HPI Details She feels well. She has no complaints. She has no dysuria. [facility] Medical History Kidney stone on left side Diabetes 1.5, managed as type 1 Recurrent UTI COPD (chronic obstructive pulmonary disease) Respiratory failure with hypoxia Urinary tract infection Hypoxemia Morbid obesity CKD (chronic kidney disease) Anemia COPD exacerbation Allergic rhinitis ALDO (obstructive sleep apnea) Obesity (BMI 30-39.9) Constipation due to opioid therapy Osteoarthritis of left knee Hx SBO Hyperlipidemia CPAP (continuous positive airway pressure) dependence History of adrenal adenoma Osteochondroma of left femur Arthritis Diabetes Elevated cholesterol History of restless legs syndrome History of diverticulitis GERD (gastroesophageal reflux disease) Surgical History H/O excision of mass History of oophorectomy History of cholecystectomy History of appendectomy History of arthroscopy of left knee History of partial colectomy Hx of cataract extraction H/O exploratory laparotomy H/O colonoscopy History of surgery History of hysterectomy Family History Father HTN (hypertension) Diabetes mellitus Mother HTN (hypertension) Liver cancer Social History 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: Spouse 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 Other:: EX Housing: Apartment Are you a primary skin care therapist to a significant other at home: No Do you presently have visiting nurse or other home services: Yes (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.) Unable to assess alcohol history related to: Unknown Alcohol intake: never Comment: PT SLEEPING Patient Tobacco Use Status: Never used Tobacco e-Cigarette/Vaping Use: Never Used Second Hand Smoke Exposure: No Advance Directives Date on File: 07/08/21 service: No Current occupational status: retired Cognitive needs: No Hearing needs: No Vision needs: No Female Reproductive History Menstrual Age of Menarche: 13 Review of Systems Const All systems reviewed & are unremarkable except as noted in HPI and below Physical Exam Vital Signs: Last Vital Signs Temp 98.5 F 09/14/23 13:13 Pulse 89 09/14/23 13:13 Pulse Ox 95 09/14/23 13:13 Const General: cooperative Orientation/consciousness: patient oriented x3 HEENT Head: Yes normal to inspection Mouth: Normal oral and palatal mucosa present Eyes General: appearance normal, both eyes and all related structures Pupils: Equal, round and reactive pupils present Resp Effort & Inspection: normal respiratory effort Cardio Rate: regular rate Rhythm: regular rhythm GI Palpation (GI): Soft to palpation and nontender General: Yes no CVA tenderness Back/Spine/Pelvis Back: no CVA tenderness Skin General skin exam: no rashes or lesions noted Neuro General: patient oriented x3 Cranial nerves: Yes CN's II-XII intact bilaterally and Yes Equal, round and reactive pupils present Extrem General: Yes normal to inspection Psych Appearance: grossly normal Assessment & Plan Assessment & Plan (1) Recurrent UTI: Comment: She has no urinary symptoms at this time Code(s): N39.0 - Urinary tract infection, site not specified Plan: Would try to acidify urine as needed. No prophylactic antibiotics. Coding Level of Care Code Est Pt Level 3 (09290) Diagnoses Recurrent UTI N39.0
== END 2023-09-14 14:14 | disposition home or self-care (01) ==
LOC: HO.HID 12:59
PROVIDERS: PCP Internal Medicine; Visit Provider Internal Medicine
DX: N39.0 Urinary tract infection, site not specified (principal)
CPT/HCPCS: 99213

== ENCOUNTER → 2023-09-14 12:59 | Outpatient (BNVA) | payer OTHER, SELFPAY | PROVIDERS: PCP Internal Medicine; Visit Provider Internal Medicine | DX: N39.0 Urinary tract infection, site not specified (principal) | CPT/HCPCS: 99212 ==

== ENCOUNTER 2023-09-16 13:28 | Outpatient (REF) | payer OTHER, SELFPAY ==
--- NOTE | ~2023-09-16 | IR_ITS ---
Procedure: Right IJ tunneled central venous catheter removal. History/indication: IV antibiotics completed. Catheter no longer required. Procedure: The right IJ tunneled central venous catheter was removed with gentle traction. Hemostasis was readily achieved. The site was sterilely cleaned and a dressing was placed. IR/IR cvc remov tunnel wo prt/flight hostess IMPRESSION: Removal of right IJ tunneled central venous catheter
== END 2023-09-16 13:29 | disposition home or self-care (01) ==
LOC: HO.RADIR 13:28
PROVIDERS: Visit Provider Internal Medicine
DX: N39.0 Urinary tract infection, site not specified (principal)
CPT/HCPCS: 36589

== ENCOUNTER → 2023-09-16 13:35 | Outpatient (BNV) | payer OTHER, SELFPAY | PROVIDERS: Visit Provider Student in an Organized Health Care Education/Training Program | DX: N39.0 Urinary tract infection, site not specified (principal) | CPT/HCPCS: 36589 ==

== ENCOUNTER 2023-09-23 15:18 | Outpatient (REF) | payer OTHER, SELFPAY ==
[2023-09-23 16:54] LABS: CDiff Gene PCR POSITIVE (Negative)
[2023-09-23 17:28] LABS: CDiff Toxin Positive (Negative)
[2023-09-23 17:29] LABS: CDIFF Internal ctrl Dots and bkg OK (V)
[2023-09-24 12:05] LABS: Adenovirus F 40/41 Not Detected (Not Detect.); Astrovirus Not Detected (Not Detect.); Campylobacter Not Detected (Not Detect.); Cryptosporidium Not Detected (Not Detect.); Cyclospora cayetanensis Not Detected (Not Detect.); E. coli EAEC Not Detected (Not Detect.); E. coli EPEC Not Detected (Not Detect.); E. coli ETEC Not Detected (Not Detect.); E. coli STEC Not Detected (Not Detect.); Entamoeba histolytica Not Detected (Not Detect.); Giardia lamblia Not Detected (Not Detect.); Norovirus GI/GII Not Detected (Not Detect.); Plesiomonas shigelloides Not Detected (Not Detect.); Rotavirus A Not Detected (Not Detect.); Salmonella Not Detected (Not Detect.); Sapovirus Not Detected (Not Detect.); Shigella sp./EIEC Not Detected (Not Detect.); Vibrio Not Detected (Not Detect.); Vibrio Cholerae Not Detected (Not Detect.); Yersinia enterocolitica Not Detected (Not Detect.)
== END 2023-09-23 15:19 | disposition home or self-care (01) ==
LOC: HO.HVNA 15:18
PROVIDERS: Visit Provider Internal Medicine
DX: R10.9 Unspecified abdominal pain (principal); R19.7 Diarrhea, unspecified; Z79.2 Long term (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 antibiotics
CPT/HCPCS: 87324; 87493; 87507

== ENCOUNTER 2023-09-30 10:02 | Outpatient (AMB) | payer OTHER, SELFPAY ==
[2023-09-30 10:09] VITALS: BP 144/60; BMI 43.4
--- NOTE | 2023-09-30 10:09 | MHC.PC.OV ---
Vital Signs 09/30/23 10:09 Height 5 ft Weight 222 lb 6 oz BMI 43.4 BP 144/60 H Blood Pressure Location Rt brachial Position Sitting Intake Visit Reasons: 4 month fu Allergies adhesive tape [ADHESIVE TAPE] Allergy (Intermediate, Verified 09/30/23 10:11) RASH trimethobenzamide [From TIGAN] Allergy (Mild, Verified 09/30/23 10:11) NAUSEA environmental Allergy (Intermediate, Uncoded 09/01/23 12:41) Nasal congestion Medication List - Last Reconciled 09/30/23 by Shelbi Perez MD albuterol sulfate 90 mcg/actuation (ProAir HFA) 2 puffs inhalation Q4H PRN albuterol sulfate 2.5 mg (3 mL) inhalation Q4-6H PRN amlodipine (Norvasc) 5 mg PO DAILY 30 days aspirin 81 mg PO DAILY atorvastatin 80 mg PO DAILY 90 days blood sugar diagnostic (FreeStyle Lite Strips) Use to check blood sugar twice daily and when having symptoms of hypo/hyperglycemia blood sugar diagnostic (SurePoint Medical Ultra Test strips) Use to check blood sugar twice daily and when having symptoms of hypo/hyperglycemia blood-glucose meter (SurePoint Medical Ultra2 Meter) Use to check blood sugar twice daily and when having symptoms of hypo/hyperglycemia bupropion HCl 150 mg PO QPM cholecalciferol (vitamin D3) 25 mcg PO DAILY citalopram 10 mg PO DAILY cyclobenzaprine 10 mg PO TID PRN 7 days diaper,brief,adult,disposable Size medium pull up briefs diaper,brief,adult,disposable Use for stress incontinence gabapentin 900 mg PO BEDTIME gabapentin 300 mg PO QAM hydroxyzine pamoate 25 mg PO BID insulin aspart U-100 (Novolog FlexPen U-100 Insulin aspart) See Protocol sliding scale doses subcut TID insulin detemir U-100 (Levemir FlexPen) 20 units subcut BEDTIME lancets once a day lancets (Stepcaseuch Delica Lancets) Use to check blood sugar twice daily and when having symptoms of hypo/hyperglycemia lisinopril 5 mg PO DAILY metronidazole 500 mg PO TID 10 days montelukast 10 mg PO DAILY multivitamin 1 tab PO DAILY nebulizers (AeroEclipse II Nebulizer) As directed oxygen-air delivery systems As directed pantoprazole 20 mg PO BEDTIME pen needle, diabetic (BD Ultra-Fine Mini Pen Needle) Use to administer insulin twice daily pen needle, diabetic 4x a day pramipexole 0.5 mg PO TID ropinirole 2 mg PO BID Shower Chair Shower chair with back and arm rests trazodone 200 mg PO BEDTIME walker Wheeled walker with seat and brakes Tobacco use date assessed: 09/30/23 Fall risk assessment: No Falls in past year Last assessed Fall Risk: 09/30/23 Dental Screening Dental Screen Date: 09/30/23 Did you have a dental visit in the last 12 months?: No Did you have a dental problem in the last 6 months where you did not have access to dental care?: No Was dental information given to patient?: No HPI 4 month fu HPI Details Patient is a 73-year-old female who was in hospital September 01 secondary to pyelonephritis and kidney stones She was treated with IV antibiotic CT scan of abdomen showed Both kidneys are normal size, position size and position. There is a nonobstructive 6 mm radiopaque calculi lower pole calyx left kidney. No additional radiopaque calculi seen. Both ureters are normal caliber. She is trying to make appointment with Urology but could not get in touch with them I have sent message to Urology front office She also missed appointment with Dr. Frederick special education curriculum specialist as she was in the hospital Patient is doing well now However her sugars are out of control and are running around 300s She is currently taking Levemir 20 units in the morning, and NovoLog 3 times a day as per insulin sliding scale, patient says that she end up taking 10 units 3 times a day I am increasing Levemir to 20 units in the morning and 10 units at night She is to continue monitoring her blood sugar, we will book telemedicine visit in 2 weeks to check on that. Anemia: She will also have labs done today She has diabetic nephropathy, and has seen Nephrology at [facility], follow-up appointment is booked for October She want handicap placard paperwork filled, which I have for her patient have a diabetic neuropathy it is difficult for her to walk long distance. She has appointment booked for February [facility] Medical History Kidney stone on left side Diabetes 1.5, managed as type 1 Recurrent UTI COPD (chronic obstructive pulmonary disease) Respiratory failure with hypoxia Urinary tract infection Hypoxemia Morbid obesity CKD (chronic kidney disease) Anemia COPD exacerbation Allergic rhinitis ALDO (obstructive sleep apnea) Obesity (BMI 30-39.9) Constipation due to opioid therapy Osteoarthritis of left knee Hx SBO Hyperlipidemia CPAP (continuous positive airway pressure) dependence History of adrenal adenoma Osteochondroma of left femur Arthritis Diabetes Elevated cholesterol History of restless legs syndrome History of diverticulitis GERD (gastroesophageal reflux disease) Surgical History H/O excision of mass History of oophorectomy History of cholecystectomy History of appendectomy History of arthroscopy of left knee History of partial colectomy Hx of cataract extraction H/O exploratory laparotomy H/O colonoscopy History of surgery History of hysterectomy Family History Father HTN (hypertension) Diabetes mellitus Mother HTN (hypertension) Liver cancer Social History 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: Spouse 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 Other:: EX Housing: Apartment Are you a primary career placement services counselor to a significant other at home: No Do you presently have visiting nurse or other home services: 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 Ellis Child, Nimo Castillo, Miguel East and colleagues, with an educational miki from [employer]. Review of Systems Const Denies chills and Denies fever(s) ENT Denies epistaxis and Denies nasal discharge Card Denies chest pain Resp Denies chest congestion, Denies cough and Denies hemoptysis GI Denies diarrhea and Denies nausea Skin/Breast Denies rash Neuro Reports no additional complaints Psych Reports no additional complaints Endo Reports no additional complaints Physical exam (Primary Care) Vital Signs: Last Vital Signs BP 144/60 H 09/30/23 10:09 BMI result Body Mass Index 43.4 Tobacco/Smoking Status: Tobacco use Status Tobacco use date assessed 09/30/23 09/30/23 10:15 Patient Tobacco Use Status Never used Tobacco 09/30/23 10:15 e-Cigarette/Vaping Use Never Used 09/30/23 10:15 Thrive Assessment: Date of Thrive Assessment Date Thrive assessed 09/03/23 09/30/23 10:15 Const General: cooperative, comfortable and no acute distress Orientation/consciousness: patient oriented x3 HENMT Head: Yes normocephalic Eyes General: appearance normal, both eyes and all related structures Neck Neck: Yes supple Resp Effort & Inspection: normal respiratory effort, no cough and no stridor Cardio Rhythm: regular rhythm Heart sounds: S1 normal heart sound present and S2 normal heart sound present Skin General skin exam: turgor normal Neuro General: patient oriented x3, tone normal and moves all extremities Extrem Right lower extremity: no edema Left lower extremity: no edema Assessment and Plan Assessment & Plan (1) Uncontrolled diabetes mellitus: Qualifiers: Diabetes mellitus type: type 1 Glycemic state: with hyperglycemia (2) Diabetic nephropathy: Code(s): E11.21 - Type 2 diabetes mellitus with diabetic nephropathy Qualifiers: Diabetes mellitus type: type 1 Qualified Code(s): E10.21 - Type 1 diabetes mellitus with diabetic nephropathy (3) Microalbuminuria: Code(s): R80.9 - Proteinuria, unspecified (4) CKD (chronic kidney disease): Code(s): N18.9 - Chronic kidney disease, unspecified Qualifiers: Chronic kidney disease stage: stage 3 (moderate) Chronic kidney disease stage 3 subtype: stage 3b (GFR 30-44) Qualified Code(s): N18.32 - Chronic kidney disease, stage 3b (5) Morbid obesity: Code(s): E66.01 - Morbid (severe) obesity due to excess calories (6) COPD (chronic obstructive pulmonary disease): Code(s): J44.9 - Chronic obstructive pulmonary disease, unspecified Qualifiers: COPD type: emphysema Emphysema type: panlobular Qualified Code(s): J43.1 - Panlobular emphysema (7) Insulin dependent diabetes mellitus type IA: Code(s): E10.9 - Type 1 diabetes mellitus without complications (8) USP (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 insulin: Code(s): Z79.4 - 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 difficile diarrhea: Code(s): A04.72 - Enterocolitis due to Clostridium difficile, not specified as recurrent (10) Depression, major, recurrent: Code(s): F33.9 - Major depressive disorder, recurrent, unspecified Qualifiers: Active/Remission status: in partial remission Qualified Code(s): F33.41 - Major depressive disorder, recurrent, in partial remission (11) Anxiety, generalized: Code(s): F41.1 - Generalized anxiety disorder (12) Diabetic neuropathy, painful: Code(s): E11.40 - Type 2 diabetes mellitus with diabetic neuropathy, unspecified Plan Patient is a 73-year-old female who was in hospital September 01 secondary to pyelonephritis and kidney stones She was treated with IV antibiotic CT scan of abdomen showed Both kidneys are normal size, position size and position. There is a nonobstructive 6 mm radiopaque calculi lower pole calyx left kidney. No additional radiopaque calculi seen. Both ureters are normal caliber. She is trying to make appointment with Urology but could not get in touch with them I have sent message to Urology front office She also missed appointment with Dr. Frederick special education curriculum specialist as she was in the hospital Patient is doing well now However her sugars are out of control and are running around 300s She is currently taking Levemir 20 units in the morning, and NovoLog 3 times a day as per insulin sliding scale, patient says that she end up taking 10 units 3 times a day I am increasing Levemir to 20 units in the morning and 10 units at night She is to continue monitoring her blood sugar, we will book telemedicine visit in 2 weeks to check on that. Anemia: She will also have labs done today She has diabetic nephropathy, and has seen Nephrology at [facility], follow-up appointment is booked for October She want handicap zeyad paperwork filled, which I have for her patient have a diabetic neuropathy it is difficult for her to walk long distance. She has appointment booked for February She recently had C difficile diarrhea as well and is currently taking antibiotic for that, feeling better Orders: Orders Complete Blood Count Auto Diff Today E10.9 - Type 1 diabetes mellitus without complications, E11.21 - Type 2 diabetes mellitus with diabetic nephropathy, E66.01 - Morbid (severe) obesity due to excess calories, J44.1 - Chronic obstructive pulmonary disease with (acute) exacerbation, J44.9 - Chronic obstructive pulmonary disease, unspecified, N18.9 - Chronic kidney disease, unspecified, R80.9 - Proteinuria, unspecified, Z79.4 - USP (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 insulin LDL Cholesterol Direct Today E10.9 - Type 1 diabetes mellitus without complications, E11.21 - Type 2 diabetes mellitus with diabetic nephropathy, E66.01 - Morbid (severe) obesity due to excess calories, J44.1 - Chronic obstructive pulmonary disease with (acute) exacerbation, J44.9 - Chronic obstructive pulmonary disease, unspecified, N18.9 - Chronic kidney disease, unspecified, R80.9 - Proteinuria, unspecified, Z79.4 - ferry terminal supervisor (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 insulin Hemoglobin A1c Today E10.9 - Type 1 diabetes mellitus without complications, E11.21 - Type 2 diabetes mellitus with diabetic nephropathy, E66.01 - Morbid (severe) obesity due to excess calories, J44.1 - Chronic obstructive pulmonary disease with (acute) exacerbation, J44.9 - Chronic obstructive pulmonary disease, unspecified, N18.9 - Chronic kidney disease, unspecified, R80.9 - Proteinuria, unspecified, Z79.4 - ferry terminal supervisor (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 insulin Ferritin Today E10.9 - Type 1 diabetes mellitus without complications, E11.21 - Type 2 diabetes mellitus with diabetic nephropathy, E66.01 - Morbid (severe) obesity due to excess calories, J44.1 - Chronic obstructive pulmonary disease with (acute) exacerbation, J44.9 - Chronic obstructive pulmonary disease, unspecified, N18.9 - Chronic kidney disease, unspecified, R80.9 - Proteinuria, unspecified, Z79.4 - ferry terminal supervisor (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 insulin Comprehensive Met. Panel Today E10.9 - Type 1 diabetes mellitus without complications, E11.21 - Type 2 diabetes mellitus with diabetic nephropathy, E66.01 - Morbid (severe) obesity due to excess calories, J44.1 - Chronic obstructive pulmonary disease with (acute) exacerbation, J44.9 - Chronic obstructive pulmonary disease, unspecified, N18.9 - Chronic kidney disease, unspecified, R80.9 - Proteinuria, unspecified, Z79.4 - USP (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 insulin TSH reflex Free T4 Today E10.9 - Type 1 diabetes mellitus without complications, E11.21 - Type 2 diabetes mellitus with diabetic nephropathy, E66.01 - Morbid (severe) obesity due to excess calories, J44.1 - Chronic obstructive pulmonary disease with (acute) exacerbation, J44.9 - Chronic obstructive pulmonary disease, unspecified, N18.9 - Chronic kidney disease, unspecified, R80.9 - Proteinuria, unspecified, Z79.4 - ferry terminal supervisor (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 insulin Coding Level of Care Code Est Pt Level 5 (86494) Diagnoses Uncontrolled diabetes mellitus Diabetes mellitus type: type 1 Glycemic state: with hyperglycemia Diabetic nephropathy associated with type 1 diabetes mellitus E10.21 Diabetes mellitus type: type 1 Microalbuminuria R80.9 Stage 3b chronic kidney disease N18.32 Chronic kidney disease stage: stage 3 (moderate) Chronic kidney disease stage 3 subtype: stage 3b (GFR 30-44) Morbid obesity E66.01 Panlobular emphysema J43.1 COPD type: emphysema Emphysema type: panlobular Insulin dependent diabetes mellitus type IA E10.9 ferry 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 difficile diarrhea A04.72 Recurrent major depressive disorder, in partial remission F33.41 Active/Remission status: in partial remission Anxiety, generalized F41.1 Diabetic neuropathy, painful E11.40 Time Spent (min) 45 Comment 5 minute pre visit, 30 minutes with the patient, 5 minute charting, 5 minute paperwork
== END 2023-09-30 10:42 | disposition home or self-care (01) ==
PROVIDERS: PCP Internal Medicine; Visit Provider Internal Medicine
DX: E10.21 Type 1 diabetes mellitus with diabetic nephropathy (principal); N18.32 Chronic kidney disease, stage 3b; E66.01 Morbid (severe) obesity due to excess calories; J43.1 Panlobular emphysema; Z79.4 Long term (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 insulin; F33.41 Major depressive disorder, recurrent, in partial remission; E11.40 Type 2 diabetes mellitus with diabetic neuropathy, unspecified; J44.1 Chronic obstructive pulmonary disease with (acute) exacerbation; R80.9 Proteinuria, unspecified; A04.72 Enterocolitis due to Clostridium difficile, not specified as recurrent; F41.1 Generalized anxiety disorder
CPT/HCPCS: 99215

== ENCOUNTER 2023-09-30 10:44 | Outpatient (REF) | payer OTHER, SELFPAY ==
[2023-09-30 13:24] LABS: MANUAL DIFF FLAG NO
[2023-09-30 13:39] LABS: Basophils Percent Auto 0.4 % (0-2); Eosinophils Absolute Auto 0.4 X10*3/uL (0.0-0.4); Eosinophils Percent Auto 4.8 % (0-4); Hemoglobin 11.7 g/dl (12.0-16.0); Imm Gran Abs Auto 0.03 X10*3/uL (0.00-0.03); Imm Gran Pct Auto 0.4 % (0.0-0.4); Lymphocytes Absolute Auto 2.7 X10*3/uL (1.2-4.9); Lymphocytes Percent Auto 31.1 % (20-40); Mean Corpuscular HGB Conc 31.6 g/dl (31.0-35.0); Mean Corpuscular Volume 88.5 fL (80.0-98.0); Mean Platelet Volume 12.9 fL (9.4-12.3); Monocytes Absolute Auto 0.6 X10*3/uL (0.1-1.2); Monocytes Percent Auto 7.4 % (2-11); Neutrophils Absolute Auto 4.8 x10*3/uL (2.0-8.3); Neutrophils Percent Auto 55.9 % (45-73); Platelet Count 267 X10*3/uL (160-400); Red Blood Count 4.18 X10*6/uL (4.20-5.50); Red Cell Distribution Width 13.4 % (11.0-16.0); White Blood Count 8.5 X10*3/uL (4.8-10.8)
[2023-09-30 14:00] LABS: Alanine Aminotransferase 27 U/L (0-31); Albumin Level 3.6 g/dL (3.5-5.0); Alkaline Phosphatase 44 U/L (39-117); Anion Gap 15 (12-20); Aspartate Amino Transferase 29 U/L (5-31); Bilirubin Total 0.2 mg/dL (0.0-1.0); Blood Urea Nitrogen 16 mg/dL (9-16); Calcium 9.3 mg/dL (8.4-10.2); Carbon Dioxide 25 mmol/L (22-29); Chloride 105 mmol/L (96-108); Estimated Glomerular Filt Rate 34; Glucose Random 266 mg/dL (60-115); Potassium 3.8 mmol/L (3.3-5.1); Sodium 141 mmol/L (135-145); Total Protein 6.6 g/dL (6.5-8.0)
[2023-09-30 14:02] LABS: Estimated Average Glucose 203 mg/dL; Hemoglobin A1c % 8.7 % (<6.0)
[2023-09-30 14:09] LABS: Ferritin 52 ng/mL (10-250); TSH reflex Free T4 0.72 uIU/mL (0.32-4.0)
[2023-10-02 16:08] LABS: LDL Cholesterol Direct 76 mg/dL (<100)
== END 2023-09-30 10:45 | disposition home or self-care (01) ==
LOC: HO.HMGCLDS 10:44
PROVIDERS: PCP Internal Medicine; Visit Provider Internal Medicine
DX: E11.21 Type 2 diabetes mellitus with diabetic nephropathy (principal); N18.9 Chronic kidney disease, unspecified; E66.01 Morbid (severe) obesity due to excess calories; J44.1 Chronic obstructive pulmonary disease with (acute) exacerbation; R80.9 Proteinuria, unspecified; Z79.4 Long term (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 insulin
CPT/HCPCS: 36415; 80053; 82728; 83036; 83721; 84443; 85025

== ENCOUNTER 2023-10-01 13:29 | Emergency (ER) | payer OTHER, SELFPAY ==
--- NOTE | ~2023-10-01 | CT_ITS ---
EXAMINATION: CT ABDOMEN AND PELVIS WITHOUT CONTRAST CLINICAL INFORMATION: Left flank pain COMPARISON: CT abdomen pelvis 09/01/2023 TECHNIQUE: Multidetector volumetric imaging was performed from the superior aspect of the liver through the pubic symphysis. Sagittal and coronal reformatted images were obtained on the technologist's workstation. This CT examination was performed using dose optimization techniques as appropriate, variously including the following: *Automated exposure control *Adjustment of mA and/or kV according to patient size (this includes techniques or standardized protocols for targeted exams where dose is matched to indication/reason for exam; i.e. extremities or head) *Use of iterative reconstruction technique DLP: 984 mGy-cm FINDINGS: LUNG BASES: The visualized lung bases are unremarkable. LIVER, GALLBLADDER, AND BILIARY TREE: The liver is normal in size, shape, and attenuation. No focal hepatic lesion or biliary ductal dilatation is present. The gallbladder is not visualized likely contracted or surgically removed. PANCREAS: Unremarkable. SPLEEN: Unremarkable. ADRENAL GLANDS: Unremarkable. KIDNEYS AND URETERS: The kidneys are normal in size, shape, and attenuation. There is 6 mm nonobstructive radiopaque calculi lower pole calyx left kidney. No additional radiopaque calculi seen. There is no caliectasis or hydronephrosis. Both ureters are normal caliber. There is no perinephric stranding. BLADDER: Unremarkable. GASTROINTESTINAL TRACT: Scattered stool, diverticuli and gas is seen in colon without distention or diverticulitis. The small bowel loops are normal caliber. Appendix is not seen. Cecum is low-lying in the pelvis ABDOMINAL WALL: No significant hernia is appreciated. LYMPH NODES: Normal. VASCULAR: Unremarkable. PELVIC VISCERA: There are annular stephanie or sutures in the sigmoid colon from previous intervention widely patent lumen. There is scattered colonic diverticulosis without diverticulitis. No colonic distention. The small bowel loops are normal caliber. Appendix is not seen. No free air or free fluid. OSSEOUS STRUCTURES: Mild degenerative disc changes with vacuum disc phenomena L5/S1 disc level. No aggressive lytic or sclerotic process seen. CT/CT abdomen pelvis wo IV con IMPRESSION: 1. Nonobstructive 6 mm radiopaque calculi lower pole calyx left kidney. No caliectasis or hydronephrosis. It is stable compared to last CT abdomen exam 2. Colonic diverticulosis without diverticulitis. Fleischner guidelines were followed.
[2023-10-01 13:57] VITALS: BP 117/51; BP 138/72; PULSE 84; PULSE 86; RESP 18; TEMP 36.7; O2SAT 96; O2SAT 98; BMI 45.9
--- NOTE | 2023-10-01 14:05 | ED_ITS ---
HPI - Female Genitourinary General Chief complaint: Urogenital-Female Stated complaint: LOWER L BACK PAIN DIFF BREATHING Time Seen by Provider: 10/01/23 13:36 Source: patient and EMS Mode of arrival: EMS Limitations: no limitations History of Present Illness HPI Narrative: 73-year-old female brought in by ambulance for evaluation of left flank pain started 1 hour before arrival. Patient was hospitalized from 09/02 23 to 08/2023 for acute pyelonephritis that was treated with ertapenem, as reported by the patient she developed C diff currently taking oral vancomycin. About 1 hour ago patient started with left flank pain radiating down to the left groin, no fever, no chills. No recent fall, no trauma, no back injury recently. History of insulin-dependent diabetes been running high glucose despite using Lantus and sliding scale with NovoLog. Related Data Home Medications Medication Instructions Recorded Confirmed bupropion HCl 150 mg 24 hr tablet, 150 mg PO QPM 04/25/20 09/30/23 extended release oxygen-air delivery systems ##1 04/25/20 09/30/23 blood sugar diagnostic (FreeStyle 08/09/21 09/30/23 Lite Strips) aspirin 81 mg chewable tablet 81 mg PO DAILY 10/01/21 09/30/23 trazodone 100 mg tablet 200 mg PO BEDTIME 10/01/21 09/30/23 cholecalciferol (vitamin D3) 25 25 mcg PO DAILY 01/04/22 09/30/23 mcg (1,000 unit) capsule hydroxyzine pamoate 25 mg capsule 25 mg PO BID 08/13/22 09/30/23 citalopram 10 mg tablet 10 mg PO DAILY 06/06/23 09/30/23 multivitamin 1 tab PO DAILY 06/06/23 09/30/23 gabapentin 300 mg capsule 300 mg PO QAM 07/22/23 09/30/23 albuterol sulfate 90 mcg/actuation 2 puff inhalation Q4H PRN 09/02/23 09/30/23 aerosol inhaler (ProAir HFA) shortness of breath or wheezing gabapentin 300 mg capsule 900 mg PO BEDTIME 09/02/23 09/30/23 pantoprazole 20 mg tablet,delayed 20 mg PO BEDTIME 09/02/23 09/30/23 release pramipexole 0.5 mg tablet 0.5 mg PO TID 09/02/23 09/30/23 ropinirole 2 mg tablet 2 mg PO BID 09/02/23 09/30/23 Previous Rx's Medication Instructions Recorded nebulizers (AeroEclipse II #1 ea 02/05/21 Nebulizer) lancets 28 gauge #100 ea 06/24/21 diaper,brief,adult,disposable #64 ea 05/06/22 lancets 30 gauge (OneTouch Delica #100 ea 09/16/22 Lancets) blood-glucose meter (OneTouch #1 ea 09/19/22 Ultra2 Meter) pen needle, diabetic 31 gauge x #100 ea 10/14/2209/25 (BD Ultra-Fine Mini Pen Needle) pen needle, diabetic 31 gauge x #1,200 ea 02/18/2309/25 walker #1 ea 05/20/23 Shower Chair #1 ea 05/27/23 amlodipine 5 mg tablet (Norvasc) 5 mg PO DAILY 30 days #90 tabs 08/06/23 atorvastatin 80 mg tablet 80 mg PO DAILY 90 days #90 tabs 08/06/23 insulin aspart U-100 100 unit/mL See Protocol subcut TID #30 mL 08/06/23 (3 mL) subcutaneous pen (Novolog FlexPen U-100 Insulin aspart) lisinopril 5 mg tablet 5 mg PO DAILY #90 tabs 08/06/23 montelukast 10 mg tablet 10 mg PO DAILY #90 tabs 08/06/23 cyclobenzaprine 10 mg tablet 10 mg PO TID PRN muscle spasm 7 08/28/23 days #20 tabs diaper,brief,adult,disposable #200 ea 09/07/23 albuterol sulfate 2.5 mg/3 mL 2.5 mg (3 mL) inhalation Q4-6H PRN 09/15/23 (0.083 %) solution for nebulization shortness of breath or wheezing #75 mL metronidazole 500 mg tablet 500 mg PO TID 10 days #30 tabs 09/23/23 blood sugar diagnostic (OneTouch #100 ea 09/30/23 Ultra Test strips) insulin detemir U-100 100 unit/mL See Rx Instructions subcut 09/30/23 (3 mL) subcutaneous pen (Levemir .COMPLEX #30 mL FlexPen) Allergies Allergy/AdvReac Type Severity Reaction Status Date / Time adhesive tape [ADHESIVE TAPE] Allergy Intermediate RASH Verified 09/30/23 10:11 trimethobenzamide Allergy Mild NAUSEA Verified 09/30/23 10:11 [From TIGAN] environmental Allergy Intermediate Nasal Uncoded 09/01/23 12:41 congestion Review of Systems 2 Review of Systems: All other systems are reviewed and are negative Constitutional: Reports as per HPI and Reports no additional constitutional complaints Eyes: Reports as per HPI and Reports no additional eye complaints Reports system reviewed and no additional complaints, except as documented Cardiovascular: Reports as per HPI and Reports no additional cardiovascular complaints Respiratory: Reports as per HPI and Reports no additional respiratory complaints Gastrointestinal: Reports as per HPI and Reports no additional gastrointestinal complaints Genitourinary: Reports no additional female genitourinary complaints Musculoskeletal: Reports no additional musculoskeletal complaints Skin/Breast: Reports system reviewed and no additional complaints, except as docu Psychiatric: Reports no additional psychiatric complaints Endocrine: Reports no additional endocrine complaints Hematologic/Lymphatic: Reports no additional hematologic/lymphatic complaints Allergic/Immunologic: Reports no additional allergic/immunologic complaints Reports system reviewed and no additional complaints, except as documented and Reports Abnormal speech present [facility] Past Medical History Medical History Kidney stone on left side Diabetes 1.5, managed as type 1 Recurrent UTI COPD (chronic obstructive pulmonary disease) Respiratory failure with hypoxia Urinary tract infection Hypoxemia Morbid obesity CKD (chronic kidney disease) Anemia COPD exacerbation Allergic rhinitis ALDO (obstructive sleep apnea) Obesity (BMI 30-39.9) Constipation due to opioid therapy Osteoarthritis of left knee Hx SBO Hyperlipidemia CPAP (continuous positive airway pressure) dependence History of adrenal adenoma Osteochondroma of left femur Arthritis Diabetes Elevated cholesterol History of restless legs syndrome History of diverticulitis GERD (gastroesophageal reflux disease) Surgical History H/O excision of mass History of oophorectomy History of cholecystectomy History of appendectomy History of arthroscopy of left knee History of partial colectomy Hx of cataract extraction H/O exploratory laparotomy H/O colonoscopy History of surgery History of hysterectomy Family History Family History Father HTN (hypertension) Diabetes mellitus Mother HTN (hypertension) Liver cancer Social History Social History 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: Spouse 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 Other:: EX Housing: Apartment Are you a primary hospice patient care secretary to a significant other at home: No Do you presently have visiting nurse or other home services: Yes (Home residential monitor.) Unable to assess alcohol history related to: Unknown Alcohol intake: never Comment: PT SLEEPING Patient Tobacco Use Status: Never used Tobacco e-Cigarette/Vaping Use: Never Used Second Hand Smoke Exposure: No Advance Directives: No Advance Directives Date on File: 07/08/21 service: No Current occupational status: retired Cognitive needs: No Hearing needs: No Vision needs: No Physical Exam 2 Vital Signs: Vital Signs: Last Vital Signs Temp 97.9 F 10/01/23 16:08 Pulse 81 10/01/23 16:08 Resp 17 10/01/23 16:08 BP 108/51 L 10/01/23 16:08 Pulse Ox 99 10/01/23 16:08 O2 Del Method Nasal Cannula 10/01/23 16:08 O2 Flow Rate 2 10/01/23 16:08 BMI result Body Mass Index 45.9 Vital signs have been reviewed and appear to be correct. Blood pressure elevated. Heart rate normal. Respiratory rate normal. Temperature normal. Oxygen saturation normal. Appearance: Alert. Oriented X3. No acute distress. Head: Normal external exam. Normocephalic. Atraumatic. No Hammer signs noted. No raccoon eyes noted Eyes: PERRLA. EOMI. Conjunctiva and sclera normal. Eyelids normal. ENT: TM's Normal. Pharynx normal. Uvula midline. Moist mucous membranes. No trismus noted. No drooling noted. No muffled voice noted. Neck: Normal inspection. Neck supple. FROM. No adenopathy. Thyroid Normal. No meningeal signs. No neck mass noted. CVS: Normal heart rate and rhythm. Heart sound normal. No murmurs noted. Pulses normal throughout. Respiratory: No respiratory distress. Painless inspiration. Breath sounds normal. No wheezes/rales/rhonchi noted. Chest nontender. No accessory muscle usage noted or decreased air movement noted. Abdomen: Soft and nontender. Bowel sounds normal in all 4 quadrants. No distention noted. No organomegaly noted. No visible injury noted. Back: No CVA tenderness. Full range of motion noted. Skin: Skin warm and dry. Normal skin color. Normal skin turgor. No rashes/lesions/lacerations noted. Extremities: No lower extremity edema. Extremities exhibit normal range of motion. Extremities nontender. Neuro: Oriented X 3. Cranial nerve exam: II-XII are grossly intact No motor deficit. No sensory deficit. Reflexes normal. Course Reevaluation(s) Reevaluation #1: Myofascial pain in the left flank area. No UTI, kidney stones, patient feels better after was given IM morphine. Time: 19:19 Medications Administered Discontinued Medications Generic Name Dose Route Start Last Admin Trade Name Freq PRN Reason Stop Dose Admin Hydromorphone HCl 1 mg 10/01/23 13:49 10/01/23 16:12 Hydromorphone Hcl 1 Mg/Ml Syringe IVPUSH 10/01/23 13:50 Not Given ONCE ONE Protocol Sodium Chloride 1,000 mls @ 999 mls/hr 10/01/23 13:49 10/01/23 16:11 Ns IV 10/01/23 14:49 Not Given .Q1H1M ONE Ketorolac Tromethamine 15 mg 10/01/23 13:49 10/01/23 16:12 Ketorolac Tromethamine 15 Mg/Ml Vial IVPUSH 10/01/23 13:50 Not Given ONCE ONE Morphine Sulfate 2 mg 10/01/23 15:55 10/01/23 16:08 Morphine Sulfate 2 Mg/Ml Cartridge IM 10/01/23 15:56 2 mg ONCE ONE Administration Protocol Medical Decision Making Differential Diagnosis Differential Diagnoses: The differential diagnosis associated with the presentation includes (UTI, pyelonephritis, kidney stones, myofascial pain, electrolyte derangement, severe anemia.) Admission/Observation Consideration of admission/observation: Escalation of care including admission/observation considered Lab Data MDM Lab Attestation statement: I reviewed the patient's lab results. 10/01/23 14:00 10/01/23 14:00 Labs: Lab Results 10/01/23 10/01/23 10/01/23 Range/Units 14:00 14:01 14:41 WBC 7.6 (4.8-10.8) X10*3/uL RBC 3.95 L (4.20-5.50) X10*6/uL Hgb 11.0 L (12.0-16.0) g/dl Hct 34.9 L (37.0-47.0) % MCV 88.4 (80.0-98.0) fL MCH 27.8 (27.0-33.0) pg MCHC 31.5 (31.0-35.0) g/dl RDW 13.4 (11.0-16.0) % Plt Count 236 (160-400) X10*3/uL MPV 12.1 (9.4-12.3) fL Immature Gran % (Auto) 0.4 (0.0-0.4) % Neut % (Auto) 52.3 (45-73) % Lymph % (Auto) 31.8 (20-40) % [place] % (Auto) 9.6 (2-11) % Eos % (Auto) 5.6 H (0-4) % Baso % (Auto) 0.3 (0-2) % Lymph # (Auto) 2.4 (1.2-4.9) X10*3/uL [place] # (Auto) 0.7 (0.1-1.2) X10*3/uL Eos # (Auto) 0.4 (0.0-0.4) X10*3/uL Baso # (Auto) 0.0 (0.0-0.2) X10*3/uL Abs Immat Gran (auto) 0.03 (0.00-0.03) X10*3/uL Absolute Neuts (auto) 4.0 (2.0-8.3) x10*3/uL Absolute Nucleated RBC 0.000 (0.0-0.012) X10*3/uL Nucleated RBC % (auto) 0.0 (0.0-0.2) /100WBC Sodium 142 (135-145) mmol/L Potassium 3.7 (3.3-5.1) mmol/L Chloride 102 (96-108) mmol/L Carbon Dioxide 30 H (22-29) mmol/L Anion Gap 14 (12-20) BUN 16 (9-16) mg/dL Creatinine 1.23 (0.5-1.4) mg/dL Estim Creat Clear Calc 45.0 Estimated GFR 43 Random Glucose 299 H (60-115) mg/dL Calcium 9.0 (8.4-10.2) mg/dL Total Bilirubin 0.2 (0.0-1.0) mg/dL Direct Bilirubin < 0.2 (0.0-0.5) mg/dL AST 20 (5-31) U/L ALT 22 (0-31) U/L Alkaline Phosphatase 40 (39-117) U/L Troponin I High Sens < 2.7 (<3.5-17.0) ng/L B-Natriuretic Peptide 11 (<100) pg/mL Total Protein 5.8 L (6.5-8.0) g/dL Albumin 3.4 L (3.5-5.0) g/dL Lipase 24 (8-78) U/L Urine Color Yellow Urine Appearance Clear Urine pH 5.5 (5.0-9.0) Ur Specific [place] 1.015 (1.005-1.025) Urine Protein Negative (Neg-Trace) mg/dL Urine Glucose (UA) >=1000 H (Negative) mg/dL Urine Ketones Negative (Negative) mg/dL Urine Blood Negative (Negative) Urine Nitrite Negative (Negative) Ur Leukocyte Esterase Negative (Negative) Urine RBC 0-2 (0-2) /HPF Urine WBC 0-5 (0-5) /HPF Ur Squamous Epith Cells 0-2 (0-2) /HPF Urine Bacteria 1+ (None Seen) Hyaline Casts 0-2 (0-2) /LPF Urine Yeast Present Influenza Type A (PCR) NEGATIVE (Negative) Influenza Type B (PCR) NEGATIVE (Negative) RSV RNA Qual (PCR) NEGATIVE (Negative) SARS-CoV-2 RNA (RT-PCR) NEGATIVE (Negative) Independent Interpretation I performed an independent interpretation of an: CT Scan (Abdomen and pelvis:1. Nonobstructive 6 mm radiopaque calculi lower pole calyx left kidney. No caliectasis or hydronephrosis. It is stable compared to last CT abdomen exam 2. Colonic diverticulosis without diverticulitis. ) Radiology Impression Discussion of test interpretation with radiology: I have reviewed the radiologist's reading. Discharge Plan Discharge Clinical Impression: Myofascial pain Patient Disposition: Home, Self-Care Instructions: Musculoskeletal Pain (ED) Prescriptions: No Action (DME) lancets 28 gauge misc See Rx Instructions topical TID Qty: 100 3RF Rx Instructions: once a day (DME) FreeStyle Lite Strips Strip See Rx Instructions .Route Rx Instructions: Use to check blood sugar twice daily and when having symptoms of hypo/hyperglycemia (DME) diaper,brief,adult,disposable Misc See Rx Instructions .Route Qty: 64 5RF Rx Instructions: Use for stress incontinence (DME) lancets [Co.ImportTouch Delica Lancets] 30 gauge misc See Rx Instructions .Route Qty: 100 2RF Rx Instructions: Use to check blood sugar twice daily and when having symptoms of hypo/hyperglycemia (DME) blood-glucose meter [Co.ImportTouch Ultra2 Meter] Misc See Rx Instructions .Route Qty: 1 0RF Rx Instructions: Use to check blood sugar twice daily and when having symptoms of hypo/hyperglycemia (DME) pen needle, diabetic [BD Ultra-Fine Mini Pen Needle] 31 gauge x 3/16 needle See Rx Instructions .Route Qty: 100 2RF Rx Instructions: Use to administer insulin twice daily (DME) walker Misc See Rx Instructions .Route Qty: 1 0RF Rx Instructions: Wheeled walker with seat and brakes (DME) Shower Chair Misc See Rx Instructions .Route Qty: 1 0RF Rx Instructions: Shower chair with back and arm rests amlodipine [Norvasc] 5 mg tablet 5 mg PO DAILY 30 Days Qty: 90 0RF atorvastatin 80 mg tablet 80 mg PO DAILY 90 Days Qty: 90 0RF insulin aspart U-100 [Novolog FlexPen U-100 Insulin] 100 unit/mL (3 mL) insulin pen See Protocol subcut TID Qty: 30 0RF Protocol: Insulin Correction Scale Less than or equal to 110 ---- Give (units): 0 111 to 150 Give (units): 0 151 to 200 Give (units): 2 201 to 250 Give (units): 4 251 to 300 Give (units): 6 301 to 350 Give (units): 8 Greater than 350 Give (units): 10 Call MD if Blood Glucose > : 350 Rx Instructions: Up to 10 units before each meal according to sliding scale montelukast 10 mg tablet 10 mg PO DAILY Qty: 90 1RF lisinopril 5 mg tablet 5 mg PO DAILY Qty: 90 0RF (DME) diaper,brief,adult,disposable Misc See Rx Instructions .Route Qty: 200 5RF Rx Instructions: Size medium pull up briefs albuterol sulfate 2.5 mg /3 mL (0.083 %) solution for nebulization 2.5 mg inhalation Q4-6H PRN (Reason: shortness of breath or wheezing) Qty: 75 0RF metronidazole 500 mg tablet 500 mg PO TID 10 Days Qty: 30 0RF Levemir FlexPen 100 unit/mL (3 mL) insulin pen See Rx Instructions subcut .COMPLEX Qty: 30 0RF Rx Instructions: Take 20 units in am, 10 units at night subcutaneously; (DME) OneTouch Ultra Test Strip See Rx Instructions .Route Qty: 100 2RF Rx Instructions: Use to check blood sugar twice daily and when having symptoms of hypo/hyperglycemia (DME) AeroEclipse II Nebulizer Misc See Rx Instructions .ROUTE .MEDSUPPLY Qty: 1 0RF Rx Instructions: As directed hydroxyzine pamoate 25 mg capsule 25 mg PO BID trazodone 100 mg tablet 200 mg PO BEDTIME aspirin 81 mg Tablet,Chewable 81 mg PO DAILY cholecalciferol (vitamin D3) 25 mcg (1,000 unit) Capsule 25 mcg PO DAILY multivitamin Tablet 1 tab PO DAILY citalopram 10 mg tablet 10 mg PO DAILY gabapentin 300 mg capsule 300 mg PO QAM albuterol sulfate [ProAir HFA] 90 mcg/actuation HFA aerosol inhaler 2 puff inhalation Q4H PRN (Reason: shortness of breath or wheezing) gabapentin 300 mg Capsule 900 mg PO BEDTIME pantoprazole 20 mg tablet,delayed release (DR/EC) 20 mg PO BEDTIME pramipexole 0.5 mg tablet 0.5 mg PO TID ropinirole 2 mg tablet 2 mg PO BID cyclobenzaprine 10 mg tablet 10 mg PO TID PRN (Reason: muscle spasm) 7 Days Qty: 20 0RF (DME) pen needle, diabetic 31 gauge x 3/16 needle See Rx Instructions subcut TID Qty: 1200 1RF Rx Instructions: 4x a day bupropion HCl 150 mg tablet extended release 24 hr 150 mg PO QPM (DME) oxygen-air delivery systems Device See Rx Instructions .ROUTE .MEDSUPPLY Qty: 1 Rx Instructions: As directed Referrals: Shelbi Perez MD [Primary Care Provider] -
[2023-10-01 14:11] LABS: MANUAL DIFF FLAG NO
[2023-10-01 14:14] LABS: Basophils Percent Auto 0.3 % (0-2); Eosinophils Absolute Auto 0.4 X10*3/uL (0.0-0.4); Eosinophils Percent Auto 5.6 % (0-4); Hematocrit 34.9 % (37.0-47.0); Imm Gran Abs Auto 0.03 X10*3/uL (0.00-0.03); Imm Gran Pct Auto 0.4 % (0.0-0.4); Lymphocytes Absolute Auto 2.4 X10*3/uL (1.2-4.9); Lymphocytes Percent Auto 31.8 % (20-40); Mean Corpuscular HGB Conc 31.5 g/dl (31.0-35.0); Mean Corpuscular Hemoglobin 27.8 pg (27.0-33.0); Mean Corpuscular Volume 88.4 fL (80.0-98.0); Mean Platelet Volume 12.1 fL (9.4-12.3); Monocytes Absolute Auto 0.7 X10*3/uL (0.1-1.2); Monocytes Percent Auto 9.6 % (2-11); Neutrophils Percent Auto 52.3 % (45-73); Platelet Count 236 X10*3/uL (160-400); Red Blood Count 3.95 X10*6/uL (4.20-5.50); Red Cell Distribution Width 13.4 % (11.0-16.0); White Blood Count 7.6 X10*3/uL (4.8-10.8)
[2023-10-01 14:28] LABS: Alanine Aminotransferase 22 U/L (0-31); Albumin Level 3.4 g/dL (3.5-5.0); Alkaline Phosphatase 40 U/L (39-117); Anion Gap 14 (12-20); Aspartate Amino Transferase 20 U/L (5-31); Bilirubin Direct < 0.2 mg/dL (0.0-0.5); Bilirubin Total 0.2 mg/dL (0.0-1.0); Blood Urea Nitrogen 16 mg/dL (9-16); Carbon Dioxide 30 mmol/L (22-29); Chloride 102 mmol/L (96-108); Estimated Glomerular Filt Rate 43; Glucose Random 299 mg/dL (60-115); Lipase 24 U/L (8-78); Potassium 3.7 mmol/L (3.3-5.1); Sodium 142 mmol/L (135-145); Total Protein 5.8 g/dL (6.5-8.0)
[2023-10-01 14:33] LABS: B Type Natriuretic Peptide 11 pg/mL (<100)
[2023-10-01 14:35] LABS: Troponin-I High Sensitivity < 2.7 ng/L (<3.5-17.0)
[2023-10-01 14:50] LABS: Influenza A PCR NEGATIVE (Negative); Influenza B PCR NEGATIVE (Negative); Resp Syncy Virus RNA Qual PCR NEGATIVE (Negative); SARS COV2 PCR INHOUSE NEGATIVE (Negative)
[2023-10-01 15:00] LABS: Appearance Urine Clear; Color Urine Yellow; Glucose Urine UA >=1000 mg/dL (Negative); Leukocyte Esterase Urine Negative (Negative); Nitrite Urine Negative (Negative); PH 5.5 (5.0-9.0); Specific Gravity - Urine 1.015 (1.005-1.025); UMIC TRIGGER UACC YES; Urine Blood Negative (Negative); Urine Ketones Negative (Negative); Urine Protein Negative (Neg-Trace)
[2023-10-01 15:31] LABS: Bacteria Urine 1+ (None Seen); Hyaline Casts Urine 0-2 /LPF (0-2); RBC Urine 0-2 /HPF (0-2); Squamous Epithelial Cell Urine 0-2 /HPF (0-2); WBC Urine 0-5 /HPF (0-5)
[2023-10-01 16:08] VITALS: BP 108/51; PULSE 81; RESP 17; TEMP 36.6; O2SAT 99
[2023-10-01] MEDS: Morphine Sulfate 2 MG/ML CARTRIDGE IM (16:08)
[2023-10-01 19:35] VITALS: BP 114/52; PULSE 79; RESP 17; TEMP 36.6; O2SAT 96
== END 2023-10-01 19:36 | disposition home or self-care (01) ==
PROVIDERS: Emergency Provider Emergency Medicine; PCP Internal Medicine
DX: R51.9 Headache, unspecified (principal); M54.50 Low back pain, unspecified; R06.02 Shortness of breath; R10.30 Lower abdominal pain, unspecified; R10.2 Pelvic and perineal pain; Z79.899 Other long term (current) drug therapy; Z11.52 Encounter for screening for COVID-19; Z20.822 Contact with and (suspected) exposure to COVID-19
CPT/HCPCS: 0241U; 74176; 80048; 80076; 81001; 81003; 83690; 83880; 84484; 85025; 96372; 99284; J2270

== ENCOUNTER 2023-10-07 13:27 | Outpatient (REF) | payer OTHER, SELFPAY ==
[2023-10-07 13:57] LABS: Appearance Urine Clear; Color Urine Yellow; Glucose Urine UA >=1000 mg/dL (Negative); Leukocyte Esterase Urine Negative (Negative); Nitrite Urine Negative (Negative); PH 6.5 (5.0-9.0); Specific Gravity - Urine 1.025 (1.005-1.025); UMIC TRIGGER UACC YES; Urine Blood Negative (Negative); Urine Ketones Negative (Negative); Urine Protein Negative (Neg-Trace)
[2023-10-07 14:29] LABS: Bacteria Urine 1+ (None Seen); Hyaline Casts Urine 0-2 /LPF (0-2); RBC Urine 0-2 /HPF (0-2); WBC Urine 0-5 /HPF (0-5)
== END 2023-10-07 13:28 | disposition home or self-care (01) ==
LOC: HO.HVNA 13:27
PROVIDERS: Visit Provider Internal Medicine
DX: R30.0 Dysuria (principal)
CPT/HCPCS: 81001; 81003; 87086

== ENCOUNTER 2023-10-14 14:16 | Outpatient (AMB) | payer OTHER, SELFPAY ==
--- NOTE | 2023-10-14 14:32 | MHC.OFFVIS ---
Intake Vital Signs 10/14/23 14:33 Height 5 ft Weight 220 lb BMI 43.0 BP 102/60 Blood Pressure Location Lt brachial Position Sitting Pulse 113 H Pulse Source Pulse Oximeter Pulse Oximetry (%) 95 Oxygen Delivery Method Nasal Cannula Oxygen Flow Rate 2 Intake Visit Reasons: COPD Intake Note: pt is here for follow up and states she is still having problems with her breathing, coughing jag last night almost called an ambulance. was in for septic UTI and prior to that it was copd exh. 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 Allergies adhesive tape [ADHESIVE TAPE] Allergy (Intermediate, Verified 10/14/23 16:25) RASH trimethobenzamide [From TIGAN] Allergy (Mild, Verified 10/14/23 16:25) NAUSEA environmental Allergy (Intermediate, Uncoded 10/14/23 16:25) Nasal congestion Medication List - Last Reconciled 10/14/23 by Hong Frederick MD albuterol sulfate 90 mcg/actuation (ProAir HFA) 2 puffs inhalation Q4H PRN albuterol sulfate 2.5 mg (3 mL) inhalation Q4-6H PRN amlodipine (Norvasc) 5 mg PO DAILY 30 days aspirin 81 mg PO DAILY atorvastatin 80 mg PO DAILY 90 days blood sugar diagnostic (FreeStyle Lite Strips) Use to check blood sugar twice daily and when having symptoms of hypo/hyperglycemia blood sugar diagnostic (OneTouch Ultra Test strips) Use to check blood sugar twice daily and when having symptoms of hypo/hyperglycemia blood-glucose meter ([employer] Ultra2 Meter) Use to check blood sugar twice daily and when having symptoms of hypo/hyperglycemia bupropion HCl 150 mg PO QPM cholecalciferol (vitamin D3) 25 mcg PO DAILY citalopram 10 mg PO DAILY cyclobenzaprine 10 mg PO TID PRN 7 days diaper,brief,adult,disposable Size medium pull up briefs diaper,brief,adult,disposable Use for stress incontinence gabapentin 900 mg PO BEDTIME gabapentin 300 mg PO QAM hydroxyzine pamoate 25 mg PO BID insulin aspart U-100 (Novolog FlexPen U-100 Insulin aspart) See Protocol sliding scale doses subcut TID insulin detemir U-100 (Levemir FlexPen) Take 20 units in am, 10 units at night subcutaneously; lancets once a day lancets ([employer] Delica Lancets) Use to check blood sugar twice daily and when having symptoms of hypo/hyperglycemia lisinopril 5 mg PO DAILY metronidazole 500 mg PO TID 10 days montelukast 10 mg PO DAILY multivitamin 1 tab PO DAILY nebulizers (AeroEclipse II Nebulizer) As directed oxygen-air delivery systems As directed pantoprazole 20 mg PO BEDTIME pen needle, diabetic (BD Ultra-Fine Mini Pen Needle) Use to administer insulin twice daily pen needle, diabetic 4x a day pramipexole 0.5 mg PO TID ropinirole 2 mg PO BID Shower Chair Shower chair with back and arm rests trazodone 200 mg PO BEDTIME walker Wheeled walker with seat and brakes Do you need a note to return to daycare/school/sports/work: No HPI COPD HPI Details DESMOND Abernathy 73 YEARS OLD FEMALE, COMES IN FOR FOLLOW-UP AFTER 3 MONTHS. LAST MONTH SHE WAS HOSPITALIZED AND TREATED FOR ACUTE PYELONEPHRITIS WITH SEPSIS. SHE HAD TO HAVE PROLONGED COURSE OF IV ANTIBIOTIC THROUGH A PICC LINE. SHE DEVELOPED C DIFFICILE. AND DOES A CAUSE SEQUENCE LOST ABOUT 15-20 LB OF WEIGHT . DURING THIS TIME SHE HAD SOMEWHAT INCREASED RESPIRATORY SYMPTOMS. NOW HER BREATHING IS BACK TO HER BASELINE BUT STILL GETS TIRED EASILY. SHE USES O2 2 L/MINUTE AROUND THE CLOCK. AT PRESENT SHE SEEMS TO BE AT BASELINE, DENIES COUGH OR EXPECTORATION. ALSO DENIES ANY WHEEZING. [facility] Medical History Dysuria Kidney stone on left side Diabetes 1.5, managed as type 1 Recurrent UTI COPD (chronic obstructive pulmonary disease) Respiratory failure with hypoxia Urinary tract infection Hypoxemia Morbid obesity CKD (chronic kidney disease) Anemia COPD exacerbation Allergic rhinitis ALDO (obstructive sleep apnea) Obesity (BMI 30-39.9) Constipation due to opioid therapy Osteoarthritis of left knee Hx SBO Hyperlipidemia CPAP (continuous positive airway pressure) dependence History of adrenal adenoma Osteochondroma of left femur Arthritis Diabetes Elevated cholesterol History of restless legs syndrome History of diverticulitis GERD (gastroesophageal reflux disease) Surgical History H/O excision of mass History of oophorectomy History of cholecystectomy History of appendectomy History of arthroscopy of left knee History of partial colectomy Hx of cataract extraction H/O exploratory laparotomy H/O colonoscopy History of surgery History of hysterectomy Family History Father HTN (hypertension) Diabetes mellitus Mother HTN (hypertension) Liver cancer Social History 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: Spouse 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 Other:: EX Housing: Apartment Are you a primary child caregiver to a significant other at home: No Do you presently have 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.) Unable to assess alcohol history related to: Unknown Alcohol intake: never Comment: PT SLEEPING Patient Tobacco Use Status: Never used Tobacco e-Cigarette/Vaping Use: Never Used Second Hand Smoke Exposure: No Advance Directives Date on File: 07/08/21 service: No Current occupational status: retired Cognitive needs: No Hearing needs: No Vision needs: No Female Reproductive History Menstrual Age of Menarche: 13 Review of Systems Const All systems reviewed & are unremarkable except as noted in HPI and below Eyes Reports no additional complaints ENT Reports nasal congestion (Intermittent) Card Denies chest pain, Denies irregular heart rhythm, Reports leg edema and Reports dyspnea Resp Reports as per HPI and Reports dyspnea GI Reports no additional complaints Reports no additional complaints Musc Reports abnormal gait (Impaired gait due to weakness of lower extremities, has to use a walker), Reports back pain and Reports limited range of motion Skin/Breast Reports system reviewed and no additional complaints, except as documented Neuro Reports abnormal gait (Impaired gait due to weakness of lower extremities, has to use a walker) Endo Reports other (Being treated for diabetes mellitus with diabetic neuropathy) Physical Exam Vital Signs: Last Vital Signs Pulse 113 H 10/14/23 14:33 BP 102/60 10/14/23 14:33 Pulse Ox 95 10/14/23 14:33 Oxygen Delivery Method Nasal Cannula 10/14/23 14:33 Oxygen Flow Rate 2 10/14/23 14:33 BMI result Body Mass Index 43.0 Const General: comfortable (But very weak), no acute distress, alert and awake Orientation/consciousness: patient oriented x3 HEENT Head: Yes normal to inspection General nose exam: No nasal polyps present, No nasal discharge present and Other nasal findings present (Mild nasal congestion) Face and sinus: Yes sinuses nontender Mouth: oropharynx normal Throat: Yes posterior oropharynx normal Eyes General: appearance normal, both eyes and all related structures Neck Neck: Yes normal visual inspection, Yes no lymphadenopathy, Yes trachea midline and Yes no JVD Thyroid: Thyroid normal Chest Chest palpation & inspection: normal inspection of the chest, normal palpation of entire chest wall and no tenderness Resp Other: Percussion note is resonant, breath sounds are very decreased over the basilar areas. No audible wheezes rhonchi or creps. Cardio Palpation: normal PMI Rate: regular rate Rhythm: regular rhythm Heart sounds: no gallops and no murmurs GI Palpation (GI): Soft to palpation, nontender, No hepatosplenomegaly present, no masses and Other GI palpation findings present (Abdomen is obese and protuberant) Auscultation: normal bowel sounds Back/Spine/Pelvis Thoracic/Lumbar Spine: thoracic and lumbar spine normal to inspection and thoraco-lumbar ROM limited Skin General skin exam: no rashes or lesions noted Neuro General: patient oriented x3 and no focal motor deficits Cranial nerves: Yes CN's II-XII intact bilaterally Extrem General: Yes normal to inspection, Yes no calf tenderness, Yes edema (ONLY MINIMAL AT THIS TIME.), Yes venous stasis dermatitis and Yes other (HAS THE A SMALL CONTUSION OF THE RIGHT FOREFOOT, WITH BLUISH DISCOLORATION ) Psych Appearance: grossly normal Speech and movement: Normal speech and movement present Assessment & Plan Assessment & Plan (1) COPD (chronic obstructive pulmonary disease): Comment: DESMOND HAS LONGSTANDING HISTORY OF COPD, CURRENTLY STABLE WITH THE USE OF MEDS. Code(s): J44.9 - Chronic obstructive pulmonary disease, unspecified Qualifiers: COPD type: emphysema Emphysema type: panlobular Qualified Code(s): J43.1 - Panlobular emphysema Plan: ADVISED TO CONTINUE USING BREO 200-251 INHALATION DAILY. IPRATROPIUM/ALBUTEROL SOLUTION IN THE NEBULIZER Q 6 HOURS P.R.N. AND MAY USE UP TO 4 TIMES A DAY. ALBUTEROL HFA Q.4-6 HOURS P.R.N. WHEN OUTDOORS (2) Respiratory failure with hypoxia: Comment: This patient definitely has nocturnal hypoxemia as well as Exercise induced Hypoxemia . Use of POC . not effective as she is mouth breather Code(s): J96.91 - Respiratory failure, unspecified with hypoxia Plan: So she is advised to use O2 3 L/minute , when using POC .Instructed Re: proper use of POC/ O2 conserving unit . AND USE O2 2 L/MINUTE AT NIGHT AND AT REST DURING THE DAYTIME. (3) Nocturnal hypoxemia: Comment: She does have nocturnal hypoxemia as part of her obstructive sleep apnea. Code(s): G47.34 - Idiopathic sleep related nonobstructive alveolar hypoventilation Plan: USE O2 2 L/MINUTE AT NIGHT (4) ALDO (obstructive sleep apnea): Comment: Patient does have obstructive sleep apnea as expected, Code(s): G47.33 - Obstructive sleep apnea (adult) (pediatric) Plan: She is NOT ABLE to tolerate the CPAP. Hence she uses oxygen 2 L/minute at night. (5) Restrictive airway disease: Comment: Patient has restrictive lung disorder related to obesity. Advised to do deep Breathing exercises TID She tends to get congested and has frequent bouts of cough. tx : Ipratropium-Albuterol updrafts Q 6 hours W/A and p.r.n. . Code(s): J98.4 - Other disorders of lung Plan: ABOVE Coding Level of Care Code Est Pt Level 4 (01617) Diagnoses Panlobular emphysema J43.1 COPD type: emphysema Emphysema type: panlobular Respiratory failure with hypoxia J96.91 Nocturnal hypoxemia G47.34 ALDO (obstructive sleep apnea) G47.33 Restrictive airway disease J98.4
[2023-10-14 14:33] VITALS: BP 102/60; PULSE 113; O2SAT 95; BMI 43.0
== END 2023-10-14 14:56 | disposition home or self-care (01) ==
PROVIDERS: PCP Internal Medicine; Visit Provider Internal Medicine
DX: J43.1 Panlobular emphysema (principal); J96.91 Respiratory failure, unspecified with hypoxia; G47.34 Idiopathic sleep related nonobstructive alveolar hypoventilation; G47.33 Obstructive sleep apnea (adult) (pediatric); J98.4 Other disorders of lung
CPT/HCPCS: 99214

== ENCOUNTER → 2023-10-14 14:16 | Outpatient (BNVA) | payer OTHER, SELFPAY | PROVIDERS: PCP Internal Medicine; Visit Provider Internal Medicine | DX: J43.1 Panlobular emphysema (principal); J96.91 Respiratory failure, unspecified with hypoxia; G47.34 Idiopathic sleep related nonobstructive alveolar hypoventilation; G47.33 Obstructive sleep apnea (adult) (pediatric); J98.4 Other disorders of lung | CPT/HCPCS: 99212 ==

== ENCOUNTER 2023-10-15 08:35 | Outpatient (AMB) | payer OTHER, SELFPAY ==
--- NOTE | 2023-10-15 08:50 | MHC.PC.OV ---
Intake Visit Reasons: 2 Wk F/u~ Allergies adhesive tape [ADHESIVE TAPE] Allergy (Intermediate, Verified 10/15/23 08:50) RASH trimethobenzamide [From TIGAN] Allergy (Mild, Verified 10/15/23 08:50) NAUSEA environmental Allergy (Intermediate, Uncoded 10/14/23 16:25) Nasal congestion Medication List - Last Reconciled 10/15/23 by Shelbi Perez MD albuterol sulfate 90 mcg/actuation (ProAir HFA) 2 puffs inhalation Q4H PRN albuterol sulfate 2.5 mg (3 mL) inhalation Q4-6H PRN amlodipine (Norvasc) 5 mg PO DAILY 30 days aspirin 81 mg PO DAILY atorvastatin 80 mg PO DAILY 90 days blood sugar diagnostic (FreeStyle Lite Strips) Use to check blood sugar twice daily and when having symptoms of hypo/hyperglycemia blood sugar diagnostic ([employer] Ultra Test strips) Use to check blood sugar twice daily and when having symptoms of hypo/hyperglycemia blood-glucose meter ([employer] Ultra2 Meter) Use to check blood sugar twice daily and when having symptoms of hypo/hyperglycemia bupropion HCl XL 150 mg PO QPM cholecalciferol (vitamin D3) 25 mcg PO DAILY citalopram 10 mg PO DAILY cyclobenzaprine 10 mg PO TID PRN 7 days diaper,brief,adult,disposable Size medium pull up briefs diaper,brief,adult,disposable Use for stress incontinence gabapentin 900 mg PO BEDTIME gabapentin 300 mg PO QAM hydroxyzine pamoate 25 mg PO BID insulin aspart U-100 (Novolog FlexPen U-100 Insulin aspart) See Protocol sliding scale doses subcut TID insulin detemir U-100 (Levemir FlexPen) Take 20 units in am, 10 units at night subcutaneously; lancets once a day lancets ([employer] Delica Lancets) Use to check blood sugar twice daily and when having symptoms of hypo/hyperglycemia lisinopril 5 mg PO DAILY metronidazole 500 mg PO TID 10 days montelukast 10 mg PO DAILY multivitamin 1 tab PO DAILY nebulizers (AeroEclipse II Nebulizer) As directed oxygen-air delivery systems As directed pantoprazole 20 mg PO BEDTIME pen needle, diabetic (BD Ultra-Fine Mini Pen Needle) Use to administer insulin twice daily pen needle, diabetic 4x a day pramipexole 0.5 mg PO TID ropinirole 2 mg PO BID Shower Chair Shower chair with back and arm rests trazodone 200 mg PO BEDTIME walker Wheeled walker with seat and brakes Tobacco use date assessed: 10/15/23 Fall risk assessment: No Falls in past year Last assessed Fall Risk: 10/15/23 Dental Screening Dental Screen Date: 10/15/23 Did you have a dental visit in the last 12 months?: No Did you have a dental problem in the last 6 months where you did not have access to dental care?: No Was dental information given to patient?: Patient has dentist HPI 2 Wk F/u~ HPI Details Patient is 73-year-old female this is a tele medicine conference to address her uncontrolled sugar Patient was instructed to take 20 units of Levemir at night and 10 in the morning She says that her sugars are still running in to 50s in 300s During the day she is using insulin sliding scale and is taking NovoLog up to 10 units 2 times a day I am adjusting her insulin to 30 units at night and 15 in the morning She may continue using the sliding scale and now lock We will book another telemedicine visit in a week to follow-up on that [facility] Medical History Dysuria Kidney stone on left side Diabetes 1.5, managed as type 1 Recurrent UTI COPD (chronic obstructive pulmonary disease) Respiratory failure with hypoxia Urinary tract infection Hypoxemia Morbid obesity CKD (chronic kidney disease) Anemia COPD exacerbation Allergic rhinitis ALDO (obstructive sleep apnea) Obesity (BMI 30-39.9) Constipation due to opioid therapy Osteoarthritis of left knee Hx SBO Hyperlipidemia CPAP (continuous positive airway pressure) dependence History of adrenal adenoma Osteochondroma of left femur Arthritis Diabetes Elevated cholesterol History of restless legs syndrome History of diverticulitis GERD (gastroesophageal reflux disease) Surgical History H/O excision of mass History of oophorectomy History of cholecystectomy History of appendectomy History of arthroscopy of left knee History of partial colectomy Hx of cataract extraction H/O exploratory laparotomy H/O colonoscopy History of surgery History of hysterectomy Family History Father HTN (hypertension) Diabetes mellitus Mother HTN (hypertension) Liver cancer Social History 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: Spouse 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 Other:: EX Housing: Apartment Are you a primary critical care registered nurse to a significant other at home: No Do you presently have visiting 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 1. Little interest or pleasure in doing things: not at all 2. Feeling down, depressed, or hopeless: several days 3. Trouble falling or staying asleep, or sleeping too much: not at all 4. Feeling tired or having little energy: not at all 5. Poor appetite or overeating: several days 6. Feeling bad about yourself - or that you are a failure or have let yourself or your family down: not at all 7. Trouble concentrating on things, such as reading the newspaper or watching television: not at all 8. Moving or speaking so slowly that other people could have noticed. Or the opposite - being so fidgety or restless that you have been moving around a lot more than usual: not at all 9. Thoughts that you would be better off or of hurting yourself in some way: not at all Total score: 2 Depression Screening Interpretation: Negative Depression Screening Done: Yes 58038 - PHQ-9 Billing: Yes Source: Developed by Drs. Ellis Child, Nimo Castillo, Miguel East and colleagues, with an educational miki from [employer]. Thrive Questionnaire Date Thrive assessed: 10/15/23 I am a: Patient What is your living situation today?: I have a steady place to live Within the past 12 months, did the food you bought not last and you didn't have the money to get more?: Never true Within the past 12 months, did you worry whether your food would run out before you got money to buy more?: Never true Do you have trouble paying for medicines?: No Do you have trouble getting transportation to medical appointments?: No Do you have trouble paying your heating and electricity bill?: No Do you have trouble taking care of your child, family member or friend?: No Do you have trouble with day-to-day activities such as bathing, preparing meals, shopping, managing finances, etc.?: No Are you currently unemployed and looking for a job?: No Are you interested in more education?: No Please select the resources that you would like help with: None Currently or been in a relationship where the following occur: no concerns reported THRIVE Score: 0 AUDIT C Alcohol Use Questionnaire (AUDIT-C) 1. How often do you have a drink containing alcohol?: Never 3. How often do you have six or more drinks on one occasion?: Never Total Score: 0 Score Reviewed/Action Taken: Yes RACHNA-7 AMB Questionnaire RACHNA-7 Date RACHNA - 7 assessed: 10/15/23 Feeling nervous, anxious, or on edge: 0 = Not at all Not being able to stop or control worryin = Not at all Worrying too much about different things: 0 = Not at all Trouble relaxin = Not at all Being so restless that it is hard to sit still: 0 = Not at all Becoming easily annoyed or irritable: 0 = Not at all Feeling afraid as if something awful might happen: 0 = Not at all Total RACHNA-7 score (0-4 normal; 5-9 mild; 10-14 moderate; 15-21 severe): 0 Source: Developed by Drs. Ellis Child, Nimo Castillo, Miguel East and colleagues, with an educational miki from [employer]. RACHNA-7 Assessment Billing RACHNA-7 Assessment Tool: RACHNA-7 Assessment 82602 Review of Systems Const Denies chills and Denies fever(s) ENT Denies epistaxis and Denies nasal discharge Card Denies chest pain Resp Denies chest congestion, Denies cough and Denies hemoptysis GI Denies diarrhea and Denies nausea Skin/Breast Denies rash Neuro Reports no additional complaints Psych Reports no additional complaints Endo Reports no additional complaints Physical exam (Primary Care) Tobacco/Smoking Status: Tobacco use Status Tobacco use date assessed 10/15/23 10/15/23 08:51 Patient Tobacco Use Status Never used Tobacco 10/15/23 08:51 e-Cigarette/Vaping Use Never Used 10/15/23 08:51 PHQ-9: PHQ-9 Score PHQ-9: Total score 2 10/15/23 08:53 Depression Screening Interpretation: Negative Thrive Assessment: Date of Thrive Assessment Date Thrive assessed 10/15/23 10/15/23 08:53 Currently or been in a relationship where the following occur: no concerns reported Const General: cooperative, comfortable and no acute distress Orientation/consciousness: patient oriented x3 HENMT Head: Yes normocephalic Eyes General: appearance normal, both eyes and all related structures Neck Neck: Yes supple Resp Effort & Inspection: normal respiratory effort, no cough and no stridor Cardio Rhythm: regular rhythm Heart sounds: S1 normal heart sound present and S2 normal heart sound present Skin General skin exam: turgor normal Neuro General: patient oriented x3, tone normal and moves all extremities Extrem Right lower extremity: no edema Left lower extremity: no edema Telehealth Telehealth Location of provider rendering services: practice address Location of patient: address on file Patient Identification confirmed using: Name, : Yes Telehealth method: voice only Patient verbally consented to treatment: Yes Patient verbally consented to billing insurance company: Yes Patient informed of any privacy concerns related to visit: Yes Minutes spent on Phone/Video with Pt.: 15 Assessment and Plan Assessment & Plan (1) [facility] (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 insulin: Code(s): Z79.4 - 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 (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 insulin (2) Uncontrolled diabetes mellitus: Qualifiers: Diabetes mellitus type: type 1 Glycemic state: with hyperglycemia Qualified Code(s): E10.65 - Type 1 diabetes mellitus with hyperglycemia Plan Patient is 73-year-old female this is a tele medicine conference to address her uncontrolled sugar Patient was instructed to take 20 units of Levemir at night and 10 in the morning She says that her sugars are still running in to 50s in 300s During the day she is using insulin sliding scale and is taking NovoLog up to 10 units 2 times a day I am adjusting her insulin to 30 units at night and 15 in the morning She may continue using the sliding scale and now lock We will book another telemedicine visit in a week to follow-up on that Medications: Changed From insulin detemir U-100 (Levemir FlexPen) Take 20 units in am, 10 units at night subcutaneously; 30 mL 0RF E10.69 - Type 1 diabetes mellitus with other specified complication, E66.01 - Morbid (severe) obesity due to excess calories To insulin detemir U-100 (Levemir FlexPen) (0.5 mL) 50 units subcutaneously ; 30 days 30 mL 0RF E10.69 - Type 1 diabetes mellitus with other specified complication, E66.01 - Morbid (severe) obesity due to excess calories Coding Level of Care Code Tele Est Pt Level 3 (51327) Diagnoses [facility] (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 insulin Z79.4 Uncontrolled type 1 diabetes mellitus with hyperglycemia E10.65 Diabetes mellitus type: type 1 Glycemic state: with hyperglycemia Additional Codes RACHNA-7 Assessment Billing - RACHNA-7 Assessment Tool: RACHNA-7 Assessment 37160 ([id number])
== END 2023-10-15 16:30 | disposition home or self-care (01) ==
LOC: HO.HMGC 08:35
PROVIDERS: PCP Internal Medicine; Visit Provider Internal Medicine
DX: E10.65 Type 1 diabetes mellitus with hyperglycemia (principal); Z79.4 Long term (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 insulin
CPT/HCPCS: 99442

== ENCOUNTER 2023-10-17 20:25 | Inpatient (IN) | payer OTHER, SELFPAY ==
--- NOTE | ~2023-10-17 | XR_ITS ---
EXAMINATION: XR CHEST CLINICAL INFORMATION: Chest pain. COMPARISON: 07/24/2023. TECHNIQUE: Frontal view of the chest was obtained. FINDINGS: The cardiomediastinal silhouette is stable. There is no focal lung consolidation or pleural effusion. The bony structures and soft tissues are unremarkable. XR/XR chest 1V IMPRESSION: No acute cardiopulmonary process.
--- NOTE | ~2023-10-17 | CT_ITS ---
EXAMINATION: CT ABDOMEN AND PELVIS WITHOUT CONTRAST CLINICAL INFORMATION: Right flank pain COMPARISON: 10/01/2023 TECHNIQUE: Multidetector volumetric imaging was performed from the superior aspect of the liver through the pubic symphysis. Sagittal and coronal reformatted images were obtained on the technologist's workstation. This CT examination was performed using dose optimization techniques as appropriate, variously including the following: *Automated exposure control *Adjustment of mA and/or kV according to patient size (this includes techniques or standardized protocols for targeted exams where dose is matched to indication/reason for exam; i.e. extremities or head) *Use of iterative reconstruction technique DLP: 962 mGy-cm FINDINGS: LUNG BASES: The visualized lung bases are unremarkable. LIVER, GALLBLADDER, AND BILIARY TREE: The liver is normal in size, shape, and attenuation. No focal hepatic lesion or biliary ductal dilatation is present. Not visualized PANCREAS: Unremarkable. SPLEEN: Unremarkable. ADRENAL GLANDS: Unremarkable. KIDNEYS AND URETERS: The kidneys are normal in size, shape, and attenuation. No hydronephrosis, hydroureter seen. No perinephric stranding. 2 nonobstructing calcified stones in the lower pole the left kidney are unchanged compared to the prior exam. BLADDER: Unremarkable. GASTROINTESTINAL TRACT: The small bowel are unremarkable. Postsurgical changes seen within the rectosigmoid colon. No evidence of obstruction or mass lesion. No wall thickening or inflammatory stranding. Stool seen diffusely throughout the colon. Appendix is not visualized. ABDOMINAL WALL: No significant hernia is appreciated. LYMPH NODES: Normal. VASCULAR: Unremarkable. PELVIC VISCERA: Status post hysterectomy. No adnexal mass lesions. OSSEOUS STRUCTURES: Degenerative disc disease and degenerative changes of the bilateral hip joints CT/CT abdomen pelvis wo IV con IMPRESSION: 1. No acute process. 2. Left nephrolithiasis. No hydronephrosis. 3. Postsurgical changes within the rectosigmoid colon. No evidence of obstruction or mass lesion.
[2023-10-17 20:37] VITALS: BP 130/63; BP 160/90; PULSE 103; PULSE 113; RESP 22; TEMP 36.9; O2SAT 93; O2SAT 97; BMI 43.1
[2023-10-17 20:40] VITALS: BP 130/63; PULSE 114; RESP 17; TEMP 36.4; O2SAT 96
--- NOTE | 2023-10-17 20:51 | ECG_ITS ---
Test Reason : DYSPNEA Blood Pressure : / mmHG Vent. Rate : 108 BPM Atrial Rate : 108 BPM P-R Int : 180 ms QRS Dur : 070 ms QT Int : 322 ms P-R-T Axes : 059 032 025 degrees QTc Int : 431 ms Sinus tachycardia Otherwise normal ECG When compared with ECG of 01-SEP-2023 13:31, No significant change was found Referred By: Chyna Coppola Electronically Signed By:RAMSEY ZARATE MD
--- NOTE | 2023-10-17 21:01 | ED.SOB ---
HPI - SOB/Dyspnea General Chief Complaint: Dyspnea Stated Complaint: SOB, congestion bilaterally, neb 2.5 albuterol Time Seen by Provider: 10/17/23 20:37 History of Present Illness HPI Narrative: Patient is a 73-year-old female with a history of COPD baseline is on 2 L of oxygen at home presents today with having coughing congestion upper respiratory symptoms. Positive history of diabetes. Positive coughing upper respiratory symptoms positive generalized malaise. Symptoms been ongoing for about a week. Also complaining of burning on urination question pain to the right flank area. Patient from home. She is vaccinated for COVID. No diarrhea. No fever no chills. Positive history of chronic kidney disease. Related Data Home Medications ?Medication ?Instructions ?Recorded ?Confirmed bupropion HCl 150 mg 24 hr tablet, 150 mg PO QPM 04/25/20 10/15/23 extended release oxygen-air delivery systems ##1 04/25/20 10/15/23 blood sugar diagnostic (FreeStyle 08/09/21 10/15/23 Lite Strips) aspirin 81 mg chewable tablet 81 mg PO DAILY 10/01/21 10/15/23 trazodone 100 mg tablet 200 mg PO BEDTIME 10/01/21 10/15/23 cholecalciferol (vitamin D3) 25 25 mcg PO DAILY 01/04/22 10/15/23 mcg (1,000 unit) capsule hydroxyzine pamoate 25 mg capsule 25 mg PO BID 08/13/22 10/15/23 citalopram 10 mg tablet 10 mg PO DAILY 06/06/23 10/15/23 multivitamin 1 tab PO DAILY 06/06/23 10/15/23 gabapentin 300 mg capsule 300 mg PO QAM 07/22/23 10/15/23 albuterol sulfate 90 mcg/actuation 2 puff inhalation Q4H PRN 09/02/23 10/15/23 aerosol inhaler (ProAir HFA) shortness of breath or wheezing gabapentin 300 mg capsule 900 mg PO BEDTIME 09/02/23 10/15/23 pantoprazole 20 mg tablet,delayed 20 mg PO BEDTIME 09/02/23 10/15/23 release pramipexole 0.5 mg tablet 0.5 mg PO TID 09/02/23 10/15/23 ropinirole 2 mg tablet 2 mg PO BID 09/02/23 10/15/23 Previous Rx's ?Medication ?Instructions ?Recorded nebulizers (AeroEclipse II #1 ea 02/05/21 Nebulizer) lancets 28 gauge #100 ea 06/24/21 diaper,brief,adult,disposable #64 ea 05/06/22 lancets 30 gauge (OneTouch Delica #100 ea 09/16/22 Lancets) blood-glucose meter (OneTouch #1 ea 09/19/22 Ultra2 Meter) pen needle, diabetic 31 gauge x #100 ea 10/14/2209/25 (BD Ultra-Fine Mini Pen Needle) pen needle, diabetic 31 gauge x #1,200 ea 02/18/2309/25 walker #1 ea 05/20/23 Shower Chair #1 ea 05/27/23 montelukast 10 mg tablet 10 mg PO DAILY #90 tabs 08/06/23 cyclobenzaprine 10 mg tablet 10 mg PO TID PRN muscle spasm 7 08/28/23 days #20 tabs diaper,brief,adult,disposable #200 ea 09/07/23 metronidazole 500 mg tablet 500 mg PO TID 10 days #30 tabs 09/23/23 blood sugar diagnostic (OneTouch #100 ea 09/30/23 Ultra Test strips) albuterol sulfate 2.5 mg/3 mL 2.5 mg (3 mL) inhalation Q4-6H PRN 10/08/23 (0.083 %) solution for nebulization shortness of breath or wheezing #75 mL amlodipine 5 mg tablet (Norvasc) 5 mg PO DAILY 30 days #90 tabs 10/09/23 atorvastatin 80 mg tablet 80 mg PO DAILY 90 days #90 tabs 10/09/23 insulin aspart U-100 100 unit/mL See Protocol subcut TID #30 mL 10/09/23 (3 mL) subcutaneous pen (Novolog FlexPen U-100 Insulin aspart) lisinopril 5 mg tablet 5 mg PO DAILY #90 tabs 10/09/23 insulin detemir U-100 100 unit/mL 50 unit (0.5 mL) subcut .COMPLEX 10/15/23 (3 mL) subcutaneous pen (Levemir 30 days #30 mL FlexPen) Allergies Allergy/AdvReac Type Severity Reaction Status Date / Time adhesive tape [ADHESIVE TAPE] Allergy Intermediate RASH Verified 10/17/23 20:40 trimethobenzamide Allergy Mild NAUSEA Verified 10/15/23 08:50 [From TIGAN] environmental Allergy Intermediate Nasal Uncoded 10/17/23 20:40 congestion Review of Systems Review of Systems: Positive shortness of breath Positive coughing upper respiratory symptoms, positive flank pain Yes all other systems are reviewed and are negative PMFSH Past Medical History Attestation statement: The following information was validated with the patient. Source: unable to obtain Medical History Dysuria Kidney stone on left side Diabetes 1.5, managed as type 1 Recurrent UTI COPD (chronic obstructive pulmonary disease) Respiratory failure with hypoxia Urinary tract infection Hypoxemia Morbid obesity CKD (chronic kidney disease) Anemia COPD exacerbation Allergic rhinitis ALDO (obstructive sleep apnea) Obesity (BMI 30-39.9) Constipation due to opioid therapy Osteoarthritis of left knee Hx SBO Hyperlipidemia CPAP (continuous positive airway pressure) dependence History of adrenal adenoma Osteochondroma of left femur Arthritis Diabetes Elevated cholesterol History of restless legs syndrome History of diverticulitis GERD (gastroesophageal reflux disease) Surgical History H/O excision of mass History of oophorectomy History of cholecystectomy History of appendectomy History of arthroscopy of left knee History of partial colectomy Hx of cataract extraction H/O exploratory laparotomy H/O colonoscopy History of surgery History of hysterectomy Family History Family History Father HTN (hypertension) Diabetes mellitus Mother HTN (hypertension) Liver cancer Social History Social History 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: Spouse 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 Other:: EX Housing: Apartment Are you a primary health care analyst to a significant other at home: No Do you presently have visiting nurse or other home services: 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.) Unable to assess alcohol history related to: Unknown Alcohol intake: never Comment: PT SLEEPING Patient Tobacco Use Status: Never used Tobacco Smoked in Last 30 Days: No e-Cigarette/Vaping Use: Never Used Second Hand Smoke Exposure: No Use of substances other than those prescribed or required for medical reasons: No Advance Directives: Yes Advance Directives Information Provided: No Advance Directives on File: No Advance Directives Date on File: 07/08/21 service: No Current occupational status: retired Cognitive needs: No Hearing needs: No Vision needs: No Physical Exam Vital Signs: Vital Signs: Last Vital Signs Temp 99.8 F 10/17/23 23:36 Pulse 109 H 10/17/23 23:36 Resp 16 10/17/23 23:36 BP 157/61 H 10/17/23 23:36 Pulse Ox 94 10/17/23 23:36 O2 Del Method Nasal Cannula 10/17/23 23:36 O2 Flow Rate 2 10/17/23 23:36 Oxygen Flow Rate 2 10/17/23 20:37 BMI result Body Mass Index 43.1 Appearance: Alert. Oriented X3. No acute distress. Eyes: Pupils equal, round and reactive to light. ENT: Pharynx normal. Neck: Normal inspection. Neck supple. No lymph nodes noted. No crepitus CVS: Normal heart rate and rhythm. Pulses normal. Normal S1 and S2 Respiratory: No respiratory distress. Diminished breath sounds bilaterally positive expiratory wheezing bilaterally Abdomen: Soft and nontender. No rigidity. No distention. good BS x4 Skin: Skin warm and dry. Normal skin color. Normal skin turgor. Extremities: No lower extremity edema. Neurovascular intact to all extremities. No Lacerations. No Rash Neuro: Oriented X 3. No motor deficit. No sensory deficit. Moving all extermities. No slurred speech Medications Administered Discontinued Medications Generic Name Dose Route Start Last Admin Trade Name Freq PRN Reason Stop Dose Admin Levalbuterol HCl 3.75 mg/ 0 mg 10/17/23 21:30 10/17/23 21:42 Ipratropium [place] 0.5 mg INHALE 10/17/23 21:31 1.25 dose ONCE ONE Administration Guaifenesin 600 mg 10/17/23 23:32 10/17/23 23:46 Guaifenesin La 600 Mg Tab.Er.12h PO 10/17/23 23:33 600 mg ONCE ONE Administration Sodium Chloride 500 mls @ 999 mls/hr 10/17/23 21:00 10/17/23 23:13 Ns IV 10/17/23 21:30 Infused .Q31M RANGEL Infusion Ceftriaxone Sodium 1 gm/ 50 mls @ 100 mls/hr 10/17/23 20:55 10/17/23 22:04 Sodium Chloride IV 10/17/23 21:24 Infused ONCE ONE Infusion Ertapenem 1 gm/ Sodium 50 mls @ 100 mls/hr 10/17/23 22:57 10/17/23 23:47 Chloride IV 10/17/23 23:26 Infused ONCE ONE Infusion Methylprednisolone Sodium Succinate 125 mg 10/17/23 20:52 10/17/23 21:35 Methylprednisolone Sod Succ 125 Mg/2 Ml Vial IVPUSH 10/17/23 20:53 125 mg ONCE ONE Administration Medical Decision Making Medical Decision Making [facility] Narrative: My interpretation of patient's EKG showed a sinus rhythm heart rate is 100 [place] QRS QTC within normal limits there has no acute ST segment elevation noted. Patient had bilateral wheezing shortness of breath also complaining of flank pain. Her urine was grossly infected. Cultures obtained antibiotic was started patient had strep viridans in the past. Started patient on a dose of ertapenem. My interpretation patient's chest x-ray showed no focal infiltrate. CT scan of the abdomen pelvis was ordered. IV fluids given neb treatment given steroid given patient's troponin is less than 2.7 unlikely ACS patient's VBG showed no CO2 retention BNP is less than 10 no evidence for congestive heart failure. Flu COVID RSV were all negative. Will admit patient for further evaluation Differential Diagnosis Differential Diagnoses: The differential diagnosis associated with the presentation includes COPD, congestive heart failure, UTI Admission/Observation Consideration of admission/observation: Escalation of care including admission/observation considered Patient require admission Consult Healthcare Provider Management of the patient was discussed with: Hospitalist Lab Data [facility] Lab Attestation statement: I reviewed the patient's lab results. 10/17/23 21:10 10/17/23 21:10 Labs: Lab Results 10/17/23 10/17/23 10/17/23 Range/Units 21:10 21:34 21:49 WBC 10.2 (4.8-10.8) X10*3/uL RBC 4.14 L (4.20-5.50) X10*6/uL Hgb 11.6 L (12.0-16.0) g/dl Hct 36.4 L (37.0-47.0) % MCV 87.9 (80.0-98.0) fL MCH 28.0 (27.0-33.0) pg MCHC 31.9 (31.0-35.0) g/dl RDW 13.6 (11.0-16.0) % Plt Count 197 (160-400) X10*3/uL MPV 12.5 H (9.4-12.3) fL Immature Gran % (Auto) 0.4 (0.0-0.4) % Neut % (Auto) 68.9 (45-73) % Lymph % (Auto) 20.1 (20-40) % [place] % (Auto) 8.3 (2-11) % Eos % (Auto) 2.0 (0-4) % Baso % (Auto) 0.3 (0-2) % Lymph # (Auto) 2.1 (1.2-4.9) X10*3/uL [place] # (Auto) 0.9 (0.1-1.2) X10*3/uL Eos # (Auto) 0.2 (0.0-0.4) X10*3/uL Baso # (Auto) 0.0 (0.0-0.2) X10*3/uL Abs Immat Gran (auto) 0.04 H (0.00-0.03) X10*3/uL Absolute Neuts (auto) 7.0 (2.0-8.3) x10*3/uL Absolute Nucleated RBC 0.000 (0.0-0.012) X10*3/uL Nucleated RBC % (auto) 0.0 (0.0-0.2) /100WBC VBG pH 7.50 H (7.32-7.43) VBG pCO2 39 mmHg VBG pO2 68 mmHg VBG HCO3 31 H (22-26) mmol/L VBG O2 Saturation 94.0 % VBG Base Excess 7.6 mmol/L Sodium 142 (135-145) mmol/L Potassium 4.8 D (3.3-5.1) mmol/L Chloride 103 (96-108) mmol/L Carbon Dioxide 28 (22-29) mmol/L Anion Gap 16 (12-20) BUN 19 H (9-16) mg/dL Creatinine 1.44 H (0.5-1.4) mg/dL Estim Creat Clear Calc 37.0 Estimated GFR 36 Random Glucose 235 H (60-115) mg/dL Lactic Acid 1.4 (0.5-2.0) mmol/L Calcium 9.0 (8.4-10.2) mg/dL Total Bilirubin 0.2 (0.0-1.0) mg/dL Direct Bilirubin < 0.2 (0.0-0.5) mg/dL AST 25 (5-31) U/L ALT 17 (0-31) U/L Alkaline Phosphatase 40 (39-117) U/L Troponin I High Sens < 2.7 (<3.5-17.0) ng/L B-Natriuretic Peptide < 10 (<100) pg/mL Total Protein 6.9 (6.5-8.0) g/dL Albumin 3.6 (3.5-5.0) g/dL Urine Color Urine Appearance Urine pH (5.0-9.0) Ur Specific [place] (1.005-1.025) Urine Protein (Neg-Trace) mg/dL Urine Glucose (UA) (Negative) mg/dL Urine Ketones (Negative) mg/dL Urine Blood (Negative) Urine Nitrite (Negative) Ur Leukocyte Esterase (Negative) Urine RBC (0-2) /HPF Urine WBC (0-5) /HPF Ur Squamous Epith Cells (0-2) /HPF Urine Bacteria (None Seen) Hyaline Casts (0-2) /LPF Influenza Type A (PCR) NEGATIVE (Negative) Influenza Type B (PCR) NEGATIVE (Negative) RSV RNA Qual (PCR) NEGATIVE (Negative) SARS-CoV-2 RNA (RT-PCR) NEGATIVE (Negative) 10/17/23 Range/Units 22:10 WBC (4.8-10.8) X10*3/uL RBC (4.20-5.50) X10*6/uL Hgb (12.0-16.0) g/dl Hct (37.0-47.0) % MCV (80.0-98.0) fL MCH (27.0-33.0) pg MCHC (31.0-35.0) g/dl RDW (11.0-16.0) % Plt Count (160-400) X10*3/uL MPV (9.4-12.3) fL Immature Gran % (Auto) (0.0-0.4) % Neut % (Auto) (45-73) % Lymph % (Auto) (20-40) % [place]y % (Auto) (2-11) % Eos % (Auto) (0-4) % Baso % (Auto) (0-2) % Lymph # (Auto) (1.2-4.9) X10*3/uL [place] # (Auto) (0.1-1.2) X10*3/uL Eos # (Auto) (0.0-0.4) X10*3/uL Baso # (Auto) (0.0-0.2) X10*3/uL Abs Immat Gran (auto) (0.00-0.03) X10*3/uL Absolute Neuts (auto) (2.0-8.3) x10*3/uL Absolute Nucleated RBC (0.0-0.012) X10*3/uL Nucleated RBC % (auto) (0.0-0.2) /100WBC VBG pH (7.32-7.43) VBG pCO2 mmHg VBG pO2 mmHg VBG HCO3 (22-26) mmol/L VBG O2 Saturation % VBG Base Excess mmol/L Sodium (135-145) mmol/L Potassium (3.3-5.1) mmol/L Chloride (96-108) mmol/L Carbon Dioxide (22-29) mmol/L Anion Gap (12-20) BUN (9-16) mg/dL Creatinine (0.5-1.4) mg/dL Estim Creat Clear Calc Estimated GFR Random Glucose (60-115) mg/dL Lactic Acid (0.5-2.0) mmol/L Calcium (8.4-10.2) mg/dL Total Bilirubin (0.0-1.0) mg/dL Direct Bilirubin (0.0-0.5) mg/dL AST (5-31) U/L ALT (0-31) U/L Alkaline Phosphatase (39-117) U/L Troponin I High Sens (<3.5-17.0) ng/L B-Natriuretic Peptide (<100) pg/mL Total Protein (6.5-8.0) g/dL Albumin (3.5-5.0) g/dL Urine Color Yellow Urine Appearance Cloudy Urine pH 6.0 (5.0-9.0) Ur Specific [place] 1.020 (1.005-1.025) Urine Protein Negative (Neg-Trace) mg/dL Urine Glucose (UA) Negative (Negative) mg/dL Urine Ketones Negative (Negative) mg/dL Urine Blood Negative (Negative) Urine Nitrite Positive H (Negative) Ur Leukocyte Esterase Small (1+) H (Negative) Urine RBC 3-5 H (0-2) /HPF Urine WBC >50 H (0-5) /HPF Ur Squamous Epith Cells 6-10 (0-2) /HPF Urine Bacteria 4+ (None Seen) Hyaline Casts 0-2 (0-2) /LPF Influenza Type A (PCR) (Negative) Influenza Type B (PCR) (Negative) RSV RNA Qual (PCR) (Negative) SARS-CoV-2 RNA (RT-PCR) (Negative) ABG Data Attestation ABG: I personally reviewed and interpreted this ABG as follows: Interpretation: Venous blood gas showed no CO2 retention normal pH Independent Interpretation I performed an independent interpretation of an: EKG (My interpretation patient's EKG as above) and Plain X-Ray (Chest x-ray showed no focal infiltrate) Radiology Impression Discussion of test interpretation with radiology: I have reviewed the radiologist's reading. External Record Review External record reviewed: Inpatient record Chronic Conditions Patient?s care impacted by: Diabetes COPD on 2 L of oxygen Social Determinants Patient?s care significantly limited by Social Determinants of Health including: Problems related to primary support group Critical Care Time Critical Care Time Critical Care Time: Yes Total Critical Care Time: 40 Attestation: I have personally provided 40 minutes of critical care time exclusive of time spent on separately billable procedures. ?Time includes review of lab data, radiology results, discussion with consultants, and monitoring for potential decompensation. ?Interventions were performed as documented above Discharge Plan Discharge Clinical Impression: COPD (chronic obstructive pulmonary disease), Pneumonia Patient Disposition: Admitted As Inpatient Prescriptions: No Action (DME) lancets 28 gauge misc See Rx Instructions topical TID Qty: 100 3RF Rx Instructions: once a day (DME) FreeStyle Lite Strips Strip See Rx Instructions .Route Rx Instructions: Use to check blood sugar twice daily and when having symptoms of hypo/hyperglycemia (DME) diaper,brief,adult,disposable Misc See Rx Instructions .Route Qty: 64 5RF Rx Instructions: Use for stress incontinence (DME) lancets [OneTouch Delica Lancets] 30 gauge misc See Rx Instructions .Route Qty: 100 2RF Rx Instructions: Use to check blood sugar twice daily and when having symptoms of hypo/hyperglycemia (DME) blood-glucose meter [OneTouch Ultra2 Meter] Misc See Rx Instructions .Route Qty: 1 0RF Rx Instructions: Use to check blood sugar twice daily and when having symptoms of hypo/hyperglycemia (DME) pen needle, diabetic [BD Ultra-Fine Mini Pen Needle] 31 gauge x 3/16 needle See Rx Instructions .Route Qty: 100 2RF Rx Instructions: Use to administer insulin twice daily (DME) walker Misc See Rx Instructions .Route Qty: 1 0RF Rx Instructions: Wheeled walker with seat and brakes (DME) Shower Chair Misc See Rx Instructions .Route Qty: 1 0RF Rx Instructions: Shower chair with back and arm rests montelukast 10 mg tablet 10 mg PO DAILY Qty: 90 1RF (DME) diaper,brief,adult,disposable Misc See Rx Instructions .Route Qty: 200 5RF Rx Instructions: Size medium pull up briefs metronidazole 500 mg tablet 500 mg PO TID 10 Days Qty: 30 0RF (DME) OneTouch Ultra Test Strip See Rx Instructions .Route Qty: 100 2RF Rx Instructions: Use to check blood sugar twice daily and when having symptoms of hypo/hyperglycemia albuterol sulfate 2.5 mg /3 mL (0.083 %) solution for nebulization 2.5 mg inhalation Q4-6H PRN (Reason: shortness of breath or wheezing) Qty: 75 0RF amlodipine [Norvasc] 5 mg tablet 5 mg PO DAILY 30 Days Qty: 90 0RF lisinopril 5 mg tablet 5 mg PO DAILY Qty: 90 0RF insulin aspart U-100 [Novolog FlexPen U-100 Insulin] 100 unit/mL (3 mL) insulin pen See Protocol subcut TID Qty: 30 0RF Protocol: Insulin Correction Scale Less than or equal to 110 ---- Give (units): 0 111 to 150 Give (units): 0 151 to 200 Give (units): 2 201 to 250 Give (units): 4 251 to 300 Give (units): 6 301 to 350 Give (units): 8 Greater than 350 Give (units): 10 Call MD if Blood Glucose > : 350 Rx Instructions: Up to 10 units before each meal according to sliding scale atorvastatin 80 mg tablet 80 mg PO DAILY 90 Days Qty: 90 0RF (DME) AeroEclipse II Nebulizer [facility] [place] See Rx Instructions .ROUTE .MEDSUPPLY Qty: 1 0RF Rx Instructions: As directed hydroxyzine pamoate 25 mg capsule 25 mg PO BID trazodone 100 mg tablet 200 mg PO BEDTIME aspirin 81 mg Tablet,Chewable 81 mg PO DAILY cholecalciferol (vitamin D3) 25 mcg (1,000 unit) Capsule 25 mcg PO DAILY multivitamin Tablet 1 tab PO DAILY citalopram 10 mg tablet 10 mg PO DAILY gabapentin 300 mg capsule 300 mg PO QAM albuterol sulfate [ProAir HFA] 90 mcg/actuation HFA aerosol inhaler 2 puff inhalation Q4H PRN (Reason: shortness of breath or wheezing) gabapentin 300 mg Capsule 900 mg PO BEDTIME pantoprazole 20 mg tablet,delayed release (DR/EC) 20 mg PO BEDTIME pramipexole 0.5 mg tablet 0.5 mg PO TID ropinirole 2 mg tablet 2 mg PO BID cyclobenzaprine 10 mg tablet 10 mg PO TID PRN (Reason: muscle spasm) 7 Days Qty: 20 0RF Levemir FlexPen 100 unit/mL (3 mL) insulin pen 50 unit subcut .COMPLEX 30 Days Qty: 30 0RF Rx Instructions: 50 units subcutaneously ; (DME) pen needle, diabetic 31 gauge x 3/16 needle See Rx Instructions subcut TID Qty: 1200 1RF Rx Instructions: 4x a day bupropion HCl 150 mg tablet extended release 24 hr 150 mg PO QPM (DME) oxygen-air delivery systems Device See Rx Instructions .ROUTE .MEDSUPPLY Qty: 1 Rx Instructions: As directed Print Language: Kazakh
[2023-10-17] MEDS: cefTRIAXone sodium 1 GM in 0.9 % Sodium Chloride 50 ML IV (21:35)
[2023-10-17] MEDS: methylPREDNISolone Sod Succ 125 MG/2 ML VIAL IVPUSH (21:35)
[2023-10-17] MEDS: 0.9 % Sodium Chloride 500 ML 999 ML IV (21:36)
[2023-10-17 21:37] LABS: MANUAL DIFF FLAG NO
[2023-10-17 21:40] LABS: Venous Blood Gas Refer to POC result
[2023-10-17 21:41] LABS: Basophils Percent Auto 0.3 % (0-2); Eosinophils Absolute Auto 0.2 X10*3/uL (0.0-0.4); Hematocrit 36.4 % (37.0-47.0); Hemoglobin 11.6 g/dl (12.0-16.0); Imm Gran Abs Auto 0.04 X10*3/uL (0.00-0.03); Imm Gran Pct Auto 0.4 % (0.0-0.4); Lymphocytes Absolute Auto 2.1 X10*3/uL (1.2-4.9); Lymphocytes Percent Auto 20.1 % (20-40); Mean Corpuscular HGB Conc 31.9 g/dl (31.0-35.0); Mean Corpuscular Volume 87.9 fL (80.0-98.0); Mean Platelet Volume 12.5 fL (9.4-12.3); Monocytes Absolute Auto 0.9 X10*3/uL (0.1-1.2); Monocytes Percent Auto 8.3 % (2-11); Neutrophils Percent Auto 68.9 % (45-73); Platelet Count 197 X10*3/uL (160-400); Red Blood Count 4.14 X10*6/uL (4.20-5.50); Red Cell Distribution Width 13.6 % (11.0-16.0); White Blood Count 10.2 X10*3/uL (4.8-10.8)
[2023-10-17 21:42] VITALS: PULSE 108; RESP 22; O2SAT 92
[2023-10-17 21:42] LABS: VBG Base Excess 7.6 mmol/L; VBG HCO3 31 mmol/L (22-26); VBG pCO2 39 mmHg; VBG pO2 68 mmHg
[2023-10-17] MEDS: levalbuterol HCL 3.75 MG, Ipratropium Bromide 0.5 MG INHALE (21:42)
[2023-10-17 21:49] LABS: Lactic Acid 1.4 mmol/L (0.5-2.0)
[2023-10-17 21:59] LABS: Alanine Aminotransferase 17 U/L (0-31); Albumin Level 3.6 g/dL (3.5-5.0); Alkaline Phosphatase 40 U/L (39-117); Anion Gap 16 (12-20); Aspartate Amino Transferase 25 U/L (5-31); Bilirubin Direct < 0.2 mg/dL (0.0-0.5); Bilirubin Total 0.2 mg/dL (0.0-1.0); Blood Urea Nitrogen 19 mg/dL (9-16); Carbon Dioxide 28 mmol/L (22-29); Chloride 103 mmol/L (96-108); Estimated Glomerular Filt Rate 36; Glucose Random 235 mg/dL (60-115); Potassium 4.8 mmol/L (3.3-5.1); Sodium 142 mmol/L (135-145); Total Protein 6.9 g/dL (6.5-8.0)
[2023-10-17 22:05] LABS: Troponin-I High Sensitivity < 2.7 ng/L (<3.5-17.0)
[2023-10-17 22:10] LABS: B Type Natriuretic Peptide < 10 pg/mL (<100)
[2023-10-17 22:17] LABS: Appearance Urine Cloudy; Color Urine Yellow; Glucose Urine UA Negative (Negative); Leukocyte Esterase Urine Small (1+) (Negative); Nitrite Urine Positive (Negative); UMIC TRIGGER UACC YES; Urine Blood Negative (Negative); Urine Ketones Negative (Negative); Urine Protein Negative (Neg-Trace)
[2023-10-17 22:26] LABS: Bacteria Urine 4+ (None Seen); Hyaline Casts Urine 0-2 /LPF (0-2); UACC Culture Trigger YES; WBC Urine >50 /HPF (0-5)
[2023-10-17 22:35] LABS: Influenza A PCR NEGATIVE (Negative); Influenza B PCR NEGATIVE (Negative); Resp Syncy Virus RNA Qual PCR NEGATIVE (Negative); SARS COV2 PCR INHOUSE NEGATIVE (Negative)
[2023-10-17 22:43] VITALS: BP 131/60; PULSE 109; RESP 17; TEMP 36.6; O2SAT 96
[2023-10-17] MEDS: Ertapenem Sodium 1 GM in 0.9 % Sodium Chloride 50 ML IV (23:11)
[2023-10-17 23:36] VITALS: BP 157/61; PULSE 109; RESP 16; TEMP 37.7; O2SAT 94
[2023-10-17] MEDS: guaiFENesin LA 600 MG TAB.ER.12H PO (23:46)
[2023-10-18] VITALS (9 sets, daily range): BP systolic 111–127; BP diastolic 45–60; PULSE 98–115; RESP 16–24; TEMP 37.4; O2SAT 89–98
[2023-10-18] MEDS: Albuterol/Iprat 2.5/0.5MG 3 ML AMPUL.NEB INHALE ×4 (01:04→19:38)
[2023-10-18 02:09] LABS: Glucose, Whole Blood 262 mg/dL (60-115)
[2023-10-18] MEDS: HYDROmorphone HCl 0.5 MG/0.5 ML SYRINGE IVPUSH (02:09)
[2023-10-18] MEDS: Insulin Lispro 100 UNIT/ML 3 ML VIAL SUBCUT ×6 (02:09→21:13)
[2023-10-18] MEDS: Insulin Glargine,Hum.rec.anlog 100 UNIT/ML 10 ML VIAL 15 UNIT SUBCUT (02:10)
[2023-10-18] MEDS: Albuterol Sulfate 90 MCG 8 GM INHALER 4 PUFF INHALE ×2 (03:57→07:25)
[2023-10-18] MEDS: methylPREDNISolone Sod Succ 40 MG/ML VIAL IVPUSH ×3 (05:54→21:12)
[2023-10-18] MEDS: Acetaminophen 325 MG TABLET 975 MG PO (05:55)
[2023-10-18 07:08] LABS: Basophils Percent Auto 0.2 % (0-2); Hematocrit 37.1 % (37.0-47.0); Hemoglobin 11.7 g/dl (12.0-16.0); Imm Gran Abs Auto 0.07 X10*3/uL (0.00-0.03); Imm Gran Pct Auto 0.7 % (0.0-0.4); Lymphocytes Absolute Auto 0.8 X10*3/uL (1.2-4.9); Lymphocytes Percent Auto 7.7 % (20-40); MANUAL DIFF FLAG SCAN; Mean Corpuscular HGB Conc 31.5 g/dl (31.0-35.0); Mean Corpuscular Volume 88.8 fL (80.0-98.0); Mean Platelet Volume 12.2 fL (9.4-12.3); Monocytes Absolute Auto 0.1 X10*3/uL (0.1-1.2); Monocytes Percent Auto 1.2 % (2-11); Neutrophils Absolute Auto 8.9 x10*3/uL (2.0-8.3); Neutrophils Percent Auto 90.2 % (45-73); Platelet Count 193 X10*3/uL (160-400); Red Blood Count 4.18 X10*6/uL (4.20-5.50); Red Cell Distribution Width 13.6 % (11.0-16.0); SCAN SMEAR FLAG 1; White Blood Count 9.9 X10*3/uL (4.8-10.8)
[2023-10-18 07:15] LABS: Glucose, Whole Blood 289 mg/dL (60-115)
[2023-10-18] MEDS: Heparin Sodium,Porcine 5,000 UNIT/ML VIAL 5000 UNIT SUBCUT ×2 (07:25→17:50)
[2023-10-18] MEDS: 0.9 % Sodium Chloride Flush 3 ML SYRINGE IVFLUSH (07:26)
--- NOTE | 2023-10-18 07:27 | P.HPHOSP_ITS ---
History of Present Illness Date of Service: 10/18/23 Attending physician on admission: Arabella Abdul Chief Complaint: Shortness on breath Mine Peacock is 73 years old woman with past medical history significant for COPD -on home O2 2 L/Min, CKD, chronic anemia, morbid obesity, hyperlipidemia, obstructive sleep apnea, recurrent UTIs and type 2 diabetes mellitus presents to the emergency department complaining of worsening shortness of breath productive cough over the last several days. She also complained of right flank pain and discomfort with urination. Denies blood in urine. She denied any headache, sore throat, nausea, vomiting or diarrhea. Denies fever or chills. She denied alcohol abuse, tobacco smoking or illicit drug use. In the ED, she was found to have tachycardia and tachypnea. She is currently requiring 2 liters/minute supplemental oxygen which is her baseline. Blood workup showed no leukocytosis. Hemoglobin is at baseline. Platelets are normal. Creatinine is 1.44 (1.2). There are no significant electrolyte imbalances. LFTs are normal. BNP and troponin are negative. Urinalysis consistent with urinary tract infection. Abdomen pelvis CT scan showed no acute process. CXR is negative. ED tx: Acetaminophen 650 mg p.o., NS 500 mg IV, Solu-Medrol 125 mg IV, ceftriaxone 1 g IV, ertapenem 1 g IV, Mucinex 600 mg p.o. Review of Systems 2 Review of Systems: All 12 systems were reviewed and normal except as noted in HPI. [facility] Medical History Dysuria Kidney stone on left side Diabetes 1.5, managed as type 1 Recurrent UTI COPD (chronic obstructive pulmonary disease) Respiratory failure with hypoxia Urinary tract infection Hypoxemia Morbid obesity CKD (chronic kidney disease) Anemia COPD exacerbation Allergic rhinitis ALDO (obstructive sleep apnea) Obesity (BMI 30-39.9) Constipation due to opioid therapy Osteoarthritis of left knee Hx SBO Hyperlipidemia CPAP (continuous positive airway pressure) dependence History of adrenal adenoma Osteochondroma of left femur Arthritis Diabetes Elevated cholesterol History of restless legs syndrome History of diverticulitis GERD (gastroesophageal reflux disease) Family History Father HTN (hypertension) Diabetes mellitus Mother HTN (hypertension) Liver cancer Surgical History H/O excision of mass History of oophorectomy History of cholecystectomy History of appendectomy History of arthroscopy of left knee History of partial colectomy Hx of cataract extraction H/O exploratory laparotomy H/O colonoscopy History of surgery History of hysterectomy Social History 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: Spouse 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 Other:: EX Housing: Apartment Are you a primary career development manager to a significant other at home: No Do you presently have visiting nurse or other home services: 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.) Unable to assess alcohol history related to: Unknown Alcohol intake: never Comment: PT SLEEPING Patient Tobacco Use Status: Never used Tobacco Smoked in Last 30 Days: No e-Cigarette/Vaping Use: Never Used Second Hand Smoke Exposure: No Use of substances other than those prescribed or required for medical reasons: No Advance Directives: Yes Advance Directives Information Provided: No Advance Directives on File: No Advance Directives Date on File: 07/08/21 Nutrition Risks: No Nutritional Risk service: No Current occupational status: retired Cognitive needs: No Hearing needs: No Vision needs: No Meds Allergies Allergy/AdvReac Type Severity Reaction Status Date / Time adhesive tape [ADHESIVE TAPE] Allergy Intermediate RASH Verified 10/17/23 20:40 trimethobenzamide Allergy Mild NAUSEA Verified 10/15/23 08:50 [From TIGAN] environmental Allergy Intermediate Nasal Uncoded 10/17/23 20:40 congestion Active Medications: Current Medications Acetaminophen (Acetaminophen 325 Mg Tablet) 975 mg PO Q6H PRN PRN Reason: Pain, Mild (Pain Scale 1-3) Last Admin: 10/18/23 05:55 Dose: 975 mg Albuterol Sulfate (Albuterol Sulfate 90 Mcg 8 Gm Inhaler) 4 puff INHALE RQ4H WHILE AWAKE [facility] Last Admin: 10/18/23 07:25 Dose: 4 puff Glucose (Glucose Gel 15 Gm Gel..Gram.) 15 gm PO Q15M PRN; Protocol PRN Reason: per Hypoglycemia Standing Ord. Heparin Sodium (Porcine) (Heparin Sodium,Porcine 5,000 Unit/Ml Vial) 5,000 unit SUBCUT Q8H [facility]ANGEL Last Admin: 10/18/23 07:25 Dose: 5,000 unit Dextrose (D10) 250 mls @ 750 mls/hr IV Q15M PRN; Protocol PRN Reason: per Hypoglycemia Standing Ord. Insulin Human Lispro (Insulin Lispro 100 Unit/Ml 3 Ml Vial) 0 unit SUBCUT QIDACHS [facility]; Protocol Last Admin: 10/18/23 07:25 Dose: 6 unit Methylprednisolone Sodium Succinate (Methylprednisolone Sod Succ 40 Mg/Ml Vial) 40 mg IVPUSH Q6H [facility] Last Admin: 10/18/23 05:54 Dose: 40 mg Sodium Chloride (0.9 % Sodium Chloride Flush 3 Ml Syringe) 3 ml IVFLUSH QSHIFT [facility] Home Medications ?Medication ?Instructions ?Recorded ?Confirmed ?Last Taken ?Type bupropion HCl 150 mg 24 hr tablet, 150 mg PO QPM 04/25/20 10/15/23 09/01/23 History extended release oxygen-air delivery systems ##1 04/25/20 10/15/23 11/22/21 History blood sugar diagnostic (FreeStyle 08/09/21 10/15/23 11/22/21 History Lite Strips) aspirin 81 mg chewable tablet 81 mg PO DAILY 10/01/21 10/15/23 09/01/23 History trazodone 100 mg tablet 200 mg PO BEDTIME 10/01/21 10/15/23 08/31/23 History cholecalciferol (vitamin D3) 25 25 mcg PO DAILY 01/04/22 10/15/23 09/01/23 History mcg (1,000 unit) capsule hydroxyzine pamoate 25 mg capsule 25 mg PO BID 08/13/22 10/15/23 09/01/23 History citalopram 10 mg tablet 10 mg PO DAILY 06/06/23 10/15/23 09/01/23 History multivitamin 1 tab PO DAILY 06/06/23 10/15/23 09/01/23 History gabapentin 300 mg capsule 300 mg PO QAM 07/22/23 10/15/23 09/01/23 History albuterol sulfate 90 mcg/actuation 2 puff inhalation Q4H PRN 09/02/23 10/15/23 Unknown History aerosol inhaler (ProAir HFA) shortness of breath or wheezing gabapentin 300 mg capsule 900 mg PO BEDTIME 09/02/23 10/15/23 09/01/23 History pantoprazole 20 mg tablet,delayed 20 mg PO BEDTIME 09/02/23 10/15/23 09/01/23 History release pramipexole 0.5 mg tablet 0.5 mg PO TID 09/02/23 10/15/23 09/01/23 History ropinirole 2 mg tablet 2 mg PO BID 09/02/23 10/15/23 09/01/23 History insulin detemir U-100 100 unit/mL 50 unit subcut BEDTIME 10/18/23 Unknown History (3 mL) subcutaneous pen (Levemir FlexPen) Physical Exam 2 Vital Signs and Narrative: Vital Signs: Last Vital Signs Temp 99.4 F 10/18/23 01:53 Pulse 107 H 10/18/23 06:22 Resp 16 10/18/23 06:22 BP 122/60 10/18/23 06:22 Pulse Ox 89 L 10/18/23 06:22 O2 Del Method Nasal Cannula 10/18/23 06:22 O2 Flow Rate 1 10/18/23 06:22 Oxygen Flow Rate 2 10/17/23 20:37 BMI result Body Mass Index 43.1 Constitutional - Awake and Alert, No apparent distress. Tachypnea. Uncomfortable due to shortness of breath HEENT - Pupils equally round. Normal sclerae. Moist oral mucosa. Heart - tachycardic. Normal rate. Lungs - Normal lung expansion, Normal respiratory effort, No respiratory distress. Tachycardia. Bilateral expiratory wheezes. Gastrointestinal - nondistended. Normal bowel sounds. Right flank tenderness. No guarding or guarding. Extremities - no calf tenderness bilaterally, no swelling Musculoskeletal - Normal inspection, normal ROM Skin - Warm/Dry Neurological - Alert & oriented x3. Focal weakness. Normal speech. Psychological - Fepression affect Results Labs 10/17/23 21:10 10/17/23 21:10 Labs: Laboratory Results - last 24 hr 10/17/23 10/17/23 10/17/23 21:10 21:34 21:49 MCV 87.9 MCH 28.0 MCHC 31.9 RDW 13.6 Plt Count 197 MPV 12.5 H Immature Gran % (Auto) 0.4 Neut % (Auto) 68.9 Lymph % (Auto) 20.1 [place] % (Auto) 8.3 Eos % (Auto) 2.0 Baso % (Auto) 0.3 Lymph # (Auto) 2.1 [place] # (Auto) 0.9 Eos # (Auto) 0.2 Baso # (Auto) 0.0 Abs Immat Gran (auto) 0.04 H Absolute Neuts (auto) 7.0 Absolute Nucleated RBC 0.000 Nucleated RBC % (auto) 0.0 VBG pH 7.50 H VBG pCO2 39 VBG pO2 68 VBG HCO3 31 H VBG O2 Saturation 94.0 VBG Base Excess 7.6 Anion Gap 16 Estim Creat Clear Calc 37.0 Estimated GFR 36 POC Glucose Random Glucose 235 H Lactic Acid 1.4 Calcium 9.0 Total Bilirubin 0.2 Direct Bilirubin < 0.2 AST 25 ALT 17 Alkaline Phosphatase 40 Troponin I High Sens < 2.7 B-Natriuretic Peptide < 10 Total Protein 6.9 Albumin 3.6 Urine Color Urine Appearance Urine pH Ur Specific Gracey Urine Protein Urine Glucose (UA) Urine Ketones Urine Blood Urine Nitrite Ur Leukocyte Esterase Urine RBC Urine WBC Ur Squamous Epith Cells Urine Bacteria Hyaline Casts Influenza Type A (PCR) NEGATIVE Influenza Type B (PCR) NEGATIVE RSV RNA Qual (PCR) NEGATIVE SARS-CoV-2 RNA (RT-PCR) NEGATIVE 10/17/23 10/18/23 10/18/23 22:10 01:57 07:09 MCV MCH MCHC RDW Plt Count MPV Immature Gran % (Auto) Neut % (Auto) Lymph % (Auto) [place] % (Auto) Eos % (Auto) Baso % (Auto) Lymph # (Auto) [place] # (Auto) Eos # (Auto) Baso # (Auto) Abs Immat Gran (auto) Absolute Neuts (auto) Absolute Nucleated RBC Nucleated RBC % (auto) VBG pH VBG pCO2 VBG pO2 VBG HCO3 VBG O2 Saturation VBG Base Excess Anion Gap Estim Creat Clear Calc Estimated GFR POC Glucose 262 H 289 H Random Glucose Lactic Acid Calcium Total Bilirubin Direct Bilirubin AST ALT Alkaline Phosphatase Troponin I High Sens B-Natriuretic Peptide Total Protein Albumin Urine Color Yellow Urine Appearance Cloudy Urine pH 6.0 Ur Specific Gracey 1.020 Urine Protein Negative Urine Glucose (UA) Negative Urine Ketones Negative Urine Blood Negative Urine Nitrite Positive H Ur Leukocyte Esterase Small (1+) H Urine RBC 3-5 H Urine WBC >50 H Ur Squamous Epith Cells 6-10 Urine Bacteria 4+ Hyaline Casts 0-2 Influenza Type A (PCR) Influenza Type B (PCR) RSV RNA Qual (PCR) SARS-CoV-2 RNA (RT-PCR) Imaging Radiologist's Impressions: Impressions Abdomen/Pelvis CT 10/17/23 21:32 IMPRESSION: 1. No acute process. 2. Left nephrolithiasis. No hydronephrosis. 3. Postsurgical changes within the rectosigmoid colon. No evidence of obstruction or mass lesion. Chest X-Ray 10/17/23 21:40 IMPRESSION: No acute cardiopulmonary process. Assessment and Plan (1) COPD (chronic obstructive pulmonary disease): Qualifiers: COPD type: COPD with acute exacerbation Qualified Code(s): J44.1 - Chronic obstructive pulmonary disease with (acute) exacerbation Status: Acute (2) Uncontrolled diabetes mellitus: Qualifiers: Diabetes mellitus type: type 1 Glycemic state: with hyperglycemia Q ualified Code(s): E10.65 - Type 1 diabetes mellitus with hyperglycemia Status: Acute (3) Acute kidney injury: Status: Acute (4) Depression, major, recurrent: Qualifiers: Active/Remission status: in partial remission Qualified Code(s): F33.41 - Major depressive disorder, recurrent, in partial remission Status: Acute Plan Mine Peacock is 73 years old woman admitted with: * Acute exacerbation of COPD. Admit to hospitalist service. Telemetry. Pulse oximetry. Continue supplemental oxygen via nasal cannula to keep O2 sats > 90%. Continue bronchodilator therapy and IV steroids. Continue montelukast. * Right flank pain likely secondary to urinary tract infection/pyelonephritis. Continue ceftriaxone 1 mg IV daily. Urine culture was obtained -will follow resutls. * Acute kidney injury. Hold lisinopril. IV hydration. Continue to monitor renal function. * Type 2 diabetes mellitus. Continue Lantus and insulin sliding scale. Blood glucose monitoring before meals at bedtime. * Essential hypertension. Continue antihypertensive meds. * Hyperlipidemia. Continue statin. * Depression. Continue home medications. * Restless legs syndrome. Continue pramipexole. * GERD. Continue PPI. * Obstructive sleep apnea. CPAP at bedtime. * Morbid obesity. BMP 43.1 kg/m2. Weight loss. * Chronic anemia. Continue to monitor. * Awaiting for pharmacy to confirm home medications. DVT prophylaxis: Heparin Code status: Full Patient will need hospitalization for at least 2 midnights for acute exacerbation of COPD and urinary tract infection treatment with supplemental oxygen, bronchodilator therapy, IV steroids and IV antibiotics. Quality Stroke Does the patient have a stroke diagnosis?: No VTE Prior VTE?: No VTE Risk Level:: Medical - moderate - high VTE Device Contraindication: Treatment Not Indicated VTE Drug Contraindication: N/A - Med Ordered
[2023-10-18 07:42] LABS: SLIDE REVIEW VERIFIED
[2023-10-18] MEDS: Lactated Ringers 1,000 ML 100 ML IVCONT (08:32)
--- NOTE | 2023-10-18 09:25 | PHA.MEDREC ---
Addendum entered by Celso Pittman 10/18/23 10:52: Pt reports taking 15 units Levemir in the AM and 20 units in [address] PM[address] Dr. Perez has documented that patient was to initiate Levemir 15 units AM and 30 units PM, however patient states they were not told that. Patient also reports that the Levemir that was recently picked up has been giving her an allergic reaction and has made her feel sick . Original Note: Pharmacy Consult ? Medication Reconciliation Pharmacy has completed the medication reconciliation. Patient reports no longer taking protonix.
[2023-10-18] MEDS: guaiFENesin DM 600/30 1 TAB TAB.ER.12H 2 TAB PO ×2 (09:51→21:12)
--- NOTE | 2023-10-18 10:30 | PC.NURSE ---
oob to recliner chair at bedside. vss
[2023-10-18 11:02] LABS: Anion Gap 16 (12-20); Blood Urea Nitrogen 20 mg/dL (9-16); Calcium 8.9 mg/dL (8.4-10.2); Carbon Dioxide 26 mmol/L (22-29); Chloride 101 mmol/L (96-108); Creatinine Clr Calc Pharmacy 35.2; Estimated Glomerular Filt Rate 34; Glucose Random 296 mg/dL (60-115); Magnesium 1.5 mg/dL (1.6-2.6); Potassium 5.1 mmol/L (3.3-5.1); Sodium 138 mmol/L (135-145)
[2023-10-18] MEDS: Gabapentin 300 MG CAPSULE PO (11:43)
--- NOTE | 2023-10-18 12:10 | PC.NURSE ---
called pharmacy spoke w/bear re:mirapex sts will be loaded in pyxsis
[2023-10-18] MEDS: Pramipexole Di-HCL 0.25 MG TABLET 0.5 MG PO ×2 (12:30→21:12)
--- NOTE | 2023-10-18 13:21 | P.EN_ITS ---
Event Note Date of Service: 10/18/23 Event Note: seen and examined this morning follow up for COPD, UTI pt reports dysuria, sob for a few days; productive cough. appears comfortable, breathing nonlabored This is 73 years old woman admitted with: * Acute exacerbation of COPD. On 2 L of supplemental oxygen at baseline. Continue supplemental oxygen via nasal cannula to keep O2 sats > 90%. Continue bronchodilator therapy and IV steroids. * urinary tract infection. Continue ceftriaxone 1 mg IV daily. Urine culture was obtained -will follow results. Blood cultures pending. no sepsis. tachycardia r/t breathing treatments/respiratory status; tachypnea due to copd * Acute kidney injury on CKD3, mild Hold lisinopril. gentle IV hydration. Continue to monitor renal function. hold evening dose of gabapentin due to increased renal function * Type 2 diabetes mellitus. unclear dose of lantus. last admission received 10 bid - will start with that and titrate prn * Essential hypertension. Continue Norvasc, hold lisinopril due to mild AGUSTIN * Hyperlipidemia. Continue statin. * Depression. Continue home medications * Restless legs syndrome. Continue pramipexole. * Obstructive sleep apnea. CPAP at bedtime. * Morbid obesity. BMP 43.1 kg/m2. Weight loss encouraged * Chronic anemia. Continue to monitor. dvt ppx - heparin Time Spent With Patient Time: Total time managing care of this patient today ____ minutes.
--- NOTE | 2023-10-18 13:21 | PM.EVENT ---
Event Note Date of Service: 10/18/23 Event Note: seen and examined this morning follow up for COPD, UTI pt reports dysuria, sob for a few days; productive cough. appears comfortable, breathing nonlabored This is 73 years old woman admitted with: Acute exacerbation of COPD. On 2 L of supplemental oxygen at baseline. Continue supplemental oxygen via nasal cannula to keep O2 sats > 90%. Continue bronchodilator therapy and IV steroids. urinary tract infection. Continue ceftriaxone 1 mg IV daily. Urine culture was obtained -will follow results. Blood cultures pending. no sepsis. tachycardia r/t breathing treatments/respiratory status; tachypnea due to copd Acute kidney injury on CKD3, mild Hold lisinopril. gentle IV hydration. Continue to monitor renal function. hold evening dose of gabapentin due to increased renal function Type 2 diabetes mellitus. unclear dose of lantus. last admission received 10 bid - will start with that and titrate prn Essential hypertension. Continue Norvasc, hold lisinopril due to mild AGUSTIN Hyperlipidemia. Continue statin. Depression. Continue home medications Restless legs syndrome. Continue pramipexole. Obstructive sleep apnea. CPAP at bedtime. Morbid obesity. BMP 43.1 kg/m2. Weight loss encouraged Chronic anemia. Continue to monitor. dvt ppx - heparin Time Spent With Patient Time: Total time managing care of this patient today ____ minutes.
[2023-10-18 13:32] LABS: Glucose, Whole Blood 405 mg/dL (60-115)
--- NOTE | 2023-10-18 13:36 | PC.NURSE ---
Provider notified of blood sugar, new order obtained to give 14 units of fast acting insulin
[2023-10-18] MEDS: Insulin Glargine,Hum.rec.anlog 100 UNIT/ML 10 ML VIAL 10 UNIT SUBCUT ×2 (13:43→21:13)
--- NOTE | 2023-10-18 14:04 | PC.NURSE ---
Patient had large BM in bedside commode, reports legs feel better and less restless , at bedside
--- NOTE | 2023-10-18 16:09 | PC.NURSE ---
Patient sleeping comfortably at this time. Oxygen continues to flow via nasal cannula at 2LPM. Respirations even & unlabored. Resting in patient chair.
--- NOTE | 2023-10-18 17:18 | PC.NURSE ---
Patient repositioned into chair. Oxygen 2LPM via nasal cannula. Requesting a breathing treatment . Spoke with respiratory therapist, who will administer medications per PRN orders at 6:30pm. Pt aware and agreeable with this plan. Vital signs stable at this time. Pt requested pillow to be placed under her feet while in chair, new blanket, and 2 ice packs (1 per leg) for restless leg discomfort. Fluids continue to infuse at 80ml/hour as ordered, but IV is positional and patient frequently continues to bend her arm at the elbow, causing downstream occlusion pump alarm to alarm. Used bedside commode to void. Bedside commode cleansed by this RN. Call hurst within reach, all needs met at this time.
--- NOTE | 2023-10-18 17:36 | PC.NURSE ---
Dinner trays have not arrived yet. Plan for POC Glucose with meal.
[2023-10-18 18:48] LABS: Glucose, Whole Blood 313 mg/dL (60-115)
--- NOTE | 2023-10-18 19:02 | PC.NURSE ---
Patient requested a different dinner tray than the one given/offered. Cafeteria staff contacted by Roxanna Villarreal RN on behalf of this RN to request a new dinner tray. POC Glucose 313 at 18:44.
--- NOTE | 2023-10-18 19:39 | MHC.EDTECH ---
Pt requested to have malcolm-care as they had been incontinent of urine. Pt was assisted with stand by and set up assistance to the commode. They then were assisted with a partial bed bath, and oral care. Pt participated in the activities only needed limited assistance.
--- NOTE | 2023-10-18 21:00 | PC.NURSE ---
pt medicated per sep, pt tolerated well with water. pt resting in chair, reports she does not want to sleep in bed, pt given blankets and legs raised. pt normal sinus on tele 85-89bpm. pt on 2 L nasal cannula.
[2023-10-18 21:06] LABS: Glucose, Whole Blood 278 mg/dL (60-115)
[2023-10-18] MEDS: rOPINIRole HCL 2 MG TABLET PO (21:11)
[2023-10-18] MEDS: hydrOXYzine HCL 25 MG TABLET PO (21:12)
[2023-10-18] MEDS: cefTRIAXone sodium 1 GM in 0.9 % Sodium Chloride 50 ML IV (21:12)
[2023-10-18] MEDS: traZODone HCL 100 MG TABLET 200 MG PO (21:12)
[2023-10-18] MEDS: buPROPion HCl XL 150 MG TAB.ER.24H PO (21:12)
--- NOTE | 2023-10-18 22:17 | PC.RT ---
Pt refused CPAP for NOC suppport
[2023-10-19] VITALS (10 sets, daily range): BP systolic 122–154; BP diastolic 57–67; PULSE 90–112; RESP 18–26; TEMP 36.6–37.1; O2SAT 92–96; BMI 43.8
--- NOTE | 2023-10-19 00:57 | MHC.EDTECH ---
This pct assumed care of Patient at 2300 ,vitals taken ,Patient was incontinent of urine ,care given ,pt was given fresh ice water given ,pt room was tidy up ,Patient requested to sleep in the recliner chair ,RN aware .
[2023-10-19] MEDS: Heparin Sodium,Porcine 5,000 UNIT/ML VIAL 5000 UNIT SUBCUT ×3 (01:57→17:10)
[2023-10-19] MEDS: methylPREDNISolone Sod Succ 40 MG/ML VIAL IVPUSH ×2 (03:54→11:29)
[2023-10-19] MEDS: Lactated Ringers 1,000 ML 100 ML IVCONT ×2 (03:54→11:13)
--- NOTE | 2023-10-19 07:21 | PC.RT ---
pt refusing to wear cpap.
[2023-10-19] MEDS: Albuterol/Iprat 2.5/0.5MG 3 ML AMPUL.NEB INHALE ×4 (07:45→19:14)
[2023-10-19 07:51] LABS: Glucose, Whole Blood 311 mg/dL (60-115)
[2023-10-19] MEDS: Insulin Lispro 100 UNIT/ML 3 ML VIAL SUBCUT ×3 (08:08→17:10)
[2023-10-19] MEDS: Escitalopram Oxalate 10 MG TABLET 5 MG PO (08:11)
[2023-10-19] MEDS: Gabapentin 300 MG CAPSULE PO (08:12)
[2023-10-19] MEDS: guaiFENesin DM 600/30 1 TAB TAB.ER.12H 2 TAB PO (08:12)
[2023-10-19] MEDS: amLODIPine Besylate 5 MG TABLET PO (08:13)
[2023-10-19] MEDS: Pramipexole Di-HCL 0.25 MG TABLET 0.5 MG PO ×2 (08:13→15:42)
[2023-10-19] MEDS: Aspirin 81 MG TAB.CHEW PO (08:14)
[2023-10-19] MEDS: Atorvastatin Calcium 80 MG TABLET PO (08:14)
--- NOTE | 2023-10-19 08:21 | PC.NURSE ---
patient is sitting up in recliner, skin PWD, respirations equal though tachypneic. patient medicated per SEP, sitting up eating breakfast, has LR running 100ml/hr. patient speaking in clear full sentences, has productive cough, alert and oriented x3.
[2023-10-19] MEDS: Montelukast Sodium 10 MG TABLET PO (08:55)
[2023-10-19] MEDS: Insulin Glargine,Hum.rec.anlog 100 UNIT/ML 10 ML VIAL 10 UNIT SUBCUT (09:02)
[2023-10-19] MEDS: rOPINIRole HCL 2 MG TABLET PO (09:02)
--- NOTE | 2023-10-19 10:49 | HO.PM.IMPN ---
Subjective Subjective Date of Service: 10/19/23 Review of Systems Follow up COPD and UTI Still with some mild sob but better Physical Exam Vital Signs: Vital Signs: Last Vital Signs Temp 97.9 F 10/19/23 08:03 Pulse 109 H 10/19/23 10:45 Resp 22 H 10/19/23 10:45 BP 154/67 H 10/19/23 08:03 Pulse Ox 93 10/19/23 08:03 O2 Del Method Nasal Cannula 10/19/23 08:03 O2 Flow Rate 2 10/19/23 08:03 Oxygen Flow Rate 2 10/17/23 20:37 BMI result Body Mass Index 43.1 Appearing in no acute distress lung sounds are clear to auscultation heart regular rate rhythm, clear S1, S2 positive bowel sounds, abdomen is soft, nontender neuro patient is alert x3, no focal deficits Objective Data Active Medications Acetaminophen (Acetaminophen 325 Mg Tablet) 975 mg PO Q6H PRN PRN Reason: Pain, Mild (Pain Scale 1-3) Last Admin: 10/18/23 05:55 Dose: 975 mg Documented By: ZIGGY Albuterol Sulfate (Albuterol Sulfate (0.083%) 2.5 Mg/3 Ml Vial.Neb) 2.5 mg INHALE Q4H PRN PRN Reason: shortness of breath or wheezing Albuterol/Ipratropium (Albuterol/Iprat 2.5/0.5mg 3 Ml Ampul.Neb) 3 ml INHALE RQ4H WHILE AWAKE [facility] Last Admin: 10/19/23 10:44 Dose: 3 ml Documented By: NAEEM Amlodipine Besylate (Amlodipine Besylate 5 Mg Tablet) 5 mg PO DAILY [facility]; Protocol Last Admin: 10/19/23 08:13 Dose: 5 mg Documented By: RENEE Aspirin (Aspirin 81 Mg Tab.Chew) 81 mg PO DAILY [facility] Last Admin: 10/19/23 08:14 Dose: 81 mg Documented By: RENEE Atorvastatin Calcium (Atorvastatin Calcium 80 Mg Tablet) 80 mg PO DAILY [facility] Last Admin: 10/19/23 08:14 Dose: 80 mg Documented By: RENEE Bupropion HCl (Bupropion Hcl Xl 150 Mg Tab.Er.24h) 150 mg PO BEDTIME [facility] Last Admin: 10/18/23 21:12 Dose: 150 mg Documented By: SOFIA Cyclobenzaprine HCl (Cyclobenzaprine Hcl 10 Mg Tablet) 10 mg PO TID PRN PRN Reason: muscle spasm Escitalopram Oxalate (Escitalopram Oxalate 10 Mg Tablet) 5 mg PO DAILY [facility] Last Admin: 10/19/23 08:11 Dose: 5 mg Documented By: RENEE Gabapentin (Gabapentin 300 Mg Capsule) 300 mg PO DAILY [facility] Last Admin: 10/19/23 08:12 Dose: 300 mg Documented By: RENEE Gabapentin (Gabapentin 300 Mg Capsule) 900 mg PO BEDTIME [facility] Glucose (Glucose Gel 15 Gm Gel..Gram.) 15 gm PO Q15M PRN; Protocol PRN Reason: per Hypoglycemia Standing Ord. Glucose (Glucose Gel 15 Gm Gel..Gram.) 15 gm PO Q15M PRN; Protocol PRN Reason: per Hypoglycemia Standing Ord. Guaifenesin/Dextromethorphan (Guaifenesin Dm 600/30 1 Tab Tab.Er.12h) 2 tab PO BID [facility] Last Admin: 10/19/23 08:12 Dose: 2 tab Documented By: RENEE Heparin Sodium (Porcine) (Heparin Sodium,Porcine 5,000 Unit/Ml Vial) 5,000 unit SUBCUT Q8H [facility] Last Admin: 10/19/23 08:09 Dose: 5,000 unit Documented By: RENEE Hydroxyzine HCl (Hydroxyzine Hcl 25 Mg Tablet) 25 mg PO BEDTIME [facility] Last Admin: 10/18/23 21:12 Dose: 25 mg Documented By: SOFIA Dextrose (D10) 250 mls @ 750 mls/hr IV Q15M PRN; Protocol PRN Reason: per Hypoglycemia Standing Ord. Ceftriaxone Sodium 1 gm/ (Sodium Chloride) 50 mls @ 100 mls/hr IV Q24H [facility] Last Infusion: 10/18/23 23:06 Dose: Infused Documented By: SOFIA Dextrose (D10) 250 mls @ 750 mls/hr IV Q15M PRN; Protocol PRN Reason: per Hypoglycemia Standing Ord. Insulin Glargine (Insulin Glargine,Hum.Rec.Anlog 100 Unit/Ml 10 Ml Vial) 10 unit SUBCUT BID [facility] Last Admin: 10/19/23 09:02 Dose: 10 unit Documented By: RENEE Insulin Human Lispro (Insulin Lispro 100 Unit/Ml 3 Ml Vial) 0 unit SUBCUT QIDACHS [facility]; Protocol Last Admin: 10/19/23 08:08 Dose: 8 unit Documented By: RENEE Lisinopril (Lisinopril 5 Mg Tablet) 5 mg PO DAILY [facility]; Protocol Methylprednisolone Sodium Succinate (Methylprednisolone Sod Succ 40 Mg/Ml Vial) 40 mg IVPUSH Q8H [facility] Last Admin: 10/19/23 03:54 Dose: 40 mg Documented By: SOFIA Montelukast Sodium (Montelukast Sodium 10 Mg Tablet) 10 mg PO DAILY [facility] Last Admin: 10/19/23 08:55 Dose: 10 mg Documented By: RENEE Pramipexole Dihydrochloride (Pramipexole Di-Hcl 0.25 Mg Tablet) 0.5 mg PO TID [facility] Last Admin: 10/19/23 08:13 Dose: 0.5 mg Documented By: RENEE Ropinirole HCl (Ropinirole Hcl 2 Mg Tablet) 2 mg PO BID [facility] Last Admin: 10/19/23 09:02 Dose: 2 mg Documented By: RENEE Sodium Chloride (0.9 % Sodium Chloride Flush 3 Ml Syringe) 3 ml IVFLUSH QSHIFT [facility] Last Admin: 10/19/23 08:19 Dose: Not Given Documented By: RENEE Non-Admin Reason: IV Running Trazodone HCl (Trazodone Hcl 100 Mg Tablet) 200 mg PO BEDTIME [facility] Last Admin: 10/18/23 21:12 Dose: 200 mg Documented By: SOFIA Labs 10/18/23 06:06 10/18/23 06:06 Labs: Laboratory Results - last 24 hr 10/18/23 10/18/23 10/18/23 06:06 13:25 18:44 Anion Gap 16 Estim Creat Clear Calc 35.2 Estimated GFR 34 POC Glucose 405 H* 313 H Random Glucose 296 H Calcium 8.9 Magnesium 1.5 L 10/18/23 10/19/23 21:02 07:48 Anion Gap Estim Creat Clear Calc Estimated GFR POC Glucose 278 H 311 H Random Glucose Calcium Magnesium Microbiology Microbiology Results: Microbiology 10/17/23 22:10 Urine Culture - Final Urine clean catch - Urine almaguer top 10/17/23 21:10 Blood Culture - Preliminary Blood - Venous No growth after 24 hours. 10/17/23 21:10 Blood Culture - Preliminary Blood - Venous No growth after 24 hours. Assessment and Plan (1) COPD (chronic obstructive pulmonary disease): Status: Acute Plan 73-year-old woman admitted with acute COPD exacerbation Acute COPD exacerbation Continue supplemental oxygen to keep oxygen saturation greater than 90% Scheduled steroids and DuoNebs UTI Ceftriaxone urine cx negative AGUSTIN on CKD stage 3 Mild Hold lisinopril Gentle IV hydration Diabetes mellitus type 2 Sliding scale, ADA diet Hypertension Continue Norvasc, hold lisinopril due to AGUSTIN Hyperlipidemia Continue statin Mental health Continue home medications Restless leg syndrome Continue pramipexole Obstructive sleep apnea CPAP at bedtime Normocytic anemia Stable CBC Morbid obesity. BMI 43.1 Discussed importance of weight management as this may be contributing to worsening of other comorbidities DVT prophylaxis with heparin Attending Dr. Tang Full code Patient will require at least 48 hours admission for treatment of CMV exacerbation requiring scheduled IV steroids, scheduled DuoNeb treatments and oxygen Quality Stroke Does the patient have a stroke diagnosis?: No VTE Prior VTE?: No VTE Risk Level:: Medical - moderate - high VTE Device Contraindication: Treatment Not Indicated VTE Drug Contraindication: N/A - Med Ordered
[2023-10-19 11:35] LABS: Glucose, Whole Blood 318 mg/dL (60-115)
--- NOTE | 2023-10-19 12:02 | MHC.CM.PN ---
CM met with Patient at bedside and addressed IMM with her (original was given to Patient and a copy has been placed on the chart). Patient typically lives alone in an apartment but her Ex- is staying with her to assist her. Patient uses a w/c to assist with mobility and her Son/HCP is her [employer] 41 hours/week. Patient's home O2 is supplied by [facility] and she is active with [facility]. Home/resume said services is the goal and CM has initiated and will follow for dc planning.PCP is Dr. Shelbi Perez.
[2023-10-19] MEDS: 0.9 % Sodium Chloride Flush 3 ML SYRINGE IVFLUSH (15:45)
[2023-10-19 16:42] LABS: Glucose, Whole Blood 230 mg/dL (60-115)
[2023-10-19] MEDS: LORazepam 0.5 MG TABLET 0.25 MG PO (17:35)
--- NOTE | 2023-10-19 18:06 | PC.NURSE ---
Pt was getting anxious crying to RN about ex- and home issues with him going through her bills, asking RN for something for anxiety stating she feels like she wants to jump out of her skin and its making her breathing worse. Contacted provider. New order for 0.25mg PO ativan prn for anxiety- admin to pt with good effect, resting comfortably at this time
[2023-10-19 20:54] LABS: Glucose, Whole Blood 306 mg/dL (60-115)
[2023-10-20] VITALS (12 sets, daily range): BP systolic 117–145; BP diastolic 56–69; PULSE 80–97; RESP 18–22; TEMP 36.2–37.2; O2SAT 92–98
[2023-10-20] MEDS: methylPREDNISolone Sod Succ 40 MG/ML VIAL IVPUSH ×4 (00:25→20:09)
[2023-10-20] MEDS: buPROPion HCl XL 150 MG TAB.ER.24H PO ×2 (00:25→21:12)
[2023-10-20] MEDS: cefTRIAXone sodium 1 GM in 0.9 % Sodium Chloride 50 ML IV (00:25)
[2023-10-20] MEDS: rOPINIRole HCL 2 MG TABLET PO ×3 (00:26→21:12)
[2023-10-20] MEDS: traZODone HCL 100 MG TABLET 200 MG PO ×2 (00:26→21:12)
[2023-10-20] MEDS: guaiFENesin DM 600/30 1 TAB TAB.ER.12H 2 TAB PO ×3 (00:26→21:11)
[2023-10-20] MEDS: Pramipexole Di-HCL 0.25 MG TABLET 0.5 MG PO ×4 (00:26→21:12)
[2023-10-20] MEDS: hydrOXYzine HCL 25 MG TABLET PO ×2 (00:27→21:12)
[2023-10-20] MEDS: Heparin Sodium,Porcine 5,000 UNIT/ML VIAL 5000 UNIT SUBCUT ×3 (00:56→16:03)
[2023-10-20] MEDS: Insulin Glargine,Hum.rec.anlog 100 UNIT/ML 10 ML VIAL 10 UNIT SUBCUT ×3 (00:57→20:09)
[2023-10-20] MEDS: Insulin Lispro 100 UNIT/ML 3 ML VIAL SUBCUT ×5 (00:57→20:08)
[2023-10-20] MEDS: 0.9 % Sodium Chloride Flush 3 ML SYRINGE IVFLUSH ×4 (00:58→21:13)
[2023-10-20 01:08] LABS: Glucose, Whole Blood 271 mg/dL (60-115)
[2023-10-20] MEDS: LORazepam 0.5 MG TABLET 0.25 MG PO ×2 (03:09→21:12)
[2023-10-20] MEDS: Albuterol Sulfate (0.083%) 2.5 MG/3 ML VIAL.NEB INHALE (03:42)
[2023-10-20] MEDS: Albuterol/Iprat 2.5/0.5MG 3 ML AMPUL.NEB INHALE ×4 (07:33→19:19)
[2023-10-20 08:23] LABS: Glucose, Whole Blood 307 mg/dL (60-115)
[2023-10-20] MEDS: Atorvastatin Calcium 80 MG TABLET PO (08:48)
[2023-10-20] MEDS: Escitalopram Oxalate 10 MG TABLET 5 MG PO (08:48)
[2023-10-20] MEDS: Gabapentin 300 MG CAPSULE PO (08:48)
[2023-10-20] MEDS: amLODIPine Besylate 5 MG TABLET PO (08:49)
[2023-10-20] MEDS: Montelukast Sodium 10 MG TABLET PO (08:49)
[2023-10-20] MEDS: Aspirin 81 MG TAB.CHEW PO (08:49)
--- NOTE | 2023-10-20 10:11 | HO.PM.IMPN ---
Subjective Subjective Date of Service: 10/20/23 Review of Systems Follow up COPD exacerbation , UTI , AGUSTIN feeling better but still wheezy Physical Exam Vital Signs: Vital Signs: Last Vital Signs Temp 98.7 F 10/20/23 08:00 Pulse 96 10/20/23 08:00 Resp 20 10/20/23 08:00 BP 137/69 10/20/23 08:00 Pulse Ox 94 10/20/23 08:00 O2 Del Method Nasal Cannula 10/20/23 08:00 O2 Flow Rate 2 10/20/23 08:00 Oxygen Flow Rate 2 10/17/23 20:37 BMI result Body Mass Index 43.8 Appearing in no acute distress lung sounds exp wheezing heart regular rate rhythm, clear S1, S2 positive bowel sounds, abdomen is soft, nontender neuro patient is alert x3, no focal deficits Objective Data Active Medications Acetaminophen (Acetaminophen 325 Mg Tablet) 975 mg PO Q6H PRN PRN Reason: Pain, Mild (Pain Scale 1-3) Last Admin: 10/18/23 05:55 Dose: 975 mg Documented By: ZIGGY Albuterol Sulfate (Albuterol Sulfate (0.083%) 2.5 Mg/3 Ml Vial.Neb) 2.5 mg INHALE Q4H PRN PRN Reason: shortness of breath or wheezing Last Admin: 10/20/23 03:42 Dose: 2.5 mg Documented By: SHAKILA Albuterol/Ipratropium (Albuterol/Iprat 2.5/0.5mg 3 Ml Ampul.Neb) 3 ml INHALE RQ4H WHILE AWAKE [facility] Last Admin: 10/20/23 07:33 Dose: 3 ml Documented By: ORESTES Amlodipine Besylate (Amlodipine Besylate 5 Mg Tablet) 5 mg PO DAILY [facility]; Protocol Last Admin: 10/20/23 08:49 Dose: 5 mg Documented By: NAVNEET Aspirin (Aspirin 81 Mg Tab.Chew) 81 mg PO DAILY [facility] Last Admin: 10/20/23 08:49 Dose: 81 mg Documented By: NAVNEET Atorvastatin Calcium (Atorvastatin Calcium 80 Mg Tablet) 80 mg PO DAILY [facility] Last Admin: 10/20/23 08:48 Dose: 80 mg Documented By: NAVNEET Bupropion HCl (Bupropion Hcl Xl 150 Mg Tab.Er.24h) 150 mg PO BEDTIME [facility] Last Admin: 10/20/23 00:25 Dose: 150 mg Documented By: KATE Cyclobenzaprine HCl (Cyclobenzaprine Hcl 10 Mg Tablet) 10 mg PO TID PRN PRN Reason: muscle spasm Escitalopram Oxalate (Escitalopram Oxalate 10 Mg Tablet) 5 mg PO DAILY [facility] Last Admin: 10/20/23 08:48 Dose: 5 mg Documented By: NAVNEET Gabapentin (Gabapentin 300 Mg Capsule) 300 mg PO DAILY [facility] Last Admin: 10/20/23 08:48 Dose: 300 mg Documented By: NAVNEET Gabapentin (Gabapentin 300 Mg Capsule) 900 mg PO BEDTIME [facility] Glucose (Glucose Gel 15 Gm Gel..Gram.) 15 gm PO Q15M PRN; Protocol PRN Reason: per Hypoglycemia Standing Ord. Glucose (Glucose Gel 15 Gm Gel..Gram.) 15 gm PO Q15M PRN; Protocol PRN Reason: per Hypoglycemia Standing Ord. Guaifenesin/Dextromethorphan (Guaifenesin Dm 600/30 1 Tab Tab.Er.12h) 2 tab PO BID [facility] Last Admin: 10/20/23 08:49 Dose: 2 tab Documented By: NAVNEET Heparin Sodium (Porcine) (Heparin Sodium,Porcine 5,000 Unit/Ml Vial) 5,000 unit SUBCUT Q8H [facility] Last Admin: 10/20/23 08:49 Dose: 5,000 unit Documented By: NAVNEET Hydroxyzine HCl (Hydroxyzine Hcl 25 Mg Tablet) 25 mg PO BEDTIME [facility] Last Admin: 10/20/23 00:27 Dose: 25 mg Documented By: KATE Dextrose (D10) 250 mls @ 750 mls/hr IV Q15M PRN; Protocol PRN Reason: per Hypoglycemia Standing Ord. Ceftriaxone Sodium 1 gm/ (Sodium Chloride) 50 mls @ 100 mls/hr IV Q24H [facility] Last Infusion: 10/20/23 01:00 Dose: Infused Documented By: KATE Dextrose (D10) 250 mls @ 750 mls/hr IV Q15M PRN; Protocol PRN Reason: per Hypoglycemia Standing Ord. Insulin Glargine (Insulin Glargine,Hum.Rec.Anlog 100 Unit/Ml 10 Ml Vial) 10 unit SUBCUT BID [facility] Last Admin: 10/20/23 08:49 Dose: 10 unit Documented By: NAVNEET Insulin Human Lispro (Insulin Lispro 100 Unit/Ml 3 Ml Vial) 0 unit SUBCUT QIDACHS [facility]; Protocol Last Admin: 10/20/23 08:25 Dose: 8 unit Documented By: NAVNEET Lisinopril (Lisinopril 5 Mg Tablet) 5 mg PO DAILY [facility]; Protocol Lorazepam (Lorazepam 0.5 Mg Tablet) 0.25 mg PO Q8H PRN PRN Reason: Anxiety Last Admin: 10/20/23 03:09 Dose: 0.25 mg Documented By: DANITA Methylprednisolone Sodium Succinate (Methylprednisolone Sod Succ 40 Mg/Ml Vial) 40 mg IVPUSH Q8H [facility] Last Admin: 10/20/23 03:09 Dose: 40 mg Documented By: DANITA Montelukast Sodium (Montelukast Sodium 10 Mg Tablet) 10 mg PO DAILY [facility] Last Admin: 10/20/23 08:49 Dose: 10 mg Documented By: NAVNEET Pramipexole Dihydrochloride (Pramipexole Di-Hcl 0.25 Mg Tablet) 0.5 mg PO TID [facility] Last Admin: 10/20/23 08:48 Dose: 0.5 mg Documented By: NAVNEET Ropinirole HCl (Ropinirole Hcl 2 Mg Tablet) 2 mg PO BID [facility] Last Admin: 10/20/23 08:49 Dose: 2 mg Documented By: NAVNEET Sodium Chloride (0.9 % Sodium Chloride Flush 3 Ml Syringe) 3 ml IVFLUSH QSHIFT [facility] Last Admin: 10/20/23 08:49 Dose: 3 ml Documented By: NAVNEET Trazodone HCl (Trazodone Hcl 100 Mg Tablet) 200 mg PO BEDTIME [facility] Last Admin: 10/20/23 00:26 Dose: 200 mg Documented By: KATE Labs 10/18/23 06:06 10/18/23 06:06 Labs: Laboratory Results - last 24 hr 10/19/23 10/19/23 10/19/23 11:14 16:34 20:48 POC Glucose 318 H 230 H 306 H 10/20/23 10/20/23 00:40 08:15 POC Glucose 271 H 307 H Microbiology Microbiology Results: Microbiology 10/17/23 21:10 Blood Culture - Preliminary Blood - Venous No growth after 48 hours. 10/17/23 21:10 Blood Culture - Preliminary Blood - Venous No growth after 48 hours. 10/17/23 22:10 Urine Culture - Final Urine clean catch - Urine almaguer top Assessment and Plan (1) COPD (chronic obstructive pulmonary disease): Status: Acute Plan 73-year-old woman admitted with acute COPD exacerbation Acute COPD exacerbation Continue supplemental oxygen to keep oxygen saturation greater than 90% Scheduled steroids and DuoNebs UTI Ceftriaxone stopped urine cx negative AGUSTIN on CKD stage 3 Mild Hold lisinopril Gentle IV hydration Diabetes mellitus type 2 Sliding scale, ADA diet Hypertension Continue Norvasc, hold lisinopril due to AGUSTIN Hyperlipidemia Continue statin Mental health Continue home medications Restless leg syndrome Continue pramipexole Obstructive sleep apnea CPAP at bedtime Normocytic anemia Stable CBC Morbid obesity. BMI 43.1 Discussed importance of weight management as this may be contributing to worsening of other comorbidities DVT prophylaxis with heparin Attending Dr. Tang Full code continue hospital stay for treatment of CMV exacerbation requiring scheduled IV steroids, scheduled DuoNeb treatments and oxygen Quality Stroke Does the patient have a stroke diagnosis?: No VTE Prior VTE?: No VTE Risk Level:: Medical - moderate - high VTE Device Contraindication: Treatment Not Indicated VTE Drug Contraindication: N/A - Med Ordered
[2023-10-20] MEDS: Cyclobenzaprine HCl 10 MG TABLET PO ×2 (11:23→21:12)
[2023-10-20 12:05] LABS: Glucose, Whole Blood 297 mg/dL (60-115)
--- NOTE | 2023-10-20 12:14 | MHC.CM.PN ---
PT is recommending home with services; CM will follow.
--- NOTE | 2023-10-20 15:24 | W.PM.IDCN ---
History of Present Illness Data of Consult Service Date: 10/19/23 Requesting physician: Rebecca Calloway Primary Care Provider: Shelbi Perez MD HPI Reason for consult: COPD, ?UTI She presents with cough and shortness of breath. SHe has COPD. She has current no urinary symptoms. Review of Systems Review of Systems: Yes all other systems are reviewed and are negative PMFSH Past Medical History Medical History Dysuria Kidney stone on left side Diabetes 1.5, managed as type 1 Recurrent UTI COPD (chronic obstructive pulmonary disease) Respiratory failure with hypoxia Urinary tract infection Hypoxemia Morbid obesity CKD (chronic kidney disease) Anemia COPD exacerbation Allergic rhinitis ALDO (obstructive sleep apnea) Obesity (BMI 30-39.9) Constipation due to opioid therapy Osteoarthritis of left knee Hx SBO Hyperlipidemia CPAP (continuous positive airway pressure) dependence History of adrenal adenoma Osteochondroma of left femur Arthritis Diabetes Elevated cholesterol History of restless legs syndrome History of diverticulitis GERD (gastroesophageal reflux disease) Family History Family History Father HTN (hypertension) Diabetes mellitus Mother HTN (hypertension) Liver cancer Surgical History Surgical History H/O excision of mass History of oophorectomy History of cholecystectomy History of appendectomy History of arthroscopy of left knee History of partial colectomy Hx of cataract extraction H/O exploratory laparotomy H/O colonoscopy History of surgery History of hysterectomy Social History Social History 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: Other 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 Other:: ex- has been staying over Housing: House Are you a primary tree care foreman to a significant other at home: No Do you presently have visiting nurse or other home services: Yes Unable to assess alcohol history related to: Unknown Alcohol intake: never Comment: PT SLEEPING Patient Tobacco Use Status: Never used Tobacco e-Cigarette/Vaping Use: Never Used Second Hand Smoke Exposure: No Advance Directives Date on File: 10/19/23 service: No Current occupational status: retired Cognitive needs: No Hearing needs: No Vision needs: No Meds Allergies Allergy/AdvReac Type Severity Reaction Status Date / Time adhesive tape [ADHESIVE TAPE] Allergy Intermediate RASH Verified 10/17/23 20:40 trimethobenzamide Allergy Mild NAUSEA Verified 10/15/23 08:50 [From TIGAN] environmental Allergy Intermediate Nasal Uncoded 10/17/23 20:40 congestion Active Medications: Current Medications Acetaminophen (Acetaminophen 325 Mg Tablet) 975 mg PO Q6H PRN PRN Reason: Pain, Mild (Pain Scale 1-3) Last Admin: 10/18/23 05:55 Dose: 975 mg Albuterol Sulfate (Albuterol Sulfate (0.083%) 2.5 Mg/3 Ml Vial.Neb) 2.5 mg INHALE Q4H PRN PRN Reason: shortness of breath or wheezing Last Admin: 10/20/23 03:42 Dose: 2.5 mg Albuterol/Ipratropium (Albuterol/Iprat 2.5/0.5mg 3 Ml Ampul.Neb) 3 ml INHALE RQ4H WHILE AWAKE [facility] Last Admin: 10/20/23 14:52 Dose: 3 ml Amlodipine Besylate (Amlodipine Besylate 5 Mg Tablet) 5 mg PO DAILY [facility]; Protocol Last Admin: 10/20/23 08:49 Dose: 5 mg Aspirin (Aspirin 81 Mg Tab.Chew) 81 mg PO DAILY [facility] Last Admin: 10/20/23 08:49 Dose: 81 mg Atorvastatin Calcium (Atorvastatin Calcium 80 Mg Tablet) 80 mg PO DAILY [facility] Last Admin: 10/20/23 08:48 Dose: 80 mg Bupropion HCl (Bupropion Hcl Xl 150 Mg Tab.Er.24h) 150 mg PO BEDTIME [facility] Last Admin: 10/20/23 00:25 Dose: 150 mg Cyclobenzaprine HCl (Cyclobenzaprine Hcl 10 Mg Tablet) 10 mg PO TID PRN PRN Reason: muscle spasm Last Admin: 10/20/23 11:23 Dose: 10 mg Escitalopram Oxalate (Escitalopram Oxalate 10 Mg Tablet) 5 mg PO DAILY [facility] Last Admin: 10/20/23 08:48 Dose: 5 mg Gabapentin (Gabapentin 300 Mg Capsule) 300 mg PO DAILY [facility] Last Admin: 10/20/23 08:48 Dose: 300 mg Gabapentin (Gabapentin 300 Mg Capsule) 900 mg PO BEDTIME [facility] Glucose (Glucose Gel 15 Gm Gel..Gram.) 15 gm PO Q15M PRN; Protocol PRN Reason: per Hypoglycemia Standing Ord. Glucose (Glucose Gel 15 Gm Gel..Gram.) 15 gm PO Q15M PRN; Protocol PRN Reason: per Hypoglycemia Standing Ord. Guaifenesin/Dextromethorphan (Guaifenesin Dm 600/30 1 Tab Tab.Er.12h) 2 tab PO BID [facility] Last Admin: 10/20/23 08:49 Dose: 2 tab Heparin Sodium (Porcine) (Heparin Sodium,Porcine 5,000 Unit/Ml Vial) 5,000 unit SUBCUT Q8H [facility] Last Admin: 10/20/23 08:49 Dose: 5,000 unit Hydroxyzine HCl (Hydroxyzine Hcl 25 Mg Tablet) 25 mg PO BEDTIME [facility] Last Admin: 10/20/23 00:27 Dose: 25 mg Dextrose (D10) 250 mls @ 750 mls/hr IV Q15M PRN; Protocol PRN Reason: per Hypoglycemia Standing Ord. Dextrose (D10) 250 mls @ 750 mls/hr IV Q15M PRN; Protocol PRN Reason: per Hypoglycemia Standing Ord. Insulin Glargine (Insulin Glargine,Hum.Rec.Anlog 100 Unit/Ml 10 Ml Vial) 10 unit SUBCUT BID [facility] Last Admin: 10/20/23 08:49 Dose: 10 unit Insulin Human Lispro (Insulin Lispro 100 Unit/Ml 3 Ml Vial) 0 unit SUBCUT QIDACHS [facility]; Protocol Last Admin: 10/20/23 12:08 Dose: 8 unit Lisinopril (Lisinopril 5 Mg Tablet) 5 mg PO DAILY [facility]; Protocol Lorazepam (Lorazepam 0.5 Mg Tablet) 0.25 mg PO Q8H PRN PRN Reason: Anxiety Last Admin: 10/20/23 03:09 Dose: 0.25 mg Methylprednisolone Sodium Succinate (Methylprednisolone Sod Succ 40 Mg/Ml Vial) 40 mg IVPUSH Q8H [facility] Last Admin: 10/20/23 12:08 Dose: 40 mg Montelukast Sodium (Montelukast Sodium 10 Mg Tablet) 10 mg PO DAILY [facility] Last Admin: 10/20/23 08:49 Dose: 10 mg Pramipexole Dihydrochloride (Pramipexole Di-Hcl 0.25 Mg Tablet) 0.5 mg PO TID [facility] Last Admin: 10/20/23 08:48 Dose: 0.5 mg Ropinirole HCl (Ropinirole Hcl 2 Mg Tablet) 2 mg PO BID [facility] Last Admin: 10/20/23 08:49 Dose: 2 mg Sodium Chloride (0.9 % Sodium Chloride Flush 3 Ml Syringe) 3 ml IVFLUSH QSHIFT [facility] Last Admin: 10/20/23 08:49 Dose: 3 ml Trazodone HCl (Trazodone Hcl 100 Mg Tablet) 200 mg PO BEDTIME [facility] Last Admin: 10/20/23 00:26 Dose: 200 mg Home Medications ?Medication ?Instructions ?Recorded ?Confirmed ?Last Taken ?Type bupropion HCl 150 mg 24 hr tablet, 150 mg PO BEDTIME 04/25/20 10/18/23 09/01/23 History extended release oxygen-air delivery systems ##1 04/25/20 10/15/23 11/22/21 History blood sugar diagnostic (FreeStyle 08/09/21 10/15/23 11/22/21 History Lite Strips) aspirin 81 mg chewable tablet 81 mg PO DAILY 10/01/21 10/18/23 10/17/23 History trazodone 100 mg tablet 200 mg PO BEDTIME 10/01/21 10/18/23 08/31/23 History cholecalciferol (vitamin D3) 25 25 mcg PO DAILY 01/04/22 10/18/23 10/17/23 History mcg (1,000 unit) capsule hydroxyzine pamoate 25 mg capsule 25 mg PO BEDTIME 08/13/22 10/18/23 09/01/23 History citalopram 10 mg tablet 10 mg PO DAILY 06/06/23 10/18/23 10/17/23 History multivitamin 1 tab PO DAILY 06/06/23 10/18/23 10/17/23 History gabapentin 300 mg capsule 300 mg PO DAILY 07/22/23 10/18/23 10/17/23 History albuterol sulfate 90 mcg/actuation 2 puff inhalation Q4H PRN 09/02/23 10/18/23 Unknown History aerosol inhaler (ProAir HFA) shortness of breath or wheezing gabapentin 300 mg capsule 900 mg PO BEDTIME 09/02/23 10/18/23 09/01/23 History pramipexole 0.5 mg tablet 0.5 mg PO TID 09/02/23 10/18/23 10/17/23 History ropinirole 2 mg tablet 2 mg PO BID 09/02/23 10/18/23 10/17/23 History insulin detemir U-100 100 unit/mL 15 unit subcut DAILY 10/18/23 10/18/23 10/17/23 History (3 mL) subcutaneous pen (Levemir FlexPen) insulin detemir U-100 100 unit/mL 20 unit subcut BEDTIME 10/18/23 10/18/23 Unknown History (3 mL) subcutaneous pen (Levemir FlexPen) Physical Exam Vital Signs: Vital Signs: Last Vital Signs Temp 97.6 F 10/20/23 12:00 Pulse 90 10/20/23 14:54 Resp 20 10/20/23 14:54 BP 128/56 L 10/20/23 12:00 Pulse Ox 96 10/20/23 12:00 O2 Del Method Nasal Cannula 10/20/23 12:00 O2 Flow Rate 2 10/20/23 12:00 Oxygen Flow Rate 2 10/17/23 20:37 BMI result Body Mass Index 43.8 Const: General: cooperative HEENT: Head: Yes normal to inspection Face and sinus: Yes normal facial exam Mouth: Normal oral and palatal mucosa present Teeth and gingiva: dentition normal Eyes: General: appearance normal, both eyes and all related structures Pupils: Equal, round and reactive pupils present Resp: Effort & Inspection: normal respiratory effort Cardio: Rate: regular rate Rhythm: regular rhythm GI: Palpation (GI): Soft to palpation and nontender : General: Yes no CVA tenderness Back/Spine/Pelvis: Back: no CVA tenderness Skin: General skin exam: no rashes or lesions noted Neuro: General: moves all extremities Cranial nerves: Yes Equal, round and reactive pupils present Extrem: General: Yes normal to inspection Psych: Appearance: grossly normal Results Labs 10/18/23 06:06 10/18/23 06:06 Microbiology Microbiology Results: Microbiology 10/17/23 21:10 Blood - Venous Blood Culture - Preliminary No growth after 48 hours. 10/17/23 21:10 Blood - Venous Blood Culture - Preliminary No growth after 48 hours. 10/17/23 22:10 Urine clean catch - Urine almaguer top Urine Culture - Final Assessment and Plan (1) COPD (chronic obstructive pulmonary disease): Qualifiers: COPD type: COPD with acute exacerbation Qualified Code(s): J44.1 - Chronic obstructive pulmonary disease with (acute) exacerbation Status: Acute Plan there is no bacteremia or active lobar intiltrae at this time,new CXR. Agree hold antibiotics at this time
[2023-10-20 16:02] LABS: Glucose, Whole Blood 360 mg/dL (60-115)
[2023-10-20 20:50] LABS: Glucose, Whole Blood 350 mg/dL (60-115)
[2023-10-21] MEDS: Heparin Sodium,Porcine 5,000 UNIT/ML VIAL 5000 UNIT SUBCUT ×2 (00:05→08:12)
[2023-10-21] MEDS: Albuterol Sulfate (0.083%) 2.5 MG/3 ML VIAL.NEB INHALE (03:07)
[2023-10-21 03:10] VITALS: PULSE 96; RESP 18; O2SAT 98
[2023-10-21] MEDS: methylPREDNISolone Sod Succ 40 MG/ML VIAL IVPUSH ×2 (03:23→12:01)
[2023-10-21 03:26] VITALS: BP 150/67; PULSE 80; RESP 16; TEMP 36; O2SAT 96
[2023-10-21 07:06] LABS: Glucose, Whole Blood 397 mg/dL (60-115)
[2023-10-21 07:12] VITALS: BP 146/70; PULSE 89; RESP 17; TEMP 36.6; O2SAT 93
[2023-10-21 07:26] VITALS: O2SAT 93
--- NOTE | 2023-10-21 07:27 | HO.PM.IMPN ---
Subjective Subjective Date of Service: 10/21/23 Review of Systems Follow up COPD exacerbation , UTI , AGUSTIN feeling better but still wheezy Physical Exam Vital Signs: Vital Signs: Last Vital Signs Temp 98 F 10/21/23 07:12 Pulse 89 10/21/23 07:12 Resp 17 10/21/23 07:12 BP 146/70 H 10/21/23 07:12 Pulse Ox 93 10/21/23 07:12 O2 Del Method Nasal Cannula 10/21/23 07:12 O2 Flow Rate 2 10/21/23 07:12 Oxygen Flow Rate 2 10/17/23 20:37 BMI result Body Mass Index 43.8 Appearing in no acute distress lung sounds are clear to auscultation heart regular rate rhythm, clear S1, S2 positive bowel sounds, abdomen is soft, nontender neuro patient is alert x3, no focal deficits Objective Data Active Medications Acetaminophen (Acetaminophen 325 Mg Tablet) 975 mg PO Q6H PRN PRN Reason: Pain, Mild (Pain Scale 1-3) Last Admin: 10/18/23 05:55 Dose: 975 mg Documented By: ZIGGY Albuterol Sulfate (Albuterol Sulfate (0.083%) 2.5 Mg/3 Ml Vial.Neb) 2.5 mg INHALE Q4H PRN PRN Reason: shortness of breath or wheezing Last Admin: 10/21/23 03:07 Dose: 2.5 mg Documented By: KORI Albuterol/Ipratropium (Albuterol/Iprat 2.5/0.5mg 3 Ml Ampul.Neb) 3 ml INHALE RQ4H WHILE AWAKE [facility] Last Admin: 10/20/23 19:19 Dose: 3 ml Documented By: INDER Amlodipine Besylate (Amlodipine Besylate 5 Mg Tablet) 5 mg PO DAILY [facility]; Protocol Last Admin: 10/20/23 08:49 Dose: 5 mg Documented By: NAVNEET Aspirin (Aspirin 81 Mg Tab.Chew) 81 mg PO DAILY [facility] Last Admin: 10/20/23 08:49 Dose: 81 mg Documented By: NAVNEET Atorvastatin Calcium (Atorvastatin Calcium 80 Mg Tablet) 80 mg PO DAILY [facility] Last Admin: 10/20/23 08:48 Dose: 80 mg Documented By: NAVNEET Bupropion HCl (Bupropion Hcl Xl 150 Mg Tab.Er.24h) 150 mg PO BEDTIME [facility] Last Admin: 10/20/23 21:12 Dose: 150 mg Documented By: ROSAURA Cyclobenzaprine HCl (Cyclobenzaprine Hcl 10 Mg Tablet) 10 mg PO TID PRN PRN Reason: muscle spasm Last Admin: 10/20/23 21:12 Dose: 10 mg Documented By: ROSAURA Escitalopram Oxalate (Escitalopram Oxalate 10 Mg Tablet) 5 mg PO DAILY [facility] Last Admin: 10/20/23 08:48 Dose: 5 mg Documented By: NAVNEET Gabapentin (Gabapentin 300 Mg Capsule) 300 mg PO DAILY [facility] Last Admin: 10/20/23 08:48 Dose: 300 mg Documented By: NAVNEET Gabapentin (Gabapentin 300 Mg Capsule) 900 mg PO BEDTIME [facility] Glucose (Glucose Gel 15 Gm Gel..Gram.) 15 gm PO Q15M PRN; Protocol PRN Reason: per Hypoglycemia Standing Ord. Glucose (Glucose Gel 15 Gm Gel..Gram.) 15 gm PO Q15M PRN; Protocol PRN Reason: per Hypoglycemia Standing Ord. Guaifenesin/Dextromethorphan (Guaifenesin Dm 600/30 1 Tab Tab.Er.12h) 2 tab PO BID [facility] Last Admin: 10/20/23 21:11 Dose: 2 tab Documented By: ROSAURA Heparin Sodium (Porcine) (Heparin Sodium,Porcine 5,000 Unit/Ml Vial) 5,000 unit SUBCUT Q8H [facility] Last Admin: 10/21/23 00:05 Dose: 5,000 unit Documented By: ROSAURA Hydroxyzine HCl (Hydroxyzine Hcl 25 Mg Tablet) 25 mg PO BEDTIME [facility] Last Admin: 10/20/23 21:12 Dose: 25 mg Documented By: ROSAURA Dextrose (D10) 250 mls @ 750 mls/hr IV Q15M PRN; Protocol PRN Reason: per Hypoglycemia Standing Ord. Dextrose (D10) 250 mls @ 750 mls/hr IV Q15M PRN; Protocol PRN Reason: per Hypoglycemia Standing Ord. Insulin Glargine (Insulin Glargine,Hum.Rec.Anlog 100 Unit/Ml 10 Ml Vial) 10 unit SUBCUT BID [facility] Last Admin: 10/20/23 20:09 Dose: 10 unit Documented By: KATE Insulin Human Lispro (Insulin Lispro 100 Unit/Ml 3 Ml Vial) 0 unit SUBCUT QIDACHS [facility]; Protocol Last Admin: 10/20/23 20:08 Dose: 8 unit Documented By: KTAE Lisinopril (Lisinopril 5 Mg Tablet) 5 mg PO DAILY [facility]; Protocol Lorazepam (Lorazepam 0.5 Mg Tablet) 0.25 mg PO Q8H PRN PRN Reason: Anxiety Last Admin: 10/20/23 21:12 Dose: 0.25 mg Documented By: ROSAURA Methylprednisolone Sodium Succinate (Methylprednisolone Sod Succ 40 Mg/Ml Vial) 40 mg IVPUSH Q8H [facility] Last Admin: 10/21/23 03:23 Dose: 40 mg Documented By: ROSAURA Montelukast Sodium (Montelukast Sodium 10 Mg Tablet) 10 mg PO DAILY [facility] Last Admin: 10/20/23 08:49 Dose: 10 mg Documented By: NAVNEET Pramipexole Dihydrochloride (Pramipexole Di-Hcl 0.25 Mg Tablet) 0.5 mg PO TID [facility] Last Admin: 10/20/23 21:12 Dose: 0.5 mg Documented By: ROSAURA Ropinirole HCl (Ropinirole Hcl 2 Mg Tablet) 2 mg PO BID [facility] Last Admin: 10/20/23 21:12 Dose: 2 mg Documented By: ROSAURA Sodium Chloride (0.9 % Sodium Chloride Flush 3 Ml Syringe) 3 ml IVFLUSH QSHIFT [facility] Last Admin: 10/20/23 21:13 Dose: 3 ml Documented By: ROSAURA Trazodone HCl (Trazodone Hcl 100 Mg Tablet) 200 mg PO BEDTIME [facility] Last Admin: 10/20/23 21:12 Dose: 200 mg Documented By: ROSAURA Labs 10/18/23 06:06 10/18/23 06:06 Labs: Laboratory Results - last 24 hr 10/20/23 10/20/23 10/20/23 08:15 12:01 15:35 POC Glucose 307 H 297 H 360 H* 10/20/23 10/21/23 20:00 07:02 POC Glucose 350 H* 397 H* Assessment and Plan (1) COPD (chronic obstructive pulmonary disease): Status: Acute Plan 73-year-old woman admitted with acute COPD exacerbation Acute COPD exacerbation Continue supplemental oxygen to keep oxygen saturation greater than 90% Scheduled steroids and DuoNebs UTI Ceftriaxone stopped urine cx negative AGUSTIN on CKD stage 3 Mild Hold lisinopril Gentle IV hydration Diabetes mellitus type 2 Sliding scale, ADA diet Hypertension Continue Norvasc, hold lisinopril due to AGUSTIN Hyperlipidemia Continue statin Mental health Continue home medications Restless leg syndrome Continue pramipexole Obstructive sleep apnea CPAP at bedtime Normocytic anemia Stable CBC Morbid obesity. BMI 43.1 Discussed importance of weight management as this may be contributing to worsening of other comorbidities DVT prophylaxis with heparin Attending Dr. Tang Full code continue hospital stay for treatment of CMV exacerbation requiring scheduled IV steroids, scheduled DuoNeb treatments and oxygen Quality Stroke Does the patient have a stroke diagnosis?: No VTE Prior VTE?: No VTE Risk Level:: Medical - moderate - high VTE Device Contraindication: Treatment Not Indicated VTE Drug Contraindication: N/A - Med Ordered
[2023-10-21 07:34] LABS: Anion Gap 14 (12-20); Blood Urea Nitrogen 34 mg/dL (9-16); Calcium 8.5 mg/dL (8.4-10.2); Carbon Dioxide 28 mmol/L (22-29); Chloride 100 mmol/L (96-108); Creatinine Clr Calc Pharmacy 36.8; Estimated Glomerular Filt Rate 35; Glucose Random 426 mg/dL (60-115); Potassium 4.9 mmol/L (3.3-5.1); Sodium 137 mmol/L (135-145)
[2023-10-21] MEDS: Albuterol/Iprat 2.5/0.5MG 3 ML AMPUL.NEB INHALE ×2 (07:37→11:12)
[2023-10-21 07:39] VITALS: PULSE 83; RESP 20; O2SAT 94
[2023-10-21] MEDS: 0.9 % Sodium Chloride Flush 3 ML SYRINGE IVFLUSH (08:11)
[2023-10-21] MEDS: Insulin Glargine,Hum.rec.anlog 100 UNIT/ML 10 ML VIAL 10 UNIT SUBCUT (08:11)
--- NOTE | 2023-10-21 08:11 | PM.DS ---
DS: Providers Provider Date of Service: 10/21/23 Date of admission: 10/18/23 00:54 Primary care physician: Shelbi Perez MD Consults: 10/17/23 22:57 Consult to Infectious Diseases Routine Consulting Provider: [facility] [place] Infectious Disease Reason for consultation: uti DS: Diagnosis Discharge Diagnosis (1) COPD (chronic obstructive pulmonary disease): Status: Acute DS: Summary Hospital Course Hospital Course: History and physical as per admitting provider. Mine Peacock is 73 years old woman with past medical history significant for COPD -on home O2 2 L/Min, CKD, chronic anemia, morbid obesity, hyperlipidemia, obstructive sleep apnea, recurrent UTIs and type 2 diabetes mellitus presents to the emergency department complaining of worsening shortness of breath productive cough over the last several days. She also complained of right flank pain and discomfort with urination. Denies blood in urine. She denied any headache, sore throat, nausea, vomiting or diarrhea. Denies fever or chills. She denied alcohol abuse, tobacco smoking or illicit drug use. In the ED, she was found to have tachycardia and tachypnea. She is currently requiring 2 liters/minute supplemental oxygen which is her baseline. Blood workup showed no leukocytosis. Hemoglobin is at baseline. Platelets are normal. Creatinine is 1.44 (1.2). There are no significant electrolyte imbalances. LFTs are normal. BNP and troponin are negative. Urinalysis consistent with urinary tract infection. Abdomen pelvis CT scan showed no acute process. CXR is negative. ED tx: Acetaminophen 650 mg p.o., NS 500 mg IV, Solu-Medrol 125 mg IV, ceftriaxone 1 g IV, ertapenem 1 g IV, Mucinex 600 mg p.o. 73-year-old woman treated acute COPD exacerbation. Treated with supplemental oxygen, scheduled steroids and DuoNebs. Initially thought to have UTI but urine culture was negative so ceftriaxone was stopped. She did have mild AGUSTIN on CKD stage 3. Her lisinopril was held and she received gentle IV hydration. Creatinine back down close to her baseline. Her blood sugars were elevated secondary to steroid use. She may have to adjust her insulin at home. Plan is for discharge home with steroid taper. Diabetes mellitus type 2. Continue home medications Hypertension. Continue Norvasc, lisinopril Hyperlipidemia. Continue statin Mental health. Continue home medications Restless leg syndrome. Continue pramipexole Obstructive sleep apnea. CPAP at night Normocytic anemia. Stable CBC, remained above transfusion threshold Morbid obesity. BMI 43.1. Discussed importance of weight management as this may be contributing to worsening of other comorbidities Time Attestation Discharge Coordination Time (in mins): 32 Quality: Safe Use of Opioids Does Pt have an Active Cancer Diagnosis on the Problem List?: No Quality: Stroke Does the patient have a stroke diagnosis?: No Physical Exam Vital Signs: Vital Signs: Last Vital Signs Temp 98 F 10/21/23 07:12 Pulse 83 10/21/23 07:39 Resp 20 10/21/23 07:39 BP 146/70 H 10/21/23 07:12 Pulse Ox 93 10/21/23 07:12 O2 Del Method Nasal Cannula 10/21/23 07:12 O2 Flow Rate 2 10/21/23 07:12 Oxygen Flow Rate 2 10/17/23 20:37 BMI result Body Mass Index 43.8 Appearing in no acute distress head is normocephalic atraumatic eyes pupils are PERRLA sclera is anicteric mouth throat mucous membranes are intact and moist neck is supple no lymphadenopathy, no JVD noted lung sounds are clear to auscultation, ild exp wheezing heart regular rate rhythm, clear S1, S2 positive bowel sounds, abdomen is soft, nontender neuro patient is alert x3, no focal deficits DS: Data Data Completed and Pending Completed studies during hospitalization [Text1]: Procedures Insertion of Infusion Device into Superior Vena Cava, Percutaneous Approach (09/02/23) Insertion of Tunneled Vascular Access Device into Chest Subcutaneous Tissue and Fascia, Percutaneous Approach (09/02/23) Replacement of Left Knee Joint with Synthetic Substitute, Uncemented, Open Approach (05/28/20) Ultrasonography of Superior Vena Cava, Guidance (09/02/23) Labs on day of discharge: Laboratory Results - last 24 hr 10/20/23 10/20/23 10/20/23 08:15 12:01 15:35 Hold Purple Top Sodium Potassium Chloride Carbon Dioxide Anion Gap BUN Creatinine Estim Creat Clear Calc Estimated GFR POC Glucose 307 H 297 H 360 H* Random Glucose Calcium 10/20/23 10/21/23 10/21/23 20:00 07:02 07:07 Hold Purple Top SEE NOTE Sodium 137 Potassium 4.9 Chloride 100 Carbon Dioxide 28 Anion Gap 14 BUN 34 H Creatinine 1.46 H Estim Creat Clear Calc 36.8 Estimated GFR 35 POC Glucose 350 H* 397 H* Random Glucose 426 H* Calcium 8.5 Preliminary micro results at discharge 10/17/23 21:10 Blood Culture - Preliminary Blood - Venous No growth after 48 hours. 10/17/23 21:10 Blood Culture - Preliminary Blood - Venous No growth after 48 hours. Discharge Plan Discharge Anticipated Discharge Date/Time: 10/21/23 12:02 Patient Disposition: Home Health Service Discharge Diagnosis: COPD exacerbation AGUSTIN on CKD stage 3 Referrals: Jasen ALLISON [Outside] - 3-5 Days (Resume [facility] services) Shelbi Perez MD [Primary Care Provider] - 1 Week Discharge Medications: New prednisone 10 mg tablet See Taper PO DIRECTED Qty: 30 0RF Taper: Prednisone 40 mg daily for 3 Days and 0 Hour 30 mg daily for 3 Days and 0 Hour 20 mg daily for 3 Days and 0 Hour 10 mg daily for 3 Days and 0 Hour Rx Instructions: see taper instructions lorazepam 0.5 mg tablet 0.5 mg PO DAILY PRN (Reason: anxiety) Qty: 7 0RF Continued (DME) lancets 28 gauge misc See Rx Instructions topical TID Qty: 100 3RF Rx Instructions: once a day (DME) FreeStyle Lite Strips Strip See Rx Instructions .Route Rx Instructions: Use to check blood sugar twice daily and when having symptoms of hypo/hyperglycemia (DME) diaper,brief,adult,disposable Misc See Rx Instructions .Route Qty: 64 5RF Rx Instructions: Use for stress incontinence (DME) lancets [OneTouch Delica Lancets] 30 gauge misc See Rx Instructions .Route Qty: 100 2RF Rx Instructions: Use to check blood sugar twice daily and when having symptoms of hypo/hyperglycemia (DME) blood-glucose meter [OneTouch Ultra2 Meter] Misc See Rx Instructions .Route Qty: 1 0RF Rx Instructions: Use to check blood sugar twice daily and when having symptoms of hypo/hyperglycemia (DME) pen needle, diabetic [BD Ultra-Fine Mini Pen Needle] 31 gauge x 3/16 needle See Rx Instructions .Route Qty: 100 2RF Rx Instructions: Use to administer insulin twice daily (DME) walker Misc See Rx Instructions .Route Qty: 1 0RF Rx Instructions: Wheeled walker with seat and brakes (DME) Shower Chair Misc See Rx Instructions .Route Qty: 1 0RF Rx Instructions: Shower chair with back and arm rests montelukast 10 mg tablet 10 mg PO DAILY Qty: 90 1RF (DME) diaper,brief,adult,disposable Misc See Rx Instructions .Route Qty: 200 5RF Rx Instructions: Size medium pull up briefs (DME) OneTouch Ultra Test Strip See Rx Instructions .Route Qty: 100 2RF Rx Instructions: Use to check blood sugar twice daily and when having symptoms of hypo/hyperglycemia albuterol sulfate 2.5 mg /3 mL (0.083 %) solution for nebulization 2.5 mg inhalation Q4-6H PRN (Reason: shortness of breath or wheezing) Qty: 75 0RF amlodipine [Norvasc] 5 mg tablet 5 mg PO DAILY 30 Days Qty: 90 0RF lisinopril 5 mg tablet 5 mg PO DAILY Qty: 90 0RF insulin aspart U-100 [Novolog FlexPen U-100 Insulin] 100 unit/mL (3 mL) insulin pen See Protocol subcut TID Qty: 30 0RF Protocol: Insulin Correction Scale Less than or equal to 110 ---- Give (units): 0 111 to 150 Give (units): 0 151 to 200 Give (units): 2 201 to 250 Give (units): 4 251 to 300 Give (units): 6 301 to 350 Give (units): 8 Greater than 350 Give (units): 10 Call MD if Blood Glucose > : 350 Rx Instructions: Up to 10 units before each meal according to sliding scale atorvastatin 80 mg tablet 80 mg PO DAILY 90 Days Qty: 90 0RF (DME) AeroEclipse II Nebulizer Misc See Rx Instructions .ROUTE .MEDSUPPLY Qty: 1 0RF Rx Instructions: As directed hydroxyzine pamoate 25 mg capsule 25 mg PO BEDTIME trazodone 100 mg tablet 200 mg PO BEDTIME aspirin 81 mg Tablet,Chewable 81 mg PO DAILY cholecalciferol (vitamin D3) 25 mcg (1,000 unit) Capsule 25 mcg PO DAILY Levemir FlexPen 100 unit/mL (3 mL) insulin pen 20 unit subcut BEDTIME Levemir FlexPen 100 unit/mL (3 mL) insulin pen 15 unit subcut DAILY multivitamin Tablet 1 tab PO DAILY citalopram 10 mg tablet 10 mg PO DAILY gabapentin 300 mg capsule 300 mg PO DAILY albuterol sulfate [ProAir HFA] 90 mcg/actuation HFA aerosol inhaler 2 puff inhalation Q4H PRN (Reason: shortness of breath or wheezing) gabapentin 300 mg Capsule 900 mg PO BEDTIME pramipexole 0.5 mg tablet 0.5 mg PO TID ropinirole 2 mg tablet 2 mg PO BID cyclobenzaprine 10 mg tablet 10 mg PO TID PRN (Reason: muscle spasm) 7 Days Qty: 20 0RF (DME) pen needle, diabetic 31 gauge x 3/16 needle See Rx Instructions subcut TID Qty: 1200 1RF Rx Instructions: 4x a day bupropion HCl 150 mg tablet extended release 24 hr 150 mg PO BEDTIME (DME) oxygen-air delivery systems Device See Rx Instructions .ROUTE .MEDSUPPLY Qty: 1 Rx Instructions: As directed Discharge Orders: Discharge Order (Routine); Ordered 10/21/23 Ordered By: Rebecca Calloway Diet: Advance to usual diet Activity on Discharge: As tolerated Stand Alone Forms: Patient Portal Discharge page Print Language: Hungarian Care Plan Goals: Complete prednisone taper Health Concerns: COPD exacerbation AGUSTIN on CKD stage 3 Plan of Treatment: Follow-up with primary care provider as needed Take medications as prescribed Assessment: See discharge summary
[2023-10-21] MEDS: Cyclobenzaprine HCl 10 MG TABLET PO (08:12)
[2023-10-21] MEDS: Insulin Lispro 100 UNIT/ML 3 ML VIAL SUBCUT ×4 (08:12→12:01)
[2023-10-21] MEDS: rOPINIRole HCL 2 MG TABLET PO (08:12)
[2023-10-21] MEDS: guaiFENesin DM 600/30 1 TAB TAB.ER.12H 2 TAB PO (08:12)
[2023-10-21] MEDS: Aspirin 81 MG TAB.CHEW PO (08:12)
[2023-10-21] MEDS: Pramipexole Di-HCL 0.25 MG TABLET 0.5 MG PO (08:12)
[2023-10-21] MEDS: Atorvastatin Calcium 80 MG TABLET PO (08:13)
[2023-10-21] MEDS: Gabapentin 300 MG CAPSULE PO (08:13)
[2023-10-21] MEDS: Montelukast Sodium 10 MG TABLET PO (08:13)
[2023-10-21] MEDS: Acetaminophen 325 MG TABLET 975 MG PO (08:13)
[2023-10-21] MEDS: Escitalopram Oxalate 10 MG TABLET 5 MG PO (08:13)
[2023-10-21] MEDS: LORazepam 0.5 MG TABLET 0.25 MG PO (08:13)
[2023-10-21] MEDS: amLODIPine Besylate 5 MG TABLET PO (08:14)
--- NOTE | 2023-10-21 10:29 | MHC.CM.PN ---
Addendum entered by Niki Mendoza RN 10/21/23 10:30: IMM was delivered 10/18 Original Note: EMR reviewed. Per MD rounds patient is medically cleared to return home and resume services: [facility], [employer] (son) through [employer]. Son will provide transportation home at approx 1pm. RN aware.
[2023-10-21 11:14] VITALS: PULSE 82; RESP 18; O2SAT 94
[2023-10-21 11:36] LABS: Glucose, Whole Blood 271 mg/dL (60-115)
== END 2023-10-21 12:51 | disposition home health service (06) | DRG 191 ==
LOC: HO.ED 23:56 → HO.EDOVER 10-18 01:01 → HO.IMC 10-19 07:31 → HO.S3 10-20 19:42
PROVIDERS: Physician Assistant Medical; Admitting Provider Internal Medicine; Emergency Provider Emergency Medicine Emergency Medical Services; PCP Internal Medicine; Visit Provider Nurse Practitioner Acute Care
DX: J44.1 Chronic obstructive pulmonary disease with (acute) exacerbation (principal); N17.9 Acute kidney failure, unspecified; Z68.41 Body mass index [BMI] 40.0-44.9, adult; I12.9 Hypertensive chronic kidney disease with stage 1 through stage 4 chronic kidney disease, or unspecified chronic kidney disease; G25.81 Restless legs syndrome; E11.65 Type 2 diabetes mellitus with hyperglycemia; E11.22 Type 2 diabetes mellitus with diabetic chronic kidney disease; F33.41 Major depressive disorder, recurrent, in partial remission; N18.30 Chronic kidney disease, stage 3 unspecified; E78.5 Hyperlipidemia, unspecified; G47.33 Obstructive sleep apnea (adult) (pediatric); D63.1 Anemia in chronic kidney disease; Z99.81 Dependence on supplemental oxygen; E66.01 Morbid (severe) obesity due to excess calories; Z20.822 Contact with and (suspected) exposure to COVID-19; Z87.440 Personal history of urinary (tract) infections; Z79.4 Long term (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 insulin; Z79.82 Long term (current) use of aspirin; Z79.899 Other long term (current) drug therapy
CPT/HCPCS: 0241U; 36415; 71045; 74176; 80048; 80076; 81001; 82803; 82947; 83605; 83735; 83880; 84484; 85025; 87040; 87086; 93005; 94640; 97161; 99285; J0696; J1170; J1335; J1644; J2919; J2920; J2930; J7120

== ENCOUNTER → 2023-10-17 20:51 | Outpatient (BNV) | payer OTHER, SELFPAY | PROVIDERS: Admitting Provider Internal Medicine; Emergency Provider Emergency Medicine Emergency Medical Services; PCP Internal Medicine; Visit Provider Internal Medicine Cardiovascular Disease | DX: R06.00 Dyspnea, unspecified (principal) | CPT/HCPCS: 93010 ==

== ENCOUNTER → 2023-10-18 00:54 | Outpatient (BNV) | payer OTHER, SELFPAY | PROVIDERS: Admitting Provider Internal Medicine; Emergency Provider Emergency Medicine Emergency Medical Services; PCP Internal Medicine; Visit Provider Internal Medicine | DX: J44.1 Chronic obstructive pulmonary disease with (acute) exacerbation (principal) | CPT/HCPCS: 99223; 99232; 99239; 99499 ==

== ENCOUNTER → 2023-10-18 00:54 | Outpatient (BNV) | payer OTHER, SELFPAY | PROVIDERS: Admitting Provider Internal Medicine; Emergency Provider Emergency Medicine Emergency Medical Services; PCP Internal Medicine; Visit Provider Internal Medicine | DX: J44.1 Chronic obstructive pulmonary disease with (acute) exacerbation (principal) | CPT/HCPCS: 99222 ==

== ENCOUNTER 2023-10-27 10:46 | Outpatient (AMB) | payer MEDICARE, SELFPAY ==
--- NOTE | 2023-10-27 10:48 | HO.NEPHOV ---
HPI HPI Comments History of Present Illness Details 73-year-old woman with hypertension, hyperlipidemia, diabetes mellitus, GERD, osteoarthritis, CKD3, osteo chondroma left femur history of COPD on 2 L of oxygen, history of obstructive sleep apnea on CPAP. h/o CKD 3 : Baseline creatinine of 1.5 h/o few episodes of AGUSTIN - mostly due to hypoperfusion and resolved Recently had UTI with E.Coli and treated with Bactrim x 3 days Blood sugar has been elevated; A1C was 9.9% Trulicity has been prescribed but she has not started yet due to insurance issues 10/27/23 UTI in Aug treated with antibiotics Now on prednisone for COPD Blood sugar is elevated and has polyuria PFSH Medical History Dysuria Kidney stone on left side Diabetes 1.5, managed as type 1 Recurrent UTI COPD (chronic obstructive pulmonary disease) Respiratory failure with hypoxia Urinary tract infection Hypoxemia Morbid obesity CKD (chronic kidney disease) Anemia COPD exacerbation Allergic rhinitis ALDO (obstructive sleep apnea) Obesity (BMI 30-39.9) Constipation due to opioid therapy Osteoarthritis of left knee Hx SBO Hyperlipidemia CPAP (continuous positive airway pressure) dependence History of adrenal adenoma Osteochondroma of left femur Arthritis Diabetes Elevated cholesterol History of restless legs syndrome History of diverticulitis GERD (gastroesophageal reflux disease) Surgical History H/O excision of mass History of oophorectomy History of cholecystectomy History of appendectomy History of arthroscopy of left knee History of partial colectomy Hx of cataract extraction H/O exploratory laparotomy H/O colonoscopy History of surgery History of hysterectomy Family History Father HTN (hypertension) Diabetes mellitus Mother HTN (hypertension) Liver cancer Social History 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: Other 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 Other:: ex- has been staying over Housing: House Are you a primary career orientation teacher to a significant other at home: No Do you presently have visiting nurse or other home services: Yes Unable to assess alcohol history related to: Unknown Alcohol intake: never Comment: PT SLEEPING Patient Tobacco Use Status: Never used Tobacco e-Cigarette/Vaping Use: Never Used Second Hand Smoke Exposure: No Advance Directives Date on File: 10/19/23 service: No Current occupational status: retired Cognitive needs: No Hearing needs: No Vision needs: No Female Reproductive History Menstrual Age of Menarche: 13 Vital Signs 10/27/23 10:50 Height 5 ft Weight 214 lb BMI 41.8 BP 128/54 L Blood Pressure Location Lt brachial Position Sitting Pulse 113 H Pulse Source Pulse Oximeter Pulse Oximetry (%) 89 L Oxygen Delivery Method Room Air Physical Exam Vital Signs: Last Vital Signs Pulse 113 H 10/27/23 10:50 BP 128/54 L 10/27/23 10:50 Pulse Ox 89 L 10/27/23 10:50 Oxygen Delivery Method Room Air 10/27/23 10:50 BMI result Body Mass Index 41.8 Const General: comfortable Nutritional Appearance: well nourished and obese Orientation/consciousness: patient oriented x3 HEENT Head: No normal to inspection Mouth: moist mucous membranes Neck Neck: Yes supple and Yes no JVD Resp Auscultation: clear to auscultation bilaterally, no rales and rub present Cardio Jugular venous distension: no JVD Palpation: no palpable S3 and no palpable S4 Heart sounds: no rubs GI Palpation (GI): Soft to palpation and nontender Percussion: No Fluid wave present General: Yes no CVA tenderness Back/Spine/Pelvis Back: no CVA tenderness Skin General skin exam: no rashes or lesions noted Neuro General: patient oriented x3 Extrem General: Yes no pedal edema and No clubbing Assessment & Plan Assessment & Plan (1) CKD (chronic kidney disease): Code(s): N18.9 - Chronic kidney disease, unspecified Qualifiers: Chronic kidney disease stage: stage 3 (moderate) Chronic kidney disease stage 3 subtype: stage 3b (GFR 30-44) Qualified Code(s): N18.32 - Chronic kidney disease, stage 3b Plan: Due to Hypertensive diabetic kidney disease Urine sediments are balnd- NO reason to suspect AGN/AiN Obstruction unlikely based on recent CT scan Creatinine is close to baseline Goal is to slow the progression of kidney disease Contine to avoid nephrotoxins including NSAIDS - Discussed with Mine Avoid Hypotension and maintain BP < 130/80 Optimize blood sugar Continue ACEi for renal protection Would benefit from SGLT-2 inhibitor Needs weight loss (2) Morbid obesity: Code(s): E66.01 - Morbid (severe) obesity due to excess calories Plan: Discussed weight loss (3) Anemia: Code(s): D64.9 - Anemia, unspecified Qualifiers: Anemia type: due to chronic kidney disease Chronic kidney disease stage: stage 3 (moderate) Chronic kidney disease stage 3 subtype: stage 3a (GFR 45-59) Qualified Code(s): N18.31 - Chronic kidney disease, stage 3a; D63.1 - Anemia in chronic kidney disease Plan: Multifactorial No indication for Epogen Orders: Orders Basic Metabolic Panel 3 Months N18.32 - Chronic kidney disease, stage 3b Coding Level of Care Code Est Pt Level 4 (79240) Diagnoses Stage 3b chronic kidney disease N18.32 Chronic kidney disease stage: stage 3 (moderate) Chronic kidney disease stage 3 subtype: stage 3b (GFR 30-44) Morbid obesity E66.01 Anemia due to stage 3a chronic kidney disease N18.31; D63.1 Anemia type: due to chronic kidney disease Chronic kidney disease stage: stage 3 (moderate) Chronic kidney disease stage 3 subtype: stage 3a (GFR 45-59) Results Reviewed Nephrology Results: Hgb 11.7 g/dl (12.0-16.0) L 10/18/23 WBC 9.9 X10*3/uL (4.8-10.8) 10/18/23 Plt Count 193 X10*3/uL (160-400) 10/18/23 Sodium 137 mmol/L (135-145) 10/21/23 Potassium 4.9 mmol/L (3.3-5.1) 10/21/23 Chloride 100 mmol/L (96-108) 10/21/23 Carbon Dioxide 28 mmol/L (22-29) 10/21/23 BUN 34 mg/dL (9-16) H 10/21/23 Creatinine 1.46 mg/dL (0.5-1.4) H 10/21/23 Calcium 8.5 mg/dL (8.4-10.2) 10/21/23 Urine Protein Negative mg/dL (Neg-Trace) 10/17/23
[2023-10-27 10:50] VITALS: BP 128/54; PULSE 113; O2SAT 89; BMI 41.8
== END 2023-10-27 11:07 | disposition home or self-care (01) ==
PROVIDERS: PCP Internal Medicine; Visit Provider Internal Medicine Hypertension Specialist
DX: N18.32 Chronic kidney disease, stage 3b (principal); E66.01 Morbid (severe) obesity due to excess calories; N18.31 Chronic kidney disease, stage 3a; D63.1 Anemia in chronic kidney disease
CPT/HCPCS: 99214

== ENCOUNTER → 2023-10-27 10:46 | Outpatient (BNVA) | payer MEDICARE, SELFPAY | PROVIDERS: PCP Internal Medicine; Visit Provider Internal Medicine Hypertension Specialist | DX: N18.32 Chronic kidney disease, stage 3b (principal); D63.1 Anemia in chronic kidney disease; E66.01 Morbid (severe) obesity due to excess calories | CPT/HCPCS: 99212 ==

== ENCOUNTER 2023-11-29 15:00 | Inpatient (IN) | payer OTHER, SELFPAY ==
--- NOTE | ~2023-11-29 | CT_ITS ---
EXAMINATION: CT ABDOMEN AND PELVIS WITHOUT CONTRAST CLINICAL INFORMATION: Flank pain. Urinary frequency, sepsis COMPARISON: CT abdomen pelvis 10/01/[address] scans of the abdomen and pelvis dating back to 10/18/2016 TECHNIQUE: Multidetector volumetric imaging was performed from the superior aspect of the liver through the pubic symphysis. Sagittal and coronal reformatted images were obtained on the technologist's workstation. This CT examination was performed using dose optimization techniques as appropriate, variously including the following: *Automated exposure control *Adjustment of mA and/or kV according to patient size (this includes techniques or standardized protocols for targeted exams where dose is matched to indication/reason for exam; i.e. extremities or head) *Use of iterative reconstruction technique DLP: 1186 mGy-cm FINDINGS: LUNG BASES: The visualized lung bases are unremarkable aside from bibasilar atelectasis.. LIVER, GALLBLADDER, AND BILIARY TREE: The liver is enlarged measuring 21.2 cm greatest cephalocaudad dimension. Normal shape and attenuation. No focal hepatic lesion or biliary ductal dilatation is present. Gallbladder is contracted but otherwise unremarkable. PANCREAS: Unremarkable. SPLEEN: Unremarkable. ADRENAL GLANDS: Unremarkable. KIDNEYS AND URETERS: The kidneys are normal in size, shape, and attenuation. 6 mm left lower pole renal calculus is present which measures 622 Hounsfield units and is 15.3 cm from the posterior axillary line. No hydronephrosis, hydroureter, or other calculi seen. No perinephric stranding. BLADDER: Unremarkable. GASTROINTESTINAL TRACT: Rectal anastomosis is present which is widely patent. There are colonic diverticula seen without evidence of diverticulitis The small and large bowel are unremarkable. The appendix is not seen but there is no evidence of appendicitis evidence of appendicitis. ABDOMINAL WALL: No significant hernia is appreciated. LYMPH NODES: No retroperitoneal lymphadenopathy. VASCULAR: Unremarkable. PELVIC VISCERA: The uterus is not seen. An abnormal adnexal mass is not detected. No free intraperitoneal fluid is present. OSSEOUS STRUCTURES: Mild degenerative changes are seen in the spine most marked at L5-S1.. Deformity left femoral neck could be secondary to degenerative changes along with an osteochondral, unchanged dating back to at least 2016 CT/CT abdomen pelvis wo IV con IMPRESSION: 1. A cause for the patient's flank pain and sepsis has not been found. 2. Incidental note made of enlarged liver, nonobstructing 6 mm left lower pole renal calculus, rectal anastomosis, colonic diverticulosis without diverticulitis and degenerative changes in the spine. Fleischner guidelines were followed.
--- NOTE | ~2023-11-29 | XR_ITS ---
EXAMINATION: XR CHEST CLINICAL INFORMATION: Sepsis COMPARISON: Chest radiograph 10/17/2023 CT abdomen pelvis earlier today as well as on 10/17/2023 TECHNIQUE: 2 views of the chest were obtained. FINDINGS: No significant abnormality is noted involving the heart, lungs, mediastinum, bony thorax or soft tissues. Previously seen ill-defined patchy densities left midlung and right lung base are no longer seen. XR/XR chest 2V IMPRESSION: Unremarkable examination. Previously seen patchy densities in the lower lungs have resolved.
--- NOTE | 2023-11-29 15:13 | ED.GENADULT ---
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 States she was recently at [facility], admitted for less than 24 hours, and now recalls that she was discharged home on antibiotics for a UTI. She deneis cough or fevers but does complain of increased shortness of breath, as well as lower extremity swelling. States she is also currently on furosemide. Denies chest pain or palpitations. States that when she was here previously she was told she had a kidney stone. MD complaint: Urinary frequency, dysuria, shortness of breath Onset (ago): day(s) Location: abdomen Radiation: back Severity: moderate Quality: aching Pain Consistency: constant Relieving factors: rest Exacerbating factors: movement Associated symptoms: shortness of breath and other Treatments prior to arrival: other Related Data Home Medications ?Medication ?Instructions ?Recorded ?Confirmed bupropion HCl 150 mg 24 hr tablet, 150 mg PO BEDTIME 04/25/20 10/18/23 extended release oxygen-air delivery systems ##1 04/25/20 10/15/23 aspirin 81 mg chewable tablet 81 mg PO DAILY 10/01/21 10/18/23 trazodone 100 mg tablet 200 mg PO BEDTIME 10/01/21 10/18/23 cholecalciferol (vitamin D3) 25 25 mcg PO DAILY 01/04/22 10/18/23 mcg (1,000 unit) capsule hydroxyzine pamoate 25 mg capsule 25 mg PO BEDTIME 08/13/22 10/18/23 citalopram 10 mg tablet 10 mg PO DAILY 06/06/23 10/18/23 multivitamin 1 tab PO DAILY 06/06/23 10/18/23 albuterol sulfate 90 mcg/actuation 2 puff inhalation Q4H PRN 09/02/23 10/18/23 aerosol inhaler (ProAir HFA) shortness of breath or wheezing ropinirole 2 mg tablet 2 mg PO BID 09/02/23 10/18/23 insulin detemir U-100 100 unit/mL 20 unit subcut BEDTIME 10/18/23 10/18/23 (3 mL) subcutaneous pen (Levemir FlexPen) gabapentin 300 mg capsule 300 mg PO BEDTIME 10/27/23 gabapentin 300 mg capsule 300 mg PO BID 10/27/23 Previous Rx's ?Medication ?Instructions ?Recorded nebulizers (AeroEclipse II #1 ea 02/05/21 Nebulizer) lancets 28 gauge #100 ea 06/24/21 diaper,brief,adult,disposable #64 ea 05/06/22 lancets 30 gauge (OneTouch Delica #100 ea 09/16/22 Lancets) blood-glucose meter (OneTouch #1 ea 09/19/22 Ultra2 Meter) pen needle, diabetic 31 gauge x #100 ea 10/14/2209/25 (BD Ultra-Fine Mini Pen Needle) pen needle, diabetic 31 gauge x #1,200 ea 02/18/2309/25 walker #1 ea 05/20/23 Shower Chair #1 ea 05/27/23 montelukast 10 mg tablet 10 mg PO DAILY #90 tabs 08/06/23 cyclobenzaprine 10 mg tablet 10 mg PO TID PRN muscle spasm 7 08/28/23 days #20 tabs diaper,brief,adult,disposable #200 ea 09/07/23 amlodipine 5 mg tablet (Norvasc) 5 mg PO DAILY 30 days #90 tabs 10/09/23 atorvastatin 80 mg tablet 80 mg PO DAILY 90 days #90 tabs 10/09/23 insulin aspart U-100 100 unit/mL See Protocol subcut TID #30 mL 10/09/23 (3 mL) subcutaneous pen (Novolog FlexPen U-100 Insulin aspart) lisinopril 5 mg tablet 5 mg PO DAILY #90 tabs 10/09/23 lorazepam 0.5 mg tablet 0.5 mg PO DAILY PRN anxiety #7 tabs 10/21/23 prednisone 10 mg tablet See Taper PO DIRECTED #30 tabs 10/21/23 albuterol sulfate 2.5 mg/3 mL 2.5 mg (3 mL) inhalation Q4-6H PRN 11/03/23 (0.083 %) solution for nebulization shortness of breath or wheezing #75 mL insulin glargine 100 unit/mL (3 20 unit (0.2 mL) subcut DAILY #15 11/10/23 mL) subcutaneous pen (Lantus mL Solostar U-100 Insulin) blood sugar diagnostic (FreeStyle #100 ea 11/13/23 Lite Strips) blood sugar diagnostic (OneTouch #100 ea 11/13/23 Ultra Test strips) Allergies Allergy/AdvReac Type Severity Reaction Status Date / Time adhesive tape [ADHESIVE TAPE] Allergy Intermediate RASH Verified 11/29/23 15:17 trimethobenzamide Allergy Mild NAUSEA Verified 11/29/23 15:17 [From TIGAN] environmental Allergy Intermediate Nasal Uncoded 11/29/23 15:17 congestion Review of Systems Review of Systems: As per HPI. Yes all other systems are reviewed and are negative PMFSH Past Medical History Medical History Dysuria Kidney stone on left side Diabetes 1.5, managed as type 1 Recurrent UTI COPD (chronic obstructive pulmonary disease) Respiratory failure with hypoxia Urinary tract infection Hypoxemia Morbid obesity CKD (chronic kidney disease) Anemia COPD exacerbation Allergic rhinitis ALDO (obstructive sleep apnea) Obesity (BMI 30-39.9) Constipation due to opioid therapy Osteoarthritis of left knee Hx SBO Hyperlipidemia CPAP (continuous positive airway pressure) dependence History of adrenal adenoma Osteochondroma of left femur Arthritis Diabetes Elevated cholesterol History of restless legs syndrome History of diverticulitis GERD (gastroesophageal reflux disease) Surgical History H/O excision of mass History of oophorectomy History of cholecystectomy History of appendectomy History of arthroscopy of left knee History of partial colectomy Hx of cataract extraction H/O exploratory laparotomy H/O colonoscopy History of surgery History of hysterectomy Family History Family History Father HTN (hypertension) Diabetes mellitus Mother HTN (hypertension) Liver cancer Social History Social History 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: Other 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 Other:: ex- has been staying over Housing: House Are you a primary managed care provider to a significant other at home: No Do you presently have visiting nurse or other home services: Yes Unable to assess alcohol history related to: Unknown Alcohol intake: never Comment: PT SLEEPING Patient Tobacco Use Status: Never used Tobacco Smoked in Last 30 Days: No e-Cigarette/Vaping Use: Never Used Second Hand Smoke Exposure: No Use of substances other than those prescribed or required for medical reasons: No Advance Directives: Yes Advance Directives on File: Yes Advance Directives Date on File: 10/19/23 Nutrition Risks: No Nutritional Risk service: No Current occupational status: retired Cognitive needs: No Hearing needs: No Vision needs: No Physical Exam ED Vital Signs: Vital Signs - 24 hr 11/29/23 15:14 11/29/23 18:09 11/29/23 20:50 Temperature 98.3 F 98.1 F 98.2 F Pulse Rate 104 H 94 81 Respiratory Rate 20 18 16 Blood Pressure 125/72 136/57 L 122/53 L Pulse Oximetry 97 98 100 Oxygen Delivery Method Nasal Cannula Nasal Cannula Room Air Oxygen Flow Rate 2 1.5 BMI result Body Mass Index 46.9 Vital signs have been reviewed and appear to be correct. Blood pressure normal. Heart rate slightly tachycardic. Respiratory rate normal. Temperature normal. Oxygen saturation normal. Const General: cooperative, no acute distress and alert Nutritional Appearance: obese Orientation/consciousness: patient oriented x3 Limitations: no limitations HENMT Head: Yes normocephalic and Yes atraumatic Ears: hearing grossly normal bilaterally and external ears normal General nose exam: Normal external nose present Mouth: Normal oral and palatal mucosa present Throat: Yes uvula midline Eyes Pupils: Equal, round and reactive pupils present Neck Neck: Yes normal visual inspection and Yes supple Resp Effort & Inspection: labored Auscultation: diminished lung sounds diffuse Cardio Rate: regular rate Rhythm: regular rhythm Heart sounds: S1 normal heart sound present and S2 normal heart sound present Peripheral pulses: Peripheral pulses 2+ throughout GI Palpation (GI): Soft to palpation and nontender Auscultation: normoactive bowel sounds General: Yes CVA tenderness bilateral Back/Spine/Pelvis Back: CVA tenderness Skin General skin exam: elasticity normal and turgor normal Neuro General: patient oriented x3, tone normal, moves all extremities, no focal motor deficits, CN's II-XI intact bilaterally and deep tendon reflexes 2+ bilaterally Cranial nerves: Yes Equal, round and reactive pupils present Extrem General: Yes full ROM and Yes capillary refill normal Right lower extremity: edema Details: non-pitting Left lower extremity: edema Details: non-pitting Course Course Course Narrative: This is an RME performed by Filipe Clark CNP: Additional HPI, ROS, PE not included below will be deferred to primary provider. Patient is a 73-year-old female who presents to the emergency department for evaluation, Reports urinary frequency, using the bathroom every 5 minutes, dysuria, pain her lower abdomen into her back. She reports that she was seen [facility] 1 week ago due to urinary frequency, bilateral lower extremity edema for which she was treated with ?BiPAP, states she was diagnosed with a urinary tract infection and upon discharge reports that she was not sent with any antibiotics, nor diuretics. Plan: Labs, urinalysis Reevaluation(s) Reevaluation #1: Received call from lab, critical lactic acid 4.3, glucose 445. 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, tachycardic, WBC 17.4, patient being brought back to 22H, rocephin IV and sepsis fluid bolus ordered Time: 17:00 Medications Administered Discontinued Medications Generic Name Dose Route Start Last Admin Trade Name Freq PRN Reason Stop Dose Admin Sodium Chloride 3,265.86 mls @ 3,265.86 mls/hr 11/29/23 17:05 11/29/23 21:46 Ns 30 ml/kg infuse over 1 hr (3265.86 ml) 11/29/23 18:04 Infused IV Infusion .Q1H STA Ceftriaxone Sodium 1 gm/ 50 mls @ 100 mls/hr 11/29/23 17:05 11/29/23 18:15 Sodium Chloride IV 11/29/23 17:34 Infused ONCE ONE Infusion Vancomycin HCl 2,000 mg in 500 mls @ 250 mls/hr 11/29/23 20:37 11/29/23 20:56 Vancomycin/Ns IV 11/29/23 22:36 250 mls/hr ONCE ONE Administration Insulin Glargine 30 unit 11/29/23 21:31 11/29/23 22:05 Insulin Glargine,Hum.Rec.Anlog 100 Unit/Ml 10 Ml Vial SUBCUT 11/29/23 21:32 30 unit ONCE ONE Administration Insulin Human Lispro 5 unit 11/29/23 18:02 11/29/23 18:18 Insulin Lispro 100 Unit/Ml 3 Ml Vial SUBCUT 11/29/23 18:03 5 unit ONCE ONE Administration Ropinirole HCl 2 mg 11/29/23 21:45 11/29/23 22:05 Ropinirole Hcl 1 Mg Tablet PO 11/29/23 21:46 2 mg ONCE ONE Administration Sodium Zirconium Cyclosilicate 10 gm 11/29/23 19:38 11/29/23 19:59 Sodium Zirconium Cyclosilicate 10 Gm Powd.Pack PO 11/29/23 19:39 10 gm ONCE ONE Administration Medical Decision Making Medical Decision Making MDM Narrative: Patient is a 73-year-old female with history of T1.5DM, COPD, O2 dependent at 2lpm at baseline, recurrent UTIs, morbid obesity, CKD, anemia, ALDO on CPAP, arthritis, GERD presenting to the emergency department with complaint of urinary frequency, dysuria, lower abdominal and back pain, increasing shortness of breath. On exam patient is awake, A+Ox3, slightly tachycardic on arrival, HR improved once inside the ED, VS WNL, afebrile, normal neurological exam without focal deficits, physical exam findings as above. Given reported symptoms and physical exam findings, initial differential includes UTI/pyelonephritis, renal/ureteral calculi, obstructive uropathy, Covid, flu, RSV, pneumonia, COPD exacerbation, sepsis. Labs notable for leukocytosis with left shift, chronically elevated bicarb, slight alkalosis also consistent with baseline, slight hyperkalemia, Lokelma ordered, AGUSTIN, hyperglycemia, lactic acidosis, IV fluids and abx ordered from triage provider, BNP normal. EKG shows normal sinus rhythm. No evidence of infection on urinalysis. X-ray chest notable for no acute abnormalities, previously seen patchy densities in lower lungs have resolved. CT A/P notable for no evidence of obstructing calculi, hydronephrosis, or other cause for flank pain and sepsis. My interpretation is in agreement with the radiologist's interpretation. Review of recent discharge summary from admission at [facility] reveals that patient was admitted on 11/17 for COPD exacerbation at which time she was also diagnosed with a UTI. She was treated with IV antibiotics, and discharged home on azithromycin 500 mg for 3 days, cefpodoxime and prednisone taper. Betahydroxybutyrate added on also within normal limits. Repeat lactic of 1.5. Will admit for sepsis, admission accepted by Dr. Bolton. Differential Diagnosis Differential Diagnoses: The differential diagnosis associated with the presentation includes As per [facility] Admission/Observation Consideration of admission/observation: Escalation of care including admission/observation considered Consult Healthcare Provider Management of the patient was discussed with: Hospitalist Lab Data [facility] Lab Attestation statement: I reviewed the patient's lab results. As per [facility]. 11/29/23 16:27 11/29/23 16:27 Labs: Lab Results 11/29/23 11/29/23 11/29/23 Range/Units 16:27 16:29 17:17 WBC 17.4 H (4.8-10.8) X10*3/uL RBC 4.22 (4.20-5.50) X10*6/uL Hgb 12.1 (12.0-16.0) g/dl Hct 38.1 (37.0-47.0) % MCV 90.3 (80.0-98.0) fL MCH 28.7 (27.0-33.0) pg MCHC 31.8 (31.0-35.0) g/dl RDW 14.6 (11.0-16.0) % Plt Count 284 D (160-400) X10*3/uL MPV 12.0 (9.4-12.3) fL Immature Gran % (Auto) 0.9 H (0.0-0.4) % Neut % (Auto) 85.8 H (45-73) % Lymph % (Auto) 11.2 L (20-40) % Carlton % (Auto) 1.8 L (2-11) % Eos % (Auto) 0.1 (0-4) % Baso % (Auto) 0.2 (0-2) % Lymph # (Auto) 2.0 (1.2-4.9) X10*3/uL [place] # (Auto) 0.3 (0.1-1.2) X10*3/uL Eos # (Auto) 0.0 (0.0-0.4) X10*3/uL Baso # (Auto) 0.0 (0.0-0.2) X10*3/uL Abs Immat Gran (auto) 0.16 H (0.00-0.03) X10*3/uL Absolute Neuts (auto) 14.9 H (2.0-8.3) x10*3/uL Absolute Nucleated RBC 0.000 (0.0-0.012) X10*3/uL Nucleated RBC % (auto) 0.0 (0.0-0.2) /100WBC VBG pH (7.32-7.43) VBG pCO2 mmHg VBG pO2 mmHg VBG HCO3 (22-26) mmol/L VBG O2 Saturation % VBG Base Excess mmol/L Sodium 137 (135-145) mmol/L Potassium 5.2 H (3.3-5.1) mmol/L Chloride 94 L (96-108) mmol/L Carbon Dioxide 28 (22-29) mmol/L Anion Gap 20 (12-20) BUN 37 H (9-16) mg/dL Creatinine 1.70 H (0.5-1.4) mg/dL Estim Creat Clear Calc 32.9 Estimated GFR 29 POC Glucose 419 H* (60-115) mg/dL Random Glucose 445 H* (60-115) mg/dL Lactic Acid 4.3 H* (0.5-2.0) mmol/L Lactic Acid F/U @ 2Hr (0.5-2.0) mmol/L Calcium 9.7 D (8.4-10.2) mg/dL Total Bilirubin 0.3 (0.0-1.0) mg/dL AST 12 (5-31) U/L ALT 17 (0-31) U/L Alkaline Phosphatase 44 (39-117) U/L B-Natriuretic Peptide (<100) pg/mL Total Protein 6.8 (6.5-8.0) g/dL Albumin 3.9 (3.5-5.0) g/dL Beta-Hydroxybutyrate 0.15 (0.02-0.27) mmol/L Urine Color Yellow Urine Appearance Clear Urine pH 7.0 (5.0-9.0) Ur Specific [place] 1.020 (1.005-1.025) Urine Protein Negative (Neg-Trace) mg/dL Urine Glucose (UA) >=1000 H (Negative) mg/dL Urine Ketones Negative (Negative) mg/dL Urine Blood Negative (Negative) Urine Nitrite Negative (Negative) Ur Leukocyte Esterase Negative (Negative) Urine RBC 0-2 (0-2) /HPF Urine WBC 0-5 (0-5) /HPF Ur Squamous Epith Cells 0-2 (0-2) /HPF Urine Bacteria None Seen (None Seen) Hyaline Casts 0-2 (0-2) /LPF Influenza Type A (PCR) (Negative) Influenza Type B (PCR) (Negative) RSV RNA Qual (PCR) (Negative) SARS-CoV-2 RNA (RT-PCR) (Negative) 11/29/23 11/29/23 11/29/23 Range/Units 17:35 17:38 18:12 WBC (4.8-10.8) X10*3/uL RBC (4.20-5.50) X10*6/uL Hgb (12.0-16.0) g/dl Hct (37.0-47.0) % MCV (80.0-98.0) fL MCH (27.0-33.0) pg MCHC (31.0-35.0) g/dl RDW (11.0-16.0) % Plt Count (160-400) X10*3/uL MPV (9.4-12.3) fL Immature Gran % (Auto) (0.0-0.4) % Neut % (Auto) (45-73) % Lymph % (Auto) (20-40) % Carlton % (Auto) (2-11) % Eos % (Auto) (0-4) % Baso % (Auto) (0-2) % Lymph # (Auto) (1.2-4.9) X10*3/uL Carl[place] # (Auto) (0.1-1.2) X10*3/uL Eos # (Auto) (0.0-0.4) X10*3/uL Baso # (Auto) (0.0-0.2) X10*3/uL Abs Immat Gran (auto) (0.00-0.03) X10*3/uL Absolute Neuts (auto) (2.0-8.3) x10*3/uL Absolute Nucleated RBC (0.0-0.012) X10*3/uL Nucleated RBC % (auto) (0.0-0.2) /100WBC VBG pH 7.44 H (7.32-7.43) VBG pCO2 46 mmHg VBG pO2 74 mmHg VBG HCO3 31 H (22-26) mmol/L VBG O2 Saturation 96.0 % VBG Base Excess 6.6 mmol/L Sodium (135-145) mmol/L Potassium (3.3-5.1) mmol/L Chloride (96-108) mmol/L Carbon Dioxide (22-29) mmol/L Anion Gap (12-20) BUN (9-16) mg/dL Creatinine (0.5-1.4) mg/dL Estim Creat Clear Calc Estimated GFR POC Glucose (60-115) mg/dL Random Glucose (60-115) mg/dL Lactic Acid (0.5-2.0) mmol/L Lactic Acid F/U @ 2Hr (0.5-2.0) mmol/L Calcium (8.4-10.2) mg/dL Total Bilirubin (0.0-1.0) mg/dL AST (5-31) U/L ALT (0-31) U/L Alkaline Phosphatase (39-117) U/L B-Natriuretic Peptide < 10 (<100) pg/mL Total Protein (6.5-8.0) g/dL Albumin (3.5-5.0) g/dL Beta-Hydroxybutyrate (0.02-0.27) mmol/L Urine Color Urine Appearance Urine pH (5.0-9.0) Ur Specific [place] (1.005-1.025) Urine Protein (Neg-Trace) mg/dL Urine Glucose (UA) (Negative) mg/dL Urine Ketones (Negative) mg/dL Urine Blood (Negative) Urine Nitrite (Negative) Ur Leukocyte Esterase (Negative) Urine RBC (0-2) /HPF Urine WBC (0-5) /HPF Ur Squamous Epith Cells (0-2) /HPF Urine Bacteria (None Seen) Hyaline Casts (0-2) /LPF Influenza Type A (PCR) NEGATIVE (Negative) Influenza Type B (PCR) NEGATIVE (Negative) RSV RNA Qual (PCR) NEGATIVE (Negative) SARS-CoV-2 RNA (RT-PCR) NEGATIVE (Negative) 11/29/23 11/29/23 Range/Units 20:22 20:35 WBC (4.8-10.8) X10*3/uL RBC (4.20-5.50) X10*6/uL Hgb (12.0-16.0) g/dl Hct (37.0-47.0) % MCV (80.0-98.0) fL MCH (27.0-33.0) pg MCHC (31.0-35.0) g/dl RDW (11.0-16.0) % Plt Count (160-400) X10*3/uL MPV (9.4-12.3) fL Immature Gran % (Auto) (0.0-0.4) % Neut % (Auto) (45-73) % Lymph % (Auto) (20-40) % Carlton % (Auto) (2-11) % Eos % (Auto) (0-4) % Baso % (Auto) (0-2) % Lymph # (Auto) (1.2-4.9) X10*3/uL [place] # (Auto) (0.1-1.2) X10*3/uL Eos # (Auto) (0.0-0.4) X10*3/uL Baso # (Auto) (0.0-0.2) X10*3/uL Abs Immat Gran (auto) (0.00-0.03) X10*3/uL Absolute Neuts (auto) (2.0-8.3) x10*3/uL Absolute Nucleated RBC (0.0-0.012) X10*3/uL Nucleated RBC % (auto) (0.0-0.2) /100WBC VBG pH (7.32-7.43) VBG pCO2 mmHg VBG pO2 mmHg VBG HCO3 (22-26) mmol/L VBG O2 Saturation % VBG Base Excess mmol/L Sodium (135-145) mmol/L Potassium (3.3-5.1) mmol/L Chloride (96-108) mmol/L Carbon Dioxide (22-29) mmol/L Anion Gap (12-20) BUN (9-16) mg/dL Creatinine (0.5-1.4) mg/dL Estim Creat Clear Calc Estimated GFR POC Glucose 224 H (60-115) mg/dL Random Glucose (60-115) mg/dL Lactic Acid (0.5-2.0) mmol/L Lactic Acid F/U @ 2Hr 1.5 (0.5-2.0) mmol/L Calcium (8.4-10.2) mg/dL Total Bilirubin (0.0-1.0) mg/dL AST (5-31) U/L ALT (0-31) U/L Alkaline Phosphatase (39-117) U/L B-Natriuretic Peptide (<100) pg/mL Total Protein (6.5-8.0) g/dL Albumin (3.5-5.0) g/dL Beta-Hydroxybutyrate (0.02-0.27) mmol/L Urine Color Urine Appearance Urine pH (5.0-9.0) Ur Specific [place] (1.005-1.025) Urine Protein (Neg-Trace) mg/dL Urine Glucose (UA) (Negative) mg/dL Urine Ketones (Negative) mg/dL Urine Blood (Negative) Urine Nitrite (Negative) Ur Leukocyte Esterase (Negative) Urine RBC (0-2) /HPF Urine WBC (0-5) /HPF Ur Squamous Epith Cells (0-2) /HPF Urine Bacteria (None Seen) Hyaline Casts (0-2) /LPF Influenza Type A (PCR) (Negative) Influenza Type B (PCR) (Negative) RSV RNA Qual (PCR) (Negative) SARS-CoV-2 RNA (RT-PCR) (Negative) Independent Interpretation I performed an independent interpretation of an: EKG (normal sinus rhythm, rate 93 bpm, normal DC interval and QTc), Plain X-Ray and CT Scan Interpretation: No evidence of pneumonia on chest x-ray No evidence of renal or ureteral calculi or hydronephrosis on CT abdomen and pelvis Radiology Impression Discussion of test interpretation with radiology: I have reviewed the radiologist's reading. Radiologist Impression: XR/XR chest 2V IMPRESSION: Unremarkable examination. Previously seen patchy densities in the lower lungs have resolved. CT/CT abdomen pelvis wo IV con IMPRESSION: 1. A cause for the patient's flank pain and sepsis has not been found. 2. Incidental note made of enlarged liver, nonobstructing 6 mm left lower pole renal calculus, rectal anastomosis, colonic diverticulosis without diverticulitis and degenerative changes in the spine. Fleischner guidelines were followed. Independent Historian Clinical information obtained from an independent historian. History obtained from or confirmed by: Spouse External Record Review External record reviewed: Inpatient record, Office record and Outpatient record Prescription Management I considered prescription management with: Antibiotic Critical Care Time Critical Care Time Critical Care Time: Yes Total Critical Care Time: 60 Attestation: I have personally provided critical care time exclusive of time spent on separately billable procedures. Time includes review of lab data, radiology results, discussion with consultants, and monitoring for potential decompensation. Intervention performed as documented. Discharge Plan Discharge Clinical Impression: Sepsis, Hyperglycemia Patient Disposition: Admitted As Inpatient
[2023-11-29 15:14] VITALS: BP 125/72; PULSE 104; RESP 20; TEMP 36.8; O2SAT 97; BMI 46.9
[2023-11-29 16:38] LABS: MANUAL DIFF FLAG NO
[2023-11-29 16:39] LABS: Basophils Percent Auto 0.2 % (0-2); Eosinophils Percent Auto 0.1 % (0-4); Hematocrit 38.1 % (37.0-47.0); Hemoglobin 12.1 g/dl (12.0-16.0); Imm Gran Abs Auto 0.16 X10*3/uL (0.00-0.03); Imm Gran Pct Auto 0.9 % (0.0-0.4); Lymphocytes Percent Auto 11.2 % (20-40); Mean Corpuscular HGB Conc 31.8 g/dl (31.0-35.0); Mean Corpuscular Hemoglobin 28.7 pg (27.0-33.0); Mean Corpuscular Volume 90.3 fL (80.0-98.0); Monocytes Absolute Auto 0.3 X10*3/uL (0.1-1.2); Monocytes Percent Auto 1.8 % (2-11); Neutrophils Absolute Auto 14.9 x10*3/uL (2.0-8.3); Neutrophils Percent Auto 85.8 % (45-73); Platelet Count 284 X10*3/uL (160-400); Red Blood Count 4.22 X10*6/uL (4.20-5.50); Red Cell Distribution Width 14.6 % (11.0-16.0); White Blood Count 17.4 X10*3/uL (4.8-10.8)
[2023-11-29 16:42] LABS: Appearance Urine Clear; Color Urine Yellow; Glucose Urine UA >=1000 mg/dL (Negative); Leukocyte Esterase Urine Negative (Negative); Nitrite Urine Negative (Negative); UMIC TRIGGER UACC YES; Urine Blood Negative (Negative); Urine Ketones Negative (Negative); Urine Protein Negative (Neg-Trace)
[2023-11-29 16:57] LABS: Bacteria Urine None Seen (None Seen); Hyaline Casts Urine 0-2 /LPF (0-2); RBC Urine 0-2 /HPF (0-2); Squamous Epithelial Cell Urine 0-2 /HPF (0-2); WBC Urine 0-5 /HPF (0-5)
[2023-11-29 17:01] LABS: Lactic Acid 4.3 mmol/L (0.5-2.0)
[2023-11-29 17:03] LABS: Alanine Aminotransferase 17 U/L (0-31); Albumin Level 3.9 g/dL (3.5-5.0); Alkaline Phosphatase 44 U/L (39-117); Anion Gap 20 (12-20); Aspartate Amino Transferase 12 U/L (5-31); Bilirubin Total 0.3 mg/dL (0.0-1.0); Blood Urea Nitrogen 37 mg/dL (9-16); Calcium 9.7 mg/dL (8.4-10.2); Carbon Dioxide 28 mmol/L (22-29); Chloride 94 mmol/L (96-108); Creatinine Clr Calc Pharmacy 32.9; Estimated Glomerular Filt Rate 29; Glucose Random 445 mg/dL (60-115); Potassium 5.2 mmol/L (3.3-5.1); Sodium 137 mmol/L (135-145); Total Protein 6.8 g/dL (6.5-8.0)
[2023-11-29 17:24] LABS: Glucose, Whole Blood 419 mg/dL (60-115)
[2023-11-29] MEDS: cefTRIAXone sodium 1 GM in 0.9 % Sodium Chloride 50 ML IV (17:45)
[2023-11-29 17:46] LABS: VBG Base Excess 6.6 mmol/L; VBG HCO3 31 mmol/L (22-26); VBG pCO2 46 mmHg; VBG pH 7.44 (7.32-7.43); VBG pO2 74 mmHg
[2023-11-29 17:46] LABS: Venous Blood Gas Refer to POC result
--- NOTE | 2023-11-29 17:49 | ECG_ITS ---
Test Reason : ABNORMAL LABS Blood Pressure : / mmHG Vent. Rate : 093 BPM Atrial Rate : 093 BPM P-R Int : 158 ms QRS Dur : 074 ms QT Int : 350 ms P-R-T Axes : 064 021 031 degrees QTc Int : 435 ms Normal sinus rhythm Normal ECG When compared with ECG of 17-OCT-2023 21:01, No significant change was found Referred By: Niki Calvo Electronically Signed By:Isaías Denise
[2023-11-29 18:09] VITALS: BP 136/57; PULSE 94; RESP 18; TEMP 36.7; O2SAT 98
[2023-11-29] MEDS: Insulin Lispro 100 UNIT/ML 3 ML VIAL SUBCUT (18:18)
[2023-11-29 18:22] LABS: B Type Natriuretic Peptide < 10 pg/mL (<100)
[2023-11-29 18:36] LABS: Reflex Lactate? Lactic Acid Added
[2023-11-29 19:08] LABS: Influenza A PCR NEGATIVE (Negative); Influenza B PCR NEGATIVE (Negative); Resp Syncy Virus RNA Qual PCR NEGATIVE (Negative); SARS COV2 PCR INHOUSE NEGATIVE (Negative)
--- NOTE | 2023-11-29 19:49 | PC.NURSE ---
2nd lactic draw on hold until patient receives 1L, additional IV line attempted, unsuccessful. Provider made aware.
[2023-11-29] MEDS: Sodium Zirconium Cyclosilicate 10 GM POWD.PACK PO (19:59)
[2023-11-29 20:05] LABS: Beta-Hydroxybutyrate 0.15 mmol/L (0.02-0.27)
--- NOTE | 2023-11-29 20:30 | PC.NURSE ---
Third RN to attempt for IV line, provider made aware.
[2023-11-29 20:31] LABS: Glucose, Whole Blood 224 mg/dL (60-115)
[2023-11-29 20:50] VITALS: BP 122/53; PULSE 81; RESP 16; TEMP 36.8; O2SAT 100
[2023-11-29 20:53] LABS: ~Lactic Acid-LAB USE ONLY 1.5 mmol/L (0.5-2.0)
[2023-11-29] MEDS: vancomycin/NS 2,000 MG/500 ML PLAST..BAG 250 MG IV (20:56)
--- NOTE | 2023-11-29 21:26 | PC.NURSE ---
US line successfully inserted, IV fluids running via pressure bag.
--- NOTE | 2023-11-29 21:33 | P.HPHOSP_ITS ---
History of Present Illness Date of Service: 11/29/23 Attending physician on admission: Arabella Abdul Chief Complaint: Increased urinary frequency Mine Peacock is 73 years old woman with past medical history significant for COPD -on home O2 2 L/Min, CKD stage 3B, chronic anemia, morbid obesity, hyperlipidemia, obstructive sleep apnea (not using CPAP), recurrent UTIs, type 2 diabetes mellitus a recent hospitalization at [facility] for COPD exacerbation presents to the emergency department complaining of urinary frequency. She denies associated abdominal pain, pain with urination or blood in urine. She also denies fever or chills. She does complain of chronic lower back pain. Denied any headache, palpitation or dizziness. Patient also denied any acute gastrointestinal or cardiopulmonary symptoms. Denied tobacco smoking, alcohol abuse or illicit drug use. She stated that she has not taking diuretics or metformin. Also denies recent use of NSAIDs. In the ED, she was found to have tachycardia. Her O2 sats are currently on requiring 2 liters/minute supplemental oxygen via nasal cannula which is her baseline. Review of Systems 2 Review of Systems: All 12 systems were reviewed and normal except as noted in HPI. [facility] Medical History Dysuria Kidney stone on left side Diabetes 1.5, managed as type 1 Recurrent UTI COPD (chronic obstructive pulmonary disease) Respiratory failure with hypoxia Urinary tract infection Hypoxemia Morbid obesity CKD (chronic kidney disease) Anemia COPD exacerbation Allergic rhinitis ALDO (obstructive sleep apnea) Obesity (BMI 30-39.9) Constipation due to opioid therapy Osteoarthritis of left knee Hx SBO Hyperlipidemia CPAP (continuous positive airway pressure) dependence History of adrenal adenoma Osteochondroma of left femur Arthritis Diabetes Elevated cholesterol History of restless legs syndrome History of diverticulitis GERD (gastroesophageal reflux disease) Family History Father HTN (hypertension) Diabetes mellitus Mother HTN (hypertension) Liver cancer Surgical History H/O excision of mass History of oophorectomy History of cholecystectomy History of appendectomy History of arthroscopy of left knee History of partial colectomy Hx of cataract extraction H/O exploratory laparotomy H/O colonoscopy History of surgery History of hysterectomy Social History 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: Other 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 Other:: ex- has been staying over Housing: House Are you a primary youth care specialist to a significant other at home: No Do you presently have visiting nurse or other home services: Yes Unable to assess alcohol history related to: Unknown Alcohol intake: never Comment: PT SLEEPING Patient Tobacco Use Status: Never used Tobacco Smoked in Last 30 Days: No e-Cigarette/Vaping Use: Never Used Second Hand Smoke Exposure: No Use of substances other than those prescribed or required for medical reasons: No Advance Directives: Yes Advance Directives on File: Yes Advance Directives Date on File: 10/19/23 Nutrition Risks: No Nutritional Risk service: No Current occupational status: retired Cognitive needs: No Hearing needs: No Vision needs: No Meds Allergies Allergy/AdvReac Type Severity Reaction Status Date / Time adhesive tape [ADHESIVE TAPE] Allergy Intermediate RASH Verified 11/29/23 15:17 trimethobenzamide Allergy Mild NAUSEA Verified 11/29/23 15:17 [From TIGAN] environmental Allergy Intermediate Nasal Uncoded 11/29/23 15:17 congestion Active Medications: Current Medications Acetaminophen (Acetaminophen 325 Mg Tablet) 975 mg PO Q6H PRN PRN Reason: mild pain, headache or fever Glucose (Glucose Gel 15 Gm Gel..Gram.) 15 gm PO Q15M PRN; Protocol PRN Reason: per Hypoglycemia Standing Ord. Heparin Sodium (Porcine) (Heparin Sodium,Porcine 5,000 Unit/Ml Vial) 5,000 unit SUBCUT Q8H RANGEL Vancomycin HCl (Vancomycin/Ns) 2,000 mg in 500 mls @ 250 mls/hr IV ONCE ONE Stop: 11/29/23 22:36 Last Admin: 11/29/23 20:56 Dose: 250 mls/hr Dextrose (D10) 250 mls @ 750 mls/hr IV Q15M PRN; Protocol PRN Reason: per Hypoglycemia Standing Ord. Insulin Glargine (Insulin Glargine,Hum.Rec.Anlog 100 Unit/Ml 10 Ml Vial) 30 unit SUBCUT ONCE ONE Stop: 11/29/23 21:32 Insulin Human Lispro (Insulin Lispro 100 Unit/Ml 3 Ml Vial) 0 unit SUBCUT QIDACHS [facility]; Protocol Sodium Chloride (0.9 % Sodium Chloride Flush 3 Ml Syringe) 3 ml IVFLUSH QSHIFT [facility] Home Medications ?Medication ?Instructions ?Recorded ?Confirmed ?Last Taken ?Type bupropion HCl 150 mg 24 hr tablet, 150 mg PO BEDTIME 04/25/20 10/18/23 09/01/23 History extended release oxygen-air delivery systems ##1 04/25/20 10/15/23 11/22/21 History aspirin 81 mg chewable tablet 81 mg PO DAILY 10/01/21 10/18/23 10/17/23 History trazodone 100 mg tablet 200 mg PO BEDTIME 10/01/21 10/18/23 08/31/23 History cholecalciferol (vitamin D3) 25 25 mcg PO DAILY 01/04/22 10/18/23 10/17/23 History mcg (1,000 unit) capsule hydroxyzine pamoate 25 mg capsule 25 mg PO BEDTIME 08/13/22 10/18/23 09/01/23 History citalopram 10 mg tablet 10 mg PO DAILY 06/06/23 10/18/23 10/17/23 History multivitamin 1 tab PO DAILY 06/06/23 10/18/23 10/17/23 History albuterol sulfate 90 mcg/actuation 2 puff inhalation Q4H PRN 09/02/23 10/18/23 Unknown History aerosol inhaler (ProAir HFA) shortness of breath or wheezing ropinirole 2 mg tablet 2 mg PO BID 09/02/23 10/18/23 10/17/23 History insulin detemir U-100 100 unit/mL 20 unit subcut BEDTIME 10/18/23 10/18/23 Unknown History (3 mL) subcutaneous pen (Levemir FlexPen) gabapentin 300 mg capsule 300 mg PO BEDTIME 10/27/23 Unknown History gabapentin 300 mg capsule 300 mg PO BID 10/27/23 Unknown History Physical Exam 2 Vital Signs and Narrative: Vital Signs: Last Vital Signs Temp 98.2 F 11/29/23 20:50 Pulse 81 11/29/23 20:50 Resp 16 11/29/23 20:50 BP 122/53 L 11/29/23 20:50 Pulse Ox 100 11/29/23 20:50 O2 Del Method Room Air 11/29/23 20:50 O2 Flow Rate 1.5 11/29/23 20:50 Oxygen Flow Rate 2 05/19/24 15:14 BMI result Body Mass Index 46.9 Constitutional - Awake and Alert, No apparent distress. Nasal cannula in place. Obese. HEENT- Pupils equally round. Normal sclerae. Moist oral mucosa.. Heart - S1S2, RRR. Lungs - Normal lung expansion, Normal respiratory effort, No respiratory distress, CTA bilaterally Abdomen - NT / ND; +BS; No rebound or guarding - No CVA tenderness Extremities - no calf tenderness bilaterally, no swelling Musculoskeletal - Normal inspection, normal ROM Skin - Warm/Dry Neurological - Alert & oriented x3. No focal weakness. Normal speech. Psychological - Appropriate affect Results Labs 11/29/23 16:27 11/29/23 16:27 Labs: Laboratory Results - last 24 hr 11/29/23 11/29/23 11/29/23 16:27 16:29 17:17 MCV 90.3 MCH 28.7 MCHC 31.8 RDW 14.6 Plt Count 284 D MPV 12.0 Immature Gran % (Auto) 0.9 H Neut % (Auto) 85.8 H Lymph % (Auto) 11.2 L [place] % (Auto) 1.8 L Eos % (Auto) 0.1 Baso % (Auto) 0.2 Lymph # (Auto) 2.0 [place] # (Auto) 0.3 Eos # (Auto) 0.0 Baso # (Auto) 0.0 Abs Immat Gran (auto) 0.16 H Absolute Neuts (auto) 14.9 H Absolute Nucleated RBC 0.000 Nucleated RBC % (auto) 0.0 VBG pH VBG pCO2 VBG pO2 VBG HCO3 VBG O2 Saturation VBG Base Excess Anion Gap 20 Estim Creat Clear Calc 32.9 Estimated GFR 29 POC Glucose 419 H* Random Glucose 445 H* Lactic Acid 4.3 H* Lactic Acid F/U @ 2Hr Calcium 9.7 D Total Bilirubin 0.3 AST 12 ALT 17 Alkaline Phosphatase 44 B-Natriuretic Peptide Total Protein 6.8 Albumin 3.9 Beta-Hydroxybutyrate 0.15 Urine Color Yellow Urine Appearance Clear Urine pH 7.0 Ur Specific [place] 1.020 Urine Protein Negative Urine Glucose (UA) >=1000 H Urine Ketones Negative Urine Blood Negative Urine Nitrite Negative Ur Leukocyte Esterase Negative Urine RBC 0-2 Urine WBC 0-5 Ur Squamous Epith Cells 0-2 Urine Bacteria None Seen Hyaline Casts 0-2 Influenza Type A (PCR) Influenza Type B (PCR) RSV RNA Qual (PCR) SARS-CoV-2 RNA (RT-PCR) 11/29/23 11/29/23 11/29/23 17:35 17:38 18:12 MCV MCH MCHC RDW Plt Count MPV Immature Gran % (Auto) Neut % (Auto) Lymph % (Auto) [place] % (Auto) Eos % (Auto) Baso % (Auto) Lymph # (Auto) [place] # (Auto) Eos # (Auto) Baso # (Auto) Abs Immat Gran (auto) Absolute Neuts (auto) Absolute Nucleated RBC Nucleated RBC % (auto) VBG pH 7.44 H VBG pCO2 46 VBG pO2 74 VBG HCO3 31 H VBG O2 Saturation 96.0 VBG Base Excess 6.6 Anion Gap Estim Creat Clear Calc Estimated GFR POC Glucose Random Glucose Lactic Acid Lactic Acid F/U @ 2Hr Calcium Total Bilirubin AST ALT Alkaline Phosphatase B-Natriuretic Peptide < 10 Total Protein Albumin Beta-Hydroxybutyrate Urine Color Urine Appearance Urine pH Ur Specific [place] Urine Protein Urine Glucose (UA) Urine Ketones Urine Blood Urine Nitrite Ur Leukocyte Esterase Urine RBC Urine WBC Ur Squamous Epith Cells Urine Bacteria Hyaline Casts Influenza Type A (PCR) NEGATIVE Influenza Type B (PCR) NEGATIVE RSV RNA Qual (PCR) NEGATIVE SARS-CoV-2 RNA (RT-PCR) NEGATIVE 11/29/23 11/29/23 20:22 20:35 MCV MCH MCHC RDW Plt Count MPV Immature Gran % (Auto) Neut % (Auto) Lymph % (Auto) [place] % (Auto) Eos % (Auto) Baso % (Auto) Lymph # (Auto) [place] # (Auto) Eos # (Auto) Baso # (Auto) Abs Immat Gran (auto) Absolute Neuts (auto) Absolute Nucleated RBC Nucleated RBC % (auto) VBG pH VBG pCO2 VBG pO2 VBG HCO3 VBG O2 Saturation VBG Base Excess Anion Gap Estim Creat Clear Calc Estimated GFR POC Glucose 224 H Random Glucose Lactic Acid Lactic Acid F/U @ 2Hr 1.5 Calcium Total Bilirubin AST ALT Alkaline Phosphatase B-Natriuretic Peptide Total Protein Albumin Beta-Hydroxybutyrate Urine Color Urine Appearance Urine pH Ur Specific [place] Urine Protein Urine Glucose (UA) Urine Ketones Urine Blood Urine Nitrite Ur Leukocyte Esterase Urine RBC Urine WBC Ur Squamous Epith Cells Urine Bacteria Hyaline Casts Influenza Type A (PCR) Influenza Type B (PCR) RSV RNA Qual (PCR) SARS-CoV-2 RNA (RT-PCR) Imaging Radiologist's Impressions: Impressions Abdomen/Pelvis CT 11/29/23 18:29 IMPRESSION: 1. A cause for the patient's flank pain and sepsis has not been found. 2. Incidental note made of enlarged liver, nonobstructing 6 mm left lower pole renal calculus, rectal anastomosis, colonic diverticulosis without diverticulitis and degenerative changes in the spine. Fleischner guidelines were followed. Chest X-Ray 11/29/23 18:46 IMPRESSION: Unremarkable examination. Previously seen patchy densities in the lower lungs have resolved. Assessment and Plan (1) Sepsis: Qualifiers: Sepsis type: sepsis due to unspecified organism Severe sepsis acute organ dysfunction type: unspecified Severe sepsis shock status: unspecified Status: Acute (2) Hyperglycemia: Status: Acute Plan Mine Peacock is 73 years old woman admitted with: * Acute on chronic kidney failure (CKD stage 3B). Hold lisinopril. Hydration. Continue to monitor renal function. Avoid nephrotoxic agents. * SIRS criteria. Unknown etiology. Lactic acid normalized. Check urine culture. BCs X2 obtained -will follow results. Empiric IV antibiotic therapy with ceftriaxone and vancomycin. * Urinary frequency. Check urine culture. * COPD. No acute symptoms. Albuterol inhaler as needed for wheezing and/or shortness on breath. * Type 2 diabetes mellitus, uncontrolled. BG checks before meals and bedtime. Continue Lantus and insulin sliding scale. Diabetic diet. * Essential hypertension. Continue antihypertensive meds. Except lisinopril due to AGUSTIN. * Hyperlipidemia. Continue statin. * Depression. Continue home medications. * Restless legs syndrome. Continue ropinirole. * GERD. Continue PPI. * Obstructive sleep apnea. Patient is not using CPAP. * Morbid obesity. BMP 46.9 kg/m2. Weight loss. * Chronic anemia. Continue to monitor. DVT prophylaxis: Heparin Code status: Full Patient will need hospitalization for at least 2 midnights for AGUSTIN therapy with IV fluid and close monitoring of renal function. Patient also need therapy were empiric IV antibiotic therapy. Quality Stroke Does the patient have a stroke diagnosis?: No VTE Prior VTE?: No VTE Risk Level:: Medical - moderate - high VTE Device Contraindication: Treatment Not Indicated VTE Drug Contraindication: N/A - Med Ordered
[2023-11-29 21:53] VITALS: BP 141/53; PULSE 92; RESP 20; O2SAT 94
[2023-11-29] MEDS: Insulin Glargine,Hum.rec.anlog 100 UNIT/ML 10 ML VIAL 30 UNIT SUBCUT (22:05)
[2023-11-29] MEDS: rOPINIRole HCL 1 MG TABLET 2 MG PO (22:05)
[2023-11-29 22:06] VITALS: BP 127/54; PULSE 93; RESP 20; O2SAT 95
[2023-11-30] MEDS: Ketorolac Tromethamine 15 MG/ML VIAL IVPUSH (00:41)
[2023-11-30] MEDS: 0.9 % Sodium Chloride 1,000 ML 75 ML IVCONT (00:42)
[2023-11-30 02:16] VITALS: BP 129/54; PULSE 88; RESP 22; TEMP 36.6; O2SAT 97
[2023-11-30] MEDS: Acetaminophen 325 MG TABLET 975 MG PO ×2 (03:13→18:49)
[2023-11-30 05:05] LABS: MANUAL DIFF FLAG NO
[2023-11-30 05:06] LABS: Basophils Percent Auto 0.2 % (0-2); Eosinophils Absolute Auto 0.1 X10*3/uL (0.0-0.4); Eosinophils Percent Auto 0.8 % (0-4); Hematocrit 32.8 % (37.0-47.0); Hemoglobin 10.5 g/dl (12.0-16.0); Imm Gran Abs Auto 0.13 X10*3/uL (0.00-0.03); Imm Gran Pct Auto 0.9 % (0.0-0.4); Lymphocytes Absolute Auto 3.5 X10*3/uL (1.2-4.9); Lymphocytes Percent Auto 24.5 % (20-40); Mean Corpuscular Hemoglobin 28.7 pg (27.0-33.0); Mean Corpuscular Volume 89.6 fL (80.0-98.0); Mean Platelet Volume 12.5 fL (9.4-12.3); Monocytes Absolute Auto 0.9 X10*3/uL (0.1-1.2); Monocytes Percent Auto 5.9 % (2-11); Neutrophils Absolute Auto 9.7 x10*3/uL (2.0-8.3); Neutrophils Percent Auto 67.7 % (45-73); Platelet Count 209 X10*3/uL (160-400); Red Blood Count 3.66 X10*6/uL (4.20-5.50); Red Cell Distribution Width 14.4 % (11.0-16.0); White Blood Count 14.3 X10*3/uL (4.8-10.8)
[2023-11-30 05:27] LABS: Anion Gap 15 (12-20); Blood Urea Nitrogen 37 mg/dL (9-16); Calcium 8.6 mg/dL (8.4-10.2); Carbon Dioxide 24 mmol/L (22-29); Chloride 106 mmol/L (96-108); Creatinine Clr Calc Pharmacy 35.2; Estimated Glomerular Filt Rate 32; Glucose Random 182 mg/dL (60-115); Sodium 141 mmol/L (135-145)
[2023-11-30 06:36] VITALS: BP 123/59; PULSE 81; RESP 21; TEMP 36.7; O2SAT 98
[2023-11-30 07:37] LABS: Glucose, Whole Blood 121 mg/dL (60-115)
--- NOTE | 2023-11-30 09:35 | MHC.CM.PN ---
CM met with Patient at bedside, in the ED and addressed IMM with her, providing Patient with the original and a copy will be placed on the chart. Patient lives alone in a house and she uses a w/c to assist with mobility. Patient is active with [facility] for home O2, and her Son is her [employer] 41 hours/week. Home/resume said services is the goal and CM has initiated and will follow for dc planning. Son/Lewis is the HCP and the PCP is Dr.Asma Perez.
--- NOTE | 2023-11-30 10:09 | PHA.MEDREC ---
Pharmacy Consult ? Medication Reconciliation Pharmacy has completed the medication reconciliation. Spoke with patient to confirm medications. She confirmed insulin, Levemir 15 units in AM and 30 units at bedtime, she reports using the green pen, not the Lantus. Also uses humalog with sliding scale. She confirmed using gabapentin 1 capsule in the AM and 3 at bedtime. She reports not starting the Trulicity yet, and finished prednisone taper a few days ago.
[2023-11-30] MEDS: 0.9 % Sodium Chloride Flush 3 ML SYRINGE IVFLUSH ×2 (10:22→18:28)
[2023-11-30] MEDS: Heparin Sodium,Porcine 5,000 UNIT/ML VIAL 5000 UNIT SUBCUT ×2 (10:24→18:29)
--- NOTE | 2023-11-30 11:18 | P.PNIM_ITS ---
Subjective Subjective Date of Service: 11/30/23 Interval History: Admitted with multiple medical issues Complaining of polyuria, elevated blood sugars, shortness of breath with ambulation and acute on chronic back pain. Denies urinary burning, or dysuria, blood sugars and 400s, history of COPD on 2 L of oxygen, chronic cough unchanged, no fevers, no chills, no nausea no vomiting or abdominal pain, no diarrhea. Review of Systems All other system reviewed and negative. Physical Exam 2 Vital Signs: Vital Signs: Last Vital Signs Temp 98.0 F 11/30/23 06:36 Pulse 81 11/30/23 06:36 Resp 21 H 11/30/23 06:36 BP 123/59 L 11/30/23 06:36 Pulse Ox 98 11/30/23 06:36 O2 Del Method Nasal Cannula 11/30/23 06:36 O2 Flow Rate 2 11/30/23 06:36 Oxygen Flow Rate 2 11/29/23 15:14 BMI result Body Mass Index 46.9 Const: Other: Constitutional - Awake and Alert, No apparent distress Neck no JVD Cardiovascular - S1S2, RRR, No edema Respiratory - clear to auscultation bilaterally, no wheeze, no rhonchi Gastrointestinal - NT / ND; +BS; No rebound or guarding Extremities - no calf tenderness bilaterally, no swelling Musculoskeletal - Normal inspection, normal ROM Skin - Warm/Dry, no rash Neurological - Alert & oriented x3, No focal deficit Psychological - Appropriate affect Objective Data Active Medications Acetaminophen (Acetaminophen 325 Mg Tablet) 975 mg PO Q6H PRN PRN Reason: mild pain, headache or fever Last Admin: 11/30/23 03:13 Dose: 975 mg Documented By: ZIGGY Albuterol Sulfate (Albuterol Sulfate (0.083%) 2.5 Mg/3 Ml Vial.Neb) 2.5 mg INHALE Q2H PRN PRN Reason: Shortness of Breath/Wheezing Glucose (Glucose Gel 15 Gm Gel..Gram.) 15 gm PO Q15M PRN; Protocol PRN Reason: per Hypoglycemia Standing Ord. Heparin Sodium (Porcine) (Heparin Sodium,Porcine 5,000 Unit/Ml Vial) 5,000 unit SUBCUT Q8H [facility] Last Admin: 11/30/23 10:24 Dose: 5,000 unit Documented By: EDGAR Dextrose (D10) 250 mls @ 750 mls/hr IV Q15M PRN; Protocol PRN Reason: per Hypoglycemia Standing Ord. Insulin Human Lispro (Insulin Lispro 100 Unit/Ml 3 Ml Vial) 0 unit SUBCUT QIDACHS [facility]; Protocol Last Admin: 11/30/23 10:24 Dose: Not Given Documented By: EDGAR Non-Admin Reason: No Insulin Coverage Ketorolac Tromethamine (Ketorolac Tromethamine 15 Mg/Ml Vial) 15 mg IVPUSH ONCE PRN PRN Reason: Pain, Severe (Pain Scale 7-10) Last Admin: 11/30/23 00:41 Dose: 15 mg Documented By: ZIGGY Sodium Chloride (0.9 % Sodium Chloride Flush 3 Ml Syringe) 3 ml IVFLUSH [facility] Last Admin: 11/30/23 10:22 Dose: 3 ml Documented By: EDGAR Labs 11/30/23 04:36 11/30/23 04:36 Labs: Laboratory Results - last 24 hr 11/29/23 11/29/23 11/29/23 16:27 16:29 17:17 MCV 90.3 MCH 28.7 MCHC 31.8 RDW 14.6 Plt Count 284 D MPV 12.0 Immature Gran % (Auto) 0.9 H Neut % (Auto) 85.8 H Lymph % (Auto) 11.2 L [place] % (Auto) 1.8 L Eos % (Auto) 0.1 Baso % (Auto) 0.2 Lymph # (Auto) 2.0 [place] # (Auto) 0.3 Eos # (Auto) 0.0 Baso # (Auto) 0.0 Abs Immat Gran (auto) 0.16 H Absolute Neuts (auto) 14.9 H Absolute Nucleated RBC 0.000 Nucleated RBC % (auto) 0.0 VBG pH VBG pCO2 VBG pO2 VBG HCO3 VBG O2 Saturation VBG Base Excess Anion Gap 20 Estim Creat Clear Calc 32.9 Estimated GFR 29 POC Glucose 419 H* Random Glucose 445 H* Lactic Acid 4.3 H* Lactic Acid F/U @ 2Hr Calcium 9.7 D Total Bilirubin 0.3 AST 12 ALT 17 Alkaline Phosphatase 44 B-Natriuretic Peptide Total Protein 6.8 Albumin 3.9 Beta-Hydroxybutyrate 0.15 Urine Color Yellow Urine Appearance Clear Urine pH 7.0 Ur Specific [place] 1.020 Urine Protein Negative Urine Glucose (UA) >=1000 H Urine Ketones Negative Urine Blood Negative Urine Nitrite Negative Ur Leukocyte Esterase Negative Urine RBC 0-2 Urine WBC 0-5 Ur Squamous Epith Cells 0-2 Urine Bacteria None Seen Hyaline Casts 0-2 Influenza Type A (PCR) Influenza Type B (PCR) RSV RNA Qual (PCR) SARS-CoV-2 RNA (RT-PCR) 11/29/23 11/29/23 11/29/23 17:35 17:38 18:12 MCV MCH MCHC RDW Plt Count MPV Immature Gran % (Auto) Neut % (Auto) Lymph % (Auto) [place] % (Auto) Eos % (Auto) Baso % (Auto) Lymph # (Auto) [place] # (Auto) Eos # (Auto) Baso # (Auto) Abs Immat Gran (auto) Absolute Neuts (auto) Absolute Nucleated RBC Nucleated RBC % (auto) VBG pH 7.44 H VBG pCO2 46 VBG pO2 74 VBG HCO3 31 H VBG O2 Saturation 96.0 VBG Base Excess 6.6 Anion Gap Estim Creat Clear Calc Estimated GFR POC Glucose Random Glucose Lactic Acid Lactic Acid F/U @ 2Hr Calcium Total Bilirubin AST ALT Alkaline Phosphatase B-Natriuretic Peptide < 10 Total Protein Albumin Beta-Hydroxybutyrate Urine Color Urine Appearance Urine pH Ur Specific [place] Urine Protein Urine Glucose (UA) Urine Ketones Urine Blood Urine Nitrite Ur Leukocyte Esterase Urine RBC Urine WBC Ur Squamous Epith Cells Urine Bacteria Hyaline Casts Influenza Type A (PCR) NEGATIVE Influenza Type B (PCR) NEGATIVE RSV RNA Qual (PCR) NEGATIVE SARS-CoV-2 RNA (RT-PCR) NEGATIVE 11/29/23 11/29/23 11/30/23 20:22 20:35 04:36 MCV 89.6 MCH 28.7 MCHC 32.0 RDW 14.4 Plt Count 209 D MPV 12.5 H Immature Gran % (Auto) 0.9 H Neut % (Auto) 67.7 Lymph % (Auto) 24.5 [place] % (Auto) 5.9 Eos % (Auto) 0.8 Baso % (Auto) 0.2 Lymph # (Auto) 3.5 [place] # (Auto) 0.9 Eos # (Auto) 0.1 Baso # (Auto) 0.0 Abs Immat Gran (auto) 0.13 H Absolute Neuts (auto) 9.7 H Absolute Nucleated RBC 0.000 Nucleated RBC % (auto) 0.0 VBG pH VBG pCO2 VBG pO2 VBG HCO3 VBG O2 Saturation VBG Base Excess Anion Gap 15 Estim Creat Clear Calc 35.2 Estimated GFR 32 POC Glucose 224 H Random Glucose 182 H Lactic Acid Lactic Acid F/U @ 2Hr 1.5 Calcium 8.6 D Total Bilirubin AST ALT Alkaline Phosphatase B-Natriuretic Peptide Total Protein Albumin Beta-Hydroxybutyrate Urine Color Urine Appearance Urine pH Ur Specific [place] Urine Protein Urine Glucose (UA) Urine Ketones Urine Blood Urine Nitrite Ur Leukocyte Esterase Urine RBC Urine WBC Ur Squamous Epith Cells Urine Bacteria Hyaline Casts Influenza Type A (PCR) Influenza Type B (PCR) RSV RNA Qual (PCR) SARS-CoV-2 RNA (RT-PCR) 11/30/23 07:27 MCV MCH MCHC RDW Plt Count MPV Immature Gran % (Auto) Neut % (Auto) Lymph % (Auto) [place] % (Auto) Eos % (Auto) Baso % (Auto) Lymph # (Auto) [place] # (Auto) Eos # (Auto) Baso # (Auto) Abs Immat Gran (auto) Absolute Neuts (auto) Absolute Nucleated RBC Nucleated RBC % (auto) VBG pH VBG pCO2 VBG pO2 VBG HCO3 VBG O2 Saturation VBG Base Excess Anion Gap Estim Creat Clear Calc Estimated GFR POC Glucose 121 H Random Glucose Lactic Acid Lactic Acid F/U @ 2Hr Calcium Total Bilirubin AST ALT Alkaline Phosphatase B-Natriuretic Peptide Total Protein Albumin Beta-Hydroxybutyrate Urine Color Urine Appearance Urine pH Ur Specific [place] Urine Protein Urine Glucose (UA) Urine Ketones Urine Blood Urine Nitrite Ur Leukocyte Esterase Urine RBC Urine WBC Ur Squamous Epith Cells Urine Bacteria Hyaline Casts Influenza Type A (PCR) Influenza Type B (PCR) RSV RNA Qual (PCR) SARS-CoV-2 RNA (RT-PCR) Microbiology Microbiology Results: Microbiology 11/29/23 16:29 Urine Culture - Preliminary Urine clean catch Culture too young to evaluate. Assessment and Plan (1) Hyperglycemia: Status: Acute Plan Mine Peacock is 73 years old woman admitted with multiple medical issues: Acute on chronic kidney failure (CKD stage 3B). Likely due to polyurea due to hyperglycemia, treated with IV fluid, renal function returned to baseline SIRS criteria. Likely reactive leukocytosis with hyperglycemia WBC trending down, no fevers, chest x-ray unremarkable, UA benign, CT abdomen and pelvis showed no acute abnormality, patient noted to have nonobstructing 6 mm left lower pole renal calculus colonic diverticulosis without diverticulitis, in lung bases showed atelectasis. Will DC antibiotics COPD. No acute symptoms. Albuterol inhaler as needed for wheezing and/or shortness on breath. Continue baseline oxygen 2 L, encourage incentive spirometry out of bed to chair will consult PT due to shortness of breath with ambulation Type 2 diabetes mellitus, uncontrolled blood sugars. Will continue Lantus and insulin sliding scale, Diabetic diet and adjust dose of insulin prior to discharge. Essential hypertension. Resume lisinopril, hold amlodipine avoid hypotension. Hyperlipidemia. Continue statin. Depression. Resume all home medications Restless legs syndrome. Continue ropinirole. GERD. Continue PPI. Obstructive sleep apnea. not using CPAP at home. Morbid obesity. BMP 46.9 kg/m2. Counseling done, Weight loss recommended.. Chronic anemia. Continue to monitor. DVT prophylaxis: Heparin Code status: Full Patient will need continued inpatient hospitalization for close monitoring of renal function, blood sugars and follow-up on blood cultures and safe disposition. Quality Stroke Does the patient have a stroke diagnosis?: No VTE Prior VTE?: No VTE Risk Level:: Medical - moderate - high VTE Device Contraindication: Treatment Not Indicated VTE Drug Contraindication: N/A - Med Ordered
[2023-11-30 11:57] LABS: Glucose, Whole Blood 168 mg/dL (60-115)
[2023-11-30] MEDS: Insulin Lispro 100 UNIT/ML 3 ML VIAL SUBCUT ×3 (12:19→21:17)
[2023-11-30] MEDS: Insulin Glargine,Hum.rec.anlog 100 UNIT/ML 10 ML VIAL 10.5 UNIT SUBCUT (12:20)
[2023-11-30] MEDS: Gabapentin 300 MG CAPSULE PO (12:20)
--- NOTE | 2023-11-30 13:30 | P.CDIM_ITS ---
PROVIDER RESPONSE TEXT: To clarify, the appropriate diagnosis supported by the clinical indicators: Chronic respiratory failure QUERY TEXT: PHYSICIAN'S DOCUMENTATION REQUEST Date of Query: 11/30/2023 01:03 PM EDT Patient Name: Mine Peacock Admit Date: 11/30/2023 Dear Em Smith, A review of the medical record indicates additional documentation may be needed. Please review below and update the documentation accordingly. Clinical Indicators: H&P dated 11/28 - Past medical history for COPD - on home O2 2L min. In the ED she was found to have tachycardia, Her O2 sats are currently on requiring 2 liters/minute s upplemental oxygen via NC which is her baseline. ABG's ordered/RR 22 Obstructive sleep apnea, Morbidly obese Continue baseline oxygen, 2 L, encourage spirometry out of bed to chair will consult PT due to shortn ess of breath with ambulation. Please clarify which of the following accurately represents the patient's respiratory status: Chronic respiratory failure O2 dependent Other (explain) Clinically unable to determine (explain) Thank you, Teresita Rodríguez, CCS, CDIS Use of terms such as suspected, likely, concern for, or probable (associated with a specific diagnosi s that is being evaluated, monitored, or treated as if it exists) are acceptable and can be coded in the inpatient se tting, when documented at the time of discharge. Please use your independent medical judgment in providing your response. THIS QUERY IS PART OF THE PERMANENT MEDICAL RECORD
[2023-11-30] MEDS: rOPINIRole HCL 2 MG TABLET PO ×2 (13:42→21:16)
[2023-11-30 14:16] VITALS: BP 110/50; PULSE 97; RESP 13; TEMP 36.7; O2SAT 94
[2023-11-30 16:20] VITALS: BP 119/56; PULSE 91; RESP 23; TEMP 36.6; O2SAT 95
[2023-11-30 16:35] LABS: Glucose, Whole Blood 197 mg/dL (60-115)
[2023-11-30 18:26] LABS: Glucose, Whole Blood 236 mg/dL (60-115)
[2023-11-30 19:05] VITALS: BP 133/64; PULSE 99; RESP 16; TEMP 36.7; O2SAT 96
[2023-11-30] MEDS: traZODone HCL 100 MG TABLET 200 MG PO (21:16)
[2023-11-30] MEDS: Gabapentin 300 MG CAPSULE 900 MG PO (21:16)
[2023-11-30] MEDS: Insulin Glargine,Hum.rec.anlog 100 UNIT/ML 10 ML VIAL 21 UNIT SUBCUT (21:17)
[2023-11-30 21:25] LABS: Glucose, Whole Blood 229 mg/dL (60-115)
--- NOTE | 2023-11-30 21:36 | PC.NURSE ---
Pt aox4 reporting back pain, 02/19. Pt placed on reclyner for comfort. Pt able to ambulate with walker to reclyner. Medicated as per SEP. Pt tolerated well. Pt aware of plan of care.
[2023-11-30 23:17] VITALS: BP 154/70; PULSE 88; RESP 18; TEMP 36.4; O2SAT 96
[2023-12-01] MEDS: Heparin Sodium,Porcine 5,000 UNIT/ML VIAL 5000 UNIT SUBCUT ×2 (00:44→09:31)
[2023-12-01] MEDS: 0.9 % Sodium Chloride Flush 3 ML SYRINGE IVFLUSH ×2 (00:47→09:32)
[2023-12-01 00:58] LABS: Glucose, Whole Blood 86 mg/dL (60-115)
[2023-12-01 03:15] VITALS: BP 132/60; PULSE 74; RESP 18; TEMP 36.6; O2SAT 96
[2023-12-01 07:48] LABS: Hematocrit 33.7 % (37.0-47.0); Hemoglobin 10.6 g/dl (12.0-16.0); Mean Corpuscular HGB Conc 31.5 g/dl (31.0-35.0); Mean Corpuscular Hemoglobin 28.4 pg (27.0-33.0); Mean Corpuscular Volume 90.3 fL (80.0-98.0); Mean Platelet Volume 11.9 fL (9.4-12.3); Platelet Count 212 X10*3/uL (160-400); Red Blood Count 3.73 X10*6/uL (4.20-5.50); Red Cell Distribution Width 14.6 % (11.0-16.0); White Blood Count 11.3 X10*3/uL (4.8-10.8)
[2023-12-01 08:00] VITALS: BP 152/75; PULSE 85; RESP 20; TEMP 36.7; O2SAT 96
[2023-12-01 08:19] LABS: Anion Gap 13 (12-20); Blood Urea Nitrogen 33 mg/dL (9-16); Calcium 8.8 mg/dL (8.4-10.2); Carbon Dioxide 28 mmol/L (22-29); Chloride 107 mmol/L (96-108); Creatinine Clr Calc Pharmacy 42.1; Estimated Glomerular Filt Rate 39; Glucose Random 105 mg/dL (60-115); Potassium 4.2 mmol/L (3.3-5.1); Sodium 144 mmol/L (135-145)
[2023-12-01 08:53] LABS: Glucose, Whole Blood 110 mg/dL (60-115)
[2023-12-01] MEDS: Cholecalciferol (Vitamin D3) 25 MCG TABLET PO (09:30)
[2023-12-01] MEDS: Escitalopram Oxalate 5 MG TABLET PO (09:30)
[2023-12-01] MEDS: lisinopriL 10 MG TABLET PO (09:30)
[2023-12-01] MEDS: buPROPion HCl XL 150 MG TAB.ER.24H PO (09:30)
[2023-12-01] MEDS: Gabapentin 300 MG CAPSULE PO (09:31)
[2023-12-01] MEDS: hydrOXYzine HCL 25 MG TABLET PO (09:31)
[2023-12-01] MEDS: Atorvastatin Calcium 80 MG TABLET PO (09:31)
[2023-12-01] MEDS: rOPINIRole HCL 2 MG TABLET PO (09:31)
[2023-12-01] MEDS: Aspirin 81 MG TAB.CHEW PO (09:31)
[2023-12-01] MEDS: Montelukast Sodium 10 MG TABLET PO (09:31)
[2023-12-01] MEDS: Insulin Glargine,Hum.rec.anlog 100 UNIT/ML 10 ML VIAL 10.5 UNIT SUBCUT (09:31)
--- NOTE | 2023-12-01 11:42 | PM.DS ---
DS: Providers Provider Date of Service: 12/01/23 Date of admission: 11/29/23 21:18 Primary care physician: Shelbi Perez MD DS: Diagnosis Discharge Diagnosis (1) Hyperglycemia: Status: Acute DS: Summary Hospital Course Hospital Course: Date of Service: 11/29/23 Attending physician on admission: Arabella Abdul Chief Complaint: Increased urinary frequency Mine Peacock is 73 years old woman with past medical history significant for COPD -on home O2 2 L/Min, CKD stage 3B, chronic anemia, morbid obesity, hyperlipidemia, obstructive sleep apnea (not using CPAP), recurrent UTIs, type 2 diabetes mellitus a recent hospitalization at [facility] for COPD exacerbation presents to the emergency department complaining of urinary frequency. She denies associated abdominal pain, pain with urination or blood in urine. She also denies fever or chills. She does complain of chronic lower back pain. Denied any headache, palpitation or dizziness. Patient also denied any acute gastrointestinal or cardiopulmonary symptoms. Denied tobacco smoking, alcohol abuse or illicit drug use. She stated that she has not taking diuretics or metformin. Also denies recent use of NSAIDs. In the ED, she was found to have tachycardia. Her O2 sats are currently on requiring 2 liters/minute supplemental oxygen via nasal cannula which is her baseline. Hospital course: 73 years old woman admitted with multiple medical issues including polyurea, chronic back pain and elevated blood sugars recently taken off of metformin, in the emergency room patient was noted to have leukocytosis, tachycardia and hyperglycemia and elevated creatinine, therefore admitted to [facility] with following medical issues: Acute on chronic kidney failure (CKD stage 3B), Likely due to polyurea due to hyperglycemia, treated with IV fluid, renal function returned to baseline, recommend good blood sugar control, patient met SIRS criteria with tachycardia and leukocytosis, had no source of infection leukocytosis was likely reactive with hyperglycemia, patient had no fevers, chest x-ray unremarkable, UA benign, CT abdomen and pelvis showed no acute abnormality, patient noted to have non obstructing 6 mm left lower pole renal calculus, colonic diverticulosis without diverticulitis, lung bases showed atelectasis, all features of sepsis resolved.. In regard to COPD patient had no acute exacerbation recommend to continue home inhalers and 2 L of oxygen Type 2 diabetes mellitus, with hyperglycemia patient was treated with insulin, diabetic diet her dose of NovoLog sliding scale has been adjusted and she is recommended to resume Trulicity recently prescribed by primary care physician , also recommended to follow diabetic diet.. Essential hypertension. Noted to have stable blood pressures amlodipine discontinued and dose of lisinopril increased to 10 mg daily, to avoid polypharmacy. In regard to chronic medical issues including hyperlipidemia, depression, restless leg syndrome, GERD recommend to continue home medications GERD. Continue PPI. Obstructive sleep apnea. not using CPAP at home. Morbid obesity. BMP 46.9 kg/m2. Counseling done, Weight loss recommended.. Time Attestation Discharge Coordination Time (in mins): 38 Quality: Safe Use of Opioids Does Pt have an Active Cancer Diagnosis on the Problem List?: No Quality: Stroke Does the patient have a stroke diagnosis?: No Physical Exam Vital Signs: Vital Signs: Last Vital Signs Temp 98.0 F 12/01/23 08:00 Pulse 85 12/01/23 08:00 Resp 20 12/01/23 08:00 BP 152/75 H 12/01/23 08:00 Pulse Ox 96 12/01/23 08:00 O2 Del Method Nasal Cannula 12/01/23 08:00 O2 Flow Rate 2 12/01/23 08:00 Oxygen Flow Rate 2 11/29/23 15:14 BMI result Body Mass Index 46.9 Const: Other: Constitutional - Awake and Alert, No apparent distress Neck no JVD Cardiovascular - S1S2, RRR, No edema Respiratory - clear to auscultation bilaterally, no wheeze, no rhonchi Gastrointestinal - obese soft nontender, bowel sounds audible, No rebound or guarding Extremities - no calf tenderness bilaterally, no swelling Musculoskeletal - Normal inspection, normal ROM Skin - Warm/Dry, no rash Neurological - Alert & oriented x3, No focal deficit Psychological - Appropriate affect DS: Data Data Completed and Pending Completed studies during hospitalization [Text1]: Procedures Insertion of Infusion Device into Superior Vena Cava, Percutaneous Approach (09/02/23) Insertion of Tunneled Vascular Access Device into Chest Subcutaneous Tissue and Fascia, Percutaneous Approach (09/02/23) Replacement of Left Knee Joint with Synthetic Substitute, Uncemented, Open Approach (05/28/20) Ultrasonography of Superior Vena Cava, Guidance (09/02/23) Labs on day of discharge: Laboratory Results - last 24 hr 05/20/24 05/20/24 05/20/24 11:54 16:25 18:22 WBC RBC Hgb Hct MCV MCH MCHC RDW Plt Count MPV Absolute Nucleated RBC Nucleated RBC % (auto) Sodium Potassium Chloride Carbon Dioxide Anion Gap BUN Creatinine Estim Creat Clear Calc Estimated GFR POC Glucose 168 H 197 H 236 H Random Glucose Calcium 11/30/23 12/01/23 12/01/23 21:14 00:52 07:15 WBC 11.3 H RBC 3.73 L Hgb 10.6 L Hct 33.7 L MCV 90.3 MCH 28.4 MCHC 31.5 RDW 14.6 Plt Count 212 MPV 11.9 Absolute Nucleated RBC 0.000 Nucleated RBC % (auto) 0.0 Sodium 144 Potassium 4.2 Chloride 107 Carbon Dioxide 28 Anion Gap 13 BUN 33 H Creatinine 1.33 Estim Creat Clear Calc 42.1 Estimated GFR 39 POC Glucose 229 H 86 Random Glucose 105 Calcium 8.8 12/01/23 08:48 WBC RBC Hgb Hct MCV MCH MCHC RDW Plt Count MPV Absolute Nucleated RBC Nucleated RBC % (auto) Sodium Potassium Chloride Carbon Dioxide Anion Gap BUN Creatinine Estim Creat Clear Calc Estimated GFR POC Glucose 110 Random Glucose Calcium Preliminary micro results at discharge 11/29/23 16:27 Blood Culture - Preliminary Blood - Venous No growth after 24 hours. 11/29/23 16:28 Blood Culture - Preliminary Blood - Venous No growth after 24 hours. Discharge Plan Discharge Anticipated Discharge Date/Time: 12/01/23 10:53 Patient Disposition: Home Health Service Discharge Diagnosis: Acute on chronic kidney disease stage IIIB Hyperglycemia due to type 2 diabetes mellitus Referrals: Jasen ALLISON [Outside] - 1 Week Shelbi Perez MD [Primary Care Provider] - 1 Week Discharge Medications: Continued (DME) lancets 28 gauge misc See Rx Instructions topical TID Qty: 100 3RF Rx Instructions: once a day (DME) diaper,brief,adult,disposable Misc See Rx Instructions .Route Qty: 64 5RF Rx Instructions: Use for stress incontinence (DME) lancets [OneTouch Delica Lancets] 30 gauge misc See Rx Instructions .Route Qty: 100 2RF Rx Instructions: Use to check blood sugar twice daily and when having symptoms of hypo/hyperglycemia (DME) blood-glucose meter [[employer] Ultra2 Meter] Misc See Rx Instructions .Route Qty: 1 0RF Rx Instructions: Use to check blood sugar twice daily and when having symptoms of hypo/hyperglycemia (DME) pen needle, diabetic [BD Ultra-Fine Mini Pen Needle] 31 gauge x 3/16 needle See Rx Instructions .Route Qty: 100 2RF Rx Instructions: Use to administer insulin twice daily (DME) walker Misc See Rx Instructions .Route Qty: 1 0RF Rx Instructions: Wheeled walker with seat and brakes (DME) Shower Chair Misc See Rx Instructions .Route Qty: 1 0RF Rx Instructions: Shower chair with back and arm rests montelukast 10 mg tablet 10 mg PO DAILY Qty: 90 1RF (DME) diaper,brief,adult,disposable Misc See Rx Instructions .Route Qty: 200 5RF Rx Instructions: Size medium pull up briefs atorvastatin 80 mg tablet 80 mg PO DAILY 90 Days Qty: 90 0RF albuterol sulfate 2.5 mg /3 mL (0.083 %) solution for nebulization 2.5 mg inhalation Q4-6H PRN (Reason: shortness of breath or wheezing) Qty: 75 0RF (DME) FreeStyle Lite Strips Strip See Rx Instructions .Route Qty: 100 6RF Rx Instructions: Use to check blood sugar 3 times a day as needed (DME) OneTouch Ultra Test Strip See Rx Instructions .Route Qty: 100 2RF Rx Instructions: Use to check blood sugar 3 times a day as needed (DME) AeroEclipse II Nebulizer Misc See Rx Instructions .ROUTE .MEDSUPPLY Qty: 1 0RF Rx Instructions: As directed hydroxyzine pamoate 25 mg capsule 25 mg PO DAILY trazodone 100 mg tablet 200 mg PO BEDTIME aspirin 81 mg Tablet,Chewable 81 mg PO DAILY cholecalciferol (vitamin D3) 25 mcg (1,000 unit) Capsule 25 mcg PO DAILY Levemir FlexPen 100 unit/mL (3 mL) insulin pen 30 unit subcut BEDTIME citalopram 10 mg tablet 10 mg PO DAILY gabapentin 300 mg capsule 300 mg PO QAM albuterol sulfate [ProAir HFA] 90 mcg/actuation HFA aerosol inhaler 2 puff inhalation Q4H PRN (Reason: shortness of breath or wheezing) ropinirole 2 mg tablet 2 mg PO BID gabapentin 300 mg capsule 900 mg PO BEDTIME Levemir FlexPen 100 unit/mL (3 mL) insulin pen 15 unit subcut QAM insulin aspart U-100 [Novolog FlexPen U-100 Insulin] 100 unit/mL (3 mL) insulin pen See Protocol subcut TID Qty: 30 0RF Protocol: Insulin Correction Scale Less than or equal to 110 ---- Give (units): 0 111 to 150 Give (units): 0 151 to 200 Give (units): 2 201 to 250 Give (units): 6 251 to 300 Give (units): 8 301 to 350 Give (units): 10 Greater than 350 Give (units): 12 Call MD if Blood Glucose > : 350 Rx Instructions: Up to 10 units before each meal according to sliding scale (DME) pen needle, diabetic 31 gauge x 3/16 needle See Rx Instructions subcut TID Qty: 1200 1RF Rx Instructions: 4x a day bupropion HCl 150 mg tablet extended release 24 hr 150 mg PO DAILY (DME) oxygen-air delivery systems Device See Rx Instructions .ROUTE .MEDSUPPLY Qty: 1 Rx Instructions: As directed Changed lisinopril 5 mg tablet 10 mg PO DAILY Qty: 90 0RF Discontinued amlodipine [Norvasc] 5 mg tablet 5 mg PO DAILY 30 Days Qty: 90 0RF Discharge Orders: Discharge Order (Routine); Ordered 12/01/23 Ordered By: Em Smith Diet: Diabetic diet Activity on Discharge: As tolerated Stand Alone Forms: Patient Portal Discharge page Print Language: Portuguese Care Plan Goals: Continue taking current insulin/dose of insulin sliding scale adjusted/ Take Trulicity as prescribed by PCP Follow diabetic diet Discontinue amlodipine Increase dose of lisinopril to 10 mg (take 2 tablets of 5 mg lisinopril) Health Concerns: Diabetes Hypertension Plan of Treatment: Outpatient follow-up with primary care physician call for appointment Assessment: As above Discharge Date/Time: 12/01/23 13:00
[2023-12-01 11:58] LABS: Glucose, Whole Blood 153 mg/dL (60-115)
--- NOTE | 2023-12-01 12:10 | MHC.CM.PN ---
Pt has been medically cleared for DC, she will go home and resume her home care services from [facility], and [facility].
== END 2023-12-01 13:00 | disposition home health service (06) | DRG 872 ==
LOC: HO.ED 21:09 → HO.EDOVER 21:42 → HO.IMC 11-30 21:41
PROVIDERS: Nurse Practitioner Family; Registered Nurse Emergency; Admitting Provider Internal Medicine; Emergency Provider Internal Medicine; PCP Internal Medicine; Visit Provider Hospitalist
DX: A41.9 Sepsis, unspecified organism (principal); Z68.42 Body mass index [BMI] 45.0-49.9, adult; F33.9 Major depressive disorder, recurrent, unspecified; J98.11 Atelectasis; N17.9 Acute kidney failure, unspecified; E66.01 Morbid (severe) obesity due to excess calories; G47.33 Obstructive sleep apnea (adult) (pediatric); D63.1 Anemia in chronic kidney disease; G89.29 Other chronic pain; M54.50 Low back pain, unspecified; J44.9 Chronic obstructive pulmonary disease, unspecified; N18.32 Chronic kidney disease, stage 3b; K21.9 Gastro-esophageal reflux disease without esophagitis; E11.22 Type 2 diabetes mellitus with diabetic chronic kidney disease; E11.65 Type 2 diabetes mellitus with hyperglycemia; Z20.822 Contact with and (suspected) exposure to COVID-19; Z71.3 Dietary counseling and surveillance; Z99.81 Dependence on supplemental oxygen; Z87.440 Personal history of urinary (tract) infections; Z79.4 Long term (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 insulin; Z79.82 Long term (current) use of aspirin; Z79.899 Other long term (current) drug therapy
CPT/HCPCS: 0241U; 36415; 71046; 74176; 80048; 80053; 81001; 82010; 82803; 82947; 83605; 83880; 85025; 85027; 87040; 87086; 93005; 97161; 99285; J0696; J1644; J1885; J3370

== ENCOUNTER → 2023-11-29 17:49 | Outpatient (BNV) | payer OTHER, SELFPAY | PROVIDERS: Admitting Provider Internal Medicine; Emergency Provider Internal Medicine; PCP Internal Medicine; Visit Provider Internal Medicine Cardiovascular Disease | DX: A41.9 Sepsis, unspecified organism (principal) | CPT/HCPCS: 93010 ==

== ENCOUNTER → 2023-11-29 21:18 | Outpatient (BNV) | payer OTHER, SELFPAY | PROVIDERS: Admitting Provider Internal Medicine; Emergency Provider Internal Medicine; PCP Internal Medicine; Visit Provider Internal Medicine | DX: E11.65 Type 2 diabetes mellitus with hyperglycemia (principal); E11.22 Type 2 diabetes mellitus with diabetic chronic kidney disease; N18.32 Chronic kidney disease, stage 3b | CPT/HCPCS: 99223; 99232; 99239 ==

== ENCOUNTER 2023-12-02 03:53 | Emergency (ER) | payer OTHER, SELFPAY ==
[2023-12-02 03:54] VITALS: BP 118/64; BP 139/55; PULSE 90; PULSE 94; RESP 23; TEMP 36.8; O2SAT 97; O2SAT 98; BMI 46.4
--- NOTE | 2023-12-02 04:00 | ED_ITS ---
HPI - SOB/Dyspnea General Chief Complaint: Chest Pain Stated Complaint: SOB/ CP [id number] Time Seen by Provider: 12/02/23 04:00 Source: patient and EMS Mode of arrival: EMS Limitations: no limitations History of Present Illness HPI Narrative: Patient is 73 years old obese with history of COPD CKD sleep apnea recurrent UTIs and diabetes discharge at 11:00 11/30 comes back as while watching TV just prior to arrival she noticed sharp pain in mid chest patient was not coughing prior to that no shortness a breath chest pain is reproducible and gets worse when she takes a deep breath Related Data Home Medications ?Medication ?Instructions ?Recorded ?Confirmed bupropion HCl 150 mg 24 hr tablet, 150 mg PO DAILY 04/25/20 11/30/23 extended release oxygen-air delivery systems ##1 04/25/20 10/15/23 aspirin 81 mg chewable tablet 81 mg PO DAILY 10/01/21 11/30/23 trazodone 100 mg tablet 200 mg PO BEDTIME 10/01/21 11/30/23 cholecalciferol (vitamin D3) 25 25 mcg PO DAILY 01/04/22 11/30/23 mcg (1,000 unit) capsule hydroxyzine pamoate 25 mg capsule 25 mg PO DAILY 08/13/22 11/30/23 citalopram 10 mg tablet 10 mg PO DAILY 06/06/23 11/30/23 albuterol sulfate 90 mcg/actuation 2 puff inhalation Q4H PRN 09/02/23 11/30/23 aerosol inhaler (ProAir HFA) shortness of breath or wheezing ropinirole 2 mg tablet 2 mg PO BID 09/02/23 11/30/23 insulin detemir U-100 100 unit/mL 30 unit subcut BEDTIME 10/18/23 11/30/23 (3 mL) subcutaneous pen (Levemir FlexPen) gabapentin 300 mg capsule 300 mg PO QAM 10/27/23 11/30/23 gabapentin 300 mg capsule 900 mg PO BEDTIME 10/27/23 11/30/23 insulin detemir U-100 100 unit/mL 15 unit subcut QAM 11/30/23 11/30/23 (3 mL) subcutaneous pen (Levemir FlexPen) Previous Rx's ?Medication ?Instructions ?Recorded nebulizers (AeroEclipse II #1 ea 02/05/21 Nebulizer) lancets 28 gauge #100 ea 06/24/21 diaper,brief,adult,disposable #64 ea 05/06/22 lancets 30 gauge (OneTouch Delica #100 ea 09/16/22 Lancets) blood-glucose meter (OneTouch #1 ea 09/19/22 Ultra2 Meter) pen needle, diabetic 31 gauge x #100 ea 10/14/2209/25 (BD Ultra-Fine Mini Pen Needle) pen needle, diabetic 31 gauge x #1,200 ea 02/18/2309/25 walker #1 ea 05/20/23 Shower Chair #1 ea 05/27/23 montelukast 10 mg tablet 10 mg PO DAILY #90 tabs 08/06/23 diaper,brief,adult,disposable #200 ea 09/07/23 atorvastatin 80 mg tablet 80 mg PO DAILY 90 days #90 tabs 10/09/23 albuterol sulfate 2.5 mg/3 mL 2.5 mg (3 mL) inhalation Q4-6H PRN 11/03/23 (0.083 %) solution for nebulization shortness of breath or wheezing #75 mL blood sugar diagnostic (FreeStyle #100 ea 11/13/23 Lite Strips) blood sugar diagnostic (OneTouch #100 ea 11/13/23 Ultra Test strips) insulin aspart U-100 100 unit/mL See Protocol subcut TID #30 mL 12/01/23 (3 mL) subcutaneous pen (Novolog FlexPen U-100 Insulin aspart) lisinopril 5 mg tablet 10 mg (2 x 5 mg) PO DAILY #90 tabs 12/01/23 ibuprofen 600 mg tablet 600 mg PO Q6H PRN fever or pain 12/02/23 #30 tabs Allergies Allergy/AdvReac Type Severity Reaction Status Date / Time adhesive tape [ADHESIVE TAPE] Allergy Intermediate RASH Verified 12/02/23 04:05 trimethobenzamide Allergy Mild NAUSEA Verified 12/02/23 04:05 [From TIGAN] environmental Allergy Intermediate Nasal Uncoded 12/02/23 04:05 congestion Review of Systems 2 Review of Systems: Yes all other systems are reviewed and are negative PMFSH Past Medical History Medical History COPD (chronic obstructive pulmonary disease) Uncontrolled diabetes mellitus Depression, major, recurrent Dysuria Kidney stone on left side Diabetes 1.5, managed as type 1 Recurrent UTI COPD (chronic obstructive pulmonary disease) Respiratory failure with hypoxia Urinary tract infection Hypoxemia Morbid obesity CKD (chronic kidney disease) Anemia COPD exacerbation Allergic rhinitis ALDO (obstructive sleep apnea) Obesity (BMI 30-39.9) Constipation due to opioid therapy Osteoarthritis of left knee Hx SBO Hyperlipidemia CPAP (continuous positive airway pressure) dependence History of adrenal adenoma Osteochondroma of left femur Arthritis Diabetes Elevated cholesterol History of restless legs syndrome History of diverticulitis GERD (gastroesophageal reflux disease) Surgical History H/O excision of mass History of oophorectomy History of cholecystectomy History of appendectomy History of arthroscopy of left knee History of partial colectomy Hx of cataract extraction H/O exploratory laparotomy H/O colonoscopy History of surgery History of hysterectomy Family History Family History Father HTN (hypertension) Diabetes mellitus Mother HTN (hypertension) Liver cancer Social History Social History 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: Other 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 Other:: ex- has been staying over Housing: House Are you a primary care assistant to a significant other at home: No Do you presently have visiting nurse or other home services: Yes Unable to assess alcohol history related to: Unknown Alcohol intake: never Comment: PT SLEEPING Patient Tobacco Use Status: Never used Tobacco Smoked in Last 30 Days: No e-Cigarette/Vaping Use: Never Used Second Hand Smoke Exposure: No Use of substances other than those prescribed or required for medical reasons: No Advance Directives: Yes Advance Directives on File: Yes Advance Directives Date on File: 10/19/23 Do you have a plan to hurt others: No Plan service: No Current occupational status: retired Cognitive needs: No Hearing needs: No Vision needs: No Physical Exam 2 Vital Signs: Vital Signs: Last Vital Signs Temp 97.9 F 12/02/23 06:02 Pulse 89 12/02/23 06:02 Resp 20 12/02/23 06:02 BP 107/40 L 12/02/23 06:02 Pulse Ox 96 12/02/23 06:02 O2 Del Method Nasal Cannula 12/02/23 06:02 O2 Flow Rate 3 05/22/24 06:02 Oxygen Flow Rate 2 12/02/23 03:54 BMI result Body Mass Index 46.4 Appearance: Alert. Oriented X3. No acute distress. Obese Eyes: PERRLA, No Nystagmus ENT: Pharynx normal. Oral Mucosa moist mid chest wall tenderness Neck: Normal inspection. Neck supple. CVS: Normal heart rate and rhythm. Pulses normal. Respiratory: No respiratory distress. Equal air entry bilateral, no wheezing/rales/rhonchi Abdomen: Soft and nontender. Bowel sounds are present, no mass palpable, no CVA tenderness Skin: Skin warm and dry. Normal skin color. Normal skin turgor. Extremities: No lower extremity edema. No calf tenderness Neuro: Oriented X 3. Medications Administered Discontinued Medications Generic Name Dose Route Start Last Admin Trade Name Freq PRN Reason Stop Dose Admin Albuterol Sulfate 5 mg/ 0 mg 12/02/23 04:09 12/02/23 04:12 Albuterol/Ipratropium 3 ml INHALE 12/02/23 04:10 2.5 each ONCE ONE Administration Ketorolac Tromethamine 30 mg 12/02/23 04:25 12/02/23 04:57 Ketorolac Tromethamine 30 Mg/Ml Vial IVPUSH 12/02/23 04:26 30 mg ONCE ONE Administration Medical Decision Making Medical Decision Making [facility] Narrative: Patient with COPD sleep apnea diabetes discharge yesterday comes here with atypical chest pain without any ischemic EKG changes and normal troponin patient has reproducible patient feel comfortable after arrival in the ER will discharge patient back to home Differential Diagnosis Differential Diagnoses: The differential diagnosis associated with the presentation includes ACS/chest wall pain/COPD Lab Data [facility] Lab Attestation statement: I reviewed the patient's lab results. 12/02/23 04:14 12/02/23 04:14 Labs: Lab Results 12/02/23 Range/Units 04:14 WBC 12.2 H (4.8-10.8) X10*3/uL RBC 3.59 L (4.20-5.50) X10*6/uL Hgb 10.6 L (12.0-16.0) g/dl Hct 32.4 L (37.0-47.0) % MCV 90.3 (80.0-98.0) fL MCH 29.5 (27.0-33.0) pg MCHC 32.7 (31.0-35.0) g/dl RDW 14.5 (11.0-16.0) % Plt Count 206 (160-400) X10*3/uL MPV 11.7 (9.4-12.3) fL Immature Gran % (Auto) 0.7 H (0.0-0.4) % Neut % (Auto) 69.7 (45-73) % Lymph % (Auto) 21.7 (20-40) % [place] % (Auto) 6.1 (2-11) % Eos % (Auto) 1.6 (0-4) % Baso % (Auto) 0.2 (0-2) % Lymph # (Auto) 2.6 (1.2-4.9) X10*3/uL [place] # (Auto) 0.7 (0.1-1.2) X10*3/uL Eos # (Auto) 0.2 (0.0-0.4) X10*3/uL Baso # (Auto) 0.0 (0.0-0.2) X10*3/uL Abs Immat Gran (auto) 0.08 H (0.00-0.03) X10*3/uL Absolute Neuts (auto) 8.5 H (2.0-8.3) x10*3/uL Absolute Nucleated RBC 0.000 (0.0-0.012) X10*3/uL Nucleated RBC % (auto) 0.0 (0.0-0.2) /100WBC Sodium 140 (135-145) mmol/L Potassium 4.2 (3.3-5.1) mmol/L Chloride 101 (96-108) mmol/L Carbon Dioxide 28 (22-29) mmol/L Anion Gap 15 (12-20) BUN 36 H (9-16) mg/dL Creatinine 1.67 H (0.5-1.4) mg/dL Estim Creat Clear Calc 33.3 Estimated GFR 30 Random Glucose 301 H (60-115) mg/dL Calcium 9.1 (8.4-10.2) mg/dL Troponin I High Sens 2.8 (<3.5-17.0) ng/L Independent Interpretation I performed an independent interpretation of an: EKG Interpretation: Normal sinus rhythm heart rate 88 beats per minute normal intervals normal axis no acute ST T wave changes no acute ischemia Discharge Plan Discharge Clinical Impression: Acute chest wall pain Patient Disposition: Home, Self-Care Instructions: Chest Pain (ED) Additional Instructions: The pain is likely musculoskeletal chest pain Take ibuprofen for pain as needed Follow the PCP if pain continues Prescriptions: New ibuprofen 600 mg tablet 600 mg PO Q6H PRN (Reason: fever or pain) Qty: 30 0RF No Action (DME) lancets 28 gauge misc See Rx Instructions topical TID Qty: 100 3RF Rx Instructions: once a day (DME) diaper,brief,adult,disposable Misc See Rx Instructions .Route Qty: 64 5RF Rx Instructions: Use for stress incontinence (DME) lancets [OneTouch Delica Lancets] 30 gauge misc See Rx Instructions .Route Qty: 100 2RF Rx Instructions: Use to check blood sugar twice daily and when having symptoms of hypo/hyperglycemia (DME) blood-glucose meter [TAPQUADuch Ultra2 Meter] Misc See Rx Instructions .Route Qty: 1 0RF Rx Instructions: Use to check blood sugar twice daily and when having symptoms of hypo/hyperglycemia (DME) pen needle, diabetic [BD Ultra-Fine Mini Pen Needle] 31 gauge x 3/16 needle See Rx Instructions .Route Qty: 100 2RF Rx Instructions: Use to administer insulin twice daily (DME) walker Misc See Rx Instructions .Route Qty: 1 0RF Rx Instructions: Wheeled walker with seat and brakes (DME) Shower Chair Misc See Rx Instructions .Route Qty: 1 0RF Rx Instructions: Shower chair with back and arm rests montelukast 10 mg tablet 10 mg PO DAILY Qty: 90 1RF (DME) diaper,brief,adult,disposable Misc See Rx Instructions .Route Qty: 200 5RF Rx Instructions: Size medium pull up briefs atorvastatin 80 mg tablet 80 mg PO DAILY 90 Days Qty: 90 0RF albuterol sulfate 2.5 mg /3 mL (0.083 %) solution for nebulization 2.5 mg inhalation Q4-6H PRN (Reason: shortness of breath or wheezing) Qty: 75 0RF (DME) FreeStyle Lite Strips Strip See Rx Instructions .Route Qty: 100 6RF Rx Instructions: Use to check blood sugar 3 times a day as needed (DME) OneTouch Ultra Test Strip See Rx Instructions .Route Qty: 100 2RF Rx Instructions: Use to check blood sugar 3 times a day as needed (DME) AeroEclipse II Nebulizer Misc See Rx Instructions .ROUTE .MEDSUPPLY Qty: 1 0RF Rx Instructions: As directed hydroxyzine pamoate 25 mg capsule 25 mg PO DAILY trazodone 100 mg tablet 200 mg PO BEDTIME aspirin 81 mg Tablet,Chewable 81 mg PO DAILY cholecalciferol (vitamin D3) 25 mcg (1,000 unit) Capsule 25 mcg PO DAILY Levemir FlexPen 100 unit/mL (3 mL) insulin pen 30 unit subcut BEDTIME citalopram 10 mg tablet 10 mg PO DAILY gabapentin 300 mg capsule 300 mg PO QAM albuterol sulfate [ProAir HFA] 90 mcg/actuation HFA aerosol inhaler 2 puff inhalation Q4H PRN (Reason: shortness of breath or wheezing) ropinirole 2 mg tablet 2 mg PO BID gabapentin 300 mg capsule 900 mg PO BEDTIME Levemir FlexPen 100 unit/mL (3 mL) insulin pen 15 unit subcut QAM insulin aspart U-100 [Novolog FlexPen U-100 Insulin] 100 unit/mL (3 mL) insulin pen See Protocol subcut TID Qty: 30 0RF Protocol: Insulin Correction Scale Less than or equal to 110 ---- Give (units): 0 111 to 150 Give (units): 0 151 to 200 Give (units): 2 201 to 250 Give (units): 6 251 to 300 Give (units): 8 301 to 350 Give (units): 10 Greater than 350 Give (units): 12 Call MD if Blood Glucose > : 350 Rx Instructions: Up to 10 units before each meal according to sliding scale lisinopril 5 mg tablet 10 mg PO DAILY Qty: 90 0RF (DME) pen needle, diabetic 31 gauge x 3/16 needle See Rx Instructions subcut TID Qty: 1200 1RF Rx Instructions: 4x a day bupropion HCl 150 mg tablet extended release 24 hr 150 mg PO DAILY (DME) oxygen-air delivery systems Device See Rx Instructions .ROUTE .MEDSUPPLY Qty: 1 Rx Instructions: As directed Print Language: Tongan
--- NOTE | 2023-12-02 04:03 | ECG_ITS ---
Test Reason : CHEST PAIN Blood Pressure : / mmHG Vent. Rate : 088 BPM Atrial Rate : 088 BPM P-R Int : 154 ms QRS Dur : 082 ms QT Int : 372 ms P-R-T Axes : 043 021 025 degrees QTc Int : 450 ms Normal sinus rhythm Normal ECG When compared with ECG of 29-NOV-2023 17:59, No significant change was found Referred By: Cruz Martini Electronically Signed By:RAMSEY ZARATE MD
[2023-12-02] MEDS: Albuterol Sulfate 5 MG, Albuterol/Iprat 2.5/0.5MG 3 ML 3 ML INHALE (04:12)
[2023-12-02 04:14] VITALS: PULSE 89; RESP 20; O2SAT 97
[2023-12-02 04:19] LABS: MANUAL DIFF FLAG NO
--- NOTE | 2023-12-02 04:20 | PC.NURSE ---
pt biba from home, a&ox4, respirations even and unlabored, pt reporting onset of breath x3 hours with onset of left sided chest pain. ems gave pt 324mg of asprin in the ambulance, a duoneb and 100ml of normal saline. pt denies sob, n.v.d. pt reports [place] [facility] [place]cd. pt is on 2L nasal cannula baseline 98-99%. pt normal sinus on tele 86.90bpm. respiratory at bedside to give pt treatment.
[2023-12-02 04:21] LABS: Basophils Percent Auto 0.2 % (0-2); Eosinophils Absolute Auto 0.2 X10*3/uL (0.0-0.4); Eosinophils Percent Auto 1.6 % (0-4); Hematocrit 32.4 % (37.0-47.0); Hemoglobin 10.6 g/dl (12.0-16.0); Imm Gran Abs Auto 0.08 X10*3/uL (0.00-0.03); Imm Gran Pct Auto 0.7 % (0.0-0.4); Lymphocytes Absolute Auto 2.6 X10*3/uL (1.2-4.9); Lymphocytes Percent Auto 21.7 % (20-40); Mean Corpuscular HGB Conc 32.7 g/dl (31.0-35.0); Mean Corpuscular Hemoglobin 29.5 pg (27.0-33.0); Mean Corpuscular Volume 90.3 fL (80.0-98.0); Mean Platelet Volume 11.7 fL (9.4-12.3); Monocytes Absolute Auto 0.7 X10*3/uL (0.1-1.2); Monocytes Percent Auto 6.1 % (2-11); Neutrophils Absolute Auto 8.5 x10*3/uL (2.0-8.3); Neutrophils Percent Auto 69.7 % (45-73); Platelet Count 206 X10*3/uL (160-400); Red Blood Count 3.59 X10*6/uL (4.20-5.50); Red Cell Distribution Width 14.5 % (11.0-16.0); White Blood Count 12.2 X10*3/uL (4.8-10.8)
[2023-12-02 04:39] LABS: Anion Gap 15 (12-20); Blood Urea Nitrogen 36 mg/dL (9-16); Calcium 9.1 mg/dL (8.4-10.2); Carbon Dioxide 28 mmol/L (22-29); Chloride 101 mmol/L (96-108); Creatinine Clr Calc Pharmacy 33.3; Estimated Glomerular Filt Rate 30; Glucose Random 301 mg/dL (60-115); Potassium 4.2 mmol/L (3.3-5.1); Sodium 140 mmol/L (135-145)
[2023-12-02 04:48] LABS: Troponin-I High Sensitivity 2.8 ng/L (<3.5-17.0)
[2023-12-02] MEDS: Ketorolac Tromethamine 30 MG/ML VIAL IVPUSH (04:57)
[2023-12-02 06:02] VITALS: BP 107/40; PULSE 89; RESP 20; TEMP 36.6; O2SAT 96
[2023-12-02 07:55] VITALS: BP 109/44; PULSE 85; RESP 22; TEMP 36.8; O2SAT 95
[2023-12-02 08:42] LABS: Glucose, Whole Blood 182 mg/dL (60-115)
[2023-12-02 08:47] VITALS: BP 109/44; PULSE 85; RESP 22; TEMP 36.8; O2SAT 95
== END 2023-12-02 08:49 | disposition home or self-care (01) ==
PROVIDERS: Emergency Provider Internal Medicine
DX: R07.89 Other chest pain (principal); E13.22 Other specified diabetes mellitus with diabetic chronic kidney disease; N18.9 Chronic kidney disease, unspecified; Z79.899 Other long term (current) drug therapy; Z87.440 Personal history of urinary (tract) infections
CPT/HCPCS: 36415; 80048; 82947; 84484; 85025; 93005; 94640; 96374; 99284; 99285; J1885

== ENCOUNTER → 2023-12-02 04:03 | Outpatient (BNV) | payer OTHER, SELFPAY | PROVIDERS: Emergency Provider Internal Medicine; Visit Provider Internal Medicine Cardiovascular Disease | DX: R07.9 Chest pain, unspecified (principal) | CPT/HCPCS: 93010 ==

== ENCOUNTER 2023-12-04 22:00 | Emergency (ER) | payer OTHER, SELFPAY ==
--- NOTE | ~2023-12-04 | XR_ITS ---
EXAMINATION: XR LUMBOSACRAL SPINE CLINICAL INFORMATION: Low back pain. COMPARISON: 07/17/2021. TECHNIQUE: Three views of the lumbosacral spine. FINDINGS: The alignment is within normal limits. There is diffuse [id number] lumbar disc degenerative change most pronounced at L4-L5 and L5-S1 with loss of disc space, endplate change and osteophyte formation. No fracture is seen. The soft tissues are unremarkable. A calcification overlies the lower pole of the left kidney measuring 5 to 6 mm. XR/XR lumbar spine 2-3V IMPRESSION: 1. [id number] degenerative changes in the lumbar spine. No acute findings identified. 2. Possible left renal calculus.
[2023-12-04 22:11] VITALS: BP 129/55; BP 178/90; PULSE 88; PULSE 92; RESP 18; TEMP 36.4; O2SAT 95; O2SAT 98; BMI 44.8
[2023-12-04 22:17] VITALS: BP 129/55; PULSE 88; RESP 18; TEMP 36.4; O2SAT 95
[2023-12-04 22:28] LABS: Basophils Percent Auto 0.2 % (0-2); Eosinophils Absolute Auto 0.3 X10*3/uL (0.0-0.4); Eosinophils Percent Auto 2.5 % (0-4); Hematocrit 34.4 % (37.0-47.0); Hemoglobin 10.9 g/dl (12.0-16.0); Imm Gran Abs Auto 0.06 X10*3/uL (0.00-0.03); Imm Gran Pct Auto 0.6 % (0.0-0.4); Lymphocytes Absolute Auto 2.5 X10*3/uL (1.2-4.9); Lymphocytes Percent Auto 23.6 % (20-40); MANUAL DIFF FLAG NO; Mean Corpuscular HGB Conc 31.7 g/dl (31.0-35.0); Mean Corpuscular Hemoglobin 28.7 pg (27.0-33.0); Mean Corpuscular Volume 90.5 fL (80.0-98.0); Mean Platelet Volume 11.4 fL (9.4-12.3); Monocytes Absolute Auto 0.9 X10*3/uL (0.1-1.2); Monocytes Percent Auto 8.1 % (2-11); Platelet Count 202 X10*3/uL (160-400); Red Cell Distribution Width 14.6 % (11.0-16.0); White Blood Count 10.8 X10*3/uL (4.8-10.8)
--- NOTE | 2023-12-04 22:30 | ED.GENADULT ---
HPI - General Adult General Chief complaint: Back Pain/Injury Stated complaint: dx renal failure, bilateral kidney pain, SOB, CP Time Seen by Provider: 12/04/23 22:30 Source: patient and RN notes reviewed Limitations: no limitations History of Present Illness HPI narrative: 73-year-old female who has a history of diabetes, COPD O2 dependent, history of UTI, ALDO, return to the emergency department complaining of right low back pain. Patient states symptoms began while she was sitting at home. She denies any trauma or falls. Patient states he ambulates in her home without difficulty. Patient was in the emergency department for flank pain, chest pain on November 28 and December 01 with negative workups. Patient states she has been taking Tylenol for the pain. Is primarily located in the right low back. She denies any paresthesia or paralysis. No bowel or bladder incontinence. Related Data Home Medications ?Medication ?Instructions ?Recorded ?Confirmed bupropion HCl 150 mg 24 hr tablet, 150 mg PO DAILY 04/25/20 11/30/23 extended release oxygen-air delivery systems ##1 04/25/20 10/15/23 aspirin 81 mg chewable tablet 81 mg PO DAILY 10/01/21 11/30/23 trazodone 100 mg tablet 200 mg PO BEDTIME 10/01/21 11/30/23 cholecalciferol (vitamin D3) 25 25 mcg PO DAILY 01/04/22 11/30/23 mcg (1,000 unit) capsule hydroxyzine pamoate 25 mg capsule 25 mg PO DAILY 08/13/22 11/30/23 citalopram 10 mg tablet 10 mg PO DAILY 06/06/23 11/30/23 albuterol sulfate 90 mcg/actuation 2 puff inhalation Q4H PRN 09/02/23 11/30/23 aerosol inhaler (ProAir HFA) shortness of breath or wheezing ropinirole 2 mg tablet 2 mg PO BID 09/02/23 11/30/23 insulin detemir U-100 100 unit/mL 30 unit subcut BEDTIME 10/18/23 11/30/23 (3 mL) subcutaneous pen (Levemir FlexPen) gabapentin 300 mg capsule 300 mg PO QAM 10/27/23 11/30/23 gabapentin 300 mg capsule 900 mg PO BEDTIME 10/27/23 11/30/23 insulin detemir U-100 100 unit/mL 15 unit subcut QAM 11/30/23 11/30/23 (3 mL) subcutaneous pen (Levemir FlexPen) Previous Rx's ?Medication ?Instructions ?Recorded nebulizers (AeroEclipse II #1 ea 02/05/21 Nebulizer) lancets 28 gauge #100 ea 06/24/21 diaper,brief,adult,disposable #64 ea 05/06/22 lancets 30 gauge (OneTouch Delica #100 ea 09/16/22 Lancets) blood-glucose meter (OneTouch #1 ea 09/19/22 Ultra2 Meter) pen needle, diabetic 31 gauge x #100 ea 10/14/2209/25 (BD Ultra-Fine Mini Pen Needle) pen needle, diabetic 31 gauge x #1,200 ea 02/18/2309/25 walker #1 ea 05/20/23 Shower Chair #1 ea 05/27/23 montelukast 10 mg tablet 10 mg PO DAILY #90 tabs 08/06/23 diaper,brief,adult,disposable #200 ea 09/07/23 atorvastatin 80 mg tablet 80 mg PO DAILY 90 days #90 tabs 10/09/23 blood sugar diagnostic (FreeStyle #100 ea 11/13/23 Lite Strips) blood sugar diagnostic (OneTouch #100 ea 11/13/23 Ultra Test strips) insulin aspart U-100 100 unit/mL See Protocol subcut TID #30 mL 12/01/23 (3 mL) subcutaneous pen (Novolog FlexPen U-100 Insulin aspart) lisinopril 5 mg tablet 10 mg (2 x 5 mg) PO DAILY #90 tabs 12/01/23 ibuprofen 600 mg tablet 600 mg PO Q6H PRN fever or pain 12/02/23 #30 tabs albuterol sulfate 2.5 mg/3 mL 2.5 mg (3 mL) inhalation Q4-6H PRN 12/04/23 (0.083 %) solution for nebulization shortness of breath or wheezing #75 mL Allergies Allergy/AdvReac Type Severity Reaction Status Date / Time adhesive tape [ADHESIVE TAPE] Allergy Intermediate RASH Verified 12/04/23 22:14 trimethobenzamide Allergy Mild NAUSEA Verified 12/04/23 22:14 [From TIGAN] environmental Allergy Intermediate Nasal Uncoded 12/04/23 22:14 congestion Review of Systems Constitutional: Constitutional: Denies chills, Denies fever(s) and Denies headache(s) Eyes: Eyes: Denies change in vision and Denies other (No redness.) ENT: Denies headache(s), Denies nasal congestion, Denies nasal discharge and Denies sore throat Cardiovascular: Cardiovascular: Denies chest pain, Denies palpitations, Denies dyspnea, Denies dyspnea on exertion and Denies orthopnea Respiratory: Respiratory: Denies cough, Denies dyspnea and Denies dyspnea on exertion Gastrointestinal: Gastrointestinal: Denies abdominal pain, Denies melena, Denies hematochezia, Denies diarrhea, Denies nausea and Denies vomiting Genitourinary: Genitourinary: Denies dysuria and Denies urinary urgency Musculoskeletal: Musculoskeletal: Reports back pain, Denies stiffness and Denies tingling Integumentary/Breasts: Skin/Breast: Denies rash Neurologic: Denies headache(s), Denies focal weakness and Denies tingling Psychiatric: Psychiatric: Denies depression Endocrine: Endocrine: Denies palpitations PMFSH Past Medical History Source: old records reviewed and nursing notes reviewed Medical History COPD (chronic obstructive pulmonary disease) Uncontrolled diabetes mellitus Depression, major, recurrent Dysuria Kidney stone on left side Diabetes 1.5, managed as type 1 Recurrent UTI COPD (chronic obstructive pulmonary disease) Respiratory failure with hypoxia Urinary tract infection Hypoxemia Morbid obesity CKD (chronic kidney disease) Anemia COPD exacerbation Allergic rhinitis ALDO (obstructive sleep apnea) Obesity (BMI 30-39.9) Constipation due to opioid therapy Osteoarthritis of left knee Hx SBO Hyperlipidemia CPAP (continuous positive airway pressure) dependence History of adrenal adenoma Osteochondroma of left femur Arthritis Diabetes Elevated cholesterol History of restless legs syndrome History of diverticulitis GERD (gastroesophageal reflux disease) Surgical History H/O excision of mass History of oophorectomy History of cholecystectomy History of appendectomy History of arthroscopy of left knee History of partial colectomy Hx of cataract extraction H/O exploratory laparotomy H/O colonoscopy History of surgery History of hysterectomy Family History Family History Father HTN (hypertension) Diabetes mellitus Mother HTN (hypertension) Liver cancer Social History Social History 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: Other 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 Other:: ex- has been staying over Housing: House Are you a primary personal care home administrator to a significant other at home: No Do you presently have visiting nurse or other home services: Yes Unable to assess alcohol history related to: Unknown Alcohol intake: never Comment: PT SLEEPING Patient Tobacco Use Status: Never used Tobacco e-Cigarette/Vaping Use: Never Used Second Hand Smoke Exposure: No Advance Directives: Yes Advance Directives on File: Yes Advance Directives Date on File: 10/19/23 Do you have a plan to hurt others: No Plan service: No Current occupational status: retired Cognitive needs: No Hearing needs: No Vision needs: No Physical Exam ED Vital Signs: Vital Signs - 24 hr 12/04/23 22:11 12/04/23 22:17 12/05/23 01:06 Temperature 97.5 F 97.5 F 97.9 F Pulse Rate 88 88 89 Respiratory Rate 18 18 16 Blood Pressure 129/55 L 129/55 L 117/41 L Pulse Oximetry 95 95 99 Oxygen Delivery Method Nasal Cannula Nasal Cannula Nasal Cannula Oxygen Flow Rate 2 2 BMI result Body Mass Index 44.8 Const General: cooperative, no acute distress, alert and awake Resp Auscultation: clear to auscultation bilaterally Cardio Rate: regular rate Rhythm: regular rhythm GI Other: Abdomen is soft and nontender throughout. No peritoneal signs. Back/Spine/Pelvis Other: School Manager is 5/5 bilaterally. Full range of motion of all extremities. Able to straight leg raise bilaterally. Tenderness along the right lumbar region, worse with twisting to the left. Skin Other: No ecchymosis noted to the flank. Course Course Course Narrative: December 04, 2023, 11:15 p.m. despite discussing with the patient earlier regarding her back pain, and denying having any back pain at her previous visits, confirming it was upper, flank pain patient at this time states ?I lied and I had that same pain the other day?. Urinalysis pending at this time. Lumbar spine x-ray preliminary reading without any acute process. Urinalysis negative for infection. Remaining labs have been reviewed with the patient as well. Patient will be discharged home. She feels comfortable with this plan. No further questions at this time. Medical Decision Making Medical Decision Making [facility] Narrative: 73-year-old female who has a history of diabetes, COPD oxygen dependent, UTI, ALDO, among multiple other medical issues, presents complaining of right lumbar pain that began while at rest. Low suspicion for acute trauma or fracture. Suspect musculoskeletal in nature given history and physical exam findings. Check x-ray since this is a new finding and was not present at her previous visits from several days ago. Consideration for CT however given her recent scan without any acute findings, will defer at this time. History of UTI, check urine. Patient also reports her glucose levels have been elevated recently despite compliance with her medications. Check labs. Differential Diagnosis Differential Diagnoses: The differential diagnosis associated with the presentation includes Compression fracture Disc herniation Muscle spasm Muscle strain UTI Metabolic abnormality Admission/Observation Consideration of admission/observation: Escalation of care including admission/observation considered Consideration for admission if medically warranted Lab Data [facility] Lab Attestation statement: I reviewed the patient's lab results. 12/04/23 22:24 12/04/23 22:24 Labs: Lab Results 12/04/23 12/04/23 Range/Units 22:24 23:54 WBC 10.8 (4.8-10.8) X10*3/uL RBC 3.80 L (4.20-5.50) X10*6/uL Hgb 10.9 L (12.0-16.0) g/dl Hct 34.4 L (37.0-47.0) % MCV 90.5 (80.0-98.0) fL MCH 28.7 (27.0-33.0) pg MCHC 31.7 (31.0-35.0) g/dl RDW 14.6 (11.0-16.0) % Plt Count 202 (160-400) X10*3/uL MPV 11.4 (9.4-12.3) fL Immature Gran % (Auto) 0.6 H (0.0-0.4) % Neut % (Auto) 65.0 (45-73) % Lymph % (Auto) 23.6 (20-40) % [place] % (Auto) 8.1 (2-11) % Eos % (Auto) 2.5 (0-4) % Baso % (Auto) 0.2 (0-2) % Lymph # (Auto) 2.5 (1.2-4.9) X10*3/uL [place] # (Auto) 0.9 (0.1-1.2) X10*3/uL Eos # (Auto) 0.3 (0.0-0.4) X10*3/uL Baso # (Auto) 0.0 (0.0-0.2) X10*3/uL Abs Immat Gran (auto) 0.06 H (0.00-0.03) X10*3/uL Absolute Neuts (auto) 7.0 (2.0-8.3) x10*3/uL Absolute Nucleated RBC 0.000 (0.0-0.012) X10*3/uL Nucleated RBC % (auto) 0.0 (0.0-0.2) /100WBC Sodium 142 (135-145) mmol/L Potassium 4.2 (3.3-5.1) mmol/L Chloride 107 (96-108) mmol/L Carbon Dioxide 27 (22-29) mmol/L Anion Gap 12 (12-20) BUN 29 H (9-16) mg/dL Creatinine 1.47 H (0.5-1.4) mg/dL Estim Creat Clear Calc 37.1 Estimated GFR 35 Random Glucose 174 H (60-115) mg/dL Calcium 9.2 (8.4-10.2) mg/dL Total Bilirubin 0.3 (0.0-1.0) mg/dL AST 15 (5-31) U/L ALT 17 (0-31) U/L Alkaline Phosphatase 32 L (39-117) U/L Total Protein 6.3 L (6.5-8.0) g/dL Albumin 3.6 (3.5-5.0) g/dL Urine Color Yellow Urine Appearance Clear Urine pH 5.5 (5.0-9.0) Ur Specific [place] 1.010 (1.005-1.025) Urine Protein Negative (Neg-Trace) mg/dL Urine Glucose (UA) 100 H (Negative) mg/dL Urine Ketones Negative (Negative) mg/dL Urine Blood Negative (Negative) Urine Nitrite Negative (Negative) Ur Leukocyte Esterase Trace H (Negative) Urine RBC 0-2 (0-2) /HPF Urine WBC 0-5 (0-5) /HPF Ur Squamous Epith Cells 3-5 (0-2) /HPF Urine Bacteria None Seen (None Seen) Hyaline Casts 0-2 (0-2) /LPF Independent Interpretation I performed an independent interpretation of an: Plain X-Ray Interpretation: Preliminary reading of lumbar spine x-ray does not reveal any acute process. External Record Review External record reviewed: Inpatient record Tests considered The following testing was considered but not selected: CT Prescription Management I considered prescription management with: Pain Medication Chronic Conditions Patient?s care impacted by: Diabetes and Hypertension Discharge Plan Discharge Clinical Impression: Back pain Qualifiers: Back pain location: low back pain Chronicity: chronic Back pain laterality: right Sciatica presence: without sciatica Qualified Code(s): M54.50 - Low back pain, unspecified Patient Disposition: Home, Self-Care Instructions: Chronic Back Pain (DC) Additional Instructions: Rest. Avoid strenuous activity. You may continue to take Tylenol as directed. Your blood work and x-rays today were within the acceptable ranges. Your kidney function has improved since her last visit. Follow-up with your primary care provider. Call this week to schedule a follow-up appointment. Return to the emergency department if you have any worsening of symptoms, or any concerns. Get well soon! Prescriptions: No Action (DME) lancets 28 gauge misc See Rx Instructions topical TID Qty: 100 3RF Rx Instructions: once a day (DME) diaper,brief,adult,disposable Misc See Rx Instructions .Route Qty: 64 5RF Rx Instructions: Use for stress incontinence (DME) lancets [OneTouch Delica Lancets] 30 gauge misc See Rx Instructions .Route Qty: 100 2RF Rx Instructions: Use to check blood sugar twice daily and when having symptoms of hypo/hyperglycemia (DME) blood-glucose meter [OneTouch Ultra2 Meter] Misc See Rx Instructions .Route Qty: 1 0RF Rx Instructions: Use to check blood sugar twice daily and when having symptoms of hypo/hyperglycemia (DME) pen needle, diabetic [BD Ultra-Fine Mini Pen Needle] 31 gauge x 3/16 needle See Rx Instructions .Route Qty: 100 2RF Rx Instructions: Use to administer insulin twice daily (DME) walker Misc See Rx Instructions .Route Qty: 1 0RF Rx Instructions: Wheeled walker with seat and brakes (DME) Shower Chair Misc See Rx Instructions .Route Qty: 1 0RF Rx Instructions: Shower chair with back and arm rests montelukast 10 mg tablet 10 mg PO DAILY Qty: 90 1RF (DME) diaper,brief,adult,disposable Misc See Rx Instructions .Route Qty: 200 5RF Rx Instructions: Size medium pull up briefs atorvastatin 80 mg tablet 80 mg PO DAILY 90 Days Qty: 90 0RF (DME) FreeStyle Lite Strips Strip See Rx Instructions .Route Qty: 100 6RF Rx Instructions: Use to check blood sugar 3 times a day as needed (DME) OneTouch Ultra Test Strip See Rx Instructions .Route Qty: 100 2RF Rx Instructions: Use to check blood sugar 3 times a day as needed albuterol sulfate 2.5 mg /3 mL (0.083 %) solution for nebulization 2.5 mg inhalation Q4-6H PRN (Reason: shortness of breath or wheezing) Qty: 75 0RF (DME) AeroEclipse [place] [facility] [place] Instructions .ROUTE .MEDSUPPLY Qty: 1 0RF Rx Instructions: As directed hydroxyzine pamoate 25 mg capsule 25 mg PO DAILY trazodone 100 mg tablet 200 mg PO BEDTIME aspirin 81 mg Tablet,Chewable 81 mg PO DAILY cholecalciferol (vitamin D3) 25 mcg (1,000 unit) Capsule 25 mcg PO DAILY Levemir FlexPen 100 unit/mL (3 mL) insulin pen 30 unit subcut BEDTIME citalopram 10 mg tablet 10 mg PO DAILY gabapentin 300 mg capsule 300 mg PO QAM albuterol sulfate [ProAir HFA] 90 mcg/actuation HFA aerosol inhaler 2 puff inhalation Q4H PRN (Reason: shortness of breath or wheezing) ropinirole 2 mg tablet 2 mg PO BID gabapentin 300 mg capsule 900 mg PO BEDTIME Levemir FlexPen 100 unit/mL (3 mL) insulin pen 15 unit subcut QAM insulin aspart U-100 [Novolog FlexPen U-100 Insulin] 100 unit/mL (3 mL) insulin pen See Protocol subcut TID Qty: 30 0RF Protocol: Insulin Correction Scale Less than or equal to 110 ---- Give (units): 0 111 to 150 Give (units): 0 151 to 200 Give (units): 2 201 to 250 Give (units): 6 251 to 300 Give (units): 8 301 to 350 Give (units): 10 Greater than 350 Give (units): 12 Call MD if Blood Glucose > : 350 Rx Instructions: Up to 10 units before each meal according to sliding scale lisinopril 5 mg tablet 10 mg PO DAILY Qty: 90 0RF ibuprofen 600 mg tablet 600 mg PO Q6H PRN (Reason: fever or pain) Qty: 30 0RF (DME) pen needle, diabetic 31 gauge x 3/16 needle See Rx Instructions subcut TID Qty: 1200 1RF Rx Instructions: 4x a day bupropion HCl 150 mg tablet extended release 24 hr 150 mg PO DAILY (DME) oxygen-air delivery systems Device See Rx Instructions .ROUTE .MEDSUPPLY Qty: 1 Rx Instructions: As directed Print Language: Filipino
[2023-12-04 22:47] LABS: Alanine Aminotransferase 17 U/L (0-31); Albumin Level 3.6 g/dL (3.5-5.0); Alkaline Phosphatase 32 U/L (39-117); Anion Gap 12 (12-20); Aspartate Amino Transferase 15 U/L (5-31); Bilirubin Total 0.3 mg/dL (0.0-1.0); Blood Urea Nitrogen 29 mg/dL (9-16); Calcium 9.2 mg/dL (8.4-10.2); Carbon Dioxide 27 mmol/L (22-29); Chloride 107 mmol/L (96-108); Creatinine Clr Calc Pharmacy 37.1; Estimated Glomerular Filt Rate 35; Glucose Random 174 mg/dL (60-115); Potassium 4.2 mmol/L (3.3-5.1); Sodium 142 mmol/L (135-145); Total Protein 6.3 g/dL (6.5-8.0)
[2023-12-05 00:04] LABS: Appearance Urine Clear; Color Urine Yellow; Glucose Urine UA 100 mg/dL (Negative); Leukocyte Esterase Urine Trace (Negative); Nitrite Urine Negative (Negative); PH 5.5 (5.0-9.0); UMIC TRIGGER UA YES; Urine Blood Negative (Negative); Urine Ketones Negative (Negative); Urine Protein Negative (Neg-Trace)
[2023-12-05 00:16] LABS: Bacteria Urine None Seen (None Seen); Hyaline Casts Urine 0-2 /LPF (0-2); RBC Urine 0-2 /HPF (0-2); WBC Urine 0-5 /HPF (0-5)
[2023-12-05 00:50] VITALS: BP 117/41; PULSE 89; RESP 16; TEMP 36.6; O2SAT 99
[2023-12-05 01:06] VITALS: BP 117/41; PULSE 89; RESP 16; TEMP 36.6; O2SAT 99
== END 2023-12-05 00:50 | disposition home or self-care (01) ==
PROVIDERS: Physician Assistant; Emergency Provider Emergency Medicine
DX: M54.50 Low back pain, unspecified (principal); J44.9 Chronic obstructive pulmonary disease, unspecified; Z99.81 Dependence on supplemental oxygen; E13.22 Other specified diabetes mellitus with diabetic chronic kidney disease; N18.9 Chronic kidney disease, unspecified; Z79.4 Long term (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 insulin
CPT/HCPCS: 36415; 72100; 80053; 81001; 85025; 99283

== ENCOUNTER 2023-12-09 13:44 | Outpatient (AMB) | payer OTHER, SELFPAY ==
[2023-12-09 13:51] VITALS: BP 128/58; PULSE 103; O2SAT 96; BMI 44.0
--- NOTE | 2023-12-09 13:51 | A.OFFPC_ITS ---
Vital Signs 12/09/23 13:51 Height 5 ft Weight 225 lb 6 oz BMI 44.0 BP 128/58 L Blood Pressure Location Rt brachial Position Sitting Pulse 103 H Pulse Source Pulse Oximeter Pulse Oximetry (%) 96 Oxygen Delivery Method Room Air Intake [place] Reasons[place] [facility] [place] Allergies adhesive tape [ADHESIVE TAPE] Allergy (Intermediate, Verified 12/09/23 13:55) RASH trimethobenzamide [From TIGAN] Allergy (Mild, Verified 12/09/23 13:55) NAUSEA NSAIDS (Non-Steroidal Anti-Inflamma Adverse Reaction (Mild, Verified 12/09/23 14:22) Nephropathy environmental Allergy (Intermediate, Uncoded 12/04/23 22:14) Nasal congestion Medication List - Last Reconciled 12/09/23 by Shelbi Perez MD albuterol sulfate 90 mcg/actuation (ProAir HFA) 2 puffs inhalation Q4H PRN albuterol sulfate 2.5 mg (3 mL) inhalation Q4-6H PRN aspirin 81 mg PO DAILY atorvastatin 80 mg PO DAILY 90 days blood sugar diagnostic ([employer] Ultra Test strips) Use to check blood sugar 3 times a day as needed blood sugar diagnostic (FreeStyle Lite Strips) Use to check blood sugar 3 times a day as needed blood-glucose meter (Wright[employer] Ultra2 Meter) Use to check blood sugar twice daily and when having symptoms of hypo/hyperglycemia bupropion HCl XL 150 mg PO DAILY cholecalciferol (vitamin D3) 25 mcg PO DAILY citalopram 10 mg PO DAILY diaper,brief,adult,disposable Size medium pull up briefs diaper,brief,adult,disposable Use for stress incontinence gabapentin 900 mg PO BEDTIME gabapentin 300 mg PO QAM hydroxyzine pamoate 25 mg PO DAILY ibuprofen 600 mg PO Q6H PRN insulin aspart U-100 (Novolog FlexPen U-100 Insulin aspart) See Protocol sliding scale doses subcut TID insulin detemir U-100 (Levemir FlexPen) 30 units subcut BEDTIME insulin detemir U-100 (Levemir FlexPen) 15 units subcut QAM lancets once a day lancets (3-V BiosciencesTouch Delica Lancets) Use to check blood sugar twice daily and when having symptoms of hypo/hyperglycemia lisinopril 10 mg (2 x 5 mg) PO DAILY montelukast 10 mg PO DAILY nebulizers (AeroEclipse II Nebulizer) As directed oxygen-air delivery systems As directed pen needle, diabetic (BD Ultra-Fine Mini Pen Needle) Use to administer insulin twice daily pen needle, diabetic 4x a day ropinirole 2 mg PO BID Shower Chair Shower chair with back and arm rests trazodone 200 mg PO BEDTIME walker Wheeled walker with seat and brakes Tobacco use date assessed: 12/09/23 Fall risk assessment: No Falls in past year Last assessed Fall Risk: 12/09/23 Dental Screening Dental Screen Date: 12/09/23 Did you have a dental visit in the last 12 months?: No Did you have a dental problem in the last 6 months where you did not have access to dental care?: No Was dental information given to patient?: No HPI [facility] [place] HPI Details Patient is a 73-year-old female who was in emergency room [facility] of this month. Patient have a history of diabetes, COPD oxygen dependent, history of recurrent UTIs, obstructive sleep apnea. Has been going to emergency room recurrently for different reasons. She presented which chief complaint of flank pain bilateral and shortness a breath along with chest pain She was also in emergency room November 28 and of this month with negative workup. She pointed to worse right lower back the site of pain. Lumbar x-ray did not show anything acute, urine analysis was negative for infection After evaluation patient was discharged Her hemoglobin came back at 10.3 with hematocrit of 34.4 Creatinine 1.47 Electrolytes were within normal limit She continued to have pain lower lumbar radiating to right hip, I have placed a referral to pain management Due to her obesity patient is not very mobile, she need a dietary instructions and will be meeting with a dietitian, we will book appointment She is also due for diabetic foot exam, referral placed She has gotten script for Trulicity finally, But she has not started taking it. She will start and we will book 2 week follow-up appointment to see how her sugars are responding. [facility] Medical History COPD (chronic obstructive pulmonary disease) Uncontrolled diabetes mellitus Depression, major, recurrent Dysuria Kidney stone on left side Diabetes 1.5, managed as type 1 Recurrent UTI COPD (chronic obstructive pulmonary disease) Respiratory failure with hypoxia Urinary tract infection Hypoxemia Morbid obesity CKD (chronic kidney disease) Anemia COPD exacerbation Allergic rhinitis ALDO (obstructive sleep apnea) Obesity (BMI 30-39.9) Constipation due to opioid therapy Osteoarthritis of left knee Hx SBO Hyperlipidemia CPAP (continuous positive airway pressure) dependence History of adrenal adenoma Osteochondroma of left femur Arthritis Diabetes Elevated cholesterol History of restless legs syndrome History of diverticulitis GERD (gastroesophageal reflux disease) Surgical History H/O excision of mass History of oophorectomy History of cholecystectomy History of appendectomy History of arthroscopy of left knee History of partial colectomy Hx of cataract extraction H/O exploratory laparotomy H/O colonoscopy History of surgery History of hysterectomy Family History Father HTN (hypertension) Diabetes mellitus Mother HTN (hypertension) Liver cancer Social History 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: Other 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 Other:: ex- has been staying over Housing: House Are you a primary animal care technician to a significant other at home: No Do you presently have visiting nurse or other home services: Yes Unable to assess alcohol history related to: Unknown Alcohol intake: never Comment: PT SLEEPING Patient Tobacco Use Status: Never used Tobacco e-Cigarette/Vaping Use: Never Used Second Hand Smoke Exposure: No Advance Directives Date on File: 10/19/23 service: No Current occupational status: retired Cognitive needs: No Hearing needs: No Vision needs: No Female Reproductive History Menstrual Age of Menarche: 13 Questionnaire Thrive Questionnaire Date Thrive assessed: 11/30/23 AUDIT C Alcohol Use Questionnaire (AUDIT-C) 1. How often do you have a drink containing alcohol?: Never 3. How often do you have six or more drinks on one occasion?: Never Total Score: 0 Score Reviewed/Action Taken: Yes RACHNA-7 AMB Questionnaire RACHNA-7 Date RACHNA - 7 assessed: 10/15/23 Source: Developed by Drs. Ellis Child, Nimo Castillo, Miguel East and colleagues, with an educational miki from [employer]. Review of Systems Const Denies chills and Denies fever(s) ENT Denies epistaxis and Denies nasal discharge Card Denies chest pain Resp Denies chest congestion, Denies cough and Denies hemoptysis GI Denies diarrhea and Denies nausea Skin/Breast Denies rash Neuro Reports no additional complaints Psych Reports no additional complaints Endo Reports no additional complaints Physical exam (Primary Care) Vital Signs: Last Vital Signs Pulse 103 H 12/09/23 13:51 BP 128/58 L 12/09/23 13:51 Pulse Ox 96 12/09/23 13:51 Oxygen Delivery Method Room Air 12/09/23 13:51 BMI result Body Mass Index 44.0 Tobacco/Smoking Status: Tobacco use Status Tobacco use date assessed 12/09/23 12/09/23 13:56 Patient Tobacco Use Status Never used Tobacco 12/09/23 13:56 e-Cigarette/Vaping Use Never Used 12/09/23 13:56 Thrive Assessment: Date of Thrive Assessment Date Thrive assessed 11/30/23 12/09/23 13:56 Const Other: Morbidly obese female with nasal no sitting in a wheelchair General: cooperative, comfortable and no acute distress Orientation/consciousness: patient oriented x3 HENMT Head: Yes normocephalic Eyes General: appearance normal, both eyes and all related structures Neck Neck: Yes supple Resp Effort & Inspection: normal respiratory effort, no cough and no stridor Cardio Rhythm: regular rhythm Heart sounds: S1 normal heart sound present and S2 normal heart sound present Skin General skin exam: turgor normal Neuro General: patient oriented x3, tone normal and moves all extremities Assessment and Plan Assessment & Plan (1) Right lumbar radiculitis: Code(s): M54.16 - Radiculopathy, lumbar region (2) Diabetic neuropathy, painful: Code(s): E11.40 - Type 2 diabetes mellitus with diabetic neuropathy, unspecified (3) Microalbuminuria: Code(s): R80.9 - Proteinuria, unspecified (4) Diabetic nephropathy: Code(s): E11.21 - Type 2 diabetes mellitus with diabetic nephropathy Qualifiers: Diabetes mellitus type: type 1 Qualified Code(s): E10.21 - Type 1 diabetes mellitus with diabetic nephropathy (5) CKD (chronic kidney disease): Code(s): N18.9 - Chronic kidney disease, unspecified Qualifiers: Chronic kidney disease stage: stage 3 (moderate) Chronic kidney disease stage 3 subtype: stage 3b (GFR 30-44) Qualified Code(s): N18.32 - Chronic kidney disease, stage 3b (6) Morbid obesity: Code(s): E66.01 - Morbid (severe) obesity due to excess calories (7) Risk for falls: Code(s): Z91.81 - History of falling (8) Walker as ambulation aid: Code(s): Z99.89 - Dependence on other enabling machines and devices (9) Type 1 diabetes mellitus with morbid obesity: Code(s): E10.69 - Type 1 diabetes mellitus with other specified complication; E66.01 - Morbid (severe) obesity due to excess calories (10) COPD (chronic obstructive pulmonary disease): Comment: DESMOND HAS LONGSTANDING HISTORY OF COPD, CURRENTLY STABLE WITH THE USE OF MEDS. Code(s): J44.9 - Chronic obstructive pulmonary disease, unspecified Qualifiers: COPD type: emphysema Emphysema type: panlobular Qualified Code(s): J43.1 - Panlobular emphysema (11) Lipid disorder: Code(s): E78.9 - Disorder of lipoprotein metabolism, unspecified Plan Patient is a 73-year-old female who was in emergency room [facility] of this month. Patient have a history of diabetes, COPD oxygen dependent, history of recurrent UTIs, obstructive sleep apnea. Has been going to emergency room recurrently for different reasons. She presented which chief complaint of flank pain bilateral and shortness a breath along with chest pain She was also in emergency room November 28 and of this month with negative workup. She pointed to worse right lower back the site of pain. Lumbar x-ray did not show anything acute, urine analysis was negative for infection After evaluation patient was discharged Her hemoglobin came back at 10.3 with hematocrit of 34.4 Creatinine 1.47 Electrolytes were within normal limit She continued to have pain lower lumbar radiating to right hip, I have placed a referral to pain management Due to her obesity patient is not very mobile, she need a dietary instructions and will be meeting with a dietitian, we will book appointment She is also due for diabetic foot exam, referral placed She has gotten script for Trulicity finally, But she has not started taking it. She will start and we will book 2 week follow-up appointment to see how her sugars are responding. Within 50 minute spent in care this patient including [id number] discussion about her medical problems Medications, coordination of care charting reviewing the chart. Orders: Referrals Pain Management Referral M54.16 - Radiculopathy, lumbar region Podiatry Referral E11.40 - Type 2 diabetes mellitus with diabetic neuropathy, unspecified Medications: Refilled dulaglutide (Trulicity) 1.5 mg (0.5 mL) subcut QWEEK 30 days 2.5 mL 6RF Discontinued ibuprofen Discontinued Reason: Change Referral Type 600 mg PO Q6H PRN 30 tabs 0RF fever or pain Coding Level of Care Code Est Pt Level 5 (27155) Diagnoses Right lumbar radiculitis M54.16 Diabetic neuropathy, painful E11.40 Microalbuminuria R80.9 Diabetic nephropathy associated with type 1 diabetes mellitus E10.21 Diabetes mellitus type: type 1 Stage 3b chronic kidney disease N18.32 Chronic kidney disease stage: stage 3 (moderate) Chronic kidney disease stage 3 subtype: stage 3b (GFR 30-44) Morbid obesity E66.01 Risk for falls Z91.81 Walker as ambulation aid Z99.89 Type 1 diabetes mellitus with morbid obesity E10.69; E66.01 Panlobular emphysema J43.1 COPD type: emphysema Emphysema type: panlobular Lipid disorder E78.9
== END 2023-12-09 14:26 | disposition home or self-care (01) ==
PROVIDERS: Visit Provider Internal Medicine
DX: E10.21 Type 1 diabetes mellitus with diabetic nephropathy (principal); N18.32 Chronic kidney disease, stage 3b; E66.01 Morbid (severe) obesity due to excess calories; Z68.41 Body mass index [BMI] 40.0-44.9, adult; J43.1 Panlobular emphysema; M54.16 Radiculopathy, lumbar region; R80.9 Proteinuria, unspecified; Z99.89 Dependence on other enabling machines and devices; E78.9 Disorder of lipoprotein metabolism, unspecified; Z91.81 History of falling
CPT/HCPCS: 99215

== ENCOUNTER 2023-12-23 10:44 | Outpatient (AMB) | payer OTHER, SELFPAY ==
--- NOTE | 2023-12-23 10:47 | A.OFFVIS_ITS ---
Vital Signs 12/23/23 10:48 Height 5 ft Weight 219 lb 5.759 oz BMI 42.8 BP 130/60 Blood Pressure Location Lt brachial Position Sitting Pulse 75 Pulse Source Pulse Oximeter Pulse Oximetry (%) 94 Oxygen Delivery Method Nasal Cannula Oxygen Flow Rate 2 Intake Visit Reasons: COPD Intake Note: pt is here for follow up and states she is having some issues when she had a UTI, slightly better. Suspect Artist Required: No Allergies adhesive tape [ADHESIVE TAPE] Allergy (Intermediate, Verified 12/23/23 11:08) RASH trimethobenzamide [From TIGAN] Allergy (Mild, Verified 12/23/23 11:08) NAUSEA NSAIDS (Non-Steroidal Anti-Inflamma Adverse Reaction (Mild, Verified 12/23/23 11:08) Nephropathy environmental Allergy (Intermediate, Uncoded 12/23/23 11:08) Nasal congestion Medication List - Last Reconciled 12/23/23 by Hong Frederick MD albuterol sulfate 90 mcg/actuation (ProAir HFA) 2 puffs inhalation Q4H PRN albuterol sulfate 2.5 mg (3 mL) inhalation Q4-6H PRN aspirin 81 mg PO DAILY atorvastatin 80 mg PO DAILY 90 days blood sugar diagnostic (OneTouch Ultra Test strips) Use to check blood sugar 3 times a day as needed blood sugar diagnostic (FreeStyle Lite Strips) Use to check blood sugar 3 times a day as needed blood-glucose meter (OneTouch Ultra2 Meter) Use to check blood sugar twice daily and when having symptoms of hypo/hyperglycemia bupropion HCl XL 150 mg PO DAILY cholecalciferol (vitamin D3) 25 mcg PO DAILY citalopram 10 mg PO DAILY diaper,brief,adult,disposable Size medium pull up briefs diaper,brief,adult,disposable Use for stress incontinence dulaglutide (Trulicity) 1.5 mg (0.5 mL) subcut QWEEK 30 days gabapentin 900 mg PO BEDTIME gabapentin 300 mg PO QAM hydroxyzine pamoate 25 mg PO DAILY insulin aspart U-100 (Novolog FlexPen U-100 Insulin aspart) See Protocol sliding scale doses subcut TID insulin detemir U-100 (Levemir FlexPen) 15 units (0.15 mL) subcut QAM insulin detemir U-100 (Levemir FlexPen) 30 units (0.3 mL) subcut BEDTIME lancets once a day lancets (OneTouch Delica Lancets) Use to check blood sugar twice daily and when having symptoms of hypo/hyperglycemia lisinopril 10 mg (2 x 5 mg) PO DAILY montelukast 10 mg PO DAILY nebulizers (AeroEclipse II Nebulizer) As directed oxygen-air delivery systems As directed pen needle, diabetic (BD Ultra-Fine Mini Pen Needle) Use to administer insulin twice daily pen needle, diabetic 4x a day ropinirole 2 mg PO BID Shower Chair Shower chair with back and arm rests trazodone 200 mg PO BEDTIME walker Wheeled walker with seat and brakes Do you need a note to return to daycare/school/sports/work: No HPI HPI COPD: Details: This 75 years old very pleasant but somewhat depressed female, is here for follow-up after 2 months. She has been relatively stable and slowly improving. Does not have any active symptoms of UTI. Breathing has been relatively stable and she uses albuterol ProAir or in the nebulizer as needed. She does use oxygen 2 L/minute at night and during the daytime except for short breaks. She has lost about 5 lb of weight and plans to keep. On losing For her nasal allergies she continues to use montelukast 10 mg daily and seems to be doing okay. She does use the walker. [facility] Medical History COPD (chronic obstructive pulmonary disease) Uncontrolled diabetes mellitus Depression, major, recurrent Dysuria Kidney stone on left side Diabetes 1.5, managed as type 1 Recurrent UTI COPD (chronic obstructive pulmonary disease) Respiratory failure with hypoxia Urinary tract infection Hypoxemia Morbid obesity CKD (chronic kidney disease) Anemia COPD exacerbation Allergic rhinitis ALDO (obstructive sleep apnea) Obesity (BMI 30-39.9) Constipation due to opioid therapy Osteoarthritis of left knee Hx SBO Hyperlipidemia CPAP (continuous positive airway pressure) dependence History of adrenal adenoma Osteochondroma of left femur Arthritis Diabetes Elevated cholesterol History of restless legs syndrome History of diverticulitis GERD (gastroesophageal reflux disease) Surgical History H/O excision of mass History of oophorectomy History of cholecystectomy History of appendectomy History of arthroscopy of left knee History of partial colectomy Hx of cataract extraction H/O exploratory laparotomy H/O colonoscopy History of surgery History of hysterectomy Family History Father HTN (hypertension) Diabetes mellitus Mother HTN (hypertension) Liver cancer Social History 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: Other 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 Other:: ex- has been staying over Housing: House Are you a primary interior plant caretaker to a significant other at home: No Do you presently have visiting nurse or other home services: Yes Unable to assess alcohol history related to: Unknown Alcohol intake: never Comment: PT SLEEPING Patient Tobacco Use Status: Never used Tobacco e-Cigarette/Vaping Use: Never Used Second Hand Smoke Exposure: No Advance Directives Date on File: 10/19/23 service: No Current occupational status: retired Cognitive needs: No Hearing needs: No Vision needs: No Female Reproductive History Menstrual Age of Menarche: 13 Review of Systems Const All systems reviewed & are unremarkable except as noted in HPI and below Eyes Reports no additional complaints ENT Reports nasal congestion (Intermittent) Card Denies chest pain, Denies irregular heart rhythm, Reports leg edema and Reports dyspnea Resp Reports as per HPI and Reports dyspnea GI Reports no additional complaints Reports no additional complaints Musc Reports abnormal gait (Impaired gait due to weakness of lower extremities, has to use a walker), Reports back pain and Reports limited range of motion Skin/Breast Reports system reviewed and no additional complaints, except as documented Neuro Reports abnormal gait (Impaired gait due to weakness of lower extremities, has to use a walker) Endo Reports other (Being treated for diabetes mellitus with diabetic neuropathy) Physical Exam Vital Signs: Last Vital Signs Pulse 75 12/23/23 10:48 BP 130/60 12/23/23 10:48 Pulse Ox 94 12/23/23 10:48 Oxygen Delivery Method Nasal Cannula 12/23/23 10:48 Oxygen Flow Rate 2 12/23/23 10:48 BMI result Body Mass Index 42.8 Const General: comfortable (But very weak), no acute distress, alert and awake Orientation/consciousness: patient oriented x3 HEENT Head: Yes normal to inspection General nose exam: No nasal polyps present, No nasal discharge present and Other nasal findings present (Mild nasal congestion) Face and sinus: Yes sinuses nontender Mouth: oropharynx normal Throat: Yes posterior oropharynx normal Eyes General: appearance normal, both eyes and all related structures Neck Neck: Yes normal visual inspection, Yes no lymphadenopathy, Yes trachea midline and Yes no JVD Thyroid: Thyroid normal Chest Chest palpation & inspection: normal inspection of the chest, normal palpation of entire chest wall and no tenderness Resp Other: Percussion note is resonant, breath sounds are very decreased over the basilar areas. No audible wheezes rhonchi or creps. Cardio Palpation: normal PMI Rate: regular rate Rhythm: regular rhythm Heart sounds: no gallops and no murmurs GI Palpation (GI): Soft to palpation, nontender, No hepatosplenomegaly present, no masses and Other GI palpation findings present (Abdomen is obese and protuberant) Auscultation: normal bowel sounds Back/Spine/Pelvis Thoracic/Lumbar Spine: thoracic and lumbar spine normal to inspection and thoraco-lumbar ROM limited Skin General skin exam: no rashes or lesions noted Neuro General: patient oriented x3 and no focal motor deficits Cranial nerves: Yes CN's II-XII intact bilaterally Extrem General: Yes normal to inspection, Yes no calf tenderness, Yes edema (ONLY MINIMAL AT THIS TIME.), Yes venous stasis dermatitis and Yes other (HAS THE A SMALL CONTUSION OF THE RIGHT FOREFOOT, WITH BLUISH DISCOLORATION ) Psych Appearance: grossly normal Speech and movement: Normal speech and movement present Assessment & Plan Assessment & Plan (1) Obesity (BMI 30-39.9): Comment: She is morbidly obese, current BMI 42.8, has lost 5 lb of weight recently and is happy about that. Code(s): E66.9 - Obesity, unspecified Category: Medical Plan: Again had a good discussion about the weight and she will continue to watch her diet . She can not. Do much exercise (2) ALDO (obstructive sleep apnea): Comment: Patient does have obstructive sleep apnea as expected, But not able to use the CPAP She also has associated nocturnal hypoxemia. Code(s): G47.33 - Obstructive sleep apnea (adult) (pediatric) Category: Medical Plan: Continue to lose weight even if it is slow. Continue to use O2 2 L/minute at night (3) Restrictive airway disease: Comment: Patient has restrictive lung disorder related to obesity. Code(s): J98.4 - Other disorders of lung Category: Medical Plan: Advised to do deep Breathing exercises TID Continue to lose weight even though it is slow. (4) Respiratory failure with hypoxia: Comment: This patient definitely has nocturnal hypoxemia as well as Exercise induced Hypoxemia . Use of POC . not effective as she is mouth breather Code(s): J96.91 - Respiratory failure, unspecified with hypoxia Category: Medical Plan: O2 2 L/minute during the night, and continuously during the day except for short breaks, (5) COPD (chronic obstructive pulmonary disease): Comment: DESMOND HAS LONGSTANDING HISTORY OF COPD, CURRENTLY STABLE WITH THE USE OF MEDS. Code(s): J44.9 - Chronic obstructive pulmonary disease, unspecified Category: Medical Qualifiers: COPD type: emphysema Emphysema type: panlobular Qualified Code(s): J43.1 - Panlobular emphysema Plan: Ipratropium-albuterol, solution by nebulizer Q 6 hours while awake and p.r.n. ProAir 2 puffs Q 4-6 hours p.r.n. when outdoors. Montelukast 10 mg daily Coding Level of Care Code Est Pt Level 4 (50220) Diagnoses Obesity (BMI 30-39.9) E66.9 ALDO (obstructive sleep apnea) G47.33 Restrictive airway disease J98.4 Respiratory failure with hypoxia J96.91 Panlobular emphysema J43.1 COPD type: emphysema Emphysema type: panlobular
[2023-12-23 10:48] VITALS: BP 130/60; PULSE 75; O2SAT 94; BMI 42.8
== END 2023-12-23 11:08 | disposition home or self-care (01) ==
PROVIDERS: PCP Internal Medicine; Visit Provider Internal Medicine
DX: E66.9 Obesity, unspecified (principal); G47.33 Obstructive sleep apnea (adult) (pediatric); J98.4 Other disorders of lung; J96.91 Respiratory failure, unspecified with hypoxia; J43.1 Panlobular emphysema
CPT/HCPCS: 99214

== ENCOUNTER → 2023-12-23 10:44 | Outpatient (BNVA) | payer OTHER, SELFPAY | PROVIDERS: PCP Internal Medicine; Visit Provider Internal Medicine | DX: J43.1 Panlobular emphysema (principal); J98.4 Other disorders of lung; J96.91 Respiratory failure, unspecified with hypoxia; G47.33 Obstructive sleep apnea (adult) (pediatric); E66.01 Morbid (severe) obesity due to excess calories; Z68.41 Body mass index [BMI] 40.0-44.9, adult; Z99.81 Dependence on supplemental oxygen; Z99.89 Dependence on other enabling machines and devices | CPT/HCPCS: 99212 ==

== ENCOUNTER 2023-12-24 08:30 | Outpatient (AMB) | payer OTHER, SELFPAY ==
--- NOTE | 2023-12-24 08:40 | A.OFFPC_ITS ---
Intake Visit Reasons: 2 Wk F/u~ [phone] Allergies adhesive tape [ADHESIVE TAPE] Allergy (Intermediate, Verified 12/24/23 08:41) RASH trimethobenzamide [From TIGAN] Allergy (Mild, Verified 12/24/23 08:41) NAUSEA NSAIDS (Non-Steroidal Anti-Inflamma Adverse Reaction (Mild, Verified 12/24/23 08:41) Nephropathy environmental Allergy (Intermediate, Uncoded 12/23/23 11:08) Nasal congestion Tobacco use date assessed: 12/24/23 Fall risk assessment: No Falls in past year Last assessed Fall Risk: 12/24/23 Dental Screening Dental Screen Date: 12/24/23 Did you have a dental visit in the last 12 months?: Yes Did you have a dental problem in the last 6 months where you did not have access to dental care?: No Was dental information given to patient?: Patient has dentist HPI 2 Wk F/u~ [phone] HPI Details This is a telemedicine visit Patient has started taking Trulicity, her sugars are much better now She is checking it 2 times a day, she gave me couple of fasting sugar readings from yesterday and today It is 144 and 150 fasting She also went to business account specialist yesterday Dr. Frederick for her visit And was told that she is doing very well, her lungs were clear and her sugar was 141 during her visit. She is taking Trulicity once a week And Levemir 15 units in the morning and 30 units at night. [facility] Medical History COPD (chronic obstructive pulmonary disease) Uncontrolled diabetes mellitus Depression, major, recurrent Dysuria Kidney stone on left side Diabetes 1.5, managed as type 1 Recurrent UTI COPD (chronic obstructive pulmonary disease) Respiratory failure with hypoxia Urinary tract infection Hypoxemia Morbid obesity CKD (chronic kidney disease) Anemia COPD exacerbation Allergic rhinitis ALDO (obstructive sleep apnea) Obesity (BMI 30-39.9) Constipation due to opioid therapy Osteoarthritis of left knee Hx SBO Hyperlipidemia CPAP (continuous positive airway pressure) dependence History of adrenal adenoma Osteochondroma of left femur Arthritis Diabetes Elevated cholesterol History of restless legs syndrome History of diverticulitis GERD (gastroesophageal reflux disease) Surgical History H/O excision of mass History of oophorectomy History of cholecystectomy History of appendectomy History of arthroscopy of left knee History of partial colectomy Hx of cataract extraction H/O exploratory laparotomy H/O colonoscopy History of surgery History of hysterectomy Family History Father HTN (hypertension) Diabetes mellitus Mother HTN (hypertension) Liver cancer Social History 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: Other 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 Other:: ex- has been staying over Housing: House Are you a primary weekend caregiver to a significant other at home: No Do you presently have visiting nurse or other home services: Yes Unable to assess alcohol history related to: Unknown Alcohol intake: never Comment: PT SLEEPING Patient Tobacco Use Status: Never used Tobacco e-Cigarette/Vaping Use: Never Used Second Hand Smoke Exposure: No Advance Directives Date on File: 10/19/23 service: No Current occupational status: retired Cognitive needs: No Hearing needs: No Vision needs: No Female Reproductive History Menstrual Age of Menarche: 13 Questionnaire Thrive Questionnaire Date Thrive assessed: 11/30/23 AUDIT C Alcohol Use Questionnaire (AUDIT-C) 1. How often do you have a drink containing alcohol?: Never 3. How often do you have six or more drinks on one occasion?: Never Total Score: 0 Score Reviewed/Action Taken: Yes RACHNA-7 AMB Questionnaire RACHNA-7 Date RACHNA - 7 assessed: 10/15/23 Source: Developed by Drs. Ellis Child, Nimo Castillo, Miguel East and colleagues, with an educational imki from [employer]. Review of Systems Const Denies chills and Denies fever(s) ENT Denies epistaxis and Denies nasal discharge Card Denies chest pain Resp Denies chest congestion, Denies cough and Denies hemoptysis GI Denies diarrhea and Denies nausea Skin/Breast Denies rash Neuro Reports no additional complaints Psych Reports no additional complaints Endo Reports no additional complaints Physical exam (Primary Care) Tobacco/Smoking Status: Tobacco use Status Tobacco use date assessed 12/24/23 12/24/23 08:43 Patient Tobacco Use Status Never used Tobacco 12/24/23 08:43 e-Cigarette/Vaping Use Never Used 12/24/23 08:43 Thrive Assessment: Date of Thrive Assessment Date Thrive assessed 11/30/23 12/24/23 08:43 Telehealth Telehealth Telehealth Platform: [employer] Location of provider rendering services: practice address Location of patient: address on file Patient Identification confirmed using: Name, : Yes Telehealth method: voice only Patient verbally consented to treatment: Yes Patient verbally consented to billing insurance company: Yes Patient informed of any privacy concerns related to visit: Yes Minutes spent on Phone/Video with Pt.: 12 Assessment and Plan Assessment & Plan (1) Type 1 diabetes mellitus with morbid obesity: Code(s): E10.69 - Type 1 diabetes mellitus with other specified complication; E66.01 - Morbid (severe) obesity due to excess calories Plan This is a telemedicine visit Patient has started taking Trulicity, her sugars are much better now She is checking it 2 times a day, she gave me couple of fasting sugar readings from yesterday and today It is 144 and 150 fasting She also went to business account specialist yesterday Dr. Frederick for her visit And was told that she is doing very well, her lungs were clear and her sugar was 141 during her visit. She is taking Trulicity once a week And Levemir 15 units in the morning and 30 units at night. Medications: Changed From insulin detemir U-100 (Levemir FlexPen) 30 units (0.3 mL) subcut BEDTIME 15 mL 3RF To insulin detemir U-100 (Levemir FlexPen) 15 u in am, and 30 u at bed time 40.5 mL 3RF 90 days Discontinued insulin detemir U-100 (Levemir FlexPen) Discontinued Reason: Doctor's Order 15 units (0.15 mL) subcut QAM 15 mL 3RF Coding Level of Care Code Tele Est Pt Level 3 (89371) Diagnoses Type 1 diabetes mellitus with morbid obesity E10.69; E66.01
== END 2023-12-24 09:31 | disposition home or self-care (01) ==
LOC: HO.HMGC 08:30
PROVIDERS: PCP Internal Medicine; Visit Provider Internal Medicine
DX: E10.69 Type 1 diabetes mellitus with other specified complication (principal); E66.01 Morbid (severe) obesity due to excess calories
CPT/HCPCS: 99442

== ENCOUNTER 2024-01-27 15:26 | Outpatient (AMB) | payer OTHER, SELFPAY ==
--- NOTE | 2024-01-27 15:35 | AM.OFFWIN_ITS ---
Intake Vital Signs 01/27/24 15:36 Height 5 ft Weight 221 lb BMI 43.2 BP 128/62 Blood Pressure Location Lt brachial Position Sitting Pulse 127 H Pulse Source Pulse Oximeter Temp 98.4 F Temp Source Oral Pulse Oximetry (%) 96 Oxygen Delivery Method Nasal Cannula Intake Visit Reasons: EP ?UTI Intake Note: pt here c/o urinary urgency and back pain. Started 2 days ago Patient Tobacco Use Status: Never used Tobacco Allergies adhesive tape [ADHESIVE TAPE] Allergy (Intermediate, Verified 01/27/24 15:35) RASH trimethobenzamide [From TIGAN] Allergy (Mild, Verified 01/27/24 15:35) NAUSEA NSAIDS (Non-Steroidal Anti-Inflamma Adverse Reaction (Mild, Verified 01/27/24 15:35) Nephropathy environmental Allergy (Intermediate, Uncoded 01/27/24 15:35) Nasal congestion Do you need a note to return to daycare/school/sports/work: No HPI HPI Comments History of Present Illness Details Patient is a 74yo F who presents for UTI hx of UTIs in past and feels similar She gets urinary frequency/urgency with associated back pain Pain is intermittent and worse with palpation; located bilateral flank Denies dysuria, inability to urinate or hematuria She states no fever, chills abdominal pain Pt last urinated prior to leaving and states she knows she will be unable to urinate in office for us She denies CP, SOB, loose stool/melena Denies lower extremity parathesias, weakness or pain radiation [facility] Medical History COPD (chronic obstructive pulmonary disease) Uncontrolled diabetes mellitus Depression, major, recurrent Dysuria Kidney stone on left side Diabetes 1.5, managed as type 1 Recurrent UTI COPD (chronic obstructive pulmonary disease) Respiratory failure with hypoxia Urinary tract infection Hypoxemia Morbid obesity CKD (chronic kidney disease) Anemia COPD exacerbation Allergic rhinitis ALDO (obstructive sleep apnea) Obesity (BMI 30-39.9) Constipation due to opioid therapy Osteoarthritis of left knee Hx SBO Hyperlipidemia CPAP (continuous positive airway pressure) dependence History of adrenal adenoma Osteochondroma of left femur Arthritis Diabetes Elevated cholesterol History of restless legs syndrome History of diverticulitis GERD (gastroesophageal reflux disease) Surgical History H/O excision of mass History of oophorectomy History of cholecystectomy History of appendectomy History of arthroscopy of left knee History of partial colectomy Hx of cataract extraction H/O exploratory laparotomy H/O colonoscopy History of surgery History of hysterectomy Family History Father HTN (hypertension) Diabetes mellitus Mother HTN (hypertension) Liver cancer Social History 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: Other 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 Other:: ex- has been staying over Housing: House Are you a primary transitional care nurse to a significant other at home: No Do you presently have visiting nurse or other home services: Yes Unable to assess alcohol history related to: Unknown Alcohol intake: never Comment: PT SLEEPING Patient Tobacco Use Status: Never used Tobacco e-Cigarette/Vaping Use: Never Used Second Hand Smoke Exposure: No Advance Directives Date on File: 10/19/23 service: No Current occupational status: retired Cognitive needs: No Hearing needs: No Vision needs: No Female Reproductive History Menstrual Age of Menarche: 13 Review of Systems Const Denies chills and Denies fever(s) Denies hematuria, Reports difficulty voiding, Denies pelvic pain, Reports urinary incontinence (wears diaper at baseline), Denies urinary hesitancy and Reports urinary urgency Musc Reports back pain Physical Exam Vital Signs: Last Vital Signs Temp 98.4 F 01/27/24 15:36 Pulse 127 H 01/27/24 15:36 BP 128/62 01/27/24 15:36 Pulse Ox 96 01/27/24 15:36 Oxygen Delivery Method Nasal Cannula 01/27/24 15:36 BMI result Body Mass Index 43.2 General: Non-toxic, NAD. Speaking full sentences. Skin: Warm dry throughout Eye: EOMI Respiratory: CTA bilaterally. No wheezes, rales or rhonchi Cardiac: RRR. No murmur Abdominal: BS present. No tenderness to palpation lower quadrants of suprapubic region. Tenderness to palpation bilateral CVA. MSK: No midline tenderness. Full ROM extremities. Neurology: A/O. No aphasia or facial droop. Psych: Good mood and affect Assessment & Plan Assessment & Plan (1) Urinary urgency: Code(s): R39.15 - Urgency of urination Plan: Patient seen and evaluated. HR improved to 91bpm. Pt non-toxic appearing She was given a urinary hat and clean specimen sample per her request. Order placed at the lab and she will bring back tomorrow (as lab is closed currently) Antibiotics will be ordered with + urine sample if warranted Patient gave verbal understanding and had no additional questions or concerns at time of discharge All questions answered Orders: Orders UA and rflx microscopic Today R39.15 - Urgency of urination Coding Level of Care Code Est Pt Level 3 (86641) Diagnoses Urinary urgency R39.15
[2024-01-27 15:36] VITALS: BP 128/62; PULSE 127; TEMP 36.9; O2SAT 96; BMI 43.2
== END 2024-01-27 16:53 | disposition home or self-care (01) ==
PROVIDERS: PCP Internal Medicine; Visit Provider Physician Assistant
DX: R39.15 Urgency of urination (principal)
CPT/HCPCS: 99213

== ENCOUNTER 2024-01-28 10:00 | Outpatient (REF) | payer OTHER, SELFPAY ==
[2024-01-28 16:02] LABS: Appearance Urine Cloudy; Color Urine Yellow; Glucose Urine UA Negative (Negative); Leukocyte Esterase Urine Large (3+) (Negative); Nitrite Urine Positive (Negative); Specific Gravity - Urine 1.015 (1.005-1.025); UMIC TRIGGER UA YES; Urine Blood Trace (Negative); Urine Ketones Negative (Negative); Urine Protein Negative (Neg-Trace)
[2024-01-28 16:04] LABS: Bacteria Urine 4+ (None Seen); Hyaline Casts Urine 0-2 /LPF (0-2); WBC Urine >50 /HPF (0-5)
== END 2024-01-28 10:01 | disposition home or self-care (01) ==
LOC: HO.HMGCLNP 10:00
PROVIDERS: PCP Internal Medicine; Visit Provider Physician Assistant
DX: R39.15 Urgency of urination (principal)
CPT/HCPCS: 81001; 81003

== ENCOUNTER 2024-02-10 12:25 | Outpatient (AMB) | payer OTHER, SELFPAY ==
--- NOTE | 2024-02-10 12:30 | AM.OFFWIN_ITS ---
Intake Vital Signs 02/10/24 12:41 Height 5 ft Weight 221 lb BMI 43.2 BP 122/80 Blood Pressure Location Lt brachial Position Sitting Pulse 90 Pulse Source Pulse Oximeter Pulse Oximetry (%) 93 Oxygen Delivery Method Room Air Intake Visit Reasons: burning while urinating Intake Note: pt is here for uti Patient Tobacco Use Status: Never used Tobacco Allergies adhesive tape [ADHESIVE TAPE] Allergy (Intermediate, Verified 02/10/24 12:42) RASH trimethobenzamide [From TIGAN] Allergy (Mild, Verified 02/10/24 12:42) NAUSEA NSAIDS (Non-Steroidal Anti-Inflamma Adverse Reaction (Mild, Verified 02/10/24 12:42) Nephropathy environmental Allergy (Intermediate, Uncoded 01/27/24 15:35) Nasal congestion Do you need a note to return to daycare/school/sports/work: No HPI HPI Comments History of Present Illness Details Pt presents back to the office for UTI She was seen 01/26 for UTi symptoms At that time she could not produce urine sample but had UTI symptoms She brought back sample the following day which was + leks, nitrates and blood Tx with 7 days of ceohalexin States felt completely better but 2 days ago onset again of dysuria, frequency, urgency Slight lower back ache bilaterally No hematuria + baseline incontinence which she wears a pad for States no fever or chills Has not tried any medicine for it Has not seen urology in a while [facility] Medical History COPD (chronic obstructive pulmonary disease) Uncontrolled diabetes mellitus Depression, major, recurrent Dysuria Kidney stone on left side Diabetes 1.5, managed as type 1 Recurrent UTI COPD (chronic obstructive pulmonary disease) Respiratory failure with hypoxia Urinary tract infection Hypoxemia Morbid obesity CKD (chronic kidney disease) Anemia COPD exacerbation Allergic rhinitis ALDO (obstructive sleep apnea) Obesity (BMI 30-39.9) Constipation due to opioid therapy Osteoarthritis of left knee Hx SBO Hyperlipidemia CPAP (continuous positive airway pressure) dependence History of adrenal adenoma Osteochondroma of left femur Arthritis Diabetes Elevated cholesterol History of restless legs syndrome History of diverticulitis GERD (gastroesophageal reflux disease) Surgical History H/O excision of mass History of oophorectomy History of cholecystectomy History of appendectomy History of arthroscopy of left knee History of partial colectomy Hx of cataract extraction H/O exploratory laparotomy H/O colonoscopy History of surgery History of hysterectomy Family History Father HTN (hypertension) Diabetes mellitus Mother HTN (hypertension) Liver cancer Social History 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: Other 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 Other:: ex- has been staying over Housing: House Are you a primary mall plant caretaker to a significant other at home: No Do you presently have visiting nurse or other home services: Yes Unable to assess alcohol history related to: Unknown Alcohol intake: never Comment: PT SLEEPING Patient Tobacco Use Status: Never used Tobacco e-Cigarette/Vaping Use: Never Used Second Hand Smoke Exposure: No Advance Directives Date on File: 10/19/23 service: No Current occupational status: retired Cognitive needs: No Hearing needs: No Vision needs: No Female Reproductive History Menstrual Age of Menarche: 13 Review of Systems Const Denies chills, Denies fever(s) and Denies night sweats Card Denies chest pain and Denies dyspnea Resp Denies dyspnea GI Reports abdominal pain Denies hematuria, Reports dysuria, Reports urinary incontinence and Reports urinary urgency Musc Reports back pain Skin/Breast Denies rash (denies genital lesions/redness) Physical Exam Vital Signs: Last Vital Signs Pulse 90 02/10/24 12:41 BP 122/80 02/10/24 12:41 Pulse Ox 93 02/10/24 12:41 Oxygen Delivery Method Room Air 02/10/24 12:41 BMI result Body Mass Index 43.2 General: Non-toxic, NAD. Speaking full sentences. Skin: Warm dry throughout Eye: EOMI Respiratory: CTA bilaterally. No wheezes, rales or rhonchi Cardiac: RRR. No murmur Abdominal: BS present. Non-tender x 4 quadrants but +tenderness to palpation suprapubic region No CVAT MSK: Full ROM extremities. Neurology: A/O. No aphasia or facial droop. Gait without abnormality Psych: Good mood and affect Results AMB Urinalysis, Automated UA Leukoctes 500 Peng/uL Last Edit by Jacob Valdez CMA on 02/10/24 12:4 4 UA Nitrite Negative Last Edit by Jacob Valdez CMA on 02/10/24 12:44 UA Urobilinogen 0.2 mg/dL Last Edit by Jacob Valdez CMA on 02/10/24 12 :44 UA Protein 0 mg/dL Last Edit by Jacob Valdez CMA on 02/10/24 12:44 UA pH 6.0 Last Edit by Jacob Valdez CMA on 02/10/24 12:44 UA Blood 10 Tim/uL Last Edit by Jacob Valdez CMA on 02/10/24 12:44 UA Specific [place] 1.015 Last Edit by Jacob Valdez CMA on 02/10/24 12:44 UA Ketone Negative Last Edit by Jacob Valdez CMA on 02/10/24 12:44 UA Bilirubin 0 mg/dL Last Edit by Jacob Valdez CMA on 02/10/24 12:44 UA Glucose 0 mg/dL Last Edit by Jacob Valdez CMA on 02/10/24 12:44 Assessment & Plan Assessment & Plan (1) Urinary tract infection: Code(s): N39.0 - Urinary tract infection, site not specified Qualifiers: Urinary tract infection type: acute cystitis Hematuria presence: without hematuria Qualified Code(s): N30.00 - Acute cystitis without hematuria Plan: Patient seen and evaluated. Reviewed last labs/notes Culture sent U/a today + leuks and trace blood Keflex to pharmacy Told to follow up with urology Any worse go to ED; discussed retention/fevers etc Patient gave verbal understanding and had no additional questions or concerns at time of discharge All questions answered Orders: Orders Urine Culture Today N39.0 - Urinary tract infection, site not specified AMB Urinalysis Automated Today Z13.9 - Encounter for screening, unspecified Medications: New cephalexin 500 mg PO BID 10 caps 0RF Coding Level of Care Code Est Pt Level 3 (20899) Diagnoses Acute cystitis without hematuria N30.00 Urinary tract infection type: acute cystitis Hematuria presence: without hematuria
[2024-02-10 12:41] VITALS: BP 122/80; PULSE 90; O2SAT 93; BMI 43.2
== END 2024-02-10 12:57 | disposition home or self-care (01) ==
PROVIDERS: PCP Internal Medicine; Visit Provider Physician Assistant
DX: N30.00 Acute cystitis without hematuria (principal)
CPT/HCPCS: 81003; 99213

== ENCOUNTER 2024-02-10 16:40 | Outpatient (REF) | payer OTHER, SELFPAY | END 2024-02-10 16:41 | disposition home or self-care (01) | LOC: HO.LNP 16:40 | PROVIDERS: Visit Provider Physician Assistant | DX: N39.0 Urinary tract infection, site not specified (principal) | CPT/HCPCS: 87086; 87088; 87186 ==

== ENCOUNTER 2024-02-13 00:34 | Emergency (ER) | payer OTHER, SELFPAY ==
[2024-02-13] VITALS (7 sets, daily range): BP systolic 105–121; BP diastolic 38–77; PULSE 70–91; RESP 16–20; TEMP 36.7–36.9; O2SAT 96–100; BMI 43.9
--- NOTE | ~2024-02-13 | XR_ITS ---
EXAMINATION: XR CHEST CLINICAL INFORMATION: Shortness of breath COMPARISON: 11/29/2023 TECHNIQUE: Frontal view of the chest was obtained. FINDINGS: Lung volumes are symmetric. There is suggestion of mild left basilar atelectasis. No additional consolidation is seen. No evidence of pneumothorax, significant pleural effusion, or overt pulmonary edema. Cardiac silhouette remains prominent. Degenerative changes are noted in the spine and shoulders. XR/XR chest 1V IMPRESSION: Suggestion of mild left basilar atelectasis without additional acute findings.
--- NOTE | ~2024-02-13 | US_ITS ---
EXAMINATION: US VENOUS ULTRASOUND WITH DOPPLER LOWER EXTREMITY, LEFT CLINICAL INFORMATION: Left leg pain COMPARISON: 12/20/2022 TECHNIQUE: Ultrasound of the deep veins is performed from the hip to the calf with compression sonography and color and pulse Doppler assessment. Spectral analysis with color-flow imaging is performed. FINDINGS: There is normal venous compression and respiratory variation and augmented flow. The visualized common femoral vein, superficial femoral vein, profunda femoral vein, popliteal vein, and the trifurcation region shows no evidence of deep venous thrombosis. There is no significant popliteal fossa cyst. If the patient's symptoms persist, followup ultrasound in 5 days 7 days might be of value to exclude proximal propagation from a non-visualized calf vein. US/US venous duplex LE IMPRESSION: No DVT demonstrated in the left lower extremity.
--- NOTE | ~2024-02-13 | XR_ITS ---
EXAMINATION: XR THORACIC SPINE CLINICAL INFORMATION: Midline upper back pain and tenderness COMPARISON: 11/29/2023 TECHNIQUE: 3 views of the thoracic spine were obtained. FINDINGS: Thoracic spine alignment appears anatomic. Vertebral body heights are maintained. No acute fracture is seen. Multilevel endplate osteophytes are noted. XR/XR thoracic spine 3V IMPRESSION: No acute findings identified. Degenerative changes.
--- NOTE | ~2024-02-13 | XR_ITS ---
EXAMINATION: XR LUMBOSACRAL SPINE CLINICAL INFORMATION: Reason for Exam lower back midline pain and tenderness COMPARISON: 12/04/2023 TECHNIQUE: Three views of the lumbosacral spine. FINDINGS: There is anatomic alignment of the lumbar vertebral bodies and posterior elements. Vertebral body heights are maintained. No acute fracture is seen. There is disc space narrowing at L5-S1. Multilevel endplate osteophytes are present. There is facet arthropathy of the lower lumbar spine. Sacroiliac joints appear intact with degenerative change. XR/XR lumbar spine 2-3V IMPRESSION: No acute findings identified. Degenerative changes as noted above.
--- NOTE | 2024-02-13 01:24 | ECG_ITS ---
Test Reason : SOB Blood Pressure : / mmHG Vent. Rate : 078 BPM Atrial Rate : 078 BPM P-R Int : 166 ms QRS Dur : 088 ms QT Int : 388 ms P-R-T Axes : 000 033 016 degrees QTc Int : 442 ms Normal sinus rhythm Normal ECG When compared with ECG of 02-DEC-2023 04:06, No significant change was found Referred By: Lorraine Peacock Electronically Signed By:Isaías Denise
[2024-02-13 02:12] LABS: MANUAL DIFF FLAG NO
[2024-02-13 02:13] LABS: Basophils Percent Auto 0.4 % (0-2); Eosinophils Absolute Auto 0.3 X10*3/uL (0.0-0.4); Hematocrit 33.3 % (37.0-47.0); Hemoglobin 10.6 g/dl (12.0-16.0); Imm Gran Abs Auto 0.03 X10*3/uL (0.00-0.03); Imm Gran Pct Auto 0.3 % (0.0-0.4); Lymphocytes Percent Auto 26.1 % (20-40); Mean Corpuscular HGB Conc 31.8 g/dl (31.0-35.0); Mean Corpuscular Volume 91.2 fL (80.0-98.0); Mean Platelet Volume 11.8 fL (9.4-12.3); Monocytes Absolute Auto 0.7 X10*3/uL (0.1-1.2); Monocytes Percent Auto 5.9 % (2-11); Neutrophils Absolute Auto 7.3 x10*3/uL (2.0-8.3); Neutrophils Percent Auto 64.3 % (45-73); Platelet Count 206 X10*3/uL (160-400); Red Blood Count 3.65 X10*6/uL (4.20-5.50); Red Cell Distribution Width 13.2 % (11.0-16.0); White Blood Count 11.3 X10*3/uL (4.8-10.8)
[2024-02-13 02:27] LABS: Alanine Aminotransferase 12 U/L (0-31); Albumin Level 3.5 g/dL (3.5-5.0); Alkaline Phosphatase 37 U/L (39-117); Anion Gap 14 (12-20); Aspartate Amino Transferase 12 U/L (5-31); Bilirubin Direct < 0.2 mg/dL (0.0-0.5); Bilirubin Total 0.2 mg/dL (0.0-1.0); Blood Urea Nitrogen 21 mg/dL (9-16); Calcium 9.2 mg/dL (8.4-10.2); Carbon Dioxide 30 mmol/L (22-29); Chloride 102 mmol/L (96-108); Creatinine Clr Calc Pharmacy 30.1; Estimated Glomerular Filt Rate 28; Glucose Random 196 mg/dL (60-115); Lipase 19 U/L (8-78); Magnesium 1.8 mg/dL (1.6-2.6); Potassium 4.6 mmol/L (3.3-5.1); Sodium 141 mmol/L (135-145); Total Protein 6.1 g/dL (6.5-8.0)
[2024-02-13 02:34] LABS: Troponin-I High Sensitivity < 2.7 ng/L (<3.5-17.0)
[2024-02-13 02:49] LABS: Influenza A PCR NEGATIVE (Negative); Influenza B PCR NEGATIVE (Negative); Resp Syncy Virus RNA Qual PCR NEGATIVE (Negative); SARS COV2 PCR INHOUSE NEGATIVE (Negative)
--- NOTE | 2024-02-13 04:29 | ED_ITS ---
HPI - General Adult General Chief complaint: Back Pain/Injury Stated complaint: SOB/BACK PAIN Time Seen by Provider: 02/13/24 04:29 History of Present Illness ED Provider: Magda URIBE narrative: The patient is a 74-year-old woman who lives alone in her own apartment in [place]. She gets around with a walker. Last week or so she has had pain in her left arm. She says that yesterday she also had urinary symptoms and went to an urgent care center and was prescribed cephalexin for a UTI. Developed a cough with sputum production and felt short of breath. This evening she developed pain that she says is mostly in her upper back in the midline. There was no trauma. She called an ambulance and was brought to the hospital. She does not know if she has definitely had a fever but she says that she has felt a alternately hot and cold. She says she has had pain in the left arm that is not related to coughing for over a week. She has also had pain in her left leg she feels as if her left leg may be swollen. No abdominal pain. No vomiting. The patient is on home oxygen. Related Data Home Medications ?Medication ?Instructions ?Recorded ?Confirmed bupropion HCl 150 mg 24 hr tablet, 150 mg PO DAILY 04/25/20 12/23/23 extended release oxygen-air delivery systems ##1 04/25/20 12/23/23 aspirin 81 mg chewable tablet 81 mg PO DAILY 10/01/21 12/23/23 trazodone 100 mg tablet 200 mg PO BEDTIME 10/01/21 12/23/23 cholecalciferol (vitamin D3) 25 25 mcg PO DAILY 01/04/22 12/23/23 mcg (1,000 unit) capsule hydroxyzine pamoate 25 mg capsule 25 mg PO DAILY 08/13/22 12/23/23 citalopram 10 mg tablet 10 mg PO DAILY 06/06/23 12/23/23 albuterol sulfate 90 mcg/actuation 2 puff inhalation Q4H PRN 09/02/23 12/23/23 aerosol inhaler (ProAir HFA) shortness of breath or wheezing ropinirole 2 mg tablet 2 mg PO BID 09/02/23 12/23/23 gabapentin 300 mg capsule 900 mg PO BEDTIME 04/16/24 06/12/24 Previous Rx's ?Medication ?Instructions ?Recorded nebulizers (AeroEclipse II #1 ea 02/05/21 Nebulizer) lancets 28 gauge #100 ea 06/24/21 diaper,brief,adult,disposable #64 ea 05/06/22 lancets 30 gauge (OneTouch Delica #100 ea 09/16/22 Lancets) blood-glucose meter (OneTouch #1 ea 09/19/22 Ultra2 Meter) pen needle, diabetic 31 gauge x #100 ea 10/14/2209/25 (BD Ultra-Fine Mini Pen Needle) pen needle, diabetic 31 gauge x #1,200 ea 02/18/2309/25 walker #1 ea 05/20/23 Shower Chair #1 ea 05/27/23 diaper,brief,adult,disposable #200 ea 09/07/23 atorvastatin 80 mg tablet 80 mg PO DAILY 90 days #90 tabs 10/09/23 blood sugar diagnostic (FreeStyle #100 ea 11/13/23 Lite Strips) insulin detemir U-100 100 unit/mL See Rx Instructions subcut BID 90 12/24/23 (3 mL) subcutaneous pen (Levemir days #40.5 mL FlexPen) dulaglutide 1.5 mg/0.5 mL 1.5 mg (0.5 mL) subcut QWEEK 30 12/25/23 subcutaneous pen injector days #2.5 mL (Trulicity) insulin aspart U-100 100 unit/mL See Protocol subcut TID #30 mL 12/25/23 (3 mL) subcutaneous pen (Novolog FlexPen U-100 Insulin aspart) lisinopril 5 mg tablet 10 mg (2 x 5 mg) PO DAILY #90 tabs 12/25/23 montelukast 10 mg tablet 10 mg PO DAILY #90 tabs 12/25/23 albuterol sulfate 2.5 mg/3 mL 2.5 mg (3 mL) inhalation Q4-6H PRN 01/25/24 (0.083 %) solution for nebulization shortness of breath or wheezing #75 mL gabapentin 300 mg capsule 300 mg PO ONCE #90 caps 01/25/24 blood sugar diagnostic (OneTouch #100 ea 02/10/24 Ultra Test strips) cephalexin 500 mg capsule 500 mg PO BID #10 caps 02/10/24 azithromycin 250 mg tablet 250 mg PO DAILY 4 days #4 tabs 02/13/24 Allergies Allergy/AdvReac Type Severity Reaction Status Date / Time adhesive tape [ADHESIVE TAPE] Allergy Intermediate RASH Verified 02/13/24 00:49 trimethobenzamide Allergy Mild NAUSEA Verified 02/13/24 00:49 [From TIGAN] NSAIDS (Non-Steroidal AdvReac Mild Nephropathy Verified 02/13/24 00:49 Anti-Inflamma environmental Allergy Intermediate Nasal Uncoded 02/13/24 00:49 congestion Review of Systems 2 Review of Systems: Yes all other systems are reviewed and are negative [facility] Past Medical History Medical History COPD (chronic obstructive pulmonary disease) Uncontrolled diabetes mellitus Depression, major, recurrent Dysuria Kidney stone on left side Diabetes 1.5, managed as type 1 Recurrent UTI COPD (chronic obstructive pulmonary disease) Respiratory failure with hypoxia Urinary tract infection Hypoxemia Morbid obesity CKD (chronic kidney disease) Anemia COPD exacerbation Allergic rhinitis ALDO (obstructive sleep apnea) Obesity (BMI 30-39.9) Constipation due to opioid therapy Osteoarthritis of left knee Hx SBO Hyperlipidemia CPAP (continuous positive airway pressure) dependence History of adrenal adenoma Osteochondroma of left femur Arthritis Diabetes Elevated cholesterol History of restless legs syndrome History of diverticulitis GERD (gastroesophageal reflux disease) Surgical History H/O excision of mass History of oophorectomy History of cholecystectomy History of appendectomy History of arthroscopy of left knee History of partial colectomy Hx of cataract extraction H/O exploratory laparotomy H/O colonoscopy History of surgery History of hysterectomy Family History Family History Father HTN (hypertension) Diabetes mellitus Mother HTN (hypertension) Liver cancer Social History Social History 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: Other 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 Other:: ex- has been staying over Housing: House Are you a primary family member caretaker to a significant other at home: No Do you presently have visiting nurse or other home services: Yes Unable to assess alcohol history related to: Unknown Alcohol intake: never Comment: PT SLEEPING Patient Tobacco Use Status: Never used Tobacco Smoked in Last 30 Days: No e-Cigarette/Vaping Use: Never Used Second Hand Smoke Exposure: No Use of substances other than those prescribed or required for medical reasons: No Advance Directives: Yes Advance Directives on File: Yes Advance Directives Date on File: 10/19/23 Do you have a plan to hurt others: No Plan service: No Current occupational status: retired Cognitive needs: No Hearing needs: No Vision needs: No Physical Exam ED Vital Signs: Vital Signs - 24 hr 02/13/24 00:46 02/13/24 03:06 02/13/24 05:05 Temperature 98.0 F 98.4 F Pulse Rate 83 86 70 Respiratory Rate 20 20 16 Blood Pressure 110/38 L 121/77 Pulse Oximetry 98 99 Oxygen Delivery Method Nasal Cannula Nasal Cannula Oxygen Flow Rate 4 02/13/24 06:33 Temperature 98.4 F Pulse Rate 78 Respiratory Rate 16 Blood Pressure 118/41 L Pulse Oximetry 96 Oxygen Delivery Method Nasal Cannula Oxygen Flow Rate BMI result Body Mass Index 43.9 Const Other: The patient is a morbidly obese 74-year-old woman who looks as though she is chronically ill. She was sleeping when I entered the room. She woke easily with gentle verbal stimulation to a normal mental status. She did not appear in acute distress. HENMT Other: Face is symmetrical. Mucous membranes moist. Eyes Other: Pupils are round equal, conjunctivae are clear Neck Other: No visible JVD. Moving her neck easily. Resp Other: Slight wheezes bilaterally. Breath sounds are equal and symmetrical. No increased work of breathing. Cardio Rate: regular rate Rhythm: regular rhythm Heart sounds: S1 normal heart sound present and S2 normal heart sound present GI Other: Abdomen is soft and nontender Skin Other: Skin is dry and unremarkable Neuro Other: The patient is awake and alert with a normal mental status. Cranial nerves are grossly intact. She moves her extremities symmetrically and seems grossly neurologically intact. Extrem Other: The patient has surgical scars on the left leg at the knee consistent with a previous left knee replacement surgery. She reports some generalized tenderness to the leg but she does not seem to have any focal tenderness. No grossly objective abnormal findings on the left leg. Medications Administered Discontinued Medications Generic Name Dose Route Start Last Admin Trade Name Freq PRN Reason Stop Dose Admin Albuterol/Ipratropium 3 ml 02/13/24 04:40 02/13/24 05:03 Albuterol/Iprat 2.5/0.5mg 3 Ml Ampul.Neb INHALE 02/13/24 04:41 3 ml ONCE ONE Administration Medical Decision Making Medical Decision Making [facility] Narrative: The patient is a 74-year-old woman with multiple medical problems including COPD. She is on home oxygen. She presents with a chief complaint of cough and sputum production. She also has multiple other complaints including left arm pain, pain in her upper back and in her lower back (she describes midline pain in both the upper and the lower back). She also complains of pain in her left leg. Clinically the patient does not appear obviously ill. She had fallen asleep prior to my evaluation. She woke easily to a normal mental status. The patient has an essentially normal EKG. Chest x-ray shows no definite acute findings. Her white blood count is slightly elevated at 11.3 but she has a normal differential. C-reactive protein is minimally elevated at 1.68. Complained of left leg pain and she has a negative DVT of the left leg. From a coronary point of view she spoke about left arm pain troponins. She complained of midline pain in her upper back and her lower back. She has no compression fractures on thoracic or lumbar x-rays. The patient was given a DuoNeb updraft and seemed to feel better. Overall I do not have any significant suspicion for an acute coronary syndrome or a pulmonary embolism. I think this is more likely a COPD exacerbation associated with a variety of body pains. The patient has a fairly frequent user of the emergency room. She will be started on a course of azithromycin. She does not wish to be placed on prednisone and I feel that she is not really that sick and so I think avoiding prednisone at this point is not unreasonable. She seems to feel comfortable being discharged home. Lab Data 02/13/24 02:05 02/13/24 02:05 Labs: Lab Results 02/13/24 Range/Units 02:05 WBC 11.3 H (4.8-10.8) X10*3/uL RBC 3.65 L (4.20-5.50) X10*6/uL Hgb 10.6 L (12.0-16.0) g/dl Hct 33.3 L (37.0-47.0) % MCV 91.2 (80.0-98.0) fL MCH 29.0 (27.0-33.0) pg MCHC 31.8 (31.0-35.0) g/dl RDW 13.2 (11.0-16.0) % Plt Count 206 (160-400) X10*3/uL MPV 11.8 (9.4-12.3) fL Immature Gran % (Auto) 0.3 (0.0-0.4) % Neut % (Auto) 64.3 (45-73) % Lymph % (Auto) 26.1 (20-40) % Elliott % (Auto) 5.9 (2-11) % Eos % (Auto) 3.0 (0-4) % Baso % (Auto) 0.4 (0-2) % Lymph # (Auto) 3.0 (1.2-4.9) X10*3/uL Elliott # (Auto) 0.7 (0.1-1.2) X10*3/uL Eos # (Auto) 0.3 (0.0-0.4) X10*3/uL Baso # (Auto) 0.0 (0.0-0.2) X10*3/uL Abs Immat Gran (auto) 0.03 (0.00-0.03) X10*3/uL Absolute Neuts (auto) 7.3 (2.0-8.3) x10*3/uL Absolute Nucleated RBC 0.000 (0.0-0.012) X10*3/uL Nucleated RBC % (auto) 0.0 (0.0-0.2) /100WBC Sodium 141 (135-145) mmol/L Potassium 4.6 (3.3-5.1) mmol/L Chloride 102 (96-108) mmol/L Carbon Dioxide 30 H (22-29) mmol/L Anion Gap 14 (12-20) BUN 21 H (9-16) mg/dL Creatinine 1.76 H (0.5-1.4) mg/dL Estim Creat Clear Calc 30.1 Estimated GFR 28 Random Glucose 196 H (60-115) mg/dL Calcium 9.2 (8.4-10.2) mg/dL Magnesium 1.8 (1.6-2.6) mg/dL Total Bilirubin 0.2 (0.0-1.0) mg/dL Direct Bilirubin < 0.2 (0.0-0.5) mg/dL AST 12 (5-31) U/L ALT 12 (0-31) U/L Alkaline Phosphatase 37 L (39-117) U/L Troponin I High Sens < 2.7 (<3.5-17.0) ng/L C-Reactive Protein 1.68 H (< or = 0.50) mg/dL B-Natriuretic Peptide < 10 (<100) pg/mL Total Protein 6.1 L (6.5-8.0) g/dL Albumin 3.5 (3.5-5.0) g/dL Lipase 19 (8-78) U/L Influenza Type A (PCR) NEGATIVE (Negative) Influenza Type B (PCR) NEGATIVE (Negative) RSV RNA Qual (PCR) NEGATIVE (Negative) SARS-CoV-2 RNA (RT-PCR) NEGATIVE (Negative) Independent Interpretation I performed an independent interpretation of an: EKG Interpretation: EKG at 09/11/2000 shows normal sinus rhythm at 78 beats per minute. No definite acute ischemic changes. No significant change from previous EKG. Discharge Plan Discharge Clinical Impression: Acute bronchitis, Back pain, Left leg pain Patient Disposition: Home, Self-Care Additional Instructions: Your testing in the emergency room today has been quite reassuring. I think he may have some degree of bronchitis. They have been started on a course of the antibiotic azithromycin. Please take your next dose at around 7:00 AM tomorrow morning and then daily until done. Use your nebulizer machine at home every 4 hours as needed for cough. I would continue the antibiotic you were prescribed yesterday for your urine infection. Therefore you will be taking 2 antibiotics for a bit of time. Please contact your regular doctor on Thursday to arrange a follow up appointment this week. Return to the emergency room if significantly worse. Prescriptions: New azithromycin 250 mg tablet 250 mg PO DAILY 4 Days Qty: 4 0RF Rx Instructions: start on day 2 of therapy No Action (DME) lancets 28 gauge misc See Rx Instructions topical TID Qty: 100 3RF Rx Instructions: once a day (DME) diaper,brief,adult,disposable Misc See Rx Instructions .Route Qty: 64 5RF Rx Instructions: Use for stress incontinence (DME) lancets [OneTouch Delica Lancets] 30 gauge misc See Rx Instructions .Route Qty: 100 2RF Rx Instructions: Use to check blood sugar twice daily and when having symptoms of hypo/hyperglycemia (DME) blood-glucose meter [OneTouch Ultra2 Meter] Misc See Rx Instructions .Route Qty: 1 0RF Rx Instructions: Use to check blood sugar twice daily and when having symptoms of hypo/hyperglycemia (DME) pen needle, diabetic [BD Ultra-Fine Mini Pen Needle] 31 gauge x 3/16 needle See Rx Instructions .Route Qty: 100 2RF Rx Instructions: Use to administer insulin twice daily (DME) walker Misc See Rx Instructions .Route Qty: 1 0RF Rx Instructions: Wheeled walker with seat and brakes (DME) Shower Chair Misc See Rx Instructions .Route Qty: 1 0RF Rx Instructions: Shower chair with back and arm rests (DME) diaper,brief,adult,disposable Misc See Rx Instructions .Route Qty: 200 5RF Rx Instructions: Size medium pull up briefs atorvastatin 80 mg tablet 80 mg PO DAILY 90 Days Qty: 90 0RF (DME) FreeStyle Lite Strips Strip See Rx Instructions .Route Qty: 100 6RF Rx Instructions: Use to check blood sugar 3 times a day as needed lisinopril 5 mg tablet 10 mg PO DAILY Qty: 90 2RF insulin aspart U-100 [Novolog FlexPen U-100 Insulin] 100 unit/mL (3 mL) insulin pen See Protocol subcut TID Qty: 30 5RF Protocol: Insulin Correction Scale Less than or equal to 110 ---- Give (units): 0 111 to 150 Give (units): 0 151 to 200 Give (units): 2 201 to 250 Give (units): 6 251 to 300 Give (units): 8 301 to 350 Give (units): 10 Greater than 350 Give (units): 12 Call MD if Blood Glucose > : 350 Rx Instructions: Up to 10 units before each meal according to sliding scale Trulicity 1.5 mg/0.5 mL pen injector 1.5 mg subcut QWEEK 30 Days Qty: 2.5 4RF montelukast 10 mg tablet 10 mg PO DAILY Qty: 90 1RF gabapentin 300 mg capsule 300 mg PO ONCE Qty: 90 0RF albuterol sulfate 2.5 mg /3 mL (0.083 %) solution for nebulization 2.5 mg inhalation Q4-6H PRN (Reason: shortness of breath or wheezing) Qty: 75 0RF (DME) OneTouch Ultra Test Strip See Rx Instructions .Route Qty: 100 2RF Rx Instructions: Use to check blood sugar 3 times a day as needed (DME) AeroEclipse II Nebulizer Misc See Rx Instructions .ROUTE .MEDSUPPLY Qty: 1 0RF Rx Instructions: As directed hydroxyzine pamoate 25 mg capsule 25 mg PO DAILY trazodone 100 mg tablet 200 mg PO BEDTIME aspirin 81 mg Tablet,Chewable 81 mg PO DAILY cholecalciferol (vitamin D3) 25 mcg (1,000 unit) Capsule 25 mcg PO DAILY citalopram 10 mg tablet 10 mg PO DAILY albuterol sulfate [ProAir HFA] 90 mcg/actuation HFA aerosol inhaler 2 puff inhalation Q4H PRN (Reason: shortness of breath or wheezing) ropinirole 2 mg tablet 2 mg PO BID gabapentin 300 mg capsule 900 mg PO BEDTIME (DME) pen needle, diabetic 31 gauge x 3/16 needle See Rx Instructions subcut TID Qty: 1200 1RF Rx Instructions: 4x a day Levemir FlexPen 100 unit/mL (3 mL) insulin pen See Rx Instructions subcut BID 90 Days Qty: 40.5 3RF Rx Instructions: 15 u in am, and 30 u at bed time cephalexin 500 mg capsule 500 mg PO BID Qty: 10 0RF bupropion HCl 150 mg tablet extended release 24 hr 150 mg PO DAILY (DME) oxygen-air delivery systems Device See Rx Instructions .ROUTE .MEDSUPPLY Qty: 1 Rx Instructions: As directed Print Language: Kenyan
[2024-02-13] MEDS: Albuterol/Iprat 2.5/0.5MG 3 ML AMPUL.NEB INHALE (05:03)
[2024-02-13 05:08] LABS: C Reactive Protein 1.68 mg/dL (< or = 0.50)
[2024-02-13 05:19] LABS: B Type Natriuretic Peptide < 10 pg/mL (<100)
--- NOTE | 2024-02-13 06:15 | PC.NURSE ---
Pt back from US. Plan of care ongoing.
--- NOTE | 2024-02-13 06:22 | PC.NURSE ---
Pt requested and assisted to bedside commode. Plan of care ongoing.
--- NOTE | 2024-02-13 06:28 | PC.NURSE ---
Pt assisted back into bed. Plan of care ongoing.
[2024-02-13] MEDS: Azithromycin 500 MG TABLET PO (07:20)
== END 2024-02-13 07:31 | disposition home or self-care (01) ==
PROVIDERS: Physician Assistant Medical; Emergency Provider Emergency Medicine; PCP Internal Medicine
DX: J40 Bronchitis, not specified as acute or chronic (principal); M79.605 Pain in left leg; M54.9 Dorsalgia, unspecified; R06.02 Shortness of breath; E10.9 Type 1 diabetes mellitus without complications; E78.5 Hyperlipidemia, unspecified; J44.9 Chronic obstructive pulmonary disease, unspecified; Z99.81 Dependence on supplemental oxygen; Z79.4 Long term (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 insulin; Z79.02 Long term (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 antithrombotics/antiplatelets
CPT/HCPCS: 0241U; 36415; 71045; 72072; 72100; 80048; 80076; 83690; 83735; 83880; 84484; 85025; 86140; 93005; 93971; 94640; 99284; 99285

== ENCOUNTER → 2024-02-13 01:24 | Outpatient (BNV) | payer OTHER, SELFPAY | PROVIDERS: Emergency Provider Emergency Medicine; PCP Internal Medicine; Visit Provider Internal Medicine Cardiovascular Disease | DX: R06.02 Shortness of breath (principal) | CPT/HCPCS: 93010 ==

== ENCOUNTER 2024-02-24 11:03 | Outpatient (AMB) | payer MEDICARE, SELFPAY ==
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
[2024-02-24 11:08] VITALS: BP 164/76; PULSE 96; O2SAT 94; BMI 44.5
== END 2024-02-24 11:48 | disposition home or self-care (01) ==
PROVIDERS: PCP Internal Medicine; Visit Provider Internal Medicine
DX: Z00.01 Encounter for general adult medical examination with abnormal findings (principal); E11.40 Type 2 diabetes mellitus with diabetic neuropathy, unspecified; N18.32 Chronic kidney disease, stage 3b; M79.622 Pain in left upper arm; M25.512 Pain in left shoulder; E66.01 Morbid (severe) obesity due to excess calories; J43.1 Panlobular emphysema; R80.9 Proteinuria, unspecified; Z91.81 History of falling; E78.9 Disorder of lipoprotein metabolism, unspecified
CPT/HCPCS: 83036; 99214; 99397

== ENCOUNTER 2024-02-24 11:54 | Outpatient (REF) | payer OTHER, SELFPAY ==
--- NOTE | ~2024-02-24 | XR_ITS ---
EXAMINATION: XR CHEST 1 VIEW, XR SHOULDER 2 OR MORE VIEWS LEFT, XR HUMERUS LEFT CLINICAL INFORMATION: Cough. Pain. Left upper arm pain. COMPARISON: Chest radiograph 02/13/2024 . Chest radiograph 11/29/2023, chest radiograph 10/17/2023, chest radiograph 07/24/2023. TECHNIQUE: AP chest radiograph; AP and lateral radiographs of the left humerus; AP neutral, transscapular and repeat transscapular radiographs of the left shoulder FINDINGS: Chest: Low lung volumes are present. Making allowances for low lung volumes, mild diffuse vascular indistinctness is noted in diffuse fine pulmonary reticular opacities are visualized. No focal pulmonary consolidation noted. No effusions or pneumothoraces identified. The heart size is grossly normal. No displaced rib fractures noted. Left humerus and left shoulder: Chronic posterior neck deformity of the proximal left humerus is noted. No erosive osseous lesions noted. Mild osteophytosis of the acromioclavicular joint is visualized. Chronic posttraumatic deformity of the lateral segment left second rib is visualized. Grossly normal glenohumeral alignment is identified. Cortical irregularity of the humeral head which is well-corticated is noted and may represent chronic posttraumatic deformity. XR/XR shoulder LT min 2V IMPRESSION: Chest: *Findings suspicious for mild pulmonary vascular congestion. 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 *Osteoarthritis of the left acromioclavicular joint. *Chronic appearing posttraumatic deformity of the lateral segment of the left second rib. *No acute abnormalities identified. Electronically signed by: Jasson Aquino MD 03/06/2024 05:49 AM EDT
--- NOTE | ~2024-02-24 | XR_ITS ---
EXAMINATION: XR CHEST 1 VIEW, XR SHOULDER 2 OR MORE VIEWS LEFT, XR HUMERUS LEFT CLINICAL INFORMATION: Cough. Pain. Left upper arm pain. COMPARISON: Chest radiograph 02/13/2024 . Chest radiograph 11/29/2023, chest radiograph 10/17/2023, chest radiograph 07/24/2023. TECHNIQUE: AP chest radiograph; AP and lateral radiographs of the left humerus; AP neutral, transscapular and repeat transscapular radiographs of the left shoulder FINDINGS: Chest: Low lung volumes are present. Making allowances for low lung volumes, mild diffuse vascular indistinctness is noted in diffuse fine pulmonary reticular opacities are visualized. No focal pulmonary consolidation noted. No effusions or pneumothoraces identified. The heart size is grossly normal. No displaced rib fractures noted. Left humerus and left shoulder: Chronic posterior neck deformity of the proximal left humerus is noted. No erosive osseous lesions noted. Mild osteophytosis of the acromioclavicular joint is visualized. Chronic posttraumatic deformity of the lateral segment left second rib is visualized. Grossly normal glenohumeral alignment is identified. Cortical irregularity of the humeral head which is well-corticated is noted and may represent chronic posttraumatic deformity. XR/XR humerus LT IMPRESSION: Chest: *Findings suspicious for mild pulmonary vascular congestion. 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 *Osteoarthritis of the left acromioclavicular joint. *Chronic appearing posttraumatic deformity of the lateral segment of the left second rib. *No acute abnormalities identified. Electronically signed by: Jasson Aquino MD 03/06/2024 05:49 AM EDT
== END 2024-02-24 11:55 | disposition home or self-care (01) ==
LOC: HO.HMGCX 11:54
PROVIDERS: PCP Internal Medicine; Visit Provider Internal Medicine
DX: M79.622 Pain in left upper arm (principal); M25.512 Pain in left shoulder
CPT/HCPCS: 73030; 73060

== ENCOUNTER 2024-03-03 09:54 | Outpatient (AMB) | payer MEDICARE, SELFPAY ==
[2024-03-03 09:51] VITALS: BP 106/62; PULSE 82; O2SAT 96; BMI 43.9
--- NOTE | 2024-03-03 09:51 | HO.NEPHOV ---
Vital Signs 03/03/24 09:51 Height 5 ft Weight 225 lb BMI 43.9 BP 106/62 Blood Pressure Location Rt radial Position Sitting Pulse 82 Pulse Source Pulse Oximeter Pulse Oximetry (%) 96 Oxygen Delivery Method Room Air Intake Visit Reasons: Anemia/ 4 MO FU/ Conf Media Marketing Specialist Required: No Accompanied by: Spouse Allergies adhesive tape [ADHESIVE TAPE] Allergy (Intermediate, Verified 03/03/24 09:54) RASH trimethobenzamide [From TIGAN] Allergy (Mild, Verified 03/03/24 09:54) NAUSEA NSAIDS (Non-Steroidal Anti-Inflamma Adverse Reaction (Mild, Verified 03/03/24 09:54) Nephropathy environmental Allergy (Intermediate, Uncoded 02/13/24 00:49) Nasal congestion Medication List - Last Reconciled 03/03/24 by Peter Alexander MD albuterol sulfate 90 mcg/actuation (ProAir HFA) 2 puffs inhalation Q4H PRN albuterol sulfate 2.5 mg (3 mL) inhalation Q4-6H PRN aspirin 81 mg PO DAILY atorvastatin 80 mg PO DAILY 90 days blood sugar diagnostic (Private Practiceuch Ultra Test strips) Use to check blood sugar 3 times a day as needed blood sugar diagnostic (FreeStyle Lite Strips) Use to check blood sugar 3 times a day as needed blood-glucose meter (Bedloo Ultra2 Meter) Use to check blood sugar twice daily and when having symptoms of hypo/hyperglycemia bupropion HCl XL 150 mg PO DAILY cholecalciferol (vitamin D3) 25 mcg PO DAILY citalopram 10 mg PO DAILY diaper,brief,adult,disposable Size medium pull up briefs diaper,brief,adult,disposable Use for stress incontinence dulaglutide (Trulicity) 1.5 mg (0.5 mL) subcut QWEEK 30 days gabapentin 300 mg PO ONCE gabapentin 900 mg PO BEDTIME hydroxyzine pamoate 25 mg PO DAILY insulin aspart U-100 (Novolog FlexPen U-100 Insulin aspart) See Protocol sliding scale doses subcut TID insulin detemir U-100 (Levemir FlexPen) 15 u in am, and 30 u at bed time 90 days lancets once a day lancets (ApriusTouch Delica Lancets) Use to check blood sugar twice daily and when having symptoms of hypo/hyperglycemia lisinopril 10 mg (2 x 5 mg) PO DAILY montelukast 10 mg PO DAILY nebulizers (AeroEclipse II Nebulizer) As directed oxygen-air delivery systems As directed pen needle, diabetic (BD Ultra-Fine Mini Pen Needle) Use to administer insulin twice daily pen needle, diabetic 4x a day ropinirole 2 mg PO BID Shower Chair Shower chair with back and arm rests trazodone 200 mg PO BEDTIME walker Wheeled walker with seat and brakes HPI Comments Details: 73-year-old woman with hypertension, hyperlipidemia, diabetes mellitus, GERD, osteoarthritis, CKD3, osteo chondroma left femur history of COPD on 2 L of oxygen, history of obstructive sleep apnea on CPAP. h/o CKD 3 : Baseline creatinine of 1.5 h/o few episodes of AGUSTIN - mostly due to hypoperfusion and resolved Recently had UTI with E.Coli and treated with Bactrim x 3 days Blood sugar has been elevated; A1C was 9.9% Trulicity has been prescribed but she has not started yet due to insurance issues 10/27/23 UTI in Aug treated with antibiotics Now on prednisone for COPD Blood sugar is elevated and has polyuria 03/03/24 c/o Back pain and generalized body pain Recurrent UTI Now on Trulicity [facility] Medical History (Updated 03/03/24 @ 10:12 by Peter Alexander MD) Recurrent UTI COPD (chronic obstructive pulmonary disease) Uncontrolled diabetes mellitus Depression, major, recurrent Dysuria Kidney stone on left side Diabetes 1.5, managed as type 1 COPD (chronic obstructive pulmonary disease) Respiratory failure with hypoxia Urinary tract infection Hypoxemia Morbid obesity CKD (chronic kidney disease) Anemia COPD exacerbation Allergic rhinitis ALDO (obstructive sleep apnea) Obesity (BMI 30-39.9) Constipation due to opioid therapy Osteoarthritis of left knee Hx SBO Hyperlipidemia CPAP (continuous positive airway pressure) dependence History of adrenal adenoma Osteochondroma of left femur Arthritis Diabetes Elevated cholesterol History of restless legs syndrome History of diverticulitis GERD (gastroesophageal reflux disease) Surgical History H/O excision of mass History of oophorectomy History of cholecystectomy History of appendectomy History of arthroscopy of left knee History of partial colectomy Hx of cataract extraction H/O exploratory laparotomy H/O colonoscopy History of surgery History of hysterectomy Family History Father HTN (hypertension) Diabetes mellitus Mother HTN (hypertension) Liver cancer Social History 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: Other 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 Other:: ex- has been staying over Housing: House Are you a primary career discovery teacher to a significant other at home: No Do you presently have visiting nurse or other home services: Yes Unable to assess alcohol history related to: Unknown Alcohol intake: never Comment: PT SLEEPING Patient Tobacco Use Status: Never used Tobacco e-Cigarette/Vaping Use: Never Used Second Hand Smoke Exposure: No Advance Directives Date on File: 10/19/23 service: No Current occupational status: retired Cognitive needs: No Hearing needs: No Vision needs: No Female Reproductive History Menstrual Age of Menarche: 13 Physical Exam Vital Signs: Last Vital Signs Pulse 82 03/03/24 09:51 BP 106/62 03/03/24 09:51 Pulse Ox 96 03/03/24 09:51 Oxygen Delivery Method Room Air 03/03/24 09:51 BMI result Body Mass Index 43.9 Const General: comfortable; No acute distress Orientation/consciousness: patient oriented x3 Eyes General: appearance normal, both eyes and all related structures Visual Nation: normal visual nation by confrontation Neck Neck: Yes supple and Yes no JVD Resp Effort & Inspection: normal respiratory effort and respiratory effort not decreased Auscultation: rhonchi Cardio Palpation: no palpable S3 and no palpable S4 Heart sounds: no rubs GI Inspection: Yes normal to inspection Palpation (GI): Soft to palpation Percussion: Yes normal to percussion Auscultation: normal bowel sounds General: Yes no CVA tenderness Back/Spine/Pelvis Back: no CVA tenderness Skin General skin exam: no petechiae and no purpura Neuro General: patient oriented x3 and no focal motor deficits Extrem General: No clubbing and No edema Results Reviewed Nephrology Results: Hgb 10.6 g/dl (12.0-16.0) L 02/13/24 WBC 11.3 X10*3/uL (4.8-10.8) H 02/13/24 Plt Count 206 X10*3/uL (160-400) 02/13/24 Sodium 141 mmol/L (135-145) 02/13/24 Potassium 4.6 mmol/L (3.3-5.1) 02/13/24 Chloride 102 mmol/L (96-108) 02/13/24 Carbon Dioxide 30 mmol/L (22-29) H 02/13/24 BUN 21 mg/dL (9-16) H 02/13/24 Creatinine 1.76 mg/dL (0.5-1.4) H 02/13/24 Calcium 9.2 mg/dL (8.4-10.2) 02/13/24 Urine Protein Negative mg/dL (Neg-Trace) 01/28/24 Assessment & Plan Assessment & Plan (1) CKD (chronic kidney disease): Code(s): N18.9 - Chronic kidney disease, unspecified Category: Medical Qualifiers: Chronic kidney disease stage: stage 3 (moderate) Chronic kidney disease stage 3 subtype: stage 3b (GFR 30-44) Qualified Code(s): N18.32 - Chronic kidney disease, stage 3b Plan: Due to Hypertensive diabetic kidney disease Urine sediments are balnd- NO reason to suspect AGN/AiN Obstruction unlikely based on recent CT scan Creatinine is close to baseline Goal is to slow the progression of kidney disease Contine to avoid nephrotoxins including NSAIDS - Discussed with Mine Avoid Hypotension and maintain BP < 130/80 Optimize blood sugar Continue ACEi for renal protection Would benefit from SGLT-2 inhibitor Needs weight loss No significnat edema No need for diuretics REcurrent UTI Repeat urine culture (2) Morbid obesity: Code(s): E66.01 - Morbid (severe) obesity due to excess calories Category: Medical Plan: Discussed weight loss (3) Anemia: Code(s): D64.9 - Anemia, unspecified Category: Medical Qualifiers: Anemia type: due to chronic kidney disease Chronic kidney disease stage: stage 3 (moderate) Chronic kidney disease stage 3 subtype: stage 3a (GFR 45-59) Qualified Code(s): N18.31 - Chronic kidney disease, stage 3a; D63.1 - Anemia in chronic kidney disease Plan: Multifactorial No indication for Epogen (4) Recurrent UTI: Comment: She has no urinary symptoms at this time Code(s): N39.0 - Urinary tract infection, site not specified Category: Medical Plan . Orders: Orders Total Protein Urine Random Today N18.32 - Chronic kidney disease, stage 3b, N39.0 - Urinary tract infection, site not specified UA and rflx microscopic Today N18.32 - Chronic kidney disease, stage 3b, N39.0 - Urinary tract infection, site not specified Basic Metabolic Panel 4 Months N18.32 - Chronic kidney disease, stage 3b Creatinine Urine Today N18.32 - Chronic kidney disease, stage 3b, N39.0 - Urinary tract infection, site not specified Urine Culture Today N18.32 - Chronic kidney disease, stage 3b, N39.0 - Urinary tract infection, site not specified Complete Blood Count Auto Diff 4 Months N18.32 - Chronic kidney disease, stage 3b Coding Level of Care Code Est Pt Level 4 (78392) Diagnoses Stage 3b chronic kidney disease N18.32 Chronic kidney disease stage: stage 3 (moderate) Chronic kidney disease stage 3 subtype: stage 3b (GFR 30-44) Morbid obesity E66.01 Anemia due to stage 3a chronic kidney disease N18.31; D63.1 Anemia type: due to chronic kidney disease Chronic kidney disease stage: stage 3 (moderate) Chronic kidney disease stage 3 subtype: stage 3a (GFR 45-59) Recurrent UTI N39.0
== END 2024-03-03 10:15 | disposition home or self-care (01) ==
PROVIDERS: PCP Internal Medicine; Visit Provider Internal Medicine Hypertension Specialist
DX: N18.32 Chronic kidney disease, stage 3b (principal); E66.01 Morbid (severe) obesity due to excess calories; N18.31 Chronic kidney disease, stage 3a; D63.1 Anemia in chronic kidney disease; N39.0 Urinary tract infection, site not specified
CPT/HCPCS: 99214

== ENCOUNTER → 2024-03-03 09:54 | Outpatient (BNVA) | payer MEDICARE, SELFPAY | PROVIDERS: PCP Internal Medicine; Visit Provider Internal Medicine Hypertension Specialist | DX: I12.9 Hypertensive chronic kidney disease with stage 1 through stage 4 chronic kidney disease, or unspecified chronic kidney disease (principal); E11.22 Type 2 diabetes mellitus with diabetic chronic kidney disease; N18.32 Chronic kidney disease, stage 3b; D63.1 Anemia in chronic kidney disease; E78.5 Hyperlipidemia, unspecified; J44.9 Chronic obstructive pulmonary disease, unspecified; E66.01 Morbid (severe) obesity due to excess calories; N39.0 Urinary tract infection, site not specified; Z99.81 Dependence on supplemental oxygen; Z68.41 Body mass index [BMI] 40.0-44.9, adult | CPT/HCPCS: 99212 ==

== ENCOUNTER 2024-03-06 04:33 | Emergency (ER) | payer MEDICARE, SELFPAY ==
--- NOTE | ~2024-03-06 | XR_ITS ---
EXAMINATION: XR CHEST 1 VIEW, XR SHOULDER 2 OR MORE VIEWS LEFT, XR HUMERUS LEFT CLINICAL INFORMATION: Cough. Pain. Left upper arm pain. COMPARISON: Chest radiograph 02/13/2024 . Chest radiograph 11/29/2023, chest radiograph 10/17/2023, chest radiograph 07/24/2023. TECHNIQUE: AP chest radiograph; AP and lateral radiographs of the left humerus; AP neutral, transscapular and repeat transscapular radiographs of the left shoulder FINDINGS: Chest: Low lung volumes are present. Making allowances for low lung volumes, mild diffuse vascular indistinctness is noted in diffuse fine pulmonary reticular opacities are visualized. No focal pulmonary consolidation noted. No effusions or pneumothoraces identified. The heart size is grossly normal. No displaced rib fractures noted. Left humerus and left shoulder: Chronic posterior neck deformity of the proximal left humerus is noted. No erosive osseous lesions noted. Mild osteophytosis of the acromioclavicular joint is visualized. Chronic posttraumatic deformity of the lateral segment left second rib is visualized. Grossly normal glenohumeral alignment is identified. Cortical irregularity of the humeral head which is well-corticated is noted and may represent chronic posttraumatic deformity. XR/XR chest 1V IMPRESSION: Chest: *Findings suspicious for mild pulmonary vascular congestion. 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 *Osteoarthritis of the left acromioclavicular joint. *Chronic appearing posttraumatic deformity of the lateral segment of the left second rib. *No acute abnormalities identified. Electronically signed by: Jasson Aquino MD 03/06/2024 05:49 AM EDT
[2024-03-06 04:36] VITALS: BP 168/82; PULSE 88; O2SAT 95
[2024-03-06 04:38] VITALS: BP 172/82; PULSE 96; RESP 16; TEMP 36.8; O2SAT 97; BMI 44.3
--- NOTE | 2024-03-06 04:40 | ECG_ITS ---
Test Reason : SOB Blood Pressure : / mmHG Vent. Rate : 084 BPM Atrial Rate : 084 BPM P-R Int : 158 ms QRS Dur : 080 ms QT Int : 376 ms P-R-T Axes : 034 023 036 degrees QTc Int : 444 ms Normal sinus rhythm Normal ECG When compared with ECG of 13-FEB-2024 01:32, No significant change was found Referred By: Cleopatra Rogers Electronically Signed By:ANNABEL YEBOAH
--- NOTE | 2024-03-06 04:44 | ED_ITS ---
HPI - General Adult General Chief complaint: Dyspnea Stated complaint: Congestion/?Syncope Time Seen by Provider: 03/06/24 04:36 Source: patient and EMS Mode of arrival: EMS Limitations: no limitations History of Present Illness ED Provider: Dr. Cleopatra Rogers HPI narrative: Patient comes to the emergency room complaining of cough, mild shortness of breath for several days. Patient states that she has been trying to use her inhalers at home and neb machine without any relief. Patient states that although she is short of breath, is very mild. The most annoying symptom is the dry cough. Patient called 911, patient's oxygen saturation in the low 90s. Patient is oxygen dependent on 2 L for COPD. Patient was given albuterol per EMS. Patient complaining of nausea. Patient denies any chest pain, denies fever or chills. Related Data Home Medications ?Medication ?Instructions ?Recorded ?Confirmed bupropion HCl 150 mg 24 hr tablet, 150 mg PO DAILY 04/25/20 03/03/24 extended release oxygen-air delivery systems ##1 04/25/20 03/03/24 aspirin 81 mg chewable tablet 81 mg PO DAILY 10/01/21 03/03/24 trazodone 100 mg tablet 200 mg PO BEDTIME 10/01/21 03/03/24 cholecalciferol (vitamin D3) 25 25 mcg PO DAILY 01/04/22 03/03/24 mcg (1,000 unit) capsule hydroxyzine pamoate 25 mg capsule 25 mg PO DAILY 08/13/22 03/03/24 citalopram 10 mg tablet 10 mg PO DAILY 06/06/23 03/03/24 albuterol sulfate 90 mcg/actuation 2 puff inhalation Q4H PRN 09/02/23 03/03/24 aerosol inhaler (ProAir HFA) shortness of breath or wheezing ropinirole 2 mg tablet 2 mg PO BID 09/02/23 03/03/24 gabapentin 300 mg capsule 900 mg PO BEDTIME 10/27/23 03/03/24 Previous Rx's ?Medication ?Instructions ?Recorded nebulizers (AeroEclipse II #1 ea 02/05/21 Nebulizer) lancets 28 gauge #100 ea 06/24/21 diaper,brief,adult,disposable #64 ea 05/06/22 lancets 30 gauge (OneTouch Delica #100 ea 09/16/22 Lancets) blood-glucose meter (OneTouch #1 ea 09/19/22 Ultra2 Meter) pen needle, diabetic 31 gauge x #100 ea 10/14/2209/25 (BD Ultra-Fine Mini Pen Needle) pen needle, diabetic 31 gauge x #1,200 ea 02/18/2309/25 walker #1 ea 05/20/23 Shower Chair #1 ea 05/27/23 diaper,brief,adult,disposable #200 ea 09/07/23 atorvastatin 80 mg tablet 80 mg PO DAILY 90 days #90 tabs 10/09/23 blood sugar diagnostic (FreeStyle #100 ea 11/13/23 Lite Strips) insulin detemir U-100 100 unit/mL See Rx Instructions subcut BID 90 12/24/23 (3 mL) subcutaneous pen (Levemir days #40.5 mL FlexPen) dulaglutide 1.5 mg/0.5 mL 1.5 mg (0.5 mL) subcut QWEEK 30 12/25/23 subcutaneous pen injector days #2.5 mL (Trulicity) insulin aspart U-100 100 unit/mL See Protocol subcut TID #30 mL 12/25/23 (3 mL) subcutaneous pen (Novolog FlexPen U-100 Insulin aspart) lisinopril 5 mg tablet 10 mg (2 x 5 mg) PO DAILY #90 tabs 12/25/23 montelukast 10 mg tablet 10 mg PO DAILY #90 tabs 12/25/23 gabapentin 300 mg capsule 300 mg PO ONCE #90 caps 01/25/24 blood sugar diagnostic (OneTouch #100 ea 02/10/24 Ultra Test strips) albuterol sulfate 2.5 mg/3 mL 2.5 mg (3 mL) inhalation Q4-6H PRN 02/18/24 (0.083 %) solution for nebulization shortness of breath or wheezing #75 mL benzonatate 100 mg capsule 100 mg PO TID PRN cough #14 caps 03/06/24 Allergies Allergy/AdvReac Type Severity Reaction Status Date / Time adhesive tape [ADHESIVE TAPE] Allergy Intermediate RASH Verified 03/06/24 04:40 trimethobenzamide Allergy Mild NAUSEA Verified 03/06/24 04:40 [From TIGAN] NSAIDS (Non-Steroidal AdvReac Mild Nephropathy Verified 03/06/24 04:40 Anti-Inflamma environmental Allergy Intermediate Nasal Uncoded 02/13/24 00:49 congestion Review of Systems 2 Review of Systems: Constitutional : No Weight loss, No Fever, No Chills, No Night Sweats, No Fatigue, No Malaise ENT/Mouth : No Hearing loss, No Ear Pain, No Nasal Congestion, No Sinus Pain, No Hoarseness, No sore throat, No Rhinorrhea, No Swallowing Difficulty Eyes: No Eye Pain, No Swelling, No Redness, No Foreign Body, No Discharge, No Vision Changes Cardiovascular : No Chest Pain, No SOB, No Dyspnea on Exertion, No Orthopnea, No Edema, No Palpitations Respiratory : Complaining of productive cough, wheezing, shortness of breath Gastrointestinal : No Nausea, No Vomiting, No Diarrhea, No Constipation, No abdominal Pain, No Hematochezia, No Melena Genitourinary : no irregular bleeding, No Dysuria, No Urinary Frequency, No Hematuria, No Urinary Incontinence, No Urgency, No Flank Pain, No Urinary Flow Changes, No Hesitancy Musculoskeletal : No joint pain, No Myalgias, No Joint Swelling Skin : No Skin Lesions, No rash Neuro : No Weakness, No Numbness, No Paresthesias, No Loss of Consciousness, No Dizziness, No Headache Psych : No Anxiety/Panic, No Depression, No SI/HI/AH/VH, No Social Issues, Heme/Lymph: No Bruising, No Bleeding,No Lymphadenopathy Endocrine : No Polyuria, No Polydipsia, No Temperature Intolerance PMFSH Past Medical History Medical History Recurrent UTI COPD (chronic obstructive pulmonary disease) Uncontrolled diabetes mellitus Depression, major, recurrent Dysuria Kidney stone on left side Diabetes 1.5, managed as type 1 COPD (chronic obstructive pulmonary disease) Respiratory failure with hypoxia Urinary tract infection Hypoxemia Morbid obesity CKD (chronic kidney disease) Anemia COPD exacerbation Allergic rhinitis ALDO (obstructive sleep apnea) Obesity (BMI 30-39.9) Constipation due to opioid therapy Osteoarthritis of left knee Hx SBO Hyperlipidemia CPAP (continuous positive airway pressure) dependence History of adrenal adenoma Osteochondroma of left femur Arthritis Diabetes Elevated cholesterol History of restless legs syndrome History of diverticulitis GERD (gastroesophageal reflux disease) Surgical History H/O excision of mass History of oophorectomy History of cholecystectomy History of appendectomy History of arthroscopy of left knee History of partial colectomy Hx of cataract extraction H/O exploratory laparotomy H/O colonoscopy History of surgery History of hysterectomy Family History Family History Father HTN (hypertension) Diabetes mellitus Mother HTN (hypertension) Liver cancer Social History Social History 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: Other 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 Other:: ex- has been staying over Housing: House Are you a primary career education teacher to a significant other at home: No Do you presently have visiting nurse or other home services: Yes Unable to assess alcohol history related to: Unknown Alcohol intake: never Comment: PT SLEEPING Patient Tobacco Use Status: Never used Tobacco Smoked in Last 30 Days: No e-Cigarette/Vaping Use: Never Used Second Hand Smoke Exposure: No Use of substances other than those prescribed or required for medical reasons: No Advance Directives: Yes Advance Directives on File: Yes Advance Directives Date on File: 10/19/23 Do you have a plan to hurt others: No Plan service: No Current occupational status: retired Cognitive needs: No Hearing needs: No Vision needs: No Physical Exam ED Vital Signs: Vital Signs - 24 hr 03/06/24 04:38 03/06/24 04:56 Temperature 98.2 F Pulse Rate 96 87 Respiratory Rate 16 16 Blood Pressure 172/82 H Pulse Oximetry 97 Oxygen Delivery Method Nasal Cannula BMI result Body Mass Index 44.3 Const Other: Appearance: Alert. Oriented X3. No acute distress. Eyes: Pupils equal, round and reactive to light. ENT: Pharynx normal. Neck: Normal inspection. Neck supple. No lymph nodes noted. No crepitus CVS: Normal heart rate and rhythm. Pulses normal. Normal S1 and S2 Respiratory: 94 % on 2 L oxygen, very minimal wheezing, no crackles, speaking full sentences Abdomen: Soft and nontender. No rigidity. No distention. Skin: Skin warm and dry. Normal skin color. Normal skin turgor. Extremities: No lower extremity edema. No Lacerations. No Rash Neuro: Oriented X 3. No motor deficit. No sensory deficit. Moving all extremities. No slurred speech. CN 2 through 12 grossly intact Psych: calm, cooperative, normal affect Course Course Course Narrative: All of patient's labs and imaging pending -patient receiving another breathing treatment, Solu-Medrol, azithromycin and ceftriaxone Medications Administered Generic Name Dose Route Start Last Admin Trade Name Freq PRN Reason Stop Dose Admin Azithromycin 500 mg/ Sodium 250 mls @ 125 mls/hr 03/06/24 04:40 03/06/24 05:49 Chloride IV 03/06/24 06:39 125 mls/hr ONCE ONE Administration Discontinued Medications Generic Name Dose Route Start Last Admin Trade Name Freq PRN Reason Stop Dose Admin Sodium Chloride 1,000 mls @ 999 mls/hr 03/06/24 04:40 03/06/24 05:16 Ns IVCONT 03/06/24 05:40 999 mls/hr .Q1H1M ONE Administration Ceftriaxone Sodium 1 gm/ 50 mls @ 100 mls/hr 03/06/24 04:40 03/06/24 05:49 Sodium Chloride IV 03/06/24 05:09 Infused ONCE ONE Infusion Methylprednisolone Sodium Succinate 125 mg 03/06/24 04:40 03/06/24 05:16 Methylprednisolone Sod Succ 125 Mg/2 Ml Vial IVPUSH 03/06/24 04:41 125 mg ONCE ONE Administration Ondansetron HCl 4 mg 03/06/24 04:42 03/06/24 05:16 Ondansetron Hcl 4 Mg/2 Ml Vial IVPUSH 03/06/24 04:43 4 mg ONCE ONE Administration Medical Decision Making Medical Decision Making [facility] Narrative: My interpretation of labs: Patient's hematology at baseline coagulation normal, chemistry at baseline, creatinine 1.67 which is baseline for the patient, patient tested positive for COVID-19 -pt on her O2, 97%, walking around her room, no desaturations. Patient not tachycardic, no lower extremity pain. Patient states that what bothers her the most is a dry cough. -patient states that she feels well to go home. Patient states that her ex- who lives with her also has the same symptoms, likely also has COVID. -patient is not tachycardic, no fever, no hypotension, no fever, oxygen saturation is at baseline, pulmonary embolism is not suspected -chest x-ray: Mild pulmonary vascular congestion, no infiltrates Differential Diagnosis Differential Diagnoses: The differential diagnosis associated with the presentation includes (COVID, RSV, influenza, viral syndrome, pneumonia) Admission/Observation Consideration of admission/observation: Escalation of care including admission/observation considered (Given patient's symptoms, age and past medical history, observation/admission considered. Patient states that she feels well and requests to go home) Lab Data MDM Lab Attestation statement: I reviewed the patient's lab results. 03/06/24 05:12 03/06/24 05:12 Labs: Lab Results 03/06/24 Range/Units 05:12 WBC 13.1 H (4.8-10.8) X10*3/uL RBC 3.60 L (4.20-5.50) X10*6/uL Hgb 10.5 L (12.0-16.0) g/dl Hct 33.2 L (37.0-47.0) % MCV 92.2 (80.0-98.0) fL MCH 29.2 (27.0-33.0) pg MCHC 31.6 (31.0-35.0) g/dl RDW 13.0 (11.0-16.0) % Plt Count 224 (160-400) X10*3/uL MPV 11.9 (9.4-12.3) fL Immature Gran % (Auto) 0.5 H (0.0-0.4) % Neut % (Auto) 74.2 H (45-73) % Lymph % (Auto) 16.1 L (20-40) % Parker % (Auto) 6.0 (2-11) % Eos % (Auto) 2.8 (0-4) % Baso % (Auto) 0.4 (0-2) % Lymph # (Auto) 2.1 (1.2-4.9) X10*3/uL Parker # (Auto) 0.8 (0.1-1.2) X10*3/uL Eos # (Auto) 0.4 (0.0-0.4) X10*3/uL Baso # (Auto) 0.1 (0.0-0.2) X10*3/uL Abs Immat Gran (auto) 0.07 H (0.00-0.03) X10*3/uL Absolute Neuts (auto) 9.7 H (2.0-8.3) x10*3/uL Absolute Nucleated RBC 0.000 (0.0-0.012) X10*3/uL Nucleated RBC % (auto) 0.0 (0.0-0.2) /100WBC PT 11.7 (11.1-13.3) SEC INR 1.0 (0.9-1.1) Sodium 141 (135-145) mmol/L Potassium 4.8 (3.3-5.1) mmol/L Chloride 102 (96-108) mmol/L Carbon Dioxide 29 (22-29) mmol/L Anion Gap 15 (12-20) BUN 28 H (9-16) mg/dL Creatinine 1.67 H (0.5-1.4) mg/dL Estim Creat Clear Calc 31.9 Estimated GFR 30 Random Glucose 137 H (60-115) mg/dL Lactic Acid 1.3 (0.5-2.0) mmol/L Calcium 9.4 (8.4-10.2) mg/dL Magnesium 1.9 (1.6-2.6) mg/dL Total Bilirubin 0.3 (0.0-1.0) mg/dL Direct Bilirubin 0.1 (0.0-0.5) mg/dL AST 15 (5-31) U/L ALT 14 (0-31) U/L Alkaline Phosphatase 38 L (39-117) U/L Troponin I High Sens < 2.7 (<3.5-17.0) ng/L B-Natriuretic Peptide < 10 (<100) pg/mL Total Protein 6.3 L (6.5-8.0) g/dL Albumin 3.5 (3.5-5.0) g/dL Influenza Type A (PCR) NEGATIVE (Negative) Influenza Type B (PCR) NEGATIVE (Negative) RSV RNA Qual (PCR) NEGATIVE (Negative) SARS-CoV-2 RNA (RT-PCR) POSITIVE A (Negative) Independent Interpretation I performed an independent interpretation of an: Plain X-Ray Radiology Impression Discussion of test interpretation with radiology: I have reviewed the radiologist's reading. Radiologist Impression: FINDINGS: Chest: Low lung volumes are present. Making allowances for low lung volumes, mild diffuse vascular indistinctness is noted in diffuse fine pulmonary reticular opacities are visualized. No focal pulmonary consolidation noted. No effusions or pneumothoraces identified. The heart size is grossly normal. No displaced rib fractures noted. Left humerus and left shoulder: Chronic posterior neck deformity of the proximal left humerus is noted. No erosive osseous lesions noted. Mild osteophytosis of the acromioclavicular joint is visualized. Chronic posttraumatic deformity of the lateral segment left second rib is visualized. Grossly normal glenohumeral alignment is identified. Cortical irregularity of the humeral head which is well-corticated is noted and may represent chronic posttraumatic deformity. XR/XR chest 1V IMPRESSION: Chest: *Findings suspicious for mild pulmonary vascular congestion. 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 *Osteoarthritis of the left acromioclavicular joint. *Chronic appearing posttraumatic deformity of the lateral segment of the left second rib. *No acute abnormalities identified. Critical Care Time Critical Care Time Total Critical Care Time: 35 Attestation: I have personally provided critical care time. Time includes review of lab data, radiology results, discussion with consultants, and monitoring for potential decompensation. Intervention performed as documented. Discharge Plan Discharge Clinical Impression: COVID-19 Patient Disposition: Home, Self-Care Instructions: COVID-19 (Coronavirus Disease 2019) (ED) Additional Instructions: Please follow-up with your primary care physician tomorrow. If you have any worsening or new symptoms, please return to the emergency room or call 911 Prescriptions: New benzonatate 100 mg capsule 100 mg PO TID PRN (Reason: cough) Qty: 14 0RF No Action (DME) lancets 28 gauge misc See Rx Instructions topical TID Qty: 100 3RF Rx Instructions: once a day (DME) diaper,brief,adult,disposable Misc See Rx Instructions .Route Qty: 64 5RF Rx Instructions: Use for stress incontinence (DME) lancets [OneTouch Delica Lancets] 30 gauge misc See Rx Instructions .Route Qty: 100 2RF Rx Instructions: Use to check blood sugar twice daily and when having symptoms of hypo/hyperglycemia (DME) blood-glucose meter [OneTouch Ultra2 Meter] Misc See Rx Instructions .Route Qty: 1 0RF Rx Instructions: Use to check blood sugar twice daily and when having symptoms of hypo/hyperglycemia (DME) pen needle, diabetic [BD Ultra-Fine Mini Pen Needle] 31 gauge x 3/16 needle See Rx Instructions .Route Qty: 100 2RF Rx Instructions: Use to administer insulin twice daily (DME) walker Misc See Rx Instructions .Route Qty: 1 0RF Rx Instructions: Wheeled walker with seat and brakes (DME) Shower Chair Misc See Rx Instructions .Route Qty: 1 0RF Rx Instructions: Shower chair with back and arm rests (DME) diaper,brief,adult,disposable Misc See Rx Instructions .Route Qty: 200 5RF Rx Instructions: Size medium pull up briefs atorvastatin 80 mg tablet 80 mg PO DAILY 90 Days Qty: 90 0RF (DME) FreeStyle Lite Strips Strip See Rx Instructions .Route Qty: 100 6RF Rx Instructions: Use to check blood sugar 3 times a day as needed lisinopril 5 mg tablet 10 mg PO DAILY Qty: 90 2RF insulin aspart U-100 [Novolog FlexPen U-100 Insulin] 100 unit/mL (3 mL) insulin pen See Protocol subcut TID Qty: 30 5RF Protocol: Insulin Correction Scale Less than or equal to 110 ---- Give (units): 0 111 to 150 Give (units): 0 151 to 200 Give (units): 2 201 to 250 Give (units): 6 251 to 300 Give (units): 8 301 to 350 Give (units): 10 Greater than 350 Give (units): 12 Call MD if Blood Glucose > : 350 Rx Instructions: Up to 10 units before each meal according to sliding scale Trulicity 1.5 mg/0.5 mL pen injector 1.5 mg subcut QWEEK 30 Days Qty: 2.5 4RF montelukast 10 mg tablet 10 mg PO DAILY Qty: 90 1RF gabapentin 300 mg capsule 300 mg PO ONCE Qty: 90 0RF (DME) OneTouch Ultra Test Strip See Rx Instructions .Route Qty: 100 2RF Rx Instructions: Use to check blood sugar 3 times a day as needed albuterol sulfate 2.5 mg /3 mL (0.083 %) solution for nebulization 2.5 mg inhalation Q4-6H PRN (Reason: shortness of breath or wheezing) Qty: 75 0RF (DME) AeroEclipse II Nebulizer Misc See Rx Instructions .ROUTE .MEDSUPPLY Qty: 1 0RF Rx Instructions: As directed hydroxyzine pamoate 25 mg capsule 25 mg PO DAILY trazodone 100 mg tablet 200 mg PO BEDTIME aspirin 81 mg Tablet,Chewable 81 mg PO DAILY cholecalciferol (vitamin D3) 25 mcg (1,000 unit) Capsule 25 mcg PO DAILY citalopram 10 mg tablet 10 mg PO DAILY albuterol sulfate [ProAir HFA] 90 mcg/actuation HFA aerosol inhaler 2 puff inhalation Q4H PRN (Reason: shortness of breath or wheezing) ropinirole 2 mg tablet 2 mg PO BID gabapentin 300 mg capsule 900 mg PO BEDTIME (DME) pen needle, diabetic 31 gauge x 3/16 needle See Rx Instructions subcut TID Qty: 1200 1RF Rx Instructions: 4x a day Levemir FlexPen 100 unit/mL (3 mL) insulin pen See Rx Instructions subcut BID 90 Days Qty: 40.5 3RF Rx Instructions: 15 u in am, and 30 u at bed time bupropion HCl 150 mg tablet extended release 24 hr 150 mg PO DAILY (DME) oxygen-air delivery systems Device See Rx Instructions .ROUTE .MEDSUPPLY Qty: 1 Rx Instructions: As directed Print Language: Arabic
[2024-03-06 04:56] VITALS: PULSE 87; RESP 16; O2SAT 96
[2024-03-06 05:12] LABS: Basophils Absolute Auto 0.1 X10*3/uL (0.0-0.2); Basophils Percent Auto 0.4 % (0-2); Eosinophils Absolute Auto 0.4 X10*3/uL (0.0-0.4); Eosinophils Percent Auto 2.8 % (0-4); Hematocrit 33.2 % (37.0-47.0); Hemoglobin 10.5 g/dl (12.0-16.0); Imm Gran Abs Auto 0.07 X10*3/uL (0.00-0.03); Imm Gran Pct Auto 0.5 % (0.0-0.4); Lymphocytes Absolute Auto 2.1 X10*3/uL (1.2-4.9); Lymphocytes Percent Auto 16.1 % (20-40); MANUAL DIFF FLAG NO; Mean Corpuscular HGB Conc 31.6 g/dl (31.0-35.0); Mean Corpuscular Hemoglobin 29.2 pg (27.0-33.0); Mean Corpuscular Volume 92.2 fL (80.0-98.0); Mean Platelet Volume 11.9 fL (9.4-12.3); Monocytes Absolute Auto 0.8 X10*3/uL (0.1-1.2); Neutrophils Absolute Auto 9.7 x10*3/uL (2.0-8.3); Neutrophils Percent Auto 74.2 % (45-73); Platelet Count 224 X10*3/uL (160-400); White Blood Count 13.1 X10*3/uL (4.8-10.8)
[2024-03-06] MEDS: 0.9 % Sodium Chloride 1,000 ML 999 ML IVCONT (05:16)
[2024-03-06] MEDS: ondansetron HCL 4 MG/2 ML VIAL IVPUSH (05:16)
[2024-03-06] MEDS: methylPREDNISolone Sod Succ 125 MG/2 ML VIAL IVPUSH (05:16)
[2024-03-06] MEDS: cefTRIAXone sodium 1 GM in 0.9 % Sodium Chloride 50 ML IV (05:24)
[2024-03-06 05:33] LABS: Lactic Acid 1.3 mmol/L (0.5-2.0); Prothrombin Time 11.7 SEC (11.1-13.3)
[2024-03-06 05:38] LABS: Alanine Aminotransferase 14 U/L (0-31); Albumin Level 3.5 g/dL (3.5-5.0); Alkaline Phosphatase 38 U/L (39-117); Anion Gap 15 (12-20); Aspartate Amino Transferase 15 U/L (5-31); Bilirubin Direct 0.1 mg/dL (0.0-0.5); Bilirubin Total 0.3 mg/dL (0.0-1.0); Blood Urea Nitrogen 28 mg/dL (9-16); Calcium 9.4 mg/dL (8.4-10.2); Carbon Dioxide 29 mmol/L (22-29); Chloride 102 mmol/L (96-108); Creatinine Clr Calc Pharmacy 31.9; Estimated Glomerular Filt Rate 30; Glucose Random 137 mg/dL (60-115); Magnesium 1.9 mg/dL (1.6-2.6); Potassium 4.8 mmol/L (3.3-5.1); Sodium 141 mmol/L (135-145); Total Protein 6.3 g/dL (6.5-8.0); Troponin-I High Sensitivity < 2.7 ng/L (<3.5-17.0)
[2024-03-06 05:48] LABS: B Type Natriuretic Peptide < 10 pg/mL (<100)
[2024-03-06] MEDS: Azithromycin 500 MG in 0.9 % Sodium Chloride 250 ML 125 MG IV (05:49)
[2024-03-06 06:05] LABS: Influenza A PCR NEGATIVE (Negative); Influenza B PCR NEGATIVE (Negative); Resp Syncy Virus RNA Qual PCR NEGATIVE (Negative); SARS COV2 PCR INHOUSE POSITIVE (Negative)
[2024-03-06] MEDS: Benzonatate 100 MG CAPSULE PO (07:44)
[2024-03-06 07:48] VITALS: BP 110/51; PULSE 88; RESP 11; TEMP 36.6; O2SAT 98
--- NOTE | 2024-03-06 07:49 | PC.NURSE ---
Care of Pt assumed at chnage of shift. Pt is berseved resting on stretcher with NAD playing games on her phone. VSS, afebrile and A&OX# Breaths are slow even and unlabored; O2 @2L intermittent cough noted. Pt medicated per SEP. Will ambulate when abx finished.
--- NOTE | 2024-03-06 08:27 | PC.NURSE ---
Ambulation trial prior to d/c. Pt able to transfer from lying to sitting to standing with 2L O2 and stable O2 sat. Pt able to ambulate without respiratory distress and/or decrease in O2 sat. Cough present however cough has been baseline for Pt given Dx.
[2024-03-06 08:30] VITALS: BP 110/51; PULSE 88; RESP 18; TEMP 36.6; O2SAT 98
== END 2024-03-06 08:32 | disposition home or self-care (01) ==
PROVIDERS: Emergency Provider Emergency Medicine; PCP Internal Medicine
DX: U07.1 COVID-19 (principal); R06.00 Dyspnea, unspecified; R05.9 Cough, unspecified; R06.02 Shortness of breath; Z79.899 Other long term (current) drug therapy
CPT/HCPCS: 0241U; 36415; 71045; 80048; 80076; 83605; 83735; 83880; 84484; 85025; 85610; 87040; 93005; 94640; 96361; 96365; 96366; 96375; 99284; 99285; J0456; J0696; J2405; J2919

== ENCOUNTER 2024-03-11 08:30 | Outpatient (REF) | payer MEDICARE, SELFPAY ==
[2024-03-11 13:37] LABS: Appearance Urine Clear; Color Urine Yellow; Glucose Urine UA Negative (Negative); Leukocyte Esterase Urine Negative (Negative); Nitrite Urine Negative (Negative); PH 5.5 (5.0-9.0); Urine Blood Negative (Negative); Urine Ketones Negative (Negative); Urine Protein Trace mg/dL (Neg-Trace)
[2024-03-11 14:06] LABS: Creatinine Urine 178.86 mg/dL; Total Protein Urine Random 10 mg/dL (<12)
== END 2024-03-11 08:31 | disposition home or self-care (01) ==
LOC: HO.HMGCLNP 08:30
PROVIDERS: Visit Provider Internal Medicine Hypertension Specialist
DX: N18.32 Chronic kidney disease, stage 3b (principal); N39.0 Urinary tract infection, site not specified
CPT/HCPCS: 81003; 82570; 84156; 87086

== ENCOUNTER 2024-03-21 13:10 | Outpatient (AMB) | payer OTHER, SELFPAY ==
--- NOTE | 2024-03-21 13:12 | MHC.OFFVIS ---
Vital Signs 03/21/24 13:13 Height 5 ft Weight 218 lb BMI 42.6 BP 124/62 Blood Pressure Location Lt brachial Position Sitting Pulse 91 Pulse Source Pulse Oximeter Pulse Oximetry (%) 93 Oxygen Delivery Method Room Air Intake Visit Reasons: copd Intake Note: pt is here for follow up and states she is doing okay and using oxygen at night and with exertion Motor Vehicle Emissions Inspector Required: No Allergies adhesive tape [ADHESIVE TAPE] Allergy (Intermediate, Verified 03/21/24 13:39) RASH trimethobenzamide [From TIGAN] Allergy (Mild, Verified 03/21/24 13:39) NAUSEA NSAIDS (Non-Steroidal Anti-Inflamma Adverse Reaction (Mild, Verified 03/21/24 13:39) Nephropathy environmental Allergy (Intermediate, Uncoded 03/21/24 13:39) Nasal congestion Medication List - Last Reconciled 03/21/24 by Hong Frederick MD albuterol sulfate 90 mcg/actuation (ProAir HFA) 2 puffs inhalation Q4H PRN albuterol sulfate 2.5 mg (3 mL) inhalation Q4-6H PRN aspirin 81 mg PO DAILY atorvastatin 80 mg PO DAILY 90 days benzonatate 100 mg PO TID PRN blood sugar diagnostic (Enteyeuch Ultra Test strips) Use to check blood sugar 3 times a day as needed blood sugar diagnostic (FreeStyle Lite Strips) Use to check blood sugar 3 times a day as needed blood-glucose meter (Nanali Ultra2 Meter) Use to check blood sugar twice daily and when having symptoms of hypo/hyperglycemia bupropion HCl XL 150 mg PO DAILY cholecalciferol (vitamin D3) 25 mcg PO DAILY citalopram 10 mg PO DAILY diaper,brief,adult,disposable Size medium pull up briefs diaper,brief,adult,disposable Use for stress incontinence dulaglutide (Trulicity) 1.5 mg (0.5 mL) subcut QWEEK 30 days gabapentin 300 mg PO ONCE gabapentin 900 mg PO BEDTIME hydroxyzine pamoate 25 mg PO DAILY insulin aspart U-100 (Novolog FlexPen U-100 Insulin aspart) See Protocol sliding scale doses subcut TID insulin detemir U-100 (Levemir FlexPen) 15 u in am, and 30 u at bed time 90 days lancets once a day lancets (Nanali Delica Lancets) Use to check blood sugar twice daily and when having symptoms of hypo/hyperglycemia lisinopril 10 mg (2 x 5 mg) PO DAILY montelukast 10 mg PO DAILY nebulizers (AeroEclipse II Nebulizer) As directed oxygen-air delivery systems As directed pen needle, diabetic (BD Ultra-Fine Mini Pen Needle) Use to administer insulin twice daily pen needle, diabetic 4x a day ropinirole 2 mg PO BID Shower Chair Shower chair with back and arm rests trazodone 200 mg PO BEDTIME walker Wheeled walker with seat and brakes HPI HPI copd: Details: DESMOND, 74 YEARS OLD FEMALE IS HERE FOR , POST EMERGENCY ROOM FOLLOW-UP. WAS SEEN IN THE EMERGENCY ROOM ON 03/06 WITH SYMPTOMS OF ACUTE BRONCHITIS. TESTED POSITIVE FOR COVID-19 INFECTION . TREATED SYMPTOMATICALLY AND SHE HAS IMPROVED. SHE STILL HAS SOME. RESIDUAL COUGH OFF AND ON SHE GETS SHORT OF BREATH IF SHE TRIES TO GET OUT OF HER WHEELCHAIR. SHE DOES USE O2 AT NIGHT AND P.R.N. DURING THE DAYTIME. [facility] Medical History (Updated 03/21/24 @ 13:46 by Hong Frederick MD) Exercise hypoxemia Recurrent UTI COPD (chronic obstructive pulmonary disease) Uncontrolled diabetes mellitus Depression, major, recurrent Dysuria Kidney stone on left side Diabetes 1.5, managed as type 1 COPD (chronic obstructive pulmonary disease) Respiratory failure with hypoxia Urinary tract infection Hypoxemia Morbid obesity CKD (chronic kidney disease) Anemia COPD exacerbation Allergic rhinitis ALDO (obstructive sleep apnea) Obesity (BMI 30-39.9) Constipation due to opioid therapy Osteoarthritis of left knee Hx SBO Hyperlipidemia CPAP (continuous positive airway pressure) dependence History of adrenal adenoma Osteochondroma of left femur Arthritis Diabetes Elevated cholesterol History of restless legs syndrome History of diverticulitis GERD (gastroesophageal reflux disease) Surgical History H/O excision of mass History of oophorectomy History of cholecystectomy History of appendectomy History of arthroscopy of left knee History of partial colectomy Hx of cataract extraction H/O exploratory laparotomy H/O colonoscopy History of surgery History of hysterectomy Family History Father HTN (hypertension) Diabetes mellitus Mother HTN (hypertension) Liver cancer Social History 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: Other 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 Other:: ex- has been staying over Housing: House Are you a primary critical care unit nurse to a significant other at home: No Do you presently have visiting nurse or other home services: Yes Unable to assess alcohol history related to: Unknown Alcohol intake: never Comment: PT SLEEPING Patient Tobacco Use Status: Never used Tobacco e-Cigarette/Vaping Use: Never Used Second Hand Smoke Exposure: No Advance Directives Date on File: 10/19/23 service: No Current occupational status: retired Cognitive needs: No Hearing needs: No Vision needs: No Female Reproductive History Menstrual Age of Menarche: 13 Review of Systems Const All systems reviewed & are unremarkable except as noted in HPI and below Eyes Reports no additional complaints ENT Reports nasal congestion (Intermittent) Card Denies chest pain, Denies irregular heart rhythm, Reports leg edema and Reports dyspnea Resp Reports as per HPI and Reports dyspnea GI Reports no additional complaints Reports no additional complaints Musc Reports abnormal gait (Impaired gait due to weakness of lower extremities, has to use a walker), Reports back pain and Reports limited range of motion Skin/Breast Reports system reviewed and no additional complaints, except as documented Neuro Reports abnormal gait (Impaired gait due to weakness of lower extremities, has to use a walker) Endo Reports other (Being treated for diabetes mellitus with diabetic neuropathy) Physical Exam Vital Signs: Last Vital Signs Pulse 91 03/21/24 13:13 BP 124/62 03/21/24 13:13 Pulse Ox 93 03/21/24 13:13 Oxygen Delivery Method Room Air 03/21/24 13:13 BMI result Body Mass Index 42.6 Const General: comfortable (But very weak), no acute distress, alert and awake Orientation/consciousness: patient oriented x3 HEENT Head: Yes normal to inspection General nose exam: No nasal polyps present, No nasal discharge present and Other nasal findings present (Mild nasal congestion) Face and sinus: Yes sinuses nontender Mouth: oropharynx normal Throat: Yes posterior oropharynx normal Eyes General: appearance normal, both eyes and all related structures Neck Neck: Yes normal visual inspection, Yes no lymphadenopathy, Yes trachea midline and Yes no JVD Thyroid: Thyroid normal Chest Chest palpation & inspection: normal inspection of the chest, normal palpation of entire chest wall and no tenderness Resp Other: Percussion note is resonant, breath sounds are very decreased over the basilar areas. No audible wheezes rhonchi or creps. Cardio Palpation: normal PMI Rate: regular rate Rhythm: regular rhythm Heart sounds: no gallops and no murmurs GI Palpation (GI): Soft to palpation, nontender, No hepatosplenomegaly present, no masses and Other GI palpation findings present (Abdomen is obese and protuberant) Auscultation: normal bowel sounds Back/Spine/Pelvis Thoracic/Lumbar Spine: thoracic and lumbar spine normal to inspection and thoraco-lumbar ROM limited Skin General skin exam: no rashes or lesions noted Neuro General: patient oriented x3 and no focal motor deficits Cranial nerves: Yes CN's II-XII intact bilaterally Extrem General: Yes normal to inspection, Yes no calf tenderness, Yes edema (ONLY MINIMAL AT THIS TIME.), Yes venous stasis dermatitis and Yes other (HAS THE A SMALL CONTUSION OF THE RIGHT FOREFOOT, WITH BLUISH DISCOLORATION ) Psych Appearance: grossly normal Speech and movement: Normal speech and movement present Office Procedures 6 Minute Walk Time:: 13:25 SPO2 % at rest: 93 Pulse at rest: 88 SPO2 % during excercise: 87 Pulse during excercise: 119 SPO2 % after excercise: 94 Pulse after excercise: 100 Distance in yards walked: 35 Pastora Score: 8 Performance Observations:: Patient walked on level ground using a walker. Patient tires quickly and gets short of breath with wheezing. Stopped to rest after approx 20 yards with O2 saturation down between 89 and 91 with pulse rate approx 115. Continued walk and after only 10 yards O2 saturation down to 87% with pulse of 119. Rested with O2 applied at 2L via nasal cannula with saturation return to 93% and pulse rate to 100. Patient reports this happens any time she walks any distance. Patient would benefit from supplemental oxygen. [address] - 6 Minute Walk Assessment & Plan Assessment & Plan (1) Obesity (BMI 30-39.9): Comment: She is morbidly obese, current BMI 42.6, has lost 5 lb of weight recently and is happy about that. Code(s): E66.9 - Obesity, unspecified Category: Medical Plan: IS THE IMPORTANT FOR HER TO LOSE SOME WEIGHT. IT IS DIFFICULT TO LOSE WEIGHT IN HER CASE BECAUSE OF IMPAIRED LOCOMOTION. STILL TRYING TO WATCH HER DIET AND HAS LOST A FEW LB OF WEIGHT. ENCOURAGED TO KEEP ON WATCHING THE DIET. (2) ALDO (obstructive sleep apnea): Comment: Patient does have obstructive sleep apnea as expected, But not able to use the CPAP She also has associated nocturnal hypoxemia. Code(s): G47.33 - Obstructive sleep apnea (adult) (pediatric) Category: Medical Plan: USE O2 2 L/MINUTE AT NIGHT (3) Restrictive airway disease: Comment: Patient has restrictive lung disorder related to obesity. Code(s): J98.4 - Other disorders of lung Category: Medical Plan: ADVISED TO DO DEEP BREATHING EXERCISES 3 TIMES A DAY WITH INCENTIVE SPIROMETRY DEVICE. (4) Nocturnal hypoxemia: Comment: SHE DOES HAVE NOCTURNAL HYPOXEMIA PART OF HER OBSTRUCTIVE SLEEP APNEA. ALSO SHE DESATURATES QUICKLY ON TRYING TO WALK AROUND. CONFIRMED BY 6 MINUTES WALK TODAY. Code(s): G47.34 - Idiopathic sleep related nonobstructive alveolar hypoventilation Category: Medical Plan: USE O2 2 L/MINUTE AT NIGHT. USE O2 2 L/MINUTE P.R.N. DURING THE DAYTIME. SHOULD HAVE PORTABLE OXYGEN AND USE 2 L/MINUTE WHEN GOING OUTDOORS. (5) Exercise hypoxemia: Comment: 6 MINUTES WALK CONFIRMS THAT SHE DESATURATES ON ANY EXERTION. Code(s): R09.02 - Hypoxemia Category: Medical Plan: SHOULD USE O2 WITH PORTABLE UNIT AT 2 L/MINUTE Orders: Orders AMB 6 minute walk Today R06.02 - Shortness of breath Coding Level of Care Code Est Pt Level 4 (93123) Diagnoses Obesity (BMI 30-39.9) E66.9 ALDO (obstructive sleep apnea) G47.33 Restrictive airway disease J98.4 Nocturnal hypoxemia G47.34 Exercise hypoxemia R09.02 CPT Codes Coding ([id number])
[2024-03-21 13:13] VITALS: BP 124/62; PULSE 91; O2SAT 93; BMI 42.6
[2024-03-21 13:44] VITALS: PULSE 88; O2SAT 93
== END 2024-03-21 14:01 | disposition home or self-care (01) ==
PROVIDERS: PCP Internal Medicine; Visit Provider Internal Medicine
DX: E66.9 Obesity, unspecified (principal); G47.33 Obstructive sleep apnea (adult) (pediatric); J98.4 Other disorders of lung; G47.34 Idiopathic sleep related nonobstructive alveolar hypoventilation; R09.02 Hypoxemia
CPT/HCPCS: 94618; 99214

== ENCOUNTER → 2024-03-21 13:10 | Outpatient (BNVA) | payer OTHER, SELFPAY | PROVIDERS: PCP Internal Medicine; Visit Provider Internal Medicine | DX: J98.4 Other disorders of lung (principal); G47.33 Obstructive sleep apnea (adult) (pediatric); G47.34 Idiopathic sleep related nonobstructive alveolar hypoventilation; R09.02 Hypoxemia; E66.9 Obesity, unspecified; Z68.41 Body mass index [BMI] 40.0-44.9, adult | CPT/HCPCS: 94618; 99212 ==

== ENCOUNTER 2024-04-04 20:13 | Emergency (ER) | payer OTHER, SELFPAY ==
--- NOTE | ~2024-04-04 | CT_ITS ---
EXAMINATION: CT ABDOMEN AND PELVIS WITHOUT CONTRAST CLINICAL INFORMATION: Abdominal pain. COMPARISON: November 29, 2023 TECHNIQUE: Multidetector volumetric imaging was performed from the superior aspect of the liver through the pubic symphysis. Sagittal and coronal reformatted images were obtained on the technologist's workstation. This CT examination was performed using dose optimization techniques as appropriate, variously including the following: *Automated exposure control *Adjustment of mA and/or kV according to patient size (this includes techniques or standardized protocols for targeted exams where dose is matched to indication/reason for exam; i.e. extremities or head) *Use of iterative reconstruction technique DLP: 1016 mGy-cm FINDINGS: LUNG BASES: There is scarring at the lung bases. LIVER, GALLBLADDER, AND BILIARY TREE: The liver is normal in size, shape, and attenuation. No focal hepatic lesion or biliary ductal dilatation is present. The gallbladder is not seen. PANCREAS: Unremarkable. SPLEEN: Unremarkable. ADRENAL GLANDS: Unremarkable. KIDNEYS AND URETERS: The kidneys are normal in size, shape, and attenuation. There is a 5 mm nonobstructing calculus lower pole left kidney. BLADDER: Unremarkable. GASTROINTESTINAL TRACT: There is diffuse diverticulosis without diverticulitis. The appendix is not seen. ABDOMINAL WALL: No significant hernia is appreciated. LYMPH NODES: Normal. VASCULAR: Unremarkable. PELVIC VISCERA: There are surgical clips in the pelvis. OSSEOUS STRUCTURES: There is diffuse thoracolumbar degenerative change most pronounced at L5-S1. CT/CT abdomen pelvis wo IV con IMPRESSION: Diverticulosis without evidence of diverticulitis. Nonobstructing left renal calculus. Fleischner guidelines were followed. Electronically signed by: Santiago Nieves MD 04/05/2024 12:54 AM EDT
--- NOTE | 2024-04-04 20:16 | ECG_ITS ---
Test Reason : UROGENITAL FEMALE Blood Pressure : / mmHG Vent. Rate : 088 BPM Atrial Rate : 088 BPM P-R Int : 152 ms QRS Dur : 086 ms QT Int : 352 ms P-R-T Axes : 058 019 038 degrees QTc Int : 425 ms Normal sinus rhythm Nonspecific ST abnormality Abnormal ECG When compared with ECG of 06-MAR-2024 05:05, Nonspecific ST abnormality is now Present Referred By: Shima Rai Electronically Signed By:ANNABEL YEBOAH
[2024-04-04 20:22] VITALS: BP 114/70; PULSE 88; O2SAT 97
[2024-04-04 20:24] VITALS: BP 102/34; PULSE 87; RESP 20; TEMP 36.4; O2SAT 98; BMI 40.0
--- NOTE | 2024-04-04 20:38 | ED_ITS ---
HPI - Female Genitourinary General Chief complaint: Urogenital-Female Stated complaint: bilat flank Lback pain, - uti, -stones, nausea Time Seen by Provider: 04/04/24 20:27 Source: patient and old records reviewed Mode of arrival: EMS Limitations: no limitations History of Present Illness ED Provider: GRUPO URIBE Narrative: 74 yo female with PMH of GERD, HLD, anxiety, osteoarthritis, DM, obesity, ALDO, UTI, CKD, respiratory failure with hypoxia on 2L NC, here with c/o yesterday severe flank pain and abdominal pain that worsened with urination yesterday. No fevers/chills. Mild nausea. Normal soft BM and flatus today. She notes she tried to go to [facility] yesterday but the wait was too long. She states she still has the pain. It does not feel like a SBO. She is urinating and doesn't notice much pain. MD elicited complaint: back pain and flank pain Pertinent past history: recurrent UTIs Onset (ago): day(s) (1) Location of symptoms: pelvis, low back and flank Severity: moderate Quality of pain: dull and aching Consistency: constant Exacerbating factors: urination Relieving factors: none Associated symptoms: loss of appetite and nausea Related Data Home Medications ?Medication ?Instructions ?Recorded ?Confirmed bupropion HCl 150 mg 24 hr tablet, 150 mg PO DAILY 04/25/20 03/21/24 extended release oxygen-air delivery systems ##1 04/25/20 03/21/24 aspirin 81 mg chewable tablet 81 mg PO DAILY 10/01/21 03/21/24 trazodone 100 mg tablet 200 mg PO BEDTIME 10/01/21 03/21/24 cholecalciferol (vitamin D3) 25 25 mcg PO DAILY 01/04/22 03/21/24 mcg (1,000 unit) capsule hydroxyzine pamoate 25 mg capsule 25 mg PO DAILY 08/13/22 03/21/24 citalopram 10 mg tablet 10 mg PO DAILY 06/06/23 03/21/24 albuterol sulfate 90 mcg/actuation 2 puff inhalation Q4H PRN 09/02/23 03/21/24 aerosol inhaler (ProAir HFA) shortness of breath or wheezing ropinirole 2 mg tablet 2 mg PO BID 09/02/23 03/21/24 gabapentin 300 mg capsule 900 mg PO BEDTIME 10/27/23 03/21/24 Previous Rx's ?Medication ?Instructions ?Recorded nebulizers (AeroEclipse II #1 ea 02/05/21 Nebulizer) lancets 28 gauge #100 ea 06/24/21 diaper,brief,adult,disposable #64 ea 05/06/22 lancets 30 gauge (OneTouch Delica #100 ea 09/16/22 Lancets) blood-glucose meter (OneTouch #1 ea 09/19/22 Ultra2 Meter) pen needle, diabetic 31 gauge x #100 ea 10/14/22/16 (BD Ultra-Fine Mini Pen Needle) walker #1 ea 05/20/23 Shower Chair #1 ea 05/27/23 diaper,brief,adult,disposable #200 ea 09/07/23 blood sugar diagnostic (FreeStyle #100 ea 11/13/23 Lite Strips) insulin detemir U-100 100 unit/mL See Rx Instructions subcut BID 90 12/24/23 (3 mL) subcutaneous pen (Levemir days #40.5 mL FlexPen) dulaglutide 1.5 mg/0.5 mL 1.5 mg (0.5 mL) subcut QWEEK 30 12/25/23 subcutaneous pen injector days #2.5 mL (Trulicity) insulin aspart U-100 100 unit/mL See Protocol subcut TID #30 mL 12/25/23 (3 mL) subcutaneous pen (Novolog FlexPen U-100 Insulin aspart) lisinopril 5 mg tablet 10 mg (2 x 5 mg) PO DAILY #90 tabs 12/25/23 montelukast 10 mg tablet 10 mg PO DAILY #90 tabs 12/25/23 gabapentin 300 mg capsule 300 mg PO ONCE #90 caps 01/25/24 blood sugar diagnostic (OneTouch #100 ea 02/10/24 Ultra Test strips) benzonatate 100 mg capsule 100 mg PO TID PRN cough #14 caps 03/06/24 atorvastatin 80 mg tablet 80 mg PO DAILY 90 days #90 tabs 03/12/24 albuterol sulfate 2.5 mg/3 mL 2.5 mg (3 mL) inhalation Q4-6H PRN 03/16/24 (0.083 %) solution for nebulization shortness of breath or wheezing #75 mL pen needle, diabetic 31 gauge x #400 ea 03/28/2409/25 Allergies Allergy/AdvReac Type Severity Reaction Status Date / Time adhesive tape [ADHESIVE TAPE] Allergy Intermediate RASH Verified 04/04/24 20:26 trimethobenzamide Allergy Mild NAUSEA Verified 04/04/24 20:26 [From TIGAN] NSAIDS (Non-Steroidal AdvReac Mild Nephropathy Verified 04/04/24 20:26 Anti-Inflamma environmental Allergy Intermediate Nasal Uncoded 04/04/24 20:26 congestion Review of Systems 2 Review of Systems: Constitutional : No Weight loss, No Fever, No Chills ENT/Mouth : No sore throat, No Rhinorrhea Eyes: No Swelling, No Redness Cardiovascular : No Chest Pain, No SOB, NoEdema Respiratory : No Cough, No Sputum, No Wheezing Gastrointestinal : Positive Nausea, no Vomiting, no Diarrhea, positive abdominal Pain, No Hematochezia, No Melena Genitourinary : No Dysuria, No Urinary Frequency, No Hematuria, No Urgency Musculoskeletal : No joint pain, No Myalgias, No Joint Swelling, pos back pain Skin : No Skin Lesions, No rash Neuro : No Weakness, No Numbness, No Dizziness, No Headache All other systems reviewed and are negative. [facility] Past Medical History Attestation statement: The following information was validated with the patient. Source: old records reviewed Medical History Exercise hypoxemia Recurrent UTI COPD (chronic obstructive pulmonary disease) Uncontrolled diabetes mellitus Depression, major, recurrent Dysuria Kidney stone on left side Diabetes 1.5, managed as type 1 COPD (chronic obstructive pulmonary disease) Respiratory failure with hypoxia Urinary tract infection Hypoxemia Morbid obesity CKD (chronic kidney disease) Anemia COPD exacerbation Allergic rhinitis ALDO (obstructive sleep apnea) Obesity (BMI 30-39.9) Constipation due to opioid therapy Osteoarthritis of left knee Hx SBO Hyperlipidemia CPAP (continuous positive airway pressure) dependence History of adrenal adenoma Osteochondroma of left femur Arthritis Diabetes Elevated cholesterol History of restless legs syndrome History of diverticulitis GERD (gastroesophageal reflux disease) Surgical History H/O excision of mass History of oophorectomy History of cholecystectomy History of appendectomy History of arthroscopy of left knee History of partial colectomy Hx of cataract extraction H/O exploratory laparotomy H/O colonoscopy History of surgery History of hysterectomy Family History Family History Father HTN (hypertension) Diabetes mellitus Mother HTN (hypertension) Liver cancer Social History Social History 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: Other 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 Other:: ex- has been staying over Housing: House Are you a primary career coach to a significant other at home: No Do you presently have visiting nurse or other home services: Yes Unable to assess alcohol history related to: Unknown Alcohol intake: never Comment: PT SLEEPING Patient Tobacco Use Status: Never used Tobacco Smoked in Last 30 Days: No e-Cigarette/Vaping Use: Never Used Second Hand Smoke Exposure: No Advance Directives: Yes Advance Directives on File: Yes Advance Directives Date on File: 10/19/23 Do you have a plan to hurt others: No Plan service: No Current occupational status: retired Cognitive needs: No Hearing needs: No Vision needs: No Physical Exam 2 Vital Signs: Vital Signs: Last Vital Signs Temp 97.7 F 04/05/24 00:03 Pulse 85 04/05/24 00:03 Resp 16 04/05/24 00:03 BP 120/57 L 04/05/24 00:03 Pulse Ox 98 04/04/24 20:24 O2 Del Method Nasal Cannula 04/04/24 20:24 Oxygen Flow Rate 98 04/04/24 20:24 BMI result Body Mass Index 40.0 Appearance: Alert. Oriented X3. No acute distress. Eyes: Pupils equal, round and reactive to light. ENT: Pharynx normal. Neck: Normal inspection. Neck supple. CVS: Normal heart rate and rhythm. Pulses normal. Respiratory: No respiratory distress. Breath sounds normal. Abdomen: Soft and not distended but obese, mild lower abdominal ttp no rebound Skin: Skin warm and dry. Normal skin color. Normal skin turgor. Extremities: No lower extremity edema. No calf ttp Neuro: Oriented X 3. No motor deficit. No sensory deficit. Course Course Course Narrative: with flank and back pain patient offered STR but she declines. Medications Administered Discontinued Medications Generic Name Dose Route Start Last Admin Trade Name Freq PRN Reason Stop Dose Admin Fentanyl 50 mcg 04/04/24 20:56 04/04/24 22:39 Fentanyl Citrate/Pf 100 Mcg/2 Ml Vial IVPUSH 04/04/24 20:57 50 mcg ONCE ONE Administration Protocol Levofloxacin 500 mg in 100 mls @ 100 mls/hr 04/04/24 20:40 04/04/24 22:33 Levaquin IV 04/04/24 21:39 100 mls/hr ONCE ONE Administration Sodium Chloride 1,000 mls @ 999 mls/hr 04/04/24 20:40 04/04/24 22:33 Ns IV 04/04/24 21:40 999 mls/hr .Q1H1M ONE Administration Medical Decision Making Medical Decision Making MDM Narrative: 74 yo female with PMH of GERD, HLD, anxiety, osteoarthritis, DM, obesity, ALDO, UTI, CKD, respiratory failure with hypoxia on 2L NC, here with c/o abdominal pain and pain with urination at this time will obtain labs, IVF x 1 bolus, UA and CT scan for renal colic. Pressures are slightly soft has hx of recurrent enterobacter UTI - empiric levofloxacin ordered. Differential Diagnosis Differential Diagnoses: The differential diagnosis associated with the presentation includes renal colic, constipation, SBO, UTI Admission/Observation Consideration of admission/observation: Escalation of care including admission/observation considered labs reassuring, CT scan no acute findings at this time no acute cause of her pain Lab Data [facility] Lab Attestation statement: I reviewed the patient's lab results. residual positive PCR doubt active infection last positive 03/06/24 labs at baseline Cr at baseline WBC count chronically 11 urine culture sent off doubt UTI 04/04/24 21:30 04/04/24 21:30 Labs: Lab Results 04/04/24 04/04/24 04/04/24 Range/Units 21:00 21:29 21:30 WBC 11.3 H (4.8-10.8) X10*3/uL RBC 3.86 L (4.20-5.50) X10*6/uL Hgb 11.1 L (12.0-16.0) g/dl Hct 35.0 L (37.0-47.0) % MCV 90.7 (80.0-98.0) fL MCH 28.8 (27.0-33.0) pg MCHC 31.7 (31.0-35.0) g/dl RDW 13.8 (11.0-16.0) % Plt Count 208 (160-400) X10*3/uL MPV 11.7 (9.4-12.3) fL Immature Gran % (Auto) 0.4 (0.0-0.4) % Neut % (Auto) 63.5 (45-73) % Lymph % (Auto) 23.7 (20-40) % [place] % (Auto) 8.0 (2-11) % Eos % (Auto) 4.0 (0-4) % Baso % (Auto) 0.4 (0-2) % Lymph # (Auto) 2.7 (1.2-4.9) X10*3/uL [place] # (Auto) 0.9 (0.1-1.2) X10*3/uL Eos # (Auto) 0.5 H (0.0-0.4) X10*3/uL Baso # (Auto) 0.1 (0.0-0.2) X10*3/uL Abs Immat Gran (auto) 0.04 H (0.00-0.03) X10*3/uL Absolute Neuts (auto) 7.2 (2.0-8.3) x10*3/uL Absolute Nucleated RBC 0.000 (0.0-0.012) X10*3/uL Nucleated RBC % (auto) 0.0 (0.0-0.2) /100WBC Sodium 140 (135-145) mmol/L Potassium 4.6 (3.3-5.1) mmol/L Chloride 105 (96-108) mmol/L Carbon Dioxide 26 (22-29) mmol/L Anion Gap 14 (12-20) BUN 28 H (9-16) mg/dL Creatinine 1.88 H (0.5-1.4) mg/dL Estim Creat Clear Calc 26.7 Estimated GFR 26 Random Glucose 116 H (60-115) mg/dL Lactic Acid 1.1 (0.5-2.0) mmol/L Calcium 8.9 (8.4-10.2) mg/dL Magnesium 2.0 (1.6-2.6) mg/dL Total Bilirubin 0.2 (0.0-1.0) mg/dL AST 15 (5-31) U/L ALT 11 (0-31) U/L Alkaline Phosphatase 38 L (39-117) U/L Total Protein 6.6 (6.5-8.0) g/dL Albumin 3.7 (3.5-5.0) g/dL Urine Color Yellow Urine Appearance Clear Urine pH 5.5 (5.0-9.0) Ur Specific [place] 1.010 (1.005-1.025) Urine Protein Negative (Neg-Trace) mg/dL Urine Glucose (UA) Negative (Negative) mg/dL Urine Ketones Negative (Negative) mg/dL Urine Blood Negative (Negative) Urine Nitrite Negative (Negative) Ur Leukocyte Esterase Trace H (Negative) Urine RBC 0-2 (0-2) /HPF Urine WBC 11-20 H (0-5) /HPF Ur Squamous Epith Cells 3-5 (0-2) /HPF Urine Bacteria None Seen (None Seen) Hyaline Casts 0-2 (0-2) /LPF Influenza Type A (PCR) NEGATIVE (Negative) Influenza Type B (PCR) NEGATIVE (Negative) RSV RNA Qual (PCR) NEGATIVE (Negative) SARS-CoV-2 RNA (RT-PCR) POSITIVE A (Negative) Independent Interpretation I performed an independent interpretation of an: EKG and CT Scan (no acute cause of apin) Interpretation: Rate: 88 Rhythm: NSR [place]: normal Normal P waves. Normal MELISSA. Normal QRS complex. ST T wave : inverted t waves V1, no EDWIN qTC: 425 prior studies: no acute ischemia The study has been interpreted contemporaneously by me. . Radiology Impression Discussion of test interpretation with radiology: I have reviewed the radiologist's reading. Independent Historian Clinical information obtained from an independent historian. History obtained from or confirmed by: EMS External Record Review External record reviewed: Inpatient record and Prior outpatient labs Discharge Plan Discharge Clinical Impression: Bilateral flank pain Patient Disposition: Home, Self-Care Instructions: Flank Pain (ED) Additional Instructions: labs at baseline, urine no obvious infection we are sending off culture - given dose of IV antibiotics CT scan shows no acute process no bowel obstruction, no infection, no stone in ureter to cause pain. return for any worsening symptoms or concerns. no work up today as cause of pain KIDNEYS AND URETERS: The kidneys are normal in size, shape, and attenuation. There is a 5 mm nonobstructing calculus lower pole left kidney. BLADDER: Unremarkable. GASTROINTESTINAL TRACT: There is diffuse diverticulosis without diverticulitis. The appendix is not seen. ABDOMINAL WALL: No significant hernia is appreciated. LYMPH NODES: Normal. VASCULAR: Unremarkable. PELVIC VISCERA: There are surgical clips in the pelvis. OSSEOUS STRUCTURES: There is diffuse thoracolumbar degenerative change most pronounced at L5-S1. CT/CT abdomen pelvis wo IV con IMPRESSION: Diverticulosis without evidence of diverticulitis. Nonobstructing left renal calculus. Prescriptions: No Action (DME) lancets 28 gauge misc See Rx Instructions topical TID Qty: 100 3RF Rx Instructions: once a day (DME) diaper,brief,adult,disposable Misc See Rx Instructions .Route Qty: 64 5RF Rx Instructions: Use for stress incontinence (DME) lancets [[employer] Discovery Delica Lancets] 30 gauge misc See Rx Instructions .Route Qty: 100 2RF Rx Instructions: Use to check blood sugar twice daily and when having symptoms of hypo/hyperglycemia (DME) blood-glucose meter [Wonderflow Ultra2 Meter] Misc See Rx Instructions .Route Qty: 1 0RF Rx Instructions: Use to check blood sugar twice daily and when having symptoms of hypo/hyperglycemia (DME) pen needle, diabetic [BD Ultra-Fine Mini Pen Needle] 31 gauge x 3/16 needle See Rx Instructions .Route Qty: 100 2RF Rx Instructions: Use to administer insulin twice daily (DME) walker Misc See Rx Instructions .Route Qty: 1 0RF Rx Instructions: Wheeled walker with seat and brakes (DME) Shower Chair Misc See Rx Instructions .Route Qty: 1 0RF Rx Instructions: Shower chair with back and arm rests (DME) diaper,brief,adult,disposable Misc See Rx Instructions .Route Qty: 200 5RF Rx Instructions: Size medium pull up briefs (DME) FreeStyle Lite Strips Strip See Rx Instructions .Route Qty: 100 6RF Rx Instructions: Use to check blood sugar 3 times a day as needed lisinopril 5 mg tablet 10 mg PO DAILY Qty: 90 2RF insulin aspart U-100 [Novolog FlexPen U-100 Insulin] 100 unit/mL (3 mL) insulin pen See Protocol subcut TID Qty: 30 5RF Protocol: Insulin Correction Scale Less than or equal to 110 ---- Give (units): 0 111 to 150 Give (units): 0 151 to 200 Give (units): 2 201 to 250 Give (units): 6 251 to 300 Give (units): 8 301 to 350 Give (units): 10 Greater than 350 Give (units): 12 Call MD if Blood Glucose > : 350 Rx Instructions: Up to 10 units before each meal according to sliding scale Trulicity 1.5 mg/0.5 mL pen injector 1.5 mg subcut QWEEK 30 Days Qty: 2.5 4RF montelukast 10 mg tablet 10 mg PO DAILY Qty: 90 1RF gabapentin 300 mg capsule 300 mg PO ONCE Qty: 90 0RF (DME) OneTouch Ultra Test Strip See Rx Instructions .Route Qty: 100 2RF Rx Instructions: Use to check blood sugar 3 times a day as needed atorvastatin 80 mg tablet 80 mg PO DAILY 90 Days Qty: 90 0RF albuterol sulfate 2.5 mg /3 mL (0.083 %) solution for nebulization 2.5 mg inhalation Q4-6H PRN (Reason: shortness of breath or wheezing) Qty: 75 0RF (DME) pen needle, diabetic 31 gauge x 3/16 needle See Rx Instructions subcut TID Qty: 400 1RF Rx Instructions: check blood sugar four times per a day (DME) AeroEclipse II Nebulizer Misc See Rx Instructions .ROUTE .MEDSUPPLY Qty: 1 0RF Rx Instructions: As directed hydroxyzine pamoate 25 mg capsule 25 mg PO DAILY trazodone 100 mg tablet 200 mg PO BEDTIME aspirin 81 mg Tablet,Chewable 81 mg PO DAILY cholecalciferol (vitamin D3) 25 mcg (1,000 unit) Capsule 25 mcg PO DAILY citalopram 10 mg tablet 10 mg PO DAILY albuterol sulfate [ProAir HFA] 90 mcg/actuation HFA aerosol inhaler 2 puff inhalation Q4H PRN (Reason: shortness of breath or wheezing) ropinirole 2 mg tablet 2 mg PO BID gabapentin 300 mg capsule 900 mg PO BEDTIME benzonatate 100 mg capsule 100 mg PO TID PRN (Reason: cough) Qty: 14 0RF Levemir FlexPen 100 unit/mL (3 mL) insulin pen See Rx Instructions subcut BID 90 Days Qty: 40.5 3RF Rx Instructions: 15 u in am, and 30 u at bed time bupropion HCl 150 mg tablet extended release 24 hr 150 mg PO DAILY (DME) oxygen-air delivery systems Device See Rx Instructions .ROUTE .MEDSUPPLY Qty: 1 Rx Instructions: As directed Print Language: Urdu
[2024-04-04 21:12] LABS: Appearance Urine Clear; Color Urine Yellow; Glucose Urine UA Negative (Negative); Leukocyte Esterase Urine Trace (Negative); Nitrite Urine Negative (Negative); PH 5.5 (5.0-9.0); UMIC TRIGGER UACC YES; Urine Blood Negative (Negative); Urine Ketones Negative (Negative); Urine Protein Negative (Neg-Trace)
--- NOTE | 2024-04-04 21:28 | PC.NURSE ---
labs and meds delayed d/t difficult vascular access, MATT Saleh to bedside for US guided IV placement.
[2024-04-04 21:36] LABS: MANUAL DIFF FLAG NO
[2024-04-04 21:38] LABS: Basophils Absolute Auto 0.1 X10*3/uL (0.0-0.2); Basophils Percent Auto 0.4 % (0-2); Eosinophils Absolute Auto 0.5 X10*3/uL (0.0-0.4); Hemoglobin 11.1 g/dl (12.0-16.0); Imm Gran Abs Auto 0.04 X10*3/uL (0.00-0.03); Imm Gran Pct Auto 0.4 % (0.0-0.4); Lymphocytes Absolute Auto 2.7 X10*3/uL (1.2-4.9); Lymphocytes Percent Auto 23.7 % (20-40); Mean Corpuscular HGB Conc 31.7 g/dl (31.0-35.0); Mean Corpuscular Hemoglobin 28.8 pg (27.0-33.0); Mean Corpuscular Volume 90.7 fL (80.0-98.0); Mean Platelet Volume 11.7 fL (9.4-12.3); Monocytes Absolute Auto 0.9 X10*3/uL (0.1-1.2); Neutrophils Absolute Auto 7.2 x10*3/uL (2.0-8.3); Neutrophils Percent Auto 63.5 % (45-73); Platelet Count 208 X10*3/uL (160-400); Red Blood Count 3.86 X10*6/uL (4.20-5.50); Red Cell Distribution Width 13.8 % (11.0-16.0); White Blood Count 11.3 X10*3/uL (4.8-10.8)
[2024-04-04 21:47] LABS: Lactic Acid 1.1 mmol/L (0.5-2.0)
[2024-04-04 21:47] LABS: Bacteria Urine None Seen (None Seen); Hyaline Casts Urine 0-2 /LPF (0-2); RBC Urine 0-2 /HPF (0-2); UACC Culture Trigger YES
[2024-04-04 21:51] LABS: Alanine Aminotransferase 11 U/L (0-31); Albumin Level 3.7 g/dL (3.5-5.0); Alkaline Phosphatase 38 U/L (39-117); Anion Gap 14 (12-20); Aspartate Amino Transferase 15 U/L (5-31); Bilirubin Total 0.2 mg/dL (0.0-1.0); Blood Urea Nitrogen 28 mg/dL (9-16); Calcium 8.9 mg/dL (8.4-10.2); Carbon Dioxide 26 mmol/L (22-29); Chloride 105 mmol/L (96-108); Creatinine Clr Calc Pharmacy 26.7; Estimated Glomerular Filt Rate 26; Glucose Random 116 mg/dL (60-115); Potassium 4.6 mmol/L (3.3-5.1); Sodium 140 mmol/L (135-145); Total Protein 6.6 g/dL (6.5-8.0)
[2024-04-04 22:22] LABS: Influenza A PCR NEGATIVE (Negative); Influenza B PCR NEGATIVE (Negative); Resp Syncy Virus RNA Qual PCR NEGATIVE (Negative); SARS COV2 PCR INHOUSE POSITIVE (Negative)
[2024-04-04] MEDS: 0.9 % Sodium Chloride 1,000 ML 999 ML IV (22:33)
[2024-04-04] MEDS: levoFLOXacin/D5W 500 MG/100 ML PIGGYBACK 100 MG IV (22:33)
[2024-04-04 22:39] VITALS: RESP 14
[2024-04-04] MEDS: fentaNYL citrate/PF 100 MCG/2 ML VIAL 50 MCG IVPUSH (22:39)
--- NOTE | 2024-04-04 23:05 | PC.NURSE ---
Addendum entered by Naheed Bourne LPN 04/04/24 23:06: call [facility]st within reach Original Note: pt medicated per MAR repositioned in bed fluids and levofloxacin infusing per order, report given to MATT Porras
[2024-04-05 00:03] VITALS: BP 120/57; PULSE 85; RESP 16; TEMP 36.5
[2024-04-05 01:55] VITALS: BP 120/57; PULSE 85; RESP 16; TEMP 36.5; O2SAT 98
[2024-04-05 03:07] VITALS: BP 129/73; PULSE 79; RESP 18; TEMP 36.9; O2SAT 96
== END 2024-04-05 03:10 | disposition home or self-care (01) ==
PROVIDERS: Physician Assistant Medical; Emergency Provider Emergency Medicine
DX: R10.9 Unspecified abdominal pain (principal); R30.9 Painful micturition, unspecified; E11.22 Type 2 diabetes mellitus with diabetic chronic kidney disease; N18.9 Chronic kidney disease, unspecified; Z79.899 Other long term (current) drug therapy; Z03.818 Encounter for observation for suspected exposure to other biological agents ruled out
CPT/HCPCS: 0241U; 36415; 74176; 80053; 81001; 83605; 83735; 85025; 87040; 87086; 93005; 96374; 96375; 99284; 99285; J1956; J3010

== ENCOUNTER 2024-06-29 13:57 | Outpatient (AMB) | payer OTHER, SELFPAY ==
[2024-06-29 14:20] VITALS: BP 112/60; PULSE 98; O2SAT 99; BMI 39.3
--- NOTE | 2024-06-29 14:20 | A.OFFVIS_ITS ---
Vital Signs 06/29/24 14:20 Height 5 ft Weight 201 lb BMI 39.3 BP 112/60 Blood Pressure Location Lt brachial Position Sitting Pulse 98 Pulse Source Pulse Oximeter Pulse Oximetry (%) 99 Oxygen Delivery Method Nasal Cannula Oxygen Flow Rate 2 Intake Visit Reasons: COPD Intake Note: pt is here post rehab for a sprained ankle, she states she states her breathing is not good, had an ER visit on Thursday at [facility], put on prednisone but had to stop due to elevated blood sugar. Psychotherapist Counselor Required: No Allergies adhesive tape [ADHESIVE TAPE] Allergy (Intermediate, Verified 06/29/24 14:45) RASH trimethobenzamide [From TIGAN] Allergy (Mild, Verified 06/29/24 14:45) NAUSEA NSAIDS (Non-Steroidal Anti-Inflamma Adverse Reaction (Mild, Verified 06/29/24 14:45) Nephropathy environmental Allergy (Intermediate, Uncoded 06/29/24 14:45) Nasal congestion Medication List - Last Reconciled 06/29/24 by Hong Frederick MD albuterol sulfate 90 mcg/actuation (ProAir HFA) 2 puffs inhalation Q4H PRN albuterol sulfate 2.5 mg (3 mL) inhalation Q4-6H PRN amlodipine 5 mg PO DAILY aspirin 81 mg PO DAILY atorvastatin 80 mg PO DAILY 90 days benzonatate 100 mg PO TID PRN blood sugar diagnostic (OneTouch Ultra Test strips) Use to check blood sugar 3 times a day as needed blood sugar diagnostic (FreeStyle Lite Strips) Use to check blood sugar 3 times a day as needed blood-glucose meter (OneTouch Ultra2 Meter) Use to check blood sugar twice daily and when having symptoms of hypo/hyperglycemia bupropion HCl XL 150 mg PO DAILY cholecalciferol (vitamin D3) 25 mcg PO DAILY citalopram 20 mg PO DAILY diaper,brief,adult,disposable Size medium pull up briefs diaper,brief,adult,disposable Use for stress incontinence dulaglutide (Trulicity) 1.5 mg (0.5 mL) subcut QWEEK 30 days gabapentin 900 mg PO BEDTIME gabapentin 300 mg PO ONCE hydroxyzine pamoate 25 mg PO DAILY insulin aspart U-100 (Novolog FlexPen U-100 Insulin aspart) See Protocol sliding scale doses subcut TID insulin glargine (Lantus Solostar U-100 Insulin) 15 units in am, 30 units at bedtime each day, subcutaneously; lancets once a day lancets Use to check blood sugar twice daily and when having symptoms of hypo/hyperglycemia lisinopril 10 mg (2 x 5 mg) PO DAILY montelukast 10 mg PO DAILY nebulizers (AeroEclipse II Nebulizer) As directed oxygen-air delivery systems As directed pen needle, diabetic (BD Ultra-Fine Mini Pen Needle) Use to administer insulin twice daily pen needle, diabetic check blood sugar four times per a day ropinirole 2 mg PO BID Shower Chair Shower chair with back and arm rests trazodone 200 mg PO BEDTIME walker Wheeled walker with seat and brakes HPI HPI COPD: Details: THIS 74 YEARS OLD FEMALE, CHRONICALLY SICK DUE TO ADVANCED CHRONIC OBSTRUCTIVE PULMONARY DISEASE AND MULTIPLE COMORBID CONDITIONS, HAS SPENT A FEW MONTHS IN THE REHAB FACILITY AFTER SHE FELL AND SPRAINED HER ANKLE. SHE WAS RECENTLY DISCHARGED FROM THE REHAB FACILITY. LAST WEEK ENDED UP IN THE EMERGENCY ROOM DUE TO INCREASED SHORTNESS OF BREATH. SHE WAS STARTED ON PREDNISONE BUT HER BLOOD SUGAR SHORT UP TO 500 MG SO SHE STOPPED TAKING PREDNISONE. SHE IS DOING BETTER THAN BEFORE BUT CONTINUES TO BE SHORT OF BREATH ON MINIMAL EFFORT. SHE HAS CHRONIC WEAKNESS OF THE LOWER EXTREMITIES AND CAN NOT WALK SO SHE HAS REMAINS IN THE WHEELCHAIR. SHE HAS NOCTURNAL HYPOXEMIA AND USES O2 2 L/MINUTE AT NIGHT. SHE USES EVEN DURING THE DAYTIME BECAUSE OF INCREASED SHORTNESS OF BREATH. [facility] Medical History Exercise hypoxemia Recurrent UTI COPD (chronic obstructive pulmonary disease) Uncontrolled diabetes mellitus Depression, major, recurrent Dysuria Kidney stone on left side Diabetes 1.5, managed as type 1 COPD (chronic obstructive pulmonary disease) Respiratory failure with hypoxia Urinary tract infection Hypoxemia Morbid obesity CKD (chronic kidney disease) Anemia COPD exacerbation Allergic rhinitis ALDO (obstructive sleep apnea) Obesity (BMI 30-39.9) Constipation due to opioid therapy Osteoarthritis of left knee Hx SBO Hyperlipidemia CPAP (continuous positive airway pressure) dependence History of adrenal adenoma Osteochondroma of left femur Arthritis Diabetes Elevated cholesterol History of restless legs syndrome History of diverticulitis GERD (gastroesophageal reflux disease) Surgical History H/O excision of mass History of oophorectomy History of cholecystectomy History of appendectomy History of arthroscopy of left knee History of partial colectomy Hx of cataract extraction H/O exploratory laparotomy H/O colonoscopy History of surgery History of hysterectomy Family History Father HTN (hypertension) Diabetes mellitus Mother HTN (hypertension) Liver cancer Social History 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: Other 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 Other:: ex- has been staying over Housing: House Are you a primary home care coordinator to a significant other at home: No Do you presently have visiting nurse or other home services: Yes Unable to assess alcohol history related to: Unknown Alcohol intake: never Comment: PT SLEEPING Patient Tobacco Use Status: Never used Tobacco e-Cigarette/Vaping Use: Never Used Second Hand Smoke Exposure: No Advance Directives Date on File: 10/19/23 service: No Current occupational status: retired Cognitive needs: No Hearing needs: No Vision needs: No Female Reproductive History Menstrual Age of Menarche: 13 Review of Systems Const All systems reviewed & are unremarkable except as noted in HPI and below Eyes Reports no additional complaints ENT Reports nasal congestion (Intermittent) Card Denies chest pain, Denies irregular heart rhythm, Reports leg edema and Reports dyspnea Resp Reports as per HPI and Reports dyspnea GI Reports no additional complaints Reports no additional complaints Musc Reports abnormal gait (Impaired gait due to weakness of lower extremities, has to use a walker), Reports back pain and Reports limited range of motion Skin/Breast Reports system reviewed and no additional complaints, except as documented Neuro Reports abnormal gait (Impaired gait due to weakness of lower extremities, has to use a walker) Endo Reports other (Being treated for diabetes mellitus with diabetic neuropathy) Physical Exam Vital Signs: Last Vital Signs Pulse 98 06/29/24 14:20 BP 112/60 06/29/24 14:20 Pulse Ox 99 06/29/24 14:20 Oxygen Delivery Method Nasal Cannula 06/29/24 14:20 Oxygen Flow Rate 2 06/29/24 14:20 BMI result Body Mass Index 39.3 Const General: comfortable (But very weak), no acute distress, alert and awake Orientation/consciousness: patient oriented x3 HEENT Head: Yes normal to inspection General nose exam: No nasal polyps present, No nasal discharge present and Other nasal findings present (Mild nasal congestion) Face and sinus: Yes sinuses nontender Mouth: oropharynx normal Throat: Yes posterior oropharynx normal Eyes General: appearance normal, both eyes and all related structures Neck Neck: Yes normal visual inspection, Yes no lymphadenopathy, Yes trachea midline and Yes no JVD Thyroid: Thyroid normal Chest Chest palpation & inspection: normal inspection of the chest, normal palpation of entire chest wall and no tenderness Resp Other: Percussion note is resonant, breath sounds are very decreased over the basilar areas. No audible wheezes rhonchi or creps. Cardio Palpation: normal PMI Rate: regular rate Rhythm: regular rhythm Heart sounds: no gallops and no murmurs GI Palpation (GI): Soft to palpation, nontender, No hepatosplenomegaly present, no masses and Other GI palpation findings present (Abdomen is obese and protuberant) Auscultation: normal bowel sounds Back/Spine/Pelvis Thoracic/Lumbar Spine: thoracic and lumbar spine normal to inspection and thoraco-lumbar ROM limited Skin General skin exam: no rashes or lesions noted Neuro General: patient oriented x3 and no focal motor deficits Cranial nerves: Yes CN's II-XII intact bilaterally Extrem General: Yes normal to inspection, Yes no calf tenderness, Yes edema (ONLY MINIMAL AT THIS TIME.), Yes venous stasis dermatitis and Yes other (HAS THE A SMALL CONTUSION OF THE RIGHT FOREFOOT, WITH BLUISH DISCOLORATION ) Psych Appearance: grossly normal Speech and movement: Normal speech and movement present Assessment & Plan Assessment & Plan (1) Respiratory failure with hypoxia: Comment: This patient definitely has nocturnal hypoxemia as well as Exercise induced Hypoxemia . Use of POC not effective as she is mouth breather Code(s): J96.91 - Respiratory failure, unspecified with hypoxia Category: Medical Plan: O2 2 L/MINUTE AT NIGHT FOR SLEEP. AND 2 L/MINUTE DURING THE DAYTIME P.R.N. IF O2 SAT BELOW 90% OR IF SHE EXPERIENCES ANY RESPIRATORY DISTRESS. (2) COPD (chronic obstructive pulmonary disease): Comment: DESMOND HAS LONGSTANDING HISTORY OF COPD, CURRENTLY STABLE WITH THE USE OF MEDS, RECENTLY HAD AN ANOTHER ACUTE EXACERBATION AND WAS TREATED WITH A SHORT COURSE OF PREDNISONE, WHICH DROVE HER BLOOD SUGAR TOO HIGH. AND SHE HAD TO STOP PREDNISONE. Code(s): J44.9 - Chronic obstructive pulmonary disease, unspecified Category: Medical Qualifiers: COPD type: emphysema Emphysema type: panlobular Qualified Code(s): J43.1 - Panlobular emphysema Plan: PATIENT DOES NEED INHALED STEROIDS. I THINK SHE WILL BENEFIT FROM THE USE OF BUDESONIDE 0.5 MG IN THE NEBULIZER B.I.D.. ALSO PRESCRIBED IPRATROPIUM-ALBUTEROL SOLUTION TO USE 1 WHILE IN THE NEBULIZER Q 6 HOURS WHILE AWAKE. MAY USE ALBUTEROL HFA 2 PUFFS Q 4-6 HOURS P.R.N. WHEN OUTDOORS. (3) Allergic rhinitis: Comment: Mild, and AND SEEMS TO BE FAIRLY WELL CONTROLLED AT THIS TIME. Code(s): J30.9 - Allergic rhinitis, unspecified Category: Medical Plan: USE FLONASE-52 SPRAY IN EACH NOSTRIL DAILY (4) Morbid obesity: Comment: PATIENT IS CHRONICALLY OVERWEIGHT BECAUSE SHE CAN NOT DO ANY PHYSICAL ACTIVITY Code(s): E66.01 - Morbid (severe) obesity due to excess calories Category: Medical Plan: DISCUSS WITH HER ABOUT BEING OVERWEIGHT BUT FROM PRACTICAL POINT OF VIEW THERE IS NOT MUCH WHICH CAN BE DONE ABOUT THAT AT THIS TIME. Medications: New budesonide 0.5 mg (2 mL) inhalation BID 30 days 120 mL 3RF SEVERE COPD ipratropium-albuterol 0.5 mg-3 mg(2.5 mg base)/3 mL 3 mL inhalation QID 30 days 320 mL 3RF SEVERE COPD Coding Level of Care Code Est Pt Level 4 (13942) Diagnoses Respiratory failure with hypoxia J96.91 Panlobular emphysema J43.1 COPD type: emphysema Emphysema type: panlobular Allergic rhinitis J30.9 Morbid obesity E66.01
== END 2024-06-29 14:55 | disposition home or self-care (01) ==
PROVIDERS: PCP Internal Medicine; Visit Provider Internal Medicine
DX: J96.91 Respiratory failure, unspecified with hypoxia (principal); J43.1 Panlobular emphysema; J30.9 Allergic rhinitis, unspecified; E66.01 Morbid (severe) obesity due to excess calories
CPT/HCPCS: 99214

== ENCOUNTER → 2024-06-29 13:57 | Outpatient (BNVA) | payer OTHER, SELFPAY | PROVIDERS: PCP Internal Medicine; Visit Provider Internal Medicine | DX: J96.91 Respiratory failure, unspecified with hypoxia (principal); J43.1 Panlobular emphysema; J30.9 Allergic rhinitis, unspecified; E66.01 Morbid (severe) obesity due to excess calories; Z68.39 Body mass index [BMI] 39.0-39.9, adult | CPT/HCPCS: 99212 ==

== ENCOUNTER 2024-07-26 08:17 | Outpatient (REF) | payer OTHER, SELFPAY ==
[2024-07-26 09:58] LABS: MANUAL DIFF FLAG NO
[2024-07-26 10:05] LABS: Basophils Percent Auto 0.3 % (0-2); Eosinophils Absolute Auto 0.4 X10*3/uL (0.0-0.4); Eosinophils Percent Auto 4.8 % (0-4); Hematocrit 40.8 % (37.0-47.0); Hemoglobin 12.7 g/dl (12.0-16.0); Imm Gran Abs Auto 0.03 X10*3/uL (0.00-0.03); Imm Gran Pct Auto 0.3 % (0.0-0.4); Lymphocytes Absolute Auto 2.9 X10*3/uL (1.2-4.9); Lymphocytes Percent Auto 32.7 % (20-40); Mean Corpuscular HGB Conc 31.1 g/dl (31.0-35.0); Mean Corpuscular Hemoglobin 27.7 pg (27.0-33.0); Mean Corpuscular Volume 88.9 fL (80.0-98.0); Mean Platelet Volume 11.7 fL (9.4-12.3); Monocytes Absolute Auto 0.5 X10*3/uL (0.1-1.2); Monocytes Percent Auto 5.7 % (2-11); Neutrophils Absolute Auto 4.9 x10*3/uL (2.0-8.3); Neutrophils Percent Auto 56.2 % (45-73); Platelet Count 255 X10*3/uL (160-400); Red Blood Count 4.59 X10*6/uL (4.20-5.50); Red Cell Distribution Width 14.3 % (11.0-16.0); White Blood Count 8.8 X10*3/uL (4.8-10.8)
[2024-07-26 10:12] LABS: Estimated Average Glucose 171 mg/dL; Hemoglobin A1C 196.7284 umol/L; Hemoglobin A1c % 7.6 % (<6.0); Total Hemoglobin (HGBA1C) 3297.2692 umol/L
[2024-07-26 10:54] LABS: Alanine Aminotransferase 18 U/L (0-31); Albumin Level 4.2 g/dL (3.5-5.0); Alkaline Phosphatase 43 U/L (39-117); Anion Gap 13 (12-20); Aspartate Amino Transferase 22 U/L (5-31); Bilirubin Total 0.3 mg/dL (0.0-1.0); Blood Urea Nitrogen 27 mg/dL (9-16); Calcium 9.5 mg/dL (8.4-10.2); Carbon Dioxide 29 mmol/L (22-29); Chloride 105 mmol/L (96-108); Estimated Glomerular Filt Rate 32; Glucose Random 81 mg/dL (60-115); Potassium 4.2 mmol/L (3.3-5.1); Sodium 143 mmol/L (135-145); Total Protein 7.4 g/dL (6.5-8.0)
[2024-07-27 20:18] LABS: LDL Cholesterol Direct 87 mg/dL (<100)
== END 2024-07-26 08:18 | disposition home or self-care (01) ==
LOC: HO.HMGCLDS 08:17
PROVIDERS: PCP Internal Medicine; Visit Provider Internal Medicine
DX: E11.22 Type 2 diabetes mellitus with diabetic chronic kidney disease (principal); N18.31 Chronic kidney disease, stage 3a; D63.1 Anemia in chronic kidney disease; E78.9 Disorder of lipoprotein metabolism, unspecified; E11.40 Type 2 diabetes mellitus with diabetic neuropathy, unspecified; K21.9 Gastro-esophageal reflux disease without esophagitis; G25.81 Restless legs syndrome; F41.1 Generalized anxiety disorder; N39.46 Mixed incontinence; J98.4 Other disorders of lung; J30.89 Other allergic rhinitis; R79.89 Other specified abnormal findings of blood chemistry; Z79.4 Long term (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 insulin; Z79.899 Other long term (current) drug therapy; Z91.09 Other allergy status, other than to drugs and biological substances; Z99.81 Dependence on supplemental oxygen
CPT/HCPCS: 36415; 80053; 83036; 83721; 85025; 96127; 99212

== ENCOUNTER 2024-07-26 08:17 | Outpatient (AMB) | payer OTHER, SELFPAY ==
[2024-07-26 08:18] VITALS: BP 110/62; PULSE 84; O2SAT 96; BMI 41.5
--- NOTE | 2024-07-26 08:18 | A.OFFPC_ITS ---
Vital Signs 07/26/24 08:18 Height 5 ft Weight 212 lb 6 oz BMI 41.5 BP 110/62 Blood Pressure Location Rt brachial Position Sitting Pulse 84 Pulse Source Pulse Oximeter Pulse Oximetry (%) 96 Oxygen Delivery Method Room Air Intake Visit Reasons: Medication review Allergies adhesive tape [ADHESIVE TAPE] Allergy (Intermediate, Verified 07/26/24 08:18) RASH trimethobenzamide [From TIGAN] Allergy (Mild, Verified 07/26/24 08:18) NAUSEA NSAIDS (Non-Steroidal Anti-Inflamma Adverse Reaction (Mild, Verified 07/26/24 08:18) Nephropathy environmental Allergy (Intermediate, Uncoded 06/29/24 14:45) Nasal congestion Medication List - Last Reconciled 07/26/24 by Shelbi Perez MD albuterol sulfate 90 mcg/actuation (ProAir HFA) 2 puffs inhalation Q4H PRN albuterol sulfate 2.5 mg (3 mL) inhalation Q4-6H PRN amlodipine 5 mg PO DAILY aspirin 81 mg PO DAILY atorvastatin 80 mg PO DAILY 90 days benzonatate 100 mg PO TID PRN blood sugar diagnostic (OneTouch Ultra Test strips) Use to check blood sugar 3 times a day as needed blood sugar diagnostic (FreeStyle Lite Strips) Use to check blood sugar 3 times a day as needed blood-glucose meter (OneTouch Ultra2 Meter) Use to check blood sugar twice daily and when having symptoms of hypo/hyperglycemia budesonide 0.5 mg (2 mL) inhalation BID 30 days bupropion HCl XL 150 mg PO DAILY cholecalciferol (vitamin D3) 25 mcg PO DAILY citalopram 20 mg PO DAILY diaper,brief,adult,disposable Size medium pull up briefs diaper,brief,adult,disposable Use for stress incontinence dulaglutide (Trulicity) 1.5 mg (0.5 mL) subcut QWEEK 30 days gabapentin 900 mg PO BEDTIME gabapentin 300 mg PO ONCE hydroxyzine pamoate 25 mg PO DAILY insulin aspart U-100 (Novolog FlexPen U-100 Insulin aspart) See Protocol sliding scale doses subcut TID insulin glargine (Lantus Solostar U-100 Insulin) 15 units in am, 30 units at bedtime each day, subcutaneously; ipratropium-albuterol 0.5 mg-3 mg(2.5 mg base)/3 mL 3 mL inhalation QID 30 days lancets once a day lancets Use to check blood sugar twice daily and when having symptoms of hypo/hyperglycemia lisinopril 10 mg (2 x 5 mg) PO DAILY montelukast 10 mg PO DAILY nebulizers (AeroEclipse II Nebulizer) As directed oxygen-air delivery systems As directed pen needle, diabetic (BD Ultra-Fine Mini Pen Needle) Use to administer insulin twice daily pen needle, diabetic check blood sugar four times per a day ropinirole 2 mg PO BID Shower Chair Shower chair with back and arm rests trazodone 200 mg PO BEDTIME walker Wheeled walker with seat and brakes Tobacco use date assessed: 07/26/24 Fall risk assessment: No Falls in past year Last assessed Fall Risk: 07/26/24 Dental Screening Dental Screen Date: 07/26/24 Did you have a dental visit in the last 12 months?: No Did you have a dental problem in the last 6 months where you did not have access to dental care?: No Was dental information given to patient?: Patient declined HPI Medication review HPI Details - The patient is a 74-year-old female pr esenting with Type 2 Diabetes Mellitus management concerns. - Her fasting blood glucose levels gener ally range between 154 to 174 mg/dL, with a single elevated morning reading of 200 mg/dL. - She admits to dietary indiscretions im pacting her glycemic control. - Current diabetes medications include i nsulin aspart (NovoLog) and dulaglutide (Trulicity), patient is supposed to be on Lantus 15 units in the morning and 30 at night however she says that she never received the script - The patient suffered a right ankle fra cture late March after losing balance while entering a vehicle which now causes intermittent pain and affects mobility. Treated by [facility] - it seems as patient still need physica l therapy, currently impacting her rehabilitation process as ongoing pain and ambulation difficulties are noted. Awaiting for physical therapy order through [facility] Problem List - Anemia - Chronic Kidney Disease - Type 2 Diabetes Mellitus - Hypertension - Restless Leg Syndrome - Asthma - Right Ankle Fracture - Urinary Incontinence - morbid obesity Medications - Insulin aspart (NovoLog) ? 3 times lele ly for management of Type 2 Diabetes Mellitus - Dulaglutide (Trulicity) 1.5 mg once we ekly for management of Type 2 Diabetes Mellitus - Lisinopril for hypertension - Amlodipine for hypertension - Ropinirole for Restless Leg Syndrome - Trazodone - Gabapentin - Aspirin - Supplemental oxygen therapy ? 2 liters at nighttime for asthma management - all medication list reviewed with the patient Diagnostic results - Labs: CBC indicating slight anemia wit h hemoglobin at 11.1 g/dL, creatinine level at 1.88 mg/dL from five months prior. - Metabolic profile showed appropriate l iver enzyme levels. . [facility] of Care - An appointment with the psychiatrist i s scheduled for upcoming adjustments to psychiatric medications. - The patient has been directed to [facility] care with [facility] for her right ankle fracture. -nephrology - digital imaging specialist [facility] enter Patient Instructions - Check blood sugar levels regularly and report variances. - Start taking insulin glargine (Lantus) as scheduled upon receiving it. - Consult with [facility] re garding further rehabilitation for the right ankle. - Follow up on resuming physical therapy appointments for ankle mobility improvement. - Continue with current hypertension, Re stless Leg Syndrome, and asthma medications as prescribed. - Schedule and attend the next appointme nt with the psychiatrist. Plan Management of the patient's Type 2 Diabetes Mellitus involves restarting the long-acting insulin glargine regimen, which should improve her glycemic control and potentially reduce daily insulin aspart dependency. Due to challenges in acquiring medication, coordination with pharmacy services may be warranted. Her recent ankle fracture necessitates resumed physical therapy sessions and follow- up with orthopedics to advance mobility, an integral component for diabetes and overall health. Her current hypertension management will continue in tandem with ongoing medication usage, considering her slight renal insufficiency. Re-enga ging with psychiatric services is important soon, aligning trazodone and gabapentin use with her mental and physical health needs. Reinforcing dietary mindfulness and sustaining physical activity within tolerable limits are advised to synergize with her therapeutic management plan. Review of Systems - Musculoskeletal: Reports pain in right ankle with weather changes; variable ability to ambulate. Still have a splint on over the ankle - Endocrine: Reports fluctuations in glu cose levels, diet impacting levels. - Gastrointestinal: Denies constipation. - Genitourinary: Reports ongoing urinary incontinence. - Respiratory: Denies symptoms during co nsultation but uses supplemental oxygen at night. - Neurological: Reports insomnia issues. - Hematologic: Reports anemia, as indica jeanna by CBC results. General: No fever no chills neurological: No headaches no dizziness ear nose throat: No sore throat no hearing difficulty no ear pain cardiovascular: No syncope, no chest pain, no palpitations gastrointestinal: No nausea vomiting or diarrhea genitourinary: No dysuria skin: No new complaints Physical Exam general: No acute distress HEENT: No acute findings neck: Supple respiratory system: Able to talk in full sentences, no audible wheeze no stridor cardiovascular: S1-S2 gastrointestinal: No pain extremities: Right ankle fracture, healing; patient reports pain and variable ability to walk on it 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 awake oriented x3 motor sensory intact skin: Normal turgor Extremity: Splint on right ankle patient is sitting in wheelchair [facility] Medical History Exercise hypoxemia Recurrent UTI COPD (chronic obstructive pulmonary disease) Uncontrolled diabetes mellitus Depression, major, recurrent Dysuria Kidney stone on left side Diabetes 1.5, managed as type 1 COPD (chronic obstructive pulmonary disease) Respiratory failure with hypoxia Urinary tract infection Hypoxemia Morbid obesity CKD (chronic kidney disease) Anemia COPD exacerbation Allergic rhinitis ALDO (obstructive sleep apnea) Obesity (BMI 30-39.9) Constipation due to opioid therapy Osteoarthritis of left knee Hx SBO Hyperlipidemia CPAP (continuous positive airway pressure) dependence History of adrenal adenoma Osteochondroma of left femur Arthritis Diabetes Elevated cholesterol History of restless legs syndrome History of diverticulitis GERD (gastroesophageal reflux disease) Surgical History H/O excision of mass History of oophorectomy History of cholecystectomy History of appendectomy History of arthroscopy of left knee History of partial colectomy Hx of cataract extraction H/O exploratory laparotomy H/O colonoscopy History of surgery History of hysterectomy Family History Father HTN (hypertension) Diabetes mellitus Mother HTN (hypertension) Liver cancer Social History 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: Other 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 Other:: ex- has been staying over Housing: House Are you a primary care program resident to a significant other at home: No Do you presently have visiting nurse or other home services: Yes Unable to assess alcohol history related to: Unknown Alcohol intake: never Comment: PT SLEEPING Patient Tobacco Use Status: Never used Tobacco e-Cigarette/Vaping Use: Never Used Second Hand Smoke Exposure: No Advance Directives Date on File: 10/19/23 service: No Current occupational status: retired Cognitive needs: No Hearing needs: No Vision needs: No Female Reproductive History Menstrual Age of Menarche: 13 Questionnaire PHQ-9 Over the last 2 weeks, how often have you been bothered by any of the following problems? 1. Little interest or pleasure in doing things: more than half the days 2. Feeling down, depressed, or hopeless: more than half the days 3. Trouble falling or staying asleep, or sleeping too much: several days 4. Feeling tired or having little energy: several days 5. Poor appetite or overeating: several days 6. Feeling bad about yourself - or that you are a failure or have let yourself or your family down: not at all 7. Trouble concentrating on things, such as reading the newspaper or watching television: not at all 8. Moving or speaking so slowly that other people could have noticed. Or the opposite - being so fidgety or restless that you have been moving around a lot more than usual: several days 9. Thoughts that you would be better off or of hurting yourself in some way: not at all Total score: 8 Depression Screening Interpretation: Negative Depression Screening Done: Yes 56450 - PHQ-9 Billing: Yes Source: Developed by Drs. Ellis Child, Nimo Castillo, Miguel East and colleagues, with an educational miki from [employer]. Thrive Questionnaire Date Thrive assessed: 07/26/24 I am a: Patient What is your living situation today?: I have a steady place to live Within the past 12 months, did the food you bought not last and you didn't have the money to get more?: Never true Within the past 12 months, did you worry whether your food would run out before you got money to buy more?: Never true Do you have trouble paying for medicines?: No Do you have trouble getting transportation to medical appointments?: No Do you have trouble paying your heating and electricity bill?: No Do you have trouble taking care of your child, family member or friend?: No Do you have trouble with day-to-day activities such as bathing, preparing meals, shopping, managing finances, etc.?: No Are you currently unemployed and looking for a job?: No Are you interested in more education?: No Please select the resources that you would like help with: None Currently or been in a relationship where the following occur: No concerns reported THRIVE Score: 0 AUDIT C Alcohol Use Questionnaire (AUDIT-C) 1. How often do you have a drink containing alcohol?: Never 3. How often do you have six or more drinks on one occasion?: Never Total Score: 0 Score Reviewed/Action Taken: Yes RACHNA-7 AMB Questionnaire RACHNA-7 Date RACHNA - 7 assessed: 07/26/24 Feeling nervous, anxious, or on edge: 0 = Not at all Not being able to stop or control worryin = Not at all Worrying too much about different things: 0 = Not at all Trouble relaxin = Not at all Being so restless that it is hard to sit still: 0 = Not at all Becoming easily annoyed or irritable: 0 = Not at all Feeling afraid as if something awful might happen: 0 = Not at all Total RACHNA-7 score (0-4 normal; 5-9 mild; 10-14 moderate; 15-21 severe): 0 Source: Developed by Drs. Ellis Child, Nimo Castillo, Miguel East and colleagues, with an educational miki from [employer]. RACHNA-7 Assessment Billing RACHNA-7 Assessment Tool: RACHNA-7 Assessment 86558 Physical exam (Primary Care) Vital Signs: Last Vital Signs Pulse 84 07/26/24 08:18 BP 110/62 07/26/24 08:18 Pulse Ox 96 07/26/24 08:18 Oxygen Delivery Method Room Air 07/26/24 08:18 BMI result Body Mass Index 41.5 Tobacco/Smoking Status: Tobacco use Status Tobacco use date assessed 07/26/24 07/26/24 08:27 Patient Tobacco Use Status Never used Tobacco 07/26/24 08:27 e-Cigarette/Vaping Use Never Used 07/26/24 08:27 PHQ-9: PHQ-9 Score PHQ-9: Total score 8 07/26/24 08:48 Depression Screening Interpretation: Negative Thrive Assessment: Date of Thrive Assessment Date Thrive assessed 07/26/24 07/26/24 08:27 Currently or been in a relationship where the following occur: No concerns reported Coding Level of Care Code Est Pt Level 4 (91835) Complex EM visit Add On G2211 Diagnoses Insulin dependent diabetes mellitus type IA E10.9 Lipid disorder E78.9 halfway (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 insulin Z79.4 Anemia due to stage 3a chronic kidney disease N18.31; D63.1 Anemia type: due to chronic kidney disease Chronic kidney disease stage: stage 3 (moderate) Chronic kidney disease stage 3 subtype: stage 3a (GFR 45-59) Diabetic neuropathy, painful E11.40 Chronic GERD K21.9 Restless leg syndrome G25.81 Environmental allergies Z91.09 Anxiety, generalized F41.1 Mixed stress and urge urinary incontinence N39.46 Urinary Incontinence type: mixed stress and urge incontinence Restrictive airway disease J98.4 Non-seasonal allergic rhinitis due to other allergic trigger J30.89 Allergic rhinitis trigger: other Allergic rhinitis seasonality: non-seasonal Elevated serum creatinine R79.89 Supplemental oxygen dependent Z99.81 Additional Codes RACHNA-7 Assessment Billing - RACHNA-7 Assessment Tool: RACHNA-7 Assessment 43382 ([id number]) PHQ-9 - 76205 - PHQ-9 Billing: Yes ([id number]) Assessment & Plan Assessment & Plan (1) Insulin dependent diabetes mellitus type IA: Code(s): E10.9 - Type 1 diabetes mellitus without complications Category: Medical (2) Lipid disorder: Code(s): E78.9 - Disorder of lipoprotein metabolism, unspecified Category: Medical (3) halfway (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 insulin: Code(s): Z79.4 - terminal supervisor (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 insulin Category: Medical (4) Anemia: Code(s): D64.9 - Anemia, unspecified Category: Medical Qualifiers: Anemia type: due to chronic kidney disease Chronic kidney disease stage: stage 3 (moderate) Chronic kidney disease stage 3 subtype: stage 3a (GFR 45-59) Qualified Code(s): N18.31 - Chronic kidney disease, stage 3a; D63.1 - Anemia in chronic kidney disease (5) Diabetic neuropathy, painful: Code(s): E11.40 - Type 2 diabetes mellitus with diabetic neuropathy, unspecified Category: Medical (6) Chronic GERD: Code(s): K21.9 - Gastro-esophageal reflux disease without esophagitis Category: Medical (7) Restless leg syndrome: Code(s): G25.81 - Restless legs syndrome Category: Medical (8) Environmental allergies: Code(s): Z91.09 - Other allergy status, other than to drugs and biological substances Category: Medical (9) Anxiety, generalized: Code(s): F41.1 - Generalized anxiety disorder Category: Medical (10) Urine incontinence: Code(s): R32 - Unspecified urinary incontinence Category: Medical Qualifiers: Urinary Incontinence type: mixed stress and urge incontinence Qualified Code(s): N39.46 - Mixed incontinence (11) Restrictive airway disease: Comment: Patient has restrictive lung disorder related to obesity. Code(s): J98.4 - Other disorders of lung Category: Medical (12) Allergic rhinitis: Comment: Mild, and AND SEEMS TO BE FAIRLY WELL CONTROLLED AT THIS TIME. Code(s): J30.9 - Allergic rhinitis, unspecified Category: Medical Qualifiers: Allergic rhinitis trigger: other Allergic rhinitis seasonality: non- seasonal Qualified Code(s): J30.89 - Other allergic rhinitis (13) Elevated serum creatinine: Code(s): R79.89 - Other specified abnormal findings of blood chemistry Category: Medical (14) Supplemental oxygen dependent: Code(s): Z99.81 - Dependence on supplemental oxygen Category: Medical Plan - The patient is a 74-year-old female presenting with Type 2 Diabetes Mellitus management concerns. - Her fasting blood glucose levels generally range between 154 to 174 mg/dL, with a single elevated morning reading of 200 mg/dL. - She admits to dietary indiscretions impacting her glycemic control. - Current diabetes medications include insulin aspart (NovoLog) and dulaglutide (Trulicity), patient is supposed to be on Lantus 15 units in the morning and 30 at night however she says that she never received the script - The patient suffered a right ankle fracture late March after losing balance while entering a vehicle which now causes intermittent pain and affects mobility. Treated by [facility] - it seems as patient still need physical therapy, currently impacting her rehabilitation process as ongoing pain and ambulation difficulties are noted. Awaiting for physical therapy order through [facility] Problem List - Anemia - Chronic Kidney Disease - Type 2 Diabetes Mellitus - Hypertension - Restless Leg Syndrome - Asthma - Right Ankle Fracture - Urinary Incontinence - morbid obesity Medications - Insulin aspart (NovoLog) ? 3 times daily for management of Type 2 Diabetes Mellitus - Dulaglutide (Trulicity) 1.5 mg once weekly for management of Type 2 Diabetes Mellitus - Lisinopril for hypertension - Amlodipine for hypertension - Ropinirole for Restless Leg Syndrome - Trazodone - Gabapentin - Aspirin - Supplemental oxygen therapy ? 2 liters at nighttime for asthma management - all medication list reviewed with the patient Diagnostic results - Labs: CBC indicating slight anemia with hemoglobin at 11.1 g/dL, creatinine level at 1.88 mg/dL from five months prior. - Metabolic profile showed appropriate liver enzyme levels. . [facility] of Care - An appointment with the psychiatrist is scheduled for upcoming adjustments to psychiatric medications. - The patient has been directed to continue care with [facility] for her right ankle fracture. -nephrology - digital imaging specialist [facility] Patient Instructions - Check blood sugar levels regularly and report variances. - Start taking insulin glargine (Lantus) as scheduled upon receiving it. - Consult with [facility] regarding further rehabilitation for the right ankle. - Follow up on resuming physical therapy appointments for ankle mobility improvement. - Continue with current hypertension, Restless Leg Syndrome, and asthma medications as prescribed. - Schedule and attend the next appointment with the psychiatrist. Plan Management of the patient's Type 2 Diabetes Mellitus involves restarting the long-acting insulin glargine regimen, which should improve her glycemic control and potentially reduce daily insulin aspart dependency. Due to challenges in acquiring medication, coordination with pharmacy services may be warranted. Her recent ankle fracture necessitates resumed physical therapy sessions and follow- up with orthopedics to advance mobility, an integral component for diabetes and overall health. Her current hypertension management will continue in tandem with ongoing medication usage, considering her slight renal insufficiency. Re- engaging with psychiatric services is important soon, aligning trazodone and gabapentin use with her mental and physical health needs. Reinforcing dietary mindfulness and sustaining physical activity within tolerable limits are advised to synergize with her therapeutic management plan. Orders: Orders Hemoglobin A1c Today D63.1 - Anemia in chronic kidney disease, E10.9 - Type 1 diabetes mellitus without complications, E11.40 - Type 2 diabetes mellitus with diabetic neuropathy, unspecified, E78.9 - Disorder of lipoprotein metabolism, unspecified, F41.1 - Generalized anxiety disorder, G25.81 - Restless legs syndrome, J30.9 - Allergic rhinitis, unspecified, J98.4 - Other disorders of lung, K21.9 - Gastro-esophageal reflux disease without esophagitis, N18.31 - Chronic kidney disease, stage 3a, N39.46 - Mixed incontinence, R79.89 - Other specified abnormal findings of blood chemistry, Z79.4 - terminal supervisor (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 insulin, Z91.09 - Other allergy status, other than to drugs and biological substances, Z99.81 - Dependence on supplemental oxygen Comprehensive Met. Panel Today D63.1 - Anemia in chronic kidney disease, E10.9 - Type 1 diabetes mellitus without complications, E11.40 - Type 2 diabetes mellitus with diabetic neuropathy, unspecified, E78.9 - Disorder of lipoprotein metabolism, unspecified, F41.1 - Generalized anxiety disorder, G25.81 - Restless legs syndrome, J30.9 - Allergic rhinitis, unspecified, J98.4 - Other disorders of lung, K21.9 - Gastro-esophageal reflux disease without esophagitis, N18.31 - Chronic kidney disease, stage 3a, N39.46 - Mixed incontinence, R79.89 - Other specified abnormal findings of blood chemistry, Z79.4 - halfway (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 insulin, Z91.09 - Other allergy status, other than to drugs and biological substances, Z99.81 - Dependence on supplemental oxygen Microalbumin, Random (w Creat) Today D63.1 - Anemia in chronic kidney disease, E10.9 - Type 1 diabetes mellitus without complications, E11.40 - Type 2 diabetes mellitus with diabetic neuropathy, unspecified, E78.9 - Disorder of lipoprotein metabolism, unspecified, F41.1 - Generalized anxiety disorder, G25.81 - Restless legs syndrome, J30.9 - Allergic rhinitis, unspecified, J98.4 - Other disorders of lung, K21.9 - Gastro-esophageal reflux disease without esophagitis, N18.31 - Chronic kidney disease, stage 3a, N39.46 - Mixed incontinence, R79.89 - Other specified abnormal findings of blood chemistry, Z79.4 - halfway (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 insulin, Z91.09 - Other allergy status, other than to drugs and biological substances, Z99.81 - Dependence on supplemental oxygen Complete Blood Count Auto Diff Today D63.1 - Anemia in chronic kidney disease, E10.9 - Type 1 diabetes mellitus without complications, E11.40 - Type 2 diabetes mellitus with diabetic neuropathy, unspecified, E78.9 - Disorder of lipoprotein metabolism, unspecified, F41.1 - Generalized anxiety disorder, G25.81 - Restless legs syndrome, J30.9 - Allergic rhinitis, unspecified, J98.4 - Other disorders of lung, K21.9 - Gastro-esophageal reflux disease without esophagitis, N18.31 - Chronic kidney disease, stage 3a, N39.46 - Mixed incontinence, R79.89 - Other specified abnormal findings of blood chemistry, Z79.4 - halfway (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 insulin, Z91.09 - Other allergy status, other than to drugs and biological substances, Z99.81 - Dependence on supplemental oxygen LDL Cholesterol Direct Today D63.1 - Anemia in chronic kidney disease, E10.9 - Type 1 diabetes mellitus without complications, E11.40 - Type 2 diabetes mellitus with diabetic neuropathy, unspecified, E78.9 - Disorder of lipoprotein metabolism, unspecified, F41.1 - Generalized anxiety disorder, G25.81 - Restless legs syndrome, J30.9 - Allergic rhinitis, unspecified, J98.4 - Other disorders of lung, K21.9 - Gastro-esophageal reflux disease without esophagitis, N18.31 - Chronic kidney disease, stage 3a, N39.46 - Mixed incontinence, R79.89 - Other specified abnormal findings of blood chemistry, Z79.4 - halfway (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 insulin, Z91.09 - Other allergy status, other than to drugs and biological substances, Z99.81 - Dependence on supplemental oxygen Medications: Refilled insulin glargine (Lantus Solostar U-100 Insulin) 15 units in am, 30 units at bedtime each day, subcutaneously; 45 mL 1RF
== END 2024-07-26 09:02 | disposition home or self-care (01) ==
PROVIDERS: PCP Internal Medicine; Visit Provider Internal Medicine
DX: E10.9 Type 1 diabetes mellitus without complications (principal); E78.9 Disorder of lipoprotein metabolism, unspecified; Z79.4 Long term (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 insulin; N18.31 Chronic kidney disease, stage 3a; D63.1 Anemia in chronic kidney disease; E11.40 Type 2 diabetes mellitus with diabetic neuropathy, unspecified; K21.9 Gastro-esophageal reflux disease without esophagitis; G25.81 Restless legs syndrome; Z91.09 Other allergy status, other than to drugs and biological substances; F41.1 Generalized anxiety disorder; N39.46 Mixed incontinence; J98.4 Other disorders of lung; J30.89 Other allergic rhinitis; R79.89 Other specified abnormal findings of blood chemistry; Z99.81 Dependence on supplemental oxygen

== ENCOUNTER 2024-10-20 13:38 | Outpatient (AMB) | payer OTHER, SELFPAY ==
[2024-10-20 13:45] VITALS: BP 118/52; PULSE 91; O2SAT 90; BMI 40.3
--- NOTE | 2024-10-20 13:45 | A.OFFVIS_ITS ---
Vital Signs 10/20/24 13:45 Height 5 ft Weight 206 lb 2.115 oz BMI 40.3 BP 118/52 L Blood Pressure Location Lt brachial Position Sitting Pulse 91 Pulse Source Pulse Oximeter Pulse Oximetry (%) 90 L Oxygen Delivery Method Room Air Intake Visit Reasons: COPD follow-up Intake Note: pt is here for follow up and states she is not good with her breathing, a lot of wheezing, hard to get out of bed, she has a lump on side of left side of neck ? affecting her breathing., she does use oxygen at night when sleeping. Internal Communications Writer Required: No Allergies adhesive tape [ADHESIVE TAPE] Allergy (Intermediate, Verified 10/20/24 14:03) RASH trimethobenzamide [From TIGAN] Allergy (Mild, Verified 10/20/24 14:03) NAUSEA NSAIDS (Non-Steroidal Anti-Inflamma Adverse Reaction (Mild, Verified 10/20/24 14:03) Nephropathy environmental Allergy (Intermediate, Uncoded 10/20/24 14:03) Nasal congestion Medication List - Last Reconciled 10/20/24 by Hong Frederick MD albuterol sulfate 90 mcg/actuation (ProAir HFA) 2 puffs inhalation Q4H PRN albuterol sulfate 2.5 mg (3 mL) inhalation Q4-6H PRN amlodipine 5 mg PO DAILY aspirin 81 mg PO DAILY atorvastatin 80 mg PO DAILY 90 days benzonatate 100 mg PO TID PRN blood sugar diagnostic (FreeStyle Lite Strips) Use to check blood sugar 3 times a day as needed blood sugar diagnostic (OneTouch Ultra Test strips) Use to check blood sugar 3 times a day as needed blood-glucose meter (OneTouch Ultra2 Meter) Use to check blood sugar twice daily and when having symptoms of hypo/hyperglycemia budesonide 0.5 mg (2 mL) inhalation BID 30 days bupropion HCl XL 150 mg PO DAILY cholecalciferol (vitamin D3) 25 mcg PO DAILY citalopram 20 mg PO DAILY diaper,brief,adult,disposable Size medium pull up briefs diaper,brief,adult,disposable Use for stress incontinence dulaglutide (Trulicity) 1.5 mg (0.5 mL) subcut QWEEK 30 days gabapentin 900 mg PO BEDTIME gabapentin 300 mg PO ONCE hydroxyzine pamoate 25 mg PO DAILY insulin aspart U-100 (Novolog FlexPen U-100 Insulin aspart) See Protocol sliding scale doses subcut TID insulin glargine (Lantus Solostar U-100 Insulin) 15 units in am, 30 units at bedtime each day, subcutaneously; ipratropium-albuterol 0.5 mg-3 mg(2.5 mg base)/3 mL 3 mL inhalation QID 30 days lancets once a day lancets Use to check blood sugar twice daily and when having symptoms of hypo/hyperglycemia lisinopril 10 mg PO DAILY 90 days montelukast 10 mg PO DAILY nebulizers (AeroEclipse II Nebulizer) As directed oxygen-air delivery systems As directed pen needle, diabetic (BD Ultra-Fine Mini Pen Needle) Use to administer insulin twice daily pen needle, diabetic check blood sugar four times per a day ropinirole 2 mg PO BID Shower Chair Shower chair with back and arm rests trazodone 200 mg PO BEDTIME walker Wheeled walker with seat and brakes Do you need a note to return to daycare/school/sports/work: No HPI HPI COPD follow-up: Details: This 74 years old female is here for 4 months follow-up. She is being treated for chronic bronchial asthma/COPD. Which has remained relatively stable. Discussed many issues related to the cost of medications, monthly charge for using oxygen, Lot of stress at home and her daughter who has advanced chronic obstructive pulmonary disease always complaining of shortness of breath but continues smoking. Mine is on budesonide 0.5 mg via nebulizer b.i.d., and ipratropium-albuterol solution in the nebulizer to use at least 3 times a day. She is doing it regularly. She has O2 at home and is supposed to use O2 2 L/minute at night and 2 L/minute p.r.n. during the daytime. [facility] Medical History Exercise hypoxemia Recurrent UTI COPD (chronic obstructive pulmonary disease) Uncontrolled diabetes mellitus Depression, major, recurrent Dysuria Kidney stone on left side Diabetes 1.5, managed as type 1 COPD (chronic obstructive pulmonary disease) Respiratory failure with hypoxia Urinary tract infection Hypoxemia Morbid obesity CKD (chronic kidney disease) Anemia COPD exacerbation Allergic rhinitis ALDO (obstructive sleep apnea) Obesity (BMI 30-39.9) Constipation due to opioid therapy Osteoarthritis of left knee Hx SBO Hyperlipidemia CPAP (continuous positive airway pressure) dependence History of adrenal adenoma Osteochondroma of left femur Arthritis Diabetes Elevated cholesterol History of restless legs syndrome History of diverticulitis GERD (gastroesophageal reflux disease) Surgical History H/O excision of mass History of oophorectomy History of cholecystectomy History of appendectomy History of arthroscopy of left knee History of partial colectomy Hx of cataract extraction H/O exploratory laparotomy H/O colonoscopy History of surgery History of hysterectomy Family History Father HTN (hypertension) Diabetes mellitus Mother HTN (hypertension) Liver cancer Social History 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: Other 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 Other:: ex- has been staying over Housing: House Are you a primary healthcare administration intern to a significant other at home: No Do you presently have visiting nurse or other home services: Yes Unable to assess alcohol history related to: Unknown Alcohol intake: never Comment: PT SLEEPING Patient Tobacco Use Status: Never used Tobacco e-Cigarette/Vaping Use: Never Used Second Hand Smoke Exposure: No Advance Directives Date on File: 10/19/23 service: No Current occupational status: retired Cognitive needs: No Hearing needs: No Vision needs: No Female Reproductive History Menstrual Age of Menarche: 13 Review of Systems Const All systems reviewed & are unremarkable except as noted in HPI and below Eyes Reports no additional complaints ENT Reports nasal congestion (Intermittent) Card Denies chest pain, Denies irregular heart rhythm, Reports leg edema and Reports dyspnea Resp Reports as per HPI and Reports dyspnea GI Reports no additional complaints Reports no additional complaints Musc Reports abnormal gait (Impaired gait due to weakness of lower extremities, has to use a walker), Reports back pain and Reports limited range of motion Skin/Breast Reports system reviewed and no additional complaints, except as documented Neuro Reports abnormal gait (Impaired gait due to weakness of lower extremities, has to use a walker) Endo Reports other (Being treated for diabetes mellitus with diabetic neuropathy) Physical Exam Vital Signs: Last Vital Signs Pulse 91 10/20/24 13:45 BP 118/52 L 10/20/24 13:45 Pulse Ox 90 L 10/20/24 13:45 Oxygen Delivery Method Room Air 10/20/24 13:45 BMI result Body Mass Index 40.3 Const General: comfortable (But very weak), no acute distress, alert and awake Orientation/consciousness: patient oriented x3 HEENT Head: Yes normal to inspection General nose exam: No nasal polyps present, No nasal discharge present and Other nasal findings present (Mild nasal congestion) Face and sinus: Yes sinuses nontender Mouth: oropharynx normal Throat: Yes posterior oropharynx normal Eyes General: appearance normal, both eyes and all related structures Neck Neck: Yes normal visual inspection, Yes no lymphadenopathy, Yes trachea midline and Yes no JVD Thyroid: Thyroid normal Chest Chest palpation & inspection: normal inspection of the chest, normal palpation of entire chest wall and no tenderness Resp Other: Percussion note is resonant, breath sounds are very decreased over the basilar areas. No audible wheezes rhonchi or creps. Cardio Palpation: normal PMI Rate: regular rate Rhythm: regular rhythm Heart sounds: no gallops and no murmurs GI Palpation (GI): Soft to palpation, nontender, No hepatosplenomegaly present, no masses and Other GI palpation findings present (Abdomen is obese and protuberant) Auscultation: normal bowel sounds Back/Spine/Pelvis Thoracic/Lumbar Spine: thoracic and lumbar spine normal to inspection and thoraco-lumbar ROM limited Skin General skin exam: no rashes or lesions noted Neuro General: patient oriented x3 and no focal motor deficits Cranial nerves: Yes CN's II-XII intact bilaterally Extrem General: Yes normal to inspection, Yes no calf tenderness, Yes edema (ONLY MINIMAL AT THIS TIME.) and Yes venous stasis dermatitis Psych Appearance: grossly normal Speech and movement: Normal speech and movement present Assessment & Plan Assessment & Plan (1) Restrictive airway disease: Comment: Patient has restrictive lung disorder related to obesity. Lilia has moderately severe restrictive pulmonary disorder mainly due to her ob esity. Code(s): J98.4 - Other disorders of lung Category: Medical Plan: Advised to continue doing deep breathing exercises at least 3 times a day. Try to lose some weight, but she has difficulty in losing weight , because she can not do much exercise. (2) COPD (chronic obstructive pulmonary disease): Comment: MINE HAS LONGSTANDING HISTORY OF COPD, CURRENTLY STABLE WITH THE USE OF MEDS, HER CURRENT REGIMEN IS ARRANGED TO, MINIMIZE HER CO-PAYMENT. Code(s): J44.9 - Chronic obstructive pulmonary disease, unspecified Category: Medical Qualifiers: COPD type: emphysema Emphysema type: panlobular Qualified Code(s): J43.1 - Panlobular emphysema Plan: CONTINUE USING BUDESONIDE 5 MG SOLUTION IN THE NEBULIZER B.I.D.. CONTINUE USING IPRATROPIUM-ALBUTEROL SOLUTION IN THE NEBULIZER AND USE AT LEAST 3 TIMES A DAY. MAY USE ALBUTEROL HFA 2 PUFFS Q 6 HOURS P.R.N. WHEN OUTDOORS. (3) Respiratory failure with hypoxia: Comment: This patient definitely has nocturnal hypoxemia as well as Exercise induced Hypoxemia . Use of POC not effective as she is mouth breather Code(s): J96.91 - Respiratory failure, unspecified with hypoxia Category: Medical Plan: ADVISED TO CONTINUE USING O2 2 L/MINUTE AT NIGHT. AND 2 L/MINUTE DURING THE DAYTIME P.R.N. IF SHE IS WALKING AROUND OR FEELS MORE SHORT OF BREATH. Coding Level of Care Code Est Pt Level 3 (14427) Diagnoses Restrictive airway disease J98.4 Panlobular emphysema J43.1 COPD type: emphysema Emphysema type: panlobular Respiratory failure with hypoxia J96.91
--- OUTSIDE RECORDS SUMMARY | 2024-10-20 16:30 | XMS_ITS | Patient Health Record ---
Author Organization [facility] Address [address] [place] [address] Care Team Providers Care Inspecting Engineer Name Role Phone José Manuel Bowman MD Primary Care Provider UnavailEllis Bernabe Unavailable [phone] Wallace Graham MD Unavailable Unavailable Allergies Allergen (clinical drug ingredient) Drug/Non Drug Allergy documented on EMR Reaction Allergy Type Onset Date Status trimethobenzamide Tigan Unknown Drug Allergy Active Reason For Referral No Information Problems Problem Type SNOMED Code ICD Code Onset Dates Problem Status W/U Status Risk Notes Problem Ulcerative colitis (55165530) Ulcerative colitis (K51.90) Active confirmed Plan Of Treatment No Information Insurance Providers Payer Name Payer Address Payer Phone Subscriber Number Group Number Insured Name Patient Relationship to Insured Coverage Start Date Coverage End Date MEDICARE OF [place] [address] [place]IN [place]AKR[place] [id number] [phone] [id number] DESMOND BROOKE Self - patient is the insured MEDICAID OF [facility] [address] [place] [address] [phone] [id number] DESMOND BROOKE Self - patient is the insured Medical (General) History Medical History History ICD Code colonoscopy 11-09-2006 gerd Surgical History Surgery Date(Month/Year) cholecystectomy hysterectomy with oophorectomy D&C and tubal ligation
--- OUTSIDE RECORDS SUMMARY | 2024-10-20 16:30 | XMS_ITS ---
Author Organization [facility] Address [address] [place] [address] Care Team Providers Care Encapsulator Name Role Phone Chris Shelbi Primary Care Provider Unavailabl e Rajwinder Johns Unavailable [phone] REASON FOR VISIT BH Referral Encounters Encounter Location Date Provider Diagnosis [facility] [address] [place] [address] 10/10/2024 Rajwinder Johns Plan Of Treatment Next Appt Details Provider Name:Rajwinder jenkins, 10/21/2024 10:00:00 AM, [address] [facility], [facility] [address], [place], [address], Progress Notes * Mine PEACOCK RDOB:1950 (74 yo F)Acc No.[id number]:10/10/2024 Patient:?Mine PEACOCK :1950???Age:74 Y???Sex:Female Address:[address] [place] [address], [address], [place] [address] * true * Date:? Generated for Karli chucky/Wendy/eTransmitting on:?10/20/2024 04:29 PM EDT
--- OUTSIDE RECORDS SUMMARY | 2024-10-20 16:30 | XMS_ITS ---
Author Organization [facility] Address [address] [place] [address] Care Team Providers Care Computer Methods Analyst Name Role Phone Chris BROWNE, [facility] Primary Care Provider Nik Horner [phone] REASON FOR VISIT Reschedule Encounters Encounter Location Date Provider Diagnosis [address] [address] 04/29/2024 Nik Hernandez Plan Of Treatment Next Appt Details Provider Name:Nik Hernandez , 11/15/2024 03:30:00 PM, [address] [place] [address], [address], Progress Notes * Mary PEACOCKeDOB:1950 ( 74 yo F)Acc No.[id number]:04/29/2024 Patient:?Mine Peacock :1950???Age:74 Y???Sex:Female Address:[address] [place] [address], [place], [address] * true * Date:? Generated for Judah locke/Wendy/eTransmitting on:?10/20/2024 04:30 PM EDT
--- OUTSIDE RECORDS SUMMARY | 2024-10-20 16:30 | XMS_ITS | Encounter Summary ---
Author Organization [facility] Address [address] [place] [address] Care Team Providers Care Licensing Worker Name Role Phone Delaney Sherman MD Primary Care Provider Encounter Details Date Type Department Care Team (Latest Contact Info) Description 06/14/2024 Lab Requisition [facility] - Main Lab [address] [place] [address] Delaney Sherman MD [address] [place] [address] siebel solution architect (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 insulin (CMS/HCC V24, CMS/HCC V28); Type 2 diabetes mellitus without complications (CMS/HCC V24, CMS/HCC V28) Social History Tobacco Use Types Packs/Day Years Used Date Smoking Tobacco: Never Assessed Comments Unknown Sex and Gender Information Value Date Recorded Sex Assigned at Not on file Legal Sex Female 7:51 AM EST Gender Identity Not on file Sexual Orientation Not on file documented as of this encounter Plan of Treatment Not on file documented as of this encounter Procedures Procedure Name Priority Date/Time Associated Diagnosis Comments HEMOGLOBIN A1C Routine 06/14/2024 4:50 AM EST detention (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 insulin (CMS/[facility]) Type 2 diabetes mellitus without complications (CMS/[facility]) documented in this encounter Results * (ABNORMAL) Hemoglobin A1c (06/14/2024 4:50 AM EST) Hemoglobin A1C 6.5(H) <6.5 % LAB CHEMISTRY METHOD 06/14/2024 12:36 PM EST [facility] Mean Bld Glu Estim. 140 mg/dL LAB CHEMISTRY METHOD 06/14/2024 12:36 PM EST [facility] Blood Venous blood specimen / Unknown Venipuncture / Unknown 06/14/2024 4:50 AM EST 06/14/2024 8:48 AM EST Delaney Sherman MD LAB BLOOD ORDERABLES Final Resu lt [facility] ([facility] [address] [place] [address], documented in this encounter Visit Diagnoses Diagnosis siebel solution architect (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 insulin (CMS/HCC V24, CMS/[facility] V28) Type 2 diabetes mellitus without complications (CMS/HCC V24, CMS/HCC V28) documented in this encounter Care Teams Licensing Worker Relationship Specialty Start Date End Date Delaney Sherman MD [address] [place] [id number] PCP - General Hospitalist Medicine 06/14/24 documented as of this encounter
--- OUTSIDE RECORDS SUMMARY | 2024-10-20 16:31 | XMS_ITS ---
Author Organization [facility] Address [address] [place] [address] Care Team Providers Care Drafter Commercial Name Role Phone Shelbi Perez Primary Care Provider Unavailabl e Rajwinder Johns Unavailable [phone] REASON FOR VISIT Chronic Care F/U Encounters Encounter Location Date Provider Diagnosis [facility] [address] [facility] [address] [place] [address] 10/14/2024 Rajwinder Johns Plan Of Treatment Next Appt Details Provider Name:Rajwinder jenkins, 10/21/2024 10:00:00 AM, [address] [facility] [address], [place], [address], Progress Notes * Mine PEACOCK RDOB:1950 (74 yo F)Acc No.[id number]:10/14/2024 Patient:?Mine PEACOCK ??External Provider:?OH Jean :1950???Age:74 Y???Sex:Female D ate:10/14/2024 Address:[address] [place] [address], [place], [id number] Pcp:Shelbi Perez Subjective: * Chief Complaints: * ???1. Chronic Care F/U. * Medical History:?? Objective: * Vitals:? Assessment: Plan: * Treatment: Care Plan: * Problems:? * * The named appointment provid er may or may not be the originator of this progress note, and it is not deemed complete until electronically signed by the appointment provider. Sign off status: Pending * Provider:?[place] Jean Date:?0 10/14/2024 Generated for Judah locke/Wendy/Kyle on:?10/20/2024 04:31 PM EDT
--- OUTSIDE RECORDS SUMMARY | 2024-10-20 16:31 | XMS_ITS ---
Author Organization [facility] Care Team Providers Care Training Development Manager Name Role Phone Musa Castano Unavailable Unavailable Nan Torres Unavailable Unavailable Allergies and adverse reactions Code CodeSystem Substance Reaction Severity StartDate Concern Status 17536 RXNORM Trimethobenzamide Unknown 07/09/2021 act conchita Adhesive Tape Unknown 07/09/2021 active Care Team Name Role Address Phone Organization Dates Musa Castano PCP [address], [address], [place] States (Office): : [facility] 07/09/2021 - 07/13/2021 Nan Torres Attending Physician [address], [address], [place] (Office): [facility] 07/09/2021 - 07/13/2021 Immunizations Immunization Status Vaccine Details Vaccine Code CodeSystem Dontrell e Notes SARS-COV-2 (COVID-19) completed SARS-COV-2 (COVID-19) vaccine, mRNA, spike protein, LNP, preservative free, 10 mcg/0.2mL dose, francisco-sucrose formulation Step 2 of Multi-step with next step required 218 CVX created date: 07/09/2021 administered date: 09/28/2020 SARS-COV-2 (COVID-19) completed SARS-COV-2 (COVID-19) vaccine, mRNA, spike protein, LNP, preservative free, 10 mcg/0.2mL dose, francisco-sucrose formulation Step 1 of Multi-step with next step required 218 CVX created date: 07/09/2021 administered date: 09/11/2020 Mental Status Section Date Assessment Total Score Description 07/13/2021 BIMS 15 cognitively int act CAM 0 No delirium ind icated PHQ-9 02 minimal depress ion Problems Problem # Description Date of onset Resolved Date Code CodeSystem Concern Status 1 CHRONIC OBSTRUCTIVE PULMONARY DISEASE WITH (ACUTE) EXACERBATION 07/09/[address] active 2 CHRONIC RESPIRATORY FAILURE WITH HYPOXIA 07/09/[address] active 3 DEPENDENCE ON SUPPLEMENTAL OXYGEN 07/09/[address] active 4 DIFFICULTY IN WALKING, NOT ELSEWHERE CLASSIFIED 07/09/[address] active 5 ESSENTIAL (PRIMARY) HYPERTENSION 07/09/[address] active 6 GASTRO-ESOPHAGEAL REFLUX DISEASE WITHOUT ESOPHAGITIS 07/09/[address] active 7 HYPERLIPIDEMIA, UNSPECIFIED 07/09/[address] active 8 LOW BACK PAIN, UNSPECIFIED 07/09/[address] active 9 MAJOR DEPRESSIVE DISORDER, SINGLE EPISODE, UNSPECIFIED 07/09/[address] active 10 TYPE 2 DIABETES MELLITUS WITHOUT COMPLICATIONS 07/09/[address] active 11 UNILATERAL PRIMARY OSTEOARTHRITIS, LEFT KNEE 07/09/[address] active Reason for Referral No Reasons for Referral Entered Social History Social History Observation Description Start Date End Date Code Code System Current Smoking Status Tobacco smoking consumption unknown 499776377 SNOMED CT Sex Assigned At Female 1950 [address]-3 [facility] Vital Signs Code Code System Vitals Name Values and Units Timing Information 9279-1 LOINC Respiratory Rate Value=18.0 Units=/m in 07/13/2021 87181-3 LOINC O2 % BldC Oximetry Value=97.0 Units= % 07/13/2021 60434-1 LOINC Pain Level Value=2.0 07/13/2021 8462-4 [facility] Blood Pressure-Diastolic Value=57 Un its=mmHg 07/12/2021 8480-6 [facility] Blood Pressure-Systolic Hrdlp=762 Un its=mmHg 07/12/2021 8867-4 [facility] Heart rate Value=70.0 Units=/min 8310-5 [facility] Body Temperature Value=97.5 Units=?? F 07/12/2021 2339-0 [facility] Blood Sugar Jvkmo=596.0 Units=mg/dL 07/12/2021 8302-2 [facility] Height Value=57.0 Units=Inches 07/09/2021 82361-5 [facility] Weight Ubhjd=108.2 Units=Lbs
--- OUTSIDE RECORDS SUMMARY | 2024-10-20 16:31 | XMS_ITS | Patient Health Record ---
Author Organization [facility] Address [address] [place] [address] Care Team Providers Care Break Out Man Name Role Phone ChrisShelbi Primary Care Provider Unavailabl e Rajwinder Johns Unavailable [phone] Clinical, Operations Unavailable Unavailable Blanka Hernández Unavailable [phone] Mckenna Florentino Unavailable [phone] Allergies No Known Allergies Results Component Value Reference Range Notes Urinalysis, Complete-[id number] Reviewed date:04/05/2024 01:13:47 PM Interpretation: Performing Lab:[facility], [address] [facility], [place], Phone - [phone], Director - Deb Notes/Report: Clinical Information:SRC: SRC: Clinical Information:SRC: SRC: Specific Nursery 1.010 1.005-1.030 pH 7.5 5.0-7.5 Urine-Color Yellow Yellow Appearance Clear Clear WBC Esterase 2+ Negative Protein Negative Negative/Trace Glucose Negative Negative Ketones Negative Negative Occult Blood Negative Negative Bilirubin Negative Negative Urobilinogen,Semi-Qn 0.2 0.2-1.0 mg/dL Nitrite, Urine Negative Negative Microscopic Examination See below: Micr oscopic was indicated and was performed. WBC 0-5 0 - 5 /hpf RBC None seen 0 - 2 /hpf Epithelial Cells (non renal) 0-10 0 - 10 /hpf Casts None seen None seen /lpf Bacteria None seen None seen/Few Urine Culture, Routine-[id number] Reviewed date:04/06/2024 12:04:52 PM Interpretation: Performing Lab:[facility], [address], [address], [place], Phone - [phone], Director - Terry Notes/Report: Clinical Information:SRC:UC SRC:AAYUSH Clinical Information:SRC:UC SRC:UC Urine Culture, Routine Final report Result 1 Mixed urogenital rhina 50,000-100,000 colony forming units per mL Reason For Referral Reason REHAB (1) [address] Wheelchair with cushion and foot rests Height/Weight: 5' 220lbs 13 month rent-to-own Prescriber: Shelbi Beth Diagnosis 1 COPD (chronic obstru ctive pulmonary disease) (J44.9) Referral Organization [facility] Referring Provider First Name Lazara Referring Provider Last Name Jacki Referring Provider Speciality Physical T herapist Referred Provider [employer] General Notes Mimi Root 10:14:17 AM > If unable to process this request, please contact Mimi Root [phone] EXT [phone] [email or web address] Clinical Notes see doc [id number] [place] [facility] [place] Priority Routine Medications Medication SIG (Take, Route, Frequency, Duration) Notes Start Date End Date Status Albuterol Sulfate (2.5 MG/3ML) 0.083% 3 mL as needed Inhalation every 6 hrs PRN only Active Lisinopril 10 MG 1 tablet Orally Once a day Active Albuterol Sulfate HFA 108 (90 Base) MCG/ACT 1 puff as needed Inhalation every 4 hrs PRN Active Insulin Aspart FlexPen 100 UNIT/ML as directed Subcutaneous Sliding scale TID Active Multivitamin - 1 tablet Orally Once a day Not-Taking Ipratropium-Albuterol 0.5-2.5 (3) MG/3ML 3 mL as needed Inhalation every [address] Frederick Active Vitamin D3 125 MCG (5000 UT) 1 capsule Orally Once a day DC per member Not-Taking buPROPion HCl ER (SR) 150 MG 1 tablet in the morning Orally Once a day Active traZODone HCl 150 MG 1 tablet at bedtime Orally Once a day Active Atorvastatin Calcium 80 MG 1 tablet Orally Once a day Active rOPINIRole HCl 2 MG 1 tablet Orally Twice a day Active Citalopram Hydrobromide 10 MG 1 tablet Orally Once a day Active Montelukast Sodium 10 MG 1 tablet Orally Once a day Active Tylenol Extra Strength 500 MG 1 tablet as needed Orally every 6 hrs Active Aspirin 81 MG 1 tablet Orally Once a day Active Oxygen Concentrator 2-3 liters 2lPM as needed to maintain 2 sat 88-92% continuous 2L PRN Active Gabapentin 300 MG as directed Orally three times a day Active Cyclobenzaprine HCl 10 MG 1 tablet at bedtime as needed Orally Once a day DC per member Not-Taking hydrOXYzine HCl 25 MG as directed Orally twice a day PRN anxiety Active Lantus SoloStar 100 UNIT/ML 30 units as directed Subcutaneous daily Not-Taking Dulaglutide 3 MG/0.5ML as directed Subcutaneous weekly Active amLODIPine Besylate 5 MG 1 tablet Orally Once a day Not-Taking Problems Problem Type SNOMED Code ICD Code Onset Dates Problem Status W/U Status Risk Notes Problem 50960665 Dysuria (R30.0) Inactive confirmed Problem Type II diabetes mellitus without complication (647506055) Diabetes (E11.9) Inactive confirmed Problem 62845413 ALDO on CPAP (G47.33) Active confirmed Problem Chest pain (20809009) Chest pain (R07.9) Problem resolved confirmed Problem Heart failure (05391431) Heart failure, unspecified (I50.9) Inactive confirmed Problem Hypertension (14635894) HTN (hypertension) (I10) Inactive confirmed Problem 703066747 COPD exacerbatio n (J44.1) Problem resolved confirmed Problem COPD - Chronic obstructive pulmonary disease (93837098) COPD (chronic obstructive pulmonary disease) (J44.9) Active confirmed Problem Dyspnea (742161716) Dyspnea (R06.00) Inactive confirmed Problem 54392600 Mixed incontinence (N39.46) Active confirmed Problem 22340245 RACHNA (generalized anxiety disorder) (F41.1) Active confirmed Problem Chronic kidney disease (984762160) CKD (chronic kidney disease) (N18.9) Inactive confirmed Problem Polyneuropathy (40969200) Polyneuropathy (G62.9) Inactive confirmed Problem Moderate recurrent major depression (65760358) Major depressive disorder, recurrent episode, moderate (F33.1) Active confirmed Problem 15006976 Polymyalgia rheumatica (M35.3) Active confirmed Problem 29823066 Restless legs syndrome (RLS) (G25.81) Active confirmed Problem 753375544769 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) Active confirmed Problem 39509950 Dementia, unspecified, without behavioral disturbance (F03.90) Active confirmed Problem Chronic respiratory failure (44770468) Chronic respiratory failure with hypoxia (J96.11) Active confirmed Problem 301470848 Recurrent UTI (urinary tract infection) (N39.0) Active confirmed Problem 117311011815752 Unilateral primary osteoarthritis, left knee (M17.12) Active confirmed Problem 24566248 Extrapyramidal disorder (G25.9) Active confirmed Problem 103959133058137 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) Active confirmed Problem Panlobular emphysema (1798085) Panlobular emphysema (J43.1) Active confirmed Problem 6216475 Displaced trimalleolar fracture of right lower leg, subsequent encounter for closed fracture with routine healing (S82.851D) Active confirmed Problem 530473051 Arthritis, low back (M47.819) Active confirmed Problem 65302997 Other chronic pain (G89.29) Active confirmed Problem 401354075 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 (Z79.4) Active confirmed Problem 102096401 Chronic diastoli c (congestive) heart failure (I50.32) Active confirmed Problem 72084603753443 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 kidney disease, or unspecified chronic kidney disease (I13.0) Active confirmed Problem 306832165 Type 2 diabetes mellitus with diabetic neuropathy, unspecified (E11.40) Active confirmed Problem 118371550 Morbid (severe) obesity due to excess calories (E66.01) Active confirmed Problem 994964917 Skin abrasion (T14.8XXA) Active confirmed Problem 552766879 Uncontrolled typ e 2 diabetes mellitus with hyperglycemia (E11.65) Active confirmed Problem 575395423 COVID-19 virus infection (U07.1) Problem resolved confirmed Problem 908757998 COVID-19 (U07.1) Inactive confirmed Problem 712353282 Chronic kidney disease, stage 3b (N18.32) Active confirmed Problem 338815432 Stage 3a chronic kidney disease (N18.31) Inactive confirmed Problem 139236073 Body mass index [BMI] 40.0-44.9, adult (Z68.41) Active confirmed Problem 227565239 Long-term curren t use of injectable noninsulin antidiabetic medication (Z79.85) Active confirmed Problem 29925912 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 [address] [place] [address] 11/03/2023 Blanka Hernández [facility] [address] [place] [address] 11/20/2023 Mckenna Florentino [facility] [address] [place] [address] 04/04/2024 Rajwinder Johns [facility] [address] [place] [address] 09/26/2024 Rajwinder Johns [facility] [address] [place] [address] 10/10/2024 Rajwinder Johns [facility] [address] [place] [address] 10/10/2024 Rajwinder Johns [facility] [address] [place] [address] 02/24/2024 Rajwinder Johns 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 kidney disease, or unspecified chronic kidney disease I13.0 ; Chronic diastolic (congestive) heart failure I50.32 ; Stage 3a chronic kidney disease N18.31 ; COPD (chronic obstructive pulmonary disease) J44.9 ; Type 2 diabetes mellitus with diabetic neuropathy, unspecified E11.40 ; prison (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 insulin Z79.4 ; Major depressive disorder, recurrent episode, moderate F33.1 ; Mixed incontinence N39.46 ; Recurrent UTI (urinary tract infection) N39.0 ; RACHNA (generalized anxiety disorder) F41.1 ; ALDO on CPAP G47.33 ; 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 ; 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 ; S/P eye surgery Z98.890 ; Long-term current use of injectable noninsulin antidiabetic medication Z79.85 and Restless legs syndrome (RLS) G25.[address] [address] 03/07/2024 Rajwinder Johns COVID-19 virus infection U07.[address] [address] 02/19/2024 Rajwinder Johns COPD (chronic obstructive pulmonary disease) J44.9 ; Mixed incontinence N39.46 ; Uncontrolled type 2 diabetes mellitus with hyperglycemia E11.65 ; 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 Z79.4 ; COPD exacerbation J44.1 and Recurrent UTI (urinary tract infection) N39.[address] [address] 11/26/2023 Rajwinder Johns COPD (chronic obstructive pulmonary disease) J44.9 ; COPD exacerbation J44.1 ; Acute cystitis without hematuria N30.00 ; Mixed incontinence N39.46 ; Uncontrolled type 2 diabetes mellitus with hyperglycemia E11.65 and prison (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 insulin Z79.[address] [address] 12/09/2023 Rajwinder Johns COPD (chronic obstructive pulmonary disease) J44.9 ; COPD exacerbation J44.1 ; Acute cystitis without hematuria N30.00 ; Mixed incontinence N39.46 ; Uncontrolled type 2 diabetes mellitus with hyperglycemia E11.65 ; 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 Z79.4 ; Major depressive disorder, recurrent episode, moderate F33.1 and RACHNA (generalized anxiety disorder) F41.[address] [address] 12/16/2023 Rajwinder Johns COPD (chronic obstructive pulmonary disease) J44.9 ; Mixed incontinence N39.46 ; Uncontrolled type 2 diabetes mellitus with hyperglycemia E11.65 ; 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 Z79.4 ; Major depressive disorder, recurrent episode, moderate F33.1 and RACHNA (generalized anxiety disorder) F41.[address] [address] 06/24/2024 Rajwinder Johns 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 kidney disease, or unspecified chronic kidney disease I13.0 ; Chronic diastolic (congestive) heart failure I50.32 ; Stage 3a chronic kidney disease N18.31 ; COPD (chronic obstructive pulmonary disease) J44.9 ; Type 2 diabetes mellitus with diabetic neuropathy, unspecified E11.40 ; prison (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 insulin Z79.4 ; Major depressive disorder, recurrent episode, moderate F33.1 ; Mixed incontinence N39.46 ; Recurrent UTI (urinary tract infection) N39.0 ; RACHNA (generalized anxiety disorder) F41.1 ; ALDO on CPAP G47.33 ; 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 ; 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 ; Long-term current use of injectable noninsulin antidiabetic medication Z79.85 ; Restless legs syndrome (RLS) G25.81 ; Polymyalgia rheumatica M35.3 ; Uncontrolled type 2 diabetes mellitus with hyperglycemia E11.65 ; Extrapyramidal disorder G25.9 ; Panlobular emphysema J43.1 ; Chronic respiratory failure with hypoxia J96.11 ; Chronic kidney disease, stage 3b N18.32 ; Dementia, unspecified, without behavioral disturbance F03.90 ; Unilateral primary osteoarthritis, left knee M17.12 ; Displaced trimalleolar fracture of right lower leg, subsequent encounter for closed fracture with routine healing S82.851D ; Arthritis, low back M47.819 ; 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 and Other chronic pain G89.29 [place] [id number] [address] [address] 06/30/2024 Rajwinder Johns COPD (chronic obstructive pulmonary disease) J44.9 and RACHNA (generalized anxiety disorder) F41.[address] [address] 04/15/2024 Rajwinder Johns Closed displaced trimalleolar fracture of right ankle, sequela S82.851S [address] [address] 04/07/2024 Operations Clinical COPD (chronic obstructive pulmonary disease) J44.9 ; 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 kidney disease, or unspecified chronic kidney disease I13.0 ; Chronic diastolic (congestive) heart failure I50.32 ; Stage 3a chronic kidney disease N18.31 ; Uncontrolled type 2 diabetes mellitus with hyperglycemia E11.65 ; prison (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 insulin Z79.4 ; Type 2 diabetes mellitus with diabetic neuropathy, unspecified E11.40 ; Major depressive disorder, recurrent episode, moderate F33.1 ; Mixed incontinence N39.46 ; Restless legs syndrome (RLS) G25.81 ; RACHNA (generalized anxiety disorder) F41.1 ; ALDO on CPAP G47.33 ; Extrapyramidal disorder G25.9 ; Recurrent UTI (urinary tract infection) N39.0 ; COPD exacerbation J44.1 ; 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 ; S/P eye surgery Z98.890 ; Long-term current use of injectable noninsulin antidiabetic medication Z79.85 ; COVID-19 virus infection U07.1 ; Dysuria R30.0 ; Heart failure, unspecified I50.9 ; Panlobular emphysema J43.1 ; Respiratory failure, unspecified with hypoxia J96.91 ; Chronic respiratory failure with hypoxia J96.11 ; Chronic kidney disease, stage 3b N18.32 ; Dementia, unspecified, without behavioral disturbance F03.90 ; Polyneuropathy, unspecified G62.9 ; Unilateral primary osteoarthritis, left knee M17.12 and Polymyalgia rheumatica M35.[address] [address] 10/14/2024 Rajwinder Johns [address] [address] 12/23/2023 Rajwinder Johns COPD (chronic obstructive pulmonary disease) J44.9 ; Mixed incontinence N39.46 ; Uncontrolled type 2 diabetes mellitus with hyperglycemia E11.65 ; prison (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 insulin Z79.4 ; Major depressive disorder, recurrent episode, moderate F33.1 and RACHNA (generalized anxiety disorder) F41.1 [facility] [address] [place] [address] 01/29/2024 Rajwinder Johns COPD (chronic obstructive pulmonary disease) J44.9 ; Mixed incontinence N39.46 ; Uncontrolled type 2 diabetes mellitus with hyperglycemia E11.65 ; 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 Z79.4 ; Major depressive disorder, recurrent episode, moderate F33.1 and RACHNA (generalized anxiety disorder) F41.[address] [address] 07/05/2024 Rajwinder Johns COPD (chronic obstructive pulmonary disease) J44.9 ; RACHNA (generalized anxiety disorder) F41.1 and 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 [address] 07/07/2024 Rajwinder Johns 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 kidney disease, or unspecified chronic kidney disease I13.0 ; Chronic diastolic (congestive) heart failure I50.32 ; Stage 3a chronic kidney disease N18.31 ; COPD (chronic obstructive pulmonary disease) J44.9 ; Type 2 diabetes mellitus with diabetic neuropathy, unspecified E11.40 ; prison (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 insulin Z79.4 ; Major depressive disorder, recurrent episode, moderate F33.1 ; Mixed incontinence N39.46 ; Recurrent UTI (urinary tract infection) N39.0 ; RACHNA (generalized anxiety disorder) F41.1 ; ALDO on CPAP G47.33 ; 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 ; 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 ; Long-term current use of injectable noninsulin antidiabetic medication Z79.85 ; Restless legs syndrome (RLS) G25.81 ; Polymyalgia rheumatica M35.3 ; Uncontrolled type 2 diabetes mellitus with hyperglycemia E11.65 ; Extrapyramidal disorder G25.9 ; Panlobular emphysema J43.1 ; Chronic respiratory failure with hypoxia J96.11 ; Chronic kidney disease, stage 3b N18.32 ; Dementia, unspecified, without behavioral disturbance F03.90 ; Unilateral primary osteoarthritis, left knee M17.12 ; Displaced trimalleolar fracture of right lower leg, subsequent encounter for closed fracture with routine healing S82.851D ; Arthritis, low back M47.819 ; 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 and Other chronic pain G89.[address] [address] 07/15/2024 Rajwinder Johns COPD (chronic obstructive pulmonary disease) J44.9 ; RACHNA (generalized anxiety disorder) F41.1 ; 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 ; Type 2 diabetes mellitus with diabetic neuropathy, unspecified E11.40 ; Uncontrolled type 2 diabetes mellitus with hyperglycemia E11.65 ; Chronic kidney disease, stage 3b N18.32 ; Morbid (severe) obesity due to excess calories E66.01 ; Body mass index [BMI] 40.0-44.9, adult Z68.41 ; prison (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 insulin Z79.4 ; Long-term current use of injectable noninsulin antidiabetic medication Z79.85 and 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 kidney disease, or unspecified chronic kidney disease I13.[address] [address] 07/22/2024 Rajwinder Johns COPD (chronic obstructive pulmonary disease) J44.9 ; RACHNA (generalized anxiety disorder) F41.1 ; 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 ; Type 2 diabetes mellitus with diabetic neuropathy, unspecified E11.40 ; Uncontrolled type 2 diabetes mellitus with hyperglycemia E11.65 ; Chronic kidney disease, stage 3b N18.32 ; Morbid (severe) obesity due to excess calories E66.01 ; Body mass index [BMI] 40.0-44.9, adult Z68.41 ; prison (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 insulin Z79.4 ; Long-term current use of injectable noninsulin antidiabetic medication Z79.85 and 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 kidney disease, or unspecified chronic kidney disease I13.[address] [address] 07/28/2024 Rajwinder Johns COPD (chronic obstructive pulmonary disease) J44.9 ; RACHNA (generalized anxiety disorder) F41.1 ; 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 ; Type 2 diabetes mellitus with diabetic neuropathy, unspecified E11.40 ; Uncontrolled type 2 diabetes mellitus with hyperglycemia E11.65 ; Chronic kidney disease, stage 3b N18.32 ; Morbid (severe) obesity due to excess calories E66.01 ; Body mass index [BMI] 40.0-44.9, adult Z68.41 ; prison (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 insulin Z79.4 ; Long-term current use of injectable noninsulin antidiabetic medication Z79.85 and 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 kidney disease, or unspecified chronic kidney disease I13.[address] [address] 08/02/2024 Rajwinder Nat COPD (chronic obstructive pulmonary disease) J44.9 ; RACHNA (generalized anxiety disorder) F41.1 ; 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 ; Type 2 diabetes mellitus with diabetic neuropathy, unspecified E11.40 ; Uncontrolled type 2 diabetes mellitus with hyperglycemia E11.65 ; Chronic kidney disease, stage 3b N18.32 ; Morbid (severe) obesity due to excess calories E66.01 ; Body mass index [BMI] 40.0-44.9, adult Z68.41 ; prison (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 insulin Z79.4 ; Long-term current use of injectable noninsulin antidiabetic medication Z79.85 and 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 kidney disease, or unspecified chronic kidney disease I13.[address] [address] 08/08/2024 Rajwinder Nat COPD (chronic obstructive pulmonary disease) J44.9 ; RACHNA (generalized anxiety disorder) F41.1 ; 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 ; Type 2 diabetes mellitus with diabetic neuropathy, unspecified E11.40 ; Uncontrolled type 2 diabetes mellitus with hyperglycemia E11.65 ; Chronic kidney disease, stage 3b N18.32 ; Morbid (severe) obesity due to excess calories E66.01 ; Body mass index [BMI] 40.0-44.9, adult Z68.41 ; prison (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 insulin Z79.4 ; Long-term current use of injectable noninsulin antidiabetic medication Z79.85 ; 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 kidney disease, or unspecified chronic kidney disease I13.0 ; Other chronic pain G89.29 ; Unilateral primary osteoarthritis, left knee M17.12 ; Arthritis, low back M47.819 and Displaced trimalleolar fracture of right lower leg, subsequent encounter for closed fracture with routine healing S82.851D [address] [place] [address] 08/16/2024 Rajwidner Johns COPD (chronic obstructive pulmonary disease) J44.9 ; RACHNA (generalized anxiety disorder) F41.1 ; 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 ; Type 2 diabetes mellitus with diabetic neuropathy, unspecified E11.40 ; Uncontrolled type 2 diabetes mellitus with hyperglycemia E11.65 ; Chronic kidney disease, stage 3b N18.32 ; Morbid (severe) obesity due to excess calories E66.01 ; Body mass index [BMI] 40.0-44.9, adult Z68.41 ; 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 Z79.4 ; Long-term current use of injectable noninsulin antidiabetic medication Z79.85 ; 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 kidney disease, or unspecified chronic kidney disease I13.0 ; Other chronic pain G89.29 ; Unilateral primary osteoarthritis, left knee M17.12 ; Arthritis, low back M47.819 and Displaced trimalleolar fracture of right lower leg, subsequent encounter for closed fracture with routine healing S82.851D [address] [place] [address] 08/23/2024 Rajwinder Johns COPD (chronic obstructive pulmonary disease) J44.9 ; RACHNA (generalized anxiety disorder) F41.1 ; 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 ; Type 2 diabetes mellitus with diabetic neuropathy, unspecified E11.40 ; Uncontrolled type 2 diabetes mellitus with hyperglycemia E11.65 ; Chronic kidney disease, stage 3b N18.32 ; Morbid (severe) obesity due to excess calories E66.01 ; Body mass index [BMI] 40.0-44.9, adult Z68.41 ; prison (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 insulin Z79.4 ; Long-term current use of injectable noninsulin antidiabetic medication Z79.85 ; 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 kidney disease, or unspecified chronic kidney disease I13.0 ; Other chronic pain G89.29 ; Unilateral primary osteoarthritis, left knee M17.12 ; Arthritis, low back M47.819 and Displaced trimalleolar fracture of right lower leg, subsequent encounter for closed fracture with routine healing S82.851D [address] [place] [address] 08/30/2024 Rajwinder Johns COPD (chronic obstructive pulmonary disease) J44.9 ; RACHNA (generalized anxiety disorder) F41.1 ; 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 ; Type 2 diabetes mellitus with diabetic neuropathy, unspecified E11.40 ; Uncontrolled type 2 diabetes mellitus with hyperglycemia E11.65 ; Chronic kidney disease, stage 3b N18.32 ; Morbid (severe) obesity due to excess calories E66.01 ; Body mass index [BMI] 40.0-44.9, adult Z68.41 ; prison (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 insulin Z79.4 ; Long-term current use of injectable noninsulin antidiabetic medication Z79.85 ; 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 kidney disease, or unspecified chronic kidney disease I13.0 ; Other chronic pain G89.29 ; Unilateral primary osteoarthritis, left knee M17.12 ; Arthritis, low back M47.819 ; Displaced trimalleolar fracture of right lower leg, subsequent encounter for closed fracture with routine healing S82.851D and Skin abrasion T14.8XXA [address] [place] [address] 09/01/2024 Rajwinder Johns RACHNA (generalized anxiety disorder) F41.1 ; Other chronic pain G89.29 ; Unilateral primary osteoarthritis, left knee M17.12 ; Arthritis, low back M47.819 ; Displaced trimalleolar fracture of right lower leg, subsequent encounter for closed fracture with routine healing S82.851D ; Skin abrasion T14.8XXA and Major depressive disorder, recurrent episode, moderate F33.1 [facility] [address] [place] [address] 09/08/2024 Rajwinder Johns RACHNA (generalized anxiety disorder) F41.1 ; Other chronic pain G89.29 ; Unilateral primary osteoarthritis, left knee M17.12 ; Arthritis, low back M47.819 ; Displaced trimalleolar fracture of right lower leg, subsequent encounter for closed fracture with routine healing S82.851D ; Skin abrasion T14.8XXA and Major depressive disorder, recurrent episode, moderate F33.[address] [address] 09/15/2024 Rajwinder Johns RACHNA (generalized anxiety disorder) F41.1 ; Other chronic pain G89.29 ; Unilateral primary osteoarthritis, left knee M17.12 ; Arthritis, low back M47.819 ; Displaced trimalleolar fracture of right lower leg, subsequent encounter for closed fracture with routine healing S82.851D ; Skin abrasion T14.8XXA ; Major depressive disorder, recurrent episode, moderate F33.1 ; Type 2 diabetes mellitus with diabetic neuropathy, unspecified E11.40 ; Uncontrolled type 2 diabetes mellitus with hyperglycemia E11.65 ; 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 kidney disease, or unspecified chronic kidney disease I13.0 ; Chronic diastolic (congestive) heart failure I50.32 ; COPD (chronic obstructive pulmonary disease) J44.9 ; 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 ; prison (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 insulin Z79.4 ; Long-term current use of injectable noninsulin antidiabetic medication Z79.85 ; Chronic kidney disease, stage 3b N18.32 and Morbid (severe) obesity due to excess calories E66.[address] [address] 09/22/2024 Rajwinder Johns RACHNA (generalized anxiety disorder) F41.1 ; Other chronic pain G89.29 ; Unilateral primary osteoarthritis, left knee M17.12 ; Arthritis, low back M47.819 ; Displaced trimalleolar fracture of right lower leg, subsequent encounter for closed fracture with routine healing S82.851D ; Skin abrasion T14.8XXA ; Major depressive disorder, recurrent episode, moderate F33.1 ; Type 2 diabetes mellitus with diabetic neuropathy, unspecified E11.40 ; Uncontrolled type 2 diabetes mellitus with hyperglycemia E11.65 ; 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 kidney disease, or unspecified chronic kidney disease I13.0 ; Chronic diastolic (congestive) heart failure I50.32 ; COPD (chronic obstructive pulmonary disease) J44.9 ; 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 ; prison (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 insulin Z79.4 ; Long-term current use of injectable noninsulin antidiabetic medication Z79.85 ; Chronic kidney disease, stage 3b N18.32 and Morbid (severe) obesity due to excess calories E66.[address] [address] 09/29/2024 Rajwinder Johns RACHNA (generalized anxiety disorder) F41.1 ; Other chronic pain G89.29 ; Unilateral primary osteoarthritis, left knee M17.12 ; Arthritis, low back M47.819 ; Displaced trimalleolar fracture of right lower leg, subsequent encounter for closed fracture with routine healing S82.851D ; Skin abrasion T14.8XXA ; Major depressive disorder, recurrent episode, moderate F33.1 ; Type 2 diabetes mellitus with diabetic neuropathy, unspecified E11.40 ; Uncontrolled type 2 diabetes mellitus with hyperglycemia E11.65 ; 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 kidney disease, or unspecified chronic kidney disease I13.0 ; Chronic diastolic (congestive) heart failure I50.32 ; COPD (chronic obstructive pulmonary disease) J44.9 ; 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 [address] [place] [address] 10/07/2024 Rajwinder Johns RACHNA (generalized anxiety disorder) F41.1 ; Other chronic pain G89.29 ; Unilateral primary osteoarthritis, left knee M17.12 ; Arthritis, low back M47.819 ; Displaced trimalleolar fracture of right lower leg, subsequent encounter for closed fracture with routine healing S82.851D ; Skin abrasion T14.8XXA ; Major depressive disorder, recurrent episode, moderate F33.1 ; Type 2 diabetes mellitus with diabetic neuropathy, unspecified E11.40 ; Uncontrolled type 2 diabetes mellitus with hyperglycemia E11.65 ; 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 kidney disease, or unspecified chronic kidney disease I13.0 ; Chronic diastolic (congestive) heart failure I50.32 ; COPD (chronic obstructive pulmonary disease) J44.9 ; 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 ; prison (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 insulin Z79.4 ; Long-term current use of injectable noninsulin antidiabetic medication Z79.85 ; Chronic kidney disease, stage 3b N18.32 and Morbid (severe) obesity due to excess calories E66.[address] [address] 04/27/2024 Rajwinder Johns Closed displaced trimalleolar fracture of right ankle, sequela S82.851S [address] [address] 06/06/2024 Rajwinder Johns Displaced trimalleolar fracture of right lower leg, subsequent encounter for closed fracture with routine healing S82.851D [address] [address] 03/10/2024 Rajwinder Johns COPD (chronic obstructive pulmonary disease) J44.9 ; COPD exacerbation J44.1 ; COVID-19 virus infection U07.1 ; Uncontrolled type 2 diabetes mellitus with hyperglycemia E11.65 ; Type 2 diabetes mellitus with diabetic neuropathy, unspecified E11.40 ; Long-term current use of injectable noninsulin antidiabetic medication Z79.85 and prison (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 insulin Z79.[address] [address] 03/25/2024 Rajwinder Johns 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 kidney disease, or unspecified chronic kidney disease I13.0 ; Chronic diastolic (congestive) heart failure I50.32 ; Stage 3a chronic kidney disease N18.31 ; COPD (chronic obstructive pulmonary disease) J44.9 ; Type 2 diabetes mellitus with diabetic neuropathy, unspecified E11.40 ; 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 Z79.4 ; Major depressive disorder, recurrent episode, moderate F33.1 ; Mixed incontinence N39.46 ; Recurrent UTI (urinary tract infection) N39.0 ; RACHNA (generalized anxiety disorder) F41.1 ; ALDO on CPAP G47.33 ; 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 ; 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 ; S/P eye surgery Z98.890 ; Long-term current use of injectable noninsulin antidiabetic medication Z79.85 ; Restless legs syndrome (RLS) G25.81 and Polymyalgia rheumatica M35.[address] [address] 04/04/2024 Rajwinder Johns Uncontrolled type 2 diabetes mellitus with hyperglycemia E11.65 ; Type 2 diabetes mellitus with diabetic neuropathy, unspecified E11.40 ; Mixed incontinence N39.46 ; Recurrent UTI (urinary tract infection) N39.0 and Dysuria R30.[address] [address] 03/08/2024 Rajwinder Johns COPD (chronic obstructive pulmonary disease) J44.9 ; COPD exacerbation J44.1 and COVID-19 virus infection U07.1 Assessments Encounter Date Diagnosis (ICD Code) Assessment Notes Treatment Notes Treatment Clinical Notes Section Notes 11/26/2023 COPD (chronic obstructive pulmonary disease) (ICD-10 - J44.9) 12/09/2023 COPD (chronic obstructive pulmonary disease) (ICD-10 - J44.9) 12/16/2023 COPD (chronic obstructive pulmonary disease) (ICD-10 - J44.9) Chronic/Stable Oxygen dependent - 100% adherence - Member appears stable during visit without sxs of exacerbation - Continue medications and inhalers as prescribed - Educated member on importance of O2 use as prescribed - Avoid triggers as possible - Monitor for increased dyspnea or productive cough as first signs of exacerbation - Report any changes in symptoms or worsening SOB to providers/PCP/pulm - Encourage healthy diet to minimize risk of unwanted weight loss Advised to schedule follow up with PCP and independent film maker 12/23/2023 COPD (chronic obstructive pulmonary disease) (ICD-10 - J44.9) Chronic/Stable Oxygen dependent - 100% adherence - Member appears stable during visit without sxs of exacerbation - Continue medications and inhalers as prescribed - Educated member on importance of O2 use as prescribed - Avoid triggers as possible - Monitor for increased dyspnea or productive cough as first signs of exacerbation - Report any changes in symptoms or worsening SOB to providers/PCP/pulm - Encourage healthy diet to minimize risk of unwanted weight loss Advised to schedule follow up with PCP and independent film maker 02/24/2024 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 kidney disease, or unspecified chronic kidney disease (ICD-10 - I13.0) I50.32 Chronic diastolic HF N18.31 Stage 3a CKD Chronic/Stable - worsening kidney functions as in HPI - Continue ongoing DM mgmt to help prevent progression of disease - Continue ongoing HTN mgmt to help prevent progression of disease - Continue ongoing dietary control and healthy eating choices - DASH diet, low sodium - Avoid nephrotoxic meds where possible and renally adjust meds where clinically appropriate - F/U with PCP/nephro for ongoing monitoring/mgmt 01/29/2024 COPD (chronic obstructive pulmonary disease) (ICD-10 - J44.9) Chronic/Stable Oxygen dependent - 100% adherence - Member appears stable during visit without sxs of exacerbation - Continue medications and inhalers as prescribed - Educated member on importance of O2 use as prescribed - Avoid triggers as possible - Monitor for increased dyspnea or productive cough as first signs of exacerbation - Report any changes in symptoms or worsening SOB to providers/PCP/pulm - Encourage healthy diet to minimize risk of unwanted weight loss Advised to continue routine follow up with PCP and independent film maker 02/19/2024 COPD (chronic obstructive pulmonary disease) (ICD-10 - J44.9) J44.1 COPD exacerbation Chronic/Resolved Oxygen dependent - 100% adherence - Member appears stable during visit without sxs of exacerbation - Continue medications and inhalers as prescribed - Educated member on importance of O2 use as prescribed - Avoid triggers as possible - Monitor for increased dyspnea or productive cough as first signs of exacerbation - Report any changes in symptoms or worsening SOB to providers/PCP/pulm - Encourage healthy diet to minimize risk of unwanted weight loss Advised to continue routine follow up with PCP (02/24/2024) and independent film maker 03/08/2024 COPD (chronic obstructive pulmonary disease) (ICD-10 - J44.9) 03/07/2024 COVID-19 virus infection (ICD-10 - U07.1) Acute/Stable No s/s of respiratory distress Continue to wear oxygen and use CPAP as prescribed Continue tessalon perles and albuterol inhaler as prescribed Encouraged increased fluids, warm fluids, humidified air Educated on use of acetaminophen for fever and boday aches as needed. Educated on use of pulse oximeter and left one for patient to use; advised to report pulse oximetry of <92 Call [facility] for new sx's, questions or urgent needs - reminded of business hours; may use [facility] during off hours Counseled to seek ED eval for chest pain, dyspnea, syncope, high fever 04/04/2024 Uncontrolled type 2 diabetes mellitus with hyperglycemia (ICD-10 - E11.65) 04/07/2024 COPD (chronic obstructive pulmonary disease) (ICD-10 - J44.9) Dx added from [facility] 03/25/2024 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 kidney disease, or unspecified chronic kidney disease (ICD-10 - I13.0) I50.32 Chronic diastolic HF N18.31 Stage 3a CKD Chronic/Stable - Continue ongoing DM mgmt to help prevent progression of disease - Continue ongoing HTN mgmt to help prevent progression of disease - Continue ongoing dietary control and healthy eating choices - DASH diet, low sodium - Avoid nephrotoxic meds where possible and renally adjust meds where clinically appropriate - F/U with PCP/nephro for ongoing monitoring/mgmt 04/15/2024 Closed displaced trimalleolar fracture of right ankle, sequela (ICD-10 - S82.851S) New fracture Short term rehab for pain management and PT and medical monitoring with ortho follow up Will continue to follow in SNF as needed 04/27/2024 Closed displaced trimalleolar fracture of right ankle, sequela (ICD-10 - S82.851S) New fracture Short term rehab for pain management and PT and medical monitoring with ortho follow up Ortho f/u scheduled for 04/29/2024 Family discharge meeting scheduled for 05/06/2024 Will continue to follow in SNF as needed 06/06/2024 Displaced trimalleolar fracture of right lower leg, subsequent encounter for closed fracture with routine healing (ICD-10 - S82.851D) Helaing fracture Conitnue short term rehab for pain management and PT and medical monitoring with ortho follow up Ortho f/u was 04/28 and 05/2024 Day pass from SNF to home for Thanksgiving dinner 06/08/2024 Anticpates d/c from SNF to son's home in mid June Will continue to follow in SNF as needed and upon discharge once notified 06/30/2024 COPD (chronic obstructive pulmonary disease) (ICD-10 - J44.9) Chronic/Resolving mild exacerbation - Member appears stable during visit without sxs of exacerbation today, o2 sat 98% - Has follow up with pulmologist later today - Dr. Frederick of [place] - Continue medications and inhalers as prescribed - Educated member on importance of O2 use as prescribed - Avoid triggers as possible - Monitor for increased dyspnea or productive cough as first signs of exacerbation - Report any changes in symptoms or worsening SOB to providers/PCP/pulm - Encourage healthy diet to minimize risk of unwanted weight loss 06/24/2024 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 kidney disease, or unspecified chronic kidney disease (ICD-10 - I13.0) I50.32 Chronic diastolic HF N18.32 Stage 3b CKD Chronic/Stable - Continue ongoing DM mgmt to help prevent progression of disease - Continue ongoing HTN mgmt to help prevent progression of disease - Continue ongoing dietary control and healthy eating choices - DASH diet, low sodium - Denies any chest pain, palpitations, SOB at rest, OBRIEN and in no acute distress - Continue medications as prescribed - Monitor weights and volume status for any sxs of weight gain or BLE edema/swelling as sxs of decompensation (report any weight gain of 2# in 24h or 5# in a week to provider) - Continue activity as tolerated - Observe fluid restrictions if advised by fire protection designer/PCP - Continue routine F/U with fire protection designer and PCP - Contact provider or call 911/utilize ER or [facility] if approp for acute cardiac concerns - Avoid nephrotoxic meds where possible, renally adjust meds if clinically appropriate - F/U with PCP/nephro for ongoing monitoring/mgmt 07/07/2024 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 kidney disease, or unspecified chronic kidney disease (ICD-10 - I13.0) I50.32 Chronic diastolic HF N18.32 Stage 3b CKD Chronic/Stable - Continue ongoing DM mgmt to help prevent progression of disease - Continue ongoing HTN mgmt to help prevent progression of disease - Continue ongoing dietary control and healthy eating choices - DASH diet, low sodium - Denies any chest pain, palpitations, SOB at rest, OBRIEN and in no acute distress - Continue medications as prescribed - Monitor weights and volume status for any sxs of weight gain or BLE edema/swelling as sxs of decompensation (report any weight gain of 2# in 24h or 5# in a week to provider) - Continue activity as tolerated - Observe fluid restrictions if advised by fire protection designer/PCP - Continue routine F/U with fire protection designer and PCP - Contact provider or call 911/utilize ER or [facility] if approp for acute cardiac concerns - Avoid nephrotoxic meds where possible, renally adjust meds if clinically appropriate - F/U with PCP/nephro for ongoing monitoring/mgmt 07/15/2024 COPD (chronic obstructive pulmonary disease) (ICD-10 - J44.9) Z99.81 O2 dependent Chronic/Stable - Member appears stable during visit without sxs of exacerbation today, o2 sat 98% - Had follow up with independent film maker - Continue medications and inhalers as prescribed - Educated member on importance of O2 use as prescribed - Avoid triggers as possible - Monitor for increased dyspnea or productive cough as first signs of exacerbation - Report any changes in symptoms or worsening SOB to providers/PCP/pulm - Encourage healthy diet to minimize risk of unwanted weight loss 07/22/2024 COPD (chronic obstructive pulmonary disease) (ICD-10 - J44.9) Z99.81 O2 dependent Chronic/Stable - Member appears stable during visit without sxs of exacerbation today, o2 sat 98% - Had follow up with independent film maker - Continue medications and inhalers as prescribed - Educated member on importance of O2 use as prescribed - Avoid triggers as possible - Monitor for increased dyspnea or productive cough as first signs of exacerbation - Report any changes in symptoms or worsening SOB to providers/PCP/pulm - Encourage healthy diet to minimize risk of unwanted weight loss 07/28/2024 COPD (chronic obstructive pulmonary disease) (ICD-10 - J44.9) Z99.81 O2 dependent Chronic/Stable - Member appears stable during visit without sxs of exacerbation today, o2 sat 98% - Had follow up with independent film maker - Continue medications and inhalers as prescribed - Educated member on importance of O2 use as prescribed - Avoid triggers as possible - Monitor for increased dyspnea or productive cough as first signs of exacerbation - Report any changes in symptoms or worsening SOB to providers/PCP/pulm - Encourage healthy diet to minimize risk of unwanted weight loss 08/02/2024 COPD (chronic obstructive pulmonary disease) (ICD-10 - J44.9) Z99.81 O2 dependent Chronic/Stable - Member appears stable during visit without sxs of exacerbation today, o2 sat 98% - Had follow up with independent film maker - Continue medications and inhalers as prescribed - Educated member on importance of O2 use as prescribed - Avoid triggers as possible - Monitor for increased dyspnea or productive cough as first signs of exacerbation - Report any changes in symptoms or worsening SOB to providers/PCP/pulm - Encourage healthy diet to minimize risk of unwanted weight loss 08/08/2024 COPD (chronic obstructive pulmonary disease) (ICD-10 - J44.9) Z99.81 O2 dependent Chronic/Stable - Member appears stable during visit without sxs of exacerbation today, o2 sat 98% - Had follow up with independent film maker - Continue medications and inhalers as prescribed - Educated member on importance of O2 use as prescribed - Avoid triggers as possible - Monitor for increased dyspnea or productive cough as first signs of exacerbation - Report any changes in symptoms or worsening SOB to providers/PCP/pulm - Encourage healthy diet to minimize risk of unwanted weight loss 08/16/2024 COPD (chronic obstructive pulmonary disease) (ICD-10 - J44.9) Z99.81 O2 dependent Chronic/Stable - Member appears stable during visit without sxs of exacerbation today, o2 sat 98% - Had follow up with independent film maker - Continue medications and inhalers as prescribed - Educated member on importance of O2 use as prescribed - Avoid triggers as possible - Monitor for increased dyspnea or productive cough as first signs of exacerbation - Report any changes in symptoms or worsening SOB to providers/PCP/pulm - Encourage healthy diet to minimize risk of unwanted weight loss 08/30/2024 COPD (chronic obstructive pulmonary disease) (ICD-10 - J44.9) Z99.81 O2 dependent Chronic/Stable - Member appears stable during visit without sxs of exacerbation today, o2 sat 97% on RA - Follows up with Dr. Frederick routinely; needs to reschedule appointment - Continue medications and inhalers as prescribed - Educated member on importance of O2 use as prescribed - Avoid triggers as possible - Monitor for increased dyspnea or productive cough as first signs of exacerbation - Report any changes in symptoms or worsening SOB to providers/PCP/pulm - Encourage healthy diet to minimize risk of unwanted weight loss 08/23/2024 COPD (chronic obstructive pulmonary disease) (ICD-10 - J44.9) Z99.81 O2 dependent Chronic/Stable - Member appears stable during visit without sxs of exacerbation today, o2 sat 97% on RA - Follows up with Dr. Frederick routinely; needs to reschedule appointment - Continue medications and inhalers as prescribed - Educated member on importance of O2 use as prescribed - Avoid triggers as possible - Monitor for increased dyspnea or productive cough as first signs of exacerbation - Report any changes in symptoms or worsening SOB to providers/PCP/pulm - Encourage healthy diet to minimize risk of unwanted weight loss 03/10/2024 COPD (chronic obstructive pulmonary disease) (ICD-10 - J44.9) 09/01/2024 RACHNA (generalized anxiety disorder) (ICD-10 - F41.1) F33.1 MDD, recurrent, moderate Chronic/Labile - PHQ9 and GAD7 as above -Reviewed nature of anxiety, which can range from excessive worry to incapacitating baseless fear. Discussed s/s of shelia and when to report. Denies self harm, insomnia, difficulty concentrating. -Reviewed nonmedical management techniques - breathing (8-7-4 technique), meditating, reading, listening to music. - Member considering assistance from [facility] - Follow up with PCP routinely, and prescriber - Angie Mccray 09/11/2024, advised to f/u on referral to community therapist - Reminded to call pcp or this [facility] for worsening anxiety or depression -Crisis info given and advised to seek ED eval for SI/HI/AVH 09/15/2024 RACHNA (generalized anxiety disorder) (ICD-10 - F41.1) F33.1 MDD, recurrent, moderate Chronic/Labile -Reviewed nature of anxiety, which can range from excessive worry to incapacitating baseless fear. Discussed s/s of shelia and when to report. Denies self harm, insomnia, difficulty concentrating. -Reiterated the importance of medication regimen adherence -Reviewed nonmedical management techniques - breathing (8-7-4 technique), meditating, reading, listening to music. - Member agreeable to [facility] referral today - Follow up with PCP routinely, and prescriber - Angie Mccray 09/13/2024, advised to f/u on referral to community therapist - Reminded to call pcp or this [facility] for worsening anxiety or depression -Crisis info given and advised to seek ED eval for SI/HI/AVH 09/22/2024 RACHNA (generalized anxiety disorder) (ICD-10 - F41.1) F33.1 MDD, recurrent, moderate Chronic/Labile -Reviewed nature of anxiety, which can range from excessive worry to incapacitating baseless fear. Discussed s/s of shelia and when to report. Denies self harm, insomnia, difficulty concentrating. -Reiterated the importance of medication regimen adherence -Reviewed nonmedical management techniques - breathing (8-7-4 technique), meditating, reading, listening to music. - Supported patient in calling 911 for her ex- and stayed until they left with him - Member agreeable to [facility] referral today - Follow up with PCP routinely, and prescriber - Angie Mccray 09/13/2024, advised to f/u on referral to community therapist - Reminded to call pcp or this [facility] for worsening anxiety or depression -Crisis info given and advised to seek ED eval for SI/HI/AVH 09/29/2024 RACHNA (generalized anxiety disorder) (ICD-10 - F41.1) F33.1 MDD, recurrent, moderate Chronic/Labile -Reviewed nature of anxiety, which can range from excessive worry to incapacitating baseless fear. Discussed s/s of shelia and when to report. Denies self harm, insomnia, difficulty concentrating. -Reiterated the importance of medication regimen adherence -Reviewed nonmedical management techniques - breathing (8-7-4 technique), meditating, reading, listening to music. - Member agreeable to [facility] referral - In process - Follow up with PCP routinely, and prescriber - Angie Mccray, advised to make her aware of [facility] referral to community therapist - Reminded to call pcp or this APC for worsening anxiety or depression -Crisis info given and advised to seek ED eval for SI/HI/AVH 10/07/2024 RACHNA (generalized anxiety disorder) (ICD-10 - F41.1) F33.1 MDD, recurrent, moderate Chronic/Labile -Reviewed nature of anxiety, which can range from excessive worry to incapacitating baseless fear. Discussed s/s of shelia and when to report. Denies self harm, insomnia, difficulty concentrating. -Reiterated the importance of medication regimen adherence -Reviewed nonmedical management techniques - breathing (8-7-4 technique), meditating, reading, listening to music. - Member agreeable to [facility] referral - In process - Follow up with PCP routinely, and prescriber - Angie Mccray, advised to make her aware of [facility] referral to community therapist - Reminded to call pcp or this APC for worsening anxiety or depression -Crisis info given and advised to seek ED eval for SI/HI/AVH 09/08/2024 RACHNA (generalized anxiety disorder) (ICD-10 - F41.1) F33.1 MDD, recurrent, moderate Chronic/Labile - PHQ9 and GAD7 as above -Reviewed nature of anxiety, which can range from excessive worry to incapacitating baseless fear. Discussed s/s of shelia and when to report. Denies self harm, insomnia, difficulty concentrating. -Reviewed nonmedical management techniques - breathing (8-7-4 technique), meditating, reading, listening to music. 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 Reviewed nonmedical management techniques. Member denies increased s/s of anxiety. Member declines assistance from [facility] - Follow up with PCP and prescriber - Angie Mccray, advised to f/u on referral to community therapist - Reminded to call pcp or this APC for worsening anxiety 06/30/2024 RACHNA (generalized anxiety disorder) (ICD-10 - F41.1) Chronic/Improved since ED visit Reviewed nature of anxiety, which can range from excessive worry to incapacitating baseless fear. Reviewed nonmedical management techniques. Member denies increased s/s of anxiety. Member declines assistance from [facility] - Follow up with PCP and prescriber - Angie Mccray, advised to f/u on referral to community therapist - Reminded to call pcp or this APC for worsening anxiety 09/08/2024 Other chronic pain (ICD-10 - G89.29) M17.12 Unilateral primary OA of L knee M47.819 Arthritis, low back S82.851D displaced trimalleolar fracture or RLE, subsequent encounter with routine healing Chronic/Stable - Pain/stiffness in multiple joints at baseline - Educated to exercise regularly (low impact) for short periods as tolerated and PT/rehab may be helpful with movement and reduce pain/stress on joints - Continue PT at [facility] - Use assistive devices to avoid falls d/t pain and stiffness as needed - Avoid heavy lifting or overuse of joints - Continue medications as prescribed - Wear new ankle brace as directed by ortho - Use heat and/or cold to reduce pain/stiffness if helpful, for short periods only (<15 minutes) to avoid skin damage - Inform providers if pain worsens and report any acute changes to providers if pain is not managed - F/U with PCP/rheum/ortho as directed - HOME PEDAL DEVICE ORDERED and PENDING DELIVERY 10/07/2024 Other chronic pain (ICD-10 - G89.29) M17.12 Unilateral primary OA of L knee M47.819 Arthritis, low back S82.851D displaced trimalleolar fracture or RLE, subsequent encounter with routine healing Chronic/Stable - Pain/stiffness in multiple joints at baseline - Educated to exercise regularly (low impact) for short periods as tolerated and PT/rehab may be helpful with movement and reduce pain/stress on joints - Continue PT at [facility] - Use assistive devices to avoid falls d/t pain and stiffness as needed - Avoid heavy lifting or overuse of joints - Continue medications as prescribed - Wear new ankle brace as directed by ortho - Use heat and/or cold to reduce pain/stiffness if helpful, for short periods only (<15 minutes) to avoid skin damage - Inform providers if pain worsens and report any acute changes to providers if pain is not managed - F/U with PCP/rheum/ortho as directed - HOME PEDAL DEVICE ORDERED and PENDING DELIVERY 09/29/2024 Other chronic pain (ICD-10 - G89.29) M17.12 Unilateral primary OA of L knee M47.819 Arthritis, low back S82.851D displaced trimalleolar fracture or RLE, subsequent encounter with routine healing Chronic/Stable - Pain/stiffness in multiple joints at baseline - Educated to exercise regularly (low impact) for short periods as tolerated and PT/rehab may be helpful with movement and reduce pain/stress on joints - Continue PT at [facility] - Use assistive devices to avoid falls d/t pain and stiffness as needed - Avoid heavy lifting or overuse of joints - Continue medications as prescribed - Wear new ankle brace as directed by ortho - Use heat and/or cold to reduce pain/stiffness if helpful, for short periods only (<15 minutes) to avoid skin damage - Inform providers if pain worsens and report any acute changes to providers if pain is not managed - F/U with PCP/rheum/ortho as directed - HOME PEDAL DEVICE ORDERED and PENDING DELIVERY 09/22/2024 Other chronic pain (ICD-10 - G89.29) M17.12 Unilateral primary OA of L knee M47.819 Arthritis, low back S82.851D displaced trimalleolar fracture or RLE, subsequent encounter with routine healing Chronic/Stable - Pain/stiffness in multiple joints at baseline - Educated to exercise regularly (low impact) for short periods as tolerated and PT/rehab may be helpful with movement and reduce pain/stress on joints - Continue PT at [facility] - Use assistive devices to avoid falls d/t pain and stiffness as needed - Avoid heavy lifting or overuse of joints - Continue medications as prescribed - Wear new ankle brace as directed by ortho - Use heat and/or cold to reduce pain/stiffness if helpful, for short periods only (<15 minutes) to avoid skin damage - Inform providers if pain worsens and report any acute changes to providers if pain is not managed - F/U with PCP/rheum/ortho as directed - HOME PEDAL DEVICE ORDERED and PENDING DELIVERY 09/15/2024 Other chronic pain (ICD-10 - G89.29) M17.12 Unilateral primary OA of L knee M47.819 Arthritis, low back S82.851D displaced trimalleolar fracture or RLE, subsequent encounter with routine healing Chronic/Stable - Pain/stiffness in multiple joints at baseline - Educated to exercise regularly (low impact) for short periods as tolerated and PT/rehab may be helpful with movement and reduce pain/stress on joints - Continue PT at [facility] - Use assistive devices to avoid falls d/t pain and stiffness as needed - Avoid heavy lifting or overuse of joints - Continue medications as prescribed - Wear new ankle brace as directed by ortho - Use heat and/or cold to reduce pain/stiffness if helpful, for short periods only (<15 minutes) to avoid skin damage - Inform providers if pain worsens and report any acute changes to providers if pain is not managed - F/U with PCP/rheum/ortho as directed - HOME PEDAL DEVICE ORDERED and PENDING DELIVERY 09/01/2024 Other chronic pain (ICD-10 - G89.29) M17.12 Unilateral primary OA of L knee M47.819 Arthritis, low back S82.851D displaced trimalleolar fracture or RLE, subsequent encounter with routine healing Chronic/Stable - Pain/stiffness in multiple joints at baseline - Educated to exercise regularly (low impact) for short periods as tolerated and PT/rehab may be helpful with movement and reduce pain/stress on joints - Continue PT at [facility] - Use assistive devices to avoid falls d/t pain and stiffness as needed - Avoid heavy lifting or overuse of joints - Continue medications as prescribed - Wear new ankle brace as directed by ortho - Use heat and/or cold to reduce pain/stiffness if helpful, for short periods only (<15 minutes) to avoid skin damage - Inform providers if pain worsens and report any acute changes to providers if pain is not managed - F/U with PCP/rheum/ortho as directed - HOME PEDAL DEVICE ORDERED and PENDING DELIVERY 03/10/2024 COPD exacerbation (ICD-10 - J44.1) J44.9 COPD chronic back to baseline U07.1 Covid-19 resolving Improving/resolvin g sx's - Member appears stable during visit with sxs of mild exacerbation - Continue medications and inhalers as prescribed; counseled to complete course azithromycin and prednisone as prescribedz- reviewed use, expectations and importance of completing course - Educated member on importance of O2 use as prescribed - Avoid triggers as possible - Monitor for increased dyspnea or productive cough as first signs of exacerbation - Continue ongoing supportive care during Covid19 infection - Monitor for any rebound sxs or fever, chills, cough, respiratory distress, loss of taste/smell, body aches, headache or any other COVID sxs - Reviewed appropriate masking, social distancing, maximizing air flow, avoiding sharing utensils/dishes/cu ps/bedding when possible to help prevent transmission - Reviewed cleaning/disinfect ing high touch surfaces - Educated member on self care measures including staying hydrated, getting plenty of rest, repositioning and ambulating regularly - Educated member to call PCP, pulm or this APC as needed for new or worsening sxs 08/23/2024 RACHNA (generalized anxiety disorder) (ICD-10 - F41.1) Chronic/Labile -Reviewed nature of anxiety, which can range from excessive worry to incapacitating baseless fear. Discussed s/s of shelia and when to report. Denies self harm, insomnia, difficulty concentrating. -Reviewed nonmedical management techniques - breathing (8-7-4 technique), meditating, reading, listening to music. - Member declines assistance from [facility] - Follow up with PCP and prescriber - Angie Mccray, advised to f/u on referral to community therapist - Reminded to call pcp or this APC for worsening anxiety 08/30/2024 RACHNA (generalized anxiety disorder) (ICD-10 - F41.1) Chronic/Labile -Reviewed nature of anxiety, which can range from excessive worry to incapacitating baseless fear. Discussed s/s of shelia and when to report. Denies self harm, insomnia, difficulty concentrating. -Reviewed nonmedical management techniques - breathing (8-7-4 technique), meditating, reading, listening to music. - Member declines assistance from [facility] - Follow up with PCP and prescriber - Angie Mccray, advised to f/u on referral to community therapist - Reminded to call pcp or this [facility] for worsening anxiety 08/16/2024 RACHNA (generalized anxiety disorder) (ICD-10 - F41.1) Chronic/Stable Reviewed nature of anxiety, which can range from excessive worry to incapacitating baseless fear. Reviewed nonmedical management techniques. Member denies increased s/s of anxiety. Member declines assistance from [facility] - Follow up with PCP and prescriber - Angie Mccray, advised to f/u on referral to community therapist - Reminded to call pcp or this APC for worsening anxiety 08/08/2024 RACHNA (generalized anxiety disorder) (ICD-10 - F41.1) Chronic/Stable Reviewed nature of anxiety, which can range from excessive worry to incapacitating baseless fear. Reviewed nonmedical management techniques. Member denies increased s/s of anxiety. Member declines assistance from [facility] - Follow up with PCP and prescriber - Angie Mccray, advised to f/u on referral to community therapist - Reminded to call pcp or this APC for worsening anxiety 08/02/2024 RACHNA (generalized anxiety disorder) (ICD-10 - F41.1) Chronic/Stable Reviewed nature of anxiety, which can range from excessive worry to incapacitating baseless fear. Reviewed nonmedical management techniques. Member denies increased s/s of anxiety. Member declines assistance from [facility] - Follow up with PCP and prescriber - Angie Mccray, advised to f/u on referral to community therapist - Reminded to call pcp or this APC for worsening anxiety 07/28/2024 RACHNA (generalized anxiety disorder) (ICD-10 - F41.1) Chronic/Stable Reviewed nature of anxiety, which can range from excessive worry to incapacitating baseless fear. Reviewed nonmedical management techniques. Member denies increased s/s of anxiety. Member declines assistance from [facility] - Follow up with PCP and prescriber - Angie Mccray, advised to f/u on referral to community therapist - Reminded to call pcp or this APC for worsening anxiety 07/22/2024 RACHNA (generalized anxiety disorder) (ICD-10 - F41.1) Chronic/Stable Reviewed nature of anxiety, which can range from excessive worry to incapacitating baseless fear. Reviewed nonmedical management techniques. Member denies increased s/s of anxiety. Member declines assistance from [facility] - Follow up with PCP and prescriber - Angie Mccray, advised to f/u on referral to community therapist - Reminded to call pcp or this APC for worsening anxiety 07/15/2024 RACHNA (generalized anxiety disorder) (ICD-10 - F41.1) Chronic/Stable Reviewed nature of anxiety, which can range from excessive worry to incapacitating baseless fear. Reviewed nonmedical management techniques. Member denies increased s/s of anxiety. Member declines assistance from [facility] - Follow up with PCP and prescriber - Angie Mccray, advised to f/u on referral to community therapist - Reminded to call pcp or this APC for worsening anxiety 07/07/2024 Chronic diastolic (congestive) heart failure (ICD-10 - I50.32) 06/24/2024 Chronic diastolic (congestive) heart failure (ICD-10 - I50.32) 03/25/2024 Chronic diastolic (congestive) heart failure (ICD-10 - I50.32) 04/07/2024 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 kidney disease, or unspecified chronic kidney disease (ICD-10 - I13.0) Dx added from [facility] 04/04/2024 Type 2 diabetes mellitus with diabetic neuropathy, unspecified (ICD-10 - E11.40) E11.65 Uncontrolled T2DM with hyperglycemia - Chronic, stable - Continue Checking BG as ordered/directed goal BG 90-120 - Continue medication as prescribed - Recommend yearly eye exams, A1c - Recommend diabetic diet - Discussed potential for end-organ damage with chronic hyperglycemia - F/U with podiatry (as needed/desired) for regular foot checks - Report any sxs of hypo- or hyperglycemia immediately - F/U with PCP/endocrine for ongoing mgmt/monitoring 03/08/2024 COPD exacerbation (ICD-10 - J44.1) J44.9 COPD U07.1 Covid-19 Acute/Labile - Member appears stable during visit with sxs of mild exacerbation - Continue medications and inhalers as prescribed; new rx for z-arslan and short course of prednisone- explained use and expectations and importance of completing course - Educated member on importance of O2 use as prescribed - Avoid triggers as possible - Monitor for increased dyspnea or productive cough as first signs of exacerbation - Continue ongoing supportive care during Covid19 infection - Monitor for any rebound sxs or fever, chills, cough, respiratory distress, loss of taste/smell, body aches, headache or any other COVID sxs - Reviewed appropriate masking, social distancing, maximizing air flow, avoiding sharing utensils/dishes/cu ps/bedding when possible to help prevent transmission - Reviewed cleaning/disinfect ing high touch surfaces - Educated member on self care measures including staying hydrated, getting plenty of rest, repositioning and ambulating regularly - Educated member to call PCP, pulm or this APC as needed for new or worsening sxs 02/19/2024 Mixed incontinence (ICD-10 - N39.46) Chronic/Stable Educated to increase fluid intake during day time hours Member uses incontinuence pads on a daily basis. - Educated member to watch for signs of skin breakdown, and recurrent UTI (fever, pain or odor w/ urination, flank pain), call provider w/ any new symptoms - counseled on UTI preventions - void pre/post intercourse, stay well hydrated, take showers instead of baths, minimize douching in genital area, and wiping front to back - f/u with PCP prn and will continue to monitor s/sx UTIs 01/29/2024 Mixed incontinence (ICD-10 - N39.46) Chronic/Stable Educated to increase fluid intake during day time hours Member uses incontinuence pads on a daily basis. - Educated member to watch for signs of skin breakdown, and recurrent UTI (fever, pain or odor w/ urination, flank pain), call provider w/ any new symptoms - counseled on UTI preventions - void pre/post intercourse, stay well hydrated, take showers instead of baths, minimize douching in genital area, and wiping front to back - f/u with PCP prn and will continue to monitor s/sx UTIs 02/24/2024 Chronic diastolic (congestive) heart failure (ICD-10 - I50.32) 12/23/2023 Mixed incontinence (ICD-10 - N39.46) Chronic/Stable Educated to increase fluid intake during day time hours Member uses incontinuence pads on a daily basis. - Educated member to watch for signs of skin breakdown, and recurrent UTI (fever, pain or odor w/ urination, flank pain), call provider w/ any new symptoms - counseled on UTI preventions - void pre/post intercourse, stay well hydrated, take showers instead of baths, minimize douching in genital area, and wiping front to back - f/u with PCP prn and will continue to monitor s/sx UTIs 12/16/2023 Mixed incontinence (ICD-10 - N39.46) Chronic/Stable Educated to increase fluid intake during day time hours Member uses incontinuence pads on a daily basis. - Educated member to watch for signs of skin breakdown, and recurrent UTI (fever, pain or odor w/ urination, flank pain), call provider w/ any new symptoms - counseled on UTI preventions - void pre/post intercourse, stay well hydrated, take showers instead of baths, minimize douching in genital area, and wiping front to back - f/u with PCP prn and will continue to monitor s/sx UTIs 12/09/2023 COPD exacerbation (ICD-10 - J44.1) J44.9 COPD Acute on Chronic/Exacerbati on resolved - Member appears stable during visit without sxs of exacerbation - Continue medications and inhalers as prescribed - Educated member on importance of O2 use as prescribed - Avoid triggers as possible - Monitor for increased dyspnea or productive cough as first signs of exacerbation - Report any changes in symptoms or worsening SOB to providers/PCP/pulm - Encourage healthy diet to minimize risk of unwanted weight loss Advised to schedule follow up with PCP and independent film maker 11/26/2023 COPD exacerbation (ICD-10 - J44.1) J44.9 COPD Acute on Chronic/Improving Recent hospital admission for exacerbation Counseled to complete course of prednisone and antibiotic - Member appears stable during visit without sxs of worsening exacerbation - Continue medications and inhalers as prescribed - Educated member on importance of O2 use as prescribed - Avoid triggers as possible - Monitor for increased dyspnea or productive cough as first signs of exacerbation - Report any changes in symptoms or worsening SOB to providers/PCP/pulm - Encourage healthy diet to minimize risk of unwanted weight loss Advised to schedule follow up with PCP and independent film maker 11/26/2023 Acute cystitis without hematuria (ICD-10 - N30.00) N39.46 Mixed urinary Incontinence Acute/Improving - Recent hospitalization with UTI Educated to complete course of antibiotic as prescribed and to increase fluid intake Member uses incontinuence pads on a daily basis. - Educated member to watch for signs of skin breakdown, and recurrent UTI (fever, pain or odor w/ urination, flank pain), call provider w/ any new symptoms - counseled on UTI preventions - void pre/post intercourse, stay well hydrated, take showers instead of baths, minimize douching in genital area, and wiping front to back - f/u with PCP prn and will continue to monitor s/sx UTIs 12/09/2023 Acute cystitis without hematuria (ICD-10 - N30.00) N39.46 Mixed urinary Incontinence- Chronic/Stable Cystitis Acute/Resolved Educated to increase fluid intake Member uses incontinuence pads on a daily basis. - Educated member to watch for signs of skin breakdown, and recurrent UTI (fever, pain or odor w/ urination, flank pain), call provider w/ any new symptoms - counseled on UTI preventions - void pre/post intercourse, stay well hydrated, take showers instead of baths, minimize douching in genital area, and wiping front to back - f/u with PCP prn and will continue to monitor s/sx UTIs 12/16/2023 Uncontrolled type 2 diabetes mellitus with hyperglycemia (ICD-10 - E11.65) Z79.4 LT (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 insulin Chronic, stable Educated BG - call care team if >300 consistently - Provided education on Trulicity - intended effect and potential s/e's, demonstrated administration and how to set calendar schedule - member verbalized teachback, able to demonstrate successful administration and showed a calendar of future weekly doses - Member declines CGM will continue finger stick BG checks - Continue medication as prescribed- reviewed LT and SS insulin doses - Recommend yearly eye exams, A1c - Recommend diabetic diet - Discussed potential for end-organ damage with chronic hyperglycemia - F/U with podiatry (as needed/desired) for regular foot checks - Report any sxs of hypo- or hyperglycemia immediately - F/U with PCP/endocrine for ongoing mgmt/monitoring 12/23/2023 Uncontrolled type 2 diabetes mellitus with hyperglycemia (ICD-10 - E11.65) Z79.4 LT (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 insulin Chronic, stable Educated BG - call care team if >300 consistently - Provided education on Trulicity - intended effect and potential s/e's, demonstrated administration and how to set calendar schedule - member verbalized teachback, able to demonstrate successful administration and showed a calendar of future weekly doses - Member declines CGM will continue finger stick BG checks - Continue medication as prescribed- reviewed LT and SS insulin doses - Recommend yearly eye exams, A1c - Recommend diabetic diet - Discussed potential for end-organ damage with chronic hyperglycemia - F/U with podiatry (as needed/desired) for regular foot checks - Report any sxs of hypo- or hyperglycemia immediately - F/U with PCP/endocrine for ongoing mgmt/monitoring 02/24/2024 Stage 3a chronic kidney disease (ICD-10 - N18.31) 01/29/2024 Uncontrolled type 2 diabetes mellitus with hyperglycemia (ICD-10 - E11.65) Z79.4 LT (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 insulin Chronic, stable Educated BG - call care team if >300 consistently - Provided education on Trulicity - intended effect and potential s/e's, demonstrated administration and how to set calendar schedule - member verbalized teachback, able to demonstrate successful administration and showed a calendar of future weekly doses - Member declines CGM will continue finger stick BG checks - Continue medication as prescribed- reviewed LT and SS insulin doses - Recommend yearly eye exams, A1c - Recommend diabetic diet - Discussed potential for end-organ damage with chronic hyperglycemia - F/U with podiatry (as needed/desired) for regular foot checks - Report any sxs of hypo- or hyperglycemia immediately - F/U with PCP/endocrine for ongoing mgmt/monitoring 02/19/2024 Uncontrolled type 2 diabetes mellitus with hyperglycemia (ICD-10 - E11.65) Z79.4 LT (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 insulin Chronic, stable Educated BG - call care team if >300 consistently - Provided education on Trulicity - intended effect and potential s/e's, demonstrated administration and how to set calendar schedule - member verbalized teachback, able to demonstrate successful administration and showed a calendar of future weekly doses - Member declines CGM will continue finger stick BG checks - Continue medication as prescribed- reviewed LT and SS insulin doses - Recommend yearly eye exams, A1c - Recommend diabetic diet - Discussed potential for end-organ damage with chronic hyperglycemia - F/U with podiatry (as needed/desired) for regular foot checks - Report any sxs of hypo- or hyperglycemia immediately - F/U with PCP/endocrine for ongoing mgmt/monitoring 03/08/2024 COVID-19 virus infection (ICD-10 - U07.1) 04/04/2024 Mixed incontinence (ICD-10 - N39.46) 04/07/2024 Chronic diastolic (congestive) heart failure (ICD-10 - I50.32) Dx added from [facility] 03/25/2024 Stage 3a chronic kidney disease (ICD-10 - N18.31) 06/24/2024 Stage 3a chronic kidney disease (ICD-10 - N18.31) 07/07/2024 Stage 3a chronic kidney disease (ICD-10 - N18.31) 07/15/2024 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) 07/22/2024 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) 07/28/2024 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) 08/02/2024 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) 08/08/2024 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) 08/16/2024 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) 08/30/2024 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) 08/23/2024 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) 03/10/2024 COVID-19 virus infection (ICD-10 - U07.1) 09/01/2024 Unilateral primary osteoarthritis, left knee (ICD-10 - M17.12) 09/15/2024 Unilateral primary osteoarthritis, left knee (ICD-10 - M17.12) 09/22/2024 Unilateral primary osteoarthritis, left knee (ICD-10 - M17.12) 09/29/2024 Unilateral primary osteoarthritis, left knee (ICD-10 - M17.12) 10/07/2024 Unilateral primary osteoarthritis, left knee (ICD-10 - M17.12) 09/08/2024 Unilateral primary osteoarthritis, left knee (ICD-10 - M17.12) 07/05/2024 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) 09/08/2024 Arthritis, low back (ICD-10 - M47.819) 10/07/2024 Arthritis, low back (ICD-10 - M47.819) 09/29/2024 Arthritis, low back (ICD-10 - M47.819) 09/22/2024 Arthritis, low back (ICD-10 - M47.819) 09/15/2024 Arthritis, low back (ICD-10 - M47.819) 09/01/2024 Arthritis, low back (ICD-10 - M47.819) 03/10/2024 Uncontrolled type 2 diabetes mellitus with hyperglycemia (ICD-10 - E11.65) E11.40 T2DM with diabetic neuropathy, unspecified Z79.85 LT current use of injectable non-insulin antidiabetic medication Z79.4 LT current use of insulin Chronic/Stable - Continue check BG as ordered/directed - member continues to decline CGM - Continue medication as prescribed - Recommend yearly eye exams, A1c - Recommend diabetic diet - advised to be prudent about diet especially during infection and course of prednisone - Discussed potential for end-organ damage with chronic hyperglycemia - F/U with podiatry (as needed/desired) for regular foot checks - Report any sxs of hypo- or hyperglycemia immediately - F/U with PCP/endocrine for ongoing mgmt/monitoring 08/23/2024 Type 2 diabetes mellitus with diabetic neuropathy, unspecified (ICD-10 - E11.40) E11.65 Uncontrolled T2DM with hyperglycemia LT current use of insulin LT current use of injectable non insulin antidiabetic medication Chronic/Stable - Continue to check BG TID and HS as ordered/directed - declines CGM - Continue medication as prescribed - Confirm long acting insulin with PCP - Recommend yearly eye exams, A1c - Recommend diabetic diet - Discussed potential for end-organ damage with chronic hyperglycemia - F/U with podiatry (as needed/desired) for regular foot checks - Report any sxs of hypo- or hyperglycemia immediately - F/U with PCP/endocrine for ongoing mgmt/monitoring 08/30/2024 Type 2 diabetes mellitus with diabetic neuropathy, unspecified (ICD-10 - E11.40) E11.65 Uncontrolled T2DM with hyperglycemia LT current use of insulin LT current use of injectable non insulin antidiabetic medication Chronic/Stable - Continue to check BG TID and HS as ordered/directed - declines CGM - Continue medication as prescribed - Confirm long acting insulin with PCP - Recommend yearly eye exams, A1c - Recommend diabetic diet - Discussed potential for end-organ damage with chronic hyperglycemia - F/U with podiatry (as needed/desired) for regular foot checks - Report any sxs of hypo- or hyperglycemia immediately - F/U with PCP/endocrine for ongoing mgmt/monitoring 08/16/2024 Type 2 diabetes mellitus with diabetic neuropathy, unspecified (ICD-10 - E11.40) E11.65 Uncontrolled T2DM with hyperglycemia LT current use of insulin LT current use of injectable non insulin antidiabetic medication Chronic/Stable - Continue to check BG TID and HS as ordered/directed - declines CGM - Continue medication as prescribed - Confirm long acting insulin with PCP - Recommend yearly eye exams, A1c - Recommend diabetic diet - Discussed potential for end-organ damage with chronic hyperglycemia - F/U with podiatry (as needed/desired) for regular foot checks - Report any sxs of hypo- or hyperglycemia immediately - F/U with PCP/endocrine for ongoing mgmt/monitoring 08/08/2024 Type 2 diabetes mellitus with diabetic neuropathy, unspecified (ICD-10 - E11.40) E11.65 Uncontrolled T2DM with hyperglycemia LT current use of insulin LT current use of injectable non insulin antidiabetic medication Chronic/Stable - Continue to check BG TID and HS as ordered/directed - declines CGM - Continue medication as prescribed - Confirm long acting insulin with PCP - Recommend yearly eye exams, A1c - Recommend diabetic diet - Discussed potential for end-organ damage with chronic hyperglycemia - F/U with podiatry (as needed/desired) for regular foot checks - Report any sxs of hypo- or hyperglycemia immediately - F/U with PCP/endocrine for ongoing mgmt/monitoring 08/02/2024 Type 2 diabetes mellitus with diabetic neuropathy, unspecified (ICD-10 - E11.40) E11.65 Uncontrolled T2DM with hyperglycemia LT current use of insulin LT current use of injectable non insulin antidiabetic medication Chronic/Stable - Continue to check BG TID and HS as ordered/directed - declines CGM - Continue medication as prescribed - Confirm long acting insulin with PCP - Recommend yearly eye exams, A1c - Recommend diabetic diet - Discussed potential for end-organ damage with chronic hyperglycemia - F/U with podiatry (as needed/desired) for regular foot checks - Report any sxs of hypo- or hyperglycemia immediately - F/U with PCP/endocrine for ongoing mgmt/monitoring 07/28/2024 Type 2 diabetes mellitus with diabetic neuropathy, unspecified (ICD-10 - E11.40) E11.65 Uncontrolled T2DM with hyperglycemia LT current use of insulin LT current use of injectable non insulin antidiabetic medication Chronic/Stable - Continue to check BG TID and HS as ordered/directed - declines CGM - Continue medication as prescribed - Confirm long acting insulin with PCP - Recommend yearly eye exams, A1c - Recommend diabetic diet - Discussed potential for end-organ damage with chronic hyperglycemia - F/U with podiatry (as needed/desired) for regular foot checks - Report any sxs of hypo- or hyperglycemia immediately - F/U with PCP/endocrine for ongoing mgmt/monitoring 07/22/2024 Type 2 diabetes mellitus with diabetic neuropathy, unspecified (ICD-10 - E11.40) E11.65 Uncontrolled T2DM with hyperglycemia LT current use of insulin LT current use of injectable non insulin antidiabetic medication Chronic/Stable - Continue to check BG TID and HS as ordered/directed - declines CGM - Continue medication as prescribed - Confirm long acting insulin with PCP - Recommend yearly eye exams, A1c - Recommend diabetic diet - Discussed potential for end-organ damage with chronic hyperglycemia - F/U with podiatry (as needed/desired) for regular foot checks - Report any sxs of hypo- or hyperglycemia immediately - F/U with PCP/endocrine for ongoing mgmt/monitoring 07/15/2024 Type 2 diabetes mellitus with diabetic neuropathy, unspecified (ICD-10 - E11.40) E11.65 Uncontrolled T2DM with hyperglycemia LT current use of insulin LT current use of injectable non insulin antidiabetic medication Chronic/Stable - Continue to check BG TID and HS as ordered/directed - declines CGM - Continue medication as prescribed - Confirm long acting insulin with PCP - Recommend yearly eye exams, A1c - Recommend diabetic diet - Discussed potential for end-organ damage with chronic hyperglycemia - F/U with podiatry (as needed/desired) for regular foot checks - Report any sxs of hypo- or hyperglycemia immediately - F/U with PCP/endocrine for ongoing mgmt/monitoring 07/07/2024 COPD (chronic obstructive pulmonary disease) (ICD-10 - J44.9) J43.1 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 Chronic respiratory failure with hypoxia Z99.81 Oxygen dependent Chronic/Sable - Member appears stable during visit without sxs of exacerbation - Continue medications and inhalers as prescribed - Educated member on importance of O2 use as prescribed - Avoid triggers as possible - Monitor for increased dyspnea or productive cough as first signs of exacerbation - Report any changes in symptoms or worsening SOB to providers/PCP/pulm - Encourage healthy diet to minimize risk of unwanted weight loss - Follow up with PCP and Collections Manager routinely - Seek ED evaluation for hypoxia, dyspnea, chest pain 06/24/2024 COPD (chronic obstructive pulmonary disease) (ICD-10 - J44.9) J43.1 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 Chronic respiratory failure with hypoxia Z99.81 Oxygen dependent Chronic/Sable - Member appears stable during visit without sxs of exacerbation - Continue medications and inhalers as prescribed - Educated member on importance of O2 use as prescribed - Avoid triggers as possible - Monitor for increased dyspnea or productive cough as first signs of exacerbation - Report any changes in symptoms or worsening SOB to providers/PCP/pulm - Encourage healthy diet to minimize risk of unwanted weight loss - Follow up with PCP and Collections Manager routinely - Seek ED evaluation for hypoxia, dyspnea, chest pain 03/25/2024 COPD (chronic obstructive pulmonary disease) (ICD-10 - J44.9) Chronic/Sable - Member appears stable during visit without sxs of exacerbation - Continue medications and inhalers as prescribed - Educated member on importance of O2 use as prescribed - Avoid triggers as possible - Monitor for increased dyspnea or productive cough as first signs of exacerbation - Report any changes in symptoms or worsening SOB to providers/PCP/pulm - Encourage healthy diet to minimize risk of unwanted weight loss 04/07/2024 Stage 3a chronic kidney disease (ICD-10 - N18.31) Dx added from [facility] 04/04/2024 Recurrent UTI (urinary tract infection) (ICD-10 - N39.0) 02/19/2024 prison (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 insulin (ICD-10 - Z79.4) 01/29/2024 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 (ICD-10 - Z79.4) 02/24/2024 COPD (chronic obstructive pulmonary disease) (ICD-10 - J44.9) Chronic/Sable - Member appears stable during visit without sxs of exacerbation - Continue medications and inhalers as prescribed - Educated member on importance of O2 use as prescribed - Avoid triggers as possible - Monitor for increased dyspnea or productive cough as first signs of exacerbation - Report any changes in symptoms or worsening SOB to providers/PCP/pulm - Encourage healthy diet to minimize risk of unwanted weight loss 12/23/2023 prison (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 insulin (ICD-10 - Z79.4) 12/16/2023 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 (ICD-10 - Z79.4) 12/09/2023 Mixed incontinence (ICD-10 - N39.46) 11/26/2023 Mixed incontinence (ICD-10 - N39.46) 11/26/2023 Uncontrolled type 2 diabetes mellitus with hyperglycemia (ICD-10 - E11.65) Z79.4 LT (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 insulin Chronic, stable Educated BG may be elevated while on steroids - call care team if >300 consistently - Continue CBS as ordered/directed - Continue medication as prescribed - Recommend yearly eye exams, A1c - Recommend diabetic diet - Discussed potential for end-organ damage with chronic hyperglycemia - F/U with podiatry (as needed/desired) for regular foot checks - Report any sxs of hypo- or hyperglycemia immediately - F/U with PCP/endocrine for ongoing mgmt/monitoring 12/09/2023 Uncontrolled type 2 diabetes mellitus with hyperglycemia (ICD-10 - E11.65) Z79.4 LT (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 insulin Chronic, stable Educated BG may be elevated post steroids - call care team if >300 consistently - Continue CBS as ordered/directed - Continue medication as prescribed- reviewed LT and SS insulin doses - Recommend yearly eye exams, A1c - Recommend diabetic diet - Discussed potential for end-organ damage with chronic hyperglycemia - F/U with podiatry (as needed/desired) for regular foot checks - Report any sxs of hypo- or hyperglycemia immediately - F/U with PCP/endocrine for ongoing mgmt/monitoring 12/16/2023 Major depressive disorder, recurrent episode, moderate (ICD-10 - F33.1) F41.1 RACHNA Chronic/Stable - PHQ9/GAD7 completed as above - Reviewed nature of anxiety and depressive sxs - denies sxs of increased worry/sadness - Reviewed nonmedical management techniques - Continue medications as prescribed - Continue outpatient F/U with psych/prescribers and involve [facility] team as appropriate; encouraged to call [facility] for sooner visit as Angie Mccray does not return from Maternity Leave untile 01/11/2024 - Monitor for increased sxs of depression/anxiety and report acute changes to providers - Utilize emergency services if having sxs of SI/HI/AVH as appropriate 12/23/2023 Major depressive disorder, recurrent episode, moderate (ICD-10 - F33.1) F41.1 RACHNA Chronic/Stable - PHQ9/GAD7 completed as above - Reviewed nature of anxiety and depressive sxs - denies sxs of increased worry/sadness - Reviewed nonmedical management techniques - Continue medications as prescribed - Continue outpatient F/U with psych/prescribers and involve [facility] team as appropriate; encouraged to call [facility] for sooner visit as Angie Mccray does not return from Maternity Leave untile 01/11/2024 - Monitor for increased sxs of depression/anxiety and report acute changes to providers - Utilize emergency services if having sxs of SI/HI/AVH as appropriate 02/24/2024 Type 2 diabetes mellitus with diabetic neuropathy, unspecified (ICD-10 - E11.40) Z79.4 LT (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 insulin Z79.85 LT current use of injectable non-insulin diabetic medication Chronic/Stable Improved A1c - Continue checking BS as ordered/directed - Continue medication as prescribed - Recommend yearly eye exams, A1c - Recommend diabetic diet - Discussed potential for end-organ damage with chronic hyperglycemia - F/U with podiatry (as needed/desired) for regular foot checks - Report any sxs of hypo- or hyperglycemia immediately - F/U with PCP/endocrine for ongoing mgmt/monitoring 01/29/2024 Major depressive disorder, recurrent episode, moderate (ICD-10 - F33.1) F41.1 RACHNA Chronic/Stable - PHQ9/GAD7 completed as above - Reviewed nature of anxiety and depressive sxs - denies sxs of increased worry/sadness - Reviewed nonmedical management techniques - Continue medications as prescribed - Continue outpatient F/U with therapist/prescrib ers at [facility] and involve [facility] team as appropriate - Monitor for increased sxs of depression/anxiety and report acute changes to providers - Utilize emergency services if having sxs of SI/HI/AVH as appropriate 02/19/2024 COPD exacerbation (ICD-10 - J44.1) 04/04/2024 Dysuria (ICD-10 - R30.0) N39.46 Mixed incontinence N39.0 Recurrent UTI Acute/recurrent - member reports frequent UTI. rosa reports dysuria, pressure and frequent urination, Denies hematuria - counseled on UTI preventions - change incontinence pads frequently, stay well hydrated, take showers instead of baths, minimize use of soap or products with fragrance in genital area, and wiping front to back - Clean catch urine specimen obtained today and will have processed at [facility] - orders placed - Will treat empirically with nitrofurantoin - f/u with PCP prn and will continue to monitor s/sx UTIs- consider referral to urologist - Gave info for [facility] for acute s/sx's after hours/weekends 04/07/2024 Uncontrolled type 2 diabetes mellitus with hyperglycemia (ICD-10 - E11.65) Dx added from [facility] 03/25/2024 Type 2 diabetes mellitus with diabetic neuropathy, unspecified (ICD-10 - E11.40) Z79.4 LT (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 insulin Z79.85 LT current use of injectable non-insulin diabetic medication Chronic/Stable Improved A1c - Continue checking BS as ordered/directed - Continue medication as prescribed - Recommend yearly eye exams, A1c - Recommend diabetic diet - Discussed potential for end-organ damage with chronic hyperglycemia - F/U with podiatry (as needed/desired) for regular foot checks - Report any sxs of hypo- or hyperglycemia immediately - F/U with PCP/endocrine for ongoing mgmt/monitoring 06/24/2024 Type 2 diabetes mellitus with diabetic neuropathy, unspecified (ICD-10 - E11.40) E11.65 Uncontrolled DM2 with hyperglycemia Z79.4 LT (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 insulin Z79.85 LT current use of injectable non-insulin diabetic medication Chronic/Stable Improved A1c - Continue checking BS as ordered/directed - Continue medication as prescribed - Recommend yearly eye exams, A1c - Recommend diabetic diet - Discussed potential for end-organ damage with chronic hyperglycemia - F/U with podiatry (as needed/desired) for regular foot checks - Report any sxs of hypo- or hyperglycemia immediately - F/U with PCP/endocrine for ongoing mgmt/monitoring 07/07/2024 Type 2 diabetes mellitus with diabetic neuropathy, unspecified (ICD-10 - E11.40) E11.65 Uncontrolled DM2 with hyperglycemia Z79.4 LT (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 insulin Z79.85 LT current use of injectable non-insulin diabetic medication Chronic/Stable Improved A1c - Continue checking BS as ordered/directed - Continue medication as prescribed - Recommend yearly eye exams, A1c - Recommend diabetic diet - Discussed potential for end-organ damage with chronic hyperglycemia - F/U with podiatry (as needed/desired) for regular foot checks - Report any sxs of hypo- or hyperglycemia immediately - F/U with PCP/endocrine for ongoing mgmt/monitoring 07/15/2024 Uncontrolled type 2 diabetes mellitus with hyperglycemia (ICD-10 - E11.65) 07/22/2024 Uncontrolled type 2 diabetes mellitus with hyperglycemia (ICD-10 - E11.65) 07/28/2024 Uncontrolled type 2 diabetes mellitus with hyperglycemia (ICD-10 - E11.65) 08/02/2024 Uncontrolled type 2 diabetes mellitus with hyperglycemia (ICD-10 - E11.65) 08/08/2024 Uncontrolled type 2 diabetes mellitus with hyperglycemia (ICD-10 - E11.65) 08/16/2024 Uncontrolled type 2 diabetes mellitus with hyperglycemia (ICD-10 - E11.65) 08/30/2024 Uncontrolled type 2 diabetes mellitus with hyperglycemia (ICD-10 - E11.65) 08/23/2024 Uncontrolled type 2 diabetes mellitus with hyperglycemia (ICD-10 - E11.65) 03/10/2024 Type 2 diabetes mellitus with diabetic neuropathy, unspecified (ICD-10 - E11.40) 09/01/2024 Displaced trimalleolar fracture of right lower leg, subsequent encounter for closed fracture with routine healing (ICD-10 - S82.851D) 09/15/2024 Displaced trimalleolar fracture of right lower leg, subsequent encounter for closed fracture with routine healing (ICD-10 - S82.851D) 09/22/2024 Displaced trimalleolar fracture of right lower leg, subsequent encounter for closed fracture with routine healing (ICD-10 - S82.851D) 09/29/2024 Displaced trimalleolar fracture of right lower leg, subsequent encounter for closed fracture with routine healing (ICD-10 - S82.851D) 10/07/2024 Displaced trimalleolar fracture of right lower leg, subsequent encounter for closed fracture with routine healing (ICD-10 - S82.851D) 09/08/2024 Displaced trimalleolar fracture of right lower leg, subsequent encounter for closed fracture with routine healing (ICD-10 - S82.851D) 09/08/2024 Skin abrasion (ICD-10 - T14.8XXA) Acute/Improving Reviewed infection control measures, s/s if infection Recommended gentle cleansing with warm soapy water, application of abx ointment bid and cover with bandaide Will continue to monitor 10/07/2024 Skin abrasion (ICD-10 - T14.8XXA) Acute/Improving Reviewed infection control measures, s/s if infection Continue gentle cleansing with warm soapy water, application of abx ointment bid and cover with bandaide as needed Will continue to monitor 09/29/2024 Skin abrasion (ICD-10 - T14.8XXA) Acute/Improving Reviewed infection control measures, s/s if infection Continue gentle cleansing with warm soapy water, application of abx ointment bid and cover with bandaide as needed Will continue to monitor 09/22/2024 Skin abrasion (ICD-10 - T14.8XXA) Acute/Improving Reviewed infection control measures, s/s if infection Recommended gentle cleansing with warm soapy water, application of abx ointment bid and cover with bandaide Will continue to monitor 09/15/2024 Skin abrasion (ICD-10 - T14.8XXA) Acute/Improving Reviewed infection control measures, s/s if infection Recommended gentle cleansing with warm soapy water, application of abx ointment bid and cover with bandaide Will continue to monitor 09/01/2024 Skin abrasion (ICD-10 - T14.8XXA) Acute/Improving Reviewed infection control measures, s/s if infection Recommended gentle cleansing with warm soapy water, application of abx ointment bid and cover with bandaide Will continue to monitor 03/10/2024 Long-term current use of injectable noninsulin antidiabetic medication (ICD-10 - Z79.85) 08/23/2024 Chronic kidney disease, stage 3b (ICD-10 - N18.32) 08/30/2024 Chronic kidney disease, stage 3b (ICD-10 - N18.32) 08/16/2024 Chronic kidney disease, stage 3b (ICD-10 - N18.32) 08/08/2024 Chronic kidney disease, stage 3b (ICD-10 - N18.32) 08/02/2024 Chronic kidney disease, stage 3b (ICD-10 - N18.32) 07/28/2024 Chronic kidney disease, stage 3b (ICD-10 - N18.32) 07/22/2024 Chronic kidney disease, stage 3b (ICD-10 - N18.32) 07/15/2024 Chronic kidney disease, stage 3b (ICD-10 - N18.32) 07/07/2024 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 currently denies urinary s/sx. 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 (ICD-10 - Z79.4) 12/23/2023 RACHNA (generalized anxiety disorder) (ICD-10 - F41.1) 12/16/2023 RACHNA (generalized anxiety disorder) (ICD-10 - F41.1) 12/09/2023 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 (ICD-10 - Z79.4) 11/26/2023 prison (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 insulin (ICD-10 - Z79.4) 12/09/2023 Major depressive disorder, recurrent episode, moderate (ICD-10 - F33.1) F41.1 RACHNA Chronic/Stable - PHQ9/GAD7 completed as above - Reviewed nature of anxiety and depressive sxs - denies sxs of increased worry/sadness - Reviewed nonmedical management techniques - Continue medications as prescribed - Continue outpatient F/U with psych/prescribers and involve [facility] team as appropriate; encouraged to call Chaitanya Shrestha for sooner visit as Angie Mccray does not return from Maternity Leave untile 01/11/2024 - Monitor for increased sxs of depression/anxiety and report acute changes to providers - Utilize emergency services if having sxs of SI/HI/AVH as appropriate 02/24/2024 Major depressive disorder, recurrent episode, moderate (ICD-10 - F33.1) F41.1 RACHNA Chronic/Stable - PHQ2 completed by pcp in office today - negative - Reviewed nature of anxiety and depressive sxs - denies sxs of increased worry/sadness - Reviewed nonmedical management techniques - Continue medications as prescribed - Continue outpatient F/U with psych/prescribers and involve [facility] team as appropriate - Monitor for increased sxs of depression/anxiety and report acute changes to providers - Utilize emergency services if having sxs of SI/HI/AVH as appropriate 04/07/2024 Type 2 diabetes mellitus with diabetic neuropathy, unspecified (ICD-10 - E11.40) Dx added from [facility] 03/25/2024 Major depressive disorder, recurrent episode, moderate (ICD-10 - F33.1) F41.1 RACHNA Chronic/Stable - Reviewed nature of anxiety and depressive sxs - reports increased worry as in HPI - Reviewed nonmedical management techniques - Continue medications as prescribed - Continue outpatient F/U with psych/prescribers and involve [facility] team as appropriate - Monitor for increased sxs of depression/anxiety and report acute changes to providers - Utilize emergency services if having sxs of SI/HI/AVH as appropriate 06/24/2024 Major depressive disorder, recurrent episode, moderate (ICD-10 - F33.1) F41.1 RACHNA Chronic/Stable - Reviewed nature of anxiety and depressive sxs - Reminded to schedule f/u with Angie Mccray prescriber and to f/u with new therapist in community as referred by Angie - Reviewed nonmedical management techniques - Continue medications as prescribed - Continue outpatient F/U with psych/prescribers and involve [facility] team as appropriate - Monitor for increased sxs of depression/anxiety and report acute changes to providers - Utilize emergency services if having sxs of SI/HI/AVH as appropriate 07/07/2024 Major depressive disorder, recurrent episode, moderate (ICD-10 - F33.1) F41.1 RACHNA Chronic/Stable - Reviewed nature of anxiety and depressive sxs - Reminded to schedule f/u with Angie Mccray prescriber and to f/u with new therapist in community as referred by Angie - Reviewed nonmedical management techniques - Continue medications as prescribed - Continue outpatient F/U with psych/prescribers and involve [facility] team as appropriate - Monitor for increased sxs of depression/anxiety and report acute changes to providers - Utilize emergency services if having sxs of SI/HI/AVH as appropriate 07/15/2024 Morbid (severe) obesity due to excess calories (ICD-10 - E66.01) Z68.41 BMI 40.0-44.9, adult Chronic/Not Controlled - Weight gain since home from [facility] - Avoid gaining additional weight and try to lose weight, if possible - Eat a healthy diet rich in fruits, vegetables, and whole grains, practice portion control, and avoid high calorie snacks and drinks - Educated member on health risks related to obesity including cardiac, joint, and cancer - Remain as physically active as possible - Counseled normal BMI 18.5-24.9 and BMI > 25 has risk factors of ASCVD complications - Other behaviors that help in losing weight and maintaining a healthy weight include: controlling the environment to remove triggers for overeating, like eating out, snacks, ads on TV, etc.; setting a long-term goal, and then breaking it down into short-term goals; tracking progress in a journal; using nonfood rewards when goals are reached or for motivation - Continue to monitor weights with PCP 07/22/2024 Morbid (severe) obesity due to excess calories (ICD-10 - E66.01) Z68.41 BMI 40.0-44.9, adult Chronic/Not Controlled - Weight gain since home from [facility] - Avoid gaining additional weight and try to lose weight, if possible - Eat a healthy diet rich in fruits, vegetables, and whole grains, practice portion control, and avoid high calorie snacks and drinks - Educated member on health risks related to obesity including cardiac, joint, and cancer - Remain as physically active as possible - Counseled normal BMI 18.5-24.9 and BMI > 25 has risk factors of ASCVD complications - Other behaviors that help in losing weight and maintaining a healthy weight include: controlling the environment to remove triggers for overeating, like eating out, snacks, ads on TV, etc.; setting a long-term goal, and then breaking it down into short-term goals; tracking progress in a journal; using nonfood rewards when goals are reached or for motivation - Continue to monitor weights with PCP 07/28/2024 Morbid (severe) obesity due to excess calories (ICD-10 - E66.01) Z68.41 BMI 40.0-44.9, adult Chronic/Not Controlled - Weight gain since home from [facility] - Avoid gaining additional weight and try to lose weight, if possible - Eat a healthy diet rich in fruits, vegetables, and whole grains, practice portion control, and avoid high calorie snacks and drinks - Educated member on health risks related to obesity including cardiac, joint, and cancer - Remain as physically active as possible - Counseled normal BMI 18.5-24.9 and BMI > 25 has risk factors of ASCVD complications - Other behaviors that help in losing weight and maintaining a healthy weight include: controlling the environment to remove triggers for overeating, like eating out, snacks, ads on TV, etc.; setting a long-term goal, and then breaking it down into short-term goals; tracking progress in a journal; using nonfood rewards when goals are reached or for motivation - Continue to monitor weights with PCP 08/02/2024 Morbid (severe) obesity due to excess calories (ICD-10 - E66.01) Z68.41 BMI 40.0-44.9, adult Chronic/Not Controlled - Weight gain since home from [facility] - Avoid gaining additional weight and try to lose weight, if possible - Eat a healthy diet rich in fruits, vegetables, and whole grains, practice portion control, and avoid high calorie snacks and drinks - Educated member on health risks related to obesity including cardiac, joint, and cancer - Remain as physically active as possible - Counseled normal BMI 18.5-24.9 and BMI > 25 has risk factors of ASCVD complications - Other behaviors that help in losing weight and maintaining a healthy weight include: controlling the environment to remove triggers for overeating, like eating out, snacks, ads on TV, etc.; setting a long-term goal, and then breaking it down into short-term goals; tracking progress in a journal; using nonfood rewards when goals are reached or for motivation - Continue to monitor weights with PCP 08/08/2024 Morbid (severe) obesity due to excess calories (ICD-10 - E66.01) Z68.41 BMI 40.0-44.9, adult Chronic/Not Controlled - Weight gain since home from [facility] - Avoid gaining additional weight and try to lose weight, if possible - Eat a healthy diet rich in fruits, vegetables, and whole grains, practice portion control, and avoid high calorie snacks and drinks - Educated member on health risks related to obesity including cardiac, joint, and cancer - Remain as physically active as possible - Counseled normal BMI 18.5-24.9 and BMI > 25 has risk factors of ASCVD complications - Other behaviors that help in losing weight and maintaining a healthy weight include: controlling the environment to remove triggers for overeating, like eating out, snacks, ads on TV, etc.; setting a long-term goal, and then breaking it down into short-term goals; tracking progress in a journal; using nonfood rewards when goals are reached or for motivation - Continue to monitor weights with PCP 08/16/2024 Morbid (severe) obesity due to excess calories (ICD-10 - E66.01) Z68.41 BMI 40.0-44.9, adult Chronic/Not Controlled - Weight gain since home from [facility] - Avoid gaining additional weight and try to lose weight, if possible - Eat a healthy diet rich in fruits, vegetables, and whole grains, practice portion control, and avoid high calorie snacks and drinks - Educated member on health risks related to obesity including cardiac, joint, and cancer - Remain as physically active as possible - Counseled normal BMI 18.5-24.9 and BMI > 25 has risk factors of ASCVD complications - Other behaviors that help in losing weight and maintaining a healthy weight include: controlling the environment to remove triggers for overeating, like eating out, snacks, ads on TV, etc.; setting a long-term goal, and then breaking it down into short-term goals; tracking progress in a journal; using nonfood rewards when goals are reached or for motivation - Continue to monitor weights with PCP 08/30/2024 Morbid (severe) obesity due to excess calories (ICD-10 - E66.01) Z68.41 BMI 40.0-44.9, adult Chronic/Not Controlled - Weight gain since home from [facility] - Avoid gaining additional weight and try to lose weight, if possible - Eat a healthy diet rich in fruits, vegetables, and whole grains, practice portion control, and avoid high calorie snacks and drinks - Educated member on health risks related to obesity including cardiac, joint, and cancer - Remain as physically active as possible - Counseled normal BMI 18.5-24.9 and BMI > 25 has risk factors of ASCVD complications - Other behaviors that help in losing weight and maintaining a healthy weight include: controlling the environment to remove triggers for overeating, like eating out, snacks, ads on TV, etc.; setting a long-term goal, and then breaking it down into short-term goals; tracking progress in a journal; using nonfood rewards when goals are reached or for motivation - Continue to monitor weights with PCP 08/23/2024 Morbid (severe) obesity due to excess calories (ICD-10 - E66.01) Z68.41 BMI 40.0-44.9, adult Chronic/Not Controlled - Weight gain since home from [facility] - Avoid gaining additional weight and try to lose weight, if possible - Eat a healthy diet rich in fruits, vegetables, and whole grains, practice portion control, and avoid high calorie snacks and drinks - Educated member on health risks related to obesity including cardiac, joint, and cancer - Remain as physically active as possible - Counseled normal BMI 18.5-24.9 and BMI > 25 has risk factors of ASCVD complications - Other behaviors that help in losing weight and maintaining a healthy weight include: controlling the environment to remove triggers for overeating, like eating out, snacks, ads on TV, etc.; setting a long-term goal, and then breaking it down into short-term goals; tracking progress in a journal; using nonfood rewards when goals are reached or for motivation - Continue to monitor weights with PCP 03/10/2024 prison (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 insulin (ICD-10 - Z79.4) 09/01/2024 Major depressive disorder, recurrent episode, moderate (ICD-10 - F33.1) 09/15/2024 Major depressive disorder, recurrent episode, moderate (ICD-10 - F33.1) 09/22/2024 Major depressive disorder, recurrent episode, moderate (ICD-10 - F33.1) 09/29/2024 Major depressive disorder, recurrent episode, moderate (ICD-10 - F33.1) 10/07/2024 Major depressive disorder, recurrent episode, moderate (ICD-10 - F33.1) 09/08/2024 Major depressive disorder, recurrent episode, moderate (ICD-10 - F33.1) 10/07/2024 Type 2 diabetes mellitus with diabetic neuropathy, unspecified (ICD-10 - E11.40) 11.65 Uncontrolled T2DM with hyperglycemia E66.01 Obesity Z79.4 LT use of insulin Z79.85 LT use of injectable non-insulin antidiabetic me Chronic/Labile Sugars are variable based on diet - Continue check BG as ordered/directed; recommended but declines CGM - Continue medication as prescribed - [facility] - Recommend yearly eye exams, A1c - Recommend diabetic diet - offered referral to family educator - declines - Discussed potential for end-organ damage with chronic hyperglycemia - F/U with podiatry (as needed/desired) for regular foot checks - Report any sxs of hypo- or hyperglycemia immediately - F/U with PCP/endocrine for ongoing mgmt/monitoring 09/29/2024 Type 2 diabetes mellitus with diabetic neuropathy, unspecified (ICD-10 - E11.40) 11.65 Uncontrolled T2DM with hyperglycemia E66.01 Obesity Z79.4 LT use of insulin Z79.85 LT use of injectable non-insulin antidiabetic me Chronic/Labile Sugars are variable based on diet - Continue check BG as ordered/directed; recommended but declines CGM - Continue medication as prescribed - Novolog per , [facility] weekly - Recommend yearly eye exams, A1c - Recommend diabetic diet - offered referral to family educator - declines - Discussed potential for end-organ damage with chronic hyperglycemia - F/U with podiatry (as needed/desired) for regular foot checks - Report any sxs of hypo- or hyperglycemia immediately - F/U with PCP/endocrine for ongoing mgmt/monitoring 09/22/2024 Type 2 diabetes mellitus with diabetic neuropathy, unspecified (ICD-10 - E11.40) 11.65 Uncontrolled T2DM with hyperglycemia E66.01 Obesity Z79.4 LT use of insulin Z79.85 LT use of injectable non-insulin antidiabetic me Chronic/Labile Sugars are variable based on diet; today 212 - Continue check BG as ordered/directed; recommended but declines CGM - Continue medication as prescribed - Novolog per SS - Recommend yearly eye exams, A1c - Recommend diabetic diet - Discussed potential for end-organ damage with chronic hyperglycemia - F/U with podiatry (as needed/desired) for regular foot checks - Report any sxs of hypo- or hyperglycemia immediately - F/U with PCP/endocrine for ongoing mgmt/monitoring 09/15/2024 Type 2 diabetes mellitus with diabetic neuropathy, unspecified (ICD-10 - E11.40) 11.65 Uncontrolled T2DM with hyperglycemia E66.01 Obesity Z79.4 LT use of insulin Z79.85 LT use of injectable non-insulin antidiabetic me Chronic/Labile Sugars are variable based on diet; today 212 - Continue check BG as ordered/directed; recommended but declines CGM - Continue medication as prescribed - Novolog per SS - Recommend yearly eye exams, A1c - Recommend diabetic diet - Discussed potential for end-organ damage with chronic hyperglycemia - F/U with podiatry (as needed/desired) for regular foot checks - Report any sxs of hypo- or hyperglycemia immediately - F/U with PCP/endocrine for ongoing mgmt/monitoring 08/23/2024 Body mass index [BMI] 40.0-44.9, adult (ICD-10 - Z68.41) 08/30/2024 Body mass index [BMI] 40.0-44.9, adult (ICD-10 - Z68.41) 08/16/2024 Body mass index [BMI] 40.0-44.9, adult (ICD-10 - Z68.41) 08/08/2024 Body mass index [BMI] 40.0-44.9, adult (ICD-10 - Z68.41) 08/02/2024 Body mass index [BMI] 40.0-44.9, adult (ICD-10 - Z68.41) 07/28/2024 Body mass index [BMI] 40.0-44.9, adult (ICD-10 - Z68.41) 07/22/2024 Body mass index [BMI] 40.0-44.9, adult (ICD-10 - Z68.41) 07/15/2024 Body mass index [BMI] 40.0-44.9, adult (ICD-10 - Z68.41) 07/07/2024 Mixed incontinence (ICD-10 - N39.46) 06/24/2024 Mixed incontinence (ICD-10 - N39.46) 03/25/2024 Mixed incontinence (ICD-10 - N39.46) 04/07/2024 Major depressive disorder, recurrent episode, moderate (ICD-10 - F33.1) Dx added from [facility] 02/24/2024 Mixed incontinence (ICD-10 - N39.46) 12/09/2023 RACHNA (generalized anxiety disorder) (ICD-10 - F41.1) 02/24/2024 Recurrent UTI (urinary tract infection) (ICD-10 - N39.0) N39.46 Mixed incontinence Chronic/Labile Member uses pads on a daily basis. - Educated member to watch for signs of skin breakdown, and UTI (fever, pain or odor w/ urination, flank pain), call provider w/ any new symptoms - member reports frequent UTI. currenlty denies urinary s/sx. Denies pain or buring while urinating, frequent urination, feeling the need to urinate despite emptying bladder, hematuria, abdominal pressure or cramps - counseled on UTI preventions - void pre/post intercourse, stay well hydrated, take showers instead of baths, minimize douching in genital area, and wiping front to back - Member will follow up with PCP routinely and urologist as soon as possible and will continue to monitor s/sx UTIs 04/07/2024 Mixed incontinence (ICD-10 - N39.46) Dx added from [facility] 03/25/2024 Recurrent UTI (urinary tract infection) (ICD-10 - N39.0) N39.46 Mixed incontinence Chronic/Labile Member uses pads on a daily basis. - Educated member to watch for signs of skin breakdown, and UTI (fever, pain or odor w/ urination, flank pain), call provider w/ any new symptoms - member reports frequent UTI. currenlty denies urinary s/sx. Denies pain or buring while urinating, frequent urination, feeling the need to urinate despite emptying bladder, hematuria, abdominal pressure or cramps - counseled on UTI preventions - void pre/post intercourse, stay well hydrated, take showers instead of baths, minimize douching in genital area, and wiping front to back - Member will follow up with PCP routinely and urologist as soon as possible and will continue to monitor s/sx UTIs 06/24/2024 Recurrent UTI (urinary tract infection) (ICD-10 - N39.0) N39.46 Mixed incontinence Chronic/Labile Member uses pads on a daily basis. - Educated member to watch for signs of skin breakdown, and UTI (fever, pain or odor w/ urination, flank pain), call provider w/ any new symptoms - member reports frequent UTI. currenlty denies urinary s/sx. Denies pain or buring while urinating, frequent urination, feeling the need to urinate despite emptying bladder, hematuria, abdominal pressure or cramps - counseled on UTI preventions - void pre/post intercourse, stay well hydrated, take showers instead of baths, minimize douching in genital area, and wiping front to back - Member will follow up with PCP routinely and urologist as soon as possible and will continue to monitor s/sx UTIs 07/07/2024 Recurrent UTI (urinary tract infection) (ICD-10 - N39.0) N39.46 Mixed incontinence Chronic/Labile Member uses pads on a daily basis. - Educated member to watch for signs of skin breakdown, and UTI (fever, pain or odor w/ urination, flank pain), call provider w/ any new symptoms - member reports frequent UTI. currenlty denies urinary s/sx. 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 (ICD-10 - Z79.4) 07/28/2024 prison (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 insulin (ICD-10 - Z79.4) 08/02/2024 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 (ICD-10 - Z79.4) 08/08/2024 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 (ICD-10 - Z79.4) 08/16/2024 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 (ICD-10 - Z79.4) 08/30/2024 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 (ICD-10 - Z79.4) 08/23/2024 prison (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 insulin (ICD-10 - Z79.4) 09/15/2024 Uncontrolled type 2 diabetes mellitus with hyperglycemia (ICD-10 - E11.65) 09/22/2024 Uncontrolled type 2 diabetes mellitus with hyperglycemia (ICD-10 - E11.65) 09/29/2024 Uncontrolled type 2 diabetes mellitus with hyperglycemia (ICD-10 - E11.65) 10/07/2024 Uncontrolled type 2 diabetes mellitus with hyperglycemia (ICD-10 - E11.65) 10/07/2024 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 kidney disease, or unspecified chronic kidney disease (ICD-10 - I13.0) I50.32 Chr diastolic HF N18.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 Encouraged heart healthy diet, reduced intake of salt, saturated fat (animal fat, beef fat) and trans fat. Educated to avoid NSAIDS due to CKD. Reviewed the importance of preventing further kidney damage by controlling BP. 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 Encouraged heart healthy diet, reduced intake of salt, saturated fat (animal fat, beef fat) and trans fat. Educated to avoid NSAIDS due to CKD. Reviewed the importance of preventing further kidney damage by controlling BP. 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 Encouraged heart healthy diet, reduced intake of salt, saturated fat (animal fat, beef fat) and trans fat. Educated to avoid NSAIDS due to CKD. Reviewed the importance of preventing further kidney damage by controlling BP. 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 Encouraged heart healthy diet, reduced intake of salt, saturated fat (animal fat, beef fat) and trans fat. Educated to avoid NSAIDS due to CKD. Reviewed the importance of preventing further kidney damage by controlling BP. Continue to f/u with PCP/Paint Mixer Machine routinely 08/23/2024 Long-term current use of injectable noninsulin antidiabetic medication (ICD-10 - Z79.85) 08/30/2024 Long-term current use of injectable noninsulin antidiabetic medication (ICD-10 - Z79.85) 08/16/2024 Long-term current use of injectable noninsulin antidiabetic medication (ICD-10 - Z79.85) 08/08/2024 Long-term current use of injectable noninsulin antidiabetic medication (ICD-10 - Z79.85) 08/02/2024 Long-term current use of injectable noninsulin antidiabetic medication (ICD-10 - Z79.85) 07/28/2024 Long-term current use of injectable noninsulin antidiabetic medication (ICD-10 - Z79.85) 07/22/2024 Long-term current use of injectable noninsulin antidiabetic medication (ICD-10 - Z79.85) 07/15/2024 Long-term current use of injectable noninsulin antidiabetic medication (ICD-10 - Z79.85) 07/07/2024 RACHNA (generalized anxiety disorder) (ICD-10 - F41.1) 06/24/2024 RACHNA (generalized anxiety disorder) (ICD-10 - F41.1) 03/25/2024 RACHNA (generalized anxiety disorder) (ICD-10 - F41.1) 04/07/2024 Restless legs syndrome (RLS) (ICD-10 - G25.81) Dx added from [facility] 02/24/2024 RACHNA (generalized anxiety disorder) (ICD-10 - F41.1) 02/24/2024 ALDO on CPAP (ICD-10 - G47.33) Chronic/Stable Patient reports adherence with CPAP. Continue CPAP as ordered. Follow up with PCP if symptoms of headache, sleep deprivation, lethargy or increased fatigue occur. Education provided on behavior modification. Advised that weight loss and light exercise can help with sleep apnea. Encouraged member to continue with avoiding alcohol as it can depress the central nervous system, exacerbate ALDO, worsen sleepiness, and promote weight gain. Commended patient for adherence to CPAP, advised that accumulating evidence suggests that successful treatment of ALDO with continuous positive airway pressure (CPAP) can improve cardiovascular outcomes as well. 04/07/2024 RACHNA (generalized anxiety disorder) (ICD-10 - F41.1) Dx added from [facility] 03/25/2024 ALDO on CPAP (ICD-10 - G47.33) Chronic/Stable Patient reports adherence with CPAP. Continue CPAP as ordered. Follow up with PCP if symptoms of headache, sleep deprivation, lethargy or increased fatigue occur. Education provided on behavior modification. Advised that weight loss and light exercise can help with sleep apnea. Encouraged member to continue with avoiding alcohol as it can depress the central nervous system, exacerbate ALDO, worsen sleepiness, and promote weight gain. Commended patient for adherence to CPAP, advised that accumulating evidence suggests that successful treatment of ALDO with continuous positive airway pressure (CPAP) can improve cardiovascular outcomes as well. 06/24/2024 ALDO on CPAP (ICD-10 - G47.33) Chronic/Stable Patient reports adherence with CPAP. Continue CPAP as ordered. Follow up with PCP if symptoms of headache, sleep deprivation, lethargy or increased fatigue occur. Education provided on behavior modification. Advised that weight loss and light exercise can help with sleep apnea. Encouraged member to continue with avoiding alcohol as it can depress the central nervous system, exacerbate ALDO, worsen sleepiness, and promote weight gain. Commended patient for adherence to CPAP, advised that accumulating evidence suggests that successful treatment of ALDO with continuous positive airway pressure (CPAP) can improve cardiovascular outcomes as well. 07/07/2024 ALDO on CPAP (ICD-10 - G47.33) Chronic/Stable Patient reports adherence with CPAP. Continue CPAP as ordered. Follow up with PCP if symptoms of headache, sleep deprivation, lethargy or increased fatigue occur. Education provided on behavior modification. Advised that weight loss and light exercise can help with sleep apnea. Encouraged member to continue with avoiding alcohol as it can depress the central nervous system, exacerbate ALDO, worsen sleepiness, and promote weight gain. Commended patient for adherence to CPAP, advised that accumulating evidence suggests that successful treatment of ALDO with continuous positive airway pressure (CPAP) can improve cardiovascular outcomes as well. 07/15/2024 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 kidney disease, or unspecified chronic kidney disease (ICD-10 - I13.0) N18.32 CKD, 3b Chronic/Stable - Continue ongoing DM mgmt to help prevent progression of disease - Continue ongoing HTN mgmt to help prevent progression of disease - Continue ongoing dietary control and healthy eating choices - reviewed DASH and ADA diets - Avoid nephrotoxic meds where possible and renally adjust meds where clinically appropriate - F/U with PCP/nephro for ongoing monitoring/mgmt 07/22/2024 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 kidney disease, or unspecified chronic kidney disease (ICD-10 - I13.0) N18.32 CKD, 3b Chronic/Stable - Continue ongoing DM mgmt to help prevent progression of disease - Continue ongoing HTN mgmt to help prevent progression of disease - Continue ongoing dietary control and healthy eating choices - reviewed DASH and ADA diets - Avoid nephrotoxic meds where possible and renally adjust meds where clinically appropriate - F/U with PCP/nephro for ongoing monitoring/mgmt 07/28/2024 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 kidney disease, or unspecified chronic kidney disease (ICD-10 - I13.0) N18.32 CKD, 3b Chronic/Stable - Continue ongoing DM mgmt to help prevent progression of disease - Continue ongoing HTN mgmt to help prevent progression of disease - Continue ongoing dietary control and healthy eating choices - reviewed DASH and ADA diets - Avoid nephrotoxic meds where possible and renally adjust meds where clinically appropriate - F/U with PCP/nephro for ongoing monitoring/mgmt 08/02/2024 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 kidney disease, or unspecified chronic kidney disease (ICD-10 - I13.0) N18.32 CKD, 3b Chronic/Stable - Continue ongoing DM mgmt to help prevent progression of disease - Continue ongoing HTN mgmt to help prevent progression of disease - Continue ongoing dietary control and healthy eating choices - reviewed DASH and ADA diets - Avoid nephrotoxic meds where possible and renally adjust meds where clinically appropriate - F/U with PCP/nephro for ongoing monitoring/mgmt 08/08/2024 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 kidney disease, or unspecified chronic kidney disease (ICD-10 - I13.0) N18.32 CKD, 3b Chronic/Stable - Continue ongoing DM mgmt to help prevent progression of disease - Continue ongoing HTN mgmt to help prevent progression of disease - Continue ongoing dietary control and healthy eating choices - reviewed DASH and ADA diets - Avoid nephrotoxic meds where possible and renally adjust meds where clinically appropriate - F/U with PCP/nephro for ongoing monitoring/mgmt 08/16/2024 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 kidney disease, or unspecified chronic kidney disease (ICD-10 - I13.0) N18.32 CKD, 3b Chronic/Stable - Continue ongoing DM mgmt to help prevent progression of disease - Continue ongoing HTN mgmt to help prevent progression of disease - Continue ongoing dietary control and healthy eating choices - reviewed DASH and ADA diets - Avoid nephrotoxic meds where possible and renally adjust meds where clinically appropriate - F/U with PCP/nephro for ongoing monitoring/mgmt 08/30/2024 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 kidney disease, or unspecified chronic kidney disease (ICD-10 - I13.0) N18.32 CKD, 3b Chronic/Stable - Continue ongoing DM mgmt to help prevent progression of disease - Continue ongoing HTN mgmt to help prevent progression of disease - Continue ongoing dietary control and healthy eating choices - reviewed DASH and ADA diets - Avoid nephrotoxic meds where possible and renally adjust meds where clinically appropriate - F/U with PCP/nephro for ongoing monitoring/mgmt 08/23/2024 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 kidney disease, or unspecified chronic kidney disease (ICD-10 - I13.0) N18.32 CKD, 3b Chronic/Stable - Continue ongoing DM mgmt to help prevent progression of disease - Continue ongoing HTN mgmt to help prevent progression of disease - Continue ongoing dietary control and healthy eating choices - reviewed DASH and ADA diets - Avoid nephrotoxic meds where possible and renally adjust meds where clinically appropriate - F/U with PCP/nephro for ongoing monitoring/mgmt 09/15/2024 Chronic diastolic (congestive) heart failure (ICD-10 - I50.32) 09/22/2024 Chronic diastolic (congestive) heart failure (ICD-10 - I50.32) 09/29/2024 Chronic diastolic (congestive) heart failure (ICD-10 - I50.32) 10/07/2024 Chronic diastolic (congestive) heart failure (ICD-10 - I50.32) 10/07/2024 COPD (chronic obstructive pulmonary disease) (ICD-10 - J44.9) Z99.81 O2 dependent Chronic/Stable - Member appears stable during visit without sxs of exacerbation - Continue medications and inhalers as prescribed - Educated member on importance of O2 use as prescribed - Avoid triggers as possible - Monitor for increased dyspnea or productive cough as first signs of exacerbation - Report any changes in symptoms or worsening SOB to providers/PCP/pulm 09/29/2024 COPD (chronic obstructive pulmonary disease) (ICD-10 - J44.9) Z99.81 O2 dependent Chronic/Stable - Member appears stable during visit without sxs of exacerbation - Continue medications and inhalers as prescribed - Educated member on importance of O2 use as prescribed - Avoid triggers as possible - Monitor for increased dyspnea or productive cough as first signs of exacerbation - Report any changes in symptoms or worsening SOB to providers/PCP/pulm 09/22/2024 COPD (chronic obstructive pulmonary disease) (ICD-10 - J44.9) Z99.81 O2 dependent Chronic/Stable - Member appears stable during visit without sxs of exacerbation - Continue medications and inhalers as prescribed - Educated member on importance of O2 use as prescribed - Avoid triggers as possible - Monitor for increased dyspnea or productive cough as first signs of exacerbation - Report any changes in symptoms or worsening SOB to providers/PCP/pulm 09/15/2024 COPD (chronic obstructive pulmonary disease) (ICD-10 - J44.9) Z99.81 O2 dependent Chronic/Stable - Member appears stable during visit without sxs of exacerbation - Continue medications and inhalers as prescribed - Educated member on importance of O2 use as prescribed - Avoid triggers as possible - Monitor for increased dyspnea or productive cough as first signs of exacerbation - Report any changes in symptoms or worsening SOB to providers/PCP/pulm 08/23/2024 Other chronic pain (ICD-10 - G89.29) M17.12 Unilateral primary OA of L knee M47.819 Arthritis, low back S82.851D displaced trimalleolar fracture or RLE, subsequent encounter with routine healing Chronic/Stable - Pain/stiffness in multiple joints at baseline - Educated to exercise regularly (low impact) for short periods as tolerated and PT/rehab may be helpful with movement and reduce pain/stress on joints - Will start outpatient PT at [facility] by next week. - Use assistive devices to avoid falls d/t pain and stiffness as needed - Avoid heavy lifting or overuse of joints - Continue medications as prescribed - Use heat and/or cold to reduce pain/stiffness if helpful, for short periods only (<15 minutes) to avoid skin damage - Inform providers if pain worsens and report any acute changes to providers if pain is not managed - F/U with PCP/rheum/ortho as directed -[facility] ORDER FOR HOME PEDAL DEVICE THROUGH [facility] 08/30/2024 Other chronic pain (ICD-10 - G89.29) M17.12 Unilateral primary OA of L knee M47.819 Arthritis, low back S82.851D displaced trimalleolar fracture or RLE, subsequent encounter with routine healing Chronic/Stable - Pain/stiffness in multiple joints at baseline - Educated to exercise regularly (low impact) for short periods as tolerated and PT/rehab may be helpful with movement and reduce pain/stress on joints - Will start outpatient PT at [facility] by next week. - Use assistive devices to avoid falls d/t pain and stiffness as needed - Avoid heavy lifting or overuse of joints - Continue medications as prescribed - Use heat and/or cold to reduce pain/stiffness if helpful, for short periods only (<15 minutes) to avoid skin damage - Inform providers if pain worsens and report any acute changes to providers if pain is not managed - F/U with PCP/rheum/ortho as directed -[facility] ORDER FOR HOME PEDAL DEVICE THROUGH [facility] 08/16/2024 Other chronic pain (ICD-10 - G89.29) M17.12 Unilateral primary OA of L knee M47.819 Arthritis, low back S82.851D displaced trimalleolar fracture or RLE, subsequent encounter with routine healing Chronic/Stable - Pain/stiffness in multiple joints at baseline - Educated to exercise regularly (low impact) for short periods as tolerated and PT/rehab may be helpful with movement and reduce pain/stress on joints - Will start outpatient PT at [facility] by next week. - Use assistive devices to avoid falls d/t pain and stiffness as needed - Avoid heavy lifting or overuse of joints - Continue medications as prescribed - Use heat and/or cold to reduce pain/stiffness if helpful, for short periods only (<15 minutes) to avoid skin damage - Inform providers if pain worsens and report any acute changes to providers if pain is not managed - F/U with PCP/rheum/ortho as directed -[facility] ORDER FOR HOME PEDAL DEVICE THROUGH [facility] 08/08/2024 Other chronic pain (ICD-10 - G89.29) M17.12 Unilateral primary OA of L knee M47.819 Arthritis, low back S82.851D displaced trimalleolar fracture or RLE, subsequent encounter with routine healing Chronic/Stable - Pain/stiffness in multiple joints at baseline - Educated to exercise regularly (low impact) for short periods as tolerated and PT/rehab may be helpful with movement and reduce pain/stress on joints - Will start outpatient PT at [facility] by next week. 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) 03/25/2024 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) 04/07/2024 ALDO on CPAP (ICD-10 - G47.33) Dx added from [facility] 02/24/2024 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) 02/24/2024 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 Stenosis of lacrimal ducts Z98.890 S/p Eye surgery Acute/Improving - bruising to be expected Lacrimal drain in place right eye Continue warm compresses, warm water gentle cleanse Advised to report any fever, eye pain, acute vision changes, purulent drainage, malcolm orbital or conjuctival erythema F/u with opthalmologist as planned 04/07/2024 Extrapyramidal disorder (ICD-10 - G25.9) Dx added from [facility] 03/25/2024 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 Stenosis of lacrimal duct Chronic/Stable Advised to report any fever, eye pain, acute vision changes, purulent drainage, malcolm orbital or conjuctival erythema F/u with opthalmologist as planned 06/24/2024 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 Stenosis of lacrimal duct Chronic/Stable Advised to report any fever, eye pain, acute vision changes, purulent drainage, malcolm orbital or conjuctival erythema F/u with opthalmologist as planned 07/07/2024 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 Stenosis of lacrimal duct Chronic/Stable Advised to report any fever, eye pain, acute vision changes, purulent drainage, malcolm orbital or conjuctival erythema F/u with opthalmologist as planned 08/08/2024 Unilateral primary osteoarthritis, left knee (ICD-10 - M17.12) 08/16/2024 Unilateral primary osteoarthritis, left knee (ICD-10 - M17.12) 08/30/2024 Unilateral primary osteoarthritis, left knee (ICD-10 - M17.12) 08/23/2024 Unilateral primary osteoarthritis, left knee (ICD-10 - M17.12) 09/15/2024 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) 09/22/2024 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) 09/29/2024 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) 10/07/2024 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) 10/07/2024 prison (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 insulin (ICD-10 - Z79.4) 09/29/2024 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 (ICD-10 - Z79.4) 09/22/2024 prison (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 insulin (ICD-10 - Z79.4) 09/15/2024 prison (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 insulin (ICD-10 - Z79.4) 08/23/2024 Arthritis, low back (ICD-10 - M47.819) 08/30/2024 Arthritis, low back (ICD-10 - M47.819) 08/16/2024 Arthritis, low back (ICD-10 - M47.819) 08/08/2024 Arthritis, low back (ICD-10 - M47.819) 07/07/2024 Long-term current use of injectable noninsulin antidiabetic medication (ICD-10 - Z79.85) 06/24/2024 Long-term current use of injectable noninsulin antidiabetic medication (ICD-10 - Z79.85) 03/25/2024 S/P eye surgery (ICD-10 - Z98.890) 04/07/2024 Recurrent UTI (urinary tract infection) (ICD-10 - N39.0) Dx added from [facility] 02/24/2024 S/P eye surgery (ICD-10 - Z98.890) 02/24/2024 Long-term current use of injectable noninsulin antidiabetic medication (ICD-10 - Z79.85) 04/07/2024 COPD exacerbation (ICD-10 - J44.1) Dx added from [facility] 03/25/2024 Long-term current use of injectable noninsulin antidiabetic medication (ICD-10 - Z79.85) 06/24/2024 Restless legs syndrome (RLS) (ICD-10 - G25.81) Chronic/Stable - continue same meds - counseled on getting up and moving around helps the unpleasant feeling temporarily go away, physical exercise, relaxation techniques, massage - f/u PCP prn 07/07/2024 Restless legs syndrome (RLS) (ICD-10 - G25.81) Chronic/Stable - continue same meds - counseled on getting up and moving around helps the unpleasant feeling temporarily go away, physical exercise, relaxation techniques, massage - f/u PCP prn 08/08/2024 Displaced trimalleolar fracture of right lower leg, subsequent encounter for closed fracture with routine healing (ICD-10 - S82.851D) 08/16/2024 Displaced trimalleolar fracture of right lower leg, subsequent encounter for closed fracture with routine healing (ICD-10 - S82.851D) 08/30/2024 Displaced trimalleolar fracture of right lower leg, subsequent encounter for closed fracture with routine healing (ICD-10 - S82.851D) 08/23/2024 Displaced trimalleolar fracture of right lower leg, subsequent encounter for closed fracture with routine healing (ICD-10 - S82.851D) 09/15/2024 Long-term current use of injectable noninsulin antidiabetic medication (ICD-10 - Z79.85) 09/22/2024 Long-term current use of injectable noninsulin antidiabetic medication (ICD-10 - Z79.85) 09/29/2024 Long-term current use of injectable noninsulin antidiabetic medication (ICD-10 - Z79.85) 10/07/2024 Long-term current use of injectable noninsulin antidiabetic medication (ICD-10 - Z79.85) 10/07/2024 Chronic kidney disease, stage 3b (ICD-10 - N18.32) 09/29/2024 Chronic kidney disease, stage 3b (ICD-10 - N18.32) 09/22/2024 Chronic kidney disease, stage 3b (ICD-10 - N18.32) 09/15/2024 Chronic kidney disease, stage 3b (ICD-10 - N18.32) 08/30/2024 Skin abrasion (ICD-10 - T14.8XXA) Acute/Improving Reviewed infection control measures, s/s if infection Recommended gentle cleansing with warm soapy water, application of abx ointment bid and cover with bandaide Will continue to monitor 07/07/2024 Polymyalgia rheumatica (ICD-10 - M35.3) 06/24/2024 Polymyalgia rheumatica (ICD-10 - M35.3) 03/25/2024 Restless legs syndrome (RLS) (ICD-10 - G25.81) Chronic/Stable - continue same meds - counseled on getting up and moving around helps the unpleasant feeling temporarily go away, physical exercise, relaxation techniques, massage - f/u PCP prn 04/07/2024 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 Use assistive devices (cane, walker) to avoid falls d/t pain and stiffness. Avoid heavy lifting or overuse of joints. Use heat and/or cold to reduce pain/stiffness if helpful, for short periods only (<15 minutes) to avoid skin damage. F/u with PCP as scheduled Will continue to monitor 06/24/2024 Uncontrolled type 2 diabetes mellitus with hyperglycemia (ICD-10 - E11.65) 07/07/2024 Uncontrolled type 2 diabetes mellitus with hyperglycemia (ICD-10 - E11.65) 09/15/2024 Morbid (severe) obesity due to excess calories (ICD-10 - E66.01) 09/22/2024 Morbid (severe) obesity due to excess calories (ICD-10 - E66.01) 09/29/2024 Morbid (severe) obesity due to excess calories (ICD-10 - E66.01) 10/07/2024 Morbid (severe) obesity due to excess calories (ICD-10 - E66.01) 07/07/2024 Extrapyramidal disorder (ICD-10 - G25.9) 06/24/2024 Extrapyramidal disorder (ICD-10 - G25.9) 04/07/2024 Long-term current use of injectable noninsulin antidiabetic medication (ICD-10 - Z79.85) Dx added from [facility] 04/07/2024 COVID-19 virus infection (ICD-10 - U07.1) Dx added from [facility] 06/24/2024 Panlobular emphysema (ICD-10 - J43.1) 07/07/2024 Panlobular emphysema (ICD-10 - J43.1) 07/07/2024 Chronic respiratory failure with hypoxia (ICD-10 - J96.11) 06/24/2024 Chronic respiratory failure with hypoxia (ICD-10 - J96.11) 04/07/2024 Dysuria (ICD-10 - R30.0) Dx added from [facility] 04/07/2024 Heart failure, unspecified (ICD-10 - I50.9) Dx added from [facility] 06/24/2024 Chronic kidney disease, stage 3b (ICD-10 - N18.32) 07/07/2024 Chronic kidney disease, stage 3b (ICD-10 - N18.32) 07/07/2024 Dementia, unspecified, without behavioral disturbance (ICD-10 - F03.90) Chronic/Stable - Mild memory issue - member is a/o during visit; patient and family deny confusion and wandering - member requires assistance, cueing for ADL's, 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's - f/u PCP prn 06/24/2024 Dementia, unspecified, without behavioral disturbance (ICD-10 - F03.90) Chronic/Stable - Mild memory issue - member is a/o during visit; patient and family deny confusion and wandering - member requires assistance, cueing for ADL's, 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's - f/u PCP prn 04/07/2024 Panlobular emphysema (ICD-10 - J43.1) Dx added from [facility] 04/07/2024 Respiratory failure, unspecified with hypoxia (ICD-10 - J96.91) Dx added from [facility] 06/24/2024 Unilateral primary osteoarthritis, left knee (ICD-10 - M17.12) 07/07/2024 Unilateral primary osteoarthritis, left knee (ICD-10 - M17.12) 07/07/2024 Displaced trimalleolar fracture of right lower leg, subsequent encounter for closed fracture with routine healing (ICD-10 - S82.851D) Subacute/Improving Appropriate healing per Ortho - continue up routinely Wearing a walking boot, ambulating with assistance and use of walker Avoid falls, report changes in pain or mobility Continue home PT - [facility] Continue tylenol as needed 06/24/2024 Displaced trimalleolar fracture of right lower leg, subsequent encounter for closed fracture with routine healing (ICD-10 - S82.851D) Subacute/Improving Appropriate healing per Ortho - continue up routinely Wearing a walking boot, ambulating with assistance and use of walker Avoid falls, report changes in pain or mobility Continue home PT - [facility] Continue tylenol as needed 04/07/2024 Chronic respiratory failure with hypoxia (ICD-10 - J96.11) Dx added from [facility] 04/07/2024 Chronic kidney disease, stage 3b (ICD-10 - N18.32) Dx added from [facility] 06/24/2024 Arthritis, low back (ICD-10 - M47.819) 07/07/2024 Arthritis, low back (ICD-10 - M47.819) 07/07/2024 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 left knee Chronic/Stable Pain is moderate and not worsening Continue medication compliance Educated to exercise regularly for short periods; physical therapy may be helpful, especially low-impact. Use assistive devices (cane, walker) to avoid falls d/t pain and stiffness. Avoid heavy lifting or overuse of joints. Use heat and/or cold to reduce pain/stiffness if helpful, for short periods only (<15 minutes) to avoid skin damage. F/u with PCP as scheduled Will continue to monitor 07/07/2024 Other chronic pain (ICD-10 - G89.29) M35.3 Polymyalgia rheumatica M47.819 Arthritis, low back M17.12 Unilateral primary OA. left knee Chronic/Stable Pain is moderate and not worsening Continue medication compliance Educated to exercise regularly for short periods; physical therapy may be helpful, especially low-impact. Use assistive devices (cane, walker) to avoid falls d/t pain and stiffness. Avoid heavy lifting or overuse of joints. Use heat and/or cold to reduce pain/stiffness if helpful, for short periods only (<15 minutes) to avoid skin damage. F/u with PCP as scheduled Will continue to monitor 04/07/2024 Unilateral primary osteoarthritis, left knee (ICD-10 - M17.12) Dx added from [facility] 04/07/2024 Polymyalgia rheumatica (ICD-10 - M35.3) Dx added from [facility] 12/16/2023 Other Member accepts offer of Chronic Care follow up going forward. She finds benefit from visits and connection to [facility]. She is agreeable to interval visits biweekly and then monthly. [facility] contact information provided. [facility] info provided. 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 Reminded to follow up with pcp and pulm and ortho as scheduled and to utilize [facility] for afterhours urgent needs. Reviewed when to seek ED evaluation in relation to chronic health conditions - including COPD and CHF zones. 07/15/2024 Other Provided contac t information for this APC, [facility] and [facility] member services. Patient reminded of COPD Zones and HF/HTN Zones and when to call PCP or this APC for urgent visit, or to seek [facility] or UC during the afterhours, and when to seek ED eval. Patient verbalizes understanding. 07/28/2024 Other Provided contact information for this APC, [facility], and [facility] customer service. Reviewed COPD Zones, HTN/HF Zones and when to seek urgent care versus ED evaluation. Patient verbalizes understanding. 08/08/2024 Other Reminded of contact info for this APC, [facility] and [facility] customer service and when to call. Reviewed COPD, CHF and HTN zones and advised of symptoms when to seek ED evaluation versus PCP/APC/UC care. Patient verbalized understanding. 08/16/2024 Other Reviewed contact information for this APC, [facility], and [facility] customer service. Educated on HTN/HF and COPD Zones and when to seek UC versus present to the ED. 09/15/2024 Other Provided contact info the this APC, the [facility] Member services/CRU line and [facility]. REviewed HF, COPD, DM zones and sick day plans. Reviewed when to call PCP/APC versus when to request UC [facility] versus when to seek ED evaluation. Patient verbalizes understanding. Plan Of Treatment Next Appt Details Provider Name:Rajwinder jenkins, 10/21/2024 10:00:00 AM, [address] [facility] [address], [place], [address], Insurance Providers Payer Name Payer Address Payer Phone Subscriber Number Group Number Insured Name Patient Relationship to Insured Coverage Start Date Coverage End Date [facility] SCO ([id number]) [address] [facility] [address] [place] [address] [id number] Ayush Mine Self - patient is the insured 3 9 Medical (General) History Medical History History ICD Code Chest pain (resolved 09/26/2023) Extrapyramidal disorder G25.9 Major depressive disorder, recurrent epi sode, moderate F33.1 Urinary incontinence, unspecified type R 32 Acute cystitis without hematuria N30.00 COPD exacerbation (resolved 07/14/2024) undefined COVID-19 virus infection (resolved 07/14) Surgical History Surgery Date(Month/Year) [facility] Right ankle ORIF 04/2024 Hospitalization History Reason Date(Month/Year) [facility] ED - COPD exac 06/26/2024 [facility] for STR following ankle fracture 05/2024-06/22/2024 [facility] Right bi-malleolar fracture 04/2024 [facility] for dysuria left AMA d/t long wait time 04/03/2024 [facility] ED bronchitis 02/13/24 [facility] ED chest and back pain (ACS ruled ou t) 12/04/23 [facility] ED chest and back pain (ACS ruled ou t) 12/02/23 [facility] - ? Sepsis (ruled out) 11/28- [facility]- COPD exac, UTI 11/17-04/05
--- OUTSIDE RECORDS SUMMARY | 2024-10-20 16:31 | XMS_ITS ---
Author Organization [facility] Address [address] [place] [address] Care Team Providers Care Aircraft Mechanic Armament Name Role Phone ChrisShelbi Primary Care Provider Unavailabl e Rajwinder Johns Unavailable [phone] REASON FOR VISIT Referral to Encounters Encounter Location Date Provider Diagnosis [facility] [address] [place] [address] 10/10/2024 Rajwinder Johns Plan Of Treatment Next Appt Details Provider Name:Rajwinder jenkins, 10/21/2024 10:00:00 AM, [address] [facility], [address], [address], Progress Notes * Mine PEACOCK RDOB:1950 (74 yo F)Acc No.[id number]:10/10/2024 Patient:?Mine PEACOCK :1950???Age:74 Y???Sex:Female Address:[address] [place] [address], [address], [place] [address] * true * Date:? Generated for Judah locke/Wendy/eTransmitting on:?10/20/2024 04:30 PM EDT
--- OUTSIDE RECORDS SUMMARY | 2024-10-20 16:31 | XMS_ITS | Patient Health Record ---
Author Organization [facility] Address [address] [facility], [place] [address] Care Team Providers Care Footwear Sales Coordinator Name Role Phone Chris BROWNE, [facility] Primary Care Provider Nik Horner Unavailable [phone] Allergies No Known Allergies Results Component Value Reference Range Notes HEMOGLOBIN A1C (GLYCOHEMOGLO BIN) Reviewed date:08/19/2024 08:18:40 AM Interpretation: Performing Lab: Notes/Report: HEMOGLOBIN A1C % (HH) 7.0 HEMOGLOBIN A1C (GLYCOHEMOGLO BIN) Reviewed date:03/01/2024 10:37:07 AM Interpretation: Performing Lab: Notes/Report: HEMOGLOBIN A1C (HH) 7.0 Reason For Referral No Information Medications Medication SIG (Take, Route, Frequency, Duration) Notes Start Date End Date Status rOPINIRole HCl 1 MG 2 tablet Oral Once a day Active Montelukast Sodium 10 MG Oral Once a day Active Myrbetriq 25 MG Oral for 30 Ac tive Lidocaine 5 % External for 30 Active Levemir FlexTouch 100 UNIT/ML Subcutaneous for 37 Active Gabapentin 300 MG Oral Once a day Active D3-1000 Active buPROPion HCl ER (XL) 150 MG 1 tablet in the morning Oral Active metFORMIN HCl 500 MG Oral Once a day Not-Taking Destin Aspirin 81 1 tablet Once a day Active Extra Depth Orthopedic Shoes (1 Pair) with Customized Heat Molded Multidensity Innersoles (3 Pair) as directed Dx: NIDDM/Polyneuropathy (E11.42), Hammertoe Foot Deformity (M20.41,M20.42), Preulcerative Skin Lesion(s) (L85.1 03/01/2024 Active Atorvastatin Calcium 80 MG Oral Once a day Active glipiZIDE ER 2.5 MG TAKE 1 TABLET BY MARLO TH EVERY DAY Oral for 30 Active traZODone HCl 100 MG Oral Once a day Active Immunizations Vaccine Route Administration Date Status Amarjit nts COVID-19 Pfizer BioNTech Vaccine Unknown 05/10/2021 Administered 1st 08/21/2020 2nd 09/11/2020 Influenza Unknown 03/13/2021 Administered Social History Tobacco Use: Social History Observation Description Date Details (start date - stop date) Never Smoker NA - NA Tobacco use other than smoking: Question Answer Notes Are you an other tobacco user? No Tobacco Control (Standard) Question Answer Notes Tobacco use: Nonsmoker Additional Findings: Tobacco non-user Current no nsmoker AUDIT-C (Standard) Question Answer Notes Did you have a drink containing alcohol in the p ast year? No Points 0 Interpretation Negative Problems Problem Type SNOMED Code ICD Code Onset Dates Problem Status W/U Status Risk Notes Problem Acquired hammer toe of right foot (9070633732739014 ) Other hammer toe(s) (acquired), right foot (M20.41) Active confirmed Response to treatment, Improvemen t Problem Acquired hammer toe of left foot (1677102433691360 ) Other hammer toe(s) (acquired), left foot (M20.42) Active confirmed Response to treatment, Improvemen t Problem Polyneuropathy due to type 2 diabetes mellitus (468449619) Type 2 diabetes mellitus with diabetic polyneuropathy (E11.42) Active confirmed Vital Signs Blood pressure diastolic 80 mm Hg 08/19/2024 Height 5 ft in 08/19/2024 Blood pressure systolic 121 mm Hg 08/19/2024 Weight 198 lbs 08/19/2024 BMI 38.67 kg/m2 08/19/2024 Procedures Procedure Date Ordered Date Performed Result Body Sit e 82177-GDNTKRF NAIL, 6 OR MORE 03/01/2024 N/A 05009-SBCI SKIN LESIONS, OVER 4 03/01/2024 N/A 26072-DYCMFQR NAIL, 6 OR MORE 08/19/2024 N/A 22481-RPEN SKIN LESIONS, OVER 4 08/19/2024 N/A Encounters Encounter Location Date Provider Diagnosis [facility] [employer] [address] [place] [address] 03/01/2024 Nik Hernandez Type 2 diabetes mellitus with diabetic polyneuropathy E11.42 ; Tinea unguium B35.1 ; Other hammer toe(s) (acquired), right foot M20.41 and Other hammer toe(s) (acquired), left foot M20.[address] [address] 08/19/2024 Nik Hernandez Type 2 diabetes mellitus with diabetic polyneuropathy E11.42 ; Tinea unguium B35.1 ; Other hammer toe(s) (acquired), right foot M20.41 and Other hammer toe(s) (acquired), left foot M20.[address] [address] 04/29/2024 Nik Austinier Assessments Encounter Date Diagnosis (ICD Code) Assessment Notes Treatment Notes Treatment Clinical Notes Section Notes 03/01/2024 Type 2 diabetes mellitus with diabetic polyneuropathy (ICD-10 - E11.42) 03/01/2024 Tinea unguium (ICD-10 - B35.1) 08/19/2024 Type 2 diabetes mellitus with diabetic polyneuropathy (ICD-10 - E11.42) 08/19/2024 Tinea unguium (ICD-10 - B35.1) 08/19/2024 Other hammer toe(s) (acquired), right foot (ICD-10 - M20.41) Response to treatment,Impro vement 03/01/2024 Other hammer toe(s) (acquired), right foot (ICD-10 - M20.41) Patient Educated with: DIABETIC FOOT CARE INSTRUCTIONS. pdf (DIABETIC FOOT CARE INSTRUCTIONS. pdf) 03/01/2024 Other hammer toe(s) (acquired), left foot (ICD-10 - M20.42) 08/19/2024 Other hammer toe(s) (acquired), left foot (ICD-10 - M20.42) Response to treatment,Impro vement Plan Of Treatment Pending Test Test Name Order Date 18369-[id number] NAIL, 6 OR MORE 05/11/2020 20774-WLCZZGB NAIL, 6 OR MORE 09/21/2020 39667-PFFHPAP NAIL, 6 OR MORE 12/21/2020 60575-KGSCKWX NAIL, 6 OR MORE 05/17/2021 12736-UEOKWRZ NAIL, 6 OR MORE 08/23/2021 10159-KYSKWXH NAIL, 6 OR MORE 01/28/2022 66987-JPXDHGF NAIL, 6 OR MORE 03/01/2024 72563-UVRSIRS NAIL, 6 OR MORE 08/19/2024 57785-XFQX SKIN LESIONS, OVER 4 08/19/19 90718-VREM SKIN LESIONS, OVER 4 03/01/20 Next Appt Details Provider Name:Nik Hernandez , 11/15/2024 03:30:00 PM, [address] [place], [address], Insurance Providers Payer Name Payer Address Payer Phone Subscriber Number Group Number Insured Name Patient Relationship to Insured Coverage Start Date Coverage End Date [facility] CCA SCO Claims [address] [place] [phone] [id number] Mine Peacock Self - patient is the insured Medical (General) History Medical History History ICD Code Lung disease COPD CAD Depression Restless Leg type II diabetes Surgical History Surgery Date(Month/Year) teeth extraction Surgery 2019 Left Knee Replacement Right ankle ORIF 2023 Hospitalization History Reason Date(Month/Year) [facility]- fell broke her Right ankle 03/2024 [facility] fell about a week 01/2022 [facility] - pneumonia/ high sugars 15 days 202 2
--- OUTSIDE RECORDS SUMMARY | 2024-10-20 16:31 | XMS_ITS | Clinical Summary ---
Author Organization [address] [facility] Address [address] [place] [address] Phone Care Team Providers Care Interior Decorator Painting Name Role Phone Delaney Sherman MD Primary Care Provider [phone] Social History Tobacco Use Types Packs/Day Years Used Date Smoking Tobacco: Never Assessed Comments Unknown Sex and Gender Information Value Date Recorded Sex Assigned at Not on file Legal Sex Female 7:51 AM EST Gender Identity Not on file Sexual Orientation Not on file Plan of Treatment Health Maintenance Due Date Last Done Comments Breast Cancer Screening 1950 Diabetes: Annual GFR (Glomerular Filtration Rate) 1950 Diabetes: Annual Foot Exam 01/11/1960 Diabetes: Annual Retina Eye Exam 01/11/1960 DTaP,Tdap,and Td Vaccines (2 - Td or Tdap) 07/13/2004 07/13/1994 RSV Immunization Adult Patients (1 - Risk 60-74 years 1-dose series) 2010 Zoster Vaccines (2 of 3) 03/16/2012 01/20/2012 Pneumococcal Vaccine: 50+ Years (2 of 2 - PPSV23) 10/07/2015 08/12/2015 COVID-19 Vaccine (2023-2 5 season) 2024 05/10/2021, 09/28/2020, 09/11/2020 Influenza Vaccine (#1) 2024 , 09/10/2017 Cholesterol Screening (Lipid Panel) 06/14/2024 Colorectal Cancer Screening: Colonoscopy 06/14/2024 Depression Screening 06/14/2024 Diabetes: Annual Urine Albumin-Creatinine Ratio (uACR) 06/14/2024 Falls Risk Assessment 06/14/2024 Hepatitis C Screening 06/14/2024 Hypertension/CHF/CAD Annual BMP Blood Test 06/14/2024 Medicare Annual Wellness Visit 06/14/2024 Osteoporosis Screening (Bone Density Screening) 06/14/2024 Social Influencers of Health Screening 06/14/2024 Diabetes: Blood Sugar Contro l Test (HGBA1C) 12/13/2024 06/14/2024 HIB Vaccines Aged Out No longer eligi ble based on patient's age to complete this topic HPV Vaccines Aged Out No longer eligi ble based on patient's age to complete this topic Hepatitis A Vaccines Aged Out No long er eligible based on patient's age to complete this topic Hepatitis B Vaccines Aged Out No long er eligible based on patient's age to complete this topic IPV Vaccines Aged Out No longer eligi ble based on patient's age to complete this topic MMR Vaccines Aged Out No longer eligi ble based on patient's age to complete this topic Meningococcal ACWY Vaccine Aged Out N o longer eligible based on patient's age to complete this topic Meningococcal B Vaccine Aged Out No l onger eligible based on patient's age to complete this topic RSV Immunization Patients Under 20 months Aged Out No longer eligible b ased on patient's age to complete this topic Varicella Vaccines Aged Out No longer eligible based on patient's age to complete this topic Procedures Procedure Name Priority Date/Time Associated Diagnosis Comments HEMOGLOBIN A1C Routine 06/14/2024 4:50 AM EST wood 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 140 mg/dL LAB CHEMISTRY METHOD 06/14/2024 12:36 PM EST [facility] Blood Venous blood specimen / Unknown Venipuncture / Unknown 06/14/2024 4:50 AM EST 06/14/2024 8:48 AM EST us Delaney Sherman MD LAB BLOOD ORDERABLES Final Resu lt [facility] [address] [place] [address], from Last 3 Months or Most Recently Relevant to Health Maintenance Insurance [employer] MEDICARE Member Subscriber Plan / Payer (Ef fective 2023-Present) Name:Mine Peacock Relation to Subscriber:Self Name:Mine Peacock Payer ID:[id number] Group ID:[id number] Type:Not on file Address: [facility] [address] [place] [id number] Care Teams Interior Decorator Painting Relationship Specialty Start Date End Date Delaney Sherman MD [address] [place] [id number] PCP - General Hospitalist Medicine 06/14/24
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
--- OUTSIDE RECORDS SUMMARY | 2024-10-20 16:31 | XMS_ITS ---
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 Primary Care Provider Nik Horner Unavailable [phone] Allergies No Known Allergies REASON FOR VISIT At Risk Footcare, Toe Irritation Medications Medication SIG (Take, Route, Frequency, Duration) Notes Start Date End Date Status Lidocaine 5 % External for 30 Active [...] TH EVERY DAY Oral for 30 Active rOPINIRole HCl 1 MG 2 tablet Oral Once a day Active Montelukast Sodium 10 MG Oral Once a day Active Myrbetriq 25 MG Oral for 30 Ac tive traZODone HCl 100 MG Oral Once a day Active Social History Tobacco Use: Social History Observation [...] ast year? No Points 0 Interpretation Negative Vital Signs Height 5 ft in 08/19/2024 Weight 198 lbs 08/19/2024 BMI 38.67 kg/m2 08/19/2024 Blood pressure systolic 121 mm Hg 08/19/19 25 Blood pressure diastolic 80 mm Hg 025 Procedures Procedure Date Ordered Date Performed Result Body Sit e 52940-FKKSLWM NAIL, 6 OR MORE 08/19/2024 N/A 32154-VTXH SKIN LESIONS, OVER 4 08/19/2024 N/A Encounters Encounter Location Date Provider Diagnosis [facility] [address] [address] 08/19/2024 Nik Hernandez Type 2 diabetes mellitus with diabetic polyneuropathy E11.42 ; Tinea unguium B35.1 ; Other hammer toe(s) (acquired), right foot M20.41 and Other hammer toe(s) (acquired), left foot M20.42 Assessments Encounter Date Diagnosis (ICD Code) Assessment Notes Treatment Notes Treatment Clinical Notes Section Notes 08/19/2024 Type 2 diabetes mellitus with diabetic polyneuropathy (ICD-10 - E11.42) 08/19/2024 Tinea unguium (ICD-10 - B35.1) 08/19/2024 Other hammer toe(s) (acquired), right foot (ICD-10 - M20.41) Response to treatment,Impro vement 08/19/2024 Other hammer toe(s) (acquired), left foot (ICD-10 - M20.42) Response to treatment,Impro vement Plan Of Treatment Pending Test Test Name Order Date 72079-BPYXQAX NAIL, 6 OR MORE 08/19/2024 86599-WISO SKIN LESIONS, OVER 4 08/19/19 25 Next Appt Details Follow Up: prn, Reason: Provider Name:Nik Hernandez , 11/15/2024 03:30:00 PM, [address] [place] [address], [id number], Procedure Notes * Category Sub-Category Detail Notes Debride Nail 6-10 Nail debridement Due to the cl inical pathology outlined in the exam findings, performance of this nail treatment is medically necessary as its management by an unskilled/untrained nonprofessional would put this patients foot and overall health at risk. Therefore, debridement to affected nail(s), as described in exam ( TA, T1, T3, T4, T5, T7, T9), was performed exclusively by the physician of record to reduce/remove overall nail length, girth, thickness, subungual debris, and necrotic tissue, by manual and/or electrical means through the use of a nail nipper and/or dremel-type rubber grinder, to a more viable healthy nail plate or bed tissue 6-10 nails in total. Silver nitrate was used for any petechial bleeding as necessary. Definitive antifungal treatment options, both pharmaceutical and surgical, have been reviewed and discussed with the patient. The patient solely prefers the use of intermittent/as needed professional debridement services for their nail condition and understands the need for additional periodic treatments to maintain effectiveness in symptomatic relief - 85555 Keratoma Treatment Parring or Cutting o f Benign Hyperkeratotic Lesion(s) (-57) More than 4 Lesions - Due to the at risk nature of the patients medical condition as documented in the exam findings, performance of this keratoderma treatment is medically necessary as its management by an unskilled/untrained nonprofessional would put this patients foot and overall health at risk. Therefore, the benign hyperkeratotic lesions, ( 6) in total, locations as stated and described in the exam ( Medial , IPJ , TA , Medial , IPJ , T5 , SUB MTH (s) , 5 , B/L , Plantar, Heel(s) , B/L), were pared, and/or cut utilizing a sterile 15 blade, tissue nippers, and/or power dremel instrumentation by the physician of record - 43080 Progress Notes * Shahbaz PEACOCKOB:1950 ( 74 yo F)Acc No.[id number]:08/19/2024 Progress Note Patient:?Mine PEACOCK Provider:?Nik Hernandez DPM :1950???Age:74 Y???Sex:Female D ate:08/19/2024 Address:[address] [place] [address], [place] [address], [id number] Pcp:Shelbi Perez MD Subjective: * Chief Complaints: * ???At Risk FootcareToe Irrit ation * HPI: ???At Risk footcare:?Pt States Last PCP Visit:?Date?07/21/2024 ?Misc?Patient accompanied by, Son, CRISTINA, who is physically present in exam room at time of visit.?Toe pain:?Treatments:?Rx shoes .? * ROS:?General/Constitutional:?Nausea?denies.?Vomiting?denies.?Hunger Thirst?denies.?Loss appetite?denies.?Chills?denies.?Fatigue?denies.?Fever?denies.?Night Sweats?denies.?Unexplained weight loss?denies.?Unexplained weight gain?denies.?HEENTM:?Dentures?denies.?Dizziness?denies.?Glasses/contacts?denies.?Retinopathy?den ies.?Blurred/double vision?denies.?TMJ?denies.?Discharge/drainage?denies.?Implants?denies.?Sore throat?denies.?Dental implants?denies.?Hard of hearing ?denies.?Difficulty chewing/swallowing/speaking?denies.?Nose bleeds?denies.?Sore mouth?denies.?Respiratory:?On O xygen?denies.?Pneumonia/pleurisy?denies.?Bronchitis?denies.?Emphysema?denies.?Co ughing?denies.?Cough blood?denies.?Shortness of breath?denies.?Wheezing?denies.?Cardiovascular:?Pacemaker?denies.?MVP?denies.?WPW?denies.?CHF?denies.?Heart attack?denies.?Septal defect?denies.?Rapid beat?denies.?Chest pain ?denies.?Atrial Fib.?denies.?Murmur/Palpitations?denies.?Gastrointestinal:?Hemorrhoids?denies.?Stomach/Abdominal pain?denies.?Dark blood stool?denies.?Irritable bowel ?denies.?Constipation?denies.?Diarrhea?denies.?Hematology:?Swelling?admits.?Clots?denies.?Varicose Veins?denies.?Bruising?admits, on aspirin.?Bleeding problem?admits, on anticoagulants.?Genitourinary:?Blood urine?denies.?Frequent/Painfu/urination/bladder control?denies.?Kidney stones?denies.?Infection (UTI)?denies.?Nephropathy?denies.?sex trans dis (STD)?denies.?Prostate?denies.?Musculoskeletal:?Hammertoes?admits.?Bunions?admits.?Back Pain?denies.?Muscle Cramps/ Resting?denies.?Restless Leg Syndrome?admits.?Muscle cramps / walking?denies.?Generalized aches and pains?denies.?Weakness?denies.?Integ.:?Pepper?denies.?Scars?denies.?Corns/calluses?admits.?Ingrown nails?admits.?Painful nails?denies.?Open Sores?denies.?Rashes?denies.?Neurologic:?Difficulty sleeping?denies.?Brain disorder?denies.?Numbness?admits.?Balance trouble?denies.?Confusion?denies.?Fainting/blackouts?denies.?Tingling?admits, bilateral lower extremities.?Tremors?denies.? * Medical History:? * Surgical History:?teeth extr action Surgery 2019Left Knee Replacement Right ankle ORIF 2023 * Hospitalization/Major Diagno stic Procedure:?[facility] - pneumonia/ high sugars 15 days 2021C fell about a week - fell broke her Right ankle 03/2024 * Family History:?Mother: dece ased, cancer, heart attack, diagnosed with Diabetic - NIDDM.?Father: .? * Social History:?Tobacco Use:?Tobacco use other than smoking?Are you an other tobacco user??No ?Tobacco Control (Standard)?Tobacco use:?Nonsmoker ?Additional Findings: Tobacco non-user?Current nonsmoker ???Drugs/Alcohol:?Drugs?Have you used drugs other than those for medical reasons in the past 12 months??No ???Miscellaneous:?Caffeine: yes, frequency:, 2-3 cups per day. ?Children: yes. ?Exercise: yes, walking [place]. ?Marital status: . 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 ???Drug/Alcohol:?AUDIT-C (Standard)?Did you have a drink containing alcohol in the past year??No ?Points?0 ?Interpretation?Negative * Medications:?TakingAtorvasta tin Calcium 80 MG Tablet Oral Once a day [place] Aspirin 81 1 tablet Once a day buPROPion HCl ER (XL) 150 MG Tablet Extended Release 24 Hour 1 tablet in the morning Oral D3-1000 Gabapentin 300 MG Capsule Oral Once a day Levemir FlexTouch 100 UNIT/ML Solution Pen-injector Subcutaneous Lidocaine 5 % Patch External Myrbetriq 25 MG Tablet Extended Release 24 Hour Oral Montelukast Sodium 10 MG Tablet Oral Once a day rOPINIRole HCl 1 MG Tablet 2 tablet Oral Once a day traZODone HCl 100 MG Tablet Oral Once a day glipiZIDE ER 2.5 MG Tablet Extended Release 24 Hour TAKE 1 TABLET BY MOUTH EVERY DAY Oral Extra Depth Orthopedic Shoes (1 Pair) with Customized Heat Molded Multidensity Innersoles (3 Pair) as directed Dx: NIDDM/Polyneuropathy (E11.42), Hammertoe Foot Deformity (M20.41,M20.42), Preulcerative Skin Lesion(s) (L85.1 Taking Atorvastatin Calcium 80 MG Tablet Oral Once a day Taking [place] Aspirin 81 1 tablet Once a day Taking buPROPion HCl ER (XL) 150 MG Tablet Extended Release 24 Hour 1 tablet in the morning Oral Taking D3-1000 Taking Gabapentin 300 MG Capsule Oral Once a day Taking Levemir FlexTouch 100 UNIT/ML Solution Pen-injector Subcutaneous Taking Lidocaine 5 % Patch External Taking Myrbetriq 25 MG Tablet Extended Release 24 Hour Oral Taking Montelukast Sodium 10 MG Tablet Oral Once a day Taking rOPINIRole HCl 1 MG Tablet 2 tablet Oral Once a day Taking traZODone HCl 100 MG Tablet Oral Once a day Taking glipiZIDE ER 2.5 MG Tablet Extended Release 24 Hour TAKE 1 TABLET BY MOUTH EVERY DAY Oral Taking Extra Depth Orthopedic Shoes (1 Pair) with Customized Heat Molded Multidensity Innersoles (3 Pair) as directed Dx: NIDDM/Polyneuropathy (E11.42), Hammertoe Foot Deformity (M20.41,M20.42), Preulcerative Skin Lesion(s) (L85.1 Not-Taking/PRNmetFORMIN HCl 500 MG Tablet Oral Once a day Medication List reviewed and reconciled with the patientNot- Taking/PRN metFORMIN HCl 500 MG Tablet Oral Once a day Medication List reviewed and reconciled with the patient * Allergies:?N.K.D.A.yes[Aller gies Verified] Objective: * Vitals:?Ht:5 ft, Wt:198, BMI :38.67, Shoe size:7, BP:121/80mm Hg, BS:174, Ht-cm: 152.4 cm, Wt-k.81 kg. * ???Past Orders: ???Lab:HEMOGLOBIN A1C (GLYCO HEMOGLOBIN) (Order Date - 04/12/2024) (Collection Date & Time - 05/13/2024 08:17 AM) ? Value Reference Range ?HEMOGLOBIN A1C % (HH) 7.0 * Examination: ???Ophthalmology Referral: ?DIABETES EYE EXAM?Procedure Performed:?Yes ?Date of Exam Performed?01/25/2024 ?Diabetic Retinopathy Screening:?Yes ?Retinal Screening Performed:?Yes ?Findings of Diabetic Eye Exam:?no retinopathy?Neurological: ?SENSORY:? Neurological exam demonstrates, reduced light touch sensation, reduced sharp/dull pin prick discrimination , B/L, 5.07 monofilament test performed at plantar aspects of 5 varied sites per foot shows sensation, reduced , B/L.?Nails: ?NAILS are:?Elongated, overgrown, dystrophic, lytic, greater than 3mm thick, discolored and friable with crumbly malodorous subungual debris, with pain on palpation, TA, T1, T3, T4, T5, T7, T9, all other nails not described with characteristics as possessing mycosis are elongated, overgrown, and dystrophic.?Dermatologic: ?SKIN FINDINGS:?Skin exam reveals Keratotic lesion(s) located at , Medial , IPJ , TA , Medial , IPJ , T5 , SUB MTH (s) , 5 , B/L , Plantar, Heel(s) , B/L.?Orthopedic: ?DIGITAL DEFORMITIES:?Digital contracture, PIPJ, 2-5 B/L, incompl-reducible to push-up test, no over, nor underlapping, there is no longer, evidence of shoe producing skin irritation.?FOOTWEAR:?good condition, exhibit proper fit and accommodation for pedal deformities. OT were inspected and noted to be worn, but in good condition giving proper support at the present time.?General Examination: ?GENERAL APPEARANCE:?Reveals a pleasant, alert, well nourished, well- developed, well hydrated individual, who demonstrates proper attention to hygiene/body habitus, and is in no acute distress, Pt serves as own historian for office visit today.?ORIENTED:?person, place, and time.?FOOT EXAM:?Lower Extremity Neurological Exam performed:?Yes ?Visual exam of foot performed:?Yes ?Date?08/19/2024 ?Footwear Evaluation?Footwear Evaluation performed:?Yes??? Assessment: * Assessment: 1.?Type 2 diabetes mellitus with diabetic polyneuropathy - E11.42 (Primary)???2.?Tinea unguium - B35.1???3.?Other hammer toe(s) (acquired), right foot - M20.41???Specify :Chronic problem, Stable (1=3,2=4)???Notes :Response to treatment,Improvement???4.?Other hammer toe(s) (acquired), left foot - M20.42???Specify :Chronic problem, Stable (1=3,2=4)???Notes :Response to treatment,Improvement??? Plan: * Treatment: * Procedures:?Debride Nail 6-10:?Nail debridement?Due to the clinical pathology outlined in the exam findings, performance of this nail treatment is medically necessary as its management by an unskilled/untrained nonprofessional would put this patients foot and overall health at risk. Therefore, debridement to affected nail(s), as described in exam (?TA,?T1,?T3,?T4,?T5,?T7,?T9), was performed exclusively by the physician of record to reduce/remove overall nail length, girth, thickness, subungual debris, and necrotic tissue, by manual and/or electrical means through the use of a nail nipper and/or dremel-type rubber grinder, to a more viable healthy nail plate or bed tissue 6- 10 nails in total. Silver nitrate was used for any petechial bleeding as necessary. Definitive antifungal treatment options, both pharmaceutical and surgical, have been reviewed and discussed with the patient. The patient solely prefers the use of intermittent/as needed professional debridement services for their nail condition and understands the need for additional periodic treatments to maintain effectiveness in symptomatic relief - 92432.?Keratoma Treatment:?Parring or Cutting of Benign Hyperkeratotic Lesion(s)?(-57) More than 4 Lesions - Due to the at risk nature of the patients medical condition as documented in the exam findings, performance of this keratoderma treatment is medically necessary as its management by an unskilled/untrained nonprofessional would put this patients foot and overall health at risk. Therefore, the benign hyperkeratotic lesions, ( 6) in total, locations as stated and described in the exam (?Medial?,?IPJ?,?TA?,?Medial?,?IPJ?,?T5?,?SUB MTH (s)?,?5?,?B/L?,?Plantar,?Heel(s)?,?B/L), were pared, and/or cut utilizing a sterile 15 blade, tissue nippers, and/or power dremel instrumentation by the physician of record - 45097.? * Procedure Codes:?27352 DEBRI DE NAIL, 6 OR MORE, Modifiers: XS 28869 TRIM SKIN LESIONS, OVER 4, Modifiers: XS * Preventive Medicine:? ??Counseling:?Discussion:?-13: Office or other outpatient visit for the evaluation and management of an established patient, which required a medically appropriate history and/or examination and LOW level of DECISION MAKING for: 1 STABLE ACUTE UNCOMPLICATED PROBLEM, 2 OR MORE MINOR PROBLEMS, OR 1 STABLE CHRONIC PROBLEM, THAT POSE(S) A LOW RISK FOR MORBIDITY/MORTALITY. The visit on the day of the encounter encompassed interpreting the data and educating the patient as to the nature of their condition, treatment options available according to their individual PMH, meds, allergies, and overall health/living conditions, as well as any potential risks or complications that may occur from a failure to adhere to, and participate in, the recommended course of therapy. The discussion included a complete verbal, and/or written explanation of the examination results, any x-rays taken, the proposed diagnosis, and outline of the treatment plan. A schedule for future care needs was also explained. The patient verbalized an understanding of the instructions at this time and agreed to be an active participant in their treatment. If the patient should think of any questions or concerns after the visit, I have encouraged the patient to call the office.?Shoe Gear Counseling:?A thorough inspection of the patients Rxed shoegear and inserts was performed and findings communicated. We reviewed the many important medical advantages for adhering to regularly wearing these shoe and insert accomidative devices daily as well as reviewed the fact that a failure in accepting these recommedations may be deleterious, unable to prevent, and disadvantagely result in, many pedal complications such as skin irritation, skin ulceration, infection, and even loss of toe/foot/leg/or even their life. Time was also spent reviewing the proper footcare techniques including daily skin moisturization, daily foot inspection for any interruption in skin integrity, open lesions, or sign of infection such as redness/malodor/drainage/swelling as well as daily shoe inspection for the presence of internal foreign bodies and shoe as well as insert wear. Patient questions re: shoes, inserts, and self foot inspections were answered to their satisfaction as the patient verbally confirmed a full understanding of the above information.? ??Screening/Special Tests:?Fall Risk?Assessment:?Performed ?Plan of Care:?Documented ?Type of fall plan of care:?Balance, strength and gait training or instruction provided ?Screening:?One fall with injury in the past year ?FALLS: Screening for Future Fall Risk?Have you had two or more falls in the past year??No ?Have you had any falls with injury in the past year??Yes * Follow Up:?prn * Images: * Sign off status: Completed true * Provider:?Nik Hernandez DPM Date:?2024 Generated for Judah locke/Wendy/Kyle on:?10/20/2024 04:31 PM EDT History and Physical Notes * HPI (History of Present Illness) Category Sub-Category Detail Notes Category Not es Toe pain Treatments: Rx shoes At Risk footcare Pt States Last PCP Visit: Date: [facility] – [place], [place] Patient accompanied by, Son, CRISTINA, who is physically present in exam room at time of visit Examination Category Sub-Category Detail Notes Category Not es Neurological SENSORY: Neurological exa m demonstrates, reduced light touch sensation, reduced sharp/dull pin prick discrimination , B/L, 5.07 monofilament test performed at plantar aspects of 5 varied sites per foot shows sensation, reduced , B/L Dermatologic SKIN FINDINGS: Skin exam reveal s Keratotic lesion(s) located at , Medial , IPJ , TA , Medial , IPJ , T5 , SUB MTH (s) , 5 , B/L , Plantar, Heel(s) , B/L Orthopedic FOOTWEAR EVALUATION: good condit ion, exhibit proper fit and accommodation for pedal deformities. OT were inspected and noted to be worn, but in good condition giving proper support at the present time DIGITAL DEFORMITIES: Digital contracture , PIPJ, 2-5 B/L, incompl-reducible to push-up test, no over, nor underlapping, there is no longer, evidence of shoe producing skin irritation General Examination GENERAL APPEARANCE: Reveals a pleasant, alert, well nourished, well-developed, well hydrated individual, who demonstrates proper attention to hygiene/body habitus, and is in no acute distress, Pt serves as own historian for office visit today FOOT EXAM: Lower Extremity Neurological Exa m performed:: Yes Visual exam of foot performed:: Yes Date: 08/19/2024 ORIENTED: person, place, and t sonido Footwear Evaluation Footwear Evaluation performe d:: Yes Ophthalmology Referral DIABETES EYE EXAM Procedure Perform ed:: Yes ?Date of Exam Performed: 01/25/2024 Diabetic Retinopathy Screening:: Yes Retinal Screening Performed:: Yes Findings of Diabetic Eye Exam:: no retin opathy Nails NAILS are: Elongated, overg rown, dystrophic, lytic, greater than 3mm thick, discolored and friable with crumbly malodorous subungual debris, with pain on palpation, TA, T1, T3, T4, T5, T7, T9, all other nails not described with characteristics as possessing mycosis are elongated, overgrown, and dystrophic
--- OUTSIDE RECORDS SUMMARY | 2024-10-20 16:31 | XMS_ITS ---
Author Name Vicente Zhao Address [address] [place] [address] Phone [phone] Organization [facility] Care Team Providers Care Logistics Technician Name Role Phone Cristin Ogden Unavailable [phone] Reason for Referral Not Available Allergies, adverse reactions, alerts Allergen Type Reaction Severity Status Onset Date Adhesive Tape Allergy to substance (disorder) Unknown Active N/A Trimethobenzamide Allergy to substance (disorder) Unknown Active N/A Fluticasone-Sodium Chloride Allergy to s ubstance (disorder) Unknown Active N/A History of medication use Medication Class Instructions Start Date End Date Gabapentin 300 mg Cap TAKE 1 CAPSULE BY MOUTH IN THE MORNING AND 3 CAPSULES BY MOUTH AT BEDTIME DIRECTED 2022-08-29 No Data Available hydrOXYzine Pamoate 25 mg Cap TAKE 1 CAP REILLY BY MOUTH EVERY DAY AT BEDTIME NEEDED 2022-02-17 No Data Available Tolterodine Tartrate ER 2 mg Cap ER 24hr TAKE 1 CAPSULE BY MOUTH DAILY FOR 30 DAYS 2022-08-28 No Data Available Sulfamethoxazole-Trimethopri m 800/160 mg Tab TAKE 1 TABLET BY MOUTH TWICE A DAY FOR 7 DAYS 2022-10-06 No Data Available BD UF MINI PEN NEEDLE [id number] USE TO ADM INISTER INSULIN TWICE DAILY 2022-10-08 No Data Available amLODIPine Besylate 5 mg Tab TAKE 1 TABL ET BY MOUTH EVERY DAY 2022-08-21 No Data Available OneTouch Ultra Strip USE TO CHECK BLOOD SUGAR TWICE DAILY AND WHEN HAVING SYMPTOMS OF HYPO/HYPERGLYCEMIA 2022-09-16 No Data Available Lisinopril 5 mg Tab TAKE 1 TABLET BY MARLO TH EVERY DAY 2022-10-06 No Data Available Levemir FlexPen 100 UNIT/ML Solution Pen-injector INJECT 20 UNITS SUBCUTANEOUSLY ONCE DAILY 2022-10-29 No Data Available Breo Ellipta 200-25 MCG/ACT Aerosol Powder Breath Activated TAKE 1 INHALATION ONCE DAILY FOR COPD FOR 30 DAYS 2022-11-14 No Data Available Montelukast Sodium 10 mg Tab TAKE 1 TABL ET BY MOUTH EVERY DAY 2022-10-03 No Data Available buPROPion ER (XL) 150 mg Tab ER 24hr TAKE 1 TABLET BY MOUTH EVERY DAY IN THE MORNING 2022-11-03 No Data Available traZODone 100 mg Tab TAKE 2 TABLETS BY M OUTH AT BEDTIME NEEDED FOR INSOMNIA 2022-11-03 No Data Available Nitrofurantoin Monohyd Macro 100 mg Cap TAKE 1 CAPSULE BY MOUTH TWICE A DAY FOR 7 DAYS (MUST TAKE WITH MEAL/FOOD) 2022-11-19 No Data Available Atorvastatin Calcium 80 mg Tab TAKE 1 TABLET BY MOUTH EVERY DAY 2022-11-21 No Data Available Estradiol 0.1 mg/GM Crm USE A PEA SIZED AMOUNT VAGINALLY ON URETHRA 3 TIMES A WEEK 2022-08-21 No Data Available Insulin Lispro (1 Unit Dial) 100 UNIT/ML Solution Pen-injector INJECT 10 UNITS (0.1 ML) SUBCUTANEOUSLY 3 TIMES A DAY FOR 90 DAYS. USE INSULIN SLIDING SCALE 2022-11-24 No Data Available Pramipexole Dihydrochloride 0.5 mg Tab TAKE 1 TABLET BY MOUTH TWICE A DAY IN THE EVENING AND BEDTIME FOR 30 DAYS 2022-12-15 No Data Available rOPINIRole 2 mg Tab TAKE 1 TABLET BY MARLO TWICE A DAY FOR 90 DAYS 2023-01-01 No Data Available ProAir RespiClick 108 (90 Base) MCG/ACT Aerosol Powder Breath Activated 1 PUFF INHALED BY MOUTH EVERY 4 TO 6 HOURS NEEDED FOR SHORTNESS OF BREATH OR WHEEZING 2023-01-24 No Data Available Doxycycline Hyclate 100 mg Tab TAKE 1 TABLET BY MOUTH TWICE A DAY 2023-01-24 No Data Available predniSONE 20 mg Tab TAKE 1 TABLET BY MO UT TWICE A DAY 2023-01-24 No Data Available Cefdinir 300 mg Cap TAKE 1 CAPSULE BY MO UT 2 TIMES A DAY FOR 7 DAYS 2023-01-28 No Data Available BD UF MINI PEN NEEDLE [id number] USE TO ADM INISTER INSULIN TWICE DAILY 2022-10-14 No Data Available rOPINIRole 2 mg Tab No Data Available 2023-03-30 No Data Available Problem List Problem Status Onset Date Resolved Date Morbid obesity due to excess calories Active 09-18-17 N/A Major depressive disorder, recurrent, mild Active 2023-03-30 N/A H/O respiratory failure; Chr onic obstructive pulmonary disease, unspecified Active 2023-03-30 N/A Type 2 diabetes mellitus wit h complications: HLD, diabetic neuropathy, CKD stage 4 Active 2023-03-30 N/A Inflammatory bowel disease Active 2023-03-30 N /A History of diverticulitis Active 2023-03-30 N/ A Polymyalgia rheumatica Active 2023-03-30 N/A Restless legs syndrome Active 2023-03-30 N/A Social History Sex Female Functional Status Functional Category Effective Dates 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 Pt reports using assistive device of: 2023-03-30 Mental Status Status Date AOx 2023-03-30 Assessments Not Available Plan of Care Not Available
--- OUTSIDE RECORDS SUMMARY | 2024-10-20 16:31 | XMS_ITS ---
Author Organization [facility] Address [address] [place] [id number] Care Team Providers Care Welt Pocket Machine Operator Name Role Phone Chris BROWNE, Shelbi Primary Care Provider Nik Horner Unavailable [phone] Encounters Encounter Location Date Provider Diagnosis [address] [id number] 05/06/2024 Nik Hernandez Plan Of Treatment Next Appt Details Provider Name:Nik Hernandez , 11/15/2024 03:30:00 PM, [address] [place] [address], [phone], Progress Notes * Mary PEACOCKeDOB:1950 ( 74 yo F)Acc No.[id number]:05/06/2024 Progress Note Patient:?MENDY Mine Provider:?Nik Hernandez DPM :1950???Age:74 Y???Sex:Female D ate:05/06/2024 Address:[address] [place] [address], [place], [place] Pcp:Shelbi Perez MD Subjective: * Chief Complaints: * ??? * Medical History:? Objective: * Vitals:? Assessment: Plan: * Treatment: * Images: * The named appointment provid er may or may not be the originator of this progress note, and it is not deemed complete until electronically signed by the appointment provider. Sign off status: Pending * Provider:?Nik Hernandez DPM Date:?2023 Generated for Judah locke/Wendy/Kyle on:?10/20/2024 04:30 PM EDT
--- OUTSIDE RECORDS SUMMARY | 2024-10-20 16:31 | XMS_ITS | Clinical Summary ---
Author Organization [facility] Address [address] [place] [address] Phone Care Team Providers Care Heel Builder Name Role Phone Shelbi Perez MD Primary Care Provider [phone] Allergies Active Allergy Reactions Criticality Noted Date Comments Adhesive Tape 08/12/2021 Other reaction(s): skin irritation Fluticasone-Sodium Chloride Other (see comments) 08/12/2021 Trimethobenzamide 07/09/2021 Other reaction(s): GI s/s Medications acetaminophen (TYLENOL) 500 MG tablet Active Albuterol Sulfate 108 (90 Base) MCG/ACT aerosol powder 1 puff by Other route Active Aclidinium [place] (TUDORZA PRESSAIR IN) Inhale 4 Active insulin glargine (Lantus) 100 UNIT/ML injection Inject under the skin 4 Active gabapentin (NEURONTIN) 300 MG capsule Take 1 capsule by mouth in the morning and 1 capsule in the evening. 2 Active montelukast (SINGULAIR) 10 MG tablet Take 1 tablet by mouth 1 (one) time each day 2 Active traZODone (DESYREL) 50 MG tablet Take 2 tablets by mouth at bed time 2 Active amLODIPine (NORVASC) 5 MG tablet Take 5 mg by mouth 1 (one) time each day 2 Active atorvastatin (LIPITOR) 80 MG tablet Take 80 mg by mouth 1 (one) time each day 1 Active buPROPion XL (WELLBUTRIN XL) 150 MG 24 hr tablet Take 150 mg by mouth 1 (one) time each day in the morning 2 Active fluticasone (FLONASE) 50 MCG/ACT nasal spray INSTILL 1 SPRAY NASALLY DAILY 1 Active hydrOXYzine (VISTARIL) 25 MG capsule TAKE 1 CAPSULE BY MOUTH TWICE A DAY NEEDED FOR ANXIETY/SLEEP 2 Active Levemir FlexTouch 100 UNIT/ML injection INJECT 20 UNITS SUBCUTANOUSLY EVERY MORNING 2 Active B-D UF III MINI PEN NEEDLES 31G X 5 MM [facility] USE TO ADMINISTER INSULIN TWICE DAILY 2 Active lisinopril 5 MG tablet 2 Active rOPINIRole (REQUIP) 1 MG tablet Take 1 mg by mouth 1 Active aspirin (ST TINY) 81 MG EC tablet Take 1 tablet by mouth Active cholecalcifero l (VITAMIN D-3) 25 MCG (1000 UT) capsule Active traZODone (DESYREL) 100 MG tablet 200 mg 1 (one) time each day Active [facility] Gentle Laxative 5 MG EC tablet TAKE 2 TABLETS BY MOUTH ONCE FOR 1 DAY DIRECTED PRIOR TO COLONOSCOPY 2 Active Active Problems Problem Noted Date Diagnosed Date Acquired hammer toe of right foot 05/14/2022 Acute nontraumatic kidney injury 08/12/2021 Anxiety 08/12/2021 Chronic kidney disease stage 2 08/12/2021 Chronic depression 08/12/2021 Diabetes mellitus without me ntion of complication, type II or unspecified type, not stated as uncontrolled 08/12/2021 History of diverticulitis 08/12/2021 Morbid obesity 08/12/2021 Obstructive sleep apnea syndrome 08/12/2021 Polymyalgia rheumatica 08/12/2021 Restless legs 08/12/2021 Chronic obstructive pulmonar y disease with acute exacerbation 07/09/2021 Chronic respiratory failure with hypoxia 021 Dependence on supplemental oxygen 07/09/2021 Difficulty in walking 07/09/2021 Major depressive disorder with single episode Hyperlipidemia 07/09/2021 Low back pain 07/09/2021 Gastro-esophageal reflux disease without esophag itis 07/09/2021 Essential (primary) hypertension 07/09/2021 Unilateral primary osteoarthritis of left knee 1 09/09/2020 Immunizations Immunization Administration Dates Next Due Influenza (IM) Preservative Free 03/13/2021 Influenza, Unspecified 09/10/2017 Pfizer SARS-COV-2 05/10/2021 Pneumococcal Conjugate 02/10/2018,06/10/2015,07/2006 Pneumococcal Conjugate 13-Valent 08/12/2015 SARS-CoV-2, Unspecified 09/28/2020,09/11/2020 Td, Unspecified 07/13/1994 Zoster 01/20/2012 Family History Medical History Relation Comments Kidney disease Child 1 son has stones Hypertension Child 2 son Diabetes Father Kidney disease Father Cancer Mother liver cancer Diabetes Mother Hypertension Mother Kidney disease Mother congenital atrop hic kidney - eventual esrd Relation Status Comments Child 1 Child 2 Father Mother Social History Tobacco Use Types Packs/Day Years Used Date Smoking Tobacco: Never Alcohol Use Standard Drinks/Week Comments Yes 0 (1 standard drink = 0.6 oz pure alcohol) Alcoholic Drinks/day: Occasional social drink Comments Unknown Sex and Gender Information Value Date Recorded Sex Assigned at Not on file Legal Sex Female 5:02 PM EST Gender Identity Not on file Sexual Orientation Not on file Last Filed Vital Signs Vital Sign Reading Time Taken Comments Blood Pressure 130/80 10/08/2022 3:59 PM EDT Pulse 108 10/08/2022 3:59 PM EDT Temperature - - Respiratory Rate - - Oxygen Saturation 95% 10/08/2022 3:59 PM EDT Inhaled Oxygen Concentration - - Weight 98.7 kg (217 lb 9.6 oz) 10/08/2022 3:59 P M EDT Height - - Body Mass Index - - Plan of Treatment Health Maintenance Due Date Last Done Comments Breast Cancer Screening 1950 Colorectal Cancer Screening: Annual FOBT 1999 Colorectal Cancer Screening: Colonoscopy 1999 Colorectal Cancer Screening: Sigmoidoscopy 1999 Pneumococcal Vaccine: 50+ Years (2 of 2 - PPSV23 or PCV20) 04/07/2018 02/10/2018, 08/12/2015, 06/10/2015, Additional history exists Diabetes: Hemoglobin A1C 08/13/2020 Diabetes: Ophthalmology Exam 08/13/2020 Diabetes: Pedal Pulse Checked 08/13/2020 Diabetes: Sensory Foot Exam 08/13/2020 Diabetes: Visual Foot Exam 08/13/2020 Influenza Vaccine (Season Ended) 2025 03/13/2021, 09/10/2017 Hepatitis B Vaccine Aged Out No longe r eligible based on patient's age to complete this topic Insurance Medicaid [place] [facility] ([id number]) [place] [facility] ([id number]) [place] [address] Care Teams Heel Builder Relationship Specialty Start Date End Date Shelbi Perez MD [facility] [place] [address] PCP - General Internal Medicine 09/18/21
== END 2024-10-20 14:03 | disposition home or self-care (01) ==
LOC: HO.HPS 13:39
PROVIDERS: PCP Internal Medicine; Visit Provider Internal Medicine
DX: J98.4 Other disorders of lung (principal); J43.1 Panlobular emphysema; J96.91 Respiratory failure, unspecified with hypoxia
CPT/HCPCS: 99213

== ENCOUNTER → 2024-10-20 13:38 | Outpatient (BNVA) | payer OTHER, SELFPAY | PROVIDERS: PCP Internal Medicine; Visit Provider Internal Medicine | DX: J43.1 Panlobular emphysema (principal); J98.4 Other disorders of lung; J96.91 Respiratory failure, unspecified with hypoxia; F17.200 Nicotine dependence, unspecified, uncomplicated; Z99.81 Dependence on supplemental oxygen | CPT/HCPCS: 99212 ==

== ENCOUNTER → 2024-11-29 08:28 | Outpatient (RCR) | payer MEDICARE, MEDICAID, SELFPAY ==
--- NOTE | 2020-05-23 14:27 | MHC.PT.EP ---
[facility] [place] Office [place] Office [place] Office [address] [phone] F: [phone] F: [phone] F: [phone] F: [phone] Physical Therapy Plan of Care Date of Evaluation: 05/23/20 Date of Surgery: Scheduled 05/28/20 Diagnosis: Pre-hab for TKA of R knee Assessment: Patient is a 70 year old R handed female who presents with s/s consistent with pre-hab for TKA. She is fairly debilitated at this time from pain and co-morbidities although she has lost weight and is no longer using oxygen. Patient past medical history includes obesity, supplemental oxygen use, DM. Current impairments include pain, ROM, strength, safety, independence, activity tolerance and functional mobility. Functional limitations include decreased ability to walk, stand, transfer, negotiate stairs, and perform weight bearing activities.. Patient is motivated with good rehab potential. Skilled PT will address impairments and functional limitations in order to achieve goals. Frequency and Duration: The patient will be seen 1x Short Term Goals: HEP. Intermediate Goals: Treatment Plan: Modalities to reduce pain, spasms and effusion. Manual therapy to restore motion and function. Therapeutic exercise to improve strength and flexibility. Neuromuscular re-education for posture and balance. Therapeutic activities to return to functional activities of daily living. Please sign and return to therapist. Thank you for your referral.
--- NOTE | 2021-11-20 13:23 | MHC.PT.DC ---
[facility] [place] [facility] [place] [facility] [place] [facility] [address] James Stein [address] [phone] F: [phone] F: [phone] F: [phone] F: [phone] Physical Therapy Discharge Report Diagnosis: Pre-hab for TKA of R knee Date of Surgery: Scheduled 05/28/20 Date of Evaluation: 05/23/20 Date of Discharge: 05/23/20 Treatments to Date: 1 Cancellations to Date: No Shows to Date: Discharge Status: Discharge Summary: Patient is a 70 year old R handed female who presents with s/s consistent with pre-hab for TKA. She is fairly debilitated at this time from pain and co-morbidities although she has lost weight and is no longer using oxygen. Patient past medical history includes obesity, supplemental oxygen use, DM. Current impairments include pain, ROM, strength, safety, independence, activity tolerance and functional mobility. Functional limitations include decreased ability to walk, stand, transfer, negotiate stairs, and perform weight bearing activities.. Patient is motivated with good rehab potential. Skilled PT will address impairments and functional limitations in order to achieve goals. Pt will likely not require follow up visits before surgery. Electronically signed by: Alfonzo Munson, PT Please sign and return to therapist. Thank you for your referral.
== END | disposition home or self-care (01) ==
LOC: HO.PTCHIC 05-23 08:47
PROVIDERS: PCP Internal Medicine; Visit Provider Physician Assistant
DX: M19.90 Unspecified osteoarthritis, unspecified site (principal)
CPT/HCPCS: 97110; 97162; 99212

== ENCOUNTER 2024-12-23 12:05 | Outpatient (AMB) | payer OTHER, SELFPAY ==
[2024-12-23 12:16] VITALS: BP 158/92; PULSE 89; TEMP 36.4; O2SAT 85; BMI 40.2
--- NOTE | 2024-12-23 12:16 | MHC.OFFWIV ---
Intake Vital Signs 12/23/24 12:16 12/23/24 12:41 Height 5 ft Weight 206 lb BMI 40.2 BP 158/92 H Blood Pressure Location Lt brachial Position Sitting Pulse 89 Pulse Source Pulse Oximeter Temp 97.5 F Temp Source Temporal Artery Scan Pulse Oximetry (%) 85 L 96 Oxygen Delivery Method Room Air Nasal Cannula Oxygen Flow Rate 2 Intake Visit Reasons: EP-?uti & cough, sob Intake Note: Pt came into the [place] [facility] in a wheelchair with family member c/o shortness of breath. Pt speaks in choppy sentences. Coarse audible wheezing heard while rolling through the door. Lungs - coarse exp. wheezing all lobes. Pt roomed immediately. Initial 02 sat 86% on room air. Provider (Priscila White, DONNA and Evans) at bedside. Pt aware of plan of care. Duoneb tx initiated immediately. Patient Tobacco Use Status: Never used Tobacco Allergies adhesive tape [ADHESIVE TAPE] Allergy (Intermediate, Verified 12/23/24 12:17) RASH trimethobenzamide [From TIGAN] Allergy (Mild, Verified 12/23/24 12:17) NAUSEA NSAIDS (Non-Steroidal Anti-Inflamma Adverse Reaction (Mild, Verified 12/23/24 12:17) Nephropathy environmental Allergy (Intermediate, Uncoded 12/23/24 12:17) Nasal congestion HPI HPI Comments History of Present Illness Details Patient is a 74-year-old female with a past medical history of COPD, CKD, morbid obesity, gait instability using walker, T1DM, colitis, herpes simplex came in to be checked for a UTI. Upon arrival, she was having difficulty breathing, after we asked about this, she then complained of 3 days of shortness of breath and wheezing. She has been taking all of her inhalers, as prescribed including budesonide she also takes montelukast at night. She has been using her albuterol inhaler every 4 hours, as well as her albuterol nebulizer every 4 hours. Denies any sick contacts at home. She denies any fevers, ear pain, sinus pain. She has not tried taking any yktc-kuh-vkhjdhn medication [facility] Medical History Exercise hypoxemia Recurrent UTI COPD (chronic obstructive pulmonary disease) Uncontrolled diabetes mellitus Depression, major, recurrent Dysuria Kidney stone on left side Diabetes 1.5, managed as type 1 COPD (chronic obstructive pulmonary disease) Respiratory failure with hypoxia Urinary tract infection Hypoxemia Morbid obesity CKD (chronic kidney disease) Anemia COPD exacerbation Allergic rhinitis ALDO (obstructive sleep apnea) Obesity (BMI 30-39.9) Constipation due to opioid therapy Osteoarthritis of left knee Hx SBO Hyperlipidemia CPAP (continuous positive airway pressure) dependence History of adrenal adenoma Osteochondroma of left femur Arthritis Diabetes Elevated cholesterol History of restless legs syndrome History of diverticulitis GERD (gastroesophageal reflux disease) Surgical History H/O excision of mass History of oophorectomy History of cholecystectomy History of appendectomy History of arthroscopy of left knee History of partial colectomy Hx of cataract extraction H/O exploratory laparotomy H/O colonoscopy History of surgery History of hysterectomy Family History Father HTN (hypertension) Diabetes mellitus Mother HTN (hypertension) Liver cancer Social History 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: Other 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 Other:: ex- has been staying over Housing: House Are you a primary student career development specialist to a significant other at home: No Do you presently have visiting nurse or other home services: Yes Unable to assess alcohol history related to: Unknown Alcohol intake: never Comment: PT SLEEPING Patient Tobacco Use Status: Never used Tobacco e-Cigarette/Vaping Use: Never Used Second Hand Smoke Exposure: No Advance Directives Date on File: 10/19/23 service: No Current occupational status: retired Cognitive needs: No Hearing needs: No Vision needs: No Female Reproductive History Menstrual Age of Menarche: 13 Review of Systems Const All systems reviewed & are unremarkable except as noted in HPI and below Physical Exam Vital Signs: Last Vital Signs Temp 97.5 F 12/23/24 12:16 Pulse 89 12/23/24 12:16 BP 158/92 H 12/23/24 12:16 Pulse Ox 96 12/23/24 12:41 Oxygen Delivery Method Nasal Cannula 12/23/24 12:41 Oxygen Flow Rate 2 12/23/24 12:41 BMI result Body Mass Index 40.2 Const General: cooperative, in distress respiratory and tired appearing Nutritional Appearance: obese Orientation/consciousness: patient oriented x3 Limitations: ambulation with walker HEENT Head: Yes normal to inspection Ears: hearing grossly normal bilaterally, external ears normal and TM's normal bilaterally General nose exam: Normal external nose present, Normal nares present and No nasal discharge present Face and sinus: Yes normal facial exam and Yes sinuses nontender Mouth: Normal oral and palatal mucosa present and moist mucous membranes Throat: Yes tonsils normal, Yes uvula midline and Yes posterior oropharynx abnormal (Erythema) Eyes General: appearance normal, both eyes and all related structures Neck Neck: Yes normal visual inspection Resp Effort & Inspection: normal respiratory effort, able to speak in complete sentences, Actively coughing, labored, pursed lip breathing, respiratory distress (mild), tachypneic, no tripod positioning and uses accessory muscles Auscultation: no crackles, no rales, no rhonchi, wheezes expiratory wheezes, inspiratory wheezes and throughout and diminished lung sounds Cardio Rate: regular rate Rhythm: regular rhythm Heart sounds: normal S1 and S2 Skin General skin exam: no rashes or lesions noted Neuro General: patient oriented x3 Extrem General: Yes normal to inspection and Yes no clubbing, cyanosis or edema Office Procedures Nebulizer Treatment Nebulizer Treatment 38884-Qmgrmsakr/MDI RX initial, or Nebulizer Subsequent Treatment Nebulizer Treatment Nebulizer Treatment [id number]-Ykjbzqocu/MDI RX initial, or Nebulizer Subsequent Treatment Office Meds ipratropium 0.5 mg-albuterol 3 mg (2.5 mg base)/3 mL nebulization soln Performing Provider: Codi Arnold PA-C Performing Location: [facility] Administered by: Codi Arnold PA-C on 12/23/24 12:47 Dose Route Admin Location Dispensed Lot Number Expiration Date [facility] Warm In Worker 3 mL inhalation 3 mL [id number] 09/09/25 [id number] Assessment & Plan Assessment & Plan (1) Acute exacerbation of chronic obstructive pulmonary disease: Code(s): J44.1 - Chronic obstructive pulmonary disease with (acute) exacerbation Plan: Patient's oxygen saturation 84%, place her on 2 L nasal cannula and gave her a nebulizer treatment and called EMS. Lungs are very tight and wheezy without good airflow. Patient will be brought to the [facility] ED. called [facility] ED with expect. Orders: Orders AMB Nebulizer Treatment Today J44.1 - Chronic obstructive pulmonary disease with (acute) exacerbation Medications: New ipratropium-albuterol 0.5 mg-3 mg(2.5 mg base)/3 mL 3 mL inhalation ONCE 3 mL 0RF J44.1 - Chronic obstructive pulmonary disease with (acute) exacerbation Coding Level of Care Code Est Pt Level 5 (07553) Diagnoses Acute exacerbation of chronic obstructive pulmonary disease J44.1 CPT Codes Nebulizer Treatment - Nebulizer Treatment, initial or subsequent: [id number]-Avpoqkmlw/MDI RX initial, or Nebulizer Subsequent Treatment ([id number]) Nebulizer Treatment - Nebulizer Treatment, initial or subsequent: [id number]-Tfznrmdzx/MDI RX initial, or Nebulizer Subsequent Treatment ([id number])
[2024-12-23 12:41] VITALS: O2SAT 96
--- OUTSIDE RECORDS SUMMARY | 2024-12-23 12:51 | XMS_ITS | Patient Health Record ---
Author Organization [facility] Address [address] [place] [address] Care Team Providers Care Cooky Packer Name Role Phone José Manuel Bowman MD Primary Care Provider UnavailEllis Bernabe Unavailable [phone] Gladys BROWNE, Wallace Unavailable Unavailable Allergies Allergen (clinical drug ingredient) Drug/Non Drug Allergy documented on EMR Reaction Allergy Type Onset Date Status trimethobenzamide Tigan Unknown Drug Allergy Active Reason For Referral No Information Problems Problem Type SNOMED Code ICD Code Onset Dates Problem Status W/U Status Risk Notes Problem Ulcerative colitis (K51.90) Active confirmed Plan Of Treatment No Information Insurance Providers Payer Name Payer Address Payer Phone Subscriber Number Group Number Insured Name Patient Relationship to Insured Coverage Start Date Coverage End Date MEDICARE OF [place] [address] [place]ARIN CHAKRAB[place]Y [id number] DESMOND BROOKE Self - patient is the insured MEDICAID OF [employer] [facility] [address] [place] [address] [id number] SWATI BROOKEE Self - patient is the insured Medical (General) History Medical History History ICD Code colonoscopy 11-09-2006 gerd Surgical History Surgery Date(Month/Year) cholecystectomy hysterectomy with oophorectomy D&C and tubal ligation
== END 2024-12-23 13:05 | disposition home or self-care (01) ==
PROVIDERS: PCP Internal Medicine; Visit Provider Physician Assistant
DX: J44.1 Chronic obstructive pulmonary disease with (acute) exacerbation (principal)

== ENCOUNTER → 2024-12-23 12:05 | Outpatient (BNVA) | payer OTHER, SELFPAY | PROVIDERS: PCP Internal Medicine; Visit Provider Physician Assistant | DX: J44.1 Chronic obstructive pulmonary disease with (acute) exacerbation (principal) | CPT/HCPCS: 94640; 99212 ==

== ENCOUNTER 2024-12-23 13:09 | Emergency (ER) | payer OTHER, SELFPAY ==
--- NOTE | ~2024-12-23 | XR_ITS ---
EXAMINATION: XR CHEST CLINICAL INFORMATION: dyspnea COMPARISON: March 06, 2024. TECHNIQUE: Frontal view of the chest was obtained. FINDINGS: Mild prominence of the interstitial markings. No consolidation pleural effusion or pneumothorax. Cardiomediastinal silhouette size is normal and unchanged. Multilevel thoracic spondylosis. Old traumatic deformities in the proximal humerus.. Degenerative changes both shoulders. Patient's large body habitus/obesity. XR/XR chest 1V IMPRESSION: Mild interstitial lung edema in the correct clinical settings. Electronically signed by: Thomas Serna MD 12/23/2024 02:36 PM EDT
[2024-12-23 13:17] VITALS: BP 132/52; BP 183/103; PULSE 108; RESP 24; TEMP 36.6; O2SAT 100; O2SAT 96; BMI 41.1
--- NOTE | 2024-12-23 13:20 | ECG_ITS ---
Test Reason : DYSPNEA Blood Pressure : */* mmHG Vent. Rate : 102 BPM Atrial Rate : 102 BPM P-R Int : 156 ms QRS Dur : 80 ms QT Int : 338 ms P-R-T Axes : 56 33 27 degrees QTcB Int : 440 ms Sinus tachycardia Nonspecific ST abnormality Abnormal ECG When compared with ECG of 04-Apr-2024 20:44, No significant change was found Referred By: Scott Odonnell Electronically Signed By: RAMSEY ZARATE MD
--- NOTE | 2024-12-23 13:22 | ED_ITS ---
HPI - SOB/Dyspnea General Chief Complaint: Dyspnea Stated Complaint: PER EMS DYSPNEA 87% RA, WHEEZING Time Seen by Provider: 12/23/24 13:16 Source: patient and EMS Mode of arrival: EMS Limitations: no limitations History of Present Illness ED Provider: HPI Narrative: 74-year-old woman on p.r.n. oxygen felt like she is short of breath, EMS arrived found the or wheezing not hypoxic, this is going on for the past 2 days she received DuoNeb treatment, Solu-Medrol, presented continued wheezing, no chest pain no fevers or chills no hemoptysis. Related Data Home Medications ?Medication ?Instructions ?Recorded ?Confirmed bupropion HCl 150 mg 24 hr tablet, 150 mg PO DAILY 04/25/20 10/20/24 extended release oxygen-air delivery systems ##1 04/25/20 10/20/24 aspirin 81 mg chewable tablet 81 mg PO DAILY 10/01/21 10/20/24 trazodone 100 mg tablet 200 mg PO BEDTIME 10/01/21 10/20/24 cholecalciferol (vitamin D3) 25 25 mcg PO DAILY 01/04/22 10/20/24 mcg (1,000 unit) capsule hydroxyzine pamoate 25 mg capsule 25 mg PO DAILY 08/13/22 10/20/24 albuterol sulfate 90 mcg/actuation 2 puff inhalation Q4H PRN 09/02/23 10/20/24 aerosol inhaler (ProAir HFA) shortness of breath or wheezing ropinirole 2 mg tablet 2 mg PO BID 09/02/23 10/20/24 gabapentin 300 mg capsule 900 mg PO BEDTIME 10/27/23 10/20/24 amlodipine 5 mg tablet 5 mg PO DAILY 06/29/24 10/20/24 citalopram 10 mg tablet 20 mg PO DAILY 06/29/24 10/20/24 Previous Rx's ?Medication ?Instructions ?Recorded nebulizers (AeroEclipse II #1 ea 02/05/21 Nebulizer) lancets 28 gauge #100 ea 06/24/21 diaper,brief,adult,disposable #64 ea 05/06/22 blood-glucose meter (OneTouch #1 ea 09/19/22 Ultra2 Meter) pen needle, diabetic 31 gauge x #100 ea 10/14/2209/25 (BD Ultra-Fine Mini Pen Needle) walker #1 ea 05/20/23 Shower Chair #1 ea 05/27/23 blood sugar diagnostic (FreeStyle #100 ea 11/13/23 Lite Strips) benzonatate 100 mg capsule 100 mg PO TID PRN cough #14 caps 03/06/24 pen needle, diabetic 31 gauge x #400 ea 03/28/2409/25 lancets 30 gauge #100 ea 04/12/24 gabapentin 300 mg capsule 300 mg PO ONCE #90 caps 04/19/24 atorvastatin 80 mg tablet 80 mg PO DAILY 90 days #90 tabs 05/11/24 montelukast 10 mg tablet 10 mg PO DAILY #90 tabs 07/04/24 ipratropium 0.5 mg-albuterol 3 mg 3 ml inhalation QID SEVERE COPD 30 07/20/24 (2.5 mg base)/3 mL nebulization days #320 mL soln insulin glargine 100 unit/mL (3 See Rx Instructions subcut 07/27/24 mL) subcutaneous pen (Lantus .COMPLEX #45 mL Solostar U-100 Insulin) budesonide 0.5 mg/2 mL suspension 0.5 mg (2 mL) inhalation BID 09/12/24 for nebulization SEVERE COPD 30 days #120 mL insulin aspart U-100 100 unit/mL See Protocol subcut TID #30 mL 09/15/24 (3 mL) subcutaneous pen (Novolog FlexPen U-100 Insulin aspart) lisinopril 10 mg tablet 10 mg PO DAILY 90 days #90 tabs 09/22/24 diaper,brief,adult,disposable #200 ea 11/21/24 dulaglutide 1.5 mg/0.5 mL 1.5 mg (0.5 mL) subcut QWEEK 30 12/12/24 subcutaneous pen injector days #2.5 mL (Trulicity) albuterol sulfate 2.5 mg/3 mL 2.5 mg (3 mL) inhalation Q4-6H PRN 12/13/24 (0.083 %) solution for nebulization shortness of breath or wheezing #75 mL blood sugar diagnostic (OneTouch #100 ea 12/14/24 Ultra Test strips) prednisone 20 mg tablet 40 mg (2 x 20 mg) PO DAILY 5 days 12/23/24 #10 tabs Allergies Allergy/AdvReac Type Severity Reaction Status Date / Time adhesive tape [ADHESIVE TAPE] Allergy Intermediate RASH Verified 12/23/24 13:20 trimethobenzamide Allergy Mild NAUSEA Verified 12/23/24 13:20 [From TIGAN] NSAIDS (Non-Steroidal AdvReac Mild Nephropathy Verified 12/23/24 13:20 Anti-Inflamma environmental Allergy Intermediate Nasal Uncoded 12/23/24 13:20 congestion Review of Systems 2 Constitutional: Constitutional: Reports as per [facility] Past Medical History Medical History Exercise hypoxemia Recurrent UTI COPD (chronic obstructive pulmonary disease) Uncontrolled diabetes mellitus Depression, major, recurrent Dysuria Kidney stone on left side Diabetes 1.5, managed as type 1 COPD (chronic obstructive pulmonary disease) Respiratory failure with hypoxia Urinary tract infection Hypoxemia Morbid obesity CKD (chronic kidney disease) Anemia COPD exacerbation Allergic rhinitis ALDO (obstructive sleep apnea) Obesity (BMI 30-39.9) Constipation due to opioid therapy Osteoarthritis of left knee Hx SBO Hyperlipidemia CPAP (continuous positive airway pressure) dependence History of adrenal adenoma Osteochondroma of left femur Arthritis Diabetes Elevated cholesterol History of restless legs syndrome History of diverticulitis GERD (gastroesophageal reflux disease) Surgical History H/O excision of mass History of oophorectomy History of cholecystectomy History of appendectomy History of arthroscopy of left knee History of partial colectomy Hx of cataract extraction H/O exploratory laparotomy H/O colonoscopy History of surgery History of hysterectomy Family History Family History Father HTN (hypertension) Diabetes mellitus Mother HTN (hypertension) Liver cancer Social History Social History 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: Other 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 Other:: ex- has been staying over Housing: House Are you a primary transitions rn care coordinator to a significant other at home: No Do you presently have visiting nurse or other home services: Yes Unable to assess alcohol history related to: Unknown Alcohol intake: never Comment: PT SLEEPING Patient Tobacco Use Status: Never used Tobacco Smoked in Last 30 Days: No e-Cigarette/Vaping Use: Never Used Second Hand Smoke Exposure: No Use of substances other than those prescribed or required for medical reasons: No Advance Directives: Yes Advance Directives on File: Yes Advance Directives Date on File: 10/22/23 Do you have a plan to hurt others: No Plan service: No Current occupational status: retired Cognitive needs: No Hearing needs: No Vision needs: No Physical Exam 2 Vital Signs: Vital Signs: Last Vital Signs Temp 97.8 F 12/23/24 13:17 Pulse 106 H 12/23/24 13:54 Resp 21 H 12/23/24 13:54 BP 132/52 L 12/23/24 13:17 Pulse Ox 94 12/23/24 13:54 O2 Del Method Aerosol Mask 12/23/24 13:54 BMI result Body Mass Index 41.1 Const: Other: * Gen: ?Overall well-appearing patient * HEENT: PERRLA, EOMI, MMM, * Neck: Supple, no LAD * CV: RRR, no obvious murmurs appreciated * Resp: ?Expiratory wheezing throughout * Abd: ?Bowel sounds are present, no tenderness no rebound no rigidity * MSK: FROM, strength 5/5 all extremities, no pitting edema in the lower extremities noted * Skin: Warm, dry, intact, * Neuro: ?Alert and oriented x3, moving upper and lower extremities symmetrically, no obvious facial asymmetry noted Medications Administered Generic Name Dose Route Start Last Admin Trade Name Freq PRN Reason Stop Dose Admin Magnesium Sulfate 2 gm in 50 mls @ 25 mls/hr 12/23/24 13:20 12/23/24 13:52 Magnesium Sulfate/H2o IV 12/23/24 15:19 25 mls/hr ONCE ONE Administration Discontinued Medications Generic Name Dose Route Start Last Admin Trade Name Freq PRN Reason Stop Dose Admin Levalbuterol HCl 3.75 mg/ 0 mg 12/23/24 13:23 12/23/24 13:30 Ipratropium [place] 0.5 mg INHALE 12/23/24 13:24 1 dose ONCE ONE Administration Medical Decision Making Medical Decision Making MDM Narrative: Presenting with what appears to be COPD/asthma exacerbation, considerations for further workup as below, we will continue albuterol treatment, add on magnesium, we will determine the necessity for admission, at least at the time of my evaluation based on presentation I did not feel further imaging such as CT is indicated to workup for PE. 15:15 patient re-evaluated, she feels much better, at this point she is not wheezing, she feels comfortable being discharged home. Differential Diagnosis Differential Diagnoses: The differential diagnosis associated with the presentation includes CHF, COPD exacerbation, pneumonia, pneumothorax, ACS, PE, Admission/Observation Consideration of admission/observation: Escalation of care including admission/observation considered Lab Data MDM Lab Attestation statement: I reviewed the patient's lab results. 12/23/24 13:51 12/23/24 13:51 Labs: Lab Results 12/23/24 12/23/24 12/23/24 Range/Units 13:51 13:55 14:03 WBC 15.1 H (4.8-10.8) X10*3/uL RBC 4.30 (4.20-5.50) X10*6/uL Hgb 12.0 (12.0-16.0) g/dl Hct 37.7 (37.0-47.0) % MCV 87.7 (80.0-98.0) fL MCH 27.9 (27.0-33.0) pg MCHC 31.8 (31.0-35.0) g/dl RDW 13.8 (11.0-16.0) % Plt Count 249 (160-400) X10*3/uL MPV 11.2 (9.4-12.3) fL Immature Gran % (Auto) 0.3 (0.0-0.4) % Neut % (Auto) 56.2 (45-73) % Lymph % (Auto) 35.8 (20-40) % [place] % (Auto) 4.8 (2-11) % Eos % (Auto) 2.6 (0-4) % Baso % (Auto) 0.3 (0-2) % Lymph # (Auto) 5.4 H (1.2-4.9) X10*3/uL [place] # (Auto) 0.7 (0.1-1.2) X10*3/uL Eos # (Auto) 0.4 (0.0-0.4) X10*3/uL Baso # (Auto) 0.0 (0.0-0.2) X10*3/uL Abs Immat Gran (auto) 0.05 H (0.00-0.03) X10*3/uL Absolute Neuts (auto) 8.5 H (2.0-8.3) x10*3/uL Absolute Nucleated RBC 0.000 (0.0-0.012) X10*3/uL Nucleated RBC % (auto) 0.0 (0.0-0.2) /100WBC Smear Tech's Comments VERIFIED VBG pH 7.45 H (7.32-7.43) VBG pCO2 45 mmHg VBG pO2 52 mmHg VBG HCO3 32 H (22-26) mmol/L VBG O2 Saturation 82.0 % VBG Base Excess 7.7 mmol/L Sodium 141 (135-145) mmol/L Potassium 4.6 (3.3-5.1) mmol/L Chloride 103 (96-108) mmol/L Carbon Dioxide 28 (22-29) mmol/L Anion Gap 15 (12-20) BUN 18 H (9-16) mg/dL Creatinine 1.48 H (0.5-1.4) mg/dL Estim Creat Clear Calc 34.4 Estimated GFR 34 Random Glucose 100 (60-115) mg/dL Calcium 8.9 D (8.4-10.2) mg/dL B-Natriuretic Peptide < 10 (<100) pg/mL Urine Color Yellow Urine Appearance Cloudy Urine pH 8.0 (5.0-9.0) Ur Specific [place] 1.015 (1.005-1.025) Urine Protein Trace (Neg-Trace) mg/dL Urine Glucose (UA) Negative (Negative) mg/dL Urine Ketones Negative (Negative) mg/dL Urine Blood Small (1+) H (Negative) Urine Nitrite Positive H (Negative) Ur Leukocyte Esterase Large (3+) H (Negative) Urine RBC 0-2 (0-2) /HPF Urine WBC >50 H (0-5) /HPF Ur Squamous Epith Cells 3-5 (0-2) /HPF Urine Bacteria 4+ (None Seen) Hyaline Casts 0-2 (0-2) /LPF Influenza Type A (PCR) NEGATIVE (Negative) Influenza Type B (PCR) NEGATIVE (Negative) RSV RNA Qual (PCR) NEGATIVE (Negative) SARS-CoV-2 RNA (RT-PCR) NEGATIVE (Negative) Independent Interpretation I performed an independent interpretation of an: EKG (102 beats per minute otherwise normal ECG without dysrhythmia, AV ollie blocks or ST-T changes to suspect underlying ACS, my independent interpretation) and Plain X-Ray (No pneumothorax, no pneumonia I do not appreciate significant vascular congestion) Radiology Impression Discussion of test interpretation with radiology: I have reviewed the radiologist's reading. Radiologist Impression: No BNP no evidence for crackles on exam do not suspect pulmonary edema Critical Care Time Critical Care Time Critical Care Time: Yes Total Critical Care Time: 45 Attestation: Time is exclusive of separately billable procedures. Time includes: direct patient care, patient reassessment, coordination of patient care, interpretation of data (laboratory data, pulse oximetry, arterial blood gases and chest xrays), review of patient's medical records, medical consultation and documentation of patient care. Procedures excluded from critical care time: central intravenous line placement and electrocardiography. Discharge Plan Discharge Clinical Impression: Acute exacerbation of chronic obstructive pulmonary disease COPD (chronic obstructive pulmonary disease) Qualifiers: COPD type: emphysema Emphysema type: panlobular Qualified Code(s): J43.1 - Panlobular emphysema Patient Disposition: Home, Self-Care Additional Instructions: Continue with the nebulizer treatment or 2 puffs of albuterol every 4 hours for the rest of the day, continue steroids starting tomorrow, your workup today has been reassuring, you improved with steroids, IV magnesium and DuoNeb treatments Follow up with the PCP any other issues or concerns come back to the ER Prescriptions: New prednisone 20 mg tablet 40 mg PO DAILY 5 Days Qty: 10 0RF No Action (DME) lancets 28 gauge misc See Rx Instructions topical TID Qty: 100 3RF Rx Instructions: once a day (DME) diaper,brief,adult,disposable Misc See Rx Instructions .Route Qty: 64 5RF Rx Instructions: Use for stress incontinence (DME) blood-glucose meter [OneTouch Ultra2 Meter] Misc See Rx Instructions .Route Qty: 1 0RF Rx Instructions: Use to check blood sugar twice daily and when having symptoms of hypo/hyperglycemia (DME) pen needle, diabetic [BD Ultra-Fine Mini Pen Needle] 31 gauge x 3/16 needle See Rx Instructions .Route Qty: 100 2RF Rx Instructions: Use to administer insulin twice daily (DME) walker Misc See Rx Instructions .Route Qty: 1 0RF Rx Instructions: Wheeled walker with seat and brakes (DME) Shower Chair Misc See Rx Instructions .Route Qty: 1 0RF Rx Instructions: Shower chair with back and arm rests (DME) FreeStyle Lite Strips Strip See Rx Instructions .Route Qty: 100 6RF Rx Instructions: Use to check blood sugar 3 times a day as needed (DME) pen needle, diabetic 31 gauge x 3/16 needle See Rx Instructions subcut TID Qty: 400 1RF Rx Instructions: check blood sugar four times per a day (DME) lancets 30 gauge misc See Rx Instructions .Route Qty: 100 2RF Rx Instructions: Use to check blood sugar twice daily and when having symptoms of hypo/hyperglycemia gabapentin 300 mg capsule 300 mg PO ONCE Qty: 90 2RF atorvastatin 80 mg tablet 80 mg PO DAILY 90 Days Qty: 90 2RF montelukast 10 mg tablet 10 mg PO DAILY Qty: 90 5RF ipratropium-albuterol 0.5 mg-3 mg(2.5 mg base)/3 mL solution for nebulization 3 ml inhalation QID 30 Days Qty: 320 3RF insulin glargine [Lantus Solostar U-100 Insulin] 100 unit/mL (3 mL) insulin pen See Rx Instructions subcut .COMPLEX Qty: 45 1RF Rx Instructions: 15 units in am, 30 units at bedtime each day, subcutaneously; budesonide 0.5 mg/2 mL suspension for nebulization 0.5 mg inhalation BID 30 Days Qty: 120 1RF insulin aspart U-100 [Novolog FlexPen U-100 Insulin] 100 unit/mL (3 mL) insulin pen See Protocol subcut TID Qty: 30 1RF Protocol: Insulin Correction Scale Less than or equal to 110 ---- Give (units): 0 111 to 150 Give (units): 0 151 to 200 Give (units): 2 201 to 250 Give (units): 6 251 to 300 Give (units): 8 301 to 350 Give (units): 10 Greater than 350 Give (units): 12 Call MD if Blood Glucose > : 350 Rx Instructions: Up to 10 units before each meal according to sliding scale lisinopril 10 mg tablet 10 mg PO DAILY 90 Days Qty: 90 3RF (DME) diaper,brief,adult,disposable Misc See Rx Instructions .Route Qty: 200 11RF Rx Instructions: Size large adult pull up briefs Trulicity 1.5 mg/0.5 mL pen injector 1.5 mg subcut QWEEK 30 Days Qty: 2.5 4RF albuterol sulfate 2.5 mg /3 mL (0.083 %) solution for nebulization 2.5 mg inhalation Q4-6H PRN (Reason: shortness of breath or wheezing) Qty: 75 0RF (DME) OneTouch Ultra Test Strip See Rx Instructions .Route Qty: 100 2RF Rx Instructions: Use to check blood sugar 3 times a day as needed (DME) AeroEclipse II Nebulizer [facility] [place] See Rx Instructions .ROUTE .MEDSUPPLY Qty: 1 0RF Rx Instructions: As directed hydroxyzine pamoate 25 mg capsule 25 mg PO DAILY trazodone 100 mg tablet 200 mg PO BEDTIME aspirin 81 mg Tablet,Chewable 81 mg PO DAILY cholecalciferol (vitamin D3) 25 mcg (1,000 unit) Capsule 25 mcg PO DAILY citalopram 10 mg tablet 20 mg PO DAILY albuterol sulfate [ProAir HFA] 90 mcg/actuation HFA aerosol inhaler 2 puff inhalation Q4H PRN (Reason: shortness of breath or wheezing) ropinirole 2 mg tablet 2 mg PO BID gabapentin 300 mg capsule 900 mg PO BEDTIME benzonatate 100 mg capsule 100 mg PO TID PRN (Reason: cough) Qty: 14 0RF bupropion HCl 150 mg tablet extended release 24 hr 150 mg PO DAILY (DME) oxygen-air delivery systems Device See Rx Instructions .ROUTE .MEDSUPPLY Qty: 1 Rx Instructions: As directed amlodipine 5 mg tablet 5 mg PO DAILY Referrals: Shelbi Perez MD [Primary Care Provider] - Print Language: Senegalese
[2024-12-23 13:30] VITALS: PULSE 105; RESP 28; O2SAT 94
[2024-12-23] MEDS: levalbuterol HCL 3.75 MG, Ipratropium Bromide 0.5 MG INHALE (13:30)
[2024-12-23] MEDS: Magnesium Sulfate/H2O 2 GM/50 ML PIGGYBACK IV (13:52)
[2024-12-23 13:54] VITALS: PULSE 106; RESP 21; O2SAT 94
[2024-12-23 13:59] LABS: VBG Base Excess 7.7 mmol/L; VBG HCO3 32 mmol/L (22-26); VBG pCO2 45 mmHg; VBG pH 7.45 (7.32-7.43); VBG pO2 52 mmHg
[2024-12-23 14:00] LABS: Basophils Percent Auto 0.3 % (0-2); Eosinophils Absolute Auto 0.4 X10*3/uL (0.0-0.4); Eosinophils Percent Auto 2.6 % (0-4); Hematocrit 37.7 % (37.0-47.0); Imm Gran Abs Auto 0.05 X10*3/uL (0.00-0.03); Imm Gran Pct Auto 0.3 % (0.0-0.4); Lymphocytes Absolute Auto 5.4 X10*3/uL (1.2-4.9); Lymphocytes Percent Auto 35.8 % (20-40); MANUAL DIFF FLAG SCAN; Mean Corpuscular HGB Conc 31.8 g/dl (31.0-35.0); Mean Corpuscular Hemoglobin 27.9 pg (27.0-33.0); Mean Corpuscular Volume 87.7 fL (80.0-98.0); Mean Platelet Volume 11.2 fL (9.4-12.3); Monocytes Absolute Auto 0.7 X10*3/uL (0.1-1.2); Monocytes Percent Auto 4.8 % (2-11); Neutrophils Absolute Auto 8.5 x10*3/uL (2.0-8.3); Neutrophils Percent Auto 56.2 % (45-73); Platelet Count 249 X10*3/uL (160-400); Red Cell Distribution Width 13.8 % (11.0-16.0); SCAN SMEAR FLAG 1; Venous Blood Gas Refer to POC result; White Blood Count 15.1 X10*3/uL (4.8-10.8)
[2024-12-23 14:09] LABS: Appearance Urine Cloudy; Color Urine Yellow; Glucose Urine UA Negative (Negative); Leukocyte Esterase Urine Large (3+) (Negative); Nitrite Urine Positive (Negative); Specific Gravity - Urine 1.015 (1.005-1.025); UMIC TRIGGER UACC YES; Urine Blood Small (1+) (Negative); Urine Ketones Negative (Negative); Urine Protein Trace mg/dL (Neg-Trace)
[2024-12-23 14:14] LABS: Anion Gap 15 (12-20); Blood Urea Nitrogen 18 mg/dL (9-16); Calcium 8.9 mg/dL (8.4-10.2); Carbon Dioxide 28 mmol/L (22-29); Chloride 103 mmol/L (96-108); Creatinine Clr Calc Pharmacy 34.4; Estimated Glomerular Filt Rate 34; Glucose Random 100 mg/dL (60-115); Potassium 4.6 mmol/L (3.3-5.1); Sodium 141 mmol/L (135-145)
[2024-12-23 14:18] LABS: Bacteria Urine 4+ (None Seen); Hyaline Casts Urine 0-2 /LPF (0-2); RBC Urine 0-2 /HPF (0-2); UACC Culture Trigger YES; WBC Urine >50 /HPF (0-5)
[2024-12-23 14:18] LABS: B Type Natriuretic Peptide < 10 pg/mL (<100)
[2024-12-23 14:20] LABS: SLIDE REVIEW VERIFIED
--- NOTE | 2024-12-23 14:25 | PC.NURSE ---
Pt placed on purewick, nothing else needed at this time. Care ongoing
[2024-12-23 15:01] LABS: Influenza A PCR NEGATIVE (Negative); Influenza B PCR NEGATIVE (Negative); Resp Syncy Virus RNA Qual PCR NEGATIVE (Negative); SARS COV2 PCR INHOUSE NEGATIVE (Negative)
[2024-12-23 15:20] VITALS: BP 159/77; PULSE 115; RESP 20; TEMP 37.1; O2SAT 96
== END 2024-12-23 16:01 | disposition home or self-care (01) ==
PROVIDERS: Emergency Provider Emergency Medicine; PCP Internal Medicine
DX: J44.1 Chronic obstructive pulmonary disease with (acute) exacerbation (principal); J43.1 Panlobular emphysema; R06.02 Shortness of breath; E13.22 Other specified diabetes mellitus with diabetic chronic kidney disease; Z03.818 Encounter for observation for suspected exposure to other biological agents ruled out; Z79.899 Other long term (current) drug therapy
CPT/HCPCS: 0241U; 36415; 71045; 80048; 81001; 82803; 83880; 85025; 87086; 87088; 87186; 93005; 94640; 96365; 96366; 99284; 99285; J3475

== ENCOUNTER → 2024-12-23 13:20 | Outpatient (BNV) | payer OTHER, SELFPAY | PROVIDERS: Emergency Provider Emergency Medicine; PCP Internal Medicine; Visit Provider Radiology Diagnostic Radiology | DX: R06.00 Dyspnea, unspecified (principal) | CPT/HCPCS: 71045 ==

== ENCOUNTER → 2024-12-23 13:20 | Outpatient (BNV) | payer OTHER, SELFPAY | PROVIDERS: Emergency Provider Emergency Medicine; PCP Internal Medicine; Visit Provider Internal Medicine Cardiovascular Disease | DX: R00.0 Tachycardia, unspecified (principal) | CPT/HCPCS: 93010 ==

== ENCOUNTER 2024-12-23 22:24 | Emergency (ER) | payer OTHER, SELFPAY ==
[2024-12-23 22:47] VITALS: BP 140/62; PULSE 111; RESP 26; TEMP 36.9; O2SAT 95; BMI 30.5
[2024-12-23 23:21] LABS: Basophils Percent Auto 0.1 % (0-2); Hematocrit 34.9 % (37.0-47.0); Hemoglobin 11.4 g/dl (12.0-16.0); Imm Gran Abs Auto 0.06 X10*3/uL (0.00-0.03); Imm Gran Pct Auto 0.4 % (0.0-0.4); Lymphocytes Absolute Auto 0.6 X10*3/uL (1.2-4.9); MANUAL DIFF FLAG SCAN; Mean Corpuscular HGB Conc 32.7 g/dl (31.0-35.0); Mean Corpuscular Hemoglobin 28.1 pg (27.0-33.0); Mean Platelet Volume 11.3 fL (9.4-12.3); Monocytes Absolute Auto 0.1 X10*3/uL (0.1-1.2); Monocytes Percent Auto 0.4 % (2-11); Neutrophils Absolute Auto 13.2 x10*3/uL (2.0-8.3); Neutrophils Percent Auto 95.1 % (45-73); Platelet Count 245 X10*3/uL (160-400); Red Blood Count 4.06 X10*6/uL (4.20-5.50); Red Cell Distribution Width 13.9 % (11.0-16.0); SCAN SMEAR FLAG 1; White Blood Count 13.9 X10*3/uL (4.8-10.8)
[2024-12-23 23:40] LABS: Glucose, Whole Blood 550 mg/dL (60-115)
[2024-12-23 23:41] LABS: SLIDE REVIEW VERIFIED
[2024-12-24 00:02] LABS: Alanine Aminotransferase 12 U/L (0-31); Alkaline Phosphatase 49 U/L (39-117); Anion Gap 17 (12-20); Aspartate Amino Transferase 19 U/L (5-31); Bilirubin Total 0.3 mg/dL (0.0-1.0); Blood Urea Nitrogen 26 mg/dL (9-16); Calcium 8.6 mg/dL (8.4-10.2); Carbon Dioxide 23 mmol/L (22-29); Chloride 99 mmol/L (96-108); Creatinine Clr Calc Pharmacy 32.5; Estimated Glomerular Filt Rate 28; Glucose Random 631 mg/dL (60-115); Potassium 4.5 mmol/L (3.3-5.1); Sodium 134 mmol/L (135-145); Total Protein 6.8 g/dL (6.5-8.0)
--- NOTE | 2024-12-24 00:42 | ED.GENADULT ---
HPI - General Adult General Chief complaint: General Medical Stated complaint: elevated BS 600 Time Seen by Provider: 12/24/24 00:27 History of Present Illness ED Provider: Fredis Mercado MD HPI narrative: 74-year-old female who returns to the hospital she tells me that she was in the ED earlier today for exacerbation of COPD she said she was wheezy received the steroid and was discharged home she tells me that earlier today when EMS got her at her home her blood sugar was 90 and over the past several days it has been well controlled in the 150 range since she is been on Trulicity. She takes Humalog b.i.d. on a sliding scale. No nausea vomiting fever. She feels her respiratory complaints have actually improved today. Related Data Home Medications ?Medication ?Instructions ?Recorded ?Confirmed bupropion HCl 150 mg 24 hr tablet, 150 mg PO DAILY 04/25/20 10/20/24 extended release oxygen-air delivery systems ##1 04/25/20 10/20/24 aspirin 81 mg chewable tablet 81 mg PO DAILY 10/01/21 10/20/24 trazodone 100 mg tablet 200 mg PO BEDTIME 10/01/21 10/20/24 cholecalciferol (vitamin D3) 25 25 mcg PO DAILY 01/04/22 10/20/24 mcg (1,000 unit) capsule hydroxyzine pamoate 25 mg capsule 25 mg PO DAILY 08/13/22 10/20/24 albuterol sulfate 90 mcg/actuation 2 puff inhalation Q4H PRN 09/02/23 10/20/24 aerosol inhaler (ProAir HFA) shortness of breath or wheezing ropinirole 2 mg tablet 2 mg PO BID 09/02/23 10/20/24 gabapentin 300 mg capsule 900 mg PO BEDTIME 10/27/23 10/20/24 amlodipine 5 mg tablet 5 mg PO DAILY 06/29/24 10/20/24 citalopram 10 mg tablet 20 mg PO DAILY 06/29/24 10/20/24 Previous Rx's ?Medication ?Instructions ?Recorded nebulizers (AeroEclipse II #1 ea 02/05/21 Nebulizer) lancets 28 gauge #100 ea 06/24/21 diaper,brief,adult,disposable #64 ea 05/06/22 blood-glucose meter (OneTouch #1 ea 09/19/22 Ultra2 Meter) pen needle, diabetic 31 gauge x #100 ea 10/14/2209/25 (BD Ultra-Fine Mini Pen Needle) walker #1 ea 05/20/23 Shower Chair #1 ea 05/27/23 blood sugar diagnostic (FreeStyle #100 ea 11/13/23 Lite Strips) benzonatate 100 mg capsule 100 mg PO TID PRN cough #14 caps 03/06/24 pen needle, diabetic 31 gauge x #400 ea 03/28/2409/25 lancets 30 gauge #100 ea 04/12/24 gabapentin 300 mg capsule 300 mg PO ONCE #90 caps 04/19/24 atorvastatin 80 mg tablet 80 mg PO DAILY 90 days #90 tabs 05/11/24 montelukast 10 mg tablet 10 mg PO DAILY #90 tabs 07/04/24 ipratropium 0.5 mg-albuterol 3 mg 3 ml inhalation QID SEVERE COPD 30 07/20/24 (2.5 mg base)/3 mL nebulization days #320 mL soln insulin glargine 100 unit/mL (3 See Rx Instructions subcut 07/27/24 mL) subcutaneous pen (Lantus .COMPLEX #45 mL Solostar U-100 Insulin) budesonide 0.5 mg/2 mL suspension 0.5 mg (2 mL) inhalation BID 09/12/24 for nebulization SEVERE COPD 30 days #120 mL insulin aspart U-100 100 unit/mL See Protocol subcut TID #30 mL 09/15/24 (3 mL) subcutaneous pen (Novolog FlexPen U-100 Insulin aspart) lisinopril 10 mg tablet 10 mg PO DAILY 90 days #90 tabs 09/22/24 diaper,brief,adult,disposable #200 ea 11/21/24 dulaglutide 1.5 mg/0.5 mL 1.5 mg (0.5 mL) subcut QWEEK 30 12/12/24 subcutaneous pen injector days #2.5 mL (Trulicity) albuterol sulfate 2.5 mg/3 mL 2.5 mg (3 mL) inhalation Q4-6H PRN 12/13/24 (0.083 %) solution for nebulization shortness of breath or wheezing #75 mL blood sugar diagnostic (OneTouch #100 ea 12/14/24 Ultra Test strips) prednisone 20 mg tablet 40 mg (2 x 20 mg) PO DAILY 5 days 12/23/24 #10 tabs cefpodoxime 100 mg tablet 100 mg PO BID 7 days #14 tabs 12/27/24 Allergies Allergy/AdvReac Type Severity Reaction Status Date / Time adhesive tape (ADHESIVE TAPE) Allergy Intermediate RASH Verified 12/23/24 22:48 trimethobenzamide (From Allergy Mild NAUSEA Verified 12/23/24 22:48 TIGAN) NSAIDS (Non-Steroidal AdvReac Mild Nephropathy Verified 12/23/24 22:48 Anti-Inflamma environmental Allergy Intermediate Nasal Uncoded 12/23/24 22:48 congestion PMFSH Past Medical History Medical History Exercise hypoxemia Recurrent UTI COPD (chronic obstructive pulmonary disease) Uncontrolled diabetes mellitus Depression, major, recurrent Dysuria Kidney stone on left side Diabetes 1.5, managed as type 1 COPD (chronic obstructive pulmonary disease) Respiratory failure with hypoxia Urinary tract infection Hypoxemia Morbid obesity CKD (chronic kidney disease) Anemia COPD exacerbation Allergic rhinitis ALDO (obstructive sleep apnea) Obesity (BMI 30-39.9) Constipation due to opioid therapy Osteoarthritis of left knee Hx SBO Hyperlipidemia CPAP (continuous positive airway pressure) dependence History of adrenal adenoma Osteochondroma of left femur Arthritis Diabetes Elevated cholesterol History of restless legs syndrome History of diverticulitis GERD (gastroesophageal reflux disease) Surgical History H/O excision of mass History of oophorectomy History of cholecystectomy History of appendectomy History of arthroscopy of left knee History of partial colectomy Hx of cataract extraction H/O exploratory laparotomy H/O colonoscopy History of surgery History of hysterectomy Family History Family History Father HTN (hypertension) Diabetes mellitus Mother HTN (hypertension) Liver cancer Social History Social History 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: Other 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 Other:: ex- has been staying over Housing: House Are you a primary resident care manager to a significant other at home: No Do you presently have visiting nurse or other home services: Yes Unable to assess alcohol history related to: Unknown Alcohol intake: never Comment: PT SLEEPING Patient Tobacco Use Status: Never used Tobacco Smoked in Last 30 Days: No e-Cigarette/Vaping Use: Never Used Second Hand Smoke Exposure: No Use of substances other than those prescribed or required for medical reasons: No Advance Directives: Yes Advance Directives on File: Yes Advance Directives Date on File: 10/22/23 service: No Current occupational status: retired Cognitive needs: No Hearing needs: No Vision needs: No Physical Exam ED Vital Signs: Vital Signs - 24 hr 12/23/24 22:47 Temperature 98.4 F Pulse Rate 111 H Respiratory Rate 26 H Blood Pressure 140/62 H Pulse Oximetry 95 Oxygen Delivery Method Nasal Cannula BMI result Body Mass Index 30.5 Const Other: EXAM: Gen: Alert, awake, well appearing, well hydrated. Obese, edentulous, no respiratory distress nasal cannula at 1 L, saturation on the monitor 95% Head: Atraumatic Eyes: Anicteric, Normal conjunctiva. ENT: Moist mucosa, no pallor. ? Neck: Supple. Skin: ?No observable rash or bruising on exposed or examined skin Respiratory: Breathing comfortably, No distress.Clear to auscultation bilaterally, symmetric chest expansion, No wheeze, rales, ronchi. Cardiovascular: Regular rate and rhythm. No murmurs or rub. Well perfused periphery, warm extremities. No edema. ? Abdominal: No FOCAL TENDERNESS. Soft, no objective distension. No palpable masses or obvious organomegaly. ?No guarding, no rebound tenderness or other peritoneal findings. : No flank tenderness. Neuro: Alert. Gross movement of all extremities intact. ? Psych: Calm. Cooperative. MSK: No grossly visible deformity. Vital signs: See flowsheet Course Course Course Narrative: Shima Rai PA-C [id number] 12/27/2024: Patient's urine positive for Proteus Mirabilis which is different from patient's previous bacteria. Antibiotic sent. Patient called and informed. Medications Administered Discontinued Medications Generic Name Dose Route Start Last Admin Trade Name Freq PRN Reason Stop Dose Admin Insulin Human Regular 16 unit 12/24/24 00:45 12/24/24 00:55 Insulin Regular, Human 100 Unit/Ml 10 Ml Vial SUBCUT 12/24/24 00:46 16 unit ONCE ONE Administration Insulin Human Regular 10 unit 12/24/24 01:36 12/24/24 01:43 Insulin Regular, Human 100 Unit/Ml 10 Ml Vial SUBCUT 12/24/24 01:37 10 unit ONCE ONE Administration Medical Decision Making Medical Decision Making MDM Narrative: 74-year-old female diabetic COPD exacerbation in the ED this afternoon with initiation of prednisone. Labs with no acidosis, anion gap. Hyperglycemia 600+. No distress from a respiratory standpoint I think she is stable and improved. We discussed that this is a complication adverse effect of prednisone in the saturation of patients who need prednisone for COPD exacerbation with underlying diabetes. We will do subcu insulin here Differential Diagnosis Differential Diagnoses: The differential diagnosis associated with the presentation includes Dehydration, prednisone induced glucose Lab Data 12/23/24 23:16 12/23/24 23:16 Labs: Lab Results 12/23/24 12/23/24 12/24/24 Range/Units 22:56 23:16 01:32 WBC 13.9 H (4.8-10.8) X10*3/uL RBC 4.06 L (4.20-5.50) X10*6/uL Hgb 11.4 L (12.0-16.0) g/dl Hct 34.9 L (37.0-47.0) % MCV 86.0 (80.0-98.0) fL MCH 28.1 (27.0-33.0) pg MCHC 32.7 (31.0-35.0) g/dl RDW 13.9 (11.0-16.0) % Plt Count 245 (160-400) X10*3/uL MPV 11.3 (9.4-12.3) fL Immature Gran % (Auto) 0.4 (0.0-0.4) % Neut % (Auto) 95.1 H (45-73) % Lymph % (Auto) 4.0 L (20-40) % Caswell % (Auto) 0.4 L (2-11) % Eos % (Auto) 0.0 (0-4) % Baso % (Auto) 0.1 (0-2) % Lymph # (Auto) 0.6 L (1.2-4.9) X10*3/uL [place] # (Auto) 0.1 (0.1-1.2) X10*3/uL Eos # (Auto) 0.0 (0.0-0.4) X10*3/uL Baso # (Auto) 0.0 (0.0-0.2) X10*3/uL Abs Immat Gran (auto) 0.06 H (0.00-0.03) X10*3/uL Absolute Neuts (auto) 13.2 H (2.0-8.3) x10*3/uL Absolute Nucleated RBC 0.000 (0.0-0.012) X10*3/uL Nucleated RBC % (auto) 0.0 (0.0-0.2) /100WBC Smear Tech's Comments VERIFIED Sodium 134 L (135-145) mmol/L Potassium 4.5 (3.3-5.1) mmol/L Chloride 99 (96-108) mmol/L Carbon Dioxide 23 (22-29) mmol/L Anion Gap 17 (12-20) BUN 26 H (9-16) mg/dL Creatinine 1.79 H (0.5-1.4) mg/dL Estim Creat Clear Calc 32.5 Estimated GFR 28 POC Glucose 550 H* 473 H* (60-115) mg/dL Random Glucose 631 H* (60-115) mg/dL Calcium 8.6 (8.4-10.2) mg/dL Total Bilirubin 0.3 (0.0-1.0) mg/dL AST 19 (5-31) U/L ALT 12 (0-31) U/L Alkaline Phosphatase 49 (39-117) U/L Total Protein 6.8 (6.5-8.0) g/dL Albumin 4.0 (3.5-5.0) g/dL Discharge Plan Discharge Clinical Impression: Acute hyperglycemia, Acute UTI Patient Disposition: Home, Self-Care Instructions: Diabetic Hyperglycemia (ED) Additional Instructions: DISCHARGE DIAGNOSES: Hyperglycemia, maximally over 600 HISTORY OF PRESENTATION: Recent exacerbation of COPD started on prednisone and elevated glucose today EMERGENCY DEPARTMENT COURSE,TESTS, TREATMENTS: While in the ED today you received 2 separate subcutaneous doses of insulin 1st 16, after this your blood sugar was 473. After that we gave you another 10 units of NovoLog subcutaneous. Please check your blood sugar 1st thing in the morning and repeat as you typically would continue your sliding scale and the prednisone DISCHARGE MEDICATIONS: ?[We have made no changes to your regular medication regimen] FOLLOW-UP: ?Call your primary or general physician soon as possible to discuss your symptoms, your ED visit and to discuss follow up plans Call your primary doctor for follow up INSTRUCTIONS ?& RETURN PRECAUTIONS: If any symptoms change first call your primary physician, if it is after-hours your primary doctors office should have a provider carbon grinder you can speak with. If the symptoms are severe or very concerning to you then call 911 or return to the ED. Fredis Mercado MD Emergency Physician [facility] Prescriptions: New cefpodoxime 100 mg tablet 100 mg PO BID 7 Days Qty: 14 0RF Rx Instructions: must administer with a meal/food No Action (DME) lancets 28 gauge misc See Rx Instructions topical TID Qty: 100 3RF Rx Instructions: once a day (DME) diaper,brief,adult,disposable Misc See Rx Instructions .Route Qty: 64 5RF Rx Instructions: Use for stress incontinence (DME) blood-glucose meter [OneTouch Ultra2 Meter] Misc See Rx Instructions .Route Qty: 1 0RF Rx Instructions: Use to check blood sugar twice daily and when having symptoms of hypo/hyperglycemia (DME) pen needle, diabetic [BD Ultra-Fine Mini Pen Needle] 31 gauge x 3/16 needle See Rx Instructions .Route Qty: 100 2RF Rx Instructions: Use to administer insulin twice daily (DME) walker Misc See Rx Instructions .Route Qty: 1 0RF Rx Instructions: Wheeled walker with seat and brakes (DME) Shower Chair Misc See Rx Instructions .Route Qty: 1 0RF Rx Instructions: Shower chair with back and arm rests (DME) FreeStyle Lite Strips Strip See Rx Instructions .Route Qty: 100 6RF Rx Instructions: Use to check blood sugar 3 times a day as needed (DME) pen needle, diabetic 31 gauge x 3/16 needle See Rx Instructions subcut TID Qty: 400 1RF Rx Instructions: check blood sugar four times per a day (DME) lancets 30 gauge misc See Rx Instructions .Route Qty: 100 2RF Rx Instructions: Use to check blood sugar twice daily and when having symptoms of hypo/hyperglycemia gabapentin 300 mg capsule 300 mg PO ONCE Qty: 90 2RF atorvastatin 80 mg tablet 80 mg PO DAILY 90 Days Qty: 90 2RF montelukast 10 mg tablet 10 mg PO DAILY Qty: 90 5RF ipratropium-albuterol 0.5 mg-3 mg(2.5 mg base)/3 mL solution for nebulization 3 ml inhalation QID 30 Days Qty: 320 3RF insulin glargine [Lantus Solostar U-100 Insulin] 100 unit/mL (3 mL) insulin pen See Rx Instructions subcut .COMPLEX Qty: 45 1RF Rx Instructions: 15 units in am, 30 units at bedtime each day, subcutaneously; budesonide 0.5 mg/2 mL suspension for nebulization 0.5 mg inhalation BID 30 Days Qty: 120 1RF insulin aspart U-100 [Novolog FlexPen U-100 Insulin] 100 unit/mL (3 mL) insulin pen See Protocol subcut TID Qty: 30 1RF Protocol: Insulin Correction Scale Less than or equal to 110 ---- Give (units): 0 111 to 150 Give (units): 0 151 to 200 Give (units): 2 201 to 250 Give (units): 6 251 to 300 Give (units): 8 301 to 350 Give (units): 10 Greater than 350 Give (units): 12 Call MD if Blood Glucose > : 350 Rx Instructions: Up to 10 units before each meal according to sliding scale lisinopril 10 mg tablet 10 mg PO DAILY 90 Days Qty: 90 3RF (DME) diaper,brief,adult,disposable Misc See Rx Instructions .Route Qty: 200 11RF Rx Instructions: Size large adult pull up briefs Trulicity 1.5 mg/0.5 mL pen injector 1.5 mg subcut QWEEK 30 Days Qty: 2.5 4RF albuterol sulfate 2.5 mg /3 mL (0.083 %) solution for nebulization 2.5 mg inhalation Q4-6H PRN (Reason: shortness of breath or wheezing) Qty: 75 0RF (DME) OneTouch Ultra Test Strip See Rx Instructions .Route Qty: 100 2RF Rx Instructions: Use to check blood sugar 3 times a day as needed (DME) AeroEclipse II Nebulizer Misc See Rx Instructions .ROUTE .MEDSUPPLY Qty: 1 0RF Rx Instructions: As directed hydroxyzine pamoate 25 mg capsule 25 mg PO DAILY trazodone 100 mg tablet 200 mg PO BEDTIME aspirin 81 mg Tablet,Chewable 81 mg PO DAILY cholecalciferol (vitamin D3) 25 mcg (1,000 unit) Capsule 25 mcg PO DAILY citalopram 10 mg tablet 20 mg PO DAILY albuterol sulfate [ProAir HFA] 90 mcg/actuation HFA aerosol inhaler 2 puff inhalation Q4H PRN (Reason: shortness of breath or wheezing) ropinirole 2 mg tablet 2 mg PO BID gabapentin 300 mg capsule 900 mg PO BEDTIME benzonatate 100 mg capsule 100 mg PO TID PRN (Reason: cough) Qty: 14 0RF prednisone 20 mg tablet 40 mg PO DAILY 5 Days Qty: 10 0RF bupropion HCl 150 mg tablet extended release 24 hr 150 mg PO DAILY (DME) oxygen-air delivery systems Device See Rx Instructions .ROUTE .MEDSUPPLY Qty: 1 Rx Instructions: As directed amlodipine 5 mg tablet 5 mg PO DAILY Interventions: ED Discharge Assessment Last Done: 12/24/24 01:48 Discharge Date/Time: 12/24/24 02:00 Print Language: [place]
[2024-12-24] MEDS: Insulin Regular, Human 100 UNIT/ML 10 ML VIAL 16 UNIT SUBCUT (00:55)
[2024-12-24 01:36] LABS: Glucose, Whole Blood 473 mg/dL (60-115)
[2024-12-24] MEDS: Insulin Regular, Human 100 UNIT/ML 10 ML VIAL 10 UNIT SUBCUT (01:43)
[2024-12-24 01:48] VITALS: BP 138/68; PULSE 98; RESP 22; TEMP 36.4; O2SAT 97
== END 2024-12-24 02:00 | disposition home or self-care (01) ==
PROVIDERS: Emergency Provider Emergency Medicine
DX: E11.65 Type 2 diabetes mellitus with hyperglycemia (principal); N39.0 Urinary tract infection, site not specified; Z79.4 Long term (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 insulin; Z79.85 Long-term (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 injectable non-insulin antidiabetic drugs
CPT/HCPCS: 36415; 80053; 82947; 85025; 99283; 99284

== ENCOUNTER 2025-01-09 10:15 | Outpatient (AMB) | payer OTHER, SELFPAY ==
[2025-01-09 10:44] VITALS: BP 114/60; PULSE 82; TEMP 36.3; O2SAT 99; BMI 32.1
--- NOTE | 2025-01-09 10:44 | AM.OFFWIN_ITS ---
Intake Vital Signs 01/09/25 10:44 Height 5 ft 8 in Weight 211 lb BMI 32.1 BP 114/60 Blood Pressure Location Lt brachial Position Sitting Pulse 82 Temp 97.3 F Temp Source Oral Pulse Oximetry (%) 99 Oxygen Delivery Method Nasal Cannula Oxygen Flow Rate 2 Intake Visit Reasons: EP-?uti Intake Note: Patient states finished antibiotic and feels like UTI has worsened Patient Tobacco Use Status: Never used Tobacco Title Inspector Required: No Allergies adhesive tape (ADHESIVE TAPE) Allergy (Intermediate, Verified 01/09/25 10:57) RASH trimethobenzamide (From TIGAN) Allergy (Mild, Verified 01/09/25 10:57) NAUSEA NSAIDS (Non-Steroidal Anti-Inflamma Adverse Reaction (Mild, Verified 01/09/25 10:57) Nephropathy environmental Allergy (Intermediate, Uncoded 12/23/24 22:48) Nasal congestion Do you need a note to return to daycare/school/sports/work: No HPI HPI Comments History of Present Illness Details 74 y/o Female patient who presents to [facility] walk in clinic with c/o ??UTI symptoms. Pt c/o Lower abdominal pain and discomfort. She was recently admitted at [facility] for COPD exacerbation and Urinary tract infection 12/23 and 12/24. She was treated with Abx and completed the course. H/o Constipation and takes Colace - she has not had a bowel movement in 2 days, last took Colace 2 days ago. [facility] Medical History Exercise hypoxemia Recurrent UTI COPD (chronic obstructive pulmonary disease) Uncontrolled diabetes mellitus Depression, major, recurrent Dysuria Kidney stone on left side Diabetes 1.5, managed as type 1 COPD (chronic obstructive pulmonary disease) Respiratory failure with hypoxia Urinary tract infection Hypoxemia Morbid obesity CKD (chronic kidney disease) Anemia COPD exacerbation Allergic rhinitis ALDO (obstructive sleep apnea) Obesity (BMI 30-39.9) Constipation due to opioid therapy Osteoarthritis of left knee Hx SBO Hyperlipidemia CPAP (continuous positive airway pressure) dependence History of adrenal adenoma Osteochondroma of left femur Arthritis Diabetes Elevated cholesterol History of restless legs syndrome History of diverticulitis GERD (gastroesophageal reflux disease) Surgical History H/O excision of mass History of oophorectomy History of cholecystectomy History of appendectomy History of arthroscopy of left knee History of partial colectomy Hx of cataract extraction H/O exploratory laparotomy H/O colonoscopy History of surgery History of hysterectomy Family History Father HTN (hypertension) Diabetes mellitus Mother HTN (hypertension) Liver cancer Social History 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: Other 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 Other:: ex- has been staying over Housing: House Are you a primary patient care provider to a significant other at home: No Do you presently have visiting nurse or other home services: Yes Unable to assess alcohol history related to: Unknown Alcohol intake: never Comment: PT SLEEPING Patient Tobacco Use Status: Never used Tobacco e-Cigarette/Vaping Use: Never Used Second Hand Smoke Exposure: No Advance Directives Date on File: 10/22/23 service: No Current occupational status: retired Cognitive needs: No Hearing needs: No Vision needs: No Female Reproductive History Menstrual Age of Menarche: 13 Review of Systems Const All systems reviewed & are unremarkable except as noted in HPI and below Physical Exam Vital Signs: Last Vital Signs Temp 97.3 F 01/09/25 10:44 Pulse 82 01/09/25 10:44 BP 114/60 01/09/25 10:44 Pulse Ox 99 01/09/25 10:44 Oxygen Delivery Method Nasal Cannula 01/09/25 10:44 Oxygen Flow Rate 2 01/09/25 10:44 BMI result Body Mass Index 32.1 Const General: no acute distress Nutritional Appearance: obese Orientation/consciousness: patient oriented x3 Limitations: wheelchair GI Inspection: Yes Abdominal panniculus present Palpation (GI): Soft to palpation, not firm, Tenderness to palpation present (GI) periumbilically and suprapubicly, no guarding and not rigid Auscultation: normal bowel sounds General: Yes no CVA tenderness Back/Spine/Pelvis Back: no CVA tenderness Neuro General: patient oriented x3 Results AMB Urinalysis, Automated UA Leukoctes 0 Peng/uL Last Edit by Liz Kowalski CMA on 01/09/25 10:59 UA Nitrite Negative Last Edit by Liz Kowalski CMA on 01/09/25 10:59 UA Urobilinogen 0.2 mg/dL Last Edit by Liz Kowalski CMA on 01/09/25 10:59 UA Protein 0 mg/dL Last Edit by Liz Kowalski, ROSALINE on 01/09/25 10:59 UA pH 6.0 Last Edit by Liz Kowalski, ROSALINE on 01/09/25 10:59 UA Blood 0 Tim/uL Last Edit by Liz Kowalski, ROSALINE on 01/09/25 10:59 UA Specific [place] 1.025 Last Edit by Liz Kowalski, ROSALINE on 01/09/25 10:59 UA Ketone Negative Last Edit by Liz Kowalski, ROSALINE on 01/09/25 10:59 UA Bilirubin 0 mg/dL Last Edit by Liz Kowalski, ROSALINE on 01/09/25 10:59 UA Glucose 0 mg/dL Last Edit by Liz Kowalski, ROSALINE on 01/09/25 10:59 Results Reviewed Results Reviewed: Laboratory Last Values Urine pH (Auto) 6.0 01/09/25 10:58 Specific [place] (Auto) 1.025 01/09/25 10:58 Urine Protein (Auto) 0 mg/dL 01/09/25 10:58 Glucose (UA)(Auto) 0 mg/dL 01/09/25 10:58 Urine Ketones (Auto) Negative 01/09/25 10:58 Urine Blood (Auto) 0 Tim/uL 01/09/25 10:58 Urine Nitrite (Auto) Negative 01/09/25 10:58 Urine Bilirubin (Auto) 0 mg/dL 01/09/25 10:58 Urine Urobilinogen (Auto) 0.2 mg/dL 01/09/25 10:58 Leukocyte Esterase (Auto) 0 Peng/uL 01/09/25 10:58 Assessment & Plan Assessment & Plan (1) Abdominal pain: Code(s): R10.9 - Unspecified abdominal pain Qualifiers: Abdominal location: upper abdomen, unspecified Qualified Code(s): R10.10 - Upper abdominal pain, unspecified Plan: DDx's: Constipation vs GERD vs BV vs Macie (due to recent Abx use). Pt denies Vaginal symptoms. Advised to take her Colace. Urinalysis negative. Orders: Orders AMB Urinalysis Automated Today Z13.9 - Encounter for screening, unspecified Coding Level of Care Code Est Pt Level 4 (78551) Diagnoses Pain of upper abdomen R10.10 Abdominal location: upper abdomen, unspecified Time Spent (min) 20
--- OUTSIDE RECORDS SUMMARY | 2025-01-09 10:53 | XMS_ITS | Patient Health Record ---
Author Organization [facility] Address [address] [place] [address] Care Team Providers Care Mortgage Consultant Name Role Phone José Manuel Bowman MD Primary Care Provider UnavailEllis Bernabe Unavailable [phone] Wallace Graham MD Unavailable Unavailable Allergies Allergen (clinical drug ingredient) Drug/Non Drug Allergy documented on EMR Reaction Allergy Type Onset Date Status trimethobenzamide Tigan Unknown Drug Allergy Active Reason For Referral No Information Problems Problem Type SNOMED Code ICD Code Onset Dates Problem Status W/U Status Risk Notes Problem Ulcerative colitis (53691449) Ulcerative colitis (K51.90) Active confirmed Plan Of Treatment No Information Insurance Providers Payer Name Payer Address Payer Phone Subscriber Number Group Number Insured Name Patient Relationship to Insured Coverage Start Date Coverage End Date MEDICARE OF [place] [address] [place] [id number] DESMOND BROOKE Self - patient is the insured MEDICAID OF [facility] [address] [place] [address] [id number] DESMOND BROOKE Self - patient is the insured Medical (General) History Medical History History ICD Code colonoscopy 11-09-2006 gerd Surgical History Surgery Date(Month/Year) cholecystectomy hysterectomy with oophorectomy D&C and tubal ligation
== END 2025-01-09 11:17 | disposition home or self-care (01) ==
PROVIDERS: PCP Internal Medicine; Visit Provider Nurse Practitioner Family
DX: R10.10 Upper abdominal pain, unspecified (principal); Z13.9 Encounter for screening, unspecified

== ENCOUNTER → 2025-01-09 10:15 | Outpatient (BNVA) | payer OTHER, SELFPAY | PROVIDERS: PCP Internal Medicine; Visit Provider Nurse Practitioner Family | DX: R10.10 Upper abdominal pain, unspecified (principal) | CPT/HCPCS: 81003; 99212 ==

== ENCOUNTER 2025-01-27 13:51 | Outpatient (AMB) | payer OTHER, SELFPAY ==
--- OUTSIDE RECORDS SUMMARY | 2024-05-06 05:00 | XMS_ITS ---
[facility] Address [address] [place] [address] Care Team Providers Care Cardboard Cutter Name Role Phone Chris BROWNE, Shelbi Primary Care Provider UnavailNik Haynes Unavailable [phone] Encounters Encounter Location Date Provider Diagnosis [address] [address] 05/06/2024 Nik Hernandez Plan Of Treatment Next Appt Details Provider Name:Nik Hernandez , 02/21/2025 09:30:00 AM, [address] [place] [address], [phone], Progress Notes * MENDYMatthewleeeDOB:1950 ( 75 yo F)Acc No.[id number]:05/06/2024 Progress Note Patient: Mine MISM Provider: Nicolás Hernandez DPM :1950 A ge:74 Y S ex:Female Date:05/06/2024 Address:[address] [place] [address] Pcp:Shelbi Perez MD Subjective: * Chief Complaints: [...] 1 Generated for Judah locke/Wendy/Kyle on: 0 01/27/2025 01:55 PM EDT
--- NOTE | 2025-01-27 13:53 | A.OFFPC_ITS ---
Vital Signs 01/27/25 13:57 Height 5 ft 8 in BMI Reason not done Patient refused/unable BP 150/76 H Blood Pressure Location Rt brachial Position Sitting Pulse 94 Pulse Source Pulse Oximeter Pulse Oximetry (%) 92 Oxygen Delivery Method Room Air Intake Visit Reasons: Swollen Crime Laboratory Analyst Required: No Allergies adhesive tape (ADHESIVE TAPE) Allergy (Intermediate, Verified 01/27/25 13:57) RASH trimethobenzamide (From TIGAN) Allergy (Mild, Verified 01/27/25 13:57) NAUSEA NSAIDS (Non-Steroidal Anti-Inflamma Adverse Reaction (Mild, Verified 01/27/25 13:57) Nephropathy environmental Allergy (Intermediate, Uncoded 12/23/24 22:48) Nasal congestion Medication List - Last Reconciled 01/27/25 by Shelbi Perez MD albuterol sulfate 90 mcg/actuation (ProAir HFA) 2 puffs inhalation Q4H PRN albuterol sulfate 2.5 mg (3 mL) inhalation Q4-6H PRN amlodipine 5 mg PO DAILY aspirin 81 mg PO DAILY atorvastatin 80 mg PO DAILY 90 days blood sugar diagnostic (FreeStyle Lite Strips) Use to check blood sugar 3 times a day as needed blood sugar diagnostic (OneTouch Ultra Test strips) Use to check blood sugar 3 times a day as needed blood-glucose meter (Luminate HealthTouch Ultra2 Meter) Use to check blood sugar twice daily and when having symptoms of hypo/hyperglycemia budesonide 0.5 mg (2 mL) inhalation BID 30 days bupropion HCl XL 150 mg PO DAILY cholecalciferol (vitamin D3) 25 mcg PO DAILY citalopram 20 mg PO DAILY diaper,brief,adult,disposable Use for stress incontinence diaper,brief,adult,disposable Size large adult pull up briefs dulaglutide (Trulicity) 1.5 mg (0.5 mL) subcut QWEEK 30 days gabapentin 900 mg PO BEDTIME gabapentin 300 mg PO ONCE hydroxyzine pamoate 25 mg PO DAILY insulin aspart U-100 (Novolog FlexPen U-100 Insulin aspart) See Protocol sliding scale doses subcut TID ipratropium-albuterol 0.5 mg-3 mg(2.5 mg base)/3 mL 3 mL inhalation QID 30 days lancets once a day lancets Use to check blood sugar twice daily and when having symptoms of hypo/hyperglycemia lisinopril 10 mg PO DAILY 90 days montelukast 10 mg PO DAILY nebulizers (AeroEclipse II Nebulizer) As directed oxygen-air delivery systems As directed pen needle, diabetic (BD Ultra-Fine Mini Pen Needle) Use to administer insulin twice daily pen needle, diabetic check blood sugar four times per a day ropinirole 2 mg PO BID Shower Chair Shower chair with back and arm rests trazodone 200 mg PO BEDTIME walker Wheeled walker with seat and brakes Tobacco use date assessed: 07/26/24 Fall risk assessment: No Falls in past year Last assessed Fall Risk: 01/27/25 Dental Screening Dental Screen Date: 07/26/24 HPI Swollen HPI Details History - The patient is a 75-year-old female pr esenting with generalized swelling and difficulty with breathing. She came in today with her son who is personal brass cleaner and visiting nurse - Swelling has been present for approxim ately two weeks, causing discomfort. - The patient reports breathing difficul ties that have also persisted for about two weeks, indicating an exacerbation of previous respiratory issues. - A history of chronic obstructive pulmo nary disease (COPD) exacerbation was noted, recently treated with prednisone for breathing and antibiotics for a urinary tract infection. - The patient reports variable blood sug ar levels, with a reading of 170 mg/dL fasting and a recent reading of 94 mg/dL. - Blood pressure readings have been cons istently elevated, noted at 150/76 mmHg and previously at 182/78 mmHg. - The latest laboratory results indicate worsening renal function, with serum creatinine increasing from 1.58 to 1.79 mg/dL since July, and an estimated glomerular filtration rate (eGFR) of 28 mL/min/1.73m? indicating declining kidney function. - Liver enzymes are reported to be withi n normal limits. - The patient experienced a urinary trac t infection that contributed to a COPD exacerbation and was treated in December 2022. - Complaints of new skin sores were note d, with the midline sore being present for over a month and worsening, while another sore was newly observed. - Patient had a past history of hospital ization in December for the aforementioned COPD exacerbation and urinary tract infection. Medical History: - Chronic obstructive pulmonary disease (COPD) - Hypertension - Diabetes mellitus - Chronic kidney disease, worsening - History of urinary tract infections - Cataracts, stable as per recent ophtha lmology exam Medications - Amlodipine 5 mg for hypertension - Lisinopril 10 mg for hypertension - Prednisone (recent course for COPD exa cerbation) - Trulicity 1.5 mg for diabetes - Novolog insulin, 10 units before meals for diabetes management Problem List - Generalized swelling - Difficulty breathing - Chronic Obstructive Pulmonary Disease (COPD) Exacerbation - Hypertension - Diabetes Mellitus - Chronic Kidney Disease - Urinary Tract Infection (recent) - Skin sores Diagnostic results - Labs: - Hemoglobin: 11.4 g/dL - Hematocrit: 34.9% - Serum creatinine: 1.79 mg/dL (increase d from 1.58 mg/dL) - Sodium: 134 mEq/L (slightly low) - eGFR: 28 mL/min/1.73m? - Tests and diagnostics: - Liver functio n tests normal as per conversation [facility] - Compound Mixer, Dr. Rebecca Green, for chronic kidney disease management - Previous hospitalization for COPD exac erbation and urinary tract infection - Embossing Press Operator Apprentice for eye examination, w ith findings of stable cataracts - internal communications specialist Patient Instructions - Increase Lisinopril to 20 mg for blood pressure management. - Begin Lantus, starting with 20 units a t night; monitor blood sugar; increase to 30 units if necessary. - Start diuretic (Lasix) every other day for swelling but only for a short period. - Continue monitoring blood pressure and blood sugar levels. - Maintain hygiene for skin sores and ap ply Bactroban. - Schedule an appointment with a nephrol ogist. - Weigh daily to assess fluid changes. - Follow low sodium diet and control car bohydrate intake to manage diabetes. Review of Systems General: No fever no chills neurological: No headaches no dizziness ear nose throat: No sore throat no hearing difficulty no ear pain cardiovascular: No syncope, no chest pain, no palpitations gastrointestinal: No nausea vomiting or diarrhea endocrine: No polyuria polydipsia no heat intolerance skin: No new complaints Physical Exam general: No acute distress HEENT: No acute findings neck: Supple respiratory system: Lungs are clear, no audible wheeze, no stridor cardiovascular: S1-S2 RRR gastrointestinal: Abdomen with a couple of sores, not infected/patient keep on picking on them extremities: Slight swelling nonpitting ankle, possible lymphedema BOILER ERECTOR: Alert awake oriented x3 motor intact skin: Normal turgor, sores present, not infected but need monitoring [facility] Medical History Exercise hypoxemia Recurrent UTI COPD (chronic obstructive pulmonary disease) Uncontrolled diabetes mellitus Depression, major, recurrent Dysuria Kidney stone on left side Diabetes 1.5, managed as type 1 COPD (chronic obstructive pulmonary disease) Respiratory failure with hypoxia Urinary tract infection Hypoxemia Morbid obesity CKD (chronic kidney disease) Anemia COPD exacerbation Allergic rhinitis ALDO (obstructive sleep apnea) Obesity (BMI 30-39.9) Constipation due to opioid therapy Osteoarthritis of left knee Hx SBO Hyperlipidemia CPAP (continuous positive airway pressure) dependence History of adrenal adenoma Osteochondroma of left femur Arthritis Diabetes Elevated cholesterol History of restless legs syndrome History of diverticulitis GERD (gastroesophageal reflux disease) Surgical History H/O excision of mass History of oophorectomy History of cholecystectomy History of appendectomy History of arthroscopy of left knee History of partial colectomy Hx of cataract extraction H/O exploratory laparotomy H/O colonoscopy History of surgery History of hysterectomy Family History Father HTN (hypertension) Diabetes mellitus Mother HTN (hypertension) Liver cancer Social History 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: Other 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 Other:: ex- has been staying over Housing: House Are you a primary career guidance technician to a significant other at home: No Do you presently have visiting nurse or other home services: Yes Unable to assess alcohol history related to: Unknown Alcohol intake: never Comment: PT SLEEPING Patient Tobacco Use Status: Never used Tobacco e-Cigarette/Vaping Use: Never Used Second Hand Smoke Exposure: No Advance Directives Date on File: 10/22/23 service: No Current occupational status: retired Cognitive needs: No Hearing needs: No Vision needs: No Female Reproductive History Menstrual Age of Menarche: 13 Questionnaire Thrive Questionnaire Date Thrive assessed: 07/26/24 Within the past 12 months, did the food you bought not last and you didn't have the money to get more?: I choose not to answer this question Within the past 12 months, did you worry whether your food would run out before you got money to buy more?: I choose not to answer this question Do you have trouble paying for medicines?: No Do you have trouble getting transportation to medical appointments?: No Do you have trouble paying your heating and electricity bill?: No Do you have trouble taking care of your child, family member or friend?: No Do you have trouble with day-to-day activities such as bathing, preparing meals, shopping, managing finances, etc.?: No Are you currently unemployed and looking for a job?: No Are you interested in more education?: No Please select the resources that you would like help with: None Currently or been in a relationship where the following occur: I choose not to answer THRIVE Score: 0 AUDIT C Alcohol Use Questionnaire (AUDIT-C) 1. How often do you have a drink containing alcohol?: Never 3. How often do you have six or more drinks on one occasion?: Never Total Score: 0 Score Reviewed/Action Taken: Yes RACHNA-7 AMB Questionnaire RACHNA-7 Date RACHNA - 7 assessed: 01/27/25 Feeling nervous, anxious, or on edge: 2 = More than half the days Not being able to stop or control worryin = More than half the days Worrying too much about different things: 0 = Not at all Trouble relaxin = Not at all Being so restless that it is hard to sit still: 0 = Not at all Becoming easily annoyed or irritable: 0 = Not at all Feeling afraid as if something awful might happen: 0 = Not at all Total RACHNA-7 score (0-4 normal; 5-9 mild; 10-14 moderate; 15-21 severe): 4 Source: Developed by Drs. Ellis Child, Nimo Castillo, Miguel East and colleagues, with an educational miki from [employer]. RACHNA-7 Assessment Billing RACHNA-7 Assessment Tool: RACHNA-7 Assessment 60533 Physical exam (Primary Care) Vital Signs: Last Vital Signs Pulse 94 01/27/25 13:57 BP 150/76 H 01/27/25 13:57 Pulse Ox 92 01/27/25 13:57 Oxygen Delivery Method Room Air 01/27/25 13:57 Tobacco/Smoking Status: Tobacco use Status Tobacco use date assessed 07/26/24 01/27/25 13:55 Patient Tobacco Use Status Never used Tobacco 01/27/25 13:55 e-Cigarette/Vaping Use Never Used 01/27/25 13:55 Thrive Assessment: Date of Thrive Assessment Date Thrive assessed 07/26/24 01/27/25 13:55 Currently or been in a relationship where the following occur: I choose not to answer Coding Level of Care Code Est Pt Level 5 (73318) Diagnoses Mixed stress and urge urinary incontinence N39.46 Urinary Incontinence type: mixed stress and urge incontinence Insulin dependent diabetes mellitus type IA E10.9 Lipid disorder E78.9 [facility] (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 insulin Z79.4 Anemia due to stage 3a chronic kidney disease N18.31; D63.1 Anemia type: due to chronic kidney disease Chronic kidney disease stage: stage 3 (moderate) Chronic kidney disease stage 3 subtype: stage 3a (GFR 45-59) Diabetic neuropathy, painful E11.40 Chronic GERD K21.9 Restless leg syndrome G25.81 Environmental allergies Z91.09 Anxiety, generalized F41.1 Restrictive airway disease J98.4 Non-seasonal allergic rhinitis due to other allergic trigger J30.89 Allergic rhinitis seasonality: non-seasonal Allergic rhinitis trigger: other Elevated serum creatinine R79.89 Supplemental oxygen dependent Z99.81 Additional Codes RACHNA-7 Assessment Billing - RACHNA-7 Assessment Tool: RACHNA-7 Assessment 81061 ([id number]) Time Spent (min) 40 Comment Reviewing chart/labs/[id number] with patient, son, visiting nurse, coordination of care Assessment & Plan Assessment & Plan (1) Urine incontinence: Code(s): R32 - Unspecified urinary incontinence Category: Medical Qualifiers: Urinary Incontinence type: mixed stress and urge incontinence Qualified Code(s): N39.46 - Mixed incontinence (2) Insulin dependent diabetes mellitus type IA: Code(s): E10.9 - Type 1 diabetes mellitus without complications Category: Medical (3) Lipid disorder: Code(s): E78.9 - Disorder of lipoprotein metabolism, unspecified Category: Medical (4) director long term care (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 insulin: Code(s): Z79.4 - director long term care (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 insulin Category: Medical (5) Anemia: Code(s): D64.9 - Anemia, unspecified Category: Medical Qualifiers: Anemia type: due to chronic kidney disease Chronic kidney disease stage: stage 3 (moderate) Chronic kidney disease stage 3 subtype: stage 3a (GFR 45-59) Qualified Code(s): N18.31 - Chronic kidney disease, stage 3a; D63.1 - Anemia in chronic kidney disease (6) Diabetic neuropathy, painful: Code(s): E11.40 - Type 2 diabetes mellitus with diabetic neuropathy, unspecified Category: Medical (7) Chronic GERD: Code(s): K21.9 - Gastro-esophageal reflux disease without esophagitis Category: Medical (8) Restless leg syndrome: Code(s): G25.81 - Restless legs syndrome Category: Medical (9) Environmental allergies: Code(s): Z91.09 - Other allergy status, other than to drugs and biological substances Category: Medical (10) Anxiety, generalized: Code(s): F41.1 - Generalized anxiety disorder Category: Medical (11) Restrictive airway disease: Comment: Patient has restrictive lung disorder related to obesity. Lilia has moderately severe restrictive pulmonary disorder mainly due to her obesity. Code(s): J98.4 - Other disorders of lung Category: Medical (12) Allergic rhinitis: Comment: Mild, and AND SEEMS TO BE FAIRLY WELL CONTROLLED AT THIS TIME. Code(s): J30.9 - Allergic rhinitis, unspecified Category: Medical Qualifiers: Allergic rhinitis seasonality: non-seasonal Allergic rhinitis trigger: other Qualified Code(s): J30.89 - Other allergic rhinitis (13) Elevated serum creatinine: Code(s): R79.89 - Other specified abnormal findings of blood chemistry Category: Medical (14) Supplemental oxygen dependent: Code(s): Z99.81 - Dependence on supplemental oxygen Category: Medical Plan History - The patient is a 75-year-old female with a history of urine incontinence recurrent UTIs insulin-dependent diabetes mellitus lipid disorder long-term use of insulin, anemia, diabetic neuropathy painful, diabetic nephropathy , chronic GERD, restless leg, environmental allergies, anxiety, COPD, supplemental oxygen dependent, noncompliance with diet, presenting with generalized swelling and difficulty with breathing. She came in today with her son who is personal brass cleaner and visiting nurse - Swelling has been present for approximately two weeks, causing discomfort. - The patient reports breathing difficulties that have also persisted for about two weeks, indicating an exacerbation of previous respiratory issues. - A history of chronic obstructive pulmonary disease (COPD) exacerbation was noted, recently treated with prednisone for breathing and antibiotics for a urinary tract infection. - The patient reports variable blood sugar levels, with a reading of 170 mg/dL fasting and a recent reading of 94 mg/dL. - Blood pressure readings have been consistently elevated, noted at 150/76 mmHg and previously at 182/78 mmHg. - The latest laboratory results indicate worsening renal function, with serum creatinine increasing from 1.58 to 1.79 mg/dL since July, and an estimated glomerular filtration rate (eGFR) of 28 mL/min/1.73m? indicating declining kidney function. - Liver enzymes are reported to be within normal limits. - The patient experienced a urinary tract infection that contributed to a COPD exacerbation and was treated in December 2022. - Complaints of new skin sores were noted, with the midline sore being present for over a month and worsening, while another sore was newly observed. - Patient had a past history of hospitalization in December for the aforementioned COPD exacerbation and urinary tract infection. Medical History: - Chronic obstructive pulmonary disease (COPD) - Hypertension - Diabetes mellitus - Chronic kidney disease, worsening - History of urinary tract infections - Cataracts, stable as per recent ophthalmology exam Medications - Amlodipine 5 mg for hypertension - Lisinopril 10 mg for hypertension - Prednisone (recent course for COPD exacerbation) - Trulicity 1.5 mg for diabetes - Novolog insulin, 10 units before meals for diabetes management Problem List - Generalized swelling - Difficulty breathing - Chronic Obstructive Pulmonary Disease (COPD) Exacerbation - Hypertension - Diabetes Mellitus - Chronic Kidney Disease - Urinary Tract Infection (recent) - Skin sores Diagnostic results - Labs: - Hemoglobin: 11.4 g/dL - Hematocrit: 34.9% - Serum creatinine: 1.79 mg/dL (increased from 1.58 mg/dL) - Sodium: 134 mEq/L (slightly low) - eGFR: 28 mL/min/1.73m? - Tests and diagnostics: - Liver function tests normal as per conversation [facility] - Compound Mixer, Dr. Rebecca Green, for chronic kidney disease management - Previous hospitalization for COPD exacerbation and urinary tract infection - Embossing Press Operator Apprentice for eye examination, with findings of stable cataracts - internal communications specialist Patient Instructions - Increase Lisinopril to 20 mg for blood pressure management. - Begin Lantus, starting with 20 units at night; monitor blood sugar; increase to 30 units if necessary. - Start diuretic (Lasix) every other day for swelling but only for a short period. - Continue monitoring blood pressure and blood sugar levels. - Maintain hygiene for skin sores and apply Bactroban. - Schedule an appointment with a shrimp boat captain. - Weigh daily to assess fluid changes. - Follow low sodium diet and control carbohydrate intake to manage diabetes. Orders: Orders Microalbumin, Random (w Creat) Today N39.46 - Mixed incontinence Medications: New furosemide (Lasix) 20 mg PO Q OTHER DAY 10 tabs 0RF 20 days insulin glargine (Lantus U-100 Insulin) 20 units (0.2 mL) subcut DAILY 18 mL 0RF 90 days Changed From lisinopril 10 mg PO DAILY 90 days 90 tabs 3RF To lisinopril 20 mg PO DAILY 90 tabs 3RF 90 days
--- OUTSIDE RECORDS SUMMARY | 2025-01-27 13:54 | XMS_ITS | Encounter Summary ---
Author Organization [facility] Address [address] [place] [address] Care Team Providers Care Federal Mediator Name Role Phone Delaney Sherman MD Primary Care Provider Encounter Details Date Type Department Care Team (Latest Contact Info) Description 06/14/2024 Lab Requisition [facility] - Main Lab [address] [place] [address] Delaney Sherman MD [address] [place] [id number] intermediate designer (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 insulin (CMS/HCC V24, CMS/HCC [...] HEMOGLOBIN A1C Routine 06/14/2024 4:50 AM EST [facility] (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 insulin (CMS/[facility]) Type 2 diabetes mellitus without complications (CMS/[facility]) documented in this encounter Results * (ABNORMAL) Hemoglobin A1c (06/14/2024 4:50 AM EST) Hemoglobin A1C 6.5(H) <6.5 % LAB CHEMISTRY METHOD 06/14/2024 12:36 PM EST [facility] Mean Bld Glu Estim. 140 mg/dL LAB CHEMISTRY METHOD 06/14/2024 12:36 PM EST [facility] Blood Venous blood specimen / Unknown Venipuncture / Unknown 06/14/2024 4:50 AM EST 06/14/2024 8:48 AM EST Delaney Sherman MD LAB BLOOD ORDERABLES Final Resu lt [facility] ([facility] [address] [place] [address], documented in this encounter Visit Diagnoses Diagnosis intermediate designer (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 insulin (CMS/HCC V24, CMS/[facility] V28) Type 2 diabetes mellitus without complications (CMS/HCC V24, CMS/HCC V28) documented in this encounter Care Teams Federal Mediator Relationship Specialty Start Date End Date Delaney Sherman MD [address] [place] [id number] PCP - General Hospitalist Medicine 06/14/24 documented as of this encounter
--- OUTSIDE RECORDS SUMMARY | 2025-01-27 13:54 | XMS_ITS | Patient Health Record ---
[facility] Address [address] [place] [address] Care Team Providers Care Rn Clinical Coordinator Name Role Phone José Manuel Bowman MD Primary Care Provider UnavailEllis Bernabe Unavailable [phone] Gladys BROWNE, Wallace Unavailable Unavailable Allergies Allergen [...] OF [place] [address] [place] [address] [id number] DESMOND BROOKE Self - patient is the insured MEDICAID OF [facility] [address] [place] [address] [id number] SWATI BROOKEE Self - patient is the insured Medical (General) History Medical History History ICD Code colonoscopy 11-09-2006 gerd Surgical History Surgery Date(Month/Year) cholecystectomy hysterectomy with oophorectomy D&C and tubal ligation
--- OUTSIDE RECORDS SUMMARY | 2025-01-27 13:55 | XMS_ITS ---
Author Name Vicente Zhao Address [address] [place] [id number] Phone [phone] Organization [facility] Care Team Providers Care Basket Operator Name Role Phone Cristin Ogden Unavailable [phone] Reason for Referral Not Available Allergies, adverse [...] Data Available BD UF MINI PEN NEEDLE [id number] USE TO ADM INISTER INSULIN TWICE DAILY [...] mg Cap TAKE 1 CAPSULE BY MO UTH 2 TIMES A DAY FOR 7 DAYS 2023-01-28 No Data Available BD UF MINI PEN NEEDLE [id number] USE TO ADM INISTER INSULIN TWICE DAILY 2022-10-14 No Data Available rOPINIRole 2 mg Tab No Data Available 2023-03-30 No Data Available Problem List Problem Status Onset Date Resolved Date Synopsis Morbid obesity due to excess calories Active 2023-03-30 N/A SuspectedBMI:Dis cussed lifestyle interventions and continue f/u care with PCP. Major depressive disorder, recurrent, mild Active 2023-03-30 N/A SuspectedWellbut rin, Vistaril, denies SI/HIContinue taking medications, coping mechanisms reviewed, and continue f/u care and monitoring with PCP. H/O respiratory failure; Chronic obstructive pulmonary disease, unspecified Active 2023-03-30 N/A SuspectedBreo-El lipta, MontelukastContinue taking medications, monitor for s/sx of respiratory distress and continue f/u care with PCP. Type 2 diabetes mellitus with complications: HLD, diabetic neuropathy, CKD stage 4 Active 2023-03-30 N/A SuspectedAtorvas tatin, Gabapentin, Insulin Lispro, Levemirmost recent a1c:07/10/22 CKD, eGFR: 15 mL/min Continue taking medications, low carb diet, exercise as tolerable, monitor BF routinely, monitor BLE routinely and BLE daily care, monitor for acute BLE swelling, monitor for acute flank pain and continue f/u care with PCP. Inflammatory bowel disease Active 2023-03-30 N/A SuspectedContinu e f/u care and monitoring with PCP and gastroenterology History of diverticulitis Active 2023-03-30 N/A SuspectedAmlodip ine, LisinoprilContinue taking medications, low salt diet, monitor BP routinely and continue f/u care with PCP. Polymyalgia rheumatica Active 2023-03-30 N/A Cox spectedContinue f/u care with rheumatology Restless legs syndrome Active 2023-03-30 N/A Cox spectedPramipexole, RopiniroleContinue taking medications, using assistive devices, fall risk precautions and continue f/u care with PCP. Social History Sex Female Functional Status Functional Category Effective Dates PRECIPITATOR OPERATOR assists with cooking, cl eaning, laundry, showering and dressing. Pt reports using assistive device of: 2023-03-30 Mental Status Status Date AOx 2023-03-30 Assessments Not Available Plan of Care Not Available
--- OUTSIDE RECORDS SUMMARY | 2025-01-27 13:55 | XMS_ITS | Patient Health Record ---
Author Organization [facility] liance Address [address] [place] [address] Care Team Providers Care Passenger Tire Inspector Name Role Phone ChrisShelbi Primary Care Provider Unavailabl e Rajwinder Johns Unavailable [phone] Clinical, Operations Unavailable Unavailable Allergies No Known Allergies Results Component Value Reference Range Notes Urinalysis, Complete-[id number] Reviewed date:04/05/2024 01:13:47 PM Interpretation: Performing Lab:[facility], [address] [facility], Phone - [phone], Director - Deb Notes/Report: Clinical Information:SRC:UC SRC: Clinical Information:SRC: SRC: Specific Finley 1.010 1.005-1.030 pH 7.5 5.0-7.5 Urine-Color Yellow [...] Bacteria None seen None seen/Few Urine Culture, Routine-[id number] Reviewed date:04/06/2024 12:04:52 PM Interpretation: Performing Lab:[facility] [place], [address], [address], [place], Phone - [phone], Director - Terry Notes/Report: Clinical Information:SRC:UC SRC:UC Clinical Information:SRC:UC SRC:UC Urine Culture, Routine Final report Result 1 Mixed urogenital rhina 50,000-100,000 colony forming units per mL Reason For Referral No Information Medications Medication SIG (Take, Route, Frequency, Duration) Notes Start Date End Date Status Lisinopril 10 MG 1 tablet Orally Once a day Active Lantus SoloStar 100 UNIT/ML 30 units as directed Subcutaneous daily Not-Taking Aspirin 81 MG 1 tablet Orally Once a day for 90 days Active rOPINIRole HCl 2 MG 1 tablet Orally Twice a day Not-Taking Vitamin D3 125 MCG (5000 UT) 1 capsule Orally Once a day for 90 days Active Atorvastatin Calcium 80 MG 1 tablet Orally Once a day Active Budesonide 2 MG/10ML 10 mL Orally Twice a day bid Dr. Frederick Active Gabapentin 300 MG as directed Orally once a day at HS PCP decreased dose 10/2024 Active hydrOXYzine HCl 25 MG as directed Orally twice a day PRN anxiety Active Insulin Aspart FlexPen 100 UNIT/ML as directed Subcutaneous Sliding scale TID Active Ipratropium-Albuterol 0.5-2.5 (3) MG/3ML 3 mL as needed Inhalation every [address] Frederick Active buPROPion HCl ER (SR) 150 MG 1 tablet in the morning Orally Once a day Active Citalopram Hydrobromide 10 MG 1 tablet Orally Once a day Active [facility] Fluticasone Propionate 50 MCG/ACT 1 spray in each nostril Nasally Twice a day for 30 days Active Dulaglutide 3 MG/0.5ML as directed Subcutaneous weekly Active Loratadine 10 MG 1 tablet Orally Once a day for 30 days Active Montelukast Sodium 10 MG 1 tablet Orally Once a day Active amLODIPine Besylate 5 MG 1 tablet Orally Once a day Member no longer taking Not-Taking Albuterol Sulfate (2.5 MG/3ML) 0.083% 3 mL as needed Inhalation every 6 hrs PRN only Active Cyclobenzaprine HCl 10 MG 1 tablet at bedtime as needed Orally Once a day DC per member Not-Taking Albuterol Sulfate HFA 108 (90 Base) MCG/ACT 1 puff as needed Inhalation every 4 hrs PRN Active Multivitamin - 1 tablet Orally Once a day Active Oxygen Concentrator 2-3 liters 2lPM as needed to maintain 2 sat 88-92% continuous 2L PRN Active traZODone HCl 150 MG 1 tablet at bedtime Orally Once a day Active Tylenol Extra Strength 500 MG 1 tablet as needed Orally every 6 hrs Active Problems Problem Type SNOMED Code ICD Code Onset Dates Problem Status W/U Status Risk Notes Problem 99629184 Vitamin D deficiency, unspecified (E55.9) Active confirmed Problem 21572769 Dysuria (R30.0) Inactive confirmed Problem Type II diabetes mellitus without complication (765270876) Diabetes (E11.9) Inactive confirmed Problem 78268404 ALDO on CPAP (G47.33) Active confirmed Problem Chest pain (57928552) Chest pain (R07.9) Problem resolved confirmed Problem Heart failure (91326311) Heart failure, unspecified (I50.9) Inactive confirmed Problem 655117833 History of falling (Z91.81) Active confirmed Problem Hypertension (48158890) HTN (hypertension) (I10) Inactive confirmed Problem 887665876 COPD exacerbatio n (J44.1) Problem resolved confirmed Problem COPD - Chronic obstructive pulmonary disease (28137278) COPD (chronic obstructive pulmonary disease) (J44.9) Active confirmed Problem Dyspnea (068284612) Dyspnea (R06.00) Inactive confirmed Problem 73481963 Mixed incontinence (N39.46) Active confirmed Problem 01514775 RACHNA (generalized anxiety disorder) (F41.1) Active confirmed Problem Chronic kidney disease (591101688) CKD (chronic kidney disease) (N18.9) Inactive confirmed Problem Polyneuropathy (80581976) Polyneuropathy (G62.9) Inactive confirmed Problem Moderate recurrent major depression (84045984) Major depressive disorder, recurrent episode, moderate (F33.1) Active confirmed Problem 44919567 Polymyalgia rheumatica (M35.3) Active confirmed Problem 05291989 Restless legs syndrome (RLS) (G25.81) Active confirmed Problem 877498897831 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) Active confirmed Problem 64958236 Dementia, unspecified, without behavioral disturbance (F03.90) Active confirmed Problem Chronic respiratory failure (44239980) Chronic respiratory failure with hypoxia (J96.11) Active confirmed Problem 383860153 Recurrent UTI (urinary tract infection) (N39.0) Active confirmed Problem 760831053735827 Unilateral primary osteoarthritis, left knee (M17.12) Active confirmed Problem 99734303 Extrapyramidal disorder (G25.9) Active confirmed Problem 198885809012934 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) Active confirmed Problem Panlobular emphysema (5699153) Panlobular emphysema (J43.1) Active confirmed Problem 9542898 Displaced trimalleolar fracture of right lower leg, subsequent encounter for closed fracture with routine healing (S82.851D) Active confirmed Problem 231625979 Arthritis, low back (M47.819) Active confirmed Problem 38865714 Other chronic pain (G89.29) Active confirmed Problem 986553285 MCC (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 insulin (Z79.4) Active confirmed Problem 093069259 Chronic diastoli c (congestive) heart failure (I50.32) Active confirmed Problem 22629489771339 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 kidney disease, or unspecified chronic kidney disease (I13.0) Active confirmed Problem 412882625 Type 2 diabetes mellitus with diabetic neuropathy, unspecified (E11.40) Active confirmed Problem 486616985 Morbid (severe) obesity due to excess calories (E66.01) Active confirmed Problem 299146873 Skin abrasion (T14.8XXA) Active confirmed Problem 792559303 Uncontrolled typ e 2 diabetes mellitus with hyperglycemia (E11.65) Active confirmed Problem 901154640 COVID-19 virus infection (U07.1) Problem resolved confirmed Problem 275449879 COVID-19 (U07.1) Inactive confirmed Problem 458761772 Chronic kidney disease, stage 3b (N18.32) Active confirmed Problem 162664402 Stage 3a chronic kidney disease (N18.31) Inactive confirmed Problem 495518004 Body mass index [BMI] 40.0-44.9, adult (Z68.41) Active confirmed Problem 381368981 Long-term curren t use of injectable noninsulin antidiabetic medication (Z79.85) Active confirmed Problem 48796575 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) Inactive confirmed Problem 8190654 Closed displaced trimalleolar fracture of right ankle, sequela (S82.851S) Inactive confirmed Vital Signs Heart Rate 96 /min 2025 Temperature 98.0 degrees Fahrenheit 2025 Respiratory Rate 18 /min 2025 Height-cm 152.4 cm 10/27/2024 Blood pressure diastolic 68 mm Hg 2025 Oximetry 98 % 2025 Weight-kg 86.64 kg 10/27/2024 Height 60 in 10/27/2024 Blood pressure systolic 122 mm Hg 2025 Weight 191 lbs 10/27/2024 BMI 37.3 kg/m2 10/27/2024 Encounters Encounter Location Date Provider Diagnosis [facility] [address] [place] [address] 04/04/2024 Rajwinder Johns [facility] [address] [place] [address] 09/26/2024 Rajwinder Johns [facility] [address] [place] [address] 10/10/2024 Rajwinder Nat [facility] [address] [place] [address] 10/10/2024 Rajwinder Johns [facility] [address] [place] [address] 12/02/2024 Rajwinder Johns [facility] [address] [place] [address] 02/24/2024 Rajwinder Johns 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 kidney disease, or unspecified chronic kidney disease I13.0 ; Chronic diastolic (congestive) heart failure I50.32 ; Stage 3a chronic kidney disease N18.31 ; COPD (chronic obstructive pulmonary disease) J44.9 ; Type 2 diabetes mellitus with diabetic neuropathy, unspecified E11.40 ; superintendent terminal (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 insulin Z79.4 ; Major [...] Z79.85 and Restless legs syndrome (RLS) G25.81 [facility] [address] [facility] [place] [address] 03/07/2024 Rajwinder Johns COVID-19 virus infection U07.1 [facility] [address] [place] [address] 02/19/2024 Rajwinder Johns COPD (chronic obstructive pulmonary disease) J44.9 ; Mixed incontinence N39.46 ; Uncontrolled type 2 diabetes mellitus with hyperglycemia E11.65 ; superintendent terminal (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 insulin Z79.4 ; COPD exacerbation J44.1 and Recurrent UTI (urinary tract infection) N39.0 [facility] [address] [place] [address] 06/24/2024 Rajwinder Johns 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 kidney disease, or unspecified chronic kidney disease I13.0 ; Chronic diastolic (congestive) heart failure I50.32 ; Stage 3a chronic kidney disease N18.31 ; COPD (chronic obstructive pulmonary disease) J44.9 ; Type 2 diabetes mellitus with diabetic neuropathy, unspecified E11.40 ; superintendent terminal (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 insulin Z79.4 ; Major [...] dependent Z99.81 and Other chronic pain G89.29 [facility] [address] [facility] [address] [place] [address] 06/30/2024 Rajwinder Nat COPD (chronic obstructive pulmonary disease) J44.9 and RACHNA (generalized anxiety disorder) F41.1 [facility] [address] [place] [address] 04/15/2024 Rajwinder Johns Closed displaced trimalleolar fracture of right ankle, sequela S82.851S [facility] [address] [place] [address] 10/28/2024 Operations Clinical Type 2 diabetes mellitus with diabetic neuropathy, unspecified E11.40 ; Uncontrolled type 2 diabetes mellitus with hyperglycemia E11.65 ; Dementia, unspecified, without behavioral disturbance F03.90 ; Major depressive disorder, recurrent episode, moderate F33.1 ; RACHNA (generalized anxiety disorder) F41.1 ; Restless legs syndrome (RLS) G25.81 ; Extrapyramidal disorder G25.9 ; ALDO on CPAP G47.33 ; Other chronic pain G89.29 ; 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 ; 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 kidney disease, or unspecified chronic kidney disease I13.0 ; Chronic diastolic (congestive) heart failure I50.32 ; Panlobular emphysema J43.1 ; COPD (chronic obstructive pulmonary disease) J44.9 ; Chronic respiratory failure with hypoxia J96.11 ; Unilateral primary osteoarthritis, left knee M17.12 ; Polymyalgia rheumatica M35.3 ; Arthritis, low back M47.819 ; Chronic kidney disease, stage 3b N18.32 ; Recurrent UTI (urinary tract infection) N39.0 ; Mixed incontinence N39.46 ; Displaced trimalleolar fracture of right lower leg, subsequent encounter for closed fracture with routine healing S82.851D ; MCC (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 insulin Z79.4 ; Long-term current use of injectable noninsulin antidiabetic medication Z79.85 ; 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 ; Morbid (severe) obesity due to excess calories E66.01 ; Body mass index [BMI] 40.0-44.9, adult Z68.41 ; Skin abrasion T14.8XXA and Seasonal allergic reaction J30.2 [facility] [address] [place] [address] 04/07/2024 Operations Clinical COPD (chronic obstructive pulmonary disease) J44.9 ; 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 kidney disease, or unspecified chronic kidney disease I13.0 ; Chronic diastolic (congestive) heart failure I50.32 ; Stage 3a chronic kidney disease N18.31 ; Uncontrolled type 2 diabetes mellitus with hyperglycemia E11.65 ; MCC (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 insulin Z79.4 ; Type [...] left knee M17.12 and Polymyalgia rheumatica M35.3 [facility] [address] [place] [address] 01/27/2025 Rajwinder Johns [facility] [address] [place] [address] 01/29/2024 Rajwinder Johns COPD (chronic obstructive pulmonary disease) J44.9 ; Mixed incontinence N39.46 ; Uncontrolled type 2 diabetes mellitus with hyperglycemia E11.65 ; MCC (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 insulin Z79.4 ; Major depressive disorder, recurrent episode, moderate F33.1 and RACHNA (generalized anxiety disorder) F41.[address] [place] [address] 07/05/2024 Rajwinder Johns COPD (chronic obstructive pulmonary disease) J44.9 ; RACHNA (generalized anxiety disorder) F41.1 and 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 [place] [address] 07/07/2024 Rajwinder Johns 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 kidney disease, or unspecified chronic kidney disease I13.0 ; Chronic diastolic (congestive) heart failure I50.32 ; Stage 3a chronic kidney disease N18.31 ; COPD (chronic obstructive pulmonary disease) J44.9 ; Type 2 diabetes mellitus with diabetic neuropathy, unspecified E11.40 ; superintendent terminal (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 insulin Z79.4 ; Major [...] dependent Z99.81 and Other chronic pain G89.[address] [place] [address] 07/15/2024 Rajwinder Johns COPD (chronic obstructive pulmonary disease) J44.9 ; RACHNA (generalized anxiety disorder) F41.1 ; 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 ; Type 2 diabetes mellitus with diabetic neuropathy, unspecified E11.40 ; Uncontrolled type 2 diabetes mellitus with hyperglycemia E11.65 ; Chronic kidney disease, stage 3b N18.32 ; Morbid (severe) obesity due to excess calories E66.01 ; Body mass index [BMI] 40.0-44.9, adult Z68.41 ; MCC (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 insulin Z79.4 ; Long-term current use of injectable noninsulin antidiabetic medication Z79.85 and 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 kidney disease, or unspecified chronic kidney disease I13.[address] [address] 07/22/2024 Rajwinder Johns COPD (chronic obstructive pulmonary disease) J44.9 ; RACHNA (generalized anxiety disorder) F41.1 ; 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 ; Type 2 diabetes mellitus with diabetic neuropathy, unspecified E11.40 ; Uncontrolled type 2 diabetes mellitus with hyperglycemia E11.65 ; Chronic kidney disease, stage 3b N18.32 ; Morbid (severe) obesity due to excess calories E66.01 ; Body mass index [BMI] 40.0-44.9, adult Z68.41 ; MCC (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 insulin Z79.4 ; Long-term current use of injectable noninsulin antidiabetic medication Z79.85 and 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 kidney disease, or unspecified chronic kidney disease I13.[address] [address] 07/28/2024 Rajwinder Johns COPD (chronic obstructive pulmonary disease) J44.9 ; RACHNA (generalized anxiety disorder) F41.1 ; 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 ; Type 2 diabetes mellitus with diabetic neuropathy, unspecified E11.40 ; Uncontrolled type 2 diabetes mellitus with hyperglycemia E11.65 ; Chronic kidney disease, stage 3b N18.32 ; Morbid (severe) obesity due to excess calories E66.01 ; Body mass index [BMI] 40.0-44.9, adult Z68.41 ; superintendent terminal (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 insulin Z79.4 ; Long-term current use of injectable noninsulin antidiabetic medication Z79.85 and 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 kidney disease, or unspecified chronic kidney disease I13.[address] [address] 08/02/2024 Rajwinder Johns COPD (chronic obstructive pulmonary disease) J44.9 ; RACHNA (generalized anxiety disorder) F41.1 ; 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 ; Type 2 diabetes mellitus with diabetic neuropathy, unspecified E11.40 ; Uncontrolled type 2 diabetes mellitus with hyperglycemia E11.65 ; Chronic kidney disease, stage 3b N18.32 ; Morbid (severe) obesity due to excess calories E66.01 ; Body mass index [BMI] 40.0-44.9, adult Z68.41 ; MCC (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 insulin Z79.4 ; Long-term current use of injectable noninsulin antidiabetic medication Z79.85 and 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 kidney disease, or unspecified chronic kidney disease I13.[address] [address] 08/08/2024 Rajwinder Johns COPD (chronic obstructive pulmonary disease) J44.9 ; RACHNA (generalized anxiety disorder) F41.1 ; 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 ; Type 2 diabetes mellitus with diabetic neuropathy, unspecified E11.40 ; Uncontrolled type 2 diabetes mellitus with hyperglycemia E11.65 ; Chronic kidney disease, stage 3b N18.32 ; Morbid (severe) obesity due to excess calories E66.01 ; Body mass index [BMI] 40.0-44.9, adult Z68.41 ; MCC (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 insulin Z79.4 ; Long-term [...] for closed fracture with routine healing S82.851D [address] [address] 08/16/2024 Rajwinder Johns COPD (chronic obstructive pulmonary disease) J44.9 ; RACHNA (generalized anxiety disorder) F41.1 ; 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 ; Type 2 diabetes mellitus with diabetic neuropathy, unspecified E11.40 ; Uncontrolled type 2 diabetes mellitus with hyperglycemia E11.65 ; Chronic kidney disease, stage 3b N18.32 ; Morbid (severe) obesity due to excess calories E66.01 ; Body mass index [BMI] 40.0-44.9, adult Z68.41 ; MCC (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 insulin Z79.4 ; Long-term [...] for closed fracture with routine healing S82.851D [address] [address] 08/23/2024 Rajwinder Johns COPD (chronic obstructive pulmonary disease) J44.9 ; RACHNA (generalized anxiety disorder) F41.1 ; 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 ; Type 2 diabetes mellitus with diabetic neuropathy, unspecified E11.40 ; Uncontrolled type 2 diabetes mellitus with hyperglycemia E11.65 ; Chronic kidney disease, stage 3b N18.32 ; Morbid (severe) obesity due to excess calories E66.01 ; Body mass index [BMI] 40.0-44.9, adult Z68.41 ; MCC (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 insulin Z79.4 ; Long-term [...] for closed fracture with routine healing S82.851D [address] [address] 08/30/2024 Rajwinder Johns COPD (chronic obstructive pulmonary disease) J44.9 ; RACHNA (generalized anxiety disorder) F41.1 ; 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 ; Type 2 diabetes mellitus with diabetic neuropathy, unspecified E11.40 ; Uncontrolled type 2 diabetes mellitus with hyperglycemia E11.65 ; Chronic kidney disease, stage 3b N18.32 ; Morbid (severe) obesity due to excess calories E66.01 ; Body mass index [BMI] 40.0-44.9, adult Z68.41 ; MCC (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 insulin Z79.4 ; Long-term [...] routine healing S82.851D and Skin abrasion T14.8XXA [address] [address] 09/01/2024 Rajwinder Johns RACHNA (generalized anxiety disorder) F41.1 ; Other chronic pain G89.29 ; Unilateral primary osteoarthritis, left knee M17.12 ; Arthritis, low back M47.819 ; Displaced trimalleolar fracture of right lower leg, subsequent encounter for closed fracture with routine healing S82.851D ; Skin abrasion T14.8XXA and Major depressive disorder, recurrent episode, moderate F33.[address] [address] 09/08/2024 Rajwinder Johns RACHNA (generalized anxiety disorder) F41.1 ; Other chronic pain G89.29 ; Unilateral primary osteoarthritis, left knee M17.12 ; Arthritis, low back M47.819 ; Displaced trimalleolar fracture of right lower leg, subsequent encounter for closed fracture with routine healing S82.851D ; Skin abrasion T14.8XXA and Major depressive disorder, recurrent episode, moderate F33.[address] [address] 09/15/2024 Rajwinder Johns RACHNA (generalized anxiety disorder) [...] disease) J44.9 ; 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 ; MCC (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 insulin Z79.4 ; Long-term current use of injectable noninsulin antidiabetic medication Z79.85 ; Chronic kidney disease, stage 3b N18.32 and Morbid (severe) obesity due to excess calories E66.[address] [address] 09/22/2024 Rajwinder Johns RACHNA (generalized anxiety disorder) [...] disease) J44.9 ; 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 ; superintendent terminal (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 insulin Z79.4 ; Long-term current use of injectable noninsulin antidiabetic medication Z79.85 ; Chronic kidney disease, stage 3b N18.32 and Morbid (severe) obesity due to excess calories E66.01 [place] [id number] [address] 09/29/2024 Rajwinder Johns RACHNA (generalized anxiety disorder) [...] disease) J44.9 ; 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 ; MCC (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 insulin Z79.4 ; Long-term current use of injectable noninsulin antidiabetic medication Z79.85 ; Chronic kidney disease, stage 3b N18.32 and Morbid (severe) obesity due to excess calories E66.[address] [address] 10/07/2024 Rajwinder Johns RACHNA (generalized anxiety disorder) [...] disease) J44.9 ; 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 ; superintendent terminal (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 insulin Z79.4 ; Long-term current use of injectable noninsulin antidiabetic medication Z79.85 ; Chronic kidney disease, stage 3b N18.32 and Morbid (severe) obesity due to excess calories E66.[address] [address] 10/14/2024 Rajwinder Johns RACHNA (generalized anxiety disorder) F41.1 [...] disease) J44.9 ; 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 ; superintendent terminal (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 insulin Z79.4 ; Long-term current use of injectable noninsulin antidiabetic medication Z79.85 ; Chronic kidney disease, stage 3b N18.32 and Morbid (severe) obesity due to excess calories E66.[address] [address] 10/21/2024 Rajwinder Johns RACHNA (generalized anxiety disorder) F41.1 [...] disease) J44.9 ; 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 ; superintendent terminal (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 insulin Z79.4 ; Long-term current use of injectable noninsulin antidiabetic medication Z79.85 ; Chronic kidney disease, stage 3b N18.32 and Morbid (severe) obesity due to excess calories E66.[address] [address] 12/16/2024 Rajwinder Johns Arthritis, low back M47.819 ; Type 2 diabetes mellitus with diabetic neuropathy, unspecified E11.40 ; 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 kidney disease, or unspecified chronic kidney disease I13.0 ; COPD (chronic obstructive pulmonary disease) J44.9 ; 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 and Chronic kidney disease, stage 3b N18.[address] [address] 12/27/2024 Rajwinder Johns COPD (chronic obstructive pulmonary disease) J44.9 ; Recurrent UTI (urinary tract infection) N39.0 ; Type 2 diabetes mellitus with diabetic neuropathy, unspecified E11.40 ; Uncontrolled type 2 diabetes mellitus with hyperglycemia E11.65 ; Chronic respiratory failure with hypoxia J96.11 ; superintendent terminal (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 insulin Z79.4 ; Long-term current use of injectable noninsulin antidiabetic medication Z79.85 and 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 [address] 2025 Rajwinder Johns COPD (chronic obstructive pulmonary disease) J44.9 ; Recurrent UTI (urinary tract infection) N39.0 ; Type 2 diabetes mellitus with diabetic neuropathy, unspecified E11.40 ; Uncontrolled type 2 diabetes mellitus with hyperglycemia E11.65 ; Chronic respiratory failure with hypoxia J96.11 ; superintendent terminal (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 insulin Z79.4 ; Long-term current use of injectable noninsulin antidiabetic medication Z79.85 ; 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 ; 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 kidney disease, or unspecified chronic kidney disease I13.0 ; Chronic kidney disease, stage 3b N18.32 ; Vitamin D deficiency, unspecified E55.9 and Mixed incontinence N39.[address] [address] 11/04/2024 Rajwinder Johns Arthritis, low back M47.819 ; Type 2 diabetes mellitus with diabetic neuropathy, unspecified E11.40 ; 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 kidney disease, or unspecified chronic kidney disease I13.0 ; COPD (chronic obstructive pulmonary disease) J44.9 ; 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 ; Chronic kidney disease, stage 3b N18.32 and Seasonal allergic reaction J30.[address] [address] 11/14/2024 Rajwinder Evansard Arthritis, low back M47.819 ; Type 2 diabetes mellitus with diabetic neuropathy, unspecified E11.40 ; 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 kidney disease, or unspecified chronic kidney disease I13.0 ; COPD (chronic obstructive pulmonary disease) J44.9 ; 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 and Chronic kidney disease, stage 3b N18.[address] [address] 11/28/2024 Rajwinder Evansard Arthritis, low back M47.819 ; Type 2 diabetes mellitus with diabetic neuropathy, unspecified E11.40 ; 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 kidney disease, or unspecified chronic kidney disease I13.0 ; COPD (chronic obstructive pulmonary disease) J44.9 ; 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 and Chronic kidney disease, stage 3b N18.[address] [address] 04/27/2024 Rajwinder Evansard Closed displaced trimalleolar fracture of right ankle, sequela S82.851S Formerly [facility] [address] [facility] [address] [place] [address] 06/06/2024 Rajwinder Evansard Displaced trimalleolar fracture of right lower leg, subsequent encounter for closed fracture with routine healing S82.851D [address] [address] 03/10/2024 Rajwinder Nat COPD (chronic obstructive pulmonary disease) J44.9 ; COPD exacerbation J44.1 ; COVID-19 virus infection U07.1 ; Uncontrolled type 2 diabetes mellitus with hyperglycemia E11.65 ; Type 2 diabetes mellitus with diabetic neuropathy, unspecified E11.40 ; Long-term current use of injectable noninsulin antidiabetic medication Z79.85 and MCC (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 insulin Z79.[address] [address] 03/25/2024 Rajwinder Johns 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 kidney disease, or unspecified chronic kidney disease I13.0 ; Chronic diastolic (congestive) heart failure I50.32 ; Stage 3a chronic kidney disease N18.31 ; COPD (chronic obstructive pulmonary disease) J44.9 ; Type 2 diabetes mellitus with diabetic neuropathy, unspecified E11.40 ; superintendent terminal (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 insulin Z79.4 ; Major [...] syndrome (RLS) G25.81 and Polymyalgia rheumatica M35.[address] [address] 04/04/2024 Rajwinder Johns Uncontrolled type 2 diabetes mellitus with hyperglycemia E11.65 ; Type 2 diabetes mellitus with diabetic neuropathy, unspecified E11.40 ; Mixed incontinence N39.46 ; Recurrent UTI (urinary tract infection) N39.0 and Dysuria R30.[address] [address] 12/02/2024 Rajwinder Johns History of falling Z91.81 Former[facility] [address] [address] 10/27/2024 Rajwinder Johns Arthritis, low back M47.819 ; Type 2 diabetes mellitus with diabetic neuropathy, unspecified E11.40 ; 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 kidney disease, or unspecified chronic kidney disease I13.0 ; COPD (chronic obstructive pulmonary disease) J44.9 ; 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 ; Chronic kidney disease, stage 3b N18.32 and Seasonal allergic reaction J30.2 [facility] [address] [place] [address] 03/08/2024 Rajwinder Johns COPD (chronic obstructive pulmonary disease) J44.9 ; COPD exacerbation J44.1 and COVID-19 virus infection U07.1 Assessments Encounter Date Diagnosis (ICD Code) Assessment Notes Treatment Notes Treatment Clinical Notes Section Notes 01/29/2024 COPD (chronic obstructive pulmonary disease) (ICD-10 [...] continue routine follow up with PCP and boiler inspector 02/19/2024 COPD (chronic obstructive pulmonary disease) (ICD-10 [...] routine follow up with PCP (02/24/2024) and boiler inspector 02/24/2024 Hypertensive heart and chronic kidney disease [...] - F/U with PCP/nephro for ongoing monitoring/mgmt 03/07/2024 COVID-19 virus infection (ICD-10 - U07.1) [...] for chest pain, dyspnea, syncope, high fever 03/08/2024 COPD (chronic obstructive pulmonary disease) (ICD-10 - J44.9) 03/10/2024 COPD (chronic obstructive pulmonary disease) (ICD-10 - J44.9) 03/25/2024 Hypertensive heart and chronic kidney disease [...] - F/U with PCP/nephro for ongoing monitoring/mgmt 04/04/2024 Uncontrolled type 2 diabetes mellitus with hyperglycemia (ICD-10 - E11.65) 04/07/2024 COPD (chronic obstructive pulmonary disease) (ICD-10 - J44.9) Dx added from [facility] 04/15/2024 Closed displaced trimalleolar fracture of right [...] as needed and upon discharge once notified 06/24/2024 Hypertensive heart and chronic kidney disease [...] - Observe fluid restrictions if advised by rattle leak and squeak repairer/PCP - Continue routine F/U with rattle leak and squeak repairer and PCP - Contact provider or call 911/utilize ER or [facility] if approp for acute cardiac concerns - Avoid nephrotoxic meds where possible, renally adjust meds if clinically appropriate - F/U with PCP/nephro for ongoing monitoring/mgmt 06/30/2024 COPD (chronic obstructive pulmonary disease) (ICD-10 - J44.9) Chronic/Resolving mild exacerbation - Member appears stable during visit without sxs of exacerbation today, o2 sat 98% - Has follow up with pulmologist later today - Dr. Frederick of [place] - Continue medications and inhalers as prescribed - Educated member on importance of O2 use as prescribed - Avoid triggers as possible - Monitor for increased dyspnea or productive cough as first signs of exacerbation - Report any changes in symptoms or worsening SOB to providers/PCP/pulm - Encourage healthy diet to minimize risk of unwanted weight loss 07/05/2024 COPD (chronic obstructive pulmonary disease) (ICD-10 - J44.9) Chronic/Resolved exacerbation - Member appears stable during visit without sxs of exacerbation today, o2 sat 98% - Had follow up with boiler inspector - Continue medications and inhalers as prescribed - Educated member on importance of O2 use as prescribed - Avoid triggers as possible - Monitor for increased dyspnea or productive cough as first signs of exacerbation - Report any changes in symptoms or worsening SOB to providers/PCP/pulm - Encourage healthy diet to minimize risk of unwanted weight loss 07/07/2024 Hypertensive heart and chronic kidney disease [...] - Observe fluid restrictions if advised by rattle leak and squeak repairer/PCP - Continue routine F/U with rattle leak and squeak repairer and PCP - Contact provider or call [...] sat 98% - Had follow up with boiler inspector - Continue medications and inhalers as prescribed [...] sat 98% - Had follow up with boiler inspector - Continue medications and inhalers as prescribed [...] sat 98% - Had follow up with boiler inspector - Continue medications and inhalers as prescribed [...] sat 98% - Had follow up with boiler inspector - Continue medications and inhalers as prescribed [...] sat 98% - Had follow up with boiler inspector - Continue medications and inhalers as prescribed [...] sat 98% - Had follow up with boiler inspector - Continue medications and inhalers as prescribed [...] to minimize risk of unwanted weight loss 09/01/2024 RACHNA (generalized anxiety disorder) (ICD-10 - [...] to music. - Member considering assistance from [facility] - Follow up with PCP routinely, and [...] to music. - Member considering assistance from [facility] but declines today - Follow up with [...] listening to music. - Member agreeable to [facility] referral today - Follow up with PCP [...] left with him - Member agreeable to [facility] referral today - Follow up with PCP [...] listening to music. - Member agreeable to [facility] referral - In process - Follow up with PCP routinely, and prescriber - Angie Mccray, advised to make her aware of [facility] referral to community therapist - Reminded to [...] listening to music. - Member agreeable to [facility] referral - In process - Follow up with PCP routinely, and prescriber - Angie Mccray, advised to make her aware of [facility] referral to community therapist - Reminded to call pcp or this APC for worsening anxiety or depression -Crisis info given and advised to seek ED eval for SI/HI/AVH 10/14/2024 RACHNA (generalized anxiety disorder) (ICD-10 - F41.1) [...] listening to music. - Member agreeable to [facility] referral - In process - Follow up with PCP routinely, and prescriber - Angie Mccray, advised to make her aware of [facility] referral to community therapist - Reminded to call pcp or this APC for worsening anxiety or depression -Crisis info given and advised to seek ED eval for SI/HI/AVH 10/21/2024 RACHNA (generalized anxiety disorder) (ICD-10 - F41.1) [...] listening to music. - Member agreeable to [facility] referral - awaiting contact - Follow up with PCP routinely, and prescriber - nAgie Mccray as scheduled - Reminded to call pcp or this APC for worsening anxiety or depression -Crisis info given and advised to seek ED eval for SI/HI/AVH 10/27/2024 Arthritis, low back (ICD-10 - M47.819) Chronic/Labile - Pain to low back; muscular - Educated to exercise regularly (low impact) for short periods as tolerated and PT/rehab may be helpful with movement and reduce pain/stress on joints - Will refer to home PT - Use assistive devices to avoid falls [...] managed - F/U with PCP/rheum/ortho as directed 10/28/2024 Type 2 diabetes mellitus with diabetic neuropathy, unspecified (ICD-10 - E11.40) 11/04/2024 Arthritis, low back (ICD-10 - M47.819) Chronic/Labile - Pain to low back; muscular - Educated to exercise regularly (low impact) for short periods as tolerated and PT/rehab may be helpful with movement and reduce pain/stress on joints - Will refer to home PT - patient declines - Use assistive devices to avoid falls [...] managed - F/U with PCP/rheum/ortho as directed 11/14/2024 Arthritis, low back (ICD-10 - M47.819) Chronic/Labile - Pain to low back; muscular - Educated to exercise regularly (low impact) for short periods as tolerated and PT/rehab may be helpful with movement and reduce pain/stress on joints - Will refer to home PT - patient declines - Use assistive devices to avoid falls [...] managed - F/U with PCP/rheum/ortho as directed 11/28/2024 Arthritis, low back (ICD-10 - M47.819) Chronic/Labile - Pain to low back; muscular - Educated to exercise regularly (low impact) for short periods as tolerated and PT/rehab may be helpful with movement and reduce pain/stress on joints - Will refer to home PT - patient declines - Use assistive devices to avoid falls [...] managed - F/U with PCP/rheum/ortho as directed 12/02/2024 History of falling (ICD-10 - Z91.81) Chronic with New Fall yesterday - Continue use of AD as needed and continue fall/safety precautions -educated on fall avoidance today - Recommend clearing pathways around bedroom, apartment in general - Son/MULCHER OPERATOR asked to help with this - Refer to PT/rehab as appropriate - patient declines - Report any falls or acute changes to gait immediately for ongoing w/u and mgmt - Recommend PCP f/u 12/16/2024 Arthritis, low back (ICD-10 - M47.819) Chronic/Labile - Pain to low back; muscular - Educated to exercise regularly (low impact) for short periods as tolerated and PT/rehab may be helpful with movement and reduce pain/stress on joints - Will refer to home PT - patient declines - Use assistive devices to avoid falls [...] managed - F/U with PCP/rheum/ortho as directed 12/27/2024 COPD (chronic obstructive pulmonary disease) (ICD-10 - J44.9) J96.11 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 Acute/Exacerbated- Improving - Member appears stable during visit without sxs of exacerbation - Continue medications and inhalers as prescribed - reviewed importance of adherence to nebs schedule and completion of course of prednisone - Educated member on importance of O2 use as prescribed - Avoid triggers as possible - Monitor for increased dyspnea or productive cough as first signs of exacerbation - Report any changes in symptoms or worsening SOB to providers/PCP/pulm - Encourage healthy diet to minimize risk of unwanted weight loss 2025 COPD (chronic obstructive pulmonary disease) (ICD-10 - J44.9) J96.11 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 Acute/Exacerbated- Improving - Member appears stable during visit without sxs of exacerbation - Continue medications and inhalers as prescribed - reviewed importance of adherence to nebs schedule and completion of course of prednisone - Educated member on importance of O2 use as prescribed - Avoid triggers as possible - Monitor for increased dyspnea or productive cough as first signs of exacerbation - Report any changes in symptoms or worsening SOB to providers/PCP/pulm - Encourage healthy diet to minimize risk of unwanted weight loss 2025 Recurrent UTI (urinary tract infection) (ICD-10 - N39.0) N39.6 Mixed Incontinence Chronic/Labile - continues with complaints, seen at [facility] yesterday and received c/b today no infection - Completed recent course of cefpodoxime - Reviewed personal hygeine and changing pad/brief frequently - Avoid bladder irritants like caffeine, smoking - Report any sxs of infection or retention immediately to prescribers for ongoing w/u and mgmt Continue to f/u with Pcp 12/27/2024 Recurrent UTI (urinary tract infection) (ICD-10 - N39.0) - Chronic, stable - No acute complaints - Continue medications as prescribed - picked up rx for cefpodoxime for patient and proved instructions on use as well as intended effects and potential s/e's; to take with food - Reviewed personal hygeine and changing pad/brief frequently - Report any sxs of infection or retention immediately to prescribers for ongoing w/u and mgmt 12/16/2024 Type 2 diabetes mellitus with diabetic neuropathy, unspecified (ICD-10 - E11.40) 11.65 Uncontrolled T2DM with hyperglycemia E66.01 Obesity Z79.4 LT use of insulin Z79.85 LT use of injectable non-insulin antidiabetic me Chronic/Labile Sugars are variable based on diet - Continue check BG as ordered/directed; recommended but declines CGM - Continue medication as prescribed - Novolog per [facility] weekly - Recommend yearly eye exams, A1c - Recommend diabetic diet - offered referral to rn diabetes educator - declines - Discussed potential for end-organ damage with chronic hyperglycemia - F/U with podiatry (as needed/desired) for regular foot checks - Report any sxs of hypo- or hyperglycemia immediately - F/U with PCP/endocrine for ongoing mgmt/monitoring 11.65 Uncontrolled T2DM with hyperglycemia 11/28/2024 Type 2 diabetes mellitus with diabetic neuropathy, unspecified (ICD-10 - E11.40) 11.65 Uncontrolled T2DM with hyperglycemia E66.01 Obesity Z79.4 LT use of insulin Z79.85 LT use of injectable non-insulin antidiabetic me Chronic/Labile Sugars are variable based on diet - Continue check BG as ordered/directed; recommended but declines CGM - Continue medication as prescribed - [facility] - Recommend yearly eye exams, A1c - Recommend diabetic diet - offered referral to rn diabetes educator - declines - Discussed potential for end-organ damage with chronic hyperglycemia - F/U with podiatry (as needed/desired) for regular foot checks - Report any sxs of hypo- or hyperglycemia immediately - F/U with PCP/endocrine for ongoing mgmt/monitoring 11.65 Uncontrolled T2DM with hyperglycemia 11/14/2024 Type 2 diabetes mellitus with diabetic neuropathy, unspecified (ICD-10 - E11.40) 11.65 Uncontrolled T2DM with hyperglycemia E66.01 Obesity Z79.4 LT use of insulin Z79.85 LT use of injectable non-insulin antidiabetic me Chronic/Labile Sugars are variable based on diet - Continue check BG as ordered/directed; recommended but declines CGM - Continue medication as prescribed - [facility] - Recommend yearly eye exams, A1c - Recommend diabetic diet - offered referral to rn diabetes educator - declines - Discussed potential for end-organ damage with chronic hyperglycemia - F/U with podiatry (as needed/desired) for regular foot checks - Report any sxs of hypo- or hyperglycemia immediately - F/U with PCP/endocrine for ongoing mgmt/monitoring 11.65 Uncontrolled T2DM with hyperglycemia 11/04/2024 Type 2 diabetes mellitus with diabetic neuropathy, unspecified (ICD-10 - E11.40) 11.65 Uncontrolled T2DM with hyperglycemia E66.01 Obesity Z79.4 LT use of insulin Z79.85 LT use of injectable non-insulin antidiabetic me Chronic/Labile Sugars are variable based on diet - Continue check BG as ordered/directed; recommended but declines CGM - Continue medication as prescribed - [facility] - Recommend yearly eye exams, A1c - Recommend diabetic diet - offered referral to rn diabetes educator - declines - Discussed potential for end-organ damage with chronic hyperglycemia - F/U with podiatry (as needed/desired) for regular foot checks - Report any sxs of hypo- or hyperglycemia immediately - F/U with PCP/endocrine for ongoing mgmt/monitoring 10/28/2024 Uncontrolled type 2 diabetes mellitus with hyperglycemia (ICD-10 - E11.65) 10/27/2024 Type 2 diabetes mellitus with diabetic neuropathy, unspecified (ICD-10 - E11.40) 11.65 Uncontrolled T2DM with hyperglycemia E66.01 Obesity Z79.4 LT use of insulin Z79.85 LT use of injectable non-insulin antidiabetic me Chronic/Labile Sugars are variable based on diet - Continue check BG as ordered/directed; recommended but declines CGM - Continue medication as prescribed - Novolog per SS, trulicity weekly - Recommend yearly eye exams, A1c - Recommend diabetic diet - offered referral to rn diabetes educator - declines - Discussed potential for end-organ damage with chronic hyperglycemia - F/U with podiatry (as needed/desired) for regular foot checks - Report any sxs of hypo- or hyperglycemia immediately - F/U with PCP/endocrine for ongoing mgmt/monitoring 10/21/2024 Other chronic pain (ICD-10 - G89.29) M17.12 Unilateral primary OA of L knee M47.819 Arthritis, low back S82.851D displaced trimalleolar fracture or RLE, subsequent encounter with routine healing Chronic/Stable - Pain/stiffness in multiple joints at baseline - Educated to exercise regularly (low impact) for short periods as tolerated and PT/rehab may be helpful with movement and reduce pain/stress on joints - Consider Home PT- patient to think about it - Use assistive devices to avoid falls d/t pain and stiffness as needed - Avoid heavy lifting or overuse of joints - Continue medications as prescribed - Continue to wear ankle brace as directed by ortho - Use heat and/or cold to reduce pain/stiffness if helpful, for short periods only (<15 minutes) to avoid skin damage - Inform providers if pain worsens and report any acute changes to providers if pain is not managed - F/U with PCP/rheum/ortho as directed 10/14/2024 Other chronic pain (ICD-10 - G89.29) M17.12 [...] pain/stress on joints - Continue PT at [facility] - Use assistive devices to avoid [...] pain/stress on joints - Continue PT at [facility] - Use assistive devices to avoid [...] pain/stress on joints - Continue PT at [facility] - Use assistive devices [...] pain/stress on joints - Continue PT at [facility] - Use assistive devices to avoid [...] pain/stress on joints - Continue PT at [facility] - Use assistive devices to avoid [...] HOME PEDAL DEVICE ORDERED and PENDING DELIVERY 09/08/2024 Other chronic pain (ICD-10 - G89.29) [...] pain/stress on joints - Continue PT at [facility] - Use assistive devices to avoid [...] pain/stress on joints - Continue PT at [facility] - Use assistive devices to avoid [...] HOME PEDAL DEVICE ORDERED and PENDING DELIVERY 08/30/2024 RACHNA (generalized anxiety disorder) (ICD-10 - F41.1) Chronic/Labile -Reviewed nature of anxiety, which can range from excessive worry to incapacitating baseless fear. Discussed s/s of shelia and when to report. Denies self harm, insomnia, difficulty concentrating. -Reviewed nonmedical management techniques - breathing (8-7-4 technique), meditating, reading, listening to music. - Member declines assistance from [facility] - Follow up with PCP and prescriber - Angie Mccray, advised to f/u on referral to community therapist - Reminded to call pcp or this APC for worsening anxiety 08/23/2024 RACHNA (generalized anxiety disorder) (ICD-10 - F41.1) Chronic/Labile -Reviewed nature of anxiety, which can range from excessive worry to incapacitating baseless fear. Discussed s/s of shelia and when to report. Denies self harm, insomnia, difficulty concentrating. -Reviewed nonmedical management techniques - breathing (8-7-4 technique), meditating, reading, listening to music. - Member declines assistance from [facility] - Follow up with PCP and prescriber [...] s/s of anxiety. Member declines assistance from [facility] - Follow up with PCP and prescriber [...] s/s of anxiety. Member declines assistance from [facility] - Follow up with PCP and prescriber [...] s/s of anxiety. Member declines assistance from [facility] - Follow up with PCP and prescriber [...] s/s of anxiety. Member declines assistance from [facility] - Follow up with PCP and prescriber [...] s/s of anxiety. Member declines assistance from [facility] - Follow up with PCP and prescriber [...] s/s of anxiety. Member declines assistance from [facility] - Follow up with PCP and prescriber - Angie Mccray, advised to f/u on referral to community therapist - Reminded to call pcp or this APC for worsening anxiety 07/07/2024 Chronic diastolic (congestive) heart failure (ICD-10 - I50.32) 07/05/2024 RACHNA (generalized anxiety disorder) (ICD-10 - F41.1) Chronic/Stable Reviewed nature of anxiety, which can range from excessive worry to incapacitating baseless fear. Reviewed nonmedical management techniques. Member denies increased s/s of anxiety. Member declines assistance from [facility] - Follow up with PCP and prescriber [...] s/s of anxiety. Member declines assistance from [facility] - Follow up with PCP and prescriber - Angie Mccray, advised to f/u on referral to community therapist - Reminded to call pcp or this APC for worsening anxiety 06/24/2024 Chronic diastolic (congestive) heart failure (ICD-10 [...] - F/U with PCP/endocrine for ongoing mgmt/monitoring 03/25/2024 Chronic diastolic (congestive) heart failure (ICD-10 - I50.32) 03/10/2024 COPD exacerbation (ICD-10 - J44.1) J44.9 [...] as needed for new or worsening sxs 03/08/2024 COPD exacerbation (ICD-10 - J44.1) J44.9 [...] as needed for new or worsening sxs 02/24/2024 Chronic diastolic (congestive) heart failure (ICD-10 - I50.32) 02/19/2024 Mixed incontinence (ICD-10 - N39.46) Chronic/Stable [...] will continue to monitor s/sx UTIs 01/29/2024 Uncontrolled type 2 diabetes mellitus with [...] 3a chronic kidney disease (ICD-10 - N18.31) 02/19/2024 Uncontrolled type 2 diabetes mellitus with [...] 03/08/2024 COVID-19 virus infection (ICD-10 - U07.1) 03/10/2024 COVID-19 virus infection (ICD-10 - U07.1) 03/25/2024 Stage 3a chronic kidney disease (ICD-10 - N18.31) 04/04/2024 Mixed incontinence (ICD-10 - N39.46) 04/07/2024 Chronic diastolic (congestive) heart failure (ICD-10 - I50.32) Dx added from [facility] 06/24/2024 Stage 3a chronic kidney disease (ICD-10 - N18.31) 07/05/2024 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) 07/07/2024 Stage 3a chronic kidney disease (ICD-10 - N18.31) 07/15/2024 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) 07/22/2024 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) 07/28/2024 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) 08/02/2024 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) 08/08/2024 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) 08/16/2024 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) 08/23/2024 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) 08/30/2024 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) 09/01/2024 Unilateral primary osteoarthritis, left knee (ICD-10 - M17.12) 09/08/2024 Unilateral primary osteoarthritis, left knee (ICD-10 - M17.12) 09/15/2024 Unilateral primary osteoarthritis, left knee (ICD-10 - M17.12) 09/22/2024 Unilateral primary osteoarthritis, left knee (ICD-10 - M17.12) 09/29/2024 Unilateral primary osteoarthritis, left knee (ICD-10 - M17.12) 10/07/2024 Unilateral primary osteoarthritis, left knee (ICD-10 - M17.12) 10/14/2024 Unilateral primary osteoarthritis, left knee (ICD-10 - M17.12) 10/21/2024 Unilateral primary osteoarthritis, left knee (ICD-10 - M17.12) 10/27/2024 Hypertensive heart and chronic kidney disease with [...] by controlling BP. Continue to f/u with PCP/Social Director routinely 11/04/2024 Hypertensive heart and chronic kidney disease with [...] by controlling BP. Continue to f/u with PCP/Social Director routinely 10/28/2024 Dementia, unspecified, without behavioral disturbance (ICD-10 - F03.90) 11/14/2024 Hypertensive heart and chronic kidney disease with [...] by controlling BP. Continue to f/u with PCP/Social Director routinely 11/28/2024 Hypertensive heart and chronic kidney disease with [...] by controlling BP. Continue to f/u with PCP/Social Director routinely 12/16/2024 Hypertensive heart and chronic kidney disease with [...] by controlling BP. Continue to f/u with PCP/Social Director routinely 12/27/2024 Type 2 diabetes mellitus with diabetic neuropathy, unspecified (ICD-10 - E11.40) 2025 Type 2 diabetes mellitus with diabetic neuropathy, unspecified (ICD-10 - E11.40) 2025 Uncontrolled type 2 diabetes mellitus with hyperglycemia (ICD-10 - E11.65) E11.40 T2DM with diabetic neuropathy LT current use of insulin LT current use of injectable noninsulin antidiabetic medication Chronic/Labile Likely hyperglycemia due to prednisone - reviewed importance of checking sugars frequently, taking humalog as prescribed prior to meals, increase fluids and strict no added sugar carb controlled diet while on pred - Continue medication as prescribed - Recommend yearly eye exams, A1c - Recommend diabetic diet - Discussed potential for end-organ damage with chronic hyperglycemia - F/U with podiatry (as needed/desired) for regular foot checks - Report any sxs of hypo- or hyperglycemia immediately - F/U with PCP/endocrine for ongoing mgmt/monitoring 12/27/2024 Uncontrolled type 2 diabetes mellitus with hyperglycemia (ICD-10 - E11.65) E11.40 T2DM with diabetic neuropathy LT current use of insulin LT current use of injectable noninsulin antidiabetic medication Chronic/Labile Likely hyperglycemia due to prednisone - reviewed importance of checking sugars frequently, taking humalog as prescribed prior to meals, increase fluids and strict no added sugar carb controlled diet while on pred - Continue medication as prescribed - Recommend yearly eye exams, A1c - Recommend diabetic diet - Discussed potential for end-organ damage with chronic hyperglycemia - F/U with podiatry (as needed/desired) for regular foot checks - Report any sxs of hypo- or hyperglycemia immediately - F/U with PCP/endocrine for ongoing mgmt/monitoring 12/16/2024 COPD (chronic obstructive pulmonary disease) (ICD-10 - J44.9) Z99.81 O2 dependent Chronic/Stable - Member appears stable during visit without sxs of exacerbation - Continue medications and inhalers as prescribed - including budesonide and ipratropium for wheezing PRN per Dr. Frederick recommendation - Educated member on importance of O2 use as prescribed - Avoid triggers as possible - educated - Monitor for increased dyspnea or productive cough as first signs of exacerbation - Report any changes in symptoms or worsening SOB to providers/PCP/pulm onologist 11/28/2024 COPD (chronic obstructive pulmonary disease) (ICD-10 - J44.9) Z99.81 O2 dependent Chronic/Stable - Member appears stable during visit without sxs of exacerbation - Continue medications and inhalers as prescribed - including budesonide and ipratropium for wheezing PRN per Dr. Frederick recommendation - Educated member on importance of O2 use as prescribed - Avoid triggers as possible - educated - Monitor for increased dyspnea or productive cough as first signs of exacerbation - Report any changes in symptoms or worsening SOB to providers/PCP/pulm onologist 10/28/2024 Major depressive disorder, recurrent episode, moderate (ICD-10 - F33.1) 11/14/2024 COPD (chronic obstructive pulmonary disease) (ICD-10 - J44.9) Z99.81 O2 dependent Chronic/Stable - Member appears stable during visit without sxs of exacerbation - Continue medications and inhalers as prescribed - including budesonide and ipratropium for wheezing PRN per Dr. Frederick recommendation - Educated member on importance of O2 use as prescribed - Avoid triggers as possible - educated - Monitor for increased dyspnea or productive cough as first signs of exacerbation - Report any changes in symptoms or worsening SOB to providers/PCP/pulm onologist 11/04/2024 COPD (chronic obstructive pulmonary disease) (ICD-10 - J44.9) Z99.81 O2 dependent Chronic/Labile - Member appears stable during visit without sxs of exacerbation - Continue medications and inhalers as prescribed - including budesonide and ipratropium while having wheezing per Dr. Frederick recommendation - Educated member on importance of O2 use as prescribed - Avoid triggers as possible - educated - Monitor for increased dyspnea or productive cough as first signs of exacerbation - Report any changes in symptoms or worsening SOB to providers/PCP/pulm 10/27/2024 COPD (chronic obstructive pulmonary disease) (ICD-10 - J44.9) Z99.81 O2 dependent Chronic/Labile - Member appears stable during visit without sxs of exacerbation - Continue medications and inhalers as prescribed - including budesonide and ipratropium while having wheezing per Dr. rFederick recommendation - Educated member on importance of O2 use as prescribed - Avoid triggers as possible - educated - Monitor for increased dyspnea or productive cough as first signs of exacerbation - Report any changes in symptoms or worsening SOB to providers/PCP/pulm 10/21/2024 Arthritis, low back (ICD-10 - M47.819) 10/14/2024 Arthritis, low back (ICD-10 - M47.819) 10/07/2024 Arthritis, low back (ICD-10 - M47.819) 09/29/2024 Arthritis, low back (ICD-10 - M47.819) 09/22/2024 Arthritis, low back (ICD-10 - M47.819) 09/08/2024 Arthritis, low back (ICD-10 - M47.819) 09/15/2024 Arthritis, low back (ICD-10 - M47.819) 09/01/2024 Arthritis, low back (ICD-10 - M47.819) 08/23/2024 Type 2 diabetes mellitus with diabetic [...] loss - Follow up with PCP and Insurance Sales Representative routinely - Seek ED evaluation for hypoxia, dyspnea, chest pain 04/04/2024 Recurrent UTI (urinary tract infection) (ICD-10 - N39.0) 03/25/2024 COPD (chronic obstructive pulmonary disease) (ICD-10 [...] minimize risk of unwanted weight loss 03/10/2024 Uncontrolled type 2 diabetes mellitus with [...] - F/U with PCP/endocrine for ongoing mgmt/monitoring 04/07/2024 Stage 3a chronic kidney disease (ICD-10 - N18.31) Dx added from [facility] 06/24/2024 COPD (chronic obstructive pulmonary disease) (ICD-10 [...] loss - Follow up with PCP and Insurance Sales Representative routinely - Seek ED evaluation for hypoxia, dyspnea, chest pain 02/24/2024 COPD (chronic obstructive pulmonary disease) (ICD-10 [...] to minimize risk of unwanted weight loss 02/19/2024 [facility] (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 insulin (ICD-10 - Z79.4) 01/29/2024 superintendent terminal (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 insulin (ICD-10 - Z79.4) 01/29/2024 Major depressive disorder, recurrent episode, moderate (ICD-10 - F33.1) F41.1 RACHNA Chronic/Stable - PHQ9/GAD7 completed as above - Reviewed nature of anxiety and depressive sxs - denies sxs of increased worry/sadness - Reviewed nonmedical management techniques - Continue medications as prescribed - Continue outpatient F/U with therapist/prescrib ers at [facility] and involve [facility] team as appropriate - Monitor for increased sxs of depression/anxiety and report acute changes to providers - Utilize emergency services if having sxs of SI/HI/AVH as appropriate 02/19/2024 COPD exacerbation (ICD-10 - J44.1) 02/24/2024 Type 2 diabetes mellitus with diabetic [...] - F/U with PCP/endocrine for ongoing mgmt/monitoring 04/07/2024 Uncontrolled type 2 diabetes mellitus with hyperglycemia (ICD-10 - E11.65) Dx added from [facility] 03/10/2024 Type 2 diabetes mellitus with diabetic neuropathy, unspecified (ICD-10 - E11.40) 04/04/2024 Dysuria (ICD-10 - R30.0) N39.46 Mixed incontinence N39.0 Recurrent UTI Acute/recurrent - member reports frequent UTI. currenlty reports dysuria, pressure and frequent urination, Denies [...] for [facility] for acute s/sx's after hours/weekends 03/25/2024 Type 2 diabetes mellitus with diabetic [...] mellitus with hyperglycemia (ICD-10 - E11.65) 07/07/2024 Type 2 diabetes mellitus with diabetic [...] F/U with PCP/endocrine for ongoing mgmt/monitoring 08/02/2024 Uncontrolled type 2 diabetes mellitus with [...] diabetes mellitus with hyperglycemia (ICD-10 - E11.65) 09/01/2024 Displaced trimalleolar fracture of right lower [...] fracture with routine healing (ICD-10 - S82.851D) 10/14/2024 Displaced trimalleolar fracture of right lower leg, subsequent encounter for closed fracture with routine healing (ICD-10 - S82.851D) 10/21/2024 Displaced trimalleolar fracture of right lower leg, subsequent encounter for closed fracture with routine healing (ICD-10 - S82.851D) 11/14/2024 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) 11/04/2024 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) 10/27/2024 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) 10/28/2024 RACHNA (generalized anxiety disorder) (ICD-10 - F41.1) 11/28/2024 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) 12/16/2024 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) 12/27/2024 Chronic respiratory failure with hypoxia (ICD-10 - J96.11) 2025 Chronic respiratory failure with hypoxia (ICD-10 - J96.11) 2025 [facility] terminal (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 insulin (ICD-10 - Z79.4) 12/27/2024 superintendent terminal (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 insulin (ICD-10 - Z79.4) 11/28/2024 Chronic kidney disease, stage 3b (ICD-10 - N18.32) 12/16/2024 Chronic kidney disease, stage 3b (ICD-10 - N18.32) 11/14/2024 Chronic kidney disease, stage 3b (ICD-10 - N18.32) 10/28/2024 Restless legs syndrome (RLS) (ICD-10 - G25.81) 11/04/2024 Chronic kidney disease, stage 3b (ICD-10 - N18.32) 10/14/2024 Skin abrasion (ICD-10 - T14.8XXA) Acute/Improving Reviewed infection control measures, s/s if infection Continue gentle cleansing with warm soapy water, application of abx ointment bid and cover with bandaide as needed Will continue to monitor 10/21/2024 Skin abrasion (ICD-10 - T14.8XXA) Acute/Improving Reviewed infection control measures, s/s if infection Continue gentle cleansing with warm soapy water, apply vaseline and cover with bandaid as needed Will continue to monitor 10/27/2024 Chronic kidney disease, stage 3b (ICD-10 - N18.32) 10/07/2024 Skin abrasion (ICD-10 - T14.8XXA) Acute/Improving [...] cover with bandaide Will continue to monitor 09/08/2024 Skin abrasion (ICD-10 - T14.8XXA) Acute/Improving [...] cover with bandaide Will continue to monitor 08/30/2024 Chronic kidney disease, stage 3b (ICD-10 - N18.32) 08/23/2024 Chronic kidney disease, stage 3b (ICD-10 - N18.32) 08/16/2024 Chronic kidney disease, stage 3b (ICD-10 - N18.32) 08/08/2024 Chronic kidney disease, stage 3b (ICD-10 - N18.32) 07/22/2024 Chronic kidney disease, stage 3b (ICD-10 - N18.32) 07/28/2024 Chronic kidney disease, stage 3b (ICD-10 - N18.32) 08/02/2024 Chronic kidney disease, stage 3b (ICD-10 - N18.32) 07/07/2024 superintendent terminal (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 insulin (ICD-10 - Z79.4) 07/15/2024 Chronic kidney disease, stage 3b (ICD-10 - N18.32) 06/24/2024 superintendent terminal (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 insulin (ICD-10 - Z79.4) 03/25/2024 superintendent terminal (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 insulin (ICD-10 - Z79.4) 03/10/2024 Long-term current use of injectable noninsulin antidiabetic medication (ICD-10 - Z79.85) 04/07/2024 [facility] (current) use of insulin (ICD-10 - Z79.4) Dx added from [facility] 02/24/2024 superintendent terminal (current) use of insulin (ICD-10 - Z79.4) 02/19/2024 Recurrent UTI (urinary tract infection) (ICD-10 [...] (generalized anxiety disorder) (ICD-10 - F41.1) 02/24/2024 Major depressive disorder, recurrent episode, moderate (ICD-10 - F33.1) F41.1 RACHNA Chronic/Stable - PHQ2 completed by pcp in office today - negative - Reviewed nature of anxiety and depressive sxs - denies sxs of increased worry/sadness - Reviewed nonmedical management techniques - Continue medications as prescribed - Continue outpatient F/U with psych/prescribers and involve [facility] team as appropriate - Monitor for increased sxs of depression/anxiety and report acute changes to providers - Utilize emergency services if having sxs of SI/HI/AVH as appropriate 04/07/2024 Type 2 diabetes mellitus with diabetic neuropathy, unspecified (ICD-10 - E11.40) Dx added from [facility] 06/24/2024 Major depressive disorder, recurrent episode, moderate (ICD-10 - F33.1) F41.1 RACHNA Chronic/Stable - Reviewed nature of anxiety and depressive sxs - Reminded to schedule f/u with Angie Mccray prescriber and to f/u with new therapist in community as referred by Angie - Reviewed nonmedical management techniques - Continue medications as prescribed - Continue outpatient F/U with psych/prescribers and involve [facility] team as appropriate - Monitor for increased sxs of depression/anxiety and report acute changes to providers - Utilize emergency services if having sxs of SI/HI/AVH as appropriate 03/25/2024 Major depressive disorder, recurrent episode, moderate (ICD-10 - F33.1) F41.1 RACHNA Chronic/Stable - Reviewed nature of anxiety and depressive sxs - reports increased worry as in HPI - Reviewed nonmedical management techniques - Continue medications as prescribed - Continue outpatient F/U with psych/prescribers and involve [facility] team as appropriate - Monitor for increased sxs of depression/anxiety and report acute changes to providers - Utilize emergency services if having sxs of SI/HI/AVH as appropriate 03/10/2024 [facility] (current) use of insulin (ICD-10 - Z79.4) 07/07/2024 Major depressive disorder, recurrent episode, moderate (ICD-10 - F33.1) F41.1 RACHNA Chronic/Stable - Reviewed nature of anxiety and depressive sxs - Reminded to schedule f/u with Angie Mccray prescriber and to f/u with new therapist in community as referred by Angie - Reviewed nonmedical management techniques - Continue medications as prescribed - Continue outpatient F/U with psych/prescribers and involve [facility] team as appropriate - Monitor for increased sxs of depression/anxiety and report acute changes to providers - Utilize emergency services if having sxs of SI/HI/AVH as appropriate 07/22/2024 Morbid (severe) obesity due to excess calories (ICD-10 - E66.01) Z68.41 BMI 40.0-44.9, adult Chronic/Not Controlled - Weight gain since home from [facility] - Avoid gaining additional weight and try [...] - Continue to monitor weights with PCP 07/15/2024 Morbid (severe) obesity due to excess calories (ICD-10 - E66.01) Z68.41 BMI 40.0-44.9, adult Chronic/Not Controlled - Weight gain since home from [facility] - Avoid gaining additional weight and try [...] Controlled - Weight gain since home from [facility] - Avoid gaining additional weight and try [...] Controlled - Weight gain since home from [facility] - Avoid gaining additional weight and try [...] Controlled - Weight gain since home from [facility] - Avoid gaining additional weight and try [...] Controlled - Weight gain since home from [facility] - Avoid gaining additional weight and try [...] Controlled - Weight gain since home from [facility] - Avoid gaining additional weight and try [...] - Continue to monitor weights with PCP 09/01/2024 Major depressive disorder, recurrent episode, moderate (ICD-10 - F33.1) 09/15/2024 Major depressive disorder, recurrent episode, moderate (ICD-10 - F33.1) 09/08/2024 Major depressive disorder, recurrent episode, moderate (ICD-10 - F33.1) 09/22/2024 Major depressive disorder, recurrent episode, moderate (ICD-10 - F33.1) 09/29/2024 Major depressive disorder, recurrent episode, moderate (ICD-10 - F33.1) 10/07/2024 Major depressive disorder, recurrent episode, moderate (ICD-10 - F33.1) 10/14/2024 Major depressive disorder, recurrent episode, moderate (ICD-10 - F33.1) 10/27/2024 Seasonal allergic reaction (ICD-10 - J30.2) New/Acute Recommend management of COPD to avoid exacerbation Continue nebulizer treatments as prescribed by boiler inspector Recommend closing windows, running air purifier or air conditioner, nasal saline, warm showers at night. Try fluticasone nasal spray and loratadine 10 mg daily during allergy season Reminded to call this APC with any changes or utilize [facility] during the afterhours. Seek ED evaluation for high fever, dyspnea, chest pain, severe headache 10/21/2024 Major depressive disorder, recurrent episode, moderate (ICD-10 - F33.1) 11/04/2024 Seasonal allergic reaction (ICD-10 - J30.2) New/Acute Recommend management of COPD to avoid exacerbation Continue nebulizer treatments as prescribed by boiler inspector Recommend closing windows, running air purifier or air conditioner, nasal saline, warm showers at night. Try fluticasone nasal spray and loratadine 10 mg daily during allergy season Reminded to call this APC with any changes or utilize [facility] during the afterhours. Seek ED evaluation for high fever, dyspnea, chest pain, severe headache 10/28/2024 Extrapyramidal disorder (ICD-10 - G25.9) 12/27/2024 Long-term current use of injectable noninsulin antidiabetic medication (ICD-10 - Z79.85) 2025 Long-term current use of injectable noninsulin antidiabetic medication (ICD-10 - Z79.85) 12/27/2024 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) 2025 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) 10/14/2024 Type 2 diabetes mellitus with diabetic neuropathy, unspecified (ICD-10 - E11.40) 11.65 Uncontrolled T2DM with hyperglycemia E66.01 Obesity Z79.4 LT use of insulin Z79.85 LT use of injectable non-insulin antidiabetic me Chronic/Labile Sugars are variable based on diet - Continue check BG as ordered/directed; recommended but declines CGM - Continue medication as prescribed - [facility] - Recommend yearly eye exams, A1c - Recommend diabetic diet - offered referral to rn diabetes educator - declines - Discussed potential for end-organ damage with chronic hyperglycemia - F/U with podiatry (as needed/desired) for regular foot checks - Report any sxs of hypo- or hyperglycemia immediately - F/U with PCP/endocrine for ongoing mgmt/monitoring 10/28/2024 ALDO on CPAP (ICD-10 - G47.33) 10/21/2024 Type 2 diabetes mellitus with diabetic neuropathy, unspecified (ICD-10 - E11.40) 11.65 Uncontrolled T2DM with hyperglycemia E66.01 Obesity Z79.4 LT use of insulin Z79.85 LT use of injectable non-insulin antidiabetic me Chronic/Labile Sugars are variable based on diet - Continue check BG as ordered/directed; recommended but declines CGM - Continue medication as prescribed - [facility] - Recommend yearly eye exams, A1c - Recommend diabetic diet - offered referral to rn diabetes educator - declines - Discussed potential for end-organ damage with chronic hyperglycemia - F/U with podiatry (as needed/desired) for regular foot checks - Report any sxs of hypo- or hyperglycemia immediately - F/U with PCP/endocrine for ongoing mgmt/monitoring 10/07/2024 Type 2 diabetes mellitus with diabetic neuropathy, unspecified (ICD-10 - E11.40) 11.65 Uncontrolled T2DM with hyperglycemia E66.01 Obesity Z79.4 LT use of insulin Z79.85 LT use of injectable non-insulin antidiabetic me Chronic/Labile Sugars are variable based on diet - Continue check BG as ordered/directed; recommended but declines CGM - Continue medication as prescribed - [facility] - Recommend yearly eye exams, A1c - Recommend diabetic diet - offered referral to rn diabetes educator - declines - Discussed potential for [...] medication as prescribed - Novolog per , [facility] weekly - Recommend yearly eye exams, A1c - Recommend diabetic diet - offered referral to rn diabetes educator - declines - Discussed potential for [...] F/U with PCP/endocrine for ongoing mgmt/monitoring 08/30/2024 Body mass index [BMI] 40.0-44.9, adult (ICD-10 - Z68.41) 08/08/2024 Body mass index [BMI] 40.0-44.9, adult (ICD-10 - Z68.41) 08/16/2024 Body mass index [BMI] 40.0-44.9, adult (ICD-10 - Z68.41) 08/23/2024 Body mass index [BMI] 40.0-44.9, adult (ICD-10 - Z68.41) 08/02/2024 Body mass index [BMI] 40.0-44.9, adult (ICD-10 - Z68.41) 07/28/2024 Body mass index [BMI] 40.0-44.9, adult (ICD-10 - Z68.41) 07/22/2024 Body mass index [BMI] 40.0-44.9, adult (ICD-10 - Z68.41) 07/15/2024 Body mass index [BMI] 40.0-44.9, adult (ICD-10 - Z68.41) 07/07/2024 Mixed incontinence (ICD-10 - N39.46) 03/25/2024 Mixed incontinence (ICD-10 - N39.46) 06/24/2024 Mixed incontinence (ICD-10 - N39.46) 04/07/2024 Major depressive disorder, recurrent episode, moderate (ICD-10 - F33.1) Dx added from [facility] 02/24/2024 Mixed incontinence (ICD-10 - N39.46) 02/24/2024 Recurrent UTI (urinary tract infection) (ICD-10 [...] incontinence (ICD-10 - N39.46) Dx added from [facility] 03/25/2024 Recurrent UTI (urinary tract infection) (ICD-10 [...] will continue to monitor s/sx UTIs 07/15/2024 [facility] (current) use of insulin (ICD-10 - Z79.4) 07/22/2024 [facility] (current) use of insulin (ICD-10 - Z79.4) 07/07/2024 Recurrent UTI (urinary tract infection) (ICD-10 [...] and will continue to monitor s/sx UTIs 07/28/2024 [facility] (current) use of insulin (ICD-10 - Z79.4) 08/02/2024 superintendent terminal (current) use of insulin (ICD-10 - Z79.4) 08/08/2024 [facility] (current) use of insulin (ICD-10 - Z79.4) 08/23/2024 [facility] (current) use of insulin (ICD-10 - Z79.4) 08/16/2024 [facility] (current) use of insulin (ICD-10 - Z79.4) 08/30/2024 superintendent terminal (current) use of insulin (ICD-10 - Z79.4) 09/15/2024 Uncontrolled type 2 diabetes mellitus with hyperglycemia (ICD-10 - E11.65) 09/22/2024 Uncontrolled type 2 diabetes mellitus with hyperglycemia (ICD-10 - E11.65) 09/29/2024 Uncontrolled type 2 diabetes mellitus with hyperglycemia (ICD-10 - E11.65) 10/07/2024 Uncontrolled type 2 diabetes mellitus with hyperglycemia (ICD-10 - E11.65) 10/21/2024 Uncontrolled type 2 diabetes mellitus with hyperglycemia (ICD-10 - E11.65) 10/14/2024 Uncontrolled type 2 diabetes mellitus with hyperglycemia (ICD-10 - E11.65) 2025 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 kidney disease, or unspecified chronic kidney disease (ICD-10 - I13.0) N18.32 CKD 3b Chronic/Stable - well-controlled on current regimen - labs to monitor GFR, UACR. avoid nephrotoxic meds - Goal BP under 140/90 {130/80 if DM, CKD, HF, CVD} - Denies chest pain, STEPHENS, blurred vision or other acute cardiac complaints - Educated member on importance of medication adherence for BP control - Encouraged DASH eating plan, exercise as tolerated, moderation of EtOH consumption, weight loss if indicated, smoking cessation if indicated - Recommend measuring BP at next in-person visit and continuing every 6 months (or more frequently as needed) as long as BP remains stable - F/U with PCP/rattle leak and squeak repairer/n ephrologist for ongoing mgmt and monitoring 10/28/2024 Other chronic pain (ICD-10 - G89.29) 10/28/2024 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 Continue to f/u with PCP/Social Director routinely 10/21/2024 Hypertensive heart and chronic kidney disease with [...] by controlling BP. Continue to f/u with PCP/Social Director routinely 10/07/2024 Hypertensive heart and chronic kidney disease [...] by controlling BP. Continue to f/u with PCP/Social Director routinely 09/29/2024 Hypertensive heart and chronic kidney [...] by controlling BP. Continue to f/u with PCP/Social Director routinely 09/22/2024 Hypertensive heart and chronic kidney [...] by controlling BP. Continue to f/u with PCP/Social Director routinely 09/15/2024 Hypertensive heart and chronic kidney [...] by controlling BP. Continue to f/u with PCP/Social Director routinely 08/30/2024 Long-term current use of injectable noninsulin antidiabetic medication (ICD-10 - Z79.85) 08/08/2024 Long-term current use of injectable noninsulin antidiabetic medication (ICD-10 - Z79.85) 08/23/2024 Long-term current use of injectable noninsulin [...] (ICD-10 - G25.81) Dx added from [facility] 06/24/2024 RACHNA (generalized anxiety disorder) (ICD-10 - F41.1) 02/24/2024 RACHNA (generalized anxiety disorder) (ICD-10 - [...] diastolic (congestive) heart failure (ICD-10 - I50.32) 10/21/2024 Chronic diastolic (congestive) heart failure (ICD-10 - I50.32) 10/14/2024 Chronic diastolic (congestive) heart failure (ICD-10 - I50.32) 2025 Vitamin D deficiency, unspecified (ICD-10 - E55.9) Chronic/Stable Continue supplementaton with D3 f/u with PCP as scheduled Dietary recommendations to increase vit D Will continue to monitor 10/28/2024 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 - Use [...] PLACE ORDER FOR HOME PEDAL DEVICE THROUGH [employer] [facility] 09/15/2024 COPD (chronic obstructive pulmonary disease) (ICD-10 [...] in symptoms or worsening SOB to providers/PCP/pulm 08/30/2024 Other chronic pain (ICD-10 - G89.29) [...] joints - Will start outpatient PT at [facility] by next week. - Use [...] PLACE ORDER FOR HOME PEDAL DEVICE THROUGH [employer] [facility] 08/08/2024 Other chronic pain (ICD-10 - G89.29) [...] joints - Will start outpatient PT at [facility] by next week. - Use [...] PLACE ORDER FOR HOME PEDAL DEVICE THROUGH [facility] 08/16/2024 Other chronic pain (ICD-10 - G89.29) [...] joints - Will start outpatient PT at [facility] by next week. 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 Chronic/Stable Advised to report any fever, eye pain, acute vision changes, purulent drainage, malcolm orbital or conjuctival erythema F/u with opthalmologist as planned 04/07/2024 Extrapyramidal disorder (ICD-10 - G25.9) Dx added from [facility] 06/24/2024 Chronic dacryocystitis of bilateral lacrimal passages [...] M17.12) 09/15/2024 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) 08/30/2024 Unilateral primary osteoarthritis, left knee (ICD-10 - M17.12) 09/22/2024 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) 09/29/2024 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) 10/07/2024 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) 10/14/2024 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) 10/21/2024 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) 10/28/2024 Panlobular emphysema (ICD-10 - J43.1) 10/21/2024 MCC (current) use of insulin (ICD-10 - Z79.4) 10/14/2024 MCC (current) use of insulin (ICD-10 - Z79.4) 10/28/2024 COPD (chronic obstructive pulmonary disease) (ICD-10 - J44.9) 10/07/2024 [facility]CC (current) use of insulin (ICD-10 - Z79.4) 09/29/2024 superintendent terminal (current) use of insulin (ICD-10 - Z79.4) 09/22/2024 superintendent terminal (current) use of insulin (ICD-10 - Z79.4) 09/15/2024 superintendent terminal (current) use of insulin (ICD-10 - Z79.4) 08/30/2024 Arthritis, low back (ICD-10 - M47.819) 08/16/2024 Arthritis, low back (ICD-10 - M47.819) 08/23/2024 Arthritis, low back (ICD-10 - M47.819) 08/08/2024 Arthritis, low back (ICD-10 - M47.819) 07/07/2024 Long-term current use of injectable noninsulin antidiabetic medication (ICD-10 - Z79.85) 06/24/2024 Long-term current use of injectable noninsulin antidiabetic medication (ICD-10 - Z79.85) 04/07/2024 Recurrent UTI (urinary tract infection) (ICD-10 - N39.0) Dx added from [facility] 03/25/2024 S/P eye surgery (ICD-10 - Z98.890) 02/24/2024 S/P eye surgery (ICD-10 - Z98.890) 02/24/2024 Long-term current use of injectable noninsulin antidiabetic medication (ICD-10 - Z79.85) 03/25/2024 Long-term current use of injectable noninsulin antidiabetic medication (ICD-10 - Z79.85) 04/07/2024 COPD exacerbation (ICD-10 - J44.1) Dx added from [facility] 06/24/2024 Restless legs syndrome (RLS) (ICD-10 - [...] injectable noninsulin antidiabetic medication (ICD-10 - Z79.85) 10/21/2024 Long-term current use of injectable noninsulin antidiabetic medication (ICD-10 - Z79.85) 10/14/2024 Long-term current use of injectable noninsulin antidiabetic medication (ICD-10 - Z79.85) 10/28/2024 Chronic respiratory failure with hypoxia (ICD-10 - J96.11) 10/28/2024 Unilateral primary osteoarthritis, left knee (ICD-10 - M17.12) 10/14/2024 Chronic kidney disease, stage 3b (ICD-10 - N18.32) 10/21/2024 Chronic kidney disease, stage 3b (ICD-10 - N18.32) 10/07/2024 Chronic kidney disease, stage 3b (ICD-10 [...] M35.3) 06/24/2024 Polymyalgia rheumatica (ICD-10 - M35.3) 04/07/2024 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) Dx added from [facility] 03/25/2024 Restless legs syndrome (RLS) (ICD-10 - G25.81) Chronic/Stable - continue same meds - counseled on getting up and moving around helps the unpleasant feeling temporarily go away, physical exercise, relaxation techniques, massage - f/u PCP prn 02/24/2024 Restless legs syndrome (RLS) (ICD-10 - G25.81) Chronic/Stable - continue same meds - counseled on getting up and moving around helps the unpleasant feeling temporarily go away, physical exercise, relaxation techniques, massage - f/u PCP prn 03/25/2024 Polymyalgia rheumatica (ICD-10 - M35.3) Chronic/Stable [...] as scheduled Will continue to monitor 04/07/2024 S/P eye surgery (ICD-10 - Z98.890) Dx added from [facility] 06/24/2024 Uncontrolled type 2 diabetes mellitus with [...] due to excess calories (ICD-10 - E66.01) 10/21/2024 Morbid (severe) obesity due to excess calories (ICD-10 - E66.01) 10/14/2024 Morbid (severe) obesity due to excess calories (ICD-10 - E66.01) 10/28/2024 Polymyalgia rheumatica (ICD-10 - M35.3) 10/28/2024 Arthritis, low back (ICD-10 - M47.819) 07/07/2024 Extrapyramidal disorder (ICD-10 - G25.9) 06/24/2024 Extrapyramidal disorder (ICD-10 - G25.9) 04/07/2024 Long-term current use of injectable noninsulin antidiabetic medication (ICD-10 - Z79.85) Dx added from [facility] 04/07/2024 COVID-19 virus infection (ICD-10 - U07.1) Dx added from [facility] 06/24/2024 Panlobular emphysema (ICD-10 - J43.1) 07/07/2024 Panlobular emphysema (ICD-10 - J43.1) 10/28/2024 Chronic kidney disease, stage 3b (ICD-10 - N18.32) 10/28/2024 Recurrent UTI (urinary tract infection) (ICD-10 - N39.0) 07/07/2024 Chronic respiratory failure with hypoxia (ICD-10 - J96.11) 06/24/2024 Chronic respiratory failure with hypoxia (ICD-10 - J96.11) 04/07/2024 Dysuria (ICD-10 - R30.0) Dx added from [facility] 04/07/2024 Heart failure, unspecified (ICD-10 - I50.9) Dx added from [facility] 06/24/2024 Chronic kidney disease, stage 3b (ICD-10 - N18.32) 07/07/2024 Chronic kidney disease, stage 3b (ICD-10 - N18.32) 10/28/2024 Mixed incontinence (ICD-10 - N39.46) 10/28/2024 Displaced trimalleolar fracture of right lower leg, subsequent encounter for closed fracture with routine healing (ICD-10 - S82.851D) 06/24/2024 Dementia, unspecified, without behavioral disturbance (ICD-10 - F03.90) Chronic/Stable - Mild memory issue - member is a/o during visit; patient and family deny confusion and wandering - member requires assistance, cueing for ADL's, 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 - f/u PCP prn 07/07/2024 Dementia, unspecified, without behavioral disturbance (ICD-10 - F03.90) Chronic/Stable - Mild memory issue - member is a/o during visit; patient and family deny confusion and wandering - member requires assistance, cueing for ADL's, 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 - f/u PCP prn 04/07/2024 Panlobular emphysema (ICD-10 - J43.1) Dx added from [facility] 04/07/2024 Respiratory failure, unspecified with hypoxia (ICD-10 - J96.91) Dx added from [facility] 06/24/2024 Unilateral primary osteoarthritis, left knee (ICD-10 - M17.12) 07/07/2024 Unilateral primary osteoarthritis, left knee (ICD-10 - M17.12) 10/28/2024 MCC (current) use of insulin (ICD-10 - Z79.4) 10/28/2024 Long-term current use of injectable noninsulin antidiabetic medication (ICD-10 - Z79.85) 07/07/2024 Displaced trimalleolar fracture of right lower leg, subsequent encounter for closed fracture with routine healing (ICD-10 - S82.851D) Subacute/Improving Appropriate healing per Ortho - continue up routinely Wearing a walking boot, ambulating with assistance and use of walker Avoid falls, report changes in pain or mobility Continue home PT - [facility] Continue tylenol as needed 06/24/2024 Displaced trimalleolar fracture of right lower leg, subsequent encounter for closed fracture with routine healing (ICD-10 - S82.851D) Subacute/Improving Appropriate healing per Ortho - continue up routinely Wearing a walking boot, ambulating with assistance and use of walker Avoid falls, report changes in pain or mobility Continue home PT - [facility] Continue tylenol as needed 04/07/2024 Chronic respiratory failure with hypoxia (ICD-10 - J96.11) Dx added from [facility] 04/07/2024 Chronic kidney disease, stage 3b (ICD-10 - N18.32) Dx added from [facility] 06/24/2024 Arthritis, low back (ICD-10 - M47.819) 07/07/2024 Arthritis, low back (ICD-10 - M47.819) 10/28/2024 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) 10/28/2024 Morbid (severe) obesity due to excess calories (ICD-10 - E66.01) 07/07/2024 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 Patient verbalizes understanding. 10/14/2024 Other Of Note: sukhdev reyes is taking all medications as prescribed although they appear unknow under the medication tab because meds were reconciled in a future note. 10/21/2024 Other Of Note: Medications are reconciled this visit. They appear unknown in the medication section of this note because they were verified in a future note. 11/14/2024 Other Plan Of Treatment No Information Insurance Providers Payer Name Payer Address Payer Phone Subscriber Number Group Number Insured Name Patient Relationship to Insured Coverage Start Date Coverage End Date [facility] [employer] ([id number]) [address] [place] [address] [id number] AyushMine Self - patient is the insured 3 9 Medical (General) History Medical History History ICD Code Chest pain (resolved 09/26/2023) Extrapyramidal disorder G25.9 Major depressive disorder, recurrent epi sode, moderate F33.1 Urinary incontinence, unspecified type R 32 Acute cystitis without hematuria N30.00 COPD exacerbation (resolved 07/14/2024) undefined COVID-19 virus infection (resolved 07/14) Surgical History Surgery Date(Month/Year) [facility] [place] ORIF 04/2024 Hospitalization History Reason Date(Month/Year) [facility] ED - Hyperglycemia 2024 [facility] ED- COPD exac, ?UTI 12/23 [facility] [place] - COPD exac 06/26/2024 [facility] for STR following ankle fracture 05/2024-06/22/2024 [facility] Right bi-malleolar fracture 04/2024 [facility] [place] - ? Sepsis (ruled out) 11/28- [facility]- COPD exac, UTI 11/17-04/05 [facility] for dysuria left AMA d/t long wait time 04/03/2024 [facility] [place] ED bronchitis 02/13/24 [facility] [place] [facility] ED chest and back pain (ACS ruled ou t) 12/04/23 [facility] [place] ED chest and back pain (ACS ruled ou t) 12/02/23
--- OUTSIDE RECORDS SUMMARY | 2025-01-27 13:55 | XMS_ITS | Data Portability ---
Author Organization [place] - [place] Rogers [facility], [facility] Address [address] [place] [address] Care Team Providers Care Silver [employer]are Assembler Name Role Phone IVAN DUMONT Primary Care Provider [phone] Assessment No assessment recorded. Plan of Treatment Reminders Order Date Submit Date Provider Last Modified By Organization Details Last Modified Time Details Appointments None recorded. Lab None recorded. Referral physical therapist referral - DIAGNOSIS: Surgery: ORIF bimalleolar component of trimalleola r fracture right ankle Date of surgery: 04/10/2024 Surgeon: Dr. Manohar MORALES AND TX: advance to WBAT RLE in boot. Transition from boot to ASO brace when feeling confident/s table. ROM, strengtheni ng, gait training, propriocept ion. FREQUENCY: 2-3 TIMES/WEEK DURATION: 6-8 WEEKS 2023 024 [facility], [address] [place] [address], [address], 5 18:51:39 Procedures None recorded. Surgeries None recorded. Imaging XR, ankle, 3 or more view - duplicate 2024 025 [facility], [address], [place], [address], 5 16:00:50 XR, ankle, 3 or more view - 304 right ankle 3v 2023 024 [facility], [address], [place], [address], 5 18:51:39 XR, ankle, 3 or more view - room 308 right ankle post op 3v ankle NWB 2023 024 [facility], [address], [address], [place], [address], 4 12:27:15 XR, ankle, 3 or more view - room 30 right ankle post op ROOM 307 2023 024 [facility], [address], [address], [place], [address], 4 14:02:27 Medication Orders gabapentin 300 mg capsule 2024 025 [facility][id number], [id number] , [place], [address], 5 15:14:00 Patient TargetsNo targets recorded. Patient InstructionsNo instructions recorded. Reason for Referral Physical Therapist Referral for Closed trimalleolar fracture DIAGNOSIS: Surgery: ORIF bimalleolar component of trimalleolar fracture right ankle Date of surgery: 04/10/2024Surgeon: Dr. Vital AND TX: advance to WBAT RLE in boot. Transition from boot to ASO brace when feeling confident/stable. ROM, strengthening, gait training, proprioception. FREQUENCY: 2-3 TIMES/WEEKDURATION: 6-8 WEEKS Referring Physician: Ivy Carpenter, Orthopedic Surgery, [id number] Encounter Date: 07/12/2024 Results Created Date Observation Date Name Description Value Unit Range Abnormal Flag Note LastModifiedBy Organization Detail LastModifiedTime 04/28/20 24 04/28/2024 XR, ankle , 3 or more view [email or web address] ?Encry pted=s hAaTro YD8dLq bEUv6g %2BXZw aYqtaq 0bqfl% 2Fg9IQ a4ajBk vP9nXo QUaueC m3YtLR FvZlgJ JJ8mAn HZtai3 8u4574 AC0Kqa 3qNVaK mKiQtr MwF INTERFACE [facility] [address], [place], [address], 04/28/2024 15:09:57 04/28/20 24 04/28/2024 XR, ankle , 3 or more view [email or web address] ?Encry pted=s hAaTro YD8dLq bEUv6g %2BXZw aYqtaq 0bqfl% 2Fg9IQ a4ajBk vP9nXo QUaueC m3YtLR FvZl [facility] HZtai3 6o2008 AC0Kqa 3qNVaK mKiQtr MwF INTERFACE [facility] [address], [place], [address], 04/28/2024 15:09:59 05/31/20 24 05/31/2024 XR, ankle , 3 or more view [email or web address] ?Encry pted=s hAaTro YD8dLq bEUv6g %2BXZw aYqtaq 0bqfl% 2Fg9IQ a4ajBk vP9nXo QUaueC m3YtLR FvZl [place] HZtai3 8l4071 AC0Kqa X2EVqq nKiQtr MwF INTERFACE [facility] [address] [facility] [address], [place], [address], 05/31/2024 10:39:38 05/31/20 24 05/31/2024 XR, ankle , 3 or more view [email or web address] ?Encry pted=s hAaTro YD8dLq bEUv6g %2BXZw aYqtaq 0bqfl% 2Fg9IQ a4ajBk vP9nXo QUaueC m3YtLR FvZlgJ JJ8mAn HZtai3 0n6866 AC0Kqa X2EVqq nKiQtr MwF INTERFACE [facility] [address], [place], [address], 05/31/2024 10:39:40 07/12/20 24 07/12/2024 XR, ankle , 3 or more view [email or web address] ?Encry pted=s hAaTro YD8dLq bEUv6g %2BXZw aYqtaq 0bqfl% 2Fg9IQ a4ajBk vP9nXo QUaueC m3YtLR FvZlgJ JJ8mAn HZtai3 1j4026 AC0Kqb nWBVaS mKiQtr MwF INTERFACE [facility] [address], [place], [address], 07/12/2024 14:00:39 07/12/20 24 07/12/2024 XR, ankle , 3 or more view [email or web address] ?Encry pted=s hAaTro YD8dLq bEUv6g %2BXZw aYqtaq 0bqfl% 2Fg9IQ a4ajBk vP9nXo QUaueC m3YtLR FvZlgJ JJ8mAn HZtai3 5n8238 AC0Kqb nWBVaS mKiQtr MwF INTERFACE [facility] [address], [place], [address], 07/12/2024 14:00:42 08/30/19 25 08/30/2024 XR, ankle , 3 or more view [email or web address] ?Encry pted=s hAaTro YD8dLq bEUv6g %2BXZw aYqtaq 0bqfl% 2Fg9IQ a4ajBk vP9nXo QUaueC m3YtLR FvZlgJ JJ8mAn HZtai3 2b3912 AC0Kqb X2CVqW gKiQtr MwF INTERFACE [facility] [address], [place], [address], 08/30/2024 14:13:09 08/30/19 25 08/30/2024 XR, ankle , 3 or more view [email or web address] ?Encry pted=s Teddy YD8dLq bEUv6g %2BXZw aYqtaq 0bqfl% 2Fg9IQ a4ajBk vP9nXo QUaueC m3YtLR FvZlgJ JJ8mAn HZtai3 6s9845 AC0Kqb X2CVqW gKiQtr MwF INTERFACE [facility] [address], [place], [address], 08/30/2024 14:13:12 Result Notes Documentation Provider Name and Address Organization Details Recorded Time Xr, Ankle, 3 Or More View : [email or web address] Encrypted=hsKvRwfSB0vJrpU Uv6g%1NMXmrIeaul9bzzo%2Fg 2PZb0jtDpgP3wSmHObveVn9Sv IBPxDlbTRU8rMeJYykh67s841 6TD9Kpa8dTHeOxOpTlpJfK Not Available [facility] 04/28/2024 15:09: 57 Xr, Ankle, 3 Or More View : [email or web address] Encrypted=tjFeUfxWA9qFilY Uv6g%8CIEbkHrmee0zaar%2Fg 0PPq6bcLxrY4nXnESiwfTt9Kc QLLoQpnTQH1oEvIGbfk59k997 4HB4Mob8vBCiZmUaYjbUgF Not Available [facility] 04/28/2024 15:10: 00 Xr, Ankle, 3 Or More View : [email or web address]? Encrypted=ayYzJdmGO9zGhdK Uv6g%3KNMmjBpezu4xenw%2Fg 7DYh0xcGhbC7eYgVZufePv5Ag EBZlPraBKA0wNaLAkzg06p352 6QC5RasI4QTnihNbIpvQjW Not Available [facility] 05/31/2024 10:39: 39 Xr, Ankle, 3 Or More View : [email or web address] Encrypted=oiXzNhjOG4lIymG Uv6g%3IIMioMsgri8xmcp%2Fg 0TRy6hbOpyH4tLvFJrpnHh2Hs LDMrJgaOED1qCcZGqqo05t235 0AF1YixM1EOfnmFcXazFfW Not Available [facility] 05/31/2024 10:39: 41 Xr, Ankle, 3 Or More View : [email or web address] Encrypted=giJnMmuCT1gDtlV Uv6g%1TQZzqOqvxw3gldz%2Fg 8MJk0biQmqC1jKlTLpdgQr2Eg QFXzUndQNL4kMrRBwfa17a273 2YX9VvkbLRLjVnBxGijJhU Not Available [facility] 07/12/2024 14:00: 40 Xr, Ankle, 3 Or More View : [email or web address] Encrypted=kxUwTmvWG3mBksA Uv6g%8QMQhuEunht9hhhd%2Fg 1FRd1xvCbnA7yWcUNyacPd3Vq JKZaEixTBQ3pGlTAxnl20e706 8YE6KgebFCTqSkAsVjxBaP Not Available [facility] 07/12/2024 14:00: 42 Xr, Ankle, 3 Or More View : [email or web address] Encrypted=vnPnKdlVB7nBvjF Uv6g%0BFSllRybue0oury%2Fg 9NZy8reItyG6jYtKHdlhTg0Pe YMVuLrgBFE0aWsOWafi39i141 3FO4SkhT7ATxZgSdXxmPyE Not Available [facility] 08/30/2024 14:13: 11 Xr, Ankle, 3 Or More View : [email or web address] Encrypted=ggEeCkfWB6vJunG Uv6g%1IIOnsJcjtx6kvmd%2Fg 8NXl8biDprF4xFhQEsvaOn3Xg MQIxMugEKG6eEiRLujp71u925 6YZ2OvoU1GJnTgNgKezPlG Not Available [facility] 08/30/2024 14:13: 12 Medical Equipment None Reported. Allergies Allergen ID Allergen Name Allergen Category Reaction Reaction Severity Criticality Documentation Date Start Date Code Code System Note Provider Name and Address Organization Details Recorded Time 985120 adhesive tape environme nt,medica tion Not available Not available Not available 04/28/2024 01274 UNK JULIANNEYPBARBARA asher [facility] 14:40:58 640739 Tigan medicatio n Not available Not available Not available 04/28/2024 32015 8 RxNorm SUMAYA asher [facility] 14:41:23 Medications Name Sig Start Date Stop Date Status Note LastModified by Organization Details LastModified Time cyclobenzapr ine 10 mg tablet TAKE 1 TABLET BY MOUTH 3 TIMES A DAY NEEDED FOR MUSCLE SPASM FOR 7 DAYS active Not Available Not Available No t Available atorvastatin 80 mg tablet TAKE 1 TABLET BY MOUTH EVERY DAY active Not Available Not Available No t Available prednisone 10 mg tablet TAKE 2 TABLETS ONCE A DAY FOR 5 DAYS, 1 TABLET ONCE A DAY FOR 5 DAYS ORALLY 10 DAYS active Not Available Not Available No t Available atorvastatin 20 mg tablet active Not Available Not Available Not Available ipratropium 0.5 mg-albuterol 3 mg (2.5 mg base)/3 mL nebulization soln 3 ML INHALED 4 TIMES A DAY FOR SEVERE COPD FOR 30 DAYS active Not Available Not Available No t Available albuterol sulfate 2.5 mg/3 mL (0.083 %) solution for nebulization active Not Available Not Available Not Available trazodone 50 mg tablet active Not Available Not Available No t Available cefpodoxime 200 mg tablet TAKE 1 TABLET BY MOUTH EVERY 12 HOURS FOR 3 DAYS active Not Available Not Available N ot Available azithromycin 250 mg tablet DIRECTED ORALLY 5 DAYS active Not Available Not Available No t Available sulfamethoxa zole 400 mg-trimethop rim 80 mg tablet TAKE 1 TABLET BY MOUTH TWICE A DAY FOR 3 DAYS active Not Available Not Available No t Available citalopram 10 mg tablet TAKE 1 TABLET BY MOUTH EVERY DAY active Not Available Not Available No t Available prochlorpera zine maleate 5 mg tablet active Not Available Not Available Not Available prednisone 20 mg tablet TAKE 2 TABLETS BY MOUTH DAILY FOR 5 DAYS active Not Available Not Available N ot Available torsemide 10 mg tablet active Not Available Not Available No t Available metronidazol e 500 mg tablet TAKE 1 TABLET BY MOUTH THREE TIMES A DAY FOR 10 DAYS active Not Available Not Available Not Available amlodipine 5 mg tablet active Not Available Not Available No t Available tramadol 50 mg tablet active Not Available Not Available No t Available pantoprazole 20 mg tablet,delay ed release TAKE 1 TABLET BY MOUTH AT BEDTIME FOR 4 WEEKS active Not Available Not Available No t Available pramipexole 0.5 mg tablet TAKE 1 TABLET BY MOUTH THREE TIMES A DAY FOR 30 DAYS active Not Available Not Available Not Available oxycodone-ac etaminophen 5 mg-325 mg tablet TAKE 1 TAB ORALLY 3 TIMES A DAY NEEDED FOR PAIN FOR 7 DAYS active Not Available Not Available N ot Available amoxicillin 875 mg tablet TAKE 1 TABLET BY MOUTH TWICE A DAY FOR 7 DAYS active Not Available Not Available No t Available citalopram 20 mg tablet active Not Available Not Available Not Available trazodone 100 mg tablet TAKE 2 TABLETS BY MOUTH AT BEDTIME NEEDED FOR INSOMNIA active Not Available Not Available No t Available OneTouch Ultra Test strips USE TO CHECK BLOOD SUGAR 3 TIMES A DAY NEEDED active Not Available Not Available No t Available benzonatate 100 mg capsule TAKE 1 CAPSULE ORALLY 3 TIMES A DAY NEEDED FOR COUGH active Not Available Not Available No t Available ropinirole 2 mg tablet TAKE 1 TABLET BY MOUTH TWICE A DAY FOR 90 DAYS active Not Available Not Available No t Available cephalexin 500 mg capsule TAKE 1 CAPSULE BY MOUTH TWICE A DAY active Not Available Not Available No t Available trazodone 150 mg tablet active Not Available Not Available Not Available gabapentin 300 mg capsule TAKE 1 CAPSULE BY MOUTH TWICE A DAY FOR 30 DAYS active Not Available Not Available No t Available budesonide 0.5 mg/2 mL suspension for nebulization 0.5 MG (2 ML) INHALED 2 TIMES A DAY FOR SEVERE COPD FOR 30 DAYS active Not Available Not Available Not Available montelukast 10 mg tablet active Not Available Not Available Not Available lisinopril 5 mg tablet active Not Available Not Available No t Available furosemide 20 mg tablet active Not Available Not Available Not Available gabapentin 100 mg capsule active Not Available Not Available Not Available ibuprofen 600 mg tablet TAKE 1 TABLET BY MOUTH EVERY 6 HOURS NEEDED FOR FEVER OR PAIN active Not Available Not Available No t Available albuterol sulfate HFA 90 mcg/actuatio n aerosol inhaler INHALE 2 PUFFS 4 TIMES A DAY NEEDED FOR WHEEZING active Not Available Not Available No t Available fluticasone propionate 50 mcg/actuatio n nasal spray,suspen catherine active Not Available Not Available Not Available oxycodone 5 mg tablet TAKE 1 TABLET BY MOUTH EVERY 6 HOURS NEEDED FOR SEVERE PAIN (SCALE SCORE 7-10). active Not Available Not Available No t Available hydroxyzine pamoate 25 mg capsule TAKE 1 CAPSULE BY MOUTH EVERY DAY AT BEDTIME NEEDED active Not Available Not Available No t Available ertapenem 1 gram solution for injection active Not Available Not Available No t Available azithromycin 500 mg tablet TAKE 1 TABLET BY MOUTH EVERY DAY active Not Available Not Available No t Available insulin aspart (U-100) 100 unit/mL (3 mL) subcutaneous pen PLEASE SEE ATTACHED FOR DETAILED DIRECTIONS active Not Available Not Available N ot Available moxifloxacin 0.5 % eye drops INSTILL 1 DROP INTO BOTH EYES FOUR TIMES A DAY USE FOR ONE WEEK THEN STOP active Not Available Not Available No t Available bupropion HCl XL 150 mg 24 hr tablet, extended release TAKE 1 TABLET BY MOUTH EVERY DAY IN THE MORNING active Not Available Not Available No t Available Spiriva with HandiHaler 18 mcg and inhalation capsules active Not Available Not Available Not Available nitrofuranto in monohydrate/ macrocrystal s 100 mg capsule TAKE 1 CAPSULE BY MOUTH EVERY 12 HOURS WITH FOOD FOR 5 DAYS active Not Available Not Available N ot Available BD Ultra-Fine Mini Pen Needle 31 gauge x 3/16 USE TO INJECT 4 TIMES A DAY active Not Available Not Available Not Available Levemir U-100 Insulin 100 unit/mL subcutaneous solution active Not Available Not Available Not Available Levemir FlexPen 100 unit/mL (3 mL) solution subcutaneous insulin pen FOR 90 DAYS INJECT 15 UNITS SUBCUTANEOU SLY IN AM, AND 30 UNITS AT BED TIME active Not Available Not Available No t Available Lantus Solostar U-100 Insulin 100 unit/mL (3 mL) subcutaneous pen active Not Available Not Available Not Available Trulicity 1.5 mg/0.5 mL subcutaneous pen injector active Not Available Not Available Not Available Vitals Date Recorded Body height Provider Name an d Address Organization Details Last Updated DateTime 08/30/2024 152.4 cm LOPEZ EUCEDA [facility] 08/30/2024 14:05:08 Date Recorded Body height Provider Name an d Address Organization Details Last Updated DateTime 04/28/2024 152.4 cm SREYPWADEPastor LAND [facility] 04/28/2024 14:40:26 Date Recorded Body height Provider Name an d Address Organization Details Last Updated DateTime 05/31/2024 152.4 cm Milagro haile [facility] 05/31/2024 10:42:48 Date Recorded Body height Provider Name an d Address Organization Details Last Updated DateTime 07/12/2024 152.4 cm Kelly winters [facility] 07/12/2024 13:48:04 Social History Question Answer Notes LastModified by Organizat ion Details LastModified Time Tobacco Smoking Status Unknown If Ever Smoked SREYPISEPastor LAND null, [facility] 04/28/2024 14:40:37 What Is Your Relationship Status? Unknown snop Information not available 04/28/2024 Sex: Unknown Functional Status None recorded. Mental Status None recorded. Family History Nothing Reported. Medical History No medical history recorded. Gynecological HistoryNo gynecological history recorded. Obstetrics History GPAL:G 0 P 0 0 0 0 Past Encounters Encounter ID Performer Location Encounter Start Date Encounter Closed Date Diagnosis/Indication Diagnosis SNOMED-CT Code Diagnosis ICD10 Code Diagnosis Note [id number] Ivy Carpenter CNP [facility] [address] [place] [address] 04/28/2024 14:06:43 05/23/2024 14:02:27 Closed trimalleolar fracture 5957117 S82.851D Postoperative visit 1836 41565 Z48.89 [id number] Ivy Carpenter CNP [facility] [address] [place] [address] 05/31/2024 09:30:42 06/29/2024 12:27:15 Closed trimalleolar fracture 5333767 S82.851D Postoperative visit 1836 55613 Z48.89 [id number] Ivy Carpenter, ADAN [facility] [address] [place] [address] 07/12/2024 13:17:43 07/26/2024 18:51:39 Postoperative visit 024530956 Z48.89 Closed tri malleolar fracture 6941154 S82.851D [id number] Ivy Carpenter, ADAN STARR - [facility] [address] [place] [address] 08/30/2024 13:52:29 09/15/2024 16:00:50 Postoperative visit [id number] Z48.89 Closed tri malleolar fracture 8292400 S82.851D Health Concerns Section Related Observation LastModified by Organization Detai ls LastModified Time None Recorded Concern Status LastModified by Organization Details LastModified Time None Recorded Advance Directives Directive None Recorded Payers Insurance Date Sequence Insurance Name Policy Number Policy Wesley Covered Member ID Wesley Member ID Guarantor Name 12/24/2024 1 [facility] - DOS ON OR AFTER 2022 - DUAL ELIGIBLE - [employer] OPTIONS AND ONE [employer] (MEDICARE REPLACEMENT/ADV ANTAGE - HMO) Mine Peacock [id number] Mine Peacock Notes Date Note Type Note Provider Name and Address Organization Details Recorded Time 04/28/2024 text/html I am seeing the patient today under the supervision of Dr. Pepper who was available but who did not see the patient. Surgery: ORIF bimalleolar component of trimalleolar fracture right ankleDate of surgery: 04/10/2024Surgeon: Dr. Villela HPI: 74-year-old woman presents status post above surgery. Patient presents on a stretcher with EMS accompanied by family. She is currently staying at [facility] for rehab. She reports pain is tolerable. She has difficulty with ambulation due to her weightbearing restrictions. She is working with physical therapy using walker and wheelchair, compliant with touchdown weightbearing right leg. Denies calf pain. Has some numbness and tingling about the ankle. Past family, medical, social history and review of symptoms have been reviewed, updated, and it is located in the patient's chart. MSK: examination of the right ankle and foot- inspection:---- skin -sutures and stephanie removed, Steri-Strips placed. Surgical incisions benign without evidence of infection---- edema - none---- ecchymosis - none---- deformity - none- ROM:---- Ankle: full ROM in all planes against gravity without discomfort---- demonstrated knee flexion extension and toes- Palpation:---- tenderness - none--- Calves supple and nontender-Vascularity ---- 2+ pedal pulse- Sensation--- positive sensation to touch IMAGING: X-rays ordered, obtained, and independently reviewed at [facility] today. 3 views right ankle reveal surgical hardware in appropriate position without displacement or failure. Fracture pieces are well aligned. IMPRESSION: 74-year-old woman status post ORIF bimalleolar component of trimalleolar fracture right ankle 04/10/[address] Villela, recovering well PLAN: Findings and situation discussed with patient and family- TDWB RLE. Per Dr. Villela's op note, consider weightbearing restrictions for 12 weeks due to her diabetes. Should still participate in PT/OT to maintain strength and ROM. Consider WBAT RLE at next vist if bony callous on x ray-Plan to transition to tall boot TDWB RLE. Maintain touchdown weightbearing restrictions right leg. Since she is at facility, we cannot give her boot today, so we will place into a splint and the facility can give her a tall boot- DVT prophylaxis aspirin 81 mg twice daily for for 6-8 weeks postop.- Steri-Strips will fall off on their own in 10-14 days. Showering okay but no submerging in water. Reviewed signs and symptoms of infection and to call for concerns.- Tight glycemic control to prevent infection and promote healing. Good nutritional intake and vitamins. FOLLOW UP: 4 weeks Speech recognition podiatrist software was used to create portions of this document. An attempt at proofreading has been made to minimize errors. Please call for corrections. Ivy Carpenter, BACKUP ADMINISTRATOR [address] [facility], [place], [address], [facility] 04/28/2024 15:40:53 05/31/2024 text/html I am seeing the patient today under the supervision of Dr. Villela who was available but who did not see the patient. Surgery: ORIF bimalleolar component of trimalleolar fracture right ankleDate of surgery: 04/10/2024Surgeon: Dr. Villela HPI: 74-year-old woman presents status post above surgery. Patient presents in wheelchair accompanied by family. She is currently staying at [facility] for rehab. She reports pain is tolerable. They tried weaning her to tramadol but did not help pain. She has difficulty with ambulation due to her weightbearing restrictions. She is working with physical therapy using walker and wheelchair, compliant with touchdown weightbearing right leg. She has the tall boot, but rehab did not have her using it. Unsure why. Denies calf pain. Has some numbness and tingling about the dorsal foot, improving Past family, medical, social history and review of symptoms have been reviewed, updated, and it is located in the patient's chart. MSK: examination of the right ankle and foot- inspection:---- skin - Surgical incisions benign without evidence of infection. dry skin.---- edema - none---- ecchymosis - none---- deformity - none- ROM:---- Ankle: demonstrated ankle ROM in 4 planes, stiff end points--- ankle stable to anterior drawer. no pain with passive ROM---- demonstrated knee flexion/extension and toes- Palpation:---- tenderness - none--- Calves supple and nontender-Vascularity ---- 2+ pedal pulse- Sensation--- positive sensation to touch IMAGING: X-rays ordered, obtained, and independently reviewed at [facility] today. 3 views right ankle reveal surgical hardware in appropriate position without displacement or failure. Fracture pieces are well aligned. Some bony callous compared to previous films. IMPRESSION: 74-year-old woman status post ORIF bimalleolar component of trimalleolar fracture right ankle 04/10/[address] Villela, recovering well PLAN: Findings and situation discussed with patient and family. recommendations to rehab- TDWB RLE. Per Dr. Villela's op note, consider weightbearing restrictions for 12 weeks due to her diabetes. Should still participate in PT/OT to maintain strength and ROM. Likely advance to WBAT RLE at next vist if bony callous on x ray- Tall boot TDWB RLE. Maintain touchdown weightbearing restrictions right leg.- Tall boot when OOB. Remove boot at rest and work on ROM ankle/foot.- DVT prophylaxis aspirin 81 mg twice daily for for 6-8 weeks postop, or until ambulatory- Tight glycemic control to prevent infection and promote healing. Good nutritional intake and vitamins.- Pain meds per facility. Wean off narcotics. FOLLOW UP: 6 weeks Speech recognition podiatrist software was used to create portions of this document. An attempt at proofreading has been made to minimize errors. Please call for corrections. Ivy Carpenter, BACKUP ADMINISTRATOR [address], [place], [address], [facility] 05/31/2024 12:12:57 07/12/2024 text/html I am seeing the patient today under the supervision of Dr. Munson who was available but who did not see the patient. Surgery: ORIF bimalleolar component of trimalleolar fracture right ankleDate of surgery: 04/10/2024Surgeon: Dr. Villela HPI: 74-year-old woman presents status post above surgery. Patient presents in wheelchair accompanied by family. Since last encounter, she was discharged from [facility] rehab. She reports pain is tolerable. They tried weaning her to tramadol but did not help pain. Today, she reports ambulating with and without the tall boot on the right despite weightbearing restrictions. Has been working on her ankle ROM and with physical therapy in- home. Past family, medical, social history and review of symptoms have been reviewed, updated, and it is located in the patient's chart. MSK: examination of the right ankle and foot- inspection:---- skin - Surgical incisions healed well, benign without evidence of infection.---- edema - none---- ecchymosis - none---- deformity - none- ROM:---- Ankle: demonstrated ankle ROM in 4 planes, stiffness with inversion eversion---- demonstrated knee flexion/extension and toes- Palpation:---- tenderness - none--- Calves supple and nontender-Vascularity ---- 2+ pedal pulse- Sensation--- positive sensation to touch IMAGING: X-rays ordered, obtained, and independently reviewed at [facility] today. 3 views right ankle reveal surgical hardware in appropriate position without displacement or failure. Fracture pieces are well aligned. Some bony callous compared to previous films. IMPRESSION: 74-year-old woman status post ORIF bimalleolar component of trimalleolar fracture right ankle 04/10/[address] Vilella, recovering well PLAN: Findings and situation discussed with patient and family. recommendations to rehab- advance to WBAT RLE. She has already walked on it. tall boot should be on with weightbearing- ASO brace given today, can transition from boot to brace with physical therapy- no narcotics this far out from surgery. recommend OTC methods. educated on elevation and ice due to ankle pain/swelling with weightbearing and dependent position- script for out patient physical therapy FOLLOW UP: 8 weeks Speech recognition podiatrist software was used to create portions of this document. An attempt at proofreading has been made to minimize errors. Please call for corrections. Ivy Carpenter, BACKUP ADMINISTRATOR [address], [place], [address], [facility] - [facility] 07/12/2024 15:21:15 08/30/2024 text/html I am seeing the patient today under the supervision of Dr. Monroe who was available but who did not see the patient. Surgery: ORIF bimalleolar component of trimalleolar fracture right ankleDate of surgery: 04/10/2024Surgeon: Dr. Villela HPI: 74-year-old woman presents status post above surgery. Patient presents in wheelchair accompanied by family. She reports pain is bothersome but tolerable. Ran out of gabapentin. Starts outpatient physical therapy soon. Does not like the ASO brace. Denies parethesias. Past family, medical, social history and review of symptoms have been reviewed, updated, and it is located in the patient's chart. MSK: examination of the right ankle and foot- inspection:---- skin - Surgical incisions healed well, benign without evidence of infection.---- edema - trace ankle---- ecchymosis - none---- deformity - none- ROM:---- Ankle: demonstrated ankle ROM in 4 planes---- demonstrated knee flexion/extension and toes- Palpation:---- tenderness - none--- Calves supple and nontender-Vascularity ---- 2+ pedal pulse- Sensation--- positive sensation to touch IMAGING: X-rays ordered, obtained, and independently reviewed at [facility] today. 3 views right ankle reveal surgical hardware in appropriate position without displacement or failure. Fracture pieces are well aligned and appear healed. IMPRESSION: 74-year-old woman status post ORIF bimalleolar component of trimalleolar fracture right ankle 04/10/[address] Villela, recovering well PLAN: Findings and situation discussed with patient and family.- WBAT RLE. ASO brace- new ASO script today- start physical therapy as scheduled- refilled Gabapentin 300mg TID which was helpful- will make f/u with Dr. Villela, since she has not seen him post op yet. FOLLOW UP: 3 months Speech recognition podiatrist software was used to create portions of this document. An attempt at proofreading has been made to minimize errors. Please call for corrections. Ivy Carpenter, BACKUP ADMINISTRATOR [address], [place], [address], [place] - [facility] 08/30/2024 17:03:12 OBGyn Episode No OBEpisode recorded.
--- OUTSIDE RECORDS SUMMARY | 2025-01-27 13:55 | XMS_ITS | Clinical Summary ---
Author Organization [facility] Address [address] [place] [address] Phone Care Team Providers Care Concrete Truck Driver Name Role Phone Shelbi Perez MD Primary Care Provider [phone] Allergies Active Allergy Reactions Criticality Noted Date Comments Adhesive Tape 08/12/2021 Other reaction(s): skin irritation Fluticasone-Sodium Chloride Other (see comments) 08/12/2021 Trimethobenzamide 07/09/2021 Other reaction(s): GI s/s Medications acetaminophen (TYLENOL) 500 MG tablet Active Albuterol Sulfate 108 (90 Base) MCG/ACT aerosol powder 1 puff by Other route Active Aclidinium [place] (TUDORZA PRESSAIR IN) Inhale 4 Active insulin [...] MINI PEN NEEDLES 31G X 5 MM [facility] USE TO ADMINISTER INSULIN TWICE DAILY 2 [...] Vaccine: 50+ Years (2 of 2 - PPSV23, PCV20, or PCV21) 04/07/2018 02/10/2018, 08/12/2015, 06/10/2015, Additional history exists Diabetes: Hemoglobin A1C 08/13/2020 Diabetes: Ophthalmology Exam 08/13/2020 Diabetes: Pedal Pulse Checked 08/13/2020 Diabetes: Sensory Foot Exam 08/13/2020 Diabetes: Visual Foot Exam 08/13/2020 Influenza Vaccine (#1) 2025 03/13/2021, 2017 Pneumococcal Vaccine: Peds (0 to 5 Years) and At-Risk Patients (6 to 49 Years) Discontinued 02/10/2018, 08/12/2015, 06/10/2015, Additional history exists Hepatitis B Vaccine Aged Out No longe r eligible based on patient's age to complete this topic Insurance [place] [employer] ([id number]) [place] [id number]) Care Teams Concrete Truck Driver Relationship Specialty Start Date End Date Shelbi Perez MD [facility] [place] [address] PCP - General Internal Medicine 09/18/21
[2025-01-27 13:57] VITALS: BP 150/76; PULSE 94; O2SAT 92
== END 2025-01-27 15:10 | disposition home or self-care (01) ==
LOC: HO.HMCC 13:52
PROVIDERS: PCP Internal Medicine; Visit Provider Internal Medicine
DX: E11.40 Type 2 diabetes mellitus with diabetic neuropathy, unspecified (principal); N18.31 Chronic kidney disease, stage 3a; Z79.4 Long term (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 insulin; N39.46 Mixed incontinence; E78.9 Disorder of lipoprotein metabolism, unspecified; D63.1 Anemia in chronic kidney disease; K21.9 Gastro-esophageal reflux disease without esophagitis; G25.81 Restless legs syndrome; Z91.09 Other allergy status, other than to drugs and biological substances; F41.1 Generalized anxiety disorder

== ENCOUNTER 2025-01-27 13:51 | Outpatient (REF) | payer OTHER, SELFPAY | END 2025-01-27 13:52 | disposition home or self-care (01) | LOC: HO.HMGCLDS 13:51 | PROVIDERS: PCP Internal Medicine; Visit Provider Internal Medicine | DX: N39.46 Mixed incontinence (principal); E10.22 Type 1 diabetes mellitus with diabetic chronic kidney disease; N18.31 Chronic kidney disease, stage 3a; D63.1 Anemia in chronic kidney disease; E78.9 Disorder of lipoprotein metabolism, unspecified; E10.40 Type 1 diabetes mellitus with diabetic neuropathy, unspecified; K21.9 Gastro-esophageal reflux disease without esophagitis; G25.81 Restless legs syndrome; F41.1 Generalized anxiety disorder; J98.4 Other disorders of lung; J30.89 Other allergic rhinitis; R79.89 Other specified abnormal findings of blood chemistry; Z79.4 Long term (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 insulin; Z79.899 Other long term (current) drug therapy; Z91.09 Other allergy status, other than to drugs and biological substances; Z99.81 Dependence on supplemental oxygen; Z13.39 Encounter for screening examination for other mental health and behavioral disorders | CPT/HCPCS: 82043; 82570; 96127; 99212 ==

== ENCOUNTER 2025-02-09 12:55 | Outpatient (REF) | payer OTHER, SELFPAY ==
--- OUTSIDE RECORDS SUMMARY | 2024-05-06 05:00 | XMS_ITS ---
[facility] Address [address] [place] [address] Care Team Providers Care Briquette Operator Name Role Phone Chris BROWNE, Shelbi Primary Care Provider UnavailNik Haynes Unavailable [phone] Encounters Encounter Location Date Provider Diagnosis [address] [address] 05/06/2024 Nik Hernandez Plan Of Treatment Next Appt Details Provider Name:Nik Hernandez , 04/04/2025 10:00:00 AM, [address] [place] [address], [phone], Progress Notes * AYUSHMaryeDOB:1950 ( 75 yo F)Acc No.[id number]:05/06/2024 Progress Note Patient: Mine MIMS Provider: Nicolás Hernandez DPM :1950 A ge:74 Y S ex:Female Date:05/06/2024 Address:[address] [place] [address] Pcp:Shelbi Perez MD Subjective: * Chief Complaints: [...] 1 Generated for Judah locke/Wendy/Kyle on: 0 02/09/2025 01:04 PM EDT
--- OUTSIDE RECORDS SUMMARY | 2025-01-30 07:00 | XMS_ITS ---
Author Organization [facility] Address [address] [place] [address] Care Team Providers Care Contract Technician Name Role Phone Chris Karinasid Primary Care Provider Unavailabl e Rajwinder Johns Unavailable [phone] REASON FOR VISIT Chronic Care F/U Medications Medication SIG (Take, Route, Frequency, Duration) Notes Start Date End Date Status amLODIPine Besylate 5 MG 1 tablet Orally Once a day Member no longer taking Not-Taking Vitamin D3 125 MCG (5000 UT) 1 capsule Orally Once a day; Duration: 90 days Active Cyclobenzaprine HCl 10 MG 1 tablet at bedtime as needed Orally Once a day DC per member Not-Taking Tylenol Extra Strength 500 MG 1 tablet as needed Orally every 6 hrs Active traZODone HCl 150 MG 1 tablet at bedtime Orally Once a day Active Loratadine 10 MG 1 tablet Orally Once a day; Duration: 30 days Active Lisinopril 20 MG 1 tablet Orally Once a day Active Montelukast Sodium 10 MG 1 tablet Orally Once a day Active Oxygen Concentrator 2-3 liters 2lPM as needed to maintain 2 sat 88-92% continuous 2L PRN Active Multivitamin - 1 tablet Orally Once a day Active Insulin Aspart FlexPen 100 UNIT/ML as directed Subcutaneous Sliding scale TID Active hydrOXYzine HCl 25 MG as directed Orally twice a day PRN anxiety Active Lantus SoloStar 100 UNIT/ML 30 units as directed Subcutaneous daily Active Ipratropium-Albuterol 0.5-2.5 (3) MG/3ML 3 mL as needed Inhalation every [address] Frederick Active Gabapentin 300 MG as directed Orally once a day at PCP decreased dose 10/2024 Active Budesonide 2 MG/10ML 10 mL Orally Twice a day bid Dr. Frederick Active buPROPion HCl ER (SR) 150 MG 1 tablet in the morning Orally Once a day Active Citalopram Hydrobromide 10 MG 1 tablet Orally Once a day Active [facility] Fluticasone Propionate 50 MCG/ACT 1 spray in each nostril Nasally Twice a day; Duration: 30 days Active Dulaglutide 3 MG/0.5ML as directed Subcutaneous weekly Active Atorvastatin Calcium 80 MG 1 tablet Orally Once a day Active Albuterol Sulfate (2.5 MG/3ML) 0.083% 3 mL as needed Inhalation every 6 hrs PRN only Active Albuterol Sulfate HFA 108 (90 Base) MCG/ACT 1 puff as needed Inhalation every 4 hrs PRN Active rOPINIRole HCl 2 MG 1 tablet Orally Twice a day Not-Taking Aspirin 81 MG 1 tablet Orally Once a day; Duration: 90 days Active Encounters Encounter Location Date Provider Diagnosis [address] [address] 01/30/2025 Rajwinder Johns Plan Of Treatment No Information Progress Notes * Mine PEACOCK RDOB:1950 (75 yo F)Acc No.[id number]:01/30/2025 Patient: Mine MIMS External Provider: [place] Diana :1950 A ge:75 Y S ex:Female Date:01/30/2025 Address:[address] [place] [address] [address], [place]-[address] Pcp:Shelbi Perez Subjective: * Chief Complaints: * 1 . Chronic Care F/U. * HPI: G eneral Visit Information: Encounter Information: O ther(s) present at the visit: N o L ength of Visit (total time spent): 5 0 C ounseling and Education Time: 5 0% or more of the visit was spent counseling or educating the patient. In reference to (list of diagnosis): C OVID-19 Screening (Questions Revised 11/14/2019): COVID-19 Screening M ember or any household member has any new or worsening breathing problems: N o M ember or any household member has other general or non-respiratory symptoms: N o M ember or any household member has been in close contact with anyone diagnosed or suspected case of COVID: N o H istory of Present Illness: Chronic Care Visit in the Home: Sid bueno is a 74 year old woman with chronic conditions significant for COPD, ALDO, O2 dependence, HTN with HF and CKD, T2DM, Chronic pain, OA low back and left knee, healed right trimalleolar ankle fracture, RLS, Demetia, MDD and RACHNA. Initially today's visit was for chronic care f/u, but soon into the appointment patient reports urinary frequency, high blood sugars and feeling like she is retaining fluid. Denies fever, chills, flank pain, chest pain. Reports shortness of breath with activity. Lungs are clear except for forced expiratory wheezes. Abdomen in soft, non-tender. B/p 182/78 P 92 O2 98%. B S today is 170 at time of visit but overnight had been as high as 400. Patient reports taking all her medications as prescribed, using Medminder. T his APC requests son call PCP office to schedule visit as patient is overdue for PCP visit and Dr. Perez's office has an appointment available. P atient denies f alls, ED visits or admissions since last visit. Using walker in apartment and W/C when outside the apartment. APC is invited to attend PCP visit with patient and her son, to meet at the office. PCP Office Visit: Patient reports sx's to PCP. PCP is happy to see patient in office and asks Where have you been...I have not seen you since July . PCP findings are: Clear Lungs, 1+ edema to bilat LE, Wt 211 (no change). PCP ordered a UA C&S. PCP reviews recent lab from her EMR and reports: creatinine is increased from 1.5 to 1.79. eGFR is decreased to 28. LFT's normal. PCP strongly recommends f/u with display screen fabricator, Dr. Rice and increases lisinopril from 10 mg daily to 20 mg daily, Resumes Lantus at 20 units qHS, and send rx for furosemide 20 mg every other day x 7 days. Patient and son verbalize 100% understanding. PCP requests patient schedule return visit for 3 months. . 1. HTN/CKD, stage 4- Elevated B/p today; worsening kidney function; Increase lisinopril. Patient is not f ollowing low sodium diet lately. Not checking weights daily but usually checks at least weekly. Reports fluid retention. . 2. DM2/polyuria- Frequent hyperglycemia. Sugars are labile and dependent on food intake. Patient reports dietary indiscretions weekly - fast food, candy, potato chips. Checks BG via glucometer (declines CGM) TID. BG 170 today. Takes Novolog 5 units prior to each meal and Trulicity weekly.? PCP orders Lantus 20 units daily (may go up to 30 units) and with goal of eliminating the Novolog. PCP reviews recent UA, C&S which is negative for infection s/p recent treatment with abx for +UTI. Recommends a repeat UA C&S however polyuria is likely related to hyperglycemia and long standing mixed UI. B/p rececked in office 158/76 . 3. COPD/O2 dependent - Stable recently. Takes ipratropium/albuterol neb as prescribed daily and albuterol inhaler as needed. Reports shortness of breath with activity only, Denies dyspnea at rest, orthopnea, cough, chest pain, other s/s of exacerbation. Wearing O2 at night consistently and as needed during the day. . 4. Chronic Abrasion - Chronic [id number] chronic just above umbilicus. Caused by friction of adult brief, itchiness and patient scratching. There is a new pinpoint papule inferior and to the right of the umibilicus which is raised and pink, skin intact. Areas are without s /s of infection. Patient has been gently cleaning with warm soapy water, patting dry, and applying at thin layer of triple antibiotic ointment once daily. PCP agrees not infected and does not wish to prescribe oral abx. She prescribed Bactroban. . 5. MDD/RACHNA - Reports situational anxiety. Denies SI/HI/AVH. Has not yet established with a counselor; Patient reports adherence to medication regimen: bupropion, citalopram, trazodone scheduled and hydroxyzine as needed. Angie Mccray - LIZANDRO 02/01/2025. . Other upcoming appointments (all are confirmed today by this APC calling for details): Dental: [facility] [address], [address], [place] 11/30/2024 9 a.m. - rescheduled. Truss Builder: [facility] 01/19/2025 BH: Angie Mccray PMHNP at [facility] 10/28/2024, [place] 02/01/2025. Inside Phone Sales: Dr. Rice 02/09/2025- scheduled today Pulm: Dr. Frederick 02/17/2025 [facility] today; [place] 3 months. * Medical History: * Medications: T aking Albuterol Sulfate (2.5 MG/3ML) 0.083% Nebulization Solution 3 mL as needed Inhalation every 6 hrs , Notes to Pharmacist: PRN only, Taking Albuterol Sulfate HFA 108 (90 Base) MCG/ACT Aerosol Solution 1 puff as needed Inhalation every 4 hrs , Notes to Pharmacist: PRN, Taking Aspirin 81 MG Tablet Delayed Release 1 tablet Orally Once a day , Taking Budesonide 2 MG/10ML Suspension 10 mL Orally Twice a day , Notes to Pharmacist: bid Dr. Frederick, Taking buPROPion HCl ER (SR) 150 MG Tablet Extended Release 12 Hour 1 tablet in the morning Orally Once a day , Taking Citalopram Hydrobromide 10 MG Tablet 1 tablet Orally Once a day , Taking CVS Fluticasone Propionate 50 MCG/ACT Suspension 1 spray in each nostril Nasally Twice a day , Taking Dulaglutide 3 MG/0.5ML Solution Pen-injector as directed Subcutaneous weekly , Taking Gabapentin 300 MG Capsule as directed Orally once a day at , Notes to Pharmacist: PCP decreased dose 10/2024, Taking Insulin Aspart FlexPen 100 UNIT/ML Solution Pen-injector as directed Subcutaneous , Notes to Pharmacist: Sliding scale TID, Taking Ipratropium-Albuterol 0.5-2.5 (3) MG/3ML Solution 3 mL as needed Inhalation every 6 hrs , Notes to Pharmacist: BID per Dr. Frederick, Taking Lantus SoloStar 100 UNIT/ML Solution Pen-injector 30 units as directed Subcutaneous daily , Taking Lisinopril 20 MG Tablet 1 tablet Orally Once a day , Taking Loratadine 10 MG Tablet 1 tablet Orally Once a day , Taking Montelukast Sodium 10 MG Tablet 1 tablet Orally Once a day , Taking Oxygen Concentrator 2-3 liters inhaled oxygen 2lPM as needed to maintain 2 sat 88-92% continuous , Notes to Pharmacist: 2L PRN, Taking traZODone HCl 150 MG Tablet 1 tablet at bedtime Orally Once a day , Taking Tylenol Extra Strength 500 MG Tablet 1 tablet as needed Orally every 6 hrs , Taking Vitamin D3 125 MCG (5000 UT) Capsule 1 capsule Orally Once a day , Taking hydrOXYzine HCl 25 MG Tablet as directed Orally twice a day , Notes to Pharmacist: PRN anxiety, Taking Atorvastatin Calcium 80 MG Tablet 1 tablet Orally Once a day , Taking Multivitamin - Tablet 1 tablet Orally Once a day , Not-Taking amLODIPine Besylate 5 MG Tablet 1 tablet Orally Once a day , Notes to Pharmacist: Member no longer taking, Not-Taking rOPINIRole HCl 2 MG Tablet 1 tablet Orally Twice a day , Not-Taking Cyclobenzaprine HCl 10 MG Tablet 1 tablet at bedtime as needed Orally Once a day , Notes to Pharmacist: DC per member, Medication List reviewed and reconciled with the patient Objective: * Vitals: Assessment: Plan: * Treatment: Care Plan: * Problems: * * The named appointment provid er may or may not be the originator of this progress note, and it is not deemed complete until electronically signed by the appointment provider. Sign off status: Pending * Provider: [place] Diana Date: 01/30/2025 Generated for Judah locke/Wendy/Kyle on: 02/09/2025 01:03 PM EDT History and Physical Notes * HPI (History of Present Illness) Category Sub-Category Detail Notes Category Not es History of Present Illness Chronic Care Visit in the Home: Mine is a 74 year old woman with chronic conditions significant for COPD, ALDO, O2 dependence, HTN with HF and CKD, T2DM, Chronic pain, OA low back and left knee, healed right trimalleolar ankle fracture, RLS, Demetia, MDD and RACHNA. Initially today's visit was for chronic care f/u, but soon into the appointment patient reports urinary frequency, high blood sugars and feeling like she is retaining fluid. Denies fever, chills, flank pain, chest pain. Reports shortness of breath with activity. Lungs are clear except for forced expiratory wheezes. Abdomen in soft, non-tender. B/p 182/78 P 92 O2 98%. BS today is 170 at time of visit but overnight had been as high as 400. Patient reports taking all her medications as prescribed, using Medminder. This APC requests son call PCP office to schedule visit as patient is overdue for PCP visit and Dr. Perez's office has an appointment available. Patient denies falls, ED visits or admissions since last visit. Using walker in apartment and W/C when outside the apartment. APC is invited to attend PCP visit with patient and her son, to meet at the office. PCP Office Visit: Patient reports sx's to PCP. PCP is happy to see patient in office and asks Where have you been...I have not seen you since July . PCP findings are: Clear Lungs, 1+ edema to bilat LE, Wt 211 (no change). PCP ordered a UA C&S. PCP reviews recent lab from her EMR and reports: creatinine is increased from 1.5 to 1.79. eGFR is decreased to 28. LFT's normal. PCP strongly recommends f/u with display screen fabricator, Dr. Rice and increases lisinopril from 10 mg daily to 20 mg daily, Resumes Lantus at 20 units qHS, and send rx for furosemide 20 mg every other day x 7 days. Patient and son verbalize 100% understanding. PCP requests patient schedule return visit for 3 months. . 1. HTN/CKD, stage 4- Elevated B/p today; worsening kidney function; Increase lisinopril. Patient is not following low sodium diet lately. Not checking weights daily but usually checks at least weekly. Reports fluid retention. . 2. DM2/polyuria- Frequent hyperglycemia. Sugars are labile and dependent on food intake. Patient reports dietary indiscretions weekly - fast food, candy, potato chips. Checks BG via glucometer (declines CGM) TID. BG 170 today. Takes Novolog 5 units prior to each meal and Trulicity weekly. PCP orders Lantus 20 units daily (may go up to 30 units) and with goal of eliminating the Novolog. PCP reviews recent UA, C&S which is negative for infection s/p recent treatment with abx for +UTI. Recommends a repeat UA C&S however polyuria is likely related to hyperglycemia and long standing mixed UI. B/p rececked in office 158/76 . 3. COPD/O2 dependent - Stable recently. Takes ipratropium/albutero l neb as prescribed daily and albuterol inhaler as needed. Reports shortness of breath with activity only, Denies dyspnea at rest, orthopnea, cough, chest pain, other s/s of exacerbation. Wearing O2 at night consistently and as needed during the day. . 4. Chronic Abrasion - Chronic [id number] chronic just above umbilicus. Caused by friction of adult brief, itchiness and patient scratching. There is a new pinpoint papule inferior and to the right of the umibilicus which is raised and pink, skin intact. Areas are without s/s of infection. Patient has been gently cleaning with warm soapy water, patting dry, and applying at thin layer of triple antibiotic ointment once daily. PCP agrees not infected and does not wish to prescribe oral abx. She prescribed Bactroban. . 5. MDD/RACHNA - Reports situational anxiety. Denies SI/HI/AVH. Has not yet established with a counselor; Patient reports adherence to medication regimen: bupropion, citalopram, trazodone scheduled and hydroxyzine as needed. Angie Mccray - LIZANDRO 02/01/2025. . Other upcoming appointments (all are confirmed today by this APC calling for details): Dental: [facility] [address] [facility], [address], [place] 11/30/2024 9 a.m. - rescheduled. Truss Builder: [facility] 01/19/2025 BH: Angie Mccray PMHNP at [facility] 10/28/2024, [place] 02/01/2025. Inside Phone Sales: Dr. Rice 02/09/2025- scheduled today Pulm: Dr. Frederick 02/17/2025 PCP: [facility] [place] - July; visit today; [place] 3 months COVID-19 Screening (Questions Revised 11/14/2019) COVID-19 Screening Member or any household member has any new or worsening breathing problems:: No Member or any household memb er has other general or non-respiratory symptoms:: No Member or any household memb er has been in close contact with anyone diagnosed or suspected case of COVID:: No General Visit Information Encounter Information: Other(s) present at the visit:: No Length of Visit (total time spent):: 50 Counseling and Education Jitendra e:: 50% or more of the visit was spent counseling or educating the patient. In reference to (list of diagnosis):
--- OUTSIDE RECORDS SUMMARY | 2025-02-09 13:04 | XMS_ITS | Patient Health Record ---
Author Organization [facility] Address [address] [place] [address] Care Team Providers Care Machine Tool Dresser Name Role Phone José Manuel Bowman MD Primary Care Provider UnavailEllis Bernabe Unavailable [phone] Gladys BROWNE, Wallace Unavailable Unavailable Allergies Allergen [...] OF [place] [address] [place] [address] [id number] DESMOND BROOKE Self - patient is the insured MEDICAID OF [facility] [address] [place] [address] [id number] DESMOND BROOKE Self - patient is the insured Medical (General) History Medical History History ICD Code colonoscopy 11-09-2006 gerd Surgical History Surgery Date(Month/Year) cholecystectomy hysterectomy with oophorectomy D&C and tubal ligation
--- OUTSIDE RECORDS SUMMARY | 2025-02-09 13:04 | XMS_ITS | Encounter Summary ---
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
--- OUTSIDE RECORDS SUMMARY | 2025-02-09 13:04 | XMS_ITS | Clinical Summary ---
Author Organization [facility] Address [address] [place] [address] Phone Care Team Providers Care Youth Nutritional Monitor Name Role Phone Shelbi Perez MD Primary Care Provider [phone] Allergies Active Allergy Reactions Criticality Noted Date Comments Adhesive Tape 08/12/2021 Other reaction(s): skin irritation Fluticasone-Sodium Chloride Other (see comments) 08/12/2021 Trimethobenzamide 07/09/2021 Other reaction(s): GI s/s Medications acetaminophen (TYLENOL) 500 MG tablet Active Albuterol Sulfate 108 (90 Base) MCG/ACT aerosol powder 1 puff by Other route Active Aclidinium Hart (TUDORZA PRESSAIR IN) Inhale 4 Active insulin [...] MINI PEN NEEDLES 31G X 5 MM [facility] USE TO ADMINISTER INSULIN TWICE DAILY 2 [...] to complete this topic Insurance [place] [employer] ([id number]) Medicaid [place] [facility] [employer] ([id number]) Care Teams Youth Nutritional Monitor Relationship Specialty Start Date End Date Shelbi Perez MD [facility] [place] [address] PCP - General Internal Medicine 09/18/21
--- OUTSIDE RECORDS SUMMARY | 2025-02-09 13:04 | XMS_ITS ---
Author Name Vicente Zhao Address [address] [place] [address] Phone [phone] Organization [facility] Care Team Providers Care Armature Winder Repairer Name Role Phone Cristin Ogden Unavailable [phone] Reason for Referral Not Available Allergies, adverse [...] Data Available BD UF MINI PEN NEEDLE [id number] USE TO ADM INISTER INSULIN TWICE DAILY [...] Data Available BD UF MINI PEN NEEDLE [id number] USE TO ADM INISTER INSULIN TWICE DAILY [...] Female Functional Status Functional Category Effective Dates MEDICAL RESEARCH SCIENTIST assists with cooking, cl eaning, laundry, showering and dressing. Pt reports using assistive device of: 2023-03-30 Mental Status Status Date AOx 2023-03-30 Assessments Not Available Plan of Care Not Available
[2025-02-09 13:18] LABS: MANUAL DIFF FLAG NO
[2025-02-09 13:31] LABS: Hematocrit 35.3 % (37.0-47.0); Hemoglobin 11.1 g/dl (12.0-16.0); Imm Gran Abs Auto 0.06 X10*3/uL (0.00-0.03); Imm Gran Pct Auto 0.5 % (0.0-0.4); Lymphocytes Absolute Auto 2.9 X10*3/uL (1.2-4.9); Mean Corpuscular HGB Conc 31.4 g/dl (31.0-35.0); Mean Corpuscular Hemoglobin 28.0 pg (27.0-33.0); Mean Corpuscular Volume 89.1 fL (80.0-98.0); NRBC Abs Auto 0.000 X10*3/uL (0.0-0.012); NRBC Pct Auto 0.0 /100WBC (0.0-0.2); Platelet Count 286 X10*3/uL (160-400); Red Blood Count 3.96 X10*6/uL (4.20-5.50); White Blood Count 13.2 X10*3/uL (4.8-10.8)
[2025-02-09 13:53] LABS: Anion Gap 12 (12-20); Blood Urea Nitrogen 39 mg/dL (9-16); Calcium 9.0 mg/dL (8.4-10.2); Carbon Dioxide 28 mmol/L (22-29); Chloride 105 mmol/L (96-108); Estimated Glomerular Filt Rate 24; Potassium 4.4 mmol/L (3.3-5.1); Sodium 141 mmol/L (135-145)
== END 2025-02-09 12:56 | disposition home or self-care (01) ==
LOC: HO.LAB 12:55
PROVIDERS: PCP Internal Medicine; Visit Provider Internal Medicine Hypertension Specialist
DX: I12.9 Hypertensive chronic kidney disease with stage 1 through stage 4 chronic kidney disease, or unspecified chronic kidney disease (principal); N18.32 Chronic kidney disease, stage 3b; D63.1 Anemia in chronic kidney disease; N39.0 Urinary tract infection, site not specified; E66.01 Morbid (severe) obesity due to excess calories; Z79.82 Long term (current) use of aspirin; Z79.4 Long term (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 insulin; Z79.899 Other long term (current) drug therapy
CPT/HCPCS: 36415; 80048; 85025; 99212

== ENCOUNTER 2025-02-09 13:33 | Outpatient (AMB) | payer OTHER, SELFPAY ==
[2025-02-09 13:55] VITALS: BP 115/60; PULSE 85; O2SAT 94; BMI 32.6
--- NOTE | 2025-02-09 13:55 | HO.NEPHOV ---
Vital Signs 02/09/25 13:55 Height 5 ft 8 in Weight 214 lb 8 oz BMI 32.6 BP 115/60 Blood Pressure Location Lt brachial Position Sitting Pulse 85 Pulse Source Pulse Oximeter Pulse Oximetry (%) 94 Oxygen Delivery Method Room Air Intake Visit Reasons: F/U- Conf Conveyor Attendant Required: No Accompanied by: Son Allergies adhesive tape (ADHESIVE TAPE) Allergy (Intermediate, Verified 02/09/25 13:59) RASH trimethobenzamide (From TIGAN) Allergy (Mild, Verified 02/09/25 13:59) NAUSEA NSAIDS (Non-Steroidal Anti-Inflamma Adverse Reaction (Mild, Verified 02/09/25 13:59) Nephropathy environmental Allergy (Intermediate, Uncoded 12/23/24 22:48) Nasal congestion Medication List - Last Reconciled 02/09/25 by Peter Alexander MD albuterol sulfate 90 mcg/actuation (ProAir HFA) 2 puffs inhalation Q4H PRN albuterol sulfate 2.5 mg (3 mL) inhalation Q4-6H PRN amlodipine 5 mg PO DAILY aspirin 81 mg PO DAILY atorvastatin 80 mg PO DAILY 90 days blood sugar diagnostic (FreeStyle Lite Strips) Use to check blood sugar 3 times a day as needed blood sugar diagnostic (OneTouch Ultra Test strips) Use to check blood sugar 3 times a day as needed blood-glucose meter (OneTouch Ultra2 Meter) Use to check blood sugar twice daily and when having symptoms of hypo/hyperglycemia budesonide 0.5 mg (2 mL) inhalation BID 30 days bupropion HCl XL 150 mg PO DAILY cholecalciferol (vitamin D3) 25 mcg PO DAILY citalopram 20 mg PO DAILY diaper,brief,adult,disposable Use for stress incontinence diaper,brief,adult,disposable Size large adult pull up briefs dulaglutide (Trulicity) 1.5 mg (0.5 mL) subcut QWEEK 30 days furosemide (Lasix) 20 mg PO Q OTHER DAY 20 days gabapentin 900 mg PO BEDTIME gabapentin 300 mg PO ONCE hydroxyzine pamoate 25 mg PO DAILY insulin aspart U-100 (Novolog FlexPen U-100 Insulin aspart) See Protocol sliding scale doses subcut TID insulin glargine (Lantus U-100 Insulin) 20 units (0.2 mL) subcut DAILY 90 days ipratropium-albuterol 0.5 mg-3 mg(2.5 mg base)/3 mL 3 mL inhalation QID 30 days lancets once a day lancets Use to check blood sugar twice daily and when having symptoms of hypo/hyperglycemia lisinopril 20 mg PO DAILY 90 days montelukast 10 mg PO DAILY nebulizers (AeroEclipse II Nebulizer) As directed oxygen-air delivery systems As directed pen needle, diabetic (BD Ultra-Fine Mini Pen Needle) Use to administer insulin twice daily pen needle, diabetic check blood sugar four times per a day ropinirole 2 mg PO BID Shower Chair Shower chair with back and arm rests trazodone 200 mg PO BEDTIME walker Wheeled walker with seat and brakes Do you need a note to return to daycare/school/sports/work: No HPI Comments Details: 73-year-old woman with hypertension, hyperlipidemia, diabetes mellitus, GERD, osteoarthritis, CKD3, osteo chondroma left femur history of COPD on 2 L of oxygen, history of obstructive sleep apnea on CPAP. h/o CKD 3 : Baseline creatinine of 1.5 h/o few episodes of AGUSTIN - mostly due to hypoperfusion and resolved Recently had UTI with E.Coli and treated with Bactrim x 3 days Blood sugar has been elevated; A1C was 9.9% Trulicity has been prescribed but she has not started yet due to insurance issues 10/27/23 UTI in Aug treated with antibiotics Now on prednisone for COPD Blood sugar is elevated and has polyuria 03/03/24 c/o Back pain and generalized body pain Recurrent UTI Now on Trulicity 02/09/25 DEveloped leg edema LAsix has bene added [facility] Medical History Exercise hypoxemia Recurrent UTI COPD (chronic obstructive pulmonary disease) Uncontrolled diabetes mellitus Depression, major, recurrent Dysuria Kidney stone on left side Diabetes 1.5, managed as type 1 COPD (chronic obstructive pulmonary disease) Respiratory failure with hypoxia Urinary tract infection Hypoxemia Morbid obesity CKD (chronic kidney disease) Anemia COPD exacerbation Allergic rhinitis ALDO (obstructive sleep apnea) Obesity (BMI 30-39.9) Constipation due to opioid therapy Osteoarthritis of left knee Hx SBO Hyperlipidemia CPAP (continuous positive airway pressure) dependence History of adrenal adenoma Osteochondroma of left femur Arthritis Diabetes Elevated cholesterol History of restless legs syndrome History of diverticulitis GERD (gastroesophageal reflux disease) Surgical History H/O excision of mass History of oophorectomy History of cholecystectomy History of appendectomy History of arthroscopy of left knee History of partial colectomy Hx of cataract extraction H/O exploratory laparotomy H/O colonoscopy History of surgery History of hysterectomy Family History Father HTN (hypertension) Diabetes mellitus Mother HTN (hypertension) Liver cancer Social History 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: Other 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 Other:: ex- has been staying over Housing: House Are you a primary career development coordinator/teacher to a significant other at home: No Do you presently have visiting nurse or other home services: Yes Unable to assess alcohol history related to: Unknown Alcohol intake: never Comment: PT SLEEPING Patient Tobacco Use Status: Never used Tobacco e-Cigarette/Vaping Use: Never Used Second Hand Smoke Exposure: No Advance Directives Date on File: 10/22/23 service: No Current occupational status: retired Cognitive needs: No Hearing needs: No Vision needs: No Female Reproductive History Menstrual Age of Menarche: 13 Physical Exam Vital Signs: Last Vital Signs Pulse 85 02/09/25 13:55 BP 115/60 02/09/25 13:55 Pulse Ox 94 02/09/25 13:55 Oxygen Delivery Method Room Air 02/09/25 13:55 BMI result Body Mass Index 32.6 Const General: comfortable; No acute distress Orientation/consciousness: patient oriented x3 Eyes General: appearance normal, both eyes and all related structures Visual Nation: normal visual nation by confrontation Neck Neck: Yes supple and Yes no JVD Resp Effort & Inspection: normal respiratory effort and respiratory effort not decreased Auscultation: rhonchi Cardio Palpation: no palpable S3 and no palpable S4 Heart sounds: no rubs GI Inspection: Yes normal to inspection Palpation (GI): Soft to palpation Percussion: Yes normal to percussion Auscultation: normal bowel sounds General: Yes no CVA tenderness Back/Spine/Pelvis Back: no CVA tenderness Skin General skin exam: no petechiae and no purpura Neuro General: patient oriented x3 and no focal motor deficits Extrem General: No clubbing and No edema Results Reviewed Nephrology Results: Hgb, (12.0-16.0) 11.1 g/dl L Today WBC, (4.8-10.8) 13.2 X10*3/uL H Today Plt Count, (160-400) 286 X10*3/uL Today Sodium, (135-145) 141 mmol/L Today Potassium, (3.3-5.1) 4.4 mmol/L Today Chloride, (96-108) 105 mmol/L Today Carbon Dioxide, (22-29) 28 mmol/L Today BUN, (9-16) 39 mg/dL H Today Creatinine, (0.5-1.4) 2.02 mg/dL H Today Calcium, (8.4-10.2) 9.0 mg/dL Today Urine Protein, (Neg-Trace) Trace mg/dL 12/23/24 Urine Creatinine 62.97 mg/dL 01/27/25 Renal US 11/12/22 Assessment & Plan Assessment & Plan (1) CKD (chronic kidney disease): Code(s): N18.9 - Chronic kidney disease, unspecified Category: Medical Qualifiers: Chronic kidney disease stage: stage 3 (moderate) Chronic kidney disease stage 3 subtype: stage 3b (GFR 30-44) Qualified Code(s): N18.32 - Chronic kidney disease, stage 3b Plan: Due to Hypertensive diabetic kidney disease Urine sediments are balnd- NO reason to suspect AGN/AiN Obstruction unlikely based on recent CT scan Goal is to slow the progression of kidney disease Continue to avoid nephrotoxins including NSAIDS - Discussed with Mine Avoid Hypotension and maintain BP < 130/80 Renal function has decreased. Most l ikely due to hypoperfusion from ACEi/Lasix Would taper and DC lasix or other option is to lower Lisinopril by 50% Optimize blood sugar Continue ACEi for renal protection Would benefit from SGLT-2 inhibitor Needs weight loss No significant edema today Can taper and DC Lasix or use PRN h/o Recurrent UTI Repeat urine culture (2) Morbid obesity: Comment: PATIENT IS CHRONICALLY OVERWEIGHT BECAUSE SHE CAN NOT DO ANY PHYSICAL ACTIVITY Code(s): E66.01 - Morbid (severe) obesity due to excess calories Category: Medical Plan: Discussed weight loss (3) Anemia: Code(s): D64.9 - Anemia, unspecified Category: Medical Qualifiers: Anemia type: due to chronic kidney disease Chronic kidney disease stage: stage 3 (moderate) Chronic kidney disease stage 3 subtype: stage 3a (GFR 45-59) Qualified Code(s): N18.31 - Chronic kidney disease, stage 3a; D63.1 - Anemia in chronic kidney disease Plan: Multifactorial No indication for Epogen (4) Recurrent UTI: Comment: She has no urinary symptoms at this time Code(s): N39.0 - Urinary tract infection, site not specified Category: Medical (5) Chronic kidney disease, stage III (moderate): Code(s): N18.30 - Chronic kidney disease, stage 3 unspecified Category: Medical Qualifiers: Chronic kidney disease stage 3 subtype: stage 3a (GFR 45-59) Qualified Code(s): N18.31 - Chronic kidney disease, stage 3a Plan . Orders: Orders Basic Metabolic Panel 6 Months N18.31 - Chronic kidney disease, stage 3a Coding Level of Care Code Est Pt Level 4 (15725) Diagnoses Stage 3b chronic kidney disease N18.32 Chronic kidney disease stage: stage 3 (moderate) Chronic kidney disease stage 3 subtype: stage 3b (GFR 30-44) Morbid obesity E66.01 Anemia due to stage 3a chronic kidney disease N18.31; D63.1 Anemia type: due to chronic kidney disease Chronic kidney disease stage: stage 3 (moderate) Chronic kidney disease stage 3 subtype: stage 3a (GFR 45-59) Recurrent UTI N39.0 Stage 3a chronic kidney disease N18.31 Chronic kidney disease stage 3 subtype: stage 3a (GFR 45-59)
== END 2025-02-09 14:18 | disposition home or self-care (01) ==
LOC: HO.HKA 13:34
PROVIDERS: PCP Internal Medicine; Visit Provider Internal Medicine Hypertension Specialist
DX: N18.32 Chronic kidney disease, stage 3b (principal); E66.01 Morbid (severe) obesity due to excess calories; N18.31 Chronic kidney disease, stage 3a; D63.1 Anemia in chronic kidney disease; N39.0 Urinary tract infection, site not specified
CPT/HCPCS: 99214

== ENCOUNTER 2025-02-20 12:49 | Outpatient (AMB) | payer OTHER, SELFPAY ==
--- OUTSIDE RECORDS SUMMARY | 2024-05-06 05:00 | XMS_ITS ---
Author Organization [facility] Address [address] [place] [address] Care Team Providers Care Wire Preparation Machine Tender Name Role Phone Chris BROWNE, Shelbi Primary Care Provider UnavailNik Haynes Unavailable [phone] Encounters Encounter Location Date Provider Diagnosis [address] [address] 05/06/2024 Nik Hernandez Plan Of Treatment Next Appt Details Provider Name:Nik Hernandez , 04/04/2025 10:00:00 AM, [address] [place] [address], [phone], Progress Notes * AYUSHMaryeDOB:1950 ( 75 yo F)Acc No.[id number]:05/06/2024 Progress Note Patient: Mine MIMS Provider: Nicolás Hernandez DPM :1950 A ge:74 Y S ex:Female Date:05/06/2024 Address:[address] [place] [address] Pcp:Shelbi Perez MD Subjective: * Chief Complaints: [...] 1 Generated for Judah locke/Wendy/Kyle on: 0 02/20/2025 12:55 PM EDT
--- OUTSIDE RECORDS SUMMARY | 2025-02-20 12:54 | XMS_ITS | Patient Health Record ---
Author Organization [facility] Address [address] [place] [address] Care Team Providers Care Cook Helper Preserves Name Role Phone José Manuel Bowman MD Primary Care Provider UnavailEllis Bernabe Unavailable [phone] Wallace Graham MD Unavailable Unavailable Allergies Allergen (clinical drug ingredient) Drug/Non Drug Allergy documented on EMR Reaction Allergy Type Onset Date Status trimethobenzamide Tigan Unknown Drug Allergy Active Reason For Referral No Information Problems Problem Type SNOMED Code ICD Code Onset Dates Problem Status W/U Status Risk Notes Problem Ulcerative colitis (41473275) Ulcerative colitis (K51.90) Active confirmed Plan Of Treatment No Information Insurance Providers Payer Name Payer Address Payer Phone Subscriber Number Group Number Insured Name Patient Relationship to Insured Coverage Start Date Coverage End Date MEDICARE OF [place] [address] [place] [id number] [phone] [id number] DESMOND BROOKE Self - patient is the insured MEDICAID OF [facility] [address] [place] [address] [id number] DESMOND BROOKE Self - patient is the insured Medical (General) History Medical History History ICD Code colonoscopy 11-09-2006 gerd Surgical History Surgery Date(Month/Year) cholecystectomy hysterectomy with oophorectomy D&C and tubal ligation
--- OUTSIDE RECORDS SUMMARY | 2025-02-20 12:54 | XMS_ITS | Encounter Summary ---
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 140 mg/dL LAB CHEMISTRY METHOD 06/14/2024 12:36 PM EST [facility] Blood Venous blood specimen / Unknown Venipuncture / Unknown 06/14/2024 4:50 AM EST 06/14/2024 8:48 AM EST Delaney Sherman MD LAB BLOOD ORDERABLES Final Resu lt [facility] ([facility]) [facility] [address] [place] [address], documented in this encounter Visit Diagnoses Diagnosis [facility] (current) use of insulin (CMS/HCC V24, CMS/[facility] V28) Type 2 diabetes mellitus without complications (CMS/HCC V24, CMS/HCC V28) documented in this encounter Care Teams Bulb Filler Relationship Specialty Start Date End Date Delaney Sherman MD [address] [place] [phone] PCP - General Hospitalist Medicine 06/14/24 documented as of this encounter
--- OUTSIDE RECORDS SUMMARY | 2025-02-20 12:55 | XMS_ITS | Patient Health Record ---
Author Organization [facility] liance Address [address] [place] [address] Care Team Providers Care Geospatial Information Technologist Name Role Phone ChrisShelbi Primary Care Provider Unavailabl e Rajwinder Johns Unavailable [phone] Clinical, Operations Unavailable Unavailable Allergies No Known Allergies Results Component Value Reference Range Notes Urinalysis, Complete-[id number] Reviewed date:04/05/2024 01:13:47 PM Interpretation: Performing Lab:[facility], [address] [facility], Phone - [phone], Director - Deb Notes/Report: Clinical Information:SRC:UC SRC: Clinical Information:SRC: SRC: Specific Galva 1.010 1.005-1.030 pH 7.5 5.0-7.5 Urine-Color Yellow [...] Bacteria None seen None seen/Few Urine Culture, Routine-[id number] Reviewed date:04/06/2024 12:04:52 PM Interpretation: Performing Lab:[facility] [place], [address], [address], [place], Phone - [phone], Director - Terry Notes/Report: Clinical Information:SRC:UC SRC:UC Clinical Information:SRC:UC SRC:UC Urine Culture, Routine Final report Result 1 Mixed urogenital rhina 50,000-100,000 colony forming units per mL Reason For Referral No Information Medications Medication SIG (Take, Route, Frequency, Duration) Notes Start Date End Date Status Multivitamin - 1 tablet Orally Once a day Active traZODone HCl 150 MG 1 tablet at bedtime Orally Once a day Active Tylenol Extra Strength 500 MG 1 tablet as needed Orally every 6 hrs Active Loratadine 10 MG 1 tablet Orally Once a day; Duration: 30 days Active Lisinopril 20 MG 1 tablet Orally Once a day Active Atorvastatin Calcium 80 MG 1 tablet Orally Once a day Active Aspirin 81 MG 1 tablet Orally Once a day; Duration: 90 days Active Vitamin D3 125 MCG (5000 UT) 1 capsule Orally Once a day; Duration: 90 days Active amLODIPine Besylate 5 MG 1 tablet Orally Once a day Member no longer taking Not-Taking Cyclobenzaprine HCl 10 MG 1 tablet at bedtime as needed Orally Once a day DC per member Not-Taking rOPINIRole HCl 2 MG 1 tablet Orally Twice a day Not-Taking Citalopram Hydrobromide 10 MG 1 tablet Orally Once a day Active [facility] Fluticasone Propionate 50 MCG/ACT 1 spray in each nostril Nasally Twice a day; Duration: 30 days Active Insulin Aspart FlexPen 100 UNIT/ML as directed Subcutaneous Sliding scale TID Active Dulaglutide 3 MG/0.5ML as directed Subcutaneous weekly Active Lantus SoloStar 100 UNIT/ML 20 units Subcutaneous daily; Duration: 30 days Active Gabapentin 300 MG as directed Orally once a day at PCP decreased dose 10/2024 Active buPROPion HCl ER (SR) 150 MG 1 tablet in the morning Orally Once a day Active Oxygen Concentrator 2-3 liters 2lPM as needed to maintain 2 sat 88-92% continuous 2L PRN Active Albuterol Sulfate (2.5 MG/3ML) 0.083% 3 mL as needed Inhalation every 6 hrs PRN only Active hydrOXYzine HCl 25 MG as directed Orally twice a day PRN anxiety Active Albuterol Sulfate HFA 108 (90 Base) MCG/ACT 1 puff as needed Inhalation every 4 hrs PRN Active Budesonide 2 MG/10ML 10 mL Orally Twice a day bid Dr. Frederick Active Ipratropium-Albuterol 0.5-2.5 (3) MG/3ML 3 mL as needed Inhalation every [address] Frederick Active Montelukast Sodium 10 MG 1 tablet Orally Once a day Active Problems Problem Type SNOMED Code ICD Code Onset Dates Problem Status W/U Status Risk Notes Problem Vitamin D deficiency (20772941) Vitamin D deficiency, unspecified (E55.9) Active confirmed Problem Dysuria (17297470) Dysuria (R30.0) Inactive confirmed Problem Type II diabetes mellitus without complication (481350871) Diabetes (E11.9) Inactive confirmed Problem Obstructive sleep apnea syndrome (21433577) ALDO on CPAP (G47.33) Active confirmed Problem Chest pain (16026446) Chest pain (R07.9) Problem resolved confirmed Problem Heart failure (76159371) Heart failure, unspecified (I50.9) Inactive confirmed Problem History of fall (127819739) History of falling (Z91.81) Active confirmed Problem Hypertension (34890360) HTN (hypertension) (I10) Inactive confirmed Problem Acute exacerbation of chronic obstructive airways disease (883330693) COPD exacerbation (J44.1) Problem resolved confirmed Problem COPD - Chronic obstructive pulmonary disease (17719102) COPD (chronic obstructive pulmonary disease) (J44.9) Active confirmed Problem Dyspnea (127604838) Dyspnea (R06.00) Inactive confirmed Problem Mixed incontinence (848021931) Mixed incontinence (N39.46) Active confirmed Problem Generalized anxiety disorder (04700220) RACHNA (generalized anxiety disorder) (F41.1) Active confirmed Problem Chronic kidney disease (747151280) CKD (chronic kidney disease) (N18.9) Inactive confirmed Problem Polyneuropathy (74065955) Polyneuropathy (G62.9) Inactive confirmed Problem Moderate recurrent major depression (78393649) Major depressive disorder, recurrent episode, moderate (F33.1) Active confirmed Problem Polymyalgia rheumatica (69751476) Polymyalgia rheumatica (M35.3) Active confirmed Problem Restless legs (32780785) Restless legs syndrome (RLS) (G25.81) Active confirmed Problem Dependence on supplemental oxygen (819934856459) 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) Active confirmed Problem Dementia (27294268) Dementia, unspecified, without behavioral disturbance (F03.90) Active confirmed Problem Chronic respiratory failure (04731401) Chronic respiratory failure with hypoxia (J96.11) Active confirmed Problem Chronic kidney disease stage 4 (247153457) Chronic kidney disease, stage 4 (severe) (N18.4) Active confirmed Problem Urinary tract infectious disease (76527065) Recurrent UTI (urinary tract infection) (N39.0) Active confirmed Problem Osteoarthritis of knee (432840196) Unilateral primary osteoarthritis, left knee (M17.12) Active confirmed Problem Extrapyramidal disorder (40212426) Extrapyramidal disorder (G25.9) Active confirmed Problem Chronic dacryocystitis (88343851) 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) Active confirmed Problem Panlobular emphysema (7199478) Panlobular emphysema (J43.1) Active confirmed Problem Displaced trimalleolar fracture of right lower leg, subsequent encounter for closed fracture with routine healing (S82.851D) Active confirmed Problem Spondylosis without myelopathy (27012115) Arthritis, low back (M47.819) Active confirmed Problem Diarrhea (78621759) Diarrhea, unspecified (R19.7) Active confirmed Problem Chronic pain (01527749) Other chronic pain (G89.29) Active confirmed Problem Long-term current use of insulin (399686934) termite helper (current) use of insulin (Z79.4) Active confirmed Problem Chronic diastolic heart failure (241892262) Chronic diastolic (congestive) heart failure (I50.32) Active confirmed Problem 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 failure (91672988923603) 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 kidney disease, or unspecified chronic kidney disease (I13.0) Active confirmed Problem Diabetic peripheral neuropathy associated with type 2 diabetes mellitus (4705939179821) Type 2 diabetes mellitus with diabetic neuropathy, unspecified (E11.40) Active confirmed Problem Morbid obesity (disorder) (486309723) Morbid (severe) obesity due to excess calories (E66.01) Active confirmed Problem Abrasion of skin (94621231) Skin abrasion (T14.8XXA) Active confirmed Problem Hyperglycemia due to type 2 diabetes mellitus (921978239383895) Uncontrolled type 2 diabetes mellitus with hyperglycemia (E11.65) Active confirmed Problem Disease caused by Severe acute respiratory syndrome coronavirus 2 (disorder) (830403676) COVID-19 virus infection (U07.1) Problem resolved confirmed Problem COVID-19 (787506500) COVID-19 (U07.1) Inactive confirmed Problem Chronic kidney disease stage 3A (492557792) Stage 3a chronic kidney disease (N18.31) Inactive confirmed Problem Body mass index 40+ - severely obese (767544624) Body mass index [BMI] 40.0-44.9, adult (Z68.41) Active confirmed Problem Diabetic on non-insulin injectable medication (finding) (083397084) Long-term current use of injectable noninsulin antidiabetic medication (Z79.85) Active confirmed Problem Acquired nasolacrimal duct stenosis (308575932) 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) Inactive confirmed Problem Late effect of fracture of lower extremities (21092663) Closed displaced trimalleolar fracture of right ankle, sequela (S82.851S) Inactive confirmed Vital Signs Heart Rate 73 /min 02/14/2025 Temperature 98.1 degrees Fahrenheit 02/14/2025 Respiratory Rate 18 /min 02/14/2025 Blood pressure diastolic 58 mm Hg 02/14/2025 Oximetry 98 % 02/14/2025 Height-cm 152.4 cm 02/14/2025 Weight-kg 96.16 kg 02/14/2025 Height 60 in 02/14/2025 Blood pressure systolic 124 mm Hg 02/14/2025 Weight 212 lbs 02/14/2025 BMI 41.4 kg/m2 02/14/2025 Encounters Encounter Location Date Provider Diagnosis [facility] [address] [facility] [place] [address] 04/04/2024 Rajwinder Johns [facility] [address] [place] [address] 09/26/2024 Rajwinder Johns [facility] [address] [facility] [place] [address] 10/10/2024 Rajwinder Johns [facility] [address] [place] [address] 10/10/2024 Rajwinder Johns [facility] [address] [facility] [place] [address] 12/02/2024 Rajwinder Johns [address] [address] 02/24/2024 Rajwinder Johns 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 kidney disease, or unspecified chronic kidney disease I13.0 ; Chronic diastolic (congestive) heart failure I50.32 ; Stage 3a chronic kidney disease N18.31 ; COPD (chronic obstructive pulmonary disease) J44.9 ; Type 2 diabetes mellitus with diabetic neuropathy, unspecified E11.40 ; termite helper (current) use of insulin Z79.4 ; Major [...] Z79.85 and Restless legs syndrome (RLS) G25.[address] [address] 03/07/2024 Rajwinder Johns COVID-19 virus infection U07.[address] [address] 06/24/2024 Rajwinder Johns 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 kidney disease, or unspecified chronic kidney disease I13.0 ; Chronic diastolic (congestive) heart failure I50.32 ; Stage 3a chronic kidney disease N18.31 ; COPD (chronic obstructive pulmonary disease) J44.9 ; Type 2 diabetes mellitus with diabetic neuropathy, unspecified E11.40 ; longterm (current) use of insulin Z79.4 ; Major [...] dependent Z99.81 and Other chronic pain G89.[address] [address] 06/30/2024 Rajwinder Johns COPD (chronic obstructive pulmonary disease) J44.9 and RACHNA (generalized anxiety disorder) F41.[address] [address] 04/15/2024 Rajwinder Johns Closed displaced trimalleolar fracture of right ankle, sequela S82.851S [address] [address] 10/28/2024 Operations Clinical Type 2 diabetes mellitus [...] closed fracture with routine healing S82.851D ; longterm (current) use of insulin Z79.4 ; Long-term current use of injectable noninsulin antidiabetic medication Z79.85 ; 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 ; Morbid (severe) obesity due to excess calories E66.01 ; Body mass index [BMI] 40.0-44.9, adult Z68.41 ; Skin abrasion T14.8XXA and Seasonal allergic reaction J30.[address] [address] 04/07/2024 Operations Clinical COPD (chronic obstructive pulmonary disease) J44.9 ; 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 kidney disease, or unspecified chronic kidney disease I13.0 ; Chronic diastolic (congestive) heart failure I50.32 ; Stage 3a chronic kidney disease N18.31 ; Uncontrolled type 2 diabetes mellitus with hyperglycemia E11.65 ; longterm (current) use of insulin Z79.4 ; Type [...] left knee M17.12 and Polymyalgia rheumatica M35.[address] [address] 07/05/2024 Rajwinder Johns COPD (chronic obstructive pulmonary disease) J44.9 ; RACHNA (generalized anxiety disorder) F41.1 and 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 [address] 07/07/2024 Rajwinder Johns 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 kidney disease, or unspecified chronic kidney disease I13.0 ; Chronic diastolic (congestive) heart failure I50.32 ; Stage 3a chronic kidney disease N18.31 ; COPD (chronic obstructive pulmonary disease) J44.9 ; Type 2 diabetes mellitus with diabetic neuropathy, unspecified E11.40 ; termite helper (current) use of insulin Z79.4 ; Major [...] dependent Z99.81 and Other chronic pain G89.[address] [address] 07/15/2024 Rajwinder Johns COPD (chronic obstructive pulmonary disease) J44.9 ; RACHNA (generalized anxiety disorder) F41.1 ; 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 ; Type 2 diabetes mellitus with diabetic neuropathy, unspecified E11.40 ; Uncontrolled type 2 diabetes mellitus with hyperglycemia E11.65 ; Chronic kidney disease, stage 3b N18.32 ; Morbid (severe) obesity due to excess calories E66.01 ; Body mass index [BMI] 40.0-44.9, adult Z68.41 ; termite helper (current) use of insulin Z79.4 ; Long-term current use of injectable noninsulin antidiabetic medication Z79.85 and 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 kidney disease, or unspecified chronic kidney disease I13.[address] [address] 07/22/2024 Rajwinder Johns COPD (chronic obstructive pulmonary disease) J44.9 ; RACHNA (generalized anxiety disorder) F41.1 ; 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 ; Type 2 diabetes mellitus with diabetic neuropathy, unspecified E11.40 ; Uncontrolled type 2 diabetes mellitus with hyperglycemia E11.65 ; Chronic kidney disease, stage 3b N18.32 ; Morbid (severe) obesity due to excess calories E66.01 ; Body mass index [BMI] 40.0-44.9, adult Z68.41 ; longterm (current) use of insulin Z79.4 ; Long-term current use of injectable noninsulin antidiabetic medication Z79.85 and 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 kidney disease, or unspecified chronic kidney disease I13.[address] [address] 07/28/2024 Rajwinder Johns COPD (chronic obstructive pulmonary disease) J44.9 ; RACHNA (generalized anxiety disorder) F41.1 ; 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 ; Type 2 diabetes mellitus with diabetic neuropathy, unspecified E11.40 ; Uncontrolled type 2 diabetes mellitus with hyperglycemia E11.65 ; Chronic kidney disease, stage 3b N18.32 ; Morbid (severe) obesity due to excess calories E66.01 ; Body mass index [BMI] 40.0-44.9, adult Z68.41 ; longterm (current) use of insulin Z79.4 ; Long-term current use of injectable noninsulin antidiabetic medication Z79.85 and 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 kidney disease, or unspecified chronic kidney disease I13.[address] [address] 08/02/2024 Rajwinder Nat COPD (chronic obstructive pulmonary disease) J44.9 ; RACHNA (generalized anxiety disorder) F41.1 ; 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 ; Type 2 diabetes mellitus with diabetic neuropathy, unspecified E11.40 ; Uncontrolled type 2 diabetes mellitus with hyperglycemia E11.65 ; Chronic kidney disease, stage 3b N18.32 ; Morbid (severe) obesity due to excess calories E66.01 ; Body mass index [BMI] 40.0-44.9, adult Z68.41 ; longterm (current) use of insulin Z79.4 ; Long-term current use of injectable noninsulin antidiabetic medication Z79.85 and 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 kidney disease, or unspecified chronic kidney disease I13.[address] [place] [address] 08/08/2024 Rajwinder Johns COPD (chronic obstructive pulmonary disease) J44.9 ; RACHNA (generalized anxiety disorder) F41.1 ; 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 ; Type 2 diabetes mellitus with diabetic neuropathy, unspecified E11.40 ; Uncontrolled type 2 diabetes mellitus with hyperglycemia E11.65 ; Chronic kidney disease, stage 3b N18.32 ; Morbid (severe) obesity due to excess calories E66.01 ; Body mass index [BMI] 40.0-44.9, adult Z68.41 ; longterm (current) use of insulin Z79.4 ; Long-term [...] for closed fracture with routine healing S82.851D [address] [place] [address] 08/16/2024 Rajwinder Nat COPD (chronic obstructive pulmonary disease) J44.9 ; RACHNA (generalized anxiety disorder) F41.1 ; 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 ; Type 2 diabetes mellitus with diabetic neuropathy, unspecified E11.40 ; Uncontrolled type 2 diabetes mellitus with hyperglycemia E11.65 ; Chronic kidney disease, stage 3b N18.32 ; Morbid (severe) obesity due to excess calories E66.01 ; Body mass index [BMI] 40.0-44.9, adult Z68.41 ; termite helper (current) use of insulin Z79.4 ; Long-term [...] for closed fracture with routine healing S82.851D [address] [place] [address] 08/23/2024 Rajwinder Johns COPD (chronic obstructive pulmonary disease) J44.9 ; RACHNA (generalized anxiety disorder) F41.1 ; 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 ; Type 2 diabetes mellitus with diabetic neuropathy, unspecified E11.40 ; Uncontrolled type 2 diabetes mellitus with hyperglycemia E11.65 ; Chronic kidney disease, stage 3b N18.32 ; Morbid (severe) obesity due to excess calories E66.01 ; Body mass index [BMI] 40.0-44.9, adult Z68.41 ; termite helper (current) use of insulin Z79.4 ; Long-term [...] for closed fracture with routine healing S82.851D [address] [place] [address] 08/30/2024 Rajwinder Johns COPD (chronic obstructive pulmonary disease) J44.9 ; RACHNA (generalized anxiety disorder) F41.1 ; 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 ; Type 2 diabetes mellitus with diabetic neuropathy, unspecified E11.40 ; Uncontrolled type 2 diabetes mellitus with hyperglycemia E11.65 ; Chronic kidney disease, stage 3b N18.32 ; Morbid (severe) obesity due to excess calories E66.01 ; Body mass index [BMI] 40.0-44.9, adult Z68.41 ; longterm (current) use of insulin Z79.4 ; Long-term [...] routine healing S82.851D and Skin abrasion T14.8XXA [address] [place] [address] 09/01/2024 Rajwinder Johns RACHNA (generalized anxiety disorder) F41.1 ; Other chronic pain G89.29 ; Unilateral primary osteoarthritis, left knee M17.12 ; Arthritis, low back M47.819 ; Displaced trimalleolar fracture of right lower leg, subsequent encounter for closed fracture with routine healing S82.851D ; Skin abrasion T14.8XXA and Major depressive disorder, recurrent episode, moderate F33.[address] [address] 09/08/2024 Rajwinder Johns RACHNA (generalized anxiety disorder) F41.1 ; Other chronic pain G89.29 ; Unilateral primary osteoarthritis, left knee M17.12 ; Arthritis, low back M47.819 ; Displaced trimalleolar fracture of right lower leg, subsequent encounter for closed fracture with routine healing S82.851D ; Skin abrasion T14.8XXA and Major depressive disorder, recurrent episode, moderate F33.[address] [place] [address] 09/15/2024 Rajwinder Johns RACHNA (generalized anxiety disorder) [...] disease) J44.9 ; 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 ; longterm (current) use of insulin Z79.4 ; Long-term current use of injectable noninsulin antidiabetic medication Z79.85 ; Chronic kidney disease, stage 3b N18.32 and Morbid (severe) obesity due to excess calories E66.[address] [place] [address] 09/22/2024 Rajwinder Johns RACHNA (generalized anxiety disorder) [...] disease) J44.9 ; 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 ; longterm (current) use of insulin Z79.4 ; Long-term current use of injectable noninsulin antidiabetic medication Z79.85 ; Chronic kidney disease, stage 3b N18.32 and Morbid (severe) obesity due to excess calories E66.[address] [address] 09/29/2024 Rajwinder Johns RACHNA (generalized anxiety disorder) [...] disease) J44.9 ; 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 ; termite helper (current) use of insulin Z79.4 ; Long-term current use of injectable noninsulin antidiabetic medication Z79.85 ; Chronic kidney disease, stage 3b N18.32 and Morbid (severe) obesity due to excess calories E66.[address] [address] 10/07/2024 Rajwinder Johns RACHNA (generalized anxiety disorder) [...] disease) J44.9 ; 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 ; longterm (current) use of insulin Z79.4 ; Long-term current use of injectable noninsulin antidiabetic medication Z79.85 ; Chronic kidney disease, stage 3b N18.32 and Morbid (severe) obesity due to excess calories E66.[address] [address] 10/14/2024 Rajwinder Johns RACHNA (generalized anxiety disorder) [...] disease) J44.9 ; 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 ; termite helper (current) use of insulin Z79.4 ; Long-term current use of injectable noninsulin antidiabetic medication Z79.85 ; Chronic kidney disease, stage 3b N18.32 and Morbid (severe) obesity due to excess calories E66.[address] [address] 10/21/2024 Rajwinder Johns RACHNA (generalized anxiety disorder) [...] disease) J44.9 ; 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 ; termite helper (current) use of insulin Z79.4 ; Long-term current use of injectable noninsulin antidiabetic medication Z79.85 ; Chronic kidney disease, stage 3b N18.32 and Morbid (severe) obesity due to excess calories E66.[address] [address] 02/14/2025 Rajwinder Johns COPD (chronic obstructive pulmonary disease) J44.9 ; Type 2 diabetes mellitus with diabetic neuropathy, unspecified E11.40 ; Uncontrolled type 2 diabetes mellitus with hyperglycemia E11.65 ; Chronic respiratory failure with hypoxia J96.11 ; longterm (current) use of insulin Z79.4 ; Long-term current use of injectable noninsulin antidiabetic medication Z79.85 ; 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 ; 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 kidney disease, or unspecified chronic kidney disease I13.0 and Chronic kidney disease, stage 4 (severe) N18.[address] [address] 12/16/2024 Rajwinder Johns Arthritis, low back M47.819 ; Type 2 diabetes mellitus with diabetic neuropathy, unspecified E11.40 ; 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 kidney disease, or unspecified chronic kidney disease I13.0 ; COPD (chronic obstructive pulmonary disease) J44.9 ; 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 and Chronic kidney disease, stage 3b N18.[address] [address] 12/27/2024 Rajwinder Johns COPD (chronic obstructive pulmonary disease) J44.9 ; Recurrent UTI (urinary tract infection) N39.0 ; Type 2 diabetes mellitus with diabetic neuropathy, unspecified E11.40 ; Uncontrolled type 2 diabetes mellitus with hyperglycemia E11.65 ; Chronic respiratory failure with hypoxia J96.11 ; longterm (current) use of insulin Z79.4 ; Long-term current use of injectable noninsulin antidiabetic medication Z79.85 and 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 [address] 2025 Rajwinder Johns COPD (chronic obstructive pulmonary disease) J44.9 ; Recurrent UTI (urinary tract infection) N39.0 ; Type 2 diabetes mellitus with diabetic neuropathy, unspecified E11.40 ; Uncontrolled type 2 diabetes mellitus with hyperglycemia E11.65 ; Chronic respiratory failure with hypoxia J96.11 ; termite helper (current) use of insulin Z79.4 ; Long-term current use of injectable noninsulin antidiabetic medication Z79.85 ; 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 ; 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 kidney disease, or unspecified chronic kidney disease I13.0 ; Chronic kidney disease, stage 3b N18.32 ; Vitamin D deficiency, unspecified E55.9 and Mixed incontinence N39.[address] [address] 01/27/2025 Rajwinder Johns COPD (chronic obstructive pulmonary disease) J44.9 ; Recurrent UTI (urinary tract infection) N39.0 ; Type 2 diabetes mellitus with diabetic neuropathy, unspecified E11.40 ; Uncontrolled type 2 diabetes mellitus with hyperglycemia E11.65 ; Chronic respiratory failure with hypoxia J96.11 ; longterm (current) use of insulin Z79.4 ; Long-term current use of injectable noninsulin antidiabetic medication Z79.85 ; 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 ; 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 kidney disease, or unspecified chronic kidney disease I13.0 ; Mixed incontinence N39.46 and Chronic kidney disease, stage 4 (severe) N18.[address] [id number] 01/30/2025 Rajwinder Johns COPD (chronic obstructive pulmonary disease) J44.9 ; Recurrent UTI (urinary tract infection) N39.0 ; Type 2 diabetes mellitus with diabetic neuropathy, unspecified E11.40 ; Uncontrolled type 2 diabetes mellitus with hyperglycemia E11.65 ; Chronic respiratory failure with hypoxia J96.11 ; termite helper (current) use of insulin Z79.4 ; Long-term current use of injectable noninsulin antidiabetic medication Z79.85 ; 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 ; 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 kidney disease, or unspecified chronic kidney disease I13.0 ; Mixed incontinence N39.46 and Chronic kidney disease, stage 4 (severe) N18.[address] [address] 11/04/2024 Rajwinder Johns Arthritis, low back M47.819 [...] 3b N18.32 and Seasonal allergic reaction J30.[address] [address] 11/14/2024 Rajwinder Johns Arthritis, low back M47.819 ; Type 2 diabetes mellitus with diabetic neuropathy, unspecified E11.40 ; 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 kidney disease, or unspecified chronic kidney disease I13.0 ; COPD (chronic obstructive pulmonary disease) J44.9 ; 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 and Chronic kidney disease, stage 3b N18.[address] [address] 11/28/2024 Rajwinder Johns Arthritis, low back M47.819 ; Type 2 diabetes mellitus with diabetic neuropathy, unspecified E11.40 ; 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 kidney disease, or unspecified chronic kidney disease I13.0 ; COPD (chronic obstructive pulmonary disease) J44.9 ; 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 and Chronic kidney disease, stage 3b N18.[address] [address] 04/27/2024 Rajwinder Nat Closed displaced trimalleolar fracture of right ankle, sequela S82.851S [address] [address] 06/06/2024 Rajwinder Evansard Displaced trimalleolar fracture of right lower leg, subsequent encounter for closed fracture with routine healing S82.851D [address] [place] [address] 03/10/2024 Rajwinder Johns COPD (chronic obstructive pulmonary disease) J44.9 ; COPD exacerbation J44.1 ; COVID-19 virus infection U07.1 ; Uncontrolled type 2 diabetes mellitus with hyperglycemia E11.65 ; Type 2 diabetes mellitus with diabetic neuropathy, unspecified E11.40 ; Long-term current use of injectable noninsulin antidiabetic medication Z79.85 and longterm (current) use of insulin Z79.[address] [address] 03/25/2024 Rajwinder Johns 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 kidney disease, or unspecified chronic kidney disease I13.0 ; Chronic diastolic (congestive) heart failure I50.32 ; Stage 3a chronic kidney disease N18.31 ; COPD (chronic obstructive pulmonary disease) J44.9 ; Type 2 diabetes mellitus with diabetic neuropathy, unspecified E11.40 ; termite helper (current) use of insulin Z79.4 ; Major depressive disorder, recurrent episode, moderate F33.1 ; Mixed incontinence N39.46 ; Recurrent UTI (urinary tract infection) N39.0 ; RAHCNA (generalized anxiety disorder) F41.1 ; ALDO on CPAP G47.33 ; 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 ; 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 ; S/P eye surgery Z98.890 ; Long-term current use of injectable noninsulin antidiabetic medication Z79.85 ; Restless legs syndrome (RLS) G25.81 and Polymyalgia rheumatica M35.[address] [address] 04/04/2024 Rajwinder Johns Uncontrolled type 2 diabetes mellitus with hyperglycemia E11.65 ; Type 2 diabetes mellitus with diabetic neuropathy, unspecified E11.40 ; Mixed incontinence N39.46 ; Recurrent UTI (urinary tract infection) N39.0 and Dysuria R30.[address] [address] 12/02/2024 Rajwinder Johns History of falling Z91.[address] [address] 02/03/2025 Rajwinder Johns Diarrhea, unspecifie d R19.7 [facility] [address] [facility] [address] [place] [address] 10/27/2024 Rajwinder Johns Arthritis, low back M47.819 [...] N18.32 and Seasonal allergic reaction J30.2 [facility] [address] [place] [address] 03/08/2024 Rajwinder Johns COPD (chronic obstructive pulmonary disease) J44.9 ; COPD exacerbation J44.1 and COVID-19 virus infection U07.1 Assessments Encounter Date Diagnosis (ICD Code) Assessment Notes Treatment Notes Treatment Clinical Notes Section Notes 02/24/2024 Hypertensive heart and chronic kidney disease [...] - Observe fluid restrictions if advised by client analyst/PCP - Continue routine F/U with client analyst and PCP - Contact provider or call [...] pulmologist later today - Dr. Frederick of [place] - Continue medications and inhalers as prescribed [...] sat 98% - Had follow up with project construction assistant manager - Continue medications and inhalers as prescribed [...] - Observe fluid restrictions if advised by client analyst/PCP - Continue routine F/U with client analyst and PCP - Contact provider or call [...] sat 98% - Had follow up with project construction assistant manager - Continue medications and inhalers as prescribed [...] sat 98% - Had follow up with project construction assistant manager - Continue medications and inhalers as prescribed [...] sat 98% - Had follow up with project construction assistant manager - Continue medications and inhalers as prescribed [...] sat 98% - Had follow up with project construction assistant manager - Continue medications and inhalers as prescribed [...] sat 98% - Had follow up with project construction assistant manager - Continue medications and inhalers as prescribed [...] sat 98% - Had follow up with project construction assistant manager - Continue medications and inhalers as prescribed [...] to music. - Member considering assistance from [facility] - Follow up with PCP routinely, [...] to music. - Member considering assistance from [facility] but declines today - Follow up [...] listening to music. - Member agreeable to [facility] referral today - Follow up with [...] left with him - Member agreeable to [facility] referral today - Follow up with [...] listening to music. - Member agreeable to [facility] referral - In process - Follow up with PCP routinely, and prescriber - Angie Mccray, advised to make her aware of [facility] referral to community therapist - Reminded to [...] listening to music. - Member agreeable to [facility] referral - In process - Follow up with PCP routinely, and prescriber - Angie Mccray, advised to make her aware of [facility] referral to community therapist - Reminded to [...] listening to music. - Member agreeable to [facility] referral - In process - Follow up with PCP routinely, and prescriber - Angie Mccray, advised to make her aware of [facility] referral to community therapist - Reminded to [...] listening to music. - Member agreeable to [facility] referral - awaiting contact - Follow up with PCP routinely, and prescriber - Angie Mccray as scheduled - Reminded to call [...] pathways around bedroom, apartment in general - Son/PAPER BOX CUTTER asked to help with this - Refer [...] to minimize risk of unwanted weight loss 01/27/2025 COPD (chronic obstructive pulmonary disease) (ICD-10 - [...] to minimize risk of unwanted weight loss 01/27/2025 Recurrent UTI (urinary tract infection) (ICD-10 - N39.0) N39.6 Mixed Incontinence Chronic/Labile - continues with complaints, seen at PCP office and repeat UA, C&S done - Completed recent course of cefpodoxime - Reviewed personal hygeine and changing pad/brief frequently - Educated to manage chronic conditions like DM - Avoid bladder irritants like caffeine, smoking - Report any sxs of infection or retention immediately to prescribers for ongoing w/u and mgmt Continue to f/u with Pcp 01/30/2025 COPD (chronic obstructive pulmonary disease) (ICD-10 - J44.9) J96.11 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 Chronic/Stable - no sxs of exacerbation - Continue medications and inhalers as prescribed - Educated member on importance of O2 use as prescribed - Avoid triggers as possible - avoid hot humid outdoor exposure; run air conditioners in home - Monitor for increased dyspnea or productive cough as first signs of exacerbation - Report any changes in symptoms or worsening SOB to providers/PCP/pulm - Encourage healthy diet to minimize risk of unwanted weight loss 02/03/2025 Diarrhea, unspecified (ICD-10 - R19.7) Acute/Improving Reviewed importance of adequate hydration, avoiding dairy for a few days as well as alcohol, apple juice, and drinks that contain caffeine or artificial sweetners. Limit diet to soft, low-fiber foods and avoid spicy, greasy, or fatty foods until diarrhea has fully resolved. Advised to report blood or mucus in the stool, or melena Reminded patient of this [facility] contact info as well as [facility] for afterhours urgent care. Educated to seek ED eval for gross BRBPR, high fever, s/s of dehydration, or pain 02/14/2025 COPD (chronic obstructive pulmonary disease) (ICD-10 - J44.9) J96.11 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 Chronic/Stable - no sxs of exacerbation - Continue medications and inhalers as prescribed - Educated member on importance of O2 use as prescribed - Avoid triggers as possible - avoid hot humid outdoor exposure; run air conditioners in home - Monitor for increased dyspnea or productive cough as first signs of exacerbation - Report any changes in symptoms or worsening SOB to providers/PCP/pulm - Encourage healthy diet to minimize risk of unwanted weight loss 01/30/2025 Recurrent UTI (urinary tract infection) (ICD-10 - N39.0) N39.6 Mixed Incontinence Chronic/Stable - Recent UTI resolved; no complaints today; UA, C&S done at PCP office one week ago and negative - Reviewed personal hygeine and changing pad/brief frequently - Educated to manage chronic conditions like DM - Avoid bladder irritants like caffeine, smoking - Report any sxs of infection or retention immediately to prescribers for ongoing w/u and mgmt Continue to f/u with Pcp 02/14/2025 Type 2 diabetes mellitus with diabetic neuropathy, unspecified (ICD-10 - E11.40) 01/27/2025 Type 2 diabetes mellitus with diabetic neuropathy, unspecified (ICD-10 - E11.40) 2025 Recurrent UTI (urinary tract infection) (ICD-10 - N39.0) N39.6 Mixed Incontinence Chronic/Labile - continues with complaints, seen at [facility] yesterday and received c/b today no [...] Recommend diabetic diet - offered referral to hospital educator - declines - Discussed potential for [...] medication as prescribed - [facility] - Recommend yearly eye exams, A1c - Recommend diabetic diet - offered referral to hospital educator - declines - Discussed potential for [...] medication as prescribed - Novolog per , [facility] - Recommend yearly eye exams, A1c - Recommend diabetic diet - offered referral to hospital educator - declines - Discussed potential for [...] medication as prescribed - Novolog per , [facility] - Recommend yearly eye exams, A1c - Recommend diabetic diet - offered referral to hospital educator - declines - Discussed potential for [...] medication as prescribed - Novolog per , [facility] - Recommend yearly eye exams, A1c - Recommend diabetic diet - offered referral to hospital educator - declines - Discussed potential for [...] pain/stress on joints - Continue PT at [facility] - Use assistive devices to avoid [...] pain/stress on joints - Continue PT at [facility] - Use assistive devices to avoid [...] pain/stress on joints - Continue PT at [facility] - Use assistive devices [...] pain/stress on joints - Continue PT at [facility] - Use assistive devices [...] pain/stress on joints - Continue PT at [facility] - Use assistive devices to avoid [...] pain/stress on joints - Continue PT at [facility] - Use assistive devices to avoid [...] pain/stress on joints - Continue PT at [facility] - Use assistive devices to avoid [...] to music. - Member declines assistance from [facility] - Follow up with PCP and [...] to music. - Member declines assistance from [facility] - Follow up with PCP and [...] s/s of anxiety. Member declines assistance from [facility] - Follow up with PCP and [...] s/s of anxiety. Member declines assistance from [facility] - Follow up with PCP and [...] s/s of anxiety. Member declines assistance from [facility] - Follow up with PCP and [...] s/s of anxiety. Member declines assistance from [facility] - Follow up with PCP and [...] s/s of anxiety. Member declines assistance from [facility] - Follow up with PCP and [...] s/s of anxiety. Member declines assistance from [facility] - Follow up with PCP and [...] s/s of anxiety. Member declines assistance from [facility] - Follow up with PCP and [...] s/s of anxiety. Member declines assistance from [facility] - Follow up with PCP and [...] diastolic (congestive) heart failure (ICD-10 - I50.32) 02/24/2024 Stage 3a chronic kidney disease (ICD-10 - N18.31) 03/08/2024 COVID-19 virus infection (ICD-10 - U07.1) [...] by controlling BP. Continue to f/u with PCP/Train Attendant routinely 11/04/2024 Hypertensive heart and chronic kidney [...] by controlling BP. Continue to f/u with PCP/Train Attendant routinely 10/28/2024 Dementia, unspecified, without behavioral disturbance [...] by controlling BP. Continue to f/u with PCP/Train Attendant routinely 11/28/2024 Hypertensive heart and chronic kidney [...] by controlling BP. Continue to f/u with PCP/Train Attendant routinely 12/16/2024 Hypertensive heart and chronic kidney [...] by controlling BP. Continue to f/u with PCP/Train Attendant routinely 12/27/2024 Type 2 diabetes mellitus with diabetic neuropathy, unspecified (ICD-10 - E11.40) 2025 Type 2 diabetes mellitus with diabetic neuropathy, unspecified (ICD-10 - E11.40) 01/27/2025 Uncontrolled type 2 diabetes mellitus with hyperglycemia (ICD-10 - E11.65) E11.40 T2DM with diabetic neuropathy LT current use of insulin LT current use of injectable noninsulin antidiabetic medication Chronic/Labile- - Continue medication as prescribed - RE-Start Lantus 20 units daily in hopes of transitioning off Novolog. - Recommend yearly eye exams, A1c - Recommend diabetic diet - Discussed potential for end-organ damage with chronic hyperglycemia - F/U with podiatry (as needed/desired) for regular foot checks - Report any sxs of hypo- or hyperglycemia immediately - F/U with PCP/endocrine for ongoing mgmt/monitoring 02/14/2025 Uncontrolled type 2 diabetes mellitus with hyperglycemia (ICD-10 - E11.65) E11.40 T2DM with diabetic neuropathy LT current use of insulin LT current use of injectable noninsulin antidiabetic medication Chronic/Labile- - Continue medication as prescribed - Lantus 20 units daily in hopes of transitioning off Novolog, May titrate up as needed to 30 units daily to acheive goal BG. - Recommend yearly eye exams, A1c - Recommend diabetic diet - Discussed potential for end-organ damage with chronic hyperglycemia - F/U with podiatry (as needed/desired) for regular foot checks - Report any sxs of hypo- or hyperglycemia immediately - F/U with PCP/endocrine for ongoing mgmt/monitoring 01/30/2025 Type 2 diabetes mellitus with diabetic neuropathy, unspecified (ICD-10 - E11.40) 01/30/2025 Uncontrolled type 2 diabetes mellitus with hyperglycemia (ICD-10 - E11.65) E11.40 T2DM with diabetic neuropathy LT current use of insulin LT current use of injectable noninsulin antidiabetic medication Chronic/Labile- - Continue medication as prescribed - Lantus 20 units daily in hopes of transitioning off Novolog, May titrate up as needed to 30 units daily to acheive goal BG. - Recommend yearly eye exams, A1c - Recommend diabetic diet - Discussed potential for end-organ damage with chronic hyperglycemia - F/U with podiatry (as needed/desired) for regular foot checks - Report any sxs of hypo- or hyperglycemia immediately - F/U with PCP/endocrine for ongoing mgmt/monitoring 02/14/2025 Chronic respiratory failure with hypoxia (ICD-10 - J96.11) 01/27/2025 Chronic respiratory failure with hypoxia (ICD-10 - J96.11) 2025 Uncontrolled type 2 diabetes mellitus with [...] loss - Follow up with PCP and Hydraulic Riveter routinely - Seek ED evaluation for hypoxia, [...] loss - Follow up with PCP and Hydraulic Riveter routinely - Seek ED evaluation for hypoxia, [...] to minimize risk of unwanted weight loss 02/24/2024 Type 2 diabetes mellitus with diabetic [...] respiratory failure with hypoxia (ICD-10 - J96.11) 01/27/2025 termite helper (current) use of insulin (ICD-10 - Z79.4) 2025 Chronic respiratory failure with hypoxia (ICD-10 - J96.11) 01/30/2025 Chronic respiratory failure with hypoxia (ICD-10 - J96.11) 02/14/2025 longterm (current) use of insulin (ICD-10 - Z79.4) 02/14/2025 Long-term current use of injectable noninsulin antidiabetic medication (ICD-10 - Z79.85) 01/30/2025 longterm (current) use of insulin (ICD-10 - Z79.4) 01/27/2025 Long-term current use of injectable noninsulin antidiabetic medication (ICD-10 - Z79.85) 2025 termite helper (current) use of insulin (ICD-10 - Z79.4) 12/27/2024 longterm (current) use of insulin (ICD-10 - Z79.4) [...] disease, stage 3b (ICD-10 - N18.32) 07/07/2024 termite helper (current) use of insulin (ICD-10 - Z79.4) 07/15/2024 Chronic kidney disease, stage 3b (ICD-10 - N18.32) 06/24/2024 termite helper (current) use of insulin (ICD-10 - Z79.4) 03/25/2024 termite helper (current) use of insulin (ICD-10 - Z79.4) 03/10/2024 Long-term current use of injectable noninsulin antidiabetic medication (ICD-10 - Z79.85) 04/07/2024 termite helper (current) use of insulin (ICD-10 - Z79.4) Dx added from [facility] 02/24/2024 termite helper (current) use of insulin (ICD-10 - Z79.4) 02/24/2024 Major depressive disorder, recurrent episode, moderate (ICD-10 - F33.1) F41.1 RACHNA Chronic/Stable - PHQ2 completed by pcp in office today - negative - Reviewed nature of anxiety and depressive sxs - denies sxs of increased worry/sadness - Reviewed nonmedical management techniques - Continue medications as prescribed - Continue outpatient F/U with psych/prescribers and involve [facility] team as appropriate - Monitor for [...] Continue outpatient F/U with psych/prescribers and involve [facility] team as appropriate - Monitor for [...] Continue outpatient F/U with psych/prescribers and involve [facility] team as appropriate - Monitor for increased sxs of depression/anxiety and report acute changes to providers - Utilize emergency services if having sxs of SI/HI/AVH as appropriate 03/10/2024 longterm (current) use of insulin (ICD-10 - Z79.4) [...] Continue outpatient F/U with psych/prescribers and involve [facility] team as appropriate - Monitor for [...] Controlled - Weight gain since home from [facility] - Avoid gaining additional weight and try [...] Controlled - Weight gain since home from [facility] - Avoid gaining additional weight and try [...] Controlled - Weight gain since home from [facility] - Avoid gaining additional weight and try [...] Controlled - Weight gain since home from [facility] - Avoid gaining additional weight and try [...] Controlled - Weight gain since home from [facility] - Avoid gaining additional weight and try [...] Controlled - Weight gain since home from [facility] - Avoid gaining additional weight and try [...] exacerbation Continue nebulizer treatments as prescribed by project construction assistant manager Recommend closing windows, running air purifier or [...] exacerbation Continue nebulizer treatments as prescribed by project construction assistant manager Recommend closing windows, running air purifier or [...] injectable noninsulin antidiabetic medication (ICD-10 - Z79.85) 01/27/2025 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) 2025 Long-term current use of injectable noninsulin antidiabetic medication (ICD-10 - Z79.85) 01/30/2025 Long-term current use of injectable noninsulin antidiabetic medication (ICD-10 - Z79.85) 02/14/2025 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) 02/14/2025 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 kidney disease, or unspecified chronic kidney disease (ICD-10 - I13.0) Chronic/Stable - Denies chest pain, STEPHENS, blurred vision or other acute cardiac complaints - Educated member on importance of medication adherence for BP control - Encouraged DASH eating plan, exercise as tolerated, moderation of EtOH consumption, weight loss if indicated, smoking cessation if indicated - labs to monitor eGFR, UACR. avoid nephrotoxic meds - Recommend measuring and logging home b/p's with goal <140/90, ideally <130/80 - F/U with PCP/client analyst/n ephrologist for ongoing mgmt and monitoring 01/27/2025 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 kidney disease, or unspecified chronic kidney disease (ICD-10 - I13.0) Chronic/Labile -Increase lisinopril - labs to monitor GFR, UACR. avoid [...] as BP remains stable - F/U with PCP/client analyst/n ephrologist for ongoing mgmt and monitoring 01/30/2025 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) 12/27/2024 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) 2025 [...] medication as prescribed - [facility] - Recommend yearly eye exams, A1c - Recommend diabetic diet - offered referral to hospital educator - declines - Discussed potential for [...] medication as prescribed - [facility] - Recommend yearly eye exams, A1c - Recommend diabetic diet - offered referral to hospital educator - declines - Discussed potential for [...] medication as prescribed - Novolog per , [facility] - Recommend yearly eye exams, A1c - Recommend diabetic diet - offered referral to hospital educator - declines - Discussed potential for [...] medication as prescribed - Novolog per SS, [facility] - Recommend yearly eye exams, A1c - Recommend diabetic diet - offered referral to hospital educator - declines - Discussed potential for [...] [facility] 02/24/2024 Mixed incontinence (ICD-10 - N39.46) 02/24/2024 [...] will continue to monitor s/sx UTIs 07/15/2024 termite helper (current) use of insulin (ICD-10 - Z79.4) 07/22/2024 termite helper (current) use of insulin (ICD-10 - Z79.4) [...] will continue to monitor s/sx UTIs 07/28/2024 termite helper (current) use of insulin (ICD-10 - Z79.4) 08/02/2024 longterm (current) use of insulin (ICD-10 - Z79.4) 08/08/2024 termite helper (current) use of insulin (ICD-10 - Z79.4) 08/23/2024 longterm (current) use of insulin (ICD-10 - Z79.4) 08/16/2024 termite helper (current) use of insulin (ICD-10 - Z79.4) 08/30/2024 termite helper (current) use of insulin (ICD-10 - Z79.4) [...] as BP remains stable - F/U with PCP/client analyst/n ephrologist for ongoing mgmt and monitoring 10/28/2024 Other chronic pain (ICD-10 - G89.29) 01/27/2025 Mixed incontinence (ICD-10 - N39.46) 02/14/2025 Chronic kidney disease, stage 4 (severe) (ICD-10 - N18.4) Chronic/Labile Recent decrease in eGFR, worsening kidney disease - Continue ongoing DM mgmt to help prevent progression of disease - Continue ongoing HTN mgmt to help prevent progression of disease - Continue ongoing dietary control and healthy eating choices - Avoid nephrotoxic meds where possible and renally adjust meds where clinically appropriate -Reminded to avoid regular use of Ibuprofen - patient and son verbalize understanding. - F/U with PCP/nephro for ongoing monitoring/mgmt 01/30/2025 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 kidney disease, or unspecified chronic kidney disease (ICD-10 - I13.0) Chronic/Stable - Denies chest pain, STEPHENS, blurred vision or other acute cardiac complaints - Educated member on importance of medication adherence for BP control - Encouraged DASH eating plan, exercise as tolerated, moderation of EtOH consumption, weight loss if indicated, smoking cessation if indicated - labs to monitor eGFR, UACR. avoid nephrotoxic meds - Recommend measuring and logging home b/p's with goal <140/90, ideally <130/80 - F/U with PCP/client analyst/n ephrologist for ongoing mgmt and monitoring 01/27/2025 Chronic kidney disease, stage 4 (severe) (ICD-10 - N18.4) Chronic/Labile Recent decrease in eGFR, worsening kidney disease - Continue ongoing DM mgmt to help prevent progression of disease - Continue ongoing HTN mgmt to help prevent progression of disease - Continue ongoing dietary control and healthy eating choices - Avoid nephrotoxic meds where possible and renally adjust meds where clinically appropriate - F/U with PCP/nephro for ongoing monitoring/mgmt 01/30/2025 Mixed incontinence (ICD-10 - N39.46) 10/28/2024 Chronic dacryocystitis of bilateral lacrimal passages [...] by controlling BP. Continue to f/u with PCP/Train Attendant routinely 10/21/2024 Hypertensive heart and chronic kidney [...] by controlling BP. Continue to f/u with PCP/Train Attendant routinely 10/07/2024 Hypertensive heart and chronic kidney [...] by controlling BP. Continue to f/u with PCP/Train Attendant routinely 09/29/2024 Hypertensive heart and chronic kidney [...] by controlling BP. Continue to f/u with PCP/Train Attendant routinely 09/22/2024 Hypertensive heart and chronic kidney [...] by controlling BP. Continue to f/u with PCP/Train Attendant routinely 09/15/2024 Hypertensive heart and chronic kidney [...] by controlling BP. Continue to f/u with PCP/Train Attendant routinely 08/30/2024 Long-term current use of injectable [...] unspecified chronic kidney disease (ICD-10 - I13.0) 01/30/2025 Chronic kidney disease, stage 4 (severe) (ICD-10 - N18.4) Chronic/Labile Recent decrease in eGFR, worsening kidney disease - Continue ongoing DM mgmt to help prevent progression of disease - Continue ongoing HTN mgmt to help prevent progression of disease - Continue ongoing dietary control and healthy eating choices - Avoid nephrotoxic meds where possible and renally adjust meds where clinically appropriate - F/U with PCP/nephro for ongoing monitoring/mgmt 10/28/2024 Chronic diastolic (congestive) heart failure (ICD-10 [...] joints - Will start outpatient PT at [facility] by next week. - Use [...] PLACE ORDER FOR HOME PEDAL DEVICE THROUGH [employer] 09/15/2024 COPD (chronic obstructive pulmonary disease) (ICD-10 [...] joints - Will start outpatient PT at [facility] by next week. - Use [...] PLACE ORDER FOR HOME PEDAL DEVICE THROUGH [email or web address] [facility] 08/08/2024 Other chronic pain (ICD-10 - [...] joints - Will start outpatient PT at [facility] by next week. - Use [...] PLACE ORDER FOR HOME PEDAL DEVICE THROUGH [employer] 08/16/2024 Other chronic pain (ICD-10 - G89.29) [...] joints - Will start outpatient PT at [facility] by next week. 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 Stenosis of lacrimal duct Chronic/Stable Advised to report any fever, eye pain, acute vision changes, purulent drainage, mlacolm orbital or conjuctival erythema F/u with opthalmologist [...] 10/28/2024 Panlobular emphysema (ICD-10 - J43.1) 10/21/2024 termite helper (current) use of insulin (ICD-10 - Z79.4) 10/14/2024 longterm (current) use of insulin (ICD-10 - Z79.4) 10/28/2024 COPD (chronic obstructive pulmonary disease) (ICD-10 - J44.9) 10/07/2024 termite helper (current) use of insulin (ICD-10 - Z79.4) 09/29/2024 longterm (current) use of insulin (ICD-10 - Z79.4) 09/22/2024 termite helper (current) use of insulin (ICD-10 - Z79.4) 09/15/2024 termite helper (current) use of insulin (ICD-10 - Z79.4) [...] - member requires assistance, cueing for ADL's, PAPER BOX CUTTER for IADL's - f/u PCP prn 07/07/2024 Dementia, unspecified, without behavioral disturbance (ICD-10 - F03.90) Chronic/Stable - Mild memory issue - member is a/o during visit; patient and family deny confusion and wandering - member requires assistance, cueing for ADL's, PAPER BOX CUTTER for IADL's - f/u PCP prn 04/07/2024 Panlobular emphysema (ICD-10 - J43.1) Dx added from [employer] 04/07/2024 Respiratory failure, unspecified with hypoxia (ICD-10 - J96.91) Dx added from [employer] 06/24/2024 Unilateral primary osteoarthritis, left knee (ICD-10 - M17.12) 07/07/2024 Unilateral primary osteoarthritis, left knee (ICD-10 - M17.12) 10/28/2024 termite helper (current) use of insulin (ICD-10 - Z79.4) [...] pain or mobility Continue home PT - [facility] Continue tylenol as needed 06/24/2024 Displaced trimalleolar fracture of right lower leg, subsequent encounter for closed fracture with routine healing (ICD-10 - S82.851D) Subacute/Improving Appropriate healing per Ortho - continue up routinely Wearing a walking boot, ambulating with assistance and use of walker Avoid falls, report changes in pain or mobility Continue home PT - [facility] Continue tylenol as needed 04/07/2024 Chronic [...] Other 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 11/14/2024 Other Plan Of Treatment Next Appt Details Provider Name:Rajwinder jenkins, 02/24/2025 10:45:00 AM, [address], [place], [address], Insurance Providers Payer Name Payer Address Payer Phone Subscriber Number Group Number Insured Name Patient Relationship to Insured Coverage Start Date Coverage End Date [facility] ([id number]) [address] [facility] [facility] [address] [place] [address] [id number] Mine Peacock Self - patient is the insured 3 9 Medical (General) History Medical History History ICD Code Chest pain (resolved 09/26/2023) Extrapyramidal disorder G25.9 Major depressive disorder, recurrent epi sode, moderate F33.1 Urinary incontinence, unspecified type R 32 Acute cystitis without hematuria N30.00 COPD exacerbation (resolved 07/14/2024) undefined COVID-19 virus infection (resolved 07/14) Surgical History Surgery Date(Month/Year) [facility] [place] Right ankle ORIF 04/2024 Hospitalization History Reason Date([facility] 2024 [facility] ED- COPD exac, ?UTI 12/23 [facility] [place] [facility] ED - COPD exac 06/26/2024 [facility] for STR following ankle fracture 05/2024-06/22/2024 [facility] Right bi-malleolar fracture 04/2024 [facility] for dysuria left AMA d/t long wait time 04/03/2024 [facility] bronchitis 02/13/24 [facility] chest and back pain (ACS ruled ou t) 12/04/23 [facility] chest and back pain (ACS ruled ou t) 12/02/23 [facility] - ? Sepsis (ruled out) 11/28- [facility]- COPD exac, UTI 11/17-04/05
--- OUTSIDE RECORDS SUMMARY | 2025-02-20 12:55 | XMS_ITS | Clinical Summary ---
Author Organization [facility] Address [address] [place] [address] Phone Care Team Providers Care Door And Arrival Attendant Name Role Phone Shelbi Perez MD Primary Care Provider [phone] Allergies Active Allergy Reactions Criticality Noted Date Comments Adhesive Tape 08/12/2021 Other reaction(s): skin irritation Fluticasone-Sodium Chloride Other (see comments) 08/12/2021 Trimethobenzamide 07/09/2021 Other reaction(s): GI s/s Medications acetaminophen (TYLENOL) 500 MG tablet Active Albuterol Sulfate 108 (90 Base) MCG/ACT aerosol powder 1 puff by Other route Active Aclidinium [place] (TUDORZA PRESSAIR IN) Inhale 4 Active insulin [...] MINI PEN NEEDLES 31G X 5 MM [facility] USE TO ADMINISTER INSULIN TWICE DAILY 2 [...] to complete this topic Insurance [place] [employer] ([id number]) [place] [facility] DNS:[facility] ([id number]) Care Teams Door And Arrival Attendant Relationship Specialty Start Date End Date Shelbi Perez MD [place] [address] PCP - General Internal Medicine 09/18/21
--- OUTSIDE RECORDS SUMMARY | 2025-02-20 12:55 | XMS_ITS ---
Author Name Vicente Zhao Address [address] [place] [address] Phone [phone] Organization [facility] Care Team Providers Care Bobbin Sorter Name Role Phone Cristin Ogden Unavailable [phone] Reason for Referral Not Available Allergies, adverse [...] Data Available BD UF MINI PEN NEEDLE [id number] USE TO ADM INISTER INSULIN TWICE DAILY [...] Data Available BD UF MINI PEN NEEDLE [id number] USE TO ADM INISTER INSULIN TWICE DAILY [...] Female Functional Status Functional Category Effective Dates TELEPHONE INFORMATION CLERK assists with cooking, cl eaning, laundry, showering and dressing. Pt reports using assistive device of: 2023-03-30 Mental Status Status Date AOx 2023-03-30 Assessments Not Available Plan of Care Not Available
--- NOTE | 2025-02-20 13:20 | A.OFFVIS_ITS ---
Vital Signs 02/20/25 13:22 Height 5 ft 8 in Weight 212 lb BMI 32.2 BP 118/50 L Blood Pressure Location Lt brachial Position Sitting Pulse 76 Pulse Source Pulse Oximeter Pulse Oximetry (%) 95 Oxygen Delivery Method Room Air Intake Visit Reasons: COPD follow-up Intake Note: pt is here for follow up and states she iis having difficulty swallowing/coughing when eating, daytime fatigue, some gasping at night, she possibly has a lump in the center of chest. Screen Printing Inspector Required: No Allergies adhesive tape (ADHESIVE TAPE) Allergy (Intermediate, Verified 02/20/25 13:26) RASH trimethobenzamide (From TIGAN) Allergy (Mild, Verified 02/20/25 13:26) NAUSEA NSAIDS (Non-Steroidal Anti-Inflamma Adverse Reaction (Mild, Verified 02/20/25 13:26) Nephropathy environmental Allergy (Intermediate, Uncoded 02/20/25 13:26) Nasal congestion Medication List - Last Reconciled 02/20/25 by Hong Frederick MD albuterol sulfate 90 mcg/actuation (ProAir HFA) 2 puffs inhalation Q4H PRN albuterol sulfate 2.5 mg (3 mL) inhalation Q4-6H PRN amlodipine 5 mg PO DAILY aspirin 81 mg PO DAILY atorvastatin 80 mg PO DAILY 90 days blood sugar diagnostic (FreeStyle Lite Strips) Use to check blood sugar 3 times a day as needed blood sugar diagnostic (OneTouch Ultra Test strips) Use to check blood sugar 3 times a day as needed blood-glucose meter (OneTouch Ultra2 Meter) Use to check blood sugar twice daily and when having symptoms of hypo/hyperglycemia budesonide 0.5 mg (2 mL) inhalation BID 30 days bupropion HCl XL 150 mg PO DAILY cholecalciferol (vitamin D3) 25 mcg PO DAILY citalopram 20 mg PO DAILY diaper,brief,adult,disposable Use for stress incontinence diaper,brief,adult,disposable Size large adult pull up briefs dulaglutide (Trulicity) 1.5 mg (0.5 mL) subcut QWEEK 30 days furosemide (Lasix) 20 mg PO Q OTHER DAY 20 days gabapentin 900 mg PO BEDTIME gabapentin 300 mg PO ONCE hydroxyzine pamoate 25 mg PO DAILY insulin aspart U-100 (Novolog FlexPen U-100 Insulin aspart) See Protocol sliding scale doses subcut TID insulin glargine (Lantus U-100 Insulin) 20 units (0.2 mL) subcut DAILY 90 days ipratropium-albuterol 0.5 mg-3 mg(2.5 mg base)/3 mL 3 mL inhalation QID 30 days lancets once a day lancets Use to check blood sugar twice daily and when having symptoms of hypo/hyperglycemia lisinopril 20 mg PO DAILY 90 days montelukast 10 mg PO DAILY nebulizers (AeroEclipse II Nebulizer) As directed oxygen-air delivery systems As directed pen needle, diabetic (BD Ultra-Fine Mini Pen Needle) Use to administer insulin twice daily pen needle, diabetic check blood sugar four times per a day ropinirole 2 mg PO BID Shower Chair Shower chair with back and arm rests trazodone 200 mg PO BEDTIME walker Wheeled walker with seat and brakes Do you need a note to return to daycare/school/sports/work: No HPI HPI COPD follow-up: Details: KATJA, 75 YEARS OLD FEMALE, WITH MULTIPLE COMORBIDITIES, IMPAIRED LOCOMOTION, COMES IN A WHEELCHAIR, HER SON WHO IS HER STOCKFEED MILLER, BRINGS HER INTO THE OFFICE. SHE HAD THE SAME USUAL COMPLAINTS INCLUDING I GET SHORT OF BREATH ON MINIMAL EXERTION , AND GENERAL WEAKNESS. BUT IN REALITY SHE IS TOTALLY UNCHANGED FROM BEFORE. SHE HAS HAD NO ACUTE EXACERBATION. SHE COMPLAINS OF SOME DIFFICULTY IN SWALLOWING BUT REALLY HAS HAD NO CHOKING EPISODES. SLEEPS FAIRLY WELL IN A PROPPED UP POSITION, USES O2 2 L/MINUTE AT NIGHT. [facility] Medical History Exercise hypoxemia Recurrent UTI COPD (chronic obstructive pulmonary disease) Uncontrolled diabetes mellitus Depression, major, recurrent Dysuria Kidney stone on left side Diabetes 1.5, managed as type 1 COPD (chronic obstructive pulmonary disease) Respiratory failure with hypoxia Urinary tract infection Hypoxemia Morbid obesity CKD (chronic kidney disease) Anemia COPD exacerbation Allergic rhinitis ALDO (obstructive sleep apnea) Obesity (BMI 30-39.9) Constipation due to opioid therapy Osteoarthritis of left knee Hx SBO Hyperlipidemia CPAP (continuous positive airway pressure) dependence History of adrenal adenoma Osteochondroma of left femur Arthritis Diabetes Elevated cholesterol History of restless legs syndrome History of diverticulitis GERD (gastroesophageal reflux disease) Surgical History H/O excision of mass History of oophorectomy History of cholecystectomy History of appendectomy History of arthroscopy of left knee History of partial colectomy Hx of cataract extraction H/O exploratory laparotomy H/O colonoscopy History of surgery History of hysterectomy Family History Father HTN (hypertension) Diabetes mellitus Mother HTN (hypertension) Liver cancer Social History 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: Other 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 Other:: ex- has been staying over Housing: House Are you a primary veterinarian laboratory animal care to a significant other at home: No Do you presently have visiting nurse or other home services: Yes Unable to assess alcohol history related to: Unknown Alcohol intake: never Comment: PT SLEEPING Patient Tobacco Use Status: Never used Tobacco e-Cigarette/Vaping Use: Never Used Second Hand Smoke Exposure: No Advance Directives Date on File: 10/22/23 service: No Current occupational status: retired Cognitive needs: No Hearing needs: No Vision needs: No Female Reproductive History Menstrual Age of Menarche: 13 Review of Systems Const All systems reviewed & are unremarkable except as noted in HPI and below Eyes Reports no additional complaints ENT Reports nasal congestion (Intermittent) Card Denies chest pain, Denies irregular heart rhythm, Reports leg edema and Reports dyspnea Resp Reports as per HPI and Reports dyspnea GI Reports no additional complaints Reports no additional complaints Musc Reports abnormal gait (Impaired gait due to weakness of lower extremities, has to use a walker), Reports back pain and Reports limited range of motion Skin/Breast Reports system reviewed and no additional complaints, except as documented Neuro Reports abnormal gait (Impaired gait due to weakness of lower extremities, has to use a walker) Endo Reports other (Being treated for diabetes mellitus with diabetic neuropathy) Physical Exam Const General: comfortable (But very weak), no acute distress, alert and awake Orientation/consciousness: patient oriented x3 HEENT Head: Yes normal to inspection General nose exam: No nasal polyps present, No nasal discharge present and Other nasal findings present (Mild nasal congestion) Face and sinus: Yes sinuses nontender Mouth: oropharynx normal Throat: Yes posterior oropharynx normal Eyes General: appearance normal, both eyes and all related structures Neck Neck: Yes normal visual inspection, Yes no lymphadenopathy, Yes trachea midline and Yes no JVD Thyroid: Thyroid normal Chest Chest palpation & inspection: normal inspection of the chest, normal palpation of entire chest wall and no tenderness Resp Other: Percussion note is resonant, breath sounds are very decreased over the basilar areas. No audible wheezes rhonchi or creps. Cardio Palpation: normal PMI Rate: regular rate Rhythm: regular rhythm Heart sounds: no gallops and no murmurs GI Palpation (GI): Soft to palpation, nontender, No hepatosplenomegaly present, no masses and Other GI palpation findings present (Abdomen is obese and prot uberant) Auscultation: normal bowel sounds Back/Spine/Pelvis Thoracic/Lumbar Spine: thoracic and lumbar spine normal to inspection and thoraco-lumbar ROM limited Skin General skin exam: no rashes or lesions noted Neuro General: patient oriented x3 and no focal motor deficits Cranial nerves: Yes CN's II-XII intact bilaterally Extrem General: Yes normal to inspection, Yes no calf tenderness, Yes edema (ONLY MINIMAL AT THIS TIME.) and Yes venous stasis dermatitis Psych Appearance: grossly normal Speech and movement: Normal speech and movement present Assessment & Plan Assessment & Plan (1) COPD (chronic obstructive pulmonary disease): Comment: DESMOND HAS LONGSTANDING HISTORY OF COPD, CURRENTLY STABLE WITH THE USE OF MEDS, HER CURRENT REGIMEN IS ARRANGED TO, MINIMIZE HER CO-PAYMENT. Code(s): J44.9 - Chronic obstructive pulmonary disease, unspecified Category: Medical Qualifiers: COPD type: emphysema Emphysema type: panlobular Qualified Code(s): J43.1 - Panlobular emphysema Plan: ADVISED TO CONTINUE USING IPRATROPIUM-ALBUTEROL SOLUTION IN THE NEBULIZER Q 6 HOURS WHILE AWAKE. AND USE ALBUTEROL SOLUTION IN THE NEBULIZER Q 4-6 HOURS BUT ONLY P.R.N.. BUDESONIDE 0.5 MG SOLUTION IN THE NEBULIZER B.I.D. (2) Respiratory failure with hypoxia: Comment: This patient definitely has nocturnal hypoxemia as well as Exercise induced Hypoxemia . Use of POC not effective as she is mouth breather Code(s): J96.91 - Respiratory failure, unspecified with hypoxia Category: Medical Plan: ADVISED TO USE STATIONARY O2 CONCENTRATOR, AND USE O2 2 L/MINUTE AT NIGHT. ALSO USE O2 2 L/MINUTE P.R.N. DURING THE DAY IF THERE IS INCREASED SHORTNESS OF BREATH . (3) Restrictive airway disease: Comment: Patient has restrictive lung disorder related to obesity. She has moderately severe restrictive pulmonary disorder mainly due to her obesity. Code(s): J98.4 - Other disorders of lung Category: Medical Plan: SHE DOES HAVE INCENTIVE SPIROMETER AT HOME AND IS ADVISED TO DO DEEP BREATHING EXERCISES AT LEAST 3 TIMES A DAY . (4) ALDO (obstructive sleep apnea): Comment: Patient does have obstructive sleep apnea as expected, But not able to use the CPAP She also has associated nocturnal hypoxemia. Code(s): G47.33 - Obstructive sleep apnea (adult) (pediatric) Category: Medical Plan: JUST USE O2 2 L/MINUTE AT NIGHT Coding Level of Care Code Est Pt Level 3 (46030) Diagnoses Panlobular emphysema J43.1 COPD type: emphysema Emphysema type: panlobular Respiratory failure with hypoxia J96.91 Restrictive airway disease J98.4 ALDO (obstructive sleep apnea) G47.33
[2025-02-20 13:22] VITALS: BP 118/50; PULSE 76; O2SAT 95; BMI 32.2
== END 2025-02-20 13:40 | disposition home or self-care (01) ==
LOC: HO.HPS 12:50
PROVIDERS: PCP Internal Medicine; Visit Provider Internal Medicine
DX: J43.1 Panlobular emphysema (principal); J96.91 Respiratory failure, unspecified with hypoxia; J98.4 Other disorders of lung; G47.33 Obstructive sleep apnea (adult) (pediatric)
CPT/HCPCS: 99213

== ENCOUNTER → 2025-02-20 12:49 | Outpatient (BNVA) | payer OTHER, SELFPAY | PROVIDERS: PCP Internal Medicine; Visit Provider Internal Medicine | DX: J43.1 Panlobular emphysema (principal); J96.91 Respiratory failure, unspecified with hypoxia; J98.4 Other disorders of lung; G47.33 Obstructive sleep apnea (adult) (pediatric); Z99.89 Dependence on other enabling machines and devices; E66.9 Obesity, unspecified | CPT/HCPCS: 99212 ==

== ENCOUNTER 2025-03-28 09:30 | Outpatient (AMB) | payer OTHER, SELFPAY ==
--- OUTSIDE RECORDS SUMMARY | 2024-05-06 05:00 | XMS_ITS ---
Author Organization [facility] Address [address] [place] [address] Care Team Providers Care Certified Prosthetist Name Role Phone Chris BROWNE, Shelbi Primary Care Provider UnavailNik Haynes Unavailable [phone] Encounters Encounter Location Date Provider Diagnosis [address] [address] 05/06/2024 Nik Hernandez Plan Of Treatment Next Appt Details Provider Name:Nik Hernandez , 04/04/2025 10:00:00 AM, [address] [place] [address], [phone], Progress Notes * AYUSHMaryeDOB:1950 ( 75 yo F)Acc No.[id number]:05/06/2024 Progress Note Patient: Mine MIMS Provider: Nicolás Hernandez DPM :1950 A ge:74 Y S ex:Female Date:05/06/2024 Address:[address] [place] [address] Pcp:Shelbi Perez MD Subjective: * Chief Complaints: [...] Date: 1 Generated for Judah locke/Wendy/Kyle on: 0 03/28/2025 12:05 PM EDT
--- OUTSIDE RECORDS SUMMARY | 2025-02-21 05:30 | XMS_ITS ---
Author Organization [facility] Address [address] [place] [address] Care Team Providers Care Pressing Machine Tender Name Role Phone Chris BROWNE, Shelbi Primary Care Provider Unavailabl Nik Shankar Unavailable [phone] Lopez Encounters Encounter Location Date Provider Diagnosis [address] [address] 02/21/2025 Nik Hernandez Plan Of Treatment Next Appt Details Provider Name:Nik Hernandez , 04/04/2025 10:00:00 AM, [address] [place] [address], [phone], Progress Notes * Mary PEACOCKeDOB:1950 ( 75 yo F)Acc No.[id number]:02/21/2025 Progress Note Patient: Matthew MIMSlene Provider: Nicolás Hernandez DPM :1950 A ge:75 Y S ex:Female Date:02/21/2025 Address:[address] [place] [address] Pcp:Shelbi Perez MD Subjective: * Chief Complaints: [...] 0 02/21/2025 Generated for Judah Owens on: 0 03/28/2025 12:04 PM EDT
--- NOTE | 2025-03-28 09:43 | A.OFFVIS_ITS ---
Vital Signs 03/28/25 09:45 Height 5 ft Weight 213 lb BMI 41.6 BP 138/72 Blood Pressure Location Rt brachial Position Sitting Respiration 16 Pulse 71 Pulse Oximetry (%) 92 Intake Visit Reasons: RLS Medical Technologist Chief Required: No Allergies adhesive tape (ADHESIVE TAPE) Allergy (Intermediate, Verified 03/28/25 09:47) RASH trimethobenzamide (From TIGAN) Allergy (Mild, Verified 03/28/25 09:47) NAUSEA NSAIDS (Non-Steroidal Anti-Inflamma Adverse Reaction (Mild, Verified 03/28/25 09:47) Nephropathy environmental Allergy (Intermediate, Uncoded 03/28/25 09:47) Nasal congestion HPI Comments Details: The patient is a 75-year-old female presenting with Restless Legs Syndrome. She has been experiencing symptoms for some time and is currently on pramipexole 0.5 mg three times daily and gabapentin 300 mg twice daily, which have been effective in managing her symptoms. Without medication, she experiences severe discomfort throughout the day, which she describes as a sensation of her legs being stuck. She denies cramping or pain. The patient also reports balance issues, which have not resulted in falls but make it difficult for her to walk or get out of a car. She has not yet undergone physical therapy for balance, although a referral was previously made but not followed up. She uses a walker at home and a wheelchair for longer distances due to her unsteadiness. Additionally, the patient reports sleep disturbances, getting only five to six hours of sleep per night, primarily due to nocturia. She does not experience snoring or sleep apnea symptoms but finds it difficult to return to sleep after waking. [facility] Medical History (Updated 03/28/25 @ 10:08 by Lidia Boyer CNP) Exercise hypoxemia Recurrent UTI COPD (chronic obstructive pulmonary disease) Uncontrolled diabetes mellitus Depression, major, recurrent Dysuria Kidney stone on left side Diabetes 1.5, managed as type 1 COPD (chronic obstructive pulmonary disease) Respiratory failure with hypoxia Urinary tract infection Hypoxemia Morbid obesity CKD (chronic kidney disease) Anemia COPD exacerbation Allergic rhinitis ALDO (obstructive sleep apnea) Obesity (BMI 30-39.9) Constipation due to opioid therapy Osteoarthritis of left knee Hx SBO Hyperlipidemia CPAP (continuous positive airway pressure) dependence History of adrenal adenoma Osteochondroma of left femur Arthritis Diabetes Elevated cholesterol History of restless legs syndrome History of diverticulitis GERD (gastroesophageal reflux disease) Surgical History H/O excision of mass History of oophorectomy History of cholecystectomy History of appendectomy History of arthroscopy of left knee History of partial colectomy Hx of cataract extraction H/O exploratory laparotomy H/O colonoscopy History of surgery History of hysterectomy Family History Father HTN (hypertension) Diabetes mellitus Mother HTN (hypertension) Liver cancer Social History 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: Other 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 Other:: ex- has been staying over Housing: House Are you a primary care director rn to a significant other at home: No Do you presently have visiting nurse or other home services: Yes Unable to assess alcohol history related to: Unknown Alcohol intake: never Comment: PT SLEEPING Patient Tobacco Use Status: Never used Tobacco e-Cigarette/Vaping Use: Never Used Second Hand Smoke Exposure: No Advance Directives Date on File: 10/22/23 service: No Current occupational status: retired Cognitive needs: No Hearing needs: No Vision needs: No Female Reproductive History Menstrual Age of Menarche: 13 Review of Systems Const Reports as per HPI Physical Exam Vital Signs: Last Vital Signs Pulse 71 03/28/25 09:45 Resp 16 03/28/25 09:45 BP 138/72 03/28/25 09:45 Pulse Ox 92 03/28/25 09:45 BMI result Body Mass Index 41.6 Const General: cooperative, healthy appearing, comfortable and no acute distress Nutritional Appearance: well nourished Orientation/consciousness: patient oriented x3 Limitations: no limitations HEENT Head: Yes normal to inspection and Yes normocephalic Eyes General: appearance normal, both eyes and all related structures Visual Nation: normal visual nation by confrontation Alignment and Position: alignment normal Periorbital: periorbital findings normal Eyelids: Yes eyelids normal Conjunctivae: conjunctivae normal Sclerae: sclerae normal Neuro General: patient oriented x3 and deep tendon reflexes 2+ bilaterally Cranial nerves: Yes CN's II-XII intact bilaterally and Yes Facial sensation intact/muscles of mastication intact Cognition (Neuro): normal cognition Gait exam (Neuro): Antalgic gait present and Wide-based gait present Motor exam (neuro): 5/5 motor strength present throughout (4/5 throughout) and no tremor noted Sensory Exam: double simultaneous stimulation for sensation normal Romberg Test: Negative Pupils: Normal pupillary reactivity/response: bilateral Psych Appearance: grossly normal Mental Status: mental status grossly normal Speech and movement: Normal speech and movement present and Clear speech present Affect: normal affect Attitude: cooperative Thought process: Normal thought process present Thought content: Normal thought content present Insight: Good insight present (Psych) Judgement: Good judgement present (Psych) Assessment & Plan Assessment & Plan (1) Imbalance: Code(s): R26.89 - Other abnormalities of gait and mobility Category: Medical Plan The patient is currently managed on pramipexole and gabapentin, which have been effective in controlling her symptoms. Alternative treatments such as magnesium and quinine water were discussed as adjunct options if symptoms worsen. The plan includes continuing the current medication regimen and considering physical th erapy to address balance issues. The patient reports sleep disturbances primarily due to nocturia, affecting her overall sleep quality. No interventions were discussed during this visit, but monitoring of symptoms is advised. Could consider increase in HS Gabapentin dose. -Continue current regimen -Gait PT (pt requesting JOSE [facility]) -Follow-up in 6 months Medications: Refilled gabapentin 300 mg PO ONCE 90 caps 2RF ropinirole 2 mg PO BID 90 tabs 0RF Coding Level of Care Code Est Pt Level 4 (57340) Diagnoses Imbalance R26.89
[2025-03-28 09:45] VITALS: BP 138/72; PULSE 71; RESP 16; O2SAT 92; BMI 41.6
--- OUTSIDE RECORDS SUMMARY | 2025-03-28 12:04 | XMS_ITS | Patient Health Record ---
Author Organization [facility] Address [address] [place] [address] Care Team Providers Care Litigation Assistant Name Role Phone José Manuel Bowman MD Primary Care Provider UnavailEllis Bernabe Unavailable [phone] Wallace Graham MD Unavailable Unavailable Allergies Allergen (clinical drug ingredient) Drug/Non Drug Allergy documented on EMR Reaction Allergy Type Onset Date Status trimethobenzamide Tigan Unknown Drug Allergy Active Reason For Referral No Information Problems Problem Type SNOMED Code ICD Code Onset Dates Problem Status W/U Status Risk Notes Problem Ulcerative colitis (23448045) Ulcerative colitis (K51.90) Active confirmed Plan Of Treatment No Information Insurance Providers Payer Name Payer Address Payer Phone Subscriber Number Group Number Insured Name Patient Relationship to Insured Coverage Start Date Coverage End Date MEDICARE OF [place] [address] [place] [id number] DESMOND BROOKE Self - patient is the insured MEDICAID OF [facility] [address] [place] [address] [id number] DESMOND BROOKE Self - patient is the insured Medical (General) History Medical History History ICD Code colonoscopy 11-09-2006 gerd Surgical History Surgery Date(Month/Year) cholecystectomy hysterectomy with oophorectomy D&C and tubal ligation
--- OUTSIDE RECORDS SUMMARY | 2025-03-28 12:05 | XMS_ITS | Patient Health Record ---
Author Organization [facility] liance Address [address] [place] [address] Care Team Providers Care Space Studies Faculty Member Name Role Phone Chris Karinasid Primary Care Provider Unavailabl e Janay Opal Unavailable [phone] Clinical, Operations Unavailable Unavailable Rajwinder Johns Unavailable [phone] Allergies No Known Allergies Results Component Value Reference Range Notes Urinalysis, Complete-[id number] Reviewed date:04/05/2024 01:13:47 PM Interpretation: Performing Lab:[facility], [address] [facility], [place], Phone - [phone], Director - Deb Notes/Report: Clinical Information:SRC: SRC: Clinical Information:SRC: SRC: Specific [place] 1.010 1.005-1.030 pH 7.5 5.0-7.5 Urine-Color Yellow [...] Bacteria None seen None seen/Few Urine Culture, Routine-[id number] Reviewed date:04/06/2024 12:04:52 PM Interpretation: Performing Lab:[facility] [place], [address], [address], [place], Phone - [phone], Director - [facility] Notes/Report: Clinical Information:SRC:UC SRC:UC Clinical Information:SRC:UC SRC:UC Urine Culture, Routine Final report Result 1 Mixed urogenital rhina 50,000-100,000 colony forming units per mL Reason For Referral No Information Medications Medication SIG (Take, Route, Frequency, Duration) Notes Start Date End Date Status Lantus SoloStar 100 UNIT/ML 20 units Subcutaneous daily; Duration: 30 days Active Tylenol Extra Strength 500 MG 1 tablet as needed Orally every 6 hrs Active Albuterol Sulfate (2.5 MG/3ML) 0.083% 3 mL as needed Inhalation every 6 hrs PRN only Active Vitamin D3 125 MCG (5000 UT) 1 capsule Orally Once a day; Duration: 90 days Active Albuterol Sulfate HFA 108 (90 Base) MCG/ACT 1 puff as needed Inhalation every 4 hrs PRN Active Cyclobenzaprine HCl 10 MG 1 tablet at bedtime as needed Orally Once a day DC per member Not-Taking Budesonide 2 MG/10ML 10 mL Orally Twice a day bid Dr. Frederick Active rOPINIRole HCl 2 MG 1 tablet Orally Twice a day Active Multivitamin - 1 tablet Orally Once a day Active Lisinopril 20 MG 1 tablet Orally Once a day Active Insulin Aspart FlexPen 100 UNIT/ML as directed Subcutaneous Sliding scale TID Active traZODone HCl 150 MG 1 tablet at bedtime Orally Once a day Active Montelukast Sodium 10 MG 1 tablet Orally Once a day Active Oxygen Concentrator 2-3 liters 2lPM as needed to maintain 2 sat 88-92% continuous 2L PRN Active Atorvastatin Calcium 80 MG 1 tablet Orally Once a day Active Dulaglutide 3 MG/0.5ML as directed Subcutaneous weekly Active amLODIPine Besylate 5 MG 1 tablet Orally Once a day Re-started per Dr. Perez Active Gabapentin 300 MG as directed Orally once a day at HS PCP decreased dose 10/2024 Active hydrOXYzine HCl 25 MG as directed Orally twice a day PRN anxiety Active Ipratropium-Albuterol 0.5-2.5 (3) MG/3ML 3 mL as needed Inhalation every [address] Frederick Active buPROPion HCl ER (SR) 150 MG 1 tablet in the morning Orally Once a day Active Citalopram Hydrobromide 10 MG 1 tablet Orally Once a day Active [facility] Fluticasone Propionate 50 MCG/ACT 1 spray in each nostril Nasally Twice a day; Duration: 30 days Active Aspirin 81 MG 1 tablet Orally Once a day; Duration: 90 days Active Loratadine 10 MG 1 tablet Orally Once a day; Duration: 30 days Active Problems Problem Type SNOMED Code ICD Code Onset Dates Problem Status W/U Status Risk Notes Problem Vitamin D deficiency (13701780) Vitamin D deficiency, unspecified (E55.9) Active confirmed Problem Dysuria (29715298) Dysuria (R30.0) Inactive confirmed Problem Type II diabetes mellitus without complication (567550751) Diabetes (E11.9) Inactive confirmed Problem Obstructive sleep apnea syndrome (12462317) ALDO on CPAP (G47.33) Active confirmed Problem Chest pain (30129143) Chest pain (R07.9) Problem resolved confirmed Problem Heart failure (63887367) Heart failure, unspecified (I50.9) Inactive confirmed Problem History of fall (492595467) History of falling (Z91.81) Active confirmed Problem Hypertension (57831422) HTN (hypertension) (I10) Inactive confirmed Problem Acute exacerbation of chronic obstructive airways disease (544758348) COPD exacerbation (J44.1) Problem resolved confirmed Problem COPD - Chronic obstructive pulmonary disease (58694948) COPD (chronic obstructive pulmonary disease) (J44.9) Active confirmed Problem Dyspnea (104580098) Dyspnea (R06.00) Inactive confirmed Problem Mixed incontinence (774981450) Mixed incontinence (N39.46) Active confirmed Problem Generalized anxiety disorder (36350764) RACHNA (generalized anxiety disorder) (F41.1) Active confirmed Problem Chronic kidney disease (049617447) CKD (chronic kidney disease) (N18.9) Inactive confirmed Problem Polyneuropathy (16020552) Polyneuropathy (G62.9) Inactive confirmed Problem Moderate recurrent major depression (00719199) Major depressive disorder, recurrent episode, moderate (F33.1) Active confirmed Problem Polymyalgia rheumatica (34352902) Polymyalgia rheumatica (M35.3) Active confirmed Problem Restless legs (64526909) Restless legs syndrome (RLS) (G25.81) Active confirmed Problem Dependence on supplemental oxygen (635049397265) 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) Active confirmed Problem Dementia (73942857) Dementia, unspecified, without behavioral disturbance (F03.90) Active confirmed Problem Chronic respiratory failure (70337068) Chronic respiratory failure with hypoxia (J96.11) Active confirmed Problem Chronic kidney disease stage 4 (532481058) Chronic kidney disease, stage 4 (severe) (N18.4) Active confirmed Problem Urinary tract infectious disease (26521018) Recurrent UTI (urinary tract infection) (N39.0) Active confirmed Problem Osteoarthritis of knee (276369750) Unilateral primary osteoarthritis, left knee (M17.12) Active confirmed Problem Extrapyramidal disorder (99068176) Extrapyramidal disorder (G25.9) Active confirmed Problem Chronic dacryocystitis (78507434) 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) Active confirmed Problem Panlobular emphysema (8125093) Panlobular emphysema (J43.1) Active confirmed Problem Displaced trimalleolar fracture of right lower leg, subsequent encounter for closed fracture with routine healing (S82.851D) Active confirmed Problem Spondylosis without myelopathy (51919323) Arthritis, low back (M47.819) Active confirmed Problem Diarrhea (55224043) Diarrhea, unspecified (R19.7) Active confirmed Problem Chronic pain (20286225) Other chronic pain (G89.29) Active confirmed Problem Long-term current use of insulin (594303459) bed bug exterminator (current) use of insulin (Z79.4) Active confirmed Problem Chronic diastolic heart failure (152206647) Chronic diastolic (congestive) heart failure (I50.32) Active confirmed Problem 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 failure (79136262498429) 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 kidney disease, or unspecified chronic kidney disease (I13.0) Active confirmed Problem Diabetic peripheral neuropathy associated with type 2 diabetes mellitus (6645221722989) Type 2 diabetes mellitus with diabetic neuropathy, unspecified (E11.40) Active confirmed Problem Morbid obesity (disorder) (907139359) Morbid (severe) obesity due to excess calories (E66.01) Active confirmed Problem Abrasion of skin (47615203) Skin abrasion (T14.8XXA) Active confirmed Problem Hyperglycemia due to type 2 diabetes mellitus (195652461818703) Uncontrolled type 2 diabetes mellitus with hyperglycemia (E11.65) Active confirmed Problem Disease caused by Severe acute respiratory syndrome coronavirus 2 (disorder) (334012165) COVID-19 virus infection (U07.1) Problem resolved confirmed Problem COVID-19 (663213836) COVID-19 (U07.1) Inactive confirmed Problem Chronic kidney disease stage 3A (059232623) Stage 3a chronic kidney disease (N18.31) Inactive confirmed Problem Body mass index 40+ - severely obese (121775689) Body mass index [BMI] 40.0-44.9, adult (Z68.41) Active confirmed Problem Diabetic on non-insulin injectable medication (finding) (803682631) Long-term current use of injectable noninsulin antidiabetic medication (Z79.85) Active confirmed Problem Acquired nasolacrimal duct stenosis (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) 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) Inactive confirmed Problem Late effect of fracture of lower extremities (63272695) Closed displaced trimalleolar fracture of right ankle, sequela (S82.851S) Inactive confirmed Vital Signs Heart Rate 73 /min 03/21/2025 Temperature 98.4 degrees Fahrenheit 03/21/2025 Respiratory Rate 18 /min 03/21/2025 Height-cm 152.4 cm 02/14/2025 Oximetry 97 % 03/21/2025 Blood pressure diastolic 72 mm Hg 03/21/2025 Weight-kg 96.16 kg 02/14/2025 Height 60 in 02/14/2025 Blood pressure systolic 138 mm Hg 03/21/2025 Weight 212 lbs 02/14/2025 BMI 41.4 kg/m2 02/14/2025 Encounters Encounter Location Date Provider Diagnosis [facility] [address] [place] [address] 04/04/2024 Rajwinder Johns [facility] [address] [place] [address] 09/26/2024 Rajwinder Johns [facility] [address] [place] [address] 10/10/2024 Rajwinder Johns [facility] [address] [place] [address] 10/10/2024 Rajwinder Johns [facility] [address] [place] [address] 12/02/2024 Rajwinder Johns [facility] [address] [place] [address] 06/24/2024 Rajwinder Johns 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 kidney disease, or unspecified chronic kidney disease I13.0 ; Chronic diastolic (congestive) heart failure I50.32 ; Stage 3a chronic kidney disease N18.31 ; COPD (chronic obstructive pulmonary disease) J44.9 ; Type 2 diabetes mellitus with diabetic neuropathy, unspecified E11.40 ; bed bug exterminator (current) use of insulin Z79.4 ; Major [...] dependent Z99.81 and Other chronic pain G89.[address] [address] 06/30/2024 Rajwinder Johns COPD (chronic obstructive pulmonary disease) J44.9 and RACHNA (generalized anxiety disorder) F41.1 [facility] [address] [place] [address] 04/15/2024 Rajwinder Johns Closed displaced trimalleolar fracture of right ankle, sequela S82.851S [facility] [address] [place] [address] 10/28/2024 Operations Clinical Type 2 diabetes mellitus [...] closed fracture with routine healing S82.851D ; residential (current) use of insulin Z79.4 ; Long-term current use of injectable noninsulin antidiabetic medication Z79.85 ; 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 ; Morbid (severe) obesity due to excess calories E66.01 ; Body mass index [BMI] 40.0-44.9, adult Z68.41 ; Skin abrasion T14.8XXA and Seasonal allergic reaction J30.2 [facility] [address] [place] [address] 04/07/2024 Operations Clinical COPD (chronic obstructive pulmonary disease) J44.9 ; 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 kidney disease, or unspecified chronic kidney disease I13.0 ; Chronic diastolic (congestive) heart failure I50.32 ; Stage 3a chronic kidney disease N18.31 ; Uncontrolled type 2 diabetes mellitus with hyperglycemia E11.65 ; bed bug exterminator (current) use of insulin Z79.4 ; Type [...] left knee M17.12 and Polymyalgia rheumatica M35.[address] [address] 07/05/2024 Rajwinder Johns COPD (chronic obstructive pulmonary disease) J44.9 ; RACHNA (generalized anxiety disorder) F41.1 and 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 [address] 07/07/2024 Rajwinder Johns 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 kidney disease, or unspecified chronic kidney disease I13.0 ; Chronic diastolic (congestive) heart failure I50.32 ; Stage 3a chronic kidney disease N18.31 ; COPD (chronic obstructive pulmonary disease) J44.9 ; Type 2 diabetes mellitus with diabetic neuropathy, unspecified E11.40 ; residential (current) use of insulin Z79.4 ; Major [...] dependent Z99.81 and Other chronic pain G89.[address] [address] 07/15/2024 Rajwinder Johns COPD (chronic obstructive pulmonary disease) J44.9 ; RACHNA (generalized anxiety disorder) F41.1 ; 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 ; Type 2 diabetes mellitus with diabetic neuropathy, unspecified E11.40 ; Uncontrolled type 2 diabetes mellitus with hyperglycemia E11.65 ; Chronic kidney disease, stage 3b N18.32 ; Morbid (severe) obesity due to excess calories E66.01 ; Body mass index [BMI] 40.0-44.9, adult Z68.41 ; bed bug exterminator (current) use of insulin Z79.4 ; Long-term current use of injectable noninsulin antidiabetic medication Z79.85 and 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 kidney disease, or unspecified chronic kidney disease I13.[address] [address] 07/22/2024 Rajwinder Johns COPD (chronic obstructive pulmonary disease) J44.9 ; RACHNA (generalized anxiety disorder) F41.1 ; 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 ; Type 2 diabetes mellitus with diabetic neuropathy, unspecified E11.40 ; Uncontrolled type 2 diabetes mellitus with hyperglycemia E11.65 ; Chronic kidney disease, stage 3b N18.32 ; Morbid (severe) obesity due to excess calories E66.01 ; Body mass index [BMI] 40.0-44.9, adult Z68.41 ; bed bug exterminator (current) use of insulin Z79.4 ; Long-term current use of injectable noninsulin antidiabetic medication Z79.85 and 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 kidney disease, or unspecified chronic kidney disease I13.[address] [address] 07/28/2024 Rajwinder Johns COPD (chronic obstructive pulmonary disease) J44.9 ; RACHNA (generalized anxiety disorder) F41.1 ; 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 ; Type 2 diabetes mellitus with diabetic neuropathy, unspecified E11.40 ; Uncontrolled type 2 diabetes mellitus with hyperglycemia E11.65 ; Chronic kidney disease, stage 3b N18.32 ; Morbid (severe) obesity due to excess calories E66.01 ; Body mass index [BMI] 40.0-44.9, adult Z68.41 ; bed bug exterminator (current) use of insulin Z79.4 ; Long-term current use of injectable noninsulin antidiabetic medication Z79.85 and 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 kidney disease, or unspecified chronic kidney disease I13.[address] [address] 08/02/2024 Rajwinder Johns COPD (chronic obstructive pulmonary disease) J44.9 ; RACHNA (generalized anxiety disorder) F41.1 ; 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 ; Type 2 diabetes mellitus with diabetic neuropathy, unspecified E11.40 ; Uncontrolled type 2 diabetes mellitus with hyperglycemia E11.65 ; Chronic kidney disease, stage 3b N18.32 ; Morbid (severe) obesity due to excess calories E66.01 ; Body mass index [BMI] 40.0-44.9, adult Z68.41 ; residential (current) use of insulin Z79.4 ; Long-term current use of injectable noninsulin antidiabetic medication Z79.85 and 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 kidney disease, or unspecified chronic kidney disease I13.[address] [address] 08/08/2024 Rajwinder Nat COPD (chronic obstructive pulmonary disease) J44.9 ; RACHNA (generalized anxiety disorder) F41.1 ; 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 ; Type 2 diabetes mellitus with diabetic neuropathy, unspecified E11.40 ; Uncontrolled type 2 diabetes mellitus with hyperglycemia E11.65 ; Chronic kidney disease, stage 3b N18.32 ; Morbid (severe) obesity due to excess calories E66.01 ; Body mass index [BMI] 40.0-44.9, adult Z68.41 ; bed bug exterminator (current) use of insulin Z79.4 ; Long-term [...] encounter for closed fracture with routine healing S82.1D [address] [address] 08/16/2024 Rajwinder Johns COPD (chronic obstructive pulmonary disease) J44.9 ; RACHNA (generalized anxiety disorder) F41.1 ; 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 ; Type 2 diabetes mellitus with diabetic neuropathy, unspecified E11.40 ; Uncontrolled type 2 diabetes mellitus with hyperglycemia E11.65 ; Chronic kidney disease, stage 3b N18.32 ; Morbid (severe) obesity due to excess calories E66.01 ; Body mass index [BMI] 40.0-44.9, adult Z68.41 ; bed bug exterminator (current) use of insulin Z79.4 ; Long-term [...] for closed fracture with routine healing S82.851D [address] [address] 08/23/2024 Rajwinder Nat COPD (chronic obstructive pulmonary disease) J44.9 ; RACHNA (generalized anxiety disorder) F41.1 ; 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 ; Type 2 diabetes mellitus with diabetic neuropathy, unspecified E11.40 ; Uncontrolled type 2 diabetes mellitus with hyperglycemia E11.65 ; Chronic kidney disease, stage 3b N18.32 ; Morbid (severe) obesity due to excess calories E66.01 ; Body mass index [BMI] 40.0-44.9, adult Z68.41 ; residential (current) use of insulin Z79.4 ; Long-term [...] for closed fracture with routine healing S82.851D [address] [address] 08/30/2024 Rajwinder Johns COPD (chronic obstructive pulmonary disease) J44.9 ; RACHNA (generalized anxiety disorder) F41.1 ; 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 ; Type 2 diabetes mellitus with diabetic neuropathy, unspecified E11.40 ; Uncontrolled type 2 diabetes mellitus with hyperglycemia E11.65 ; Chronic kidney disease, stage 3b N18.32 ; Morbid (severe) obesity due to excess calories E66.01 ; Body mass index [BMI] 40.0-44.9, adult Z68.41 ; residential (current) use of insulin Z79.4 ; Long-term [...] routine healing S82.851D and Skin abrasion T14.8XXA [address] [place] [address] 09/01/2024 Rajwinder Johns RACHNA (generalized anxiety disorder) F41.1 ; Other chronic pain G89.29 ; Unilateral primary osteoarthritis, left knee M17.12 ; Arthritis, low back M47.819 ; Displaced trimalleolar fracture of right lower leg, subsequent encounter for closed fracture with routine healing S82.851D ; Skin abrasion T14.8XXA and Major depressive disorder, recurrent episode, moderate F33.1 [facility] [address] [facility] [place] [address] 09/08/2024 Rajwinder Johns RACHNA (generalized anxiety disorder) F41.1 ; Other chronic pain G89.29 ; Unilateral primary osteoarthritis, left knee M17.12 ; Arthritis, low back M47.819 ; Displaced trimalleolar fracture of right lower leg, subsequent encounter for closed fracture with routine healing S82.851D ; Skin abrasion T14.8XXA and Major depressive disorder, recurrent episode, moderate F33.[address] [place] [address] 09/15/2024 Rajwinder Johns RACHNA (generalized anxiety disorder) [...] disease) J44.9 ; 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 ; residential (current) use of insulin Z79.4 ; Long-term current use of injectable noninsulin antidiabetic medication Z79.85 ; Chronic kidney disease, stage 3b N18.32 and Morbid (severe) obesity due to excess calories E66.[address] [place] [address] 09/22/2024 Rajwinder Johns RACHNA (generalized anxiety disorder) [...] disease) J44.9 ; 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 ; residential (current) use of insulin Z79.4 ; Long-term current use of injectable noninsulin antidiabetic medication Z79.85 ; Chronic kidney disease, stage 3b N18.32 and Morbid (severe) obesity due to excess calories E66.[address] [place] [address] 09/29/2024 Rajwinder Johns RACHNA (generalized anxiety disorder) [...] disease) J44.9 ; 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 ; bed bug exterminator (current) use of insulin Z79.4 ; Long-term current use of injectable noninsulin antidiabetic medication Z79.85 ; Chronic kidney disease, stage 3b N18.32 and Morbid (severe) obesity due to excess calories E66.01 [facility] [address] [facility] [place] [address] 10/07/2024 Rajwinder Johns RACHNA (generalized anxiety disorder) [...] disease) J44.9 ; 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 ; residential (current) use of insulin Z79.4 ; Long-term current use of injectable noninsulin antidiabetic medication Z79.85 ; Chronic kidney disease, stage 3b N18.32 and Morbid (severe) obesity due to excess calories E66.[address] [address] 10/14/2024 Rajwinder Johns RACHNA (generalized anxiety disorder) [...] disease) J44.9 ; 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 ; residential (current) use of insulin Z79.4 ; Long-term current use of injectable noninsulin antidiabetic medication Z79.85 ; Chronic kidney disease, stage 3b N18.32 and Morbid (severe) obesity due to excess calories E66.[address] [address] 10/21/2024 Rajwinder Johns RACHNA (generalized anxiety disorder) [...] disease) J44.9 ; 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 ; bed bug exterminator (current) use of insulin Z79.4 ; Long-term current use of injectable noninsulin antidiabetic medication Z79.85 ; Chronic kidney disease, stage 3b N18.32 and Morbid (severe) obesity due to excess calories E66.[address] [address] 11/04/2024 Rajwinder Johns Arthritis, low back M47.819 [...] 3b N18.32 and Seasonal allergic reaction J30.2 [facility] [address] [place] [address] 11/14/2024 Rajwinder Johns Arthritis, low back M47.819 ; Type 2 diabetes mellitus with diabetic neuropathy, unspecified E11.40 ; 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 kidney disease, or unspecified chronic kidney disease I13.0 ; COPD (chronic obstructive pulmonary disease) J44.9 ; 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 and Chronic kidney disease, stage 3b N18.[address] [address] 11/28/2024 Rajwinder Evansard Arthritis, low back M47.819 ; Type 2 diabetes mellitus with diabetic neuropathy, unspecified E11.40 ; 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 kidney disease, or unspecified chronic kidney disease I13.0 ; COPD (chronic obstructive pulmonary disease) J44.9 ; 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 and Chronic kidney disease, stage 3b N18.[address] [address] 04/27/2024 Rajwinder Evansard Closed displaced trimalleolar fracture of right ankle, sequela S82.851S [place] [address] [address] 06/06/2024 Rajwinder Evansard Displaced trimalleolar fracture of right lower leg, subsequent encounter for closed fracture with routine healing S82.851D [address] [address] 04/04/2024 Rajwinder Evansard Uncontrolled type 2 diabetes mellitus with hyperglycemia E11.65 ; Type 2 diabetes mellitus with diabetic neuropathy, unspecified E11.40 ; Mixed incontinence N39.46 ; Recurrent UTI (urinary tract infection) N39.0 and Dysuria R30.[address] [address] 12/16/2024 Rajwinder Nat Arthritis, low back M47.819 ; Type 2 diabetes mellitus with diabetic neuropathy, unspecified E11.40 ; 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 kidney disease, or unspecified chronic kidney disease I13.0 ; COPD (chronic obstructive pulmonary disease) J44.9 ; 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 and Chronic kidney disease, stage 3b N18.[address] [address] 12/27/2024 Rajwinder Johns COPD (chronic obstructive pulmonary disease) J44.9 ; Recurrent UTI (urinary tract infection) N39.0 ; Type 2 diabetes mellitus with diabetic neuropathy, unspecified E11.40 ; Uncontrolled type 2 diabetes mellitus with hyperglycemia E11.65 ; Chronic respiratory failure with hypoxia J96.11 ; residential (current) use of insulin Z79.4 ; Long-term current use of injectable noninsulin antidiabetic medication Z79.85 and 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 [address] 2025 Rajwinder Johns COPD (chronic obstructive pulmonary disease) J44.9 ; Recurrent UTI (urinary tract infection) N39.0 ; Type 2 diabetes mellitus with diabetic neuropathy, unspecified E11.40 ; Uncontrolled type 2 diabetes mellitus with hyperglycemia E11.65 ; Chronic respiratory failure with hypoxia J96.11 ; bed bug exterminator (current) use of insulin Z79.4 ; Long-term current use of injectable noninsulin antidiabetic medication Z79.85 ; 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 ; 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 kidney disease, or unspecified chronic kidney disease I13.0 ; Chronic kidney disease, stage 3b N18.32 ; Vitamin D deficiency, unspecified E55.9 and Mixed incontinence N39.[address] [address] 01/27/2025 Rajwinder Johns COPD (chronic obstructive pulmonary disease) J44.9 ; Recurrent UTI (urinary tract infection) N39.0 ; Type 2 diabetes mellitus with diabetic neuropathy, unspecified E11.40 ; Uncontrolled type 2 diabetes mellitus with hyperglycemia E11.65 ; Chronic respiratory failure with hypoxia J96.11 ; bed bug exterminator (current) use of insulin Z79.4 ; Long-term current use of injectable noninsulin antidiabetic medication Z79.85 ; 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 ; 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 kidney disease, or unspecified chronic kidney disease I13.0 ; Mixed incontinence N39.46 and Chronic kidney disease, stage 4 (severe) N18.[address] [address] 01/30/2025 Rajwinder Johns COPD (chronic obstructive pulmonary disease) J44.9 ; Recurrent UTI (urinary tract infection) N39.0 ; Type 2 diabetes mellitus with diabetic neuropathy, unspecified E11.40 ; Uncontrolled type 2 diabetes mellitus with hyperglycemia E11.65 ; Chronic respiratory failure with hypoxia J96.11 ; bed bug exterminator (current) use of insulin Z79.4 ; Long-term current use of injectable noninsulin antidiabetic medication Z79.85 ; 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 ; 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 kidney disease, or unspecified chronic kidney disease I13.0 ; Mixed incontinence N39.46 and Chronic kidney disease, stage 4 (severe) N18.[address] [address] 02/14/2025 Rajwinder Johns COPD (chronic obstructive pulmonary disease) J44.9 ; Type 2 diabetes mellitus with diabetic neuropathy, unspecified E11.40 ; Uncontrolled type 2 diabetes mellitus with hyperglycemia E11.65 ; Chronic respiratory failure with hypoxia J96.11 ; bed bug exterminator (current) use of insulin Z79.4 ; Long-term current use of injectable noninsulin antidiabetic medication Z79.85 ; 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 ; 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 kidney disease, or unspecified chronic kidney disease I13.0 and Chronic kidney disease, stage 4 (severe) N18.[address] [address] 02/24/2025 Rajwinder Johns COPD (chronic obstructive pulmonary disease) J44.9 ; Type 2 diabetes mellitus with diabetic neuropathy, unspecified E11.40 ; Uncontrolled type 2 diabetes mellitus with hyperglycemia E11.65 ; Chronic respiratory failure with hypoxia J96.11 ; bed bug exterminator (current) use of insulin Z79.4 ; Long-term current use of injectable noninsulin antidiabetic medication Z79.85 ; 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 ; 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 kidney disease, or unspecified chronic kidney disease I13.0 and Chronic kidney disease, stage 4 (severe) N18.[address] [address] 03/09/2025 Rajwinder Johns COPD (chronic obstructive pulmonary disease) J44.9 ; Type 2 diabetes mellitus with diabetic neuropathy, unspecified E11.40 ; Uncontrolled type 2 diabetes mellitus with hyperglycemia E11.65 ; Chronic respiratory failure with hypoxia J96.11 ; residential (current) use of insulin Z79.4 ; Long-term current use of injectable noninsulin antidiabetic medication Z79.85 ; 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 ; 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 kidney disease, or unspecified chronic kidney disease I13.0 and Chronic kidney disease, stage 4 (severe) N18.[address] [address] 03/21/2025 Rajwinder Johns COPD (chronic obstructive pulmonary disease) J44.9 ; Type 2 diabetes mellitus with diabetic neuropathy, unspecified E11.40 ; Uncontrolled type 2 diabetes mellitus with hyperglycemia E11.65 ; Chronic respiratory failure with hypoxia J96.11 ; bed bug exterminator (current) use of insulin Z79.4 ; Long-term current use of injectable noninsulin antidiabetic medication Z79.85 ; 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 ; 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 kidney disease, or unspecified chronic kidney disease I13.0 and Chronic kidney disease, stage 4 (severe) N18.[address] [address] 02/03/2025 Rajwinder Johns Diarrhea, unspecifie d R19.[address] [address] 12/02/2024 Rajwinder Johns History of falling Z91.81 [facility] [address] [address] 10/27/2024 Rajwinder Johns Arthritis, low back M47.819 [...] 3b N18.32 and Seasonal allergic reaction J30.2 Assessments Encounter Date Diagnosis (ICD Code) Assessment Notes Treatment Notes Treatment Clinical Notes Section Notes 04/04/2024 Uncontrolled type 2 diabetes mellitus with [...] - Observe fluid restrictions if advised by onboarding specialist/PCP - Continue routine F/U with onboarding specialist and PCP - Contact provider or call [...] pulmologist later today - Dr. Frederick of [facility] - Continue medications and inhalers as prescribed [...] sat 98% - Had follow up with psychodramatist - Continue medications and inhalers as prescribed [...] - Observe fluid restrictions if advised by onboarding specialist/PCP - Continue routine F/U with onboarding specialist and PCP - Contact provider or call [...] sat 98% - Had follow up with psychodramatist - Continue medications and inhalers as prescribed [...] sat 98% - Had follow up with psychodramatist - Continue medications and inhalers as prescribed [...] sat 98% - Had follow up with psychodramatist - Continue medications and inhalers as prescribed [...] sat 98% - Had follow up with psychodramatist - Continue medications and inhalers as prescribed [...] sat 98% - Had follow up with psychodramatist - Continue medications and inhalers as prescribed [...] sat 98% - Had follow up with psychodramatist - Continue medications and inhalers as prescribed [...] Mccray, advised to make her aware of [facility] referral to community therapist - [...] Mccray, advised to make her aware of [facility] referral to community therapist - [...] agreeable to [facility] referral - awaiting contact - Follow up [...] pathways around bedroom, apartment in general - Son/BAR TURNER asked to help with this - Refer [...] to minimize risk of unwanted weight loss 02/24/2025 COPD (chronic obstructive pulmonary disease) (ICD-10 - [...] to minimize risk of unwanted weight loss 03/09/2025 COPD (chronic obstructive pulmonary disease) (ICD-10 - [...] to minimize risk of unwanted weight loss 03/21/2025 COPD (chronic obstructive pulmonary disease) (ICD-10 - [...] to minimize risk of unwanted weight loss 03/09/2025 Type 2 diabetes mellitus with diabetic neuropathy, unspecified (ICD-10 - E11.40) 02/24/2025 Type 2 diabetes mellitus with diabetic neuropathy, unspecified (ICD-10 - E11.40) 03/21/2025 Type 2 diabetes mellitus with diabetic neuropathy, unspecified (ICD-10 - E11.40) 02/14/2025 Type 2 diabetes mellitus with diabetic neuropathy, unspecified (ICD-10 - E11.40) 01/30/2025 Recurrent UTI (urinary tract infection) (ICD-10 [...] and mgmt Continue to f/u with Pcp 01/27/2025 Type 2 diabetes mellitus with diabetic neuropathy, unspecified (ICD-10 - E11.40) 2025 Recurrent UTI (urinary tract infection) (ICD-10 - N39.0) N39.6 Mixed Incontinence Chronic/Labile - continues with complaints, seen at [facility] yesterday and received c/b today no [...] Recommend diabetic diet - offered referral to unit educator - declines - Discussed potential for [...] Recommend diabetic diet - offered referral to unit educator - declines - Discussed potential for [...] Recommend diabetic diet - offered referral to unit educator - declines - Discussed potential for [...] medication as prescribed - Novolog per , trulicity weekly - Recommend yearly eye exams, A1c - Recommend diabetic diet - offered referral to unit educator - declines - Discussed potential for [...] Recommend diabetic diet - offered referral to unit educator - declines - Discussed potential for [...] pain/stress on joints - Continue PT at [facility] - Use assistive devices [...] pain/stress on joints - Continue PT at [facility] - Use assistive devices [...] pain/stress on joints - Continue PT at [facility] - Use assistive devices [...] pain/stress on joints - Continue PT at [facility] - Use assistive devices [...] pain/stress on joints - Continue PT at [facility] - Use assistive devices [...] pain/stress on joints - Continue PT at [facility] - Use assistive devices [...] pain/stress on joints - Continue PT at [facility] - Use assistive devices [...] disease (ICD-10 - I13.0) Dx added from [employer] 04/04/2024 Type 2 diabetes mellitus with diabetic [...] - F/U with PCP/endocrine for ongoing mgmt/monitoring 04/04/2024 Mixed incontinence (ICD-10 - N39.46) 04/07/2024 Chronic diastolic (congestive) heart failure (ICD-10 - I50.32) Dx added from [employer] 06/24/2024 Stage 3a chronic kidney disease (ICD-10 [...] by controlling BP. Continue to f/u with PCP/Database Modeler routinely 11/04/2024 Hypertensive heart and chronic kidney [...] by controlling BP. Continue to f/u with PCP/Database Modeler routinely 10/28/2024 Dementia, unspecified, without behavioral disturbance [...] by controlling BP. Continue to f/u with PCP/Database Modeler routinely 11/28/2024 Hypertensive heart and chronic kidney [...] by controlling BP. Continue to f/u with PCP/Database Modeler routinely 12/16/2024 Hypertensive heart and chronic kidney [...] by controlling BP. Continue to f/u with PCP/Database Modeler routinely 12/27/2024 Type 2 diabetes mellitus with [...] with diabetic neuropathy, unspecified (ICD-10 - E11.40) 02/14/2025 Uncontrolled type 2 diabetes mellitus with [...] - F/U with PCP/endocrine for ongoing mgmt/monitoring 03/21/2025 Uncontrolled type 2 diabetes mellitus with hyperglycemia [...] - F/U with PCP/endocrine for ongoing mgmt/monitoring 02/24/2025 Uncontrolled type 2 diabetes mellitus with hyperglycemia [...] - F/U with PCP/endocrine for ongoing mgmt/monitoring 03/09/2025 Uncontrolled type 2 diabetes mellitus with hyperglycemia [...] - F/U with PCP/endocrine for ongoing mgmt/monitoring 03/21/2025 Chronic respiratory failure with hypoxia (ICD-10 - J96.11) 03/09/2025 Chronic respiratory failure with hypoxia (ICD-10 - J96.11) 02/24/2025 Chronic respiratory failure with hypoxia (ICD-10 - J96.11) 01/30/2025 Uncontrolled type 2 diabetes mellitus with [...] and ipratropium for wheezing PRN per Dr. Fredercik recommendation - Educated member on importance of [...] loss - Follow up with PCP and Digestion Operator routinely - Seek ED evaluation for hypoxia, dyspnea, chest pain 04/04/2024 Recurrent UTI (urinary tract infection) (ICD-10 - N39.0) 04/07/2024 Stage 3a chronic kidney disease (ICD-10 - N18.31) Dx added from [employer] 06/24/2024 COPD (chronic obstructive pulmonary disease) (ICD-10 [...] loss - Follow up with PCP and Digestion Operator routinely - Seek ED evaluation for hypoxia, dyspnea, chest pain 04/07/2024 Uncontrolled type 2 diabetes mellitus with hyperglycemia (ICD-10 - E11.65) Dx added from [employer] 04/04/2024 Dysuria (ICD-10 - R30.0) N39.46 Mixed incontinence N39.0 Recurrent UTI Acute/recurrent - member reports frequent UTI. lexenlty reports dysuria, pressure and frequent urination, Denies [...] for [facility] for acute s/sx's after hours/weekends 06/24/2024 Type 2 diabetes mellitus with diabetic [...] failure with hypoxia (ICD-10 - J96.11) 01/27/2025 bed bug exterminator (current) use of insulin (ICD-10 - Z79.4) 2025 Chronic respiratory failure with hypoxia (ICD-10 - J96.11) 01/30/2025 Chronic respiratory failure with hypoxia (ICD-10 - J96.11) 02/14/2025 residential (current) use of insulin (ICD-10 - Z79.4) 02/24/2025 bed bug exterminator (current) use of insulin (ICD-10 - Z79.4) 03/09/2025 residential (current) use of insulin (ICD-10 - Z79.4) 03/21/2025 bed bug exterminator (current) use of insulin (ICD-10 - Z79.4) 03/21/2025 Long-term current use of injectable noninsulin antidiabetic medication (ICD-10 - Z79.85) 03/09/2025 Long-term current use of injectable noninsulin antidiabetic medication (ICD-10 - Z79.85) 02/24/2025 Long-term current use of injectable noninsulin antidiabetic medication (ICD-10 - Z79.85) 02/14/2025 Long-term current use of injectable noninsulin antidiabetic medication (ICD-10 - Z79.85) 01/30/2025 bed bug exterminator (current) use of insulin (ICD-10 - Z79.4) 01/27/2025 Long-term current use of injectable noninsulin antidiabetic medication (ICD-10 - Z79.85) 2025 bed bug exterminator (current) use of insulin (ICD-10 - Z79.4) 12/27/2024 bed bug exterminator (current) use of insulin (ICD-10 - Z79.4) [...] disease, stage 3b (ICD-10 - N18.32) 07/07/2024 residential (current) use of insulin (ICD-10 - Z79.4) 07/15/2024 Chronic kidney disease, stage 3b (ICD-10 - N18.32) 06/24/2024 bed bug exterminator (current) use of insulin (ICD-10 - Z79.4) 04/07/2024 residential (current) use of insulin (ICD-10 - Z79.4) Dx added from [facility] 04/07/2024 Type 2 diabetes mellitus with diabetic [...] Controlled - Weight gain since home from [facility] - Avoid gaining additional weight [...] Controlled - Weight gain since home from [facility] - Avoid gaining additional weight [...] Controlled - Weight gain since home from [facility] - Avoid gaining additional weight [...] Controlled - Weight gain since home from [facility] - Avoid gaining additional weight [...] Controlled - Weight gain since home from [facility] - Avoid gaining additional weight [...] exacerbation Continue nebulizer treatments as prescribed by psychodramatist Recommend closing windows, running air purifier or [...] exacerbation Continue nebulizer treatments as prescribed by psychodramatist Recommend closing windows, running air purifier or [...] Z79.85) 02/14/2025 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) 02/24/2025 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) 03/09/2025 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) 03/21/2025 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) 03/09/2025 Hypertensive heart and chronic kidney disease with [...] goal <140/90, ideally <130/80 - F/U with PCP/onboarding specialist/n ephrologist for ongoing mgmt and monitoring 02/24/2025 Hypertensive heart and chronic kidney disease with [...] goal <140/90, ideally <130/80 - F/U with PCP/onboarding specialist/n ephrologist for ongoing mgmt and monitoring 03/21/2025 Hypertensive heart and chronic kidney disease with [...] goal <140/90, ideally <130/80 - F/U with PCP/onboarding specialist/n ephrologist for ongoing mgmt and monitoring 02/14/2025 Hypertensive heart and chronic kidney disease [...] goal <140/90, ideally <130/80 - F/U with PCP/onboarding specialist/n ephrologist for ongoing mgmt and monitoring 01/27/2025 [...] as BP remains stable - F/U with PCP/onboarding specialist/n ephrologist for ongoing mgmt and monitoring 01/30/2025 [...] Continue medication as prescribed - Novolog per bayron MANRIQUEZ weekly - Recommend yearly eye exams, A1c - Recommend diabetic diet - offered referral to unit educator - declines - Discussed potential for [...] medication as prescribed - Novolog per , [place] weekly - Recommend yearly eye exams, A1c - Recommend diabetic diet - offered referral to unit educator - declines - Discussed potential for [...] medication as prescribed - Novolog per , trulicity weekly - Recommend yearly eye exams, A1c - Recommend diabetic diet - offered referral to unit educator - declines - Discussed potential for [...] medication as prescribed - Novolog per , trulicity weekly - Recommend yearly eye exams, A1c - Recommend diabetic diet - offered referral to unit educator - declines - Discussed potential for [...] (ICD-10 - F33.1) Dx added from [employer] 04/07/2024 Mixed incontinence (ICD-10 - N39.46) Dx added from [employer] 06/24/2024 Recurrent UTI (urinary tract infection) (ICD-10 - N39.0) N39.46 Mixed incontinence Chronic/Labile Member uses pads on a daily basis. - Educated member to watch for signs of skin breakdown, and UTI (fever, pain or odor w/ urination, flank pain), call provider w/ any new symptoms - member reports frequent UTI. lexeny denies urinary s/sx. Denies pain or buring [...] will continue to monitor s/sx UTIs 07/15/2024 bed bug exterminator (current) use of insulin (ICD-10 - Z79.4) 07/22/2024 bed bug exterminator (current) use of insulin (ICD-10 - Z79.4) [...] will continue to monitor s/sx UTIs 07/28/2024 residential (current) use of insulin (ICD-10 - Z79.4) 08/02/2024 residential (current) use of insulin (ICD-10 - Z79.4) 08/08/2024 residential (current) use of insulin (ICD-10 - Z79.4) 08/23/2024 residential (current) use of insulin (ICD-10 - Z79.4) 08/16/2024 residential (current) use of insulin (ICD-10 - Z79.4) 08/30/2024 residential (current) use of insulin (ICD-10 - Z79.4) [...] as BP remains stable - F/U with PCP/onboarding specialist/n ephrologist for ongoing mgmt and monitoring 10/28/2024 Other chronic pain (ICD-10 - G89.29) 01/27/2025 Mixed incontinence (ICD-10 - N39.46) 02/24/2025 Chronic kidney disease, stage 4 (severe) (ICD-10 [...] - F/U with PCP/nephro for ongoing monitoring/mgmt 02/14/2025 Chronic kidney disease, stage 4 (severe) [...] goal <140/90, ideally <130/80 - F/U with PCP/onboarding specialist/n ephrologist for ongoing mgmt and monitoring 03/09/2025 Chronic kidney disease, stage 4 (severe) (ICD-10 [...] - F/U with PCP/nephro for ongoing monitoring/mgmt 03/21/2025 Chronic kidney disease, stage 4 (severe) (ICD-10 [...] - F/U with PCP/nephro for ongoing monitoring/mgmt 01/27/2025 Chronic kidney disease, stage 4 (severe) [...] by controlling BP. Continue to f/u with PCP/Database Modeler routinely 10/21/2024 Hypertensive heart and chronic kidney [...] by controlling BP. Continue to f/u with PCP/Database Modeler routinely 10/07/2024 Hypertensive heart and chronic kidney [...] by controlling BP. Continue to f/u with PCP/Database Modeler routinely 09/29/2024 Hypertensive heart and chronic kidney [...] by controlling BP. Continue to f/u with PCP/Database Modeler routinely 09/22/2024 Hypertensive heart and chronic kidney [...] by controlling BP. Continue to f/u with PCP/Database Modeler routinely 09/15/2024 Hypertensive heart and chronic kidney [...] by controlling BP. Continue to f/u with PCP/Database Modeler routinely 08/30/2024 Long-term current use of injectable [...] (generalized anxiety disorder) (ICD-10 - F41.1) 06/24/2024 ALDO on CPAP (ICD-10 - G47.33) [...] (ICD-10 - F41.1) Dx added from [facility] 07/07/2024 ALDO on CPAP (ICD-10 - G47.33) [...] joints - Will start outpatient PT at [facility] by next week. - Use assistive [...] PLACE ORDER FOR HOME PEDAL DEVICE THROUGH [employer] 09/15/2024 COPD (chronic obstructive pulmonary disease) (ICD-10 [...] joints - Will start outpatient PT at [facility] by next week. - Use assistive [...] PLACE ORDER FOR HOME PEDAL DEVICE THROUGH [email or web address] [facility] 08/08/2024 Other chronic pain (ICD-10 - [...] joints - Will start outpatient PT at [facility] by next week. - Use assistive [...] PLACE ORDER FOR HOME PEDAL DEVICE THROUGH [email or web address] [facility] 08/16/2024 Other chronic pain (ICD-10 - [...] joints - Will start outpatient PT at [facility] by next week. 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) 04/07/2024 ALDO on CPAP (ICD-10 - G47.33) Dx added from [facility] 04/07/2024 Extrapyramidal disorder (ICD-10 - G25.9) Dx [...] 10/28/2024 Panlobular emphysema (ICD-10 - J43.1) 10/21/2024 residential (current) use of insulin (ICD-10 - Z79.4) 10/14/2024 bed bug exterminator (current) use of insulin (ICD-10 - Z79.4) 10/28/2024 COPD (chronic obstructive pulmonary disease) (ICD-10 - J44.9) 10/07/2024 residential (current) use of insulin (ICD-10 - Z79.4) 09/29/2024 residential (current) use of insulin (ICD-10 - Z79.4) 09/22/2024 bed bug exterminator (current) use of insulin (ICD-10 - Z79.4) 09/15/2024 bed bug exterminator (current) use of insulin (ICD-10 - Z79.4) [...] (ICD-10 - N39.0) Dx added from [facility] 04/07/2024 COPD exacerbation (ICD-10 - J44.1) Dx [...] (ICD-10 - H04.413) Dx added from [facility] 04/07/2024 S/P eye surgery (ICD-10 - Z98.890) [...] - member requires assistance, cueing for ADL's, BAR TURNER for IADL's - f/u PCP prn 07/07/2024 Dementia, unspecified, without behavioral disturbance (ICD-10 - F03.90) Chronic/Stable - Mild memory issue - member is a/o during visit; patient and family deny confusion and wandering - member requires assistance, cueing for ADL's, BAR TURNER for IADL's - f/u PCP prn 04/07/2024 Panlobular emphysema (ICD-10 - J43.1) Dx added from [facility] 04/07/2024 Respiratory failure, unspecified with hypoxia (ICD-10 - J96.91) Dx added from [employer] 06/24/2024 Unilateral primary osteoarthritis, left knee (ICD-10 - M17.12) 07/07/2024 Unilateral primary osteoarthritis, left knee (ICD-10 - M17.12) 10/28/2024 residential (current) use of insulin (ICD-10 - Z79.4) [...] pain or mobility Continue home PT - [facility] Continue tylenol as needed 06/24/2024 Displaced trimalleolar fracture of right lower leg, subsequent encounter for closed fracture with routine healing (ICD-10 - S82.851D) Subacute/Improving Appropriate healing per Ortho - continue up routinely Wearing a walking boot, ambulating with assistance and use of walker Avoid falls, report changes in pain or mobility Continue home PT - [facility] Continue tylenol as needed 04/07/2024 Chronic [...] Other Reviewed contac t info 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 and to consider calling for urgent [...] Treatment Next Appt Details Provider Name:Rajwinder jenkins, 04/11/2025 12:00:00 PM, [address] [place], [address], Insurance Providers Payer Name Payer Address Payer Phone Subscriber Number Group Number Insured Name Patient Relationship to Insured Coverage Start Date Coverage End Date [facility] [employer] ([id number]) [id number] [phone] [id number] Mine Peacock Self - patient is the insured 3 9 Medical (General) History Medical History History ICD Code Chest pain (resolved 09/26/2023) Extrapyramidal disorder G25.9 Major depressive disorder, recurrent epi sode, moderate F33.1 Urinary incontinence, unspecified type R 32 Acute cystitis without hematuria N30.00 COPD exacerbation (resolved 07/14/2024) undefined COVID-19 virus infection (resolved 07/14) Surgical History Surgery Date(Month/Year) [facility] [place] Right ankle ORIF 04/2024 [facility], ?[facility]I 12/23 [facility] [place] ED - COPD exac 06/26/2024 [facility] for STR following ankle fracture 05/2024-06/22/2024 [facility] [place] Right bi-malleolar fracture 04/2024 [facility] for dysuria left AMA d/t long wait time 04/03/2024 [facility] bronchitis 02/13/24 [facility] chest and back pain (ACS ruled ou t) 12/04/23 [facility] ED chest and back pain (ACS ruled ou t) 12/02/23 [facility] - ? Sepsis (ruled out) 11/28- [facility]- COPD exac, UTI 11/17-04/05
--- OUTSIDE RECORDS SUMMARY | 2025-03-28 12:05 | XMS_ITS | Encounter Summary ---
Author Organization [facility] Address [address] [place] [address] Care Team Providers Care Respiratory Supervisor Name Role Phone Delaney Sherman MD Primary Care Provider [phone] Encounter Details Date Type Department Care Team (Latest Contact Info) Description 06/14/[address] [facility] - Main Lab [address] [place] [address] Delaney Sherman MD [address] [place] [address] remote computer terminal operator (current) use of insulin (CMS/HCC V24, CMS/HCC [...] HEMOGLOBIN A1C Routine 06/14/2024 4:50 AM EST senior living (current) use of insulin ([facility] [...] LAB BLOOD ORDERABLES Final Resu lt [facility] [address] [place] [address], documented in this encounter Visit Diagnoses Diagnosis senior living (current) use of insulin (CMS/HCC V24, CMS/[facility] V28) Type 2 diabetes mellitus without complications (CMS/HCC V24, CMS/HCC V28) documented in this encounter Care Teams Respiratory Supervisor Relationship Specialty Start Date End Date Delaney Sherman MD [address] [place] [address] PCP - General Hospitalist Medicine 06/14/24 documented as of this encounter
--- OUTSIDE RECORDS SUMMARY | 2025-03-28 12:05 | XMS_ITS | Clinical Summary ---
Author Organization [facility] Address [address] [place] [address] Phone Care Team Providers Care Check Out Cashier Name Role Phone Shelbi Perez MD Primary Care Provider [phone] Allergies Active Allergy Reactions Criticality Noted Date Comments Adhesive Tape 08/12/2021 Other reaction(s): skin irritation Fluticasone-Sodium Chloride Other (see comments) 08/12/2021 Trimethobenzamide 07/09/2021 Other reaction(s): GI s/s Medications acetaminophen (TYLENOL) 500 MG tablet Active Albuterol Sulfate 108 (90 Base) MCG/ACT aerosol powder 1 puff by Other route Active Aclidinium [place] ([place]UDOR[place] PRESSAIR IN) Inhale 4 Active insulin [...] MINI PEN NEEDLES 31G X 5 MM [facility] USE TO ADMINISTER INSULIN TWICE DAILY 2 [...] to complete this topic Insurance Medicaid [place] [employer] ([id number]) Medicaid [place] [facility] ([id number]) Care Teams Check Out Cashier Relationship Specialty Start Date End Date Shelbi Perez MD [facility] [place] [address] PCP - General Internal Medicine 09/18/21
--- OUTSIDE RECORDS SUMMARY | 2025-03-28 12:05 | XMS_ITS ---
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 Pt reports using assistive device of: 2023-03-30 Mental Status Status Date AOx 2023-03-30 Assessments Not Available Plan of Care Not Available
--- OUTSIDE RECORDS SUMMARY | 2025-03-28 12:05 | XMS_ITS | Clinical Summary ---
Author Organization [facility] Address [address] [place] [address] Phone Care Team Providers Care Welfare Eligibility Worker Name Role Phone Delaney Sherman MD Primary Care Provider [phone] Social History Tobacco Use Types Packs/Day Years Used Date Smoking Tobacco: Never Assessed Comments Unknown Sex and Gender Information Value Date Recorded Sex Assigned at Not on file Legal Sex Female 7:51 AM EST Gender Identity Not on file Sexual Orientation Not on file Plan of Treatment Health Maintenance Due Date Last Done Comments Diabetes: Annual GFR (Glomerular Filtration Rate) 1950 Diabetes: Annual Foot Exam 01/11/1960 Diabetes: Annual Retina Eye Exam 01/11/1960 DTaP,Tdap,and Td Vaccines (2 - Td or Tdap) 07/13/2004 07/13/1994 Zoster Vaccines (2 of 3) 03/16/2012 01/20/2012 Pneumococcal Vaccine: 50+ Years (2 of 2 - PPSV23) 10/07/2015 08/12/2015 Cholesterol Screening (Lipid Panel) 06/14/2024 Colorectal Cancer Screening: Colonoscopy 06/14/2024 Diabetes: Annual Urine Albumin-Creatinine Ratio (uACR) 06/14/2024 Falls Risk Assessment 06/14/2024 Hepatitis C Screening 06/14/2024 Hypertension/CHF/CAD Annual BMP Blood Test 06/14/2024 Medicare Annual Wellness Visit 06/14/2024 Osteoporosis Screening (Bone Density Screening) 06/14/2024 Social Influencers of Health Screening 06/14/2024 Depression Screening 07/13/2024 Diabetes: Blood Sugar Contro l Test (HGBA1C) 12/13/2024 06/14/2024 RSV Immunization Adult Patients (1 - 1-dose 75+ series) 2025 COVID-19 Vaccine (4 - 2024-2 6 season) 2025 05/10/2021, 09/28/2020, 09/11/2020 Influenza Vaccine (#1) 2025 , 09/10/2017 HIB Vaccines Aged Out No longer eligi [...] HEMOGLOBIN A1C Routine 06/14/2024 4:50 AM EST 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 140 mg/dL LAB CHEMISTRY METHOD 06/14/2024 12:36 PM EST [facility] Blood Venous blood specimen / Unknown Venipuncture / Unknown 06/14/2024 4:50 AM EST 06/14/2024 8:48 AM EST us Delaney Sherman MD LAB BLOOD ORDERABLES Final Resu lt [facility] [address] [place] [address], from Last 3 Months or Most Recently Relevant to Health Maintenance Insurance [employer] MEDICARE Member Subscriber Plan / Payer (Ef fective 2023-Present) Name:Mine Peacock Relation to Subscriber:Self Name:Mine Peacock Payer ID:[id number] Group ID:[id number] Type:Not on file Address: [place] [id number] [place] [address] Care Teams Welfare Eligibility Worker Relationship Specialty Start Date End Date Delaney Sherman MD [address] [place] [address] PCP - General Hospitalist Medicine 06/14/24
--- OUTSIDE RECORDS SUMMARY | 2025-03-28 12:05 | XMS_ITS | Patient Health Record ---
Author Organization [facility] Address [address] [place] [address] Care Team Providers Care Academic Services Professional Name Role Phone Chris BROWNE, [facility] Primary Care Provider Nik Horner Unavailable [phone] Allergies No Known Allergies Results Component Value Reference Range Notes HEMOGLOBIN A1C (GLYCOHEMOGLO BIN) Reviewed date:08/19/2024 08:18:40 AM Interpretation: Performing Lab: Notes/Report: HEMOGLOBIN A1C % (HH) 7.0 Reason For Referral No Information Medications Medication SIG (Take, Route, Frequency, Duration) Notes Start Date End Date Status Lidocaine 5 % External; Duration: 30 Active glipiZIDE ER 2.5 MG TAKE 1 TABLET BY MARLO TH EVERY DAY Oral; Duration: 30 Active Atorvastatin Calcium 80 MG Oral Once a day Active Extra Depth Orthopedic Shoes (1 Pair) with Customized Heat Molded Multidensity Innersoles (3 Pair) as directed Dx: NIDDM/Polyneuropathy (E11.42), Hammertoe Foot Deformity (M20.41,M20.42), Preulcerative Skin Lesion(s) (L85.1 03/01/2024 Active Destin Aspirin 81 1 tablet Once a day Active Levemir FlexTouch 100 UNIT/ML Subcutaneous; Duration: 37 Not-Taking buPROPion HCl ER (XL) 150 MG 1 tablet in the morning Oral Active metFORMIN HCl 500 MG Oral Once a day Not-Taking Myrbetriq 25 MG Oral; Duration: 30 Active Montelukast Sodium 10 MG Oral Once a day Active rOPINIRole HCl 1 MG 2 tablet Oral Once a day Active traZODone HCl 100 MG Oral Once a day Active D3-1000 Active Gabapentin 300 MG Oral Once a day Active Immunizations Vaccine Route Administration Date Status Comme nts Influenza Unknown 03/13/2021 Administered COVID-19 Pfizer BioNTech Vaccine Unknown 05/10/2021 Administered 1st 08/21/2020 2nd 09/11/2020 Social History Tobacco Use: Social History Observation [...] Problem Acquired hammer toe of right foot (7246407652539614 ) Other hammer toe(s) (acquired), right foot (M20.41) Active confirmed Response to treatment, Improvemen t Problem Acquired hammer toe of left foot (5067659921178860 ) Other hammer toe(s) (acquired), left foot (M20.42) Active confirmed Response to treatment, Improvemen t Problem Polyneuropathy due to type 2 diabetes mellitus (092476439) Type 2 diabetes mellitus with diabetic polyneuropathy (E11.42) Active confirmed Vital Signs Blood pressure diastolic 70 mm Hg 11/15/2024 Height 5 ft in 11/15/2024 Blood pressure systolic 136 mm Hg 11/15/2024 Weight 198 lbs 11/15/2024 BMI 38.67 kg/m2 11/15/2024 Procedures Procedure Date Ordered Date Performed Result Body Sit e 14225-MOXTATL NAIL, 6 OR MORE 08/19/2024 N/A 87308-DETZ SKIN LESIONS, OVER 4 08/19/2024 N/A 81430-XZPBMQI NAIL, 6 OR MORE 11/15/2024 N/A 11994-FGBR SKIN LESIONS, OVER 4 11/15/2024 N/A Encounters Encounter Location Date Provider Diagnosis [facility] [address] [place] [address] 08/19/2024 Nik Hernandez Type 2 diabetes mellitus with diabetic polyneuropathy E11.42 ; Tinea unguium B35.1 ; Other hammer toe(s) (acquired), right foot M20.41 and Other hammer toe(s) (acquired), left foot M20.[address] [address] 11/15/2024 Nik Hernandez Type 2 diabetes mellitus with diabetic polyneuropathy E11.42 and Tinea unguium B35.[address] [address] 04/29/2024 Nik Hernandez [address] [address] 11/14/2024 Nik Hernandez [address] [address] 11/15/2024 Nik Hernandez Assessments Encounter Date Diagnosis (ICD Code) Assessment Notes Treatment Notes Treatment Clinical Notes Section Notes 08/19/2024 Type 2 diabetes mellitus with diabetic polyneuropathy (ICD-10 - E11.42) 08/19/2024 Tinea unguium (ICD-10 - B35.1) 11/15/2024 Type 2 diabetes mellitus with diabetic polyneuropathy (ICD-10 - E11.42) 11/15/2024 Tinea unguium (ICD-10 - B35.1) 08/19/2024 Other hammer toe(s) (acquired), right foot (ICD-10 - M20.41) Response to treatment,Impro vement 08/19/2024 Other hammer toe(s) (acquired), left foot (ICD-10 - M20.42) Response to treatment,Impro vement Plan Of Treatment Pending Test Test Name Order Date 42479-PFSHDTS NAIL, 6 OR MORE 05/11/2020 21423-VVOVKVX NAIL, 6 OR MORE 09/21/2020 21989-DIRFJBX NAIL, 6 OR MORE 12/21/2020 27313-RBCQOIT NAIL, 6 OR MORE 05/17/2021 27072-CXIXVGQ NAIL, 6 OR MORE 08/23/2021 17453-YBOEFNA NAIL, 6 OR MORE 01/28/2022 36340-NPEQPHI NAIL, 6 OR MORE 03/01/2024 11550-YNNMRFH NAIL, 6 OR MORE 08/19/2024 19628-WWZOKOR NAIL, 6 OR MORE 11/15/2024 24101-NQUD SKIN LESIONS, OVER 4 11/16/19 25 45741-YRHB SKIN LESIONS, OVER 4 08/19/19 25 99989-TLFC SKIN LESIONS, OVER 4 03/01/20 24 Next Appt Details Provider Name:Nik Hernandez , 04/04/2025 10:00:00 AM, [address] [place], [address], Insurance Providers Payer Name Payer Address Payer Phone Subscriber Number Group Number Insured Name Patient Relationship to Insured Coverage Start Date Coverage End Date [facility] [employer] Claims [address] [place] [id number] Mine Peacock Self - patient is the insured Medical (General) History Medical History History ICD Code Lung disease COPD CAD Depression Restless Leg type II diabetes Surgical History Surgery Date(Month/Year) teeth extraction Surgery 2019 Left Knee Replacement Right ankle ORIF 2023 Hospitalization History Reason Date(Month/Year) [facility]- fell broke her Right ankle 03/2024 [facility] [place] about [place] week 01/2022 [facility] - pneumonia/ high sugars 15 days 2
== END 2025-03-28 10:01 | disposition home or self-care (01) ==
LOC: HO.HSM 09:31
PROVIDERS: PCP Internal Medicine; Referring Provider Internal Medicine; Visit Provider Nurse Practitioner
DX: R26.89 Other abnormalities of gait and mobility (principal)
CPT/HCPCS: 99214

== ENCOUNTER → 2025-03-28 09:30 | Outpatient (BNVA) | payer OTHER, SELFPAY | PROVIDERS: PCP Internal Medicine; Referring Provider Internal Medicine; Visit Provider Nurse Practitioner | DX: G25.81 Restless legs syndrome (principal); R26.89 Other abnormalities of gait and mobility | CPT/HCPCS: 99212 ==

== ENCOUNTER 2025-03-31 12:42 | Outpatient (REF) | payer OTHER, SELFPAY | END 2025-03-31 12:43 | disposition home or self-care (01) | LOC: HO.LAB 12:42 | PROVIDERS: PCP Internal Medicine | DX: R35.0 Frequency of micturition (principal); R39.15 Urgency of urination; N39.0 Urinary tract infection, site not specified; Z13.89 Encounter for screening for other disorder | CPT/HCPCS: 81003; 87086; 87088; 87186; 99212 ==

== ENCOUNTER 2025-03-31 12:42 | Outpatient (AMB) | payer OTHER, SELFPAY ==
[2025-03-31 12:43] VITALS: BP 114/58; PULSE 76; TEMP 36.6; O2SAT 93; BMI 41.6
--- NOTE | 2025-03-31 12:43 | AM.OFFWIN_ITS ---
Intake Vital Signs 03/31/25 12:43 Height 5 ft Weight 213 lb BMI 41.6 BP 114/58 L Blood Pressure Location Rt brachial Position Sitting Pulse 76 Pulse Source Pulse Oximeter Temp 97.8 F Temp Source Oral Pulse Oximetry (%) 93 Oxygen Delivery Method Room Air Intake Visit Reasons: ep uti Intake Note: pt presents with urine frequency with little output at times, bilateral flank pain, gait off Patient Tobacco Use Status: Never used Tobacco Allergies adhesive tape (ADHESIVE TAPE) Allergy (Intermediate, Verified 03/31/25 12:50) RASH environmental allergies Allergy (Mild, Verified 03/31/25 12:50) URI trimethobenzamide (From TIGAN) Allergy (Mild, Verified 03/31/25 12:50) NAUSEA NSAIDS (Non-Steroidal Anti-Inflamma Adverse Reaction (Mild, Verified 03/31/25 12:50) Nephropathy Do you need a note to return to daycare/school/sports/work: No HPI HPI Comments History of Present Illness Details History - The patient is a 75-year-old female pr esenting with symptoms suggestive of a urinary tract infection. - She reports increased urinary frequenc y and urgency without dysuria. - No fever was noted, but significant ba ck pain and lower abdominal pain were reported. - The patient has a history of urinary t ract infections, with a previous episode leading to sepsis. - She experienced a fall a few days ago, resulting in multiple bruises and soreness. - The fall occurred while she was at the sink, and she did not lose consciousness or hit her head. - The patient has been feeling unsteady on her feet recently, which she attributes to the urinary tract infection. Physical Exam General: Cooperative, healthy appearing, comfortable, no acute distress and well developed Orientation: Patient oriented x3 Limitations: No limitations Head: Normal to inspection Ears: Hearing grossly normal bilaterally Face and sinus: Normal facial exam Neck: Normal visual inspection and Yes full ROM Respiratory: Normal respiratory effort and able to speak in complete sentences. Skin: No rashes or lesions noted Neuro: Patient oriented x3 Back/spine: Positive for back pain, negative CVA bilaterally Review of Systems - Genitourinary: Reports increased urina ry frequency and urgency. Denies dysuria. - Musculoskeletal: Reports significant b ack pain and multiple bruises from a recent fall. - Neurological: Denies loss of conscious ness during fall. All systems reviewed and are unremarkable except as noted in HPI and above PFSH Medical History (Updated 03/31/25 @ 12:59 by Codi Arnold PA-C) Exercise hypoxemia Recurrent UTI COPD (chronic obstructive pulmonary disease) Uncontrolled diabetes mellitus Depression, major, recurrent Dysuria Kidney stone on left side Diabetes 1.5, managed as type 1 COPD (chronic obstructive pulmonary disease) Respiratory failure with hypoxia Urinary tract infection Hypoxemia Morbid obesity CKD (chronic kidney disease) Anemia COPD exacerbation Allergic rhinitis ALDO (obstructive sleep apnea) Obesity (BMI 30-39.9) Constipation due to opioid therapy Osteoarthritis of left knee Hx SBO Hyperlipidemia CPAP (continuous positive airway pressure) dependence History of adrenal adenoma Osteochondroma of left femur Arthritis Diabetes Elevated cholesterol History of restless legs syndrome History of diverticulitis GERD (gastroesophageal reflux disease) Surgical History H/O excision of mass History of oophorectomy History of cholecystectomy History of appendectomy History of arthroscopy of left knee History of partial colectomy Hx of cataract extraction H/O exploratory laparotomy H/O colonoscopy History of surgery History of hysterectomy Family History Father HTN (hypertension) Diabetes mellitus Mother HTN (hypertension) Liver cancer Social History 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: Other 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 Other:: ex- has been staying over Housing: House Are you a primary neonatal critical care nurse to a significant other at home: No Do you presently have visiting nurse or other home services: Yes Unable to assess alcohol history related to: Unknown Alcohol intake: never Comment: PT SLEEPING Patient Tobacco Use Status: Never used Tobacco e-Cigarette/Vaping Use: Never Used Second Hand Smoke Exposure: No Advance Directives Date on File: 10/22/23 service: No Current occupational status: retired Cognitive needs: No Hearing needs: No Vision needs: No Female Reproductive History Menstrual Age of Menarche: 13 Physical Exam Vital Signs: Last Vital Signs Temp 97.8 F 03/31/25 12:43 Pulse 76 03/31/25 12:43 BP 114/58 L 03/31/25 12:43 Pulse Ox 93 03/31/25 12:43 Oxygen Delivery Method Room Air 03/31/25 12:43 BMI result Body Mass Index 41.6 Assessment & Plan Assessment & Plan (1) Symptoms of urinary tract infection: Code(s): R39.9 - Unspecified symptoms and signs involving the genitourinary system Plan: Plan - Initiate antibiotic therapy with cefuroxime, to be taken every 12 hours for five days. - UA with 2+ leuks, neg nitrites, will send culture - Encourage increased fluid intake to aid in recovery from urinary tract infection.. - Recommend follow-up if symptoms worsen or do not improve, to reassess and adjust treatment as necessary. Patient was informed and verbally consented to the use of an ambient scribe for clinic note documentation during this visit. Orders: Orders AMB Urinalysis Automated Today Z13.9 - Encounter for screening, unspecified Urine Culture Today N39.0 - Urinary tract infection, site not specified Medications: New cefuroxime axetil 500 mg PO Q12H 10 tabs 0RF Coding Level of Care Code Est Pt Level 3 (06233) Diagnoses Symptoms of urinary tract infection R39.9
--- OUTSIDE RECORDS SUMMARY | 2025-03-31 12:44 | XMS_ITS | Encounter Summary ---
Author Organization [facility] Address [address] [place] [address] Care Team Providers Care Home Performance Laborer Name Role Phone Delaney Sherman MD Primary Care Provider [phone] Encounter Details Date Type Department Care Team (Latest Contact Info) Description 06/14/2024 Lab Requisition [facility] - Main Lab [address] [place] [address] Delaney Sherman MD [address] [place] [address] rn long term care (current) use of insulin (CMS/HCC V24, CMS/HCC [...] HEMOGLOBIN A1C Routine 06/14/2024 4:50 AM EST snf (current) use of insulin (CMS/[facility]) Type 2 diabetes mellitus without complications (CMS/[facility]) documented in this encounter Results * (ABNORMAL) Hemoglobin A1c (06/14/2024 4:50 AM EST) Hemoglobin A1C 6.5(H) <6.5 % LAB CHEMISTRY METHOD 06/14/2024 12:36 PM EST [facility] Mean Bld Glu Estim. 140 mg/dL LAB CHEMISTRY METHOD 06/14/2024 12:36 PM EST [facility] Blood Venous blood specimen / Unknown Venipuncture / Unknown 06/14/2024 4:50 AM EST 06/14/2024 8:48 AM EST Delaney Sherman MD LAB BLOOD ORDERABLES Final Resu lt [facility] [address] [place] [address], documented in this encounter Visit Diagnoses Diagnosis snf (current) use of insulin (CMS/HCC V24, CMS/[facility] V28) Type 2 diabetes mellitus without complications (CMS/HCC V24, CMS/HCC V28) documented in this encounter Care Teams Home Performance Laborer Relationship Specialty Start Date End Date Delaney Sherman MD [address] [place] [address] PCP - General Hospitalist Medicine 06/14/24 documented as of this encounter
--- OUTSIDE RECORDS SUMMARY | 2025-03-31 12:44 | XMS_ITS | Clinical Summary ---
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 140 mg/dL LAB CHEMISTRY METHOD 06/14/2024 12:36 PM EST [facility] Blood Venous blood specimen / Unknown Venipuncture / Unknown 06/14/2024 4:50 AM EST 06/14/2024 8:48 AM EST us Delaney Sherman MD LAB BLOOD ORDERABLES Final Resu lt [facility] [address] [place] [address], from Last 3 Months or Most Recently Relevant to Health Maintenance Insurance [employer] MEDICARE Member Subscriber Plan / Payer (Ef fective 2023-Present) Name:Mine Peacock Relation to Subscriber:Self Name:Mine Peacock Payer ID:[id number] Group ID:[id number] Type:Not on file Address: [place] [id number] [place] [address] Care Teams Ambulatory Care Coordinator Relationship Specialty Start Date End Date Delaney Sherman MD [address] [place] [address] PCP - General Hospitalist Medicine 06/14/24
--- OUTSIDE RECORDS SUMMARY | 2025-03-31 12:44 | XMS_ITS | Clinical Summary ---
Author Organization [facility] Address [address] [place] [address] Phone Care Team Providers Care Direct Support Professional Name Role Phone Shelbi Perez MD Primary Care Provider [phone] Allergies Active Allergy Reactions Criticality Noted Date Comments Adhesive Tape 08/12/2021 Other reaction(s): skin irritation Fluticasone-Sodium Chloride Other (see comments) 08/12/2021 Trimethobenzamide 07/09/2021 Other reaction(s): GI s/s Medications acetaminophen (TYLENOL) 500 MG tablet Active Albuterol Sulfate 108 (90 Base) MCG/ACT aerosol powder 1 puff by Other route Active Aclidinium [place] (TUDORZA PRESSAIR IN) Inhale 4 Active insulin [...] MINI PEN NEEDLES 31G X 5 MM [facility] [place] [place] USE TO ADMINISTER INSULIN TWICE DAILY 2 [...] to complete this topic Insurance [place] [employer] ([id number]) [place] [facility] ([id number]) Care Teams Direct Support Professional Relationship Specialty Start Date End Date Shelbi Perez MD [facility] [place] [address] PCP - General Internal Medicine 09/18/21
== END 2025-03-31 13:10 | disposition home or self-care (01) ==
PROVIDERS: PCP Internal Medicine; Visit Provider Physician Assistant
DX: R39.9 Unspecified symptoms and signs involving the genitourinary system (principal); Z13.9 Encounter for screening, unspecified

== ENCOUNTER 2025-04-18 09:01 | Outpatient (AMB) | payer OTHER, SELFPAY ==
--- OUTSIDE RECORDS SUMMARY | 2024-05-06 05:00 | XMS_ITS ---
Author Organization [facility] Address [address] [place] [address] Care Team Providers Care Fiberglasser Name Role Phone Chris BROWNE, Shelbi Primary Care Provider UnavailNik Haynes Unavailable [phone] Encounters Encounter Location Date Provider Diagnosis [address] [address] 05/06/2024 Nik Hernandez Plan Of Treatment Next Appt Details Provider Name:Nik Hernandez , 08/01/2025 09:00:00 AM, [address] [place] [address], [phone], Progress Notes * AYUSHMaryeDOB:1950 ( 75 yo F)Acc No.[id number]:05/06/2024 Progress Note Patient: Mine MIMS Provider: Nicolás Hernandez DPM :1950 A ge:74 Y S ex:Female Date:05/06/2024 Address:[address] [place] [address] Pcp:Shelbi Perez MD Subjective: * Chief Complaints: [...] Date: 1 Generated for Judah locke/Wendy/Kyle on: 09:52 AM EDT
--- OUTSIDE RECORDS SUMMARY | 2025-02-21 05:30 | XMS_ITS ---
Author Organization [facility] Address [address] [place] [id number] Care Team Providers Care Advanced Seal Delivery System Name Role Phone Chris BROWNE, Shelbi Primary Care Provider Unavailabl Nik Shankar Unavailable [phone] Lopez Encounters Encounter Location Date Provider Diagnosis [address] [address] 02/21/2025 Nik Hernandez Plan Of Treatment Next Appt Details Provider Name:Nik Hernandez , 08/01/2025 09:00:00 AM, [address] [place] [address], [phone], Progress Notes * MENDY MatthewleeeDOB:1950 ( 75 yo F)Acc No.[id number]:02/21/2025 Progress Note Patient: Matthew MIMSlene Provider: Nicolás Hernandez DPM :1950 A ge:75 Y S ex:Female Date:02/21/2025 Address:[address] [place] [address] Pcp:Shelbi Perez MD Subjective: * Chief Complaints: [...] 0 02/21/2025 Generated for Judah Owens on: 1 09:52 AM EDT
--- OUTSIDE RECORDS SUMMARY | 2025-04-11 08:00 | XMS_ITS ---
Author Organization [facility] Address [address] [place] [address] Care Team Providers Care Clinical Data Assistant Name Role Phone Shelbi Perez Primary Care Provider Unavailabl e Amelialiam Opal Unavailable [phone] Rajwinder Johns Unavailable [phone] REASON FOR VISIT Chronic Care F/U Encounters Encounter Location Date Provider Diagnosis [facility] [address] [place] [address] 04/11/2025 Rajwinder Johns Plan Of Treatment No Information Progress Notes * Mine PEACOCK RDOB:1950 (75 yo F)Acc No.[id number]:04/11/2025 BLOCKED FROM THE PATIENT Patient: Mine MIMS External Provider: [place] Diana :1950 A ge:75 Y S ex:Female Date:04/11/2025 Address:[address] [place] [address] [address], [place], [id number] Pcp:Shelbi Perez Subjective: * Chief Complaints: * [...] [place] Diana Date: 0 04/11/2025 Generated for Judah locke/Wendy/Kyle on: 1 09:53 AM EDT
--- OUTSIDE RECORDS SUMMARY | 2025-04-17 05:00 | XMS_ITS ---
Author Organization [facility] Address [address] [place] [address] Care Team Providers Care Vp Customer Service Name Role Phone Shelbi Perez Primary Care Provider Unavailabl e Opal Gustafson Unavailable [phone] Clinical, Operations Unavailable Unavailable Allergies Allergen (clinical drug ingredient) Drug/Non Drug Allergy documented on EMR Reaction Allergy Type Onset Date Status Cloth tape (uncoded) skin redness/pain Allergy Active Zofran vomiting Drug Allergy Active REASON FOR VISIT MDS Assessment Medications Medication SIG (Take, Route, Frequency, Duration) Notes Start Date End Date Status amLODIPine Besylate 5 MG 1 tablet Orally Once a day Member reports not taking. Not-Taking Multivitamin - 1 tablet Orally Once a day Active rOPINIRole HCl 2 MG 1 tablet Orally Twice a day Active Budesonide 2 MG/10ML 10 mL Orally Twice a day Member reports not taking. Not-Taking Ipratropium-Albuterol 0.5-2.5 (3) MG/3ML 3 mL as needed Inhalation every 6 hrs Member reports not taking. Not-Taking Atorvastatin Calcium 80 MG 1 tablet Orally Once a day Active hydrOXYzine HCl 25 MG as directed Orally twice a day PRN anxiety Active Tylenol Extra Strength 500 MG 1 tablet as needed Orally every 6 hrs OTC Active buPROPion HCl ER (SR) 150 MG 1 tablet in the morning Orally Once a day Active Gabapentin 300 MG as directed Orally once a day at HS Active Lantus SoloStar 100 UNIT/ML 20 units Subcutaneous daily; Duration: 30 days Active Oxygen Concentrator 2-3 liters 2lPM as needed to maintain 2 sat 88-92% continuous 2L PRN Active [facility] Fluticasone Propionate 50 MCG/ACT 1 spray in each nostril Nasally Twice a day; Duration: 30 days Active traZODone HCl 150 MG 1 tablet at bedtime Orally Once a day Active Dulaglutide 3 MG/0.5ML as directed Subcutaneous weekly Active Insulin Aspart FlexPen 100 UNIT/ML as directed Subcutaneous Sliding scale TID Active Citalopram Hydrobromide 10 MG 1 tablet Orally Once a day Active Vitamin D3 125 MCG (5000 UT) 1 capsule Orally Once a day; Duration: 90 days Active Aspirin 81 MG 1 tablet Orally Once a day; Duration: 90 days Active Lisinopril 20 MG 1 tablet Orally Once a day Active Cyclobenzaprine HCl 10 MG 1 tablet at bedtime as needed Orally Once a day Member reports not taking. Not-Taking Loratadine 10 MG 1 tablet Orally Once a day; Duration: 30 days Member reports not taking. Not-Taking Montelukast Sodium 10 MG 1 tablet Orally Once a day Active Albuterol Sulfate HFA 108 (90 Base) MCG/ACT 1 puff as needed Inhalation every 4 hrs PRN Active Albuterol Sulfate (2.5 MG/3ML) 0.083% 3 mL as needed Inhalation every 6 hrs PRN only Active Problems Problem Type SNOMED Code ICD Code Onset Dates Problem Status W/U Status Risk Notes Problem Polyneuropathy due to type 2 diabetes mellitus (154913133) Type 2 diabetes mellitus with diabetic polyneuropathy (E11.42) Active confirmed Problem Acquired hammer toe of right foot (4194498991632958 ) Other hammer toe(s) (acquired), right foot (M20.41) Active confirmed Problem Tinea unguium (309865516) Tinea unguium (B35.1) Active confirmed Problem Acquired hammer toe of left foot (0675554631034626 ) Other hammer toe(s) (acquired), left foot (M20.42) Active confirmed Problem Unspecified symptoms and signs involving the genitourinary system (R39.9) Active confirmed Problem Abnormal gait (72926087) Other abnormalities of gait and mobility (R26.89) Active confirmed Problem Tachycardia (9395442) Tachycardia, unspecified (R00.0) Active confirmed Vital Signs Weight 214 lbs 04/17/2025 Weight-kg 97.07 kg 04/17/2025 Height 60 in 04/17/2025 Height-cm 152.4 cm 04/17/2025 BMI 41.79 kg/m2 04/17/2025 Encounters Encounter Location Date Provider Diagnosis [facility] [place] [address] 04/17/2025 Operations Clinical Type 2 diabetes mellitus with [...] M35.3 ; Arthritis, low back M47.819 ; Recurrent UTI (urinary tract infection) N39.0 ; Mixed incontinence N39.46 ; Displaced trimalleolar fracture of right lower leg, subsequent encounter for closed fracture with routine healing S82.851D ; 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 Z79.4 ; Long-term current use of injectable noninsulin antidiabetic medication Z79.85 ; 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 ; Morbid (severe) obesity due to excess calories E66.01 ; Body mass index [BMI] 40.0-44.9, adult Z68.41 ; Skin abrasion T14.8XXA ; History of falling Z91.81 ; Vitamin D deficiency, unspecified E55.9 ; Chronic kidney disease, stage 4 (severe) N18.4 ; Diarrhea, unspecified R19.7 ; Type 2 diabetes mellitus with diabetic polyneuropathy E11.42 ; Other hammer toe(s) (acquired), right foot M20.41 ; Tinea unguium B35.1 ; Other hammer toe(s) (acquired), left foot M20.42 ; Unspecified symptoms and signs involving the genitourinary system R39.9 ; Other abnormalities of gait and mobility R26.89 and Tachycardia, unspecified R00.0 Assessments Encounter Date Diagnosis (ICD Code) Assessment Notes Treatment Notes Treatment Clinical Notes Section Notes 04/17/2025 Type 2 diabetes mellitus with diabetic neuropathy, unspecified (ICD-10 - E11.40) 04/17/2025 Uncontrolled type 2 diabetes mellitus with hyperglycemia (ICD-10 - E11.65) 04/17/2025 Dementia, unspecified, without behavioral disturbance (ICD-10 - F03.90) 04/17/2025 Major depressive disorder, recurrent episode, moderate (ICD-10 - F33.1) 04/17/2025 RACHNA (generalized anxiety disorder) (ICD-10 - F41.1) 04/17/2025 Restless legs syndrome (RLS) (ICD-10 - G25.81) 04/17/2025 Extrapyramidal disorder (ICD-10 - G25.9) 04/17/2025 ALDO on CPAP (ICD-10 - G47.33) 04/17/2025 Other chronic pain (ICD-10 - G89.29) 04/17/2025 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) 04/17/2025 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 kidney disease, or unspecified chronic kidney disease (ICD-10 - I13.0) 04/17/2025 Chronic diastolic (congestive) heart failure (ICD-10 - I50.32) 04/17/2025 Panlobular emphysema (ICD-10 - J43.1) 04/17/2025 COPD (chronic obstructive pulmonary disease) (ICD-10 - J44.9) 04/17/2025 Chronic respiratory failure with hypoxia (ICD-10 - J96.11) 04/17/2025 Unilateral primary osteoarthritis, left knee (ICD-10 - M17.12) 04/17/2025 Polymyalgia rheumatica (ICD-10 - M35.3) 04/17/2025 Arthritis, low back (ICD-10 - M47.819) 04/17/2025 Recurrent UTI (urinary tract infection) (ICD-10 - N39.0) 04/17/2025 Mixed incontinence (ICD-10 - N39.46) 04/17/2025 Displaced trimalleolar fracture of right lower leg, subsequent encounter for closed fracture with routine healing (ICD-10 - S82.851D) 04/17/2025 MCFP (current) use of insulin (ICD-10 - Z79.4) 04/17/2025 Long-term current use of injectable noninsulin antidiabetic medication (ICD-10 - Z79.85) 04/17/2025 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) 04/17/2025 Morbid (severe) obesity due to excess calories (ICD-10 - E66.01) 04/17/2025 Body mass index [BMI] 40.0-44.9, adult (ICD-10 - Z68.41) 04/17/2025 Skin abrasion (ICD-10 - T14.8XXA) 04/17/2025 History of falling (ICD-10 - Z91.81) 04/17/2025 Vitamin D deficiency, unspecified (ICD-10 - E55.9) 04/17/2025 Chronic kidney disease, stage 4 (severe) (ICD-10 - N18.4) 04/17/2025 Diarrhea, unspecified (ICD-10 - R19.7) 04/17/2025 Type 2 diabetes mellitus with diabetic polyneuropathy (ICD-10 - E11.42) 04/17/2025 Other hammer toe(s) (acquired), right foot (ICD-10 - M20.41) 04/17/2025 Tinea unguium (ICD-10 - B35.1) 04/17/2025 Other hammer toe(s) (acquired), left foot (ICD-10 - M20.42) 04/17/2025 Unspecified symptoms and signs involving the genitourinary system (ICD-10 - R39.9) 04/17/2025 Other abnormalities of gait and mobility (ICD-10 - R26.89) 04/17/2025 Tachycardia, unspecified (ICD-10 - R00.0) Plan Of Treatment No Information Progress Notes * Mine PEACOCK RDOB:1950 (75 yo F)Acc No.[id number]:04/17/2025 Patient: Mine MIMS External Provider: Dandy benton Clinical :1950 A ge:75 Y S ex:Female Date:04/17/2025 Address:[address] [place] [address] [address], [place], [id number] Pcp:Shelbi Perez Subjective: * Chief Complaints: * M DS Assessment * HPI: C OVID-19 Screening (Questions Revised 11/14/2019): COVID-19 Screening M ember or any household member has any new or worsening breathing problems: N o M ember or any household member has other general or non-respiratory symptoms: N o M ember or any household member has been in close contact with anyone diagnosed or suspected case of COVID: N o * Medical History: * Surgical History: * Hospitalization/Major Diagno stic Procedure: * Medications: T akingAlbuterol Sulfate (2.5 MG/3ML) 0.083% Nebulization Solution 3 mL as needed Inhalation every 6 hrs , Notes to Pharmacist: PRN onlyAlbuterol Sulfate HFA 108 (90 Base) MCG/ACT Aerosol Solution 1 puff as needed Inhalation every 4 hrs , Notes to Pharmacist: PRNMontelukast Sodium 10 MG Tablet 1 tablet Orally Once a day Lisinopril 20 MG Tablet 1 tablet Orally Once a day Aspirin 81 MG Tablet Delayed Release 1 tablet Orally Once a day Vitamin D3 125 MCG (5000 UT) Capsule 1 capsule Orally Once a day Citalopram Hydrobromide 10 MG Tablet 1 tablet Orally Once a day Insulin Aspart FlexPen 100 UNIT/ML Solution Pen-injector as directed Subcutaneous , Notes to Pharmacist: Sliding scale TIDOxygen Concentrator 2-3 liters inhaled oxygen 2lPM as needed to maintain 2 sat 88-92% continuous , Notes to Pharmacist: 2L PRNLantus SoloStar 100 UNIT/ML Solution Pen-injector 20 units Subcutaneous daily Dulaglutide 3 MG/0.5ML Solution Pen-injector as directed Subcutaneous weekly traZODone HCl 150 MG Tablet 1 tablet at bedtime Orally Once a day [facility]S Fluticasone Propionate 50 MCG/ACT Suspension 1 spray in each nostril Nasally Twice a day Gabapentin 300 MG Capsule as directed Orally once a day at HS buPROPion HCl ER (SR) 150 MG Tablet Extended Release 12 Hour 1 tablet in the morning Orally Once a day Tylenol Extra Strength 500 MG Tablet 1 tablet as needed Orally every 6 hrs , Notes to Pharmacist: OTChydrOXYzine HCl 25 MG Tablet as directed Orally twice a day , Notes to Pharmacist: PRN anxietyAtorvastatin Calcium 80 MG Tablet 1 tablet Orally Once a day rOPINIRole HCl 2 MG Tablet 1 tablet Orally Twice a day Multivitamin - Tablet 1 tablet Orally Once a day Taking Albuterol Sulfate (2.5 MG/3ML) 0.083% Nebulization Solution 3 mL as needed Inhalation every 6 hrs , Notes to Pharmacist: PRN onlyTaking Albuterol Sulfate HFA 108 (90 Base) MCG/ACT Aerosol Solution 1 puff as needed Inhalation every 4 hrs , Notes to Pharmacist: PRNTaking Montelukast Sodium 10 MG Tablet 1 tablet Orally Once a day Taking Lisinopril 20 MG Tablet 1 tablet Orally Once a day Taking Aspirin 81 MG Tablet Delayed Release 1 tablet Orally Once a day Taking Vitamin D3 125 MCG (5000 UT) Capsule 1 capsule Orally Once a day Taking Citalopram Hydrobromide 10 MG Tablet 1 tablet Orally Once a day Taking Insulin Aspart FlexPen 100 UNIT/ML Solution Pen-injector as directed Subcutaneous , Notes to Pharmacist: Sliding scale TIDTaking Oxygen Concentrator 2-3 liters inhaled oxygen 2lPM as needed to maintain 2 sat 88-92% continuous , Notes to Pharmacist: 2L PRNTaking Lantus SoloStar 100 UNIT/ML Solution Pen-injector 20 units Subcutaneous daily Taking Dulaglutide 3 MG/0.5ML Solution Pen-injector as directed Subcutaneous weekly Taking traZODone HCl 150 MG Tablet 1 tablet at bedtime Orally Once a day Taking CVS Fluticasone Propionate 50 MCG/ACT Suspension 1 spray in each nostril Nasally Twice a day Taking Gabapentin 300 MG Capsule as directed Orally once a day at HS Taking buPROPion HCl ER (SR) 150 MG Tablet Extended Release 12 Hour 1 tablet in the morning Orally Once a day Taking Tylenol Extra Strength 500 MG Tablet 1 tablet as needed Orally every 6 hrs , Notes to Pharmacist: OTCTaking hydrOXYzine HCl 25 MG Tablet as directed Orally twice a day , Notes to Pharmacist: PRN anxietyTaking Atorvastatin Calcium 80 MG Tablet 1 tablet Orally Once a day Taking rOPINIRole HCl 2 MG Tablet 1 tablet Orally Twice a day Taking Multivitamin - Tablet 1 tablet Orally Once a day Not-TakingamLODIPine Besylate 5 MG Tablet 1 tablet Orally Once a day , Notes to Pharmacist: Member reports not taking.Ipratropium-Albuterol 0.5-2.5 (3) MG/3ML Solution 3 mL as needed Inhalation every 6 hrs , Notes to Pharmacist: Member reports not taking.Budesonide 2 MG/10ML Suspension 10 mL Orally Twice a day , Notes to Pharmacist: Member reports not taking.Loratadine 10 MG Tablet 1 tablet Orally Once a day , Notes to Pharmacist: Member reports not taking.Cyclobenzaprine HCl 10 MG Tablet 1 tablet at bedtime as needed Orally Once a day , Notes to Pharmacist: Member reports not taking.Medication List reviewed and reconciled with the patientNot-Taking amLODIPine Besylate 5 MG Tablet 1 tablet Orally Once a day , Notes to Pharmacist: Member reports not taking.Not-Taking Ipratropium-Albuterol 0.5-2.5 (3) MG/3ML Solution 3 mL as needed Inhalation every 6 hrs , Notes to Pharmacist: Member reports not taking.Not- Taking Budesonide 2 MG/10ML Suspension 10 mL Orally Twice a day , Notes to Pharmacist: Member reports not taking.Not-Taking Loratadine 10 MG Tablet 1 tablet Orally Once a day , Notes to Pharmacist: Member reports not taking.Not-Taking Cyclobenzaprine HCl 10 MG Tablet 1 tablet at bedtime as needed Orally Once a day , Notes to Pharmacist: Member reports not taking.Medication List reviewed and reconciled with the patient * Allergies: Z ofran: vomiting - Allergy - Criticality UnknownCloth tape: skin redness/pain - Allergy - Criticality Unknownno[Allergies Verified] Objective: * Vitals: P ain scale:50-10, Wt:214lbs, Wt-k.07 kg, Ht: 60 in, Ht-cm: 152.4 cm, BMI:41.79Index. Assessment: * Assessment: 1. T ype 2 diabetes mellitus with diabetic neuropathy, unspecified - E11.40 (Primary) ? 2 . U ncontrolled type 2 diabetes mellitus with hyperglycemia - E11.65 3 . D ementia, unspecified, without behavioral disturbance - F03.90 4 . M ajor depressive disorder, recurrent episode, moderate - F33.1 5 . G AD (generalized anxiety disorder) - F41.1 6 . R estless legs syndrome (RLS) - G25.81 ?7. E xtrapyramidal disorder - G25.9 8 . O SA on CPAP - G47.33 & #160; 9 . O ther chronic pain - G89.29 1 0. 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 H ypertensive heart and chronic kidney disease with heart failure and stage 1 through stage 4 chronic kidney disease, or unspecified chronic kidney disease - I13.0 1 2. C hronic diastolic (congestive) heart failure - I50.32 1 3. P anlobular emphysema - J43.1 1 4. C OPD (chronic obstructive pulmonary disease) - J44.9 1 5. C hronic respiratory failure with hypoxia - J96.11 1 6. U nilateral primary osteoarthritis, left knee - M17.12 ? 1 7. P olymyalgia rheumatica - M35.3 1 8. A rthritis, low back - M47.819 1 9. R ecurrent UTI (urinary tract infection) - N39.0 2 0. M ixed incontinence - N39.46 2 1. D isplaced trimalleolar fracture of right lower leg, subsequent encounter for closed fracture with routine healing - S82.851D ?22. L altagracia term (current) use of insulin - Z79.4 2 3. L altagracia-term current use of injectable noninsulin antidiabetic medication - Z79.85 2 4. O xygen dependent - Z99.81 2 5. M orbid (severe) obesity due to excess calories - E66.01 ? 2 6. B brendan mass index [BMI] 40.0-44.9, adult - Z68.41 2 7. S kin abrasion - T14.8XXA 2 8. H istory of falling - Z91.81 2 9. V itamin D deficiency, unspecified - E55.9 3 0. C hronic kidney disease, stage 4 (severe) - N18.4 3 1. D iarrhea, unspecified - R19.7 3 2. T ype 2 diabetes mellitus with diabetic polyneuropathy - E11.42 3 3. O ther hammer toe(s) (acquired), right foot - M20.41 3 4. T inea unguium - B35.1 ?35. O ther hammer toe(s) (acquired), left foot - M20.42 3 6. U nspecified symptoms and signs involving the genitourinary system - R39.9 3 7. O ther abnormalities of gait and mobility - R26.89 3 8. T achycardia, unspecified - R00.0? Plan: * Treatment: * Procedure Codes: Care Plan: * Problems: * * Sign off status: Completed true * Provider: Dandy benton Clinical Date: Generated for Judah locke/Wendy/Christianitting on: 09:51 AM EDT History and Physical Notes * HPI (History of Present Illness) Category Sub-Category Detail Notes Category Not es COVID-19 Screening (Questions Revised 11/14/2019) COVID-19 Screening Member or any household member has any new or worsening breathing problems:: No Member or any household memb er has other general or non-respiratory symptoms:: No Member or any household memb er has been in close contact with anyone diagnosed or suspected case of COVID:: No
[2025-04-18 09:03] VITALS: BP 106/60; PULSE 95; TEMP 36.7; O2SAT 94; BMI 42.0
--- NOTE | 2025-04-18 09:03 | AM.OFFWIN_ITS ---
Intake Vital Signs 04/18/25 09:03 Height 5 ft Weight 215 lb BMI 42.0 BP 106/60 Blood Pressure Location Lt brachial Position Sitting Pulse 95 Pulse Source Pulse Oximeter Temp 98.1 F Temp Source Oral Pulse Oximetry (%) 94 Oxygen Delivery Method Room Air Intake Visit Reasons: EP-uti Intake Note: pt presents with urine frequency changes, low back pain Patient Tobacco Use Status: Never used Tobacco Allergies adhesive tape (ADHESIVE TAPE) Allergy (Intermediate, Verified 04/18/25 09:07) RASH environmental allergies Allergy (Mild, Verified 04/18/25 09:07) URI trimethobenzamide (From TIGAN) Allergy (Mild, Verified 04/18/25 09:07) NAUSEA NSAIDS (Non-Steroidal Anti-Inflamma Adverse Reaction (Mild, Verified 04/18/25 09:07) Nephropathy Do you need a note to return to daycare/school/sports/work: No HPI HPI Comments History of Present Illness Details History - The patient is a 75-year-old female pr esenting with urinary symptoms and concerns about a possible urinary tract infection. - Reports variable urinary output, with episodes of both increased and decreased urination, and occasional pain with urination. - Urine described as dark yellow, with o ccasional burning sensation during urination. - Previous urine culture revealed Klebsi shayan infection, treated with cefuroxime for 5 days on 03/31. Completed antibiotic course but reports only partial improvement. - Experienced a fall approximately two w eeks ago, attributed to feeling off balance, thinks due to the UTI, without head injury or loss of consciousness. - History of sepsis, with patient aware and concerned about recurrence. Physical Exam General: Cooperative, healthy appearing, comfortable, no acute distress and well developed Orientation: Patient oriented x3 Limitations: No limitations Head: Normal to inspection Ears: Hearing grossly normal bilaterally Face and sinus: Normal facial exam Neck: Normal visual inspection and Yes full ROM Respiratory: Normal respiratory effort and able to speak in complete sentences. Skin: No rashes or lesions noted Neuro: Patient oriented x3 Review of Systems - Genitourinary: Reports variable urinar y output, dark yellow urine, and occasional dysuria. - Neurological: Denies loss of conscious ness or head injury after fall. All systems reviewed and are unremarkable except as noted in HPI [facility] Medical History (Updated 04/18/25 @ 09:23 by Codi Arnold PA-C) Exercise hypoxemia Recurrent UTI COPD (chronic obstructive pulmonary disease) Uncontrolled diabetes mellitus Depression, major, recurrent Dysuria Kidney stone on left side Diabetes 1.5, managed as type 1 COPD (chronic obstructive pulmonary disease) Respiratory failure with hypoxia Urinary tract infection Hypoxemia Morbid obesity CKD (chronic kidney disease) Anemia COPD exacerbation Allergic rhinitis ALDO (obstructive sleep apnea) Obesity (BMI 30-39.9) Constipation due to opioid therapy Osteoarthritis of left knee Hx SBO Hyperlipidemia CPAP (continuous positive airway pressure) dependence History of adrenal adenoma Osteochondroma of left femur Arthritis Diabetes Elevated cholesterol History of restless legs syndrome History of diverticulitis GERD (gastroesophageal reflux disease) Surgical History H/O excision of mass History of oophorectomy History of cholecystectomy History of appendectomy History of arthroscopy of left knee History of partial colectomy Hx of cataract extraction H/O exploratory laparotomy H/O colonoscopy History of surgery History of hysterectomy Family History Father HTN (hypertension) Diabetes mellitus Mother HTN (hypertension) Liver cancer Social History 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: Other 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 Other:: ex- has been staying over Housing: House Are you a primary care specialist to a significant other at home: No Do you presently have visiting nurse or other home services: Yes Alcohol intake: never Comment: PT SLEEPING Patient Tobacco Use Status: Never used Tobacco e-Cigarette/Vaping Use: Never Used Second Hand Smoke Exposure: No Advance Directives Date on File: 10/22/23 service: No Current occupational status: retired Cognitive needs: No Hearing needs: No Vision needs: No Female Reproductive History Menstrual Age of Menarche: 13 Physical Exam Vital Signs: Last Vital Signs Temp 98.1 F 04/18/25 09:03 Pulse 95 04/18/25 09:03 BP 106/60 04/18/25 09:03 Pulse Ox 94 04/18/25 09:03 Oxygen Delivery Method Room Air 04/18/25 09:03 BMI result Body Mass Index 42.0 Assessment & Plan Assessment & Plan (1) Complicated UTI (urinary tract infection): Code(s): N39.0 - Urinary tract infection, site not specified Plan: Plan - UA with 2+ leuks, pos nitrites, negative blood and protein. - Urine culture to confirm current pathogen. - Prescribe a seven-day course of cefpodoxime for complete infection eradication. - Emphasize the importance of completing the antibiotic course to prevent recurrence and complications like sepsis. Patient was informed and verbally consented to the use of an ambient scribe for clinic note documentation during this visit. Orders: Orders Urine Culture Today N39.0 - Urinary tract infection, site not specified Medications: New cefpodoxime must administer with a meal/food 200 mg PO Q12H 14 tabs 0RF Coding Level of Care Code Est Pt Level 3 (04625) Diagnoses Complicated UTI (urinary tract infection) N39.0
--- OUTSIDE RECORDS SUMMARY | 2025-04-18 09:52 | XMS_ITS | Encounter Summary ---
Author Organization [facility] Address [address] [place] [address] Care Team Providers Care Customs Inspector Name Role Phone Delaney Sherman MD Primary Care Provider Encounter Details Date Type Department Care Team (Latest Contact Info) Description 06/14/2024 Lab Requisition [facility] Lab [address] [place] [address] Delaney Sherman MD [address] [place] [phone] joint terminal attack controller (current) use of insulin (CMS/HCC V24, CMS/HCC [...] HEMOGLOBIN A1C Routine 06/14/2024 4:50 AM EST joint terminal attack controller (current) use of insulin (CMS/[facility]) Type 2 diabetes mellitus without complications (CMS/[facility]) documented in this encounter Results * (ABNORMAL) Hemoglobin A1c (06/14/2024 4:50 AM EST) Hemoglobin A1C 6.5(H) <6.5 % LAB CHEMISTRY METHOD 06/14/2024 12:36 PM EST [facility] Mean Bld Glu Estim. 140 mg/dL LAB CHEMISTRY METHOD 06/14/2024 12:36 PM EST [facility] Blood Venous blood specimen / Unknown Venipuncture / Unknown 06/14/2024 4:50 AM EST 06/14/2024 8:48 AM EST Delaney Sherman MD LAB BLOOD ORDERABLES Final Resu lt [facility] ([facility] [address] [place] [address], documented in this encounter Visit Diagnoses Diagnosis snf (current) use of insulin (CMS/HCC V24, CMS/[facility] V28) Type 2 diabetes mellitus without complications (CMS/HCC V24, CMS/HCC V28) documented in this encounter Care Teams Customs Inspector Relationship Specialty Start Date End Date Delaney Sherman MD [address] [place] [phone] PCP - General Hospitalist Medicine 06/14/24 documented as of this encounter
--- OUTSIDE RECORDS SUMMARY | 2025-04-18 09:52 | XMS_ITS | Continuity of Care Document ---
Author Name [facility], Medical Address [address] [place] [id number] Organization Unknown Address [address] [place] [id number] Medications No known medications Problems No known problems
--- OUTSIDE RECORDS SUMMARY | 2025-04-18 09:52 | XMS_ITS | Patient Health Record ---
Author Organization [facility] liance Address [address] [place] [address] Care Team Providers Care Senior Energy Market Coordinator Name Role Phone Chris, Shelbi Primary Care Provider Unavailabl e Opal Gustafson Unavailable [phone] Clinical, Operations Unavailable Unavailable Rajwinder Johns Unavailable [phone] Allergies Allergen (clinical drug ingredient) Drug/Non Drug Allergy documented on EMR Reaction Allergy Type Onset Date Status Cloth tape (uncoded) skin redness/pain Allergy Active Zofran vomiting Drug Allergy Active Reason For Referral No Information Medications Medication SIG (Take, Route, Frequency, Duration) Notes Start Date End Date Status Lisinopril 20 MG 1 tablet Orally Once a day Active Montelukast Sodium 10 MG 1 tablet Orally Once a day Active Albuterol Sulfate HFA 108 (90 Base) MCG/ACT 1 puff as needed Inhalation every 4 hrs PRN Active Budesonide 2 MG/10ML 10 mL Orally Twice a day Member reports not taking. Not-Taking Albuterol Sulfate (2.5 MG/3ML) 0.083% 3 mL as needed Inhalation every 6 hrs PRN only Active Ipratropium-Albuterol 0.5-2.5 (3) MG/3ML 3 mL as needed Inhalation every 6 hrs Member reports not taking. Not-Taking Lantus SoloStar 100 UNIT/ML 20 units Subcutaneous daily; Duration: 30 days Active Oxygen Concentrator 2-3 liters 2lPM as needed to maintain 2 sat 88-92% continuous 2L PRN Active Insulin Aspart FlexPen 100 UNIT/ML [...] 30 days Member reports not taking. Not-Taking [facility] Fluticasone Propionate 50 MCG/ACT 1 spray [...] 1 tablet Orally Twice a day Active Atorvastatin Calcium 80 MG [...] Orally once a day at HS Active Problems Problem Type SNOMED Code ICD Code Onset Dates Problem Status W/U Status Risk Notes Problem Vitamin D deficiency (06367959) Vitamin D deficiency, unspecified (E55.9) Active confirmed Problem Dysuria (81893545) Dysuria (R30.0) Inactive confirmed Problem Type II diabetes mellitus without complication (446803260) Diabetes (E11.9) Inactive confirmed Problem Tinea unguium (745451037) Tinea unguium (B35.1) Active confirmed Problem Obstructive sleep apnea syndrome (14304111) ALDO on CPAP (G47.33) Active confirmed Problem Chest pain (55748718) Chest pain (R07.9) Problem resolved confirmed Problem Heart failure (84793357) Heart failure, unspecified (I50.9) Inactive confirmed Problem History of fall (997302218) History of falling (Z91.81) Active confirmed Problem Hypertension (23939846) HTN (hypertension) (I10) Inactive confirmed Problem Acute exacerbation of chronic obstructive airways disease (695790648) COPD exacerbation (J44.1) Problem resolved confirmed Problem COPD - Chronic obstructive pulmonary disease (14798631) COPD (chronic obstructive pulmonary disease) (J44.9) Active confirmed Problem Dyspnea (198658584) Dyspnea (R06.00) Inactive confirmed Problem Tachycardia (6587115) Tachycardia, unspecified (R00.0) Active confirmed Problem Mixed incontinence (428708023) Mixed incontinence (N39.46) Active confirmed Problem Generalized anxiety disorder (73746500) RACHNA (generalized anxiety disorder) (F41.1) Active confirmed Problem Polyneuropathy due to type 2 diabetes mellitus (510379602) Type 2 diabetes mellitus with diabetic polyneuropathy (E11.42) Active confirmed Problem Chronic kidney disease (177544617) CKD (chronic kidney disease) (N18.9) Inactive confirmed Problem Polyneuropathy (78951613) Polyneuropathy (G62.9) Inactive confirmed Problem Moderate recurrent major depression (83082931) Major depressive disorder, recurrent episode, moderate (F33.1) Active confirmed Problem Polymyalgia rheumatica (34286509) Polymyalgia rheumatica (M35.3) Active confirmed Problem Restless legs (31662977) Restless legs syndrome (RLS) (G25.81) Active confirmed Problem Dependence on supplemental oxygen (722718753848) 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) Active confirmed Problem Dementia (20785098) Dementia, unspecified, without behavioral disturbance (F03.90) Active confirmed Problem Chronic respiratory failure (88756789) Chronic respiratory failure with hypoxia (J96.11) Active confirmed Problem Chronic kidney disease stage 4 (000263951) Chronic kidney disease, stage 4 (severe) (N18.4) Active confirmed Problem Urinary tract infectious disease (92818843) Recurrent UTI (urinary tract infection) (N39.0) Active confirmed Problem Osteoarthritis of knee (606408366) Unilateral primary osteoarthritis, left knee (M17.12) Active confirmed Problem Extrapyramidal disorder (15436075) Extrapyramidal disorder (G25.9) Active confirmed Problem Chronic dacryocystitis (03358142) 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) Active confirmed Problem Panlobular emphysema (9117787) Panlobular emphysema (J43.1) Active confirmed Problem Acquired hammer toe of right foot (8882459550306300 ) Other hammer toe(s) (acquired), right foot (M20.41) Active confirmed Problem Acquired hammer toe of left foot (5500478364632969 ) Other hammer toe(s) (acquired), left foot (M20.42) Active confirmed Problem Abnormal gait (81023938) Other abnormalities of gait and mobility (R26.89) Active confirmed Problem Unspecified symptoms and signs involving the genitourinary system (R39.9) Active confirmed Problem Displaced trimalleolar fracture of right lower leg, subsequent encounter for closed fracture with routine healing (S82.851D) Active confirmed Problem Spondylosis without myelopathy (99443732) Arthritis, low back (M47.819) Active confirmed Problem Diarrhea (22118167) Diarrhea, unspecified (R19.7) Active confirmed Problem Chronic pain (62774144) Other chronic pain (G89.29) Active confirmed Problem Long-term current use of insulin (049981688) MCC (current) use of insulin (Z79.4) Active confirmed Problem Chronic diastolic heart failure (294054227) Chronic diastolic (congestive) heart failure (I50.32) Active confirmed Problem 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 failure (87913390864282) 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 kidney disease, or unspecified chronic kidney disease (I13.0) Active confirmed Problem Diabetic peripheral neuropathy associated with type 2 diabetes mellitus (7683426474185) Type 2 diabetes mellitus with diabetic neuropathy, unspecified (E11.40) Active confirmed Problem Morbid obesity (disorder) (094427548) Morbid (severe) obesity due to excess calories (E66.01) Active confirmed Problem Abrasion of skin (93101156) Skin abrasion (T14.8XXA) Active confirmed Problem Hyperglycemia due to type 2 diabetes mellitus (190634323477514) Uncontrolled type 2 diabetes mellitus with hyperglycemia (E11.65) Active confirmed Problem Disease caused by Severe acute respiratory syndrome coronavirus 2 (disorder) (779919465) COVID-19 virus infection (U07.1) Problem resolved confirmed Problem COVID-19 (400357945) COVID-19 (U07.1) Inactive confirmed Problem Chronic kidney disease stage 3A (218368693) Stage 3a chronic kidney disease (N18.31) Inactive confirmed Problem Body mass index 40+ - severely obese (849821812) Body mass index [BMI] 40.0-44.9, adult (Z68.41) Active confirmed Problem Diabetic on non-insulin injectable medication (finding) (768592563) Long-term current use of injectable noninsulin antidiabetic medication (Z79.85) Active confirmed Problem Acquired nasolacrimal duct stenosis (361469390) 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) Inactive confirmed Problem Late effect of fracture of lower extremities (13912940) Closed displaced trimalleolar fracture of right ankle, sequela (S82.851S) Inactive confirmed Vital Signs Heart Rate 73 /min 03/21/2025 Temperature 98.4 degrees Fahrenheit 03/21/2025 Respiratory Rate 18 /min 03/21/2025 Height-cm 152.4 cm 04/17/2025 Blood pressure diastolic 72 mm Hg 03/21/2025 Oximetry 97 % 03/21/2025 Weight-kg 97.07 kg 04/17/2025 Height 60 in 04/17/2025 Blood pressure systolic 138 mm Hg 03/21/2025 Weight 214 lbs 04/17/2025 BMI 41.79 kg/m2 04/17/2025 Encounters Encounter Location Date Provider Diagnosis [facility] [address] [place] [address] 09/26/2024 Rajwinder Jonhs [facility] [address] [place] [address] 10/10/2024 Rajwinder Johns [facility] [address] [place] [address] 10/10/2024 Rajwinder Johns [facility] [address] [place] [address] 12/02/2024 Rajwinder Johns [facility] (Closed) [address] [place] [address] 03/30/2025 Operations Clinical [facility] (Closed) [address] [place] [address] 04/05/2025 Opal Gustafson [facility] [address] [place] [address] 06/24/2024 Rajwinder Johns 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 kidney disease, or unspecified chronic kidney disease I13.0 ; Chronic diastolic (congestive) heart failure I50.32 ; Stage 3a chronic kidney disease N18.31 ; COPD (chronic obstructive pulmonary disease) J44.9 ; Type 2 diabetes mellitus with diabetic neuropathy, unspecified E11.40 ; terminal supervisor (current) use of insulin Z79.4 ; Major [...] dependent Z99.81 and Other chronic pain G89.[address] [address] 06/30/2024 Rajwinder Johns COPD (chronic obstructive pulmonary disease) J44.9 and RACHNA (generalized anxiety disorder) F41.1 [facility] [address] [place] [address] 10/28/2024 Operations Clinical Type 2 diabetes mellitus [...] abrasion T14.8XXA and Seasonal allergic reaction J30.[address] [address] 04/17/2025 Operations Clinical Type 2 diabetes mellitus [...] and mobility R26.89 and Tachycardia, unspecified R00.[address] [place] [address] 07/05/2024 Rajwinder Johns COPD (chronic obstructive pulmonary disease) J44.9 ; RACHNA (generalized anxiety disorder) F41.1 and 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 [place] [address] 07/07/2024 Rajwinder oJhns 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 kidney disease, or unspecified chronic kidney disease I13.0 ; Chronic diastolic (congestive) heart failure I50.32 ; Stage 3a chronic kidney disease N18.31 ; COPD (chronic obstructive pulmonary disease) J44.9 ; Type 2 diabetes mellitus with diabetic neuropathy, unspecified E11.40 ; terminal supervisor (current) use of insulin Z79.4 ; Major [...] dependent Z99.81 and Other chronic pain G89.[address] [place] [address] 07/15/2024 Rajwinder Johns COPD (chronic obstructive pulmonary [...] index [BMI] 40.0-44.9, adult Z68.41 ; terminal supervisor (current) use of insulin Z79.4 ; Long-term current use of injectable noninsulin antidiabetic medication Z79.85 and 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 kidney disease, or unspecified chronic kidney disease I13.[address] [place] [address] 07/22/2024 Rajwinder Johns COPD (chronic obstructive pulmonary [...] disease, or unspecified chronic kidney disease I13.[address] [address] 07/28/2024 Rajwinder Johns COPD (chronic obstructive pulmonary [...] index [BMI] 40.0-44.9, adult Z68.41 ; terminal supervisor (current) use of insulin Z79.4 ; Long-term current use of injectable noninsulin antidiabetic medication Z79.85 and 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 kidney disease, or unspecified chronic kidney disease I13.[address] [address] 08/02/2024 Rajwinder Johns COPD (chronic obstructive pulmonary [...] disease, or unspecified chronic kidney disease I13.[address] [place] [address] 08/08/2024 Rajwinder Johns COPD (chronic obstructive pulmonary [...] index [BMI] 40.0-44.9, adult Z68.41 ; terminal supervisor (current) use of insulin Z79.4 ; Long-term [...] for closed fracture with routine healing S82.851D [address] [address] 08/16/2024 Rajwinder Johns COPD (chronic obstructive pulmonary [...] for closed fracture with routine healing S82.851D [address] [place] [address] 08/23/2024 Rajwinder Nat COPD (chronic obstructive pulmonary [...] for closed fracture with routine healing S82.851D [address] [place] [address] 08/30/2024 Rajwinder Johns COPD (chronic obstructive pulmonary [...] index [BMI] 40.0-44.9, adult Z68.41 ; terminal supervisor (current) use of insulin Z79.4 ; Long-term [...] routine healing S82.851D and Skin abrasion T14.8XXA [place] [address] [facility] [address] [place] [address] 09/01/2024 Rajwinder Johns RACHNA (generalized anxiety disorder) F41.1 ; Other chronic pain G89.29 ; Unilateral primary osteoarthritis, left knee M17.12 ; Arthritis, low back M47.819 ; Displaced trimalleolar fracture of right lower leg, subsequent encounter for closed fracture with routine healing S82.851D ; Skin abrasion T14.8XXA and Major depressive disorder, recurrent episode, moderate F33.1 [facility] [address] [place] [address] 09/08/2024 Rajwinder Johns RACHNA (generalized anxiety disorder) F41.1 ; Other chronic pain G89.29 ; Unilateral primary osteoarthritis, left knee M17.12 ; Arthritis, low back M47.819 ; Displaced trimalleolar fracture of right lower leg, subsequent encounter for closed fracture with routine healing S82.851D ; Skin abrasion T14.8XXA and Major depressive disorder, recurrent episode, moderate F33.1 [place] [address] [facility] [address] [place] [address] 09/15/2024 Rajwinder Johns RACHNA (generalized anxiety disorder) [...] (severe) obesity due to excess calories E66.[address] [address] 09/22/2024 Rajwinder Nat RACHNA (generalized anxiety disorder) F41.1 ; Other [...] disease) J44.9 ; 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 ; terminal supervisor (current) use of insulin Z79.4 ; Long-term current use of injectable noninsulin antidiabetic medication Z79.85 ; Chronic kidney disease, stage 3b N18.32 and Morbid (severe) obesity due to excess calories E66.[address] [address] 09/29/2024 Rajwinder Johns RACHNA (generalized anxiety disorder) [...] disease) J44.9 ; 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 ; terminal supervisor (current) use of insulin Z79.4 ; Long-term current use of injectable noninsulin antidiabetic medication Z79.85 ; Chronic kidney disease, stage 3b N18.32 and Morbid (severe) obesity due to excess calories E66.01 [facility] [address] [place] [address] 10/07/2024 Rajwinder Johns RACHNA (generalized anxiety disorder) [...] (severe) obesity due to excess calories E66.[address] [address] 10/14/2024 Rajwinder Johns RACHNA (generalized anxiety disorder) [...] (severe) obesity due to excess calories E66.[address] [address] 10/21/2024 Rajwinder Johns RACHNA (generalized anxiety disorder) [...] (severe) obesity due to excess calories E66.[address] [address] 11/04/2024 Rajwinder Johns Arthritis, low back M47.819 [...] 3b N18.32 and Seasonal allergic reaction J30.2 [facility] [address] [place] [address] 11/14/2024 Rajwinder Johns Arthritis, low back M47.819 ; Type 2 diabetes mellitus with diabetic neuropathy, unspecified E11.40 ; 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 kidney disease, or unspecified chronic kidney disease I13.0 ; COPD (chronic obstructive pulmonary disease) J44.9 ; 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 and Chronic kidney disease, stage 3b N18.[address] [address] 11/28/2024 Rajwinder Johns Arthritis, low back M47.819 ; Type 2 diabetes mellitus with diabetic neuropathy, unspecified E11.40 ; 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 kidney disease, or unspecified chronic kidney disease I13.0 ; COPD (chronic obstructive pulmonary disease) J44.9 ; 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 and Chronic kidney disease, stage 3b N18.[address] [address] 04/27/2024 Rajwinder Evansard Closed displaced trimalleolar fracture of right ankle, sequela S82.851S [place] [address] [address] 06/06/2024 Rajwinder Johns Displaced trimalleolar fracture of right lower leg, subsequent encounter for closed fracture with routine healing S82.851D [address] [address] 12/16/2024 Rajwinder Evansard Arthritis, low back M47.819 ; Type 2 diabetes mellitus with diabetic neuropathy, unspecified E11.40 ; 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 kidney disease, or unspecified chronic kidney disease I13.0 ; COPD (chronic obstructive pulmonary disease) J44.9 ; 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 and Chronic kidney disease, stage 3b N18.[address] [address] 12/27/2024 Rajwinder Evansard COPD (chronic obstructive pulmonary disease) J44.9 ; Recurrent UTI (urinary tract infection) N39.0 ; Type 2 diabetes mellitus with diabetic neuropathy, unspecified E11.40 ; Uncontrolled type 2 diabetes mellitus with hyperglycemia E11.65 ; Chronic respiratory failure with hypoxia J96.11 ; MCC (current) use of insulin Z79.4 ; Long-term current use of injectable noninsulin antidiabetic medication Z79.85 and 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 [address] 2025 Rajwinder Johns COPD (chronic obstructive pulmonary disease) J44.9 ; Recurrent UTI (urinary tract infection) N39.0 ; Type 2 diabetes mellitus with diabetic neuropathy, unspecified E11.40 ; Uncontrolled type 2 diabetes mellitus with hyperglycemia E11.65 ; Chronic respiratory failure with hypoxia J96.11 ; terminal supervisor (current) use of insulin Z79.4 ; Long-term current use of injectable noninsulin antidiabetic medication Z79.85 ; 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 ; 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 kidney disease, or unspecified chronic kidney disease I13.0 ; Chronic kidney disease, stage 3b N18.32 ; Vitamin D deficiency, unspecified E55.9 and Mixed incontinence N39.[address] [address] 01/27/2025 Rajwinder Johns COPD (chronic obstructive pulmonary disease) J44.9 ; Recurrent UTI (urinary tract infection) N39.0 ; Type 2 diabetes mellitus with diabetic neuropathy, unspecified E11.40 ; Uncontrolled type 2 diabetes mellitus with hyperglycemia E11.65 ; Chronic respiratory failure with hypoxia J96.11 ; MCC (current) use of insulin Z79.4 ; Long-term current use of injectable noninsulin antidiabetic medication Z79.85 ; 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 ; 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 kidney disease, or unspecified chronic kidney disease I13.0 ; Mixed incontinence N39.46 and Chronic kidney disease, stage 4 (severe) N18.[address] [address] 01/30/2025 Rajwinder Johns COPD (chronic obstructive pulmonary disease) J44.9 ; Recurrent UTI (urinary tract infection) N39.0 ; Type 2 diabetes mellitus with diabetic neuropathy, unspecified E11.40 ; Uncontrolled type 2 diabetes mellitus with hyperglycemia E11.65 ; Chronic respiratory failure with hypoxia J96.11 ; MCC (current) use of insulin Z79.4 ; Long-term current use of injectable noninsulin antidiabetic medication Z79.85 ; 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 ; 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 kidney disease, or unspecified chronic kidney disease I13.0 ; Mixed incontinence N39.46 and Chronic kidney disease, stage 4 (severe) N18.[address] [address] 02/14/2025 Rajwinder Johns COPD (chronic obstructive pulmonary disease) J44.9 ; Type 2 diabetes mellitus with diabetic neuropathy, unspecified E11.40 ; Uncontrolled type 2 diabetes mellitus with hyperglycemia E11.65 ; Chronic respiratory failure with hypoxia J96.11 ; terminal supervisor (current) use of insulin Z79.4 ; Long-term current use of injectable noninsulin antidiabetic medication Z79.85 ; 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 ; 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 kidney disease, or unspecified chronic kidney disease I13.0 and Chronic kidney disease, stage 4 (severe) N18.[address] [address] 02/24/2025 Rajwinder Johns COPD (chronic obstructive pulmonary disease) J44.9 ; Type 2 diabetes mellitus with diabetic neuropathy, unspecified E11.40 ; Uncontrolled type 2 diabetes mellitus with hyperglycemia E11.65 ; Chronic respiratory failure with hypoxia J96.11 ; MCC (current) use of insulin Z79.4 ; Long-term current use of injectable noninsulin antidiabetic medication Z79.85 ; 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 ; 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 kidney disease, or unspecified chronic kidney disease I13.0 and Chronic kidney disease, stage 4 (severe) N18.[address] [address] 03/09/2025 Rajwinder Johns COPD (chronic obstructive pulmonary disease) J44.9 ; Type 2 diabetes mellitus with diabetic neuropathy, unspecified E11.40 ; Uncontrolled type 2 diabetes mellitus with hyperglycemia E11.65 ; Chronic respiratory failure with hypoxia J96.11 ; MCC (current) use of insulin Z79.4 ; Long-term current use of injectable noninsulin antidiabetic medication Z79.85 ; 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 ; 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 kidney disease, or unspecified chronic kidney disease I13.0 and Chronic kidney disease, stage 4 (severe) N18.[address] [address] 03/21/2025 Rajwinder Johns COPD (chronic obstructive pulmonary disease) J44.9 ; Type 2 diabetes mellitus with diabetic neuropathy, unspecified E11.40 ; Uncontrolled type 2 diabetes mellitus with hyperglycemia E11.65 ; Chronic respiratory failure with hypoxia J96.11 ; MCC (current) use of insulin Z79.4 ; Long-term current use of injectable noninsulin antidiabetic medication Z79.85 ; 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 ; 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 kidney disease, or unspecified chronic kidney disease I13.0 and Chronic kidney disease, stage 4 (severe) N18.[address] [address] 02/03/2025 Rajwinder Johns Diarrhea, unspecifie d R19.[address] [address] 12/02/2024 Rajwinder Johns History of falling Z91.81 [place] [address] [address] 10/27/2024 Rajwinder Johns Arthritis, low back M47.819 [...] Treatment Notes Treatment Clinical Notes Section Notes 04/27/2024 Closed displaced trimalleolar fracture of right [...] - Observe fluid restrictions if advised by transformation specialist/PCP - Continue routine F/U with transformation specialist and PCP - Contact provider or [...] pulmologist later today - Dr. Frederick of [place] - Continue medications and inhalers as prescribed [...] sat 98% - Had follow up with seat coverer - Continue medications and inhalers as prescribed [...] - Observe fluid restrictions if advised by transformation specialist/PCP - Continue routine F/U with transformation specialist and PCP - Contact provider or [...] sat 98% - Had follow up with seat coverer - Continue medications and inhalers as prescribed [...] sat 98% - Had follow up with seat coverer - Continue medications and inhalers as prescribed [...] sat 98% - Had follow up with seat coverer - Continue medications and inhalers as prescribed [...] sat 98% - Had follow up with seat coverer - Continue medications and inhalers as prescribed [...] sat 98% - Had follow up with seat coverer - Continue medications and inhalers as prescribed [...] sat 98% - Had follow up with seat coverer - Continue medications and inhalers as prescribed [...] to music. - Member considering assistance from [facility] - Follow up with PCP routinely, [...] to music. - Member considering assistance from [facility] but declines today - Follow up [...] listening to music. - Member agreeable to [facility] referral today - Follow up with [...] left with him - Member agreeable to [facility] referral today - Follow up with [...] listening to music. - Member agreeable to [facility] referral - In process - Follow [...] listening to music. - Member agreeable to [facility] referral - In process - Follow up with PCP routinely, and prescriber - Angie Mccray, advised to make her aware of [facility] referral to community therapist - Reminded to [...] listening to music. - Member agreeable to [facility] referral - In process - Follow up with PCP routinely, and prescriber - Angie Mccray, advised to make her aware of [facility] referral to community therapist - Reminded to [...] listening to music. - Member agreeable to [facility] referral - awaiting contact - Follow [...] pathways around bedroom, apartment in general - Son/MANAGEMENT INFORMATION SYSTEMS DIRECTOR asked to help with this - Refer [...] to minimize risk of unwanted weight loss 04/17/2025 Type 2 diabetes mellitus with diabetic neuropathy, unspecified (ICD-10 - E11.40) 04/17/2025 Uncontrolled type 2 diabetes mellitus with hyperglycemia (ICD-10 - E11.65) 03/09/2025 Type 2 diabetes mellitus with diabetic [...] Chronic/Labile - continues with complaints, seen at [facility] yesterday and received c/b today no [...] medication as prescribed - Novolog per , [facility] weekly - Recommend yearly eye exams, A1c - Recommend diabetic diet - offered referral to clinical trial educator - declines - Discussed potential for [...] medication as prescribed - Novolog per , [facility] weekly - Recommend yearly eye exams, A1c - Recommend diabetic diet - offered referral to clinical trial educator - declines - Discussed potential for [...] Recommend diabetic diet - offered referral to clinical trial educator - declines - Discussed potential for [...] medication as prescribed - Novolog per , [facility] weekly - Recommend yearly eye exams, A1c - Recommend diabetic diet - offered referral to clinical trial educator - declines - Discussed potential for [...] medication as prescribed - Novolog per , [facility] weekly - Recommend yearly eye exams, A1c - Recommend diabetic diet - offered referral to clinical trial educator - declines - Discussed potential for [...] pain/stress on joints - Continue PT at [facility] - Use assistive devices to [...] pain/stress on joints - Continue PT at [facility] - Use assistive devices to [...] pain/stress on joints - Continue PT at [facility] - Use assistive devices to [...] pain/stress on joints - Continue PT at [facility] - Use assistive devices to [...] pain/stress on joints - Continue PT at [facility] - Use assistive devices to [...] pain/stress on joints - Continue PT at [facility] - Use assistive devices to [...] of L knee M47.819 Arthritis, low back S82.853P displaced trimalleolar fracture or RLE, subsequent encounter with routine healing Chronic/Stable - Pain/stiffness in multiple joints at baseline - Educated to exercise regularly (low impact) for short periods as tolerated and PT/rehab may be helpful with movement and reduce pain/stress on joints - Continue PT at [facility] - Use assistive devices to [...] to music. - Member declines assistance from [facility] - Follow up with PCP and [...] to music. - Member declines assistance from [facility] - Follow up with PCP and [...] s/s of anxiety. Member declines assistance from [facility] - Follow up with PCP and [...] s/s of anxiety. Member declines assistance from [facility] - Follow up with PCP and [...] s/s of anxiety. Member declines assistance from [facility] - Follow up with PCP and [...] s/s of anxiety. Member declines assistance from [facility] - Follow up with PCP and [...] s/s of anxiety. Member declines assistance from [facility] - Follow up with PCP and [...] s/s of anxiety. Member declines assistance from [facility] - Follow up with PCP and [...] s/s of anxiety. Member declines assistance from [facility] - Follow up with PCP and prescriber - Angie Mccray, advised to f/u on referral to community health therapist - Reminded to call pcp or this APC for worsening anxiety 06/30/2024 RACHNA (generalized anxiety disorder) (ICD-10 - F41.1) Chronic/Improved since ED visit Reviewed nature of anxiety, which can range from excessive worry to incapacitating baseless fear. Reviewed nonmedical management techniques. Member denies increased s/s of anxiety. Member declines assistance from [facility] - Follow up with PCP and prescriber - Angie Mccray, advised to f/u on referral to community health therapist - Reminded to call pcp or this APC for worsening anxiety 06/24/2024 Chronic diastolic (congestive) heart failure (ICD-10 - I50.32) 06/24/2024 Stage 3a chronic kidney disease (ICD-10 [...] by controlling BP. Continue to f/u with PCP/Cover Cutter routinely 11/04/2024 Hypertensive heart and chronic kidney [...] by controlling BP. Continue to f/u with PCP/Cover Cutter routinely 10/28/2024 Dementia, unspecified, without behavioral disturbance [...] by controlling BP. Continue to f/u with PCP/Cover Cutter routinely 11/28/2024 Hypertensive heart and chronic kidney [...] by controlling BP. Continue to f/u with PCP/Cover Cutter routinely 12/16/2024 Hypertensive heart and chronic kidney [...] by controlling BP. Continue to f/u with PCP/Cover Cutter routinely 12/27/2024 Type 2 diabetes mellitus with [...] - F/U with PCP/endocrine for ongoing mgmt/monitoring 04/17/2025 Dementia, unspecified, without behavioral disturbance (ICD-10 - F03.90) 03/21/2025 Chronic respiratory failure with hypoxia (ICD-10 - J96.11) 03/09/2025 Chronic respiratory failure with hypoxia (ICD-10 - J96.11) 04/17/2025 Major depressive disorder, recurrent episode, moderate (ICD-10 - F33.1) 02/24/2025 Chronic respiratory failure with hypoxia (ICD-10 [...] loss - Follow up with PCP and Accounting Machine Operator routinely - Seek ED evaluation for [...] loss - Follow up with PCP and Accounting Machine Operator routinely - Seek ED evaluation for hypoxia, dyspnea, chest pain 06/24/2024 Type 2 diabetes mellitus with diabetic [...] failure with hypoxia (ICD-10 - J96.11) 01/27/2025 terminal supervisor (current) use of insulin (ICD-10 - Z79.4) 2025 Chronic respiratory failure with hypoxia (ICD-10 - J96.11) 01/30/2025 Chronic respiratory failure with hypoxia (ICD-10 - J96.11) 02/14/2025 MCC (current) use of insulin (ICD-10 - Z79.4) 04/17/2025 RACHNA (generalized anxiety disorder) (ICD-10 - F41.1) 03/21/2025 MCC (current) use of insulin (ICD-10 - Z79.4) 02/24/2025 terminal supervisor (current) use of insulin (ICD-10 - Z79.4) 03/09/2025 MCC (current) use of insulin (ICD-10 - Z79.4) 03/09/2025 Long-term current use of injectable noninsulin antidiabetic medication (ICD-10 - Z79.85) 02/24/2025 Long-term current use of injectable noninsulin antidiabetic medication (ICD-10 - Z79.85) 03/21/2025 Long-term current use of injectable noninsulin antidiabetic medication (ICD-10 - Z79.85) 04/17/2025 Restless legs syndrome (RLS) (ICD-10 - G25.81) 02/14/2025 Long-term current use of injectable noninsulin antidiabetic medication (ICD-10 - Z79.85) 01/30/2025 MCC (current) use of insulin (ICD-10 - Z79.4) 01/27/2025 Long-term current use of injectable noninsulin antidiabetic medication (ICD-10 - Z79.85) 2025 MCC (current) use of insulin (ICD-10 - Z79.4) 12/27/2024 terminal supervisor (current) use of insulin (ICD-10 - Z79.4) [...] disease, stage 3b (ICD-10 - N18.32) 07/07/2024 MCC (current) use of insulin (ICD-10 - Z79.4) 07/15/2024 Chronic kidney disease, stage 3b (ICD-10 - N18.32) 06/24/2024 terminal supervisor (current) use of insulin (ICD-10 - Z79.4) 06/24/2024 Major depressive disorder, recurrent episode, moderate (ICD-10 - F33.1) F41.1 RACHNA Chronic/Stable - Reviewed nature of anxiety and depressive sxs - Reminded to schedule f/u with Angie Mccray prescriber and to f/u with new therapist in community as referred by Angie - Reviewed nonmedical management techniques - Continue medications as prescribed - Continue outpatient F/U with psych/prescribers and involve [facility] team as appropriate - Monitor for [...] Continue outpatient F/U with psych/prescribers and involve [facility] team as appropriate - Monitor for increased [...] Controlled - Weight gain since home from [facility] - Avoid gaining additional weight and try [...] Controlled - Weight gain since home from [facility] - Avoid gaining additional weight and try [...] Controlled - Weight gain since home from [facility] - Avoid gaining additional weight and try [...] Controlled - Weight gain since home from [facility] - Avoid gaining additional weight and try [...] Controlled - Weight gain since home from [facility] - Avoid gaining additional weight and try [...] exacerbation Continue nebulizer treatments as prescribed by seat coverer Recommend closing windows, running air purifier or [...] exacerbation Continue nebulizer treatments as prescribed by seat coverer Recommend closing windows, running air purifier or [...] Z99.81) 03/21/2025 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) 04/17/2025 Extrapyramidal disorder (ICD-10 - G25.9) 03/09/2025 Hypertensive heart and chronic kidney disease [...] goal <140/90, ideally <130/80 - F/U with PCP/transformation specialist/n ephrologist for ongoing mgmt and monitoring [...] goal <140/90, ideally <130/80 - F/U with PCP/transformation specialist/n ephrologist for ongoing mgmt and monitoring [...] goal <140/90, ideally <130/80 - F/U with PCP/transformation specialist/n ephrologist for ongoing mgmt and monitoring 04/17/2025 ALDO on CPAP (ICD-10 - G47.33) 02/14/2025 Hypertensive heart and chronic kidney disease [...] goal <140/90, ideally <130/80 - F/U with PCP/transformation specialist/n ephrologist for ongoing mgmt and monitoring [...] as BP remains stable - F/U with PCP/transformation specialist/n ephrologist for ongoing mgmt and monitoring [...] Recommend diabetic diet - offered referral to clinical trial educator - declines - Discussed potential for [...] medication as prescribed - Novolog per , [facility] weekly - Recommend yearly eye exams, A1c - Recommend diabetic diet - offered referral to clinical trial educator - declines - Discussed potential for [...] medication as prescribed - Novolog per , [facility] weekly - Recommend yearly eye exams, A1c - Recommend diabetic diet - offered referral to clinical trial educator - declines - Discussed potential for [...] medication as prescribed - Novolog per , [facility] weekly - Recommend yearly eye exams, A1c - Recommend diabetic diet - offered referral to clinical trial educator - declines - Discussed potential for [...] N39.46) 06/24/2024 Mixed incontinence (ICD-10 - N39.46) 06/24/2024 Recurrent UTI (urinary tract infection) (ICD-10 - N39.0) N39.46 Mixed incontinence Chronic/Labile Member uses pads on a daily basis. - Educated member to watch for signs of skin breakdown, and UTI (fever, pain or odor w/ urination, flank pain), call provider w/ any new symptoms - member reports frequent UTI. lexenlty denies urinary s/sx. Denies pain or buring [...] of insulin (ICD-10 - Z79.4) 07/22/2024 terminal supervisor (current) use of insulin (ICD-10 - Z79.4) [...] use of insulin (ICD-10 - Z79.4) 08/02/2024 MCC (current) use of insulin (ICD-10 - Z79.4) 08/08/2024 terminal supervisor (current) use of insulin (ICD-10 - Z79.4) 08/23/2024 terminal supervisor (current) use of insulin (ICD-10 - Z79.4) 08/16/2024 MCC (current) use of insulin (ICD-10 - Z79.4) 08/30/2024 terminal supervisor (current) use of insulin (ICD-10 - Z79.4) [...] as BP remains stable - F/U with PCP/transformation specialist/n ephrologist for ongoing mgmt and monitoring [...] goal <140/90, ideally <130/80 - F/U with PCP/transformation specialist/n ephrologist for ongoing mgmt and monitoring [...] - F/U with PCP/nephro for ongoing monitoring/mgmt 04/17/2025 Other chronic pain (ICD-10 - G89.29) 04/17/2025 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 Continue to f/u with PCP/Cover Cutter routinely 10/21/2024 Hypertensive heart and chronic kidney [...] by controlling BP. Continue to f/u with PCP/Cover Cutter routinely 10/07/2024 Hypertensive heart and chronic kidney [...] by controlling BP. Continue to f/u with PCP/Cover Cutter routinely 09/29/2024 Hypertensive heart and chronic kidney [...] by controlling BP. Continue to f/u with PCP/Cover Cutter routinely 09/22/2024 Hypertensive heart and chronic kidney [...] by controlling BP. Continue to f/u with PCP/Cover Cutter routinely 09/15/2024 Hypertensive heart and chronic kidney [...] by controlling BP. Continue to f/u with PCP/Cover Cutter routinely 08/30/2024 Long-term current use of injectable [...] - F/U with PCP/nephro for ongoing monitoring/mgmt 04/17/2025 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 kidney disease, or unspecified chronic kidney disease (ICD-10 - I13.0) 04/17/2025 Chronic diastolic (congestive) heart failure (ICD-10 - I50.32) 10/28/2024 Chronic diastolic (congestive) heart failure (ICD-10 [...] joints - Will start outpatient PT at [facility] by next week. - Use assistive [...] PLACE ORDER FOR HOME PEDAL DEVICE THROUGH [facility] 09/15/2024 COPD (chronic obstructive pulmonary disease) (ICD-10 [...] joints - Will start outpatient PT at [facility] by next week. - Use assistive [...] PLACE ORDER FOR HOME PEDAL DEVICE [facility]ROUGH [facility] 08/08/2024 Other chronic pain (ICD-10 - G89.29) [...] joints - Will start outpatient PT at [facility] by next week. - Use assistive [...] PLACE ORDER FOR HOME PEDAL DEVICE THROUGH [facility] 08/16/2024 Other chronic pain (ICD-10 - G89.29) [...] joints - Will start outpatient PT at [facility] by next week. 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) 06/24/2024 Chronic dacryocystitis of bilateral lacrimal passages [...] Z99.81) 10/28/2024 Panlobular emphysema (ICD-10 - J43.1) 04/17/2025 Panlobular emphysema (ICD-10 - J43.1) 04/17/2025 COPD (chronic obstructive pulmonary disease) (ICD-10 - J44.9) 10/21/2024 MCC (current) use of insulin (ICD-10 - Z79.4) 10/14/2024 terminal supervisor (current) use of insulin (ICD-10 - Z79.4) 10/28/2024 COPD (chronic obstructive pulmonary disease) (ICD-10 - J44.9) 10/07/2024 terminal supervisor (current) use of insulin (ICD-10 - Z79.4) 09/29/2024 terminal supervisor (current) use of insulin (ICD-10 - Z79.4) 09/22/2024 terminal supervisor (current) use of insulin (ICD-10 - Z79.4) 09/15/2024 terminal supervisor (current) use of insulin (ICD-10 - Z79.4) [...] failure with hypoxia (ICD-10 - J96.11) 04/17/2025 Chronic respiratory failure with hypoxia (ICD-10 - J96.11) 04/17/2025 Unilateral primary osteoarthritis, left knee (ICD-10 - M17.12) 10/28/2024 Unilateral primary osteoarthritis, left knee (ICD-10 [...] M35.3) 06/24/2024 Polymyalgia rheumatica (ICD-10 - M35.3) 06/24/2024 Uncontrolled type 2 diabetes mellitus with [...] E66.01) 10/28/2024 Polymyalgia rheumatica (ICD-10 - M35.3) 04/17/2025 Polymyalgia rheumatica (ICD-10 - M35.3) 10/28/2024 Arthritis, low back (ICD-10 - M47.819) 07/07/2024 Extrapyramidal disorder (ICD-10 - G25.9) 06/24/2024 Extrapyramidal disorder (ICD-10 - G25.9) 04/17/2025 Arthritis, low back (ICD-10 - M47.819) 04/17/2025 Recurrent UTI (urinary tract infection) (ICD-10 - N39.0) 06/24/2024 Panlobular emphysema (ICD-10 - J43.1) 07/07/2024 Panlobular emphysema (ICD-10 - J43.1) 10/28/2024 Chronic kidney disease, stage 3b (ICD-10 - N18.32) 10/28/2024 Recurrent UTI (urinary tract infection) (ICD-10 - N39.0) 07/07/2024 Chronic respiratory failure with hypoxia (ICD-10 - J96.11) 06/24/2024 Chronic respiratory failure with hypoxia (ICD-10 - J96.11) 04/17/2025 Mixed incontinence (ICD-10 - N39.46) 04/17/2025 Displaced trimalleolar fracture of right lower leg, subsequent encounter for closed fracture with routine healing (ICD-10 - S82.851D) 06/24/2024 Chronic kidney disease, stage 3b (ICD-10 [...] - member requires assistance, cueing for ADL's, MANAGEMENT INFORMATION SYSTEMS DIRECTOR for IADL's - f/u PCP prn 07/07/2024 Dementia, unspecified, without behavioral disturbance (ICD-10 - F03.90) Chronic/Stable - Mild memory issue - member is a/o during visit; patient and family deny confusion and wandering - member requires assistance, cueing for ADL's, MANAGEMENT INFORMATION SYSTEMS DIRECTOR for IADL's - f/u PCP prn 04/17/2025 terminal supervisor (current) use of insulin (ICD-10 - Z79.4) 04/17/2025 Long-term current use of injectable noninsulin antidiabetic medication (ICD-10 - Z79.85) 06/24/2024 Unilateral primary osteoarthritis, left knee (ICD-10 - M17.12) 07/07/2024 Unilateral primary osteoarthritis, left knee (ICD-10 - M17.12) 10/28/2024 terminal supervisor (current) use of insulin (ICD-10 - Z79.4) 10/28/2024 Long-term current use of injectable noninsulin antidiabetic medication (ICD-10 - Z79.85) 04/17/2025 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) 07/07/2024 Displaced trimalleolar fracture of right lower leg, subsequent encounter for closed fracture with routine healing (ICD-10 - S82.851D) Subacute/Improving Appropriate healing per Ortho - continue up routinely Wearing a walking boot, ambulating with assistance and use of walker Avoid falls, report changes in pain or mobility Continue home PT - [facility] Continue tylenol as needed 06/24/2024 Displaced trimalleolar fracture of right lower leg, subsequent encounter for closed fracture with routine healing (ICD-10 - S82.851D) Subacute/Improving Appropriate healing per Ortho - continue up routinely Wearing a walking boot, ambulating with assistance and use of walker Avoid falls, report changes in pain or mobility Continue home PT - [facility] Continue tylenol as needed 06/24/2024 Arthritis, low back (ICD-10 - M47.819) 07/07/2024 Arthritis, low back (ICD-10 - M47.819) 10/28/2024 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) 04/17/2025 Morbid (severe) obesity due to excess calories (ICD-10 - E66.01) 04/17/2025 Body mass index [BMI] 40.0-44.9, adult (ICD-10 - Z68.41) 10/28/2024 Morbid (severe) obesity due to excess calories (ICD-10 - E66.01) 07/07/2024 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) 06/24/2024 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) 06/24/2024 Other chronic pain (ICD-10 - G89.29) [...] Z68.41) 04/17/2025 Skin abrasion (ICD-10 - T14.8XXA) 10/28/2024 Skin abrasion (ICD-10 - T14.8XXA) 04/17/2025 History of falling (ICD-10 - Z91.81) 04/17/2025 Vitamin D deficiency, unspecified (ICD-10 - E55.9) 10/28/2024 Seasonal allergic reaction (ICD-10 - J30.2) 04/17/2025 Chronic kidney disease, stage 4 (severe) [...] R26.89) 04/17/2025 Tachycardia, unspecified (ICD-10 - R00.0) 06/06/2024 Other 06/24/2024 Other Reviewed contac t info for this sports book writer and to consider calling for urgent [...] Insured Coverage Start Date Coverage End Date [facility] SCO ([id number]) [address] [place] [address] [id number] Mine Peacock Self - patient is the insured 3 9 Medical (General) History Medical History History ICD Code Chest pain (resolved 09/26/2023) Extrapyramidal disorder G25.9 Major depressive disorder, recurrent epi sode, moderate F33.1 Urinary incontinence, unspecified type R 32 Acute cystitis without hematuria N30.00 COPD exacerbation (resolved 07/14/2024) undefined COVID-19 virus infection (resolved 07/14) Surgical History Surgery Date(Month/[place] [facility] [place]24 Hospitalization History Reason Date(Month/Year) [facility] ED - Hyperglycemia 2024 [facility] ED- COPD exac, ?UTI 12/23 [facility] [place] COPD exac 06/26/2024 [facility] for STR following ankle fracture 05/2024-06/22/2024 [facility] Right bi-malleolar fracture 04/2024 [facility] for dysuria left AMA d/t long wait time 04/03/2024 [facility] ED bronchitis 02/13/24 [facility] ED chest and back pain (ACS ruled ou t) 12/04/23 [facility] ED chest and back pain (ACS ruled ou t) 12/02/23 [facility] - ? Sepsis (ruled out) 11/28- [facility]- COPD exac, UTI 11/17-04/05
--- OUTSIDE RECORDS SUMMARY | 2025-04-18 09:52 | XMS_ITS | Patient Health Record ---
Author Organization [facility] Address [address] [place] [address] Care Team Providers Care Termite Technician Name Role Phone José Manuel Bowman MD Primary Care Provider UnavailEllis Bernabe Unavailable [phone] Wallace Graham MD Unavailable Unavailable Allergies Allergen (clinical drug ingredient) Drug/Non Drug Allergy documented on EMR Reaction Allergy Type Onset Date Status trimethobenzamide Tigan Unknown Drug Allergy Active Reason For Referral No Information Problems Problem Type SNOMED Code ICD Code Onset Dates Problem Status W/U Status Risk Notes Problem Ulcerative colitis (02100777) Ulcerative colitis (K51.90) Active confirmed Plan Of Treatment No Information Insurance Providers Payer Name Payer Address Payer Phone Subscriber Number Group Number Insured Name Patient Relationship to Insured Coverage Start Date Coverage End Date MEDICARE OF [place] [address] [place] [id number] [phone] [id number] DESMOND BROOKE Self - patient is the insured MEDICAID OF [facility] [address] [place] [address] [id number] DESMOND BROOKE Self - patient is the insured Medical (General) History Medical History History ICD Code colonoscopy 11-09-2006 gerd Surgical History Surgery Date(Month/Year) cholecystectomy hysterectomy with oophorectomy D&C and tubal ligation
--- OUTSIDE RECORDS SUMMARY | 2025-04-18 09:52 | XMS_ITS | Encounter Summary ---
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 { reasonForRequest : SOB/cough/back pain , patientReports : &quot ;, denies :[ Increased work of breathing/labored with or without fever ,"Unable to speak in full sentences without distress , Discoloration of skin -cyanosis", Needs to sleep sitting up, can t catch breath , Shortness of breath in settingof confusion ], chiefComplaints : Cough, Breathing Problems, Back Pain ,&qu ot;pmh : COPD/Asthma, Diabetes Mellitus Type 2 , allergies : No KnownDrug Allergies , otherAllergies : , painAssessment : , visitOutcome : , additionalComments : 75 y.o female complainsof Cough, Breathing Problems, Back Pain\nPatient states she has COPD, reports she has a cough \"but I can't get the phlegm to come up\ . Patient states \ my back is killing me\ . Patient reports cough started yesterday and she has been using breathing treatments as prescribed. Patient reports her back pain is constant, not just with coughing. Patient states she has had back pain for approx one week, states she had a UTI and was treated with a complete course of antibiotics. Patient states it is her lower back that hurts straight across, denies any known injury to the area.Patient endorses chills alternating with sweats, but denies measured fevers. Patient reports feeling short of breath, states when she ambulates to the bathroom she ends up gasping for air. Patient also reports she is wheezing, no audible wheezing heard at time of call. Patient states she wears 2L oxygen via nasal cannula at all times. Patient speaking in full, complete sentences at time of call. Patient states she always sleeps in a recliner chair sitting up, this is not new since being sick. Iprovided information on the mobile health provider response time and advised the patient and/or caregiver to monitor reported signs and symptoms. I discussed the warning signs of when to seek emergency care -Narda Figueroa RN } Encountered patient seated upright and conscious. Patient reports approximately one week of shortness of breath at rest as well as shortness of breath while attempting to exert herself. Patient also reports a productive, cough, yielding, yellow sputum since experiencing the shortness of breath. Patient denies chest pain and fevers and acute changes in vision. Patient additionally states she has her own nebulizer machine and took one duoneb treatment approximately one hour prior to contact with this senior writer. POCT Covid and flu swabs performed, both resulted negative; [facility] notified. Skin warm, dry and of appropriate color for ethnicity. Head and neck, free of trauma and edema. -JVD. Breath sounds exhibit expiratory wheezes in all rievrs. Abdomen is soft, non-tender and non-distended. Upper extremities, free of trauma and edema. Lower extremities exhibit 2+ pitting edema on theright and trace edema on the left; peripheral pulses present throughout. [facility] contacted: 40 mg of PO prednisone administered after medication ???rights?? were reconciled with patient. [facility] state sale senior writer prescription for further treatment to a pharmacy of patient???s choice. [facility] states patient should be seen by her primary care this coming week for more extensive workup. Patient was encouraged to monitor herself for worsening shortness of breath, chest pain or fevers and was encouraged to seek further medical attention including 911 if said symptoms were to develop. Patient verbalizes understanding of the plan and states she is comfortable remaining home today. IV_(FLUIDS_AND/OR_MEDICATION), MEDICATION_IM, ORAL_MEDICATION, EKG, POC_FLU_STREP, COVID_TEST Written by Medical [facility] on 2025-04-08
--- OUTSIDE RECORDS SUMMARY | 2025-04-18 09:53 | XMS_ITS | Clinical Summary ---
Author Organization [facility] Address [address] [place] [address] Phone Care Team Providers Care Enrolled Nurse Name Role Phone Shelbi Perez MD Primary Care Provider [phone] Allergies Active Allergy Reactions Criticality Noted Date Comments Adhesive Tape 08/12/2021 Other reaction(s): skin irritation Fluticasone-Sodium Chloride Other (see comments) 08/12/2021 Trimethobenzamide 07/09/2021 Other reaction(s): GI s/s Medications acetaminophen (TYLENOL) 500 MG tablet Active Albuterol Sulfate 108 (90 Base) MCG/ACT aerosol powder 1 puff by Other route Active Aclidinium [place] ([place] [employer] IN) Inhale 4 Active insulin [...] MINI PEN NEEDLES 31G X 5 MM [facility] USE TO ADMINISTER INSULIN TWICE DAILY 2 [...] to complete this topic Insurance [place] [employer] ([id number]) [place] [id number] Care Teams Enrolled Nurse Relationship Specialty Start Date End Date Shelbi Perez MD [facility] [place] [address] PCP - General Internal Medicine 09/18/21
--- OUTSIDE RECORDS SUMMARY | 2025-04-18 09:53 | XMS_ITS | Patient Health Record ---
Author Organization [facility] denise Sheldon Address [address] [place] [address] Care Team Providers Care Wetland Scientist Name Role Phone Chris BROWNE, [facility] Primary Care Provider Nik Horner Unavailable [phone] Allergies No Known Allergies Results Component Value Reference Range Notes HEMOGLOBIN A1C (GLYCOHEMOGLO BIN) Reviewed date:04/04/2025 10:02:36 AM Interpretation: Performing Lab: Notes/Report: HEMOGLOBIN A1C % (HH) 7.0 Reason For Referral No Information Medications Medication SIG (Take, Route, Frequency, Duration) Notes Start Date End Date Status glipiZIDE ER 2.5 MG TAKE 1 TABLET BY MARLO TH EVERY DAY Oral; Duration: 30 Active traZODone HCl 100 MG Oral Once a day Active Destin Aspirin 81 1 tablet Once a day Active Levemir FlexTouch 100 UNIT/ML Subcutaneous; Duration: 37 Not-Taking Atorvastatin Calcium 80 MG Oral Once a day Active Myrbetriq 25 MG Oral; Duration: 30 Active Lidocaine 5 % External; Duration: 30 Active rOPINIRole HCl 1 MG 2 tablet Oral Once a day Active Montelukast Sodium 10 MG Oral Once a day Active Extra Depth Orthopedic Shoes (1 Pair) with Customized Heat Molded Multidensity Innersoles (3 Pair) as directed Dx: NIDDM/Polyneuropathy (E11.42), Hammertoe Foot Deformity (M20.41,M20.42), Preulcerative Skin Lesion(s) (L85.1 Active D3-1000 Active buPROPion HCl ER (XL) 150 MG 1 tablet in the morning Oral Active metFORMIN HCl 500 MG Oral Once a day Not-Taking Gabapentin 300 MG Oral Once a day Active Immunizations Vaccine Route Administration Date Status Comme nts Influenza Unknown 03/13/2021 Administered Influenza Unknown 04/14/2024 Administered COVID-19 Pfizer BioNTech Vaccine Unknown 05/10/2021 [...] Problem Acquired hammer toe of right foot (3027607001231334 ) Other hammer toe(s) (acquired), right foot (M20.41) Active confirmed Response to treatment, Improvemen t Problem Acquired hammer toe of left foot (4729077630691835 ) Other hammer toe(s) (acquired), left foot (M20.42) Active confirmed Response to treatment, Improvemen t Problem Polyneuropathy due to type 2 diabetes mellitus (561576822) Type 2 diabetes mellitus with diabetic polyneuropathy (E11.42) Active confirmed Vital Signs Blood pressure diastolic 65 mm Hg 04/04/2025 Height 5 ft in 04/04/2025 Blood pressure systolic 128 mm Hg 04/04/2025 Weight 198 lbs 04/04/2025 BMI 38.67 kg/m2 04/04/2025 Procedures Procedure Date Ordered Date Performed Result Body Sit e 71247-FXYJGVO NAIL, 6 OR MORE 08/19/2024 N/A 96964-ERVT SKIN LESIONS, OVER 4 08/19/2024 N/A 81332-WASLHXR NAIL, 6 OR MORE 11/15/2024 N/A 92076-LLGL SKIN LESIONS, OVER 4 11/15/2024 N/A 90104-EMUSFIB NAIL, 6 OR MORE 04/04/2025 N/A 01236-KNGJ SKIN LESIONS, OVER 4 04/04/2025 N/A Encounters Encounter Location Date Provider Diagnosis [facility] [place] [address] [place] [address] 08/19/2024 Nik Hernandez Type 2 diabetes mellitus with diabetic polyneuropathy E11.42 ; Tinea unguium B35.1 ; Other hammer toe(s) (acquired), right foot M20.41 and Other hammer toe(s) (acquired), left foot M20.[address] [address] 11/15/2024 Nikelbert Hernandez Type 2 diabetes mellitus with diabetic polyneuropathy E11.42 and Tinea unguium B35.[address] [address] 04/04/2025 Nik Hernandez Type 2 diabetes mellitus with diabetic polyneuropathy E11.42 ; Tinea unguium B35.1 ; Other hammer toe(s) (acquired), right foot M20.41 and Other hammer toe(s) (acquired), left foot M20.[address] [address] 04/29/2024 Nik Hernandez [address] [address] 11/14/2024 Nik David [address] [address] 11/15/2024 Nik Hernandez Assessments Encounter Date Diagnosis (ICD Code) Assessment Notes Treatment Notes Treatment Clinical Notes Section Notes 08/19/2024 Type 2 diabetes mellitus with diabetic polyneuropathy (ICD-10 - E11.42) 08/19/2024 Tinea unguium (ICD-10 - B35.1) 11/15/2024 Type 2 diabetes mellitus with diabetic polyneuropathy (ICD-10 - E11.42) 11/15/2024 Tinea unguium (ICD-10 - B35.1) 04/04/2025 Type 2 diabetes mellitus with diabetic polyneuropathy (ICD-10 - E11.42) 04/04/2025 Tinea unguium (ICD-10 - B35.1) 04/04/2025 Other hammer toe(s) (acquired), right foot (ICD-10 - M20.41) Patient Educated with: DIABETIC FOOT CARE INSTRUCTIONS. pdf (DIABETIC FOOT CARE INSTRUCTIONS. pdf) 08/19/2024 Other hammer toe(s) (acquired), right foot (ICD-10 - M20.41) Response to treatment,Impro vement 08/19/2024 Other hammer toe(s) (acquired), left foot (ICD-10 - M20.42) Response to treatment,Impro vement 04/04/2025 Other hammer toe(s) (acquired), left foot (ICD-10 - M20.42) Plan Of Treatment Pending Test Test Name Order Date 89640-UIFCRFW NAIL, 6 OR MORE 05/11/2020 03967-XGUEKEL NAIL, 6 OR MORE 09/21/2020 89541-ZXKXVMC NAIL, 6 OR MORE 12/21/2020 15253-QPQSXGU NAIL, 6 OR MORE 05/17/2021 82211-TWDDJPJ NAIL, 6 OR MORE 08/23/2021 94883-ISPHDTB NAIL, 6 OR MORE 01/28/2022 52833-PSUNBMY NAIL, 6 OR MORE 03/01/2024 58091-HLPKGIP NAIL, 6 OR MORE 08/19/2024 86734-URYAHNL NAIL, 6 OR MORE 11/15/2024 05627-TKVCGKD NAIL, 6 OR MORE 04/04/2025 80608-LVKK SKIN LESIONS, OVER 4 04/04/20 25 48126-HOKJ SKIN LESIONS, OVER 4 11/16/19 25 18999-RDER SKIN LESIONS, OVER 4 08/19/19 25 70287-YQAC SKIN LESIONS, OVER 4 03/01/20 24 Next Appt Details Provider Name:Nik Hernandez , 08/01/2025 09:00:00 AM, [address], [place], [address], Insurance Providers Payer Name Payer Address Payer Phone Subscriber Number Group Number Insured Name Patient Relationship to Insured Coverage Start Date Coverage End Date [facility] [employer] Claims [address] [place] [id number] Mine Peacock Self - patient is the insured Medical (General) History Medical History History ICD Code Lung disease COPD CAD Depression Restless Leg type II diabetes Surgical History Surgery Date(Month/Year) teeth extraction Surgery 2019 Left Knee Replacement Right ankle ORIF 2023 Hospitalization History Reason Date(Month/Year) [facility]- fell broke her Right ankle 03/2024 [facility] fell about a week 01/2022 [facility] - pneumonia/ high sugars 15 days
--- OUTSIDE RECORDS SUMMARY | 2025-04-18 09:53 | XMS_ITS ---
Author Name Vicente Zhao Address [address] [place] [address] Phone [phone] Organization [facility] Care Team Providers Care Histotechnologist Supervisor Name Role Phone Cristin Ogden Unavailable [phone] Reason for Referral Not Available Allergies, adverse [...] Data Available BD UF MINI PEN NEEDLE [id number] USE TO ADM INISTER INSULIN TWICE DAILY [...] Data Available BD UF MINI PEN NEEDLE [id number] USE TO ADM INISTER INSULIN TWICE DAILY [...] Female Functional Status Functional Category Effective Dates ANIMAL WARDEN assists with cooking, cl eaning, laundry, showering and dressing. Pt reports using assistive device of: 2023-03-30 Mental Status Status Date AOx 2023-03-30 Assessments Not Available Plan of Care Not Available
--- OUTSIDE RECORDS SUMMARY | 2025-04-18 09:53 | XMS_ITS | Clinical Summary ---
Author Organization [address] [facility] Address [address] [place] [address] Phone Care Team Providers Care Instructional Material Director Name Role Phone Delaney Sherman MD Primary Care Provider Social History Tobacco Use Types Packs/Day Years Used Date Smoking Tobacco: Never Assessed Comments Unknown Sex and Gender Information Value Date Recorded Sex Assigned at Not on file Legal Sex Female 7:51 AM EST Gender Identity Not on file Sexual Orientation Not on file Plan of Treatment Health Maintenance Due Date Last Done Comments Colorectal Cancer Screening: Colonoscopy 1950 Diabetes: Annual GFR (Glomerular Filtration Rate) 1950 Diabetes: Annual Foot Exam 01/11/1960 Diabetes: Annual Retina Eye Exam 01/11/1960 DTaP,Tdap,and Td Vaccines (2 - Td or Tdap) 07/13/2004 07/13/1994 Zoster Vaccines (2 of 3) 03/16/2012 01/20/2012 Pneumococcal Vaccine: 50+ Years (2 of 2 - PPSV23, PCV20, or PCV21) 10/07/2015 08/12/2015 Cholesterol Screening (Lipid Panel) 06/14/2024 Diabetes: Annual Urine Albumin-Creatinine Ratio (uACR) 06/14/2024 Falls Risk Assessment 06/14/2024 Hepatitis C Screening 06/14/2024 Hypertension/CHF/CAD Annual BMP Blood Test 06/14/2024 Medicare Annual Wellness Visit 06/14/2024 Osteoporosis Screening (Bone Density Screening) 06/14/2024 Social Influencers of Health Screening 06/14/2024 Depression Screening 07/13/2024 Diabetes: Blood Sugar Contro l Test (HGBA1C) 12/13/2024 06/14/2024 RSV Immunization Adult Patients (1 - 1-dose 75+ series) 2025 COVID-19 Vaccine (2024-2 6 season) 2025 05/10/2021, 09/28/2020, 09/11/2020 Influenza [...] HEMOGLOBIN A1C Routine 06/14/2024 4:50 AM EST intermodal customer service (current) use of insulin ([facility]) Type 2 diabetes mellitus without complications ([facility]) from Last 3 Months or [...] MD LAB BLOOD ORDERABLES Final Resu lt [facility] [place] ([facility] [address] [place] [address], from Last 3 Months or Most Recently Relevant to Health Maintenance Insurance [employer] MEDICARE Member Subscriber Plan / Payer (Ef fective 2023-Present) Name:Mine Peacock Relation to Subscriber:Self Name:Mine Peacock Payer ID:[id number] Group ID:[id number] Type:Not on file Address: [place] [address] [place] [id number] Care Teams Instructional Material Director Relationship Specialty Start Date End Date Delaney Sherman MD [address] [place] [address] PCP - General Hospitalist Medicine 06/14/24
== END 2025-04-18 09:46 | disposition home or self-care (01) ==
PROVIDERS: PCP Internal Medicine; Visit Provider Physician Assistant
DX: Z13.9 Encounter for screening, unspecified (principal); N39.0 Urinary tract infection, site not specified

== ENCOUNTER 2025-04-18 09:01 | Outpatient (REF) | payer OTHER, SELFPAY ==
[2025-04-18 14:44] LABS: Microalbum/Creatinine Ratio Ur 39.6 ug/mg cr (<30)
== END 2025-04-18 09:02 | disposition home or self-care (01) ==
LOC: HO.LAB 09:01
PROVIDERS: PCP Internal Medicine; Visit Provider Physician Assistant
DX: N39.0 Urinary tract infection, site not specified (principal); K21.9 Gastro-esophageal reflux disease without esophagitis; E10.40 Type 1 diabetes mellitus with diabetic neuropathy, unspecified; E10.22 Type 1 diabetes mellitus with diabetic chronic kidney disease; G25.81 Restless legs syndrome; F41.1 Generalized anxiety disorder; N39.46 Mixed incontinence; J98.4 Other disorders of lung; J30.9 Allergic rhinitis, unspecified; R79.89 Other specified abnormal findings of blood chemistry; N18.31 Chronic kidney disease, stage 3a; D63.1 Anemia in chronic kidney disease; E78.9 Disorder of lipoprotein metabolism, unspecified; Z91.09 Other allergy status, other than to drugs and biological substances; Z99.81 Dependence on supplemental oxygen; Z79.4 Long term (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 insulin; Z86.19 Personal history of other infectious and parasitic diseases
CPT/HCPCS: 81003; 82043; 82570; 87086; 87088; 87186; 99212

== ENCOUNTER 2025-05-08 07:38 | Inpatient (IN) | payer OTHER, SELFPAY ==
--- OUTSIDE RECORDS SUMMARY | 2024-05-06 05:00 | XMS_ITS ---
Author Organization [facility] Address [address] [place] [address] Care Team Providers Care Document Analyst Name Role Phone Chris BROWNE, Shelbi Primary Care Provider UnavailNik Haynes Unavailable [phone] Encounters Encounter Location Date Provider Diagnosis [address] [address] 05/06/2024 Nik Hernandez Plan Of Treatment Next Appt Details Provider Name:Nik Hernandez , 08/01/2025 09:00:00 AM, [address] [place] [address], [phone], Progress Notes * MENDYMaryeDOB:1950 ( 75 yo F)Acc No.[id number]:05/06/2024 Progress Note Patient: Mine MIMS Provider: Nicolás Hernandez DPM :1950 A ge:74 Y S ex:Female Date:05/06/2024 Address:[address] [place] [address] Pcp:Shelbi Perez MD Subjective: * Chief Complaints: [...] Date: 1 Generated for Judah locke/Wendy/Kyle on: 07:53 AM EDT
--- OUTSIDE RECORDS SUMMARY | 2025-02-21 05:30 | XMS_ITS ---
Author Organization [facility] Address [address] [place] [address] Care Team Providers Care Narrow Fabric Calenderer Name Role Phone Chris BROWNE, Shelbi Primary Care Provider Unavailabl Nik Shankar Unavailable [phone] Lopez Encounters Encounter Location Date Provider Diagnosis [address] [address] 02/21/2025 Nik Hernandez Plan Of Treatment Next Appt Details Provider Name:Nik Hernandez , 08/01/2025 09:00:00 AM, [address] [place] [address], [phone], Progress Notes * Mary PEACOCKeDOB:1950 ( 75 yo F)Acc No.[id number]:02/21/2025 Progress Note Patient: Matthew MIMSlene Provider: Nicolás Hernandez DPM :1950 A ge:75 Y S ex:Female Date:02/21/2025 Address:[address] [place] [address] Pcp:Shelbi Perez MD Subjective: * Chief Complaints: [...] 0 02/21/2025 Generated for Judah Owens on: 07:53 AM EDT
--- OUTSIDE RECORDS SUMMARY | 2025-04-11 08:00 | XMS_ITS ---
Author Organization [facility] lianc Address [address] [place] [address] Care Team Providers Care Inspector Health Care Facilities Name Role Phone Shelbi Perez Primary Care Provider Rajwinder Sevilla Unavailable [phone] REASON FOR VISIT Chronic Care F/U Encounters Encounter Location Date Provider Diagnosis [address] [address] 04/11/2025 Rajwinder Johns Plan Of Treatment No Information Progress Notes * Mine PEACOCK RDOB:1950 (75 yo F)Acc No.[id number]:04/11/2025 BLOCKED FROM THE PATIENT Patient: Rob RIVERAMine Sarah External Provider: [place] Diana :1950 A ge:75 Y S ex:Female Date:04/11/2025 Address:[address] [place] [address] [address], [place], [id number] Pcp:Shelbi Perez Subjective: * Chief Complaints: * [...] Diana Date: 0 04/11/2025 Generated for Karli chucky/Wendy/eTransmitting on: 07:54 AM EDT
[2025-05-08] VITALS (8 sets, daily range): BP systolic 108–118; BP diastolic 34–63; PULSE 81–90; RESP 16–18; TEMP 36.6–36.9; O2SAT 88–99; BMI 41.2
--- NOTE | ~2025-05-08 | XR_ITS ---
CLINICAL HISTORY: rule out constipation 1 view abdomen Comparison: None provided Findings: No significant bowel distention demonstrated. No significant increased stool noted. No free air. No abnormal calcification. No acute bony abnormalities. Impression: No significant abnormalities. This document has been electronically signed by: Javon Max MD on 05/10/2025 19:45:57
--- NOTE | ~2025-05-08 | CT_ITS ---
EXAMINATION: CT ABDOMEN AND PELVIS WITHOUT CONTRAST CLINICAL INFORMATION: Abdominal pain. Rectal bleeding. COMPARISON: April 04, 2024. TECHNIQUE: Multidetector volumetric imaging was performed from the superior aspect of the liver through the pubic symphysis. Sagittal and coronal reformatted images were obtained on the technologist's workstation. This CT examination was performed using dose optimization techniques as appropriate, variously including the following: *Automated exposure control *Adjustment of mA and/or kV according to patient size (this includes techniques or standardized protocols for targeted exams where dose is matched to indication/reason for exam; i.e. extremities or head) *Use of iterative reconstruction technique. DLP: 1054 mGy-cm FINDINGS: Inadequate evaluation of the intra-abdominal solid organs and vascular structures due to lack of IV contrast. Numerous diverticula in the left hemicolon with a segmental area of intestinal wall thickening and pericolonic edema pattern extending from the splenic colonic flexure to the distal descending colon. No intestinal obstruction pattern. No pneumatosis intestinalis. No pneumoperitoneum. No ascites. No gross fluid collections in the peritoneal cavity. Abundant stool large intestine. Nonobstructing nephrolithiasis, left kidney. No hydronephrosis in either kidney. Calcified plaques abdominal aorta wall and iliac arteries without gross aneurysm. No acute airspace disease. Atelectasis lung bases. Liver measures 17 cm. Spleen measures 8 cm. No nodular lesions in the adrenal glands. Absent gallbladder. Common bile duct measures 8 mm. Sutures at the rectosigmoid colon junction. Small fat-containing periumbilical hernia. Multilevel thoracolumbar spondylosis. No gross acute fracture. Degenerative changes in the sacroiliac joints, coxofemoral joints and symphysis pubis. Small hiatal hernia. CT/CT abdomen pelvis wo IV con IMPRESSION: Concerning acute colitis, left hemicolon. Probably related to diverticulitis although ischemic colitis cannot be entirely excluded. Fleischner guidelines were followed. Electronically signed by: Thomas Serna MD 05/08/2025 10:44 AM EDT
--- NOTE | ~2025-05-08 | US_ITS ---
EXAMINATION: US RETROPERITONEUM LIMITED HISTORY: AGUSTIN/rule out hydronephrosis TECHNIQUE: Real-time grayscale ultrasound imaging of the kidneys was performed and images were reviewed. COMPARISON: Correlation is made with an unenhanced CT of the abdomen dated 05/08/2025. FINDINGS: The examination is limited by patient body habitus. Right kidney: The right kidney measures 7.4 x 3.7 x 2.8 cm. Renal parenchymal echotexture and thickness are normal. There are no masses. There is no hydronephrosis or renal calculi. Left Kidney: The left kidney measures 8.1 x 4.1 x 3.4 cm. Renal parenchymal echotexture and thickness are normal. There are no masses. There is no hydronephrosis or renal calculi. The urinary bladder is unremarkable. Bilateral ureteral jets are identified. US/US retroperitoneal limited IMPRESSION: Unremarkable retroperitoneal ultrasound. No evidence of hydronephrosis. Electronically signed by: Ellis Ozuna MD 05/10/2025 12:12 PM EDT
--- OUTSIDE RECORDS SUMMARY | 2025-05-08 07:53 | XMS_ITS | Encounter Summary ---
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 back pain also. , roxy entReports : Cough, fever greater than 2 days ; Lower extremity swelling; History of asthma, increased use of inhaler; COPD; Sputum increase ; Cough; Shortness of breath with exertion; Painwith inspiration , denies :[ Increased work of breathing/labored with or without fever , Unable to speak in full sentences without distress , Discolorationof skin -cyanosis , Needs to sleep sitting up, can t catch breath , Shortnessof breath in setting of confusion , COVID Exposure ], chiefComplaints :"Breathing Problems, Back Pain , pmh : COPD/Asthma, Diabetes Mellitus Type 2&qu ot;, allergies : , otherAllergies : Yasmine Drake ssment : , visitOutcome : , additionalComments :"75 y.o female complains of Breathing Problems, Back Pain.\nReporting back pain for about a week but also hx of chronic back pain which she just takes Tylenol. c/o coughing/congestion x 3 days, having a hard time bringing up her sputum. Member sitting up in her chair to help with her breathing and reporting SOBE. No fevers reported. Member is using her inhalers but not helping today. \nCurrently being treated for a UTI- \nChronic back pain- takes Tylenol PRN. \nNo blood thinner use. \n noted urgent care visit from 04/08 which she was prescribed Prednisone\nI provided information on the mobile health provider response time and advised the patient and/or caregiver to monitor reported signs and symptoms. I discussed the warning signs of when to seek emergency care. } Encountered patient seated upright and conscious with family present. Patient reports history of COPD and is currently experiencing congestion, shortness of breath and a cough that is not productive but ???I can feel something in there and I can???t get it out.?? Patient denies chest pain and fevers. POCT COVID and flu swabs performed, both resulted negative; [facility] notified. Skin warm, dry and of appropriate color for ethnicity. Head and neck, free of trauma and edema. -JVD. Breath sounds diminished in all rivers but exhibit expiratory wheezes in the bases bilaterally. Abdomen is soft, non-tender and non-distended. Extremities free of trauma and edema. [facility] contacted: 1 duoneb treatment administered. 40mg PO prednisone administered. During exam it wasnoted that patient was treated for similar symptoms on 04/08/25 and received a prescription for prednisone, however was unable to fulfill it and has gone untreated since. Medications administered after ???rights?? were reconciled with patient. [facility] states they will send a prescription for further treatment to a pharmacy of patients choice. Patient was encouraged to monitor herself for worsening symptoms, chest pain, fevers or changes in mental status and was urged to seek further medical attention, including 911, if said symptoms were to develop. Patient verbalizes understanding of the plan and states she is comfortable remaining home today and has an appointment with her plate developer on 04/28/25. IV_(FLUIDS_AND/OR_MEDICATION), MEDICATION_IM, ORAL_MEDICATION, EKG, POC_FLU_STREP, COVID_TEST Written by Medical instED on 2025-04-20
--- OUTSIDE RECORDS SUMMARY | 2025-05-08 07:54 | XMS_ITS | Patient Health Record ---
Author Organization [facility] Address [address] [place] [address] Care Team Providers Care Strip Cutter Name Role Phone José Manuel [facility] MD Primary Care Provider UnavailEllis Bernabe Unavailable [phone] Wallace Graham MD Unavailable Unavailable Allergies Allergen (clinical drug ingredient) Drug/Non Drug Allergy documented on EMR Reaction Allergy Type Onset Date Status trimethobenzamide Tigan Unknown Drug Allergy Active Reason For Referral No Information Problems Problem Type SNOMED Code ICD Code Onset Dates Problem Status W/U Status Risk Notes Problem Ulcerative colitis (06795221) Ulcerative colitis (K51.90) Active confirmed Plan Of Treatment No Information Insurance Providers Payer Name Payer Address Payer Phone Subscriber Number Group Number Insured Name Patient Relationship to Insured Coverage Start Date Coverage End Date MEDICARE OF [place] [address] [place] [id number] [phone] [id number] DESMOND BROOKE Self - patient is the insured MEDICAID OF [facility] [address] [place] [address] [id number] DESMOND BROOKE Self - patient is the insured Medical (General) History Medical History History ICD Code colonoscopy 11-09-2006 gerd Surgical History Surgery Date(Month/Year) cholecystectomy hysterectomy with oophorectomy D&C and tubal ligation
--- OUTSIDE RECORDS SUMMARY | 2025-05-08 07:54 | XMS_ITS ---
Author Name Vicente Zhao Address [address] [place] [address] Phone [phone] Organization [facility] Care Team Providers Care Sanitation Technician Name Role Phone Cristin Ogden Unavailable [phone] Reason for Referral Not Available Allergies, adverse [...] Data Available BD UF MINI PEN NEEDLE [id number] USE TO ADM INISTER INSULIN TWICE DAILY [...] Data Available BD UF MINI PEN NEEDLE 8YEV74M USE TO ADM INISTER INSULIN TWICE DAILY [...] Female Functional Status Functional Category Effective Dates CONFECTIONERY COOKER assists with cooking, cl eaning, laundry, showering and dressing. Pt reports using assistive device of: 2023-03-30 Mental Status Status Date AOx 2023-03-30 Assessments Not Available Plan of Care Not Available
--- OUTSIDE RECORDS SUMMARY | 2025-05-08 07:54 | XMS_ITS | Patient Health Record ---
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 Name Role Phone Shelbi Perez Primary Care Provider Unavailabl e Clinical, Operations Unavailable Unavailable Alessia Garza Unavailable [phone] Rajwinder Johns Unavailable [phone] Opal Gustafson Unavailable [phone] Allergies Allergen (clinical drug ingredient) Drug/Non Drug Allergy documented on EMR Reaction Allergy Type Onset Date Status Cloth tape (uncoded) skin redness/pain Allergy Active Zofran vomiting Drug Allergy Active Reason For Referral No Information Medications Medication SIG (Take, Route, Frequency, Duration) Notes Start Date End Date Status Albuterol Sulfate HFA 108 (90 Base) MCG/ACT 1 puff as needed Inhalation every 4 hrs PRN Active Gabapentin 300 MG as directed Orally once a day at HS Active Albuterol Sulfate (2.5 MG/3ML) 0.083% 3 mL as needed Inhalation every 6 hrs PRN only Active [facility] Fluticasone Propionate 50 MCG/ACT 1 spray in each nostril Nasally Twice a day; Duration: 30 days Active Pramipexole Dihydrochloride 0.5 MG 3 tablets Orally at bedtime Active Ipratropium-Albuterol 0.5-2.5 (3) MG/3ML 3 mL as needed Inhalation every 6 hrs Member reports not taking. Not-Taking amLODIPine Besylate 5 MG 1 tablet Orally Once a day Member reports not taking. Not-Taking Multivitamin - 1 tablet Orally Once a day Active rOPINIRole HCl 2 MG 1 tablet Orally Twice a day Not-Taking Atorvastatin Calcium 80 MG 1 tablet Orally Once a day Active hydrOXYzine HCl 25 MG as directed Orally twice a day PRN anxiety Active Oxygen Concentrator 2-3 liters 2lPM as needed to maintain 2 sat 88-92% continuous 2L PRN Active Tylenol Extra Strength 500 MG 1 tablet as needed Orally every 6 hrs OTC Active Montelukast Sodium 10 MG 1 tablet Orally Once a day Active buPROPion HCl ER (SR) 150 MG 1 tablet in the morning Orally Once a day Active Vitamin D3 [...] 30 days Member reports not taking. Not-Taking traZODone HCl 150 MG 1 tablet at bedtime Orally Once a day Active Budesonide 2 MG/10ML 10 mL Orally Twice a day Member reports not taking. Not-Taking Dulaglutide 3 MG/0.5ML as directed Subcutaneous weekly Active Lantus SoloStar 100 UNIT/ML 20 units Subcutaneous daily; Duration: 30 days Active Insulin Aspart FlexPen 100 UNIT/ML as directed Subcutaneous Sliding scale TID Active Citalopram Hydrobromide 10 MG 1 tablet Orally Once a day Active Problems Problem Type SNOMED Code ICD Code Onset Dates Problem Status W/U Status Risk Notes Problem Vitamin D deficiency (83636602) Vitamin D deficiency, unspecified (E55.9) Active confirmed Problem Dysuria (36248711) Dysuria (R30.0) Inactive confirmed Problem Type II diabetes mellitus without complication (748085551) Diabetes (E11.9) Inactive confirmed Problem Tinea unguium (625975529) Tinea unguium (B35.1) Active confirmed Problem Obstructive sleep apnea syndrome (57703800) ALDO on CPAP (G47.33) Active confirmed Problem Chest pain (31767441) Chest pain (R07.9) Problem resolved confirmed Problem Heart failure (64034270) Heart failure, unspecified (I50.9) Inactive confirmed Problem History of fall (602346181) History of falling (Z91.81) Active confirmed Problem Hypertension (14055593) HTN (hypertension) (I10) Inactive confirmed Problem Acute exacerbation of chronic obstructive airways disease (884933644) COPD exacerbation (J44.1) Problem resolved confirmed Problem COPD - Chronic obstructive pulmonary disease (35888857) COPD (chronic obstructive pulmonary disease) (J44.9) Active confirmed Problem Dyspnea (537589825) Dyspnea (R06.00) Inactive confirmed Problem Tachycardia (1133140) Tachycardia, unspecified (R00.0) Active confirmed Problem Mixed incontinence (341300319) Mixed incontinence (N39.46) Active confirmed Problem Generalized anxiety disorder (82527226) RACHNA (generalized anxiety disorder) (F41.1) Active confirmed Problem Polyneuropathy due to type 2 diabetes mellitus (892815080) Type 2 diabetes mellitus with diabetic polyneuropathy (E11.42) Active confirmed Problem Chronic kidney disease (438384209) CKD (chronic kidney disease) (N18.9) Inactive confirmed Problem Polyneuropathy (15463814) Polyneuropathy (G62.9) Inactive confirmed Problem Moderate recurrent major depression (89756284) Major depressive disorder, recurrent episode, moderate (F33.1) Active confirmed Problem Polymyalgia rheumatica (29506222) Polymyalgia rheumatica (M35.3) Active confirmed Problem Restless legs (03393695) Restless legs syndrome (RLS) (G25.81) Active confirmed Problem Dependence on supplemental oxygen (980488598993) 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) Active confirmed Problem Dementia (99568183) Dementia, unspecified, without behavioral disturbance (F03.90) Active confirmed Problem Chronic respiratory failure (31685088) Chronic respiratory failure with hypoxia (J96.11) Active confirmed Problem Chronic kidney disease stage 4 (983723359) Chronic kidney disease, stage 4 (severe) (N18.4) Active confirmed Problem Urinary tract infectious disease (95381993) Recurrent UTI (urinary tract infection) (N39.0) Active confirmed Problem Osteoarthritis of knee (493995362) Unilateral primary osteoarthritis, left knee (M17.12) Active confirmed Problem Extrapyramidal disorder (48313215) Extrapyramidal disorder (G25.9) Active confirmed Problem Chronic dacryocystitis (75784782) 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) Active confirmed Problem Panlobular emphysema (1997972) Panlobular emphysema (J43.1) Active confirmed Problem Acquired hammer toe of right foot (3378506630710423 ) Other hammer toe(s) (acquired), right foot (M20.41) Active confirmed Problem Acquired hammer toe of left foot (3528655441101044 ) Other hammer toe(s) (acquired), left foot (M20.42) Active confirmed Problem Abnormal gait (00056372) Other abnormalities of gait and mobility (R26.89) Active confirmed Problem Unspecified symptoms and signs involving the genitourinary system (R39.9) Active confirmed Problem Displaced trimalleolar fracture of right lower leg, subsequent encounter for closed fracture with routine healing (S82.851D) Active confirmed Problem Spondylosis without myelopathy (78076960) Arthritis, low back (M47.819) Active confirmed Problem Diarrhea (69467223) Diarrhea, unspecified (R19.7) Active confirmed Problem Chronic pain (20506744) Other chronic pain (G89.29) Active confirmed Problem Long-term current use of insulin (511228394) long term care pharmacist (current) use of insulin (Z79.4) Active confirmed Problem Chronic diastolic heart failure (593920865) Chronic diastolic (congestive) heart failure (I50.32) Active confirmed Problem 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 failure (78603597509709) 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 kidney disease, or unspecified chronic kidney disease (I13.0) Active confirmed Problem Diabetic peripheral neuropathy associated with type 2 diabetes mellitus (1899862189470) Type 2 diabetes mellitus with diabetic neuropathy, unspecified (E11.40) Active confirmed Problem Morbid obesity (disorder) (404345190) Morbid (severe) obesity due to excess calories (E66.01) Active confirmed Problem Abrasion of skin (38533258) Skin abrasion (T14.8XXA) Active confirmed Problem Hyperglycemia due to type 2 diabetes mellitus (799754345293525) Uncontrolled type 2 diabetes mellitus with hyperglycemia (E11.65) Active confirmed Problem Disease caused by Severe acute respiratory syndrome coronavirus 2 (disorder) (313015099) COVID-19 virus infection (U07.1) Problem resolved confirmed Problem COVID-19 (731632142) COVID-19 (U07.1) Inactive confirmed Problem Chronic kidney disease stage 3A (543328978) Stage 3a chronic kidney disease (N18.31) Inactive confirmed Problem Body mass index 40+ - severely obese (323542445) Body mass index [BMI] 40.0-44.9, adult (Z68.41) Active confirmed Problem Diabetic on non-insulin injectable medication (finding) (774654002) Long-term current use of injectable noninsulin antidiabetic medication (Z79.85) Active confirmed Problem Acquired nasolacrimal duct stenosis (254153833) 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) Inactive confirmed Problem Late effect of fracture of lower extremities (23051935) Closed displaced trimalleolar fracture of right ankle, sequela (S82.851S) Inactive confirmed Vital Signs Heart Rate 68 /min 04/25/2025 Temperature 97.9 degrees Fahrenheit 04/25/2025 Respiratory Rate 18 /min 04/25/2025 Height-cm 152.4 cm 04/25/2025 Oximetry 97 % 04/25/2025 Blood pressure diastolic 64 mm Hg 04/25/2025 Weight-kg 97.07 kg 04/17/2025 Height 60 in 04/25/2025 Blood pressure systolic 130 mm Hg 04/25/2025 Weight 214 lbs 04/17/2025 BMI 41.79 kg/m2 04/17/2025 Encounters Encounter Location Date Provider Diagnosis [address] [address] 06/06/2024 Rajwinder Johns Displaced trimalleolar fracture of right lower leg, subsequent encounter for closed fracture with routine healing S82.851D [facility] [address] [place] [address] 06/24/2024 Rajwinder Johns 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 kidney disease, or unspecified chronic kidney disease I13.0 ; Chronic diastolic (congestive) heart failure I50.32 ; Stage 3a chronic kidney disease N18.31 ; COPD (chronic obstructive pulmonary disease) J44.9 ; Type 2 diabetes mellitus with diabetic neuropathy, unspecified E11.40 ; senior care (current) use of insulin Z79.4 ; Major [...] dependent Z99.81 and Other chronic pain G89.[address] [place] [address] 06/30/2024 Rajwinder Johns COPD (chronic obstructive pulmonary disease) J44.9 and RACHNA (generalized anxiety disorder) F41.[address] [place] [address] 07/05/2024 Rajwinder Johns COPD (chronic obstructive pulmonary disease) J44.9 ; RACHNA (generalized anxiety disorder) F41.1 and 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 [place] [address] 07/07/2024 Rajwinder Johns 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 kidney disease, or unspecified chronic kidney disease I13.0 ; Chronic diastolic (congestive) heart failure I50.32 ; Stage 3a chronic kidney disease N18.31 ; COPD (chronic obstructive pulmonary disease) J44.9 ; Type 2 diabetes mellitus with diabetic neuropathy, unspecified E11.40 ; long term care pharmacist (current) use of insulin Z79.4 ; Major [...] dependent Z99.81 and Other chronic pain G89.[address] [address] 07/15/2024 Rajwinder Johns COPD (chronic obstructive pulmonary disease) J44.9 ; RACHNA (generalized anxiety disorder) F41.1 ; 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 ; Type 2 diabetes mellitus with diabetic neuropathy, unspecified E11.40 ; Uncontrolled type 2 diabetes mellitus with hyperglycemia E11.65 ; Chronic kidney disease, stage 3b N18.32 ; Morbid (severe) obesity due to excess calories E66.01 ; Body mass index [BMI] 40.0-44.9, adult Z68.41 ; long term care pharmacist (current) use of insulin Z79.4 ; Long-term current use of injectable noninsulin antidiabetic medication Z79.85 and 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 kidney disease, or unspecified chronic kidney disease I13.[address] [address] 07/22/2024 Rajwinder Johns COPD (chronic obstructive pulmonary disease) J44.9 ; RACHNA (generalized anxiety disorder) F41.1 ; 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 ; Type 2 diabetes mellitus with diabetic neuropathy, unspecified E11.40 ; Uncontrolled type 2 diabetes mellitus with hyperglycemia E11.65 ; Chronic kidney disease, stage 3b N18.32 ; Morbid (severe) obesity due to excess calories E66.01 ; Body mass index [BMI] 40.0-44.9, adult Z68.41 ; senior care (current) use of insulin Z79.4 ; Long-term current use of injectable noninsulin antidiabetic medication Z79.85 and 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 kidney disease, or unspecified chronic kidney disease I13.[address] [address] 07/28/2024 Rajwinder Johns COPD (chronic obstructive pulmonary disease) J44.9 ; RACHNA (generalized anxiety disorder) F41.1 ; 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 ; Type 2 diabetes mellitus with diabetic neuropathy, unspecified E11.40 ; Uncontrolled type 2 diabetes mellitus with hyperglycemia E11.65 ; Chronic kidney disease, stage 3b N18.32 ; Morbid (severe) obesity due to excess calories E66.01 ; Body mass index [BMI] 40.0-44.9, adult Z68.41 ; senior care (current) use of insulin Z79.4 ; Long-term current use of injectable noninsulin antidiabetic medication Z79.85 and 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 kidney disease, or unspecified chronic kidney disease I13.[address] [address] 08/02/2024 Rajwinder Johns COPD (chronic obstructive pulmonary disease) J44.9 ; RACHNA (generalized anxiety disorder) F41.1 ; 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 ; Type 2 diabetes mellitus with diabetic neuropathy, unspecified E11.40 ; Uncontrolled type 2 diabetes mellitus with hyperglycemia E11.65 ; Chronic kidney disease, stage 3b N18.32 ; Morbid (severe) obesity due to excess calories E66.01 ; Body mass index [BMI] 40.0-44.9, adult Z68.41 ; senior care (current) use of insulin Z79.4 ; Long-term current use of injectable noninsulin antidiabetic medication Z79.85 and 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 kidney disease, or unspecified chronic kidney disease I13.[address] [address] 08/08/2024 Rajwinder Evansard COPD (chronic obstructive pulmonary disease) J44.9 ; RACHNA (generalized anxiety disorder) F41.1 ; 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 ; Type 2 diabetes mellitus with diabetic neuropathy, unspecified E11.40 ; Uncontrolled type 2 diabetes mellitus with hyperglycemia E11.65 ; Chronic kidney disease, stage 3b N18.32 ; Morbid (severe) obesity due to excess calories E66.01 ; Body mass index [BMI] 40.0-44.9, adult Z68.41 ; senior care (current) use of insulin Z79.4 ; Long-term [...] for closed fracture with routine healing S82.851D [address] [address] 08/16/2024 Rajwinder Nat COPD (chronic obstructive pulmonary disease) J44.9 ; RACHNA (generalized anxiety disorder) F41.1 ; 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 ; Type 2 diabetes mellitus with diabetic neuropathy, unspecified E11.40 ; Uncontrolled type 2 diabetes mellitus with hyperglycemia E11.65 ; Chronic kidney disease, stage 3b N18.32 ; Morbid (severe) obesity due to excess calories E66.01 ; Body mass index [BMI] 40.0-44.9, adult Z68.41 ; senior care (current) use of insulin Z79.4 ; Long-term [...] for closed fracture with routine healing S82.851D [address] [address] 08/23/2024 Rajwinder Nat COPD (chronic obstructive pulmonary disease) J44.9 ; RACHNA (generalized anxiety disorder) F41.1 ; 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 ; Type 2 diabetes mellitus with diabetic neuropathy, unspecified E11.40 ; Uncontrolled type 2 diabetes mellitus with hyperglycemia E11.65 ; Chronic kidney disease, stage 3b N18.32 ; Morbid (severe) obesity due to excess calories E66.01 ; Body mass index [BMI] 40.0-44.9, adult Z68.41 ; senior care (current) use of insulin Z79.4 ; Long-term [...] for closed fracture with routine healing S82.851D [address] [address] 08/30/2024 Rajwinder Johns COPD (chronic obstructive pulmonary disease) J44.9 ; RACHNA (generalized anxiety disorder) F41.1 ; 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 ; Type 2 diabetes mellitus with diabetic neuropathy, unspecified E11.40 ; Uncontrolled type 2 diabetes mellitus with hyperglycemia E11.65 ; Chronic kidney disease, stage 3b N18.32 ; Morbid (severe) obesity due to excess calories E66.01 ; Body mass index [BMI] 40.0-44.9, adult Z68.41 ; senior care (current) use of insulin Z79.4 ; Long-term [...] routine healing S82.851D and Skin abrasion T14.8XXA [address] [place] [address] 09/01/2024 Rajwinder Johns RACHNA (generalized anxiety disorder) F41.1 ; Other chronic pain G89.29 ; Unilateral primary osteoarthritis, left knee M17.12 ; Arthritis, low back M47.819 ; Displaced trimalleolar fracture of right lower leg, subsequent encounter for closed fracture with routine healing S82.851D ; Skin abrasion T14.8XXA and Major depressive disorder, recurrent episode, moderate F33.1 [facility] [address] [place] [address] 09/08/2024 Rajwinder Johns RACHNA (generalized anxiety disorder) F41.1 ; Other chronic pain G89.29 ; Unilateral primary osteoarthritis, left knee M17.12 ; Arthritis, low back M47.819 ; Displaced trimalleolar fracture of right lower leg, subsequent encounter for closed fracture with routine healing S82.851D ; Skin abrasion T14.8XXA and Major depressive disorder, recurrent episode, moderate F33.[address] [place] [address] 09/15/2024 Rajwinder Johns RACHNA (generalized anxiety disorder) [...] disease) J44.9 ; 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 ; long term care pharmacist (current) use of insulin Z79.4 ; Long-term current use of injectable noninsulin antidiabetic medication Z79.85 ; Chronic kidney disease, stage 3b N18.32 and Morbid (severe) obesity due to excess calories E66.[address] [facility] [address] [place] [address] 09/22/2024 Rajwinder Johns RACHNA (generalized anxiety disorder) [...] disease) J44.9 ; 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 ; senior care (current) use of insulin Z79.4 ; Long-term current use of injectable noninsulin antidiabetic medication Z79.85 ; Chronic kidney disease, stage 3b N18.32 and Morbid (severe) obesity due to excess calories E66.[address] [place] [address] 09/29/2024 Rajwinder Johns RACHNA (generalized anxiety disorder) [...] disease) J44.9 ; 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 ; long term care pharmacist (current) use of insulin Z79.4 ; Long-term current use of injectable noninsulin antidiabetic medication Z79.85 ; Chronic kidney disease, stage 3b N18.32 and Morbid (severe) obesity due to excess calories E66.01 [facility] [address] [facility] [place] [address] 10/07/2024 Rajwinder Johns RACHNA (generalized anxiety disorder) [...] disease) J44.9 ; 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 ; long term care pharmacist (current) use of insulin Z79.4 ; Long-term current use of injectable noninsulin antidiabetic medication Z79.85 ; Chronic kidney disease, stage 3b N18.32 and Morbid (severe) obesity due to excess calories E66.[address] [address] 10/14/2024 Rajwinder Johns RACHNA (generalized anxiety disorder) [...] disease) J44.9 ; 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 ; senior care (current) use of insulin Z79.4 ; Long-term current use of injectable noninsulin antidiabetic medication Z79.85 ; Chronic kidney disease, stage 3b N18.32 and Morbid (severe) obesity due to excess calories E66.[address] [address] 10/21/2024 Rajwinder Johns RACHNA (generalized anxiety disorder) [...] disease) J44.9 ; 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 ; long term care pharmacist (current) use of insulin Z79.4 ; Long-term current use of injectable noninsulin antidiabetic medication Z79.85 ; Chronic kidney disease, stage 3b N18.32 and Morbid (severe) obesity due to excess calories E66.[address] [address] 10/27/2024 Rajwinder Johns Arthritis, low back M47.819 [...] 3b N18.32 and Seasonal allergic reaction J30.2 [facility] [address] [place] [address] 10/28/2024 Operations Clinical Type 2 diabetes mellitus [...] closed fracture with routine healing S82.851D ; senior care (current) use of insulin Z79.4 ; Long-term current use of injectable noninsulin antidiabetic medication Z79.85 ; 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 ; Morbid (severe) obesity due to excess calories E66.01 ; Body mass index [BMI] 40.0-44.9, adult Z68.41 ; Skin abrasion T14.8XXA and Seasonal allergic reaction J30.[address] [address] 11/04/2024 Rajwinder Johns Arthritis, low back M47.819 [...] 3b N18.32 and Seasonal allergic reaction J30.[address] [address] 11/14/2024 Rajwinder Johns Arthritis, low back M47.819 ; Type 2 diabetes mellitus with diabetic neuropathy, unspecified E11.40 ; 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 kidney disease, or unspecified chronic kidney disease I13.0 ; COPD (chronic obstructive pulmonary disease) J44.9 ; 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 and Chronic kidney disease, stage 3b N18.[address] [address] 11/28/2024 Rajwinder Johns Arthritis, low back M47.819 ; Type 2 diabetes mellitus with diabetic neuropathy, unspecified E11.40 ; 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 kidney disease, or unspecified chronic kidney disease I13.0 ; COPD (chronic obstructive pulmonary disease) J44.9 ; 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 and Chronic kidney disease, stage 3b N18.[address] [address] 12/02/2024 Rajwinder Johns History of falling Z91.[address] [address] 12/16/2024 Rajwinder Johns Arthritis, low back M47.819 ; Type 2 diabetes mellitus with diabetic neuropathy, unspecified E11.40 ; 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 kidney disease, or unspecified chronic kidney disease I13.0 ; COPD (chronic obstructive pulmonary disease) J44.9 ; 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 and Chronic kidney disease, stage 3b N18.[address] [address] 12/27/2024 Rajwinder Johns COPD (chronic obstructive pulmonary disease) J44.9 ; Recurrent UTI (urinary tract infection) N39.0 ; Type 2 diabetes mellitus with diabetic neuropathy, unspecified E11.40 ; Uncontrolled type 2 diabetes mellitus with hyperglycemia E11.65 ; Chronic respiratory failure with hypoxia J96.11 ; long term care pharmacist (current) use of insulin Z79.4 ; Long-term current use of injectable noninsulin antidiabetic medication Z79.85 and 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 [address] 2025 Rajwinder Johns COPD (chronic obstructive pulmonary disease) J44.9 ; Recurrent UTI (urinary tract infection) N39.0 ; Type 2 diabetes mellitus with diabetic neuropathy, unspecified E11.40 ; Uncontrolled type 2 diabetes mellitus with hyperglycemia E11.65 ; Chronic respiratory failure with hypoxia J96.11 ; long term care pharmacist (current) use of insulin Z79.4 ; Long-term current use of injectable noninsulin antidiabetic medication Z79.85 ; 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 ; 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 kidney disease, or unspecified chronic kidney disease I13.0 ; Chronic kidney disease, stage 3b N18.32 ; Vitamin D deficiency, unspecified E55.9 and Mixed incontinence N39.[address] [address] 01/27/2025 Rajwinder Johns COPD (chronic obstructive pulmonary disease) J44.9 ; Recurrent UTI (urinary tract infection) N39.0 ; Type 2 diabetes mellitus with diabetic neuropathy, unspecified E11.40 ; Uncontrolled type 2 diabetes mellitus with hyperglycemia E11.65 ; Chronic respiratory failure with hypoxia J96.11 ; senior care (current) use of insulin Z79.4 ; Long-term current use of injectable noninsulin antidiabetic medication Z79.85 ; 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 ; 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 kidney disease, or unspecified chronic kidney disease I13.0 ; Mixed incontinence N39.46 and Chronic kidney disease, stage 4 (severe) N18.[address] [address] 01/30/2025 Rajwinder Nat COPD (chronic obstructive pulmonary disease) J44.9 ; Recurrent UTI (urinary tract infection) N39.0 ; Type 2 diabetes mellitus with diabetic neuropathy, unspecified E11.40 ; Uncontrolled type 2 diabetes mellitus with hyperglycemia E11.65 ; Chronic respiratory failure with hypoxia J96.11 ; senior care (current) use of insulin Z79.4 ; Long-term current use of injectable noninsulin antidiabetic medication Z79.85 ; 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 ; 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 kidney disease, or unspecified chronic kidney disease I13.0 ; Mixed incontinence N39.46 and Chronic kidney disease, stage 4 (severe) N18.[address] [address] 02/03/2025 Rajwinder Nat Diarrhea, unspecifie d R19.[address] [address] 02/14/2025 Rajwinder Johns COPD (chronic obstructive pulmonary disease) J44.9 ; Type 2 diabetes mellitus with diabetic neuropathy, unspecified E11.40 ; Uncontrolled type 2 diabetes mellitus with hyperglycemia E11.65 ; Chronic respiratory failure with hypoxia J96.11 ; long term care pharmacist (current) use of insulin Z79.4 ; Long-term current use of injectable noninsulin antidiabetic medication Z79.85 ; 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 ; 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 kidney disease, or unspecified chronic kidney disease I13.0 and Chronic kidney disease, stage 4 (severe) N18.[address] [address] 02/24/2025 Rajwinder Johns COPD (chronic obstructive pulmonary disease) J44.9 ; Type 2 diabetes mellitus with diabetic neuropathy, unspecified E11.40 ; Uncontrolled type 2 diabetes mellitus with hyperglycemia E11.65 ; Chronic respiratory failure with hypoxia J96.11 ; senior care (current) use of insulin Z79.4 ; Long-term current use of injectable noninsulin antidiabetic medication Z79.85 ; 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 ; 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 kidney disease, or unspecified chronic kidney disease I13.0 and Chronic kidney disease, stage 4 (severe) N18.[address] [address] 03/09/2025 Rajwinder Nat COPD (chronic obstructive pulmonary disease) J44.9 ; Type 2 diabetes mellitus with diabetic neuropathy, unspecified E11.40 ; Uncontrolled type 2 diabetes mellitus with hyperglycemia E11.65 ; Chronic respiratory failure with hypoxia J96.11 ; senior care (current) use of insulin Z79.4 ; Long-term current use of injectable noninsulin antidiabetic medication Z79.85 ; 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 ; 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 kidney disease, or unspecified chronic kidney disease I13.0 and Chronic kidney disease, stage 4 (severe) N18.4 [facility] [address] [place] [address] 03/21/2025 Rajwinder Johns COPD (chronic obstructive pulmonary disease) J44.9 ; Type 2 diabetes mellitus with diabetic neuropathy, unspecified E11.40 ; Uncontrolled type 2 diabetes mellitus with hyperglycemia E11.65 ; Chronic respiratory failure with hypoxia J96.11 ; senior care (current) use of insulin Z79.4 ; Long-term current use of injectable noninsulin antidiabetic medication Z79.85 ; 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 ; 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 kidney disease, or unspecified chronic kidney disease I13.0 and Chronic kidney disease, stage 4 (severe) N18.4 [facility] [address] [place] [address] 04/17/2025 Operations Clinical Type 2 diabetes mellitus [...] closed fracture with routine healing S82.851D ; senior care (current) use of insulin Z79.4 ; Long-term [...] and mobility R26.89 and Tachycardia, unspecified R00.0 [facility] [address] [place] [address] 04/25/2025 Alessia Garza Palliative care by specialist Z51.5 and COPD (chronic obstructive pulmonary disease) J44.9 [facility] [address] [place] [address] 09/26/2024 Rajwinder Johns [facility] [address] [place] [address] 10/10/2024 Rajwinder Nat [facility] [address] [place] [address] 10/10/2024 Rajwinder Nat [facility] [address] [place] [address] 12/02/2024 Rajwinder Johns [facility] (Closed) [address] [place] [address] 03/30/2025 Operations Clinical [facility] (Closed) [address] [place] [address] 04/05/2025 Opal Gustafson [facility] [address] [place] [address] 04/26/2025 Opal Gustafson Assessments Encounter Date Diagnosis (ICD Code) Assessment Notes Treatment Notes Treatment Clinical Notes Section Notes 06/06/2024 Displaced trimalleolar fracture of right lower [...] - Observe fluid restrictions if advised by it program manager/PCP - Continue routine F/U with it program manager and PCP - Contact provider or call [...] up with pulmologist later today - Dr. Vincent - Continue medications and inhalers as prescribed [...] sat 98% - Had follow up with environmental remediation consultant - Continue medications and inhalers as prescribed [...] - Observe fluid restrictions if advised by it program manager/PCP - Continue routine F/U with it program manager and PCP - Contact provider or call [...] sat 98% - Had follow up with environmental remediation consultant - Continue medications and inhalers as prescribed [...] sat 98% - Had follow up with environmental remediation consultant - Continue medications and inhalers as prescribed [...] sat 98% - Had follow up with environmental remediation consultant - Continue medications and inhalers as prescribed [...] sat 98% - Had follow up with environmental remediation consultant - Continue medications and inhalers as prescribed [...] sat 98% - Had follow up with environmental remediation consultant - Continue medications and inhalers as prescribed [...] sat 98% - Had follow up with environmental remediation consultant - Continue medications and inhalers as prescribed [...] to music. - Member considering assistance from [facility] - Follow up with PCP routinely, and [...] to music. - Member considering assistance from [facility] but declines today - Follow up with [...] listening to music. - Member agreeable to [facility] referral today - Follow up with PCP [...] left with him - Member agreeable to [facility] referral today - Follow up with PCP [...] listening to music. - Member agreeable to [facility] referral - In process - Follow up [...] listening to music. - Member agreeable to [facility] referral - In process - Follow up with PCP routinely, and prescriber - Angie Mccray, advised to make her aware of [facility] referral to community therapist - [...] listening to music. - Member agreeable to [facility] referral - In process - Follow up with PCP routinely, and prescriber - Angie Mccray, advised to make her aware of [facility] referral to community therapist - [...] listening to music. - Member agreeable to [facility] referral - awaiting contact - Follow up [...] pathways around bedroom, apartment in general - Son/TRANSPORT OPERATIONS INSPECTOR asked to help with this - Refer [...] with diabetic neuropathy, unspecified (ICD-10 - E11.40) 04/25/2025 COPD (chronic obstructive pulmonary disease) (ICD-10 - J44.9) -Reviewed energy conservation techniques. - Worsening symptoms reviewed as well as when to contact palliative care or PCP 04/25/2025 Palliative care by specialist (ICD-10 - Z51.5) -Palliative care services reviewed. Member/caregive r consented to today's visit and palliative services. -Discussed disease trajectory and associated symptoms -GOC discussion: See social history section -Advanced Care Planning: HCP: Copy in EMR (eCW) 09/03/2023 Lewis Pappas. MOLST: Completed 04/13/24. DNR/DNI/use non-inv vent/transfer to hospital. To be scanned into eCW -Palliative care contact information reviewed and provided. -[facility] services/contac t information reviewed and provided. -Collaborated with PCP and CCA director career 04/17/2025 Uncontrolled type 2 diabetes mellitus with [...] Chronic/Labile - continues with complaints, seen at [facility] yesterday and received c/b today no infection [...] medication as prescribed - Novolog per [facility] - Recommend yearly eye exams, A1c - Recommend diabetic diet - offered referral to community educator - declines - Discussed potential for [...] Recommend diabetic diet - offered referral to community educator - declines - Discussed potential for [...] Recommend diabetic diet - offered referral to community educator - declines - Discussed potential for [...] medication as prescribed - Novolog per , [facility] - Recommend yearly eye exams, A1c - Recommend diabetic diet - offered referral to community educator - declines - Discussed potential for [...] Recommend diabetic diet - offered referral to community educator - declines - Discussed potential for [...] pain/stress on joints - Continue PT at [facility] - Use assistive devices to [...] pain/stress on joints - Continue PT at [facility] - Use assistive devices to [...] pain/stress on joints - Continue PT at [facility] - Use assistive devices to [...] pain/stress on joints - Continue PT at [facility] - Use assistive devices to [...] pain/stress on joints - Continue PT at [facility] - Use assistive devices to [...] pain/stress on joints - Continue PT at [facility] - Use assistive [...] pain/stress on joints - Continue PT at [facility] - Use assistive [...] to music. - Member declines assistance from [facility] - Follow up with PCP and prescriber - Angie Mccray, advised to f/u on referral to community therapist - Reminded to call pcp or this [facility] for worsening anxiety 08/23/2024 RACHNA (generalized anxiety disorder) (ICD-10 - F41.1) Chronic/Labile -Reviewed nature of anxiety, which can range from excessive worry to incapacitating baseless fear. Discussed s/s of shelia and when to report. Denies self harm, insomnia, difficulty concentrating. -Reviewed nonmedical management techniques - breathing (8-7-4 technique), meditating, reading, listening to music. - Member declines assistance from [facility] - Follow up with PCP and prescriber [...] s/s of anxiety. Member declines assistance from [facility] - Follow up with PCP and prescriber [...] s/s of anxiety. Member declines assistance from [facility] - Follow up with PCP and prescriber [...] s/s of anxiety. Member declines assistance from [facility] - Follow up with PCP and prescriber [...] s/s of anxiety. Member declines assistance from [facility] - Follow up with PCP and prescriber [...] s/s of anxiety. Member declines assistance from [facility] - Follow up with PCP and prescriber [...] s/s of anxiety. Member declines assistance from [facility] - Follow up with PCP and prescriber [...] s/s of anxiety. Member declines assistance from [facility] - Follow up with PCP and prescriber [...] s/s of anxiety. Member declines assistance from [facility] - Follow up with PCP and prescriber [...] by controlling BP. Continue to f/u with PCP/Maintainer Plant routinely 11/04/2024 Hypertensive heart and chronic kidney [...] by controlling BP. Continue to f/u with PCP/Maintainer Plant routinely 10/28/2024 Dementia, unspecified, without behavioral disturbance [...] by controlling BP. Continue to f/u with PCP/Maintainer Plant routinely 11/28/2024 Hypertensive heart and chronic kidney [...] by controlling BP. Continue to f/u with PCP/Maintainer Plant routinely 12/16/2024 Hypertensive heart and chronic kidney [...] by controlling BP. Continue to f/u with PCP/Maintainer Plant routinely 12/27/2024 Type 2 diabetes mellitus with [...] loss - Follow up with PCP and Modeling And Simulation Analyst routinely - Seek ED evaluation for hypoxia, [...] loss - Follow up with PCP and Modeling And Simulation Analyst routinely - Seek ED evaluation for hypoxia, [...] failure with hypoxia (ICD-10 - J96.11) 01/27/2025 senior care (current) use of insulin (ICD-10 - Z79.4) 2025 Chronic respiratory failure with hypoxia (ICD-10 - J96.11) 01/30/2025 Chronic respiratory failure with hypoxia (ICD-10 - J96.11) 02/14/2025 senior care (current) use of insulin (ICD-10 - Z79.4) 04/17/2025 RACHNA (generalized anxiety disorder) (ICD-10 - F41.1) 03/21/2025 senior care (current) use of insulin (ICD-10 - Z79.4) 02/24/2025 long term care pharmacist (current) use of insulin (ICD-10 - Z79.4) 03/09/2025 senior care (current) use of insulin (ICD-10 - Z79.4) [...] noninsulin antidiabetic medication (ICD-10 - Z79.85) 01/30/2025 long term care pharmacist (current) use of insulin (ICD-10 - Z79.4) 01/27/2025 Long-term current use of injectable noninsulin antidiabetic medication (ICD-10 - Z79.85) 2025 long term care pharmacist (current) use of insulin (ICD-10 - Z79.4) 12/27/2024 senior care (current) use of insulin (ICD-10 - Z79.4) [...] disease, stage 3b (ICD-10 - N18.32) 07/07/2024 senior care (current) use of insulin (ICD-10 - Z79.4) 07/15/2024 Chronic kidney disease, stage 3b (ICD-10 - N18.32) 06/24/2024 senior care (current) use of insulin (ICD-10 - Z79.4) [...] Continue outpatient F/U with psych/prescribers and involve [facility] team as appropriate - Monitor for increased [...] Continue outpatient F/U with psych/prescribers and involve [facility] team as appropriate - Monitor for increased [...] Controlled - Weight gain since home from [facility] - Avoid gaining additional weight [...] Controlled - Weight gain since home from [facility] - Avoid gaining additional weight [...] Controlled - Weight gain since home from [facility] - Avoid gaining additional weight [...] Controlled - Weight gain since home from [facility] - Avoid gaining additional weight [...] Controlled - Weight gain since home from [facility] - Avoid gaining additional weight [...] exacerbation Continue nebulizer treatments as prescribed by environmental remediation consultant Recommend closing windows, running air purifier or [...] exacerbation Continue nebulizer treatments as prescribed by environmental remediation consultant Recommend closing windows, running air purifier or [...] goal <140/90, ideally <130/80 - F/U with PCP/it program manager/n ephrologist for ongoing mgmt and monitoring 02/24/2025 [...] goal <140/90, ideally <130/80 - F/U with PCP/it program manager/n ephrologist for ongoing mgmt and monitoring 03/21/2025 [...] goal <140/90, ideally <130/80 - F/U with PCP/it program manager/n ephrologist for ongoing mgmt and monitoring 04/17/2025 [...] goal <140/90, ideally <130/80 - F/U with PCP/it program manager/n ephrologist for ongoing mgmt and monitoring 01/27/2025 [...] as BP remains stable - F/U with PCP/it program manager/n ephrologist for ongoing mgmt and monitoring 01/30/2025 [...] Recommend diabetic diet - offered referral to community educator - declines - Discussed potential for [...] Recommend diabetic diet - offered referral to community educator - declines - Discussed potential for [...] Recommend diabetic diet - offered referral to community educator - declines - Discussed potential for [...] medication as prescribed - Novolog per [facility] - Recommend yearly eye exams, A1c - Recommend diabetic diet - offered referral to community educator - declines - Discussed potential for [...] will continue to monitor s/sx UTIs 07/15/2024 long term care pharmacist (current) use of insulin (ICD-10 - Z79.4) 07/22/2024 long term care pharmacist (current) use of insulin (ICD-10 - Z79.4) [...] will continue to monitor s/sx UTIs 07/28/2024 senior care (current) use of insulin (ICD-10 - Z79.4) 08/02/2024 long term care pharmacist (current) use of insulin (ICD-10 - Z79.4) 08/08/2024 long term care pharmacist (current) use of insulin (ICD-10 - Z79.4) 08/23/2024 long term care pharmacist (current) use of insulin (ICD-10 - Z79.4) 08/16/2024 long term care pharmacist (current) use of insulin (ICD-10 - Z79.4) 08/30/2024 long term care pharmacist (current) use of insulin (ICD-10 - Z79.4) [...] as BP remains stable - F/U with PCP/it program manager/n ephrologist for ongoing mgmt and monitoring 10/28/2024 [...] goal <140/90, ideally <130/80 - F/U with PCP/it program manager/n ephrologist for ongoing mgmt and monitoring 03/09/2025 [...] by controlling BP. Continue to f/u with PCP/Maintainer Plant routinely 10/21/2024 Hypertensive heart and chronic kidney [...] by controlling BP. Continue to f/u with PCP/Maintainer Plant routinely 10/07/2024 Hypertensive heart and chronic kidney [...] by controlling BP. Continue to f/u with PCP/Maintainer Plant routinely 09/29/2024 Hypertensive heart and chronic kidney [...] by controlling BP. Continue to f/u with PCP/Maintainer Plant routinely 09/22/2024 Hypertensive heart and chronic kidney [...] by controlling BP. Continue to f/u with PCP/Maintainer Plant routinely 09/15/2024 Hypertensive heart and chronic kidney [...] by controlling BP. Continue to f/u with PCP/Maintainer Plant routinely 08/30/2024 Long-term current use of injectable [...] can improve cardiovascular outcomes as well. 07/07/2024 LADO on CPAP (ICD-10 - G47.33) Chronic/Stable Patient [...] joints - Will start outpatient PT at [facility] by next week. - [...] PLACE ORDER FOR HOME PEDAL DEVICE THROUGH [employer] [facility] 09/15/2024 COPD (chronic obstructive pulmonary disease) (ICD-10 [...] joints - Will start outpatient PT at [facility] by next week. - [...] PLACE ORDER FOR HOME PEDAL DEVICE THROUGH [employer] [facility] 08/08/2024 Other chronic pain (ICD-10 - G89.29) [...] joints - Will start outpatient PT at [facility] by next week. - [...] PLACE ORDER FOR HOME PEDAL DEVICE THROUGH [facility] 08/16/2024 Other chronic pain (ICD-10 - G89.29) [...] joints - Will start outpatient PT at [facility] by next week. 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 [...] obstructive pulmonary disease) (ICD-10 - J44.9) 10/21/2024 long term care pharmacist (current) use of insulin (ICD-10 - Z79.4) 10/14/2024 senior care (current) use of insulin (ICD-10 - Z79.4) 10/28/2024 COPD (chronic obstructive pulmonary disease) (ICD-10 - J44.9) 10/07/2024 long term care pharmacist (current) use of insulin (ICD-10 - Z79.4) 09/29/2024 senior care (current) use of insulin (ICD-10 - Z79.4) 09/22/2024 long term care pharmacist (current) use of insulin (ICD-10 - Z79.4) 09/15/2024 long term care pharmacist (current) use of insulin (ICD-10 - Z79.4) [...] - member requires assistance, cueing for ADL's, TRANSPORT OPERATIONS INSPECTOR for IADL's - f/u PCP prn 07/07/2024 Dementia, unspecified, without behavioral disturbance (ICD-10 - F03.90) Chronic/Stable - Mild memory issue - member is a/o during visit; patient and family deny confusion and wandering - member requires assistance, cueing for ADL's, TRANSPORT OPERATIONS INSPECTOR for IADL's - f/u PCP prn 04/17/2025 senior care (current) use of insulin (ICD-10 - Z79.4) 04/17/2025 Long-term current use of injectable noninsulin antidiabetic medication (ICD-10 - Z79.85) 06/24/2024 Unilateral primary osteoarthritis, left knee (ICD-10 - M17.12) 07/07/2024 Unilateral primary osteoarthritis, left knee (ICD-10 - M17.12) 10/28/2024 long term care pharmacist (current) use of insulin (ICD-10 - Z79.4) [...] pain or mobility Continue home PT - [facility] Continue tylenol as needed 06/24/2024 Displaced trimalleolar fracture of right lower leg, subsequent encounter for closed fracture with routine healing (ICD-10 - S82.851D) Subacute/Improving Appropriate healing per Ortho - continue up routinely Wearing a walking boot, ambulating with assistance and use of walker Avoid falls, report changes in pain or mobility Continue home PT - [facility] Continue tylenol as needed 06/24/2024 Arthritis, [...] Other Reviewed contac t info for this lead technical writer and to consider calling for [...] Insured Coverage Start Date Coverage End Date [facility]CO ([id number]) [address] [phone] [id number] Mine Peacock Self - patient is the insured 3 9 Medical (General) History Medical History History ICD Code Chest pain (resolved 09/26/2023) Extrapyramidal disorder G25.9 Major depressive disorder, recurrent epi sode, moderate F33.1 Urinary incontinence, unspecified type R 32 Acute cystitis without hematuria N30.00 COPD exacerbation (resolved 07/14/2024) undefined COVID-19 virus infection (resolved 07/14) Surgical History Surgery Date(Month/Year) [facility] Right ankle ORIF 04/2024 Hospitalization History Reason Date(Month/Year) [facility] ED - Hyperglycemia 2024 [facility] ED- COPD exac, ?UTI 12/23 [facility] ED - COPD exac 06/26/2024 [facility] STR following ankle fracture 05/2024-06/22/2024 [facility] Right bi-malleolar fracture 04/2024 [facility] for dysuria left AMA d/t long wait time 04/03/2024 [facility] ED bronchitis 02/13/24 [facility] ED chest and back pain (ACS ruled ou t) 12/04/23 [facility] ED chest and back pain (ACS ruled ou t) 12/02/23 [facility] - ? Sepsis (ruled out) 11/28- [facility]- COPD exac, UTI 11/17-04/05
--- OUTSIDE RECORDS SUMMARY | 2025-05-08 07:54 | XMS_ITS | Continuity of Care Document ---
Author Name [facility], Medical Address [address] [place] [id number] Organization Unknown Address [address] [place] [id number] Medications No known medications Problems No known problems
--- OUTSIDE RECORDS SUMMARY | 2025-05-08 07:54 | XMS_ITS | Clinical Summary ---
Author Organization [facility] Address [address] [place] [address] Phone Care Team Providers Care Digital Account Supervisor Name Role Phone Shelbi Perez MD Primary Care Provider [phone] Allergies Active Allergy Reactions Criticality Noted Date Comments Adhesive Tape 08/12/2021 Other reaction(s): skin irritation Fluticasone-Sodium Chloride Other (see comments) 08/12/2021 Trimethobenzamide 07/09/2021 Other reaction(s): GI s/s Medications acetaminophen (TYLENOL) 500 MG tablet Active Albuterol Sulfate 108 (90 Base) MCG/ACT aerosol powder 1 puff by Other route Active Aclidinium [place] ([employer] [place]) Inhale 4 Active insulin [...] MINI PEN NEEDLES 31G X 5 MM [facility] USE TO ADMINISTER INSULIN TWICE DAILY [...] to complete this topic Insurance [place] [employer] ([id number]) [place] [facility] ([id number]) Care Teams Digital Account Supervisor Relationship Specialty Start Date End Date Shelbi Perez MD [facility] [place] [address] PCP - General Internal Medicine 09/18/21
--- OUTSIDE RECORDS SUMMARY | 2025-05-08 07:54 | XMS_ITS | Clinical Summary ---
Author Organization [address] [facility] Address [address] [place] [address] Phone Care Team Providers Care Assistant Program Director Name Role Phone Delaney Sherman MD Primary Care Provider [phone] Social History Tobacco Use Types Packs/Day Years [...] HEMOGLOBIN A1C Routine 06/14/2024 4:50 AM EST long-term (current) use of insulin ([facility]) Type 2 diabetes mellitus without complications ([facility]) from Last 3 Months or Most Recently Relevant to Health Maintenance Results * (ABNORMAL) Hemoglobin A1c (06/14/2024 4:50 AM EST) Hemoglobin A1C 6.5(H) <6.5 % LAB CHEMISTRY METHOD 06/14/2024 12:[address] [facility] Mean Bld Glu Estim. 140 mg/dL LAB CHEMISTRY METHOD 06/14/2024 12:[address] [facility] Blood Venous blood specimen / Unknown Venipuncture / Unknown 06/14/2024 4:50 AM EST 06/14/2024 8:48 AM EST us Delaney Sherman MD LAB BLOOD ORDERABLES Final Resu lt [facility] [place] [facility] [address] [place] [address], from Last 3 Months or Most Recently Relevant to Health Maintenance Insurance [employer] Member Subscriber Plan / Payer (Ef fective 2023-Present) Name:Mien Peacock Relation to Subscriber:Self Name:Mine Peacock Payer ID:[id number] Group ID:[id number] Type:Not on file Address: [place] [address] [address] [place] [id number] Care Teams Assistant Program Director Relationship Specialty Start Date End Date Delaney Sherman MD [address] [place] [id number] PCP - General Hospitalist Medicine 06/14/24
--- OUTSIDE RECORDS SUMMARY | 2025-05-08 07:54 | XMS_ITS | Patient Health Record ---
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 Name Role Phone Chris BROWNE, [facility] Primary Care Provider Nik Horner Unavailable [phone] Allergies No Known Allergies Results Component Value [...] Problem Acquired hammer toe of right foot (7033454357055720 ) Other hammer toe(s) (acquired), right foot (M20.41) Active confirmed Response to treatment, Improvemen t Problem Acquired hammer toe of left foot (9698804193439596 ) Other hammer toe(s) (acquired), left foot (M20.42) Active confirmed Response to treatment, Improvemen t Problem Polyneuropathy due to type 2 diabetes mellitus (929093375) Type 2 diabetes mellitus with diabetic polyneuropathy (E11.42) Active confirmed Vital Signs Blood pressure diastolic 65 mm Hg 04/04/2025 Height 5 ft in 04/04/2025 Blood pressure systolic 128 mm Hg 04/04/2025 Weight 198 lbs 04/04/2025 BMI 38.67 kg/m2 04/04/2025 Procedures Procedure Date Ordered Date Performed Result Body Sit e 35520-NQDUHIG NAIL, 6 OR MORE 08/19/2024 N/A 13016-LOVY SKIN LESIONS, OVER 4 08/19/2024 N/A 49455-DNGAVUJ NAIL, 6 OR MORE 11/15/2024 N/A 11284-SSMN SKIN LESIONS, OVER 4 11/15/2024 N/A 15531-NXVLPUO NAIL, 6 OR MORE 04/04/2025 N/A 16713-CRUK SKIN LESIONS, OVER 4 04/04/2025 N/A Encounters Encounter Location Date Provider Diagnosis [facility] [place] [address] [place] [address] 08/19/2024 Nik Hernandez Type 2 diabetes mellitus with diabetic polyneuropathy E11.42 ; Tinea unguium B35.1 ; Other hammer toe(s) (acquired), right foot M20.41 and Other hammer toe(s) (acquired), left foot M20.[address] [address] 11/15/2024 Nik Hernandez Type 2 diabetes mellitus with diabetic polyneuropathy E11.42 and Tinea unguium B35.[address] [address] 04/04/2025 Nikelbert Hernandez Type 2 diabetes mellitus with diabetic polyneuropathy E11.42 ; Tinea unguium B35.1 ; Other hammer toe(s) (acquired), right foot M20.41 and Other hammer toe(s) (acquired), left foot M20.[address] [address] 11/14/2024 Nik Hernandez [address] [address] 11/15/2024 Nik Hernandez Assessments Encounter Date Diagnosis [...] Treatment Pending Test Test Name Order Date 41819-WEGALVW NAIL, 6 OR MORE 05/11/2020 03046-FOUCAYL NAIL, 6 OR MORE 09/21/2020 63906-MKMVZED NAIL, 6 OR MORE 12/21/2020 69609-WMPQVWW NAIL, 6 OR MORE 05/17/2021 99843-XJRXIJK NAIL, 6 OR MORE 08/23/2021 83278-OHBEPIV NAIL, 6 OR MORE 01/28/2022 28518-XWCDUUT NAIL, 6 OR MORE 03/01/2024 05509-NUXKMHS NAIL, 6 OR MORE 08/19/2024 52298-QRZCMBL NAIL, 6 OR MORE 11/15/2024 36549-YGJASIL NAIL, 6 OR MORE 04/04/2025 77340-ULRF SKIN LESIONS, OVER 4 04/04/20 25 39847-KCJX SKIN LESIONS, OVER 4 11/16/19 25 55925-SLLK SKIN LESIONS, OVER 4 08/19/19 25 76651-HSSO SKIN LESIONS, OVER 4 03/01/20 24 Next Appt Details Provider Name:Nik Hernandez , 08/01/2025 09:00:00 AM, [address] [place], [address], Insurance Providers Payer Name Payer Address Payer Phone Subscriber Number Group Number Insured Name Patient Relationship to Insured Coverage Start Date Coverage End Date [facility] [employer] Claims [address] [facility] [place] [id number] Mine Peacock Self - patient is the insured Medical (General) History Medical History History ICD Code Lung disease COPD CAD Depression Restless Leg type II diabetes Surgical History Surgery Date(Month/Year) teeth extraction Surgery 2019 Left Knee Replacement Right ankle ORIF 2023 Hospitalization History Reason Date(Month/Year) [facility]- fell broke her Right ankle 03/20[place] [facility] [place]20[place] [facility] [place] pneumonia[place] high sugars 15 days
--- OUTSIDE RECORDS SUMMARY | 2025-05-08 07:54 | XMS_ITS | Data Portability ---
Author Organization [employer], [facility] Address [address] [place] [address] Care Team Providers Care Instrument And Control Service Person Name Role Phone HIM CCA OTHER IVAN DUMONT Primary Care Provider [phone] Assessment Encounter Date Assessment Date Assessment LastModified by Organization Details LastModified Time 04/08/2025 04/08/2025 I have reviewed and agree with the Assessment and Plan as documented by the Divorce Lawyer. I provided real-time medical direction via phone for this encounter, and was available for additional phone based assistance as needed. I would add/emphasize: Patient seen for 1 week of shortness of breath/exertiona l dyspnea/intermit tent cough. History of COPD. Wheezing on exam. COVID and flu testing negative. Oxygenation stable on home 2 L of oxygen. No fevers chills or myalgias. No focal consolidation suggested on lung sounds. Has some lower extremity swelling but no orthopnea or prior history of heart failure. Symptoms have been slowly progressing. Will trial course of steroid burst and have patient utilize her nebulizer more frequently given concern for acute exacerbation of COPD. Reviewed red flag symptoms that should prompt presentation to the emergency department patient voices understanding. Recommended close follow-up with PCP this week for reevaluation. pallfather Not available 04/09/2025 08:32:30 04/20/2025 04/20/2025 75 yo F with 1 week of worsening dry cough and dyspnea. Has been using albuterol nebulizer 2-3 times daily. No F/C, CP, N/V. VS wnl, SpO2 97% on 2L NC, 91% on room air (normally on 2L only at night and is mid-90s on RA per patient). Lungs with diminished breath sounds, no wheezing or rales. COVID and flu testing were negative Impression: COPD exacerbation patient was recently rx'd prednisone (2 wks prior to this visit) but never picked it up from pharmacy - given 1 duoneb with some improvement subjectively - given 40mg prednisone now x 1 - will send rx for pred 40mg to complete total 5 day burst - should use albuterol q4-6 hours PRN SOB; if using more than q4 hours, should seek emergency care - precautions reviewed [email or web address] Not available 04/20/2025 21:02:20 Plan of Treatment Reminders Order Date Submit Date Provider Last Modified By Organization Details Last Modified Time Details Appointments None recorded. Lab rapid flu (A+B) 2024 [facility] [address] [place] [address], [address] [place] [address], [id number] 17:52:50 rapid SARS CoV 2 Ag, QL IA, respiratory specimen 2024 [facility] [address] [place] [address], [address] [place] [address], [phone] 17:52:50 rapid flu (A+B) 2024 025 [facility], [address] [place] [address], [id number] 5 16:20:43 rapid SARS CoV 2 Ag, QL IA, respiratory specimen 2024 025 [facility], [address] [place] [address], [phone] 5 16:21:13 urinalysis, dipstick [address], [phone] 4 21:33:57 Referral None recorded. Procedures None recorded. Surgeries None recorded. Imaging None recorded. Medication Orders prednisone 20 mg tablet 2024 [facility]acy #[id number], [address] [place], [address], 05:01:25 ipratropium 0.5 mg-albutero l 3 mg (2.5 mg base)/3 mL nebulizatio n soln 2024 025 [id number] [address] [facility] [place], [address], 17:52:50 prednisone 20 mg tablet 2024 025 [facility], [address] [place] [address], [id number], 05:01:25 prednisone 20 mg tablet 2024 025 [id number] [address] [facility] [place], [address], 05:01:25 prednisone 20 mg tablet 2024 025 [id number], [address] [place], [address], 05:01:25 Patient TargetsNo targets recorded. Patient InstructionsNo instructions recorded. Reason for Referral None Reported. Results Created Date Observation Date Name Description Value Unit Range Abnormal Flag Note LastModifiedBy Organization Detail LastModifiedTime 04/20/2004/20/2025 rapid SARS CoV 2 Ag, QL IA, respi rator y speci men rapid SARS CoV 2 Ag, QL IA, respiratory specimen negati ve Not Available [facility] [address], [phone] 04/20/2025 17:49:53 04/20/2004/20/2025 rapid flu (A+B) Flu negati ve Not Available Main-[address], [phone] 04/20/2025 17:49:51 Result Notes None recorded. Medical Equipment None Reported. Medications Name Sig Start Date Stop Date Status Note LastModified by Organization Details LastModified Time tolterodine ER 2 mg capsule,ext ended release 24 hr TAKE 1 CAPSULE BY MOUTH DAILY FOR 30 DAYS active Not Available Not Available No t Available atorvastati n 80 mg tablet TAKE 1 TABLET BY MOUTH EVERY DAY active Not Available Not Available No t Available prednisone 10 mg tablet PLEASE SEE ATTACHED FOR DETAILED DIRECTION S active Not Available Not Available No t Available ipratropium 0.5 mg-albutero l 3 mg (2.5 mg base)/3 mL nebulizatio n soln 3 ML INHALED 4 TIMES A DAY FOR SEVERE COPD FOR 30 DAYS active Not Available Not Available No t Available albuterol sulfate 2.5 mg/3 mL (0.083 %) solution for nebulizatio n INHALE 1 VIAL VIA NEBULIZER EVERY 6 HOURS NEEDED FOR WHEEZING active Not Available Not Available No t Available cefpodoxime 200 mg tablet TAKE 1 TABLET BY MOUTH EVERY 12 HOURS MUST ADMINISTE R WITH A MEAL/FOOD active Not Available Not Available No t Available cefpodoxime 100 mg tablet TAKE 1 TABLET BY MOUTH 2 TIMES A DAY FOR 7 DAYS. MUST ADMINISTE R WITH A MEAL/FOOD 04/30 completed Not Available Not Available Not Available citalopram 10 mg tablet TAKE 1 TABLET BY MOUTH EVERY DAY active Not Available Not Available No t Available prednisone 20 mg tablet Take 2 tablets by oral route for 4 days. 05/01 completed Not Available Not Available Not Available amlodipine 5 mg tablet TAKE 1 TABLET BY MOUTH EVERY DAY active Not Available Not Available No t Available sulfamethox azole 800 mg-trimetho prim 160 mg tablet TAKE 1 TABLET BY MOUTH TWICE A DAY FOR 7 DAYS active Not Available Not Available No t Available aspirin 81 mg tablet,cameron yed release TAKE 1 TABLET BY MOUTH EVERY DAY FOR 90 DAYS active Not Available Not Available No t Available pramipexole 0.5 mg tablet TAKE 1 TABLET BY MOUTH THREE TIMES A DAY FOR 30 DAYS active Not Available Not Available No t Available amoxicillin 875 mg tablet TAKE 1 [...] Available budesonide 0.5 mg/2 mL suspension for nebulizatio n 0.5 MG (2 ML) INHALED 2 TIMES A DAY FOR SEVERE COPD FOR 30 DAYS active Not Available Not Available No t Available montelukast 10 mg tablet TAKE 1 TABLET BY MOUTH EVERY DAY active Not Available Not Available No t Available lisinopril 5 mg tablet TAKE 1 TABLET BY MOUTH EVERY DAY active Not Available Not Available No t Available furosemide 20 mg tablet TAKE 1 TABLET BY MOUTH EVERY OTHER DAY FOR 20 DAYS active Not Available Not Available No t Available cefuroxime axetil 500 mg tablet TAKE 1 TABLET BY MOUTH TWICE A DAY EVERY 12 HOURS active Not Available Not Available No t Available estradiol 0.01% (0.1 mg/gram) vaginal cream USE A PEA SIZED AMOUNT VAGINALLY ON URETHRA 3 TIMES A WEEK active Not Available Not Available No t Available levofloxaci n 750 mg tablet TAKE 1 TABLET BY MOUTH EVERY DAY FOR 7 DAYS active Not Available Not Available No t Available albuterol sulfate HFA 90 mcg/actuati on aerosol inhaler INHALE 2 PUFFS 4 TIMES A DAY NEEDED FOR WHEEZING active Not Available Not Available No t Available ondansetron 4 mg disintegrat ing tablet TAKE 1 TABLET BY MOUTH EVERY 6 HOURS NEEDED FOR NAUSEA AND VOMITING active Not Available Not Available No t Available cefdinir 300 mg capsule TAKE 1 CAPSULE BY MOUTH 2 TIMES A DAY FOR 7 DAYS active Not Available Not Available No t Available cholecalcif sue (vitamin D3) 125 mcg (5,000 unit) capsule TAKE 1 CAPSULE BY MOUTH EVERY DAY FOR 90 DAYS active Not Available Not Available No t Available doxycycline hyclate 100 mg tablet TAKE [...] t Available insulin lispro (U-100) 100 unit/mL subcutaneou s pen INJECT 10 UNITS (0.1 ML) SUBCUTANE OUSLY 3 TIMES A DAY FOR 90 DAYS. USE INSULIN SLIDING SCALE active Not Available Not Available No t Available insulin aspart (U-100) 100 unit/mL (3 mL) subcutaneou s pen PLEASE SEE ATTACHED FOR DETAILED DIRECTION S active Not Available Not Available No t Available bupropion HCl XL 150 mg 24 hr tablet, extended release TAKE 1 TABLET BY MOUTH EVERY DAY IN THE MORNING active Not Available Not Available No t Available nitrofurant oin monohydrate /macrocryst als 100 mg capsule TAKE 1 CAPSULE BY MOUTH TWICE A DAY FOR 7 DAYS (MUST TAKE WITH MEAL/FOOD ) active Not Available Not Available No t Available BD Ultra-Fine Mini Pen Needle 31 gauge x 3/16 USE TO INJECT 4 TIMES A DAY active Not Available Not Available No t Available Levemir FlexPen 100 unit/mL (3 mL) solution subcutaneou s insulin pen INJECT 20 UNITS SUBCUTANE OUSLY ONCE DAILY active Not Available Not Available No t Available ProAir RespiClick 90 mcg/actuati on breath activated 1 PUFF INHALED BY MOUTH EVERY 4 TO 6 HOURS NEEDED FOR SHORTNESS OF BREATH OR WHEEZING active Not Available Not Available No t Available Breo Ellipta 200 mcg-25 mcg/dose powder for inhalation TAKE 1 INHALATIO N ONCE DAILY FOR COPD FOR 30 DAYS active Not Available Not Available No t Available OneTouch Ultra2 Meter USE TO CHECK BLOOD SUGAR TWICE DAILY AND WHEN HAVING SYMPTOMS OF HYPO/HYPE RGLYCEMIA active Not Available Not Available No t Available OneTouch Delica Plus Lancet 30 gauge USE TO CHECK BLOOD SUGAR TWICE DAILY AND WHEN HAVING SYMPTOMS OF HYPO/HYPE RGLYCEMIA active Not Available Not Available No t Available insulin glargine-yf gn (U-100) 100 unit/mL subcutaneou s solution INJECT 20 UNITS (0.2 ML) SUBCUTANE OUSLY DAILY FOR 90 DAYS active Not Available Not Available No t Available Vitals Date Recorded Body temperature Heart rate Respiratory rate Oxygen saturation Oxygen saturation in Arterial blood by Pulse oximetry Systolic And Diastolic Provider Name and Address Organization Details Last Updated DateTime 4 97.2 [degF] 84 /min 16 /min 97 % 97 % 113/70 mm[Hg] Not Available [facility] 4 21:09:53 Date Recorded Body temperature Oxygen saturation Oxygen saturation in Arterial blood by Pulse oximetry Inhaled oxygen flow rate Respiratory rate Heart rate Systolic And Diastolic Provider Name and Address Organization Details Last Updated DateTime 5 97.6 [degF] 97 % 97 % 2 L/min 22 /min 63 /min 152/96 mm[Hg] Not Available [facility] [employer] 5 14:28:52 Date Recorded Respiratory rate Body temperature Oxygen saturation Oxygen saturation in Arterial blood by Pulse oximetry Inhaled oxygen flow rate Heart rate Systolic And Diastolic Provider Name and Address Organization Details Last Updated DateTime 5 20 /min 97.6 [degF] 97 % 97 % 2 L/min 81 /min 128/72 mm[Hg] Not Available [facility] 5 17:46:47 Date Recorded Oxygen saturation Oxygen saturation in Arterial blood by Pulse oximetry Body temperature Respiratory rate Heart rate Systolic And Diastolic Provider Name and Address Organization Details Last Updated DateTime 3 97 % 97 % 97.5 [degF] 16 /min 90 /min 118/64 mm[Hg] Not Available [facility] 3 12:26:46 Social History None recorded. Functional Status None recorded. Mental Status None recorded. Family History Nothing Reported. Medical History No medical history recorded. Gynecological HistoryNo gynecological history recorded. Obstetrics History GPAL:G 0 P 0 0 0 0 Past Encounters Encounter ID Performer Location Encounter Start Date Encounter Closed Date Diagnosis/Indication Diagnosis SNOMED-CT Code Diagnosis ICD10 Code Diagnosis IMO Codes Diagnosis Note [id number] Wolf Gaffney MD Main - [address] [address] 07/06/2023 12:26:44 07/07/2023 10:24:56 Chronic pain syndrome 025602341 G89.4 This 73-year-ol d female was in [...] d that she make arrangemen ts to berry picker her oxycodone. She will follow-up with her PCP. The patient agreed with this plan. [id number] James Reyes MD Main - [address] [address] 04/04/2024 21:09:50 04/04/2024 22:54:52 Abdominal pain 79267538 R10.9 As noted, we were called to see this patient regarding concerns of suprapubic and flank pain. Evaluation in the field was performed by my furniture removalist's assistant colleague, as noted above, I provided real-time [...] with a normal urinalysis and her age. [id number] Alfred Hensley MD [address] [address] 04/08/2025 14:28:45 04/09/2025 20:43:57 Acute exacerbation of chronic obstructive pulmonary disease 241741086 J44.1 [id number] LOY MARTINEZ MD [place] [address] 04/20/2025 17:46:40 04/21/2025 09:53:43 Acute exacerbation of chronic obstructive pulmonary disease 489131063 J44.1 [id number] Health Concerns Section Related Observation LastModified by Organization Detai ls LastModified Time None Recorded Concern Status LastModified by Organization Details LastModified Time None Recorded Advance Directives Directive None Recorded Payers Insurance Date Sequence Insurance Name Policy Number Policy Wesley Covered Member ID Wesley Member ID Guarantor Name 04/20/[address] [facility] - DOS ON OR AFTER 2022 - DUAL ELIGIBLE - SKILLED NURSING OPTIONS AND ONE CARE (MEDICARE REPLACEMENT/ADV ANTAGE - HMO) Mine Peacock [id number] Mine Peacock Notes Date Note Type Note Provider Name and Address Organization Details Recorded Time 07/06/2023 text/html ROS as noted in the [facility] CRC Nurse Triage Notes (Angela Dunn): Chief [...] visit on 07/06 - Donnie Gaffney MD [address] [place] [address],[address], [place], [address], [facility] 07/06/2023 12:33:16 04/04/2024 text/html HPI: Possible UTI - lower stomach pain and pressure when passing urine. ...................... ...................... ...................... ...................... ...................... ...................... ......... CRC Nurse Triage Notes (Ethel Parry): Chief Complaints: Abdominal Pain, UTI/Pyelonephritis PMH: COPD/Asthma, Diabetes Comments: Spoke with CCA TAR HEEL Rajwinder who reporting member is having s/s of UTI, hx of recurrent UTI's, DM, HTN, HF, Member was prescribed one dose of Nitrofurantoin, and UC pending (sent off), member is c/o sharp pelvic pain, dysuria. Denies fever or hematuria. TAR HEEL asking for NELDA to see member before going to the ED for further workupLazaro GUTIERREZ Divorce Lawyer Organization Information for [employer] Name: [facility] Address: [address] [place] [address], Care Mgr: Yoan Montana MD [place] No.: [id number] Divorce Lawyer POC Test Results from [employer] Urine Dipstick (19:30:04) Urine leukocytes: - IBAN Urine nitrites: - NIT Urine urobilinogen: - URO Urine protein: trace PRO Urine pH: 5.0 pH Urine blood: - BLO Urine specific gravity: 1.015 SG Urine ketones: - KET Urine bilirubin: - TERESA Urine glucose: - GLU ...................... ...................... ...................... ...................... ...................... ...................... ......... Divorce Lawyer Note From Alfonzo Barragan: Pt reports bilateral flank pain and suprapubic pain since yesterday. Pt denies dysuria, hematuria, f/n/v/d. Pt is alert, visibly uncomfortable. VSS. Afebrile. Non focal neuro exam. Normal gait. Lungs CTA. Suprapubic tenderness. Bilateral CVA tenderness. No LE edema. Unremarkable UA. [facility] contacted and advised ED transport for CT scan. 911 initiated for transport to [facility]. SBAR to [facility] BLS. ...................... ...................... ...................... ...................... ...................... ...................... ......... Disposition: Fulfilled James Reyes MD [address] [place] [address],[address], [place], [phone], [employer] 04/04/2024 21:11:47 04/08/2025 text/html CRC Nurse Triage Notes (Dawit Figueroa): Reason For Request: SOB/cough/back pain Denies: Increased work of breathing/labored with or without fever Unable to speak in full sentences without distress Discoloration of skin -cyanosis Needs to sleep sitting up, can t catch breath Shortness of breath in setting of confusion Chief Complaints: Cough, Breathing Problems, Back Pain PMH: COPD/Asthma, Diabetes Mellitus Type 2 PMH Reviewed at 04/08/2025:17 Allergies Reviewed at 04/08/2025:17 Comments: 75 y.o female complains of Cough, Breathing Problems, Back Pain Patient states she has COPD, reports she has a cough but I can't get the phlegm to come up . Patient states my back is killing me . Patient reports cough started yesterday and [...] across, denies any known injury to the area. Patient endorses chills alternating with sweats, but denies [...] this is not new since being sick. I provided information on the mobile health provider response time and advised the patient and/or caregiver to monitor reported signs and symptoms. I discussed the warning signs of when to seek emergency care -Narda Figueroa RN Divorce Lawyer Organization Information for Suraj Dawson Business Legal Name: [employer]. Address: [address] [place] [address], Care Mgr: Vishal Dawson MD [facility] No.: [id number] Divorce Lawyer POC Test Results from [employer] Rapid COVID antigen (14:26:34) COVID: - Attachments uploaded as part of this test result can be found under Documents section. Rapid influenza antigen (14:26:35) Flu: - Attachments uploaded as part of this test result can be found under Documents section. ...................... ...................... ...................... ...................... ...................... ...................... ......... Divorce Lawyer Note From Suraj Dawson: Encountered patient seated upright and conscious. Patient [...] one hour prior to contact with this software writer. POCT Covid and flu swabs performed, both resulted negative; [facility] notified. Skin warm, dry and of appropriate color for ethnicity. Head and neck, free of trauma and edema. -JVD. Breath sounds exhibit expiratory wheezes in all rivers. Abdomen is soft, non-tender and non-distended. Upper extremities, free of trauma and edema. Lower extremities exhibit 2+ pitting edema on the right and trace edema on the left; peripheral pulses present throughout. [facility] contacted: 40 mg of PO prednisone administered after medication r ights were reconciled with patient. [facility] state sale software writer prescription for further treatment to a pharmacy of patient s choice. [facility] states patient should be seen by her primary care this coming week for more extensive work up. Patient was encouraged to monitor herself for worsening shortness of breath, chest pain or fevers and was encouraged to seek further medical attention including 911 if said symptoms were to develop. Patient verbalizes understanding of the plan and states she is comfortable remaining home today. [facility] Lab Orders: rapid flu (A+B): Performed rapid SARS CoV 2 Ag, QL IA, respiratory specimen: Performed [facility] Medication Orders: prednisone 20 mg tablet: Performed prednisone 20 mg tablet: Performed ...................... ...................... ...................... ...................... ...................... ...................... ......... [facility] Consulted: Alfred Hensley ...................... ...................... ...................... ...................... ...................... ...................... ......... Disposition: Fulfilled Alfred Hensley MD [address] [place] [address],[address], [place], [address], [employer] 04/09/2025 08:32:42 04/20/2025 text/html CRC Nurse Triage Notes (Ethel Parry): Reason For Request: Patient Congested, has a cough. back pain also. Patient Reports: Cough, fever greater than 2 days ; Lower extremity swelling; History of asthma, increased use of inhaler; COPD; Sputum increase ; Cough; Shortness of breath with exertion; Pain with inspiration Denies: Increased work of breathing/labored with or without fever Unable to speak in full sentences without distress Discoloration of skin -cyanosis Needs to sleep sitting up, can t catch breath Shortness of breath in setting of confusion COVID Exposure Chief Complaints: Breathing Problems, Back Pain PMH: COPD/Asthma, Diabetes Mellitus Type 2 PMH Reviewed at 04/20/2025 16:19 Allergies Reviewed at 04/20/2025:19 Comments: 75 y.o female complains of Breathing Problems, Back Pain. Reporting back pain for about a week but also hx of chronic back pain which she just takes Tylenol. c/o coughing/congestion x 3 days, having a hard time bringing up her sputum. Member sitting up in her chair to help with her breathing and reporting SOBE. No fevers reported. Member is using her inhalers but not helping today. Currently being treated for a UTI- Chronic back pain- takes Tylenol PRN. No blood thinner use. noted urgent care visit from 04/08 which she was prescribed Prednisone I provided information on the mobile health provider response time and advised the patient and/or caregiver to monitor reported signs and symptoms. I discussed the warning signs of when to seek emergency care. Divorce Lawyer Organization Information for Suraj Dawson Business Legal Name: [employer] Address: [address] [place] [address], Care Mgr: Vishal Dawson MD [facility] No.: [id number] Divorce Lawyer POC Test Results from Suraj Dawson Rapid influenza antigen (17:38:25) Flu: - Attachments uploaded as part of this test result can be found under Documents section. Rapid COVID antigen (17:38:26) COVID: - Attachments uploaded as part of this test result can be found under Documents section. ...................... ...................... ...................... ...................... ...................... ...................... ......... Divorce Lawyer Note From Suraj Dawson: Encountered patient seated upright and conscious with family present. Patient reports history of COPD and is currently experiencing congestion, shortness of breath and a cough that is not productive but I can feel something in there and I can t get it out. Patient denies chest pain and fevers. POCT COVID and flu swabs performed, both resulted negative; [facility] notified. Skin warm, dry and of appropriate color for ethnicity. Head and neck, free of trauma and edema. -JVD. Breath sounds diminished in all rivers but exhibit expiratory wheezes in the bases bilaterally. Abdomen is soft, non-tender and non-distended. Extremities free of trauma and edema. [facility] contacted: 1 duoneb treatment administered. 40mg PO prednisone administered. During exam it was noted that patient was treated for similar symptoms on 04/08/25 and received a prescription for prednisone, however was unable to fulfill it and has gone untreated since. Medications administered after r ights were reconciled with patient. [facility] states they will send a prescription for [...] today and has an appointment with her anchor tacker on 04/28/25. [facility] Lab Orders: rapid flu (A+B): Performed rapid SARS CoV 2 Ag, QL IA, respiratory specimen: Performed [facility] Medication Orders: prednisone 20 mg tablet: Performed ipratropium 0.5 mg-albuterol 3 mg (2.5 mg base)/3 mL nebulization soln: Performed ...................... ...................... ...................... ...................... ...................... ...................... ......... [facility] Consulted: Loy Martinez ...................... ...................... ...................... ...................... ...................... ...................... ......... Disposition: Fulfilled LOY MARTINEZ MD [address] [place] [address],[address] [facility], [place], [place], [id number], [employer] - reQall 04/20/2025 21:02:28 OBGyn Episode No OBEpisode recorded.
--- OUTSIDE RECORDS SUMMARY | 2025-05-08 07:54 | XMS_ITS | Encounter Summary ---
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
--- OUTSIDE RECORDS SUMMARY | 2025-05-08 07:55 | XMS_ITS | Data Portability ---
Author Organization [place] - [facility], [facility] Address [address] [place] [address] Care Team Providers Care Fruit Room Hand Name Role Phone IVAN DUMONT Primary Care Provider Assessment No assessment recorded. Plan of Treatment [...] 2-3 TIMES/WEEK DURATION: 6-8 WEEKS 2023 024 [facility], [address] [place] [address], [address], 5 18:51:39 Procedures None recorded. Surgeries None recorded. Imaging XR, ankle, 3 or more view - duplicate 2024 025 [facility], [address], [place], [address], 5 16:00:50 XR, ankle, 3 or more view - 304 right ankle 3v 2023 024 [facility], [address], [address], [place], [address], 5 18:51:39 XR, ankle, 3 or more view - room 308 right ankle post op 3v ankle NWB 2023 024 [facility], [address], [address], [place], [address], 4 12:27:15 XR, ankle, 3 or more view - room 30 right ankle post op ROOM 307 2023 024 [facility] Office, [address], [address], [place], [address], 4 14:02:27 Medication Orders gabapentin 300 mg capsule 2024 025 [id number], [address] , [place], [address], 5 15:14:00 Patient TargetsNo targets recorded. Patient [...] WEEKS Referring Physician: Ivy Carpenter, Orthopedic Surgery, [id number] Encounter Date: 07/12/2024 Results Created Date Observation Date Name Description Value Unit Range Abnormal Flag Note LastModifiedBy Organization Detail LastModifiedTime 04/28/20 24 04/28/2024 XR, ankle , 3 or more view [email or web address] ?Encry pted=s hAaTro YD8dLq bEUv6g %2BXZw aYqtaq 0bqfl% 2Fg9IQ a4ajBk vP9nXo QUaueC m3YtLR FvZlgJ JJ8mAn HZtai3 6c9461 AC0Kqa 3qNVaK mKiQtr MwF INTERFACE [facility] [address], [place], [address], 04/28/2024 15:09:57 04/28/20 24 04/28/2024 XR, ankle , 3 or more view [email or web address] ?Encry pted=s hAaTro YD8dLq bEUv6g %2BXZw aYqtaq 0bqfl% 2Fg9IQ a4ajBk vP9nXo QUaueC m3YtLR FvZl [facility] HZtai3 6f5463 AC0Kqa 3qNVaK mKiQtr MwF INTERFACE [facility] [address], [place], [address], 04/28/2024 15:09:59 05/31/20 24 05/31/2024 XR, ankle , 3 or more view [email or web address] ?Encry pted=s hAaTro YD8dLq bEUv6g %2BXZw aYqtaq 0bqfl% 2Fg9IQ a4ajBk vP9nXo QUaueC m3YtLR FvZl JJ8Victoria HZtai3 3o1845 AC0Kqa X2EVqq nKiQtr MwF INTERFACE [facility] [address], [place], [address], 05/31/2024 10:39:38 05/31/20 24 05/31/2024 XR, ankle , 3 or more view [email or web address] ?Encry pted=s hAaTro YD8dLq bEUv6g %2BXZw aYqtaq 0bqfl% 2Fg9IQ a4ajBk vP9nXo QUaueC m3YtLR FvZlgJ JJ8mAn HZtai3 7n3049 AC0Kqa X2EVqq nKiQtr MwF INTERFACE [facility] [address], [place], [address], 05/31/2024 10:39:40 07/12/20 24 07/12/2024 XR, ankle , 3 or more view [email or web address] ?Encry pted=s hAaTro YD8dLq bEUv6g %2BXZw aYqtaq 0bqfl% 2Fg9IQ a4ajBk vP9nXo QUaueC m3YtLR FvZlgJ JJ8mAn HZtai3 6c5519 AC0Kqb nWBVaS mKiQtr MwF INTERFACE [facility] [address], [place], [address], 07/12/2024 14:00:39 07/12/20 24 07/12/2024 XR, ankle , 3 or more view [email or web address] ?Encry pted=s hAaTro YD8dLq bEUv6g %2BXZw aYqtaq 0bqfl% 2Fg9IQ a4ajBk vP9nXo QUaueC m3YtLR FvZlgJ JJ8mAn HZtai3 6d1522 AC0Kqb nWBVaS mKiQtr MwF INTERFACE [facility] [address], [place], [address], 07/12/2024 14:00:42 08/30/19 25 08/30/2024 XR, ankle , 3 or more view [email or web address] ?Encry pted=s hAaTro YD8dLq bEUv6g %2BXZw aYqtaq 0bqfl% 2Fg9IQ a4ajBk vP9nXo QUaueC m3YtLR FvZlgJ JJ8mAn HZtai3 5d2926 AC0Kqb X2CVqW gKiQtr MwF INTERFACE [facility] [address], [place], [address], 08/30/2024 14:13:09 08/30/19 25 08/30/2024 XR, ankle , 3 or more view [email or web address]:/ [email or web address] ?Encry pted=s Teddy YD8dLq bEUv6g %2BXZw aYqtaq 0bqfl% 2Fg9IQ a4ajBk vP9nXo QUaueC m3YtLR FvZlgJ JJ8mAn HZtai3 2h1296 AC0Kqb X2CVqW gKiQtr MwF INTERFACE [facility] [address], [place], [address], 08/30/2024 14:13:12 Result Notes Documentation Provider Name and Address Organization Details Recorded Time Xr, Ankle, 3 Or More View : [email or web address] Encrypted=bgHqQaeIY4fHbkQ Uv6g%7ZSSxvQqpqw1unvi%2Fg 1QCp2hsMuvP9oQdYXhmzSr0Bn JAAxIweYVP5gPqEIkpd50l403 0ZZ5Vug0yIDpJxBfHrdZqX Not Available [facility] 04/28/2024 15:09: 57 Xr, Ankle, 3 Or More View : [email or web address] Encrypted=ujZgQxzTA6sLivC Uv6g%9XPMayFzwwb6siec%2Fg 5MOr3jvXyhF0hJbZHmprSz7Wb PIKsHsdMKX4oPoOTnib23e503 7DJ3Txq3cGHdVzXyJkfZsH Not Available [facility] 04/28/2024 15:10: 00 Xr, Ankle, 3 Or More View : [email or web address] Encrypted=qfZvJgtSS1vIwaR Uv6g%9EWQdbOasqb4qpqb%2Fg 1LKi7zcSuzW8zPpNHwasXk0Wa YOMlQpdKHS9oGiWHevt76u084 8PI2GzbR4MFlcpUjLgvDdQ Not Available [facility] 05/31/2024 10:39: 39 Xr, Ankle, 3 Or More View : [email or web address] Encrypted=zuCqXhzEO3wJvnK Uv6g%2EMSvkVutke6nopi%2Fg 3MCu5fnXpzU5rCgLVewuMm6Ev FHQxRqbQRG7kShPCkrn95r663 8GS4YwqZ8JCyjhDyKfhInV Not Available [facility] 05/31/2024 10:39: 41 Xr, Ankle, 3 Or More View : [email or web address] Encrypted=moOcVupXW5mUozN Uv6g%0DHBddPzqkv0czjz%2Fg 8TJb2yoEoiO7zYxVLtscJr8Un GMYhUvuNRR8oLdZMffx72f417 1IC7ClemZFOxVxXcFkwPqM Not Available [facility] 07/12/2024 14:00: 40 Xr, Ankle, 3 Or More View : [email or web address] Encrypted=jvDrRsvTQ5aVvrT Uv6g%8TEBtfIrjxo1vloy%2Fg 1FOc6zrUrcD0pKhSPkcjOq9Pv HAQgSwuNND7wHuQZlql70o465 8PD8JgzgQIJbWwGkTioRyS Not Available [facility] 07/12/2024 14:00: 42 Xr, Ankle, 3 Or More View : [email or web address] Encrypted=roIqHjfBN4jFogQ Uv6g%5MCKzoNxsfg7gxql%2Fg 6LHj8xsLqzT2jFzIIupvUg7Qc FCHhOzkVVZ3tItEVfaw43m631 5AZ1SxrV2PRtAhRdUqgNsL Not Available [facility] 08/30/2024 14:13: 11 Xr, Ankle, 3 Or More View : [email or web address] Encrypted=beCyWauVF5iSxlL Uv6g%9AXBreLgqdm5iwxz%2Fg 0TJj3iuKkcX7wTyBTblqHi4Of RZObPbgEXY7tNbNGznj01d965 2UW1LqeT9PDqMbOeQdtBsW Not Available [facility] 08/30/2024 14:13: 12 Medical Equipment None Reported. Allergies Allergen ID Allergen Name Allergen Category Reaction Reaction Severity Criticality Documentation Date Start Date Code Code System Note Provider Name and Address Organization Details Recorded Time 055679 adhesive tape environme nt,medica tion Not available Not available Not available 04/28/2024 SUMAYA asher [facility] 14:40:58 328231 Tigan medicatio n Not available Not available Not available 04/28/2024 18363 8 RxNorm SUMAYA asher [facility] 14:41:23 [...] TIMES A DAY FOR 7 DAYS. MUST ADMINISTER WITH A MEAL/FOOD active Not Available Not [...] Available No t Available aspirin 81 mg tablet,delay ed release TAKE 1 TABLET BY MOUTH EVERY [...] Not Available Not Available No t Available 3NodToSecucloud Ultra Test strips USE TO CHECK BLOOD [...] 20 DAYS active Not Available Not Available Not [...] active Not Available Not Available Not Available cholecalcife rol (vitamin D3) 125 mcg (5,000 unit) capsule TAKE 1 CAPSULE BY MOUTH EVERY DAY FOR 90 DAYS active Not Available Not Available No t Available oxycodone 5 mg tablet TAKE 1 [...] active Not Available Not Available Not Available insulin glargine-yfg n (U-100) 100 unit/mL subcutaneous solution INJECT 20 UNITS (0.2 ML) SUBCUTANEOU SLY DAILY FOR 90 DAYS active Not Available Not Available Not Available Vitals Date Recorded Body height Provider Name an d Address Organization Details Last Updated DateTime 08/30/2024 152.4 cm LOPEZ EUCEDA [facility] 08/30/2024 14:05:08 Date Recorded Body height Provider Name an d Address Organization Details Last Updated DateTime 04/28/2024 152.4 cm SUMAYA LAND [facility] 04/28/2024 14:40:26 Date Recorded Body height Provider Name an d Address Organization Details Last Updated DateTime 05/31/2024 152.4 cm Milagro haile [facility] 05/31/2024 10:42:48 Date Recorded Body height Provider Name an d Address Organization Details Last Updated DateTime 07/12/2024 152.4 cm Kelly winters [facility] 07/12/2024 13:48:04 Social History Question Answer Notes LastModified by Organizat ion Details LastModified Time Tobacco Smoking Status Unknown If Ever Smoked SUMAYA LAND null, [facility] 04/28/2024 [...] ICD10 Code Diagnosis IMO Codes Diagnosis Note [id number] ADAN Simpsone [address] [place] [address] 04/28/2024 14:06:43 05/23/2024 14:02:27 Closed trimalleolar fracture 8977062 S82.851D [id number] Postoperative visit 1836 44040 Z48.89 [id number] ADAN Simpsone [address] [place] [address] 05/31/2024 09:30:42 06/29/2024 12:27:15 Closed trimalleolar fracture 2408979 S82.851D [id number] Postoperative visit 1836 07664 Z48.89 [id number] ADAN Simpsone [address] [place] [address] 07/12/2024 13:17:43 07/26/2024 18:51:39 Postoperative visit [id number] Z48.89 [id number] Closed tri malleolar fracture 1819228 S82.851D [id number] Ivy Carpenter CNP [facility] [address] [place] [address] 08/30/2024 13:52:29 09/15/2024 16:00:50 Postoperative visit 430372140 Z48.89 [id number] Closed tri malleolar fracture 8715751 S82.851D [id number] Health Concerns Section Related Observation LastModified by Organization Detai ls LastModified Time None Recorded Concern Status LastModified by Organization Details LastModified Time None Recorded Advance Directives Directive None Recorded Payers Insurance Date Sequence Insurance Name Policy Number Policy Wesley Covered Member ID Wesley Member ID Guarantor Name 03/17/2025 1 [facility] - DOS ON OR AFTER 2022 - DUAL ELIGIBLE - PENITENTIARY OPTIONS AND ONE CARE (MEDICARE REPLACEMENT/ADV ANTAGE - HMO) Mine Peacock [id number] Mine Peacock Notes Date Note Type Note [...] by family. She is currently staying at [facility] for rehab. She reports pain is tolerable. [...] X-rays ordered, obtained, and independently reviewed at [facility] today. 3 views right ankle reveal [...] vitamins. FOLLOW UP: 4 weeks Speech recognition practice consultant software was used to create portions of this document. An attempt at proofreading has been made to minimize errors. Please call for corrections. Ivy Carpenter, WOOD LATHE OPERATOR [address], [place], [address], [facility] [place] [facility] 04/28/2024 15:40:53 05/31/2024 text/html I am seeing the patient today under the supervision of Dr. Villela who was available but who did not see the patient. Surgery: ORIF bimalleolar component of trimalleolar fracture right ankleDate of surgery: 04/10/2024Surgeon: Dr. Villela HPI: 74-year-old woman presents status post above surgery. Patient presents in wheelchair accompanied by family. She is currently staying at [facility] for rehab. She reports pain is tolerable. [...] X-rays ordered, obtained, and independently reviewed at [facility] today. 3 views right ankle reveal [...] narcotics. FOLLOW UP: 6 weeks Speech recognition practice consultant software was used to create portions of this document. An attempt at proofreading has been made to minimize errors. Please call for corrections. Ivy Carpenter, WOOD LATHE OPERATOR [address], [place], [address], [facility] [place] [facility] 05/31/2024 12:12:57 07/12/2024 text/html [...] Since last encounter, she was discharged from [facility] rehab. She reports pain is tolerable. They [...] X-rays ordered, obtained, and independently reviewed at [facility] today. 3 views right ankle reveal [...] therapy FOLLOW UP: 8 weeks Speech recognition practice consultant software was used to create portions of this document. An attempt at proofreading has been made to minimize errors. Please call for corrections. Ivy Carpenter, WOOD LATHE OPERATOR [address], [place], [address], [facility] [place] [facility] 07/12/2024 15:21:15 08/30/2024 text/html I am seeing [...] X-rays ordered, obtained, and independently reviewed at [facility] today. 3 views right ankle reveal [...] yet. FOLLOW UP: 3 months Speech recognition practice consultant software was used to create portions of this document. An attempt at proofreading has been made to minimize errors. Please call for corrections. Ivy Carpenter, WOOD LATHE OPERATOR [address], [place], [address], [facility] [place] [facility] 08/30/2024 17:03:12 OBGyn Episode No OBEpisode recorded.
--- NOTE | 2025-05-08 07:56 | ECG_ITS ---
Test Reason : ABD PAIN Blood Pressure : */* mmHG Vent. Rate : 81 BPM Atrial Rate : 81 BPM P-R Int : 164 ms QRS Dur : 84 ms QT Int : 386 ms P-R-T Axes : 63 34 36 degrees QTcB Int : 448 ms Sinus rhythm with Premature atrial complexes Nonspecific ST and T wave abnormality Abnormal ECG When compared with ECG of 23-Dec-2024 13:30, No significant changes seen Referred By: Martita Lance Electronically Signed By: CASH SHELBY
[2025-05-08 08:21] LABS: OBS Int Ctl Valid YES; OBS1 POSITIVE (NEGATIVE)
--- NOTE | 2025-05-08 08:25 | ED.ABDPAIN ---
HPI - Abdominal Pain General Chief Complaint: Abdominal Pain Stated Complaint: stomach pain Time Seen by Provider: 05/08/25 07:41 Source: patient, RN notes reviewed and old records reviewed Mode of arrival: ambulatory History of Present Illness ED Provider: Martita Lance PA-C HPI narrative: 75-year-old female with a past medical history of COPD, diabetes, CKD, ALDO, GERD, s/p appendectomy, cholecystectomy, partial colectomy, presenting to the ED complaining of diffuse abdominal pain x this a.m. with associated brbpr. Denies fever, chills, nausea vomiting, diarrhea, dysuria/hematuria. Does report constipation. Takes baby ASA Related Data Home Medications ?Medication ?Instructions ?Recorded ?Confirmed bupropion HCl 150 mg 24 hr tablet, 150 mg PO DAILY 04/25/20 02/20/25 extended release oxygen-air delivery systems ##1 04/25/20 02/20/25 aspirin 81 mg chewable tablet 81 mg PO DAILY 10/01/21 02/20/25 trazodone 100 mg tablet 200 mg PO BEDTIME 10/01/21 02/20/25 cholecalciferol (vitamin D3) 25 25 mcg PO DAILY 01/04/22 02/20/25 mcg (1,000 unit) capsule hydroxyzine pamoate 25 mg capsule 25 mg PO DAILY 08/13/22 02/20/25 albuterol sulfate 90 mcg/actuation 2 puff inhalation Q4H PRN 09/02/23 02/20/25 aerosol inhaler (ProAir HFA) shortness of breath or wheezing amlodipine 5 mg tablet 5 mg PO DAILY 06/29/24 02/20/25 citalopram 10 mg tablet 20 mg PO DAILY 06/29/24 02/20/25 Previous Rx's ?Medication ?Instructions ?Recorded nebulizers (AeroEclipse II #1 ea 02/05/21 Nebulizer) lancets 28 gauge #100 ea 06/24/21 diaper,brief,adult,disposable #64 ea 05/06/22 blood-glucose meter (OneTouch #1 ea 09/19/22 Ultra2 Meter) walker #1 ea 05/20/23 Shower Chair #1 ea 05/27/23 blood sugar diagnostic (FreeStyle #100 ea 11/13/23 Lite Strips) lancets 30 gauge #100 ea 04/12/24 montelukast 10 mg tablet 10 mg PO DAILY #90 tabs 07/04/24 diaper,brief,adult,disposable #200 ea 11/21/24 insulin aspart U-100 100 unit/mL See Protocol subcut TID #30 mL 01/05/25 (3 mL) subcutaneous pen (Novolog FlexPen U-100 Insulin aspart) insulin glargine 100 unit/mL 20 unit (0.2 mL) subcut DAILY 90 01/27/25 subcutaneous solution (Lantus days #18 mL U-100 Insulin) lisinopril 20 mg tablet 20 mg PO DAILY 90 days #90 tabs 01/27/25 atorvastatin 80 mg tablet 80 mg PO DAILY 90 days #90 tabs 03/06/25 blood sugar diagnostic (OneTouch #100 ea 03/06/25 Ultra Test strips) pen needle, diabetic 31 gauge x #400 ea 03/06/2509/25 pen needle, diabetic 31 gauge x #100 ea 03/07/2509/25 gabapentin 300 mg capsule 300 mg PO ONCE #90 caps 03/28/25 cefpodoxime 200 mg tablet 200 mg PO Q12H #14 tabs 04/18/25 blood pressure test kit-large #1 ea 04/26/25 albuterol sulfate 2.5 mg/3 mL 2.5 mg (3 mL) inhalation Q4-6H PRN 05/04/25 (0.083 %) solution for nebulization for wheezing #75 mL dulaglutide 1.5 mg/0.5 mL 1.5 mg (0.5 mL) subcut QWEEK 30 05/05/25 subcutaneous pen injector days #2.5 mL (Trulicity) ropinirole 2 mg tablet 2 mg PO BID #30 tabs 05/05/25 Allergies Allergy/AdvReac Type Severity Reaction Status Date / Time adhesive tape (ADHESIVE TAPE) Allergy Intermediate RASH Verified 05/08/25 07:44 environmental allergies Allergy Mild URI Verified 05/08/25 07:44 trimethobenzamide (From Allergy Mild NAUSEA Verified 05/08/25 07:44 TIGAN) NSAIDS (Non-Steroidal AdvReac Mild Nephropathy Verified 05/08/25 07:44 Anti-Inflamma Review of Systems Review of Systems Yes all other systems are reviewed and are negative Constitutional: Reports as per [facility] Past Medical History Attestation statement: The following information was validated with the patient. Source: old records reviewed Medical History Exercise hypoxemia Recurrent UTI COPD (chronic obstructive pulmonary disease) Uncontrolled diabetes mellitus Depression, major, recurrent Dysuria Kidney stone on left side Diabetes 1.5, managed as type 1 COPD (chronic obstructive pulmonary disease) Respiratory failure with hypoxia Urinary tract infection Hypoxemia Morbid obesity CKD (chronic kidney disease) Anemia COPD exacerbation Allergic rhinitis ALDO (obstructive sleep apnea) Obesity (BMI 30-39.9) Constipation due to opioid therapy Osteoarthritis of left knee Hx SBO Hyperlipidemia CPAP (continuous positive airway pressure) dependence History of adrenal adenoma Osteochondroma of left femur Arthritis Diabetes Elevated cholesterol History of restless legs syndrome History of diverticulitis GERD (gastroesophageal reflux disease) Surgical History H/O excision of mass History of oophorectomy History of cholecystectomy History of appendectomy History of arthroscopy of left knee History of partial colectomy Hx of cataract extraction H/O exploratory laparotomy H/O colonoscopy History of surgery History of hysterectomy Family History Family History Father HTN (hypertension) Diabetes mellitus Mother HTN (hypertension) Liver cancer Social History Social History 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: Other 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 Other:: ex- has been staying over Housing: House Are you a primary child caregiver private home to a significant other at home: No Do you presently have visiting nurse or other home services: Yes Alcohol intake: never Comment: PT SLEEPING Patient Tobacco Use Status: Never used Tobacco Smoked in Last 30 Days: No e-Cigarette/Vaping Use: Never Used Second Hand Smoke Exposure: No Use of substances other than those prescribed or required for medical reasons: No Advance Directives: Yes Advance Directives on File: Yes Advance Directives Date on File: 10/22/23 service: No Current occupational status: retired Cognitive needs: No Hearing needs: No Vision needs: No Physical Exam ED Vital Signs: Vital Signs - 24 hr 05/08/25 07:43 05/08/25 10:15 Temperature 97.9 F Pulse Rate 90 90 Respiratory Rate 16 18 Blood Pressure 116/63 118/50 L Pulse Oximetry 95 92 Oxygen Delivery Method Room Air Room Air BMI result Body Mass Index 41.2 Const General: cooperative, healthy appearing and no acute distress Orientation/consciousness: patient oriented x3 Limitations: no limitations HENMT Head: Yes normal to inspection and Yes atraumatic Ears: hearing grossly normal bilaterally General nose exam: Normal external nose present Face and sinus: Yes normal facial exam Eyes General: appearance normal, both eyes and all related structures EOM: EOMs intact bilaterally Neck Neck: Yes normal visual inspection and Yes no meningeal signs Resp Effort & Inspection: normal respiratory effort and no respiratory distress Cardio Rate: regular rate GI Other: Old surgical scars noted Palpation (GI): Soft to palpation, Tenderness to palpation present (GI) (Diffusely) with no rebound tenderness, no guarding and not rigid Rectal Exam - Female: visual inspection normal and heme positive stool General: Yes no CVA tenderness Back/Spine/Pelvis Back: no CVA tenderness Skin Rashes: no rashes Wounds: no wounds Neuro General: patient oriented x3, tone normal and no meningeal signs Cranial nerves: Yes CN's II-XII intact bilaterally Gait exam (Neuro): Normal gait present Extrem General: Yes normal to inspection Course Course Course Narrative: -0954--leukocytosis of 15.9. Chronic CKD. Labs otherwise reassuring. -occult stool positive -lactic acid 1.6 CT abdomen pelvis wo IV con IMPRESSION: Concerning acute colitis, left hemicolon. Probably related to diverticulitis although ischemic colitis cannot be entirely excluded. Fleischner guidelines were followed. > will consult General surgery, Dr. Quintanilla > recommended admission to hospitalist. Empiric IV Zosyn ordered. -case discussed with hospitalist Medical Decision Making Medical Decision Making [facility] Narrative: 75-year-old female with a past medical history of COPD, diabetes, CKD, ALDO, GERD, s/p appendectomy, cholecystectomy, partial colectomy, presenting to the ED complaining of diffuse abdominal pain x this a.m. with associated brbpr. On exam vital signs stable, NAD, nontoxic appearing, abdomen is soft diffusely tender, no rebound or guarding, no CVAT. + Hemoccult-positive stool. No appreciable hemorrhoids. Concern for GI bleed vs SBO/constipation vs colitis vs diverticulitis. Lower suspicion for ischemic bowel at this time Plan: EKG, labs, UA, CT AP, IVF, pain control, re-evaluate Please refer to course for remaining clinical decision making, interpretation of labs/imaging results, and discussions with consultants and/or family members. Differential Diagnosis Differential Diagnoses: The differential diagnosis associated with the presentation includes As above Admission/Observation Consideration of admission/observation: Escalation of care including admission/observation considered Consult Healthcare Provider Management of the patient was discussed with: Division Order Technician Lab Data MDM Lab Attestation statement: I reviewed the patient's lab results. 05/08/25 09:08 05/08/25 09:08 Labs: Lab Results 05/08/25 05/08/25 05/08/25 Range/Units 08:15 09:08 10:08 WBC 15.9 H (4.8-10.8) X10*3/uL RBC 4.34 (4.20-5.50) X10*6/uL Hgb 12.2 (12.0-16.0) g/dl Hct 39.1 (37.0-47.0) % MCV 90.1 (80.0-98.0) fL MCH 28.1 (27.0-33.0) pg MCHC 31.2 (31.0-35.0) g/dl RDW 13.2 (11.0-16.0) % Plt Count 259 (160-400) X10*3/uL MPV 11.3 (9.4-12.3) fL Immature Gran % (Auto) 0.4 (0.0-0.4) % Neut % (Auto) 79.8 H (45-73) % Lymph % (Auto) 13.6 L (20-40) % [place] % (Auto) 4.5 (2-11) % Eos % (Auto) 1.4 (0-4) % Baso % (Auto) 0.3 (0-2) % Lymph # (Auto) 2.2 (1.2-4.9) X10*3/uL [place] # (Auto) 0.7 (0.1-1.2) X10*3/uL Eos # (Auto) 0.2 (0.0-0.4) X10*3/uL Baso # (Auto) 0.0 (0.0-0.2) X10*3/uL Abs Immat Gran (auto) 0.06 H (0.00-0.03) X10*3/uL Absolute Neuts (auto) 12.7 H (2.0-8.3) x10*3/uL Absolute Nucleated RBC 0.000 (0.0-0.012) X10*3/uL Nucleated RBC % (auto) 0.0 (0.0-0.2) /100WBC PT 11.8 (10.9-12.4) SEC INR 1.0 (0.9-1.1) Sodium 141 (135-145) mmol/L Potassium 4.3 (3.3-5.1) mmol/L Chloride 102 (96-108) mmol/L Carbon Dioxide 31 H (22-29) mmol/L Anion Gap 12 (12-20) BUN 26 H (9-16) mg/dL Creatinine 1.95 H (0.5-1.4) mg/dL Estim Creat Clear Calc 25.8 Estimated GFR 25 Random Glucose 85 (60-115) mg/dL Lactic Acid 1.6 (0.5-2.0) mmol/L Calcium 9.6 D (8.4-10.2) mg/dL Magnesium 1.9 (1.6-2.6) mg/dL Total Bilirubin 0.4 (0.0-1.0) mg/dL Direct Bilirubin 0.1 (0.0-0.5) mg/dL AST 24 (5-31) U/L ALT 16 (0-31) U/L Alkaline Phosphatase 50 (39-117) U/L Total Protein 7.5 (6.5-8.0) g/dL Albumin 4.2 (3.5-5.0) g/dL Lipase 17 (8-78) U/L Urine Color Urine Appearance Urine pH (5.0-9.0) Ur Specific [place] (1.005-1.025) Urine Protein (Neg-Trace) mg/dL Urine Glucose (UA) (Negative) mg/dL Urine Ketones (Negative) mg/dL Urine Blood (Negative) Urine Nitrite (Negative) Ur Leukocyte Esterase (Negative) Urine RBC (0-2) /HPF Urine WBC (0-5) /HPF Ur Squamous Epith Cells (0-2) /HPF Urine Bacteria (None Seen) Hyaline Casts (0-2) /LPF Stool Occult Blood POSITIVE (NEGATIVE) 05/08/25 Range/Units 10:33 WBC (4.8-10.8) X10*3/uL RBC (4.20-5.50) X10*6/uL Hgb (12.0-16.0) g/dl Hct (37.0-47.0) % MCV (80.0-98.0) fL MCH (27.0-33.0) pg MCHC (31.0-35.0) g/dl RDW (11.0-16.0) % Plt Count (160-400) X10*3/uL MPV (9.4-12.3) fL Immature Gran % (Auto) (0.0-0.4) % Neut % (Auto) (45-73) % Lymph % (Auto) (20-40) % [place] % (Auto) (2-11) % Eos % (Auto) (0-4) % Baso % (Auto) (0-2) % Lymph # (Auto) (1.2-4.9) X10*3/uL [place] # (Auto) (0.1-1.2) X10*3/uL Eos # (Auto) (0.0-0.4) X10*3/uL Baso # (Auto) (0.0-0.2) X10*3/uL Abs Immat Gran (auto) (0.00-0.03) X10*3/uL Absolute Neuts (auto) (2.0-8.3) x10*3/uL Absolute Nucleated RBC (0.0-0.012) X10*3/uL Nucleated RBC % (auto) (0.0-0.2) /100WBC PT (10.9-12.4) SEC INR (0.9-1.1) Sodium (135-145) mmol/L Potassium (3.3-5.1) mmol/L Chloride (96-108) mmol/L Carbon Dioxide (22-29) mmol/L Anion Gap (12-20) BUN (9-16) mg/dL Creatinine (0.5-1.4) mg/dL Estim Creat Clear Calc Estimated GFR Random Glucose (60-115) mg/dL Lactic Acid (0.5-2.0) mmol/L Calcium (8.4-10.2) mg/dL Magnesium (1.6-2.6) mg/dL Total Bilirubin (0.0-1.0) mg/dL Direct Bilirubin (0.0-0.5) mg/dL AST (5-31) U/L ALT (0-31) U/L Alkaline Phosphatase (39-117) U/L Total Protein (6.5-8.0) g/dL Albumin (3.5-5.0) g/dL Lipase (8-78) U/L Urine Color Yellow Urine Appearance Clear Urine pH 6.0 (5.0-9.0) Ur Specific [place] 1.010 (1.005-1.025) Urine Protein Negative (Neg-Trace) mg/dL Urine Glucose (UA) Negative (Negative) mg/dL Urine Ketones Negative (Negative) mg/dL Urine Blood Trace H (Negative) Urine Nitrite Negative (Negative) Ur Leukocyte Esterase Negative (Negative) Urine RBC 0-2 (0-2) /HPF Urine WBC 0-5 (0-5) /HPF Ur Squamous Epith Cells 3-5 (0-2) /HPF Urine Bacteria None Seen (None Seen) Hyaline Casts 0-2 (0-2) /LPF Stool Occult Blood (NEGATIVE) Independent Interpretation I performed an independent interpretation of an: CT Scan Radiology Impression Discussion of test interpretation with radiology: I have reviewed the radiologist's reading. External Record Review External record reviewed: Inpatient record, Office record, Outpatient record, Prior outpatient labs, Prior outpatient radiology, Primary care record and Outside ED record Tests considered The following testing was considered but not selected: As above Prescription Management I considered prescription management with: Pain Medication Chronic Conditions Patient?s care impacted by: Diabetes and Other Social Determinants Patient?s care significantly limited by Social Determinants of Health including: Other Social Determinant of Health Medications Administered Discontinued Medications Generic Name Dose Route Start Last Admin Trade Name Freq PRN Reason Stop Dose Admin Sodium Chloride 1,000 mls @ 999 mls/hr 05/08/25 08:00 05/08/25 11:30 Ns IV 05/08/25 09:00 Infused .Q1H1M RANGEL Infusion Piperacillin Sod/Tazobactam 50 mls @ 100 mls/hr 05/08/25 11:06 05/08/25 11:23 Sod 3.375 gm/ Sodium Chloride IV 05/08/25 11:35 100 mls/hr ONCE ONE Administration Morphine Sulfate 2 mg 05/08/25 07:56 05/08/25 08:43 Morphine Sulfate 4 Mg/Ml Cartridge IVPUSH 05/08/25 07:57 2 mg ONCE ONE Administration Protocol Critical Care Time Critical Care Time Critical Care Time: Yes Total Critical Care Time: 35 Attestation: I have personally provided critical care time exclusive of time spent on separately billable procedures. Time includes review of lab data, radiology results, discussion with consultants, and monitoring for potential decompensation. Intervention performed as documented. Discharge Plan Discharge Clinical Impression: BRBPR (bright red blood per rectum), Acute colitis Patient Disposition: Admitted As Inpatient Print Language: Cook Islander
[2025-05-08 09:12] LABS: MANUAL DIFF FLAG NO
[2025-05-08 09:13] LABS: Hematocrit 39.1 % (37.0-47.0); Hemoglobin 12.2 g/dl (12.0-16.0); Imm Gran Abs Auto 0.06 X10*3/uL (0.00-0.03); Imm Gran Pct Auto 0.4 % (0.0-0.4); Lymphocytes Absolute Auto 2.2 X10*3/uL (1.2-4.9); Mean Corpuscular HGB Conc 31.2 g/dl (31.0-35.0); Mean Corpuscular Hemoglobin 28.1 pg (27.0-33.0); Mean Corpuscular Volume 90.1 fL (80.0-98.0); NRBC Abs Auto 0.000 X10*3/uL (0.0-0.012); NRBC Pct Auto 0.0 /100WBC (0.0-0.2); Platelet Count 259 X10*3/uL (160-400); Red Blood Count 4.34 X10*6/uL (4.20-5.50); White Blood Count 15.9 X10*3/uL (4.8-10.8)
[2025-05-08 09:30] LABS: INTERNATIONAL NORM RATIO 1.0 (0.9-1.1); Prothrombin Time 11.8 SEC (10.9-12.4)
[2025-05-08 09:33] LABS: Alanine Aminotransferase 16 U/L (0-31); Albumin Level 4.2 g/dL (3.5-5.0); Alkaline Phosphatase 50 U/L (39-117); Anion Gap 12 (12-20); Aspartate Amino Transferase 24 U/L (5-31); Blood Urea Nitrogen 26 mg/dL (9-16); Calcium 9.6 mg/dL (8.4-10.2); Carbon Dioxide 31 mmol/L (22-29); Chloride 102 mmol/L (96-108); Creatinine Clr Calc Pharmacy 25.8; Estimated Glomerular Filt Rate 25; Lipase 17 U/L (8-78); Magnesium 1.9 mg/dL (1.6-2.6); Potassium 4.3 mmol/L (3.3-5.1); Sodium 141 mmol/L (135-145); Total Protein 7.5 g/dL (6.5-8.0)
[2025-05-08 10:39] LABS: Appearance Urine Clear; Glucose Urine UA Negative (Negative); PH 6.0 (5.0-9.0); Specific Gravity - Urine 1.010 (1.005-1.025); UMIC TRIGGER UACC YES
--- NOTE | 2025-05-08 13:39 | PHA.MEDREC ---
Addendum entered by Toña Leiva RPh 05/08/25 14:59: MED REC REVIEWED BY [facility]. Per Tangela, patient confirmed she takes hydroxyzine 25 mg daily (on scheduled). Original Note: Pharmacy Consult ? Medication Reconciliation Pharmacy has completed the medication reconciliation. Spoke with pt and she confirmed her medications. Pt confirmed she takes Trulicity once a week on and took it last 05/04, she takes her Gabapentin 300mg tab 1 BID; claims shows last filled 04/27 #28 for 28 days, she confirmed she now takes Citalopram 20mg daily, she confirmed she uses 20 units of Lantus in the morning and she takes her Novolog BIDAC per sliding scale instead of prescribed as prescribed TIDAC. Pt confirmed she took all her morning medications this Am; including her Insulins.
--- NOTE | 2025-05-08 16:14 | PM.CNGS ---
History of Present Illness Consult details Consult date: 05/08/25 Narrative: 75-year-old female with multiple medical problems including morbid obesity, diabetes, known chronic abdominal pain, previous multiple abdominal surgeries including cholecystectomy, appendectomy, laparotomy for small-bowel obstruction with lysis of the adhesions, here in the ER because of bright red blood per rectum. She says that she would notice this the past 36 hours. She says that this morning, she thought that this was on the toilet bowl and that she had this vague diffuse abdominal pain. She denies any nausea or vomiting. She is passing flatus. Review of her records show that she has been admitted multiple times the past few years for abdominal pain he had at 1 time in 2021, she had what appeared to be enteritis. Currently she says her pain has improved. She appears comfortable right now on examination. She denies any fever or chills. Review of Systems Constitutional: Constitutional: Denies chills and Denies fever(s) Cardiovascular: Cardiovascular: Denies chest pain, Denies dyspnea and Denies dyspnea on exertion Respiratory: Respiratory: Denies cough, Denies dyspnea and Denies dyspnea on exertion Gastrointestinal: Gastrointestinal: Reports hematochezia and Denies change in bowel habits Genitourinary: Genitourinary: Denies hematuria Musculoskeletal: Musculoskeletal: Denies back pain and Denies limited range of motion Neurologic: Denies focal weakness and Denies convulsions Psychiatric: Psychiatric: Denies depression and Denies mood swings PMFSH Past Medical History Medical History (Updated 05/10/25 @ 11:27 by Kendrick Guthrie MD) Exercise hypoxemia Depression, major, recurrent Dysuria Diabetes 1.5, managed as type 1 COPD (chronic obstructive pulmonary disease) Respiratory failure with hypoxia Urinary tract infection Hypoxemia Morbid obesity CKD (chronic kidney disease) Anemia Allergic rhinitis ALDO (obstructive sleep apnea) Obesity (BMI 30-39.9) Constipation due to opioid therapy Osteoarthritis of left knee Hx SBO Hyperlipidemia CPAP (continuous positive airway pressure) dependence History of adrenal adenoma Osteochondroma of left femur Arthritis Elevated cholesterol History of restless legs syndrome History of diverticulitis GERD (gastroesophageal reflux disease) Family History Family History Father HTN (hypertension) Diabetes mellitus Mother HTN (hypertension) Liver cancer Surgical History Surgical History H/O excision of mass History of oophorectomy History of cholecystectomy History of appendectomy History of arthroscopy of left knee History of partial colectomy Hx of cataract extraction H/O exploratory laparotomy H/O colonoscopy History of surgery History of hysterectomy Social History Social History 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: Other 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 Other:: ex Housing: Apartment Are you a primary medicare specialist to a significant other at home: No Do you presently have visiting nurse or other home services: No Alcohol intake: never Comment: PT SLEEPING Patient Tobacco Use Status: Never used Tobacco Smoked in Last 30 Days: No e-Cigarette/Vaping Use: Never Used Second Hand Smoke Exposure: No Use of substances other than those prescribed or required for medical reasons: No Currently Displaying Signs/Symptoms of Drug Intoxication Withdrawal: No Have you been hit, kicked, punched, or otherwise hurt by someone within the past year? If so, by whom?: No Do you feel safe in your current relationship?: Yes Is there a partner from a previous relationship who is making you feel unsafe now?: No Are you made to feel afraid or neglected: No Advance Directives: Yes Advance Directives on File: Yes Advance Directives Date on File: 10/22/23 Do you have a plan to hurt others: No Plan Recently lost weight without trying: No Eating poorly because of decreased appetite: No Nutrition Risks: No Nutritional Risk Patient : No : No Poor oral hygiene: No service: No Current occupational status: retired Cognitive needs: No Hearing needs: No Vision needs: No Meds Allergies Allergy/AdvReac Type Severity Reaction Status Date / Time adhesive tape (ADHESIVE TAPE) Allergy Intermediate RASH Verified 05/08/25 07:44 environmental allergies Allergy Mild URI Verified 05/08/25 07:44 trimethobenzamide (From Allergy Mild NAUSEA Verified 05/08/25 07:44 TIGAN) NSAIDS (Non-Steroidal AdvReac Mild Nephropathy Verified 05/08/25 07:44 Anti-Inflamma Home Medications ?Medication ?Instructions ?Recorded ?Confirmed ?Last Taken ?Type bupropion HCl 150 mg 24 hr tablet, 150 mg PO DAILY 04/25/20 05/08/25 05/08/25 History extended release oxygen-air delivery systems ##1 04/25/20 02/20/25 11/22/21 History aspirin 81 mg chewable tablet 81 mg PO DAILY 10/01/21 05/08/25 05/08/25 History hydroxyzine pamoate 25 mg capsule 25 mg PO DAILY 08/13/22 05/08/25 05/08/25 History albuterol sulfate 90 mcg/actuation 2 puff inhalation Q4H PRN 05/08/25 05/08/25 Unknown History aerosol inhaler Shortness Of Breath Or Wheezing cholecalciferol (vitamin D3) 125 125 mcg PO DAILY 05/08/25 05/08/25 05/08/25 History mcg (5,000 unit) capsule citalopram 20 mg tablet 20 mg PO DAILY 05/08/25 05/08/25 05/08/25 History dulaglutide 1.5 mg/0.5 mL 1.5 mg subcut TH 05/08/25 05/08/25 05/04/25 History subcutaneous pen injector (Trulicity) gabapentin 300 mg capsule 300 mg PO BID 05/08/25 05/08/25 05/08/25 History insulin aspart U-100 100 unit/mL See Protocol subcut BIDAC 05/08/25 05/08/25 05/08/25 History (3 mL) subcutaneous pen (Novolog FlexPen U-100 Insulin aspart) [id number] 18 mg-FA 400 1 tab PO DAILY 05/08/25 05/08/25 05/08/25 History mcg-calcium 500 mg-vit K 50 mcg tablet (Women's Multivitamin) pramipexole 0.5 mg tablet 0.5 mg PO TID 05/08/25 05/08/25 05/08/25 History trazodone 150 mg tablet 150 mg PO BEDTIME PRN insomnia 05/08/25 05/08/25 05/07/25 History Physical Exam Vital Signs: Vital Signs: Last Vital Signs Temp 97.9 F 05/08/25 14:09 Pulse 84 05/08/25 14:09 Resp 16 05/08/25 14:09 BP 109/47 L 05/08/25 14:09 Pulse Ox 94 05/08/25 14:09 O2 Del Method Room Air 05/08/25 14:09 BMI result Body Mass Index 41.2 Const: Other: Morbidly obese, answers questions well General: comfortable and no acute distress Orientation/consciousness: patient oriented x3 Neck: Neck: Yes no lymphadenopathy Resp: Auscultation: clear to auscultation bilaterally Cardio: Rhythm: regular rhythm GI: Other: Abdominal exam soft, with mild diffuse tenderness, no guarding or rebound Palpation (GI): Soft to palpation, Tenderness to palpation present (GI) and no guarding Neuro: General: patient oriented x3 Results Labs 05/10/25 10:03 05/10/25 10:03 Labs: Abnormal lab results 05/08/25 05/08/25 Range/Units 09:08 10:33 WBC 15.9 H (4.8-10.8) X10*3/uL Neut % (Auto) 79.8 H (45-73) % Lymph % (Auto) 13.6 L (20-40) % Abs Immat Gran (auto) 0.06 H (0.00-0.03) X10*3/uL Absolute Neuts (auto) 12.7 H (2.0-8.3) x10*3/uL Carbon Dioxide 31 H (22-29) mmol/L BUN 26 H (9-16) mg/dL Creatinine 1.95 H (0.5-1.4) mg/dL Urine Blood Trace H (Negative) Short CBC 05/08/25 Range/Units 09:08 WBC 15.9 H (4.8-10.8) X10*3/uL Hgb 12.2 (12.0-16.0) g/dl Hct 39.1 (37.0-47.0) % Plt Count 259 (160-400) X10*3/uL [facility] 05/08/25 09:08 Sodium 141 Potassium 4.3 Chloride 102 Carbon Dioxide 31 H BUN 26 H Creatinine 1.95 H Calcium 9.6 D Liver Function 05/08/25 Range/Units 09:08 Total Bilirubin 0.4 (0.0-1.0) mg/dL Direct Bilirubin 0.1 (0.0-0.5) mg/dL AST 24 (5-31) U/L ALT 16 (0-31) U/L Alkaline Phosphatase 50 (39-117) U/L Albumin 4.2 (3.5-5.0) g/dL Urine 10/27/25 Range/Units 10:33 Urine Color Yellow Urine Appearance Clear Urine pH 6.0 (5.0-9.0) Ur Specific [place] 1.010 (1.005-1.025) Urine Protein Negative (Neg-Trace) mg/dL Urine Glucose (UA) Negative (Negative) mg/dL All other labs normal. FINDINGS: Inadequate evaluation of the intra-abdominal solid organs and vascular structures due to lack of IV contrast. Numerous diverticula in the left hemicolon with a segmental area of intestinal wall thickening and pericolonic edema pattern extending from the splenic colonic flexure to the distal descending colon. No intestinal obstruction pattern. No pneumatosis intestinalis. No pneumoperitoneum. No ascites. No gross fluid collections in the peritoneal cavity. Abundant stool large intestine. Nonobstructing nephrolithiasis, left kidney. No hydronephrosis in either kidney. Calcified plaques abdominal aorta wall and iliac arteries without gross aneurysm. No acute airspace disease. Atelectasis lung bases. Liver measures 17 cm. Spleen measures 8 cm. No nodular lesions in the adrenal glands. Absent gallbladder. Common bile duct measures 8 mm. Sutures at the rectosigmoid colon junction. Small fat-containing periumbilical hernia. Multilevel thoracolumbar spondylosis. No gross acute fracture. Degenerative changes in the sacroiliac joints, coxofemoral joints and symphysis pubis. Small hiatal hernia. CT/CT abdomen pelvis wo IV con IMPRESSION: Concerning acute colitis, left hemicolon. Probably related to diverticulitis although ischemic colitis cannot be entirely excluded. Fleischner guidelines were followed. Imaging Abdomen CT scan report/results: report reviewed and image reviewed CT scan - pelvis: report reviewed and image reviewed Assessment and Plan (1) Abdominal pain: Qualifiers: Abdominal location: upper abdomen, unspecified Qualified Code(s): R10.10 - Upper abdominal pain, unspecified Status: Acute [age] year old female with multiple medical problems including morbid obesity, chronic kidney disease, diabetes, here in the ER because of the mild pain and passage of bright blood per rectum. I have reviewed her CAT scan and this suggest some form of colitis on the left colon and splenic flexure possibly ischemic in origin. Her abdominal exam is very benign currently. He is stable vital signs. She does not present with a acidosis. Her lactate is normal Hemoglobin is stable as well but this should be followed. It may be best to consult Gastroenterology for possible need for colonoscopy. She should be on bowel rest for now. We will follow along while she is in the hospital. Procedures Date of Service Date of Service: 05/10/25
--- NOTE | 2025-05-08 16:30 | PM.IMHP ---
History of Present Illness Date of Service: 05/08/25 Chief Complaint: abd pain 75-year-old female with a past medical history of COPD, diabetes, CKD, ALDO, GERD, s/p appendectomy, cholecystectomy, partial colectomy, presenting to the ED complaining of diffuse abdominal pain since this morning. She also reported blood when wiping. She denied nausea or vomiting. No fever, chills, recent travel. Abd CT concering for colitis. She had no fever with mild Leukocytosis. Creat noted to be 1.95 close to baseline. She reported still having an appetite. She was given zosyn, Morphine, IV fluids. She will be admitted for management of colitis Review of Systems Review of Systems: Denies any recent fever chills or decrease in appetite respiratory denies any shortness of breath or cough cardiovascular Denies chest pain gastrointestinal See HPI genitourinary denies any dysuria frequency or hematuria musculoskeletal denies any joint pain or swelling neuropsych denies any weakness or seizures all other systems reviewed are negative [facility] Medical History (Updated 05/08/25 @ 16:33 by Rebecca Calloway NP) Exercise hypoxemia Depression, major, recurrent Dysuria Diabetes 1.5, managed as type 1 COPD (chronic obstructive pulmonary disease) Respiratory failure with hypoxia Urinary tract infection Hypoxemia Morbid obesity CKD (chronic kidney disease) Anemia Allergic rhinitis ALDO (obstructive sleep apnea) Obesity (BMI 30-39.9) Constipation due to opioid therapy Osteoarthritis of left knee Hx SBO Hyperlipidemia CPAP (continuous positive airway pressure) dependence History of adrenal adenoma Osteochondroma of left femur Arthritis Elevated cholesterol History of restless legs syndrome History of diverticulitis GERD (gastroesophageal reflux disease) Family History Father HTN (hypertension) Diabetes mellitus Mother HTN (hypertension) Liver cancer Surgical History H/O excision of mass History of oophorectomy History of cholecystectomy History of appendectomy History of arthroscopy of left knee History of partial colectomy Hx of cataract extraction H/O exploratory laparotomy H/O colonoscopy History of surgery History of hysterectomy Social History 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: Other 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 Other:: ex- has been staying over Housing: House Are you a primary career specialist to a significant other at home: No Do you presently have visiting nurse or other home services: Yes Alcohol intake: never Comment: PT SLEEPING Patient Tobacco Use Status: Never used Tobacco Smoked in Last 30 Days: No e-Cigarette/Vaping Use: Never Used Second Hand Smoke Exposure: No Use of substances other than those prescribed or required for medical reasons: No Advance Directives: Yes Advance Directives on File: Yes Advance Directives Date on File: 10/22/23 service: No Current occupational status: retired Cognitive needs: No Hearing needs: No Vision needs: No Meds Allergies Allergy/AdvReac Type Severity Reaction Status Date / Time adhesive tape (ADHESIVE TAPE) Allergy Intermediate RASH Verified 05/08/25 07:44 environmental allergies Allergy Mild URI Verified 05/08/25 07:44 trimethobenzamide (From Allergy Mild NAUSEA Verified 05/08/25 07:44 TIGAN) NSAIDS (Non-Steroidal AdvReac Mild Nephropathy Verified 05/08/25 07:44 Anti-Inflamma Home Medications ?Medication ?Instructions ?Recorded ?Confirmed ?Last Taken ?Type bupropion HCl 150 mg 24 hr tablet, 150 mg PO DAILY 04/25/20 05/08/25 05/08/25 History extended release oxygen-air delivery systems ##1 04/25/20 02/20/25 11/22/21 History aspirin 81 mg chewable tablet 81 mg PO DAILY 10/01/21 05/08/25 05/08/25 History hydroxyzine pamoate 25 mg capsule 25 mg PO DAILY 08/13/22 05/08/25 05/08/25 History albuterol sulfate 90 mcg/actuation 2 puff inhalation Q4H PRN 05/08/25 05/08/25 Unknown History aerosol inhaler Shortness Of Breath Or Wheezing cholecalciferol (vitamin D3) 125 125 mcg PO DAILY 05/08/25 05/08/25 05/08/25 History mcg (5,000 unit) capsule citalopram 20 mg tablet 20 mg PO DAILY 05/08/25 05/08/25 05/08/25 History dulaglutide 1.5 mg/0.5 mL 1.5 mg subcut TH 05/08/25 05/08/25 05/04/25 History subcutaneous pen injector (Trulicity) gabapentin 300 mg capsule 300 mg PO BID 05/08/25 05/08/2505/08/25 History insulin aspart U-100 100 unit/mL See Protocol subcut BIDAC 05/08/25 05/08/25 05/08/25 History (3 mL) subcutaneous pen (Novolog FlexPen U-100 Insulin aspart) [id number] 18 mg-FA 400 1 tab PO DAILY 05/08/25 05/08/25 05/08/25 History mcg-calcium 500 mg-vit K 50 mcg tablet (Women's Multivitamin) pramipexole 0.5 mg tablet 0.5 mg PO TID 05/08/25 05/08/25 05/08/25 History trazodone 150 mg tablet 150 mg PO BEDTIME PRN insomnia 05/08/25 05/08/25 05/07/25 History Physical Exam Vital Signs and Narrative: Vital Signs: Last Vital Signs Temp 97.9 F 05/08/25 14:09 Pulse 84 05/08/25 16:15 Resp 16 05/08/25 16:15 BP 111/41 L 05/08/25 16:15 Pulse Ox 95 05/08/25 16:15 O2 Del Method Nasal Cannula 05/08/25 16:15 O2 Flow Rate 2 05/08/25 16:15 BMI result Body Mass Index 41.2 Appearing in no acute distress head is normocephalic atraumatic eyes pupils are PERRLA sclera is anicteric mouth throat mucous membranes are intact and moist neck is supple no lymphadenopathy, no JVD noted lung sounds are clear to auscultation heart regular rate rhythm, clear S1, S2 positive bowel sounds, abdomen is soft, diffuse tenderness on palpation neuro patient is alert x3, no focal deficits Results Labs 05/08/25 09:08 05/08/25 09:08 Labs: Laboratory Results - last 24 hr 05/08/25 05/08/25 05/08/25 08:15 09:08 10:08 MCV 90.1 MCH 28.1 MCHC 31.2 RDW 13.2 Plt Count 259 MPV 11.3 Immature Gran % (Auto) 0.4 Neut % (Auto) 79.8 H Lymph % (Auto) 13.6 L [place] % (Auto) 4.5 Eos % (Auto) 1.4 Baso % (Auto) 0.3 Lymph # (Auto) 2.2 [place] # (Auto) 0.7 Eos # (Auto) 0.2 Baso # (Auto) 0.0 Abs Immat Gran (auto) 0.06 H Absolute Neuts (auto) 12.7 H Absolute Nucleated RBC 0.000 Nucleated RBC % (auto) 0.0 PT 11.8 INR 1.0 Anion Gap 12 Estim Creat Clear Calc 25.8 Estimated GFR 25 Random Glucose 85 Lactic Acid 1.6 Calcium 9.6 D Magnesium 1.9 Total Bilirubin 0.4 Direct Bilirubin 0.1 AST 24 ALT 16 Alkaline Phosphatase 50 Total Protein 7.5 Albumin 4.2 Lipase 17 Urine Color Urine Appearance Urine pH Ur Specific [place] Urine Protein Urine Glucose (UA) Urine Ketones Urine Blood Urine Nitrite Ur Leukocyte Esterase Urine RBC Urine WBC Ur Squamous Epith Cells Urine Bacteria Hyaline Casts Stool Occult Blood POSITIVE Blood Type Antibody Screen 05/08/25 05/08/25 10:33 13:43 MCV MCH MCHC RDW Plt Count MPV Immature Gran % (Auto) Neut % (Auto) Lymph % (Auto) [place] % (Auto) Eos % (Auto) Baso % (Auto) Lymph # (Auto) [place] # (Auto) Eos # (Auto) Baso # (Auto) Abs Immat Gran (auto) Absolute Neuts (auto) Absolute Nucleated RBC Nucleated RBC % (auto) PT INR Anion Gap Estim Creat Clear Calc Estimated GFR Random Glucose Lactic Acid Calcium Magnesium Total Bilirubin Direct Bilirubin AST ALT Alkaline Phosphatase Total Protein Albumin Lipase Urine Color Yellow Urine Appearance Clear Urine pH 6.0 Ur Specific [place] 1.010 Urine Protein Negative Urine Glucose (UA) Negative Urine Ketones Negative Urine Blood Trace H Urine Nitrite Negative Ur Leukocyte Esterase Negative Urine RBC 0-2 Urine WBC 0-5 Ur Squamous Epith Cells 3-5 Urine Bacteria None Seen Hyaline Casts 0-2 Stool Occult Blood Blood Type A Positive Antibody Screen NEGATIVE Imaging Radiologist's Impressions: Impressions Abdomen/Pelvis CT 05/08/25 09:52 IMPRESSION: Concerning acute colitis, left hemicolon. Probably related to diverticulitis although ischemic colitis cannot be entirely excluded. Fleischner guidelines were followed. Electronically signed by: Thomas Serna MD 05/08/2025 10:44 AM EDT Assessment and Plan (1) USP (current) use of insulin: Status: Acute Plan 75 year old women admitted with abdominal pain appearing to be from colitis Colitis Abdominal CT showing acute colitis to left hemicolon likely related to diverticulitis We will treat with Zosyn Pain management GI consultation Clear liquid diet for now Leukocytosis WBC 05/08/25 Hypertension stable BP continue lisinopril Continue lisinopril Diabetes mellitus 1.5 Sliding scale Continue Lantus Chronic kidney disease stage 3 baseline History of COPD with chronic respiratory failure No exacerbation Continue albuterol On baseline 2 L of oxygen Mental health Continue home medications Coronary artery disease Continue aspirin and statin Restless leg syndrome Continue allopurinol DVT prophylaxis with heparin Full code Quality Stroke Does the patient have a stroke diagnosis?: No VTE Prior VTE?: No VTE Risk Level:: Medical - moderate - high VTE Device Contraindication: Treatment Not Indicated VTE Drug Contraindication: N/A - Med Ordered
--- NOTE | 2025-05-08 17:37 | PC.NURSE ---
75 yo female presented with generalized abd pain. CT concerning for colitis. Admit for antibiotics and pain management. Pt alert and oriented. On 2L NC currently, states uses it at home as frequently as I need it . Vitals stable. Uses bedside commode independently. PIV in place. PRN Morphine given at 1722 for 7/10 pain. Currently on ED stretcher.
[2025-05-08] MEDS: 0.9 % Sodium Chloride Flush 3 ML SYRINGE IVFLUSH (20:22)
[2025-05-08 20:36] LABS: Glucose, Whole Blood 156 mg/dL (60-115)
[2025-05-09 03:10] VITALS: BP 120/58; PULSE 76; RESP 18; TEMP 36.7; O2SAT 98
[2025-05-09 05:56] LABS: Hematocrit 33.8 % (37.0-47.0); Hemoglobin 10.2 g/dl (12.0-16.0); Mean Corpuscular HGB Conc 30.2 g/dl (31.0-35.0); Mean Corpuscular Hemoglobin 27.9 pg (27.0-33.0); Mean Corpuscular Volume 92.6 fL (80.0-98.0); NRBC Abs Auto 0.000 X10*3/uL (0.0-0.012); NRBC Pct Auto 0.0 /100WBC (0.0-0.2); Platelet Count 231 X10*3/uL (160-400); Red Blood Count 3.65 X10*6/uL (4.20-5.50); White Blood Count 12.0 X10*3/uL (4.8-10.8)
[2025-05-09 06:26] LABS: Alanine Aminotransferase 50 U/L (0-31); Albumin Level 3.4 g/dL (3.5-5.0); Alkaline Phosphatase 69 U/L (39-117); Anion Gap 14 (12-20); Aspartate Amino Transferase 86 U/L (5-31); Blood Urea Nitrogen 29 mg/dL (9-16); Calcium 8.5 mg/dL (8.4-10.2); Carbon Dioxide 31 mmol/L (22-29); Chloride 102 mmol/L (96-108); Creatinine Clr Calc Pharmacy 20.6; Estimated Glomerular Filt Rate 19; Potassium 5.3 mmol/L (3.3-5.1); Sodium 142 mmol/L (135-145); Total Protein 6.0 g/dL (6.5-8.0)
[2025-05-09 07:16] VITALS: BP 116/51; PULSE 83; RESP 18; TEMP 36.6
[2025-05-09 07:23] LABS: Glucose, Whole Blood 135 mg/dL (60-115)
--- NOTE | 2025-05-09 08:06 | P.PNGS_ITS ---
Subjective Subjective Date of Service: 05/09/25 <Stan Reddy PA-C - Last Filed: 05/09/25 08:16> 05/09/25 <Juan Quintanilla MD - Last Filed: 05/09/25 12:40> Interval history: doing okay this morning, some increased vague abdominal pain today. Also complaining of back pain. Denies nausea/vomiting. denies passing flatus, no further BMS. toelrating CLD <Stan Reddy PA-C - Last Filed: 05/09/25 08:16> Physical Exam 2 Vital Signs: Vital Signs: Last Vital Signs Temp 97.8 F 05/09/25 07:16 Pulse 83 05/09/25 07:16 Resp 18 05/09/25 07:16 BP 116/51 L 05/09/25 07:16 Pulse Ox 98 05/09/25 03:10 O2 Del Method Nasal Cannula 05/09/25 07:16 O2 Flow Rate 2 05/09/25 07:16 BMI result Body Mass Index 41.2 <Stan Reddy PA-C - Last Filed: 05/09/25 08:16> Const: General: comfortable and no acute distress <Stan Reddy PA-C - Last Filed: 05/09/25 08:16> Orientation/consciousness: patient oriented x3 <DONNA Benoit Last Filed: 05/09/25 08:16> GI: Inspection: No distended and Yes obesity <Stan Reddy PA-C - Last Filed: 05/09/25 08:16> Palpation (GI): Soft to palpation and Tenderness to palpation present (GI) (generalized) <Stan Reddy PA-C - Last Filed: 05/09/25 08:16> Neuro: General: patient oriented x3 <DONNA Benoit Last Filed: 05/09/25 08:16> Objective Data Active Medications Acetaminophen (Acetaminophen 325 Mg Tablet) 650 mg PO Q6H PRN PRN Reason: Pain, Mild 1-3,fever,headache Albuterol Sulfate (Albuterol Sulfate 90 Mcg 8 Gm Inhaler) 2 puff INHALE Q4H PRN PRN Reason: Shortness Of Breath Or Wheezing Aspirin (Aspirin 81 Mg Tab.Chew) 81 mg PO DAILY [facility] Atorvastatin Calcium (Atorvastatin Calcium 80 Mg Tablet) 80 mg PO DAILY [facility] Bupropion HCl (Bupropion Hcl Xl 150 Mg Tab.Er.24h) 150 mg PO DAILY [facility] Calcium Carbonate (Calcium Carbonate 750 Mg Tab.Chew) 750 mg PO Q4H PRN PRN Reason: Heartburn Dextrose (Dextrose 50 % 25 Gm/50 Ml Syringe) 25 gm IVPUSH Q15M PRN; Protocol PRN Reason: per Hypoglycemia Standing Ord. Escitalopram Oxalate (Escitalopram Oxalate 10 Mg Tablet) 10 mg PO DAILY [facility] Gabapentin (Gabapentin 300 Mg Capsule) 300 mg PO BID [facility] Last Admin: 05/08/25 20:22 Dose: 300 mg Documented By: TRINIDAD Glucose (Glucose Gel 15 Gm Gel..Gram.) 15 gm PO Q15M PRN; Protocol PRN Reason: per Hypoglycemia Standing Ord. Heparin Sodium (Porcine) (Heparin Sodium,Porcine 5,000 Unit/Ml Vial) 5,000 unit SUBCUT Q12H [facility] Last Admin: 05/09/25 04:14 Dose: 5,000 unit Documented By: PADMA Hydroxyzine HCl (Hydroxyzine Hcl 25 Mg Tablet) 25 mg PO DAILY [facility] Piperacillin Sod/Tazobactam (Sod 3.375 gm/ Sodium Chloride) 50 mls @ 100 mls/hr IV Q8H [facility] Last Infusion: 05/09/25 04:41 Dose: Infused Documented By: PADMA Insulin Glargine (Insulin Glargine,Hum.Rec.Anlog 100 Unit/Ml 10 Ml Vial) 20 unit SUBCUT DAILY [facility] Insulin Human Lispro (Insulin Lispro 100 Unit/Ml 3 Ml Vial) 0 unit SUBCUT QIDACHS [facility]; Protocol Last Admin: 05/09/25 07:34 Dose: Not Given Documented By: MONTSERRAT Non-Admin Reason: No Insulin Coverage Lisinopril (Lisinopril 20 Mg Tablet) 20 mg PO DAILY [facility]; Protocol Magnesium Hydroxide (Milk Of Magnesia 30 Ml Oral.Susp) 30 ml PO DAILY PRN PRN Reason: Constipation Melatonin (Melatonin 3 Mg Tablet) 6 mg PO BEDTIME PRN PRN Reason: Insomnia Montelukast Sodium (Montelukast Sodium 10 Mg Tablet) 10 mg PO DAILY [facility] Morphine Sulfate (Morphine Sulfate 4 Mg/Ml Cartridge) 2 mg IVPUSH Q4H PRN; Protocol PRN Reason: Pain, Severe (Pain Scale 7-10) Last Admin: 05/09/25 01:16 Dose: 2 mg Documented By: PADMA Ondansetron HCl (Ondansetron Hcl 4 Mg/2 Ml Vial) 4 mg IVPUSH Q8H PRN PRN Reason: Nausea and Vomiting Oxycodone HCl (Oxycodone Hcl Immed Release 5 Mg Tablet) 5 mg PO Q6H PRN PRN Reason: Pain, Severe (Pain Scale 7-10) Pramipexole Dihydrochloride (Pramipexole Di-Hcl 0.25 Mg Tablet) 0.5 mg PO TID [facility] Last Admin: 05/08/25 20:22 Dose: 0.5 mg Documented By: TRINIDAD Ropinirole HCl (Ropinirole Hcl 2 Mg Tablet) 2 mg PO BID [facility] Last Admin: 05/08/25 20:22 Dose: 2 mg Documented By: TRINIDAD Sodium Chloride (0.9 % Sodium Chloride Flush 3 Ml Syringe) 3 ml IVFLUSH QSHIFT [facility] Last Admin: 05/08/25 20:22 Dose: 3 ml Documented By: TRINIDAD Trazodone HCl (Trazodone Hcl 50 Mg Tablet) 150 mg PO BEDTIME PRN PRN Reason: Insomnia Vitamin D (Cholecalciferol (Vitamin D3) 25 Mcg Tablet) 125 mcg PO DAILY [facility] <Stan Reddy PA-C - Last Filed: 05/09/25 08:16> Labs CBC & Chem 7: 05/09/25 05:33 05/09/25 05:33 <Stan Reddy PA-C - Last Filed: 05/09/25 08:16> Labs: Laboratory Results - last 24 hr 05/08/25 05/08/25 05/08/25 08:15 09:08 10:08 MCV 90.1 MCH 28.1 MCHC 31.2 RDW 13.2 Plt Count 259 MPV 11.3 Immature Gran % (Auto) 0.4 Neut % (Auto) 79.8 H Lymph % (Auto) 13.6 L [place] % (Auto) 4.5 Eos % (Auto) 1.4 Baso % (Auto) 0.3 Lymph # (Auto) 2.2 [place] # (Auto) 0.7 Eos # (Auto) 0.2 Baso # (Auto) 0.0 Abs Immat Gran (auto) 0.06 H Absolute Neuts (auto) 12.7 H Absolute Nucleated RBC 0.000 Nucleated RBC % (auto) 0.0 PT 11.8 INR 1.0 Anion Gap 12 Estim Creat Clear Calc 25.8 Estimated GFR 25 POC Glucose Random Glucose 85 Lactic Acid 1.6 Calcium 9.6 D Magnesium 1.9 Total Bilirubin 0.4 Direct Bilirubin 0.1 AST 24 ALT 16 Alkaline Phosphatase 50 Total Protein 7.5 Albumin 4.2 Lipase 17 Urine Color Urine Appearance Urine pH Ur Specific [place] Urine Protein Urine Glucose (UA) Urine Ketones Urine Blood Urine Nitrite Ur Leukocyte Esterase Urine RBC Urine WBC Ur Squamous Epith Cells Urine Bacteria Hyaline Casts Stool Occult Blood POSITIVE Blood Type Antibody Screen 05/08/25 05/08/25 05/08/25 10:33 13:43 20:33 MCV MCH MCHC RDW Plt Count MPV Immature Gran % (Auto) Neut % (Auto) Lymph % (Auto) [place] % (Auto) Eos % (Auto) Baso % (Auto) Lymph # (Auto) [place] # (Auto) Eos # (Auto) Baso # (Auto) Abs Immat Gran (auto) Absolute Neuts (auto) Absolute Nucleated RBC Nucleated RBC % (auto) PT INR Anion Gap Estim Creat Clear Calc Estimated GFR POC Glucose 156 H Random Glucose Lactic Acid Calcium Magnesium Total Bilirubin Direct Bilirubin AST ALT Alkaline Phosphatase Total Protein Albumin Lipase Urine Color Yellow Urine Appearance Clear Urine pH 6.0 Ur Specific [place] 1.010 Urine Protein Negative Urine Glucose (UA) Negative Urine Ketones Negative Urine Blood Trace H Urine Nitrite Negative Ur Leukocyte Esterase Negative Urine RBC 0-2 Urine WBC 0-5 Ur Squamous Epith Cells 3-5 Urine Bacteria None Seen Hyaline Casts 0-2 Stool Occult Blood Blood Type A Positive Antibody Screen NEGATIVE 05/09/25 05/09/25 05:33 07:16 MCV 92.6 MCH 27.9 MCHC 30.2 L RDW 13.4 Plt Count 231 MPV 11.6 Immature Gran % (Auto) Neut % (Auto) Lymph % (Auto) [place] % (Auto) Eos % (Auto) Baso % (Auto) Lymph # (Auto) [place] # (Auto) Eos # (Auto) Baso # (Auto) Abs Immat Gran (auto) Absolute Neuts (auto) Absolute Nucleated RBC 0.000 Nucleated RBC % (auto) 0.0 PT INR Anion Gap 14 Estim Creat Clear Calc 20.6 Estimated GFR 19 POC Glucose 135 H Random Glucose 142 H Lactic Acid Calcium 8.5 D Magnesium Total Bilirubin 1.4 H Direct Bilirubin AST 86 H ALT 50 H Alkaline Phosphatase 69 Total Protein 6.0 L Albumin 3.4 L Lipase Urine Color Urine Appearance Urine pH Ur Specific [place] Urine Protein Urine Glucose (UA) Urine Ketones Urine Blood Urine Nitrite Ur Leukocyte Esterase Urine RBC Urine WBC Ur Squamous Epith Cells Urine Bacteria Hyaline Casts Stool Occult Blood Blood Type Antibody Screen <Stan Reddy PA-C - Last Filed: 05/09/25 08:16> Procedures Date of Service Date of Service: 05/09/25 <Stan Reddy PA-C - Last Filed: 05/09/25 08:16> 05/09/25 <Juan Quintanilla MD - Last Filed: 05/09/25 12:40> Progress Note: A&P Assessment and plan (1) Colitis: Status: Acute <Stan Reddy PA-C - Last Filed: 05/09/25 08:16> Assessment and Plan: Describes some vague upper abdominal pain No vomiting No fever No further episodes of blood per rectum Denies recall of flatus recently Abdomen is soft and benign She looks well and is nontoxic looking GI consult Okay to stay on clear liquids for now We will follow up Seen and examined independently <Juan Quintanilla MD - Last Filed: 05/09/25 12:40> (2) BRBPR (bright red blood per rectum): Status: Acute <Stan Reddy PA-C - Last Filed: 05/09/25 08:16> Assessment and Plan: 75 year old female admitted for abdominal pain, BRBPR, likely colitis, possibly ischemic in nature. Today feeling some increased pain throughout the abdomen, back pain as well. She is denying nausea, vomiting. Denies passing gas or stools. Currently on CLD, tolerating currently. mild decreased in H/h now 10.2/33.8, possibly due to GI loss + dilution from fluids. will continue to follow closely. abdomen exam is soft, tender throughout. non distended. Multiple scars from previous surgeries. no current plan for surgical intervention, recommend flex sig to evaluate the colon. Gi consult pending. Continue bowel rest IVF trend H/h GI consult pending. <Stan Reddy PA-C - Last Filed: 05/09/25 08:16> Time Spent With Patient Time: Total time managing care of this patient today ____ minutes. <Stan Reddy PA-C - Last Filed: 05/09/25 08:16> Quality Stroke Does the patient have a stroke diagnosis?: No <Stan Reddy PA-C - Last Filed: 05/09/25 08:16> VTE Prior VTE?: No <Stan Reddy PA-C - Last Filed: 05/09/25 08:16> VTE Risk Level:: Medical - moderate - high <Stan Reddy PA-C - Last Filed: 05/09/25 08:16> VTE Device Contraindication: Treatment Not Indicated <Stan Reddy PA-C - Last Filed: 05/09/25 08:16> VTE Drug Contraindication: N/A - Med Ordered <Stan Reddy PA-C - Last Filed: 05/09/25 08:16>
--- NOTE | 2025-05-09 08:32 | PM.GICN ---
History of Present Illness Data of Consult Service Date: 05/09/25 Primary Care Provider: Shelbi Perez MD HPI Reason for consult: colitis 75 YF with PMH of anemia, CKD, COPD (on home O2 of 2L/m by [place]), diabetes, GERD, history of diverticulitis s/p sigmoid resection for diverticulitis,appendectomy, cholecystectomy and an ex lap in 2018 for SBO with lysis of adhesions, HLD, depression anxiety, restless leg syndrome who I am seeing for assessment for colitis. Patient noted 10/10 crampy lower abdominal pain which radiated across the whole abdomen, she also noted constipation and difficulty passig stool or gas. the pain was not releived by passing gas and no worsening factors. She noted a small amount of blood. she denies n/v, no fevers. no melena and no urine symptoms. she says this si similar to attacks she had few months ago but the pain was worse this time. Today she feels improved and is tolerating liquid diet easily. Last EGD/[place] 2019: Tubular adenomas removed Diverticulosis anastomosis noted Review of Systems Review of Systems: Constitutional : No Weight loss, No Fever, No Chills ENT/Mouth : No sore throat, No Rhinorrhea Eyes: No Swelling, No Redness Cardiovascular : No Chest Pain, No SOB, No Edema Respiratory : No Cough, No Sputum, No Wheezing Gastrointestinal : see HPI Genitourinary : NO Dysuria, No Urinary Frequency, No Hematuria, No Urgency Musculoskeletal : no joint pain, No Myalgias, No Joint Swelling Skin : No Skin Lesions, No rash Neuro : No Weakness, No Numbness, No Dizziness, No Headache Psych : No Anxiety/Panic, No Depression Heme/Lymph: No Bruising, No Lymphadenopathy Endocrine : No Polyuria, No Polydipsia All other systems reviewed and are negative. [facility] Past Medical History Medical History (Updated 05/10/25 @ 11:27 by Kendrick Guthrie MD) Exercise hypoxemia Depression, major, recurrent Dysuria Diabetes 1.5, managed as type 1 COPD (chronic obstructive pulmonary disease) Respiratory failure with hypoxia Urinary tract infection Hypoxemia Morbid obesity CKD (chronic kidney disease) Anemia Allergic rhinitis ALDO (obstructive sleep apnea) Obesity (BMI 30-39.9) Constipation due to opioid therapy Osteoarthritis of left knee Hx SBO Hyperlipidemia CPAP (continuous positive airway pressure) dependence History of adrenal adenoma Osteochondroma of left femur Arthritis Elevated cholesterol History of restless legs syndrome History of diverticulitis GERD (gastroesophageal reflux disease) Family History Family History Father HTN (hypertension) Diabetes mellitus Mother HTN (hypertension) Liver cancer Surgical History Surgical History H/O excision of mass History of oophorectomy History of cholecystectomy History of appendectomy History of arthroscopy of left knee History of partial colectomy Hx of cataract extraction H/O exploratory laparotomy H/O colonoscopy History of surgery History of hysterectomy Social History Social History 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: Other 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 Other:: ex Housing: Apartment Are you a primary adult care manager to a significant other at home: No Do you presently have visiting nurse or other home services: No Alcohol intake: never Comment: PT SLEEPING Patient Tobacco Use Status: Never used Tobacco Smoked in Last 30 Days: No e-Cigarette/Vaping Use: Never Used Second Hand Smoke Exposure: No Use of substances other than those prescribed or required for medical reasons: No Currently Displaying Signs/Symptoms of Drug Intoxication Withdrawal: No Have you been hit, kicked, punched, or otherwise hurt by someone within the past year? If so, by whom?: No Do you feel safe in your current relationship?: Yes Is there a partner from a previous relationship who is making you feel unsafe now?: No Are you made to feel afraid or neglected: No Advance Directives: Yes Advance Directives on File: Yes Advance Directives Date on File: 10/22/23 Do you have a plan to hurt others: No Plan Recently lost weight without trying: No Eating poorly because of decreased appetite: No Nutrition Risks: No Nutritional Risk Patient : No : No Poor oral hygiene: No service: No Current occupational status: retired Cognitive needs: No Hearing needs: No Vision needs: No Meds Allergies Allergy/AdvReac Type Severity Reaction Status Date / Time adhesive tape (ADHESIVE TAPE) Allergy Intermediate RASH Verified 05/08/25 07:44 environmental allergies Allergy Mild URI Verified 05/08/25 07:44 trimethobenzamide (From Allergy Mild NAUSEA Verified 05/08/25 07:44 TIGAN) NSAIDS (Non-Steroidal AdvReac Mild Nephropathy Verified 05/08/25 07:44 Anti-Inflamma Active Medications: Current Medications Acetaminophen (Acetaminophen 325 Mg Tablet) 650 mg PO Q6H PRN PRN Reason: Pain, Mild 1-3,fever,headache Albuterol Sulfate (Albuterol Sulfate 90 Mcg 8 Gm Inhaler) 2 puff INHALE Q4H PRN PRN Reason: Shortness Of Breath Or Wheezing Aspirin (Aspirin 81 Mg Tab.Chew) 81 mg PO DAILY [facility] Atorvastatin Calcium (Atorvastatin Calcium 80 Mg Tablet) 80 mg PO DAILY [facility] Bupropion HCl (Bupropion Hcl Xl 150 Mg Tab.Er.24h) 150 mg PO DAILY [facility] Calcium Carbonate (Calcium Carbonate 750 Mg Tab.Chew) 750 mg PO Q4H PRN PRN Reason: Heartburn Dextrose (Dextrose 50 % 25 Gm/50 Ml Syringe) 25 gm IVPUSH Q15M PRN; Protocol PRN Reason: per Hypoglycemia Standing Ord. Escitalopram Oxalate (Escitalopram Oxalate 10 Mg Tablet) 10 mg PO DAILY [facility] Gabapentin (Gabapentin 300 Mg Capsule) 300 mg PO BID [facility] Last Admin: 05/08/25 20:22 Dose: 300 mg Glucose (Glucose Gel 15 Gm Gel..Gram.) 15 gm PO Q15M PRN; Protocol PRN Reason: per Hypoglycemia Standing Ord. Heparin Sodium (Porcine) (Heparin Sodium,Porcine 5,000 Unit/Ml Vial) 5,000 unit SUBCUT Q12H [facility] Last Admin: 05/09/25 04:14 Dose: 5,000 unit Hydroxyzine HCl (Hydroxyzine Hcl 25 Mg Tablet) 25 mg PO DAILY [facility] Piperacillin Sod/Tazobactam (Sod 3.375 gm/ Sodium Chloride) 50 mls @ 100 mls/hr IV Q8H [facility] Last Infusion: 05/09/25 04:41 Dose: Infused Insulin Glargine (Insulin Glargine,Hum.Rec.Anlog 100 Unit/Ml 10 Ml Vial) 20 unit SUBCUT DAILY [facility] Last Admin: 05/09/25 08:22 Dose: Not Given Insulin Human Lispro (Insulin Lispro 100 Unit/Ml 3 Ml Vial) 0 unit SUBCUT QIDACHS [facility]; Protocol Last Admin: 05/09/25 07:34 Dose: Not Given Lisinopril (Lisinopril 20 Mg Tablet) 20 mg PO DAILY [facility]; Protocol Magnesium Hydroxide (Milk Of Magnesia 30 Ml Oral.Susp) 30 ml PO DAILY PRN PRN Reason: Constipation Melatonin (Melatonin 3 Mg Tablet) 6 mg PO BEDTIME PRN PRN Reason: Insomnia Montelukast Sodium (Montelukast Sodium 10 Mg Tablet) 10 mg PO DAILY [facility] Morphine Sulfate (Morphine Sulfate 4 Mg/Ml Cartridge) 2 mg IVPUSH Q4H PRN; Protocol PRN Reason: Pain, Severe (Pain Scale 7-10) Last Admin: 05/09/25 01:16 Dose: 2 mg Ondansetron HCl (Ondansetron Hcl 4 Mg/2 Ml Vial) 4 mg IVPUSH Q8H PRN PRN Reason: Nausea and Vomiting Oxycodone HCl (Oxycodone Hcl Immed Release 5 Mg Tablet) 5 mg PO Q6H PRN PRN Reason: Pain, Severe (Pain Scale 7-10) Pramipexole Dihydrochloride (Pramipexole Di-Hcl 0.25 Mg Tablet) 0.5 mg PO TID [facility] Last Admin: 05/08/25 20:22 Dose: 0.5 mg Ropinirole HCl (Ropinirole Hcl 2 Mg Tablet) 2 mg PO BID [facility] Last Admin: 05/08/25 20:22 Dose: 2 mg Sodium Chloride (0.9 % Sodium Chloride Flush 3 Ml Syringe) 3 ml IVFLUSH QSHIFT [facility] Last Admin: 05/08/25 20:22 Dose: 3 ml Trazodone HCl (Trazodone Hcl 50 Mg Tablet) 150 mg PO BEDTIME PRN PRN Reason: Insomnia Vitamin D (Cholecalciferol (Vitamin D3) 25 Mcg Tablet) 125 mcg PO DAILY [facility] Home Medications ?Medication ?Instructions ?Recorded ?Confirmed ?Last Taken ?Type bupropion HCl 150 mg 24 hr tablet, 150 mg PO DAILY 04/25/20 05/08/25 05/08/25 History extended release oxygen-air delivery systems ##1 04/25/20 02/20/25 11/22/21 History aspirin 81 mg chewable tablet 81 mg PO DAILY 10/01/21 05/08/25 05/08/25 History hydroxyzine pamoate 25 mg capsule 25 mg PO DAILY 08/13/22 05/08/25 05/08/25 History albuterol sulfate 90 mcg/actuation 2 puff inhalation Q4H PRN 05/08/25 05/08/25 Unknown History aerosol inhaler Shortness Of Breath Or Wheezing cholecalciferol (vitamin D3) 125 125 mcg PO DAILY 05/08/25 05/08/25 05/08/25 History mcg (5,000 unit) capsule citalopram 20 mg tablet 20 mg PO DAILY 05/08/25 05/08/25 05/08/25 History dulaglutide 1.5 mg/0.5 mL 1.5 mg subcut TH 05/08/25 05/08/25 05/04/25 History subcutaneous pen injector (Trulicity) gabapentin 300 mg capsule 300 mg PO BID 05/08/25 05/08/25 05/08/25 History insulin aspart U-100 100 unit/mL See Protocol subcut BIDAC 05/08/25 05/08/25 05/08/25 History (3 mL) subcutaneous pen (Novolog FlexPen U-100 Insulin aspart) [id number] 18 mg-FA 400 1 tab PO DAILY 05/08/25 05/08/25 05/08/25 History mcg-calcium 500 mg-vit K 50 mcg tablet (Women's Multivitamin) pramipexole 0.5 mg tablet 0.5 mg PO TID 05/08/25 05/08/25 05/08/25 History trazodone 150 mg tablet 150 mg PO BEDTIME PRN insomnia 05/08/25 05/08/25 05/07/25 History Physical Exam Exam: Exam: EXAM: GENERAL: The patient is well developed and nontoxic. VITAL SIGNS:see workflow HEENT: Nonicteric sclerae, PERRLA, EOMI. Oropharynx clear. Moist mucous membranes. Conjunctivae appear well perfused. No thyroid mass. CHEST: Chest wall is nontender. HEART: Regular rate and rhythm without murmurs. LUNGS: Clear to auscultation bilaterally. ABDOMEN: Soft, positive bowel sounds, tender, no organomegaly.no flank tenderness--mild line lap scars noted SKIN: No rash, no excessive bruising, petechiae, or purpura. NEUROLOGIC: Cranial nerves II-XII intact without motor/sensory deficit. Psych: normal affect Vital Signs: Vital Signs: Last Vital Signs Temp 97.8 F 05/09/25 07:16 Pulse 83 05/09/25 07:16 Resp 18 05/09/25 07:16 BP 116/51 L 05/09/25 07:16 Pulse Ox 98 05/09/25 03:10 O2 Del Method Nasal Cannula 05/09/25 07:16 O2 Flow Rate 2 05/09/25 07:16 BMI result Body Mass Index 41.2 Results Labs 05/11/25 06:10 05/11/25 06:10 Labs: Short CBC 05/08/25 05/09/25 Range/Units 09:08 05:33 WBC 15.9 H 12.0 H (4.8-10.8) X10*3/uL Hgb 12.2 10.2 L (12.0-16.0) g/dl Hct 39.1 33.8 L (37.0-47.0) % Plt Count 259 231 (160-400) X10*3/uL BMP 05/08/25 05/09/25 09:08 05:33 Sodium 141 142 Potassium 4.3 5.3 H D Chloride 102 102 Carbon Dioxide 31 H 31 H BUN 26 H 29 H Creatinine 1.95 H 2.44 H Calcium 9.6 D 8.5 D Liver Function 05/08/25 05/09/25 Range/Units 09:08 05:33 Total Bilirubin 0.4 1.4 H (0.0-1.0) mg/dL Direct Bilirubin 0.1 (0.0-0.5) mg/dL AST 24 86 H (5-31) U/L ALT 16 50 H (0-31) U/L Alkaline Phosphatase 50 69 (39-117) U/L Albumin 4.2 3.4 L (3.5-5.0) g/dL Urine 05/08/25 Range/Units 10:33 Urine Color Yellow Urine Appearance Clear Urine pH 6.0 (5.0-9.0) Ur Specific [place] 1.010 (1.005-1.025) Urine Protein Negative (Neg-Trace) mg/dL Urine Glucose (UA) Negative (Negative) mg/dL Imaging CT scan - abdomen: Attestation: I personally reviewed and interpreted this imaging study as follows: (left sided colitis,diverticular disease ) Assessment and Plan (1) Acute colitis: Status: Acute Plan 1/ Acute colitis, possibly ischemic or stercoral --improving PLAN: 1/ Cont with ABX 2/ plan for colonoscopy in about 6-8 weeks for further evaluation Procedures Date of Service Date of Service: 05/11/25
[2025-05-09] MEDS: buPROPion HCl XL 150 MG TAB.ER.24H PO (08:33)
[2025-05-09] MEDS: 0.9 % Sodium Chloride Flush 3 ML SYRINGE IVFLUSH ×3 (08:34→23:21)
--- NOTE | 2025-05-09 10:32 | MHC.CM.PN ---
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 PT HAS [employer] PENDANT AND MOW. PT HAS HOME 02 AT 2 LITER CONTINUOUS/ NEBULIZER AND HOME CPAP (DOESN'T USE) VIA [facility]. + HCP ON FILE. PCP DR. DUMONT AT [facility] [place]. DP: HOME WITH RESUMPTION OF SERVICES. PT IS OPEN TO VNA IF RECOMMENDED, FIRST CHOICE WOULD BE [facility] + VNA. PT'S SON WILL TRANSPORT HOME. CM WILL CONTINUE TO FOLLOW FOR ANY CHANGE TO DC PLAN/NEEDS.
[2025-05-09 11:21] LABS: Glucose, Whole Blood 153 mg/dL (60-115)
[2025-05-09 15:54] VITALS: BP 120/60; PULSE 80; RESP 16; TEMP 36.2; O2SAT 97
[2025-05-09 16:14] LABS: Glucose, Whole Blood 137 mg/dL (60-115)
--- NOTE | 2025-05-09 16:33 | HO.PM.IMPN ---
Subjective Subjective Date of Service: 05/09/25 Interval History: Patient seen examined at bedside this morning, patient states that she is experiencing back pain, which has been chronic. Seen by GI, suggested on following up in the outpatient setting for colonoscopy. Review of Systems Review of Systems: Yes all other systems are reviewed and are negative Physical Exam Exam: Exam: General: AxOx3, No acute distress Head: AT/NC ENT: Moist mucous membranes Neck: supple CVS; RRR, S1 S2 normal Lungs: Clear bilateral breath sounds, no wheezes or crackles Abd: Soft non tender, non distended Ext: No edema and no calf tenderness MSK: moving all 4 limbs Skin: No cyanosis or edema Psych: Cooperative with exam Neurology: no focal deficit Vital Signs: Vital Signs: Last Vital Signs Temp 97.2 F 05/09/25 15:54 Pulse 80 05/09/25 15:54 Resp 16 05/09/25 15:54 BP 120/60 05/09/25 15:54 Pulse Ox 97 05/09/25 15:54 O2 Del Method Nasal Cannula 05/09/25 15:54 O2 Flow Rate 2 05/09/25 15:54 BMI result Body Mass Index 41.2 Objective Data Active Medications Acetaminophen (Acetaminophen 325 Mg Tablet) 650 mg PO Q6H PRN PRN Reason: Pain, Mild 1-3,fever,headache Albuterol Sulfate (Albuterol Sulfate 90 Mcg 8 Gm Inhaler) 2 puff INHALE Q4H PRN PRN Reason: Shortness Of Breath Or Wheezing Aspirin (Aspirin 81 Mg Tab.Chew) 81 mg PO DAILY [facility] Last Admin: 05/09/25 08:34 Dose: 81 mg Documented By: MONTSERRAT Atorvastatin Calcium (Atorvastatin Calcium 80 Mg Tablet) 80 mg PO DAILY [facility] Last Admin: 05/09/25 08:33 Dose: 80 mg Documented By: MONTSERRAT Bupropion HCl (Bupropion Hcl Xl 150 Mg Tab.Er.24h) 150 mg PO DAILY [facility] Last Admin: 05/09/25 08:33 Dose: 150 mg Documented By: MONTSERRAT Calcium Carbonate (Calcium Carbonate 750 Mg Tab.Chew) 750 mg PO Q4H PRN PRN Reason: Heartburn Dextrose (Dextrose 50 % 25 Gm/50 Ml Syringe) 25 gm IVPUSH Q15M PRN; Protocol PRN Reason: per Hypoglycemia Standing Ord. Escitalopram Oxalate (Escitalopram Oxalate 10 Mg Tablet) 10 mg PO DAILY [facility] Last Admin: 05/09/25 08:33 Dose: 10 mg Documented By: MONTSERRAT Gabapentin (Gabapentin 300 Mg Capsule) 300 mg PO BID [facility] Last Admin: 05/09/25 08:33 Dose: 300 mg Documented By: MONTSERRAT Glucose (Glucose Gel 15 Gm Gel..Gram.) 15 gm PO Q15M PRN; Protocol PRN Reason: per Hypoglycemia Standing Ord. Heparin Sodium (Porcine) (Heparin Sodium,Porcine 5,000 Unit/Ml Vial) 5,000 unit SUBCUT Q12H [facility] Last Admin: 05/09/25 04:14 Dose: 5,000 unit Documented By: PADMA Hydroxyzine HCl (Hydroxyzine Hcl 25 Mg Tablet) 25 mg PO DAILY [facility] Last Admin: 05/09/25 08:33 Dose: 25 mg Documented By: MONTSERRAT Piperacillin Sod/Tazobactam (Sod 2.25 gm/ Sodium Chloride) 50 mls @ 100 mls/hr IV Q6H [facility] Insulin Glargine (Insulin Glargine,Hum.Rec.Anlog 100 Unit/Ml 10 Ml Vial) 20 unit SUBCUT DAILY [facility] Last Admin: 05/09/25 08:22 Dose: Not Given Documented By: MONTSERRAT Non-Admin Reason: POC WNL Insulin Human Lispro (Insulin Lispro 100 Unit/Ml 3 Ml Vial) 0 unit SUBCUT QIDACHS [facility]; Protocol Last Admin: 05/09/25 16:15 Dose: Not Given Documented By: MONTSERRAT Non-Admin Reason: No Insulin Coverage Lisinopril (Lisinopril 20 Mg Tablet) 20 mg PO DAILY [facility]; Protocol Last Admin: 05/09/25 08:33 Dose: 20 mg Documented By: MONTSERRAT Magnesium Hydroxide (Milk Of Magnesia 30 Ml Oral.Susp) 30 ml PO DAILY PRN PRN Reason: Constipation Melatonin (Melatonin 3 Mg Tablet) 6 mg PO BEDTIME PRN PRN Reason: Insomnia Montelukast Sodium (Montelukast Sodium 10 Mg Tablet) 10 mg PO DAILY [facility] Last Admin: 05/09/25 08:33 Dose: 10 mg Documented By: MONTSERRAT Morphine Sulfate (Morphine Sulfate 4 Mg/Ml Cartridge) 2 mg IVPUSH Q4H PRN; Protocol PRN Reason: Pain, Severe (Pain Scale 7-10) Last Admin: 05/09/25 08:33 Dose: 2 mg Documented By: MONTSERRAT Ondansetron HCl (Ondansetron Hcl 4 Mg/2 Ml Vial) 4 mg IVPUSH Q8H PRN PRN Reason: Nausea and Vomiting Oxycodone HCl (Oxycodone Hcl Immed Release 5 Mg Tablet) 5 mg PO Q6H PRN PRN Reason: Pain, Severe (Pain Scale 7-10) Pramipexole Dihydrochloride (Pramipexole Di-Hcl 0.25 Mg Tablet) 0.5 mg PO TID [facility] Last Admin: 05/09/25 15:01 Dose: 0.5 mg Documented By: MONTSERRAT Ropinirole HCl (Ropinirole Hcl 2 Mg Tablet) 2 mg PO BID [facility] Last Admin: 05/09/25 08:33 Dose: 2 mg Documented By: MONTSERRAT Sodium Chloride (0.9 % Sodium Chloride Flush 3 Ml Syringe) 3 ml IVFLUSH QSHIFT [facility] Last Admin: 05/09/25 15:01 Dose: 3 ml Documented By: MONTSERRAT Trazodone HCl (Trazodone Hcl 50 Mg Tablet) 150 mg PO BEDTIME PRN PRN Reason: Insomnia Vitamin D (Cholecalciferol (Vitamin D3) 25 Mcg Tablet) 125 mcg PO DAILY [facility] Last Admin: 05/09/25 08:34 Dose: 125 mcg Documented By: MONTSERRAT Labs 05/09/25 05:33 05/09/25 05:33 Labs: Laboratory Results - last 24 hr 05/08/25 05/09/25 05/09/25 20:33 05:33 07:16 MCV 92.6 MCH 27.9 MCHC 30.2 L RDW 13.4 Plt Count 231 MPV 11.6 Absolute Nucleated RBC 0.000 Nucleated RBC % (auto) 0.0 Anion Gap 14 Estim Creat Clear Calc 20.6 Estimated GFR 19 POC Glucose 156 H 135 H Random Glucose 142 H Calcium 8.5 D Total Bilirubin 1.4 H AST 86 H ALT 50 H Alkaline Phosphatase 69 Total Protein 6.0 L Albumin 3.4 L 05/09/25 05/09/25 11:17 16:07 MCV MCH MCHC RDW Plt Count MPV Absolute Nucleated RBC Nucleated RBC % (auto) Anion Gap Estim Creat Clear Calc Estimated GFR POC Glucose 153 H 137 H Random Glucose Calcium Total Bilirubin AST ALT Alkaline Phosphatase Total Protein Albumin Microbiology Microbiology Results: Microbiology 05/08/25 10:08 Blood Culture - Preliminary Blood - Venous No growth after 24 hours. 05/08/25 10:08 Blood Culture - Preliminary Blood - Venous No growth after 24 hours. Assessment and Plan (1) Colitis: Status: Acute (2) Diabetes: Status: Acute (3) Morbid obesity: Status: Acute (4) Diabetic nephropathy: Status: Acute Plan 75 year old women admitted with abdominal pain with imaging suggested of acute colitis Colitis Abdominal CT showing acute colitis to left hemicolon likely related to diverticulitis We will treat with Zosyn Pain management GI consulted, suggested follow up in outpatient setting for colonoscopy continue clear liquids Hypertension stable BP continue lisinopril Diabetes Sliding scale Continue Lantus Chronic kidney disease stage 3 baseline History of COPD with chronic respiratory failure No exacerbation Continue albuterol On baseline 2 L of oxygen Mental health Continue home medications Coronary artery disease Continue aspirin and statin Restless leg syndrome Continue allopurinol DVT prophylaxis with heparin Full code Quality Stroke Does the patient have a stroke diagnosis?: No VTE Prior VTE?: No VTE Risk Level:: Medical - moderate - high VTE Device Contraindication: Treatment Not Indicated VTE Drug Contraindication: N/A - Med Ordered
[2025-05-09] MEDS: oxyCODONE HCl Immed Release 5 MG TABLET PO (17:44)
[2025-05-09 20:00] VITALS: BP 155/76; PULSE 67; RESP 16; TEMP 36.6; O2SAT 98
[2025-05-09 20:33] LABS: Glucose, Whole Blood 141 mg/dL (60-115)
[2025-05-10 03:02] VITALS: BP 122/56; PULSE 76; RESP 20; TEMP 36.6; O2SAT 97
[2025-05-10 07:18] VITALS: BP 112/66; PULSE 71; RESP 16; TEMP 36.6; O2SAT 96
[2025-05-10 07:29] VITALS: BP 118/64; PULSE 85; RESP 16; TEMP 36.8; O2SAT 94
[2025-05-10 07:31] LABS: Glucose, Whole Blood 153 mg/dL (60-115)
--- NOTE | 2025-05-10 07:51 | P.PNGS_ITS ---
Subjective Subjective Date of Service: 05/10/25 <Stan Reddy PA-C - Last Filed: 05/10/25 08:00> 05/10/25 <Juan Quintanilla MD - Last Filed: 05/10/25 15:58> Interval history: Feels better today, was able to get some rest overnight. Denies abdominal pain at rest. Denies nausea or vomiting. denies passing of gas or stool. <Stan Reddy PA-C - Last Filed: 05/10/25 08:00> Physical Exam 2 Vital Signs: Vital Signs: Last Vital Signs Temp 98.2 F 05/10/25 07:29 Pulse 85 05/10/25 07:29 Resp 16 05/10/25 07:29 BP 118/64 05/10/25 07:29 Pulse Ox 94 05/10/25 07:29 O2 Del Method Room Air 05/10/25 07:29 O2 Flow Rate 2 05/10/25 03:02 BMI result Body Mass Index 41.2 <Stan Reddy PA-C - Last Filed: 05/10/25 08:00> Const: General: comfortable and no acute distress <Stan Reddy PA-C - Last Filed: 05/10/25 08:00> Orientation/consciousness: patient oriented x3 <Stan Reddy PA-C - Last Filed: 05/10/25 08:00> Resp: Other: supplemental O2 <Stan Reddy PA-C - Last Filed: 05/10/25 08:00> Effort & Inspection: able to speak in complete sentences <Stan Reddy PA-C - Last Filed: 05/10/25 08:00> GI: Inspection: No distended <Stan Reddy PA-C - Last Filed: 05/10/25 08:00> Palpation (GI): Soft to palpation, Tenderness to palpation present (GI) (mild) in the RLQ and no guarding <Stan Reddy PA-C - Last Filed: 05/10/25 08:00> Neuro: General: patient oriented x3 <DONNA Benoit Last Filed: 05/10/25 08:00> Objective Data Active Medications Acetaminophen (Acetaminophen 325 Mg Tablet) 650 mg PO Q6H PRN PRN Reason: Pain, Mild 1-3,fever,headache Albuterol Sulfate (Albuterol Sulfate 90 Mcg 8 Gm Inhaler) 2 puff INHALE Q4H PRN PRN Reason: Shortness Of Breath Or Wheezing Aspirin (Aspirin 81 Mg Tab.Chew) 81 mg PO DAILY [facility] Last Admin: 05/09/25 08:34 Dose: 81 mg Documented By: MONTSERRAT Atorvastatin Calcium (Atorvastatin Calcium 80 Mg Tablet) 80 mg PO DAILY [facility] Last Admin: 05/09/25 08:33 Dose: 80 mg Documented By: MONTSERRAT Bupropion HCl (Bupropion Hcl Xl 150 Mg Tab.Er.24h) 150 mg PO DAILY [facility] Last Admin: 05/09/25 08:33 Dose: 150 mg Documented By: MONTSERRAT Calcium Carbonate (Calcium Carbonate 750 Mg Tab.Chew) 750 mg PO Q4H PRN PRN Reason: Heartburn Dextrose (Dextrose 50 % 25 Gm/50 Ml Syringe) 25 gm IVPUSH Q15M PRN; Protocol PRN Reason: per Hypoglycemia Standing Ord. Escitalopram Oxalate (Escitalopram Oxalate 10 Mg Tablet) 10 mg PO DAILY [facility] Last Admin: 05/09/25 08:33 Dose: 10 mg Documented By: MONTSERRAT Gabapentin (Gabapentin 300 Mg Capsule) 300 mg PO BID [facility] Last Admin: 05/09/25 20:21 Dose: 300 mg Documented By: KODY Glucose (Glucose Gel 15 Gm Gel..Gram.) 15 gm PO Q15M PRN; Protocol PRN Reason: per Hypoglycemia Standing Ord. Heparin Sodium (Porcine) (Heparin Sodium,Porcine 5,000 Unit/Ml Vial) 5,000 unit SUBCUT Q12H [facility] Last Admin: 05/10/25 05:21 Dose: 5,000 unit Documented By: KODY Hydroxyzine HCl (Hydroxyzine Hcl 25 Mg Tablet) 25 mg PO DAILY [facility] Last Admin: 05/09/25 08:33 Dose: 25 mg Documented By: MONTSERRAT Piperacillin Sod/Tazobactam (Sod 2.25 gm/ Sodium Chloride) 50 mls @ 100 mls/hr IV Q6H [facility] Last Infusion: 05/10/25 05:55 Dose: Infused Documented By: KODY Sodium Chloride (Ns) 1,000 mls @ 80 mls/hr IVCONT .[id number] [facility] Insulin Glargine (Insulin Glargine,Hum.Rec.Anlog 100 Unit/Ml 10 Ml Vial) 20 unit SUBCUT DAILY [facility] Last Admin: 05/09/25 08:22 Dose: Not Given Documented By: MONTSERRAT Non-Admin Reason: POC WNL Insulin Human Lispro (Insulin Lispro 100 Unit/Ml 3 Ml Vial) 0 unit SUBCUT QIDACHS [facility]; Protocol Last Admin: 05/09/25 20:44 Dose: Not Given Documented By: KODY Non-Admin Reason: No Insulin Coverage Lisinopril (Lisinopril 20 Mg Tablet) 20 mg PO DAILY [facility]; Protocol Last Admin: 05/09/25 08:33 Dose: 20 mg Documented By: MONTSERRAT Magnesium Hydroxide (Milk Of Magnesia 30 Ml Oral.Susp) 30 ml PO DAILY PRN PRN Reason: Constipation Melatonin (Melatonin 3 Mg Tablet) 6 mg PO BEDTIME PRN PRN Reason: Insomnia Montelukast Sodium (Montelukast Sodium 10 Mg Tablet) 10 mg PO DAILY [facility] Last Admin: 05/09/25 08:33 Dose: 10 mg Documented By: MONTSERRAT Morphine Sulfate (Morphine Sulfate 4 Mg/Ml Cartridge) 2 mg IVPUSH Q4H PRN; Protocol PRN Reason: Pain, Severe (Pain Scale 7-10) Last Admin: 05/09/25 20:21 Dose: 2 mg Documented By: KODY Ondansetron HCl (Ondansetron Hcl 4 Mg/2 Ml Vial) 4 mg IVPUSH Q8H PRN PRN Reason: Nausea and Vomiting Oxycodone HCl (Oxycodone Hcl Immed Release 5 Mg Tablet) 5 mg PO Q6H PRN PRN Reason: Pain, Severe (Pain Scale 7-10) Last Admin: 05/09/25 17:44 Dose: 5 mg Documented By: MONTSERRAT Pramipexole Dihydrochloride (Pramipexole Di-Hcl 0.25 Mg Tablet) 0.5 mg PO TID [facility] Last Admin: 05/09/25 20:21 Dose: 0.5 mg Documented By: KODY Ropinirole HCl (Ropinirole Hcl 2 Mg Tablet) 2 mg PO BID [facility] Last Admin: 05/09/25 20:21 Dose: 2 mg Documented By: KODY Sodium Chloride (0.9 % Sodium Chloride Flush 3 Ml Syringe) 3 ml IVFLUSH QSHIFT [facility] Last Admin: 05/09/25 23:21 Dose: 3 ml Documented By: KODY Tizanidine HCl (Tizanidine Hcl 4 Mg Tablet) 2 mg PO DAILY@1700 [facility] Last Admin: 05/09/25 20:21 Dose: 2 mg Documented By: KODY Trazodone HCl (Trazodone Hcl 50 Mg Tablet) 150 mg PO BEDTIME PRN PRN Reason: Insomnia Vitamin D (Cholecalciferol (Vitamin D3) 25 Mcg Tablet) 125 mcg PO DAILY [facility] Last Admin: 05/09/25 08:34 Dose: 125 mcg Documented By: MONTSERRAT <Stan Reddy PA-C - Last Filed: 05/10/25 08:00> Labs CBC & Chem 7: 05/10/25 10:03 05/10/25 10:03 <Stan Reddy PA-C - Last Filed: 05/10/25 08:00> Labs: Laboratory Results - last 24 hr 05/09/25 05/09/25 05/09/25 11:17 16:07 20:22 POC Glucose 153 H 137 H 141 H 05/10/25 07:27 POC Glucose 153 H <Stan Reddy PA-C - Last Filed: 05/10/25 08:00> Microbiology Microbiology Results: Microbiology 05/08/25 10:08 Blood Culture - Preliminary Blood - Venous No growth after 24 hours. 05/08/25 10:08 Blood Culture - Preliminary Blood - Venous No growth after 24 hours. <Stan Reddy PA-C - Last Filed: 05/10/25 08:00> Procedures Date of Service Date of Service: 05/10/25 <Stan Reddy PA-C - Last Filed: 05/10/25 08:00> 05/10/25 <Juan Quintanilla MD - Last Filed: 05/10/25 15:58> Progress Note: A&P Assessment and plan (1) Colitis: Status: Acute <Stan Reddy PA-C - Last Filed: 05/10/25 08:00> Assessment and Plan: Says abdominal pain has resolved No further episodes of blood per rectum Abdomen very soft and benign Mild tenderness on lower abdomen Looks well overall Follow up the GI Diet as tolerated Bowel regimen for constipation eventually Seen and examined independently <Juan Quintanilla MD - Last Filed: 05/10/25 15:58> (2) BRBPR (bright red blood per rectum): Status: Acute <Stan Reddy PA-C - Last Filed: 05/10/25 08:00> Assessment and Plan: 75 year old female admitted for abdominal pain, BRBPR, likely colitis, possibly ischemic in nature. Today feeling better, denies pain. She is denying nausea, vomiting. Denies passing gas or stools. Currently on CLD, tolerating okay to trial advancing diet as tolerated. abdomen exam is soft, mildly tender in RLQ. non distended. Multiple scars from previous surgeries. no current plan for surgical intervention, recommend flex sig to evaluate the colon. Gi consult appreciated, recommending colonoscopy in 6-8 weeks okay to advance diet as tolerated recommend colace BID for constipation. IVF <Stan Reddy PA-C - Last Filed: 05/10/25 08:00> Time Spent With Patient Time: Total time managing care of this patient today ____ minutes. <Stan Reddy PA-C - Last Filed: 05/10/25 08:00> Quality Stroke Does the patient have a stroke diagnosis?: No <Stan Reddy PA-C - Last Filed: 05/10/25 08:00> VTE Prior VTE?: No <Stan Reddy PA-C - Last Filed: 05/10/25 08:00> VTE Risk Level:: Medical - moderate - high <Stan Reddy PA-C - Last Filed: 05/10/25 08:00> VTE Device Contraindication: Treatment Not Indicated <Stan Reddy PA-C - Last Filed: 05/10/25 08:00> VTE Drug Contraindication: N/A - Med Ordered <Stan Reddy PA-C - Last Filed: 05/10/25 08:00>
[2025-05-10] MEDS: 0.9 % Sodium Chloride Flush 3 ML SYRINGE IVFLUSH (08:23)
[2025-05-10] MEDS: Insulin Glargine,Hum.rec.anlog 100 UNIT/ML 10 ML VIAL 20 UNIT SUBCUT (08:28)
[2025-05-10] MEDS: buPROPion HCl XL 150 MG TAB.ER.24H PO (08:31)
[2025-05-10 08:32] VITALS: BP 118/64
[2025-05-10 10:16] LABS: Hematocrit 33.2 % (37.0-47.0); Hemoglobin 10.2 g/dl (12.0-16.0); Mean Corpuscular HGB Conc 30.7 g/dl (31.0-35.0); Mean Corpuscular Hemoglobin 28.0 pg (27.0-33.0); Mean Corpuscular Volume 91.2 fL (80.0-98.0); NRBC Abs Auto 0.000 X10*3/uL (0.0-0.012); NRBC Pct Auto 0.0 /100WBC (0.0-0.2); Platelet Count 204 X10*3/uL (160-400); Red Blood Count 3.64 X10*6/uL (4.20-5.50); White Blood Count 12.0 X10*3/uL (4.8-10.8)
[2025-05-10 10:34] LABS: Anion Gap 12 (12-20); Blood Urea Nitrogen 30 mg/dL (9-16); Calcium 8.7 mg/dL (8.4-10.2); Carbon Dioxide 29 mmol/L (22-29); Chloride 102 mmol/L (96-108); Creatinine Clr Calc Pharmacy 18.6; Estimated Glomerular Filt Rate 17; Potassium 4.4 mmol/L (3.3-5.1); Sodium 139 mmol/L (135-145)
[2025-05-10 11:13] LABS: Glucose, Whole Blood 124 mg/dL (60-115)
--- NOTE | 2025-05-10 11:24 | HO.PM.IMPN ---
Subjective Subjective Date of Service: 05/10/25 Interval History: Patient seen and examined at bedside this morning, patient states that she is still experiencing lower back pain as well as abdominal pain. On labs creatinine increased to 2.4 from 1.9. Placed on IV fluids. Review of Systems Review of Systems: Yes all other systems are reviewed and are negative Physical Exam Exam: Exam: General: AxOx3, No acute distress Head: AT/NC ENT: Moist mucous membranes Neck: supple CVS; RRR, S1 S2 normal Lungs: Clear bilateral breath sounds, no wheezes or crackles Abd: Soft non tender, non distended Ext: No edema and no calf tenderness MSK: moving all 4 limbs Skin: No cyanosis or edema Psych: Cooperative with exam Neurology: no focal deficit Vital Signs: Vital Signs: Last Vital Signs Temp 98.2 F 05/10/25 07:29 Pulse 85 05/10/25 07:29 Resp 16 05/10/25 07:29 BP 118/64 05/10/25 08:32 Pulse Ox 94 05/10/25 07:29 O2 Del Method Room Air 05/10/25 07:29 O2 Flow Rate 2 05/10/25 03:02 BMI result Body Mass Index 41.2 Objective Data Active Medications Acetaminophen (Acetaminophen 325 Mg Tablet) 650 mg PO Q6H PRN PRN Reason: Pain, Mild 1-3,fever,headache Albuterol Sulfate (Albuterol Sulfate 90 Mcg 8 Gm Inhaler) 2 puff INHALE Q4H PRN PRN Reason: Shortness Of Breath Or Wheezing Aspirin (Aspirin 81 Mg Tab.Chew) 81 mg PO DAILY [facility] Last Admin: 05/10/25 08:32 Dose: 81 mg Documented By: MAHESH Atorvastatin Calcium (Atorvastatin Calcium 80 Mg Tablet) 80 mg PO DAILY [facility] Last Admin: 05/10/25 08:32 Dose: 80 mg Documented By: MAHESH Bupropion HCl (Bupropion Hcl Xl 150 Mg Tab.Er.24h) 150 mg PO DAILY [facility] Last Admin: 05/10/25 08:31 Dose: 150 mg Documented By: MAHESH Calcium Carbonate (Calcium Carbonate 750 Mg Tab.Chew) 750 mg PO Q4H PRN PRN Reason: Heartburn Dextrose (Dextrose 50 % 25 Gm/50 Ml Syringe) 25 gm IVPUSH Q15M PRN; Protocol PRN Reason: per Hypoglycemia Standing Ord. Escitalopram Oxalate (Escitalopram Oxalate 10 Mg Tablet) 10 mg PO DAILY [facility] Last Admin: 05/10/25 08:32 Dose: 10 mg Documented By: MAHESH Gabapentin (Gabapentin 300 Mg Capsule) 300 mg PO BID [facility] Last Admin: 05/10/25 08:31 Dose: 300 mg Documented By: MAHESH Glucose (Glucose Gel 15 Gm Gel..Gram.) 15 gm PO Q15M PRN; Protocol PRN Reason: per Hypoglycemia Standing Ord. Heparin Sodium (Porcine) (Heparin Sodium,Porcine 5,000 Unit/Ml Vial) 5,000 unit SUBCUT Q12H [facility] Last Admin: 05/10/25 05:21 Dose: 5,000 unit Documented By: KODY Hydroxyzine HCl (Hydroxyzine Hcl 25 Mg Tablet) 25 mg PO DAILY [facility] Last Admin: 05/10/25 08:32 Dose: 25 mg Documented By: MAHESH Piperacillin Sod/Tazobactam (Sod 2.25 gm/ Sodium Chloride) 50 mls @ 100 mls/hr IV Q6H [facility] Last Infusion: 05/10/25 05:55 Dose: Infused Documented By: KODY Sodium Chloride (Ns) 1,000 mls @ 80 mls/hr IVCONT .[id number] [facility] Last Admin: 05/10/25 08:24 Dose: 80 mls/hr Documented By: MAHESH Insulin Glargine (Insulin Glargine,Hum.Rec.Anlog 100 Unit/Ml 10 Ml Vial) 20 unit SUBCUT DAILY [facility] Last Admin: 05/10/25 08:28 Dose: 20 unit Documented By: MAHESH Insulin Human Lispro (Insulin Lispro 100 Unit/Ml 3 Ml Vial) 0 unit SUBCUT QIDACHS [facility]; Protocol Last Admin: 05/10/25 11:16 Dose: Not Given Documented By: MAHESH Non-Admin Reason: No Insulin Coverage Lisinopril (Lisinopril 20 Mg Tablet) 20 mg PO DAILY [facility]; Protocol Last Admin: 05/10/25 08:32 Dose: 20 mg Documented By: MAHESH Magnesium Hydroxide (Milk Of Magnesia 30 Ml Oral.Susp) 30 ml PO DAILY PRN PRN Reason: Constipation Melatonin (Melatonin 3 Mg Tablet) 6 mg PO BEDTIME PRN PRN Reason: Insomnia Montelukast Sodium (Montelukast Sodium 10 Mg Tablet) 10 mg PO DAILY [facility] Last Admin: 05/10/25 08:32 Dose: 10 mg Documented By: MAHESH Morphine Sulfate (Morphine Sulfate 4 Mg/Ml Cartridge) 2 mg IVPUSH Q4H PRN; Protocol PRN Reason: Pain, Severe (Pain Scale 7-10) Last Admin: 05/10/25 08:28 Dose: 2 mg Documented By: MAHESH Ondansetron HCl (Ondansetron Hcl 4 Mg/2 Ml Vial) 4 mg IVPUSH Q8H PRN PRN Reason: Nausea and Vomiting Oxycodone HCl (Oxycodone Hcl Immed Release 5 Mg Tablet) 5 mg PO Q6H PRN PRN Reason: Pain, Severe (Pain Scale 7-10) Last Admin: 05/09/25 17:44 Dose: 5 mg Documented By: MONTSERRAT Pramipexole Dihydrochloride (Pramipexole Di-Hcl 0.25 Mg Tablet) 0.5 mg PO TID [facility] Last Admin: 05/10/25 08:32 Dose: 0.5 mg Documented By: MAHESH Ropinirole HCl (Ropinirole Hcl 2 Mg Tablet) 2 mg PO BID [facility] Last Admin: 05/10/25 08:31 Dose: 2 mg Documented By: MAHESH Sodium Chloride (0.9 % Sodium Chloride Flush 3 Ml Syringe) 3 ml IVFLUSH QSHIFT [facility] Last Admin: 05/10/25 08:23 Dose: 3 ml Documented By: MAHESH Tizanidine HCl (Tizanidine Hcl 4 Mg Tablet) 2 mg PO DAILY@1700 [facility] Last Admin: 05/09/25 20:21 Dose: 2 mg Documented By: KODY Trazodone HCl (Trazodone Hcl 50 Mg Tablet) 150 mg PO BEDTIME PRN PRN Reason: Insomnia Vitamin D (Cholecalciferol (Vitamin D3) 25 Mcg Tablet) 125 mcg PO DAILY [facility] Last Admin: 05/10/25 08:31 Dose: 125 mcg Documented By: MAHESH Labs 05/10/25 10:03 05/10/25 10:03 Labs: Laboratory Results - last 24 hr 10/05/09/25 05/10/25 16:07 20:22 07:27 MCV MCH MCHC RDW Plt Count MPV Absolute Nucleated RBC Nucleated RBC % (auto) Anion Gap Estim Creat Clear Calc Estimated GFR POC Glucose 137 H 141 H 153 H Random Glucose Calcium 05/10/25 05/10/25 10:03 11:09 MCV 91.2 MCH 28.0 MCHC 30.7 L RDW 13.2 Plt Count 204 MPV 11.2 Absolute Nucleated RBC 0.000 Nucleated RBC % (auto) 0.0 Anion Gap 12 Estim Creat Clear Calc 18.6 Estimated GFR 17 POC Glucose 124 H Random Glucose 149 H Calcium 8.7 Microbiology Microbiology Results: Microbiology 05/08/25 10:08 Blood Culture - Preliminary Blood - Venous No growth after 24 hours. 05/08/25 10:08 Blood Culture - Preliminary Blood - Venous No growth after 24 hours. Assessment and Plan (1) Diabetes: Status: Acute (2) Acute colitis: Status: Acute (3) Acute kidney injury superimposed on CKD: Status: Acute Plan 75 year old women admitted with abdominal pain with imaging suggested of acute colitis, with recent labs showing AGUSTIN Colitis Abdominal CT showing acute colitis to left hemicolon likely related to diverticulitis continue with Zosyn Pain management GI consulted, suggested follow up in outpatient setting for colonoscopy continue clear liquids Hypertension stable BP continue lisinopril Diabetes Sliding scale Continue Lantus AGUSTIN on Chronic kidney disease stage 3 -will initiate IVF, fluid studies ordered History of COPD with chronic respiratory failure No exacerbation Continue albuterol On baseline 2 L of oxygen Mental health Continue home medications Coronary artery disease Continue aspirin and statin Restless leg syndrome Continue allopurinol DVT prophylaxis with heparin Full code Quality Stroke Does the patient have a stroke diagnosis?: No VTE Prior VTE?: No VTE Risk Level:: Medical - moderate - high VTE Device Contraindication: Treatment Not Indicated VTE Drug Contraindication: N/A - Med Ordered
--- NOTE | 2025-05-10 11:57 | MHC.CM.PN ---
Per MD rounds discharge 1-2 days. PT and OT evals rec home with services. She had received a bed offer from her [facility]st choice for [facility]. A referral has been sent to [facility]. They are following for discharge. Patients son will provide transportation home.
[2025-05-10] MEDS: Milk of Magnesia 30 ML ORAL.SUSP PO (12:12)
[2025-05-10] MEDS: Albuterol Sulfate 90 MCG 8 GM INHALER 2 PUFF INHALE (12:12)
[2025-05-10] MEDS: oxyCODONE HCl Immed Release 5 MG TABLET PO (14:21)
[2025-05-10 15:31] VITALS: BP 120/56; PULSE 88; RESP 15; TEMP 36.9; O2SAT 92
[2025-05-10 16:13] LABS: Glucose, Whole Blood 98 mg/dL (60-115)
[2025-05-10 19:33] VITALS: BP 122/59; PULSE 83; RESP 18; TEMP 36.6; O2SAT 95
[2025-05-10 19:34] LABS: Glucose, Whole Blood 137 mg/dL (60-115)
[2025-05-11 03:59] VITALS: BP 138/54; PULSE 83; RESP 18; TEMP 36.2; O2SAT 93
[2025-05-11 06:53] LABS: Hematocrit 33.1 % (37.0-47.0); Hemoglobin 10.0 g/dl (12.0-16.0); Mean Corpuscular HGB Conc 30.2 g/dl (31.0-35.0); Mean Corpuscular Hemoglobin 27.9 pg (27.0-33.0); Mean Corpuscular Volume 92.5 fL (80.0-98.0); NRBC Abs Auto 0.000 X10*3/uL (0.0-0.012); NRBC Pct Auto 0.0 /100WBC (0.0-0.2); Platelet Count 194 X10*3/uL (160-400); Red Blood Count 3.58 X10*6/uL (4.20-5.50); White Blood Count 8.6 X10*3/uL (4.8-10.8)
[2025-05-11 07:08] VITALS: BP 120/56; PULSE 76; RESP 17; TEMP 36.6; O2SAT 98
[2025-05-11 07:14] LABS: Glucose, Whole Blood 92 mg/dL (60-115)
[2025-05-11 07:15] LABS: Anion Gap 15 (12-20); Blood Urea Nitrogen 25 mg/dL (9-16); Calcium 8.6 mg/dL (8.4-10.2); Carbon Dioxide 26 mmol/L (22-29); Chloride 105 mmol/L (96-108); Creatinine Clr Calc Pharmacy 24.1; Estimated Glomerular Filt Rate 23; Potassium 4.6 mmol/L (3.3-5.1); Sodium 141 mmol/L (135-145)
--- NOTE | 2025-05-11 07:32 | PM.PNGS ---
Subjective Subjective Date of Service: 05/11/25 Interval history: some increased pain in the abdomen today, also complaining of back pain. Passed a bowel movment yesterday, liquid. Denies blood in stool Physical Exam Vital Signs: Vital Signs: Last Vital Signs Temp 98 F 05/11/25 07:08 Pulse 76 05/11/25 07:08 Resp 17 05/11/25 07:08 BP 120/56 L 05/11/25 07:08 Pulse Ox 98 05/11/25 07:08 O2 Del Method Nasal Cannula 05/11/25 07:08 O2 Flow Rate 2 05/11/25 07:08 BMI result Body Mass Index 41.2 Objective Data Active Medications Acetaminophen (Acetaminophen 325 Mg Tablet) 650 mg PO Q6H PRN PRN Reason: Pain, Mild 1-3,fever,headache Albuterol Sulfate (Albuterol Sulfate 90 Mcg 8 Gm Inhaler) 2 puff INHALE Q4H PRN PRN Reason: Shortness Of Breath Or Wheezing Last Admin: 05/10/25 12:12 Dose: 2 puff Documented By: MAHESH Aspirin (Aspirin 81 Mg Tab.Chew) 81 mg PO DAILY [facility] Last Admin: 05/10/25 08:32 Dose: 81 mg Documented By: MAHESH Atorvastatin Calcium (Atorvastatin Calcium 80 Mg Tablet) 80 mg PO DAILY [facility] Last Admin: 05/10/25 08:32 Dose: 80 mg Documented By: MAHESH Bupropion HCl (Bupropion Hcl Xl 150 Mg Tab.Er.24h) 150 mg PO DAILY [facility] Last Admin: 05/10/25 08:31 Dose: 150 mg Documented By: MAHESH Calcium Carbonate (Calcium Carbonate 750 Mg Tab.Chew) 750 mg PO Q4H PRN PRN Reason: Heartburn Dextrose (Dextrose 50 % 25 Gm/50 Ml Syringe) 25 gm IVPUSH Q15M PRN; Protocol PRN Reason: per Hypoglycemia Standing Ord. Escitalopram Oxalate (Escitalopram Oxalate 10 Mg Tablet) 10 mg PO DAILY [facility] Last Admin: 05/10/25 08:32 Dose: 10 mg Documented By: MAHESH Gabapentin (Gabapentin 300 Mg Capsule) 300 mg PO BID [facility] Last Admin: 05/10/25 23:29 Dose: Not Given Documented By: SHANA Non-Admin Reason: Patient Asleep Glucose (Glucose Gel 15 Gm Gel..Gram.) 15 gm PO Q15M PRN; Protocol PRN Reason: per Hypoglycemia Standing Ord. Heparin Sodium (Porcine) (Heparin Sodium,Porcine 5,000 Unit/Ml Vial) 5,000 unit SUBCUT Q12H [facility] Last Admin: 05/11/25 05:16 Dose: 5,000 unit Documented By: SHANA Hydroxyzine HCl (Hydroxyzine Hcl 25 Mg Tablet) 25 mg PO DAILY [facility] Last Admin: 05/10/25 08:32 Dose: 25 mg Documented By: MAHESH Piperacillin Sod/Tazobactam (Sod 2.25 gm/ Sodium Chloride) 50 mls @ 100 mls/hr IV Q6H [facility] Last Infusion: 05/11/25 05:48 Dose: Infused Documented By: SHANA Sodium Chloride (Ns) 1,000 mls @ 80 mls/hr IVCONT .[id number] [facility] Last Infusion: 05/11/25 05:48 Dose: 80 mls/hr Documented By: SHANA Insulin Glargine (Insulin Glargine,Hum.Rec.Anlog 100 Unit/Ml 10 Ml Vial) 20 unit SUBCUT DAILY [facility] Last Admin: 05/10/25 08:28 Dose: 20 unit Documented By: MAHESH Insulin Human Lispro (Insulin Lispro 100 Unit/Ml 3 Ml Vial) 0 unit SUBCUT QIDACHS [facility]; Protocol Last Admin: 05/10/25 21:25 Dose: Not Given Documented By: SHANA Non-Admin Reason: Off Unit: Surgery Lisinopril (Lisinopril 20 Mg Tablet) 20 mg PO DAILY [facility]; Protocol Last Admin: 05/10/25 08:32 Dose: 20 mg Documented By: MAHESH Magnesium Hydroxide (Milk Of Magnesia 30 Ml Oral.Susp) 30 ml PO DAILY PRN PRN Reason: Constipation Last Admin: 05/10/25 12:12 Dose: 30 ml Documented By: MAHESH Melatonin (Melatonin 3 Mg Tablet) 6 mg PO BEDTIME PRN PRN Reason: Insomnia Montelukast Sodium (Montelukast Sodium 10 Mg Tablet) 10 mg PO DAILY [facility] Last Admin: 05/10/25 08:32 Dose: 10 mg Documented By: MAHESH Morphine Sulfate (Morphine Sulfate 4 Mg/Ml Cartridge) 2 mg IVPUSH Q6H PRN; Protocol PRN Reason: Pain, Severe (Pain Scale 7-10) Ondansetron HCl (Ondansetron Hcl 4 Mg/2 Ml Vial) 4 mg IVPUSH Q8H PRN PRN Reason: Nausea and Vomiting Oxycodone HCl (Oxycodone Hcl Immed Release 5 Mg Tablet) 5 mg PO Q6H PRN PRN Reason: Pain, Severe (Pain Scale 7-10) Last Admin: 05/10/25 14:21 Dose: 5 mg Documented By: CHANA Pramipexole Dihydrochloride (Pramipexole Di-Hcl 0.25 Mg Tablet) 0.5 mg PO TID [facility] Last Admin: 05/10/25 23:29 Dose: Not Given Documented By: SHANA Non-Admin Reason: Patient Asleep Ropinirole HCl (Ropinirole Hcl 2 Mg Tablet) 2 mg PO BID [facility] Last Admin: 05/10/25 23:29 Dose: Not Given Documented By: SHANA Non-Admin Reason: Patient Asleep Sodium Chloride (0.9 % Sodium Chloride Flush 3 Ml Syringe) 3 ml IVFLUSH QSHIFT [facility] Last Admin: 05/11/25 07:25 Dose: Not Given Documented By: ALEXA Non-Admin Reason: IV Running Tizanidine HCl (Tizanidine Hcl 4 Mg Tablet) 2 mg PO DAILY@1700 [facility] Last Admin: 05/10/25 17:50 Dose: 2 mg Documented By: MARY GRACE Trazodone HCl (Trazodone Hcl 50 Mg Tablet) 150 mg PO BEDTIME PRN PRN Reason: Insomnia Vitamin D (Cholecalciferol (Vitamin D3) 25 Mcg Tablet) 125 mcg PO DAILY [facility] Last Admin: 05/10/25 08:31 Dose: 125 mcg Documented By: MAHESH Labs 05/11/25 06:10 05/11/25 06:10 Labs: Laboratory Results - last 24 hr 05/10/25 05/10/25 05/10/25 10:03 11:09 13:36 MCV 91.2 MCH 28.0 MCHC 30.7 L RDW 13.2 Plt Count 204 MPV 11.2 Absolute Nucleated RBC 0.000 Nucleated RBC % (auto) 0.0 Anion Gap 12 Estim Creat Clear Calc 18.6 Estimated GFR 17 POC Glucose 124 H Random Glucose 149 H Calcium 8.7 Ur Random Sodium 61.0 Urine Creatinine 98.04 05/10/25 05/10/25 05/11/25 16:06 19:29 06:10 MCV 92.5 MCH 27.9 MCHC 30.2 L RDW 13.0 Plt Count 194 MPV 11.8 Absolute Nucleated RBC 0.000 Nucleated RBC % (auto) 0.0 Anion Gap 15 Estim Creat Clear Calc 24.1 Estimated GFR 23 POC Glucose 98 137 H Random Glucose 90 Calcium 8.6 Ur Random Sodium Urine Creatinine 05/11/25 07:10 MCV MCH MCHC RDW Plt Count MPV Absolute Nucleated RBC Nucleated RBC % (auto) Anion Gap Estim Creat Clear Calc Estimated GFR POC Glucose 92 Random Glucose Calcium Ur Random Sodium Urine Creatinine Microbiology Microbiology Results: Microbiology 05/08/25 10:08 Blood Culture - Preliminary Blood - Venous No growth after 48 hours. 05/08/25 10:08 Blood Culture - Preliminary Blood - Venous No growth after 48 hours. Procedures Date of Service Date of Service: 05/11/25 Progress Note: A&P Time Spent With Patient Time: Total time managing care of this patient today ____ minutes. Quality Stroke Does the patient have a stroke diagnosis?: No VTE Prior VTE?: No VTE Risk Level:: Medical - moderate - high VTE Device Contraindication: Treatment Not Indicated VTE Drug Contraindication: N/A - Med Ordered
--- NOTE | 2025-05-11 08:49 | PM.PNGS ---
Subjective Subjective Date of Service: 05/11/25 Interval history: Had bowel movements Admits to abdominal pain No fever No further blood per rectum No events overnight Physical Exam Vital Signs: Vital Signs: Last Vital Signs Temp 98 F 05/11/25 07:08 Pulse 76 05/11/25 07:08 Resp 17 05/11/25 07:08 BP 120/56 L 05/11/25 07:08 Pulse Ox 98 05/11/25 07:08 O2 Del Method Nasal Cannula 05/11/25 07:08 O2 Flow Rate 2 05/11/25 07:08 BMI result Body Mass Index 41.2 Const: General: comfortable and no acute distress Resp: Effort & Inspection: normal respiratory effort Cardio: Rate: regular rate GI: Palpation (GI): Soft to palpation, not firm, Tenderness to palpation present (GI) (Mild tenderness diffusely) and no guarding Objective Data Active Medications Acetaminophen (Acetaminophen 325 Mg Tablet) 650 mg PO Q6H PRN PRN Reason: Pain, Mild 1-3,fever,headache Albuterol Sulfate (Albuterol Sulfate 90 Mcg 8 Gm Inhaler) 2 puff INHALE Q4H PRN PRN Reason: Shortness Of Breath Or Wheezing Last Admin: 05/10/25 12:12 Dose: 2 puff Documented By: MAHESH Aspirin (Aspirin 81 Mg Tab.Chew) 81 mg PO DAILY [facility] Last Admin: 05/10/25 08:32 Dose: 81 mg Documented By: MAHESH Atorvastatin Calcium (Atorvastatin Calcium 80 Mg Tablet) 80 mg PO DAILY [facility] Last Admin: 05/10/25 08:32 Dose: 80 mg Documented By: MAHESH Bupropion HCl (Bupropion Hcl Xl 150 Mg Tab.Er.24h) 150 mg PO DAILY [facility] Last Admin: 05/10/25 08:31 Dose: 150 mg Documented By: MAHESH Calcium Carbonate (Calcium Carbonate 750 Mg Tab.Chew) 750 mg PO Q4H PRN PRN Reason: Heartburn Dextrose (Dextrose 50 % 25 Gm/50 Ml Syringe) 25 gm IVPUSH Q15M PRN; Protocol PRN Reason: per Hypoglycemia Standing Ord. Escitalopram Oxalate (Escitalopram Oxalate 10 Mg Tablet) 10 mg PO DAILY [facility] Last Admin: 05/10/25 08:32 Dose: 10 mg Documented By: MAHESH Gabapentin (Gabapentin 300 Mg Capsule) 300 mg PO BID [facility] Last Admin: 05/10/25 23:29 Dose: Not Given Documented By: SHANA Non-Admin Reason: Patient Asleep Glucose (Glucose Gel 15 Gm Gel..Gram.) 15 gm PO Q15M PRN; Protocol PRN Reason: per Hypoglycemia Standing Ord. Heparin Sodium (Porcine) (Heparin Sodium,Porcine 5,000 Unit/Ml Vial) 5,000 unit SUBCUT Q12H [facility] Last Admin: 05/11/25 05:16 Dose: 5,000 unit Documented By: SHANA Hydroxyzine HCl (Hydroxyzine Hcl 25 Mg Tablet) 25 mg PO DAILY [facility] Last Admin: 05/10/25 08:32 Dose: 25 mg Documented By: MAHESH Piperacillin Sod/Tazobactam (Sod 2.25 gm/ Sodium Chloride) 50 mls @ 100 mls/hr IV Q6H [facility] Last Infusion: 05/11/25 05:48 Dose: Infused Documented By: SHANA Sodium Chloride (Ns) 1,000 mls @ 80 mls/hr IVCONT .[id number] [facility] Last Infusion: 05/11/25 05:48 Dose: 80 mls/hr Documented By: SHANA Insulin Glargine (Insulin Glargine,Hum.Rec.Anlog 100 Unit/Ml 10 Ml Vial) 20 unit SUBCUT DAILY [facility] Last Admin: 05/10/25 08:28 Dose: 20 unit Documented By: MAHESH Insulin Human Lispro (Insulin Lispro 100 Unit/Ml 3 Ml Vial) 0 unit SUBCUT QIDACHS [facility]; Protocol Last Admin: 05/11/25 08:00 Dose: Not Given Documented By: ALEXA Non-Admin Reason: No Insulin Coverage Lisinopril (Lisinopril 20 Mg Tablet) 20 mg PO DAILY [facility]; Protocol Last Admin: 05/10/25 08:32 Dose: 20 mg Documented By: MAHESH Magnesium Hydroxide (Milk Of Magnesia 30 Ml Oral.Susp) 30 ml PO DAILY PRN PRN Reason: Constipation Last Admin: 05/10/25 12:12 Dose: 30 ml Documented By: MAHESH Melatonin (Melatonin 3 Mg Tablet) 6 mg PO BEDTIME PRN PRN Reason: Insomnia Montelukast Sodium (Montelukast Sodium 10 Mg Tablet) 10 mg PO DAILY [facility] Last Admin: 05/10/25 08:32 Dose: 10 mg Documented By: MAHESH Morphine Sulfate (Morphine Sulfate 4 Mg/Ml Cartridge) 2 mg IVPUSH Q6H PRN; Protocol PRN Reason: Pain, Severe (Pain Scale 7-10) Ondansetron HCl (Ondansetron Hcl 4 Mg/2 Ml Vial) 4 mg IVPUSH Q8H PRN PRN Reason: Nausea and Vomiting Oxycodone HCl (Oxycodone Hcl Immed Release 5 Mg Tablet) 5 mg PO Q6H PRN PRN Reason: Pain, Severe (Pain Scale 7-10) Last Admin: 05/10/25 14:21 Dose: 5 mg Documented By: CHANA Pramipexole Dihydrochloride (Pramipexole Di-Hcl 0.25 Mg Tablet) 0.5 mg PO TID [facility] Last Admin: 05/10/25 23:29 Dose: Not Given Documented By: SHANA Non-Admin Reason: Patient Asleep Ropinirole HCl (Ropinirole Hcl 2 Mg Tablet) 2 mg PO BID [facility] Last Admin: 05/10/25 23:29 Dose: Not Given Documented By: SHANA Non-Admin Reason: Patient Asleep Sodium Chloride (0.9 % Sodium Chloride Flush 3 Ml Syringe) 3 ml IVFLUSH QSHIFT [facility] Last Admin: 05/11/25 07:25 Dose: Not Given Documented By: ALEXA Non-Admin Reason: IV Running Tizanidine HCl (Tizanidine Hcl 4 Mg Tablet) 2 mg PO DAILY@1700 [facility] Last Admin: 05/10/25 17:50 Dose: 2 mg Documented By: MARY GRACE Trazodone HCl (Trazodone Hcl 50 Mg Tablet) 150 mg PO BEDTIME PRN PRN Reason: Insomnia Vitamin D (Cholecalciferol (Vitamin D3) 25 Mcg Tablet) 125 mcg PO DAILY [facility] Last Admin: 05/10/25 08:31 Dose: 125 mcg Documented By: MAHESH Labs 05/11/25 06:10 05/11/25 06:10 Labs: Laboratory Results - last 24 hr 05/10/25 05/10/25 05/10/25 10:03 11:09 13:36 MCV 91.2 MCH 28.0 MCHC 30.7 L RDW 13.2 Plt Count 204 MPV 11.2 Absolute Nucleated RBC 0.000 Nucleated RBC % (auto) 0.0 Anion Gap 12 Estim Creat Clear Calc 18.6 Estimated GFR 17 POC Glucose 124 H Random Glucose 149 H Calcium 8.7 Ur Random Sodium 61.0 Urine Creatinine 98.04 05/10/25 05/10/25 05/11/25 16:06 19:29 06:10 MCV 92.5 MCH 27.9 MCHC 30.2 L RDW 13.0 Plt Count 194 MPV 11.8 Absolute Nucleated RBC 0.000 Nucleated RBC % (auto) 0.0 Anion Gap 15 Estim Creat Clear Calc 24.1 Estimated GFR 23 POC Glucose 98 137 H Random Glucose 90 Calcium 8.6 Ur Random Sodium Urine Creatinine 05/11/25 07:10 MCV MCH MCHC RDW Plt Count MPV Absolute Nucleated RBC Nucleated RBC % (auto) Anion Gap Estim Creat Clear Calc Estimated GFR POC Glucose 92 Random Glucose Calcium Ur Random Sodium Urine Creatinine Microbiology Microbiology Results: Microbiology 05/08/25 10:08 Blood Culture - Preliminary Blood - Venous No growth after 48 hours. 05/08/25 10:08 Blood Culture - Preliminary Blood - Venous No growth after 48 hours. Procedures Date of Service Date of Service: 05/11/25 Progress Note: A&P Assessment and plan (1) Colitis: Status: Acute Assessment and Plan: Abdomen remained soft and benign Hemoglobin steady No leukocytosis Bicarb normal Has BMs Encouraged to get out of bed GI follow up Diet advance as tolerated Time Spent With Patient Time: Total time managing care of this patient today ____ minutes. Quality Stroke Does the patient have a stroke diagnosis?: No VTE Prior VTE?: No VTE Risk Level:: Medical - moderate - high VTE Device Contraindication: Treatment Not Indicated VTE Drug Contraindication: N/A - Med Ordered
--- NOTE | 2025-05-11 10:17 | P.CDIM_ITS ---
PROVIDER RESPONSE TEXT: To clarify, the appropriate diagnosis supported by the clinical indicators: Anemia of chronic disease: CKD QUERY TEXT: PHYSICIAN'S DOCUMENTATION REQUEST Date of Query: 05/11/2025 09:28 AM EDT Patient Name: Mine Peacock Admit Date: 05/08/2025 Dear Kendrick Guthrie MD, A review of the medical record indicates additional documentation may be needed. Please review below and update the documentation accordingly. Clinical Indicators: admit with abdominal pain, BRBPR stool OB + H&H on 05/08/25: 12.2/39.1 H&H on 05/11/25: 10.0/33.1 Based on the above, could you clarify which of the following is the most likely type of anemia you are evaluating, treating, and/or monitoring? Acute blood loss anemia Acute blood loss anemia with baseline chronic anemia (specify type) Anemia of chronic disease indicate if neoplastic disease, CKD, or other Chronic iron deficiency anemia due to blood loss Vitamin B12 deficiency anemia indicate etiology, such as intrinsic factor deficiency, malabsorption, transcobalamin II deficiency, dietary, etc Folate deficiency anemia indicate etiology, such as dietary, drug-induced, etc Protein deficiency anemia Other (explain) Clinically unable to determine (explain) Thank you, Leslee Belcher RN Use of terms such as suspected, likely, concern for, or probable (associated with a specific diagnosis that is being evaluated, monitored, or treated as if it exists) are acceptable and can be coded in the inpatient setting, when documented at the time of discharge. Please use your independent medical judgment in providing your response. THIS QUERY IS PART OF THE PERMANENT MEDICAL RECORD
[2025-05-11 11:10] LABS: Glucose, Whole Blood 102 mg/dL (60-115)
--- NOTE | 2025-05-11 11:25 | HO.PM.IMPN ---
Subjective Subjective Date of Service: 05/11/25 Interval History: Patient seen examined at bedside this morning, patient's creatinine has improved. Patient states that she continues with nausea and vomiting, mentioned that she was able to sleep better. Review of Systems Review of Systems: Yes all other systems are reviewed and are negative Physical Exam Exam: Exam: General: AxOx3, No acute distress Head: AT/NC ENT: Moist mucous membranes Neck: supple CVS; RRR, S1 S2 normal Lungs: Clear bilateral breath sounds, no wheezes or crackles Abd: Soft non tender, non distended Ext: No edema and no calf tenderness MSK: moving all 4 limbs Skin: No cyanosis or edema Psych: Cooperative with exam Neurology: no focal deficit Vital Signs: Vital Signs: Last Vital Signs Temp 98 F 05/11/25 07:08 Pulse 76 05/11/25 07:08 Resp 17 05/11/25 07:08 BP 120/56 L 05/11/25 07:08 Pulse Ox 98 05/11/25 07:08 O2 Del Method Nasal Cannula 05/11/25 07:08 O2 Flow Rate 2 05/11/25 07:08 BMI result Body Mass Index 41.2 Objective Data Active Medications Acetaminophen (Acetaminophen 325 Mg Tablet) 650 mg PO Q6H PRN PRN Reason: Pain, Mild 1-3,fever,headache Albuterol Sulfate (Albuterol Sulfate 90 Mcg 8 Gm Inhaler) 2 puff INHALE Q4H PRN PRN Reason: Shortness Of Breath Or Wheezing Last Admin: 05/10/25 12:12 Dose: 2 puff Documented By: MAHESH Aspirin (Aspirin 81 Mg Tab.Chew) 81 mg PO DAILY [facility] Last Admin: 05/11/25 10:53 Dose: Not Given Documented By: ALEXA Non-Admin Reason: Nausea Atorvastatin Calcium (Atorvastatin Calcium 80 Mg Tablet) 80 mg PO DAILY [facility] Last Admin: 05/11/25 10:55 Dose: Not Given Documented By: ALEXA Non-Admin Reason: Nausea Bupropion HCl (Bupropion Hcl Xl 150 Mg Tab.Er.24h) 150 mg PO DAILY [facility] Last Admin: 05/11/25 10:55 Dose: Not Given Documented By: ALEXA Non-Admin Reason: Nausea Calcium Carbonate (Calcium Carbonate 750 Mg Tab.Chew) 750 mg PO Q4H PRN PRN Reason: Heartburn Dextrose (Dextrose 50 % 25 Gm/50 Ml Syringe) 25 gm IVPUSH Q15M PRN; Protocol PRN Reason: per Hypoglycemia Standing Ord. Escitalopram Oxalate (Escitalopram Oxalate 10 Mg Tablet) 10 mg PO DAILY [facility] Last Admin: 05/11/25 10:55 Dose: Not Given Documented By: ALEXA Non-Admin Reason: Nausea Gabapentin (Gabapentin 300 Mg Capsule) 300 mg PO BID [facility] Last Admin: 05/11/25 10:56 Dose: Not Given Documented By: ALEXA Non-Admin Reason: Patient Refused Glucose (Glucose Gel 15 Gm Gel..Gram.) 15 gm PO Q15M PRN; Protocol PRN Reason: per Hypoglycemia Standing Ord. Heparin Sodium (Porcine) (Heparin Sodium,Porcine 5,000 Unit/Ml Vial) 5,000 unit SUBCUT Q12H [facility] Last Admin: 05/11/25 05:16 Dose: 5,000 unit Documented By: SHANA Hydroxyzine HCl (Hydroxyzine Hcl 25 Mg Tablet) 25 mg PO DAILY [facility] Last Admin: 05/11/25 10:56 Dose: Not Given Documented By: ALEXA Non-Admin Reason: Patient Refused Piperacillin Sod/Tazobactam (Sod 2.25 gm/ Sodium Chloride) 50 mls @ 100 mls/hr IV Q6H [facility] Last Infusion: 05/11/25 05:48 Dose: Infused Documented By: SHANA Sodium Chloride (Ns) 1,000 mls @ 80 mls/hr IVCONT .[id number] [facility] Last Infusion: 05/11/25 05:48 Dose: 80 mls/hr Documented By: SHANA Insulin Glargine (Insulin Glargine,Hum.Rec.Anlog 100 Unit/Ml 10 Ml Vial) 20 unit SUBCUT DAILY [facility] Last Admin: 05/11/25 09:02 Dose: Not Given Documented By: ALEXA Non-Admin Reason: pt not eating, MD aware Insulin Human Lispro (Insulin Lispro 100 Unit/Ml 3 Ml Vial) 0 unit SUBCUT QIDACHS [facility]; Protocol Last Admin: 05/11/25 08:00 Dose: Not Given Documented By: ALEXA Non-Admin Reason: No Insulin Coverage Lisinopril (Lisinopril 20 Mg Tablet) 20 mg PO DAILY [facility]; Protocol Last Admin: 05/11/25 10:56 Dose: Not Given Documented By: ALEXA Non-Admin Reason: Nausea Magnesium Hydroxide (Milk Of Magnesia 30 Ml Oral.Susp) 30 ml PO DAILY PRN PRN Reason: Constipation Last Admin: 05/10/25 12:12 Dose: 30 ml Documented By: MAHESH Melatonin (Melatonin 3 Mg Tablet) 6 mg PO BEDTIME PRN PRN Reason: Insomnia Montelukast Sodium (Montelukast Sodium 10 Mg Tablet) 10 mg PO DAILY [facility] Last Admin: 05/11/25 10:56 Dose: Not Given Documented By: ALEXA Non-Admin Reason: Patient Refused Morphine Sulfate (Morphine Sulfate 4 Mg/Ml Cartridge) 2 mg IVPUSH Q6H PRN; Protocol PRN Reason: Pain, Severe (Pain Scale 7-10) Ondansetron HCl (Ondansetron Hcl 4 Mg/2 Ml Vial) 4 mg IVPUSH Q8H PRN PRN Reason: Nausea and Vomiting Last Admin: 05/11/25 09:10 Dose: 4 mg Documented By: ALEXA Oxycodone HCl (Oxycodone Hcl Immed Release 5 Mg Tablet) 5 mg PO Q6H PRN PRN Reason: Pain, Severe (Pain Scale 7-10) Last Admin: 05/10/25 14:21 Dose: 5 mg Documented By: CHANA Pramipexole Dihydrochloride (Pramipexole Di-Hcl 0.25 Mg Tablet) 0.5 mg PO TID [facility] [place] Last Admin: 05/11/25 10:56 Dose: Not Given Documented By: ALEXA Non-Admin Reason: Nausea Ropinirole HCl (Ropinirole Hcl 2 Mg Tablet) 2 mg PO BID [facility] [place] Last Admin: 05/11/25 10:56 Dose: Not Given Documented By: ALEXA Non-Admin Reason: Nausea Sodium Chloride (0.9 % Sodium Chloride Flush 3 Ml Syringe) 3 ml IVFLUSH QSHIFT [facility] Last Admin: 05/11/25 07:25 Dose: Not Given Documented By: ALEXA Non-Admin Reason: IV Running Tizanidine HCl (Tizanidine Hcl 4 Mg Tablet) 2 mg PO DAILY@1700 [facility] [place] Last Admin: 05/10/25 17:50 Dose: 2 mg Documented By: HO.[email or web address] Trazodone HCl (Trazodone Hcl 50 Mg Tablet) 150 mg PO BEDTIME PRN PRN Reason: Insomnia Vitamin D (Cholecalciferol (Vitamin D3) 25 Mcg Tablet) 125 mcg PO DAILY [facility] Last Admin: 05/11/25 10:55 Dose: Not Given Documented By: ALEXA Non-Admin Reason: Nausea Labs 05/11/25 06:10 05/11/25 06:10 Labs: Laboratory Results - last 24 hr 05/10/25 05/10/25 05/10/25 13:36 16:06 19:29 MCV MCH MCHC RDW Plt Count MPV Absolute Nucleated RBC Nucleated RBC % (auto) Anion Gap Estim Creat Clear Calc Estimated GFR POC Glucose 98 137 H Random Glucose Calcium Ur Random Sodium 61.0 Urine Creatinine 98.04 05/11/25 05/11/25 05/11/25 06:10 07:10 11:04 MCV 92.5 MCH 27.9 MCHC 30.2 L RDW 13.0 Plt Count 194 MPV 11.8 Absolute Nucleated RBC 0.000 Nucleated RBC % (auto) 0.0 Anion Gap 15 Estim Creat Clear Calc 24.1 Estimated GFR 23 POC Glucose 92 102 Random Glucose 90 Calcium 8.6 Ur Random Sodium Urine Creatinine Microbiology Microbiology Results: Microbiology 05/08/25 10:08 Blood Culture - Preliminary Blood - Venous No growth after 48 hours. 05/08/25 10:08 Blood Culture - Preliminary Blood - Venous No growth after 48 hours. Assessment and Plan (1) Diabetes: Status: Acute (2) Acute kidney injury superimposed on CKD: Status: Acute (3) COPD (chronic obstructive pulmonary disease): Status: Acute (4) Colitis: Status: Acute Plan 75 year old women admitted with abdominal pain with imaging suggested of acute colitis, with recent labs showing AGUSTIN Colitis Abdominal CT showing acute colitis to left hemicolon likely related to diverticulitis continue with Zosyn Pain management GI consulted, suggested follow up in outpatient setting for colonoscopy transitioned to diabetic soft diet Hypertension stable BP continue lisinopril Diabetes possible gastroparesis Sliding scale Continue Lantus will give reglan IV, once tolerating to transtion to PO AGUSTIN on Chronic kidney disease stage 3 -will initiate IVF, fluid studies ordered History of COPD with chronic respiratory failure No exacerbation Continue albuterol On baseline 2 L of oxygen Mental health Continue home medications Coronary artery disease Continue aspirin and statin Restless leg syndrome Continue allopurinol DVT prophylaxis with heparin Full code Quality Stroke Does the patient have a stroke diagnosis?: No VTE Prior VTE?: No VTE Risk Level:: Medical - moderate - high VTE Device Contraindication: Treatment Not Indicated VTE Drug Contraindication: N/A - Med Ordered
--- NOTE | 2025-05-11 13:38 | P.CONNP_ITS ---
History of Present Illness Reason for Consult Consult date: 05/11/25 Reason for consult: Hyponatremia Chief Complaint Chief complaint: Colitis History of Present Illness Narrative: 75-year-old female with a past medical history of COPD, diabetes, CKD, ALDO, GERD, s/p appendectomy, cholecystectomy, partial colectomy, presenting to the ED complaining of diffuse abdominal pain since this morning. She has a history of CKD. Baseline creatinine is around 1.4-1.8 mg/dL. She was admitted with a creatinine of 2.44.on May 09. Creatinine increased to 2.7 on May 10. Today creatinine is 2.08. Review of Systems Review of Systems Yes Unobtainable due to mental status PMFSH Past Medical History Medical History (Updated 05/10/25 @ 11:27 by Kendrcik Guthrie MD) Exercise hypoxemia Depression, major, recurrent Dysuria Diabetes 1.5, managed as type 1 COPD (chronic obstructive pulmonary disease) Respiratory failure with hypoxia Urinary tract infection Hypoxemia Morbid obesity CKD (chronic kidney disease) Anemia Allergic rhinitis ALDO (obstructive sleep apnea) Obesity (BMI 30-39.9) Constipation due to opioid therapy Osteoarthritis of left knee Hx SBO Hyperlipidemia CPAP (continuous positive airway pressure) dependence History of adrenal adenoma Osteochondroma of left femur Arthritis Elevated cholesterol History of restless legs syndrome History of diverticulitis GERD (gastroesophageal reflux disease) Family History Family History Father HTN (hypertension) Diabetes mellitus Mother HTN (hypertension) Liver cancer Surgical History Surgical History H/O excision of mass History of oophorectomy History of cholecystectomy History of appendectomy History of arthroscopy of left knee History of partial colectomy Hx of cataract extraction H/O exploratory laparotomy H/O colonoscopy History of surgery History of hysterectomy Social History Social History 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: Other 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 Other:: ex Housing: Apartment Are you a primary healthcare account manager to a significant other at home: No Do you presently have visiting nurse or other home services: No Alcohol intake: never Comment: PT SLEEPING Patient Tobacco Use Status: Never used Tobacco Smoked in Last 30 Days: No e-Cigarette/Vaping Use: Never Used Second Hand Smoke Exposure: No Use of substances other than those prescribed or required for medical reasons: No Currently Displaying Signs/Symptoms of Drug Intoxication Withdrawal: No Have you been hit, kicked, punched, or otherwise hurt by someone within the past year? If so, by whom?: No Do you feel safe in your current relationship?: Yes Is there a partner from a previous relationship who is making you feel unsafe now?: No Are you made to feel afraid or neglected: No Advance Directives: Yes Advance Directives on File: Yes Advance Directives Date on File: 10/22/23 Do you have a plan to hurt others: No Plan Recently lost weight without trying: No Eating poorly because of decreased appetite: No Nutrition Risks: No Nutritional Risk Patient : No : No Poor oral hygiene: No service: No Current occupational status: retired Cognitive needs: No Hearing needs: No Vision needs: No Meds Allergies Allergy/AdvReac Type Severity Reaction Status Date / Time adhesive tape (ADHESIVE TAPE) Allergy Intermediate RASH Verified 05/08/25 07:44 environmental allergies Allergy Mild URI Verified 05/08/25 07:44 trimethobenzamide (From Allergy Mild NAUSEA Verified 05/08/25 07:44 TIGAN) NSAIDS (Non-Steroidal AdvReac Mild Nephropathy Verified 05/08/25 07:44 Anti-Inflamma Active Medications: Current Medications Acetaminophen (Acetaminophen 325 Mg Tablet) 650 mg PO Q6H PRN PRN Reason: Pain, Mild 1-3,fever,headache Albuterol Sulfate (Albuterol Sulfate 90 Mcg 8 Gm Inhaler) 2 puff INHALE Q4H PRN PRN Reason: Shortness Of Breath Or Wheezing Last Admin: 05/10/25 12:12 Dose: 2 puff Aspirin (Aspirin 81 Mg Tab.Chew) 81 mg PO DAILY [facility] Last Admin: 05/11/25 10:53 Dose: Not Given Atorvastatin Calcium (Atorvastatin Calcium 80 Mg Tablet) 80 mg PO DAILY [facility] Last Admin: 05/11/25 10:55 Dose: Not Given Bupropion HCl (Bupropion Hcl Xl 150 Mg Tab.Er.24h) 150 mg PO DAILY [facility] Last Admin: 05/11/25 10:55 Dose: Not Given Calcium Carbonate (Calcium Carbonate 750 Mg Tab.Chew) 750 mg PO Q4H PRN PRN Reason: Heartburn Dextrose (Dextrose 50 % 25 Gm/50 Ml Syringe) 25 gm IVPUSH Q15M PRN; Protocol PRN Reason: per Hypoglycemia Standing Ord. Escitalopram Oxalate (Escitalopram Oxalate 10 Mg Tablet) 10 mg PO DAILY [facility] Last Admin: 05/11/25 10:55 Dose: Not Given Gabapentin (Gabapentin 300 Mg Capsule) 300 mg PO BID [facility] Last Admin: 05/11/25 10:56 Dose: Not Given Glucose (Glucose Gel 15 Gm Gel..Gram.) 15 gm PO Q15M PRN; Protocol PRN Reason: per Hypoglycemia Standing Ord. Heparin Sodium (Porcine) (Heparin Sodium,Porcine 5,000 Unit/Ml Vial) 5,000 unit SUBCUT Q12H [facility] Last Admin: 05/11/25 05:16 Dose: 5,000 unit Hydroxyzine HCl (Hydroxyzine Hcl 25 Mg Tablet) 25 mg PO DAILY [facility] Last Admin: 05/11/25 10:56 Dose: Not Given Piperacillin Sod/Tazobactam (Sod 2.25 gm/ Sodium Chloride) 50 mls @ 100 mls/hr IV Q6H [facility] Last Infusion: 05/11/25 13:33 Dose: Infused Sodium Chloride (Ns) 1,000 mls @ 80 mls/hr IVCONT .[id number] [facility] Last Admin: 05/11/25 11:45 Dose: 80 mls/hr Insulin Glargine (Insulin Glargine,Hum.Rec.Anlog 100 Unit/Ml 10 Ml Vial) 20 unit SUBCUT DAILY [facility] Last Admin: 05/11/25 09:02 Dose: Not Given Insulin Human Lispro (Insulin Lispro 100 Unit/Ml 3 Ml Vial) 0 unit SUBCUT QIDACHS [facility]; Protocol Last Admin: 05/11/25 11:45 Dose: Not Given Lisinopril (Lisinopril 20 Mg Tablet) 20 mg PO DAILY [facility]; Protocol Last Admin: 05/11/25 10:56 Dose: Not Given Magnesium Hydroxide (Milk Of Magnesia 30 Ml Oral.Susp) 30 ml PO DAILY PRN PRN Reason: Constipation Last Admin: 05/10/25 12:12 Dose: 30 ml Melatonin (Melatonin 3 Mg Tablet) 6 mg PO BEDTIME PRN PRN Reason: Insomnia Montelukast Sodium (Montelukast Sodium 10 Mg Tablet) 10 mg PO DAILY [facility] Last Admin: 05/11/25 10:56 Dose: Not Given Morphine Sulfate (Morphine Sulfate 4 Mg/Ml Cartridge) 2 mg IVPUSH Q6H PRN; Protocol PRN Reason: Pain, Severe (Pain Scale 7-10) Ondansetron HCl (Ondansetron Hcl 4 Mg/2 Ml Vial) 4 mg IVPUSH Q8H PRN PRN Reason: Nausea and Vomiting Last Admin: 05/11/25 09:10 Dose: 4 mg Oxycodone HCl (Oxycodone Hcl Immed Release 5 Mg Tablet) 5 mg PO Q6H PRN PRN Reason: Pain, Severe (Pain Scale 7-10) Last Admin: 05/10/25 14:21 Dose: 5 mg Pantoprazole Sodium (Pantoprazole Sodium 40 Mg/10 Ml Vial) 40 mg IVPUSH DAILY@0630 [facility] Pramipexole Dihydrochloride (Pramipexole Di-Hcl 0.25 Mg Tablet) 0.5 mg PO TID [facility] Last Admin: 05/11/25 10:56 Dose: Not Given Ropinirole HCl (Ropinirole Hcl 2 Mg Tablet) 2 mg PO BID [facility] Last Admin: 05/11/25 10:56 Dose: Not Given Sodium Chloride (0.9 % Sodium Chloride Flush 3 Ml Syringe) 3 ml IVFLUSH QSHIFT [facility] Last Admin: 05/11/25 07:25 Dose: Not Given Tizanidine HCl (Tizanidine Hcl 4 Mg Tablet) 2 mg PO DAILY@1700 [facility] Last Admin: 05/10/25 17:50 Dose: 2 mg Trazodone HCl (Trazodone Hcl 50 Mg Tablet) 150 mg PO BEDTIME PRN PRN Reason: Insomnia Vitamin D (Cholecalciferol (Vitamin D3) 25 Mcg Tablet) 125 mcg PO DAILY [facility] Last Admin: 05/11/25 10:55 Dose: Not Given Home Medications ?Medication ?Instructions ?Recorded ?Confirmed ?Last Taken ?Type bupropion HCl 150 mg 24 hr tablet, 150 mg PO DAILY 05/08/25 05/08/25 History extended release oxygen-air delivery systems ##1 04/25/20 02/20/2511/10 History aspirin 81 mg chewable tablet 81 mg PO DAILY 10/01/21 05/08/25 05/08/25 History hydroxyzine pamoate 25 mg capsule 25 mg PO DAILY 08/1305/08/25 05/08/25 History albuterol sulfate 90 mcg/actuation 2 puff inhalation Q 4H PRN 05/08/25 05/08/25 Unknown History aerosol inhaler Shortness Of Breath Or Wheez ing cholecalciferol (vitamin D3) 125 125 mcg PO DAILY 04/1305/08/25 05/08/25 History mcg (5,000 unit) capsule citalopram 20 mg tablet 20 mg PO DAILY 05/08/2504/1305/08/25 History dulaglutide 1.5 mg/0.5 mL 1.5 mg subcut TH 05/08/2505/04/25 History subcutaneous pen injector (Trulicity) gabapentin 300 mg capsule 300 mg PO BID 05/08/2505/0805/08/25 History insulin aspart U-100 100 unit/mL See Protocol subcut B IDAC 05/08/25 05/08/25 05/08/25 History (3 mL) subcutaneous pen (Novolog FlexPen U-100 Insulin aspart) [id number] 18 mg-FA 400 1 tab PO DAILY 05/08/25 05/08/25 05/08/25 History mcg-calcium 500 mg-vit K 50 mcg tablet (Women's Multivitamin) pramipexole 0.5 mg tablet 0.5 mg PO TID 05/08/2505/0805/08/25 History trazodone 150 mg tablet 150 mg PO BEDTIME PRN insomn ia 05/08/25 05/08/25 05/07/25 History Physical Exam Vital Signs: Last Vital Signs Temp 98 F 05/11/25 07:08 Pulse 76 05/11/25 07:08 Resp 17 05/11/25 07:08 BP 120/56 L 05/11/25 07:08 Pulse Ox 98 05/11/25 07:08 O2 Del Method Nasal Cannula 05/11/25 07:08 O2 Flow Rate 2 05/11/25 07:08 BMI result Body Mass Index 41.2 Comfortable Neck supple no JVD. Lungs entry equal no rales. Heart S1-S2 heard no gallop or rub. Abdomen soft nontender. Neuro alert awake oriented. No asterixis. Extremities no edema. Results Lab Results 05/11/25 06:10 05/11/25 06:10 Lab results: Chemistry 05/09/25 05/10/25 05/11/25 05:33 10:03 06:10 Sodium 142 139 141 Potassium 5.3 H D 4.4 4.6 Carbon Dioxide 31 H 29 26 BUN 29 H 30 H 25 H Creatinine 2.44 H 2.70 H 2.08 H Calcium 8.5 D 8.7 8.6 Hematology 05/09/25 05/10/25 05/11/25 05:33 10:03 06:10 WBC 12.0 H 12.0 H 8.6 Hgb 10.2 L 10.2 L 10.0 L Plt Count 231 204 194 Urine Studies 05/10/25 13:36 Urine Creatinine 98.04 Assessment and Plan (1) Acute kidney injury superimposed on CKD: Status: Acute Plan AGUSTIN superimposed on CKD in a setting of colitis. AGUSTIN is most likely due to hypoperfusion. She has underlying CKD with a baseline creatinine of around 1.4-1.8 mg/dL. Recommendations Keep intake more than output Avoid hypotension. Continue to avoid nephrotoxic agents. Adjust all medications for a GFR of less than 30 mL/minute Monitor urine output. Expect renal recovery. No indication for dialysis. Shall follow along with the team Procedures Date of Service Date of Service: 05/11/25
[2025-05-11 15:34] VITALS: BP 135/60; PULSE 100; RESP 18; TEMP 36.5; O2SAT 93
[2025-05-11 16:21] LABS: Glucose, Whole Blood 97 mg/dL (60-115)
[2025-05-11 19:59] VITALS: BP 93/60; PULSE 71; RESP 18; TEMP 35.8; O2SAT 97
[2025-05-11 20:09] LABS: Glucose, Whole Blood 141 mg/dL (60-115)
[2025-05-11] MEDS: oxyCODONE HCl Immed Release 5 MG TABLET PO (21:28)
[2025-05-12] VITALS (7 sets, daily range): BP systolic 114–158; BP diastolic 54–79; PULSE 79–97; RESP 17–20; TEMP 35.8–37; O2SAT 92–95
[2025-05-12] MEDS: oxyCODONE HCl Immed Release 5 MG TABLET PO ×2 (05:21→20:41)
[2025-05-12 07:14] LABS: Glucose, Whole Blood 120 mg/dL (60-115)
[2025-05-12 07:40] LABS: Hematocrit 33.4 % (37.0-47.0); Hemoglobin 10.0 g/dl (12.0-16.0); Mean Corpuscular HGB Conc 29.9 g/dl (31.0-35.0); Mean Corpuscular Hemoglobin 27.8 pg (27.0-33.0); Mean Corpuscular Volume 92.8 fL (80.0-98.0); NRBC Abs Auto 0.000 X10*3/uL (0.0-0.012); NRBC Pct Auto 0.0 /100WBC (0.0-0.2); Platelet Count 212 X10*3/uL (160-400); Red Blood Count 3.60 X10*6/uL (4.20-5.50); White Blood Count 7.5 X10*3/uL (4.8-10.8)
[2025-05-12 07:46] LABS: Anion Gap 15 (12-20); Blood Urea Nitrogen 17 mg/dL (9-16); Calcium 8.4 mg/dL (8.4-10.2); Carbon Dioxide 25 mmol/L (22-29); Chloride 109 mmol/L (96-108); Creatinine Clr Calc Pharmacy 30.1; Estimated Glomerular Filt Rate 30; Potassium 4.6 mmol/L (3.3-5.1); Sodium 144 mmol/L (135-145)
[2025-05-12] MEDS: buPROPion HCl XL 150 MG TAB.ER.24H PO (09:31)
[2025-05-12] MEDS: Insulin Glargine,Hum.rec.anlog 100 UNIT/ML 10 ML VIAL 20 UNIT SUBCUT (09:31)
--- NOTE | 2025-05-12 09:37 | P.PNGS_ITS ---
Subjective Subjective Date of Service: 05/12/25 <Stan Reddy PA-C - Last Filed: 05/12/25 09:43> 05/12/25 <Juan Quintanilla MD - Last Filed: 05/12/25 15:47> Interval history: doing well this morning, denies abdominal pain today. denies nausea, vomiting. Diet was advanced, she is tolerating this well. Passing small amounts of gas, continues to pass bowel movements, denies blood in BM. <Stan Reddy PA-C - Last Filed: 05/12/25 09:43> Physical Exam 2 Vital Signs: Vital Signs: Last Vital Signs Temp 98.3 F 05/12/25 08:56 Pulse 86 05/12/25 08:56 Resp 17 05/12/25 08:56 BP 158/72 H 05/12/25 08:56 Pulse Ox 95 05/12/25 08:56 O2 Del Method Nasal Cannula 05/12/25 08:56 O2 Flow Rate 2 05/12/25 08:56 BMI result Body Mass Index 41.2 <Stan Reddy PA-C - Last Filed: 05/12/25 09:43> Const: General: comfortable and no acute distress <Stan Reddy PA-C - Last Filed: 05/12/25 09:43> Orientation/consciousness: patient oriented x3 <DONNA Benoit Last Filed: 05/12/25 09:43> Resp: Other: supplemental O2 <Stan Reddy PA-C - Last Filed: 05/12/25 09:43> Effort & Inspection: able to speak in complete sentences <DONNA Benoit Last Filed: 05/12/25 09:43> GI: Inspection: No distended <DONNA Benoit Last Filed: 05/12/25 09:43> Palpation (GI): Soft to palpation, nontender and no guarding <DONNA Benoit Last Filed: 05/12/25 09:43> Neuro: General: patient oriented x3 <DONNA Benoit Last Filed: 05/12/25 09:43> Objective Data Active Medications Acetaminophen (Acetaminophen 325 Mg Tablet) 650 mg PO Q6H PRN PRN Reason: Pain, Mild 1-3,fever,headache Albuterol Sulfate (Albuterol Sulfate 90 Mcg 8 Gm Inhaler) 2 puff INHALE Q4H PRN PRN Reason: Shortness Of Breath Or Wheezing Last Admin: 05/10/25 12:12 Dose: 2 puff Documented By: MAHESH Aspirin (Aspirin 81 Mg Tab.Chew) 81 mg PO DAILY [facility] Last Admin: 05/12/25 09:31 Dose: 81 mg Documented By: ALEXA Atorvastatin Calcium (Atorvastatin Calcium 80 Mg Tablet) 80 mg PO DAILY [facility] Last Admin: 05/12/25 09:31 Dose: 80 mg Documented By: ALEXA Bupropion HCl (Bupropion Hcl Xl 150 Mg Tab.Er.24h) 150 mg PO DAILY [facility] Last Admin: 05/12/25 09:31 Dose: 150 mg Documented By: ALEXA Calcium Carbonate (Calcium Carbonate 750 Mg Tab.Chew) 750 mg PO Q4H PRN PRN Reason: Heartburn Dextrose (Dextrose 50 % 25 Gm/50 Ml Syringe) 25 gm IVPUSH Q15M PRN; Protocol PRN Reason: per Hypoglycemia Standing Ord. Escitalopram Oxalate (Escitalopram Oxalate 10 Mg Tablet) 10 mg PO DAILY [facility] Last Admin: 05/12/25 09:31 Dose: 10 mg Documented By: ALEXA Gabapentin (Gabapentin 300 Mg Capsule) 300 mg PO BID [facility] Last Admin: 05/12/25 09:31 Dose: 300 mg Documented By: ALEXA Glucose (Glucose Gel 15 Gm Gel..Gram.) 15 gm PO Q15M PRN; Protocol PRN Reason: per Hypoglycemia Standing Ord. Heparin Sodium (Porcine) (Heparin Sodium,Porcine 5,000 Unit/Ml Vial) 5,000 unit SUBCUT Q12H [facility] Last Admin: 05/12/25 05:21 Dose: 5,000 unit Documented By: SAROJ Hydroxyzine HCl (Hydroxyzine Hcl 25 Mg Tablet) 25 mg PO DAILY [facility] Last Admin: 05/12/25 09:31 Dose: 25 mg Documented By: ALEXA Piperacillin Sod/Tazobactam (Sod 2.25 gm/ Sodium Chloride) 50 mls @ 100 mls/hr IV Q6H [facility] Last Infusion: 05/12/25 06:05 Dose: Infused Documented By: SAROJ Insulin Glargine (Insulin Glargine,Hum.Rec.Anlog 100 Unit/Ml 10 Ml Vial) 20 unit SUBCUT DAILY [facility] Last Admin: 05/12/25 09:31 Dose: 20 unit Documented By: ALEXA Insulin Human Lispro (Insulin Lispro 100 Unit/Ml 3 Ml Vial) 0 unit SUBCUT QIDACHS [facility]; Protocol Last Admin: 05/12/25 07:36 Dose: Not Given Documented By: ALEXA Non-Admin Reason: No Insulin Coverage Lisinopril (Lisinopril 20 Mg Tablet) 20 mg PO DAILY [facility]; Protocol Last Admin: 05/12/25 09:31 Dose: 20 mg Documented By: ALEXA Magnesium Hydroxide (Milk Of Magnesia 30 Ml Oral.Susp) 30 ml PO DAILY PRN PRN Reason: Constipation Last Admin: 05/10/25 12:12 Dose: 30 ml Documented By: MAHESH Melatonin (Melatonin 3 Mg Tablet) 6 mg PO BEDTIME PRN PRN Reason: Insomnia Montelukast Sodium (Montelukast Sodium 10 Mg Tablet) 10 mg PO DAILY [facility] Last Admin: 05/12/25 09:31 Dose: 10 mg Documented By: ALEXA Morphine Sulfate (Morphine Sulfate 4 Mg/Ml Cartridge) 2 mg IVPUSH Q6H PRN; Protocol PRN Reason: Pain, Severe (Pain Scale 7-10) Ondansetron HCl (Ondansetron Hcl 4 Mg/2 Ml Vial) 4 mg IVPUSH Q8H PRN PRN Reason: Nausea and Vomiting Last Admin: 05/11/25 09:10 Dose: 4 mg Documented By: ALEXA Oxycodone HCl (Oxycodone Hcl Immed Release 5 Mg Tablet) 5 mg PO Q6H PRN PRN Reason: Pain, Severe (Pain Scale 7-10) Last Admin: 05/12/25 05:21 Dose: 5 mg Documented By: SAROJ Pantoprazole Sodium (Pantoprazole Sodium 40 Mg/10 Ml Vial) 40 mg IVPUSH DAILY@0630 [facility] Last Admin: 05/12/25 05:21 Dose: 40 mg Documented By: SAROJ Pramipexole Dihydrochloride (Pramipexole Di-Hcl 0.25 Mg Tablet) 0.5 mg PO TID [facility] Last Admin: 05/12/25 09:31 Dose: 0.5 mg Documented By: ALEXA Ropinirole HCl (Ropinirole Hcl 2 Mg Tablet) 2 mg PO BID [facility] Last Admin: 05/12/25 09:31 Dose: 2 mg Documented By: ALEXA Sodium Chloride (0.9 % Sodium Chloride Flush 3 Ml Syringe) 3 ml IVFLUSH QSHIFT [facility] Last Admin: 05/12/25 07:36 Dose: Not Given Documented By: ALEXA Non-Admin Reason: IV Running Tizanidine HCl (Tizanidine Hcl 4 Mg Tablet) 2 mg PO DAILY@1700 [facility] Last Admin: 05/11/25 17:34 Dose: 2 mg Documented By: ALEXA Trazodone HCl (Trazodone Hcl 50 Mg Tablet) 150 mg PO BEDTIME PRN PRN Reason: Insomnia Vitamin D (Cholecalciferol (Vitamin D3) 25 Mcg Tablet) 125 mcg PO DAILY [facility] Last Admin: 05/12/25 09:31 Dose: 125 mcg Documented By: ALEXA <Stan Reddy PA-C - Last Filed: 05/12/25 09:43> Labs CBC & Chem 7: 05/12/25 06:16 05/12/25 06:16 <Stan Reddy PA-C - Last Filed: 05/12/25 09:43> Labs: Laboratory Results - last 24 hr 05/11/25 05/11/25 05/11/25 11:04 16:15 20:05 MCV MCH MCHC RDW Plt Count MPV Absolute Nucleated RBC Nucleated RBC % (auto) Anion Gap Estim Creat Clear Calc Estimated GFR POC Glucose 102 97 141 H Random Glucose Calcium 05/12/25 05/12/25 06:16 06:57 MCV 92.8 MCH 27.8 MCHC 29.9 L RDW 13.1 Plt Count 212 MPV 11.7 Absolute Nucleated RBC 0.000 Nucleated RBC % (auto) 0.0 Anion Gap 15 Estim Creat Clear Calc 30.1 Estimated GFR 30 POC Glucose 120 H Random Glucose 105 Calcium 8.4 <Stan Reddy PA-C - Last Filed: 05/12/25 09:43> Procedures Date of Service Date of Service: 05/12/25 <Stan Reddy PA-C - Last Filed: 05/12/25 09:43> 05/12/25 <Juan Quintanilla MD - Last Filed: 05/12/25 15:47> Progress Note: A&P Assessment and plan (1) Colitis: Status: Acute <tSan Reddy PA-C - Last Filed: 05/12/25 09:43> Assessment and Plan: Tolerating diet Has flatus and BMs Abdominal exam very benign, no significant tenderness Looks well overall No fever No surgical intervention Diet as tolerated Care as per the hospitalist service Seen and examined independently <Juan Quintanilla MD - Last Filed: 05/12/25 15:47> (2) BRBPR (bright red blood per rectum): Status: Acute <Stan Reddy PA-C - Last Filed: 05/12/25 09:43> Assessment and Plan: 75 year old female admitted for abdominal pain, BRBPR, likely colitis, possibly ischemic in nature. Today feeling better, denies pain. She is denying nausea, vomiting. Passing small amounts of gas, regular bowel movements, nonbloody. diet was advanced, she is tolerating solids. abdomen exam is soft, benign. H/h stable, kidney function improving. no current plan for surgical intervention. GI consult appreciated, recommending colonoscopy in 6-8 weeks continue diet as tolerated recommend colace BID for constipation. <Stan Reddy PA-C - Last Filed: 05/12/25 09:43> Time Spent With Patient Time: Total time managing care of this patient today ____ minutes. <Stan Reddy PA-C - Last Filed: 05/12/25 09:43> Quality Stroke Does the patient have a stroke diagnosis?: No <Stan Reddy PA-C - Last Filed: 05/12/25 09:43> VTE Prior VTE?: No <Stan Reddy PA-C - Last Filed: 05/12/25 09:43> VTE Risk Level:: Medical - moderate - high <Stan Reddy PA-C - Last Filed: 05/12/25 09:43> VTE Device Contraindication: Treatment Not Indicated <Stan Reddy PA-C - Last Filed: 05/12/25 09:43> VTE Drug Contraindication: N/A - Med Ordered <Stan Reddy PA-C - Last Filed: 05/12/25 09:43>
[2025-05-12 11:08] LABS: Glucose, Whole Blood 206 mg/dL (60-115)
--- NOTE | 2025-05-12 12:39 | MHC.CM.PN ---
EMR REVIEWED AND PER MD ROUNDS, PT IS NOT YET MEDICALLY CLEARED FOR DC. COMFORT + VNA UPDATED VIA [facility] AND FOLLOWING. CM WILL CONTINUE TO FOLLOW FOR ANY CHANGE TO DC PLAN/NEEDS.
[2025-05-12] MEDS: 0.9 % Sodium Chloride Flush 3 ML SYRINGE IVFLUSH ×2 (15:19→20:48)
--- NOTE | 2025-05-12 16:32 | HO.PM.IMPN ---
Subjective Subjective Date of Service: 05/12/25 Interval History: Patient seen examined at bedside this morning, patient states that she is feeling better, tolerating p.o. medications. No nausea or vomiting at this time. No concerns from nursing staff. Review of Systems Review of Systems: Yes all other systems are reviewed and are negative Physical Exam Exam: Exam: General: AxOx3, No acute distress Head: AT/NC ENT: Moist mucous membranes Neck: supple CVS; RRR, S1 S2 normal Lungs: Clear bilateral breath sounds, no wheezes or crackles Abd: Soft non tender, non distended Ext: No edema and no calf tenderness MSK: moving all 4 limbs Skin: No cyanosis or edema Psych: Cooperative with exam Neurology: no focal deficit Vital Signs: Vital Signs: Last Vital Signs Temp 97 F 05/12/25 15:54 Pulse 95 05/12/25 16:12 Resp 20 05/12/25 15:54 BP 135/62 05/12/25 16:12 Pulse Ox 94 05/12/25 16:12 O2 Del Method Nasal Cannula 05/12/25 15:54 O2 Flow Rate 2 05/12/25 15:54 BMI result Body Mass Index 41.2 Objective Data Active Medications Acetaminophen (Acetaminophen 325 Mg Tablet) 650 mg PO Q6H PRN PRN Reason: Pain, Mild 1-3,fever,headache Albuterol Sulfate (Albuterol Sulfate 90 Mcg 8 Gm Inhaler) 2 puff INHALE Q4H PRN PRN Reason: Shortness Of Breath Or Wheezing Last Admin: 05/10/25 12:12 Dose: 2 puff Documented By: MAHESH Amoxicillin/Clavulanate Potassium (Amoxicillin/Potassium Clav 875 Mg Tablet) 875 mg PO Q12H [facility] Stop: 05/17/25 11:29 Last Admin: 05/12/25 11:50 Dose: 875 mg Documented By: ALEXA Aspirin (Aspirin 81 Mg Tab.Chew) 81 mg PO DAILY [facility] Last Admin: 05/12/25 09:31 Dose: 81 mg Documented By: ALEXA Atorvastatin Calcium (Atorvastatin Calcium 80 Mg Tablet) 80 mg PO DAILY [facility] Last Admin: 05/12/25 09:31 Dose: 80 mg Documented By: ALEXA Bupropion HCl (Bupropion Hcl Xl 150 Mg Tab.Er.24h) 150 mg PO DAILY [facility] Last Admin: 05/12/25 09:31 Dose: 150 mg Documented By: ALEXA Calcium Carbonate (Calcium Carbonate 750 Mg Tab.Chew) 750 mg PO Q4H PRN PRN Reason: Heartburn Dextrose (Dextrose 50 % 25 Gm/50 Ml Syringe) 25 gm IVPUSH Q15M PRN; Protocol PRN Reason: per Hypoglycemia Standing Ord. Escitalopram Oxalate (Escitalopram Oxalate 10 Mg Tablet) 10 mg PO DAILY [facility] Last Admin: 05/12/25 09:31 Dose: 10 mg Documented By: ALEXA Gabapentin (Gabapentin 300 Mg Capsule) 300 mg PO BID [facility] Last Admin: 05/12/25 09:31 Dose: 300 mg Documented By: ALEXA Glucose (Glucose Gel 15 Gm Gel..Gram.) 15 gm PO Q15M PRN; Protocol PRN Reason: per Hypoglycemia Standing Ord. Heparin Sodium (Porcine) (Heparin Sodium,Porcine 5,000 Unit/Ml Vial) 5,000 unit SUBCUT Q12H [facility] Last Admin: 05/12/25 05:21 Dose: 5,000 unit Documented By: SAROJ Hydroxyzine HCl (Hydroxyzine Hcl 25 Mg Tablet) 25 mg PO DAILY [facility] Last Admin: 05/12/25 09:31 Dose: 25 mg Documented By: ALEXA Insulin Glargine (Insulin Glargine,Hum.Rec.Anlog 100 Unit/Ml 10 Ml Vial) 20 unit SUBCUT DAILY [facility] Last Admin: 05/12/25 09:31 Dose: 20 unit Documented By: ALEXA Insulin Human Lispro (Insulin Lispro 100 Unit/Ml 3 Ml Vial) 0 unit SUBCUT QIDACHS [facility]; Protocol Last Admin: 05/12/25 11:50 Dose: 4 unit Documented By: ALEXA Lisinopril (Lisinopril 20 Mg Tablet) 20 mg PO DAILY [facility]; Protocol Last Admin: 05/12/25 09:31 Dose: 20 mg Documented By: ALEXA Magnesium Hydroxide (Milk Of Magnesia 30 Ml Oral.Susp) 30 ml PO DAILY PRN PRN Reason: Constipation Last Admin: 05/10/25 12:12 Dose: 30 ml Documented By: MAHESH Melatonin (Melatonin 3 Mg Tablet) 6 mg PO BEDTIME PRN PRN Reason: Insomnia Metoclopramide HCl (Metoclopramide Hcl 5 Mg Tablet) 5 mg PO TIDAC [facility] Last Admin: 05/12/25 11:50 Dose: 5 mg Documented By: ALEXA Montelukast Sodium (Montelukast Sodium 10 Mg Tablet) 10 mg PO DAILY [facility] Last Admin: 05/12/25 09:31 Dose: 10 mg Documented By: ALEXA Morphine Sulfate (Morphine Sulfate 4 Mg/Ml Cartridge) 2 mg IVPUSH Q6H PRN; Protocol PRN Reason: Pain, Severe (Pain Scale 7-10) Ondansetron HCl (Ondansetron Hcl 4 Mg/2 Ml Vial) 4 mg IVPUSH Q8H PRN PRN Reason: Nausea and Vomiting Last Admin: 05/11/25 09:10 Dose: 4 mg Documented By: ALEXA Oxycodone HCl (Oxycodone Hcl Immed Release 5 Mg Tablet) 5 mg PO Q6H PRN PRN Reason: Pain, Severe (Pain Scale 7-10) Last Admin: 05/12/25 05:21 Dose: 5 mg Documented By: SAROJ Pantoprazole Sodium (Pantoprazole Sodium 40 Mg/10 Ml Vial) 40 mg IVPUSH DAILY@0630 [facility] Last Admin: 05/12/25 05:21 Dose: 40 mg Documented By: SAROJ Pramipexole Dihydrochloride (Pramipexole Di-Hcl 0.25 Mg Tablet) 0.5 mg PO TID [facility] Last Admin: 05/12/25 15:17 Dose: 0.5 mg Documented By: ALEXA Ropinirole HCl (Ropinirole Hcl 2 Mg Tablet) 2 mg PO BID [facility] Last Admin: 05/12/25 09:31 Dose: 2 mg Documented By: ALEXA Sodium Chloride (0.9 % Sodium Chloride Flush 3 Ml Syringe) 3 ml IVFLUSH QSHIFT [facility] Last Admin: 05/12/25 15:19 Dose: 3 ml Documented By: ALEXA Tizanidine HCl (Tizanidine Hcl 4 Mg Tablet) 2 mg PO DAILY@1700 [facility] Last Admin: 05/11/25 17:34 Dose: 2 mg Documented By: ALEXA Trazodone HCl (Trazodone Hcl 50 Mg Tablet) 150 mg PO BEDTIME PRN PRN Reason: Insomnia Vitamin D (Cholecalciferol (Vitamin D3) 25 Mcg Tablet) 125 mcg PO DAILY [facility] Last Admin: 05/12/25 09:31 Dose: 125 mcg Documented By: ALEXA Labs 05/12/25 06:16 05/12/25 06:16 Labs: Laboratory Results - last 24 hr 05/11/25 05/12/25 05/12/25 20:05 06:16 06:57 MCV 92.8 MCH 27.8 MCHC 29.9 L RDW 13.1 Plt Count 212 MPV 11.7 Absolute Nucleated RBC 0.000 Nucleated RBC % (auto) 0.0 Anion Gap 15 Estim Creat Clear Calc 30.1 Estimated GFR 30 POC Glucose 141 H 120 H Random Glucose 105 Calcium 8.4 05/12/25 11:02 MCV MCH MCHC RDW Plt Count MPV Absolute Nucleated RBC Nucleated RBC % (auto) Anion Gap Estim Creat Clear Calc Estimated GFR POC Glucose 206 H Random Glucose Calcium Assessment and Plan (1) Diabetes: Status: Acute (2) Acute colitis: Status: Acute (3) Acute kidney injury superimposed on CKD: Status: Acute Plan 75 year old women admitted with abdominal pain with imaging suggested of acute colitis, with recent labs showing AGUSTIN Colitis Abdominal CT showing acute colitis to left hemicolon likely related to diverticulitis will transtition to Augmentin from Zosyn, now that patient is tolerating PO Pain management GI consulted, suggested follow up in outpatient setting for colonoscopy Continue diabetic soft diet Hypertension stable BP continue lisinopril Diabetes possible gastroparesis Sliding scale Continue Lantus will give reglan PO AGUSTIN on Chronic kidney disease stage 3, improving S/P IV Fluids, encourage PO fluid intake History of COPD with chronic respiratory failure No exacerbation Continue albuterol On baseline 2 L of oxygen Mental health Continue home medications Coronary artery disease Continue aspirin and statin Restless leg syndrome Continue allopurinol DVT prophylaxis with heparin Full code Quality Stroke Does the patient have a stroke diagnosis?: No VTE Prior VTE?: No VTE Risk Level:: Medical - moderate - high VTE Device Contraindication: Treatment Not Indicated VTE Drug Contraindication: N/A - Med Ordered
[2025-05-12 16:46] LABS: Glucose, Whole Blood 77 mg/dL (60-115)
--- NOTE | 2025-05-12 17:20 | P.PNNP_ITS ---
Subjective Subjective Date of Service: 05/12/25 Interval history: Patient seen examined at bedside this morning, patient states that she is feeling better, tolerating p.o. medications. No nausea or vomiting at this time. No concerns from nursing staff. Physical Exam 2 Vital Signs: Vital Signs: Last Vital Signs Temp 97 F 05/12/25 15:54 Pulse 95 05/12/25 16:12 Resp 20 05/12/25 15:54 BP 135/62 05/12/25 16:12 Pulse Ox 94 05/12/25 16:12 O2 Del Method Nasal Cannula 05/12/25 15:54 O2 Flow Rate 2 05/12/25 15:54 BMI result Body Mass Index 41.2 Objective Data Labs 05/12/25 06:16 05/12/25 06:16 Labs: Laboratory Results - last 24 hr 05/11/25 05/12/25 05/12/25 20:05 06:16 06:57 WBC 7.5 RBC 3.60 L Hgb 10.0 L Hct 33.4 L MCV 92.8 MCH 27.8 MCHC 29.9 L RDW 13.1 Plt Count 212 MPV 11.7 Absolute Nucleated RBC 0.000 Nucleated RBC % (auto) 0.0 Sodium 144 Potassium 4.6 Chloride 109 H Carbon Dioxide 25 Anion Gap 15 BUN 17 H Creatinine 1.67 H Estim Creat Clear Calc 30.1 Estimated GFR 30 POC Glucose 141 H 120 H Random Glucose 105 Calcium 8.4 05/12/25 05/12/25 11:02 16:42 WBC RBC Hgb Hct MCV MCH MCHC RDW Plt Count MPV Absolute Nucleated RBC Nucleated RBC % (auto) Sodium Potassium Chloride Carbon Dioxide Anion Gap BUN Creatinine Estim Creat Clear Calc Estimated GFR POC Glucose 206 H 77 Random Glucose Calcium Microbiology Microbiology Results: Microbiology 05/08/25 10:08 Blood - Venous Blood Culture - Preliminary No growth after 48 hours. 05/08/25 10:08 Blood - Venous Blood Culture - Preliminary No growth after 48 hours. Procedures Date of Service Date of Service: 05/12/25 Assessment & Plan Assessment and plan (1) Acute kidney injury superimposed on CKD: Status: Acute Plan AGUSTIN superimposed on CKD in a setting of colitis. AGUSTIN is most likely due to hypoperfusion. She has underlying CKD with a baseline creatinine of around 1.4-1.8 mg/dL. Renal function is better Keep intake more than output Avoid hypotension. Continue to avoid nephrotoxic agents. Adjust all medications for a GFR of less than 30 mL/minute Monitor urine output. Expect renal recovery. No indication for dialysis. Shall follow along with the team Time Spent With Patient Time: Total time managing care of this patient today ____ minutes. Progress Note: Quality Stroke Does the patient have a stroke diagnosis?: No
[2025-05-12 21:01] LABS: Glucose, Whole Blood 212 mg/dL (60-115)
[2025-05-13 03:06] VITALS: BP 150/69; PULSE 81; RESP 18; TEMP 35.9; O2SAT 96
[2025-05-13 07:09] LABS: Hematocrit 34.2 % (37.0-47.0); Hemoglobin 10.4 g/dl (12.0-16.0); Mean Corpuscular HGB Conc 30.4 g/dl (31.0-35.0); Mean Corpuscular Hemoglobin 27.8 pg (27.0-33.0); Mean Corpuscular Volume 91.4 fL (80.0-98.0); NRBC Abs Auto 0.000 X10*3/uL (0.0-0.012); NRBC Pct Auto 0.0 /100WBC (0.0-0.2); Platelet Count 199 X10*3/uL (160-400); Red Blood Count 3.74 X10*6/uL (4.20-5.50); White Blood Count 7.2 X10*3/uL (4.8-10.8)
[2025-05-13 07:22] LABS: Anion Gap 12 (12-20); Blood Urea Nitrogen 13 mg/dL (9-16); Calcium 8.6 mg/dL (8.4-10.2); Carbon Dioxide 29 mmol/L (22-29); Chloride 108 mmol/L (96-108); Creatinine Clr Calc Pharmacy 35.4; Estimated Glomerular Filt Rate 36; Potassium 4.3 mmol/L (3.3-5.1); Sodium 145 mmol/L (135-145)
[2025-05-13 07:26] VITALS: BP 150/69; PULSE 77; RESP 18; TEMP 36; O2SAT 98
[2025-05-13 07:48] LABS: Glucose, Whole Blood 93 mg/dL (60-115)
[2025-05-13] MEDS: buPROPion HCl XL 150 MG TAB.ER.24H PO (07:57)
[2025-05-13] MEDS: 0.9 % Sodium Chloride Flush 3 ML SYRINGE IVFLUSH (07:58)
[2025-05-13] MEDS: Insulin Glargine,Hum.rec.anlog 100 UNIT/ML 10 ML VIAL 20 UNIT SUBCUT (08:13)
[2025-05-13] MEDS: oxyCODONE HCl Immed Release 5 MG TABLET PO (08:51)
--- NOTE | 2025-05-13 10:17 | PM.PNGS ---
Subjective Subjective Date of Service: 05/13/25 Interval history: Denies abdominal pain Complains of back pain Complains of restless legs Very anxious currently Tolerating diet Physical Exam Vital Signs: Vital Signs: Last Vital Signs Temp 96.8 F 05/13/25 07:26 Pulse 77 05/13/25 07:26 Resp 18 05/13/25 07:26 BP 150/69 H 05/13/25 07:26 Pulse Ox 98 05/13/25 07:26 O2 Del Method Nasal Cannula 05/13/25 07:26 O2 Flow Rate 2 05/13/25 07:26 BMI result Body Mass Index 41.2 Const: General: comfortable and no acute distress Resp: Effort & Inspection: normal respiratory effort Cardio: Rate: regular rate GI: Palpation (GI): Soft to palpation, not firm and nontender Objective Data Active Medications Acetaminophen (Acetaminophen 325 Mg Tablet) 650 mg PO Q6H PRN PRN Reason: Pain, Mild 1-3,fever,headache Albuterol Sulfate (Albuterol Sulfate 90 Mcg 8 Gm Inhaler) 2 puff INHALE Q4H PRN PRN Reason: Shortness Of Breath Or Wheezing Last Admin: 05/10/25 12:12 Dose: 2 puff Documented By: MAHESH Amoxicillin/Clavulanate Potassium (Amoxicillin/Potassium Clav 875 Mg Tablet) 875 mg PO Q12H [facility] Stop: 05/17/25 11:29 Last Admin: 05/12/25 21:42 Dose: 875 mg Documented By: SAROJ Aspirin (Aspirin 81 Mg Tab.Chew) 81 mg PO DAILY [facility] Last Admin: 05/13/25 07:58 Dose: 81 mg Documented By: MONTSERRAT Atorvastatin Calcium (Atorvastatin Calcium 80 Mg Tablet) 80 mg PO DAILY [facility] Last Admin: 05/13/25 07:57 Dose: 80 mg Documented By: MONTSERRAT Bupropion HCl (Bupropion Hcl Xl 150 Mg Tab.Er.24h) 150 mg PO DAILY [facility] Last Admin: 05/13/25 07:57 Dose: 150 mg Documented By: MONTSERRAT Calcium Carbonate (Calcium Carbonate 750 Mg Tab.Chew) 750 mg PO Q4H PRN PRN Reason: Heartburn Dextrose (Dextrose 50 % 25 Gm/50 Ml Syringe) 25 gm IVPUSH Q15M PRN; Protocol PRN Reason: per Hypoglycemia Standing Ord. Escitalopram Oxalate (Escitalopram Oxalate 10 Mg Tablet) 10 mg PO DAILY [facility] Last Admin: 05/13/25 07:58 Dose: 10 mg Documented By: MONTSERRAT Gabapentin (Gabapentin 300 Mg Capsule) 300 mg PO BID [facility] Last Admin: 05/13/25 07:58 Dose: 300 mg Documented By: MONTSERRAT Glucose (Glucose Gel 15 Gm Gel..Gram.) 15 gm PO Q15M PRN; Protocol PRN Reason: per Hypoglycemia Standing Ord. Heparin Sodium (Porcine) (Heparin Sodium,Porcine 5,000 Unit/Ml Vial) 5,000 unit SUBCUT Q12H [facility] Last Admin: 05/13/25 05:37 Dose: 5,000 unit Documented By: SAROJ Hydroxyzine HCl (Hydroxyzine Hcl 25 Mg Tablet) 25 mg PO DAILY [facility] Last Admin: 05/13/25 07:58 Dose: 25 mg Documented By: MONTSERRAT Insulin Glargine (Insulin Glargine,Hum.Rec.Anlog 100 Unit/Ml 10 Ml Vial) 20 unit SUBCUT DAILY [facility] Last Admin: 05/13/25 08:13 Dose: 20 unit Documented By: MONTSERRAT Insulin Human Lispro (Insulin Lispro 100 Unit/Ml 3 Ml Vial) 0 unit SUBCUT QIDACHS [facility]; Protocol Last Admin: 05/13/25 07:50 Dose: Not Given Documented By: MONTSERRAT Non-Admin Reason: No Insulin Coverage Lisinopril (Lisinopril 20 Mg Tablet) 20 mg PO DAILY [facility]; Protocol Last Admin: 05/13/25 07:57 Dose: 20 mg Documented By: MONTSERRAT Magnesium Hydroxide (Milk Of Magnesia 30 Ml Oral.Susp) 30 ml PO DAILY PRN PRN Reason: Constipation Last Admin: 05/10/25 12:12 Dose: 30 ml Documented By: MAHESH Melatonin (Melatonin 3 Mg Tablet) 6 mg PO BEDTIME PRN PRN Reason: Insomnia Metoclopramide HCl (Metoclopramide Hcl 5 Mg Tablet) 5 mg PO TIDAC [facility] Last Admin: 05/13/25 07:58 Dose: 5 mg Documented By: MONTSERRAT Montelukast Sodium (Montelukast Sodium 10 Mg Tablet) 10 mg PO DAILY [facility] Last Admin: 05/13/25 07:57 Dose: 10 mg Documented By: MONTSERRAT Morphine Sulfate (Morphine Sulfate 4 Mg/Ml Cartridge) 2 mg IVPUSH Q6H PRN; Protocol PRN Reason: Pain, Severe (Pain Scale 7-10) Ondansetron HCl (Ondansetron Hcl 4 Mg/2 Ml Vial) 4 mg IVPUSH Q8H PRN PRN Reason: Nausea and Vomiting Last Admin: 05/11/25 09:10 Dose: 4 mg Documented By: ALEXA Oxycodone HCl (Oxycodone Hcl Immed Release 5 Mg Tablet) 5 mg PO Q6H PRN PRN Reason: Pain, Severe (Pain Scale 7-10) Last Admin: 05/13/25 08:51 Dose: 5 mg Documented By: MONTSERRAT Pantoprazole Sodium (Pantoprazole Sodium 40 Mg/10 Ml Vial) 40 mg IVPUSH DAILY@0630 [facility] Last Admin: 05/13/25 05:37 Dose: 40 mg Documented By: SAROJ Pramipexole Dihydrochloride (Pramipexole Di-Hcl 0.25 Mg Tablet) 0.5 mg PO TID [facility] Last Admin: 05/13/25 07:58 Dose: 0.5 mg Documented By: MONTSERRAT Ropinirole HCl (Ropinirole Hcl 2 Mg Tablet) 2 mg PO BID [facility] Last Admin: 05/13/25 07:58 Dose: 2 mg Documented By: MONTSERRAT Sodium Chloride (0.9 % Sodium Chloride Flush 3 Ml Syringe) 3 ml IVFLUSH QSHIFT [facility] Last Admin: 05/13/25 07:58 Dose: 3 ml Documented By: MONTSERRAT Tizanidine HCl (Tizanidine Hcl 4 Mg Tablet) 2 mg PO DAILY@1700 [facility] Last Admin: 05/12/25 16:54 Dose: 2 mg Documented By: ALEXA Trazodone HCl (Trazodone Hcl 50 Mg Tablet) 150 mg PO BEDTIME PRN PRN Reason: Insomnia Last Admin: 05/12/25 20:41 Dose: 150 mg Documented By: SAROJ Vitamin D (Cholecalciferol (Vitamin D3) 25 Mcg Tablet) 125 mcg PO DAILY [facility] Last Admin: 05/13/25 07:57 Dose: 125 mcg Documented By: MONTSERRAT Labs 05/13/25 07:00 05/13/25 07:01 Labs: Laboratory Results - last 24 hr 05/12/25 05/12/25 05/12/25 11:02 16:42 20:33 MCV MCH MCHC RDW Plt Count MPV Absolute Nucleated RBC Nucleated RBC % (auto) Anion Gap Estim Creat Clear Calc Estimated GFR POC Glucose 206 H 77 212 H Random Glucose Calcium 05/13/25 05/13/25 05/13/25 07:00 07:01 07:29 MCV 91.4 MCH 27.8 MCHC 30.4 L RDW 13.1 Plt Count 199 MPV 10.9 Absolute Nucleated RBC 0.000 Nucleated RBC % (auto) 0.0 Anion Gap 12 Estim Creat Clear Calc 35.4 Estimated GFR 36 POC Glucose 93 Random Glucose 94 Calcium 8.6 Procedures Date of Service Date of Service: 05/13/25 Progress Note: A&P Assessment and plan (1) Colitis: Status: Acute Assessment and Plan: Symptoms appear to have resolved Abdomen is soft and benign No tenderness Good GI functions Main complaint today is back pain and restless legs Care as per hospitalist service Time Spent With Patient Time: Total time managing care of this patient today ____ minutes. Quality Stroke Does the patient have a stroke diagnosis?: No VTE Prior VTE?: No VTE Risk Level:: Medical - moderate - high VTE Device Contraindication: Treatment Not Indicated VTE Drug Contraindication: N/A - Med Ordered
[2025-05-13 11:11] LABS: Glucose, Whole Blood 155 mg/dL (60-115)
--- NOTE | 2025-05-13 12:33 | PM.DS ---
DS: Providers Provider Date of Service: 05/13/25 Date of admission: 05/08/25 14:47 Date of discharge: 05/13/25 Primary care physician: Shelbi Perez MD Consults: 05/08/25 16:49 Consult to Gastroenterology Routine Consulting Provider: [facility] Reason for consultation: colitis 05/10/25 15:59 Consult to Nephrology Routine Consulting Provider: [facility] Reason for consultation: AGUSTIN on CKD Has provider been notified: No DS: Diagnosis Discharge Diagnosis (1) Colitis: Status: Acute (2) Acute kidney injury superimposed on CKD: Status: Acute (3) Chronic kidney disease, stage III (moderate): Status: Acute (4) Diabetic gastroparesis: Status: Acute DS: Summary Hospital Course Hospital Course: From the history and physical by the admitting hospitalist, Rebecca Calloway NP, 05/08/25: 75-year-old female with a past medical history of COPD, diabetes, CKD, ALDO, GERD, s/p appendectomy, cholecystectomy, partial colectomy, presenting to the ED complaining of diffuse abdominal pain since this morning. She also reported blood when wiping. She denied nausea or vomiting. No fever, chills, recent travel. Abd CT concering for colitis. She had no fever with mild Leukocytosis. Creat noted to be 1.95 close to baseline. She reported still having an appetite. She was given zosyn, Morphine, IV fluids. She will be admitted for management of colitis 75 year old woman with COPD on home O2, DM, and CKD3 admitted with abdominal pain with imaging suggested of acute colitis, with recent labs showing AGUSTIN. Seen by Gastroenterology and Nephrology while admitted to the hospitalist service. Treated with piperacillin-tazobactam for left hemicolon colitis likely related to diverticulitis; transitioned to amoxicillin-clavulanate as her symptoms improved and she was discharged on this antibiotic. She will need to follow up with [facility] Gastroenterology in 1 month to plan for colonoscopy in 6-8 weeks. Acute kidney injury resolved with IV fluid hydration and SCr on discharge was 1.42; she will follow up with [facility] Nephrology in 1 month. Possible gastroparesis from diabetes leading to nausea/vomiting; started on metoclopramide. Time Attestation Discharge Coordination Time (in mins): 35 Quality: Safe Use of Opioids Does Pt have an Active Cancer Diagnosis on the Problem List?: No Quality: Stroke Does the patient have a stroke diagnosis?: No Physical Exam Vital Signs: Vital Signs: Last Vital Signs Temp 96.8 F 05/13/25 07:26 Pulse 77 05/13/25 07:26 Resp 18 05/13/25 07:26 BP 150/69 H 05/13/25 07:26 Pulse Ox 98 05/13/25 07:26 O2 Del Method Nasal Cannula 05/13/25 07:26 O2 Flow Rate 2 05/13/25 07:26 BMI result Body Mass Index 41.2 Gen: in no acute distress HEENT: sclera anicteric, moist mucus membranes Neck: supple Lungs: clear to auscultation bilaterally Heart: regular rate and rhythm, no murmurs Abd: soft, non-tender, non-distended Ext: no edema Skin: warm/well-perfused Neuro: alert and oriented x3, no focal findings Psych: appropriate affect DS: Data Data Completed and Pending Completed studies during hospitalization [Text1]: Laboratory Results WBC 7.2 X10*3/uL (4.8-10.8) 05/13/25 07:00 RBC 3.74 X10*6/uL (4.20-5.50) L 05/13/25 07:00 Hgb 10.4 g/dl (12.0-16.0) L 05/13/25 07:00 Hct 34.2 % (37.0-47.0) L 05/13/25 07:00 MCV 91.4 fL (80.0-98.0) 05/13/25 07:00 MCH 27.8 pg (27.0-33.0) 05/13/25 07:00 MCHC 30.4 g/dl (31.0-35.0) L 05/13/25 07:00 RDW 13.1 % (11.0-16.0) 05/13/25 07:00 Plt Count 199 X10*3/uL (160-400) 05/13/25 07:00 MPV 10.9 fL (9.4-12.3) 05/13/25 07:00 Immature Gran % (Auto) 0.4 % (0.0-0.4) 05/08/25 09:08 Neut % (Auto) 79.8 % (45-73) H 05/08/25 09:08 Lymph % (Auto) 13.6 % (20-40) L 05/08/25 09:08 [place] % (Auto) 4.5 % (2-11) 05/08/25 09:08 Eos % (Auto) 1.4 % (0-4) 05/08/25 09:08 Baso % (Auto) 0.3 % (0-2) 05/08/25 09:08 Lymph # (Auto) 2.2 X10*3/uL (1.2-4.9) 05/08/25 09:08 [place] # (Auto) 0.7 X10*3/uL (0.1-1.2) 05/08/25 09:08 Eos # (Auto) 0.2 X10*3/uL (0.0-0.4) 05/08/25 09:08 Baso # (Auto) 0.0 X10*3/uL (0.0-0.2) 05/08/25 09:08 Abs Immat Gran (auto) 0.06 X10*3/uL (0.00-0.03) H 05/08/25 09:08 Absolute Neuts (auto) 12.7 x10*3/uL (2.0-8.3) H 05/08/25 09:08 Absolute Nucleated RBC 0.000 X10*3/uL (0.0-0.012) 05/13/25 07:00 Nucleated RBC % (auto) 0.0 /100WBC (0.0-0.2) 05/13/25 07:00 PT 11.8 SEC (10.9-12.4) 05/08/25 09:08 INR 1.0 (0.9-1.1) 05/08/25 09:08 Sodium 145 mmol/L (135-145) 05/13/25 07:01 Potassium 4.3 mmol/L (3.3-5.1) 05/13/25 07:01 Chloride 108 mmol/L (96-108) 05/13/25 07:01 Carbon Dioxide 29 mmol/L (22-29) 05/13/25 07:01 Anion Gap 12 (12-20) 05/13/25 07:01 BUN 13 mg/dL (9-16) 05/13/25 07:01 Creatinine 1.42 mg/dL (0.5-1.4) H 05/13/25 07:01 Estim Creat Clear Calc 35.4 05/13/25 07:01 Estimated GFR 36 05/13/25 07:01 POC Glucose 155 mg/dL (60-115) H 05/13/25 11:05 Random Glucose 94 mg/dL (60-115) 05/13/25 07:01 Lactic Acid 1.6 mmol/L (0.5-2.0) 05/08/25 10:08 Calcium 8.6 mg/dL (8.4-10.2) 05/13/25 07:01 Magnesium 1.9 mg/dL (1.6-2.6) 05/08/25 09:08 Total Bilirubin 1.4 mg/dL (0.0-1.0) H 05/09/25 05:33 Direct Bilirubin 0.1 mg/dL (0.0-0.5) 05/08/25 09:08 AST 86 U/L (5-31) H 05/09/25 05:33 ALT 50 U/L (0-31) H 05/09/25 05:33 Alkaline Phosphatase 69 U/L (39-117) 05/09/25 05:33 Total Protein 6.0 g/dL (6.5-8.0) L 05/09/25 05:33 Albumin 3.4 g/dL (3.5-5.0) L 05/09/25 05:33 Lipase 17 U/L (8-78) 05/08/25 09:08 Urine Color Yellow 05/08/25 10:33 Urine Appearance Clear 05/08/25 10:33 Urine pH 6.0 (5.0-9.0) 05/08/25 10:33 Ur Specific [place] 1.010 (1.005-1.025) 05/08/25 10:33 Urine Protein Negative mg/dL (Neg-Trace) 05/08/25 10:33 Urine Glucose (UA) Negative mg/dL (Negative) 05/08/25 10:33 Urine Ketones Negative mg/dL (Negative) 05/08/25 10:33 Urine Blood Trace (Negative) H 05/08/25 10:33 Urine Nitrite Negative (Negative) 05/08/25 10:33 Ur Leukocyte Esterase Negative (Negative) 05/08/25 10:33 Urine RBC 0-2 /HPF (0-2) 05/08/25 10:33 Urine WBC 0-5 /HPF (0-5) 05/08/25 10:33 Ur Squamous Epith Cells 3-5 /HPF (0-2) 05/08/25 10:33 Urine Bacteria None Seen (None Seen) 05/08/25 10:33 Hyaline Casts 0-2 /LPF (0-2) 05/08/25 10:33 Ur Random Sodium 61.0 mmol/L 05/10/25 13:36 Urine Creatinine 98.04 mg/dL 05/10/25 13:36 Stool Occult Blood POSITIVE (NEGATIVE) 05/08/25 08:15 Blood Type A Positive 05/08/25 13:43 Antibody Screen NEGATIVE 05/08/25 13:43 Impressions Abdomen/Pelvis CT 05/08/25 09:52 IMPRESSION: Concerning acute colitis, left hemicolon. Probably related to diverticulitis although ischemic colitis cannot be entirely excluded. Fleischner guidelines were followed. Electronically signed by: Thomas Serna MD 05/08/2025 10:44 AM EDT RP Retroperitoneum Ultrasound 05/10/25 11:55 IMPRESSION: Unremarkable retroperitoneal ultrasound. No evidence of hydronephrosis. Electronically signed by: Ellis Ozuna MD 05/10/2025 12:12 PM EDT RP Discharge Plan Discharge Anticipated Discharge Date/Time: 05/13/25 12:24 Patient Disposition: Home, Self-Care Discharge Diagnosis: colitis possible diabetic gastroparesis acute/chronic kidney injury Referrals: Peter Alexander MD [Physician, Nephrology] - 1 Month Audelia Ceja MD [Physician, Gastroenterology] - 1 Month Shelbi Perez MD [Primary Care Provider, Internal Medicine] - 1 Week Discharge Medications: New metoclopramide HCl 5 mg Tablet 5 mg PO TIDAC Qty: 90 0RF amoxicillin-pot clavulanate 875-125 mg Tablet 1 tab PO Q12H Qty: 6 0RF Continued (DME) lancets 28 gauge misc See Rx Instructions topical TID Qty: 100 3RF Rx Instructions: once a day (DME) diaper,brief,adult,disposable Misc See Rx Instructions .Route Qty: 64 5RF Rx Instructions: Use for stress incontinence (DME) blood-glucose meter [OneTouch Ultra2 Meter] Misc See Rx Instructions .Route Qty: 1 0RF Rx Instructions: Use to check blood sugar twice daily and when having symptoms of hypo/hyperglycemia (DME) walker Misc See Rx Instructions .Route Qty: 1 0RF Rx Instructions: Wheeled walker with seat and brakes (DME) Shower Chair Misc See Rx Instructions .Route Qty: 1 0RF Rx Instructions: Shower chair with back and arm rests (DME) FreeStyle Lite Strips Strip See Rx Instructions .Route Qty: 100 6RF Rx Instructions: Use to check blood sugar 3 times a day as needed (DME) lancets 30 gauge misc See Rx Instructions .Route Qty: 100 2RF Rx Instructions: Use to check blood sugar twice daily and when having symptoms of hypo/hyperglycemia montelukast 10 mg tablet 10 mg PO DAILY Qty: 90 5RF (DME) diaper,brief,adult,disposable Misc See Rx Instructions .Route Qty: 200 11RF Rx Instructions: Size large adult pull up briefs (DME) OneTouch Ultra Test Strip See Rx Instructions .Route Qty: 100 2RF Rx Instructions: Use to check blood sugar 3 times a day as needed atorvastatin 80 mg tablet 80 mg PO DAILY 90 Days Qty: 90 2RF (DME) pen needle, diabetic 31 gauge x 3/16 needle See Rx Instructions subcut TID Qty: 400 1RF Rx Instructions: check blood sugar four times per a day (DME) pen needle, diabetic 31 gauge x 3/16 needle See Rx Instructions .Route Qty: 100 2RF Rx Instructions: Use to administer insulin twice daily (DME) blood pressure test kit-large Kit See Rx Instructions .Route Qty: 1 0RF Rx Instructions: Check blood pressure as directed albuterol sulfate 2.5 mg /3 mL (0.083 %) solution for nebulization 2.5 mg inhalation Q4-6H PRN (Reason: for wheezing) Qty: 75 0RF ropinirole 2 mg tablet 2 mg PO BID Qty: 30 5RF (DME) nebulizers [AeroEclipse II Nebulizer] Misc See Rx Instructions .ROUTE .MEDSUPPLY Qty: 1 0RF Rx Instructions: As directed hydroxyzine pamoate 25 mg capsule 25 mg PO DAILY aspirin 81 mg Tablet,Chewable 81 mg PO DAILY pramipexole 0.5 mg tablet 0.5 mg PO TID cholecalciferol (vitamin D3) 125 mcg (5,000 unit) capsule 125 mcg PO DAILY gabapentin 300 mg capsule 300 mg PO BID citalopram 20 mg tablet 20 mg PO DAILY albuterol sulfate 90 mcg/actuation HFA aerosol inhaler 2 puff inhalation Q4H PRN (Reason: Shortness Of Breath Or Wheezing) insulin aspart U-100 [Novolog FlexPen U-100 Insulin] 100 unit/mL (3 mL) insulin pen See Protocol subcut BIDAC Protocol: Insulin Correction Scale Less than or equal to 110 ---- Give (units): 0 111 to 150 Give (units): 0 151 to 200 Give (units): 2 201 to 250 Give (units): 6 251 to 300 Give (units): 8 301 to 350 Give (units): 10 Greater than 350 Give (units): 12 Call MD if Blood Glucose > : 350 Rx Instructions: Up to 10 units before each meal according to sliding scale Trulicity 1.5 mg/0.5 mL pen injector 1.5 mg subcut TH Women's Multivitamin 18 mg-400 mcg- 500 mg-50 mcg Tablet 1 tab PO DAILY trazodone 150 mg tablet 150 mg PO BEDTIME PRN (Reason: insomnia) bupropion HCl 150 mg tablet extended release 24 hr 150 mg PO DAILY (DME) oxygen-air delivery systems Device See Rx Instructions .ROUTE .MEDSUPPLY Qty: 1 Rx Instructions: As directed lisinopril 20 mg tablet 20 mg PO DAILY 90 Days Qty: 90 3RF insulin glargine [Lantus U-100 Insulin] 100 unit/mL solution 20 unit subcut DAILY 90 Days Qty: 18 0RF Discharge Orders: Discharge Order (Routine); Ordered 05/13/25 Ordered By: Jason Boyle Diet: Diabetic diet Activity on Discharge: As tolerated Stand Alone Forms: Patient Portal Discharge page Print Language: Arabic Care Plan Goals: abdominal health Health Concerns: colitis possible diabetic gastroparesis acute/chronic kidney injury Plan of Treatment: amoxicillin-clavulanate twice daily for 3 days; follow up with Dr Ceja from [facility] Gastroenterology in 1 month to plan colonoscopy continue metoclopramide 5 mg 3x a day with meals to see if this helps with nausea/vomiting follow up with [facility] Nephrology in 1 month Please follow up with your primary care doctor within 1 week. Return to the hospital if you experience recurrent or worsening symptoms. Assessment: See Discharge Summary.
--- NOTE | 2025-05-13 13:05 | MHC.CM.PN ---
PT CLEARED TO DC HOME TODAY WITH [employer] [facility] [employer] BLS TRANSPORT BOOKED WITH [facility]
[2025-05-13 14:09] VITALS: BP 138/65; PULSE 91; RESP 16; TEMP 36.3; O2SAT 97
== END 2025-05-13 13:50 | disposition home or self-care (01) | DRG 385 ==
LOC: HO.ED 11:59 → HO.EDOVER 14:58 → HO.S3 17:35
PROVIDERS: Physician Assistant; Student in an Organized Health Care Education/Training Program; Admitting Provider Nurse Practitioner Acute Care; Emergency Provider Emergency Medicine; PCP Internal Medicine; Visit Provider Family Medicine
DX: K51.511 Left sided colitis with rectal bleeding (principal); K57.33 Diverticulitis of large intestine without perforation or abscess with bleeding; Z68.41 Body mass index [BMI] 40.0-44.9, adult; J96.10 Chronic respiratory failure, unspecified whether with hypoxia or hypercapnia; I12.9 Hypertensive chronic kidney disease with stage 1 through stage 4 chronic kidney disease, or unspecified chronic kidney disease; N18.30 Chronic kidney disease, stage 3 unspecified; E11.22 Type 2 diabetes mellitus with diabetic chronic kidney disease; E66.01 Morbid (severe) obesity due to excess calories; G47.33 Obstructive sleep apnea (adult) (pediatric); I25.10 Atherosclerotic heart disease of native coronary artery without angina pectoris; M54.59 Other low back pain; G25.81 Restless legs syndrome; E11.43 Type 2 diabetes mellitus with diabetic autonomic (poly)neuropathy; K31.84 Gastroparesis; D63.1 Anemia in chronic kidney disease; Z99.81 Dependence on supplemental oxygen; Z79.4 Long term (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 insulin; Z79.82 Long term (current) use of aspirin; Z79.85 Long-term (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 injectable non-insulin antidiabetic drugs; Z79.899 Other long term (current) drug therapy
CPT/HCPCS: 36415; 74018; 74176; 76775; 80048; 80053; 80076; 81001; 82272; 82570; 82947; 83605; 83690; 83735; 84300; 85025; 85027; 85610; 86850; 86900; 86901; 87040; 93005; 97110; 97162; 97166; 97530; 99285; J1644; J2270; J2405; J2470; J2543; J2765

== ENCOUNTER → 2025-05-08 07:56 | Outpatient (BNV) | payer OTHER, SELFPAY | PROVIDERS: Admitting Provider Nurse Practitioner Acute Care; Emergency Provider Emergency Medicine; PCP Internal Medicine; Visit Provider Internal Medicine | DX: I49.1 Atrial premature depolarization (principal) | CPT/HCPCS: 93010 ==

== ENCOUNTER → 2025-05-08 07:56 | Outpatient (BNV) | payer OTHER, SELFPAY | PROVIDERS: Emergency Provider Emergency Medicine; PCP Internal Medicine; Visit Provider Radiology Diagnostic Radiology | DX: K62.5 Hemorrhage of anus and rectum (principal); R10.9 Unspecified abdominal pain | CPT/HCPCS: 74176 ==

== ENCOUNTER 2025-05-08 14:47 | Outpatient (BNV) | payer OTHER, SELFPAY | END 2025-05-10 11:55 | PROVIDERS: Admitting Provider Nurse Practitioner Acute Care; Emergency Provider Emergency Medicine; PCP Internal Medicine; Visit Provider Radiology Diagnostic Radiology | DX: N17.9 Acute kidney failure, unspecified (principal); Z03.89 Encounter for observation for other suspected diseases and conditions ruled out | CPT/HCPCS: 74018; 76775 ==

== ENCOUNTER → 2025-05-08 14:47 | Outpatient (BNV) | payer OTHER, SELFPAY | PROVIDERS: Admitting Provider Nurse Practitioner Acute Care; Emergency Provider Emergency Medicine; PCP Internal Medicine | DX: K52.9 Noninfective gastroenteritis and colitis, unspecified (principal) | CPT/HCPCS: 99222; 99232 ==

== ENCOUNTER → 2025-05-08 14:47 | Outpatient (BNV) | payer OTHER, SELFPAY | PROVIDERS: Admitting Provider Nurse Practitioner Acute Care; Emergency Provider Emergency Medicine; PCP Internal Medicine; Visit Provider Internal Medicine Gastroenterology | DX: K52.9 Noninfective gastroenteritis and colitis, unspecified (principal) | CPT/HCPCS: 99223 ==

== ENCOUNTER → 2025-05-08 14:47 | Outpatient (BNV) | payer OTHER, SELFPAY | PROVIDERS: Admitting Provider Nurse Practitioner Acute Care; Emergency Provider Emergency Medicine; PCP Internal Medicine; Visit Provider Nurse Practitioner Acute Care | DX: E11.9 Type 2 diabetes mellitus without complications (principal); N17.9 Acute kidney failure, unspecified; N18.9 Chronic kidney disease, unspecified; J43.1 Panlobular emphysema; K52.9 Noninfective gastroenteritis and colitis, unspecified | CPT/HCPCS: 99223; 99232; 99233 ==

== ENCOUNTER → 2025-05-08 14:47 | Outpatient (BNV) | payer OTHER, SELFPAY | PROVIDERS: Admitting Provider Nurse Practitioner Acute Care; Emergency Provider Emergency Medicine; PCP Internal Medicine; Visit Provider Internal Medicine Hypertension Specialist | DX: N17.9 Acute kidney failure, unspecified (principal); N18.9 Chronic kidney disease, unspecified | CPT/HCPCS: 99232 ==

== ENCOUNTER 2025-05-24 11:27 | Outpatient (AMB) | payer OTHER, SELFPAY ==
--- OUTSIDE RECORDS SUMMARY | 2024-05-06 04:00 | XMS_ITS ---
Author Organization [facility] Address [address] [place] [address] Care Team Providers Care Cashier Receptionist Name Role Phone Chris BROWNE, Shelbi Primary Care Provider UnavailNik Haynes Unavailable [phone] Encounters Encounter Location Date Provider Diagnosis [address] [address] 05/06/2024 Nik Hernandez Plan Of Treatment Next Appt Details Provider Name:Nik Hernandez , 08/01/2025 09:00:00 AM, [address] [place] [address], [phone], Progress Notes * AYUSHMaryeDOB:1950 ( 75 yo F)Acc No.[id number]:05/06/2024 Progress Note Patient: Mine MIMS Provider: Nicolás Hernandez DPM :1950 A ge:74 Y S ex:Female Date:05/06/2024 Address:[address] [place] [address] Pcp:Shelbi Perez MD Subjective: * Chief Complaints: [...] Date: 1 Generated for Judah locke/Wendy/Kyle on: 07/24/2024 02:17 PM EST
--- OUTSIDE RECORDS SUMMARY | 2025-02-21 04:30 | XMS_ITS ---
Author Organization [facility] Address [address] [place] [address] Care Team Providers Care Drapery And Upholstery Estimator Name Role Phone Chris BROWNE, Shelbi Primary Care Provider Unavailabl Nik Shankar Unavailable [phone] Lopez Encounters Encounter Location Date Provider Diagnosis [address] [address] 02/21/2025 Nik Hernandez Plan Of Treatment Next Appt Details Provider Name:Nik Hernandez , 08/01/2025 09:00:00 AM, [address] [place] [address], [phone], Progress Notes * Mary PEACOCKeDOB:1950 ( 75 yo F)Acc No.[id number]:02/21/2025 Progress Note Patient: Matthew MIMSlene Provider: Nicolás Hernandez DPM :1950 A ge:75 Y S ex:Female Date:02/21/2025 Address:[address] [place] [address] Pcp:Shelbi Perez MD Subjective: * Chief Complaints: * [address] Lopez[address] * Medical History: Objective: * Vitals: Assessment: Plan: * Treatment: * Images: * The named appointment provid er may or may not be the originator of this progress note, and it is not deemed complete until electronically signed by the appointment provider. Sign off status: Pending * Provider: Nicolás Hernandez DPM Date: 0 02/21/2025 Generated for Judah Owens on: 07/24/2024 02:16 PM EST
--- OUTSIDE RECORDS SUMMARY | 2025-04-11 07:00 | XMS_ITS ---
Author Organization [facility] lianc Address [address] [place] [address] Care Team Providers Care Varnishing Unit Operator Name Role Phone Shelbi Perez Primary Care Provider Rajwinder Sevilla Unavailable [phone] REASON FOR VISIT Chronic Care F/U Encounters Encounter Location Date Provider Diagnosis [address] [address] 04/11/2025 Rajwinder Johns Plan Of Treatment No Information Progress Notes * Mine PEACOCK RDOB:1950 (75 yo F)Acc No.[id number]:04/11/2025 BLOCKED FROM THE PATIENT Patient: Rob TRINIDADMine External Provider: [place] Diana :1950 A ge:75 Y S ex:Female Date:04/11/2025 Address:[address] [place] [address] [address], [place], [id number] Pcp:Shelbi ePrez Subjective: * Chief Complaints: * 1 . [...] [place] Diana Date: 0 04/11/2025 Generated for Karli ng/Faprestong/eTransmitting on: 1 07/24/2024 02:17 PM EST
--- OUTSIDE RECORDS SUMMARY | 2025-05-22 06:30 | XMS_ITS ---
Author Organization [facility] Address [address] [place] [address] Care Team Providers Care Blueprint Developer Name Role Phone ChrisShelbi Primary Care Provider Alessia Espinosa Unavailable [phone] REASON FOR VISIT palliative follow-up Medications Medication SIG (Take, Route, Frequency, Duration) Notes Start Date End Date Status Atorvastatin Calcium 80 MG 1 tablet Orally Once a day Active Multivitamin - 1 tablet Orally Once a day Active rOPINIRole HCl 2 MG 1 tablet Orally Twice a day Not-Taking amLODIPine Besylate 5 MG 1 tablet Orally Once a day Member reports not taking. Not-Taking Ipratropium-Albuterol 0.5-2.5 (3) MG/3ML 3 mL as needed Inhalation every 6 hrs Member reports not taking. Not-Taking Tylenol Extra Strength 500 MG 1 tablet as needed Orally every 6 hrs OTC Active hydrOXYzine HCl 25 MG as directed Orally twice a day PRN anxiety Active [facility] Fluticasone Propionate 50 MCG/ACT 1 spray in each nostril Nasally Twice a day; Duration: 30 days Active Gabapentin 300 MG 1 capsule Orally twice a day Active buPROPion HCl ER (SR) 150 MG 1 tablet in the morning Orally Once a day Active Insulin Aspart FlexPen 100 UNIT/ML as directed Subcutaneous Sliding scale TID Active Lantus SoloStar 100 UNIT/ML 20 units Subcutaneous daily; Duration: 30 days Active Dulaglutide 3 MG/0.5ML as directed Subcutaneous weekly Active Oxygen Concentrator 2-3 liters 2lPM as needed to maintain 2 sat 88-92% continuous 2L PRN Active traZODone HCl 150 MG 1 tablet at bedtime Orally Once a day Active Aspirin 81 MG 1 tablet Orally Once a day; Duration: 90 days Active Vitamin D3 125 MCG (5000 UT) 1 capsule Orally Once a day; Duration: 90 days Active Citalopram Hydrobromide 10 MG 1 tablet Orally Once a day Active Albuterol Sulfate HFA 108 (90 Base) MCG/ACT 1 puff as needed Inhalation every 4 hrs PRN Active Montelukast Sodium 10 MG 1 tablet Orally Once a day Active Lisinopril 20 MG 1 tablet Orally Once a day Active Albuterol Sulfate (2.5 MG/3ML) 0.083% 3 mL as needed Inhalation every 6 hrs PRN only Active Metoclopramide HCl 5 MG 1 tablet before meals Orally 3 times a day Active Cyclobenzaprine HCl 10 MG 1 tablet at bedtime as needed Orally Once a day Member reports not taking. Not-Taking Pramipexole Dihydrochloride 0.5 MG 1 tablet Orally 3 times a day Active Budesonide 2 MG/10ML 10 mL Orally Twice a day Member reports not taking. Not-Taking Loratadine 10 MG 1 tablet Orally Once a day; Duration: 30 days Member reports not taking. Not-Taking Vital Signs Temperature 97.3 degrees Fahrenheit 05/22/20 25 Heart Rate 68 /min 05/22/2025 Blood pressure systolic 124 mm Hg 05/22/20 25 Blood pressure diastolic 62 mm Hg 025 Respiratory Rate 18 /min 05/22/2025 Oximetry 98 % 05/22/2025 Height 60 in 05/22/2025 Height-cm 152.4 cm 05/22/2025 Encounters Encounter Location Date Provider Diagnosis [address] [address] 05/22/2025 Alessia Garza COPD (chronic obstructive pulmonary disease) J44.9 and Palliative care by specialist Z51.5 Assessments Encounter Date Diagnosis (ICD Code) Assessment Notes Treatment Notes Treatment Clinical Notes Section Notes 05/22/2025 COPD (chronic obstructive pulmonary disease) (ICD-10 - J44.9) - Worsening symptoms reviewed as well as when to contact palliative care or PCP 05/22/2025 Palliative care by specialist (ICD-10 - Z51.5) -Discussed disease trajectory and associated symptoms -Encouraged to maintain follow-up appts as scheduled given recent hospitalization -Palliative care contact information reviewed and provided. -InstED services/contac t information reviewed and provided. -Collaborated with PCP and [facility] primary care provider Plan Of Treatment Medication Medication Name Sig Start Date Stop Date Notes Oxygen Concentrator 2-3 liters 2lPM as needed to maintain 2 sat 88-92% continuous 2L PRN Albuterol Sulfate HFA 108 (9 0 Base) MCG/ACT 1 puff as needed Inhalation every 4 hrs PRN Montelukast Sodium 10 MG 1 tablet Orally Once a day Albuterol Sulfate (2.5 MG/3ML) 0.083% 3 mL as needed Inhalation every 6 hrs PRN only Next Appt Details Follow Up: 4 Weeks, Reason: palliative follow-up Progress Notes * Mine PEACOCK RDOB:1950 (75 yo F)Acc No.[id number]:05/22/2025 Patient: Mine MIMS External Provider: Nicolás Garza NP :1950 A ge:75 Y S ex:Female Date:05/22/2025 Address:[address] [place] [address] [address], [place] Pcp:Shelbi Perez Subjective: * Chief Complaints: * 1 . Palliative follow-up. * HPI: H istory of Present Illness: 75 y/o female admitted to palliative care on 04/25/25 with palliative diagnosis of COPD. Comorbidities include: anxiety, depression, CKD st.4, chronic respiratory failure with hypoxia, type 2 diabetes, morbid obesity, polymyalgia rheumatica, right ankle fracture s/p closed reduction, and Tri-malleolar fracture s/p fall with ORIF in 05/05. Recent hospitalizations: [facility] [place] 05/08-05/13/25: colitis/AGUSTIN/CKD st3/diabetic gastroparesis Has completed antibiotic therapy since return home from hospitalization. Had diarrhea while on antibiotics which has resolved. Continues to have mild lower abdominal aches. Denies nausea, vomiting, constipation. Awaiting appointment for colonoscopy. Short of breath with activity at baseline. Denies cough, fever, chills, wheezing, or sputum production. 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 G eneral Visit Information: Encounter Information: O ther(s) present at the visit: Y es Ed- WINE MANAGER/son, daughter in law, Donovan- ex- Shira suazo of Visit (total time spent): 6 0 minutes. Total visit time includes direct patient care (fnig-[id number] or virtual), chart review, documentation and care coordination and excludes any time billed separately for advance care planning (ACP) P alliative Care: Palliative Symptom Assessment O jayla the past 3-7 days, have any of the following been an ongoing issue? P ain P AIN: Is the pain related to an existing serious illness? N o P AIN: Location 1 P ain Location 1 abdomen/ lower back P alliation - What makes the pain better or worse? t ylenol Q uality - How does the pain feel? S ee HPI R adiation - Does the pain feel like it moves anywhere? n o S everity - How severe would you describe the pain as being? 1 -3 Slightly (follow-up recommended at next encounter) T iming - What time of day do you experience the pain? w hile sitting H ow long/often do you experience the pain??Occasionally U nderstanding - What do you know about the pain and its cause(s)? How does the pain affect your life? s ee HPI P AIN: Are you getting the kind of help you want for your pain? Y es C OVID-19 Screening (Questions Revised 11/14/2019): COVID-19 Screening M ember or any household member has any new or worsening breathing problems: N o M ember or any household member has other general or non-respiratory symptoms: N o M ember or any household member has been in close contact with anyone diagnosed or suspected case of COVID: N o M edication Review: Medication Review W hat service was performed? P ost-discharge medication review V isit/Encounter Type I n person W as the medication list in eCW updated? Y es- new or changed medications added W ere medication discrepancies/issues identified? N o W hat interventions have been performed? N o discrepancies found * ROS: G eneral ROS: CONSTITUTIONAL D enies, fever, chills, sweats, malaise, change in appetite, headache, lightheadedness. C ARDIOVASCULAR D enies, chest pain, p alpitations, fluid accumulation in the legs, dizziness, weakness. R ESPIRATORY S ee HPI. G ASTROINTESTINAL S ee HPI. M OBILITY , Denies, falls. S KIN D enies, skin breakdown, rash, itching. N EUROLOGIC D enies, syncope, tremor, prolonged h eadaches. E NDOCRINE D enies symptoms of hypo-/hyperglycemia. * Medical History: * Social History: A dvance Care Planning : G oals of Care Discussion * *Goals of Care: Prognostic Awareness/Understanding F luctuating G oals of Care: Fears/Worries W orries about dying and leaving children and grandchildren behind G oals of Care: Sources of Strength f amily * *Goals of Care: Goals L girma Prolongation, Improve QOL. Increase enjoyment/eating/driving/family/etc. G oals of Care: If your health condition worsens, what matters most? I don't want to go to a penitentiary * *Goals of Care: Recommendations C ontinue current treatments HCP Discussion (Mass Only) I s there a HCP (Mass Only) in eCW? Y es W hen was the HCP (Mass Only) completed? 0 09/03/2023 Lewis Pappas I s the HCP (Mass Only) still accurate? Y es MOLST Form Discussion (Mass Only) I s there a Mass MOLST form in eCW? N o Copy to be scanned into eCW G OC reviewed 05/22/2025- Alessia Garza NP Lives at [facility] in [place] with her significant other, Donovan. Son and daughter live locally and are active in her care. Son, Westley is WINE MANAGER. * Medications: T aking Metoclopramide HCl 5 MG Tablet 1 tablet before meals Orally 3 times a day , Taking Albuterol Sulfate (2.5 MG/3ML) 0.083% Nebulization Solution 3 mL as needed Inhalation every 6 hrs , Notes to Pharmacist: PRN only, Taking Albuterol Sulfate HFA 108 (90 Base) MCG/ACT Aerosol Solution 1 puff as needed Inhalation every 4 hrs , Notes to Pharmacist: PRN, Taking Montelukast Sodium 10 MG Tablet 1 tablet Orally Once a day , Taking Oxygen Concentrator 2-3 liters inhaled oxygen 2lPM as needed to maintain 2 sat 88-92% continuous , Notes to Pharmacist: 2L PRN, Taking Pramipexole Dihydrochloride 0.5 MG Tablet 1 tablet Orally 3 times a day , Taking Lisinopril 20 MG Tablet 1 tablet Orally Once a day , Taking Aspirin 81 MG Tablet Delayed Release 1 tablet Orally Once a day , Taking Vitamin D3 125 MCG (5000 UT) Capsule 1 capsule Orally Once a day , Taking Citalopram Hydrobromide 10 MG Tablet 1 tablet Orally Once a day , Taking Insulin Aspart FlexPen 100 UNIT/ML Solution Pen-injector as directed Subcutaneous , Notes to Pharmacist: Sliding scale TID, Taking Lantus SoloStar 100 UNIT/ML Solution Pen-injector 20 units Subcutaneous daily , Taking Dulaglutide 3 MG/0.5ML Solution Pen-injector as directed Subcutaneous weekly , Taking traZODone HCl 150 MG Tablet 1 tablet at bedtime Orally Once a day , Taking [facility]S Fluticasone Propionate 50 MCG/ACT Suspension 1 spray in each nostril Nasally Twice a day , Taking Gabapentin 300 MG Capsule 1 capsule Orally twice a day , Taking buPROPion HCl ER (SR) 150 MG Tablet Extended Release 12 Hour 1 tablet in the morning Orally Once a day , Taking Tylenol Extra Strength 500 MG Tablet 1 tablet as needed Orally every 6 hrs , Notes to Pharmacist: OTC, Taking hydrOXYzine HCl 25 MG Tablet as directed Orally twice a day , Notes to Pharmacist: PRN anxiety, Taking Atorvastatin Calcium 80 MG Tablet 1 tablet Orally Once a day , Taking Multivitamin - Tablet 1 tablet Orally Once a day , Not-Taking rOPINIRole HCl 2 MG Tablet 1 tablet Orally Twice a day , Not-Taking amLODIPine Besylate 5 MG Tablet 1 tablet Orally Once a day , Notes to Pharmacist: Member reports not taking., Not-Taking Ipratropium-Albuterol 0.5-2.5 (3) MG/3ML Solution 3 mL as needed Inhalation every 6 hrs , Notes to Pharmacist: Member reports not taking., Not-Taking Budesonide 2 MG/10ML Suspension 10 mL Orally Twice a day , Notes to Pharmacist: Member reports not taking., Not-Taking Loratadine 10 MG Tablet 1 tablet Orally Once a day , Notes to Pharmacist: Member reports not taking., Not-Taking Cyclobenzaprine HCl 10 MG Tablet 1 tablet at bedtime as needed Orally Once a day , Notes to Pharmacist: Member reports not taking., Medication List reviewed and reconciled with the patient Objective: * Vitals: I nhaled Oxygen Flow Rate: 2L, Temp:97.3F, HR:68/min, BP:124/62mm Hg, RR:18/min, Oxygen sat %:98%, Pain scale:30-10, Ht: 60 in, Ht-cm: 152.4 cm. * Examination: G eneral Examination-New: GENERAL APPEARANCE: p elvin elderly female. well nourished, well developed, in no acute distress. ORAL CAVITY: O ral mucosa pink and moist. HEART: r egular rate and rhythm, no murmurs, rubs, gallops no peripheral edema peripheral pulses 3+ . LUNGS: L ungs with forced expiratory wheezes audible in upper lobes, respirations are non-labored. ABDOMEN: s oft, non tender, non distended, bowel sounds present. NEUROLOGIC: o riented to person, place, time, situation, normal speech, cooperative with exam. PSYCH: a lert, oriented good eye contact cooperative with exam judgement and insight good . P alliative Care: PPS (Palliative Performance Scale) % 5 0 - Mainly sits / lies, can't do any work, extensive disease, considerable assistance needed, normal or reduced intake, full consciousness or confusion Assessment: * Assessment: 1. C OPD (chronic obstructive pulmonary disease) - J44.9 (Primary) 2 . P alliative care by specialist - Z51.5 Plan: * Treatment: 2. P alliative care by specialist Clinical Notes:-Discussed disease trajectory and associated symptoms -Encouraged to maintain follow-up appts as scheduled given recent hospitalization -Palliative care contact information reviewedand provided. -InstED services/contact information reviewed and provided. -Collaborated with PCP and [facility] primary care provider * Follow Up: 4 Weeks (Reason: palliative follow-up) * * The named appointment provid er may or may not be the originator of this progress note, and it is not deemed complete until electronically signed by the appointment provider. Sign off status: Pending * Provider: Nicolás Garza NP Date: 07/22/2024 Generated for Judah locke/Wendy/Kyle on: 07/24/2024 02:16 PM EST History and Physical Notes * HPI (History of Present Illness) Category Sub-Category Detail Notes Category Not es History of Present Illness 75 y/o female admitted to palliative care on 04/25/25 with palliative diagnosis of COPD. Comorbidities include: anxiety, depression, CKD st.4, chronic respiratory failure with hypoxia, type 2 diabetes, morbid obesity, polymyalgia rheumatica, right ankle fracture s/p closed reduction, and Tri-malleolar fracture s/p fall with ORIF in 05/05. Recent hospitalizations: [facility] [place] 05/08-05/13/25: colitis/AGUSTIN/CKD st3/diabetic gastroparesis Has completed antibiotic therapy since return home from hospitalization. Had diarrhea while on antibiotics which has resolved. Continues to have mild lower abdominal aches. Denies nausea, vomiting, constipation. Awaiting appointment for colonoscopy. Short of breath with activity at baseline. Denies cough, fever, chills, wheezing, or sputum production. 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 COVID-19 Screening (Questions Revised 11/14/2019) COVID-19 Screening Member or any household member has any new or worsening breathing problems:: No Member or any household memb er has other general or non-respiratory symptoms:: No Member or any household memb er has been in close contact with anyone diagnosed or suspected case of COVID:: No General Visit Information Encounter Information: Other(s) present at the visit:: Yes Ed- WINE MANAGER/son, daughter in law, Donovan- ex- Length of Visit (total time spent):: 60 minutes. Total visit time includes direct patient care (syfl-mx-egth or virtual), chart review, documentation and care coordination and excludes any time billed separately for advance care planning (ACP) Palliative Care Palliative Symptom Assessment Ov er the past 3-7 days, have any of the following been an ongoing issue?: Pain PAIN: Is the pain related to an existing serious illness?: No PAIN: Location 1: Pain Location 1 abdomen/ lower back Palliation - What makes the pain better or worse?: tylenol Quality - How does the pain feel?: See HPI Radiation - Does the pain feel like it moves anywhere?: no Severity - How severe would you describe the pain as being?: 1-3 Slightly (follow-up recommended at next encounter) Timing - What time of day do you experience the pain?: while sitting How long/often do you experience the pain?: Occasionally Understanding - What do you know about the pain and its cause(s)? How does the pain affect your life?: see HPI PAIN: Are you getting the kind of help you want for your pain?: Yes Medication Review Medication Review What service was performed?: Post-discharge medication review Visit/Encounter Type: In person Was the medication list in eCW updated?: Yes- new or changed medications added Were medication discrepancies/issues wojciech ntified?: No What interventions have been performed?: No discrepancies found Examination Category Sub-Category Detail Notes Category Not es Palliative Care PPS (Palliative Performance Scale) %: 50 - Mainly sits / lies, can't do any work, extensive disease, considerable assistance needed, normal or reduced intake, full consciousness or confusion General Examination-New GENERAL APPEARANCE: pleasant elderly female. well nourished, well developed, in no acute distress ORAL CAVITY: Oral mucosa pink and moist HEART: regular rate and rhy thm, no murmurs, rubs, gallops no peripheral edema peripheral pulses 3+ LUNGS: Lungs with forced ex piratory wheezes audible in upper lobes, respirations are non-labored ABDOMEN: soft, non tender, no n distended, bowel sounds present NEUROLOGIC: oriented to person, place, time, situation, normal speech, cooperative with exam PSYCH: alert, oriented good eye contact cooperative with exam judgement and insight good
--- NOTE | 2025-05-24 11:32 | A.OFFPC_ITS ---
Vital Signs 05/24/25 11:36 Height 5 ft Weight 210 lb BMI 41.0 BP 130/70 Blood Pressure Location Lt brachial Position Sitting Pulse 86 Pulse Source Pulse Oximeter Pulse Oximetry (%) 93 Intake Visit Reasons: TCM Medical Stenographer Required: No Accompanied by: Self / Same As Patient Allergies adhesive tape (ADHESIVE TAPE) Allergy (Intermediate, Verified 05/24/25 11:33) RASH environmental allergies Allergy (Mild, Verified 05/24/25 11:33) URI trimethobenzamide (From TIGAN) Allergy (Mild, Verified 05/24/25 11:33) NAUSEA NSAIDS (Non-Steroidal Anti-Inflamma Adverse Reaction (Mild, Verified 05/24/25 11:33) Nephropathy Medication List - Last Reconciled 05/24/25 by Shelbi Perez MD albuterol sulfate 90 mcg/actuation 2 puffs inhalation Q4H PRN albuterol sulfate 2.5 mg (3 mL) inhalation Q4-6H PRN aspirin 81 mg PO DAILY atorvastatin 80 mg PO DAILY 90 days blood pressure test kit-large Check blood pressure as directed NS blood sugar diagnostic (FreeStyle Lite Strips) Use to check blood sugar 3 times a day as needed blood sugar diagnostic (OneTouch Ultra Test strips) Use to check blood sugar 3 times a day as needed blood-glucose meter (OneTouch Ultra2 Meter) Use to check blood sugar twice daily and when having symptoms of hypo/hyperglycemia bupropion HCl XL 150 mg PO DAILY cholecalciferol (vitamin D3) 125 mcg PO DAILY citalopram 20 mg PO DAILY diaper,brief,adult,disposable Use for stress incontinence diaper,brief,adult,disposable Size large adult pull up briefs dulaglutide (Trulicity) 1.5 mg subcut TH gabapentin 300 mg PO BID hydroxyzine pamoate 25 mg PO DAILY insulin aspart U-100 (Novolog FlexPen U-100 Insulin aspart) See Protocol sliding scale doses subcut BIDAC insulin glargine (Lantus U-100 Insulin) 20 units (0.2 mL) subcut DAILY 90 days lancets once a day lancets Use to check blood sugar twice daily and when having symptoms of hypo/hyperglycemia lisinopril 20 mg PO DAILY 90 days metoclopramide HCl 5 mg PO TIDAC montelukast 10 mg PO DAILY np-ek-[id number]-FA-Ca carb-vit K 18 mg-400 mcg- 500 mg-50 mcg (Women's Multivitamin) 1 tab PO DAILY nebulizers (AeroEclipse II Nebulizer) As directed oxygen-air delivery systems As directed pen needle, diabetic Use to administer insulin twice daily pen needle, diabetic check blood sugar four times per a day pramipexole 0.5 mg PO TID ropinirole 2 mg PO BID Shower Chair Shower chair with back and arm rests trazodone 150 mg PO BEDTIME PRN walker Wheeled walker with seat and brakes Tobacco use date assessed: 07/26/24 Dental Screening Dental Screen Date: 07/26/24 HPI TCM HPI Details Patient is a 75-year-old female came in today for hospital discharge follow-up Date of admission 05/08/2025 and date of discharge 05/13/2025 Patient has a history of COPD, diabetes, chronic kidney disease, obstructive sleep apnea, GERD, status post appendectomy cholecystectomy and partial colectomy presented to emergency room with a chief complaint of diffuse abdominal pain which started morning of arrival. Without any nausea vomiting or fever or chills Emergency room workup CT scan was concerning for colitis there was mild leukocytosis and creatinine noted to be 1.95 which is close to patient's baseline. Patient was treated with Zosyn morphine IV fluids and was admitted Patient is on home O2 She was seen by Gastroenterology and Nephrology Was treated with piperacillin tazobactam for left hemicolon colitis likely related to diverticulitis which was transition to Augmentin as her symptoms improved Patient will need a referral to have a follow up with the gastroenterology and to have colonoscopy Her creatinine improved with IV hydration and discharge creatinine was 1.42 She will see [facility] Nephrology in 1 month Patient was started on metoclopramide for possible gastroparesis related to diabetes She came in today for a follow-up appointment she is back to baseline Patient already have an appointment with Nephrology coming up 13 of June She need a referral to see gastroenterology which was placed for the patient On exam today patient is slightly tender left lower quadrant for that Augmentin for another 7 days sent She is having regular bowel movement and is eating at baseline without any discomfort To family members are here with the patient today 1 is her son and other is [id number], family concerns about memory loss. Cognitive Impairment: - The patient's son, who is also her hea lthcare proxy, is concerned about dementia due to the patient's repetitive speech and confusion regarding appointments. - The iehdmgwz-mv-qel has had to take ov er managing the patient's appointment scheduling. - The patient has seen a neurologist, Dr Ambreen Amos, in the past for restless legs and has an upcoming appointment with him in September, which she plans to attend with her son. - Polypharmacy is being considered as a potential cause of her cognitive fogginess and lack of concentration. As patient is taking multiple psychiatric medications through Psychiatry Diabetes Mellitus: - The patient has diabetes, and her bloo d sugar was 154 this morning. Medical History: - Diverticulitis - Type 2 Diabetes Mellitus - Hospitalization for bowel inflammation , discharged on May 15 - Restless legs syndrome - depression anxiety Problem List - Abdominal Pain left lower quadrant - Diverticulitis recent admission - Type 2 Diabetes Mellitus - Cognitive Impairment - Fatigue - History of Restless Legs Syndrome - Preventative care: Influenza vaccinati on through pharmacy Plan - An additional 7-day course of an unspe cified antibiotic will be prescribed for persistent abdominal pain secondary to recent inflammation. - A referral will be made for the sukhdev t to see a structures technician, Dr. Sheikh. - The patient was advised to get a high- dose flu shot for seniors, which is available at the pharmacy. - Regarding cognitive concerns, the roxy ent will proceed with her existing neurology appointment in September. - The patient will continue with [place] [facility] [place] appointments, including a kidney specialist on June 13 and a employee communications specialist on June 19. - The patient was counseled to avoid spi cy foods and chew her food thoroughly to manage her diverticulitis. Return in 4 months for physical exam appointment Review of Systems - General: No fever no chills - Neurological: No headaches no dizziness - Ear nose throat: No sore throat no hearing difficulty no ear pain - Cardiovascular: No syncope, no chest pain, no palpitations - Gastrointestinal: No nausea vomiting or diarrhea Physical Exam General: No acute distress, reports feeling tired and sometimes feels like fainting HEENT: No acute findings Neck: Supple Respiratory system: Wheezing mild Cardiovascular: S1-S2 regular in rate and rhythm Gastrointestinal: Mild discomfort left lower quadrant with palpation bowel sounds positive Extremities: No new findings MEDICAL OFFICE RECEPTIONIST: Alert awake oriented x3 motor intact patient was able to get on examination table Skin: Normal turgor [facility] Information Date of Discharge 05/13/25 Discharged From [facility] Interactive Contact Date (Reference documentation from this date) 05/15/25 HPI Comments History of Present Illness Details Date of admission/discharge: Please see HPI Facility: [facility] Discharge 2/current location: Home Diagnosis/procedure: Diverticulitis New/DC medications: Metoclopramide and Augmentin Changed medication/dozing: None Pending labs/tests: None Call to patient: Date/time TCM discharge loca tion/reason [facility]/Colitis TCM discharge date 05/13/25 TCM Interactive Co ntact Date 05/15/25 TCM medications re conciled Yes TCM discharge foll ow-up appointment scheduled No Patient received d ischarge instructi ons Yes All patient questi ons answered Yes Teach back Yes TCM details Pt. dong well, no fevers or bleeding , meds reconciled, discharge documen ts noted, message left for tcm apt. How are you feeling? Much better Any pain or discomfort? None Do you have any questions about your condition or discharge instructions? No Were you able to get her medications filled? Yes Do you have any questions about your medications? No Were you able to schedule your follow-up appointments? Referral for gastroenterology placed and Nephrology appointment is already set up If home health was ordered, have they contacted you? None ordered Any outpatient services, if so, are you scheduled? None ordered Are there any additional resources like transportation you might need during your recovery? No Educational needs/resources: None needed What support system do you have? 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) use of insulin Abdominal pain Exercise hypoxemia Depression, major, recurrent Dysuria Diabetes 1.5, managed as type 1 COPD (chronic obstructive pulmonary disease) Respiratory failure with hypoxia Urinary tract infection Hypoxemia Morbid obesity CKD (chronic kidney disease) Anemia Allergic rhinitis ALDO (obstructive sleep apnea) Obesity (BMI 30-39.9) Constipation due to opioid therapy Osteoarthritis of left knee Hx SBO Hyperlipidemia CPAP (continuous positive airway pressure) dependence History of adrenal adenoma Osteochondroma of left femur Arthritis Elevated cholesterol History of restless legs syndrome History of diverticulitis GERD (gastroesophageal reflux disease) Surgical History H/O excision of mass History of oophorectomy History of cholecystectomy History of appendectomy History of arthroscopy of left knee History of partial colectomy Hx of cataract extraction H/O exploratory laparotomy H/O colonoscopy History of surgery History of hysterectomy Family History Father HTN (hypertension) Diabetes mellitus Mother HTN (hypertension) Liver cancer Social History 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: Other 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 Other:: ex Housing: Apartment Are you a primary director of critical care to a significant other at home: No Do you presently have visiting nurse or other home services: No Alcohol intake: never Comment: PT SLEEPING Patient Tobacco Use Status: Never used Tobacco e-Cigarette/Vaping Use: Never Used Second Hand Smoke Exposure: No Advance Directives Date on File: 10/22/23 service: No Current occupational status: retired Cognitive needs: No Hearing needs: No Vision needs: No Female Reproductive History Menstrual Age of Menarche: 13 Questionnaire Thrive Questionnaire Date Thrive assessed: 05/24/25 I am a: Patient What is your living situation today?: I have a steady place to live Within the past 12 months, did the food you bought not last and you didn't have the money to get more?: I choose not to answer this question Within the past 12 months, did you worry whether your food would run out before you got money to buy more?: I choose not to answer this question Do you have trouble paying for medicines?: No Do you have trouble getting transportation to medical appointments?: No Do you have trouble paying your heating and electricity bill?: No Do you have trouble taking care of your child, family member or friend?: No Do you have trouble with day-to-day activities such as bathing, preparing meals, shopping, managing finances, etc.?: No Are you currently unemployed and looking for a job?: No Are you interested in more education?: No Please select the resources that you would like help with: None Currently or been in a relationship where the following occur: I choose not to answer THRIVE Score: 0 RACHNA-7 AMB Questionnaire RACHNA-7 Date RACHNA - 7 assessed: 01/27/25 Source: Developed by Drs. Ellis Child, Nimo B.Miguel Mcdaniels and colleagues, with an educational miki from [employer]. Physical exam (Primary Care) Vital Signs: Last Vital Signs Pulse 86 05/24/25 11:36 BP 130/70 05/24/25 11:36 Pulse Ox 93 05/24/25 11:36 BMI result Body Mass Index 41.0 Tobacco/Smoking Status: Tobacco use Status Tobacco use date assessed 07/26/24 05/24/25 11:32 Patient Tobacco Use Status Never used Tobacco 05/24/25 11:32 e-Cigarette/Vaping Use Never Used 05/24/25 11:32 Thrive Assessment: Date of Thrive Assessment Date Thrive assessed 05/24/25 05/24/25 11:33 Currently or been in a relationship where the following occur: I choose not to answer Coding Level of Care Code TCM Mod MDM <= 14 Days Diagnoses Hospital discharge follow-up Z09 Colitis K52.9 LLQ abdominal pain R10.32 Cognitive impairment R41.89 Anxiety, generalized F41.1 Type 1 diabetes mellitus with morbid obesity E10.69; E66.01 Obesity (BMI 30-39.9) E66.9 Stage 3a chronic kidney disease N18.31 Chronic kidney disease stage 3 subtype: stage 3a (GFR 45-59) Microalbuminuria R80.9 Assessment & Plan Assessment & Plan (1) Hospital discharge follow-up: Code(s): Z09 - Encounter for follow-up examination after completed treatment for conditions other than malignant neoplasm Category: Medical (2) Colitis: Code(s): K52.9 - Noninfective gastroenteritis and colitis, unspecified Category: Medical (3) LLQ abdominal pain: Code(s): R10.32 - Left lower quadrant pain Category: Medical (4) Cognitive impairment: Code(s): R41.89 - Other symptoms and signs involving cognitive functions and awareness Category: Medical (5) Anxiety, generalized: Code(s): F41.1 - Generalized anxiety disorder Category: Medical (6) Type 1 diabetes mellitus with morbid obesity: Code(s): E10.69 - Type 1 diabetes mellitus with other specified complication; E66.01 - Morbid (severe) obesity due to excess calories Category: Medical (7) Obesity (BMI 30-39.9): Comment: She is morbidly obese, current BMI 42.6, has lost 5 lb of weight recently and is happy about that. Code(s): E66.9 - Obesity, unspecified Category: Medical (8) Chronic kidney disease, stage III (moderate): Code(s): N18.30 - Chronic kidney disease, stage 3 unspecified Category: Medical Qualifiers: Chronic kidney disease stage 3 subtype: stage 3a (GFR 45-59) Qualified Code(s): N18.31 - Chronic kidney disease, stage 3a (9) Microalbuminuria: Code(s): R80.9 - Proteinuria, unspecified Category: Medical Plan Patient is a 75-year-old female came in today for hospital discharge follow-up Date of admission 05/08/2025 and date of discharge 05/13/2025 Patient has a history of COPD, diabetes, chronic kidney disease, obstructive sleep apnea, GERD, status post appendectomy cholecystectomy and partial colectomy presented to emergency room with a chief complaint of diffuse abdominal pain which started morning of arrival. Without any nausea vomiting or fever or chills Emergency room workup CT scan was concerning for colitis there was mild leukocytosis and creatinine noted to be 1.95 which is close to patient's baseline. Patient was treated with Zosyn morphine IV fluids and was admitted Patient is on home O2 She was seen by Gastroenterology and Nephrology Was treated with piperacillin tazobactam for left hemicolon colitis likely related to diverticulitis which was transition to Augmentin as her symptoms improved Patient will need a referral to have a follow up with the gastroenterology and to have colonoscopy Her creatinine improved with IV hydration and discharge creatinine was 1.42 She will see [facility] Nephrology in 1 month Patient was started on metoclopramide for possible gastroparesis related to js betes She came in today for a follow-up appointment she is back to baseline Patient already have an appointment with Nephrology coming up 13 of June She need a referral to see gastroenterology which was placed for the patient On exam today patient is slightly tender left lower quadrant for that Augmentin for another 7 days sent She is having regular bowel movement and is eating at baseline without any discomfort To family members are here with the patient today 1 is her son and other is [id number], family concerns about memory loss. Cognitive Impairment: - The patient's son, who is also her healthcare proxy, is concerned about dementia due to the patient's repetitive speech and confusion regarding appointments. - The uaghxuvu-gc-yat has had to take over managing the patient's appointment scheduling. - The patient has seen a neurologist, Dr. Amos, in the past for restless legs and has an upcoming appointment with him in September, which she plans to attend with her son. - Polypharmacy is being considered as a potential cause of her cognitive fogginess and lack of concentration. As patient is taking multiple psychiatric medications through Psychiatry Diabetes Mellitus: - The patient has diabetes, and her blood sugar was 154 this morning. Medical History: - Diverticulitis - Type 2 Diabetes Mellitus - Hospitalization for bowel inflammation, discharged on May 15 - Restless legs syndrome - depression anxiety Problem List - Abdominal Pain left lower quadrant - Diverticulitis recent admission - Type 2 Diabetes Mellitus - Cognitive Impairment - Fatigue - History of Restless Legs Syndrome - Preventative care: Influenza vaccination through pharmacy Plan - An additional 7-day course of an unspecified antibiotic will be prescribed for persistent abdominal pain secondary to recent inflammation. - A referral will be made for the patient to see a structures technician, Dr. Sheikh. - The patient was advised to get a high-dose flu shot for seniors, which is available at the pharmacy. - Regarding cognitive concerns, the patient will proceed with her existing neurology appointment in September. - The patient will continue with her upcoming specialist appointments, including a kidney specialist on June 13 and a employee communications specialist on June 19. - The patient was counseled to avoid spicy foods and chew her food thoroughly to manage her diverticulitis. Return in 4 months for physical exam appointment Orders: Referrals Gastroenterology Referral K52.9 - Noninfective gastroenteritis and colitis, unspecified, R10.32 - Left lower quadrant pain, Z09 - Encounter for follow-up examination after completed treatment for conditions other than malignant neoplasm Medications: New amoxicillin-pot clavulanate 875-125 mg 1 tab PO BID 14 tabs 0RF 7 days
[2025-05-24 11:36] VITALS: BP 130/70; PULSE 86; O2SAT 93; BMI 41.0
--- OUTSIDE RECORDS SUMMARY | 2025-05-24 14:16 | XMS_ITS | Data Portability ---
Author Organization [facility], [facility] Address [address] [place] [address] Care Team Providers Care Retail Department Manager Name Role Phone HIM CCA OTHER IVAN DUMONT Primary Care Provider [phone] Assessment Encounter Date Assessment Date Assessment LastModified by Organization Details LastModified Time 04/08/2025 04/08/2025 I have reviewed and agree with the Assessment and Plan as documented by the Gravity Prospecting Observer. I provided real-time medical direction via phone [...] should seek emergency care - precautions reviewed [id number] Not available 04/20/2025 21:02:20 Plan of Treatment Reminders Order Date Submit Date Provider Last Modified By Organization Details Last Modified Time Details Appointments None recorded. Lab rapid flu (A+B) 2024 [facility] [address] [place] [address], [address] [place] [address], [phone] 17:52:50 rapid SARS CoV 2 Ag, QL IA, respiratory specimen 2024 [facility] [address] [place] [address], [address] [place] [address], [phone] 17:52:50 rapid flu (A+B) 2024 025 [facility], [address] [place] [address], [phone] 5 16:20:43 rapid SARS CoV 2 Ag, QL IA, respiratory specimen 2024 025 [facility], [address] [place] [address], [id number] 5 16:21:13 urinalysis, dipstick [address], [address] 4 21:33:57 Referral None recorded. Procedures None recorded. Surgeries None recorded. Imaging None recorded. Medication Orders prednisone 20 mg tablet 2024 [facility]/Pharmacy #[id number], [address] [place], [address], 05:01:25 ipratropium 0.5 mg-albutero l 3 mg (2.5 mg base)/3 mL nebulizatio n soln 2024 025 [email or web address] 7 [id number] [address] [facility] [place], [address], 17:52:50 prednisone 20 mg tablet 2024 025 [facility], [address] [place] [address], [address], 05:01:25 prednisone 20 mg tablet 2024 025 [id number] [address] [facility] [place], [address], 05:01:25 prednisone 20 mg tablet 2024 025 [id number] [address] [place], [address], 05:01:25 Patient TargetsNo targets recorded. Patient InstructionsNo instructions recorded. Reason for Referral None Reported. Results Created Date Observation Date Name Description Value Unit Range Abnormal Flag Note LastModifiedBy Organization Detail LastModifiedTime 04/20/2004/20/2025 rapid SARS CoV 2 Ag, QL IA, respi rator y speci men rapid SARS CoV 2 Ag, QL IA, respiratory specimen negati ve Not Available [facility] [address], [address] 04/20/2025 17:49:53 04/20/2004/20/2025 rapid flu (A+B) Flu negati ve Not Available Main-[address], [address] 04/20/2025 17:49:51 Result Notes None recorded. Medical [...] % 97 % 113/70 mm[Hg] Not Available [employer] [facility] 4 21:09:53 Date Recorded Body temperature Oxygen saturation Oxygen saturation in Arterial blood by Pulse oximetry Inhaled oxygen flow rate Respiratory rate Heart rate Systolic And Diastolic Provider Name and Address Organization Details Last Updated DateTime 5 97.6 [degF] 97 % 97 % 2 L/min 22 /min 63 /min 152/96 mm[Hg] Not Available [facility] 5 14:28:52 Date Recorded Respiratory rate Body [...] /min 90 /min 118/64 mm[Hg] Not Available [employer] - production 3 12:26:46 Social History None [...] ICD10 Code Diagnosis IMO Codes Diagnosis Note [id number] Wolf Gaffney MD Main - [address] [address] 07/06/2023 12:26:44 07/07/2023 10:24:56 Chronic pain syndrome 824063351 G89.4 This 73-year-ol d female was in [...] d that she 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 She will follow-up with her PCP. The patient agreed with this plan. [id number] James Reyes MD Main - [address] [address] 04/04/2024 21:09:50 04/04/2024 22:54:52 Abdominal pain [id number] R10.9 As noted, we were called to see this patient regarding concerns of suprapubic and flank pain. Evaluation in the field was performed by my group segment consultant colleague, as noted above, I provided real-time [...] with a normal urinalysis and her age. [id number] Alfred Hensley MD [address] [address] 04/08/2025 14:28:45 04/09/2025 20:43:57 Acute exacerbation of chronic obstructive pulmonary disease [id number] J44.1 [id number] LOY MARTINEZ MD [place] [address] 04/20/2025 17:46:40 04/21/2025 09:53:43 Acute exacerbation of chronic obstructive pulmonary disease [id number] J44.1 [id number] Health Concerns Section Related Observation LastModified by Organization Detai ls LastModified Time None Recorded Concern Status LastModified by Organization Details LastModified Time None Recorded Advance Directives Directive None Recorded Payers Insurance Date Sequence Insurance Name Policy Number Policy Wesley Covered Member ID Wesley Member ID Guarantor Name 04/20/2025 1 [facility]LY [facility] - DOS ON OR AFTER 2022 - DUAL ELIGIBLE - [employer] OPTIONS AND ONE CARE (MEDICARE REPLACEMENT/ADV ANTAGE - HMO) Mine Peacock [id number] Mine Peacock Notes Date Note Type Note Provider Name and Address Organization Details Recorded Time 07/06/2023 text/html ROS as noted in the [facility] CRC Nurse Triage Notes (Angela Dunn): [...] visit on 07/06 - Donnie Gaffney MD [address] [place] [address],[address], [place], [address], [facility] 07/06/2023 12:33:16 04/04/2024 text/html HPI: Possible UTI - lower stomach pain and pressure when passing urine. ...................... ...................... ...................... ...................... ...................... ...................... ......... CRC Nurse Triage Notes (Ethel Parry): Chief Complaints: Abdominal Pain, UTI/Pyelonephritis PMH: COPD/Asthma, Diabetes Comments: Spoke with [facility] SNAP ATTACHER Rajwinder who reporting member is having s/s of UTI, hx of recurrent UTI's, DM, HTN, HF, Member was prescribed one dose of Nitrofurantoin, and UC pending (sent off), member is c/o sharp pelvic pain, dysuria. Denies fever or hematuria. SNAP ATTACHER asking for NELDA to see member before going to the ED for further workupLazaro GUTIERREZ Gravity Prospecting Observer Organization Information for [employer] Legal Name: [facility] Address: [address] [place] [address], Clin Application Specialist: oYan Montana MD [place] No.: [id number] Gravity Prospecting Observer POC Test Results from [facility] Urine Dipstick (19:30:04) Urine leukocytes: - IBAN Urine nitrites: - NIT Urine urobilinogen: - URO Urine protein: trace PRO Urine pH: 5.0 pH Urine blood: - BLO Urine specific gravity: 1.015 SG Urine ketones: - KET Urine bilirubin: - TERESA Urine glucose: - GLU ...................... ...................... ...................... ...................... ...................... ...................... ......... Gravity Prospecting Observer Note From Alfonzo Barragan: Pt reports bilateral flank pain and suprapubic pain since yesterday. Pt denies dysuria, hematuria, f/n/v/d. Pt is alert, visibly uncomfortable. VSS. Afebrile. Non focal neuro exam. Normal gait. Lungs CTA. Suprapubic tenderness. Bilateral CVA tenderness. No LE edema. Unremarkable UA. [facility] contacted and advised ED transport for CT scan. 911 initiated for transport to [place] ED. SBAR to [facility] BLS. ...................... ...................... ...................... ...................... ...................... ...................... ......... Disposition: Fulfilled James Reyes MD [address] [place] [address],[address], [place], [address], [facility] 04/04/2024 21:11:47 04/08/2025 text/html CRC Nurse Triage [...] to seek emergency care -Narda Figueroa RN Gravity Prospecting Observer Organization Information for Suraj Dawson Business Legal Name: [employer]. Address: [address] [place] [address], Clin Application Specialist: Vishal Dawson MD [facility] No.: [id number] Gravity Prospecting Observer POC Test Results from Suraj Dawson Rapid COVID antigen (14:26:34) COVID: - Attachments uploaded as part of this test result can be found under Documents section. Rapid influenza antigen (14:26:35) Flu: - Attachments uploaded as part of this test result can be found under Documents section. ...................... ...................... ...................... ...................... ...................... ...................... ......... Gravity Prospecting Observer Note From Suraj Dawson: Encountered patient seated [...] one hour prior to contact with this grant writer. POCT Covid and flu swabs performed, both resulted negative; [facility] notified. Skin warm, dry and of appropriate color for ethnicity. Head and neck, free of trauma and edema. -JVD. Breath sounds exhibit expiratory wheezes in all rivers. Abdomen is soft, non-tender and non-distended. Upper extremities, free of trauma and edema. Lower extremities exhibit 2+ pitting edema on the right and trace edema on the left; peripheral pulses present throughout. [facility] contacted: 40 mg of PO prednisone administered after medication r ights were reconciled with patient. [facility] state sale grant writer prescription for further treatment to a pharmacy of patient s choice. [facility] states patient should be seen by her primary care this coming week for more extensive work up. Patient was encouraged to monitor herself for worsening shortness of breath, chest pain or fevers and was encouraged to seek further medical attention including 911 if said symptoms were to develop. Patient verbalizes understanding of the plan and states she is comfortable remaining home today. [facility] Lab Orders: rapid flu (A+B): Performed rapid SARS CoV 2 Ag, QL IA, respiratory specimen: Performed [facility] Medication Orders: prednisone 20 mg tablet: Performed prednisone 20 mg tablet: Performed ...................... ...................... ...................... ...................... ...................... ...................... ......... [facility] Consulted: Alfred Hensley ...................... ...................... ...................... ...................... ...................... ...................... ......... Disposition: Fulfilled Alfred Hensley MD [address] [place] [address],[address], [place], [address], [facility] 04/09/2025 08:32:42 04/20/2025 text/html CRC Nurse Triage [...] signs of when to seek emergency care. Gravity Prospecting Observer Organization Information for Suraj Dawson Business Legal Name: [employer] Address: [address] [place] [id number], Clin Application Specialist: Vishal Dawson MD [facility] No.: [id number] Gravity Prospecting Observer POC Test Results from Suraj Dawson Rapid influenza antigen (17:38:25) Flu: - Attachments uploaded as part of this test result can be found under Documents section. Rapid COVID antigen (17:38:26) COVID: - Attachments uploaded as part of this test result can be found under Documents section. ...................... ...................... ...................... ...................... ...................... ...................... ......... Gravity Prospecting Observer Note From Suraj Dawson: Encountered patient seated upright and conscious with family present. Patient reports history of COPD and is currently experiencing congestion, shortness of breath and a cough that is not productive but I can feel something in there and I can t get it out. Patient denies chest pain and fevers. POCT COVID and flu swabs performed, both resulted negative; [facility] notified. Skin warm, dry and of appropriate color for ethnicity. Head and neck, free of trauma and edema. -JVD. Breath sounds diminished in all rivers but exhibit expiratory wheezes in the bases bilaterally. Abdomen is soft, non-tender and non-distended. Extremities free of trauma and edema. [facility] contacted: 1 duoneb treatment administered. 40mg PO prednisone administered. During exam it was noted that patient was treated for similar symptoms on 04/08/25 and received a prescription for prednisone, however was unable to fulfill it and has gone untreated since. Medications administered after r ights were reconciled with patient. [facility] states they will send a prescription for [...] today and has an appointment with her eco industrial development consultant on 04/28/25. [facility] Lab Orders: rapid flu (A+B): Performed rapid SARS CoV 2 Ag, QL IA, respiratory specimen: Performed [facility] Medication Orders: prednisone 20 mg tablet: Performed ipratropium 0.5 mg-albuterol 3 mg (2.5 mg base)/3 mL nebulization soln: Performed ...................... ...................... ...................... ...................... ...................... ...................... ......... [facility] Consulted: Loy Martinez ...................... ...................... ...................... ...................... ...................... ...................... ......... Disposition: Fulfilled LOY MARTINEZ MD [address] [place] [address],[address] [facility], [place], [address], [employer] 04/20/2025 21:02:28 OBGyn Episode No OBEpisode recorded.
--- OUTSIDE RECORDS SUMMARY | 2025-05-24 14:17 | XMS_ITS | Clinical Summary ---
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 140 mg/dL LAB CHEMISTRY METHOD 06/14/2024 12:36 PM EST [facility] Blood Venous blood specimen / Unknown Venipuncture / Unknown 06/14/2024 4:50 AM EST 06/14/2024 8:48 AM EST us Delaney Sherman MD LAB BLOOD ORDERABLES Final Resu lt [facility] [place] ([facility] LAB [address] [place] [address], from Last 3 Months or Most Recently Relevant to Health Maintenance Insurance [employer] MEDICARE Member Subscriber Plan / Payer (Ef fective 2023-Present) Name:Mine Peacock Relation to Subscriber:Self Name:Mine Peacock Payer ID:[id number] Group ID:[id number] Type:Not on file Address: [place] [address] [address] [id number] Care Teams Rigging Worker Relationship Specialty Start Date End Date Delaney Sherman MD [address] [place] [id number] PCP - General Hospitalist Medicine 06/14/24
--- OUTSIDE RECORDS SUMMARY | 2025-05-24 14:17 | XMS_ITS | Encounter Summary ---
Author Organization [facility] Address [address] [place] [address] Care Team Providers Care Cardiovascular Surgeon Name Role Phone Delaney Sherman MD Primary Care Provider Encounter Details Date Type Department Care Team (Latest Contact Info) Description 06/14/2024 Lab Requisition [facility] - Main Lab [address] [place] [address] Delaney Sherman MD [address] [place] [id number] [facility] (current) use of insulin (CMS/HCC V24, CMS/HCC [...] HEMOGLOBIN A1C Routine 06/14/2024 4:50 AM EST [facility] (current) use of insulin (CMS/[facility]) Type 2 diabetes mellitus without complications (CMS/[facility]) documented in this encounter Results * (ABNORMAL) [...] MD LAB BLOOD ORDERABLES Final Resu lt [facility] [address] [place] [address], documented in this encounter Visit Diagnoses 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
--- OUTSIDE RECORDS SUMMARY | 2025-05-24 14:17 | XMS_ITS | Clinical Summary ---
Author Organization [facility] Address [address] [place] [address] Phone Care Team Providers Care Ride Attendant Name Role Phone Shelbi Perez MD Primary Care Provider [phone] Allergies Active Allergy Reactions Criticality Noted Date Comments Adhesive Tape 08/12/2021 Other reaction(s): skin irritation Fluticasone-Sodium Chloride Other (see comments) 08/12/2021 Trimethobenzamide 07/09/2021 Other reaction(s): GI s/s Medications acetaminophen (TYLENOL) 500 MG tablet Active Albuterol Sulfate 108 (90 Base) MCG/ACT aerosol powder 1 puff by Other route Active Aclidinium [place] ([place] PRES[place]) Inhale 4 Active insulin [...] PEN NEEDLES 31G X 5 MM [facility] USE TO ADMINISTER INSULIN [...] to complete this topic Insurance [place] [employer] ([id number]) [place] [facility] ([id number]) Care Teams Ride Attendant Relationship Specialty Start Date End Date Shelbi Perez MD [facility] [place] [address] PCP - General Internal Medicine 09/18/21
--- OUTSIDE RECORDS SUMMARY | 2025-05-24 14:17 | XMS_ITS | Patient Health Record ---
Author Organization [facility] liance Address [address] [place] [address] Care Team Providers Care Social Media Strategist Name Role Phone Shelbi Perez Primary Care Provider Unavailabl e Clinical, Operations Unavailable Unavailable Alessia Garza Unavailable [phone] Rajwinder Johns Unavailable [phone] Opal Gustafson Unavailable [phone] Allergies Allergen (clinical drug ingredient) Drug/Non Drug [...] 1 tablet Orally Twice a day Not-Taking Metoclopramide HCl 5 MG 1 tablet before meals Orally 3 times a day Active amLODIPine Besylate 5 MG 1 tablet Orally Once a day Member reports not taking. Not-Taking Ipratropium-Albuterol 0.5-2.5 (3) MG/3ML 3 mL as needed Inhalation every 6 hrs Member reports not taking. Not-Taking Budesonide 2 MG/10ML 10 mL Orally Twice a day Member reports not taking. Not-Taking Loratadine 10 MG 1 tablet Orally Once a day; Duration: 30 days Member reports not taking. Not-Taking Cyclobenzaprine HCl 10 MG 1 tablet at bedtime as needed Orally Once a day Member reports not taking. Not-Taking Pramipexole Dihydrochloride 0.5 MG 1 tablet Orally 3 times a day Active Tylenol Extra Strength 500 MG 1 tablet as needed Orally every 6 hrs OTC Active hydrOXYzine HCl 25 MG as directed Orally twice a day PRN anxiety Active Citalopram Hydrobromide 10 MG 1 tablet Orally Once a day Active Albuterol Sulfate (2.5 MG/3ML) 0.083% 3 mL as needed Inhalation every 6 hrs PRN only Active Insulin Aspart FlexPen 100 UNIT/ML as directed Subcutaneous Sliding scale TID Active Albuterol Sulfate HFA 108 (90 Base) MCG/ACT 1 puff as needed Inhalation every 4 hrs PRN Active Lantus SoloStar 100 UNIT/ML 20 units Subcutaneous daily; Duration: 30 days Active Montelukast Sodium 10 MG 1 tablet Orally Once a day Active Dulaglutide 3 MG/0.5ML as directed Subcutaneous weekly Active Oxygen Concentrator 2-3 liters 2lPM as needed to maintain 2 sat 88-92% continuous 2L PRN Active traZODone HCl 150 MG 1 tablet at bedtime Orally Once a day Active [facility] Fluticasone Propionate 50 MCG/ACT 1 spray in each nostril Nasally Twice a day; Duration: 30 days Active Gabapentin 300 MG 1 capsule Orally twice a day Active buPROPion HCl ER (SR) 150 MG 1 tablet in the morning Orally Once a day Active Lisinopril 20 MG 1 tablet Orally Once a day Active Aspirin 81 MG 1 tablet Orally Once a day; Duration: 90 days Active Vitamin D3 125 MCG (5000 UT) 1 capsule Orally Once a day; Duration: 90 days Active Problems Problem Type SNOMED Code ICD Code Onset Dates Problem Status W/U Status Risk Notes Problem Vitamin D deficiency (16139525) Vitamin D deficiency, unspecified (E55.9) Active confirmed Problem Dysuria (44795608) Dysuria (R30.0) Inactive confirmed Problem Type II diabetes mellitus without complication (282181004) Diabetes (E11.9) Inactive confirmed Problem Tinea unguium (421297683) Tinea unguium (B35.1) Active confirmed Problem Obstructive sleep apnea syndrome (26218294) ALDO on CPAP (G47.33) Active confirmed Problem Chest pain (76205125) Chest pain (R07.9) Problem resolved confirmed Problem Heart failure (46861903) Heart failure, unspecified (I50.9) Inactive confirmed Problem History of fall (760529205) History of falling (Z91.81) Active confirmed Problem Hypertension (50229562) HTN (hypertension) (I10) Inactive confirmed Problem Acute exacerbation of chronic obstructive airways disease (339357987) COPD exacerbation (J44.1) Problem resolved confirmed Problem COPD - Chronic obstructive pulmonary disease (66657065) COPD (chronic obstructive pulmonary disease) (J44.9) Active confirmed Problem Dyspnea (454977926) Dyspnea (R06.00) Inactive confirmed Problem Tachycardia (4272405) Tachycardia, unspecified (R00.0) Active confirmed Problem Mixed incontinence (564750284) Mixed incontinence (N39.46) Active confirmed Problem Generalized anxiety disorder (15712211) RACHNA (generalized anxiety disorder) (F41.1) Active confirmed Problem Polyneuropathy due to type 2 diabetes mellitus (139242548) Type 2 diabetes mellitus with diabetic polyneuropathy (E11.42) Active confirmed Problem Chronic kidney disease (109419887) CKD (chronic kidney disease) (N18.9) Inactive confirmed Problem Polyneuropathy (68042997) Polyneuropathy (G62.9) Inactive confirmed Problem Moderate recurrent major depression (04717390) Major depressive disorder, recurrent episode, moderate (F33.1) Active confirmed Problem Polymyalgia rheumatica (97626756) Polymyalgia rheumatica (M35.3) Active confirmed Problem Restless legs (52893778) Restless legs syndrome (RLS) (G25.81) Active confirmed Problem Dependence on supplemental oxygen (099699687086) 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) Active confirmed Problem Dementia (37280768) Dementia, unspecified, without behavioral disturbance (F03.90) Active confirmed Problem Chronic respiratory failure (86443072) Chronic respiratory failure with hypoxia (J96.11) Active confirmed Problem Chronic kidney disease stage 4 (164410199) Chronic kidney disease, stage 4 (severe) (N18.4) Active confirmed Problem Urinary tract infectious disease (13505075) Recurrent UTI (urinary tract infection) (N39.0) Active confirmed Problem Osteoarthritis of knee (508879165) Unilateral primary osteoarthritis, left knee (M17.12) Active confirmed Problem Extrapyramidal disorder (12704020) Extrapyramidal disorder (G25.9) Active confirmed Problem Chronic dacryocystitis (23206432) 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) Active confirmed Problem Panlobular emphysema (4985070) Panlobular emphysema (J43.1) Active confirmed Problem Acquired hammer toe of right foot (5049256103482160 ) Other hammer toe(s) (acquired), right foot (M20.41) Active confirmed Problem Acquired hammer toe of left foot (5206794304113738 ) Other hammer toe(s) (acquired), left foot (M20.42) Active confirmed Problem Abnormal gait (31111550) Other abnormalities of gait and mobility (R26.89) Active confirmed Problem Unspecified symptoms and signs involving the genitourinary system (R39.9) Active confirmed Problem Displaced trimalleolar fracture of right lower leg, subsequent encounter for closed fracture with routine healing (S82.851D) Active confirmed Problem Spondylosis without myelopathy (58468978) Arthritis, low back (M47.819) Active confirmed Problem Diarrhea (65144352) Diarrhea, unspecified (R19.7) Active confirmed Problem Chronic pain (26351880) Other chronic pain (G89.29) Active confirmed Problem Long-term current use of insulin (927848213) shelter (current) use of insulin (Z79.4) Active confirmed Problem Chronic diastolic heart failure (753485047) Chronic diastolic (congestive) heart failure (I50.32) Active confirmed Problem 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 failure (63698479570380) 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 kidney disease, or unspecified chronic kidney disease (I13.0) Active confirmed Problem Diabetic peripheral neuropathy associated with type 2 diabetes mellitus (7536648254035) Type 2 diabetes mellitus with diabetic neuropathy, unspecified (E11.40) Active confirmed Problem Morbid obesity (disorder) (254066160) Morbid (severe) obesity due to excess calories (E66.01) Active confirmed Problem Abrasion of skin (43792266) Skin abrasion (T14.8XXA) Active confirmed Problem Hyperglycemia due to type 2 diabetes mellitus (332814391184929) Uncontrolled type 2 diabetes mellitus with hyperglycemia (E11.65) Active confirmed Problem Disease caused by Severe acute respiratory syndrome coronavirus 2 (disorder) (763023472) COVID-19 virus infection (U07.1) Problem resolved confirmed Problem COVID-19 (661398208) COVID-19 (U07.1) Inactive confirmed Problem Chronic kidney disease stage 3A (937541881) Stage 3a chronic kidney disease (N18.31) Inactive confirmed Problem Body mass index 40+ - severely obese (710111890) Body mass index [BMI] 40.0-44.9, adult (Z68.41) Active confirmed Problem Diabetic on non-insulin injectable medication (finding) (817778082) Long-term current use of injectable noninsulin antidiabetic medication (Z79.85) Active confirmed Problem Acquired nasolacrimal duct stenosis (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) 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) Inactive confirmed Problem Late effect of fracture of lower extremities (88272449) Closed displaced trimalleolar fracture of right ankle, sequela (S82.851S) Inactive confirmed Vital Signs Heart Rate 68 /min 05/22/2025 Temperature 97.3 degrees Fahrenheit 05/22/2025 Respiratory Rate 18 /min 05/22/2025 Height-cm 152.4 cm 05/22/2025 Oximetry 98 % 05/22/2025 Blood pressure diastolic 62 mm Hg 05/22/2025 Weight-kg 97.07 kg 04/17/2025 Height 60 in 05/22/2025 Blood pressure systolic 124 mm Hg 05/22/2025 Weight 214 lbs 04/17/2025 BMI 41.79 kg/m2 04/17/2025 Encounters Encounter Location Date Provider Diagnosis [address] [address] 05/22/2025 Alessia Garza COPD (chronic obstructive pulmonary disease) J44.9 and Palliative care by specialist Z51.[address] [address] 06/06/2024 Rajwinder Johns Displaced trimalleolar fracture of right lower leg, subsequent encounter for closed fracture with routine healing S82.851D [address] [address] 06/24/2024 Rajwinder Johns 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 kidney disease, or unspecified chronic kidney disease I13.0 ; Chronic diastolic (congestive) heart failure I50.32 ; Stage 3a chronic kidney disease N18.31 ; COPD (chronic obstructive pulmonary disease) J44.9 ; Type 2 diabetes mellitus with diabetic neuropathy, unspecified E11.40 ; shelter (current) use of insulin Z79.4 ; Major [...] dependent Z99.81 and Other chronic pain G89.[address] [address] 06/30/2024 Rajwinder Johns COPD (chronic obstructive pulmonary disease) J44.9 and RACHNA (generalized anxiety disorder) F41.[address] [place] [address] 07/05/2024 Rajwinder Johns COPD (chronic obstructive pulmonary disease) J44.9 ; RACHNA (generalized anxiety disorder) F41.1 and 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 [address] 07/07/2024 Rajwinder Johns 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 kidney disease, or unspecified chronic kidney disease I13.0 ; Chronic diastolic (congestive) heart failure I50.32 ; Stage 3a chronic kidney disease N18.31 ; COPD (chronic obstructive pulmonary disease) J44.9 ; Type 2 diabetes mellitus with diabetic neuropathy, unspecified E11.40 ; 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 Z79.4 ; Major [...] dependent Z99.81 and Other chronic pain G89.[address] [address] 07/15/2024 Rajwinder Johns COPD (chronic obstructive pulmonary disease) J44.9 ; RACHNA (generalized anxiety disorder) F41.1 ; 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 ; Type 2 diabetes mellitus with diabetic neuropathy, unspecified E11.40 ; Uncontrolled type 2 diabetes mellitus with hyperglycemia E11.65 ; Chronic kidney disease, stage 3b N18.32 ; Morbid (severe) obesity due to excess calories E66.01 ; Body mass index [BMI] 40.0-44.9, adult Z68.41 ; shelter (current) use of insulin Z79.4 ; Long-term current use of injectable noninsulin antidiabetic medication Z79.85 and 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 kidney disease, or unspecified chronic kidney disease I13.[address] [address] 07/22/2024 Rajwinder Johns COPD (chronic obstructive pulmonary disease) J44.9 ; RACHNA (generalized anxiety disorder) F41.1 ; 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 ; Type 2 diabetes mellitus with diabetic neuropathy, unspecified E11.40 ; Uncontrolled type 2 diabetes mellitus with hyperglycemia E11.65 ; Chronic kidney disease, stage 3b N18.32 ; Morbid (severe) obesity due to excess calories E66.01 ; Body mass index [BMI] 40.0-44.9, adult Z68.41 ; 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 Z79.4 ; Long-term current use of injectable noninsulin antidiabetic medication Z79.85 and 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 kidney disease, or unspecified chronic kidney disease I13.[address] [address] 07/28/2024 Rajwinder Johns COPD (chronic obstructive pulmonary disease) J44.9 ; RACHNA (generalized anxiety disorder) F41.1 ; 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 ; Type 2 diabetes mellitus with diabetic neuropathy, unspecified E11.40 ; Uncontrolled type 2 diabetes mellitus with hyperglycemia E11.65 ; Chronic kidney disease, stage 3b N18.32 ; Morbid (severe) obesity due to excess calories E66.01 ; Body mass index [BMI] 40.0-44.9, adult Z68.41 ; shelter (current) use of insulin Z79.4 ; Long-term current use of injectable noninsulin antidiabetic medication Z79.85 and 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 kidney disease, or unspecified chronic kidney disease I13.[address] [address] 08/02/2024 Rajwinder Johns COPD (chronic obstructive pulmonary disease) J44.9 ; RACHNA (generalized anxiety disorder) F41.1 ; 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 ; Type 2 diabetes mellitus with diabetic neuropathy, unspecified E11.40 ; Uncontrolled type 2 diabetes mellitus with hyperglycemia E11.65 ; Chronic kidney disease, stage 3b N18.32 ; Morbid (severe) obesity due to excess calories E66.01 ; Body mass index [BMI] 40.0-44.9, adult Z68.41 ; shelter (current) use of insulin Z79.4 ; Long-term current use of injectable noninsulin antidiabetic medication Z79.85 and 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 kidney disease, or unspecified chronic kidney disease I13.[address] [address] 08/08/2024 Rajwinder Nat COPD (chronic obstructive pulmonary disease) J44.9 ; RACHNA (generalized anxiety disorder) F41.1 ; 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 ; Type 2 diabetes mellitus with diabetic neuropathy, unspecified E11.40 ; Uncontrolled type 2 diabetes mellitus with hyperglycemia E11.65 ; Chronic kidney disease, stage 3b N18.32 ; Morbid (severe) obesity due to excess calories E66.01 ; Body mass index [BMI] 40.0-44.9, adult Z68.41 ; 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 Z79.4 ; Long-term [...] for closed fracture with routine healing S82.851D [address] [address] 08/16/2024 Rajwinder Johns COPD (chronic obstructive pulmonary disease) J44.9 ; RACHNA (generalized anxiety disorder) F41.1 ; 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 ; Type 2 diabetes mellitus with diabetic neuropathy, unspecified E11.40 ; Uncontrolled type 2 diabetes mellitus with hyperglycemia E11.65 ; Chronic kidney disease, stage 3b N18.32 ; Morbid (severe) obesity due to excess calories E66.01 ; Body mass index [BMI] 40.0-44.9, adult Z68.41 ; 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 Z79.4 ; Long-term [...] for closed fracture with routine healing S82.851D [address] [address] 08/23/2024 Rajwinder Nat COPD (chronic obstructive pulmonary disease) J44.9 ; RACHNA (generalized anxiety disorder) F41.1 ; 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 ; Type 2 diabetes mellitus with diabetic neuropathy, unspecified E11.40 ; Uncontrolled type 2 diabetes mellitus with hyperglycemia E11.65 ; Chronic kidney disease, stage 3b N18.32 ; Morbid (severe) obesity due to excess calories E66.01 ; Body mass index [BMI] 40.0-44.9, adult Z68.41 ; shelter (current) use of insulin Z79.4 ; Long-term [...] for closed fracture with routine healing S82.851D [address] [address] 08/30/2024 Rajwinder Johns COPD (chronic obstructive pulmonary disease) J44.9 ; RACHNA (generalized anxiety disorder) F41.1 ; 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 ; Type 2 diabetes mellitus with diabetic neuropathy, unspecified E11.40 ; Uncontrolled type 2 diabetes mellitus with hyperglycemia E11.65 ; Chronic kidney disease, stage 3b N18.32 ; Morbid (severe) obesity due to excess calories E66.01 ; Body mass index [BMI] 40.0-44.9, adult Z68.41 ; 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 Z79.4 ; Long-term [...] routine healing S82.851D and Skin abrasion T14.8XXA [address] [address] 09/01/2024 Rajwinder Johns RACHNA (generalized anxiety disorder) F41.1 ; Other chronic pain G89.29 ; Unilateral primary osteoarthritis, left knee M17.12 ; Arthritis, low back M47.819 ; Displaced trimalleolar fracture of right lower leg, subsequent encounter for closed fracture with routine healing S82.851D ; Skin abrasion T14.8XXA and Major depressive disorder, recurrent episode, moderate F33.[address] [address] 09/08/2024 Rajwinder Johns RACHNA (generalized anxiety disorder) F41.1 ; Other chronic pain G89.29 ; Unilateral primary osteoarthritis, left knee M17.12 ; Arthritis, low back M47.819 ; Displaced trimalleolar fracture of right lower leg, subsequent encounter for closed fracture with routine healing S82.851D ; Skin abrasion T14.8XXA and Major depressive disorder, recurrent episode, moderate F33.[address] [address] 09/15/2024 Rajwinder Johns RACHNA (generalized anxiety disorder) [...] disease) J44.9 ; 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 ; 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 Z79.4 ; Long-term current use of injectable noninsulin antidiabetic medication Z79.85 ; Chronic kidney disease, stage 3b N18.32 and Morbid (severe) obesity due to excess calories E66.[address] [address] 09/22/2024 Rajwindre Johns RACHNA (generalized anxiety disorder) F41.1 ; [...] disease) J44.9 ; 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 ; shelter (current) use of insulin Z79.4 ; Long-term current use of injectable noninsulin antidiabetic medication Z79.85 ; Chronic kidney disease, stage 3b N18.32 and Morbid (severe) obesity due to excess calories E66.[address] [address] 09/29/2024 Rajwinder Johns RACHNA (generalized anxiety disorder) [...] disease) J44.9 ; 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 ; shelter (current) use of insulin Z79.4 ; Long-term current use of injectable noninsulin antidiabetic medication Z79.85 ; Chronic kidney disease, stage 3b N18.32 and Morbid (severe) obesity due to excess calories E66.01 [facility] [address] [facility] [place] [address] 10/07/2024 Rajwinder Johns RACHNA (generalized anxiety disorder) [...] disease) J44.9 ; 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 ; shelter (current) use of insulin Z79.4 ; Long-term current use of injectable noninsulin antidiabetic medication Z79.85 ; Chronic kidney disease, stage 3b N18.32 and Morbid (severe) obesity due to excess calories E66.[address] [address] 10/14/2024 Rajwinder Johns RCAHNA (generalized anxiety disorder) F41.1 ; Other chronic [...] disease) J44.9 ; 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 ; shelter (current) use of insulin Z79.4 ; Long-term current use of injectable noninsulin antidiabetic medication Z79.85 ; Chronic kidney disease, stage 3b N18.32 and Morbid (severe) obesity due to excess calories E66.[address] [place] [address] 10/21/2024 Rajwinder Johns RACHNA (generalized anxiety disorder) [...] disease) J44.9 ; 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 ; 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 Z79.4 ; Long-term current use of injectable noninsulin antidiabetic medication Z79.85 ; Chronic kidney disease, stage 3b N18.32 and Morbid (severe) obesity due to excess calories E66.[address] [place] [address] 10/27/2024 Rajwinder Johns Arthritis, low back M47.819 [...] N18.32 and Seasonal allergic reaction J30.2 [facility] [address] [place] [address] 10/28/2024 Operations Clinical Type 2 diabetes mellitus [...] closed fracture with routine healing S82.851D ; 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 Z79.4 ; Long-term current use of injectable noninsulin antidiabetic medication Z79.85 ; 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 ; Morbid (severe) obesity due to excess calories E66.01 ; Body mass index [BMI] 40.0-44.9, adult Z68.41 ; Skin abrasion T14.8XXA and Seasonal allergic reaction J30.[address] [address] 11/04/2024 Rajwinder Johns Arthritis, low back M47.819 [...] 3b N18.32 and Seasonal allergic reaction J30.[address] [address] 11/14/2024 Rajwinder Evansard Arthritis, low back M47.819 ; Type 2 diabetes mellitus with diabetic neuropathy, unspecified E11.40 ; 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 kidney disease, or unspecified chronic kidney disease I13.0 ; COPD (chronic obstructive pulmonary disease) J44.9 ; 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 and Chronic kidney disease, stage 3b N18.[address] [address] 11/28/2024 Rajwinder Evansard Arthritis, low back M47.819 ; Type 2 diabetes mellitus with diabetic neuropathy, unspecified E11.40 ; 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 kidney disease, or unspecified chronic kidney disease I13.0 ; COPD (chronic obstructive pulmonary disease) J44.9 ; 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 and Chronic kidney disease, stage 3b N18.[address] [address] 12/02/2024 Rajwinder Johns History of falling Z91.[address] [address] 12/16/2024 Rajwinder Nat Arthritis, low back M47.819 ; Type 2 diabetes mellitus with diabetic neuropathy, unspecified E11.40 ; 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 kidney disease, or unspecified chronic kidney disease I13.0 ; COPD (chronic obstructive pulmonary disease) J44.9 ; 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 and Chronic kidney disease, stage 3b N18.[address] [address] 12/27/2024 Rajwinder Nat COPD (chronic obstructive pulmonary disease) J44.9 ; Recurrent UTI (urinary tract infection) N39.0 ; Type 2 diabetes mellitus with diabetic neuropathy, unspecified E11.40 ; Uncontrolled type 2 diabetes mellitus with hyperglycemia E11.65 ; Chronic respiratory failure with hypoxia J96.11 ; shelter (current) use of insulin Z79.4 ; Long-term current use of injectable noninsulin antidiabetic medication Z79.85 and 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 [facility] [address] [place] [address] 2025 Rajwinder Johns COPD (chronic obstructive pulmonary disease) J44.9 ; Recurrent UTI (urinary tract infection) N39.0 ; Type 2 diabetes mellitus with diabetic neuropathy, unspecified E11.40 ; Uncontrolled type 2 diabetes mellitus with hyperglycemia E11.65 ; Chronic respiratory failure with hypoxia J96.11 ; 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 Z79.4 ; Long-term current use of injectable noninsulin antidiabetic medication Z79.85 ; 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 ; 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 kidney disease, or unspecified chronic kidney disease I13.0 ; Chronic kidney disease, stage 3b N18.32 ; Vitamin D deficiency, unspecified E55.9 and Mixed incontinence N39.[address] [address] 01/27/2025 Rajwinder Johns COPD (chronic obstructive pulmonary disease) J44.9 ; Recurrent UTI (urinary tract infection) N39.0 ; Type 2 diabetes mellitus with diabetic neuropathy, unspecified E11.40 ; Uncontrolled type 2 diabetes mellitus with hyperglycemia E11.65 ; Chronic respiratory failure with hypoxia J96.11 ; 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 Z79.4 ; Long-term current use of injectable noninsulin antidiabetic medication Z79.85 ; 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 ; 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 kidney disease, or unspecified chronic kidney disease I13.0 ; Mixed incontinence N39.46 and Chronic kidney disease, stage 4 (severe) N18.[address] [address] 01/30/2025 Rajwinder Johns COPD (chronic obstructive pulmonary disease) J44.9 ; Recurrent UTI (urinary tract infection) N39.0 ; Type 2 diabetes mellitus with diabetic neuropathy, unspecified E11.40 ; Uncontrolled type 2 diabetes mellitus with hyperglycemia E11.65 ; Chronic respiratory failure with hypoxia J96.11 ; shelter (current) use of insulin Z79.4 ; Long-term current use of injectable noninsulin antidiabetic medication Z79.85 ; 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 ; 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 kidney disease, or unspecified chronic kidney disease I13.0 ; Mixed incontinence N39.46 and Chronic kidney disease, stage 4 (severe) N18.[address] [address] 02/03/2025 Rajwinder Johns Diarrhea, unspecifie d R19.[address] [address] 02/14/2025 Rajwinder Johns COPD (chronic obstructive pulmonary disease) J44.9 ; Type 2 diabetes mellitus with diabetic neuropathy, unspecified E11.40 ; Uncontrolled type 2 diabetes mellitus with hyperglycemia E11.65 ; Chronic respiratory failure with hypoxia J96.11 ; shelter (current) use of insulin Z79.4 ; Long-term current use of injectable noninsulin antidiabetic medication Z79.85 ; 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 ; 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 kidney disease, or unspecified chronic kidney disease I13.0 and Chronic kidney disease, stage 4 (severe) N18.[address] [address] 02/24/2025 Rajwinder Johns COPD (chronic obstructive pulmonary disease) J44.9 ; Type 2 diabetes mellitus with diabetic neuropathy, unspecified E11.40 ; Uncontrolled type 2 diabetes mellitus with hyperglycemia E11.65 ; Chronic respiratory failure with hypoxia J96.11 ; shelter (current) use of insulin Z79.4 ; Long-term current use of injectable noninsulin antidiabetic medication Z79.85 ; 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 ; 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 kidney disease, or unspecified chronic kidney disease I13.0 and Chronic kidney disease, stage 4 (severe) N18.[address] [address] 03/09/2025 Rajwinder Johns COPD (chronic obstructive pulmonary disease) J44.9 ; Type 2 diabetes mellitus with diabetic neuropathy, unspecified E11.40 ; Uncontrolled type 2 diabetes mellitus with hyperglycemia E11.65 ; Chronic respiratory failure with hypoxia J96.11 ; 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 Z79.4 ; Long-term current use of injectable noninsulin antidiabetic medication Z79.85 ; 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 ; 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 kidney disease, or unspecified chronic kidney disease I13.0 and Chronic kidney disease, stage 4 (severe) N18.4 [facility] [address] [place] [address] 03/21/2025 Rajwinder Nat COPD (chronic obstructive pulmonary disease) J44.9 ; Type 2 diabetes mellitus with diabetic neuropathy, unspecified E11.40 ; Uncontrolled type 2 diabetes mellitus with hyperglycemia E11.65 ; Chronic respiratory failure with hypoxia J96.11 ; 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 Z79.4 ; Long-term current use of injectable noninsulin antidiabetic medication Z79.85 ; 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 ; 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 kidney disease, or unspecified chronic kidney disease I13.0 and Chronic kidney disease, stage 4 (severe) N18.4 [facility] [address] [place] [address] 04/17/2025 Operations Clinical Type 2 diabetes mellitus [...] closed fracture with routine healing S82.851D ; shelter (current) use of insulin Z79.4 ; Long-term [...] and mobility R26.89 and Tachycardia, unspecified R00.0 [facility] [address] [place] [address] 04/25/2025 Alessia Gazra COPD (chronic obstructive pulmonary disease) J44.9 and Palliative care by specialist Z51.5 [facility] [address] [place] [address] 09/26/2024 Rajwinder Johns [facility] [address] [place] [address] 10/10/2024 Rajwinder Nat [facility] [address] [place] [address] 10/10/2024 Rajwinder Nat [facility] [address] [place] [address] 12/02/2024 Rajwinder Nat [facility] (Closed) [address] [place] [address] 03/30/2025 Operations Clinical [facility] (Closed) [address] [place] [address] 04/05/2025 Opal Gustafson [facility] [address] [place] [address] 04/26/2025 Opal Gustafson Assessments Encounter Date Diagnosis (ICD Code) Assessment Notes Treatment Notes Treatment Clinical Notes Section Notes 10/14/2024 RACHNA (generalized anxiety disorder) (ICD-10 - [...] listening to music. - Member agreeable to [facility] referral - In process - Follow up with PCP routinely, and prescriber - Angie Mccray, advised to make her aware of [facility] referral to community therapist - Reminded to call pcp or this [facility] for worsening anxiety or depression -Crisis info [...] managed - F/U with PCP/rheum/ortho as directed 10/21/2024 RACHNA (generalized anxiety disorder) (ICD-10 - [...] listening to music. - Member agreeable to [facility] referral - awaiting contact - Follow [...] listening to music. - Member agreeable to [facility] referral - In process - Follow up with PCP routinely, and prescriber - Angie Mccray, advised to make her aware of [facility] referral to community therapist - Reminded to call pcp or this [facility] for worsening anxiety or depression -Crisis info given and advised to seek ED eval for SI/HI/AVH 10/28/2024 Type 2 diabetes mellitus with diabetic neuropathy, unspecified (ICD-10 - E11.40) 09/29/2024 RACHNA (generalized anxiety disorder) (ICD-10 - [...] listening to music. - Member agreeable to [facility] referral - In process - Follow up with PCP routinely, and prescriber - Angie Mccray, advised to make her aware of [facility] referral to community therapist - Reminded to call pcp or this [facility] for worsening anxiety or depression -Crisis info given and advised to seek ED eval for SI/HI/AVH 11/04/2024 Arthritis, low back (ICD-10 - M47.819) [...] managed - F/U with PCP/rheum/ortho as directed 09/22/2024 RACHNA (generalized anxiety disorder) (ICD-10 - [...] left with him - Member agreeable to [facility] referral today - Follow up with PCP routinely, and prescriber - Angie Mccray 09/13/2024, advised to f/u on referral to community therapist - Reminded to call pcp or this [facility] for worsening anxiety or depression -Crisis info given and advised to seek ED eval for SI/HI/AVH 11/14/2024 Arthritis, low back (ICD-10 - M47.819) [...] managed - F/U with PCP/rheum/ortho as directed 09/15/2024 RACHNA (generalized anxiety disorder) (ICD-10 - [...] listening to music. - Member agreeable to [facility] referral today - Follow up with PCP routinely, and prescriber - Angie Mccray 09/13/2024, advised to f/u on referral to community therapist - Reminded to call pcp or this [facility] for worsening anxiety or depression -Crisis info given and advised to seek ED eval for SI/HI/AVH 12/27/2024 COPD (chronic obstructive pulmonary disease) (ICD-10 - J44.9) J96.11 [facility] Resp Failure with hypoxia Z99.81 O2 dependent [...] to minimize risk of unwanted weight loss 09/08/2024 RACHNA (generalized anxiety disorder) (ICD-10 - [...] to music. - Member considering assistance from [facility] but declines today - Follow up with PCP routinely, and prescriber - Angie Mccray 09/13/2024, advised to f/u on referral to community therapist - Reminded to call pcp or this [facility] for worsening anxiety or depression -Crisis info given and advised to seek ED eval for SI/HI/AVH 11/28/2024 Arthritis, low back (ICD-10 - M47.819) [...] managed - F/U with PCP/rheum/ortho as directed 09/01/2024 RACHNA (generalized anxiety disorder) (ICD-10 - [...] to music. - Member considering assistance from [facility] - Follow up with PCP routinely, and prescriber - Angie Mccray 09/11/2024, advised to f/u on referral to community therapist - Reminded to call pcp or this [facility] for worsening anxiety or depression -Crisis info given and advised to seek ED eval for SI/HI/AVH 08/30/2024 COPD (chronic obstructive pulmonary disease) (ICD-10 [...] to minimize risk of unwanted weight loss 12/02/2024 History of falling (ICD-10 - Z91.81) Chronic with [place] yesterday - Continue use of AD as needed and continue fall/safety precautions -educated on fall avoidance today - Recommend clearing pathways around bedroom, apartment in general - Son/PIPE TESTER asked to help with this - Refer [...] managed - F/U with PCP/rheum/ortho as directed 08/23/2024 COPD (chronic obstructive pulmonary disease) (ICD-10 [...] sat 98% - Had follow up with boat detailer - Continue medications and inhalers as prescribed [...] and mgmt Continue to f/u with Pcp 08/08/2024 COPD (chronic obstructive pulmonary disease) (ICD-10 - J44.9) Z99.81 O2 dependent Chronic/Stable - Member appears stable during visit without sxs of exacerbation today, o2 sat 98% - Had follow up with boat detailer - Continue medications and inhalers as prescribed - Educated member on importance of O2 use as prescribed - Avoid triggers as possible - Monitor for increased dyspnea or productive cough as first signs of exacerbation - Report any changes in symptoms or worsening SOB to providers/PCP/pulm - Encourage healthy diet to minimize risk of unwanted weight loss 01/30/2025 COPD (chronic obstructive pulmonary disease) (ICD-10 [...] sat 98% - Had follow up with boat detailer - Continue medications and inhalers as prescribed [...] sat 98% - Had follow up with boat detailer - Continue medications and inhalers as prescribed [...] sat 98% - Had follow up with boat detailer - Continue medications and inhalers as prescribed [...] to minimize risk of unwanted weight loss 05/22/2025 Palliative care by specialist (ICD-10 - Z51.5) -Discussed disease trajectory and associated symptoms -Encouraged to maintain follow-up appts as scheduled given recent hospitalization -Palliative care contact information reviewed and provided. -Inst[facility] services/contac t information reviewed and provided. -Collaborated with PCP and [facility] care aid 07/15/2024 COPD (chronic obstructive pulmonary disease) (ICD-10 - J44.9) Z99.81 O2 dependent Chronic/Stable - Member appears stable during visit without sxs of exacerbation today, o2 sat 98% - Had follow up with boat detailer - Continue medications and inhalers as prescribed - Educated member on importance of O2 use as prescribed - Avoid triggers as possible - Monitor for increased dyspnea or productive cough as first signs of exacerbation - Report any changes in symptoms or worsening SOB to providers/PCP/pulm - Encourage healthy diet to minimize risk of unwanted weight loss 05/22/2025 COPD (chronic obstructive pulmonary disease) (ICD-10 - J44.9) - Worsening symptoms reviewed as well as when to contact palliative care or PCP 03/09/2025 COPD (chronic obstructive pulmonary disease) (ICD-10 [...] to minimize risk of unwanted weight loss 06/06/2024 Displaced trimalleolar fracture of right lower [...] - Observe fluid restrictions if advised by dope sprayer/PCP - Continue routine F/U with dope sprayer and PCP - Contact provider or call 911/utilize ER or Inst[facility] if approp for acute cardiac concerns - Avoid nephrotoxic meds where possible, renally adjust meds if clinically appropriate - F/U with PCP/nephro for ongoing monitoring/mgmt 07/05/2024 COPD (chronic obstructive pulmonary disease) (ICD-10 - J44.9) Chronic/Resolved exacerbation - Member appears stable during visit without sxs of exacerbation today, o2 sat 98% - Had follow up with boat detailer - Continue medications and inhalers as prescribed - Educated member on importance of O2 use as prescribed - Avoid triggers as possible - Monitor for increased dyspnea or productive cough as first signs of exacerbation - Report any changes in symptoms or worsening SOB to providers/PCP/pulm - Encourage healthy diet to minimize risk of unwanted weight loss 04/25/2025 Palliative care by specialist (ICD-10 - Z51.5) -Palliative care services reviewed. Member/caregive r consented to today's visit and palliative services. -Discussed disease trajectory and associated symptoms -[facility] discussion: See social history section -Advanced Care Planning: HCP: Copy in EMR (eCW) 09/03/2023 Lewis Pappas. MOLST: Completed 04/13/24. DNR/DNI/use non-inv vent/transfer to hospital. To be scanned into eCW -Palliative care contact information reviewed and provided. -Inst[facility] services/contac t information reviewed and provided. -Collaborated with PCP and [facility] care aid 04/17/2025 Type 2 diabetes mellitus with diabetic neuropathy, unspecified (ICD-10 - E11.40) 07/07/2024 Hypertensive heart and chronic kidney disease [...] - Observe fluid restrictions if advised by dope sprayer/PCP - Continue routine F/U with dope sprayer and PCP - Contact provider or call 911/utilize ER or [facility] if approp for acute cardiac concerns - Avoid nephrotoxic meds where possible, renally adjust meds if clinically appropriate - F/U with PCP/nephro for ongoing monitoring/mgmt 04/25/2025 COPD (chronic obstructive pulmonary disease) (ICD-10 - J44.9) -Reviewed energy conservation techniques. - Worsening symptoms reviewed as well as when to contact palliative care or PCP 10/27/2024 Type 2 diabetes mellitus with diabetic [...] Recommend diabetic diet - offered referral to telehealth nurse educator - declines - Discussed potential for end-organ damage with chronic hyperglycemia - F/U with podiatry (as needed/desired) for regular foot checks - Report any sxs of hypo- or hyperglycemia immediately - F/U with PCP/endocrine for ongoing mgmt/monitoring 06/30/2024 RACHNA (generalized anxiety disorder) (ICD-10 - F41.1) Chronic/Improved since ED visit Reviewed nature of anxiety, which can range from excessive worry to incapacitating baseless fear. Reviewed nonmedical management techniques. Member denies increased s/s of anxiety. Member declines assistance from [facility] - Follow up with PCP and prescriber - Angie Mccray, advised to f/u on referral to community therapist - Reminded to call pcp or this [facility] for worsening anxiety 10/07/2024 Other chronic pain (ICD-10 - G89.29) [...] pain/stress on joints - Continue PT at [facility] - Use assistive devices [...] HOME PEDAL DEVICE ORDERED and PENDING DELIVERY 07/05/2024 RACHNA (generalized anxiety disorder) (ICD-10 - F41.1) Chronic/Stable Reviewed nature of anxiety, which can range from excessive worry to incapacitating baseless fear. Reviewed nonmedical management techniques. Member denies increased s/s of anxiety. Member declines assistance from [facility] - Follow up with PCP and prescriber - Angie Mccray, advised to f/u on referral to community therapist - Reminded to call pcp or [facility] for worsening anxiety 09/22/2024 Other chronic pain (ICD-10 - G89.29) [...] pain/stress on joints - Continue PT at [facility] - Use assistive devices [...] pain/stress on joints - Continue PT at [facility] - Use assistive devices [...] HOME PEDAL DEVICE ORDERED and PENDING DELIVERY 07/07/2024 Chronic diastolic (congestive) heart failure (ICD-10 - I50.32) 09/08/2024 Other chronic pain (ICD-10 - G89.29) [...] pain/stress on joints - Continue PT at [facility] - Use assistive devices [...] HOME PEDAL DEVICE ORDERED and PENDING DELIVERY 06/24/2024 Chronic diastolic (congestive) heart failure (ICD-10 - I50.32) 09/01/2024 Other chronic pain (ICD-10 - G89.29) [...] to music. - Member declines assistance from [facility] - Follow up with PCP and [...] to music. - Member declines assistance from [facility] - Follow up with PCP and [...] s/s of anxiety. Member declines assistance from [facility] - Follow up with PCP and [...] s/s of anxiety. Member declines assistance from [facility] - Follow up with PCP and [...] s/s of anxiety. Member declines assistance from [facility] - Follow up with PCP and [...] s/s of anxiety. Member declines assistance from [facility] - Follow up with PCP and [...] s/s of anxiety. Member declines assistance from [facility] - Follow up with PCP and [...] s/s of anxiety. Member declines assistance from [facility] - Follow up with PCP and prescriber - Angie Mccray, advised to f/u on referral to community therapist - Reminded to call pcp or this [facility] for worsening anxiety 04/17/2025 Uncontrolled type 2 diabetes mellitus with hyperglycemia (ICD-10 - E11.65) 03/21/2025 Type 2 diabetes mellitus with diabetic neuropathy, unspecified (ICD-10 - E11.40) 03/09/2025 Type 2 diabetes mellitus with diabetic [...] Chronic/Labile - continues with complaints, seen at [facility] yesterday and received c/b today no infection - Completed recent course of cefpodoxime - Reviewed personal hygeine and changing pad/brief frequently - Avoid bladder irritants like caffeine, smoking - Report any sxs of infection or retention immediately to prescribers for ongoing w/u and mgmt Continue to f/u with Pcp 12/16/2024 Type 2 diabetes mellitus with diabetic neuropathy, unspecified (ICD-10 - E11.40) 11.65 Uncontrolled T2DM with hyperglycemia E66.01 Obesity Z79.4 LT use of insulin Z79.85 LT use of injectable non-insulin antidiabetic me Chronic/Labile Sugars are variable based on diet - Continue check BG as ordered/directed; recommended but declines CGM - Continue medication as prescribed [facility] - Recommend yearly eye exams, A1c - Recommend diabetic diet - offered referral to telehealth nurse educator - declines - Discussed potential for [...] medication as prescribed - [facility] - Recommend yearly eye exams, A1c - Recommend diabetic diet - offered referral to telehealth nurse educator - declines - Discussed potential for end-organ damage with chronic hyperglycemia - F/U with podiatry (as needed/desired) for regular foot checks - Report any sxs of hypo- or hyperglycemia immediately - F/U with PCP/endocrine for ongoing mgmt/monitoring 11.65 Uncontrolled T2DM with hyperglycemia 12/27/2024 Recurrent UTI (urinary tract infection) (ICD-10 [...] to prescribers for ongoing w/u and mgmt 10/14/2024 Other chronic pain (ICD-10 - G89.29) [...] HOME PEDAL DEVICE ORDERED and PENDING DELIVERY 11/14/2024 Type 2 diabetes mellitus with diabetic [...] Recommend diabetic diet - offered referral to telehealth nurse educator - declines - Discussed potential for end-organ damage with chronic hyperglycemia - F/U with podiatry (as needed/desired) for regular foot checks - Report any sxs of hypo- or hyperglycemia immediately - F/U with PCP/endocrine for ongoing mgmt/monitoring 11.65 Uncontrolled T2DM with hyperglycemia 10/21/2024 Other chronic pain (ICD-10 - G89.29) [...] managed - F/U with PCP/rheum/ortho as directed 11/04/2024 Type 2 diabetes mellitus with diabetic [...] Recommend diabetic diet - offered referral to telehealth nurse educator - declines - Discussed potential for end-organ damage with chronic hyperglycemia - F/U with podiatry (as needed/desired) for regular foot checks - Report any sxs of hypo- or hyperglycemia immediately - F/U with PCP/endocrine for ongoing mgmt/monitoring 10/28/2024 Uncontrolled type 2 diabetes mellitus with hyperglycemia (ICD-10 - E11.65) 10/27/2024 Hypertensive heart and chronic kidney disease [...] by controlling BP. Continue to f/u with PCP/Fusing Machine Tender routinely 07/05/2024 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) 04/17/2025 Dementia, unspecified, without behavioral disturbance (ICD-10 - F03.90) 10/07/2024 Unilateral primary osteoarthritis, left knee (ICD-10 - M17.12) 03/21/2025 Uncontrolled type 2 diabetes mellitus with [...] - F/U with PCP/endocrine for ongoing mgmt/monitoring 10/14/2024 Unilateral primary osteoarthritis, left knee (ICD-10 - M17.12) 03/09/2025 Uncontrolled type 2 diabetes mellitus with [...] F/U with PCP/endocrine for ongoing mgmt/monitoring 07/07/2024 Stage 3a chronic kidney disease (ICD-10 - N18.31) 09/29/2024 Unilateral primary osteoarthritis, left knee (ICD-10 - M17.12) 07/15/2024 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) 02/14/2025 Uncontrolled type 2 diabetes mellitus with [...] F/U with PCP/endocrine for ongoing mgmt/monitoring 10/21/2024 Unilateral primary osteoarthritis, left knee (ICD-10 - M17.12) 07/22/2024 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) 01/30/2025 Type 2 diabetes mellitus with diabetic neuropathy, unspecified (ICD-10 - E11.40) 07/28/2024 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) 09/22/2024 Unilateral primary osteoarthritis, left knee (ICD-10 - M17.12) 01/27/2025 Uncontrolled type 2 diabetes mellitus with [...] F/U with PCP/endocrine for ongoing mgmt/monitoring 08/02/2024 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) 10/28/2024 Dementia, unspecified, without behavioral disturbance (ICD-10 - F03.90) 2025 Type 2 diabetes mellitus with diabetic neuropathy, unspecified (ICD-10 - E11.40) 09/15/2024 Unilateral primary osteoarthritis, left knee (ICD-10 - M17.12) 08/08/2024 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) 11/04/2024 Hypertensive heart and chronic kidney disease [...] by controlling BP. Continue to f/u with PCP/Fusing Machine Tender routinely 12/16/2024 Hypertensive heart and chronic kidney [...] by controlling BP. Continue to f/u with PCP/Fusing Machine Tender routinely 08/16/2024 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) 09/08/2024 Unilateral primary osteoarthritis, left knee (ICD-10 - M17.12) 08/23/2024 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) 11/28/2024 Hypertensive heart and chronic kidney disease [...] by controlling BP. Continue to f/u with PCP/Fusing Machine Tender routinely 11/14/2024 Hypertensive heart and chronic kidney disease [...] by controlling BP. Continue to f/u with PCP/Fusing Machine Tender routinely 08/30/2024 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) 12/27/2024 Type 2 diabetes mellitus with diabetic neuropathy, unspecified (ICD-10 - E11.40) 09/01/2024 Unilateral primary osteoarthritis, left knee (ICD-10 - M17.12) 06/24/2024 Stage 3a chronic kidney disease (ICD-10 - N18.31) 01/30/2025 Uncontrolled type 2 diabetes mellitus with [...] F/U with PCP/endocrine for ongoing mgmt/monitoring 10/07/2024 Arthritis, low back (ICD-10 - M47.819) 07/15/2024 Type 2 diabetes mellitus with diabetic [...] - F/U with PCP/endocrine for ongoing mgmt/monitoring 01/27/2025 Chronic respiratory failure with hypoxia (ICD-10 - J96.11) 07/22/2024 Type 2 diabetes mellitus with diabetic [...] - F/U with PCP/endocrine for ongoing mgmt/monitoring 2025 Uncontrolled type 2 diabetes mellitus with [...] symptoms or worsening SOB to providers/PCP/pulm onologist 07/28/2024 Type 2 diabetes mellitus with diabetic [...] - F/U with PCP/endocrine for ongoing mgmt/monitoring 10/27/2024 COPD (chronic obstructive pulmonary disease) (ICD-10 [...] in symptoms or worsening SOB to providers/PCP/pulm 08/02/2024 Type 2 diabetes mellitus with diabetic [...] - F/U with PCP/endocrine for ongoing mgmt/monitoring 11/28/2024 COPD (chronic obstructive pulmonary disease) (ICD-10 [...] symptoms or worsening SOB to providers/PCP/pulm onologist 10/14/2024 Arthritis, low back (ICD-10 - M47.819) 08/08/2024 Type 2 diabetes mellitus with diabetic [...] - F/U with PCP/endocrine for ongoing mgmt/monitoring 11/14/2024 COPD (chronic obstructive pulmonary disease) (ICD-10 [...] symptoms or worsening SOB to providers/PCP/pulm onologist 08/23/2024 Type 2 diabetes mellitus with diabetic [...] F/U with PCP/endocrine for ongoing mgmt/monitoring 10/21/2024 Arthritis, low back (ICD-10 - M47.819) 11/04/2024 COPD (chronic obstructive pulmonary disease) (ICD-10 [...] in symptoms or worsening SOB to providers/PCP/pulm 10/28/2024 Major depressive disorder, recurrent episode, moderate (ICD-10 - F33.1) 09/15/2024 Arthritis, low back (ICD-10 - M47.819) 02/14/2025 Chronic respiratory failure with hypoxia (ICD-10 - J96.11) 04/17/2025 Major depressive disorder, recurrent episode, moderate (ICD-10 - F33.1) 09/29/2024 Arthritis, low back (ICD-10 - M47.819) 09/22/2024 Arthritis, low back (ICD-10 - M47.819) 09/01/2024 Arthritis, low back (ICD-10 - M47.819) 02/24/2025 Chronic respiratory failure with hypoxia (ICD-10 - J96.11) 03/21/2025 Chronic respiratory failure with hypoxia (ICD-10 - J96.11) 09/08/2024 Arthritis, low back (ICD-10 - M47.819) 03/09/2025 Chronic respiratory failure with hypoxia (ICD-10 - J96.11) 07/07/2024 COPD (chronic obstructive pulmonary disease) (ICD-10 [...] loss - Follow up with PCP and Director Safety Council routinely - Seek ED evaluation for hypoxia, [...] loss - Follow up with PCP and Director Safety Council routinely - Seek ED evaluation for hypoxia, dyspnea, chest pain 10/28/2024 RACHNA (generalized anxiety disorder) (ICD-10 - F41.1) 10/21/2024 Displaced trimalleolar fracture of right lower leg, subsequent encounter for closed fracture with routine healing (ICD-10 - S82.851D) 09/15/2024 Displaced trimalleolar fracture of right lower leg, subsequent encounter for closed fracture with routine healing (ICD-10 - S82.851D) 08/16/2024 Uncontrolled type 2 diabetes mellitus with hyperglycemia (ICD-10 - E11.65) 04/17/2025 RACHNA (generalized anxiety disorder) (ICD-10 - F41.1) 11/04/2024 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) 11/14/2024 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) 08/23/2024 Uncontrolled type 2 diabetes mellitus with hyperglycemia (ICD-10 - E11.65) 09/22/2024 Displaced trimalleolar fracture of right lower leg, subsequent encounter for closed fracture with routine healing (ICD-10 - S82.851D) 12/27/2024 Chronic respiratory failure with hypoxia (ICD-10 - J96.11) 08/08/2024 Uncontrolled type 2 diabetes mellitus with hyperglycemia (ICD-10 - E11.65) 03/21/2025 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 (ICD-10 - Z79.4) 10/14/2024 Displaced trimalleolar fracture of right lower leg, subsequent encounter for closed fracture with routine healing (ICD-10 - S82.851D) 09/08/2024 Displaced trimalleolar fracture of right lower leg, subsequent encounter for closed fracture with routine healing (ICD-10 - S82.851D) 03/09/2025 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 (ICD-10 - Z79.4) 08/02/2024 Uncontrolled type 2 diabetes mellitus with hyperglycemia (ICD-10 - E11.65) 06/24/2024 Type 2 diabetes mellitus with diabetic [...] - F/U with PCP/endocrine for ongoing mgmt/monitoring 11/28/2024 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) 10/27/2024 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) 07/28/2024 Uncontrolled type 2 diabetes mellitus with [...] F/U with PCP/endocrine for ongoing mgmt/monitoring 12/16/2024 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) 09/01/2024 Displaced trimalleolar fracture of right lower leg, subsequent encounter for closed fracture with routine healing (ICD-10 - S82.851D) 02/24/2025 shelter (current) use of insulin (ICD-10 - Z79.4) 2025 Chronic respiratory failure with hypoxia (ICD-10 - J96.11) 07/22/2024 Uncontrolled type 2 diabetes mellitus with hyperglycemia (ICD-10 - E11.65) 08/30/2024 Uncontrolled type 2 diabetes mellitus with hyperglycemia (ICD-10 - E11.65) 01/27/2025 shelter (current) use of insulin (ICD-10 - Z79.4) 07/15/2024 Uncontrolled type 2 diabetes mellitus with hyperglycemia (ICD-10 - E11.65) 02/14/2025 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 (ICD-10 - Z79.4) 10/07/2024 Displaced trimalleolar fracture of right lower leg, subsequent encounter for closed fracture with routine healing (ICD-10 - S82.851D) 09/29/2024 Displaced trimalleolar fracture of right lower leg, subsequent encounter for closed fracture with routine healing (ICD-10 - S82.851D) 01/30/2025 Chronic respiratory failure with hypoxia (ICD-10 - J96.11) 10/27/2024 Chronic kidney disease, stage 3b (ICD-10 - N18.32) 09/22/2024 Skin abrasion (ICD-10 - T14.8XXA) Acute/Improving [...] cover with bandaide Will continue to monitor 10/14/2024 Skin abrasion (ICD-10 - T14.8XXA) Acute/Improving Reviewed infection control measures, s/s if infection Continue gentle cleansing with warm soapy water, application of abx ointment bid and cover with bandaide as needed Will continue to monitor 08/30/2024 Chronic kidney disease, stage 3b (ICD-10 - N18.32) 08/23/2024 Chronic kidney disease, stage 3b (ICD-10 - N18.32) 09/15/2024 Skin abrasion (ICD-10 - T14.8XXA) Acute/Improving [...] bandaid as needed Will continue to monitor 09/29/2024 Skin abrasion (ICD-10 - T14.8XXA) Acute/Improving Reviewed infection control measures, s/s if infection Continue gentle cleansing with warm soapy water, application of abx ointment bid and cover with bandaide as needed Will continue to monitor 10/28/2024 Restless legs syndrome (RLS) (ICD-10 - G25.81) 04/17/2025 Restless legs syndrome (RLS) (ICD-10 - G25.81) 08/16/2024 Chronic kidney disease, stage 3b (ICD-10 - N18.32) 11/04/2024 Chronic kidney disease, stage 3b (ICD-10 - N18.32) 11/14/2024 Chronic kidney disease, stage 3b (ICD-10 - N18.32) 08/08/2024 Chronic kidney disease, stage 3b (ICD-10 - N18.32) 12/27/2024 shelter (current) use of insulin (ICD-10 - Z79.4) 03/21/2025 Long-term current use of injectable noninsulin antidiabetic medication (ICD-10 - Z79.85) 08/02/2024 Chronic kidney disease, stage 3b (ICD-10 - N18.32) 11/28/2024 Chronic kidney disease, stage 3b (ICD-10 - N18.32) 07/28/2024 Chronic kidney disease, stage 3b (ICD-10 - N18.32) 12/16/2024 Chronic kidney disease, stage 3b (ICD-10 - N18.32) 07/22/2024 Chronic kidney disease, stage 3b (ICD-10 - N18.32) 2025 shelter (current) use of insulin (ICD-10 - Z79.4) 03/09/2025 Long-term current use of injectable noninsulin antidiabetic medication (ICD-10 - Z79.85) 07/15/2024 Chronic kidney disease, stage 3b (ICD-10 - N18.32) 01/27/2025 Long-term current use of injectable noninsulin antidiabetic medication (ICD-10 - Z79.85) 06/24/2024 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 (ICD-10 - Z79.4) 01/30/2025 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 (ICD-10 - Z79.4) 07/07/2024 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 (ICD-10 - Z79.4) 02/14/2025 Long-term current use of injectable noninsulin antidiabetic medication (ICD-10 - Z79.85) 02/24/2025 Long-term current use of injectable noninsulin antidiabetic medication (ICD-10 - Z79.85) 04/17/2025 Extrapyramidal disorder (ICD-10 - G25.9) 09/15/2024 Major depressive disorder, recurrent episode, moderate (ICD-10 - F33.1) 03/21/2025 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) 03/09/2025 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) 09/22/2024 Major depressive disorder, recurrent episode, moderate (ICD-10 - F33.1) 02/24/2025 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) 02/14/2025 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) 09/29/2024 Major depressive disorder, recurrent episode, moderate (ICD-10 - F33.1) 01/30/2025 Long-term current use of injectable noninsulin antidiabetic medication (ICD-10 - Z79.85) 01/27/2025 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 Try fluticasone nasal spray and loratadine 10 mg daily during allergy season Reminded to call this APC with any changes or utilize [facility] during the afterhours. Seek ED evaluation for high fever, dyspnea, chest pain, severe headache 12/27/2024 Long-term current use of injectable noninsulin antidiabetic medication (ICD-10 - Z79.85) 10/14/2024 Major depressive disorder, recurrent episode, moderate (ICD-10 - F33.1) 11/04/2024 Seasonal allergic reaction (ICD-10 - J30.2) New/Acute Recommend management of COPD to avoid exacerbation Continue nebulizer treatments as prescribed by boat detailer Recommend closing windows, running air purifier or air conditioner, nasal saline, warm showers at night. Try fluticasone nasal spray and loratadine 10 mg daily during allergy season Reminded to call this APC with any changes or utilize [facility] during the afterhours. Seek ED evaluation for high fever, dyspnea, chest pain, severe headache 10/28/2024 Extrapyramidal disorder (ICD-10 - G25.9) 10/21/2024 Major depressive disorder, recurrent episode, moderate (ICD-10 - F33.1) 08/08/2024 Morbid (severe) obesity due to excess calories (ICD-10 - E66.01) Z68.41 BMI 40.0-44.9, adult Chronic/Not Controlled - Weight gain since home from [facility] - Avoid gaining additional weight and [...] Controlled - Weight gain since home from [facility] - Avoid gaining additional weight and [...] Controlled - Weight gain since home from [facility] - Avoid gaining additional weight and [...] Controlled - Weight gain since home from [facility] - Avoid gaining additional weight and [...] - Continue to monitor weights with PCP 06/24/2024 Major depressive disorder, recurrent episode, moderate (ICD-10 - F33.1) F41.1 RACHNA Chronic/Stable - Reviewed nature of anxiety and depressive sxs - Reminded to schedule f/u with Angie Mccray prescriber and to f/u with new therapist in community as referred by Angie - Reviewed nonmedical management techniques - Continue medications as prescribed - Continue outpatient F/U with psych/prescribers and involve [facility] team as appropriate - Monitor for [...] Continue outpatient F/U with psych/prescribers and involve [facility] team as appropriate - Monitor for increased sxs of depression/anxiety and report acute changes to providers - Utilize emergency services if having sxs of SI/HI/AVH as appropriate 07/28/2024 Morbid (severe) obesity due to excess [...] - Continue to monitor weights with PCP 09/08/2024 Major depressive disorder, recurrent episode, moderate (ICD-10 - F33.1) 08/16/2024 Morbid (severe) obesity due to excess calories (ICD-10 - E66.01) Z68.41 BMI 40.0-44.9, adult Chronic/Not Controlled - Weight gain since home from [facility] - Avoid gaining additional weight and [...] Controlled - Weight gain since home from [facility] - Avoid gaining additional weight and [...] disorder, recurrent episode, moderate (ICD-10 - F33.1) 07/15/2024 Morbid (severe) obesity due to excess [...] Continue to monitor weights with PCP 08/08/2024 Body mass index [BMI] 40.0-44.9, adult (ICD-10 - Z68.41) 12/27/2024 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) 08/02/2024 Body mass index [BMI] 40.0-44.9, adult (ICD-10 - Z68.41) 08/30/2024 Body mass index [BMI] 40.0-44.9, adult (ICD-10 - Z68.41) 07/28/2024 Body mass index [BMI] 40.0-44.9, adult (ICD-10 - Z68.41) 10/07/2024 Type 2 diabetes mellitus with diabetic neuropathy, unspecified (ICD-10 - E11.40) 11.65 Uncontrolled T2DM with hyperglycemia E66.01 Obesity Z79.4 LT use of insulin Z79.85 LT use of injectable non-insulin antidiabetic me Chronic/Labile Sugars are variable based on diet - Continue check BG as ordered/directed; recommended but declines CGM - Continue medication as prescribed - Novolog per SS, [facility] weekly - Recommend yearly eye exams, A1c - Recommend diabetic diet - offered referral to telehealth nurse educator - declines - Discussed potential for [...] medication as prescribed - Novolog per , [facility] weekly - Recommend yearly eye exams, A1c - Recommend diabetic diet - offered referral to telehealth nurse educator - declines - Discussed potential for end-organ damage with chronic hyperglycemia - F/U with podiatry (as needed/desired) for regular foot checks - Report any sxs of hypo- or hyperglycemia immediately - F/U with PCP/endocrine for ongoing mgmt/monitoring 07/22/2024 Body mass index [BMI] 40.0-44.9, adult (ICD-10 - Z68.41) 2025 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) 10/28/2024 ALDO on CPAP (ICD-10 - G47.33) 07/15/2024 Body mass index [BMI] 40.0-44.9, adult (ICD-10 - Z68.41) 01/27/2025 Hypertensive heart and chronic kidney disease [...] as BP remains stable - F/U with PCP/dope sprayer/n ephrologist for ongoing mgmt and monitoring 08/16/2024 Body mass index [BMI] 40.0-44.9, adult (ICD-10 - Z68.41) 01/30/2025 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) 02/14/2025 Hypertensive [...] goal <140/90, ideally <130/80 - F/U with PCP/dope sprayer/n ephrologist for ongoing mgmt and monitoring 09/22/2024 Type 2 diabetes mellitus with diabetic [...] F/U with PCP/endocrine for ongoing mgmt/monitoring 10/21/2024 Type 2 diabetes mellitus with diabetic neuropathy, unspecified (ICD-10 - E11.40) 11.65 Uncontrolled T2DM with hyperglycemia E66.01 Obesity Z79.4 LT use of insulin Z79.85 LT use of injectable non-insulin antidiabetic me Chronic/Labile Sugars are variable based on diet - Continue check BG as ordered/directed; recommended but declines CGM - Continue medication as prescribed - [facility] - Recommend yearly eye exams, A1c - Recommend diabetic diet - offered referral to telehealth nurse educator - declines - Discussed potential for end-organ damage with chronic hyperglycemia - F/U with podiatry (as needed/desired) for regular foot checks - Report any sxs of hypo- or hyperglycemia immediately - F/U with PCP/endocrine for ongoing mgmt/monitoring 07/07/2024 Mixed incontinence (ICD-10 - N39.46) 02/24/2025 Hypertensive heart and chronic kidney disease [...] goal <140/90, ideally <130/80 - F/U with PCP/dope sprayer/n ephrologist for ongoing mgmt and monitoring 06/24/2024 Mixed incontinence (ICD-10 - N39.46) 03/09/2025 Hypertensive heart and chronic kidney disease [...] goal <140/90, ideally <130/80 - F/U with PCP/dope sprayer/n ephrologist for ongoing mgmt and monitoring 10/14/2024 Type 2 diabetes mellitus with diabetic [...] Recommend diabetic diet - offered referral to telehealth nurse educator - declines - Discussed potential for end-organ damage with chronic hyperglycemia - F/U with podiatry (as needed/desired) for regular foot checks - Report any sxs of hypo- or hyperglycemia immediately - F/U with PCP/endocrine for ongoing mgmt/monitoring 03/21/2025 Hypertensive heart and chronic kidney disease [...] goal <140/90, ideally <130/80 - F/U with PCP/dope sprayer/n ephrologist for ongoing mgmt and monitoring 04/17/2025 ALDO on CPAP (ICD-10 - G47.33) 09/15/2024 Type 2 diabetes mellitus with diabetic [...] [BMI] 40.0-44.9, adult (ICD-10 - Z68.41) 08/16/2024 shelter (current) use of insulin (ICD-10 - Z79.4) 10/28/2024 Other chronic pain (ICD-10 - G89.29) 10/21/2024 Uncontrolled type 2 diabetes mellitus with hyperglycemia (ICD-10 - E11.65) 10/14/2024 Uncontrolled type 2 diabetes mellitus with hyperglycemia (ICD-10 - E11.65) 08/23/2024 shelter (current) use of insulin (ICD-10 - Z79.4) 08/08/2024 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 (ICD-10 - Z79.4) 08/02/2024 shelter (current) use of insulin (ICD-10 - Z79.4) 07/28/2024 shelter (current) use of insulin (ICD-10 - Z79.4) 07/22/2024 shelter (current) use of insulin (ICD-10 - Z79.4) 2025 Hypertensive heart and chronic kidney disease [...] as BP remains stable - F/U with PCP/dope sprayer/n ephrologist for ongoing mgmt and monitoring 07/15/2024 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 (ICD-10 - Z79.4) 01/27/2025 Mixed incontinence (ICD-10 - N39.46) 01/30/2025 Hypertensive heart and chronic kidney disease [...] goal <140/90, ideally <130/80 - F/U with PCP/dope sprayer/n ephrologist for ongoing mgmt and monitoring 02/14/2025 Chronic kidney disease, stage 4 (severe) [...] F/U with PCP/nephro for ongoing monitoring/mgmt 07/07/2024 Recurrent UTI (urinary tract infection) (ICD-10 [...] and will continue to monitor s/sx UTIs 02/24/2025 Chronic kidney disease, stage 4 (severe) [...] - F/U with PCP/nephro for ongoing monitoring/mgmt 03/09/2025 Chronic kidney disease, stage 4 (severe) [...] 04/17/2025 Other chronic pain (ICD-10 - G89.29) 06/24/2024 Recurrent UTI (urinary tract infection) (ICD-10 [...] and will continue to monitor s/sx UTIs 09/22/2024 Uncontrolled type 2 diabetes mellitus with hyperglycemia (ICD-10 - E11.65) 10/07/2024 Uncontrolled type 2 diabetes mellitus with hyperglycemia (ICD-10 - E11.65) 09/29/2024 Uncontrolled type 2 diabetes mellitus with hyperglycemia (ICD-10 - E11.65) 09/15/2024 Uncontrolled type 2 diabetes mellitus with hyperglycemia (ICD-10 - E11.65) 08/30/2024 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 (ICD-10 - Z79.4) 07/07/2024 RACHNA (generalized anxiety disorder) (ICD-10 - F41.1) 2025 Chronic kidney disease, stage 3b (ICD-10 - N18.32) 09/22/2024 Hypertensive heart and chronic kidney disease [...] by controlling BP. Continue to f/u with PCP/Fusing Machine Tender routinely 08/23/2024 Long-term current use of injectable noninsulin antidiabetic medication (ICD-10 - Z79.85) 06/24/2024 RACHNA (generalized anxiety disorder) (ICD-10 - F41.1) 07/15/2024 Long-term current use of injectable noninsulin antidiabetic medication (ICD-10 - Z79.85) 10/14/2024 Hypertensive heart and chronic kidney disease [...] by controlling BP. 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 Continue to f/u with PCP/Fusing Machine Tender routinely 01/27/2025 Chronic kidney disease, stage 4 (severe) [...] F/U with PCP/nephro for ongoing monitoring/mgmt 08/02/2024 Long-term current use of injectable noninsulin antidiabetic medication (ICD-10 - Z79.85) 10/21/2024 Hypertensive heart and chronic kidney disease [...] by controlling BP. Continue to f/u with PCP/Fusing Machine Tender routinely 01/30/2025 Mixed incontinence (ICD-10 - N39.46) 08/16/2024 Long-term current use of injectable noninsulin antidiabetic medication (ICD-10 - Z79.85) 08/08/2024 Long-term current use of injectable noninsulin antidiabetic medication (ICD-10 - Z79.85) 09/15/2024 Hypertensive heart and chronic kidney disease [...] by controlling BP. Continue to f/u with PCP/Fusing Machine Tender routinely 08/30/2024 Long-term current use of injectable noninsulin antidiabetic medication (ICD-10 - Z79.85) 07/07/2024 ALDO on CPAP (ICD-10 - G47.33) [...] (CPAP) can improve cardiovascular outcomes as well. 09/22/2024 Chronic diastolic (congestive) heart failure (ICD-10 - I50.32) 01/30/2025 Chronic kidney disease, stage 4 (severe) [...] F/U with PCP/nephro for ongoing monitoring/mgmt 10/28/2024 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 kidney disease, or unspecified chronic kidney disease (ICD-10 - I13.0) 10/07/2024 Chronic diastolic (congestive) heart failure (ICD-10 - I50.32) 08/16/2024 Hypertensive heart and chronic kidney disease [...] diastolic (congestive) heart failure (ICD-10 - I50.32) 08/30/2024 Hypertensive heart and chronic kidney disease [...] - F/U with PCP/nephro for ongoing monitoring/mgmt 10/21/2024 Chronic diastolic (congestive) heart failure (ICD-10 - I50.32) 08/02/2024 Hypertensive heart and chronic kidney disease [...] - F/U with PCP/nephro for ongoing monitoring/mgmt 09/29/2024 Chronic diastolic (congestive) heart failure (ICD-10 - I50.32) 04/17/2025 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 kidney disease, or unspecified chronic kidney disease (ICD-10 - I13.0) 07/22/2024 Hypertensive heart and chronic kidney disease [...] - F/U with PCP/nephro for ongoing monitoring/mgmt 10/14/2024 Chronic diastolic (congestive) heart failure (ICD-10 - I50.32) 07/15/2024 Hypertensive heart and chronic kidney disease [...] - F/U with PCP/nephro for ongoing monitoring/mgmt 06/24/2024 ALDO on CPAP (ICD-10 - G47.33) [...] (CPAP) can improve cardiovascular outcomes as well. 08/23/2024 Hypertensive heart and chronic kidney disease [...] - F/U with PCP/nephro for ongoing monitoring/mgmt 2025 Vitamin D deficiency, unspecified (ICD-10 - E55.9) Chronic/Stable Continue supplementaton with D3 f/u with PCP as scheduled Dietary recommendations to increase vit D Will continue to monitor 08/08/2024 Other chronic pain (ICD-10 - G89.29) [...] joints - Will start outpatient PT at [facility] by next week. - Use [...] PLACE ORDER FOR HOME PEDAL DEVICE THROUGH [facility] 09/22/2024 COPD (chronic obstructive pulmonary disease) (ICD-10 [...] joints - Will start outpatient PT at [facility] by next week. 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) 08/08/2024 Unilateral primary osteoarthritis, left knee (ICD-10 - M17.12) 09/15/2024 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) 10/14/2024 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) 10/21/2024 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) 08/30/2024 Unilateral primary osteoarthritis, left knee (ICD-10 - M17.12) 09/22/2024 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) 06/24/2024 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 Stenosis of lacrimal duct Chronic/Stable Advised to report any fever, eye pain, acute vision changes, purulent drainage, malcolm orbital or conjuctival erythema F/u with opthalmologist as planned 09/29/2024 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) 08/16/2024 Unilateral primary osteoarthritis, left knee (ICD-10 - M17.12) 08/23/2024 Arthritis, low back (ICD-10 - M47.819) 04/17/2025 COPD (chronic obstructive pulmonary disease) (ICD-10 - J44.9) 10/14/2024 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 (ICD-10 - Z79.4) 06/24/2024 Long-term current use of injectable noninsulin antidiabetic medication (ICD-10 - Z79.85) 08/16/2024 Arthritis, low back (ICD-10 - M47.819) 09/29/2024 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 (ICD-10 - Z79.4) 09/22/2024 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 (ICD-10 - Z79.4) 08/30/2024 Arthritis, low back (ICD-10 - M47.819) 10/07/2024 shelter (current) use of insulin (ICD-10 - Z79.4) 10/21/2024 shelter (current) use of insulin (ICD-10 - Z79.4) 08/08/2024 Arthritis, low back (ICD-10 - M47.819) 10/28/2024 COPD (chronic obstructive pulmonary disease) (ICD-10 - J44.9) 09/15/2024 shelter (current) use of insulin (ICD-10 - Z79.4) 07/07/2024 Long-term current use of injectable noninsulin antidiabetic medication (ICD-10 - Z79.85) 09/22/2024 Long-term current use of injectable noninsulin antidiabetic medication (ICD-10 - Z79.85) 06/24/2024 Restless legs syndrome (RLS) (ICD-10 - G25.81) Chronic/Stable - continue same meds - counseled on getting up and moving around helps the unpleasant feeling temporarily go away, physical exercise, relaxation techniques, massage - f/u PCP prn 04/17/2025 Chronic respiratory failure with hypoxia (ICD-10 - J96.11) 09/15/2024 Long-term current use of injectable noninsulin antidiabetic medication (ICD-10 - Z79.85) 07/07/2024 Restless legs syndrome (RLS) (ICD-10 - G25.81) Chronic/Stable - continue same meds - counseled on getting up and moving around helps the unpleasant feeling temporarily go away, physical exercise, relaxation techniques, massage - f/u PCP prn 08/23/2024 Displaced trimalleolar fracture of right lower leg, subsequent encounter for closed fracture with routine healing (ICD-10 - S82.851D) 08/30/2024 Displaced trimalleolar fracture of right lower leg, subsequent encounter for closed fracture with routine healing (ICD-10 - S82.851D) 09/29/2024 Long-term current use of injectable noninsulin antidiabetic medication (ICD-10 - Z79.85) 10/14/2024 Long-term current use of injectable noninsulin antidiabetic medication (ICD-10 - Z79.85) 08/08/2024 Displaced trimalleolar fracture of right lower leg, subsequent encounter for closed fracture with routine healing (ICD-10 - S82.851D) 08/16/2024 Displaced trimalleolar fracture of right lower leg, subsequent encounter for closed fracture with routine healing (ICD-10 - S82.851D) 10/07/2024 Long-term current use of injectable noninsulin antidiabetic medication (ICD-10 - Z79.85) 10/21/2024 Long-term current use of injectable noninsulin antidiabetic medication (ICD-10 - Z79.85) 10/28/2024 Chronic respiratory failure with hypoxia (ICD-10 - J96.11) 09/22/2024 Chronic kidney disease, stage 3b (ICD-10 - N18.32) 08/30/2024 Skin abrasion (ICD-10 - T14.8XXA) Acute/Improving Reviewed infection control measures, s/s if infection Recommended gentle cleansing with warm soapy water, application of abx ointment bid and cover with bandaide Will continue to monitor 09/29/2024 Chronic kidney disease, stage 3b (ICD-10 - N18.32) 04/17/2025 Unilateral primary osteoarthritis, left knee (ICD-10 - M17.12) 10/07/2024 Chronic kidney disease, stage 3b (ICD-10 - N18.32) 10/14/2024 Chronic kidney disease, stage 3b (ICD-10 - N18.32) 06/24/2024 Polymyalgia rheumatica (ICD-10 - M35.3) 07/07/2024 Polymyalgia rheumatica (ICD-10 - M35.3) 10/21/2024 Chronic kidney disease, stage 3b (ICD-10 - N18.32) 10/28/2024 Unilateral primary osteoarthritis, left knee (ICD-10 - M17.12) 09/15/2024 Chronic kidney disease, stage 3b (ICD-10 - N18.32) 09/22/2024 Morbid (severe) obesity due to excess calories (ICD-10 - E66.01) 09/29/2024 Morbid (severe) obesity due to excess calories (ICD-10 - E66.01) 04/17/2025 Polymyalgia rheumatica (ICD-10 - M35.3) 10/07/2024 Morbid (severe) obesity due to excess calories (ICD-10 - E66.01) 10/14/2024 Morbid (severe) obesity due to excess calories (ICD-10 - E66.01) 06/24/2024 Uncontrolled type 2 diabetes mellitus with hyperglycemia (ICD-10 - E11.65) 07/07/2024 Uncontrolled type 2 diabetes mellitus with hyperglycemia (ICD-10 - E11.65) 10/21/2024 Morbid (severe) obesity due to excess calories (ICD-10 - E66.01) 09/15/2024 Morbid (severe) obesity due to excess calories (ICD-10 - E66.01) 10/28/2024 Polymyalgia rheumatica (ICD-10 - M35.3) 04/17/2025 Arthritis, low back (ICD-10 - M47.819) 06/24/2024 Extrapyramidal disorder (ICD-10 - G25.9) 10/28/2024 Arthritis, low back (ICD-10 - M47.819) 07/07/2024 Extrapyramidal disorder (ICD-10 - G25.9) 10/28/2024 Chronic kidney disease, stage 3b (ICD-10 - N18.32) 04/17/2025 Recurrent UTI (urinary tract infection) (ICD-10 - N39.0) 06/24/2024 Panlobular emphysema (ICD-10 - J43.1) 07/07/2024 Panlobular emphysema (ICD-10 - J43.1) 10/28/2024 Recurrent UTI (urinary tract infection) (ICD-10 - N39.0) 04/17/2025 Mixed incontinence (ICD-10 - N39.46) 06/24/2024 Chronic respiratory failure with hypoxia (ICD-10 - J96.11) 07/07/2024 Chronic respiratory failure with hypoxia (ICD-10 - J96.11) 10/28/2024 Mixed incontinence (ICD-10 - N39.46) 04/17/2025 Displaced trimalleolar fracture of right lower leg, subsequent encounter for closed fracture with routine healing (ICD-10 - S82.851D) 06/24/2024 Chronic kidney disease, stage 3b (ICD-10 - N18.32) 07/07/2024 Chronic kidney disease, stage 3b (ICD-10 - N18.32) 10/28/2024 Displaced trimalleolar fracture of right lower leg, subsequent encounter for closed fracture with routine healing (ICD-10 - S82.851D) 04/17/2025 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 (ICD-10 - Z79.4) 06/24/2024 Dementia, unspecified, without behavioral disturbance (ICD-10 - F03.90) Chronic/Stable - Mild memory issue - member is a/o during visit; patient and family deny confusion and wandering - member requires assistance, cueing for ADL's, PIPE TESTER for IADL's - f/u PCP prn 07/07/2024 Dementia, unspecified, without behavioral disturbance (ICD-10 - F03.90) Chronic/Stable - Mild memory issue - member is a/o during visit; patient and family deny confusion and wandering - member requires assistance, cueing for ADL's, PIPE TESTER for IADL's - f/u PCP prn 04/17/2025 Long-term current use of injectable noninsulin antidiabetic medication (ICD-10 - Z79.85) 07/07/2024 Unilateral primary osteoarthritis, left knee (ICD-10 - M17.12) 06/24/2024 Unilateral primary osteoarthritis, left knee (ICD-10 - M17.12) 10/28/2024 shelter (current) use of insulin (ICD-10 - Z79.4) 07/07/2024 Displaced trimalleolar fracture of right lower leg, subsequent encounter for closed fracture with routine healing (ICD-10 - S82.851D) Subacute/Improving Appropriate healing per Ortho - continue up routinely Wearing a walking boot, ambulating with assistance and use of walker Avoid falls, report changes in pain or mobility Continue home PT - [facility] Continue tylenol as needed 06/24/2024 Displaced trimalleolar fracture of right lower leg, subsequent encounter for closed fracture with routine healing (ICD-10 - S82.851D) Subacute/Improving Appropriate healing per Ortho - continue up routinely Wearing a walking boot, ambulating with assistance and use of walker Avoid falls, report changes in pain or mobility Continue home PT - [facility] Continue tylenol as needed 04/17/2025 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) 10/28/2024 Long-term current use of injectable noninsulin antidiabetic medication (ICD-10 - Z79.85) 07/07/2024 Arthritis, low back (ICD-10 - M47.819) 10/28/2024 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) 06/24/2024 Arthritis, low back (ICD-10 - M47.819) 04/17/2025 Morbid (severe) obesity due to excess calories (ICD-10 - E66.01) 07/07/2024 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) 10/28/2024 Morbid (severe) obesity due to excess calories (ICD-10 - E66.01) 04/17/2025 Body mass index [BMI] 40.0-44.9, adult (ICD-10 - Z68.41) 06/24/2024 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 Reviewed COPD Zones, HTN/HF Zones and when to seek urgent care versus ED evaluation. Patient verbalizes understanding. 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 Patient verbalizes understanding. 08/08/2024 Other Reminded of [...] seek UC versus present to the ED. 10/14/2024 Other Of Note: sukhdev reyes is taking all medications as prescribed although they appear unknow under the medication tab because meds were reconciled in a future note. 10/21/2024 Other Of Note: Medications are reconciled this visit. They appear unknown in the medication section of this note because they were verified in a future note. 09/15/2024 Other Provided contact info the this APC, the [facility] Member services/CRU line and [facility]. REviewed HF, COPD, DM zones and sick day plans. Reviewed when to call PCP/APC versus when to request UC [facility] versus when to seek ED evaluation. Patient verbalizes understanding. 11/14/2024 Other Plan Of Treatment No Information Insurance Providers Payer Name Payer Address Payer Phone Subscriber Number Group Number Insured Name Patient Relationship to Insured Coverage Start Date Coverage End Date [facility] [place] [facility] ([id number]) [address] [facility] [address] [place] [address] [id number] Ayush Mine Self - patient is the insured 3 9 Medical (General) History Medical History History ICD Code Chest pain (resolved 09/26/2023) Extrapyramidal disorder G25.9 Major depressive disorder, recurrent epi sode, moderate F33.1 Urinary incontinence, unspecified type R 32 Acute cystitis without hematuria N30.00 COPD exacerbation (resolved 07/14/2024) undefined COVID-19 virus infection (resolved 07/14) Surgical History Surgery Date(Month/Year[place] [facility] [place]IF 04/2024 Hospitalization History Reason Date(Month/Year) [facility] ED - Hyperglycemia 2024 [facility] ED- COPD exac, ?UTI 12/23 [facility] [place] 06/26/2024 [facility] for STR following ankle fracture 05/2024-06/22/2024 [facility] Right bi-malleolar fracture 04/2024 [facility] for dysuria left AMA d/t long wait time 04/03/20[place] [facility]13[place] [facility] [place] chest and back pain (ACS ruled ou t) 12/04/23 [facility] and [place] pain (ACS ruled ou t) 12/02/23 [facility] [place] Sepsis (ruled out) 11/28- [facility]- COPD exac, UTI 11/17-04/05
--- OUTSIDE RECORDS SUMMARY | 2025-05-24 14:17 | XMS_ITS | Data Portability ---
Author Organization [place] - [facility] Address [address] [place] [address] Care Team Providers Care Safety Compliance Specialist Name Role Phone IVAN DUMONT Primary Care Provider [phone] Assessment No assessment recorded. Plan of Treatment [...] 2-3 TIMES/WEEK DURATION: 6-8 WEEKS 2023 [facility], [address] [place] [address], [address], 5 18:51:39 Procedures None recorded. Surgeries None recorded. Imaging XR, ankle, 3 or more view - duplicate 2024 025 [facility], [address], [place], [address], 5 16:00:50 XR, ankle, 3 or more view - 304 right ankle 3v 2023 0[facility], [address], [place], [address], 5 18:51:39 XR, ankle, 3 or more view - room 308 right ankle post op 3v ankle NWB 2023 024 [facility], [address], [address], [place], [address], 4 12:27:15 XR, ankle, 3 or more view - room 30 right ankle post op ROOM 307 2023 024 [facility], [address], [address], [place], [address], 4 14:02:27 Medication Orders gabapentin 300 mg capsule 2024 025 [id number], [address] , [place], [address], 5 15:14:00 Patient TargetsNo targets recorded. Patient [...] WEEKS Referring Physician: Ivy Carpenter, Orthopedic Surgery, [id number] Encounter Date: 07/12/2024 Results Created Date Observation Date Name Description Value Unit Range Abnormal Flag Note LastModifiedBy Organization Detail LastModifiedTime 04/28/20 24 04/28/2024 XR, ankle , 3 or more view [email or web address] ?Encry pted=s hAaTro YD8dLq bEUv6g %2BXZw aYqtaq 0bqfl% 2Fg9IQ a4ajBk vP9nXo QUaueC m3YtLR FvZlgJ JJ8mAn HZtai3 3b8320 AC0Kqa 3qNVaK mKiQtr MwF INTERFACE [facility] [address], [place], [address], 04/28/2024 15:09:57 04/28/20 24 04/28/2024 XR, ankle , 3 or more view [email or web address] ?Encry pted=s hAaTro YD8dLq bEUv6g %2BXZw aYqtaq 0bqfl% 2Fg9IQ a4ajBk vP9nXo QUaueC m3YtLR FvZl [facility] HZtai3 7b5594 AC0Kqa 3qNVaK mKiQtr MwF INTERFACE [facility] [address], [place], [address], 04/28/2024 15:09:59 05/31/20 24 05/31/2024 XR, ankle , 3 or more view [email or web address] ?Encry pted=s hAaTro YD8dLq bEUv6g %2BXZw aYqtaq 0bqfl% 2Fg9IQ a4ajBk vP9nXo QUaueC m3YtLR FvZl [facility] HZtai3 1m8882 AC0Kqa X2EVqq nKiQtr MwF INTERFACE [facility] [address] [facility] [address], [place], [address], 05/31/2024 10:39:38 05/31/20 24 05/31/2024 XR, ankle , 3 or more view [email or web address] ?Encry pted=s hAaTro YD8dLq bEUv6g %2BXZw aYqtaq 0bqfl% 2Fg9IQ a4ajBk vP9nXo QUaueC m3YtLR FvZlgJ JJ8mAn HZtai3 9u4394 AC0Kqa X2EVqq nKiQtr MwF INTERFACE [facility] [address], [place], [address], 05/31/2024 10:39:40 07/12/20 24 07/12/2024 XR, ankle , 3 or more view [email or web address] ?Encry pted=s hAaTro YD8dLq bEUv6g %2BXZw aYqtaq 0bqfl% 2Fg9IQ a4ajBk vP9nXo QUaueC m3YtLR FvZlgJ JJ8mAn HZtai3 8w6181 AC0Kqb nWBVaS mKiQtr MwF INTERFACE [facility] [address], [place], [address], 07/12/2024 14:00:39 07/12/20 24 07/12/2024 XR, ankle , 3 or more view [email or web address] ?Encry pted=s hAaTro YD8dLq bEUv6g %2BXZw aYqtaq 0bqfl% 2Fg9IQ a4ajBk vP9nXo QUaueC m3YtLR FvZlgJ JJ8mAn HZtai3 5q0990 AC0Kqb nWBVaS mKiQtr MwF INTERFACE [facility] [address], [place], [address], 07/12/2024 14:00:42 08/30/19 25 08/30/2024 XR, ankle , 3 or more view [email or web address] ?Encry pted=s hAaTro YD8dLq bEUv6g %2BXZw aYqtaq 0bqfl% 2Fg9IQ a4ajBk vP9nXo QUaueC m3YtLR FvZlgJ JJ8mAn HZtai3 4u4721 AC0Kqb X2CVqW gKiQtr MwF INTERFACE [facility] [address], [place], [address], 08/30/2024 14:13:09 08/30/19 25 08/30/2024 XR, ankle , 3 or more view [email or web address] ?Encry pted=s Teddy YD8dLq bEUv6g %2BXZw aYqtaq 0bqfl% 2Fg9IQ a4ajBk vP9nXo QUaueC m3YtLR FvZlgJ JJ8mAn HZtai3 9k2708 AC0Kqb X2CVqW gKiQtr MwF INTERFACE [facility] [address] [facility] [address], [place], [address], 08/30/2024 14:13:12 Result Notes Documentation Provider Name and Address Organization Details Recorded Time Xr, Ankle, 3 Or More View : [email or web address] Encrypted=ygTfNxdRN6xLpuH Uv6g%4ISGofWkpca1suns%2Fg 3YXm1etKufX2iEbZWsdfZv8Ob XCLsDeePMU6vHtMWvpw94c334 1FJ2Amv7dENgNfDdHtbOmA Not Available [facility] 04/28/2024 15:09: 57 Xr, Ankle, 3 Or More View : [email or web address] Encrypted=voXrFrgPF7kEikS Uv6g%7KLBesKvbnm4edzf%2Fg 5XXr7fjZkeZ4tAzVJqwbUh4Fr USYaGhrMSA6yLbYXdgc80d720 0RN5Qyt8lBUwWpUbQxuEjH Not Available [facility] 04/28/2024 15:10: 00 Xr, Ankle, 3 Or More View : [email or web address] Encrypted=plYvEcjWA4qXdcX Uv6g%1GOUiuHowbw0envm%2Fg 4PHe5tyPxbB3jXlLDoyjVn5Ce WWHyWmkPJX9nZcINbwe53f553 4XC8QlvO3MKyhgXvPbsUiQ Not Available [facility] 05/31/2024 10:39: 39 Xr, Ankle, 3 Or More View : [email or web address] Encrypted=gcRkGbkFU3zTafK Uv6g%2VTVpfYtanw1yzgl%2Fg 6BKe1kiYnkO4pKcGIbvdVk0Yr AGYeMzpSWV7nIaRBvkn87q311 7PB2XkwM9YGblsJvXveWlX Not Available [facility] 05/31/2024 10:39: 41 Xr, Ankle, 3 Or More View : [email or web address] Encrypted=kzToJouHV2dPbmK Uv6g%5NZUzgUgxkn7qhlf%2Fg 2GYc5gcYpgZ0mLjCYzetBb1Iz HXLzYuoOUR4cWoCYmzw60m425 4HS1MaedZNJjKtKvZzyEdB Not Available [facility] 07/12/2024 14:00: 40 Xr, Ankle, 3 Or More View : [email or web address] Encrypted=nnDlRblVD9cLpmQ Uv6g%5QHJywVqkqq7xzeg%2Fg 1EVi1szWhzP2jYkGRkbpHf5Pw CWMvVklIQU6nViVYikk57p707 3OM8KmraPLQaIqVgFldRxC Not Available [facility] 07/12/2024 14:00: 42 Xr, Ankle, 3 Or More View : [email or web address] Encrypted=oyTnKsaJN4jZnzT Uv6g%8OYUpcNfkqy9vkpl%2Fg 1TQd8mjNfoT6wXtEByfpOc6Ka WXHfXzmQNK8aFcDKwnc10o302 1TJ8DrwK1NPhVyKbMuzZpA Not Available [facility] 08/30/2024 14:13: 11 Xr, Ankle, 3 Or More View : [email or web address] Encrypted=gdEeVogND8uHuoO Uv6g%6IEExuFnmsh5dmte%2Fg 0QNy9ugUgnV1bAzZXnixVl2Gg CMUxUuqPMA5uAuORoky91w979 8CO5BooQ6LKfKkFrXblBoM Not Available [facility] 08/30/2024 14:13: 12 Medical Equipment None Reported. Allergies Allergen ID Allergen Name Allergen Category Reaction Reaction Severity Criticality Documentation Date Start Date Code Code System Note Provider Name and Address Organization Details Recorded Time 424144 adhesive tape environme nt,medica tion Not available Not available Not available 04/28/2024 SUMAYA asher [facility] 14:40:58 287857 Tigan medicatio n Not available Not available Not available 04/28/2024 31537 8 RxNorm SUMAYA asher [facility] 14:41:23 Medications Name Sig Start Date Stop [...] Not Available Not Available No t Available [employer] Ultra Test strips USE TO CHECK BLOOD [...] Updated DateTime 08/30/2024 152.4 cm LOPEZ EUCEDA [facility] 08/30/2024 14:05:08 Date Recorded Body height Provider Name an d Address Organization Details Last Updated DateTime 04/28/2024 152.4 cm SUMAYA LAND [facility] 04/28/2024 14:40:26 Date Recorded Body height Provider Name an d Address Organization Details Last Updated DateTime 05/31/2024 152.4 cm Milagro haile [facility] 05/31/2024 10:42:48 Date Recorded Body height Provider Name an d Address Organization Details Last Updated DateTime 07/12/2024 152.4 cm Kelly winters [facility] 07/12/2024 13:48:04 Social History Question Answer Notes LastModified by Organizat ion Details LastModified Time Tobacco Smoking Status Unknown If Ever Smoked SUMAYA LAND null, [facility] 04/28/2024 14:40:37 What Is Your Relationship Status? [...] ICD10 Code Diagnosis IMO Codes Diagnosis Note [id number] ADAN Simpsone [address] [place] [address] 04/28/2024 14:06:43 05/23/2024 14:02:27 Closed trimalleolar fracture 7047453 S82.851D [id number] Postoperative visit 1836 60269 Z48.89 [id number] ADAN Simpsone [address] [place] [address] 05/31/2024 09:30:42 06/29/2024 12:27:15 Closed trimalleolar fracture 4950261 S82.851D [id number] Postoperative visit 1836 55570 Z48.89 [id number] ADAN Simpsone [address] [place] [address] 07/12/2024 13:17:43 07/26/2024 18:51:39 Postoperative visit 796409958 Z48.89 [id number] Closed tri malleolar fracture 6533188 S82.851D 10860004 [id number] Ivy Carpenter CNP [facility] [address] [place] [address] 08/30/2024 13:52:29 09/15/2024 16:00:50 Postoperative visit 149349298 Z48.89 [id number] Closed tri malleolar fracture 2148312 S82.851D [id number] Health Concerns Section Related Observation LastModified by Organization Detai ls LastModified Time None Recorded Concern Status LastModified by Organization Details LastModified Time None Recorded Advance Directives Directive None Recorded Payers Insurance Date Sequence Insurance Name Policy Number Policy Wesley Covered Member ID Wesley Member ID Guarantor Name 03/17/2025 1 [facility] - DOS ON OR AFTER 2022 - DUAL ELIGIBLE - CARE HOME OPTIONS AND ONE CARE (MEDICARE REPLACEMENT/ADV ANTAGE - HMO) Mine Peacock [id number] Mine Peacock Notes Date Note Type Note [...] by family. She is currently staying at [facility] for rehab. She reports pain is tolerable. [...] X-rays ordered, obtained, and independently reviewed at [facility] today. 3 views right ankle reveal surgical [...] vitamins. FOLLOW UP: 4 weeks Speech recognition spot washer software was used to create portions of this document. An attempt at proofreading has been made to minimize errors. Please call for corrections. Ivy Carpenter, OPTOMETRIC AIDE [address] [facility] [address], [place], [address], [facility] 04/28/2024 15:40:53 05/31/2024 text/html I am seeing the patient today under the supervision of Dr. Villela who was available but who did not see the patient. Surgery: ORIF bimalleolar component of trimalleolar fracture right ankleDate of surgery: 04/10/2024Surgeon: Dr. Villela HPI: 74-year-old woman presents status post above surgery. Patient presents in wheelchair accompanied by family. She is currently staying at [facility] for rehab. She reports pain is tolerable. [...] X-rays ordered, obtained, and independently reviewed at [facility] today. 3 views right ankle reveal surgical [...] narcotics. FOLLOW UP: 6 weeks Speech recognition spot washer software was used to create portions of this document. An attempt at proofreading has been made to minimize errors. Please call for corrections. Ivy Carpenter, OPTOMETRIC AIDE [address] [facility] [address], [place], [address], [facility] 05/31/2024 12:12:57 07/12/2024 text/html [...] Since last encounter, she was discharged from [facility] rehab. She reports pain is tolerable. They [...] X-rays ordered, obtained, and independently reviewed at [facility] today. 3 views right ankle reveal surgical [...] therapy FOLLOW UP: 8 weeks Speech recognition spot washer software was used to create portions of this document. An attempt at proofreading has been made to minimize errors. Please call for corrections. Ivy Carpenter, OPTOMETRIC AIDE [address], [place], [address], [facility] 07/12/2024 15:21:15 08/30/2024 text/html [...] X-rays ordered, obtained, and independently reviewed at [facility] today. 3 views right ankle reveal surgical [...] yet. FOLLOW UP: 3 months Speech recognition spot washer software was used to create portions of this document. An attempt at proofreading has been made to minimize errors. Please call for corrections. Ivy Carpenter, OPTOMETRIC AIDE [address], [place], [address], [facility] 08/30/2024 17:03:12 OBGyn Episode No OBEpisode recorded.
--- OUTSIDE RECORDS SUMMARY | 2025-05-24 14:17 | XMS_ITS | Patient Health Record ---
Author Organization [facility] Address [address] [place] [address] Care Team Providers Care Concrete Pourer Name Role Phone Chris BROWNE, Asma Primary Care Provider Ellis Cheng Unavailable [phone] Gladys BROWNE, Wallace Unavailable Unavailable Allergies Allergen (clinical drug ingredient) Drug/Non Drug Allergy documented on EMR Reaction Allergy Type Onset Date Status trimethobenzamide Tigan Unknown Drug Allergy Active Reason For Referral No Information Problems Problem Type SNOMED Code ICD Code Onset Dates Problem Status W/U Status Risk Notes Problem Ulcerative colitis (07732818) Ulcerative colitis (K51.90) Active confirmed Plan Of Treatment Next Appt Details Provider Name:Ellis Sheikh , 09/19/2025 10:30:00 AM, [address], [address], [place], [address], Insurance Providers Payer Name Payer Address Payer Phone Subscriber Number Group Number Insured Name Patient Relationship to Insured Coverage Start Date Coverage End Date [facility] [address] Attn Claims EDMUND Short [id number] DESMOND BROOKE Self - patient is the insured Medical (General) History Medical History History ICD Code colonoscopy 11-09-2006 gerd Surgical History Surgery Date(Month/Year) cholecystectomy hysterectomy with oophorectomy D&C and tubal ligation
--- OUTSIDE RECORDS SUMMARY | 2025-05-24 14:18 | XMS_ITS | Patient Health Record ---
Author Organization [facility] denise Corinne Address [address] [facility] [address] Care Team Providers Care Modern Languages Professor Name Role Phone Chris BROWNE, [facility] Primary Care Provider Nik Horner Unavailable [phone] Allergies No Known Allergies Results Component Value [...] Problem Acquired hammer toe of right foot (4405925135279062 ) Other hammer toe(s) (acquired), right foot (M20.41) Active confirmed Response to treatment, Improvemen t Problem Acquired hammer toe of left foot (4758916810326092 ) Other hammer toe(s) (acquired), left foot (M20.42) Active confirmed Response to treatment, Improvemen t Problem Polyneuropathy due to type 2 diabetes mellitus (013708696) Type 2 diabetes mellitus with diabetic polyneuropathy (E11.42) Active confirmed Vital Signs Blood pressure diastolic 65 mm Hg 04/04/2025 Height 5 ft in 04/04/2025 Blood pressure systolic 128 mm Hg 04/04/2025 Weight 198 lbs 04/04/2025 BMI 38.67 kg/m2 04/04/2025 Procedures Procedure Date Ordered Date Performed Result Body Sit e 46644-RGZCMLF NAIL, 6 OR MORE 08/19/2024 N/A 64511-BDAW SKIN LESIONS, OVER 4 08/19/2024 N/A 22629-SLTTYXQ NAIL, 6 OR MORE 11/15/2024 N/A 11420-QGNO SKIN LESIONS, OVER 4 11/15/2024 N/A 59112-LWNOOHZ NAIL, 6 OR MORE 04/04/2025 N/A 14524-NZIT SKIN LESIONS, OVER 4 04/04/2025 N/A Encounters Encounter Location Date Provider Diagnosis [facility] [place] [address] [place] [address] 08/19/2024 Nik Hernandez Type 2 diabetes mellitus with diabetic polyneuropathy E11.42 ; Tinea unguium B35.1 ; Other hammer toe(s) (acquired), right foot M20.41 and Other hammer toe(s) (acquired), left foot M20.[address] [address] 11/15/2024 Nik Hernandez Type 2 diabetes mellitus with diabetic polyneuropathy E11.42 and Tinea unguium B35.[address] [address] 04/04/2025 Nikelbert Hernandez Type 2 diabetes mellitus with diabetic polyneuropathy E11.42 ; Tinea unguium B35.1 ; Other hammer toe(s) (acquired), right foot M20.41 and Other hammer toe(s) (acquired), left foot M20.[address] [address] 11/14/2024 Nik Hernandez [address] [address] 11/15/2024 Nik Hernandez Assessments Encounter Date Diagnosis [...] Treatment Pending Test Test Name Order Date 09765-ANPNPZI NAIL, 6 OR MORE 05/11/2020 42915-HMNKYRC NAIL, 6 OR MORE 09/21/2020 12413-PXNQDEU NAIL, 6 OR MORE 12/21/2020 52251-XKEORYL NAIL, 6 OR MORE 05/17/2021 72547-GFXFSPX NAIL, 6 OR MORE 08/23/2021 24388-WSDUAEO NAIL, 6 OR MORE 01/28/2022 80868-JJDTDGF NAIL, 6 OR MORE 03/01/2024 05227-BCREPBG NAIL, 6 OR MORE 08/19/2024 85631-HPPQPGT NAIL, 6 OR MORE 11/15/2024 38326-EWYEZOI NAIL, 6 OR MORE 04/04/2025 04079-BFMO SKIN LESIONS, OVER 4 04/04/20 25 41605-ZKQA SKIN LESIONS, OVER 4 11/16/19 25 88826-CASY SKIN LESIONS, OVER 4 08/19/19 25 16508-IFIZ SKIN LESIONS, OVER 4 03/01/20 24 Next Appt Details Provider Name:Nik Hernandez , 08/01/2025 09:00:00 AM, [address] [place], [address], Insurance Providers Payer Name Payer Address Payer Phone Subscriber Number Group Number Insured Name Patient Relationship to Insured Coverage Start Date Coverage End Date [facility] [employer] S[employer] Claims [address] [facility] [place]UN[place] [id number] Mine Peacock Self - patient is the insured Medical (General) History Medical History History ICD Code Lung disease COPD CAD Depression Restless Leg type II diabetes Surgical History Surgery Date(Month/Year) teeth extraction Surgery 2019 Left Knee Replacement Right ankle ORIF 2023 Hospitalization History Reason Date(Month/Year) [facility]- fell broke her Right ankle 03/2024 [facility] fell about a week 01/2022 [facility] - pneumonia/ high sugars 15 days
--- OUTSIDE RECORDS SUMMARY | 2025-05-24 14:18 | XMS_ITS ---
Author Name Vicente Zhao Address [address] [place] [address] Phone [phone] Organization [facility] Care Team Providers Care Cafeteria Cook Name Role Phone Cristin Ogden Unavailable [phone] Reason for Referral Not Available Allergies, adverse [...] Data Available BD UF MINI PEN NEEDLE [id number] USE TO ADM INISTER INSULIN TWICE DAILY [...] Data Available BD UF MINI PEN NEEDLE [id number] USE TO ADM INISTER INSULIN TWICE DAILY [...] Female Functional Status Functional Category Effective Dates [employer] assists with cooking, cl eaning, laundry, showering and dressing. Pt reports using assistive device of: 2023-03-30 Mental Status Status Date AOx 2023-03-30 Assessments Not Available Plan of Care Not Available
== END 2025-05-24 12:12 | disposition home or self-care (01) ==
LOC: HO.HMCC 11:27
PROVIDERS: PCP Internal Medicine; Visit Provider Internal Medicine
DX: E10.69 Type 1 diabetes mellitus with other specified complication (principal); E66.01 Morbid (severe) obesity due to excess calories; N18.31 Chronic kidney disease, stage 3a; Z68.41 Body mass index [BMI] 40.0-44.9, adult; Z09 Encounter for follow-up examination after completed treatment for conditions other than malignant neoplasm; K52.9 Noninfective gastroenteritis and colitis, unspecified; R10.32 Left lower quadrant pain; R41.89 Other symptoms and signs involving cognitive functions and awareness; E66.9 Obesity, unspecified; F41.1 Generalized anxiety disorder; R80.9 Proteinuria, unspecified

== ENCOUNTER → 2025-05-24 11:27 | Outpatient (BNVA) | payer OTHER, SELFPAY | PROVIDERS: PCP Internal Medicine; Visit Provider Internal Medicine | DX: R10.32 Left lower quadrant pain (principal); K52.9 Noninfective gastroenteritis and colitis, unspecified; R41.89 Other symptoms and signs involving cognitive functions and awareness; F41.1 Generalized anxiety disorder; E10.69 Type 1 diabetes mellitus with other specified complication; E66.01 Morbid (severe) obesity due to excess calories; N18.31 Chronic kidney disease, stage 3a; R80.9 Proteinuria, unspecified; Z09 Encounter for follow-up examination after completed treatment for conditions other than malignant neoplasm; Z99.81 Dependence on supplemental oxygen | CPT/HCPCS: 99495 ==

== ENCOUNTER 2025-06-20 10:58 | Outpatient (AMB) | payer OTHER, SELFPAY ==
--- NOTE | 2025-06-20 11:00 | HO.NEPHOV_ITS ---
Vital Signs 06/20/25 11:01 Height 5 ft Weight 214 lb BMI 41.8 BP 120/60 Blood Pressure Location Rt brachial Position Sitting Pulse 92 Pulse Source Pulse Oximeter Pulse Oximetry (%) 95 Oxygen Delivery Method Room Air Intake Visit Reasons: 1 month f/u Physicist Nuclear Required: No Accompanied by: BLOOD BANK BUSINESS MANAGER Allergies adhesive tape (ADHESIVE TAPE) Allergy (Intermediate, Verified 06/20/25 11:03) RASH environmental allergies Allergy (Mild, Verified 06/20/25 11:03) URI trimethobenzamide (From TIGAN) Allergy (Mild, Verified 06/20/25 11:03) NAUSEA NSAIDS (Non-Steroidal Anti-Inflamma Adverse Reaction (Mild, Verified 06/20/25 11:03) Nephropathy Medication List - Last Reconciled 06/20/25 by Peter Alexander MD albuterol sulfate 90 mcg/actuation 2 puffs inhalation Q4H PRN albuterol sulfate 2.5 mg (3 mL) inhalation Q4-6H PRN amoxicillin-pot clavulanate 875-125 mg 1 tab PO BID 7 days aspirin 81 mg PO DAILY atorvastatin 80 mg PO DAILY 90 days blood pressure test kit-large Check blood pressure as directed NS blood sugar diagnostic (FreeStyle Lite Strips) Use to check blood sugar 3 times a day as needed blood sugar diagnostic (OneTouch Ultra Test strips) Use to check blood sugar 3 times a day as needed blood-glucose meter (OneTouch Ultra2 Meter) Use to check blood sugar twice daily and when having symptoms of hypo/hyperglycemia bupropion HCl XL 150 mg PO DAILY cholecalciferol (vitamin D3) 125 mcg PO DAILY citalopram 20 mg PO DAILY diaper,brief,adult,disposable Use for stress incontinence diaper,brief,adult,disposable Size large adult pull up briefs dulaglutide (Trulicity) 1.5 mg subcut TH gabapentin 300 mg PO BID hydroxyzine pamoate 25 mg PO DAILY insulin aspart U-100 (Novolog FlexPen U-100 Insulin aspart) See Protocol sliding scale doses subcut BIDAC insulin glargine (Lantus U-100 Insulin) 20 units (0.2 mL) subcut DAILY 90 days lancets once a day lancets Use to check blood sugar twice daily and when having symptoms of hypo/hyperglycemia lisinopril 20 mg PO DAILY 90 days metoclopramide HCl 5 mg PO TIDAC montelukast 10 mg PO DAILY or-[id number]-FA-Ca carb-vit K 18 mg-400 mcg- 500 mg-50 mcg (Women's Multivitamin) 1 tab PO DAILY nebulizers (AeroEclipse II Nebulizer) As directed oxygen-air delivery systems As directed pen needle, diabetic Use to administer insulin twice daily pen needle, diabetic check blood sugar four times per a day pramipexole 0.5 mg PO TID 90 days ropinirole 2 mg PO BID Shower Chair Shower chair with back and arm rests trazodone 150 mg PO BEDTIME PRN walker Wheeled walker with seat and brakes HPI Comments Details: History of Present Illness The patient is a 75-year-old female presenting for a 6-month follow-up for management of chronic kidney disease, stage 3. Her medical history is significant for hypertension, hyperlipidemia, and COPD requiring oxygen. She also has a history of ulcers and an osteochondral defect in the left femur. The patient's chronic kidney disease has been stable for the last two years, with kidney function holding between 30 and 35%. During a hospitalization in April, her kidney function dropped to 17% due to dehydration but recovered to 36% with intravenous fluids. Her last blood test was on May 13. Regarding her diabetes, her blood sugars are reportedly under 200. However, dietary adherence is poor, with frequent consumption of candy, ice cream, and donuts. For her COPD, she uses oxygen continuously at home, including at night, and has a portable tank for use when she is out. She reports feeling tired all the time and experiencing back pain. She also reports recent constipation, with her last bowel movement being two days ago and small in volume. Her blood pressure is managed with lisinopril. She is not on a diuretic. The patient is scheduled to see her family consumer science fcs teacher on July 04 and her primary care physician on July 12. [facility] Medical History Colitis Diabetic nephropathy Diabetes assisted (current) use of insulin Abdominal pain Exercise hypoxemia Depression, major, recurrent Dysuria Diabetes 1.5, managed as type 1 COPD (chronic obstructive pulmonary disease) Respiratory failure with hypoxia Urinary tract infection Hypoxemia Morbid obesity CKD (chronic kidney disease) Anemia Allergic rhinitis ALDO (obstructive sleep apnea) Obesity (BMI 30-39.9) Constipation due to opioid therapy Osteoarthritis of left knee Hx SBO Hyperlipidemia CPAP (continuous positive airway pressure) dependence History of adrenal adenoma Osteochondroma of left femur Arthritis Elevated cholesterol History of restless legs syndrome History of diverticulitis GERD (gastroesophageal reflux disease) Surgical History H/O excision of mass History of oophorectomy History of cholecystectomy History of appendectomy History of arthroscopy of left knee History of partial colectomy Hx of cataract extraction H/O exploratory laparotomy H/O colonoscopy History of surgery History of hysterectomy Family History Father HTN (hypertension) Diabetes mellitus Mother HTN (hypertension) Liver cancer Social History 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: Other 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 Other:: ex Housing: Apartment Are you a primary aged or disabled carer to a significant other at home: No Do you presently have visiting nurse or other home services: No Unable to assess alcohol history related to: Unknown Alcohol intake: never Comment: PT SLEEPING Patient Tobacco Use Status: Never used Tobacco e-Cigarette/Vaping Use: Never Used Second Hand Smoke Exposure: No Advance Directives Date on File: 10/22/23 service: No Current occupational status: retired Cognitive needs: No Hearing needs: No Vision needs: No Female Reproductive History Menstrual Age of Menarche: 13 Physical Exam Exam Exam: Physical Exam General: Awake. Tired all the time. HENT: Neck supple. Mucosa moist. Pulmonary: Lungs aeration equal. No rales. Uses oxygen at home all the time. Cardiology: Heart S1-S2 heard. No gallop. Blood pressure looks pretty good. Abdomen: Soft. Non tender. Bowel sounds normal. Complains of constipation. Neurologic: No involuntary movements. No myoclonus. Extremities: No significant edema. No rash. Vital Signs: Last Vital Signs Pulse 92 06/20/25 11:01 BP 120/60 06/20/25 11:01 Pulse Ox 95 06/20/25 11:01 Oxygen Delivery Method Room Air 06/20/25 11:01 BMI result Body Mass Index 41.8 Results Reviewed Nephrology Results: Hgb, (12.0-16.0) 10.4 g/dl L 05/13/25 WBC, (4.8-10.8) 7.2 X10*3/uL 05/13/25 Plt Count, (160-400) 199 X10*3/uL 05/13/25 Sodium, (135-145) 145 mmol/L 05/13/25 Potassium, (3.3-5.1) 4.3 mmol/L 05/13/25 Chloride, (96-108) 108 mmol/L 05/13/25 Carbon Dioxide, (22-29) 29 mmol/L 05/13/25 BUN, (9-16) 13 mg/dL 05/13/25 Creatinine, (0.5-1.4) 1.42 mg/dL H 05/13/25 Calcium, (8.4-10.2) 8.6 mg/dL 05/13/25 Urine Protein, (Neg-Trace) Negative mg/dL 05/08/25 Urine Creatinine 98.04 mg/dL 05/10/25 Renal US 11/12/22 Assessment & Plan Assessment & Plan (1) Chronic kidney disease, stage III (moderate): Code(s): N18.30 - Chronic kidney disease, stage 3 unspecified Category: Medical Qualifiers: Chronic kidney disease stage 3 subtype: stage 3a (GFR 45-59) Qualified Code(s): N18.31 - Chronic kidney disease, stage 3a (2) Morbid obesity: Code(s): E66.01 - Morbid (severe) obesity due to excess calories Category: Medical Plan: Discussed weight loss (3) Anemia: Code(s): D64.9 - Anemia, unspecified Category: Medical Qualifiers: Anemia type: due to chronic kidney disease Chronic kidney disease stage: stage 3 (moderate) Chronic kidney disease stage 3 subtype: stage 3a (GFR 45-59) Qualified Code(s): N18.31 - Chronic kidney disease, stage 3a; D63.1 - Anemia in chronic kidney disease Plan: Multifactorial No indication for Epogen Plan Plan 1. Chronic Kidney Disease, Stage 3 - The patient's kidney function has been stable between 30-35% for two years and has recovered to 36% following a recent drop to 17% during hospitalization for dehydration. - An order for blood work will be placed for completion in June, prior to her primary care visit, to monitor kidney function. - The patient was counseled on the importance of maintaining good blood pressure and blood sugar control, staying hydrated, and adhering to a low-salt diet to preserve kidney function. - No changes will be made to her current medication regimen today. - A follow-up visit is scheduled in four months, contingent on stable lab results; she will be called to return sooner if results are concerning. 2. Type 2 Diabetes Mellitus - The patient's blood sugars are reportedly under 200, though dietary control is poor with high intake of sugar-containing foods. - The importance of blood sugar control to protect her kidneys was emphasized. - The patient was counseled on diet, including the use of sugar-free alternatives, with the responsibility for dietary management placed on her. 3. Hypertension - The patient's blood pressure is well-controlled on her current regimen. - She will continue taking lisinopril with no changes at this time. 4. Chronic Obstructive Pulmonary Disease - The patient is on continuous home oxygen and uses a portable tank when mobile. - She will follow up with her family consumer science fcs teacher as scheduled on July 04. Patient Instructions - Get your blood work done in June before you see your primary doctor. - It is very important to keep your blood sugar under control to protect your kidneys. Try to avoid sweets like candy, regular ice cream, and donuts. - Continue to follow a low-salt diet and drink plenty of fluids like water. - Continue taking all your other medications as prescribed. We are not making any changes today. - Keep your appointment with your lung doctor on July 04. - Keep your appointment with your primary care doctor on July 12. - We will see you back in our office in about 4 months. We will call you to come in sooner if your lab results are concerning. Orders: Orders Complete Blood Count no Diff 3 Weeks N18.31 - Chronic kidney disease, stage 3a Comprehensive Met. Panel 3 Weeks N18.31 - Chronic kidney disease, stage 3a Medications: Discontinued amoxicillin-pot clavulanate 875-125 mg Discontinued Reason: Patient no longer taking 1 tab PO BID 7 days 14 tabs 0RF Coding Level of Care Code Est Pt Level 4 (59597) Diagnoses Stage 3a chronic kidney disease N18.31 Chronic kidney disease stage 3 subtype: stage 3a (GFR 45-59) Morbid obesity E66.01 Anemia due to stage 3a chronic kidney disease N18.31; D63.1 Anemia type: due to chronic kidney disease Chronic kidney disease stage: stage 3 (moderate) Chronic kidney disease stage 3 subtype: stage 3a (GFR 45-59)
[2025-06-20 11:01] VITALS: BP 120/60; PULSE 92; O2SAT 95; BMI 41.8
== END 2025-06-20 11:22 | disposition home or self-care (01) ==
LOC: HO.HKA 10:59
PROVIDERS: PCP Internal Medicine; Visit Provider Internal Medicine Hypertension Specialist
DX: N18.31 Chronic kidney disease, stage 3a (principal); E66.01 Morbid (severe) obesity due to excess calories; D63.1 Anemia in chronic kidney disease
CPT/HCPCS: 99214

== ENCOUNTER → 2025-06-20 10:58 | Outpatient (BNVA) | payer OTHER, SELFPAY | PROVIDERS: PCP Internal Medicine; Visit Provider Internal Medicine Hypertension Specialist | DX: I12.9 Hypertensive chronic kidney disease with stage 1 through stage 4 chronic kidney disease, or unspecified chronic kidney disease (principal); N18.31 Chronic kidney disease, stage 3a; E11.22 Type 2 diabetes mellitus with diabetic chronic kidney disease; D63.1 Anemia in chronic kidney disease; J44.9 Chronic obstructive pulmonary disease, unspecified; E66.01 Morbid (severe) obesity due to excess calories; Z68.41 Body mass index [BMI] 40.0-44.9, adult; Z79.899 Other long term (current) drug therapy; Z99.81 Dependence on supplemental oxygen | CPT/HCPCS: 99212 ==

== ENCOUNTER 2025-07-04 10:54 | Outpatient (AMB) | payer OTHER, SELFPAY ==
--- OUTSIDE RECORDS SUMMARY | 2024-05-06 04:00 | XMS_ITS ---
Author Organization [facility] Address [address] [place] [address] Care Team Providers Care Closed Circuit Screen Watcher Name Role Phone Chris BROWNE, Shelbi Primary Care Provider UnavailNik Haynes Unavailable [phone] Encounters Encounter Location Date Provider Diagnosis [address] [address] 05/06/2024 Nik Hernandez Plan Of Treatment Next Appt Details Provider Name:Nik Hernandez , 08/01/2025 09:00:00 AM, [address] [place] [address], [phone], Progress Notes * AYUSHMaryeDOB:1950 ( 75 yo F)Acc No.[id number]:05/06/2024 Progress Note Patient: Mine MIMS Provider: Nicolás Hernandez DPM :1950 A ge:74 Y S ex:Female Date:05/06/2024 Address:[address] [place] [address] Pcp:Shelbi Perez MD Subjective: * Chief Complaints: * * Medical History: Objective: * Vitals: Assessment: Plan: * Treatment: * Images: * The named appointment provid er may or may not be the originator of this progress note, and it is not deemed complete until electronically signed by the appointment provider. Sign off status: Pending * Provider: Nicolás Hernandez DPM Date: 1 Generated for Judah locke/Wendy/Kyle on: 1 09/04/2024 12:15 PM EST
--- OUTSIDE RECORDS SUMMARY | 2025-02-21 04:30 | XMS_ITS ---
Author Organization [facility] Address [address] [place] [address] Care Team Providers Care Knitting Machine Mechanic Name Role Phone hCris BROWNE, Shelbi Primary Care Provider Unavailabl Nik Shankar Unavailable [phone] Lopez Encounters Encounter Location Date Provider Diagnosis [address] [address] 02/21/2025 Nik Hernandez Plan Of Treatment Next Appt Details Provider Name:Nik Hernandez , 08/01/2025 09:00:00 AM, [address] [place] [address], [phone], Progress Notes * Mary PEACOCKeDOB:1950 ( 75 yo F)Acc No.[id number]:02/21/2025 Progress Note Patient: Matthew MIMSlene Provider: Nicolás Hernandez DPM :1950 A ge:75 Y S ex:Female Date:02/21/2025 Address:[address] [place] [address] Pcp:Shelbi Perez MD Subjective: * Chief Complaints: [...] 0 02/21/2025 Generated for Judah Owens on: 09/04/2024 12:15 PM EST
--- OUTSIDE RECORDS SUMMARY | 2025-04-11 07:00 | XMS_ITS ---
Author Organization [facility] Address [address] [place] [address] Care Team Providers Care Soil Sort Worker Name Role Phone Shelbi Perez Primary Care Provider Rajwinder Sevilla Unavailable [phone] REASON FOR VISIT Chronic Care F/U Encounters Encounter Location Date Provider Diagnosis [address] [address] 04/11/2025 Rajwinder Johns Plan Of Treatment No Information Progress Notes * Mine PEACOCK RDOB:1950 (75 yo F)Acc No.[id number]:04/11/2025 BLOCKED FROM THE PATIENT Patient: Rob TRINIDADMine External Provider: [place] Diana :1950 A ge:75 Y S ex:Female Date:04/11/2025 Address:[address] [place] [address] [address], [id number] Pcp:Shelbi Perez Subjective: * Chief Complaints: * 1 . Chronic Care F/U. * Medical History: Objective: * Vitals: Assessment: Plan: * Treatment: Care Plan: * Problems: * * The named appointment provid er may or may not be the originator of this progress note, and it is not deemed complete until electronically signed by the appointment provider. Sign off status: Pending * Provider: [place] Diana Date: 0 04/11/2025 Generated for Printi ng/Faprestong/eTransmitting on: 1 09/04/2024 12:15 PM EST
--- OUTSIDE RECORDS SUMMARY | 2025-05-22 06:30 | XMS_ITS ---
Author Organization [facility] Address [address] [place] [address] Care Team Providers Care Machinist Name Role Phone ChrisShelbi Primary Care Provider Alessia Espinosa Unavailable [phone] REASON FOR VISIT palliative follow-up Medications Medication [...] 05/22/2025 Encounters Encounter Location Date Provider Diagnosis [address] [address] 05/22/2025 Alessia Garza COPD (chronic obstructive pulmonary [...] and provided. -Collaborated with PCP and [facility] pulmonary care nurse Plan Of Treatment Medication Medication Name Sig [...] * Mine PEACOCK RDOB:1950 (75 yo F)Acc No.[id number]:05/22/2025 Patient: Mine MIMS External Provider: Nicolás Garza NP :1950 A ge:75 Y S ex:Female Date:05/22/2025 Address:[address] [place] [address] [address], [place] Pcp:Shelbi Perez Subjective: * Chief Complaints: [...] fall with ORIF in 05/05. Recent hospitalizations: [facility] [place]13[place]: colitis/AGUSTIN/CKD st3/diabetic gastroparesis Has completed antibiotic therapy since return home from hospitalization. Had diarrhea while on antibiotics which has resolved. Continues to have mild lower abdominal aches. Denies nausea, vomiting, constipation. Awaiting appointment for colonoscopy. Short of breath with activity at baseline. Denies cough, fever, chills, wheezing, or sputum production. 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 G eneral Visit Information: Encounter Information: O ther(s) present at the visit: Y es Ed- KNIT GOODS WASHER/son, daughter in law, Donovan- ex- Shira suazo of Visit (total time spent): 6 0 minutes. Total visit time includes direct patient care (cniz-oj-frvy or virtual), chart review, documentation and care [...] I don't want to go to a group home * *Goals of Care: Recommendations C ontinue [...] reviewed 05/22/2025- Alessia Garza NP Lives at [facility] in [place] with her significant other, Donovan. Son and daughter live locally and are active in her care. Son, Westley is KNIT GOODS WASHER. * Medications: T aking Metoclopramide HCl 5 [...] consciousness or confusion Assessment: * Assessment: 1. COPD (chronic obstructive pulmonary disease) - J44.9 (Primary) 2 . Palliative care by specialist - Z51.5 Plan: * Treatment: 2. P alliative care by specialist Clinical Notes:-Discussed disease trajectory and associated symptoms -Encouraged to maintain follow-up appts as scheduled given recent hospitalization -Palliative care contact information reviewedand provided. -InstED services/contact information reviewed and provided. -Collaborated with PCP and [facility] pulmonary care nurse * Follow Up: 4 Weeks (Reason: palliative follow-up) * * The named appointment provid er may or may not be the originator of this progress note, and it is not deemed complete until electronically signed by the appointment provider. Sign off status: Pending * Provider: Nicolás Garza NP Date: 07/22/2024 Generated for Judah locke/Wendy/Kyle on: 09/04/2024 12:14 PM EST History and Physical Notes * [...] fall with ORIF in 05/05. Recent hospitalizations: [facility] [place]13/25: colitis/AGUSTIN/CKD st3/diabetic gastroparesis Has completed antibiotic therapy since return home from hospitalization. Had diarrhea while on antibiotics which has resolved. Continues to have mild lower abdominal aches. Denies nausea, vomiting, constipation. Awaiting appointment for colonoscopy. Short of breath with activity at baseline. Denies cough, fever, chills, wheezing, or sputum production. 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 COVID-19 Screening (Questions Revised 11/14/2019) COVID-19 [...] Other(s) present at the visit:: Yes Ed- KNIT GOODS WASHER/son, daughter in law, Donovan- ex- Length of Visit (total time spent):: 60 minutes. Total visit time includes direct patient care (phgs-zu-rqie or virtual), chart review, documentation and care [...]
[2025-07-04 11:07] VITALS: BP 112/70; PULSE 82; O2SAT 92; BMI 42.0
--- NOTE | 2025-07-04 11:07 | MHC.OFFVIS ---
Vital Signs 07/04/25 11:07 Height 5 ft Weight 214 lb 15.211 oz BMI 42.0 BP 112/70 Blood Pressure Location Lt radial Position Sitting Pulse 82 Pulse Source Pulse Oximeter Pulse Oximetry (%) 92 Oxygen Delivery Method Room Air Intake Visit Reasons: copd Intake Note: pt is here for follow up and states she has a lot of wheezing at night, even after treatment and she constantly chokes up on phlegm. pt needs refill on albuterol hfa and nebulized medication. Barrow Worker Required: No Driving Teacher: Driving Teacher offered & declined Allergies adhesive tape (ADHESIVE TAPE) Allergy (Intermediate, Verified 07/04/25 11:29) RASH environmental allergies Allergy (Mild, Verified 07/04/25 11:29) URI trimethobenzamide (From TIGAN) Allergy (Mild, Verified 07/04/25 11:29) NAUSEA NSAIDS (Non-Steroidal Anti-Inflamma Adverse Reaction (Mild, Verified 07/04/25 11:29) Nephropathy Medication List - Last Reconciled 07/04/25 by Hong Frederick MD albuterol sulfate 90 mcg/actuation 2 puffs inhalation Q4H PRN albuterol sulfate 2.5 mg (3 mL) inhalation Q4-6H PRN aspirin 81 mg PO DAILY atorvastatin 80 mg PO DAILY 90 days blood pressure test kit-large Check blood pressure as directed NS blood sugar diagnostic (FreeStyle Lite Strips) Use to check blood sugar 3 times a day as needed blood sugar diagnostic (OneTouch Ultra Test strips) Use to check blood sugar 3 times a day as needed blood-glucose meter (OneTouch Ultra2 Meter) Use to check blood sugar twice daily and when having symptoms of hypo/hyperglycemia bupropion HCl XL 150 mg PO DAILY cholecalciferol (vitamin D3) 125 mcg PO DAILY citalopram 20 mg PO DAILY diaper,brief,adult,disposable Use for stress incontinence diaper,brief,adult,disposable Size large adult pull up briefs dulaglutide (Trulicity) 1.5 mg subcut TH gabapentin 300 mg PO BID hydroxyzine pamoate 25 mg PO DAILY insulin aspart U-100 (Novolog FlexPen U-100 Insulin aspart) See Protocol sliding scale doses subcut BIDAC insulin glargine (Lantus U-100 Insulin) 20 units (0.2 mL) subcut DAILY 90 days lancets once a day lancets Use to check blood sugar twice daily and when having symptoms of hypo/hyperglycemia lisinopril 20 mg PO DAILY 90 days metoclopramide HCl 5 mg PO TIDAC montelukast 10 mg PO DAILY in-pa-wlar-FA-Ca carb-vit K 18 mg-400 mcg- 500 mg-50 mcg (Women's Multivitamin) 1 tab PO DAILY nebulizers (AeroEclipse II Nebulizer) As directed oxygen-air delivery systems As directed pen needle, diabetic Use to administer insulin twice daily pen needle, diabetic check blood sugar four times per a day pramipexole 0.5 mg PO TID 90 days ropinirole 2 mg PO BID Shower Chair Shower chair with back trazodone 150 mg PO BEDTIME PRN walker Wheeled walker with seat and brakes Do you need a note to return to daycare/school/sports/work: No HPI HPI copd: Details: Mine 75 years old female, comes after 4 months for pulmonary follow-up. In the interim. She has had acute exacerbations of her Crohn's disease as well as urinary tract infections. Breathing has remained fairly stable except that at night she has wheezes, also describes choking feeling which makes her . She is grossly obese and has high index of obstructive sleep apnea . She is using albuterol solution in the nebulizer 2 or 3 times a day and also uses albuterol HFA p.r.n. during the daytime. Mine has chronic anxiety and depression , which seems to be well treated at this time. [facility] Medical History Colitis Diabetic nephropathy Diabetes jail (current) use of insulin Abdominal pain Exercise hypoxemia Depression, major, recurrent Dysuria Diabetes 1.5, managed as type 1 COPD (chronic obstructive pulmonary disease) Respiratory failure with hypoxia Urinary tract infection Hypoxemia Morbid obesity CKD (chronic kidney disease) Anemia Allergic rhinitis ALDO (obstructive sleep apnea) Obesity (BMI 30-39.9) Constipation due to opioid therapy Osteoarthritis of left knee Hx SBO Hyperlipidemia CPAP (continuous positive airway pressure) dependence History of adrenal adenoma Osteochondroma of left femur Arthritis Elevated cholesterol History of restless legs syndrome History of diverticulitis GERD (gastroesophageal reflux disease) Surgical History H/O excision of mass History of oophorectomy History of cholecystectomy History of appendectomy History of arthroscopy of left knee History of partial colectomy Hx of cataract extraction H/O exploratory laparotomy H/O colonoscopy History of surgery History of hysterectomy Family History Father HTN (hypertension) Diabetes mellitus Mother HTN (hypertension) Liver cancer Social History 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: Other 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 Other:: ex Housing: Apartment Are you a primary acute care nurse practitioner to a significant other at home: No Do you presently have visiting nurse or other home services: No Alcohol intake: never Comment: PT SLEEPING Patient Tobacco Use Status: Never used Tobacco e-Cigarette/Vaping Use: Never Used Second Hand Smoke Exposure: No Advance Directives Date on File: 10/22/23 service: No Current occupational status: retired Cognitive needs: No Hearing needs: No Vision needs: No Female Reproductive History Menstrual Age of Menarche: 13 Review of Systems Const All systems reviewed & are unremarkable except as noted in HPI and below Eyes Reports no additional complaints ENT Reports nasal congestion (Intermittent) Card Denies chest pain, Denies irregular heart rhythm, Reports leg edema and Reports dyspnea Resp Reports as per HPI and Reports dyspnea GI Reports no additional complaints Reports no additional complaints Musc Reports abnormal gait (Impaired gait due to weakness of lower extremities, has to use a walker), Reports back pain and Reports limited range of motion Skin/Breast Reports system reviewed and no additional complaints, except as documented Neuro Reports abnormal gait (Impaired gait due to weakness of lower extremities, has to use a walker) Endo Reports other (Being treated for diabetes mellitus with diabetic neuropathy) Physical Exam Vital Signs: Last Vital Signs Pulse 82 07/04/25 11:07 BP 112/70 07/04/25 11:07 Pulse Ox 92 07/04/25 11:07 Oxygen Delivery Method Room Air 07/04/25 11:07 BMI result Body Mass Index 42.0 Const General: comfortable (But very weak), no acute distress, alert and awake Orientation/consciousness: patient oriented x3 HEENT Head: Yes normal to inspection General nose exam: No nasal polyps present, No nasal discharge present and Other nasal findings present (Mild nasal congestion) Face and sinus: Yes sinuses nontender Mouth: oropharynx normal (Oropharynx is narrow and crowded, Mallampati scale 3) Throat: Yes posterior oropharynx normal Eyes General: appearance normal, both eyes and all related structures Neck Neck: Yes normal visual inspection, Yes no lymphadenopathy, Yes trachea midline and Yes no JVD Thyroid: Thyroid normal Chest Chest palpation & inspection: normal inspection of the chest, normal palpation of entire chest wall and no tenderness Resp Other: Percussion note is resonant, breath sounds are very decreased over the basilar areas. No audible wheezes rhonchi or creps. Cardio Palpation: normal PMI Rate: regular rate Rhythm: regular rhythm Heart sounds: no gallops and no murmurs GI Palpation (GI): Soft to palpation, nontender, No hepatosplenomegaly present, no masses and Other GI palpation findings present (Abdomen is obese and protuberant) Auscultation: normal bowel sounds Back/Spine/Pelvis Thoracic/Lumbar Spine: thoracic and lumbar spine normal to inspection and thoraco-lumbar ROM limited Skin General skin exam: no rashes or lesions noted Neuro General: patient oriented x3 and no focal motor deficits Cranial nerves: Yes CN's II-XII intact bilaterally Extrem General: Yes normal to inspection, Yes no calf tenderness, Yes edema (ONLY MINIMAL AT THIS TIME.) and Yes venous stasis dermatitis Psych Appearance: grossly normal Speech and movement: Normal speech and movement present Assessment & Plan Assessment & Plan (1) ALDO (obstructive sleep apnea): Comment: Patient does have obstructive sleep apnea as expected, But not able to use the CPAP. She also has associated nocturnal hypoxemia. And that is being treated with O2 2 L/minute at night. Code(s): G47.33 - Obstructive sleep apnea (adult) (pediatric) Category: Medical Plan: Continue O2 2 L/minute at night. Try to sleep in a semi propped up position (2) Restrictive airway disease: Comment: Patient has restrictive lung disorder related to obesity and poor effort in breathing. Code(s): J98.4 - Other disorders of lung Category: Medical Plan: In addition to using O2,, she is instructed to lose some weight, and do deep breathing exercises 3 times a day. (3) Nocturnal hypoxemia: Comment: SHE DOES HAVE NOCTURNAL HYPOXEMIA PART OF HER OBSTRUCTIVE SLEEP APNEA. ALSO SHE DESATURATES QUICKLY ON TRYING TO WALK AROUND. CONFIRMED BY 6 MINUTES WALK . Code(s): G47.34 - Idiopathic sleep related nonobstructive alveolar hypoventilation Category: Medical Plan: O2 2 L/minute at night. And use portable O2 2-3 L/minute, when going outdoors. (4) Respiratory tract congestion with cough: Comment: She continues to have, feeling of chest congestion and an urge to cough and expectorates. I think this is part of her COPD/ chronic bronchitis. Code(s): R05 - Cough Category: Medical Plan: [place] ; advised to continue using DuoNeb updrafts Q 6 hours while awake, and use albuterol updraft Q 4 hours only p.r.n. but sparingly. I have prescribed budesonide solution to be used in the nebulizer b.i.d. (5) Respiratory failure with hypoxia: Comment: This patient definitely has nocturnal hypoxemia as well as Exercise induced Hypoxemia . Use of POC not effective as she is mouth breather Code(s): J96.91 - Respiratory failure, unspecified with hypoxia Category: Medical Plan: Continue to use O2 via stationary concentrator and also with portable cylinder . (6) Allergic rhinitis: Comment: Mild, and AND SEEMS TO BE FAIRLY WELL CONTROLLED AT THIS TIME. Code(s): J30.9 - Allergic rhinitis, unspecified Category: Medical Qualifiers: Allergic rhinitis trigger: other Allergic rhinitis seasonality: non-seasonal Qualified Code(s): J30.89 - Other allergic rhinitis Plan: Continue montelukast 10 mg daily . Medications: New budesonide 0.5 mg (2 mL) inhalation BID 120 mL 4RF copd 30 days Coding Level of Care Code Est Pt Level 4 (81899) Diagnoses ALDO (obstructive sleep apnea) G47.33 Restrictive airway disease J98.4 Nocturnal hypoxemia G47.34 Respiratory tract congestion with cough R05 Respiratory failure with hypoxia J96.91 Non-seasonal allergic rhinitis due to other allergic trigger J30.89 Allergic rhinitis trigger: other Allergic rhinitis seasonality: non-seasonal
--- OUTSIDE RECORDS SUMMARY | 2025-07-04 12:15 | XMS_ITS | Encounter Summary ---
Author Organization [facility] Address [address] [place] [address] Care Team Providers Care Chemical Cell Changer Name Role Phone Delaney Sherman MD Primary Care Provider Encounter Details Date Type Department Care Team (Latest Contact Info) Description 06/14/2024 Lab Requisition [facility] - Main Lab [address] [place] [address] Delaney Sherman MD [address] [place] [id number] prison (current) use of insulin (CMS/HCC V24, [...] HEMOGLOBIN A1C Routine 06/14/2024 4:50 AM EST prison (current) use of insulin (CMS/[facility]) Type 2 diabetes mellitus without complications (CMS/[facility]) documented in this encounter Results * [...] MD LAB BLOOD ORDERABLES Final Resu lt [facility] ([facility]) [facility] [address] [place] [address], documented in this encounter Visit Diagnoses Diagnosis long term care administrator (current) use of insulin (CMS/HCC V24, CMS/[facility] V28) Type 2 diabetes mellitus without complications (CMS/HCC V24, CMS/HCC V28) documented in this encounter Care Teams Chemical Cell Changer Relationship Specialty Start Date End Date Delaney Sherman MD [address] [place] [id number] PCP - General Hospitalist Medicine 06/14/24 documented as of this encounter
--- OUTSIDE RECORDS SUMMARY | 2025-07-04 12:15 | XMS_ITS | Clinical Summary ---
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) Type 2 diabetes mellitus without complications ([facility]) from Last 3 Months or Most Recently Relevant to Health Maintenance Results * (ABNORMAL) Hemoglobin A1c (06/14/2024 4:50 AM EST) Hemoglobin A1C 6.5(H) <6.5 % LAB CHEMISTRY METHOD 06/14/2024 12:36 PM EST [facility] Mean Bld Glu Estim. 140 mg/dL LAB CHEMISTRY METHOD 06/14/2024 12:36 PM EST [facility] Blood Venous blood specimen / Unknown Venipuncture / Unknown 06/14/2024 4:50 AM EST 06/14/2024 8:48 AM EST us Delaney Sherman MD LAB BLOOD ORDERABLES Final Resu lt [facility] ([facility]) HOSPITAL LAB [address] [place] [address], from Last 3 Months or Most Recently Relevant to Health Maintenance Insurance [employer] Member Subscriber Plan / Payer (Ef fective 2023-Present) Name:Mine Peacock Relation to Subscriber:Self Name:Mine Peacock Payer ID:[id number] Group ID:[id number] Type:Not on file Address: [place] [address] [place] [id number] Care Teams Ctc Operator Relationship Specialty Start Date End Date Delaney Sherman MD [address] [place] [id number] PCP - General Hospitalist Medicine 06/14/24
--- OUTSIDE RECORDS SUMMARY | 2025-07-04 12:15 | XMS_ITS | Patient Health Record ---
Author Organization [facility] Address [address] [place] [address] Care Team Providers Care Senior Information Systems Architect Name Role Phone Chris BROWNE, Asma Primary Care Provider Ellis Cheng Unavailable [phone] Gladys BROWNE, Wallace Unavailable Unavailable Allergies Allergen (clinical drug ingredient) Drug/Non Drug Allergy documented on EMR Reaction Allergy Type Onset Date Status trimethobenzamide Tigan Unknown Drug Allergy Active Reason For Referral No Information Problems Problem Type SNOMED Code ICD Code Onset Dates Problem Status W/U Status Risk Notes Problem Ulcerative colitis (77271660) Ulcerative colitis (K51.90) Active confirmed Plan Of Treatment Next Appt Details Provider Name:Ellis Sheikh , 09/19/2025 10:30:00 AM, [address], [address], [place], [address], Insurance Providers Payer Name Payer Address Payer Phone Subscriber Number Group Number Insured Name Patient Relationship to Insured Coverage Start Date Coverage End Date [facility] [address] Attn Claims [place] [id number] DESMOND BROOKE Self - patient is the insured Medical (General) History Medical History History ICD Code colonoscopy 11-09-2006 gerd Surgical History Surgery Date(Month/Year) cholecystectomy hysterectomy with oophorectomy D&C and tubal ligation
--- OUTSIDE RECORDS SUMMARY | 2025-07-04 12:15 | XMS_ITS | Patient Health Record ---
Author Organization [facility] liance Address [address] [place] [address] Care Team Providers Care Ramp Lead Name Role Phone Shelbi Perez Primary Care Provider Unavailabl e Clinical, Operations Unavailable Unavailable Alessia Garza Unavailable [phone] Rajwinder Johns Unavailable [phone] Opal Gustafson Unavailable [phone] Allergies Allergen (clinical drug ingredient) Drug/Non Drug Allergy documented on EMR Reaction Allergy Type Onset Date Status Cloth tape (uncoded) skin redness/pain Allergy Active Zofran vomiting Drug Allergy Active Reason For Referral No Information Medications Medication SIG (Take, Route, Frequency, Duration) Notes Start Date End Date Status Oxygen Concentrator 2-3 liters 2lPM as needed to maintain 2 sat 88-92% continuous 2L PRN Active Montelukast Sodium 10 MG 1 tablet Orally Once a day Active Loratadine 10 MG 1 tablet Orally Once a day; Duration: 30 days Member reports not taking. Not-Taking Budesonide 2 MG/10ML 10 mL Orally Twice a day Member reports not taking. Not-Taking Pramipexole Dihydrochloride 0.5 MG 1 tablet Orally 3 times a day Active Metoclopramide HCl 5 MG 1 tablet before meals Orally 3 times a day treatment completed Not-Taking Cyclobenzaprine HCl 10 MG 1 tablet at bedtime as needed Orally Once a day Member reports not taking. Not-Taking rOPINIRole HCl 2 MG 1 tablet Orally Twice a day Not-Taking Multivitamin - 1 tablet Orally Once a day Active Ipratropium-Albuterol 0.5-2.5 (3) MG/3ML 3 mL as needed Inhalation every 6 hrs Member reports not taking. Not-Taking amLODIPine Besylate 5 MG 1 tablet Orally Once a day Member reports not taking. Not-Taking Aspirin 81 MG 1 tablet Orally Once a day; Duration: 90 days Active Lisinopril 20 MG 1 tablet Orally Once a day Active Citalopram Hydrobromide 10 MG 1 tablet Orally Once a day Active Vitamin D3 125 MCG (5000 UT) 1 capsule Orally Once a day; Duration: 90 days Active Albuterol Sulfate (2.5 MG/3ML) 0.083% 3 mL as needed Inhalation every 6 hrs PRN only Active [facility] Fluticasone Propionate 50 MCG/ACT 1 spray in each nostril Nasally Twice a day; Duration: 30 days Active traZODone HCl 150 MG 1 tablet at bedtime Orally Once a day Active buPROPion HCl ER (SR) 150 MG 1 tablet in the morning Orally Once a day Active Albuterol Sulfate HFA 108 (90 Base) MCG/ACT 1 puff as needed Inhalation every 4 hrs PRN Active Gabapentin 300 MG 1 capsule Orally twice a day Active Insulin Aspart FlexPen 100 UNIT/ML as directed Subcutaneous Sliding scale TID Active Dulaglutide 3 MG/0.5ML as directed Subcutaneous weekly Active Lantus SoloStar 100 UNIT/ML 20 units Subcutaneous daily; Duration: 30 days Active hydrOXYzine HCl 25 MG as directed Orally twice a day PRN anxiety Active Tylenol Extra Strength 500 MG 1 tablet as needed Orally every 6 hrs OTC Active Atorvastatin Calcium 80 MG 1 tablet Orally Once a day Active Problems Problem Type SNOMED Code ICD Code Onset Dates Problem Status W/U Status Risk Notes Problem Vitamin D deficiency (29606230) Vitamin D deficiency, unspecified (E55.9) Active confirmed Problem Dysuria (65606866) Dysuria (R30.0) Inactive confirmed Problem Type II diabetes mellitus without complication (791705954) Diabetes (E11.9) Inactive confirmed Problem Tinea unguium (333328759) Tinea unguium (B35.1) Active confirmed Problem Obstructive sleep apnea syndrome (20348401) ALDO on CPAP (G47.33) Active confirmed Problem Chest pain (85452713) Chest pain (R07.9) Problem resolved confirmed Problem Heart failure (70612775) Heart failure, unspecified (I50.9) Inactive confirmed Problem History of fall (995791362) History of falling (Z91.81) Active confirmed Problem Hypertension (23465180) HTN (hypertension) (I10) Inactive confirmed Problem Acute exacerbation of chronic obstructive airways disease (223750865) COPD exacerbation (J44.1) Problem resolved confirmed Problem COPD - Chronic obstructive pulmonary disease (23988440) COPD (chronic obstructive pulmonary disease) (J44.9) Active confirmed Problem Dyspnea (921550273) Dyspnea (R06.00) Inactive confirmed Problem Tachycardia (2901296) Tachycardia, unspecified (R00.0) Active confirmed Problem Mixed incontinence (994239387) Mixed incontinence (N39.46) Active confirmed Problem Generalized anxiety disorder (11662197) RACHNA (generalized anxiety disorder) (F41.1) Active confirmed Problem Polyneuropathy due to type 2 diabetes mellitus (216716983) Type 2 diabetes mellitus with diabetic polyneuropathy (E11.42) Active confirmed Problem Chronic kidney disease (242799653) CKD (chronic kidney disease) (N18.9) Inactive confirmed Problem Polyneuropathy (58879379) Polyneuropathy (G62.9) Inactive confirmed Problem Moderate recurrent major depression (02435812) Major depressive disorder, recurrent episode, moderate (F33.1) Active confirmed Problem Polymyalgia rheumatica (88253360) Polymyalgia rheumatica (M35.3) Active confirmed Problem Restless legs (73097400) Restless legs syndrome (RLS) (G25.81) Active confirmed Problem Dependence on supplemental oxygen (230364622169) 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) Active confirmed Problem Dementia (65639921) Dementia, unspecified, without behavioral disturbance (F03.90) Active confirmed Problem Chronic respiratory failure (30692115) Chronic respiratory failure with hypoxia (J96.11) Active confirmed Problem Chronic kidney disease stage 4 (381782647) Chronic kidney disease, stage 4 (severe) (N18.4) Active confirmed Problem Urinary tract infectious disease (05699256) Recurrent UTI (urinary tract infection) (N39.0) Active confirmed Problem Osteoarthritis of knee (990152985) Unilateral primary osteoarthritis, left knee (M17.12) Active confirmed Problem Extrapyramidal disorder (88501078) Extrapyramidal disorder (G25.9) Active confirmed Problem Chronic dacryocystitis (79030444) 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) Active confirmed Problem Panlobular emphysema (5352194) Panlobular emphysema (J43.1) Active confirmed Problem Acquired hammer toe of right foot (4554449562778338 ) Other hammer toe(s) (acquired), right foot (M20.41) Active confirmed Problem Acquired hammer toe of left foot (9187060626720637 ) Other hammer toe(s) (acquired), left foot (M20.42) Active confirmed Problem Abnormal gait (40657356) Other abnormalities of gait and mobility (R26.89) Active confirmed Problem Unspecified symptoms and signs involving the genitourinary system (R39.9) Active confirmed Problem Displaced trimalleolar fracture of right lower leg, subsequent encounter for closed fracture with routine healing (S82.851D) Active confirmed Problem Spondylosis without myelopathy (11902832) Arthritis, low back (M47.819) Active confirmed Problem Diarrhea (55067841) Diarrhea, unspecified (R19.7) Active confirmed Problem Chronic pain (84461246) Other chronic pain (G89.29) Active confirmed Problem Long-term current use of insulin (531935601) 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 (Z79.4) Active confirmed Problem Chronic diastolic heart failure (982028378) Chronic diastolic (congestive) heart failure (I50.32) Active confirmed Problem 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 failure (23680736902953) 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 kidney disease, or unspecified chronic kidney disease (I13.0) Active confirmed Problem Diabetic peripheral neuropathy associated with type 2 diabetes mellitus (3871151840209) Type 2 diabetes mellitus with diabetic neuropathy, unspecified (E11.40) Active confirmed Problem Morbid obesity (disorder) (340329118) Morbid (severe) obesity due to excess calories (E66.01) Active confirmed Problem Abrasion of skin (78754009) Skin abrasion (T14.8XXA) Active confirmed Problem Hyperglycemia due to type 2 diabetes mellitus (314568996261911) Uncontrolled type 2 diabetes mellitus with hyperglycemia (E11.65) Active confirmed Problem Disease caused by Severe acute respiratory syndrome coronavirus 2 (disorder) (587442847) COVID-19 virus infection (U07.1) Problem resolved confirmed Problem COVID-19 (358794174) COVID-19 (U07.1) Inactive confirmed Problem Chronic kidney disease stage 3A (661099618) Stage 3a chronic kidney disease (N18.31) Inactive confirmed Problem Body mass index 40+ - severely obese (056712329) Body mass index [BMI] 40.0-44.9, adult (Z68.41) Active confirmed Problem Diabetic on non-insulin injectable medication (finding) (251166660) Long-term current use of injectable noninsulin antidiabetic medication (Z79.85) Active confirmed Problem Acquired nasolacrimal duct stenosis (372649617) 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) Inactive confirmed Problem Late effect of fracture of lower extremities (24091470) Closed displaced trimalleolar fracture of right ankle, sequela (S82.851S) Inactive confirmed Vital Signs Heart Rate 57 /min 06/19/2025 Temperature 98.0 degrees Fahrenheit 06/19/2025 Respiratory Rate 18 /min 06/19/2025 Height-cm 152.4 cm 06/19/2025 Blood pressure diastolic 66 mm Hg 06/19/2025 Oximetry 96 % 06/19/2025 Weight-kg 97.07 kg 04/17/2025 Height 60 in 06/19/2025 Blood pressure systolic 128 mm Hg 06/19/2025 Weight 214 lbs 04/17/2025 BMI 41.79 kg/m2 04/17/2025 Encounters Encounter Location Date Provider Diagnosis [facility] [address] [facility] [place] [address] 05/22/2025 Alessia Garza COPD (chronic obstructive pulmonary disease) J44.9 and Palliative care by specialist Z51.[address] [address] 07/05/2024 Rajwinder Johns COPD (chronic obstructive pulmonary disease) J44.9 ; RACHNA (generalized anxiety disorder) F41.1 and 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 [address] 07/07/2024 Rajwinder Johns 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 kidney disease, or unspecified chronic kidney disease I13.0 ; Chronic diastolic (congestive) heart failure I50.32 ; Stage 3a chronic kidney disease N18.31 ; COPD (chronic obstructive pulmonary disease) J44.9 ; Type 2 diabetes mellitus with diabetic neuropathy, unspecified E11.40 ; 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 Z79.4 ; Major [...] dependent Z99.81 and Other chronic pain G89.[address] [address] 07/15/2024 Rajwinder Johns COPD (chronic obstructive pulmonary disease) J44.9 ; RACHNA (generalized anxiety disorder) F41.1 ; 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 ; Type 2 diabetes mellitus with diabetic neuropathy, unspecified E11.40 ; Uncontrolled type 2 diabetes mellitus with hyperglycemia E11.65 ; Chronic kidney disease, stage 3b N18.32 ; Morbid (severe) obesity due to excess calories E66.01 ; Body mass index [BMI] 40.0-44.9, adult Z68.41 ; long-term (current) use of insulin Z79.4 ; Long-term current use of injectable noninsulin antidiabetic medication Z79.85 and 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 kidney disease, or unspecified chronic kidney disease I13.[address] [address] 07/22/2024 Rajwinder Johns COPD (chronic obstructive pulmonary disease) J44.9 ; RACHNA (generalized anxiety disorder) F41.1 ; 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 ; Type 2 diabetes mellitus with diabetic neuropathy, unspecified E11.40 ; Uncontrolled type 2 diabetes mellitus with hyperglycemia E11.65 ; Chronic kidney disease, stage 3b N18.32 ; Morbid (severe) obesity due to excess calories E66.01 ; Body mass index [BMI] 40.0-44.9, adult Z68.41 ; 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 Z79.4 ; Long-term current use of injectable noninsulin antidiabetic medication Z79.85 and 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 kidney disease, or unspecified chronic kidney disease I13.[address] [address] 07/28/2024 Rajwinder Johns COPD (chronic obstructive pulmonary disease) J44.9 ; RACHNA (generalized anxiety disorder) F41.1 ; 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 ; Type 2 diabetes mellitus with diabetic neuropathy, unspecified E11.40 ; Uncontrolled type 2 diabetes mellitus with hyperglycemia E11.65 ; Chronic kidney disease, stage 3b N18.32 ; Morbid (severe) obesity due to excess calories E66.01 ; Body mass index [BMI] 40.0-44.9, adult Z68.41 ; 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 Z79.4 ; Long-term current use of injectable noninsulin antidiabetic medication Z79.85 and 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 kidney disease, or unspecified chronic kidney disease I13.[address] [address] 08/02/2024 Rajwinder Johns COPD (chronic obstructive pulmonary disease) J44.9 ; RACHNA (generalized anxiety disorder) F41.1 ; 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 ; Type 2 diabetes mellitus with diabetic neuropathy, unspecified E11.40 ; Uncontrolled type 2 diabetes mellitus with hyperglycemia E11.65 ; Chronic kidney disease, stage 3b N18.32 ; Morbid (severe) obesity due to excess calories E66.01 ; Body mass index [BMI] 40.0-44.9, adult Z68.41 ; 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 Z79.4 ; Long-term current use of injectable noninsulin antidiabetic medication Z79.85 and 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 kidney disease, or unspecified chronic kidney disease I13.[address] [address] 08/08/2024 Rajwinder Johns COPD (chronic obstructive pulmonary disease) J44.9 ; RACHNA (generalized anxiety disorder) F41.1 ; 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 ; Type 2 diabetes mellitus with diabetic neuropathy, unspecified E11.40 ; Uncontrolled type 2 diabetes mellitus with hyperglycemia E11.65 ; Chronic kidney disease, stage 3b N18.32 ; Morbid (severe) obesity due to excess calories E66.01 ; Body mass index [BMI] 40.0-44.9, adult Z68.41 ; 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 Z79.4 ; Long-term [...] closed fracture with routine healing S82.851D [address] [address] 08/16/2024 Rajwinder Johns COPD (chronic obstructive pulmonary disease) J44.9 ; RACHNA (generalized anxiety disorder) F41.1 ; 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 ; Type 2 diabetes mellitus with diabetic neuropathy, unspecified E11.40 ; Uncontrolled type 2 diabetes mellitus with hyperglycemia E11.65 ; Chronic kidney disease, stage 3b N18.32 ; Morbid (severe) obesity due to excess calories E66.01 ; Body mass index [BMI] 40.0-44.9, adult Z68.41 ; long-term (current) use of insulin Z79.4 ; Long-term [...] closed fracture with routine healing S82.851D [address] [address] 08/23/2024 Rajwinder Johns COPD (chronic obstructive pulmonary disease) J44.9 ; RACHNA (generalized anxiety disorder) F41.1 ; 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 ; Type 2 diabetes mellitus with diabetic neuropathy, unspecified E11.40 ; Uncontrolled type 2 diabetes mellitus with hyperglycemia E11.65 ; Chronic kidney disease, stage 3b N18.32 ; Morbid (severe) obesity due to excess calories E66.01 ; Body mass index [BMI] 40.0-44.9, adult Z68.41 ; 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 Z79.4 ; Long-term [...] closed fracture with routine healing S82.851D [address] [address] 08/30/2024 Rajwinder Johns COPD (chronic obstructive pulmonary disease) J44.9 ; RACHNA (generalized anxiety disorder) F41.1 ; 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 ; Type 2 diabetes mellitus with diabetic neuropathy, unspecified E11.40 ; Uncontrolled type 2 diabetes mellitus with hyperglycemia E11.65 ; Chronic kidney disease, stage 3b N18.32 ; Morbid (severe) obesity due to excess calories E66.01 ; Body mass index [BMI] 40.0-44.9, adult Z68.41 ; 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 Z79.4 ; Long-term [...] healing S82.851D and Skin abrasion T14.8XXA [address] [address] 09/01/2024 Rajwinder Johns RACHNA (generalized anxiety disorder) F41.1 ; Other chronic pain G89.29 ; Unilateral primary osteoarthritis, left knee M17.12 ; Arthritis, low back M47.819 ; Displaced trimalleolar fracture of right lower leg, subsequent encounter for closed fracture with routine healing S82.851D ; Skin abrasion T14.8XXA and Major depressive disorder, recurrent episode, moderate F33.[address] [address] 09/08/2024 Rajwinder Johns RACHNA (generalized anxiety disorder) F41.1 ; Other chronic pain G89.29 ; Unilateral primary osteoarthritis, left knee M17.12 ; Arthritis, low back M47.819 ; Displaced trimalleolar fracture of right lower leg, subsequent encounter for closed fracture with routine healing S82.851D ; Skin abrasion T14.8XXA and Major depressive disorder, recurrent episode, moderate F33.[address] [address] 09/15/2024 Rajwinder Johns RACHNA (generalized anxiety disorder) [...] disease) J44.9 ; 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 ; 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 Z79.4 ; Long-term current use of injectable noninsulin antidiabetic medication Z79.85 ; Chronic kidney disease, stage 3b N18.32 and Morbid (severe) obesity due to excess calories E66.[address] [address] 09/22/2024 Rajwinder Johns RACHNA (generalized anxiety disorder) [...] disease) J44.9 ; 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 ; 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 Z79.4 ; Long-term current use of injectable noninsulin antidiabetic medication Z79.85 ; Chronic kidney disease, stage 3b N18.32 and Morbid (severe) obesity due to excess calories E66.[address] [address] 09/29/2024 Rajwinder Johns RACHNA (generalized anxiety disorder) [...] disease) J44.9 ; 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 ; 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 Z79.4 ; Long-term current use of injectable noninsulin antidiabetic medication Z79.85 ; Chronic kidney disease, stage 3b N18.32 and Morbid (severe) obesity due to excess calories E66.01 [facility] [address] [facility] [place] [place] [address] 10/07/2024 Rajwinder Johns RACHNA (generalized anxiety disorder) [...] disease) J44.9 ; 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 ; long-term (current) use of insulin Z79.4 ; Long-term current use of injectable noninsulin antidiabetic medication Z79.85 ; Chronic kidney disease, stage 3b N18.32 and Morbid (severe) obesity due to excess calories E66.[address] [address] 10/14/2024 Rajwinder Johns RACHNA (generalized anxiety disorder) [...] disease) J44.9 ; 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 ; 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 Z79.4 ; Long-term current use of injectable noninsulin antidiabetic medication Z79.85 ; Chronic kidney disease, stage 3b N18.32 and Morbid (severe) obesity due to excess calories E66.[address] [place] [address] 10/21/2024 Rajwinder Johns RACHNA (generalized anxiety disorder) [...] disease) J44.9 ; 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 ; 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 Z79.4 ; Long-term current use of injectable noninsulin antidiabetic medication Z79.85 ; Chronic kidney disease, stage 3b N18.32 and Morbid (severe) obesity due to excess calories E66.[address] [place] [address] 10/27/2024 Rajwinder Johns Arthritis, low back M47.819 [...] 3b N18.32 and Seasonal allergic reaction J30.2 [facility] [address] [place] [address] 10/28/2024 Operations Clinical Type 2 diabetes mellitus [...] closed fracture with routine healing S82.851D ; long-term (current) use of insulin Z79.4 ; Long-term current use of injectable noninsulin antidiabetic medication Z79.85 ; 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 ; Morbid (severe) obesity due to excess calories E66.01 ; Body mass index [BMI] 40.0-44.9, adult Z68.41 ; Skin abrasion T14.8XXA and Seasonal allergic reaction J30.[address] [address] 11/04/2024 Rajwinder Johns Arthritis, low back M47.819 [...] 3b N18.32 and Seasonal allergic reaction J30.[address] [address] 11/14/2024 Rajwinder Nat Arthritis, low back M47.819 ; Type 2 diabetes mellitus with diabetic neuropathy, unspecified E11.40 ; 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 kidney disease, or unspecified chronic kidney disease I13.0 ; COPD (chronic obstructive pulmonary disease) J44.9 ; 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 and Chronic kidney disease, stage 3b N18.[address] [address] 11/28/2024 Rajwinderjc Johns Arthritis, low back M47.819 ; Type 2 diabetes mellitus with diabetic neuropathy, unspecified E11.40 ; 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 kidney disease, or unspecified chronic kidney disease I13.0 ; COPD (chronic obstructive pulmonary disease) J44.9 ; 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 and Chronic kidney disease, stage 3b N18.[address] [address] 12/02/2024 Rajwinder Johns History of falling Z91.[address] [address] 12/16/2024 Rajwinder Johns Arthritis, low back M47.819 ; Type 2 diabetes mellitus with diabetic neuropathy, unspecified E11.40 ; 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 kidney disease, or unspecified chronic kidney disease I13.0 ; COPD (chronic obstructive pulmonary disease) J44.9 ; 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 and Chronic kidney disease, stage 3b N18.[address] [address] 12/27/2024 Rajwinder Johns COPD (chronic obstructive pulmonary disease) J44.9 ; Recurrent UTI (urinary tract infection) N39.0 ; Type 2 diabetes mellitus with diabetic neuropathy, unspecified E11.40 ; Uncontrolled type 2 diabetes mellitus with hyperglycemia E11.65 ; Chronic respiratory failure with hypoxia J96.11 ; 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 Z79.4 ; Long-term current use of injectable noninsulin antidiabetic medication Z79.85 and 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 [address] 2025 Rajwinder Johns COPD (chronic obstructive pulmonary disease) J44.9 ; Recurrent UTI (urinary tract infection) N39.0 ; Type 2 diabetes mellitus with diabetic neuropathy, unspecified E11.40 ; Uncontrolled type 2 diabetes mellitus with hyperglycemia E11.65 ; Chronic respiratory failure with hypoxia J96.11 ; 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 Z79.4 ; Long-term current use of injectable noninsulin antidiabetic medication Z79.85 ; 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 ; 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 kidney disease, or unspecified chronic kidney disease I13.0 ; Chronic kidney disease, stage 3b N18.32 ; Vitamin D deficiency, unspecified E55.9 and Mixed incontinence N39.[address] [address] 01/27/2025 Rajwinder Johns COPD (chronic obstructive pulmonary disease) J44.9 ; Recurrent UTI (urinary tract infection) N39.0 ; Type 2 diabetes mellitus with diabetic neuropathy, unspecified E11.40 ; Uncontrolled type 2 diabetes mellitus with hyperglycemia E11.65 ; Chronic respiratory failure with hypoxia J96.11 ; long-term (current) use of insulin Z79.4 ; Long-term current use of injectable noninsulin antidiabetic medication Z79.85 ; 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 ; 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 kidney disease, or unspecified chronic kidney disease I13.0 ; Mixed incontinence N39.46 and Chronic kidney disease, stage 4 (severe) N18.[address] [address] 01/30/2025 Rajwinder Johns COPD (chronic obstructive pulmonary disease) J44.9 ; Recurrent UTI (urinary tract infection) N39.0 ; Type 2 diabetes mellitus with diabetic neuropathy, unspecified E11.40 ; Uncontrolled type 2 diabetes mellitus with hyperglycemia E11.65 ; Chronic respiratory failure with hypoxia J96.11 ; long-term (current) use of insulin Z79.4 ; Long-term current use of injectable noninsulin antidiabetic medication Z79.85 ; 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 ; 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 kidney disease, or unspecified chronic kidney disease I13.0 ; Mixed incontinence N39.46 and Chronic kidney disease, stage 4 (severe) N18.[address] [address] 02/03/2025 Rajwinder Johns Diarrhea, unspecifie d R19.[address] [address] 02/14/2025 Rajwinder Johns COPD (chronic obstructive pulmonary disease) J44.9 ; Type 2 diabetes mellitus with diabetic neuropathy, unspecified E11.40 ; Uncontrolled type 2 diabetes mellitus with hyperglycemia E11.65 ; Chronic respiratory failure with hypoxia J96.11 ; long-term (current) use of insulin Z79.4 ; Long-term current use of injectable noninsulin antidiabetic medication Z79.85 ; 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 ; 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 kidney disease, or unspecified chronic kidney disease I13.0 and Chronic kidney disease, stage 4 (severe) N18.[address] [address] 02/24/2025 Rajwinder Johns COPD (chronic obstructive pulmonary disease) J44.9 ; Type 2 diabetes mellitus with diabetic neuropathy, unspecified E11.40 ; Uncontrolled type 2 diabetes mellitus with hyperglycemia E11.65 ; Chronic respiratory failure with hypoxia J96.11 ; 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 Z79.4 ; Long-term current use of injectable noninsulin antidiabetic medication Z79.85 ; 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 ; 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 kidney disease, or unspecified chronic kidney disease I13.0 and Chronic kidney disease, stage 4 (severe) N18.[address] [address] 03/09/2025 Rajwinder Johns COPD (chronic obstructive pulmonary disease) J44.9 ; Type 2 diabetes mellitus with diabetic neuropathy, unspecified E11.40 ; Uncontrolled type 2 diabetes mellitus with hyperglycemia E11.65 ; Chronic respiratory failure with hypoxia J96.11 ; 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 Z79.4 ; Long-term current use of injectable noninsulin antidiabetic medication Z79.85 ; 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 ; 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 kidney disease, or unspecified chronic kidney disease I13.0 and Chronic kidney disease, stage 4 (severe) N18.4 [facility] [address] [place] [address] 03/21/2025 Rajwindersyed Johns COPD (chronic obstructive pulmonary disease) J44.9 ; Type 2 diabetes mellitus with diabetic neuropathy, unspecified E11.40 ; Uncontrolled type 2 diabetes mellitus with hyperglycemia E11.65 ; Chronic respiratory failure with hypoxia J96.11 ; long-term (current) use of insulin Z79.4 ; Long-term current use of injectable noninsulin antidiabetic medication Z79.85 ; 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 ; 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 kidney disease, or unspecified chronic kidney disease I13.0 and Chronic kidney disease, stage 4 (severe) N18.4 [facility] [address] [place] [address] 04/17/2025 Operations Clinical Type 2 diabetes mellitus [...] closed fracture with routine healing S82.851D ; long-term (current) use of insulin Z79.4 ; Long-term [...] and mobility R26.89 and Tachycardia, unspecified R00.[address] [address] 04/25/2025 Alessia Garza COPD (chronic obstructive pulmonary disease) J44.9 and Palliative care by specialist Z51.[address] [address] 06/19/2025 Alessia Garza COPD (chronic obstructive pulmonary disease) J44.9 and Palliative care by specialist Z51.[address] [address] 09/26/2024 Rajwinder Johns [address] [address] 10/10/2024 Rajwinder Johns [address] [address] 10/10/2024 Rajwinder Johns [address] [address] 12/02/2024 Rajwinder Johns [facility] (Closed) [address] [place] [address] 03/30/2025 Operations Clinical [facility] (Closed) [address] [place] [address] 04/05/2025 Opal Pulchtopesavanna [facility] [address] [place] [address] 04/26/2025 Opal Pulchtopek Assessments Encounter Date Diagnosis (ICD Code) Assessment Notes Treatment Notes Treatment Clinical Notes Section Notes 07/05/2024 COPD (chronic obstructive pulmonary disease) (ICD-10 - J44.9) Chronic/Resolved exacerbation - Member appears stable during visit without sxs of exacerbation today, o2 sat 98% - Had follow up with cnc machinist 2nd shift - Continue medications and inhalers as prescribed [...] - Observe fluid restrictions if advised by fruit and vegetable packer/PCP - Continue routine F/U with fruit and vegetable packer and PCP - Contact provider or call [...] sat 98% - Had follow up with cnc machinist 2nd shift - Continue medications and inhalers as prescribed [...] sat 98% - Had follow up with cnc machinist 2nd shift - Continue medications and inhalers as prescribed [...] sat 98% - Had follow up with cnc machinist 2nd shift - Continue medications and inhalers as prescribed [...] sat 98% - Had follow up with cnc machinist 2nd shift - Continue medications and inhalers as prescribed [...] sat 98% - Had follow up with cnc machinist 2nd shift - Continue medications and inhalers as prescribed [...] sat 98% - Had follow up with cnc machinist 2nd shift - Continue medications and inhalers as prescribed [...] to music. - Member considering assistance from [facility] - Follow up with PCP routinely, [...] to music. - Member considering assistance from [facility] but declines today - Follow up [...] listening to music. - Member agreeable to [facility] referral today - Follow up with [...] left with him - Member agreeable to [facility] referral today - Follow up with [...] listening to music. - Member agreeable to [facility] referral - In process - Follow [...] listening to music. - Member agreeable to [facility] referral - In process - Follow [...] listening to music. - Member agreeable to [facility] referral - In process - Follow [...] listening to music. - Member agreeable to [facility] referral - awaiting contact - Follow [...] pathways around bedroom, apartment in general - Son/WOOD HEEL FITTER MACHINE asked to help with this - Refer [...] (ICD-10 - Z51.5) -Palliative care services reviewed. Member/caregiver consented to today's visit and palliative services. -Discussed disease trajectory and associated symptoms -GOC discussion: See social history section -Advanced Care Planning: HCP: Copy in EMR (eCW) 09/03/2023 Lewis Pappas. MOLST: Completed 04/13/24. DNR/DNI/use non-inv vent/transfer to hospital. To be scanned into eCW -Palliative care contact information reviewed and provided. -[employer] services/contact information reviewed and provided. -Collaborated with PCP and CCA hiv/aids care nurse 05/22/2025 COPD (chronic obstructive pulmonary disease) (ICD-10 - J44.9) - Worsening symptoms reviewed as well as when to contact palliative care or PCP 05/22/2025 Palliative care by specialist (ICD-10 - Z51.5) -Discussed disease trajectory and associated symptoms -Encouraged to maintain follow-up appts as scheduled given recent hospitalization -Palliative care contact information reviewed and provided. -[employer] services/contact information reviewed and provided. -Collaborated with PCP and CCA hiv/aids care nurse 06/19/2025 COPD (chronic obstructive pulmonary disease) (ICD-10 - J44.9) 06/19/2025 Palliative care by specialist (ICD-10 - Z51.5) -Worsening symptoms reviewed as well as when to contact palliative care or PCP -Encouraged to follow-up with GI specialist as scheduled for colitis follow-up -Palliative care contact information reviewed and provided. -[employer] services/contact information reviewed and provided. -Collaborated with PCP for prescription request for shower chair with back -Collaborating with CP regarding request for WOOD HEEL FITTER MACHINE evaluation, home delivered meals, and transportation 04/17/2025 Uncontrolled type 2 diabetes mellitus with [...] Chronic/Labile - continues with complaints, seen at [facility] yesterday and received c/b today no [...] medication as prescribed - [facility] - Recommend yearly eye exams, A1c - Recommend diabetic diet - offered referral to informatics educator - declines - Discussed potential for [...] medication as prescribed - Novolog per [facility] - Recommend yearly eye exams, A1c - Recommend diabetic diet - offered referral to informatics educator - declines - Discussed potential for [...] Recommend diabetic diet - offered referral to informatics educator - declines - Discussed potential for [...] Recommend diabetic diet - offered referral to informatics educator - declines - Discussed potential for [...] Recommend diabetic diet - offered referral to informatics educator - declines - Discussed potential for [...] pain/stress on joints - Continue PT at [facility] - Use assistive [...] pain/stress on joints - Continue PT at [facility] - Use assistive [...] pain/stress on joints - Continue PT at [facility] - Use assistive [...] pain/stress on joints - Continue PT at [facility] - Use assistive [...] pain/stress on joints - Continue PT at [facility] - Use assistive devices [...] pain/stress on joints - Continue PT at [facility] - Use assistive [...] pain/stress on joints - Continue PT at [facility] - Use assistive [...] to music. - Member declines assistance from [facility] - Follow up with PCP and [...] to music. - Member declines assistance from [facility] - Follow up with PCP and prescriber - Angie Mccray advised to f/u on referral to community therapist - Reminded to call pcp or this APC for worsening anxiety 08/16/2024 RACHNA (generalized anxiety disorder) (ICD-10 - F41.1) Chronic/Stable Reviewed nature of anxiety, which can range from excessive worry to incapacitating baseless fear. Reviewed nonmedical management techniques. Member denies increased s/s of anxiety. Member declines assistance from [facility] - Follow up with PCP and [...] s/s of anxiety. Member declines assistance from [facility] - Follow up with PCP and [...] s/s of anxiety. Member declines assistance from [facility] - Follow up with PCP and [...] s/s of anxiety. Member declines assistance from [facility] - Follow up with PCP and [...] s/s of anxiety. Member declines assistance from [facility] - Follow up with PCP and [...] s/s of anxiety. Member declines assistance from [facility] - Follow up with PCP and [...] s/s of anxiety. Member declines assistance from [facility] - Follow up with PCP and prescriber - Angie Mccray, advised to f/u on referral to community therapist - Reminded to call pcp or this APC for worsening anxiety 07/05/2024 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) 07/07/2024 [...] by controlling BP. Continue to f/u with PCP/Branch Billing Payroll Clerk routinely 11/04/2024 Hypertensive heart and chronic kidney [...] by controlling BP. Continue to f/u with PCP/Branch Billing Payroll Clerk routinely 10/28/2024 Dementia, unspecified, without behavioral disturbance [...] by controlling BP. Continue to f/u with PCP/Branch Billing Payroll Clerk routinely 11/28/2024 Hypertensive heart and chronic kidney [...] by controlling BP. Continue to f/u with PCP/Branch Billing Payroll Clerk routinely 12/16/2024 Hypertensive heart and chronic kidney [...] by controlling BP. Continue to f/u with PCP/Branch Billing Payroll Clerk routinely 12/27/2024 Type 2 diabetes mellitus with [...] loss - Follow up with PCP and Phone Screener routinely - Seek ED evaluation for hypoxia, dyspnea, chest pain 07/15/2024 Uncontrolled type 2 diabetes mellitus with [...] failure with hypoxia (ICD-10 - J96.11) 01/27/2025 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 (ICD-10 - Z79.4) 2025 Chronic respiratory failure with hypoxia (ICD-10 - J96.11) 01/30/2025 Chronic respiratory failure with hypoxia (ICD-10 - J96.11) 02/14/2025 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 (ICD-10 - Z79.4) 04/17/2025 RACHNA (generalized anxiety disorder) (ICD-10 - F41.1) 03/21/2025 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 (ICD-10 - Z79.4) 02/24/2025 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 (ICD-10 - Z79.4) 03/09/2025 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 (ICD-10 - Z79.4) [...] noninsulin antidiabetic medication (ICD-10 - Z79.85) 01/30/2025 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 (ICD-10 - Z79.4) 01/27/2025 Long-term current use of injectable noninsulin antidiabetic medication (ICD-10 - Z79.85) 2025 long-term (current) use of insulin (ICD-10 - Z79.4) 12/27/2024 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 (ICD-10 - Z79.4) [...] disease, stage 3b (ICD-10 - N18.32) 07/07/2024 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 (ICD-10 - Z79.4) 07/15/2024 Chronic kidney disease, stage 3b (ICD-10 - N18.32) 07/07/2024 Major depressive disorder, recurrent episode, moderate (ICD-10 - F33.1) F41.1 RACHNA Chronic/Stable - Reviewed nature of anxiety and depressive sxs - Reminded to schedule f/u with Angie Mccray prescriber and to f/u with new therapist in community as referred by Angie - Reviewed nonmedical management techniques - Continue medications as prescribed - Continue outpatient F/U with psych/prescribers and involve [facility] team as appropriate - Monitor for increased sxs of depression/anxiety and report acute changes to providers - Utilize emergency services if having sxs of SI/HI/AVH as appropriate 07/22/2024 Morbid (severe) obesity due to excess calories (ICD-10 - E66.01) Z68.41 BMI 40.0-44.9, adult Chronic/Not Controlled - Weight gain since home from [facility] - Avoid gaining additional weight and try [...] Controlled - Weight gain since home from [facility] - Avoid gaining additional weight and try [...] Controlled - Weight gain since home from [facility] - Avoid gaining additional weight and try [...] Controlled - Weight gain since home from [facility] - Avoid gaining additional weight and try [...] Controlled - Weight gain since home from [facility] - Avoid gaining additional weight and try [...] Controlled - Weight gain since home from [facility] - Avoid gaining additional weight and try [...] exacerbation Continue nebulizer treatments as prescribed by cnc machinist 2nd shift Recommend closing windows, running air purifier or [...] exacerbation Continue nebulizer treatments as prescribed by cnc machinist 2nd shift Recommend closing windows, running air purifier or [...] - I13.0) Chronic/Stable - Denies chest pain, STEPHESN, blurred vision or other acute cardiac complaints - Educated member on importance of medication adherence for BP control - Encouraged DASH eating plan, exercise as tolerated, moderation of EtOH consumption, weight loss if indicated, smoking cessation if indicated - labs to monitor eGFR, UACR. avoid nephrotoxic meds - Recommend measuring and logging home b/p's with goal <140/90, ideally <130/80 - F/U with PCP/fruit and vegetable packer/n ephrologist for ongoing mgmt and monitoring 02/24/2025 [...] goal <140/90, ideally <130/80 - F/U with PCP/fruit and vegetable packer/n ephrologist for ongoing mgmt and monitoring 03/21/2025 [...] goal <140/90, ideally <130/80 - F/U with PCP/fruit and vegetable packer/n ephrologist for ongoing mgmt and monitoring 04/17/2025 [...] goal <140/90, ideally <130/80 - F/U with PCP/fruit and vegetable packer/n ephrologist for ongoing mgmt and monitoring 01/27/2025 [...] as BP remains stable - F/U with PCP/fruit and vegetable packer/n ephrologist for ongoing mgmt and monitoring 01/30/2025 [...] Recommend diabetic diet - offered referral to informatics educator - declines - Discussed potential for [...] Recommend diabetic diet - offered referral to informatics educator - declines - Discussed potential for [...] medication as prescribed - Novolog per [facility] - Recommend yearly eye exams, A1c - Recommend diabetic diet - offered referral to informatics educator - declines - Discussed potential for [...] medication as prescribed - Novolog per , [facility] - Recommend yearly eye exams, A1c - Recommend diabetic diet - offered referral to informatics educator - declines - Discussed potential for [...] Z68.41) 07/07/2024 Mixed incontinence (ICD-10 - N39.46) 07/15/2024 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 (ICD-10 - Z79.4) 07/22/2024 long-term (current) use of insulin (ICD-10 - Z79.4) [...] will continue to monitor s/sx UTIs 07/28/2024 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 (ICD-10 - Z79.4) 08/02/2024 long-term (current) use of insulin (ICD-10 - Z79.4) 08/08/2024 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 (ICD-10 - Z79.4) 08/23/2024 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 (ICD-10 - Z79.4) 08/16/2024 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 (ICD-10 - Z79.4) 08/30/2024 long-term (current) use of insulin (ICD-10 - Z79.4) [...] as BP remains stable - F/U with PCP/fruit and vegetable packer/n ephrologist for ongoing mgmt and monitoring 10/28/2024 [...] goal <140/90, ideally <130/80 - F/U with PCP/fruit and vegetable packer/n ephrologist for ongoing mgmt and monitoring 03/09/2025 [...] by controlling BP. Continue to f/u with PCP/Branch Billing Payroll Clerk routinely 10/21/2024 Hypertensive heart and chronic kidney [...] by controlling BP. Continue to f/u with PCP/Branch Billing Payroll Clerk routinely 10/07/2024 Hypertensive heart and chronic kidney [...] by controlling BP. Continue to f/u with PCP/Branch Billing Payroll Clerk routinely 09/29/2024 Hypertensive heart and chronic kidney [...] by controlling BP. Continue to f/u with PCP/Branch Billing Payroll Clerk routinely 09/22/2024 Hypertensive heart and chronic kidney [...] by controlling BP. Continue to f/u with PCP/Branch Billing Payroll Clerk routinely 09/15/2024 Hypertensive heart and chronic kidney [...] by controlling BP. Continue to f/u with PCP/Branch Billing Payroll Clerk routinely 08/30/2024 Long-term current use of injectable [...] RACHNA (generalized anxiety disorder) (ICD-10 - F41.1) 07/07/2024 ALDO on CPAP (ICD-10 - G47.33) [...] joints - Will start outpatient PT at [facility] by next week. - Use [...] PLACE ORDER FOR HOME PEDAL DEVICE THROUGH [employer] 09/15/2024 COPD (chronic obstructive pulmonary disease) (ICD-10 [...] joints - Will start outpatient PT at [facility] by next week. - Use [...] PLACE ORDER FOR HOME PEDAL DEVICE [facility]ROUGH [employer] [facility] 08/08/2024 Other chronic pain (ICD-10 - [...] joints - Will start outpatient PT at [facility] by next week. - Use [...] PLACE ORDER FOR HOME PEDAL DEVICE THROUGH [employer] [facility] 08/16/2024 Other chronic pain (ICD-10 - [...] joints - Will start outpatient PT at [facility] by next week. 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) 07/07/2024 Chronic dacryocystitis of bilateral lacrimal passages [...] obstructive pulmonary disease) (ICD-10 - J44.9) 10/21/2024 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 (ICD-10 - Z79.4) 10/14/2024 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 (ICD-10 - Z79.4) 10/28/2024 COPD (chronic obstructive pulmonary disease) (ICD-10 - J44.9) 10/07/2024 long-term (current) use of insulin (ICD-10 - Z79.4) 09/29/2024 long-term (current) use of insulin (ICD-10 - Z79.4) 09/22/2024 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 (ICD-10 - Z79.4) 09/15/2024 long-term (current) use of insulin (ICD-10 - Z79.4) [...] monitor 07/07/2024 Polymyalgia rheumatica (ICD-10 - M35.3) 07/07/2024 Uncontrolled type 2 diabetes mellitus with [...] M47.819) 07/07/2024 Extrapyramidal disorder (ICD-10 - G25.9) 04/17/2025 Arthritis, low back (ICD-10 - M47.819) 04/17/2025 Recurrent UTI (urinary tract infection) (ICD-10 - N39.0) 07/07/2024 Panlobular emphysema (ICD-10 - J43.1) 10/28/2024 Chronic kidney disease, stage 3b (ICD-10 - N18.32) 10/28/2024 Recurrent UTI (urinary tract infection) (ICD-10 - N39.0) 07/07/2024 Chronic respiratory failure with hypoxia (ICD-10 - J96.11) 04/17/2025 Mixed incontinence (ICD-10 - N39.46) 04/17/2025 Displaced trimalleolar fracture of right lower leg, subsequent encounter for closed fracture with routine healing (ICD-10 - S82.851D) 07/07/2024 Chronic kidney disease, stage 3b (ICD-10 - N18.32) 10/28/2024 Mixed incontinence (ICD-10 - N39.46) 10/28/2024 Displaced trimalleolar fracture of right lower leg, subsequent encounter for closed fracture with routine healing (ICD-10 - S82.851D) 07/07/2024 Dementia, unspecified, without behavioral disturbance (ICD-10 - F03.90) Chronic/Stable - Mild memory issue - member is a/o during visit; patient and family deny confusion and wandering - member requires assistance, cueing for ADL's, WOOD HEEL FITTER MACHINE for IADL's - f/u PCP prn 04/17/2025 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 (ICD-10 - Z79.4) 04/17/2025 Long-term current use of injectable noninsulin antidiabetic medication (ICD-10 - Z79.85) 07/07/2024 Unilateral primary osteoarthritis, left knee (ICD-10 - M17.12) 10/28/2024 long-term (current) use of insulin (ICD-10 - Z79.4) [...] pain or mobility Continue home PT - [facility] Continue tylenol as needed 07/07/2024 Arthritis, low back (ICD-10 - M47.819) 10/28/2024 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) 04/17/2025 Morbid (severe) obesity due to excess calories (ICD-10 - E66.01) 04/17/2025 Body mass index [BMI] 40.0-44.9, adult (ICD-10 - Z68.41) 10/28/2024 Morbid (severe) obesity due to excess calories (ICD-10 - E66.01) 07/07/2024 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) 07/07/2024 Other [...] R26.89) 04/17/2025 Tachycardia, unspecified (ICD-10 - R00.0) 07/15/2024 Other Provided contac t information for [...] Insured Coverage Start Date Coverage End Date [facility] [employer] ([id number]) [address] [facility] [facility] [address] [place] [address] [id number] Mine Peacock Self - patient is the [...] ankle ORIF 04/2024 Hospitalization History Reason Date(Month/Year) [facility] ED - Hyperglycemia 2024 [facility] ED- COPD exac, ?UTI 12/23 [facility] ED - COPD exac 06/26/2024 [facility] for STR following ankle fracture 05/2024-06/22/2024 [facility] Right bi-malleolar fracture 04/2024 [facility] for dysuria left AMA d/t long wait time 04/03/2024 [facility] bronchitis 02/13/24 [facility] chest and back pain (ACS ruled ou t) 12/04/23 [facility] chest and back pain (ACS ruled ou t) 12/02/23 [facility] - ? Sepsis (ruled out) 11/28- [facility]- COPD exac, UTI 11/17-04/05
--- OUTSIDE RECORDS SUMMARY | 2025-07-04 12:16 | XMS_ITS ---
Author Name Vicente Zhao Address [address] [place] [address] Phone [phone] Organization [facility] Care Team Providers Care Assembly Lead Person Name Role Phone Cristin Ogden Unavailable [phone] Reason for Referral Not Available Allergies, adverse [...] Data Available BD UF MINI PEN NEEDLE [id number] USE TO ADM INISTER INSULIN TWICE DAILY [...] Data Available BD UF MINI PEN NEEDLE [id number] USE TO ADM INISTER INSULIN TWICE DAILY [...] Female Functional Status Functional Category Effective Dates ON AWAKE COUNSELOR assists with cooking, cl eaning, laundry, showering and dressing. Pt reports using assistive device of: 2023-03-30 Mental Status Status Date AOx 2023-03-30 Assessments Not Available Plan of Care Not Available
--- OUTSIDE RECORDS SUMMARY | 2025-07-04 12:16 | XMS_ITS ---
Author Organization [facility] Care Team Providers Care Manager Employment Name Role Phone Uriel Dorsey Unavailable Unavailable Ramona Corado Unavailable Unavailable Delaney Sherman Unavailable Unavailable Allergies and adverse reactions Code CodeSystem Substance Reaction Severity StartDate Concern Status adhesive bandages Unknown 04/13/2024 act conchita 29919 RXNORM Tigan Unknown 04/13/2024 active Care Team Name Role Address Phone Organization Dates Delaney Sherman PCP [address] [facility] [address], [place], [address], [facility] (Office): : [facility] 04/13/2024 - 06/22/2024 Uriel Dorsey [address] [facility] [address] [place] [address], [address], [facility] (Office): : : [facility] 04/13/2024 - 06/22/2024 Ramona Corado [address] [facility] [address], [place], [address], [facility] (Office): : [facility] 04/13/2024 - 06/22/2024 Goals Section Goals Description Status Target Date Assistance will be provided for all deficits in ADL's during stay. Active 07/13/2024 Bayard my code status wishes through next review Active 07/13/2024 I will assist in maintaining my blood glucose levels are within normal range though the review date. Active 07/13/2024 I will be compliant with lab s & diagnostics if ordered by my doctor through the review date. Active 07/13/2024 I will be compliant with the medication regimen & therapies prescribed by my doctor. I will be free of any discomfort or adverse side effects to therapies through the review date. Active 07/13/2024 I will be compliant with the non medication therapies, medication regimen & therapies prescribed by my doctor. I will be free of any discomfort or adverse side effects to therapies through the review date. Active 07/13/2024 I will be compliant with the non medication therapies, medication regimen & therapies prescribed by my doctor. I will be free of any discomfort or adverse side effects to therapies through the review date. Active 07/13/2024 I will be compliant with the non medication therapies, medication regimen & therapies prescribed by my doctor. I will not have an interruption in normal activities due to pain through the review date. I will be free of any discomfort or adverse side effects to therapies through the review date. Active 07/13/2024 I will be compliant with the non-pharmacological therapies, medication regimen & therapies prescribed by my doctor. I will not have an interruption in normal activities due to pain through the review date. I will be free of any discomfort or adverse side effects to therapies through the review date. Active 07/13/19 I will be compliant with beatriz keene skin assessments though review date. Active 07/13/2024 I will be free of falls through the review date. Active 07/13/2024 I will be free of major decl ine in ADL status through the review date. Active 07/13/2024 I will be free of major decl ine in ADL status through the review date. Active 07/13/2024 I will be provided a calm and relaxed environmen t as needed. Active 07/13/2024 I will be transported to all Medical appointments per facility or community source during Med A stay. Active 07/13/2024 I will comply with GDR recommendations through r eview date. Active 07/13/2024 I will comply with given emo tional support as needed from staff through the review date. Active 07/13/2024 I will comply with medicatio n management, treatment management and Vitals through review date. Active 07/13/2024 I will demonstrate adjustmen t to prison placement by review date. Active 07/13/2024 I will express satisfaction with the type of activities I am involved in when asked through the review date. Active 2024 I will identify ways of incr easing meaningful relationships by the review date. Active 07/13/2024 I will learn to effectively cope with my feelings of (SPECIFY: isolation, unhappiness, anger, loss) by the review date. Active 07/13/2024 I will maintain optimal stat us and quality of life through review date. Active 07/13/2024 I will maintain optimal stat us and quality of life within limitations imposed by my disorder(s) through review date. Active 07/13/2024 I will return to prior level of function after wound healing and rehabilitation by review date. Active 07/13/2024 I will verbalize feelings re lated to emotional state by review date. Active 07/13/2024 Resident/POA/Guardian will be notified of all ch anges to care. Active 07/13/2024 Will have meal intakes >75% at most meals through next review. W ill tolerate diet without difficulty through next review. W ill have stable weight without significant change through next review. W ill maintain adequate hydration through next review. W ill have no s/sx hypo/hyperglycemia through next review. Active 07/13/2024 Immunizations Immunization Status Vaccine Details Vaccine Code CodeSystem Dontrell e Notes TB 2 Step Mantoux Skin Test new tuberculin skin test; unspecified formulation 98 CVX created date: 05/26/2024 consent date: 04/21/2024 TB 2 Step Mantoux Skin Test completed tuberculin skin test; unspecified formulation lotNumber: [id number] expiry: 11/09/2026 Mfg: cuellar ofi pasterur Given 0.1 ml Right Forearm intradermally Step 1 of Multi-step with next step required 98 CVX created date: 04/21/2024 consent date: 04/21/2024 administere d date: 04/21/2024 Mental Status Section Date Assessment Total Score Description 06/22/2024 CAM 0 No delirium ind icated 04/20/2024 BIMS 14 cognitively int act CAM 0 No delirium ind icated PHQ-9 10 moderate depres catherine Insurance Providers Coverage Status Coverage Type Relationship to Subscriber Member Identifier Subscriber Identifier Group Identifier Payer Identifier and Other information 2024 Code: 51 Code System OID:2.16.840.1 .820683.3.221. 5 Code System Name: Source of Payment Typology (PHDSC) Display: Managed Care (Private) Translation: Code: HM Code System: OID:2.16.840.1 .372627.6.255. 1336 Code System Name: Insurance Type Code ([id number]) Display Name: Health Maintenance Organization (HMO) Plan Code: SELF Code System Name: HL7 RoleCode Code System OID:2.16.840.1 .640248.5.111 Display Name: Self [id number] Root: [id number] Payer Name: [facility] Address: [address] [address] City: [place] State: [place] Country: [facility] Code: 2 Code System OID:2.16.840.1 .498887.3.221. 5 Code System Name: Source of Payment Typology (PHDAZ) Display: Medicaid Translation: Code: 48 Code System: OID:2.16.840.1 .674776.6.255. 1336 Code System Name: Insurance Type Code ([id number]) Display Name: Medicaid Plan of Treatment Section Interventions Intervention Code Code System Display Name Proposed D ate Problems Problem # Description Date of onset Resolved Date Code CodeSystem Concern Status 1 ANXIETY DISORDER, UNSPECIFIED 04/13/[address] active 2 CHRONIC KIDNEY DISEASE, STAGE 3 UNSPECIFIED 04/13/[address] active 3 CHRONIC OBSTRUCTIVE PULMONARY DISEASE, UNSPECIFIED 04/13/[address] active 4 CHRONIC RESPIRATORY FAILURE WITH HYPOXIA 04/13/[address] active 5 DEPENDENCE ON SUPPLEMENTAL OXYGEN 04/13/[address] active 6 DEPRESSION, UNSPECIFIED 04/13/[address] active 7 DISPLACED TRIMALLEOLAR FRACTURE OF RIGHT LOWER LEG, SUBSEQUENT ENCOUNTER FOR CLOSED FRACTURE WITH ROUTINE HEALING 04/13/[address] active 8 HYPERLIPIDEMIA, UNSPECIFIED 04/13/[address] active 9 INSPECTOR BALL POINTS (CURRENT) USE OF INSULIN 04/13/[address] active 10 MORBID (SEVERE) OBESITY DUE TO EXCESS CALORIES 04/13/[address] active 11 MUSCLE WEAKNESS (GENERALIZED) 04/13/[address] active 12 OBSTRUCTIVE SLEEP APNEA (ADULT) (PEDIATRIC) 04/13/[address] active 13 OTHER FORMS OF DYSPNEA 04/13/[address] active 14 PAIN IN RIGHT ANKLE AND JOINTS OF RIGHT FOOT 04/13/[address] active 15 POLYMYALGIA RHEUMATICA 04/13/[address] active 16 RESTLESS LEGS SYNDROME 04/13/[address] active 17 TYPE 2 DIABETES MELLITUS WITHOUT COMPLICATIONS 04/13/[address] active 18 UNSPECIFIED FALL, SUBSEQUENT ENCOUNTER 04/13/[address] active 19 UNSTEADINESS ON FEET 04/13/[address] active Reason for Referral No Reasons for Referral Entered Social History Social History Observation Description Start Date End Date Code Code System Current Smoking Status Tobacco smoking consumption unknown 879200475 SNOMED CT Sex Assigned At Female 1950 63[address]-9 [facility] Gender Identity Sexual Orientation Vital Signs Code Code System Vitals Name Values and Units Timing Information 9279-1 LOINC Respiratory Rate Value=18.0 Units=/m in 06/22/2024 8462-4 LOINC Blood Pressure-Diastolic Value=56 Un its=mmHg 06/22/2024 8480-6 LOINC Blood Pressure-Systolic Uyysv=742 Un its=mmHg 06/22/2024 8310-5 LOINC Body Temperature Value=98.0 Units= F 06/22/2024 8867-4 LOINC Heart rate Value=81.0 Units=/min 05/2024 18815-8 [facility] O2 % BldC Oximetry Value=92.0 Units= % 06/22/2024 2339-0 [facility] Blood Sugar Iwqpv=753.0 Units=mg/dL 06/22/2024 82262-2 [facility] Pain Level Value=7.0 06/22/2024 25481-0 [facility] Weight Msryw=331.8 Units=Lbs 11/2023 8302-2 [facility] Height Value=60.0 Units=Inches 04/14/2024
--- OUTSIDE RECORDS SUMMARY | 2025-07-04 12:16 | XMS_ITS | Patient Health Record ---
Author Organization [facility] [place] Address [address] [facility] [place] [address] Care Team Providers Care Construction Driver Name Role Phone Chris BROWNE, [facility] Primary Care Provider Nik Horner Unavailable [phone] Allergies No Known Allergies Results Component Value [...] Problem Acquired hammer toe of right foot (3286021426232440 ) Other hammer toe(s) (acquired), right foot (M20.41) Active confirmed Response to treatment, Improvemen t Problem Acquired hammer toe of left foot (5748288952297623 ) Other hammer toe(s) (acquired), left foot (M20.42) Active confirmed Response to treatment, Improvemen t Problem Polyneuropathy due to type 2 diabetes mellitus (728694656) Type 2 diabetes mellitus with diabetic polyneuropathy (E11.42) Active confirmed Vital Signs Blood pressure diastolic 65 mm Hg 04/04/2025 Height 5 ft in 04/04/2025 Blood pressure systolic 128 mm Hg 04/04/2025 Weight 198 lbs 04/04/2025 BMI 38.67 kg/m2 04/04/2025 Procedures Procedure Date Ordered Date Performed Result Body Sit e 32327-BUDIAWR NAIL, 6 OR MORE 08/19/2024 N/A 35803-CFHL SKIN LESIONS, OVER 4 08/19/2024 N/A 15298-BTCPBEG NAIL, 6 OR MORE 11/15/2024 N/A 60645-FSUY SKIN LESIONS, OVER 4 11/15/2024 N/A 00491-AAUMWKD NAIL, 6 OR MORE 04/04/2025 N/A 51813-JEGV SKIN LESIONS, OVER 4 04/04/2025 N/A Encounters Encounter Location Date Provider Diagnosis [facility] [place] [address] [place] [address] 08/19/2024 Nik Hernandez Type 2 diabetes mellitus with diabetic polyneuropathy E11.42 ; Tinea unguium B35.1 ; Other hammer toe(s) (acquired), right foot M20.41 and Other hammer toe(s) (acquired), left foot M20.[address] [address] 11/15/2024 Nik Hernandez Type 2 diabetes mellitus with diabetic polyneuropathy E11.42 and Tinea unguium B35.[address] [address] 04/04/2025 Nikelbert Hernandez Type 2 diabetes mellitus with diabetic polyneuropathy E11.42 ; Tinea unguium B35.1 ; Other hammer toe(s) (acquired), right foot M20.41 and Other hammer toe(s) (acquired), left foot M20.[address] [address] 11/14/2024 Nik Hernandez [address] [address] 11/15/2024 Nik Hernandez Assessments Encounter Date Diagnosis [...] Treatment Pending Test Test Name Order Date 62368-AQKCXJO NAIL, 6 OR MORE 05/11/2020 15570-XSLXQEU NAIL, 6 OR MORE 09/21/2020 57423-JLQJBII NAIL, 6 OR MORE 12/21/2020 56896-JVFJPGW NAIL, 6 OR MORE 05/17/2021 22880-SMGBNLV NAIL, 6 OR MORE 08/23/2021 63805-IBKNNXC NAIL, 6 OR MORE 01/28/2022 08853-NDCRSPK NAIL, 6 OR MORE 03/01/2024 99791-OPYQFVQ NAIL, 6 OR MORE 08/19/2024 64079-QBKYJOE NAIL, 6 OR MORE 11/15/2024 99819-HIRLUCI NAIL, 6 OR MORE 04/04/2025 55477-XBGC SKIN LESIONS, OVER 4 04/04/20 25 89968-GFAA SKIN LESIONS, OVER 4 11/16/19 25 05530-XRRX SKIN LESIONS, OVER 4 08/19/19 25 24587-PLTT SKIN LESIONS, OVER 4 03/01/20 24 Next Appt Details Provider Name:Nik Hernandez , 08/01/2025 09:00:00 AM, [address] [place], [address], Insurance Providers Payer Name Payer Address Payer Phone Subscriber Number Group Number Insured Name Patient Relationship to Insured Coverage Start Date Coverage End Date [facility] [employer] S[employer] Claims [address] [facility] [place] [id number] Mine [place]ock Self - patient is the insured Medical (General) History Medical History History ICD Code Lung disease COPD CAD Depression Restless Leg type II diabetes Surgical History Surgery Date(Month/Year) teeth extraction Surgery 2019 Left Knee Replacement Right ankle ORIF 2023 Hospitalization History Reason Date(Month/Year) [facility]- fell broke her Right ankle 03/2024 [facility] fell about a week 01/2022 [facility] - pneumonia/ high sugars 15 days
--- OUTSIDE RECORDS SUMMARY | 2025-07-04 12:16 | XMS_ITS | Clinical Summary ---
Author Organization [facility] Address [address] [place] [address] Phone Care Team Providers Care Zipper Ironer Name Role Phone Shelbi Perez MD Primary Care Provider [phone] Allergies Active Allergy Reactions Criticality Noted Date Comments Adhesive Tape 08/12/2021 Other reaction(s): skin irritation Fluticasone-Sodium Chloride Other (see comments) 08/12/2021 Trimethobenzamide 07/09/2021 Other reaction(s): GI s/s Medications acetaminophen (TYLENOL) 500 MG tablet Active Albuterol Sulfate 108 (90 Base) MCG/ACT aerosol powder 1 puff by Other route Active Aclidinium [place] ([place]) Inhale 4 Active insulin [...] to complete this topic Insurance [place] ([id number]) [place] [facility] [employer] ([id number]) Care Teams Zipper Ironer Relationship Specialty Start Date End Date Shelbi Perez MD [facility] [place] [address] PCP - General Internal Medicine 09/18/21
== END 2025-07-04 11:40 | disposition home or self-care (01) ==
LOC: HO.HPS 10:55
PROVIDERS: PCP Internal Medicine; Visit Provider Internal Medicine
DX: G47.33 Obstructive sleep apnea (adult) (pediatric) (principal); J98.4 Other disorders of lung; G47.34 Idiopathic sleep related nonobstructive alveolar hypoventilation; R05.9 Cough, unspecified; J96.91 Respiratory failure, unspecified with hypoxia; J30.89 Other allergic rhinitis
CPT/HCPCS: 99214

== ENCOUNTER → 2025-07-04 10:54 | Outpatient (BNVA) | payer OTHER, SELFPAY | PROVIDERS: PCP Internal Medicine; Visit Provider Internal Medicine | DX: J96.91 Respiratory failure, unspecified with hypoxia (principal); G47.34 Idiopathic sleep related nonobstructive alveolar hypoventilation; G47.33 Obstructive sleep apnea (adult) (pediatric); J44.89 Other specified chronic obstructive pulmonary disease; J30.89 Other allergic rhinitis; J98.4 Other disorders of lung; R05.9 Cough, unspecified; Z79.899 Other long term (current) drug therapy | CPT/HCPCS: 99212 ==